=== PATIENT | male | born 1960 | race Caucasian/White ===

== ENCOUNTER 2023-03-11 18:21 | Outpatient (RCR) | payer MEDICARE, MEDICAID, SELFPAY | END 2023-04-04 23:59 | disposition home or self-care (01) | LOC: MM 18:21 | PROVIDERS: PCP Internal Medicine; Visit Provider Internal Medicine | DX: Z51.81 Encounter for therapeutic drug level monitoring (principal); Z79.01 Long term (current) use of anticoagulants ==

== ENCOUNTER 2023-03-14 07:46 | Outpatient (RCR) | payer MEDICARE, OTHER, SELFPAY | END 2023-04-11 13:52 | disposition home or self-care (01) | LOC: PT 07:46 | PROVIDERS: PCP Internal Medicine; Visit Provider Family Medicine | DX: M54.2 Cervicalgia (principal); R42 Dizziness and giddiness | CPT/HCPCS: 97012; 97110; 97140; 97163 ==

== ENCOUNTER 2023-04-01 13:20 | Outpatient (OUT) | payer OTHER, SELFPAY ==
--- NOTE | 2023-04-02 13:42 | CONS_ITS ---
CONSULTATION DATE: ??04/02/2023 TO:? Say Amato M.D. CHIEF COMPLAINT:? Includes right lower back pain. HISTORY OF PRESENT ILLNESS:? Review of systems, past medical/surgical history were obtained and documented on the health questionnaire and is available upon request. Patient is a 62-year-old male, reports having pain in the above area over the last 10 years.? It occurred spontaneously and increased gradually to its current state, where he complains to be having 5-7/10 pain, sharp in character in his lower back, worse on the right side, increased with activities such as standing, walking and performing transitioning maneuvers.? He feels most comfortable in the semi-recumbent position.? He denies any change in bowel and bladder habits or new sensorimotor changes in his lower extremities. MEDICATION:? Current medication includes tramadol.? He takes 50 mg pills, two pills at times up to t.i.d., which offers him only marginal relief.? Topiramate 50 mg two pills b.i.d. for his neuropathy and clonidine 0.1 mg b.i.d.? He was also on Coumadin 5 mg a day. His MARYLOU on today?s visit is 46. EXAM:? His examination is notable for patient having no clinical radiculopathy or myelopathy involving his lower extremities.? He had severe pain with lumbar facet loading maneuvers occurring bilaterally, markedly worse on the right than the left side, appearing most significantly in the L4 through S1 levels with associated myofascial spasm of the lumbar paravertebral muscles.? It is also noted that patient had hypoesthesia from approximately his waist on down distally.? IMPRESSION:? Our impression is patient with chronic pain secondary to lumbosacral spondylosis with facet joint loading pain clinically on the right side at L4-5, L5-S1, worse on the right than the left side; myofascial spasm of the lumbar paravertebral muscles. RECOMMENDATIONS:? I have recommended he consider undergoing CT scan of the lumbar spine without contrast for his lumbago.? I have placed him on baclofen 10 mg pills, half a pill to one pill t.i.d., initiate aquatic therapy and to proceed with a diagnostic right sided L4-5, L5-S1 facet joint injection under fluoroscopic guidance.? As part of providing excellent, safe, comprehensive care, the following was completed at our patient's visit: 1. A medication reconciliation and review to ensure accurate knowledge of current/active medications, including asking our patients to inform us about any wvmq-meh-uhsapds medications or herbal remedies/nutritional supplements/alternative remedies. 2. A review to specifically ensure our patients have had annual screening for: elevated body mass index (BMI, see intake chart for exact total), tobacco use, screening for depression, and screening for unhealthy alcohol use.? When screening is concerning, patients are provided with education and the specific recommendation to discuss the concerning health issue and treatment options with their primary care provider. SHANNA
== END 2023-04-01 13:21 | disposition home or self-care (01) ==
LOC: PM 13:22
PROVIDERS: PCP Internal Medicine; Visit Provider Anesthesiology Pain Medicine
DX: M47.817 Spondylosis without myelopathy or radiculopathy, lumbosacral region (principal); G89.29 Other chronic pain; M62.838 Other muscle spasm
CPT/HCPCS: G0463

== ENCOUNTER 2023-04-10 10:46 | Outpatient (RCR) | payer MEDICARE, MEDICAID, SELFPAY | END 2023-05-05 16:56 | disposition home or self-care (01) | LOC: MM 10:46 | PROVIDERS: PCP Internal Medicine; Visit Provider Internal Medicine | DX: Z51.81 Encounter for therapeutic drug level monitoring (principal); Z79.01 Long term (current) use of anticoagulants | CPT/HCPCS: 85610; G0463 ==

== ENCOUNTER 2023-04-16 07:32 | Outpatient (OUT) | payer MEDICARE, SELFPAY ==
--- NOTE | 2023-04-16 07:36 | CT_ITS ---
The [address] [address] Patient Name: ANDRY PIERRE MRN: [id number] date: 1960 Sex: M Assigned Patient Location: CT Current Patient Location: [facility] Accession/Order Number: [id number] Exam Date: 04/16/2023 07:43 Report Date: 04/16/2023 10:50 At the request of: MARY SANZ Procedure: CT lumbar spine wo con EXAM: CT lumbar spine wo con CLINICAL INDICATION: Lumbar Spondylosis, multiple falls COMPARISON: CT abdomen/pelvis 01/07/2023. TECHNIQUE: Multiple axial images were obtained of the lumbar spine. Soft tissue and bone windows in coronal and sagittal planes were obtained and reviewed. Dose reduction techniques were achieved by using automated exposure control and/or adjustment of mA and/or kV according to patient size and/or use of iterative reconstruction technique. FINDINGS: Normal osseous mineralization. Five nonrib-bearing lumbar-type vertebral bodies demonstrate maintained heights and anterior to posterior alignment. No fracture or traumatic malalignment. No acute prevertebral or paraspinal soft tissue abnormalities. Visualized osseous pelvis is intact. Mild multilevel spondylotic changes with varying degrees of osteophytic ridging and facet/ligamentum flavum hypertrophy. These are similar to 01/07/2023. Slight disc bulges at L3-L4 and L5-S1. No high-grade spinal canal or foraminal narrowing at any lumbar level. No acute abnormality in the visualized abdomen or pelvis. CT/CT lumbar spine wo con IMPRESSION: 1. No lumbar spine fracture or traumatic malalignment. No substantial change since 01/07/2023. 2. Mild multilevel lumbar spondylotic changes. Electronically authenticated by: AKBAR HERNANDEZ Date: 04/16/2023 10:50
== END 2023-04-16 07:33 | disposition home or self-care (01) ==
LOC: CT 07:32
PROVIDERS: PCP Family Medicine; Visit Provider Anesthesiology Pain Medicine
DX: M47.816 Spondylosis without myelopathy or radiculopathy, lumbar region (principal)
CPT/HCPCS: 72131; 85610; G0463

== ENCOUNTER 2023-04-22 07:26 | Day surgery (SDC) | payer MEDICARE, SELFPAY ==
[2023-04-22 07:56] LABS: INR 1.67; Prothrombin Time 17.2 sec (9.0-11.6)
[2023-04-22 08:32] VITALS: BP 124/88; PULSE 60; RESP 16; TEMP 36.2; O2SAT 98
[2023-04-22 08:44] LABS: Glucometer 130 mg/dL (74-106)
[2023-04-22] MEDS: BUPIVACAINE HCL 0.25% PF 25 MG/10 ML VIAL 4 ML INJ (09:07)
--- NOTE | 2023-04-22 10:08 | W.PM.PROCNOT ---
Date of procedure: 04/22/23 Pre-op diagnosis: Lumbar Spondylosis Post-op diagnosis: same Procedure: Right Lumbar L4/5, L5/S1 facet injection Under fluoroscopic guidance Solution injected: 2millilitersMarcaine 0.25% Anesthesia :none Immediate complications none Time out process compliant After informed consent obtained from the patient placed in the Prone proposition . area was prepped and draped in a sterile fashion using betadine. 25 gauge spinal needle inserted over each of the above mentioned target areas . [place] were directed towards the target under fluoroscopic guidance . after encountering each of the targets , no indication of intravascular intraneuronal or intrathecal needle tip placement. Then 0 .5 to 1 Milliliter was injected at each level. [place] removed postoperatively. patient transferred to recovery in stable condition to be discharged home after meeting criteria Surgeon: Sandy Kumar
[2023-04-22 13:29] VITALS: BP 152/82; BP 161/83; PULSE 56; RESP 20; O2SAT 95; O2SAT 96
== END 2023-04-22 09:13 | disposition home or self-care (01) ==
LOC: SURGOUT 07:27
PROVIDERS: PCP Internal Medicine; Visit Provider Anesthesiology Pain Medicine
DX: M47.816 Spondylosis without myelopathy or radiculopathy, lumbar region (principal)
CPT/HCPCS: 36415; 64493; 64494; 82948; 85610

== ENCOUNTER 2023-05-06 09:13 | Outpatient (RCR) | payer MEDICARE, MEDICAID, SELFPAY | END 2023-06-05 17:30 | disposition home or self-care (01) | LOC: MM 09:13 | PROVIDERS: PCP Family Medicine; Visit Provider Internal Medicine | DX: Z51.81 Encounter for therapeutic drug level monitoring (principal); Z79.01 Long term (current) use of anticoagulants ==

== ENCOUNTER 2023-05-15 13:35 | Outpatient (OUT) | payer MEDICARE, SELFPAY ==
--- NOTE | 2023-05-15 | CONS_ITS ---
PROCEDURE DATE: ??05/15/2023 PROCEDURE:? Trigger point injection right erector spinae muscle at the L5 level. PREOPERATIVE DIAGNOSIS:? Pain secondary to myofascial spasm. POSTOPERATIVE DIAGNOSIS:? Pain secondary to myofascial spasm. SOLUTION USED FOR INJECTION:? 2 mL of 2% lidocaine, 2 mL of 0.25% Marcaine, Kenalog 10 mg total of 5 mL and 2 mL were used for injection at the site. IMMEDIATE COMPLICATIONS:? None. PROCEDURE:? After informed consent was obtained from the patient, placed in the prone position.? Skin overlying the area was prepped with alcohol.?? A 22 gauge spinal needle was inserted over the anesthetized area and directed towards the belly of the right erector spinae muscle at the L5 level.? After having a positive twitch response, we injected 2 mL of solution.? No indication of intrathecal needle tip placement or intraneural injection.? Post procedure, needle was removed.? Patient reports reduction in pain symptoms post procedurally.? Patient had no sensory deficits post procedurally.? Also, of note, on examination today, the patient had dysesthesia and hypoesthesia overlying the distribution of the lateral cutaneous branch of the iliohypogastric nerve with myofascial spasm of the right gluteus medius muscle.? Patient had nothing to suggest any signs consistent with lumbar radiculopathy or myelopathy on today?s visit. SHANNA
== END 2023-05-15 13:36 | disposition home or self-care (01) ==
LOC: PM 13:35
PROVIDERS: PCP Internal Medicine; Visit Provider Anesthesiology Pain Medicine
DX: M62.838 Other muscle spasm (principal)
CPT/HCPCS: 20552

== ENCOUNTER 2023-05-27 12:45 | Outpatient (RCR) | payer MEDICARE, SELFPAY | END 2023-06-14 16:48 | disposition home or self-care (01) | LOC: PT 12:45 | PROVIDERS: PCP Family Medicine; Visit Provider Anesthesiology Pain Medicine | DX: M47.816 Spondylosis without myelopathy or radiculopathy, lumbar region (principal) | CPT/HCPCS: 97113; 97161; 97530 ==

== ENCOUNTER 2023-06-06 10:15 | Outpatient (RCR) | payer MEDICARE, MEDICAID, SELFPAY | END 2023-07-04 16:48 | disposition home or self-care (01) | LOC: MM 10:15 | PROVIDERS: PCP Family Medicine; Visit Provider Internal Medicine | DX: Z51.81 Encounter for therapeutic drug level monitoring (principal); Z79.01 Long term (current) use of anticoagulants ==

== ENCOUNTER 2023-06-10 10:18 | Day surgery (SDC) | payer MEDICARE, MEDICAID, SELFPAY ==
[2023-06-10 10:49] LABS: INR 3.42; Prothrombin Time 33.8 sec (9.0-11.6)
== END 2023-06-10 11:05 | disposition home or self-care (01) ==
PROVIDERS: PCP Family Medicine; Visit Provider Anesthesiology Pain Medicine
DX: Z53.8 Procedure and treatment not carried out for other reasons (principal); G57.91 Unspecified mononeuropathy of right lower limb
CPT/HCPCS: 36415; 85610

== ENCOUNTER 2023-06-24 11:37 | Day surgery (SDC) | payer MEDICARE, SELFPAY ==
[2023-06-24 12:16] LABS: Prothrombin Time 11.6 sec (9.0-11.6)
[2023-06-24 12:34] VITALS: BP 154/93; PULSE 68; RESP 16; TEMP 36.5; O2SAT 98
[2023-06-24 12:41] LABS: Glucometer 197 mg/dL (74-106)
[2023-06-24] MEDS: BUPIVACAINE HCL 0.25% PF 25 MG/10 ML VIAL 5 ML INJ (13:33)
[2023-06-24 13:35] VITALS: BP 181/101; BP 187/108; PULSE 59; RESP 20; O2SAT 96; O2SAT 97
--- NOTE | 2023-06-24 13:57 | W.PM.PROCNOT ---
Date of procedure: 06/24/23 Pre-op diagnosis: Right lateral cutaneous iliohypogastric neuritis Post-op diagnosis: same as pre-op Procedure: Right Lateral cutaneous branch Iliohypogastric nerve injection, diagnostic Performed under fluoroscopic guidance Immediate complications none Anesthesia: none Solution used for injection: In each syringe, 2 milliliters 0.25% Marcaine 2.5 mL is used for injection for each side Time out process compliant After informed consent obtained patient was brought to the procedure room placed in the prone position skin overlying the area was prepped and draped in a sterile fashion using betadine. 25 gauge spinal needle Insert over each of the target areas identified in fluoroscopy corresponding needles were advanced Under fluoroscopic guidance until the target/targets encountered , no indication of intravascular or Intraneuronal needle tip placement. Solution injected .needles removed post procedurally. patient transferred to recovery room in stable condition to be discharged home after meeting criteria Anesthesia: Local Surgeon: Snady Kumar Condition: stable
== END 2023-06-24 13:39 | disposition home or self-care (01) ==
LOC: SURGOUT 11:37
PROVIDERS: PCP Family Medicine; Visit Provider Anesthesiology Pain Medicine
DX: G57.81 Other specified mononeuropathies of right lower limb (principal); G57.11 Meralgia paresthetica, right lower limb; Z79.84 Long term (current) use of oral hypoglycemic drugs; Z79.01 Long term (current) use of anticoagulants
CPT/HCPCS: 36415; 64425; 77002; 82948; 85610

== ENCOUNTER 2023-07-03 08:00 | Outpatient (OUT) | payer MEDICARE, SELFPAY ==
--- NOTE | 2023-07-03 08:16 | P.CN_ITS ---
Consult Note: HPI Data of Consult Patient: known to practice within the last 3 years Requesting Physician: Kimmie Ayoub NP Primary Care Provider: Say Amato MD Consult Narrative Reason for consult: f/u Narrative: Jono Grace a pleasant 62 year old male presents for evaluation and management of low back pain and right LCIH neuritis. Recently underwent Right Lateral cutaneous branch Iliohypogastric nerve injection, diagnostic with 80% relief after procedure. Today rating pain 7/10 in right low back radiating down right leg. Pain is worse with walking, standing, twisting, bending, activity, stairs, activity. Medications are mildly-moderately beneficial. cc:: CC: Kimmie Ayoub NP Review of Systems ROS Status of ROS 10 or more systems reviewed and unremarkable except as noted in history and below Musculoskeletal Reports: back pain and joint pain Meds Home Medications and Allergies Home Medications Medication Instructions Recorded Confirmed Type atorvastatin 40 mg tablet 40 mg PO .QD 04/01/23 06/24/23 History baclofen 10 mg tablet 10 mg PO TID 04/01/23 06/24/23 History candesartan 8 mg tablet 8 mg PO .QD 04/01/23 06/24/23 History cetirizine 10 mg tablet 10 mg PO DAILY PRN allergy symptoms 04/01/23 06/24/23 History cholecalciferol (vitamin D3) 50 50 mcg PO DAILY 04/01/23 06/24/23 History mcg (2,000 unit) capsule (D3-2000) clonidine HCl 0.1 mg tablet 0.1 mg PO BID 04/01/23 06/24/23 History furosemide 40 mg tablet 40 mg PO BID 04/01/23 06/24/23 History insulin degludec 200 unit/mL (3 40 unit subcut BID 04/01/23 06/24/23 History mL) subcutaneous pen (Tresiba FlexTouch U-200 insulin) metformin 500 mg tablet 500 mg PO BID 04/01/23 06/24/23 History montelukast 10 mg tablet 10 mg PO .QD 04/01/23 06/24/23 History nifedipine 90 mg tablet,extended 90 mg PO .QD 04/01/23 06/24/23 History release 24 hr oxybutynin chloride 10 mg 10 mg PO .QD 04/01/23 06/24/23 History tablet,extended release 24 hr pantoprazole 40 mg tablet,delayed 40 mg PO .QD 04/01/23 06/24/23 History release potassium chloride 20 mEq 20 meq PO .QD 04/01/23 06/24/23 History tablet,extended release topiramate 50 mg tablet 50 mg PO Q12H 04/01/23 04/22/23 History tramadol 50 mg tablet 100 mg PO Q12H PRN pain 04/01/23 06/24/23 History warfarin 5 mg tablet 5 mg PO .QD 04/01/23 06/24/23 History hydrocodone 5 mg-acetaminophen 325 1 tab PO BID PRN pain 05/15/23 06/24/23 History mg tablet hydrocodone 5 mg-acetaminophen 325 1 tab PO BID PRN pain #60 tabs 05/15/23 06/24/23 Rx mg tablet Allergies Allergy/AdvReac Type Severity Reaction Status Date / Time diazepam [From Valium] Allergy Verified 06/24/23 12:42 gabapentin [From Neurontin] Allergy Verified 06/24/23 12:42 BETA BLOCKERS Allergy Headache Uncoded 06/24/23 12:42 Exam Constitutional Documenting provider has reviewed patient's vital signs: yes Common normals: no apparent distress, oriented x3, healthy appearing, alert and well nourished General appearance: cooperative Nutritional appearance: obese HENMT Common normals: normocephalic, hearing grossly normal bilaterally and moist oral mucous membranes Head and scalp: normocephalic Eye Common normals: PERRL Pupil: PERRL Neck & C-Spine Common normals: full ROM General: normal visual inspection Chest Common normals: inspection of chest normal Respiratory Common normals: normal respiratory effort, no retractions and no use of accessory muscles Back & Pelvis Lumbar spine/lower back: ROM limited, pain with ROM, lumbar spinal tenderness and straight leg raise positive right Sacroiliac joints: SI joint(s) abnormal Other: tenderness over the right LCIH nerve, positive thigh thrust, fabers, gaenslens pain following right LCIH nerve pattern radicular pain following L4-5 on right side Neuro Common normals: oriented x3, CN's II-XII intact bilaterally, moves all extremities, no focal motor deficits, no sensory deficits noted and deep tendon reflexes 2+ bilaterally Sensorium/orientation: alert Motor exam: strength 5/5 throughout and no movement abnormalities noted Psych Common normals: mental status grossly normal, thought process normal, cooperative, affect normal, speech normal and activity/motor behavior normal Speech: normal speech Thought process: normal thought process Results Additional Findings Additional findings: I have checked an [place]AR[place] report on this patient today and there are no aberrancies noted in the prescribing history.?? A drug screen was completed and reviewed within the last year, and if there has not been a drug screen completed we ordered one today to monitor higher risk, state monitored pain medication use. As part of providing excellent, safe, comprehensive care, the following was completed at our patient's visit: 1. A medication reconciliation and review to ensure accurate knowledge of current/active medications, including asking our patients to inform us about any [id number]-ycl-[id number] medications or herbal remedies/nutritional s upplements/alternative remedies. 2. A review to specifically ensure our patients have had annual screening for: elevated body mass index (BMI), tobacco use, screening for depression, and screening for unhealthy alcohol use. When screening is concerning, patients are provided with education and the specific recommendation to discuss the concerning health issue and treatment options with their primary care provider. Assessment and Plan Assessment and Plan (1) Lumbar radiculopathy, right: Assessment and Plan: The patient has had over 3 months of moderate to severe low back pain with functional impairment and inadequate response to conservative care including NSAIDS (unless there are contraindication such as concurrent blood thinners), multiple oral or topical pain medications, and home exercise program/physical therapy.? Patient has completed >6 weeks of guided home exercise program and/or formal physical therapy program without relief of their symptoms.?PT worsened pain was only able to do 2 visits. I have reviewed the imaging of the lumbar spine and no red flags were identified.? The imaging reveals radiographic findings consistent with lumbar radiculopathy ? The Oswestry Disability Index was completed, and the patient scored a 42%.? The patient noted the following:?? severe pain, pain prevents him from walking more than 100 yards, pain prevents him from sitting more than 100 yards, pain prevents him from standing more than 1 hour, because of his pain he gets less than 4 hours of sleep, pain has restricted social life and travel We discussed the risks and benefits of the procedure with the patient, and we are NOT planning on using sedation as outlined in the guidelines from Medicare unless there is a documented reason that sedation would be strongly recommended.?? ?The procedure will be completed with fluoroscopic guidance.? (2) Neuritis: Assessment and Plan: Right LCIH neuritis >80% pain relief and functional ability as a result of diagnostic injection (3) Sacroiliac joint dysfunction of right side: (4) Chronic anticoagulation: Assessment and Plan: warfarin (5) Diabetes: Plan L4-5 KORIN under fluoroscopy continue current medications, will be filling tramadol with PCP right LCIH thermal RFA under fluoroscopy f/u 2 weeks after KORIN
== END 2023-07-03 08:01 | disposition home or self-care (01) ==
LOC: PM 08:00
PROVIDERS: PCP Family Medicine; Visit Provider Nurse Practitioner
DX: M54.16 Radiculopathy, lumbar region (principal); M53.3 Sacrococcygeal disorders, not elsewhere classified; D68.318 Other hemorrhagic disorder due to intrinsic circulating anticoagulants, antibodies, or inhibitors; E11.9 Type 2 diabetes mellitus without complications; Z79.891 Long term (current) use of opiate analgesic; Z51.81 Encounter for therapeutic drug level monitoring
CPT/HCPCS: G0463

== ENCOUNTER 2023-07-07 02:36 | Outpatient (RCR) | payer MEDICARE, MEDICAID, SELFPAY | END 2023-08-05 17:40 | disposition home or self-care (01) | LOC: MM 02:36 | PROVIDERS: PCP Family Medicine; Visit Provider Internal Medicine | DX: Z51.81 Encounter for therapeutic drug level monitoring (principal); Z79.01 Long term (current) use of anticoagulants ==

== ENCOUNTER 2023-07-22 10:13 | Day surgery (SDC) | payer MEDICARE, SELFPAY ==
[2023-07-22 10:48] LABS: INR 1.05; Prothrombin Time 11.1 sec (9.0-11.6)
[2023-07-22 11:02] VITALS: BP 144/97; PULSE 76; RESP 16; TEMP 36.3; O2SAT 98
[2023-07-22 11:12] LABS: Glucometer 229 mg/dL (74-106)
[2023-07-22 11:55] VITALS: BP 157/71; PULSE 59; RESP 16; O2SAT 93
[2023-07-22] MEDS: LIDOCAINE HCL 2% PF 100 MG/5 ML VIAL 4 ML INJ (11:55)
[2023-07-22] MEDS: IOHEXOL 240 MG/ML - 10 ML VIAL INJ (11:55)
[2023-07-22] MEDS: BUPIVACAINE HCL 0.25% PF 25 MG/10 ML VIAL 2 ML INJ (11:55)
[2023-07-22] MEDS: METHYLPREDNISOLONE ACETATE 80 MG/ML VIAL INJ (11:55)
[2023-07-22] MEDS: 0.9 % SODIUM CHLORIDE 10 ML SYRINGE - SALINE FLUSH 2 ML INJ (11:55)
[2023-07-22 11:58] VITALS: BP 169/70; PULSE 72; RESP 16; O2SAT 93
--- NOTE | 2023-07-22 12:24 | P.ON_ITS ---
Date of procedure: 07/22/23 Pre-op diagnosis: Lumbar Radiculopathy Post-op diagnosis: same as pre-op Procedure: Lumbar 4/5 Epidural Steroid Injection Under fluoroscopic guidance Immediate complications none Solution used for injection: Marcaine 0.25% 2mL, 2cc Normal saline, Depo-Medrol 80mg Omnipaque 3 mL Anesthesia local 2% lidocaine up to 4ml Timeout process compliant After informed consent obtained. Patient brought to the procedure room placed in the prone position. Skin overlying the area was prepped and draped in a sterile fashion using betadine. 25 gauge needle used to raise a skin wheel with local anesthetic over the target area identified under fluoroscopy. A 17 gauge Touhy needle Was inserted over the anesthetized area and directed towards the inter- space under fluoroscopic guidance. Epidural space was identified with loss of resistance technique to air. Needle Tip placement confirmed with injection of contrast solution. Steroid solution was then injected. Anesthesia: Local Surgeon: Sandy Kumar Condition: stable
== END 2023-07-22 12:09 | disposition home or self-care (01) ==
LOC: SURGOUT 10:14
PROVIDERS: PCP Family Medicine; Visit Provider Anesthesiology Pain Medicine
DX: M54.16 Radiculopathy, lumbar region (principal); E11.9 Type 2 diabetes mellitus without complications; Z79.01 Long term (current) use of anticoagulants
CPT/HCPCS: 36415; 62323; 82948; 85610; J1040; Q9966

== ENCOUNTER 2023-08-06 08:29 | Outpatient (OUT) | payer MEDICARE, MEDICAID, SELFPAY ==
--- NOTE | 2023-08-06 09:05 | P.CN_ITS ---
Consult Note: HPI Data of Consult Requesting Physician: Kimmie Ayoub NP Primary Care Provider: Say Amato MD Consult Narrative Reason for consult: f/u Narrative: Jono Grace a pleasant 62 year old male presents for evaluation and management of chronic low back pain with radiculopathy. unfortunately patient had no relief from L4-5 interlaminar KORIN. Patient continues to have moderate to severe low back pain that is radiating into bilateral legs, pain worse on right side. Patient has fallen again since last visit. Today rating pain 8/10 in low back and bilateral hips. cc:: CC: Kimmie Ayoub NP Review of Systems ROS Status of ROS 10 or more systems reviewed and unremarkable except as noted in history and below Musculoskeletal Reports: back pain and joint pain PFSH PFSH Medical History Acid reflux ?K21.9 - Gastro-esophageal reflux disease without esophagitis (ICD-10) Angina at rest ?I20.89 - Other forms of angina pectoris (ICD-10) CHF (congestive heart failure) ?I50.9 - Heart failure, unspecified (ICD-10) COPD (chronic obstructive pulmonary disease) ?J44.9 - Chronic obstructive pulmonary disease, unspecified (ICD-10) Emphysema lung ?J43.9 - Emphysema, unspecified (ICD-10) High cholesterol ?E78.00 - Pure hypercholesterolemia, unspecified (ICD-10) Implantable loop recorder present ?Z95.818 - Presence of other cardiac implants and grafts (ICD-10) Kidney failure ?N19 - Unspecified kidney failure (ICD-10) Palpitations ?R00.2 - Palpitations (ICD-10) Stroke ?I63.9 - Cerebral infarction, unspecified (ICD-10) Surgical History H/O arthroscopic knee surgery ?Z98.890 - Other specified postprocedural states (ICD-10) H/O inguinal hernia repair ?Z98.890 - Other specified postprocedural states (ICD-10) ?Z87.19 - Personal history of other diseases of the digestive system (ICD-10) History of Achilles tendon repair ?Z98.890 - Other specified postprocedural states (ICD-10) History of ankle surgery ?Z98.890 - Other specified postprocedural states (ICD-10) History of cardiac cath ?Z98.890 - Other specified postprocedural states (ICD-10) History of carpal tunnel release ?Z98.890 - Other specified postprocedural states (ICD-10) History of hydrocelectomy ?Z98.890 - Other specified postprocedural states (ICD-10) History of sinus surgery ?Z98.890 - Other specified postprocedural states (ICD-10) History of tonsillectomy ?Z90.89 - Acquired absence of other organs (ICD-10) Hx of cholecystectomy ?Z90.49 - Acquired absence of other specified parts of digestive tract (ICD- 10) Status post deep brain stimulator placement ?Z96.89 - Presence of other specified functional implants (ICD-10) Status post emergency tracheotomy for assistance in breathing ?Z93.0 - Tracheostomy status (ICD-10) Meds Home Medications and Allergies Home Medications Medication Instructions Recorded Confirmed Type atorvastatin 40 mg tablet 40 mg PO .QD 04/01/23 07/22/23 History baclofen 10 mg tablet 10 mg PO TID 04/01/23 07/22/23 History candesartan 8 mg tablet 8 mg PO .QD 04/01/23 07/22/23 History cetirizine 10 mg tablet 10 mg PO DAILY PRN allergy symptoms 04/01/23 07/22/23 History cholecalciferol (vitamin D3) 50 50 mcg PO DAILY 04/01/23 07/22/23 History mcg (2,000 unit) capsule (D3-2000) clonidine HCl 0.1 mg tablet 0.1 mg PO BID 04/01/23 07/22/23 History furosemide 40 mg tablet 40 mg PO BID 04/01/23 07/22/23 History insulin degludec 200 unit/mL (3 40 unit subcut BID 04/01/23 07/22/23 History mL) subcutaneous pen (Tresiba FlexTouch U-200 insulin) metformin 500 mg tablet 500 mg PO BID 04/01/23 07/22/23 History montelukast 10 mg tablet 10 mg PO .QD 04/01/23 07/22/23 History nifedipine 90 mg tablet,extended 90 mg PO .QD 04/01/23 07/22/23 History release 24 hr oxybutynin chloride 10 mg 10 mg PO .QD 04/01/23 07/22/23 History tablet,extended release 24 hr pantoprazole 40 mg tablet,delayed 40 mg PO .QD 04/01/23 07/22/23 History release potassium chloride 20 mEq 20 meq PO .QD 04/01/23 07/22/23 History tablet,extended release topiramate 50 mg tablet 50 mg PO Q12H 04/01/23 07/22/23 History tramadol 50 mg tablet 100 mg PO Q12H PRN pain 04/01/23 07/22/23 History warfarin 5 mg tablet 5 mg PO .QD 04/01/23 07/22/23 History Allergies Allergy/AdvReac Type Severity Reaction Status Date / Time diazepam [From Valium] Allergy Verified 07/22/23 10:57 gabapentin [From Neurontin] Allergy Verified 07/22/23 10:57 BETA BLOCKERS Allergy Headache Uncoded 07/22/23 10:57 Exam Constitutional Documenting provider has reviewed patient's vital signs: yes Common normals: no apparent distress, oriented x3, healthy appearing, alert and well nourished General appearance: cooperative Nutritional appearance: obese HENSD Common normals: normocephalic, hearing grossly normal bilaterally and moist oral mucous membranes Head and scalp: normocephalic Eye Common normals: PERRL Pupil: PERRL Neck & C-Spine Common normals: full ROM General: normal visual inspection Chest Common normals: inspection of chest normal Respiratory Common normals: normal respiratory effort, no retractions and no use of accessory muscles Back & Pelvis Lumbar spine/lower back: ROM limited, pain with ROM, lumbar spinal tenderness and straight leg raise positive right Sacroiliac joints: SI joint(s) abnormal Other: tenderness over the right LCIH nerve, positive thigh thrust, fabers, gaenslens pain following right LCIH nerve pattern radicular pain on right side radiculopathy when standing or sitting for extended periods of time negative internal external rotation of bilateral hips, no tenderness over GTB Extremity Common normals: normal to inspection and full ROM Neuro Common normals: oriented x3, CN's II-XII intact bilaterally, moves all extremities, no focal motor deficits, no sensory deficits noted and deep tendon reflexes 2+ bilaterally Sensorium/orientation: alert Gait (neuro): antalgic Motor exam: strength 5/5 throughout and no movement abnormalities noted Psych Common normals: mental status grossly normal, thought process normal, cooperative, affect normal, speech normal and activity/motor behavior normal Speech: normal speech Thought process: normal thought process Assessment and Plan Assessment and Plan (1) Lumbar radiculopathy, right: (2) Sacroiliac joint dysfunction of right side: (3) Chronic anticoagulation: Plan unfortunately patient had no relief from L4-5 interlaminar KORIN. Patient continues to have moderate to severe low back pain that is radiating into bilateral legs, pain worse on right side. Patient has fallen again since last visit. Today rating pain 8/10 in low back and bilateral hips. Right L3-4 4-5 TFESI under ultrasound with Dr Mendiola, if continues to have right SIJ pain and weakness perform right nerve block innervating the SIJ 2 weeks after continue current medications continue HEP f/u 2 weeks after procedures
== END 2023-08-06 08:30 | disposition home or self-care (01) ==
LOC: PM 08:32
PROVIDERS: PCP Family Medicine; Visit Provider Nurse Practitioner
DX: M54.16 Radiculopathy, lumbar region (principal); R68.89 Other general symptoms and signs; Z79.01 Long term (current) use of anticoagulants
CPT/HCPCS: G0463

== ENCOUNTER 2023-08-11 09:58 | Day surgery (SDC) | payer MEDICARE, SELFPAY ==
[2023-08-11 10:20] LABS: INR 2.15; Prothrombin Time 21.8 sec (9.0-11.6)
[2023-08-11 11:15] VITALS: BP 155/97; PULSE 78; RESP 16; TEMP 36.6; O2SAT 97
[2023-08-11 11:20] LABS: Glucometer 349 mg/dL (74-106)
[2023-08-11 11:38] VITALS: BP 166/93; BP 169/99; PULSE 78; RESP 18; O2SAT 91; O2SAT 96
[2023-08-11] MEDS: TRIAMCINOLONE ACETONIDE 40 MG/ML VIAL INJ (11:38)
[2023-08-11] MEDS: BUPIVACAINE HCL 0.25% PF 25 MG/10 ML VIAL INJ (11:38)
[2023-08-11] MEDS: LIDOCAINE HCL 2% PF 100 MG/5 ML VIAL INJ (11:38)
[2023-08-11] MEDS: IOHEXOL 240 MG/ML - 10 ML VIAL INJ (11:38)
--- NOTE | 2023-08-11 11:39 | P.ON_ITS ---
Date of procedure: 08/11/23 Pre-op diagnosis: Lumbar stenosis with neurogenic claudication Post-op diagnosis: same as pre-op Procedure: Procedure: Right L3-4, L4-5 transforaminal epidural steroid injection Medications: Bupivacaine 0.5% 2cc, kenalog 40mg The patient was seen and examined in the preoperative holding area.? Informed consent was obtained and placed on the chart.? Patient was brought to the medical procedure unit and placed in the prone position where a timeout was completed verifying the correct patient, procedure site, position, and planned special equipment using sterile aseptic technique.? Under direct fluoroscopic visualization a 25-gauge Quincke tipped spinal needle was advanced to the designated neural foramen where contrast dye was injected to show adequate spread.? The needle was inserted at level right L3-4. There was no evidence of vascular or adverse uptake.? Epidural spread was appreciated.? The above- mentioned injectate was then placed in a 1.5 mL aliquot preceded by negative aspiration.? The needle was removed. The needle was inserted and the procedure repeated at level right L4-5.? The surgery site was covered.? Patient was taken to the postprocedural recovery area and monitored for an appropriate length of time before found suitable for discharge in the accompaniment of a responsible adult. Anesthesia: Local Surgeon: Ramon Mendiola Pathology: none sent Condition: stable Disposition: no change
== END 2023-08-11 11:45 | disposition home or self-care (01) ==
PROVIDERS: PCP Family Medicine; Visit Provider Anesthesiology
DX: M48.062 Spinal stenosis, lumbar region with neurogenic claudication (principal); Z79.84 Long term (current) use of oral hypoglycemic drugs; Z79.01 Long term (current) use of anticoagulants; Z79.899 Other long term (current) drug therapy
CPT/HCPCS: 36415; 64483; 64484; 64494; 85610; Q9966

== ENCOUNTER → 2023-09-22 09:09 | Day surgery (SDC) | payer MEDICARE, SELFPAY ==
[2023-09-22 09:33] LABS: INR 1.72; Prothrombin Time 17.7 sec (9.0-11.6)
[2023-09-22 10:30] VITALS: BP 130/91; PULSE 79; RESP 14; TEMP 36.3; O2SAT 96
[2023-09-22 10:45] LABS: Glucometer 443 mg/dL (74-106)
== END | disposition home or self-care (01) ==
PROVIDERS: PCP Family Medicine; Visit Provider Anesthesiology
PROC: (CPT 64450; principal; 2023-09-22 11:00)
DX: Z53.8 Procedure and treatment not carried out for other reasons (principal); M46.1 Sacroiliitis, not elsewhere classified; Z79.4 Long term (current) use of insulin
CPT/HCPCS: 64450; 36415; 82948; 85610

== ENCOUNTER 2023-09-24 13:57 | Outpatient (OUT) | payer MEDICARE, MEDICAID, SELFPAY ==
[2023-09-24 14:37] LABS: Bilirubin Urine NEGATIVE (NEGATIVE); Blood Urine NEGATIVE (NEGATIVE); Clarity Urine CLEAR (CLEAR); Color Urine LT. YELLOW (YELLOW); Glucose Urine UA >=1000 mg/dL (NEGATIVE); Ketones Urine NEGATIVE (NEGATIVE); Leukocyte Esterase Urine NEGATIVE (NEGATIVE); Nitrite Urine NEGATIVE (NEGATIVE); Protein Urine NEGATIVE (NEG/TRACE); Urobilinogen Urine 0.2 EU/dL (0.2-1.0)
[2023-09-24 15:00] LABS: Bacteria Urine NONE SEEN #/HPF (NONE SEEN); Mucus Urine TRACE (NONE SEEN); RBC Urine NONE SEEN #/HPF (0-2); Squamous Epithelial Cell Urine RARE #/LPF (NONE/RARE); WBC Urine 0-2 #/HPF (NONE SEEN)
[2023-09-24 15:01] LABS: Cast Seen? NONE SEEN #/LPF (NONE SEEN); Crystals Seen? None Seen #/HPF (None Seen)
== END 2023-09-24 13:58 | disposition home or self-care (01) ==
LOC: LAB 13:59
PROVIDERS: PCP Family Medicine; Visit Provider Family Medicine
DX: N39.0 Urinary tract infection, site not specified (principal)
CPT/HCPCS: 81001; 87086

== ENCOUNTER 2023-10-08 10:36 | Observation (INO) | payer MEDICARE, SELFPAY ==
[2023-10-08] VITALS (38 sets, daily range): BP systolic 124–166; BP diastolic 77–104; PULSE 49–79; RESP 9–55; TEMP 36.7–36.8; O2SAT 93–99; BMI 41.3
--- NOTE | 2023-10-08 | PCN_ITS ---
CARDIAC STRESS TEST Requesting Physician: Reba Hidalgo NP Procedure Date: 10/08/2023 PERFORMING PROVIDER: Benitez Ramirez M.D. INDICATION: Chest pain. STRESS TEST PROTOCOL: Lexiscan myocardial perfusion imaging. Resting heart rate: 59 Max heart rate: 81 Blood pressure, restin/84 Blood pressure, maximum: 164/86 EKG changes: No EKG changes meeting the criteria for ischemia. Symptoms: Patient had minimal chest pain after injection of Lexiscan. Pain resolved within several minutes after it started. Arrhythmias: PACs. CONCLUSION: 1. Baseline EKG demonstrates normal sinus rhythm with low voltage QRS. Septal infarct, age indeterminate noted. 2. There were no definite EKG changes meeting the criteria for ischemia post Lexiscan infusion. 3. Patient did have chest pain following Lexiscan injection; therefore, study is equivocal. 4. Please refer to separately performed and interpreted nuclear myocardial perfusion imaging. MTDD
--- NOTE | 2023-10-08 10:56 | XR_ITS ---
The [address] [address] Patient Name: ANDRY PIERRE MRN: [id number] date: 1960 Sex: M Assigned Patient Location: ER Current Patient Location: ER Accession/Order Number: [id number] Exam Date: 10/08/2023 11:15 Report Date: 10/08/2023 11:35 At the request of: ANDREWS ADLER Procedure: XR chest 1V EXAMINATION: XR chest 1V HISTORY: weak dizzy confused COMPARISON: 05/23/2022 TECHNIQUE: FINDINGS: LUNGS: No significant pulmonary parenchymal abnormalities. Low lung volumes VASCULATURE: No increased pulmonary vasculature. PLEURA: No pneumothorax, effusion, or pleural thickening. CARDIAC: No cardiomegaly or cardiac silhouette abnormality. MEDIASTINUM: No visible mass or adenopathy. BONES: No fracture or visible bone lesion. OTHER: [Neurostimulator extends off the field of view cranial leg.. XR/XR chest 1V IMPRESSION: Low volume exam, clear lungs Electronically authenticated by: MARLON BOWERS Date: 10/08/2023 11:35
--- NOTE | 2023-10-08 10:56 | ECG_ITS ---
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: : 1960 Requested By: LUIS MCCORMICK Order Number: [id number] Reading MD: LUIS MCCORMICK Measurements Intervals [place] Rate: 67 P: 90 WV: 302 QRS: 270 QRSD: 106 T: 159 QT: 422 QTc: 437 Interpretive Statements 1100 Sinus rhythm 2231 First degree AV block 3234 Anteroseptal myocardial infarction, age undetermined 3634 Inferior myocardial infarction, age undetermined 7100 Abnormal right axis deviation 0102 ARTIFACT PRESENT 9150 abnormal ECG Compared to ECG 05/10/2021 11:33:30 First degree AV block now present Myocardial infarct finding now present Right-axis deviation now present Electronically Signed On 10-09-2023 7:15:48 EST by LUIS MCCORMICK
--- NOTE | 2023-10-08 10:56 | CT_ITS ---
The [address] [address] Patient Name: ANDRY PIERRE MRN: [id number] date: 1960 Sex: M Assigned Patient Location: ER Current Patient Location: ER Accession/Order Number: [id number] Exam Date: 10/08/2023 11:15 Report Date: 10/08/2023 11:34 At the request of: ANDREWS CLOUD Procedure: CT stroke head/brain wo con EXAM: CT stroke head/brain wo con; [id number] REASON FOR EXAM: weak dizzy confused COMPARISON: CT head 05/29/2022 TECHNIQUE: Axial CT images of the head obtained without contrast. Multiplanar reformats generated at the scanner. Dose reduction technique used: Automated exposure control and/or adjustment of the mA and/or kV according to patient size and/or use of iterative reconstruction technique. FINDINGS: Parenchyma: -Mild generalized cerebral volume loss. -No midline shift or mass effect. Basilar cisterns are patent. -No acute intracranial hemorrhage. -No loss of cortical uaglde-white differentiation to indicate acute cortical infarct. Extra-axial spaces: No extra-axial fluid collection or hemorrhage. The left frontal approach deep brain stimulator is similar in position compared with 05/29/2022. The visualized portion of the lead appear intact. Ventricles: Normal in size and symmetric. Paranasal sinuses: Several mucous retention cysts in the ethmoid sinuses. No layering sinus fluid. Mastoid air cells: Visualized mastoids are clear. Orbits: No acute abnormality. Osseous: No acute findings. Soft tissues: No acute abnormality. CT/CT stroke head/brain wo con IMPRESSION: No acute intracranial abnormality demonstrated. Results of no acute intracranial abnormality conveyed to Andrews Cloud by Dr. Adams at 10/08/2023 8:33 AM PST. Electronically authenticated by: VIBHA ADAMS Date: 10/08/2023 11:34
--- NOTE | 2023-10-08 10:56 | CT_ITS ---
The [address] [address] Patient Name: ANDRY PIERRE MRN: [id number] date: 1960 Sex: M Assigned Patient Location: ER Current Patient Location: Accession/Order Number: [id number] Exam Date: 10/08/2023 11:15 Report Date: 10/08/2023 12:01 At the request of: ANDREWS ADLER Procedure: CT angio neck EXAM: CT angio head, CT angio neck HISTORY: weak dizzy confused COMPARISON: CT head performed the same day and reported separately. TECHNIQUE: Postcontrast CTA imaging of the head and neck was performed with coronal and sagittal reformats. Maximum intensity projection reformats were performed on a separate workstation. This CT exam was performed using one or more of the following dose reduction techniques: Automated exposure control, adjustment of the MA and/or kV according to patient size, or use of iterative reconstruction technique. FINDINGS: Aortic arch: Imaged portion shows no evidence of aneurysm. No significant stenosis of the major origins of the major arch vessels. Right carotid system: No evidence of significant (50% or greater) stenosis or occlusion. Left carotid system: No evidence of significant (50% or greater) stenosis or occlusion. Vertebral arteries: Codominant. No evidence of significant (50% or greater) stenosis or occlusion. Anterior circulation: No evidence of aneurysm, significant stenosis, or occlusion. Vertebrobasilar system: No evidence of aneurysm, significant stenosis, or occlusion. Venous sinuses: Grossly patent. Additional findings: Visualized portion of the lungs are clear. CT/CT angio neck IMPRESSION: No significant stenosis, large vessel occlusion or aneurysm involving the neck or intracranial arterial vasculature. Electronically authenticated by: HUGH ARCOS Date: 10/08/2023 12:01
--- NOTE | 2023-10-08 10:56 | CT_ITS ---
The [address] [address] Patient Name: ANDRY PIERRE MRN: [id number] date: 1960 Sex: M Assigned Patient Location: ER Current Patient Location: Accession/Order Number: [id number] Exam Date: 10/08/2023 11:15 Report Date: 10/08/2023 12:01 At the request of: ANDREWS ADLER Procedure: CT angio head EXAM: CT angio head, CT angio neck HISTORY: weak dizzy confused COMPARISON: CT head performed the same day and reported separately. TECHNIQUE: Postcontrast CTA imaging of the head and neck was performed with coronal and sagittal reformats. Maximum intensity projection reformats were performed on a separate workstation. This CT exam was performed using one or more of the following dose reduction techniques: Automated exposure control, adjustment of the MA and/or kV according to patient size, or use of iterative reconstruction technique. FINDINGS: Aortic arch: Imaged portion shows no evidence of aneurysm. No significant stenosis of the major origins of the major arch vessels. Right carotid system: No evidence of significant (50% or greater) stenosis or occlusion. Left carotid system: No evidence of significant (50% or greater) stenosis or occlusion. Vertebral arteries: Codominant. No evidence of significant (50% or greater) stenosis or occlusion. Anterior circulation: No evidence of aneurysm, significant stenosis, or occlusion. Vertebrobasilar system: No evidence of aneurysm, significant stenosis, or occlusion. Venous sinuses: Grossly patent. Additional findings: Visualized portion of the lungs are clear. CT/CT angio head IMPRESSION: No significant stenosis, large vessel occlusion or aneurysm involving the neck or intracranial arterial vasculature. Electronically authenticated by: HUGH ARCOS Date: 10/08/2023 12:01
--- NOTE | 2023-10-08 10:58 | ED_ITS ---
HPI - General Adult General Chief complaint: Dizziness Stated complaint: DIZZINESS Time Seen by Provider: 10/08/23 10:56 Source: patient Mode of arrival: walk-in Limitations: physical limitation History of Present Illness HPI narrative: Patient is a 66-year-old male who is coming to the Emergency Room with multitude of complaints of been ongoing for the past 2 weeks. Patient is having expressive aphasia, intermittent chest pain for the past several weeks, intermittent shortness of breath, intermittent double vision, intermittent headaches, lightheaded, dizziness and no vertigo. Patient was in Dr. AMATO office today, patient was sent to the Emergency Room for workup and evaluation. Patient has a neurologist at the [facility], that is who has placed the brain stimulator secondary to tremors to the right hand/arm. Patient was at the [facility] 2 weeks ago, To have his remote fixed tile board the brain similar. The brain stimulator has help minimize the tremors initially in the right arm, but they are starting again. Patient is also developing tremors in his left arm. Patient has been told by [facility] that he might have myasthenia gravis. Patient has a history of 3 strokes and presumed for strokes today. The 1st Stroke has significantly Caused residual decrease his sensation to The left arm and left leg. Patient has not Had any other significant symptoms Or residual symptoms for a 2nd or stroke. Patient symptoms started 2 weeks ago with expressive aphasia, double vision, impairment headaches, lightheaded, dizziness. Patient has no significant decrease in use of his arms or legs today comparatively to 2 or 3 weeks ago. Patient has no abdominal pain, nausea or vomiting. Patient's is at bedside along with a long-time friend. Patient was brought to the Emergency Room by . Patient was at Dr. Amato office initially sent to the Emergency Room for evaluation. Patient's having no significant headache at this time. . All systems are negative except as noted/marked. All systems reviewed and otherwise negative. . Nurses note and vital signs reviewed and patient is not hypoxic. Patient is very notable expressive aphasia, has Been persistent for the past 2 weeks, slightly improving in the past 2 days. Patient currently does not believe he is having any double vision. General: The patient appears well and in no apparent distress. Patient is resting comfortably on cart. Patient is not toxic, lethargic, or listless. Patient has notable expressive aphasia mild to moderate, alert and oriented ?3, GCS 15. Skin: Warm, dry, no pallor noted. There is no rash noted. No petechiae, purpura. Head: Normocephalic, atraumatic Eye: Normal conjunctiva, no drainage, EOMI. PERRL Ears, Nose, Mouth, and Throat: oral mucosa is moist. Nares patent. Mouth without vesicles. Cardiovascular: Regular Rate and Rhythm, no murmur, gallop, rub Respiratory: Patient is in no distress, no accessory muscle use, lungs are clear to auscultation, no wheezing, rales or rhonchi Back: non-tender, no CVA tenderness bilaterally to percussion. No CT LS midline pain GI: soft, obese, no tenderness to palpation, no masses appreciated. No rebound, guarding, or rigidity noted. No flank pain bilateral, No distention Musculoskeletal: Patient has full range of motion of all of the extremities, no motor, sensory, or focal neurological deficits That are new today. Patient has chronic decreased sensation to left arm and leg from previous. Neurological: A&O x3, normal speech Psychiatric: Cooperative Related Data Home Medications Medication Instructions Recorded Confirmed atorvastatin 40 mg tablet 40 mg PO .QD 04/01/23 10/08/23 candesartan 8 mg tablet 4 mg PO .QD 04/01/23 10/08/23 cetirizine 10 mg tablet 10 mg PO DAILY PRN allergy symptoms 04/01/23 10/08/23 cholecalciferol (vitamin D3) 50 50 mcg PO DAILY 04/01/23 10/08/23 mcg (2,000 unit) capsule (D3-2000) clonidine HCl 0.1 mg tablet 0.05 mg PO BID 04/01/23 10/08/23 furosemide 40 mg tablet 40 mg PO BID 04/01/23 10/08/23 montelukast 10 mg tablet 10 mg PO .QD 04/01/23 10/08/23 nifedipine 90 mg tablet,extended 90 mg PO .QD 04/01/23 10/08/23 release 24 hr oxybutynin chloride 10 mg 10 mg PO .QD 04/01/23 10/08/23 tablet,extended release 24 hr pantoprazole 40 mg tablet,delayed 40 mg PO .QD 04/01/23 10/08/23 release potassium chloride 20 mEq 20 meq PO .QD 04/01/23 10/08/23 tablet,extended release topiramate 50 mg tablet 100 mg PO Q12H 04/01/23 10/08/23 tramadol 50 mg tablet 100 mg PO Q12H PRN pain 04/01/23 10/08/23 warfarin 5 mg tablet 10 mg PO .QD 04/01/23 10/08/23 empagliflozin 10 mg tablet 10 mg PO QDAY 10/08/23 10/08/23 (Jardiance) indomethacin 50 mg capsule 50 mg PO BID 10/08/23 10/08/23 insulin degludec 100 unit/mL (3 56 unit subcut BID 10/08/23 10/08/23 mL) subcutaneous pen (Tresiba FlexTouch U-100 insulin) Allergies Allergy/AdvReac Type Severity Reaction Status Date / Time diazepam [From Valium] Allergy Verified 09/22/23 10:28 gabapentin [From Neurontin] Allergy Verified 09/22/23 10:28 BETA BLOCKERS Allergy Headache Uncoded 09/22/23 10:28 [facility] Medical History Acid reflux ?K21.9 - Gastro-esophageal reflux disease without esophagitis (ICD-10) Angina at rest ?I20.89 - Other forms of angina pectoris (ICD-10) CHF (congestive heart failure) ?I50.9 - Heart failure, unspecified (ICD-10) COPD (chronic obstructive pulmonary disease) ?J44.9 - Chronic obstructive pulmonary disease, unspecified (ICD-10) Emphysema lung ?J43.9 - Emphysema, unspecified (ICD-10) High cholesterol ?E78.00 - Pure hypercholesterolemia, unspecified (ICD-10) Implantable loop recorder present ?Z95.818 - Presence of other cardiac implants and grafts (ICD-10) Kidney failure ?N19 - Unspecified kidney failure (ICD-10) Palpitations ?R00.2 - Palpitations (ICD-10) Stroke ?I63.9 - Cerebral infarction, unspecified (ICD-10) Surgical History H/O arthroscopic knee surgery ?Z98.890 - Other specified postprocedural states (ICD-10) H/O inguinal hernia repair ?Z98.890 - Other specified postprocedural states (ICD-10) ?Z87.19 - Personal history of other diseases of the digestive system (ICD-10) History of Achilles tendon repair ?Z98.890 - Other specified postprocedural states (ICD-10) History of ankle surgery ?Z98.890 - Other specified postprocedural states (ICD-10) History of cardiac cath ?Z98.890 - Other specified postprocedural states (ICD-10) History of carpal tunnel release ?Z98.890 - Other specified postprocedural states (ICD-10) History of hydrocelectomy ?Z98.890 - Other specified postprocedural states (ICD-10) History of sinus surgery ?Z98.890 - Other specified postprocedural states (ICD-10) History of tonsillectomy ?Z90.89 - Acquired absence of other organs (ICD-10) Hx of cholecystectomy ?Z90.49 - Acquired absence of other specified parts of digestive tract (ICD- 10) Status post deep brain stimulator placement ?Z96.89 - Presence of other specified functional implants (ICD-10) Status post emergency tracheotomy for assistance in breathing ?Z93.0 - Tracheostomy status (ICD-10) Social History Smoking status: Never smoker Highest level of school completed/degree received: Bachelor's degree Exam Constitutional Vital Signs, click to edit/add: Last Vital Signs Temp 98.3 F 10/08/23 13:00 Pulse 62 10/08/23 14:40 Resp 14 10/08/23 14:40 BP 125/79 10/08/23 14:22 Pulse Ox 97 10/08/23 13:40 O2 Del Method Room Air 10/08/23 13:59 Course Vital Signs Vital signs: Vital Signs Blood Pressure 135/77 10/08/23 09:14 Temperature 98.3 F 10/08/23 13:00 Pulse Rate 62 10/08/23 14:40 Respiratory Rate 14 10/08/23 14:40 Blood Pressure 125/79 10/08/23 14:22 Pulse Oximetry 97 10/08/23 13:40 Oxygen Delivery Method Room Air 10/08/23 13:59 Medical Decision Making MDM Narrative Medical decision making narrative: CT brain showed no significant findings of acute stroke. CTA of the head and ne ck show no significant obstruction. Initially checking vision, patient had no obvious signs of all vision, blurred vision or vision changes. In the middle of patient's Emergency Room visit, one hand was covered over try and patient. I was only holding one finger up but was seen 2. With both eyes after this test, he stated at my one finger looked like to fingers as well. This is not there when I initially arrived, it has been intermittent. Patient labwork shows no significant findings. Patient's case was discussed with Dr. AMATO. When patient was examined clinic 2 weeks ago, he was there just to get the remote battery changed in fix for his brain stimulator. He was noted the patient developed thicker speech along with chest pain at that time. It is recommended the patient go to the Emergency Room at [facility] for evaluation and he did not. Patient's been having expressive aphasia for 2 weeks along vision changes, and intermittent headache, and dizziness. Patient labwork shows no significant findings. Patient does not want to be transferred back to [facility]. Dr. Amato is going to admit patient to the hospital for observation for speech therapy, physical therapy, occupational therapy, into the side of a possible rehab if needed. Patient are happy with these results. Patient did have a modified bedside swallow evaluation; See Jenn Bower RNscreen printer. Patient did have lunch with no difficulty or signs of aspiration. Lab Data Lab results reviewed: Yes I reviewed the patient's lab results Labs: Lab Results 10/08/23 10/08/23 10/08/23 Range/Units 11:01 11:02 12:06 WBC 8.1 (4.0-11.0) 10^3/uL RBC 4.85 (4.70-6.10) 10^6/uL Hgb 15.5 (14.0-18.0) g/dL Hct 46.2 (42.0-54.0) % MCV 95.3 H (80.0-94.0) fL MCH 32.0 (25.9-34.0) pg MCHC 33.5 (29.9-35.2) g/dL RDW 13.2 (11.0-15.0) % Plt Count 197 (150-450) 10^3/uL MPV 10.6 (9.5-13.5) fL Neut % (Auto) 59.7 (43.0-75.0) % Lymph % (Auto) 26.8 (20.5-60.0) % [place] % (Auto) 6.9 (1.7-12.0) % Eos % (Auto) 5.2 (0.9-7.0) % Baso % (Auto) 1.0 (0.2-2.0) % Neut # (Auto) 4.8 (1.4-6.5) 10^3/uL Lymph # (Auto) 2.2 (1.2-3.8) 10^3/uL [place] # (Auto) 0.6 (0.3-0.8) 10^3/uL Eos # (Auto) 0.4 (0.0-0.7) 10^3/uL Baso # (Auto) 0.1 (0.0-0.1) 10^3/uL Abs Immat Gran (auto) 0.03 (0.00-0.03) 10^3/uL Imm/Tot Granulo (auto) 0.4 (0.0-0.5) % PT 12.5 H (9.0-11.6) sec INR 1.19 APTT 30.4 (22.3-36.2) sec VBG pH 7.342 (7.330-7.430) VBG pCO2 43.9 (40.0-52.0) mmHg Sodium 143 (136-145) mmol/L Potassium 4.2 (3.5-5.1) mmol/L Chloride 111 H (98-107) mmol/L Carbon Dioxide 24.3 (21.0-32.0) mmol/L Anion Gap 11.9 BUN 25.0 H (7.0-18.0) mg/dL Creatinine 2.09 H (0.70-1.30) mg/dL Est GFR ( Amer) 39 L (>=60) Est GFR (Non-Af Amer) 32 L (>=60) BUN/Creatinine Ratio 12.0 Glucose 117 H (74-106) mg/dL Lactate (0.4-2.0) mmol/L Calcium 9.1 (8.5-10.1) mg/dL Magnesium (1.8-2.4) mg/dL Ammonia (11-32) umol/L Troponin I High Sens 55.4 (4.0-76.1) pg/mL NT-Pro-B Natriuret Pep (<=900.0) pg/mL TSH (0.358-3.740) uIU/mL Thyroxine (T4) (4.50-12.10) ug/dL Free T3 (2.18-3.98) pg/mL POC Glucose 71 L (74-106) mg/dL 10/08/23 Range/Units 13:13 WBC (4.0-11.0) 10^3/uL RBC (4.70-6.10) 10^6/uL Hgb (14.0-18.0) g/dL Hct (42.0-54.0) % MCV (80.0-94.0) fL MCH (25.9-34.0) pg MCHC (29.9-35.2) g/dL RDW (11.0-15.0) % Plt Count (150-450) 10^3/uL MPV (9.5-13.5) fL Neut % (Auto) (43.0-75.0) % Lymph % (Auto) (20.5-60.0) % [place] % (Auto) (1.7-12.0) % Eos % (Auto) (0.9-7.0) % Baso % (Auto) (0.2-2.0) % Neut # (Auto) (1.4-6.5) 10^3/uL Lymph # (Auto) (1.2-3.8) 10^3/uL [place] # (Auto) (0.3-0.8) 10^3/uL Eos # (Auto) (0.0-0.7) 10^3/uL Baso # (Auto) (0.0-0.1) 10^3/uL Abs Immat Gran (auto) (0.00-0.03) 10^3/uL Imm/Tot Granulo (auto) (0.0-0.5) % PT (9.0-11.6) sec INR APTT (22.3-36.2) sec VBG pH (7.330-7.430) VBG pCO2 (40.0-52.0) mmHg Sodium (136-145) mmol/L Potassium (3.5-5.1) mmol/L Chloride (98-107) mmol/L Carbon Dioxide (21.0-32.0) mmol/L Anion Gap BUN (7.0-18.0) mg/dL Creatinine (0.70-1.30) mg/dL Est GFR ( Amer) (>=60) Est GFR (Non-Af Amer) (>=60) BUN/Creatinine Ratio Glucose (74-106) mg/dL Lactate 1.0 (0.4-2.0) mmol/L Calcium (8.5-10.1) mg/dL Magnesium 2.3 (1.8-2.4) mg/dL Ammonia 15 (11-32) umol/L Troponin I High Sens 59.7 (4.0-76.1) pg/mL NT-Pro-B Natriuret Pep 103.0 (<=900.0) pg/mL TSH 0.778 (0.358-3.740) uIU/mL Thyroxine (T4) 6.20 (4.50-12.10) ug/dL Free T3 2.20 (2.18-3.98) pg/mL POC Glucose (74-106) mg/dL Imaging Data CT scan - head: Radiologist's impression: ITS Impressions Brain CT 10/08/23 10:56 IMPRESSION: No acute intracranial abnormality demonstrated. Results of no acute intracranial abnormality conveyed to Jc Cloud by Dr. Adams at 10/08/2023 8:33 AM PST. Electronically authenticated by: VIBHA ADAMS Date: 10/08/2023 11:34 Chest X-Ray 10/08/23 10:56 IMPRESSION: Low volume exam, clear lungs Electronically authenticated by: MARLON BOWERS Date: 10/08/2023 11:35 Head CTA 10/08/23 10:56 IMPRESSION: No significant stenosis, large vessel occlusion or aneurysm involving the neck or intracranial arterial vasculature. Electronically authenticated by: HUGH ARCOS Date: 10/08/2023 12:01 Neck CTA 10/08/23 10:56 IMPRESSION: No significant stenosis, large vessel occlusion or aneurysm involving the neck or intracranial arterial vasculature. Electronically authenticated by: HUGH ARCOS Date: 10/08/2023 12:01 ECG Data Attestation: I personally reviewed and interpreted this ECG as follows: (EKG interpretation. Significant artifact secondary to brain stimulator. QTC is being read as 437, rhythm noted to be 67 beats a minute. EKG reading first-degree AV block with a IL 302.) Discharge Plan Discharge Chief Complaint: Dizziness Clinical Impression: Vision changes, Expressive aphasia, CVA (cerebrovascular accident) Patient Disposition: Admitted As Inpatient Condition: Fair Discharge Date/Time: 10/08/23 13:47
[2023-10-08 11:15] LABS: pH VBG 7.342 (7.330-7.430)
[2023-10-08 11:16] LABS: PCO2 VBG 43.9 mmHg (40.0-52.0)
[2023-10-08] MEDS: 0.9 % SODIUM CHLORIDE 500 ML IV (11:27)
--- OUTSIDE RECORDS SUMMARY | 2023-10-08 11:28 | XMS_ITS | CCD ---
Author Name Unknown Address [address] [place] [address] Organization [facility] Care Team Providers Care Corn Shucker Name Role Phone Luis Mccormick MD Primary Care Provider [phone] Luis Mccormick MD Primary Care Provider [phone] Jonn GEORGE, Ahmed Unavailable Sanjay Dooley Unavailable JESUS RUSS Attending Unavailable JESUS RUSS Admitting Unavailable SELF, REFERRED Referring Unavailable LUIS MCCORMICK Primary Care Unavailable AMY REMY Surgeon Unavailable NC Procedure Practitioner Unavailab le NC Procedure Practitioner Unavailab DAVON Rivera Surgeon Unavailable DR LUIS REECE Admitting Unavailable ANNY Silva, DR SMITH Primary Care Unavailable DR LUIS REECE Consulting Unavailable DR LUIS REECE Attending Unavailable DR ROCK AVELAR Consulting Unavailable DARLENE VASQUEZ Attending Unavailable DARLENE VASQUEZ Admitting Unavailable DR LUIS REECE Primary Care Unavailable DARLENE VASQUEZ Consulting Unavailable SHAIKH Brenda DEWEY Attending Unavailable JODIE HURST Primary Care Unavailable SHAIKH DEWEY H Admitting Unavailable SOFYA SMART Attending Unavailable SOFYA SMART Admitting Unavailable DR LUIS REECE Primary Care Unavailable ALISA HOLMAN Consulting Unavailable SOFYA SMART Consulting Unavailable LOS BAIRES Consulting Unavailable BERRY, SOFYA Admitting Unavailable DR LUIS REECE Primary Care Unavailable DR ROCK AVELAR Consulting Unavailable SOFYA SMART Attending Unavailable SOFYA SMART Consulting Unavailable FAWWAD, CARMICHAEL H Attending Unavailable FAWWAD, CARMICHAEL H Admitting Unavailable HOY ., DR SMITH Primary Care Unavailable ARIS, JODIE Admitting Unavailable ARIS, JODIE Primary Care Unavailable ARIS, JODIE Attending Unavailable FAWWAD, CARMICHAEL H Admitting Unavailable HOY ., DR SMITH Primary Care Unavailable FAWWAD, CARMICHAEL H Attending Unavailable FAWWAD, CARMICHAEL H Admitting Unavailable HOY ., DR SMITH Primary Care Unavailable FAWWAD, CARMICHAEL H Attending Unavailable HOY ., DR SMITH Primary Care Unavailable FAWWAD, CARIMCHAEL H Admitting Unavailable FAWWAD, CARMICHAEL H Attending Unavailable HOY ., DR SMITH Primary Care Unavailable FAWWAD, CARMICHAEL H Admitting Unavailable FAWWAD, CARMICHAEL H Attending Unavailable FAWWAD, CARMICHAEL H Attending Unavailable FAWWAD, CARMICHAEL H Admitting Unavailable HOY ., DR SMITH Primary Care Unavailable FAWWAD, CARMICHAEL H Attending Unavailable FAWWAD, CARMICHAEL H Admitting Unavailable HOY ., DR SMITH Primary Care Unavailable HOY ., DR SMITH Primary Care Unavailable FAWWAD, CARMICHAEL H Admitting Unavailable FAWWAD, CARMICHAEL H Attending Unavailable FAWWAD, CARMICHAEL H Attending Unavailable HOY ., DR SMITH Primary Care Unavailable FAWWAD, CARMICHAEL H Admitting Unavailable LEMUEL RODRIGUEZ Attending Unavailable LEMUEL RODRIGUEZ Admitting Unavailable HOY ., DR SMITH Primary Care Unavailable LEMUEL RODRIGUEZ Consulting Unavailable FAWWAD, CARMICHAEL H Attending Unavailable FAWWAD, CARMICHAEL H Admitting Unavailable HOY ., DR SMITH Primary Care Unavailable DR ROCK AVELAR Consulting Unavailable ARIS, JODIE Admitting Unavailable ARIS, JODIE Primary Care Unavailable ARIS JODIE Attending Unavailable ARIS, JODIE Consulting Unavailable SURI BANDA Attending Unavailable SURI BANDA Admitting Unavailable ARIS, JODIE Primary Care Unavailable SURI BANDA Consulting Unavailable Luis Mccormick MD Primary Care Provider Jonn GEORGE, Saúl med Unavailable [phone] Marlena GEORGE, Ramon Morales Attending Unavailable SURI BANDA Attending Unavailable SOFYA SMART Attending Unavailable DEEPA DOYLE Referring Unavailable LEMUEL RODRIGUEZ Admitting Unavailable LEMUEL RODRIGUEZ Attending Unavailable SURI BANDA Attending Unavailable SURI BANDA Attending Unavailable SURI BANDA Attending Unavailable LUIS MCCORMICK Primary Care Unavailable SHANE PARHAM Referring Unavailable LUIS MCCORMICK Primary Care Unavailable SHANE PARHAM Attending Unavailable Allergies Allergy Classification Reported Allergen(s) Allergy Type Date of Onset Reaction(s) Facility (8 sources) beta-Blocking agent; Translations: [BETA-BLOCKERS (BETA-ADRENERGI C BLOCKING AGTS)] Drug Allergy 1 Itching, Other: See Comments [facility] (13 sources) diazePAM; Translations: [DIAZEPAM] Drug Allergy 8 Unknown [facility] (13 sources) gabapentin; Translations: [GABAPENTIN] Drug Allergy 9 Other: See Comments, Unknown [facility] (10 sources) hydrALAZINE; Translations: [HYDRALAZINE] Drug Allergy 3 Unknown [facility] (3 sources) Adrenergic Beta-Antagonist s Drug allergy Unknown appiris Other (2 sources) Adrenergic Beta-Antagonist s Drug allergy (disorder) 6 [facility] (2 sources) diazePAM Drug Allergy 6 [facility] (1 source) gabapentin Drug Allergy 9 [facility] (1 source) gabapentin Drug Allergy [address] [facility] (2 sources) beta-Blocking agent Drug Allergy 1 Itching, Other: See Comments [facility] Medications Current Medications Medication Drug Class(es) Dates Sig (Normalized) Sig (Original) amLODIPine 5 mg oral tablet (2 sources) Dihydropyridine Calcium Channel Neema End: 01-21-2022 take 1 tablet by mouth once daily amLODIPine (NORVASC) 5 mg tablet Take 5 mg by mouth once daily. 0 01/21/2022 Discontinued Comment on above: Take 5 mg by mouth o nce daily. aspirin 81 mg oral tablet (3 sources) Platelet Aggregation Inhibitor, Nonsteroidal Anti-inflammatory Drug take 1 tablet by mouth once daily Aspirin 81 81 MG 1 tablet Orally Once a day Active LEVEMIR FLEXTOUCH 100 UNIT/ ML (3 sources) LEVEMIR FLEXTOUC H 100 UNIT/ ML as directed Subcutaneous 35 UNITS TWICE A DAY Active mupirocin 0.02 mg/mg topical ointment (1 source) RNA Synthetase Inhibitor Antibacterial Start: 01-25-2022 End: 01-30-2022 apply 22 g nasal route three times daily mupirocin (BACTROBAN) 2 % ointment Apply to affected area three times daily for 5 days. Apply to each nostril via Q-tip 22 g 0 01/25/2022 01/30/2022 Active Comment on above: Apply to affected ar ea three times daily for 5 days. Apply to each nostril via Q-tip spironolactone 100 mg oral tablet (2 sources) Aldosterone Antagonist End: 01-21-2022 take 1 tablet by mouth once daily spironolactone (ALDACTONE) 100 mg tablet spironolactone 100 mg tablet take 1 tablet by mouth once daily for 4 days 0 01/21/2022 Discontinued Comment on above: spironolactone 100 m g tablet take 1 tablet by mouth once daily for 4 days Completed/Discontinued Medications Medication Drug Class(es) Dates Sig (Normalized) Sig (Original) acetaminophen 325 mg / HYDROcodone bitartrate 5 mg oral tablet (2 sources) Opioid Agonist Start: 01-30-2022 take 1 tablet by mouth every eight hours as needed for pain HYDROcodone-aceta minophen (NORCO) 5-325 mg per tablet Indications: Post-op pain Take 1 tablet by mouth every 8 hours as needed for pain. 9 tablet 0 01/30/2022 Active Comment on above: Take 1 tablet by kristen every 8 hours as needed for pain. [id number] 200 actuat albuterol 0.09 mg/actuat metered dose inhaler (11 sources) beta2-Adrenergic Agonist albuterol HFA (PROVENTIL HFA, VENTOLIN HFA) 90 mcg/actuation inhaler albuterol sulfate HFA 90 mcg/actuation aerosol inhaler 0 Active take 2 puff(s) by in halation every four hours as needed Albuterol Sulfate HFA 108 (90 Base) MCG/ACT 2puff as needed Inhalation every 4 hrs Active take 2 puff(s) by in halation every four hours as needed Albuterol Sulfate HFA 108 (90 Base) MCG/ACT 2puff as needed Inhalation every 4 hrs Active Comment on above: albuterol sulfate HF A 90 mcg/actuation aerosol inhaler ALOE VERA ORAL (8 sources) ALOE VERA ORAL T zee by mouth. 0 Active Comment on above: Take by mouth. atorvastatin 10 mg oral tablet (11 sources) HMG-CoA Reductase Inhibitor Start: 11-08-19 20 take 1 tablet by mouth once daily atorvastatin (LIPITOR) 10 mg tablet Take 1 tablet by mouth once daily. 90 tablet 1 11/08/2019 Active take 1 tablet by kristen th every twenty-four hours Atorvastatin Calcium 40 MG 1 tablet Oral ly Once a day Active Comment on above: Take 1 tablet by kristen once daily. candesartan cilexetil 8 mg oral tablet (11 sources) Angiotensin 2 Receptor Neema take 1 tablet by mouth once daily candesartan (ATACAND) 8 mg tablet Take 8 mg by mouth once daily. 0 Active Comment on above: Take 8 mg by mouth o nce daily. carbidopa 10 mg / levodopa 100 mg oral tablet (6 sources) Aromatic Amino Acid Decarboxylation Inhibitor, Aromatic Amino Acid carbidopa-levodopa (SINEMET 10-100) 10-100 mg per tablet carbidopa 10 mg-levodopa 100 mg tablet 0 Active Comment on above: carbidopa 10 mg-levo dopa 100 mg tablet cephalexin 500 mg oral capsule (2 sources) Cephalosporin Antibacterial Start: 01-31-20 22 take 1 capsule by mouth four times daily cephALEXin (KEFLEX) 500 mg capsule Take 1 capsule by mouth four times daily. 8 capsule 0 01/30/2022 Active Comment on above: Take 1 capsule by mo [facility] four times daily. cetirizine hydrochloride 10 mg oral tablet (3 sources) Histamine-1 Receptor Antagonist take 1 tablet by mouth every twenty-four hours Cetirizine HCl 10 MG 1 tablet Orally Once a day Not-Taking cloNIDine hydrochloride 0.2 mg oral tablet (11 sources) Central alpha-2 Adrenergic Agonist take 1 tablet by mouth twice daily, then take 0.2 tablet by mouth in the morning, then take 0.1 tablet by mouth in the evening cloNIDine 0.2 mg tablet Take 0.2 mg by mouth twice daily. 0.2 in AM, 0.1 in PM 0 Active take 1 tablet by mouth every eig ht hours cloNIDine HCl 0.2 MG 1 tablet Orally THREE TIMES A DAY Active Comment on above: Take 0.2 mg by mouth twice daily. Take 0.2 mg by mouth twice daily. 0.2 in AM, 0.1 in PM furosemide 40 mg oral tablet (11 sources) Loop Diuretic Start: 020 take 1 tablet by mouth twice daily furosemide (LASIX) 40 mg tablet Take 1 tablet by mouth twice daily. 0 11/08/2019 Active Comment on above: Take 1 tablet by kristen th twice daily. hyoscyamine sulfate 0.125 mg sublingual tablet (3 sources) take 1 tablet under the tongue four times daily as needed Hyoscyamine Sulfate SL 0.125 MG 1 tablet under the tongue and allow to dissolve as needed Sublingual FOUR TIMES A DAY PRN Not-Taking indomethacin 50 mg oral capsule (6 sources) Nonsteroidal Anti-inflammatory Drug take 1 capsule by mouth three times daily for pain indomethacin (INDOCIN) 50 mg capsule indomethacin 50 mg capsule take 1 capsule by mouth three times a day if needed for pain 0 Active Comment on above: indomethacin 50 mg c apsule take 1 capsule by mouth three times a day if needed for pain 3 ml insulin detemir 100 unt/ml pen injector (8 sources) Insulin Analog insulin detemir U-100 (LEVEMIR FLEXTOUCH U-100 INSULIN) 100 unit/mL (3 mL) injection pen Inject 56 Units subcutaneously every morning. 0 Active Comment on above: Inject 56 Units subc utaneously every morning. meclizine hydrochloride 25 mg oral tablet (3 sources) Antiemetic take 1 tablet by mouth every four hours as needed Meclizine HCl 25 MG 1 tablet as needed Orally EVERY 4 HOURS PRN Not-Taking montelukast 10 mg oral tablet (11 sources) Leukotriene Receptor Antagonist take 1 tablet by mouth once daily at bedtime montelukast (SINGULAIR) 10 mg tablet Take 10 mg by mouth daily at bedtime. 0 Active Comment on above: Take 10 mg by mouth daily at bedtime. NIFEdipine 90 mg osmotic 24 hr extended release oral tablet (11 sources) Dihydropyridine Calcium Channel Neema take 1 tablet by mouth once daily NIFEdipine ER (PROCARDIA XL) 90 mg 24 hr tablet nifedipine ER 90 mg tablet,extended release 24 hr take 1 tablet by mouth once daily 0 Active take 1 tablet by kristen th every twenty-four hours NIFEdipine ER 90 MG 1 tablet on an empty stomach Orally Once a day Active Comment on above: nifedipine ER 90 mg tablet,extended release 24 hr take 1 tablet by mouth once daily 24 hr oxybutynin chloride 10 mg extended release oral tablet (11 sources) Cholinergic Muscarinic Antagonist take 1 tablet by mouth once daily oxybutynin ER (DITROPAN XL) 10 mg 24 hr tablet Take 10 mg by mouth once daily. 0 Active Comment on above: Take 10 mg by mouth once daily. pantoprazole 40 mg delayed release oral tablet (11 sources) Proton Pump Inhibitor take 1 tablet by mouth once daily pantoprazole DR (PROTONIX) 40 mg tablet Take 40 mg by mouth once daily. 0 Active Comment on above: Take 40 mg by mouth once daily. microencapsulated potassium chloride 20 meq extended release oral tablet (11 sources) Start: 020 take 1 tablet by mouth once daily potassium chloride ER (KLOR-CON M20) 20 mEq tablet Take 1 tablet by mouth once daily. 0 11/08/2019 Active take 1 tablet by kristen th every twelve hours Potassium Chloride ER 20 MEQ 1 tablet wi th food Orally Twice a day Active Comment on above: Take 1 tablet by kristen th once daily. tiotropium 0.018 mg inhalation powder (11 sources) Anticholinergic tiotropium (SPIR JOANN WITH HANDIHALER) 18 mcg inhalation capsule Spiriva with HandiHaler 18 mcg and inhalation capsules 0 Active take 1 capsule by inhalation onc e daily Spiriva HandiHaler 18 MCG 1 capsule by inhaling the contents of the capsule using the HandiHaler device Inhalation Once a day Active Comment on above: Spiriva with HandiHa ler 18 mcg and inhalation capsules topiramate 50 mg oral tablet (11 sources) take 2 tablets by mouth twice daily topiramate (TOPAMAX) 50 mg tablet Take 100 mg by mouth twice daily. 0 Active Comment on above: Take 100 mg by mouth twice daily. traMADol hydrochloride 50 mg oral tablet (11 sources) Opioid Agonist take 2 tablets by mouth twice daily traMADol (ULTRAM) 50 mg tablet tramadol 50 mg tablet take 2 tablets by mouth twice a day 0 Active Comment on above: tramadol 50 mg table t take 2 tablets by mouth twice a day 7 actuat umeclidinium 0.0625 mg/actuat dry powder inhaler (6 sources) Anticholinergic take 1 puff(s) by inhalation once daily umeclidinium (INCRUSE ELLIPTA) 62.5 mcg/actuation inhaler Inhale 1 Puff as instructed once daily. 0 Active Comment on above: Inhale 1 Puff as ins tructed once daily. warfarin sodium 10 mg oral tablet (17 sources) Vitamin K Antagonist Start: 019 warfarin (COUMADIN) 10 mg tablet Take 1 tablet by mouth every 48 hours. Take 7.5mg one day, then 10mg the other day 0 10/20/2018 Active Start: 10-19-2018 warfarin (COUM ENZO) 7.5 mg tablet Take 1 tablet by mouth every 48 hours. Take 7.5mg one day, then 10mg the other day 0 10/19/2018 Active take 2 tablets by mo ut once daily Warfarin 5mg 5 mg 2 TABLETS orally ONCE A DAY Active Comment on above: Take 1 tablet by kristen every 48 hours. Take 7.5mg one day, then 10mg the other day Problems Active Problems Problem Classification Problem Date Documented Da te Episodic/Chronic Abdominal pain (4 sources) Unspecified abdominal pain; Translations: [UNSPECIFIED ABDOMINAL PAIN] Onset: 3 Episodic Acute cerebrovascular disease (2 sources) Cerebral infarction due to embolism of unspecified cerebral artery; Translations: [Cerebral infarction due to embolism of unspecified cerebral artery] Onset: 3 Chronic Chronic kidney disease (8 sources) Chronic kidney disease stage 3; Translations: [Stage 3 chronic kidney disease, unspecified whether stage 3a or 3b CKD (HCC)] Onset: 2 Chronic Chronic kidney disease (5 sources) Chronic kidney disease; Translations: [Chronic kidney disease, stage 3 unspecified] Onset: 2 Resolved: 2 Chronic obstructive pulmonary disease and bronchiectasis (8 sources) Chronic obstructive lung disease; Translations: [Chronic obstructive pulmonary disease, unspecified] Onset: 2 Chronic Congestive heart failure; nonhypertensive (16 sources) Congestive heart failure; Translations: [Heart failure, unspecified] Onset: 2 Chronic Coronary atherosclerosis and other heart disease (2 sources) Angina pectoris, unspecified; Translations: [Angina pectoris, unspecified] Onset: 3 Chronic Diabetes mellitus with complications (5 sources) Type 2 diabetes mellitus; Translations: [Type 2 diabetes mellitus with other specified complication] Onset: 2 Resolved: 2 Chronic Diabetes mellitus without complication (8 sources) Diabetes mellitus; Translations: [Type 2 diabetes mellitus without complications] 11-25-2008 Chronic Disorders of lipid metabolism (4 sources) Pure hypercholesterolemia; Translations: [Pure hypercholesterolemia, unspecified] Onset: 2 Resolved: 2 Chronic Esophageal disorders (9 sources) Gastroesophageal reflux disease; Translations: [Gastro-esophageal reflux disease without esophagitis] 11-25-2008 Chronic Essential hypertension (13 sources) Essential hypertension; Translations: [Essential (primary) hypertension] Onset: 2 Resolved: 2 07-18-2016 Chronic Hypertension with complications and secondary hypertension (4 sources) Hypertensive chronic kidney disease with stage 1 through stage 4 chronic kidney disease, or unspecified chronic kidney disease; Translations: [HTN CKD W/STAGE 1-4 CKD/UNS CKD] Onset: 2 Chronic Immunizations and screening for infectious disease (1 source) 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; Translations: [Carrier or suspected carrier of Methicillin resistant Staphylococcus aureus] Episodic Malaise and fatigue (2 sources) Other fatigue; Translations: [Weakness] Onset: 3 Episodic Mood disorders (8 sources) Recurrent major depression in partial remission; Translations: [Major depressive disorder, recurrent, in partial remission] Onset: 0 11-16-2019 Chronic Other aftercare (5 sources) Encounter for therapeutic drug level monitoring; Translations: [ENC THERAPEUTC DRUG LEVL MONITORING] Onset: 3 Episodic Other aftercare (1 source) intermodal customer service (current) use of anticoagulants; Translations: [NUCLEAR STATION OPERATOR CURRNT USE ANTICOAGULANTS] Onset: 3 Episodic Other and ill-defined cerebrovascular disease (9 sources) Cerebrovascular disease; Translations: [Other cerebrovascular disease] 11-25-2008 Chronic Other hereditary and degenerative nervous system conditions (8 sources) Shuddering attacks; Translations: [Benign shuddering attacks] 11-25-2008 Chronic Other hereditary and degenerative nervous system conditions (3 sources) Essential tremor; Translations: [Essential tremor] Chronic Other nutritional; endocrine; and metabolic disorders (9 sources) Body mass index 40+ - severely obese; Translations: [Morbid (severe) obesity due to excess calories] Onset: 9 10-09-2018 Chronic Other upper respiratory disease (8 sources) Other diseases of pharynx; Translations: [Other diseases of pharynx, not elsewhere classified] 11-25-2008 Episodic Parkinson`s disease (7 sources) Parkinson's disease; Translations: [Parkinson's disease] Onset: 2 01-21-2022 Chronic Phlebitis; thrombophlebitis and thromboembolism (8 sources) 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; Translations: [Chronic embolism and thrombosis of unspecified deep veins of proximal lower extremity, bilateral] Onset: 8 08-06-2018 Chronic Phlebitis; thrombophlebitis and thromboembolism (5 sources) Acute embolism and thrombosis of unspecified deep veins of left lower extremity; Translations: [AC EMBO THROMB UNS DP VNS LT LW EXT] Onset: 3 Episodic Residual codes; unclassified (8 sources) Obstructive sleep apnea syndrome; Translations: [Obstructive sleep apnea (adult) (pediatric)] Onset: 2 Chronic Spondylosis; intervertebral disc disorders; other back problems (9 sources) Low back pain; Translations: [Lumbago] Onset: 2 11-25-2008 Episodic Unclassified (1 source) LOW BACK PAIN, UNSPECIFIED; Translations: [LOW BACK PAIN, UNSPECIFIED] Onset: 3 Unclassified (1 source) CONTACT W/AND (SUSP) EXPOS COVID-19; Translations: [CONTACT W/AND (SUSP) EXPOS COVID-19] Onset: 2 Unclassified (1 source) CHRN KIDNEY DISEASE STG 3 UNSP; Translations: [CHRN KIDNEY DISEASE STG 3 UNSP] Onset: 2 Unclassified (2 sources) Wound Check; Translations: [Wound Check] Onset: 3 Past or Other Problems Problem Classification Problem Date Documented Da te Episodic/Chronic Fluid and electrolyte disorders (8 sources) Hypervolemia; Translations: [Fluid overload, unspecified] Onset: 10-08-2018 10-08-2018 Episodic Nonspecific chest pain (1 source) Chest pain, unspecified; Translations: [CHEST PAIN UNSPECIFIED] Onset: 05-27-2022 Episodic Other circulatory disease (4 sources) Personal history of transient ischemic attack (TIA), and cerebral infarction without residual deficits; Translations: [PERS HX TIA AND CI NO RESID DEFICIT] Onset: 05-29-2022 Episodic Other lower respiratory disease (4 sources) Other forms of dyspnea; Translations: [OTHER FORMS OF DYSPNEA] Onset: 06-24-2022 Episodic Other lower respiratory disease (1 source) Dyspnea, unspecified; Translations: [DYSPNEA UNSPECIFIED] Onset: 05-27-2022 Episodic Other nervous system disorders (8 sources) Tremor; Translations: [Tremor, unspecified] Onset: 07-24-2011 07-24-2011 Episodic Other upper respiratory disease (9 sources) Stenosis of trachea; Translations: [Other specified diseases of upper respiratory tract] Onset: 05-13-2014 05-13-2014 Episodic Pulmonary heart disease (10 sources) Infarction of lung due to embolus; Translations: [Other pulmonary embolism without acute cor pulmonale] Onset: 08-06-2018 08-06-2018 Episodic Residual codes; unclassified (8 sources) Difficult venous access; Translations: [Other specified health status] Onset: 01-21-2022 Episodic Residual codes; unclassified (8 sources) Tobacco use and exposure - finding; Translations: [Tobacco use] Onset: 01-21-2022 Episodic Syncope (2 sources) Syncope and collapse; Translations: [Syncope and collapse] Onset: 01-07-2023 Episodic Results Test Name Value Interpretation Reference Range Facility ACETYLCHO R MOD ABon 12-15-2 023 ACETYLCHOLINE RECEPT/MODULATING 3 % Normal <=[address] [facility] Comment on above: Order Comment: Speci men Type: BLOOD SPECIMEN Ordering Facility: [facility] Address: [address] [place] [id number] Result Comment: INTE RPRETIVE INFORMATION: Acetylcholine Modulating Ab Negative .......... 0-45 percent modulating Positive .......... 46 percent or greater modulating Approximately 85-90 percent of patients with myasthenia gravis (MG) express antibodies to the acetylcholine receptor (AChR), which can be divided into binding, blocking, and modulating antibodies. Binding antibody can activate complement and lead to loss of AChR. Blocking antibody may impair binding of acetylcholine to the receptor, leading to poor muscle contraction. Modulating antibody causes receptor endocytosis resulting in loss of AChR expression, which correlates most closely with clinical severity of disease. Approximately 10-15 percent of individuals with confirmed myasthenia gravis have no measurable binding, blocking, or modulating antibodies. This test was developed and its performance characteristics determined by [employer]. It has not been cleared or approved by the [place] Food and Drug Administration. This test was performed in a CLIA certified laboratory and is intended for clinical purposes. Performed By: [facility] [address] [place] [address] [employer]: Uriah Prasad MD, PhD CLIA Number: [id number] Performed By: #### A CEMOD #### [facility] CLIA [id number] [address] [place] [address] ACETYLCHOLINE REC BINDING AB on 09-19-2023 ACETYLCHOLINE BINDING, QUAL Negative Normal Negative [facility] Comment on above: Order Comment: Sherry hu Type: BLOOD SPECIMEN Ordering Facility: [facility] Address: [address] [place] [address] Result Comment: Anti -acetylcholine receptor binding antibody test is used as an aid in diagnosis of myasthenia gravis. A negative result cannot exclude myasthenia gravis. Clinical correlation is required. Performed By: #### A CHRAB #### [facility] CLIA [id number] [address] [place] [address] [place] Acetylcholine receptor binding Ab (S) [Moles/Vol] <0.02 Normal <0.[address] [facility] Comment on above: Order Comment: Sherry hu Type: BLOOD SPECIMEN Ordering Facility: [facility] Address: [address] [place] [address] Performed By: #### A CHRAB #### [facility] CLIA [id number] [place] [address] [place] ACETYLCHOLINE REC BLOCKING A Bon 09-19-2023 ACETYLCHOLINE BLOCKING, QUAL Negative Normal Negative [facility] Comment on above: Order Comment: Sherry hu Type: BLOOD SPECIMEN Ordering Facility: [facility] Address: [address] [place] [address] Result Comment: Anti -acetylcholine receptor blocking antibody test is used as an aid in diagnosis of myasthenia gravis. A negative result cannot exclude myasthenia gravis. Clinical correlation is required. Performed By: #### A CEBAB #### [facility] CLIA [id number] [address] [place] [address] STATES OF [facility] Acetylcholine receptor blocking Ab/Acetylcholine Ab.total (S) [Molar fraction] <13 Normal <[address] [facility] Comment on above: Order Comment: Speci men Type: BLOOD SPECIMEN Ordering Facility: [facility] Address: [address] [place] [address] Performed By: #### A CEBAB #### [facility] [place] [id number] [address] [place] [address] OF [place] CNOVon 09-19-2023 CNOV Office Visit (NREUS2 ) ANDRY PIERRE ([id number]) 1960 M Date Time Provider Department 09/19/23 11:00 AM SHANE PARHAM NREUS2 During your visit today, we recorded the following information about you: Pulse Blood pressure 82/minute 133/69 Shane Parham PA-C 09/19/2023 4:39 PM Signed [facility] - FOLLOW UP EVALUATION Luis Mccormick MD [address] [facility] [address] Dear Luis Mccormick MD: I had the pleasure of seeing Mr. Pierre for follow-up today. As you know he is a 62 year old ambidextrous male with a history of since . Subjective Interval History: Santos is here for DBS follow up. He recently went to check the DBS and it was found that the pt controller was not working. He was also having increased tremor. He has a new controller now but his tremors persist. He has made no changes in the DBS Over the past week he has noticed some speech changes. He has some difficulty speaking, some stuttering, but denies word finding issues. He did not seek care in a local ED as he does not like them. he has some burning chest pain that does not radiate, a feeling of occasional SOB. He has long standing neuropathy in the feet and lower legs, some subjective weakness in the legs as he states he has difficulty with stairs. several weeks ago he had a heart loop monitor implanted at an OSH. It is next to if not over the DBS IPG. Movement Disorders Medications Schedule - as of the start of the visit: Medications Questionnaires: In addition, the following areas that may be affected by abnormal involuntary movements were evaluated: Daily activities Difficulties with eating: Yes (moderate) Difficulties in dressing: Yes (mild) Difficulties with hygiene activities: Yes (slight) Difficulties with handwriting: Yes (severe) Difficulties with doing hobbies and other activities: Difficulties turning in bed: Yes (slight) Difficulties getting out of bed, car or chair: Yes (moderate) Tremors/Gait/Balance Shaking or tremors: Yes (severe) Walking and balance problems: Yes (moderate) Number of falls in the Last Month: 5 Gait freezing: Yes (moderate) Autonomic/Pain Lightheadeness on standing: Yes (severe) Urinary problems: Yes (mild) Constipation problems: 0 (none) Pain and other sensations: Yes (severe) Speech/Swallowing Speech problems: Yes (moderate) Droolin (none) Chewing and swallowing problems: Yes (moderate) Sleep/Fatigue Sleep problems: Yes (moderate) Daytime sleepiness: Yes (moderate) Fatigue: Yes (severe) Mood/Behavior Depression: PHQ-9 Score: 21 usually representing severe (20-27) depression. Anxiety: LEEROY-7 Total Score: 6 usually representing mild (5-9) anxiety. Finally, the following table shows the patient's overall global physical and mental health using the PROMIS scale: PROMIS-10 Flowsheet Row Office Visit from 09/19/2023 in [facility] PAT from 01/21/2022 in Pre Anesthesia Global Physical Health T Score 26.7 42.3 Global Mental Health T Score -- 56 0-10 Standard Pain Scale 2 3 *PROMIS-10 scoring scale: mean = 50, over 50 is above average, under 50 is below average In addition, the following Parkinson Lifestyle-associated features were evaluated: Conditions Prior to Dx: Depression: Yes Anxiety: No Melanoma: No Constipation: Yes Yelling: Yes Head Trauma: Yes Habits/exposures Prior to Dx Smoking: No Caffeinated coffee (1-cup+): No Caffeinated soda/tea (2 cups+): No Alcohol (1 bottle/shot/glass+): No Exercise (3x/wk+): Yes (but quit) Ibuprofen use (1x/wk+): Yes (but quit) Pesticides: No Welding: Yes (but quit) ALLERGIES Allergen Reactions Beta Blockers [Beta* Itching, Other: See Comments Hydralazine Unknown Headache, nausea, sick Neurontin [Gabapent* Other: See Comments, Unknown Unknown Valium [Diazepam] Unknown Was on the ground after took it Current Outpatient Medications Medication Sig Insulin Wickett, Disposable, (BD INSULIN PEN NEEDLE UF) 29 gauge x 1/2 Use as directed sq bid cetirizine (ZYRTEC) 10 mg tablet Take 1 tablet by mouth once daily. metFORMIN (GLUCOPHAGE) 500 mg tablet Take 1 tablet by mouth two times a day. candesartan (ATACAND) 8 mg tablet Take 8 mg by mouth once daily. albuterol HFA (PROVENTIL HFA, VENTOLIN HFA) 90 mcg/actuation inhaler albuterol sulfate HFA 90 mcg/actuation aerosol inhaler NIFEdipine ER (PROCARDIA XL) 90 mg 24 hr tablet nifedipine ER 90 mg tablet,extended release 24 hr take 1 tablet by mouth once daily furosemide (LASIX) 40 mg tablet Take 1 tablet by mouth twice daily. atorvastatin (LIPITOR) 10 mg tablet Take 1 tablet by mouth once daily. oxybutynin ER (DITROPAN XL) 10 mg 24 hr tablet Take 10 mg by mouth once daily. pantoprazole DR (PROTONIX) 40 mg tablet Take 40 mg by mouth once daily. warfarin (COUMADIN) 10 mg tablet Take 1 tab (more content not included)... Normal [facility] José Antonio 09-12-2023 [facility] Telephone (NREUS2) ANDRY PIERRE ([id number]) 1960 M Date Time Provider Department 09/12/23 SHANE PARHAM NREUS2 During your visit today, we recorded the following information about you: Ry Corea Sae 09/12/2023 10:46 AM Signed NI PHONE Name of caller : self Patient identified by Name and Date of . ( Andry Pierre, 1960). Yes Reason for Call : Patient with DBS says his controller has a triangle with an exclamation point on it. He says he is shaking very badly. He c/o being light headed and falling. He saw local neurologist who tried to have it checked but they said he needs to have it checked by [facility]. He says he started getting shaky about 2 months ago and it's getting worse. He says he also has a loop monitor implanted in January. Note: His info has changed (address, phone, etc.) and was transferred to update his registration. Number to return call Okay to leave a message ? Last office visit 01/21/22 with Rhianna Lam 09/12/2023 2:44 PM Signed Mr. Pierre phoned again - reports that he needs to speak with someone prior to the weekend. Shane Parham PA-C 09/12/2023 4:55 PM Signed spoke with pt today and he is getting a warning on his device that may indicate EOS but may be a connection failure. The connector may be faulty. He has a heart monitor near the IPG and that be a factor. I will have a [employer] specialist reach out to him. Sadie Hawkins 09/15/2023 10:25 AM Signed Pt called to report he spoke with [employer] rep who determined remote was bad-pt received remote overnight. Pt still shaking (2 months) and stuttering for for 2 months, dizzy and can hardly walk - [phone]. Darlene Bhatia 09/16/2023 4:24 PM Signed Patient calling to say that he had a loop monitor put in right over top of his DBS generator in January. The symptoms started after this procedure. He says he gets daily headaches and that he follows up with the cardiac team and they say that there isn't anything wrong. He wants to know if he should see surgery or neurology. Darlene Bhatia 09/16/2023 4:41 PM Signed Patient scheduled 09/19 at 11 am. Allergies As of Date: 09/12/2023 Noted Allergy Reaction BETA BLOCKERS (BETA-BLOCKERS (BET*07/24/2011 9 - Itching 14 - Other: See Comments HYDRALAZINE 05/19/2013 16 - Unknown Comments: Headache, nausea, sick NEURONTIN (GABAPENTIN) 11/25/2008 14 - Other: See Comments 16 - Unknown Comments: Unknown VALIUM (DIAZEPAM) 03/03/2008 16 - Unknown Comments: Was on the ground after took it Date Reviewed: 01/30/2022 Reviewed by: Virginia Swann RN - Fully Assessed Reason for Visit: DBS problem [Other] Prescriptions as of 09/16/2023 - cephALEXin (KEFLEX) 500 mg capsule Take 1 capsule by mouth four times daily. - HYDROcodone-acetaminophen (NORCO) 5-325 mg per tablet Take 1 tablet by mouth every 8 hours as needed for pain. - ALOE VERA ORAL Take by mouth. - candesartan (ATACAND) 8 mg tablet Take 8 mg by mouth once daily. - albuterol HFA (PROVENTIL HFA, VENTOLIN HFA) 90 mcg/actuation inhaler albuterol sulfate HFA 90 mcg/actuation aerosol inhaler - NIFEdipine ER (PROCARDIA XL) 90 mg 24 hr tablet nifedipine ER 90 mg tablet,extended release 24 hr take 1 tablet by mouth once daily - tiotropium (SPIRIVA WITH HANDIHALER) 18 mcg inhalation capsule Spiriva with HandiHaler 18 mcg and inhalation capsules - traMADol (ULTRAM) 50 mg tablet tramadol 50 mg tablet take 2 tablets by mouth twice a day - furosemide (LASIX) 40 mg tablet Take 1 tablet by mouth twice daily. - atorvastatin (LIPITOR) 10 mg tablet Take 1 tablet by mouth once daily. - potassium chloride ER (KLOR-CON M20) 20 mEq tablet Take 1 tablet by mouth once daily. - insulin detemir U-100 (LEVEMIR FLEXTOUCH U-100 INSULIN) 100 unit/mL (3 mL) injection pen Inject 56 Units subcutaneously every morning. - oxybutynin ER (DITROPAN XL) 10 mg 24 hr tablet Take 10 mg by mouth once daily. - pantoprazole DR (PROTONIX) 40 mg tablet Take 40 mg by mouth once daily. - warfarin (COUMADIN) 10 mg tablet Take 1 tablet by mouth every 48 hours. Take 7.5mg one day, then 10mg the other day - montelukast (SINGULAIR) 10 mg tablet Take 10 mg by mouth daily at bedtime. - topiramate (TOPAMAX) 50 mg tablet Take 100 mg by mouth twice daily. - cloNIDine 0.2 mg tablet Take 0.2 mg by mouth twice daily. 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 Normal [facility] Office Visiton 08-19-2023 Follow-up visit [id number] Joanie Pierre 1960 M Date Provider Department Center 08/19/2023 1596-SURI BANDA ANNITA [facility] Family History Problem Relation Age of Onset Coronary artery disease Mother Coronary artery disease Father Family Status - Relation Status Age at Mother Father Level of Service:95356 NC OFFICE/OUTPATIENT ESTABLISHED MOD MDM 30-39 MIN Normal [facility] 36on 07-23-2023 36 Called to schedule c onsult to discuss Glenny LUCAS. Pt had appointment that he had missed with pain management to discuss this. Glenny gatica called pt after missed appointment and pt asked if anyone in our facility specialized in DBS. Pt currently has [employer] DBS and would like to follow up with Dr. Lloyd instead. VM was left for pt to return my call to schedule if he chooses. [facility] José Antonio 07-07-2023 CNPN Telephone (NREUS2) ANDRY PIERRE ([id number]) 1960 M Date Time Provider Department 07/07/23 GLENN ROSE NREUS2 During your visit today, we recorded the following information about you: Rambo Sadie Raza 07/07/2023 2:49 PM Signed Via fax recd request from Dr. Kumar for surgery clearance that pt may turn off DBS during radiofrequency ablation (copy of request available in scanned docs). Kerwin if okay I can process request in Docusign for Dr. Rose's signature (tp). Kerwin Brito RN 07/10/2023 9:15 AM Addendum Spoke with tour sales representative from Dr. Kumar's office, they report they received response from us regarding surgical clearance letter indicating that safety of RF ablation has not been established for patients with DBS and therefore is not recommended per [employer]. Kerwin Brito RN Allergies As of Date: 07/07/2023 Noted Allergy Reaction BETA BLOCKERS (BETA-BLOCKERS (BET*07/24/2011 9 - Itching 14 - Other: See Comments HYDRALAZINE 05/19/2013 16 - Unknown Comments: Headache, nausea, sick NEURONTIN (GABAPENTIN) 11/25/2008 14 - Other: See Comments 16 - Unknown Comments: Unknown VALIUM (DIAZEPAM) 03/03/2008 16 - Unknown Comments: Was on the ground after took it Date Reviewed: 01/30/2022 Reviewed by: Virginia Swann RN - Fully Assessed Prescriptions as of 07/10/2023 - cephALEXin (KEFLEX) 500 mg capsule Take 1 capsule by mouth four times daily. - HYDROcodone-acetaminophen (NORCO) 5-325 mg per tablet Take 1 tablet by mouth every 8 hours as needed for pain. - ALOE VERA ORAL Take by mouth. - candesartan (ATACAND) 8 mg tablet Take 8 mg by mouth once daily. - albuterol HFA (PROVENTIL HFA, VENTOLIN HFA) 90 mcg/actuation inhaler albuterol sulfate HFA 90 mcg/actuation aerosol inhaler - NIFEdipine ER (PROCARDIA XL) 90 mg 24 hr tablet nifedipine ER 90 mg tablet,extended release 24 hr take 1 tablet by mouth once daily - tiotropium (SPIRIVA WITH HANDIHALER) 18 mcg inhalation capsule Spiriva with HandiHaler 18 mcg and inhalation capsules - traMADol (ULTRAM) 50 mg tablet tramadol 50 mg tablet take 2 tablets by mouth twice a day - furosemide (LASIX) 40 mg tablet Take 1 tablet by mouth twice daily. - atorvastatin (LIPITOR) 10 mg tablet Take 1 tablet by mouth once daily. - potassium chloride ER (KLOR-CON M20) 20 mEq tablet Take 1 tablet by mouth once daily. - insulin detemir U-100 (LEVEMIR FLEXTOUCH U-100 INSULIN) 100 unit/mL (3 mL) injection pen Inject 56 Units subcutaneously every morning. - oxybutynin ER (DITROPAN XL) 10 mg 24 hr tablet Take 10 mg by mouth once daily. - pantoprazole DR (PROTONIX) 40 mg tablet Take 40 mg by mouth once daily. - warfarin (COUMADIN) 10 mg tablet Take 1 tablet by mouth every 48 hours. Take 7.5mg one day, then 10mg the other day - montelukast (SINGULAIR) 10 mg tablet Take 10 mg by mouth daily at bedtime. - topiramate (TOPAMAX) 50 mg tablet Take 100 mg by mouth twice daily. - cloNIDine 0.2 mg tablet Take 0.2 mg by mouth twice daily. 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] 05/13/2014 Chronic deep vein thrombosis (DVT) of proximal *08/06/2018 Pulmonary embolus with infarction (HCC) [I26.99]08/06/2018 Volume overload [E87.70] 10/08/2018 Obesity, Class III, BMI >= 40 [E66.01] 10/09/2018 Recurrent major depression in partial remission*11/16/2019 Difficult intravenous access [Z78.9] 01/21/2022 Obstructive sleep apnea syndrome [G47.33] 01/21/2022 Parkinson's disease (HCC) [G20.A1] 01/21/2022 COPD (chronic obstructive pulmonary disease) (H*01/21/2022 Tobacco use [Z72.0] 01/21/2022 CHF (congestive heart failure) (HCC) [I50.9] 01/21/2022 CKD (chronic kidney disease) [N18.9] 01/21/2022 Encounter Status:Closed by KERWIN BRITO on 07/10/[address] [facility] Office Visiton 05-21-2023 Follow-up visit [id number] Joanie Pierre 1960 M Date Provider Department Center 05/21/2023 Myke-SURI BANDA [facility] Family History Problem Relation Age of Onset Coronary artery disease Mother Coronary artery disease Father Family Status - Relation Status Age at Mother Father Level of Service:58248 NC OFFICE/OUTPATIENT ESTABLISHED MOD MDM 30-39 MIN Reason for Visit and Comments: Follow-up [445109] Normal [facility] INSULINon 02-21-2023 Insulin 9.5 uIU/mL Normal 2.6-24.9 [facility] Comment on above: Performed By: #### I NSULIN #### [facility] [address] [place] [address] Dr. Miah Buck XR LSPINE 2_3 VIEWSon 2022 XR LSPINE 2_3 VIEWS EXAMINATION: XR LSPINE 2_3 VIEWS HISTORY: Low back pain , chronic; multiple falls COMPARISON: CT abdomen pelvis 01/07/2023, 01/01/2022 FINDINGS: BONES: Mild degenerative facet arthropathy L4-L5, L5-S1. No fracture, spondylolisthesis, bone lesion. DISC SPACES: No significant disc height narrowing, subluxation, or endplate abnormality. PARASPINOUS: Negative. No paraspinous abnormality is seen. OTHER: Negative. IMPRESSION: 1. No appreciable acute abnormality. 2. Mild degenerative changes. Electronically authenticated by: ROCK AVELAR Date: 2023-02-21 06:[address] [facility] BNPon 02-20-2023 Natriuretic peptide B (Bld) [Mass/Vol] 52.0 pg/mL Normal <=900.[address] [facility] Comment on above: Performed By: #### M G, CMP, BNP, TSH, CRP #### [facility] [address] [place] [address] [address] Miah Buck CBC AUTO DIFFon 02-20-2023 BASO # 0.1 103/ul Normal 0.0-0.1 [facility] Comment on above: Performed By: #### A 1C #### [facility] [address] [place] [address] Dr. Miah Buck Basophils/100 WBC (Bld) 0.8 % Normal 0.2-2.[address] [facility] Comment on above: Performed By: #### A 1C #### [facility] [address] [address] [address] Miah Buck EO # 0.3 103/ul Normal 0.0-0.[address] [facility] Comment on above: Performed By: #### A 1C #### [facility] [address] [place] [address] Dr. Miah Buck Eosinophils/100 WBC (Bld) 3.5 % Normal 0.9-7.[address] [facility] Comment on above: Performed By: #### A 1C #### [facility] [address] [place] [address] Dr. Miah Buck Erythrocyte distribution width (RBC) [Ratio] 12.7 % Normal 11.0-15.[address] [facility] Comment on above: Performed By: #### A 1C #### [facility] [address] [place] [address] Dr. Miah Buck Hematocrit (Bld) [Volume fraction] 48.8 % Normal 42.0-54.[address] [facility] Comment on above: Performed By: #### A 1C #### [facility] [address] [address] [address] Miah Buck Hemoglobin (Bld) [Mass/Vol] 16.8 g/dL Normal 14.0-18.0 [facility] Comment on above: Performed By: #### A 1C #### [facility] [address] [address] [address] Miah Buck IG # 0.04 10e3/ul Critically high 0.00-0.03 [facility] Comment on above: Performed By: #### A 1C #### [facility] [address] [address] [address] Miah Buck IG % 0.6 % Critically high 0.0-0.5 [facility] Comment on above: Performed By: #### A 1C #### [facility] [address] [place] [address] Dr. Miah Buck LYMPH # 1.9 103/ul Normal 1.2-3.8 [facility] Comment on above: Performed By: #### A 1C #### [facility] [address] [place] [address] Dr. Miah Buck Lymphocytes/100 WBC (Bld) 27.0 % Normal 20.5-60.0 [facility] Comment on above: Performed By: #### A 1C #### [facility] [address] [place] [address] Dr. Miah Buck MANUAL DIFF REQ NO Normal [facility] Comment on above: Performed By: #### A 1C #### [facility] [address] [address] [address] Miah Buck MCH (RBC) [Entitic mass] 31.5 pg Normal 25.9-34.[address] [facility] Comment on above: Performed By: #### A 1C #### [facility] [address] [place] [address] Dr. Miah Buck MCHC (RBC) [Mass/Vol] 34.4 g/dL Normal 29.9-35.[address] [facility] Comment on above: Performed By: #### A 1C #### [facility] [address] [address] [address] Miah Buck MCV (RBC) [Entitic vol] 91.4 fL Normal 80.0-94.0 [facility] Comment on above: Performed By: #### A 1C #### [facility] [address] [address] [address] Miah Buck MONO # 0.4 103/ul Normal 0.3-0.[address] [facility] Comment on above: Performed By: #### A 1C #### [facility] [address] [address] [address] Miah Buck Monocytes/100 WBC (Bld) 5.5 % Normal 1.7-12.0 [facility] Comment on above: Performed By: #### A 1C #### [facility] [address] [place] [address] Dr. Miah Buck NEUT # 4.5 103/ul Normal 1.4-6.5 [facility] Comment on above: Performed By: #### A 1C #### [facility] [address] [place] [address] Dr. Miah Buck Neutrophils/100 WBC (Bld) 62.6 % Normal 43.0-75.0 [facility] Comment on above: Performed By: #### A 1C #### [facility] [address] [place] [address] Dr. Miah Buck Platelet mean volume (Bld) [Entitic vol] 10.6 fL Normal 9.5-13.[address] [facility] Comment on above: Performed By: #### A 1C #### [facility] [address] [place] [address] Dr. Miah Buck PLT 204 103/ul Normal 150-[address] [facility] Comment on above: Performed By: #### A 1C #### [facility] [address] [place] [address] Dr. Miah Buck RBC 5.34 106/ul Normal 4.70-6.[address] [facility] Comment on above: Performed By: #### A 1C #### [facility] [address] [address] [address] Miah Buck WBC 7.2 103/ul Normal 4.0-11.0 [facility] Comment on above: Performed By: #### A 1C #### [facility] [address] [place] [address] Dr. Miah Buck DIRECT LDLon 02-20-2023 Cholesterol in LDL [Mass/Vol] 173 mg/dL Normal [facility] Comment on above: Performed By: #### A 1C #### [facility] [address] [address] [address] Miah Buck DLDL NORMAL SEE BELOW Normal [facility] Comment on above: Result Comment: <100 mg/dl OPTIMAL 100 - 129 mg/dl NEAR OR ABOVE OPTIMAL 130 - 159 mg/dl BORDERLINE HIGH 160 - 189 mg/dl HIGH >190 mg/dl VERY HIGH Performed By: #### A 1C #### [facility] [address] [place] [address] Dr. Miah Buck FREE T3on 02-20-2023 FREE T3 1.75 pg/mlL Critically low 2.18-3.98 [facility] Comment on above: Performed By: #### A 1C #### [facility] [address] [place] [address] Dr. Miah Buck GLYCOHEMOGLOBIN A1Con 2022 ADA RECOMMENDATION SEE BELOW Normal [facility] Comment on above: Result Comment: ADA RECOMMENDED LIMIT 4.0 - 6.0 ADA THERAPEUTIC TARGET < 7.0 ACTION SUGGESTED > 7.0 Performed By: #### A 1C #### [facility] [address] [place] [address] Dr. Miah Buck Glucose [Mass/Vol] 298 mg/dL Normal [facility] Comment on above: Performed By: #### A 1C #### [facility] [address] [place] [address] Dr. Miah Buck HbA1c (Bld) [Mass fraction] 12.0 % Critically high 4.5-6.2 [facility] Comment on above: Performed By: #### A 1C #### [facility] [address] [place] [address] Dr. Miah Buck LIPID PROFILEon 02-20-2023 CHOL-HDL RATIO NORM SEE BELOW Normal [facility] Comment on above: Result Comment: 3.3 - 4.4 LOW RISK 4.4 - 7.1 AVERAGE RISK 7.1 - 11.0 MODERATE RISK >11.0 HIGH RISK Performed By: #### A 1C #### [facility] [address] [address] [address] Miah Buck Cholesterol [Mass/Vol] 303 mg/dL Critically high <=200 [facility] Comment on above: Performed By: #### A 1C #### [facility] [address] [address] [address] Miah Buck Cholesterol in HDL [Mass/Vol] 33 mg/dL Critically low 40-60 [facility] Comment on above: Performed By: #### A 1C #### [facility] [address] [address] Dr. Miah Buck Cholesterol.total/ Cholesterol in HDL [Mass ratio] 9.2 {ratio} Normal [facility] Comment on above: Performed By: #### A 1C #### [facility] [address] [address] [address] Miah Buck HDL NORMAL > or = 60 mg/dl - LO W CARDIOVASCULAR RISK <40 mg/dl - HIGH CARDIOVASCULAR RISK Normal [facility] Comment on above: Performed By: #### A 1C #### [facility] [address] [address] [address] Miah Buck Triglyceride [Mass/Vol] 454 mg/dL Critically high <=150 [facility] Comment on above: Performed By: #### A 1C #### [facility] [address] [address] [address] Miah Buck VLDL CALC 90.8 mg/dL Normal [facility] Comment on above: Performed By: #### A 1C #### [facility] [address] [address] [address] Miah Buck Office Visiton 02-20-2023 Follow-up visit [id number] Joanie Pierre 1960 Date Provider Department Center 02/20/[address] [facility] Family History Problem Relation Age of Onset Coronary artery disease Mother Coronary artery disease Father Family Status - Relation Status Age at Mother Father Level of Service:01223 [place] OFFICE/OUTPATIENT ESTABLISHED MOD MDM 30-39 MIN Normal [facility] PROF 14(COMP METB)on 023 Albumin [Mass/Vol] 3.5 g/dL Normal 3.4-5.0 [facility] Comment on above: Performed By: #### A 1C #### [facility] [address] [place] [address] Dr. Miah Buck Albumin/Globulin [Mass ratio] 0.7 {ratio} Normal [facility] Comment on above: Performed By: #### A 1C #### [facility] [address] [place] [address] Dr. Miah Buck ALP [Catalytic activity/Vol] 146 U/L Critically high 46-116 [facility] Comment on above: Performed By: #### A 1C #### [facility] [address] [place] [address] Dr. Miah Buck ALT [Catalytic activity/Vol] 40 U/L Normal 16-63 [facility] Comment on above: Performed By: #### A 1C #### [facility] [address] [place] [address] Dr. Miah Buck Anion gap [Moles/Vol] 13.8 mmol/L Normal [facility] Comment on above: Performed By: #### A 1C #### [facility] [address] [place] [address] Dr. Miah Buck AST [Catalytic activity/Vol] 19 U/L Normal 15-37 [facility] Comment on above: Performed By: #### A 1C #### [facility] [address] [place] [address] Dr. Miah Buck Bilirubin [Mass/Vol] 0.4 mg/dL Normal 0.2-1.0 [facility] Comment on above: Performed By: #### A 1C #### [facility] [address] [place] [address] Dr. Miah Buck Calcium [Mass/Vol] 9.1 mg/dL Normal 8.5-10.1 [facility] Comment on above: Performed By: #### A 1C #### [facility] [address] [place] [address] Dr. Miah Buck Chloride [Moles/Vol] 99 mmol/L Normal 98-107 [facility] Comment on above: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 [place] [address], [place] CBC W/DIFFon 07-27-2021 ABS IMM GRANS 0.1 10*3/uL Normal 0.0-0.2 [facility] Comment on above: Performed By: #### 1 0070, 94288, 29559, 99872 #### [facility] [address] [place] [address], [facility] ABS NEUTROPHILS 10.2 10*3/uL High 1.6-7.6 [facility] Comment on above: Performed By: #### 1 0070, 03972, 87949, 00941 #### [facility] [address] [place] [address], [facility] Basophils (Bld) [#/Vol] 0.0 10*3/uL Normal 0.0-0.2 [facility] Comment on above: Performed By: #### 1 0, 84831, 22922, 59559 #### [facility] [address] [facility] [place] [address], [facility] Basophils/100 WBC (Bld) 0.3 % Normal 0.0-1.0 [facility] Comment on above: Performed By: #### 1 0, 87683, 58493, 07298 #### [facility] [address] [place] [address], [facility] Eosinophils (Bld) [#/Vol] 0.0 10*3/uL Normal 0.0-0.5 [facility] Comment on above: Performed By: #### 1 0, 36319, 75645, 43767 #### [facility] [address] [place] [address], [facility] Eosinophils/100 WBC (Bld) 0.0 % Normal 0.0-6.0 [facility] Comment on above: Performed By: #### 1 0070, 49062, 31649, 27451 #### [facility] [address] [facility] [place] [address], [facility] Erythrocyte distribution width (RBC) [Ratio] 13.2 % Normal 11.5-15.0 [facility] Comment on above: Performed By: #### 1 0070, 89136, 75140, 28521 #### [facility] [address] [facility]. [address] Hematocrit (Bld) [Volume fraction] 44.2 % Normal 39.0-50.0 [facility] Comment on above: Performed By: #### 1 0070, 63023, 18837, 07324 #### [facility] [address] [facility] [address] Hemoglobin (Bld) [Mass/Vol] 14.9 g/dL Normal 13.0-17.0 [facility] Comment on above: Performed By: #### 1 0, 79141, 34538, 55592 #### [facility] [address] [facility]. [address] IMMATURE GRANS 0.7 % Normal 0.0-1.0 [facility] Comment on above: Performed By: #### 1 0070, 85683, 62735, 80364 #### [facility] [address] [facility]. [address] Lymphocytes (Bld) [#/Vol] 1.0 10*3/uL Low 1.2-4.0 [facility] Comment on above: Performed By: #### 1 0, 56916, 78353, 74250 #### [facility] [address] [facility]. [address] Lymphocytes/100 WBC (Bld) 8.2 % Low 20.0-45.0 [facility] Comment on above: Performed By: #### 1 0070, 04484, 19198, 94493 #### [facility] [address] MCH (RBC) [Entitic mass] 31.2 pg Normal 27.0-33.0 [facility] Comment on above: Performed By: #### 1 0070, 38539, 23007, 82415 #### [facility] [address] [facility] [place] [address], [facility] MCHC (RBC) [Mass/Vol] 33.7 g/dL Normal 32.0-35.0 [facility] Comment on above: Performed By: #### 1 0070, 58294, 48482, 17207 #### [facility] [address] [place] [address], [facility] MCV (RBC) [Entitic vol] 92.7 fL Normal 82.0-98.0 [facility] Comment on above: Performed By: #### 1 0070, 00748, 14022, 04620 #### [facility] [address] [facility] [place] [address], [facility] Monocytes (Bld) [#/Vol] 0.9 10*3/uL Normal 0.1-1.0 [facility] Comment on above: Performed By: #### 1 0070, 51109, 12441, 36171 #### [facility] [address] [place] [address], [facility] MONOS 7.0 % Normal 5.0-12.0 [facility] Comment on above: Performed By: #### 1 0070, 23908, 42459, 52127 #### [facility] [address] [facility] [place] [address], [facility] Neutrophils/100 WBC (Bld) 83.8 % High 40.0-72.0 [facility] Comment on above: Performed By: #### 1 0070, 45178, 55754, 39077 #### [facility] [address] [facility] [place] [address], [facility] Nucleated RBC/100 WBC (Bld) [Ratio] 0 % Normal 0-0 [facility] Comment on above: Performed By: #### 1 0070, 25703, 12364, 18348 #### [facility] [address] [place] [address], [facility] PLAT CNT 198 10*3/uL Normal 150-400 [facility] Comment on above: Performed By: #### 1 0070, 88388, 13945, 69293 #### [facility] [address] [place] [address], [facility] RBC (Bld) [#/Vol] 4.77 10*6/uL Normal 4.20-5.70 [facility] Comment on above: Performed By: #### 1 0070, 51925, 13850, 42592 #### [facility] [address] [place] [address], [place] WBC (Bld) [#/Vol] 12.15 10*3/uL High 4.00-10.60 [facility] Comment on above: Performed By: #### 1 0070, 37206, 00154, 76004 #### [facility] [address] [place] [address], [facility] LIVER BATTERYon 07-27-2021 Albumin [Mass/Vol] 3.3 g/dL Low 3.5-5.7 [facility] Comment on above: Order Comment: No: D o not add to previous draw Performed By: #### 1 0070, 81053, 03871, 34324 #### [facility] [address] [place] [address], [facility] ALKALINE PHOSPH 124 IU/L High 34-104 [facility] Comment on above: Order Comment: No: D o not add to previous draw Performed By: #### 1 0070, 45433, 69563, 89365 #### [facility] [address] [place] [address], [place] ALT [Catalytic activity/Vol] 58 U/L High 7-52 [facility] Comment on above: Order Comment: No: D o not add to previous draw Performed By: #### 1 0070, 78027, 67627, 24834 #### [facility] [address] [place] [address], [place] AST [Catalytic activity/Vol] 48 U/L High 13-39 [facility] Comment on above: Order Comment: No: D o not add to previous draw Performed By: #### 1 0070, 68933, 18905, 25263 #### [facility] [address] [place] [address], [place] Bilirubin [Mass/Vol] 0.8 mg/dL Normal 0.3-1.0 [facility] Comment on above: Order Comment: No: D o not add to previous draw Performed By: #### 1 0070, 15623, 69350, 08978 #### [facility] [address] [place] [address], [facility] Bilirubin.direct [Mass/Vol] 0.3 mg/dL High 0.0-0.2 [facility] Comment on above: Order Comment: No: D o not add to previous draw Performed By: #### 1 0070, 69723, 66747, 14795 #### [facility] [address] [place] [address], [facility] Protein [Mass/Vol] 6.2 g/dL Normal 6.0-8.3 [facility] Comment on above: Order Comment: No: D o not add to previous draw Performed By: #### 1 0070, 80709, 75002, 09992 #### [facility] [address] [place] [address], [place] MAGNESIUM BLOODon 07-27-2021 Magnesium [Mass/Vol] 1.8 mg/dL Low 1.9-2.7 [facility] Comment on above: Order Comment: No: D o not add to previous draw Performed By: #### 1 0070, 16343, 12399, 84646 #### [facility] [address] [place] [address], [place] PHOSPHORUS BLOODon Phosphate [Mass/Vol] 2.9 mg/dL Normal 2.5-5.0 [facility] Comment on above: Order Comment: No: D o not add to previous draw Performed By: #### 1 0070, 43503, 84841, 84784 #### [facility] [address] POC GLUCOSE LABon 07-27-2021 Glucose [Mass/Vol] 260 mg/dL High 70-100 [facility] Comment on above: Performed By: #### 8 5499 #### [facility] [address] [place] [address], [facility] Glucose [Mass/Vol] 225 mg/dL High 70-100 [facility] Comment on above: Performed By: #### 1 0070, 41798, 57340, 34358 #### [facility] [address] [facility] [address] PROTHROMBIN TIMEon INR Coag (PPP) [Relative time] 1.22 {INR} High 0.91-1.16 [facility] Comment on above: Order Comment: No: D o not add to previous draw Result Comment: ACCC P RECOMMENDED INR FOR WARFARIN THERAPY ----- ------- CONDITION INR PROPHYLAXIS OF VENOUS THROMBOSIS 2-3 (HIGH-RISK SURGERY) TREATMENT OF VENOUS THROMBOSIS 2-3 TREATMENT OF PULMONARY EMBOLISM 2-3 PREVENTION OF SYSTEMIC EMBOLISM: 2-3 ACUTE MYOCARDIAL INFARCTION TISSUE HEART VALVES VALVULAR HEART DISEASE ATRIAL FIBRILLATION RECURRENT SYSTEMIC EMBOLISM MECHANICAL HEART VALVE 2.5-3.5 FROM: ORAL ANTICOAGULANTS. MECHANISM OF ACTION, CLINICAL EFFECTIVENESS, AND OPTIMAL THERAPEUTIC RANGE. CHEST 1995;108:231S-246S. Performed By: #### 1 0070, 63902, 83265, 74145 #### [facility] [address] [place] [address], [facility] PT Coag (PPP) [Time] 15.4 s High 12.3-14.8 [facility] Comment on above: Order Comment: No: D o not add to previous draw Result Comment: ALL RESULTS MUST BE INTERPRETED WITH RESPECT TO BLOOD DRAWING ARTIFACT OR DILUTION ERROR OF ANTICOAGULANT AT THE TIME OF SAMPLING. Performed By: #### 1 0070, 34175, 98124, 05410 #### [facility] [address] [place] [address], [facility] BASIC METABOLIC PANELon 10-2 Calcium [Mass/Vol] 8.5 mg/dL Low 8.6-10.3 [facility] Comment on above: Order Comment: No: D o not add to previous draw Performed By: #### 8 5499 #### [facility] [address] [place] [address], [facility] Chloride [Moles/Vol] 108 mmol/L High 98-107 [facility] Comment on above: Order Comment: No: D o not add to previous draw Performed By: #### 8 5499 #### [facility] [address] [place] [address], [facility] CO2 [Moles/Vol] 24 mmol/L Normal 21-31 [facility] Comment on above: Order Comment: No: D o not add to previous draw Performed By: #### 8 5499 #### [facility] [address] [place] [address], [facility] Creatinine [Mass/Vol] 1.23 mg/dL Normal 0.70-1.30 [facility] Comment on above: Order Comment: No: D o not add to previous draw Performed By: #### 8 5499 #### [facility] [address] [place] [address], [facility] eGFR- non- 60 ml/min/1.73sq m Abnormal >60 [facility] Comment on above: Order Comment: No: D o not add to previous draw Performed By: #### 8 5499 #### [facility] [address] [place] [address], [place] GFR/1.73 sq M.predicted among blacks MDRD (S/P/Bld) [Vol rate/Area] mL/min/{1.73_m2} Normal >60 [facility] Comment on above: Order Comment: No: D o not add to previous draw Performed By: #### 8 5499 #### [facility] [address] [place] [address], [place] Glucose [Mass/Vol] 141 mg/dL High 70-100 [facility] Comment on above: Order Comment: No: D o not add to previous draw Performed By: #### 8 5499 #### [facility] [address] [place] [address], [place] Potassium [Moles/Vol] 3.5 mmol/L Normal 3.5-5.1 [facility] Comment on above: Order Comment: No: D o not add to previous draw Performed By: #### 8 5499 #### [facility] [address] [place] [address], [place] Sodium [Moles/Vol] 139 mmol/L Normal 136-145 [facility] Comment on above: Order Comment: No: D o not add to previous draw Performed By: #### 8 5499 #### [facility] [address] [place] [address], [place] Urea nitrogen [Mass/Vol] 18 mg/dL Normal 7-25 [facility] Comment on above: Order Comment: No: D o not add to previous draw Performed By: #### 8 5499 #### [facility] [address] [place] [address], [place] CBC COMPLETE BLOOD COUNTon - Erythrocyte distribution width (RBC) [Ratio] 13.2 % Normal 11.5-15.0 [facility] Comment on above: Order Comment: No: D o not add to previous draw Performed By: #### 1 0070, 40473, 92977, 08169 #### [facility] [address] [place] [address], [facility] Hematocrit (Bld) [Volume fraction] 42.7 % Normal 39.0-50.0 [facility] Comment on above: Order Comment: No: D o not add to previous draw Performed By: #### 1 0070, 96621, 46446, 61081 #### [facility] [address] [place] [address], [facility] Hemoglobin (Bld) [Mass/Vol] 14.5 g/dL Normal 13.0-17.0 [facility] Comment on above: Order Comment: No: D o not add to previous draw Performed By: #### 1 0070, 77873, 87605, 45467 #### [facility] [address] [place] [address], [facility] MCH (RBC) [Entitic mass] 32.0 pg Normal 27.0-33.0 [facility] Comment on above: Order Comment: No: D o not add to previous draw Performed By: #### 1 0070, 18488, 43597, 65095 #### [facility] [address] [place] [address], [facility] MCHC (RBC) [Mass/Vol] 34.0 g/dL Normal 32.0-35.0 [facility] Comment on above: Order Comment: No: D o not add to previous draw Performed By: #### 1 0070, 12277, 13228, 74893 #### [facility] [address] [facility] [place] [id number], [facility] MCV (RBC) [Entitic vol] 94.3 fL Normal 82.0-98.0 [facility] Comment on above: Order Comment: No: D o not add to previous draw Performed By: #### 1 0070, 67073, 51479, 65847 #### [facility] [address] [place] [address], [facility] Nucleated RBC/100 WBC (Bld) [Ratio] 0 % Normal 0-0 [facility] Comment on above: Order Comment: No: D o not add to previous draw Performed By: #### 1 0070, 27311, 30783, 45397 #### [facility] [address] [place] [address], [facility] PLAT CNT 179 10*3/uL Normal 150-400 [facility] Comment on above: Order Comment: No: D o not add to previous draw Performed By: #### 1 0070, 90852, 71409, 81173 #### [facility] [address] [place] [address], [facility] RBC (Bld) [#/Vol] 4.53 10*6/uL Normal 4.20-5.70 [facility] Comment on above: Order Comment: No: D o not add to previous draw Performed By: #### 1 0070, 05587, 46380, 41405 #### [facility] [address] [place] [address], [facility] WBC (Bld) [#/Vol] 7.86 10*3/uL Normal 4.00-10.60 [facility] Comment on above: Order Comment: No: D o not add to previous draw Performed By: #### 1 0070, 81708, 38605, 35725 #### [facility] [address] [facility] [place] [address], [facility] LIVER BATTERYon 07-26-2021 Albumin [Mass/Vol] 3.2 g/dL Low 3.5-5.7 [facility] Comment on above: Order Comment: No: D o not add to previous draw Performed By: #### 0 0071, 35054 #### [facility] [address] [place] [id number], [facility] ALKALINE PHOSPH 114 IU/L High 34-104 [facility] Comment on above: Order Comment: No: D o not add to previous draw Performed By: #### 0 0071, 17012 #### [facility] [address] [place] [address], [place] ALT [Catalytic activity/Vol] 37 U/L Normal 7-52 [facility] Comment on above: Order Comment: No: D o not add to previous draw Performed By: #### 0 0071, 93054 #### [facility] [address] [place] [address], [place] AST [Catalytic activity/Vol] 28 U/L Normal 13-39 [facility] Comment on above: Order Comment: No: D o not add to previous draw Performed By: #### 0 0071, 20259 #### [facility] [address] [place] [address], [place] Bilirubin [Mass/Vol] 0.6 mg/dL Normal 0.3-1.0 [facility] Comment on above: Order Comment: No: D o not add to previous draw Performed By: #### 0 0071, 04821 #### [facility] [address] [place] [address], [place] Bilirubin.direct [Mass/Vol] 0.1 mg/dL Normal 0.0-0.2 [facility] Comment on above: Order Comment: No: D o not add to previous draw Performed By: #### 0 0071, 96794 #### [facility] [address] [place] [address], [place] Protein [Mass/Vol] 6.3 g/dL Normal 6.0-8.3 [facility] Comment on above: Order Comment: No: D o not add to previous draw Performed By: #### 0 0071, 32834 #### [facility] [address] [place] [address], [place] Operative Reporton 1 Operative Report MR#: [id number] [facility] Pt. Name: Andry Pierre Room #: 4CD [id number] Discharge Date: Birthdate: 1960 OPERATIVE REPORT DATE OF SURGERY: 07/26/2021 SURGEON: Davon Olivier M.D. Preoperative diagnosis: chronic cholecystitis, cholelithiasis, choledocholithiasis, morbid obesity Postoperative diagnosis: Same The operation was performed: Laparoscopic cholecystectomy Anesthesia: General endotracheal anesthesia Surgeon: Davon Olivier M.D. Indication: 60 years old white male with chronic cholecystitis, cholelithiasis and choledocholithiasis. He is status post ERCP. Laparoscopic cholecystectomy and possible intraoperative cholangiogram were offered to the patient, informed consent was obtained. Surgery: Patient was brought to the operative room placed on the operating table in supine position, general anesthesia was initiated. Patient's abdomen was prepped and draped in usual sterile fashion. Timeout was completed. A 5 mm Optiview trocar was inserted through right paraumbilical abdominal wall under direct visualization. CO2 insufflation was started. Patient was converted to a reverse Trendelenburg position and tilted towards the left. A 12 mm trocars were inserted through subxyphoid, two 5 mm trocarswere inserted through right subcostal abdominal wall under direct visuolization. Adhesion around the gallbladder was taken down by electrocautery and blunt dissection. Gallbladder wall has edema. Fundus of the gallbladder was retracted superiorly, infundibulum of the gallbladder was retracted laterally, blunt and electrocautery dissection around the infundibulum was performed to achieved critical view of safety. Cystic duct and the cystic artery was dissected out, which are the only 2 ductal structure into the gallbladder. Cystic duct and cystic artery were double clipped proximally and single clipped distally with a Hem-o-irene and divided with EndoShears. Gallbladder was removed from liver bed with electrocautery and placed into Endo Catch bag. Suction irrigation was performed. Hemostasis was obtained by electrocautery. Gallbladder was removed from the subxiphoid incision inside a Endocatch bag. CO2 was desufflated, the trocars were removed. Subxiphoid incision fascia was closed by 0 Vicryl interrupted suture, which was placed by Magdaleno-Mary needle. Skin of the incisions were closed by 4-0 Vicryl subcuticular suture and surgical glue. Surgery was completed without complication, I was present for entire operation, patient remained in stable condition, minimal blood loss, gallbladder was sent to permanent pathology evaluation, instrument count and sponge count were correct Electronically Signed by: Davon Olivier M.D. 07/26/2021 04:36 P Davon Olivier M.D. Date Dict: 07/26/2021/04:31 P/Davon Olivier M.D. Date Trans: 07/26/2021 04:31 P/ [id number] cc: Luis Mccormick M.D. [address] [id number] Normal [facility] POC GLUCOSE LABon 07-26-2021 Glucose [Mass/Vol] 155 mg/dL High 70-100 [facility] Comment on above: Performed By: #### 1 0070, 81541, 88478, 31598 #### [facility] [address] [place] [address], [place] Glucose [Mass/Vol] 149 mg/dL High 70-100 [facility] Comment on above: Performed By: #### 8 5499 #### [facility] [address] [place] [address], [place] Glucose [Mass/Vol] 123 mg/dL High 70-100 [facility] Comment on above: Performed By: #### 1 0070, 05262, 76764, 47629 #### [facility] [address] [place] [address], [place] Glucose [Mass/Vol] 126 mg/dL High 70-100 [facility] Comment on above: Performed By: #### 8 5499 #### [facility] [address] [place] [address], [place] PROTHROMBIN TIMEon INR Coag (PPP) [Relative time] 1.20 {INR} High 0.91-1.16 [facility] Comment on above: Order Comment: No: D o not add to previous draw Result Comment: ACCC P RECOMMENDED INR FOR WARFARIN THERAPY ----- ------- CONDITION INR PROPHYLAXIS OF VENOUS THROMBOSIS 2-3 (HIGH-RISK SURGERY) TREATMENT OF VENOUS THROMBOSIS 2-3 TREATMENT OF PULMONARY EMBOLISM 2-3 PREVENTION OF SYSTEMIC EMBOLISM: 2-3 ACUTE MYOCARDIAL INFARCTION TISSUE HEART VALVES VALVULAR HEART DISEASE ATRIAL FIBRILLATION RECURRENT SYSTEMIC EMBOLISM MECHANICAL HEART VALVE 2.5-3.5 FROM: ORAL ANTICOAGULANTS. MECHANISM OF ACTION, CLINICAL EFFECTIVENESS, AND OPTIMAL THERAPEUTIC RANGE. CHEST 1995;108:231S-246S. Performed By: #### 1 0070, 99398, 30168, 26496 #### [facility] [address] [place] [address], [facility] PT Coag (PPP) [Time] 15.2 s High 12.3-14.8 [facility] Comment on above: Order Comment: No: D o not add to previous draw Result Comment: ALL RESULTS MUST BE INTERPRETED WITH RESPECT TO BLOOD DRAWING ARTIFACT OR DILUTION ERROR OF ANTICOAGULANT AT THE TIME OF SAMPLING. Performed By: #### 1 0070, 69822, 27371, 52950 #### [facility] [address] [place] [address], [facility] APTTon 07-25-2021 aPTT Coag (Bld) [Time] 29.3 s Normal 25.0-35.0 [facility] Comment on above: Order Comment: No: D o not add to previous draw Result Comment: ALL RESULTS MUST BE INTERPRETED WITH RESPECT TO BLOOD DRAWING ARTIFACT OR DILUTION ERROR OF ANTICOAGULANT AT THE TIME OF SAMPLING. THE APTT SHOULD NOT BE USED TO MONITOR UNFRACTIONATED HEPARIN THERAPY, THIS LABORATORY NO LONGER HAS AN ESTABLISHED THERAPEUTIC RANGE BASED ON THE APTT. IT IS RECOMMENDED THAT THE UFH - HEPARIN ASSAY (ANTI-XA ACTIVITY) BE USED FOR THIS PURPOSE. Performed By: #### 1 0070, 38879, 96591, 89068 #### [facility] [address] aPTT Coag (Bld) [Time] 28.7 s Normal 25.0-35.0 [facility] Comment on above: Order Comment: No: D o not add to previous draw Result Comment: ALL RESULTS MUST BE INTERPRETED WITH RESPECT TO BLOOD DRAWING ARTIFACT OR DILUTION ERROR OF ANTICOAGULANT AT THE TIME OF SAMPLING. THE APTT SHOULD NOT BE USED TO MONITOR UNFRACTIONATED HEPARIN THERAPY, THIS LABORATORY NO LONGER HAS AN ESTABLISHED THERAPEUTIC RANGE BASED ON THE APTT. IT IS RECOMMENDED THAT THE UFH - HEPARIN ASSAY (ANTI-XA ACTIVITY) BE USED FOR THIS PURPOSE. Performed By: #### 1 0070, 52604, 42516, 16468 #### [facility] [address] BASIC METABOLIC PANELon 10-2 0-2020 Calcium [Mass/Vol] 8.3 mg/dL Low 8.6-10.3 [facility] Comment on above: Order Comment: No: D o not add to previous draw Performed By: #### 1 0, 69865, 18438, 66397 #### [facility] [address] [place] [address], [facility] Chloride [Moles/Vol] 111 mmol/L High 98-107 [facility] Comment on above: Order Comment: No: D o not add to previous draw Performed By: #### 1 0070, 27230, 34161, 97510 #### [facility] [address] [place] [address], [facility] CO2 [Moles/Vol] 26 mmol/L Normal 21-31 [facility] Comment on above: Order Comment: No: D o not add to previous draw Performed By: #### 1 0070, 62226, 58996, 10580 #### [facility] [address] [place] [address], [place] Creatinine [Mass/Vol] 1.25 mg/dL Normal 0.70-1.30 [facility] Comment on above: Order Comment: No: D o not add to previous draw Performed By: #### 1 0070, 42194, 30819, 84289 #### [facility] [address] [place] [address], [place] eGFR- non- 59 ml/min/1.73sq m Abnormal >60 [facility] Comment on above: Order Comment: No: D o not add to previous draw Performed By: #### 1 0070, 85840, 58636, 90937 #### [facility] [address] [place] [address], [place] GFR/1.73 sq M.predicted among blacks MDRD (S/P/Bld) [Vol rate/Area] mL/min/{1.73_m2} Normal >60 [facility] Comment on above: Order Comment: No: D o not add to previous draw Performed By: #### 1 0070, 85014, 26569, 75557 #### [facility] [address] [place] [address], [place] Glucose [Mass/Vol] 107 mg/dL High 70-100 [facility] Comment on above: Order Comment: No: D o not add to previous draw Performed By: #### 1 0070, 57357, 69353, 66191 #### [facility] [address] [place] [address], [place] Potassium [Moles/Vol] 3.6 mmol/L Normal 3.5-5.1 [facility] Comment on above: Order Comment: No: D o not add to previous draw Performed By: #### 1 0070, 44027, 19281, 07390 #### [facility] [address] [place] [address], [place] Sodium [Moles/Vol] 143 mmol/L Normal 136-145 [facility] Comment on above: Order Comment: No: D o not add to previous draw Performed By: #### 1 0070, 67570, 34877, 06377 #### [facility] [address] [place] [address], [facility] Urea nitrogen [Mass/Vol] 22 mg/dL Normal 7-25 [facility] Comment on above: Order Comment: No: D o not add to previous draw Performed By: #### 1 0070, 91139, 42838, 30076 #### [facility] [address] [place] [id number], [facility] CBC COMPLETE BLOOD COUNTon Erythrocyte distribution width (RBC) [Ratio] 13.3 % Normal 11.5-15.0 [facility] Comment on above: Order Comment: No: D o not add to previous draw Performed By: #### 1 0070, 29455, 19081, 01760 #### [facility] [address] [place] [id number], [facility] Hematocrit (Bld) [Volume fraction] 46.9 % Normal 39.0-50.0 [facility] Comment on above: Order Comment: No: D o not add to previous draw Performed By: #### 1 0070, 94627, 23662, 43997 #### [facility] [address] [place] [address], [facility] Hemoglobin (Bld) [Mass/Vol] 15.4 g/dL Normal 13.0-17.0 [facility] Comment on above: Order Comment: No: D o not add to previous draw Performed By: #### 1 0070, 29734, 89135, 47626 #### [facility] [address] [place] [address], [place] MCH (RBC) [Entitic mass] 31.3 pg Normal 27.0-33.0 [facility] Comment on above: Order Comment: No: D o not add to previous draw Performed By: #### 1 0070, 92087, 53705, 53950 #### [facility] [address] [place] [id number], [facility] MCHC (RBC) [Mass/Vol] 32.8 g/dL Normal 32.0-35.0 [facility] Comment on above: Order Comment: No: D o not add to previous draw Performed By: #### 1 0070, 39754, 02480, 73798 #### [facility] [address] [place] [address], [facility] MCV (RBC) [Entitic vol] 95.3 fL Normal 82.0-98.0 [facility] Comment on above: Order Comment: No: D o not add to previous draw Performed By: #### 1 0070, 38657, 76734, 76096 #### [facility] [address] [facility] [place] [id number], [facility] Nucleated RBC/100 WBC (Bld) [Ratio] 0 % Normal 0-0 [facility] Comment on above: Order Comment: No: D o not add to previous draw Performed By: #### 1 0070, 39586, 80177, 17679 #### [facility] [address] [facility] [place] [address], [facility] PLAT CNT 183 10*3/uL Normal 150-400 [facility] Comment on above: Order Comment: No: D o not add to previous draw Performed By: #### 1 0070, 79367, 27929, 26301 #### [facility] [address] [facility] [place] [address], [facility] RBC (Bld) [#/Vol] 4.92 10*6/uL Normal 4.20-5.70 [facility] Comment on above: Order Comment: No: D o not add to previous draw Performed By: #### 1 0070, 35846, 34369, 60999 #### [facility] [address] [place] [address], [place] WBC (Bld) [#/Vol] 9.70 10*3/uL Normal 4.00-10.60 [facility] Comment on above: Order Comment: No: D o not add to previous draw Performed By: #### 1 0070, 12114, 79752, 26511 #### [facility] [address] [place] [address], [facility] LIPASE BLOODon 07-25-2021 LIPASE 34 Units/L Normal 11-82 [facility] Comment on above: Order Comment: No: D o not add to previous draw Performed By: #### 1 0070, 77956, 02575, 47568 #### [facility] [address] [place] [address], [facility] LIVER BATTERYon 07-25-2021 Albumin [Mass/Vol] 3.0 g/dL Low 3.5-5.7 [facility] Comment on above: Order Comment: No: D o not add to previous draw Performed By: #### 1 0070, 22947, 68250, 14808 #### [facility] [address] [place] [address], [facility] ALKALINE PHOSPH 113 IU/L High 34-104 [facility] Comment on above: Order Comment: No: D o not add to previous draw Performed By: #### 1 0070, 37149, 70837, 91939 #### [facility] [address] [place] [address], [facility] ALT [Catalytic activity/Vol] 37 U/L Normal 7-52 [facility] Comment on above: Order Comment: No: D o not add to previous draw Performed By: #### 1 0070, 98416, 47738, 11427 #### [facility] [address] [place] [address], [place] AST [Catalytic activity/Vol] 36 U/L Normal 13-39 [facility] Comment on above: Order Comment: No: D o not add to previous draw Performed By: #### 1 0070, 20247, 03133, 35076 #### [facility] [address] [place] [address], [place] Bilirubin [Mass/Vol] 0.6 mg/dL Normal 0.3-1.0 [facility] Comment on above: Order Comment: No: D o not add to previous draw Performed By: #### 1 0070, 68875, 79919, 81974 #### [facility] [address] [place] [address], [place] Bilirubin.direct [Mass/Vol] 0.1 mg/dL Normal 0.0-0.2 [facility] Comment on above: Order Comment: No: D o not add to previous draw Performed By: #### 1 0070, 06484, 19241, 49408 #### [facility] [address] [place] [address], [place] Protein [Mass/Vol] 5.3 g/dL Low 6.0-8.3 [facility] Comment on above: Order Comment: No: D o not add to previous draw Performed By: #### 1 0070, 85581, 11295, 49010 #### [facility] [address] [place] [address], [place] POC GLUCOSE LABon 07-25-2021 Glucose [Mass/Vol] 388 mg/dL High 70-100 [facility] Comment on above: Performed By: #### 1 0070, 17236, 97681, 76359 #### [facility] [address] [place] [address], [place] Glucose [Mass/Vol] 173 mg/dL High 70-100 [facility] Comment on above: Performed By: #### 8 5499 #### [facility] [address] [place] [address], [place] Glucose [Mass/Vol] 178 mg/dL High 70-100 [facility] Comment on above: Performed By: #### 8 8479 #### [facility] [address] Glucose [Mass/Vol] 106 mg/dL High 70-100 [facility] Comment on above: Performed By: #### 1 69, 60177, 96277, 28822 #### [facility] [address] [facility] [address] PROTHROMBIN TIMEon 10-20-202 1 INR Coag (PPP) [Relative time] 1.30 {INR} High 0.91-1.16 [facility] Comment on above: Order Comment: No: D o not add to previous draw Result Comment: ACCC P RECOMMENDED INR FOR WARFARIN THERAPY ----- ------- CONDITION INR PROPHYLAXIS OF VENOUS THROMBOSIS 2-3 (HIGH-RISK SURGERY) TREATMENT OF VENOUS THROMBOSIS 2-3 TREATMENT OF PULMONARY EMBOLISM 2-3 PREVENTION OF SYSTEMIC EMBOLISM: 2-3 ACUTE MYOCARDIAL INFARCTION TISSUE HEART VALVES VALVULAR HEART DISEASE ATRIAL FIBRILLATION RECURRENT SYSTEMIC EMBOLISM MECHANICAL HEART VALVE 2.5-3.5 FROM: ORAL ANTICOAGULANTS. MECHANISM OF ACTION, CLINICAL EFFECTIVENESS, AND OPTIMAL THERAPEUTIC RANGE. CHEST 1995;108:231S-246S. Performed By: #### 1 0, 39815, 89104, 78855 #### [facility] [address] [place] [address], [facility] PT Coag (PPP) [Time] 16.2 s High 12.3-14.8 [facility] Comment on above: Order Comment: No: D o not add to previous draw Result Comment: ALL RESULTS MUST BE INTERPRETED WITH RESPECT TO BLOOD DRAWING ARTIFACT OR DILUTION ERROR OF ANTICOAGULANT AT THE TIME OF SAMPLING. Performed By: #### 1 0070, 82701, 59280, 54931 #### [facility] [address] [place] [address], [facility] UFH HEPARIN ASSAYon 07-25-20 UNFRACTIONATED HEPARIN <0.10 Critically low 0.30-0.70 [facility] Comment on above: Result Comment: Resu lts called. Accur[place] 4D [place] [address], 25-Jul-2021. Patient is not on anything that would raise the uFH value per nurse Caitlin. Rivaroxaban and Apixaban will interfere with the anti Xa assay used to monitor UFH and LMWH. Performed By: #### 1 0070, 29303, 08952, 50057 #### [facility] [address] [place] [address], [facility] UNFRACTIONATED HEPARIN <0.10 Critically low 0.30-0.70 [facility] Comment on above: Result Comment: Resu lt checked and called. Accurately read back by Caitlin Koch RN at 1024 Rivaroxaban and Apixaban will interfere with the anti Xa assay used to monitor UFH and LMWH. Performed By: #### 1 0070, 56768, 43057, 56725 #### [facility] [address] [place] [address], [facility] BASIC METABOLIC PANELon 07-06 Calcium [Mass/Vol] 8.7 mg/dL Normal 8.6-10.3 [facility] Comment on above: Order Comment: No: D o not add to previous draw Performed By: #### 0 0071, 50684 #### [facility] [address] [place] [address], [facility] Chloride [Moles/Vol] 105 mmol/L Normal 98-107 [facility] Comment on above: Order Comment: No: D o not add to previous draw Performed By: #### 0 0071, 86477 #### [facility] [address] [place] [address], [place] CO2 [Moles/Vol] 30 mmol/L Normal 21-31 [facility] Comment on above: Order Comment: No: D o not add to previous draw Performed By: #### 0 0071, 14474 #### [facility] [address] [place] [address], [facility] Creatinine [Mass/Vol] 1.52 mg/dL High 0.70-1.30 [facility] Comment on above: Order Comment: No: D o not add to previous draw Performed By: #### 0 0071, 93372 #### [facility] [address] [place] [address], [facility] eGFR- 57 ml/min/1.73sq m Abnormal >60 [facility] Comment on above: Order Comment: No: D o not add to previous draw Performed By: #### 0 0071, 96629 #### [facility] [address] [place] [address], [facility] eGFR- non- 47 ml/min/1.73sq m Abnormal >60 [facility] Comment on above: Order Comment: No: D o not add to previous draw Performed By: #### 0 0071, 61421 #### [facility] [address] [place] [address], [place] Glucose [Mass/Vol] 331 mg/dL High 70-100 [facility] Comment on above: Order Comment: No: D o not add to previous draw Performed By: #### 0 0071, 51804 #### [facility] [address] [place] [address], [place] Potassium [Moles/Vol] 4.3 mmol/L Normal 3.5-5.1 [facility] Comment on above: Order Comment: No: D o not add to previous draw Performed By: #### 0 0071, 54138 #### [facility] [address] [place] [address], [place] Sodium [Moles/Vol] 139 mmol/L Normal 136-145 [facility] Comment on above: Order Comment: No: D o not add to previous draw Performed By: #### 0 0071, 56074 #### [facility] [address] [place] [address], [facility] Urea nitrogen [Mass/Vol] 26 mg/dL High 7-25 [facility] Comment on above: Order Comment: No: D o not add to previous draw Performed By: #### 0 0071, 19797 #### [facility] [address] CBC COMPLETE BLOOD COUNTon Erythrocyte distribution width (RBC) [Ratio] 13.2 % Normal 11.5-15.0 [facility] Comment on above: Order Comment: No: D o not add to previous draw Performed By: #### 1 0070, 75948, 38914, 44401 #### [facility] [address] Hematocrit (Bld) [Volume fraction] 42.9 % Normal 39.0-50.0 [facility] Comment on above: Order Comment: No: D o not add to previous draw Performed By: #### 1 0070, 35061, 98065, 40948 #### [facility] [address] [place] [address], [facility] Hemoglobin (Bld) [Mass/Vol] 13.7 g/dL Normal 13.0-17.0 [facility] Comment on above: Order Comment: No: D o not add to previous draw Performed By: #### 1 0070, 26105, 65104, 93791 #### [facility] [address] [place] [id number], [facility] MCH (RBC) [Entitic mass] 30.9 pg Normal 27.0-33.0 [facility] Comment on above: Order Comment: No: D o not add to previous draw Performed By: #### 1 0070, 74967, 20989, 26602 #### [facility] [address] [facility] MCHC (RBC) [Mass/Vol] 31.9 g/dL Low 32.0-35.0 [facility] Comment on above: Order Comment: No: D o not add to previous draw Performed By: #### 1 0070, 49154, 40051, 59265 #### [facility] [address] [facility] [place] [place] [address], [facility] MCV (RBC) [Entitic vol] 96.6 fL Normal 82.0-98.0 [facility] Comment on above: Order Comment: No: D o not add to previous draw Performed By: #### 1 0070, 61224, 95270, 62560 #### [facility] [address] [place] [address], [facility] Nucleated RBC/100 WBC (Bld) [Ratio] 0 % Normal 0-0 [facility] Comment on above: Order Comment: No: D o not add to previous draw Performed By: #### 1 0070, 71509, 72512, 14491 #### [facility] [address] [place] [address], [facility] PLAT CNT 184 10*3/uL Normal 150-400 [facility] Comment on above: Order Comment: No: D o not add to previous draw Performed By: #### 1 0070, 22311, 33485, 71494 #### [facility] [address] [place] [address], [facility] RBC (Bld) [#/Vol] 4.44 10*6/uL Normal 4.20-5.70 [facility] Comment on above: Order Comment: No: D o not add to previous draw Performed By: #### 1 0070, 43119, 74150, 74124 #### [facility] [address] [facility] [place] [address], [facility] WBC (Bld) [#/Vol] 8.42 10*3/uL Normal 4.00-10.60 [facility] Comment on above: Order Comment: No: D o not add to previous draw Performed By: #### 1 0070, 82437, 78035, 85268 #### [address] ERCPon 07-24-2021 ERCP [facility] Department of Radiology [address] [place] [id number] Patient Name: ANDRY PIERRE : 1960 Sex: M Age: Race: White Pt. Location: [address] [place] [address] Patient Status: I Ordered Date: 07/24/2021 7:00:00 AM Completed Date: 07/24/2021 07:31 PM Requesting Provider: AMY REMY Attending Provider: AMY REMY Report Copy To: Signs & Symptoms: ERCP History: Comments: ERCP Exam: ERCP ERCP 07/24/2021 7:31 PM CLINICAL INDICATIONS: ERCP TECH COMMENTS:ERCP FL time 7.46 minutes. 470.59 mGy. # of images 11 + Dose. HFW COMPARISON: None. FINDINGS: Fluoroscopic guidance for ERCP IMPRESSION: Fluoroscopic guidance for ERCP Please see the GI procedure note for further details. Electronically signed: Khoa Chahal. Transcribed by: [email or web address], User Resident: Electronically Signed by: KHOA CHAHAL @ 07/25/2021 08:48 AM Normal [facility] Comment on above: Order Comment: ERCP Endoscopy Reporton Endoscopy Report MR#: [id number] [facility] Pt. Name: Andry Pierre Surgery Date: 07/24/2021 Room #: 4CD [id number] Date of : 1960 PROCEDURE NOTE ATTENDING: Amy Remy M.D. ENGINEER STATION MAINLINE: Cyrus Decker MD PROCEDURE: ERCP with biliary sphincterotomy, balloon sweep, and stone removal. INDICATION: This is a 60-year-old male who presented with epigastric pain and underwent CT abdomen and pelvis and was noted to have a distal CBD stone. ERCP was indicated for stone removal. Of note, the patient also has a history of peptic ulcer about 2 months ago. ANESTHESIA: General anesthesia. CONSENT: Informed consent was obtained after explaining the risks including bleeding, perforation, reaction to medication, aspiration, arrhythmia, pancreatitis (5%), surgery, and prolonged hospitalization, benefits, and alternatives to the patient. The patient verbalized understanding and agreed to proceed with procedure DESCRIPTION OF PROCEDURE: After general anesthesia was administered, the patient was placed in semiprone position. Oxygen and cardiac monitoring equipment were attached. The patient's vital signs were continuously monitored throughout the procedure. An Olympus side-viewing duodenal scope was advanced under direct vision from the patient's oral cavity into the esophagus, stomach, 1st and 2nd part of duodenum with no difficulties to the level of major papilla. An RX 44 sphincterotome loaded with 0.035 inch guidewire was then advanced to the level of major papilla and common bile duct was selectively cannulated. Initial cholangiogram showed a filling defect in distal CBD. Biliary sphincterotomy was performed. The sphincterotome was then removed and a 12-15 mm injecting below retrieval balloon catheter was then advanced over the guidewire into left intrahepatic and multiple balloon sweeps were performed and 1 CBD stone was removed. The final cholangiogram did not show any filling defect. The side-viewing scope was then removed along with the guidewire and the balloon. An Olympus adult gastroscope GIF-190 was advanced under direct vision from the patient's oral cavity into the esophagus, stomach, 1st and 2nd part of duodenum with no difficulties. The 1st and 2nd part of duodenum appeared normal. Endoscope was withdrawn into gastric antrum. Examination of gastric antrum was normal as well. On retroflexion, cardia and fundus appeared normal as well. The endoscope was withdrawn into the esophagus. 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 The rest of the esophageal examination was normal. Endoscope was then withdrawn out of the patient's oral cavity. There were no immediate complications. The patient tolerated the procedure well. IMPRESSION: 1. Filling defect in distal CBD on initial cholangiogram. Biliary sphincterotomy was performed by using 12-15 mm injecting below retrieval balloon catheter. Multiple balloon sweeps were performed and 1 stone was removed. The final cholangiogram did not show any filling defect. 2. Normal 1st and 2nd part of duodenum. 3. Normal gastric mucosa. No evidence of gastric ulcer. 4. 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 The examination of the rest of the esophageal mucosa was unremarkable. RECOMMENDATIONS: 1. N.p.o. today. 2. Consider cholecystectomy. Electronically Signed by: Amy Remy M.D. 08/09/2021 06:35 P Amy Remy M.D. I was present for the entire procedure from insertion of the scope until it was withdrawn. Date Dict: 07/24/2021/07:27 P/Cyrus Decker MD Date Trans: 07/24/2021 09:24 P/michaela [id number] cc: Luis Mccormick M.D. [address] [facility] [id number] Normal [facility] LIVER BATTERYon 07-24-2021 Albumin [Mass/Vol] 3.3 g/dL Low 3.5-5.7 [facility] Comment on above: Order Comment: No: D o not add to previous draw Performed By: #### 0 0071, [id number] #### [facility] [address] [place] [address], [facility] ALKALINE PHOSPH 106 IU/L High 34-104 [facility] Comment on above: Order Comment: No: D o not add to previous draw Performed By: #### 0 0071, 91046 #### [facility] [address] [place] [address], [place] ALT [Catalytic activity/Vol] 26 U/L Normal 7-52 [facility] Comment on above: Order Comment: No: D o not add to previous draw Performed By: #### 0 0071, [id number] #### [facility] [address] [place] [address], [place] AST [Catalytic activity/Vol] 17 U/L Normal 13-39 [facility] Comment on above: Order Comment: No: D o not add to previous draw Performed By: #### 0 0071, [id number] #### [facility] [address] [place] [address], [place] Bilirubin [Mass/Vol] 0.3 mg/dL Normal 0.3-1.0 [facility] Comment on above: Order Comment: No: D o not add to previous draw Performed By: #### 0 0071, [id number] #### [facility] [address] [place] [address], [place] Bilirubin.direct [Mass/Vol] 0.0 mg/dL Normal 0.0-0.2 [facility] Comment on above: Order Comment: No: D o not add to previous draw Performed By: #### 0 0071, 79059 #### [facility] [address] [place] [address], [place] Protein [Mass/Vol] 6.1 g/dL Normal 6.0-8.3 [facility] Comment on above: Order Comment: No: D o not add to previous draw Performed By: #### 0 0071, 16941 #### [facility] [address] [place] [address], [place] POC GLUCOSE LABon 07-24-2021 Glucose [Mass/Vol] 89 mg/dL Normal 70-100 [facility] Comment on above: Performed By: #### 8 [id number] #### [facility] [address] [place] [address], [place] Glucose [Mass/Vol] 89 mg/dL Normal 70-100 [facility] Comment on above: Performed By: #### 1 0070, 15753, 30544, 46611 #### [facility] [address] [place] [address], [place] Glucose [Mass/Vol] 166 mg/dL High 70-100 [facility] Comment on above: Performed By: #### 8 [id number] #### [facility] [address] [place] [address], [place] Glucose [Mass/Vol] 391 mg/dL High 70-100 [facility] Comment on above: Performed By: #### 8 [id number] #### [facility] [address] [place] [address], [facility] POC SARS COV2 ANTIGEN NEGATI VEon 07-24-2021 POC SARS COV2 ANTIGEN NEG Negative Normal NEGATIVE [facility] Comment on above: Result Comment: Nega tive results from patients with symptom onset beyond seven days, should be treated presumptive and confirmation with a molecular assay, if necessary, for patient management, may be performed. Negative results do not rule out SARS-CoV-2 infection and should not be used as the sole basis for treatment or patient management decisions, including infection control decisions. Negative results should be considered in the context of a patient?s recent exposures, history and the presence of clinical signs and symptoms consistent with COVID-19. The ImpervaNOW COVID-19 Ag Card is a lateral flow immunoassay intended for the qualitative detection of nucleocapsid protein antigen from SARS-CoV-2 in direct nasal swabs from individuals within the first seven days of symptom onset. Testing is limited to laboratories certified under the Clinical Laboratory Improvement Amendments of 1988 (CLIA), 42 U.S.C. ???263a, that meet the requirements to perform moderate, high or waived complexity tests. This test is authorized for use at the Point of Care (POC), i.e., in patient care settings operating under a CLIA Certificate of Waiver, Certificate of Compliance, or Certificate of Accreditation. Performed By: #### 8 [id number] #### [facility] [address] [facility] [address] PROTHROMBIN TIMEon INR Coag (PPP) [Relative time] 1.53 {INR} High 0.91-1.16 [facility] Comment on above: Order Comment: No: D o not add to previous draw Result Comment: ACCC P RECOMMENDED INR FOR WARFARIN THERAPY ----- ------- CONDITION INR PROPHYLAXIS OF VENOUS THROMBOSIS 2-3 (HIGH-RISK SURGERY) TREATMENT OF VENOUS THROMBOSIS 2-3 TREATMENT OF PULMONARY EMBOLISM 2-3 PREVENTION OF SYSTEMIC EMBOLISM: 2-3 ACUTE MYOCARDIAL INFARCTION TISSUE HEART VALVES VALVULAR HEART DISEASE ATRIAL FIBRILLATION RECURRENT SYSTEMIC EMBOLISM MECHANICAL HEART VALVE 2.5-3.5 FROM: ORAL ANTICOAGULANTS. MECHANISM OF ACTION, CLINICAL EFFECTIVENESS, AND OPTIMAL THERAPEUTIC RANGE. CHEST 1995;108:231S-246S. Performed By: #### 1 0070, 21054, 03233, 84537 #### [facility] [address] [facility] [place] [address], [facility] PT Coag (PPP) [Time] 18.3 s High 12.3-14.8 [facility] Comment on above: Order Comment: No: D o not add to previous draw Result Comment: ALL RESULTS MUST BE INTERPRETED WITH RESPECT TO BLOOD DRAWING ARTIFACT OR DILUTION ERROR OF ANTICOAGULANT AT THE TIME OF SAMPLING. Performed By: #### 1 0070, 96264, 96297, 21181 #### [facility] [address] [place] [id number], [facility] COMP METABOLIC PANELon 07-23 Albumin [Mass/Vol] 3.5 g/dL Normal 3.5-5.7 [facility] Comment on above: Order Comment: No: D o not add to previous draw Performed By: #### 8 [id number] #### [facility] [address] [place] [address], [facility] ALKALINE PHOSPH 122 IU/L High 34-104 [facility] Comment on above: Order Comment: No: D o not add to previous draw Performed By: #### 8 [id number] #### [facility] [address] [place] [address], [place] ALT [Catalytic activity/Vol] 32 U/L Normal 7-52 [facility] Comment on above: Order Comment: No: D o not add to previous draw Performed By: #### 8 [id number] #### [facility] [address] [place] [address], [place] AST [Catalytic activity/Vol] 22 U/L Normal 13-39 [facility] Comment on above: Order Comment: No: D o not add to previous draw Performed By: #### 8 [id number] #### [facility] [address] [place] [address], [place] Bilirubin [Mass/Vol] 0.4 mg/dL Normal 0.3-1.0 [facility] Comment on above: Order Comment: No: D o not add to previous draw Performed By: #### 8 [id number] #### [facility] [address] [place] [address], [place] Calcium [Mass/Vol] 8.5 mg/dL Low 8.6-10.3 [facility] Comment on above: Order Comment: No: D o not add to previous draw Performed By: #### 8 [id number] #### [facility] [address] [place] [address], [place] Chloride [Moles/Vol] 110 mmol/L High 98-107 [facility] Comment on above: Order Comment: No: D o not add to previous draw Performed By: #### 8 [id number] #### [facility] [address] [place] [address], [place] CO2 [Moles/Vol] 23 mmol/L Normal 21-31 [facility] Comment on above: Order Comment: No: D o not add to previous draw Performed By: #### 8 [id number] #### [facility] [address] [place] [address], [place] Creatinine [Mass/Vol] 1.33 mg/dL High 0.70-1.30 [facility] Comment on above: Order Comment: No: D o not add to previous draw Performed By: #### 8 [id number] #### [facility] [address] [place] [address], [place] eGFR- non- 55 ml/min/1.73sq m Abnormal >60 [facility] Comment on above: Order Comment: No: D o not add to previous draw Performed By: #### 8 [id number] #### [facility] [address] [place] [address], [place] GFR/1.73 sq M.predicted among blacks MDRD (S/P/Bld) [Vol rate/Area] mL/min/{1.73_m2} Normal >60 [facility] Comment on above: Order Comment: No: D o not add to previous draw Performed By: #### 8 [id number] #### [facility] [address] [place] [address], [place] Glucose [Mass/Vol] 198 mg/dL High 70-100 [facility] Comment on above: Order Comment: No: D o not add to previous draw Performed By: #### 8 [id number] #### [facility] [address] [place] [address], [place] Potassium [Moles/Vol] 3.5 mmol/L Normal 3.5-5.1 [facility] Comment on above: Order Comment: No: D o not add to previous draw Performed By: #### 8 [id number] #### [facility] [address] [place] [address], [place] Protein [Mass/Vol] 6.3 g/dL Normal 6.0-8.3 [facility] Comment on above: Order Comment: No: D o not add to previous draw Performed By: #### 8 [id number] #### [facility] [address] [place] [address], [place] Sodium [Moles/Vol] 142 mmol/L Normal 136-145 [facility] Comment on above: Order Comment: No: D o not add to previous draw Performed By: #### 8 [id number] #### [facility] [address] [place] [address], [place] Urea nitrogen [Mass/Vol] 25 mg/dL Normal 7-25 [facility] Comment on above: Order Comment: No: D o not add to previous draw Performed By: #### 8 [id number] #### [facility] [address] [place] [address], [place] POC GLUCOSE LABon 07-23-2021 Glucose [Mass/Vol] 325 mg/dL High 70-100 [facility] Comment on above: Performed By: #### 8 [id number] #### [facility] [address] [place] [address], [place] Glucose [Mass/Vol] 290 mg/dL High 70-100 [facility] Comment on above: Performed By: #### 1 0070, 19224, 33315, 39972 #### [facility] [address] [place] [address], [place] Glucose [Mass/Vol] 253 mg/dL High 70-100 [facility] Comment on above: Performed By: #### 1 0070, 69181, 69873, 09592 #### [facility] [address] [place] [address], [place] Glucose [Mass/Vol] 211 mg/dL High 70-100 [facility] Comment on above: Performed By: #### 8 [id number] #### [facility] [address] [facility] [address] PROTHROMBIN TIMEon INR Coag (PPP) [Relative time] 1.92 {INR} High 0.91-1.16 [facility] Comment on above: Order Comment: Dirk wn Result Comment: ACCC P RECOMMENDED INR FOR WARFARIN THERAPY ----- ------- CONDITION INR PROPHYLAXIS OF VENOUS THROMBOSIS 2-3 (HIGH-RISK SURGERY) TREATMENT OF VENOUS THROMBOSIS 2-3 TREATMENT OF PULMONARY EMBOLISM 2-3 PREVENTION OF SYSTEMIC EMBOLISM: 2-3 ACUTE MYOCARDIAL INFARCTION TISSUE HEART VALVES VALVULAR HEART DISEASE ATRIAL FIBRILLATION RECURRENT SYSTEMIC EMBOLISM MECHANICAL HEART VALVE 2.5-3.5 FROM: ORAL ANTICOAGULANTS. MECHANISM OF ACTION, CLINICAL EFFECTIVENESS, AND OPTIMAL THERAPEUTIC RANGE. CHEST 1995;108:231S-246S. Performed By: #### 8 [id number] #### [facility] [address] [facility] [place] [address], [facility] PT Coag (PPP) [Time] 21.9 s High 12.3-14.8 [facility] Comment on above: Order Comment: Unkno wn Result Comment: ALL RESULTS MUST BE INTERPRETED WITH RESPECT TO BLOOD DRAWING ARTIFACT OR DILUTION ERROR OF ANTICOAGULANT AT THE TIME OF SAMPLING. Performed By: #### 8 [id number] #### [facility] [address] [place] [address], [facility] APTTon 07-22-2021 aPTT Coag (Bld) [Time] 37.1 s High 25.0-35.0 [facility] Comment on above: Order Comment: No: D o not add to previous draw Result Comment: ALL RESULTS MUST BE INTERPRETED WITH RESPECT TO BLOOD DRAWING ARTIFACT OR DILUTION ERROR OF ANTICOAGULANT AT THE TIME OF SAMPLING. THE APTT SHOULD NOT BE USED TO MONITOR UNFRACTIONATED HEPARIN THERAPY, THIS LABORATORY NO LONGER HAS AN ESTABLISHED THERAPEUTIC RANGE BASED ON THE APTT. IT IS RECOMMENDED THAT THE [facility] - HEPARIN ASSAY (ANTI-XA ACTIVITY) BE USED FOR THIS PURPOSE. Performed By: #### 1 0070, 41496, 26183, 71604 #### [facility] [address] [place] [address], [facility] BASIC METABOLIC PANELon 10-1 Calcium [Mass/Vol] 8.3 mg/dL Low 8.6-10.3 [facility] Comment on above: Order Comment: No: D o not add to previous draw Performed By: #### 8 [id number] #### [facility] [address] [place] [id number], [facility] Chloride [Moles/Vol] 109 mmol/L High 98-107 [facility] Comment on above: Order Comment: No: D o not add to previous draw Performed By: #### 8 [id number] #### [facility] [address] [place] [address], [facility] CO2 [Moles/Vol] 28 mmol/L Normal 21-31 [facility] Comment on above: Order Comment: No: D o not add to previous draw Performed By: #### 8 [id number] #### [facility] [address] [place] [address], [facility] Creatinine [Mass/Vol] 1.48 mg/dL High 0.70-1.30 [facility] Comment on above: Order Comment: No: D o not add to previous draw Performed By: #### 8 [id number] #### [facility] [address] [place] [address], [facility] eGFR- 59 ml/min/1.73sq m Abnormal >60 [facility] Comment on above: Order Comment: No: D o not add to previous draw Performed By: #### 8 [id number] #### [facility] [address] [place] [address], [facility] eGFR- non- 48 ml/min/1.73sq m Abnormal >60 [facility] Comment on above: Order Comment: No: D o not add to previous draw Performed By: #### 8 [id number] #### [facility] [address] [place] [address], [place] Glucose [Mass/Vol] 216 mg/dL High 70-100 [facility] Comment on above: Order Comment: No: D o not add to previous draw Performed By: #### 8 [id number] #### [facility] [address] [place] [address], [place] Potassium [Moles/Vol] 4.6 mmol/L Normal 3.5-5.1 [facility] Comment on above: Order Comment: No: D o not add to previous draw Performed By: #### 8 [id number] #### [facility] [address] [place] [address], [place] Sodium [Moles/Vol] 141 mmol/L Normal 136-145 [facility] Comment on above: Order Comment: No: D o not add to previous draw Performed By: #### 8 [id number] #### [facility] [address] [place] [address], [facility] Urea nitrogen [Mass/Vol] 26 mg/dL High 7-25 [facility] Comment on above: Order Comment: No: D o not add to previous draw Performed By: #### 8 [id number] #### [facility] [address] [place] [address], [facility] CBC COMPLETE BLOOD COUNTon Erythrocyte distribution width (RBC) [Ratio] 13.2 % Normal 11.5-15.0 [facility] Comment on above: Order Comment: No: D o not add to previous draw Performed By: #### 8 [id number] #### [facility] [address] [place] [address], [facility] Hematocrit (Bld) [Volume fraction] 45.8 % Normal 39.0-50.0 [facility] Comment on above: Order Comment: No: D o not add to previous draw Performed By: #### 8 [id number] #### [facility] [address] [place] [address], [facility] Hemoglobin (Bld) [Mass/Vol] 14.8 g/dL Normal 13.0-17.0 [facility] Comment on above: Order Comment: No: D o not add to previous draw Performed By: #### 8 [id number] #### [facility] [address] [place] [address], [facility] MCH (RBC) [Entitic mass] 31.0 pg Normal 27.0-33.0 [facility] Comment on above: Order Comment: No: D o not add to previous draw Performed By: #### 8 [id number] #### [facility] [address] [place] [address], [facility] MCHC (RBC) [Mass/Vol] 32.3 g/dL Normal 32.0-35.0 [facility] Comment on above: Order Comment: No: D o not add to previous draw Performed By: #### 8 [id number] #### [facility] [address] [place] [address], [facility] MCV (RBC) [Entitic vol] 95.8 fL Normal 82.0-98.0 [facility] Comment on above: Order Comment: No: D o not add to previous draw Performed By: #### 8 [id number] #### [facility] [address] [place] [address], [facility] Nucleated RBC/100 WBC (Bld) [Ratio] 0 % Normal 0-0 [facility] Comment on above: Order Comment: No: D o not add to previous draw Performed By: #### 8 [id number] #### [facility] [address] [place] [address], [place] PLAT CNT 209 10*3/uL Normal 150-400 [facility] Comment on above: Order Comment: No: D o not add to previous draw Performed By: #### 8 [id number] #### [facility] [address] [place] [address], [place] RBC (Bld) [#/Vol] 4.78 10*6/uL Normal 4.20-5.70 [facility] Comment on above: Order Comment: No: D o not add to previous draw Performed By: #### 8 [id number] #### [facility] [address] [place] [address], [facility] WBC (Bld) [#/Vol] 8.89 10*3/uL Normal 4.00-10.60 [facility] Comment on above: Order Comment: No: D o not add to previous draw Performed By: #### 8 [id number] #### [facility] [address] [place] [address], [facility] LIVER BATTERYon 07-22-2021 Albumin [Mass/Vol] 3.2 g/dL Low 3.5-5.7 [facility] Comment on above: Performed By: #### 8 [id number] #### [facility] [address] [place] [address], [place] ALKALINE PHOSPH 111 IU/L High 34-104 [facility] Comment on above: Performed By: #### 8 [id number] #### [facility] [address] [place] [address], [place] ALT [Catalytic activity/Vol] 23 U/L Normal 7-52 [facility] Comment on above: Performed By: #### 8 [id number] #### [facility] [address] [place] [address], [place] AST [Catalytic activity/Vol] 17 U/L Normal 13-39 [facility] Comment on above: Performed By: #### 8 [id number] #### [facility] [address] [place] [address], [place] Bilirubin [Mass/Vol] 0.3 mg/dL Normal 0.3-1.0 [facility] Comment on above: Performed By: #### 8 [id number] #### [facility] [address] [place] [address], [place] Bilirubin.direct [Mass/Vol] 0.0 mg/dL Normal 0.0-0.2 [facility] Comment on above: Performed By: #### 8 [id number] #### [facility] [address] [place] [address], [place] Protein [Mass/Vol] 5.5 g/dL Low 6.0-8.3 [facility] Comment on above: Performed By: #### 8 [id number] #### [facility] [address] [place] [address], [place] MAGNESIUM BLOODon 07-22-2021 Magnesium [Mass/Vol] 2.0 mg/dL Normal 1.9-2.7 [facility] Comment on above: Order Comment: No: D o not add to previous draw Performed By: #### 8 [id number] #### [facility] [address] [place] [address], [place] PHOSPHORUS BLOODon Phosphate [Mass/Vol] 3.0 mg/dL Normal 2.5-5.0 [facility] Comment on above: Order Comment: No: D o not add to previous draw Performed By: #### 8 [id number] #### [facility] [address] [place] [address], [place] POC GLUCOSE LABon 07-22-2021 Glucose [Mass/Vol] 223 mg/dL High 70-100 [facility] Comment on above: Performed By: #### 1 0070, 73977, 86705, 19870 #### [facility] [address] [place] [address], [place] Glucose [Mass/Vol] 222 mg/dL High 70-100 [facility] Comment on above: Performed By: #### 8 [id number] #### [facility] [address] [place] [address], [facility] Glucose [Mass/Vol] 245 mg/dL High 70-100 [facility] Comment on above: Performed By: #### 8 [id number] #### [facility] [address] [place] [address], [facility] Glucose [Mass/Vol] 202 mg/dL High 70-100 [facility] Comment on above: Performed By: #### 1 0070, 93822, 16098, 12171 #### [facility] [address] [facility] [address] PROTHROMBIN TIMEon 1 INR Coag (PPP) [Relative time] 2.27 {INR} High 0.91-1.16 [facility] Comment on above: Order Comment: No: D o not add to previous draw Result Comment: ACCC P RECOMMENDED INR FOR WARFARIN THERAPY ----- ------- CONDITION INR PROPHYLAXIS OF VENOUS THROMBOSIS 2-3 (HIGH-RISK SURGERY) TREATMENT OF VENOUS THROMBOSIS 2-3 TREATMENT OF PULMONARY EMBOLISM 2-3 PREVENTION OF SYSTEMIC EMBOLISM: 2-3 ACUTE MYOCARDIAL INFARCTION TISSUE HEART VALVES VALVULAR HEART DISEASE ATRIAL FIBRILLATION RECURRENT SYSTEMIC EMBOLISM MECHANICAL HEART VALVE 2.5-3.5 FROM: ORAL ANTICOAGULANTS. MECHANISM OF ACTION, CLINICAL EFFECTIVENESS, AND OPTIMAL THERAPEUTIC RANGE. CHEST 1995;108:231S-246S. Performed By: #### 1 0070, 52395, 72810, 69247 #### [facility] [address] [place] [id number], [place] PT Coag (PPP) [Time] 24.9 s High 12.3-14.8 [facility] Comment on above: Order Comment: No: D o not add to previous draw Result Comment: ALL RESULTS MUST BE INTERPRETED WITH RESPECT TO BLOOD DRAWING ARTIFACT OR DILUTION ERROR OF ANTICOAGULANT AT THE TIME OF SAMPLING. Performed By: #### 1 [id number], [id number], [id number], [id number] #### [facility] [address] [place] [address], [place] Basic Metabolic Panelon 10-1 Calcium [Mass/Vol] 9.4 mg/dL Normal 8.2-10.2 [facility] Comment on above: Performed By: #### H EPATIC, CBC, LIPASE, BMP #### [facility] [address] Chloride [Moles/Vol] 103 mmol/L Normal 95-114 [facility] Comment on above: Performed By: #### H EPATIC, CBC, LIPASE, BMP #### [facility] [address] CO2 [Moles/Vol] 26.9 mmol/L Normal 22.0-30.0 [facility] Comment on above: Performed By: #### H EPATIC, CBC, LIPASE, BMP #### [facility] [address] [place] [id number] [place] Creatinine [Mass/Vol] 1.66 mg/dL High 0.64-1.27 [facility] Comment on above: Performed By: #### H EPATIC, CBC, LIPASE, BMP #### [facility] [address] [place] [address] [place] Creatinine Clr Calc Pharmacy 68.90 [facility] Comment on above: Performed By: #### H EPATIC, CBC, LIPASE, BMP #### [facility] [address] [place] [id number] [place] Estimated GFR ( Beata 51 [facility] Comment on above: Result Comment: GFR estimated reference range: According to KDOQI guidelines, <60 ml/min/1.73m2 is sufficient to diagnose a patient with chronic kidney disease. Performed By: #### H EPATIC, CBC, LIPASE, BMP #### [address] Estimated GFR (Non- Am 42 Normal [facility] Comment on above: Performed By: #### H EPATIC, CBC, LIPASE, BMP #### [address] Glucose [Mass/Vol] 442 mg/dL High 70-100 [facility] Comment on above: Result Comment: [facility] Glucose Reference Range is dependent on time and content of last meal. Glucose of more than 200 mg/dL in a nonstressed, ambulatory subject supports the diagnosis of Diabetes Mellitus. ADA recommended reference range Performed By: #### H EPATIC, CBC, LIPASE, BMP #### [address] Potassium [Moles/Vol] 4.1 mmol/L Normal 3.5-5.1 [facility] Comment on above: Performed By: #### H EPATIC, CBC, LIPASE, BMP #### [address] Sodium [Moles/Vol] 140 mmol/L Normal 136-146 [facility] Comment on above: Performed By: #### H EPATIC, CBC, LIPASE, BMP #### [address] Urea nitrogen [Mass/Vol] 29 mg/dL High 9-23 [facility] Comment on above: Performed By: #### H EPATIC, CBC, LIPASE, BMP #### [address] COVID-19 Antigenon 1 COVID-19 Antigen Healthcare Worker?: Y Tamera Reference Tamera Reference Negative SARS-CoV+SARS-CoV-2 (COVID-19) Ag [Presence] in Respiratory specimen by Rapid immunoassay Negative for SARS Antigen by GIOVANNA COVID19 Blank Space Tamera Disclaimer Negative results, from patients with symptom Tamera Disclaimer onset beyond five days, should be treated as Tamera Disclaimer presumptive and confirmation with a molecular Tamera Disclaimer assay, if necessary, for patient management, Tamera Disclaimer may be performed. Negative results do not rule Tamera Disclaimer out COVID-19 and should not be used as the sole Tamera Disclaimer basis for treatment or patient management Tamera Disclaimer decisions, including infection control decisions. Tamera Disclaimer Negative results should be considered in the Tamera Disclaimer context of a patient's recent exposures, history Tamera Disclaimer and the presence of clinical signs and symptoms Tamera Disclaimer consistent with COVID-19. COVID19 Blank Space Tamera Disclaimer The Tamera SARS Antigen GIOVANNA does not differentiate Tamera Disclaimer between SARS-CoV and SARS-CoV-2. COVID19 Blank Space Tamera Disclaimer This test was developed and its performance Tamera Disclaimer characteristic determined by [employer] and Tamera Disclaimer validated at [facility]. This Tamera Disclaimer test has not been FDA cleared or approved. This Tamera Disclaimer test has been authorized by FDA under an Emergency Use Tamera Disclaimer Authorization (EUA). This test has been validated Tamera Disclaimer in accordance with the FDA's Guidance Document (Policy Tamera Disclaimer for Diagnostics Testing in Laboratories Certified to Tamera Disclaimer Perform High Complexity Testing under CLIA prior to Tamera Disclaimer Emergency Use Authorization for Coronavirus Tamera Disclaimer isease-2018 during the Public Health Emergency) Tamera Disclaimer issued on January 06, 2020. This test is only authorized Tamera Disclaimer for the duration of time the declaration that Tamera Disclaimer circumstances exist justifying the authorization of Tamera Disclaimer the emergency use of in vitro diagnostic tests for Tamera Disclaimer detection of SARS-CoV-2 virus and/or diagnosis of Tamera Disclaimer COVID-19 infection under section 564(b)(1) of the Tamera Disclaimer Act, 21 U.S.C. 360bbb-3(b)(1), unless the Tamera Disclaimer authorization is terminated or revoked sooner. PERFORMED BY: [place] [address] PATHOLOGIST PELLETIZER TENDER TO [place]ADISON M.D. Normal [facility] Comment on above: Performed By: #### C OVID-19 TAMERA, SOFIANEG, COVID 19 [facility] #### [place] [id number] [facility] COVID-19 [facility] 07-21-2021 SARS-CoV-2 (COVID-19) RNA EMMY+probe Ql (Unsp spec) Negative Normal Negative [facility] Comment on above: Order Comment: Healt hcare Worker?: Y Result Comment: Testing for SARS-CoV-2 by RT-PCR This test was developed and its performance characteristics determined by Elizabeth, [employer] ([employer]) and validated at the [facility]. This test has not been FDA cleared or approved. This test has been authorized by FDA under an Emergency Use Authorization (EUA). This test has been validated in accordance with the FDA's Guidance Document (Policy for Diagnostics Testing in Laboratories Certified to Perform High Complexity Testing under CLIA prior to Emergency Use Authorization for Coronavirus Disease-2019 during the Public Health Emergency) issued on January 06, 2020. This test is only authorized for the duration of time the declaration that circumstances exist justifying the authorization of the emergency use of in vitro diagnostic tests for detection of SARS-CoV-2 virus and/or diagnosis of COVID-19 infection under section 564(b)(1) of the Act, 21 U.S.C. 360bbb-3(b)(1), unless the authorization is terminated or revoked sooner. PERFORMED BY: [place] [address] PATHOLOGIST PELLETIZER TENDER TO [place]ADISON M.D. Performed By: #### C OVID-19 TAMERA, SOFIANEG, COVID 19 [facility] #### [place] [id number] [facility] CT abdomen pelvis wo conon 1 CT abdomen pelvis wo con [facility] Main [place] [address] [place] [address] CT Scan Report Signed Patient: Andry Pierre MR#: [id number] 28 : 1960 Acct:[id number] Age/Sex: 60 / M ADM Date: 07/21/21 Loc: Room: [address] [place] [address] Type: ADM INOo Attending Dr: Feliciano Hernandez MD Ordering Provider: Michael Silva Jr, MD Date of Service: 07/21/21 CT/CT abdomen pelvis wo con: R abd pain, vomiting Copies to: MD Michael Garvey Jr, MD CT abdomen and pelvis 07/21/2021. CLINICAL DATA: Abdominal pain. TECHNIQUE: CT of the abdomen and pelvis was performed without contrast. Axial, sagittal, and coronal reconstructions were created and reviewed. This CT exam was performed using one or more of the following dose reduction techniques: Automated exposure control, adjustment of the mA and/or kV according to patient size, or use of iterative reconstruction technique. COMPARISON: None. FINDINGS: Images of the lower chest are unremarkable. The liver, spleen, pancreas, right and left kidneys, and both adrenal glands appear unremarkable. The wall the gallbladder appears mildly thickened, however, this finding is likely related to underdistention. There is cholelithiasis. The common bile duct is dilated. There appears to be a 6 mm calculus in the distal common duct. The urinary bladder appears unremarkable. No acute intestinal abnormality is identified. The appendix is not seen, however, there are no findings suspicious for acute appendicitis. No free intra-abdominal air or ascites is visualized. There are findings in the anterior abdominal wall presumably related to medicinal injections. CT/CT abdomen pelvis wo con IMPRESSION: 1. Cholelithiasis and probable choledocholithiasis. 2. Dilated common bile duct. Impression dictated by: Duke Ricks Jr., M.D.07/21/2021 9:15 AM Dictation Location: [place] [address] Transcribed By: [facility] 07/21/21914 Dictated By: Duke Ricks Jr, MD 07/21/21903 Signed By: 07/21/21914 Normal [facility] Coagulation Profileon 2020 aPTT Coag (Bld) [Time] 37.9 s High 25.1-36.5 [facility] Comment on above: Result Comment: PERF ORMED BY: [place] [address] PATHOLOGIST PELLETIZER TENDER TO [place]ADISON M.D. Performed By: #### P P #### [address] INR Coag (PPP) [Relative time] 2.0 {INR} Normal [facility] Comment on above: Result Comment: INR Therapeutic Range A) Pre- and Peroperative OAT started two weeks before surgery. NOT HIP SURGERY: 1.5 - 2.5 HIP SURGERY: 2 - 3 B) Primary and secondary prevention of venous THROMBOSIS: 2 - 3 C) Active venous thrombosis, pulmonary embolism and prevention of recurrent venous thrombosis: 2 - 3 D) Prevention of arterial thromboembolism including patients with mechanical heart valves: 3 - 4.5 Performed By: #### P P #### [facility] [address] [place] [address] PT Coag (PPP) [Time] 22.5 s High 9.0-12.9 [facility] Comment on above: Performed By: #### P P #### [address] Complete Blood Count Auto Di ffon 07-21-2021 Basophils (Bld) [#/Vol] 0.1 10*3/uL Normal 0.0-0.2 [facility] Comment on above: Result Comment: PERF ORMED BY: [place] [address] PATHOLOGIST PELLETIZER TENDER TO [place]ADISON M.D. Performed By: #### H EPATIC, CBC, LIPASE, BMP #### [address] Basophils/100 WBC (Bld) 0.6 % Normal . [facility] Comment on above: Performed By: #### H EPATIC, CBC, LIPASE, BMP #### [address] Eosinophils (Bld) [#/Vol] 0.4 10*3/uL Normal 0.0-0.45 [facility] Comment on above: Performed By: #### H EPATIC, CBC, LIPASE, BMP #### [address] Eosinophils/100 WBC (Bld) 4.3 % Normal . [facility] Comment on above: Performed By: #### H EPATIC, CBC, LIPASE, BMP #### [address] Erythrocyte distribution width (RBC) [Ratio] 13.7 % Normal 12.0-14.8 [facility] Comment on above: Performed By: #### H EPATIC, CBC, LIPASE, BMP #### [address] Hematocrit (Bld) [Volume fraction] 45.9 % Normal 38.8-50.0 [facility] Comment on above: Performed By: #### H EPATIC, CBC, LIPASE, BMP #### [address] Hemoglobin (Bld) [Mass/Vol] 15.4 g/dL Normal 13.0-17.0 [facility] Comment on above: Performed By: #### H EPATIC, CBC, LIPASE, BMP #### [address] Lymphocytes (Bld) [#/Vol] 2.9 10*3/uL Normal 1.00-4.8 [facility] Comment on above: Performed By: #### H EPATIC, CBC, LIPASE, BMP #### [address] Lymphocytes/100 WBC (Bld) 28.4 % Normal . [facility] Comment on above: Performed By: #### H EPATIC, CBC, LIPASE, BMP #### [facility] [address] MCH (RBC) [Entitic mass] 32.0 pg Normal 27.5-35.2 [facility] Comment on above: Performed By: #### H EPATIC, CBC, LIPASE, BMP #### [address] MCV (RBC) [Entitic vol] 95.2 fL Normal 83.5-101 [facility] Comment on above: Performed By: #### H EPATIC, CBC, LIPASE, BMP #### [address] Mean Corpuscular HGB Conc 33.6 g/dL Normal 32.5-35.6 [facility] Comment on above: Performed By: #### H EPATIC, CBC, LIPASE, BMP #### [place] [address] [place] Monocytes (Bld) [#/Vol] 0.7 10*3/uL Normal 0.0-0.8 [facility] Comment on above: Performed By: #### H EPATIC, CBC, LIPASE, BMP #### [place] [address] [place] Monocytes/100 WBC (Bld) 6.7 % Normal . [facility] Comment on above: Performed By: #### H EPATIC, CBC, LIPASE, BMP #### [place] [address] [place] Neutrophils (Bld) [#/Vol] 6.0 10*3/uL Normal 1.8-7.7 [facility] Comment on above: Performed By: #### H EPATIC, CBC, LIPASE, BMP #### [address] Neutrophils/100 WBC (Bld) 60.0 % Normal . [facility] Comment on above: Performed By: #### H EPATIC, CBC, LIPASE, BMP #### [address] Nucleated RBC/100 WBC (Bld) [Ratio] 0.1 % Normal 0-0.5 [facility] Comment on above: Performed By: #### H EPATIC, CBC, LIPASE, BMP #### [address] Platelet mean volume (Bld) [Entitic vol] 8.7 fL Normal 6.6-10.1 [facility] Comment on above: Performed By: #### H EPATIC, CBC, LIPASE, BMP #### [address] Platelets (Bld) [#/Vol] 215 10*3/uL Normal 150-450 [facility] Comment on above: Performed By: #### H EPATIC, CBC, LIPASE, BMP #### [address] RBC (Bld) [#/Vol] 4.83 10*6/uL Normal 3.90-5.60 [facility] Comment on above: Performed By: #### H EPATIC, CBC, LIPASE, BMP #### [address] WBC (Bld) [#/Vol] 10.0 10*3/uL Normal 4.5-11.0 [facility] Comment on above: Performed By: #### H EPATIC, CBC, LIPASE, BMP #### [address] Glucose Poct Glucometerson 1 Commemt1 Glu2: Cleaned Meter Normal [facility] Comment on above: Result Comment: PERF ORMED BY: [place] [address] PATHOLOGIST PELLETIZER TENDER TO [place] M.D. Performed By: #### H EPATIC, CBC, LIPASE, BMP #### [address] Glucose [Mass/Vol] 267 mg/dL Normal [facility] Comment on above: Result Comment: [place] Glucose Reference Range is dependent on time and content of last meal. Glucose of more than 200 mg/dL in a nonstressed, ambulatory subject supports the diagnosis of Diabetes Mellitus. Performed By: #### H EPATIC, CBC, LIPASE, BMP #### [address] Commemt1 Glu2: Cleaned Meter [facility] Comment on above: Result Comment: PERF ORMED BY: [place] [address] PATHOLOGIST PELLETIZER TENDER TO [place] M.D. Performed By: #### H EPATIC, CBC, LIPASE, BMP #### [address] Glucose [Mass/Vol] 252 mg/dL Normal [facility] Comment on above: Result Comment: [place] [facility] Glucose Reference Range is dependent on time and content of last meal. Glucose of more than 200 mg/dL in a nonstressed, ambulatory subject supports the diagnosis of Diabetes Mellitus. Performed By: #### H EPATIC, CBC, LIPASE, BMP #### [address] Commemt1 Glu2: Cleaned Meter [facility] Comment on above: Result Comment: PERF ORMED BY: [place] [address] PATHOLOGIST PELLETIZER TENDER TO [place] M.D. Performed By: #### H EPATIC, CBC, LIPASE, BMP #### [address] Glucose [Mass/Vol] 100 mg/dL Normal [facility] Comment on above: Result Comment: [place] [facility] Glucose Reference Range is dependent on time and content of last meal. Glucose of more than 200 mg/dL in a nonstressed, ambulatory subject supports the diagnosis of Diabetes Mellitus. Performed By: #### H EPATIC, CBC, LIPASE, BMP #### [address] Glucose [Mass/Vol] 140 mg/dL Normal [facility] Comment on above: Result Comment: [facility] Glucose Reference Range is dependent on time and content of last meal. Glucose of more than 200 mg/dL in a nonstressed, ambulatory subject supports the diagnosis of Diabetes Mellitus. PERFORMED BY: [place] [address] PATHOLOGIST PELLETIZER TENDER TO [place] M.D. Performed By: #### H EPATIC, CBC, LIPASE, BMP #### [address] Hepatic Panelon 07-21-2021 Albumin [Mass/Vol] 3.5 g/dL Normal 3.2-5.5 [facility] Comment on above: Performed By: #### H EPATIC, CBC, LIPASE, BMP #### [address] Albumin/Globulin [Mass ratio] 1.1 {ratio} Normal [facility] Comment on above: Performed By: #### H EPATIC, CBC, LIPASE, BMP #### [address] ALP [Catalytic activity/Vol] 115 U/L High 32- [facility] Comment on above: Performed By: #### H EPATIC, CBC, LIPASE, BMP #### [address] ALT [Catalytic activity/Vol] 30 U/L Normal 10- [facility] Comment on above: Performed By: #### H EPATIC, CBC, LIPASE, BMP #### [address] AST [Catalytic activity/Vol] 19 U/L Normal 10- [facility] Comment on above: Performed By: #### H EPATIC, CBC, LIPASE, BMP #### [address] Bilirubin [Mass/Vol] 0.7 mg/dL Normal 0.3-1.2 [facility] Comment on above: Performed By: #### H EPATIC, CBC, LIPASE, BMP #### [facility] [address] Bilirubin,Indirect Not performed Normal [facility] Comment on above: Performed By: #### H EPATIC, CBC, LIPASE, BMP #### [facility] [address] Bilirubin.indirect [Mass/Vol] mg/dL Normal 0.0-0.4 [facility] Comment on above: Performed By: #### H EPATIC, CBC, LIPASE, BMP #### [facility] [address] Globulin (S) [Mass/Vol] 3.2 g/dL Normal [facility] Comment on above: Performed By: #### H EPATIC, CBC, LIPASE, BMP #### [address] Protein [Mass/Vol] 6.7 g/dL Normal 6.1-7.9 [facility] Comment on above: Performed By: #### H EPATIC, CBC, LIPASE, BMP #### [address] Lactic Acidon 07-21-2021 Lactate [Moles/Vol] 1.2 mmol/L Normal 0.5-2.2 [facility] Comment on above: Result Comment: PERF ORMED BY: [place] [address] PATHOLOGIST PELLETIZER TENDER TO [place] M.D. Performed By: #### L ACTIC #### [facility] [address] [place] [address] Lipaseon 07-21-2021 Lipase [Catalytic activity/Vol] 43.0 U/L Normal 22-51 [facility] Comment on above: Result Comment: PERF ORMED BY: [place] [address] PATHOLOGIST PELLETIZER TENDER TO [place] M.D. Performed By: #### H EPATIC, CBC, LIPASE, BMP #### [facility] [address] Tamera Ag Negativeon 07-21-20 Tamera Ag Negative Negative Normal Negative [facility] Comment on above: Result Comment: This is a duplicate Tamera SARS Antigen (GIOVANNA) result to be used for statistical tracking purpose only. PERFORMED BY: [place] [address] PATHOLOGIST PELLETIZER TENDER TO [place] M.D. Performed By: #### C OVID-19 TAMERA, SOFIANEG, COVID 19 [facility] #### [facility] [address] Urinalysison 07-21-2021 Appearance (U) Clear Normal Clear [facility] Comment on above: Order Comment: Name Collection Type:: Clean-Voided Midstream Performed By: #### U A #### [address] Bilirubin,Urine Negative Normal Negative [facility] Comment on above: Order Comment: Name Collection Type:: Clean-Voided Midstream Performed By: #### U A #### [address] Color (U) Yellow Normal Yellow [facility] Comment on above: Order Comment: Name Collection Type:: Clean-Voided Midstream Performed By: #### U A #### [facility] [address] [place] [address] Glucose Ql (U) >=1000 High Normal [facility] Comment on above: Order Comment: Name Collection Type:: Clean-Voided Midstream Performed By: #### U A #### [facility] [address] [place] [address] [place] Ketones Ql (U) Negative Normal Negative [facility] Comment on above: Order Comment: Name Collection Type:: Clean-Voided Midstream Performed By: #### U A #### [facility] [address] [place] [address] Leukocyte esterase Test strip Ql (U) Negative Normal Negative [facility] Comment on above: Order Comment: Name Collection Type:: Clean-Voided Midstream Performed By: #### U A #### [facility] [address] [place] [address] [place] Nitrite,Urine Negative Normal Negative [facility] Comment on above: Order Comment: Name Collection Type:: Clean-Voided Midstream Performed By: #### U A #### [address] Occult Blood,Urine Negative Normal Negative [facility] Comment on above: Order Comment: Name Collection Type:: Clean-Voided Midstream Result Comment: PERF ORMED BY: [place] [address] PATHOLOGIST PELLETIZER TENDER TO [place] M.D. Performed By: #### U A #### [address] pH (U) 6.5 [pH] Normal 5.0-9.0 [facility] Comment on above: Order Comment: Name Collection Type:: Clean-Voided Midstream Performed By: #### U A #### [address] Protein,Urine Negative Normal Negative [facility] Comment on above: Order Comment: Name Collection Type:: Clean-Voided Midstream Performed By: #### U A #### [address] Specificy [place],Urine 1.026 Normal 1.001-1.030 [facility] Comment on above: Order Comment: Name Collection Type:: Clean-Voided Midstream Performed By: #### U A #### [address] Urobilinogen,Urine Normal Normal Normal [facility] Comment on above: Order Comment: Name Collection Type:: Clean-Voided Midstream Performed By: #### U A #### [address] General Surgery Office/Clini c Noteon 05-31-2021 General Surgery Office/Clinic Note Chief Complaint post operative follow up HPI Staff 6 day post operative follow up post colonoscopy and EGD with antral biopsy. Continues with right flank pain, nausea and vomiting. History of Present Illness 6 days s/p EGD and colonoscopy due to N/V, rectal bleeding; right flank/back pain; EGD with mild gastritis, bx negative for H pylori, some bile reflux; normal colonoscopy; started on Carafate but patient not taking consistently, no real improvement; taking aloe vera juice with some improvement; no wt loss documented. still with constant pain right flank/back; other symptoms improving. Review of Systems ROS - Provider Constitutional: no fever, no sweats, no weight loss. Eyes: no glasses, no blurred vision, no visual loss. ENMT: no dentures, no hoarseness, no swallowing difficulties, no hearing loss, no ear infection(s), no nose bleeds. Cardiovascular: high blood pressure, no chest pain, regular heartbeat, no heart murmur. Respiratory: no shortness of breath, no cough, no asthma, no wheezing. Gastrointestinal: mild nausea, no vomiting, no diarrhea, no constipation, no blood in stool, no change in bowel habits, no abdominal pain, no hepatitis. Genitourinary: no kidney stones, no urine infection, no dysuria. Musculoskeletal: mild pain, no weakness. Skin: no changing moles, no rash, no skin lumps. Neurologic: yes seizures, no epilepsy, no headache. Psychiatric: no emotional or psychiatric problem. Heme/Lymph: no bleeding problems, no anemia, no blood clots, no transfusions. Allergy/Immunologic: no swollen lymph nodes/glands, no IV drug abuse. Other: Additional ROS info: Except as noted in the above Review of Systems and in the History of Present Illness, all other systems have been reviewed and are negative or noncontributory. Physical Exam Vitals & Measurements T: 36.7 ?C (Temporal Artery) WT: 136.8 kg WT: 136.8 kg abd: obese, soft, normal bs, nontender, nondistended Assessment/Plan 1. Right flank pain (R10.9: Unspecified abdominal pain) suspect back/musculoskeletal etiology; will discuss with Dr Mccormick, possible pain management evaluation for trial of injection. 2. Nausea and vomiting (R11.2: Nausea with vomiting, unspecified) improved; possible component of gastroparesis/Parkinson's disease; recommend 6 small meals per day, no carbonation; call with problems/questions. 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 History of stroke Hyperlipidemia Hypertension Liver cancer Nausea and vomiting Neck pain Nocturia Parkinsons Retention of urine Right flank pain seizures Seizures Urge incontinence Urinary retention Urinary urgency Historical Arthritis Procedure/Surgical History Colonoscopy (05/23/2021), EGD - Esophagogastroduodenoscopy (05/23/2021), Implantation of electronic stimulator in brain (10/06/2008), Appendectomy, Arthritis of left ankle, Arthroscopy of knee, Carpal tunnel release, Cataracts, Drainage of abscess, Excision biopsy of lesion of skin of head or neck, Gastrocnemius recession, Hernia, Hydrocelectomy, Nasal sinus procedure, Tonsillectomy, Tracheostomy. Medications acetaminophen, 650 mg, As Directed Anoro Ellipta 62.5 mcg-25 mcg inhalation powder, 1 inh, Inhalation, Daily aspirin 81 mg Chew Tab, Chewed, Daily atorvastatin 10 mg Tab, 10 mg= 1 tab(s), Oral, Daily candesartan 8 mg Tab, 8 mg= 1 tab(s), Oral, Daily cetirizine, 10 mg, Daily cloNIDine 0.2 mg Tab, 0.2 mg= 1 tab(s), Oral, BID Diclofenac 75mg Tab-DR, 75 mg, Oral, BID furosemide 40 mg Tab, 40 mg= 1 tab(s), Oral, BID Levemir FlexTouch 100 units/mL subcutaneous solution, 56 unit, SubCutaneous montelukast 10 mg Tab, 10 mg= 1 tab(s), Oral, Daily NIFEdipine (Eqv-Procardia XL) 90 mg oral tablet, extended release oxybutynin 10 mg ER Tab, 10 mg= 1 tab(s), Oral, Daily Pantoprazole [address] Tab Potassium Chloride (Aac-Muwe-Oph M20) 20 mEq oral tablet, extended release Topamax 100 mg Tab, 100 mg= 1 tab(s), Oral, TID traMADol 100 mg oral tablet, 100 mg= 1 tab(s), Oral, BID Ventolin HFA 90 mcg/inh Aerosol, Inhalation, q6hr Vitamin D3 warfarin, 7.5 mg, Oral, TueSat warfarin, 10 mg, Oral, MonWedFri Allergies Neurontin (Stroke) Valium (Syncope) beta blockers (Headache) Social History Alcohol - Denies Alcohol Use, 07/19/2020 Tobacco Never (less than 100 in lifetime) Tobacco Use:. Former smokeless tobacco user, quit more than 30 days ago (more content not included)... [facility] Comment on above: Result Comment: Elec tronically Signed By: NOE GEORGE, Andry Das\.br\Date and Time Signed: 05/31/21 11:26 EDT Ambulatory Clinical Summaryo 05-29-2021 Ambulatory Clinical Summary {[id number]}CD:6143 68 [facility] Outside Colonoscopyon 2020 Outside Colonoscopy [id number]#1.00CD:127 [facility] Pathology Noteon 05-25-2021 Pathology Note [id number]#1.00CD:127 [facility] Provider Letter FTon 05-23 Provider Letter [facility] [place] Luis Mccormick, [facility] [place] [address] Re: ANDRY PIERRE Date of : 1960 Thank you for your referral of Andry Pierre who was seen on consultation on May 18, 2021, for Right upper quadrant pain and rectal bleeding, nausea, vomiting, and constipation. I have enclosed my consultation notes for your review. I will be happy to follow Andry should his symptoms persist. Sincerely, Andry Adames MD General Surgery [facility] Consent for Procedure/Surger yon 05-21-2021 Consent for Procedure/Surgery [id number]#[id number]:127 [facility] Immunization Recordson 05-21 Immunization Records [id number]#1.00CD:127 Normal [facility] Ambulatory Clinical Summaryo n 05-18-2021 Ambulatory Clinical Summary {[id number]}CD:6143 68 Normal Nicolas [facility] General Surgery Office/Clini c Noteon 05-18-2021 General Surgery Office/Clinic Note HPI Staff Est patient , RUQ pain x 8 wks , u/s done 05/03/[address] [facility]. recent rectal bleeding currently having nausea , vomiting and constipation x 9 days History of Present Illness 60 yo male with h/o htn, COPD, DM, CVA, DVT, on Coumadin, reports 8 week h/o constant RUQ/flank pain, intermittent nausea/vomiting and constipation; began when he was just sitting, no injury, no food trigger; has been constant ache, no fevers; so radiation of pain to flank; no urinary symptoms; some intermittent N/V; unrelated to eating; recent constipation over last several weeks, improving with Colace, probiotic/fiber; had similar problem in remote past and was hospitalized in [place] with a torn muscle; only abdominal operation RIHR x 3; recent CT scan of abdomen wnl; GB US with possible small stones adherent to fundus of gallbladder, no wall thickening or ductal dilation; normal HIDA scan; all studies personally reviewed; no h/o jaundice or pancreatitis; poor po intake, with mild recent wt loss; patient reports that he had a colonoscopy at [facility] within the last 5 years, but no records available in the system; may have been at another facility; no previous EGD. Review of Systems PHQ Score Initial Depression Screen Score: 0 ROS - Provider Constitutional: no fever, no sweats, no weight loss. Eyes: no glasses, no blurred vision, no visual loss. ENMT: no dentures, no hoarseness, no swallowing difficulties, no hearing loss, no ear infection(s), no nose bleeds. Cardiovascular: high blood pressure, no chest pain, regular heartbeat, no heart murmur. Respiratory: no shortness of breath, no cough, no asthma, no wheezing. Gastrointestinal: yes nausea, yes vomiting, no diarrhea, yes constipation, no blood in stool, yes change in bowel habits, yes abdominal pain, no hepatitis. Genitourinary: no kidney stones, no urine infection, no dysuria. Musculoskeletal: no pain, no weakness. Skin: no changing moles, no rash, no skin lumps. Neurologic: yes seizures, no epilepsy, no headache. Psychiatric: no emotional or psychiatric problem. Heme/Lymph: no bleeding problems, no anemia, no blood clots, no transfusions. Allergy/Immunologic: no swollen lymph nodes/glands, no IV drug abuse. Other: Additional ROS info: Except as noted in the above Review of Systems and in the History of Present Illness, all other systems have been reviewed and are negative or noncontributory. Physical Exam Vitals & Measurements T: 36.2 ?C (Temporal Artery) HR: 61(Peripheral) RR: 20 BP: 120/80 SpO2: 98% HT: 182.9 cm HT: 182.88 cm WT: 137.3 kg WT: 137.34 kg BMI: 41.06 HEENT: normal conjunctiva, sclera clear, no scleral icterus, EOM intact, PERRLA, oral mucosa moist without lesions. Neck: trachea midline,tracheostomy scar; no mass, symmetric, no thyromegaly or nodules, no adenopathy Respiratory: lungs CTA, respirations non labored. Cardiovascular: regular rate and rhythm, no murmur, no pedal edema or varicosities. Gastrointestinal: obese, soft, non distended, mild tenderness, RUQ/flank, no peritoneal signs; no masses, no palpable hernias, diastasis recti yes, no hepatosplenomegaly; normal bs Lymphatic: no cervical adenopathy, Musculoskeletal: normal gait, digits and nails without infection, nodes, cyanosis, clubbing. Skin: no rashes, no lesions, no ulcers, no subcutaneous nodules, induration. Psychiatric/Neuro: oriented to time, place, person, judgement normal, affect appropriate for age, insight intact, no focal deficits. Tests: labs reviewed, x-rays reviewed, review of old records completed, Discussed surgical options, risks, and possible complications with patient. Assessment/Plan 1. Abdominal pain, right upper quadrant (R10.11: Right upper quadrant pain) plan EGD and colonoscopy under anesthesia for further evaluation, informed consent obtained. 2. Change in bowel habits (R19.4: Change in bowel habit) see # 1 3. 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 [facility] Comment on above: Result Comment: Elec tronically Signed By: NOE GEORGE, Andry Daniel\Date and Time Signed: 05/18/21 15:[address] ED[address] - CT Reporton 05-17-20[address] - [address] Report [id number]#1.00CD:127 [facility] RAD - MISCon 05-17-2021 RAD - MISC [id number]#1.00CD:127 [facility] RAD - MISC [id number]#1.00CD:127 [facility] RAD - Ultrasound Reporton RAD - Ultrasound Report [id number]#1.00CD:127 [facility] RAD - Ultrasound Reporton RAD - Ultrasound Report [id number]#1.00CD:127 [facility] Physician Referralon 021 Physician Referral [id number]#1.00CD:127 [facility] Provider Letter [facility] Provider Letter [facility] [place] 23, 2021 Luis Mccormick, [address] [place] [address] [place] [address] Re: ANDRY PIERRE Date of : 1960 Thank you for your referral of Andry Pierre who was seen on consultation of excision of lump on the neck on March 14, 2021. I have enclosed my consultation notes for your review. I will be happy to follow Andry should his symptoms persist. Sincerely, Andry Adames MD General Surgery [facility] Ambulatory Clinical Summaryo n 03-14-2021 Ambulatory Clinical Summary {[id number]}CD:6143 68 [facility] Patient Educationon 03-14-20 21 Patient Education Exercising to Lose W eight Exercise is structured, repetitive physical activity to improve fitness and health. Getting regular exercise is important for everyone. It is especially important if you are overweight. Being overweight increases your risk of heart disease, stroke, diabetes, high blood pressure, and several types of cancer. Reducing your calorie intake and exercising can help you lose weight. Exercise is usually categorized as moderate or vigorous intensity. To lose weight, most people need to do a certain amount of moderate-intensity or vigorous-intensity exercise each week. Moderate-intensity exercise Moderate-intensity exercise is any activity that gets you moving enough to burn at least three times more energy (calories) than if you were sitting. Examples of moderate exercise include: ? Walking a mile in 15 minutes. ? Doing light yard work. ? Biking at an easy pace. Most people should get at least 150 minutes (2 hours and 30 minutes) a week of moderate-intensity exercise to maintain their body weight. Vigorous-intensity exercise Vigorous-intensity exercise is any activity that gets you moving enough to burn at least six times more calories than if you were sitting. When you exercise at this intensity, you should be working hard enough that you are not able to carry on a conversation. Examples of vigorous exercise include: ? Running. ? Playing a team sport, such as football, basketball, and soccer. ? Jumping rope. Most people should get at least 75 minutes (1 hour and 15 minutes) a week of vigorous-intensity exercise to maintain their body weight. How can exercise affect me? When you exercise enough to burn more calories than you eat, you lose weight. Exercise also reduces body fat and builds muscle. The more muscle you have, the more calories you burn. Exercise also: ? Improves mood. ? Reduces stress and tension. ? Improves your overall fitness, flexibility, and endurance. ? Increases bone strength. The amount of exercise you need to lose weight depends on: ? Your age. ? The type of exercise. ? Any health conditions you have. ? Your overall physical ability. Talk to your health care provider about how much exercise you need and what types of activities are safe for you. What actions can I take to lose weight? Nutrition ? Make changes to your diet as told by your health care provider or diet and verifying specialist (dietitian). This may include: ? Eating fewer calories. ? Eating more protein. ? Eating less unhealthy fats. ? Eating a diet that includes fresh fruits and vegetables, whole grains, low-fat dairy products, and lean protein. ? Avoiding foods with added fat, salt, and sugar. ? Drink plenty of water while you exercise to prevent dehydration or heat stroke. Activity ? Choose an activity that you enjoy and set realistic goals. Your health care provider can help you make an exercise plan that works for you. ? Exercise at a moderate or vigorous intensity most days of the week. ? The intensity of exercise may vary from person to person. You can tell how intense a workout is for you by paying attention to your breathing and heartbeat. Most people will notice their breathing and heartbeat get faster with more intense exercise. ? Do resistance training twice each week, such as: ? Push-ups. ? Sit-ups. ? Lifting weights. ? Using resistance bands. ? Getting short amounts of exercise can be just as helpful as long structured periods of exercise. If you have trouble finding time to exercise, try to include exercise in your daily routine. ? Get up, stretch, and walk around every 30 minutes throughout the day. ? Go for a walk during your lunch break. ? Park your car farther away from your destination. ? If you take public transportation, get off one stop early and walk the rest of the way. ? Make phone calls while standing up and walking around. ? Take the stairs instead of elevators or escalators. ? Wear comfortable clothes and shoes with good support. ? Do not exercise so much that you hurt yourself, feel dizzy, or get very short of breath. Where to find more information ? U.[place]. Department of Health and Human Services: www.[facility].gov ? Centers for Disease Control and Prevention (CDC): www.cdc.gov Contact a health care provider: ? Before starting a new exercise program. ? If you have questions or concerns about your weight. ? If you have a medical problem that keeps you from exercising. Get help right away if you have any of the following while exercising: ? Injury. ? Dizziness. ? Difficulty breathing or shortness of breath that does not go away when you stop exercising. ? Chest pain. ? Rapid heartbeat. Summary ? Being overweight increases your risk of heart disease, stroke, diabetes, high blood pressure, and several types of cancer. ? Losing weight happens when you burn more calories than (more content not included)... [facility] Physician Referralon 021 Physician Referral [id number]#1.00CD:127 [facility] Patient Correspondenceon Patient Correspondence [id number]#[id number]:127 [facility] Reminderson 01-10-2021 Reminders - From: Rosa Cuellar To: EU - Recalls Karlie; Cc: Rosa Cuellar; Sent: 08/17/2020 11:45:05 EST Show up: 08/17/2020 11:45:00 EST Subject: r/s cysto Reminder/Recall Pt cx 08/08/20 Cysto due to pt having chest pain. He needs r/s due to hematuria. 08/17/20 l/m on pts cell vm @ 11:44am.LG l/m on vm @ 2:38pm.LG l/m on pts cell vm.LG Dr. Barfield, I have been unable to reach this pt to schedule Cysto. He was the former DDM pt that you saw the same days as him. He cx his procedure and has not returned calls. Do you want reg/cert mail letters sent?LG From: Rosa Cuellar ( - Ellas Karlie) To: Larry BARFIELD MD; Cc: Rosa Cuellar; Sent: 11/02/2020 11:37:05 EST Show up: 11/02/2020 11:36:00 EST Subject: RE: r/s cysto yes certified letter please pw. Sent to Nila to send reg/cert mail letters.LG From: Rosa Cuellar To: Rosa Cuellar; Nila Norris; Sent: 11/23/2020 14:19:09 EST Show up: 11/23/2020 14:18:00 EST Subject: RE: r/s cysto Letter typed for PRW to sign. LR Pt was sent Certified/regular mail letter reg r/s cysto due to hematuria. He has not responded. Do you want discharge letters sent?LG From: Rosa Cuellar To: Larry BARFIELD MD; Cc: Rosa Cuellar; Sent: 01/05/2021 08:17:28 EDT Show up: 01/05/2021 08:17:00 EDT Subject: RE: r/s cysto From: Larry BARFIELD MD To: Rosa Cuellar; Sent: 01/08/2021 15:19:04 EDT Show up: 01/08/2021 15:18:00 EDT Subject: RE: r/s cysto yes pw. Sent to Nila Das to send discharge letters reg/cert mail.LG From: Rosa Cuellar To: Nila Norris; Cc: Rosa Cuellar; Sent: 01/09/2021 14:48:28 EDT Show up: 01/09/2021 14:48:00 EDT Subject: Send discharge letters Discharge letter typed for PRW to sign. LR Letter mailed regular/certified letter today. [facility] Provider Letteron 01-09-2021 Provider Letter (Inserted Image. Pina ble to display) January 09, 2021 ANDRY PIERRE [address] [place] [address] ANDRY PIERRE 1960 SENT VIA CERTIFIED AND REGULAR MAIL Dear Mr. Pierre, This letter is to inform you the providers of [facility] Urology/[facility], [facility] will no longer be responsible for your routine medical care due to your noncompliance. Emergency care only will be provided for the thirty (30) days following this letter. During this time period we suggest that you find another physician for your medical needs. A listing of area physicians can be found on [facility]'s website at [email or web address] or you may contact your health plan. We will be glad to forward your records to your new physician as long as we receive a signed release of records form. Sincerely, Larry Barfield M.D., F.A.C.S. [facility] [address] [place] [address]. [place] [address] [facility] Patient Correspondenceon Patient Correspondence [id number]#[id number]:127 [facility] Provider Letter Office-[facility] 11-24-2020 Provider Letter [facility] November 24, 2020 ANDRY PIERRE [address] [place] [address] ANDRY PIERRE 1960 SENT VIA CERTIFIED AND REGULAR MAIL Dear Mr. Bhandari, I am corresponding with you by certified mail due to your lack of response. You have a medical condition which requires follow up. We had you scheduled on 08/08/2020 for a cystoscopy, which is a look into the bladder due to blood in the urine found at the time of your visit. You cancelled this procedure. The office has left several messages in attempt to reschedule the procedure with no response from you. Please call my office within 2 weeks so we can get your procedure rescheduled. I cannot be responsible for your urologic care if you do not get the recommended procedure performed. Your failure to comply with this request may result in discharge from the practice due to your noncompliance. Sincerely, Larry Barfield M.D., F.A.C.S. [facility] [address], [place] [address] [facility] Reminderson 08-02-2020 Reminders - From: Radha King MA To: EU - Clinical; Sent: 07/19/2020 14:09:34 EDT Show up: 08/02/2020 14:09:00 EDT Subject: fish/cytol Reminder/Recall fish/cytol done 07/19/2020 done, sent msg to prw to review results [facility] Outside Cardiovascularon Outside Cardiovascular [id number]#[id number]:127 [facility] Outside Radiologyon 08-01-20 20 Outside Radiology [id number]#1.00CD:127 [facility] Outside Radiology [id number]#1.00CD:127 [facility] Progress Note-Physicianon Progress Note-Physician [id number]#1.00CD:127 [facility] Urology Office/Clinic Noteon 07-25-2020 Urology Office/Clinic Note Chief Complaint New Pt. HPI Staff New Pt. [facility] on 07/10/2020 due to leaking around catheter. US of kidneys done 11/17/2019. CT SCAN done 07/04/2020. Pt. states after having a Ct scan Pt. was not able to urinate and had catheter placed. Pt. does not have a history of urine retention. 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 Pt. states by a Doctor in [place] told Pt. had prostates cancer. Pt. states no biopsy was done, just a blood test. PSA was 1.39 done 07/07/20. Cath was removed at [facility] this morning. Dysuria: denies pain or burning Incomplete bladder emptying: yes pt had cath for 2 weeks placed by [facility], cath was removed this morning at [facility] Hematuria: pt states he had visible blood in cath, UA shows MODERATE Frequency: yes severe intermittent more then 7 times a day before cath was placed Urgency: yes moderate intermittent before cath was placed, pt has been on Oxybutynin for the past 2 years Nocturia: yes severe intermittent more then 7 times a night, pt states he uses urinal at least 4 times a night before cath was placed Stream: denies hesitancy, no weak stream, no start/stop stream Leaking: denies leaking before cath was placed, pt had a lot of leaking when he had cath Post void dripping: denies Wearing pads/ Depends: denies Urge incontinence: yes Stress incontinence: denies Incontinence without Sensory Awareness: denies Abdominal pain: yes occasionally Flank pain: yes occasionally Sexual complaints: denies History of Present Illness I have reviewed the previous health record information and history for this patient from Dr. Marvin I have reviewed and verified the staff HPI to be accurate for this encounter. There have been no associated fever, chills, flank pain, or blood in the urine. Denies any urinary infections since last encounter. Reviewed CT scan and [facility] ER notes Review of Systems PHQ Score Initial Depression Screen Score: 0 ROS - Provider Constitutional: denies weight loss, denies hot flashes. Eyes: denies eye problems. Gastrointestinal: denies nausea, denies vomiting. Cardiovascular: denies chest pain or angina. Integumentary: no dryness Musculoskeletal: denies musculoskeletal symptoms. ENMT: denies otolaryngeal symptoms. Respiratory: no shortness of breath. Heme/Lymph: denies easy bleeding tendency, denies easy bruising tendency. Psychiatric: no confusion, no anxiety. Genitourinary: denies dysuria, denies hematuria, denies discharge, denies urinary frequency, denies urinary hesitancy, denies nocturia, denies incontinence, denies genital sores, denies decreased libido, and denies erectile dysfunction. Physical Exam Vitals & Measurements HR: 55(Peripheral) RR: 16 BP: 148/95 HT: 183.0 cm HT: 183.0 cm WT: 136.2 kg WT: 136.2 kg BMI: 40.67 General Appearance: alert, no distress, well nourished, well developed male. Head: normocephalic . Eyes: normal orbit and globe. ENMT: normal examination of external ears. Chest: Lungs CTA, respirations non labored. Cardiovascular: regular rate and rhythm. Abdomen: soft, non distended, no tenderness, no mass or organomegaly, no hernia. Genitourinary: normal scrotum, normal testes, normal urethra, normal epididymis, normal vas deferens/spermatic cord. Flank Pain: none. Bladder: nonpalpable. Penis: normal shaft, normal glans. Prostate: normal prostate, estimated weight 35 gms, no hard nodule observed. Lymph Nodes: unremarkable palpation of the cervical area. Skin: warm, dry, no bruising. Psychiatric: cooperative, affect appropriate for age, normal judgement, euthymic mood. Assessment/Plan 1. Urinary retention (R33.9: Retention of urine, unspecified) Patient reported to [facility] ER for leaking around catheter on 07/10/20 which was placed due to unable to void a few days prior. Catheter has been removed today. He was able to urinate after removed without complications. S/P Cysto done 01/2019 which was negative. Will repeat Cysto due to gross hematuria. Patient is agreeable. The risks and benefits for cystoscopy have been discussed. The risks include bleeding, infection, and irritation of the bladder and urinary channel, among others. The patient, after being informed of procedural details and after questions have been answered, wishes to proceed. Full informed consent has been obtained. Will order Local anesthesia. Antibiotic therapy ordered. 2. Gross hematuria (R31.0: Gross hematuria) Patient reported witnessed blood in CORNEJO bag for many days. 3. BPH with urinary obstruction (N40.1: Benign prostatic hyperplasia with lower urinary tract symptoms) PSA done 07/07/20 was 1.39. Today's EDWARD on exam is benign. No nodule noted, he had a hard stool in rectal vault. He had an elevated PSA in the past. Will continue to monitor and repeat PSA in one year. This is ordered. 4. Urinary urgency (R39.15: Urgency of urination) Patient is currently taking Oxybutynin which maybe contributing t (more content not included)... [facility] Comment on above: Result Comment: Elec tronically Signed By: Yon GEORGE, Lefty Jamil\.br\Date and Time Signed: 07/25/20 12:11 EDT Urology Office/Clinic Note Chief Complaint [facility] 07/10/2020 HPI Staff [facility] on 07/10/2020 due to leaking around catheter. US of kidneys done 11/17/2019. Pt. states after having a Ct scan Pt. was not able to urinate and had catheter placed. Pt. does not have a history of urine retention. 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 Pt. states by a Doctor in [place] told Pt. had prostates cancer. Pt. states no biopsy was done, just a blood test. PSA was 1.39 done 07/07/20. Pain with urination:No Blood in urine:Severe Pt. states having red blood in cath bag. Pt. states having clots and sting like something in the bag. Incomplete bladder emptying:No Frequency:Mild Pt. states on how much he was drinking. Urgency:Moderate Before cath was placed. Nocturia:Moderate 6-7x's Hesitancy:No Stream:No strong stream Post-void dribbling:No Leaking before getting to the restroom:Moderate Pt. states before cath was put in Pt. states he was having urge incontinence. Urinary incontinence without sensory awareness:No Temporarily unable to restrain urination with body movement:No Flank/Back pain:Moderate Pt. states occasionally will have back pain. Abdominal pain:Moderate Pt. states occasionally will have abdominal pain. 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 There have been no associated fever or chills. Pt. denies any pain/burning with urination at this time. Review of Systems General: Fevers Denies, Weight Loss Denies, Weakness Denies Skin: Rash Denies, Non-healed Skin Wound Denies Blood: Bruising Denies, Bleeding Denies, Anemia Denies Eyes: Eye Problems Denies Ears: Recent Hearing Problems Denies Respiratory: Cough Denies, Coughing Blood Denies, Shortness of Breath Denies, Respiratory Infections Denies, Loud Snoring Denies Cardiovascular: Chest Pain Denies, Sensation of Irregular Heart Beat Denies Intestinal: Constipation Denies, Diarrhea Denies, Rectal Bleeding/Blood in Stool Denies Hemorrhoids Denies, Indigestion Denies, Nausea Denies, Vomiting Denies Genito-Urinary: Have you ever seen blood in your urine Yes, Have you ever been told there was blood in your urine Denies, Penile Discharge Denies, Penile Bleeding Denies, Leaking Urine (incontinence) Yes, Flank or Kidney Pain Yes, Pain relating to your bladder filling or emptying Denies, Burning with Urination Denies, Urinary Tract Infection Denies Kidney Stone Denies, Sexual Difficulties Denies Muscle-Skeletal: Joint Pain Denies, Back Pain Denies, Muscle Cramps Denies Nervous System: Headaches Denies, Seizures Denies, Blackouts Denies, Numbness Denies Weakness in a certain area of your body Denies, Tingling in a certain area of your body Denies Psychological: Confusion Denies, Anxiety Denies Other Free Text: Physical Exam Vitals & Measurements HR: 60(Peripheral) RR: 16 BP: 144/98 HT: 183.0 cm HT: 183 cm WT: 136.2 kg WT: 136.2 kg BMI: 40.67 General Appearance: alert, no distress, well nourished, well developed male. Head: normocephalic . Eyes: normal orbit and globe. ENMT: normal examination of external ears. Chest: Lungs CTA, respirations non labored. Cardiovascular: regular rate and rhythm. Abdomen: soft, non distended, no tenderness, no mass or organomegaly, no hernia. Genitourinary: normal scrotum, normal testes, normal urethra, normal epididymis, normal vas deferens/spermatic cord. circumcised, normal meatus, no palpable urethral stricture, Lt. testicle rides higher, no testes masses. Flank Pain: none. Bladder: nonpalpable. Penis: normal shaft, normal glans. Prostate: normal prostate, estimated weight 40 gms, yes hard nodule observed. Rt. sided nodule, clinical T2A. Lymph Nodes: unremarkable palpation of the cervical area. Skin: warm, dry, no bruising. chronic swelling, 2+ pretibial edema Psychiatric: cooperative, affect appropriate for age, normal judgement, euthymic mood. Assessment/Plan 1. 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 Pt's catheter has been removed in office with no complications. They have been advised to drink plenty of fluids. Pt. has been instructed to call the office in the event that they are not able to void in the next 4-6 hrs. Advised pt. to go to the ER if they experience any severe bleeding, fever over 101, and/or shaking chills. 2. Prostate nodule (N40.2: Nodular prostate without lower urinary tract symptoms) ??? Pt states that he was dx with prostate cancer 3yrs. ago by a in [place]. Pt. states that there was never a biopsy done, just a blood test. Last PSA done 07/07/2020 w/ a result of 1.39. EDWARD today - 40gms, rt. sided nodule, clinical T2A. I recommended pt. to get a bx but pt. does have other medical issues that may be higher priority. 3. Gross hematuria (R31.0: Gross hematuria) Pt. states blood in Cornejo bag along with small blood clots. Pt. states that he has had blood in his urine fo (more content not included)... [facility] Comment on above: Result Comment: Elec tronically Signed By: Yon GEORGE, Lefty Jamil\.br\Date and Time Signed: 07/25/20 11:44 EDT Lab Reportson 07-24-2020 Lab Reports [id number]:127 [facility] UroVysion Fish and Urine Cyt o ([facility])on 07-24-2020 UVFISH & UC Diagnosis Info Invalid Interpretation Code [facility] Comment on above: Result Comment: A:Ur ine,Urine:Voided Diagnosis Summary - Rare papillary groups of urothelial cells with mild cytological atypia are present. A low grade papillary urothelial neoplasm can not be excluded. Diagnosis Summary - The UroVysion FISH study detected normal copy numbers for chromosomes 3, 7, 17, and 9p21. 48 cells were analyzed in this evaluation. No evidence of aneuploidy for chromosomes 3, 7, or 17 or deletion of the 9p21 locus was found in cells present in this specimen. This test does not rule out the possibility of a low grade non-invasive papillary urothelial carcinoma. These findings should be correlated with cytology and cystoscopy results.* Microscopic Notes - Microscopic Notes - Abnormal cells 9p21 deletions: Abnormal cells aneploid events: Total cells analyzed: 48 Hematuria: Gross Description Site ID:A color Yellow fixative Alcohol Received 80 mls of slightly cloudy yellow fluid with the patient's name and, Urine on the vial. Electronically signed by : on: 07/24/2020 10:42:51 Performed By: #### 1 [id number] ####[facility] [address] [place] [address] RAD - CT Reporton 07-21-2020 RAD - CT Report [id number]:127 [facility] ED Note-Physicianon 07-20-20 ED Note-Physician [id number]:127 [facility] Formson 07-20-2020 Forms [id number]:127 [facility] Ambulatory Clinical Summaryo n 07-19-2020 Ambulatory Clinical Summary {[id number]}CD:6143 68 [facility] Ambulatory Clinical Summary {[id number]}CD:6143 68 [facility] Auth for Release of Medical Recordson 07-19-2020 Auth for Release of Medical Records [id number]:127 [facility] Patient Educationon 10-14-20 20 Patient Education Family Medicine Obesity Obesity is having too much body fat and a body mass index (BMI) of 30 or more. BMI is a number based on your height and weight. The number is an estimate of how much body fat you have. Obesity can happen if you eat more calories than you can burn by exercising or other activity. It can cause major health problems or emergencies. HOME CARE ? Exercise and be active as told by your doctor. Try: ? Using stairs when you can. ? Parking farther away from store doors. ? Gardening, biking, or walking. ? Eat healthy foods and drinks that are low in calories. Eat more fruits and vegetables. ? Limit fast food, sweets, and snack foods that are made with ingredients that are not natural (processed food ). ? Eat smaller amounts of food. ? Keep a journal and write down what you eat every day. Websites can help with this. ? Avoid drinking alcohol. Drink more water and drinks without calories. ? Take vitamins and dietary pills (supplements ) only as told by your doctor. ? Try going to weight-loss support groups or classes to help lessen stress. Dieticians and counselors may also help. GET HELP RIGHT AWAY IF: ? You have chest pain or tightness. ? You have trouble breathing or feel short of breath. ? You feel weak or have loss of feeling (numbness ) in your legs. ? You feel confused or have trouble talking. ? You have sudden changes in your vision. MAKE SURE YOU: ? Understand these instructions. ? Will watch your condition. ? Will get help right away if you are not doing well or get worse. Document Released: 12/14/2012 Document Reviewed: 12/14/2012 ExitCare? Patient Information ?2013 [email or web address]. [facility] Patient Education Family [facility] Acute Urinary Retention, Male You have been seen by a caregiver today because of your inability to urinate (pass your water). This is a common problem in elderly males. As men age their prostates become larger and block the flow of urine from the bladder. This is usually a problem that has come on gradually. It is often first noticed by having to get up at night to urinate. This is because as the prostate enlarges it is more difficult to empty the bladder completely. Treatment may involve a one time catheterization to empty the bladder. This is putting in a tube to drain your urine. Then you and your personal property assessor can decide at your earliest convenience how to handle this problem in the future. It may also be a problem that may not recur for years. Sometimes this problem can be caused by medications. In this case, all that is often necessary is to discontinue the offending agent. If you are to leave the cornejo catheter (a long, narrow, hollow tube) in and go home with a drainage system, you will need to discuss the best course of action with your caregiver. While the catheter is in, maintain a good intake of fluids. Keep the drainage bag emptied and lower than your catheter. This is so contaminated (infected) urine will not be flowing back into your bladder. This could lead to a urinary tract infection. Only take ylag-pyd-jrwtiod or prescription medicines for pain, discomfort, or fever as directed by your caregiver. SEEK IMMEDIATE MEDICAL CARE IF: You develop chills, fever, or show signs of generalized illness that occurs prior to seeing your caregiver. Document Released: 12/29/2001 Document Revised: 12/14/2012 Document Reviewed: 09/13/2009 ExitCare? Patient Information ?2014 [email or web address]. [facility] Letter [facility] Luis Mccormick [address] [place] [address] Re: ANDRY PIERRE Date of : 1960 Dr Mccormick, I saw one of your patient's today, or at least he claimed to be one of your patients. However it did not go well. While our EMR did not seems to tract this note correctly I remained concerned about this patient. To try to avoid him suffering and because of how confusing the visit was, I would prefer to speak with you. Please do give me a call and I will try to call you. Here is the paragraph that summarizes a 2 hour visit trying to determine the next steps with this complex patient. Sorry it did not go well and if the patient wants me to continue to care for him I will. If not, I understand. 59 YO male with a note signed above by Dr. Barfield but sent to him by mistake in the clinical setting of a reported history of prostate cancer based on PSA alone per pt in [facility]. Equally confusing is the fact that this patient was seen with Mahi Sue first spot where the visit went bad was when the patient complained of a new diagnosis of pancreatic cancer. This was reported to the point that he and his were teary eyed. I investigated this claim and feel most likely this patient has a possible pancreatitis on CT scan. He and his indicated he reported blood test diagnosed him with pancreatic cancer. I spent the first half of the appointment recommending he seek care for the pancreatic cancer and since he lacked clarity on this diagnosis explained if they thought he was a whipple candidate he should seek care first for his pancreatic cancer. However the more questions I asked the more concerned I became about his reported diagnosis of pancreatic cancer. Eventually I went on recorrd indicating based on a disjointed history from there that perhaps he had misconstrued a possible diagnosis of pancreatitis. While he denied drinking he did report he was diagnosed with the pancreatic cancer based on the CT that on my review of the report says pancreatitis from his ER visit where his catheter was placed. Unfortunately, equally confusing was the fact that he reported a remote history of prostate cancer in [facility] by a outside urologist without a biopsy. His medical history is extensive and very unusually he reported having a stack of papers at home but he did not bring them. This also seemed odd. I noteiced a tracheostomy scar and he reports being on a ventilator at home for a few years and reports a complex health history that was difficult to follow because of the level of complexity. In the end I was able to determine that he has prostate nodule on the right side of his prostate concerning for prostate cancer. I was able to determine that his PSA may have been very high in the past like 100 but he didn't know how high so I requested the records as I was able to determine his PSA's were done in [facility]. I began suspecting the patient was not forthcoming when he reported he used to be 600 lbs. While this may be possible he did not have the stigmata of skin loss or plastic surgery scars to reflect this degree of weight loss. But this was no matter, as it segwayed well into a discussion about the links between prostate cancer specific mortaility ant obesity possibly relating to testosterone and estrogen conversion in adipose tissue. Regardless, I felt his prior clinical nontissue diagnosis of prostate cancer was concerning as was his nodule on exam. While I was thankful that this patient did not have pancreatic cancer, I struggled to set up a prostate biopsy for him because of his coumadin and a reported history of 37 blood clots at one time in one leg and 2 seperate pulmonary emboli. Regardless, I am now equally confused that a scribed note from Nila rather than Mahi. The last report that made me feel like perhaps this patient was making outlandish claims rather than confused innocence is when toward the end of our visit after setting up a referral to vascular surgery to see if this patient with newly reported lower extremity edema that looked chronic to me represented a new blood clot in this same leg. I ordered a ultrasound of this patient's leg and I am not sure what happened to the note scribed by Mahi where we described this edema. I was not sure he would not require a IVC filter. In fact I even inquired if this patient could have a hypercoagulable state. Regardless the whoe visit was martha, and in fact after offering a referral to tertiary care center because if his tracheosty and because of blood clots and warfarin I agreed to do a biopsy to try to help him get his care locally. After setting this and the ultrasound of his newly reported edema that appeared chronic, he then toward the end of our visit reported he was urinating blood for the last [address] Mccormick his family doctor had done nothing about this . It was at this point that I indicated I was very concerned by this, this was very inconsistant with my impression of (more content not included)... [facility] RAD - CT Reporton 07-19-[address] - [address] Report [id number]:127 [facility] UroVysion Fish and Urine Cyt o ([facility])on 07-19-2020 [facility] Method of Extraction Voided [facility] Comment on above: Performed By: #### 1 [id number] ####[facility] [address] [place] [address] [facility] Number of Jars 1 Invalid Interpretation Code [facility] Comment on above: Performed By: #### 1 [id number] ####[facility] [address] [facility] [place] [address] [facility] Specimen Urine Normal [facility] Comment on above: Performed By: #### 1 [id number] ####[facility] [address] [place] [address] [facility] Type of Service Technical Only [facility] Comment on above: Performed By: #### 1 [id number] ####[facility] [address] [facility] [place] [address] Vital Signs Date Time Vital Sign Value Performing Clinician Facility 01-21-2022 07:23-0400 Body height 182.9 cm Pacc 3 Work Phone: [facility] 01-21-2022 07:23-0400 Body temperature 97.2 [degF] Pacc 3 Work Phone: [facility] 01-21-2022 07:23-0400 Body weight 140.21 kg Pacc 3 Work Phone: [facility] 01-21-2022 07:23-0400 Diastolic blood pressure 84 mm[Hg] Pacc 3 Work Phone: [facility] 01-21-2022 07:23-0400 Heart rate 57 /min Pacc 3 Work Phone: [facility] 01-21-2022 07:23-0400 SaO2% (BldA) [Mass fraction] 99 % Pacc 3 Work Phone: [facility] 01-21-2022 07:23-0400 Systolic blood pressure 134 mm[Hg] Pacc 3 Work Phone: [facility] 11-13-2021 12:20-0500 Body height 182.88 cm Sanjay Dooley Other [facility] Other 11-13-2021 12:20-0500 Body mass index (BMI) [Ratio] 42.04 kg/m2 Sanjay TrackViatena Other [facility] Other 11-13-2021 12:20-0500 Body temperature 96.2 [degF] Sanjay Dooley Other [facility] Other 11-13-2021 12:20-0500 Body weight 140.62 kg Sanjay Laroses Other [facility] Other 11-13-2021 12:20-0500 Diastolic blood pressure 60 mm[Hg] Sanjay Laroses Other [facility] Other 11-13-2021 12:20-0500 Respiratory rate 20 /min Sanjay Laroses Other [facility] Other 11-13-2021 12:20-0500 SaO2% (BldA) [Mass fraction] 96 % Sanjay Dooley Other [facility] Other 11-13-2021 12:20-0500 Systolic blood pressure 92 mm[Hg] Sanjay Dooley Other [facility] Other Encounters Encounter Date Encounter Type Care Provider Facility Start: 09-19-2023 End: 09-20-2023 ambulatory LUIS MCCORMICK Facility:[facility] Start: 09-12-2023 Telephone encounter Shane bowling PA-C Work Phone: [facility]rological Confucianist Comment on above: DBS problem Start: 08-19-2023 End: 08-19-2023 ambulatory SURI [facility] Start: 08-11-2023 End: 08-12-2023 ambulatory Ramon Mendiola MD Facility:[facility] Start: 07-17-2023 End: 07-18-2023 [facility] Start: 07-07-2023 Telephone encounter Glenn Rose MD Work Phone: Neurological Confucianist Start: 05-21-2023 End: 05-21-2023 ambulatory [facility] Start: 02-20-2023 End: 02-21-2023 [facility] Start: 02-20-2023 End: 02-20-2023 ambulatory [facility] Start: 02-03-2023 End: 03-05-2023 ambulatory H FASTAN Facility:[facility] Start: 01-17-2023 End: 01-17-2023 ambulatory SOFYA [facility] Start: 01-09-2023 End: 01-09-2023 ambulatory LEMUEL [facility] Start: 01-07-2023 End: 01-08-[address] LUIS MCCORMICK . Facility:[facility] Start: 01-06-2023 End: 01-06-2023 ambulatory [facility] Start: 01-06-2023 End: 01-31-2023 ambulatory H MACO Facility:[facility] Start: 12-04-2022 End: 01-03-2023 ambulatory CARMICHAEL H FAWWAD Facility:[facility] Start: 11-06-2022 End: 12-04-2022 ambulatory CARMICHAEL H FAWWAD Facility:[facility] Start: 10-07-2022 End: 11-06-2022 ambulatory CARMICHAEL H JAMARWVERONICA Facility:[facility] Start: 09-05-2022 End: 10-06-2022 ambulatory SHAIKH Brenda DEWEY Facility:[facility] Start: 08-06-2022 End: 09-04-[address] LUIS MCCORMICK . Facility:[facility] Start: 07-10-2022 Encounter for preprocedural laboratory examination LEMUEL RODRIGUEZ [facility] Start: 07-08-2022 End: 07-09-2022 ambulatory LEMUEL RODRIGUEZ Facility:[facility] Start: 07-08-2022 End: 07-09-2022 Encounter for preprocedural laboratory examination LEMUEL RODRIGUEZ Facility:[facility] Start: 07-08-2022 End: 08-05-[address] LUIS MCCORMICK . Facility:[facility] Start: 06-24-2022 End: 06-24-2022 ambulatory DARLENE VASQUEZ Facility:[facility] Start: 06-13-2022 End: 07-06-[address] LUIS MCCORMICK . Facility:[facility] Start: 05-29-2022 End: 05-30-2022 ambulatory SOFYA SMART Facility:[facility] Start: 05-23-2022 End: 05-24-2022 ambulatory SOFYA SMART Facility:[facility] Start: 05-06-2022 End: 06-05-2022 ambulatory SHAIKH Brenda DEWEY Facility:[facility] Start: 04-05-2022 End: 05-03-2022 ambulatory SHAIKH Brenda DEWEY Facility:[facility] Start: 01-23-2022 Telephone encounter Glenn Rose MD Work Phone: Neurological Confucianist Comment on above: Results Start: 01-21-2022 End: 01-21-2022 ambulatory [address] Work Phone: Pre Anesthesia Comment on above: Pre-op evaluation (P rimary Dx); Essential tremor; Type 2 diabetes mellitus with other specified complication, with long-term current use of insulin ([facility]); Obesity, Class III, BMI >= 40; Essential hypertension; Difficult intravenous access; Acute, but ill-defined, cerebrovascular disease; Obstructive sleep apnea syndrome; Chronic obstructive pulmonary disease, unspecified COPD type ([facility]); Tobacco use; Tracheal stenosis; Gastroesophageal reflux disease, unspecified whether esophagitis present; Pulmonary embolus with infarction ([facility]); Congestive heart failure, unspecified HF chronicity, unspecified heart failure type ([facility]); Stage 3 chronic kidney disease, unspecified whether stage 3a or 3b CKD ([facility]) 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) (Primary Dx) Start: 01-21-2022 End: 01-21-2022 Nursing evaluation of patient and report Kerwin Brito RN Work Phone: [facility] Comment on above: Essential tremor (Pr imary Dx) Start: 01-21-2022 End: 01-21-2022 Patient encounter procedure Glenn Rose MD Work Phone: [facility] Comment on above: Essential tremor (Pr imary Dx) Start: 01-21-2022 End: 01-21-2022 Admission to establishment Pacc Main 3 Work Phone: [facility] Start: 01-21-2022 End: 01-21-2022 Preprocedural examination done Pac Main 3 Work Phone: Pre Anesthesia Start: 01-04-2022 Telephone encounter Harris chowdhury MD Work Phone: [facility] Comment on above: DBS MARIA G message Start: 11-26-2021 End: 11-26-2021 ambulatory Aziz Bakhous Other appiris Other Start: 11-26-2021 Telephone encounter Aziz Bakhous [facility] Start: 11-13-2021 End: 11-13-2021 ambulatory Aziz Bakhous Other appiris Other Start: 11-13-2021 Office outpatient ne w 45 minutes Aziz Bakhous [facility] [place] Start: 11-13-2021 Telephone encounter Aziz Bakhous [facility] Start: 07-21-2021 End: 07-27-2021 ambulatory [facility] Facility:[facility] Procedures Date Procedure Procedure Detail Performing Clinician Start: 02-20-[address] CARITO MCCORMICK . Comment on above: Performed By: #### A 1C #### [facility] [address] [place] [address] Dr. Miah Buck Start: 07-26-2021 Resection of Gallbla dder, Percutaneous Endoscopic Approach DAVON OLIVIER Start: 07-24-2021 DILATION OF COMMON H EPATIC DUCT, ENDO AMY T SANDRITA Plan of Treatment Date Care Activity Detail Author Start: 02-21-2028 Prostate Cancer Screening Discussion Prostate Cancer Screening Discussion [facility] Start: 2025 Pneumococcal vaccination Pneumococcal Vaccine (3 - PPSV23 or PCV20) [facility] Start: 10-27-2023 Serum Creatinine Serum Creatinine Cl [facility] Start: 06-06-2023 Covid-19 Vaccine () Covid-19 Vaccine () [facility] Start: 06-06-2023 Influenza vaccination Influenza Vacc ine (#1) [facility] Start: 01-21-2023 HEMOGLOBIN/HEMATOCRIT HEMOGLOBIN/HEM ATOCRIT [facility] Start: 01-21-2023 SERUM CREATININE SERUM CREATININE Cl [facility] Start: 11-28-2022 SERUM CREATININE SERUM CREATININE Cl [facility] Start: 06-06-2022 Influenza vaccination INFLUENZA (Sea son Ended) [facility] Start: 04-22-2022 Hemoglobin A1c/Hemoglobin.total in Blood HBA1C [facility] Start: 01-20-2022 End: 03-22-2022 Hemoglobin A1c/Hemoglobin.total in Blood HGB A1C Lab Routine Type 2 diabetes mellitus with other specified complication, with long-term current use of insulin (HCC) Pre-op evaluation Expected: 01/20/2022, Expires: 03/22/2022 [facility] Work Phone: Comment on above: Expected: 01/20/2022 , Expires: 03/22/2022 Start: 02-03-2021 COVID-19 VACCINE (2 - Booster for Mary Ellen series) COVID-19 VACCINE (2 - Booster for Mary Ellen series) [facility] Start: 2020 Hepatitis B Vaccine (1 of 3 - Risk 3-dose series) Hepatitis B Vaccine (1 of 3 - Risk 3-dose series) [facility] Start: 2020 RSV Vaccine (1 - 1-d ose 60+ series) RSV Vaccine (1 - 1-dose 60+ series) [facility] Start: 12-12-2018 Hemoglobin A1c/Hemoglobin.total in Blood HBA1C [facility] Start: 2015 PROSTATE CANCER SCREENING DISCUSSION PROSTATE CANCER SCREENING DISCUSSION [facility] Start: 2010 SHINGRIX VACCINE (1 of 2) SHINGRIX VACCINE (1 of 2) [facility] Start: 2005 COLOGUARD (FIT-DNA) COLOGUARD (FIT-D NA) [facility] Start: 2005 Colonoscopy COLONOSCOPY [facility] Start: 2005 COLORECTAL CANCER SCREENING COLORECTAL CANCER SCREENING [facility] Start: [address] COLONOGRAPHY [facility] Start: 2005 FECAL OCCULT BLOOD FECAL OCCULT BLOO D [facility] Start: 02-16-2006 SIGMOIDOSCOPY SIGMOIDOSCOPY [facility] Start: 1990 Zoledronic acid therapy Alpha- 1 Antitrypsin Deficiency Screening [facility] Start: 1979 Urine microalbumin profile [facility] Start: 1978 ANNUAL PCP TEAM CEMENT PAVER HAKEEM DISEASE VISIT ANNUAL PCP TEAM CHRONIC DISEASE VISIT [facility] Start: 1978 BP CONTROLLED (<130/80) BP CONTROLLE D (<130/80) [facility] Start: 1978 Hepatitis B surface antibody level LDL CHOLESTEROL [facility] Start: 1978 HEPATITIS C SCREENING HEPATITIS C SC REENING [facility] Start: 1978 HIV SCREENING HIV SCREENING [facility] Start: 1970 3 comp foot exam completed DIABETIC FOOT EXAM [facility] Start: 1970 Hepatitis B screening URINE AL BUMIN:CREATININE RATIO [facility] Start: 1970 Hepatitis C antibody , confirmatory test DILATED RETINAL EXAM [facility] Hemoglobin A1c/Hemoglobin.total in Blood HGB A1C Lab Routine Type 2 diabetes mellitus with other specified complication, with long-term current use of insulin (HCC) Pre-op evaluation 01/21/2022 9:30 AM EDT [facility] Work Phone: [facility] R Lab Routine 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) Ordered: 01/21/2022 [facility] Work Phone: Comment on above: [facility]: [facility] Immunization Date Immunization Notes Care Provider Jamar ingram 07-19-2021 influenza virus vacc ine, unspecified formulation Glenn Rose MD Work Phone: [facility] 07-07-2020 Influenza, injectabl e, Madin [place] Canine Kidney, preservative free, quadrivalent Harris Faustin MD Work Phone: [facility] 08-01-2019 influenza virus vacc ine, unspecified formulation Harris Faustin MD Work Phone: [facility] 08-10-2018 influenza, injectabl e, quadrivalent, preservative free Harris Faustin MD Work Phone: [facility] 07-24-2018 Influenza, injectabl e, Madin [place] Canine Kidney, preservative free, quadrivalent Harris Faustin MD Work Phone: [facility] 09-10-2017 influenza virus vacc ine, unspecified formulation Harris Faustin MD Work Phone: [facility] 08-11-2017 pneumococcal polysaccharide vaccine, 23 valent Harris Faustin MD Work Phone: [facility] 08-05-2016 influenza virus vacc ine, unspecified formulation Harris Faustin MD Work Phone: [facility] 11-13-2015 pneumococcal conjuga te vaccine, 13 valent Harris Faustin MD Work Phone: [facility] 07-18-2015 influenza virus vacc ine, whole virus Harris Faustin MD Work Phone: [facility] 07-06-2015 influenza, high dose seasonal, preservative-free Harris Faustin MD Work Phone: [facility] 09-13-2014 influenza, injectabl e, quadrivalent, preservative free Harris Faustin MD Work Phone: [facility] 06-25-2013 influenza, seasonal, injectable, preservative free Harris Faustin MD Work Phone: [facility] 06-17-2012 influenza, seasonal, injectable Harris Faustin MD Work Phone: [facility] 09-11-2010 pneumococcal polysaccharide vaccine, 23 valent Harris Faustin MD Work Phone: [facility] Payers Date Payer Category Payer Medicaid 2021 Medicare [id number] 2021 Medicare [id number] 2021 Unknown [id number] 2019 Unknown ANTHSUNDAY [place] [employer] AN[facility]UNDAY [facility] [id number] 2019-Present [phone] [facility] [id number] [place] [address] [facility] [id number] 2019 Medicaid [id number] 1960 Unknown [id number] [id number] 47 1960 Unknown [id number] 2.16.840.1.378105.3.579.2.5 93 1960 Unknown [id number] 2.16.840.1.566384.3.579.2.5 93 1960 Unknown [id number] 2.16.840.1.465662.3.579.2.5 93 1960 Unknown [id number] 2.16.840.1.774294.3.579.2.5 93 1960 Unknown [id number] 2.16.840.1.278477.3.579.2.5 93 1960 Unknown [id number] 2.16.840.1.383194.3.579.2.5 93 1960 Unknown [id number] 2.16.840.1.540074.3.579.2.5 93 1960 Unknown [id number] 2.16.840.1.478879.3.579.2.5 93 1960 Unknown [id number] 2.16.840.1.711123.3.579.2.5 93 1960 Unknown [id number] 2.16.840.1.510448.3.579.2.5 93 1960 Unknown [id number] 2.16.840.1.872834.3.579.2.5 93 1960 Unknown [id number] 2.16.840.1.231381.3.579.2.5 93 1960 Unknown [id number] 2.16.840.1.868259.3.579.2.5 93 1960 Unknown [id number] 2.16.840.1.176657.3.579.2.5 93 1960 Unknown [id number] 2.16.840.1.754579.3.579.2.5 93 1960 Unknown [id number] 2.16.840.1.278528.3.579.2.5 93 1960 Unknown [id number] 2.16.840.1.344906.3.579.2.5 93 1960 Unknown [id number] 2.16.840.1.802074.3.579.2.5 93 1960 Unknown [id number] 2.16.840.1.268918.3.579.2.5 93 1960 Unknown [id number] 2.16.840.1.075365.3.579.2.1 1959 Private Health Insurance [id number] Unknown [id number] Social History Date Type Detail Facility Start: 05-31-2013 End: 01-21-2022 Tobacco smoking status NHIS Never smoked tobacco [facility] Work Phone: Start: 05-31-2013 Tobacco use and exposure Former smokeless tobacco user [facility] Work Phone: End: 09-17-2015 History of tobacco use Chews Tobacco [facility] Work Phone: Start: 06-15-2021 End: 01-21-2022 Alcohol intake Current non-drinker of alcohol (finding) [facility] Start: 01-04-2020 History SDOH Alcohol Frequency 1 [facility] Start: 01-04-2020 Tobacco Comment 30 years [facility] Start: 1960 Sex Assigned At Male [facility] Start: 05-31-2013 End: 01-21-2022 Tobacco use and exposure User of smokeless tobacco [facility] Work Phone: Start: 01-11-2022 End: 01-21-2022 Exposure to SARS-CoV-2 (event) Not sure [facility] Start: 01-04-2020 End: 09-10-2020 Sex Assigned At [facility] History of tobacco use Cigarette Smoker [facility] Work Phone: Start: 01-04-2020 End: 09-10-2020 History of Social function [facility] How often to you hav e a drink containing alcohol? Never [facility] Average Number of Drinks Not on file [facility] Start: 01-03-2020 Gender identity Identifies as male gender (finding) [facility] Start: 01-03-2020 Sexual orientation Heterosexual (fin oneal) [facility] Medical Equipment Procedure Code Equipment Code Equipment Origin al Text Equipment Identifier Dates Ipg Activa Sc Db s Dual Extn - [id number] Start: 06-30-2013 Comment on above: Description: ACTIVA SC Multi-program Leonor rostimulator for deep Brain Stimulation Neurostimulator Activa Sc 0-10.5v 2-250hz 0-25.5ma 2.4inx2.2in .4in - [id number] Start: 07-24-2016 Neurostimulator Activa Sc 0-10.5v 2-250hz 0-25.5ma 2.4inx2.2in .4in - [id number] Start: 06-30-2019 Neurostimulator Activa Sc 0-10.5v 2-250hz 0-25.5ma 2.4inx2.2in .4in - [id number] Start: 01-30-2022 Clinical Notes 03-22-2021 to 09-19-2023 Telephone Encounter - Shane Parham PA-C - 09/12/2023 3:08 PM ESTTelephone Encounter - Rhianna Sena - 09/12/2023 2:41 PM Yossi Brito RN - 01/22/2022 9:14 AM EDT Note Date & Type Note Facility 09-19-2023 Note HNO ID: [id number] Author: Shane Parham PA-C Service: ? Author Type: Physician [facility] Manager Type: Progress Notes Filed: 09/19/2023 4:39 PM Note Text: [facility] - FOLLOW UP EVALUATION Luis Mccormick MD [address] [facility] [address] Dear Luis Mccormick MD: I had the pleasure of seeing Mr. Pierre for follow-up today. As you know he is a 62 year old ambidextrous male with a history of since . Subjective Interval History: Santos is here for DBS follow up. He recently went to check the DBS and it was found that the pt controller was not working. He was also having increased tremor. He has a new controller now but his tremors persist. He has made no changes in the DBS Over the past week he has noticed some speech changes. He has some difficulty speaking, some stuttering, but denies word finding issues. He did not seek care in a local ED as he does not like them. he has some burning chest pain that does not radiate, a feeling of occasional SOB. He has long standing neuropathy in the feet and lower legs, some subjective weakness in the legs as he states he has difficulty with stairs. several weeks ago he had a heart loop monitor implanted at an OSH. It is next to if not over the DBS IPG. Movement Disorders Medications Schedule - as of the start of the visit: Medications Questionnaires: In addition, the following areas that may be affected by abnormal involuntary movements were evaluated: Daily activities Difficulties with eating: Yes (moderate) Difficulties in dressing: Yes (mild) Difficulties with hygiene activities: Yes (slight) Difficulties with handwriting: Yes (severe) Difficulties with doing hobbies and other activities: Difficulties turning in bed: Yes (slight) Difficulties getting out of bed, car or chair: Yes (moderate) Tremors/Gait/Balance Shaking or tremors: Yes (severe) Walking and balance problems: Yes (moderate) Number of falls in the Last Month: 5 Gait freezing: Yes (moderate) Autonomic/Pain Lightheadeness on standing: Yes (severe) Urinary problems: Yes (mild) Constipation problems: 0 (none) Pain and other sensations: Yes (severe) Speech/Swallowing Speech problems: Yes (moderate) Droolin (none) Chewing and swallowing problems: Yes (moderate) Sleep/Fatigue Sleep problems: Yes (moderate) Daytime sleepiness: Yes (moderate) Fatigue: Yes (severe) Mood/Behavior Depression: PHQ-9 Score: 21 usually representing severe (20-27) depression. Anxiety: LEEROY-7 Total Score: 6 usually representing mild (5-9) anxiety. Finally, the following table shows the patient's overall global physical and mental health using the PROMIS scale: PROMIS-10 Flowsheet Row Office Visit from 09/19/2023 in [facility] PAT from 01/21/2022 in Pre Anesthesia Global Physical Health T Score 26.7 42.3 Global Mental Health T Score -- 56 0-10 Standard Pain Scale 2 3 *PROMIS-10 scoring scale: mean = 50, over 50 is above average, under 50 is below average In addition, the following Parkinson Lifestyle-associated features were evaluated: Conditions Prior to Dx: Depression: Yes Anxiety: No Melanoma: No Constipation: Yes Yelling: Yes Head Trauma: Yes Habits/exposures Prior to Dx Smoking: No Caffeinated coffee (1-cup+): No Caffeinated soda/tea (2 cups+): No Alcohol (1 bottle/shot/glass+): No Exercise (3x/wk+): Yes (but quit) Ibuprofen use (1x/wk+): Yes (but quit) Pesticides: No Welding: Yes (but quit) ALLERGIES Allergen Reactions Beta Blockers [Beta* Itching, Other: See Comments Hydralazine Unknown Headache, nausea, sick Neurontin [Gabapent* Other: See Comments, Unknown Unknown Valium [Diazepam] Unknown Was on the ground after took it Current Outpatient Medications Medication Sig Insulin Wickett, Disposable, (BD INSULIN PEN NEEDLE UF) 29 gauge x 1/2 Use as directed sq bid cetirizine (ZYRTEC) 10 mg tablet Take 1 tablet by mouth once daily. metFORMIN (GLUCOPHAGE) 500 mg tablet Take 1 tablet by mouth two times a day. candesartan (ATACAND) 8 mg tablet Take 8 mg by mouth once daily. albuterol HFA (PROVENTIL HFA, VENTOLIN HFA) 90 mcg/actuation inhaler albuterol sulfate HFA 90 mcg/actuation aerosol inhaler NIFEdipine ER (PROCARDIA XL) 90 mg 24 hr tablet nifedipine ER 90 mg tablet,extended release 24 hr take 1 tablet by mouth once daily furosemide (LASIX) 40 mg tablet Take 1 tablet by mouth twice daily. atorvastatin (LIPITOR) 10 mg tablet Take 1 tablet by mouth once daily. oxybutynin ER (DITROPAN XL) 10 mg 24 hr tablet Take 10 mg by mouth once daily. pantoprazole DR (PROTONIX) 40 mg tablet Take 40 mg by mouth once daily. warfarin (COUMADIN) 10 mg tablet Take 1 tablet by mouth every 48 hours. Take 7.5mg one day, then 10mg the other day (Patient taking differently: Take 5 mg by mouth once daily.) montelukast (SINGULAIR) 10 mg tablet Take 10 mg by mouth daily at bedtime. c (more content not included)... [facility] 09-12-2023 Miscellaneous Notes spoke with pt today and he is getting a warning on his device that may indicate EOS but may be a connection failure. The connector may be faulty. He has a heart monitor near the IPG and that be a factor. I will have a [employer] specialist reach out to him. Mr. Pierre phoned again - reports that he needs to speak with someone prior to the weekend. NI PHONE Name of caller : self Patient identified by Name and Date of . ( Andry Pierre, 1960). Yes Reason for Call : Patient with DBS says his controller has a triangle with an exclamation point on it. He says he is shaking very badly. He c/o being light headed and falling. He saw local neurologist who tried to have it checked but they said he needs to have it checked by [facility]. He says he started getting shaky about 2 months ago and it's getting worse. He says he also has a loop monitor implanted in January. Note: His info has changed (address, phone, etc.) and was transferred to update his registration. Number to return call Okay to leave a message ? Last office visit 01/21/22 with SN documented in this encounter [facility] 08-19-2023 Note Patient here for 3 m o follow up chest pain, diastolic dysfunction, hx of DVT/PE, and syncope. Denies chest pain and SOB. C/o fatigue and weakness. Says he saw his eye doctor last week and was told he had blood behind his retina . Denies bleeding on warfarin, but has had a few falls. He says falls are due to LE weakness, not syncope. Says BP has been elevated lately. Review of Systems Constitutional: Positive for malaise/fatigue and weight loss (11# since May 2023). Cardiovascular: Positive for leg swelling (intermittent). Musculoskeletal: Positive for arthritis, back pain, falls, joint pain, muscle weakness and myalgias. Gastrointestinal: Positive for nausea. Neurological: Positive for excessive daytime sleepiness, dizziness (worsening), light-headedness and weakness. All other systems reviewed and are negative. [facility] 08-19-2023 Note PA Cardiology Consul t Note Reason for Consultation: Syncope, s/p loop implant 01/09/23 08/19/23: Here for follow up Continues to LE weakness d/t chronic back pain Loop data review shows no arrhythmia 05/21/23 HPI: here for follow up for loop data review No significant arrhythmias to correlate to his symptoms He has been experiencing lightheadedness throughout the day and shortness of breath with exertion and also experiencing exertional chest discomfort. He does not seem to be correlated with his bradycardic events. Heart rate today is in the 70s and blood pressure is 133/80 he is also been experiencing a lot of palpitations and racing heart with loop monitor does not show any arrhythmias related to the. He does get CP from time to time and is known to had non-obstuctive CAD with sluggish flow, did not tolerate nitrates due to headache. Has been having chronic back pain issues as well ---- 10/2022 HPI: He is here for follow-up He was to have loop placed but his INR was 10 at the time and therefore procedure was deferred. Patient is hesitant to moving forward with procedure. I discussed with him the benefits of having a loop and monitoring for his history of symptomatic bradycardia, CVAx3 and past syncopal episodes. He has had some palpitations recently but otherwise denies chest pain, shortness of breath, lightheadedness, SIMMONS, orthopnea, worsening LE edema. 06/28/[address] Rodriguez HPI: Andry Pierre is a 62 y.o. year old with past medical history of hypertension,, CAD with a history of PCI, CKD stage II, PAM with a history of prothrombin gene mutation and known episodes of PE and DVT who is on AC. Patient reported a history of syncope that was sudden onset. Patient did not endorse any history of vagal prodrome. During last visit, he was offered a 30d event monitor which he just got done. He had some episodes while wearing but review of these has shown no correlating AV block or arrythmia He again has CP and is currently on GDMT for CAD. PMH: CAD, HTN, DM2, CKD, PAM PSH: Past Surgical History: Procedure Laterality Date CHOLECYSTECTOMY SH: Social Determinants of Health Tobacco Use: Low Risk (05/21/2023) Patient History Smoking Tobacco Use: Never Smokeless Tobacco Use: Never Passive Exposure: Not on file Alcohol Use: Not on file Financial Resource Strain: Not on file Food Insecurity: Not on file Transportation Needs: Not on file Physical Activity: Not on file Stress: Not on file Social Connections: Not on file Intimate Partner Violence: Not on file Depression: Not on file Housing Stability: Not on file Meds: Current Outpatient Medications on File Prior to Visit Medication Sig Dispense Refill atorvastatin (Lipitor) 40 mg tablet Take 40 mg by mouth in the morning. candesartan (Atacand) 8 mg tablet Take 4 mg by mouth at bedtime. cefdinir (Omnicef) 300 mg capsule Take 600 mg by mouth in the morning. cetirizine (ZyrTEC) 10 mg tablet Take 10 mg by mouth in the morning and at bedtime. cholecalciferol, vitamin D3, 50 mcg (2,000 unit) capsule Take 2,000 Units by mouth in the morning. cloNIDine (Catapres) 0.1 mg tablet Take 0.1 mcg by mouth in the morning and at bedtime. furosemide (Lasix) 40 mg tablet Take 40 mg by mouth in the morning and at bedtime. indomethacin (Indocin) 50 mg capsule TAKE 1 CAPSULE BY MOUTH THREE TIMES A DAY NEEDED FOR PAIN WITH FOOD OR MILK insulin degludec (Tresiba FlexTouch) 100 unit/mL (3 mL) injection every 12 (twelve) hours. Jardiance 10 mg 10 mg 1 (one) time each day. metFORMIN (Glucophage) 500 mg tablet Take 500 mg by mouth with breakfast and with evening meal. montelukast (Singulair) 10 mg tablet Take 1 tablet by mouth in the morning. NIFEdipine XL (Procardia XL) 90 mg 24 hr tablet Take 1 tablet (90 mg) by mouth in the morning. 90 tablet 3 oxybutynin XL (Ditropan-XL) 10 mg 24 hr tablet Take 10 mg by mouth in the morning. pantoprazole (ProtoNix) 40 mg EC tablet Take 40 mg by mouth before breakfast. potassium chloride CR (K-Tab) 20 mEq ER tablet Take 20 mEq by mouth in the morning. tiotropium (Spiriva) [address] 1 capsule into inhaler and inhale in the morning. topiramate 50 mg tablet Take 100 mg by mouth in the morning and at bedtime. traMADol (Ultram) 50 mg tablet Take 100 mg by mouth in the morning and at bedtime. warfarin (Coumadin) 5 mg tablet Take 15 mg by mouth in the morning. Coumadin levels followed by [facility] allopurinol (Zyloprim) 100 mg tablet Take 100 mg by mouth 1 (one) time each day at the same time. amLODIPine (Norvasc) 5 mg tablet Take 1 tablet by mouth in the morning. aspirin 81 mg EC tablet Take 1 tablet by mouth in the morning. baclofen (Lioresal) 10 mg tablet TAKE 1/2-1 TABLET BY JUSTYN (more content not included)... [facility] 07-10-2023 Miscellaneous Notes Spoke with tour sales representative from Dr. Kumar's office, they report they received response from us regarding surgical clearance letter indicating that safety of RF ablation has not been established for patients with DBS and therefore is not recommended per [employer]. Kerwin Brito RN Via fax recd request from Dr. Kumar for surgery clearance that pt may turn off DBS during radiofrequency ablation (copy of request available in scanned docs). Kerwin if okay I can process request in Docus[employer] for Dr. Rose's signature (tp). documented in this encounter [facility] 05-21-2023 Note PA Cardiology Consul t Note Reason for Consultation: Syncope, 3 month follow up, s/p loop implant 01/09/23 HPI: here for follow up for loop data review No significant arrhythmias to correlate to his symptoms He has been experiencing lightheadedness throughout the day and shortness of breath with exertion and also experiencing exertional chest discomfort. He does not seem to be correlated with his bradycardic events. Heart rate today is in the 70s and blood pressure is 133/80 he is also been experiencing a lot of palpitations and racing heart with loop monitor does not show any arrhythmias related to the. He does get CP from time to time and is known to had non-obstuctive CAD with sluggish flow, did not tolerate nitrates due to headache. Has been having chronic back pain issues as well ---- 10/2022 HPI: He is here for follow-up He was to have loop placed but his INR was 10 at the time and therefore procedure was deferred. Patient is hesitant to moving forward with procedure. I discussed with him the benefits of having a loop and monitoring for his history of symptomatic bradycardia, CVAx3 and past syncopal episodes. He has had some palpitations recently but otherwise denies chest pain, shortness of breath, lightheadedness, SIMMONS, orthopnea, worsening LE edema. 06/28/[address] Rodriguez HPI: Andry Pierre is a 62 y.o. year old with past medical history of hypertension,, CAD with a history of PCI, CKD stage II, PAM with a history of prothrombin gene mutation and known episodes of PE and DVT who is on AC. Patient reported a history of syncope that was sudden onset. Patient did not endorse any history of vagal prodrome. During last visit, he was offered a 30d event monitor which he just got done. He had some episodes while wearing but review of these has shown no correlating AV block or arrythmia He again has CP and is currently on GDMT for CAD. PMH: CAD, HTN, DM2, CKD, PAM PSH: Past Surgical History: Procedure Laterality Date CHOLECYSTECTOMY SH: Social Determinants of Health Tobacco Use: Low Risk (02/20/2023) Patient History Smoking Tobacco Use: Never Smokeless Tobacco Use: Never Passive Exposure: Not on file Alcohol Use: Not on file Financial Resource Strain: Not on file Food Insecurity: Not on file Transportation Needs: Not on file Physical Activity: Not on file Stress: Not on file Social Connections: Not on file Intimate Partner Violence: Not on file Depression: Not on file Housing Stability: Not on file Meds: Current Outpatient Medications on File Prior to Visit Medication Sig Dispense Refill allopurinol (Zyloprim) 100 mg tablet Take 100 mg by mouth 1 (one) time each day at the same time. atorvastatin (Lipitor) 40 mg tablet Take 40 mg by mouth in the morning. BD Ultra-Fine Mini Pen Needle 31 gauge x 3/16 needle USE 1 NEEDLE SUBCUTANEOUSLY TWICE A DAY candesartan (Atacand) 8 mg tablet Take 8 mg by mouth at bedtime. cefdinir (Omnicef) 300 mg capsule Take 600 mg by mouth in the morning. cetirizine (ZyrTEC) 10 mg tablet Take 10 mg by mouth in the morning. cetirizine (ZyrTEC) 10 mg tablet Take 10 mg by mouth in the morning and at bedtime. cholecalciferol, vitamin D3, 50 mcg (2,000 unit) capsule Take 2,000 Units by mouth in the morning. cloNIDine (Catapres) 0.1 mg tablet Take 0.1 mcg by mouth in the morning and at bedtime. furosemide (Lasix) 40 mg tablet Take 40 mg by mouth in the morning and at bedtime. insulin degludec (Tresiba FlexTouch) 100 unit/mL (3 mL) injection every 12 (twelve) hours. linaCLOtide (Linzess) 72 mcg capsule Take 72 mcg by mouth if needed each day. metFORMIN (Glucophage) 500 mg tablet Take 500 mg by mouth with breakfast and with evening meal. montelukast (Singulair) 10 mg tablet Take 10 mg by mouth at bedtime. NIFEdipine XL (Procardia XL) 90 mg 24 hr tablet Take 1 tablet (90 mg) by mouth in the morning. 90 tablet 3 oxybutynin XL (Ditropan-XL) 10 mg 24 hr tablet Take 10 mg by mouth in the morning. pantoprazole (ProtoNix) 40 mg EC tablet Take 40 mg by mouth before breakfast. potassium chloride CR (K-Tab) 20 mEq ER tablet Take 20 mEq by mouth in the morning. tiotropium (Spiriva) [address] 1 capsule into inhaler and inhale in the morning. topiramate 50 mg tablet Take 100 mg by mouth in the morning and at bedtime. traMADol (Ultram) 50 mg tablet Take 100 mg by mouth in the morning and at bedtime. warfarin (Coumadin) 5 mg tablet Take 15 mg by mouth in the morning. Coumadin levels followed by [facility] [DISCONTINUED] NIFEdipine XL (Procardia XL) 90 mg 24 hr tablet TAKE 1 TABLET BY MOUTH EVERY DAY 90 tablet 2 No current facility-administered medications on file prior to visit. ROS: Cardio Basic Cardiovascular Symptoms: no l (more content not included)... [facility] 02-20-2023 Note [place] Cardiology Consul t Note Reason for Consultation: Syncope HPI: patient here s/p loop implant 01/09/2023 he had a wound check reported he had multiple episodes of heart fluttering and weakness. His legs gave out but he does not think he passed out but he did not feel well for about 90 minutes. loop device reviewedAnd there were several bradycardic events some nocturnal and some in the care provider. No marked patient events he is on nifedipine which is a calcium channel neema for hypertension He has been experiencing lightheadedness throughout the day and shortness of breath with exertion and also experiencing exertional chest discomfort. He does not seem to be correlated with his bradycardic events. Heart rate today is in the 70s and blood pressure is 133/80 he is also been experiencing a lot of palpitations and racing heart with loop monitor does not show any arrhythmias related to the. I discussed with him we can start with a BNP and if that is not indicative of any acute heart failure exacerbation I will proceed with stress test. patient had heart cath 2019 with nonobstructive cors ---- 10/2022 HPI: He is here for follow-up He was to have loop placed but his INR was 10 at the time and therefore procedure was deferred. Patient is hesitant to moving forward with procedure. I discussed with him the benefits of having a loop and monitoring for his history of symptomatic bradycardia, CVAx3 and past syncopal episodes. He has had some palpitations recently but otherwise denies chest pain, shortness of breath, lightheadedness, SIMMONS, orthopnea, worsening LE edema. 06/28/[address] Rodriguez HPI: Andry Pierre is a 62 y.o. year old with past medical history of hypertension,, CAD with a history of PCI, CKD stage II, PAM with a history of prothrombin gene mutation and known episodes of PE and DVT who is on AC. Patient reported a history of syncope that was sudden onset. Patient did not endorse any history of vagal prodrome. During last visit, he was offered a 30d event monitor which he just got done. He had some episodes while wearing but review of these has shown no correlating AV block or arrythmia He again has CP and is currently on GDMT for CAD. PMH: CAD, HTN, DM2, CKD, PAM PSH: Past Surgical History: Procedure Laterality Date CHOLECYSTECTOMY SH: Social Determinants of Health Tobacco Use: Low Risk Smoking Tobacco Use: Never Smokeless Tobacco Use: Never Passive Exposure: Not on file Alcohol Use: Not on file Financial Resource Strain: Not on file Food Insecurity: Not on file Transportation Needs: Not on file Physical Activity: Not on file Stress: Not on file Social Connections: Not on file Intimate Partner Violence: Not on file Depression: Not on file Housing Stability: Not on file Meds: Current Outpatient Medications on File Prior to Visit Medication Sig Dispense Refill allopurinol (Zyloprim) 100 mg tablet Take 100 mg by mouth 1 (one) time each day at the same time. atorvastatin (Lipitor) 40 mg tablet Take 40 mg by mouth in the morning. BD Ultra-Fine Mini Pen Needle 31 gauge x 3/16 needle USE 1 NEEDLE SUBCUTANEOUSLY TWICE A DAY candesartan (Atacand) 8 mg tablet Take 8 mg by mouth at bedtime. cefdinir (Omnicef) 300 mg capsule Take 600 mg by mouth in the morning. cetirizine (ZyrTEC) 10 mg tablet Take 10 mg by mouth in the morning. cetirizine (ZyrTEC) 10 mg tablet Take 10 mg by mouth in the morning and at bedtime. cholecalciferol, vitamin D3, 50 mcg (2,000 unit) capsule Take 2,000 Units by mouth in the morning. cloNIDine (Catapres) 0.1 mg tablet Take 0.1 mcg by mouth in the morning and at bedtime. furosemide (Lasix) 40 mg tablet Take 40 mg by mouth in the morning and at bedtime. insulin degludec (Tresiba FlexTouch) 100 unit/mL (3 mL) injection every 12 (twelve) hours. linaCLOtide (Linzess) 72 mcg capsule Take 72 mcg by mouth if needed each day. metFORMIN (Glucophage) 500 mg tablet Take 500 mg by mouth with breakfast and with evening meal. montelukast (Singulair) 10 mg tablet Take 10 mg by mouth at bedtime. NIFEdipine XL (Procardia XL) 90 mg 24 hr tablet TAKE 1 TABLET BY MOUTH EVERY DAY 90 tablet 2 pantoprazole (ProtoNix) 40 mg EC tablet Take 40 mg by mouth before breakfast. potassium chloride CR (K-Tab) 20 mEq ER tablet Take 20 mEq by mouth in the morning. topiramate 50 mg tablet Take 100 mg by mouth in the morning and at bedtime. traMADol (Ultram) 50 mg tablet Take 100 mg by mouth in the morning and at bedtime. warfarin (Coumadin) 5 mg tablet Take 15 mg by mouth in the morning. Coumadin levels followed by [facility] oxybutynin XL (Ditropan-XL) 10 mg 24 hr tablet Take 10 mg by mouth in the morning. No current facility-administered medications on file alia (more content not included)... [facility] 02-20-2023 Note Patient is here toda y for a one month follow up. Review of Systems Constitutional: Positive for malaise/fatigue and weight loss. HENT: Positive for ear pain. Eyes: Positive for vision loss in left eye and vision loss in right eye. Cardiovascular: Positive for chest pain. Patient states he has been having chest pain since he got the monitor place Respiratory: Positive for shortness of breath. Musculoskeletal: Positive for back pain, joint pain, joint swelling, muscle cramps and muscle weakness. Neurological: Positive for headaches, light-headedness, loss of balance, numbness and weakness. All other systems reviewed and are negative. [facility] 01-17-2023 Note Patient here for wou nd check s/p loop recorder implant 01/09/[address] Rodriguez. [facility] 04-14-2023 Note Cardiovascular Medic ine [facility] SUBJECTIVE Chief Complaint Patient presents with Wound Check Andry Pierre is a 62 y.o. male here for follow-up. HPI He had a LOOP recorder implanted 01/09/2023. He had an episode about 6 days ago where he got out of his truck and he felt like his heart was fluttering and he felt weakness and his legs gave out on him. He does not think he passed out but did not feel well for some time, about 90 minutes. His heart was racing the whole time and fluttering. He c/o fatigue. His previous syncopal episodes he would just go down without any warning. BP averaging 100-110s/80s. Patient Active Problem List Diagnosis Acute, but ill-defined, cerebrovascular disease Asthma Benign shuddering attacks CHF (congestive heart failure) ([facility]) Chronic deep vein thrombosis (DVT) of proximal vein of both lower extremities ([facility]) CKD (chronic kidney disease) Congenital heart disease COPD (chronic obstructive pulmonary disease) ([facility]) History of DVT (deep vein thrombosis) Diastolic dysfunction Difficult intravenous access Dyslipidemia Edema of lower extremity Elevated PSA Esophageal reflux Essential hypertension Hematuria, gross Hyperlipidemia Hypokalemia Low back pain BMI 45.0-49.9, adult ([facility]) Obstructive sleep apnea syndrome Other diseases of pharynx, not elsewhere classified(478.29) Parkinson's disease ([facility]) History of pulmonary embolus (PE) Recurrent major depression in partial remission ([facility]) SOB (shortness of breath) Subarachnoid bleed ([facility]) Tracheal stenosis Tremor Type 2 diabetes mellitus without complication ([facility]) Urge incontinence of urine Urinary tract infection without hematuria Volume overload Syncope and collapse 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 ([facility]) Past Medical History: Diagnosis Date Chronic kidney disease Diabetes mellitus ([facility]) Dyslipidemia Hypertension Obstructive sleep apnea Family History Problem Relation Name Age of Onset Coronary artery disease Mother Coronary artery disease Father Social History Tobacco Use Smoking status: Never Smokeless tobacco: Never Vaping Use Vaping Use: Never used Substance Use Topics Alcohol use: Not Currently Drug use: Never Allergies Allergen Reactions Beta-Blockers (Beta-Adrenergic Blocking Agts) Headache, Itching and Other Diazepam Unknown Was on the ground after took it Was on the ground after took it Gabapentin Other and Unknown Unknown Unknown Hydralazine Unknown Headache, nausea, sick Headache, nausea, sick Review of Systems Constitutional: Positive for malaise/fatigue. Negative for chills and fever. Cardiovascular: Positive for irregular heartbeat and near-syncope. Musculoskeletal: Positive for muscle weakness. OBJECTIVE Visit Vitals BP 113/81 (Patient Position: Standing) Pulse 83 Smoking Status Never Medications: Current Outpatient Medications: candesartan (Atacand) 8 mg tablet, Take 8 mg by mouth at bedtime., Disp: , Rfl: atorvastatin (Lipitor) 40 mg tablet, Take 40 mg by mouth in the morning., Disp: , Rfl: cetirizine (ZyrTEC) 10 mg tablet, Take 10 mg by mouth in the morning., Disp: , Rfl: cholecalciferol, vitamin D3, 50 mcg (2,000 unit) capsule, Take 2,000 Units by mouth in the morning., Disp: , Rfl: cloNIDine (Catapres) 0.1 mg tablet, Take 0.1 mcg by mouth in the morning and at bedtime., Disp: , Rfl: furosemide (Lasix) 40 mg tablet, Take 40 mg by mouth in the morning and at bedtime., Disp: , Rfl: linaCLOtide (Linzess) 72 mcg capsule, Take 72 mcg by mouth if needed each day., Disp: , Rfl: metFORMIN (Glucophage) 500 mg tablet, Take 500 mg by mouth with breakfast and with evening meal., Disp: , Rfl: montelukast (Singulair) 10 mg tablet, Take 10 mg by mouth at bedtime., Disp: , Rfl: NIFEdipine XL (Procardia XL) 90 mg 24 hr tablet, TAKE 1 TABLET BY MOUTH EVERY DAY, Disp: 90 tablet, Rfl: 2 oxybutynin XL (Ditropan-XL) 10 mg 24 hr tablet, Take 10 mg by mouth in the morning., Disp: , Rfl: pantoprazole (ProtoNix) 40 mg EC tablet, Take 40 mg by mouth before breakfast., Disp: , Rfl: potassium chloride CR (K-Tab) 20 mEq ER tablet, Take 20 mEq by mouth in the morning., Disp: , Rfl: topiramate 50 mg tablet, Take 100 mg by mouth in the morning and at bedtime., Disp: , Rfl: traMADol (Ultram) 50 mg tablet, Take 100 mg by mouth in the morning and at bedtime., Disp: , Rfl: warfarin (Coumadin) 5 mg tablet, Take 15 mg by mouth in the morning. Coumadin levels followed by [facility], Disp: , Rfl: Physical Exam Constitutional: Appearance: Normal appearance. He is obese. HENT: Head: Normocephalic and atraumatic. Mouth/Throat: Mouth: Mucous membranes are moist. Pharynx: Oropharynx is clear. Eyes: Extraocular Movements: Extraocular movements intact. Pupils: Pupils are equal, round, and reactive to light. C (more content not included)... [facility] 01-09-2023 Note LOOP IMPLANT PROCEDU RE NOTE DATE OF PROCEDURE: 01/09/2023 PERFORMING PHYSICIAN: Dr. Lemuel Rodriguez ENGINEER STATION MAINLINE: Dr Lucy Bella (Primary) INDICATIONS FOR PROCEDURE: 1. SVT/AF surveillance CONSENT: Patient LOCATION: EP lab PROCEDURAL SEDATION: None FLUOROSCOPY TIME: 0min PREPARATION: Preoperative antibiotics was administered. EBL:5cc SPECIMEN REMOVED: None PROCEDURES PERFORMED: 1. LOOP implant PROCEDURE NOTE: Patient was brought to the EP lab in the post absorptive state. A procedural pause was performed verifying the patient, the procedure. Sterile prep and drape were performed over the left precordium and anesthesia with 1% lidocaine was followed by a small incision was made in the 3rd intercostal space near the sternum on the left using the [employer] tool. The loop recorder was then injected subcutaneously and noted to have good sensing parameters. Technical details of the device as noted below. The skin was then closed with 3-0 absorbable monofilament suture and glue applied to hold the edges together. Tegaderm was applied to cover the wound. The patient appeared to tolerate the procedure well and was returned to the room in stable condition. No complications were immediately observed. Sensin.18mV. IMPRESSION: Successful placement of LOOP implant with excellent sensing parameters. COMPLICATIONS: None RECOMMENDATIONS: 1. Occlusive dressing to be changed after 7 days. 2. Do not wet the incision. Lemuel Rodriguez MD Cardiac Electrophysiology. [facility] 01-06-2023 Note [facility] Consul t Note Reason for Consultation: Syncope HPI: He is here for follow-up He was to have loop placed but his INR was 10 at the time and therefore procedure was deferred. Patient is hesitant to moving forward with procedure. I discussed with him the benefits of having a loop and monitoring for his history of symptomatic bradycardia, CVAx3 and past syncopal episodes. He has had some palpitations recently but otherwise denies chest pain, shortness of breath, lightheadedness, SIMMONS, orthopnea, worsening LE edema. 06/28/[address] Rodriguez HPI: Andry Pierre is a 62 y.o. year old with past medical history of hypertension,, CAD with a history of PCI, CKD stage II, PAM with a history of prothrombin gene mutation and known episodes of PE and DVT who is on AC. Patient reported a history of syncope that was sudden onset. Patient did not endorse any history of vagal prodrome. During last visit, he was offered a 30d event monitor which he just got done. He had some episodes while wearing but review of these has shown no correlating AV block or arrythmia He again has CP and is currently on GDMT for CAD. PMH: CAD, HTN, DM2, CKD, PAM PSH: Past Surgical History: Procedure Laterality Date CHOLECYSTECTOMY SH: Social Determinants of Health Tobacco Use: Low Risk Smoking Tobacco Use: Never Smokeless Tobacco Use: Never Passive Exposure: Not on file Alcohol Use: Not on file Financial Resource Strain: Not on file Food Insecurity: Not on file Transportation Needs: Not on file Physical Activity: Not on file Stress: Not on file Social Connections: Not on file Intimate Partner Violence: Not on file Depression: Not on file Housing Stability: Not on file Meds: Current Outpatient Medications on File Prior to Visit Medication Sig Dispense Refill albuterol 90 mcg/actuation inhaler Inhale 2 puffs every 6 (six) hours if needed. amLODIPine (Norvasc) 5 mg tablet Take 5 mg by mouth in the morning. atorvastatin (Lipitor) 40 mg tablet Take 40 mg by mouth in the morning. candesartan (Atacand) 16 mg tablet Take 16 mg by mouth in the morning. cetirizine (ZyrTEC) 10 mg tablet Take 10 mg by mouth in the morning. cholecalciferol, vitamin D3, 50 mcg (2,000 unit) capsule Take 2,000 Units by mouth in the morning. cloNIDine (Catapres) 0.1 mg tablet 0.1 mcg. furosemide (Lasix) 40 mg tablet Take 40 mg by mouth in the morning and at bedtime. HYDROcodone-acetaminophen ([place]) 5-325 mg tablet Take 1 tablet by mouth every 8 (eight) hours if needed. hyoscyamine 0.[address] 1 TABLET UNDER TONGUE FOUR TIMES A DAY NEEDED BEFORE EACH MEAL AND BEDTIME insulin degludec (Tresiba FlexTouch U-200) 200 unit/mL (3 mL) injection Inject 40 Units under the skin in the morning and at bedtime. insulin detemir (Levemir FlexTouch U-100 Insuln) 100 unit/mL (3 mL) pen INJECT 45 UNITS UNDER THE SKIN TWICE DAILY levalbuterol (Xopenex) 1.25 mg/3 mL nebulizer solution Inhale 1 ampule every 4 (four) hours if needed. lidocaine (Lidoderm) 5 % patch Apply 5 patches topically 1 (one) time each day. linaCLOtide (Linzess) 72 mcg capsule Take 72 mcg by mouth if needed each day. metFORMIN (Glucophage) 500 mg tablet Take 500 mg by mouth with breakfast and with evening meal. montelukast (Singulair) 10 mg tablet Take 10 mg by mouth at bedtime. NIFEdipine XL (Procardia XL) 90 mg 24 hr tablet TAKE 1 TABLET BY MOUTH EVERY DAY 90 tablet 2 oxybutynin XL (Ditropan-XL) 10 mg 24 hr tablet Take 10 mg by mouth in the morning. pantoprazole (ProtoNix) 40 mg EC tablet Take 40 mg by mouth before breakfast. potassium chloride CR (K-Tab) 20 mEq ER tablet Take 20 mEq by mouth in the morning. tiotropium (Spiriva with HandiHaler) [address] 1 capsule into inhaler and inhale if needed each day. tiZANidine (Zanaflex) 4 mg tablet Take 4 mg by mouth in the morning and at bedtime. topiramate 50 mg tablet Take 100 mg by mouth in the morning and at bedtime. traMADol (Ultram) 50 mg tablet Take 100 mg by mouth in the morning and at bedtime. umeclidinium (Incruse Ellipta) 62.5 mcg/actuation inhalation Inhale 1 puff in the morning. warfarin (Coumadin) 5 mg tablet Take 15 mg by mouth in the morning. Coumadin levels followed by [facility] No current facility-administered medications on file prior to visit. ROS: Cardio Basic Cardiovascular Symptoms: no lightheadedness, no leg edema, no syncope, no orthopnea, no PND, no claudication, Constitutional Constitutional: no fever, no night sweats, no significant weight gain, no significant weight loss, no exercise intolerance Eyes Eyes: no dry eyes, no irritation, no vision change ENMT Ears: no difficulty hearing, no ear pain Nose: no frequent nosebleeds, Mouth/Throat: no sore throat, no bleeding gums, no snoring, no dry mouth, (more content not included)... [facility] 01-06-2023 Note Patient here for 6 m o follow up syncope, CAD, hx of DVT. He did not ever have loop monitor placed. Had labs in Oct 2022. Denies recurrent syncope. Still has intermittent chest pain and SOB. Review of Systems Cardiovascular: Positive for chest pain (intermittent), dyspnea on exertion and palpitations (intermittent). Respiratory: Positive for shortness of breath. Musculoskeletal: Positive for back pain and joint pain. Neurological: Positive for headaches and light-headedness. All other systems reviewed and are negative. [facility] 01-06-2023 Note [place] Cardiology Consul t Note Reason for Consultation: Syncope HPI: He is here for follow-up He was to have loop placed but his INR was 10 at the time and therefore procedure was deferred. Patient is hesitant to moving forward with procedure. I discussed with him the benefits of having a loop and monitoring for his history of symptomatic bradycardia, CVAx3 and past syncopal episodes. He has had some palpitations recently but otherwise denies chest pain, shortness of breath, lightheadedness, SIMMONS, orthopnea, worsening LE edema. 06/28/[address] Rodriguez HPI: Andry Pierre is a 62 y.o. year old with past medical history of hypertension,, CAD with a history of PCI, CKD stage II, PAM with a history of prothrombin gene mutation and known episodes of PE and DVT who is on AC. Patient reported a history of syncope that was sudden onset. Patient did not endorse any history of vagal prodrome. During last visit, he was offered a 30d event monitor which he just got done. He had some episodes while wearing but review of these has shown no correlating AV block or arrythmia He again has CP and is currently on GDMT for CAD. PMH: CAD, HTN, DM2, CKD, PAM PSH: Past Surgical History: Procedure Laterality Date CHOLECYSTECTOMY SH: Social Determinants of Health Tobacco Use: Low Risk Smoking Tobacco Use: Never Smokeless Tobacco Use: Never Passive Exposure: Not on file Alcohol Use: Not on file Financial Resource Strain: Not on file Food Insecurity: Not on file Transportation Needs: Not on file Physical Activity: Not on file Stress: Not on file Social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 and answered all questions. Kerwin Brito RN NI PHONE Name of caller : self Relationship to patient : Self If not self Will need patient permission to release results or disclose health information with called documented in fyi. Was permission obtained from patient ? Patient identified by Name and Date of . ( Andry Pierre, 1960). Reason for Call : Patient calls today stating that he had DBS surgery in 2019. He states he is now getting an MARIA G message. The alert was noticed for the first time today. He was last seen in [facility] by Ming 11/08/2019. Number to return call [phone] Okay to leave a message ? Yes Last office visit 11/2019 with JS Next office visit with not scheduled Thank you calling [facility]. You will receive a return call within 48 hours ( or 2 business days if close to the weekend). If you feel that this is an urgent issue and needs immediate attention, it is recommended that you contact your primary care provider office or proceed to your nearest Urgent Care Center of Emergency Room ED for evaluation/treatment. documented in this encounter [facility] 11-26-2021 Evaluation note Encounter Date Diagnosis Assessment Notes Nov, Stage 3b chronic kidney disease (CKD) (ICD-10 - N18.32) appiris Other 02-08-2022 Evaluation note* Encounter Date Diagnosis Assessment Notes Treatment Notes Treatment Clinical Notes Nov, Stage 3b chronic kid rocky disease (CKD) (ICD-10 - N18.32) Patient likely has diabetic nephropathy. Baseline creatinine seems around 1.3-1.4 from July, lab. Worsening kidney function likely related to prerenal hyperglycemia induced osmotic diuresis and being on Lasix Last creatinine from September 2021 is 1. 7 mg deciliter. Patient needs better control of diabetes to attenuate chronic kidney disease progression. I will check protein creatinine ratio along with albumin creatinine ratio and renal ultrasound next visit. I will put the patient candesartan Advised the patient to stay away from NSAIDs Follow-up with the patient in 3 months Nov, Diabetic nephropathy associated with type 1 diabetes mellitus (ICD-10 - E10.21) Hemoglobin G2x-uana is below 7% to attenuate chronic kidney disease progression .patient is working with his PCP for this patient needs better control of diabetes. Patient has recent appointment with his PCP coming this week Nov, Primary hypertension (ICD-10 - I10) Patient is taking multiple blood pressure medications including clonidine, nifedipine, candesartan, and Lasix. Blood pressure is low here in the clinic. I am worried the patient may be septic since he had a fever 2 days ago. I advised the patient to go to [facility] emergency room Nov, Pure hypercholestero lemia (ICD-10 - E78.00) LDL goal in chronic kidney disease patient is less than 100 to reduce the risk of cardiovascular disease. Patient is working with his PCP/rock worker for this purpose on statin. appiris Other 10-22-2021 NoteMR#: [id number] I [facility] Pt. Name: Andry Pierre Admitted: 07/21/2021 Discharged: 07/27/2021 Date of : 1960 Physician: Jesus Russ MD DISCHARGE SUMMARY PRIMARY CARE PHYSICIAN: Dr. Al. CONSULTING PHYSICIAN: 1. General Surgery. 2. GI team. 3. Cardiology. FINAL DIAGNOSES: 1. Choledocholithiasis/cholelithiasis, status post ERCP/sphincterotomy and stone removal with laparoscopic cholecystectomy, cleared for discharge from General Surgery standpoint. 2. PE, DVT history. Last time, the patient had PE 2 years ago, on Coumadin with history of prothrombin gene mutation, off anticoagulation per GI recommendation. Recommendation to resume anticoagulation post ERCP for 5 days, which will be on July 29. The patient understands. The patient is advised to follow up with the Coumadin Clinic and PCP. 3. Insulin-dependent diabetes mellitus. 4. Essential hypertension. 5. Coronary artery disease history of PCI. 6. Chronic kidney disease stage 2. 7. Obstructive sleep apnea. 8. Chronic diastolic congestive heart failure, clinically compensated. HOSPITAL COURSE: This is a 60-year-old obese gentleman with past medical history of aforementioned comorbidities, transferred from outlying facility on account of abdominal pain, upper quadrant with concern for choledocholithiasis/cholelithiasis as per the imaging at outlying facility. The patient was referred here initially on presentation. The patient has coagulopathy with underlying Coumadin, so it was held and the patient was seen by GI in consultation and the patient was prepared for ERCP, which the patient had and tolerated well, underwent sphincterotomy with stone removal and post ERCP, General Surgery was consulted and plan was for laparoscopic cholecystectomy, which the patient had and tolerated very well. Prior to that, the patient also ordered by Cardiology team for perioperative risk assessment and the patient was deemed appropriate for surgical intervention. Overall, the patient is doing well. The patient's Coumadin was held and GI recommendations for start anticoagulation post ERCP 5 days, which will be July 29. The patient is advised to follow up with the PCP and Coumadin Clinic upon discharge for further adjustment for anticoagulation. The patient is denying any chest pain, shortness of breath, dizziness, or lightheadedness. PHYSICAL EXAMINATION: GENERAL: When examined today, hemodynamically stable. NECK: Supple. CARDIOVASCULAR: Regular rate and rhythm. ABDOMEN: Positive bowel sounds. EXTREMITIES: No pedal edema. LABORATORY DATA: Reviewed. MEDICATIONS: Per the computer reconciliation list. TIME SPENT: Time spent in coordination of care 35 minutes. Electronically Signed by: Jesus Russ MD 07/27/2021 03:23 P Jesus Russ MD Date Dict: 07/27/2021/09:28 A/Jesus Russ MD Date Trans: 07/27/2021 09:41 Sona/michaela [id number] cc: Luis Mccormick M.D. [address] [id number] Note Chief Complaint Consultation for lump on Back of the neck HPI Staff 60 year old male referred by Dr. Mccormick on consultation of excision of Lump on the neck. Was seen in 2017, surgical excision of sebaceous cyst completed 02/05/2017, pathology completed. Gradually increasing in size. C/o pain at the site and dizziness. Trouble lowering jaw towards the chest, which causes sharp pain. Taking warfarin. No bleeding, change in color, texture, or drainage. Taking Tramadol for pain PRN. History of Present Illness 60 yo male with multiple medical problems, including COPD, h/o DVT, on warfarin, h/o CVA, DMI, CAD,htn, referred for possible recurrent sebaceous cyst posterior neck; patient with pain in posterior neck, intermittent headaches and dizziness, no swelling or drainage in area of scar; no skin changes. sebaceous cyst with extensive fibrosis/scarring excised in 2017 Review of Systems PHQ Score Initial Depression Screen Score: 0 ROS - Provider Constitutional: no fever, no sweats, no weight loss. Eyes: no glasses, no blurred vision, no visual loss. ENMT: no dentures, no hoarseness, no swallowing difficulties, no hearing loss, no ear infection(s),no nose bleeds. Cardiovascular: normal blood pressure, no chest pain, regular heartbeat, no heart murmur. Respiratory: no shortness of breath, no cough, no asthma, no wheezing. Gastrointestinal: no nausea, no vomiting, no diarrhea, no constipation, no blood in stool, no change in bowel habits, no abdominal pain, no hepatitis. Genitourinary: no kidney stones, no urine infection, no dysuria. Musculoskeletal: no pain, no weakness. Skin: no changing moles, no rash, no skin lumps. Neurologic: no seizures, no epilepsy, no headache. Psychiatric: no emotional or psychiatric problem. Heme/Lymph: no bleeding problems, no anemia, no blood clots, no transfusions. Allergy/Immunologic: no swollen lymph nodes/glands, no IV drug abuse. Other: Additional ROS info: Except as noted in the above Review of Systems and in the History of Present Illness, all other systems have been reviewed and are negative or noncontributory. Physical Exam Vitals & Measurements T: 37.6 ?C (Tympanic) HR: 64(Peripheral) BP: 122/72 SpO2: 97% HT: 183.0 cm HT: 183.0 cm WT: 136.2 kg WT: 136.2 kg BMI: 40.67 HEENT: normal conjunctiva, sclera clear, no scleral icterus, EOM intact, PERRLA, oral mucosa moist without lesions. Neck: trachea midline, no mass, symmetric, no thyromegaly or nodules, no adenopathy Respiratory: lungs CTA, respirations non labored. Lymphatic: no cervical adenopathy, Musculoskeletal: normal gait, digits and nails without infection, nodes, cyanosis, clubbing. Skin: no rashes, no lesions, no ulcers, posterior neck scar well-healed, some subcutaneous thickening consistent with scar; no residual cyt, no skin changes, no drainage or open areas. Psychiatric/Neuro: oriented to time, place, person, judgement normal, affect appropriate for age, insight intact, no focal deficits. Tests: , review of old records completed, Assessment/Plan 1. Neck pain (M54.2: Cervicalgia) no evidence of recurrent cyst; palpable scar tissue due to location over joint; suspect pain and headaches/dizziness from other causes. Follow-up No qualifying data available Patient Education Exercising to Lose Weight Exercising to Lose Weight Problem List/Past Medical History Ongoing Acute CVA (cerebrovascular accident) Angina Anticoagulated Arthritis BMI 40.0-44.9, adult BPH with urinary obstruction Cellulitis of lower extremity Chronic deep vein thrombosis (DVT) of axillary vein of both upper extremities Chronic obstructive pulmonary disease CKD stage 1 Depressed Diabetes Diabetes mellitus type 1 Emphysema of lung Gout Gross hematuria Head injury Heart disease History of usp anticoagulant use History of stroke Hyperlipidemia Hypertension Liver cancer Neck pain Nocturia Parkinsons Retention of urine seizures Seizures Urge incontinence Urinary retention Urinary urgency Historical Arthritis Procedure/Surgical History Implantation of electronic stimulator in brain (10/06/2008), Appendectomy, Arthritis of left ankle,Arthroscopy of knee, Carpal tunnel release, Cataracts, Drainage of abscess, Excision biopsy of lesion of skin of head or neck, Gastrocnemius recession, Hernia, Hydrocelectomy, Nasal sinus procedure, T onsillectomy, Tracheostomy. Medications acetaminophen, 650 mg, As Directed atorvastatin 10 mg Tab, 10 mg= 1 tab(s), Oral, Daily candesartan 8 mg Tab, 8 mg= 1 tab(s), Oral, Daily cetirizine, 10 mg, Daily cloNIDine 0.2 mg Tab, 0.2 mg= 1 tab(s), Oral, BID Diclofenac 75mg Tab-DR, 75 mg, Oral, BID furosemide 40 mg Tab, 40 mg= 1 tab(s), Oral, BID Levemir FlexTouch 100 units/mL subcutaneous solution, 56 unit, SubCutaneous montelukast 10 mg Tab, 10 mg= 1 tab(s), Oral, Daily NIFEdipine (Eqv-Procardia XL) 90 mg oral tablet, extended release oxybutynin (more content not included)...[facility] Medical CenterComment on above:Result Comment: Electronically Signed By: NOE GEORGE, Andry Daniel\Date and Time Signed: 03/22/21 10:59 EDTEvaluation note* Diagnosis Pre-op evaluation- Primary Preoperative examination, unspecified Essential tremor Essential and other specified forms of tremor Type 2 diabetes mellitus with other specified complication, with long-term current use of insulin ([facility]) Obesity, Class III, BMI >= 40 Morbid obesity Essential hypertension Unspecified essential hypertension Difficult intravenous access Other specified conditions influencing health status Acute, but ill-defined, cerebrovascular disease Obstructive sleep apnea syndrome Obstructive sleep apnea (adult) (pediatric) Chronic obstructive pulmonary disease, unspecified COPD type ([facility]) Tobacco use Tobacco use disorder Tracheal stenosis Other diseases of trachea and bronchus Gastroesophageal reflux disease, unspecified whether esophagitis present Pulmonary embolus with infarction ([facility]) Other pulmonary embolism and infarction Congestive heart failure, unspecified HF chronicity, unspecified heart failure type ([facility]) Stage 3 chronic kidney disease, unspecified whether stage 3a or 3b CKD ([facility]) Essential tremor Essential and other specified forms of tremor Essential tremor Essential and other specified forms of tremor documented in this encounter [facility] note* Diagnosis 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 Essential tremor Essential and other specified forms of tremor documented in this encounter [facility] note* Diagnosis Essential tremor- Primary Essential and other specified forms of tremor Essential tremor Essential and other specified forms of tremor documented in this encounter [facility] noteNo Information[facility] Referly Other History general Narrative - Reported* Type Description Date Medical History varicose veins Medical History CHRONIC KIDNEY DISEASE STAGE 3 Medical History EDEMA OF LOWER EXTREMITY Medical History DEEP VEIN THROMBOSIS Medical History TYPE 2 DIABETES MELLITUS WITHOUT COMPLICATION Medical History DIASTOLIC DYSFUNCTION Medical History OBESITY Medical History HYPERTENSION Medical History OBSTRUCTIVE SLEEP APNEA SYNDROME Surgical History SINUS SURGERY Surgical History SLEEP APNEA SURGERY Surgical History BRAIN SURGERY PLACEMENT OF DBS Surgical History HERNIA REPAIR Surgical History CHOLECYSTECTOMY 07/2021 Surgical History COMBINES RIGHT AND LEFT HEART C ATHETERIZATION 08/2020 Surgical History GALLSTONE STUCK IN SMALL INTEST INE 07/2021 Hospitalization History SEE ABOVE Hospitalization History CELLULITUS Hospitalization History HEART FAILURE [place] [facility] Other Summary Purpose Family History No Family History Records FoundNo Family History Records FoundNo Family History Records FoundNo Family History Records FoundNo Family History Records FoundNo Family History Records FoundNo Family History Records Found Advance Directives No Advanced Directives Records FoundDocuments on File Type Date Recorded Patient Director Of Extension Work Expl anation Advance Directive(s) Advance Directive(s) 01/05/2020 5:50 AM Advance Directive(s) 06/24/2019 10:59 AM Advance Directive(s) 06/24/2019 2:04 PM Advance Directive(s) 06/24/2019 2:00 PM Advance Directive(s) 06/18/2019 12:37 PM Advance Directive(s) 07/18/2016 2:43 PM Documents on File Type Date Recorded Patient Director Of Extension Work Expl anation Advance Directive(s) 06/24/2019 2:00 PM Additional Source Comments (unrecognized sect ion and content) No Status Records FoundNo Status Records FoundNo Status Records FoundNo Status Records FoundNo Status Records FoundNo Status Records FoundNo Status Records Found INFORMATION SOURCE (unrecogn ized section and content) DATE CREATED AUTHOR 06/01/2021 [facility] DATE CREATED AUTHOR AUTHOR'S ORGANIZ ATION 10/30/2021 [facility] DATE CREATED AUTHOR AUTHOR'S ORGANIZ ATION 05/31/2022 [facility] DATE CREATED AUTHOR AUTHOR'S ORGANIZ ATION 03/14/2023 [facility] DATE CREATED AUTHOR AUTHOR'S ORGANIZ ATION 08/14/2023 [facility] DATE CREATED AUTHOR AUTHOR'S ORGANIZ ATION 08/28/2023 [facility] DATE CREATED AUTHOR AUTHOR'S ORGANIZ ATION 09/24/[address] [facility] Source Comments (unrecognize d section and content) In the event this informatio n is protected by the Federal Confidentiality of Alcohol and Drug Abuse Patient Records regulations: The Federal rules restrict any use of the information to criminally investigate or prosecute any alcohol or drug abuse patient.[facility] Hospital[facility] the event this information is protected by the Federal Confidentiality of Alcohol and Drug Abuse Patient Records regulations: The Federal rules restrict any use of the information to criminally investigate or prosecute any alcohol or drug abuse patient.[facility] HospitalIn the event this information is protected by the Federal Confidentiality of Alcohol and Drug Abuse Patient Records regulations: The Federal rules restrict any use of the information to criminally investigate or prosecute any alcohol or drug abuse patient.[facility] HospitalIn the event this information is protected by the Federal Confidentiality of Alcohol and Drug Abuse Patient Records regulations: The Federal rules restrict any use of the information to criminally investigate or prosecute any alcohol or drug abuse patient.[facility] HospitalIn the event this information is protected by the Federal Confidentiality of Alcohol and Drug Abuse Patient Records regulations: The Federal rules restrict any use of the information to criminally investigate or prosecute any alcohol or drug abuse patient.[facility] HospitalIn the event this information is protected by the Federal Confidentiality of Alcohol and Drug Abuse Patient Records regulations: The Federal rules restrict any use of the information to criminally investigate or prosecute any alcohol or drug abuse patient.[facility] HospitalIn the event this information is protected by the Federal Confidentiality of Alcohol and Drug Abuse Patient Records regulations: The Federal rules restrict any use of the information to criminally investigate or prosecute any alcohol or drug abuse patient.[facility] HospitalIn the event this information is protected by the Federal Confidentiality of Alcohol and Drug Abuse Patient Records regulations: The Federal rules restrict any use of the information to criminally investigate or prosecute any alcohol or drug abuse patient.[facility] Reason for Visit (unrecogniz ed section and content) Reason Comments DBS MARIA G message Reason Comments Pre-Op Visit Reason Comments Results Reason Comments DBS problem Care Teams (unrecognized sec tion and content) Corn Shucker Relationship Specialty Start Date End Date Luis Mccormick MD PCP - General Family Practice 07/15/16 Corn Shucker Relationship Specialty Start Date End Date Luis Mccormick MD [address] [facility] [place] [address] PCP - General Family Practice 07/15/16 Saúl Lunsford MD [address] [place] [phone] Cardiology 01/21/22 Corn Shucker Relationship Specialty Start Date End Date Luis Mccormick MD [address] [facility] [place] [address] PCP - General Family Practice 07/15/16 [facility] [address] [place] [phone] Cardiology 01/21/22 Corn Shucker Relationship Specialty Start Date End Date Luis Mccormick MD [address] [facility] [place] [address] PCP - General Family Practice 07/15/16 [facility] [address] [place] [phone] Cardiology 01/21/22 Corn Shucker Relationship Specialty Start Date End Date Luis Mccormick MD [address] [facility] [place] [address] PCP - General Family Practice 07/15/16 [facility] [address] [place] [address] Cardiology 01/21/22 Corn Shucker Relationship Specialty Start Date End Date Luis Mccormick MD PCP - General Family Medicine 07/15/16 Saúl Lunsford MD [address] [place] [phone] Cardiology 01/21/22 Corn Shucker Relationship Specialty Start Date End Date Luis Mccormick MD PCP - General Family Medicine 07/15/16 Saúl Lunsford MD [address] [place] [address] Cardiology 01/21/22 FOR RECORDS PERTAINING TO PATIENTS WHO ARE OR HAVE BEEN ENROLLED IN A CHEMICAL DEPENDENCY/SUBSTANCEABUSE PROGRAM, SOME INFORMATION MAY BE OMITTED. This clinical summary was aggregated from multiple sources. Caution should be exercised in using it in the provision of clinical care. This summary normalizes information from multiple sources, and as a consequence, information in this document may materially change the coding, format and clinical context of patient data. In addition, data may be omitted in some cases. CLINICAL DECISIONS SHOULD BE BASED ON THE PRIMARY CLINICAL RECORDS. [facility]. provides no warranty or guarantee of the accuracy or completeness of information in this document.
[2023-10-08 11:33] LABS: Basophils Absolute Auto 0.1 10^3/uL (0.0-0.1); Eosinophils Absolute Auto 0.4 10^3/uL (0.0-0.7); Eosinophils Percent Auto 5.2 % (0.9-7.0); Hematocrit 46.2 % (42.0-54.0); Hemoglobin 15.5 g/dL (14.0-18.0); Immature Granulocytes Abs Auto 0.03 10^3/uL (0.00-0.03); Immature Granulocytes Pct Auto 0.4 % (0.0-0.5); Lymphocytes Absolute Auto 2.2 10^3/uL (1.2-3.8); Lymphocytes Percent Auto 26.8 % (20.5-60.0); Mean Corpuscular HGB Conc 33.5 g/dL (29.9-35.2); Mean Corpuscular Volume 95.3 fL (80.0-94.0); Mean Platelet Volume 10.6 fL (9.5-13.5); Monocytes Absolute Auto 0.6 10^3/uL (0.3-0.8); Monocytes Percent Auto 6.9 % (1.7-12.0); Neutrophils Absolute Auto 4.8 10^3/uL (1.4-6.5); Neutrophils Percent Auto 59.7 % (43.0-75.0); Platelet Count 197 10^3/uL (150-450); Red Blood Count 4.85 10^6/uL (4.70-6.10); Red Cell Distribution Width 13.2 % (11.0-15.0); White Blood Count 8.1 10^3/uL (4.0-11.0)
[2023-10-08 11:58] LABS: Anion Gap 11.9; Calcium 9.1 mg/dL (8.5-10.1); Carbon Dioxide 24.3 mmol/L (21.0-32.0); Chloride 111 mmol/L (98-107); Estimated GFR (African America 39 (>=60); Estimated GFR (Non-African Ame 32 (>=60); Glucose 117 mg/dL (74-106); INR 1.19; Partial Thromboplastin Time 30.4 sec (22.3-36.2); Potassium 4.2 mmol/L (3.5-5.1); Prothrombin Time 12.5 sec (9.0-11.6); Sodium 143 mmol/L (136-145); Troponin I High Sensitivity 55.4 pg/mL (4.0-76.1)
[2023-10-08 12:07] LABS: Glucometer 71 mg/dL (74-106)
[2023-10-08 13:30] LABS: Ammonia 15 umol/L (11-32)
[2023-10-08 13:45] LABS: Magnesium 2.3 mg/dL (1.8-2.4); Thyroid Stimulating Hormone 0.778 uIU/mL (0.358-3.740)
[2023-10-08 13:47] LABS: Troponin I High Sensitivity 59.7 pg/mL (4.0-76.1)
--- OUTSIDE RECORDS SUMMARY | 2023-10-08 14:06 | XMS_ITS | CCD ---
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 Name Role Phone Luis Mccormcik MD Primary Care Provider [phone] Luis Mccormick MD Primary Care Provider [phone] Jonn GEORGE, Ahmed Unavailable Sanjay Dooley Unavailable JESUS RUSS Attending Unavailable JESUS RUSS Admitting Unavailable SELF, REFERRED Referring Unavailable LUIS MCCORMICK Primary Care Unavailable AMY REMY Surgeon Unavailable [place] Procedure Practitioner Unavailab le [place] Procedure Practitioner Unavailab DAVON Rivera Surgeon Unavailable [...] Care Provider Jonn GEORGE, Saúl med Unavailable [phone] Marlena GEORGE, Ramon Morales Attending Unavailable SURI [...] Drug Allergy 1 Itching, Other: See Comments [facility] (13 sources) diazePAM; Translations: [DIAZEPAM] Drug Allergy 8 Unknown [facility] (13 sources) gabapentin; Translations: [GABAPENTIN] Drug Allergy 9 Other: See Comments, Unknown [facility] (10 sources) hydrALAZINE; Translations: [HYDRALAZINE] Drug Allergy 3 Unknown [facility] (3 sources) Adrenergic Beta-Antagonist s Drug allergy Unknown [facility] Other (2 sources) Adrenergic Beta-Antagonist s Drug allergy (disorder) 6 [facility] (2 sources) diazePAM Drug Allergy 6 [facility] (1 source) gabapentin Drug Allergy 9 [facility] (1 source) gabapentin Drug Allergy 6 [facility] (2 sources) beta-Blocking agent Drug Allergy 1 Itching, Other: See Comments [facility] Medications Current Medications Medication Drug Class(es) [...] every 8 hours as needed for pain. [id number] 200 actuat albuterol 0.09 mg/actuat metered dose [...] on above: Take 1 capsule by mo [facility] four times daily. 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 It has not been cleared or approved by the US Food and Drug Administration. This test was performed in a CLIA certified laboratory and is intended for clinical purposes. Performed By: [facility] [address] [place] [address] Lead Burner Supervisor: Uriah Prasad MD, PhD CLIA Number: [id number] Performed By: #### A CEMOD #### [facility] CLIA [id number] [address] [place] [address] ACETYLCHOLINE REC BINDING AB on 09-19-2023 ACETYLCHOLINE BINDING, QUAL Negative Normal Negative [facility] Comment on above: Order Comment: Sherry hu Type: BLOOD SPECIMEN Ordering Facility: [facility] Address: [address] [place] [address] Result Comment: Anti -acetylcholine receptor binding antibody test is used as an aid in diagnosis of myasthenia gravis. A negative result cannot exclude myasthenia gravis. Clinical correlation is required. Performed By: #### A CHRAB #### [facility] CLIA [id number] [address] [place] [address] [place] Acetylcholine receptor binding Ab (S) [Moles/Vol] <0.02 Normal <0.21 [facility] Comment on above: Order Comment: Sherry hu Type: BLOOD SPECIMEN Ordering Facility: [facility] Address: [address] [place] [address] Performed By: #### A CHRAB #### [facility] CLIA [id number] [address] [place] [address] [place] ACETYLCHOLINE REC BLOCKING A Bon 09-19-2023 ACETYLCHOLINE BLOCKING, QUAL Negative Normal Negative [facility] Comment on above: Order Comment: Sherry hu Type: BLOOD SPECIMEN Ordering Facility: [facility] Address: [address] [place] [address] Result Comment: Anti -acetylcholine receptor blocking antibody test is used as an aid in diagnosis of myasthenia gravis. A negative result cannot exclude myasthenia gravis. Clinical correlation is required. Performed By: #### A CEBAB #### [facility] CLIA [id number] [address] [place] [address] STATES OF [facility] Acetylcholine receptor blocking Ab/Acetylcholine Ab.total (S) [Molar fraction] <13 Normal <21 [facility] Comment on above: Order Comment: Speci men Type: BLOOD SPECIMEN Ordering Facility: [facility] Address: [address] [place] [address] Performed By: #### A CEBAB #### [facility] [place] [id number] [address] [place] [address] OF [place] CNOVon 09-19-2023 CNOV Office Visit (NREUS2 ) ANDRY PIERRE ([id number]) 1960 M Date Time Provider Department 09/19/23 11:00 AM SHANE PARHAM NREUS2 During your visit today, we recorded the following information about you: Pulse Blood pressure 82/minute 133/69 Shane Parham PA-C 09/19/2023 4:39 PM Signed [facility] - FOLLOW UP EVALUATION Luis Mccormick MD [address] [facility] [id number] Dear Luis Mccormick MD: I had the [...] Row Office Visit from 09/19/2023 in [facility] PAT from 01/21/2022 in Pre Anesthesia [facility] [...] it Current Outpatient Medications Medication Sig Insulin [place], Disposable, (BD INSULIN PEN NEEDLE UF) 29 [...] 1 tab (more content not included)... Normal [facility] José Antonio 09-12-2023 [facility] Telephone (NREUS2) ANDRY PIERRE ([id number]) 1960 M Date Time Provider Department 09/12/23 [...] months, dizzy and can hardly walk - [phone]. Darlene Bhatia 09/16/2023 4:24 PM Signed Patient [...] with infarction (more content not included)... Normal [facility] Office Visiton 08-19-2023 Follow-up visit [id number] Joanie Pierre 1960 M Date Provider Department Center 08/19/2023 1596-SURI BANDA ANNITA White Family History Problem Relation Age of Onset Coronary artery disease Mother Coronary artery disease Father Family Status - Relation Status Age at Mother Father Level of Service:17417 [place] OFFICE/OUTPATIENT ESTABLISHED MOD MDM 30-39 MIN Normal [facility] 36on 07-23-2023 36 Called to schedule c [...] my call to schedule if he chooses. [facility] José Antonio 07-07-2023 CNPN Telephone (NREUS2) ANDRY PIERRE ([id number]) 1960 M Date Time Provider Department 07/07/23 [...] RN 07/10/2023 9:15 AM Addendum Spoke with sales representative publications from Dr. Kumar's office, they report they [...] Status:Closed by KERWIN BRITO on 07/10/23 Normal [facility] Office Visiton 05-21-2023 Follow-up visit [id number] Joanie Pierre 1960 M Date Provider Department Center 05/21/2023 Myke-SURI BANDA [facility] Family History Problem Relation Age of Onset Coronary artery disease Mother Coronary artery disease Father Family Status - Relation Status Age at Mother Father Level of Service:76967 [place] OFFICE/OUTPATIENT ESTABLISHED MOD MDM 30-39 MIN Reason for Visit and Comments: Follow-up [035024] Normal [facility] INSULINon 02-21-2023 Insulin 9.5 uIU/mL Normal 2.6-24.9 [facility] Comment on above: Performed By: #### I NSULIN #### [facility] [address] [place] [address] Dr. Miah Buck XR LSPINE 2_3 VIEWSon [...] ROCK AVELAR Date: 2023-02-21 06:19 Normal [facility] BNPon 02-20-2023 Natriuretic peptide B (Bld) [Mass/Vol] 52.0 pg/mL Normal <=900.0 [facility] Comment on above: Performed By: #### M G, CMP, BNP, TSH, CRP #### [facility] [address] [address] [address] Miah Buck CBC AUTO DIFFon 02-20-2023 BASO # 0.1 103/ul Normal 0.0-0.1 [facility] Comment on above: Performed By: #### A 1C #### [facility] [address] [place] [address] Dr. Miah Buck Basophils/100 WBC (Bld) 0.8 % Normal 0.2-2.0 [facility] Comment on above: Performed By: #### A 1C #### [facility] [address] [address] [address] Miah Buck EO # 0.3 103/ul Normal 0.0-0.7 [facility] Comment on above: Performed By: #### A 1C #### [facility] [address] [place] [address] Dr. Miah Buck Eosinophils/100 WBC (Bld) 3.5 % Normal 0.9-7.0 [facility] Comment on above: Performed By: #### A 1C #### [facility] [address] [place] [address] Dr. Miah Buck Erythrocyte distribution width (RBC) [Ratio] 12.7 % Normal 11.0-15.0 [facility] Comment on above: Performed By: #### A 1C #### [facility] [address] [place] [address] Dr. Miah Buck Hematocrit (Bld) [Volume fraction] 48.8 % Normal 42.0-54.0 [facility] Comment on above: Performed By: #### A 1C #### [facility] [address] [address] [address] Miah Buck Hemoglobin (Bld) [Mass/Vol] 16.8 g/dL Normal 14.0-18.0 [facility] Comment on above: Performed By: #### A 1C #### [facility] [address] [address] [address] Miah Buck IG # 0.04 10e3/ul Critically high 0.00-0.03 [facility] Comment on above: Performed By: #### A 1C #### [facility] [address] [address] [address] Miah Buck IG % 0.6 % Critically high 0.0-0.5 [facility] Comment on above: Performed By: #### A 1C #### [facility] [address] [place] [address] Dr. Miah Buck LYMPH # 1.9 103/ul Normal 1.2-3.8 [facility] Comment on above: Performed By: #### A 1C #### [facility] [address] [place] [address] Dr. Miah Buck Lymphocytes/100 WBC (Bld) 27.0 % Normal 20.5-60.0 [facility] Comment on above: Performed By: #### A 1C #### [facility] [address] [place] [address] Dr. Miah Buck MANUAL DIFF REQ NO Normal [facility] Comment on above: Performed By: #### A 1C #### [facility] [address] [address] [address] Miah Buck MCH (RBC) [Entitic mass] 31.5 pg Normal 25.9-34.0 [facility] Comment on above: Performed By: #### A 1C #### [facility] [address] [place] [address] Dr. Miah Buck MCHC (RBC) [Mass/Vol] 34.4 g/dL Normal 29.9-35.2 [facility] Comment on above: Performed By: #### A 1C #### [facility] [address] [address] [address] Miah Buck MCV (RBC) [Entitic vol] 91.4 fL Normal 80.0-94.0 [facility] Comment on above: Performed By: #### A 1C #### [facility] [address] [address] [address] Miah Buck MONO # 0.4 103/ul Normal 0.3-0.8 [facility] Comment on above: Performed By: #### A 1C #### [facility] [address] [address] [address] Miah Buck Monocytes/100 WBC (Bld) 5.5 % Normal 1.7-12.0 [facility] Comment on above: Performed By: #### A 1C #### [facility] [address] [place] [address] Dr. Miah Buck NEUT # 4.5 103/ul Normal 1.4-6.5 [facility] Comment on above: Performed By: #### A 1C #### [facility] [address] [place] [address] Dr. Miah Buck Neutrophils/100 WBC (Bld) 62.6 % Normal 43.0-75.0 [facility] Comment on above: Performed By: #### A 1C #### [facility] [address] [place] [address] Dr. Miah Buck Platelet mean volume (Bld) [Entitic vol] 10.6 fL Normal 9.5-13.5 [facility] Comment on above: Performed By: #### A 1C #### [facility] [address] [place] [address] Dr. Miah Buck PLT 204 103/ul Normal 150-450 [facility] Comment on above: Performed By: #### A 1C #### [facility] [address] [place] [address] Dr. Miah Buck RBC 5.34 106/ul Normal 4.70-6.10 [facility] Comment on above: Performed By: #### A 1C #### [facility] [address] [address] [address] Miah Buck WBC 7.2 103/ul Normal 4.0-11.0 [facility] Comment on above: Performed By: #### A 1C #### [facility] [address] [place] [address] Dr. Miah Buck DIRECT LDLon 02-20-2023 Cholesterol in LDL [Mass/Vol] 173 mg/dL Normal [facility] Comment on above: Performed By: #### A 1C #### [facility] [address] [address] [address] Miah Buck DLDL NORMAL SEE BELOW Normal [facility] Comment on above: Result Comment: <100 mg/dl OPTIMAL 100 - 129 mg/dl NEAR OR ABOVE OPTIMAL 130 - 159 mg/dl BORDERLINE HIGH 160 - 189 mg/dl HIGH >190 mg/dl VERY HIGH Performed By: #### A 1C #### [facility] [address] [place] [address] Dr. Miah Buck FREE T3on 02-20-2023 FREE T3 1.75 pg/mlL Critically low 2.18-3.98 [facility] Comment on above: Performed By: #### A 1C #### [facility] [address] [place] [address] Dr. Miah Buck GLYCOHEMOGLOBIN A1Con 2022 ADA RECOMMENDATION SEE BELOW Normal [facility] Comment on above: Result Comment: ADA RECOMMENDED LIMIT 4.0 - 6.0 ADA THERAPEUTIC TARGET < 7.0 ACTION SUGGESTED > 7.0 Performed By: #### A 1C #### [facility] [address] [place] [address] Dr. Miah Buck Glucose [Mass/Vol] 298 mg/dL Normal [facility] Comment on above: Performed By: #### A 1C #### [facility] [address] [place] [address] Dr. Miah Buck HbA1c (Bld) [Mass fraction] 12.0 % Critically high 4.5-6.2 [facility] Comment on above: Performed By: #### A 1C #### [facility] [address] [place] [address] Dr. Miah Buck LIPID PROFILEon 02-20-2023 CHOL-HDL RATIO NORM SEE BELOW Normal [facility] Comment on above: Result Comment: 3.3 - 4.4 LOW RISK 4.4 - 7.1 AVERAGE RISK 7.1 - 11.0 MODERATE RISK >11.0 HIGH RISK Performed By: #### A 1C #### [facility] [address] [address] [address] Miah Buck Cholesterol [Mass/Vol] 303 mg/dL Critically high <=200 [facility] Comment on above: Performed By: #### A 1C #### [facility] [address] [address] [address] Miah Buck Cholesterol in HDL [Mass/Vol] 33 mg/dL Critically low 40-60 [facility] Comment on above: Performed By: #### A 1C #### [facility] [address] [address] [address] Miah Buck Cholesterol.total/ Cholesterol in HDL [Mass ratio] 9.2 {ratio} Normal [facility] Comment on above: Performed By: #### A 1C #### [facility] [address] [address] [address] Miah Buck HDL NORMAL > or = 60 mg/dl - LO W CARDIOVASCULAR RISK <40 mg/dl - HIGH CARDIOVASCULAR RISK Normal [facility] Comment on above: Performed By: #### A 1C #### [facility] [address] [address] [address] Miah Buck Triglyceride [Mass/Vol] 454 mg/dL Critically high <=150 [facility] Comment on above: Performed By: #### A 1C #### [facility] [address] [address] [address] Miah Buck VLDL CALC 90.8 mg/dL Normal [facility] Comment on above: Performed By: #### A 1C #### [facility] [address] [address] [address] Miah Buck Office Visiton 02-20-2023 Follow-up visit [id number] Joanie Pierre 1960 Date Provider Department Center 02/20/2023 SURI FERREIRA [facility] Family History Problem Relation Age of Onset Coronary artery disease Mother Coronary artery disease Father Family Status - Relation Status Age at Mother Father Level of Service:82194 [place] OFFICE/OUTPATIENT ESTABLISHED MOD MDM 30-39 MIN Normal [facility] PROF 14(COMP METB)on 023 Albumin [Mass/Vol] 3.5 g/dL Normal 3.4-5.0 [facility] Comment on above: Performed By: #### A 1C #### [facility] [address] [place] [address] Dr. Miah Buck Albumin/Globulin [Mass ratio] 0.7 {ratio} Normal [facility] Comment on above: Performed By: #### A 1C #### [facility] [address] [place] [address] Dr. Miah Buck ALP [Catalytic activity/Vol] 146 U/L Critically high 46-116 [facility] Comment on above: Performed By: #### A 1C #### [facility] [address] [place] [address] Dr. Miah Buck ALT [Catalytic activity/Vol] 40 U/L Normal 16-63 [facility] Comment on above: Performed By: #### A 1C #### [facility] [address] [place] [address] Dr. Miah Buck Anion gap [Moles/Vol] 13.8 mmol/L Normal [facility] Comment on above: Performed By: #### A 1C #### [facility] [address] [place] [address] Dr. Miah Buck AST [Catalytic activity/Vol] 19 U/L Normal 15-37 [facility] Comment on above: Performed By: #### A 1C #### [facility] [address] [place] [address] Dr. Miah Buck Bilirubin [Mass/Vol] 0.4 mg/dL Normal 0.2-1.0 [facility] Comment on above: Performed By: #### A 1C #### [facility] [address] [place] [address] Dr. Miah Buck Calcium [Mass/Vol] 9.1 mg/dL Normal 8.5-10.1 [facility] Comment on above: Performed By: #### A 1C #### [facility] [address] [place] [address] Dr. Miah Buck Chloride [Moles/Vol] 99 mmol/L Normal 98-107 [facility] Comment on above: Performed By: #### A 1C #### [facility] [address] [place] [address] Dr. Miah Buck CO2 [Moles/Vol] 27.6 mmol/L Normal 21.0-32.0 [facility] Comment on above: Performed By: #### A 1C #### [facility] [address] [place] [address] Dr. Miah Buck Creatinine [Mass/Vol] 1.88 mg/dL Critically high 0.70-1.30 [facility] Comment on above: Performed By: #### A 1C #### [facility] [address] [place] [address] Dr. Miah Buck EGFR-AF ALGERIAN 44 mL/min/1.73m2 Critically low >=60 [facility] Comment on above: Performed By: #### A 1C #### [facility] [address] [place] [address] Dr. Miah Buck EGFR-NON AF ALGERIAN 37 mL/min/1.73m2 Critically low >=60 [facility] Comment on above: Performed By: #### A 1C #### [facility] [address] [place] [address] Dr. Miah Buck Globulin (S) [Mass/Vol] 4.7 g/dL Normal [facility] Comment on above: Performed By: #### A 1C #### [facility] [address] [place] [address] Dr. Miah Buck Glucose [Mass/Vol] 524 mg/dL Critically high 74-106 [facility] Comment on above: Performed By: #### A 1C #### [facility] [address] [place] [address] Dr. Miah Buck Potassium [Moles/Vol] 4.4 mmol/L Normal 3.5-5.1 [facility] Comment on above: Performed By: #### A 1C #### [facility] [address] [place] [address] Dr. Miah Buck Protein [Mass/Vol] 8.2 g/dL Normal 6.4-8.2 [facility] Comment on above: Performed By: #### A 1C #### [facility] [address] [place] [address] Dr. Miah Buck Sodium [Moles/Vol] 136 mmol/L Normal 136-145 [facility] Comment on above: Performed By: #### A 1C #### [facility] [address] [place] [address] Dr. Miah Buck Urea nitrogen [Mass/Vol] 21.0 mg/dL Critically high 7.0-18.0 [facility] Comment on above: Performed By: #### A 1C #### [facility] [address] [place] [address] Dr. Miah Buck Urea nitrogen/Creatinin e [Mass ratio] 11.2 mg/mg Normal [facility] Comment on above: Performed By: #### A 1C #### [facility] [address] [place] [address] Dr. Miah Buck T4on 02-20-2023 T4 [Mass/Vol] 7.80 ug/dL Normal 4.50-12.10 [facility] Comment on above: Performed By: #### A 1C #### [facility] [address] [place] [address] Dr. Miah Buck TSHon 02-20-2023 TSH 0.740 uIU/mL Normal 0.358-3.740 [facility] Comment on above: Performed By: #### A 1C #### [facility] [address] [place] [address] Dr. Miah Buck URIC ACID SERUMon 02-20-2023 Urate [Mass/Vol] 8.2 mg/dL Critically high 3.5-7.2 [facility] Comment on above: Performed By: #### A 1C #### [facility] [address] [address] [address] Miah Buck Office Visiton 01-17-2023 Follow-up visit [id number] Joanie Pierre 1960 [facility] Provider Department Center 01/17/2023 Alessandro-SOFYA SMART [facility] Family History Problem Relation Age of Onset Coronary artery disease Mother Coronary artery disease Father Family Status - Relation Status Age at Mother Father Level of Service:94156 [place] OFFICE/OUTPATIENT ESTABLISHED LOW [facility] 20-29 MIN Reason for Visit and Comments: Wound Check [[id number]] Normal [facility] HPon 01-09-2023 HP -------- Attestation signed by [...] there are no changes to the H&P. [facility] Orders Onlyon 01-09-2023 Orders Only [id number] Joanie Pierre 1960 [facility] Provider Department Center 01/09/2023 TALI REA [facility] Family History Problem Relation Age of Onset Coronary artery disease Mother Coronary artery disease Father Family Status - Relation Status Age at Mother Father Normal [facility] CREATININEon 01-07-2023 Creatinine [Mass/Vol] 2.09 mg/dL Critically high 0.70-1.30 [facility] Comment on above: Performed By: #### M G, CMP, BNP, TSH, CRP #### [facility] [address] [address] [address] Miah Buck EGFR-AF ALGERIAN 39 mL/min/1.73m2 Critically low >=60 [facility] Comment on above: Performed By: #### M G, CMP, BNP, TSH, CRP #### [facility] [address] [address] [address] Miah Buck EGFR-NON AF ALGERIAN 32 mL/min/1.73m2 Critically low >=60 [facility] Comment on above: Performed By: #### M G, CMP, BNP, TSH, CRP #### [facility] [address] [address] ABD/PELV W CONon [...] ROCK AVELAR Date: 2023-01-07 10:18 Normal [facility] Office Visiton 01-06-2023 Follow-up visit [id number] Joanie Pierre 1960 M Date Provider Department Center 01/06/2023 Myke-SURI BANDA [facility] Family History Problem Relation Age of Onset Coronary artery disease Mother Coronary artery disease Father Family Status - Relation Status Age at Mother Father Level of Service:94253 [place] OFFICE/OUTPATIENT ESTABLISHED MOD MDM 30-39 MIN Normal [facility] Covid-19 PCR (CVDTB)on SARS-CoV-2 (COVID-19) RNA EMMY+probe Ql (Unsp spec) Not detected Normal NOT DETECTED [facility] Comment on above: Result Comment: This test is not yet approved or cleared by the [place] FDA. When there are no FDA-approved or cleared tests available, and other criteria are met, FDA can make tests available under an emergency access mechanism called an Emergency Use Authorization (EUA). The EUA for this test is supported by the [place] of Health and Human Service's (HHS's) declaration [...] M G, CMP, BNP, TSH, CRP #### [facility] [address] [address] HEAD WO CONon [...] by: LOS BAIRES Date: 2022-05-29 09:41 Normal [facility] CT NECK ST WO CONon 05-29-20 CT [...] ALISA HOLMAN Date: 2022-05-29 10:26 Normal [facility] [place] VIT D 25-OH LABCORPon 2021 Vitamin D, 25-Hydroxy 27.6 ng/mL Critically low 30.0-100.0 [facility] [place] Comment on above: Result Comment: Rima min D deficiency has been defined by the [place] [employer] and an Endocrine Society practice guideline as a level of serum 25-OH vitamin D less than 20 ng/mL (1,2). The Endocrine Society went on to further define vitamin D insufficiency as a level between 21 and 29 ng/mL (2). 1. IOM ([place] [employer]). 2010. Dietary reference intakes for calcium and D. [place]: The National Academies Press. 2. Su MF, Agapito HOSKINS, Mason KAUFMAN, et al. Evaluation, treatment, and prevention of vitamin D deficiency: an Endocrine Society clinical practice guideline. JCEM. 2010; 96(7):1911-30. Performed By: #### V ITADLC #### [facility] [place] [facility] [address] [address] [address] Miah Buck XR CHEST 2 Von [...] ROCK AVELAR Date: 2022-05-24 07:37 Normal [facility] [place] BNPon 05-23-2022 Natriuretic peptide B (Bld) [Mass/Vol] 53.0 pg/mL Normal <=900.0 [facility] [place] Comment on above: Performed By: #### M G, CMP, BNP, TSH, CRP #### [facility] [place] [facility] [address] [address] [address] Miah Buck CBC AUTO DIFFon 05-23-2022 BASO # 0.1 103/ul Normal 0.0-0.1 [facility] [place] Comment on above: Performed By: #### A 1C #### [facility] [place] [facility] [address] [place] [address] Dr. Miah Buck Basophils/100 WBC (Bld) 0.7 % Normal 0.2-2.0 [facility] Comment on above: Performed By: #### A 1C #### [facility] [place] [facility] [address] [place] [address] Dr. Miah Buck EO # 0.3 103/ul Normal 0.0-0.7 [facility] [place] Comment on above: Performed By: #### A 1C #### [facility] [place] [facility] [address] [place] [address] Dr. Miah Buck Eosinophils/100 WBC (Bld) 4.0 % Normal 0.9-7.0 [facility] Comment on above: Performed By: #### A 1C #### [facility] [place] [facility] [address] [place] [address] Dr. Miah Buck Erythrocyte distribution width (RBC) [Ratio] 13.4 % Normal 11.0-15.0 [facility] Comment on above: Performed By: #### A 1C #### [facility] [place] [facility] [address] [place] [address] Dr. Miah Buck Hematocrit (Bld) [Volume fraction] 46.1 % Normal 42.0-54.0 [facility] Comment on above: Performed By: #### A 1C #### [facility] [place] [facility] [address] [place] [address] Dr. Miah Buck Hemoglobin (Bld) [Mass/Vol] 15.5 g/dL Normal 14.0-18.0 [facility] Comment on above: Performed By: #### A 1C #### [facility] [place] [facility] [address] [place] [address] Dr. Miah Buck IG # 0.03 10e3/ul Normal 0.00-0.03 [facility] Comment on above: Performed By: #### A 1C #### [facility] [place] [facility] [address] [place] [address] Dr. Miah Buck IG % 0.4 % Normal 0.0-0.5 [facility] [place] Comment on above: Performed By: #### A 1C #### [facility] [place] [facility] [address] [address] [address] Miah Buck LYMPH # 2.0 103/ul Normal 1.2-3.8 [facility] [place] Comment on above: Performed By: #### A 1C #### [facility] [place] [facility] [address] [address] [address] Miah Buck Lymphocytes/100 WBC (Bld) 28.1 % Normal 20.5-60.0 [facility] Comment on above: Performed By: #### A 1C #### [facility] [place] [facility] [address] [place] [address] Dr. Miah Buck MANUAL DIFF REQ NO Normal [facility] Comment on above: Performed By: #### A 1C #### [facility] [place] [facility] [address] [place] [address] Dr. Miah Buck MCH (RBC) [Entitic mass] 31.8 pg Normal 25.9-34.0 [facility] Comment on above: Performed By: #### A 1C #### [facility] [place] [facility] [address] [place] [address] Dr. Miah Buck MCHC (RBC) [Mass/Vol] 33.6 g/dL Normal 29.9-35.2 [facility] [place] Comment on above: Performed By: #### A 1C #### [facility] [place] [facility] [address] [place] [address] Dr. Miah Buck MCV (RBC) [Entitic vol] 94.7 fL Critically high 80.0-94.0 [facility] Comment on above: Performed By: #### A 1C #### [facility] [place] [facility] [address] [place] [address] Dr. Miah Buck MONO # 0.5 103/ul Normal 0.3-0.8 [facility] [place] Comment on above: Performed By: #### A 1C #### [facility] [place] [facility] [address] [place] [address] Dr. Miah Buck Monocytes/100 WBC (Bld) 7.1 % Normal 1.7-12.0 [facility] [place] Comment on above: Performed By: #### A 1C #### [facility] [place] [facility] [address] [place] [address] Dr. Miah Buck NEUT # 4.3 103/ul Normal 1.4-6.5 [facility] [place] Comment on above: Performed By: #### A 1C #### [facility] [place] [facility] [address] [place] [address] Dr. Miah Buck Neutrophils/100 WBC (Bld) 59.7 % Normal 43.0-75.0 [facility] [place] Comment on above: Performed By: #### A 1C #### [facility] [place] [facility] [address] [place] [address] Dr. Miah Buck Platelet mean volume (Bld) [Entitic vol] 10.6 fL Normal 9.5-13.5 [facility] [place] Comment on above: Performed By: #### A 1C #### [facility] [place] [facility] [address] [place] [address] Dr. Miah Buck PLT 209 103/ul Normal 150-450 [facility] [place] Comment on above: Performed By: #### A 1C #### [facility] [place] [facility] [address] [place] [address] Dr. Miah Buck RBC 4.87 106/ul Normal 4.70-6.10 [facility] [place] Comment on above: Performed By: #### A 1C #### [facility] [place] [facility] [address] [place] [address] Dr. Miah Buck WBC 7.2 103/ul Normal 4.0-11.0 [facility] [place] Comment on above: Performed By: #### A 1C #### [facility] [place] [facility] [address] [place] [address] Dr. Miah Buck CRPon 05-23-2022 CRP 1.0 mg/dL Normal <=1.0 [facility] [place] Comment on above: Performed By: #### M G, CMP, BNP, TSH, CRP #### [facility] [place] [facility] [address] [place] [address] Dr. Miah Buck ECHOCARDIO M/2D COMPLETEon 0 05-23-2022 ECHOCARDIO M/2D COMPLETE Patient: ANDRY PIERRE Exam Date: 05/23/2022 : 1960 Gender:M Ordering : SOFYA SMART [facility] Admission #: [id number] Family : DR LUIS MCCORMICK . Order #: [id number] CLICK HERE TO VIEW EXAM ECHOCARDIOGRAM REPORT [...] M.D. on 05/23/2022 at 18:40 Normal [facility] MAGNESIUMon 05-23-2022 Magnesium [Mass/Vol] 2.3 mg/dL Normal 1.8-2.4 [facility] [place] Comment on above: Performed By: #### M G, CMP, BNP, TSH, CRP #### [facility] [place] [facility] [address] [place] [address] Dr. Miah Buck PROF 14(COMP METB)on 022 Albumin [Mass/Vol] 3.6 g/dL Normal 3.4-5.0 [facility] Comment on above: Performed By: #### M G, CMP, BNP, TSH, CRP #### [facility] [place] [facility] [address] [place] [address] Dr. Miah Buck Albumin/Globulin [Mass ratio] 0.9 {ratio} Normal [facility] Comment on above: Performed By: #### M G, CMP, BNP, TSH, CRP #### [facility] [place] [facility] [address] [place] [address] Dr. Miah Buck ALP [Catalytic activity/Vol] 113 U/L Normal 46-116 [facility] Comment on above: Performed By: #### M G, CMP, BNP, TSH, CRP #### [facility] [place] [facility] [address] [place] [address] Dr. Miah Buck ALT [Catalytic activity/Vol] 34 U/L Normal 16-63 [facility] Comment on above: Performed By: #### M G, CMP, BNP, TSH, CRP #### [facility] [place] [facility] [address] [place] [address] Dr. Miah Buck Anion gap [Moles/Vol] 10.7 mmol/L Normal [facility] Comment on above: Performed By: #### M G, CMP, BNP, TSH, CRP #### [facility] [place] [facility] [address] [place] [address] Dr. Miah Buck AST [Catalytic activity/Vol] 23 U/L Normal 15-37 [facility] Comment on above: Performed By: #### M G, CMP, BNP, TSH, CRP #### [facility] [place] [facility] [address] [place] [address] Dr. Miah Buck Bilirubin [Mass/Vol] 0.3 mg/dL Normal 0.2-1.0 [facility] Comment on above: Performed By: #### M G, CMP, BNP, TSH, CRP #### [facility] [place] [facility] [address] [place] [address] Dr. Miah Buck Calcium [Mass/Vol] 8.9 mg/dL Normal 8.5-10.1 [facility] Comment on above: Performed By: #### M G, CMP, BNP, TSH, CRP #### [facility] [place] [facility] [address] [address] [address] Miah Buck Chloride [Moles/Vol] 105 mmol/L Normal 98-107 [facility] [place] Comment on above: Performed By: #### M G, CMP, BNP, TSH, CRP #### [facility] [place] [facility] [address] [address] [address] Miah Buck CO2 [Moles/Vol] 26.5 mmol/L Normal 21.0-32.0 [facility] Comment on above: Performed By: #### M G, CMP, BNP, TSH, CRP #### [facility] [place] [facility] [address] [place] [address] Dr. Miah Buck Creatinine [Mass/Vol] 1.73 mg/dL Critically high 0.70-1.30 [facility] Comment on above: Performed By: #### M G, CMP, BNP, TSH, CRP #### [facility] [place] [facility] [address] [address] [address] Miah Buck EGFR-AF ALGERIAN 49 mL/min/1.73m2 Critically low >=60 [facility] Comment on above: Performed By: #### M G, CMP, BNP, TSH, CRP #### [facility] [place] [facility] [address] [address] [address] Miah Buck EGFR-NON AF ALGERIAN 40 mL/min/1.73m2 Critically low >=60 [facility] Comment on above: Performed By: #### M G, CMP, BNP, TSH, CRP #### [facility] [place] [facility] [address] [address] [address] Miah Buck Globulin (S) [Mass/Vol] 4.0 g/dL Normal [facility] Comment on above: Performed By: #### M G, CMP, BNP, TSH, CRP #### [facility] [address] [address] [address] Miah Buck Glucose [Mass/Vol] 285 mg/dL Critically high 74-106 [facility] Comment on above: Performed By: #### M G, CMP, BNP, TSH, CRP #### [facility] [place] [facility] [address] [address] [address] Miah Buck Potassium [Moles/Vol] 4.2 mmol/L Normal 3.5-5.1 [facility] Comment on above: Performed By: #### M G, CMP, BNP, TSH, CRP #### [facility] [address] [address] [address] Miah Buck Protein [Mass/Vol] 7.6 g/dL Normal 6.4-8.2 [facility] Comment on above: Performed By: #### M G, CMP, BNP, TSH, CRP #### [facility] [address] [place] [address] Dr. Miah Buck Sodium [Moles/Vol] 138 mmol/L Normal 136-145 [facility] Comment on above: Performed By: #### M G, CMP, BNP, TSH, CRP #### [facility] [address] [address] [address] Miah Buck Urea nitrogen [Mass/Vol] 23.0 mg/dL Critically high 7.0-18.0 [facility] Comment on above: Performed By: #### M G, CMP, BNP, TSH, CRP #### [facility] [address] [place] [address] Dr. Miah Buck Urea nitrogen/Creatinin e [Mass ratio] 13.3 mg/mg Normal [facility] Comment on above: Performed By: #### M G, CMP, BNP, TSH, CRP #### [facility] [address] [address] [address] Miah Buck TSHon 05-23-2022 TSH 0.714 uIU/mL Normal 0.358-3.740 [facility] Comment on above: Performed By: #### M G, CMP, BNP, TSH, CRP #### [facility] [address] [address] [address] Miah Buck VITAMIN B12on 05-23-2022 Cobalamin (Vitamin B12) [Mass/Vol] 930.0 pg/mL Normal 193.0-986.0 [facility] Comment on above: Performed By: #### V ITB12 #### [facility] [address] [address] [address] Miah Buck BASIC METABOLIC PANELon 10-2 Calcium [Mass/Vol] 8.3 mg/dL Low 8.6-10.3 [facility] Comment on above: Order Comment: No: D o not add to previous draw Performed By: #### 1 0070, 95960, 55558, 06076 #### [facility] [address] [place] [address], [facility] Chloride [Moles/Vol] 105 mmol/L Normal 98-107 [facility] Comment on above: Order Comment: No: D o not add to previous draw Performed By: #### 1 0070, 07853, 29829, 79710 #### [facility] [address] [place] [address], [place] CO2 [Moles/Vol] 22 mmol/L Normal 21-31 [facility] Comment on above: Order Comment: No: D o not add to previous draw Performed By: #### 1 0070, 04099, 49804, 95644 #### [facility] [address] [place] [address], [place] Creatinine [Mass/Vol] 1.31 mg/dL High 0.70-1.30 [facility] Comment on above: Order Comment: No: D o not add to previous draw Performed By: #### 1 0070, 86837, 35942, 71158 #### [facility] [address] [place] [address], [place] eGFR- non- 56 ml/min/1.73sq m Abnormal >60 [facility] Comment on above: Order Comment: No: D o not add to previous draw Performed By: #### 1 0070, 79506, 66507, 85861 #### [facility] [address] [place] [address], [facility] GFR/1.73 sq M.predicted among blacks MDRD (S/P/Bld) [Vol rate/Area] mL/min/{1.73_m2} Normal >60 [facility] Comment on above: Order Comment: No: D o not add to previous draw Performed By: #### 1 0070, 41334, 78900, 59189 #### [facility] [address] [place] [address], [facility] Glucose [Mass/Vol] 231 mg/dL High 70-100 [facility] Comment on above: Order Comment: No: D o not add to previous draw Performed By: #### 1 0070, 35449, 91983, 48081 #### [facility] [address] [place] [address], [facility] Potassium [Moles/Vol] 3.6 mmol/L Normal 3.5-5.1 [facility] Comment on above: Order Comment: No: D o not add to previous draw Performed By: #### 1 0070, 55176, 75048, 93233 #### [facility] [address] [facility] [place] [address], [facility] Sodium [Moles/Vol] 139 mmol/L Normal 136-145 [facility] Comment on above: Order Comment: No: D o not add to previous draw Performed By: #### 1 0070, 37614, 86814, 33876 #### [facility] [address] [place] [address], [facility] Urea nitrogen [Mass/Vol] 17 mg/dL Normal 7-25 [facility] Comment on above: Order Comment: No: D o not add to previous draw Performed By: #### 1 0070, 10712, 32541, 45180 #### [facility] [address] [place] [address], [place] CBC W/DIFFon 07-27-2021 ABS IMM GRANS 0.1 10*3/uL Normal 0.0-0.2 [facility] Comment on above: Performed By: #### 1 0070, 90013, 54035, 13243 #### [facility] [address] [place] [address], [facility] ABS NEUTROPHILS 10.2 10*3/uL High 1.6-7.6 [facility] Comment on above: Performed By: #### 1 0070, 68862, 13795, 90140 #### [facility] [address] [place] [address], [facility] Basophils (Bld) [#/Vol] 0.0 10*3/uL Normal 0.0-0.2 [facility] Comment on above: Performed By: #### 1 0, 68682, 67211, 63188 #### [facility] [address] [facility] [place] [address], [facility] Basophils/100 WBC (Bld) 0.3 % Normal 0.0-1.0 [facility] Comment on above: Performed By: #### 1 0, 01275, 43579, 83974 #### [facility] [address] [place] [address], [facility] Eosinophils (Bld) [#/Vol] 0.0 10*3/uL Normal 0.0-0.5 [facility] Comment on above: Performed By: #### 1 0, 39929, 74259, 90306 #### [facility] [address] [place] [address], [facility] Eosinophils/100 WBC (Bld) 0.0 % Normal 0.0-6.0 [facility] Comment on above: Performed By: #### 1 0070, 19657, 76181, 08039 #### [facility] [address] [facility] [place] [address], [facility] Erythrocyte distribution width (RBC) [Ratio] 13.2 % Normal 11.5-15.0 [facility] Comment on above: Performed By: #### 1 0070, 20637, 34796, 45442 #### [facility] [address] [facility] [address] Hematocrit (Bld) [Volume fraction] 44.2 % Normal 39.0-50.0 [facility] Comment on above: Performed By: #### 1 0070, 40737, 18146, 13472 #### [facility] [address] [facility] [address] Hemoglobin (Bld) [Mass/Vol] 14.9 g/dL Normal 13.0-17.0 [facility] Comment on above: Performed By: #### 1 0, 25125, 28703, 23538 #### [facility] [address] [facility]. [address] IMMATURE GRANS 0.7 % Normal 0.0-1.0 [facility] Comment on above: Performed By: #### 1 0070, 04759, 30135, 95926 #### [facility] [address] [facility]. [address] Lymphocytes (Bld) [#/Vol] 1.0 10*3/uL Low 1.2-4.0 [facility] Comment on above: Performed By: #### 1 0, 83217, 59264, 78448 #### [facility] [address] [facility]. [address] Lymphocytes/100 WBC (Bld) 8.2 % Low 20.0-45.0 [facility] Comment on above: Performed By: #### 1 0070, 55904, 58573, 91467 #### [facility] [address] MCH (RBC) [Entitic mass] 31.2 pg Normal 27.0-33.0 [facility] Comment on above: Performed By: #### 1 0070, 11930, 01205, 99060 #### [facility] [address] [facility] [place] [address], [facility] MCHC (RBC) [Mass/Vol] 33.7 g/dL Normal 32.0-35.0 [facility] Comment on above: Performed By: #### 1 0070, 02500, 71215, 03211 #### [facility] [address] [place] [address], [facility] MCV (RBC) [Entitic vol] 92.7 fL Normal 82.0-98.0 [facility] Comment on above: Performed By: #### 1 0070, 44600, 44170, 91217 #### [facility] [address] [facility] [place] [address], [facility] Monocytes (Bld) [#/Vol] 0.9 10*3/uL Normal 0.1-1.0 [facility] Comment on above: Performed By: #### 1 0070, 48969, 45766, 85220 #### [facility] [address] [place] [address], [facility] MONOS 7.0 % Normal 5.0-12.0 [facility] Comment on above: Performed By: #### 1 0070, 58080, 28848, 38161 #### [facility] [address] [facility] [place] [address], [facility] Neutrophils/100 WBC (Bld) 83.8 % High 40.0-72.0 [facility] Comment on above: Performed By: #### 1 0070, 57138, 97574, 59377 #### [facility] [address] [facility] [place] [address], [facility] Nucleated RBC/100 WBC (Bld) [Ratio] 0 % Normal 0-0 [facility] Comment on above: Performed By: #### 1 0070, 77240, 96915, 40456 #### [facility] [address] [place] [address], [facility] PLAT CNT 198 10*3/uL Normal 150-400 [facility] Comment on above: Performed By: #### 1 0070, 88868, 86101, 75829 #### [facility] [address] [place] [address], [facility] RBC (Bld) [#/Vol] 4.77 10*6/uL Normal 4.20-5.70 [facility] Comment on above: Performed By: #### 1 0070, 94398, 23208, 67520 #### [facility] [address] [place] [address], [place] WBC (Bld) [#/Vol] 12.15 10*3/uL High 4.00-10.60 [facility] Comment on above: Performed By: #### 1 0070, 92274, 07989, 31864 #### [facility] [address] [place] [address], [facility] LIVER BATTERYon 07-27-2021 Albumin [Mass/Vol] 3.3 g/dL Low 3.5-5.7 [facility] Comment on above: Order Comment: No: D o not add to previous draw Performed By: #### 1 0070, 76166, 07898, 42467 #### [facility] [address] [place] [address], [facility] ALKALINE PHOSPH 124 IU/L High 34-104 [facility] Comment on above: Order Comment: No: D o not add to previous draw Performed By: #### 1 0070, 55070, 98929, 46093 #### [facility] [address] [place] [address], [place] ALT [Catalytic activity/Vol] 58 U/L High 7-52 [facility] Comment on above: Order Comment: No: D o not add to previous draw Performed By: #### 1 0070, 44351, 92123, 82328 #### [facility] [address] [place] [address], [place] AST [Catalytic activity/Vol] 48 U/L High 13-39 [facility] Comment on above: Order Comment: No: D o not add to previous draw Performed By: #### 1 0070, 75355, 24640, 01889 #### [facility] [address] [place] [address], [place] Bilirubin [Mass/Vol] 0.8 mg/dL Normal 0.3-1.0 [facility] Comment on above: Order Comment: No: D o not add to previous draw Performed By: #### 1 0070, 64160, 68495, 39828 #### [facility] [address] [place] [address], [facility] Bilirubin.direct [Mass/Vol] 0.3 mg/dL High 0.0-0.2 [facility] Comment on above: Order Comment: No: D o not add to previous draw Performed By: #### 1 0070, 15123, 58945, 99250 #### [facility] [address] [place] [address], [facility] Protein [Mass/Vol] 6.2 g/dL Normal 6.0-8.3 [facility] Comment on above: Order Comment: No: D o not add to previous draw Performed By: #### 1 0070, 11470, 65414, 08551 #### [facility] [address] [place] [address], [place] MAGNESIUM BLOODon 07-27-2021 Magnesium [Mass/Vol] 1.8 mg/dL Low 1.9-2.7 [facility] Comment on above: Order Comment: No: D o not add to previous draw Performed By: #### 1 0070, 10877, 07617, 12954 #### [facility] [address] [place] [address], [place] PHOSPHORUS BLOODon Phosphate [Mass/Vol] 2.9 mg/dL Normal 2.5-5.0 [facility] Comment on above: Order Comment: No: D o not add to previous draw Performed By: #### 1 0070, 73046, 74639, 77634 #### [facility] [address] POC GLUCOSE LABon 07-27-2021 Glucose [Mass/Vol] 260 mg/dL High 70-100 [facility] Comment on above: Performed By: #### 8 5499 #### [facility] [address] [place] [address], [facility] Glucose [Mass/Vol] 225 mg/dL High 70-100 [facility] Comment on above: Performed By: #### 1 0070, 08157, 32509, 90847 #### [facility] [address] [facility] [address] PROTHROMBIN TIMEon INR Coag (PPP) [Relative time] 1.22 {INR} High 0.91-1.16 [facility] Comment on above: Order Comment: No: [...] CHEST 1995;[id number]. Performed By: #### 1 0070, 33096, 10930, 13859 #### [facility] [address] [place] [address], [facility] PT Coag (PPP) [Time] 15.4 s High 12.3-14.8 [facility] Comment on above: Order Comment: No: D o not add to previous draw Result Comment: ALL RESULTS MUST BE INTERPRETED WITH RESPECT TO BLOOD DRAWING ARTIFACT OR DILUTION ERROR OF ANTICOAGULANT AT THE TIME OF SAMPLING. Performed By: #### 1 0070, 80721, 73602, 78017 #### [facility] [address] [place] [address], [facility] BASIC METABOLIC PANELon 10-2 Calcium [Mass/Vol] 8.5 mg/dL Low 8.6-10.3 [facility] Comment on above: Order Comment: No: D o not add to previous draw Performed By: #### 8 5499 #### [facility] [address] [place] [address], [facility] Chloride [Moles/Vol] 108 mmol/L High 98-107 [facility] [place] Comment on above: Order Comment: No: D o not add to previous draw Performed By: #### 8 5499 #### [facility] [address] [place] [address], [facility] CO2 [Moles/Vol] 24 mmol/L Normal 21-31 [facility] [place] Comment on above: Order Comment: No: D o not add to previous draw Performed By: #### 8 5499 #### [facility] [address] [place] [address], [facility] Creatinine [Mass/Vol] 1.23 mg/dL Normal 0.70-1.30 [facility] [place] Comment on above: Order Comment: No: D o not add to previous draw Performed By: #### 8 5499 #### [facility] [address] [place] [address], [facility] eGFR- non- 60 ml/min/1.73sq m Abnormal >60 [facility] [place] Comment on above: Order Comment: No: D o not add to previous draw Performed By: #### 8 5499 #### [facility] [address] [place] [address], [place] GFR/1.73 sq M.predicted among blacks MDRD (S/P/Bld) [Vol rate/Area] mL/min/{1.73_m2} Normal >60 [facility] [place] Comment on above: Order Comment: No: D o not add to previous draw Performed By: #### 8 5499 #### [facility] [address] [place] [address], [place] Glucose [Mass/Vol] 141 mg/dL High 70-100 [facility] [place] Comment on above: Order Comment: No: D o not add to previous draw Performed By: #### 8 5499 #### [facility] [address] [place] [address], [place] Potassium [Moles/Vol] 3.5 mmol/L Normal 3.5-5.1 [facility] [place] Comment on above: Order Comment: No: D o not add to previous draw Performed By: #### 8 5499 #### [facility] [address] [place] [address], [place] Sodium [Moles/Vol] 139 mmol/L Normal 136-145 [facility] [place] Comment on above: Order Comment: No: D o not add to previous draw Performed By: #### 8 5499 #### [facility] [address] [place] [address], [place] Urea nitrogen [Mass/Vol] 18 mg/dL Normal 7-25 [facility] [place] Comment on above: Order Comment: No: D o not add to previous draw Performed By: #### 8 5499 #### [facility] [address] [place] [address], [place] CBC COMPLETE BLOOD COUNTon - Erythrocyte distribution width (RBC) [Ratio] 13.2 % Normal 11.5-15.0 [facility] [place] Comment on above: Order Comment: No: D o not add to previous draw Performed By: #### 1 0070, 32692, 30314, 85155 #### [facility] [address] [place] [address], [facility] Hematocrit (Bld) [Volume fraction] 42.7 % Normal 39.0-50.0 [facility] [place] Comment on above: Order Comment: No: D o not add to previous draw Performed By: #### 1 0070, 97383, 16216, 41318 #### [facility] [address] [place] [address], [facility] Hemoglobin (Bld) [Mass/Vol] 14.5 g/dL Normal 13.0-17.0 [facility] [place] Comment on above: Order Comment: No: D o not add to previous draw Performed By: #### 1 0070, 04971, 26847, 31884 #### [facility] [address] [place] [address], [facility] MCH (RBC) [Entitic mass] 32.0 pg Normal 27.0-33.0 [facility] [place] Comment on above: Order Comment: No: D o not add to previous draw Performed By: #### 1 0070, 37034, 34925, 01638 #### [facility] [address] [place] [address], [facility] MCHC (RBC) [Mass/Vol] 34.0 g/dL Normal 32.0-35.0 [facility] [place] Comment on above: Order Comment: No: D o not add to previous draw Performed By: #### 1 0070, 28275, 35198, 84263 #### [facility] [address] [place] [id number], [facility] MCV (RBC) [Entitic vol] 94.3 fL Normal 82.0-98.0 [facility] [place] Comment on above: Order Comment: No: D o not add to previous draw Performed By: #### 1 0070, 04961, 26127, 87532 #### [facility] [address] [place] [address], [facility] Nucleated RBC/100 WBC (Bld) [Ratio] 0 % Normal 0-0 [facility] [place] Comment on above: Order Comment: No: D o not add to previous draw Performed By: #### 1 0070, 08346, 71867, 81450 #### [facility] [address] [place] [address], [facility] PLAT CNT 179 10*3/uL Normal 150-400 [facility] [place] Comment on above: Order Comment: No: D o not add to previous draw Performed By: #### 1 0070, 48942, 44690, 58637 #### [facility] [address] [place] [address], [facility] RBC (Bld) [#/Vol] 4.53 10*6/uL Normal 4.20-5.70 [facility] [place] Comment on above: Order Comment: No: D o not add to previous draw Performed By: #### 1 0070, 52395, 14612, 05687 #### [facility] [address] [place] [address], [facility] WBC (Bld) [#/Vol] 7.86 10*3/uL Normal 4.00-10.60 [facility] [place] Comment on above: Order Comment: No: D o not add to previous draw Performed By: #### 1 0070, 28519, 58747, 08232 #### [facility] [address] [place] [address], [facility] LIVER BATTERYon 07-26-2021 Albumin [Mass/Vol] 3.2 g/dL Low 3.5-5.7 [facility] [place] Comment on above: Order Comment: No: D o not add to previous draw Performed By: #### 0 0071, 50123 #### [facility] [address] [place] [id number], [facility] ALKALINE PHOSPH 114 IU/L High 34-104 [facility] [place] Comment on above: Order Comment: No: D o not add to previous draw Performed By: #### 0 0071, 52131 #### [facility] [address] [place] [address], [place] ALT [Catalytic activity/Vol] 37 U/L Normal 7-52 [facility] [place] Comment on above: Order Comment: No: D o not add to previous draw Performed By: #### 0 0071, 29247 #### [facility] [address] [place] [address], [place] AST [Catalytic activity/Vol] 28 U/L Normal 13-39 [facility] [place] Comment on above: Order Comment: No: D o not add to previous draw Performed By: #### 0 0071, 92391 #### [facility] [address] [place] [address], [place] Bilirubin [Mass/Vol] 0.6 mg/dL Normal 0.3-1.0 [facility] [place] Comment on above: Order Comment: No: D o not add to previous draw Performed By: #### 0 0071, 00469 #### [facility] [address] [place] [address], [place] Bilirubin.direct [Mass/Vol] 0.1 mg/dL Normal 0.0-0.2 [facility] [place] Comment on above: Order Comment: No: D o not add to previous draw Performed By: #### 0 0071, 58916 #### [facility] [address] [place] [address], [place] Protein [Mass/Vol] 6.3 g/dL Normal 6.0-8.3 [facility] [place] Comment on above: Order Comment: No: D o not add to previous draw Performed By: #### 0 0071, 31729 #### [facility] [address] [place] [address], [place] Operative Reporton 1 Operative Report MR#: [id number] [facility] Pt. Name: Andry Pierre Room #: [id number] Discharge Date: Birthdate: 1960 OPERATIVE REPORT DATE [...] Olivier M.D. Date Trans: 07/26/2021 04:31 P/ [id number] cc: Luis Mccormick M.D. [address] [id number] Normal [facility] [place] POC GLUCOSE LABon 07-26-2021 Glucose [Mass/Vol] 155 mg/dL High 70-100 [facility] [place] Comment on above: Performed By: #### 1 0070, 16333, 02308, 03626 #### [facility] [address] [place] [address], [place] Glucose [Mass/Vol] 149 mg/dL High 70-100 [facility] [place] Comment on above: Performed By: #### 8 5499 #### [facility] [address] [place] [address], [place] Glucose [Mass/Vol] 123 mg/dL High 70-100 [facility] [place] Comment on above: Performed By: #### 1 0070, 44584, 33804, 63906 #### [facility] [address] [place] [address], [place] Glucose [Mass/Vol] 126 mg/dL High 70-100 [facility] [place] Comment on above: Performed By: #### 8 5499 #### [facility] [address] [place] [address], [place] PROTHROMBIN TIMEon INR Coag (PPP) [Relative time] 1.20 {INR} High 0.91-1.16 [facility] [place] Comment on above: Order Comment: No: D [...] CHEST 1995;108:231S-246S. Performed By: #### 1 0070, 79264, 21442, 46470 #### [facility] [address] [place] [address], [facility] PT Coag (PPP) [Time] 15.2 s High 12.3-14.8 [facility] [place] Comment on above: Order Comment: No: D o not add to previous draw Result Comment: ALL RESULTS MUST BE INTERPRETED WITH RESPECT TO BLOOD DRAWING ARTIFACT OR DILUTION ERROR OF ANTICOAGULANT AT THE TIME OF SAMPLING. Performed By: #### 1 0070, 77195, 77757, 80630 #### [facility] [address] [place] [address], [facility] APTTon 07-25-2021 aPTT Coag (Bld) [Time] 29.3 s Normal 25.0-35.0 [facility] [place] Comment on above: Order Comment: No: D [...] THIS PURPOSE. Performed By: #### 1 0070, 16625, 82808, 91732 #### [facility] [address] aPTT Coag (Bld) [Time] 28.7 s Normal 25.0-35.0 [facility] [place] Comment on above: Order Comment: No: D [...] THIS PURPOSE. Performed By: #### 1 0070, 87723, 59462, 35169 #### [facility] [address] BASIC METABOLIC PANELon 10-2 0-2020 Calcium [Mass/Vol] 8.3 mg/dL Low 8.6-10.3 [facility] [place] Comment on above: Order Comment: No: D o not add to previous draw Performed By: #### 1 0, 84853, 40160, 32233 #### [facility] [address] [place] [address], [facility] Chloride [Moles/Vol] 111 mmol/L High 98-107 [facility] [place] Comment on above: Order Comment: No: D o not add to previous draw Performed By: #### 1 0070, 55151, 96907, 31469 #### [facility] [address] [place] [address], [facility] CO2 [Moles/Vol] 26 mmol/L Normal 21-31 [facility] [place] Comment on above: Order Comment: No: D o not add to previous draw Performed By: #### 1 0070, 18220, 08020, 53238 #### [facility] [address] [place] [address], [place] Creatinine [Mass/Vol] 1.25 mg/dL Normal 0.70-1.30 [facility] [place] Comment on above: Order Comment: No: D o not add to previous draw Performed By: #### 1 0070, 31158, 56354, 69473 #### [facility] [address] [place] [address], [place] eGFR- non- 59 ml/min/1.73sq m Abnormal >60 [facility] [place] Comment on above: Order Comment: No: D o not add to previous draw Performed By: #### 1 0070, 24022, 16310, 91858 #### [facility] [address] [place] [address], [place] GFR/1.73 sq M.predicted among blacks MDRD (S/P/Bld) [Vol rate/Area] mL/min/{1.73_m2} Normal >60 [facility] [place] Comment on above: Order Comment: No: D o not add to previous draw Performed By: #### 1 0070, 51292, 70450, 86674 #### [facility] [address] [place] [address], [place] Glucose [Mass/Vol] 107 mg/dL High 70-100 [facility] [place] Comment on above: Order Comment: No: D o not add to previous draw Performed By: #### 1 0070, 75025, 79890, 19725 #### [facility] [address] [place] [address], [place] Potassium [Moles/Vol] 3.6 mmol/L Normal 3.5-5.1 [facility] [place] Comment on above: Order Comment: No: D o not add to previous draw Performed By: #### 1 0070, 04172, 72061, 50774 #### [facility] [address] [place] [address], [place] Sodium [Moles/Vol] 143 mmol/L Normal 136-145 [facility] [place] Comment on above: Order Comment: No: D o not add to previous draw Performed By: #### 1 0070, 56270, 48178, 66978 #### [facility] [address] [place] [address], [facility] Urea nitrogen [Mass/Vol] 22 mg/dL Normal 7-25 [facility] [place] Comment on above: Order Comment: No: D o not add to previous draw Performed By: #### 1 0070, 78824, 40516, 81009 #### [facility] [address] [place] [id number], [facility] CBC COMPLETE BLOOD COUNTon Erythrocyte distribution width (RBC) [Ratio] 13.3 % Normal 11.5-15.0 [facility] [place] Comment on above: Order Comment: No: D o not add to previous draw Performed By: #### 1 0070, 18827, 17134, 91761 #### [facility] [address] [place] [id number], [facility] Hematocrit (Bld) [Volume fraction] 46.9 % Normal 39.0-50.0 [facility] [place] Comment on above: Order Comment: No: D o not add to previous draw Performed By: #### 1 0070, 12519, 91443, 03509 #### [facility] [address] [place] [address], [facility] Hemoglobin (Bld) [Mass/Vol] 15.4 g/dL Normal 13.0-17.0 [facility] [place] Comment on above: Order Comment: No: D o not add to previous draw Performed By: #### 1 0070, 57471, 04074, 08603 #### [facility] [address] [place] [address], [place] MCH (RBC) [Entitic mass] 31.3 pg Normal 27.0-33.0 [facility] [place] Comment on above: Order Comment: No: D o not add to previous draw Performed By: #### 1 0070, 42335, 66649, 46347 #### [facility] [address] [place] [id number], [facility] MCHC (RBC) [Mass/Vol] 32.8 g/dL Normal 32.0-35.0 [facility] [place] Comment on above: Order Comment: No: D o not add to previous draw Performed By: #### 1 0070, 41734, 81845, 02643 #### [facility] [address] [place] [address], [facility] MCV (RBC) [Entitic vol] 95.3 fL Normal 82.0-98.0 [facility] [place] Comment on above: Order Comment: No: D o not add to previous draw Performed By: #### 1 0070, 42668, 98097, 08032 #### [facility] [address] [facility] [place] [id number], [facility] Nucleated RBC/100 WBC (Bld) [Ratio] 0 % Normal 0-0 [facility] [place] Comment on above: Order Comment: No: D o not add to previous draw Performed By: #### 1 0070, 94077, 49698, 80347 #### [facility] [address] [facility] [place] [address], [facility] PLAT CNT 183 10*3/uL Normal 150-400 [facility] [place] Comment on above: Order Comment: No: D o not add to previous draw Performed By: #### 1 0070, 05778, 61228, 83757 #### [facility] [address] [facility] [place] [address], [facility] RBC (Bld) [#/Vol] 4.92 10*6/uL Normal 4.20-5.70 [facility] [place] Comment on above: Order Comment: No: D o not add to previous draw Performed By: #### 1 0070, 53031, 15828, 16251 #### [facility] [address] [place] [address], [place] WBC (Bld) [#/Vol] 9.70 10*3/uL Normal 4.00-10.60 [facility] [place] Comment on above: Order Comment: No: D o not add to previous draw Performed By: #### 1 0070, 28159, 26210, 21079 #### [facility] [address] [place] [address], [facility] LIPASE BLOODon 07-25-2021 LIPASE 34 Units/L Normal 11-82 [facility] [place] Comment on above: Order Comment: No: D o not add to previous draw Performed By: #### 1 0070, 93168, 60045, 86719 #### [facility] [address] [place] [address], [facility] LIVER BATTERYon 07-25-2021 Albumin [Mass/Vol] 3.0 g/dL Low 3.5-5.7 [facility] [place] Comment on above: Order Comment: No: D o not add to previous draw Performed By: #### 1 0070, 31393, 98006, 60052 #### [facility] [address] [place] [address], [facility] ALKALINE PHOSPH 113 IU/L High 34-104 [facility] [place] Comment on above: Order Comment: No: D o not add to previous draw Performed By: #### 1 0070, 35995, 10728, 13015 #### [facility] [address] [place] [address], [facility] ALT [Catalytic activity/Vol] 37 U/L Normal 7-52 [facility] [place] Comment on above: Order Comment: No: D o not add to previous draw Performed By: #### 1 0070, 59109, 70019, 71447 #### [facility] [address] [place] [address], [place] AST [Catalytic activity/Vol] 36 U/L Normal 13-39 [facility] [place] Comment on above: Order Comment: No: D o not add to previous draw Performed By: #### 1 0070, 17348, 57398, 14488 #### [facility] [address] [place] [address], [place] Bilirubin [Mass/Vol] 0.6 mg/dL Normal 0.3-1.0 [facility] [place] Comment on above: Order Comment: No: D o not add to previous draw Performed By: #### 1 0070, 64819, 37092, 28243 #### [facility] [address] [place] [address], [place] Bilirubin.direct [Mass/Vol] 0.1 mg/dL Normal 0.0-0.2 [facility] [place] Comment on above: Order Comment: No: D o not add to previous draw Performed By: #### 1 0070, 45505, 03076, 09045 #### [facility] [address] [place] [address], [place] Protein [Mass/Vol] 5.3 g/dL Low 6.0-8.3 [facility] Comment on above: Order Comment: No: D o not add to previous draw Performed By: #### 1 0070, 87329, 81970, 05892 #### [facility] [address] [place] [address], [place] POC GLUCOSE LABon 07-25-2021 Glucose [Mass/Vol] 388 mg/dL High 70-100 [facility] Comment on above: Performed By: #### 1 0070, 33349, 00981, 50245 #### [facility] [address] [place] [address], [place] Glucose [Mass/Vol] 173 mg/dL High 70-100 [facility] Comment on above: Performed By: #### 8 5499 #### [facility] [address] [place] [address], [place] Glucose [Mass/Vol] 178 mg/dL High 70-100 [facility] [place] Comment on above: Performed By: #### 8 5949 #### [facility] [address] Glucose [Mass/Vol] 106 mg/dL High 70-100 [facility] Comment on above: Performed By: #### 1 69, 12435, 11478, 45003 #### [facility] [address] [facility] [address] PROTHROMBIN TIMEon 10-20-202 1 INR Coag (PPP) [Relative time] 1.30 {INR} High 0.91-1.16 [facility] Comment on above: Order Comment: No: D [...] CHEST 1995;108:231S-246S. Performed By: #### 1 0, 88805, 47858, 74943 #### [facility] [address] [place] [address], [facility] PT Coag (PPP) [Time] 16.2 s High 12.3-14.8 [facility] Comment on above: Order Comment: No: D o not add to previous draw Result Comment: ALL RESULTS MUST BE INTERPRETED WITH RESPECT TO BLOOD DRAWING ARTIFACT OR DILUTION ERROR OF ANTICOAGULANT AT THE TIME OF SAMPLING. Performed By: #### 1 0070, 72658, 03825, 09242 #### [facility] [address] [place] [address], [facility] UFH HEPARIN ASSAYon 07-25-20 UNFRACTIONATED HEPARIN <0.10 Critically low 0.30-0.70 [facility] Comment on above: Result Comment: Resu lts called. Accur[place] 4D [place] [address], 25-Jul-2021. Patient is not on anything that would raise the uFH value per nurse Caitlin. Rivaroxaban and Apixaban will interfere with the anti Xa assay used to monitor UFH and LMWH. Performed By: #### 1 0070, 61442, 60193, 76503 #### [facility] [address] [place] [address], [facility] UNFRACTIONATED HEPARIN <0.10 Critically low 0.30-0.70 [facility] Comment on above: Result Comment: Resu lt checked and called. Accurately read back by Caitlin Koch RN at 1024 Rivaroxaban and Apixaban will interfere with the anti Xa assay used to monitor UFH and LMWH. Performed By: #### 1 0070, 77237, 22457, 43963 #### [facility] [address] [place] [address], [facility] BASIC METABOLIC PANELon 07-06 Calcium [Mass/Vol] 8.7 mg/dL Normal 8.6-10.3 [facility] Comment on above: Order Comment: No: D o not add to previous draw Performed By: #### 0 0071, 19701 #### [facility] [address] [place] [address], [facility] Chloride [Moles/Vol] 105 mmol/L Normal 98-107 [facility] Comment on above: Order Comment: No: D o not add to previous draw Performed By: #### 0 0071, 26658 #### [facility] [address] [place] [address], [place] CO2 [Moles/Vol] 30 mmol/L Normal 21-31 [facility] Comment on above: Order Comment: No: D o not add to previous draw Performed By: #### 0 0071, 95906 #### [facility] [address] [place] [address], [facility] Creatinine [Mass/Vol] 1.52 mg/dL High 0.70-1.30 [facility] Comment on above: Order Comment: No: D o not add to previous draw Performed By: #### 0 0071, 00136 #### [facility] [address] [place] [address], [facility] eGFR- 57 ml/min/1.73sq m Abnormal >60 [facility] Comment on above: Order Comment: No: D o not add to previous draw Performed By: #### 0 0071, 58324 #### [facility] [address] [place] [address], [facility] eGFR- non- 47 ml/min/1.73sq m Abnormal >60 [facility] Comment on above: Order Comment: No: D o not add to previous draw Performed By: #### 0 0071, 71004 #### [facility] [address] [place] [address], [place] Glucose [Mass/Vol] 331 mg/dL High 70-100 [facility] Comment on above: Order Comment: No: D o not add to previous draw Performed By: #### 0 0071, 48896 #### [facility] [address] [place] [address], [place] Potassium [Moles/Vol] 4.3 mmol/L Normal 3.5-5.1 [facility] Comment on above: Order Comment: No: D o not add to previous draw Performed By: #### 0 0071, 45618 #### [facility] [address] [place] [address], [place] Sodium [Moles/Vol] 139 mmol/L Normal 136-145 [facility] Comment on above: Order Comment: No: D o not add to previous draw Performed By: #### 0 0071, 87545 #### [facility] [address] [place] [address], [facility] Urea nitrogen [Mass/Vol] 26 mg/dL High 7-25 [facility] Comment on above: Order Comment: No: D o not add to previous draw Performed By: #### 0 0071, 49520 #### [facility] [address] CBC COMPLETE BLOOD COUNTon Erythrocyte distribution width (RBC) [Ratio] 13.2 % Normal 11.5-15.0 [facility] Comment on above: Order Comment: No: D o not add to previous draw Performed By: #### 1 0070, 69313, 26967, 84958 #### [facility] [address] Hematocrit (Bld) [Volume fraction] 42.9 % Normal 39.0-50.0 [facility] [place] Comment on above: Order Comment: No: D o not add to previous draw Performed By: #### 1 0070, 23025, 36626, 55698 #### [facility] [address] [place] [address], [facility] Hemoglobin (Bld) [Mass/Vol] 13.7 g/dL Normal 13.0-17.0 [facility] [place] Comment on above: Order Comment: No: D o not add to previous draw Performed By: #### 1 0070, 71429, 53816, 65241 #### [facility] [address] [place] [id number], [facility] MCH (RBC) [Entitic mass] 30.9 pg Normal 27.0-33.0 [facility] [place] Comment on above: Order Comment: No: D o not add to previous draw Performed By: #### 1 0070, 86616, 33102, 54850 #### [facility] [address] [facility] MCHC (RBC) [Mass/Vol] 31.9 g/dL Low 32.0-35.0 [facility] [place] Comment on above: Order Comment: No: D o not add to previous draw Performed By: #### 1 0070, 67690, 64307, 90539 #### [facility] [address] [facility] [place] [address], [facility] MCV (RBC) [Entitic vol] 96.6 fL Normal 82.0-98.0 [facility] [place] Comment on above: Order Comment: No: D o not add to previous draw Performed By: #### 1 0070, 03993, 57703, 92822 #### [facility] [address] [place] [address], [facility] Nucleated RBC/100 WBC (Bld) [Ratio] 0 % Normal 0-0 [facility] [place] Comment on above: Order Comment: No: D o not add to previous draw Performed By: #### 1 0070, 19586, 71358, 70696 #### [facility] [address] [place] [address], [facility] PLAT CNT 184 10*3/uL Normal 150-400 [facility] [place] Comment on above: Order Comment: No: D o not add to previous draw Performed By: #### 1 0070, 26880, 21350, 14561 #### [facility] [address] [place] [address], [facility] RBC (Bld) [#/Vol] 4.44 10*6/uL Normal 4.20-5.70 [facility] [place] Comment on above: Order Comment: No: D o not add to previous draw Performed By: #### 1 0070, 40288, 62892, 60823 #### [facility] [address] [facility] [place] [address], [facility] WBC (Bld) [#/Vol] 8.42 10*3/uL Normal 4.00-10.60 [facility] [place] Comment on above: Order Comment: No: D o not add to previous draw Performed By: #### 1 0070, 55464, 32038, 80210 #### [address] ERCPon 07-24-2021 ERCP [facility] [place] Department of Radiology [address] [place] [id number] Patient Name: ANDRY PIERRE : 1960 Sex: M Age: Race: White Pt. Location: [address] [place] [address] Patient Status: I Ordered Date: 07/24/2021 7:00:00 [...] details. Electronically signed: Khoa Chahal. Transcribed by: [email or web address], User Resident: Electronically Signed by: KOHA CHAHAL @ 07/25/2021 08:48 AM Normal [facility] [place] Comment on above: Order Comment: ERCP Endoscopy Reporton Endoscopy Report MR#: [id number] [facility] Pt. Name: Andry Pierre Surgery Date: 07/24/2021 Room #: [id number] Date of : 1960 PROCEDURE NOTE ATTENDING: Amy Remy M.D. SNAG GRINDER: Cyrus Decker MD PROCEDURE: ERCP with biliary [...] Decker MD Date Trans: 07/24/2021 09:24 P/michaela DN_[id number] cc: Luis Mccormick M.D. [address] [facility] [id number] Normal [facility] LIVER BATTERYon 07-24-2021 Albumin [Mass/Vol] 3.3 g/dL Low 3.5-5.7 [facility] [place] Comment on above: Order Comment: No: D o not add to previous draw Performed By: #### 0 0071, 52508 #### [facility] [address] [place] [address], [facility] ALKALINE PHOSPH 106 IU/L High 34-104 [facility] [place] Comment on above: Order Comment: No: D o not add to previous draw Performed By: #### 0 0071, 11264 #### [facility] [address] [place] [address], [place] ALT [Catalytic activity/Vol] 26 U/L Normal 7-52 [facility] [place] Comment on above: Order Comment: No: D o not add to previous draw Performed By: #### 0 0071, 27087 #### [facility] [address] [place] [address], [place] AST [Catalytic activity/Vol] 17 U/L Normal 13-39 [facility] [place] Comment on above: Order Comment: No: D o not add to previous draw Performed By: #### 0 0071, 44391 #### [facility] [address] [place] [address], [place] Bilirubin [Mass/Vol] 0.3 mg/dL Normal 0.3-1.0 [facility] [place] Comment on above: Order Comment: No: D o not add to previous draw Performed By: #### 0 0071, 61612 #### [facility] [address] [place] [address], [place] Bilirubin.direct [Mass/Vol] 0.0 mg/dL Normal 0.0-0.2 [facility] [place] Comment on above: Order Comment: No: D o not add to previous draw Performed By: #### 0 0071, 19215 #### [facility] [address] [place] [address], [place] Protein [Mass/Vol] 6.1 g/dL Normal 6.0-8.3 [facility] [place] Comment on above: Order Comment: No: D o not add to previous draw Performed By: #### 0 0071, 56044 #### [facility] [address] [place] [address], [place] POC GLUCOSE LABon 07-24-2021 Glucose [Mass/Vol] 89 mg/dL Normal 70-100 [facility] [place] Comment on above: Performed By: #### 8 5499 #### [facility] [address] [place] [address], [place] Glucose [Mass/Vol] 89 mg/dL Normal 70-100 [facility] [place] Comment on above: Performed By: #### 1 0070, 34640, 10197, 29020 #### [facility] [address] [place] [address], [place] Glucose [Mass/Vol] 166 mg/dL High 70-100 [facility] [place] Comment on above: Performed By: #### 8 5499 #### [facility] [address] [place] [address], [place] Glucose [Mass/Vol] 391 mg/dL High 70-100 [facility] [place] Comment on above: Performed By: #### 8 5499 #### [facility] [address] [place] [address], [facility] POC SARS COV2 ANTIGEN NEGATI VEon 07-24-2021 POC SARS COV2 ANTIGEN NEG Negative Normal NEGATIVE [facility] [place] Comment on above: Result Comment: Nega tive [...] signs and symptoms consistent with COVID-19. The [employer] COVID-19 Ag Card is a lateral flow [...] Accreditation. Performed By: #### 8 5499 #### [facility] [address] [facility] [address] PROTHROMBIN TIMEon INR Coag (PPP) [Relative time] 1.53 {INR} High 0.91-1.16 [facility] [place] Comment on above: Order Comment: No: D [...] CHEST 1995;108:231S-246S. Performed By: #### 1 0070, 53142, 32420, 20383 #### [facility] [address] [facility] [place] [address], [facility] PT Coag (PPP) [Time] 18.3 s High 12.3-14.8 [facility] [place] Comment on above: Order Comment: No: D o not add to previous draw Result Comment: ALL RESULTS MUST BE INTERPRETED WITH RESPECT TO BLOOD DRAWING ARTIFACT OR DILUTION ERROR OF ANTICOAGULANT AT THE TIME OF SAMPLING. Performed By: #### 1 0070, 42393, 05723, 75908 #### [facility] [address] [place] [id number], [facility] COMP METABOLIC PANELon 07-23 Albumin [Mass/Vol] 3.5 g/dL Normal 3.5-5.7 [facility] [place] Comment on above: Order Comment: No: D o not add to previous draw Performed By: #### 8 5499 #### [facility] [address] [place] [address], [facility] ALKALINE PHOSPH 122 IU/L High 34-104 [facility] [place] Comment on above: Order Comment: No: D o not add to previous draw Performed By: #### 8 5499 #### [facility] [address] [place] [address], [place] ALT [Catalytic activity/Vol] 32 U/L Normal 7-52 [facility] [place] Comment on above: Order Comment: No: D o not add to previous draw Performed By: #### 8 5499 #### [facility] [address] [place] [address], [place] AST [Catalytic activity/Vol] 22 U/L Normal 13-39 [facility] [place] Comment on above: Order Comment: No: D o not add to previous draw Performed By: #### 8 5499 #### [facility] [address] [place] [address], [place] Bilirubin [Mass/Vol] 0.4 mg/dL Normal 0.3-1.0 [facility] Comment on above: Order Comment: No: D o not add to previous draw Performed By: #### 8 5499 #### [facility] [address] [place] [address], [place] Calcium [Mass/Vol] 8.5 mg/dL Low 8.6-10.3 [facility] Comment on above: Order Comment: No: D o not add to previous draw Performed By: #### 8 5499 #### [facility] [address] [place] [address], [place] Chloride [Moles/Vol] 110 mmol/L High 98-107 [facility] [place] Comment on above: Order Comment: No: D o not add to previous draw Performed By: #### 8 5499 #### [facility] [address] [place] [address], [place] CO2 [Moles/Vol] 23 mmol/L Normal 21-31 [facility] [place] Comment on above: Order Comment: No: D o not add to previous draw Performed By: #### 8 5499 #### [facility] [address] [place] [address], [place] Creatinine [Mass/Vol] 1.33 mg/dL High 0.70-1.30 [facility] [place] Comment on above: Order Comment: No: D o not add to previous draw Performed By: #### 8 5499 #### [facility] [address] [place] [address], [place] eGFR- non- 55 ml/min/1.73sq m Abnormal >60 [facility] [place] Comment on above: Order Comment: No: D o not add to previous draw Performed By: #### 8 5499 #### [facility] [address] [place] [address], [place] GFR/1.73 sq M.predicted among blacks MDRD (S/P/Bld) [Vol rate/Area] mL/min/{1.73_m2} Normal >60 [facility] [place] Comment on above: Order Comment: No: D o not add to previous draw Performed By: #### 8 5499 #### [facility] [address] [place] [address], [place] Glucose [Mass/Vol] 198 mg/dL High 70-100 [facility] [place] Comment on above: Order Comment: No: D o not add to previous draw Performed By: #### 8 5499 #### [facility] [address] [place] [address], [place] Potassium [Moles/Vol] 3.5 mmol/L Normal 3.5-5.1 [facility] [place] Comment on above: Order Comment: No: D o not add to previous draw Performed By: #### 8 5499 #### [facility] [address] [place] [address], [place] Protein [Mass/Vol] 6.3 g/dL Normal 6.0-8.3 [facility] [place] Comment on above: Order Comment: No: D o not add to previous draw Performed By: #### 8 5499 #### [facility] [address] [place] [address], [place] Sodium [Moles/Vol] 142 mmol/L Normal 136-145 [facility] [place] Comment on above: Order Comment: No: D o not add to previous draw Performed By: #### 8 5499 #### [facility] [address] [place] [address], [place] Urea nitrogen [Mass/Vol] 25 mg/dL Normal 7-25 [facility] [place] Comment on above: Order Comment: No: D o not add to previous draw Performed By: #### 8 5499 #### [facility] [address] [place] [address], [place] POC GLUCOSE LABon 07-23-2021 Glucose [Mass/Vol] 325 mg/dL High 70-100 [facility] Comment on above: Performed By: #### 8 5499 #### [facility] [address] [place] [address], [place] Glucose [Mass/Vol] 290 mg/dL High 70-100 [facility] [place] Comment on above: Performed By: #### 1 0070, 99704, 19591, 45844 #### [facility] [address] [place] [address], [place] Glucose [Mass/Vol] 253 mg/dL High 70-100 [facility] Comment on above: Performed By: #### 1 0070, 78390, 14303, 76545 #### [facility] [address] [place] [address], [place] Glucose [Mass/Vol] 211 mg/dL High 70-100 [facility] Comment on above: Performed By: #### 8 5499 #### [facility] [address] [facility] [address] PROTHROMBIN TIMEon INR Coag (PPP) [Relative time] 1.92 {INR} High 0.91-1.16 [facility] Comment on above: Order Comment: Dirk wn [...] 1995;108:231S-246S. Performed By: #### 8 5499 #### [facility] [address] [facility] [place] [address], [facility] PT Coag (PPP) [Time] 21.9 s High 12.3-14.8 [facility] [place] Comment on above: Order Comment: Unkno wn Result Comment: ALL RESULTS MUST BE INTERPRETED WITH RESPECT TO BLOOD DRAWING ARTIFACT OR DILUTION ERROR OF ANTICOAGULANT AT THE TIME OF SAMPLING. Performed By: #### 8 5499 #### [facility] [address] [place] [address], [facility] APTTon 07-22-2021 aPTT Coag (Bld) [Time] 37.1 s High 25.0-35.0 [facility] [place] Comment on above: Order Comment: No: D [...] THIS PURPOSE. Performed By: #### 1 0070, 66768, 53453, 04553 #### [facility] [address] [place] [address], [facility] BASIC METABOLIC PANELon 10-1 Calcium [Mass/Vol] 8.3 mg/dL Low 8.6-10.3 [facility] Comment on above: Order Comment: No: D o not add to previous draw Performed By: #### 8 5499 #### [facility] [address] [place] [id number], [facility] Chloride [Moles/Vol] 109 mmol/L High 98-107 [facility] Comment on above: Order Comment: No: D o not add to previous draw Performed By: #### 8 5499 #### [facility] [address] [place] [address], [facility] CO2 [Moles/Vol] 28 mmol/L Normal 21-31 [facility] Comment on above: Order Comment: No: D o not add to previous draw Performed By: #### 8 5499 #### [facility] [address] [place] [address], [facility] Creatinine [Mass/Vol] 1.48 mg/dL High 0.70-1.30 [facility] [place] Comment on above: Order Comment: No: D o not add to previous draw Performed By: #### 8 5499 #### [facility] [address] [place] [address], [facility] eGFR- 59 ml/min/1.73sq m Abnormal >60 [facility] Comment on above: Order Comment: No: D o not add to previous draw Performed By: #### 8 5499 #### [facility] [address] [place] [address], [facility] eGFR- non- 48 ml/min/1.73sq m Abnormal >60 [facility] Comment on above: Order Comment: No: D o not add to previous draw Performed By: #### 8 5499 #### [facility] [address] [place] [address], [place] Glucose [Mass/Vol] 216 mg/dL High 70-100 [facility] Comment on above: Order Comment: No: D o not add to previous draw Performed By: #### 8 5499 #### [facility] [address] [place] [address], [place] Potassium [Moles/Vol] 4.6 mmol/L Normal 3.5-5.1 [facility] [place] Comment on above: Order Comment: No: D o not add to previous draw Performed By: #### 8 5499 #### [facility] [address] [place] [address], [place] Sodium [Moles/Vol] 141 mmol/L Normal 136-145 [facility] Comment on above: Order Comment: No: D o not add to previous draw Performed By: #### 8 5499 #### [facility] [address] [place] [address], [facility] Urea nitrogen [Mass/Vol] 26 mg/dL High 7-25 [facility] Comment on above: Order Comment: No: D o not add to previous draw Performed By: #### 8 5499 #### [facility] [address] [place] [address], [facility] CBC COMPLETE BLOOD COUNTon Erythrocyte distribution width (RBC) [Ratio] 13.2 % Normal 11.5-15.0 [facility] Comment on above: Order Comment: No: D o not add to previous draw Performed By: #### 8 5499 #### [facility] [address] [place] [address], [facility] Hematocrit (Bld) [Volume fraction] 45.8 % Normal 39.0-50.0 [facility] Comment on above: Order Comment: No: D o not add to previous draw Performed By: #### 8 5499 #### [facility] [address] [place] [address], [facility] Hemoglobin (Bld) [Mass/Vol] 14.8 g/dL Normal 13.0-17.0 [facility] Comment on above: Order Comment: No: D o not add to previous draw Performed By: #### 8 5499 #### [facility] [address] [place] [address], [facility] MCH (RBC) [Entitic mass] 31.0 pg Normal 27.0-33.0 [facility] Comment on above: Order Comment: No: D o not add to previous draw Performed By: #### 8 5499 #### [facility] [address] [place] [address], [facility] MCHC (RBC) [Mass/Vol] 32.3 g/dL Normal 32.0-35.0 [facility] Comment on above: Order Comment: No: D o not add to previous draw Performed By: #### 8 5499 #### [facility] [address] [place] [address], [facility] MCV (RBC) [Entitic vol] 95.8 fL Normal 82.0-98.0 [facility] Comment on above: Order Comment: No: D o not add to previous draw Performed By: #### 8 5499 #### [facility] [address] [place] [address], [facility] Nucleated RBC/100 WBC (Bld) [Ratio] 0 % Normal 0-0 [facility] Comment on above: Order Comment: No: D o not add to previous draw Performed By: #### 8 5499 #### [facility] [address] [place] [address], [place] PLAT CNT 209 10*3/uL Normal 150-400 [facility] Comment on above: Order Comment: No: D o not add to previous draw Performed By: #### 8 5499 #### [facility] [address] [place] [address], [place] RBC (Bld) [#/Vol] 4.78 10*6/uL Normal 4.20-5.70 [facility] Comment on above: Order Comment: No: D o not add to previous draw Performed By: #### 8 5499 #### [facility] [address] [place] [address], [facility] WBC (Bld) [#/Vol] 8.89 10*3/uL Normal 4.00-10.60 [facility] Comment on above: Order Comment: No: D o not add to previous draw Performed By: #### 8 5499 #### [facility] [address] [place] [address], [facility] LIVER BATTERYon 07-22-2021 Albumin [Mass/Vol] 3.2 g/dL Low 3.5-5.7 [facility] Comment on above: Performed By: #### 8 5499 #### [facility] [address] [place] [address], [place] ALKALINE PHOSPH 111 IU/L High 34-104 [facility] Comment on above: Performed By: #### 8 5499 #### [facility] [address] [place] [address], [place] ALT [Catalytic activity/Vol] 23 U/L Normal 7-52 [facility] Comment on above: Performed By: #### 8 5499 #### [facility] [address] [place] [address], [place] AST [Catalytic activity/Vol] 17 U/L Normal 13-39 [facility] Comment on above: Performed By: #### 8 5499 #### [facility] [address] [place] [address], [place] Bilirubin [Mass/Vol] 0.3 mg/dL Normal 0.3-1.0 [facility] Comment on above: Performed By: #### 8 5499 #### [facility] [address] [place] [address], [place] Bilirubin.direct [Mass/Vol] 0.0 mg/dL Normal 0.0-0.2 [facility] Comment on above: Performed By: #### 8 5499 #### [facility] [address] [place] [address], [place] Protein [Mass/Vol] 5.5 g/dL Low 6.0-8.3 [facility] Comment on above: Performed By: #### 8 5499 #### [facility] [address] [place] [address], [place] MAGNESIUM BLOODon 07-22-2021 Magnesium [Mass/Vol] 2.0 mg/dL Normal 1.9-2.7 [facility] Comment on above: Order Comment: No: D o not add to previous draw Performed By: #### 8 5499 #### [facility] [address] [place] [address], [place] PHOSPHORUS BLOODon Phosphate [Mass/Vol] 3.0 mg/dL Normal 2.5-5.0 [facility] Comment on above: Order Comment: No: D o not add to previous draw Performed By: #### 8 5499 #### [facility] [address] [place] [address], [place] POC GLUCOSE LABon 07-22-2021 Glucose [Mass/Vol] 223 mg/dL High 70-100 [facility] Comment on above: Performed By: #### 1 0070, 42776, 18645, 01675 #### [facility] [address] [place] [address], [place] Glucose [Mass/Vol] 222 mg/dL High 70-100 [facility] Comment on above: Performed By: #### 8 5499 #### [facility] [address] [place] [address], [facility] Glucose [Mass/Vol] 245 mg/dL High 70-100 [facility] Comment on above: Performed By: #### 8 5499 #### [facility] [address] [place] [address], [facility] Glucose [Mass/Vol] 202 mg/dL High 70-100 [facility] Comment on above: Performed By: #### 1 0070, 88069, 06015, 66190 #### [facility] [address] [facility] [address] PROTHROMBIN TIMEon 1 INR Coag (PPP) [Relative time] 2.27 {INR} High 0.91-1.16 [facility] Comment on above: Order Comment: No: [...] CHEST 1995;108:231S-246S. Performed By: #### 1 0070, 29798, 96711, 89565 #### [facility] [address] [place] [address], [place] PT Coag (PPP) [Time] 24.9 s High 12.3-14.8 [facility] Comment on above: Order Comment: No: D o not add to previous draw Result Comment: ALL RESULTS MUST BE INTERPRETED WITH RESPECT TO BLOOD DRAWING ARTIFACT OR DILUTION ERROR OF ANTICOAGULANT AT THE TIME OF SAMPLING. Performed By: #### 1 0070, 21688, 52044, 61298 #### [facility] [address] [place] [address], [place] Basic Metabolic Panelon 10-1 Calcium [Mass/Vol] 9.4 mg/dL Normal 8.2-10.2 [facility] Comment on above: Performed By: #### H EPATIC, CBC, LIPASE, BMP #### [facility] [address] Chloride [Moles/Vol] 103 mmol/L Normal 95-114 [facility] Comment on above: Performed By: #### H EPATIC, CBC, LIPASE, BMP #### [facility] [address] CO2 [Moles/Vol] 26.9 mmol/L Normal 22.0-30.0 [facility] Comment on above: Performed By: #### H EPATIC, CBC, LIPASE, BMP #### [facility] [address] [place] [id number] [place] Creatinine [Mass/Vol] 1.66 mg/dL High 0.64-1.27 [facility] Comment on above: Performed By: #### H EPATIC, CBC, LIPASE, BMP #### [facility] [address] [place] [address] [place] Creatinine Clr Calc Pharmacy 68.90 [facility] Comment on above: Performed By: #### H EPATIC, CBC, LIPASE, BMP #### [facility] [address] [place] [id number] [place] Estimated GFR ( Beata 51 [facility] Comment on above: Result Comment: GFR estimated reference range: According to KDOQI guidelines, <60 ml/min/1.73m2 is sufficient to diagnose a patient with chronic kidney disease. Performed By: #### H EPATIC, CBC, LIPASE, BMP #### [address] Estimated GFR (Non- Am 42 Normal [facility] Comment on above: Performed By: #### H EPATIC, CBC, LIPASE, BMP #### [address] Glucose [Mass/Vol] 442 mg/dL High 70-100 [facility] Comment on above: Result Comment: [facility] [place] Glucose Reference Range is dependent on time and content of last meal. Glucose of more than 200 mg/dL in a nonstressed, ambulatory subject supports the diagnosis of Diabetes Mellitus. ADA recommended reference range Performed By: #### H EPATIC, CBC, LIPASE, BMP #### [address] Potassium [Moles/Vol] 4.1 mmol/L Normal 3.5-5.1 [facility] Comment on above: Performed By: #### H EPATIC, CBC, LIPASE, BMP #### [address] Sodium [Moles/Vol] 140 mmol/L Normal 136-146 [facility] Comment on above: Performed By: #### H EPATIC, CBC, LIPASE, BMP #### [address] Urea nitrogen [Mass/Vol] 29 mg/dL High 9-23 [facility] Comment on above: Performed By: #### H EPATIC, CBC, LIPASE, BMP #### [address] COVID-19 Antigenon 1 COVID-19 Antigen Healthcare [...] its performance Tamera Disclaimer characteristic determined by babbel and Tamera Disclaimer validated at [facility]. This Tamera Disclaimer test has not been [...] is terminated or revoked sooner. PERFORMED BY: [place] [address] PATHOLOGIST COMPUTER TECHNOLOGY TRAINER TO [place] M.D. Normal [facility] Comment on above: Performed By: #### C OVID-19 TAMERA, SOFIANEG, COVID 19 [facility] #### [place] [id number] [facility] COVID-19 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 This test has not been FDA cleared [...] is terminated or revoked sooner. PERFORMED BY: [place] [address] PATHOLOGIST COMPUTER TECHNOLOGY TRAINER TO [place] M.D. Performed By: #### C OVID-19 TAMERA, SOFIANEG, COVID 19 [facility] #### [place] [id number] [facility] CT abdomen pelvis wo conon 1 CT abdomen pelvis wo con [facility] Main [place] [address] [place] [address] CT Scan Report Signed Patient: Andry Pierre MR#: [id number] 28 : 1960 Acct:[id number] Age/Sex: 60 / M ADM Date: 07/21/21 Loc: Room: [address] [place] [address] Type: ADM INOo Attending Dr: Feliciano Hernandez [...] Ricks Jr., M.D.07/21/2021 9:15 AM Dictation Location: [place] [address] Transcribed By: [facility] 07/21/21914 Dictated By: Duke Ricks Jr, MD 07/21/21903 Signed By: 07/21/21914 Normal [facility] Coagulation Profileon 2020 aPTT Coag (Bld) [Time] 37.9 s High 25.1-36.5 [facility] Comment on above: Result Comment: PERF ORMED BY: [place] [address] PATHOLOGIST COMPUTER TECHNOLOGY TRAINER TO [place] M.D. Performed By: #### P P #### [address] INR Coag (PPP) [Relative time] 2.0 {INR} Normal [facility] Comment on above: Result Comment: INR Therapeutic [...] 4.5 Performed By: #### P P #### [facility] [address] [place] [address] PT Coag (PPP) [Time] 22.5 s High 9.0-12.9 [facility] Comment on above: Performed By: #### P P #### [address] Complete Blood Count Auto Di ffon 07-21-2021 Basophils (Bld) [#/Vol] 0.1 10*3/uL Normal 0.0-0.2 [facility] Comment on above: Result Comment: PERF ORMED BY: [place] [address] PATHOLOGIST COMPUTER TECHNOLOGY TRAINER TO [place] M.D. Performed By: #### H EPATIC, CBC, LIPASE, BMP #### [address] Basophils/100 WBC (Bld) 0.6 % Normal . [facility] Comment on above: Performed By: #### H EPATIC, CBC, LIPASE, BMP #### [address] Eosinophils (Bld) [#/Vol] 0.4 10*3/uL Normal 0.0-0.45 [facility] Comment on above: Performed By: #### H EPATIC, CBC, LIPASE, BMP #### [address] Eosinophils/100 WBC (Bld) 4.3 % Normal . [facility] Comment on above: Performed By: #### H EPATIC, CBC, LIPASE, BMP #### [address] Erythrocyte distribution width (RBC) [Ratio] 13.7 % Normal 12.0-14.8 [facility] Comment on above: Performed By: #### H EPATIC, CBC, LIPASE, BMP #### [address] Hematocrit (Bld) [Volume fraction] 45.9 % Normal 38.8-50.0 [facility] Comment on above: Performed By: #### H EPATIC, CBC, LIPASE, BMP #### [address] Hemoglobin (Bld) [Mass/Vol] 15.4 g/dL Normal 13.0-17.0 [facility] Comment on above: Performed By: #### H EPATIC, CBC, LIPASE, BMP #### [address] Lymphocytes (Bld) [#/Vol] 2.9 10*3/uL Normal 1.00-4.8 [facility] Comment on above: Performed By: #### H EPATIC, CBC, LIPASE, BMP #### [address] Lymphocytes/100 WBC (Bld) 28.4 % Normal . [facility] Comment on above: Performed By: #### H EPATIC, CBC, LIPASE, BMP #### [facility] [address] MCH (RBC) [Entitic mass] 32.0 pg Normal 27.5-35.2 [facility] Comment on above: Performed By: #### H EPATIC, CBC, LIPASE, BMP #### [address] MCV (RBC) [Entitic vol] 95.2 fL Normal 83.5-101 [facility] Comment on above: Performed By: #### H EPATIC, CBC, LIPASE, BMP #### [address] Mean Corpuscular HGB Conc 33.6 g/dL Normal 32.5-35.6 [facility] Comment on above: Performed By: #### H EPATIC, CBC, LIPASE, BMP #### [place] [address] [place] Monocytes (Bld) [#/Vol] 0.7 10*3/uL Normal 0.0-0.8 [facility] Comment on above: Performed By: #### H EPATIC, CBC, LIPASE, BMP #### [place] [address] [place] Monocytes/100 WBC (Bld) 6.7 % Normal . [facility] Comment on above: Performed By: #### H EPATIC, CBC, LIPASE, BMP #### [place] [address] [place] Neutrophils (Bld) [#/Vol] 6.0 10*3/uL Normal 1.8-7.7 [facility] Comment on above: Performed By: #### H EPATIC, CBC, LIPASE, BMP #### [address] Neutrophils/100 WBC (Bld) 60.0 % Normal . [facility] Comment on above: Performed By: #### H EPATIC, CBC, LIPASE, BMP #### [address] Nucleated RBC/100 WBC (Bld) [Ratio] 0.1 % Normal 0-0.5 [facility] Comment on above: Performed By: #### H EPATIC, CBC, LIPASE, BMP #### [address] Platelet mean volume (Bld) [Entitic vol] 8.7 fL Normal 6.6-10.1 [facility] Comment on above: Performed By: #### H EPATIC, CBC, LIPASE, BMP #### [address] Platelets (Bld) [#/Vol] 215 10*3/uL Normal 150-450 [facility] Comment on above: Performed By: #### H EPATIC, CBC, LIPASE, BMP #### [address] RBC (Bld) [#/Vol] 4.83 10*6/uL Normal 3.90-5.60 [facility] Comment on above: Performed By: #### H EPATIC, CBC, LIPASE, BMP #### [address] WBC (Bld) [#/Vol] 10.0 10*3/uL Normal 4.5-11.0 [facility] Comment on above: Performed By: #### H EPATIC, CBC, LIPASE, BMP #### [address] Glucose Poct Glucometerson 1 Commemt1 Glu2: Cleaned Meter Normal [facility] Comment on above: Result Comment: PERF ORMED BY: [place] [address] PATHOLOGIST COMPUTER TECHNOLOGY TRAINER TO [place] M.D. Performed By: #### H EPATIC, CBC, LIPASE, BMP #### [address] Glucose [Mass/Vol] 267 mg/dL Normal [facility] Comment on above: Result Comment: [place] Glucose Reference Range is dependent on time and content of last meal. Glucose of more than 200 mg/dL in a nonstressed, ambulatory subject supports the diagnosis of Diabetes Mellitus. Performed By: #### H EPATIC, CBC, LIPASE, BMP #### [address] Commemt1 Glu2: Cleaned Meter [facility] Comment on above: Result Comment: PERF ORMED BY: [place] [address] PATHOLOGIST COMPUTER TECHNOLOGY TRAINER TO [place] M.D. Performed By: #### H EPATIC, CBC, LIPASE, BMP #### [address] Glucose [Mass/Vol] 252 mg/dL Normal [facility] Comment on above: Result Comment: [place] [facility] Glucose Reference Range is dependent on time and content of last meal. Glucose of more than 200 mg/dL in a nonstressed, ambulatory subject supports the diagnosis of Diabetes Mellitus. Performed By: #### H EPATIC, CBC, LIPASE, BMP #### [address] Commemt1 Glu2: Cleaned Meter [facility] Comment on above: Result Comment: PERF ORMED BY: [place] [address] PATHOLOGIST COMPUTER TECHNOLOGY TRAINER TO [place] M.D. Performed By: #### H EPATIC, CBC, LIPASE, BMP #### [address] Glucose [Mass/Vol] 100 mg/dL Normal [facility] Comment on above: Result Comment: [place] Glucose Reference Range is dependent on time and content of last meal. Glucose of more than 200 mg/dL in a nonstressed, ambulatory subject supports the diagnosis of Diabetes Mellitus. Performed By: #### H EPATIC, CBC, LIPASE, BMP #### [address] Glucose [Mass/Vol] 140 mg/dL Normal [facility] Comment on above: Result Comment: [facility] [place] Glucose Reference Range is dependent on time and content of last meal. Glucose of more than 200 mg/dL in a nonstressed, ambulatory subject supports the diagnosis of Diabetes Mellitus. PERFORMED BY: [place] [address] PATHOLOGIST COMPUTER TECHNOLOGY TRAINER TO [place] M.D. Performed By: #### H EPATIC, CBC, LIPASE, BMP #### [address] Hepatic Panelon 07-21-2021 Albumin [Mass/Vol] 3.5 g/dL Normal 3.2-5.5 [facility] Comment on above: Performed By: #### H EPATIC, CBC, LIPASE, BMP #### [address] Albumin/Globulin [Mass ratio] 1.1 {ratio} Normal [facility] Comment on above: Performed By: #### H EPATIC, CBC, LIPASE, BMP #### [address] ALP [Catalytic activity/Vol] 115 U/L High 32- [facility] Comment on above: Performed By: #### H EPATIC, CBC, LIPASE, BMP #### [address] ALT [Catalytic activity/Vol] 30 U/L Normal 10- [facility] Comment on above: Performed By: #### H EPATIC, CBC, LIPASE, BMP #### [address] AST [Catalytic activity/Vol] 19 U/L Normal 10- [facility] Comment on above: Performed By: #### H EPATIC, CBC, LIPASE, BMP #### [address] Bilirubin [Mass/Vol] 0.7 mg/dL Normal 0.3-1.2 [facility] Comment on above: Performed By: #### H EPATIC, CBC, LIPASE, BMP #### [facility] [address] Bilirubin,Indirect Not performed Normal [facility] Comment on above: Performed By: #### H EPATIC, CBC, LIPASE, BMP #### [facility] [address] Bilirubin.indirect [Mass/Vol] mg/dL Normal 0.0-0.4 [facility] Comment on above: Performed By: #### H EPATIC, CBC, LIPASE, BMP #### [facility] [address] Globulin (S) [Mass/Vol] 3.2 g/dL Normal [facility] Comment on above: Performed By: #### H EPATIC, CBC, LIPASE, BMP #### [address] Protein [Mass/Vol] 6.7 g/dL Normal 6.1-7.9 [facility] Comment on above: Performed By: #### H EPATIC, CBC, LIPASE, BMP #### [address] Lactic Acidon 07-21-2021 Lactate [Moles/Vol] 1.2 mmol/L Normal 0.5-2.2 [facility] Comment on above: Result Comment: PERF ORMED BY: [place] [address] PATHOLOGIST COMPUTER TECHNOLOGY TRAINER TO [place] M.D. Performed By: #### L ACTIC #### [facility] [address] [place] [address] Lipaseon 07-21-2021 Lipase [Catalytic activity/Vol] 43.0 U/L Normal 22-51 [facility] Comment on above: Result Comment: PERF ORMED BY: [place] [address] PATHOLOGIST COMPUTER TECHNOLOGY TRAINER TO [place] M.D. Performed By: #### H EPATIC, CBC, LIPASE, BMP #### [facility] [address] Tamera Ag Negativeon 07-21-20 Tamera Ag Negative Negative Normal Negative [facility] Comment on above: Result Comment: This is a duplicate Tamera SARS Antigen (GIOVANNA) result to be used for statistical tracking purpose only. PERFORMED BY: [place] [address] PATHOLOGIST COMPUTER TECHNOLOGY TRAINER TO [place] M.D. Performed By: #### C OVID-19 TAMERA, SOFIANEG, COVID 19 [facility] #### [facility] [address] Urinalysison 07-21-2021 Appearance (U) Clear Normal Clear [facility] Comment on above: Order Comment: Name Collection Type:: Clean-Voided Midstream Performed By: #### U A #### [address] Bilirubin,Urine Negative Normal Negative [facility] Comment on above: Order Comment: Name Collection Type:: Clean-Voided Midstream Performed By: #### U A #### [address] Color (U) Yellow Normal Yellow [facility] Comment on above: Order Comment: Name Collection Type:: Clean-Voided Midstream Performed By: #### U A #### [facility] [address] [place] [address] Glucose Ql (U) >=1000 High Normal [facility] Comment on above: Order Comment: Name Collection Type:: Clean-Voided Midstream Performed By: #### U A #### [facility] [address] [place] [address] [place] Ketones Ql (U) Negative Normal Negative [facility] Comment on above: Order Comment: Name Collection Type:: Clean-Voided Midstream Performed By: #### U A #### [facility] [address] [place] [address] Leukocyte esterase Test strip Ql (U) Negative Normal Negative [facility] Comment on above: Order Comment: Name Collection Type:: Clean-Voided Midstream Performed By: #### U A #### [facility] [address] [place] [address] [place] Nitrite,Urine Negative Normal Negative [facility] Comment on above: Order Comment: Name Collection Type:: Clean-Voided Midstream Performed By: #### U A #### [address] Occult Blood,Urine Negative Normal Negative [facility] Comment on above: Order Comment: Name Collection Type:: Clean-Voided Midstream Result Comment: PERF ORMED BY: [place] [address] PATHOLOGIST COMPUTER TECHNOLOGY TRAINER TO [place] M.D. Performed By: #### U A #### [address] pH (U) 6.5 [pH] Normal 5.0-9.0 [facility] Comment on above: Order Comment: Name Collection Type:: Clean-Voided Midstream Performed By: #### U A #### [address] Protein,Urine Negative Normal Negative [facility] Comment on above: Order Comment: Name Collection Type:: Clean-Voided Midstream Performed By: #### U A #### [address] Specificy [place],Urine 1.026 Normal 1.001-1.030 [facility] Comment on above: Order Comment: Name Collection Type:: Clean-Voided Midstream Performed By: #### U A #### [address] Urobilinogen,Urine Normal Normal Normal [facility] Comment on above: Order Comment: Name Collection Type:: Clean-Voided Midstream Performed By: #### U A #### [address] General Surgery Office/Clini c Noteon 05-31-2021 [...] hematuria Head injury Heart disease History of watermelon inspector anticoagulant use History of stroke Hyperlipidemia Hypertension [...] Pantoprazole [address] Tab Potassium Chloride (Zut-Dfcm-Njf M20) 20 mEq oral tablet, extended release [...] 30 days ago (more content not included)... [facility] Comment on above: Result Comment: Elec tronically Signed By: NOE GEORGE, Andry Das\.br\Date and Time Signed: 05/31/21 11:26 EDT Ambulatory Clinical Summaryo 05-29-2021 Ambulatory Clinical Summary {[id number]}CD:6143 68 [facility] Outside Colonoscopyon 2020 Outside Colonoscopy [id number]#1.00CD:127 [facility] Pathology Noteon 05-25-2021 Pathology Note [id number]#1.00CD:127 [facility] Provider Letter FTon 05-23 Provider Letter [facility] May 23, 2021 Luis Mccormick, [facility] [place] [address] Re: ANDRY PIERRE Date of : 1960 Thank you for your referral of Andry Pierre who was seen on consultation on May 18, 2021, for Right upper quadrant pain and rectal bleeding, nausea, vomiting, and constipation. I have enclosed my consultation notes for your review. I will be happy to follow Andry should his symptoms persist. Sincerely, Andry Adames MD General Surgery [facility] Consent for Procedure/Surger yon 05-21-2021 Consent for Procedure/Surgery [id number]#1.00CD:127 [facility] Immunization Recordson 05-21 Immunization Records [id number]#1.00CD:127 Normal Fidencio [facility] Ambulatory Clinical Summaryo n 05-18-2021 Ambulatory Clinical Summary {[id number]}CD:6143 68 Normal Nicolas [facility] General Surgery Office/Clini c Noteon 05-18-2021 General Surgery Office/Clinic Note HPI Staff Est patient , RUQ pain x 8 wks , u/s done 05/03/21 @ [facility]. recent rectal bleeding currently having nausea , [...] in remote past and was hospitalized in [place] with a torn muscle; only abdominal operation RIHR x 3; recent CT scan of abdomen wnl; GB US with possible small stones adherent to fundus of gallbladder, no wall thickening or ductal dilation; normal HIDA scan; all studies personally reviewed; no h/o jaundice or pancreatitis; poor po intake, with mild recent wt loss; patient reports that he had a colonoscopy at [facility] within the last 5 years, but [...] hematuria Head injury Heart disease History of watermelon inspector anticoagulant use History of stroke Hyperlipidemia Hypertension Liver cancer Nausea and vomiting Neck pain Nocturia Parkinsons Retention of urine seizures Seizures Urge incontinence Urinary retention Urinary urgency Historical Arthritis Procedure/Surgical History Implantation of electronic stimulator in 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 Normal [facility] Comment on above: Result Comment: Elec tronically Signed By: NOE GEORGE, Andry Daniel\Date and Time Signed: 05/18/21 15:05 EDT RAD - CT Reporton 05-17-2021 RAD - CT Report [id number]#1.00CD:127 Normal [facility] RAD - MISCon 05-17-2021 RAD - MISC [id number]#1.00CD:127 Normal [facility] RAD - MISC [id number]#1.00CD:127 Normal [facility] RAD - Ultrasound Reporton RAD - Ultrasound Report [id number]#1.00CD:127 Normal [facility] RAD - Ultrasound Reporton RAD - Ultrasound Report [id number]#1.00CD:127 Normal [facility] Physician Referralon 021 Physician Referral [id number]#1.00CD:127 [facility] Provider Letter [facility] Provider Letter [facility] March 23, 2021 Luis Mccormick, [address] [facility] [address] [place] [address] [place] [address] Re: ANDRY PIERRE Date of : 1960 Thank you for your referral of Andry Pierre who was seen on consultation of excision of lump on the neck on March 14, 2021. I have enclosed my consultation notes for your review. I will be happy to follow Andry should his symptoms persist. Sincerely, Andry Adames MD General Surgery [facility] Ambulatory Clinical Summaryo n 03-14-2021 Ambulatory Clinical Summary {[id number]}CD:6143 68 [facility] Patient Educationon 03-14-20 21 Patient Education [...] your health care provider or diet and ancillary specialist (dietitian). This may include: ? Eating [...] U.S. Department of Health and Human Services: www.[facility].gov ? Centers for Disease Control and Prevention [...] calories than (more content not included)... Normal [facility] Physician Referralon 021 Physician Referral [id number]#1.00CD:127 [facility] Patient Correspondenceon Patient Correspondence [id number]#1.00CD:127 [facility] Reminderson 01-10-2021 Reminders - From: Rosa [...] sign. LR Letter mailed regular/certified letter today. [facility] Provider Letteron 01-09-2021 Provider Letter (Inserted Image. Pina ble to display) January 09, 2021 ANDRY PIERRE [address] [place] [address] ANDYR PIERRE 1960 SENT VIA CERTIFIED AND REGULAR MAIL Dear Mr. Pierre, This letter is to inform you the providers of [facility], [facility] will no longer be responsible for your routine medical care due to your noncompliance. Emergency care only will be provided for the thirty (30) days following this letter. During this time period we suggest that you find another physician for your medical needs. A listing of area physicians can be found on [facility]'s website at [email or web address] or you may contact your health plan. We will be glad to forward your records to your new physician as long as we receive a signed release of records form. Sincerely, Larry Barfield M.D., F.A.C.S. [facility] [address] [place] [address]. [place] [address] [facility] Patient Correspondenceon Patient Correspondence [id number]:127 [facility] Provider Letter Office-[facility] 11-24-2020 Provider Letter Office-[facility] November 24, 2020 ANDRY PIERRE [address] [place] [address] ANDRY PIERRE 1960 SENT VIA CERTIFIED AND [...] Larry Barfield M.D., F.A.C.S. [facility] [place] [address], [place] [address] [facility] Reminderson 08-02-2020 Reminders - From: Radha King MA To: EU - Clinical; Sent: 07/19/2020 14:09:34 EDT Show up: 08/02/2020 14:09:00 EDT Subject: fish/cytol Reminder/Recall fish/cytol done 07/19/2020 done, sent msg to prw to review results [facility] Outside Cardiovascularon Outside Cardiovascular [id number]#1.00CD:127 Normal [facility] Outside Radiologyon 08-01-20 20 Outside Radiology [id number]#1.00CD:127 Normal [facility] Outside Radiology [id number]#1.00CD:127 [facility] Progress Note-Physicianon Progress Note-Physician [id number]#1.00CD:127 Normal [facility] Urology Office/Clinic Noteon 07-25-2020 Urology Office/Clinic Note Chief Complaint New Pt. HPI Staff New Pt. [facility] on 07/10/2020 due to leaking around catheter. US of kidneys done 11/17/2019. CT SCAN done 07/04/2020. Pt. states after having a Ct scan Pt. was not able to urinate and had catheter placed. Pt. does not have a history of urine retention. 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 Pt. states by a Doctor in [place] told Pt. had prostates cancer. Pt. states no biopsy was done, just a blood test. PSA was 1.39 done 07/07/20. Cath was removed at [facility] this morning. Dysuria: denies pain or burning Incomplete bladder emptying: yes pt had cath for 2 weeks placed by [facility], cath was removed this morning at [facility] Hematuria: pt states he had visible blood [...] last encounter. Reviewed CT scan and [facility] notes Review of Systems PHQ Score [...] of urine, unspecified) Patient reported to [facility] for leaking around catheter on 07/10/20 [...] contributing t (more content not included)... Normal [facility] Comment on above: Result Comment: Elec tronically Signed By: Yon GEORGE, Lefty Jamil\.br\Date and Time Signed: 07/25/20 12:11 EDT Urology Office/Clinic Note Chief Complaint [facility] 07/10/2020 HPI Staff [facility] on 07/10/2020 due to leaking around catheter. US of kidneys done 11/17/2019. Pt. states after having a Ct scan Pt. was not able to urinate and had catheter placed. Pt. does not have a history of urine retention. 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 Pt. states by a Doctor in [place] told Pt. had prostates cancer. Pt. states [...] abdominal pain. History of Present Illness Reviewed [employer] paper works. There have been no associated [...] of urine (R33.9: Retention of urine, unspecified) [employer] is here for urinary retention that started [...] prostate cancer 3yrs. ago by a in [place]. Pt. states that there was never a [...] urine fo (more content not included)... Normal [facility] Comment on above: Result Comment: Elec tronically Signed By: Yon GEORGE, Lefty Jamil\.br\Date and Time Signed: 07/25/20 11:44 EDT Lab Reportson 07-24-2020 Lab Reports [id number]:127 Normal [facility] UroVysion Fish and Urine Cyt o (P4 Labs)on 07-24-2020 UVFISH & UC Diagnosis Info Invalid Interpretation Code [facility] Comment on above: Result Comment: A:Ur [...] on: 07/24/2020 10:42:51 Performed By: #### 1 [id number] ####[facility] [address] [place] [address] RAD - CT Reporton 07-21-[address] RAD - CT Report [id number]:127 Normal [facility] ED Note-Physicianon 07-20-20 ED Note-Physician [id number]:127 Normal [facility] Formson 07-20-2020 Forms [id number]:127 [facility] Ambulatory Clinical Summaryo n 07-19-2020 Ambulatory Clinical Summary {[id number]}CD:6143 68 [facility] Ambulatory Clinical Summary {[id number]}CD:6143 68 [facility] Auth for Release of Medical Recordson 07-19-2020 Auth for Release of Medical Records [id number]:127 Normal [facility] Patient Educationon 10-14-20 20 Patient Education [...] Document Reviewed: 12/14/2012 ExitCare? Patient Information ?2013 [employer]. [facility] Patient Education [facility] Acute Urinary Retention, Male You have [...] your urine. Then you and your personal security specialist can decide at your earliest convenience how [...] to a urinary tract infection. Only take gige-xmn-jyozeys or prescription medicines for pain, discomfort, or fever as directed by your caregiver. SEEK IMMEDIATE MEDICAL CARE IF: You develop chills, fever, or show signs of generalized illness that occurs prior to seeing your caregiver. Document Released: 12/29/2001 Document Revised: 12/14/2012 Document Reviewed: 09/13/2009 ExitCare? Patient Information ?2014 [employer]. [facility] Provider [facility] Luis Mccormick [address] [place] [address] Re: ANDRY PIERRE Date of : 1960 [...] based on PSA alone per pt in [facility]. Equally confusing is the fact that [...] a remote history of prostate cancer in [facility] by a outside urologist without a [...] to determine his PSA's were done in [facility]. I began suspecting the patient was [...] impression of (more content not included)... Normal [facility] RAD - CT Reporton 07-19-[address] - [address] Report [id number]:127 Normal [facility] UroVysion Fish and Urine Cyt o ([facility]4 Labs)on 07-19-2020 [facility] Method of Extraction Voided Normal [facility] Comment on above: Performed By: #### 1 [id number] ####[facility] [id number] [place] [address] [facility] Number of Jars 1 Invalid Interpretation Code [facility] Comment on above: Performed By: #### 1 [id number] ####[facility] [address] [place] [address] [facility] Specimen Urine Normal [facility] Comment on above: Performed By: #### 1 [id number] ####[facility] [address] [place] [address] [facility] Type of Service Technical Only Normal [facility] Comment on above: Performed By: #### 1 [id number] ####[facility] [address] [place] [address] Vital Signs Date Time Vital Sign Value Performing Clinician Facility 01-21-2022 07:23-0400 Body height 182.9 cm Pacc 3 Work Phone: [facility] 01-21-2022 07:23-0400 Body temperature 97.2 [degF] Pacc 3 Work Phone: [facility] 01-21-2022 07:23-0400 Body weight 140.21 kg Pacc 3 Work Phone: [facility] 01-21-2022 07:23-0400 Diastolic blood pressure 84 mm[Hg] Pacc 3 Work Phone: [facility] 01-21-2022 07:23-0400 Heart rate 57 /min Pacc 3 Work Phone: [facility] 01-21-2022 07:23-0400 SaO2% (BldA) [Mass fraction] 99 % Pacc 3 Work Phone: [facility] 01-21-2022 07:23-0400 Systolic blood pressure 134 mm[Hg] Pacc 3 Work Phone: [facility] 11-13-2021 12:20-0500 Body height 182.88 cm Sanjay Dooley Other [facility] Other 11-13-2021 12:20-0500 Body mass index (BMI) [Ratio] 42.04 kg/m2 Sanjay WiNetworkstena Other [facility] Other 11-13-2021 12:20-0500 Body temperature 96.2 [degF] Sanjay Dooley Other [facility] Other 11-13-2021 12:20-0500 Body weight 140.62 kg Sanjay Laroses Other [facility] Other 11-13-2021 12:20-0500 Diastolic blood pressure 60 mm[Hg] Sanjay Laroses Other [facility] Other 11-13-2021 12:20-0500 Respiratory rate 20 /min Sanjay Laroses Other [facility] Other 11-13-2021 12:20-0500 SaO2% (BldA) [Mass fraction] 96 % Sanjay Dooley Other [facility] Other 11-13-2021 12:20-0500 Systolic blood pressure 92 mm[Hg] Sanjay Dooley Other [facility] Other Encounters Encounter Date Encounter Type Care Provider Facility Start: 09-19-2023 End: 09-20-2023 ambulatory LUIS MCCORMICK Facility:[facility] Start: 09-12-2023 Telephone encounter Shane bowling PA-C Work Phone: [facility] Comment on above: DBS problem Start: 08-19-2023 End: 08-19-2023 ambulatory [facility] Start: 08-11-2023 End: 08-12-2023 ambulatory Ramon Mendiola MD Facility:[facility] Start: 07-17-2023 End: 07-18[facility] Start: 07-07-2023 Telephone encounter Glenn Rose MD Work Phone: [facility] Start: 05-21-2023 End: 05-21-2023 ambulatory [facility] Start: 02-20-2023 End: 02-21-2023 [facility] Start: 02-20-2023 End: 02-20-2023 ambulatory [facility] Start: 02-03-2023 End: 03-05-2023 ambulatory H FASTAN Facility:[facility] Start: 01-17-2023 End: 01-17-2023 ambulatory SOFYA [facility] Start: 01-09-2023 End: 01-09-2023 ambulatory LEMUEL [facility] Start: 01-07-2023 End: 01-08-[address] LUIS MCCORMICK . Facility:[facility] Start: 01-06-2023 End: 01-06-2023 ambulatory [facility] Start: 01-06-2023 End: 01-31-2023 ambulatory H MACO Facility:[facility] Start: 12-04-2022 End: 01-03-2023 ambulatory CARMICHAEL H FAWWAD Facility:[facility] Start: 11-06-2022 End: 12-04-2022 ambulatory CARMICHAEL H FAWWAD Facility:[facility] Start: 10-07-2022 End: 11-06-2022 ambulatory CARMICHAEL H JAMARWVERONICA Facility:[facility] Start: 09-05-2022 End: 10-06-2022 ambulatory SHAIKH Brenda DEWEY Facility:[facility] Start: 08-06-2022 End: 09-04-[address] LUIS MCCORMICK . Facility:[facility] Start: 07-10-2022 Encounter for preprocedural laboratory examination LEMUEL RODRIGUEZ [facility] Start: 07-08-2022 End: 07-09-2022 ambulatory LEMUEL RODRIGUEZ [...] encounter Glenn Rose MD Work Phone: [facility] Comment on above: Results Start: 01-21-2022 End: 01-21-2022 ambulatory Pac Main 3 Work Phone: Pre Anesthesia Comment on above: Pre-op evaluation (P rimary Dx); Essential tremor; Type 2 diabetes mellitus with other specified complication, with long-term current use of insulin ([facility]); Obesity, Class III, BMI >= 40; Essential hypertension; Difficult intravenous access; Acute, but ill-defined, cerebrovascular disease; Obstructive sleep apnea syndrome; Chronic obstructive pulmonary disease, unspecified COPD type ([facility]); Tobacco use; Tracheal stenosis; Gastroesophageal reflux disease, unspecified whether esophagitis present; Pulmonary embolus with infarction ([facility]); Congestive heart failure, unspecified HF chronicity, unspecified heart failure type ([facility]); Stage 3 chronic kidney disease, unspecified whether stage 3a or 3b CKD ([facility]) 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) (Primary Dx) Start: 01-21-2022 End: 01-21-2022 Nursing evaluation of patient and report Kerwin Brito RN Work Phone: [facility] Comment on above: Essential tremor (Pr imary Dx) Start: 01-21-2022 End: 01-21-2022 Patient encounter procedure Glenn Rose MD Work Phone: [facility] Comment on above: Essential tremor (Pr imary Dx) Start: 01-21-2022 End: 01-21-2022 Admission to establishment Pacc Main 3 Work Phone: [facility] Start: 01-21-2022 End: 01-21-2022 Preprocedural examination done Pac Main 3 Work Phone: Pre Anesthesia Start: 01-04-2022 Telephone encounter Harris chowdhury MD Work Phone: [facility] Comment on above: DBS MARIA G message Start: 11-26-2021 End: 11-26-2021 ambulatory Aziz Bakhous Other [facility] Other Start: 11-26-2021 Telephone encounter Aziz Bakhous [facility] Start: 11-13-2021 End: 11-13-2021 ambulatory Aziz Bakhous Other [facility] Other Start: 11-13-2021 Office outpatient ne w 45 minutes Aziz Bakhous [facility] [place] Start: 11-13-2021 Telephone encounter Aziz Bakhous [facility] Start: 07-21-2021 End: 07-27-2021 ambulatory [facility] Facility:[facility] Procedures Date Procedure Procedure Detail Performing Clinician Start: 02-20-[address] CARITO MCCORMICK . Comment on above: Performed By: #### A 1C #### [facility] [address] [place] [address] Dr. Miah Buck Start: 07-26-2021 Resection of Gallbla dder, Percutaneous Endoscopic Approach DAVON OLIVIER Start: 07-24-2021 DILATION OF COMMON H EPATIC DUCT, ENDO AMY T SANDRITA Plan of Treatment Date Care Activity Detail Author Start: 02-21-2028 Prostate Cancer Screening Discussion Prostate Cancer Screening Discussion [facility] Start: 2025 Pneumococcal vaccination Pneumococcal Vaccine (3 - PPSV23 or PCV20) [facility] Start: 10-27-2023 Serum Creatinine Serum Creatinine Cl [facility] Start: 06-06-2023 Covid-19 Vaccine () Covid-19 Vaccine () [facility] Start: 06-06-2023 Influenza vaccination Influenza Vacc ine (#1) [facility] Start: 01-21-2023 HEMOGLOBIN/HEMATOCRIT HEMOGLOBIN/HEM ATOCRIT [facility] Start: 01-21-2023 SERUM CREATININE SERUM CREATININE Cl [facility] Start: 11-28-2022 SERUM CREATININE SERUM CREATININE Cl [facility] Start: 06-06-2022 Influenza vaccination INFLUENZA (Sea son Ended) [facility] Start: 04-22-2022 Hemoglobin A1c/Hemoglobin.total in Blood HBA1C [facility] Start: 01-20-2022 End: 03-22-2022 Hemoglobin A1c/Hemoglobin.total in Blood HGB A1C Lab Routine Type 2 diabetes mellitus with other specified complication, with long-term current use of insulin (HCC) Pre-op evaluation Expected: 01/20/2022, Expires: 03/22/2022 [facility] Work Phone: Comment on above: Expected: 01/20/2022 , Expires: 03/22/2022 Start: 02-03-2021 COVID-19 VACCINE (2 - Booster for Mary Ellen series) COVID-19 VACCINE (2 - Booster for Mary Ellen series) [facility] Start: 2020 Hepatitis B Vaccine (1 of 3 - Risk 3-dose series) Hepatitis B Vaccine (1 of 3 - Risk 3-dose series) [facility] Start: 2020 RSV Vaccine (1 - 1-d ose 60+ series) RSV Vaccine (1 - 1-dose 60+ series) [facility] Start: 12-12-2018 Hemoglobin A1c/Hemoglobin.total in Blood HBA1C [facility] Start: 2015 PROSTATE CANCER SCREENING DISCUSSION PROSTATE CANCER SCREENING DISCUSSION [facility] Start: 2010 SHINGRIX VACCINE (1 of 2) SHINGRIX VACCINE (1 of 2) [facility] Start: 2005 COLOGUARD (FIT-DNA) COLOGUARD (FIT-D NA) [facility] Start: 2005 Colonoscopy COLONOSCOPY [facility] Start: 2005 COLORECTAL CANCER SCREENING COLORECTAL CANCER SCREENING [facility] Start: [address] COLONOGRAPHY [facility] Start: 2005 FECAL OCCULT BLOOD FECAL OCCULT BLOO D [facility] Start: 02-16-2006 SIGMOIDOSCOPY SIGMOIDOSCOPY [facility] Start: 1990 Zoledronic acid therapy Alpha- 1 Antitrypsin Deficiency Screening [facility] Start: 1979 Urine microalbumin profile [facility] Start: 1978 ANNUAL PCP TEAM WOOL TAMPER HAKEEM DISEASE VISIT ANNUAL PCP TEAM CHRONIC DISEASE VISIT [facility] Start: 1978 BP CONTROLLED (<130/80) BP CONTROLLE D (<130/80) [facility] Start: 1978 Hepatitis B surface antibody level LDL CHOLESTEROL [facility] Start: 1978 HEPATITIS C SCREENING HEPATITIS C SC REENING [facility] Start: 1978 HIV SCREENING HIV SCREENING [facility] Start: 1970 3 comp foot exam completed DIABETIC FOOT EXAM [facility] Start: 1970 Hepatitis B screening URINE AL BUMIN:CREATININE RATIO [facility] Start: 1970 Hepatitis C antibody , confirmatory test DILATED RETINAL EXAM [facility] Hemoglobin A1c/Hemoglobin.total in Blood HGB A1C Lab Routine Type 2 diabetes mellitus with other specified complication, with long-term current use of insulin (HCC) Pre-op evaluation 01/21/2022 9:30 AM EDT [facility] Work Phone: [facility] R Lab Routine 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) Ordered: 01/21/2022 [facility] Work Phone: Comment on above: [facility]: [facility] Immunization Date Immunization Notes Care Provider Jamar ingram 07-19-2021 influenza virus vacc ine, unspecified formulation Glenn Rose MD Work Phone: [facility] 07-07-2020 Influenza, injectabl e, Madin [place] Canine Kidney, preservative free, quadrivalent Harris Faustin MD Work Phone: [facility] 08-01-2019 influenza virus vacc ine, unspecified formulation Harris Faustin MD Work Phone: [facility] 08-10-2018 influenza, injectabl e, quadrivalent, preservative free Harris Faustin MD Work Phone: [facility] 07-24-2018 Influenza, injectabl e, Madin [place] Canine Kidney, preservative free, quadrivalent Harris Faustin MD Work Phone: [facility] 09-10-2017 influenza virus vacc ine, unspecified formulation Harris Faustin MD Work Phone: [facility] 08-11-2017 pneumococcal polysaccharide vaccine, 23 valent Harris Faustin MD Work Phone: [facility] 08-05-2016 influenza virus vacc ine, unspecified formulation Harris Faustin MD Work Phone: [facility] 11-13-2015 pneumococcal conjuga te vaccine, 13 valent Harris Faustin MD Work Phone: [facility] 07-18-2015 influenza virus vacc ine, whole virus Harris Faustin MD Work Phone: [facility] 07-06-2015 influenza, high dose seasonal, preservative-free Harris Faustin MD Work Phone: [facility] 09-13-2014 influenza, injectabl e, quadrivalent, preservative free Harris Faustin MD Work Phone: [facility] 06-25-2013 influenza, seasonal, injectable, preservative free Harris Faustin MD Work Phone: [facility] 06-17-2012 influenza, seasonal, injectable Harris Faustin MD Work Phone: [facility] 09-11-2010 pneumococcal polysaccharide vaccine, 23 valent Harris Faustin MD Work Phone: [facility] Payers Date Payer Category Payer Medicaid 2021 Medicare [id number] 2021 Medicare [id number] 2021 Unknown [id number] 2019 Unknown ANTHSUNDAY [place] [employer] ANTHSUNDAY [facility] [id number] 2019-Present [phone] [facility] [id number] [place] [address] [facility] [id number] 2019 Medicaid [id number] 1960 Unknown [id number] 2.16.840.1.080464.3.579.2.6 47 1960 Unknown [id number] 2.16.840.1.836678.3.579.2.5 93 1960 Unknown [id number] 2.16.840.1.454565.3.579.2.5 93 1960 Unknown [id number] 2.16.840.1.438276.3.579.2.5 93 1960 Unknown [id number] 2.16.840.1.027234.3.579.2.5 93 1960 Unknown [id number] 2.16.840.1.519621.3.579.2.5 93 1960 Unknown [id number] 2.16.840.1.310018.3.579.2.5 93 1960 Unknown [id number] 2.16.840.1.767535.3.579.2.5 93 1960 Unknown [id number] 2.16.840.1.388273.3.579.2.5 93 1960 Unknown [id number] 2.16.840.1.341483.3.579.2.5 93 1960 Unknown [id number] 2.16.840.1.575237.3.579.2.5 93 1960 Unknown [id number] 2.16.840.1.221856.3.579.2.5 93 1960 Unknown [id number] 2.16.840.1.655253.3.579.2.5 93 1960 Unknown [id number] 2.16.840.1.149169.3.579.2.5 93 1960 Unknown [id number] 2.16.840.1.607730.3.579.2.5 93 1960 Unknown [id number] 2.16.840.1.208871.3.579.2.5 93 1960 Unknown [id number] 2.16.840.1.130585.3.579.2.5 93 1960 Unknown [id number] 2.16.840.1.853427.3.579.2.5 93 1960 Unknown [id number] 2.16.840.1.730285.3.579.2.5 93 1960 Unknown [id number] 2.16.840.1.131729.3.579.2.5 93 1960 Unknown [id number] 2.16.840.1.766244.3.579.2.1 1959 Private Health Insurance [id number] Unknown [id number] 2.16.840.1.542210.19 Social History Date Type Detail Facility Start: 05-31-2013 End: 01-21-2022 Tobacco smoking status NHIS Never smoked tobacco [facility] Work Phone: Start: 05-31-2013 Tobacco use and exposure Former smokeless tobacco user [facility] Work Phone: End: 09-17-2015 History of tobacco use Chews Tobacco [facility] Work Phone: Start: 06-15-2021 End: 01-21-2022 Alcohol intake Current non-drinker of alcohol (finding) [facility] Start: 01-04-2020 History SDOH Alcohol Frequency 1 [facility] Start: 01-04-2020 [facility] Start: 1960 Sex Assigned At Male [facility] Start: 05-31-2013 End: 01-21-2022 Tobacco use and exposure User of smokeless tobacco [facility] Work Phone: Start: 01-11-2022 End: 01-21-2022 Exposure to SARS-CoV-2 (event) Not sure [facility] Start: 01-04-2020 End: 09-10-2020 Sex Assigned At [facility] History of tobacco use Cigarette Smoker C [facility] Work Phone: Start: 01-04-2020 End: 09-10-2020 History of Social function [facility] How often to you hav e a drink containing alcohol? Never [facility] Average Number of Drinks Not on file [facility] Start: 01-03-2020 Gender identity Identifies as male gender (finding) [facility] Start: 01-03-2020 Sexual orientation Heterosexual (fin oneal) [facility] Medical Equipment Procedure Code Equipment Code Equipment Origin al Text Equipment Identifier Dates Ipg Activa Sc Db s Dual Extn - [id number] Start: 06-30-2013 Comment on above: Description: ACTIVA SC Multi-program Leonor rostimulator for deep Brain Stimulation Neurostimulator Activa Sc 0-10.5v 2-250hz 0-25.5ma 2.4inx2.2in .4in - [id number] Start: 07-24-2016 Neurostimulator Activa Sc 0-10.5v 2-250hz 0-25.5ma 2.4inx2.2in .4in - [id number] Start: 06-30-2019 Neurostimulator Activa Sc 0-10.5v 2-250hz 0-25.5ma 2.4inx2.2in .4in - [id number] Start: 01-30-2022 Clinical Notes 03-22-2021 to 09-19-2023 Telephone Encounter - Shane Parham PA-C - 09/12/2023 3:08 PM ESTTelephone Encounter - Rhianna Sena - 09/12/2023 2:41 PM Yossi Brito RN - 01/22/2022 9:14 AM EDT Note Date & Type Note Facility 09-19-2023 Note HNO ID: [id number] Author: Shane Parham PA-C Service: ? Author Type: Physician Bulk [employer] Specialist Type: Progress Notes Filed: 09/19/2023 4:39 PM Note Text: [facility] - FOLLOW UP EVALUATION Luis Mccormick MD [address] [facility] [place] [address] Dear Luis Mccormick MD: I had the [...] Row Office Visit from 09/19/2023 in [facility] PAT from 01/21/2022 in Pre Anesthesia [facility] [...] it Current Outpatient Medications Medication Sig Insulin [place], Disposable, (BD INSULIN PEN NEEDLE UF) 29 [...] at bedtime. c (more content not included)... [facility] 09-12-2023 Miscellaneous Notes spoke with pt today [...] 01/21/22 with SN documented in this encounter [facility] 08-19-2023 Note Patient here for 3 [...] All other systems reviewed and are negative. [facility] 08-19-2023 Note [facility] Reason for Consultation: [...] in the morning. Coumadin levels followed by [facility] allopurinol (Zyloprim) 100 mg tablet Take 100 mg by mouth 1 (one) time each day at the same time. amLODIPine (Norvasc) 5 mg tablet Take 1 tablet by mouth in the morning. aspirin 81 mg EC tablet Take 1 tablet by mouth in the morning. baclofen (Lioresal) 10 mg tablet TAKE 1/2-1 TABLET BY JUSTYN (more content not included)... [facility] 07-10-2023 Miscellaneous Notes Spoke with sales representative publications from Dr. Kumar's office, they report they [...] Rose's signature (tp). documented in this encounter [facility] 05-21-2023 Note [facility] Reason for Consultation: [...] in the morning. Coumadin levels followed by [facility] [DISCONTINUED] NIFEdipine XL (Procardia XL) 90 mg 24 hr tablet TAKE 1 TABLET BY MOUTH EVERY DAY 90 tablet 2 No current facility-administered medications on file prior to visit. ROS: Cardio Basic Cardiovascular Symptoms: no l (more content not included)... 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 No marked patient events he is on [...] in the morning. Coumadin levels followed by [facility] oxybutynin XL (Ditropan-XL) 10 mg 24 hr tablet Take 10 mg by mouth in the morning. No current facility-administered medications on file alia (more content not included)... [facility] 02-20-2023 Note Patient is here toda y [...] All other systems reviewed and are negative. [facility] 01-17-2023 Note Patient here for wou nd check s/p loop recorder implant 01/09/[address] Rodriguez[address] [facility] 04-14-2023 Note Cardiovascular Medic ine [facility] SUBJECTIVE Chief Complaint Patient presents with [...] Benign shuddering attacks CHF (congestive heart failure) ([facility]) Chronic deep vein thrombosis (DVT) of proximal vein of both lower extremities ([facility]) CKD (chronic kidney disease) Congenital heart disease COPD (chronic obstructive pulmonary disease) ([facility]) History of DVT (deep vein thrombosis) Diastolic dysfunction Difficult intravenous access Dyslipidemia Edema of lower extremity Elevated PSA Esophageal reflux Essential hypertension Hematuria, gross Hyperlipidemia Hypokalemia Low back pain BMI 45.0-49.9, adult ([facility]) Obstructive sleep apnea syndrome Other diseases of pharynx, not elsewhere classified(478.29) Parkinson's disease ([facility]) History of pulmonary embolus (PE) Recurrent major depression in partial remission ([facility]) SOB (shortness of breath) Subarachnoid bleed ([facility]) Tracheal stenosis Tremor Type 2 diabetes mellitus without complication ([facility]) Urge incontinence of urine Urinary tract infection without hematuria Volume overload Syncope and collapse 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 ([facility]) Past Medical History: Diagnosis Date Chronic kidney disease Diabetes mellitus ([facility]) Dyslipidemia Hypertension Obstructive sleep apnea Family History [...] in the morning. Coumadin levels followed by [facility], Disp: , Rfl: Physical Exam Constitutional: Appearance: Normal appearance. He is obese. HENT: Head: Normocephalic and atraumatic. Mouth/Throat: Mouth: Mucous membranes are moist. Pharynx: Oropharynx is clear. Eyes: Extraocular Movements: Extraocular movements intact. Pupils: Pupils are equal, round, and reactive to light. C (more content not included)... [facility] 01-09-2023 Note LOOP IMPLANT PROCEDU RE NOTE DATE OF PROCEDURE: 01/09/2023 PERFORMING PHYSICIAN: Dr. Lemuel Rodriguez SNAG GRINDER: Dr Lucy Bella (Primary) INDICATIONS FOR PROCEDURE: [...] the sternum on the left using the myBarrister tool. The loop recorder was then injected [...] the incision. Lemuel Rodriguez MD Cardiac Electrophysiology. [facility] 01-06-2023 Note [facility] Consul t Note [...] in the morning and at bedtime. HYDROcodone-acetaminophen ([place]) 5-325 mg tablet Take 1 tablet by [...] in the morning. Coumadin levels followed by [facility] No current facility-administered medications on file prior [...] no dry mouth, (more content not included)... [facility] 01-06-2023 Note Patient here for 6 m [...] All other systems reviewed and are negative. [facility] 01-06-2023 Note [facility] Consul [facility] Note Reason for Consultation: [...] for CAD. PMH: CAD, HTN, DM2, CKD, APM PSH: Past Surgical History: Procedure Laterality Date [...] in the morning and at bedtime. HYDROcodone-acetaminophen ([place]) 5-325 mg tablet Take 1 tablet by [...] in the morning. Coumadin levels followed by [facility] No current facility-administered medications on file prior [...] no dry mouth, (more content not included)... [facility] 01-24-2022 Miscellaneous Notes Spoke with patient, advised [...] Kerwin Brito RN documented in this encounter [facility] 01-22-2022 History of Present illness Narrative [...] By Kerwin Brito RN In Department: NEUROLOGICAL MU-ISM documented in this encounter [facility] 01-21-2022 History of Present illness Narrative [...] Glenn Rose MD documented in this encounter [facility] 01-21-2022 Instructions Reema Elizabeth PA-C - 01/21/2022 7:53 AM EDT PATIENT PREOPERATIVE INSTRUCTIONS Gelnn Rose MD has scheduled you for your procedure at this surgery center: [facility] [place] Scheduling Office: [phone] --[address] [place] [address]. Please read below carefully for your personalized [...] Procedures: - YOU MUST HAVE A RESPONSIBLE ADULT MANAGER TAKE YOU HOME. A CASTING WHEEL OPERATOR HELPER OR STEEL CHECKER CANNOT BE MADE A RESPONSIBLE ADULT MANAGER. - We recommend that a responsible person [...] call the Friday before. Your surgeon s marshmallow machine worker will tell you what time to call the office. - If you have not reached the departmental marshmallow machine worker by 5 P.M., call [phone] after 5 P.M. the day before your surgery. Please be aware that emergency situations arise, which may delay or change your surgical time. If this happens, we will notify you as soon as possible and regret any inconvenience. If you already have an Advance Directive, please fax a copy to [phone] or email to for it to be [...] Reema Elizabeth PA-C documented in this encounter [facility] 01-21-2022 History and physical note HISTORY [...] 40 Recurrent Major Depression in Partial Remission ([facility]) Difficult Intravenous Access Obstructive Sleep Apnea Syndrome Parkinson's Disease ([facility]) Copd (Chronic Obstructive Pulmonary Disease) ([facility]) Tobacco Use Chf (Congestive Heart Failure) ([facility]) Ckd (Chronic Kidney Disease) Subjective CHIEF COMPLAINT: [...] Benign shuddering attacks CHF (congestive heart failure) ([facility]) ? CKD (chronic kidney disease) 01/21/2022 COPD (chronic obstructive pulmonary disease) ([facility]) 01/21/2022 Depression recent hospitalization because of depression Difficult intravenous access 01/21/2022 DVT (deep venous thrombosis) ([facility]) 2000 multiple Esophageal reflux IDDM (insulin dependent diabetes mellitus) Kidney failure Lumbago Obstructive sleep apnea syndrome Other diseases of pharynx, not elsewhere classified(478.29) Parkinson's disease ([facility]) Tobacco use 01/21/2022 Tracheal stenosis Type II [...] +Tobacco chew use Cardiovascular: Negative for Recent FL, Angina, Arrhythmia, CAD, Chest Pain +DVT, PE [...] wear CPAP. COPD (chronic obstructive pulmonary disease) ([facility]) Stable, on albuterol PRN, Singulair. States he has SOB with exertion in cold weather. Denies recent use of albuterol, cough or SOB. Lungs CTA on exam. Tobacco use Rare use of tobacco chew products. 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 ESOPHAGEAL REFLUX Stable, on rx. Pulmonary embolus with infarction ([facility]) H/o PE/DVT in 2006, 2017. On warfarin, states his PCP is giving lovenox bridging instructions for surgery. CHF (congestive heart failure) ([facility]) EF 75% on echocardiogram 10/08/2018. Right heart [...] initiated at this time: Requested records from respiratory manager for chart completeness. The Following Tests/Procedures Have [...] TIME: 7:24 AM documented in this encounter [facility] 01-08-2022 Miscellaneous Notes Spoke with patient, [...] time today. He was last seen [place] [facility] by Ming 11/08/2019. Number to return call [phone] Okay to leave a message ? Yes Last office visit 11/2019 with JS Next office visit with not scheduled Thank you calling [facility] [place]. You will receive a return call within 48 hours ( or 2 business days if close to the weekend). If you feel that this is an urgent issue and needs immediate attention, it is recommended that you contact your primary care provider office or proceed to your nearest Urgent Care Center of Emergency Room ED for evaluation/treatment. documented in this encounter [facility] 11-26-2021 Evaluation note Encounter Date Diagnosis Assessment Notes Nov, Stage 3b chronic kidney disease (CKD) (ICD-10 - N18.32) [facility] Other 02-08-2022 Evaluation note* Encounter Date Diagnosis [...] 1 diabetes mellitus (ICD-10 - E10.21) Hemoglobin [id number] is below 7% to attenuate chronic kidney [...] I advised the patient to go to [facility] emergency room Nov, Pure hypercholestero lemia (ICD-10 - E78.00) LDL goal in chronic kidney disease patient is less than 100 to reduce the risk of cardiovascular disease. Patient is working with his PCP/respiratory manager for this purpose on statin. [facility] Other 10-22-2021 NoteMR#: [id number] I [facility] Pt. Name: Andry Pierre Admitted: 07/21/2021 Discharged: [...] Russ MD Date Trans: 07/27/2021 09:41 Sona/michaela [id number] cc: Luis Mccormick M.D. [address] [id number] Chief Complaint Consultation for lump [...] hematuria Head injury Heart disease History of detention anticoagulant use History of stroke Hyperlipidemia Hypertension [...] complication, with long-term current use of insulin ([facility]) Obesity, Class III, BMI >= 40 Morbid obesity Essential hypertension Unspecified essential hypertension Difficult intravenous access Other specified conditions influencing health status Acute, but ill-defined, cerebrovascular disease Obstructive sleep apnea syndrome Obstructive sleep apnea (adult) (pediatric) Chronic obstructive pulmonary disease, unspecified COPD type ([facility]) Tobacco use Tobacco use disorder Tracheal stenosis Other diseases of trachea and bronchus Gastroesophageal reflux disease, unspecified whether esophagitis present Pulmonary embolus with infarction ([facility]) Other pulmonary embolism and infarction Congestive heart failure, unspecified HF chronicity, unspecified heart failure type ([facility]) Stage 3 chronic kidney disease, unspecified whether stage 3a or 3b CKD ([facility]) Essential tremor Essential and other specified forms of tremor Essential tremor Essential and other specified forms of tremor documented in this encounter [facility] note* Diagnosis 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 Essential tremor Essential and other specified forms of tremor documented in this encounter [facility] note* Diagnosis Essential tremor- Primary Essential and other specified forms of tremor Essential tremor Essential and other specified forms of tremor documented in this encounter [facility] noteNo InformationNortR[facility] EvaluAgent Other History general Narrative - Reported* Type [...] Hospitalization History CELLULITUS Hospitalization History HEART FAILURE [employer] [employer] Other Summary Purpose Family History No Family History Records FoundNo Family History Records FoundNo Family History Records FoundNo Family History Records FoundNo Family History Records FoundNo Family History Records FoundNo Family History Records Found Advance Directives No Advanced Directives Records FoundDocuments on File Type Date Recorded 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 Advance Directive(s) Advance Directive(s) 01/05/2020 5:50 AM Advance Directive(s) 06/24/2019 10:59 AM Advance Directive(s) 06/24/2019 2:04 PM Advance Directive(s) 06/24/2019 2:00 PM Advance Directive(s) 06/18/2019 12:37 PM Advance Directive(s) 07/18/2016 2:43 PM Documents on File Type Date Recorded 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 Advance Directive(s) 06/24/2019 2:00 PM Additional Source Comments (unrecognized sect ion and content) No Status Records FoundNo Status Records FoundNo Status Records FoundNo Status Records FoundNo Status Records FoundNo Status Records FoundNo Status Records Found INFORMATION SOURCE (unrecogn ized section and content) DATE CREATED AUTHOR 06/01/2021 [facility] DATE CREATED AUTHOR AUTHOR'S ORGANIZ ATION 10/30/2021 [facility] DATE CREATED AUTHOR AUTHOR'S ORGANIZ ATION 05/31/2022 [facility] DATE CREATED AUTHOR AUTHOR'S ORGANIZ ATION 03/14/2023 [facility] DATE CREATED AUTHOR AUTHOR'S ORGANIZ ATION 08/14/2023 [facility] DATE CREATED AUTHOR AUTHOR'S ORGANIZ ATION 08/28/2023 [facility] DATE CREATED AUTHOR AUTHOR'S ORGANIZ ATION 09/24/2023 [facility] Source Comments (unrecognize d section and content) In the event this informatio n is protected by the Federal Confidentiality of Alcohol and Drug Abuse Patient Records regulations: The Federal rules restrict any use of the information to criminally investigate or prosecute any alcohol or drug abuse patient.[facility] the event this information is protected by the Federal Confidentiality of Alcohol and Drug Abuse Patient Records regulations: The Federal rules restrict any use of the information to criminally investigate or prosecute any alcohol or drug abuse patient.[facility] the event this information is protected by the Federal Confidentiality of Alcohol and Drug Abuse Patient Records regulations: The Federal rules restrict any use of the information to criminally investigate or prosecute any alcohol or drug abuse patient.[facility] the event this information is protected by the Federal Confidentiality of Alcohol and Drug Abuse Patient Records regulations: The Federal rules restrict any use of the information to criminally investigate or prosecute any alcohol or drug abuse patient.[facility] Hospital[facility] the event this information is protected by the Federal Confidentiality of Alcohol and Drug Abuse Patient Records regulations: The Federal rules restrict any use of the information to criminally investigate or prosecute any alcohol or drug abuse patient.[facility] the event this information is protected by the Federal Confidentiality of Alcohol and Drug Abuse Patient Records regulations: The Federal rules restrict any use of the information to criminally investigate or prosecute any alcohol or drug abuse patient.[facility] the event this information is protected by the Federal Confidentiality of Alcohol and Drug Abuse Patient Records regulations: The Federal rules restrict any use of the information to criminally investigate or prosecute any alcohol or drug abuse patient.[facility] the event this information is protected by the Federal Confidentiality of Alcohol and Drug Abuse Patient Records regulations: The Federal rules restrict any use of the information to criminally investigate or prosecute any alcohol or drug abuse patient.[facility] Reason for Visit (unrecogniz ed section and content) Reason Comments DBS MARIA G message Reason Comments Pre-Op Visit Reason Comments Results Reason Comments DBS problem Care Teams (unrecognized sec tion and content) Refueling Ramp Supervisor Relationship Specialty Start Date End Date Luis Mccormick MD PCP - General Family Practice 07/15/16 Refueling Ramp Supervisor Relationship Specialty Start Date End Date Luis Mccormick MD [address] [place] [facility] [place] [address] PCP - General Family Practice 07/15/16 Saúl Lunsford MD [address] [place] [facility] [phone] Cardiology 01/21/22 Refueling Ramp Supervisor Relationship Specialty Start Date End Date Luis Mccormick MD [address] [place] [facility] [place] [address] PCP - General Family Practice 07/15/16 [facility] [address] [place] [facility] [place] [phone] Cardiology 01/21/22 Refueling Ramp Supervisor Relationship Specialty Start Date End Date Luis Mccormick MD [address] [place] [facility] [place] [address] PCP - General Family Practice 07/15/16 [facility] [address] [place] [place] [address] Cardiology 01/21/22 Refueling Ramp Supervisor Relationship Specialty Start Date End Date Luis Mccormick MD [address] [place] [facility] [place] [address] PCP - General Family Practice 07/15/16 [facility] [address] [place] [place] [address] Cardiology 01/21/22 Refueling Ramp Supervisor Relationship Specialty Start Date End Date Luis Mccormick MD PCP - General Family Medicine 07/15/16 Saúl Lunsford MD [address] [place] [address] Cardiology 01/21/22 Refueling Ramp Supervisor Relationship Specialty Start Date End Date Luis Mccormick MD PCP - General Family Medicine 07/15/16 Salú Lunsford MD [address] [place] [address] Cardiology 01/21/22 FOR RECORDS PERTAINING [...] PRIMARY CLINICAL RECORDS. [facility] [facility]. provides no warranty or guarantee of the accuracy or completeness of information in this document.
[2023-10-08] MEDS: LACTATED RINGER'S SOLUTION 1,000 ML 100 ML IV (14:40)
[2023-10-08 16:12] LABS: Glucometer 132 mg/dL (74-106)
[2023-10-08 16:51] LABS: Troponin I High Sensitivity 54.4 pg/mL (4.0-76.1)
[2023-10-08] MEDS: WARFARIN SODIUM 5 MG TABLET 10 MG PO (17:30)
[2023-10-08] MEDS: TOPIRAMATE 25 MG TABLET 100 MG PO (21:17)
[2023-10-08] MEDS: CLONIDINE HCL 0.1 MG TABLET 0.05 MG PO (21:17)
[2023-10-08] MEDS: ATORVASTATIN CALCIUM 40 MG TABLET PO (21:17)
[2023-10-08 21:18] LABS: Glucometer 129 mg/dL (74-106)
[2023-10-09] VITALS (16 sets, daily range): BP systolic 134–154; BP diastolic 74–82; PULSE 54–81; RESP 18–20; TEMP 36.4–36.6; O2SAT 92–96; BMI 41.3
[2023-10-09] MEDS: TRAMADOL HCL 50 MG TABLET 100 MG PO ×4 (00:11→23:47)
[2023-10-09] MEDS: LACTATED RINGER'S SOLUTION 1,000 ML 100 ML IV ×3 (02:15→23:42)
[2023-10-09 03:11] LABS: Glucometer 139 mg/dL (74-106)
[2023-10-09] MEDS: OMEPRAZOLE 40 MG CAPSULE.DR PO (05:39)
[2023-10-09 06:02] LABS: Basophils Absolute Auto 0.1 10^3/uL (0.0-0.1); Basophils Percent Auto 0.7 % (0.2-2.0); Eosinophils Absolute Auto 0.1 10^3/uL (0.0-0.7); Eosinophils Percent Auto 1.1 % (0.9-7.0); Hematocrit 47.5 % (42.0-54.0); Hemoglobin 15.7 g/dL (14.0-18.0); Immature Granulocytes Abs Auto 0.06 10^3/uL (0.00-0.03); Immature Granulocytes Pct Auto 0.6 % (0.0-0.5); Lymphocytes Percent Auto 19.5 % (20.5-60.0); Mean Corpuscular HGB Conc 33.1 g/dL (29.9-35.2); Mean Corpuscular Hemoglobin 31.5 pg (25.9-34.0); Mean Corpuscular Volume 95.2 fL (80.0-94.0); Mean Platelet Volume 10.5 fL (9.5-13.5); Monocytes Absolute Auto 0.6 10^3/uL (0.3-0.8); Monocytes Percent Auto 5.4 % (1.7-12.0); Neutrophils Absolute Auto 7.6 10^3/uL (1.4-6.5); Neutrophils Percent Auto 72.7 % (43.0-75.0); Platelet Count 214 10^3/uL (150-450); Red Blood Count 4.99 10^6/uL (4.70-6.10); Red Cell Distribution Width 13.2 % (11.0-15.0); White Blood Count 10.5 10^3/uL (4.0-11.0)
[2023-10-09 06:11] LABS: INR 1.22; Prothrombin Time 12.8 sec (9.0-11.6)
[2023-10-09 06:19] LABS: Ammonia 19 umol/L (11-32)
[2023-10-09 06:25] LABS: Anion Gap 11.3; Carbon Dioxide 25.2 mmol/L (21.0-32.0); Chloride 111 mmol/L (98-107); Potassium 3.5 mmol/L (3.5-5.1); Sodium 144 mmol/L (136-145)
[2023-10-09 06:26] LABS: Alanine Aminotransferase 25 U/L (16-63); Albumin Globulin Ratio 0.7; Albumin Level 2.6 g/dL (3.4-5.0); Alkaline Phosphatase 92 U/L (46-116); Aspartate Amino Transferase 16 U/L (15-37); BUN Creatinine Ratio 13.3; Bilirubin Total 0.3 mg/dL (0.2-1.0); Estimated GFR (African America 54 (>=60); Estimated GFR (Non-African Ame 45 (>=60); Globulin 3.6 g/dL; Glucose 61 mg/dL (74-106); Magnesium 2.2 mg/dL (1.8-2.4); Total Protein 6.2 g/dL (6.4-8.2); Troponin I High Sensitivity 54.5 pg/mL (4.0-76.1)
[2023-10-09 07:19] LABS: Glucometer 86 mg/dL (74-106)
--- NOTE | 2023-10-09 08:06 | P.HP_ITS ---
H&P: HPI History of Present Illness Chief complaint: DIZZINESS, CVA, CP, SOB Narrative: Patient seen and evaluated in the office with having increasing chest pain. Referred him to the emergency room. Workup in the emergency room so far was negative. Does have a recent CVA. Difficulty ambulating secondary to the recent CVA. Patient was placed in observation bed overnight. Patient still having intermittent chest pain with activity. Patient also found to have acute kidney injury, still with dark urine this morning. PFSH PFSH Medical History Acid reflux ?K21.9 - Gastro-esophageal reflux disease without esophagitis (ICD-10) Angina at rest ?I20.89 - Other forms of angina pectoris (ICD-10) CHF (congestive heart failure) ?I50.9 - Heart failure, unspecified (ICD-10) COPD (chronic obstructive pulmonary disease) ?J44.9 - Chronic obstructive pulmonary disease, unspecified (ICD-10) Emphysema lung ?J43.9 - Emphysema, unspecified (ICD-10) High cholesterol ?E78.00 - Pure hypercholesterolemia, unspecified (ICD-10) Implantable loop recorder present ?Z95.818 - Presence of other cardiac implants and grafts (ICD-10) Kidney failure ?N19 - Unspecified kidney failure (ICD-10) Palpitations ?R00.2 - Palpitations (ICD-10) Stroke ?I63.9 - Cerebral infarction, unspecified (ICD-10) Surgical History H/O arthroscopic knee surgery ?Z98.890 - Other specified postprocedural states (ICD-10) H/O inguinal hernia repair ?Z98.890 - Other specified postprocedural states (ICD-10) ?Z87.19 - Personal history of other diseases of the digestive system (ICD-10) History of Achilles tendon repair ?Z98.890 - Other specified postprocedural states (ICD-10) History of ankle surgery ?Z98.890 - Other specified postprocedural states (ICD-10) History of cardiac cath ?Z98.890 - Other specified postprocedural states (ICD-10) History of carpal tunnel release ?Z98.890 - Other specified postprocedural states (ICD-10) History of hydrocelectomy ?Z98.890 - Other specified postprocedural states (ICD-10) History of sinus surgery ?Z98.890 - Other specified postprocedural states (ICD-10) History of tonsillectomy ?Z90.89 - Acquired absence of other organs (ICD-10) Hx of cholecystectomy ?Z90.49 - Acquired absence of other specified parts of digestive tract (ICD- 10) Status post deep brain stimulator placement ?Z96.89 - Presence of other specified functional implants (ICD-10) Status post emergency tracheotomy for assistance in breathing ?Z93.0 - Tracheostomy status (ICD-10) Social History Smoking status: Never smoker Highest level of school completed/degree received: Bachelor's degree Meds Home Medications and Allergies Home Medications Medication Instructions Recorded Confirmed Type atorvastatin 40 mg tablet 40 mg PO .QD 04/01/23 10/08/23 History candesartan 8 mg tablet 4 mg PO .QD 04/01/23 10/08/23 History cetirizine 10 mg tablet 10 mg PO DAILY PRN allergy symptoms 04/01/23 10/08/23 History cholecalciferol (vitamin D3) 50 50 mcg PO DAILY 04/01/23 10/08/23 History mcg (2,000 unit) capsule (D3-2000) clonidine HCl 0.1 mg tablet 0.05 mg PO BID 04/01/23 10/08/23 History furosemide 40 mg tablet 40 mg PO BID 04/01/23 10/08/23 History montelukast 10 mg tablet 10 mg PO .QD 04/01/23 10/08/23 History nifedipine 90 mg tablet,extended 90 mg PO .QD 04/01/23 10/08/23 History release 24 hr oxybutynin chloride 10 mg 10 mg PO .QD 04/01/23 10/08/23 History tablet,extended release 24 hr pantoprazole 40 mg tablet,delayed 40 mg PO .QD 04/01/23 10/08/23 History release potassium chloride 20 mEq 20 meq PO .QD 04/01/23 10/08/23 History tablet,extended release topiramate 50 mg tablet 100 mg PO Q12H 04/01/23 10/08/23 History tramadol 50 mg tablet 100 mg PO Q12H PRN pain 04/01/23 10/08/23 History warfarin 5 mg tablet 10 mg PO .QD 04/01/23 10/08/23 History empagliflozin 10 mg tablet 10 mg PO QDAY 10/08/23 10/08/23 History (Jardiance) indomethacin 50 mg capsule 50 mg PO BID 10/08/23 10/08/23 History insulin degludec 100 unit/mL (3 56 unit subcut BID 10/08/23 10/08/23 History mL) subcutaneous pen (Tresiba FlexTouch U-100 insulin) Allergies Allergy/AdvReac Type Severity Reaction Status Date / Time diazepam [From Valium] Allergy Verified 09/22/23 10:28 gabapentin [From Neurontin] Allergy Verified 09/22/23 10:28 BETA BLOCKERS Allergy Headache Uncoded 09/22/23 10:28 Exam Constitutional Vital Signs, click to edit/add: Last Vital Signs Temp 97.6 F 10/09/23 05:43 Pulse 65 10/09/23 06:00 Resp 20 10/09/23 05:43 BP 154/82 H 10/09/23 05:43 Pulse Ox 94 L 10/09/23 05:43 O2 Del Method Room Air 10/09/23 05:43 Documenting provider has reviewed patient's vital signs: yes Common normals: no apparent distress HENMT Common normals: oral mucous membranes not moist Chest Common normals: inspection of chest normal Respiratory Common normals: normal respiratory effort and no retractions Cardio Common normals: regular rate and regular rhythm Neuro Sensorium/orientation: awake, alert and oriented to person Gait (neuro): abnormal gait (See physical therapy notes) Results Labs Labs: Short CBC 10/08/23 10/09/23 Range/Units 11:01 05:28 WBC 8.1 10.5 (4.0-11.0) 10^3/uL Hgb 15.5 15.7 (14.0-18.0) g/dL Hct 46.2 47.5 (42.0-54.0) % Plt Count 197 214 (150-450) 10^3/uL BMP 10/08/23 10/09/23 11:01 05:28 Sodium 143 144 Potassium 4.2 3.5 Chloride 111 H 111 H Carbon Dioxide 24.3 25.2 BUN 25.0 H 21.0 H Creatinine 2.09 H 1.58 H Glucose 117 H 61 L Calcium 9.1 9.0 Liver Function 10/09/23 Range/Units 05:28 Total Bilirubin 0.3 (0.2-1.0) mg/dL AST 16 (15-37) U/L ALT 25 (16-63) U/L Alkaline Phosphatase 92 (46-116) U/L Albumin 2.6 L (3.4-5.0) g/dL ABG ABG results: 10/08/23 11:02 VBG pH 7.342 VBG pCO2 43.9 Assessment and Plan Assessment and Plan (1) CVA (cerebrovascular accident): (2) Expressive aphasia: (3) Diabetes: Plan Chest pain-cardiac markers negative, check on echocardiogram, consult to cardiology Patient CVA-consult to telestroke for recommendations on CVA prevention. Currently on Coumadin. Unable to get MRI scan secondary to neurostimulator in place Acute kidney injury with creatinine 1.7 times normal for him.-secondary to medication possible, held his diuretics, continue with IV fluid resuscitation slowly. Poorly controlled diabetes mellitus-fairly stable so far here. Will continue with current diet and insulin regiment. Moderate protein calorie malnutrition-diet management Patient could benefit from rehabilitation stay. Will reevaluate bed status once evaluated by telestroke.
[2023-10-09] MEDS: 0.9 % SODIUM CHLORIDE 500 ML IV (09:10)
[2023-10-09] MEDS: TOPIRAMATE 25 MG TABLET 100 MG PO ×2 (09:11→22:08)
[2023-10-09] MEDS: MONTELUKAST SODIUM 10 MG TABLET PO (09:11)
[2023-10-09] MEDS: CHOLECALCIFEROL (VITAMIN D3) 25 MCG/1,000 UNITS TABLET 50 MCG PO (09:11)
[2023-10-09] MEDS: CANAGLIFLOZIN 100 MG TABLET PO (09:11)
[2023-10-09] MEDS: ISOSORBIDE MONONITRATE 30 MG TAB.ER.24H PO (09:11)
[2023-10-09] MEDS: OXYBUTYNIN CHLORIDE 5 MG TAB XL 10 MG PO (09:11)
[2023-10-09] MEDS: NIFEdipine 30 MG TAB.ER.24 90 MG PO (09:11)
[2023-10-09] MEDS: ENOXAPARIN SODIUM 80 MG/0.8 ML SYRINGE SUBQ ×2 (09:12→22:09)
[2023-10-09] MEDS: CLONIDINE HCL 0.1 MG TABLET 0.05 MG PO ×2 (09:12→22:07)
[2023-10-09 11:32] LABS: Glucometer 178 mg/dL (74-106)
--- NOTE | 2023-10-09 12:29 | NUTR.NU ---
Dietary consult completed this date. Interviewed Jono at bedside. at bedside. Jono shared he has difficulty swallowing. Seen and evaluated by KENO CLERK 10/09/23. Bedside swallow completed. Reviewed labs abnormals BUN 21; creatinine1.58 GFR 45 L serum albumin 2.6 L glucose 178 Recommend prostat @ 30 ml po bid R/T low serum albumin
--- NOTE | 2023-10-09 12:42 | CM.NOTE ---
Pt refuses skilled therapy, pt would like to try HH services. Pt given [employer] 5 star rating for HH to make his choice.
[2023-10-09] MEDS: ACETAMINOPHEN 500 MG TABLET 1000 MG PO (13:32)
[2023-10-09] MEDS: INSULIN ASPART 300 UNIT/3 ML PEN SUBQ ×3 (13:37→23:41)
--- NOTE | 2023-10-09 13:49 | CM.NOTE ---
Pt would like to go with [facility], e-faxed clinical to [facility].
--- NOTE | 2023-10-09 14:20 | CM.NOTE ---
[facility] now unable to provide services to pt's area, updated pt. Now would like [address] Clinical faxed to [facility].
--- NOTE | 2023-10-09 15:48 | P.CACN_ITS ---
History of Present Illness History of Present Illness Consult date: 10/09/23 Requesting physician: Say Amato Consult reason: chest pain Chief complaint: DIZZINESS, CVA, CP, SOB Narrative: Patient is a 62 y/o M with PMHx of CAD (2020 cath showed non-obstructive CAD with endothelial dysfunction to RCA), chronic diastolic heart failure, HTN, DM type II, prothrombin gene mutation and hx of DVT/PE on coumadin, CVA x3, PAM, parkinson's vs myesthenia gravis s/p deep brain stimulator who presented to [facility] with c/o stroke like sx's and chest pain. He reports over the past 2 weeks his sx's of chest pain have been worsening. He experiences left sided chest pain, he thinks it may be radiating down his left arm. Occurs with stress or exertion. Can last seconds to minutes. He has also been experiencing worsening SIMMONS. He denies weight gain, orthopnea, or worsening leg swelling. He has a hx of chest pain. He was unable to tolerate Imdur in the past due to worsening headaches, and Ranexa caused him to have increased dizziness. He reports for the past 2 weeks he has tried taking Ranexa again to see if this would help with his sx's but he saw no improvement. His EKG showed artifact due to his DBS but otherwise was NSR with no acute changes. His troponin was negative. He has dizziness anytime he stands. He has not been able to do his activities like he usually does due to his chest pain, fatigue, SOB. He wonders if he may have some depression setting in as he has not been motivated to participate in things that he once enjoyed doing. Telehealth neurology has been consulted. Review of Systems ROS Constitutional Reports: fatigue Eyes Reports: change in vision (double vision) and blurry vision Ears, nose, mouth, and throat Reports: difficulty swallowing Cardiovascular Reports: chest pain, edema, lightheadedness and shortness of br eath with exertion Respiratory Reports: shortness of breath Gastrointestinal Reports: difficulty swallowing Musculoskeletal Reports: back pain Integumentary/Breast Denies: rash or changes in skin color Neurological Reports: headache, weakness in extremities, dizziness and slurred speech Psychiatric Reports: loss of interest Endocrine Reports: fatigue; Denies: excessive urination Hematologic/Lymphatic Denies: easy bruising or easy bleeding [facility] Medical History Acid reflux ?K21.9 - Gastro-esophageal reflux disease without esophagitis (ICD-10) Angina at rest ?I20.89 - Other forms of angina pectoris (ICD-10) CHF (congestive heart failure) ?I50.9 - Heart failure, unspecified (ICD-10) COPD (chronic obstructive pulmonary disease) ?J44.9 - Chronic obstructive pulmonary disease, unspecified (ICD-10) Emphysema lung ?J43.9 - Emphysema, unspecified (ICD-10) High cholesterol ?E78.00 - Pure hypercholesterolemia, unspecified (ICD-10) Implantable loop recorder present ?Z95.818 - Presence of other cardiac implants and grafts (ICD-10) Kidney failure ?N19 - Unspecified kidney failure (ICD-10) Palpitations ?R00.2 - Palpitations (ICD-10) Stroke ?I63.9 - Cerebral infarction, unspecified (ICD-10) Surgical History H/O arthroscopic knee surgery ?Z98.890 - Other specified postprocedural states (ICD-10) H/O inguinal hernia repair ?Z98.890 - Other specified postprocedural states (ICD-10) ?Z87.19 - Personal history of other diseases of the digestive system (ICD-10) History of Achilles tendon repair ?Z98.890 - Other specified postprocedural states (ICD-10) History of ankle surgery ?Z98.890 - Other specified postprocedural states (ICD-10) History of cardiac cath ?Z98.890 - Other specified postprocedural states (ICD-10) History of carpal tunnel release ?Z98.890 - Other specified postprocedural states (ICD-10) History of hydrocelectomy ?Z98.890 - Other specified postprocedural states (ICD-10) History of sinus surgery ?Z98.890 - Other specified postprocedural states (ICD-10) History of tonsillectomy ?Z90.89 - Acquired absence of other organs (ICD-10) Hx of cholecystectomy ?Z90.49 - Acquired absence of other specified parts of digestive tract (ICD- 10) Status post deep brain stimulator placement ?Z96.89 - Presence of other specified functional implants (ICD-10) Status post emergency tracheotomy for assistance in breathing ?Z93.0 - Tracheostomy status (ICD-10) Social History Smoking status: Never smoker Highest level of school completed/degree received: Bachelor's degree Meds Home Medications and Allergies Home Medications Medication Instructions Recorded Confirmed Type atorvastatin 40 mg tablet 40 mg PO .QD 04/01/23 10/08/23 History candesartan 8 mg tablet 4 mg PO .QD 04/01/23 10/08/23 History cetirizine 10 mg tablet 10 mg PO DAILY PRN allergy symptoms 04/01/23 10/08/23 History cholecalciferol (vitamin D3) 50 50 mcg PO DAILY 04/01/23 10/08/23 History mcg (2,000 unit) capsule (D3-2000) clonidine HCl 0.1 mg tablet 0.05 mg PO BID 04/01/23 10/08/23 History furosemide 40 mg tablet 40 mg PO BID 04/01/23 10/08/23 History montelukast 10 mg tablet 10 mg PO .QD 04/01/23 10/08/23 History nifedipine 90 mg tablet,extended 90 mg PO .QD 04/01/23 10/08/23 History release 24 hr oxybutynin chloride 10 mg 10 mg PO .QD 04/01/23 10/08/23 History tablet,extended release 24 hr pantoprazole 40 mg tablet,delayed 40 mg PO .QD 04/01/23 10/08/23 History release potassium chloride 20 mEq 20 meq PO .QD 04/01/23 10/08/23 History tablet,extended release topiramate 50 mg tablet 100 mg PO Q12H 04/01/23 10/08/23 History tramadol 50 mg tablet 100 mg PO Q12H PRN pain 04/01/23 10/08/23 History warfarin 5 mg tablet 10 mg PO .QD 04/01/23 10/08/23 History empagliflozin 10 mg tablet 10 mg PO QDAY 10/08/23 10/08/23 History (Jardiance) indomethacin 50 mg capsule 50 mg PO BID 10/08/23 10/08/23 History insulin degludec 100 unit/mL (3 56 unit subcut BID 10/08/23 10/08/23 History mL) subcutaneous pen (Tresiba FlexTouch U-100 insulin) Allergies Allergy/AdvReac Type Severity Reaction Status Date / Time diazepam [From Valium] Allergy Verified 09/22/23 10:28 gabapentin [From Neurontin] Allergy Verified 09/22/23 10:28 BETA BLOCKERS Allergy Headache Uncoded 09/22/23 10:28 Exam Constitutional Vital Signs, click to edit/add: Last Vital Signs Temp 97.6 F 10/09/23 05:43 Pulse 69 10/09/23 13:56 Resp 20 10/09/23 05:43 BP 154/82 H 10/09/23 05:43 Pulse Ox 96 10/09/23 11:35 O2 Del Method Room Air 10/09/23 11:35 Common normals: oriented x3 and alert General appearance: cooperative Nutritional appearance: obese HENMT Common normals: normocephalic and head/scalp atraumatic Nose: external nose normal Eye Common normals: EOMs intact bilaterally and conjunctivae normal Neck & C-Spine Common normals: full ROM, supple and no JVD Chest Common normals: inspection of chest normal Respiratory Common normals: normal respiratory effort, no use of accessory muscles and clear to auscultation bilaterally Cardio Common normals: no JVD, regular rate, regular rhythm, S1 normal heart sound, S2 normal heart sound and peripheral pulses 2+ throughout Other: trace BLE edema GI Common normals: Normal to inspection, nondistended, normoactive bowel sounds present Extremity Common normals: full ROM, no joint enlargement and no calf tenderness Neuro Common normals: oriented x3 and moves all extremities Speech: expressive aphasia Results Labs and Meds Lab results: Cardiac Enzymes 10/09/23 Range/Units 05:28 AST 16 (15-37) U/L Coagulation 10/09/23 Range/Units 05:28 PT 12.8 H (9.0-11.6) sec CBC 10/09/23 Range/Units 05:28 WBC 10.5 (4.0-11.0) 10^3/uL RBC 4.99 (4.70-6.10) 10^6/uL Hgb 15.7 (14.0-18.0) g/dL Hct 47.5 (42.0-54.0) % Plt Count 214 (150-450) 10^3/uL Neut # (Auto) 7.6 H (1.4-6.5) 10^3/uL Lymph # (Auto) 2.0 (1.2-3.8) 10^3/uL [place] # (Auto) 0.6 (0.3-0.8) 10^3/uL Eos # (Auto) 0.1 (0.0-0.7) 10^3/uL Baso # (Auto) 0.1 (0.0-0.1) 10^3/uL Comprehensive Metabolic Panel 10/09/23 Range/Units 05:28 Sodium 144 (136-145) mmol/L Potassium 3.5 (3.5-5.1) mmol/L Chloride 111 H (98-107) mmol/L Carbon Dioxide 25.2 (21.0-32.0) mmol/L BUN 21.0 H (7.0-18.0) mg/dL Creatinine 1.58 H (0.70-1.30) mg/dL Glucose 61 L (74-106) mg/dL Calcium 9.0 (8.5-10.1) mg/dL AST 16 (15-37) U/L ALT 25 (16-63) U/L Alkaline Phosphatase 92 (46-116) U/L Total Protein 6.2 L (6.4-8.2) g/dL Albumin 2.6 L (3.4-5.0) g/dL Intake and Output 10/08/23 10/09/23 10/09/23 23:59 07:59 15:59 Intake Total 1000 / 1860 1500 / 1500 Output Total 450 / 1250 800 / 1250 Balance -450 / 610 200 / 610 1500 / 1500 Intake: IV 1000 / 1500 1500 / 1500 0.9 % Sodium Chloride 500 ml @ 500 / 500 500 mls/hr IV .Q1H ONE Rx#: [id number] Lactated Ringer's Solution 1, 1000 / 1000 1000 / 1000 000 ml @ 100 mls/hr IV .Q10H JASMIN Rx#:[id number] Output: Urine 450 / 1250 800 / 1250 Other: Weight 127 kg Patient Weight 10/10/23 07:59 Weight 127 kg Imaging and Cardiology Echo: pending EKG Interpretation EKG: no acute changes (artifact noted) ECG shows: sinus rhythm Assessment and Plan Assessment and Plan (1) CVA (cerebrovascular accident): (2) Expressive aphasia: (3) Diabetes: Plan #Chest pain #Hx nonobstructive CAD per 2019 cath -He has sx's of anginal chest pain. -EKG and troponin levels were unremarkable. -He has an ECHO pending. -Recommend proceeding with stress test to assess for ischemia. If stress test is abnormal, will have to discuss timing of cardiac cath given concerns for possible recent CVA. -Resume ASA 81mg daily. Continue atorvastatin. Patient has noted intolerance to BB. #Concern for recurrent CVA, hx of CVA x3 -Telestroke consulted #HTN -BP is elevated -Recommend starting hydralazine if it remains elevated. Can start with 25mg BID and uptitrate as needed. #ADOLFO on CKD -Improving with IV fluids #Chronic HFpEF -He appers compensated on exam -BNP on admission was ~100 -Continue current dose of lasix #Hx bradycardia #Dizziness -Will reach out to [place] device [facility] to see if any alarms have been noted on LOOP recorder. Caryn Hidalgo APRN-[employer]ACQUER DIPPING MACHINE OPERATOR [facility] Cardiovascular Medicine
--- NOTE | 2023-10-09 16:04 | CM.NOTE ---
[facility] can accept patient. Updated RN and patient.
[2023-10-09 16:08] LABS: Glucometer 163 mg/dL (74-106)
--- NOTE | 2023-10-09 16:15 | NM_ITS ---
Patient Name: ANDRY PIERRE MR#: [id number] : 1960 Exam Date: 10/10/2023 Ordering Doctor: SOFYA SMART CNP RADIOLOGY REPORT PROCEDURE: NM FREDA PERF SPECT REST STR COMPARISON: None. INDICATIONS: chest pain, hx CAD TECHNIQUE: Exam Description: Stress/Rest two day protocol gated SPECT Rest Imagin.8 mCi Tc-99m Cardiolite IV on 10/11/2022 Stress Imaging 24.9 mCi Tc-99m Cardiolite IV on 10/10/2022 Exercise Protocol: 0.4 mg Lexiscan given IV Heart Rate (bpm): Rest: 59 Max: 81 PMHR: 51 Blood Pressure: Rest: 162/84 Max: 164/86 Symptoms: Rest and peak stress ECG findings were equivocal and the exercise portion of the study was Equivocal per attending physician Dr. Ramirez . For more details please see separate cardiac stress test report. FINDINGS: QUALITY OF STUDY: Excellent. PERFUSION DEFECT: LOCATION: Apical anterior. SIZE: Small (1-2 segments). SEVERITY: Mild. TYPE: Persistent. WALL MOTION: LV SIZE: Normal. 125 mL. TID / TCD: None; 1.1 LVEF: Normal. Calculated EF 56%. SUMMARY: Myocardial perfusion imaging study has ABNORMAL findings. CONCLUSION: 1. 1. No acute or reversible ischemia. 2. Small, mild fixed perfusion defect involving the anterior apex versus breast attenuation artifact. 3. Borderline ventriculomegaly, 125 mL. 4. Ejection fraction is at lower end of normal, 56% 5. Normal wall motion.. Dictated by: Moreno Winters M.D. on 10/15/2023 at 15:31 Approved by: Moreno Winters M.D. on 10/15/2023 at 15:35
--- NOTE | 2023-10-09 16:26 | CM.NOTE ---
Medicare Outpatient Observation Notice discussed with pt, pt verbalizes understanding and signs paper. Original given to pt and copy placed on pt's chart.
[2023-10-09] MEDS: ASPIRIN 81 MG TAB.CHEW PO (17:37)
[2023-10-09] MEDS: WARFARIN SODIUM 5 MG TABLET 10 MG PO (17:41)
[2023-10-09] MEDS: LOSARTAN POTASSIUM 25 MG TABLET PO (17:42)
[2023-10-09 20:19] LABS: Glucometer 221 mg/dL (74-106)
[2023-10-09] MEDS: ATORVASTATIN CALCIUM 40 MG TABLET PO (22:08)
[2023-10-10] VITALS (18 sets, daily range): BP systolic 131–145; BP diastolic 76–89; PULSE 50–86; RESP 18–20; TEMP 36.3–36.4; O2SAT 92–95
[2023-10-10] MEDS: OMEPRAZOLE 40 MG CAPSULE.DR PO (05:25)
[2023-10-10 05:37] LABS: Basophils Absolute Auto 0.1 10^3/uL (0.0-0.1); Eosinophils Absolute Auto 0.5 10^3/uL (0.0-0.7); Eosinophils Percent Auto 5.7 % (0.9-7.0); Hematocrit 45.3 % (42.0-54.0); Hemoglobin 14.8 g/dL (14.0-18.0); Immature Granulocytes Abs Auto 0.03 10^3/uL (0.00-0.03); Immature Granulocytes Pct Auto 0.4 % (0.0-0.5); Lymphocytes Absolute Auto 3.9 10^3/uL (1.2-3.8); Mean Corpuscular HGB Conc 32.7 g/dL (29.9-35.2); Mean Corpuscular Hemoglobin 31.8 pg (25.9-34.0); Mean Corpuscular Volume 97.4 fL (80.0-94.0); Mean Platelet Volume 10.3 fL (9.5-13.5); Monocytes Absolute Auto 0.6 10^3/uL (0.3-0.8); Neutrophils Absolute Auto 3.1 10^3/uL (1.4-6.5); Neutrophils Percent Auto 37.9 % (43.0-75.0); Platelet Count 210 10^3/uL (150-450); Red Blood Count 4.65 10^6/uL (4.70-6.10); Red Cell Distribution Width 13.7 % (11.0-15.0); White Blood Count 8.2 10^3/uL (4.0-11.0)
[2023-10-10 05:49] LABS: INR 1.33; Prothrombin Time 13.9 sec (9.0-11.6)
[2023-10-10 06:07] LABS: Alanine Aminotransferase 26 U/L (16-63); Albumin Globulin Ratio 0.7; Albumin Level 2.9 g/dL (3.4-5.0); Alkaline Phosphatase 93 U/L (46-116); Anion Gap 7.7; Aspartate Amino Transferase 17 U/L (15-37); BUN Creatinine Ratio 15.9; Bilirubin Total 0.3 mg/dL (0.2-1.0); Calcium 9.4 mg/dL (8.5-10.1); Carbon Dioxide 28.1 mmol/L (21.0-32.0); Chloride 109 mmol/L (98-107); Estimated GFR (African America 57 (>=60); Estimated GFR (Non-African Ame 47 (>=60); Globulin 3.9 g/dL; Glucose 60 mg/dL (74-106); Potassium 3.8 mmol/L (3.5-5.1); Sodium 141 mmol/L (136-145); Total Protein 6.8 g/dL (6.4-8.2)
[2023-10-10] MEDS: DEXTROSE 50 %-WATER 25 GM/50 ML SYRINGE IV (06:26)
[2023-10-10 07:35] LABS: Glucometer 106 mg/dL (74-106)
--- NOTE | 2023-10-10 08:29 | P.PN_ITS ---
Progress Note: Subjective Subjective Interval history: Patient still with intermittent chest pain. Pressure type. Exam Constitutional Vital Signs, click to edit/add: Last Vital Signs Temp 97.5 F L 10/10/23 05:28 Pulse 52 L 10/10/23 07:48 Resp 20 10/10/23 05:28 BP 131/76 10/10/23 05:28 Pulse Ox 92 L 10/10/23 05:28 O2 Del Method Room Air 10/10/23 05:28 Documenting provider has reviewed patient's vital signs: yes Common normals: no apparent distress HENMT Common normals: oral mucous membranes not moist Chest Common normals: inspection of chest normal Respiratory Common normals: normal respiratory effort and no retractions Cardio Common normals: regular rate and regular rhythm Neuro Sensorium/orientation: awake, alert and oriented to person Gait (neuro): abnormal gait (See physical therapy notes) Progress Note: Objective Labs Labs: Short CBC 10/10/23 Range/Units 05:11 WBC 8.2 (4.0-11.0) 10^3/uL Hgb 14.8 (14.0-18.0) g/dL Hct 45.3 (42.0-54.0) % Plt Count 210 (150-450) 10^3/uL BMP 10/10/23 05:11 Sodium 141 Potassium 3.8 Chloride 109 H Carbon Dioxide 28.1 BUN 24.0 H Creatinine 1.51 H Glucose 60 L Calcium 9.4 Liver Function 10/10/23 Range/Units 05:11 Total Bilirubin 0.3 (0.2-1.0) mg/dL AST 17 (15-37) U/L ALT 26 (16-63) U/L Alkaline Phosphatase 93 (46-116) U/L Albumin 2.9 L (3.4-5.0) g/dL Progress Note: A&P Assessment and Plan (1) CVA (cerebrovascular accident): (2) Expressive aphasia: (3) Diabetes: Plan Chest pain-cardiac markers negative, cardiogram still pending, plan from cardiology is a stress test which will need to be a 2-day stress test. If his stress test is abnormal he will be transferred to tertiary care facility Patient CVA-consult to telestroke for recommendations on CVA prevention. Maintain Coumadin dosing, is better today. Going up slowly. Continue with Haley as well. He did check in consultation recommendations from telestroke. Acute kidney injury with creatinine 1.7 times normal for him.-Slowly improving Poorly controlled diabetes mellitus-running more hypoglycemia now. Will hold his long-acting insulin and use just sliding scale Moderate protein calorie malnutrition-diet management Patient could benefit from rehabilitation stay. Will reevaluate bed status once evaluated by telestroke. ?
--- NOTE | 2023-10-10 10:46 | CM.NOTE ---
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 Pt would like script sent to [facility] in [place].
[2023-10-10] MEDS: REGADENOSON 0.4 MG/5 ML SYRINGE IV (11:08)
--- NOTE | 2023-10-10 11:08 | PT.DAILY ---
Physical Therapy Daily Note PT Daily Note/Assess Start: 10/10/23 11:08 Freq: Status: Active Protocol: Document 10/10/23 11:08 OCTAVIA (Rec: 10/10/23 11:08 OCTAVIA [id number]) Visit Not Completed Visit Not Completed Visit Not Completed Due to: Pt out of room Other Reason Visit Not Completed Attempted to see at 0950, 1030 and 1108 - pt out of room for stress test. Physical Therapy Daily Note/Assessment Time In/Time Out Time In 11:08 Time Out 11:08 Pain In Pain N/A Pain Out Pain N/A GG. Functional Abilities and Goals-Complete for Swing Bed Patients Only [id number]. Self-Care [id number]. Mobility
[2023-10-10] MEDS: ENOXAPARIN SODIUM 80 MG/0.8 ML SYRINGE SUBQ ×2 (11:39→21:34)
[2023-10-10] MEDS: CLONIDINE HCL 0.1 MG TABLET 0.05 MG PO ×2 (11:39→21:34)
[2023-10-10] MEDS: OXYBUTYNIN CHLORIDE 5 MG TAB XL 10 MG PO (11:40)
[2023-10-10] MEDS: ASPIRIN 81 MG TAB.CHEW PO (11:40)
[2023-10-10] MEDS: TOPIRAMATE 25 MG TABLET 100 MG PO ×2 (11:40→21:35)
[2023-10-10] MEDS: ISOSORBIDE MONONITRATE 30 MG TAB.ER.24H PO (11:40)
[2023-10-10] MEDS: MONTELUKAST SODIUM 10 MG TABLET PO (11:40)
[2023-10-10] MEDS: CANAGLIFLOZIN 100 MG TABLET PO (11:41)
[2023-10-10] MEDS: TRAMADOL HCL 50 MG TABLET 100 MG PO ×3 (11:41→22:39)
[2023-10-10] MEDS: ACETAMINOPHEN 500 MG TABLET 1000 MG PO ×2 (11:41→17:56)
[2023-10-10] MEDS: NIFEdipine 30 MG TAB.ER.24 90 MG PO (11:41)
[2023-10-10] MEDS: CHOLECALCIFEROL (VITAMIN D3) 25 MCG/1,000 UNITS TABLET 50 MCG PO (11:42)
--- NOTE | 2023-10-10 11:43 | CM.NOTE ---
Called [facility] for DME, message left.
[2023-10-10 11:44] LABS: Glucometer 93 mg/dL (74-106)
--- NOTE | 2023-10-10 15:08 | CM.NOTE ---
Multiple facilities were contacted regarding front wheeled walker, the only place we had luck finding that is open on day of discharge is [facility] in [facility]. They state legally they are unable to bill the patient's Medicare for DME. Pt. is willing to pay for walker out of pocket. Cost per [employer] employee is $86.89 plus tax. Pt. was informed and left note at patient's bedside with details as well as on discharge instructions for nursing to review with patient and upon discharge.
[2023-10-10] MEDS: LACTATED RINGER'S SOLUTION 1,000 ML 50 ML IV (15:38)
--- NOTE | 2023-10-10 16:33 | CM.NOTE ---
2nd Notice of Important Message From Medicare discussed with pt, pt denies questions or concerns.
[2023-10-10 16:41] LABS: Glucometer 104 mg/dL (74-106)
[2023-10-10] MEDS: LOSARTAN POTASSIUM 25 MG TABLET PO (18:02)
[2023-10-10] MEDS: WARFARIN SODIUM 5 MG TABLET 10 MG PO (18:02)
[2023-10-10 20:53] LABS: Glucometer 177 mg/dL (74-106)
[2023-10-10] MEDS: ATORVASTATIN CALCIUM 40 MG TABLET PO (21:34)
[2023-10-10] MEDS: INSULIN ASPART 300 UNIT/3 ML PEN SUBQ (21:36)
[2023-10-11] VITALS (12 sets, daily range): BP systolic 134–147; BP diastolic 78–84; PULSE 48–69; RESP 16–18; TEMP 36.4; O2SAT 91–97
[2023-10-11 06:31] LABS: Basophils Absolute Auto 0.1 10^3/uL (0.0-0.1); Basophils Percent Auto 0.9 % (0.2-2.0); Eosinophils Absolute Auto 0.4 10^3/uL (0.0-0.7); Eosinophils Percent Auto 6.1 % (0.9-7.0); Hematocrit 40.7 % (42.0-54.0); Hemoglobin 13.2 g/dL (14.0-18.0); Immature Granulocytes Abs Auto 0.04 10^3/uL (0.00-0.03); Immature Granulocytes Pct Auto 0.6 % (0.0-0.5); Lymphocytes Absolute Auto 2.7 10^3/uL (1.2-3.8); Lymphocytes Percent Auto 39.5 % (20.5-60.0); Mean Corpuscular HGB Conc 32.4 g/dL (29.9-35.2); Mean Corpuscular Hemoglobin 31.5 pg (25.9-34.0); Mean Corpuscular Volume 97.1 fL (80.0-94.0); Mean Platelet Volume 10.6 fL (9.5-13.5); Monocytes Absolute Auto 0.5 10^3/uL (0.3-0.8); Monocytes Percent Auto 7.5 % (1.7-12.0); Neutrophils Absolute Auto 3.2 10^3/uL (1.4-6.5); Neutrophils Percent Auto 45.4 % (43.0-75.0); Platelet Count 175 10^3/uL (150-450); Red Blood Count 4.19 10^6/uL (4.70-6.10); Red Cell Distribution Width 13.5 % (11.0-15.0); White Blood Count 6.9 10^3/uL (4.0-11.0)
[2023-10-11 06:47] LABS: INR 1.44
[2023-10-11 07:06] LABS: Alanine Aminotransferase 21 U/L (16-63); Albumin Globulin Ratio 0.7; Albumin Level 2.3 g/dL (3.4-5.0); Alkaline Phosphatase 74 U/L (46-116); Anion Gap 7.9; Aspartate Amino Transferase 19 U/L (15-37); BUN Creatinine Ratio 16.3; Bilirubin Total 0.2 mg/dL (0.2-1.0); Calcium 8.6 mg/dL (8.5-10.1); Chloride 111 mmol/L (98-107); Estimated GFR (African America >60 (>=60); Estimated GFR (Non-African Ame 51 (>=60); Globulin 3.3 g/dL; Glucose 102 mg/dL (74-106); Potassium 3.9 mmol/L (3.5-5.1); Sodium 142 mmol/L (136-145); Total Protein 5.6 g/dL (6.4-8.2)
[2023-10-11 09:32] LABS: Glucometer 58 mg/dL (74-106)
[2023-10-11] MEDS: DEXTROSE 50 %-WATER 25 GM/50 ML SYRINGE IV (09:34)
--- NOTE | 2023-10-11 09:55 | PM.DS1 ---
DS: Providers Provider Date of admission: 10/08/23 13:46 Primary care physician: Say Amato MD Consults: 10/08/23 12:54 Consult to Telestroke Routine Reason for consultation: 2 week old stroke 10/08/23 12:58 Occupational Therapy Eval and Treat Routine Reason for consultation: eval and treat Has provider been notified: No Physical Therapy Eval and Treat Routine Reason for consultation: Eval and Treat Has provider been notified: No Speech Therapy Eval and Treat Routine Reason for consultation: Eval and treat Has provider been notified: No 10/09/23 08:04 Consult to Bioinformatics Research Technician Routine Reason for consult:: Longterm 10/09/23 08:12 Consult to Cardiology Routine Reason for consultation: chest pain Has provider been notified: No DS: Diagnosis Discharge Diagnosis (1) CVA (cerebrovascular accident): (2) Expressive aphasia: (3) Diabetes: DS: Summary Hospital Course Hospital Course: Patient was admitted for possible progression of his CVA. Workup for that was negative. He did have some chest pain as a consult to cardiology who recommended a 2-day stress test. We are still waiting for that test to come back today. Once that is returned, likely normal based on labs and EKG, he can be discharged home in stable condition. Follow-up with neurology next week. May need further workup for heart issues as an outpatient. Time Spent with Patient Time attestation: Total time spent providing and/or coordinating discharge services: Exam Constitutional Vital Signs, click to edit/add: Last Vital Signs Temp 97.5 F L 10/11/23 05:34 Pulse 60 10/11/23 07:57 Resp 16 10/11/23 05:34 BP 147/84 H 10/11/23 05:34 Pulse Ox 92 L 10/11/23 05:34 O2 Del Method Room Air 10/11/23 05:34 Documenting provider has reviewed patient's vital signs: yes Common normals: no apparent distress HENMT Common normals: oral mucous membranes not moist Chest Common normals: inspection of chest normal Respiratory Common normals: normal respiratory effort and no retractions Cardio Common normals: regular rate and regular rhythm Neuro Sensorium/orientation: awake, alert and oriented to person Gait (neuro): abnormal gait (See physical therapy notes) DS: Data Data Completed and Pending Labs on day of discharge: Labs from last 24 hours 10/11/23 10/11/23 10/10/23 09:30 06:20 20:52 WBC 6.9 RBC 4.19 L Hgb 13.2 L Hct 40.7 L MCV 97.1 H MCH 31.5 MCHC 32.4 RDW 13.5 Plt Count 175 MPV 10.6 Neut % (Auto) 45.4 Lymph % (Auto) 39.5 [place] % (Auto) 7.5 Eos % (Auto) 6.1 Baso % (Auto) 0.9 Neut # (Auto) 3.2 Lymph # (Auto) 2.7 [place] # (Auto) 0.5 Eos # (Auto) 0.4 Baso # (Auto) 0.1 Abs Immat Gran (auto) 0.04 H Imm/Tot Granulo (auto) 0.6 H PT 15.0 H INR 1.44 Sodium 142 Potassium 3.9 Chloride 111 H Carbon Dioxide 27.0 Anion Gap 7.9 BUN 23.0 H Creatinine 1.41 H Est GFR ( Amer) >60 Est GFR (Non-Af Amer) 51 L BUN/Creatinine Ratio 16.3 Glucose 102 Calcium 8.6 Total Bilirubin 0.2 AST 19 ALT 21 Alkaline Phosphatase 74 NT-Pro-B Natriuret Pep 95.0 Total Protein 5.6 L Albumin 2.3 L Globulin 3.3 Albumin/Globulin Ratio 0.7 POC Glucose 58 L 177 H 10/10/23 10/10/23 16:40 11:43 WBC RBC Hgb Hct MCV MCH MCHC RDW Plt Count MPV Neut % (Auto) Lymph % (Auto) [place] % (Auto) Eos % (Auto) Baso % (Auto) Neut # (Auto) Lymph # (Auto) [place] # (Auto) Eos # (Auto) Baso # (Auto) Abs Immat Gran (auto) Imm/Tot Granulo (auto) PT INR Sodium Potassium Chloride Carbon Dioxide Anion Gap BUN Creatinine Est GFR ( Amer) Est GFR (Non-Af Amer) BUN/Creatinine Ratio Glucose Calcium Total Bilirubin AST ALT Alkaline Phosphatase NT-Pro-B Natriuret Pep Total Protein Albumin Globulin Albumin/Globulin Ratio POC Glucose 104 93 Discharge Plan Discharge Disposition: Home, Self-Care Condition: Fair Discharge Medications: Continued atorvastatin 40 mg tablet 40 mg PO .QD candesartan 8 mg tablet 4 mg PO .QD Rx Instructions: patient states he takes 0.5 tab but hasn't filled since 05/28 clonidine HCl 0.1 mg tablet 0.05 mg PO BID furosemide 40 mg tablet 40 mg PO BID montelukast 10 mg tablet 10 mg PO .QD nifedipine 90 mg tablet extended release 24hr 90 mg PO .QD oxybutynin chloride 10 mg tablet extended release 24hr 10 mg PO .QD pantoprazole 40 mg tablet,delayed release (DR/EC) 40 mg PO .QD potassium chloride 20 mEq tablet extended release 20 meq PO .QD topiramate 50 mg tablet 100 mg PO Q12H tramadol 50 mg tablet 100 mg PO Q12H PRN (Reason: pain) warfarin 5 mg tablet 10 mg PO .QD cetirizine 10 mg tablet 10 mg PO DAILY PRN (Reason: allergy symptoms) cholecalciferol (vitamin D3) [D3-2000] 50 mcg (2,000 unit) capsule 50 mcg PO DAILY Jardiance 10 mg tablet 10 mg PO QDAY indomethacin 50 mg capsule 50 mg PO BID insulin degludec [Tresiba FlexTouch U-100] 100 unit/mL (3 mL) insulin pen 56 unit SUBCUT BID Laboratory Mechanical Technician/Learning Consultant Instructions: to stop at [facility] in [facility] to moss picker front wheeled walker prior to or right after discharge. [facility] [phone] Forms: Portal Instructions
[2023-10-11 10:09] LABS: Glucometer 101 mg/dL (74-106)
[2023-10-11] MEDS: HYDROMORPHONE HCL 0.5 MG/0.5 ML SYRINGE IV (10:12)
--- NOTE | 2023-10-11 10:12 | PT.DAILY ---
Physical Therapy Daily Note PT Daily Note/Assess Start: 10/10/23 11:08 Freq: Status: Active Protocol: Document 10/11/23 10:08 OCTAVIA (Rec: 10/11/23 10:12 OCTAVIA [id number]) Physical Therapy Daily Note/Assessment Time In/Time Out Time In 09:15 Time Out 09:28 Pain In Pain N/A Pain Out Pain N/A Subjective Subjective Pt sitting in BS chair upon arrival. Agrees to PT. Will be going down for stress test soon. Therapeutic Exercise Time Therapeutic Exercise Minutes (minutes) 3 Therapeutic Exercise Units 0 Therapeutic Exercise Treatment Therapeutic Exercise Treatment Seated bilat LE strengthening ex complete while sitting in BS chair 10x ea - prior to standing. Standing marches and hip abd 10x ea. Therapeutic Activity Time Therapeutic Activity Minutes (minutes) 6 Therapeutic Activity Units 1 Therapeutic Activity Treatment Chair Transfer Ability Contact Guard Assist Therapeutic Activity Comments Sit>stand from BS chair to RW CGA. Pt static stands for over 5 min with dizziness reported . Pt able to perform standing marches and hip abd 10x - attempted hip flex and HR and pt is unable/apprehensive. Dizziness does limit session. Pt is returned to BS chair upon completion with call light in reach and needs met. Total Physical Therapy Time Total Therapy Minutes 9 Total Physical Therapy Units 1 Summary Daily Note Summary Fair standing tolerance. Cooperative but apprehensive with some ex. Dizziness limits session due to safety concerns.
[2023-10-11] MEDS: ASPIRIN 81 MG TAB.CHEW PO (10:20)
[2023-10-11] MEDS: TOPIRAMATE 25 MG TABLET 100 MG PO (10:20)
[2023-10-11] MEDS: ISOSORBIDE MONONITRATE 30 MG TAB.ER.24H PO (10:20)
[2023-10-11] MEDS: OXYBUTYNIN CHLORIDE 5 MG TAB XL 10 MG PO (10:20)
[2023-10-11] MEDS: CLONIDINE HCL 0.1 MG TABLET 0.05 MG PO (10:21)
[2023-10-11] MEDS: CANAGLIFLOZIN 100 MG TABLET PO (10:21)
[2023-10-11] MEDS: CHOLECALCIFEROL (VITAMIN D3) 25 MCG/1,000 UNITS TABLET 50 MCG PO (10:21)
[2023-10-11] MEDS: ENOXAPARIN SODIUM 80 MG/0.8 ML SYRINGE SUBQ (10:21)
[2023-10-11] MEDS: NIFEdipine 30 MG TAB.ER.24 90 MG PO (10:21)
[2023-10-11] MEDS: MONTELUKAST SODIUM 10 MG TABLET PO (10:21)
[2023-10-11 10:23] LABS: Glucometer 105 mg/dL (74-106)
[2023-10-11 11:26] LABS: Glucometer 80 mg/dL (74-106)
[2023-10-11] MEDS: LACTATED RINGER'S SOLUTION 1,000 ML 50 ML IV (11:44)
[2023-10-11 12:37] LABS: Glucometer 142 mg/dL (74-106)
[2023-10-11] MEDS: TRAMADOL HCL 50 MG TABLET 100 MG PO (14:35)
[2023-10-11] MEDS: ACETAMINOPHEN 500 MG TABLET 1000 MG PO (14:35)
[2023-10-11 16:10] LABS: Glucometer 189 mg/dL (74-106)
--- NOTE | 2023-10-13 16:21 | CM.DCFOLLOWU ---
1st attempt discharge follow up call made by Jorge Alberto Beltre on 10/13/23.
--- NOTE | 2023-10-14 14:09 | CM.DCFOLLOWU ---
2nd attempt discharge follow up call made by Jorge Alberto Beltre on 10/14/23, no answer at this time.
--- NOTE | 2023-10-15 14:19 | CM.DCFOLLOWU ---
Person spoke with:patient How are you feeling? blood pressure was up and sugars were low, they were checked by the Home Health nurse that came in How is your pain? no pain Did you understand your discharge instructions? yes Do you have any questions about your discharge instructions? no Were you given any prescriptions at discharge? no Were you able to get your prescriptions filled? N/A Do you understand how to take your medications as ordered? yes Do you have any questions about your follow up appointment and do you plan to keep your follow up appointment? no questions, spoke with Dr. Amato's office today in regards to blood pressure and sugars, they will be calling him back within a few hours. Advised to call them if no call is received by 4:00 Is there anything else that you would like to discuss? no Questions/Comments/Concerns/Other:
== END 2023-10-11 17:44 | disposition home or self-care (01) ==
LOC: ER 11:21 → ICU 13:51 → MS 16:32
PROVIDERS: Admitting Provider Family Medicine; Emergency Provider Emergency Medicine; PCP Family Medicine; Visit Provider Family Medicine
DX: R07.9 Chest pain, unspecified (principal); N17.9 Acute kidney failure, unspecified; E44.0 Moderate protein-calorie malnutrition; E11.65 Type 2 diabetes mellitus with hyperglycemia; I69.320 Aphasia following cerebral infarction; I69.354 Hemiplegia and hemiparesis following cerebral infarction affecting left non-dominant side; I13.0 Hypertensive heart and chronic kidney disease with heart failure and stage 1 through stage 4 chronic kidney disease, or unspecified chronic kidney disease; I50.32 Chronic diastolic (congestive) heart failure; N18.9 Chronic kidney disease, unspecified; K21.9 Gastro-esophageal reflux disease without esophagitis; J43.9 Emphysema, unspecified; E78.00 Pure hypercholesterolemia, unspecified; E66.9 Obesity, unspecified; Z68.41 Body mass index [BMI] 40.0-44.9, adult; R42 Dizziness and giddiness; H53.9 Unspecified visual disturbance; Z95.818 Presence of other cardiac implants and grafts; Z79.899 Other long term (current) drug therapy; Z79.01 Long term (current) use of anticoagulants; Z79.4 Long term (current) use of insulin; Z98.890 Other specified postprocedural states; Z90.89 Acquired absence of other organs; Z90.49 Acquired absence of other specified parts of digestive tract; Z96.89 Presence of other specified functional implants; I25.10 Atherosclerotic heart disease of native coronary artery without angina pectoris; G47.33 Obstructive sleep apnea (adult) (pediatric); Z86.718 Personal history of other venous thrombosis and embolism; Z86.711 Personal history of pulmonary embolism
CPT/HCPCS: 36415; 70450; 70496; 70498; 71045; 78452; 80048; 80053; 82140; 82800; 82948; 83605; 83735; 83880; 84436; 84443; 84481; 84484; 85025; 85610; 85730; 92507; 92522; 92523; 92610; 93005; 93017; 93306; 94667; 94668; 94761; 96372; 96374; 97140; 97162; 97530; 97535; 99285; A9500; G0378; J1170; J1650; J2785; Q3014; Q9967

== ENCOUNTER 2023-10-16 14:54 | Outpatient (RCR) | payer MEDICARE, SELFPAY | END 2023-11-05 17:12 | disposition home or self-care (01) | LOC: MM 14:54 | PROVIDERS: PCP Family Medicine; Visit Provider Internal Medicine | DX: Z51.81 Encounter for therapeutic drug level monitoring (principal); Z79.01 Long term (current) use of anticoagulants; I82.409 Acute embolism and thrombosis of unspecified deep veins of unspecified lower extremity | CPT/HCPCS: 85610; G0463 ==

== ENCOUNTER 2023-11-06 01:50 | Outpatient (RCR) | payer MEDICARE, SELFPAY | END 2023-12-04 17:21 | disposition home or self-care (01) | LOC: MM 01:50 | PROVIDERS: PCP Family Medicine; Visit Provider Internal Medicine | DX: Z51.81 Encounter for therapeutic drug level monitoring (principal); Z79.01 Long term (current) use of anticoagulants; I82.409 Acute embolism and thrombosis of unspecified deep veins of unspecified lower extremity | CPT/HCPCS: 85610; G0463 ==

== ENCOUNTER 2023-11-11 07:54 | Outpatient (OUT) | payer MEDICARE, SELFPAY ==
--- OUTSIDE RECORDS SUMMARY | 2023-11-11 07:59 | XMS_ITS | CCD ---
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 antibody test is used as an aid in diagnosis of myasthenia gravis. A negative result cannot exclude myasthenia gravis. Clinical correlation is required. Performed By: #### A CHRAB ####[facility] [id number] [place] [address] [place] Acetylcholine receptor binding Ab (S) [Moles/Vol] <0.02 Normal <0.21 [facility] Comment on above: Order Comment: Sherry hu Type: BLOOD SPECIMENOrdering Facility: [facility] Address: [address] [place] [address] Performed By: #### A CHRAB ####[facility] [id number] [place] [address] [place] ACETYLCHOLINE REC BLOCKING A Bon 09-19-2023 ACETYLCHOLINE BLOCKING, QUAL Negative Normal Negative [facility] Comment on above: Order Comment: Sherry hu Type: BLOOD SPECIMEN Ordering Facility: [facility] Address: [address] [place] [address] Result Comment: Anti -acetylcholine receptor blocking antibody test is used as an aid in diagnosis of myasthenia gravis. A negative result cannot exclude myasthenia gravis. Clinical correlation is required. Performed By: #### A CEBAB #### [facility] CLIA [id number] [address] [place] [address] [place] Acetylcholine receptor blocking Ab/Acetylcholine Ab.total (S) [Molar fraction] <13 Normal <21 [facility] Comment on above: Order Comment: Sherry hu Type: BLOOD SPECIMEN [facility]ing Facility: [facility] Address: [address] [place] [address] Performed By: #### A CEBAB #### [facility] CLIA [id number] [facility] [place] [id number] [facility] CNOVon 09-19-2023 CNOV Office Visit (NREUS2 ) ANDRY PIERRE ([id number]) 1960 M Date Time Provider Department 09/19/23 11:00 AM SHANE PARHAM NREUS2 During your visit today, we recorded the following information about you: Pulse Blood pressure 82/minute 133/69 Shane Parham PA-C 09/19/2023 4:39 PM Signed [facility] - FOLLOW UP EVALUATION Luis Mccormick MD [address] [place] [id number] Dear Luis Mccormick MD: I had the [...] Row Office Visit from 09/19/2023 in [facility]rological [facility] from 01/21/2022 in Pre Anest[facility] [...] it Current Outpatient Medications Medication Sig Insulin [place], Disposable, (BD INSULIN PEN NEEDLE UF) 29 [...] 1 tab (more content not included)... Normal [facility] 09-12-2023 [facility] Telephone (NREUS2) ANDRY PIERRE ([id number]) 1960 Date Time Provider Department 09/12/23 SHANE PARHAM NREUS2 During your visit today, we recorded the following information about you: Ry Corea 09/12/2023 10:46 AM Signed NI PHONE Name [...] Pt called to report he spoke with [employer] rep who determined remote was bad-pt received remote overnight. Pt still shaking (2 months) and stuttering for for 2 months, dizzy and can hardly walk - [phone]. Darlene Bhatia 09/16/2023 4:24 PM Signed Patient [...] with infarction (more content not included)... Normal [facility] Office Visiton 08-19-2023 Follow-up visit [id number] Joanie Pierre 1960 M Date Provider Department Center 08/19/2023 Luh6-SURI BANDA [facility] Family History Problem Relation Age of Onset Coronary artery disease Mother Coronary artery disease Father Family Status - Relation Status Age at Mother Father Level of Service:49233 [place] OFFICE/OUTPATIENT ESTABLISHED MOD MDM 30-39 MIN [facility] 36on 07-23-2023 36 Called to schedule c onsult to discuss [facility] SCS. Pt had appointment that he had missed with pain management to discuss this. [employer] rep called pt after missed appointment and pt asked if anyone in our facility specialized in DBS. Pt currently has [employer] DBS and would like to follow up with Dr. Lloyd instead. VM was left for pt to return my call to schedule if he chooses. [facility] José Antonio 07-07-2023 CNPN Telephone (NREUS2) ANDRY PIERRE ([id number]) 1960 M Date Time Provider Department 07/07/23 GLENN ROSE NRTIFFANYS2 During your visit today, we recorded the following information about you: Sadie Hawkins 07/07/2023 2:49 PM Signed Via fax recd request from Dr. Kumar for surgery clearance that pt may turn off DBS during radiofrequency ablation (copy of request available in scanned docs). Kerwin if okay I can process request in Docusign for Dr. Rose's signature (tp). Kerwin Brito RN 07/10/2023 9:15 AM Addendum Spoke with hr representative from Dr. Kumar's office, they report [...] Status:Closed by KERWIN BRITO on 07/10/23 Normal [facility] Office Visiton 05-21-2023 Follow-up visit [id number] Joanie Pierre 1960 M Date Provider Department Center 05/21/2023 Myke-SURI BANDA [facility] Family History Problem Relation Age of Onset Coronary artery disease Mother Coronary artery disease Father Family Status - Relation Status Age at Mother Father Level of Service:00849 [place] OFFICE/OUTPATIENT ESTABLISHED MOD MDM 30-39 MIN Reason for Visit and Comments: Follow-up [950081] Normal [facility] INSULINon 02-21-2023 Insulin 9.5 uIU/mL Normal 2.6-24.9 [facility] Comment on above: Performed By: #### I NSULIN #### [facility] [address] [address] [address] Miah Buck XR LSPINE 2_3 VIEWSon [...] ROCK AVELAR Date: 2023-02-21 06:19 Normal [facility] BNPon 02-20-2023 Natriuretic peptide B (Bld) [Mass/Vol] 52.0 pg/mL Normal <=900.0 [facility] Comment on above: Performed By: #### M G, CMP, BNP, TSH, CRP #### [facility] [address] [address] [address] Miah Buck CBC AUTO DIFFon 02-20-2023 BASO # 0.1 103/ul Normal 0.0-0.1 [facility] Comment on above: Performed By: #### A 1C #### [facility] [address] [place] [address] Dr. Miah Buck Basophils/100 WBC (Bld) 0.8 % Normal 0.2-2.0 [facility] Comment on above: Performed By: #### A 1C #### [facility] [address] [place] [address] Dr. Miah Buck EO # 0.3 103/ul Normal 0.0-0.7 [facility] Comment on above: Performed By: #### A 1C #### [facility] [address] [place] [address] Dr. Miah Buck Eosinophils/100 WBC (Bld) 3.5 % Normal 0.9-7.0 [facility] Comment on above: Performed By: #### A 1C #### [facility] [address] [place] [address] Dr. Miah Buck Erythrocyte distribution width (RBC) [Ratio] 12.7 % Normal 11.0-15.0 [facility] Comment on above: Performed By: #### A 1C #### [facility] [address] [place] [address] Dr. Miah Buck Hematocrit (Bld) [Volume fraction] 48.8 % Normal 42.0-54.0 [facility] Comment on above: Performed By: #### A 1C #### [facility] [address] [place] [address] Dr. Miah Buck Hemoglobin (Bld) [Mass/Vol] 16.8 g/dL Normal 14.0-18.0 [facility] Comment on above: Performed By: #### A 1C #### [facility] [address] [place] [address] Dr. Miah Buck IG # 0.04 10e3/ul Critically high 0.00-0.03 [facility] Comment on above: Performed By: #### A 1C #### [facility] [address] [place] [address] Dr. Miah Buck IG % 0.6 % Critically high 0.0-0.5 [facility] Comment on above: Performed By: #### A 1C #### [facility] [address] [place] [address] Dr. Miah Buck LYMPH # 1.9 103/ul Normal 1.2-3.8 [facility] Comment on above: Performed By: #### A 1C #### [facility] [address] [place] [address] Dr. Miah Buck Lymphocytes/100 WBC (Bld) 27.0 % Normal 20.5-60.0 [facility] Comment on above: Performed By: #### A 1C #### [facility] [address] [place] [address] Dr. Miah Buck MANUAL DIFF REQ NO Normal [facility] Comment on above: Performed By: #### A 1C #### [facility] [address] [place] [address] Dr. Miah Buck MCH (RBC) [Entitic mass] 31.5 pg Normal 25.9-34.0 [facility] Comment on above: Performed By: #### A 1C #### [facility] [address] [place] [address] Dr. Miah Buck MCHC (RBC) [Mass/Vol] 34.4 g/dL Normal 29.9-35.2 [facility] Comment on above: Performed By: #### A 1C #### [facility] [address] [place] [address] Dr. Miah Buck MCV (RBC) [Entitic vol] 91.4 fL Normal 80.0-94.0 [facility] Comment on above: Performed By: #### A 1C #### [facility] [address] [place] [address] Dr. Miah Buck MONO # 0.4 103/ul Normal 0.3-0.8 [facility] Comment on above: Performed By: #### A 1C #### [facility] [address] [place] [address] Dr. Miah Buck Monocytes/100 WBC (Bld) 5.5 % Normal 1.7-12.0 [facility] Comment on above: Performed By: #### A 1C #### [facility] [address] [place] [address] Dr. Miah Buck NEUT # 4.5 103/ul Normal 1.4-6.5 [facility] Comment on above: Performed By: #### A 1C #### [facility] [address] [place] [address] Dr. Miah Buck Neutrophils/100 WBC (Bld) 62.6 % Normal 43.0-75.0 [facility] Comment on above: Performed By: #### A 1C #### [facility] [address] [place] [address] Dr. Miah Buck Platelet mean volume (Bld) [Entitic vol] 10.6 fL Normal 9.5-13.5 [facility] Comment on above: Performed By: #### A 1C #### [facility] [address] [place] [address] Dr. Miah Buck PLT 204 103/ul Normal 150-450 [facility] Comment on above: Performed By: #### A 1C #### [facility] [address] [place] [address] Dr. Miah Buck RBC 5.34 106/ul Normal 4.70-6.10 [facility] Comment on above: Performed By: #### A 1C #### [facility] [address] [place] [address] Dr. Miah Buck WBC 7.2 103/ul Normal 4.0-11.0 [facility] Comment on above: Performed By: #### A 1C #### [facility] [address] [place] [address] Dr. Miah Buck DIRECT LDLon 02-20-2023 Cholesterol in LDL [Mass/Vol] 173 mg/dL Normal [facility] Comment on above: Performed By: #### A 1C #### [facility] [address] [place] [address] Dr. Miah Buck DLDL NORMAL SEE BELOW Normal [facility] Comment on above: Result Comment: <100 mg/dl OPTIMAL 100 - 129 mg/dl NEAR OR ABOVE OPTIMAL 130 - 159 mg/dl BORDERLINE HIGH 160 - 189 mg/dl HIGH >190 mg/dl VERY HIGH Performed By: #### A 1C #### [facility] [address] [address] [address] Miah Buck FREE T3on 02-20-2023 FREE T3 1.75 pg/mlL Critically low 2.18-3.98 [facility] Comment on above: Performed By: #### A 1C #### [facility] [address] [address] [address] Miah Buck GLYCOHEMOGLOBIN A1Con 2022 ADA RECOMMENDATION SEE BELOW Normal [facility] Comment on above: Result Comment: ADA RECOMMENDED LIMIT 4.0 - 6.0 ADA THERAPEUTIC TARGET < 7.0 ACTION SUGGESTED > 7.0 Performed By: #### A 1C #### [facility] [address] [place] [address] Dr. Miah Buck Glucose [Mass/Vol] 298 mg/dL Normal [facility] Comment on above: Performed By: #### A 1C #### [facility] [address] [place] [address] Dr. Miah Buck HbA1c (Bld) [Mass fraction] 12.0 % Critically high 4.5-6.2 [facility] Comment on above: Performed By: #### A 1C #### [facility] [address] [place] [address] Dr. Miah Buck LIPID PROFILEon 02-20-2023 CHOL-HDL RATIO NORM SEE BELOW Normal [facility] Comment on above: Result Comment: 3.3 - 4.4 LOW RISK 4.4 - 7.1 AVERAGE RISK 7.1 - 11.0 MODERATE RISK >11.0 HIGH RISK Performed By: #### A 1C #### [facility] [address] [address] [address] Miah Buck Cholesterol [Mass/Vol] 303 mg/dL Critically high <=200 [facility] Comment on above: Performed By: #### A 1C #### [facility] [address] [address] [address] Miah Buck Cholesterol in HDL [Mass/Vol] 33 mg/dL Critically low 40-60 [facility] Comment on above: Performed By: #### A 1C #### [facility] [address] [address] [address] Miah Buck Cholesterol.total/ Cholesterol in HDL [Mass ratio] 9.2 {ratio} Normal [facility] Comment on above: Performed By: #### A 1C #### [facility] [address] [address] [address] Miah Buck HDL NORMAL > or = 60 mg/dl - LO W CARDIOVASCULAR RISK <40 mg/dl - HIGH CARDIOVASCULAR RISK Normal [facility] Comment on above: Performed By: #### A 1C #### [facility] [address] [address] [address] Miah Buck Triglyceride [Mass/Vol] 454 mg/dL Critically high <=150 [facility] Comment on above: Performed By: #### A 1C #### [facility] [address] [address] [address] Miah Buck VLDL CALC 90.8 mg/dL Normal [facility] Comment on above: Performed By: #### A 1C #### [facility] [address] [address] [address] Miah Buck Office Visiton 02-20-2023 Follow-up visit [id number] Joanie Pierre 1960 M Date Provider Department Center 02/20/2023 Myke-SURI BANDA [facility] Family History Problem Relation Age of Onset Coronary artery disease Mother Coronary artery disease Father Family Status - Relation Status Age at Mother Father Level of Service:63790 [place] OFFICE/OUTPATIENT ESTABLISHED MOD MDM 30-39 MIN Normal [facility] PROF 14(COMP METB)on 023 Albumin [Mass/Vol] 3.5 g/dL Normal 3.4-5.0 [facility] Comment on above: Performed By: #### A 1C #### [facility] [address] [address] [address] Miah Buck Albumin/Globulin [Mass ratio] 0.7 {ratio} Normal [facility] Comment on above: Performed By: #### A 1C #### [facility] [address] [place] [address] Dr. Miah Buck ALP [Catalytic activity/Vol] 146 U/L Critically high 46-116 [facility] Comment on above: Performed By: #### A 1C #### [facility] [address] [address] [address] Miah Buck ALT [Catalytic activity/Vol] 40 U/L Normal 16-63 [facility] Comment on above: Performed By: #### A 1C #### [facility] [address] [place] [address] Dr. Miah Buck Anion gap [Moles/Vol] 13.8 mmol/L Normal [facility] Comment on above: Performed By: #### A 1C #### [facility] [address] [place] [address] Dr. Miah Buck AST [Catalytic activity/Vol] 19 U/L Normal 15-37 [facility] Comment on above: Performed By: #### A 1C #### [facility] [address] [place] [address] Dr. Miah Buck Bilirubin [Mass/Vol] 0.4 mg/dL Normal 0.2-1.0 [facility] Comment on above: Performed By: #### A 1C #### [facility] [address] [place] [address] Dr. Miah Buck Calcium [Mass/Vol] 9.1 mg/dL Normal 8.5-10.1 [facility] Comment on above: Performed By: #### A 1C #### [facility] [address] [place] [address] Dr. Miah Buck Chloride [Moles/Vol] 99 mmol/L Normal 98-107 [facility] Comment on above: Performed By: #### A 1C #### [facility] [address] [place] [address] Dr. Miah Buck CO2 [Moles/Vol] 27.6 mmol/L Normal 21.0-32.0 [facility] Comment on above: Performed By: #### A 1C #### [facility] [address] [place] [address] Dr. Miah Buck Creatinine [Mass/Vol] 1.88 mg/dL Critically high 0.70-1.30 [facility] Comment on above: Performed By: #### A 1C #### [facility] [address] [place] [address] Dr. Miah Buck EGFR-AF PALESTINIAN 44 mL/min/1.73m2 Critically low >=60 [facility] Comment on above: Performed By: #### A 1C #### [facility] [address] [address] [address] Miah Buck EGFR-NON AF PALESTINIAN 37 mL/min/1.73m2 Critically low >=60 [facility] Comment on above: Performed By: #### A 1C #### [facility] [address] [place] [address] Dr. Miah Buck Globulin (S) [Mass/Vol] 4.7 g/dL Normal [facility] Comment on above: Performed By: #### A 1C #### [facility] [address] [place] [address] Dr. Miah Buck Glucose [Mass/Vol] 524 mg/dL Critically high 74-106 [facility] Comment on above: Performed By: #### A 1C #### [facility] [address] [place] [address] Dr. Miah Buck Potassium [Moles/Vol] 4.4 mmol/L Normal 3.5-5.1 [facility] Comment on above: Performed By: #### A 1C #### [facility] [address] [place] [address] Dr. Miah Buck Protein [Mass/Vol] 8.2 g/dL Normal 6.4-8.2 [facility] Comment on above: Performed By: #### A 1C #### [facility] [address] [place] [address] Dr. Miah Buck Sodium [Moles/Vol] 136 mmol/L Normal 136-145 [facility] Comment on above: Performed By: #### A 1C #### [facility] [address] [place] [address] Dr. Miah Buck Urea nitrogen [Mass/Vol] 21.0 mg/dL Critically high 7.0-18.0 [facility] Comment on above: Performed By: #### A 1C #### [facility] [address] [place] [address] Dr. Miah Buck Urea nitrogen/Creatinin e [Mass ratio] 11.2 mg/mg Normal [facility] Comment on above: Performed By: #### A 1C #### [facility] [address] [place] [address] Dr. Miah Buck T4on 02-20-2023 T4 [Mass/Vol] 7.80 ug/dL Normal 4.50-12.10 [facility] Comment on above: Performed By: #### A 1C #### [facility] [address] [place] [address] Dr. Miah Buck TSHon 02-20-2023 TSH 0.740 uIU/mL Normal 0.358-3.740 [facility] Comment on above: Performed By: #### A 1C #### [facility] [address] [place] [address] Dr. Miah Buck URIC ACID SERUMon 02-20-2023 Urate [Mass/Vol] 8.2 mg/dL Critically high 3.5-7.2 [facility] Comment on above: Performed By: #### A 1C #### [facility] [address] [place] [address] Dr. Miah Buck Office Visiton 01-17-2023 Follow-up visit [id number] Joanie Pierre 1960 M Date Provider Department Center 01/17/2023 SOFYA MUNIZ [facility] Family History Problem Relation Age of Onset Coronary artery disease Mother Coronary artery disease Father Family Status - Relation Status Age at Mother Father Level of Service:83956 [place] OFFICE/OUTPATIENT ESTABLISHED LOW MDM 20-29 MIN Reason for Visit and Comments: Wound Check [[id number]] Normal [facility] HPon 01-09-2023 HP -------- Attestation signed [...] there are no changes to the H&P. Normal [facility] Orders Onlyon 01-09-2023 Orders Only [id number] Joanie Pierre 1960 M Date Provider Department Center 01/09/2023 TALI RAE [facility] Family History Problem Relation Age of Onset Coronary artery disease Mother Coronary artery disease Father Family Status - Relation Status Age at Mother Father Normal [facility] CREATININEon 01-07-2023 Creatinine [Mass/Vol] 2.09 mg/dL Critically high 0.70-1.30 [facility] Comment on above: Performed By: #### M G, CMP, BNP, TSH, CRP #### [facility] [address] [address] [address] Miah Buck EGFR-AF PALESTINIAN 39 mL/min/1.73m2 Critically low >=60 [facility] Comment on above: Performed By: #### M G, CMP, BNP, TSH, CRP #### [facility] [address] [address] [address] Miah Buck EGFR-NON AF PALESTINIAN 32 mL/min/1.73m2 Critically low >=60 [facility] Comment on above: Performed By: #### M G, CMP, BNP, TSH, CRP #### [facility] [address] [address] [address] ABD/PELV W CONon [...] ROCK AVELAR Date: 2023-01-07 10:18 Normal [facility] Office Visiton 01-06-2023 Follow-up visit [id number] Joanie Pierre 1960 M Date Provider Department Center 01/06/2023 Myke-SURI BANDA [facility] Family History Problem Relation Age of Onset Coronary artery disease Mother Coronary artery disease Father Family Status - Relation Status Age at Mother Father Level of Service:05528 [place] OFFICE/OUTPATIENT ESTABLISHED MOD MDM 30-39 MIN Normal [facility] Covid-19 PCR (CVDTB)on SARS-CoV-2 (COVID-19) RNA EMMY+probe Ql (Unsp spec) Not detected Normal NOT DETECTED [facility] Comment on above: Result Comment: This test is not yet approved or cleared by the [place] FDA. When there are no FDA-approved or cleared tests available, and other criteria are met, FDA can make tests available under an emergency access mechanism called an Emergency Use Authorization (EUA). The EUA for this test is supported by the [place] of Health and Human Service's (HHS's) declaration [...] M G, CMP, BNP, TSH, CRP #### [facility] [address] [place] [address] HEAD WO CONon [...] by: LOS BAIRES Date: 2022-05-29 09:41 Normal [facility] CT NECK ST WO CONon 05-29-20 CT [...] ALISA HOLMAN Date: 2022-05-29 10:26 Normal [facility] VIT D 25-OH [facility]on 2021 Vitamin D, 25-Hydroxy 27.6 ng/mL Critically low 30.0-100.0 [facility] Comment on above: Result Comment: Rima min D deficiency has been defined by the [place] of [employer] and an Endocrine Society practice guideline as a level of serum 25-OH vitamin D less than 20 ng/mL (1,2). The Endocrine Society went on to further define vitamin D insufficiency as a level between 21 and 29 ng/mL (2). 1. IOM ([place] of Medicine). 2010. Dietary reference intakes for calcium and D. [place]: The National Academies Press. 2. Su ELLIS, Agapito HOSKINS, Mason KAUFMAN, et al. Evaluation, treatment, and prevention of vitamin D deficiency: an Endocrine Society clinical practice guideline. JCEM. 2010; 96(7):1911-30. Performed By: #### V ITADLC #### [facility] [address] [address] [address] Miah Buck XR CHEST 2 Von [...] ROCK AVELAR Date: 2022-05-24 07:37 Normal [facility] BNPon 05-23-2022 Natriuretic peptide B (Bld) [Mass/Vol] 53.0 pg/mL Normal <=900.0 [facility] Comment on above: Performed By: #### M G, CMP, BNP, TSH, CRP #### [facility] [address] [address] [address] Miah Buck CBC AUTO DIFFon 05-23-2022 BASO # 0.1 103/ul Normal 0.0-0.1 [facility] Comment on above: Performed By: #### A 1C #### [facility] [address] [address] [address] Miah Buck Basophils/100 WBC (Bld) 0.7 % Normal 0.2-2.0 [facility] Comment on above: Performed By: #### A 1C #### [facility] [address] [address] [address] Miah Buck EO # 0.3 103/ul Normal 0.0-0.7 [facility] Comment on above: Performed By: #### A 1C #### [facility] [address] [address] [address] Miah Buck Eosinophils/100 WBC (Bld) 4.0 % Normal 0.9-7.0 [facility] Comment on above: Performed By: #### A 1C #### [facility] [address] [place] [address] Dr. Miah Buck Erythrocyte distribution width (RBC) [Ratio] 13.4 % Normal 11.0-15.0 [facility] Comment on above: Performed By: #### A 1C #### [facility] [address] [place] [address] Dr. Miah Buck Hematocrit (Bld) [Volume fraction] 46.1 % Normal 42.0-54.0 [facility] Comment on above: Performed By: #### A 1C #### [facility] [address] [place] [address] Dr. Miah Buck Hemoglobin (Bld) [Mass/Vol] 15.5 g/dL Normal 14.0-18.0 [facility] Comment on above: Performed By: #### A 1C #### [facility] [address] [place] [address] Dr. Miah Buck IG # 0.03 10e3/ul Normal 0.00-0.03 [facility] Comment on above: Performed By: #### A 1C #### [facility] [address] [place] [address] Dr. Miah Buck IG % 0.4 % Normal 0.0-0.5 [facility] Comment on above: Performed By: #### A 1C #### [facility] [address] [place] [address] Dr. Miah Buck LYMPH # 2.0 103/ul Normal 1.2-3.8 [facility] Comment on above: Performed By: #### A 1C #### [facility] [address] [place] [address] Dr. Miah Buck Lymphocytes/100 WBC (Bld) 28.1 % Normal 20.5-60.0 [facility] Comment on above: Performed By: #### A 1C #### [facility] [address] [place] [address] Dr. Miah Buck MANUAL DIFF REQ NO Normal [facility] Comment on above: Performed By: #### A 1C #### [facility] [address] [place] [address] Dr. Miah Buck MCH (RBC) [Entitic mass] 31.8 pg Normal 25.9-34.0 [facility] Comment on above: Performed By: #### A 1C #### [facility] [address] [place] [address] Dr. Miah Buck MCHC (RBC) [Mass/Vol] 33.6 g/dL Normal 29.9-35.2 [facility] Comment on above: Performed By: #### A 1C #### [facility] [address] [place] [address] Dr. Miah Buck MCV (RBC) [Entitic vol] 94.7 fL Critically high 80.0-94.0 [facility] Comment on above: Performed By: #### A 1C #### [facility] [address] [place] [address] Dr. Miah Buck MONO # 0.5 103/ul Normal 0.3-0.8 [facility] Comment on above: Performed By: #### A 1C #### [facility] [address] [place] [address] Dr. Miah Buck Monocytes/100 WBC (Bld) 7.1 % Normal 1.7-12.0 [facility] Comment on above: Performed By: #### A 1C #### [facility] [address] [place] [address] Dr. Miah Buck NEUT # 4.3 103/ul Normal 1.4-6.5 [facility] Comment on above: Performed By: #### A 1C #### [facility] [address] [place] [address] Dr. Miah Buck Neutrophils/100 WBC (Bld) 59.7 % Normal 43.0-75.0 [facility] Comment on above: Performed By: #### A 1C #### [facility] [address] [place] [address] Dr. Miah Buck Platelet mean volume (Bld) [Entitic vol] 10.6 fL Normal 9.5-13.5 [facility] Comment on above: Performed By: #### A 1C #### [facility] [address] [address] [address] Miah Buck PLT 209 103/ul Normal 150-450 [facility] Comment on above: Performed By: #### A 1C #### [facility] [address] [address] [address] Miah Buck RBC 4.87 106/ul Normal 4.70-6.10 [facility] Comment on above: Performed By: #### A 1C #### [facility] [address] [address] [address] Miah Buck WBC 7.2 103/ul Normal 4.0-11.0 [facility] Comment on above: Performed By: #### A 1C #### [facility] [address] [place] [address] Dr. Miah Buck CRPon 05-23-2022 CRP 1.0 mg/dL Normal <=1.0 [facility] Comment on above: Performed By: #### M G, CMP, BNP, TSH, CRP #### [facility] [address] [address] [address] Miah Buck ECHOCARDIO M/2D COMPLETEon 0 05-23-2022 ECHOCARDIO M/2D COMPLETE Patient: ANDRY PIERRE Exam Date: 05/23/2022 : 1960 Gender:M Ordering : SOFYA HIDALGO [facility] Admission #: [id number] Family : DR LUIS MCCORMICK . Order #: [id number] CLICK HERE TO VIEW EXAM ECHOCARDIOGRAM REPORT [...] Pearce M.D. on 05/23/2022 at 18:40 Normal [facility] MAGNESIUMon 05-23-2022 Magnesium [Mass/Vol] 2.3 mg/dL Normal 1.8-2.4 [facility] Comment on above: Performed By: #### M G, CMP, BNP, TSH, CRP #### [facility] [address] [place] [address] Dr. Miah Buck PROF 14(COMP METB)on 022 Albumin [Mass/Vol] 3.6 g/dL Normal 3.4-5.0 [facility] Comment on above: Performed By: #### M G, CMP, BNP, TSH, CRP #### [facility] [address] [address] [address] Miah Buck Albumin/Globulin [Mass ratio] 0.9 {ratio} Normal [facility] Comment on above: Performed By: #### M G, CMP, BNP, TSH, CRP #### [facility] [address] [address] [address] Miah Buck ALP [Catalytic activity/Vol] 113 U/L Normal 46-116 [facility] Comment on above: Performed By: #### M G, CMP, BNP, TSH, CRP #### [facility] [address] [address] [address] Miah Buck ALT [Catalytic activity/Vol] 34 U/L Normal 16-63 [facility] Comment on above: Performed By: #### M G, CMP, BNP, TSH, CRP #### [facility] [address] [address] [address] Miah Buck Anion gap [Moles/Vol] 10.7 mmol/L Normal [facility] Comment on above: Performed By: #### M G, CMP, BNP, TSH, CRP #### [facility] [address] [place] [address] Dr. Miah Buck AST [Catalytic activity/Vol] 23 U/L Normal 15-37 [facility] Comment on above: Performed By: #### M G, CMP, BNP, TSH, CRP #### [facility] [address] [place] [address] Dr. Miah Buck Bilirubin [Mass/Vol] 0.3 mg/dL Normal 0.2-1.0 [facility] Comment on above: Performed By: #### M G, CMP, BNP, TSH, CRP #### [facility] [address] [address] [address] Miah Buck Calcium [Mass/Vol] 8.9 mg/dL Normal 8.5-10.1 [facility] Comment on above: Performed By: #### M G, CMP, BNP, TSH, CRP #### [facility] [address] [place] [address] Dr. Miah Buck Chloride [Moles/Vol] 105 mmol/L Normal 98-107 [facility] Comment on above: Performed By: #### M G, CMP, BNP, TSH, CRP #### [facility] [address] [address] [address] Miah Buck CO2 [Moles/Vol] 26.5 mmol/L Normal 21.0-32.0 [facility] Comment on above: Performed By: #### M G, CMP, BNP, TSH, CRP #### [facility] [address] [place] [address] Dr. Miah Buck Creatinine [Mass/Vol] 1.73 mg/dL Critically high 0.70-1.30 [facility] Comment on above: Performed By: #### M G, CMP, BNP, TSH, CRP #### [facility] [address] [place] [address] Dr. Miah Buck EGFR-AF PALESTINIAN 49 mL/min/1.73m2 Critically low >=60 [facility] Comment on above: Performed By: #### M G, CMP, BNP, TSH, CRP #### [facility] [address] [place] [address] Dr. Miah Buck EGFR-NON AF PALESTINIAN 40 mL/min/1.73m2 Critically low >=60 [facility] Comment on above: Performed By: #### M G, CMP, BNP, TSH, CRP #### [facility] [address] [place] [address] Dr. Miah Buck Globulin (S) [Mass/Vol] 4.0 g/dL Normal [facility] Comment on above: Performed By: #### M G, CMP, BNP, TSH, CRP #### [facility] [address] [place] [address] Dr. Miah Buck Glucose [Mass/Vol] 285 mg/dL Critically high 74-106 T [facility] Comment on above: Performed By: #### M G, CMP, BNP, TSH, CRP #### [facility] [address] [place] [address] Dr. Miah Buck Potassium [Moles/Vol] 4.2 mmol/L Normal 3.5-5.1 [facility] Comment on above: Performed By: #### M G, CMP, BNP, TSH, CRP #### [facility] [address] [place] [address] Dr. Miah Buck Protein [Mass/Vol] 7.6 g/dL Normal 6.4-8.2 [facility] Comment on above: Performed By: #### M G, CMP, BNP, TSH, CRP #### [facility] [address] [place] [address] Dr. Miah Buck Sodium [Moles/Vol] 138 mmol/L Normal 136-145 [facility] Comment on above: Performed By: #### M G, CMP, BNP, TSH, CRP #### [facility] [address] [place] [address] Dr. Miah Buck Urea nitrogen [Mass/Vol] 23.0 mg/dL Critically high 7.0-18.0 [facility] Comment on above: Performed By: #### M G, CMP, BNP, TSH, CRP #### [facility] [address] [place] [address] Dr. Miah Buck Urea nitrogen/Creatinin e [Mass ratio] 13.3 mg/mg Normal [facility] Comment on above: Performed By: #### M G, CMP, BNP, TSH, CRP #### [facility] [address] [place] [address] Dr. Miah Buck TSHon 05-23-2022 TSH 0.714 uIU/mL Normal 0.358-3.740 [facility] Comment on above: Performed By: #### M G, CMP, BNP, TSH, CRP #### [facility] [address] [place] [address] Dr. Miah Buck VITAMIN B12on 05-23-2022 Cobalamin (Vitamin B12) [Mass/Vol] 930.0 pg/mL Normal 193.0-986.0 [facility] Comment on above: Performed By: #### V ITB12 #### [facility] [address] [place] [address] Dr. Miah Buck BASIC METABOLIC PANELon -2 Calcium [Mass/Vol] 8.3 mg/dL Low 8.6-10.3 [facility] Comment on above: Order Comment: No: D o not add to previous draw Performed By: #### 1 0070, 46795, 63074, 96231 #### [facility] [address] [place] [address], [facility] Chloride [Moles/Vol] 105 mmol/L Normal 98-107 [facility] Comment on above: Order Comment: No: D o not add to previous draw Performed By: #### 1 0070, 41322, 11155, 10040 #### [facility] [address] [place] [address], [facility] CO2 [Moles/Vol] 22 mmol/L Normal 21-31 [facility] Comment on above: Order Comment: No: D o not add to previous draw Performed By: #### 1 0070, 24980, 14875, 96183 #### [facility] [address] [place] [address], [facility] Creatinine [Mass/Vol] 1.31 mg/dL High 0.70-1.30 [facility] Comment on above: Order Comment: No: D o not add to previous draw Performed By: #### 1 0070, 61456, 33630, 62100 #### [facility] [address] [place] [address], [facility] eGFR- non- 56 ml/min/1.73sq m Abnormal >60 [facility] Comment on above: Order Comment: No: D o not add to previous draw Performed By: #### 1 0070, 21622, 35309, 71836 #### [facility] [address] [place] [id number], [facility] GFR/1.73 sq M.predicted among blacks MDRD (S/P/Bld) [Vol rate/Area] mL/min/{1.73_m2} Normal >60 [facility] Comment on above: Order Comment: No: D o not add to previous draw Performed By: #### 1 0070, 95989, 48004, 51719 #### [facility] [address] [place] [address], [place] Glucose [Mass/Vol] 231 mg/dL High 70-100 [facility] Comment on above: Order Comment: No: D o not add to previous draw Performed By: #### 1 0070, 03195, 76800, 27803 #### [facility] [address] Potassium [Moles/Vol] 3.6 mmol/L Normal 3.5-5.1 [facility] Comment on above: Order Comment: No: D o not add to previous draw Performed By: #### 1 0070, 77129, 51083, 04910 #### [facility] [address] [facility] [address] Sodium [Moles/Vol] 139 mmol/L Normal 136-145 [facility] Comment on above: Order Comment: No: D o not add to previous draw Performed By: #### 1 0070, 51775, 33830, 15730 #### [facility] [address] [facility] Urea nitrogen [Mass/Vol] 17 mg/dL Normal 7-25 [facility] Comment on above: Order Comment: No: D o not add to previous draw Performed By: #### 1 0070, 53951, 18998, 01630 #### [facility] [address] [facility] CBC W/DIFFon 07-27-2021 ABS IMM GRANS 0.1 10*3/uL Normal 0.0-0.2 [facility] Comment on above: Performed By: #### 1 0070, 10222, 41410, 80937 #### [facility] [address] [facility] ABS NEUTROPHILS 10.2 10*3/uL High 1.6-7.6 [facility] Comment on above: Performed By: #### 1 0070, 96123, 10929, 14910 #### [facility] [address] [place] [address], [facility] Basophils (Bld) [#/Vol] 0.0 10*3/uL Normal 0.0-0.2 [facility] Comment on above: Performed By: #### 1 0070, 46439, 32302, 02674 #### [facility] [address] [facility] [address], [facility] Basophils/100 WBC (Bld) 0.3 % Normal 0.0-1.0 [facility] Comment on above: Performed By: #### 1 0070, 68485, 90930, 39471 #### [facility] [address] [facility] [place] [address], [facility] Eosinophils (Bld) [#/Vol] 0.0 10*3/uL Normal 0.0-0.5 [facility] Comment on above: Performed By: #### 1 0070, 73115, 68177, 65252 #### [facility] [address] [facility] [place] [address], [facility] Eosinophils/100 WBC (Bld) 0.0 % Normal 0.0-6.0 [facility] Comment on above: Performed By: #### 1 0070, 33213, 88538, 03674 #### [facility] [address] Erythrocyte distribution width (RBC) [Ratio] 13.2 % Normal 11.5-15.0 [facility] Comment on above: Performed By: #### 1 0070, 06274, 63086, 92342 #### [facility] [address] [facility]. [address] Hematocrit (Bld) [Volume fraction] 44.2 % Normal 39.0-50.0 [facility] Comment on above: Performed By: #### 1 0070, 14329, 99831, 38017 #### [facility] [address] [facility]. [address] Hemoglobin (Bld) [Mass/Vol] 14.9 g/dL Normal 13.0-17.0 [facility] Comment on above: Performed By: #### 1 0070, 49663, 68206, 91351 #### [facility] [address] [facility] [place] [address], [facility] IMMATURE GRANS 0.7 % Normal 0.0-1.0 [facility] Comment on above: Performed By: #### 1 0070, 59410, 39480, 00888 #### [facility] [address] [place] [address], [facility] Lymphocytes (Bld) [#/Vol] 1.0 10*3/uL Low 1.2-4.0 [facility] Comment on above: Performed By: #### 1 0070, 87863, 99403, 34813 #### [facility] [address] [place] [address], [facility] Lymphocytes/100 WBC (Bld) 8.2 % Low 20.0-45.0 [facility] Comment on above: Performed By: #### 1 0, 04521, 35613, 52888 #### [facility] [address] [place] [address], [facility] MCH (RBC) [Entitic mass] 31.2 pg Normal 27.0-33.0 [facility] Comment on above: Performed By: #### 1 0070, 59808, 87127, 63258 #### [facility] [address] [place] [address], [facility] MCHC (RBC) [Mass/Vol] 33.7 g/dL Normal 32.0-35.0 [facility] Comment on above: Performed By: #### 1 0070, 25161, 59039, 71995 #### [facility] [address] [place] [address], [facility] MCV (RBC) [Entitic vol] 92.7 fL Normal 82.0-98.0 [facility] Comment on above: Performed By: #### 1 0070, 38814, 59568, 93569 #### [facility] [address] [place] [address], [facility] Monocytes (Bld) [#/Vol] 0.9 10*3/uL Normal 0.1-1.0 [facility] Comment on above: Performed By: #### 1 0070, 81677, 79737, 94044 #### [facility] [address] [place] [address], [place] MONOS 7.0 % Normal 5.0-12.0 [facility] Comment on above: Performed By: #### 1 0070, 68858, 37982, 76099 #### [facility] [address] [place] [address], [facility] Neutrophils/100 WBC (Bld) 83.8 % High 40.0-72.0 [facility] Comment on above: Performed By: #### 1 0070, 03818, 97172, 94324 #### [facility] [address] [place] [address], [facility] Nucleated RBC/100 WBC (Bld) [Ratio] 0 % Normal 0-0 [facility] Comment on above: Performed By: #### 1 0070, 66005, 18909, 08497 #### [facility] [address] [place] [address], [facility] PLAT CNT 198 10*3/uL Normal 150-400 [facility] Comment on above: Performed By: #### 1 0070, 38779, 80599, 91683 #### [facility] [address] [place] [address], [facility] RBC (Bld) [#/Vol] 4.77 10*6/uL Normal 4.20-5.70 [facility] Comment on above: Performed By: #### 1 0070, 40588, 20921, 89816 #### [facility] [address] [place] [address], [place] WBC (Bld) [#/Vol] 12.15 10*3/uL High 4.00-10.60 [facility] Comment on above: Performed By: #### 1 0070, 90372, 92801, 12414 #### [facility] [address] [place] [address], [place] LIVER BATTERYon 07-27-2021 Albumin [Mass/Vol] 3.3 g/dL Low 3.5-5.7 [facility] Comment on above: Order Comment: No: D o not add to previous draw Performed By: #### 1 0070, 24387, 10830, 49635 #### [facility] [address] [place] [address], [place] ALKALINE PHOSPH 124 IU/L High 34-104 [facility] Comment on above: Order Comment: No: D o not add to previous draw Performed By: #### 1 0070, 40304, 65277, 77957 #### [facility] [address] [place] [address], [place] ALT [Catalytic activity/Vol] 58 U/L High 7-52 [facility] Comment on above: Order Comment: No: D o not add to previous draw Performed By: #### 1 0070, 60303, 63634, 21190 #### [facility] [address] [place] [address], [place] AST [Catalytic activity/Vol] 48 U/L High 13-39 [facility] Comment on above: Order Comment: No: D o not add to previous draw Performed By: #### 1 0070, 67226, 96105, 11230 #### [facility] [address] [place] [address], [place] Bilirubin [Mass/Vol] 0.8 mg/dL Normal 0.3-1.0 [facility] Comment on above: Order Comment: No: D o not add to previous draw Performed By: #### 1 0070, 02877, 27356, 37432 #### [facility] [address] [place] [address], [place] Bilirubin.direct [Mass/Vol] 0.3 mg/dL High 0.0-0.2 [facility] Comment on above: Order Comment: No: D o not add to previous draw Performed By: #### 1 0070, 38873, 98177, 85214 #### [facility] [address] [place] [address], [facility] Protein [Mass/Vol] 6.2 g/dL Normal 6.0-8.3 [facility] Comment on above: Order Comment: No: D o not add to previous draw Performed By: #### 1 0070, 94597, 75026, 55465 #### [facility] [address] [place] [address], [facility] MAGNESIUM BLOODon 07-27-2021 Magnesium [Mass/Vol] 1.8 mg/dL Low 1.9-2.7 [facility] Comment on above: Order Comment: No: D o not add to previous draw Performed By: #### 1 0070, 14438, 20931, 59403 #### [facility] [address] [place] [address], [facility] PHOSPHORUS BLOODon Phosphate [Mass/Vol] 2.9 mg/dL Normal 2.5-5.0 [facility] Comment on above: Order Comment: No: D o not add to previous draw Performed By: #### 1 0070, 81908, 42654, 54709 #### [facility] [address] [place] [address], [facility] POC GLUCOSE LABon 07-27-2021 Glucose [Mass/Vol] 260 mg/dL High 70-100 [facility] Comment on above: Performed By: #### 8 5499 #### [facility] [address] [place] [address], [facility] Glucose [Mass/Vol] 225 mg/dL High 70-100 [facility] Comment on above: Performed By: #### 1 0070, 52817, 21969, 14737 #### [facility] [address] PROTHROMBIN TIMEon INR Coag (PPP) [Relative time] 1.22 {INR} High 0.91-1.16 [facility] Comment on above: Order Comment: No: [...] CHEST 1995;108:[id number]-[id number]. Performed By: #### 1 0070, 53708, 29947, 54399 #### [facility] [address] PT Coag (PPP) [Time] 15.4 s High 12.3-14.8 [facility] [facility] Comment on above: Order Comment: No: D o not add to previous draw Result Comment: ALL RESULTS MUST BE INTERPRETED WITH RESPECT TO BLOOD DRAWING ARTIFACT OR DILUTION ERROR OF ANTICOAGULANT AT THE TIME OF SAMPLING. Performed By: #### 1 0070, 80274, 93534, 11962 #### [facility] [address] BASIC METABOLIC PANELon 10-2 Calcium [Mass/Vol] 8.5 mg/dL Low 8.6-10.3 [facility] Comment on above: Order Comment: No: D o not add to previous draw Performed By: #### 8 5499 #### [facility] [address] [place] [address], [place] Chloride [Moles/Vol] 108 mmol/L High 98-107 [facility] Comment on above: Order Comment: No: D o not add to previous draw Performed By: #### 8 5499 #### [facility] [address] [place] [address], [place] CO2 [Moles/Vol] 24 mmol/L Normal 21-31 [facility] Comment on above: Order Comment: No: D o not add to previous draw Performed By: #### 8 5499 #### [facility] [address] [place] [address], [place] Creatinine [Mass/Vol] 1.23 mg/dL Normal 0.70-1.30 [facility] Comment on above: Order Comment: No: D o not add to previous draw Performed By: #### 8 5499 #### [facility] [address] [place] [address], [facility] eGFR- non- 60 ml/min/1.73sq m Abnormal >60 [facility] Comment on above: Order Comment: No: D o not add to previous draw Performed By: #### 8 5499 #### [facility] [address] [place] [address], [facility] GFR/1.73 sq M.predicted among blacks MDRD (S/P/Bld) [Vol rate/Area] mL/min/{1.73_m2} Normal >60 [facility] Comment on above: Order Comment: No: D o not add to previous draw Performed By: #### 8 5499 #### [facility] [address] [place] [address], [place] Glucose [Mass/Vol] 141 mg/dL High 70-100 [facility] Comment on above: Order Comment: No: D o not add to previous draw Performed By: #### 8 5499 #### [facility] [address] [place] [address], [place] Potassium [Moles/Vol] 3.5 mmol/L Normal 3.5-5.1 [facility] Comment on above: Order Comment: No: D o not add to previous draw Performed By: #### 8 5499 #### [facility] [address] [place] [address], [place] Sodium [Moles/Vol] 139 mmol/L Normal 136-145 [facility] Comment on above: Order Comment: No: D o not add to previous draw Performed By: #### 8 5499 #### [facility] [address] [place] [address], [place] Urea nitrogen [Mass/Vol] 18 mg/dL Normal 7-25 [facility] Comment on above: Order Comment: No: D o not add to previous draw Performed By: #### 8 5499 #### [facility] [address] [place] [address], [facility] CBC COMPLETE BLOOD COUNTon Erythrocyte distribution width (RBC) [Ratio] 13.2 % Normal 11.5-15.0 [facility] Comment on above: Order Comment: No: D o not add to previous draw Performed By: #### 1 0070, 58489, 23722, 50134 #### [facility] [address] [place] [address], [place] Hematocrit (Bld) [Volume fraction] 42.7 % Normal 39.0-50.0 [facility] Comment on above: Order Comment: No: D o not add to previous draw Performed By: #### 1 0070, 84471, 49538, 09945 #### [facility] [address] [place] [address], [place] Hemoglobin (Bld) [Mass/Vol] 14.5 g/dL Normal 13.0-17.0 [facility] Comment on above: Order Comment: No: D o not add to previous draw Performed By: #### 1 0070, 95214, 47267, 07915 #### [facility] [address] [place] [address], [facility] MCH (RBC) [Entitic mass] 32.0 pg Normal 27.0-33.0 [facility] Comment on above: Order Comment: No: D o not add to previous draw Performed By: #### 1 0070, 94070, 20213, 72161 #### [facility] [address] [place] [address], [facility] MCHC (RBC) [Mass/Vol] 34.0 g/dL Normal 32.0-35.0 [facility] Comment on above: Order Comment: No: D o not add to previous draw Performed By: #### 1 0070, 60429, 92688, 51538 #### [facility] [address] [place] [address], [facility] MCV (RBC) [Entitic vol] 94.3 fL Normal 82.0-98.0 [facility] Comment on above: Order Comment: No: D o not add to previous draw Performed By: #### 1 0070, 28367, 53203, 07286 #### [facility] [address] [place] [address], [facility] Nucleated RBC/100 WBC (Bld) [Ratio] 0 % Normal 0-0 [facility] Comment on above: Order Comment: No: D o not add to previous draw Performed By: #### 1 0070, 16407, 49466, 52531 #### [facility] [address] [place] [address], [facility] PLAT CNT 179 10*3/uL Normal 150-400 [facility] Comment on above: Order Comment: No: D o not add to previous draw Performed By: #### 1 0070, 74136, 34377, 66905 #### [facility] [address] [place] [address], [facility] RBC (Bld) [#/Vol] 4.53 10*6/uL Normal 4.20-5.70 [facility] Comment on above: Order Comment: No: D o not add to previous draw Performed By: #### 1 0070, 48602, 78413, 87808 #### [facility] [address] [place] [address], [place] WBC (Bld) [#/Vol] 7.86 10*3/uL Normal 4.00-10.60 [facility] Comment on above: Order Comment: No: D o not add to previous draw Performed By: #### 1 0070, 06534, 95221, 11962 #### [facility] [address] [place] [address], [facility] LIVER BATTERYon 07-26-2021 Albumin [Mass/Vol] 3.2 g/dL Low 3.5-5.7 [facility] Comment on above: Order Comment: No: D o not add to previous draw Performed By: #### 0 0071, 85929 #### [facility] [address] [place] [address], [facility] ALKALINE PHOSPH 114 IU/L High 34-104 [facility] Comment on above: Order Comment: No: D o not add to previous draw Performed By: #### 0 0071, 88000 #### [facility] [address] [place] [id number], [facility] ALT [Catalytic activity/Vol] 37 U/L Normal 7-52 [facility] Comment on above: Order Comment: No: D o not add to previous draw Performed By: #### 0 0071, 09076 #### [facility] [address] [place] [address], [place] AST [Catalytic activity/Vol] 28 U/L Normal 13-39 [facility] Comment on above: Order Comment: No: D o not add to previous draw Performed By: #### 0 0071, 93222 #### [facility] [address] [place] [address], [place] Bilirubin [Mass/Vol] 0.6 mg/dL Normal 0.3-1.0 [facility] Comment on above: Order Comment: No: D o not add to previous draw Performed By: #### 0 0071, 22084 #### [facility] [address] [place] [address], [place] Bilirubin.direct [Mass/Vol] 0.1 mg/dL Normal 0.0-0.2 [facility] Comment on above: Order Comment: No: D o not add to previous draw Performed By: #### 0 0071, 42509 #### [facility] [address] [place] [address], [place] Protein [Mass/Vol] 6.3 g/dL Normal 6.0-8.3 [facility] Comment on above: Order Comment: No: D o not add to previous draw Performed By: #### 0 0071, 14271 #### [facility] [address] [place] [address], [facility] Operative Reporton Operative Report MR#: [id number] [facility] Pt. Name: Andry Pierre Room #: [id number] Discharge Date: Birthdate: 1960 OPERATIVE REPORT DATE [...] Olivier M.D. Date Trans: 07/26/2021 04:31 P/ VALENTINE_JN:[id number] cc: Luis Mccormick M.D. [address] [id number] Normal [facility] POC GLUCOSE LABon 07-26-2021 Glucose [Mass/Vol] 155 mg/dL High 70-100 [facility] Comment on above: Performed By: #### 1 0070, 88025, 79136, 48175 #### [facility] [address] [place] [address], [facility] Glucose [Mass/Vol] 149 mg/dL High 70-100 [facility] Comment on above: Performed By: #### 8 5499 #### [facility] [address] [place] [address], [facility] Glucose [Mass/Vol] 123 mg/dL High 70-100 [facility] Comment on above: Performed By: #### 1 0070, 55145, 97198, 52001 #### [facility] [address] [place] [address], [facility] Glucose [Mass/Vol] 126 mg/dL High 70-100 [facility] Comment on above: Performed By: #### 8 5499 #### [facility] [address] [place] [address], [facility] PROTHROMBIN TIMEon 1 INR Coag (PPP) [Relative time] 1.20 {INR} High 0.91-1.16 [facility] Comment on above: Order Comment: No: [...] CHEST 1995;108:231S-246S. Performed By: #### 1 0070, 18938, 17434, 31786 #### [facility] [address] [place] [address], [facility] PT Coag (PPP) [Time] 15.2 s High 12.3-14.8 [facility] Comment on above: Order Comment: No: D o not add to previous draw Result Comment: ALL RESULTS MUST BE INTERPRETED WITH RESPECT TO BLOOD DRAWING ARTIFACT OR DILUTION ERROR OF ANTICOAGULANT AT THE TIME OF SAMPLING. Performed By: #### 1 0070, 46886, 07909, 89983 #### [facility] [address] [address], [facility] APTTon 07-25-2021 aPTT Coag (Bld) [Time] 29.3 s Normal 25.0-35.0 [facility] Comment on above: Order Comment: No: [...] THIS PURPOSE. Performed By: #### 1 0070, 73338, 07453, 86447 #### [facility] [address] [place] [address], [facility] aPTT Coag (Bld) [Time] 28.7 s Normal 25.0-35.0 [facility] Comment on above: Order Comment: No: [...] THIS PURPOSE. Performed By: #### 1 0070, 67674, 60472, 48276 #### [facility] [address] BASIC METABOLIC PANELon 10-2 0-2020 Calcium [Mass/Vol] 8.3 mg/dL Low 8.6-10.3 [facility] Comment on above: Order Comment: No: D o not add to previous draw Performed By: #### 1 0070, 67525, 10104, 83716 #### [facility] [address] [place] [address], [facility] Chloride [Moles/Vol] 111 mmol/L High 98-107 [facility] Comment on above: Order Comment: No: D o not add to previous draw Performed By: #### 1 0070, 74003, 15121, 43542 #### [facility] [address] [place] [address], [facility] CO2 [Moles/Vol] 26 mmol/L Normal 21-31 [facility] Comment on above: Order Comment: No: D o not add to previous draw Performed By: #### 1 0070, 76282, 56285, 23276 #### [facility] [address] [place] [address], [facility] Creatinine [Mass/Vol] 1.25 mg/dL Normal 0.70-1.30 [facility] Comment on above: Order Comment: No: D o not add to previous draw Performed By: #### 1 0070, 10170, 84826, 75852 #### [facility] [address] [place] [address], [facility] eGFR- non- 59 ml/min/1.73sq m Abnormal >60 [facility] Comment on above: Order Comment: No: D o not add to previous draw Performed By: #### 1 0070, 62361, 52700, 30489 #### [facility] [address] [place] [address], [place] GFR/1.73 sq M.predicted among blacks MDRD (S/P/Bld) [Vol rate/Area] mL/min/{1.73_m2} Normal >60 [facility] Comment on above: Order Comment: No: D o not add to previous draw Performed By: #### 1 0070, 92880, 48557, 45962 #### [facility] [address] [place] [address], [place] Glucose [Mass/Vol] 107 mg/dL High 70-100 [facility] Comment on above: Order Comment: No: D o not add to previous draw Performed By: #### 1 0070, 05880, 62397, 90469 #### [facility] [address] [place] [address], [place] Potassium [Moles/Vol] 3.6 mmol/L Normal 3.5-5.1 [facility] Comment on above: Order Comment: No: D o not add to previous draw Performed By: #### 1 0070, 38244, 49501, 67699 #### [facility] [address] [place] [address], [place] Sodium [Moles/Vol] 143 mmol/L Normal 136-145 [facility] Comment on above: Order Comment: No: D o not add to previous draw Performed By: #### 1 0070, 56349, 95567, 99746 #### [facility] [address] [place] [address], [place] Urea nitrogen [Mass/Vol] 22 mg/dL Normal 7-25 [facility] Comment on above: Order Comment: No: D o not add to previous draw Performed By: #### 1 0070, 37079, 89687, 63746 #### [facility] [address] [place] [address], [place] CBC COMPLETE BLOOD COUNTon 1 0-20-2021 Erythrocyte distribution width (RBC) [Ratio] 13.3 % Normal 11.5-15.0 [facility] Comment on above: Order Comment: No: D o not add to previous draw Performed By: #### 1 0070, 22301, 39812, 62388 #### [facility] [address] [place] [address], [facility] Hematocrit (Bld) [Volume fraction] 46.9 % Normal 39.0-50.0 [facility] Comment on above: Order Comment: No: D o not add to previous draw Performed By: #### 1 0070, 22715, 58122, 85604 #### [facility] [address] [place] [address], [facility] Hemoglobin (Bld) [Mass/Vol] 15.4 g/dL Normal 13.0-17.0 [facility] Comment on above: Order Comment: No: D o not add to previous draw Performed By: #### 1 0070, 90584, 89521, 44787 #### [facility] [address] [place] [address], [facility] MCH (RBC) [Entitic mass] 31.3 pg Normal 27.0-33.0 [facility] Comment on above: Order Comment: No: D o not add to previous draw Performed By: #### 1 0070, 72243, 08202, 61193 #### [facility] [address] [place] [address], [facility] MCHC (RBC) [Mass/Vol] 32.8 g/dL Normal 32.0-35.0 [facility] Comment on above: Order Comment: No: D o not add to previous draw Performed By: #### 1 0070, 46779, 24283, 91068 #### [facility] [address] [place] [address], [place] MCV (RBC) [Entitic vol] 95.3 fL Normal 82.0-98.0 [facility] Comment on above: Order Comment: No: D o not add to previous draw Performed By: #### 1 0070, 28524, 62673, 81920 #### [facility] [address] [place] [address], [facility] Nucleated RBC/100 WBC (Bld) [Ratio] 0 % Normal 0-0 [facility] Comment on above: Order Comment: No: D o not add to previous draw Performed By: #### 1 0070, 53648, 15508, 62026 #### [facility] [address] [place] [address], [facility] PLAT CNT 183 10*3/uL Normal 150-400 [facility] Comment on above: Order Comment: No: D o not add to previous draw Performed By: #### 1 0070, 65709, 93405, 87108 #### [facility] [address] [place] [address], [facility] RBC (Bld) [#/Vol] 4.92 10*6/uL Normal 4.20-5.70 [facility] Comment on above: Order Comment: No: D o not add to previous draw Performed By: #### 1 0070, 04189, 00451, 79721 #### [facility] [address] [place] [address], [facility] WBC (Bld) [#/Vol] 9.70 10*3/uL Normal 4.00-10.60 [facility] Comment on above: Order Comment: No: D o not add to previous draw Performed By: #### 1 0070, 63950, 19539, 66435 #### [facility] [address] [place] [address], [facility] LIPASE BLOODon 07-25-2021 LIPASE 34 Units/L Normal 11-82 [facility] Comment on above: Order Comment: No: D o not add to previous draw Performed By: #### 1 0070, 42600, 41983, 59661 #### [facility] [address] [place] [address], [facility] LIVER BATTERYon 07-25-2021 Albumin [Mass/Vol] 3.0 g/dL Low 3.5-5.7 [facility] Comment on above: Order Comment: No: D o not add to previous draw Performed By: #### 1 0070, 93392, 43224, 75271 #### [facility] [address] [place] [address], [facility] ALKALINE PHOSPH 113 IU/L High 34-104 [facility] Comment on above: Order Comment: No: D o not add to previous draw Performed By: #### 1 0070, 88511, 52455, 72464 #### [facility] [address] [place] [address], [facility] ALT [Catalytic activity/Vol] 37 U/L Normal 7-52 [facility] Comment on above: Order Comment: No: D o not add to previous draw Performed By: #### 1 0070, 21286, 99196, 34177 #### [facility] [address] [place] [address], [place] AST [Catalytic activity/Vol] 36 U/L Normal 13-39 [facility] Comment on above: Order Comment: No: D o not add to previous draw Performed By: #### 1 0070, 67392, 03817, 43042 #### [facility] [address] [place] [address], [place] Bilirubin [Mass/Vol] 0.6 mg/dL Normal 0.3-1.0 [facility] Comment on above: Order Comment: No: D o not add to previous draw Performed By: #### 1 0070, 80447, 81059, 84203 #### [facility] [address] [place] [address], [place] Bilirubin.direct [Mass/Vol] 0.1 mg/dL Normal 0.0-0.2 [facility] Comment on above: Order Comment: No: D o not add to previous draw Performed By: #### 1 0070, 53230, 94712, 92179 #### [facility] [address] [place] [address], [place] Protein [Mass/Vol] 5.3 g/dL Low 6.0-8.3 [facility] Comment on above: Order Comment: No: D o not add to previous draw Performed By: #### 1 0070, 56244, 46387, 71047 #### [facility] [address] [place] [address], [place] POC GLUCOSE LABon 07-25-2021 Glucose [Mass/Vol] 388 mg/dL High 70-100 [facility] Comment on above: Performed By: #### 1 0070, 36244, 25822, 37154 #### [facility] [address] [place] [address], [place] Glucose [Mass/Vol] 173 mg/dL High 70-100 [facility] Comment on above: Performed By: #### 8 5499 #### [facility] [address] [place] [address], [place] Glucose [Mass/Vol] 178 mg/dL High 70-100 [facility] Comment on above: Performed By: #### 8 5499 #### [facility] [address] [place] [address], [place] Glucose [Mass/Vol] 106 mg/dL High 70-100 [facility] Comment on above: Performed By: #### 1 0070, 35697, 04124, 64317 #### [facility] [address] [place] [address], [place] PROTHROMBIN TIMEon INR Coag (PPP) [Relative time] 1.30 {INR} High 0.91-1.16 [facility] Comment on above: Order Comment: No: [...] CHEST 1995;108:231S-246S. Performed By: #### 1 0070, 27059, 69925, 25623 #### [facility] [email or web address] PT Coag (PPP) [Time] 16.2 s High 12.3-14.8 [facility] Comment on above: Order Comment: No: D o not add to previous draw Result Comment: ALL RESULTS MUST BE INTERPRETED WITH RESPECT TO BLOOD DRAWING ARTIFACT OR DILUTION ERROR OF ANTICOAGULANT AT THE TIME OF SAMPLING. Performed By: #### 1 0070, 71690, 30978, 30272 #### [facility] [address] UFH HEPARIN ASSAYon 20 21 UNFRACTIONATED HEPARIN <0.10 Critically low 0.30-0.70 [facility] Comment on above: Result Comment: Resu lts called. Accur[place] 4D [place] [address], 25-Jul-2021. Patient is not on anything that would raise the uFH value per nurse Caitlin. Rivaroxaban and Apixaban will interfere with the anti Xa assay used to monitor UFH and LMWH. Performed By: #### 1 0070, 87308, 02218, 56657 #### [facility] [address] [place] [address], [facility] UNFRACTIONATED HEPARIN <0.10 Critically low 0.30-0.70 [facility] Comment on above: Result Comment: Resu lt checked and called. Accurately read back by Caitlin Koch RN at 1024 Rivaroxaban and Apixaban will interfere with the anti Xa assay used to monitor UFH and LMWH. Performed By: #### 1 0070, 36125, 10396, 92862 #### [facility] [address] [place] [address], [facility] BASIC METABOLIC PANELon 10-1 Calcium [Mass/Vol] 8.7 mg/dL Normal 8.6-10.3 [facility] Comment on above: Order Comment: No: D o not add to previous draw Performed By: #### 0 0071, 72445 #### [facility] [address] [place] [address], [facility] Chloride [Moles/Vol] 105 mmol/L Normal 98-107 [facility] Comment on above: Order Comment: No: D o not add to previous draw Performed By: #### 0 0071, 55542 #### [facility] [address] [place] [address], [facility] CO2 [Moles/Vol] 30 mmol/L Normal 21-31 [facility] Comment on above: Order Comment: No: D o not add to previous draw Performed By: #### 0 0071, 25761 #### [facility] [address] [place] [address], [facility] Creatinine [Mass/Vol] 1.52 mg/dL High 0.70-1.30 [facility] Comment on above: Order Comment: No: D o not add to previous draw Performed By: #### 0 0071, 42889 #### [facility] [address] [place] [address], [facility] eGFR- 57 ml/min/1.73sq m Abnormal >60 [facility] Comment on above: Order Comment: No: D o not add to previous draw Performed By: #### 0 0071, 56565 #### [facility] [address] [place] [address], [facility] eGFR- non- 47 ml/min/1.73sq m Abnormal >60 [facility] Comment on above: Order Comment: No: D o not add to previous draw Performed By: #### 0 0071, 75811 #### [facility] [address] [place] [address], [place] Glucose [Mass/Vol] 331 mg/dL High 70-100 [facility] Comment on above: Order Comment: No: D o not add to previous draw Performed By: #### 0 0071, 58128 #### [facility] [address] [place] [address], [place] Potassium [Moles/Vol] 4.3 mmol/L Normal 3.5-5.1 [facility] Comment on above: Order Comment: No: D o not add to previous draw Performed By: #### 0 0071, 75861 #### [facility] [address] [place] [address], [facility] Sodium [Moles/Vol] 139 mmol/L Normal 136-145 [facility] Comment on above: Order Comment: No: D o not add to previous draw Performed By: #### 0 0071, 29056 #### [facility] [address] [place] [address], [place] Urea nitrogen [Mass/Vol] 26 mg/dL High 7-25 [facility] Comment on above: Order Comment: No: D o not add to previous draw Performed By: #### 0 0071, 03711 #### [facility] [address] [place] [address], [place] CBC COMPLETE BLOOD COUNTon Erythrocyte distribution width (RBC) [Ratio] 13.2 % Normal 11.5-15.0 [facility] Comment on above: Order Comment: No: D o not add to previous draw Performed By: #### 1 0070, 35313, 59747, 95386 #### [facility] [address] [place] [address], [facility] Hematocrit (Bld) [Volume fraction] 42.9 % Normal 39.0-50.0 [facility] Comment on above: Order Comment: No: D o not add to previous draw Performed By: #### 1 0070, 03573, 50091, 42715 #### [facility] [address] [place] [address], [facility] Hemoglobin (Bld) [Mass/Vol] 13.7 g/dL Normal 13.0-17.0 [facility] Comment on above: Order Comment: No: D o not add to previous draw Performed By: #### 1 0070, 56453, 34980, 49149 #### [facility] [address] [place] [address], [facility] MCH (RBC) [Entitic mass] 30.9 pg Normal 27.0-33.0 [facility] Comment on above: Order Comment: No: D o not add to previous draw Performed By: #### 1 0070, 73730, 75270, 52321 #### [facility] [address] [place] [address], [facility] MCHC (RBC) [Mass/Vol] 31.9 g/dL Low 32.0-35.0 [facility] Comment on above: Order Comment: No: D o not add to previous draw Performed By: #### 1 0070, 61909, 46905, 76219 #### [facility] [address] [place] [id number], [facility] MCV (RBC) [Entitic vol] 96.6 fL Normal 82.0-98.0 [facility] Comment on above: Order Comment: No: D o not add to previous draw Performed By: #### 1 0070, 68686, 38161, 77877 #### [facility] [address] [place] [address], [facility] Nucleated RBC/100 WBC (Bld) [Ratio] 0 % Normal 0-0 [facility] Comment on above: Order Comment: No: D o not add to previous draw Performed By: #### 1 0070, 41242, 33793, 77460 #### [facility] [address] [place] [address], [facility] PLAT CNT 184 10*3/uL Normal 150-400 [facility] Comment on above: Order Comment: No: D o not add to previous draw Performed By: #### 1 0070, 66182, 36878, 79296 #### [place] [address], [facility] RBC (Bld) [#/Vol] 4.44 10*6/uL Normal 4.20-5.70 [facility] Comment on above: Order Comment: No: D o not add to previous draw Performed By: #### 1 0070, 79914, 27590, 72171 #### [place] [address], [facility] WBC (Bld) [#/Vol] 8.42 10*3/uL Normal 4.00-10.60 [facility] Comment on above: Order Comment: No: D o not add to previous draw Performed By: #### 1 0070, 94049, 30183, 72377 #### [address] ERCPon 07-24-2021 [facility] Department of Radiology [address] [place] [address] [id number] Patient Name: ANDRY PIERRE : 1960 Sex: M Age: Race: White Pt. Location: [id number] Patient Status: I Ordered Date: 07/24/2021 7:00:00 AM Completed Date: 07/24/2021 07:31 PM Requesting Provider: AYM REMY Attending Provider: AMY REMY Report Copy [...] details. Electronically signed: Khoa Chahal. Transcribed by: [email or web address], User Resident: Electronically Signed by: KHOA CHAHAL @ 07/25/2021 08:48 AM Normal [facility] Comment on above: Order Comment: ERCP Endoscopy Reporton Endoscopy Report MR#: [id number] [facility] Pt. Name: Andry Pierre Surgery Date: 07/24/2021 Room #: [id number] Date of : 1960 PROCEDURE NOTE ATTENDING: Amy Remy M.D. COMMUTER TRAIN OPERATOR: Cyrus Decker MD PROCEDURE: ERCP with biliary [...] P/Cyrus Decker MD Date Trans: 07/24/2021 09:24 P/mmo [id number] cc: Luis Mccormick M.D. [address] Yaya Sona [facility] [phone] Normal [facility] LIVER BATTERYon 07-24-2021 Albumin [Mass/Vol] 3.3 g/dL Low 3.5-5.7 [facility] Comment on above: Order Comment: No: D o not add to previous draw Performed By: #### 0 0071, 28969 #### [facility] [address] [place] [address], [facility] ALKALINE PHOSPH 106 IU/L High 34-104 [facility] Comment on above: Order Comment: No: D o not add to previous draw Performed By: #### 0 0071, 94809 #### [facility] [address] [place] [address], [facility] ALT [Catalytic activity/Vol] 26 U/L Normal 7-52 [facility] Comment on above: Order Comment: No: D o not add to previous draw Performed By: #### 0 0071, 10002 #### [facility] [address] [place] [address], [facility] AST [Catalytic activity/Vol] 17 U/L Normal 13-39 [facility] Comment on above: Order Comment: No: D o not add to previous draw Performed By: #### 0 0071, 07008 #### [facility] [address] [place] [address], [place] Bilirubin [Mass/Vol] 0.3 mg/dL Normal 0.3-1.0 [facility] Comment on above: Order Comment: No: D o not add to previous draw Performed By: #### 0 0071, 27282 #### [facility] [address] [place] [address], [place] Bilirubin.direct [Mass/Vol] 0.0 mg/dL Normal 0.0-0.2 [facility] Comment on above: Order Comment: No: D o not add to previous draw Performed By: #### 0 0071, 13804 #### [facility] [address] [place] [address], [place] Protein [Mass/Vol] 6.1 g/dL Normal 6.0-8.3 [facility] Comment on above: Order Comment: No: D o not add to previous draw Performed By: #### 0 0071, 62495 #### [facility] [address] [place] [address], [place] POC GLUCOSE LABon 07-24-2021 Glucose [Mass/Vol] 89 mg/dL Normal 70-100 [facility] Comment on above: Performed By: #### 8 5499 #### [facility] [address] [place] [address], [place] Glucose [Mass/Vol] 89 mg/dL Normal 70-100 [facility] Comment on above: Performed By: #### 1 0070, 00009, 20522, 07563 #### [facility] [address] [place] [address], [place] Glucose [Mass/Vol] 166 mg/dL High 70-100 [facility] Comment on above: Performed By: #### 8 5499 #### [facility] [address] [place] [address], [place] Glucose [Mass/Vol] 391 mg/dL High 70-100 [facility] Comment on above: Performed By: #### 8 5499 #### [facility] [address] [facility] POC SARS COV2 ANTIGEN NEGATI VEon 07-24-2021 POC SARS COV2 ANTIGEN NEG Negative Normal NEGATIVE [facility] Comment on above: Result Comment: Nega [...] signs and symptoms consistent with COVID-19. The [employer] COVID-19 Ag Card is a lateral flow [...] Accreditation. Performed By: #### 8 5499 #### [facility] [address] [facility]. [address] PROTHROMBIN TIMEon INR Coag (PPP) [Relative time] 1.53 {INR} High 0.91-1.16 [facility] Comment on above: Order Comment: No: D o not add to previous draw Result Comment: ACC P RECOMMENDED INR FOR WARFARIN THERAPY ----- [...] CHEST 1995;108:231S-246S. Performed By: #### 1 0070, 26097, 42020, 27832 #### [facility] [address] PT Coag (PPP) [Time] 18.3 s High 12.3-14.8 [facility] Comment on above: Order Comment: No: D o not add to previous draw Result Comment: ALL RESULTS MUST BE INTERPRETED WITH RESPECT TO BLOOD DRAWING ARTIFACT OR DILUTION ERROR OF ANTICOAGULANT AT THE TIME OF SAMPLING. Performed By: #### 1 0070, 50827, 93205, 47095 #### [facility] [address] COMP METABOLIC PANELon 07-23 Albumin [Mass/Vol] 3.5 g/dL Normal 3.5-5.7 [facility] Comment on above: Order Comment: No: D o not add to previous draw Performed By: #### 8 5499 #### [facility] [address] ALKALINE PHOSPH 122 IU/L High 34-104 [facility] Comment on above: Order Comment: No: D o not add to previous draw Performed By: #### 8 5499 #### [facility] [address] [facility] ALT [Catalytic activity/Vol] 32 U/L Normal 7-52 [facility] Comment on above: Order Comment: No: D o not add to previous draw Performed By: #### 8 5499 #### [facility] [address] [place] [address], [place] AST [Catalytic activity/Vol] 22 U/L Normal 13-39 [facility] Comment on above: Order Comment: No: D o not add to previous draw Performed By: #### 8 5499 #### [facility] [address] [place] [address], [place] Bilirubin [Mass/Vol] 0.4 mg/dL Normal 0.3-1.0 [facility] Comment on above: Order Comment: No: D o not add to previous draw Performed By: #### 8 5499 #### [facility] [address] [place] [address], [place] Calcium [Mass/Vol] 8.5 mg/dL Low 8.6-10.3 [facility] Comment on above: Order Comment: No: D o not add to previous draw Performed By: #### 8 5499 #### [facility] [address] [place] [address], [place] Chloride [Moles/Vol] 110 mmol/L High 98-107 [facility] Comment on above: Order Comment: No: D o not add to previous draw Performed By: #### 8 5499 #### [facility] [address] [place] [address], [place] CO2 [Moles/Vol] 23 mmol/L Normal 21-31 [facility] Comment on above: Order Comment: No: D o not add to previous draw Performed By: #### 8 5499 #### [facility] [address] [place] [address], [place] Creatinine [Mass/Vol] 1.33 mg/dL High 0.70-1.30 [facility] Comment on above: Order Comment: No: D o not add to previous draw Performed By: #### 8 5499 #### [facility] [address] [place] [address], [facility] eGFR- non- 55 ml/min/1.73sq m Abnormal >60 [facility] Comment on above: Order Comment: No: D o not add to previous draw Performed By: #### 8 5499 #### [facility] [address] [place] [address], [place] GFR/1.73 sq M.predicted among blacks MDRD (S/P/Bld) [Vol rate/Area] mL/min/{1.73_m2} Normal >60 [facility] Comment on above: Order Comment: No: D o not add to previous draw Performed By: #### 8 5499 #### [facility] [address] [place] [address], [place] Glucose [Mass/Vol] 198 mg/dL High 70-100 [facility] Comment on above: Order Comment: No: D o not add to previous draw Performed By: #### 8 5499 #### [facility] [address] [place] [address], [place] Potassium [Moles/Vol] 3.5 mmol/L Normal 3.5-5.1 [facility] Comment on above: Order Comment: No: D o not add to previous draw Performed By: #### 8 5499 #### [facility] [address] [place] [address], [place] Protein [Mass/Vol] 6.3 g/dL Normal 6.0-8.3 [facility] Comment on above: Order Comment: No: D o not add to previous draw Performed By: #### 8 5499 #### [facility] [address] [place] [address], [place] Sodium [Moles/Vol] 142 mmol/L Normal 136-145 [facility] Comment on above: Order Comment: No: D o not add to previous draw Performed By: #### 8 5499 #### [facility] [address] [place] [address], [facility] Urea nitrogen [Mass/Vol] 25 mg/dL Normal 7-25 [facility] Comment on above: Order Comment: No: D o not add to previous draw Performed By: #### 8 5499 #### [facility] [address] [place] [address], [facility] POC GLUCOSE LABon 07-23-2021 Glucose [Mass/Vol] 325 mg/dL High 70-100 [facility] Comment on above: Performed By: #### 8 5499 #### [facility] [address] [place] [address], [place] Glucose [Mass/Vol] 290 mg/dL High 70-100 [facility] Comment on above: Performed By: #### 1 0070, 08565, 95677, 64361 #### [facility] [address] [place] [address], [place] Glucose [Mass/Vol] 253 mg/dL High 70-100 [facility] Comment on above: Performed By: #### 1 0070, 44827, 74499, 75306 #### [facility] [address] [place] [address], [place] Glucose [Mass/Vol] 211 mg/dL High 70-100 [facility] Comment on above: Performed By: #### 8 5499 #### [facility] [address] [facility] [address], [facility] PROTHROMBIN TIMEon INR Coag (PPP) [Relative time] 1.92 {INR} High 0.91-1.16 [facility] Comment on above: Order Comment: Unkno wn Result Comment: ACCC P RECOMMENDED INR [...] 1995;108:231S-246S. Performed By: #### 8 5499 #### [facility] [address] PT Coag (PPP) [Time] 21.9 s High 12.3-14.8 [facility] Comment on above: Order Comment: Unkno wn Result Comment: ALL RESULTS MUST BE INTERPRETED WITH RESPECT TO BLOOD DRAWING ARTIFACT OR DILUTION ERROR OF ANTICOAGULANT AT THE TIME OF SAMPLING. Performed By: #### 8 5499 #### [facility] [address] [facility]. [address] APTTon 07-22-2021 aPTT Coag (Bld) [Time] 37.1 s High 25.0-35.0 [facility] Comment on above: Order Comment: No: [...] THIS PURPOSE. Performed By: #### 1 0070, 14884, 41764, 03602 #### [facility] [address] BASIC METABOLIC PANELon - Calcium [Mass/Vol] 8.3 mg/dL Low 8.6-10.3 [facility] Comment on above: Order Comment: No: D o not add to previous draw Performed By: #### 8 5499 #### [facility] [address] [place] [address], [place] Chloride [Moles/Vol] 109 mmol/L High 98-107 [facility] Comment on above: Order Comment: No: D o not add to previous draw Performed By: #### 8 5499 #### [facility] [address] [place] [address], [place] CO2 [Moles/Vol] 28 mmol/L Normal 21-31 [facility] Comment on above: Order Comment: No: D o not add to previous draw Performed By: #### 8 5499 #### [facility] [address] [place] [address], [place] Creatinine [Mass/Vol] 1.48 mg/dL High 0.70-1.30 [facility] Comment on above: Order Comment: No: D o not add to previous draw Performed By: #### 8 5499 #### [facility] [address] [place] [address], [facility] eGFR- 59 ml/min/1.73sq m Abnormal >60 [facility] Comment on above: Order Comment: No: D o not add to previous draw Performed By: #### 8 5499 #### [facility] [address] [place] [address], [place] eGFR- non- 48 ml/min/1.73sq m Abnormal >60 [facility] Comment on above: Order Comment: No: D o not add to previous draw Performed By: #### 8 5499 #### [facility] [address] [place] [address], [place] Glucose [Mass/Vol] 216 mg/dL High 70-100 [facility] Comment on above: Order Comment: No: D o not add to previous draw Performed By: #### 8 5499 #### [facility] [address] [place] [address], [facility] Potassium [Moles/Vol] 4.6 mmol/L Normal 3.5-5.1 [facility] Comment on above: Order Comment: No: D o not add to previous draw Performed By: #### 8 5499 #### [facility] [address] [place] [address], [place] Sodium [Moles/Vol] 141 mmol/L Normal 136-145 [facility] Comment on above: Order Comment: No: D o not add to previous draw Performed By: #### 8 5499 #### [facility] [address] [place] [address], [facility] Urea nitrogen [Mass/Vol] 26 mg/dL High 7-25 [facility] Comment on above: Order Comment: No: D o not add to previous draw Performed By: #### 8 5499 #### [facility] [address] [place] [address], [facility] CBC COMPLETE BLOOD COUNTon - Erythrocyte distribution width (RBC) [Ratio] 13.2 % Normal 11.5-15.0 [facility] Comment on above: Order Comment: No: D o not add to previous draw Performed By: #### 8 5499 #### [facility] [address] [place] [address], [place] Hematocrit (Bld) [Volume fraction] 45.8 % Normal 39.0-50.0 [facility] Comment on above: Order Comment: No: D o not add to previous draw Performed By: #### 8 5499 #### [facility] [address] [place] [address], [place] Hemoglobin (Bld) [Mass/Vol] 14.8 g/dL Normal 13.0-17.0 [facility] Comment on above: Order Comment: No: D o not add to previous draw Performed By: #### 8 5499 #### [facility] [address] [place] [address], [facility] MCH (RBC) [Entitic mass] 31.0 pg Normal 27.0-33.0 [facility] Comment on above: Order Comment: No: D o not add to previous draw Performed By: #### 8 5499 #### [facility] [address] [place] [address], [facility] MCHC (RBC) [Mass/Vol] 32.3 g/dL Normal 32.0-35.0 [facility] Comment on above: Order Comment: No: D o not add to previous draw Performed By: #### 8 5499 #### [facility] [address] [place] [address], [facility] MCV (RBC) [Entitic vol] 95.8 fL Normal 82.0-98.0 [facility] Comment on above: Order Comment: No: D o not add to previous draw Performed By: #### 8 5499 #### [facility] [address] [place] [address], [facility] Nucleated RBC/100 WBC (Bld) [Ratio] 0 % Normal 0-0 [facility] Comment on above: Order Comment: No: D o not add to previous draw Performed By: #### 8 5499 #### [facility] [address] [place] [address], [facility] PLAT CNT 209 10*3/uL Normal 150-400 [facility] Comment on above: Order Comment: No: D o not add to previous draw Performed By: #### 8 5499 #### [facility] [address] [place] [address], [facility] RBC (Bld) [#/Vol] 4.78 10*6/uL Normal 4.20-5.70 [facility] Comment on above: Order Comment: No: D o not add to previous draw Performed By: #### 8 5499 #### [facility] [address] [place] [address], [facility] WBC (Bld) [#/Vol] 8.89 10*3/uL Normal 4.00-10.60 [facility] Comment on above: Order Comment: No: D o not add to previous draw Performed By: #### 8 5499 #### [facility] [address] [place] [address], [facility] LIVER BATTERYon 07-22-2021 Albumin [Mass/Vol] 3.2 g/dL Low 3.5-5.7 [facility] Comment on above: Performed By: #### 8 5499 #### [facility] [address] [place] [address], [facility] ALKALINE PHOSPH 111 IU/L High 34-104 [facility] Comment on above: Performed By: #### 8 5499 #### [facility] [address] [place] [address], [facility] ALT [Catalytic activity/Vol] 23 U/L Normal 7-52 [facility] Comment on above: Performed By: #### 8 5499 #### [facility] [address] [place] [address], [facility] AST [Catalytic activity/Vol] 17 U/L Normal 13-39 [facility] Comment on above: Performed By: #### 8 5499 #### [facility] [address] [place] [address], [facility] Bilirubin [Mass/Vol] 0.3 mg/dL Normal 0.3-1.0 [facility] Comment on above: Performed By: #### 8 5499 #### [facility] [address] [place] [address], [facility] Bilirubin.direct [Mass/Vol] 0.0 mg/dL Normal 0.0-0.2 [facility] Comment on above: Performed By: #### 8 5499 #### [facility] [address] [place] [address], [place] Protein [Mass/Vol] 5.5 g/dL Low 6.0-8.3 [facility] Comment on above: Performed By: #### 8 5499 #### [facility] [address] [place] [address], [place] MAGNESIUM BLOODon 07-22-2021 Magnesium [Mass/Vol] 2.0 mg/dL Normal 1.9-2.7 [facility] Comment on above: Order Comment: No: D o not add to previous draw Performed By: #### 8 5499 #### [facility] [address] [place] [address], [place] PHOSPHORUS BLOODon Phosphate [Mass/Vol] 3.0 mg/dL Normal 2.5-5.0 [facility] Comment on above: Order Comment: No: D o not add to previous draw Performed By: #### 8 5499 #### [facility] [address] [place] [address], [place] POC GLUCOSE LABon 07-22-2021 Glucose [Mass/Vol] 223 mg/dL High 70-100 [facility] Comment on above: Performed By: #### 1 0070, 11764, 28602, 80920 #### [facility] [address] [place] [address], [place] Glucose [Mass/Vol] 222 mg/dL High 70-100 [facility] Comment on above: Performed By: #### 8 5499 #### [facility] [address] [place] [address], [place] Glucose [Mass/Vol] 245 mg/dL High 70-100 [facility] Comment on above: Performed By: #### 8 5499 #### [facility] [address] [place] [address], [place] Glucose [Mass/Vol] 202 mg/dL High 70-100 [facility] Comment on above: Performed By: #### 1 0070, 50352, 48624, 72221 #### [facility] [address] [place] [address], [facility] PROTHROMBIN TIMEon INR Coag (PPP) [Relative time] 2.27 {INR} High 0.91-1.16 [facility] Comment on above: Order Comment: No: [...] CHEST 1995;108:231S-246S. Performed By: #### 1 0070, 40791, 36170, 33294 #### [facility] [address] [place] [address], [facility] PT Coag (PPP) [Time] 24.9 s High 12.3-14.8 [facility] Comment on above: Order Comment: No: D o not add to previous draw Result Comment: ALL RESULTS MUST BE INTERPRETED WITH RESPECT TO BLOOD DRAWING ARTIFACT OR DILUTION ERROR OF ANTICOAGULANT AT THE TIME OF SAMPLING. Performed By: #### 1 0070, 34502, 04111, 22527 #### [facility] [address] [place] [address], [facility] Basic Metabolic Panelon 07-06 Calcium [Mass/Vol] 9.4 mg/dL Normal 8.2-10.2 [facility] Comment on above: Performed By: #### H EPATIC, CBC, LIPASE, BMP #### [facility] [address] Chloride [Moles/Vol] 103 mmol/L Normal 95-114 [facility] Comment on above: Performed By: #### H EPATIC, CBC, LIPASE, BMP #### [facility] [address] CO2 [Moles/Vol] 26.9 mmol/L Normal 22.0-30.0 [facility] Comment on above: Performed By: #### H EPATIC, CBC, LIPASE, BMP #### [address] Creatinine [Mass/Vol] 1.66 mg/dL High 0.64-1.27 [facility] Comment on above: Performed By: #### H EPATIC, CBC, LIPASE, BMP #### [address] Creatinine Clr Calc Pharmacy 68.90 [facility] Comment on above: Performed By: #### H EPATIC, CBC, LIPASE, BMP #### [address] Estimated GFR ( Beata 51 [facility] Comment on above: Result Comment: GFR estimated reference range: According to KDOQI guidelines, <60 ml/min/1.73m2 is sufficient to diagnose a patient with chronic kidney disease. Performed By: #### H EPATIC, CBC, LIPASE, BMP #### [facility] [address] [place] [address] Estimated GFR (Non- Am 42 [facility] Comment on above: Performed By: #### H EPATIC, CBC, LIPASE, BMP #### [address] Glucose [Mass/Vol] 442 mg/dL High 70-100 [facility] Comment on above: Result Comment: [facility] Glucose Reference Range is dependent on time and content of last meal. Glucose of more than 200 mg/dL in a nonstressed, ambulatory subject supports the diagnosis of Diabetes Mellitus. ADA recommended reference range Performed By: #### H EPATIC, CBC, LIPASE, BMP #### [facility] [address] Potassium [Moles/Vol] 4.1 mmol/L Normal 3.5-5.1 [facility] Comment on above: Performed By: #### H EPATIC, CBC, LIPASE, BMP #### [facility] [address] Sodium [Moles/Vol] 140 mmol/L Normal 136-146 [facility] Comment on above: Performed By: #### H EPATIC, CBC, LIPASE, BMP #### [facility] [address] Urea nitrogen [Mass/Vol] 29 mg/dL High 9-23 [facility] Comment on above: Performed By: #### H EPATIC, CBC, LIPASE, BMP #### [facility] [address] COVID-19 Antigenon 1 COVID-19 [facility] [...] its performance Tamera Disclaimer characteristic determined by [employer] and Tamera Disclaimer validated at [facility]. This Tamera Disclaimer test has not been FDA cleared or approved. This Tamera Disclaimer test has been authorized by FDA under an Emergency Use Tamera Disclaimer Authorization (EUA). This test has been validated Tamera Disclaimer in accordance with the FDA's Guidance Document (Policy Taemra Disclaimer for Diagnostics Testing in Laboratories Certified to Tamera Disclaimer Perform High Complexity Testing under CLIA prior to Tamera Disclaimer Emergency Use Authorization for Coronavirus Tamera Disclaimer iseas during the Public Health Emergency) Tamera Disclaimer [...] is terminated or revoked sooner. PERFORMED BY: [facility] [address] PATHOLOGIST COMPUTER EDUCATION TEACHER TO [place]ADISON M.D. Normal [facility] Comment on above: Performed By: #### C OVID-19 TAMERA, SOFIANEG, COVID 19 [facility] [place] #### [facility] [address] [place], [place] [id number] [facility] COVID-19 FRMCon 07-21-2021 SARS-CoV-2 (COVID-19) RNA EMMY+probe Ql (Unsp spec) Negative Normal Negative [facility] Comment on above: Order Comment: Healt hcare Worker?: Y Result Comment: Testing for SARS-CoV-2 by RT-PCR This test was developed and its performance characteristics determined by [employer]) and validated at the [facility]. This test has not been [...] is terminated or revoked sooner. PERFORMED BY: [place] [address] PATHOLOGIST COMPUTER EDUCATION TEACHER TO MADISON M.D. Performed By: #### C OVID-19 TAMERA, SOFIANEG, COVID 19 [facility] [place] #### [facility] [address] [place], [place] [id number] [facility] CT abdomen pelvis wo conon 1 CT abdomen pelvis wo con [facility] Main [place] [address] [place] [address] Scan Report Signed Patient: Andry Pierre MR#: [id number] 28 : 1960 Acct:[id number] Age/Sex: 60 / M ADM Date: 07/21/21 Loc: Room: 1P5428-5 Type: ADM INOo Attending Dr: Feliciano Hernandez [...] Ricks Jr., M.D.07/21/2021 9:15 AM Dictation Location: [place] [address] Transcribed By: [facility] 07/21/21914 Dictated By: Duke Ricks Jr, MD 07/21/21903 Signed By: 07/21/21914 Normal [facility] Coagulation Profileon 2020 aPTT Coag (Bld) [Time] 37.9 s High 25.1-36.5 [facility] Comment on above: Result Comment: PERF ORMED BY: [facility] [address] [place] [address] PATHOLOGIST COMPUTER EDUCATION TEACHER TO MADISON M.D. Performed By: #### P P #### [address] INR Coag (PPP) [Relative time] 2.0 {INR} Normal [facility] Comment on above: Result Comment: [...] 4.5 Performed By: #### P P #### [address] PT Coag (PPP) [Time] 22.5 s High 9.0-12.9 [facility] Comment on above: Performed By: #### P P #### [address] Complete Blood Count Auto Di ffon 07-21-2021 Basophils (Bld) [#/Vol] 0.1 10*3/uL Normal 0.0-0.2 [facility] Comment on above: Result Comment: PERF ORMED BY: [place] [address] PATHOLOGIST COMPUTER EDUCATION TEACHER TO MADISON M.D. Performed By: #### H EPATIC, CBC, LIPASE, BMP #### [address] Basophils/100 WBC (Bld) 0.6 % Normal . [facility] Comment on above: Performed By: #### H EPATIC, CBC, LIPASE, BMP #### [address] Eosinophils (Bld) [#/Vol] 0.4 10*3/uL Normal 0.0-0.45 [facility] Comment on above: Performed By: #### H EPATIC, CBC, LIPASE, BMP #### [address] [place] [address] [place] Eosinophils/100 WBC (Bld) 4.3 % Normal . [facility] Comment on above: Performed By: #### H EPATIC, CBC, LIPASE, BMP #### [address] Erythrocyte distribution width (RBC) [Ratio] 13.7 % Normal 12.0-14.8 [facility] Comment on above: Performed By: #### H EPATIC, CBC, LIPASE, BMP #### [address] Hematocrit (Bld) [Volume fraction] 45.9 % Normal 38.8-50.0 [facility] Comment on above: Performed By: #### H EPATIC, CBC, LIPASE, BMP #### [address] Hemoglobin (Bld) [Mass/Vol] 15.4 g/dL Normal 13.0-17.0 [facility] Comment on above: Performed By: #### H EPATIC, CBC, LIPASE, BMP #### [address] Lymphocytes (Bld) [#/Vol] 2.9 10*3/uL Normal 1.00-4.8 [facility] Comment on above: Performed By: #### H EPATIC, CBC, LIPASE, BMP #### [address] Lymphocytes/100 WBC (Bld) 28.4 % Normal . [facility] Comment on above: Performed By: #### H EPATIC, CBC, LIPASE, BMP #### [address] MCH (RBC) [Entitic mass] 32.0 pg Normal 27.5-35.2 [facility] Comment on above: Performed By: #### H EPATIC, CBC, LIPASE, BMP #### [address] MCV (RBC) [Entitic vol] 95.2 fL Normal 83.5-101 [facility] Comment on above: Performed By: #### H EPATIC, CBC, LIPASE, BMP #### [address] Mean Corpuscular HGB Conc 33.6 g/dL Normal 32.5-35.6 [facility] Comment on above: Performed By: #### H EPATIC, CBC, LIPASE, BMP #### [address] Monocytes (Bld) [#/Vol] 0.7 10*3/uL Normal 0.0-0.8 [facility] Comment on above: Performed By: #### H EPATIC, CBC, LIPASE, BMP #### [address] Monocytes/100 WBC (Bld) 6.7 % Normal . [facility] Comment on above: Performed By: #### H EPATIC, CBC, LIPASE, BMP #### [address] Neutrophils (Bld) [#/Vol] 6.0 10*3/uL Normal 1.8-7.7 [facility] Comment on above: Performed By: #### H EPATIC, CBC, LIPASE, BMP #### [address] Neutrophils/100 WBC (Bld) 60.0 % Normal . [facility] Comment on above: Performed By: #### H EPATIC, CBC, LIPASE, BMP #### [address] Nucleated RBC/100 WBC (Bld) [Ratio] 0.1 % Normal 0-0.5 [facility] Comment on above: Performed By: #### H EPATIC, CBC, LIPASE, BMP #### [address] Platelet mean volume (Bld) [Entitic vol] 8.7 fL Normal 6.6-10.1 [facility] Comment on above: Performed By: #### H EPATIC, CBC, LIPASE, BMP #### [address] [place] [address] [place] Platelets (Bld) [#/Vol] 215 10*3/uL Normal 150-450 [facility] Comment on above: Performed By: #### H EPATIC, CBC, LIPASE, BMP #### [address] RBC (Bld) [#/Vol] 4.83 10*6/uL Normal 3.90-5.60 [facility] Comment on above: Performed By: #### H EPATIC, CBC, LIPASE, BMP #### [address] WBC (Bld) [#/Vol] 10.0 10*3/uL Normal 4.5-11.0 [facility] Comment on above: Performed By: #### H EPATIC, CBC, LIPASE, BMP #### [address] Glucose Poct Glucometerson 1 Commemt1 Glu2: Cleaned Meter [facility] Comment on above: Result Comment: PERF ORMED BY: [place] [address] PATHOLOGIST COMPUTER EDUCATION TEACHER TO MADISON M.D. Performed By: #### H EPATIC, CBC, LIPASE, BMP #### [address] Glucose [Mass/Vol] 267 mg/dL Normal [facility] Comment on above: Result Comment: [facility] Glucose Reference Range is dependent on time and content of last meal. Glucose of more than 200 mg/dL in a nonstressed, ambulatory subject supports the diagnosis of Diabetes Mellitus. Performed By: #### H EPATIC, CBC, LIPASE, BMP #### [address] Commemt1 Glu2: Cleaned Meter Normal [facility] Comment on above: Result Comment: PERF ORMED BY: [place] [address] PATHOLOGIST COMPUTER EDUCATION TEACHER TO MADISON M.D. Performed By: #### H EPATIC, CBC, LIPASE, BMP #### [address] Glucose [Mass/Vol] 252 mg/dL Normal [facility] Comment on above: Result Comment: [place] Glucose Reference Range is dependent on time and content of last meal. Glucose of more than 200 mg/dL in a nonstressed, ambulatory subject supports the diagnosis of Diabetes Mellitus. Performed By: #### H EPATIC, CBC, LIPASE, BMP #### [address] Commemt1 Glu2: Cleaned Meter Normal [facility] Comment on above: Result Comment: PERF ORMED BY: [place] [address] PATHOLOGIST COMPUTER EDUCATION TEACHER TO MADISON M.D. Performed By: #### H EPATIC, CBC, LIPASE, BMP #### [address] Glucose [Mass/Vol] 100 mg/dL Normal [facility] Comment on above: Result Comment: [place] Glucose Reference Range is dependent on time and content of last meal. Glucose of more than 200 mg/dL in a nonstressed, ambulatory subject supports the diagnosis of Diabetes Mellitus. Performed By: #### H EPATIC, CBC, LIPASE, BMP #### [address] Glucose [Mass/Vol] 140 mg/dL Normal [facility] Comment on above: Result Comment: [place] Glucose Reference Range is dependent on time and content of last meal. Glucose of more than 200 mg/dL in a nonstressed, ambulatory subject supports the diagnosis of Diabetes Mellitus. PERFORMED BY: [place] [address] PATHOLOGIST COMPUTER EDUCATION TEACHER TO MADISON M.D. Performed By: #### H EPATIC, CBC, LIPASE, BMP #### [address] Hepatic Panelon 07-21-2021 Albumin [Mass/Vol] 3.5 g/dL Normal 3.2-5.5 [facility] Comment on above: Performed By: #### H EPATIC, CBC, LIPASE, BMP #### [facility] [address] [place] [address] Albumin/Globulin [Mass ratio] 1.1 {ratio} Normal [facility] Comment on above: Performed By: #### H EPATIC, CBC, LIPASE, BMP #### [facility] [address] [place] [address] ALP [Catalytic activity/Vol] 115 U/L High 32-92 [facility] Comment on above: Performed By: #### H EPATIC, CBC, LIPASE, BMP #### [facility] [address] [place] [address] ALT [Catalytic activity/Vol] 30 U/L Normal 10-60 [facility] Comment on above: Performed By: #### H EPATIC, CBC, LIPASE, BMP #### [facility] [address] [place] [address] AST [Catalytic activity/Vol] 19 U/L Normal 10-42 [facility] Comment on above: Performed By: #### H EPATIC, CBC, LIPASE, BMP #### [facility] [address] [place] [address] Bilirubin [Mass/Vol] 0.7 mg/dL Normal 0.3-1.2 [facility] Comment on above: Performed By: #### H EPATIC, CBC, LIPASE, BMP #### [facility] [address] [place] [address] Bilirubin,Indirect Not performed Normal [facility] Comment on above: Performed By: #### H EPATIC, CBC, LIPASE, BMP #### [facility] [address] [place] [address] Bilirubin.indirect [Mass/Vol] mg/dL Normal 0.0-0.4 [facility] Comment on above: Performed By: #### H EPATIC, CBC, LIPASE, BMP #### [facility] [address] [place] [address] Globulin (S) [Mass/Vol] 3.2 g/dL Normal [facility] Comment on above: Performed By: #### H EPATIC, CBC, LIPASE, BMP #### [address] Protein [Mass/Vol] 6.7 g/dL Normal 6.1-7.9 [facility] Comment on above: Performed By: #### H EPATIC, CBC, LIPASE, BMP #### [address] Lactic Acidon 07-21-2021 Lactate [Moles/Vol] 1.2 mmol/L Normal 0.5-2.2 [facility] Comment on above: Result Comment: PERF ORMED BY: [place] [address] PATHOLOGIST COMPUTER EDUCATION TEACHER TO MADISON M.D. Performed By: #### L ACTIC #### [address] Lipaseon 07-21-2021 Lipase [Catalytic activity/Vol] 43.0 U/L Normal 22-51 [facility] Comment on above: Result Comment: PERF ORMED BY: [place] [address] PATHOLOGIST COMPUTER EDUCATION TEACHER TO [place]ADISON M.D. Performed By: #### H EPATIC, CBC, LIPASE, BMP #### [address] Tamera Ag Negativeon 07-21-20 21 Tamera Ag Negative Negative Normal Negative [facility] Comment on above: Result Comment: This is a duplicate Tamera SARS Antigen (GIOVANNA) result to be used for statistical tracking purpose only. PERFORMED BY: [place] [address] PATHOLOGIST COMPUTER EDUCATION TEACHER TO MADISON M.D. Performed By: #### C OVID-19 TAMERA, SOFIANEG, COVID 19 [facility] [place] #### [address] Urinalysison 07-21-2021 Appearance (U) Clear Normal Clear [facility] Comment on above: Order Comment: Name Collection Type:: Clean-Voided Midstream Performed By: #### U A #### [facility] [address] [place] [address] [place] Bilirubin,Urine Negative Normal Negative [facility] Comment on above: Order Comment: Name Collection Type:: Clean-Voided Midstream Performed By: #### U A #### [facility] [address] [place] [address] [place] Color (U) Yellow Normal Yellow [facility] Comment on above: Order Comment: Name Collection Type:: Clean-Voided Midstream Performed By: #### U A #### [facility] [address] [place] [address] [place] Glucose Ql (U) >=1000 High Normal [facility] Comment on above: Order Comment: Name Collection Type:: Clean-Voided Midstream Performed By: #### U A #### [facility] [address] [place] [address] [place] Ketones Ql (U) Negative Normal Negative [facility] Comment on above: Order Comment: Name Collection Type:: Clean-Voided Midstream Performed By: #### U A #### [facility] [address] [place] [address] [place] Leukocyte esterase Test strip Ql (U) Negative Normal Negative [facility] Comment on above: Order Comment: Name Collection Type:: Clean-Voided Midstream Performed By: #### U A #### [facility] [address] [place] [address] [place] Nitrite,Urine Negative Normal Negative [facility] Comment on above: Order Comment: Name Collection Type:: Clean-Voided Midstream Performed By: #### U A #### [facility] [address] [place] [address] [place] Occult Blood,Urine Negative Normal Negative [facility] Comment on above: Order Comment: Name Collection Type:: Clean-Voided Midstream Result Comment: PERF ORMED BY: [place] [address] PATHOLOGIST COMPUTER EDUCATION TEACHER JIANLAN SUN M.D. Performed By: #### U A #### [facility] [address] pH (U) 6.5 [pH] Normal 5.0-9.0 [facility] Comment on above: Order Comment: Name Collection Type:: Clean-Voided Midstream Performed By: #### U A #### [address] Protein,Urine Negative Normal Negative [facility] Comment on above: Order Comment: Name Collection Type:: Clean-Voided Midstream Performed By: #### U A #### [address] Specificy [place],Urine 1.026 Normal 1.001-1.030 [facility] Comment on above: Order Comment: Name Collection Type:: Clean-Voided Midstream Performed By: #### U A #### [address] Urobilinogen,Urine Normal Normal Normal [facility] Comment on above: Order Comment: Name Collection Type:: Clean-Voided Midstream Performed By: #### U A #### [address] General Surgery Office/Clini c Noteon [...] hematuria Head injury Heart disease History of dianeticist anticoagulant use History of stroke Hyperlipidemia Hypertension [...] Pantoprazole [address] Tab Potassium Chloride (Abi-Efhw-Rgf M20) 20 mEq oral tablet, extended release [...] 30 days ago (more content not included)... Normal [facility] Comment on above: Result Comment: Elec tronically Signed By: NOE GEORGE, Andry Daniel\Date and Time Signed: 05/31/21 11:26 EDT Ambulatory Clinical Summaryo n 05-29-2021 Ambulatory Clinical Summary {[id number]}CD:6143 68 Normal [facility] Outside Colonoscopyon 2020 Outside Colonoscopy [id number]#1.00CD:127 Normal [facility] Pathology Noteon 05-25-2021 Pathology Note [id number]#1.00CD:127 Normal [facility] [place] [facility] [facility] [place] 23[place] 2021 Luis Mccormick, [facility] [place] [address] Re: ANDRY PIERRE Date of : 1960 Thank you for your referral of Andry Pierre who was seen on consultation on May 18, 2021, for Right upper quadrant pain and rectal bleeding, nausea, vomiting, and constipation. I have enclosed my consultation notes for your review. I will be happy to follow Andry should his symptoms persist. Sincerely, Andry Adames MD General Surgery [facility] Consent for Procedure/Surger yon 05-21-2021 Consent for Procedure/Surgery [id number]#1.00CD:127 [facility] Immunization Recordson 05-21 Immunization Records [id number]#1.00CD:127 Normal [facility] Ambulatory Clinical Summaryo n 05-18-2021 Ambulatory Clinical Summary {[id number]}CD:6143 68 Normal [facility] General Surgery Office/Clini c Noteon 05-18-2021 General Surgery Office/Clinic Note HPI Staff Est patient , RUQ pain x 8 wks , u/s done 05/03/21 @ [facility]. recent rectal bleeding currently having nausea , [...] in remote past and was hospitalized in [place] with a torn muscle; only abdominal operation RIHR x 3; recent CT scan of abdomen wnl; GB US with possible small stones adherent to fundus of gallbladder, no wall thickening or ductal dilation; normal HIDA scan; all studies personally reviewed; no h/o jaundice or pancreatitis; poor po intake, with mild recent wt loss; patient reports that he had a colonoscopy at [facility] within the last 5 years, but no [...] hematuria Head injury Heart disease History of dianeticist anticoagulant use History of stroke Hyperlipidemia Hypertension Liver cancer Nausea and vomiting Neck pain Nocturia Parkinsons Retention of urine seizures Seizures Urge incontinence Urinary retention Urinary urgency Historical Arthritis Procedure/Surgical History Implantation of electronic stimulator in 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 [facility] Comment on above: Result Comment: Elec tronically Signed By: NOE GEORGE, Andry Daniel\Date and Time Signed: 05/18/21 15:05 EDT RAD - CT Reporton 05-17-2021 RAD - CT Report [id number]#1.00CD:127 [facility] RAD - MISCon 05-17-2021 RAD - MISC [id number]#1.00CD:127 [facility] RAD - MISC [id number]#1.00CD:127 [facility] RAD - Ultrasound Reporton RAD - Ultrasound Report [id number]#1.00CD:127 [facility] RAD - Ultrasound Reporton RAD - Ultrasound Report [id number]#1.00CD:127 [facility] Physician Referralon 021 Physician Referral [id number]#1.00CD:127 [facility] Provider Letter [facility] Provider Letter [facility] March 23, 2021 Luis Mccormick, [facility] [place] [address] [place] [address] Re: ANDRY PIERRE Date of : 1960 Thank you for your referral of Andry Pierre who was seen on consultation of excision of lump on the neck on March 14, 2021. I have enclosed my consultation notes for your review. I will be happy to follow Andry should his symptoms persist. Sincerely, Andry Adames MD General Surgery [facility] Ambulatory Clinical Summaryo n 03-14-2021 Ambulatory Clinical Summary {[id number]}CD:6143 68 Flash [facility] Patient Educationon 03-14-20 Patient Education Exercising to Lose W eight [...] your health care provider or diet and public health nutritionist (dietitian). This may include: ? Eating fewer [...] U.S. Department of Health and Human Services: www.hhs.gov ? Centers for Disease Control and Prevention [...] calories than (more content not included)... Normal [facility] Physician Referralon Physician Referral [id number]#1.00CD:127 Normal [facility] Patient Correspondenceon Patient Correspondence [id number]#1.00CD:127 [facility] Reminderson 01-10-2021 Reminders - From: Rosa Cuellar [...] reg/cert mail letters sent?LG From: Rosa Cuellar (EU - Recalls Karlie) To: Larry BARFIELD MD; Cc: Rosa [...] sign. LR Letter mailed regular/certified letter today. Normal [facility] Provider Letteron 01-09-2021 Provider Letter (Inserted Image. Pina ble to display) January 09, 2021 ANDRY PIERRE [address] [place] [address] ANDRY PIERRE 1960 SENT VIA CERTIFIED AND REGULAR MAIL Dear Mr. Pierre, This letter is to inform you the providers of [facility] will no longer be responsible for your routine medical care due to your noncompliance. Emergency care only will be provided for the thirty (30) days following this letter. During this time period we suggest that you find another physician for your medical needs. A listing of area physicians can be found on [facility]'s website at [email or web address] or you may contact your health plan. We will be glad to forward your records to your new physician as long as we receive a signed release of records form. Sincerely, Larry Barfield M.D., GadielCSamia. [facility] [address] [place] [address] [facility] Patient Correspondenceon Patient Correspondence [id number]#1.00CD:127 Normal [facility] Provider Letter Office[facility] 11-24-2020 Provider Letter [facility] November 24, 2020 ANDRY PIERRE [address] [place] [address] ANDRY PIERRE 1960 SENT VIA CERTIFIED AND [...] to your noncompliance. Sincerely, Larry Barfield M.D., Bernadine.A.C.S. [facility] [address] [place] [address] [facility] Reminderson 08-02-2020 Reminders - From: Radha King MA To: EU - Clinical; Sent: 07/19/2020 14:09:34 EDT Show up: 08/02/2020 14:09:00 EDT Subject: fish/cytol Reminder/Recall fish/cytol done 07/19/2020 done, sent msg to prw to review results Normal [facility] Outside Cardiovascularon Outside Cardiovascular [id number]#1.00CD:127 Normal [facility] Outside Radiologyon 08-01-20 20 Outside Radiology [id number]#1.00CD:127 Normal [facility] Outside Radiology [id number]#1.00CD:127 Normal [facility] Progress Note-Physicianon Progress Note-Physician [id number]#1.00CD:127 Normal [facility] Urology Office/Clinic Noteon 07-25-2020 Urology Office/Clinic Note Chief Complaint New Pt. HPI Staff New Pt. [facility] on 07/10/2020 due to leaking around catheter. US of kidneys done 11/17/2019. CT SCAN done 07/04/2020. Pt. states after having a Ct scan Pt. was not able to urinate and had catheter placed. Pt. does not have a history of urine retention. 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 Pt. states by a Doctor in [place] told Pt. had prostates cancer. Pt. states no biopsy was done, just a blood test. PSA was 1.39 done 07/07/20. Cath was removed at [facility] this morning. Dysuria: denies pain or burning Incomplete bladder emptying: yes pt had cath for 2 weeks placed by [facility], cath was removed this morning at [facility] Hematuria: pt states he had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 not included)... [facility] 09-12-2023 Miscellaneous Notes spoke with pt [...] 01/21/22 with SN documented in this encounter [facility] 08-19-2023 Note [place] [facility] Consul t Note Reason for Consultation: [...] breath, lightheadedness, SIMMONS, orthopnea, worsening LE edema. 9/23/[address] Rodriguez HPI: Andry Pierre is [...] in the morning. Coumadin levels followed by [facility] allopurinol (Zyloprim) 100 mg tablet Take 100 mg by mouth 1 (one) time each day at the same time. amLODIPine (Norvasc) 5 mg tablet Take 1 tablet by mouth in the morning. aspirin 81 mg EC tablet Take 1 tablet by mouth in the morning. baclofen (Lioresal) 10 mg tablet TAKE 1/2-1 TABLET BY MOUT (more content not included)... [facility] 08-19-2023 Note Patient here for [...] All other systems reviewed and are negative. [facility] 07-10-2023 Miscellaneous Notes Spoke with hr representative from Dr. Kumar's office, they report [...] Rose's signature (tp). documented in this encounter [facility] 05-21-2023 Note [facility] Consul [facility] Note Reason for Consultation: [...] in the morning. Coumadin levels followed by [facility] [DISCONTINUED] NIFEdipine XL (Procardia XL) 90 mg 24 hr tablet TAKE 1 TABLET BY MOUTH EVERY DAY 90 tablet 2 No current facility-administered medications on file prior to visit. ROS: Cardio Basic Cardiovascular Symptoms: no l (more content not included)... [facility] 02-20-2023 Note Patient is here toda [...] All other systems reviewed and are negative. [facility] 02-20-2023 Note [facility] Consul [place] Note Reason for Consultation: Syncope HPI: patient here s/p loop implant 01/09/2023 he had a wound check/ reported he had multiple episodes of heart fluttering and weakness. His legs gave out but he does not think he passed out but he did not feel well for about 90 minutes. loop device reviewedAnd there were several bradycardic events some nocturnal and some in the supervisor bridges and buildings. No marked patient events he is on [...] in the morning. Coumadin levels followed by [facility] oxybutynin XL (Ditropan-XL) 10 mg 24 hr tablet Take 10 mg by mouth in the morning. No current facility-administered medications on file alia (more content not included)... [facility] 01-17-2023 Note Patient here for wou nd check s/p loop recorder implant 01/09/[address] Rodriguez[address] [facility] 01-17-2023 Note Cardiovascular Medic ine [facility] SUBJECTIVE Chief Complaint Patient presents with Wound [...] Benign shuddering attacks CHF (congestive heart failure) ([facility]) Chronic deep vein thrombosis (DVT) of proximal vein of both lower extremities ([facility]) CKD (chronic kidney disease) Congenital heart disease COPD (chronic obstructive pulmonary disease) ([facility]) History of DVT (deep vein thrombosis) Diastolic dysfunction Difficult intravenous access Dyslipidemia Edema of lower extremity Elevated PSA Esophageal reflux Essential hypertension Hematuria, gross Hyperlipidemia Hypokalemia Low back pain BMI 45.0-49.9, adult ([facility]) Obstructive sleep apnea syndrome Other diseases of pharynx, not elsewhere classified(478.29) Parkinson's disease ([facility]) History of pulmonary embolus (PE) Recurrent major depression in partial remission ([facility]) SOB (shortness of breath) Subarachnoid bleed ([facility]) Tracheal stenosis Tremor Type 2 diabetes mellitus without complication ([facility]) Urge incontinence of urine Urinary tract infection without hematuria Volume overload Syncope and collapse 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 ([facility]) Past Medical History: Diagnosis Date Chronic kidney disease Diabetes mellitus ([facility]) Dyslipidemia Hypertension Obstructive sleep apnea Family History [...] in the morning. Coumadin levels followed by [facility], Disp: , Rfl: Physical Exam Constitutional: Appearance: Normal appearance. He is obese. HENT: Head: Normocephalic and atraumatic. Mouth/Throat: Mouth: Mucous membranes are moist. Pharynx: Oropharynx is clear. Eyes: Extraocular Movements: Extraocular movements intact. Pupils: Pupils are equal, round, and reactive to light. C (more content not included)... [facility] 01-09-2023 Note LOOP IMPLANT PROCEDU RE NOTE DATE OF PROCEDURE: 01/09/2023 PERFORMING PHYSICIAN: Dr. Lemuel Rodriguez COMMUTER TRAIN OPERATOR: Dr Lucy Bella (Primary) INDICATIONS FOR PROCEDURE: [...] the sternum on the left using the [employer] tool. The loop recorder was then injected [...] the incision. Lemuel Rodriguez MD Cardiac Electrophysiology. [facility] 01-06-2023 Note Patient here for 6 [...] All other systems reviewed and are negative. [facility] 01-06-2023 Note [place] [facility] Consul [place] Note Reason for Consultation: [...] in the morning and at bedtime. HYDROcodone-acetaminophen (Holbrook) 5-325 mg tablet Take 1 tablet by [...] in the morning. Coumadin levels followed by [facility] No current facility-administered medications on file prior [...] no dry mouth, (more content not included)... [facility] 01-06-2023 Note [facility] Consul t Note Reason for Consultation: [...] in the morning and at bedtime. HYDROcodone-acetaminophen (Holbrook) 5-325 mg tablet Take 1 tablet by [...] in the morning. Coumadin levels followed by [facility] No current facility-administered medications on file prior [...] no dry mouth, (more content not included)... [facility] 01-24-2022 Miscellaneous Notes Spoke with patient, [...] Kerwin Brito RN documented in this encounter [facility] 01-22-2022 History of Present illness Narrative [...] By Kerwin Brito RN In Department: NEUROLOGICAL BUDDHISM documented in this encounter [facility] 01-21-2022 History of Present illness Narrative [...] Glenn Rose MD documented in this encounter [facility] 01-21-2022 Instructions Reema Elizabeth PA-C - 01/21/2022 7:53 AM EDT PATIENT PREOPERATIVE INSTRUCTIONS Glenn Rose MD has scheduled you for your procedure at this surgery center: [facility] [place] Scheduling Office: [phone] --[address] [place] [address]. Please read below carefully for your personalized [...] Procedures: - YOU MUST HAVE A RESPONSIBLE BURRITO MAKER TAKE YOU HOME. A SUPERVISOR MALTED MILK OR EXTRACORPOREAL CIRCULATION SPECIALIST CANNOT BE MADE A RESPONSIBLE BURRITO MAKER. - We recommend that a responsible person [...] call the Friday before. Your surgeon s thermoforming operator will tell you what time to call the office. - If you have not reached the departmental thermoforming operator by 5 P.M., call [phone] after 5 P.M. the day before your surgery. Please be aware that emergency situations arise, which may delay or change your surgical time. If this happens, we will notify you as soon as possible and regret any inconvenience. If you already have an Advance Directive, please fax a copy to [phone] or email to for it to be [...] Reema Elizabeth PA-C documented in this encounter [facility] 01-21-2022 History and physical note HISTORY [...] 40 Recurrent Major Depression in Partial Remission ([facility]) Difficult Intravenous Access Obstructive Sleep Apnea Syndrome Parkinson's Disease ([facility]) Copd (Chronic Obstructive Pulmonary Disease) ([facility]) Tobacco Use Chf (Congestive Heart Failure) ([facility]) Ckd (Chronic Kidney Disease) Subjective [...] Benign shuddering attacks CHF (congestive heart failure) ([facility]) ? CKD (chronic kidney disease) 01/21/2022 COPD (chronic obstructive pulmonary disease) ([facility]) 01/21/2022 Depression recent hospitalization because of depression Difficult intravenous access 01/21/2022 DVT (deep venous thrombosis) ([facility]) 2000 multiple Esophageal reflux IDDM (insulin dependent diabetes mellitus) Kidney failure Lumbago Obstructive sleep apnea syndrome Other diseases of pharynx, not elsewhere classified(478.29) Parkinson's disease ([facility]) Tobacco use 01/21/2022 Tracheal stenosis Type II [...] Prior to Admission medications as of 01/21/22 7963 Medication Sig Last Dose Taking ALOE VERA [...] +Tobacco chew use Cardiovascular: Negative for Recent NM, Angina, Arrhythmia, CAD, Chest Pain +DVT, PE [...] wear CPAP. COPD (chronic obstructive pulmonary disease) ([facility]) Stable, on albuterol PRN, Singulair. States he has SOB with exertion in cold weather. Denies recent use of albuterol, cough or SOB. Lungs CTA on exam. Tobacco use Rare use of tobacco chew products. 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 ESOPHAGEAL REFLUX Stable, on rx. Pulmonary embolus with infarction ([facility]) H/o PE/DVT in 2006, 2017. On warfarin, states his PCP is giving lovenox bridging instructions for surgery. CHF (congestive heart failure) ([facility]) EF 75% on echocardiogram 10/08/2018. Right heart [...] initiated at this time: Requested records from asw specialist for chart completeness. The Following Tests/Procedures Have [...] TIME: 7:24 AM documented in this encounter [facility] 01-08-2022 Miscellaneous Notes Spoke with patient, [...] time today. He was last seen in [facility] by Ming 11/08/2019. Number to return call [phone] Okay to leave a message ? Yes Last office visit 11/2019 with JS Next office visit with not scheduled Thank you calling [facility]. You will receive a return call within 48 hours ( or 2 business days if close to the weekend). If you feel that this is an urgent issue and needs immediate attention, it is recommended that you contact your primary care provider office or proceed to your nearest Urgent Care Center of Emergency Room ED for evaluation/treatment. documented in this encounter [facility] 11-26-2021 Evaluation note Encounter Date Diagnosis Assessment Notes Nov, Stage 3b chronic kidney disease (CKD) (ICD-10 - N18.32) [facility] Other 02-08-2022 Evaluation note* Encounter Date Diagnosis [...] 1 diabetes mellitus (ICD-10 - E10.21) Hemoglobin K0a-qwin is below 7% to attenuate chronic kidney [...] I advised the patient to go to [facility] emergency room Nov, Pure hypercholestero lemia (ICD-10 - E78.00) LDL goal in chronic kidney disease patient is less than 100 to reduce the risk of cardiovascular disease. Patient is working with his PCP/asw specialist for this purpose on statin. [facility] Other 10-22-2021 NoteMR#: [id number] I [facility] Pt. Name: Andry Pierre Admitted: 07/21/2021 [...] Russ MD Date Trans: 07/27/2021 09:41 Sona/michaela [id number] cc: Luis Mccormick M.D. [address] [address] Chief Complaint Consultation for lump [...] hematuria Head injury Heart disease History of dianeticist anticoagulant use History of stroke Hyperlipidemia Hypertension [...] tablet, extended release oxybutynin (more content not included)...[facility]Comment [facility] above:Result Comment: Electronically Signed By: NOE GEORGE, Andry Daniel\Date and Time Signed: 03/22/21 10:59 EDTEvaluation note* Diagnosis Pre-op evaluation- Primary Preoperative examination, unspecified Essential tremor Essential and other specified forms of tremor Type 2 diabetes mellitus with other specified complication, with long-term current use of insulin ([facility]) Obesity, Class III, BMI >= 40 Morbid obesity Essential hypertension Unspecified essential hypertension Difficult intravenous access Other specified conditions influencing health status Acute, but ill-defined, cerebrovascular disease Obstructive sleep apnea syndrome Obstructive sleep apnea (adult) (pediatric) Chronic obstructive pulmonary disease, unspecified COPD type ([facility]) Tobacco use Tobacco use disorder Tracheal stenosis Other diseases of trachea and bronchus Gastroesophageal reflux disease, unspecified whether esophagitis present Pulmonary embolus with infarction ([facility]) Other pulmonary embolism and infarction Congestive heart failure, unspecified HF chronicity, unspecified heart failure type ([facility]) Stage 3 chronic kidney disease, unspecified whether stage 3a or 3b CKD ([facility]) Essential tremor Essential and other specified forms of tremor Essential tremor Essential and other specified forms of tremor [facility] Diagnosis 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 Essential tremor Essential and other specified forms of tremor [facility]* Diagnosis Essential tremor- Primary Essential and other specified forms of tremor Essential tremor Essential and other specified forms of tremor documented in this encounter [facility] noteNo [employer] Other Evaluation note* Diagnosis Diabetic polyneuropathy associated with type 2 diabetes mellitus (HCC) [E11.42]- Primary Weakness Other malaise and fatigue Obesity, Class III, BMI 40-49.9 (morbid obesity) ([facility]) Morbid obesity documented in this encounter [facility] general Narrative - Reported* Type Description Date [...] Hospitalization History CELLULITUS Hospitalization History HEART FAILURE [facility] Other Summary Purpose Family History No Family History Records FoundNo Family History Records FoundNo Family History Records FoundNo Family History Records FoundNo Family History Records FoundNo Family History Records FoundNo Family History Records FoundNo Family History Records Found Advance Directives No Advanced Directives Records FoundDocuments on File Type Date Recorded Patient Residential Sales Consultant Expl anation Advance Directive(s) Advance Directive(s) 01/05/2020 5:50 AM Advance Directive(s) 06/24/2019 10:59 AM Advance Directive(s) 06/24/2019 2:04 PM Advance Directive(s) 06/24/2019 2:00 PM Advance Directive(s) 06/18/2019 12:37 PM Advance Directive(s) 07/18/2016 2:43 PM Documents on File Type Date Recorded Patient Residential Sales Consultant Expl anation Advance Directive(s) 06/24/2019 2:00 PM Additional Source Comments (unrecognized sect ion and content) No Status Records FoundNo Status Records FoundNo Status Records FoundNo Status Records FoundNo Status Records FoundNo Status Records FoundNo Status Records FoundNo Status Records Found INFORMATION SOURCE (unrecogn ized section and content) DATE CREATED AUTHOR 06/01/2021 [facility] DATE CREATED AUTHOR AUTHOR'S ORGANIZ ATION 10/30/[address] [facility] DATE CREATED AUTHOR AUTHOR'S ORGANIZ ATION 05/31/2022 [facility] DATE CREATED AUTHOR AUTHOR'S ORGANIZ ATION 03/14/2023 [facility] DATE CREATED AUTHOR AUTHOR'S ORGANIZ ATION 08/14/2023 [facility] DATE CREATED AUTHOR AUTHOR'S ORGANIZ ATION 10/19/2023 [facility] DATE CREATED AUTHOR AUTHOR'S ORGANIZ ATION 11/08/2023 [facility] DATE CREATED AUTHOR AUTHOR'S ORGANIZ ATION 11/10/2023 [facility] Source Comments (unrecognize d section and content) In the event this informatio n is protected by the Federal Confidentiality of Alcohol and Drug Abuse Patient Records regulations: The Federal rules restrict any use of the information to criminally investigate or prosecute any alcohol or drug abuse patient.[facility] HospitalIn the event this information is protected by the Federal Confidentiality of Alcohol and Drug Abuse Patient Records regulations: The Federal rules restrict any use of the information to criminally investigate or prosecute any alcohol or drug abuse patient.[facility] HospitalIn the event this information is protected by the Federal Confidentiality of Alcohol and Drug Abuse Patient Records regulations: The Federal rules restrict any use of the information to criminally investigate or prosecute any alcohol or drug abuse patient.[facility] HospitalIn the event this information is protected by the Federal Confidentiality of Alcohol and Drug Abuse Patient Records regulations: The Federal rules restrict any use of the information to criminally investigate or prosecute any alcohol or drug abuse patient.[facility] HospitalIn the event this information is protected by the Federal Confidentiality of Alcohol and Drug Abuse Patient Records regulations: The Federal rules restrict any use of the information to criminally investigate or prosecute any alcohol or drug abuse patient.[facility] HospitalIn the event this information is protected by the Federal Confidentiality of Alcohol and Drug Abuse Patient Records regulations: The Federal rules restrict any use of the information to criminally investigate or prosecute any alcohol or drug abuse patient.[facility] HospitalIn the event this information is protected by the Federal Confidentiality of Alcohol and Drug Abuse Patient Records regulations: The Federal rules restrict any use of the information to criminally investigate or prosecute any alcohol or drug abuse patient.[facility] HospitalIn the event this information is protected by the Federal Confidentiality of Alcohol and Drug Abuse Patient Records regulations: The Federal rules restrict any use of the information to criminally investigate or prosecute any alcohol or drug abuse patient.[facility] HospitalIn the event this information is protected by the Federal Confidentiality of Alcohol and Drug Abuse Patient Records regulations: The Federal rules restrict any use of the information to criminally investigate or prosecute any alcohol or drug abuse patient.[facility] Reason for Visit (unrecogniz ed section and content) Reason Comments DBS MARIA G message Reason Comments Pre-Op Visit Reason Comments Results Reason Comments DBS problem Reason Comments New Patient Consult Specialty Diagnoses / Procedures Referred By Felecia casillas Referred To Contact Neurology Diagnoses Weakness Procedures CONSULT TO NEUROLOGY OFFICE/OUTPATIENT NEW HIGH MDM 60-74 MINUTES Shane Parham PA-C [address] [place] [address] Referral ID Status Reason Start Date Expiration Date V isits Requested Visits Authorized [id number] Closed PCP Requested Referral 09/19/2023 09/18/2024 1 1 Care Teams (unrecognized sec tion and content) Shoe Patternmaker Relationship Specialty Start Date End Date Luis Mccormick MD PCP - General Family Practice 07/15/16 Shoe Patternmaker Relationship Specialty Start Date End Date Luis Mccormick MD [address] [place] [address] PCP - General Family Practice 07/15/16 Saúl Lunsford MD [address] [place] [address] Cardiology 01/21/22 Shoe Patternmaker Relationship Specialty Start Date End Date Luis Mccormick MD [address] [place] [address] PCP - General Family Practice 07/15/16 Saúl Lunsford MD [address] [place] [facility] [place] [place] [address] Cardiology 01/21/22 Shoe Patternmaker Relationship Specialty Start Date End Date Luis Mccormick MD [address] [place] [facility] [place] [address] PCP - General Family Practice 07/15/16 Saúl Lunsford MD [address] [place] [facility] [place] [place] [address] Cardiology 01/21/22 Shoe Patternmaker Relationship Specialty Start Date End Date Luis Mccormick MD [address] [place] [facility] [place] [place] [address] PCP - General Family Practice 07/15/16 [facility] [address] [place] [facility] [place] [place] [address] Cardiology 01/21/22 Shoe Patternmaker Relationship Specialty Start Date End Date Luis Mccormick MD PCP - General Family Medicine 07/15/16 Saúl Lunsford MD [address] [place] [facility] [place] [place] [address] Cardiology 01/21/22 Shoe Patternmaker Relationship Specialty Start Date End Date Luis Mccormick MD PCP - General Family Medicine 07/15/16 Saúl Lunsford MD [address] [place] [facility] [place] [address] Cardiology 01/21/22 Shoe Patternmaker Relationship Specialty Start Date End Date Luis Mccormick MD PCP - General Family Medicine 07/15/16 Saúl Lunsford MD [address] [place] [id number] Cardiology 01/21/22 FOR RECORDS PERTAINING TO PATIENTS [...] BE BASED ON THE PRIMARY CLINICAL RECORDS. [employer] [facility]. provides no warranty or guarantee of the accuracy or completeness of information in this document.
--- NOTE | 2023-11-11 08:03 | US_ITS ---
The [address] [address] Patient Name: ANDRY PIERRE MRN: [id number] date: 1960 Sex: M Assigned Patient Location: [facility] Current Patient Location: [facility] Accession/Order Number: [id number] Exam Date: 11/11/2023 08:04 Report Date: 11/11/2023 10:04 At the request of: LUIS MCCORMICK Procedure: US venous doppler UE LT EXAMINATION: US venous doppler UE LT HISTORY: Essential Tremor G25.0 COMPARISON: No relevant comparison available. FINDINGS: REGION: Left upper extremity THROMBI: None. COMPRESSIBILITY: Normal compressibility. FLOW: Normal waveform and antegrade flow between 5 and 20 cm/s. OTHER: None. US/US venous doppler UE LT IMPRESSION: 1. No deep vein thrombus within the left upper extremity. Electronically authenticated by: ROCK AVELAR Date: 11/11/2023 10:04
== END 2023-11-11 07:55 | disposition home or self-care (01) ==
LOC: RAD 07:56
PROVIDERS: PCP Family Medicine; Visit Provider Family Medicine
DX: R60.0 Localized edema (principal)
CPT/HCPCS: 93971

== ENCOUNTER 2023-11-13 08:11 | Outpatient (OUT) | payer MEDICARE, SELFPAY ==
--- OUTSIDE RECORDS SUMMARY | 2023-11-13 08:13 | XMS_ITS | CCD ---
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 guideline. JCEM. 2010; 96(7):1911-30. Performed By: #### V ITADLC #### [facility] [address] [address] [address] Miah Buck XR CHEST 2 Von [...] ROCK AVELAR Date: 2022-05-24 07:37 Normal [facility] BNPon 05-23-2022 Natriuretic peptide B (Bld) [Mass/Vol] 53.0 pg/mL Normal <=900.0 [facility] Comment on above: Performed By: #### M G, CMP, BNP, TSH, CRP #### [facility] [address] [address] [address] Miah Buck CBC AUTO DIFFon 05-23-2022 BASO # 0.1 103/ul Normal 0.0-0.1 [facility] Comment on above: Performed By: #### A 1C #### [facility] [address] [address] [address] Miah Buck Basophils/100 WBC (Bld) 0.7 % Normal 0.2-2.0 [facility] Comment on above: Performed By: #### A 1C #### [facility] [address] [address] [address] Miah Buck EO # 0.3 103/ul Normal 0.0-0.7 [facility] Comment on above: Performed By: #### A 1C #### [facility] [address] [address] [address] Miah Buck Eosinophils/100 WBC (Bld) 4.0 % Normal 0.9-7.0 [facility] Comment on above: Performed By: #### A 1C #### [facility] [address] [place] [address] Dr. Miah Buck Erythrocyte distribution width (RBC) [Ratio] 13.4 % Normal 11.0-15.0 [facility] Comment on above: Performed By: #### A 1C #### [facility] [address] [place] [address] Dr. Miah Buck Hematocrit (Bld) [Volume fraction] 46.1 % Normal 42.0-54.0 [facility] Comment on above: Performed By: #### A 1C #### [facility] [address] [place] [address] Dr. Miah Buck Hemoglobin (Bld) [Mass/Vol] 15.5 g/dL Normal 14.0-18.0 [facility] Comment on above: Performed By: #### A 1C #### [facility] [address] [place] [address] Dr. Miah Buck IG # 0.03 10e3/ul Normal 0.00-0.03 [facility] Comment on above: Performed By: #### A 1C #### [facility] [address] [place] [address] Dr. Miah Buck IG % 0.4 % Normal 0.0-0.5 [facility] Comment on above: Performed By: #### A 1C #### [facility] [address] [place] [address] Dr. Miah Buck LYMPH # 2.0 103/ul Normal 1.2-3.8 [facility] Comment on above: Performed By: #### A 1C #### [facility] [address] [place] [address] Dr. Miah Buck Lymphocytes/100 WBC (Bld) 28.1 % Normal 20.5-60.0 [facility] Comment on above: Performed By: #### A 1C #### [facility] [address] [place] [address] Dr. Miah Buck MANUAL DIFF REQ NO Normal [facility] Comment on above: Performed By: #### A 1C #### [facility] [address] [place] [address] Dr. Miah Buck MCH (RBC) [Entitic mass] 31.8 pg Normal 25.9-34.0 [facility] Comment on above: Performed By: #### A 1C #### [facility] [address] [place] [address] Dr. Miah Buck MCHC (RBC) [Mass/Vol] 33.6 g/dL Normal 29.9-35.2 [facility] Comment on above: Performed By: #### A 1C #### [facility] [address] [place] [address] Dr. Miah Buck MCV (RBC) [Entitic vol] 94.7 fL Critically high 80.0-94.0 [facility] Comment on above: Performed By: #### A 1C #### [facility] [address] [place] [address] Dr. Miah Bukc MONO # 0.5 103/ul Normal 0.3-0.8 [facility] Comment on above: Performed By: #### A 1C #### [facility] [address] [place] [address] Dr. Miah Buck Monocytes/100 WBC (Bld) 7.1 % Normal 1.7-12.0 [facility] Comment on above: Performed By: #### A 1C #### [facility] [address] [place] [address] Dr. Miah Buck NEUT # 4.3 103/ul Normal 1.4-6.5 [facility] Comment on above: Performed By: #### A 1C #### [facility] [address] [place] [address] Dr. Miah Buck Neutrophils/100 WBC (Bld) 59.7 % Normal 43.0-75.0 [facility] Comment on above: Performed By: #### A 1C #### [facility] [address] [place] [address] Dr. Miah Buck Platelet mean volume (Bld) [Entitic vol] 10.6 fL Normal 9.5-13.5 [facility] Comment on above: Performed By: #### A 1C #### [facility] [address] [address] [address] Miah Buck PLT 209 103/ul Normal 150-450 [facility] Comment on above: Performed By: #### A 1C #### [facility] [address] [address] [address] Miah Buck RBC 4.87 106/ul Normal 4.70-6.10 [facility] Comment on above: Performed By: #### A 1C #### [facility] [address] [address] [address] Miah Buck WBC 7.2 103/ul Normal 4.0-11.0 [facility] Comment on above: Performed By: #### A 1C #### [facility] [address] [place] [address] Dr. Miah Buck CRPon 05-23-2022 CRP 1.0 mg/dL Normal <=1.0 [facility] Comment on above: Performed By: #### M G, CMP, BNP, TSH, CRP #### [facility] [address] [address] [address] Miah Buck ECHOCARDIO M/2D COMPLETEon 0 05-23-2022 ECHOCARDIO M/2D COMPLETE Patient: ANDRY PIERRE Exam Date: 05/23/2022 : 1960 Gender:M Ordering : SOFYA HIDALGO [facility] Admission #: [id number] Family : DR LUIS MCCORMICK . Order #: [id number] CLICK HERE TO VIEW EXAM ECHOCARDIOGRAM REPORT [...] Pearce M.D. on 05/23/2022 at 18:40 Normal [facility] MAGNESIUMon 05-23-2022 Magnesium [Mass/Vol] 2.3 mg/dL Normal 1.8-2.4 [facility] Comment on above: Performed By: #### M G, CMP, BNP, TSH, CRP #### [facility] [address] [place] [address] Dr. Miah Buck PROF 14(COMP METB)on 022 Albumin [Mass/Vol] 3.6 g/dL Normal 3.4-5.0 [facility] Comment on above: Performed By: #### M G, CMP, BNP, TSH, CRP #### [facility] [address] [address] [address] Miah Buck Albumin/Globulin [Mass ratio] 0.9 {ratio} Normal [facility] Comment on above: Performed By: #### M G, CMP, BNP, TSH, CRP #### [facility] [address] [address] [address] Miah Buck ALP [Catalytic activity/Vol] 113 U/L Normal 46-116 [facility] Comment on above: Performed By: #### M G, CMP, BNP, TSH, CRP #### [facility] [address] [address] [address] Miah Buck ALT [Catalytic activity/Vol] 34 U/L Normal 16-63 [facility] Comment on above: Performed By: #### M G, CMP, BNP, TSH, CRP #### [facility] [address] [address] [address] Miah Buck Anion gap [Moles/Vol] 10.7 mmol/L Normal [facility] Comment on above: Performed By: #### M G, CMP, BNP, TSH, CRP #### [facility] [address] [place] [address] Dr. Miah Buck AST [Catalytic activity/Vol] 23 U/L Normal 15-37 [facility] Comment on above: Performed By: #### M G, CMP, BNP, TSH, CRP #### [facility] [address] [place] [address] Dr. Miah Buck Bilirubin [Mass/Vol] 0.3 mg/dL Normal 0.2-1.0 [facility] Comment on above: Performed By: #### M G, CMP, BNP, TSH, CRP #### [facility] [address] [address] [address] Miah Buck Calcium [Mass/Vol] 8.9 mg/dL Normal 8.5-10.1 [facility] Comment on above: Performed By: #### M G, CMP, BNP, TSH, CRP #### [facility] [address] [place] [address] Dr. Miah Buck Chloride [Moles/Vol] 105 mmol/L Normal 98-107 [facility] Comment on above: Performed By: #### M G, CMP, BNP, TSH, CRP #### [facility] [address] [address] [address] Miah Buck CO2 [Moles/Vol] 26.5 mmol/L Normal 21.0-32.0 [facility] Comment on above: Performed By: #### M G, CMP, BNP, TSH, CRP #### [facility] [address] [place] [address] Dr. Miah Buck Creatinine [Mass/Vol] 1.73 mg/dL Critically high 0.70-1.30 [facility] Comment on above: Performed By: #### M G, CMP, BNP, TSH, CRP #### [facility] [address] [place] [address] Dr. Miah Buck EGFR-AF QATARI 49 mL/min/1.73m2 Critically low >=60 [facility] Comment on above: Performed By: #### M G, CMP, BNP, TSH, CRP #### [facility] [address] [place] [address] Dr. Miah Buck EGFR-NON AF QATARI 40 mL/min/1.73m2 Critically low >=60 [facility] Comment on above: Performed By: #### M G, CMP, BNP, TSH, CRP #### [facility] [address] [place] [address] Dr. Miah Buck Globulin (S) [Mass/Vol] 4.0 g/dL Normal [facility] Comment on above: Performed By: #### M G, CMP, BNP, TSH, CRP #### [facility] [address] [place] [address] Dr. Miah Buck Glucose [Mass/Vol] 285 mg/dL Critically high 74-106 [facility] Comment on above: Performed By: #### M G, CMP, BNP, TSH, CRP #### [facility] [address] [place] [address] Dr. Miah Buck Potassium [Moles/Vol] 4.2 mmol/L Normal 3.5-5.1 [facility] Comment on above: Performed By: #### M G, CMP, BNP, TSH, CRP #### [facility] [address] [place] [address] Dr. Miah Buck Protein [Mass/Vol] 7.6 g/dL Normal 6.4-8.2 [facility] Comment on above: Performed By: #### M G, CMP, BNP, TSH, CRP #### [facility] [address] [place] [address] Dr. Miah Buck Sodium [Moles/Vol] 138 mmol/L Normal 136-145 [facility] Comment on above: Performed By: #### M G, CMP, BNP, TSH, CRP #### [facility] [address] [place] [address] Dr. Miah Buck Urea nitrogen [Mass/Vol] 23.0 mg/dL Critically high 7.0-18.0 [facility] Comment on above: Performed By: #### M G, CMP, BNP, TSH, CRP #### [facility] [address] [place] [address] Dr. Miah Buck Urea nitrogen/Creatinin e [Mass ratio] 13.3 mg/mg Normal [facility] Comment on above: Performed By: #### M G, CMP, BNP, TSH, CRP #### [facility] [address] [place] [address] Dr. Miah Buck TSHon 05-23-2022 TSH 0.714 uIU/mL Normal 0.358-3.740 [facility] Comment on above: Performed By: #### M G, CMP, BNP, TSH, CRP #### [facility] [address] [place] [address] Dr. Miah Buck VITAMIN B12on 05-23-2022 Cobalamin (Vitamin B12) [Mass/Vol] 930.0 pg/mL Normal 193.0-986.0 [facility] Comment on above: Performed By: #### V ITB12 #### [facility] [address] [place] [address] Dr. Miah Buck BASIC METABOLIC PANELon -2 Calcium [Mass/Vol] 8.3 mg/dL Low 8.6-10.3 [facility] Comment on above: Order Comment: No: D o not add to previous draw Performed By: #### 1 0070, 23489, 24605, 28994 #### [facility] [address] [place] [address], [facility] Chloride [Moles/Vol] 105 mmol/L Normal 98-107 [facility] Comment on above: Order Comment: No: D o not add to previous draw Performed By: #### 1 0070, 85013, 09360, 49211 #### [facility] [address] [place] [address], [facility] CO2 [Moles/Vol] 22 mmol/L Normal 21-31 [facility] Comment on above: Order Comment: No: D o not add to previous draw Performed By: #### 1 0070, 34202, 03310, 14042 #### [facility] [address] [place] [address], [facility] Creatinine [Mass/Vol] 1.31 mg/dL High 0.70-1.30 [facility] Comment on above: Order Comment: No: D o not add to previous draw Performed By: #### 1 0070, 39268, 35050, 86709 #### [facility] [address] [place] [address], [facility] eGFR- non- 56 ml/min/1.73sq m Abnormal >60 [facility] Comment on above: Order Comment: No: D o not add to previous draw Performed By: #### 1 0070, 57247, 94204, 43179 #### [facility] [address] [place] [id number], [facility] GFR/1.73 sq M.predicted among blacks MDRD (S/P/Bld) [Vol rate/Area] mL/min/{1.73_m2} Normal >60 [facility] Comment on above: Order Comment: No: D o not add to previous draw Performed By: #### 1 0070, 51510, 46398, 67878 #### [facility] [address] [place] [address], [place] Glucose [Mass/Vol] 231 mg/dL High 70-100 [facility] Comment on above: Order Comment: No: D o not add to previous draw Performed By: #### 1 0070, 88453, 26225, 03178 #### [facility] [address] Potassium [Moles/Vol] 3.6 mmol/L Normal 3.5-5.1 [facility] Comment on above: Order Comment: No: D o not add to previous draw Performed By: #### 1 0070, 61792, 11327, 06699 #### [facility] [address] [facility] Sodium [Moles/Vol] 139 mmol/L Normal 136-145 [facility] Comment on above: Order Comment: No: D o not add to previous draw Performed By: #### 1 0070, 32648, 54626, 67906 #### [facility] [address] [facility] [facility] Urea nitrogen [Mass/Vol] 17 mg/dL Normal 7-25 [facility] Comment on above: Order Comment: No: D o not add to previous draw Performed By: #### 1 0070, 23630, 64073, 74694 #### [facility] [address] [facility]. [address] CBC W/DIFFon 07-27-2021 ABS IMM GRANS 0.1 10*3/uL Normal 0.0-0.2 [facility] Comment on above: Performed By: #### 1 0070, 43472, 33985, 94665 #### [facility] [address] [facility]. [address] ABS NEUTROPHILS 10.2 10*3/uL High 1.6-7.6 [facility] Comment on above: Performed By: #### 1 0070, 90510, 54202, 35893 #### [facility] [address] [facility] [place] [address], [facility] Basophils (Bld) [#/Vol] 0.0 10*3/uL Normal 0.0-0.2 [facility] Comment on above: Performed By: #### 1 0070, 55907, 53010, 40841 #### [facility] [address] [facility] [place] [address], [facility] Basophils/100 WBC (Bld) 0.3 % Normal 0.0-1.0 [facility] Comment on above: Performed By: #### 1 0070, 96715, 29257, 96740 #### [facility] [address] [place] [address], [facility] Eosinophils (Bld) [#/Vol] 0.0 10*3/uL Normal 0.0-0.5 [facility] Comment on above: Performed By: #### 1 0070, 61609, 59474, 80594 #### [facility] [address] [place] [address], [facility] Eosinophils/100 WBC (Bld) 0.0 % Normal 0.0-6.0 [facility] Comment on above: Performed By: #### 1 0070, 39339, 70075, 10985 #### [facility] [address] Erythrocyte distribution width (RBC) [Ratio] 13.2 % Normal 11.5-15.0 [facility] Comment on above: Performed By: #### 1 0070, 37188, 95957, 10113 #### [facility] [address] [facility]. [address] Hematocrit (Bld) [Volume fraction] 44.2 % Normal 39.0-50.0 [facility] Comment on above: Performed By: #### 1 0070, 26589, 22597, 99134 #### [facility] [address] [facility]. [address] Hemoglobin (Bld) [Mass/Vol] 14.9 g/dL Normal 13.0-17.0 [facility] Comment on above: Performed By: #### 1 0070, 07909, 14151, 67082 #### [facility] [address] [facility] [place] [address], [facility] IMMATURE GRANS 0.7 % Normal 0.0-1.0 [facility] Comment on above: Performed By: #### 1 0070, 28302, 42312, 38238 #### [facility] [address] [facility] [place] [address], [facility] Lymphocytes (Bld) [#/Vol] 1.0 10*3/uL Low 1.2-4.0 [facility] Comment on above: Performed By: #### 1 0070, 88568, 15623, 96449 #### [facility] [address] [place] [address], [facility] Lymphocytes/100 WBC (Bld) 8.2 % Low 20.0-45.0 [facility] Comment on above: Performed By: #### 1 0, 17145, 90862, 10135 #### [facility] [address] [place] [address], [facility] MCH (RBC) [Entitic mass] 31.2 pg Normal 27.0-33.0 [facility] Comment on above: Performed By: #### 1 0070, 05772, 81880, 80214 #### [facility] [address] [place] [address], [facility] MCHC (RBC) [Mass/Vol] 33.7 g/dL Normal 32.0-35.0 [facility] Comment on above: Performed By: #### 1 0070, 15920, 03097, 64876 #### [facility] [address] [place] [address], [facility] MCV (RBC) [Entitic vol] 92.7 fL Normal 82.0-98.0 [facility] Comment on above: Performed By: #### 1 0070, 99231, 47429, 29486 #### [facility] [address] [place] [address], [facility] Monocytes (Bld) [#/Vol] 0.9 10*3/uL Normal 0.1-1.0 [facility] Comment on above: Performed By: #### 1 0070, 67959, 54651, 83402 #### [facility] [address] [place] [address], [place] MONOS 7.0 % Normal 5.0-12.0 [facility] Comment on above: Performed By: #### 1 0070, 64828, 70603, 16199 #### [facility] [address] [facility] [place] [address], [facility] Neutrophils/100 WBC (Bld) 83.8 % High 40.0-72.0 [facility] Comment on above: Performed By: #### 1 0070, 68475, 27038, 52674 #### [facility] [address] [facility] [place] [address], [facility] Nucleated RBC/100 WBC (Bld) [Ratio] 0 % Normal 0-0 [facility] Comment on above: Performed By: #### 1 0070, 07615, 18921, 63753 #### [facility] [address] [facility] [place] [address], [facility] PLAT CNT 198 10*3/uL Normal 150-400 [facility] Comment on above: Performed By: #### 1 0070, 27957, 05797, 00478 #### [facility] [address] [facility] [place] [address], [facility] RBC (Bld) [#/Vol] 4.77 10*6/uL Normal 4.20-5.70 [facility] Comment on above: Performed By: #### 1 0070, 34131, 16215, 16951 #### [facility] [address] [place] [id number], [place] WBC (Bld) [#/Vol] 12.15 10*3/uL High 4.00-10.60 [facility] Comment on above: Performed By: #### 1 0070, 49824, 80619, 62466 #### [facility] [address] [place] [address], [place] LIVER BATTERYon 07-27-2021 Albumin [Mass/Vol] 3.3 g/dL Low 3.5-5.7 [facility] Comment on above: Order Comment: No: D o not add to previous draw Performed By: #### 1 0070, 97202, 43344, 13625 #### [facility] [address] [place] [address], [place] ALKALINE PHOSPH 124 IU/L High 34-104 [facility] Comment on above: Order Comment: No: D o not add to previous draw Performed By: #### 1 0070, 58062, 47784, 40737 #### [facility] [address] [place] [address], [place] ALT [Catalytic activity/Vol] 58 U/L High 7-52 [facility] Comment on above: Order Comment: No: D o not add to previous draw Performed By: #### 1 0070, 17758, 23996, 26041 #### [facility] [address] [place] [address], [place] AST [Catalytic activity/Vol] 48 U/L High 13-39 [facility] Comment on above: Order Comment: No: D o not add to previous draw Performed By: #### 1 0070, 57558, 80138, 33100 #### [facility] [address] [place] [address], [place] Bilirubin [Mass/Vol] 0.8 mg/dL Normal 0.3-1.0 [facility] Comment on above: Order Comment: No: D o not add to previous draw Performed By: #### 1 0070, 57074, 86578, 16294 #### [facility] [address] [place] [address], [place] Bilirubin.direct [Mass/Vol] 0.3 mg/dL High 0.0-0.2 [facility] Comment on above: Order Comment: No: D o not add to previous draw Performed By: #### 1 0070, 64051, 51550, 43874 #### [facility] [address] [place] [address], [facility] Protein [Mass/Vol] 6.2 g/dL Normal 6.0-8.3 [facility] Comment on above: Order Comment: No: D o not add to previous draw Performed By: #### 1 0070, 45930, 80578, 34901 #### [facility] [address] [place] [address], [facility] MAGNESIUM BLOODon 07-27-2021 Magnesium [Mass/Vol] 1.8 mg/dL Low 1.9-2.7 [facility] Comment on above: Order Comment: No: D o not add to previous draw Performed By: #### 1 0070, 29372, 61958, 24915 #### [facility] [address] [place] [address], [facility] PHOSPHORUS BLOODon Phosphate [Mass/Vol] 2.9 mg/dL Normal 2.5-5.0 [facility] Comment on above: Order Comment: No: D o not add to previous draw Performed By: #### 1 0070, 38346, 83750, 79561 #### [facility] [address] [place] [address], [facility] POC GLUCOSE LABon 07-27-2021 Glucose [Mass/Vol] 260 mg/dL High 70-100 [facility] Comment on above: Performed By: #### 8 5499 #### [facility] [address] [place] [address], [facility] Glucose [Mass/Vol] 225 mg/dL High 70-100 [facility] Comment on above: Performed By: #### 1 0070, 20968, 83753, 98413 #### [facility] [address] PROTHROMBIN TIMEon INR Coag (PPP) [Relative time] 1.22 {INR} High 0.91-1.16 [facility] Comment on above: Order Comment: No: [...] CHEST 1995;108:[id number]. Performed By: #### 1 0070, 68644, 69612, 10012 #### [facility] [address] PT Coag (PPP) [Time] 15.4 s High 12.3-14.8 [facility] Comment on above: Order Comment: No: D o not add to previous draw Result Comment: ALL RESULTS MUST BE INTERPRETED WITH RESPECT TO BLOOD DRAWING ARTIFACT OR DILUTION ERROR OF ANTICOAGULANT AT THE TIME OF SAMPLING. Performed By: #### 1 0070, 32874, 31480, 94253 #### [facility] [address] BASIC METABOLIC PANELon 10-2 Calcium [Mass/Vol] 8.5 mg/dL Low 8.6-10.3 [facility] Comment on above: Order Comment: No: D o not add to previous draw Performed By: #### 8 5499 #### [facility] [address] [place] [address], [place] Chloride [Moles/Vol] 108 mmol/L High 98-107 [facility] Comment on above: Order Comment: No: D o not add to previous draw Performed By: #### 8 5499 #### [facility] [address] [place] [address], [place] CO2 [Moles/Vol] 24 mmol/L Normal 21-31 [facility] Comment on above: Order Comment: No: D o not add to previous draw Performed By: #### 8 5499 #### [facility] [address] [place] [address], [place] Creatinine [Mass/Vol] 1.23 mg/dL Normal 0.70-1.30 [facility] Comment on above: Order Comment: No: D o not add to previous draw Performed By: #### 8 5499 #### [facility] [address] [place] [address], [facility] eGFR- non- 60 ml/min/1.73sq m Abnormal >60 [facility] Comment on above: Order Comment: No: D o not add to previous draw Performed By: #### 8 5499 #### [facility] [address] [place] [address], [facility] GFR/1.73 sq M.predicted among blacks MDRD (S/P/Bld) [Vol rate/Area] mL/min/{1.73_m2} Normal >60 [facility] Comment on above: Order Comment: No: D o not add to previous draw Performed By: #### 8 5499 #### [facility] [address] [place] [address], [place] Glucose [Mass/Vol] 141 mg/dL High 70-100 [facility] Comment on above: Order Comment: No: D o not add to previous draw Performed By: #### 8 5499 #### [facility] [address] [place] [address], [place] Potassium [Moles/Vol] 3.5 mmol/L Normal 3.5-5.1 [facility] Comment on above: Order Comment: No: D o not add to previous draw Performed By: #### 8 5499 #### [facility] [address] [place] [address], [place] Sodium [Moles/Vol] 139 mmol/L Normal 136-145 [facility] Comment on above: Order Comment: No: D o not add to previous draw Performed By: #### 8 5499 #### [facility] [address] [place] [address], [place] Urea nitrogen [Mass/Vol] 18 mg/dL Normal 7-25 [facility] Comment on above: Order Comment: No: D o not add to previous draw Performed By: #### 8 5499 #### [facility] [address] [place] [address], [facility] CBC COMPLETE BLOOD COUNTon Erythrocyte distribution width (RBC) [Ratio] 13.2 % Normal 11.5-15.0 [facility] Comment on above: Order Comment: No: D o not add to previous draw Performed By: #### 1 0070, 83781, 67956, 68812 #### [facility] [address] [place] [address], [place] Hematocrit (Bld) [Volume fraction] 42.7 % Normal 39.0-50.0 [facility] Comment on above: Order Comment: No: D o not add to previous draw Performed By: #### 1 0070, 38055, 35129, 19289 #### [facility] [address] [place] [address], [place] Hemoglobin (Bld) [Mass/Vol] 14.5 g/dL Normal 13.0-17.0 [facility] Comment on above: Order Comment: No: D o not add to previous draw Performed By: #### 1 0070, 94357, 88580, 81152 #### [facility] [address] [facility] [place] [address], [facility] MCH (RBC) [Entitic mass] 32.0 pg Normal 27.0-33.0 [facility] Comment on above: Order Comment: No: D o not add to previous draw Performed By: #### 1 0070, 17395, 98534, 86001 #### [facility] [address] [facility] [place] [address], [facility] MCHC (RBC) [Mass/Vol] 34.0 g/dL Normal 32.0-35.0 [facility] Comment on above: Order Comment: No: D o not add to previous draw Performed By: #### 1 0070, 76618, 46919, 83981 #### [facility] [address] [facility] [place] [address], [facility] MCV (RBC) [Entitic vol] 94.3 fL Normal 82.0-98.0 [facility] Comment on above: Order Comment: No: D o not add to previous draw Performed By: #### 1 0070, 81117, 62599, 28775 #### [facility] [address] [facility] [place] [address], [facility] Nucleated RBC/100 WBC (Bld) [Ratio] 0 % Normal 0-0 [facility] Comment on above: Order Comment: No: D o not add to previous draw Performed By: #### 1 0070, 15321, 74000, 12946 #### [facility] [address] [facility] [place] [address], [facility] PLAT CNT 179 10*3/uL Normal 150-400 [facility] Comment on above: Order Comment: No: D o not add to previous draw Performed By: #### 1 0070, 71962, 54060, 36294 #### [facility] [address] [place] [address], [facility] RBC (Bld) [#/Vol] 4.53 10*6/uL Normal 4.20-5.70 [facility] Comment on above: Order Comment: No: D o not add to previous draw Performed By: #### 1 0070, 87055, 74128, 10591 #### [facility] [address] [place] [address], [place] WBC (Bld) [#/Vol] 7.86 10*3/uL Normal 4.00-10.60 [facility] Comment on above: Order Comment: No: D o not add to previous draw Performed By: #### 1 0070, 78279, 12010, 70282 #### [facility] [address] [place] [address], [facility] LIVER BATTERYon 07-26-2021 Albumin [Mass/Vol] 3.2 g/dL Low 3.5-5.7 [facility] Comment on above: Order Comment: No: D o not add to previous draw Performed By: #### 0 0071, 70216 #### [facility] [address] [place] [address], [facility] ALKALINE PHOSPH 114 IU/L High 34-104 [facility] Comment on above: Order Comment: No: D o not add to previous draw Performed By: #### 0 0071, 81094 #### [facility] [address] [place] [id number], [facility] ALT [Catalytic activity/Vol] 37 U/L Normal 7-52 [facility] Comment on above: Order Comment: No: D o not add to previous draw Performed By: #### 0 0071, 51849 #### [facility] [address] [place] [address], [place] AST [Catalytic activity/Vol] 28 U/L Normal 13-39 [facility] Comment on above: Order Comment: No: D o not add to previous draw Performed By: #### 0 0071, 13237 #### [facility] [address] [place] [address], [place] Bilirubin [Mass/Vol] 0.6 mg/dL Normal 0.3-1.0 [facility] Comment on above: Order Comment: No: D o not add to previous draw Performed By: #### 0 0071, 94450 #### [facility] [address] [place] [address], [place] Bilirubin.direct [Mass/Vol] 0.1 mg/dL Normal 0.0-0.2 [facility] Comment on above: Order Comment: No: D o not add to previous draw Performed By: #### 0 0071, 53145 #### [facility] [address] [place] [address], [place] Protein [Mass/Vol] 6.3 g/dL Normal 6.0-8.3 [facility] Comment on above: Order Comment: No: D o not add to previous draw Performed By: #### 0 0071, 55301 #### [facility] [address] [place] [address], [facility] Operative Reporton Operative Report MR#: [id number] I [facility] Pt. 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 Date Trans: 07/26/2021 04:31 P/ VALENTINE_JN:[id number] cc: Luis Mccormick M.D. [address] [id number] Normal [facility] POC GLUCOSE LABon 07-26-2021 Glucose [Mass/Vol] 155 mg/dL High 70-100 [facility] Comment on above: Performed By: #### 1 0070, 50878, 59664, 63599 #### [facility] [address] [place] [address], [facility] Glucose [Mass/Vol] 149 mg/dL High 70-100 [facility] Comment on above: Performed By: #### 8 5499 #### [facility] [address] [place] [address], [facility] Glucose [Mass/Vol] 123 mg/dL High 70-100 [facility] Comment on above: Performed By: #### 1 0070, 20064, 80332, 55411 #### [facility] [address] [place] [address], [facility] Glucose [Mass/Vol] 126 mg/dL High 70-100 [facility] Comment on above: Performed By: #### 8 5499 #### [facility] [address] [place] [address], [facility] PROTHROMBIN TIMEon 1 INR Coag (PPP) [Relative time] 1.20 {INR} High 0.91-1.16 [facility] Comment on above: Order Comment: No: [...] CHEST 1995;108:231S-246S. Performed By: #### 1 0070, 05821, 75764, 05757 #### [facility] [address] [place] [address], [facility] PT Coag (PPP) [Time] 15.2 s High 12.3-14.8 [facility] Comment on above: Order Comment: No: D o not add to previous draw Result Comment: ALL RESULTS MUST BE INTERPRETED WITH RESPECT TO BLOOD DRAWING ARTIFACT OR DILUTION ERROR OF ANTICOAGULANT AT THE TIME OF SAMPLING. Performed By: #### 1 0070, 00447, 14685, 94198 #### [facility] [address] [facility] [place] [address], [facility] APTTon 07-25-2021 aPTT Coag (Bld) [Time] 29.3 s Normal 25.0-35.0 [facility] Comment on above: Order Comment: No: [...] THIS PURPOSE. Performed By: #### 1 0070, 14617, 04308, 55125 #### [facility] [address] [place] [id number], [facility] aPTT Coag (Bld) [Time] 28.7 s Normal 25.0-35.0 [facility] Comment on above: Order Comment: No: [...] THIS PURPOSE. Performed By: #### 1 0070, 64144, 67748, 97012 #### [facility] [address] BASIC METABOLIC PANELon 10-2 0-2020 Calcium [Mass/Vol] 8.3 mg/dL Low 8.6-10.3 [facility] Comment on above: Order Comment: No: D o not add to previous draw Performed By: #### 1 0070, 32329, 69012, 04840 #### [facility] [address] [place] [address], [facility] Chloride [Moles/Vol] 111 mmol/L High 98-107 [facility] Comment on above: Order Comment: No: D o not add to previous draw Performed By: #### 1 0070, 28239, 42863, 27763 #### [facility] [address] [place] [address], [facility] CO2 [Moles/Vol] 26 mmol/L Normal 21-31 [facility] Comment on above: Order Comment: No: D o not add to previous draw Performed By: #### 1 0070, 24480, 51225, 14486 #### [facility] [address] [place] [address], [facility] Creatinine [Mass/Vol] 1.25 mg/dL Normal 0.70-1.30 [facility] Comment on above: Order Comment: No: D o not add to previous draw Performed By: #### 1 0070, 53768, 73440, 28601 #### [facility] [address] [place] [address], [facility] eGFR- non- 59 ml/min/1.73sq m Abnormal >60 [facility] Comment on above: Order Comment: No: D o not add to previous draw Performed By: #### 1 0070, 90152, 47524, 07526 #### [facility] [address] [place] [address], [place] GFR/1.73 sq M.predicted among blacks MDRD (S/P/Bld) [Vol rate/Area] mL/min/{1.73_m2} Normal >60 [facility] Comment on above: Order Comment: No: D o not add to previous draw Performed By: #### 1 0070, 98520, 47145, 70017 #### [facility] [address] [place] [address], [place] Glucose [Mass/Vol] 107 mg/dL High 70-100 [facility] Comment on above: Order Comment: No: D o not add to previous draw Performed By: #### 1 0070, 29511, 39537, 51675 #### [facility] [address] [place] [address], [place] Potassium [Moles/Vol] 3.6 mmol/L Normal 3.5-5.1 [facility] Comment on above: Order Comment: No: D o not add to previous draw Performed By: #### 1 0070, 17164, 10441, 98826 #### [facility] [address] [place] [address], [place] Sodium [Moles/Vol] 143 mmol/L Normal 136-145 [facility] Comment on above: Order Comment: No: D o not add to previous draw Performed By: #### 1 0070, 75811, 12910, 83042 #### [facility] [address] [place] [address], [place] Urea nitrogen [Mass/Vol] 22 mg/dL Normal 7-25 [facility] Comment on above: Order Comment: No: D o not add to previous draw Performed By: #### 1 0070, 07512, 38062, 52409 #### [facility] [address] [place] [address], [place] CBC COMPLETE BLOOD COUNTon 1 0-20-2021 Erythrocyte distribution width (RBC) [Ratio] 13.3 % Normal 11.5-15.0 [facility] Comment on above: Order Comment: No: D o not add to previous draw Performed By: #### 1 0070, 08207, 04888, 72188 #### [facility] [address] [place] [address], [facility] Hematocrit (Bld) [Volume fraction] 46.9 % Normal 39.0-50.0 [facility] Comment on above: Order Comment: No: D o not add to previous draw Performed By: #### 1 0070, 59901, 54361, 37947 #### [facility] [address] [place] [address], [facility] Hemoglobin (Bld) [Mass/Vol] 15.4 g/dL Normal 13.0-17.0 [facility] Comment on above: Order Comment: No: D o not add to previous draw Performed By: #### 1 0070, 52759, 55181, 28532 #### [facility] [address] [place] [address], [facility] MCH (RBC) [Entitic mass] 31.3 pg Normal 27.0-33.0 [facility] Comment on above: Order Comment: No: D o not add to previous draw Performed By: #### 1 0070, 26168, 17816, 64208 #### [facility] [address] [place] [address], [facility] MCHC (RBC) [Mass/Vol] 32.8 g/dL Normal 32.0-35.0 [facility] Comment on above: Order Comment: No: D o not add to previous draw Performed By: #### 1 0070, 07720, 63653, 31226 #### [facility] [address] [place] [address], [place] MCV (RBC) [Entitic vol] 95.3 fL Normal 82.0-98.0 [facility] Comment on above: Order Comment: No: D o not add to previous draw Performed By: #### 1 0070, 38103, 92657, 58006 #### [facility] [address] [place] [address], [facility] Nucleated RBC/100 WBC (Bld) [Ratio] 0 % Normal 0-0 [facility] Comment on above: Order Comment: No: D o not add to previous draw Performed By: #### 1 0070, 65527, 66918, 51788 #### [facility] [address] [place] [id number], [facility] PLAT CNT 183 10*3/uL Normal 150-400 [facility] Comment on above: Order Comment: No: D o not add to previous draw Performed By: #### 1 0070, 87528, 53639, 48599 #### [facility] [address] [place] [address], [facility] RBC (Bld) [#/Vol] 4.92 10*6/uL Normal 4.20-5.70 [facility] Comment on above: Order Comment: No: D o not add to previous draw Performed By: #### 1 0070, 30843, 27904, 44584 #### [facility] [address] [place] [address], [facility] WBC (Bld) [#/Vol] 9.70 10*3/uL Normal 4.00-10.60 [facility] Comment on above: Order Comment: No: D o not add to previous draw Performed By: #### 1 0070, 12974, 84853, 58284 #### [facility] [address] [place] [id number], [facility] LIPASE BLOODon 07-25-2021 LIPASE 34 Units/L Normal 11-82 [facility] Comment on above: Order Comment: No: D o not add to previous draw Performed By: #### 1 0070, 62444, 79148, 73747 #### [facility] [address] [place] [address], [facility] LIVER BATTERYon 07-25-2021 Albumin [Mass/Vol] 3.0 g/dL Low 3.5-5.7 [facility] Comment on above: Order Comment: No: D o not add to previous draw Performed By: #### 1 0070, 92069, 97711, 71121 #### [facility] [address] [place] [address], [facility] ALKALINE PHOSPH 113 IU/L High 34-104 [facility] Comment on above: Order Comment: No: D o not add to previous draw Performed By: #### 1 0070, 15740, 13503, 45810 #### [facility] [address] [place] [address], [facility] ALT [Catalytic activity/Vol] 37 U/L Normal 7-52 [facility] Comment on above: Order Comment: No: D o not add to previous draw Performed By: #### 1 0070, 00167, 91246, 09252 #### [facility] [address] [place] [address], [place] AST [Catalytic activity/Vol] 36 U/L Normal 13-39 [facility] Comment on above: Order Comment: No: D o not add to previous draw Performed By: #### 1 0070, 44398, 93227, 87471 #### [facility] [address] [place] [address], [place] Bilirubin [Mass/Vol] 0.6 mg/dL Normal 0.3-1.0 [facility] Comment on above: Order Comment: No: D o not add to previous draw Performed By: #### 1 0070, 85519, 97770, 62180 #### [facility] [address] [place] [address], [place] Bilirubin.direct [Mass/Vol] 0.1 mg/dL Normal 0.0-0.2 [facility] Comment on above: Order Comment: No: D o not add to previous draw Performed By: #### 1 0070, 03023, 55290, 86007 #### [facility] [address] [place] [address], [place] Protein [Mass/Vol] 5.3 g/dL Low 6.0-8.3 [facility] Comment on above: Order Comment: No: D o not add to previous draw Performed By: #### 1 0070, 30411, 65771, 88743 #### [facility] [address] [place] [address], [place] POC GLUCOSE LABon 07-25-2021 Glucose [Mass/Vol] 388 mg/dL High 70-100 [facility] Comment on above: Performed By: #### 1 0070, 00430, 88921, 65583 #### [facility] [address] [place] [address], [place] Glucose [Mass/Vol] 173 mg/dL High 70-100 [facility] Comment on above: Performed By: #### 8 5499 #### [facility] [address] [place] [address], [place] Glucose [Mass/Vol] 178 mg/dL High 70-100 [facility] Comment on above: Performed By: #### 8 5499 #### [facility] [address] [place] [address], [place] Glucose [Mass/Vol] 106 mg/dL High 70-100 [facility] Comment on above: Performed By: #### 1 0070, 41502, 36174, 02355 #### [facility] [address] [place] [address], [place] PROTHROMBIN TIMEon INR Coag (PPP) [Relative time] 1.30 {INR} High 0.91-1.16 [facility] Comment on above: Order Comment: No: [...] CHEST 1995;108:231S-246S. Performed By: #### 1 0070, 85780, 31264, 93560 #### [facility] [address] PT Coag (PPP) [Time] 16.2 s High 12.3-14.8 [facility] Comment on above: Order Comment: No: D o not add to previous draw Result Comment: ALL RESULTS MUST BE INTERPRETED WITH RESPECT TO BLOOD DRAWING ARTIFACT OR DILUTION ERROR OF ANTICOAGULANT AT THE TIME OF SAMPLING. Performed By: #### 1 0070, 14384, 67664, 69093 #### [facility] [address] UFH HEPARIN ASSAYon 20 21 UNFRACTIONATED HEPARIN <0.10 Critically low 0.30-0.70 [facility] Comment on above: Result Comment: Resu lts called. Accur[place] 4[place] [id number], 25-Jul-2021. Patient is not on anything that would raise the uFH value per nurse Caitlin. Rivaroxaban and Apixaban will interfere with the anti Xa assay used to monitor UFH and LMWH. Performed By: #### 1 0070, 31799, 26903, 95911 #### [facility] [address] [place] [address], [facility] UNFRACTIONATED HEPARIN <0.10 Critically low 0.30-0.70 [facility] Comment on above: Result Comment: Resu lt checked and called. Accurately read back by Caitlin Koch RN at 1024 Rivaroxaban and Apixaban will interfere with the anti Xa assay used to monitor UFH and LMWH. Performed By: #### 1 0070, 02464, 24841, 00635 #### [facility] [address] [place] [address], [facility] BASIC METABOLIC PANELon 10-1 Calcium [Mass/Vol] 8.7 mg/dL Normal 8.6-10.3 [facility] Comment on above: Order Comment: No: D o not add to previous draw Performed By: #### 0 0071, 13487 #### [facility] [address] [place] [address], [facility] Chloride [Moles/Vol] 105 mmol/L Normal 98-107 [facility] Comment on above: Order Comment: No: D o not add to previous draw Performed By: #### 0 0071, 52886 #### [facility] [address] [facility] [place] [address], [facility] CO2 [Moles/Vol] 30 mmol/L Normal 21-31 [facility] Comment on above: Order Comment: No: D o not add to previous draw Performed By: #### 0 0071, 50174 #### [facility] [address] [place] [address], [facility] Creatinine [Mass/Vol] 1.52 mg/dL High 0.70-1.30 [facility] Comment on above: Order Comment: No: D o not add to previous draw Performed By: #### 0 0071, 89758 #### [facility] [address] [place] [address], [facility] eGFR- 57 ml/min/1.73sq m Abnormal >60 [facility] Comment on above: Order Comment: No: D o not add to previous draw Performed By: #### 0 0071, 95478 #### [facility] [address] [place] [address], [facility] eGFR- non- 47 ml/min/1.73sq m Abnormal >60 [facility] Comment on above: Order Comment: No: D o not add to previous draw Performed By: #### 0 0071, 14145 #### [facility] [address] [place] [address], [place] Glucose [Mass/Vol] 331 mg/dL High 70-100 [facility] Comment on above: Order Comment: No: D o not add to previous draw Performed By: #### 0 0071, 95700 #### [facility] [address] [place] [address], [place] Potassium [Moles/Vol] 4.3 mmol/L Normal 3.5-5.1 [facility] Comment on above: Order Comment: No: D o not add to previous draw Performed By: #### 0 0071, 45099 #### [facility] [address] [place] [address], [facility] Sodium [Moles/Vol] 139 mmol/L Normal 136-145 [facility] Comment on above: Order Comment: No: D o not add to previous draw Performed By: #### 0 0071, 97457 #### [facility] [address] [place] [address], [place] Urea nitrogen [Mass/Vol] 26 mg/dL High 7-25 [facility] Comment on above: Order Comment: No: D o not add to previous draw Performed By: #### 0 0071, 96449 #### [facility] [address] [place] [address], [place] CBC COMPLETE BLOOD COUNTon Erythrocyte distribution width (RBC) [Ratio] 13.2 % Normal 11.5-15.0 [facility] Comment on above: Order Comment: No: D o not add to previous draw Performed By: #### 1 0070, 88765, 93200, 30265 #### [facility] [address] [place] [address], [facility] Hematocrit (Bld) [Volume fraction] 42.9 % Normal 39.0-50.0 [facility] Comment on above: Order Comment: No: D o not add to previous draw Performed By: #### 1 0070, 18902, 20997, 40107 #### [facility] [address] [place] [address], [facility] Hemoglobin (Bld) [Mass/Vol] 13.7 g/dL Normal 13.0-17.0 [facility] Comment on above: Order Comment: No: D o not add to previous draw Performed By: #### 1 0070, 47754, 49397, 60437 #### [facility] [address] [place] [address], [facility] MCH (RBC) [Entitic mass] 30.9 pg Normal 27.0-33.0 [facility] Comment on above: Order Comment: No: D o not add to previous draw Performed By: #### 1 0070, 97452, 05826, 82669 #### [facility] [address] [place] [address], [facility] MCHC (RBC) [Mass/Vol] 31.9 g/dL Low 32.0-35.0 [facility] Comment on above: Order Comment: No: D o not add to previous draw Performed By: #### 1 0070, 03691, 73770, 08776 #### [facility] [address] [place] [id number], [facility] MCV (RBC) [Entitic vol] 96.6 fL Normal 82.0-98.0 [facility] Comment on above: Order Comment: No: D o not add to previous draw Performed By: #### 1 0070, 40897, 31447, 60602 #### [facility] [address] [place] [address], [facility] Nucleated RBC/100 WBC (Bld) [Ratio] 0 % Normal 0-0 [facility] Comment on above: Order Comment: No: D o not add to previous draw Performed By: #### 1 0070, 67217, 01723, 64809 #### [facility] [address] [place] [address], [facility] PLAT CNT 184 10*3/uL Normal 150-400 [facility] Comment on above: Order Comment: No: D o not add to previous draw Performed By: #### 1 0070, 40937, 24607, 47371 #### [place] [address], [facility] RBC (Bld) [#/Vol] 4.44 10*6/uL Normal 4.20-5.70 [facility] Comment on above: Order Comment: No: D o not add to previous draw Performed By: #### 1 0070, 09185, 13102, 46629 #### [place] [address], [facility] WBC (Bld) [#/Vol] 8.42 10*3/uL Normal 4.00-10.60 [facility] Comment on above: Order Comment: No: D o not add to previous draw Performed By: #### 1 0070, 06678, 36054, 44946 #### [address] ERCPon 07-24-2021 [facility] Department of Radiology [address] [place] [address] [id number] Patient Name: ANDRY PIERRE : 1960 Sex: M Age: Race: White Pt. Location: [id number] Patient Status: I Ordered Date: 07/24/2021 7:00:00 [...] details. Electronically signed: Khoa Chahal. Transcribed by: [email or web address], User Resident: Electronically Signed by: KHOA CHAHAL @ 07/25/2021 08:48 AM Normal [facility] Comment on above: Order Comment: ERCP Endoscopy Reporton Endoscopy Report MR#: [id number] [facility] Pt. Name: Andry Pierre Surgery Date: 07/24/2021 Room #: 4CD [id number] Date of : 1960 PROCEDURE NOTE ATTENDING: Amy Remy M.D. SKID WORKER: Cyrus Decker MD PROCEDURE: ERCP with biliary [...] Decker MD Date Trans: 07/24/2021 09:24 P/mmo [id number] cc: Luis Mccormick M.D. [address] Yaya Sona [facility] [id number] Normal [facility] LIVER BATTERYon 07-24-2021 Albumin [Mass/Vol] 3.3 g/dL Low 3.5-5.7 [facility] Comment on above: Order Comment: No: D o not add to previous draw Performed By: #### 0 0071, 95154 #### [facility] [address] [place] [address], [facility] ALKALINE PHOSPH 106 IU/L High 34-104 [facility] Comment on above: Order Comment: No: D o not add to previous draw Performed By: #### 0 0071, 17682 #### [facility] [address] [place] [address], [facility] ALT [Catalytic activity/Vol] 26 U/L Normal 7-52 [facility] Comment on above: Order Comment: No: D o not add to previous draw Performed By: #### 0 0071, 43330 #### [facility] [address] [facility] [place] [address], [facility] AST [Catalytic activity/Vol] 17 U/L Normal 13-39 [facility] Comment on above: Order Comment: No: D o not add to previous draw Performed By: #### 0 0071, 63437 #### [facility] [address] [place] [address], [place] Bilirubin [Mass/Vol] 0.3 mg/dL Normal 0.3-1.0 [facility] Comment on above: Order Comment: No: D o not add to previous draw Performed By: #### 0 0071, 05713 #### [facility] [address] [place] [address], [place] Bilirubin.direct [Mass/Vol] 0.0 mg/dL Normal 0.0-0.2 [facility] Comment on above: Order Comment: No: D o not add to previous draw Performed By: #### 0 0071, 10792 #### [facility] [address] [place] [address], [place] Protein [Mass/Vol] 6.1 g/dL Normal 6.0-8.3 [facility] Comment on above: Order Comment: No: D o not add to previous draw Performed By: #### 0 0071, 17116 #### [facility] [address] [place] [address], [place] POC GLUCOSE LABon 07-24-2021 Glucose [Mass/Vol] 89 mg/dL Normal 70-100 [facility] Comment on above: Performed By: #### 8 5499 #### [facility] [address] [place] [address], [place] Glucose [Mass/Vol] 89 mg/dL Normal 70-100 [facility] Comment on above: Performed By: #### 1 0070, 68352, 24671, 52752 #### [facility] [address] [place] [address], [place] Glucose [Mass/Vol] 166 mg/dL High 70-100 [facility] Comment on above: Performed By: #### 8 5499 #### [facility] [address] [place] [address], [place] Glucose [Mass/Vol] 391 mg/dL High 70-100 [facility] Comment on above: Performed By: #### 8 5499 #### [facility] 3000 [facility]. [address] POC SARS COV2 ANTIGEN NEGATI VEon 07-24-2021 POC SARS COV2 ANTIGEN NEG Negative Normal NEGATIVE [facility] Comment on above: Result Comment: Nega [...] signs and symptoms consistent with COVID-19. The [employer] COVID-19 Ag Card is a lateral flow [...] Accreditation. Performed By: #### 8 5499 #### [facility] [address] [facility]. [address] PROTHROMBIN TIMEon INR Coag (PPP) [Relative time] 1.53 {INR} High 0.91-1.16 [facility] Comment on above: Order Comment: No: [...] CHEST 1995;108:231S-246S. Performed By: #### 1 0070, 64422, 56364, 65626 #### [facility] [address] PT Coag (PPP) [Time] 18.3 s High 12.3-14.8 [facility] Comment on above: Order Comment: No: D o not add to previous draw Result Comment: ALL RESULTS MUST BE INTERPRETED WITH RESPECT TO BLOOD DRAWING ARTIFACT OR DILUTION ERROR OF ANTICOAGULANT AT THE TIME OF SAMPLING. Performed By: #### 1 0070, 13973, 11242, 19530 #### [facility] [address] COMP METABOLIC PANELon 07-23 Albumin [Mass/Vol] 3.5 g/dL Normal 3.5-5.7 [facility] Comment on above: Order Comment: No: D o not add to previous draw Performed By: #### 8 5499 #### [facility] [address] ALKALINE PHOSPH 122 IU/L High 34-104 [facility] Comment on above: Order Comment: No: D o not add to previous draw Performed By: #### 8 5499 #### [facility] [address] [facility] ALT [Catalytic activity/Vol] 32 U/L Normal 7-52 [facility] Comment on above: Order Comment: No: D o not add to previous draw Performed By: #### 8 5499 #### [facility] [address] [place] [address], [place] AST [Catalytic activity/Vol] 22 U/L Normal 13-39 [facility] Comment on above: Order Comment: No: D o not add to previous draw Performed By: #### 8 5499 #### [facility] [address] [place] [address], [place] Bilirubin [Mass/Vol] 0.4 mg/dL Normal 0.3-1.0 [facility] Comment on above: Order Comment: No: D o not add to previous draw Performed By: #### 8 5499 #### [facility] [address] [place] [address], [place] Calcium [Mass/Vol] 8.5 mg/dL Low 8.6-10.3 [facility] Comment on above: Order Comment: No: D o not add to previous draw Performed By: #### 8 5499 #### [facility] [address] [place] [address], [place] Chloride [Moles/Vol] 110 mmol/L High 98-107 [facility] Comment on above: Order Comment: No: D o not add to previous draw Performed By: #### 8 5499 #### [facility] [address] [place] [address], [place] CO2 [Moles/Vol] 23 mmol/L Normal 21-31 [facility] Comment on above: Order Comment: No: D o not add to previous draw Performed By: #### 8 5499 #### [facility] [address] [place] [address], [place] Creatinine [Mass/Vol] 1.33 mg/dL High 0.70-1.30 [facility] Comment on above: Order Comment: No: D o not add to previous draw Performed By: #### 8 5499 #### [facility] [address] [place] [address], [facility] eGFR- non- 55 ml/min/1.73sq m Abnormal >60 [facility] Comment on above: Order Comment: No: D o not add to previous draw Performed By: #### 8 5499 #### [facility] [address] [place] [address], [place] GFR/1.73 sq M.predicted among blacks MDRD (S/P/Bld) [Vol rate/Area] mL/min/{1.73_m2} Normal >60 [facility] Comment on above: Order Comment: No: D o not add to previous draw Performed By: #### 8 5499 #### [facility] [address] [place] [address], [place] Glucose [Mass/Vol] 198 mg/dL High 70-100 [facility] Comment on above: Order Comment: No: D o not add to previous draw Performed By: #### 8 5499 #### [facility] [address] [place] [address], [place] Potassium [Moles/Vol] 3.5 mmol/L Normal 3.5-5.1 [facility] Comment on above: Order Comment: No: D o not add to previous draw Performed By: #### 8 5499 #### [facility] [address] [place] [address], [place] Protein [Mass/Vol] 6.3 g/dL Normal 6.0-8.3 [facility] Comment on above: Order Comment: No: D o not add to previous draw Performed By: #### 8 5499 #### [facility] [address] [place] [address], [place] Sodium [Moles/Vol] 142 mmol/L Normal 136-145 [facility] Comment on above: Order Comment: No: D o not add to previous draw Performed By: #### 8 5499 #### [facility] [address] [place] [address], [facility] Urea nitrogen [Mass/Vol] 25 mg/dL Normal 7-25 [facility] Comment on above: Order Comment: No: D o not add to previous draw Performed By: #### 8 5499 #### [facility] [address] [place] [address], [facility] POC GLUCOSE LABon 07-23-2021 Glucose [Mass/Vol] 325 mg/dL High 70-100 [facility] Comment on above: Performed By: #### 8 5499 #### [facility] [address] [place] [address], [place] Glucose [Mass/Vol] 290 mg/dL High 70-100 [facility] Comment on above: Performed By: #### 1 0070, 63871, 33216, 36835 #### [facility] [address] [place] [address], [place] Glucose [Mass/Vol] 253 mg/dL High 70-100 [facility] Comment on above: Performed By: #### 1 0070, 49953, 71046, 09925 #### [facility] [address] [place] [address], [place] Glucose [Mass/Vol] 211 mg/dL High 70-100 [facility] Comment on above: Performed By: #### 8 5499 #### [facility] [address] [facility] [address], [facility] PROTHROMBIN TIMEon INR Coag (PPP) [Relative time] 1.92 {INR} High 0.91-1.16 [facility] Comment on above: Order Comment: Unkno [...] 1995;108:231S-246S. Performed By: #### 8 5499 #### [facility] [address] PT Coag (PPP) [Time] 21.9 s High 12.3-14.8 [facility] Comment on above: Order Comment: Unkno wn Result Comment: ALL RESULTS MUST BE INTERPRETED WITH RESPECT TO BLOOD DRAWING ARTIFACT OR DILUTION ERROR OF ANTICOAGULANT AT THE TIME OF SAMPLING. Performed By: #### 8 5499 #### [facility] [address] [facility]. [address] APTTon 07-22-2021 aPTT Coag (Bld) [Time] 37.1 s High 25.0-35.0 [facility] Comment on above: Order Comment: No: [...] THIS PURPOSE. Performed By: #### 1 0070, 18262, 62673, 51221 #### [facility] [address] BASIC METABOLIC PANELon - Calcium [Mass/Vol] 8.3 mg/dL Low 8.6-10.3 [facility] Comment on above: Order Comment: No: D o not add to previous draw Performed By: #### 8 5499 #### [facility] [address] [place] [address], [place] Chloride [Moles/Vol] 109 mmol/L High 98-107 [facility] Comment on above: Order Comment: No: D o not add to previous draw Performed By: #### [id number] #### [facility] [address] [place] [address], [place] CO2 [Moles/Vol] 28 mmol/L Normal 21-31 [facility] Comment on above: Order Comment: No: D o not add to previous draw Performed By: #### [id number] #### [facility] [address] [place] [address], [place] Creatinine [Mass/Vol] 1.48 mg/dL High 0.70-1.30 [facility] Comment on above: Order Comment: No: D o not add to previous draw Performed By: #### [id number] #### [facility] [address] [place] [address], [facility] eGFR- 59 ml/min/1.73sq m Abnormal >60 [facility] Comment on above: Order Comment: No: D o not add to previous draw Performed By: #### 8 [id number] #### [facility] [address] [place] [address], [place] eGFR- non- 48 ml/min/1.73sq m Abnormal >60 [facility] Comment on above: Order Comment: No: D o not add to previous draw Performed By: #### 8 [id number] #### [facility] [address] [place] [address], [place] Glucose [Mass/Vol] 216 mg/dL High 70-100 [facility] Comment on above: Order Comment: No: D o not add to previous draw Performed By: #### [id number] #### [facility] [address] [place] [address], [facility] Potassium [Moles/Vol] 4.6 mmol/L Normal 3.5-5.1 [facility] Comment on above: Order Comment: No: D o not add to previous draw Performed By: #### 8 [id number] #### [facility] [address] [place] [address], [place] Sodium [Moles/Vol] 141 mmol/L Normal 136-145 [facility] Comment on above: Order Comment: No: D o not add to previous draw Performed By: #### 8 [id number] #### [facility] [address] [place] [address], [facility] Urea nitrogen [Mass/Vol] 26 mg/dL High 7-25 [facility] Comment on above: Order Comment: No: D o not add to previous draw Performed By: #### 8 [id number] #### [facility] [address] [place] [address], [facility] CBC COMPLETE BLOOD COUNTon - Erythrocyte distribution width (RBC) [Ratio] 13.2 % Normal 11.5-15.0 [facility] Comment on above: Order Comment: No: D o not add to previous draw Performed By: #### [id number] #### [facility] [address] [place] [address], [place] Hematocrit (Bld) [Volume fraction] 45.8 % Normal 39.0-50.0 [facility] Comment on above: Order Comment: No: D o not add to previous draw Performed By: #### [id number] #### [facility] [address] [place] [address], [place] Hemoglobin (Bld) [Mass/Vol] 14.8 g/dL Normal 13.0-17.0 [facility] Comment on above: Order Comment: No: D o not add to previous draw Performed By: #### 8 [id number] #### [facility] [address] [place] [id number], [facility] MCH (RBC) [Entitic mass] 31.0 pg Normal 27.0-33.0 [facility] Comment on above: Order Comment: No: D o not add to previous draw Performed By: #### [id number] #### [facility] [address] [place] [address], [facility] MCHC (RBC) [Mass/Vol] 32.3 g/dL Normal 32.0-35.0 [facility] Comment on above: Order Comment: No: D o not add to previous draw Performed By: #### 8 [id number] #### [facility] [address] [place] [id number], [facility] MCV (RBC) [Entitic vol] 95.8 fL Normal 82.0-98.0 [facility] Comment on above: Order Comment: No: D o not add to previous draw Performed By: #### 8 [id number] #### [facility] [address] [place] [id number], [facility] Nucleated RBC/100 WBC (Bld) [Ratio] 0 % Normal 0-0 [facility] Comment on above: Order Comment: No: D o not add to previous draw Performed By: #### 8 [id number] #### [facility] [address] [place] [id number], [facility] PLAT CNT 209 10*3/uL Normal 150-400 [facility] Comment on above: Order Comment: No: D o not add to previous draw Performed By: #### 8 [id number] #### [facility] [address] [place] [id number], [facility] RBC (Bld) [#/Vol] 4.78 10*6/uL Normal 4.20-5.70 [facility] Comment on above: Order Comment: No: D o not add to previous draw Performed By: #### 8 [id number] #### [facility] [address] [place] [address], [facility] WBC (Bld) [#/Vol] 8.89 10*3/uL Normal 4.00-10.60 [facility] Comment on above: Order Comment: No: D o not add to previous draw Performed By: #### 8 [id number] #### [facility] [address] [place] [address], [facility] LIVER BATTERYon 07-22-2021 Albumin [Mass/Vol] 3.2 g/dL Low 3.5-5.7 [facility] Comment on above: Performed By: #### 8 [id number] #### [facility] [address] [place] [address], [facility] ALKALINE PHOSPH 111 IU/L High 34-104 [facility] Comment on above: Performed By: #### 8 [id number] #### [facility] [address] [place] [address], [facility] ALT [Catalytic activity/Vol] 23 U/L Normal 7-52 [facility] Comment on above: Performed By: #### 8 [id number] #### [facility] [address] [place] [address], [facility] AST [Catalytic activity/Vol] 17 U/L Normal 13-39 [facility] Comment on above: Performed By: #### 8 [id number] #### [facility] [address] [place] [address], [facility] Bilirubin [Mass/Vol] 0.3 mg/dL Normal 0.3-1.0 [facility] Comment on above: Performed By: #### 8 [id number] #### [facility] [address] [place] [address], [facility] Bilirubin.direct [Mass/Vol] 0.0 mg/dL Normal 0.0-0.2 [facility] Comment on above: Performed By: #### 8 [id number] #### [facility] [address] [place] [address], [place] Protein [Mass/Vol] 5.5 g/dL Low 6.0-8.3 [facility] Comment on above: Performed By: #### 8 [id number] #### [facility] [address] [place] [address], [place] MAGNESIUM BLOODon 07-22-2021 Magnesium [Mass/Vol] 2.0 mg/dL Normal 1.9-2.7 [facility] Comment on above: Order Comment: No: D o not add to previous draw Performed By: #### 8 [id number] #### [facility] [address] [place] [address], [place] PHOSPHORUS BLOODon Phosphate [Mass/Vol] 3.0 mg/dL Normal 2.5-5.0 [facility] Comment on above: Order Comment: No: D o not add to previous draw Performed By: #### 8 [id number] #### [facility] [address] [place] [address], [place] POC GLUCOSE LABon 07-22-2021 Glucose [Mass/Vol] 223 mg/dL High 70-100 [facility] Comment on above: Performed By: #### 1 0070, 81112, [id number], [id number] #### [facility] [address] [place] [address], [place] Glucose [Mass/Vol] 222 mg/dL High 70-100 [facility] Comment on above: Performed By: #### 8 [id number] #### [facility] [address] [place] [address], [place] Glucose [Mass/Vol] 245 mg/dL High 70-100 [facility] Comment on above: Performed By: #### 8 [id number] #### [facility] [address] [place] [address], [place] Glucose [Mass/Vol] 202 mg/dL High 70-100 [facility] Comment on above: Performed By: #### 1 0070, 34817, 71959, 31884 #### [facility] [address] [place] [address], [facility] PROTHROMBIN TIMEon INR Coag (PPP) [Relative time] 2.27 {INR} High 0.91-1.16 [facility] Comment on above: Order Comment: No: [...] CHEST 1995;[id number]. Performed By: #### 1 0070, 13139, 61635, 11379 #### [facility] [address] [place] [address], [facility] PT Coag (PPP) [Time] 24.9 s High 12.3-14.8 [facility] Comment on above: Order Comment: No: D o not add to previous draw Result Comment: ALL RESULTS MUST BE INTERPRETED WITH RESPECT TO BLOOD DRAWING ARTIFACT OR DILUTION ERROR OF ANTICOAGULANT AT THE TIME OF SAMPLING. Performed By: #### 1 0070, 07315, 20100, 42841 #### [facility] [address] [place] [address], [facility] Basic Metabolic Panelon 07-06 Calcium [Mass/Vol] 9.4 mg/dL Normal 8.2-10.2 [facility] Comment on above: Performed By: #### H EPATIC, CBC, LIPASE, BMP #### [facility] [address] Chloride [Moles/Vol] 103 mmol/L Normal 95-114 [facility] Comment on above: Performed By: #### H EPATIC, CBC, LIPASE, BMP #### [facility] [address] CO2 [Moles/Vol] 26.9 mmol/L Normal 22.0-30.0 [facility] Comment on above: Performed By: #### H EPATIC, CBC, LIPASE, BMP #### [address] Creatinine [Mass/Vol] 1.66 mg/dL High 0.64-1.27 [facility] Comment on above: Performed By: #### H EPATIC, CBC, LIPASE, BMP #### [address] Creatinine Clr Calc Pharmacy 68.90 [facility] Comment on above: Performed By: #### H EPATIC, CBC, LIPASE, BMP #### [address] Estimated GFR ( Beata 51 [facility] Comment on above: Result Comment: GFR estimated reference range: According to KDOQI guidelines, <60 ml/min/1.73m2 is sufficient to diagnose a patient with chronic kidney disease. Performed By: #### H EPATIC, CBC, LIPASE, BMP #### [facility] [address] [place] [address] Estimated GFR (Non- Am 42 [facility] Comment on above: Performed By: #### H EPATIC, CBC, LIPASE, BMP #### [address] Glucose [Mass/Vol] 442 mg/dL High 70-100 [facility] Comment on above: Result Comment: [facility] Glucose Reference Range is dependent on time and content of last meal. Glucose of more than 200 mg/dL in a nonstressed, ambulatory subject supports the diagnosis of Diabetes Mellitus. ADA recommended reference range Performed By: #### H EPATIC, CBC, LIPASE, BMP #### [facility] [address] Potassium [Moles/Vol] 4.1 mmol/L Normal 3.5-5.1 [facility] Comment on above: Performed By: #### H EPATIC, CBC, LIPASE, BMP #### [facility] [address] Sodium [Moles/Vol] 140 mmol/L Normal 136-146 [facility] Comment on above: Performed By: #### H EPATIC, CBC, LIPASE, BMP #### [facility] [address] Urea nitrogen [Mass/Vol] 29 mg/dL High 9-23 [facility] Comment on above: Performed By: #### H EPATIC, CBC, LIPASE, BMP #### [facility] [address] COVID-19 Antigenon 1 COVID-19 [facility] [...] its performance Tamera Disclaimer characteristic determined by [employer] and Tamera Disclaimer validated at [facility]. This Tamera Disclaimer test has not been [...] is terminated or revoked sooner. PERFORMED BY: [facility] [place] [address] PATHOLOGIST SURGICAL GARMENT ASSEMBLER TO [place] M.D. 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 This test has not been FDA cleared [...] is terminated or revoked sooner. PERFORMED BY: [place] [address] PATHOLOGIST SURGICAL GARMENT ASSEMBLER TO [place] M.D. Performed By: #### C OVID-19 TAMERA, SOFIANEG, COVID 19 [facility] #### [facility] [address] [place], [place] [id number] [facility] CT abdomen pelvis wo conon 1 CT abdomen pelvis wo con [facility] [place] [address] [place] [id number] Scan Report Signed Patient: Andry Pierre MR#: [id number] [birth year] : 1960 Acct:[id number] Age/Sex: 60 / M ADM Date: 07/21/21 Loc: Room: 8J9824-8 Type: ADM INOo Attending Dr: Feliciano Hernandez [...] Ricks Jr., M.D.07/21/2021 9:15 AM Dictation Location: [place] [address] Transcribed By: [facility] 07/21/21914 Dictated By: Duke Ricks Jr, MD 07/21/21903 Signed By: 07/21/21914 Normal [facility] Coagulation Profileon 2020 aPTT Coag (Bld) [Time] 37.9 s High 25.1-36.5 [facility] Comment on above: Result Comment: PERF ORMED BY: [facility] [address] [place] [address] PATHOLOGIST SURGICAL GARMENT ASSEMBLER TO [place] M.D. Performed By: #### P P #### [address] INR Coag (PPP) [Relative time] 2.0 {INR} Normal [facility] Comment on above: Result Comment: INR Therapeutic [...] 4.5 Performed By: #### P P #### [address] PT Coag (PPP) [Time] 22.5 s High 9.0-12.9 [facility] Comment on above: Performed By: #### P P #### [address] Complete Blood Count Auto Di ffon 07-21-2021 Basophils (Bld) [#/Vol] 0.1 10*3/uL Normal 0.0-0.2 [facility] Comment on above: Result Comment: PERF ORMED BY: [place] [address] PATHOLOGIST SURGICAL GARMENT ASSEMBLER TO [place] M.D. Performed By: #### H EPATIC, CBC, LIPASE, BMP #### [address] Basophils/100 WBC (Bld) 0.6 % Normal . [facility] Comment on above: Performed By: #### H EPATIC, CBC, LIPASE, BMP #### [address] Eosinophils (Bld) [#/Vol] 0.4 10*3/uL Normal 0.0-0.45 [facility] Comment on above: Performed By: #### H EPATIC, CBC, LIPASE, BMP #### [address] [place] [address] [place] Eosinophils/100 WBC (Bld) 4.3 % Normal . [facility] Comment on above: Performed By: #### H EPATIC, CBC, LIPASE, BMP #### [address] Erythrocyte distribution width (RBC) [Ratio] 13.7 % Normal 12.0-14.8 [facility] Comment on above: Performed By: #### H EPATIC, CBC, LIPASE, BMP #### [address] Hematocrit (Bld) [Volume fraction] 45.9 % Normal 38.8-50.0 [facility] Comment on above: Performed By: #### H EPATIC, CBC, LIPASE, BMP #### [address] Hemoglobin (Bld) [Mass/Vol] 15.4 g/dL Normal 13.0-17.0 [facility] Comment on above: Performed By: #### H EPATIC, CBC, LIPASE, BMP #### [address] Lymphocytes (Bld) [#/Vol] 2.9 10*3/uL Normal 1.00-4.8 [facility] Comment on above: Performed By: #### H EPATIC, CBC, LIPASE, BMP #### [address] Lymphocytes/100 WBC (Bld) 28.4 % Normal . [facility] Comment on above: Performed By: #### H EPATIC, CBC, LIPASE, BMP #### [address] MCH (RBC) [Entitic mass] 32.0 pg Normal 27.5-35.2 [facility] Comment on above: Performed By: #### H EPATIC, CBC, LIPASE, BMP #### [address] MCV (RBC) [Entitic vol] 95.2 fL Normal 83.5-101 [facility] Comment on above: Performed By: #### H EPATIC, CBC, LIPASE, BMP #### [address] Mean Corpuscular HGB Conc 33.6 g/dL Normal 32.5-35.6 [facility] Comment on above: Performed By: #### H EPATIC, CBC, LIPASE, BMP #### [address] Monocytes (Bld) [#/Vol] 0.7 10*3/uL Normal 0.0-0.8 [facility] Comment on above: Performed By: #### H EPATIC, CBC, LIPASE, BMP #### [address] Monocytes/100 WBC (Bld) 6.7 % Normal . [facility] Comment on above: Performed By: #### H EPATIC, CBC, LIPASE, BMP #### [address] Neutrophils (Bld) [#/Vol] 6.0 10*3/uL Normal 1.8-7.7 [facility] Comment on above: Performed By: #### H EPATIC, CBC, LIPASE, BMP #### [address] Neutrophils/100 WBC (Bld) 60.0 % Normal . [facility] Comment on above: Performed By: #### H EPATIC, CBC, LIPASE, BMP #### [address] Nucleated RBC/100 WBC (Bld) [Ratio] 0.1 % Normal 0-0.5 [facility] Comment on above: Performed By: #### H EPATIC, CBC, LIPASE, BMP #### [address] Platelet mean volume (Bld) [Entitic vol] 8.7 fL Normal 6.6-10.1 [facility] Comment on above: Performed By: #### H EPATIC, CBC, LIPASE, BMP #### [address] [place] [address] [place] Platelets (Bld) [#/Vol] 215 10*3/uL Normal 150-450 [facility] Comment on above: Performed By: #### H EPATIC, CBC, LIPASE, BMP #### [address] RBC (Bld) [#/Vol] 4.83 10*6/uL Normal 3.90-5.60 [facility] Comment on above: Performed By: #### H EPATIC, CBC, LIPASE, BMP #### [address] WBC (Bld) [#/Vol] 10.0 10*3/uL Normal 4.5-11.0 [facility] Comment on above: Performed By: #### H EPATIC, CBC, LIPASE, BMP #### [address] Glucose Poct Glucometerson 1 Commemt1 Glu2: Cleaned Meter [facility] Comment on above: Result Comment: PERF ORMED BY: [place] [address] PATHOLOGIST SURGICAL GARMENT ASSEMBLER TO [place] M.D. Performed By: #### H EPATIC, CBC, LIPASE, BMP #### [address] Glucose [Mass/Vol] 267 mg/dL Normal [facility] Comment on above: Result Comment: [facility] Glucose Reference Range is dependent on time and content of last meal. Glucose of more than 200 mg/dL in a nonstressed, ambulatory subject supports the diagnosis of Diabetes Mellitus. Performed By: #### H EPATIC, CBC, LIPASE, BMP #### [address] Commemt1 Glu2: Cleaned Meter Normal [facility] Comment on above: Result Comment: PERF ORMED BY: [place] [address] PATHOLOGIST SURGICAL GARMENT ASSEMBLER TO [place] M.D. Performed By: #### H EPATIC, CBC, LIPASE, BMP #### [address] Glucose [Mass/Vol] 252 mg/dL Normal [facility] Comment on above: Result Comment: [place] [facility] Glucose Reference Range is dependent on time and content of last meal. Glucose of more than 200 mg/dL in a nonstressed, ambulatory subject supports the diagnosis of Diabetes Mellitus. Performed By: #### H EPATIC, CBC, LIPASE, BMP #### [address] Commemt1 Glu2: Cleaned Meter Normal [facility] Comment on above: Result Comment: PERF ORMED BY: [place] [address] PATHOLOGIST SURGICAL GARMENT ASSEMBLER TO [place] M.D. Performed By: #### H EPATIC, CBC, LIPASE, BMP #### [address] Glucose [Mass/Vol] 100 mg/dL Normal [facility] Comment on above: Result Comment: [place] [facility] Glucose Reference Range is dependent on time and content of last meal. Glucose of more than 200 mg/dL in a nonstressed, ambulatory subject supports the diagnosis of Diabetes Mellitus. Performed By: #### H EPATIC, CBC, LIPASE, BMP #### [address] Glucose [Mass/Vol] 140 mg/dL Normal [facility] Comment on above: Result Comment: [place] [facility] Glucose Reference Range is dependent on time and content of last meal. Glucose of more than 200 mg/dL in a nonstressed, ambulatory subject supports the diagnosis of Diabetes Mellitus. PERFORMED BY: [place] [address] PATHOLOGIST SURGICAL GARMENT ASSEMBLER TO [place] M.D. Performed By: #### H EPATIC, CBC, LIPASE, BMP #### [address] Hepatic Panelon 07-21-2021 Albumin [Mass/Vol] 3.5 g/dL Normal 3.2-5.5 [facility] Comment on above: Performed By: #### H EPATIC, CBC, LIPASE, BMP #### [facility] [address] [place] [address] Albumin/Globulin [Mass ratio] 1.1 {ratio} Normal [facility] Comment on above: Performed By: #### H EPATIC, CBC, LIPASE, BMP #### [facility] [address] [place] [address] ALP [Catalytic activity/Vol] 115 U/L High 32-92 [facility] Comment on above: Performed By: #### H EPATIC, CBC, LIPASE, BMP #### [facility] [address] [place] [address] ALT [Catalytic activity/Vol] 30 U/L Normal 10-60 [facility] Comment on above: Performed By: #### H EPATIC, CBC, LIPASE, BMP #### [facility] [address] [place] [address] AST [Catalytic activity/Vol] 19 U/L Normal 10-42 [facility] Comment on above: Performed By: #### H EPATIC, CBC, LIPASE, BMP #### [facility] [address] [place] [address] Bilirubin [Mass/Vol] 0.7 mg/dL Normal 0.3-1.2 [facility] Comment on above: Performed By: #### H EPATIC, CBC, LIPASE, BMP #### [facility] [address] [place] [address] Bilirubin,Indirect Not performed Normal [facility] Comment on above: Performed By: #### H EPATIC, CBC, LIPASE, BMP #### [facility] [address] [place] [address] Bilirubin.indirect [Mass/Vol] mg/dL Normal 0.0-0.4 [facility] Comment on above: Performed By: #### H EPATIC, CBC, LIPASE, BMP #### [facility] [address] [place] [address] Globulin (S) [Mass/Vol] 3.2 g/dL Normal [facility] Comment on above: Performed By: #### H EPATIC, CBC, LIPASE, BMP #### [address] Protein [Mass/Vol] 6.7 g/dL Normal 6.1-7.9 [facility] Comment on above: Performed By: #### H EPATIC, CBC, LIPASE, BMP #### [address] Lactic Acidon 07-21-2021 Lactate [Moles/Vol] 1.2 mmol/L Normal 0.5-2.2 [facility] Comment on above: Result Comment: PERF ORMED BY: [place] [address] PATHOLOGIST SURGICAL GARMENT ASSEMBLER TO [place] M.D. Performed By: #### L ACTIC #### [address] Lipaseon 07-21-2021 Lipase [Catalytic activity/Vol] 43.0 U/L Normal 22-51 [facility] Comment on above: Result Comment: PERF ORMED BY: [place] [address] PATHOLOGIST SURGICAL GARMENT ASSEMBLER TO [place] M.D. Performed By: #### H EPATIC, CBC, LIPASE, BMP #### [address] Tamera Ag Negativeon 07-21-20 21 Tamera Ag Negative Negative Normal Negative [facility] Comment on above: Result Comment: This is a duplicate Tamera SARS Antigen (GIOVANNA) result to be used for statistical tracking purpose only. PERFORMED BY: [place] [address] PATHOLOGIST SURGICAL GARMENT ASSEMBLER TO [place] M.D. Performed By: #### C OVID-19 TAMERA, SOFIANEG, COVID 19 [facility] #### [address] Urinalysison 07-21-2021 Appearance (U) Clear Normal Clear [facility] Comment on above: Order Comment: Name Collection Type:: Clean-Voided Midstream Performed By: #### U A #### [facility] [address] [place] [address] [place] Bilirubin,Urine Negative Normal Negative [facility] Comment on above: Order Comment: Name Collection Type:: Clean-Voided Midstream Performed By: #### U A #### [facility] [address] [place] [address] [place] Color (U) Yellow Normal Yellow [facility] Comment on above: Order Comment: Name Collection Type:: Clean-Voided Midstream Performed By: #### U A #### [facility] [address] [place] [address] [place] Glucose Ql (U) >=1000 High Normal [facility] Comment on above: Order Comment: Name Collection Type:: Clean-Voided Midstream Performed By: #### U A #### [facility] [address] [place] [address] [place] Ketones Ql (U) Negative Normal Negative [facility] Comment on above: Order Comment: Name Collection Type:: Clean-Voided Midstream Performed By: #### U A #### [facility] [address] [place] [address] [place] Leukocyte esterase Test strip Ql (U) Negative Normal Negative [facility] Comment on above: Order Comment: Name Collection Type:: Clean-Voided Midstream Performed By: #### U A #### [facility] [address] [place] [address] [place] Nitrite,Urine Negative Normal Negative [facility] Comment on above: Order Comment: Name Collection Type:: Clean-Voided Midstream Performed By: #### U A #### [facility] [address] [place] [address] [place] Occult Blood,Urine Negative Normal Negative [facility] Comment on above: Order Comment: Name Collection Type:: Clean-Voided Midstream Result Comment: PERF ORMED BY: [place] [address] PATHOLOGIST SURGICAL GARMENT ASSEMBLER JIANLAN SUN M.D. Performed By: #### U A #### [facility] [address] pH (U) 6.5 [pH] Normal 5.0-9.0 [facility] Comment on above: Order Comment: Name Collection Type:: Clean-Voided Midstream Performed By: #### U A #### [address] Protein,Urine Negative Normal Negative [facility] Comment on above: Order Comment: Name Collection Type:: Clean-Voided Midstream Performed By: #### U A #### [address] Specificy [place],Urine 1.026 Normal 1.001-1.030 [facility] Comment on above: Order Comment: Name Collection Type:: Clean-Voided Midstream Performed By: #### U A #### [address] Urobilinogen,Urine Normal Normal Normal [facility] Comment on above: Order Comment: Name Collection Type:: Clean-Voided Midstream Performed By: #### U A #### [address] General Surgery Office/Clini c Noteon 05-31-2021 [...] hematuria Head injury Heart disease 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 Normal [facility] Comment on above: Result Comment: Elec tronically Signed By: NEO GEORGE, Andry Daniel\Date and Time Signed: 05/31/21 11:26 EDT Ambulatory Clinical Summaryo n 05-29-2021 Ambulatory Clinical Summary {[id number]}CD:6143 68 Normal [facility] Outside Colonoscopyon 2020 Outside Colonoscopy [id number]#1.00CD:127 Normal [facility] Pathology Noteon 05-25-2021 Pathology Note [id number]#1.00CD:127 Normal [facility] May 23, 2021 Luis Mccormick, [facility] [place] [address] Re: ANDRY PIERRE Date of : 1960 [...] Andry Adames MD General Surgery [facility] Consent for Procedure/Surger yon 05-21-2021 Consent for Procedure/Surgery [id number]#1.00CD:127 [facility] Immunization Recordson 05-21 Immunization Records [id number]#1.00CD:127 Normal [facility] Ambulatory Clinical Summaryo n 05-18-2021 Ambulatory Clinical Summary {[id number]}CD:6143 68 Normal [facility] General Surgery Office/Clini c Noteon 05-18-2021 General Surgery Office/Clinic Note HPI Staff Est patient , RUQ pain x 8 wks , u/s done 05/03/21 @ [facility]. 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 [facility] Comment on above: Result Comment: Elec tronically Signed By: NEO GEORGE, Andry Daniel\Date and Time Signed: 05/18/21 15:[address] - CT Reporton 05-17-20[address] - [address] Report [id number]#1.00CD:127 [facility] RAD - MISCon 05-17-2021 RAD - MISC [id number]#1.00CD:127 [facility] RAD - MISC [id number]#1.00CD:127 [facility] RAD - Ultrasound Reporton RAD - Ultrasound Report [id number]#1.00CD:127 [facility] RAD - Ultrasound Reporton RAD - Ultrasound Report [id number]#1.00CD:127 [facility] Physician Referralon 021 Physician Referral [id number]#1.00CD:127 [facility] Provider Letter [facility] March 23, 2021 Luis Mccormick, [facility] [place] [address] [address] [place] [address] Re: ANDRY PIERRE Date of : 1960 Thank you for your referral of Andry Pierre who was seen on consultation of excision of lump on the neck on March 14, 2021. I have enclosed my consultation notes for your review. I will be happy to follow Andry should his symptoms persist. Sincerely, Andry Adames MD General Surgery [facility] Ambulatory Clinical Summaryo n 03-14-2021 Ambulatory Clinical Summary {[id number]}CD:6143 68 Flash [facility] Patient Educationon 03-14-20 Patient Education Exercising [...] your health care provider or diet and research nutritionist (dietitian). This may include: ? Eating [...] calories than (more content not included)... Normal [facility] Physician Referralon Physician Referral [id number]#1.00CD:127 Normal [facility] Patient Correspondenceon Patient Correspondence [id number]#1.00CD:127 [facility] Reminderson 01-10-2021 Reminders - From: Rosa [...] LR Letter mailed regular/certified letter today. Normal [facility] Provider Letteron 01-09-2021 Provider Letter (Inserted Image. Pina ble to display) January 09, 2021 ANDRY PIERRE [address] [place] [address] ANDRY PIERRE 1960 SENT VIA CERTIFIED AND REGULAR MAIL Dear Mr. Peirre, This letter is to inform you the providers of [facility] [employer] will no longer be responsible for your routine medical care due to your noncompliance. Emergency care only will be provided for the thirty (30) days following this letter. During this time period we suggest that you find another physician for your medical needs. A listing of area physicians can be found on [facility]'s website at [email or web address] or you may contact your health plan. We will be glad to forward your records to your new physician as long as we receive a signed release of records form. Sincerely, Larry Barfield M.D., GadielCSamia. [facility] [address] [place] [address] [facility] Patient Correspondenceon Patient Correspondence [id number]#1.00CD:127 Normal [facility] Provider Letter Office-[facility] 11-24-2020 Provider Letter [facility] November 24, 2020 ANDRY PIERRE [address] [place] [address] ANDRY PIERRE 1960 SENT VIA CERTIFIED AND [...] Larry Barfield M.D., Bernadine.A.C.S. [facility] [address], [place] [address] [facility] Reminderson 08-02-2020 Reminders - From: Radha King MA To: EU - Clinical; Sent: 07/19/2020 14:09:34 EDT Show up: 08/02/2020 14:09:00 EDT Subject: fish/cytol Reminder/Recall fish/cytol done 07/19/2020 done, sent msg to prw to review results Normal [facility] Outside Cardiovascularon Outside Cardiovascular [id number]#1.00CD:127 Normal [facility] Outside Radiologyon 08-01-20 20 Outside Radiology [id number]#1.00CD:127 Normal [facility] Outside Radiology [id number]#1.00CD:127 Normal [facility] Progress Note-Physicianon Progress Note-Physician [id number]#1.00CD:127 Normal [facility] Urology Office/Clinic Noteon 07-25-2020 Urology Office/Clinic Note [...] ago. Pt. 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 Pt. states no biopsy was done, just a blood test. PSA was 1.39 done 07/07/20. Cath was removed at [facility] this morning. Dysuria: denies pain or burning Incomplete bladder emptying: yes pt had cath for 2 weeks placed by [facility], cath was removed this morning at [facility] Hematuria: pt states he had visible [...] since last encounter. Reviewed CT scan and [facility] ER notes Review of Systems PHQ [...] Retention of urine, unspecified) Patient reported to [facility] ER for leaking around catheter on [...] contributing t (more content not included)... Normal [facility] Comment on above: Result Comment: Elec tronically Signed By: Yon GEORGE, Lefty Jamil\.br\Date and Time Signed: 07/25/20 12:11 EDT Urology Office/Clinic Note Chief Complaint [facility] 07/10/2020 HPI Staff [facility] on 07/10/2020 due to leaking around catheter. US of kidneys done 11/17/2019. Pt. states after having a Ct scan Pt. was not able to urinate and had catheter placed. Pt. does not have a history of urine retention. 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 Pt. 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 Pt. states [...] abdominal pain. History of Present Illness Reviewed [employer] paper works. 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 ago by a in [place]. Pt. states that there was never a [...] urine fo (more content not included)... Normal [facility] Comment on above: Result Comment: Elec tronically Signed By: Yon GEORGE, Lefty Jamil\.br\Date and Time Signed: 07/25/20 11:44 EDT Lab Reportson 07-24-2020 Lab Reports [id number]#1.00CD:127 Normal [facility] UroVysion Fish and Urine Cyt o ([facility])on 07-24-2020 UV[facility] & UC Diagnosis Info Invalid Interpretation Code [facility] Comment on above: Result Comment: A:Ur ine,Urine:Voided [...] on: 07/24/2020 10:42:51 Performed By: #### 1 [id number] ####[facility] [address] [place] [address] - [address] Reporton 07-21-[address] - [address] Report [id number]#1.00CD:127 [facility] ED Note-Physicianon 07-20-20 ED Note-Physician [id number]#1.00CD:127 [facility] Formson 07-20-2020 Forms [id number]#1.00CD:127 [facility] Ambulatory Clinical Summaryo n 07-19-2020 Ambulatory Clinical Summary {[id number]}CD:6143 68 [facility] Ambulatory Clinical Summary {[id number]}CD:6143 68 [facility] Auth for Release of Medical Recordson 07-19-2020 Auth for Release of Medical Records [id number]#1.00CD:127 [facility] Patient Educationon 07-19-20 Patient Education Family Medicine [...] Document Reviewed: 12/14/2012 ExitCare? Patient Information ?2013 [employer]. [facility] Patient Education Family Medicine Acute Urinary Retention, [...] your urine. Then you and your personal banking officer can decide at your earliest convenience how [...] to a urinary tract infection. Only take jnpd-uew-ohjlhpl or prescription medicines for pain, discomfort, or fever as directed by your caregiver. SEEK IMMEDIATE MEDICAL CARE IF: You develop chills, fever, or show signs of generalized illness that occurs prior to seeing your caregiver. Document Released: 12/29/2001 Document Revised: 12/14/2012 Document Reviewed: 09/13/2009 ExitCare? Patient Information ?2013 [employer]. [facility] Provider Letter [facility] Luis Mccormick [address] [place] [address] Re: ANDRY PIERRE Date of : 1960 [...] based on PSA alone per pt in [facility]. Equally confusing is the fact [...] a remote history of prostate cancer in [facility] by a outside urologist without [...] to determine his PSA's were done in [facility]. I began suspecting the patient [...] impression of (more content not included)... Normal [facility] RAD - CT Reporton 07-19-[address] Report [id number]#1.00CD:127 Normal [facility] UroVysion Fish and Urine Cyt o ( Labs)on 07-19-2020 [facility] Method of Extraction Voided Normal [facility] Comment on above: Performed By: #### 1 [id number] ####[facility] [address] [place] [address] [facility] Number of Jars 1 Invalid Interpretation Code [facility] Comment on above: Performed By: #### 1 [id number] ####[facility] [address] [place] [address] [facility] Specimen Urine Normal [facility] Comment on above: Performed By: #### 1 [id number] ####[facility] [address] [place] [address] [facility] Type of Service Technical Only Normal [facility] Comment on above: Performed By: #### 1 [id number] ####[facility] [address] [place] [address] Vital Signs Date Time Vital Sign Value Performing Clinician Facility 11-06-2023 09:57-0500 Body height 175.3 cm Obed Florian MD Work Phone: [facility] 11-06-2023 09:57-0500 Body weight 123.38 kg Obed Florian MD Work Phone: [facility] 11-06-2023 09:57-0500 Diastolic blood pressure 89 mm[Hg] Obed Florian MD Work Phone: [facility] 11-06-2023 09:57-0500 Heart rate 81 /min Obed Florian MD Work Phone: [facility] 11-06-2023 09:57-0500 SaO2% (BldA) [Mass fraction] 95 % Obed Florian MD Work Phone: [facility] 11-06-2023 09:57-0500 Systolic blood pressure 127 mm[Hg] Obed Florian MD Work Phone: [facility] 01-21-2022 07:23-0400 Body height 182.9 cm Pacc 3 Work Phone: [facility] 01-21-2022 07:23-0400 Body temperature 97.2 [degF] Pacc 3 Work Phone: [facility] 01-21-2022 07:23-0400 Body weight 140.21 kg Pacc 3 Work Phone: [facility] 01-21-2022 07:23-0400 Diastolic blood pressure 84 mm[Hg] Pacc 3 Work Phone: [facility] 01-21-2022 07:23-0400 Heart rate 57 /min Pacc 3 Work Phone: [facility] 01-21-2022 07:23-0400 SaO2% (BldA) [Mass fraction] 99 % Pacc 3 Work Phone: [facility] 01-21-2022 07:23-0400 Systolic blood pressure 134 mm[Hg] Pacc 3 Work Phone: [facility] 11-13-2021 12:20-0500 Body height 182.88 cm Sanjay Dooley Other [facility] Other 11-13-2021 12:20-0500 Body mass index (BMI) [Ratio] 42.04 kg/m2 Sanjay Dooley Other [facility] Other 11-13-2021 12:20-0500 Body temperature 96.2 [degF] Sanjay Dooley Other [facility] Other 11-13-2021 12:20-0500 Body weight 140.62 kg Sanjay Dooley Other [facility] Other 11-13-2021 12:20-0500 Diastolic blood pressure 60 mm[Hg] Sanjay Dooley Other [facility] Other 11-13-2021 12:20-0500 Respiratory rate 20 /min Sanjay Dooley Other [facility] Other 11-13-2021 12:20-0500 SaO2% (BldA) [Mass fraction] 96 % Sanjay Dooley Other [facility] Other 11-13-2021 12:20-0500 Systolic blood pressure 92 mm[Hg] Sanjay Dooley Other [facility] Other Encounters Encounter Date Encounter Type Care Provider Facility Start: 11-06-2023 End: 11-07-2023 ambulatory LUIS MCCORMICK Facility:[facility] Start: 11-06-2023 End: 11-06-2023 ambulatory LUIS MCCORMICK Facility:[facility] Start: 11-06-2023 End: 11-06-2023 Patient encounter procedure Obed Florian MD Work Phone: Neurology Comment on above: Diabetic polyneuropa thy associated with type 2 diabetes mellitus (HCC) [E11.42] (Primary Dx); Weakness; Obesity, Class III, BMI 40-49.9 (morbid obesity) (HCC) Start: 10-21-2023 End: 10-22-2023 ambulatory [facility] Start: 10-10-2023 ambulatory LUIS Licona [facility] Start: 10-08-2023 End: 10-14-2023 Emergency department patient visit [facility] Start: 09-19-2023 End: 09-20-2023 ambulatory LUIS Livan MCCORMICK Facility:[facility] Start: 09-12-2023 Telephone encounter Shane bowling PA-C Work Phone: [facility] Comment on above: DBS problem Start: 08-19-2023 End: 08-19-2023 ambulatory [facility] Start: 08-11-2023 End: 08-12-2023 ambulatory Ramon Mendiola MD Facility:[facility] Start: 07-17-2023 End: 07-18-2023 ambulatory DEE[facility] Start: 07-07-2023 Telephone encounter Glenn Rose MD Work Phone: [facility] Start: 05-21-2023 End: 05-21-2023 ambulatory [facility] Start: 02-20-2023 End: 02-21-2023 ambulatory [facility] Facility:[facility] Start: 02-20-2023 End: 02-20-2023 ambulatory [facility] Start: 02-03-2023 End: 03-05-2023 ambulatory SHAIKH Brenda DEWEY Facility:[facility] Start: 01-17-2023 End: 01-17-[address] Start: 01-09-2023 End: 01-09-2023 ambulatory [facility] Start: 01-07-2023 End: 01-08-[address] LUIS MCCORMICK . Facility:[facility] Start: 01-06-2023 End: 01-06-2023 ambulatory [facility] Start: 01-06-2023 End: 01-31-2023 ambulatory CARMICHAEL H [...] Encounter for preprocedural laboratory examination LEMUEL RODRIGUEZ [facility] Start: 07-08-2022 End: 07-09-2022 ambulatory LEMUEL [...] encounter Glenn Rose MD Work Phone: [facility] Comment on above: Results Start: 01-21-2022 End: 01-21-2022 ambulatory P[facility] 3 Work Phone: Pre Anesthesia Comment on above: Pre-op evaluation (P rimary Dx); Essential tremor; Type 2 diabetes mellitus with other specified complication, with long-term current use of insulin ([facility]); Obesity, Class III, BMI >= 40; Essential hypertension; Difficult intravenous access; Acute, but ill-defined, cerebrovascular disease; Obstructive sleep apnea syndrome; Chronic obstructive pulmonary disease, unspecified COPD type ([facility]); Tobacco use; Tracheal stenosis; Gastroesophageal reflux disease, unspecified whether esophagitis present; Pulmonary embolus with infarction ([facility]); Congestive heart failure, unspecified HF chronicity, unspecified heart failure type ([facility]); Stage 3 chronic kidney disease, unspecified whether stage 3a or 3b CKD ([facility]) 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) (Primary Dx) Start: 01-21-2022 End: 01-21-2022 Nursing evaluation of patient and report Kerwin Brito RN Work Phone: [facility] Comment on above: Essential tremor (Pr imary Dx) Start: 01-21-2022 End: 01-21-2022 Patient encounter procedure Glenn Rose MD Work Phone: [facility] Comment on above: Essential tremor (Pr imary Dx) Start: 01-21-2022 End: 01-21-2022 Admission to [facility] 3 Work Phone: [facility] Start: 01-21-2022 End: 01-21-2022 Preprocedural examination done Pacc Main 3 Work Phone: Pre Anesthesia Start: 01-04-2022 Telephone encounter Harris chowdhury MD Work Phone: [facility] Comment on above: DBS MARIA G message Start: 11-26-2021 End: 11-26-2021 ambulatory Sanjay Dooley Other [facility] Other Start: 11-26-2021 Telephone encounter Sanjay Dooley [facility] Start: 11-13-2021 End: 11-13-2021 ambulatory Sanjay Dooley Other [facility] Other Start: 11-13-2021 Office outpatient ne w 45 minutes Sanjay Dooley [facility] [place] Start: 11-13-2021 Telephone encounter Sanjay Dooley [facility] Start: 07-21-2021 End: 07-27-2021 ambulatory JESUS BAUDILIO Facility:[facility] Procedures Date Procedure Procedure Detail Performing Clinician Start: 02-20-[address] CARITO MCCORMICK . Comment on above: Performed By: #### A 1C #### [facility] [address] [place] [address] Dr. Miah Buck Start: 07-26-2021 Resection of Gallbla dder, Percutaneous Endoscopic Approach DAVON OLIVIER Start: 07-24-2021 DILATION OF COMMON H EPATIC DUCT, ENDO AMY REMY Plan of Treatment Date Care Activity Detail Author Start: 02-21-2028 Prostate Cancer Screening Discussion Prostate Cancer Screening Discussion [facility] Start: 02-21-2028 Prostate specific antigen measurement Prostate Cancer Screening Discussion [facility] Start: 2025 Pneumococcal vaccination [facility] Start: 10-27-2023 Complete blood count Hemoglobin/Juan tocrit [facility] Start: 10-27-2023 Creatinine measurement Serum Creatin ine [facility] Start: 10-27-2023 Serum Creatinine Serum Creatinine [facility] Start: 06-06-2023 Covid-19 Vaccine ( season) Covid-19 Vaccine ( season) [facility] Start: 06-06-2023 Influenza vaccination Influenza Vacc ine (#1) [facility] Start: 01-21-2023 HEMOGLOBIN/HEMATOCRIT HEMOGLOBIN/HEM ATOCRIT [facility] Start: 01-21-2023 SERUM CREATININE SERUM CREATININE Cl [facility] Start: 11-28-2022 SERUM CREATININE SERUM CREATININE [facility] Start: 06-06-2022 Influenza vaccination INFLUENZA (Sea son Ended) [facility] Start: 04-22-2022 Hemoglobin A1c measurement HbA1C [facility] Start: 04-22-2022 Hemoglobin A1c/Hemoglobin.total in Blood HBA1C [facility] Start: 01-20-2022 End: 03-22-2022 Hemoglobin A1c/Hemoglobin.total in Blood HGB A1C Lab Routine Type 2 diabetes mellitus with other specified complication, with long-term current use of insulin (HCC) Pre-op evaluation Expected: 01/20/2022, Expires: 03/22/2022 [facility] Work Phone: Comment on above: Expected: 01/20/2022 , Expires: 03/22/2022 Start: 02-03-2021 COVID-19 VACCINE (2 - Booster for Mary Ellen series) COVID-19 VACCINE (2 - Booster for Mary Ellen series) [facility] Start: 2020 Hepatitis B Vaccine (1 of 3 - Risk 3-dose series) Hepatitis B Vaccine (1 of 3 - Risk 3-dose series) [facility] Start: 2020 RSV Vaccine (1 - 1-d ose 60+ series) RSV Vaccine (1 - 1-dose 60+ series) [facility] Start: 12-12-2018 Hemoglobin A1c/Hemoglobin.total in Blood HBA1C [facility] Start: 2015 PROSTATE CANCER SCREENING DISCUSSION PROSTATE CANCER SCREENING DISCUSSION [facility] Start: 2010 SHINGRIX VACCINE (1 of 2) SHINGRIX VACCINE (1 of 2) [facility] Start: 2005 COLOGUARD (FIT-DNA) COLOGUARD (FIT-D NA) [facility] Start: 2005 Colonoscopy COLONOSCOPY [facility] Start: 2005 COLORECTAL CANCER SCREENING COLORECTAL CANCER SCREENING [facility] Start: [address] COLONOGRAPHY [facility] Start: 2005 FECAL OCCULT BLOOD FECAL OCCULT BLOO D [facility] Start: 2005 Screening for malign ant neoplasm of colon [facility] Start: 2005 SIGMOIDOSCOPY SIGMOIDOSCOPY [facility] Start: 10-07-2000 Urine microalbumin profile DTaP,Tdap,Td Vaccine (1 - Tdap) [facility] Start: 1990 Zoledronic acid therapy Alpha- 1 Antitrypsin Deficiency Screening [facility] Start: 1979 Urine microalbumin profile [facility] Start: 1978 ANNUAL PCP TEAM AIRPLANE PATROL PILOT HAKEEM DISEASE VISIT ANNUAL PCP TEAM CHRONIC DISEASE VISIT [facility] Start: 1978 BP CONTROLLED (<130/80) BP CONTROLLE D (<130/80) [facility] Start: 1978 Hepatitis B surface antibody level LDL CHOLESTEROL [facility] Start: 1978 HEPATITIS C SCREENING HEPATITIS C [facility] Start: 1978 Hepatitis C screening Hepatitis C [facility] Start: 1978 HIV SCREENING HIV SCREENING [facility] Start: 1978 HIV screening HIV Screening [facility] Start: 1970 3 comp foot exam completed DIABETIC FOOT EXAM [facility] Start: 1970 Diabetic foot examination Diabetic Foot Exam [facility] Start: 1970 Glaucoma screening Dilated Retinal E xam [facility] Start: 1970 Hepatitis B screening URINE AL BUMIN:CREATININE RATIO [facility] Start: 1970 Hepatitis C antibody , confirmatory test DILATED RETINAL EXAM [facility] Hemoglobin A1c/Hemoglobin.total in Blood HGB A1C Lab Routine Type 2 diabetes mellitus with other specified complication, with long-term current use of insulin (HCC) Pre-op evaluation 01/21/2022 9:30 AM EDT [facility] Work Phone: [facility] R Lab Routine 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) Ordered: 01/21/2022 [facility] Work Phone: Comment on above: Ordered: 01/21/2022 [facility] Immunizations Immunization Date Immunization Notes Care Provider Tierney childersgail 07-19-2021 influenza virus vacc ine, unspecified formulation Glenn Rose MD Work Phone: [facility] 07-07-2020 Influenza, injectabl e, Madin Eden Canine Kidney, preservative free, quadrivalent Harris Faustin MD Work Phone: [facility] 08-01-2019 influenza virus vacc ine, unspecified formulation Harris Faustin MD Work Phone: [facility] 08-10-2018 influenza, injectabl e, quadrivalent, preservative free Harris Faustin MD Work Phone: [facility] 07-24-2018 Influenza, injectabl e, Madin Carrizozo Canine Kidney, preservative free, quadrivalent Harris Faustin MD Work Phone: [facility] 09-10-2017 influenza virus vacc ine, unspecified formulation Harris Faustin MD Work Phone: [facility] 08-11-2017 pneumococcal polysaccharide vaccine, 23 valent Harris Faustin MD Work Phone: [facility] 08-05-2016 influenza virus vacc ine, unspecified formulation Harris Faustin MD Work Phone: [facility] 11-13-2015 pneumococcal conjuga te vaccine, 13 valent Harris Faustin MD Work Phone: [facility] 07-18-2015 influenza virus vacc ine, whole virus Harris Faustin MD Work Phone: [facility] 07-06-2015 influenza, high dose seasonal, preservative-free Harris Faustin MD Work Phone: [facility] 09-13-2014 influenza, injectabl e, quadrivalent, preservative free Harris Faustin MD Work Phone: [facility] 06-25-2013 influenza, seasonal, injectable, preservative free Harris Faustin MD Work Phone: [facility] 06-17-2012 influenza, seasonal, injectable Harris Faustin MD Work Phone: [facility] 09-11-2010 pneumococcal polysaccharide vaccine, 23 valent Harris Faustin MD Work Phone: [facility] Payers Date Payer Category Payer Medicaid 2021 Medicare [id number] 2021 Medicare [id number] 2021 Unknown [id number] 2019 Unknown ANTHSUNDAY [place] S AND BLUE [employer]IELD ANTHEM MEDIHARVEY O [id number] 2019-Present [phone] [address] [place] [address] [facility] [id number] 2019 Unknown [id number] 1960 Unknown [id number] 2.16.840.1.991421.3.579.2.6 47 1960 Unknown [id number] 2.16.840.1.027514.3.579.2.5 93 1960 Unknown [id number] 2.16.840.1.656434.3.579.2.5 93 1960 Unknown [id number] 2.16.840.1.043107.3.579.2.5 93 1960 Unknown [id number] 2.16.840.1.110776.3.579.2.5 93 1960 Unknown [id number] 2.16.840.1.977249.3.579.2.5 93 1960 Unknown [id number] 2.16.840.1.720386.3.579.2.5 93 1960 Unknown [id number] 2.16.840.1.579375.3.579.2.5 93 1960 Unknown [id number] 2.16.840.1.450544.3.579.2.5 93 1960 Unknown [id number] 2.16.840.1.010331.3.579.2.5 93 1960 Unknown [id number] 2.16.840.1.996022.3.579.2.5 93 1960 Unknown [id number] 2.16.840.1.563416.3.579.2.5 93 1960 Unknown [id number] 2.16.840.1.052105.3.579.2.5 93 1960 Unknown [id number] 2.16.840.1.195313.3.579.2.5 93 1960 Unknown [id number] 2.16.840.1.693605.3.579.2.5 93 1960 Unknown [id number] 2.16.840.1.426716.3.579.2.5 93 1960 Unknown [id number] 2.16.840.1.560848.3.579.2.5 93 1960 Unknown [id number] 2.16.840.1.790015.3.579.2.5 93 1960 Unknown [id number] 2.16.840.1.613701.3.579.2.5 93 1960 Unknown [id number] 2.16.840.1.518329.3.579.2.5 93 1960 Unknown [id number] 2.16.840.1.178698.3.579.2.1 96 1960 Unknown [id number] 2.16.840.1.391909.3.579.2.1 286 1960 Unknown [id number] 2.16.840.1.171178.3.579.2.1 286 1960 Unknown [id number] 2.16.840.1.882985.3.579.2.1 286 1960 Unknown [id number] 2.16.840.1.622609.3.579.2.1 286 1960 Unknown [id number] 2.16.840.1.617862.3.579.2.1 286 1960 Unknown [id number] 2.16.840.1.883127.3.579.2.1 286 1959 Private Health Insurance [id number] Unknown [id number] 2.16.840.1.202821.19 Social History Date Type Detail Facility Start: 05-31-2013 End: 09-19-2023 Tobacco smoking status NHIS Never smoked tobacco [facility] Work Phone: Start: 05-31-2013 Tobacco use and exposure Former smokeless tobacco user [facility] Work Phone: End: 09-17-2015 History of tobacco use Chews Tobacco [facility] Work Phone: Start: 06-15-2021 End: 11-06-2023 Alcohol intake Current non-drinker of alcohol (finding) [facility] Start: 01-04-2020 History SDOH Alcohol Frequency 1 [facility] Start: 01-04-2020 Tobacco Comment 30 years [facility] Start: 1960 Sex Assigned At Male [facility] Start: 05-31-2013 End: 09-19-2023 Tobacco use and exposure User of smokeless tobacco [facility] Work Phone: Start: 01-11-2022 End: 01-21-2022 Exposure to SARS-CoV-2 (event) Not sure [facility] Start: 01-04-2020 End: 09-10-2020 Sex Assigned At [facility] History of tobacco use Cigarette Smoker [facility] Work Phone: Start: 01-04-2020 End: 09-10-2020 History of Social function [facility] How often to you hav e a drink containing alcohol? Never [facility] Average Number of Drinks Not on file [facility] Start: 01-03-2020 Gender identity Identifies as male gender (finding) [facility] Start: 01-03-2020 Sexual orientation Heterosexual (demetrius no) [facility] Medical Equipment Procedure Code Equipment Code Equipment Origin al Text Equipment Identifier Dates Ipg Activa Sc Db s Dual Extn - [id number] Start: 06-30-2013 Comment on above: Description: ACTIVA SC Multi-program Leonor rostimulator for deep Brain Stimulation Neurostimulator Activa Sc 0-10.5v 2-250hz 0-25.5ma 2.4inx2.2in .4in - [id number] Start: 07-24-2016 Neurostimulator Activa Sc 0-10.5v 2-250hz 0-25.5ma 2.4inx2.2in .4in - [id number] Start: 06-30-2019 Neurostimulator Activa Sc 0-10.5v 2-250hz 0-25.5ma 2.4inx2.2in .4in - [id number] Start: 01-30-2022 Use as directed sq bid Comment on above: Use as directed sq bid Clinical Notes 03-22-2021 to 11-06-2023 Obed Florian MD - 11/06/2023 10:43 AM ESTTelephone Encounter - Shane Parham PA-C - 09/12/2023 3:08 PM ESTTelephone Encounter - Rhianna Sena - 09/12/2023 2:41 PM EST Note Date & Type Note Facility 11-06-2023 Note HNO ID: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 [address] Cardiology 01/21/22 Preforms Laminator Relationship Specialty Start Date End Date Luis Mccormick MD PCP - General Family Medicine 07/15/16 Saúl Lunsford MD [address] [place] [facility] [place] [phone] Cardiology 01/21/22 Preforms Laminator Relationship Specialty Start Date End Date Luis Mccormick MD PCP - General Family Medicine 07/15/16 Saúl Lunsford MD [address] [place] [phone] Cardiology 01/21/22 FOR RECORDS PERTAINING TO PATIENTS [...] BE BASED ON THE PRIMARY CLINICAL RECORDS. [employer] [facility]. provides no warranty or guarantee of the accuracy or completeness of information in this document.
--- NOTE | 2023-11-13 08:30 | CT_ITS ---
The [address] [address] Patient Name: ANDRY PIERRE MRN: [id number] date: 1960 Sex: M Assigned Patient Location: CT Current Patient Location: CT Accession/Order Number: [id number] Exam Date: 11/13/2023 08:15 Report Date: 11/13/2023 09:56 At the request of: LUIS MCCORMICK Procedure: CT chest wo con EXAM: CT chest wo con HISTORY: Edema R60.9 COMPARISON: 07/30/2018 TECHNIQUE: Axial CT images were obtained of the chest without intravenous contrast. Multiplanar reconstructions were performed. CHEST FINDINGS: Lungs/Pleura: There is a mild right infrahilar hazy pulmonary opacity. A few scattered punctate pulmonary nodules are present, some of which are calcified, likely due to remote granulomatous disease. No pleural effusion or pneumothorax. Cardiovascular: The heart is normal in size. Mild coronary artery calcifications are present. The aorta and pulmonary arteries are unremarkable. Pericardium: No effusion. Mediastinum: Unremarkable. Lymph Nodes: No lymph node enlargement identified on this nonenhanced CT. Calcified right hilar lymph node present, likely due to remote granulomatous disease. Bones: No acute osseous abnormality. Mild multilevel degenerative changes are present in the visualized spine. Soft tissues: A loop recorder device is noted at the left anterior chest wall. Upper Abdomen: Prior cholecystectomy. There are multiple punctate calcifications in the spleen, likely due to remote granulomatous disease. CT/CT chest wo con IMPRESSION: 1. Subtle right infrahilar pulmonary opacity, possibly due to trace pulmonary edema or early pneumonia. 2. A few scattered punctate pulmonary nodules are present, most of which are calcified, likely due to remote granulomatous disease. 3. Loop recorder device present. Electronically authenticated by: EILEEN BILL Date: 11/13/2023 09:56
== END 2023-11-13 08:12 | disposition home or self-care (01) ==
LOC: CT 08:11
PROVIDERS: PCP Family Medicine; Visit Provider Family Medicine
DX: R60.9 Edema, unspecified (principal)
CPT/HCPCS: 71250

== ENCOUNTER 2023-11-24 16:57 | Emergency (ER) | payer MEDICARE, SELFPAY ==
[2023-11-24 17:12] VITALS: BP 191/103; PULSE 94; RESP 20; TEMP 37.6; O2SAT 98; BMI 41.3
--- NOTE | 2023-11-24 17:17 | XR_ITS ---
The [address] [address] Patient Name: ANDRY PIERRE MRN: [id number] date: 1960 Sex: M Assigned Patient Location: ED.MAIN Current Patient Location: ER Accession/Order Number: [id number] Exam Date: 11/24/2023 17:32 Report Date: 11/24/2023 18:38 At the request of: CHECO RIVAS Procedure: XR lumbar spine 2-3V EXAM: XR lumbar spine 2-3V TECHNIQUE: AP, lateral and lumbosacral views lumbar spine HISTORY: fall COMPARISON: None. FINDINGS: No acute fracture or subluxation. Soft tissues are unremarkable. Mild degenerative endplate change at L3-L4 and L4-L5. XR/XR lumbar spine 2-3V IMPRESSION: No acute fracture or subluxation. Electronically authenticated by: ALISA HANKS Date: 11/24/2023 18:38
--- NOTE | 2023-11-24 17:17 | XR_ITS ---
The [address] [address] Patient Name: ANDRY PIERRE MRN: [id number] date: 1960 Sex: M Assigned Patient Location: ED.MAIN Current Patient Location: ER Accession/Order Number: [id number] Exam Date: 11/24/2023 17:32 Report Date: 11/24/2023 18:21 At the request of: CHECO RIVAS Procedure: XR femur LT 2V EXAM: XR femur LT 2V, XR hip LT min 2V TECHNIQUE: AP and lateral views left femur. AP and lateral views left hip. HISTORY: fall COMPARISON: None. FINDINGS: No acute fracture or dislocation. Mild degenerative change of the left hip. Soft tissues are unremarkable. Small os acetabula accessory ossicle noted. XR/XR femur LT 2V IMPRESSION: No acute fracture or dislocation. Electronically authenticated by: ALISA HANKS Date: 11/24/2023 18:21
--- NOTE | 2023-11-24 17:17 | XR_ITS ---
The [address] [address] Patient Name: ANDRY PIERRE MRN: [id number] date: 1960 Sex: M Assigned Patient Location: ED.MAIN Current Patient Location: ER Accession/Order Number: [id number] Exam Date: 11/24/2023 17:32 Report Date: 11/24/2023 18:21 At the request of: CHECO RIVAS Procedure: XR hip LT min 2V EXAM: XR femur LT 2V, XR hip LT min 2V TECHNIQUE: AP and lateral views left femur. AP and lateral views left hip. HISTORY: fall COMPARISON: None. FINDINGS: No acute fracture or dislocation. Mild degenerative change of the left hip. Soft tissues are unremarkable. Small os acetabula accessory ossicle noted. XR/XR hip LT min 2V IMPRESSION: No acute fracture or dislocation. Electronically authenticated by: ALISA HANKS Date: 11/24/2023 18:21
--- NOTE | 2023-11-24 17:18 | CT_ITS ---
The [address] [address] Patient Name: ANDRY PIERRE MRN: [id number] date: 1960 Sex: M Assigned Patient Location: ED.MAIN Current Patient Location: Accession/Order Number: [id number] Exam Date: 11/24/2023 17:32 Report Date: 11/24/2023 18:35 At the request of: CHECO RIVAS Procedure: CT head/brain wo con EXAMINATION: CT head/brain wo con TECHNIQUE: Axial CT images were obtained through the brain. Sagittal and coronal reformatted images were also obtained. Dose reduction techniques were achieved by using automated exposure control and/or adjustment of mA and/or kV according to patient size and/or use of iterative reconstruction technique. HISTORY: Fell, hit head, on Coumadin COMPARISON: None. FINDINGS: Intracranial Bleed: No evidence for acute intracranial bleed. Intracranial Mass: No evidence for mass lesion. No mass effect or midline shift. Left-sided thalamus stimulator probe noted without gross complication. Extra-axial spaces: The ventricular system is normal caliber. White/Salazar Matter: No acute cortical infarct. No significant white matter abnormality. Skull/Scalp: No evidence for skull fracture or lesion. Orbits and sinuses: The orbits appear unremarkable. The visualized paranasal sinuses are clear. CT/CT head/brain wo con IMPRESSION: No acute intracranial pathology. Electronically authenticated by: ALISA HANKS Date: 11/24/2023 18:35
--- NOTE | 2023-11-24 17:19 | ED.GENADUL1 ---
HPI - General Adult General Chief complaint: Extremity Injury, Lower Stated complaint: FELL YESTERDAY-HIP/BACK/SHOULDER PAIN Time Seen by Provider: 11/24/23 17:13 Source: family Mode of arrival: Wheelchair Limitations: no limitations History of Present Illness HPI narrative: 63-year-old male presents for pain in his left lower back and left hip and left upper leg. He fell in his bathroom and hit this area and hit the back of his head as well. He is on Coumadin. No neck pain or loss of consciousness or vomiting. No chest pain shortness of breath or abdominal pain. No injury to either arm or his right leg. The pain is moderate and worse when he moves. Related Data Home Medications Medication Instructions Recorded Confirmed atorvastatin 40 mg tablet 40 mg PO .QD 04/01/23 10/08/23 candesartan 8 mg tablet 4 mg PO .QD 04/01/23 10/08/23 cetirizine 10 mg tablet 10 mg PO DAILY PRN allergy symptoms 04/01/23 10/08/23 cholecalciferol (vitamin D3) 50 50 mcg PO DAILY 04/01/23 10/08/23 mcg (2,000 unit) capsule (D3-2000) clonidine HCl 0.1 mg tablet 0.05 mg PO BID 04/01/23 10/08/23 furosemide 40 mg tablet 40 mg PO BID 04/01/23 10/08/23 montelukast 10 mg tablet 10 mg PO .QD 04/01/23 10/08/23 nifedipine 90 mg tablet,extended 90 mg PO .QD 04/01/23 10/08/23 release 24 hr oxybutynin chloride 10 mg 10 mg PO .QD 04/01/23 10/08/23 tablet,extended release 24 hr pantoprazole 40 mg tablet,delayed 40 mg PO .QD 04/01/23 10/08/23 release potassium chloride 20 mEq 20 meq PO .QD 04/01/23 10/08/23 tablet,extended release topiramate 50 mg tablet 100 mg PO Q12H 04/01/23 10/08/23 tramadol 50 mg tablet 100 mg PO Q12H PRN pain 04/01/23 10/08/23 warfarin 5 mg tablet 10 mg PO .QD 04/01/23 10/08/23 empagliflozin 10 mg tablet 10 mg PO QDAY 10/08/23 10/08/23 (Jardiance) indomethacin 50 mg capsule 50 mg PO BID 10/08/23 10/08/23 insulin degludec 100 unit/mL (3 56 unit subcut BID 10/08/23 10/08/23 mL) subcutaneous pen (Tresiba FlexTouch U-100 insulin) Allergies Allergy/AdvReac Type Severity Reaction Status Date / Time diazepam [From Valium] Allergy Verified 09/22/23 10:28 gabapentin [From Neurontin] Allergy Verified 09/22/23 10:28 BETA BLOCKERS Allergy Headache Uncoded 09/22/23 10:28 Review of Systems ROS Narrative A ten point review of systems is negative except as noted above. [facility] Medical History Acid reflux ?K21.9 - Gastro-esophageal reflux disease without esophagitis (ICD-10) Angina at rest ?I20.89 - Other forms of angina pectoris (ICD-10) CHF (congestive heart failure) ?I50.9 - Heart failure, unspecified (ICD-10) COPD (chronic obstructive pulmonary disease) ?J44.9 - Chronic obstructive pulmonary disease, unspecified (ICD-10) Emphysema lung ?J43.9 - Emphysema, unspecified (ICD-10) High cholesterol ?E78.00 - Pure hypercholesterolemia, unspecified (ICD-10) Implantable loop recorder present ?Z95.818 - Presence of other cardiac implants and grafts (ICD-10) Kidney failure ?N19 - Unspecified kidney failure (ICD-10) Palpitations ?R00.2 - Palpitations (ICD-10) Stroke ?I63.9 - Cerebral infarction, unspecified (ICD-10) Surgical History H/O arthroscopic knee surgery ?Z98.890 - Other specified postprocedural states (ICD-10) H/O inguinal hernia repair ?Z98.890 - Other specified postprocedural states (ICD-10) ?Z87.19 - Personal history of other diseases of the digestive system (ICD-10) History of Achilles tendon repair ?Z98.890 - Other specified postprocedural states (ICD-10) History of ankle surgery ?Z98.890 - Other specified postprocedural states (ICD-10) History of cardiac cath ?Z98.890 - Other specified postprocedural states (ICD-10) History of carpal tunnel release ?Z98.890 - Other specified postprocedural states (ICD-10) History of hydrocelectomy ?Z98.890 - Other specified postprocedural states (ICD-10) History of sinus surgery ?Z98.890 - Other specified postprocedural states (ICD-10) History of tonsillectomy ?Z90.89 - Acquired absence of other organs (ICD-10) Hx of cholecystectomy ?Z90.49 - Acquired absence of other specified parts of digestive tract (ICD-10) Status post deep brain stimulator placement ?Z96.89 - Presence of other specified functional implants (ICD-10) Status post emergency tracheotomy for assistance in breathing ?Z93.0 - Tracheostomy status (ICD-10) Social History Smoking status: Never smoker Highest level of school completed/degree received: Bachelor's degree Exam Narrative Exam Narrative: Nurses note and vital signs reviewed and patient is not hypoxic. General: The patient appears no apparent distress. Skin: Warm, dry, no pallor noted. There is no rash noted. Head: Normocephalic, atraumatic; scalp shows no hematoma or abrasion. C-spine is nontender. Eye: Normal conjunctiva, no drainage Ears, Nose, Mouth, and Throat: oral mucosa is moist. Nares patent. Cardiovascular: Regular Rate and Rhythm Respiratory: Patient is in no distress, no accessory muscle use, lungs are clear to auscultation, no wheezing, rales or rhonchi Back: Tenderness present in the lower back going towards the left hip. GI: Obese and nontender Musculoskeletal: Joints have full range of motion. Right leg right arm and left arm are all nontender. Neurological: A&O x4, normal speech; he is tremorous and this is chronic according to the patient Psychiatric: Cooperative Constitutional Vital Signs, click to edit/add: Last Vital Signs Temp 99.6 F 11/24/23 17:12 Pulse 70 11/24/23 18:37 Resp 18 11/24/23 18:37 BP 148/70 H 11/24/23 18:37 Pulse Ox 99 11/24/23 18:37 Course Vital Signs Vital signs: Vital Signs Temperature 99.6 F 11/24/23 17:12 Pulse Rate 94 H 11/24/23 17:12 Respiratory Rate 20 11/24/23 17:12 Blood Pressure 191/103 H 11/24/23 17:12 Pulse Oximetry 98 11/24/23 17:12 Temperature 99.6 F 11/24/23 17:12 Pulse Rate 70 11/24/23 18:37 Respiratory Rate 18 11/24/23 18:37 Blood Pressure 148/70 H 11/24/23 18:37 Pulse Oximetry 99 11/24/23 18:37 Medical Decision Making MDM Narrative Medical decision making narrative: CAT scan and x-rays are negative. He is already on Ultram at home and he has an appointment for neurology tomorrow and the PCP appointment in 3 days and he will keep those appointments. Treatment diagnosis and follow-up were discussed with the patient and his family. Differential Diagnosis Differential Diagnosis: Fall, intracranial hemorrhage, fracture Imaging Data CT scan - head: Radiologist's impression: ITS Impressions Femur X-Ray 11/24/23 17:17 IMPRESSION: No acute fracture or dislocation. Electronically authenticated by: ALISA HANKS Date: 11/24/2023 18:21 Hip X-Ray 11/24/23 17:17 IMPRESSION: No acute fracture or dislocation. Electronically authenticated by: ALISA HANKS Date: 11/24/2023 18:21 Lumbar Spine X-Ray 11/24/23 17:17 IMPRESSION: No acute fracture or subluxation. Electronically authenticated by: ALISA HANKS Date: 11/24/2023 18:[address] 11/24/23 17:18 IMPRESSION: No acute intracranial pathology. Electronically authenticated by: ALISA HANKS Date: 11/24/2023 18:35 Discharge Plan Discharge Chief Complaint: Extremity Injury, Lower Clinical Impression: Fall Patient Disposition: Home, Self-Care Time of Disposition Decision: 18:45 Condition: Good Mode of Transportation: Private Vehicle Prescriptions / Home Meds: No Action atorvastatin 40 mg tablet 40 mg PO .QD candesartan 8 mg tablet 4 mg PO .QD Rx Instructions: patient states he takes 0.5 tab but hasn't filled since 05/28 clonidine HCl 0.1 mg tablet 0.05 mg PO BID furosemide 40 mg tablet 40 mg PO BID montelukast 10 mg tablet 10 mg PO .QD nifedipine 90 mg tablet extended release 24hr 90 mg PO .QD oxybutynin chloride 10 mg tablet extended release 24hr 10 mg PO .QD pantoprazole 40 mg tablet,delayed release (DR/EC) 40 mg PO .QD potassium chloride 20 mEq tablet extended release 20 meq PO .QD topiramate 50 mg tablet 100 mg PO Q12H tramadol 50 mg tablet 100 mg PO Q12H PRN (Reason: pain) warfarin 5 mg tablet 10 mg PO .QD cetirizine 10 mg tablet 10 mg PO DAILY PRN (Reason: allergy symptoms) cholecalciferol (vitamin D3) [D3-2000] 50 mcg (2,000 unit) capsule 50 mcg PO DAILY Jardiance 10 mg tablet 10 mg PO QDAY indomethacin 50 mg capsule 50 mg PO BID insulin degludec [Tresiba FlexTouch U-100] 100 unit/mL (3 mL) insulin pen 56 unit SUBCUT BID Instructions: Fall Prevention for Older Adults (ED), Fall Prevention (ED) Stand Alone Forms: Portal Instructions Referrals: Say Amato MD [Primary Care Provider] - 1 week
[2023-11-24 18:37] VITALS: BP 148/70; PULSE 70; RESP 18; O2SAT 99
== END 2023-11-24 18:55 | disposition home or self-care (01) ==
PROVIDERS: Emergency Provider Emergency Medicine; PCP Family Medicine
DX: Z04.3 Encounter for examination and observation following other accident (principal); M54.50 Low back pain, unspecified; M79.605 Pain in left leg; M25.552 Pain in left hip; Y92.002 Bathroom of unspecified non-institutional (private) residence as the place of occurrence of the external cause; W18.30XA Fall on same level, unspecified, initial encounter; Z79.01 Long term (current) use of anticoagulants; Z79.899 Other long term (current) drug therapy; Z79.4 Long term (current) use of insulin; K21.9 Gastro-esophageal reflux disease without esophagitis; I50.9 Heart failure, unspecified; J43.9 Emphysema, unspecified; E78.00 Pure hypercholesterolemia, unspecified; Z95.818 Presence of other cardiac implants and grafts; Z86.73 Personal history of transient ischemic attack (TIA), and cerebral infarction without residual deficits; Z90.49 Acquired absence of other specified parts of digestive tract; Z96.89 Presence of other specified functional implants
CPT/HCPCS: 70450; 72100; 73502; 73552; 99284

== ENCOUNTER 2023-11-27 08:07 | Outpatient (OUT) | payer MEDICARE, SELFPAY ==
--- NOTE | 2023-11-27 07:55 | PM.CN ---
Consult Note: HPI Data of Consult Patient: known to practice within the last 3 years Requesting Physician: Kimmie Ayoub NP Primary Care Provider: Say Amato MD Consult Narrative Reason for consult: f/u Narrative: Jono Grace a pleasant 62 year old male presents for evaluation and management of chronic low back pain with radiculopathy. Patient was unable to under go Right L3-4, L4-5 transforaminal epidural steroid injection due to high PT/INR.Patient continues to have moderate to severe low back pain that is radiating into bilateral legs, pain worse on right side. Patient has fallen again since last visit. Today rating pain 10/10 in low back and bilateral hips. Patient reports increase in pain with all activities, nothing improves his pain. Patient has failed to respond to gabapentin, lyrica, cymbalta, no relief from tramadol 100mg TID. Following with neurology who patient reports has been unable to diagnose his neurological problems. Patient continues to have tremors, increasing weakness, memory changes and forgetfulness, increase in falls. Pt has upcoming CT head/brain through Yudith GARZA at [facility] in [place], I called their office and he sees her again January 14. I have requested their most recent note. Patient reports he has been having trouble sleeping due to pain, no longer finding benefit to tramadol, is utilizing a pill organizer for his medications and his ensures he follows that. Patient has had home health services coming into the house but reports he will not have home health much longer. cc:: CC: Kimmie Ayoub NP Review of Systems ROS Status of ROS 10 or more systems reviewed and unremarkable except as noted in history and below Musculoskeletal Reports: back pain, extremity pain and muscle weakness Neurological Reports: confusion [facility] Medical History Acid reflux ?K21.9 - Gastro-esophageal reflux disease without esophagitis (ICD-10) Angina at rest ?I20.89 - Other forms of angina pectoris (ICD-10) CHF (congestive heart failure) ?I50.9 - Heart failure, unspecified (ICD-10) COPD (chronic obstructive pulmonary disease) ?J44.9 - Chronic obstructive pulmonary disease, unspecified (ICD-10) Emphysema lung ?J43.9 - Emphysema, unspecified (ICD-10) High cholesterol ?E78.00 - Pure hypercholesterolemia, unspecified (ICD-10) Implantable loop recorder present ?Z95.818 - Presence of other cardiac implants and grafts (ICD-10) Kidney failure ?N19 - Unspecified kidney failure (ICD-10) Palpitations ?R00.2 - Palpitations (ICD-10) Stroke ?I63.9 - Cerebral infarction, unspecified (ICD-10) Surgical History Status post emergency tracheotomy for assistance in breathing ?Z93.0 - Tracheostomy status (ICD-10) History of hydrocelectomy ?Z98.890 - Other specified postprocedural states (ICD-10) History of cardiac cath ?Z98.890 - Other specified postprocedural states (ICD-10) History of tonsillectomy ?Z90.89 - Acquired absence of other organs (ICD-10) History of sinus surgery ?Z98.890 - Other specified postprocedural states (ICD-10) History of carpal tunnel release ?Z98.890 - Other specified postprocedural states (ICD-10) H/O arthroscopic knee surgery ?Z98.890 - Other specified postprocedural states (ICD-10) History of ankle surgery ?Z98.890 - Other specified postprocedural states (ICD-10) History of Achilles tendon repair ?Z98.890 - Other specified postprocedural states (ICD-10) H/O inguinal hernia repair ?Z98.890 - Other specified postprocedural states (ICD-10) ?Z87.19 - Personal history of other diseases of the digestive system (ICD-10) Status post deep brain stimulator placement ?Z96.89 - Presence of other specified functional implants (ICD-10) Hx of cholecystectomy ?Z90.49 - Acquired absence of other specified parts of digestive tract (ICD-10) Social History Smoking status: Never smoker Highest level of school completed/degree received: Bachelor's degree Meds Home Medications and Allergies Home Medications Medication Instructions Recorded Confirmed Type atorvastatin 40 mg tablet 40 mg PO .QD 04/01/23 10/08/23 History candesartan 8 mg tablet 4 mg PO .QD 04/01/23 10/08/23 History cetirizine 10 mg tablet 10 mg PO DAILY PRN allergy symptoms 04/01/23 10/08/23 History cholecalciferol (vitamin D3) 50 50 mcg PO DAILY 04/01/23 10/08/23 History mcg (2,000 unit) capsule (D3-2000) clonidine HCl 0.1 mg tablet 0.05 mg PO BID 04/01/23 10/08/23 History furosemide 40 mg tablet 40 mg PO BID 04/01/23 10/08/23 History montelukast 10 mg tablet 10 mg PO .QD 04/01/23 10/08/23 History nifedipine 90 mg tablet,extended 90 mg PO .QD 04/01/23 10/08/23 History release 24 hr oxybutynin chloride 10 mg 10 mg PO .QD 04/01/23 10/08/23 History tablet,extended release 24 hr pantoprazole 40 mg tablet,delayed 40 mg PO .QD 04/01/23 10/08/23 History release potassium chloride 20 mEq 20 meq PO .QD 04/01/23 10/08/23 History tablet,extended release topiramate 50 mg tablet 100 mg PO Q12H 04/01/23 10/08/23 History tramadol 50 mg tablet 100 mg PO Q12H PRN pain 04/01/23 10/08/23 History warfarin 5 mg tablet 10 mg PO .QD 04/01/23 10/08/23 History empagliflozin 10 mg tablet 10 mg PO QDAY 10/08/23 10/08/23 History (Jardiance) indomethacin 50 mg capsule 50 mg PO BID 10/08/23 10/08/23 History insulin degludec 100 unit/mL (3 56 unit subcut BID 10/08/23 10/08/23 History mL) subcutaneous pen (Tresiba FlexTouch U-100 insulin) hydrocodone 7.5 mg-acetaminophen 1 tab PO BID PRN pain #60 tabs 11/27/23 Rx 325 mg tablet naloxone 4 mg/actuation nasal 4 mg intranasal Q2M PRN opioid 11/27/23 Rx spray (Narcan) overdose #2 ea Allergies Allergy/AdvReac Type Severity Reaction Status Date / Time diazepam [From Valium] Allergy Verified 09/22/23 10:28 gabapentin [From Neurontin] Allergy Verified 09/22/23 10:28 BETA BLOCKERS Allergy Headache Uncoded 09/22/23 10:28 Exam Constitutional Documenting provider has reviewed patient's vital signs: yes Common normals: no apparent distress, oriented x3, healthy appearing, alert and well nourished General appearance: cooperative Nutritional appearance: obese Orientation/consciousness: Yes oriented to person, Yes oriented to place, Yes oriented to time and Yes other (reports intermittent memory loss and disorientation) HENMT Common normals: normocephalic, hearing grossly normal bilaterally and moist oral mucous membranes Head and scalp: normocephalic Eye Common normals: PERRL Pupil: PERRL Neck & C-Spine Common normals: full ROM General: normal visual inspection Chest Common normals: inspection of chest normal Respiratory Common normals: normal respiratory effort, no retractions and no use of accessory muscles Back & Pelvis Lumbar spine/lower back: ROM limited, pain with ROM, lumbar spinal tenderness and straight leg raise positive right Sacroiliac joints: SI joint(s) abnormal Other: tenderness over the right LCIH nerve, positive thigh thrust, fabers, gaenslens pain following right LCIH nerve pattern radicular pain on right side radiculopathy when standing or sitting for extended periods of time negative internal external rotation of bilateral hips, no tenderness over GTB Extremity Common normals: normal to inspection and full ROM Neuro Common normals: oriented x3, CN's II-XII intact bilaterally, moves all extremities, no focal motor deficits, no sensory deficits noted and deep tendon reflexes 2+ bilaterally Sensorium/orientation: alert Gait (neuro): antalgic and assistive device used cane Motor exam: strength 5/5 throughout and no movement abnormalities noted Psych Common normals: mental status grossly normal, thought process normal, cooperative, affect normal, speech normal and activity/motor behavior normal Speech: normal speech Thought process: normal thought process Results Additional Findings Additional findings: I have checked an [place] report on this patient today and there are no aberrancies noted in the prescribing history.?? A drug screen was completed and reviewed within the last year, and if there has not been a drug screen completed we ordered one today to monitor higher risk, state monitored pain medication use. As part of providing excellent, safe, comprehensive care, the following was completed at our patient's visit: 1. A medication reconciliation and review to ensure accurate knowledge of current/active medications, including asking our patients to inform us about any [id number] medications or herbal remedies/nutritional supplements/alternative remedies. 2. A review to specifically ensure our patients have had annual screening for: elevated body mass index (BMI), tobacco use, screening for depression, and screening for unhealthy alcohol use. When screening is concerning, patients are provided with education and the specific recommendation to discuss the concerning health issue and treatment options with their primary care provider. Assessment and Plan Assessment and Plan (1) Lumbar radiculopathy, right: (2) Sacroiliac joint dysfunction of right side: (3) Chronic anticoagulation: (4) Chronic, continuous use of opioids: Assessment and Plan: I feel these medications are improving the patient's quality of life and allow them to tolerate activities of daily living as well as participate in recreational activity.? The patient does not report intolerable side effects. The patient is NOT opioid naive and non-pharmacologic and non-opioid treatment has failed to significantly relieve the patient's pain and improve functionality. The patient has a diagnosis that is related to a somatic or visceral pain etiology. ? ?? I reviewed with the patient the potential risks and side effects with the use of? opioid medications including but not limited to respiratory depression,? sedation, and even . I verified the patient has access to naloxone should? these effects occur. I advised the patient to avoid the use of any other? sedation substances including alcohol, THC, and benzodiazepines while? taking opioid medications due to the risk of compounding side effects and? detrimental outcomes. I reviewed the [employer], pain treatment agreement, urine? drug screen, and opioid start talking forms. The patient was advised to let? their family know they had Naloxone in case they would need to administer? the medication.? ?? A drug screen was completed within the last year, and no aberrancies were noted regarding their use of controlled substances. The patient understands they are subject to the terms and conditions of the pain contract that they have signed. ? ?? I have checked an [place]AR[place] report on this patient today and there are no aberrancies noted in the prescribing history.? (5) Chronic pain syndrome: Plan increase to hydrocodone-acetaminophen 7.5-325 BID PRN moderate to severe pain, tramadol 100mg TID no longer effective and hydrocodone-acetaminophen 5-325mg failed in the past. risks vs benefits discussed. continue to use pill organizer narcan discussed and prescribed continue current medications continue HEP continue f/u with neurology, we have requested records f/u 1 month
--- OUTSIDE RECORDS SUMMARY | 2023-11-27 08:11 | XMS_ITS | CCD ---
Author Name Unknown Address [address] [facility] [address] [place] [address] Organization [facility] Care Team Providers Care Mink Rancher Name Role Phone Luis Mccormick MD Primary Care Provider [phone] Luis Mccormick MD Primary Care Provider [phone] Jonn GEORGE, ab Pricemed Unavailable Omar Dooleylevi Unavailable JESUS RUSS Attending Unavailable JESUS RUSS [...] AVELAR Consulting Unavailable DARLENE VASQUEZ Attending Unavailable MEÑO VASQUEZISSA Admitting Unavailable DR LUIS REECE Primary Care Unavailable DARLENE VASQUEZ Consulting Unavailable SHAIKH Brenda DEWEY Attending Unavailable JODIE HURST Primary Care Unavailable SHAIKH Brenda DEWEY Admitting Unavailable SOFYA HIDALGO Attending Unavailable SOFYA HIDALGO Admitting Unavailable DR LUIS REECE Primary Care Unavailable ALISA HOLMAN Consulting Unavailable SOFYA HIDALGO Consulting Unavailable LOS BAIRES Consulting Unavailable BERRY, SOFYA Admitting Unavailable DR LUIS REECE Primary Care Unavailable DR ROCK AVELAR Consulting Unavailable SOFYA HIDALGO Attending Unavailable SOFYA HIDALGO Consulting Unavailable SHAIKH DEWEY H Attending Unavailable FAWWAD, CARMICHAEL H Admitting Unavailable HOY ., DR SMITH Primary Care Unavailable ARIS, JODIE Admitting Unavailable ARIS, JODIE Primary Care Unavailable ARSI, JODIE Attending Unavailable FAWWAD, CARMICHAEL H Admitting [...] HOY ., DR SMITH Primary Care Unavailable VALENTINO, DR ROCK Das Consulting Unavailable ARIS, JODIE Admitting Unavailable ARIS, JODIE Primary Care Unavailable ARIS, JODIE Attending Unavailable ARIS, JODIE Consulting Unavailable SURI BANDA Attending Unavailable SURI BANDA Admitting Unavailable ARIS, JODIE Primary Care Unavailable SURI BANDA Consulting Unavailable Luis Mccormick MD Primary Care Provider Jonn GEORGE, Ehab med Unavailable [phone] Marlena GEORGE, Ramon Morales Attending Unavailable HOY, [...] HIDALGO Attending Unavailable LEMUEL RODRIGUEZ Attending Unavailable VERONIKA, SURI Attending Unavailable LEMUEL RODRIGUEZ Admitting Unavailable JENNIFER, LEMUEL Attending Unavailable HOY, LUIS M Primary Care Unavailable HENNIGS, SHANE L Referring Unavailable HOY, LUIS M Primary Care Unavailable OBED FLORIAN Attending Unavailable HENNIGS, SHANE L Referring Unavailable HOY, LUIS M Primary Care Unavailable HENNIGS, SHANE L Referring Unavailable HOY, LUIS M Primary Care Unavailable HENNIGS, SHANE L Attending Unavailable Luis Mccormick MD Primary Care Provider [phone] Allergies Allergy Classification Reported Allergen(s) Allergy Type Date of Onset Reaction(s) Facility (9 sources) beta-Blocking agent; Translations: [BETA-BLOCKERS (BETA-ADRENERGIC BLOCKING AGTS)] Drug Allergy 07-24-20 11 Itching, Other: See Comments [facility] (15 sources) diazePAM; Translations: [DIAZEPAM] Drug Allergy 03-03-[address] [facility] (16 sources) gabapentin; Translations: [GABAPENTIN] Drug Allergy 11-25-19 09 Other: See Comments, Unknown [facility] (13 sources) hydrALAZINE; Translations: [HYDRALAZINE] Drug Allergy 05-19-[address] [facility] (3 sources) Adrenergic Beta-Antagonists Drug allergy Unknown [id number] Other (2 sources) Adrenergic Beta-Antagonists Drug allergy (disorder) 05-29-20 16 [facility] (3 sources) diazePAM Drug Allergy 05-19-20 13 [facility] (1 source) gabapentin Drug Allergy 01-23-20 19 [facility] (1 source) gabapentin Drug Allergy 05-29-20 16 [facility] (4 sources) beta-Blocking agent Drug Allergy 07-24-20 11 Itching, Other: See Comments [facility] (1 source) Neuromuscular Blocking Agents Propensity to adverse reactions to drug 05-19-20 13 [employer] NEGATED: Highlighted row has been ruled out! (1 source) Other Propensity to adverse reactions 07-29-20 13 Nausea And Vomiting [facility] [employer] Medications Current Medications Medication Drug Class(es) Dates Sig (Normalized) Sig (Original) 200 actuat albuterol 0.09 mg/actuat dry powder inhaler (13 sources) beta2-Adrenergic Agonist take 1 puff(s) by inhalation every four hours as needed albuterol sulfate (PROAIR RESPICLICK) 108 (90 Base) MCG/ACT aerosol powder inhalation Inhale 1 puff into the lungs every 4 hours as needed 0 Active albuterol HFA (P ROVENTIL HFA, VENTOLIN HFA) 90 mcg/actuation inhaler albuterol sulfate HFA 90 mcg/actuation aerosol inhaler 0 Active take 2 puff(s) by in halation every four hours as needed Albuterol Sulfate HFA 108 (90 Base) MCG/ ACT 2puff as needed Inhalation every 4 hrs Active take 2 puff(s) by in halation every four hours as needed Albuterol Sulfate HFA 108 (90 Base) MCG/ ACT 2puff as needed Inhalation every 4 hrs Active Comment on above: albuterol sulfate HF A 90 mcg/actuation aerosol inhaler amLODIPine 5 mg oral tablet (2 sources) Dihydropyridine Calcium Channel Neema End: 022 take 1 tablet by mouth once daily [...] 1 tablet Orally Once a day Active candesartan cilexetil 8 mg oral tablet (13 sources) Angiotensin 2 Receptor Neema take 1 tablet by mouth once daily candesartan (ATACAND) 8 MG tablet Take 1 tablet by mouth daily 0 Active Comment on above: Take 8 mg by mouth o nce daily. cholecalciferol 0.05 mg oral capsule (1 source) Vitamin D take 1 capsule by mouth once daily Cholecalciferol (VITAMIN D3) 50 MCG (1999) CAPS Take 1 capsule by mouth daily 0 Active cloNIDine hydrochloride 0.1 mg oral tablet (13 sources) Central alpha-2 Adrenergic Agonist take 0.5 tablet by mouth twice daily cloNIDine (CATAPRES) 0.1 MG tablet Take 0.5 tablets by mouth 2 times daily 0 Active take 1 tablet by kristen th twice daily, then take 0.2 tablet by [...] in PM furosemide 40 mg oral tablet (13 sources) Loop Diuretic Start: take 1 tablet by mouth twice daily furosemide (LASIX) 40 MG tablet TAKE 1 TABLET BY MOUTH TWICE A DAY 0 11/24/2021 Active Comment on above: Take 1 tablet by kristen th twice daily. LEVEMIR FLEXTOUCH 100 UNIT/ ML (3 sources) LEVEMIR FLEXTOUC H 100 UNIT/ ML as directed Subcutaneous 35 UNITS TWICE A DAY Active lidocaine 0.05 mg/mg medicated patch (2 sources) Antiarrhythmic, Amide Local Anesthetic Start: apply 1 dose transdermal route every twenty-four hours lidocaine (LIDODERM) 5 % Place 1 patch onto the skin every 24 hours 0 10/27/2022 Active Comment on above: Apply 1 Patch as dir ected every 24 hours. montelukast 10 mg oral tablet (13 sources) Leukotriene Receptor Antagonist Start: take 1 tablet by mouth once daily montelukast (SINGULAIR) 10 MG tablet TAKE 1 TABLET BY MOUTH EVERY DAY 0 11/24/2021 Active Comment on above: Take 10 mg by mouth daily at bedtime. mupirocin 0.02 mg/mg topical ointment (1 source) RNA Synthetase Inhibitor Antibacterial Start: End: apply 22 g nasal route three times daily mupirocin (BACTROBAN) 2 % ointment Apply to affected area three times daily for 5 days. Apply to each nostril via Q-tip 22 g 0 01/25/2022 01/30/2022 Active Comment on above: Apply to affected ar ea three times daily for 5 days. Apply to each nostril via Q-tip NIFEdipine 90 mg osmotic 24 hr extended release oral tablet (13 sources) Dihydropyridine Calcium Channel Neema Start: take 1 tablet by mouth once daily NIFEdipine (PROCARDIA XL) 90 MG extended release tablet TAKE 1 TABLET BY MOUTH EVERY DAY 0 01/13/2022 Active take 1 tablet by kristen th every twenty-four hours NIFEdipine ER 90 MG 1 tablet on an empty stomach Orally Once a day Active Comment on above: nifedipine ER 90 mg tablet,extended release 24 hr take 1 tablet by mouth once daily 24 hr oxybutynin chloride 10 mg extended release oral tablet (13 sources) Cholinergic Muscarinic Antagonist Start: 11-24-19 take 1 tablet by mouth once daily oxybutynin (DITROPAN-XL) 10 MG extended release tablet TAKE 1 TABLET BY MOUTH EVERY DAY 0 11/24/2021 Active Comment on above: Take 10 mg by mouth once daily. pantoprazole 40 mg delayed release oral tablet (13 sources) Proton Pump Inhibitor Start: 11-29-19 take 1 tablet by mouth once daily pantoprazole (PROTONIX) 40 MG tablet TAKE 1 TABLET BY MOUTH EVERY DAY 0 11/29/2021 Active Comment on above: Take 40 mg by mouth once daily. potassium chloride 20 meq extended release oral tablet (13 sources) Start: 11-24-19 take 1 tablet by mouth once daily potassium chloride (KLOR-CON M) 20 MEQ TBCR extended release tablet Take 1 tablet by mouth daily 0 11/24/2021 Active Start: 11-08-2019 take 1 tablet by kristen th once daily potassium chloride ER (KLOR-CON M20) 20 mEq tablet Take 1 tablet by mouth once daily. 0 11/08/2019 Active take 1 tablet by kristen th every twelve hours Potassium Chloride ER 20 MEQ 1 tablet with food Orally Twice a day Active Comment on above: Take 1 tablet by kristen th once daily. spironolactone 100 mg oral tablet (2 sources) Aldosterone Antagonist End: take 1 tablet by mouth once daily spironolactone (ALDACTONE) 100 mg tablet spironolactone 100 mg tablet take 1 tablet by mouth once daily for 4 days 0 01/21/2022 Discontinued Comment on above: spironolactone 100 m g tablet take 1 tablet by mouth once daily for 4 days topiramate 50 mg oral tablet (13 sources) Start: 015 take 2 tablets by mouth twice daily, then take 2 tablets by mouth twice daily topiramate (TOPAMAX) 50 MG tablet Indications: Medication refill Take 2 tablets by mouth 2 times daily take 2 tablets by mouth twice a day 120 tablet 3 08/15/2015 Active Comment on above: Take 100 mg by mouth twice daily. traMADol hydrochloride 50 mg oral tablet (13 sources) Opioid Agonist Start: 016 take 1 tablet by mouth every six hours as needed for pain traMADol (ULTRAM) 50 MG tablet Take 1 tablet by mouth every 6 hours as needed for Pain 120 tablet 0 05/16/2016 Active take 2 tablets by mouth twice da faheem traMADol (ULTRAM) 50 mg tablet tramadol 50 mg tablet take 2 tablets by mouth twice a day 0 Active Comment on above: tramadol 50 mg table t take 2 tablets by mouth twice a day Completed/Discontinued Medications Medication Drug Class(es) Dates Sig (Normalized) Sig (Original) acetaminophen 325 mg / HYDROcodone bitartrate 5 mg oral tablet (3 sources) Opioid Agonist Start: 01-30-2022 take 1 tablet by mouth every eight hours as needed for pain HYDROcodone-acetam inophen (NORCO) 5-325 mg per tablet Indications: Post-op pain Take 1 tablet by mouth every 8 hours as needed for pain. 9 tablet 0 01/30/2022 Active Comment on above: Take 1 tablet by kristen th every 8 hours as needed for pain. ALOE VERA ORAL (9 sources) ALOE VERA ORAL Take by mouth. 0 Active Comment on above: Take by mouth. atorvastatin 10 mg oral tablet (13 sources) HMG-CoA Reductase Inhibitor Start: 11-08-2019 take 1 tablet by mouth once daily atorvastatin (LIPITOR) 10 mg tablet Take 1 tablet by mouth once daily. 90 tablet 1 11/08/2019 Active Start: 09-26-2015 take 1 tablet by kristen th once daily atorvastatin (LIPITOR) 40 MG tablet Take 1 tablet by mouth daily 90 tablet 3 09/26/2015 Active Comment on above: Take 1 tablet by kristen th once daily. carbidopa 10 mg / levodopa 100 mg oral tablet (6 sources) Aromatic Amino Acid Decarboxylation Inhibitor, Aromatic Amino Acid carbidopa-levodopa (SINEMET 10-100) 10-100 mg per tablet carbidopa 10 mg-levodopa 100 mg tablet 0 Active Comment on above: carbidopa 10 mg-levo dopa 100 mg tablet cephalexin 500 mg oral capsule (3 sources) Cephalosporin Antibacterial Start: 01-31-20 take 1 capsule by mouth four times daily cephALEXin (KEFLEX) 500 mg capsule Take 1 capsule by mouth four times daily. 8 capsule 0 01/30/2022 Active Comment on above: Take 1 capsule by [facility] four times daily. cetirizine hydrochloride 10 mg oral tablet (5 sources) Histamine-1 Receptor Antagonist Start: 04-01-20 take 1 tablet by mouth once daily cetirizine (ZYRTEC) 10 mg tablet Take 1 tablet by mouth once daily. 0 04/01/2023 Active Comment on above: Take 1 tablet by [facility] once daily. empagliflozin 10 mg oral tablet (2 sources) Sodium-Glucose Cotransporter 2 Inhibitor Start: 08-28-20 take 1 tablet by mouth once JARDIANCE 10 mg tablet Take 1 tablet by mouth every afternoon. 0 08/28/2023 Active Start: 03-05-2023 JARDIANCE 10 M G tablet 1 tablet 0 03/05/2023 Active Comment on above: Take 1 tablet by [facility] every afternoon. hyoscyamine sulfate 0.125 mg sublingual tablet (3 sources) take 1 tablet under the tongue four times daily as needed Hyoscyamine Sulfate SL 0.125 MG 1 tablet under the tongue and allow to dissolve as needed Sublingual FOUR TIMES A DAY PRN Not-Taking indomethacin 50 mg oral capsule (8 sources) Nonsteroidal Anti-inflammatory Drug Start: 05-12-20 take 1 capsule by mouth three times daily as needed for pain indomethacin (INDOCIN) 50 mg capsule TAKE 1 CAPSULE BY MOUTH THREE TIMES A DAY NEEDED FOR PAIN WITH FOOD OR MILK 30 0 10/27/2023 Active take 1 capsule by [facility] three times daily for pain indomethacin (INDOCIN) 50 mg capsule indomethacin 50 mg capsule take 1 capsule by mouth three times a day if needed for pain 0 Active Comment on above: indomethacin 50 mg c apsule take 1 capsule by mouth three times a day if needed for pain TAKE 1 CAPSULE BY MO [facility] THREE TIMES A DAY NEEDED FOR PAIN WITH FOOD OR MILK 30 3 ml insulin degludec 100 unt/ml pen injector (2 sources) Insulin Analog Start: 11-05-2023 TRESIBA FLEXTOUCH U-100 100 unit/mL (3 mL) injection pen Insulin Degludec (TRESIBA FLEXTOUCH) 200 UNIT/ML SOPN Inject 40 Units into the skin in the morning and at bedtime 0 Active 3 ml insulin detemir 100 unt/ml pen [...] Not-Taking metFORMIN hydrochloride 500 mg oral tablet (2 sources) Biguanide Start: 023 take 1 tablet by mouth twice daily metFORMIN (GLUCOPHAGE) 500 mg tablet Take 1 tablet by mouth two times a day. 0 04/01/2023 Active Comment on above: Take 1 tablet by kristen two times a day. tiotropium 0.018 mg inhalation powder (12 sources) [...] HandiHa ler 18 mcg and inhalation capsules 7 actuat umeclidinium 0.0625 mg/actuat dry powder inhaler (7 sources) Anticholinergic Start: 11-05-2023 INCRUSE ELLIPTA 62.5 mcg/actuation inhaler take 1 puff(s) by inhalation onc e daily umeclidinium (INCRUSE ELLIPTA) 62.5 mcg/actuation inhaler Inhale 1 Puff as instructed once daily. 0 Active Comment on above: Inhale 1 Puff as ins tructed once daily. warfarin sodium 10 mg oral tablet (19 sources) Vitamin K Antagonist Start: 10-20-2018 warfarin (COUMADIN) 10 mg tablet Take 1 tablet by mouth every 48 hours. Take 7.5mg one day, then 10mg the other day 0 10/20/2018 Active Start: 10-19-2018 warfarin (COUM ENZO) 7.5 mg tablet Take 1 tablet by mouth every 48 hours. Take 7.5mg one day, then 10mg the other day 0 10/19/2018 Active warfarin (COUMAD IN) 5 MG tablet Take 1 tablet by mouth 0 Active take 2 tablets by mo uth once daily Warfarin 5mg 5 mg 2 TABLETS orally ONCE A DAY Active Comment on above: Take 1 tablet by kristen every 48 hours. Take 7.5mg one day, then 10mg the other day Problems Active Problems Problem Classification Problem Date Documented Da te Episodic/Chronic Abdominal hernia (1 source) Unspecified abdominal hernia without obstruction or gangrene; Translations: [Hernia of unspecified site without mention of obstruction or gangrene] 12-01-2014 Episodic Abdominal pain (4 sources) Unspecified abdominal pain; Translations: [UNSPECIFIED ABDOMINAL PAIN] Onset: 3 Episodic Acute cerebrovascular disease (3 sources) Stroke of uncertain pathology; Translations: [Cerebral infarction due to embolism of unspecified cerebral artery] Onset: 3 Chronic Asthma (1 source) Asthma; Translations: [Unspecified asthma, uncomplicated] 12-01-2014 Chronic Cardiac and circulatory congenital anomalies (1 source) Congenital heart disease; Translations: [Congenital malformation of heart, unspecified] 12-01-2014 Chronic Chronic kidney disease (12 sources) Chronic kidney disease stage 3; Translations: [Stage 3 chronic kidney disease, unspecified whether stage 3a or 3b CKD (HCC)] Onset: 4 Chronic Chronic kidney disease (5 sources) Chronic kidney disease; Translations: [Chronic kidney disease, stage 3 unspecified] Onset: 2 Resolved: 2 Chronic obstructive pulmonary disease and bronchiectasis (11 sources) Chronic obstructive lung disease; Translations: [Chronic obstructive pulmonary disease, unspecified] Onset: 4 Chronic Congestive heart failure; nonhypertensive (18 sources) Congestive heart failure; Translations: [Heart failure, unspecified] Onset: 2 Chronic Coronary atherosclerosis and other heart disease (2 sources) Angina pectoris, unspecified; Translations: [Angina pectoris, unspecified] Onset: 3 Chronic Diabetes mellitus with complications (10 sources) Type 2 diabetes mellitus; Translations: [Type 2 diabetes mellitus with other specified complication] Onset: 4 Resolved: 2 Chronic Diabetes mellitus without complication (10 sources) Diabetes mellitus; Translations: [Type 2 diabetes mellitus without complications] 11-25-2008 Chronic Disorders of lipid metabolism (5 sources) Pure hypercholesterolemia; Translations: [Pure hypercholesterolemia, unspecified] Onset: 2 Resolved: 2 Chronic Esophageal disorders (11 sources) Gastroesophageal reflux disease; Translations: [Gastro-esophageal reflux disease without esophagitis] 11-25-2008 Chronic Essential hypertension (17 sources) Essential hypertension; Translations: [Essential (primary) hypertension] Onset: 4 Resolved: 2 07-18-2016 Chronic Gout and other crystal arthropathies (1 source) Gout; Translations: [Gout, unspecified] 12-01-2014 Chronic Hypertension with complications and secondary hypertension (4 sources) Hypertensive chronic kidney disease with stage 1 through stage 4 chronic kidney disease, or unspecified chronic kidney disease; Translations: [HTN CKD W/STAGE 1-4 CKD/UNS CKD] Onset: 2 Chronic Mood disorders (10 sources) Recurrent major depression in partial remission; Translations: [Major depressive disorder, recurrent, in partial remission] Onset: 0 11-16-2019 Chronic Osteoarthritis (2 sources) Bilateral osteoarthritis of knees; Translations: [Bilateral primary osteoarthritis of knee] Onset: 4 08-18-2014 Chronic Other aftercare (5 sources) Encounter for therapeutic drug level monitoring; Translations: [ENC THERAPEUTC DRUG LEVL MONITORING] Onset: 3 Episodic Other aftercare (1 source) flag signaler (current) use of anticoagulants; Translations: [GROUP HOME CURRNT USE ANTICOAGULANTS] Onset: 3 Episodic Other and ill-defined cerebrovascular disease (10 sources) Cerebrovascular disease; Translations: [Other cerebrovascular disease] 11-25-2008 Chronic Other diseases of kidney and ureters (1 source) Kidney disease; Translations: [Disorder of kidney and ureter, unspecified] 12-01-2014 Episodic Other gastrointestinal disorders (1 source) Irritable bowel syndrome; Translations: [Irritable bowel syndrome without diarrhea] 03-28-2014 Chronic Other hereditary and degenerative nervous system [...] Chronic Other nervous system disorders (1 source) Patient encounter status; Translations: [Other chronic pain] 01-20-2015 Chronic Other nervous system disorders (10 sources) Tremor; Translations: [Tremor, unspecified] Onset: 1 07-24-2011 Episodic Other nervous system disorders (1 source) Other abnormalities of gait and mobility; Translations: [Other abnormalities of gait and mobility] Onset: 4 Episodic Other nutritional; endocrine; and metabolic disorders (11 sources) Body mass index 40+ - severely obese; Translations: [Morbid (severe) obesity due to excess calories] Onset: 9 10-09-2018 Chronic Other nutritional; endocrine; and metabolic disorders (3 sources) Morbid obesity; Translations: [Morbid (severe) obesity due to excess calories] Onset: 4 08-18-2014 Chronic Other nutritional; endocrine; and metabolic disorders (1 source) Obesity; Translations: [Obesity, unspecified] 03-28-2014 Chronic Other upper respiratory disease (1 source) Tracheostomy present; Translations: [Tracheostomy status] Onset: 1 03-28-2014 Chronic Other upper respiratory disease (9 sources) Other diseases of pharynx; Translations: [Other diseases of pharynx, not elsewhere classified] 11-25-2008 Episodic Parkinson`s disease (10 sources) Parkinson's disease; Translations: [Parkinson's disease] Onset: 5 01-21-2022 Chronic Phlebitis; thrombophlebitis and thromboembolism (9 sources) 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; Translations: [Chronic embolism and thrombosis of unspecified deep veins of proximal lower extremity, bilateral] Onset: 8 08-06-2018 Chronic Phlebitis; thrombophlebitis and thromboembolism (6 sources) Acute embolism and thrombosis of unspecified deep veins of left lower extremity; Translations: [H/O: Deep vein thrombosis] Onset: 3 Episodic Residual codes; unclassified (11 sources) Obstructive sleep apnea syndrome; Translations: [Obstructive sleep apnea (adult) (pediatric)] Onset: 4 Chronic Residual codes; unclassified (1 source) Pain, unspecified; Translations: [Pain, unspecified] Onset: 4 Episodic Residual codes; unclassified (1 source) Other specified personal risk factors, not elsewhere classified; Translations: [Other specified personal history presenting hazards to health] 12-01-2014 Episodic Spondylosis; intervertebral disc disorders; other back problems (5 sources) Degeneration of lumbar intervertebral disc; Translations: [Other intervertebral disc degeneration, lumbar region] Onset: 4 Resolved: 0 08-18-2014 Chronic Unclassified (1 source) LOW BACK PAIN, UNSPECIFIED; Translations: [LOW BACK PAIN, UNSPECIFIED] Onset: 3 Unclassified (1 source) CONTACT W/AND (SUSP) EXPOS COVID-19; Translations: [CONTACT W/AND (SUSP) EXPOS COVID-19] Onset: 2 Unclassified (1 source) CHRN KIDNEY DISEASE STG 3 UNSP; Translations: [CHRN KIDNEY DISEASE STG 3 UNSP] Onset: 2 Unclassified (2 sources) Wound Check; Translations: [Wound Check] Onset: 3 Unclassified (1 source) Intentional weight loss; Translations: [Weight loss, intentional] Onset: 5 05-15-2015 Past or Other Problems Problem Classification Problem Date Documented Da te Episodic/Chronic Acute and unspecified renal failure (1 source) Acute renal failure syndrome; Translations: [Acute kidney failure, unspecified] Onset: 03-15-2014 Episodic Fluid and electrolyte disorders (10 sources) Hypervolemia; Translations: [Fluid overload, unspecified] Onset: 03-15-2014 10-08-2018 Episodic Immunizations and screening for infectious disease (2 sources) 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; Translations: [Carrier or suspected carrier of Methicillin resistant Staphylococcus aureus] Onset: 07-18-2015 Episodic Malaise and fatigue (5 sources) Other fatigue; Translations: [Asthenia] Onset: 03-15-2014 11-06-2023 Episodic Nonspecific chest pain (1 source) Chest pain, unspecified; Translations: [CHEST PAIN UNSPECIFIED] Onset: 05-27-2022 Episodic Other aftercare (1 source) Patient encounter status; Translations: [Encounter for therapeutic drug level monitoring] Onset: 01-25-2014 08-18-2014 Episodic Other circulatory disease (4 sources) Personal history of transient ischemic attack (TIA), and cerebral infarction without residual deficits; Translations: [PERS HX TIA AND CI NO RESID DEFICIT] Onset: 05-29-2022 Episodic Other connective tissue disease (1 source) Cramp; Translations: [Cramp and spasm] Onset: 03-15-2014 Episodic Other gastrointestinal disorders (1 source) Dysphagia; Translations: [Dysphagia, unspecified] Onset: 11-28-2014 11-28-2014 Episodic Other lower respiratory disease (4 sources) Other forms of dyspnea; Translations: [OTHER FORMS OF DYSPNEA] Onset: 06-24-2022 Episodic Other lower respiratory disease (1 source) Dyspnea, unspecified; Translations: [DYSPNEA UNSPECIFIED] Onset: 05-27-2022 Episodic Other nervous system disorders (1 source) Pill rolling; Translations: [Tremor, unspecified] Onset: 03-15-2014 Episodic Other upper respiratory disease (10 sources) [...] finding; Translations: [Tobacco use] Onset: 01-21-2022 Episodic Residual codes; unclassified (1 source) Bilateral lower limb edema; Translations: [Localized edema] Onset: 03-31-2014 03-31-2014 Episodic Spondylosis; intervertebral disc disorders; other back problems (11 sources) Low back pain; Translations: [Lumbago] Onset: 01-25-2014 11-25-2008 Episodic Syncope (2 sources) Syncope and collapse; Translations: [Syncope and collapse] Onset: 01-07-2023 Episodic Results Test Name Value Interpretation Reference Range Facility CNOVon 11-06-2023 CNOV Office Visit (NENMMN ) GABBYANDRY ([id number]) 1960 M Date Time Provider Department 11/06/23 10:30 AM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 15.5 g/dL Normal 14.0-18.0 [facility] Comment on above: Performed By: #### A 1C #### [facility] [address] [place] [address] Dr. Miah Buck IG # 0.03 10e3/ul Normal 0.00-0.03 [facility] Comment on above: Performed By: #### A 1C #### [facility] [address] [place] [address] Dr. Miah Buck IG % 0.4 % Normal 0.0-0.5 [facility] Comment on above: Performed By: #### A 1C #### [facility] [address] [place] [address] Dr. Miah Buck LYMPH # 2.0 103/ul Normal 1.2-3.8 [facility] Comment on above: Performed By: #### A 1C #### [facility] [address] [place] [address] Dr. Miah Buck Lymphocytes/100 WBC (Bld) 28.1 % Normal 20.5-60.0 [facility] Comment on above: Performed By: #### A 1C #### [facility] [address] [place] [address] Dr. Miah Buck MANUAL DIFF REQ NO Normal [facility] Comment on above: Performed By: #### A 1C #### [facility] [address] [place] [address] Dr. Miah Buck MCH (RBC) [Entitic mass] 31.8 pg Normal 25.9-34.0 [facility] Comment on above: Performed By: #### A 1C #### [facility] [address] [place] [address] Dr. Miah Buck MCHC (RBC) [Mass/Vol] 33.6 g/dL Normal 29.9-35.2 [facility] Comment on above: Performed By: #### A 1C #### [facility] [address] [place] [address] Dr. Miah Buck MCV (RBC) [Entitic vol] 94.7 fL Critically high 80.0-94.0 [facility] Comment on above: Performed By: #### A 1C #### [facility] [address] [place] [address] Dr. Miah Buck MONO # 0.5 103/ul Normal 0.3-0.8 [facility] Comment on above: Performed By: #### A 1C #### [facility] [address] [place] [address] Dr. Miah Buck Monocytes/100 WBC (Bld) 7.1 % Normal 1.7-12.0 [facility] Comment on above: Performed By: #### A 1C #### [facility] [address] [place] [address] Dr. Miah Buck NEUT # 4.3 103/ul Normal 1.4-6.5 [facility] Comment on above: Performed By: #### A 1C #### [facility] [address] [place] [address] Dr. Miah Buck Neutrophils/100 WBC (Bld) 59.7 % Normal 43.0-75.0 [facility] Comment on above: Performed By: #### A 1C #### [facility] [address] [address] [address] Miah Buck Platelet mean volume (Bld) [Entitic vol] 10.6 fL Normal 9.5-13.5 [facility] Comment on above: Performed By: #### A 1C #### [facility] [address] [address] [address] Miah Buck PLT 209 103/ul Normal 150-450 [facility] Comment on above: Performed By: #### A 1C #### [facility] [address] [address] [address] Miah Buck RBC 4.87 106/ul Normal 4.70-6.10 [facility] Comment on above: Performed By: #### A 1C #### [facility] [address] [address] [address] Miah Buck WBC 7.2 103/ul Normal 4.0-11.0 [facility] Comment on above: Performed By: #### A 1C #### [facility] [address] [address] [address] Miah Buck CRPon 05-23-2022 CRP 1.0 mg/dL Normal <=1.0 [facility] Comment on above: Performed By: #### M G, CMP, BNP, TSH, CRP #### [facility] [address] [address] [address] Miah Buck ECHOCARDIO M/2D COMPLETEon 0 05-23-2022 ECHOCARDIO M/2D COMPLETE Patient: ANDRY PIERRE Exam Date: 05/23/2022 : 1960 Gender:M Ordering : SOFYA HIDALGO [facility] Admission #: [id number] Family : DR LUIS MCCORMICK . Order #: [id number] CLICK HERE TO VIEW EXAM ECHOCARDIOGRAM REPORT [...] M.D. on 05/23/2022 at 18:40 Normal [facility] MAGNESIUMon 05-23-2022 Magnesium [Mass/Vol] 2.3 mg/dL Normal 1.8-2.4 [facility] Comment on above: Performed By: #### M G, CMP, BNP, TSH, CRP #### [facility] [address] [place] [address] Dr. Miah Buck PROF 14(COMP METB)on 022 Albumin [Mass/Vol] 3.6 g/dL Normal 3.4-5.0 [facility] Comment on above: Performed By: #### M G, CMP, BNP, TSH, CRP #### [facility] [address] [address] [address] Miah Buck Albumin/Globulin [Mass ratio] 0.9 {ratio} Normal [facility] Comment on above: Performed By: #### M G, CMP, BNP, TSH, CRP #### [facility] [address] [address] [address] Miah Buck ALP [Catalytic activity/Vol] 113 U/L Normal 46-116 [facility] Comment on above: Performed By: #### M G, CMP, BNP, TSH, CRP #### [facility] [address] [address] [address] Miah Buck ALT [Catalytic activity/Vol] 34 U/L Normal 16-63 [facility] Comment on above: Performed By: #### M G, CMP, BNP, TSH, CRP #### [facility] [address] [place] [address] Dr. Miah Buck Anion gap [Moles/Vol] 10.7 mmol/L Normal [facility] Comment on above: Performed By: #### M G, CMP, BNP, TSH, CRP #### [facility] [address] [address] [address] Miah Buck AST [Catalytic activity/Vol] 23 U/L Normal 15-37 [facility] Comment on above: Performed By: #### M G, CMP, BNP, TSH, CRP #### [facility] [address] [address] [address] Miah Buck Bilirubin [Mass/Vol] 0.3 mg/dL Normal 0.2-1.0 [facility] Comment on above: Performed By: #### M G, CMP, BNP, TSH, CRP #### [facility] [address] [address] [address] Miah Buck Calcium [Mass/Vol] 8.9 mg/dL Normal 8.5-10.1 [facility] Comment on above: Performed By: #### M G, CMP, BNP, TSH, CRP #### [facility] [address] [address] [address] Miah Buck Chloride [Moles/Vol] 105 mmol/L Normal 98-107 [facility] Comment on above: Performed By: #### M G, CMP, BNP, TSH, CRP #### [facility] [address] [address] [address] Miah Buck CO2 [Moles/Vol] 26.5 mmol/L Normal 21.0-32.0 [facility] Comment on above: Performed By: #### M G, CMP, BNP, TSH, CRP #### [facility] [address] [address] [address] Miah Buck Creatinine [Mass/Vol] 1.73 mg/dL Critically high 0.70-1.30 [facility] Comment on above: Performed By: #### M G, CMP, BNP, TSH, CRP #### [facility] [address] [place] [address] Dr. Miah Buck EGFR-AF IRISH 49 mL/min/1.73m2 Critically low >=60 [facility] Comment on above: Performed By: #### M G, CMP, BNP, TSH, CRP #### [facility] [address] [place] [address] Dr. Miah Buck EGFR-NON AF IRISH 40 mL/min/1.73m2 Critically low >=60 [facility] Comment on above: Performed By: #### M G, CMP, BNP, TSH, CRP #### [facility] [address] [place] [address] Dr. Miah Buck Globulin (S) [Mass/Vol] 4.0 g/dL Normal [facility] Comment on above: Performed By: #### M G, CMP, BNP, TSH, CRP #### [facility] [address] [place] [address] Dr. Miah Buck Glucose [Mass/Vol] 285 mg/dL Critically high 74-106 [facility] Comment on above: Performed By: #### M G, CMP, BNP, TSH, CRP #### [facility] [address] [place] [address] Dr. Miah Buck Potassium [Moles/Vol] 4.2 mmol/L Normal 3.5-5.1 [facility] Comment on above: Performed By: #### M G, CMP, BNP, TSH, CRP #### [facility] [address] [address] [address] Miah Buck Protein [Mass/Vol] 7.6 g/dL Normal 6.4-8.2 [facility] Comment on above: Performed By: #### M G, CMP, BNP, TSH, CRP #### [facility] [address] [place] [address] Dr. Miah Buck Sodium [Moles/Vol] 138 mmol/L Normal 136-145 [facility] Comment on above: Performed By: #### M G, CMP, BNP, TSH, CRP #### [facility] [address] [place] [address] Dr. Miah Buck Urea nitrogen [Mass/Vol] 23.0 mg/dL Critically high 7.0-18.0 [facility] Comment on above: Performed By: #### M G, CMP, BNP, TSH, CRP #### [facility] [address] [place] [address] Dr. Miah Buck Urea nitrogen/Creatinin e [Mass ratio] 13.3 mg/mg Normal [facility] Comment on above: Performed By: #### M G, CMP, BNP, TSH, CRP #### [facility] [address] [place] [address] Dr. Miah Buck TSHon 05-23-2022 TSH 0.714 uIU/mL Normal 0.358-3.740 [facility] Comment on above: Performed By: #### M G, CMP, BNP, TSH, CRP #### [facility] [address] [place] [address] Dr. Miah Buck VITAMIN B12on 05-23-2022 Cobalamin (Vitamin B12) [Mass/Vol] 930.0 pg/mL Normal 193.0-986.0 [facility] Comment on above: Performed By: #### V ITB12 #### [facility] [address] [place] [address] Dr. Miah Buck BASIC METABOLIC PANELon 07-07 Calcium [Mass/Vol] 8.3 mg/dL Low 8.6-10.3 [facility] Comment on above: Order Comment: No: D o not add to previous draw Performed By: #### 1 0070, 55432, 56316, 84683 #### [facility] [address] [place] [address], [place] Chloride [Moles/Vol] 105 mmol/L Normal 98-107 [facility] Comment on above: Order Comment: No: D o not add to previous draw Performed By: #### 1 0070, 48259, 00670, 54675 #### [facility] [address] [place] [address], [place] CO2 [Moles/Vol] 22 mmol/L Normal 21-31 [facility] Comment on above: Order Comment: No: D o not add to previous draw Performed By: #### 1 0070, 43183, 69641, 41124 #### [facility] [address] [place] [address], [place] Creatinine [Mass/Vol] 1.31 mg/dL High 0.70-1.30 [facility] Comment on above: Order Comment: No: D o not add to previous draw Performed By: #### 1 0070, 82139, 83582, 45477 #### [facility] [address] [place] [address], [place] eGFR- non- 56 ml/min/1.73sq m Abnormal >60 [facility] Comment on above: Order Comment: No: D o not add to previous draw Performed By: #### 1 0070, 14063, 07613, 13089 #### [facility] [address] [place] [address], [place] GFR/1.73 sq M.predicted among blacks MDRD (S/P/Bld) [Vol rate/Area] mL/min/{1.73_m2} Normal >60 [facility] Comment on above: Order Comment: No: D o not add to previous draw Performed By: #### 1 0070, 34768, 52246, 32676 #### [facility] [address] [place] [address], [facility] Glucose [Mass/Vol] 231 mg/dL High 70-100 [facility] Comment on above: Order Comment: No: D o not add to previous draw Performed By: #### 1 0070, 72227, 05313, 45055 #### [facility] [address] [facility] [place] [address], [facility] Potassium [Moles/Vol] 3.6 mmol/L Normal 3.5-5.1 [facility] Comment on above: Order Comment: No: D o not add to previous draw Performed By: #### 1 0070, 08086, 39810, 85355 #### [facility] [address] [place] [address], [facility] Sodium [Moles/Vol] 139 mmol/L Normal 136-145 [facility] Comment on above: Order Comment: No: D o not add to previous draw Performed By: #### 1 0070, 53324, 32085, 07344 #### [facility] [address] [facility]. [address] Urea nitrogen [Mass/Vol] 17 mg/dL Normal 7-25 [facility] Comment on above: Order Comment: No: D o not add to previous draw Performed By: #### 1 0070, 91671, 44949, 78565 #### [facility] [address] [facility] [place] [address], [facility] CBC W/DIFFon 07-27-2021 ABS IMM GRANS 0.1 10*3/uL Normal 0.0-0.2 [facility] Comment on above: Performed By: #### 1 0070, 27594, 80283, 50668 #### [facility] [address] [place] [address], [facility] ABS NEUTROPHILS 10.2 10*3/uL High 1.6-7.6 [facility] Comment on above: Performed By: #### 1 0070, 61314, 41915, 72002 #### [facility] [address] [place] [address], [facility] Basophils (Bld) [#/Vol] 0.0 10*3/uL Normal 0.0-0.2 [facility] Comment on above: Performed By: #### 1 0070, 89735, 47270, 43937 #### [facility] [address] [place] [address], [facility] Basophils/100 WBC (Bld) 0.3 % Normal 0.0-1.0 [facility] Comment on above: Performed By: #### 1 0070, 01492, 80056, 10525 #### [facility] [address] [facility] [place] [address], [facility] Eosinophils (Bld) [#/Vol] 0.0 10*3/uL Normal 0.0-0.5 [facility] Comment on above: Performed By: #### 1 0070, 33601, 32930, 80708 #### [facility] [address] [facility] [place] [address], [facility] Eosinophils/100 WBC (Bld) 0.0 % Normal 0.0-6.0 [facility] Comment on above: Performed By: #### 1 0, 36367, 00542, 70107 #### [facility] [address] [facility] [place] [address], [facility] Erythrocyte distribution width (RBC) [Ratio] 13.2 % Normal 11.5-15.0 [facility] Comment on above: Performed By: #### 1 0070, 49390, 47305, 50514 #### [facility] [address] [facility] [place] [id number], [facility] Hematocrit (Bld) [Volume fraction] 44.2 % Normal 39.0-50.0 [facility] Comment on above: Performed By: #### 1 0070, 55769, 03941, 82187 #### [facility] [address] [facility] [place] [address], [facility] Hemoglobin (Bld) [Mass/Vol] 14.9 g/dL Normal 13.0-17.0 [facility] Comment on above: Performed By: #### 1 0070, 05170, 03750, 84628 #### [facility] [address] [facility] [place] [address], [facility] IMMATURE GRANS 0.7 % Normal 0.0-1.0 [facility] Comment on above: Performed By: #### 1 0070, 23240, 27881, 21745 #### [facility] [address] [facility] [place] [address], [facility] Lymphocytes (Bld) [#/Vol] 1.0 10*3/uL Low 1.2-4.0 [facility] Comment on above: Performed By: #### 1 0070, 69823, 24736, 16899 #### [facility] [address] Lymphocytes/100 WBC (Bld) 8.2 % Low 20.0-45.0 [facility] Comment on above: Performed By: #### 1 0070, 02602, 87106, 58356 #### [facility] [address] [facility] [place] [address], [facility] MCH (RBC) [Entitic mass] 31.2 pg Normal 27.0-33.0 [facility] Comment on above: Performed By: #### 1 0070, 23471, 11273, 07318 #### [facility] [address] [facility] [place] [address], [facility] MCHC (RBC) [Mass/Vol] 33.7 g/dL Normal 32.0-35.0 [facility] Comment on above: Performed By: #### 1 0070, 33339, 75609, 97928 #### [facility] [address] [facility] [place] [address], [facility] MCV (RBC) [Entitic vol] 92.7 fL Normal 82.0-98.0 [facility] Comment on above: Performed By: #### 1 0070, 89184, 40104, 10028 #### [facility] [address] [facility] [place] [place] [address], [facility] Monocytes (Bld) [#/Vol] 0.9 10*3/uL Normal 0.1-1.0 [facility] Comment on above: Performed By: #### 1 0070, 22286, 87205, 85720 #### [facility] [address] [place] [address], [facility] MONOS 7.0 % Normal 5.0-12.0 [facility] Comment on above: Performed By: #### 1 0070, 86586, 93513, 41547 #### [facility] [address] Neutrophils/100 WBC (Bld) 83.8 % High 40.0-72.0 [facility] Comment on above: Performed By: #### 1 0070, 15521, 01600, 75738 #### [facility] [address] [place] [address], [facility] Nucleated RBC/100 WBC (Bld) [Ratio] 0 % Normal 0-0 [facility] Comment on above: Performed By: #### 1 0070, 17758, 43714, 30298 #### [facility] [address] [place] [address], [facility] PLAT CNT 198 10*3/uL Normal 150-400 [facility] Comment on above: Performed By: #### 1 0070, 02012, 32912, 20564 #### [facility] [address] [place] [address], [facility] RBC (Bld) [#/Vol] 4.77 10*6/uL Normal 4.20-5.70 [facility] Comment on above: Performed By: #### 1 0070, 16671, 64052, 76633 #### [facility] [address] [place] [address], [facility] WBC (Bld) [#/Vol] 12.15 10*3/uL High 4.00-10.60 [facility] Comment on above: Performed By: #### 1 0070, 01251, 16287, 59457 #### [facility] [address] [place] [address], [facility] LIVER BATTERYon 07-27-2021 Albumin [Mass/Vol] 3.3 g/dL Low 3.5-5.7 [facility] Comment on above: Order Comment: No: D o not add to previous draw Performed By: #### 1 0070, 69997, 87164, 27439 #### [facility] [address] [place] [address], [facility] ALKALINE PHOSPH 124 IU/L High 34-104 [facility] Comment on above: Order Comment: No: D o not add to previous draw Performed By: #### 1 0070, 00977, 10270, 07365 #### [facility] [address] [place] [address], [place] ALT [Catalytic activity/Vol] 58 U/L High 7-52 [facility] Comment on above: Order Comment: No: D o not add to previous draw Performed By: #### 1 0070, 73924, 24733, 65371 #### [facility] [address] [place] [address], [place] AST [Catalytic activity/Vol] 48 U/L High 13-39 [facility] Comment on above: Order Comment: No: D o not add to previous draw Performed By: #### 1 0070, 96263, 02487, 16534 #### [facility] [address] [place] [address], [place] Bilirubin [Mass/Vol] 0.8 mg/dL Normal 0.3-1.0 [facility] Comment on above: Order Comment: No: D o not add to previous draw Performed By: #### 1 0070, 45956, 99295, 61050 #### [facility] [address] [place] [address], [facility] Bilirubin.direct [Mass/Vol] 0.3 mg/dL High 0.0-0.2 [facility] Comment on above: Order Comment: No: D o not add to previous draw Performed By: #### 1 0070, 55635, 64123, 56941 #### [facility] [address] [place] [address], [facility] Protein [Mass/Vol] 6.2 g/dL Normal 6.0-8.3 [facility] Comment on above: Order Comment: No: D o not add to previous draw Performed By: #### 1 0070, 14530, 82903, 26114 #### [facility] [address] [place] [address], [facility] MAGNESIUM BLOODon 07-27-2021 Magnesium [Mass/Vol] 1.8 mg/dL Low 1.9-2.7 [facility] Comment on above: Order Comment: No: D o not add to previous draw Performed By: #### 1 0070, 52240, 53456, 61277 #### [facility] [address] [place] [address], [facility] PHOSPHORUS BLOODon Phosphate [Mass/Vol] 2.9 mg/dL Normal 2.5-5.0 [facility] Comment on above: Order Comment: No: D o not add to previous draw Performed By: #### 1 0070, 24276, 18591, 71937 #### [facility] [address] [place] [address], [place] POC GLUCOSE LABon 07-27-2021 Glucose [Mass/Vol] 260 mg/dL High 70-100 [facility] Comment on above: Performed By: #### 8 5499 #### [facility] [address] Glucose [Mass/Vol] 225 mg/dL High 70-100 [facility] Comment on above: Performed By: #### 1 0, 42154, 37042, 83671 #### [facility] [address] PROTHROMBIN TIMEon 1 INR Coag (PPP) [Relative time] 1.22 {INR} High 0.91-1.16 [facility] Comment on above: Order Comment: No: D [...] CHEST 1995;108:231S-246S. Performed By: #### 1 0, 08492, 64096, 90340 #### [facility] [address] [facility] [place] [address], [facility] PT Coag (PPP) [Time] 15.4 s High 12.3-14.8 [facility] Comment on above: Order Comment: No: D o not add to previous draw Result Comment: ALL RESULTS MUST BE INTERPRETED WITH RESPECT TO BLOOD DRAWING ARTIFACT OR DILUTION ERROR OF ANTICOAGULANT AT THE TIME OF SAMPLING. Performed By: #### 1 0070, 67690, 48641, 27829 #### [facility] [address] [place] [id number], [facility] BASIC METABOLIC PANELon 10-2 Calcium [Mass/Vol] 8.5 mg/dL Low 8.6-10.3 [facility] Comment on above: Order Comment: No: D o not add to previous draw Performed By: #### 8 5499 #### [facility] [address] [place] [address], [facility] Chloride [Moles/Vol] 108 mmol/L High 98-107 [facility] Comment on above: Order Comment: No: D o not add to previous draw Performed By: #### 8 5499 #### [facility] [address] [place] [address], [facility] CO2 [Moles/Vol] 24 mmol/L Normal 21-31 [facility] Comment on above: Order Comment: No: D o not add to previous draw Performed By: #### 8 5499 #### [facility] [address] [place] [address], [facility] Creatinine [Mass/Vol] 1.23 mg/dL Normal 0.70-1.30 [facility] Comment on above: Order Comment: No: D o not add to previous draw Performed By: #### 8 5499 #### [facility] [address] [place] [id number], [facility] eGFR- non- 60 ml/min/1.73sq m Abnormal >60 [facility] Comment on above: Order Comment: No: D o not add to previous draw Performed By: #### 8 5499 #### [facility] [address] [place] [address], [facility] GFR/1.73 sq M.predicted among blacks MDRD (S/P/Bld) [Vol rate/Area] mL/min/{1.73_m2} Normal >60 [facility] Comment on above: Order Comment: No: D o not add to previous draw Performed By: #### 8 5499 #### [facility] [address] [place] [address], [place] Glucose [Mass/Vol] 141 mg/dL High 70-100 [facility] Comment on above: Order Comment: No: D o not add to previous draw Performed By: #### 8 5499 #### [facility] [address] [place] [address], [place] Potassium [Moles/Vol] 3.5 mmol/L Normal 3.5-5.1 [facility] Comment on above: Order Comment: No: D o not add to previous draw Performed By: #### 8 5499 #### [facility] [address] [place] [address], [place] Sodium [Moles/Vol] 139 mmol/L Normal 136-145 [facility] Comment on above: Order Comment: No: D o not add to previous draw Performed By: #### 8 5499 #### [facility] [address] [place] [address], [place] Urea nitrogen [Mass/Vol] 18 mg/dL Normal 7-25 [facility] Comment on above: Order Comment: No: D o not add to previous draw Performed By: #### 8 5499 #### [facility] [address] [place] [address], [facility] CBC COMPLETE BLOOD COUNTon - Erythrocyte distribution width (RBC) [Ratio] 13.2 % Normal 11.5-15.0 [facility] Comment on above: Order Comment: No: D o not add to previous draw Performed By: #### 1 0070, 30170, 12428, 07208 #### [facility] [address] [place] [address], [place] Hematocrit (Bld) [Volume fraction] 42.7 % Normal 39.0-50.0 [facility] Comment on above: Order Comment: No: D o not add to previous draw Performed By: #### 1 0070, 48586, 59945, 88071 #### [facility] [address] [place] [address], [facility] Hemoglobin (Bld) [Mass/Vol] 14.5 g/dL Normal 13.0-17.0 [facility] Comment on above: Order Comment: No: D o not add to previous draw Performed By: #### 1 0070, 11246, 50517, 27151 #### [facility] [address] [facility] [place] [place] [address], [facility] MCH (RBC) [Entitic mass] 32.0 pg Normal 27.0-33.0 [facility] Comment on above: Order Comment: No: D o not add to previous draw Performed By: #### 1 0070, 35101, 77953, 86514 #### [facility] [address] [facility] [place] [place] [address], [facility] MCHC (RBC) [Mass/Vol] 34.0 g/dL Normal 32.0-35.0 [facility] Comment on above: Order Comment: No: D o not add to previous draw Performed By: #### 1 0070, 54625, 94033, 22617 #### [facility] [address] [facility] [place] [place] [address], [facility] MCV (RBC) [Entitic vol] 94.3 fL Normal 82.0-98.0 [facility] Comment on above: Order Comment: No: D o not add to previous draw Performed By: #### 1 0070, 76444, 12231, 09495 #### [facility] [address] [place] [address], [facility] Nucleated RBC/100 WBC (Bld) [Ratio] 0 % Normal 0-0 [facility] Comment on above: Order Comment: No: D o not add to previous draw Performed By: #### 1 0070, 79379, 07466, 33475 #### [facility] [address] [place] [address], [facility] PLAT CNT 179 10*3/uL Normal 150-400 [facility] Comment on above: Order Comment: No: D o not add to previous draw Performed By: #### 1 0070, 71191, 06889, 09736 #### [facility] [address] [place] [address], [facility] RBC (Bld) [#/Vol] 4.53 10*6/uL Normal 4.20-5.70 [facility] Comment on above: Order Comment: No: D o not add to previous draw Performed By: #### 1 0070, 95295, 37626, 27596 #### [facility] [address] [place] [address], [facility] WBC (Bld) [#/Vol] 7.86 10*3/uL Normal 4.00-10.60 [facility] Comment on above: Order Comment: No: D o not add to previous draw Performed By: #### 1 0070, 85555, 46931, 10541 #### [facility] [address] [place] [address], [facility] LIVER BATTERYon 07-26-2021 Albumin [Mass/Vol] 3.2 g/dL Low 3.5-5.7 [facility] Comment on above: Order Comment: No: D o not add to previous draw Performed By: #### 0 0071, 67717 #### [facility] [address] [place] [address], [facility] ALKALINE PHOSPH 114 IU/L High 34-104 [facility] Comment on above: Order Comment: No: D o not add to previous draw Performed By: #### 0 0071, 06897 #### [facility] [address] [place] [address], [place] ALT [Catalytic activity/Vol] 37 U/L Normal 7-52 [facility] Comment on above: Order Comment: No: D o not add to previous draw Performed By: #### 0 0071, 41672 #### [facility] [address] [place] [address], [facility] AST [Catalytic activity/Vol] 28 U/L Normal 13-39 [facility] Comment on above: Order Comment: No: D o not add to previous draw Performed By: #### 0 0071, 67086 #### [facility] [address] [place] [address], [place] Bilirubin [Mass/Vol] 0.6 mg/dL Normal 0.3-1.0 [facility] Comment on above: Order Comment: No: D o not add to previous draw Performed By: #### 0 0071, 01570 #### [facility] [address] [place] [address], [facility] Bilirubin.direct [Mass/Vol] 0.1 mg/dL Normal 0.0-0.2 [facility] Comment on above: Order Comment: No: D o not add to previous draw Performed By: #### 0 0071, 26949 #### [facility] [address] [place] [id number], [place] Protein [Mass/Vol] 6.3 g/dL Normal 6.0-8.3 [facility] Comment on above: Order Comment: No: D o not add to previous draw Performed By: #### 0 0071, 97582 #### [facility] [address] Operative Reporton Operative Report MR#: [id number] [facility] Pt. Name: Andry Pierre Room #: [id number] Discharge Date: Birthdate: 1960 OPERATIVE REPORT DATE [...] Olivier M.D. Date Trans: 07/26/2021 04:31 P/ BORISJN:[id number] cc: Luis Mccormick M.D. [address], [place] [facility] [id number] Normal [facility] POC GLUCOSE LABon 07-26-2021 Glucose [Mass/Vol] 155 mg/dL High 70-100 [facility] Comment on above: Performed By: #### 1 0070, 32641, 30448, 88031 #### [facility] [address] [place] [address], [facility] Glucose [Mass/Vol] 149 mg/dL High 70-100 [facility] Comment on above: Performed By: #### 8 5499 #### [facility] [address] [place] [address], [place] Glucose [Mass/Vol] 123 mg/dL High 70-100 [facility] Comment on above: Performed By: #### 1 0070, 91982, 42310, 41380 #### [facility] [address] [place] [address], [facility] Glucose [Mass/Vol] 126 mg/dL High 70-100 [facility] Comment on above: Performed By: #### 8 5499 #### [facility] [address] [facility] [place] [address], [facility] PROTHROMBIN TIMEon INR Coag (PPP) [Relative time] 1.20 {INR} High 0.91-1.16 [facility] Comment on above: Order Comment: No: D [...] CHEST 1995;108:231S-246S. Performed By: #### 1 0070, 02751, 40176, 09457 #### [facility] [address] PT Coag (PPP) [Time] 15.2 s High 12.3-14.8 [facility] Comment on above: Order Comment: No: D o not add to previous draw Result Comment: ALL RESULTS MUST BE INTERPRETED WITH RESPECT TO BLOOD DRAWING ARTIFACT OR DILUTION ERROR OF ANTICOAGULANT AT THE TIME OF SAMPLING. Performed By: #### 1 0070, 18559, 09680, 49992 #### [facility] [address] APTTon 07-25-2021 aPTT Coag (Bld) [Time] 29.3 s Normal 25.0-35.0 [facility] Comment on above: Order Comment: No: D [...] THIS PURPOSE. Performed By: #### 1 0070, 99331, 89348, 03332 #### [facility] [address] aPTT Coag (Bld) [Time] 28.7 s Normal 25.0-35.0 [facility] Comment on above: Order Comment: No: D [...] THIS PURPOSE. Performed By: #### 1 0070, 35257, 90091, 09082 #### [facility] [address] BASIC METABOLIC PANELon 10-2 0-2020 Calcium [Mass/Vol] 8.3 mg/dL Low 8.6-10.3 [facility] Comment on above: Order Comment: No: D o not add to previous draw Performed By: #### 1 0070, 35018, 70635, 22649 #### [facility] [address] [place] [address], [facility] Chloride [Moles/Vol] 111 mmol/L High 98-107 [facility] Comment on above: Order Comment: No: D o not add to previous draw Performed By: #### 1 0070, 48815, 72027, 69104 #### [facility] [address] [place] [address], [facility] CO2 [Moles/Vol] 26 mmol/L Normal 21-31 [facility] Comment on above: Order Comment: No: D o not add to previous draw Performed By: #### 1 0070, 67653, 65717, 54315 #### [facility] [address] [place] [id number], [facility] Creatinine [Mass/Vol] 1.25 mg/dL Normal 0.70-1.30 [facility] Comment on above: Order Comment: No: D o not add to previous draw Performed By: #### 1 0070, 84957, 92226, 32877 #### [facility] [address] [place] [address], [place] eGFR- non- 59 ml/min/1.73sq m Abnormal >60 [facility] Comment on above: Order Comment: No: D o not add to previous draw Performed By: #### 1 0070, 06693, 97219, 74809 #### [facility] [address] [place] [address], [place] GFR/1.73 sq M.predicted among blacks MDRD (S/P/Bld) [Vol rate/Area] mL/min/{1.73_m2} Normal >60 [facility] Comment on above: Order Comment: No: D o not add to previous draw Performed By: #### 1 0070, 04272, 05281, 68116 #### [facility] [address] [place] [address], [place] Glucose [Mass/Vol] 107 mg/dL High 70-100 [facility] Comment on above: Order Comment: No: D o not add to previous draw Performed By: #### 1 0070, 82027, 00369, 70725 #### [facility] [address] [place] [address], [place] Potassium [Moles/Vol] 3.6 mmol/L Normal 3.5-5.1 [facility] Comment on above: Order Comment: No: D o not add to previous draw Performed By: #### 1 0070, 30793, 35550, 01510 #### [facility] [address] [place] [address], [place] Sodium [Moles/Vol] 143 mmol/L Normal 136-145 [facility] Comment on above: Order Comment: No: D o not add to previous draw Performed By: #### 1 0070, 86687, 40077, 08918 #### [facility] [address] [place] [address], [place] Urea nitrogen [Mass/Vol] 22 mg/dL Normal 7-25 [facility] Comment on above: Order Comment: No: D o not add to previous draw Performed By: #### 1 0070, 94783, 19025, 48833 #### [facility] [address] [place] [address], [facility] CBC COMPLETE BLOOD COUNTon Erythrocyte distribution width (RBC) [Ratio] 13.3 % Normal 11.5-15.0 [facility] Comment on above: Order Comment: No: D o not add to previous draw Performed By: #### 1 0070, 15004, 13250, 48358 #### [facility] [address] [place] [address], [facility] Hematocrit (Bld) [Volume fraction] 46.9 % Normal 39.0-50.0 [facility] Comment on above: Order Comment: No: D o not add to previous draw Performed By: #### 1 0070, 02633, 85901, 89616 #### [facility] [address] [place] [address], [facility] Hemoglobin (Bld) [Mass/Vol] 15.4 g/dL Normal 13.0-17.0 [facility] Comment on above: Order Comment: No: D o not add to previous draw Performed By: #### 1 0070, 64229, 25442, 05959 #### [facility] [address] [place] [address], [facility] MCH (RBC) [Entitic mass] 31.3 pg Normal 27.0-33.0 [facility] Comment on above: Order Comment: No: D o not add to previous draw Performed By: #### 1 0070, 32031, 09200, 39149 #### [facility] [address] [place] [address], [facility] MCHC (RBC) [Mass/Vol] 32.8 g/dL Normal 32.0-35.0 [facility] Comment on above: Order Comment: No: D o not add to previous draw Performed By: #### 1 0070, 06388, 31450, 14447 #### [facility] [address] [place] [address], [facility] MCV (RBC) [Entitic vol] 95.3 fL Normal 82.0-98.0 [facility] Comment on above: Order Comment: No: D o not add to previous draw Performed By: #### 1 0070, 77466, 40538, 60169 #### [facility] [address] [place] [id number], [facility] Nucleated RBC/100 WBC (Bld) [Ratio] 0 % Normal 0-0 [facility] Comment on above: Order Comment: No: D o not add to previous draw Performed By: #### 1 0070, 83130, 08128, 48291 #### [facility] [address] [facility] [place] [address], [facility] PLAT CNT 183 10*3/uL Normal 150-400 [facility] Comment on above: Order Comment: No: D o not add to previous draw Performed By: #### 1 0070, 86126, 73735, 85257 #### [facility] [address] [facility] [place] [address], [facility] RBC (Bld) [#/Vol] 4.92 10*6/uL Normal 4.20-5.70 [facility] Comment on above: Order Comment: No: D o not add to previous draw Performed By: #### 1 0070, 00628, 36951, 82931 #### [facility] [address] [place] [address], [place] WBC (Bld) [#/Vol] 9.70 10*3/uL Normal 4.00-10.60 [facility] Comment on above: Order Comment: No: D o not add to previous draw Performed By: #### 1 0070, 55688, 01774, 84420 #### [facility] [address] [place] [address], [facility] LIPASE BLOODon 07-25-2021 LIPASE 34 Units/L Normal 11-82 [facility] Comment on above: Order Comment: No: D o not add to previous draw Performed By: #### 1 0070, 31208, 80237, 15941 #### [facility] [address] [place] [address], [facility] LIVER BATTERYon 07-25-2021 Albumin [Mass/Vol] 3.0 g/dL Low 3.5-5.7 [facility] Comment on above: Order Comment: No: D o not add to previous draw Performed By: #### 1 0070, 61961, 63012, 17832 #### [facility] [address] [place] [address], [facility] ALKALINE PHOSPH 113 IU/L High 34-104 [facility] Comment on above: Order Comment: No: D o not add to previous draw Performed By: #### 1 0070, 64858, 86492, 95625 #### [facility] [address] [place] [address], [place] ALT [Catalytic activity/Vol] 37 U/L Normal 7-52 [facility] Comment on above: Order Comment: No: D o not add to previous draw Performed By: #### 1 0070, 53815, 63713, 97757 #### [facility] [address] [place] [address], [facility] AST [Catalytic activity/Vol] 36 U/L Normal 13-39 [facility] Comment on above: Order Comment: No: D o not add to previous draw Performed By: #### 1 0070, 13015, 06250, 32524 #### [facility] [address] [place] [address], [place] Bilirubin [Mass/Vol] 0.6 mg/dL Normal 0.3-1.0 [facility] Comment on above: Order Comment: No: D o not add to previous draw Performed By: #### 1 0070, 72724, 46646, 55420 #### [facility] [address] [place] [address], [place] Bilirubin.direct [Mass/Vol] 0.1 mg/dL Normal 0.0-0.2 [facility] Comment on above: Order Comment: No: D o not add to previous draw Performed By: #### 1 0070, 13671, 03454, 89980 #### [facility] [address] [place] [address], [place] Protein [Mass/Vol] 5.3 g/dL Low 6.0-8.3 [facility] Comment on above: Order Comment: No: D o not add to previous draw Performed By: #### 1 0070, 07515, 31312, 98794 #### [facility] [address] [place] [address], [place] POC GLUCOSE LABon 07-25-2021 Glucose [Mass/Vol] 388 mg/dL High 70-100 [facility] Comment on above: Performed By: #### 1 0070, 29748, 45463, 17610 #### [facility] [address] [place] [address], [place] Glucose [Mass/Vol] 173 mg/dL High 70-100 [facility] Comment on above: Performed By: #### 8 5499 #### [facility] [address] [place] [address], [place] Glucose [Mass/Vol] 178 mg/dL High 70-100 [facility] Comment on above: Performed By: #### 8 5499 #### [facility] [address] [place] [address], [place] Glucose [Mass/Vol] 106 mg/dL High 70-100 [facility] Comment on above: Performed By: #### 1 0070, 71090, 86209, 62508 #### [facility] [address] [place] [address], [place] PROTHROMBIN TIMEon 1 INR Coag (PPP) [Relative time] 1.30 {INR} High 0.91-1.16 [facility] Comment on above: Order Comment: No: D [...] CHEST 1995;108:231S-246S. Performed By: #### 1 0070, 21252, 54577, 00274 #### [facility] [address] PT Coag (PPP) [Time] 16.2 s High 12.3-14.8 [facility] Comment on above: Order Comment: No: D o not add to previous draw Result Comment: ALL RESULTS MUST BE INTERPRETED WITH RESPECT TO BLOOD DRAWING ARTIFACT OR DILUTION ERROR OF ANTICOAGULANT AT THE TIME OF SAMPLING. Performed By: #### 1 0070, 79023, 16849, 71129 #### [facility] [address] UFH HEPARIN ASSAYon 07-25-20 21 UNFRACTIONATED HEPARIN <0.10 Critically low 0.30-0.70 [facility] Comment on above: Result Comment: Resu lts called. Accurately [place], 4D [place] [address], -Jul-2021. Patient is not on anything that would raise the uFH value per nurse Caitlin. Rivaroxaban and Apixaban will interfere with the anti Xa assay used to monitor UFH and LMWH. Performed By: #### 1 0070, 11730, 55284, 48023 #### [facility] [address] [place] [address], [facility] UNFRACTIONATED HEPARIN <0.10 Critically low 0.30-0.70 [facility] Comment on above: Result Comment: Resu lt checked and called. Accurately read back by Caitlin Koch RN at 1024 Rivaroxaban and Apixaban will interfere with the anti Xa assay used to monitor UFH and LMWH. Performed By: #### 1 0070, 45077, 85230, 27644 #### [facility] [address] [place] [address], [facility] BASIC METABOLIC PANELon 10-1 Calcium [Mass/Vol] 8.7 mg/dL Normal 8.6-10.3 [facility] Comment on above: Order Comment: No: D o not add to previous draw Performed By: #### 0 0071, 76055 #### [facility] [address] [place] [address], [place] Chloride [Moles/Vol] 105 mmol/L Normal 98-107 [facility] Comment on above: Order Comment: No: D o not add to previous draw Performed By: #### 0 0071, 76621 #### [facility] [address] [place] [address], [place] CO2 [Moles/Vol] 30 mmol/L Normal 21-31 [facility] Comment on above: Order Comment: No: D o not add to previous draw Performed By: #### 0 0071, 95093 #### [facility] [address] [place] [address], [place] Creatinine [Mass/Vol] 1.52 mg/dL High 0.70-1.30 [facility] Comment on above: Order Comment: No: D o not add to previous draw Performed By: #### 0 0071, 69019 #### [facility] [address] [place] [address], [place] eGFR- 57 ml/min/1.73sq m Abnormal >60 [facility] Comment on above: Order Comment: No: D o not add to previous draw Performed By: #### 0 0071, 27818 #### [facility] [address] [place] [address], [place] eGFR- non- 47 ml/min/1.73sq m Abnormal >60 [facility] Comment on above: Order Comment: No: D o not add to previous draw Performed By: #### 0 0071, 34472 #### [facility] [address] [place] [address], [place] Glucose [Mass/Vol] 331 mg/dL High 70-100 [facility] Comment on above: Order Comment: No: D o not add to previous draw Performed By: #### 0 0071, 63091 #### [facility] [address] [place] [address], [place] Potassium [Moles/Vol] 4.3 mmol/L Normal 3.5-5.1 [facility] Comment on above: Order Comment: No: D o not add to previous draw Performed By: #### 0 0071, 14954 #### [facility] [address] [place] [address], [place] Sodium [Moles/Vol] 139 mmol/L Normal 136-145 [facility] Comment on above: Order Comment: No: D o not add to previous draw Performed By: #### 0 0071, 75236 #### [facility] [address] [place] [address], [place] Urea nitrogen [Mass/Vol] 26 mg/dL High 7-25 [facility] Comment on above: Order Comment: No: D o not add to previous draw Performed By: #### 0 0071, 00060 #### [facility] [address] [place] [address], [facility] CBC COMPLETE BLOOD COUNTon Erythrocyte distribution width (RBC) [Ratio] 13.2 % Normal 11.5-15.0 [facility] Comment on above: Order Comment: No: D o not add to previous draw Performed By: #### 1 0070, 70335, 37602, 66839 #### [facility] [address] [place] [address], [facility] Hematocrit (Bld) [Volume fraction] 42.9 % Normal 39.0-50.0 [facility] Comment on above: Order Comment: No: D o not add to previous draw Performed By: #### 1 0070, 48130, 57894, 94554 #### [facility] [address] [place] [address], [facility] Hemoglobin (Bld) [Mass/Vol] 13.7 g/dL Normal 13.0-17.0 [facility] Comment on above: Order Comment: No: D o not add to previous draw Performed By: #### 1 0070, 64350, 04148, 11955 #### [facility] [address] [place] [address], [facility] MCH (RBC) [Entitic mass] 30.9 pg Normal 27.0-33.0 [facility] Comment on above: Order Comment: No: D o not add to previous draw Performed By: #### 1 0070, 63073, 12352, 97457 #### [facility] [address] [place] [address], [facility] MCHC (RBC) [Mass/Vol] 31.9 g/dL Low 32.0-35.0 [facility] Comment on above: Order Comment: No: D o not add to previous draw Performed By: #### 1 0070, 43447, 23808, 51234 #### [facility] [address] [facility] [place] [address], [facility] MCV (RBC) [Entitic vol] 96.6 fL Normal 82.0-98.0 [facility] Comment on above: Order Comment: No: D o not add to previous draw Performed By: #### 1 0070, 65722, 71067, 13357 #### [facility] [address] [facility] [place] [address], [facility] Nucleated RBC/100 WBC (Bld) [Ratio] 0 % Normal 0-0 [facility] Comment on above: Order Comment: No: D o not add to previous draw Performed By: #### 1 0070, 47555, 54273, 12169 #### [facility] [address] [place] [address], [facility] PLAT CNT 184 10*3/uL Normal 150-400 [facility] Comment on above: Order Comment: No: D o not add to previous draw Performed By: #### 1 0070, 93563, 55491, 88169 #### [facility] [address] [place] [address], [facility] RBC (Bld) [#/Vol] 4.44 10*6/uL Normal 4.20-5.70 [facility] Comment on above: Order Comment: No: D o not add to previous draw Performed By: #### 1 0070, 56617, 01973, 55842 #### [facility] [address] [facility] [place] [address], [facility] WBC (Bld) [#/Vol] 8.42 10*3/uL Normal 4.00-10.60 [facility] Comment on above: Order Comment: No: D o not add to previous draw Performed By: #### 1 0070, 74783, 50495, 06959 #### [facility] [address] [place] [address], [facility] ERCPon 07-24-2021 [facility] Department of Radiology [address] [place], [place] [id number] Patient Name: ANDRY PIERRE : 1960 Sex: M Age: Race: White Pt. Location: [id number] Patient Status: I Ordered Date: 07/24/2021 7:00:00 [...] details. Electronically signed: Khoa Chahal. Transcribed by: [email or web address], User Resident: Electronically Signed by: KHOA CHAHAL @ 07/25/2021 08:48 AM Normal [facility] Comment on above: Order Comment: ERCP Endoscopy Reporton Endoscopy Report MR#: [id number] [facility] Pt. Name: Andry Pierre Surgery Date: 07/24/2021 Room #: [id number] Date of : 1960 PROCEDURE NOTE ATTENDING: Amy Remy M.D. SIGN ERECTOR: Cyrus Decker MD PROCEDURE: ERCP with biliary [...] Decker MD Date Trans: 07/24/2021 09:24 P/michaela [id number] cc: Luis Mccormick M.D. [address] [facility] [address] Normal [facility] LIVER BATTERYon 07-24-2021 Albumin [Mass/Vol] 3.3 g/dL Low 3.5-5.7 [facility] Comment on above: Order Comment: No: D o not add to previous draw Performed By: #### 0 0071, 99821 #### [facility] [address] [facility]. [address] ALKALINE PHOSPH 106 IU/L High 34-104 [facility] Comment on above: Order Comment: No: D o not add to previous draw Performed By: #### 0 0071, 68934 #### [facility] [address] ALT [Catalytic activity/Vol] 26 U/L Normal 7-52 [facility] Comment on above: Order Comment: No: D o not add to previous draw Performed By: #### 0 0071, 45858 #### [facility] [address] [place] [address], [place] AST [Catalytic activity/Vol] 17 U/L Normal 13-39 [facility] Comment on above: Order Comment: No: D o not add to previous draw Performed By: #### 0 0071, 96117 #### [facility] [address] [place] [address], [place] Bilirubin [Mass/Vol] 0.3 mg/dL Normal 0.3-1.0 [facility] Comment on above: Order Comment: No: D o not add to previous draw Performed By: #### 0 0071, 96260 #### [facility] [address] [place] [address], [place] Bilirubin.direct [Mass/Vol] 0.0 mg/dL Normal 0.0-0.2 [facility] Comment on above: Order Comment: No: D o not add to previous draw Performed By: #### 0 0071, 30282 #### [facility] [address] [place] [address], [place] Protein [Mass/Vol] 6.1 g/dL Normal 6.0-8.3 [facility] Comment on above: Order Comment: No: D o not add to previous draw Performed By: #### 0 0071, 76681 #### [facility] [address] [place] [address], [place] POC GLUCOSE LABon 07-24-2021 Glucose [Mass/Vol] 89 mg/dL Normal 70-100 [facility] Comment on above: Performed By: #### 8 5499 #### [facility] [address] [place] [address], [place] Glucose [Mass/Vol] 89 mg/dL Normal 70-100 [facility] Comment on above: Performed By: #### 1 0070, 57223, 36741, 11895 #### [facility] [address] [place] [address], [place] Glucose [Mass/Vol] 166 mg/dL High 70-100 [facility] Comment on above: Performed By: #### 8 5499 #### [facility] [address] [facility] [place] [address], [facility] Glucose [Mass/Vol] 391 mg/dL High 70-100 [facility] Comment on above: Performed By: #### 8 5499 #### [facility] [address] [facility]. [address] POC SARS COV2 ANTIGEN NEGATI VEon 07-24-2021 POC SARS COV2 ANTIGEN NEG Negative Normal NEGATIVE [facility] Comment on above: Result Comment: Nega tive [...] signs and symptoms consistent with COVID-19. The CiRBAW COVID-19 Ag Card is a lateral flow [...] Accreditation. Performed By: #### 8 5499 #### [facility] [address] [facility]. [address] PROTHROMBIN TIMEon 1 INR Coag (PPP) [Relative time] 1.53 {INR} High 0.91-1.16 [facility] Comment on above: Order Comment: No: D [...] CHEST 1995;108:231S-246S. Performed By: #### 1 0070, 45942, 00134, 59537 #### [facility] [address] [facility] [place] [address], [facility] PT Coag (PPP) [Time] 18.3 s High 12.3-14.8 [facility] Comment on above: Order Comment: No: D o not add to previous draw Result Comment: ALL RESULTS MUST BE INTERPRETED WITH RESPECT TO BLOOD DRAWING ARTIFACT OR DILUTION ERROR OF ANTICOAGULANT AT THE TIME OF SAMPLING. Performed By: #### 1 0070, 74043, 05667, 77280 #### [facility] [address] [place] [address], [facility] COMP METABOLIC PANELon 07-23 Albumin [Mass/Vol] 3.5 g/dL Normal 3.5-5.7 [facility] Comment on above: Order Comment: No: D o not add to previous draw Performed By: #### 8 5499 #### [facility] [address] [place] [address], [facility] ALKALINE PHOSPH 122 IU/L High 34-104 [facility] Comment on above: Order Comment: No: D o not add to previous draw Performed By: #### 8 5499 #### [facility] [address] [place] [address], [place] ALT [Catalytic activity/Vol] 32 U/L Normal 7-52 [facility] Comment on above: Order Comment: No: D o not add to previous draw Performed By: #### 8 5499 #### [facility] [address] [place] [address], [place] AST [Catalytic activity/Vol] 22 U/L Normal 13-39 [facility] Comment on above: Order Comment: No: D o not add to previous draw Performed By: #### 8 5499 #### [facility] [address] [place] [address], [place] Bilirubin [Mass/Vol] 0.4 mg/dL Normal 0.3-1.0 [facility] Comment on above: Order Comment: No: D o not add to previous draw Performed By: #### 8 5499 #### [facility] [address] [place] [address], [place] Calcium [Mass/Vol] 8.5 mg/dL Low 8.6-10.3 [facility] Comment on above: Order Comment: No: D o not add to previous draw Performed By: #### 8 5499 #### [facility] [address] [place] [address], [place] Chloride [Moles/Vol] 110 mmol/L High 98-107 [facility] Comment on above: Order Comment: No: D o not add to previous draw Performed By: #### 8 5499 #### [facility] [address] [place] [address], [place] CO2 [Moles/Vol] 23 mmol/L Normal 21-31 [facility] Comment on above: Order Comment: No: D o not add to previous draw Performed By: #### 8 5499 #### [facility] [address] [place] [address], [place] Creatinine [Mass/Vol] 1.33 mg/dL High 0.70-1.30 [facility] Comment on above: Order Comment: No: D o not add to previous draw Performed By: #### 8 5499 #### [facility] [address] [place] [address], [place] eGFR- non- 55 ml/min/1.73sq m Abnormal >60 [facility] Comment on above: Order Comment: No: D o not add to previous draw Performed By: #### 8 5499 #### [facility] [address] [place] [address], [place] GFR/1.73 sq M.predicted among blacks MDRD (S/P/Bld) [Vol rate/Area] mL/min/{1.73_m2} Normal >60 [facility] Comment on above: Order Comment: No: D o not add to previous draw Performed By: #### 8 5499 #### [facility] [address] [place] [address], [place] Glucose [Mass/Vol] 198 mg/dL High 70-100 [facility] Comment on above: Order Comment: No: D o not add to previous draw Performed By: #### 8 5499 #### [facility] [address] [place] [address], [place] Potassium [Moles/Vol] 3.5 mmol/L Normal 3.5-5.1 [facility] Comment on above: Order Comment: No: D o not add to previous draw Performed By: #### 8 5499 #### [facility] [address] [place] [address], [place] Protein [Mass/Vol] 6.3 g/dL Normal 6.0-8.3 [facility] Comment on above: Order Comment: No: D o not add to previous draw Performed By: #### 8 5499 #### [facility] [address] [place] [address], [place] Sodium [Moles/Vol] 142 mmol/L Normal 136-145 [facility] Comment on above: Order Comment: No: D o not add to previous draw Performed By: #### 8 5499 #### [facility] [address] [place] [address], [place] Urea nitrogen [Mass/Vol] 25 mg/dL Normal 7-25 [facility] Comment on above: Order Comment: No: D o not add to previous draw Performed By: #### 8 5499 #### [facility] [address] [place] [address], [place] POC GLUCOSE LABon 07-23-2021 Glucose [Mass/Vol] 325 mg/dL High 70-100 [facility] Comment on above: Performed By: #### 8 5499 #### [facility] [address] [place] [address], [place] Glucose [Mass/Vol] 290 mg/dL High 70-100 [facility] Comment on above: Performed By: #### 1 0070, 47947, 37163, 33947 #### [facility] [address] [place] [address], [place] Glucose [Mass/Vol] 253 mg/dL High 70-100 [facility] Comment on above: Performed By: #### 1 0070, 28317, 97491, 11274 #### [facility] [address] [place] [address], [place] Glucose [Mass/Vol] 211 mg/dL High 70-100 [facility] Comment on above: Performed By: #### 8 5499 #### [facility] [address] [place] [address], [place] PROTHROMBIN TIMEon 1 INR Coag (PPP) [Relative time] 1.92 {INR} High 0.91-1.16 [facility] Comment on above: Order Comment: Unkno wn [...] 1995;108:231S-246S. Performed By: #### 8 5499 #### [facility] [address] PT Coag (PPP) [Time] 21.9 s High 12.3-14.8 [facility] Comment on above: Order Comment: Dirk Result Comment: ALL RESULTS MUST BE INTERPRETED WITH RESPECT TO BLOOD DRAWING ARTIFACT OR DILUTION ERROR OF ANTICOAGULANT AT THE TIME OF SAMPLING. Performed By: #### 8 5499 #### [facility] [address] APTTon 07-22-2021 aPTT Coag (Bld) [Time] 37.1 s High 25.0-35.0 [facility] Comment on above: Order Comment: No: D [...] THIS PURPOSE. Performed By: #### 1 0070, 86842, 73600, 35059 #### [facility] [address] [place] [address], [facility] BASIC METABOLIC PANELon 10-1 Calcium [Mass/Vol] 8.3 mg/dL Low 8.6-10.3 [facility] Comment on above: Order Comment: No: D o not add to previous draw Performed By: #### 8 5499 #### [facility] [address] [place] [address], [facility] Chloride [Moles/Vol] 109 mmol/L High 98-107 [facility] Comment on above: Order Comment: No: D o not add to previous draw Performed By: #### 8 5499 #### [facility] [address] [place] [address], [facility] CO2 [Moles/Vol] 28 mmol/L Normal 21-31 [facility] Comment on above: Order Comment: No: D o not add to previous draw Performed By: #### 8 5499 #### [facility] [address] [place] [id number], [facility] Creatinine [Mass/Vol] 1.48 mg/dL High 0.70-1.30 [facility] Comment on above: Order Comment: No: D o not add to previous draw Performed By: #### 8 5499 #### [facility] [address] [place] [address], [facility] eGFR- 59 ml/min/1.73sq m Abnormal >60 [facility] Comment on above: Order Comment: No: D o not add to previous draw Performed By: #### 8 5499 #### [facility] [address] [place] [id number], [facility] eGFR- non- 48 ml/min/1.73sq m Abnormal >60 [facility] Comment on above: Order Comment: No: D o not add to previous draw Performed By: #### 8 5499 #### [facility] [address] [place] [address], [place] Glucose [Mass/Vol] 216 mg/dL High 70-100 [facility] Comment on above: Order Comment: No: D o not add to previous draw Performed By: #### 8 5499 #### [facility] [address] [place] [address], [place] Potassium [Moles/Vol] 4.6 mmol/L Normal 3.5-5.1 [facility] Comment on above: Order Comment: No: D o not add to previous draw Performed By: #### 8 5499 #### [facility] [address] [place] [address], [place] Sodium [Moles/Vol] 141 mmol/L Normal 136-145 [facility] Comment on above: Order Comment: No: D o not add to previous draw Performed By: #### 8 5499 #### [facility] [address] [place] [address], [place] Urea nitrogen [Mass/Vol] 26 mg/dL High 7-25 [facility] Comment on above: Order Comment: No: D o not add to previous draw Performed By: #### 8 5499 #### [facility] [address] [place] [address], [place] CBC COMPLETE BLOOD COUNTon Erythrocyte distribution width (RBC) [Ratio] 13.2 % Normal 11.5-15.0 [facility] Comment on above: Order Comment: No: D o not add to previous draw Performed By: #### 8 5499 #### [facility] [address] [place] [address], [place] Hematocrit (Bld) [Volume fraction] 45.8 % Normal 39.0-50.0 [facility] Comment on above: Order Comment: No: D o not add to previous draw Performed By: #### 8 5499 #### [facility] [address] [place] [address], [facility] Hemoglobin (Bld) [Mass/Vol] 14.8 g/dL Normal 13.0-17.0 [facility] Comment on above: Order Comment: No: D o not add to previous draw Performed By: #### 8 5499 #### [facility] [address] [place] [id number], [facility] MCH (RBC) [Entitic mass] 31.0 pg Normal 27.0-33.0 [facility] Comment on above: Order Comment: No: D o not add to previous draw Performed By: #### 8 5499 #### [facility] [address] [place] [address], [facility] MCHC (RBC) [Mass/Vol] 32.3 g/dL Normal 32.0-35.0 [facility] Comment on above: Order Comment: No: D o not add to previous draw Performed By: #### 8 5499 #### [facility] [address] [place] [address], [facility] MCV (RBC) [Entitic vol] 95.8 fL Normal 82.0-98.0 [facility] Comment on above: Order Comment: No: D o not add to previous draw Performed By: #### 8 5499 #### [facility] [address] [facility] [place] [address], [facility] Nucleated RBC/100 WBC (Bld) [Ratio] 0 % Normal 0-0 [facility] Comment on above: Order Comment: No: D o not add to previous draw Performed By: #### 8 5499 #### [facility] [address] [facility] [place] [address], [facility] PLAT CNT 209 10*3/uL Normal 150-400 [facility] Comment on above: Order Comment: No: D o not add to previous draw Performed By: #### 8 [id number] #### [facility] [address] [place] [address], [facility] RBC (Bld) [#/Vol] 4.78 10*6/uL Normal 4.20-5.70 [facility] Comment on above: Order Comment: No: D o not add to previous draw Performed By: #### 8 5499 #### [facility] [address] [place] [id number], [facility] WBC (Bld) [#/Vol] 8.89 10*3/uL Normal 4.00-10.60 [facility] Comment on above: Order Comment: No: D o not add to previous draw Performed By: #### 8 5499 #### [facility] [address] [place] [address], [facility] LIVER BATTERYon 07-22-2021 Albumin [Mass/Vol] 3.2 g/dL Low 3.5-5.7 [facility] Comment on above: Performed By: #### 8 [id number] #### [facility] [address] [place] [address], [facility] ALKALINE PHOSPH 111 IU/L High 34-104 [facility] Comment on above: Performed By: #### 8 [id number] #### [facility] [address] ALT [Catalytic activity/Vol] 23 U/L Normal 7-52 [facility] Comment on above: Performed By: #### 8 [id number] #### [facility] [address] AST [Catalytic activity/Vol] 17 U/L Normal 13-39 [facility] Comment on above: Performed By: #### 8 [id number] #### [facility] [address] [place] [address], [facility] Bilirubin [Mass/Vol] 0.3 mg/dL Normal 0.3-1.0 [facility] Comment on above: Performed By: #### 8 5499 #### [facility] [address] [place] [address], [place] Bilirubin.direct [Mass/Vol] 0.0 mg/dL Normal 0.0-0.2 [facility] Comment on above: Performed By: #### 8 5499 #### [facility] [address] [place] [address], [place] Protein [Mass/Vol] 5.5 g/dL Low 6.0-8.3 [facility] Comment on above: Performed By: #### 8 5499 #### [facility] [address] [place] [address], [place] MAGNESIUM BLOODon 07-22-2021 Magnesium [Mass/Vol] 2.0 mg/dL Normal 1.9-2.7 [facility] Comment on above: Order Comment: No: D o not add to previous draw Performed By: #### 8 5499 #### [facility] [address] [place] [address], [place] PHOSPHORUS BLOODon Phosphate [Mass/Vol] 3.0 mg/dL Normal 2.5-5.0 [facility] Comment on above: Order Comment: No: D o not add to previous draw Performed By: #### 8 5499 #### [facility] [address] [place] [address], [place] POC GLUCOSE LABon 07-22-2021 Glucose [Mass/Vol] 223 mg/dL High 70-100 [facility] Comment on above: Performed By: #### 1 0070, 14344, 89993, 81511 #### [facility] [address] [place] [address], [place] Glucose [Mass/Vol] 222 mg/dL High 70-100 [facility] Comment on above: Performed By: #### 8 5499 #### [facility] [address] [place] [address], [place] Glucose [Mass/Vol] 245 mg/dL High 70-100 [facility] Comment on above: Performed By: #### 8 [id number] #### [facility] 3000 [facility]. [address] Glucose [Mass/Vol] 202 mg/dL High 70-100 [facility] Comment on above: Performed By: #### 1 0070, 96841, 78491, 76641 #### [facility] [address] [facility] [address] PROTHROMBIN TIMEon 1 INR Coag (PPP) [Relative time] 2.27 {INR} High 0.91-1.16 [facility] Comment on above: Order Comment: No: D [...] CHEST 1995;108:[id number]. Performed By: #### 1 0070, 95793, 80587, 78776 #### [facility] [address] [facility]. [address] PT Coag (PPP) [Time] 24.9 s High 12.3-14.8 [facility] Comment on above: Order Comment: No: D o not add to previous draw Result Comment: ALL RESULTS MUST BE INTERPRETED WITH RESPECT TO BLOOD DRAWING ARTIFACT OR DILUTION ERROR OF ANTICOAGULANT AT THE TIME OF SAMPLING. Performed By: #### 1 0070, 71862, 12855, 87243 #### [facility] [address] [place] [address], [facility] Basic Metabolic Panelon 07-06 Calcium [Mass/Vol] 9.4 mg/dL Normal 8.2-10.2 [facility] Comment on above: Performed By: #### H EPATIC, CBC, LIPASE, BMP #### [facility] [address] Chloride [Moles/Vol] 103 mmol/L Normal 95-114 [facility] Comment on above: Performed By: #### H EPATIC, CBC, LIPASE, BMP #### [facility] [address] CO2 [Moles/Vol] 26.9 mmol/L Normal 22.0-30.0 [facility] Comment on above: Performed By: #### H EPATIC, CBC, LIPASE, BMP #### [address] Creatinine [Mass/Vol] 1.66 mg/dL High 0.64-1.27 [facility] Comment on above: Performed By: #### H EPATIC, CBC, LIPASE, BMP #### [facility] [address] [place] [address] [place] Creatinine Clr Calc Pharmacy 68.90 [facility] Comment on above: Performed By: #### H EPATIC, CBC, LIPASE, BMP #### [facility] [address] [place] [address] Estimated GFR ( Beata 51 [facility] Comment on above: Result Comment: GFR estimated reference range: According to KDOQI guidelines, <60 ml/min/1.73m2 is sufficient to diagnose a patient with chronic kidney disease. Performed By: #### H EPATIC, CBC, LIPASE, BMP #### [facility] [address] [place] [address] Estimated GFR (Non- Am 42 [facility] Comment on above: Performed By: #### H EPATIC, CBC, LIPASE, BMP #### [facility] [address] Glucose [Mass/Vol] 442 mg/dL High 70-100 [facility] Comment on above: Result Comment: [place] Glucose Reference Range is dependent on time and content of last meal. Glucose of more than 200 mg/dL in a nonstressed, ambulatory subject supports the diagnosis of Diabetes Mellitus. ADA recommended reference range Performed By: #### H EPATIC, CBC, LIPASE, BMP #### [facility] [address] Potassium [Moles/Vol] 4.1 mmol/L Normal 3.5-5.1 [facility] Comment on above: Performed By: #### H EPATIC, CBC, LIPASE, BMP #### [facility] [address] [place] [address] Sodium [Moles/Vol] 140 mmol/L Normal 136-146 [facility] Comment on above: Performed By: #### H EPATIC, CBC, LIPASE, BMP #### [facility] [address] Urea nitrogen [Mass/Vol] 29 mg/dL High 9-23 [facility] Comment on above: Performed By: #### H EPATIC, CBC, LIPASE, BMP #### [facility] [address] [place] [address] COVID-19 Antigenon 1 COVID-19 Antigen Healthcare Worker?: [...] its performance Tamera Disclaimer characteristic determined by [employer] and Tamera Disclaimer validated at [facility]. This Tamera Disclaimer test has [...] is terminated or revoked sooner. PERFORMED BY: [address] [place] [address] PATHOLOGIST [employer] M.D. Normal [facility] Comment on above: Performed By: #### C OVID-19 TAMERA, SOFIANEG, COVID 19 [facility] #### [facility] [address] [place] [address] [facility] COVID-19 FRon 07-21-2021 SARS-CoV-2 (COVID-19) RNA EMMY+probe Ql (Unsp spec) Negative Normal Negative [facility] Comment on above: Order Comment: Healt hcare Worker?: Y Result Comment: Testing for SARS-CoV-2 by RT-PCR This test was developed and its performance characteristics determined by [employer] and validated at the [facility]. This test has not been [...] is terminated or revoked sooner. PERFORMED BY: [address] [address] PATHOLOGIST [employer] M.D. Performed By: #### C OVID-19 TAMERA, SOFIANEG, COVID 19 [facility] #### [address] [place] [address] [facility] CT abdomen pelvis wo conon 1 CT abdomen pelvis wo con [facility] [address] [place] [id number] Scan Report Signed Patient: Andry Pierre MR#: [id number] 28 : 1960 Acct:[id number] Age/Sex: 60 / M ADM Date: 07/21/21 Loc: Room: [address] [place] [address] Type: ADM INOo Attending Dr: Feliciano Hernandez [...] Ricks Jr., M.D.07/21/2021 9:15 AM Dictation Location: [place] [address] Transcribed By: [facility] 07/21/21914 Dictated By: Duke Ricks Jr, MD 07/21/2104 Signed By: 07/21/2115 Normal [facility] Coagulation Profileon 2020 aPTT Coag (Bld) [Time] 37.9 s High 25.1-36.5 [facility] Comment on above: Result Comment: PERF ORMED BY: [place] [address] PATHOLOGIST [employer] M.D. Performed By: #### P P #### [address] INR Coag (PPP) [Relative time] 2.0 {INR} Normal [facility] Comment on above: Result Comment: [...] 4.5 Performed By: #### P P #### [address] PT Coag (PPP) [Time] 22.5 s High 9.0-12.9 [facility] Comment on above: Performed By: #### P P #### [address] Complete Blood Count Auto Di ffon 07-21-2021 Basophils (Bld) [#/Vol] 0.1 10*3/uL Normal 0.0-0.2 [facility] Comment on above: Result Comment: PERF ORMED BY: [place] [address] PATHOLOGIST [employer] M.D. Performed By: #### H EPATIC, CBC, LIPASE, BMP #### [address] Basophils/100 WBC (Bld) 0.6 % Normal . [facility] Comment on above: Performed By: #### H EPATIC, CBC, LIPASE, BMP #### [address] Eosinophils (Bld) [#/Vol] 0.4 10*3/uL Normal 0.0-0.45 [facility] Comment on above: Performed By: #### H EPATIC, CBC, LIPASE, BMP #### [address] Eosinophils/100 WBC (Bld) 4.3 % Normal . [facility] Comment on above: Performed By: #### H EPATIC, CBC, LIPASE, BMP #### [address] Erythrocyte distribution width (RBC) [Ratio] 13.7 % Normal 12.0-14.8 [facility] Comment on above: Performed By: #### H EPATIC, CBC, LIPASE, BMP #### [address] Hematocrit (Bld) [Volume fraction] 45.9 % Normal 38.8-50.0 [facility] Comment on above: Performed By: #### H EPATIC, CBC, LIPASE, BMP #### [address] Hemoglobin (Bld) [Mass/Vol] 15.4 g/dL Normal 13.0-17.0 [facility] Comment on above: Performed By: #### H EPATIC, CBC, LIPASE, BMP #### [address] Lymphocytes (Bld) [#/Vol] 2.9 10*3/uL Normal 1.00-4.8 [facility] Comment on above: Performed By: #### H EPATIC, CBC, LIPASE, BMP #### [address] Lymphocytes/100 WBC (Bld) 28.4 % Normal . [facility] Comment on above: Performed By: #### H EPATIC, CBC, LIPASE, BMP #### [address] MCH (RBC) [Entitic mass] 32.0 pg Normal 27.5-35.2 [facility] Comment on above: Performed By: #### H EPATIC, CBC, LIPASE, BMP #### [address] MCV (RBC) [Entitic vol] 95.2 fL Normal 83.5-101 [facility] Comment on above: Performed By: #### H EPATIC, CBC, LIPASE, BMP #### [address] Mean Corpuscular HGB Conc 33.6 g/dL Normal 32.5-35.6 [facility] Comment on above: Performed By: #### H EPATIC, CBC, LIPASE, BMP #### [address] Monocytes (Bld) [#/Vol] 0.7 10*3/uL Normal 0.0-0.8 [facility] Comment on above: Performed By: #### H EPATIC, CBC, LIPASE, BMP #### [address] Monocytes/100 WBC (Bld) 6.7 % Normal . [facility] Comment on above: Performed By: #### H EPATIC, CBC, LIPASE, BMP #### [address] Neutrophils (Bld) [#/Vol] 6.0 10*3/uL Normal 1.8-7.7 [facility] Comment on above: Performed By: #### H EPATIC, CBC, LIPASE, BMP #### [address] Neutrophils/100 WBC (Bld) 60.0 % Normal . [facility] Comment on above: Performed By: #### H EPATIC, CBC, LIPASE, BMP #### [address] Nucleated RBC/100 WBC (Bld) [Ratio] 0.1 % Normal 0-0.5 [facility] Comment on above: Performed By: #### H EPATIC, CBC, LIPASE, BMP #### [facility] [address] Platelet mean volume (Bld) [Entitic vol] 8.7 fL Normal 6.6-10.1 [facility] Comment on above: Performed By: #### H EPATIC, CBC, LIPASE, BMP #### [facility] [address] Platelets (Bld) [#/Vol] 215 10*3/uL Normal 150-450 [facility] Comment on above: Performed By: #### H EPATIC, CBC, LIPASE, BMP #### [address] RBC (Bld) [#/Vol] 4.83 10*6/uL Normal 3.90-5.60 [facility] Comment on above: Performed By: #### H EPATIC, CBC, LIPASE, BMP #### [address] WBC (Bld) [#/Vol] 10.0 10*3/uL Normal 4.5-11.0 [facility] Comment on above: Performed By: #### H EPATIC, CBC, LIPASE, BMP #### [address] Glucose Poct Glucometerson 1 Commemt1 Glu2: Cleaned Meter Normal [facility] Comment on above: Result Comment: PERF ORMED BY: [place] [address] PATHOLOGIST [employer] M.D. Performed By: #### H EPATIC, CBC, LIPASE, BMP #### [address] Glucose [Mass/Vol] 267 mg/dL Normal [facility] Comment on above: Result Comment: [facility] Glucose Reference Range is dependent on time and content of last meal. Glucose of more than 200 mg/dL in a nonstressed, ambulatory subject supports the diagnosis of Diabetes Mellitus. Performed By: #### H EPATIC, CBC, LIPASE, BMP #### [address] Commemt1 Glu2: Cleaned Meter [facility] Comment on above: Result Comment: PERF ORMED BY: [place] [address] PATHOLOGIST [employer] M.D. Performed By: #### H EPATIC, CBC, LIPASE, BMP #### [address] Glucose [Mass/Vol] 252 mg/dL Normal [facility] Comment on above: Result Comment: [place] om Glucose Reference Range is dependent on time and content of last meal. Glucose of more than 200 mg/dL in a nonstressed, ambulatory subject supports the diagnosis of Diabetes Mellitus. Performed By: #### H EPATIC, CBC, LIPASE, BMP #### [address] Commemt1 Glu2: Cleaned Meter [facility] Comment on above: Result Comment: PERF ORMED BY: [place] [address] PATHOLOGIST [employer] M.D. Performed By: #### H EPATIC, CBC, LIPASE, BMP #### [address] Glucose [Mass/Vol] 100 mg/dL Normal [facility] Comment on above: Result Comment: [place] om Glucose Reference Range is dependent on time and content of last meal. Glucose of more than 200 mg/dL in a nonstressed, ambulatory subject supports the diagnosis of Diabetes Mellitus. Performed By: #### H EPATIC, CBC, LIPASE, BMP #### [place] [address] [place] Glucose [Mass/Vol] 140 mg/dL Normal [facility] Comment on above: Result Comment: [place] om Glucose Reference Range is dependent on time and content of last meal. Glucose of more than 200 mg/dL in a nonstressed, ambulatory subject supports the diagnosis of Diabetes Mellitus. PERFORMED BY: [place] [address] PATHOLOGIST [employer] M.D. Performed By: #### H EPATIC, CBC, LIPASE, BMP #### [facility] [address] [place] [address] Hepatic Panelon 07-21-2021 Albumin [Mass/Vol] 3.5 g/dL Normal 3.2-5.5 [facility] Comment on above: Performed By: #### H EPATIC, CBC, LIPASE, BMP #### [address] Albumin/Globulin [Mass ratio] 1.1 {ratio} Normal [facility] Comment on above: Performed By: #### H EPATIC, CBC, LIPASE, BMP #### [address] ALP [Catalytic activity/Vol] 115 U/L High 32-92 [facility] Comment on above: Performed By: #### H EPATIC, CBC, LIPASE, BMP #### [address] ALT [Catalytic activity/Vol] 30 U/L Normal 10-60 [facility] Comment on above: Performed By: #### H EPATIC, CBC, LIPASE, BMP #### [address] AST [Catalytic activity/Vol] 19 U/L Normal 10-42 [facility] Comment on above: Performed By: #### H EPATIC, CBC, LIPASE, BMP #### [facility] [address] [place] [address] Bilirubin [Mass/Vol] 0.7 mg/dL Normal 0.3-1.2 [facility] Comment on above: Performed By: #### H EPATIC, CBC, LIPASE, BMP #### [facility] [address] [place] [address] Bilirubin,Indirect Not performed Normal [facility] Comment on above: Performed By: #### H EPATIC, CBC, LIPASE, BMP #### [place] [address] Bilirubin.indirect [Mass/Vol] mg/dL Normal 0.0-0.4 [facility] Comment on above: Performed By: #### H EPATIC, CBC, LIPASE, BMP #### [address] Globulin (S) [Mass/Vol] 3.2 g/dL Normal [facility] Comment on above: Performed By: #### H EPATIC, CBC, LIPASE, BMP #### [address] Protein [Mass/Vol] 6.7 g/dL Normal 6.1-7.9 [facility] Comment on above: Performed By: #### H EPATIC, CBC, LIPASE, BMP #### [address] Lactic Acidon 07-21-2021 Lactate [Moles/Vol] 1.2 mmol/L Normal 0.5-2.2 [facility] Comment on above: Result Comment: PERF ORMED BY: [place] [address] PATHOLOGIST [employer] M.D. Performed By: #### L ACTIC #### [address] Lipaseon 07-21-2021 Lipase [Catalytic activity/Vol] 43.0 U/L Normal 22-51 [facility] Comment on above: Result Comment: PERF ORMED BY: [place] [address] PATHOLOGIST [employer] M.D. Performed By: #### H EPATIC, CBC, LIPASE, BMP #### [address] Tamera Ag Negativeon 07-21-20 21 Tamera Ag Negative Negative Normal Negative [facility] Comment on above: Result Comment: This is a duplicate Tamera SARS Antigen (GIOVANNA) result to be used for statistical tracking purpose only. PERFORMED BY: [address] [place] [address] PATHOLOGIST [employer] M.D. Performed By: #### C OVID-19 TAMERA, SOFIANEG, COVID 19 [facility] #### [facility] [address] [place] [address] Urinalysison 07-21-2021 Appearance (U) Clear Normal Clear [facility] Comment on above: Order Comment: Name Collection Type:: Clean-Voided Midstream Performed By: #### U A #### [place] [address] [place] Bilirubin,Urine Negative Normal Negative [facility] Comment on above: Order Comment: Name Collection Type:: Clean-Voided Midstream Performed By: #### U A #### [address] Color (U) Yellow Normal Yellow [facility] Comment on above: Order Comment: Name Collection Type:: Clean-Voided Midstream Performed By: #### U A #### [address] Glucose Ql (U) >=1000 High Normal [facility] Comment on above: Order Comment: Name Collection Type:: Clean-Voided Midstream Performed By: #### U A #### [address] Ketones Ql (U) Negative Normal Negative [facility] Comment on above: Order Comment: Name Collection Type:: Clean-Voided Midstream Performed By: #### U A #### [place] [address] [place] Leukocyte esterase Test strip Ql (U) Negative Normal Negative [facility] Comment on above: Order Comment: Name Collection Type:: Clean-Voided Midstream Performed By: #### U A #### [place] [address] [place] Nitrite,Urine Negative Normal Negative [facility] Comment on above: Order Comment: Name Collection Type:: Clean-Voided Midstream Performed By: #### U A #### [place] [id number] [place] Occult Blood,Urine Negative Normal Negative [facility] Comment on above: Order Comment: Name Collection Type:: Clean-Voided Midstream Result Comment: PERF ORMED BY: [place] [address] PATHOLOGIST [employer] M.D. Performed By: #### U A #### [address] pH (U) 6.5 [pH] Normal 5.0-9.0 [facility] Comment on above: Order Comment: Name Collection Type:: Clean-Voided Midstream Performed By: #### U A #### [address] Protein,Urine Negative Normal Negative [facility] Comment on above: Order Comment: Name Collection Type:: Clean-Voided Midstream Performed By: #### U A #### [address] Specificy [place],Urine 1.026 Normal 1.001-1.030 [facility] Comment on above: Order Comment: Name Collection Type:: Clean-Voided Midstream Performed By: #### U A #### [address] Urobilinogen,Urine Normal Normal Normal [facility] Comment on above: Order Comment: Name Collection Type:: Clean-Voided Midstream Performed By: #### U A #### [address] General Surgery Office/Clini c Noteon 05-31-2021 [...] hematuria Head injury Heart disease History of mcc anticoagulant use History of stroke Hyperlipidemia Hypertension [...] Pantoprazole [address] Tab Potassium Chloride (Atm-Euik-Agg M20) 20 mEq oral tablet, extended release [...] 30 days ago (more content not included)... [facility] Comment on above: Result Comment: Elec tronically Signed By: NOE GEORGE, Andry Das\.br\Date and Time Signed: 05/31/21 11:26 EDT Ambulatory Clinical Summaryo n 05-29-2021 Ambulatory Clinical Summary {[id number]}CD:6143 68 [facility] Outside Colonoscopyon 2020 Outside Colonoscopy [id number]:127 [facility] Pathology Noteon 05-25-2021 Pathology Note [id number]#[id number]:127 [facility] May 23, 2021 Luis Anny, [facility] [place] [address] Re: ANDRY PIERRE Date of : 1960 Thank you for your referral of Andry Pierre who was seen on consultation on May 18, 2021, for Right upper quadrant pain and rectal bleeding, nausea, vomiting, and constipation. I have enclosed my consultation notes for your review. I will be happy to follow Andry should his symptoms persist. Sincerely, Andry Adames MD General Surgery [facility] Consent for Procedure/Surger yon 05-21-2021 Consent for Procedure/Surgery [id number]:127 [facility] Immunization Recordson 05-21 Immunization Records [id number]:127 [facility] Ambulatory Clinical Summaryo n 05-18-2021 Ambulatory Clinical Summary {[id number]}CD:6143 68 Normal [facility] General Surgery Office/Clini c Noteon 05-18-2021 General Surgery Office/Clinic Note HPI Staff Est patient , RUQ pain x 8 wks , u/s done 05/03/21 @ [facility]. recent rectal bleeding currently having nausea [...] in remote past and was hospitalized in [place] with a torn muscle; only abdominal operation RIHR x 3; recent CT scan of abdomen wnl; GB US with possible small stones adherent to fundus of gallbladder, no wall thickening or ductal dilation; normal HIDA scan; all studies personally reviewed; no h/o jaundice or pancreatitis; poor po intake, with mild recent wt loss; patient reports that he had a colonoscopy at [facility] within the last 5 years, but no [...] hematuria Head injury Heart disease History of mcc anticoagulant use History of stroke Hyperlipidemia Hypertension Liver cancer Nausea and vomiting Neck pain Nocturia Parkinsons Retention of urine seizures Seizures Urge incontinence Urinary retention Urinary urgency Historical Arthritis Procedure/Surgical History Implantation of electronic stimulator in 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 Normal [facility] Comment on above: Result Comment: Elec tronically Signed By: NOE GEORGE, Andry Farfan.br\Date and Time Signed: 05/18/21 15:[address] - CT Reporton 05-17-20[address] RAD - CT Report [id number]#1.00CD:127 Normal [facility] RAD - MISCon 05-17-2021 RAD - MISC [id number]#1.00CD:127 [facility] RAD - MISC [id number]#1.00CD:127 [facility] RAD - Ultrasound Reporton RAD - Ultrasound Report [id number]#1.00CD:127 [facility] RAD - Ultrasound Reporton RAD - Ultrasound Report [id number]#1.00CD:127 Normal [facility] Physician Referralon 021 Physician Referral [id number]#1.00CD:127 Normal [facility] Letter [facility] March 23, 2021 Luis Mccormick, [address] [place] [address] Re: ANDRY PIERRE Date of : 1960 Thank you for your referral of Andry Pierre who was seen on consultation of excision of lump on the neck on March 14, 2021. I have enclosed my consultation notes for your review. I will be happy to follow Andry should his symptoms persist. Sincerely, Andry Adames MD General Surgery [facility] Ambulatory Clinical Summaryo n 03-14-2021 Ambulatory Clinical Summary {[id number]}CD:6143 68 [facility] Patient Educationon 03-14-20 21 Patient Education Exercising [...] your health care provider or diet and energy conservation specialist (dietitian). This may include: ? Eating [...] (more content not included)... Normal [facility] Physician Referralon 021 Physician Referral [id number]#1.00CD:127 [facility] Patient Correspondenceon Patient Correspondence [id number]#1.00CD:127 [facility] Reminderson 01-10-2021 Reminders - From: Rosa Cuellar [...] sign. LR Letter mailed regular/certified letter today. [facility] Provider Letteron 01-09-2021 Provider Letter (Inserted Image. Pina ble to display) January 09, 2021 ANDRY PIERRE [address] [place] [address] ANDRY PIERRE 1960 SENT VIA CERTIFIED AND REGULAR MAIL Dear Mr. Pierre, This letter is to inform you the providers of [facility] Urology/[facility] [employer] [facility], [facility] will no longer be responsible for your routine medical care due to your noncompliance. Emergency care only will be provided for the thirty (30) days following this letter. During this time period we suggest that you find another physician for your medical needs. A listing of area physicians can be found on [facility]'s website at [email or web address] or you may contact your health plan. We will be glad to forward your records to your new physician as long as we receive a signed release of records form. Sincerely, Larry Barfield M.D., F.A.C.S. [facility] [address] [address] Normal [facility] Patient Correspondenceon Patient Correspondence [id number]#1.00CD:127 Normal [facility] Provider Letter Office-[facility] 11-24-2020 Provider Letter [facility] November 24, 2020 ANDRY PIERRE [address] [place] [address] ANDRY PIERRE 1960 SENT VIA CERTIFIED AND [...] Larry Barfield M.D., F.A.C.S. [facility] [address], [place] [address] [facility] Reminderson 08-02-2020 Reminders - From: Radha King MA To: EU - Clinical; Sent: 07/19/2020 14:09:34 EDT Show up: 08/02/2020 14:09:00 EDT Subject: fish/cytol Reminder/Recall fish/cytol done 07/19/2020 done, sent msg to prw to review results [facility] Outside Cardiovascularon Outside Cardiovascular [id number]#1.00CD:127 [facility] Outside Radiologyon 08-01-20 20 Outside Radiology [id number]#1.00CD:127 [facility] Outside Radiology [id number]#1.00CD:127 [facility] Progress Note-Physicianon Progress Note-Physician [id number]#1.00CD:127 [facility] Urology Office/Clinic Noteon 07-25-2020 Urology Office/Clinic Note Chief Complaint New Pt. HPI Staff New Pt. [facility] on 07/10/2020 due to leaking around catheter. US of kidneys done 11/17/2019. CT SCAN done 07/04/2020. Pt. states after having a Ct scan Pt. was not able to urinate and had catheter placed. Pt. does not have a history of urine retention. 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 Pt. states by a Doctor in [place] told Pt. had prostates cancer. Pt. states no biopsy was done, just a blood test. PSA was 1.39 done 07/07/20. Cath was removed at [facility] this morning. Dysuria: denies pain or burning Incomplete bladder emptying: yes pt had cath for 2 weeks placed by [facility], cath was removed this morning at [facility] Hematuria: pt states he had visible [...] since last encounter. Reviewed CT scan and [facility] ER notes Review of Systems PHQ [...] Retention of urine, unspecified) Patient reported to [facility] ER for leaking around catheter on [...] (more content not included)... Normal [facility] Comment on above: Result Comment: Elec tronically Signed By: Yon GEORGE, Lefty Jamil\.br\Date and Time Signed: 07/25/20 12:11 EDT Urology Office/Clinic Note Chief Complaint [facility] 07/10/2020 HPI Staff [facility] on 07/10/2020 due to leaking around catheter. US of kidneys done 11/17/2019. Pt. states after having a Ct scan Pt. was not able to urinate and had catheter placed. Pt. does not have a history of urine retention. 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 Pt. states by a Doctor in [place] told Pt. had prostates cancer. Pt. states [...] abdominal pain. History of Present Illness Reviewed [employer] paper works. There have been no associated [...] of urine (R33.9: Retention of urine, unspecified) [employer] is here for urinary retention that started [...] prostate cancer 3yrs. ago by a in [place]. Pt. states that there was never a [...] (more content not included)... Normal [facility] Comment on above: Result Comment: Elec tronically Signed By: Yon GEORGE, Lefty Jamil\.br\Date and Time Signed: 07/25/20 11:44 EDT Lab Reportson 07-24-2020 Lab Reports [id number]#1.00CD:127 Normal [facility] U[facility]ion Fish and Urine Cyt o ([facility])on 07-24-2020 [facility] & UC Diagnosis Info Invalid Interpretation Code [facility] Comment on above: Result Comment: A:Ur [...] on: 07/24/2020 10:42:51 Performed By: #### 1 [id number] ####[facility] [address] [place] [address] RAD - [address] Reporton 07-21-[address] - [address] Report [id number]#1.00CD:127 Normal [facility] ED Note-Physicianon 07-20-20 ED Note-Physician [id number]#1.00CD:127 Normal [facility] Formson 07-20-2020 Forms [id number]#1.00CD:127 Normal [facility] Ambulatory Clinical Summaryo n 07-19-2020 Ambulatory Clinical Summary {[id number]}CD:6143 68 [facility] Ambulatory Clinical Summary {[id number]}CD:6143 68 [facility] Auth for Release of Medical Recordson 07-19-2020 Auth for Release of Medical Records [id number]#1.00CD:127 Normal [facility] Patient Educationon 07-19-20 Patient Education Family [...] Document Reviewed: 12/14/2012 ExitCare? Patient Information ?2013 iXpert. [facility] Patient Education Family Medicine Acute Urinary Retention, [...] drain your urine. Then you and your thermograph operator can decide at your earliest convenience how [...] to a urinary tract infection. Only take iggy-qms-zrffnrq or prescription medicines for pain, discomfort, or fever as directed by your caregiver. SEEK IMMEDIATE MEDICAL CARE IF: You develop chills, fever, or show signs of generalized illness that occurs prior to seeing your caregiver. Document Released: 12/29/2001 Document Revised: 12/14/2012 Document Reviewed: 09/13/2009 ExitCare? Patient Information ?2013 iXpert. [facility] Provider Letter FTon 07-19 Provider Letter [facility] Luis Mccormick [address] [place] [address] Re: ANDRY PIERRE Date of : 1960 [...] based on PSA alone per pt in [facility]. Equally confusing is the fact that this [...] a remote history of prostate cancer in [facility] by a outside urologist without a biopsy. [...] to determine his PSA's were done in [facility]. I began suspecting the patient was not [...] (more content not included)... Normal [facility] RAD - CT Reporton 07-19-[address] - [address] Report [id number]#1.00CD:127 Normal [facility] UroVysion Fish and Urine Cyt o ([facility])on 07-19-2020 [facility] Method of Extraction Voided Normal [facility] Comment on above: Performed By: #### 1 [id number] ####[facility] [address] [place] [address] [facility] Number of Jars 1 Invalid Interpretation Code [facility] Comment on above: Performed By: #### 1 [id number] ####[facility] [address] [place] [address] [facility] Specimen Urine Normal [facility] Comment on above: Performed By: #### 1 [id number] ####[facility] [address] [place] [address] [facility] Type of Service Technical Only Normal [facility] Comment on above: Performed By: #### 1 [id number] ####Nicolas [facility] [address] [place] [id number] Vital Signs Date Time Vital Sign Value Performing Clinician Facility 11-06-2023 09:57-0500 Body height 175.3 cm Obed Florian MD Work Phone: [facility] 11-06-2023 09:57-0500 Body weight 123.38 kg Obed Florian MD Work Phone: [facility] 11-06-2023 09:57-0500 Diastolic blood pressure 89 mm[Hg] Obed Florian MD Work Phone: [facility] 11-06-2023 09:57-0500 Heart rate 81 /min Obed Florian MD Work Phone: [facility] 11-06-2023 09:57-0500 SaO2% (BldA) [Mass fraction] 95 % Obed Florian MD Work Phone: [facility] 11-06-2023 09:57-0500 Systolic blood pressure 127 mm[Hg] Obed Florian MD Work Phone: [facility] 01-21-2022 07:23-0400 Body height 182.9 cm Pacc 3 Work Phone: [facility] 01-21-2022 07:23-0400 Body temperature 97.2 [degF] Pacc 3 Work Phone: [facility] 01-21-2022 07:23-0400 Body weight 140.21 kg Pacc 3 Work Phone: [facility] 01-21-2022 07:23-0400 Diastolic blood pressure 84 mm[Hg] Pacc 3 Work Phone: [facility] 01-21-2022 07:23-0400 Heart rate 57 /min Pacc 3 Work Phone: [facility] 01-21-2022 07:23-0400 SaO2% (BldA) [Mass fraction] 99 % Pacc 3 Work Phone: [facility] 01-21-2022 07:23-0400 Systolic blood pressure 134 mm[Hg] Pacc 3 Work Phone: [facility] 11-13-2021 12:20-0500 Body height 182.88 cm Sanjay Dooley Other [email or web address] Other 11-13-2021 12:20-0500 Body mass index (BMI) [Ratio] 42.04 kg/m2 Sanjay Dooley Other [email or web address] Other 11-13-2021 12:20-0500 Body temperature 96.2 [degF] Sanjay Laroses Other [email or web address] Other 11-13-2021 12:20-0500 Body weight 140.62 kg Sanjay Laroses Other [email or web address] Other 11-13-2021 12:20-0500 Diastolic blood pressure 60 mm[Hg] Sanjay Laroses Other [email or web address] Other 11-13-2021 12:20-0500 Respiratory rate 20 /min Sanjay Dooley Other [email or web address] Other 11-13-2021 12:20-0500 SaO2% (BldA) [Mass fraction] 96 % Sanjay Laroses Other [email or web address] Other 11-13-2021 12:20-0500 Systolic blood pressure 92 mm[Hg] Sanjay Laroses Other [email or web address] Other Encounters Encounter Date Encounter Type Care Provider Facility Start: 11-19-2023 End: 11-19-2023 Subsequent hospital visit by physician M[facility] Stress Lab 1 [facility] Comment on above: Canceled (Patient co ndition) Start: 11-06-2023 End: 11-07-2023 ambulatory [facility] Facility:[facility] Start: 11-06-2023 End: 11-06-2023 ambulatory [facility] Facility:[facility] Start: 11-06-2023 End: 11-06-2023 Patient encounter procedure Obed Florian MD Work Phone: Neurology Comment on above: Diabetic polyneuropa thy associated with type 2 diabetes mellitus (HCC) [E11.42] (Primary Dx); Weakness; Obesity, Class III, BMI 40-49.9 (morbid obesity) (HCC) Start: 10-21-2023 End: 10-22-2023 ambulatory [facility] Start: 10-10-2023 ambulatory [facility] Start: 10-08-2023 End: 10-14-2023 Emergency department patient visit [facility] Start: 09-19-2023 End: 09-20-2023 ambulatory [facility] Facility:[facility] Start: 09-12-2023 Telephone encounter Shane bowling PA-C Work Phone: [facility] Comment on above: DBS problem Start: 08-19-2023 End: 08-19-2023 ambulatory [facility] Start: 08-11-2023 End: 08-12-2023 ambulatory Ramon Mendiola MD Facility:[facility] Start: 07-17-2023 End: 07-18-[address] [facility] Start: 07-07-2023 Telephone encounter Glenn Rose MD Work Phone: [facility] Start: 05-21-2023 End: 05-21-2023 ambulatory [facility] Start: 02-20-2023 End: 02-21-2023 ambulatory [facility] Facility:[facility] Start: 02-20-2023 End: 02-20-2023 ambulatory [facility] Start: 02-03-2023 End: 03-05-2023 ambulatory CARMICHAEL H FAWWAD Facility:[facility] Start: 01-17-2023 End: 01-17-2023 ambulatory SOFYA BERRY [facility] Start: 01-09-2023 End: 01-09-2023 ambulatory LEMUEL LUNDCKO [facility] Start: 01-07-2023 End: 01-08-[address] LUIS MCCORMICK . Facility:[facility] Start: 01-06-2023 End: 01-06-2023 ambulatory SURI [facility] Start: 01-06-2023 End: 01-31-2023 ambulatory CARMICHAEL H FAWWAD Facility:[facility] Start: 12-04-2022 End: 01-03-2023 ambulatory CARMICHAEL H FAWWAD Facility:[facility] Start: 11-06-2022 End: 12-04-2022 ambulatory CARMICHAEL H FAWWAD Facility:[facility] Start: 10-07-2022 End: 11-06-2022 ambulatory CARMICHAEL H FAWWAManpreet Facility:[facility] Start: 09-05-2022 End: 10-06-2022 ambulatory CARMICHAEL H FAWWAManpreet Facility:[facility] Start: 08-06-2022 End: 09-04-[address] LUIS MCCORMICK . Facility:[facility] Start: 07-10-2022 Encounter for preprocedural laboratory examination LEMUEL RODRIGUEZ [facility] Start: 07-08-2022 End: 07-09-2022 ambulatory [...] Facility:[facility] Start: 05-23-2022 End: 05-24-2022 ambulatory SOFYA BERRY Facility: Start: 05-06-2022 End: 06-05-2022 ambulatory SHAIKH Brenda DEEWY Facility:[facility] Start: 04-05-2022 End: 05-03-2022 ambulatory SHAIKH Brenda DEWEY Facility: Start: 01-23-2022 Telephone encounter Glenn Rose MD Work Phone: [facility] Comment on above: Results Start: 01-21-2022 End: 01-21-2022 ambulatory Pac Main 3 Work Phone: Pre Anesthesia Comment on above: Pre-op evaluation (P rimary Dx); Essential tremor; Type 2 diabetes mellitus with other specified complication, with long-term current use of insulin ([facility]); Obesity, Class III, BMI >= 40; Essential hypertension; Difficult intravenous access; Acute, but ill-defined, cerebrovascular disease; Obstructive sleep apnea syndrome; Chronic obstructive pulmonary disease, unspecified COPD type ([facility]); Tobacco use; Tracheal stenosis; Gastroesophageal reflux disease, unspecified whether esophagitis present; Pulmonary embolus with infarction ([facility]); Congestive heart failure, unspecified HF chronicity, unspecified heart failure type ([facility]); Stage 3 chronic kidney disease, unspecified whether stage 3a or 3b CKD ([facility]) 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) (Primary Dx) Start: 01-21-2022 End: 01-21-2022 Nursing evaluation of patient and report Kerwin Cherryville RN Work Phone: [facility] Comment on above: Essential tremor (Pr imary Dx) Start: 01-21-2022 End: 01-21-2022 Patient encounter procedure Glenn Rose MD Work Phone: [facility] Comment on above: Essential tremor (Pr imary Dx) Start: 01-21-2022 End: 01-21-2022 Admission to [facility] Pacc Main 3 Work Phone: [facility] Start: 01-21-2022 End: 01-21-2022 Preprocedural examination done Pacc Main 3 Work Phone: Pre Anesthesia Start: 01-04-2022 Telephone encounter Harris chowdhury MD Work Phone: [facility] Comment on above: DBS MARIA G message Start: 11-26-2021 End: 11-26-2021 ambulatory Sanjay Dooley Other [email or web address] Other Start: 11-26-2021 Telephone encounter Sanjay MARIE [facility] Start: 11-13-2021 End: 11-13-2021 ambulatory Sanjay Dooley Other [email or web address] Other Start: 11-13-2021 Office outpatient ne w 45 minutes Sanjay MARIE [facility] Start: 11-13-2021 Telephone encounter Sanjay MARIE Neph[facility] Start: 07-21-2021 End: 07-27-2021 ambulatory JESUS BAUDILIO Facility:[facility] Procedures Date Procedure Procedure Detail Performing Clinician Start: 02-20-[address] CARITO MCCORMICK . Comment on above: Performed By: #### A 1C #### [facility] [address] [place] [address] Dr. Miah Buck Start: 07-26-2021 Resection of Gallbladder, Percutaneous Endoscopic Approach DAVON OLIVIER Start: 07-24-2021 DILATION OF COMMON HEPATIC DUCT, ENDO ALI T SANDRITA Start: 02-24-2015 Colonoscopy Mth 1 Start: 12-01-2014 H/O: surgery S/P deep brain stimulator placement Mth 1 Plan of Treatment Date Care Activity Detail Author Start: 02-21-2028 Prostate Cancer Screening Discussion Prostate Cancer Screening Discussion [facility] Start: 02-21-2028 Prostate specific antigen measurement Prostate Cancer Screening Discussion [facility] Start: 2025 Pneumococcal 0-64 years Vaccine (3 - PPSV23 or PCV20) Pneumococcal 0-64 years Vaccine (3 - PPSV23 or PCV20) [facility] Start: [address] [facility] Start: 02-24-2025 Screening for malignant neoplasm of colon [facility] Start: 12-16-2023 End: 12-16-2023 Patient encounter procedure 12/16/2023 2:00 PM EDT Procedure visit [facility] [address] [place] [address] Evelyn Claire MD [address] [place] [address] emg: ble (has heart monitor implanted- not pacemaker) [facility] Comment on above: emg: ble (has heart monitor implanted- not pacemaker) Start: 11-28-2023 End: 11-28-2023 Patient encounter procedure 11/28/2023 1:00 PM EST Appointment [facility] Non-Invasive Cardiology [address] [id number] MEDIA - R/S W/ PT GWEN 11/19/23 BB [facility] Comment on above: MEDIA - R/S W/ PT WI FE GWEN 11/19/23 BB Start: 11-25-2023 End: 11-25-2023 Patient encounter procedure 11/25/2023 11:40 AM EST Office Visit [facility] Neurology Specialist [address] [place] [address] [address] [place] [id number] Yudith Cintron PA [address] [place] [address], [address] [place] [address] 4W swallow study double vision [facility] Neurology Specialist Comment on above: 4W swallow study cesario ble vision Start: 11-04-2023 End: 11-04-2024 Tilt table Tilt table CV Cardiac Diagnostics Routine Syncope and collapse Expected: 11/04/2023, Expires: 11/04/2024 [employer] Work Phone: Comment on above: Expected: 11/04/2023 , Expires: 11/04/2024 Start: 10-27-2023 Complete blood count Hemoglobin/Juan tocrit [facility] Start: 10-27-2023 Creatinine measurement Serum Creatin ine [facility] Start: 10-27-2023 Serum Creatinine Serum Creatinine Cl [facility] Start: 10-06-2023 Annual Wellness Visi t (Medicare Advantage) Annual Wellness Visit (Medicare Advantage) [employer] Start: 06-06-2023 Covid-19 Vaccine (2 - 2023-24 season) Covid-19 Vaccine ( season) [facility] Start: 06-06-2023 Influenza vaccination Influenza Vacc ine (#1) [facility] Start: 05-06-2023 Influenza vaccination Flu vaccine (# 1) [facility] Start: 01-21-2023 HEMOGLOBIN/HEMATOCRIT HEMOGLOBIN/HEM ATOCRIT [facility] Start: 01-21-2023 SERUM CREATININE SERUM CREATININE [facility] Start: 11-28-2022 SERUM CREATININE SERUM CREATININE [facility] Start: 06-06-2022 Influenza vaccination INFLUENZ A (Season Ended) [facility] Start: 04-22-2022 Hemoglobin A1c measurement HbA1C [facility] Start: 04-22-2022 Hemoglobin A1c/Hemoglobin.total in Blood HBA1C [facility] Start: 01-20-2022 End: 03-22-2022 Hemoglobin A1c/Hemoglobin.total in Blood HGB A1C Lab Routine Type 2 diabetes mellitus with other specified complication, with long-term current use of insulin (HCC) Pre-op evaluation Expected: 01/20/2022, Expires: 03/22/2022 [facility] Work Phone: Comment on above: Expected: 01/20/2022 , Expires: 03/22/2022 Start: 02-03-2021 COVID-19 VACCINE (2 - Booster for Mary Ellen series) COVID-19 VACCINE (2 - Booster for Mary Ellen series) [facility] Start: 2020 Hepatitis B Vaccine (1 of 3 - Risk 3-dose series) Hepatitis B Vaccine (1 of 3 - Risk 3-dose series) [facility] Start: 2020 Respiratory Syncytia l Virus (RSV) or age 60 yrs+ (1 - 1-dose 60+ series) Respiratory Syncytial Virus (RSV) or age 60 yrs+ (1 - 1-dose 60+ series) [facility] Start: 2020 RSV Vaccine (1 - 1-dose 60+ series) RSV Vaccine (1 - 1-dose 60+ series) [facility] Start: 08-19-2020 Diabetic foot examination Diabetic foot exam [facility] Start: 12-12-2018 Hemoglobin A1c/Hemoglobin.total in Blood HBA1C [facility] Start: 08-29-2016 Urine screening for protein Diabetic Alb to Cr ratio (uACR) test [facility] Start: 08-09-2016 GFR test (Diabetes, CKD 3-4, OR last GFR 15-59) GFR test (Diabetes, CKD 3-4, OR last GFR 15-59) [facility] Start: 07-18-2016 Lipid panel Lipids [facility] Start: 05-05-2016 Hemoglobin A1c measurement A1C test (Diabetic or Prediabetic) [facility] Start: 2015 PROSTATE CANCER SCREENING DISCUSSION PROSTATE CANCER SCREENING DISCUSSION [facility] Start: 07-27-2015 Glaucoma screening Diabetic retinal exam [facility] Start: 2010 Shingles vaccine (1 of 2) Shingles vaccine (1 of 2) [facility] [facility] Start: 2010 SHINGRIX VACCINE (1 of 2) SHINGRIX VACCINE (1 of 2) [facility] Start: 2005 COLOGUARD (FIT-DNA) COLOGUARD (FIT-D NA) [facility] Start: [address] [facility] Start: 2005 COLORECTAL CANCER SCREENING COLORECTAL CANCER SCREENING [facility] Start: [address] COLONOGRAPHY [facility] Start: 2005 FECAL OCCULT BLOOD FECAL OCCULT BLOO D [facility] Start: 2005 Screening for malignant neoplasm of colon [facility] Start: 2005 SIGMOIDOSCOPY SIGMOIDOSCOPY [facility] Start: 10-07-2000 Urine microalbumin profile DTaP,Tdap,Td Vaccine (1 - Tdap) [facility] Start: 1990 Zoledronic acid therapy Alpha-[address] [facility] Start: 1979 DTaP/Tdap/Td vaccine (1 - Tdap) DTaP/Tdap/Td vaccine (1 - Tdap) [facility] Start: [address] [facility] Start: 1978 ANNUAL PCP TEAM CHRONIC DISEASE VISIT ANNUAL PCP TEAM CHRONIC DISEASE VISIT [facility] Start: 1978 BP CONTROLLED (<130/80) BP CONTROLLED (<130/80) [facility] Start: 1978 Hepatitis B surface antibody level LDL CHOLESTEROL [facility] Start: 1978 HEPATITIS C SCREENING HEPATITIS C [facility] Start: 1978 Hepatitis C screening Hepatitis C [facility] Start: 1978 HIV SCREENING HIV SCREENING [facility] Start: 1978 HIV screening HIV Screening [facility] Start: 1975 HIV screening HIV screen [facility] Start: 1972 Depression Monitoring Depression Mon itoring [facility] Start: 1970 3 comp foot exam completed DIABETIC FOOT EXAM [facility] Start: 1970 Diabetic foot examination Diabetic Foot Exam [facility] Start: 1970 Glaucoma screening Dilated Retinal E xam [facility] Start: 1970 Hepatitis B screening URINE ALBUMIN:CREATININE RATIO [facility] Start: 1970 Hepatitis C antibody , confirmatory test DILATED RETINAL EXAM 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 07-07-2020 Influenza, injectabl e, Madin [place] Canine Kidney, preservative free, quadrivalent Harris Faustin MD Work Phone: [facility] 08-01-2019 influenza virus vacc ine, unspecified formulation Harris Faustin MD Work Phone: [facility] 08-10-2018 influenza, injectabl e, quadrivalent, preservative free Harris Faustin MD Work Phone: [facility] 07-24-2018 Influenza, injectabl e, Madin [place] Canine Kidney, preservative free, quadrivalent Harris Faustin MD Work Phone: [facility] 09-10-2017 influenza virus vacc ine, unspecified formulation Harirs Faustin MD Work Phone: [facility] 08-11-2017 pneumococcal polysaccharide vaccine, 23 valent Harris Faustin MD Work Phone: [facility] 08-05-2016 influenza virus vacc ine, unspecified formulation Harris Faustin MD Work Phone: [facility] 11-13-2015 pneumococcal conjuga te vaccine, 13 valent Harris Faustin MD Work Phone: [facility] 07-18-2015 influenza virus vacc ine, unspecified formulation [facility] 07-18-2015 influenza virus vacc ine, whole virus Harris Faustin MD Work Phone: [facility] 07-06-2015 influenza, high dose seasonal, preservative-free Harris Faustin MD Work Phone: [facility] 09-13-2014 influenza, injectabl e, quadrivalent, preservative free Harris Faustin MD Work Phone: [facility] 06-25-2013 influenza, seasonal, injectable, preservative free Harris Faustin MD Work Phone: [facility] 06-17-2012 influenza, seasonal, injectable Harris Faustin MD Work Phone: [facility] 09-11-2010 pneumococcal polysaccharide vaccine, 23 valent Harris Faustin MD Work Phone: [facility] Payers Date Payer Category Payer Medicaid 2021 Medicare [id number] 2021 Medicare [id number] 2021 Unknown [id number] 2019 Unknown ANTHSUNDAY [place] [employer] BLUE SHIELD THANIA [facility] [id number] 2019-Present [phone] [address] [place] [address] [facility] [id number] 2018 Unknown [id number] 1960 Unknown [id number] 2.16.840.1.066416.3.579.2.6 47 1960 Unknown [id number] 2.16.840.1.670567.3.579.2.5 93 1960 Unknown [id number] 2.16.840.1.284336.3.579.2.5 93 1960 Unknown [id number] 2.16.840.1.008420.3.579.2.5 93 1960 Unknown [id number] 2.16.840.1.965368.3.579.2.5 93 1960 Unknown [id number] 2.16.840.1.839654.3.579.2.5 93 1960 Unknown [id number] 2.16.840.1.947090.3.579.2.5 93 1960 Unknown [id number] 2.16.840.1.808574.3.579.2.5 93 1960 Unknown [id number] 2.16.840.1.473750.3.579.2.5 93 1960 Unknown [id number] 2.16.840.1.602590.3.579.2.5 93 1960 Unknown [id number] 2.16.840.1.393880.3.579.2.5 93 1960 Unknown [id number] 2.16.840.1.863090.3.579.2.5 93 1960 Unknown [id number] 2.16.840.1.842251.3.579.2.5 93 1960 Unknown [id number] 2.16.840.1.822924.3.579.2.5 93 1960 Unknown [id number] 2.16.840.1.887841.3.579.2.5 93 1960 Unknown [id number] 2.16.840.1.803062.3.579.2.5 93 1960 Unknown [id number] 2.16.840.1.768847.3.579.2.5 93 1960 Unknown [id number] 2.16.840.1.630330.3.579.2.5 93 1960 Unknown [id number] 2.16.840.1.387498.3.579.2.5 93 1960 Unknown [id number] 2.16.840.1.351651.3.579.2.5 93 1960 Unknown [id number] 2.16.840.1.019372.3.579.2.1 96 1960 Unknown [id number] 2.16.840.1.831624.3.579.2.1 286 1960 Unknown [id number] 2.16.840.1.886058.3.579.2.1 286 1960 Unknown [id number] 2.16.840.1.767496.3.579.2.1 286 1960 Unknown [id number] 2.16.840.1.192128.3.579.2.1 286 1960 Unknown [id number] 2.16.840.1.110863.3.579.2.1 286 1960 Unknown [id number] 2.16.840.1.963735.3.579.2.1 286 1959 Private Health Insurance 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 03/14/2023 [facility] DATE CREATED AUTHOR AUTHOR'S ORGANIZ ATION 08/14/2023 [facility] DATE CREATED AUTHOR AUTHOR'S ORGANIZ ATION 10/19/2023 [facility] DATE CREATED AUTHOR AUTHOR'S ORGANIZ ATION 11/08/2023 [facility] DATE CREATED AUTHOR AUTHOR'S ORGANIZ ATION 11/10/2023 [facility] Source Comments (unrecognize d section and content) In the event this informatio n is protected by the Federal Confidentiality of Alcohol and Drug Abuse Patient Records regulations: The Federal rules restrict any use of the information to criminally investigate or prosecute any alcohol or drug abuse patient.[facility] the event this information is protected by the Federal Confidentiality of Alcohol and Drug Abuse Patient Records regulations: The Federal rules restrict any use of the information to criminally investigate or prosecute any alcohol or drug abuse patient.[facility] the event this information is protected by the Federal Confidentiality of Alcohol and Drug Abuse Patient Records regulations: The Federal rules restrict any use of the information to criminally investigate or prosecute any alcohol or drug abuse patient.[facility] the event this information is protected by the Federal Confidentiality of Alcohol and Drug Abuse Patient Records regulations: The Federal rules restrict any use of the information to criminally investigate or prosecute any alcohol or drug abuse patient.[facility] the event this information is protected by the Federal Confidentiality of Alcohol and Drug Abuse Patient Records regulations: The Federal rules restrict any use of the information to criminally investigate or prosecute any alcohol or drug abuse patient.[facility] the event this information is protected by the Federal Confidentiality of Alcohol and Drug Abuse Patient Records regulations: The Federal rules restrict any use of the information to criminally investigate or prosecute any alcohol or drug abuse patient.[facility] the event this information is protected by the Federal Confidentiality of Alcohol and Drug Abuse Patient Records regulations: The Federal rules restrict any use of the information to criminally investigate or prosecute any alcohol or drug abuse patient.[facility] the event this information is protected by the Federal Confidentiality of Alcohol and Drug Abuse Patient Records regulations: The Federal rules restrict any use of the information to criminally investigate or prosecute any alcohol or drug abuse patient.[facility] the event this information is protected by the Federal Confidentiality of Alcohol and Drug Abuse Patient Records regulations: The Federal rules restrict any use of the information to criminally investigate or prosecute any alcohol or drug abuse patient.[facility] Reason for Visit (unrecogniz ed section and content) Reason Comments DBS MARIA G message Reason Comments Pre-Op Visit Reason Comments Results Reason Comments DBS problem Reason Comments New Patient Consult Specialty Diagnoses / Procedures Referred By Contac t Referred To Contact Neurology Diagnoses Weakness Procedures CONSULT TO NEUROLOGY OFFICE/OUTPATIENT [facility] 60-74 MINUTES Shane Parham PA-C [address] [place] [address] Referral ID Status Reason Start Date Expiration Date V isits Requested Visits Authorized [id number] Closed PCP Requested Referral 09/19/2023 09/18/2024 1 1 Specialty Diagnoses / Procedures Referred By Contac t Referred To Contact Diagnoses Syncope and collapse Procedures Tilt table Lemuel Rodriguez MD [id number] [place] [address] Referral ID Status Reason Start Date Expiration Date V isits Requested Visits Authorized [id number] Authorized 11/04/2023 11/03/2024 1 1 Care Teams (unrecognized sec tion and content) Mink Rancher Relationship Specialty Start Date End Date Luis Mccormick MD PCP - General Family Practice 07/15/16 Mink Rancher Relationship Specialty Start Date End Date Luis Mccormick MD [address] [place] [address] PCP - General Family Practice 07/15/16 Saúl Lunsford MD [address] [facility] [place] [phone] Cardiology 01/21/22 Mink Rancher Relationship Specialty Start Date End Date Luis Mccormick MD [address] [facility] [place] [address] PCP - General Family Practice 07/15/16 [facility] [address] [facility] [place] [address] Cardiology 01/21/22 Mink Rancher Relationship Specialty Start Date End Date Luis Mccormick MD [address] [place] [address] PCP - General Family Practice 07/15/16 Saúl Lunsford MD [address] [facility] [place] [address] Cardiology 01/21/22 Mink Rancher Relationship Specialty Start Date End Date Luis Mccormick MD [address] [facility] [place] [address] PCP - General Family Practice 07/15/16 Saúl Lunsford MD [address] [facility] [address] Cardiology 01/21/22 Mink Rancher Relationship Specialty Start Date End Date Luis Mccormick MD PCP - General Family Medicine 07/15/16 Saúl Lunsford MD [address] [facility] [phone] Cardiology 01/21/22 Mink Rancher Relationship Specialty Start Date End Date Luis Mccormick MD PCP - General Family Medicine 07/15/16 Saúl Lunsford MD [address] [facility] [place] [phone] Cardiology 01/21/22 Mink Rancher Relationship Specialty Start Date End Date Luis Mccormick MD PCP - General Family Medicine 07/15/16 Saúl Lunsford MD [address] [facility] [place] [phone] Cardiology 01/21/22 Mink Rancher Relationship Specialty Start Date End Date Luis Mccormick MD [address] [place] [address] PCP - General Family Medicine 08/11/18 FOR RECORDS PERTAINING TO PATIENTS WHO ARE [...] BE BASED ON THE PRIMARY CLINICAL RECORDS. [employer] [facility]. provides no warranty or guarantee of the accuracy or completeness of information in this document.
== END 2023-11-27 08:08 | disposition home or self-care (01) ==
PROVIDERS: PCP Family Medicine; Visit Provider Nurse Practitioner
DX: M54.16 Radiculopathy, lumbar region (principal); M53.3 Sacrococcygeal disorders, not elsewhere classified; Z79.01 Long term (current) use of anticoagulants; Z79.891 Long term (current) use of opiate analgesic; G89.4 Chronic pain syndrome
CPT/HCPCS: G0463

== ENCOUNTER 2023-12-05 03:29 | Outpatient (RCR) | payer MEDICARE, SELFPAY | END 2024-01-02 14:09 | disposition home or self-care (01) | LOC: MM 03:29 | PROVIDERS: PCP Family Medicine; Visit Provider Internal Medicine | DX: Z51.81 Encounter for therapeutic drug level monitoring (principal); Z79.01 Long term (current) use of anticoagulants; I82.409 Acute embolism and thrombosis of unspecified deep veins of unspecified lower extremity | CPT/HCPCS: 85610; G0463 ==

== ENCOUNTER 2024-01-05 00:24 | Outpatient (RCR) | payer MEDICARE, SELFPAY | END 2024-02-03 18:00 | disposition home or self-care (01) | LOC: MM 00:24 | PROVIDERS: PCP Family Medicine; Visit Provider Internal Medicine | DX: Z51.81 Encounter for therapeutic drug level monitoring (principal); Z79.01 Long term (current) use of anticoagulants; I82.409 Acute embolism and thrombosis of unspecified deep veins of unspecified lower extremity ==

== ENCOUNTER 2024-01-27 09:46 | Outpatient (OUT) | payer MEDICARE, SELFPAY ==
[2024-01-27 11:41] LABS: Anion Gap 12.5; BUN Creatinine Ratio 18.1; Calcium 9.2 mg/dL (8.5-10.1); Carbon Dioxide 29.3 mmol/L (21.0-32.0); Chloride 109 mmol/L (98-107); Estimated GFR (African America 43 (>=60); Estimated GFR (Non-African Ame 35 (>=60); Glucose 192 mg/dL (74-106); Potassium 3.8 mmol/L (3.5-5.1); Sodium 147 mmol/L (136-145)
== END 2024-01-27 09:47 | disposition home or self-care (01) ==
LOC: LAB 09:48
PROVIDERS: PCP Family Medicine; Visit Provider Nurse Practitioner Family
DX: I50.33 Acute on chronic diastolic (congestive) heart failure (principal)
CPT/HCPCS: 36415; 80048; 83880

== ENCOUNTER 2024-02-04 00:23 | Outpatient (RCR) | payer MEDICARE, SELFPAY | END 2024-03-05 11:20 | disposition home or self-care (01) | LOC: MM 00:23 | PROVIDERS: PCP Family Medicine; Visit Provider Internal Medicine | DX: Z51.81 Encounter for therapeutic drug level monitoring (principal); Z79.01 Long term (current) use of anticoagulants; I82.409 Acute embolism and thrombosis of unspecified deep veins of unspecified lower extremity ==

== ENCOUNTER 2024-02-23 07:47 | Outpatient (OUT) | payer MEDICAID, SELFPAY ==
--- NOTE | 2024-02-23 07:56 | US_ITS ---
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 FINDINGS: REGION: Bilateral lower extremities THROMBI: None. COMPRESSIBILITY: Normal compressibility. FLOW: Normal waveform and antegrade flow between 5 and 20 cm/s. OTHER: Subcutaneous edema within lower leg bilaterally. US/US venous doppler LE BI IMPRESSION: 1. No deep vein thrombus within the right or left lower extremity. Electronically authenticated by: ROCK AVELAR Date: 02/23/2024 10:43
--- OUTSIDE RECORDS SUMMARY | 2024-02-23 08:07 | XMS_ITS | CCD ---
Author Organization [facility] Care Team Providers Care Information Receptionist Name Role Phone Say Mccormick MD Primary Care Provider [phone] Say Mccormick MD Primary Care Provider [phone] Jonn GEORGE, suzanne Unavailable Sanjay Dooley Unavailable JESUS RUSS Attending Unavailable JESUS RUSS Admitting Unavailable SELF, REFERRED Referring Unavailable SAY MCCORMICK Primary Care Unavailable AMY REMY Surgeon Unavailable [place] Procedure Practitioner Unavailab le MI Procedure Practitioner Unavailab DAVON Rivera Surgeon Unavailable DR SAY REECE Admitting Unavailable DR SAY REECE Primary Care Unavailable DR SAY REECE Consulting Unavailable DR SAY REECE Attending Unavailable VALENTINO, DR ROCK Das Consulting Unavailable CHRISTINA, PRANAV Attending Unavailable MEÑO VASQUEZISSA Admitting Unavailable DR SAY REECE Primary Care Unavailable PRANAV VASQUEZ Consulting Unavailable NOEMÍ DEWEYIKH H Attending Unavailable JODIE HURST Primary Care Unavailable MACO, CARMICHAEL H Admitting Unavailable SOFYA HIDALGO Attending Unavailable SOFYA HIDALGO Admitting Unavailable DR SAY REECE Primary Care Unavailable ALISA HOLMAN Consulting Unavailable SOFYA HIDALGO Consulting Unavailable LOS BAIRES Consulting Unavailable MEÑO HIDALGOINDA Admitting Unavailable DR SAY REECE Primary Care Unavailable DR ROCK AVELAR Consulting Unavailable SOFYA HIDALGO Attending Unavailable BERRY, SOFYA Consulting Unavailable FASTAN, CARMICHAEL H Attending Unavailable MACO, CARMICHAEL H Admitting Unavailable DR ASY REECE Primary Care Unavailable ARIS, JODIE Admitting Unavailable ARIS, JODIE Primary Care Unavailable ARIS, JODIE Attending Unavailable FAWWAD, CARMICHAEL H Admitting Unavailable HOY ., DR SMITH Primary Care Unavailable FAWWAD, CARMICHAEL H Attending Unavailable FAWWAD, ACRMICHAEL H Admitting Unavailable HOY ., DR SMITH [...] Care Unavailable FAWWAD, CARMICHAEL H Admitting Unavailable DIOGENES RODRIGUEZ Attending Unavailable DIOGENES RODRIGUEZ Admitting Unavailable HOY ., DR SMITH Primary Care Unavailable DIOGENES RODRIGUEZ Consulting Unavailable FAWWAD, CARMICHAEL H Attending Unavailable FAWWAD, CARMICHAEL H Admitting Unavailable HOY ., DR SMITH Primary Care Unavailable DR ROCK AVELAR Consulting Unavailable ARIS, JODIE Admitting Unavailable ARIS, JODIE Primary Care Unavailable ARIS, JODIE Attending Unavailable ARIS, JODIE Consulting Unavailable SURI BANDA Attending Unavailable VERONIKA, SURI Admitting Unavailable ARIS, JODIE Primary Care Unavailable SURI BANDA Consulting Unavailable Say Mccormick MD Primary Care Provider Jonn GEORGE, Saúl Kovacs Unavailable [phone] Marlena GEORGE, Ramon Morales Attending Unavailable SAY MCCORMICK Primary Care Unavailable HOY, SAY M Referring Unavailable HOY, SAY M Primary Care Unavailable HOY, SAY M Referring Unavailable HOY, SAY M Primary Care Unavailable HOY, SAY M Referring Unavailable HOY, SAY M Primary Care Unavailable HOY, SAY M Primary Care Unavailable HENSHANE GONZALEZ Referring Unavailable HOY, SAY M Primary Care Unavailable OBED FLORIAN Attending Unavailable SHANE PARHAM Referring Unavailable HOY, SAY M Primary Care Unavailable HENLISA, SHANE L Referring Unavailable HOY, SAY M Primary Care Unavailable SHANE PARHAM Attending Unavailable Say Mccormick MD Primary Care Provider [phone] YUDITH MARTINEZ Referring Unavailable HOY, SAY M Primary Care Unavailable DIOGENES RODRIGUEZ Referring Unavailable HOY, SAY M Primary Care Unavailable HOY, SAY M Primary Care Unavailable CHARLEE ARCE Referring Unavailable HOY, SAY M Primary Care Unavailable SEVERIANO MORENO Consulting Unavailable JACKIE RIVAS Admitting Unavailable LORI LEBLANC Attending Unavailable CHARO SLAUGHTER Consulting Unavailable MARLON BARLOW Consulting Unavailable JEFFERY CHRISTINE Consulting Unavailable YANCY CERVANTES Attending Unavailab le JULIANY, SAY M Referring Unavailable YANCY CERVANTES Referring Unavailab YANCY Dimas Referring Unavailab DIOGENES Howe Attending Unavailable SOFYA HIDALGO Attending Unavailable SURI BANDA Attending Unavailable DEEPA DOYLE Referring Unavailable DIOGENES RODRIGUEZ Referring Unavailable SURI BANDA Attending Unavailable SURI BANDA Attending Unavailable Allergies Allergy Classification Reported Allergen(s) Allergy Type Date of Onset Reaction(s) Facility (9 sources) beta-Blocking agent; Translations: [BETA-BLOCKERS (BETA-ADRENERGIC BLOCKING AGTS)] Drug Allergy 07-24-20 11 Itching, Other: See Comments [facility] (15 sources) diazePAM; Translations: [DIAZEPAM] Drug Allergy 03-03-20 08 Unknown [facility] (17 sources) gabapentin; Translations: [GABAPENTIN] Drug Allergy 11-25-19 09 Other: See Comments, Unknown [facility] (14 sources) hydrALAZINE; Translations: [HYDRALAZINE] Drug Allergy 05-19-20 13 Unknown [facility] (3 sources) Adrenergic Beta-Antagonists Drug allergy Unknown [employer] Other (2 sources) Adrenergic Beta-Antagonists Drug allergy (disorder) 05-29-20 16 [facility] (4 sources) diazePAM Drug Allergy 05-19-20 13 [facility] (1 source) gabapentin Drug Allergy 01-23-20 19 [facility] (1 source) gabapentin Drug Allergy 05-29-20 16 [facility] (5 sources) beta-Blocking agent Drug Allergy 07-24-20 11 Itching, Other: See Comments [facility] (2 sources) Neuromuscular Blocking Agents Propensity to adverse reactions to drug 05-19-20 13 [employer] NEGATED: Highlighted row has been ruled out! (2 sources) Other Propensity to adverse reactions 07-29-20 13 Nausea And Vomiting [employer] Medications Current Medications Medication Drug Class(es) Dates Sig (Normalized) Sig (Original) Acetaminophen (1 source) Start: 11-29-2023 acetaminophen (TYLENOL) tablet 650 mg amLODIPine 5 mg oral tablet (2 sources) [...] Active candesartan cilexetil 8 mg oral tablet (14 sources) Angiotensin 2 Receptor Neema take 1 tablet by mouth once daily candesartan (ATACAND) 8 MG tablet Take 1 tablet by mouth daily 0 Active Comment on above: Take 8 mg by mouth o nce daily. cholecalciferol 0.025 mg oral tablet (3 sources) Vitamin D Start: 11-30-2023 Vitamin D (CHOLECALCIFEROL) tablet 5,000 Units End: 12-02-2023 take 1 capsule by mouth once daily Cholecalciferol (VITAMIN D3) 50 MCG (1999 UT) CAPS Take 1 capsule by mouth daily 0 12/02/2023 Discontinued (LIST CLEANUP) cloNIDine hydrochloride 0.1 mg oral tablet (19 sources) Central alpha-2 Adrenergic Agonist Start: 12-05-2023 cloNIDine (CATAPRES) tablet 0.2 mg Start: 12-02-2023 End: 12-05-2023 take 1 tablet by mouth twice daily cloNIDine (CATAPRES) 0.1 MG tablet Take 1 tablet by mouth 2 times daily 60 tablet 3 12/04/2023 Active Start: 12-01-2023 End: 12-02-2023 cloNIDine (CATAPRES) tablet 0.2 mg Start: 11-30-2023 End: 12-01-2023 cloNIDine (CATAPRES) tablet 0.1 mg End: 12-02-2023 take 0.5 tablet by mouth twice daily cloNIDine (CATAPRES) 0.1 MG tablet Take 0.5 tablets by mouth 2 times daily 0 12/02/2023 Discontinued (LIST CLEANUP) take 1 tablet by kristen th twice daily, then take 0.2 tablet by mouth in the morning, then take 0.1 tablet by mouth in the evening cloNIDine 0.2 mg tablet Take 0.2 mg by mouth twice daily. 0.2 in AM, 0.1 in PM 0 Active take 1 tablet by kristen th every eight hours cloNIDine HCl 0.2 MG 1 tablet Orally THREE TIMES A DAY Active Comment on above: Take 0.2 mg by mouth twice daily. Take 0.2 mg by mouth twice daily. 0.2 in AM, 0.1 in PM cyclobenzaprine hydrochloride 10 mg oral tablet (1 source) Muscle Relaxant Start: 2023 cyclobenzaprine (FLEXERIL) tablet 10 mg DULoxetine 20 mg delayed release oral capsule (2 sources) Serotonin and Norepinephrine Reuptake Inhibitor Start: 2023 take 1 capsule by mouth once daily DULoxetine (CYMBALTA) 20 MG extended release capsule Take 1 capsule by mouth daily 30 capsule 3 12/05/2023 Active glucagon (rdna) 1 mg injection (1 source) Antihypoglycemic Agent Start: 2023 glucagon (rDNA) injection 1 mg 1000 ml glucose 100 mg/ml injection (4 sources) Start: 2023 dextrose 10 % infusion Start: 11-30-2023 dextrose bolus 10% 125 mL Start: 11-30-2023 glucose chewab le tablet 16 g Start: 11-30-2023 End: 11-30-2023 dextrose 50 % IV solution insulin glargine 100 unt/ml injectable solution (1 source) Insulin Analog Start: 12-01-2023 insulin glargine (LANTUS) injection vial 2 Units insulin lispro 100 unt/ml injectable solution (2 sources) Insulin Analog Start: 11-30-2023 insulin lispro (HUMALOG) injection vial 0-4 Units labetalol hydrochloride 5 mg/ml injectable solution (1 source) beta-Adrenergic Neema Start: 11-30-2023 labetalol (NORMODYNE;TRANDAT E) injection 10 mg LEVEMIR FLEXTOUCH 100 UNIT/ ML (3 sources) LEVEMIR FLEXTOUC H 100 UNIT/ ML as directed Subcutaneous 35 UNITS TWICE A DAY Active lidocaine 0.05 mg/mg medicated patch (3 sources) Antiarrhythmic, Amide Local Anesthetic Start: 10-27-2022 apply 1 dose transdermal route every twenty-four hours lidocaine (LIDODERM) 5 % Place 1 patch onto the skin every 24 hours 0 10/27/2022 Active Comment on above: Apply 1 Patch as dir ected every 24 hours. 50 ml magnesium sulfate 40 mg/ml injection (1 source) Start: 11-29-2023 2,000 mg, IntraVENous, at 25 mL/hr, Administer over 2 Hours, PRN, Other, Magnesium Replacement, Starting on 11/29/23 at 2012 [facility] Replacement Action 1.4-1. 6 mg/dL & amp;nbsp; 2,000 mg Total Dose Given as 1,000 mg IVPB x 2 doses or 2,000 mg IVPB x 1 dose &n bsp; &n bsp; &n bsp; &n bsp; &n bsp; &a mp;nbsp;1.0-1.3 mg/dL 4,000 mg Total Dose &n bsp; &n bsp; &n bsp; &n bsp; &n bsp; Given as 1,000 mg IVPB x 4 doses or 2,000 mg IVPB x 2 doses L ess than 1.0 mg/dL CALL PHYSICIAN and give &n bsp; &n bsp; &n bsp; &n bsp; &n bsp; 4,000 mg Total Dose &n bsp; &n bsp; &n bsp; &n bsp; &n bsp; Given as 1,000 mg IVPB x 4 doses or 2,000 mg IVPB x 2 doses & nbsp;Infuse at 1,000 mg/hr Repeat Mag level next AM Protocol not for use in Patients with CrCl less than 30ml/min 1 ml morphine sulfate 2 mg/ml cartridge (3 sources) Opioid Agonist Start: 11-30-2023 End: 12-07-2023 morphine (PF) injection 2 mg mupirocin 0.02 mg/mg topical ointment (1 source) [...] days. Apply to each nostril via Q-tip ondansetron (ZOFRAN-ODT) disintegrating tablet 4 mg (1 source) Start: 11-29-2023 ondansetron (ZOFRAN-ODT) disintegrating tablet 4 mg 24 hr oxybutynin chloride 10 mg extended release oral tablet (14 sources) Cholinergic Muscarinic Antagonist Start: 11-24-2021 take 1 tablet by mouth once daily oxybutynin (DITROPAN-XL) 10 MG extended release tablet TAKE 1 TABLET BY MOUTH EVERY DAY 0 11/24/2021 Active Comment on above: Take 10 mg by mouth once daily. Potassium Chloride (15 sources) Start: 11-29-2023 potassium chloride (KLOR-CON M) extended release tablet 40 mEq Start: 11-24-2021 take 1 tablet by kristen th once daily potassium chloride (KLOR-CON M) 20 [...] 1 tablet by kristen th once daily. 24 hr rivastigmine 0.192 mg/hr transdermal system (2 sources) Start: apply 1 dose transdermal route once daily rivastigmine (EXELON) 4.6 MG/24HR Place 1 patch onto the skin daily 30 patch 3 12/05/2023 Active Start: 12-03-2023 rivastigmine ( EXELON) 4.6 MG/24HR 1 patch 1000 ml sodium chloride 9 mg/ml injection (3 sources) Start: 11-29-2023 IntraVENous, a t 5-250 mL/hr, PRN, if patient receiving piggyback infusions and maintenance fluids are not ordered OR KVO fluids to protect IV site / prevent frequent line interruptions/ long duration, Starting on 11/29/23 at 2011 For piggyback infusion, administer at same rate as piggyback for a total of 25 mL. Enter 25 mL into dose field and piggyback rate into rate field of order. If piggyback is infusing at a rate less than 100 mL/hr, enter 25 mL into dose field and 100 mL/hr into rate field of order. For KVO fluids, enter rate of 20 mL/hr or less into rate field of order. Start: 11-29-2023 take 1 dose intraven ously twice daily 5-40 mL, IntraVENous, EVERY 12 HOURS SCHEDULED (2 times per day), First dose on 11/29/23 at 2100, Until Discontinued For Line Patency: Peripheral IV = 5 mL; Midline or Central Line = 10 mL/lumen. If following IV push medication, administer flush at same rate as the IV push. Flush volume is determined by type of infusion therapy being given. For non-viscous solutions use: Peripheral IV = 5 mL Midline or Central Line = 10 mL/lumen For viscous solutions (i.e. blood components, parenteral nutrition, contrast media, or after obtaining blood sample) use: Peripheral IV = 10 mL Midline or Central Line = 20 mL/lumen Start: 11-29-2023 take 5-40 mL intrave nously once as needed 5-40 mL, IntraVENous, PRN, Starting on 11/29/23 at 2012, Until Discontinued, Line Care, After every IV line use For Line Patency: Peripheral IV = 5 mL; Midline or Central Line = 10 mL/lumen. If following IV push medication, administer flush at same rate as the IV push. Flush volume is determined by type of infusion therapy being given. For non-viscous solutions use: Peripheral IV = 5 mL Midline or Central Line = 10 mL/lumen For viscous solutions (i.e. blood components, parenteral nutrition, contrast media, or after obtaining blood sample) use: Peripheral IV = 10 mL Midline or Central Line = 20 mL/lumen spironolactone 100 mg oral tablet (2 sources) Aldosterone Antagonist End: 01-21-2022 take 1 tablet by mouth once daily spironolactone (ALDACTONE) 100 mg tablet spironolactone 100 mg tablet take 1 tablet by mouth once daily for 4 days 0 01/21/2022 Discontinued Comment on above: spironolactone 100 m g tablet take 1 tablet by mouth once daily for 4 days valsartan 160 mg oral tablet (3 sources) Angiotensin 2 Receptor Neema Start: 12-01-2023 valsartan (DIOVAN) tablet 160 mg Start: 11-30-2023 End: 11-30-2023 valsartan (DIOVAN) tablet 80 mg warfarin sodium 10 mg oral tablet (20 sources) Vitamin K Antagonist Start: 12-01-2023 warfarin (COUMADIN) tablet 15 mg Start: 11-30-2023 warfarin (COUM ENZO) tablet 10 mg Start: 10-20-2018 warfarin (COUM ENZO) 10 mg tablet Take 1 tablet by [...] 0 Active take 2 tablets by mo [facility] once daily Warfarin 5mg 5 mg 2 TABLETS orally ONCE A DAY Active Comment on above: Take 1 tablet by kristen every 48 hours. Take 7.5mg one day, then 10mg the other day warfarin placeholder: dosing by pharmacy (1 source) Start: 11-30-2023 warfarin placeholder: dosing by pharmacy Completed/Discontinued Medications Medication Drug Class(es) Dates Sig (Normalized) Sig (Original) acetaminophen 325 mg / HYDROcodone bitartrate 5 mg oral tablet (4 sources) Opioid Agonist Start: 11-30-2023 End: 11-29-2023 HYDROcodone-acetam inophen (NORCO) 5-325 MG per tablet 1 tablet Start: 01-30-2022 take 1 tablet by kristen every eight hours as needed for pain HYDROcodone-acetaminophen (NORCO) 5-325 mg per tablet Indications: Post-op pain Take 1 tablet by mouth every 8 hours as needed for pain. 9 tablet 0 01/30/2022 Active Comment on above: Take 1 tablet by kristen every 8 hours as needed for pain. 200 actuat albuterol 0.09 mg/actuat dry powder inhaler (14 sources) beta2-Adrenergic Agonist End: take 1 puff(s) by inhalation every four hours as needed albuterol sulfate (PROAIR RESPICLICK) 108 (90 Base) MCG/ACT aerosol powder inhalation Inhale 1 puff into the lungs every 4 hours as needed 0 12/02/2023 Discontinued (LIST CLEANUP) albuterol HFA (P ROVENTIL HFA, VENTOLIN HFA) [...] Comment on above: Take by mouth. atorvastatin 40 mg oral tablet (15 sources) HMG-CoA Reductase Inhibitor Start: 11-08-19 20 take 1 tablet by mouth once daily atorvastatin (LIPITOR) 10 mg tablet Take 1 tablet by mouth once daily. 90 tablet 1 11/08/2019 Active Start: 09-26-2015 take 40 mg by mouth once daily 40 mg, Oral, DAILY, First dose on 11/30/23 at 2100, Until Discontinued Comment on above: [facility] car[facility]opa 10 mg / levodopa [...] on above: Take 1 capsule by mo [facility] four times daily. cetirizine hydrochloride 10 mg oral tablet (6 sources) Histamine-1 Receptor Antagonist Start: 04-01-20 23 take 1 tablet by mouth once daily cetirizine (ZYRTEC) 10 mg tablet Take 1 tablet by mouth once daily. 0 04/01/2023 Active Comment on above: Take 1 tablet by kristen once daily. empagliflozin 10 mg oral tablet (3 sources) Sodium-Glucose Cotransporter 2 Inhibitor Start: 03-05-20 End: 12-02-19 take 1 tablet by mouth once JARDIANCE 10 mg tablet Take 1 tablet by mouth every afternoon. 0 08/28/2023 Active Comment on above: Take 1 tablet by kristen th every afternoon. furosemide 40 mg oral tablet (14 sources) Loop Diuretic Start: 11-08-19 End: 12-02-19 take 1 tablet by mouth twice daily furosemide (LASIX) 40 MG tablet TAKE 1 TABLET BY MOUTH TWICE A DAY 0 11/24/2021 12/02/2023 Discontinued (LIST CLEANUP) Comment on above: Take 1 tablet by kristen twice daily. 250 ml glucose 50 mg/ml / sodium chloride 4.5 mg/ml injection (1 source) Start: 11-30-19 End: 11-30-19 dextrose 5 % and 0.45 % sodium chloride infusion hyoscyamine sulfate 0.125 mg sublingual tablet (3 sources) take 1 tablet under the tongue four times daily as needed Hyoscyamine Sulfate SL 0.125 MG 1 tablet under the tongue and allow to dissolve as needed Sublingual FOUR TIMES A DAY PRN Not-Taking indomethacin 50 mg oral capsule (9 sources) Nonsteroidal Anti-inflammatory Drug Start: 05-12-20 End: 12-02-19 take 1 capsule by mouth three times daily as needed for pain indomethacin (INDOCIN) 50 MG capsule TAKE 1 CAPSULE BY MOUTH THREE TIMES A DAY NEEDED FOR PAIN WITH FOOD OR MILK for 30 0 05/12/2023 12/02/2023 Discontinued (LIST CLEANUP) take 1 capsule by mo [facility] three times daily for pain indomethacin (INDOCIN) 50 mg capsule indomethacin 50 mg capsule take 1 capsule by mouth three times a day if needed for pain 0 Active Comment on above: indomethacin 50 mg c apsule take 1 capsule by mouth three times a day if needed for pain TAKE 1 CAPSULE BY MO UTH THREE TIMES A DAY NEEDED FOR PAIN WITH FOOD OR MILK 30 3 ml insulin degludec 100 unt/ml pen injector (3 sources) Insulin Analog Start: 11-05-2023 TRESIBA FLEXTOUCH U-100 100 unit/mL (3 mL) injection pen Insulin Degludec (TRESIBA FLEXTOUCH) 200 UNIT/ML SOPN Inject 60 Units into the skin in the morning and at bedtime 0 Active Insulin Degludec (TRESIBA FLEXTOUCH) 200 UNIT/ML SOPN [...] Not-Taking metFORMIN hydrochloride 500 mg oral tablet (4 sources) Biguanide Start: 024 take 500 mg by mouth twice daily at mealtime 500 mg, Oral, 2 TIMES DAILY WITH MEALS, First dose on 11/30/23 at 0800, Until Discontinued Start: 04-01-2023 End: 12-02-2023 take 1 tablet by mouth twice daily metFORMIN (GLUCOPHAGE) 500 mg tablet Take 1 tablet by mouth two times a day. 0 04/01/2023 Active Comment on above: Take 1 tablet by kristen th two times a day. montelukast 10 mg oral tablet (15 sources) Leukotriene Receptor Antagonist Start: 11-24-19 take 10 mg by mouth once daily 10 mg, Oral, DAILY, First dose on 11/30/23 at 0900, Until Discontinued Comment on above: Take 10 mg by mouth daily at bedtime. NIFEdipine 90 mg osmotic 24 hr extended release oral tablet (15 sources) Dihydropyridine Calcium Channel Neema Start: 01-14-20 take 90 mg by mouth once daily 90 mg, Oral, DAILY, First dose on 11/30/23 at 0900, Until Discontinued Do not crush or break. take 1 tablet by kristen th every twenty-four hours NIFEdipine ER 90 MG 1 tablet on an empty stomach Orally Once a day Active Comment on above: nifedipine ER 90 mg tablet,extended release 24 hr take 1 tablet by mouth once daily pantoprazole 40 mg delayed release oral tablet (15 sources) Proton Pump Inhibitor Start: 11-29-19 22 take 40 mg by mouth once daily 40 mg, Oral, DAILY, First dose on 11/30/23 at 0900, Until Discontinued Do not crush or break. Comment on above: Take 40 mg by mouth once daily. polyethylene glycol [id number] [id number] mg powder for oral solution (1 source) Osmotic Laxative Start: 11-29-19 24 17 g, Oral, DAILY PRN, Starting on 11/29/23 at 2012, Until Discontinued, Constipation First line therapy for constipation tiotropium 0.018 mg inhalation powder (12 sources) [...] inhalation capsules topiramate 50 mg oral tablet (15 sources) Start: 4 take 1 tablet by mouth twice daily 100 mg, Oral, 2 TIMES DAILY, First dose on 11/30/23 at 0230, Until Discontinued It is not recommended to crush, break, or chew immediate release tablets due to bitter taste. Start: 08-15-2015 take 2 tablets by mo uth twice daily, then take 2 tablets by mouth twice daily topiramate (TOPAMAX) 50 MG tablet Indications: Medication refill Take 2 tablets by mouth 2 times daily take 2 tablets by mouth twice a day 120 tablet 3 08/15/2015 Active Comment on above: Take 100 mg by mouth twice daily. traMADol hydrochloride 50 mg oral tablet (14 sources) Opioid Agonist Start: 6 End: 4 take 1 tablet by mouth every six hours as needed for pain traMADol (ULTRAM) 50 MG tablet Take 1 tablet by mouth every 6 hours as needed for Pain 120 tablet 0 05/16/2016 12/02/2023 Discontinued (LIST CLEANUP) take 2 tablets by mouth twice da [...] 1 Puff as ins tructed once daily. 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 artery] Onset: 3 Chronic Asthma (2 sources) Asthma; Translations: [Unspecified asthma, uncomplicated] 12-01-2014 Chronic Blindness and vision defects (1 source) Diplopia; Translations: [Diplopia] Onset: 4 Episodic Cardiac and circulatory congenital anomalies (2 sources) Congenital heart disease; Translations: [Congenital malformation of heart, unspecified] 12-01-2014 Chronic Cardiac dysrhythmias (2 sources) Palpitations; Translations: [Palpitations] Onset: 4 Episodic Chronic kidney disease (16 sources) Chronic kidney disease stage 3; Translations: [Stage 3 chronic kidney disease, unspecified whether stage 3a or 3b CKD (HCC)] Onset: 4 Chronic Chronic kidney disease (5 sources) Chronic kidney disease; Translations: [Chronic kidney disease, stage 3 unspecified] Onset: 2 Resolved: 2 Chronic obstructive pulmonary disease and bronchiectasis (13 sources) Chronic obstructive lung disease; Translations: [Chronic obstructive pulmonary disease, unspecified] Onset: 4 Chronic Congestive heart failure; nonhypertensive (20 sources) Congestive heart failure; Translations: [Heart failure, unspecified] Onset: 2 Chronic Coronary atherosclerosis and other heart disease (2 sources) Angina pectoris, unspecified; Translations: [Angina pectoris, unspecified] Onset: 3 Chronic Diabetes mellitus with complications (17 sources) Type 2 diabetes mellitus; Translations: [Type 2 diabetes mellitus with other specified complication] Onset: 4 Resolved: 2 Chronic Diabetes mellitus without complication (11 sources) Diabetes mellitus; Translations: [Type 2 diabetes mellitus without complications] 11-25-2008 Chronic Disorders of lipid metabolism (6 sources) Pure hypercholesterolemia; Translations: [Pure hypercholesterolemia, unspecified] Onset: 2 Resolved: 2 Chronic E Codes: Fall (2 sources) Unspecified fall, sequela; Translations: [Unspecified fall, sequela] Onset: 4 Episodic Esophageal disorders (13 sources) Gastroesophageal reflux disease; Translations: [Gastro-esophageal reflux disease without esophagitis] 11-25-2008 Chronic Essential hypertension (20 sources) Essential hypertension; Translations: [Essential (primary) hypertension] Onset: 4 Resolved: 2 07-18-2016 Chronic Gout and other crystal arthropathies (2 sources) Gout; Translations: [Gout, unspecified] 12-01-2014 Chronic Hypertension with complications and secondary hypertension (6 sources) Hypertensive chronic kidney disease with stage 1 through stage 4 chronic kidney disease, or unspecified chronic kidney disease; Translations: [HTN CKD W/STAGE 1-4 CKD/UNS CKD] Onset: 2 Chronic Malaise and fatigue (8 sources) Other fatigue; Translations: [Asthenia] Onset: 4 11-06-2023 Episodic Mood disorders (11 sources) Recurrent major depression in partial remission; Translations: [Major depressive disorder, recurrent, in partial remission] Onset: 0 11-16-2019 Chronic Nonspecific chest pain (3 sources) Chest pain, unspecified; Translations: [Other chest pain] Onset: 2 Episodic Nutritional deficiencies (1 source) Vitamin D deficiency, unspecified; Translations: [Vitamin D deficiency, unspecified] Onset: 4 Chronic Osteoarthritis (4 sources) Bilateral osteoarthritis of knees; Translations: [Bilateral primary osteoarthritis of knee] Onset: 4 08-18-2014 Chronic Other aftercare (5 sources) Encounter for therapeutic drug level monitoring; Translations: [ENC THERAPEUTC DRUG LEVL MONITORING] Onset: 3 Episodic Other aftercare (1 source) residential (current) use of anticoagulants; Translations: [FASHION STYLIST CURRNT USE ANTICOAGULANTS] Onset: 3 Episodic Other aftercare (1 source) residential (current) use of insulin; Translations: [buttermaker continuous churn (current) use of insulin] Onset: 4 Episodic Other and ill-defined cerebrovascular disease (10 sources) Cerebrovascular disease; Translations: [Other cerebrovascular disease] 11-25-2008 Chronic Other circulatory disease (2 sources) Presence of other cardiac implants and grafts; Translations: [Presence of other cardiac implants and grafts] Onset: 4 Chronic Other connective tissue disease (1 source) Other symptoms and signs involving the musculoskeletal system; Translations: [Other symptoms and signs involving the musculoskeletal system] Onset: 4 Episodic Other connective tissue disease (1 source) Facial weakness; Translations: [Facial weakness] Onset: 4 Episodic Other connective tissue disease (2 sources) Recurrent falls ; Translations: [Repeated falls] Onset: 4 11-30-2023 Episodic Other diseases of kidney and ureters (2 sources) Kidney disease; Translations: [Disorder of kidney and ureter, unspecified] 12-01-2014 Episodic Other gastrointestinal disorders (2 sources) Irritable bowel syndrome; Translations: [Irritable bowel syndrome without diarrhea] 03-28-2014 Chronic Other gastrointestinal disorders (3 sources) Dysphagia; Translations: [Dysphagia, unspecified] Onset: 5 11-28-2014 Episodic Other hereditary and degenerative nervous system conditions (9 sources) Shuddering attacks; Translations: [Benign shuddering attacks] 11-25-2008 Chronic Other hereditary and degenerative nervous system conditions (5 sources) Essential tremor; Translations: [Essential tremor] Onset: 4 Chronic Other nervous system disorders (1 source) Carpal tunnel syndrome, right upper limb; Translations: [Carpal tunnel syndrome, right upper limb] Onset: 4 Chronic Other nervous system disorders (1 source) Lesion of ulnar nerve, right upper limb; Translations: [Lesion of ulnar nerve, right upper limb] Onset: 4 Chronic Other nervous system disorders (2 sources) Patient encounter status; Translations: [Other chronic pain] 01-20-2015 Chronic Other nervous system disorders (1 source) Polyneuropathy, unspecified; Translations: [Polyneuropathy, unspecified] Onset: 4 Chronic Other nervous system disorders (2 sources) Disorder of brain; Translations: [Encephalopathy, unspecified] Onset: 4 12-02-2023 Chronic Other nervous system disorders (2 sources) Neuropathy; Translations: [Polyneuropathy, unspecified] Onset: 4 12-03-2023 Chronic Other nervous system disorders (11 sources) Tremor; Translations: [Tremor, unspecified] Onset: 1 [...] Chronic Other nutritional; endocrine; and metabolic disorders (6 sources) Morbid obesity; Translations: [Morbid (severe) obesity due to excess calories] Onset: 4 08-18-2014 Chronic Other nutritional; endocrine; and metabolic disorders (2 sources) Obesity; Translations: [Obesity, unspecified] 03-28-2014 Chronic Other upper respiratory disease (2 sources) Tracheostomy present; Translations: [Tracheostomy status] Onset: 1 03-28-2014 Chronic Other upper respiratory disease (9 sources) Other diseases of pharynx; Translations: [Other diseases of pharynx, not elsewhere classified] 11-25-2008 Episodic Parkinson`s disease (12 sources) Parkinson's disease; Translations: [Parkinson's disease] Onset: 5 01-21-2022 Chronic Phlebitis; thrombophlebitis and thromboembolism (11 sources) 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; Translations: [Chronic embolism and thrombosis of unspecified deep veins of proximal lower extremity, bilateral] Onset: 8 08-06-2018 Chronic Phlebitis; thrombophlebitis and thromboembolism (7 sources) Acute embolism and thrombosis of unspecified deep veins of left lower extremity; Translations: [H/O: Deep vein thrombosis] Onset: 3 Episodic Residual codes; unclassified (14 sources) Obstructive sleep apnea syndrome; Translations: [Obstructive sleep apnea (adult) (pediatric)] Onset: 4 Chronic Residual codes; unclassified (1 source) Pain, unspecified; Translations: [Pain, unspecified] Onset: 4 Episodic Residual codes; unclassified (2 sources) Other specified personal risk factors, not elsewhere classified; Translations: [Other specified personal history presenting hazards to health] 12-01-2014 Episodic Residual codes; unclassified (1 source) Other amnesia; Translations: [Other amnesia] Onset: 4 Episodic Residual codes; unclassified (3 sources) Altered mental status, unspecified; Translations: [Altered mental status, unspecified] Onset: 4 Episodic Residual codes; unclassified (4 sources) Altered mental status; Translations: [Altered mental status, unspecified] Onset: 4 11-28-2023 Episodic Residual codes; unclassified (2 sources) Staring; Translations: [Transient alteration of awareness] Onset: 4 12-01-2023 Episodic Residual codes; unclassified (2 sources) Transient alteration of awareness; Translations: [Transient alteration of awareness] Onset: 4 12-01-2023 Episodic Spondylosis; intervertebral disc disorders; other back problems (12 sources) Degeneration of lumbar intervertebral disc; Translations: [Other intervertebral disc degeneration, lumbar region] Onset: 4 Resolved: 0 08-18-2014 Chronic Syncope (5 sources) Syncope and collapse; Translations: [Syncope and collapse] Onset: 4 12-01-2023 Episodic Unclassified (1 source) LOW BACK PAIN, UNSPECIFIED; Translations: [LOW BACK PAIN, UNSPECIFIED] Onset: 3 Unclassified (1 source) CONTACT W/AND (SUSP) EXPOS COVID-19; Translations: [CONTACT W/AND (SUSP) EXPOS COVID-19] Onset: 2 Unclassified (1 source) CHRN KIDNEY DISEASE STG 3 UNSP; Translations: [CHRN KIDNEY DISEASE STG 3 UNSP] Onset: 2 Unclassified (2 sources) Intentional weight loss; Translations: [Weight loss, intentional] Onset: 5 05-15-2015 Past or Other Problems Problem Classification Problem Date Documented Date Episodic/Chronic Acute and unspecified renal failure (2 sources) Acute renal failure syndrome; Translations: [Acute kidney failure, unspecified] Onset: 03-15-2014 Episodic Fluid and electrolyte disorders (11 sources) Hypervolemia; Translations: [Fluid overload, unspecified] Onset: 03-15-2014 10-08-2018 Episodic Immunizations and screening for infectious disease (3 sources) 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; Translations: [Carrier or suspected carrier of Methicillin resistant Staphylococcus aureus] Onset: 07-18-2015 Episodic Other aftercare (2 sources) Patient encounter status; Translations: [Encounter for therapeutic drug level monitoring] Onset: 01-25-2014 08-18-2014 Episodic Other circulatory disease (4 sources) Personal history of transient ischemic attack (TIA), and cerebral infarction without residual deficits; Translations: [PERS HX TIA AND CI NO RESID DEFICIT] Onset: 05-29-2022 Episodic Other connective tissue disease (2 sources) Cramp; Translations: [Cramp and spasm] Onset: 03-15-2014 Episodic Other lower respiratory disease (4 sources) Other forms of dyspnea; Translations: [OTHER FORMS OF DYSPNEA] Onset: 06-24-2022 Episodic Other lower respiratory disease (1 source) Dyspnea, unspecified; Translations: [DYSPNEA UNSPECIFIED] Onset: 05-27-2022 Episodic Other nervous system disorders (2 sources) Pill rolling; Translations: [Tremor, unspecified] Onset: 03-15-2014 [...] use] Onset: 01-21-2022 Episodic Residual codes; unclassified (2 sources) Bilateral lower limb edema; Translations: [Localized edema] Onset: 03-31-2014 03-31-2014 Episodic Spondylosis; intervertebral disc disorders; other back problems (12 sources) Low back pain; Translations: [Lumbago] Onset: 01-25-2014 11-25-2008 Episodic Results Test Name Value Interpretation Reference Range Facility Office Visiton 01-13-2024 Follow-up visit [id number] Joanie Pierre 1960 M Date Provider Department Center 01/13/2024 SOFYA MUNIZ Family History Problem Relation Age of Onset Coronary artery disease Mother Coronary artery disease Father Family Status - Relation Status Age at Mother Father Level of Service:70272 MI OFFICE/OUTPATIENT ESTABLISHED MOD MDM 30 MIN Normal [facility] Glucose,Whole Bloodon 2023 Glucose [Mass/Vol] 203 mg/dL High 75-110 [facility] Glucose [Mass/Vol] 206 mg/dL High 75-110 [facility] Glucose [Mass/Vol] 167 mg/dL High 75-110 [facility] Glucose [Mass/Vol] 137 mg/dL High 75-110 [facility] POC Glucose Fingerstickon Glucose [Mass/Vol] 203 mg/dL High 75 - 110 mg/dL [facility] Interpretation and review of laboratory results Abnormal [facility] Glucose [Mass/Vol] 206 mg/dL High 75 - 110 mg/dL [facility] Interpretation and review of laboratory results Abnormal [facility] Glucose [Mass/Vol] 167 mg/dL High 75 - 110 mg/dL [facility] Interpretation and review of laboratory results Abnormal [facility] Glucose [Mass/Vol] 137 mg/dL High 75 - 110 mg/dL [facility] Interpretation and review of laboratory results Abnormal [facility] PTon 12-08-2023 INR Coag (PPP) [Relative time] 3.3 {INR} Normal [facility] Comment on above: Result Comment: Therapeutic Range: Moderate Anticoagulant Intensity: INR = 2.0-3.0 High Anticoagulant Intensity: INR = 2.5-3.5 Performed By: #### P T #### [employer] [address] [place], [place] [id number] Turning Machine Operator: Jasbir Montalvo MD PT Coag (PPP) [Time] 32.3 s High 11.7-14.9 [facility] Comment on above: Performed By: #### P T #### [employer] [facility] [address] [place] [address] Turning Machine Operator: Jasbir Montalvo MD Protime-INRon 12-08-2023 INR Coag (PPP) [Relative time] 3.3 {INR} [facility] Comment on above: Therapeutic Range: Moderate Anticoagulant Intensity: INR = 2.0-3.0 High Anticoagulant Intensity: INR = 2.5-3.5 Interpretation and review of laboratory results Abnormal [facility] PT Coag (PPP) [Time] 32.3 s High [facility] Glucose,Whole Bloodon 2023 Glucose [Mass/Vol] 193 mg/dL High 75-110 [facility] Glucose [Mass/Vol] 154 mg/dL High 75-110 [facility] Glucose [Mass/Vol] 145 mg/dL High 75-110 [facility] Glucose [Mass/Vol] 132 mg/dL High 75-110 [facility] Hemoglobin and Hematocriton 12-07-2023 Hematocrit (Bld) [Volume fraction] 44.1 % 40.7 - 50.3 % [facility] Hemoglobin (Bld) [Mass/Vol] 14.0 g/dL 13.0 - 17.0 g/dL [facility] Hgb/Hcton 12-07-2023 Hematocrit (Bld) [Volume fraction] 44.1 % Normal 40.7-50.3 [facility] Comment on above: Performed By: #### P HO, CDP, RA, PT, SED, BMPX, FREDA, MG, LD, CRP, FEBC, B12FOL, PTT, C4, CCPAB, FERI, IOCAL, CORTI, CK, C3, REJEC #### [facility] [place], [place] [id number] Turning Machine Operator: Jasbir Montalvo MD Hemoglobin (Bld) [Mass/Vol] 14.0 g/dL Normal 13.0-17.0 [facility] Comment on above: Performed By: #### P HO, CDP, RA, PT, SED, BMPX, FREDA, MG, LD, CRP, FEBC, B12FOL, PTT, C4, CCPAB, FERI, IOCAL, CORTI, CK, C3, REJEC #### [facility] [employer] [address] [place] [id number] Turning Machine Operator: Jasbir Montalvo MD No Panel Informationon 12-06 [facility] POC Glucose Fingerstickon Glucose [Mass/Vol] 193 mg/dL High 75 - 110 mg/dL [facility] Interpretation and review of laboratory results Abnormal [facility] Glucose [Mass/Vol] 154 mg/dL High 75 - 110 mg/dL [facility] Interpretation and review of laboratory results Abnormal [facility] Glucose [Mass/Vol] 145 mg/dL High 75 - 110 mg/dL [facility] Interpretation and review of laboratory results Abnormal [facility] Glucose [Mass/Vol] 132 mg/dL High 75 - 110 mg/dL [facility] Interpretation and review of laboratory results Abnormal [facility] PTon 12-07-2023 INR Coag (PPP) [Relative time] 3.2 {INR} Normal [facility] Comment on above: Result Comment: Therapeutic Range: Moderate Anticoagulant Intensity: INR = 2.0-3.0 High Anticoagulant Intensity: INR = 2.5-3.5 Performed By: #### P HO, CDP, RA, PT, SED, BMPX, FREDA, MG, LD, CRP, FEBC, B12FOL, PTT, C4, CCPAB, FERI, IOCAL, CORTI, CK, C3, REJEC #### [facility] [employer] [address] [place] [id number] Turning Machine Operator: Jasbir Montalvo MD PT Coag (PPP) [Time] 32.1 s High 11.7-14.9 [facility] Comment on above: Performed By: #### P HO, CDP, RA, PT, SED, BMPX, FREDA, MG, LD, CRP, FEBC, B12FOL, PTT, C4, CCPAB, FERI, IOCAL, CORTI, CK, C3, REJEC #### [address] [phone] Turning Machine Operator: Jasbir Montalvo MD Platelet Counton 12-07-2023 Platelets (Bld) [#/Vol] 252 10*3/uL Normal 138-453 [facility] Comment on above: Performed By: #### P HO, CDP, RA, PT, SED, BMPX, FREDA, MG, LD, CRP, FEBC, B12FOL, PTT, C4, CCPAB, FERI, IOCAL, CORTI, CK, C3, REJEC #### [address] [id number] Turning Machine Operator: Jasbir Montalvo MD Platelets (Bld) [#/Vol] 252 10*3/uL [facility] Protime-INRon 12-07-2023 INR Coag (PPP) [Relative time] 3.2 {INR} [facility] Comment on above: Therapeutic Range: Moderate Anticoagulant Intensity: INR = 2.0-3.0 High Anticoagulant Intensity: INR = 2.5-3.5 Interpretation and review of laboratory results Abnormal [facility] PT Coag (PPP) [Time] 32.1 s High [facility] Glucose,Whole Bloodon 2023 Glucose [Mass/Vol] 155 mg/dL High 75-110 [facility] Glucose [Mass/Vol] 190 mg/dL High 75-110 [facility] Glucose [Mass/Vol] 176 mg/dL High 75-110 [facility] Glucose [Mass/Vol] 119 mg/dL High 75-110 [facility] POC Glucose Fingerstickon Glucose [Mass/Vol] 155 mg/dL High 75 - 110 mg/dL [facility] Interpretation and review of laboratory results Abnormal [facility] Glucose [Mass/Vol] 190 mg/dL High 75 - 110 mg/dL [facility] Interpretation and review of laboratory results Abnormal [facility] Glucose [Mass/Vol] 176 mg/dL High 75 - 110 mg/dL [facility] Interpretation and review of laboratory results Abnormal [facility] Glucose [Mass/Vol] 119 mg/dL High 75 - 110 mg/dL [facility] Interpretation and review of laboratory results Abnormal [facility] PTon 12-06-2023 INR Coag (PPP) [Relative time] 2.7 {INR} Normal [facility] Comment on above: Result Comment: Therapeutic Range: Moderate Anticoagulant Intensity: INR = 2.0-3.0 High Anticoagulant Intensity: INR = 2.5-3.5 Performed By: #### P HO, CDP, RA, PT, SED, BMPX, FREDA, MG, LD, CRP, FEBC, B12FOL, PTT, C4, CCPAB, FERI, IOCAL, CORTI, CK, C3, REJEC #### [employer] [address] [place] [id number] Turning Machine Operator: Jasbir Montalvo MD PT Coag (PPP) [Time] 28.0 s High 11.7-14.9 [facility] Comment on above: Performed By: #### P HO, CDP, RA, PT, SED, BMPX, FREDA, MG, LD, CRP, FEBC, B12FOL, PTT, C4, CCPAB, FERI, IOCAL, CORTI, CK, C3, REJEC #### [employer] [employer] [address] [place] [address] Turning Machine Operator: Jasbir Montalvo MD Protime-INRon 12-06-2023 INR Coag (PPP) [Relative time] 2.7 {INR} [facility] Comment on above: Therapeutic Range: Moderate Anticoagulant Intensity: INR = 2.0-3.0 High Anticoagulant Intensity: INR = 2.5-3.5 Interpretation and review of laboratory results Abnormal [facility] PT Coag (PPP) [Time] 28.0 s High [facility] XR FOOT RIGHT (2 VIEWS)on XR FOOT RIGHT (2 VIEWS) EXAMINATION: TWO XRAY VIEWS OF THE RIGHT FOOT 12/05/2023 11:54 pm COMPARISON: None. HISTORY: ORDERING SYSTEM PROVIDED HISTORY: foot pain TECHNOLOGIST PROVIDED HISTORY: foot pain FINDINGS: No fracture or dislocation. Mild osteoarthritic changes are present at the interphalangeal and intertarsal joints. Mild posterior calcaneal spurring is present at both the plantar and calcaneal aspects. Bone density is normal. There is diffuse soft tissue swelling of the foot. IMPRESSION: 1. No fracture or dislocation. 2. Mild osteoarthritic changes. 3. Diffuse soft tissue swelling. Interpreted by: Christian Baldwin MD Signed by: Christian Baldwin MD 12/06/23 Final result Normal [facility] XR Foot - right 2 Viewson 1. No fracture or dislocation. 2. Mild osteoarthritic changes. 3. Diffuse soft tissue swelling. [facility] EXAMINATION: TWO XRAY VIEWS OF THE RIGHT FOOT 12/05/2023 11:54 pm COMPARISON: None. HISTORY: ORDERING SYSTEM PROVIDED HISTORY: foot pain TECHNOLOGIST PROVIDED HISTORY: foot pain FINDINGS: No fracture or dislocation. Mild osteoarthritic changes are present at the interphalangeal and intertarsal joints. Mild posterior calcaneal spurring is present at both the plantar and calcaneal aspects. Bone density is normal. There is diffuse soft tissue swelling of the foot. [facility] Christian Baldwin MD - 12/06/2023 EXAMINATION: TWO XRAY VIEWS OF THE RIGHT FOOT 12/05/2023 11:54 pm COMPARISON: None. HISTORY: ORDERING SYSTEM PROVIDED HISTORY: foot pain TECHNOLOGIST PROVIDED HISTORY: foot pain FINDINGS: No fracture or dislocation. Mild osteoarthritic changes are present at the interphalangeal and intertarsal joints. Mild posterior calcaneal spurring is present at both the plantar and calcaneal aspects. Bone density is normal. There is diffuse soft tissue swelling of the foot. IMPRESSION: 1. No fracture or dislocation. 2. Mild osteoarthritic changes. 3. Diffuse soft tissue swelling. [facility] XR Foot - right 2 ViewsOrder ed By: Christian Baldwin on 12-06-2023 [facility] Work Phone: Glucose,Whole Bloodon 2023 Glucose [Mass/Vol] 160 mg/dL High 75-110 [facility] Glucose [Mass/Vol] 137 mg/dL High 75-110 [facility] Glucose [Mass/Vol] 189 mg/dL High 75-110 [facility] Glucose [Mass/Vol] 131 mg/dL High 75-110 [facility] Hemoglobin and Hematocriton 12-05-2023 Hematocrit (Bld) [Volume fraction] 42.9 % 40.7 - 50.3 % [facility] Hemoglobin (Bld) [Mass/Vol] 13.1 g/dL 13.0 - 17.0 g/dL [facility] Hgb/Hcton 12-05-2023 Hematocrit (Bld) [Volume fraction] 42.9 % Normal 40.7-50.3 [facility] Comment on above: Performed By: #### P HO, CDP, RA, PT, SED, BMPX, FREDA, MG, LD, CRP, FEBC, B12FOL, PTT, C4, CCPAB, FERI, IOCAL, CORTI, CK, C3, REJEC #### [facility] [employer] [address] [place] [id number] Turning Machine Operator: Jasbir Montalvo MD Hemoglobin (Bld) [Mass/Vol] 13.1 g/dL Normal 13.0-17.0 [facility] Comment on above: Performed By: #### P HO, CDP, RA, PT, SED, BMPX, FREDA, MG, LD, CRP, FEBC, B12FOL, PTT, C4, CCPAB, FERI, IOCAL, CORTI, CK, C3, REJEC #### [employer] [address] [place] [id number] Turning Machine Operator: Jasbir Montalvo MD No Panel Informationon 12-04 [facility] POC Glucose Fingerstickon Glucose [Mass/Vol] 160 mg/dL High 75 - 110 mg/dL [facility] Interpretation and review of laboratory results Abnormal [facility] Glucose [Mass/Vol] 137 mg/dL High 75 - 110 mg/dL [facility] Interpretation and review of laboratory results Abnormal [facility] Glucose [Mass/Vol] 189 mg/dL High 75 - 110 mg/dL [facility] Interpretation and review of laboratory results Abnormal [facility] Glucose [Mass/Vol] 131 mg/dL High 75 - 110 mg/dL [facility] Interpretation and review of laboratory results Abnormal [facility] PTon 12-05-2023 INR Coag (PPP) [Relative time] 2.6 {INR} Normal [facility] Comment on above: Result Comment: Therapeutic Range: Moderate Anticoagulant Intensity: INR = 2.0-3.0 High Anticoagulant Intensity: INR = 2.5-3.5 Performed By: #### P HO, CDP, RA, PT, SED, BMPX, FREDA, MG, LD, CRP, FEBC, B12FOL, PTT, C4, CCPAB, FERI, IOCAL, CORTI, CK, C3, REJEC #### [employer] [address] [place] [id number] Turning Machine Operator: Jasbir Montalvo MD PT Coag (PPP) [Time] 26.8 s High 11.7-14.9 [facility] Comment on above: Performed By: #### P HO, CDP, RA, PT, SED, BMPX, FREDA, MG, LD, CRP, FEBC, B12FOL, PTT, C4, CCPAB, FERI, IOCAL, CORTI, CK, C3, REJEC #### [employer] [address] [place] [id number] Turning Machine Operator: Jasbir Montalvo MD Platelet Counton 12-05-2023 Platelets (Bld) [#/Vol] 194 10*3/uL Normal 138-453 [facility] Comment on above: Performed By: #### P HO, CDP, RA, PT, SED, BMPX, FREDA, MG, LD, CRP, FEBC, B12FOL, PTT, C4, CCPAB, FERI, IOCAL, CORTI, CK, C3, REJEC #### [facility] [address] [place] [id number] Turning Machine Operator: Jasbir Montalvo MD Platelets (Bld) [#/Vol] 194 10*3/uL [facility] Protime-INRon 12-05-2023 INR Coag (PPP) [Relative time] 2.6 {INR} [facility] Comment on above: Therapeutic Range: Moderate Anticoagulant Intensity: INR = 2.0-3.0 High Anticoagulant Intensity: INR = 2.5-3.5 Interpretation and review of laboratory results Abnormal [facility] PT Coag (PPP) [Time] 26.8 s High [facility] XR Foot - right 2 Viewson Radiology Study observation (narrative) [facility] Glucose,Whole Bloodon 2023 Glucose [Mass/Vol] 181 mg/dL High 75-110 [facility] Glucose [Mass/Vol] 194 mg/dL High 75-110 [facility] Glucose [Mass/Vol] 184 mg/dL High 75-110 [facility] Glucose [Mass/Vol] 120 mg/dL High 75-110 [facility] Glucose [Mass/Vol] 161 mg/dL High 75-110 [facility] POC Glucose Fingerstickon Glucose [Mass/Vol] 181 mg/dL High 75 - 110 mg/dL [facility] Interpretation and review of laboratory results Abnormal [facility] Glucose [Mass/Vol] 194 mg/dL High 75 - 110 mg/dL [facility] Interpretation and review of laboratory results Abnormal [facility] Glucose [Mass/Vol] 184 mg/dL High 75 - 110 mg/dL [facility] Interpretation and review of laboratory results Abnormal [facility] [facility] Glucose [Mass/Vol] 120 mg/dL High 75 - 110 mg/dL [facility] Interpretation and review of laboratory results Abnormal [facility] Glucose [Mass/Vol] 161 mg/dL High 75 - 110 mg/dL [facility] Interpretation and review of laboratory results Abnormal [facility] PTon 12-04-2023 INR Coag (PPP) [Relative time] 3.0 {INR} Normal [facility] Comment on above: Result Comment: Therapeutic Range: Moderate Anticoagulant Intensity: INR = 2.0-3.0 High Anticoagulant Intensity: INR = 2.5-3.5 Performed By: #### P HO, CDP, RA, PT, SED, BMPX, FREDA, MG, LD, CRP, FEBC, B12FOL, PTT, C4, CCPAB, FERI, IOCAL, CORTI, CK, C3, REJEC #### [facility] [address] [place] [address] Turning Machine Operator: Jasbir Montalvo MD PT Coag (PPP) [Time] 30.5 s High 11.7-14.9 [facility] Comment on above: Performed By: #### P HO, CDP, RA, PT, SED, BMPX, FREDA, MG, LD, CRP, FEBC, B12FOL, PTT, C4, CCPAB, FERI, IOCAL, CORTI, CK, C3, REJEC #### [facility] [address] [place] [address] Turning Machine Operator: Jasbir Montalvo MD Protime-INRon 12-04-2023 INR Coag (PPP) [Relative time] 3.0 {INR} [facility] Comment on above: Therapeutic Range: Moderate Anticoagulant Intensity: INR = 2.0-3.0 High Anticoagulant Intensity: INR = 2.5-3.5 Interpretation and review of laboratory results Abnormal [facility] PT Coag (PPP) [Time] 30.5 s High [facility] EKG 12 LeadOrdered By: Cesar Jean on 12-03-2023 Atrial Rate 67 BPM [facility] Work Phone: P [place] 78 degrees [facility] Work Phone: P-R Interval 148 ms [facility] Work Phone: Q-T Interval 404 ms [facility] Work Phone: QRS Duration 70 ms [facility] Work Phone: QTc Calculation (Bazett) 426 ms [facility] Work Phone: R [place]rae [place] -47 degrees [facility] Work Phone: T [place] 100 degrees [facility] Work Phone: Ventricular Rate 67 BPM [facility] Work Phone: [facility] Work Phone: EKG 12 Leadon 12-03-2023 Normal sinus rhythm Left axis deviation Inferior infarct , 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 , age undetermined Abnormal ECG No previous ECGs available [facility] Lori King MD - 12/03/2023 Normal sinus rhythm Left axis deviation Inferior infarct , 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 , age undetermined Abnormal ECG No previous ECGs available [facility] Atrial Rate 66 BPM [facility] P [place] 111 degrees [facility] P-R Interval 128 ms [facility] Q-T Interval 440 ms [facility] QRS Duration 94 ms [facility] QTc Calculation (Bazett) 461 ms [facility] R [place]rae [place] -48 degrees [facility] T [place]rae [place] 12 degrees [facility] Ventricular Rate 66 BPM [facility] Normal sinus rhythm Left anterior fascicular block Anterolateral infarct (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) Abnormal ECG When compared with ECG of 01-DEC-2023 15:42, QRS duration has increased ST no longer depressed in Anterolateral leads [facility] Lori King MD - 12/03/2023 Normal sinus rhythm Left anterior fascicular block Anterolateral infarct (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) Abnormal ECG When compared with ECG of 01-DEC-2023 15:42, QRS duration has increased ST no longer depressed in Anterolateral leads [facility] Glucose,Whole Bloodon 2023 Glucose [Mass/Vol] 232 mg/dL High 75-110 [facility] Glucose [Mass/Vol] 174 mg/dL High 75-110 [facility] Glucose [Mass/Vol] 176 mg/dL High 75-110 [facility] Glucose [Mass/Vol] 83 mg/dL Normal -110 [facility] POC Glucose Fingerstickon Glucose [Mass/Vol] 232 mg/dL High 75 - 110 mg/dL [facility] Interpretation and review of laboratory results Abnormal [facility] Glucose [Mass/Vol] 174 mg/dL High 75 - 110 mg/dL [facility] Interpretation and review of laboratory results Abnormal [facility] Glucose [Mass/Vol] 176 mg/dL High 75 - 110 mg/dL [facility] Interpretation and review of laboratory results Abnormal [facility] Glucose [Mass/Vol] 83 mg/dL 75 - 110 mg/dL [facility] PTon 12-03-2023 INR Coag (PPP) [Relative time] 3.3 {INR} Normal [facility] Comment on above: Result Comment: Therapeutic Range: Moderate Anticoagulant Intensity: INR = 2.0-3.0 High Anticoagulant Intensity: INR = 2.5-3.5 Performed By: #### P HO, CDP, RA, PT, SED, BMPX, FREDA, MG, LD, CRP, FEBC, B12FOL, PTT, C4, CCPAB, FERI, IOCAL, CORTI, CK, C3, REJEC #### [facility] [address] [place] [address] [id number] Turning Machine Operator: Jasbir Montalvo MD PT Coag (PPP) [Time] 32.2 s High 11.7-14.9 [facility] Comment on above: Performed By: #### P HO, CDP, RA, PT, SED, BMPX, FREDA, MG, LD, CRP, FEBC, B12FOL, PTT, C4, CCPAB, FERI, IOCAL, CORTI, CK, C3, REJEC #### [address] [address] Turning Machine Operator: Jasbir Montalvo MD Protime-INRon 12-03-2023 INR Coag (PPP) [Relative time] 3.3 {INR} [facility] Comment on above: Therapeutic Range: Moderate Anticoagulant Intensity: INR = 2.0-3.0 High Anticoagulant Intensity: INR = 2.5-3.5 Interpretation and review of laboratory results Abnormal [facility] PT Coag (PPP) [Time] 32.2 s High [facility] Basic Metab w/rfx MGon 12-02 Anion gap [Moles/Vol] 9 mmol/L Normal 9-17 [facility] Comment on above: Performed By: #### P HO, CDP, RA, PT, SED, BMPX, FREDA, MG, LD, CRP, FEBC, B12FOL, PTT, C4, CCPAB, FERI, IOCAL, CORTI, CK, C3, REJEC #### [address] [address] Turning Machine Operator: Jasbir Montalvo MD Calcium [Mass/Vol] 8.8 mg/dL Normal 8.6-10.4 [facility] Comment on above: Performed By: #### P HO, CDP, RA, PT, SED, BMPX, FREDA, MG, LD, CRP, FEBC, B12FOL, PTT, C4, CCPAB, FERI, IOCAL, CORTI, CK, C3, REJEC #### [address] [address] Turning Machine Operator: Jasbir Montalvo MD Chloride [Moles/Vol] 109 mmol/L High 98-107 [facility] Comment on above: Performed By: #### P HO, CDP, RA, PT, SED, BMPX, FREDA, MG, LD, CRP, FEBC, B12FOL, PTT, C4, CCPAB, FERI, IOCAL, CORTI, CK, C3, REJEC #### [address] [address] Turning Machine Operator: Jasbir Montalvo MD CO2 [Moles/Vol] 22 mmol/L Normal 20-31 [facility] Comment on above: Performed By: #### P HO, CDP, RA, PT, SED, BMPX, FREDA, MG, LD, CRP, FEBC, B12FOL, PTT, C4, CCPAB, FERI, IOCAL, CORTI, CK, C3, REJEC #### [address] [address] Turning Machine Operator: Jasbir Montalvo MD Creatinine [Mass/Vol] 1.5 mg/dL High 0.7-1.2 [facility] Comment on above: Performed By: #### P HO, CDP, RA, PT, SED, BMPX, FREDA, MG, LD, CRP, FEBC, B12FOL, PTT, C4, CCPAB, FERI, IOCAL, CORTI, CK, C3, REJEC #### [address] [address] Turning Machine Operator: Jasbir Montalvo MD GFR/1.73 sq M.predicted among non-blacks MDRD (S/P/Bld) [Vol rate/Area] 52 mL/min/{1.73_m2} Low >60 [facility] Comment on above: Result Comment: These results are not intended for use in patients <18 years of age. eGFR results are calculated without a race factor using the 2020 CKD-EPI equation. Careful clinical correlation is recommended, particularly when comparing to results calculated using previous equations. The CKD-EPI equation is less accurate in patients with extremes of muscle mass, extra-renal metabolism of creatine, excessive creatine ingestion, or following therapy that affects renal tubular secretion. Performed By: #### P HO, CDP, RA, PT, SED, BMPX, FREDA, MG, LD, CRP, FEBC, B12FOL, PTT, C4, CCPAB, FERI, IOCAL, CORTI, CK, C3, REJEC #### [address] [address] Turning Machine Operator: Jasbir Montalvo MD Glucose [Mass/Vol] 165 mg/dL High 70-99 [facility] Comment on above: Performed By: #### P HO, CDP, RA, PT, SED, BMPX, FREDA, MG, LD, CRP, FEBC, B12FOL, PTT, C4, CCPAB, FERI, IOCAL, CORTI, CK, C3, REJEC #### [facility] [address] [place] [address] Turning Machine Operator: Jasbir Montalvo MD Potassium [Moles/Vol] 3.7 mmol/L Normal 3.7-5.3 [facility] Comment on above: Performed By: #### P HO, CDP, RA, PT, SED, BMPX, FREDA, MG, LD, CRP, FEBC, B12FOL, PTT, C4, CCPAB, FERI, IOCAL, CORTI, CK, C3, REJEC #### [address] [address] Turning Machine Operator: Jasbir Montalvo MD Sodium [Moles/Vol] 140 mmol/L Normal 135-144 [facility] Comment on above: Performed By: #### P HO, CDP, RA, PT, SED, BMPX, FREDA, MG, LD, CRP, FEBC, B12FOL, PTT, C4, CCPAB, FERI, IOCAL, CORTI, CK, C3, REJEC #### [facility] [address] [place], [place] [id number] Turning Machine Operator: Jasbir Montalvo MD Urea nitrogen [Mass/Vol] 36 mg/dL High 8- [facility] Comment on above: Performed By: #### P HO, CDP, RA, PT, SED, BMPX, FREDA, MG, LD, CRP, FEBC, B12FOL, PTT, C4, CCPAB, FERI, IOCAL, CORTI, CK, C3, REJEC #### [facility] [address] [place] [address] Turning Machine Operator: Jasbir Montalvo MD Basic Metabolic Panel w/ Ref sarah to MGon 12-02-2023 Anion gap [Moles/Vol] 9 mmol/L 9 - 17 mmol/L [facility] [employer] Calcium [Mass/Vol] 8.8 mg/dL 8.6 - 10. 4 mg/dL [facility] Chloride [Moles/Vol] 109 mmol/L High 98 - 107 mmol/L [facility] CO2 [Moles/Vol] 22 mmol/L 20 - 31 mmol/L [facility] Creatinine [Mass/Vol] 1.5 mg/dL High 0.7 - 1.2 mg/dL [facility] GFR/1.73 sq M.predicted MDRD (S/P/Bld) [Vol rate/Area] 52 mL/min/{1.73_m2} Low - PINF [facility] Comment on above: These results are not intended for use in patients <18 years of age. eGFR results are calculated without a race factor using the 2020 CKD-EPI equation. Careful clinical correlation is recommended, particularly when comparing to results calculated using previous equations. The CKD-EPI equation is less accurate in patients with extremes of muscle mass, extra-renal metabolism of creatine, excessive creatine ingestion, or following therapy that affects renal tubular secretion. Glucose [Mass/Vol] 165 mg/dL High 70 - 99 mg/dL [facility] Interpretation and review of laboratory results Abnormal [facility] Potassium [Moles/Vol] 3.7 mmol/L 3.7 - 5.3 mmol/L [facility] Sodium [Moles/Vol] 140 mmol/L 135 - 144 mmol/L [facility] Urea nitrogen [Mass/Vol] 36 mg/dL High 8 - 23 mg/dL [facility] CBC with Auto Differentialon 12-02-2023 Basophils (Bld) [#/Vol] 0.08 10*3/uL [facility] Basophils/100 WBC (Bld) 1 % 0 - 2 % [facility] Eosinophils (Bld) [#/Vol] 0.43 10*3/uL [facility] Eosinophils/100 WBC (Bld) 4 % 1 - 4 % [facility] Erythrocyte distribution width (RBC) [Ratio] 14.2 % 11.8 - 14.4 % [facility] Hematocrit (Bld) [Volume fraction] 46.4 % 40.7 - 50.3 % [facility] Hemoglobin (Bld) [Mass/Vol] 14.4 g/dL 13.0 - 17.0 g/dL [facility] Immature granulocytes (Bld) [#/Vol] 0.03 10*3/uL [facility] Immature granulocytes/100 WBC (Bld) 0 % 0 [facility] Lymphocytes/100 WBC (Bld) 29 % 24 - 43 % [facility] Lymphocytes/100 WBC (Bld) 3.23 % [facility] MCH (RBC) [Entitic mass] 31.2 pg 25.2 - 33.5 pg [facility] MCHC (RBC) [Mass/Vol] 31.0 g/dL 28.4 - 34.8 g/dL [facility] MCV (RBC) [Entitic vol] 100.7 fL 82.6 - 102.9 fL [facility] Monocytes/100 WBC (Bld) 8 % 3 - 12 % [facility] Monocytes/100 WBC (Bld) 0.93 % [facility] Neutrophils/100 WBC (Bld) 58 % 36 - 65 % [facility] Nucleated RBC/100 WBC (Bld) [Ratio] 0.0 % 0.0 per 100 WBC [facility] Platelet mean volume (Bld) [Entitic vol] 10.3 fL 8.1 - 13.5 fL [facility] Platelets (Bld) [#/Vol] 230 10*3/uL [facility] RBC (Bld) [#/Vol] 4.61 10*6/uL 4.21 - 5.7 7 m/uL [facility] Segmented neutrophils/100 WBC (Bld) 6.39 % [facility] WBC other (Bld) [#/Vol] 11.1 [facility] CBC with Diffon 12-02-2023 Abs. Basophil 0.08 k/uL Normal 0.00-0.20 [facility] Comment on above: Performed By: #### P HO, CDP, RA, PT, SED, BMPX, FREDA, MG, LD, CRP, FEBC, B12FOL, PTT, C4, CCPAB, FERI, IOCAL, CORTI, CK, C3, REJEC #### [facility] [address] [place] [id number] Turning Machine Operator: Jasbir Montalvo MD Abs.Imm.Granulocyte 0.03 k/uL Normal 0.00-0.30 [facility] Comment on above: Performed By: #### P HO, CDP, RA, PT, SED, BMPX, FREDA, MG, LD, CRP, FEBC, B12FOL, PTT, C4, CCPAB, FERI, IOCAL, CORTI, CK, C3, REJEC #### [facility] [address] [place], [place] [id number] Turning Machine Operator: Jasbir Montalvo MD Abs.Neutrophil (Seg) 6.39 k/uL Normal 1.50-8.10 [facility] Comment on above: Performed By: #### P HO, CDP, RA, PT, SED, BMPX, FREDA, MG, LD, CRP, FEBC, B12FOL, PTT, C4, CCPAB, FERI, IOCAL, CORTI, CK, C3, REJEC #### [address] [address] Turning Machine Operator: Jasbir Montalvo MD Basophils/100 WBC (Bld) 1 % Normal 0-2 [facility] Comment on above: Performed By: #### P HO, CDP, RA, PT, SED, BMPX, FREDA, MG, LD, CRP, FEBC, B12FOL, PTT, C4, CCPAB, FERI, IOCAL, CORTI, CK, C3, REJEC #### [address] [address] Turning Machine Operator: Jasbir Montalvo MD Eosinophils (Bld) [#/Vol] 0.43 10*3/uL Normal 0.00-0.44 [facility] Comment on above: Performed By: #### P HO, CDP, RA, PT, SED, BMPX, FREDA, MG, LD, CRP, FEBC, B12FOL, PTT, C4, CCPAB, FERI, IOCAL, CORTI, CK, C3, REJEC #### [address] [address] Turning Machine Operator: Jasbir Montalvo MD Eosinophils/100 WBC (Bld) 4 % Normal 1-4 [facility] Comment on above: Performed By: #### P HO, CDP, RA, PT, SED, BMPX, FREDA, MG, LD, CRP, FEBC, B12FOL, PTT, C4, CCPAB, FERI, IOCAL, CORTI, CK, C3, REJEC #### [address] [address] Turning Machine Operator: Jasbir Montalvo MD Erythrocyte distribution width (RBC) [Ratio] 14.2 % Normal 11.8-14.4 [facility] Comment on above: Performed By: #### P HO, CDP, RA, PT, SED, BMPX, FREDA, MG, LD, CRP, FEBC, B12FOL, PTT, C4, CCPAB, FERI, IOCAL, CORTI, CK, C3, REJEC #### [address] [address] Turning Machine Operator: Jasbir Montalvo MD Hematocrit (Bld) [Volume fraction] 46.4 % Normal 40.7-50.3 [facility] Comment on above: Performed By: #### P HO, CDP, RA, PT, SED, BMPX, FREDA, MG, LD, CRP, FEBC, B12FOL, PTT, C4, CCPAB, FERI, IOCAL, CORTI, CK, C3, REJEC #### [address] [address] Turning Machine Operator: Jasbir Montalvo MD Hemoglobin (Bld) [Mass/Vol] 14.4 g/dL Normal 13.0-17.0 [facility] Comment on above: Performed By: #### P HO, CDP, RA, PT, SED, BMPX, FREDA, MG, LD, CRP, FEBC, B12FOL, PTT, C4, CCPAB, FERI, IOCAL, CORTI, CK, C3, REJEC #### [address] [address] Turning Machine Operator: Jasbir Montalvo MD Immature granulocytes/100 WBC (Bld) 0 % Normal 0 [facility] Comment on above: Performed By: #### P HO, CDP, RA, PT, SED, BMPX, FREDA, MG, LD, CRP, FEBC, B12FOL, PTT, C4, CCPAB, FERI, IOCAL, CORTI, CK, C3, REJEC #### [address] [address] Turning Machine Operator: Jasbir Montalvo MD Lymphocytes (Bld) [#/Vol] 3.23 10*3/uL Normal 1.10-3.70 [facility] Comment on above: Performed By: #### P HO, CDP, RA, PT, SED, BMPX, FREDA, MG, LD, CRP, FEBC, B12FOL, PTT, C4, CCPAB, FERI, IOCAL, CORTI, CK, C3, REJEC #### [facility] [address] [place] [id number] Turning Machine Operator: Jasbir Montalvo MD Lymphocytes/100 WBC (Bld) 29 % Normal 24-43 [facility] Comment on above: Performed By: #### P HO, CDP, RA, PT, SED, BMPX, FREDA, MG, LD, CRP, FEBC, B12FOL, PTT, C4, CCPAB, FERI, IOCAL, CORTI, CK, C3, REJEC #### [address] [address] Turning Machine Operator: Jasbir Montalvo MD MCH (RBC) [Entitic mass] 31.2 pg Normal 25.2-33.5 [facility] Comment on above: Performed By: #### P HO, CDP, RA, PT, SED, BMPX, FREDA, MG, LD, CRP, FEBC, B12FOL, PTT, C4, CCPAB, FERI, IOCAL, CORTI, CK, C3, REJEC #### [address] [address] Turning Machine Operator: Jasbir Montalvo MD MCHC (RBC) [Mass/Vol] 31.0 g/dL Normal 28.4-34.8 [facility] Comment on above: Performed By: #### P HO, CDP, RA, PT, SED, BMPX, FREDA, MG, LD, CRP, FEBC, B12FOL, PTT, C4, CCPAB, FERI, IOCAL, CORTI, CK, C3, REJEC #### [facility] [address] [place] [address] Turning Machine Operator: Jasbir Montalvo MD MCV (RBC) [Entitic vol] 100.7 fL Normal 82.6-102.9 [facility] Comment on above: Performed By: #### P HO, CDP, RA, PT, SED, BMPX, FREDA, MG, LD, CRP, FEBC, B12FOL, PTT, C4, CCPAB, FERI, IOCAL, CORTI, CK, C3, REJEC #### [address] [address] Turning Machine Operator: Jasbir Montalvo MD Monocytes (Bld) [#/Vol] 0.93 10*3/uL Normal 0.10-1.20 [facility] Comment on above: Performed By: #### P HO, CDP, RA, PT, SED, BMPX, FREDA, MG, LD, CRP, FEBC, B12FOL, PTT, C4, CCPAB, FERI, IOCAL, CORTI, CK, C3, REJEC #### [address] [address] Turning Machine Operator: Jasbir Montalvo MD Monocytes/100 WBC (Bld) 8 % Normal 3-12 [facility] Comment on above: Performed By: #### P HO, CDP, RA, PT, SED, BMPX, FREDA, MG, LD, CRP, FEBC, B12FOL, PTT, C4, CCPAB, FERI, IOCAL, CORTI, CK, C3, REJEC #### [address] [address] Turning Machine Operator: Jasbir Montalvo MD Neutrophil (Seg) 58 % Normal 36-65 [facility] Comment on above: Performed By: #### P HO, CDP, RA, PT, SED, BMPX, FREDA, MG, LD, CRP, FEBC, B12FOL, PTT, C4, CCPAB, FERI, IOCAL, CORTI, CK, C3, REJEC #### [address] [address] Turning Machine Operator: Jasbir Montalvo MD NRBC Automated 0.0 per 100 WBC Normal 0.0 [facility] Comment on above: Performed By: #### P HO, CDP, RA, PT, SED, BMPX, FREDA, MG, LD, CRP, FEBC, B12FOL, PTT, C4, CCPAB, FERI, IOCAL, CORTI, CK, C3, REJEC #### [address] [address] Turning Machine Operator: Jasbir Montalvo MD Platelet mean volume (Bld) [Entitic vol] 10.3 fL Normal 8.1-13.5 [facility] Comment on above: Performed By: #### P HO, CDP, RA, PT, SED, BMPX, FREDA, MG, LD, CRP, FEBC, B12FOL, PTT, C4, CCPAB, FERI, IOCAL, CORTI, CK, C3, REJEC #### [address] [address] Turning Machine Operator: Jasbir Montalvo MD Platelets (Bld) [#/Vol] 230 10*3/uL Normal 138-453 [facility] Comment on above: Performed By: #### P HO, CDP, RA, PT, SED, BMPX, FREDA, MG, LD, CRP, FEBC, B12FOL, PTT, C4, CCPAB, FERI, IOCAL, CORTI, CK, C3, REJEC #### [address] [address] Turning Machine Operator: Jasbir Montalvo MD RBC (Bld) [#/Vol] 4.61 10*6/uL Normal 4.21-5.77 [facility] Comment on above: Performed By: #### P HO, CDP, RA, PT, SED, BMPX, FREDA, MG, LD, CRP, FEBC, B12FOL, PTT, C4, CCPAB, FERI, IOCAL, CORTI, CK, C3, REJEC #### [address] [address] Turning Machine Operator: Jasbir Montalvo MD WBC (Bld) [#/Vol] 11.1 10*3/uL Normal 3.5-11.3 [facility] Comment on above: Performed By: #### P HO, CDP, RA, PT, SED, BMPX, FREDA, MG, LD, CRP, FEBC, B12FOL, PTT, C4, CCPAB, FERI, IOCAL, CORTI, CK, C3, REJEC #### [facility] [address] [place] [address] [employer] Machine Operator: Jasbir Montalvo MD EEGon 12-02-2023 Ayo Torres MD 12/02/2023 3:40 PM EEG REPORT Patient: Andry Pierre Age: 63 y.o. Referring Provider: Charlee Arce PA-C History: This routine 30 minute scalp EEG was recorded with video- monitoring for a 63 y.o.. male who presented with encephalopathy. This EEG was performed to evaluate for focal and epileptiform abnormalities. Andry Pierre Current Facility-Administered Medications Medication Dose Route Frequency Provider Last Rate Last Admin warfarin (COUMADIN) tablet 15 mg 15 mg Oral Once Jamia Nur MD cloNIDine (CATAPRES) tablet 0.1 mg 0.1 mg Oral BID Lori Leblanc MD insulin glargine (LANTUS) injection vial 2 Units 2 Units SubCUTAneous Daily Polly Ramos MD 2 Units at 12/02/23 0852 atorvastatin (LIPITOR) tablet 40 mg 40 mg Oral Daily Jamia Nur MD 40 mg at 12/01/23 2252 [Held by provider] metFORMIN (GLUCOPHAGE) tablet 500 mg 500 mg Oral BID Jamia Nur MD 500 mg at 11/30/23 1055 montelukast (SINGULAIR) tablet 10 mg 10 mg Oral Daily Jamia Nur MD 10 mg at 12/02/23 0851 NIFEdipine (PROCARDIA XL) extended release tablet 90 mg 90 mg Oral Daily Jamia Nur MD 90 mg at 12/01/23 1042 pantoprazole (PROTONIX) tablet 40 mg 40 mg Oral Daily Jamia Nur MD 40 mg at 12/02/23 0851 topiramate (TOPAMAX) tablet 100 mg 100 mg Oral BID Jamia Nur MD 100 mg at 12/02/23 0851 labetalol (NORMODYNE;TRANDATE) injection 10 mg 10 mg IntraVENous Q6H PRN Jackie Rivas MD 10 mg at 11/30/23 1640 warfarin placeholder: dosing by pharmacy Other RX Placeholder Jackie Rivas MD insulin lispro (HUMALOG) injection vial 0-4 Units 0-4 Units SubCUTAneous TID WC Jackie Rivas MD 1 Units at 12/01/23 1258 insulin lispro (HUMALOG) injection vial 0-4 Units 0-4 Units SubCUTAneous Nightly Jackie Rivas MD glucose chewable tablet 16 g 4 tablet Oral PRN Jackie Rivas MD dextrose bolus 10% 125 mL 125 mL IntraVENous PRN Jackie Rivas MD Or dextrose bolus 10% 250 mL 250 mL IntraVENous PRN Jackie Rivas MD glucagon (rDNA) injection 1 mg 1 mg SubCUTAneous PRN Jackie Rivas MD dextrose 10 % infusion IntraVENous Continuous PRN Jackie Rivas MD valsartan (DIOVAN) tablet 160 mg 160 mg Oral Daily Jackie Rivas MD 160 mg at 12/02/23 0937 morphine (PF) injection 2 mg 2 mg IntraVENous Q4H PRN Jackie Rivas MD 2 mg at 12/02/23 1348 sodium chloride flush 0.9 % injection 5-40 mL 5-40 mL IntraVENous 2 times per day uSe Willams PA 10 mL at 12/02/23 0903 sodium chloride flush 0.9 % injection 5-40 mL 5-40 mL IntraVENous PRN Sue Willams PA 10 mL at 12/02/23 1348 0.9 % sodium chloride infusion IntraVENous PRN Sue Willams PA potassium chloride (KLOR-CON M) extended release tablet 40 mEq 40 mEq Oral PRN Sue Willams PA Or potassium bicarb-citric acid (EFFER-K) effervescent tablet 40 mEq 40 mEq Oral PRN Sue Willams PA Or potassium chloride 10 mEq/100 mL IVPB (Peripheral Line) 10 mEq IntraVENous PRN Sue Willams PA magnesium sulfate 2000 mg in 50 mL IVPB premix 2,000 mg IntraVENous PRN Sue Willams PA ondansetron (ZOFRAN-ODT) disintegrating tablet 4 mg 4 mg Oral Q8H PRN Sue Willams PA Or ondansetron (ZOFRAN) injection 4 mg 4 mg IntraVENous Q6H PRN Sue Willams PA polyethylene glycol (GLYCOLAX) packet 17 g 17 g Oral Daily PRN Sue Willams PA acetaminophen (TYLENOL) tablet 650 mg 650 mg Oral Q6H PRN Sue Willams PA 650 mg at 12/01/23 1057 Or acetaminophen (TYLENOL) suppository 650 mg 650 mg Rectal Q6H PRN Sue Willams PA Vitamin D (CHOLECALCIFEROL) tablet 5,000 Units 5,000 Units Oral Daily Jamia Nur MD 5,000 Units at 12/02/23 0851 Technical Description: This is a 21 channel digital EEG recording with time-locked video. Electrodes were placed in accordance with the 10-20 International System of Electrode Placement. Single lead EKG monitoring as well as temporal electrodes were included. The patient was not sleep deprived. This recording was obtained during wakefulness. EEG Description: The dominant background activity during maximal recorded wakefulness consisted of 4-5 Hz of polymorphic delta and theta activity of 25 to 35 V. The background was symmetric and continuous. There was poor anterior posterior amplitude gradient. Sleep architecture was seen with vertex waves and sleep spindles . Activation procedures were not performed. The EKG channel demonstrated a normal sinus rhythm. Interpretation This EEG was abnormal due to disorganized and slow background in polymorphic delta and theta frequency. Clinical correlation This EEG was abnormal. Disorganized and slow background suggested mild to moderate encephalopathy . Ayo Torres MD [facility] EEGOrdered By: Ayo Torres on 12-02-2023 [facility] Work Phone: Glucose,Whole Bloodon 2023 Glucose [Mass/Vol] 179 mg/dL High 75-110 [facility] Glucose [Mass/Vol] 169 mg/dL High 75-110 [facility] Glucose [Mass/Vol] 172 mg/dL High 75-110 [facility] Glucose [Mass/Vol] 117 mg/dL High 75-110 [facility] POC Glucose Fingerstickon Glucose [Mass/Vol] 179 mg/dL High 75 - 110 mg/dL [facility] Interpretation and review of laboratory results Abnormal [facility] Glucose [Mass/Vol] 169 mg/dL High 75 - 110 mg/dL [facility] Interpretation and review of laboratory results Abnormal [facility] Glucose [Mass/Vol] 172 mg/dL High 75 - 110 mg/dL [facility] Interpretation and review of laboratory results Abnormal [facility] Glucose [Mass/Vol] 117 mg/dL High 75 - 110 mg/dL [facility] Interpretation and review of laboratory results Abnormal [facility] PTon 12-02-2023 INR Coag (PPP) [Relative time] 2.8 {INR} Normal [facility] Comment on above: Result Comment: Therapeutic Range: Moderate Anticoagulant Intensity: INR = 2.0-3.0 High Anticoagulant Intensity: INR = 2.5-3.5 Performed By: #### P HO, CDP, RA, PT, SED, BMPX, FREDA, MG, LD, CRP, FEBC, B12FOL, PTT, C4, CCPAB, FERI, IOCAL, CORTI, CK, C3, REJEC #### [employer] [address] [place] [address] Turning Machine Operator: Jasbir Montalvo MD PT Coag (PPP) [Time] 28.9 s High 11.7-14.9 [facility] Comment on above: Performed By: #### P HO, CDP, RA, PT, SED, BMPX, FREDA, MG, LD, CRP, FEBC, B12FOL, PTT, C4, CCPAB, FERI, IOCAL, CORTI, CK, C3, REJEC #### [facility] [address] [place] [address] Turning Machine Operator: Jasbir Montalvo MD Protime-INRon 12-02-2023 INR Coag (PPP) [Relative time] 2.8 {INR} [facility] Comment on above: Therapeutic Range: Moderate Anticoagulant Intensity: INR = 2.0-3.0 High Anticoagulant Intensity: INR = 2.5-3.5 Interpretation and review of laboratory results Abnormal [facility] PT Coag (PPP) [Time] 28.9 s High [facility] Aldolaseon 12-01-2023 Aldolase 6.9 U/L Normal 1.2-7.6 [facility] Comment on above: Result Comment: (NOT E) This specimen is Hemolyzed. This may cause the results to be falsely increased. REFERENCE INTERVAL: Aldolase Access complete set of age- and/or gender-specific reference intervals for this test in the [facility] Test Directory ([place]). Performed By: [employer] [address] [place] [id number] Restaurant Operations Manager: Uriah Prasad MD, PhD CLIA Number: [id number] Performed By: #### P HO, CDP, RA, PT, SED, BMPX, FREDA, MG, LD, CRP, FEBC, B12FOL, PTT, C4, CCPAB, FERI, IOCAL, CORTI, CK, C3, REJEC #### [place] [address] Turning Machine Operator: Jasbir Montalvo MD Aldolase [Catalytic activity/Vol] 6.9 mU/mL 1.2 - 7.6 U/L [facility] Comment on above: (NOTE) This specimen is Hemolyzed. This may cause the results to be falsely increased. REFERENCE INTERVAL: Aldolase Access complete set of age- and/or gender-specific reference intervals for this test in the [facility] Test Directory ([facility] [place]). Performed By: [employer] [address] [place] [id number] Restaurant Operations Manager: Uriah Prasad MD, PhD CLIA Number: [id number] [facility] Anti CCPon 12-01-2023 Anti CCP 1.5 U/mL Normal 0.0-7.0 [facility] Comment on above: Result Comment: Reference Range: <7.0 Negative 7.0-10.0 Equivocal >10.0 Positive Performed By: #### P HO, CDP, RA, PT, SED, BMPX, FREDA, MG, LD, CRP, FEBC, B12FOL, PTT, C4, CCPAB, FERI, IOCAL, CORTI, CK, C3, REJEC #### [address] [address] Turning Machine Operator: Jasbir Montalvo MD Basic Metab w/rfx MGon 12-01 Anion gap [Moles/Vol] 10 mmol/L Normal 9-17 [facility] Comment on above: Performed By: #### P HO, CDP, RA, PT, SED, BMPX, FREDA, MG, LD, CRP, FEBC, B12FOL, PTT, C4, CCPAB, FERI, IOCAL, CORTI, CK, C3, REJEC #### [address] [address] Turning Machine Operator: Jasbir Montalvo MD Calcium [Mass/Vol] 8.9 mg/dL Normal 8.6-10.4 [facility] Comment on above: Performed By: #### P HO, CDP, RA, PT, SED, BMPX, FREDA, MG, LD, CRP, FEBC, B12FOL, PTT, C4, CCPAB, FERI, IOCAL, CORTI, CK, C3, REJEC #### [address] [address] Turning Machine Operator: Jasbir Montalvo MD Chloride [Moles/Vol] 108 mmol/L High 98-107 [facility] Comment on above: Performed By: #### P HO, CDP, RA, PT, SED, BMPX, FREDA, MG, LD, CRP, FEBC, B12FOL, PTT, C4, CCPAB, FERI, IOCAL, CORTI, CK, C3, REJEC #### [address] [address] Turning Machine Operator: Jasbir Montalvo MD CO2 [Moles/Vol] 22 mmol/L Normal 20-31 [facility] Comment on above: Performed By: #### P HO, CDP, RA, PT, SED, BMPX, FREDA, MG, LD, CRP, FEBC, B12FOL, PTT, C4, CCPAB, FERI, IOCAL, CORTI, CK, C3, REJEC #### [facility] [employer] [address] [place] [address] Turning Machine Operator: Jasbir Montalvo MD Creatinine [Mass/Vol] 1.6 mg/dL High 0.7-1.2 [facility] Comment on above: Performed By: #### P HO, CDP, RA, PT, SED, BMPX, FREDA, MG, LD, CRP, FEBC, B12FOL, PTT, C4, CCPAB, FERI, IOCAL, CORTI, CK, C3, REJEC #### [facility] [employer] [address] [place] [address] Turning Machine Operator: Jasbir Montalvo MD GFR/1.73 sq M.predicted among non-blacks MDRD (S/P/Bld) [Vol rate/Area] 48 mL/min/{1.73_m2} Low >60 [facility] Comment on above: Result Comment: These results are not intended for use in patients <18 years of age. eGFR results are calculated without a race factor using the 2020 CKD-EPI equation. Careful clinical correlation is recommended, particularly when comparing to results calculated using previous equations. The CKD-EPI equation is less accurate in patients with extremes of muscle mass, extra-renal metabolism of creatine, excessive creatine ingestion, or following therapy that affects renal tubular secretion. Performed By: #### P HO, CDP, RA, PT, SED, BMPX, FREDA, MG, LD, CRP, FEBC, B12FOL, PTT, C4, CCPAB, FERI, IOCAL, CORTI, CK, C3, REJEC #### [facility] [employer] [address] [place] [id number] Turning Machine Operator: Jasbir Montalvo MD Glucose [Mass/Vol] 144 mg/dL High 70-99 [facility] Comment on above: Performed By: #### P HO, CDP, RA, PT, SED, BMPX, FREDA, MG, LD, CRP, FEBC, B12FOL, PTT, C4, CCPAB, FERI, IOCAL, CORTI, CK, C3, REJEC #### [facility] [employer] [address] [place] [address] Turning Machine Operator: Jasbir Montalvo MD Potassium [Moles/Vol] 3.8 mmol/L Normal 3.7-5.3 [facility] Comment on above: Performed By: #### P HO, CDP, RA, PT, SED, BMPX, FREDA, MG, LD, CRP, FEBC, B12FOL, PTT, C4, CCPAB, FERI, IOCAL, CORTI, CK, C3, REJEC #### [address] [address] Turning Machine Operator: Jasbir Montalvo MD Sodium [Moles/Vol] 140 mmol/L Normal 135-144 [facility] Comment on above: Performed By: #### P HO, CDP, RA, PT, SED, BMPX, FREDA, MG, LD, CRP, FEBC, B12FOL, PTT, C4, CCPAB, FERI, IOCAL, CORTI, CK, C3, REJEC #### [facility] [employer] [address] [place] [id number] Turning Machine Operator: Jasbir Montalvo MD Urea nitrogen [Mass/Vol] 39 mg/dL High 05-28 [facility] Comment on above: Performed By: #### P HO, CDP, RA, PT, SED, BMPX, FREDA, MG, LD, CRP, FEBC, B12FOL, PTT, C4, CCPAB, FERI, IOCAL, CORTI, CK, C3, REJEC #### [facility] [employer] [address] [place] [id number] Turning Machine Operator: Jasbir Montalvo MD Basic Metabolic Panel w/ Ref sarah to MGon 12-01-2023 Anion gap [Moles/Vol] 10 mmol/L 9 - 17 mmol/L [facility] Calcium [Mass/Vol] 8.9 mg/dL 8.6 - 10. 4 mg/dL [facility] Chloride [Moles/Vol] 108 mmol/L High 98 - 107 mmol/L [facility] CO2 [Moles/Vol] 22 mmol/L 20 - 31 mmol/L [facility] Creatinine [Mass/Vol] 1.6 mg/dL High 0.7 - 1.2 mg/dL [facility] GFR/1.73 sq M.predicted MDRD (S/P/Bld) [Vol rate/Area] 48 mL/min/{1.73_m2} Low - PINF [facility] Comment on above: These results are not intended for use in patients <18 years of age. eGFR results are calculated without a race factor using the 2020 CKD-EPI equation. Careful clinical correlation is recommended, particularly when comparing to results calculated using previous equations. The CKD-EPI equation is less accurate in patients with extremes of muscle mass, extra-renal metabolism of creatine, excessive creatine ingestion, or following therapy that affects renal tubular secretion. Glucose [Mass/Vol] 144 mg/dL High 70 - 99 mg/dL [facility] Interpretation and review of laboratory results Abnormal [facility] Potassium [Moles/Vol] 3.8 mmol/L 3.7 - 5.3 mmol/L [facility] Sodium [Moles/Vol] 140 mmol/L 135 - 144 mmol/L [facility] Urea nitrogen [Mass/Vol] 39 mg/dL High 8 - 23 mg/dL [facility] CBC with Auto Differentialon 12-01-2023 Basophils (Bld) [#/Vol] 0.08 10*3/uL [facility] Basophils/100 WBC (Bld) 1 % 0 - 2 % [facility] Eosinophils (Bld) [#/Vol] 0.37 10*3/uL [facility] Eosinophils/100 WBC (Bld) 3 % 1 - 4 % [facility] Erythrocyte distribution width (RBC) [Ratio] 14.4 % 11.8 - 14.4 % [facility] Hematocrit (Bld) [Volume fraction] 46.3 % 40.7 - 50.3 % [facility] Hemoglobin (Bld) [Mass/Vol] 14.6 g/dL 13.0 - 17.0 g/dL [facility] Immature granulocytes (Bld) [#/Vol] 0.04 10*3/uL [facility] Immature granulocytes/100 WBC (Bld) 0 % 0 [facility] Lymphocytes/100 WBC (Bld) 25 % 24 - 43 % [facility] Lymphocytes/100 WBC (Bld) 2.76 % [facility] MCH (RBC) [Entitic mass] 31.2 pg 25.2 - 33.5 pg [facility] MCHC (RBC) [Mass/Vol] 31.5 g/dL 28.4 - 34.8 g/dL [facility] MCV (RBC) [Entitic vol] 98.9 fL 82.6 - 102.9 fL [facility] Monocytes/100 WBC (Bld) 8 % 3 - 12 % [facility] Monocytes/100 WBC (Bld) 0.82 % [facility] Neutrophils/100 WBC (Bld) 63 % 36 - 65 % [facility] Nucleated RBC/100 WBC (Bld) [Ratio] 0.0 % 0.0 per 100 WBC [facility] Platelet mean volume (Bld) [Entitic vol] 10.4 fL 8.1 - 13.5 fL [facility] Platelets (Bld) [#/Vol] 223 10*3/uL [facility] RBC (Bld) [#/Vol] 4.68 10*6/uL 4.21 - 5.7 7 m/uL [facility] Segmented neutrophils/100 WBC (Bld) 6.78 % [facility] WBC other (Bld) [#/Vol] 10.9 [facility] CBC with Diffon 12-01-2023 Abs. Basophil 0.08 k/uL Normal 0.00-0.20 [facility] Comment on above: Performed By: #### P HO, CDP, RA, PT, SED, BMPX, FREDA, MG, LD, CRP, FEBC, B12FOL, PTT, C4, CCPAB, FERI, IOCAL, CORTI, CK, C3, REJEC #### [facility] [address] [place] [id number] Turning Machine Operator: Jasbir Montalvo MD Abs.Imm.Granulocyte 0.04 k/uL Normal 0.00-0.30 [facility] Comment on above: Performed By: #### P HO, CDP, RA, PT, SED, BMPX, FREDA, MG, LD, CRP, FEBC, B12FOL, PTT, C4, CCPAB, FERI, IOCAL, CORTI, CK, C3, REJEC #### [address] [id number] Turning Machine Operator: Jasbir Montalvo MD Abs.Neutrophil (Seg) 6.78 k/uL Normal 1.50-8.10 [facility] Comment on above: Performed By: #### P HO, CDP, RA, PT, SED, BMPX, FREDA, MG, LD, CRP, FEBC, B12FOL, PTT, C4, CCPAB, FERI, IOCAL, CORTI, CK, C3, REJEC #### [address] [id number] Turning Machine Operator: Jasbir Montalvo MD Basophils/100 WBC (Bld) 1 % Normal 0-2 [facility] Comment on above: Performed By: #### P HO, CDP, RA, PT, SED, BMPX, FREDA, MG, LD, CRP, FEBC, B12FOL, PTT, C4, CCPAB, FERI, IOCAL, CORTI, CK, C3, REJEC #### [address] [id number] Turning Machine Operator: Jasbir Montalvo MD Eosinophils (Bld) [#/Vol] 0.37 10*3/uL Normal 0.00-0.44 [facility] Comment on above: Performed By: #### P HO, CDP, RA, PT, SED, BMPX, FREDA, MG, LD, CRP, FEBC, B12FOL, PTT, C4, CCPAB, FERI, IOCAL, CORTI, CK, C3, REJEC #### [address] [id number] Turning Machine Operator: Jasbir Montalvo MD Eosinophils/100 WBC (Bld) 3 % Normal 1-4 [facility] Comment on above: Performed By: #### P HO, CDP, RA, PT, SED, BMPX, FREDA, MG, LD, CRP, FEBC, B12FOL, PTT, C4, CCPAB, FERI, IOCAL, CORTI, CK, C3, REJEC #### [address] [address] Turning Machine Operator: Jasbir Montalvo MD Erythrocyte distribution width (RBC) [Ratio] 14.4 % Normal 11.8-14.4 [facility] Comment on above: Performed By: #### P HO, CDP, RA, PT, SED, BMPX, FREDA, MG, LD, CRP, FEBC, B12FOL, PTT, C4, CCPAB, FERI, IOCAL, CORTI, CK, C3, REJEC #### [address] [address] Turning Machine Operator: Jasbir Montalvo MD Hematocrit (Bld) [Volume fraction] 46.3 % Normal 40.7-50.3 [facility] Comment on above: Performed By: #### P HO, CDP, RA, PT, SED, BMPX, FREDA, MG, LD, CRP, FEBC, B12FOL, PTT, C4, CCPAB, FERI, IOCAL, CORTI, CK, C3, REJEC #### [address] [address] Turning Machine Operator: Jasbir Montalvo MD Hemoglobin (Bld) [Mass/Vol] 14.6 g/dL Normal 13.0-17.0 [facility] Comment on above: Performed By: #### P HO, CDP, RA, PT, SED, BMPX, FREDA, MG, LD, CRP, FEBC, B12FOL, PTT, C4, CCPAB, FERI, IOCAL, CORTI, CK, C3, REJEC #### [address] [phone] Turning Machine Operator: Jasbir Montalvo MD Immature granulocytes/100 WBC (Bld) 0 % Normal 0 [facility] Comment on above: Performed By: #### P HO, CDP, RA, PT, SED, BMPX, FREDA, MG, LD, CRP, FEBC, B12FOL, PTT, C4, CCPAB, FERI, IOCAL, CORTI, CK, C3, REJEC #### [address] [id number] Turning Machine Operator: Jasbir Montalvo MD Lymphocytes (Bld) [#/Vol] 2.76 10*3/uL Normal 1.10-3.70 [facility] Comment on above: Performed By: #### P HO, CDP, RA, PT, SED, BMPX, FREDA, MG, LD, CRP, FEBC, B12FOL, PTT, C4, CCPAB, FERI, IOCAL, CORTI, CK, C3, REJEC #### [address] [phone] Turning Machine Operator: Jasbir Montalvo MD Lymphocytes/100 WBC (Bld) 25 % Normal 24-43 [facility] Comment on above: Performed By: #### P HO, CDP, RA, PT, SED, BMPX, FREDA, MG, LD, CRP, FEBC, B12FOL, PTT, C4, CCPAB, FERI, IOCAL, CORTI, CK, C3, REJEC #### [place] [id number] Turning Machine Operator: Jasbir Montalvo MD MCH (RBC) [Entitic mass] 31.2 pg Normal 25.2-33.5 [facility] Comment on above: Performed By: #### P HO, CDP, RA, PT, SED, BMPX, FREDA, MG, LD, CRP, FEBC, B12FOL, PTT, C4, CCPAB, FERI, IOCAL, CORTI, CK, C3, REJEC #### [address] [phone] Turning Machine Operator: Jasbir Montalvo MD MCHC (RBC) [Mass/Vol] 31.5 g/dL Normal 28.4-34.8 [facility] Comment on above: Performed By: #### P HO, CDP, RA, PT, SED, BMPX, FREDA, MG, LD, CRP, FEBC, B12FOL, PTT, C4, CCPAB, FERI, IOCAL, CORTI, CK, C3, REJEC #### [address] [phone] Turning Machine Operator: Jasibr Montalvo MD MCV (RBC) [Entitic vol] 98.9 fL Normal 82.6-102.9 [facility] Comment on above: Performed By: #### P HO, CDP, RA, PT, SED, BMPX, FREDA, MG, LD, CRP, FEBC, B12FOL, PTT, C4, CCPAB, FERI, IOCAL, CORTI, CK, C3, REJEC #### [address] [id number] Turning Machine Operator: Jasbir Montalvo MD Monocytes (Bld) [#/Vol] 0.82 10*3/uL Normal 0.10-1.20 [facility] Comment on above: Performed By: #### P HO, CDP, RA, PT, SED, BMPX, FREDA, MG, LD, CRP, FEBC, B12FOL, PTT, C4, CCPAB, FERI, IOCAL, CORTI, CK, C3, REJEC #### [address] [id number] Turning Machine Operator: Jasbir Montalvo MD Monocytes/100 WBC (Bld) 8 % Normal 3-12 [facility] Comment on above: Performed By: #### P HO, CDP, RA, PT, SED, BMPX, FREDA, MG, LD, CRP, FEBC, B12FOL, PTT, C4, CCPAB, FERI, IOCAL, CORTI, CK, C3, REJEC #### [address] [phone] Turning Machine Operator: Jasbir Montalvo MD Neutrophil (Seg) 63 % Normal 36-65 [facility] Comment on above: Performed By: #### P HO, CDP, RA, PT, SED, BMPX, FREDA, MG, LD, CRP, FEBC, B12FOL, PTT, C4, CCPAB, FERI, IOCAL, CORTI, CK, C3, REJEC #### [address] [id number] Turning Machine Operator: Jasbir Montalvo MD NRBC Automated 0.0 per 100 WBC Normal 0.0 [facility] Comment on above: Performed By: #### P HO, CDP, RA, PT, SED, BMPX, FREDA, MG, LD, CRP, FEBC, B12FOL, PTT, C4, CCPAB, FERI, IOCAL, CORTI, CK, C3, REJEC #### [address] [phone] Turning Machine Operator: Jasbir Montalvo MD Platelet mean volume (Bld) [Entitic vol] 10.4 fL Normal 8.1-13.5 [facility] Comment on above: Performed By: #### P HO, CDP, RA, PT, SED, BMPX, FREDA, MG, LD, CRP, FEBC, B12FOL, PTT, C4, CCPAB, FERI, IOCAL, CORTI, CK, C3, REJEC #### [address] [phone] Turning Machine Operator: Jasbir Montalvo MD Platelets (Bld) [#/Vol] 223 10*3/uL Normal 138-453 [facility] Comment on above: Performed By: #### P HO, CDP, RA, PT, SED, BMPX, FREDA, MG, LD, CRP, FEBC, B12FOL, PTT, C4, CCPAB, FERI, IOCAL, CORTI, CK, C3, REJEC #### [address] [phone] Turning Machine Operator: Jasbir Montalvo MD RBC (Bld) [#/Vol] 4.68 10*6/uL Normal 4.21-5.77 [facility] Comment on above: Performed By: #### P HO, CDP, RA, PT, SED, BMPX, FREDA, MG, LD, CRP, FEBC, B12FOL, PTT, C4, CCPAB, FERI, IOCAL, CORTI, CK, C3, REJEC #### [address] [phone] Turning Machine Operator: Jasbir Montalvo MD WBC (Bld) [#/Vol] 10.9 10*3/uL Normal 3.5-11.3 [facility] Comment on above: Performed By: #### P HO, CDP, RA, PT, SED, BMPX, FREDA, MG, LD, CRP, FEBC, B12FOL, PTT, C4, CCPAB, FERI, IOCAL, CORTI, CK, C3, REJEC #### [address] [id number] Turning Machine Operator: Jasbir Montalvo MD CT CERVICAL SPINE WO CONTRAS Ton 12-01-2023 CT CERVICAL SPINE WO CONTRAST EXAMINATION: CT OF THE CERVICAL SPINE WITHOUT CONTRAST 12/01/2023 8:33 am TECHNIQUE: CT of the cervical spine was performed without the administration of intravenous contrast. Multiplanar reformatted images are provided for review. Automated exposure control, iterative reconstruction, and/or weight based adjustment of the mA/kV was utilized to reduce the radiation dose to as low as reasonably achievable. COMPARISON: None. HISTORY: ORDERING SYSTEM PROVIDED HISTORY: rule out myelopathy, radiculopathy. cannot have DISTRICT MEDICAL EXAMINER PROVIDED HISTORY: rule out myelopathy, radiculopathy. cannot have MRI FINDINGS: loss of the cervical lordosis. No fracture or subluxation. Facets are normally aligned. Odontoid is intact. Spinous processes are intact. No prevertebral soft tissue swelling. Lung apices are clear. Skull base is intact Craniocervical junction is intact. C1-2 is unremarkable C 2-3 anterior spurring at C2-3. Mild posterior spurring. C3-4 anterior spurring. Facet arthropathy uncinate spurs are more prominent on the right. Mild canal effacement. C4-5 unremarkable C5-6 loss of disc space height. Posterior spondylotic bar. Mild facet arthropathy. C6-7 posterior spondylotic bar. Mild canal effacement. C7-T1 facet arthropathy.. Mild bilateral foraminal narrowing IMPRESSION: Canal effacement at C6-7. Interpreted by: Erica Garcia MD Signed by: Erica Garcia MD 12/01/23 Final result Normal [facility] CT Cervical spine WO contras ton 12-01-2023 Canal effacement at C6-7. [facility] RIS CONSOLIDATED EXAMINATION: CT OF THE CERVICAL SPINE WITHOUT CONTRAST 12/01/2023 8:33 am TECHNIQUE: CT of the cervical spine was performed without the administration of intravenous contrast. Multiplanar reformatted images are provided for review. Automated exposure control, iterative reconstruction, and/or weight based adjustment of the mA/kV was utilized to reduce the radiation dose to as low as reasonably achievable. COMPARISON: None. HISTORY: ORDERING SYSTEM PROVIDED HISTORY: rule out myelopathy, radiculopathy. cannot have DISTRICT MEDICAL EXAMINER PROVIDED HISTORY: rule out myelopathy, radiculopathy. cannot have MRI FINDINGS: loss of the cervical lordosis. No fracture or subluxation. Facets are normally aligned. Odontoid is intact. Spinous processes are intact. No prevertebral soft tissue swelling. Lung apices are clear. Skull base is intact Craniocervical junction is intact. C1-2 is unremarkable C 2-3 anterior spurring at C2-3. Mild posterior spurring. C3-4 anterior spurring. Facet arthropathy uncinate spurs are more prominent on the right. Mild canal effacement. C4-5 unremarkable C5-6 loss of disc space height. Posterior spondylotic bar. Mild facet arthropathy. C6-7 posterior spondylotic bar. Mild canal effacement. C7-T1 facet arthropathy.. Mild bilateral foraminal narrowing [facility] RIS CONSOLIDATED Erica Garcia MD - 12/01/2023 EXAMINATION: CT OF THE CERVICAL SPINE WITHOUT CONTRAST 12/01/2023 8:33 am TECHNIQUE: CT of the cervical spine was performed without the administration of intravenous contrast. Multiplanar reformatted images are provided for review. Automated exposure control, iterative reconstruction, and/or weight based adjustment of the mA/kV was utilized to reduce the radiation dose to as low as reasonably achievable. COMPARISON: None. HISTORY: ORDERING SYSTEM PROVIDED HISTORY: rule out myelopathy, radiculopathy. cannot have DISTRICT MEDICAL EXAMINER PROVIDED HISTORY: rule out myelopathy, radiculopathy. cannot have MRI FINDINGS: loss of the cervical lordosis. No fracture or subluxation. Facets are normally aligned. Odontoid is intact. Spinous processes are intact. No prevertebral soft tissue swelling. Lung apices are clear. Skull base is intact Craniocervical junction is intact. C1-2 is unremarkable C 2-3 anterior spurring at C2-3. Mild posterior spurring. C3-4 anterior spurring. Facet arthropathy uncinate spurs are more prominent on the right. Mild canal effacement. C4-5 unremarkable C5-6 loss of disc space height. Posterior spondylotic bar. Mild facet arthropathy. C6-7 posterior spondylotic bar. Mild canal effacement. C7-T1 facet arthropathy.. Mild bilateral foraminal narrowing IMPRESSION: Canal effacement at C6-7. [facility] Study observation (narrative) [facility] Cervical spine NATASHA mcintyre tOrdered By: Erica Garcia on 12-01-2023 [facility] Work Phone: CYCLIC CITRUL PEPTIDE ANTIBO DY, IGGon 12-01-2023 Cyclic citrullinated peptide Ab IA Qn (S) 1.5 U/mL 0.0 - 7.0 U/mL [facility] Comment on above: Reference Range: <7.0 Negative 7.0-10.0 Equivocal >10.0 Positive [facility] [employer] [facility] [place] MODIFIED BARIUM SWALLOW W VIDEOon 12-01-2023 [place] MODIFIED BARIUM SWALLOW W VIDEO EXAMINATION: MODIFIED BARIUM SWALLOW WAS PERFORMED IN CONJUNCTION WITH [employer]OLOGY SERVICES TECHNIQUE: Under fluoroscopic evaluation cineradiography/videoradio graphy recordings were performed in conjunction with the speech-language pathologist (MEDICAL VIDEOGRAPHER). Various liquid, solid and/or semi-solid barium preparations were used to assess swallowing function. FLUOROSCOPY DOSE AND TYPE: Fluoro time: 2.2 minutes DAP: 123.510 dGycm2 Air kerma: 26.040 mGy COMPARISON: 12/23/2014 HISTORY: ORDERING SYSTEM PROVIDED HISTORY: aspiration TECHNOLOGIST PROVIDED HISTORY: aspiration 63-year-old male with history of aspiration FINDINGS: No penetration or aspiration with the nectar thick substance by straw, thin liquid substance by cup, pureed/pudding thick, soft solid and cookie solid substances. Trace penetration without aspiration with the thin liquid substance by straw. IMPRESSION: 1. Trace penetration without aspiration with the thin liquid substance by straw. 2. No penetration or aspiration with the above administered substances. Please see separate speech pathology report for full discussion of findings and recommendations. Interpreted by: Micah Davis MD Signed by: Micah Davis MD 12/01/23 Final result Normal [facility] 1. Trace penetration without aspiration with the thin liquid substance by straw. 2. No penetration or aspiration with the above administered substances. Please see separate speech pathology report for full discussion of findings and recommendations. [facility] EXAMINATION: MODIFIED BARIUM SWALLOW WAS PERFORMED IN CONJUNCTION WITH SPEECH PATHOLOGY SERVICES TECHNIQUE: Under fluoroscopic evaluation cineradiography/videoradio graphy recordings were performed in conjunction with the speech-language pathologist (MEDICAL VIDEOGRAPHER). Various liquid, solid and/or semi-solid barium preparations were used to assess swallowing function. FLUOROSCOPY DOSE AND TYPE: Fluoro time: 2.2 minutes DAP: 123.510 dGycm2 Air kerma: 26.040 mGy COMPARISON: 12/23/2014 HISTORY: ORDERING SYSTEM PROVIDED HISTORY: aspiration TECHNOLOGIST PROVIDED HISTORY: aspiration 63-year-old male with history of aspiration FINDINGS: No penetration or aspiration with the nectar thick substance by straw, thin liquid substance by cup, pureed/pudding thick, soft solid and cookie solid substances. Trace penetration without aspiration with the thin liquid substance by straw. [facility] Micah Davis MD - 12/01/2023 EXAMINATION: MODIFIED BARIUM SWALLOW WAS PERFORMED IN CONJUNCTION WITH SPEECH PATHOLOGY SERVICES TECHNIQUE: Under fluoroscopic evaluation cineradiography/videoradio graphy recordings were performed in conjunction with the speech-language pathologist (MEDICAL VIDEOGRAPHER). Various liquid, solid and/or semi-solid barium preparations were used to assess swallowing function. FLUOROSCOPY DOSE AND TYPE: Fluoro time: 2.2 minutes DAP: 123.510 dGycm2 Air kerma: 26.040 mGy COMPARISON: 12/23/2014 HISTORY: ORDERING SYSTEM PROVIDED HISTORY: aspiration TECHNOLOGIST PROVIDED HISTORY: aspiration 63-year-old male with history of aspiration FINDINGS: No penetration or aspiration with the nectar thick substance by straw, thin liquid substance by cup, pureed/pudding thick, soft solid and cookie solid substances. Trace penetration without aspiration with the thin liquid substance by straw. IMPRESSION: 1. Trace penetration without aspiration with the thin liquid substance by straw. 2. No penetration or aspiration with the above administered substances. Please see separate speech pathology report for full discussion of findings and recommendations. [facility] Radiology Study observation (narrative) [facility] DOZ [place] MODIFIED BARIUM SWALLOW W VIDEOOrdered By: Micah Davis on 12-01-2023 [facility] FMS [facility] DOZ Work Phone: Glucose,Whole Bloodon 2023 Glucose [Mass/Vol] 168 mg/dL High 75-110 [facility] Glucose [Mass/Vol] 108 mg/dL Normal 75-110 [facility] Glucose [Mass/Vol] 226 mg/dL High 75-110 [facility] Glucose [Mass/Vol] 150 mg/dL High 75-110 [facility] Glucose [Mass/Vol] 148 mg/dL High 75-110 [facility] POC Glucose Fingerstickon Glucose [Mass/Vol] 168 mg/dL High 75 - 110 mg/dL [facility] Interpretation and review of laboratory results Abnormal [facility] Glucose [Mass/Vol] 108 mg/dL 75 - 110 mg/dL [facility] Glucose [Mass/Vol] 226 mg/dL High 75 - 110 mg/dL [facility] Interpretation and review of laboratory results Abnormal [facility] Glucose [Mass/Vol] 150 mg/dL High 75 - 110 mg/dL [facility] Interpretation and review of laboratory results Abnormal [facility] Glucose [Mass/Vol] 148 mg/dL High 75 - 110 mg/dL [facility] Interpretation and review of laboratory results Abnormal [facility] PSA Screeningon 12-01-2023 Prostate specific Ag [Mass/Vol] 1.50 ng/mL 0.00 - 4.00 ng/mL [facility] Comment on above: The Saray ECLIA as say is used. Results obtained with different assay methods cannot be used interchangeably. [facility] PSA, Screeningon 12-01-2023 Prostatic Spec. Ag 1.50 ng/mL Normal 0.00-4.00 [facility] Comment on above: Result Comment: The Saray ECLIA assay is used. Results obtained with different assay methods cannot be used interchangeably. Performed By: #### P HO, CDP, RA, PT, SED, BMPX, FREDA, MG, LD, CRP, FEBC, B12FOL, PTT, C4, CCPAB, FERI, IOCAL, CORTI, CK, C3, REJEC #### [facility] [address] [place] [id number] Turning Machine Operator: Jasbir Montalvo MD PTon 12-01-2023 INR Coag (PPP) [Relative time] 2.8 {INR} Normal [facility] Comment on above: Result Comment: Therapeutic Range: Moderate Anticoagulant Intensity: INR = 2.0-3.0 High Anticoagulant Intensity: INR = 2.5-3.5 Performed By: #### P HO, CDP, RA, PT, SED, BMPX, FREDA, MG, LD, CRP, FEBC, B12FOL, PTT, C4, CCPAB, FERI, IOCAL, CORTI, CK, C3, REJEC #### [employer] [address] [place] [address] Turning Machine Operator: Jasbir Montalvo MD PT Coag (PPP) [Time] 28.5 s High 11.7-14.9 [facility] Comment on above: Performed By: #### P HO, CDP, RA, PT, SED, BMPX, FREDA, MG, LD, CRP, FEBC, B12FOL, PTT, C4, CCPAB, FERI, IOCAL, CORTI, CK, C3, REJEC #### [employer] [facility] [place], [place] [id number] Turning Machine Operator: Jasbir Montalvo MD Protime-INRon 12-01-2023 INR Coag (PPP) [Relative time] 2.8 {INR} [facility] Comment on above: Therapeutic Range: Moderate Anticoagulant Intensity: INR = 2.0-3.0 High Anticoagulant Intensity: INR = 2.5-3.5 Interpretation and review of laboratory results Abnormal [facility] PT Coag (PPP) [Time] 28.5 s High [facility] Troponinon 12-01-2023 Troponin, High Sens 23 ng/L High 0-22 [facility] Comment on above: Result Comment: High Sensitivity Troponin values cannot be compared with other Troponin methodologies. Performed By: #### P HO, CDP, RA, PT, SED, BMPX, FREDA, MG, LD, CRP, FEBC, B12FOL, PTT, C4, CCPAB, FERI, IOCAL, CORTI, CK, C3, REJEC #### [employer] [facility] [place], [place] [id number] Turning Machine Operator: Jasbir Montalvo MD Interpretation and review of laboratory results Abnormal [facility] Troponin I.cardiac High sensitivity method [Mass/Vol] 23 ng/L High 0 - 22 ng/L [facility] Comment on above: High Sensitivity Tro ponin values cannot be compared with other Troponin methodologies. [facility] APTTon 11-30-2023 aPTT Coag (Bld) [Time] 38.4 s High 23.0-36.5 [facility] Comment on above: Result Comment: IV Heparin Therapy Range: 66.0-92.0 sec Performed By: #### P HO, CDP, RA, PT, SED, BMPX, FREDA, MG, LD, CRP, FEBC, B12FOL, PTT, C4, CCPAB, FERI, IOCAL, CORTI, CK, C3, REJEC ####[employer] [place] [address] [id number] Lab Director: Jasbir Montalvo MD aPTT Coag (Bld) [Time] 38.4 s High [facility] Comment on above: IV Heparin Therapy Range: 66.0-92.0 sec B12/Folate Panelon 4 Cobalamin (Vitamin B12) [Mass/Vol] 397 pg/mL Normal 232-1245 [facility] Comment on above: Performed By: #### P HO, CDP, RA, PT, SED, BMPX, FREDA, MG, LD, CRP, FEBC, B12FOL, PTT, C4, CCPAB, FERI, IOCAL, CORTI, CK, C3, REJEC ####[facility] [address] [place] [address] lab Director: Jasbir Montalvo MD Folic Acid 6.2 ng/mL Normal >4.8 [facility] Comment on above: Performed By: #### P HO, CDP, RA, PT, SED, BMPX, FREDA, MG, LD, CRP, FEBC, B12FOL, PTT, C4, CCPAB, FERI, IOCAL, CORTI, CK, C3, REJEC ####[facility] [address] [place] [address] lab Director: Jasbir Montalvo MD BLOOD GAS, VENOUSon 11-30-19 24 Carboxyhemoglobin (Bld) [Mass fraction] 1.6 % 0 - 5 % [facility] Comment on above: Reference Range: Non-Smokers 0-2% Average Smoker 2-4% Heavy Smoker <10% HCO3 (Bld) [Moles/Vol] 26.1 mmol/L 24 - 30 mmol/L [facility] Interpretation and review of laboratory results Abnormal [facility] Negative Base Excess, Pop 1.1 mmol/L 0.0 - 2.0 mmol/L [facility] Oxygen saturation in Blood 84.3 % 60.0 - 85.0 % [facility] Oxygen/Inspired gas Respiratory system --on ventilator INFORMATION NOT PROVIDED [facility] pCO2, Pop 55.2 High [facility] pH, Pop 7.297 Low 7.320 - 7.420 [facility] pO2, Pop 55.2 High [facility] Basic Metab w/rfx MGon 11-30 Glucose [Mass/Vol] 49 mg/dL Low 70-99 [facility] Comment on above: Performed By: #### P HO, CDP, RA, PT, SED, BMPX, FREDA, MG, LD, CRP, FEBC, B12FOL, PTT, C4, CCPAB, FERI, IOCAL, CORTI, CK, C3, REJEC ####[facility] [address] [place] [address] [phone] Lab Director: Jasbir Montalvo MD Anion gap [Moles/Vol] 11 mmol/L Normal 9-17 [facility] Comment on above: Performed By: #### P HO, CDP, RA, PT, SED, BMPX, FREDA, MG, LD, CRP, FEBC, B12FOL, PTT, C4, CCPAB, FERI, IOCAL, CORTI, CK, C3, REJEC ####[facility] [address] [place] [address] [id number] Lab Director: Jasbir Montalvo MD Calcium [Mass/Vol] 8.9 mg/dL Normal 8.6-10.4 [facility] Comment on above: Performed By: #### P HO, CDP, RA, PT, SED, BMPX, FREDA, MG, LD, CRP, FEBC, B12FOL, PTT, C4, CCPAB, FERI, IOCAL, CORTI, CK, C3, REJEC ####[facility] [address] [place] [address] [id number] Lab Director: Jasbir Montalvo MD Chloride [Moles/Vol] 114 mmol/L High 98-107 [facility] Comment on above: Performed By: #### P HO, CDP, RA, PT, SED, BMPX, FREDA, MG, LD, CRP, FEBC, B12FOL, PTT, C4, CCPAB, FERI, IOCAL, CORTI, CK, C3, REJEC ####[address] [id number] Lab Director: Jasbir Montalvo MD CO2 [Moles/Vol] 21 mmol/L Normal 20-31 [facility] Comment on above: Performed By: #### P HO, CDP, RA, PT, SED, BMPX, FREDA, MG, LD, CRP, FEBC, B12FOL, PTT, C4, CCPAB, FERI, IOCAL, CORTI, CK, C3, REJEC ####[address] [id number] lab Director: Jasbir Montalvo MD Creatinine [Mass/Vol] 1.5 mg/dL High 0.7-1.2 [facility] Comment on above: Performed By: #### P HO, CDP, RA, PT, SED, BMPX, FREDA, MG, LD, CRP, FEBC, B12FOL, PTT, C4, CCPAB, FERI, IOCAL, CORTI, CK, C3, REJEC ####[address] [id number] lab Director: Jasbir Montalvo MD GFR/1.73 sq M.predicted among non-blacks MDRD (S/P/Bld) [Vol rate/Area] 52 mL/min/{1.73_m2} Low >60 [facility] Comment on above: Result Comment: These results are not intended for use in patients <18 years of age. eGFR results are calculated without a race factor using the 2020 CKD-EPI equation. Careful clinical correlation is recommended, particularly when comparing to results calculated using previous equations. The CKD-EPI equation is less accurate in patients with extremes of muscle mass, extra-renal metabolism of creatine, excessive creatine ingestion, or following therapy that affects renal tubular secretion. Performed By: #### P HO, CDP, RA, PT, SED, BMPX, FREDA, MG, LD, CRP, FEBC, B12FOL, PTT, C4, CCPAB, FERI, IOCAL, CORTI, CK, C3, REJEC ####[address] [address] Lab Director: Jasbir Montalvo MD Potassium [Moles/Vol] 3.7 mmol/L Normal 3.7-5.3 [facility] Comment on above: Performed By: #### P HO, CDP, RA, PT, SED, BMPX, FREDA, MG, LD, CRP, FEBC, B12FOL, PTT, C4, CCPAB, FERI, IOCAL, CORTI, CK, C3, REJEC ####[facility] [address] [place], [place] [phone] Lab Director: Jasbir Montalvo MD Sodium [Moles/Vol] 146 mmol/L High 135-144 [facility] Comment on above: Performed By: #### P HO, CDP, RA, PT, SED, BMPX, FREDA, MG, LD, CRP, FEBC, B12FOL, PTT, C4, CCPAB, FERI, IOCAL, CORTI, CK, C3, REJEC ####[facility] [address] [place], [place] [phone] lab Director: Jasbir Montalvo MD Urea nitrogen [Mass/Vol] 37 mg/dL High 8-23 [facility] Comment on above: Performed By: #### P HO, CDP, RA, PT, SED, BMPX, FREDA, MG, LD, CRP, FEBC, B12FOL, PTT, C4, CCPAB, FERI, IOCAL, CORTI, CK, C3, REJEC ####[id number] [place], [place] [id number] Lab Director: Jasbir Montalvo MD Basic Metabolic Panel w/ Ref sarah to MGon 11-30-2023 Anion gap [Moles/Vol] 11 mmol/L 9 - 17 mmol/L [facility] Calcium [Mass/Vol] 8.9 mg/dL 8.6 - 10. 4 mg/dL [facility] Chloride [Moles/Vol] 114 mmol/L High 98 - 107 mmol/L [employer] [facility] CO2 [Moles/Vol] 21 mmol/L 20 - 31 mmol/L [facility] Creatinine [Mass/Vol] 1.5 mg/dL High 0.7 - 1.2 mg/dL [facility] GFR/1.73 sq M.predicted MDRD (S/P/Bld) [Vol rate/Area] 52 mL/min/{1.73_m2} Low - PINF [facility] Comment on above: These results are not intended for use in patients <18 years of age. eGFR results are calculated without a race factor using the 2020 CKD-EPI equation. Careful clinical correlation is recommended, particularly when comparing to results calculated using previous equations. The CKD-EPI equation is less accurate in patients with extremes of muscle mass, extra-renal metabolism of creatine, excessive creatine ingestion, or following therapy that affects renal tubular secretion. Glucose [Mass/Vol] 49 mg/dL Low 70 - 99 mg/dL [facility] Interpretation and review of laboratory results Abnormal [facility] Potassium [Moles/Vol] 3.7 mmol/L 3.7 - 5.3 mmol/L [facility] Sodium [Moles/Vol] 146 mmol/L High 135 - 144 mmol/L [facility] Urea nitrogen [Mass/Vol] 37 mg/dL High 8 - 23 mg/dL [facility] C-Reactive Proteinon 024 CRP [Mass/Vol] 4.8 mg/L Normal 0.0-5.0 [facility] Comment on above: Performed By: #### P HO, CDP, RA, PT, SED, BMPX, FREDA, MG, LD, CRP, FEBC, B12FOL, PTT, C4, CCPAB, FERI, IOCAL, CORTI, CK, C3, REJEC #### [facility] [address] [place] [address] Turning Machine Operator: Jasbir Montalvo MD CRP High sensitivity method [Mass/Vol] 4.8 mg/L 0.0 - 5.0 mg/L [facility] C3on 11-30-2023 C3 146 mg/dL Normal 90-180 [facility] Comment on above: Performed By: #### P HO, CDP, RA, PT, SED, BMPX, FREDA, MG, LD, CRP, FEBC, B12FOL, PTT, C4, CCPAB, FERI, IOCAL, CORTI, CK, C3, REJEC #### [facility] [place], [place] [id number] Turning Machine Operator: Jasbir Montalvo MD C3 COMPLEMENTon 11-30-2023 Complement C3 [Mass/Vol] 146 mg/dL 90 - 180 mg/dL [facility] C4on 11-30-2023 C4 24 mg/dL Normal 10-40 [facility] Comment on above: Performed By: #### P HO, CDP, RA, PT, SED, BMPX, FREDA, MG, LD, CRP, FEBC, B12FOL, PTT, C4, CCPAB, FERI, IOCAL, CORTI, CK, C3, REJEC #### [facility] [employer] [facility] [place] [address] Turning Machine Operator: aJsbir Montalvo MD C4 COMPLEMENTon 11-30-2023 Complement C4 [Mass/Vol] 24 mg/dL 10 - 40 mg/dL [facility] CBC with Auto Differentialon 11-30-2023 Basophils (Bld) [#/Vol] 0.08 10*3/uL [facility] Basophils/100 WBC (Bld) 1 % 0 - 2 % [facility] Eosinophils (Bld) [#/Vol] 0.31 10*3/uL [facility] Eosinophils/100 WBC (Bld) 3 % 1 - 4 % [facility] Erythrocyte distribution width (RBC) [Ratio] 14.2 % 11.8 - 14.4 % [facility] Hematocrit (Bld) [Volume fraction] 49.3 % 40.7 - 50.3 % [facility] Hemoglobin (Bld) [Mass/Vol] 15.4 g/dL 13.0 - 17.0 g/dL [facility] Immature granulocytes (Bld) [#/Vol] [facility] Immature granulocytes/100 WBC (Bld) 0 % 0 [facility] Lymphocytes/100 WBC (Bld) 26 % 24 - 43 % [facility] Lymphocytes/100 WBC (Bld) 2.64 % [facility] MCH (RBC) [Entitic mass] 31.2 pg 25.2 - 33.5 pg [facility] MCHC (RBC) [Mass/Vol] 31.2 g/dL 28.4 - 34.8 g/dL [facility] MCV (RBC) [Entitic vol] 99.8 fL 82.6 - 102.9 fL [facility] Monocytes/100 WBC (Bld) 7 % 3 - 12 % [facility] Monocytes/100 WBC (Bld) 0.74 % [facility] Neutrophils/100 WBC (Bld) 63 % 36 - 65 % [facility] Nucleated RBC/100 WBC (Bld) [Ratio] 0.0 % 0.0 per 100 WBC [facility] Platelet mean volume (Bld) [Entitic vol] 10.0 fL 8.1 - 13.5 fL [facility] Platelets (Bld) [#/Vol] 214 10*3/uL [facility] RBC (Bld) [#/Vol] 4.94 10*6/uL 4.21 - 5.7 7 m/uL [facility] Segmented neutrophils/100 WBC (Bld) 6.30 % [facility] WBC other (Bld) [#/Vol] 10.1 [facility] CBC with Diffon 11-30-2023 Abs. Basophil 0.08 k/uL Normal 0.00-0.20 [facility] Comment on above: Performed By: #### P HO, CDP, RA, PT, SED, BMPX, FREDA, MG, LD, CRP, FEBC, B12FOL, PTT, C4, CCPAB, FERI, IOCAL, CORTI, CK, C3, REJEC #### [employer] [facility] [place] [address] Turning Machine Operator: Jasbir Montalvo MD Abs.Imm.Granulocyte <0.03 Normal 0.00-0.30 [facility] Comment on above: Performed By: #### P HO, CDP, RA, PT, SED, BMPX, FREDA, MG, LD, CRP, FEBC, B12FOL, PTT, C4, CCPAB, FERI, IOCAL, CORTI, CK, C3, REJEC #### [employer] [address] [place] [address] Turning Machine Operator: Jasbir Montalvo MD Abs.Neutrophil (Seg) 6.30 k/uL Normal 1.50-8.10 [facility] Comment on above: Performed By: #### P HO, CDP, RA, PT, SED, BMPX, FREDA, MG, LD, CRP, FEBC, B12FOL, PTT, C4, CCPAB, FERI, IOCAL, CORTI, CK, C3, REJEC #### [facility] [employer] [address] [place] [id number] Turning Machine Operator: Jasbir Montalvo MD Basophils/100 WBC (Bld) 1 % Normal 0-2 [facility] Comment on above: Performed By: #### P HO, CDP, RA, PT, SED, BMPX, FREDA, MG, LD, CRP, FEBC, B12FOL, PTT, C4, CCPAB, FERI, IOCAL, CORTI, CK, C3, REJEC #### [facility] [employer] [address] [place] [address] Turning Machine Operator: Jasbir Montalvo MD Eosinophils (Bld) [#/Vol] 0.31 10*3/uL Normal 0.00-0.44 [facility] Comment on above: Performed By: #### P HO, CDP, RA, PT, SED, BMPX, FREDA, MG, LD, CRP, FEBC, B12FOL, PTT, C4, CCPAB, FERI, IOCAL, CORTI, CK, C3, REJEC #### [facility] [employer] [address] [place] [address] Turning Machine Operator: Jasbir Montalvo MD Eosinophils/100 WBC (Bld) 3 % Normal 1-4 [facility] Comment on above: Performed By: #### P HO, CDP, RA, PT, SED, BMPX, FREDA, MG, LD, CRP, FEBC, B12FOL, PTT, C4, CCPAB, FERI, IOCAL, CORTI, CK, C3, REJEC #### [facility] [employer] [address] [place] [id number] Turning Machine Operator: Jasbir Montalvo MD Erythrocyte distribution width (RBC) [Ratio] 14.2 % Normal 11.8-14.4 [facility] Comment on above: Performed By: #### P HO, CDP, RA, PT, SED, BMPX, FREDA, MG, LD, CRP, FEBC, B12FOL, PTT, C4, CCPAB, FERI, IOCAL, CORTI, CK, C3, REJEC #### [address] [address] Turning Machine Operator: Jasbir Montalvo MD Hematocrit (Bld) [Volume fraction] 49.3 % Normal 40.7-50.3 [facility] Comment on above: Performed By: #### P HO, CDP, RA, PT, SED, BMPX, FREDA, MG, LD, CRP, FEBC, B12FOL, PTT, C4, CCPAB, FERI, IOCAL, CORTI, CK, C3, REJEC #### [facility] [employer] [address] [place] [address] Turning Machine Operator: Jasbir Montalvo MD Hemoglobin (Bld) [Mass/Vol] 15.4 g/dL Normal 13.0-17.0 [facility] Comment on above: Performed By: #### P HO, CDP, RA, PT, SED, BMPX, FREDA, MG, LD, CRP, FEBC, B12FOL, PTT, C4, CCPAB, FERI, IOCAL, CORTI, CK, C3, REJEC #### [facility] [employer] [address] [place] [address] Turning Machine Operator: Jasbir Montalvo MD Immature granulocytes/100 WBC (Bld) 0 % Normal 0 [facility] Comment on above: Performed By: #### P HO, CDP, RA, PT, SED, BMPX, FREDA, MG, LD, CRP, FEBC, B12FOL, PTT, C4, CCPAB, FERI, IOCAL, CORTI, CK, C3, REJEC #### [address] [address] Turning Machine Operator: Jasbir Montalvo MD Lymphocytes (Bld) [#/Vol] 2.64 10*3/uL Normal 1.10-3.70 [facility] Comment on above: Performed By: #### P HO, CDP, RA, PT, SED, BMPX, FREDA, MG, LD, CRP, FEBC, B12FOL, PTT, C4, CCPAB, FERI, IOCAL, CORTI, CK, C3, REJEC #### [address] [address] Turning Machine Operator: Jasbir Montalvo MD Lymphocytes/100 WBC (Bld) 26 % Normal 24-43 [facility] Comment on above: Performed By: #### P HO, CDP, RA, PT, SED, BMPX, FREDA, MG, LD, CRP, FEBC, B12FOL, PTT, C4, CCPAB, FERI, IOCAL, CORTI, CK, C3, REJEC #### [address] [address] Turning Machine Operator: Jasbir Montalvo MD MCH (RBC) [Entitic mass] 31.2 pg Normal 25.2-33.5 [facility] Comment on above: Performed By: #### P HO, CDP, RA, PT, SED, BMPX, FREDA, MG, LD, CRP, FEBC, B12FOL, PTT, C4, CCPAB, FERI, IOCAL, CORTI, CK, C3, REJEC #### [address] [address] Turning Machine Operator: Jasbir Montalvo MD MCHC (RBC) [Mass/Vol] 31.2 g/dL Normal 28.4-34.8 [facility] Comment on above: Performed By: #### P HO, CDP, RA, PT, SED, BMPX, FREDA, MG, LD, CRP, FEBC, B12FOL, PTT, C4, CCPAB, FERI, IOCAL, CORTI, CK, C3, REJEC #### [address] [address] Turning Machine Operator: Jasbir Montalvo MD MCV (RBC) [Entitic vol] 99.8 fL Normal 82.6-102.9 [facility] Comment on above: Performed By: #### P HO, CDP, RA, PT, SED, BMPX, FREDA, MG, LD, CRP, FEBC, B12FOL, PTT, C4, CCPAB, FERI, IOCAL, CORTI, CK, C3, REJEC #### [address] [address] Turning Machine Operator: Jasbir Montalvo MD Monocytes (Bld) [#/Vol] 0.74 10*3/uL Normal 0.10-1.20 [facility] Comment on above: Performed By: #### P HO, CDP, RA, PT, SED, BMPX, FREDA, MG, LD, CRP, FEBC, B12FOL, PTT, C4, CCPAB, FERI, IOCAL, CORTI, CK, C3, REJEC #### [address] [address] Turning Machine Operator: Jasbir Montalvo MD Monocytes/100 WBC (Bld) 7 % Normal 3-12 [facility] Comment on above: Performed By: #### P HO, CDP, RA, PT, SED, BMPX, FREDA, MG, LD, CRP, FEBC, B12FOL, PTT, C4, CCPAB, FERI, IOCAL, CORTI, CK, C3, REJEC #### [address] [address] Turning Machine Operator: Jasbir Montalvo MD Neutrophil (Seg) 63 % Normal 36-65 [facility] Comment on above: Performed By: #### P HO, CDP, RA, PT, SED, BMPX, FREDA, MG, LD, CRP, FEBC, B12FOL, PTT, C4, CCPAB, FERI, IOCAL, CORTI, CK, C3, REJEC #### [address] [address] Turning Machine Operator: Jasbir Montalvo MD NRBC Automated 0.0 per 100 WBC Normal 0.0 [facility] Comment on above: Performed By: #### P HO, CDP, RA, PT, SED, BMPX, FREDA, MG, LD, CRP, FEBC, B12FOL, PTT, C4, CCPAB, FERI, IOCAL, CORTI, CK, C3, REJEC #### [address] [address] [employer] Machine Operator: Jasbir Montalvo MD Platelet mean volume (Bld) [Entitic vol] 10.0 fL Normal 8.1-13.5 [facility] Comment on above: Performed By: #### P HO, CDP, RA, PT, SED, BMPX, FREDA, MG, LD, CRP, FEBC, B12FOL, PTT, C4, CCPAB, FERI, IOCAL, CORTI, CK, C3, REJEC #### [address] [address] [employer] Machine Operator: Jasbir Montalvo MD Platelets (Bld) [#/Vol] 214 10*3/uL Normal 138-453 [facility] Comment on above: Performed By: #### P HO, CDP, RA, PT, SED, BMPX, FREDA, MG, LD, CRP, FEBC, B12FOL, PTT, C4, CCPAB, FERI, IOCAL, CORTI, CK, C3, REJEC #### [address] [address] [employer] Machine Operator: Jasbir Montalvo MD RBC (Bld) [#/Vol] 4.94 10*6/uL Normal 4.21-5.77 [facility] Comment on above: Performed By: #### P HO, CDP, RA, PT, SED, BMPX, FREDA, MG, LD, CRP, FEBC, B12FOL, PTT, C4, CCPAB, FERI, IOCAL, CORTI, CK, C3, REJEC #### [facility] [place], [place] [id number] [employer] Operator: Jasbir Montalvo MD WBC (Bld) [#/Vol] 10.1 10*3/uL Normal 3.5-11.3 [facility] Comment on above: Performed By: #### P HO, CDP, RA, PT, SED, BMPX, FREDA, MG, LD, CRP, FEBC, B12FOL, PTT, C4, CCPAB, FERI, IOCAL, CORTI, CK, C3, REJEC #### [facility] [employer] [place], [place] [phone] Turning Machine Operator: Jasbir Montalvo MD [facility] CK [Catalytic activity/Vol] 69 U/L 39 - 308 U/L [facility] CT LUMBAR SPINE WO CONTRASTo n 11-30-2023 CT LUMBAR SPINE WO CONTRAST EXAMINATION: CT OF THE THORACIC SPINE WITHOUT CONTRAST; CT OF THE LUMBAR SPINE WITHOUT CONTRAST 11/30/2023 TECHNIQUE: CT of the thoracic spine was performed without the administration of intravenous contrast. Multiplanar reformatted images are provided for review. Automated exposure control, iterative reconstruction, and/or weight based adjustment of the mA/kV was utilized to reduce the radiation dose to as low as reasonably achievable.; CT of the lumbar spine was performed without the administration of intravenous contrast. Multiplanar reformatted images are provided for review. Adjustment of mA and/or kV according to patient size was utilized. Automated exposure control, iterative reconstruction, and/or weight based adjustment of the mA/kV was utilized to reduce the radiation dose to as low as reasonably achievable. COMPARISON: Chest 18 January 2015; chest 28 November 2023 HISTORY: ORDERING SYSTEM PROVIDED HISTORY: F/u weakness TECHNOLOGIST PROVIDED HISTORY: F/u weakness; ORDERING SYSTEM PROVIDED HISTORY: weakness TECHNOLOGIST PROVIDED HISTORY: weakness FINDINGS: CT thoracic spine: BONES/ALIGNMENT: A mild dextroscoliotic curvature in the midthoracic spine is noted. No acute fracture or traumatic malalignment is noted. Mild anterior loss in height in of T 10 of approximately 15% is noted, nonacute. Other vertebral bodies are well maintained in height. DEGENERATIVE CHANGES: Diffuse mild degenerative and degenerative disc changes are noted. No significant neural foraminal narrowing. No gross bony canal stenosis. SOFT TISSUES: No paraspinal mass is seen. Incidental hilar granulomatous changes are noted. CT lumbar spine: BONES/ALIGNMENT: Mild levo scoliotic curvature. No subluxation. The vertebral body heights are maintained. No osseous destructive lesion is seen. DEGENERATIVE CHANGES: Mild degenerative changes are present L3-L4 and L5-S1. Mild degenerative disc changes L4-L5 L5-S1. Disc protrusion L4-L5. SOFT TISSUES/RETROPERITONEUM: No paraspinal mass is seen. IMPRESSION: CT thoracic spine: Mild dextroscoliotic curvature. No acute fracture or traumatic malalignment. Chronic anterior loss in height of T10 of 15%. CT lumbar spine: No acute fracture or traumatic malalignment. Mild levo scoliotic curvature. Degenerative and degenerative disc changes L3 through S1. Interpreted by: Shanthi Mcdonough MD Signed by: Shanthi Mcdonough MD 11/30/23 Final result Normal [facility] CT THORACIC SPINE WO CONTRAS Ton 11-30-2023 CT THORACIC SPINE WO CONTRAST EXAMINATION: CT OF THE THORACIC SPINE WITHOUT CONTRAST; CT OF THE LUMBAR SPINE WITHOUT CONTRAST 11/30/2023 TECHNIQUE: CT of the thoracic spine was performed without the administration of intravenous contrast. Multiplanar reformatted images are provided for review. Automated exposure control, iterative reconstruction, and/or weight based adjustment of the mA/kV was utilized to reduce the radiation dose to as low as reasonably achievable.; CT of the lumbar spine was performed without the administration of intravenous contrast. Multiplanar reformatted images are provided for review. Adjustment of mA and/or kV according to patient size was utilized. Automated exposure control, iterative reconstruction, and/or weight based adjustment of the mA/kV was utilized to reduce the radiation dose to as low as reasonably achievable. COMPARISON: Chest 18 January 2015; chest 28 November 2023 HISTORY: ORDERING SYSTEM PROVIDED HISTORY: F/u weakness TECHNOLOGIST PROVIDED HISTORY: F/u weakness; ORDERING SYSTEM PROVIDED HISTORY: weakness TECHNOLOGIST PROVIDED HISTORY: weakness FINDINGS: CT thoracic spine: BONES/ALIGNMENT: A mild dextroscoliotic curvature in the midthoracic spine is noted. No acute fracture or traumatic malalignment is noted. Mild anterior loss in height in of T 10 of approximately 15% is noted, nonacute. Other vertebral bodies are well maintained in height. DEGENERATIVE CHANGES: Diffuse mild degenerative and degenerative disc changes are noted. No significant neural foraminal narrowing. No gross bony canal stenosis. SOFT TISSUES: No paraspinal mass is seen. Incidental hilar granulomatous changes are noted. CT lumbar spine: BONES/ALIGNMENT: Mild levo scoliotic curvature. No subluxation. The vertebral body heights are maintained. No osseous destructive lesion is seen. DEGENERATIVE CHANGES: Mild degenerative changes are present L3-L4 and L5-S1. Mild degenerative disc changes L4-L5 L5-S1. Disc protrusion L4-L5. SOFT TISSUES/RETROPERITONEUM: No paraspinal mass is seen. IMPRESSION: CT thoracic spine: Mild dextroscoliotic curvature. No acute fracture or traumatic malalignment. Chronic anterior loss in height of T10 of 15%. CT lumbar spine: No acute fracture or traumatic malalignment. Mild levo scoliotic curvature. Degenerative and degenerative disc changes L3 through S1. Interpreted by: Shanthi Mcdonough MD Signed by: Shanthi Mcdonough MD 11/30/23 Final result Normal [facility] Calcium, Ionicon 11-30-2023 Calcium [Moles/Vol] 1.21 mmol/L Normal 1.13-1.33 [facility] Comment on above: Performed By: #### P HO, CDP, RA, PT, SED, BMPX, FREDA, MG, LD, CRP, FEBC, B12FOL, PTT, C4, CCPAB, FERI, IOCAL, CORTI, CK, C3, REJEC ####[facility] [place] [address] [facility] Director: Jasbir Montalvo MD Calcium, Ionizedon Calcium.ionized (Bld) [Moles/Vol] 1.21 mmol/L 1.13 - 1.33 mmol/L [facility] Cortisolon 11-30-2023 Cortisol 15.5 ug/dL Normal 2.7-18.4 [facility] Comment on above: Result Comment: Cortisol Reference Range: AM 6.0-18.4 PM 2.7-10.5 Performed By: #### P HO, CDP, RA, PT, SED, BMPX, FREDA, MG, LD, CRP, FEBC, B12FOL, PTT, C4, CCPAB, FERI, IOCAL, CORTI, CK, C3, REJEC #### [employer] [employer] [address] [place] [id number] Turning Machine Operator: Jasbir Montalvo MD Cortisol Totalon 11-30-2023 Cortisol [Mass/Vol] 15.5 ug/dL 2.7 - 18 .4 ug/dL [facility] Comment on above: Cortisol Reference Range: AM 6.0-18.4 PM 2.7-10.5 Creatine Kinaseon 11-30-2023 CK [Catalytic activity/Vol] 69 U/L Normal 39-308 [facility] Comment on above: Performed By: #### P HO, CDP, RA, PT, SED, BMPX, FREDA, MG, LD, CRP, FEBC, B12FOL, PTT, C4, CCPAB, FERI, IOCAL, CORTI, CK, C3, REJEC #### [facility] [employer] [address] [place] [id number] Turning Machine Operator: Jasbir Montalvo MD Ferritinon 11-30-2023 Ferritin [Mass/Vol] 151 ng/mL Normal 30-400 [facility] Comment on above: Performed By: #### P HO, CDP, RA, PT, SED, BMPX, FREDA, MG, LD, CRP, FEBC, B12FOL, PTT, C4, CCPAB, FERI, IOCAL, CORTI, CK, C3, REJEC #### [facility] [employer] [address] [place] [id number] Turning Machine Operator: Jasbir Montalvo MD Ferritin [Mass/Vol] 151 ng/mL 30 - 400 ng/mL [facility] Glucose,Whole Bloodon 2023 Glucose [Mass/Vol] 231 mg/dL High 75-110 [facility] Glucose [Mass/Vol] 98 mg/dL Normal 75-110 [facility] Glucose [Mass/Vol] 154 mg/dL High 75-110 [facility] Glucose [Mass/Vol] 137 mg/dL High 75-110 [facility] Glucose [Mass/Vol] 55 mg/dL Low 75-110 [facility] Glucose [Mass/Vol] 48 mg/dL Low 75-110 [facility] Comment on above: Result Comment: Evaristo cannon Noted Iron Binding Cap.on 11-30-19 24 % Fe Saturation 24 % Normal 20-55 [facility] Comment on above: Performed By: #### P HO, CDP, RA, PT, SED, BMPX, FREDA, MG, LD, CRP, FEBC, B12FOL, PTT, C4, CCPAB, FERI, IOCAL, CORTI, CK, C3, REJEC #### [facility] [employer] [address] [place] [id number] Turning Machine Operator: Jasbir Montalvo MD Iron [Mass/Vol] 54 ug/dL Low 59-158 [facility] Comment on above: Performed By: #### P HO, CDP, RA, PT, SED, BMPX, FREDA, MG, LD, CRP, FEBC, B12FOL, PTT, C4, CCPAB, FERI, IOCAL, CORTI, CK, C3, REJEC #### [facility] [employer] [address] [place] [id number] Turning Machine Operator: Jasbir Montalvo MD Total Fe Binding Cap 224 ug/dL Low 250-450 [facility] Comment on above: Performed By: #### P HO, CDP, RA, PT, SED, BMPX, FREDA, MG, LD, CRP, FEBC, B12FOL, PTT, C4, CCPAB, FERI, IOCAL, CORTI, CK, C3, REJEC #### [facility] [employer] [address] [place] [id number] Turning Machine Operator: Jasbir Montalvo MD Unbound Fe Bind Cap 170 ug/dL Normal 112-347 [facility] Comment on above: Performed By: #### P HO, CDP, RA, PT, SED, BMPX, FREDA, MG, LD, CRP, FEBC, B12FOL, PTT, C4, CCPAB, FERI, IOCAL, CORTI, CK, C3, REJEC #### [facility] [address] [place], [place] [phone] Turning Machine Operator: Jasbir Montalvo MD Iron and TIBCon 11-30-2023 Interpretation and review of laboratory results Abnormal [facility] Iron [Mass/Vol] 54 ug/dL Low 59 - 158 ug/dL [facility] Iron binding capacity [Mass/Vol] 224 ug/dL Low 250 - 450 ug/dL [facility] Iron saturation [Mass fraction] 24 % 20 - 55 % [facility] UIBC 170 ug/dL 112 - 347 ug/dL [facility] Lactate Dehydrogenaseon 11-07 LDH [Catalytic activity/Vol] 243 U/L High 135-225 [facility] Comment on above: Performed By: #### P HO, CDP, RA, PT, SED, BMPX, FREDA, MG, LD, CRP, FEBC, B12FOL, PTT, C4, CCPAB, FERI, IOCAL, CORTI, CK, C3, REJEC #### [facility] [employer] [address] [place], [place] [phone] Turning Machine Operator: Jasbir Montalvo MD LDH [Catalytic activity/Vol] 243 U/L High 135 - 225 U/L [facility] Magnesiumon 11-30-2023 Magnesium [Mass/Vol] 2.7 mg/dL High 1.6-2.6 [facility] Comment on above: Performed By: #### P HO, CDP, RA, PT, SED, BMPX, FREDA, MG, LD, CRP, FEBC, B12FOL, PTT, C4, CCPAB, FERI, IOCAL, CORTI, CK, C3, REJEC ####[facility] [address] [place] [id number] Lab Director: Jasbir Montalvo MD Magnesium [Mass/Vol] 2.7 mg/dL High 1.6 - 2.6 mg/dL [facility] Myoglobinon 11-30-2023 Myoglobin [Mass/Vol] 59 ng/mL Normal 28-72 [facility] Comment on above: Performed By: #### P HO, CDP, RA, PT, SED, BMPX, FREDA, MG, LD, CRP, FEBC, B12FOL, PTT, C4, CCPAB, FERI, IOCAL, CORTI, CK, C3, REJEC ####[facility] [place] [address] lab Director: Jasbir Montalvo MD Myoglobin, Bloodon Myoglobin [Mass/Vol] 59 ng/mL 28 - 72 ng/mL [facility] No Panel Informationon 11-[address] [facility] [address] thoracic spine: M ild dextroscoliotic curvature. No acute fracture or traumatic malalignment. Chronic anterior loss in height of T10 of 15%. CT lumbar spine: No acute fracture or traumatic malalignment. Mild levo scoliotic curvature. Degenerative and degenerative disc changes L3 through S1. MHPN RIS CONSOLIDATED EXAMINATION: CT OF THE THORACIC SPINE WITHOUT CONTRAST; CT OF THE LUMBAR SPINE WITHOUT CONTRAST 11/30/2023 TECHNIQUE: CT of the thoracic spine was performed without the administration of intravenous contrast. Multiplanar reformatted images are provided for review. Automated exposure control, iterative reconstruction, and/or weight based adjustment of the mA/kV was utilized to reduce the radiation dose to as low as reasonably achievable.; CT of the lumbar spine was performed without the administration of intravenous contrast. Multiplanar reformatted images are provided for review. Adjustment of mA and/or kV according to patient size was utilized. Automated exposure control, iterative reconstruction, and/or weight based adjustment of the mA/kV was utilized to reduce the radiation dose to as low as reasonably achievable. COMPARISON: Chest 18 January 2015; chest 28 November 2023 HISTORY: ORDERING SYSTEM PROVIDED HISTORY: F/u weakness TECHNOLOGIST PROVIDED HISTORY: F/u weakness; ORDERING SYSTEM PROVIDED HISTORY: weakness TECHNOLOGIST PROVIDED HISTORY: weakness FINDINGS: CT thoracic spine: BONES/ALIGNMENT: A mild dextroscoliotic curvature in the midthoracic spine is noted. No acute fracture or traumatic malalignment is noted. Mild anterior loss in height in of T 10 of approximately 15% is noted, nonacute. Other vertebral bodies are well maintained in height. DEGENERATIVE CHANGES: Diffuse mild degenerative and degenerative disc changes are noted. No significant neural foraminal narrowing. No gross bony canal stenosis. SOFT TISSUES: No paraspinal mass is seen. Incidental hilar granulomatous changes are noted. CT lumbar spine: BONES/ALIGNMENT: Mild levo scoliotic curvature. No subluxation. The vertebral body heights are maintained. No osseous destructive lesion is seen. DEGENERATIVE CHANGES: Mild degenerative changes are present L3-L4 and L5-S1. Mild degenerative disc changes L4-L5 L5-S1. Disc protrusion L4-L5. SOFT TISSUES/RETROPERITONEUM: No paraspinal mass is seen. [facility] Shanthi Doyle MD - 11/30/2023 EXAMINATION: CT OF THE THORACIC SPINE WITHOUT CONTRAST; CT OF THE LUMBAR SPINE WITHOUT CONTRAST 11/30/2023 TECHNIQUE: CT of the thoracic spine was performed without the administration of intravenous contrast. Multiplanar reformatted images are provided for review. Automated exposure control, iterative reconstruction, and/or weight based adjustment of the mA/kV was utilized to reduce the radiation dose to as low as reasonably achievable.; CT of the lumbar spine was performed without the administration of intravenous contrast. Multiplanar reformatted images are provided for review. Adjustment of mA and/or kV according to patient size was utilized. Automated exposure control, iterative reconstruction, and/or weight based adjustment of the mA/kV was utilized to reduce the radiation dose to as low as reasonably achievable. COMPARISON: Chest 18 January 2015; chest 28 November 2023 HISTORY: ORDERING SYSTEM PROVIDED HISTORY: F/u weakness TECHNOLOGIST PROVIDED HISTORY: F/u weakness; ORDERING SYSTEM PROVIDED HISTORY: weakness TECHNOLOGIST PROVIDED HISTORY: weakness FINDINGS: CT thoracic spine: BONES/ALIGNMENT: A mild dextroscoliotic curvature in the midthoracic spine is noted. No acute fracture or traumatic malalignment is noted. Mild anterior loss in height in of T 10 of approximately 15% is noted, nonacute. Other vertebral bodies are well maintained in height. DEGENERATIVE CHANGES: Diffuse mild degenerative and degenerative disc changes are noted. No significant neural foraminal narrowing. No gross bony canal stenosis. SOFT TISSUES: No paraspinal mass is seen. Incidental hilar granulomatous changes are noted. CT lumbar spine: BONES/ALIGNMENT: Mild levo scoliotic curvature. No subluxation. The vertebral body heights are maintained. No osseous destructive lesion is seen. DEGENERATIVE CHANGES: Mild degenerative changes are present L3-L4 and L5-S1. Mild degenerative disc changes L4-L5 L5-S1. Disc protrusion L4-L5. SOFT TISSUES/RETROPERITONEUM: No paraspinal mass is seen. IMPRESSION: CT thoracic spine: Mild dextroscoliotic curvature. No acute fracture or traumatic malalignment. Chronic anterior loss in height of T10 of 15%. CT lumbar spine: No acute fracture or traumatic malalignment. Mild levo scoliotic curvature. Degenerative and degenerative disc changes L3 through S1. [facility] zulily DOZ Radiology Study observation (narrative) [facility] Interpretation and review of laboratory results Abnormal [facility] Interpretation and review of laboratory results Abnormal [facility] No Panel InformationOrdered By: Shanthi Mcdonough on 11-30-2023 [employer] DO[employer] Work Phone: POC Glucose Fingerstickon Glucose [Mass/Vol] 231 mg/dL High 75 - 110 mg/dL [facility] Interpretation and review of laboratory results Abnormal [facility] Glucose [Mass/Vol] 98 mg/dL 75 - 110 mg/dL [facility] Glucose [Mass/Vol] 154 mg/dL High 75 - 110 mg/dL [facility] Interpretation and review of laboratory results Abnormal [facility] Glucose [Mass/Vol] 137 mg/dL High 75 - 110 mg/dL [facility] Interpretation and review of laboratory results Abnormal [facility] Glucose [Mass/Vol] 55 mg/dL Low 75 - 110 mg/dL [facility] Interpretation and review of laboratory results Abnormal [facility] Glucose [Mass/Vol] 48 mg/dL Low 75 - 110 mg/dL [facility] Comment on above: Critical Noted Interpretation and review of laboratory results Abnormal [facility] PTon 11-30-2023 INR Coag (PPP) [Relative time] 3.0 {INR} Normal [facility] Comment on above: Result Comment: Therapeutic Range: Moderate Anticoagulant Intensity: INR = 2.0-3.0 High Anticoagulant Intensity: INR = 2.5-3.5 Performed By: #### P HO, CDP, RA, PT, SED, BMPX, FREDA, MG, LD, CRP, FEBC, B12FOL, PTT, C4, CCPAB, FERI, IOCAL, CORTI, CK, C3, REJEC ####[facility] [address] [place] [address] [id number] Lab Director: Jasbir Montalvo MD PT Coag (PPP) [Time] 30.0 s High 11.7-14.9 [facility] Comment on above: Performed By: #### P HO, CDP, RA, PT, SED, BMPX, FREDA, MG, LD, CRP, FEBC, B12FOL, PTT, C4, CCPAB, FERI, IOCAL, CORTI, CK, C3, REJEC ####[facility] [address] [place] [address] [id number] lab Director: Jasbir Montalvo MD Phosphoruson 11-30-2023 Phosphate [Mass/Vol] 3.5 mg/dL 2.5 - 4.5 mg/dL [facility] Phosphorus, Inorg.on 024 Phosphorus, Inorg. 3.5 mg/dL Normal 2.5-4.5 [facility] Comment on above: Performed By: #### P HO, CDP, RA, PT, SED, BMPX, FREDA, MG, LD, CRP, FEBC, B12FOL, PTT, C4, CCPAB, FERI, IOCAL, CORTI, CK, C3, REJEC ####[facility] [address] [place] [address] [id number] lab Director: Jasbir Montalvo MD Protime-INRon 11-30-2023 INR Coag (PPP) [Relative time] 3.0 {INR} [facility] Comment on above: Therapeutic Range: Moderate Anticoagulant Intensity: INR = 2.0-3.0 High Anticoagulant Intensity: INR = 2.5-3.5 PT Coag (PPP) [Time] 30.0 s High [facility] RA Screenon 11-30-2023 RA Screen <10 Normal <14 [facility] Comment on above: Performed By: #### P HO, CDP, RA, PT, SED, BMPX, FREDA, MG, LD, CRP, FEBC, B12FOL, PTT, C4, CCPAB, FERI, IOCAL, CORTI, CK, C3, REJEC ####[employer] [place], [place] [id number] Lab Director: Jasbir Montalvo MD RHEUMATOID FACTORon 11-30-19 24 Rheumatoid factor Nephelometry Qn (S) <10 NINF [facility] Sedimentation Rateon 024 Sedimentation Rate 18 mm/Hr Normal 0-20 [facility] Comment on above: Performed By: #### P HO, CDP, RA, PT, SED, BMPX, FREDA, MG, LD, CRP, FEBC, B12FOL, PTT, C4, CCPAB, FERI, IOCAL, CORTI, CK, C3, REJEC ####[facility] VenturesQvwfolmymoxj[address] [place] [address] [id number] Lab Director: Jasbir Montalvo MD ESR Photometric method (Bld) [Velocity] 18 [facility] Specimen Rejectionon 024 Reason for rejection Unable to perform testing: Specimen quantity not sufficient. Normal [facility] Comment on above: Performed By: #### P HO, CDP, RA, PT, SED, BMPX, FREDA, MG, LD, CRP, FEBC, B12FOL, PTT, C4, CCPAB, FERI, IOCAL, CORTI, CK, C3, REJEC #### [facility] [employer] [facility] [place] [address] Turning Machine Operator: Jasbir Montalvo MD Source of sample .BLOOD Normal [facility] Comment on above: Performed By: #### P HO, CDP, RA, PT, SED, BMPX, FREDA, MG, LD, CRP, FEBC, B12FOL, PTT, C4, CCPAB, FERI, IOCAL, CORTI, CK, C3, REJEC #### [address] [phone] Turning Machine Operator: Jasbir Montalvo MD Test ordered AALDO Normal [facility] Comment on above: Performed By: #### P HO, CDP, RA, PT, SED, BMPX, FREDA, MG, LD, CRP, FEBC, B12FOL, PTT, C4, CCPAB, FERI, IOCAL, CORTI, CK, C3, REJEC #### [address] [phone] Turning Machine Operator: Jasbir Montalvo MD T. PALLIDUM ABon 11-30-2023 T. pallidum Ab IA Ql (S) Non-Reactive NONREACTIVE [facility] Comment on above: T. pallidum antibodies are not detected. There is no serological evidence of infection with T. pallidum (early primary syphilis cannot be excluded). Retest in 2-4 weeks if syphilis is clinically suspect. [facility] T.pallidum Ab Screenon 11-30 T.pallidum Ab Screen Non-Reactive Normal [facility] Comment on above: Result Comment: T. pallidum antibodies are not detected. There is no serological evidence of infection with T. pallidum (early primary syphilis cannot be excluded). Retest in 2-4 weeks if syphilis is clinically suspect. Performed By: #### P HO, CDP, RA, PT, SED, BMPX, FREDA, MG, LD, CRP, FEBC, B12FOL, PTT, C4, CCPAB, FERI, IOCAL, CORTI, CK, C3, REJEC #### [address] [phone] Turning Machine Operator: Jasbir Montalvo MD TSH w/reflex to FT4on 2023 Thyroid Stim. Horm. 0.36 uIU/mL Normal 0.30-5.00 [facility] Comment on above: Performed By: #### P HO, CDP, RA, PT, SED, BMPX, FREDA, MG, LD, CRP, FEBC, B12FOL, PTT, C4, CCPAB, FERI, IOCAL, CORTI, CK, C3, REJEC #### [address] [id number] Turning Machine Operator: Jasbir Montalvo MD TSH with Reflexon 11-30-2023 TSH Qn 0.36 m[IU]/L [facility] Venous Blood Gaseson 024 Body Temp. 37.0 Normal [facility] Comment on above: Performed By: #### P HO, CDP, RA, PT, SED, BMPX, FREDA, MG, LD, CRP, FEBC, B12FOL, PTT, C4, CCPAB, FERI, IOCAL, CORTI, CK, C3, REJEC #### [address] [id number] Turning Machine Operator: Jasbir Montalvo MD Carboxy Hgb 1.6 % Normal 0-5 [facility] Comment on above: Result Comment: Reference Range: Non-Smokers 0-2% Average Smoker 2-4% Heavy Smoker <10% Performed By: #### P HO, CDP, RA, PT, SED, BMPX, FREDA, MG, LD, CRP, FEBC, B12FOL, PTT, C4, CCPAB, FERI, IOCAL, CORTI, CK, C3, REJEC #### [address] [phone] Turning Machine Operator: Jasbir Montalvo MD FIO2 INFORMATION NOT PROVIDED Normal [facility] Comment on above: Performed By: #### P HO, CDP, RA, PT, SED, BMPX, FREDA, MG, LD, CRP, FEBC, B12FOL, PTT, C4, CCPAB, FERI, IOCAL, CORTI, CK, C3, REJEC #### [address], [place] [phone] Turning Machine Operator: Jasbir Montalvo MD HCO3 (Bld) [Moles/Vol] 26.1 mmol/L Normal 24-30 [facility] Comment on above: Performed By: #### P HO, CDP, RA, PT, SED, BMPX, FREDA, MG, LD, CRP, FEBC, B12FOL, PTT, C4, CCPAB, FERI, IOCAL, CORTI, CK, C3, REJEC #### [address] [phone] Turning Machine Operator: Jasbir Montalvo MD Negative Base Excess 1.1 mmol/L Normal 0.0-2.0 [facility] Comment on above: Performed By: #### P HO, CDP, RA, PT, SED, BMPX, FREDA, MG, LD, CRP, FEBC, B12FOL, PTT, C4, CCPAB, FERI, IOCAL, CORTI, CK, C3, REJEC #### [address] [phone] Turning Machine Operator: Jasbir Montalvo MD Oxygen saturation in Blood 84.3 % Normal 60.0-85.0 [facility] Comment on above: Performed By: #### P HO, CDP, RA, PT, SED, BMPX, FREDA, MG, LD, CRP, FEBC, B12FOL, PTT, C4, CCPAB, FERI, IOCAL, CORTI, CK, C3, REJEC #### [address] [phone] Turning Machine Operator: Jasbir Montalvo MD pCO2 55.2 mm Hg High 39-55 [facility] [facility] Comment on above: Performed By: #### P HO, CDP, RA, PT, SED, BMPX, FREDA, MG, LD, CRP, FEBC, B12FOL, PTT, C4, CCPAB, FERI, IOCAL, CORTI, CK, C3, REJEC #### [address] [id number] Turning Machine Operator: Jasbir Montalvo MD pH (Bld) 7.297 [pH] Low 7.320-7.420 [facility] Comment on above: Performed By: #### P HO, CDP, RA, PT, SED, BMPX, FREDA, MG, LD, CRP, FEBC, B12FOL, PTT, C4, CCPAB, FERI, IOCAL, CORTI, CK, C3, REJEC #### [facility] [address] [place] [address] [id number] Turning Machine Operator: Jasbir Montalvo MD pO2 55.2 mm Hg High 30-50 [facility] Comment on above: Performed By: #### P HO, CDP, RA, PT, SED, BMPX, FREDA, MG, LD, CRP, FEBC, B12FOL, PTT, C4, CCPAB, FERI, IOCAL, CORTI, CK, C3, REJEC #### [facility] [address] [place] [address] [id number] Turning Machine Operator: Jasbir Montalvo MD Vitamin B12 & Folateon 11-30 Cobalamin (Vitamin B12) [Mass/Vol] 397 pg/mL 232 - 1245 pg/mL [facility] Folate [Mass/Vol] 6.2 ng/mL 4.8 - PINF ng/mL [facility] CT HEAD WO CONTRASTon 2023 CT HEAD WO CONTRAST EXAMINATION: CT OF THE HEAD WITHOUT CONTRAST; TWO XRAY VIEWS OF THE CHEST 11/28/2023 2:39 pm; 11/28/2023 2:40 pm TECHNIQUE: CT of the head was performed without the administration of intravenous contrast. Automated exposure control, iterative reconstruction, and/or weight based adjustment of the mA/kV was utilized to reduce the radiation dose to as low as reasonably achievable. COMPARISON: January 18, 2015 HISTORY: ORDERING SYSTEM PROVIDED HISTORY: AMS TECHNOLOGIST PROVIDED HISTORY: AMS Decision Support Exception - unselect if not a suspected or confirmed emergency medical condition->Emergency Medical Condition (MA); ORDERING SYSTEM PROVIDED HISTORY: Pain TECHNOLOGIST PROVIDED HISTORY: Pain FINDINGS: Head CT: BRAIN/VENTRICLES: There is no acute intracranial hemorrhage, mass effect or midline shift. No abnormal extra-axial fluid collection. The ugalde-white differentiation is maintained without evidence of an acute infarct. There is no evidence of hydrocephalus. A metallic probe can be seen with the tip in the left thalamus advancing from the left frontal area. No obvious complications. ORBITS: The visualized portion of the orbits demonstrate no acute abnormality. SINUSES: There is mild thickening in the ethmoid sinuses. The other sinuses are well aerated. Mastoids well aerated. SOFT TISSUES/SKULL: No acute abnormality of the visualized skull or soft tissues. Chest x-ray: The lungs are without acute focal process. There is no effusion or pneumothorax. The cardiomediastinal silhouette is without acute process. The osseous structures are without acute process. IMPRESSION: No acute chest process. No acute intracranial abnormality. Stable metallic probe inserted via the left frontal approach with the tip in the left thalamic area. No obvious complications. Interpreted by: Nathaly Oh MD Signed by: Nathaly Oh MD 11/29/23 Final result Normal [facility] Comp Metabolic Pr/rfx MGon 0 11-29-2023 AST [Catalytic activity/Vol] 18 U/L Normal <40 [facility] Comment on above: Performed By: #### P HO, CDP, RA, PT, SED, BMPX, FREDA, MG, LD, CRP, FEBC, B12FOL, PTT, C4, CCPAB, FERI, IOCAL, CORTI, CK, C3, REJEC #### [facility] [address] [place] [id number] Turning Machine Operator: Jasbir Montalvo MD Albumin [Mass/Vol] 3.4 g/dL Low 3.5-5.2 [facility] Comment on above: Performed By: #### P HO, CDP, RA, PT, SED, BMPX, FREDA, MG, LD, CRP, FEBC, B12FOL, PTT, C4, CCPAB, FERI, IOCAL, CORTI, CK, C3, REJEC #### [facility] [address] [place] [id number] Turning Machine Operator: Jasbir Montalvo MD Albumin/Glob Ratio 1.1 Normal 1.0-2.5 [facility] Comment on above: Performed By: #### P HO, CDP, RA, PT, SED, BMPX, FREDA, MG, LD, CRP, FEBC, B12FOL, PTT, C4, CCPAB, FERI, IOCAL, CORTI, CK, C3, REJEC #### [address] [id number] Turning Machine Operator: Jasbir Montalvo MD Alkaline Phos 93 U/L Normal 40-129 [facility] Comment on above: Performed By: #### P HO, CDP, RA, PT, SED, BMPX, FREDA, MG, LD, CRP, FEBC, B12FOL, PTT, C4, CCPAB, FERI, IOCAL, CORTI, CK, C3, REJEC #### [address] [id number] Turning Machine Operator: Jasbir Montalvo MD ALT [Catalytic activity/Vol] 14 U/L Normal 5-41 [facility] Comment on above: Performed By: #### P HO, CDP, RA, PT, SED, BMPX, FREDA, MG, LD, CRP, FEBC, B12FOL, PTT, C4, CCPAB, FERI, IOCAL, CORTI, CK, C3, REJEC #### [address] [id number] Turning Machine Operator: Jasbir Montalvo MD Anion gap [Moles/Vol] 11 mmol/L Normal 9-17 [facility] Comment on above: Performed By: #### P HO, CDP, RA, PT, SED, BMPX, FREDA, MG, LD, CRP, FEBC, B12FOL, PTT, C4, CCPAB, FERI, IOCAL, CORTI, CK, C3, REJEC #### [address] [id number] Turning Machine Operator: Jasbir Montalvo MD Bilirubin [Mass/Vol] 0.3 mg/dL Normal 0.3-1.2 [facility] Comment on above: Performed By: #### P HO, CDP, RA, PT, SED, BMPX, FREDA, MG, LD, CRP, FEBC, B12FOL, PTT, C4, CCPAB, FERI, IOCAL, CORTI, CK, C3, REJEC #### [address] [id number] Turning Machine Operator: Jasbir Montalvo MD Calcium [Mass/Vol] 8.9 mg/dL Normal 8.6-10.4 [facility] Comment on above: Performed By: #### P HO, CDP, RA, PT, SED, BMPX, FREDA, MG, LD, CRP, FEBC, B12FOL, PTT, C4, CCPAB, FERI, IOCAL, CORTI, CK, C3, REJEC #### [address] [id number] Turning Machine Operator: Jasbir Montalvo MD Chloride [Moles/Vol] 109 mmol/L High 98-107 [facility] Comment on above: Performed By: #### P HO, CDP, RA, PT, SED, BMPX, FREDA, MG, LD, CRP, FEBC, B12FOL, PTT, C4, CCPAB, FERI, IOCAL, CORTI, CK, C3, REJEC #### [address] [id number] Turning Machine Operator: Jasbir Montalvo MD CO2 [Moles/Vol] 24 mmol/L Normal 20-31 [facility] Comment on above: Performed By: #### P HO, CDP, RA, PT, SED, BMPX, FREDA, MG, LD, CRP, FEBC, B12FOL, PTT, C4, CCPAB, FERI, IOCAL, CORTI, CK, C3, REJEC #### [address] [id number] Turning Machine Operator: Jasbir Montalvo MD Creatinine [Mass/Vol] 1.6 mg/dL High 0.7-1.2 [facility] Comment on above: Performed By: #### P HO, CDP, RA, PT, SED, BMPX, FREDA, MG, LD, CRP, FEBC, B12FOL, PTT, C4, CCPAB, FERI, IOCAL, CORTI, CK, C3, REJEC #### [facility] [address] [place] [id number] Turning Machine Operator: Jasbir Montalvo MD GFR/1.73 sq M.predicted among non-blacks MDRD (S/P/Bld) [Vol rate/Area] 48 mL/min/{1.73_m2} Low >60 [facility] Comment on above: Result Comment: These results are not intended for use in patients <18 years of age. eGFR results are calculated without a race factor using the 2020 CKD-EPI equation. Careful clinical correlation is recommended, particularly when comparing to results calculated using previous equations. The CKD-EPI equation is less accurate in patients with extremes of muscle mass, extra-renal metabolism of creatine, excessive creatine ingestion, or following therapy that affects renal tubular secretion. Performed By: #### P HO, CDP, RA, PT, SED, BMPX, FREDA, MG, LD, CRP, FEBC, B12FOL, PTT, C4, CCPAB, FERI, IOCAL, CORTI, CK, C3, REJEC #### [facility] [address] [place] [id number] Turning Machine Operator: Jasbir Montalvo MD Glucose [Mass/Vol] 151 mg/dL High 70-99 [facility] Comment on above: Performed By: #### P HO, CDP, RA, PT, SED, BMPX, FREDA, MG, LD, CRP, FEBC, B12FOL, PTT, C4, CCPAB, FERI, IOCAL, CORTI, CK, C3, REJEC #### [facility] [address] [place] [id number] Turning Machine Operator: Jasbir Montalvo MD Potassium [Moles/Vol] 4.1 mmol/L Normal 3.7-5.3 [facility] Comment on above: Performed By: #### P HO, CDP, RA, PT, SED, BMPX, FREDA, MG, LD, CRP, FEBC, B12FOL, PTT, C4, CCPAB, FERI, IOCAL, CORTI, CK, C3, REJEC #### [facility] [address] [place] [id number] Turning Machine Operator: Jasbir Montalvo MD Protein [Mass/Vol] 6.5 g/dL Normal 6.4-8.3 [facility] Comment on above: Performed By: #### P HO, CDP, RA, PT, SED, BMPX, FREDA, MG, LD, CRP, FEBC, B12FOL, PTT, C4, CCPAB, FERI, IOCAL, CORTI, CK, C3, REJEC #### [facility] [address] [place] [id number] Turning Machine Operator: Jasbir Mnotalvo MD Sodium [Moles/Vol] 144 mmol/L Normal 135-144 [facility] Comment on above: Performed By: #### P HO, CDP, RA, PT, SED, BMPX, FREDA, MG, LD, CRP, FEBC, B12FOL, PTT, C4, CCPAB, FERI, IOCAL, CORTI, CK, C3, REJEC #### [facility] [address] [place] [id number] Turning Machine Operator: Jasbir Montalvo MD Urea nitrogen [Mass/Vol] 36 mg/dL High 8-23 [facility] Comment on above: Performed By: #### P HO, CDP, RA, PT, SED, BMPX, FREDA, MG, LD, CRP, FEBC, B12FOL, PTT, C4, CCPAB, FERI, IOCAL, CORTI, CK, C3, REJEC #### [facility] [address] [place] [id number] Turning Machine Operator: Jasbir Montalvo MD Comprehensive Metabolic Pane l w/ Reflex to MGon 11-29-2023 Albumin [Mass/Vol] 3.4 g/dL Low 3.5 - 5.2 g/dL [facility] Albumin/Globulin [Mass ratio] 1.1 {ratio} 1.0 - 2.5 [facility] ALP [Catalytic activity/Vol] 93 U/L 40 - 129 U/L [facility] ALT [Catalytic activity/Vol] 14 U/L 5 - 41 U/L [facility] Anion gap [Moles/Vol] 11 mmol/L 9 - 17 mmol/L [facility] AST [Catalytic activity/Vol] 18 U/L NINF - 40 U/L [facility] Bilirubin [Mass/Vol] 0.3 mg/dL 0.3 - 1.2 mg/dL [facility] Calcium [Mass/Vol] 8.9 mg/dL 8.6 - 10. 4 mg/dL [facility] Chloride [Moles/Vol] 109 mmol/L High 98 - 107 mmol/L [facility] CO2 [Moles/Vol] 24 mmol/L 20 - 31 mmol/L [facility] Creatinine [Mass/Vol] 1.6 mg/dL High 0.7 - 1.2 mg/dL [facility] GFR/1.73 sq M.predicted MDRD (S/P/Bld) [Vol rate/Area] 48 mL/min/{1.73_m2} Low - PINF [facility] Comment on above: These results are not intended for use in patients <18 years of age. eGFR results are calculated without a race factor using the 2020 CKD-EPI equation. Careful clinical correlation is recommended, particularly when comparing to results calculated using previous equations. The CKD-EPI equation is less accurate in patients with extremes of muscle mass, extra-renal metabolism of creatine, excessive creatine ingestion, or following therapy that affects renal tubular secretion. Glucose [Mass/Vol] 151 mg/dL High 70 - 99 mg/dL [facility] Interpretation and review of laboratory results Abnormal [facility] Potassium [Moles/Vol] 4.1 mmol/L 3.7 - 5.3 mmol/L [facility] Protein [Mass/Vol] 6.5 g/dL 6.4 - 8.3 g/dL [facility] Sodium [Moles/Vol] 144 mmol/L 135 - 144 mmol/L [facility] Urea nitrogen [Mass/Vol] 36 mg/dL High 8 - 23 mg/dL [facility] Glucose, Whole Bloodon 11-29 Glucose [Mass/Vol] 169 mg/dL High 74-100 [facility] Glucose [Mass/Vol] 236 mg/dL High 74-100 [facility] Glucose [Mass/Vol] 116 mg/dL High 74-100 [facility] Glucose [Mass/Vol] 123 mg/dL High 74-100 [facility] Glucose [Mass/Vol] 53 mg/dL Low 74-100 [facility] Glucose [Mass/Vol] 62 mg/dL Low 74-100 [facility] Glucose,Whole Bloodon 2023 Glucose [Mass/Vol] 161 mg/dL High 75-110 [facility] POC Glucose Fingerstickon Glucose [Mass/Vol] 161 mg/dL High 75 - 110 mg/dL [facility] Interpretation and review of laboratory results Abnormal [facility] XR CHEST (2 VW)on 11-29-2023 XR CHEST (2 VW) EXAMINATION: CT OF THE HEAD WITHOUT CONTRAST; TWO XRAY VIEWS OF THE CHEST 11/28/2023 2:39 pm; 11/28/2023 2:40 pm TECHNIQUE: CT of the head was performed without the administration of intravenous contrast. Automated exposure control, iterative reconstruction, and/or weight based adjustment of the mA/kV was utilized to reduce the radiation dose to as low as reasonably achievable. COMPARISON: January 18, 2015 HISTORY: ORDERING SYSTEM PROVIDED HISTORY: AMS TECHNOLOGIST PROVIDED HISTORY: AMS Decision Support Exception - unselect if not a suspected or confirmed emergency medical condition->Emergency Medical Condition (MA); ORDERING SYSTEM PROVIDED HISTORY: Pain TECHNOLOGIST PROVIDED HISTORY: Pain FINDINGS: Head CT: BRAIN/VENTRICLES: There is no acute intracranial hemorrhage, mass effect or midline shift. No abnormal extra-axial fluid collection. The ugalde-white differentiation is maintained without evidence of an acute infarct. There is no evidence of hydrocephalus. A metallic probe can be seen with the tip in the left thalamus advancing from the left frontal area. No obvious complications. ORBITS: The visualized portion of the orbits demonstrate no acute abnormality. SINUSES: There is mild thickening in the ethmoid sinuses. The other sinuses are well aerated. Mastoids well aerated. SOFT TISSUES/SKULL: No acute abnormality of the visualized skull or soft tissues. Chest x-ray: The lungs are without acute focal process. There is no effusion or pneumothorax. The cardiomediastinal silhouette is without acute process. The osseous structures are without acute process. IMPRESSION: No acute chest process. No acute intracranial abnormality. Stable metallic probe inserted via the left frontal approach with the tip in the left thalamic area. No obvious complications. Interpreted by: Nathaly Oh MD Signed by: Nathaly Oh MD 11/29/23 Final result Normal [facility] RADHA Screen w/reflexon 2023 RADHA Screen Negative Normal NEG [facility] Comment on above: Performed By: #### A XUAN, GLYHGB, CRP, SED, PE, CDP, TSHX, HIVCMB, CK, ANAX, CP, B12FOL, VD25, AHCV #### [address] [phone] Turning Machine Operator: Jasbir Montalvo MD #### ASHVIN DUARTERP #### [facility] [address] [place] [address] Turning Machine Operator: Samuel Olivia MD Anti-dsDNA 6.0 IU/mL Normal <10.0 [facility] Comment on above: Result Comment: Reference Range: <10.0 Negative 10.0-15.0 Equivocal >15.0 Positive Performed By: #### A XUAN, GLYHGB, CRP, SED, PE, CDP, TSHX, HIVCMB, CK, ANAX, CP, B12FOL, VD25, AHCV #### [facility] [address] [place] [address] [phone] Turning Machine Operator: Jasbir Montalvo MD ###PACHECO HAN #### [facility] [address] [place] [address] Turning Machine Operator: Samuel Olivia MD XUAN Screen 0.2 U/mL Normal <0.7 [facility] Comment on above: Result Comment: Reference Range: <0.7 Negative 0.7-1.0 Equivocal >1.0 Positive XUAN Screen includes U1RNP,RNP70,Sm,Ro(SS-A),La(SS-B),CENP,Scl-70,[place]-1 Performed By: #### A XUAN, GLYHGB, CRP, SED, PE, CDP, TSHX, HIVCMB, CK, ANAX, CP, B12FOL, VD25, AHCV #### [facility] [id number] Turning Machine Operator: Jasbir Montalvo MD #### PACHECO DUARTE #### [facility] [address] [place] [address] Turning Machine Operator: Samuel Olivia MD Ammoniaon 11-28-2023 Ammonia (P) [Mass/Vol] ug/dL Low 16-60 [facility] Comment on above: Performed By: #### A MON ####[facility] [place] [address] Lab Director: Marlon Mack MD Anti-Extract Nuc Agon 2023 Anti-RNP70 0.4 U/mL Normal <7.0 [facility] Comment on above: Result Comment: Reference Range: <7.0 Negative 7.0-10.0 Equivocal >10.0 Positive Performed By: #### A XUAN, GLYHGB, CRP, SED, PE, CDP, TSHX, HIVCMB, CK, ANAX, CP, B12FOL, VD25, AHCV #### [facility] [address] [place] [address] [id number] Turning Machine Operator: Jasbir Montalvo MD #### PACHECO DUARTE #### [facility] [address] [place] [address] Turning Machine Operator: Samuel Olivia MD Anti-Scleroderma <0.6 Normal <7.0 [facility] Comment on above: Result Comment: Reference Range: <7.0 Negative 7.0-10.0 Equivocal >10.0 Positive Performed By: #### A XUAN, GLYHGB, CRP, SED, PE, CDP, TSHX, HIVCMB, CK, ANAX, CP, B12FOL, VD25, AHCV #### [facility] [address] [place] [id number] Turning Machine Operator: Jasbir Montalvo MD #### PACHECO DUARTE #### [facility] [address] [place] [address] [phone] Turning Machine Operator: Samuel Olivia MD Anti-Sm 2.0 U/mL Normal <7.0 [facility] Comment on above: Result Comment: Reference Range: <7.0 Negative 7.0-10.0 Equivocal >10.0 Positive Performed By: #### A XUAN, GLYHGB, CRP, SED, PE, CDP, TSHX, HIVCMB, CK, ANAX, CP, B12FOL, VD25, AHCV #### [place] [address] Turning Machine Operator: Jasbir Montalvo MD #### PACHECO DUARTE #### [facility] [address] [place] [address] [phone] Turning Machine Operator: Samuel Olivia MD SSA 0.5 U/mL Normal <7.0 [facility] Comment on above: Result Comment: Reference Range: <7.0 Negative 7.0-10.0 Equivocal >10.0 Positive Performed By: #### A XUAN, GLYHGB, CRP, SED, PE, CDP, TSHX, HIVCMB, CK, ANAX, CP, B12FOL, VD25, AHCV #### [facility] [address] [place] [address] Turning Machine Operator: Jasbir Montalvo MD #### PACHECO DUARTE #### [facility] [address] [place] [address] [phone] Turning Machine Operator: Samuel Olivia MD SSB <0.3 Normal <7.0 [facility] Comment on above: Result Comment: Reference Range: <7.0 Negative 7.0-10.0 Equivocal >10.0 Positive Performed By: #### A XUAN, GLYHGB, CRP, SED, PE, CDP, TSHX, HIVCMB, CK, ANAX, CP, B12FOL, VD25, AHCV #### [facility] [address] [place], [place] [phone] Turning Machine Operator: Jasbir Montalvo MD #### GERALD, ALYARP #### [facility] [address] [place] [address] Turning Machine Operator: Samuel Olivia MD Basic Metabolic Profon 11-28 Anion gap [Moles/Vol] 9 mmol/L Normal 9-17 [facility] Comment on above: Performed By: #### B MP, MG, CDP, TROPI #### [address] [place] [address] Turning Machine Operator: Marlon Mack MD BUN/CRE Ratio 16 Normal 9-20 [facility] Comment on above: Performed By: #### B MP, MG, CDP, TROPI #### [address] [place] [address] Turning Machine Operator: Marlon Mack MD Calcium [Mass/Vol] 9.1 mg/dL Normal 8.6-10.4 [facility] Comment on above: Performed By: #### B MP, MG, CDP, TROPI #### [address] [place] [address] Turning Machine Operator: Marlon Mack MD Chloride [Moles/Vol] 107 mmol/L Normal 98-107 [facility] Comment on above: Performed By: #### B MP, MG, CDP, TROPI #### [address] [place] [address] Turning Machine Operator: Marlon Mack MD CO2 [Moles/Vol] 27 mmol/L Normal 20-31 [facility] Comment on above: Performed By: #### B MP, MG, CDP, TROPI #### [facility] [address] [place] [address] Turning Machine Operator: Marlon Mack MD Creatinine [Mass/Vol] 1.8 mg/dL High 0.7-1.2 [facility] Comment on above: Performed By: #### B MP, MG, CDP, TROPI #### [facility] [address] [place] [address] [place] [address] Turning Machine Operator: Marlon Mack MD GFR/1.73 sq M.predicted among non-blacks MDRD (S/P/Bld) [Vol rate/Area] 42 mL/min/{1.73_m2} Low >60 [facility] Comment on above: Result Comment: These results are not intended for use in patients <18 years of age. eGFR results are calculated without a race factor using the 2020 CKD-EPI equation. Careful clinical correlation is recommended, particularly when comparing to results calculated using previous equations. The CKD-EPI equation is less accurate in patients with extremes of muscle mass, extra-renal metabolism of creatine, excessive creatine ingestion, or following therapy that affects renal tubular secretion. Performed By: #### B MP, MG, CDP, TROPI #### [address] [place] [address] Turning Machine Operator: Marlon Mack MD Glucose [Mass/Vol] 77 mg/dL Normal 70-99 [facility] Comment on above: Performed By: #### B MP, MG, CDP, TROPI #### [facility] [address] [place] [address] [place] [address] Turning Machine Operator: Marlon Mack MD Potassium [Moles/Vol] 3.9 mmol/L Normal 3.7-5.3 [facility] Comment on above: Performed By: #### B MP, MG, CDP, TROPI #### [address] [place] [address] Turning Machine Operator: Marlon Mack MD Sodium [Moles/Vol] 143 mmol/L Normal 135-144 [facility] Comment on above: Performed By: #### B MP, MG, CDP, TROPI #### [facility] [address] [place] [address] [place], [place] [phone] Turning Machine Operator: Marlon Mack MD Urea nitrogen [Mass/Vol] 29 mg/dL High 8-23 [facility] Comment on above: Performed By: #### B MP, MG, CDP, TROPI #### [address] [place], [place] [phone] Turning Machine Operator: Marlon Mack MD CBC with Diffon 11-28-2023 Abs. Basophil 0.06 k/uL Normal 0.00-0.20 [facility] Comment on above: Performed By: #### B MP, MG, CDP, TROPI #### [address] [place], [place] [phone] Turning Machine Operator: Marlon Mack MD Abs.Imm.Granulocyte 0.04 k/uL Normal 0.00-0.30 [facility] Comment on above: Performed By: #### B MP, MG, CDP, TROPI #### [address] [place], [place] [phone] Turning Machine Operator: Marlon Mack MD Abs.Neutrophil (Seg) 6.33 k/uL Normal 1.50-8.10 [facility] Comment on above: Performed By: #### B MP, MG, CDP, TROPI #### [address] [place], [place] [phone] Turning Machine Operator: Marlon Mack MD Basophils/100 WBC (Bld) 1 % Normal 0-2 [facility] Comment on above: Performed By: #### B MP, MG, CDP, TROPI #### [address] [place], [place] [phone] Turning Machine Operator: Marlon Mack MD Eosinophils (Bld) [#/Vol] 0.25 10*3/uL Normal 0.00-0.44 [facility] Comment on above: Performed By: #### B MP, MG, CDP, TROPI #### [address] [place] [address] Turning Machine Operator: Marlon Mack MD Eosinophils/100 WBC (Bld) 3 % Normal 1-4 [facility] Comment on above: Performed By: #### B MP, MG, CDP, TROPI #### [address] [place], [place] [phone] Turning Machine Operator: Marlon Mack MD Immature granulocytes/100 WBC (Bld) 0 % Normal 0 [facility] Comment on above: Performed By: #### B MP, MG, CDP, TROPI #### [address] [place], [place] [phone] Turning Machine Operator: Marlon Mack MD Lymphocytes (Bld) [#/Vol] 2.23 10*3/uL Normal 1.10-3.70 [facility] Comment on above: Performed By: #### B MP, MG, CDP, TROPI #### [address] [place] [address] Turning Machine Operator: Marlon Mack MD Lymphocytes/100 WBC (Bld) 23 % Low 24-43 [facility] Comment on above: Performed By: #### B MP, MG, CDP, TROPI #### [address] [place], [place] [phone] Turning Machine Operator: Marlon Mack MD Monocytes (Bld) [#/Vol] 0.64 10*3/uL Normal 0.10-1.20 [facility] Comment on above: Performed By: #### B MP, MG, CDP, TROPI #### [address] [place] [address] Turning Machine Operator: Marlon Mack MD Monocytes/100 WBC (Bld) 7 % Normal 3-12 [facility] Comment on above: Performed By: #### B MP, MG, CDP, TROPI #### [facility] [address] [place] [address] Dr[address] [place], [place] [phone] Turning Machine Operator: Marlon Mack MD Neutrophil (Seg) 66 % High 36-65 [facility] Comment on above: Performed By: #### B MP, MG, CDP, TROPI #### [address] [place], [place] [id number] Turning Machine Operator: Marlon Mack MD Erythrocyte distribution width (RBC) [Ratio] 14.0 % Normal 11.8-14.4 [facility] Comment on above: Performed By: #### B MP, MG, CDP, TROPI #### [address] [place], [place] [phone] Turning Machine Operator: Marlon Mack MD Hematocrit (Bld) [Volume fraction] 48.5 % Normal 40.7-50.3 [facility] [facility] Comment on above: Performed By: #### B MP, MG, CDP, TROPI #### [address] [place], [place] [id number] Turning Machine Operator: Marlon Mack MD Hemoglobin (Bld) [Mass/Vol] 15.9 g/dL Normal 13.0-17.0 [facility] Comment on above: Performed By: #### B MP, MG, CDP, TROPI #### [address] [place], [place] [id number] Turning Machine Operator: Marlon Mack MD MCH (RBC) [Entitic mass] 31.2 pg Normal 25.2-33.5 [facility] Comment on above: Performed By: #### B MP, MG, CDP, TROPI #### [address] [place] [address] Turning Machine Operator: Marlon Mack MD MCHC (RBC) [Mass/Vol] 32.8 g/dL Normal 28.4-34.8 [facility] Comment on above: Performed By: #### B MP, MG, CDP, TROPI #### [address] [place], [place] [id number] Turning Machine Operator: Marlon Mack MD MCV (RBC) [Entitic vol] 95.3 fL Normal 82.6-102.9 [facility] Comment on above: Performed By: #### B MP, MG, CDP, TROPI #### [address] [place], [place] [id number] Turning Machine Operator: Marlon Mack MD NRBC Automated 0.0 per 100 WBC Normal 0.0 [facility] Comment on above: Performed By: #### B MP, MG, CDP, TROPI #### [address] [place], [facility]83 Turning Machine Operator: Marlon Mack MD Platelet mean volume (Bld) [Entitic vol] 9.9 fL Normal 8.1-13.5 [facility] Comment on above: Performed By: #### B MP, MG, CDP, TROPI #### [address] [place] [address] Turning Machine Operator: Marlon Mack MD Platelets (Bld) [#/Vol] 233 10*3/uL Normal 138-453 [facility] Comment on above: Performed By: #### B MP, MG, CDP, TROPI #### [address] [place], [place] [id number] Turning Machine Operator: Marlon Mack MD RBC (Bld) [#/Vol] 5.09 10*6/uL Normal 4.21-5.77 [facility] Comment on above: Performed By: #### B MP, MG, CDP, TROPI #### [address] [place] [address] Turning Machine Operator: Marlon Mack MD WBC (Bld) [#/Vol] 9.2 10*3/uL Normal 3.5-11.3 [facility] Comment on above: Performed By: #### B MP, MG, CDP, TROPI #### [facility] [address] [place], [place] [id number] Turning Machine Operator: Marlon Mack MD Glucose, Whole Bloodon 11-28 Glucose [Mass/Vol] 115 mg/dL High 74-100 [facility] Glucose [Mass/Vol] 81 mg/dL Normal 74-100 [facility] Magnesiumon 11-28-2023 Magnesium [Mass/Vol] 2.5 mg/dL Normal 1.6-2.6 [facility] Comment on above: Performed By: #### B MP, MG, CDP, TROPI #### [facility] [address] [place], [place] [id number] Turning Machine Operator: Marlon Mack MD Myasthenia Grav Pnlon 2023 Acetylchol Bind Ab 0.0 nmol/L Normal 0.0-0.4 [facility] Comment on above: Result Comment: (NOT E) Acetylcholine receptor binding antibody result is negative. Sample will not reflex to modulating antibody testing unless blocking result is 27 percent or greater. INTERPRETIVE INFORMATION: Acetylcholine Binding Ab Negative ....... 0.0 - 0.4 nmol/L Positive ....... 0.5 nmol/L or greater Approximately 85-90 percent of patients with myasthenia [...] developed and its performance characteristics determined by [employer]. It has not been cleared or approved by the [place] Food and Drug Administration. This test was performed in a CLIA certified laboratory and is intended for clinical purposes. Performed By: #### A XUAN, GLYHGB, CRP, SED, PE, CDP, TSHX, HIVCMB, CK, ANAX, CP, B12FOL, VD25, AHCV #### [facility] [address] [place] [address] Turning Machine Operator: Jasbir Montalvo MD #### PACHECO DUARTE #### [address] [address] Turning Machine Operator: Samuel Olivia MD Acetylchol Block Ab 0 % Normal 0-26 [facility] Comment on above: Result Comment: (NOT E) INTERPRETIVE INFORMATION: Acetylcholine Blocking Ab Negative ............ 0-26 percent blocking Indeterminate ....... 27-41 percent blocking Positive ............ 42 percent or greater blocking Approximately 85-90 percent of patients with myasthenia [...] developed and its performance characteristics determined by [employer]. It has not been cleared or approved by the [place] Food and Drug Administration. This test was performed in a CLIA certified laboratory and is intended for clinical purposes. Performed By: #### A XUAN, GLYHGB, CRP, SED, PE, CDP, TSHX, HIVCMB, CK, ANAX, CP, B12FOL, VD25, AHCV #### [facility] [address] [place] [address] Turning Machine Operator: Jasbir Montalvo MD #### PACHECO DUARTE #### [address] [address] Turning Machine Operator: Samuel Olivia MD Striated Musc Ab IgG <1:40 Normal <1:40 [facility] Comment on above: Result Comment: (NOT E) Striated Muscle Antibodies, IgG are not detected. No further testing will be performed. INTERPRETIVE DATA: Striated Muscle Antibodies, IgG Screen In the presence of acetylcholine receptor (AChR) antibody, striated muscle antibodies, which bind in a cross-striational pattern to skeletal and heart muscle tissue sections, are associated with late-onset myasthenia gravis (MG). Striated muscle antibodies recognize epitopes on three major muscle proteins, including: titin, ryanodine receptor (RyR) and Kv1.4 (an alpha subunit of voltage-gated potassium channel [VGKC]). Isolated cases of striated muscle antibodies may be seen in patients with certain autoimmune diseases, rheumatic fever, myocardial infarction, and following some cardiotomy procedures. This test was developed and its performance characteristics determined by [employer]. It has not been cleared or approved by the [place] Food and Drug Administration. This test was performed in a CLIA certified laboratory and is intended for clinical purposes. Performed By: #### A XUAN, GLYHGB, CRP, SED, PE, CDP, TSHX, HIVCMB, CK, ANAX, CP, B12FOL, VD25, AHCV #### [facility] [place] [address] Turning Machine Operator: Jasbir Montalvo MD #### PACHECO DUARTE #### [facility] [address] [place] [address] Turning Machine Operator: Samuel Olivia MD Titin Antibody 0.35 IV Normal 0.00-0.45 [facility] Comment on above: Result Comment: (NOT E) INTERPRETIVE INFORMATION: Titin Antibody Negative ........ 0.00 - 0.45 IV Indeterminate ... 0.46 - 0.71 IV Positive ........ 0.72 IV or greater The presence of titin antibody is associated with late onset of myasthenia gravis (MG) and a variable risk for thymoma. Titin antibody may be detected in 20-40 percent of all patients with MG; higher frequency in older population as a whole. This test was developed and its performance characteristics determined by [employer]. It has not been cleared or approved by the US Food and Drug Administration. This test was performed in a CLIA certified laboratory and is intended for clinical purposes. Performed By: [facility] [address] [place] [address] Restaurant Operations Manager: Uriah Prasad MD, PhD CLIA Number: [id number] Performed By: #### A XUAN, GLYHGB, CRP, SED, PE, CDP, TSHX, HIVCMB, CK, ANAX, CP, B12FOL, VD25, AHCV #### [address] [place], [place] [id number] Turning Machine Operator: Jasbir Montalvo MD #### AMYARELI, ALYARP #### [facility] [address], [place] [id number] Turning Machine Operator: Samuel Olivia MD Thyroid Stim. Horm.on 2023 Thyroid Stim. Horm. 0.43 uIU/mL Normal 0.30-5.00 [facility] Comment on above: Performed By: #### T SH #### [facility] [address] [place] [address] [place] [address] Turning Machine Operator: Marlon Mack MD Troponinon 11-28-2023 Troponin, High Sens 25 ng/L High 0-22 [facility] Comment on above: Result Comment: High Sensitivity Troponin values cannot be compared with other Troponin methodologies. Performed By: #### T ROPI #### [facility] [address] [place] [address] [place] [address] Turning Machine Operator: Marlon Mack MD Troponin, High Sens 24 ng/L High 022 [facility] Comment on above: Result Comment: High Sensitivity Troponin values cannot be compared with other Troponin methodologies. Performed By: #### B MP, MG, CDP, TROPI #### [address] [place] [address] Turning Machine Operator: Marlon Mack MD Lyme Dis Rflex Pnlon 024 B burgdorferi Abs, Total 0.37 IV Normal <=0.90 [facility] Comment on above: Result Comment: (NOT E) When Borrelia burgdorferi VlsE1/pepC10 assay is negative further testing is not recommended and will not be performed. REFERENCE INTERVAL: B. burgdorferi VlsE1/pepC10 Abs, YOSEPH 0.90 IV or less..........Negative: VlsE1 and pepC10 antibodies to B. burgdorferi not detected. 0.91 - 1.09 IV...........Equivocal: Repeat testing in 10-14 days may be helpful. 1.10 IV or greater.......Positive: VlsE1 and pepC10 antibodies to B. burgdorferi detected. Performed By: [facility] [address] [place] [address] Restaurant Operations Manager: Uriah Prasad MD, PhD CLIA Number: [id number] Performed By: #### A XUAN, GLYHGB, CRP, SED, PE, CDP, TSHX, HIVCMB, CK, ANAX, CP, B12FOL, VD25, AHCV #### [facility] [address] [place] [id number] Turning Machine Operator: Jasbir Montalvo MD #### PACHECO DUARTE #### [facility] [address] [place] [address] Turning Machine Operator: Samuel Olivia MD Prot. Electroph, Blon 2023 Pathologist Review: Reviewed by patholog ist: Shirley Fernando M.D. Normal [facility] Comment on above: Performed By: #### A XUAN, GLYHGB, CRP, SED, PE, CDP, TSHX, HIVCMB, CK, ANAX, CP, B12FOL, VD25, AHCV #### [facility] [address] [place] [address] Turning Machine Operator: Jasbir Montalvo MD #### PACHECO DUARTE #### [facility] [address] [place] [phone] Turning Machine Operator: Samuel Olivia MD Prot. Elect-Interp NORMAL ELECTROPHORET IC PATTERN Normal [facility] Comment on above: Performed By: #### A XUAN, GLYHGB, CRP, SED, PE, CDP, TSHX, HIVCMB, CK, ANAX, CP, B12FOL, VD25, AHCV #### [address] [address] Turning Machine Operator: Jasbir Montalvo MD #### PACHECO DUARTE #### [facility] [address], [place] [id number] Turning Machine Operator: Samuel Olivia MD B12/Folate Panelon Folic Acid 7.4 ng/mL Normal 4.8-24.2 [facility] Comment on above: Performed By: #### A XUAN, GLYHGB, CRP, SED, PE, CDP, TSHX, HIVCMB, CK, ANAX, CP, B12FOL, VD25, AHCV #### [address] [address] Turning Machine Operator: Jasbir Montalvo MD #### PACHECO DUARTE #### [facility] [address] [place] [address] Turning Machine Operator: Samuel Olivia MD Prot. Electroph, Blon 2023 Albumin [Mass/Vol] 4.2 g/dL Normal 3.2-5.2 [facility] Comment on above: Performed By: #### A XUAN, GLYHGB, CRP, SED, PE, CDP, TSHX, HIVCMB, CK, ANAX, CP, B12FOL, VD25, AHCV #### [address] [address] Turning Machine Operator: Jasbir Montalvo MD #### PACHECO DUARTE #### [facility] [address], [place] [id number] Turning Machine Operator: Samuel Olivia MD Albumin, % 59 % Normal 45-65 [facility] Comment on above: Performed By: #### A XUAN, GLYHGB, CRP, SED, PE, CDP, TSHX, HIVCMB, CK, ANAX, CP, B12FOL, VD25, AHCV #### [address] [address] Turning Machine Operator: Jasbir Montalvo MD #### ASHVIN DUARTERP #### [facility] [address] [place] [address] Turning Machine Operator: Samuel Olivia MD Hfjcl-6-tflbdlqmz 0.2 g/dL Normal 0.1-0.4 [facility] Comment on above: Performed By: #### A XUAN, GLYHGB, CRP, SED, PE, CDP, TSHX, HIVCMB, CK, ANAX, CP, B12FOL, VD25, AHCV #### [address] [address] Turning Machine Operator: Jasbir Montalvo MD #### PACHECO DUARTE #### [address] [address] Turning Machine Operator: Samuel Olivia MD [id number]-7-[id number],% 3 % Normal 3-6 [facility] Comment on above: Performed By: #### A XUAN, GLYHGB, CRP, SED, PE, CDP, TSHX, HIVCMB, CK, ANAX, CP, B12FOL, VD25, AHCV #### [address] [address] Turning Machine Operator: Jasbir Montalvo MD #### ASHVIN DUARTERP #### [facility] [address] [place] [address] Turning Machine Operator: Samuel Olivia MD Fyxbs-3-dyasrhszy 0.9 g/dL Normal 0.5-0.9 [facility] Comment on above: Performed By: #### A XUAN, GLYHGB, CRP, SED, PE, CDP, TSHX, HIVCMB, CK, ANAX, CP, B12FOL, VD25, AHCV #### [address] [address] Turning Machine Operator: Jasbir Montalvo MD #### PACHECO UDARTE #### [facility] [address] [place] [phone] Turning Machine Operator: Samuel Olivia MD Mamnn-0-cxtnvdmpj,% 13 % Normal 6-13 [facility] Comment on above: Performed By: #### A XUAN, GLYHGB, CRP, SED, PE, CDP, TSHX, HIVCMB, CK, ANAX, CP, B12FOL, VD25, AHCV #### [address] [address] Turning Machine Operator: Jasbir Montalvo MD #### PACHECO DUARTE #### [address] [address] Turning Machine Operator: Samuel Olivia MD Beta-globulins 0.8 g/dL Normal 0.5-1.1 [facility] Comment on above: Performed By: #### A XUAN, GLYHGB, CRP, SED, PE, CDP, TSHX, HIVCMB, CK, ANAX, CP, B12FOL, VD25, AHCV #### [address] [address] Turning Machine Operator: Jasbir Montalvo MD #### PACHECO DUARTE #### [facility] [address] [place] [address] Turning Machine Operator: Samuel Olivia MD Beta-globulins,% 11 % Normal 11-19 [facility] Comment on above: Performed By: #### A XUAN, GLYHGB, CRP, SED, PE, CDP, TSHX, HIVCMB, CK, ANAX, CP, B12FOL, VD25, AHCV #### [address] [address] Turning Machine Operator: Jasbir Montalvo MD #### AHSVIN DUARTERP #### [facility] [address] [place] [address] Turning Machine Operator: Samuel Olivia MD Gamma-globulins 1.0 g/dL Normal 0.5-1.5 [facility] Comment on above: Performed By: #### A XUAN, GLYHGB, CRP, SED, PE, CDP, TSHX, HIVCMB, CK, ANAX, CP, B12FOL, VD25, AHCV #### [address] [address] Turning Machine Operator: Jasbir Montalvo MD #### ASHVIN DUARTERP #### [facility] [address] [address] Turning Machine Operator: Samuel Olivia MD Gamma-globulins,% 14 % Normal 9-20 [facility] Comment on above: Performed By: #### A XUAN, GLYHGB, CRP, SED, PE, CDP, TSHX, HIVCMB, CK, ANAX, CP, B12FOL, VD25, AHCV #### [address] [address] Turning Machine Operator: Jasbir Montalvo MD #### PACHECO DUARTE #### [address] [address] Turning Machine Operator: Samuel Olivia MD Total Prot. Sum 7.1 g/dL Normal 6.3-8.2 [facility] Comment on above: Performed By: #### A XUAN, GLYHGB, CRP, SED, PE, CDP, TSHX, HIVCMB, CK, ANAX, CP, B12FOL, VD25, AHCV #### [address] [address] Turning Machine Operator: Jasbir Montalvo MD #### AMGE, ALYARP #### [facility] [address], [place] [id number] Turning Machine Operator: Samuel Olivia MD Total Prot. Sum,% 100 % Normal 98-102 [facility] Comment on above: Performed By: #### A XUAN, GLYHGB, CRP, SED, PE, CDP, TSHX, HIVCMB, CK, ANAX, CP, B12FOL, VD25, AHCV #### [address] [address] Turning Machine Operator: Jasbir Montalvo MD #### ASHVIN DUARTERP #### [facility] [address], [place] [phone] Turning Machine Operator: Samuel Olivia MD B12/Folate Panelon 4 Cobalamin (Vitamin B12) [Mass/Vol] 577 pg/mL Normal 232-1245 [facility] Comment on above: Performed By: #### A XUAN, GLYHGB, CRP, SED, PE, CDP, TSHX, HIVCMB, CK, ANAX, CP, B12FOL, VD25, AHCV #### [address] [address] Turning Machine Operator: Jasbir Montalvo MD #### PACHECO DUARTE #### [facility] [address], [place] [phone] Turning Machine Operator: Samuel Olivia MD C-Reactive Proteinon 024 CRP [Mass/Vol] 20.1 mg/L High 0.0-5.0 [facility] Comment on above: Performed By: #### A XUAN, GLYHGB, CRP, SED, PE, CDP, TSHX, HIVCMB, CK, ANAX, CP, B12FOL, VD25, AHCV #### [address] [address] Turning Machine Operator: Jasbir Montalvo MD #### AMGE, ALYARP #### [facility] [address] [place] [address] Turning Machine Operator: Samuel Olivia MD CBC with Diffon 11-25-2023 Abs. Basophil 0.09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 [place] [address] Result Comment: Anti -acetylcholine receptor blocking antibody test is used as an aid in diagnosis of myasthenia gravis. A negative result cannot exclude myasthenia gravis. Clinical correlation is required. Performed By: #### A CEBAB #### [facility] CLIA [id number] [address] [place] [address] [place] [facility] Acetylcholine receptor blocking Ab/Acetylcholine Ab.total (S) [Molar fraction] <13 Normal <21 [facility] Comment on above: Order Comment: Sherry hu Type: BLOOD SPECIMEN Ordering Facility: [facility] Address: [address] [place] [address] Performed By: #### A CEBAB #### [facility] CLIA [id number] [address] [place] [address] OF [place] CNOVon 09-19-2023 CNOV Office Visit (NREUS2 ) -- LESLYANDRY Magallanes ([id number]) 1960 M Date Time Provider Department 09/19/23 11:00 AM SHANE PARHAM NREUS2 During your visit today, we recorded the following information about you: Pulse Blood pressure 82/minute 133/69 Shane Parham PA-C 09/19/2023 4:39 PM Signed [facility] - FOLLOW UP EVALUATION Say Mccormick MD [address] [facility] [id number] Dear Say Mccormick MD: I had the pleasure of [...] Row Office Visit from 09/19/2023 in [facility] from 01/21/2022 in [facility] [...] it Current Outpatient Medications Medication Sig Insulin Ary, Disposable, (BD INSULIN PEN NEEDLE UF) 29 [...] 1 tab (more content not included)... Normal [facility] José Antonio 09-12-2023 CNPN Telephone (NREUS2) -- ANDRY PIERRE ([id number]) 1960 Date Time Provider Department 09/12/23 SHANE [...] months, dizzy and can hardly walk - [phone]. Pranav Bhatia 09/16/2023 4:24 PM Signed Patient calling [...] if he should see surgery or neurology. Pranav Bhatia 09/16/2023 4:41 PM Signed Patient scheduled [...] with infarction (more content not included)... Normal [facility] Office Visiton 08-19-2023 Follow-up visit [id number] Joanie Pierre 1960 M Date Provider Department Center 08/19/2023 1596-SURI BANDA Family History Problem Relation Age of Onset Coronary artery disease Mother Coronary artery disease Father Family Status - Relation Status Age at Mother Father Level of Service:39167 [place] OFFICE/OUTPATIENT ESTABLISHED MOD MDM 30-39 MIN Normal [facility] 36on 07-23-2023 36 Called to schedule c onsult to discuss Nevro SCS. Pt had appointment that he had missed with pain management to discuss this. Glenny gatica called pt after missed appointment and pt asked if anyone in our facility specialized in DBS. Pt currently has [employer] DBS and would like to follow up with Dr. Lloyd instead. VM was left for pt to return my call to schedule if he chooses. [facility] José Antonio 07-07-2023 CNPN Telephone (NREUS2) -- ANDRY PIERRE ([id number]) 1960 M Date Time Provider Department 07/07/23 WESLEY ROSE NREUS2 During your visit today, we [...] RN 07/10/2023 9:15 AM Addendum Spoke with public health representative from Dr. Kumar's office, they report [...] took it Date Reviewed: 01/30/2022 Reviewed by: Steffel, Virginia E, RN - Fully Assessed Prescriptions as of [...] Status:Closed by KERWIN BRITO on 07/10/23 Normal [facility] Office Visiton 05-21-2023 Follow-up visit [id number] Joanie Pierre 1960 M Date Provider Department Center 05/21/2023 Myke-SURI BANDA [facility] Family History Problem Relation Age of Onset Coronary artery disease Mother Coronary artery disease Father Family Status - Relation Status Age at Mother Father Level of Service:02721 [place] OFFICE/OUTPATIENT ESTABLISHED MOD MDM 30-39 MIN Reason for Visit and Comments: Follow-up [[id number]] Normal [facility] INSULINon 02-21-2023 Insulin 9.5 uIU/mL Normal 2.6-24.9 [facility] Comment on above: Performed By: #### I NSULIN #### [facility] [address] [place] [address] Dr. Miah Buck XR LSPINE 2_3 VIEWSon 2022 XR LSPINE 2_3 VIEWS EXAMINATION: XR LSPI NE 2_3 VIEWS HISTORY: Low back pain , [...] ROCK AVELAR Date: 2023-02-21 06:19 Normal [facility] BNPon 02-20-2023 Natriuretic peptide B (Bld) [Mass/Vol] 52.0 pg/mL Normal <=900.0 [facility] Comment on above: Performed By: #### M G, CMP, BNP, TSH, CRP #### [facility] [address] [place] [address] Dr. Miah Buck CBC AUTO DIFFon 02-20-2023 BASO # 0.1 103/ul Normal 0.0-0.1 [facility] Comment on above: Performed By: #### A 1C #### [facility] [address] [place] [address] Dr. Miah Buck Basophils/100 WBC (Bld) 0.8 % Normal 0.2-2.0 [facility] Comment on above: Performed By: #### A 1C #### [facility] [address] [place] [address] Dr. Miah Buck EO # 0.3 103/ul Normal 0.0-0.7 [facility] Comment on above: Performed By: #### A 1C #### [facility] [address] [place] [address] Dr. Miah Buck Eosinophils/100 WBC (Bld) 3.5 % Normal 0.9-7.0 [facility] Comment on above: Performed By: #### A 1C #### [facility] [address] [place] [address] Dr. Miah Buck Erythrocyte distribution width (RBC) [Ratio] 12.7 % Normal 11.0-15.0 [facility] Comment on above: Performed By: #### A 1C #### [facility] [address] [place] [address] [address] Miah Buck Hematocrit (Bld) [Volume fraction] 48.8 % Normal 42.0-54.0 [facility] Comment on above: Performed By: #### A 1C #### [facility] [address] [place] [address] Dr. Miah Buck Hemoglobin (Bld) [Mass/Vol] 16.8 g/dL Normal 14.0-18.0 [facility] Comment on above: Performed By: #### A 1C #### [facility] [address] [place] [address] Dr. Miah Buck IG # 0.04 10e3/ul Critically high 0.00-0.03 [facility] Comment on above: Performed By: #### A 1C #### [facility] [address] [place] [address] Dr. Miah Buck IG % 0.6 % Critically high 0.0-0.5 [facility] Comment on above: Performed By: #### A 1C #### [facility] [address] [place] [address] Dr. Miah Buck LYMPH # 1.9 103/ul Normal 1.2-3.8 [facility] Comment on above: Performed By: #### A 1C #### [facility] [address] [place] [address] Dr. Miah Buck Lymphocytes/100 WBC (Bld) 27.0 % Normal 20.5-60.0 [facility] Comment on above: Performed By: #### A 1C #### [facility] [address] [place] [address] Dr. Miah Buck MANUAL DIFF REQ NO Normal [facility] Comment on above: Performed By: #### A 1C #### [facility] [address] [place] [address] Dr. Miah Buck MCH (RBC) [Entitic mass] 31.5 pg Normal 25.9-34.0 [facility] Comment on above: Performed By: #### A 1C #### [facility] [address] [address] [address] Miah Buck MCHC (RBC) [Mass/Vol] 34.4 g/dL Normal 29.9-35.2 [facility] Comment on above: Performed By: #### A 1C #### [facility] [address] [address] [address] Miah Buck MCV (RBC) [Entitic vol] 91.4 fL Normal 80.0-94.0 [facility] Comment on above: Performed By: #### A 1C #### [facility] [address] [address] [address] Miah Buck MONO # 0.4 103/ul Normal 0.3-0.8 [facility] Comment on above: Performed By: #### A 1C #### [facility] [address] [place] [address] Dr. Miah Buck Monocytes/100 WBC (Bld) 5.5 % Normal 1.7-12.0 [facility] Comment on above: Performed By: #### A 1C #### [facility] [address] [place] [address] Dr. Miah Buck NEUT # 4.5 103/ul Normal 1.4-6.5 [facility] Comment on above: Performed By: #### A 1C #### [facility] [address] [place] [address] Dr. Miah Buck Neutrophils/100 WBC (Bld) 62.6 % Normal 43.0-75.0 [facility] Comment on above: Performed By: #### A 1C #### [facility] [address] [place] [address] Dr. Miah Buck Platelet mean volume (Bld) [Entitic vol] 10.6 fL Normal 9.5-13.5 [facility] Comment on above: Performed By: #### A 1C #### [facility] [address] [place] [address] Dr. Miah Buck PLT 204 103/ul Normal 150-450 [facility] Comment on above: Performed By: #### A 1C #### [facility] [address] [address] [address] Miah Buck RBC 5.34 106/ul Normal 4.70-6.10 [facility] Comment on above: Performed By: #### A 1C #### [facility] [address] [address] [address] Miah Buck WBC 7.2 103/ul Normal 4.0-11.0 [facility] Comment on above: Performed By: #### A 1C #### [facility] [address] [address] [address] Miah Buck DIRECT LDLon 02-20-2023 Cholesterol in LDL [Mass/Vol] 173 mg/dL Normal [facility] Comment on above: Performed By: #### A 1C #### [facility] [address] [place] [address] Dr. Miah Buck DLDL NORMAL SEE BELOW Normal [facility] Comment on above: Result Comment: <100 mg/dl OPTIMAL 100 - 129 mg/dl NEAR OR ABOVE OPTIMAL 130 - 159 mg/dl BORDERLINE HIGH 160 - 189 mg/dl HIGH >190 mg/dl VERY HIGH Performed By: #### A 1C #### [facility] [address] [address] [address] Miah Buck FREE T3on 02-20-2023 FREE T3 1.75 pg/mlL Critically low 2.18-3.98 [facility] Comment on above: Performed By: #### A 1C #### [facility] [address] [place] [address] Dr. Miah Buck GLYCOHEMOGLOBIN A1Con 2022 ADA RECOMMENDATION SEE BELOW Normal [facility] Comment on above: Result Comment: ADA RECOMMENDED LIMIT 4.0 - 6.0 ADA THERAPEUTIC TARGET < 7.0 ACTION SUGGESTED > 7.0 Performed By: #### A 1C #### [facility] [address] [place] [address] Dr. Miah Buck Glucose [Mass/Vol] 298 mg/dL Normal [facility] Comment on above: Performed By: #### A 1C #### [facility] [address] [place] [address] Dr. Miah Buck HbA1c (Bld) [Mass fraction] 12.0 % Critically high 4.5-6.2 [facility] Comment on above: Performed By: #### A 1C #### [facility] [address] [address] [address] Miah Buck LIPID PROFILEon 02-20-2023 CHOL-HDL RATIO NORM SEE BELOW Normal [facility] Comment on above: Result Comment: 3.3 - 4.4 LOW RISK 4.4 - 7.1 AVERAGE RISK 7.1 - 11.0 MODERATE RISK >11.0 HIGH RISK Performed By: #### A 1C #### [facility] [address] [address] [address] Miah Buck Cholesterol [Mass/Vol] 303 mg/dL Critically high <=200 [facility] Comment on above: Performed By: #### A 1C #### [facility] [address] [address] [address] Miah Buck Cholesterol in HDL [Mass/Vol] 33 mg/dL Critically low 40-60 [facility] Comment on above: Performed By: #### A 1C #### [facility] [address] [address] [address] Miah Buck Cholesterol.total/C holesterol in HDL [Mass ratio] 9.2 {ratio} Normal [facility] Comment on above: Performed By: #### A 1C #### [facility] [address] [address] [address] Miah Buck HDL NORMAL > or = 60 mg/dl - LO W CARDIOVASCULAR RISK <40 mg/dl - HIGH CARDIOVASCULAR RISK Normal [facility] Comment on above: Performed By: #### A 1C #### [facility] [address] [address] [address] Miah Buck Triglyceride [Mass/Vol] 454 mg/dL Critically high <=150 [facility] Comment on above: Performed By: #### A 1C #### [facility] [address] [address] [address] Miah Buck VLDL CALC 90.8 mg/dL Normal [facility] Comment on above: Performed By: #### A 1C #### [facility] [address] [place] [address] Dr. Miah Buck Office Visiton 02-20-2023 Follow-up visit [id number] Joanie Pierre aleja Magallanes 1960 M Date Provider Department Center 02/20/2023 [facility] Family History Problem Relation Age of Onset Coronary artery disease Mother Coronary artery disease Father Family Status - Relation Status Age at Mother Father Level of Service:09163 MI OFFICE/OUTPATIENT ESTABLISHED MOD MDM 30-39 MIN Normal [facility] PROF 14(COMP METB)on 023 Albumin [Mass/Vol] 3.5 g/dL Normal 3.4-5.0 [facility] Comment on above: Performed By: #### A 1C #### [facility] [address] [place] [address] Dr. Miah Buck Albumin/Globulin [Mass ratio] 0.7 {ratio} Normal [facility] Comment on above: Performed By: #### A 1C #### [facility] [address] [place] [address] Dr. Miah Buck ALP [Catalytic activity/Vol] 146 U/L Critically high 46-116 [facility] Comment on above: Performed By: #### A 1C #### [facility] [address] [place] [address] Dr. Miah Buck ALT [Catalytic activity/Vol] 40 U/L Normal 16-63 [facility] Comment on above: Performed By: #### A 1C #### [facility] [address] [address] [address] Miah Buck Anion gap [Moles/Vol] 13.8 mmol/L Normal [facility] Comment on above: Performed By: #### A 1C #### [facility] [address] [place] [address] Dr. Miah Buck AST [Catalytic activity/Vol] 19 U/L Normal 15-37 [facility] Comment on above: Performed By: #### A 1C #### [facility] [address] [place] [address] Dr. Miah Buck Bilirubin [Mass/Vol] 0.4 mg/dL Normal 0.2-1.0 [facility] Comment on above: Performed By: #### A 1C #### [facility] [address] [place] [address] Dr. Miah Buck Calcium [Mass/Vol] 9.1 mg/dL Normal 8.5-10.1 [facility] Comment on above: Performed By: #### A 1C #### [facility] [address] [address] [address] Miah Buck Chloride [Moles/Vol] 99 mmol/L Normal 98-107 [facility] Comment on above: Performed By: #### A 1C #### [facility] [address] [place] [address] Dr. Miah Buck CO2 [Moles/Vol] 27.6 mmol/L Normal 21.0-32.0 [facility] Comment on above: Performed By: #### A 1C #### [facility] [address] [place] [address] Dr. Miah Buck Creatinine [Mass/Vol] 1.88 mg/dL Critically high 0.70-1.30 [facility] Comment on above: Performed By: #### A 1C #### [facility] [address] [place] [address] Dr. Miah Buck EGFR-AF BELGIAN 44 mL/min/1.73m2 Critically low >=60 [facility] Comment on above: Performed By: #### A 1C #### [facility] [address] [place] [address] Dr. Miah Buck EGFR-NON AF BELGIAN 37 mL/min/1.73m2 Critically low >=60 [facility] Comment on above: Performed By: #### A 1C #### [facility] [address] [place] [address] Dr. Miah Buck Globulin (S) [Mass/Vol] 4.7 g/dL Normal [facility] Comment on above: Performed By: #### A 1C #### [facility] [address] [place] [address] Dr. Miah Buck Glucose [Mass/Vol] 524 mg/dL Critically high 74-[address] [facility] Comment on above: Performed By: #### A 1C #### [facility] [address] [address] [address] Miah Buck Potassium [Moles/Vol] 4.4 mmol/L Normal 3.5-5.1 [facility] Comment on above: Performed By: #### A 1C #### [facility] [address] [address] [address] Miah Buck Protein [Mass/Vol] 8.2 g/dL Normal 6.4-8.2 [facility] Comment on above: Performed By: #### A 1C #### [facility] [address] [place] [address] Dr. Miah Buck Sodium [Moles/Vol] 136 mmol/L Normal 136-145 [facility] Comment on above: Performed By: #### A 1C #### [facility] [address] [place] [address] Dr. Miah Buck Urea nitrogen [Mass/Vol] 21.0 mg/dL Critically high 7.0-18.0 [facility] Comment on above: Performed By: #### A 1C #### [facility] [address] [place] [address] Dr. Miah Buck Urea nitrogen/Creatinine [Mass ratio] 11.2 mg/mg Normal [facility] Comment on above: Performed By: #### A 1C #### [facility] [address] [place] [address] Dr. Miah Buck T4on 02-20-2023 T4 [Mass/Vol] 7.80 ug/dL Normal 4.50-12.10 [facility] Comment on above: Performed By: #### A 1C #### [facility] [address] [place] [address] Dr. Miah Buck TSHon 02-20-2023 TSH 0.740 uIU/mL Normal 0.358-3.740 [facility] Comment on above: Performed By: #### A 1C #### [facility] [address] [place] [address] Dr. Miah Buck URIC ACID SERUMon 02-20-2023 Urate [Mass/Vol] 8.2 mg/dL Critically high 3.5-7.2 [facility] Comment on above: Performed By: #### A 1C #### [facility] [address] [address] [address] Miah Buck CREATININEon 01-07-2023 Creatinine [Mass/Vol] 2.09 mg/dL Critically high 0.70-1.30 [facility] Comment on above: Performed By: #### M G, CMP, BNP, TSH, CRP #### [facility] [address] [address] [address] Miah Buck EGFR-AF BELGIAN 39 mL/min/1.73m2 Critically low >=60 [facility] Comment on above: Performed By: #### M G, CMP, BNP, TSH, CRP #### [facility] [address] [place] [address] Dr. Miah Buck EGFR-NON AF BELGIAN 32 mL/min/1.73m2 Critically low >=60 [facility] Comment on above: Performed By: #### M G, CMP, BNP, TSH, CRP #### [facility] [address] [place] [address] ABD/PELV W CONon [...] ROCK AVELAR Date: 2023-01-07 10:18 Normal [facility] Covid-19 PCR (CVDTBH)on SARS-CoV-2 (COVID-19) RNA EMMY+probe Ql (Unsp spec) Not detected Normal NOT DETECTED [facility] Comment on above: Result Comment: This test is not yet approved or cleared by the [place] FDA. When there are no FDA-approved or cleared tests available, and other criteria are met, FDA can make tests available under an emergency access mechanism called an Emergency Use Authorization (EUA). The EUA for this test is supported by the [place] of Health and Human Service's (HHS's) declaration [...] M G, CMP, BNP, TSH, CRP #### [facility] [address] [address] [address] HEAD WO CONon [...] LOS BAIRES Date: 2022-05-29 09:41 Normal [facility] CT NECK ST WO CONon 05-29-20 [...] ALISA HOLMAN Date: 2022-05-29 10:26 Normal [facility] VIT D 25-OH LABCORPon 2021 Vitamin D, 25-Hydroxy 27.6 ng/mL Critically low 30.0-100.0 [facility] Comment on above: Result Comment: Rima min D deficiency has been defined by the [place] of [employer] and an Endocrine Society practice guideline as a level of serum 25-OH vitamin D less than 20 ng/mL (1,2). The Endocrine Society went on to further define vitamin D insufficiency as a level between 21 and 29 ng/mL (2). 1. IOM ([place] of [employer]). 2010. Dietary reference intakes for calcium and D. [place]: The National Academies Press. 2. Su MF, Agapito HOSKINS, Mason KAUFMAN, et al. Evaluation, treatment, and prevention of vitamin D deficiency: an Endocrine Society clinical practice guideline. JCEM. 2010; 96(7):1911-30. Performed By: #### V ITADLC #### [facility] [address] [address] [address] Miah Buck XR CHEST 2 Von [...] ROCK AVELAR Date: 2022-05-24 07:37 Normal [facility] BNPon 05-23-2022 Natriuretic peptide B (Bld) [Mass/Vol] 53.0 pg/mL Normal <=900.0 [facility] Comment on above: Performed By: #### M G, CMP, BNP, TSH, CRP #### [facility] [address] [address] [address] Miah Buck CBC AUTO DIFFon 05-23-2022 BASO # 0.1 103/ul Normal 0.0-0.1 [facility] Comment on above: Performed By: #### A 1C #### [facility] [address] [address] [address] Miah Buck Basophils/100 WBC (Bld) 0.7 % Normal 0.2-2.0 [facility] Comment on above: Performed By: #### A 1C #### [facility] [address] [place] [address] Dr. Miah Buck EO # 0.3 103/ul Normal 0.0-0.7 [facility] Comment on above: Performed By: #### A 1C #### [facility] [address] [place] [address] Dr. Miah Buck Eosinophils/100 WBC (Bld) 4.0 % Normal 0.9-7.0 [facility] Comment on above: Performed By: #### A 1C #### [facility] [address] [place] [address] Dr. Miah Buck Erythrocyte distribution width (RBC) [Ratio] 13.4 % Normal 11.0-15.0 [facility] Comment on above: Performed By: #### A 1C #### [facility] [address] [place] [address] Dr. Miah Buck Hematocrit (Bld) [Volume fraction] 46.1 % Normal 42.0-54.0 [facility] Comment on above: Performed By: #### A 1C #### [facility] [address] [place] [address] Dr. Miah Buck Hemoglobin (Bld) [Mass/Vol] 15.5 g/dL Normal 14.0-18.0 [facility] Comment on above: Performed By: #### A 1C #### [facility] [address] [place] [address] Dr. Miah Buck IG # 0.03 10e3/ul Normal 0.00-0.03 [facility] Comment on above: Performed By: #### A 1C #### [facility] [address] [place] [address] Dr. Miah Buck IG % 0.4 % Normal 0.0-0.5 [facility] Comment on above: Performed By: #### A 1C #### [facility] [address] [place] [address] Dr. Miah Buck LYMPH # 2.0 103/ul Normal 1.2-3.8 [facility] Comment on above: Performed By: #### A 1C #### [facility] [address] [address] [address] Miah Buck Lymphocytes/100 WBC (Bld) 28.1 % Normal 20.5-60.0 [facility] Comment on above: Performed By: #### A 1C #### [facility] [address] [address] [address] Miah Buck MANUAL DIFF REQ NO Normal [facility] Comment on above: Performed By: #### A 1C #### [facility] [address] [place] [address] Dr. Miah Buck MCH (RBC) [Entitic mass] 31.8 pg Normal 25.9-34.0 [facility] Comment on above: Performed By: #### A 1C #### [facility] [address] [place] [address] Dr. Miah Buck MCHC (RBC) [Mass/Vol] 33.6 g/dL Normal 29.9-35.2 [facility] Comment on above: Performed By: #### A 1C #### [facility] [address] [place] [address] Dr. Miah Buck MCV (RBC) [Entitic vol] 94.7 fL Critically high 80.0-94.0 [facility] Comment on above: Performed By: #### A 1C #### [facility] [address] [place] [address] Dr. Miah Buck MONO # 0.5 103/ul Normal 0.3-0.8 [facility] Comment on above: Performed By: #### A 1C #### [facility] [address] [place] [address] Dr. Miah Buck Monocytes/100 WBC (Bld) 7.1 % Normal 1.7-12.0 [facility] Comment on above: Performed By: #### A 1C #### [facility] [address] [place] [address] Dr. Miah Buck NEUT # 4.3 103/ul Normal 1.4-6.5 [facility] Comment on above: Performed By: #### A 1C #### [facility] [address] [place] [address] Dr. Miah Buck Neutrophils/100 WBC (Bld) 59.7 % Normal 43.0-75.0 [facility] Comment on above: Performed By: #### A 1C #### [facility] [address] [place] [address] Dr. Miah Buck Platelet mean volume (Bld) [Entitic vol] 10.6 fL Normal 9.5-13.5 [facility] Comment on above: Performed By: #### A 1C #### [facility] [address] [place] [address] Dr. Miah Buck PLT 209 103/ul Normal 150-450 [facility] Comment on above: Performed By: #### A 1C #### [facility] [address] [place] [address] Dr. Miah Buck RBC 4.87 106/ul Normal 4.70-6.10 [facility] Comment on above: Performed By: #### A 1C #### [facility] [address] [address] [address] Miah Buck WBC 7.2 103/ul Normal 4.0-11.0 [facility] Comment on above: Performed By: #### A 1C #### [facility] [address] [place] [address] Dr. Miah Buck CRPon 05-23-2022 CRP 1.0 mg/dL Normal <=1.0 [facility] Comment on above: Performed By: #### M G, CMP, BNP, TSH, CRP #### [facility] [address] [place] [address] Dr. Miah Buck ECHOCARDIO M/2D COMPLETEon 0 05-23-2022 ECHOCARDIO M/2D COMPLETE Patient: ANDRY PIERREShiar Exam Date: 05/23/2022 : 1960 Gender:M Ordering : [facility] Admission #: [id number] Family : DR SAY MCCORMICK . Order #: [id number] CLICK HERE TO VIEW EXAM ECHOCARDIOGRAM REPORT [...] M.D. on 05/23/2022 at 18:40 Normal [facility] MAGNESIUMon 05-23-2022 Magnesium [Mass/Vol] 2.3 mg/dL Normal 1.8-2.4 [facility] Comment on above: Performed By: #### M G, CMP, BNP, TSH, CRP #### [facility] [address] [address] [address] Miah Buck PROF 14(COMP METB)on 022 Albumin [Mass/Vol] 3.6 g/dL Normal 3.4-5.0 [facility] Comment on above: Performed By: #### M G, CMP, BNP, TSH, CRP #### [facility] [address] [address] [address] Miah Buck Albumin/Globulin [Mass ratio] 0.9 {ratio} Normal [facility] Comment on above: Performed By: #### M G, CMP, BNP, TSH, CRP #### [facility] [address] [address] [address] Miah Buck ALP [Catalytic activity/Vol] 113 U/L Normal 46-116 [facility] Comment on above: Performed By: #### M G, CMP, BNP, TSH, CRP #### [facility] [address] [place] [address] Dr. Miah Buck ALT [Catalytic activity/Vol] 34 U/L Normal 16-63 [facility] Comment on above: Performed By: #### M G, CMP, BNP, TSH, CRP #### [facility] [address] [place] [address] Dr. Miah Buck Anion gap [Moles/Vol] 10.7 mmol/L Normal [facility] Comment on above: Performed By: #### M G, CMP, BNP, TSH, CRP #### [facility] [address] [place] [address] Dr. Miah Buck AST [Catalytic activity/Vol] 23 U/L Normal 15-37 [facility] Comment on above: Performed By: #### M G, CMP, BNP, TSH, CRP #### [facility] [address] [place] [address] Dr. Miah Buck Bilirubin [Mass/Vol] 0.3 mg/dL Normal 0.2-1.0 [facility] Comment on above: Performed By: #### M G, CMP, BNP, TSH, CRP #### [facility] [address] [place] [address] Dr. Miah Buck Calcium [Mass/Vol] 8.9 mg/dL Normal 8.5-10.1 [facility] Comment on above: Performed By: #### M G, CMP, BNP, TSH, CRP #### [facility] [address] [place] [address] Dr. Miah Buck Chloride [Moles/Vol] 105 mmol/L Normal 98-107 [facility] Comment on above: Performed By: #### M G, CMP, BNP, TSH, CRP #### [facility] [address] [place] [address] Dr. Miah Buck CO2 [Moles/Vol] 26.5 mmol/L Normal 21.0-32.0 [facility] Comment on above: Performed By: #### M G, CMP, BNP, TSH, CRP #### [facility] [address] [place] [address] Dr. Miah Buck Creatinine [Mass/Vol] 1.73 mg/dL Critically high 0.70-1.30 [facility] Comment on above: Performed By: #### M G, CMP, BNP, TSH, CRP #### [facility] [address] [place] [address] Dr. Miah Buck EGFR-AF BELGIAN 49 mL/min/1.73m2 Critically low >=60 [facility] Comment on above: Performed By: #### M G, CMP, BNP, TSH, CRP #### [facility] [address] [place] [address] Dr. Miah Buck EGFR-NON AF BELGIAN 40 mL/min/1.73m2 Critically low >=60 [facility] Comment on above: Performed By: #### M G, CMP, BNP, TSH, CRP #### [facility] [address] [place] [address] Dr. Miah Buck Globulin (S) [Mass/Vol] 4.0 g/dL Normal [facility] Comment on above: Performed By: #### M G, CMP, BNP, TSH, CRP #### [facility] [address] [place] [address] Dr. Miah Buck Glucose [Mass/Vol] 285 mg/dL Critically high 74-106 [facility] Comment on above: Performed By: #### M G, CMP, BNP, TSH, CRP #### [facility] [address] [place] [address] Dr. Miah Buck Potassium [Moles/Vol] 4.2 mmol/L Normal 3.5-5.1 [facility] Comment on above: Performed By: #### M G, CMP, BNP, TSH, CRP #### [facility] [address] [place] [address] Dr. Miah Buck Protein [Mass/Vol] 7.6 g/dL Normal 6.4-8.2 The [facility] Comment on above: Performed By: #### M G, CMP, BNP, TSH, CRP #### [facility] [address] [place] [address] Dr. Miah Buck Sodium [Moles/Vol] 138 mmol/L Normal 136-145 [facility] Comment on above: Performed By: #### M G, CMP, BNP, TSH, CRP #### [facility] [address] [place] [address] Dr. Miah Buck Urea nitrogen [Mass/Vol] 23.0 mg/dL Critically high 7.0-18.0 [facility] Comment on above: Performed By: #### M G, CMP, BNP, TSH, CRP #### [facility] [address] [place] [address] Dr. Miah Buck Urea nitrogen/Creatinine [Mass ratio] 13.3 mg/mg Normal [facility] Comment on above: Performed By: #### M G, CMP, BNP, TSH, CRP #### [facility] [address] [place] [address] Dr. Miah Buck TSHon 05-23-2022 TSH 0.714 uIU/mL Normal 0.358-3.740 [facility] Comment on above: Performed By: #### M G, CMP, BNP, TSH, CRP #### [facility] [address] [place] [address] Dr. Miah Buck VITAMIN B12on 05-23-2022 Cobalamin (Vitamin B12) [Mass/Vol] 930.0 pg/mL Normal 193.0-986.0 [facility] Comment on above: Performed By: #### V ITB12 #### [facility] [address] [place], [place] [id number] Dr. Miah Buck BASIC METABOLIC PANELon 10-2 Calcium [Mass/Vol] 8.3 mg/dL Low 8.6-10.3 The [facility] Comment on above: Order Comment: No: D o not add to previous draw Performed By: #### 1 0070, 11471, 55874, 42745 #### [facility] [address] [place] [address], [place] Chloride [Moles/Vol] 105 mmol/L Normal 98-107 [facility] Comment on above: Order Comment: No: D o not add to previous draw Performed By: #### 1 0070, 24275, 87430, 41431 #### [facility] [address] [place] [address], [place] CO2 [Moles/Vol] 22 mmol/L Normal 21-31 [facility] Comment on above: Order Comment: No: D o not add to previous draw Performed By: #### 1 0070, 00048, 07674, 04083 #### [facility] [address] [place] [address], [place] Creatinine [Mass/Vol] 1.31 mg/dL High 0.70-1.30 [facility] Comment on above: Order Comment: No: D o not add to previous draw Performed By: #### 1 0070, 73709, 42637, 12191 #### [facility] [address] [place] [address], [place] eGFR- non- 56 ml/min/1.73sq m Abnormal >60 [facility] Comment on above: Order Comment: No: D o not add to previous draw Performed By: #### 1 0070, 15227, 17787, 85904 #### [facility] [address] [place] [address], [place] GFR/1.73 sq M.predicted among blacks MDRD (S/P/Bld) [Vol rate/Area] mL/min/{1.73_m2} Normal >60 [facility] Comment on above: Order Comment: No: D o not add to previous draw Performed By: #### 1 0070, 27987, 87411, 15277 #### [facility] [address] [place] [address], [facility] Glucose [Mass/Vol] 231 mg/dL High 70-100 [facility] Comment on above: Order Comment: No: D o not add to previous draw Performed By: #### 1 0070, 07501, 11549, 82426 #### [facility] [address] [place] [address], [facility] Potassium [Moles/Vol] 3.6 mmol/L Normal 3.5-5.1 [facility] Comment on above: Order Comment: No: D o not add to previous draw Performed By: #### 1 0070, 96546, 12051, 33569 #### [facility] [address] [place] [address], [facility] Sodium [Moles/Vol] 139 mmol/L Normal 136-145 [facility] Comment on above: Order Comment: No: D o not add to previous draw Performed By: #### 1 0070, 05313, 92650, 10400 #### [facility] [address] [place] [address], [facility] Urea nitrogen [Mass/Vol] 17 mg/dL Normal 7-25 [facility] Comment on above: Order Comment: No: D o not add to previous draw Performed By: #### 1 0070, 34419, 36870, 37821 #### [facility] [address] [place] [id number], [facility] CBC W/DIFFon 07-27-2021 ABS IMM GRANS 0.1 10*3/uL Normal 0.0-0.2 [facility] Comment on above: Performed By: #### 1 0070, 02132, 03707, 81421 #### [facility] [address] [place] [address], [facility] ABS NEUTROPHILS 10.2 10*3/uL High 1.6-7.6 [facility] Comment on above: Performed By: #### 1 0070, 64697, 85495, 18938 #### [facility] [address] [place] [address], [facility] Basophils (Bld) [#/Vol] 0.0 10*3/uL Normal 0.0-0.2 [facility] Comment on above: Performed By: #### 1 0070, 87495, 40093, 45616 #### [facility] [address] [facility] [address], [facility] Basophils/100 WBC (Bld) 0.3 % Normal 0.0-1.0 [facility] Comment on above: Performed By: #### 1 0070, 97557, 51674, 87266 #### [facility] [address] [place] [address], [facility] Eosinophils (Bld) [#/Vol] 0.0 10*3/uL Normal 0.0-0.5 [facility] Comment on above: Performed By: #### 1 0070, 92631, 60728, 78338 #### [facility] [address] [facility] [place] [address], [facility] Eosinophils/100 WBC (Bld) 0.0 % Normal 0.0-6.0 [facility] Comment on above: Performed By: #### 1 0070, 98260, 11937, 47117 #### [facility] [address] [facility] [place] [address], [facility] Erythrocyte distribution width (RBC) [Ratio] 13.2 % Normal 11.5-15.0 [facility] Comment on above: Performed By: #### 1 0070, 95301, 35992, 94267 #### [facility] [address] [facility] [id number], [facility] Hematocrit (Bld) [Volume fraction] 44.2 % Normal 39.0-50.0 [facility] Comment on above: Performed By: #### 1 0070, 15379, 08400, 04659 #### [facility] [address] [facility]. [address] Hemoglobin (Bld) [Mass/Vol] 14.9 g/dL Normal 13.0-17.0 [facility] Comment on above: Performed By: #### 1 0, 53935, 54377, 23661 #### [facility] [address] [facility]. [address] IMMATURE GRANS 0.7 % Normal 0.0-1.0 [facility] Comment on above: Performed By: #### 1 0070, 32863, 92896, 46278 #### [facility] [address] Lymphocytes (Bld) [#/Vol] 1.0 10*3/uL Low 1.2-4.0 [facility] Comment on above: Performed By: #### 1 0, 52408, 90973, 93560 #### [facility] [address] Lymphocytes/100 WBC (Bld) 8.2 % Low 20.0-45.0 [facility] Comment on above: Performed By: #### 1 0, 41973, 28369, 44722 #### [facility] [address] [facility]. [address] MCH (RBC) [Entitic mass] 31.2 pg Normal 27.0-33.0 [facility] Comment on above: Performed By: #### 1 0070, 75913, 76998, 45151 #### [facility] [address] [facility]. [address] MCHC (RBC) [Mass/Vol] 33.7 g/dL Normal 32.0-35.0 [facility] Comment on above: Performed By: #### 1 0070, 63248, 05527, 93917 #### [facility] [address] [place] [address], [facility] MCV (RBC) [Entitic vol] 92.7 fL Normal 82.0-98.0 [facility] Comment on above: Performed By: #### 1 0070, 62886, 37344, 11798 #### [facility] [address] [place] [address], [facility] Monocytes (Bld) [#/Vol] 0.9 10*3/uL Normal 0.1-1.0 [facility] Comment on above: Performed By: #### 1 0070, 91673, 36027, 00702 #### [facility] [address] [facility] [place] [address], [facility] MONOS 7.0 % Normal 5.0-12.0 [facility] Comment on above: Performed By: #### 1 0070, 02410, 20380, 93253 #### [facility] [address] [facility] [place] [address], [facility] Neutrophils/100 WBC (Bld) 83.8 % High 40.0-72.0 [facility] Comment on above: Performed By: #### 1 0070, 62855, 24523, 15700 #### [facility] [address] [facility] [address], [facility] Nucleated RBC/100 WBC (Bld) [Ratio] 0 % Normal 0-0 [facility] Comment on above: Performed By: #### 1 0070, 24347, 30680, 97948 #### [facility] [address] [place] [address], [facility] PLAT CNT 198 10*3/uL Normal 150-400 [facility] Comment on above: Performed By: #### 1 0070, 18306, 90140, 53772 #### [facility] [address] [place] [address], [facility] RBC (Bld) [#/Vol] 4.77 10*6/uL Normal 4.20-5.70 [facility] Comment on above: Performed By: #### 1 0070, 55883, 87588, 36983 #### [facility] [address] [place] [address], [facility] WBC (Bld) [#/Vol] 12.15 10*3/uL High 4.00-10.60 [facility] Comment on above: Performed By: #### 1 0070, 04163, 37725, 48936 #### [facility] [address] [place] [address], [facility] LIVER BATTERYon 07-27-2021 Albumin [Mass/Vol] 3.3 g/dL Low 3.5-5.7 [facility] Comment on above: Order Comment: No: D o not add to previous draw Performed By: #### 1 0070, 16437, 98691, 60896 #### [facility] [address] [place] [address], [facility] ALKALINE PHOSPH 124 IU/L High 34-104 [facility] Comment on above: Order Comment: No: D o not add to previous draw Performed By: #### 1 0070, 36597, 66135, 86505 #### [facility] [address] [place] [address], [facility] ALT [Catalytic activity/Vol] 58 U/L High 7-52 [facility] Comment on above: Order Comment: No: D o not add to previous draw Performed By: #### 1 0070, 26926, 36453, 10113 #### [facility] [address] [place] [address], [place] AST [Catalytic activity/Vol] 48 U/L High 13-39 [facility] Comment on above: Order Comment: No: D o not add to previous draw Performed By: #### 1 0070, 64880, 93348, 32759 #### [facility] [address] [place] [address], [facility] Bilirubin [Mass/Vol] 0.8 mg/dL Normal 0.3-1.0 [facility] Comment on above: Order Comment: No: D o not add to previous draw Performed By: #### 1 0070, 25634, 25163, 78094 #### [facility] [address] [place] [address], [facility] Bilirubin.direct [Mass/Vol] 0.3 mg/dL High 0.0-0.2 [facility] Comment on above: Order Comment: No: D o not add to previous draw Performed By: #### 1 0070, 38895, 43213, 79684 #### [facility] [address] [place] [address], [facility] Protein [Mass/Vol] 6.2 g/dL Normal 6.0-8.3 [facility] Comment on above: Order Comment: No: D o not add to previous draw Performed By: #### 1 0070, 11388, 56351, 29434 #### [facility] [address] [place] [address], [facility] MAGNESIUM BLOODon 07-27-2021 Magnesium [Mass/Vol] 1.8 mg/dL Low 1.9-2.7 [facility] Comment on above: Order Comment: No: D o not add to previous draw Performed By: #### 1 0070, 33308, 76721, 48818 #### [facility] [address] [place] [address], [place] PHOSPHORUS BLOODon Phosphate [Mass/Vol] 2.9 mg/dL Normal 2.5-5.0 [facility] Comment on above: Order Comment: No: D o not add to previous draw Performed By: #### 1 0070, 48484, 64853, 90452 #### [facility] [address] [place] [address], [place] POC GLUCOSE LABon 07-27-2021 Glucose [Mass/Vol] 260 mg/dL High 70-100 [facility] Comment on above: Performed By: #### 8 5499 #### [facility] [address] [facility]. [address] Glucose [Mass/Vol] 225 mg/dL High 70-100 [facility] Comment on above: Performed By: #### 1 0070, 86761, 88563, 01225 #### [facility] [address] [facility]. [address] PROTHROMBIN TIMEon 1 INR Coag (PPP) [Relative time] 1.22 {INR} High 0.91-1.16 [facility] Comment on above: Order Comment: No: D o not add to previous draw Result Comment: ACCC P RECOMMENDED INR FOR WARFARIN THERAPY ------ ------- CONDITION INR PROPHYLAXIS OF VENOUS THROMBOSIS 2-3 (HIGH-RISK SURGERY) TREATMENT OF VENOUS THROMBOSIS 2-3 TREATMENT OF PULMONARY EMBOLISM 2-3 PREVENTION OF SYSTEMIC EMBOLISM: 2-3 ACUTE MYOCARDIAL INFARCTION TISSUE HEART VALVES VALVULAR HEART DISEASE ATRIAL FIBRILLATION RECURRENT SYSTEMIC EMBOLISM MECHANICAL HEART VALVE 2.5-3.5 FROM: ORAL ANTICOAGULANTS. MECHANISM OF ACTION, CLINICAL EFFECTIVENESS, AND OPTIMAL THERAPEUTIC RANGE. CHEST 1995;108:231S-246S. Performed By: #### 1 0, 09935, 31170, 58904 #### [facility] [address] [facility] [address] PT Coag (PPP) [Time] 15.4 s High 12.3-14.8 [facility] Comment on above: Order Comment: No: D o not add to previous draw Result Comment: ALL RESULTS MUST BE INTERPRETED WITH RESPECT TO BLOOD DRAWING ARTIFACT OR DILUTION ERROR OF ANTICOAGULANT AT THE TIME OF SAMPLING. Performed By: #### 1 0070, 96405, 61744, 19965 #### [facility] [address] [place] [id number], [place] BASIC METABOLIC PANELon 10-2 Calcium [Mass/Vol] 8.5 mg/dL Low 8.6-10.3 [facility] Comment on above: Order Comment: No: D o not add to previous draw Performed By: #### 8 5499 #### [facility] [address] [place] [address], [place] Chloride [Moles/Vol] 108 mmol/L High 98-107 [facility] Comment on above: Order Comment: No: D o not add to previous draw Performed By: #### 8 5499 #### [facility] [address] [place] [address], [place] CO2 [Moles/Vol] 24 mmol/L Normal 21-31 [facility] Comment on above: Order Comment: No: D o not add to previous draw Performed By: #### 8 5499 #### [facility] [address] [place] [address], [place] Creatinine [Mass/Vol] 1.23 mg/dL Normal 0.70-1.30 [facility] Comment on above: Order Comment: No: D o not add to previous draw Performed By: #### 8 5499 #### [facility] [address] [place] [address], [place] eGFR- non- 60 ml/min/1.73sq m Abnormal >60 [facility] Comment on above: Order Comment: No: D o not add to previous draw Performed By: #### 8 5499 #### [facility] [address] [place] [address], [place] GFR/1.73 sq M.predicted among blacks MDRD (S/P/Bld) [Vol rate/Area] mL/min/{1.73_m2} Normal >60 [facility] Comment on above: Order Comment: No: D o not add to previous draw Performed By: #### 8 5499 #### [facility] [address] [place] [address], [place] Glucose [Mass/Vol] 141 mg/dL High 70-100 [facility] Comment on above: Order Comment: No: D o not add to previous draw Performed By: #### 8 5499 #### [facility] [address] [place] [address], [place] Potassium [Moles/Vol] 3.5 mmol/L Normal 3.5-5.1 [facility] Comment on above: Order Comment: No: D o not add to previous draw Performed By: #### 8 5499 #### [facility] [address] [place] [address], [place] Sodium [Moles/Vol] 139 mmol/L Normal 136-145 [facility] Comment on above: Order Comment: No: D o not add to previous draw Performed By: #### 8 5499 #### [facility] [address] [place] [address], [place] Urea nitrogen [Mass/Vol] 18 mg/dL Normal 7-25 [facility] Comment on above: Order Comment: No: D o not add to previous draw Performed By: #### 8 5499 #### [facility] [address] [place] [address], [place] CBC COMPLETE BLOOD COUNTon - Erythrocyte distribution width (RBC) [Ratio] 13.2 % Normal 11.5-15.0 [facility] Comment on above: Order Comment: No: D o not add to previous draw Performed By: #### 1 0070, 91966, 72132, 00309 #### [facility] [address] [place] [address], [place] Hematocrit (Bld) [Volume fraction] 42.7 % Normal 39.0-50.0 [facility] Comment on above: Order Comment: No: D o not add to previous draw Performed By: #### 1 0070, 70294, 82199, 79820 #### [facility] [address] [place] [id number], [facility] Hemoglobin (Bld) [Mass/Vol] 14.5 g/dL Normal 13.0-17.0 [facility] Comment on above: Order Comment: No: D o not add to previous draw Performed By: #### 1 0070, 06161, 09341, 11992 #### [facility] [address] [facility] [place] [address], [facility] MCH (RBC) [Entitic mass] 32.0 pg Normal 27.0-33.0 [facility] Comment on above: Order Comment: No: D o not add to previous draw Performed By: #### 1 0070, 07539, 71015, 19986 #### [facility] [address] [place] [address], [facility] MCHC (RBC) [Mass/Vol] 34.0 g/dL Normal 32.0-35.0 [facility] Comment on above: Order Comment: No: D o not add to previous draw Performed By: #### 1 0070, 17257, 03302, 87090 #### [facility] [address] [place] [id number], [facility] MCV (RBC) [Entitic vol] 94.3 fL Normal 82.0-98.0 [facility] Comment on above: Order Comment: No: D o not add to previous draw Performed By: #### 1 0070, 61455, 74392, 92162 #### [facility] [address] [place] [id number], [facility] Nucleated RBC/100 WBC (Bld) [Ratio] 0 % Normal 0-0 [facility] Comment on above: Order Comment: No: D o not add to previous draw Performed By: #### 1 0070, 29275, 16522, 65224 #### [facility] [address] [place] [address], [facility] PLAT CNT 179 10*3/uL Normal 150-400 [facility] Comment on above: Order Comment: No: D o not add to previous draw Performed By: #### 1 0070, 87564, 68122, 88883 #### [facility] [address] [place] [id number], [facility] RBC (Bld) [#/Vol] 4.53 10*6/uL Normal 4.20-5.70 [facility] Comment on above: Order Comment: No: D o not add to previous draw Performed By: #### 1 0070, 51789, 38722, 94691 #### [facility] [address] [place] [address], [facility] WBC (Bld) [#/Vol] 7.86 10*3/uL Normal 4.00-10.60 [facility] Comment on above: Order Comment: No: D o not add to previous draw Performed By: #### 1 0070, 12612, 32847, 71541 #### [facility] [address] [place] [address], [facility] LIVER BATTERYon 07-26-2021 Albumin [Mass/Vol] 3.2 g/dL Low 3.5-5.7 [facility] Comment on above: Order Comment: No: D o not add to previous draw Performed By: #### 0 0071, 41372 #### [facility] [address] [place] [address], [facility] ALKALINE PHOSPH 114 IU/L High 34-104 [facility] Comment on above: Order Comment: No: D o not add to previous draw Performed By: #### 0 0071, 10749 #### [facility] [address] [place] [address], [facility] ALT [Catalytic activity/Vol] 37 U/L Normal 7-52 [facility] Comment on above: Order Comment: No: D o not add to previous draw Performed By: #### 0 0071, 85580 #### [facility] [address] [place] [address], [facility] AST [Catalytic activity/Vol] 28 U/L Normal 13-39 [facility] Comment on above: Order Comment: No: D o not add to previous draw Performed By: #### 0 0071, 38007 #### [facility] [address] [place] [address], [place] Bilirubin [Mass/Vol] 0.6 mg/dL Normal 0.3-1.0 [facility] Comment on above: Order Comment: No: D o not add to previous draw Performed By: #### 0 0071, 77488 #### [facility] [address] [place] [address], [place] Bilirubin.direct [Mass/Vol] 0.1 mg/dL Normal 0.0-0.2 [facility] Comment on above: Order Comment: No: D o not add to previous draw Performed By: #### 0 0071, 71271 #### [facility] [address] [place] [address], [place] Protein [Mass/Vol] 6.3 g/dL Normal 6.0-8.3 [facility] Comment on above: Order Comment: No: D o not add to previous draw Performed By: #### 0 0071, 49527 #### [facility] [address] [place] [address], [facility] Operative Reporton Operative Report MR#: [id number] I [facility] Pt. Name: Andry Pierre Room #: [id number] Discharge Date: Birthdate: 1960 OPERATIVE REPORT DATE [...] Olivier M.D. Date Trans: 07/26/2021 04:31 P/ [id number] cc: Say Mccormick M.D. [address] [facility] [address] Normal [facility] POC GLUCOSE LABon 07-26-2021 Glucose [Mass/Vol] 155 mg/dL High 70-100 [facility] Comment on above: Performed By: #### 1 0070, 76484, 87374, 82668 #### [facility] [address] [place] [address], [place] Glucose [Mass/Vol] 149 mg/dL High 70-100 [facility] Comment on above: Performed By: #### 8 5499 #### [facility] [address] [place] [address], [place] Glucose [Mass/Vol] 123 mg/dL High 70-100 [facility] Comment on above: Performed By: #### 1 0070, 44589, 37661, 11211 #### [facility] [address] [place] [address], [place] Glucose [Mass/Vol] 126 mg/dL High 70-100 [facility] Comment on above: Performed By: #### 8 5499 #### [facility] [address] [place] [address], [place] PROTHROMBIN TIMEon INR Coag (PPP) [Relative time] 1.20 {INR} High 0.91-1.16 [facility] Comment on above: Order Comment: No: D o not add to previous draw Result Comment: ACCC P RECOMMENDED INR FOR WARFARIN THERAPY ------ ------- CONDITION INR PROPHYLAXIS OF VENOUS THROMBOSIS 2-3 (HIGH-RISK SURGERY) TREATMENT OF VENOUS THROMBOSIS 2-3 TREATMENT OF PULMONARY EMBOLISM 2-3 PREVENTION OF SYSTEMIC EMBOLISM: 2-3 ACUTE MYOCARDIAL INFARCTION TISSUE HEART VALVES VALVULAR HEART DISEASE ATRIAL FIBRILLATION RECURRENT SYSTEMIC EMBOLISM MECHANICAL HEART VALVE 2.5-3.5 FROM: ORAL ANTICOAGULANTS. MECHANISM OF ACTION, CLINICAL EFFECTIVENESS, AND OPTIMAL THERAPEUTIC RANGE. CHEST 1995;108:231S-246S. Performed By: #### 1 0070, 60289, 53668, 82164 #### [facility] [address] [facility]. [address] PT Coag (PPP) [Time] 15.2 s High 12.3-14.8 [facility] Comment on above: Order Comment: No: D o not add to previous draw Result Comment: ALL RESULTS MUST BE INTERPRETED WITH RESPECT TO BLOOD DRAWING ARTIFACT OR DILUTION ERROR OF ANTICOAGULANT AT THE TIME OF SAMPLING. Performed By: #### 1 0070, 69994, 23711, 38494 #### [facility] [address] APTTon 07-25-2021 aPTT Coag (Bld) [Time] 29.3 s Normal 25.0-35.0 [facility] Comment on above: Order Comment: No: D [...] FOR THIS PURPOSE. Performed By: #### 1 0, 45221, 11697, 71920 #### [facility] [address] [place] [address], [facility] aPTT Coag (Bld) [Time] 28.7 s Normal 25.0-35.0 [facility] Comment on above: Order Comment: No: D [...] THIS PURPOSE. Performed By: #### 1 0070, 86707, 31028, 38385 #### [facility] [address] BASIC METABOLIC PANELon 10-2 0-2020 Calcium [Mass/Vol] 8.3 mg/dL Low 8.6-10.3 [facility] Comment on above: Order Comment: No: D o not add to previous draw Performed By: #### 1 0070, 36871, 73726, 93092 #### [facility] [address] [facility] [place] [address], [facility] Chloride [Moles/Vol] 111 mmol/L High 98-107 [facility] Comment on above: Order Comment: No: D o not add to previous draw Performed By: #### 1 0070, 88332, 54293, 87419 #### [facility] [address] [facility] [place] [address], [facility] CO2 [Moles/Vol] 26 mmol/L Normal 21-31 [facility] Comment on above: Order Comment: No: D o not add to previous draw Performed By: #### 1 0070, 99794, 10334, 56518 #### [facility] [address] [place] [id number], [facility] Creatinine [Mass/Vol] 1.25 mg/dL Normal 0.70-1.30 [facility] Comment on above: Order Comment: No: D o not add to previous draw Performed By: #### 1 0070, 45129, 87417, 79589 #### [facility] [address] [place] [address], [place] eGFR- non- 59 ml/min/1.73sq m Abnormal >60 [facility] Comment on above: Order Comment: No: D o not add to previous draw Performed By: #### 1 0070, 23761, 36034, 46126 #### [facility] [address] [place] [address], [facility] GFR/1.73 sq M.predicted among blacks MDRD (S/P/Bld) [Vol rate/Area] mL/min/{1.73_m2} Normal >60 [facility] Comment on above: Order Comment: No: D o not add to previous draw Performed By: #### 1 0070, 57107, 21698, 13379 #### [facility] [address] [place] [address], [place] Glucose [Mass/Vol] 107 mg/dL High 70-100 [facility] Comment on above: Order Comment: No: D o not add to previous draw Performed By: #### 1 0070, 68211, 45785, 58181 #### [facility] [address] [place] [address], [place] Potassium [Moles/Vol] 3.6 mmol/L Normal 3.5-5.1 [facility] Comment on above: Order Comment: No: D o not add to previous draw Performed By: #### 1 0070, 36438, 57629, 43386 #### [facility] [address] [place] [address], [place] Sodium [Moles/Vol] 143 mmol/L Normal 136-145 [facility] Comment on above: Order Comment: No: D o not add to previous draw Performed By: #### 1 0070, 04055, 22628, 67181 #### [facility] [address] [place] [address], [facility] Urea nitrogen [Mass/Vol] 22 mg/dL Normal 7-25 [facility] Comment on above: Order Comment: No: D o not add to previous draw Performed By: #### 1 0070, 40748, 12564, 37975 #### [facility] [address] [place] [address], [facility] CBC COMPLETE BLOOD COUNTon Erythrocyte distribution width (RBC) [Ratio] 13.3 % Normal 11.5-15.0 [facility] Comment on above: Order Comment: No: D o not add to previous draw Performed By: #### 1 0070, 97365, 96017, 88221 #### [facility] [address] [place] [address], [facility] Hematocrit (Bld) [Volume fraction] 46.9 % Normal 39.0-50.0 [facility] Comment on above: Order Comment: No: D o not add to previous draw Performed By: #### 1 0070, 30030, 52244, 10243 #### [facility] [address] [place] [address], [facility] Hemoglobin (Bld) [Mass/Vol] 15.4 g/dL Normal 13.0-17.0 [facility] Comment on above: Order Comment: No: D o not add to previous draw Performed By: #### 1 0070, 87223, 29127, 07084 #### [facility] [address] [place] [address], [place] MCH (RBC) [Entitic mass] 31.3 pg Normal 27.0-33.0 [facility] Comment on above: Order Comment: No: D o not add to previous draw Performed By: #### 1 0070, 11607, 89292, 89573 #### [facility] [address] [place] [address], [place] MCHC (RBC) [Mass/Vol] 32.8 g/dL Normal 32.0-35.0 [facility] Comment on above: Order Comment: No: D o not add to previous draw Performed By: #### 1 0070, 11342, 59759, 19987 #### [facility] [address] [place] [address], [facility] MCV (RBC) [Entitic vol] 95.3 fL Normal 82.0-98.0 [facility] Comment on above: Order Comment: No: D o not add to previous draw Performed By: #### 1 0070, 76556, 81250, 99248 #### [facility] [address] [place] [id number], [facility] Nucleated RBC/100 WBC (Bld) [Ratio] 0 % Normal 0-0 [facility] Comment on above: Order Comment: No: D o not add to previous draw Performed By: #### 1 0070, 91117, 32173, 95367 #### [facility] [address] [place] [id number], [place] PLAT CNT 183 10*3/uL Normal 150-400 [facility] Comment on above: Order Comment: No: D o not add to previous draw Performed By: #### 1 0070, 05713, 68612, 00120 #### [facility] [address] [place] [address], [facility] RBC (Bld) [#/Vol] 4.92 10*6/uL Normal 4.20-5.70 [facility] Comment on above: Order Comment: No: D o not add to previous draw Performed By: #### 1 0070, 79784, 92944, 04302 #### [facility] [address] [place] [address], [place] WBC (Bld) [#/Vol] 9.70 10*3/uL Normal 4.00-10.60 [facility] Comment on above: Order Comment: No: D o not add to previous draw Performed By: #### 1 0070, 16641, 54608, 70137 #### [facility] [address] [place] [address], [place] LIPASE BLOODon 07-25-2021 LIPASE 34 Units/L Normal 11-82 [facility] Comment on above: Order Comment: No: D o not add to previous draw Performed By: #### 1 0070, 34652, 64228, 18598 #### [facility] [address] [place] [address], [place] LIVER BATTERYon 07-25-2021 Albumin [Mass/Vol] 3.0 g/dL Low 3.5-5.7 [facility] Comment on above: Order Comment: No: D o not add to previous draw Performed By: #### 1 0070, 57853, 56266, 59034 #### [facility] [address] [place] [address], [place] ALKALINE PHOSPH 113 IU/L High 34-104 [facility] Comment on above: Order Comment: No: D o not add to previous draw Performed By: #### 1 0070, 27942, 94936, 15788 #### [facility] [address] [place] [address], [place] ALT [Catalytic activity/Vol] 37 U/L Normal 7-52 [facility] Comment on above: Order Comment: No: D o not add to previous draw Performed By: #### 1 0070, 67880, 54492, 12467 #### [facility] [address] [place] [address], [place] AST [Catalytic activity/Vol] 36 U/L Normal 13-39 [facility] Comment on above: Order Comment: No: D o not add to previous draw Performed By: #### 1 0070, 44429, 76830, 73595 #### [facility] [address] [place] [address], [place] Bilirubin [Mass/Vol] 0.6 mg/dL Normal 0.3-1.0 [facility] Comment on above: Order Comment: No: D o not add to previous draw Performed By: #### 1 0070, 21310, 84452, 78060 #### [facility] [address] [place] [address], [place] Bilirubin.direct [Mass/Vol] 0.1 mg/dL Normal 0.0-0.2 [facility] Comment on above: Order Comment: No: D o not add to previous draw Performed By: #### 1 0070, 50417, 60012, 50630 #### [facility] [address] [place] [address], [place] Protein [Mass/Vol] 5.3 g/dL Low 6.0-8.3 [facility] Comment on above: Order Comment: No: D o not add to previous draw Performed By: #### 1 0070, 15553, 03272, 85089 #### [facility] [address] [place] [address], [place] POC GLUCOSE LABon 07-25-2021 Glucose [Mass/Vol] 388 mg/dL High 70-100 [facility] Comment on above: Performed By: #### 1 0070, 52061, 89100, 95162 #### [facility] [address] [place] [address], [place] Glucose [Mass/Vol] 173 mg/dL High 70-100 [facility] Comment on above: Performed By: #### 8 5499 #### [facility] [address] [place] [address], [place] Glucose [Mass/Vol] 178 mg/dL High 70-100 [facility] Comment on above: Performed By: #### 8 5499 #### [facility] [address] [place] [address], [place] Glucose [Mass/Vol] 106 mg/dL High 70-100 [facility] Comment on above: Performed By: #### 1 0070, 73040, 57161, 86989 #### [facility] [address] PROTHROMBIN TIMEon 1 INR Coag (PPP) [Relative time] 1.30 {INR} High 0.91-1.16 [facility] Comment on above: Order Comment: No: D o not add to previous draw Result Comment: ACCC P RECOMMENDED INR FOR WARFARIN THERAPY ------ ------- CONDITION INR PROPHYLAXIS OF VENOUS THROMBOSIS 2-3 (HIGH-RISK SURGERY) TREATMENT OF VENOUS THROMBOSIS 2-3 TREATMENT OF PULMONARY EMBOLISM 2-3 PREVENTION OF SYSTEMIC EMBOLISM: 2-3 ACUTE MYOCARDIAL INFARCTION TISSUE HEART VALVES VALVULAR HEART DISEASE ATRIAL FIBRILLATION RECURRENT SYSTEMIC EMBOLISM MECHANICAL HEART VALVE 2.5-3.5 FROM: ORAL ANTICOAGULANTS. MECHANISM OF ACTION, CLINICAL EFFECTIVENESS, AND OPTIMAL THERAPEUTIC RANGE. CHEST 1995;108:231S-246S. Performed By: #### 1 0070, 28283, 16067, 37481 #### [facility] [address] [place] [address], [facility] PT Coag (PPP) [Time] 16.2 s High 12.3-14.8 [facility] Comment on above: Order Comment: No: D o not add to previous draw Result Comment: ALL RESULTS MUST BE INTERPRETED WITH RESPECT TO BLOOD DRAWING ARTIFACT OR DILUTION ERROR OF ANTICOAGULANT AT THE TIME OF SAMPLING. Performed By: #### 1 0070, 92105, 65139, 26740 #### [facility] [address] UFH HEPARIN ASSAYon 07-25- 21 UNFRACTIONATED HEPARIN <0.10 Critically low 0.30-0.70 [facility] Comment on above: Result Comment: Resu lts called. [place]ur[place] [address], 25-Jul-2021. Patient is not on anything that would raise the uFH value per nurse Caitlin. Rivaroxaban and Apixaban will interfere with the anti Xa assay used to monitor UFH and LMWH. Performed By: #### 1 0070, 48416, 44317, 06797 #### [facility] [address] [place] [id number], [facility] UNFRACTIONATED HEPARIN <0.10 Critically low 0.30-0.70 [facility] Comment on above: Result Comment: Resu lt checked and called. Accurately read back by Caitlin Koch RN at 1024 Rivaroxaban and Apixaban will interfere with the anti Xa assay used to monitor UFH and LMWH. Performed By: #### 1 0070, 15522, 90072, 22762 #### [facility] [address] [place] [address], [place] BASIC METABOLIC PANELon 10-1 Calcium [Mass/Vol] 8.7 mg/dL Normal 8.6-10.3 [facility] Comment on above: Order Comment: No: D o not add to previous draw Performed By: #### 0 0071, 33846 #### [facility] [address] [place] [address], [place] Chloride [Moles/Vol] 105 mmol/L Normal 98-107 [facility] Comment on above: Order Comment: No: D o not add to previous draw Performed By: #### 0 0071, 39022 #### [facility] [address] [place] [address], [place] CO2 [Moles/Vol] 30 mmol/L Normal 21-31 [facility] Comment on above: Order Comment: No: D o not add to previous draw Performed By: #### 0 0071, 78680 #### [facility] [address] [place] [address], [place] Creatinine [Mass/Vol] 1.52 mg/dL High 0.70-1.30 [facility] Comment on above: Order Comment: No: D o not add to previous draw Performed By: #### 0 0071, 08463 #### [facility] [address] [place] [address], [place] eGFR- 57 ml/min/1.73sq m Abnormal >60 [facility] Comment on above: Order Comment: No: D o not add to previous draw Performed By: #### 0 0071, 55876 #### [facility] [address] [place] [address], [place] eGFR- non- 47 ml/min/1.73sq m Abnormal >60 [facility] Comment on above: Order Comment: No: D o not add to previous draw Performed By: #### 0 0071, 05362 #### [facility] [address] [place] [address], [place] Glucose [Mass/Vol] 331 mg/dL High 70-100 [facility] Comment on above: Order Comment: No: D o not add to previous draw Performed By: #### 0 0071, 39197 #### [facility] [address] [place] [address], [place] Potassium [Moles/Vol] 4.3 mmol/L Normal 3.5-5.1 [facility] Comment on above: Order Comment: No: D o not add to previous draw Performed By: #### 0 0071, 00200 #### [facility] [address] [place] [address], [place] Sodium [Moles/Vol] 139 mmol/L Normal 136-145 [facility] Comment on above: Order Comment: No: D o not add to previous draw Performed By: #### 0 0071, 64279 #### [facility] [address] [place] [address], [place] Urea nitrogen [Mass/Vol] 26 mg/dL High 7-25 [facility] Comment on above: Order Comment: No: D o not add to previous draw Performed By: #### 0 0071, 99681 #### [facility] [address] [facility] [address] CBC COMPLETE BLOOD COUNTon Erythrocyte distribution width (RBC) [Ratio] 13.2 % Normal 11.5-15.0 [facility] Comment on above: Order Comment: No: D o not add to previous draw Performed By: #### 1 0070, 62602, 12520, 56534 #### [facility] [address] Hematocrit (Bld) [Volume fraction] 42.9 % Normal 39.0-50.0 [facility] Comment on above: Order Comment: No: D o not add to previous draw Performed By: #### 1 0070, 98092, 07736, 84523 #### [facility] [address] [place] [address], [facility] Hemoglobin (Bld) [Mass/Vol] 13.7 g/dL Normal 13.0-17.0 [facility] Comment on above: Order Comment: No: D o not add to previous draw Performed By: #### 1 0070, 74836, 14249, 68302 #### [facility] [address] [place] [address], [facility] MCH (RBC) [Entitic mass] 30.9 pg Normal 27.0-33.0 [facility] Comment on above: Order Comment: No: D o not add to previous draw Performed By: #### 1 0070, 53565, 57686, 99520 #### [facility] [address] [place] [id number], [facility] MCHC (RBC) [Mass/Vol] 31.9 g/dL Low 32.0-35.0 [facility] Comment on above: Order Comment: No: D o not add to previous draw Performed By: #### 1 0070, 68110, 08131, 84461 #### [facility] [address] [place] [address], [facility] MCV (RBC) [Entitic vol] 96.6 fL Normal 82.0-98.0 [facility] Comment on above: Order Comment: No: D o not add to previous draw Performed By: #### 1 0070, 39797, 91165, 68149 #### [facility] [address] [place] [address], [facility] Nucleated RBC/100 WBC (Bld) [Ratio] 0 % Normal 0-0 [facility] Comment on above: Order Comment: No: D o not add to previous draw Performed By: #### 1 0070, 24696, 16171, 44013 #### [facility] [address] [place] [address], [facility] PLAT CNT 184 10*3/uL Normal 150-400 [facility] Comment on above: Order Comment: No: D o not add to previous draw Performed By: #### 1 0070, 06931, 48830, 27634 #### [facility] [address] [facility] [place] [address], [facility] RBC (Bld) [#/Vol] 4.44 10*6/uL Normal 4.20-5.70 [facility] Comment on above: Order Comment: No: D o not add to previous draw Performed By: #### 1 0070, 19859, 41500, 64176 #### [facility] [address] [place] [address], [place] WBC (Bld) [#/Vol] 8.42 10*3/uL Normal 4.00-10.60 [facility] Comment on above: Order Comment: No: D o not add to previous draw Performed By: #### 1 0070, 45811, 79825, 89158 #### [facility] [address] [place] [id number], [facility] ERCPon 07-24-2021 ERCP [facility] Department of Radiology [address] [place] [id number] Patient Name: ANDRY PIERRE : 1960 Sex: M Age: Race: White Pt. Location: [id number] Patient Status: I Ordered Date: 07/24/2021 7:00:00 [...] details. Electronically signed: Khoa Chahal. Transcribed by: [email or web address], User Resident: Electronically Signed by: KHOA CHAHAL @ 07/25/2021 08:48 AM Normal [facility] Comment on above: Order Comment: ERCP Endoscopy Reporton Endoscopy Report MR#: [id number] [facility] Pt. Name: Andry Pierre Surgery Date: 07/24/2021 Room #: [id number] Date of : 1960 PROCEDURE NOTE ATTENDING: Amy Remy M.D. [employer]LECT[employer]IC [employer]OL ASSEMBLER: Cyrus Decker MD PROCEDURE: ERCP with biliary [...] Decker MD Date Trans: 07/24/2021 09:24 P/michaela DN_JN:[id number] cc: Say Mccormick M.D. [address] [facility] [id number] Normal [facility] LIVER BATTERYon 07-24-2021 Albumin [Mass/Vol] 3.3 g/dL Low 3.5-5.7 [facility] Comment on above: Order Comment: No: D o not add to previous draw Performed By: #### 0 0071, 83556 #### [facility] [address] [place] [address], [facility] ALKALINE PHOSPH 106 IU/L High 34-104 [facility] Comment on above: Order Comment: No: D o not add to previous draw Performed By: #### 0 0071, 28238 #### [facility] [address] [place] [address], [facility] ALT [Catalytic activity/Vol] 26 U/L Normal 7-52 [facility] Comment on above: Order Comment: No: D o not add to previous draw Performed By: #### 0 0071, 82999 #### [facility] [address] [place] [address], [place] AST [Catalytic activity/Vol] 17 U/L Normal 13-39 [facility] Comment on above: Order Comment: No: D o not add to previous draw Performed By: #### 0 0071, 70609 #### [facility] [address] [place] [address], [place] Bilirubin [Mass/Vol] 0.3 mg/dL Normal 0.3-1.0 [facility] Comment on above: Order Comment: No: D o not add to previous draw Performed By: #### 0 0071, 72937 #### [facility] [address] [place] [address], [place] Bilirubin.direct [Mass/Vol] 0.0 mg/dL Normal 0.0-0.2 [facility] Comment on above: Order Comment: No: D o not add to previous draw Performed By: #### 0 0071, 13029 #### [facility] [address] [place] [address], [place] Protein [Mass/Vol] 6.1 g/dL Normal 6.0-8.3 [facility] Comment on above: Order Comment: No: D o not add to previous draw Performed By: #### 0 0071, 93052 #### [facility] [address] [place] [address], [place] POC GLUCOSE LABon 07-24-2021 Glucose [Mass/Vol] 89 mg/dL Normal 70-100 [facility] Comment on above: Performed By: #### 8 5499 #### [facility] [address] [place] [address], [place] Glucose [Mass/Vol] 89 mg/dL Normal 70-100 [facility] Comment on above: Performed By: #### 1 0070, 14607, 08299, 84857 #### [facility] [address] [place] [address], [facility] Glucose [Mass/Vol] 166 mg/dL High 70-100 [facility] Comment on above: Performed By: #### 8 5499 #### [facility] [address] [place] [address], [place] Glucose [Mass/Vol] 391 mg/dL High 70-100 [facility] Comment on above: Performed By: #### 8 5499 #### [facility] [address] [place] [address], [facility] POC SARS COV2 ANTIGEN NEGATI VEon 07-24-2021 POC SARS COV2 ANTIGEN NEG Negative Normal NEGATIVE [facility] Comment on above: Result Comment: Nega tive [...] signs and symptoms consistent with COVID-19. The [employer] COVID-19 Ag Card is a lateral flow [...] Accreditation. Performed By: #### 8 5499 #### [facility] [address] [place] [address], [facility] PROTHROMBIN TIMEon 1 INR Coag (PPP) [Relative time] 1.53 {INR} High 0.91-1.16 [facility] Comment on above: Order Comment: No: D o not add to previous draw Result Comment: ACCC P RECOMMENDED INR FOR WARFARIN THERAPY ------ ------- CONDITION INR PROPHYLAXIS OF VENOUS THROMBOSIS 2-3 (HIGH-RISK SURGERY) TREATMENT OF VENOUS THROMBOSIS 2-3 TREATMENT OF PULMONARY EMBOLISM 2-3 PREVENTION OF SYSTEMIC EMBOLISM: 2-3 ACUTE MYOCARDIAL INFARCTION TISSUE HEART VALVES VALVULAR HEART DISEASE ATRIAL FIBRILLATION RECURRENT SYSTEMIC EMBOLISM MECHANICAL HEART VALVE 2.5-3.5 FROM: ORAL ANTICOAGULANTS. MECHANISM OF ACTION, CLINICAL EFFECTIVENESS, AND OPTIMAL THERAPEUTIC RANGE. CHEST 1995;108:231S-246S. Performed By: #### 1 0070, 50119, 99891, 45733 #### [facility] [address] [place] [address], [facility] PT Coag (PPP) [Time] 18.3 s High 12.3-14.8 [facility] Comment on above: Order Comment: No: D o not add to previous draw Result Comment: ALL RESULTS MUST BE INTERPRETED WITH RESPECT TO BLOOD DRAWING ARTIFACT OR DILUTION ERROR OF ANTICOAGULANT AT THE TIME OF SAMPLING. Performed By: #### 1 0070, 16061, 85969, 07940 #### [facility] [address] [place] [address], [facility] COMP METABOLIC PANELon 07-23 Albumin [Mass/Vol] 3.5 g/dL Normal 3.5-5.7 [facility] Comment on above: Order Comment: No: D o not add to previous draw Performed By: #### 8 5499 #### [facility] [address] [place] [address], [place] ALKALINE PHOSPH 122 IU/L High 34-104 [facility] [facility] Comment on above: Order Comment: No: D o not add to previous draw Performed By: #### 8 5499 #### [facility] [address] [place] [address], [place] ALT [Catalytic activity/Vol] 32 U/L Normal 7-52 [facility] Comment on above: Order Comment: No: D o not add to previous draw Performed By: #### 8 5499 #### [facility] [address] [place] [address], [place] AST [Catalytic activity/Vol] 22 U/L Normal 13-39 [facility] Comment on above: Order Comment: No: D o not add to previous draw Performed By: #### 8 5499 #### [facility] [address] [place] [address], [place] Bilirubin [Mass/Vol] 0.4 mg/dL Normal 0.3-1.0 [facility] Comment on above: Order Comment: No: D o not add to previous draw Performed By: #### 8 5499 #### [facility] [address] [place] [address], [place] Calcium [Mass/Vol] 8.5 mg/dL Low 8.6-10.3 [facility] Comment on above: Order Comment: No: D o not add to previous draw Performed By: #### 8 5499 #### [facility] [address] [place] [address], [place] Chloride [Moles/Vol] 110 mmol/L High 98-107 [facility] Comment on above: Order Comment: No: D o not add to previous draw Performed By: #### 8 5499 #### [facility] [address] [place] [address], [place] CO2 [Moles/Vol] 23 mmol/L Normal 21-31 [facility] Comment on above: Order Comment: No: D o not add to previous draw Performed By: #### 8 5499 #### [facility] [address] [place] [address], [place] Creatinine [Mass/Vol] 1.33 mg/dL High 0.70-1.30 [facility] Comment on above: Order Comment: No: D o not add to previous draw Performed By: #### 8 5499 #### [facility] [address] [place] [address], [place] eGFR- non- 55 ml/min/1.73sq m Abnormal >60 [facility] Comment on above: Order Comment: No: D o not add to previous draw Performed By: #### 8 5499 #### [facility] [address] [place] [address], [place] GFR/1.73 sq M.predicted among blacks MDRD (S/P/Bld) [Vol rate/Area] mL/min/{1.73_m2} Normal >60 [facility] Comment on above: Order Comment: No: D o not add to previous draw Performed By: #### 8 5499 #### [facility] [address] [place] [address], [place] Glucose [Mass/Vol] 198 mg/dL High 70-100 [facility] Comment on above: Order Comment: No: D o not add to previous draw Performed By: #### 8 5499 #### [facility] [address] [place] [address], [place] Potassium [Moles/Vol] 3.5 mmol/L Normal 3.5-5.1 [facility] Comment on above: Order Comment: No: D o not add to previous draw Performed By: #### 8 5499 #### [facility] [address] [place] [address], [place] Protein [Mass/Vol] 6.3 g/dL Normal 6.0-8.3 [facility] Comment on above: Order Comment: No: D o not add to previous draw Performed By: #### 8 5499 #### [facility] [address] [place] [address], [place] Sodium [Moles/Vol] 142 mmol/L Normal 136-145 [facility] Comment on above: Order Comment: No: D o not add to previous draw Performed By: #### 8 5499 #### [facility] [address] [place] [address], [place] Urea nitrogen [Mass/Vol] 25 mg/dL Normal 7-25 [facility] Comment on above: Order Comment: No: D o not add to previous draw Performed By: #### 8 5499 #### [facility] [address] [place] [address], [place] POC GLUCOSE LABon 07-23-2021 Glucose [Mass/Vol] 325 mg/dL High 70-100 [facility] Comment on above: Performed By: #### 8 5499 #### [facility] [address] [place] [address], [place] Glucose [Mass/Vol] 290 mg/dL High 70-100 [facility] Comment on above: Performed By: #### 1 0070, 44843, 68623, 03171 #### [facility] [address] [place] [address], [place] Glucose [Mass/Vol] 253 mg/dL High 70-100 [facility] Comment on above: Performed By: #### 1 0070, 05014, 22072, 04101 #### [facility] [address] [place] [address], [place] Glucose [Mass/Vol] 211 mg/dL High 70-100 [facility] Comment on above: Performed By: #### 8 5499 #### [facility] [address] [place] [address], [place] PROTHROMBIN TIMEon INR Coag (PPP) [Relative time] 1.92 {INR} High 0.91-1.16 [facility] Comment on above: Order Comment: Dirk chu Result Comment: ACCC P RECOMMENDED INR FOR WARFARIN THERAPY ------ ------- CONDITION INR PROPHYLAXIS OF VENOUS THROMBOSIS 2-3 (HIGH-RISK SURGERY) TREATMENT OF VENOUS THROMBOSIS 2-3 TREATMENT OF PULMONARY EMBOLISM 2-3 PREVENTION OF SYSTEMIC EMBOLISM: 2-3 ACUTE MYOCARDIAL INFARCTION TISSUE HEART VALVES VALVULAR HEART DISEASE ATRIAL FIBRILLATION RECURRENT SYSTEMIC EMBOLISM MECHANICAL HEART VALVE 2.5-3.5 FROM: ORAL ANTICOAGULANTS. MECHANISM OF ACTION, CLINICAL EFFECTIVENESS, AND OPTIMAL THERAPEUTIC RANGE. CHEST 1995;108:231S-246S. Performed By: #### 8 5499 #### [facility] [address] [address], [facility] PT Coag (PPP) [Time] 21.9 s High 12.3-14.8 [facility] Comment on above: Order Comment: Dirk chu Result Comment: ALL RESULTS MUST BE INTERPRETED WITH RESPECT TO BLOOD DRAWING ARTIFACT OR DILUTION ERROR OF ANTICOAGULANT AT THE TIME OF SAMPLING. Performed By: #### 8 5499 #### [facility] [address] [place] [address], [facility] APTTon 07-22-2021 aPTT Coag (Bld) [Time] 37.1 s High 25.0-35.0 [facility] Comment on above: Order Comment: No: D [...] THIS PURPOSE. Performed By: #### 1 0070, 36370, 14087, 33141 #### [facility] [address] [place] [address], [facility] BASIC METABOLIC PANELon 10- Calcium [Mass/Vol] 8.3 mg/dL Low 8.6-10.3 [facility] Comment on above: Order Comment: No: D o not add to previous draw Performed By: #### 8 5499 #### [facility] [address] [place] [address], [facility] Chloride [Moles/Vol] 109 mmol/L High 98-107 [facility] Comment on above: Order Comment: No: D o not add to previous draw Performed By: #### 8 5499 #### [facility] [address] [place] [id number], [facility] CO2 [Moles/Vol] 28 mmol/L Normal 21-31 [facility] Comment on above: Order Comment: No: D o not add to previous draw Performed By: #### 8 5499 #### [facility] [address] [place] [id number], [facility] Creatinine [Mass/Vol] 1.48 mg/dL High 0.70-1.30 [facility] Comment on above: Order Comment: No: D o not add to previous draw Performed By: #### 8 5499 #### [facility] [address] [place] [address], [facility] eGFR- 59 ml/min/1.73sq m Abnormal >60 [facility] Comment on above: Order Comment: No: D o not add to previous draw Performed By: #### 8 5499 #### [facility] [address] [place] [id number], [facility] eGFR- non- 48 ml/min/1.73sq m Abnormal >60 [facility] Comment on above: Order Comment: No: D o not add to previous draw Performed By: #### 8 5499 #### [facility] [address] [place] [address], [facility] Glucose [Mass/Vol] 216 mg/dL High 70-100 [facility] Comment on above: Order Comment: No: D o not add to previous draw Performed By: #### 8 5499 #### [facility] [address] [place] [address], [place] Potassium [Moles/Vol] 4.6 mmol/L Normal 3.5-5.1 [facility] Comment on above: Order Comment: No: D o not add to previous draw Performed By: #### 8 5499 #### [facility] [address] [place] [address], [place] Sodium [Moles/Vol] 141 mmol/L Normal 136-145 [facility] Comment on above: Order Comment: No: D o not add to previous draw Performed By: #### 8 5499 #### [facility] [address] [place] [address], [facility] Urea nitrogen [Mass/Vol] 26 mg/dL High 7-25 [facility] Comment on above: Order Comment: No: D o not add to previous draw Performed By: #### 8 5499 #### [facility] [address] [place] [address], [facility] CBC COMPLETE BLOOD COUNTon Erythrocyte distribution width (RBC) [Ratio] 13.2 % Normal 11.5-15.0 [facility] Comment on above: Order Comment: No: D o not add to previous draw Performed By: #### 8 5499 #### [facility] [address] [place] [address], [place] Hematocrit (Bld) [Volume fraction] 45.8 % Normal 39.0-50.0 [facility] Comment on above: Order Comment: No: D o not add to previous draw Performed By: #### 8 5499 #### [facility] [address] [place] [address], [facility] Hemoglobin (Bld) [Mass/Vol] 14.8 g/dL Normal 13.0-17.0 [facility] Comment on above: Order Comment: No: D o not add to previous draw Performed By: #### 8 5499 #### [facility] [address] [facility] [place] [address], [facility] MCH (RBC) [Entitic mass] 31.0 pg Normal 27.0-33.0 [facility] Comment on above: Order Comment: No: D o not add to previous draw Performed By: #### 8 5499 #### [facility] [address] [facility] MCHC (RBC) [Mass/Vol] 32.3 g/dL Normal 32.0-35.0 [facility] Comment on above: Order Comment: No: D o not add to previous draw Performed By: #### 8 5499 #### [facility] [address] [facility] [place] [address], [facility] MCV (RBC) [Entitic vol] 95.8 fL Normal 82.0-98.0 [facility] Comment on above: Order Comment: No: D o not add to previous draw Performed By: #### 8 5499 #### [facility] [address] [facility]. [address] Nucleated RBC/100 WBC (Bld) [Ratio] 0 % Normal 0-0 [facility] Comment on above: Order Comment: No: D o not add to previous draw Performed By: #### 8 5499 #### [facility] [address] [facility] [address], [facility] PLAT CNT 209 10*3/uL Normal 150-400 [facility] Comment on above: Order Comment: No: D o not add to previous draw Performed By: #### 8 5499 #### [facility] [address] [place] [address], [place] RBC (Bld) [#/Vol] 4.78 10*6/uL Normal 4.20-5.70 [facility] Comment on above: Order Comment: No: D o not add to previous draw Performed By: #### 8 5499 #### [facility] [address] [place] [address], [place] WBC (Bld) [#/Vol] 8.89 10*3/uL Normal 4.00-10.60 [facility] Comment on above: Order Comment: No: D o not add to previous draw Performed By: #### 8 5499 #### [facility] [address] [place] [address], [place] LIVER BATTERYon 07-22-2021 Albumin [Mass/Vol] 3.2 g/dL Low 3.5-5.7 [facility] Comment on above: Performed By: #### 8 5499 #### [facility] [address] [place] [address], [place] ALKALINE PHOSPH 111 IU/L High 34-104 [facility] Comment on above: Performed By: #### 8 5499 #### [facility] [address] [place] [address], [place] ALT [Catalytic activity/Vol] 23 U/L Normal 7-52 [facility] Comment on above: Performed By: #### 8 5499 #### [facility] [address] [place] [address], [place] AST [Catalytic activity/Vol] 17 U/L Normal 13-39 [facility] Comment on above: Performed By: #### 8 5499 #### [facility] [address] [place] [address], [place] Bilirubin [Mass/Vol] 0.3 mg/dL Normal 0.3-1.0 [facility] Comment on above: Performed By: #### 8 5499 #### [facility] [address] [place] [address], [place] Bilirubin.direct [Mass/Vol] 0.0 mg/dL Normal 0.0-0.2 [facility] Comment on above: Performed By: #### 8 5499 #### [facility] [address] [place] [address], [place] Protein [Mass/Vol] 5.5 g/dL Low 6.0-8.3 [facility] Comment on above: Performed By: #### 8 5499 #### [facility] [address] [place] [address], [place] MAGNESIUM BLOODon 07-22-2021 Magnesium [Mass/Vol] 2.0 mg/dL Normal 1.9-2.7 [facility] Comment on above: Order Comment: No: D o not add to previous draw Performed By: #### 8 5499 #### [facility] [address] [place] [address], [place] PHOSPHORUS BLOODon Phosphate [Mass/Vol] 3.0 mg/dL Normal 2.5-5.0 [facility] Comment on above: Order Comment: No: D o not add to previous draw Performed By: #### 8 5499 #### [facility] [address] [place] [address], [place] POC GLUCOSE LABon 07-22-2021 Glucose [Mass/Vol] 223 mg/dL High 70-100 [facility] Comment on above: Performed By: #### 1 0070, 18769, 57447, 43264 #### [facility] [address] [place] [address], [place] Glucose [Mass/Vol] 222 mg/dL High 70-100 [facility] Comment on above: Performed By: #### 8 5499 #### [facility] [address] Glucose [Mass/Vol] 245 mg/dL High 70-100 [facility] Comment on above: Performed By: #### 8 5499 #### [facility] [address] [facility] [place] [address], [facility] Glucose [Mass/Vol] 202 mg/dL High 70-100 [facility] Comment on above: Performed By: #### 1 0070, 83297, 55116, 80869 #### [facility] [address] [facility] PROTHROMBIN TIMEon 1 INR Coag (PPP) [Relative time] 2.27 {INR} High 0.91-1.16 [facility] Comment on above: Order Comment: No: D o not add to previous draw Result Comment: ACCC P RECOMMENDED INR FOR WARFARIN THERAPY ------ ------- CONDITION INR PROPHYLAXIS OF VENOUS THROMBOSIS 2-3 (HIGH-RISK SURGERY) TREATMENT OF VENOUS THROMBOSIS 2-3 TREATMENT OF PULMONARY EMBOLISM 2-3 PREVENTION OF SYSTEMIC EMBOLISM: 2-3 ACUTE MYOCARDIAL INFARCTION TISSUE HEART VALVES VALVULAR HEART DISEASE ATRIAL FIBRILLATION RECURRENT SYSTEMIC EMBOLISM MECHANICAL HEART VALVE 2.5-3.5 FROM: ORAL ANTICOAGULANTS. MECHANISM OF ACTION, CLINICAL EFFECTIVENESS, AND OPTIMAL THERAPEUTIC RANGE. CHEST 1995;108:231S-246S. Performed By: #### 1 0, 31518, 53158, 30835 #### [facility] [address] [facility] [place] [address], [facility] PT Coag (PPP) [Time] 24.9 s High 12.3-14.8 [facility] Comment on above: Order Comment: No: D o not add to previous draw Result Comment: ALL RESULTS MUST BE INTERPRETED WITH RESPECT TO BLOOD DRAWING ARTIFACT OR DILUTION ERROR OF ANTICOAGULANT AT THE TIME OF SAMPLING. Performed By: #### 1 0070, 62431, 81463, 78864 #### [facility] [address] [place] [address], [facility] Basic Metabolic Panelon 10- Calcium [Mass/Vol] 9.4 mg/dL Normal 8.2-10.2 [facility] Comment on above: Performed By: #### H EPATIC, CBC, LIPASE, BMP #### [facility] [address] Chloride [Moles/Vol] 103 mmol/L Normal 95-114 [facility] Comment on above: Performed By: #### H EPATIC, CBC, LIPASE, BMP #### [facility] [address] CO2 [Moles/Vol] 26.9 mmol/L Normal 22.0-30.0 [facility] Comment on above: Performed By: #### H EPATIC, CBC, LIPASE, BMP #### [facility] [address] [place] [address] Creatinine [Mass/Vol] 1.66 mg/dL High 0.64-1.27 [facility] Comment on above: Performed By: #### H EPATIC, CBC, LIPASE, BMP #### [facility] [address] [place] [address] [place] Creatinine Clr Calc Pharmacy 68.90 [facility] Comment on above: Performed By: #### H EPATIC, CBC, LIPASE, BMP #### [facility] [address] [place] [address] Estimated GFR ( Beata 51 [facility] Comment on above: Result Comment: GFR estimated reference range: According to KDOQI guidelines, <60 ml/min/1.73m2 is sufficient to diagnose a patient with chronic kidney disease. Performed By: #### H EPATIC, CBC, LIPASE, BMP #### [facility] [address] [place] [address] Estimated GFR (Non- Am 42 Normal [facility] Comment on above: Performed By: #### H EPATIC, CBC, LIPASE, BMP #### [facility] [address] [place] [address] Glucose [Mass/Vol] 442 mg/dL High 70-100 [facility] Comment on above: Result Comment: [place] Glucose Reference Range is dependent on time and content of last meal. Glucose of more than 200 mg/dL in a nonstressed, ambulatory subject supports the diagnosis of Diabetes Mellitus. ADA recommended reference range Performed By: #### H EPATIC, CBC, LIPASE, BMP #### [facility] [address] [place] [address] Potassium [Moles/Vol] 4.1 mmol/L Normal 3.5-5.1 [facility] Comment on above: Performed By: #### H EPATIC, CBC, LIPASE, BMP #### [facility] [address] [place] [address] Sodium [Moles/Vol] 140 mmol/L Normal 136-146 [facility] Comment on above: Performed By: #### H EPATIC, CBC, LIPASE, BMP #### [facility] [address] [place] [address] Urea nitrogen [Mass/Vol] 29 mg/dL High 9-23 [facility] Comment on above: Performed By: #### H EPATIC, CBC, LIPASE, BMP #### [facility] [address] [place] [address] COVID-19 Antigenon 1 COVID-19 Antigen Healthcare Worker?: Y Tamera Reference Tamera Reference Negative SARS-CoV+SARS-CoV-2 (COVID-19) Ag [Presence] in Respiratory specimen by Rapid immunoassay Negative for SARS Antigen by GIOVANNA COVID19 Blank Space -- Tamera Disclaimer Negative results, from patients with symptom Tamera Disclaimer onset beyond five days, should be treated as [employer]mer[employer] Disclaimer presumptive and confirmation with a molecular [...] Disclaimer consistent with COVID-19. COVID19 Blank Space -- Tamera Disclaimer The Tamera SARS Antigen GIOVANNA does not differentiate Tamera Disclaimer between SARS-CoV and SARS-CoV-2. COVID19 Blank Space -- Tamera Disclaimer This test was developed and its performance Tamera Disclaimer characteristic determined by [employer] and Tamera Disclaimer validated at [facility]. This Tamera Disclaimer test has not [...] is terminated or revoked sooner. PERFORMED BY: [facility] [address] [place] [id number] PATHOLOGIST VIDEO EDITOR TO [place]AD[place] M.D. Normal [facility] Comment on above: Performed By: #### C OVID-19 TAMERA, SOFIANEG, COVID 19 [facility] #### [facility] [address] [place] [address] [facility] COVID-19 [facility] 07-[facility]-2021 SARS-CoV-2 (COVID-19) RNA EMMY+probe Ql (Unsp spec) Negative Normal Negative [facility] Comment on above: Order Comment: Healt hcare Worker?: Y Result Comment: Testing for SARS-CoV-2 by RT-PCR This test was developed and its performance characteristics determined by [employer]) and validated at the [facility]. This test has not been FDA [...] is terminated or revoked sooner. PERFORMED BY: [facility] [address] [place] [address] PATHOLOGIST VIDEO EDITOR TO [place]AD[place] M.D. Performed By: #### C OVID-19 TAMERA, SOFIANEG, COVID 19 [facility] #### [facility] [address] [place] [id number] [facility] abdomen pelvis wo conon 1 CT abdomen pelvis wo con [facility] [place] [address] [place] [address] [address] Scan Report Signed Patient: Andry Pierre MR#: [id number] [birth year] : 1960 Acct:[id number] Age/Sex: 60 / M ADM Date: 07/21/21 Loc: Room: 0G7012-7 Type: ADM INOo Attending Dr: Feliciano Hernandez [...] Ricks Jr., M.D.07/21/2021 9:15 AM Dictation Location: [id number] Transcribed By: FRANKIE 07/21/21914 Dictated By: Duke Ricks Jr, MD 07/21/21903 Signed By: 07/21/21914 Normal [facility] Coagulation Profileon 2020 aPTT Coag (Bld) [Time] 37.9 s High 25.1-36.5 [facility] Comment on above: Result Comment: PERF ORMED BY: [place] [address] PATHOLOGIST VIDEO EDITOR TO MADISON M.D. Performed By: #### P P #### [address] INR Coag (PPP) [Relative time] 2.0 {INR} Normal [facility] Comment on above: Result Comment: INR [...] 4.5 Performed By: #### P P #### [address] PT Coag (PPP) [Time] 22.5 s High 9.0-12.9 [facility] Comment on above: Performed By: #### P P #### [address] Complete Blood Count Auto Di ffon 07-21-2021 Basophils (Bld) [#/Vol] 0.1 10*3/uL Normal 0.0-0.2 [facility] Comment on above: Result Comment: PERF ORMED BY: [place] [address] PATHOLOGIST VIDEO EDITOR TO [place]AD[place] M.D. Performed By: #### H EPATIC, CBC, LIPASE, BMP #### [address] Basophils/100 WBC (Bld) 0.6 % Normal . [facility] Comment on above: Performed By: #### H EPATIC, CBC, LIPASE, BMP #### [address] Eosinophils (Bld) [#/Vol] 0.4 10*3/uL Normal 0.0-0.45 [facility] Comment on above: Performed By: #### H EPATIC, CBC, LIPASE, BMP #### [address] Eosinophils/100 WBC (Bld) 4.3 % Normal . [facility] Comment on above: Performed By: #### H EPATIC, CBC, LIPASE, BMP #### [address] Erythrocyte distribution width (RBC) [Ratio] 13.7 % Normal 12.0-14.8 [facility] Comment on above: Performed By: #### H EPATIC, CBC, LIPASE, BMP #### [address] Hematocrit (Bld) [Volume fraction] 45.9 % Normal 38.8-50.0 [facility] Comment on above: Performed By: #### H EPATIC, CBC, LIPASE, BMP #### [address] Hemoglobin (Bld) [Mass/Vol] 15.4 g/dL Normal 13.0-17.0 [facility] Comment on above: Performed By: #### H EPATIC, CBC, LIPASE, BMP #### [address] Lymphocytes (Bld) [#/Vol] 2.9 10*3/uL Normal 1.00-4.8 [facility] Comment on above: Performed By: #### H EPATIC, CBC, LIPASE, BMP #### [address] Lymphocytes/100 WBC (Bld) 28.4 % Normal . [facility] Comment on above: Performed By: #### H EPATIC, CBC, LIPASE, BMP #### [address] MCH (RBC) [Entitic mass] 32.0 pg Normal 27.5-35.2 [facility] Comment on above: Performed By: #### H EPATIC, CBC, LIPASE, BMP #### [address] MCV (RBC) [Entitic vol] 95.2 fL Normal 83.5-101 [facility] Comment on above: Performed By: #### H EPATIC, CBC, LIPASE, BMP #### [address] Mean Corpuscular HGB Conc 33.6 g/dL Normal 32.5-35.6 [facility] Comment on above: Performed By: #### H EPATIC, CBC, LIPASE, BMP #### [address] Monocytes (Bld) [#/Vol] 0.7 10*3/uL Normal 0.0-0.8 [facility] Comment on above: Performed By: #### H EPATIC, CBC, LIPASE, BMP #### [address] Monocytes/100 WBC (Bld) 6.7 % Normal . [facility] Comment on above: Performed By: #### H EPATIC, CBC, LIPASE, BMP #### [address] Neutrophils (Bld) [#/Vol] 6.0 10*3/uL Normal 1.8-7.7 [facility] Comment on above: Performed By: #### H EPATIC, CBC, LIPASE, BMP #### [address] Neutrophils/100 WBC (Bld) 60.0 % Normal . [facility] Comment on above: Performed By: #### H EPATIC, CBC, LIPASE, BMP #### [address] Nucleated RBC/100 WBC (Bld) [Ratio] 0.1 % Normal 0-0.5 [facility] Comment on above: Performed By: #### H EPATIC, CBC, LIPASE, BMP #### [address] Platelet mean volume (Bld) [Entitic vol] 8.7 fL Normal 6.6-10.1 [facility] Comment on above: Performed By: #### H EPATIC, CBC, LIPASE, BMP #### [address] Platelets (Bld) [#/Vol] 215 10*3/uL Normal 150-450 [facility] Comment on above: Performed By: #### H EPATIC, CBC, LIPASE, BMP #### [address] RBC (Bld) [#/Vol] 4.83 10*6/uL Normal 3.90-5.60 [facility] Comment on above: Performed By: #### H EPATIC, CBC, LIPASE, BMP #### [address] WBC (Bld) [#/Vol] 10.0 10*3/uL Normal 4.5-11.0 [facility] Comment on above: Performed By: #### H EPATIC, CBC, LIPASE, BMP #### [address] Glucose Poct Glucometerson 1 Commemt1 Glu2: Cleaned Meter Normal [facility] Comment on above: Result Comment: PERF ORMED BY: [place] [address] PATHOLOGIST VIDEO EDITOR TO MADISON M.D. Performed By: #### H EPATIC, CBC, LIPASE, BMP #### [address] Glucose [Mass/Vol] 267 mg/dL Normal [facility] Comment on above: Result Comment: [facility] Glucose Reference Range is dependent on time and content of last meal. Glucose of more than 200 mg/dL in a nonstressed, ambulatory subject supports the diagnosis of Diabetes Mellitus. Performed By: #### H EPATIC, CBC, LIPASE, BMP #### [address] Commemt1 Glu2: Cleaned Meter [facility] Comment on above: Result Comment: PERF ORMED BY: [place] [address] PATHOLOGIST VIDEO EDITOR TO MADISON M.D. Performed By: #### H EPATIC, CBC, LIPASE, BMP #### [address] Glucose [Mass/Vol] 252 mg/dL Normal [facility] Comment on above: Result Comment: [place] Glucose Reference Range is dependent on time and content of last meal. Glucose of more than 200 mg/dL in a nonstressed, ambulatory subject supports the diagnosis of Diabetes Mellitus. Performed By: #### H EPATIC, CBC, LIPASE, BMP #### [address] Commemt1 Glu2: Cleaned Meter [facility] Comment on above: Result Comment: PERF ORMED BY: [place] [address] PATHOLOGIST VIDEO EDITOR TO MADISON M.D. Performed By: #### H EPATIC, CBC, LIPASE, BMP #### [address] Glucose [Mass/Vol] 100 mg/dL Normal [facility] Comment on above: Result Comment: [place] [facility] Glucose Reference Range is dependent on time and content of last meal. Glucose of more than 200 mg/dL in a nonstressed, ambulatory subject supports the diagnosis of Diabetes Mellitus. Performed By: #### H EPATIC, CBC, LIPASE, BMP #### [address] Glucose [Mass/Vol] 140 mg/dL Normal [facility] Comment on above: Result Comment: [place] [facility] Glucose Reference Range is dependent on time and content of last meal. Glucose of more than 200 mg/dL in a nonstressed, ambulatory subject supports the diagnosis of Diabetes Mellitus. PERFORMED BY: [place] [address] PATHOLOGIST VIDEO EDITOR TO MADISON M.D. Performed By: #### H EPATIC, CBC, LIPASE, BMP #### [facility] [address] [place] [address] Hepatic Panelon 07-21-2021 Albumin [Mass/Vol] 3.5 g/dL Normal 3.2-5.5 [facility] Comment on above: Performed By: #### H EPATIC, CBC, LIPASE, BMP #### [facility] [address] [place] [address] Albumin/Globulin [Mass ratio] 1.1 {ratio} Normal [facility] Comment on above: Performed By: #### H EPATIC, CBC, LIPASE, BMP #### [facility] [address] [place] [address] ALP [Catalytic activity/Vol] 115 U/L High 32-92 [facility] Comment on above: Performed By: #### H EPATIC, CBC, LIPASE, BMP #### [facility] [address] [place] [address] ALT [Catalytic activity/Vol] 30 U/L Normal 10-60 [facility] Comment on above: Performed By: #### H EPATIC, CBC, LIPASE, BMP #### [facility] [address] [place] [address] AST [Catalytic activity/Vol] 19 U/L Normal 10- [facility] Comment on above: Performed By: #### H EPATIC, CBC, LIPASE, BMP #### [facility] [address] [place] [address] Bilirubin [Mass/Vol] 0.7 mg/dL Normal 0.3-1.2 [facility] Comment on above: Performed By: #### H EPATIC, CBC, LIPASE, BMP #### [facility] [address] [place] [address] Bilirubin,Indirect Not performed Normal [facility] Comment on above: Performed By: #### H EPATIC, CBC, LIPASE, BMP #### [facility] [address] Bilirubin.indirect [Mass/Vol] mg/dL Normal 0.0-0.4 [facility] Comment on above: Performed By: #### H EPATIC, CBC, LIPASE, BMP #### [facility] [address] Globulin (S) [Mass/Vol] 3.2 g/dL Normal [facility] Comment on above: Performed By: #### H EPATIC, CBC, LIPASE, BMP #### [facility] [address] Protein [Mass/Vol] 6.7 g/dL Normal 6.1-7.9 [facility] Comment on above: Performed By: #### H EPATIC, CBC, LIPASE, BMP #### [address] Lactic Acidon 07-21-2021 Lactate [Moles/Vol] 1.2 mmol/L Normal 0.5-2.2 [facility] Comment on above: Result Comment: PERF ORMED BY: [place] [address] PATHOLOGIST VIDEO EDITOR TO MADISON M.D. Performed By: #### L ACTIC #### [facility] [address] Lipaseon 07-21-2021 Lipase [Catalytic activity/Vol] 43.0 U/L Normal 22-51 [facility] Comment on above: Result Comment: PERF ORMED BY: [place] [address] PATHOLOGIST VIDEO EDITOR TO MADISON M.D. Performed By: #### H EPATIC, CBC, LIPASE, BMP #### [facility] [address] Tamera Ag Negativeon 07-21-20 Tamera Ag Negative Negative Normal Negative [facility] Comment on above: Result Comment: This is a duplicate Tamera SARS Antigen (GIOVANNA) result to be used for statistical tracking purpose only. PERFORMED BY: [place] [address] PATHOLOGIST VIDEO EDITOR TO MADISON M.D. Performed By: #### C OVID-19 TAMERA, SOFIANEG, COVID 19 [facility] #### [facility] [address] [place] [address] [place] Urinalysison 07-21-2021 Appearance (U) Clear Normal Clear [facility] Comment on above: Order Comment: Name Collection Type:: Clean-Voided Midstream Performed By: #### U A #### [facility] [address] [place] [address] [place] Bilirubin,Urine Negative Normal Negative [facility] Comment on above: Order Comment: Name Collection Type:: Clean-Voided Midstream Performed By: #### U A #### [place] [address] [place] Color (U) Yellow Normal Yellow [facility] Comment on above: Order Comment: Name Collection Type:: Clean-Voided Midstream Performed By: #### U A #### [facility] [address] [place] [address] [place] Glucose Ql (U) >=1000 High Normal [facility] Comment on above: Order Comment: Name Collection Type:: Clean-Voided Midstream Performed By: #### U A #### [facility] [address] [place] [address] [place] Ketones Ql (U) Negative Normal Negative [facility] Comment on above: Order Comment: Name Collection Type:: Clean-Voided Midstream Performed By: #### U A #### [facility] [address] [place] [address] [place] Leukocyte esterase Test strip Ql (U) Negative Normal Negative [facility] Comment on above: Order Comment: Name Collection Type:: Clean-Voided Midstream Performed By: #### U A #### [facility] [address] [place] [address] [place] Nitrite,Urine Negative Normal Negative [facility] Comment on above: Order Comment: Name Collection Type:: Clean-Voided Midstream Performed By: #### U A #### [address] Occult Blood,Urine Negative Normal Negative [facility] Comment on above: Order Comment: Name Collection Type:: Clean-Voided Midstream Result Comment: PERF ORMED BY: [place] [address] PATHOLOGIST VIDEO EDITOR TO MADISON M.D. Performed By: #### U A #### [address] pH (U) 6.5 [pH] Normal 5.0-9.0 [facility] Comment on above: Order Comment: Name Collection Type:: Clean-Voided Midstream Performed By: #### U A #### [address] Protein,Urine Negative Normal Negative [facility] Comment on above: Order Comment: Name Collection Type:: Clean-Voided Midstream Performed By: #### U A #### [address] Specificy [place]irt[place],Urine 1.026 Normal 1.001-1.030 [facility] Comment on above: Order Comment: Name Collection Type:: Clean-Voided Midstream Performed By: #### U A #### [address] Urobilinogen,Urine Normal Normal Normal [facility] Comment on above: Order Comment: Name Collection Type:: Clean-Voided Midstream Performed By: #### U A #### [address] General Surgery Office/Clini c Noteon 05-31-2021 [...] hematuria Head injury Heart disease 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 [facility] Comment on above: Result Comment: Elec tronically Signed By: NOE GEORGE, Andry Das\.br\Date and Time Signed: 05/31/21 11:26 EDT Ambulatory Clinical Summaryo n 05-29-2021 Ambulatory Clinical Summary {[id number]}CD: [id number] [facility] Outside Colonoscopyon 2020 Outside Colonoscopy [id number]#1.00CD:127 [facility] Pathology Noteon 05-25-2021 Pathology Note [id number]#1.00CD:127 [facility] Provider Letter FTon 05-23 Provider Letter [facility] [place] 23, 2021 Say Mccormick, [address] [place] [address] Re: ANDRY PIERRE Date of : 1960 Thank you for your referral of Andry [place] who was seen on consultation on May 18, 2021, for Right upper quadrant pain and rectal bleeding, nausea, vomiting, and constipation. I have enclosed my consultation notes for your review. I will be happy to follow Andry should his symptoms persist. Sincerely, Andry Adames MD General Surgery [facility] Consent for Procedure/Surger yon 05-21-2021 Consent for Procedure/Surgery [id number]#1.00CD:127 [facility] Immunization Recordson 05-21 Immunization Records [id number]#1.00CD:127 [facility] Ambulatory Clinical Summaryo n 05-18-2021 Ambulatory Clinical Summary {[id number]}CD: [id number] Normal [facility] General Surgery Office/Clini c Noteon 05-18-2021 General Surgery Office/Clinic Note HPI Staff Est patient , RUQ pain x 8 wks , u/s done 05/03/21 @ [facility]. 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 Normal [facility] Comment on above: Result Comment: Elec tronically Signed By: NOE GEORGE, Andry Daniel\Date and Time Signed: 05/18/21 15:[address] - CT Reporton 05-17-2021 [address] - [address] Report [id number]#1.00CD:127 Normal [facility] RAD - MISCon 05-17-2021 RAD - MISC [id number]#1.00CD:127 [facility] RAD - MISC [id number]#1.00CD:127 [facility] RAD - Ultrasound Reporton RAD - Ultrasound Report [id number]#1.00CD:127 [facility] RAD - Ultrasound Reporton RAD - Ultrasound Report [id number]#1.00CD:127 Normal [facility] Physician Referralon 021 Physician Referral [id number]#1.00CD:127 [facility] Provider [facility] Provider Letter [facility] March 23, 2021 Say Mccormick, [address] [place] [address] Re: ANDRY PIERRE Date of : 1960 Thank you for your referral of Andry [place] who was seen on consultation of excision of lump on the neck on March 14, 2021. I have enclosed my consultation notes for your review. I will be happy to follow Andry should his symptoms persist. Sincerely, Andry Adames MD General Surgery [facility] Ambulatory Clinical Summaryo n 03-14-2021 Ambulatory Clinical Summary {[id number]}CD: [id number] [facility] Patient Educationon 03-14-20 Patient Education Exercising to [...] your health care provider or diet and brand marketing specialist (dietitian). This may include: ? Eating [...] U.S. Department of Health and Human Services: www.[facility].gov ? Centers for Disease Control and Prevention [...] calories than (more content not included)... Normal [facility] Physician Referralon Physician Referral [id number]:127 [facility] Patient Correspondenceon Patient Correspondence [id number]#1.00CD:127 [facility] Reminderson 01-10-2021 Reminders - From: [...] letters sent?LG From: Rosa Cuellar ( - [facility] Karlie) To: Larry BARFIELD MD; Cc: Rosa [...] LR Letter mailed regular/certified letter today. Normal [facility] Provider Letteron 01-09-2021 Provider Letter (Inserted Image. Pina ble to display) January 09, 2021 ANDRY PIERRE [address] [place] [address] ANDRY PIERRE 1960 SENT VIA CERTIFIED AND REGULAR MAIL Dear Mr. [place], This letter is to inform you the providers of [facility], [facility] will no longer be responsible for your routine medical care due to your noncompliance. Emergency care only will be provided for the thirty (30) days following this letter. During this time period we suggest that you find another physician for your medical needs. A listing of area physicians can be found on [facility]'s website at [email or web address] or you may contact your health plan. We will be glad to forward your records to your new physician as long as we receive a signed release of records form. Sincerely, Larry Barfield M.D., F.A.C.S. [facility] [address] [place] [address] Normal [facility] Patient Correspondenceon Patient Correspondence [id number]#1.00CD:127 Normal [facility] Provider Letter Office-[facility] 11-24-2020 Provider Letter Office-[facility] November 24, 2020 ANDRY PIERRE [address] [place] [address] ANDRY PIERRE 1960 SENT VIA CERTIFIED AND [...] Larry Barfield M.D., F.A.C.S. [facility] [address] [place] [address] [facility] Reminderson 08-02-2020 Reminders - From: Radha King MA To: EU - Clinical; Sent: 07/19/2020 14:09:34 EDT Show up: 08/02/2020 14:09:00 EDT Subject: fish/cytol Reminder/Recall fish/cytol done 07/19/2020 done, sent msg to prw to review results Normal [facility] Outside Cardiovascularon Outside Cardiovascular [id number]#1.00CD:127 Normal [facility] Outside Radiologyon 08-01-20 20 Outside Radiology [id number]#1.00CD:127 Normal [facility] Outside Radiology [id number]#1.00CD:127 Normal [facility] Progress Note-Physicianon Progress Note-Physician [id number]#1.00CD:127 Normal [facility] Urology Office/Clinic Noteon 07-25-2020 Urology Office/Clinic Note Chief Complaint New Pt. HPI Staff New Pt. [facility] on 07/10/2020 due to leaking around catheter. US of kidneys done 11/17/2019. CT SCAN done 07/04/2020. Pt. states after having a Ct scan Pt. was not able to urinate and had catheter placed. Pt. does not have a history of urine retention. 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 Pt. states by a Doctor in [place] told Pt. had prostates cancer. Pt. states no biopsy was done, just a blood test. PSA was 1.39 done 07/07/20. Cath was removed at [facility] this morning. Dysuria: denies pain or burning Incomplete bladder emptying: yes pt had cath for 2 weeks placed by [facility], cath was removed this morning at [facility] Hematuria: pt states he had visible blood [...] since last encounter. Reviewed CT scan and [facility] notes Review of Systems PHQ Score [...] Retention of urine, unspecified) Patient reported to [facility] ER for leaking around catheter on 07/10/20 [...] contributing t (more content not included)... Normal [facility] Comment on above: Result Comment: Elec tronically Signed By: Yon GEORGE, Lefty Jamil\.br\Date and Time Signed: 07/25/20 12:11 EDT Urology Office/Clinic Note Chief Complaint [facility] 07/10/2020 HPI Staff [facility] on 07/10/2020 due to leaking around catheter. US of kidneys done 11/17/2019. Pt. states after having a Ct scan Pt. was not able to urinate and had catheter placed. Pt. does not have a history of urine retention. 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 Pt. states by a Doctor in [place] told Pt. had prostates cancer. Pt. states [...] abdominal pain. History of Present Illness Reviewed [employer] paper works. There have been no associated [...] of urine (R33.9: Retention of urine, unspecified) [employer] is here for urinary retention that started [...] prostate cancer 3yrs. ago by a in [place]. Pt. states that there was never a [...] urine fo (more content not included)... Normal [facility] Comment on above: Result Comment: Elec tronically Signed By: Yon GEORGE, Lefty Jamil\.br\Date and Time Signed: 07/25/20 11:44 EDT Lab Reportson 07-24-2020 Lab Reports [id number]#1.00CD:127 Normal [facility] UroVysion Fish and Urine Cyt o ([facility])on 07-24-2020 UVFISH & UC Diagnosis Info Invalid Interpretation Code [facility] Comment on above: Result Comment: A:Ur ine,Urine:Voided [...] on: 07/24/2020 10:42:51 Performed By: #### 1 [id number] ####[facility] [address] [place] [address] - [address] Reporton 07-21-[address] - [address] Report [id number]#1.00CD:127 [facility] ED Note-Physicianon 07-20-20 ED Note-Physician [id number]#1.00CD:127 Normal [facility] Formson 07-20-2020 Forms [id number]#1.00CD:127 [facility] Ambulatory Clinical Summaryo n 07-19-2020 Ambulatory Clinical Summary {[id number]}CD: [id number] [facility] Ambulatory Clinical Summary {[id number]}CD: [id number] [facility] Auth for Release of Medical Recordson 07-19-2020 Auth for Release of Medical Records [id number]#1.00CD:127 [facility] Patient Educationon 07-19-20 Patient Education Family [...] Document Reviewed: 12/14/2012 ExitCare? Patient Information ?2013 [employer] [email or web address]. [facility] Patient Education Family Medicine Acute Urinary [...] your urine. Then you and your personal lines insurance agent can decide at your earliest convenience how [...] to a urinary tract infection. Only take npwh-rfs-vqfnisz or prescription medicines for pain, discomfort, or fever as directed by your caregiver. SEEK IMMEDIATE MEDICAL CARE IF: You develop chills, fever, or show signs of generalized illness that occurs prior to seeing your caregiver. Document Released: 12/29/2001 Document Revised: 12/14/2012 Document Reviewed: 09/13/2009 ExitCare? Patient Information ?2013 [place]. [facility] Provider Letter [facility] Say Mccormick [address] [place] [address] Re: ANDRY PIERRE Date of : 1960 [...] based on PSA alone per pt in [facility]. Equally confusing is the fact [...] a remote history of prostate cancer in [facility] by a outside urologist without [...] to determine his PSA's were done in [facility]. I began suspecting the patient [...] impression of (more content not included)... Normal [facility] RAD - CT Reporton 07-19-[address] - [address] Report [id number]#1.00CD:127 Normal [facility] UroVysion Fish and Urine Cyt o ([facility])on 07-19-2020 [facility] Method of Extraction Voided Normal [facility] Comment on above: Performed By: #### 1 [id number] ####[facility] [address] [place] [address] [facility] Number of Jars 1 Invalid Interpretation Code [facility] Comment on above: Performed By: #### 1 [id number] ####[facility] [address] [place] [address] [facility] Specimen Urine Normal [facility] Comment on above: Performed By: #### 1 [id number] ####[facility] [address] [place] [address] [facility] Type of Service Technical Only Normal [facility] Comment on above: Performed By: #### 1 [id number] ####[place] [id number] [place] [address] Vital Signs Date Time Vital Sign Value Performing Clinician Facility 12-08-2023 19:17-0500 Respiratory rate 18 /min Abdirahman Hunt MD [facility] 12-08-2023 16:50-0500 Body temperature 97.9 [degF] Abdirahman Hunt MD [facility] 12-08-2023 16:50-0500 Diastolic blood pressure 88 mm[Hg] Abdirahman Hunt MD [facility] 12-08-2023 16:50-0500 Heart rate 90 /min [facility] 12-08-2023 16:50-0500 SaO2% (BldA) [Mass fraction] 98 % Abdirahman Hunt MD [facility] 12-08-2023 16:50-0500 Systolic blood pressure 149 mm[Hg] [facility] 12-05-2023 15:04-0500 Body height 180.3 cm Abdirahman Hunt MD [facility] 11-30-2023 00:18-0500 Body temperature 37.0 Abdirahman Hunt MD [facility] 11-29-2023 20:00-0500 Body mass index (BMI) [Ratio] 40.96 kg/m2 Abdirahman Hunt MD [facility] 11-29-2023 20:00-0500 Body weight 133.2 kg [facility]ahman [facility] 11-06-2023 09:57-0500 Body height 175.3 cm Obed Florian MD Work Phone: [facility] 11-06-2023 09:57-0500 Body weight 123.38 kg Obed Florian MD Work Phone: [facility] 11-06-2023 09:57-0500 Diastolic blood pressure 89 mm[Hg] Obed Florian MD Work Phone: [facility] 11-06-2023 09:57-0500 Heart rate 81 /min Obed Florian MD Work Phone: [facility] 11-06-2023 09:57-0500 SaO2% (BldA) [Mass fraction] 95 % Obed Florian MD Work Phone: [facility] 11-06-2023 09:57-0500 Systolic blood pressure 127 mm[Hg] Obed Florian MD Work Phone: [facility] 01-21-2022 07:23-0400 Body height 182.9 cm Pacc 3 Work Phone: [facility] 01-21-2022 07:23-0400 Body temperature 97.2 [degF] Pacc 3 Work Phone: [facility] 01-21-2022 07:23-0400 Body weight 140.21 kg Pacc 3 Work Phone: [facility] 01-21-2022 07:23-0400 Diastolic blood pressure 84 mm[Hg] Pacc 3 Work Phone: [facility] 01-21-2022 07:23-0400 Heart rate 57 /min Pacc 3 Work Phone: [facility] 01-21-2022 07:23-0400 SaO2% (BldA) [Mass fraction] 99 % Pacc 3 Work Phone: [facility] 01-21-2022 07:23-0400 Systolic blood pressure 134 mm[Hg] Pacc 3 Work Phone: [facility] 11-13-2021 12:20-0500 Body height 182.88 cm Sanjay Dooley Other [employer] Other 11-13-2021 12:20-0500 Body mass index (BMI) [Ratio] 42.04 kg/m2 Sanjay Dooley Other [employer] Other 11-13-2021 12:20-0500 Body temperature 96.2 [degF] Sanjay Dooley Other [employer] Other 11-13-2021 12:20-0500 Body weight 140.62 kg Sanjay Laroses Other [employer] Other 11-13-2021 12:20-0500 Diastolic blood pressure 60 mm[Hg] Azlevi Laroses Other [employer] Other 11-13-2021 12:20-0500 Respiratory rate 20 /min Sanjay Laroses Other [employer] Other 11-13-2021 12:20-0500 SaO2% (BldA) [Mass fraction] 96 % Sanjay Dooley Other [employer] Other 11-13-2021 12:20-0500 Systolic blood pressure 92 mm[Hg] Sanjay Laroses Other [employer] Other Encounters Encounter Date Encounter Type Care Provider Facility Start: 01-27-2024 ambulatory [facility] Start: 01-22-2024 End: 01-22-2024 ambulatory YANCY CERVANTES Not Available Start: 01-21-2024 End: 01-21-2024 ambulatory YANCY CERVANTES Not Available Start: 01-13-2024 ambulatory SOFYA HIDALGO [facility] Start: 01-06-2024 End: 01-06-2024 ambulatory YANCY CERVANTES Not Available Start: 11-29-2023 End: 12-08-2023 Evaluation and management of inpatient CHARLEE Victor Manuel ARCE [facility] Start: 11-29-2023 End: 12-08-2023 Evaluation and management of inpatient Bayan Reji Hunt MD [facility] Stepdown Start: 11-28-2023 End: 11-29-2023 Emergency department patient visit SAY MCCORM[facility] Start: 11-28-2023 End: 12-01-2023 ambulatory [facility] Start: 11-25-2023 End: [facility]23 [facility] Start: 11-19-2023 End: 11-19-2023 Subsequent hospital visit by physician M[facility] Lab 1 [facility] Comment on above: Canceled (Patient co ndition) Start: 11-06-2023 End: 11-07-2023 ambulatory [facility] Facility:[facility] Start: 11-06-2023 End: 11-06-2023 ambulatory [facility] Facility:[facility] Start: 11-06-2023 End: 11-06-2023 Patient encounter procedure Obed Florian MD Work Phone: Neurology Comment on above: Diabetic polyneuropa thy associated with type 2 diabetes mellitus (HCC) [E11.42] (Primary Dx); Weakness; Obesity, Class III, BMI 40-49.9 (morbid obesity) (HCC) Start: 10-21-2023 End: 10-22-2023 ambulatory [facility] Start: 10-10-2023 ambulatory [facility] Start: 10-08-2023 End: 10-14-2023 Emergency department patient visit [facility] Start: 09-19-2023 End: 09-20-2023 ambulatory [facility] Facility:[facility] Start: 09-12-2023 Telephone encounter Shane bowling PA-C Work Phone: [facility] Comment on above: DBS problem Start: 08-19-2023 End: 08-19-2023 ambulatory SURI [facility] Start: 08-11-2023 End: 08-12-2023 ambulatory Ramon Mendiola MD Facility:[facility] Start: 07-17-2023 End: 07-18[facility]: 07-07-2023 Telephone encounter Wesley Rose MD Work Phone: [facility] Start: 05-21-2023 End: 05-21-2023 ambulatory [facility] Start: 02-20-2023 End: 02-21-2023 ambulatory [facility] Facility:[facility] Start: 02-20-2023 End: 02-20-2023 ambulatory [facility] Start: 02-03-2023 End: 03-05-2023 ambulatory CARMICHAEL H FAWWAD Facility:[facility]1 Start: 01-07-2023 End: 01-08-[address] SAY MCCORMICK . Facility:[facility] Start: 01-06-2023 End: 01-31-2023 ambulatory CARMICHAEL H FAWWAD Facility:[facility]1 Start: 12-04-2022 End: 01-03-2023 ambulatory CARMICHAEL H FAWWAD Facility:[facility] Start: 11-06-2022 End: 12-04-2022 ambulatory CARMICHAEL H FAWWAD Facility:[facility] Start: 10-07-2022 End: 11-06-2022 ambulatory CARMICHAEL H FAWWAD Facility:[facility] Start: 09-05-2022 End: 10-06-2022 ambulatory CARMICHAEL H FAWWAD Facility:[facility] Start: 08-06-2022 End: 09-04-[address] SAY MCCORMICK . Facility:[facility] Start: 07-10-2022 Encounter for preprocedural laboratory examination DIOGENES RODRIGUEZ [facility] Start: 07-08-2022 End: 07-09-2022 ambulatory DIOGENES RODRIGUEZ Facility:[facility] Start: 07-08-2022 End: 07-09-2022 Encounter for preprocedural laboratory examination DIOGENES RODRIGUEZ Facility:[facility] Start: 07-08-2022 End: 08-05-[address] SAY MCCORMICK . Facility:[facility] Start: 06-24-2022 End: 06-24-2022 ambulatory PRANAV VASQUEZ Facility:[facility] Start: 06-13-2022 End: 07-06-[address] SAY MCCORMICK . Facility: Start: 05-29-2022 End: 05-30-2022 ambulatory [facility] Facility: Start: 05-23-2022 End: 05-24-2022 ambulatory SOFYA BERRY Facility: Start: 05-06-2022 End: 06-05-2022 ambulatory SHAIKH Brenda DEWEY Facility: Start: 04-05-2022 End: 05-03-2022 ambulatory CARMICHAEL Brenda DEWEY Facility: Start: 01-23-2022 Telephone encounter Wesley Rose MD Work Phone: Neurological [facility] Comment on above: Results Start: 01-21-2022 End: 01-21-2022 ambulatory [facility] Work Phone: Pre Anesthesia Comment on above: Pre-op evaluation (P rimary Dx); Essential tremor; Type 2 diabetes mellitus with other specified complication, with long-term current use of insulin ([facility]); Obesity, Class III, BMI >= 40; Essential hypertension; Difficult intravenous access; Acute, but ill-defined, cerebrovascular disease; Obstructive sleep apnea syndrome; Chronic obstructive pulmonary disease, unspecified COPD type ([facility]); Tobacco use; Tracheal stenosis; Gastroesophageal reflux disease, unspecified whether esophagitis present; Pulmonary embolus with infarction ([facility]); Congestive heart failure, unspecified HF chronicity, unspecified heart failure type ([facility]); Stage 3 chronic kidney disease, unspecified whether stage 3a or 3b CKD ([facility]) 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) (Primary Dx) Start: 01-21-2022 End: 01-21-2022 Nursing evaluation of patient and report Kerwin Brito RN Work Phone: [facility] Comment on above: Essential tremor (Pr imary Dx) Start: 01-21-2022 End: 01-21-2022 Patient encounter procedure Wesley Rose MD Work Phone: [facility] Comment on above: Essential tremor (Pr imary Dx) Start: 01-21-2022 End: 01-21-2022 [facility] Work Phone: [facility] Start: 01-21-2022 End: 01-21-2022 Preprocedural examination done Pac Main 3 Work Phone: Pre Anesthesia Start: 01-04-2022 Telephone encounter Harris chowdhury MD Work Phone: Neurological [facility] Comment on above: DBS MARIA G message Start: 11-26-2021 End: 11-26-2021 ambulatory Aziz Bakhous Other [employer] Other Start: 11-26-2021 Telephone encounter Aziz Bakhous [facility] Start: 11-13-2021 End: 11-13-2021 ambulatory Aziz Bakhous Other [employer] Other Start: 11-13-2021 Office outpatient ne w 45 minutes Aziz Bakhous [facility] [place] Start: 11-13-2021 Telephone encounter Aziz Bakhous [facility] Start: 07-21-2021 End: 07-27-2021 ambulatory JESUS BAUDILIO Facility:[facility] Procedures Date Procedure Procedure Detail Performing Clinician Start: 12-08-2023 Glucose blood reagen t strip Lori Leblanc MD Work Phone: Start: 12-08-2023 Glucose blood reagen t strip Lori Leblanc MD Work Phone: Start: 12-08-2023 Glucose blood reagen t strip Lori Leblanc MD Work Phone: Start: 12-08-2023 Glucose blood reagen t strip Lori Leblanc MD Work Phone: Start: 12-08-2023 Prothrombin time Joann Nur MD Work Phone: Start: 12-07-2023 Glucose blood reagen t strip Lori Leblanc MD Work Phone: Start: 12-07-2023 Glucose blood reagen t strip Lori Leblanc MD Work Phone: Start: 12-07-2023 Glucose blood reagen t strip Lori Leblanc MD Work Phone: Start: 12-07-2023 End: 12-07-2023 Blood count platelet automated Jamia Nur MD Work Phone: Start: 12-06-2023 Glucose blood reagen t strip Lori Leblanc MD Work Phone: Start: 12-06-2023 Glucose blood reagen t strip Lori Leblanc MD Work Phone: Start: 12-06-2023 Glucose blood reagen t strip Lori Leblanc MD Work Phone: Start: 12-06-2023 End: 12-06-2023 Prothrombin time Jackie Rivas MD Work Phone: Start: 12-05-2023 Radiologic examinati on foot 2 views Rosalia Mobley REHANGER - DIRECTOR OF STUDENT FINANCIAL AID Work Phone: Start: 12-05-2023 Glucose blood reagen t strip Lori Leblanc MD Work Phone: Start: 12-05-2023 Glucose blood reagen t strip Lori Leblanc MD Work Phone: Start: 12-05-2023 Glucose blood reagen t strip Lori Leblanc MD Work Phone: Start: 12-05-2023 Glucose blood reagen t strip Lori Leblanc MD Work Phone: Start: 12-05-2023 Blood count platelet automated Jamia Nur MD Work Phone: Start: 12-04-2023 Glucose blood reagen t strip Lori Leblanc MD Work Phone: Start: 12-04-2023 Glucose blood reagen t strip Lori Leblanc MD Work Phone: Start: 12-04-2023 Glucose blood reagen t strip Lori Leblanc MD Work Phone: Start: 12-04-2023 Glucose blood reagen t strip Lori Leblanc MD Work Phone: Start: 12-04-2023 Prothrombin time Jackie Rivas MD Work Phone: Start: 12-04-2023 Glucose blood reagen t strip Lori Leblanc MD Work Phone: Start: 12-03-2023 Glucose blood reagen t strip Lori Leblanc MD Work Phone: Start: 12-03-2023 Glucose blood reagen t strip Lori Lelbanc MD Work Phone: Start: 12-03-2023 Glucose blood reagen t strip Lori Leblanc MD Work Phone: Start: 12-03-2023 Glucose blood reagen t strip Lori Leblanc MD Work Phone: Start: 12-03-2023 Prothrombin time Jackie Rivas MD Work Phone: Start: 12-02-2023 Glucose blood reagen t strip Lori Leblanc MD Work Phone: Start: 12-02-2023 Glucose blood reagen t strip Lori Leblanc MD Work Phone: Start: 12-02-2023 EEG Slick Mags i REHANGER - DIRECTOR OF STUDENT FINANCIAL AID Work Phone: Start: 12-02-2023 Glucose blood reagen t strip Lori Leblanc MD Work Phone: Start: 12-02-2023 Glucose blood reagen t strip Lori Leblanc MD Work Phone: Start: 12-02-2023 BASIC METABOLIC PANE L W/ REFLEX TO MG FOR LOW K Sue GARZA Work Phone: Start: 12-02-2023 Prothrombin time Jackie Rivas MD Work Phone: Start: 12-01-2023 Glucose blood reagen t strip Polly Ramos MD Work Phone: Start: 12-01-2023 Glucose blood reagen t strip Polly Ramos MD Work Phone: Start: 12-01-2023 Assay of troponin quantitative Halina Lugo MD Work Phone: Start: 12-01-2023 End: 12-01-2023 Ecg routine ecg w/least 12 lds i&r only Jackie Rivas MD Work Phone: Start: 12-01-2023 Glucose blood reagen t strip Polly Ramos MD Work Phone: Start: 12-01-2023 Radiologic exam swal low function contrast study Polly Ramos MD Work Phone: Start: 12-01-2023 Ct cervical spine w/ o contrast material Carmelo Mahajan DO Work Phone: Start: 12-01-2023 Glucose blood reagen t strip Polly Ramos MD Work Phone: Start: 12-01-2023 BASIC METABOLIC PANE L W/ REFLEX TO MG FOR LOW K Sue GARZA Work Phone: Start: 12-01-2023 End: 12-01-2023 Prothrombin time Jackie Rivas MD Work Phone: Start: 11-30-2023 Glucose blood reagen t strip Jackie Rivas MD Work Phone: Start: 11-30-2023 Glucose blood reagen t strip Jackie Rivas MD Work Phone: Start: 11-30-2023 Glucose blood reagen t strip Jackie Rivas MD Work Phone: Start: 11-30-2023 Glucose blood reagen t strip Jackie Rivas MD Work Phone: Start: 11-30-2023 Ct thoracic spine w/ o contrast material Crystal Romero APRN - DIRECTOR OF STUDENT FINANCIAL AID Work Phone: Start: 11-30-2023 End: 11-30-2023 Assay of aldolase Radha Lao MD Work Phone: Start: 11-30-2023 T. PALLIDUM AB Radha Lao MD Work Phone: Start: 11-30-2023 BASIC METABOLIC PANE L W/ REFLEX TO MG FOR LOW K Sue Екатерина GARZA Work Phone: Start: 11-30-2023 C-reactive protein Danelle Nur MD Work Phone: Start: 11-30-2023 Calcium ionized Jamal Nur MD Work Phone: Start: 11-30-2023 MYOGLOBIN, BLOOD Joann Nur MD Work Phone: Start: 11-30-2023 VITAMIN B12 & FOLATE Ve fidel Nur MD Work Phone: Start: 11-30-2023 Blood gases any combination ph pco2 po2 co2 hco3 Jamia Nur MD Work Phone: Start: 11-29-2023 End: 11-29-2023 Glucose blood reagent strip Abdirahman Hunt MD Start: 02-20-[address] CARITO MCCORMICK . Comment on above: Performed By: #### A 1C #### [facility] [address] [place] [address] Dr. Miah Buck Start: 07-26-2021 Resection of Gallbladder, Percutaneous Endoscopic Approach DAVON OLIVIER Start: 07-24-2021 DILATION OF COMMON HEPATIC DUCT, ENDO ALI T NAWRAS Start: 02-24-2015 Colonoscopy Mth 1 Start: 12-01-2014 H/O: surgery S/P deep brain stimulator placement Mth 1 H/O: surgery S/P deep brain stimulator placement Abdirahman Hunt MD Plan of Treatment Date Care Activity Detail Author Start: 02-21-2028 Prostate Cancer Screening Discussion Prostate Cancer Screening Discussion [facility] Start: 02-21-2028 Prostate specific antigen measurement Prostate Cancer Screening Discussion [facility] Start: 2025 Pneumococcal 0-64 years Vaccine (3 - PPSV23 or PCV20) Pneumococcal 0-64 years Vaccine (3 - PPSV23 or PCV20) [facility] Start: 2025 Pneumococcal vaccination [facility] Start: 02-24-2025 Screening for malignant neoplasm of colon [facility] Start: 12-02-2024 GFR test (Diabetes, CKD 3-4, OR last GFR 15-59) GFR test (Diabetes, CKD 3-4, OR last GFR 15-59) [facility] Start: 11-25-2024 Hemoglobin A1c measurement A1C test (Diabetic or Prediabetic) [facility] Start: 01-15-2024 End: 01-15-2024 Patient encounter procedure 01/15/2024 11:40 AM EDT Office Visit [facility] [address] [place] [address] [address] [place] [id number] [place] [address] [place] [address], [address] [place] [address] and ophthalmology referral memory [facility] Comment on above: 6W labs CT and ophth almology referral memory Start: 12-16-2023 End: 12-16-2023 Patient encounter procedure 12/16/2023 2:00 PM EDT Procedure visit [facility] [address] [place] [id number] Evelyn Claire MD [address] [place] [id number] emg: ble (has heart monitor implanted- not pacemaker) [facility] Comment on above: emg: ble (has heart monitor implanted- not pacemaker) Start: 11-28-2023 End: 11-28-2023 Patient encounter procedure 11/28/2023 1:00 PM EST Appointment [facility] Cardiology [address] [place] [address] MEDIA - R/S W/ PT GWEN 11/19/23 BB [facility] Comment on above: MEDIA - R/S W/ PT WI FE GWEN 11/19/23 BB Start: 11-25-2023 End: 11-25-2023 Patient encounter procedure 11/25/2023 11:40 AM EST Office Visit [facility] [address] [place] [address] [address] [place] [id number] Yudith Martinez PA [address] [facility], [address] [place] [address] 4W swallow study double vision [facility] Comment on above: 4W swallow study cesario ble vision Start: 11-04-2023 End: 11-04-2024 Tilt table Tilt table CV Cardiac Diagnostics Routine Syncope and collapse Expected: 11/04/2023, Expires: 11/04/2024 [facility] Work Phone: Comment on above: Expected: 11/04/2023 , Expires: 11/04/2024 Start: 10-27-2023 Complete blood count Hemoglobin/Juan tocrit [facility] Start: 10-27-2023 Creatinine measurement Serum Creatin ine [facility] Start: 10-27-2023 Serum Creatinine Serum Creatinine [facility] Start: 10-06-2023 Annual Wellness Visi t (Medicare Advantage) Annual Wellness Visit (Medicare Advantage) [facility] Start: 06-06-2023 Covid-19 Vaccine (2022- season) Covid-19 Vaccine (2022- season) [facility] Start: 06-06-2023 Influenza vaccination Influenza Vacc ine (#1) [facility] Start: 05-06-2023 Influenza vaccination Flu vaccine (# 1) [facility] Start: 01-21-2023 HEMOGLOBIN/HEMATOCRIT HEMOGLOBIN/HEM ATOCRIT [facility] Start: 01-21-2023 SERUM CREATININE SERUM CREATININE Cl [facility] Start: 11-28-2022 SERUM CREATININE SERUM CREATININE [facility] Start: 06-06-2022 Influenza vaccination INFLUENZ A (Season Ended) [facility] Start: 04-22-2022 Hemoglobin A1c measurement HbA1C [facility] Start: 04-22-2022 Hemoglobin A1c/Hemoglobin.total in Blood HBA1C [facility] Start: 01-20-2022 End: 03-22-2022 Hemoglobin A1c/Hemoglobin.total in Blood HGB A1C Lab Routine Type 2 diabetes mellitus with other specified complication, with long-term current use of insulin (HCC) Pre-op evaluation Expected: 01/20/2022, Expires: 03/22/2022 [facility] Work Phone: Comment on above: Expected: 01/20/2022 , Expires: 03/22/2022 Start: 02-03-2021 COVID-19 VACCINE (2 - Booster for Mary Ellen series) COVID-19 VACCINE (2 - Booster for Mary Ellen series) [facility] Start: 2020 Hepatitis B Vaccine (1 of 3 - Risk 3-dose series) Hepatitis B Vaccine (1 of 3 - Risk 3-dose series) [facility] Start: 2020 Respiratory Syncytia l Virus (RSV) or age 60 yrs+ (1 - 1-dose 60+ series) Respiratory Syncytial Virus (RSV) or age 60 yrs+ (1 - 1-dose 60+ series) [facility] Start: 2020 RSV Vaccine (1 - 1-dose 60+ series) RSV Vaccine (1 - 1-dose 60+ series) [facility] Start: 08-19-2020 Diabetic foot examination Diabetic foot exam [facility] Start: 12-12-2018 Hemoglobin A1c/Hemoglobin.total in Blood HBA1C [facility] Start: 08-29-2016 Urine screening for protein Diabetic Alb to Cr ratio (uACR) test [facility] Start: 08-09-2016 GFR test (Diabetes, CKD 3-4, OR last GFR 15-59) GFR test (Diabetes, CKD 3-4, OR last GFR 15-59) [facility] Start: 07-18-2016 Lipid panel Lipids [facility] Start: 05-05-2016 Hemoglobin A1c measurement A1C test (Diabetic or Prediabetic) [facility] Start: 2015 PROSTATE CANCER SCREENING DISCUSSION PROSTATE CANCER SCREENING DISCUSSION [facility] Start: 07-27-2015 Glaucoma screening Diabetic retinal exam [facility] Start: 2010 Shingles vaccine (1 of 2) Shingles vaccine (1 of 2) [facility] Start: 2010 SHINGRIX VACCINE (1 of 2) SHINGRIX VACCINE (1 of 2) [facility] Start: 2005 COLOGUARD (FIT-DNA) COLOGUARD (FIT-D NA) [facility] Start: 2005 Colonoscopy COLONOSCOPY [facility] Start: 2005 COLORECTAL CANCER SCREENING COLORECTAL CANCER SCREENING [facility] Start: [address] COLONOGRAPHY [facility] Start: 2005 FECAL OCCULT BLOOD FECAL OCCULT BLOO D [facility] Start: 2005 Screening for malignant neoplasm of colon [facility] Start: 2005 SIGMOIDOSCOPY SIGMOIDOSCOPY [facility] Start: 10-07-2000 Urine microalbumin profile DTaP,Tdap,Td Vaccine (1 - Tdap) [facility] Start: 1990 Zoledronic acid therapy Alpha-1 Antitrypsin Deficiency Screening [facility] Start: 1979 DTaP/Tdap/Td vaccine (1 - Tdap) DTaP/Tdap/Td vaccine (1 - Tdap) [employer] Start: 1979 Urine microalbumin profile [facility] Start: 1978 ANNUAL PCP TEAM CHRONIC DISEASE VISIT ANNUAL PCP TEAM CHRONIC DISEASE VISIT [facility] Start: 1978 BP CONTROLLED (<130/80) BP CONTROLLED (<130/80) [facility] Start: 1978 Hepatitis B surface antibody level LDL CHOLESTEROL [facility] Start: 1978 HEPATITIS C SCREENING HEPATITIS C [facility] Start: 1978 Hepatitis C screening Hepatitis C [facility] Start: 1978 HIV SCREENING HIV SCREENING [facility] Start: 1978 HIV screening HIV Screening [facility] Start: 1975 HIV screening HIV screen [employer] Start: 1972 Depression Monitoring Depression Mon itoring [employer] Start: 1970 3 comp foot exam completed DIABETIC FOOT EXAM [facility] Start: 1970 Diabetic foot examination Diabetic Foot Exam [facility] Start: 1970 Glaucoma screening Dilated Retinal E xam [facility] Start: 1970 Hepatitis B screening URINE ALBUMIN:CREATININE RATIO [facility] Start: 1970 Hepatitis C antibody , confirmatory test DILATED RETINAL EXAM [facility] Adult NIV/Positive Airway Pressure Adult NIV/Positive Airway Pressure Respiratory Care Routine Every 4hr until discontinued starting 11/30/2023 [employer] Comment on above: Every 4hr until disc ontinued starting 11/30/2023 Continuous pulse oximetry Pulse oximetry, continuous Respiratory Care Routine Every 4hr until discontinued starting 12/03/2023 [employer] Comment on above: Every 4hr until disc ontinued starting 12/03/2023 Glucose [Mass/volume ] in Serum or Plasma [employer] Comment on above: 4X Daily (AC & HS) u ntil discontinued starting 11/30/2023 As Needed until disc ontinued starting 11/30/2023 Hemoglobin A1c/Hemoglobin.total in Blood HGB A1C Lab Routine Type 2 diabetes mellitus with other specified complication, with long-term current use of insulin (HCC) Pre-op evaluation 01/21/2022 9:30 AM EDT [facility] Work Phone: End: 12-23-2023 Hemoglobin and Hematocrit Hemoglobin and Hematocrit Lab Routine Every Other Day for 10 Occurrences starting 12/05/2023 until 12/23/2023, 2 completed [employer] Comment on above: Every Other Day for 10 Occurrences starting 12/05/2023 until 12/23/2023, 2 completed Oxygen therapy [Minimum Data Set] Initiate Oxygen Therapy Protocol Respiratory Care Routine As Needed until discontinued starting 11/29/2023 [employer] Comment on above: As Needed until disc ontinued starting 11/29/2023 End: 12-23-2023 Platelets [#/volume] in Blood Platelet Count Lab Routine Every Other Day for 10 Occurrences starting 12/05/2023 until 12/23/2023, 2 completed [employer] Comment on above: Every Other Day for 10 Occurrences starting 12/05/2023 until 12/23/2023, 2 completed End: 12-14-2023 Protime-INR Protime-INR Lab Routine Daily for 7 Days starting 12/08/2023 until 12/14/2023, 1 completed [employer] Comment on above: Daily for 7 Days sta rting 12/08/2023 until 12/14/2023, 1 completed End: 11-30-2023 MEDICAL VIDEOGRAPHER clinical swallow evaluation MEDICAL VIDEOGRAPHER clinical swallow evaluation MEDICAL VIDEOGRAPHER Routine One Time for 1 Occurrences starting 11/30/2023 until 11/30/2023 [employer] Work Phone: Comment on above: One Time for 1 Occur rences starting 11/30/2023 until 11/30/2023 End: 11-30-2023 SPECIMEN REJECTION [facility] Comment on above: Once for 1 Occurrenc es starting 11/30/2023 until 11/30/2023 End: 11-30-2023 Speech and language therapy regime MEDICAL VIDEOGRAPHER eval and treat MEDICAL VIDEOGRAPHER Routine One Time for 1 Occurrences starting 11/30/2023 until 11/30/2023 [facility] Comment on above: One Time for 1 Occur rences starting 11/30/2023 until 11/30/2023 STAPH AUREUS PCR STAPH AUREUS PC R Lab Routine 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) Ordered: 01/21/2022 [facility] Work Phone: Comment on above: Ordered: 01/21/2022 [facility] Immunizations Immunization Date Immunization Notes Care Provider [facility] 07-19-2021 influenza virus vacc ine, unspecified formulation Wesley Rose MD Work Phone: [facility] 07-07-2020 Influenza, injectabl e, Madin Trinity Canine Kidney, preservative free, quadrivalent Harris Faustin MD Work Phone: [facility] 08-01-2019 influenza virus vacc ine, unspecified formulation Harris Faustin MD Work Phone: [facility] 08-10-2018 influenza, injectabl e, quadrivalent, preservative free Harris Faustin MD Work Phone: [facility] 07-24-2018 Influenza, injectabl e, Madin [place] Canine Kidney, preservative free, quadrivalent Harris Faustin MD Work Phone: [facility] 09-10-2017 influenza virus vacc ine, unspecified formulation Harris Faustin MD Work Phone: [facility] 08-11-2017 pneumococcal polysaccharide vaccine, 23 valent Harris Faustin MD Work Phone: [facility] 08-05-2016 influenza virus vacc ine, unspecified formulation Harris Faustin MD Work Phone: [facility] 11-13-2015 pneumococcal conjuga te vaccine, 13 valent Harris Faustin MD Work Phone: [facility] 07-18-2015 influenza virus vacc ine, unspecified formulation Mth 1 [facility] 07-18-2015 influenza virus vacc ine, whole virus Harris Faustin MD Work Phone: [facility] 07-06-2015 influenza, high dose seasonal, preservative-free Harris Faustin MD Work Phone: [facility] 09-13-2014 influenza, injectabl e, quadrivalent, preservative free Harris Faustin MD Work Phone: [facility] 06-25-2013 influenza, seasonal, injectable, preservative free Harris Faustin MD Work Phone: [facility] 06-17-2012 influenza, seasonal, injectable Harris Faustin MD Work Phone: [facility] 09-11-2010 pneumococcal polysaccharide vaccine, 23 valent Harris Faustin MD Work Phone: [facility] Payers Date Payer Category Payer Medicaid 2021 Medicare [id number] 2021 Medicare [id number] 2021 Unknown [id number] 2019 Unknown THANIA [facility] THANIA MEDIHARVEY O [id number] 2019-Present [phone] [address] [place] [address] [facility] [id number] .[id number] 2018 Unknown [id number] 1960 Unknown [id number] 2..840.1.128080.3.579.2.6 47 1960 Unknown [id number] 2..840.1.042251.3.579.2.5 93 1960 Unknown [id number] 2.16.840.1.464330.3.579.2.5 93 1960 Unknown [id number] 2.16.840.1.636640.3.579.2.5 93 1960 Unknown [id number] 2.16.840.1.863426.3.579.2.5 93 1960 Unknown [id number] 2.16.840.1.266406.3.579.2.5 93 1960 Unknown [id number] 2.16.840.1.376582.3.579.2.5 93 1960 Unknown [id number] 2.16.840.1.001662.3.579.2.5 93 1960 Unknown [id number] 2.16.840.1.372302.3.579.2.5 93 1960 Unknown [id number] 2.16.840.1.091803.3.579.2.5 93 1960 Unknown [id number] 2.16.840.1.583770.3.579.2.5 93 1960 Unknown [id number] 2.16.840.1.352952.3.579.2.5 93 1960 Unknown [id number] 2.16.840.1.038339.3.579.2.5 93 1960 Unknown [id number] 2.16.840.1.827369.3.579.2.5 93 1960 Unknown [id number] 2.16.840.1.851251.3.579.2.5 93 1960 Unknown [id number] 2.16.840.1.115713.3.579.2.5 1960 Unknown [id number] 2.16.840.1.457184.3.579.2.5 93 1960 Unknown [id number] 2.16.840.1.519467.3.579.2.5 93 1960 Unknown [id number] 2.16.840.1.906153.3.579.2.5 93 1960 Unknown [id number] 2.16.840.1.851342.3.579.2.5 93 1960 Unknown [id number] 2.16.840.1.958817.3.579.2.1 96 1960 Unknown [id number] 2.16.840.1.751162.3.579.2.1 286 1960 Unknown [id number] 2.16.840.1.682499.3.579.2.1 286 1960 Unknown [id number] 2.16.840.1.768776.3.579.2.1 286 1960 Unknown [id number] 2.16.840.1.226908.3.579.2.1 286 1960 Unknown [id number] 2.16.840.1.623764.3.579.2.1 286 1960 Unknown [id number] 2.16.840.1.054400.3.579.2.1 286 1960 Unknown [id number] 2.16.840.1.511328.3.579.2.1 77 1960 Unknown [id number] 2.16.840.1.632894.3.579.2.1 73 1960 Unknown [id number] 2.16.840.1.635840.3.579.2.1 73 1960 Unknown [id number] 2.16.840.1.481511.3.579.2.1 75 1960 Unknown [id number] 2.16.840.1.467125.3.579.2.1 259 1960 Unknown [id number] 2.16.840.1.153162.3.579.2.1 259 1960 Unknown [id number] 2.16.840.1.106979.3.579.2.1 259 1959 Private Health Insurance [id number] Unknown [id number] 2.16.840.1.692054.19 Social History Date Type Detail Facility Start: 05-31-2013 End: 10-27-2023 Tobacco smoking status NHIS Never smoked tobacco [facility] Work Phone: Start: 05-31-2013 End: 10-27-2023 Tobacco use and exposure Former smokeless tobacco user [facility] Work Phone: End: 09-17-2015 History of tobacco use Chews Tobacco [facility] Work Phone: Start: 06-15-2021 End: 11-06-2023 Alcohol intake Current non-drinker of alcohol (finding) [facility] Start: 01-04-2020 History SDOH Alcohol Frequency 1 [facility] Start: 01-04-2020 Tobacco Comment 30 years [facility] Start: 1960 Sex Assigned At Male C [facility] Start: 05-31-2013 End: 09-19-2023 Tobacco use and exposure User of smokeless tobacco [facility] Work Phone: Start: 01-11-2022 End: 01-21-2022 Exposure to SARS-CoV-2 (event) Not sure [facility] Start: 01-04-2020 End: 11-29-2023 Sex Assigned At [facility] History of tobacco use Cigarette Smoker C [facility] Work Phone: Start: 01-04-2020 End: 11-29-2023 History of Social function [facility] How often to you hav e a drink containing alcohol? Never [facility] Average Number of Drinks Not on file [facility] Start: 08-16-2019 Gender identity Identifies as male gender (finding) [facility] Start: 08-16-2019 Sexual orientation Heterosexual (fin oneal) [facility] Start: 10-28-2023 End: 12-03-2023 Alcohol intake Lifetime non-drinker (finding) [employer] Has the [employer], or [employer] threatened to shut off services in your home in past 12Mo No [employer] (I/We) worried wheth er (my/our) food would run out before (I/we) got money to buy more. Never true [employer] NEGATED: Highlighted rowStart: HERNÁN History of tobacco use Passive smoker [employer] Medical Equipment Procedure Code Equipment Code Equipment Origin al Text Equipment Identifier Dates Ipg Activa Sc Db s Dual Extn - [id number] Start: 06-30-2013 Comment on above: Description: ACTIVA SC Multi-program Leonor rostimulator for deep Brain Stimulation Neurostimulator Activa Sc 0-10.5v 2-250hz 0-25.5ma 2.4inx2.2in .4in - [id number] Start: 07-24-2016 Neurostimulator Activa Sc 0-10.5v 2-250hz 0-25.5ma 2.4inx2.2in .4in - [id number] Start: 06-30-2019 Neurostimulator Activa Sc 0-10.5v 2-250hz 0-25.5ma 2.4inx2.2in .4in - [id number] Start: 01-30-2022 [id number] Start: 06-29-2014 Comment on above: Use as directed sq bid Clinical Notes 03-22-2021 to 01-13-2024 Janneth Nelson RN - 12/08/2023 6:28 PM Janneth Dennison RN - 12/08/2023 6:01 PM Lori Fernandes MD - 12/08/2023 3:35 PM Pete Lamb PTA - 12/08/2023 2:02 PM Malorie Instr - CHERIE Note Date & Type Note Facility 01-13-2024 Note [facility] - [facility] Reason for Consultation: Syncope, s/p loop implant 01/09/23 PMHx: CAD (2019 cath showed non-obstructive CAD with endothelial dysfunction to RCA), chronic diastolic heart failure, HTN, DM type II, prothrombin gene mutation and hx of DVT/PE on coumadin, CVA x4, PAM, parkinson's vs myesthenia gravis s/p deep brain stimulator 01/13/24 He c/o being in and out of the hospital recently for multiple complaints. Likely had another stroke in October,. He was started on warfarin per neuro-interventional stroke team. He c/o worsened leg swelling and weight gain. He's up 27# in 3 months. He has been experiencing chest pains. Middle/left, radiates up to his collar bone/neck and down his left arm. Recent stress test 10/2023 was negative. He is sleeping in a recliner, he hasn't noticed orthopnea. He has noticed his urine output has decreased. He recently underwent a tilt table test. He went unresponsive during this. He was sent to [facility] for neuro eval. He continues to have issues with chest pain. He also has pain else where. He is on opiods and muscle relaxers. He is getting a new pain specialist. She is following with neurology. Work up for multiple dx. 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 His mobility has been limited. Unable to walk like he use to, he ambulates with a walker. He is having worsening issues with falls. 10/21/23 Telephone apt today for follow up [facility] for chest pain. He was seen as [...] reveals no events. Had recent ECHO at [facility] which was normal. LOOP: 08/19/23: Here for follow up Continues to [...] Dr. Rodriguez HPI: Andry Pierre is a 63 y.o. year old with past medical history [...] Connections: Not on file Intimate Partner Violence: Unknown (11/27/2023) [facility] Safety [facility] Environment Fear of Current or Ex-Partner: Not on file Emotionally Abused: Not on file Physically Abused: Not on file Sexually Abused: Not on file Physically or Sexually Abused: Not on file Depression: Not on file Housing Stability: Not on file Utilities: Not on file Meds: Current (more content not included)... [facility] 12-08-2023 History of Present illness Narrative Called report to Bee at [facility] at [phone]. Answered all questions and advised that the patient will be leaving here around 8:00 PM tonight. Attempted to call report to [facility] at [phone]. Was on hold for over 10 minutes. Images from the original note were not included. [facility] Office: [phone] Alberto Rice DO, Luciano Murphy DO, Humza James DO, Jc Maria DO, Nancy Paz MD, Naz Cruz MD, Demetrio Patel MD, Hortensia Maynard MD, Filiberto Vizcaino MD, Polly Ramos MD, Julia Blanco MD, Bibi Kim DO, Yaneli Lugo MD, Chepe Pfeiffer MD, Andry Rice DO, Jamia Nur MD, Obi Alford DO, Jacquelyn Roper MD, Almita Moya MD, Jackie Rivas MD, Kylie Morales MD, Pasha Roy MD, Daniel Swenson MD, Marvin Sneed MD, Abdirahman Hunt MD, Da Moore MD, Geneva Casiano MD, Matthew Perez, DO, Tk Connor DO, Jess Parker MD, Garett Valentine MD, Rosalia Mobley, DIRECTOR OF STUDENT FINANCIAL AID, Criss Gray, DIRECTOR OF STUDENT FINANCIAL AID, Lefty Matute, DIRECTOR OF STUDENT FINANCIAL AID, Brittny Quinones, [facility], Kacey Meeks, DIRECTOR OF STUDENT FINANCIAL AID, Sugey Barillas, DIRECTOR OF STUDENT FINANCIAL AID, Mary Jo Bonner, DIRECTOR OF STUDENT FINANCIAL AID, Kathy Granados, DIRECTOR OF STUDENT FINANCIAL AID, Sigrid Velásquez, DIRECTOR OF STUDENT FINANCIAL AID, Janine Turpin, PA-C, Sue Willams PA-C, Savi Iqbal, DIRECTOR OF STUDENT FINANCIAL AID, Beckie Mello, DIRECTOR OF STUDENT FINANCIAL AID, Nora Mace, DIRECTOR OF STUDENT FINANCIAL AID, Jyoti Rojo, VENDING TECHNICIAN, Ronda Sellers, DIRECTOR OF STUDENT FINANCIAL AID, Janell Hoyt, DIRECTOR OF STUDENT FINANCIAL AID, Caryl Gonzalez, DIRECTOR OF STUDENT FINANCIAL AID [facility] IN-PATIENT SERVICE [facility] Progress Note 12/08/2023 3:35 PM Name: Andry Pierre Acct: [id number] Room: [address] [place] [address] Day: 9 Admit Date: 11/29/2023 8:06 PM PCP: Say Mccormick MD Code Status: Full Code Subjective: C/C: chest pain and dizziness Interval History Status: not changed. NAEO Doing well this morning without complaints Bp stable today. Peer to peer denied ARU 12/04/23 Pending Placement to [facility] Brief History: Per documentation Andry Pierre is a 63 y.o. 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 and is admitted to the hospital for the management of AMS (altered mental status). Patient transferred from [place] after undergoing tilt table evaluation for concern for orthostasis on 11/28/2022 with history of recurrent episodes of dizziness with history of stroke, complicated history. tilt table test complicated by worsening acute symptoms of dizziness with chest pain with altered sensorium. Although tilt test unremarkable for orthostasis, patient was evaluated in ED with acute symptoms and recommended admission pending transfer to [facility] for neurology evaluation. Unfortunately with bed availability transfer was delayed until today. Patient with multiple somatic complaints. Describes worsening sciatica with increasing leg weakness with worsening pain status post recent fallNovember 24 with worsening radicular symptoms and neck and lumbar spine. He does describe frequent episodes of chest pain 5-6 times daily lasting minutes midsternum with crushing type symptoms radiating to his neck. Describes occasional nausea . Unintentional weight loss of 20 pounds in the past month with poor p.o. intake. Constant neck pain with recurrent headaches. Intermittent choking episodes with dysphagia. Recurrent episodes of palpitations daily lasting minutes sometimes associated with the chest pain, sometimes not with occasional shortness of breath While in [place] ED patient did develop symptomatic hypoglycemia with blood sugars in the 50s with symptoms of feeling funny . 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 Subsequently returned status post 11/24 with worsening back pain, weakness with atypical chest pain, shortness of breath. Medications: Allergies: Allergies Allergen Reactions Beta Adrenergic Blockers Other reaction(s): Headache Hydralazine Headache, nausea, sick Neuromuscular Blocking Agents [Neuromuscular Blocking Agents] After neurotin was prescribed had a stroke Neurontin [Gabapentin] Valium Was on the ground after took it Other Nausea And Vomiting Headache and nausea with some beta blockers Current Meds: Scheduled Meds: cloNIDine 0.2 mg Oral BID rivastigmine 1 patch TransDERmal Daily DULoxetine 20 mg Oral Daily insulin glargine 2 Units SubCUTAneous Daily atorvastatin 40 mg Oral Daily [Held by provider] metFORMIN 500 mg Oral BID WC montelukast 10 mg Oral Daily NIFEdipine 90 mg Oral Daily pantoprazole 40 mg Oral Daily topiramate 100 mg Oral BID warfarin placeholder: dosing by pharmacy Other RX Placeholder insulin lispro 0-4 Units SubCUTAneous TID insulin lispro 0-4 Units SubCUTAneous Nightly valsartan 160 mg Oral Daily sodium chloride flush 5-40 mL IntraVENous 2 times per day Vitamin D 5,000 Units Oral Daily Continuous Infusions: dextrose sodium chloride PRN Meds: morphine, cyclobenzaprine, labetalol, glucose, dextrose bolus OR dextrose bolus, glucagon (rDNA), dextrose, sodium chloride flush, sodium chloride, potassium chloride OR potassium alternative oral replacement OR potassium chloride, magnesium sulfate, ondansetron OR ondansetron, polyethylene glycol, acetaminophen OR acetaminophen Data: Past Medical History: has a past medical history of Arthritis, Asthma, CHF (congestive heart failure) ([facility]), CKD (chronic kidney disease) stage 2, GFR 60-89 ml/min, Clotting disorder ([facility]), Congenital heart disease, COPD (chronic obstructive pulmonary disease) ([facility]), Depression, Emphysema of lung ([facility]), GERD (gastroesophageal reflux disease), GERD (gastroesophageal reflux disease), Gout, Headache(784.0), Hernia, Hernia, History of blood clots, History of DVT (deep vein thrombosis), Hyperlipidemia, Insomnia, Irritable bowel syndrome, Kidney stones, Lumbar degenerative disc disease, Lumbar radiculopathy, Obesity, PAM (obstructive sleep apnea), Parkinson disease, Parkinson's disease, Post traumatic stress disorder, Renal disease, Rheumatoid arthritis ([facility]), Stroke ([facility]), Stroke risk, Tracheostomy in place ([facility]), Tremors of nervous system, Type II or unspecified type diabetes mellitus without mention of complication, not stated as uncontrolled, Uncontrolled hypertension, and Unspecified cerebral artery occlusion with cerebral infarction. Social History: reports that he has never smoked. He has never been exposed to tobacco smoke. He has quit using smokeless tobacco. His smokeless tobacco use included chew. He reports that he does not drink alcohol and does not use drugs. Family History: Family History Problem Relation Age of Onset Heart Disease Mother Stroke Mother Arthritis Mother High Blood Pressure Mother Heart Disease Father Stroke Father Heart Attack Father High Blood Pressure Father Cancer Paternal Grandfather Substance Abuse Sister High Blood Pressure Sister Substance Abuse Brother High Blood Pressure Maternal Grandmother Heart Disease Maternal Grandmother High Blood Pressure Paternal Grandmother Heart Disease Paternal Grandmother Vitals: BP 138/83 Pulse 77 Temp 97.6 F (36.4 C) (Oral) Resp 20 Ht 1.803 m (5' 11 ) Wt 133.2 kg (293 lb 10.4 oz) SpO2 98% BMI 40.96 kg/m Temp (24hrs), Av F (36.7 C), Min:97.6 F (36.4 C), Max:98.3 F (36.8 C) Recent Labs 12/07/23 1800 12/07/23201112/08/23 0821 12/08/23 1250 POCGLU 154* 193* 137* 167* I/O (24Hr): Intake/Output Summary (Last 24 hours) at 12/08/2023 1535 Last data filed at 12/08/2023 0859 Gross per 24 hour Intake 1460 ml Output 2075 ml Net -615 ml Labs: Hematology: Recent Labs 12/06/23 0806 12/07/23 0507 12/08/23 0319 HGB -- 14.0 -- HCT -- 44.1 -- PLT -- 252 -- INR 2.7 3.2 3.3 Chemistry: No results for input(s): NA , K , CL , CO2 , GLUCOSE , BUN , CREATININE , MG , ANIONGAP , LABGLOM , GFRAA , CALCIUM , CAION , PHOS , PSA , PROBNP , TROPHS , CKTOTAL , CKMB , CKMBINDEX , MYOGLOBIN , DIGOXIN , LACTACIDWB in the last 72 hours. Recent Labs 12/07/23 0750 12/07/23 1203 12/07/23 1800 12/07/23201112/08/23 0821 12/08/23 1250 POCGLU 132* 145* 154* 193* 137* 167* ABG: Lab Results Component Value Date/Time PH 7.413 08/22/2011 03:20 PM PCO2 41.5 08/22/2011 03:20 PM PO2ART 92.5 08/22/2011 03:20 PM UPY2PPM 26.0 08/22/2011 03:20 PM NBEA NOT REPORTED 08/22/2011 03:20 PM PBEA 1.8 08/22/2011 03:20 PM V4ENKKAS 95.6 08/22/2011 03:20 PM FIO2 INFORMATION NOT PROVIDED 11/30/2023 12:05 AM Lab Results Component Value Date/Time SPECIAL NOT REPORTED 10/20/2012 10:15 AM SPECIAL NOT REPORTED 10/20/2012 10:15 AM Lab Results Component Value Date/Time CULTURE NO GROWTH 10/20/2012 10:15 AM CULTURE 10/20/2012 10:15 AM Performed at [facility] [address] [place] [id number] Radiology: XR CHEST (2 VW) Result Date: 11/29/2023 No acute chest process. No acute intracranial abnormality. Stable metallic probe inserted via the left frontal approach with the tip in the left thalamic area. No obvious complications. CT Head WO Contrast Result Date: 11/29/2023 No acute chest process. No acute intracranial abnormality. Stable metallic probe inserted via the left frontal approach with the tip in the left thalamic area. No obvious complications. Physical Examination: General appearance: alert, cooperative and no distress Mental Status: oriented to person, place and time and normal affect Lungs: clear to auscultation bilaterally, normal effort Heart: regular rate and rhythm, no murmur Abdomen: soft, nontender, nondistended Assessment: Hospital Problems Last Modified POA * (Principal) AMS (altered mental status) 11/28/2023 Yes Lumbar degenerative disc disease (Chronic) 11/30/2023 Yes Diabetic neuropathy (HCC) (Chronic) 11/30/2023 Yes Sleep apnea, obstructive (Chronic) 11/30/2023 Yes Overview Signed 01/25/2014 12:25 PM by Servando Diego MD S/p Tracheotomy Syncope and collapse 12/01/2023 Yes Chronic kidney disease (CKD), stage III (moderate) (HCC) 11/30/2023 Yes Generalized weakness 12/02/2023 Yes CHF (congestive heart failure) (HCC) 11/30/2023 Yes Uncontrolled hypertension 11/30/2023 Yes Dysphagia 11/30/2023 Yes GERD (gastroesophageal reflux disease) 11/30/2023 Yes S/P deep brain stimulator placement 11/30/2023 Yes Spondylarthrosis 11/30/2023 Yes DM type 2 with diabetic peripheral neuropathy (HCC) 11/30/2023 Yes Altered mental status 11/29/2023 Yes Multiple falls 11/30/2023 Yes Essential tremor 11/30/2023 Yes Staring episodes 12/01/2023 Yes Altered awareness, transient 12/01/2023 Yes Acute encephalopathy 12/02/2023 Yes Neuropathy 12/03/2023 Yes Principal Problem: AMS (altered mental status) Active Problems: Lumbar degenerative disc disease Diabetic neuropathy (HCC) Sleep apnea, obstructive Syncope and collapse Chronic kidney disease (CKD), stage III (moderate) (HCC) Generalized weakness CHF (congestive heart failure) (HCC) Uncontrolled hypertension Dysphagia GERD (gastroesophageal reflux disease) S/P deep brain stimulator placement 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 * Plan: Acute encephalopathy on admission-resolved Uncontrolled hypertension-valsartan dose was increased yesterday, continue with that. Continue Procardia. Clonidine at home dose Acute on chronic weakness of lower extremities with debility-nonspecific symptoms. Follow neurology and neurosurgery o/p. Pt needs pain mgmt o/p Chest pain-has been chronic. No pleuritic component. Follow cardiology plan we were consulted yesterday. No hypoxia no shortness of breath Diabetes mellitus-A1c was 8.8 but had hypoglycemia yesterday. Currently sugars are increasing, will restart Lantus but at only 2 units and then adjust accordingly Recurrent [id number] neurology plan History of prothrombin gene mutation with prior DVT-continue Coumadin CKD stage III-continue to monitor creatinine and will need follow-up with nephrology/PCP PMA on CPAP Hx of dvt: on coumadin. Pharmacy managing Discharge planning after the above workup Lori Leblanc MD 12/08/2023 3:35 PM Physical Therapy Facility/Department: [address] [place] Physical Therapy Treatment Note Name: Andry Pierre : 1960 Date of Service: 12/08/2023 Discharge Recommendations: Patient would benefit from continued therapy after discharge PT Equipment Recommendations Equipment Needed: No Other: Pt owns walker, cane and walker Patient Diagnosis(es): There were no encounter diagnoses. Past Medical History: has a past medical history of Arthritis, Asthma, CHF (congestive heart failure) ([facility]), CKD (chronic kidney disease) stage 2, GFR 60-89 ml/min, Clotting disorder ([facility]), Congenital heart disease, COPD (chronic obstructive pulmonary disease) ([facility]), Depression, Emphysema of lung ([facility]), GERD (gastroesophageal reflux disease), GERD (gastroesophageal reflux disease), Gout, Headache(784.0), Hernia, Hernia, History of blood clots, History of DVT (deep vein thrombosis), Hyperlipidemia, Insomnia, Irritable bowel syndrome, Kidney stones, Lumbar degenerative disc disease, Lumbar radiculopathy, Obesity, PAM (obstructive sleep apnea), Parkinson disease, Parkinson's disease, Post traumatic stress disorder, Renal disease, Rheumatoid arthritis ([facility]), Stroke ([facility]), Stroke risk, Tracheostomy in place ([facility]), Tremors of nervous system, Type II or unspecified type diabetes mellitus without mention of complication, not stated as uncontrolled, Uncontrolled hypertension, and Unspecified cerebral artery occlusion with cerebral infarction. Past Surgical History: has a past surgical history that includes Appendectomy; Ankle surgery (Left); Carpal tunnel release (Right); Neck surgery; sinus surgery (10/06/2012); Knee arthroscopy (Right); brain surgery; Cardiac catheterization; tracheostomy (07/06/2013); Deep brain stimulator placement; Dialysis fistula creation (03/06/2014); Upper gastrointestinal endoscopy (05/03/2011); Colonoscopy (06/03/2003); hernia repair (Right); Upper gastrointestinal endoscopy (); Uvulopalatopharygoplasty; Colonoscopy (); and Cholecystectomy. Assessment Body Structures, Functions, Activity Limitations Requiring Skilled Therapeutic Intervention: Decreased functional mobility ;Decreased tolerance to work activity;Decreased strength;Decreased endurance;Decreased balance;Increased pain Assessment: Pt demonstrates sit to stand requiring ModA x 2 with RW. Pt was able to stand for ~3 mins. Pt attempted to amb but couldn't d/t LLE pain. Pt will continue to benefit from PT intervention to progress functional abilty and mobility needed to regain prior level of safety and function Therapy Prognosis: Good Decision Making: Medium Complexity Activity Tolerance Activity Tolerance: Patient limited by endurance;Patient limited by pain;Patient limited by fatigue Plan Physical Therapy Plan General Plan: (5-6/wks) Current Treatment Recommendations: Strengthening, Balance training, Functional mobility training, Transfer training, Endurance training, Gait training, Neuromuscular re-education, Stair training, Therapeutic activities, Home exercise program Additional Comments: Progress activity as indicated and tolerated due to fluccuating abilies Safety Devices Type of Devices: Patient at risk for falls, Left in chair, Gait belt, Call light within reach, Chair alarm in place, Telesitter in use Restraints Restraints Initially in Place: No Restrictions Restrictions/Precautions Restrictions/Precautions: Up as Tolerated, Fall Risk, General Precautions Required Braces or Orthoses?: No Position Activity Restriction Other position/activity restrictions: Up as tolerated, orthostatic checks . Pt report progressive LE weakness more frequent falls, activity as tolerated up with assist , pt had DBS in place Subjective General Patient assessed for rehabilitation services?: Yes Response To Previous Treatment: Patient with no complaints from previous session. Family / Caregiver Present: Yes (wfie) Follows Commands: Within Functional Limits General Comment Comments: Pt retired to recliner at entry with call light in reach and positioned for comfort. Subjective Subjective: RN and pt agreeable to work with therapy. Resting in recliner at entry with present.. pt states having pain in LLE no pain rating given. pt was adjusted for comfort end of session. Cognition Orientation Overall Orientation Status: Within Functional Limits Orientation Level: Oriented X4 Cognition Overall Cognitive Status: WFL Objective Bed mobility Bed Mobility Comments: Pt in chair upon entry/exit, states he has been sleeping in chair while at hospital. Transfers Sit to Stand: Moderate Assistance;2 Person Assistance Stand to Sit: Moderate Assistance;2 Person Assistance Comment: pt reports having LLE pain while standing with RW. Ambulation Comments: Pt attempted but could not step no more then a foot fwd d/t knee pain. More Ambulation?: No Stairs/Curb Stairs?: No Balance Posture: Good Sitting - Static: Good Sitting - Dynamic: Good Standing - Static: Fair Comments: Standing balance assessed to RW, Sitting balance assessed to EOC. A/AROM Exercises: Seated LE exercise program: Long Arc Quads, hip abduction/adduction, heel/toe raises, and marches Reps 20 AM-PAC - Mobility AM-PAC Basic Mobility - Inpatient How much help is needed turning from your back to your side while in a flat bed without using bedrails?: None How much help is needed moving from lying on your back to sitting on the side of a flat bed without using bedrails?: A Little How much help is needed moving to and from a bed to a chair?: A Lot How much help is needed standing up from a chair using your arms?: A Lot How much help is needed walking in hospital room?: A Lot How much help is needed climbing 3-5 steps with a railing?: A Lot AM-PAC Inpatient Mobility Raw Score : 15 AM-PAC Inpatient T-Scale Score : 39.45 Mobility Inpatient CMS 0-100% Score: 57.7 Mobility Inpatient CMS G-Code Modifier : CK Goals Short Term Goals Time Frame for Short Term Goals: 14 visits Short Term Goal 1: Pt to ambulate 50 ft mod I with least AD Short Term Goal 2: Pt to transfer from alternate surface heights with Min A demonstrating safety with AD Short Term Goal 3: Pt to ascend/descend 4 steps with Mod I and rigth railing Short Term Goal 4: Pt to be provided verbal, written and practical instruction in bilateral LE ROM exercises to improve general strength and activity tolerance. Patient Goals Patient Goals : To return home Education Patient Education Education Given To: Patient Education Provided: Role of Therapy;Plan of Care;Transfer Training Education Method: Verbal Barriers to Learning: None Education Outcome: Verbalized understanding;Continued education needed Therapy Time Individual Concurrent Group Co-treatment Time In 1331 Time Out 1349 Minutes 18 Timed Code Treatment Minutes: 18 Minutes Pete Boudreaux PTA Pharmacy Note Warfarin Consult follow-up Warfarin dose prior to admission: 17.5 mg Sun, 15 mg all other days (per medication management clinic in [place], last visit 11/11; clinic noted recent dose decrease) Warfarin indication: h/o DVT Target INR range: 2-3 Recent Labs 12/08/23 0319 INR 3.3 Recent Labs 12/07/23 0507 HGB 14.0 HCT 44.1 PLT 252 Current warfarin drug-drug interactions: / Date INR Dose 11/30 3 10 mg 12/01 2.8 15 mg 12/02 2.8 15 mg 12/03 3.3 Held 3 10 mg 12/04 2.6 10 mg 12/05 2.7 10 mg 12/06 3.2 Held 12/07 3.3 Notes: - INR supratherapeutic and trending up, will HOLD Warfain today Daily PT/INR while inpatient. Nolan Mccarty PharmD, 12/08/2023 11:58 AM Pharmacy Note Warfarin Consult follow-up Warfarin dose prior to admission: 17.5 mg Sun, 15 mg all other days (per medication management clinic in [place], last visit 11/11; clinic noted recent dose decrease) Warfarin indication: h/o DVT Target INR range: 2-3 Recent Labs 12/07/23 0507 INR 3.2 Recent Labs 12/05/23 0513 12/07/23 0507 HGB 13.1 14.0 HCT 42.9 44.1 PLT 194 252 Current warfarin drug-drug interactions: / Date INR Dose 11/30 3 10 mg 12/01 2.8 15 mg 12/02 2.8 15 mg 12/03 3.3 Held 3 10 mg 12/04 2.6 10 mg 12/05 2.7 10 mg 12/06 3.2 Notes: - INR supratherapeutic, will HOLD Warfain today Daily PT/INR while inpatient. Nolan Mccarty PharmD, 12/07/2023 9:32 AM Images from the original note were not included. [facility] Office: [phone] Alberto Rice DO, Luciano Murphy DO, Humza James DO, Jc Maria DO, Nancy Paz MD, Naz Cruz MD, Demetrio Patel MD, Hortensia Maynard MD, Filiberto Vizcaino MD, Polly Ramos MD, uJlia Blanco MD, Bibi Kim DO, Yaneli Lugo MD, Chepe Pfeiffer MD, Andry Rice DO, Jamia Nur MD, Obi Alford DO, Jacquelyn Roper MD, Almita Moya MD, Jackie Rivas MD, Kylie Morales MD, Pasha Roy MD, Daniel Swenson MD, Marvin Sneed MD, Abdirahman Hunt MD, Da Moore MD, Geneva Casiano MD, Matthew Perez, DO, Tk Connor DO, Jess Parker MD, Garett Valentine MD, Rosalia Mobley, DIRECTOR OF STUDENT FINANCIAL AID, Criss Gray, DIRECTOR OF STUDENT FINANCIAL AID, Lefty Matute, DIRECTOR OF STUDENT FINANCIAL AID, Brittny Quinones, DNP, Kacey Meeks, DIRECTOR OF STUDENT FINANCIAL AID, Sugey Barillas, DIRECTOR OF STUDENT FINANCIAL AID, Mary Jo Bonner, DIRECTOR OF STUDENT FINANCIAL AID, Kathy Granados, DIRECTOR OF STUDENT FINANCIAL AID, Sigrid Velásquez, DIRECTOR OF STUDENT FINANCIAL AID, Janine Turpin, PA-C, Sue Willams, PA-C, Savi Iqbal, DIRECTOR OF STUDENT FINANCIAL AID, Beckie Mello, DIRECTOR OF STUDENT FINANCIAL AID, Nora Mace, DIRECTOR OF STUDENT FINANCIAL AID, Jyoti Rojo, VENDING TECHNICIAN, Ronda Sellers, DIRECTOR OF STUDENT FINANCIAL AID, Janell Hoyt, DIRECTOR OF STUDENT FINANCIAL AID, Caryl Gonzalez, DIRECTOR OF STUDENT FINANCIAL AID [facility] IN-PATIENT SERVICE [facility] Progress Note 12/07/2023 9:05 AM Name: Andry Pierre Acct: [id number] Room: 0143/0143-01 Day: 8 Admit Date: 11/29/2023 8:06 PM PCP: Say Mccormick MD Code Status: Full Code Subjective: C/C: chest pain and dizziness Interval History Status: not changed. NAEO Doing well this morning without complaints Bp stable today. Peer to peer denied ARU 12/04/23 Pending Placement to [facility] Brief History: Per documentation Andry Pierre is a 63 y.o. 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 and is admitted to the hospital for the management of AMS (altered mental status). Patient transferred from [place] after undergoing tilt table evaluation for concern for orthostasis on 11/28/2022 with history of recurrent episodes of dizziness with history of stroke, complicated history. tilt table test complicated by worsening acute symptoms of dizziness with chest pain with altered sensorium. Although tilt test unremarkable for orthostasis, patient was evaluated in ED with acute symptoms and recommended admission pending transfer to [facility] for neurology evaluation. Unfortunately with bed availability transfer was delayed until today. Patient with multiple somatic complaints. Describes worsening sciatica with increasing leg weakness with worsening pain status post recent fall November 24 with worsening radicular symptoms and neck and lumbar spine. He does describe frequent episodes of chest pain 5-6 times daily lasting minutes midsternum with crushing type symptoms radiating to his neck. Describes occasional nausea . Unintentional weight loss of 20 pounds in the past month with poor p.o. intake. Constant neck pain with recurrent headaches. Intermittent choking episodes with dysphagia. Recurrent episodes of palpitations daily lasting minutes sometimes associated with the chest pain, sometimes not with occasional shortness of breath While in [place] ED patient did develop symptomatic hypoglycemia with blood sugars in the 50s with symptoms of feeling funny . 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 Subsequently returned status post fall 11/24 with worsening back pain, weakness with atypical chest pain, shortness of breath. Medications: Allergies: Allergies Allergen Reactions Beta Adrenergic Blockers Other reaction(s): Headache Hydralazine Headache, nausea, sick Neuromuscular Blocking Agents [Neuromuscular Blocking Agents] After neurotin was prescribed had a stroke Neurontin [Gabapentin] Valium Was on the ground after took it Other Nausea And Vomiting Headache and nausea with some beta blockers Current Meds: Scheduled Meds: cloNIDine 0.2 mg Oral BID rivastigmine 1 patch TransDERmal Daily DULoxetine 20 mg Oral Daily insulin glargine 2 Units SubCUTAneous Daily atorvastatin 40 mg Oral Daily [Held by provider] metFORMIN 500 mg Oral BID WC montelukast 10 mg Oral Daily NIFEdipine 90 mg Oral Daily pantoprazole 40 mg Oral Daily topiramate 100 mg Oral BID warfarin placeholder: dosing by pharmacy Other RX Placeholder insulin lispro 0-4 Units SubCUTAneous TID insulin lispro 0-4 Units SubCUTAneous Nightly valsartan 160 mg Oral Daily sodium chloride flush 5-40 mL IntraVENous 2 times per day Vitamin D 5,000 Units Oral Daily Continuous Infusions: dextrose sodium chloride PRN Meds: cyclobenzaprine, labetalol, glucose, dextrose bolus OR dextrose bolus, glucagon (rDNA), dextrose, morphine, sodium chloride flush, sodium chloride, potassium chloride OR potassium alternative oral replacement OR potassium chloride, magnesium sulfate, ondansetron OR ondansetron, polyethylene glycol, acetaminophen OR acetaminophen Data: Past Medical History: has a past medical history of Arthritis, Asthma, CHF (congestive heart failure) ([facility]), CKD (chronic kidney disease) stage 2, GFR 60-89 ml/min, Clotting disorder ([facility]), Congenital heart disease, COPD (chronic obstructive pulmonary disease) ([facility]), Depression, Emphysema of lung ([facility]), GERD (gastroesophageal reflux disease), GERD (gastroesophageal reflux disease), Gout, Headache(784.0), Hernia, Hernia, History of blood clots, History of DVT (deep vein thrombosis), Hyperlipidemia, Insomnia, Irritable bowel syndrome, Kidney stones, Lumbar degenerative disc disease, Lumbar radiculopathy, Obesity, PAM (obstructive sleep apnea), Parkinson disease, Parkinson's disease, Post traumatic stress disorder, Renal disease, Rheumatoid arthritis ([facility]), Stroke ([facility]), Stroke risk, Tracheostomy in place ([facility]), Tremors of nervous system, Type II or unspecified type diabetes mellitus without mention of complication, not stated as uncontrolled, Uncontrolled hypertension, and Unspecified cerebral artery occlusion with cerebral infarction. Social History: reports that he has never smoked. He has never been exposed to tobacco smoke. He has quit using smokeless tobacco. His smokeless tobacco use included chew. He reports that he does not drink alcohol and does not use drugs. Family History: Family History Problem Relation Age of Onset Heart Disease Mother Stroke Mother Arthritis Mother High Blood Pressure Mother Heart Disease Father Stroke Father Heart Attack Father High Blood Pressure Father Cancer Paternal Grandfather Substance Abuse Sister High Blood Pressure Sister Substance Abuse Brother High Blood Pressure Maternal Grandmother Heart Disease Maternal Grandmother High Blood Pressure Paternal Grandmother Heart Disease Paternal Grandmother Vitals: BP (!) 165/94 Pulse 78 Temp 97.9 F (36.6 C) (Oral) Resp 16 Ht 1.803 m (5' 11 ) Wt 133.2 kg (293 lb 10.4 oz) SpO2 96% BMI 40.96 kg/m Temp (24hrs), Av.7 F (36.5 C), Min:97.5 F (36.4 C), Max:98 F (36.7 C) Recent Labs 12/06/23 1259 12/06/23 1550 12/06/23201412/07/23 0750 POCGLU 176* 190* 155* 132* I/O (24Hr): Intake/Output Summary (Last 24 hours) at 12/07/2023 0905 Last data filed at 12/07/2023 0430 Gross per 24 hour Intake 1320 ml Output 1800 ml Net -480 ml Labs: Hematology: Recent Labs 12/05/23 0513 12/06/23 0806 12/07/23 0507 HGB 13.1 -- 14.0 HCT 42.9 -- 44.1 PLT 194 -- 252 INR 2.6 2.7 3.2 Chemistry: No results for input(s): NA , K , CL , CO2 , GLUCOSE , BUN , CREATININE , MG , ANIONGAP , LABGLOM , GFRAA , CALCIUM , CAION , PHOS , PSA , PROBNP , TROPHS , CKTOTAL , CKMB , CKMBINDEX , MYOGLOBIN , DIGOXIN , LACTACIDWB in the last 72 hours. Recent Labs 12/05/23202412/06/23 0742 12/06/23 1259 12/06/23 1550 12/06/23201412/07/23 0750 POCGLU 160* 119* 176* 190* 155* 132* ABG: Lab Results Component Value Date/Time PH 7.413 08/22/2011 03:20 PM PCO2 41.5 08/22/2011 03:20 PM PO2ART 92.5 08/22/2011 03:20 PM XOI4MMY 26.0 08/22/2011 03:20 PM NBEA NOT REPORTED 08/22/2011 03:20 PM PBEA 1.8 08/22/2011 03:20 PM [id number] 95.6 08/22/2011 03:20 PM FIO2 INFORMATION NOT PROVIDED 11/30/2023 12:05 AM Lab Results Component Value Date/Time SPECIAL NOT REPORTED 10/20/2012 10:15 AM SPECIAL NOT REPORTED 10/20/2012 10:15 AM Lab Results Component Value Date/Time CULTURE NO GROWTH 10/20/2012 10:15 AM CULTURE 10/20/2012 10:15 AM Performed at [facility] [address] [id number] Radiology: XR CHEST (2 VW) Result Date: 11/29/2023 No acute chest process. No acute intracranial abnormality. Stable metallic probe inserted via the left frontal approach with the tip in the left thalamic area. No obvious complications. CT Head WO Contrast Result Date: 11/29/2023 No acute chest process. No acute intracranial abnormality. Stable metallic probe inserted via the left frontal approach with the tip in the left thalamic area. No obvious complications. Physical Examination: General appearance: alert, cooperative and no distress Mental Status: oriented to person, place and time and normal affect Lungs: clear to auscultation bilaterally, normal effort Heart: regular rate and rhythm, no murmur Abdomen: soft, nontender, nondistended Assessment: Hospital Problems Last Modified POA * (Principal) AMS (altered mental status) 11/28/2023 Yes Lumbar degenerative disc disease (Chronic) 11/30/2023 Yes Diabetic neuropathy (HCC) (Chronic) 11/30/2023 Yes Sleep apnea, obstructive (Chronic) 11/30/2023 Yes Overview Signed 01/25/2014 12:25 PM by Servando Diego MD S/p Tracheotomy Syncope and collapse 12/01/2023 Yes Chronic kidney disease (CKD), stage III (moderate) (HCC) 11/30/2023 Yes Generalized weakness 12/02/2023 Yes CHF (congestive heart failure) (HCC) 11/30/2023 Yes Uncontrolled hypertension 11/30/2023 Yes Dysphagia 11/30/2023 Yes GERD (gastroesophageal reflux disease) 11/30/2023 Yes S/P deep brain stimulator placement 11/30/2023 Yes Spondylarthrosis 11/30/2023 Yes DM type 2 with diabetic peripheral neuropathy (HCC) 11/30/2023 Yes Altered mental status 11/29/2023 Yes Multiple falls 11/30/2023 Yes Essential tremor 11/30/2023 Yes Staring episodes 12/01/2023 Yes Altered awareness, transient 12/01/2023 Yes Acute encephalopathy 12/02/2023 Yes Neuropathy 12/03/2023 Yes Principal Problem: AMS (altered mental status) Active Problems: Lumbar degenerative disc disease Diabetic neuropathy (HCC) Sleep apnea, obstructive Syncope and collapse Chronic kidney disease (CKD), stage III (moderate) ([facility]) Generalized weakness CHF (congestive heart failure) (HCC) Uncontrolled hypertension Dysphagia GERD (gastroesophageal reflux disease) S/P deep brain stimulator placement 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 * Plan: Acute encephalopathy on admission-resolved Uncontrolled hypertension-valsartan dose was increased yesterday, continue with that. Continue Procardia. Clonidine at home dose Acute on chronic weakness of lower extremities with debility-nonspecific symptoms. Follow neurology and neurosurgery o/p. Pt needs pain mgmt o/p Chest pain-has been chronic. No pleuritic component. Follow cardiology plan we were consulted yesterday. No hypoxia no shortness of breath Diabetes mellitus-A1c was 8.8 but had hypoglycemia yesterday. Currently sugars are increasing, will restart Lantus but at only 2 units and then adjust accordingly Recurrent DWGs-[id number] neurology plan History of prothrombin gene mutation with prior DVT-continue Coumadin CKD stage III-continue to monitor creatinine and will need follow-up with nephrology/PCP PAM on CPAP Hx of dvt: on coumadin. Pharmacy managing Discharge planning after the above workup Lori Leblanc MD 12/07/2023 9:05 AM Images from the original note were not included. [facility] Office: [phone] Alberto Rice DO, Luciano Murphy DO, Humza James DO, Jc Maria DO, Nancy Paz MD, Naz Cruz MD, Demetrio Patel MD, Hortensia Maynard MD, Filiberto Vizcaino MD, Polly Ramos MD, Julia Blanco MD, Bibi Kim DO, Yaneli Lugo MD, Chepe Pfeiffer MD, Andry Rice DO, Jamia Nur MD, Obi Alford DO, Jacquelyn Roper MD, Almita Moya MD, Jackie Rivas MD, Kylie Morales MD, Pasha Roy MD, Daniel Swenson MD, Marvin Sneed MD, Abdirahman Hunt MD, Da Moore MD, Geneva Casiano MD, Matthew Perez DO, Tk Connor DO, Jess Parker MD, Garett Valentine MD, Rosalia Mobley, DIRECTOR OF STUDENT FINANCIAL AID, Criss Gray, DIRECTOR OF STUDENT FINANCIAL AID, Lefty Matute, DIRECTOR OF STUDENT FINANCIAL AID, Brittny Quinones, DNP, Kacey Meeks, DIRECTOR OF STUDENT FINANCIAL AID, Sugey Barillas, DIRECTOR OF STUDENT FINANCIAL AID, Mary Jo Bonner, DIRECTOR OF STUDENT FINANCIAL AID, Kathy Granados, DIRECTOR OF STUDENT FINANCIAL AID, Sigrid Velásquez, DIRECTOR OF STUDENT FINANCIAL AID, Janine Turpin, PA-C, Sue Willams, PA-C, Savi Iqbal, DIRECTOR OF STUDENT FINANCIAL AID, Beckie Mello, DIRECTOR OF STUDENT FINANCIAL AID, Nora Mace, DIRECTOR OF STUDENT FINANCIAL AID, Jyoti Rojo, VENDING TECHNICIAN, Ronda Sellers, DIRECTOR OF STUDENT FINANCIAL AID, Janell Hoyt, DIRECTOR OF STUDENT FINANCIAL AID, Caryl Goznalez, DIRECTOR OF STUDENT FINANCIAL AID [facility] IN-PATIENT SERVICE [facility] Progress Note 12/06/2023 1:56 PM Name: Andry Pierre Acct: [id number] Room: 0143/0143-01 IP Day: 7 Admit Date: 11/29/2023 8:06 PM PCP: Say Mccormick MD Code Status: Full Code Subjective: C/C: chest pain and dizziness Interval History Status: not changed. NAEO Doing well this morning without complaints Bp stable today. Peer to peer denied ARU 12/04/23 Pending Placement to [facility] Brief History: Per documentation Andry Pierre is a 63 y.o. 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 and is admitted to the hospital for the management of AMS (altered mental status). Patient transferred from [place] after undergoing tilt table evaluation for concern for orthostasis on 11/28/2022 with history of recurrent episodes of dizziness with history of stroke, complicated history. tilt table test complicated by worsening acute symptoms of dizziness with chest pain with altered sensorium. Although tilt test unremarkable for orthostasis, patient was evaluated in ED with acute symptoms and recommended admission pending transfer to [facility] for neurology evaluation. Unfortunately with bed availability transfer was delayed until today. Patient with multiple somatic complaints. Describes worsening sciatica with increasing leg weakness with worsening pain status post recent fallNovember 24 with worsening radicular symptoms and neck and lumbar spine. He does describe frequent episodes of chest pain 5-6 times daily lasting minutes midsternum with crushing type symptoms radiating to his neck. Describes occasional nausea . Unintentional weight loss of 20 pounds in the past month with poor p.o. intake. Constant neck pain with recurrent headaches. Intermittent choking episodes with dysphagia. Recurrent episodes of palpitations daily lasting minutes sometimes associated with the chest pain, sometimes not with occasional shortness of breath While in [place] ED patient did develop symptomatic hypoglycemia with blood sugars in the 50s with symptoms of feeling funny . 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 Subsequently returned status post 11/24 with worsening back pain, weakness with atypical chest pain, shortness of breath. Medications: Allergies: Allergies Allergen Reactions Beta Adrenergic Blockers Other reaction(s): Headache Hydralazine Headache, nausea, sick Neuromuscular Blocking Agents [Neuromuscular Blocking Agents] After neurotin was prescribed had a stroke Neurontin [Gabapentin] Valium Was on the ground after took it Other Nausea And Vomiting Headache and nausea with some beta blockers Current Meds: Scheduled Meds: warfarin 10 mg Oral Once cloNIDine 0.2 mg Oral BID rivastigmine 1 patch TransDERmal Daily DULoxetine 20 mg Oral Daily insulin glargine 2 Units SubCUTAneous Daily atorvastatin 40 mg Oral Daily [Held by provider] metFORMIN 500 mg Oral BID montelukast 10 mg Oral Daily NIFEdipine 90 mg Oral Daily pantoprazole 40 mg Oral Daily topiramate 100 mg Oral BID warfarin placeholder: dosing by pharmacy Other RX Placeholder insulin lispro 0-4 Units SubCUTAneous TID insulin lispro 0-4 Units SubCUTAneous Nightly valsartan 160 mg Oral Daily sodium chloride flush 5-40 mL IntraVENous 2 times per day Vitamin D 5,000 Units Oral Daily Continuous Infusions: dextrose sodium chloride PRN Meds: cyclobenzaprine, labetalol, glucose, dextrose bolus OR dextrose bolus, glucagon (rDNA), dextrose, morphine, sodium chloride flush, sodium chloride, potassium chloride OR potassium alternative oral replacement OR potassium chloride, magnesium sulfate, ondansetron OR ondansetron, polyethylene glycol, acetaminophen OR acetaminophen Data: Past Medical History: has a past medical history of Arthritis, Asthma, CHF (congestive heart failure) ([facility]), CKD (chronic kidney disease) stage 2, GFR 60-89 ml/min, Clotting disorder ([facility]), Congenital heart disease, COPD (chronic obstructive pulmonary disease) ([facility]), Depression, Emphysema of lung ([facility]), GERD (gastroesophageal reflux disease), GERD (gastroesophageal reflux disease), Gout, Headache(784.0), Hernia, Hernia, History of blood clots, History of DVT (deep vein thrombosis), Hyperlipidemia, Insomnia, Irritable bowel syndrome, Kidney stones, Lumbar degenerative disc disease, Lumbar radiculopathy, Obesity, PAM (obstructive sleep apnea), Parkinson disease, Parkinson's disease, Post traumatic stress disorder, Renal disease, Rheumatoid arthritis ([facility]), Stroke ([facility]), Stroke risk, Tracheostomy in place ([facility]), Tremors of nervous system, Type II or unspecified type diabetes mellitus without mention of complication, not stated as uncontrolled, Uncontrolled hypertension, and Unspecified cerebral artery occlusion with cerebral infarction. Social History: reports that he has never smoked. He has never been exposed to tobacco smoke. He has quit using smokeless tobacco. His smokeless tobacco use included chew. He reports that he does not drink alcohol and does not use drugs. Family History: Family History Problem Relation Age of Onset Heart Disease Mother Stroke Mother Arthritis Mother High Blood Pressure Mother Heart Disease Father Stroke Father Heart Attack Father High Blood Pressure Father Cancer Paternal Grandfather Substance Abuse Sister High Blood Pressure Sister Substance Abuse Brother High Blood Pressure Maternal Grandmother Heart Disease Maternal Grandmother High Blood Pressure Paternal Grandmother Heart Disease Paternal Grandmother Vitals: BP (!) 142/77 Pulse 70 Temp 97.7 F (36.5 C) Resp 16 Ht 1.803 m (5' 11 ) Wt 133.2 kg (293 lb 10.4 oz) SpO2 95% BMI 40.96 kg/m Temp (24hrs), Av F (36.7 C), Min:97.7 F (36.5 C), Max:98.5 F (36.9 C) Recent Labs 12/05/23 1716 12/05/23202412/06/23 0742 12/06/23 1259 POCGLU 137* 160* 119* 176* I/O (24Hr): Intake/Output Summary (Last 24 hours) at 12/06/2023 1356 Last data filed at 12/06/2023 0530 Gross per 24 hour Intake 480 ml Output 1700 ml Net -1220 ml Labs: Hematology: Recent Labs 12/04/23 0331 12/05/23 0513 12/06/23 0806 HGB -- 13.1 -- HCT -- 42.9 -- PLT -- 194 -- INR 3.0 2.6 2.7 Chemistry: No results for input(s): NA , K , CL , CO2 , GLUCOSE , BUN , CREATININE , MG , ANIONGAP , LABGLOM , GFRAA , CALCIUM , CAION , PHOS , PSA , PROBNP , TROPHS , CKTOTAL , CKMB , CKMBINDEX , MYOGLOBIN , DIGOXIN , LACTACIDWB in the last 72 hours. Recent Labs 12/05/23 0756 12/05/23 1210 12/05/23 1716 12/05/23202412/06/23 0742 12/06/23 1259 POCGLU 131* 189* 137* 160* 119* 176* ABG: Lab Results Component Value Date/Time PH 7.413 08/22/2011 03:20 PM PCO2 41.5 08/22/2011 03:20 PM PO2ART 92.5 08/22/2011 03:20 PM MAN6GYO 26.0 08/22/2011 03:20 PM NBEA NOT REPORTED 08/22/2011 03:20 PM PBEA 1.8 08/22/2011 03:20 PM T4ESYYZS 95.6 08/22/2011 03:20 PM FIO2 INFORMATION NOT PROVIDED 11/30/2023 12:05 AM Lab Results Component Value Date/Time SPECIAL NOT REPORTED 10/20/2012 10:15 AM SPECIAL NOT REPORTED 10/20/2012 10:15 AM Lab Results Component Value Date/Time CULTURE NO GROWTH 10/20/2012 10:15 AM CULTURE 10/20/2012 10:15 AM Performed at [id number] [id number] Radiology: XR CHEST (2 VW) Result Date: 11/29/2023 No acute chest process. No acute intracranial abnormality. Stable metallic probe inserted via the left frontal approach with the tip in the left thalamic area. No obvious complications. CT Head WO Contrast Result Date: 11/29/2023 No acute chest process. No acute intracranial abnormality. Stable metallic probe inserted via the left frontal approach with the tip in the left thalamic area. No obvious complications. Physical Examination: General appearance: alert, cooperative and no distress Mental Status: oriented to person, place and time and normal affect Lungs: clear to auscultation bilaterally, normal effort Heart: regular rate and rhythm, no murmur Abdomen: soft, nontender, nondistended Assessment: Hospital Problems Last Modified POA * (Principal) AMS (altered mental status) 11/28/2023 Yes Lumbar degenerative disc disease (Chronic) 11/30/2023 Yes Diabetic neuropathy (HCC) (Chronic) 11/30/2023 Yes Sleep apnea, obstructive (Chronic) 11/30/2023 Yes Overview Signed 01/25/2014 12:25 PM by Servando Diego MD S/p Tracheotomy Syncope and collapse 12/01/2023 Yes Chronic kidney disease (CKD), stage III (moderate) (HCC) 11/30/2023 Yes Generalized weakness 12/02/2023 Yes CHF (congestive heart failure) (HCC) 11/30/2023 Yes Uncontrolled hypertension 11/30/2023 Yes Dysphagia 11/30/2023 Yes GERD (gastroesophageal reflux disease) 11/30/2023 Yes S/P deep brain stimulator placement 11/30/2023 Yes Spondylarthrosis 11/30/2023 Yes DM type 2 with diabetic peripheral neuropathy (HCC) 11/30/2023 Yes Altered mental status 11/29/2023 Yes Multiple falls 11/30/2023 Yes Essential tremor 11/30/2023 Yes Staring episodes 12/01/2023 Yes Altered awareness, transient 12/01/2023 Yes Acute encephalopathy 12/02/2023 Yes Neuropathy 12/03/2023 Yes Principal Problem: AMS (altered mental status) Active Problems: Lumbar degenerative disc disease Diabetic neuropathy (HCC) Sleep apnea, obstructive Syncope and collapse Chronic kidney disease (CKD), stage III (moderate) (HCC) Generalized weakness CHF (congestive heart failure) (HCC) Uncontrolled hypertension Dysphagia GERD (gastroesophageal reflux disease) S/P deep brain stimulator placement 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 * Plan: Acute encephalopathy on admission-resolved Uncontrolled hypertension-valsartan dose was increased yesterday, continue with that. Continue Procardia. Clonidine at home dose Acute on chronic weakness of lower extremities with debility-nonspecific symptoms. Follow neurology and neurosurgery plan. CT cervical spine to be done today Chest pain-has been chronic. No pleuritic component. Follow cardiology plan we were consulted yesterday. No hypoxia no shortness of breath Diabetes mellitus-A1c was 8.8 but had hypoglycemia yesterday. Currently sugars are increasing, will restart Lantus but at only 2 units and then adjust accordingly Recurrent [id number] neurology plan History of prothrombin gene mutation with prior DVT-continue Coumadin CKD stage III-continue to monitor creatinine and will need follow-up with nephrology/PCP PAM on CPAP Discharge planning after the above workup Lori Leblanc MD 12/06/2023 1:56 PM Pharmacy Note Warfarin Consult follow-up Warfarin dose prior to admission: 17.5 mg Sun, 15 mg all other days (per medication management clinic in [place], last visit 11/11; clinic noted recent dose decrease) Warfarin indication: h/o DVT Target INR range: 2-3 Recent Labs 12/06/23 0806 INR 2.7 Recent Labs 12/05/23 0513 HGB 13.1 HCT 42.9 PLT 194 Current warfarin drug-drug interactions: / Date INR Dose 11/30 3 10 mg 12/01 2.8 15 mg 12/02 2.8 15 mg 12/03 3.3 Held 3 10 mg 12/04 2.6 10 mg 12/05 2.7 Notes: - INR therapeutic, will order Warfarin 10 mg x1 today based on earlier response to home regimen Daily PT/INR while inpatient. Nolan Mccarty PharmD, 12/06/2023 9:52 AM Pharmacy Note Warfarin Consult follow-up Warfarin dose prior to admission: 17.5 mg Sun, 15 mg all other days (per medication management clinic in [place], last visit 11/11; clinic noted recent dose decrease) Warfarin indication: h/o DVT Target INR range: 2-3 Recent Labs 12/05/23 0513 INR 2.6 Recent Labs 12/05/23 0513 HGB 13.1 HCT 42.9 PLT 194 Current warfarin drug-drug interactions: / Date INR Dose 11/30 3 10 mg 12/01 2.8 15 mg 12/02 2.8 15 mg 12/03 3.3 Held 3 10 mg 12/04 2.6 Notes: - INR therapeutic and trending down after holding dose on 12/03 - Will order Warfarin 10 mg x1 today based on earlier response to home regimen Daily PT/INR while inpatient. Nolan Mccarty PharmD, 12/05/2023 2:41 PM MEDICAL VIDEOGRAPHER ALL NOTES Speech Language Pathology [facility] Cognitive Treatment Note Date: 12/05/2023 Patient s Name: Andry Pierre Diagnosis: Patient Active Problem List Diagnosis Code COPD (chronic obstructive pulmonary disease) ([facility]) J44.9 PAM (obstructive sleep apnea) G47.33 Obesity, morbid ([facility]) E66.01 Lumbar degenerative disc disease M51.36 Lumbar radiculopathy M54.16 Lumbar facet arthropathy M47.816 Osteoarthritis of both knees M17.0 Diabetic neuropathy ([facility]) E11.40 Morbid obesity ([facility]) E66.01 Sleep apnea, obstructive G47.33 Encounter for medication monitoring Z51.81 Chronic kidney disease (CKD), stage III (moderate) ([facility]) N18.30 Hyperkalemia E87.5 Generalized weakness R53.1 Pill rolling tremor R25.1 Muscle cramps R25.2 Acute renal failure (ARF) ([facility]) N17.9 Type II or unspecified type diabetes mellitus without mention of complication, not stated as uncontrolled E11.9 Depression F32.A Irritable bowel syndrome K58.9 Obesity E66.9 CHF (congestive heart failure) ([facility]) I50.9 Parkinson disease G20.A1 Tremors of nervous system R25.[address] ([facility]) Z93.0 Bilateral lower extremity edema R60.0 CKD (chronic kidney disease) N18.9 Uncontrolled hypertension I10 Dysphagia R13.10 Hyperlipidemia E78.5 History of DVT (deep vein thrombosis) Z86.718 Congenital heart disease Q24.9 Emphysema of lung ([facility]) J43.9 Hernia K46.9 Stroke risk Z91.89 GERD (gastroesophageal reflux disease) K21.9 Asthma J45.909 Renal disease N28.9 Gout M10.9 S/P deep brain stimulator placement Z96.89 Parkinsons G20.A1 CKD (chronic kidney disease) stage 2, GFR 60-89 ml/min N18.2 Type II or unspecified type diabetes mellitus with renal manifestations, not stated as uncontrolled(250.40) E11.29 Encounter for chronic pain management G89.29 Weight loss, intentional [id number] 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 Primary osteoarthritis of both knees M17.0 DM type 2 with diabetic peripheral neuropathy ([facility]) E11.42 Need for immunization against influenza Z23 Morbid obesity due to excess calories ([facility]) E66.01 Diabetic mononeuropathy associated with diabetes mellitus due to underlying condition ([facility]) E08.41 AMS (altered mental status) R41.82 Altered mental status R41.82 Multiple falls R29.6 Essential tremor G25.0 Syncope and collapse R55 Staring episodes R40.4 Altered awareness, transient R40.4 Acute encephalopathy G93.40 Neuropathy G62.9 Pain: 0/10 Cognitive Treatment Treatment time: 950 - 1015 Subjective: [x] Alert [x] Cooperative [] Confused [] Agitated [] Lethargic Objective/Assessment: Recall: Immediate recall (4 words unrelated): 01/07 independently Delayed recall (4 words unrelated): 01/07, 3/4 independently Functional memory tasks (3-4 elements): 02/12 increased to 05/15 given min verbal and phonemic cues Problem Solving/Reasoning: Comparing sentence content: 04/12 despite given max verbal cues Inferences about paragraphs: 03/14 independently Multiple definitions: 07/15 independently Other: Pt. Stated mental exhaustion following completion of tasks. Pt. With awareness exhaustion level is not at baseline. Pt. Seen for diet upgrade. Pt. Given trials of puree, soft solid and sips of thin liquid with no s/s of aspiration. Mildly decreased mastication with soft solids, however functional. Occasional swallow delay noted. ST recommends upgrading diet to Dysphagia soft and bite/sized (Dysphagia III) continue with thin liquid. Pt. Provided with education re: safe swallow strategies. Pt. Verbalized understanding. If s/s of aspiration occur, d/c all PO and recommend NPO and repeat MBSS. Results and recommendations reported to RN. Plan: [x] Continue ST services [] Discharge from ST: Discharge recommendations: [x] Further therapy recommended at discharge.The patient should be able to tolerate at least 3 hours of therapy per day over 5 days or 15 hours over 7 days. [] Further therapy recommended at discharge. [] No therapy recommended at discharge. Completed by Tess Robert Director Learning Clinician Co-signed by Kathy Rivera M.A.CCC/MEDICAL VIDEOGRAPHER Occupational Therapy Facility/Department: [address] [place] Occupational Therapy Daily Treatment Note Name: Andry Pierre : 1960 Date of Service: 12/05/2023 Discharge Recommendations: Patient would benefit from continued therapy after discharge OT Equipment Recommendations ADL Assistive Devices: Shower Chair with back Other: weighted utensils Patient Diagnosis(es): There were no encounter diagnoses. Past Medical History: has a past medical history of Arthritis, Asthma, CHF (congestive heart failure) ([facility]), CKD (chronic kidney disease) stage 2, GFR 60-89 ml/min, Clotting disorder ([facility]), Congenital heart disease, COPD (chronic obstructive pulmonary disease) ([facility]), Depression, Emphysema of lung ([facility]), GERD (gastroesophageal reflux disease), GERD (gastroesophageal reflux disease), Gout, Headache(784.0), Hernia, Hernia, History of blood clots, History of DVT (deep vein thrombosis), Hyperlipidemia, Insomnia, Irritable bowel syndrome, Kidney stones, Lumbar degenerative disc disease, Lumbar radiculopathy, Obesity, PAM (obstructive sleep apnea), Parkinson disease, Parkinson's disease, Post traumatic stress disorder, Renal disease, Rheumatoid arthritis ([facility]), Stroke ([facility]), Stroke risk, Tracheostomy in place ([facility]), Tremors of nervous system, Type II or unspecified type diabetes mellitus without mention of complication, not stated as uncontrolled, Uncontrolled hypertension, and Unspecified cerebral artery occlusion with cerebral infarction. Past Surgical History: has a past surgical history that includes Appendectomy; Ankle surgery (Left); Carpal tunnel release (Right); Neck surgery; sinus surgery (10/06/2012); Knee arthroscopy (Right); brain surgery; Cardiac catheterization; tracheostomy (07/06/2013); Deep brain stimulator placement; Dialysis fistula creation (03/06/2014); Upper gastrointestinal endoscopy (05/03/2011); Colonoscopy (06/03/2003); hernia repair (Right); Upper gastrointestinal endoscopy (); Uvulopalatopharygoplasty; Colonoscopy (); and Cholecystectomy. Assessment Performance deficits / Impairments: Decreased functional mobility ;Decreased ADL status;Decreased strength;Decreased endurance;Decreased balance;Decreased coordination;Decreased high-level IADLs;Decreased fine motor control Assessment: Pt completed ADLs seated in recliner this date for energy conservation and d/t pain in BLEs. Pt MAX A x1 for STS from chair w/ RW and MIN A for static standing. Pt demo'd difficulty w/ weight-shifting in BLEs d/t increased pain in L knee and R foot and was unable to complete functional mobility this date. Pt would benefit from continued OT to address above deficits. Prognosis: Good Activity Tolerance Activity Tolerance: Patient Tolerated treatment well;Patient limited by pain Plan Occupational Therapy Plan Times Per Week: 3-5x Current Treatment Recommendations: Strengthening, ROM, Balance training, Functional mobility training, Endurance training, Cognitive reorientation, Gait training, Self-Care / ADL, Home management training, Coordination training Restrictions Restrictions/Precautions Restrictions/Precautions: Up as Tolerated, Fall Risk, General Precautions Required Braces or Orthoses?: No Position Activity Restriction Other position/activity restrictions: Up as tolerated, orthostatic checks . Pt report progressive LE weakness more frequent falls, activity as tolerated up with assist , pt had DBS in place Subjective General Patient assessed for rehabilitation services?: Yes Additional Pertinent Hx: fall - still in pain from fall Response to previous treatment: Patient with no complaints from previous session Family / Caregiver Present: No Diagnosis: AMS, COPD General Comment Comments: RN ok'd pt for OT this date. Pt agreeable, pleasant and cooperative t/o. Pt reported 8/10 pain in L knee and R foot. Pt in chair upon arrival, engaged in activity and was repositioned in chair for comfort w/ all needs met at end of session. Objective Safety Devices Type of Devices: Patient at risk for falls;Left in chair;Gait belt;Call light within reach;Chair alarm in place;Telesitter in use Restraints Restraints Initially in Place: No Balance Sitting: Intact (Pt sat EOC for ~50 mins to complete static/dynamic activity. Pt demo'd good trunk control t/o and had no LOB. Pt took intermittent rest breaks leaning back into chair.) Standing: With support (Pt statically stood w/ RW at chair ~2-3 mins MIN A. Pt engaged in weight-shifting while standing and demo'd difficulty lifting L foot off of floor d/t increased pain in R foot when weight-shifting.) Transfer Training Transfer Training: Yes Overall Level of Assistance: Additional time;Adaptive equipment;Maximum assistance;Assist X1 (Pt completed STS w/ RW from chair MAX A x1. Heavy reliance on B arm rests to initiate stands, reaches for RW when in forward flex posture, bears weight in BUEs on RW to health claims examiner upright posture.) Interventions: Safety awareness training (body mechanics, safety, posture) Sit to Stand: Maximum assistance;Additional time;Adaptive equipment;Assist X1 Stand to Sit: Maximum assistance;Assist X1;Additional time;Adaptive equipment ADL Grooming: Increased time to complete;Minimal assistance Grooming Skilled Clinical Factors: Pt seated in recliner to complete oral hygiene. Pt required assist for removing toothpaste cap from toothpaste d/t decreased FMC. UE Bathing: Stand by assistance;Increased time to complete;Minimal assistance UE Bathing Skilled Clinical Factors: Pt seated in recliner to bathe trunk/BUEs/underarms w/ wash cloth SBA. Pt required MIN A to reach back d/t limited functional reach. Pt also applied deodorant spray to B underarms. LE Bathing: Increased time to complete;Stand by assistance LE Bathing Skilled Clinical Factors: Pt seated in recliner to bathe B feet w/ washcloth using fig 4 tech SBA. Pt expected to require increased assist for bathing vee areas in standing position d/t decreased standing balance. UE Dressing: Stand by assistance;Increased time to complete UE Dressing Skilled Clinical Factors: Pt seated in recliner to doff/don gown. Pt able to thread BUEs through sleeves and pull up to shoulders. LE Dressing: Stand by assistance;Increased time to complete LE Dressing Skilled Clinical Factors: Pt sat in recliner to doff/don B socks using fig 4 tech SBA. Pt alternated lifting BLEs on to knee by pulling pant leg for sock mgmt. Pt expected to require increased assist to doff/don pants/underwear d/t decreased standing balance. Functional Mobility: Unable to assess(comment) Functional Mobility Skilled Clinical Factors: ALIA; pt demo'd difficulty w/ BLE advancement when standing w/ RW. Pt able to partially lift R foot off floor, increased difficulty w/ lifting L foot d/t increased pain w/ weight-shifting on R foot. Additional Comments: Pt declined LB bathing/dressing this date stating has not brought clean pants to change into at this time. Skin Care: Soap and water Bed mobility Supine to Sit: Unable to assess Sit to Supine: Unable to assess Scooting: Stand by assistance Bed Mobility Comments: Pt in chair upon entry/exit, states he has been sleeping in chair while at hospital. Cognition Overall Cognitive Status: WFL Orientation Overall Orientation Status: Within Functional Limits Orientation Level: Oriented X4 Education Given To: Patient Education Provided: Role of Therapy;ADL Adaptive Strategies;Transfer Training;Orientation;Equipment;E nergy Conservation Education Provided Comments: OT role, transfer safety, AD use, ADLs. Good return. Education Method: Verbal Barriers to Learning: None Education Outcome: Verbalized understanding;Demonstrated understanding AM-PAC - ADL AM-PAC Daily Activity - Inpatient How much help is needed for putting on and taking off regular lower body clothing?: A Lot How much help is needed for bathing (which includes washing, rinsing, drying)?: A Lot How much help is needed for toileting (which includes using toilet, bedpan, or urinal)?: A Little How much help is needed for putting on and taking off regular upper body clothing?: None How much help is needed for taking care of personal grooming?: A Little How much help for eating meals?: None AM-PAC Inpatient Daily Activity Raw Score: 18 AM-[facility] Inpatient ADL T-Scale Score : 38.66 ADL Inpatient CMS 0-100% Score: 46.65 ADL Inpatient CMS G-Code Modifier : CK Goals Short Term Goals Time Frame for Short Term Goals: By discharge pt will... Short Term Goal 1: complete LB bathing/dressing activity with SUP using LRD PRN Short Term Goal 2: complete UB bathing/dressing activity with IND Short Term Goal 3: complete all functional transfers with SUP using LRD PRN Short Term Goal 4: Demo saftey awareness during func mob household distance with SUP and 1 vc using LRD PRN Short Term Goal 5: Demo standing balance during dynamic ADL activity for 10+ mins with SUP using LRD PRN Short Term Goal 6: demo 5 step functional task with 1 or less VCs to address cog cncerns Therapy Time Individual Concurrent Group Co-treatment Time In 846 Time Out 0944 Minutes 57 Timed Code Treatment Minutes: 57 Minutes REBECA Arriola/Aleja Images from the original note were not included. [facility] Office: [phone] Alberto Rice DO, Luciano Murphy DO, Humza James DO, Jc Maria DO, Nancy Paz MD, Naz Cruz MD, Demetrio Patel MD, Hortensia Maynard MD, Filiberto Vizcaino MD, Polly Ramos MD, Julia Blanco MD, Bibi Kim DO, Yaneli Lugo MD, Chepe Pfeiffer MD, Andry Rice DO, Jamia Nur MD, Obi Alford DO, Jacquelyn Roper MD, Almita Moya MD, Jackie Rivas MD, Kylie Morales MD, Pasha Roy MD, Daniel Swenson MD, Marvin Sneed MD, Abdirahman Hunt MD, Da Moore MD, Geneva Casiano MD, Matthew Perez DO, Tk Connor DO, Jess Parker MD, Garett Valentine MD, Rosalia Mobley, DIRECTOR OF STUDENT FINANCIAL AID, Criss Gray, DIRECTOR OF STUDENT FINANCIAL AID, Lefty Matute, DIRECTOR OF STUDENT FINANCIAL AID, Brittny Quinones, DNP, Kacey Meeks, DIRECTOR OF STUDENT FINANCIAL AID, Sugey Barillas, DIRECTOR OF STUDENT FINANCIAL AID, Mary Jo Bonner, DIRECTOR OF STUDENT FINANCIAL AID, Kathy Granados, DIRECTOR OF STUDENT FINANCIAL AID, Sigrid Velásquez, DIRECTOR OF STUDENT FINANCIAL AID, Janine Turpin, PA-C, Sue Willams PA-C, Savi Iqbal, DIRECTOR OF STUDENT FINANCIAL AID, Beckie Mello, DIRECTOR OF STUDENT FINANCIAL AID, Nora Mace, DIRECTOR OF STUDENT FINANCIAL AID, Jyoti Rojo, VENDING TECHNICIAN, Ronda Sellers, DIRECTOR OF STUDENT FINANCIAL AID, Janell Hoyt, DIRECTOR OF STUDENT FINANCIAL AID, Caryl Gonzalez, DIRECTOR OF STUDENT FINANCIAL AID [facility] IN-PATIENT SERVICE [facility] Progress Note 12/05/2023 8:58 AM Name: Andry Pierre Acct: [id number] Room: [facility]/0143-[facility] Day: 6 Admit Date: 11/29/2023 8:06 PM PCP: Say Mccormick MD Code Status: Full Code Subjective: C/C: chest pain and dizziness Interval History Status: not changed. NAEO Doing well this morning without complaints Bp stable today. Peer to peer denied ARU 12/04/23 Pending Placement to [facility] Brief History: Per documentation Andry Pierre is a 63 y.o. 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 and is admitted to the hospital for the management of AMS (altered mental status). Patient transferred from [place] after undergoing tilt table evaluation for concern for orthostasis on 11/28/2022 with history of recurrent episodes of dizziness with history of stroke, complicated history. tilt table test complicated by worsening acute symptoms of dizziness with chest pain with altered sensorium. Although tilt test unremarkable for orthostasis, patient was evaluated in ED with acute symptoms and recommended admission pending transfer to [facility] for neurology evaluation. Unfortunately with bed availability transfer was delayed until today. Patient with multiple somatic complaints. Describes worsening sciatica with increasing leg weakness with worsening pain status post recent fallNovember 24 with worsening radicular symptoms and neck and lumbar spine. He does describe frequent episodes of chest pain 5-6 times daily lasting minutes midsternum with crushing type symptoms radiating to his neck. Describes occasional nausea . Unintentional weight loss of 20 pounds in the past month with poor p.o. intake. Constant neck pain with recurrent headaches. Intermittent choking episodes with dysphagia. Recurrent episodes of palpitations daily lasting minutes sometimes associated with the chest pain, sometimes not with occasional shortness of breath While in [place] ED patient did develop symptomatic hypoglycemia with blood sugars in the 50s with symptoms of feeling funny . 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 Subsequently returned status post 11/24 with worsening back pain, weakness with atypical chest pain, shortness of breath. Medications: Allergies: Allergies Allergen Reactions Beta Adrenergic Blockers Other reaction(s): Headache Hydralazine Headache, nausea, sick Neuromuscular Blocking Agents [Neuromuscular Blocking Agents] After neurotin was prescribed had a stroke Neurontin [Gabapentin] Valium Was on the ground after took it Other Nausea And Vomiting Headache and nausea with some beta blockers Current Meds: Scheduled Meds: rivastigmine 1 patch TransDERmal Daily DULoxetine 20 mg Oral Daily cloNIDine 0.1 mg Oral BID insulin glargine 2 Units SubCUTAneous Daily atorvastatin 40 mg Oral Daily [Held by provider] metFORMIN 500 mg Oral BID montelukast 10 mg Oral Daily NIFEdipine 90 mg Oral Daily pantoprazole 40 mg Oral Daily topiramate 100 mg Oral BID warfarin placeholder: dosing by pharmacy Other RX Placeholder insulin lispro 0-4 Units SubCUTAneous TID insulin lispro 0-4 Units SubCUTAneous Nightly valsartan 160 mg Oral Daily sodium chloride flush 5-40 mL IntraVENous 2 times per day Vitamin D 5,000 Units Oral Daily Continuous Infusions: dextrose sodium chloride PRN Meds: cyclobenzaprine, labetalol, glucose, dextrose bolus OR dextrose bolus, glucagon (rDNA), dextrose, morphine, sodium chloride flush, sodium chloride, potassium chloride OR potassium alternative oral replacement OR potassium chloride, magnesium sulfate, ondansetron OR ondansetron, polyethylene glycol, acetaminophen OR acetaminophen Data: Past Medical History: has a past medical history of Arthritis, Asthma, CHF (congestive heart failure) ([facility]), CKD (chronic kidney disease) stage 2, GFR 60-89 ml/min, Clotting disorder ([facility]), Congenital heart disease, COPD (chronic obstructive pulmonary disease) ([facility]), Depression, Emphysema of lung ([facility]), GERD (gastroesophageal reflux disease), GERD (gastroesophageal reflux disease), Gout, Headache(784.0), Hernia, Hernia, History of blood clots, History of DVT (deep vein thrombosis), Hyperlipidemia, Insomnia, Irritable bowel syndrome, Kidney stones, Lumbar degenerative disc disease, Lumbar radiculopathy, Obesity, PAM (obstructive sleep apnea), Parkinson disease, Parkinson's disease, Post traumatic stress disorder, Renal disease, Rheumatoid arthritis ([facility]), Stroke ([facility]), Stroke risk, Tracheostomy in place ([facility]), Tremors of nervous system, Type II or unspecified type diabetes mellitus without mention of complication, not stated as uncontrolled, Uncontrolled hypertension, and Unspecified cerebral artery occlusion with cerebral infarction. Social History: reports that he has never smoked. He has never been exposed to tobacco smoke. He has quit using smokeless tobacco. His smokeless tobacco use included chew. He reports that he does not drink alcohol and does not use drugs. Family History: Family History Problem Relation Age of Onset Heart Disease Mother Stroke Mother Arthritis Mother High Blood Pressure Mother Heart Disease Father Stroke Father Heart Attack Father High Blood Pressure Father Cancer Paternal Grandfather Substance Abuse Sister High Blood Pressure Sister Substance Abuse Brother High Blood Pressure Maternal Grandmother Heart Disease Maternal Grandmother High Blood Pressure Paternal Grandmother Heart Disease Paternal Grandmother Vitals: BP (!) 140/79 Pulse 80 Temp 98.2 F (36.8 C) (Oral) Resp 16 Ht 1.803 m (5' 11 ) Wt 133.2 kg (293 lb 10.4 oz) SpO2 93% BMI 40.96 kg/m Temp (24hrs), Av.2 F (36.8 C), Min:97.9 F (36.6 C), Max:98.4 F (36.9 C) Recent Labs 12/04/23 1211 12/04/23161312/04/23203712/05/23 0756 POCGLU 184* 194* 181* 131* I/O (24Hr): Intake/Output Summary (Last 24 hours) at 12/05/2023 0858 Last data filed at 12/05/2023 0000 Gross per 24 hour Intake 480 ml Output 850 ml Net -370 ml Labs: Hematology: Recent Labs 12/03/23 0559 12/04/23 0331 12/05/23 0513 HGB -- -- 13.1 HCT -- -- 42.9 PLT -- -- 194 INR 3.3 3.0 2.6 Chemistry: No results for input(s): NA , K , CL , CO2 , GLUCOSE , BUN , CREATININE , MG , ANIONGAP , LABGLOM , GFRAA , CALCIUM , CAION , PHOS , PSA , PROBNP , TROPHS , CKTOTAL , CKMB , CKMBINDEX , MYOGLOBIN , DIGOXIN , LACTACIDWB in the last 72 hours. Recent Labs 12/04/23 0031 12/04/23 0807 12/04/23 1211 12/04/23 1614 12/04/23203712/05/23 0756 POCGLU 161* 120* 184* 194* 181* 131* ABG: Lab Results Component Value Date/Time PH 7.413 08/22/2011 03:20 PM PCO2 41.5 08/22/2011 03:20 PM PO2ART 92.5 08/22/2011 03:20 PM TFE9GJY 26.0 08/22/2011 03:20 PM NBEA NOT REPORTED 08/22/2011 03:20 PM PBEA 1.8 08/22/2011 03:20 PM [id number] 95.6 08/22/2011 03:20 PM FIO2 INFORMATION NOT PROVIDED 11/30/2023 12:05 AM Lab Results Component Value Date/Time SPECIAL NOT REPORTED 10/20/2012 10:15 AM SPECIAL NOT REPORTED 10/20/2012 10:15 AM Lab Results Component Value Date/Time CULTURE NO GROWTH 10/20/2012 10:15 AM CULTURE 10/20/2012 10:15 AM Performed at [facility] [address] [place] [id number] Radiology: XR CHEST (2 VW) Result Date: 11/29/2023 No acute chest process. No acute intracranial abnormality. Stable metallic probe inserted via the left frontal approach with the tip in the left thalamic area. No obvious complications. CT Head WO Contrast Result Date: 11/29/2023 No acute chest process. No acute intracranial abnormality. Stable metallic probe inserted via the left frontal approach with the tip in the left thalamic area. No obvious complications. Physical Examination: General appearance: alert, cooperative and no distress Mental Status: oriented to person, place and time and normal affect Lungs: clear to auscultation bilaterally, normal effort Heart: regular rate and rhythm, no murmur Abdomen: soft, nontender, nondistended Assessment: Hospital Problems Last Modified POA * (Principal) AMS (altered mental status) 11/28/2023 Yes Lumbar degenerative disc disease (Chronic) 11/30/2023 Yes Diabetic neuropathy (HCC) (Chronic) 11/30/2023 Yes Sleep apnea, obstructive (Chronic) 11/30/2023 Yes Overview Signed 01/25/2014 12:25 PM by Servando Diego MD S/p Tracheotomy Syncope and collapse 12/01/2023 Yes Chronic kidney disease (CKD), stage III (moderate) (HCC) 11/30/2023 Yes Generalized weakness 12/02/2023 Yes CHF (congestive heart failure) (HCC) 11/30/2023 Yes Uncontrolled hypertension 11/30/2023 Yes Dysphagia 11/30/2023 Yes GERD (gastroesophageal reflux disease) 11/30/2023 Yes S/P deep brain stimulator placement 11/30/2023 Yes Spondylarthrosis 11/30/2023 Yes DM type 2 with diabetic peripheral neuropathy (HCC) 11/30/2023 Yes Altered mental status 11/29/2023 Yes Multiple falls 11/30/2023 Yes Essential tremor 11/30/2023 Yes Staring episodes 12/01/2023 Yes Altered awareness, transient 12/01/2023 Yes Acute encephalopathy 12/02/2023 Yes Neuropathy 12/03/2023 Yes Principal Problem: AMS (altered mental status) Active Problems: Lumbar degenerative disc disease Diabetic neuropathy (HCC) Sleep apnea, obstructive Syncope and collapse Chronic kidney disease (CKD), stage III (moderate) ([facility]) Generalized weakness CHF (congestive heart failure) (HCC) Uncontrolled hypertension Dysphagia GERD (gastroesophageal reflux disease) S/P deep brain stimulator placement 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 * Plan: Acute encephalopathy on admission-resolved Uncontrolled hypertension-valsartan dose was increased yesterday, continue with that. Continue Procardia. Clonidine at home dose Acute on chronic weakness of lower extremities with debility-nonspecific symptoms. Follow neurology and neurosurgery plan. CT cervical spine to be done today Chest pain-has been chronic. No pleuritic component. Follow cardiology plan we were consulted yesterday. No hypoxia no shortness of breath Diabetes mellitus-A1c was 8.8 but had hypoglycemia yesterday. Currently sugars are increasing, will restart Lantus but at only 2 units and then adjust accordingly Recurrent [id number] neurology plan History of prothrombin gene mutation with prior DVT-continue Coumadin CKD stage III-continue to monitor creatinine and will need follow-up with nephrology/PCP PAM on CPAP Discharge planning after the above workup Lori Leblanc MD 12/05/2023 8:58 AM Images from the original note were not included. [facility] Office: [phone] Alberto Rice DO, Luciano Murphy DO, Humza James DO, Jc Maria DO, Nancy Paz MD, Naz Cruz MD, Demetrio Patel MD, Hortensia Maynard MD, Filiberto Vizcaino MD, Polly Ramos MD, Julia Blanco MD, Bibi Kim DO, Yaneli Lugo MD, Chepe Pfeiffer MD, Andry Rice DO, Jamia Nur MD, Obi Alford DO, Jacquelyn Roper MD, Almita Moya MD, Jackie Rivas MD, Kylie Morales MD, Pasha Roy MD, Daniel Swenson MD, Marvin Sneed MD, Abdirahman Hunt MD, Da Moore MD, Geneva Casiano MD, Matthew Perez DO, Tk Connor DO, Jess Parker MD, Garett Valentine MD, Rosalia Mobley, DIRECTOR OF STUDENT FINANCIAL AID, Criss Gray, DIRECTOR OF STUDENT FINANCIAL AID, Lefty Matute, DIRECTOR OF STUDENT FINANCIAL AID, Brittny Quinones, DNP, Kacey Meeks, DIRECTOR OF STUDENT FINANCIAL AID, Sugey Barillas, DIRECTOR OF STUDENT FINANCIAL AID, Mary Jo Bonner, DIRECTOR OF STUDENT FINANCIAL AID, Kathy Granados, DIRECTOR OF STUDENT FINANCIAL AID, Sigrid Velásquez, DIRECTOR OF STUDENT FINANCIAL AID, Janine Turpin, PA-C, Sue Willams, PA-C, Savi Iqbal, DIRECTOR OF STUDENT FINANCIAL AID, Beckie Mello, DIRECTOR OF STUDENT FINANCIAL AID, Nora Mace, DIRECTOR OF STUDENT FINANCIAL AID, Jyoti Rojo, VENDING TECHNICIAN, Ronda Sellers, DIRECTOR OF STUDENT FINANCIAL AID, Janell Hoyt, DIRECTOR OF STUDENT FINANCIAL AID, Caryl Gonzalez, DIRECTOR OF STUDENT FINANCIAL AID [facility] IN-PATIENT SERVICE [facility] Progress Note 12/04/2023 2:59 PM Name: Andry Pierre Acct: [id number] Room: 0143/0143-01 Day: 5 Admit Date: 11/29/2023 8:06 PM PCP: Say Mccormick MD Code Status: Full Code Subjective: C/C: chest pain and dizziness Interval History Status: not changed. Patient tried to work with therapy but could not stand up. He said he felt too weak. Also felt dizzy. He says he has chronic chest pain for the last few months. Blood sugar is getting elevated now. Blood pressure is slightly on the higher side but he is allergic to multiple medications. Bp stable today. Peer to peer denied ARU 12/04/23 Pending Placement Brief History: Per documentation Andry Pierre is a 63 y.o. 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 and is admitted to the hospital for the management of AMS (altered mental status). Patient transferred from [place] after undergoing tilt table evaluation for concern for orthostasis on 11/28/2022 with history of recurrent episodes of dizziness with history of stroke, complicated history. tilt table test complicated by worsening acute symptoms of dizziness with chest pain with altered sensorium. Although tilt test unremarkable for orthostasis, patient was evaluated in ED with acute symptoms and recommended admission pending transfer to [facility] for neurology evaluation. Unfortunately with bed availability transfer was delayed until today. Patient with multiple somatic complaints. Describes worsening sciatica with increasing leg weakness with worsening pain status post recent fall November 24 with worsening radicular symptoms and neck and lumbar spine. He does describe frequent episodes of chest pain 5-6 times daily lasting minutes midsternum with crushing type symptoms radiating to his neck. Describes occasional nausea . Unintentional weight loss of 20 pounds in the past month with poor p.o. intake. Constant neck pain with recurrent headaches. Intermittent choking episodes with dysphagia. Recurrent episodes of palpitations daily lasting minutes sometimes associated with the chest pain, sometimes not with occasional shortness of breath While in [place] ED patient did develop symptomatic hypoglycemia with blood sugars in the 50s with symptoms of feeling funny . 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 Subsequently returned status post fall 11/24 with worsening back pain, weakness with atypical chest pain, shortness of breath. Medications: Allergies: Allergies Allergen Reactions Beta Adrenergic Blockers Other reaction(s): Headache Hydralazine Headache, nausea, sick Neuromuscular Blocking Agents [Neuromuscular Blocking Agents] After neurotin was prescribed had a stroke Neurontin [Gabapentin] Valium Was on the ground after took it Other Nausea And Vomiting Headache and nausea with some beta blockers Current Meds: Scheduled Meds: warfarin 10 mg Oral Once rivastigmine 1 patch TransDERmal Daily DULoxetine 20 mg Oral Daily cloNIDine 0.1 mg Oral BID insulin glargine 2 Units SubCUTAneous Daily atorvastatin 40 mg Oral Daily [Held by provider] metFORMIN 500 mg Oral BID WC montelukast 10 mg Oral Daily NIFEdipine 90 mg Oral Daily pantoprazole 40 mg Oral Daily topiramate 100 mg Oral BID warfarin placeholder: dosing by pharmacy Other RX Placeholder insulin lispro 0-4 Units SubCUTAneous TID WC insulin lispro 0-4 Units SubCUTAneous Nightly valsartan 160 mg Oral Daily sodium chloride flush 5-40 mL IntraVENous 2 times per day Vitamin D 5,000 Units Oral Daily Continuous Infusions: dextrose sodium chloride PRN Meds: cyclobenzaprine, labetalol, glucose, dextrose bolus OR dextrose bolus, glucagon (rDNA), dextrose, morphine, sodium chloride flush, sodium chloride, potassium chloride OR potassium alternative oral replacement OR potassium chloride, magnesium sulfate, ondansetron OR ondansetron, polyethylene glycol, acetaminophen OR acetaminophen Data: Past Medical History: has a past medical history of Arthritis, Asthma, CHF (congestive heart failure) ([facility]), CKD (chronic kidney disease) stage 2, GFR 60-89 ml/min, Clotting disorder ([facility]), Congenital heart disease, COPD (chronic obstructive pulmonary disease) ([facility]), Depression, Emphysema of lung ([facility]), GERD (gastroesophageal reflux disease), GERD (gastroesophageal reflux disease), Gout, Headache(784.0), Hernia, Hernia, History of blood clots, History of DVT (deep vein thrombosis), Hyperlipidemia, Insomnia, Irritable bowel syndrome, Kidney stones, Lumbar degenerative disc disease, Lumbar radiculopathy, Obesity, PAM (obstructive sleep apnea), Parkinson disease, Parkinson's disease, Post traumatic stress disorder, Renal disease, Rheumatoid arthritis (HCC), Stroke (HCC), Stroke risk, Tracheostomy in place (HCC), Tremors of nervous system, Type II or unspecified type diabetes mellitus without mention of complication, not stated as uncontrolled, Uncontrolled hypertension, and Unspecified cerebral artery occlusion with cerebral infarction. Social History: reports that he has never smoked. He has never been exposed to tobacco smoke. He has quit using smokeless tobacco. His smokeless tobacco use included chew. He reports that he does not drink alcohol and does not use drugs. Family History: Family History Problem Relation Age of Onset Heart Disease Mother Stroke Mother Arthritis Mother High Blood Pressure Mother Heart Disease Father Stroke Father Heart Attack Father High Blood Pressure Father Cancer Paternal Grandfather Substance Abuse Sister High Blood Pressure Sister Substance Abuse Brother High Blood Pressure Maternal Grandmother Heart Disease Maternal Grandmother High Blood Pressure Paternal Grandmother Heart Disease Paternal Grandmother Vitals: BP (!) 156/86 Pulse 82 Temp 98.2 F (36.8 C) (Oral) Resp 18 Ht 1.803 m (5' 11 ) Wt 133.2 kg (293 lb 10.4 oz) SpO2 93% BMI 40.96 kg/m Temp (24hrs), Av.2 F (36.8 C), Min:97.3 F (36.3 C), Max:98.8 F (37.1 C) Recent Labs 12/03/23201112/04/23 0031 12/04/23 0807 12/04/23 1211 POCGLU 232* 161* 120* 184* I/O (24Hr): Intake/Output Summary (Last 24 hours) at 12/04/2023 1459 Last data filed at 12/04/2023 1218 Gross per 24 hour Intake -- Output 1325 ml Net -1325 ml Labs: Hematology: Recent Labs 12/02/23 0523 12/03/23 0559 12/04/23 0331 WBC 11.1 -- -- RBC 4.61 -- -- HGB 14.4 -- -- HCT 46.4 -- -- MCV 100.7 -- -- MCH 31.2 -- -- MCHC 31.0 -- -- RDW 14.2 -- -- PLT 230 -- -- MPV 10.3 -- -- INR 2.8 3.3 3.0 Chemistry: Recent Labs 12/01/23 1554 12/02/23 0523 NA -- 140 K -- 3.7 CL -- 109* CO2 -- 22 GLUCOSE -- 165* BUN -- 36* CREATININE -- 1.5* ANIONGAP -- 9 LABGLOM -- 52* CALCIUM -- 8.8 TROPHS 23* -- Recent Labs 12/03/23 1208 12/03/23 1633 12/03/23201112/04/23 0031 12/04/23 0807 12/04/23 1211 POCGLU 176* 174* 232* 161* 120* 184* ABG: Lab Results Component Value Date/Time PH 7.413 08/22/2011 03:20 PM PCO2 41.5 08/22/2011 03:20 PM PO2ART 92.5 08/22/2011 03:20 PM LER4NEV 26.0 08/22/2011 03:20 PM NBEA NOT REPORTED 08/22/2011 03:20 PM PBEA 1.8 08/22/2011 03:20 PM [id number] 95.6 08/22/2011 03:20 PM FIO2 INFORMATION NOT PROVIDED 11/30/2023 12:05 AM Lab Results Component Value Date/Time SPECIAL NOT REPORTED 10/20/2012 10:15 AM SPECIAL NOT REPORTED 10/20/2012 10:15 AM Lab Results Component Value Date/Time CULTURE NO GROWTH 10/20/2012 10:15 AM CULTURE 10/20/2012 10:15 AM [facility] [address] [address] Radiology: XR CHEST (2 VW) Result Date: 11/29/2023 No acute chest process. No acute intracranial abnormality. Stable metallic probe inserted via the left frontal approach with the tip in the left thalamic area. No obvious complications. CT Head WO Contrast Result Date: 11/29/2023 No acute chest process. No acute intracranial abnormality. Stable metallic probe inserted via the left frontal approach with the tip in the left thalamic area. No obvious complications. Physical Examination: General appearance: alert, cooperative and no distress Mental Status: oriented to person, place and time and normal affect Lungs: clear to auscultation bilaterally, normal effort Heart: regular rate and rhythm, no murmur Abdomen: soft, nontender, nondistended Assessment: Hospital Problems Last Modified POA * (Principal) AMS (altered mental status) 11/28/2023 Yes Lumbar degenerative disc disease (Chronic) 11/30/2023 Yes Diabetic neuropathy (HCC) (Chronic) 11/30/2023 Yes Sleep apnea, obstructive (Chronic) 11/30/2023 Yes Overview Signed 01/25/2014 12:25 PM by Servando Diego MD S/p Tracheotomy Syncope and collapse 12/01/2023 Yes Chronic kidney disease (CKD), stage III (moderate) (HCC) 11/30/2023 Yes Generalized weakness 12/02/2023 Yes CHF (congestive heart failure) ([facility] [facility] 11/30/2023 Yes Uncontrolled hypertension 11/30/2023 Yes Dysphagia 11/30/2023 Yes GERD (gastroesophageal reflux disease) 11/30/2023 Yes S/P deep brain stimulator placement 11/30/2023 Yes Spondylarthrosis 11/30/2023 Yes DM type 2 with diabetic peripheral neuropathy (HCC) 11/30/2023 Yes Altered mental status 11/29/2023 Yes Multiple falls 11/30/2023 Yes Essential tremor 11/30/2023 Yes Staring episodes 12/01/2023 Yes Altered awareness, transient 12/01/2023 Yes Acute encephalopathy 12/02/2023 Yes Neuropathy 12/03/2023 Yes Principal Problem: AMS (altered mental status) Active Problems: Lumbar degenerative disc disease Diabetic neuropathy (HCC) Sleep apnea, obstructive Syncope and collapse Chronic kidney disease (CKD), stage III (moderate) (HCC) Generalized weakness CHF (congestive heart failure) ([facility]) Uncontrolled hypertension Dysphagia GERD (gastroesophageal reflux disease) S/P deep brain stimulator placement 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 * Plan: Acute encephalopathy on admission-resolved Uncontrolled hypertension-valsartan dose was increased yesterday, continue with that. Continue Procardia. Clonidine at home dose Acute on chronic weakness of lower extremities with debility-nonspecific symptoms. Follow neurology and neurosurgery plan. CT cervical spine to be done today Chest pain-has been chronic. No pleuritic component. Follow cardiology plan we were consulted yesterday. No hypoxia no shortness of breath Diabetes mellitus-A1c was 8.8 but had hypoglycemia yesterday. Currently sugars are increasing, will restart Lantus but at only 2 units and then adjust accordingly Recurrent [id number] neurology plan History of prothrombin gene mutation with prior DVT-continue Coumadin CKD stage III-continue to monitor creatinine and will need follow-up with nephrology/PCP PAM on CPAP Discharge planning after the above workup Lori Leblanc MD 12/04/2023 2:59 PM Peer to peer completed on 12/04/2023 and was unsuccessful. They recommend SNF instead of in patient Acute rehab facility. Physician Progress Note PATIENT: ANDRY PIERRE CSN #: [id number] : 1960 ADMIT DATE: 11/29/2023 8:06 PM DISCH DATE: RESPONDING PROVIDER #: Lori Leblanc MD QUERY TEXT: Pt admitted with AMS and has per previous query response Acute encephalopathy due to DM with hypoglycemia documented. Hypoglycemic episodes at outside hospital with blood glucose in 50s . treated with Dextrose blood glucose range since admission of 48-232. H&P notes alert and oriented and follows commands on 11/29. If possible, please document in progress notes and discharge summary further specificity regarding the type of encephalopathy: The medical record reflects the following: Risk Factors: age, DM, Clinical Indicators:admitted with AMS and has per previous query response Acute encephalopathy due to DM with hypoglycemia documented. Hypoglycemic episodes at outside hospital with blood glucose in 50s . treated with Dextrose blood glucose range since admission of 48-232. H&P notes alert and oriented and follows commands on 11/29. Treatment: blood glucose monitoring, Neurology consult, Neuro assessment Thank You Torsten ARIZMENDIN CCDS Email [email or web address] office hours M-F 6am to 2:30p Options provided: -- Metabolic encephalopathy resolved on admission -- Metabolic encephalopathy that was likely still present on admission -- Other - I will add my own diagnosis -- Disagree - Not applicable / Not valid -- Disagree - Clinically unable to determine / Unknown -- Refer to Clinical Documentation Reviewer PROVIDER RESPONSE TEXT: this patient has metabolic encephalopathy that was likely still present on admission Query created by: Abena Fernandez on 12/04/2023 11:08 AM Electronically signed by: Lori Leblanc MD 12/04/2023 2:27 PM SPEECH LANGUAGE PATHOLOGY Speech Language Pathology ST[facility] 1C [facility] Cognitive/Dysphagia Treatment Note Date: 12/04/2023 Patient s Name: Andry Pierre Diagnosis: Patient Active Problem List Diagnosis Code COPD (chronic obstructive pulmonary disease) ([facility]) J44.9 PAM (obstructive sleep apnea) G47.33 Obesity, morbid ([facility]) E66.01 Lumbar degenerative disc disease M51.36 Lumbar radiculopathy M54.16 Lumbar facet arthropathy M47.816 Osteoarthritis of both knees M17.0 Diabetic neuropathy ([facility]) E11.40 Morbid obesity ([facility]) E66.01 Sleep apnea, obstructive G47.33 Encounter for medication monitoring Z51.81 Chronic kidney disease (CKD), stage III (moderate) ([facility]) N18.30 Hyperkalemia E87.5 Generalized weakness R53.1 Pill rolling tremor R25.1 Muscle cramps R25.2 Acute renal failure (ARF) ([facility]) N17.9 Type II or unspecified type diabetes mellitus without mention of complication, not stated as uncontrolled E11.9 Depression F32.A Irritable bowel syndrome K58.9 Obesity E66.9 CHF (congestive heart failure) ([facility]) I50.9 Parkinson disease G20.A1 Tremors of nervous system R25.[address] ([facility]) Z93.0 Bilateral lower extremity edema R60.0 CKD (chronic kidney disease) N18.9 Uncontrolled hypertension I10 Dysphagia R13.10 Hyperlipidemia E78.5 History of DVT (deep vein thrombosis) Z86.718 Congenital heart disease Q24.9 Emphysema of lung ([facility]) J43.9 Hernia K46.9 Stroke risk Z91.89 GERD (gastroesophageal reflux disease) K21.9 Asthma J45.909 Renal disease N28.9 Gout M10.9 S/P deep brain stimulator placement Z96.89 Parkinsons G20.A1 CKD (chronic kidney disease) stage 2, GFR 60-89 ml/min N18.2 Type II or unspecified type diabetes mellitus with renal manifestations, not stated as uncontrolled(250.40) E11.29 Encounter for chronic pain management G89.29 Weight loss, intentional [id number] 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 Primary osteoarthritis of both knees M17.0 DM type 2 with diabetic peripheral neuropathy (HCC) E11.42 Need for immunization against influenza Z23 Morbid obesity due to excess calories (HCC) E66.01 Diabetic mononeuropathy associated with diabetes mellitus due to underlying condition (HCC) E08.41 AMS (altered mental status) R41.82 Altered mental status R41.82 Multiple falls R29.6 Essential tremor G25.0 Syncope and collapse R55 Staring episodes R40.4 Altered awareness, transient R40.4 Acute encephalopathy G93.40 Neuropathy G62.9 Pain: Patient did not complain of any pain. Cognitive Treatment Treatment time: 8922-2085 Subjective: [x] Alert [x] Cooperative [] Confused [] Agitated [] Lethargic Objective/Assessment: Attention: Sustained attention t/o. Orientation: Patient oriented x4. Recall: Delayed Image Recall (house) 90% with min cues (additional time). Organization: Category Inclusion 100% with min cues (additional time and repetition). Category Exclusion 100% with min cues. ST observed patient to have increased delay in response time. Problem Solving/Reasoning: NT Dysphagia: Patient seen for O/M treatment program. Patient completed O/M exercises X 10 X 3 sets with direct model followed by min cues. Patient unable to complete abbe maneuver despite direct models and max cues. Patient able to complete effortful swallow 12X with min cues. Patient and patient's educated re: O/M treatment program rationale and handout left at bedside. Other: Patient's present. Plan: [x] Continue ST services [] Discharge from ST: Discharge recommendations: [x] Further therapy recommended at discharge. [] No therapy recommended at discharge. Treatment completed by: Jimmy Alva, Director Learning Clinician Pharmacy Note Warfarin Consult follow-up Warfarin dose prior to admission: 17.5 mg Sun, 15 mg all other days (per medication management clinic in [place], last visit 11/11; clinic noted recent dose decrease) Warfarin indication: h/o DVT Target INR range: 2-3 Recent Labs 12/04/23 0331 INR 3.0 Recent Labs 12/02/23 0523 HGB 14.4 HCT 46.4 PLT 230 Current warfarin drug-drug interactions: No significant interactions Date INR Dose 11/30 3 10 mg 12/01 2.8 15 mg 12/02 2.8 15 mg 12/03 3.3 Held 3 Notes: - INR decreased slightly from held dose, though not significantly. Will order 10 mg dose for today, a slight reduction from their home dose. Daily PT/INR while inpatient. Images from the original note were not included. NEUROLOGY INPATIENT PROGRESS NOTE 12/04/2023 Current Exam: Chart reviewed. Discussed with RN. He was started on Exelon and Cymbalta, so far tolerating without problems. He is up in the chair, continues with LE weakness however has some fluctuation with exam. He was able to ambulate a short distance with PT yesterday, approx 15 feet. Brief History: Andry Pierre is a 63 y.o. male with H/O CHF, CKD, COPD, depression, severe essential tremor s/p left DBS (2002), prior stroke with residual left sided weakness (2003), diabetic neuropathy, who was admitted on 11/29/2023 with complaints of leg weakness. He was reportedly at a tilt table test when he became altered and was sent to the ED. Ultimately transferred to [facility]. Neurology was consulted for encephalopathy. Patient's reported episodes of confusion with occasional staring spells. No tongue bite or incontinence. EEG was done showing slowing suggesting a mild to moderate encephalopathy. Neurosurgery was consulted for patient's complaint of leg weakness who feel patient does not have any myelopathic symptomatology and symptoms are more suggestive of a diabetic neuropathy. Patient has been seen by neuromuscular neurology at the [facility] on 11/06/2023 with noted essential tremor. Prior myasthenia gravis workup has been negative. EMG reportedly showing diabetic peripheral neuropathy. He does have a DBS so is unable to have MRI studies. At that time it was noted that his exam is consistent with a longstanding history of diabetic polyneuropathy. His strength varied from a 4-5/5 during that visit with note of exam being effort dependent. Upon questioning of the duration of his weakness, he reports his lower extremity weakness has been ongoing for the last 1.5 years with a noticeable change in the last 2 months. No current facility-administered medications on file prior to encounter. Current Outpatient Medications on File Prior to Encounter Medication Sig Dispense Refill lidocaine (LIDODERM) 5 % Place 1 patch onto the skin every 24 hours candesartan (ATACAND) 8 MG tablet Take 1 tablet by mouth daily cetirizine (ZYRTEC) 10 MG tablet Take 1 tablet by mouth daily Insulin Degludec (TRESIBA FLEXTOUCH) 200 UNIT/ML SOPN Inject 60 Units into the skin in the morning and at bedtime montelukast (SINGULAIR) 10 MG tablet TAKE 1 TABLET BY MOUTH EVERY DAY NIFEdipine (PROCARDIA XL) 90 MG extended release tablet TAKE 1 TABLET BY MOUTH EVERY DAY oxybutynin (DITROPAN-XL) 10 MG extended release tablet TAKE 1 TABLET BY MOUTH EVERY DAY potassium chloride (KLOR-CON M) 20 MEQ TBCR extended release tablet Take 1 tablet by mouth daily pantoprazole (PROTONIX) 40 MG tablet TAKE 1 TABLET BY MOUTH EVERY DAY warfarin (COUMADIN) 5 MG tablet Take 1 tablet by mouth atorvastatin (LIPITOR) 40 MG tablet Take 1 tablet by mouth daily 90 tablet 3 topiramate (TOPAMAX) 50 MG tablet Take 2 tablets by mouth 2 times daily take 2 tablets by mouth twice a day 120 tablet 3 BD PEN NEEDLE ANTHONY U/F 32G X 4 MM MISC ACCU-CHEK COMPACT PLUS strip 0 Allergies: Andry Pierre is allergic to beta adrenergic blockers, hydralazine, neuromuscular blocking agents [neuromuscular blocking agents], neurontin [gabapentin], valium, and other. Past Medical History: Diagnosis Date Arthritis Asthma CHF (congestive heart failure) ([facility]) CKD (chronic kidney disease) stage 2, GFR 60-89 ml/min 02/16/2014 Clotting disorder ([facility]) Congenital heart disease COPD (chronic obstructive pulmonary disease) (HCC) Depression Emphysema of lung ([facility]) GERD (gastroesophageal reflux disease) GERD (gastroesophageal reflux disease) Gout Headache(784.0) Hernia Hernia History of blood clots History of DVT (deep vein thrombosis) Hyperlipidemia Insomnia Irritable bowel syndrome Kidney stones Lumbar degenerative disc disease 01/25/2014 Lumbar radiculopathy 01/25/2014 Obesity PAM (obstructive sleep apnea) 11/16/2013 Parkinson disease Parkinson's disease Post traumatic stress disorder Renal disease Rheumatoid arthritis ([facility]) Stroke ([facility]) 2018 Stroke risk Tracheostomy in place ([facility]) 08/22/2011 Tremors of nervous system Type II or unspecified type diabetes mellitus without mention of complication, not stated as uncontrolled Uncontrolled hypertension 06/09/2014 Unspecified cerebral artery occlusion with cerebral infarction x2 Past Surgical History: Procedure Laterality Date ANKLE SURGERY Left APPENDECTOMY BRAIN SURGERY brain stimulator CARDIAC CATHETERIZATION CARPAL TUNNEL RELEASE Right CHOLECYSTECTOMY COLONOSCOPY 06/03/2003 normal COLONOSCOPY DEEP BRAIN STIMULATOR PLACEMENT DIALYSIS FISTULA CREATION 03/06/2014 pt denies, had quiton placed for 2 emergency dialysis treatments HERNIA REPAIR Right Inguinal KNEE ARTHROSCOPY Right NECK SURGERY removed tumor out of neck SINUS SURGERY 10/06/2012 TRACHEOSTOMY 07/06/2013 removed UPPER GASTROINTESTINAL ENDOSCOPY 05/03/2011 ? polyp at GE junction UPPER GASTROINTESTINAL ENDOSCOPY chronic inflammation UVULOPALATOPHARYGOPLASTY Social History: Andry Pierre reports that he has never smoked. He has never been exposed to tobacco smoke. He has quit using smokeless tobacco. His smokeless tobacco use included chew. He reports that he does not drink alcohol and does not use drugs. Family History Problem Relation Age of Onset Heart Disease Mother Stroke Mother Arthritis Mother High Blood Pressure Mother Heart Disease Father Stroke Father Heart Attack Father High Blood Pressure Father Cancer Paternal Grandfather Substance Abuse Sister High Blood Pressure Sister Substance Abuse Brother High Blood Pressure Maternal Grandmother Heart Disease Maternal Grandmother High Blood Pressure Paternal Grandmother Heart Disease Paternal Grandmother Objective: BP (!) 152/86 Pulse 75 Temp 98.8 F (37.1 C) (Oral) Resp 20 Ht 1.803 m (5' 11 ) Wt 133.2 kg (293 lb 10.4 oz) SpO2 94% BMI 40.96 kg/m Blood pressure range: Systolic (24hrs), Av , Min:128 , Max:154 ; Diastolic (24hrs), Av, Min:81, Max:91 Review of Systems: Constitutional Negative for fever and chills HEENT Negative for ear discharge, ear pain, nosebleed Eyes Negative for photophobia, pain and discharge Respiratory Negative for hemoptysis and sputum Cardiovascular Negative for orthopnea, claudication and PND Gastrointestinal Negative for abdominal pain, diarrhea, blood in stool Musculoskeletal Negative for joint pain, negative for myalgia. + generalized weakness Skin Negative for rash or itching Endo/heme/allergies Negative for polydipsia, environmental allergy Psychiatric/behavioral Negative for suicidal ideation. Patient is not anxious NEUROLOGIC EXAMINATION GENERAL Appears comfortable and in no distress HEENT NC/ AT NECK Supple MENTAL STATUS: Alert, oriented, intact memory, no confusion, normal speech, normal language, no hallucination or delusion CRANIAL NERVES: II - Visual weiss intact to confrontation III,IV, - EOMs full, no afferent defect, no JOHN, no ptosis V - Normal facial sensation VII - Normal facial symmetry VIII - Intact hearing IX,X - Symmetrical palate XI - Symmetrical shoulder shrug XII - Midline tongue, no atrophy MOTOR FUNCTION: BUEs 4+/5 strength, BLEs 2/5 as he is unable to lift against gravity with normal bulk, normal tone and no involuntary movements, there is action tremor noted to BUE (L>R) SENSORY FUNCTION: Decreased sensation to BLE CEREBELLAR FUNCTION: Action tremor bilaterally with FTN testing, L>R REFLEX FUNCTION: Absent to BLE, no perverted reflex, no Babinski sign STATION and GAIT Not tested as he states he is not ambulatory at this time Maximum score 5 Score 3 What is the year, season, date, day, month Maximum score 5 Score 4 Where are we: State, county, town, hospital, floor? Maximum score 3 Score 3 Name 3 objects: ball, pen, car. Ask patient to repeat 3 objects. Maximum score 5 Score 1 Serial sevens from 100:93, 86, 79, 72, 65 Maximum score 3 Score 0 Recall 3 objects Maximum score 2 Score 2 Name a pencil and watch. Maximum score 1 Score 1 Repeat the following: No ifs ands or buts. Maximum score 3 Score 3 Follow 3 stage command take a paper in your hand, fold it in half, and put it on the floor. Maximum score 1 Score 1 Read and obey the following: Close your eyes Maximum score 1 Score 1 Write a sentence. Maximum score 1 Score 1 Copy a design below. Max 30 Patient s score 20 Data: Lab Results: CBC: Recent Labs 12/02/23 0523 WBC 11.1 HGB 14.4 PLT 230 BMP: Recent Labs 12/02/23 0523 NA 140 K 3.7 CL 109* CO2 22 BUN 36* CREATININE 1.5* GLUCOSE 165* Lab Results Component Value Date CHOL 203 (H) 07/18/2015 LDLCHOLESTEROL 124 07/18/2015 HDL 32 (L) 07/18/2015 TRIG 233 (H) 07/18/2015 ALT 14 11/29/2023 AST 18 11/29/2023 TSH 0.36 11/30/2023 INR 3.0 12/04/2023 LABA1C 8.8 (H) 11/25/2023 [id number] 397 11/30/2023 MG 2.7 (H) 11/30/2023 PHOS 3.5 11/30/2023 Diagnostic data reviewed: CT HEAD (11/28/23) - No acute chest process. No acute intracranial abnormality. Stable metallic probe inserted via the left frontal approach with the tip in the left thalamic area. No obvious complications. EEG (12/02/23) - This EEG was abnormal. Disorganized and slow background suggested mild to moderate encephalopathy . Impression: -Several month history of progressive memory difficulties; suspected baseline cognitive impairment -History of prior stroke with prothrombin gene mutation as well as history of DVT; on Coumadin -Essential tremor status post left DBS (2002) -Bilateral lower extremity weakness in the setting of severe diabetic neuropathy Plan: -Patient with a 20/30 on MMSE this admission; he has been started on an Exelon patch -Will trial low dose Cymbalta for patient's neuropathy symptoms. Prior intolerance to Gabapentin and Lyrica -Neurosurgery evaluated the patient with no evidence of cervical myelopathy and no surgical intervention at this time -Continue therapies -We will sign off. Please call with any questions. He will need outpatient follow up with neurology that he reports is already scheduled through his PCP in [place]. Please note that this note was generated using a voice recognition dictation software. Although every effort was made to ensure the accuracy of this automated barrel rifler broach, some errors in barrel rifler broach may have occurred. Pharmacy Note Warfarin Consult follow-up Warfarin dose prior to admission: 17.5 mg Sun, 15 mg all other days (per medication management clinic in [place], last visit 11/11; clinic noted recent dose decrease) Warfarin indication: h/o DVT Target INR range: 2-3 Recent Labs 12/03/23 0559 INR 3.3 Recent Labs 12/01/23 0606 12/02/23 0523 HGB 14.6 14.4 HCT 46.3 46.4 PLT 223 230 Current warfarin drug-drug interactions: / Date INR Dose 11/30 3 10 mg 12/01 2.8 15 mg 12/02 2.8 15 mg 12/03 3.3 Notes: - INR supratherapeutic - In anticipation of further INR increase will HOLD warfarin today - Will watch closely as there is a possibility for INR decline from held dose if the patient is sensitive to dose changes Daily PT/INR while inpatient. Nolan Mccarty PharmD, 12/03/2023 4:34 PM Physical Therapy Facility/Department: [address] [facility] Physical Therapy Daily Treatment Note Name: Andry Pierre : 1960 Date of Service: 12/03/2023 Discharge Recommendations: Patient would benefit from continued therapy after discharge PT Equipment Recommendations Equipment Needed: No Patient Diagnosis(es): There were no encounter diagnoses. Past Medical History: has a past medical history of Arthritis, Asthma, CHF (congestive heart failure) ([facility]), CKD (chronic kidney disease) stage 2, GFR 60-89 ml/min, Clotting disorder ([facility]), Congenital heart disease, COPD (chronic obstructive pulmonary disease) ([facility]), Depression, Emphysema of lung ([facility]), GERD (gastroesophageal reflux disease), GERD (gastroesophageal reflux disease), Gout, Headache(784.0), Hernia, Hernia, History of blood clots, History of DVT (deep vein thrombosis), Hyperlipidemia, Insomnia, Irritable bowel syndrome, Kidney stones, Lumbar degenerative disc disease, Lumbar radiculopathy, Obesity, PAM (obstructive sleep apnea), Parkinson disease, Parkinson's disease, Post traumatic stress disorder, Renal disease, Rheumatoid arthritis (HCC), Stroke (HCC), Stroke risk, Tracheostomy in place (HCC), Tremors of nervous system, Type II or unspecified type diabetes mellitus without mention of complication, not stated as uncontrolled, Uncontrolled hypertension, and Unspecified cerebral artery occlusion with cerebral infarction. Past Surgical History: has a past surgical history that includes Appendectomy; Ankle surgery (Left); Carpal tunnel release (Right); Neck surgery; sinus surgery (10/06/2012); Knee arthroscopy (Right); brain surgery; Cardiac catheterization; tracheostomy (07/06/2013); Deep brain stimulator placement; Dialysis fistula creation (03/06/2014); Upper gastrointestinal endoscopy (05/03/2011); Colonoscopy (06/03/2003); hernia repair (Right); Upper gastrointestinal endoscopy (); Uvulopalatopharygoplasty; Colonoscopy (); and Cholecystectomy. Assessment Body Structures, Functions, Activity Limitations Requiring Skilled Therapeutic Intervention: Decreased functional mobility ;Decreased tolerance to work activity;Decreased strength;Decreased endurance;Decreased balance;Increased pain Assessment: pt demonstrates sit to stand requiring ModA x 2, performing weight shifting within RW before attempting to ambulate. Increased time to advance LE. MinAx2 needed for gait, with chair follow. After completing 7ft of ambulating, pt rest in chair before attempting additional 8ft. pt demonstrates decreased step height and length. pt stands from sitting using bilateral UE's pushing through chair arms and LE's to stand to RW. Pt will continue to benefit from PT intervention to progress functional abilty and mobility needed to regain prior level of safety and function Therapy Prognosis: Good Activity Tolerance Activity Tolerance: Other (comment);Patient limited by endurance;Patient limited by pain;Patient limited by fatigue Plan Physical Therapy Plan General Plan: (5-6x week) Current Treatment Recommendations: Strengthening, Balance training, Functional mobility training, Transfer training, Endurance training, Gait training, Neuromuscular re-education, Stair training, Therapeutic activities, Home exercise program Additional Comments: Progress activity as indicated and tolerated due to fluccuating abilies Safety Devices Type of Devices: Patient at risk for falls, Left in chair, Gait belt, Call light within reach, Chair alarm in place Restraints Restraints Initially in Place: No Restrictions Restrictions/Precautions Restrictions/Precautions: Up as Tolerated, Fall Risk, General Precautions Required Braces or Orthoses?: No Position Activity Restriction Other position/activity restrictions: Up as tolerated, orthostatic checks . Pt report progressive LE weakness more frequent falls, activity as tolerated up with assist , pt had DBS in place Subjective General Patient assessed for rehabilitation services?: Yes Additional Pertinent Hx: 63 y.o. male who presents with bilateral lower extremity weakness Pending CT cervical spine Neuro checks per floor protocol, oethostatic monitored Response To Previous Treatment: Patient with no complaints from previous session. Family / Caregiver Present: Yes (family in room during session.) Follows Commands: Within Functional Limits General Comment Comments: pt sitting in bedside chair upon investigative writer entering room. pt retired to bedside chair with call light and bedside table within reach. BLE elevated. Chair alarm set. Subjective Subjective: RN and pt agreeable to work with therapy. pt states having pain in LLE 8/10. pt was adjusted for comfort end of session. Cognition Orientation Overall Orientation Status: Within Functional Limits Orientation Level: Oriented X4 Cognition Overall Cognitive Status: WFL Cognition Comment: pt having conversation with therapists and family throughout session. Objective Bed mobility Supine to Sit: Unable to assess (Simultaneous filing. User may not have seen previous data.) Sit to Supine: Unable to assess (Simultaneous filing. User may not have seen previous data.) Bed Mobility Comments: pt in bedside chair begining of session, and retired to bedside chair end of session. (Simultaneous filing. User may not have seen previous data.) Transfers Sit to Stand: Moderate Assistance;2 Person Assistance Stand to Sit: Moderate Assistance;2 Person Assistance Ambulation Surface: Level tile Device: Rolling Walker Other Apparatus: (chair follow) Assistance: Minimal assistance;2 Person assistance Quality of Gait: pt stood at bedside chair, in RW, requiring Ryan x1 for static standing. pt able to weight shift, heavy on RW when ambulating. Gait is very slow, increased time to advance LE. pt is motivated to move and participate. Gait Deviations: Slow Raegan;Increased PAIGE;Decreased step height;Decreased step length Distance: 7ft + 8ft with seated rest break between ambulating. Comments: No noticable LE buckling during standing/ambulating. More Ambulation?: No Balance Posture: Good Sitting - Static: Good Sitting - Dynamic: Good Standing - Static: Fair Standing - Dynamic: Fair;- Comments: Standing balance assessed to RW, Sitting balance assessed to EOC. A/AROM Exercises: Seated LE exercise program: Long Arc Quads, hip abduction/adduction, heel/toe raises, and marches. Reps: 10 OutComes Score [facility] - Mobility AM-[facility] Basic Mobility - Inpatient How much help is needed turning from your back to your side while in a flat bed without using bedrails?: None How much help is needed moving from lying on your back to sitting on the side of a flat bed without using bedrails?: A Little How much help is needed moving to and from a bed to a chair?: A Little How much help is needed standing up from a chair using your arms?: A Little How much help is needed walking in hospital room?: A Lot How much help is needed climbing 3-5 steps with a railing?: A Lot [facility] Inpatient Mobility Raw Score : 17 [facility] Inpatient T-Scale Score : 42.13 Mobility Inpatient CMS 0-100% Score: 50.57 Mobility Inpatient CMS G-Code Modifier : CK Goals Short Term Goals Time Frame for Short Term Goals: 14 visits Short Term Goal 1: Pt to ambulate 50 ft mod I with least AD Short Term Goal 2: Pt to transfer from alternate surface heights with Min A demonstrating safety with AD Short Term Goal 3: Pt to ascend/descend 4 steps with Mod I and rigth railing Short Term Goal 4: Pt to be provided verbal, written and practical instruction in bilateral LE ROM exercises to improve general strength and activity tolerance. Patient Goals Patient Goals : To return home Education Patient Education Education Given To: Patient Education Provided: Role of Therapy;Plan of Care;Transfer Training;Equipment;Fall Prevention Strategies;Home Exercise Program Education Provided Comments: Pt educated on fall risk, safety with use of walker vs cane due to progressive weakness and multiple falls. Education Method: Verbal Barriers to Learning: None Education Outcome: Verbalized understanding;Continued education needed Therapy Time Individual Concurrent Group Co-treatment Time In 1426 Time Out 1455 Minutes 29 Timed Code Treatment Minutes: 20 Minutes Co- treatment with OT warranted secondary to decreased patient safety and independence with functional mobility requiring skilled physical assistance of two professionals to simultaneously address individualized discipline goals. PT is addressing balance, BLE strengthening , while OT is addressing their individualized functional mobility/self-care task. 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 Past Medical History: has a past medical history of Arthritis, Asthma, CHF (congestive heart failure) ([facility]), CKD (chronic kidney disease) stage 2, GFR 60-89 ml/min, Clotting disorder ([facility]), Congenital heart disease, COPD (chronic obstructive pulmonary disease) ([facility]), Depression, Emphysema of lung ([facility]), GERD (gastroesophageal reflux disease), GERD (gastroesophageal reflux disease), Gout, Headache(784.0), Hernia, Hernia, History of blood clots, History of DVT (deep vein thrombosis), Hyperlipidemia, Insomnia, Irritable bowel syndrome, Kidney stones, Lumbar degenerative disc disease, Lumbar radiculopathy, Obesity, PAM (obstructive sleep apnea), Parkinson disease, Parkinson's disease, Post traumatic stress disorder, Renal disease, Rheumatoid arthritis ([facility]), Stroke ([facility]), Stroke risk, Tracheostomy in place ([facility]), Tremors of nervous system, Type II or unspecified type diabetes mellitus without mention of complication, not stated as uncontrolled, Uncontrolled hypertension, and Unspecified cerebral artery occlusion with cerebral infarction. Past Surgical History: has a past surgical history that includes Appendectomy; Ankle surgery (Left); Carpal tunnel release (Right); Neck surgery; sinus surgery (10/06/2012); Knee arthroscopy (Right); brain surgery; Cardiac catheterization; tracheostomy (07/06/2013); Deep brain stimulator placement; Dialysis fistula creation (03/06/2014); Upper gastrointestinal endoscopy (05/03/2011); Colonoscopy (06/03/2003); hernia repair (Right); Upper gastrointestinal endoscopy (); Uvulopalatopharygoplasty; Colonoscopy (); and Cholecystectomy. Assessment Performance deficits / Impairments: Decreased functional mobility ;Decreased ADL status;Decreased strength;Decreased endurance;Decreased balance;Decreased coordination;Decreased high-level IADLs;Decreased fine motor control Assessment: Pt limited by pain in LLE and decreased balance w/ standing/mobility this date. Pt completed LB dressing task while seated in recliner for energy conservation. Pt MOD A x2 for STS from chair w/ heavy reliance on B arm rests to initiate, MIN A x2 for mobility w/ RW and chair follow for pt safety d/t fatigue. Pt would benefit from continued OT to address above deficits. Prognosis: Good Activity Tolerance Activity Tolerance: Patient Tolerated treatment well;Patient limited by pain Plan Occupational Therapy Plan Times Per Week: 3-5x Current Treatment Recommendations: Strengthening, ROM, Balance training, Functional mobility training, Endurance training, Cognitive reorientation, Gait training, Self-Care / ADL, Home management training, Coordination training Restrictions Restrictions/Precautions Restrictions/Precautions: Up as Tolerated, Fall Risk, General Precautions Required Braces or Orthoses?: No Position Activity Restriction Other position/activity restrictions: Up as tolerated, orthostatic checks . Pt report progressive LE weakness more frequent falls, activity as tolerated up with assist , pt had DBS in place Subjective General Patient assessed for rehabilitation services?: Yes Additional Pertinent Hx: fall - still in pain from fall Response to previous treatment: Patient with no complaints from previous session Family / Caregiver Present: Yes (family) Diagnosis: AMS, COPD General Comment Comments: RN ok'd pt for OT/PT this date. Pt agreeable, pleasant and cooperative t/o. Pt reported 8/10 pain in LLE. Pt in chair upon arrival, engaged in activity and was repositioned in chair for comfort w/ all needs met at end of session. Objective Safety Devices Type of Devices: Patient at risk for falls;Left in chair;Gait belt;Call light within reach;Chair alarm in place Restraints Restraints Initially in Place: No Balance Sitting: With support (Pt seated in recliner for static/dynamic activity SBA ~20 mins. Pt able to sit unsupported EOC by completing trunk flexion w/ use of B arm rests. Increased time/effort needed.) Standing: With support (Pt stood w/ RW in prep for functional mobility w/ MIN A x1 for static standing d/t unsteadiness. Pt stood ~7 mins total w/ seated rest break in between d/t fatigue.) Transfer Training Transfer Training: Yes Overall Level of Assistance: Moderate assistance;Assist X2;Additional time;Adaptive equipment (2 STS completed from chair w/ RW MOD A x2. Pt heavily relied on B arm rests for initiation of stand.) Interventions: Safety awareness training;Verbal cues (body mechanics, safety) Sit to Stand: Moderate assistance;Assist X2;Additional time;Adaptive equipment Stand to Sit: Moderate assistance;Assist X2;Additional time;Adaptive equipment Gait Assistive Device: Walker, rolling;Gait belt ADL LE Dressing: Stand by assistance;Increased time to complete LE Dressing Skilled Clinical Factors: Pt sat in recliner to doff/don B socks using fig 4 tech. Pt alternated lifting BLEs on to knee by pulling pant leg for sock mgmt. Functional Mobility: Minimal assistance;Adaptive equipment;Increased time to complete Functional Mobility Skilled Clinical Factors: Pt completed functional mobility in room w/ RW MIN A x2. Pt unsteady t/o and required chair-follow for safety. Pt demos slow raegan and fatigues quickly, one rest break needed in chair. Additional Comments: Pt declined further ADLs d/t having completed them earlier in the day. Activity Tolerance Activity Tolerance: Patient limited by endurance;Patient limited by pain;Patient limited by fatigue Bed mobility Sit to Supine: Unable to assess Supine to Sit: Unable to assess Scooting: Contact guard assistance Bed Mobility Comments: Pt in chair upon entry/exit. Able to scoot and reposition in chair w/ utilization of arm rests. Cognition Overall Cognitive Status: [facility] Cognition Comment: pt having conversation with therapists and family throughout session. Orientation Overall Orientation Status: Within Functional Limits Orientation Level: Oriented X4 Education Given To: Patient;Family Education Provided: Role of Therapy;ADL Adaptive Strategies;Transfer Training;Orientation;Equipment;E nergy Conservation Education Provided Comments: OT role, transfer safety, AD use, ADLs. Good return. Education Method: Verbal Barriers to Learning: None Education Outcome: Verbalized understanding;Demonstrated understanding AM-PAC - ADL AM-PAC Daily Activity - Inpatient How much help is needed for putting on and taking off regular lower body clothing?: A Lot How much help is needed for bathing (which includes washing, rinsing, drying)?: A Lot How much help is needed for toileting (which includes using toilet, bedpan, or urinal)?: A Little How much help is needed for putting on and taking off regular upper body clothing?: A Little How much help is needed for taking care of personal grooming?: None How much help for eating meals?: None AM-P[facility] Inpatient Daily Activity Raw Score: 18 AM-[facility] Inpatient ADL T-Scale Score : 38.66 ADL Inpatient CMS 0-100% Score: 46.65 ADL Inpatient CMS G-Code Modifier : CK Goals Short Term Goals Time Frame for Short Term Goals: By discharge pt will... Short Term Goal 1: complete LB bathing/dressing activity with SUP using LRD PRN Short Term Goal 2: complete UB bathing/dressing activity with IND Short Term Goal 3: complete all functional transfers with SUP using LRD PRN Short Term Goal 4: Demo saftey awareness during func mob household distance with SUP and 1 vc using LRD PRN Short Term Goal 5: Demo standing balance during dynamic ADL activity for 10+ mins with SUP using LRD PRN Short Term Goal 6: demo 5 step functional task with 1 or less VCs to address cog cncerns Therapy Time Individual Concurrent Group Co-treatment Time In 1426 Time Out 1455 Minutes 29 Timed Code Treatment Minutes: 15 Minutes (co-tx w/ EXERCISE SCIENCE INSTRUCTOR for safety) CAROLE Arriola Physician Progress Note PATIENT: ANDRY PIERRE CSN #: [id number] : 1960 ADMIT DATE: 11/29/2023 8:06 PM DISCH DATE: RESPONDING PROVIDER #: Lori Leblanc MD QUERY TEXT: Pt presented with acute recurrent weakness . Pt noted to have documentation in 11/30 medicine notes of Acute recurrent weakness with debility with recurrent falls With prior history of stroke with residual weakness, diabetic neuropathy. Neurology consult notes states symptoms suggestive of diabetic neuropathy. in progress notes on 12/02. co morbid conditions of history of CVA, Parkinsons disease and DM. Please clarify one of the following: The medical record reflects the following: Risk Factors: age, history of CVA, dm, Parkinson disease Clinical Indicators: presented with acute recurrent weakness . Pt noted to have documentation in 11/30 medicine notes of Acute recurrent weakness with debility with recurrent falls With prior history of stroke with residual weakness, diabetic neuropathy. Neurology consult notes states symptoms suggestive of diabetic neuropathy. in progress notes on 12/02. co morbid conditions of history of CVA, Parkinsons disease and DM Treatment: Neurology progress note, CT of cervical thoracic and lumbar spine, blood glucose monitoring, Thank You Torsten LEES BSN CCDS Email [email or web address] office hours M-F 6am to 2:30p Options provided: -- Acute recurrent weakness due to diabetic neuropathy -- Acute recurrent weakness due to a sequela of CVA -- Acute recurrent weakness due to combination of diabetic neuropathy complicated by CVA sequela -- Acute recurrent weakness unrelated to previous CVA and diabetic neuropathy -- Other - I will add my own diagnosis -- Disagree - Not applicable / Not valid -- Disagree - Clinically unable to determine / Unknown -- Refer to Clinical Documentation Reviewer PROVIDER RESPONSE TEXT: Acute recurrent weakness due to diabetic neuropathy Query created by: Abena Fernandez on 12/03/2023 11:57 AM Electronically signed by: Lori Leblanc MD 12/03/2023 12:00 PM Images from the original note were not included. [facility] Office: [phone] Alberto Rice DO, Luciano Murphy DO, Humza James DO, Jc Maria DO, Nancy Paz MD, Naz Cruz MD, Demetrio Patel MD, Hortensia Maynard MD, Filiberto Vizcaino MD, Polly Ramos MD, Julia Blanco MD, Bibi Kim DO, Yaneli Lugo MD, Chepe Pfeiffer MD, Andry Rice DO, Jamia Nur MD, Obi Alford DO, Jacquelyn Roper MD, Almita Moya MD, Jackie Rivas MD, Kylie Morales MD, Pasha Roy MD, Daniel Swenson MD, Marvin Sneed MD, Abdirahman Hunt MD, Da Moore MD, Geneva Casiano MD, Matthew Perez DO, Tk Connor DO, Jess Parker MD, Garett Valentine MD, Rosalia Mobley, DIRECTOR OF STUDENT FINANCIAL AID, Criss Gray, DIRECTOR OF STUDENT FINANCIAL AID, Lefty Matute, DIRECTOR OF STUDENT FINANCIAL AID, Brittny Quinones, COLTON, Kacey Meeks, DIRECTOR OF STUDENT FINANCIAL AID, Sugey Barillas, DIRECTOR OF STUDENT FINANCIAL AID, Mary Jo Bonner, DIRECTOR OF STUDENT FINANCIAL AID, Kathy Granados, DIRECTOR OF STUDENT FINANCIAL AID, Sigrid Velásquez, DIRECTOR OF STUDENT FINANCIAL AID, Janine Turpin, PA-C, Sue Willams, PA-C, Savi Iqbal, DIRECTOR OF STUDENT FINANCIAL AID, Beckie Mello, DIRECTOR OF STUDENT FINANCIAL AID, Nora Mace, DIRECTOR OF STUDENT FINANCIAL AID, Jyoti Rojo, VENDING TECHNICIAN, Ronda Sellers, DIRECTOR OF STUDENT FINANCIAL AID, Janell Hoyt, DIRECTOR OF STUDENT FINANCIAL AID, Cayrl Gonzalez, DIRECTOR OF STUDENT FINANCIAL AID [facility] IN-PATIENT SERVICE [facility] Progress Note 12/03/2023 12:01 PM Name: Andry Pierre Acct: [id number] Room: [facility]3/0143-01 Day: 4 Admit Date: 11/29/2023 8:06 PM PCP: Say Mccormick MD Code Status: Full Code Subjective: C/C: chest pain and dizziness Interval History Status: not changed. Patient tried to work with therapy but could not stand up. He said he felt too weak. Also felt dizzy. He says he has chronic chest pain for the last few months. Blood sugar is getting elevated now. Blood pressure is slightly on the higher side but he is allergic to multiple medications. Bp stable today. Pending Placement Brief History: Per documentation Andry Pierre is a 63 y.o. 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 and is admitted to the hospital for the management of AMS (altered mental status). Patient transferred from [place] after undergoing tilt table evaluation for concern for orthostasis on 11/28/2022 with history of recurrent episodes of dizziness with history of stroke, complicated history. tilt table test complicated by worsening acute symptoms of dizziness with chest pain with altered sensorium. Although tilt test unremarkable for orthostasis, patient was evaluated in ED with acute symptoms and recommended admission pending transfer to [facility] for neurology evaluation. Unfortunately with bed availability transfer was delayed until today. Patient with multiple somatic complaints. Describes worsening sciatica with increasing leg weakness with worsening pain status post recent fall November 24 with worsening radicular symptoms and neck and lumbar spine. He does describe frequent episodes of chest pain 5-6 times daily lasting minutes midsternum with crushing type symptoms radiating to his neck. Describes occasional nausea . Unintentional weight loss of 20 pounds in the past month with poor p.o. intake. Constant neck pain with recurrent headaches. Intermittent choking episodes with dysphagia. Recurrent episodes of palpitations daily lasting minutes sometimes associated with the chest pain, sometimes not with occasional shortness of breath While in [place] ED patient did develop symptomatic hypoglycemia with blood sugars in the 50s with symptoms of feeling funny . 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 Subsequently returned status post fall 11/24 with worsening back pain, weakness with atypical chest pain, shortness of breath. Medications: Allergies: Allergies Allergen Reactions Beta Adrenergic Blockers Other reaction(s): Headache Hydralazine Headache, nausea, sick Neuromuscular Blocking Agents [Neuromuscular Blocking Agents] After neurotin was prescribed had a stroke Neurontin [Gabapentin] Valium Was on the ground after took it Other Nausea And Vomiting Headache and nausea with some beta blockers Current Meds: Scheduled Meds: cloNIDine 0.1 mg Oral BID insulin glargine 2 Units SubCUTAneous Daily atorvastatin 40 mg Oral Daily [Held by provider] metFORMIN 500 mg Oral BID WC montelukast 10 mg Oral Daily NIFEdipine 90 mg Oral Daily pantoprazole 40 mg Oral Daily topiramate 100 mg Oral BID warfarin placeholder: dosing by pharmacy Other RX Placeholder insulin lispro 0-4 Units SubCUTAneous TID insulin lispro 0-4 Units SubCUTAneous Nightly valsartan 160 mg Oral Daily sodium chloride flush 5-40 mL IntraVENous 2 times per day Vitamin D 5,000 Units Oral Daily Continuous Infusions: dextrose sodium chloride PRN Meds: labetalol, glucose, dextrose bolus OR dextrose bolus, glucagon (rDNA), dextrose, morphine, sodium chloride flush, sodium chloride, potassium chloride OR potassium alternative oral replacement OR potassium chloride, magnesium sulfate, ondansetron OR ondansetron, polyethylene glycol, acetaminophen OR acetaminophen Data: Past Medical History: has a past medical history of Arthritis, Asthma, CHF (congestive heart failure) ([facility]), CKD (chronic kidney disease) stage 2, GFR 60-89 ml/min, Clotting disorder ([facility]), Congenital heart disease, COPD (chronic obstructive pulmonary disease) ([facility]), Depression, Emphysema of lung ([facility]), GERD (gastroesophageal reflux disease), GERD (gastroesophageal reflux disease), Gout, Headache(784.0), Hernia, Hernia, History of blood clots, History of DVT (deep vein thrombosis), Hyperlipidemia, Insomnia, Irritable bowel syndrome, Kidney stones, Lumbar degenerative disc disease, Lumbar radiculopathy, Obesity, PAM (obstructive sleep apnea), Parkinson disease, Parkinson's disease, Post traumatic stress disorder, Renal disease, Rheumatoid arthritis ([facility]), Stroke ([facility]), Stroke risk, Tracheostomy in place ([facility]), Tremors of nervous system, Type II or unspecified type diabetes mellitus without mention of complication, not stated as uncontrolled, Uncontrolled hypertension, and Unspecified cerebral artery occlusion with cerebral infarction. Social History: reports that he has never smoked. He has never been exposed to tobacco smoke. He has quit using smokeless tobacco. His smokeless tobacco use included chew. He reports that he does not drink alcohol and does not use drugs. Family History: Family History Problem Relation Age of Onset Heart Disease Mother Stroke Mother Arthritis Mother High Blood Pressure Mother Heart Disease Father Stroke Father Heart Attack Father High Blood Pressure Father Cancer Paternal Grandfather Substance Abuse Sister High Blood Pressure Sister Substance Abuse Brother High Blood Pressure Maternal Grandmother Heart Disease Maternal Grandmother High Blood Pressure Paternal Grandmother Heart Disease Paternal Grandmother Vitals: BP (!) 142/91 Pulse 79 Temp 97.8 F (36.6 C) (Oral) Resp 17 Ht 1.803 m (5' 11 ) Wt 133.2 kg (293 lb 10.4 oz) SpO2 98% BMI 40.96 kg/m Temp (24hrs), Av.8 F (36.6 C), Min:97.5 F (36.4 C), Max:98 F (36.7 C) Recent Labs 12/02/23120312/02/23 16012/02/23195412/03/23 0759 POCGLU 172* 169* 179* 83 I/O (24Hr): Intake/Output Summary (Last 24 hours) at 12/03/2023 1201 Last data filed at 12/03/2023 0605 Gross per 24 hour Intake 444 ml Output 1175 ml Net -731 ml Labs: Hematology: Recent Labs 12/01/23 0606 12/02/23 0523 12/03/23 0559 WBC 10.9 11.1 -- RBC 4.68 4.61 -- HGB 14.6 14.4 -- HCT 46.3 46.4 -- MCV 98.9 100.7 -- MCH 31.2 31.2 -- MCHC 31.5 31.0 -- RDW 14.4 14.2 -- PLT 223 230 -- MPV 10.4 10.3 -- INR 2.8 2.8 3.3 Chemistry: Recent Labs 12/01/23 0612/01/23 1554 12/02/23 05 NA 140 -- 140 K 3.8 -- 3.7 CL 108* -- 109* CO2 22 -- 22 GLUCOSE 144* -- 165* BUN 39* -- 36* CREATININE 1.6* -- 1.5* ANIONGAP 10 -- 9 LABGLOM 48* -- 52* CALCIUM 8.9 -- 8.8 PSA 1.50 -- -- TROPHS -- 23* -- Recent Labs 12/01/23200312/02/23 07512/02/23 12012/02/23160512/02/23195412/03/23 0759 POCGLU 168* 117* 172* 169* 179* 83 ABG: Lab Results Component Value Date/Time PH 7.413 08/22/2011 03:20 PM PCO2 41.5 08/22/2011 03:20 PM PO2ART 92.5 08/22/2011 03:20 PM VSO7BAP 26.0 08/22/2011 03:20 PM NBEA NOT REPORTED 08/22/2011 03:20 PM PBEA 1.8 08/22/2011 03:20 PM N3PKLLYG 95.6 08/22/2011 03:20 PM FIO2 INFORMATION NOT PROVIDED 11/30/2023 12:05 AM Lab Results Component Value Date/Time SPECIAL NOT REPORTED 10/20/2012 10:15 AM SPECIAL NOT REPORTED 10/20/2012 10:15 AM Lab Results Component Value Date/Time CULTURE NO GROWTH 10/20/2012 10:15 AM CULTURE 10/20/2012 10:15 AM Performed at [facility] [address] [place] [id number] Radiology: XR CHEST (2 VW) Result Date: 11/29/2023 No acute chest process. No acute intracranial abnormality. Stable metallic probe inserted via the left frontal approach with the tip in the left thalamic area. No obvious complications. CT Head WO Contrast Result Date: 11/29/2023 No acute chest process. No acute intracranial abnormality. Stable metallic probe inserted via the left frontal approach with the tip in the left thalamic area. No obvious complications. Physical Examination: General appearance: alert, cooperative and no distress Mental Status: oriented to person, place and time and normal affect Lungs: clear to auscultation bilaterally, normal effort Heart: regular rate and rhythm, no murmur Abdomen: soft, nontender, nondistended Assessment: Hospital Problems Last Modified POA * (Principal) AMS (altered mental status) 11/28/2023 Yes Lumbar degenerative disc disease (Chronic) 11/30/2023 Yes Diabetic neuropathy (HCC) (Chronic) 11/30/2023 Yes Sleep apnea, obstructive (Chronic) 11/30/2023 Yes Overview Signed 01/25/2014 12:25 PM by Servando Diego MD S/p Tracheotomy Syncope and collapse 12/01/2023 Yes Chronic kidney disease (CKD), stage III (moderate) ([facility]) 11/30/2023 Yes Generalized weakness 12/02/2023 Yes CHF (congestive heart failure) ([facility]) 11/30/2023 Yes Uncontrolled hypertension 11/30/2023 Yes Dysphagia 11/30/2023 Yes GERD (gastroesophageal reflux disease) 11/30/2023 Yes S/P deep brain stimulator placement 11/30/2023 Yes Spondylarthrosis 11/30/2023 Yes DM type 2 with diabetic peripheral neuropathy (HCC) 11/30/2023 Yes Altered mental status 11/29/2023 Yes Multiple falls 11/30/2023 Yes Essential tremor 11/30/2023 Yes Staring episodes 12/01/2023 Yes Altered awareness, transient 12/01/2023 Yes Acute encephalopathy 12/02/2023 Yes Principal Problem: AMS (altered mental status) Active Problems: Lumbar degenerative disc disease Diabetic neuropathy (HCC) Sleep apnea, obstructive Syncope and collapse Chronic kidney disease (CKD), stage III (moderate) (HCC) Generalized weakness CHF (congestive heart failure) (HCC) Uncontrolled hypertension Dysphagia GERD (gastroesophageal reflux disease) S/P deep brain stimulator placement 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 * Plan: Acute encephalopathy on admission-resolved Uncontrolled hypertension-valsartan dose was increased yesterday, continue with that. Continue Procardia. Clonidine at home dose Acute on chronic weakness of lower extremities with debility-nonspecific symptoms. Follow neurology and neurosurgery plan. CT cervical spine to be done today Chest pain-has been chronic. No pleuritic component. Follow cardiology plan we were consulted yesterday. No hypoxia no shortness of breath Diabetes mellitus-A1c was 8.8 but had hypoglycemia yesterday. Currently sugars are increasing, will restart Lantus but at only 2 units and then adjust accordingly Recurrent CCGy-[id number] neurology plan History of prothrombin gene mutation with prior DVT-continue Coumadin CKD stage III-continue to monitor creatinine and will need follow-up with nephrology/PCP PAM on CPAP Discharge planning after the above workup Lori Leblanc MD 12/03/2023 12:01 PM Physician Progress Note PATIENT: ANDRY PIERRE CSN #: [id number] : 1960 ADMIT DATE: 11/29/2023 8:06 PM DISCH DATE: RESPONDING PROVIDER #: Lori Leblanc MD QUERY TEXT: Pt admitted presented from outside hospital where he presented with dizziness chest pain and altered sensorium . Pt noted to have documentation of Acute encephalopathy In H&P on 11/29 and noted as resolved in progress notes 11/30-12/02. Progress notes had recurrent episodes of dizziness and had hypoglycemia in outside hospital with blood sugars in 50s. also noted recurrent TIA/CVA in progress notes on 12/01 and 12/02.If possible, please clarify one of the following: The medical record reflects the following: Risk Factors: age, Parkinsons disease, history of CVA, DM Clinical Indicators:admitted presented from outside hospital where he presented with dizziness chest pain and altered sensorium . Pt noted to have documentation of Acute encephalopathy In H&P on 11/29 and noted as resolved in progress notes 11/30-12/02. Progress notes had recurrent episodes of dizziness and had hypoglycemia in outside hospital with blood sugars in 50s. also noted recurrent TIA/CVA in progress notes on 12/01 and 12/02 Treatment: Neuro consult blood glucose monitoring, Thank You Torsten LEES BSN CCDS Email [email or web address] office hours M-F 6am to 2:30p Options provided: -- Acute encephalopathy due to recurrent TIA -- Acute encephalopathy due to DM with hypoglycemia episodes -- Acute encephalopathy due to combination of TIA and DM with hypoglycemic episodes -- Acute encephalopathy unrelated to recurrent TIA and DM with hypoglycemic episodes -- Acute encephalopathy due to please specify likely cause, please specify likely cause -- Other - I will add my own diagnosis -- Disagree - Not applicable / Not valid -- Disagree - Clinically unable to determine / Unknown -- Refer to Clinical Documentation Reviewer PROVIDER RESPONSE TEXT: this patient has Acute encephalopathy due to combination of TIA and DM with hypoglycemic episodes Query created by: Abena Fernandez on 12/03/2023 11:42 AM Electronically signed by: Lori Leblanc MD 12/03/2023 11:50 AM Images from the original note were not included. NEUROLOGY INPATIENT PROGRESS NOTE 12/03/2023 Current Exam: Chart reviewed. Discussed with RN. Patient is in the chair, states he continues to have weakness to both his arms and legs. Patient reports he is not able to lift his legs off the ground at time of exam but RN does report he was able to stand and take a couple of short steps to use the restroom earlier. Brief History: Andry Pierre is a 63 y.o. male with H/O CHF, CKD, COPD, depression, severe essential tremor s/p left DBS (2002), prior stroke with residual left sided weakness (2003), diabetic neuropathy, who was admitted on 11/29/2023 with complaints of leg weakness. He was reportedly at a tilt table test when he became altered and was sent to the ED. Ultimately transferred to [facility]. Neurology was consulted for encephalopathy. Patient's reported episodes of confusion with occasional staring spells. No tongue bite or incontinence. EEG was done showing slowing suggesting a mild to moderate encephalopathy. Neurosurgery was consulted for patient's complaint of leg weakness who feel patient does not have any myelopathic symptomatology and symptoms are more suggestive of a diabetic neuropathy. Patient has been seen by neuromuscular neurology at the [facility] on 11/06/2023 with noted essential tremor. Prior myasthenia gravis workup has been negative. EMG reportedly showing diabetic peripheral neuropathy. He does have a DBS so is unable to have MRI studies. At that time it was noted that his exam is consistent with a longstanding history of diabetic polyneuropathy. His strength varied from a 4-5/5 during that visit with note of exam being effort dependent. Upon questioning of the duration of his weakness, he reports his lower extremity weakness has been ongoing for the last 1.5 years with a noticeable change in the last 2 months. No current facility-administered medications on file prior to encounter. Current Outpatient Medications on File Prior to Encounter Medication Sig Dispense Refill lidocaine (LIDODERM) 5 % Place 1 patch onto the skin every 24 hours candesartan (ATACAND) 8 MG tablet Take 1 tablet by mouth daily cetirizine (ZYRTEC) 10 MG tablet Take 1 tablet by mouth daily Insulin Degludec (TRESIBA FLEXTOUCH) 200 UNIT/ML SOPN Inject 60 Units into the skin in the morning and at bedtime montelukast (SINGULAIR) 10 MG tablet TAKE 1 TABLET BY MOUTH EVERY DAY NIFEdipine (PROCARDIA XL) 90 MG extended release tablet TAKE 1 TABLET BY MOUTH EVERY DAY oxybutynin (DITROPAN-XL) 10 MG extended release tablet TAKE 1 TABLET BY MOUTH EVERY DAY potassium chloride (KLOR-CON M) 20 MEQ TBCR extended release tablet Take 1 tablet by mouth daily pantoprazole (PROTONIX) 40 MG tablet TAKE 1 TABLET BY MOUTH EVERY DAY warfarin (COUMADIN) 5 MG tablet Take 1 tablet by mouth atorvastatin (LIPITOR) 40 MG tablet Take 1 tablet by mouth daily 90 tablet 3 topiramate (TOPAMAX) 50 MG tablet Take 2 tablets by mouth 2 times daily take 2 tablets by mouth twice a day 120 tablet 3 BD PEN NEEDLE ANTHONY U/F 32G X [address] [facility] COMPACT PLUS strip 0 Allergies: Andry Magallanes Lesly is allergic to beta adrenergic blockers, hydralazine, neuromuscular blocking agents [neuromuscular blocking agents], neurontin [gabapentin], valium, and other. Past Medical History: Diagnosis Date Arthritis Asthma CHF (congestive heart failure) ([facility]) CKD (chronic kidney disease) stage 2, GFR 60-89 ml/min 02/16/2014 Clotting disorder ([facility]) Congenital heart disease COPD (chronic obstructive pulmonary disease) ([facility]) Depression Emphysema of lung ([facility]) GERD (gastroesophageal reflux disease) GERD (gastroesophageal reflux disease) Gout Headache(784.0) Hernia Hernia History of blood clots History of DVT (deep vein thrombosis) Hyperlipidemia Insomnia Irritable bowel syndrome Kidney stones Lumbar degenerative disc disease 01/25/2014 Lumbar radiculopathy 01/25/2014 Obesity PAM (obstructive sleep apnea) 11/16/2013 Parkinson disease Parkinson's disease Post traumatic stress disorder Renal disease Rheumatoid arthritis ([facility]) Stroke ([facility]) 2018 Stroke risk Tracheostomy in place ([facility]) 08/22/2011 Tremors of nervous system Type II or unspecified type diabetes mellitus without mention of complication, not stated as uncontrolled Uncontrolled hypertension 06/09/2014 Unspecified cerebral artery occlusion with cerebral infarction x2 Past Surgical History: Procedure Laterality Date ANKLE SURGERY Left APPENDECTOMY BRAIN SURGERY brain stimulator CARDIAC CATHETERIZATION CARPAL TUNNEL RELEASE Right CHOLECYSTECTOMY COLONOSCOPY 06/03/2003 normal COLONOSCOPY DEEP BRAIN STIMULATOR PLACEMENT DIALYSIS FISTULA CREATION 03/06/2014 pt denies, had quiton placed for 2 emergency dialysis treatments HERNIA REPAIR Right Inguinal KNEE ARTHROSCOPY Right NECK SURGERY removed tumor out of neck SINUS SURGERY 10/06/2012 TRACHEOSTOMY 07/06/2013 removed UPPER GASTROINTESTINAL ENDOSCOPY 05/03/2011 ? polyp at GE junction UPPER GASTROINTESTINAL ENDOSCOPY chronic inflammation UVULOPALATOPHARYGOPLASTY Social History: Andry Magallanes Lesly reports that he has never smoked. He has never been exposed to tobacco smoke. He has quit using smokeless tobacco. His smokeless tobacco use included chew. He reports that he does not drink alcohol and does not use drugs. Family History Problem Relation Age of Onset Heart Disease Mother Stroke Mother Arthritis Mother High Blood Pressure Mother Heart Disease Father Stroke Father Heart Attack Father High Blood Pressure Father Cancer Paternal Grandfather Substance Abuse Sister High Blood Pressure Sister Substance Abuse Brother High Blood Pressure Maternal Grandmother Heart Disease Maternal Grandmother High Blood Pressure Paternal Grandmother Heart Disease Paternal Grandmother Objective: BP (!) 142/91 Pulse 79 Temp 97.8 F (36.6 C) (Oral) Resp 19 Ht 1.803 m (5' 11 ) Wt 133.2 kg (293 lb 10.4 oz) SpO2 98% BMI 40.96 kg/m Blood pressure range: Systolic (24hrs), Av , Min:119 , Max:165 ; Diastolic (24hrs), Av, Min:82, Max:95 Review of Systems: Constitutional Negative for fever and chills HEENT Negative for ear discharge, ear pain, nosebleed Eyes Negative for photophobia, pain and discharge Respiratory Negative for hemoptysis and sputum Cardiovascular Negative for orthopnea, claudication and PND Gastrointestinal Negative for abdominal pain, diarrhea, blood in stool Musculoskeletal Negative for joint pain, negative for myalgia. + generalized weakness Skin Negative for rash or itching Endo/heme/allergies Negative for polydipsia, environmental allergy Psychiatric/behavioral Negative for suicidal ideation. Patient is not anxious NEUROLOGIC EXAMINATION GENERAL Appears comfortable and in no distress HEENT NC/ AT NECK Supple MENTAL STATUS: Alert, oriented, intact memory, no confusion, normal speech, normal language, no hallucination or delusion CRANIAL NERVES: II - Visual weiss intact to confrontation III,IV, - EOMs full, no afferent defect, no JOHN, no ptosis V - Normal facial sensation VII - Normal facial symmetry VIII - Intact hearing IX,X - Symmetrical palate XI - Symmetrical shoulder shrug XII - Midline tongue, no atrophy MOTOR FUNCTION: BUEs 4+/5 strength, BLEs 2/5 as he is unable to lift against gravity with normal bulk, normal tone and no involuntary movements, there is action tremor noted to BUE (L>R) SENSORY FUNCTION: Decreased sensation to BLE CEREBELLAR FUNCTION: Action tremor bilaterally with FTN testing, L>R REFLEX FUNCTION: Absent to BLE, no perverted reflex, no Babinski sign STATION and GAIT Not tested as he states he is not ambulatory at this time Maximum score 5 Score 3 What is the year, season, date, day, month Maximum score 5 Score 4 Where are we: State, county, town, hospital, floor? Maximum score 3 Score 3 Name 3 objects: ball, pen, car. Ask patient to repeat 3 objects. Maximum score 5 Score 1 Serial sevens from 100:93, 86, 79, 72, 65 Maximum score 3 Score 0 Recall 3 objects Maximum score 2 Score 2 Name a pencil and watch. Maximum score 1 Score 1 Repeat the following: No ifs ands or buts. Maximum score 3 Score 3 Follow 3 stage command take a paper in your hand, fold it in half, and put it on the floor. Maximum score 1 Score 1 Read and obey the following: Close your eyes Maximum score 1 Score 1 Write a sentence. Maximum score 1 Score 1 Copy a design below. Max 30 Patient s score 20 Data: Lab Results: CBC: Recent Labs 12/01/23 0606 12/02/23 0523 WBC 10.9 11.1 HGB 14.6 14.4 PLT 223 230 BMP: Recent Labs 12/01/23 0606 12/02/23 0523 NA 140 140 K 3.8 3.7 CL 108* 109* CO2 22 22 BUN 39* 36* CREATININE 1.6* 1.5* GLUCOSE 144* 165* Lab Results Component Value Date CHOL 203 (H) 07/18/2015 LDLCHOLESTEROL 124 07/18/2015 HDL 32 (L) 07/18/2015 TRIG 233 (H) 07/18/2015 ALT 14 11/29/2023 AST 18 11/29/2023 TSH 0.36 11/30/2023 INR 3.3 12/03/2023 LABA1C 8.8 (H) 11/25/2023 [id number] 397 11/30/2023 MG 2.7 (H) 11/30/2023 PHOS 3.5 11/30/2023 Diagnostic data reviewed: CT HEAD (11/28/23) - No acute chest process. No acute intracranial abnormality. Stable metallic probe inserted via the left frontal approach with the tip in the left thalamic area. No obvious complications. EEG (12/02/23) - This EEG was abnormal. Disorganized and slow background suggested mild to moderate encephalopathy . Impression: -Mild cognitive impairment -History of prior stroke with prothrombin gene mutation as well as history of DVT; on Coumadin -Essential tremor status post left DBS (2002) -Bilateral lower extremity weakness in the setting of severe diabetic neuropathy Plan: -Patient with a 20/30 on MMSE today; will start on Exelon patch -Neurosurgery evaluated the patient with no evidence of cervical myelopathy and no surgical intervention at this time -Continue therapies -We will sign off. Please call with any questions. He will need outpatient follow up with neurology that he reports is already scheduled through his PCP in [place]. Please note that this note was generated using a voice recognition dictation software. Although every effort was made to ensure the accuracy of this automated barrel rifler broach, some errors in barrel rifler broach may have occurred. Associated attestation - Krystian Colvin MD - 12/03/2023 9:03 PM EST Attending Physician Statement I have discussed the case of Andry Pierre including pertinent history and exam findings with the resident/ DIRECTOR OF STUDENT FINANCIAL AID. I reviewed medications, clinical labs, x-rays and other diagnostic tests with the resident/ DIRECTOR OF STUDENT FINANCIAL AID. I have seen and examined the patient and the torre elements of the encounter have been performed by me. I agree with the assessment, plan and orders as documented by the resident. Mr Andry Pierre is a 63-year-old male with severe essential tremor, s/p left DBS (2002), prior cva with residual left-sided weakness (2003) and diabetic polyneuropathy was admitted on 11/29/2023 with c/o my legs are weak . Neurology is consulted for evaluation of encephalopathy. Presently patient is alert awake oriented x 3. Following commands well. Upon further questioning; patient's at bedside stated that patient has had episodes of confusion with occasional staring spells. But no report of tongue bite or bladder incontinence. Caregivers did not witness him having any seizure activity. 12/02/2023: Chart reviewed and discussed with caregivers. Patient has not had any episodes of staring spells. Patient was evaluated by neurosurgery and they agreed that the patient does not have myelopathic symptomatology and only symptoms suggestive of diabetic neuropathy. 12/03/2023: Chart reviewed and discussed with caregivers. Patient's at bedside. Patient is sitting in chair. Patient's stated that patient has been having memory difficulties for several months with increasing severity. She has noticed him significant difficulties for the past 6 months. Patient also stated that he was on gabapentin and pregabalin in the past and he could not tolerate those. He has been having [id number] in lower legs and feet and also has cramps at times. He has been on Flexeril. He was never tried on any other medications to help for painful neuropathy. He is requesting to be started on pain meds to help for painful neuropathy. Regarding bilateral lower extremity weakness; patient has been having fluctuating weakness. He was noted to be moving lower extremities against gravity yesterday and today he states he cannot move them at all . But caregivers noted him to be able to stand while transferring from bed to chair. Impression and Plan: Mr. Andry Pierre is a 63 y.o. male with Several month history of progressive memory difficulties; MMSE done today scoring 20/30; EEG revealing mild-moderate diffuse encephalopathy but no epileptiform discharges; will start him on Exelon 4.6mg/24 hr patch. Severe exertional/action tremor, Lt > rt; s/p DBS (2002) Hx of CVA with prothrombin gene mutation; hx of DVT; on Coumadin. Bilateral lower extremity weakness with severe diabetic neuropathy; neurosurgery evaluated for myelopathy; felt no evidence and also felt no need for myelogram. Diabetic peripheral polyneuropathy, severe; intolerance with gabapentin/pregabalin., Will start duloxetine. Comorbid uncontrolled diabetes: On insulin. Will follow with you. This note was partially created using voice recognition software and is inherently subject to errors including those of syntax and sound alike substitutions which may escape proofreading. In such instances, original meaning may be extrapolated by contextual derivation. Krystian Colvin MD 12/03/2023 4:58 PM NON INVASIVE VENTILATION PROVIDE OPTIMAL VENTILATION/ACCEPTABLE SP02 IMPLEMENT NON INVASIVE VENTILATION PROTOCOL ASSESSMENT SKIN INTEGRITY PATIENT EDUCATION NEEDED BIPAP NEEDED Images from the original note were not included. [facility] Office: [phone] Alberto Rice DO, Luciano Murphy DO, Humza James DO, Jc Maria DO, Nancy Paz MD, Naz Cruz MD, Demetrio Patel MD, Hortensia Maynard MD, Filiberto Vizcaino MD, Polly Ramos MD, Julia Blanco MD, Bibi Kim DO, Yaneli Lugo MD, Chepe Pfeiffer MD, Andry Rice DO, Jamia Nur MD, Obi Alford DO, Jacquelyn Roper MD, Almita Moya MD, Jackie Rivas MD, Kylie Morales MD, Pasha Roy MD, Daniel Swenson MD, Marvin Sneed MD, Abdirahman Hunt MD, Da Moore MD, Geneva Casiano MD, Matthew Perez DO, Tk Connor DO, Jess Parker MD, Garett Valentine MD, Rosalia Mobley, DIRECTOR OF STUDENT FINANCIAL AID, Criss Gray, DIRECTOR OF STUDENT FINANCIAL AID, Lefty Matute, DIRECTOR OF STUDENT FINANCIAL AID, Brittny Quinones, DNP, Kacey Meeks, DIRECTOR OF STUDENT FINANCIAL AID, Sugey Barillas, DIRECTOR OF STUDENT FINANCIAL AID, Mary Jo Bonner DIRECTOR OF STUDENT FINANCIAL AID, Kathy Granados, DIRECTOR OF STUDENT FINANCIAL AID, Sigrid Velásquez, DIRECTOR OF STUDENT FINANCIAL AID, Janine Turpin, PA-C, Sue Willams, PA-C, Savi Iqbal, DIRECTOR OF STUDENT FINANCIAL AID, Beckie Mello, DIRECTOR OF STUDENT FINANCIAL AID, Nora Mace, DIRECTOR OF STUDENT FINANCIAL AID, Jyoti Rojo, VENDING TECHNICIAN, Ronda Sellers, DIRECTOR OF STUDENT FINANCIAL AID, Janell Hoyt, DIRECTOR OF STUDENT FINANCIAL AID, Caryl Gonzalez, DIRECTOR OF STUDENT FINANCIAL AID [facility] IN-PATIENT SERVICE [facility] Progress Note 12/02/2023 3:11 PM Name: Andry Pierre Acct: [id number] Room: 0143/0143-01 Day: 3 Admit Date: 11/29/2023 8:06 PM PCP: Say Mccormick MD Code Status: Full Code Subjective: C/C: chest pain and dizziness Interval History Status: not changed. Patient tried to work with therapy but could not stand up. He said he felt too weak. Also felt dizzy. He says he has chronic chest pain for the last few months. Blood sugar is getting elevated now. Blood pressure is slightly on the higher side but he is allergic to multiple medications. Bp stable today. Will reduce clonidine back to home dose Pending Placement to [place] Brief History: Per documentation Andry Pierre is a 63 y.o. 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 and is admitted to the hospital for the management of AMS (altered mental status). Patient transferred from [place] after undergoing tilt table evaluation for concern for orthostasis on 11/28/2022 with history of recurrent episodes of dizziness with history of stroke, complicated history. tilt table test complicated by worsening acute symptoms of dizziness with chest pain with altered sensorium. Although tilt test unremarkable for orthostasis, patient was evaluated in ED with acute symptoms and recommended admission pending transfer to [facility] for neurology evaluation. Unfortunately with bed availability transfer was delayed until today. Patient with multiple somatic complaints. Describes worsening sciatica with increasing leg weakness with worsening pain status post recent fall November 24 with worsening radicular symptoms and neck and lumbar spine. He does describe frequent episodes of chest pain 5-6 times daily lasting minutes midsternum with crushing type symptoms radiating to his neck. Describes occasional nausea . Unintentional weight loss of 20 pounds in the past month with poor p.o. intake. Constant neck pain with recurrent headaches. Intermittent choking episodes with dysphagia. Recurrent episodes of palpitations daily lasting minutes sometimes associated with the chest pain, sometimes not with occasional shortness of breath While in [place] ED patient did develop symptomatic hypoglycemia with blood sugars in the 50s with symptoms of feeling funny . 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 Subsequently returned status post fall 11/24 with worsening back pain, weakness with atypical chest pain, shortness of breath. Medications: Allergies: Allergies Allergen Reactions Beta Adrenergic Blockers Other reaction(s): Headache Hydralazine Headache, nausea, sick Neuromuscular Blocking Agents [Neuromuscular Blocking Agents] After neurotin was prescribed had a stroke Neurontin [Gabapentin] Valium Was on the ground after took it Other Nausea And Vomiting Headache and nausea with some beta blockers Current Meds: Scheduled Meds: warfarin 15 mg Oral Once cloNIDine 0.1 mg Oral BID insulin glargine 2 Units SubCUTAneous Daily atorvastatin 40 mg Oral Daily [Held by provider] metFORMIN 500 mg Oral BID WC montelukast 10 mg Oral Daily NIFEdipine 90 mg Oral Daily pantoprazole 40 mg Oral Daily topiramate 100 mg Oral BID warfarin placeholder: dosing by pharmacy Other RX Placeholder insulin lispro 0-4 Units SubCUTAneous TID WC insulin lispro 0-4 Units SubCUTAneous Nightly valsartan 160 mg Oral Daily sodium chloride flush 5-40 mL IntraVENous 2 times per day Vitamin D 5,000 Units Oral Daily Continuous Infusions: dextrose sodium chloride PRN Meds: labetalol, glucose, dextrose bolus OR dextrose bolus, glucagon (rDNA), dextrose, morphine, sodium chloride flush, sodium chloride, potassium chloride OR potassium alternative oral replacement OR potassium chloride, magnesium sulfate, ondansetron OR ondansetron, polyethylene glycol, acetaminophen OR acetaminophen Data: Past Medical History: has a past medical history of Arthritis, Asthma, CHF (congestive heart failure) ([facility]), CKD (chronic kidney disease) stage 2, GFR 60-89 ml/min, Clotting disorder ([facility]), Congenital heart disease, COPD (chronic obstructive pulmonary disease) ([facility]), Depression, Emphysema of lung ([facility]), GERD (gastroesophageal reflux disease), GERD (gastroesophageal reflux disease), Gout, Headache(784.0), Hernia, Hernia, History of blood clots, History of DVT (deep vein thrombosis), Hyperlipidemia, Insomnia, Irritable bowel syndrome, Kidney stones, Lumbar degenerative disc disease, Lumbar radiculopathy, Obesity, PAM (obstructive sleep apnea), Parkinson disease, Parkinson's disease, Post traumatic stress disorder, Renal disease, Rheumatoid arthritis (HCC), Stroke (HCC), Stroke risk, Tracheostomy in place (HCC), Tremors of nervous system, Type II or unspecified type diabetes mellitus without mention of complication, not stated as uncontrolled, Uncontrolled hypertension, and Unspecified cerebral artery occlusion with cerebral infarction. Social History: reports that he has never smoked. He has never been exposed to tobacco smoke. He has quit using smokeless tobacco. His smokeless tobacco use included chew. He reports that he does not drink alcohol and does not use drugs. Family History: Family History Problem Relation Age of Onset Heart Disease Mother Stroke Mother Arthritis Mother High Blood Pressure Mother Heart Disease Father Stroke Father Heart Attack Father High Blood Pressure Father Cancer Paternal Grandfather Substance Abuse Sister High Blood Pressure Sister Substance Abuse Brother High Blood Pressure Maternal Grandmother Heart Disease Maternal Grandmother High Blood Pressure Paternal Grandmother Heart Disease Paternal Grandmother Vitals: BP 121/82 Pulse 68 Temp 97.9 F (36.6 C) (Oral) Resp 16 Ht 1.803 m (5' 11 ) Wt 133.2 kg (293 lb 10.4 oz) SpO2 93% BMI 40.96 kg/m Temp (24hrs), Av F (36.7 C), Min:97.6 F (36.4 C), Max:98.2 F (36.8 C) Recent Labs 12/01/23 1740 12/01/23 2004 12/02/23 0754 12/02/23 1204 POCGLU 108 168* 117* 172* I/O (24Hr): Intake/Output Summary (Last 24 hours) at 12/02/2023 1511 Last data filed at 12/02/2023 0400 Gross per 24 hour Intake 240 ml Output 650 ml Net -410 ml Labs: Hematology: Recent Labs 11/30/23 0648 12/01/23 0606 12/02/23 0523 WBC 10.1 10.9 11.1 RBC 4.94 4.68 4.61 HGB 15.4 14.6 14.4 HCT 49.3 46.3 46.4 MCV 99.8 98.9 100.7 MCH 31.2 31.2 31.2 MCHC 31.2 31.5 31.0 RDW 14.2 14.4 14.2 PLT 214 223 230 MPV 10.0 10.4 10.3 SEDRATE 18 -- -- CRP 4.8 -- -- INR 3.0 2.8 2.8 Chemistry: Recent Labs 11/30/23 0648 12/01/23 0606 12/01/23 1554 12/02/23 0523 NA 146* 140 -- 140 K 3.7 3.8 -- 3.7 CL 114* 108* -- 109* CO2 21 22 -- 22 GLUCOSE 49* 144* -- 165* BUN 37* 39* -- 36* CREATININE 1.5* 1.6* -- 1.5* MG 2.7* -- -- -- ANIONGAP 11 10 -- 9 LABGLOM 52* 48* -- 52* CALCIUM 8.9 8.9 -- 8.8 CAION 1.21 -- -- -- PHOS 3.5 -- -- -- PSA -- 1.50 -- -- TROPHS -- -- 23* -- CKTOTAL 69 -- -- -- MYOGLOBIN 59 -- -- -- Recent Labs 11/29/23 2018 11/29/23 2034 11/30/23 0648 11/30/23 0807 11/30/23 0830 11/30/23 0930 12/01/23 0812 12/01/23 1232 12/01/23 1740 12/01/23200312/02/23 0754 12/02/23 1204 PROT 6.5 -- -- -- -- -- -- -- -- -- -- -- LABALBU 3.4* -- -- -- -- -- -- -- -- -- -- -- TSH -- -- -- -- 0.36 -- -- -- -- -- -- -- AST 18 -- -- -- -- -- -- -- -- -- -- -- ALT 14 -- -- -- -- -- -- -- -- -- -- -- LDH -- -- 243* -- -- -- -- -- -- -- -- -- ALKPHOS 93 -- -- -- -- -- -- -- -- -- -- -- BILITOT 0.3 -- -- -- -- -- -- -- -- -- -- -- POCGLU -- < > -- < > -- < > 150* 226* 108 168* 117* 172* < > = values in this interval not displayed. ABG: Lab Results Component Value Date/Time PH 7.413 08/22/2011 03:20 PM PCO2 41.5 08/22/2011 03:20 PM PO2ART 92.5 08/22/2011 03:20 PM [id number] 26.0 08/22/2011 03:20 PM NBEA NOT REPORTED 08/22/2011 03:20 PM PBEA 1.8 08/22/2011 03:20 PM [id number] 95.6 08/22/2011 03:20 PM FIO2 INFORMATION NOT PROVIDED 11/30/2023 12:05 AM Lab Results Component Value Date/Time SPECIAL NOT REPORTED 10/20/2012 10:15 AM SPECIAL NOT REPORTED 10/20/2012 10:15 AM Lab Results Component Value Date/Time CULTURE NO GROWTH 10/20/2012 10:15 AM CULTURE 10/20/2012 10:15 AM Performed at [facility] [address] [place] [address] [id number] Radiology: XR CHEST (2 VW) Result Date: 11/29/2023 No acute chest process. No acute intracranial abnormality. Stable metallic probe inserted via the left frontal approach with the tip in the left thalamic area. No obvious complications. CT Head WO Contrast Result Date: 11/29/2023 No acute chest process. No acute intracranial abnormality. Stable metallic probe inserted via the left frontal approach with the tip in the left thalamic area. No obvious complications. Physical Examination: General appearance: alert, cooperative and no distress Mental Status: oriented to person, place and time and normal affect Lungs: clear to auscultation bilaterally, normal effort Heart: regular rate and rhythm, no murmur Abdomen: soft, nontender, nondistended Assessment: Hospital Problems Last Modified POA * (Principal) AMS (altered mental status) 11/28/2023 Yes Lumbar degenerative disc disease (Chronic) 11/30/2023 Yes Diabetic neuropathy (HCC) (Chronic) 11/30/2023 Yes Sleep apnea, obstructive (Chronic) 11/30/2023 Yes Overview Signed 01/25/2014 12:25 PM by Servando Diego MD S/p Tracheotomy Syncope and collapse 12/01/2023 Yes Chronic kidney disease (CKD), stage III (moderate) ([facility]) 11/30/2023 Yes CHF (congestive heart failure) (HCC) 11/30/2023 Yes Uncontrolled hypertension 11/30/2023 Yes Dysphagia 11/30/2023 Yes GERD (gastroesophageal reflux disease) 11/30/2023 Yes S/P deep brain stimulator placement 11/30/2023 Yes Spondylarthrosis 11/30/2023 Yes DM type 2 with diabetic peripheral neuropathy (HCC) 11/30/2023 Yes Altered mental status 11/29/2023 Yes Multiple falls 11/30/2023 Yes Essential tremor 11/30/2023 Yes Staring episodes 12/01/2023 Yes Altered awareness, transient 12/01/2023 Yes Principal Problem: AMS (altered mental status) Active Problems: Lumbar degenerative disc disease Diabetic neuropathy ([facility]) Sleep apnea, obstructive Syncope and collapse Chronic kidney disease (CKD), stage III (moderate) ([facility]) CHF (congestive heart failure) ([facility]) Uncontrolled hypertension Dysphagia GERD (gastroesophageal reflux disease) S/P deep brain stimulator placement 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 * Plan: Acute encephalopathy on admission-resolved Uncontrolled hypertension-valsartan dose was increased yesterday, continue with that. Continue Procardia. Clonidine at home dose Acute on chronic weakness of lower extremities with debility-nonspecific symptoms. Follow neurology and neurosurgery plan. CT cervical spine to be done today Chest pain-has been chronic. No pleuritic component. Follow cardiology plan we were consulted yesterday. No hypoxia no shortness of breath Diabetes mellitus-A1c was 8.8 but had hypoglycemia yesterday. Currently sugars are increasing, will restart Lantus but at only 2 units and then adjust accordingly Recurrent [id number] neurology plan History of prothrombin gene mutation with prior DVT-continue Coumadin CKD stage III-continue to monitor creatinine and will need follow-up with nephrology/PCP PAM on CPAP Discharge planning after the above workup Lori Leblanc MD 12/02/2023 3:11 PM MEDICAL VIDEOGRAPHER ALL NOTES Speech Language Pathology [facility] Cognitive Treatment Note Date: 12/02/2023 Patient s Name: Andry Pierre Diagnosis: Patient Active Problem List Diagnosis Code COPD (chronic obstructive pulmonary disease) ([facility]) J44.9 PAM (obstructive sleep apnea) G47.33 Obesity, morbid ([facility]) E66.01 Lumbar degenerative disc disease M51.36 Lumbar radiculopathy M54.16 Lumbar facet arthropathy M47.816 Osteoarthritis of both knees M17.0 Diabetic neuropathy ([facility]) E11.40 Morbid obesity ([facility]) E66.01 Sleep apnea, obstructive G47.33 Encounter for medication monitoring Z51.81 Chronic kidney disease (CKD), stage III (moderate) ([facility]) N18.30 Hyperkalemia E87.5 Fatigue R53.83 Pill rolling tremor R25.1 Muscle cramps R25.2 Acute renal failure (ARF) ([facility]) N17.9 Type II or unspecified type diabetes mellitus without mention of complication, not stated as uncontrolled E11.9 Depression F32.A Irritable bowel syndrome K58.9 Obesity E66.9 CHF (congestive heart failure) ([facility]) I50.9 Parkinson disease G20.A1 Tremors of nervous system R25.[address] ([facility]) Z93.0 Bilateral lower extremity edema R60.0 CKD (chronic kidney disease) N18.9 Uncontrolled hypertension I10 Dysphagia R13.10 Hyperlipidemia E78.5 History of DVT (deep vein thrombosis) Z86.718 Congenital heart disease Q24.9 Emphysema of lung ([facility]) J43.9 Hernia K46.9 Stroke risk Z91.89 GERD (gastroesophageal reflux disease) K21.9 Asthma J45.909 Renal disease N28.9 Gout M10.9 S/P deep brain stimulator placement Z96.89 Parkinsons G20.A1 CKD (chronic kidney disease) stage 2, GFR 60-89 ml/min N18.2 Type II or unspecified type diabetes mellitus with renal manifestations, not stated as uncontrolled(250.40) E11.29 Encounter for chronic pain management G89.29 Weight loss, intentional [id number] 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 Primary osteoarthritis of both knees M17.0 DM type 2 with diabetic peripheral neuropathy (HCC) E11.42 Need for immunization against influenza Z23 Morbid obesity due to excess calories (HCC) E66.01 Diabetic mononeuropathy associated with diabetes mellitus due to underlying condition (HCC) E08.41 AMS (altered mental status) R41.82 Altered mental status R41.82 Multiple falls R29.6 Essential tremor G25.0 Syncope and collapse R55 Staring episodes R40.4 Altered awareness, transient R40.4 Pain: 0/10 Cognitive Treatment Treatment time: 1409 - 143 Subjective: [x] Alert [x] Cooperative [] Confused [] Agitated [] Lethargic Objective/Assessment: Recall: Immediate recall (4 words unrelated): 4/4 independently Delayed recall (4 words unrelated): 2/4 despite given max verbal cues, 3/4 increased to 4/4 given a max verbal cue. Memory compensatory strategies used. Functional memory tasks (3-4 elements inclusion): 5/8 increased to 8/8 given mod to max verbal and visual cues Picture retention (pet store): 04/14 independently. Given 30 sec to study picture Picture retention (fishing): 06/15 independently. Given 30 sec to study picture Problem Solving/Reasoning: Word deductions: 03/11 independently Other: Pt. Stated feelings of mental exhaustion after completing activities. Pt. With awareness of deficits. Plan: [x] Continue ST services [] Discharge from ST: Discharge recommendations: [] Further therapy recommended at discharge.The patient should be able to tolerate at least 3 hours of therapy per day over 5 days or 15 hours over 7 days. [x] Further therapy recommended at discharge. [] No therapy recommended at discharge. Completed by Tess Robert Director Learning Clinician Co-signed by Sonja Madera M.S., CCC/MEDICAL VIDEOGRAPHER Pharmacy Note Warfarin Consult follow-up Warfarin dose prior to admission: 17.5 mg Sun, 15 mg all other days (per medication management clinic in [place], last visit 11/11; clinic noted recent dose decrease) Warfarin indication: h/o DVT Target INR range: 2-3 Recent Labs 12/02/23 0523 INR 2.8 Recent Labs 11/30/23 0648 12/01/23 0606 12/02/23 0523 HGB 15.4 14.6 14.4 HCT 49.3 46.3 46.4 PLT 214 223 230 Current warfarin drug-drug interactions: / Date INR Dose 11/30 3 10 mg 12/01 2.8 15 mg 12/02 2.8 Notes: - INR therapeutic, will order Warfarin 15 mg x1 today based on home regimen Daily PT/INR while inpatient. Nolan Mccarty PharmD, 12/02/2023 12:34 PM Routine EEG completed NEUROLOGY INPATIENT PROGRESS NOTE 12/02/2023 Subjective: Andry Pierre is a 63 y.o. male admitted on 11/29/2023 with AMS (altered mental status) [R41.82] Altered mental status [R41.82] Mr Andry Pierer is a 63-year-old male with severe essential tremor, s/p left DBS (2002), prior cva with residual left-sided weakness (2003) and diabetic polyneuropathy was admitted on 11/29/2023 with c/o my legs are weak . Neurology is consulted for evaluation of encephalopathy. Presently patient is alert awake oriented x 3. Following commands well. Upon further questioning; patient's at bedside stated that patient has had episodes of confusion with occasional staring spells. But no report of tongue bite or bladder incontinence. Caregivers did not witness him having any seizure activity. 12/02/2023: Chart reviewed and discussed with caregivers. Patient has not had any episodes of staring spells. Patient was evaluated by neurosurgery and they agreed that the patient does not have myelopathic symptomatology and only symptoms suggestive of diabetic neuropathy. No current facility-administered medications on file prior to encounter. Current Outpatient Medications on File Prior to Encounter Medication Sig Dispense Refill lidocaine (LIDODERM) 5 % Place 1 patch onto the skin every 24 hours indomethacin (INDOCIN) 50 MG capsule TAKE 1 CAPSULE BY MOUTH THREE TIMES A DAY NEEDED FOR PAIN WITH FOOD OR MILK for 30 (Patient not taking: Reported on 11/29/2023) JARDIANCE 10 MG tablet Take 1 tablet by mouth daily (Patient not taking: Reported on 11/29/2023) cloNIDine (CATAPRES) 0.1 MG tablet Take 0.5 tablets by mouth 2 times daily (Patient not taking: Reported on 11/29/2023) candesartan (ATACAND) 8 MG tablet Take 1 tablet by mouth daily cetirizine (ZYRTEC) 10 MG tablet Take 1 tablet by mouth daily metFORMIN (GLUCOPHAGE) 500 MG tablet Take 1 tablet by mouth 2 times daily (with meals) (Patient not taking: Reported on 11/29/2023) Insulin Degludec (TRESIBA FLEXTOUCH) 200 UNIT/ML SOPN Inject 60 Units into the skin in the morning and at bedtime Cholecalciferol (VITAMIN D3) 50 MCG (2000 UT) CAPS Take 1 capsule by mouth daily (Patient not taking: Reported on 11/29/2023) albuterol sulfate (PROAIR RESPICLICK) 108 (90 Base) MCG/ACT aerosol powder inhalation Inhale 1 puff into the lungs every 4 hours as needed (Patient not taking: Reported on 11/28/2023) furosemide (LASIX) 40 MG tablet TAKE 1 TABLET BY MOUTH TWICE A DAY (Patient not taking: Reported on 11/29/2023) montelukast (SINGULAIR) 10 MG tablet TAKE 1 TABLET BY MOUTH EVERY DAY NIFEdipine (PROCARDIA XL) 90 MG extended release tablet TAKE 1 TABLET BY MOUTH EVERY DAY oxybutynin (DITROPAN-XL) 10 MG extended release tablet TAKE 1 TABLET BY MOUTH EVERY DAY potassium chloride (KLOR-CON M) 20 MEQ TBCR extended release tablet Take 1 tablet by mouth daily pantoprazole (PROTONIX) 40 MG tablet TAKE 1 TABLET BY MOUTH EVERY DAY warfarin (COUMADIN) 5 MG tablet Take 1 tablet by mouth traMADol (ULTRAM) 50 MG tablet Take 1 tablet by mouth every 6 hours as needed for Pain (Patient not taking: Reported on 11/28/2023) 120 tablet 0 atorvastatin (LIPITOR) 40 MG tablet Take 1 tablet by mouth daily 90 tablet 3 topiramate (TOPAMAX) 50 MG tablet Take 2 tablets by mouth 2 times daily take 2 tablets by mouth twice a day 120 tablet 3 BD PEN NEEDLE ANTHONY U/F 32G X 4 MM MISC ACCU-CHEK COMPACT PLUS strip 0 Allergies: Andry Pierre is allergic to beta adrenergic blockers, hydralazine, neuromuscular blocking agents [neuromuscular blocking agents], neurontin [gabapentin], valium, and other. Past Medical History: Diagnosis Date Arthritis Asthma CHF (congestive heart failure) ([facility]) CKD (chronic kidney disease) stage 2, GFR 60-89 ml/min 02/16/2014 Clotting disorder ([facility]) Congenital heart disease COPD (chronic obstructive pulmonary disease) ([facility]) Depression Emphysema of lung ([facility]) GERD (gastroesophageal reflux disease) GERD (gastroesophageal reflux disease) Gout Headache(784.0) Hernia Hernia History of blood clots History of DVT (deep vein thrombosis) Hyperlipidemia Insomnia Irritable bowel syndrome Kidney stones Lumbar degenerative disc disease 01/25/2014 Lumbar radiculopathy 01/25/2014 Obesity PAM (obstructive sleep apnea) 11/16/2013 Parkinson disease Parkinson's disease Post traumatic stress disorder Renal disease Rheumatoid arthritis ([facility]) Stroke ([facility]) 2018 Stroke risk Tracheostomy in place ([facility]) 08/22/2011 Tremors of nervous system Type II or unspecified type diabetes mellitus without mention of complication, not stated as uncontrolled Uncontrolled hypertension 06/09/2014 Unspecified cerebral artery occlusion with cerebral infarction x2 Past Surgical History: Procedure Laterality Date ANKLE SURGERY Left APPENDECTOMY BRAIN SURGERY brain stimulator CARDIAC CATHETERIZATION CARPAL TUNNEL RELEASE Right CHOLECYSTECTOMY COLONOSCOPY 06/03/2003 normal COLONOSCOPY DEEP BRAIN STIMULATOR PLACEMENT DIALYSIS FISTULA CREATION 03/06/2014 pt denies, had quiton placed for 2 emergency dialysis treatments HERNIA REPAIR Right Inguinal KNEE ARTHROSCOPY Right NECK SURGERY removed tumor out of neck SINUS SURGERY 10/06/2012 TRACHEOSTOMY 07/06/2013 removed UPPER GASTROINTESTINAL ENDOSCOPY 05/03/2011 ? polyp at GE junction UPPER GASTROINTESTINAL ENDOSCOPY chronic inflammation UVULOPALATOPHARYGOPLASTY Medications: insulin glargine 2 Units SubCUTAneous Daily cloNIDine 0.2 mg Oral BID atorvastatin 40 mg Oral Daily [Held by provider] metFORMIN 500 mg Oral BID montelukast 10 mg Oral Daily NIFEdipine 90 mg Oral Daily pantoprazole 40 mg Oral Daily topiramate 100 mg Oral BID warfarin placeholder: dosing by pharmacy Other RX Placeholder insulin lispro 0-4 Units SubCUTAneous TID WC insulin lispro 0-4 Units SubCUTAneous Nightly valsartan 160 mg Oral Daily sodium chloride flush 5-40 mL IntraVENous 2 times per day Vitamin D 5,000 Units Oral Daily PRN Meds include: labetalol, glucose, dextrose bolus OR dextrose bolus, glucagon (rDNA), dextrose, morphine, sodium chloride flush, sodium chloride, potassium chloride OR potassium alternative oral replacement OR potassium chloride, magnesium sulfate, ondansetron OR ondansetron, polyethylene glycol, acetaminophen OR acetaminophen Objective: BP 99/72 Pulse 66 Temp 98.2 F (36.8 C) (Oral) Resp 19 Ht 1.803 m (5' 11 ) Wt 133.2 kg (293 lb 10.4 oz) SpO2 99% BMI 40.96 kg/m Blood pressure range: Systolic (24hrs), Av , Min:99 , Max:163 ; Diastolic (24hrs), Av, Min:72, Max:92 Neurologic exam with intact mentation; unremarkable cranial nerve exam; motor exam significant for 3/5 in upper extremities, 2/5 in lower extremities with atrophy in hand intrinsics; hyporeflexic DTRs throughout; with mixed action and resting tremor in bilateral upper extremities, left greater than right with no cogwheeling. Data: Lab Results: CBC: Recent Labs 11/30/23 0648 12/01/23 0606 12/02/23 0523 WBC 10.1 10.9 11.1 HGB 15.4 14.6 14.4 PLT 214 223 230 BMP: Recent Labs 11/30/23 0648 12/01/23 0606 12/02/23 0523 NA 146* 140 140 K 3.7 3.8 3.7 CL 114* 108* 109* CO2 21 22 22 BUN 37* 39* 36* CREATININE 1.5* 1.6* 1.5* GLUCOSE 49* 144* 165* No results for input(s): COLORU , PHUR , LABCAST , WBCUA , RBCUA , MUCUS , TRICHOMONAS , YEAST , BACTERIA , CLARITYU , SPECGRAV , LEUKOCYTESUR , UROBILINOGEN , BILIRUBINUR , BLOODU in the last 72 hours. Invalid input(s): NITRATE , GLUCOSEUKETONESUAMORPHOUS Lab Results Component Value Date CHOL 203 (H) 07/18/2015 LDLCHOLESTEROL 124 07/18/2015 HDL 32 (L) 07/18/2015 TRIG 233 (H) 07/18/2015 ALT 14 11/29/2023 AST 18 11/29/2023 TSH 0.36 11/30/2023 INR 2.8 12/02/2023 LABA1C 8.8 (H) 11/25/2023 [id number] 11/30/2023 MG 2.7 (H) 11/30/2023 PHOS 3.5 11/30/2023 EEG 12/02/2023: Interpretation: This EEG was abnormal due to disorganized and slow background in polymorphic delta and theta frequency. Clinical correlation: This EEG was abnormal. Disorganized and slow background suggested mild to moderate encephalopathy . Impression and Plan: Mr. Andry Pierre is a 63 y.o. male with Episodic confusion; witnessed brief staring spells as per his at bedside; EEG done this afternoon and it demonstrated mild to moderate diffuse encephalopathy but no epileptiform discharges. History of CVA with prothrombin gene mutation; history of DVT; on Coumadin anticoag. Coexisting action tremor/essential tremors; s/p left DBS (2002) Bilateral lower extremity weakness with severe diabetic neuropathy; neurosurgery evaluated for possible coexisting myelopathy; but no evidence and they felt no need for myelogram. Comorbid diabetes and hypertension: On insulin and valsartan and Procardia and clonidine as per primary team. Will follow with you. This note was partially created using voice recognition software and is inherently subject to errors including those of syntax and sound alike substitutions which may escape proofreading. In such instances, original meaning may be extrapolated by contextual derivation. MEDICAL VIDEOGRAPHER ALL NOTES Speech Language Pathology [facility] Cognitive Treatment Note Date: 12/01/2023 Patient s Name: Andry Pierre Diagnosis: Patient Active Problem List Diagnosis Code COPD (chronic obstructive pulmonary disease) ([facility]) J44.9 PAM (obstructive sleep apnea) G47.33 Obesity, morbid ([facility]) E66.01 Lumbar degenerative disc disease M51.36 Lumbar radiculopathy M54.16 Lumbar facet arthropathy M47.816 Osteoarthritis of both knees M17.0 Diabetic neuropathy ([facility]) E11.40 Morbid obesity ([facility]) E66.01 Sleep apnea, obstructive G47.33 Encounter for medication monitoring Z51.81 Chronic kidney disease (CKD), stage III (moderate) ([facility]) N18.30 Hyperkalemia E87.5 Fatigue R53.83 Pill rolling tremor R25.1 Muscle cramps R25.2 Acute renal failure (ARF) ([facility]) N17.9 Type II or unspecified type diabetes mellitus without mention of complication, not stated as uncontrolled E11.9 Depression F32.A Irritable bowel syndrome K58.9 Obesity E66.9 CHF (congestive heart failure) ([facility]) I50.9 Parkinson disease G20.A1 Tremors of nervous system R25.[address] ([facility]) Z93.0 Bilateral lower extremity edema R60.0 CKD (chronic kidney disease) N18.9 Uncontrolled hypertension I10 Dysphagia R13.10 Hyperlipidemia E78.5 History of DVT (deep vein thrombosis) Z86.718 Congenital heart disease Q24.9 Emphysema of lung ([facility]) J43.9 Hernia K46.9 Stroke risk Z91.89 GERD (gastroesophageal reflux disease) K21.9 Asthma J45.909 Renal disease N28.9 Gout M10.9 S/P deep brain stimulator placement Z96.89 Parkinsons G20.A1 CKD (chronic kidney disease) stage 2, GFR 60-89 ml/min N18.2 Type II or unspecified type diabetes mellitus with renal manifestations, not stated as uncontrolled(250.40) E11.29 Encounter for chronic pain management G89.29 Weight loss, intentional [id number] 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 Primary osteoarthritis of both knees M17.0 DM type 2 with diabetic peripheral neuropathy ([facility]) E11.42 Need for immunization against influenza Z23 Morbid obesity due to excess calories ([facility]) E66.01 Diabetic mononeuropathy associated with diabetes mellitus due to underlying condition ([facility]) E08.41 AMS (altered mental status) R41.82 Altered mental status R41.82 Multiple falls R29.6 Essential tremor G25.0 Pain: Pt. With c/o of intermittent chest pain. Cognitive Treatment Treatment time: 1339 - 1355 Subjective: [x] Alert [x] Cooperative [] Confused [] Agitated [] Lethargic Objective/Assessment: Recall: Immediate recall (3 words related): 3/3 independently Delayed recall (3 words related): 3/3, 3/3 independently. Memory compensatory strategies used. Mental manipulation (word progression): 3/3 independently Organization: Category members (list 4 each concrete): +12 independently Category members (concrete given first letter): 6/6 independently Other: Note pt. With delayed response time throughout entire session. Pt. Described difficulties with memory to be associated to stress. Plan: [x] Continue ST services [] Discharge from ST: Discharge recommendations: [x] Further therapy recommended at discharge.The patient should be able to tolerate at least 3 hours of therapy per day over 5 days or 15 hours over 7 days. [] Further therapy recommended at discharge. [] No therapy recommended at discharge. Completed by Tess Robert Director Learning Clinician Co-signed by Sonja Madera M.S. CCC/MEDICAL VIDEOGRAPHER Pharmacy Note Warfarin Consult follow-up Warfarin dose prior to admission: 17.5 mg Sun, 15 mg all other days (per medication management clinic in [place], last visit 11/11; clinic noted recent dose decrease) Warfarin indication: h/o DVT Target INR range: 2-3 Recent Labs 12/01/23 0606 INR 2.8 Recent Labs 11/28/23 1425 11/30/23 0648 12/01/23 0606 HGB 15.9 15.4 14.6 HCT 48.5 49.3 46.3 PLT 233 214 223 Current warfarin drug-drug interactions: / Date INR Dose 11/30 3 10 mg 12/01 2.8 Notes: - INR therapeutic, will order Warfarin 15 mg x1 today based on home regimen Daily PT/INR while inpatient. Nolan Mccarty PharmD, 12/01/2023 1:02 PM Physical Therapy Facility/Department: [address] [place] Physical Therapy Initial Assessment Name: Andry Pierre : 1960 Date of Service: 12/01/2023 History per EMR: Andry Pierre is a 63 y.o. male with history of prior CVAs (with h/o expressive aphasia, dysphasia), h/o seizures, DM 2, HFpEF, CKD 3, chronic thrombophila w/ +prothrombin gene mutation s/p DVT/PE 01/2023, nonobst CAD (s/p cath 2019), asthma/COPD with PAM with history of Parkinsons vs MG s/p deep brain stimulator 10/2008 who initially presented to [facility] 11/24 s/p fall in bathroom with acute left hip/upper thigh and back pain (hit head, no LOC) and is admitted to the hospital for the management of AMS (altered mental status). Discharge Recommendations: Patient would benefit from continued therapy after discharge PT Equipment Recommendations Equipment Needed: No Other: Pt owns walker, cane and walker Patient Diagnosis(es): There were no encounter diagnoses. Past Medical History: has a past medical history of Arthritis, Asthma, CHF (congestive heart failure) ([facility]), CKD (chronic kidney disease) stage 2, GFR 60-89 ml/min, Clotting disorder ([facility]), Congenital heart disease, COPD (chronic obstructive pulmonary disease) ([facility]), Depression, Emphysema of lung ([facility]), GERD (gastroesophageal reflux disease), GERD (gastroesophageal reflux disease), Gout, Headache(784.0), Hernia, Hernia, History of blood clots, History of DVT (deep vein thrombosis), Hyperlipidemia, Insomnia, Irritable bowel syndrome, Kidney stones, Lumbar degenerative disc disease, Lumbar radiculopathy, Obesity, PAM (obstructive sleep apnea), Parkinson disease, Parkinson's disease, Post traumatic stress disorder, Renal disease, Rheumatoid arthritis ([facility]), Stroke ([facility]), Stroke risk, Tracheostomy in place ([facility]), Tremors of nervous system, Type II or unspecified type diabetes mellitus without mention of complication, not stated as uncontrolled, Uncontrolled hypertension, and Unspecified cerebral artery occlusion with cerebral infarction. Past Surgical History: has a past surgical history that includes Appendectomy; Ankle surgery (Left); Carpal tunnel release (Right); Neck surgery; sinus surgery (10/06/2012); Knee arthroscopy (Right); brain surgery; Cardiac catheterization; tracheostomy (07/06/2013); Deep brain stimulator placement; Dialysis fistula creation (03/06/2014); Upper gastrointestinal endoscopy (05/03/2011); Colonoscopy (06/03/2003); hernia repair (Right); Upper gastrointestinal endoscopy (); Uvulopalatopharygoplasty; Colonoscopy (); and Cholecystectomy. Assessment Body Structures, Functions, Activity Limitations Requiring Skilled Therapeutic Intervention: Decreased functional mobility ;Decreased tolerance to work activity;Decreased strength;Decreased endurance;Decreased balance;Increased pain Assessment: Pt instructed in use of RW, educated on fall risk and complete sit <> stand x close SBA with verbal instruction using a walker. Pt able to weight shift in standing x 3 with abrupt need to sit demonstrating high fall risk . Pt has difficulty lifting bilateral LE's against gravity in sitting poor DF, unable to complete seated leg raise or march. bilatereral LE strength functionally assessed as pt stands from sitting using bilateral UE's pushing through chair arms and LE's to stand to walker with Close CGA. from chair to stand with walker.Pt will continue to benefit from PT intervention to progress functional abilty and mobility needed to regain prior level of safety and function Therapy Prognosis: Good Decision Making: Medium Complexity Clinical Presentation: evolving Requires PT Follow-Up: Yes Activity Tolerance Activity Tolerance: Patient tolerated evaluation without incident;Other (comment) Plan Physical Therapy Plan General Plan: (5-6x/wk) Current Treatment Recommendations: Strengthening, Balance training, Functional mobility training, Transfer training, Endurance training, Gait training, Neuromuscular re-education, Stair training, Therapeutic activities, Home exercise program Additional Comments: Progress activity as indicated and tolerated due to fluccuating abilies Safety Devices Type of Devices: Patient at risk for falls, Left in chair, Gait belt, Call light within reach Restraints Restraints Initially in Place: No Restrictions Restrictions/Precautions Restrictions/Precautions: Up as Tolerated, Fall Risk, General Precautions Required Braces or Orthoses?: No Position Activity Restriction Other position/activity restrictions: Up as tolerated, orthostatic checks . Pt report progressive LE weakness more frequent falls, activity as tolerated up with assist , pt had DBS in place Subjective General Chart Reviewed: Yes Patient assessed for rehabilitation services?: Yes Additional Pertinent Hx: 63 y.o. male who presents with bilateral lower extremity weakness Pending CT cervical spine Neuro checks per floor protocol, oethostatic monitored Response To Previous Treatment: Patient with no complaints from previous session. Family / Caregiver Present: No Follows Commands: Within Functional Limits Other (Comment): Pt is awake and alert up to chair upon arrival, General Comment Comments: orthostatic monitor sitting 153/91 sitting unable to obtain standing BP due to pt's poor tolearnce in standing , Pt report independent with use of cane for baseline mobility with progressive worsening general weakness, multiple falls and all over pain Subjective Subjective: left leg and hip pain and general all over pain reated between 7-07/15, Pt able to continue with assessment, nurse notified and medicated pt as ordered. Social/Functional History Social/Functional History Lives With: Spouse Type of Home: House Home Layout: Two level, Performs ADL's on one level, Able to Live on Main level with bedroom/bathroom Home Access: Stairs to enter with rails Entrance Stairs - Number of Steps: 3 Entrance Stairs - Rails: Right Bathroom Shower/Tub: Walk-in shower Bathroom Equipment: Grab bars in shower Home Equipment: Walker, rolling, Cane Has the patient had two or more falls in the past year or any fall with injury in the past year?: Yes (pt reports having 4 falls in the last few days) Receives Help From: Family ( provides help with dressing and destiny yarelis majority of cooking and cleaning.) ADL Assistance: Needs assistance Toileting: Independent Homemaking Assistance: Needs assistance Homemaking Responsibilities: Yes Ambulation Assistance: Needs assistance Transfer Assistance: Needs assistance Active Mill Feeder: No Patient's Mill Feeder Info: riends from [employer]. 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 provides help with dressing and performs the majority of home care tasks. pt struggles with careing for self d/t pain, weakness, and tremors. Vision/Hearing Vision Vision: (Pt report progressive worsening in vision) Cognition Orientation Overall Orientation Status: Impaired Orientation Level: Oriented to place;Oriented to person;Oriented to situation Cognition Overall Cognitive Status: WFL Cognition Comment: pt having fluent conversation throughout session no confusion, increased cuing or repition needed Objective Pulse: (!) 105 Heart Rate Source: Monitor BP: (!) 153/91 MAP (Calculated): 112 Respirations: 18 SpO2: 95 % O2 Device: PAP (positive airway pressure) Temp: 98.8 F (37.1 C) Observation/Palpation Posture: Good Gross Assessment AROM: Generally decreased, functional PROM: Within functional limits Strength: Generally decreased, functional Coordination: Generally decreased, functional Tone: Abnormal Sensation: Intact AROM RLE (degrees) RLE AROM: Exceptions RLE General AROM: Pt has difficulty lifting bilateral LE's against gravity in sitting poor DF, unable to complete seated leg raise or march. AROM LLE (degrees) LLE AROM : Exceptions LLE General AROM: Pt has difficulty lifting bilateral LE's against gravity in sitting poor DF, unable to complete seated leg raise or march. AROM RUE (degrees) RUE AROM : WFL AROM LUE (degrees) LUE AROM : WFL Strength RLE Strength RLE: WFL Strength LLE Strength LLE: WFL Strength RUE Strength RUE: WFL Strength LUE Strength LUE: WFL Strength Other Other: Pt has difficulty lifting bilateral LE's against gravity in sitting poor DF, unable to complete seated leg raise or march. bilatereral LE strength functionally assessed as pt stands from sitting using bilateral UE's pushing through chair arms and LE's to stand to walker with Close CGA. from chair to stand with walker. Ambulation Surface: Level tile Device: Rolling Walker Quality of Gait: Pt presents with general weakness and deconditioing unable to lift LE's against gravity, poor standing tolerance, fair abiltiy to weight shift, poor abilty to stand and initiate march with LE shaking and buckeling with abrupt need to sit x 2, stand pivot recommended at this time due to high fall risk. Gait Deviations: Slow Raegan;Increased PAIGE;Decreased step length;Decreased step height Distance: Pt unable to initiate step without LOB and abupt need to sit, complaint of pain with standing activity Comments: Pt presents with general weakness and deconditioing unable to lift LE's against gravity, poor standing tolerance, fair abiltiy to weight shift, poor abilty to stand and initiate march with LE shaking and buckeling with abrupt need to sit x 2, stand pivot recommended at this time due to high fall risk. More Ambulation?: No Stairs/Curb Stairs?: No Balance Posture: Good Sitting - Static: Good Sitting - Dynamic: Good Standing - Static: Fair Standing - Dynamic: Fair;- Comments: balance assessed in standing with use of rolling walker, unsteady in standing tolerating standing x 2 min, difficulaty weight shifting Functional Reach Test Fall Risk (Score of <10 inches is fall risk): Yes [facility] Basic Mobility - Inpatient How much help is needed turning from your back to your side while in a flat bed without using bedrails?: None How much help is needed moving from lying on your back to sitting on the side of a flat bed without using bedrails?: A Little How much help is needed moving to and from a bed to a chair?: A Little How much help is needed standing up from a chair using your arms?: A Little How much help is needed walking in hospital room?: A Lot How much help is needed climbing 3-5 steps with a railing?: A Lot [facility] Inpatient Mobility Raw Score : 17 [facility] Inpatient T-Scale Score : 42.13 Mobility Inpatient CMS 0-100% Score: 50.57 Mobility Inpatient CMS G-Code Modifier : CK Goals Short Term Goals Time Frame for Short Term Goals: 14 visits Short Term Goal 1: Pt to ambulate 50 ft mod I with least AD Short Term Goal 2: Pt to transfer from alternate surface heights with Min A demonstrating safety with AD Short Term Goal 3: Pt to ascend/descend 4 steps with Mod I and rigth railing Short Term Goal 4: Pt to be provided verbal, written and practical instruction in bilateral LE ROM exercises to improve general strength and activity tolerance. Patient Goals Patient Goals : To return home Education Patient Education Education Given To: Patient Education Provided: Role of Therapy;Plan of Care;Precautions;Transfer Training;Equipment;Fall Prevention Strategies Education Provided Comments: Pt educated on fall risk, safety with use of walker vs cane due to progressive weakness and multiple falls. Education Method: Verbal Barriers to Learning: None Education Outcome: Verbalized understanding;Continued education needed Therapy Time Individual Concurrent Group Co-treatment Time In 1130 Time Out 1216 Minutes 46 Timed Code Treatment Minutes: 30 Minutes Alice Brown PT, DPT Images from the original note were not included. [facility] Office: [phone] Alberto Rice DO, Luciano Murphy DO, Humza James DO, Jc Maria DO, Nancy Paz MD, Naz Cruz MD, Demetrio Patel MD, Hortensia Maynard MD, Filiberto Vizcaino MD, Polly Ramos MD, Julia Blanco MD, Bibi Kim, DO, Yaneli Lugo MD, Chepe Pfeiffer MD, Andry Rice, DO, Jamia Nur MD, Obi Alford, DO, Jacquelyn Roper MD, Almita Moya MD, Jackie Rivas MD, Kylie Morales MD, Pasha Roy MD, Daniel Swenson MD, Marvin Sneed MD, Abdirahman Hunt MD, Da Moore MD, Geneva Casiano MD, Matthew Perez, DO, Tk Connor DO, Jess Parker MD, Garett Valentine MD, Rosalia Mobley, DIRECTOR OF STUDENT FINANCIAL AID, Criss Gray, DIRECTOR OF STUDENT FINANCIAL AID, Lefty Matute, DIRECTOR OF STUDENT FINANCIAL AID, Brittny Quinones, DNP, Kacey Meeks, DIRECTOR OF STUDENT FINANCIAL AID, Sugey Barillas, DIRECTOR OF STUDENT FINANCIAL AID, Mary Jo Bonner, DIRECTOR OF STUDENT FINANCIAL AID, Kathy Granados, DIRECTOR OF STUDENT FINANCIAL AID, Sigrid Velásquez, DIRECTOR OF STUDENT FINANCIAL AID, Janine Turpin PA-C, KATHRIN MercedesC, Savi Iqbal, DIRECTOR OF STUDENT FINANCIAL AID, Beckie Mello, DIRECTOR OF STUDENT FINANCIAL AID, Nora Mace, DIRECTOR OF STUDENT FINANCIAL AID, Jyoti Rojo, VENDING TECHNICIAN, Ronda Sellers, DIRECTOR OF STUDENT FINANCIAL AID, Janell Hoyt, DIRECTOR OF STUDENT FINANCIAL AID, Caryl Gonzalez, DIRECTOR OF STUDENT FINANCIAL AID [facility] IN-PATIENT SERVICE [facility] Progress Note 12/01/2023 1:10 PM Name: Andry Pierre Acct: [id number] Room: 0143/0143-01 Day: 2 Admit Date: 11/29/2023 8:06 PM PCP: Say Mccormick MD Code Status: Full Code Subjective: C/C: chest pain and dizziness Interval History Status: not changed. Patient tried to work with therapy but could not stand up. He said he felt too weak. Also felt dizzy. He says he has chronic chest pain for the last few months. Blood sugar is getting elevated now. Blood pressure is slightly on the higher side but he is allergic to multiple medications. Brief History: Per documentation Andry Pierre is a 63 y.o. 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 and is admitted to the hospital for the management of AMS (altered mental status). Patient transferred from [place] after undergoing tilt table evaluation for concern for orthostasis on 11/28/2022 with history of recurrent episodes of dizziness with history of stroke, complicated history. tilt table test complicated by worsening acute symptoms of dizziness with chest pain with altered sensorium. Although tilt test unremarkable for orthostasis, patient was evaluated in ED with acute symptoms and recommended admission pending transfer to [facility] for neurology evaluation. Unfortunately with bed availability transfer was delayed until today. Patient with multiple somatic complaints. Describes worsening sciatica with increasing leg weakness with worsening pain status post recent fall November 24 with worsening radicular symptoms and neck and lumbar spine. He does describe frequent episodes of chest pain 5-6 times daily lasting minutes midsternum with crushing type symptoms radiating to his neck. Describes occasional nausea . Unintentional weight loss of 20 pounds in the past month with poor p.o. intake. Constant neck pain with recurrent headaches. Intermittent choking episodes with dysphagia. Recurrent episodes of palpitations daily lasting minutes sometimes associated with the chest pain, sometimes not with occasional shortness of breath While in [place] ED patient did develop symptomatic hypoglycemia with blood sugars in the 50s with symptoms of feeling funny . 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 Subsequently returned status post fall 11/24 with worsening back pain, weakness with atypical chest pain, shortness of breath. Medications: Allergies: Allergies Allergen Reactions Beta Adrenergic Blockers Other reaction(s): Headache Hydralazine Headache, nausea, sick Neuromuscular Blocking Agents [Neuromuscular Blocking Agents] After neurotin was prescribed had a stroke Neurontin [Gabapentin] Valium Was on the ground after took it Other Nausea And Vomiting Headache and nausea with some beta blockers Current Meds: Scheduled Meds: insulin glargine 2 Units SubCUTAneous Daily atorvastatin 40 mg Oral Daily [Held by provider] metFORMIN 500 mg Oral BID montelukast 10 mg Oral Daily NIFEdipine 90 mg Oral Daily pantoprazole 40 mg Oral Daily topiramate 100 mg Oral BID warfarin placeholder: dosing by pharmacy Other RX Placeholder insulin lispro 0-4 Units SubCUTAneous TID WC insulin lispro 0-4 Units SubCUTAneous Nightly valsartan 160 mg Oral Daily cloNIDine 0.1 mg Oral BID sodium chloride flush 5-40 mL IntraVENous 2 times per day Vitamin D 5,000 Units Oral Daily Continuous Infusions: dextrose sodium chloride PRN Meds: labetalol, glucose, dextrose bolus OR dextrose bolus, glucagon (rDNA), dextrose, morphine, sodium chloride flush, sodium chloride, potassium chloride OR potassium alternative oral replacement OR potassium chloride, magnesium sulfate, ondansetron OR ondansetron, polyethylene glycol, acetaminophen OR acetaminophen Data: Past Medical History: has a past medical history of Arthritis, Asthma, CHF (congestive heart failure) ([facility]), CKD (chronic kidney disease) stage 2, GFR 60-89 ml/min, Clotting disorder ([facility]), Congenital heart disease, COPD (chronic obstructive pulmonary disease) ([facility]), Depression, Emphysema of lung ([facility]), GERD (gastroesophageal reflux disease), GERD (gastroesophageal reflux disease), Gout, Headache(784.0), Hernia, Hernia, History of blood clots, History of DVT (deep vein thrombosis), Hyperlipidemia, Insomnia, Irritable bowel syndrome, Kidney stones, Lumbar degenerative disc disease, Lumbar radiculopathy, Obesity, PAM (obstructive sleep apnea), Parkinson disease, Parkinson's disease, Post traumatic stress disorder, Renal disease, Rheumatoid arthritis ([facility]), Stroke ([facility]), Stroke risk, Tracheostomy in place ([facility]), Tremors of nervous system, Type II or unspecified type diabetes mellitus without mention of complication, not stated as uncontrolled, Uncontrolled hypertension, and Unspecified cerebral artery occlusion with cerebral infarction. Social History: reports that he has never smoked. He has never been exposed to tobacco smoke. He has quit using smokeless tobacco. His smokeless tobacco use included chew. He reports that he does not drink alcohol and does not use drugs. Family History: Family History Problem Relation Age of Onset Heart Disease Mother Stroke Mother Arthritis Mother High Blood Pressure Mother Heart Disease Father Stroke Father Heart Attack Father High Blood Pressure Father Cancer Paternal Grandfather Substance Abuse Sister High Blood Pressure Sister Substance Abuse Brother High Blood Pressure Maternal Grandmother Heart Disease Maternal Grandmother High Blood Pressure Paternal Grandmother Heart Disease Paternal Grandmother Vitals: BP (!) 153/91 Pulse (!) 105 Temp 98.8 F (37.1 C) (Oral) Resp 18 Ht 1.803 m (5' 11 ) Wt 133.2 kg (293 lb 10.4 oz) SpO2 95% BMI 40.96 kg/m Temp (24hrs), Av.4 F (36.9 C), Min:98 F (36.7 C), Max:98.8 F (37.1 C) Recent Labs 11/30/23201412/01/23 0637 12/01/23 0812 12/01/23 1232 POCGLU 231* 148* 150* 226* I/O (24Hr): Intake/Output Summary (Last 24 hours) at 12/01/2023 1310 Last data filed at 12/01/2023 0600 Gross per 24 hour Intake 550 ml Output 600 ml Net -50 ml Labs: Hematology: Recent Labs 11/28/23 1425 11/30/23 0648 12/01/23 0606 WBC 9.2 10.1 10.9 RBC 5.09 4.94 4.68 HGB 15.9 15.4 14.6 HCT 48.5 49.3 46.3 MCV 95.3 99.8 98.9 MCH 31.2 31.2 31.2 MCHC 32.8 31.2 31.5 RDW 14.0 14.2 14.4 PLT 233 214 223 MPV 9.9 10.0 10.4 SEDRATE -- 18 -- CRP -- 4.8 -- INR -- 3.0 2.8 Chemistry: Recent Labs 11/28/23 1425 11/28/23 1555 11/29/23201711/30/23 0648 12/01/23 0606 NA 143 -- 144 146* 140 K 3.9 -- 4.1 3.7 3.8 CL 107 -- 109* 114* 108* CO2 GLUCOSE 77 -- 151* 49* 144* BUN 29* -- 36* 37* 39* CREATININE 1.8* -- 1.6* 1.5* 1.6* MG 2.5 -- -- 2.7* -- ANIONGAP 9 -- 11 11 10 LABGLOM 42* -- 48* 52* 48* CALCIUM 9.1 -- 8.9 8.9 8.9 CAION -- -- -- 1.21 -- PHOS -- -- -- 3.5 -- PSA -- -- -- -- 1.50 TROPHS 24* 25* -- -- -- CKTOTAL -- -- -- 69 -- MYOGLOBIN -- -- -- 59 -- Recent Labs 11/28/23 1425 11/28/23201411/29/23201711/29/23 2034 11/30/23 0648 11/30/23 0807 11/30/23 0830 11/30/23 0930 11/30/23 1430 11/30/23 1628 11/30/23201412/01/23 0637 12/01/23 0812 12/01/23 1232 PROT -- -- 6.5 -- -- -- -- -- -- -- -- -- -- -- LABALBU -- -- 3.4* -- -- -- -- -- -- -- -- -- -- -- TSH 0.43 -- -- -- -- -- 0.36 -- -- -- -- -- -- -- AST -- -- 18 -- -- -- -- -- -- -- -- -- -- -- ALT -- -- 14 -- -- -- -- -- -- -- -- -- -- -- LDH -- -- -- -- 243* -- -- -- -- -- -- -- -- -- ALKPHOS -- -- 93 -- -- -- -- -- -- -- -- -- -- -- BILITOT -- -- 0.3 -- -- -- -- -- -- -- -- -- -- -- AMMONIA <10* -- -- -- -- -- -- -- -- -- -- -- -- -- POCGLU -- < > -- < > -- < > -- < > 98 154* 231* 148* 150* 226* < > = values in this interval not displayed. ABG: Lab Results Component Value Date/Time PH 7.413 08/22/2011 03:20 PM PCO2 41.5 08/22/2011 03:20 PM PO2ART 92.5 08/22/2011 03:20 PM KZZ2NJT 26.0 08/22/2011 03:20 PM NBEA NOT REPORTED 08/22/2011 03:20 PM PBEA 1.8 08/22/2011 03:20 PM [id number] 95.6 08/22/2011 03:20 PM FIO2 INFORMATION NOT PROVIDED 11/30/2023 12:05 AM Lab Results Component Value Date/Time SPECIAL NOT REPORTED 10/20/2012 10:15 AM SPECIAL NOT REPORTED 10/20/2012 10:15 AM Lab Results Component Value Date/Time CULTURE NO GROWTH 10/20/2012 10:15 AM CULTURE 10/20/2012 10:15 AM Performed at [facility] [address] [id number] Radiology: XR CHEST (2 VW) Result Date: 11/29/2023 No acute chest process. No acute intracranial abnormality. Stable metallic probe inserted via the left frontal approach with the tip in the left thalamic area. No obvious complications. CT Head WO Contrast Result Date: 11/29/2023 No acute chest process. No acute intracranial abnormality. Stable metallic probe inserted via the left frontal approach with the tip in the left thalamic area. No obvious complications. Physical Examination: General appearance: alert, cooperative and no distress Mental Status: oriented to person, place and time and normal affect Lungs: clear to auscultation bilaterally, normal effort Heart: regular rate and rhythm, no murmur Abdomen: soft, nontender, nondistended Assessment: Hospital Problems Last Modified POA * (Principal) AMS (altered mental status) 11/28/2023 Yes Lumbar degenerative disc disease (Chronic) 11/30/2023 Yes Diabetic neuropathy (HCC) (Chronic) 11/30/2023 Yes Sleep apnea, obstructive (Chronic) 11/30/2023 Yes Overview Signed 01/25/2014 12:25 PM by Servando Diego MD S/p Tracheotomy Chronic kidney disease (CKD), stage III (moderate) (HCC) 11/30/2023 Yes CHF (congestive heart failure) (HCC) 11/30/2023 Yes Uncontrolled hypertension 11/30/2023 Yes Dysphagia 11/30/2023 Yes GERD (gastroesophageal reflux disease) 11/30/2023 Yes S/P deep brain stimulator placement 11/30/2023 Yes Spondylarthrosis 11/30/2023 Yes DM type 2 with diabetic peripheral neuropathy (HCC) 11/30/2023 Yes Altered mental status 11/29/2023 Yes Multiple falls 11/30/2023 Yes Essential tremor 11/30/2023 Yes Principal Problem: AMS (altered mental status) Active Problems: Lumbar degenerative disc disease Diabetic neuropathy (HCC) Sleep apnea, obstructive Chronic kidney disease (CKD), stage III (moderate) (HCC) CHF (congestive heart failure) (HCC) Uncontrolled hypertension Dysphagia GERD (gastroesophageal reflux disease) S/P deep brain stimulator placement 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 * Plan: Acute encephalopathy on admission-resolved Uncontrolled hypertension-valsartan dose was increased yesterday, continue with that. Continue Procardia. Increase the dose of clonidine Acute on chronic weakness of lower extremities with debility-nonspecific symptoms. Follow neurology and neurosurgery plan. CT cervical spine to be done today Chest pain-has been chronic. No pleuritic component. Follow cardiology plan we were consulted yesterday. No hypoxia no shortness of breath Diabetes mellitus-A1c was 8.8 but had hypoglycemia yesterday. Currently sugars are increasing, will restart Lantus but at only 2 units and then adjust accordingly Recurrent [id number] neurology plan History of prothrombin gene mutation with prior DVT-continue Coumadin CKD stage III-continue to monitor creatinine and will need follow-up with nephrology/PCP PAM on CPAP Discharge planning after the above workup Polly Ramos MD 12/01/2023 1:10 PM NEUROLOGY INPATIENT PROGRESS NOTE 12/01/2023 Subjective: Andry Pierre is a 63 y.o. male admitted on 11/29/2023 with AMS (altered mental status) [R41.82] Altered mental status [R41.82] Mr Andry Pierre is a 63-year-old male with severe essential tremor, s/p left DBS (2002), prior cva with residual left-sided weakness (2003) and diabetic polyneuropathy was admitted on 11/29/2023 with c/o my legs are weak . Neurology is consulted for evaluation of encephalopathy. Presently patient is alert awake oriented x 3. Following commands well. Upon further questioning; patient's at bedside stated that patient has had episodes of confusion with occasional staring spells. But no report of tongue bite or bladder incontinence. Caregivers did not witness him having any seizure activity. No current facility-administered medications on file prior to encounter. Current Outpatient Medications on File Prior to Encounter Medication Sig Dispense Refill lidocaine (LIDODERM) 5 % Place 1 patch onto the skin every 24 hours indomethacin (INDOCIN) 50 MG capsule TAKE 1 CAPSULE BY MOUTH THREE TIMES A DAY NEEDED FOR PAIN WITH FOOD OR MILK for 30 (Patient not taking: Reported on 11/29/2023) JARDIANCE 10 MG tablet Take 1 tablet by mouth daily (Patient not taking: Reported on 11/29/2023) cloNIDine (CATAPRES) 0.1 MG tablet Take 0.5 tablets by mouth 2 times daily (Patient not taking: Reported on 11/29/2023) candesartan (ATACAND) 8 MG tablet Take 1 tablet by mouth daily cetirizine (ZYRTEC) 10 MG tablet Take 1 tablet by mouth daily metFORMIN (GLUCOPHAGE) 500 MG tablet Take 1 tablet by mouth 2 times daily (with meals) (Patient not taking: Reported on 11/29/2023) Insulin Degludec (TRESIBA FLEXTOUCH) 200 UNIT/ML SOPN Inject 60 Units into the skin in the morning and at bedtime Cholecalciferol (VITAMIN D3) 50 MCG (1999 UT) CAPS Take 1 capsule by mouth daily (Patient not taking: Reported on 11/29/2023) albuterol sulfate (PROAIR RESPICLICK) 108 (90 Base) MCG/ACT aerosol powder inhalation Inhale 1 puff into the lungs every 4 hours as needed (Patient not taking: Reported on 11/28/2023) furosemide (LASIX) 40 MG tablet TAKE 1 TABLET BY MOUTH TWICE A DAY (Patient not taking: Reported on 11/29/2023) montelukast (SINGULAIR) 10 MG tablet TAKE 1 TABLET BY MOUTH EVERY DAY NIFEdipine (PROCARDIA XL) 90 MG extended release tablet TAKE 1 TABLET BY MOUTH EVERY DAY oxybutynin (DITROPAN-XL) 10 MG extended release tablet TAKE 1 TABLET BY MOUTH EVERY DAY potassium chloride (KLOR-CON M) 20 MEQ TBCR extended release tablet Take 1 tablet by mouth daily pantoprazole (PROTONIX) 40 MG tablet TAKE 1 TABLET BY MOUTH EVERY DAY warfarin (COUMADIN) 5 MG tablet Take 1 tablet by mouth traMADol (ULTRAM) 50 MG tablet Take 1 tablet by mouth every 6 hours as needed for Pain (Patient not taking: Reported on 11/28/2023) 120 tablet 0 atorvastatin (LIPITOR) 40 MG tablet Take 1 tablet by mouth daily 90 tablet 3 topiramate (TOPAMAX) 50 MG tablet Take 2 tablets by mouth 2 times daily take 2 tablets by mouth twice a day 120 tablet 3 BD PEN NEEDLE ANTHONY U/F 32G X 4 MM [facility] [place] ACCU-CHEK COMPACT PLUS strip 0 Allergies: Andry Pierre is allergic to beta adrenergic blockers, hydralazine, neuromuscular blocking agents [neuromuscular blocking agents], neurontin [gabapentin], valium, and other. Past Medical History: Diagnosis Date Arthritis Asthma CHF (congestive heart failure) ([facility]) CKD (chronic kidney disease) stage 2, GFR 60-89 ml/min 02/16/2014 Clotting disorder ([facility]) Congenital heart disease COPD (chronic obstructive pulmonary disease) ([facility]) Depression Emphysema of lung ([facility]) GERD (gastroesophageal reflux disease) GERD (gastroesophageal reflux disease) Gout Headache(784.0) Hernia Hernia History of blood clots History of DVT (deep vein thrombosis) Hyperlipidemia Insomnia Irritable bowel syndrome Kidney stones Lumbar degenerative disc disease 01/25/2014 Lumbar radiculopathy 01/25/2014 Obesity PAM (obstructive sleep apnea) 11/16/2013 Parkinson disease Parkinson's disease Post traumatic stress disorder Renal disease Rheumatoid arthritis (HCC) Stroke (HCC) 2018 Stroke risk Tracheostomy in place (HCC) 08/22/2011 Tremors of nervous system Type II or unspecified type diabetes mellitus without mention of complication, not stated as uncontrolled Uncontrolled hypertension 06/09/2014 Unspecified cerebral artery occlusion with cerebral infarction x2 Past Surgical History: Procedure Laterality Date ANKLE SURGERY Left APPENDECTOMY BRAIN SURGERY brain stimulator CARDIAC CATHETERIZATION CARPAL TUNNEL RELEASE Right CHOLECYSTECTOMY COLONOSCOPY 06/03/2003 normal COLONOSCOPY DEEP BRAIN STIMULATOR PLACEMENT DIALYSIS FISTULA CREATION 03/06/2014 pt denies, had quiton placed for 2 emergency dialysis treatments HERNIA REPAIR Right Inguinal KNEE ARTHROSCOPY Right NECK SURGERY removed tumor out of neck SINUS SURGERY 10/06/2012 TRACHEOSTOMY 07/06/2013 removed UPPER GASTROINTESTINAL ENDOSCOPY 05/03/2011 ? polyp at GE junction UPPER GASTROINTESTINAL ENDOSCOPY chronic inflammation UVULOPALATOPHARYGOPLASTY Medications: atorvastatin 40 mg Oral Daily [Held by provider] metFORMIN 500 mg Oral BID WC montelukast 10 mg Oral Daily NIFEdipine 90 mg Oral Daily pantoprazole 40 mg Oral Daily topiramate 100 mg Oral BID warfarin placeholder: dosing by pharmacy Other RX Placeholder insulin lispro 0-4 Units SubCUTAneous TID WC insulin lispro 0-4 Units SubCUTAneous Nightly valsartan 160 mg Oral Daily cloNIDine 0.1 mg Oral BID sodium chloride flush 5-40 mL IntraVENous 2 times per day Vitamin D 5,000 Units Oral Daily PRN Meds include: labetalol, glucose, dextrose bolus OR dextrose bolus, glucagon (rDNA), dextrose, morphine, sodium chloride flush, sodium chloride, potassium chloride OR potassium alternative oral replacement OR potassium chloride, magnesium sulfate, ondansetron OR ondansetron, polyethylene glycol, acetaminophen OR acetaminophen Objective: BP (!) 141/85 Pulse 70 Temp 98.8 F (37.1 C) (Oral) Resp 18 Ht 1.803 m (5' 11 ) Wt 133.2 kg (293 lb 10.4 oz) SpO2 92% BMI 40.96 kg/m Blood pressure range: Systolic (24hrs), Av , Min:122 , Max:186 ; Diastolic (24hrs), Av, Min:85, Max:112 Neurologic exam with intact mentation; unremarkable cranial nerve exam; motor exam significant for 3/5 in upper extremities, 2/5 in lower extremities with atrophy in hand intrinsics; hyporeflexic DTRs throughout; with mixed action and resting tremor in bilateral upper extremities, left greater than right with no cogwheeling. Data: Lab Results: CBC: Recent Labs 11/28/23 1425 11/30/23 0648 12/01/23 0606 WBC 9.2 10.1 10.9 HGB 15.9 15.4 14.6 PLT 233 214 223 BMP: Recent Labs 11/29/23 2018 11/30/23 0648 12/01/23 0606 NA 144 146* 140 K 4.1 3.7 3.8 CL 109* 114* 108* CO2 BUN 36* 37* 39* CREATININE 1.6* 1.5* 1.6* GLUCOSE 151* 49* 144* No results for input(s): COLORU , PHUR , LABCAST , WBCUA , RBCUA , MUCUS , TRICHOMONAS , YEAST , BACTERIA , CLARITYU , SPECGRAV , LEUKOCYTESUR , UROBILINOGEN , BILIRUBINUR , BLOODU in the last 72 hours. Invalid input(s): NITRATE , GLUCOSEUKETONESUAMORPHOUS Lab Results Component Value Date CHOL 203 (H) 07/18/2015 LDLCHOLESTEROL 124 07/18/2015 HDL 32 (L) 07/18/2015 TRIG 233 (H) 07/18/2015 ALT 14 11/29/2023 AST 18 11/29/2023 TSH 0.36 11/30/2023 INR 2.8 12/01/2023 LABA1C 8.8 (H) 11/25/2023 [id number] 397 11/30/2023 MG 2.7 (H) 11/30/2023 PHOS 3.5 11/30/2023 Impression and Plan: Mr. Andry Pierre is a 63 y.o. male with Episodic confusion; witnessed brief staring spells as per his at bedside; will get EEG and proceed accordingly. History of CVA with prothrombin gene mutation; history of DVT; on Coumadin anticoagulation. Coexisting action tremor/essential tremors; s/p left DBS (2002) Bilateral lower extremity weakness with severe diabetic neuropathy; neurosurgery evaluation in progress. Comorbid diabetes and hypertension: On insulin and valsartan and Procardia and clonidine as per primary team. Will follow with you. This note was partially created using voice recognition software and is inherently subject to errors including those of syntax and sound alike substitutions which may escape proofreading. In such instances, original meaning may be extrapolated by contextual derivation. Neurosurgery FANG/Resident Daily Progress Note CC:No chief complaint on file. 12/01/2023 6:20 AM Chart reviewed. No acute events overnight. No new complaints. Reports that his leg still feel numb. He reports numbness in his fingertips that is not new. He has not worked with PT yet Vitals: 11/30/23202411/30/23 2325 12/01/23 0345 12/01/23 0403 BP: (!) 137/98 (!) 122/99 (!) 126/90 Pulse: 95 75 69 68 Resp: 18 18 Temp: 98.1 F (36.7 C) 98 F (36.7 C) 98.6 F (37 C) TempSrc: Oral Oral Axillary SpO2: 93% 94% 97% 97% Weight: Height: PE: AOx3 PERRL, EOMI Motor L deltoid 5/5; R deltoid 5/5 L biceps 5/5; R biceps 5/5 L triceps 5/5; R triceps 5/5 L wrist extension 5/5; R wrist extension 5/5 L intrinsics 5/5; R intrinsics 5/5 L iliopsoas 5/5 , R iliopsoas 5/5 3-4/5 BLE exception of weaker hip flexion Tremors BUE noted Sensation: diminished BLE Lab Results Component Value Date WBC 10.1 11/30/2023 HGB 15.4 11/30/2023 HCT 49.3 11/30/2023 PLT 214 11/30/2023 CHOL 203 (H) 07/18/2015 TRIG 233 (H) 07/18/2015 HDL 32 (L) 07/18/2015 ALT 14 11/29/2023 AST 18 11/29/2023 NA 146 (H) 11/30/2023 K 3.7 11/30/2023 CL 114 (H) 11/30/2023 CREATININE 1.5 (H) 11/30/2023 BUN 37 (H) 11/30/2023 CO2 21 11/30/2023 TSH 0.36 11/30/2023 INR 3.0 11/30/2023 LABA1C 8.8 (H) 11/25/2023 CRP 4.8 11/30/2023 SEDRATE 18 11/30/[address] THORACIC SPINE WO CONTRAST Result Date: 11/30/2023 EXAMINATION: CT OF THE THORACIC SPINE WITHOUT CONTRAST; CT OF THE LUMBAR SPINE WITHOUT CONTRAST 11/30/2023 TECHNIQUE: CT of the thoracic spine was performed without the administration of intravenous contrast. Multiplanar reformatted images are provided for review. Automated exposure control, iterative reconstruction, and/or weight based adjustment of the mA/kV was utilized to reduce the radiation dose to as low as reasonably achievable.; CT of the lumbar spine was performed without the administration of intravenous contrast. Multiplanar reformatted images are provided for review. Adjustment of mA and/or kV according to patient size was utilized. Automated exposure control, iterative reconstruction, and/or weight based adjustment of the mA/kV was utilized to reduce the radiation dose to as low as reasonably achievable. COMPARISON: Chest 18 January 2015; chest 28 November 2023 HISTORY: ORDERING SYSTEM PROVIDED HISTORY: F/u weakness TECHNOLOGIST PROVIDED HISTORY: F/u weakness; ORDERING SYSTEM PROVIDED HISTORY: weakness TECHNOLOGIST PROVIDED HISTORY: weakness FINDINGS: CT thoracic spine: BONES/ALIGNMENT: A mild dextroscoliotic curvature in the midthoracic spine is noted. No acute fracture or traumatic malalignment is noted. Mild anterior loss in height in of T 10 of approximately 15% is noted, nonacute. Other vertebral bodies are well maintained in height. DEGENERATIVE CHANGES: Diffuse mild degenerative and degenerative disc changes are noted. No significant neural foraminal narrowing. No gross bony canal stenosis. SOFT TISSUES: No paraspinal mass is seen. Incidental hilar granulomatous changes are noted. CT lumbar spine: BONES/ALIGNMENT: Mild levo scoliotic curvature. No subluxation. The vertebral body heights are maintained. No osseous destructive lesion is seen. DEGENERATIVE CHANGES: Mild degenerative changes are present L3-L4 and L5-S1. Mild degenerative disc changes L4-L5 L5-S1. Disc protrusion L4-L5. SOFT TISSUES/RETROPERITONEUM: No paraspinal mass is seen. CT thoracic spine: Mild dextroscoliotic curvature. No acute fracture or traumatic malalignment. Chronic anterior loss in height of T10 of 15%. CT lumbar spine: No acute fracture or traumatic malalignment. Mild levo scoliotic curvature. Degenerative and degenerative disc changes L3 through S1. CT LUMBAR SPINE WO CONTRAST Result Date: 11/30/2023 EXAMINATION: CT OF THE THORACIC SPINE WITHOUT CONTRAST; CT OF THE LUMBAR SPINE WITHOUT CONTRAST 11/30/2023 TECHNIQUE: CT of the thoracic spine was performed without the administration of intravenous contrast. Multiplanar reformatted images are provided for review. Automated exposure control, iterative reconstruction, and/or weight based adjustment of the mA/kV was utilized to reduce the radiation dose to as low as reasonably achievable.; CT of the lumbar spine was performed without the administration of intravenous contrast. Multiplanar reformatted images are provided for review. Adjustment of mA and/or kV according to patient size was utilized. Automated exposure control, iterative reconstruction, and/or weight based adjustment of the mA/kV was utilized to reduce the radiation dose to as low as reasonably achievable. COMPARISON: Chest 18 January 2015; chest 28 November 2023 HISTORY: ORDERING SYSTEM PROVIDED HISTORY: F/u weakness TECHNOLOGIST PROVIDED HISTORY: F/u weakness; ORDERING SYSTEM PROVIDED HISTORY: weakness TECHNOLOGIST PROVIDED HISTORY: weakness FINDINGS: CT thoracic spine: BONES/ALIGNMENT: A mild dextroscoliotic curvature in the midthoracic spine is noted. No acute fracture or traumatic malalignment is noted. Mild anterior loss in height in of T 10 of approximately 15% is noted, nonacute. Other vertebral bodies are well maintained in height. DEGENERATIVE CHANGES: Diffuse mild degenerative and degenerative disc changes are noted. No significant neural foraminal narrowing. No gross bony canal stenosis. SOFT TISSUES: No paraspinal mass is seen. Incidental hilar granulomatous changes are noted. CT lumbar spine: BONES/ALIGNMENT: Mild levo scoliotic curvature. No subluxation. The vertebral body heights are maintained. No osseous destructive lesion is seen. DEGENERATIVE CHANGES: Mild degenerative changes are present L3-L4 and L5-S1. Mild degenerative disc changes L4-L5 L5-S1. Disc protrusion L4-L5. SOFT TISSUES/RETROPERITONEUM: No paraspinal mass is seen. CT thoracic spine: Mild dextroscoliotic curvature. No acute fracture or traumatic malalignment. Chronic anterior loss in height of T10 of 15%. CT lumbar spine: No acute fracture or traumatic malalignment. Mild levo scoliotic curvature. Degenerative and degenerative disc changes L3 through S1. A/P 63 y.o. male who presents with bilateral lower extremity weakness Pending CT cervical spine Neuro checks per floor protocol PT and OT Please contact neurosurgery with any changes in patients neurologic status. Tal Bennettzainabjeanmarie, SHERYL 12/01/23 6:20 AM Associated attestation - Marlon Barlow MD - 12/01/2023 10:04 PM EST I have reviewed and agree with Ms. Latham's note. I also saw and examined the patient today. He continues to have similar c/o weakness. I reviewed CTs of the spine, as well as the radiologists' reports. I am able to see records that he had an EMG done at [facility] on 11/06/23, but I am unable to access the report. A clinic note from that same day is for an encounter prior to the EMG. I do not appreciate any severe stenosis in the spine to explain his weakness, though a non-contrasted CT is a limited evaluation. A myelogram could be considered, but I think it is unlikely this would identify an underlying cause. He does not have any objective upper motor neuron signs on exam. He would also need to be off warfarin with a normal MRI to undergo a myelogram. His distribution of symptoms and exam findings are more consistent with peripheral neuropathy. I think it is unlikely that there is a surgical treatment for his symptoms. As a result, I would not plan for scheduled follow-up in my office, but he is welcome to contact me on an as needed basis. We will sign off at this time. Please contact me with questions or concerns. Occupational Therapy Facility/Department: [address] [facility] Occupational Therapy Initial Assessment Name: Andry Pierre : 1960 Date of Service: 11/30/2023 Discharge Recommendations: Patient would benefit from continued therapy after discharge OT Equipment Recommendations Equipment Needed: Yes Mobility Devices: ADL Assistive Devices ADL Assistive Devices: Shower Chair with back Other: weighted utencils Patient Diagnosis(es): There were no encounter diagnoses. Past Medical History: has a past medical history of Arthritis, Asthma, CHF (congestive heart failure) ([facility]), CKD (chronic kidney disease) stage 2, GFR 60-89 ml/min, Clotting disorder ([facility]), Congenital heart disease, COPD (chronic obstructive pulmonary disease) ([facility]), Depression, Emphysema of lung ([facility]), GERD (gastroesophageal reflux disease), GERD (gastroesophageal reflux disease), Gout, Headache(784.0), Hernia, Hernia, History of blood clots, History of DVT (deep vein thrombosis), Hyperlipidemia, Insomnia, Irritable bowel syndrome, Kidney stones, Lumbar degenerative disc disease, Lumbar radiculopathy, Obesity, PAM (obstructive sleep apnea), Parkinson disease, Parkinson's disease, Post traumatic stress disorder, Renal disease, Rheumatoid arthritis ([facility]), Stroke ([facility]), Stroke risk, Tracheostomy in place ([facility]), Tremors of nervous system, Type II or unspecified type diabetes mellitus without mention of complication, not stated as uncontrolled, Uncontrolled hypertension, and Unspecified cerebral artery occlusion with cerebral infarction. Past Surgical History: has a past surgical history that includes Appendectomy; Ankle surgery (Left); Carpal tunnel release (Right); Neck surgery; sinus surgery (10/06/2012); Knee arthroscopy (Right); brain surgery; Cardiac catheterization; tracheostomy (07/06/2013); Deep brain stimulator placement; Dialysis fistula creation (03/06/2014); Upper gastrointestinal endoscopy (05/03/2011); Colonoscopy (06/03/2003); hernia repair (Right); Upper gastrointestinal endoscopy (); Uvulopalatopharygoplasty; Colonoscopy (); and Cholecystectomy. Assessment Performance deficits / Impairments: Decreased functional mobility ;Decreased ADL status;Decreased strength;Decreased endurance;Decreased balance;Decreased coordination;Decreased high-level IADLs;Decreased fine motor control REQUIRES OT FOLLOW-UP: Yes Activity Tolerance Activity Tolerance: Patient Tolerated treatment well;Patient limited by pain Plan Occupational Therapy Plan Times Per Week: 3-5x Current Treatment Recommendations: Strengthening, ROM, Balance training, Functional mobility training, Endurance training, Cognitive reorientation, Gait training, Self-Care / ADL, Home management training, Coordination training Restrictions Restrictions/Precautions Restrictions/Precautions: Up as Tolerated, Fall Risk, General Precautions Required Braces or Orthoses?: No Subjective General Patient assessed for rehabilitation services?: Yes Additional Pertinent Hx: fall - still in pain from fall Family / Caregiver Present: Yes () Diagnosis: AMS, COPD Subjective Subjective: RN approved therapy session. Pt agreeable and willing to participate. Pt reports 10/10 pain at this time but was not grimacing or complaining of pain throughout session. distraction provided and activity increased Social/Functional History Social/Functional History Lives With: Spouse (big dog) Type of Home: House Home Layout: Two level, Performs ADL's on one level, Able to Live on Main level with bedroom/bathroom Home Access: Stairs to enter with rails Entrance Stairs - Number of Steps: 3 Entrance Stairs - Rails: Right Bathroom Shower/Tub: Walk-in shower Bathroom Equipment: Grab bars in shower Home Equipment: Walker, rolling, Cane Has the patient had two or more falls in the past year or any fall with injury in the past year?: Yes (pt reports having 4 falls in the last few days) Receives Help From: Family ( provides help with dressing and does the majority of cooking and cleaning.) ADL Assistance: Needs assistance Toileting: Independent Homemaking Assistance: Needs assistance Homemaking Responsibilities: Yes Ambulation Assistance: Needs assistance (pt reports ambulation getting progressively worse. uses cane in community and RW in the house) Transfer Assistance: Needs assistance Active Mill Feeder: No (friends from [employer]. does not drive) Occupation: On disability Additional Comments: pt reports that he has been declining and having 4 or more falls in the past month. provides help with dressing and performs the majority of home care tasks. pt struggles with caring for self d/t pain, weakness, and tremors. is not in the best health. Safety Devices Type of Devices: Patient at risk for falls;Left in chair;Gait belt;Call light within reach Restraints Restraints Initially in Place: No Bed Mobility Training Bed Mobility Training: No (pt found and retired sitting upright in recliner) Balance Sitting: (pt sat unsupported 30 mins in recliner with SUP) Standing: (PT stood 5 mins total with CGA) Transfer Training Transfer Training: Yes Overall Level of Assistance: Contact-guard assistance Sit to Stand: Contact-guard assistance Stand to Sit: Contact-guard assistance Gait Gait Training: Yes (3 steps each direction. very weak and shaky on this date. RW and gait belt) Overall Level of Assistance: Contact-guard assistance Assistive Device: Walker, rolling;Gait belt AROM: Within functional limits (WFL at all BUE jts) PROM: Generally decreased, functional Strength: Grossly decreased, non-functional (3/5 hand strength. shoulder and elbow strength NT d/t neck pain) Coordination: Generally decreased, functional (pt missed when asked to touch his nose. attempted multile times. missed x3. Thumb opposition to each finger slow and clumsy) Tone: Normal Sensation: Intact ADL Feeding: Modified independent ;Setup;Increased time to complete Feeding Skilled Clinical Factors: struggles to open containers and bring food to mouth. weak hands Grooming: Modified independent ;Increased time to complete UE Bathing: Stand by assistance;Increased time to complete LE Bathing: Contact guard assistance;Increased time to complete UE Dressing: Stand by assistance;Increased time to complete LE Dressing: Contact guard assistance;Increased time to complete Toileting: Contact guard assistance;Increased time to complete Additional Comments: pt found sitting upright in recliner. pt able to answers writers questions while sitting unsupported. pt able to don/doff bilateral socks using figure 4 position. Pt completed sit>stand transfer and took three steps forward, backward and three steps to each side. pt very unsteady when standing. pt sat to don new pants.pt able to thread pants over feet and stand to pull pants over hips. pt sat to complete ADL activities. pt washed face, brushed teeth, wash upper body and don new hospital gown. Pt retired sitting upright in recliner. pt took increased time to complete ADL tasks d/t tremor and hand weakness. Vision Vision: Impaired Vision Exceptions: Wears glasses at all times Hearing Hearing: Within functional limits Cognition Overall Cognitive Status: WFL Cognition Comment: pt having fluent conversation throughout session no confusion. increased cuing or repetition not needed Orientation Overall Orientation Status: Impaired Orientation Level: Oriented to time;Oriented to person;Disoriented to place (pt took increased time to identify time place. needed [address] [facility] and Feb (month) Education Given To: Patient () Education Provided: Role of Therapy;ADL Adaptive Strategies;Transfer Training;Plan of Care;Orientation Education Method: Demonstration;Verbal Barriers to Learning: None Education Outcome: Verbalized understanding;Demonstrated understanding AM-PAC - ADL AM-PAC Daily Activity - Inpatient How much help is needed for putting on and taking off regular lower body clothing?: A Little How much help is needed for bathing (which includes washing, rinsing, drying)?: A Little How much help is needed for toileting (which includes using toilet, bedpan, or urinal)?: A Little How much help is needed for putting on and taking off regular upper body clothing?: A Little How much help is needed for taking care of personal grooming?: None How much help for eating meals?: None AM-PAC Inpatient Daily Activity Raw Score: 20 AM-PAC Inpatient ADL T-Scale Score : 42.03 ADL Inpatient CMS 0-100% Score: 38.32 ADL Inpatient CMS G-Code Modifier : CJ Goals Short Term Goals Time Frame for Short Term Goals: By discharge pt will... Short Term Goal 1: complete LB bathing/dressing activity with SUP using LRD PRN Short Term Goal 2: complete UB bathing/dressing activity with IND Short Term Goal 3: complete all functional transfers with SUP using LRD PRN Short Term Goal 4: Demo safety awareness during func mob household distance with SUP and 1 vc using LRD PRN Short Term Goal 5: Demo standing balance during dynamic ADL activity for 10+ mins with SUP using LRD PRN Short Term Goal 6: demo 5 step functional task with 1 or less VCs to address cog concerns Therapy Time Individual Concurrent Group Co-treatment Time In 1428 Time Out 1522 Minutes 54 Timed Code Treatment Minutes: 48 Minutes Pavel Bai/[place] MEDICAL VIDEOGRAPHER ALL NOTES Facility/Department: [address] STEPDOWN CLINICAL BEDSIDE SWALLOW EVALUATION NAME: Andry Pierre : 1960 ADMISSION DATE: 11/29/2023 ADMITTING DIAGNOSIS: has COPD (chronic obstructive pulmonary disease) ([facility]); PAM (obstructive sleep apnea); Obesity, morbid (HCC); Lumbar degenerative disc disease; Lumbar radiculopathy; Lumbar facet arthropathy; Osteoarthritis of both knees; Diabetic neuropathy (HCC); Morbid obesity (HCC); Sleep apnea, obstructive; Encounter for medication monitoring; Chronic kidney disease (CKD), stage III (moderate) ([facility]); Hyperkalemia; Fatigue; Pill rolling tremor; Muscle cramps; Acute renal failure (ARF) ([facility]); Type II or unspecified type diabetes mellitus without mention of complication, not stated as uncontrolled; Depression; Irritable bowel syndrome; Obesity; CHF (congestive heart failure) ([facility]); Parkinson disease; Tremors of nervous system; Tracheostomy in place ([facility]); Bilateral lower extremity edema; CKD (chronic kidney disease); Uncontrolled hypertension; Dysphagia; Hyperlipidemia; History of DVT (deep vein thrombosis); Congenital heart disease; Emphysema of lung ([facility]); Hernia; Stroke risk; GERD (gastroesophageal reflux disease); Asthma; Renal disease; Gout; S/P deep brain stimulator placement; Parkinsons; CKD (chronic kidney disease) stage 2, GFR 60-89 ml/min; Type II or unspecified type diabetes mellitus with renal manifestations, not stated as uncontrolled(250.40); Encounter for chronic pain management; Weight loss, intentional; Spondylarthrosis; Primary osteoarthritis of both knees; DM type 2 with diabetic peripheral neuropathy ([facility]); Need for immunization against influenza; Morbid obesity due to excess calories ([facility]); Diabetic mononeuropathy associated with diabetes mellitus due to underlying condition ([facility]); AMS (altered mental status); and Altered mental status on their problem list. Recent Chest Xray/CT of Chest: 11/28/23 No acute chest process. No acute intracranial abnormality. Stable metallic probe inserted via the left frontal approach with the tip in the left thalamic area. No obvious complications. Date of Eval: 11/30/2023 Evaluating Therapist: AMALIA Khanna Current Diet level: Current Diet : NPO Current Liquid Diet : NPO Primary Complaint Andry Pierre is a 63 y.o. 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 and is admitted to the hospital for the management of AMS (altered mental status). Patient transferred from [place] after undergoing tilt table evaluation for concern for orthostasis on 11/28/2022 with history of recurrent episodes of dizziness with history of stroke, complicated history. tilt table test complicated by worsening acute symptoms of dizziness with chest pain with altered sensorium. Although tilt test unremarkable for orthostasis, patient was evaluated in ED with acute symptoms and recommended admission pending transfer to [facility] for neurology evaluation. Unfortunately with bed availability transfer was delayed until today. Patient with multiple somatic complaints. Describes worsening sciatica with increasing leg weakness with worsening pain status post recent fall November 24 with worsening radicular symptoms and neck and lumbar spine. He does describe frequent episodes of chest pain 5-6 times daily lasting minutes midsternum with crushing type symptoms radiating to his neck. Describes occasional nausea . Unintentional weight loss of 20 pounds in the past month with poor p.o. intake. Constant neck pain with recurrent headaches. Intermittent choking episodes with dysphagia. Recurrent episodes of palpitations daily lasting minutes sometimes associated with the chest pain, sometimes not with occasional shortness of breath While in [place] ED patient did develop symptomatic hypoglycemia with blood sugars in the 50s with symptoms of feeling funny . 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 Subsequently returned status post fall 11/24 with worsening back pain, weakness with atypical chest pain, shortness of breath. Pain: Pain Assessment Pain Assessment: 0-10 Pain Level: 0 Vizcaino-Whitney Pain Rating: Hurts a little bit Patient's Stated Pain Goal: 0 - No pain Pain Location: Generalized Pain Descriptors: Aching Functional Pain Assessment: Prevents or interferes some active activities and ADLs Non-Pharmaceutical Pain Intervention(s): Rest, Repositioned, Emotional support Response to Pain Intervention: Patient satisfied Side Effects: No reported side effects Reason for Referral Andry Pierre was referred for a bedside swallow evaluation to assess the efficiency of his swallow function, identify signs and symptoms of aspiration and make recommendations regarding safe dietary consistencies, effective compensatory strategies, and safe eating environment. Impression Pt presents with oral motor function WFL. Pt reports he has chronic difficulty swallowing. With all liquids and especially solids he reports globus sensation that begins at the level of the valleculae and slowly progresses through the esophagus over several mins. Pt reported this also occurred during eval. Pt demonstrated no s/s of aspiration with ice chips, tsp thin, thin by cup, thin by staw, or puree. Pt declined additional solids due to globus sensation. Given globus sensation above the level of the esophagus first, ST recommends ST recommends pt complete a modified barium swallow study. Additionally given esophageal s/s ST recommends pt have a GI consult. Until further revaluation are complete ST recommends pt consume small tsps of puree solids and small sips of thin liquid for comfort. Dysphagia Diagnosis: Suspected needs further assessment;Concerns for esophageal stage dysphagia Dysphagia Outcome Severity Scale: Level 2: Moderate Severe dysphagia- Maximum assistance or maximum use of strategies with partial PO only Treatment Plan Requires MEDICAL VIDEOGRAPHER Intervention: Yes Referral To: GI Recommended Diet and Intervention Diet Solids Recommendation: (tsp of puree as tolerated) Liquid Consistency Recommendation: (small sips of thin as tolerated) Recommendations: Modified barium swallow study Therapeutic Interventions: Patient/Family education;Diet tolerance monitoring Treatment/Goals Dysphagia Goals: The patient will tolerate instrumental swallowing procedure;The patient will tolerate recommended diet without observed clinical signs of aspiration General Chart Reviewed: Yes Behavior/Cognition: Alert;Cooperative Communication Observation: Functional Follows Directions: Simple Dentition: Some missing teeth Patient Positioning: Upright in chair Baseline Vocal Quality: Normal Oral Motor Deficits Labial: No impairment Dentition: Natural Lingual: No impairment Velum: No Impairment Mandible: No impairment Oral Phase Dysfunction Oral Phase Oral Phase: (complex textures required further assessment) Indicators of Pharyngeal Phase Dysfunction Pharyngeal Phase Pharyngeal Phase: (No overt s/s of aspiration) Pharyngeal Phase Pharyngeal Phase: (No overt s/s of aspiration) Prognosis Prognosis: Fair Prognosis Considerations: Previous Level of Function;Severity of Impairments Consulted and agree with results and recommendations: Patient;RN Education Patient Education: yes Patient Education Response: Verbalizes understanding Therapy Time [id number] Janis Velazco M.S., [facility]-MEDICAL VIDEOGRAPHER AMALIA Khanna 11/30/2023 1:24 PM MEDICAL VIDEOGRAPHER ALL NOTES Facility/Department: [address] STE[address] Initial Speech/Language/Cognitive Assessment NAME: Andry Pierre : 1960 ADMISSION DATE: 11/29/2023 ADMITTING DIAGNOSIS: has COPD (chronic obstructive pulmonary disease) ([facility]); PAM (obstructive sleep apnea); Obesity, morbid ([facility]); Lumbar degenerative disc disease; Lumbar radiculopathy; Lumbar facet arthropathy; Osteoarthritis of both knees; Diabetic neuropathy ([facility]); Morbid obesity ([facility]); Sleep apnea, obstructive; Encounter for medication monitoring; Chronic kidney disease (CKD), stage III (moderate) ([facility]); Hyperkalemia; Fatigue; Pill rolling tremor; Muscle cramps; Acute renal failure (ARF) ([facility]); Type II or unspecified type diabetes mellitus without mention of complication, not stated as uncontrolled; Depression; Irritable bowel syndrome; Obesity; CHF (congestive heart failure) ([facility]); Parkinson disease; Tremors of nervous system; Tracheostomy in place ([facility]); Bilateral lower extremity edema; CKD (chronic kidney disease); Uncontrolled hypertension; Dysphagia; Hyperlipidemia; History of DVT (deep vein thrombosis); Congenital heart disease; Emphysema of lung ([facility]); Hernia; Stroke risk; GERD (gastroesophageal reflux disease); Asthma; Renal disease; Gout; S/P deep brain stimulator placement; Parkinsons; CKD (chronic kidney disease) stage 2, GFR 60-89 ml/min; Type II or unspecified type diabetes mellitus with renal manifestations, not stated as uncontrolled(250.40); Encounter for chronic pain management; Weight loss, intentional; Spondylarthrosis; Primary osteoarthritis of both knees; DM type 2 with diabetic peripheral neuropathy ([facility]); Need for immunization against influenza; Morbid obesity due to excess calories ([facility]); Diabetic mononeuropathy associated with diabetes mellitus due to underlying condition ([facility]); AMS (altered mental status); and Altered mental status on their problem list. Date of Eval: 11/30/2023 Evaluating Therapist: AMALIA Khanna RECENT RESULTS CT OF HEAD/MRI: 11/28/23 There is no acute intracranial hemorrhage, mass effect or midline shift. No abnormal extra-axial fluid collection. The ugalde-white differentiation is maintained without evidence of an acute infarct. There is no evidence of hydrocephalus. A metallic probe can be seen with the tip in the left thalamus advancing from the left frontal area. No obvious complications. Primary Complaint: Andry Pierre is a 63 y.o. 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 and is admitted to the hospital for the management of AMS (altered mental status). Patient transferred from [place] after undergoing tilt table evaluation for concern for orthostasis on 11/28/2022 with history of recurrent episodes of dizziness with history of stroke, complicated history. tilt table test complicated by worsening acute symptoms of dizziness with chest pain with altered sensorium. Although tilt test unremarkable for orthostasis, patient was evaluated in ED with acute symptoms and recommended admission pending transfer to [facility] for neurology evaluation. Unfortunately with bed availability transfer was delayed until today. Patient with multiple somatic complaints. Describes worsening sciatica with increasing leg weakness with worsening pain status post recent fall November 24 with worsening radicular symptoms and neck and lumbar spine. He does describe frequent episodes of chest pain 5-6 times daily lasting minutes midsternum with crushing type symptoms radiating to his neck. Describes occasional nausea . Unintentional weight loss of 20 pounds in the past month with poor p.o. intake. Constant neck pain with recurrent headaches. Intermittent choking episodes with dysphagia. Recurrent episodes of palpitations daily lasting minutes sometimes associated with the chest pain, sometimes not with occasional shortness of breath While in [place] ED patient did develop symptomatic hypoglycemia with blood sugars in the 50s with symptoms of feeling funny . 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 Subsequently returned status post fall 11/24 with worsening back pain, weakness with atypical chest pain, shortness of breath. Pain: Pain Assessment Pain Assessment: 0-10 Pain Level: 0 Vizcaino-Whitney Pain Rating: Hurts a little bit Patient's Stated Pain Goal: 0 - No pain Pain Location: Generalized Pain Descriptors: Aching Functional Pain Assessment: Prevents or interferes some active activities and ADLs Non-Pharmaceutical Pain Intervention(s): Rest, Repositioned, Emotional support Response to Pain Intervention: Patient satisfied Side Effects: No reported side effects Assessment: Pt presents with mild-moderate cognitive deficits characterized by difficulties with recall, sequencing, problem solving, verbal reasoning, and thought flexibility. Pt requiring min cues for attention as well. Pt. Presents with no dysarthria, no O/M deficits at this time. ST to follow up and provide treatment to address noted deficits. Education provided. ST recommends tx 3-5x per week at this time. Recommendations: Recommendations Requires MEDICAL VIDEOGRAPHER Intervention: Yes Recommendations: Modified barium swallow study Referral To: GI Patient Education: yes Patient Education Response: Verbalizes understanding Referral To: GI Plan: Speech Therapy Prognosis Prognosis: Fair Prognosis Considerations: Previous Level of Function;Severity of Impairments Individuals consulted Consulted and agree with results and recommendations: Patient;RN Goals: Short Term Goals Goal 1: Pt will complete immediate and delayed recall tasks with 90% accuracy Goal 2: Pt will complete verbal reasoning and thought flexibility tasks with 90% accuracy Goal 3: Pt will complete problem solving and sequencing task with 90% accuracy Patient/family involved in developing goals and treatment plan: yes Subjective: Previous level of function and limitations: pt reports having increased difficulties recently, unable to clearly specify timeline or difficulties Social/Functional History Lives With: Spouse Active Mill Feeder: No Occupation: Retired Objective: Oral Motor Labial: No impairment Dentition: Natural Lingual: No impairment Velum: No Impairment Mandible: No impairment Motor Speech Apraxic Characteristics: None Intelligibility: No impairment Overall Impairment Severity: None Cognition: Orientation Overall Orientation Status: Within Normal Limits Attention Attention: Exceptions to WFL Memory Memory: Exceptions to WFL Problem Solving Problem Solving: Exceptions to WFL Abstract Reasoning Abstract Reasoning: Exceptions to WFL Safety/Judgment Safety/Judgment: Within Functional Limits Orientation: 04/11 Verbal reasoning word associations: 10/10 Sequencing: Task 1 3/4 Immediate recall: 2/3, 3/5, 0/3 Delayed recall: 0/3 3 minute delay, 0/3 7 minute delay Verbal reasoning antonyms: / Inductive reasonin/6 Verbal reasoning similarities and differences: similarities 4/4 and differences 4/4 Task insight problem solvin/3 Inductive reasoning and thought flexibility 3 reasons for... task: 2/6 Convergent thinkin/3 Deductive reasonin/5 Divergent naming (concrete): 3 Divergent naming (abstract): 4 Prognosis: Speech Therapy Prognosis Prognosis: Fair Prognosis Considerations: Previous Level of Function;Severity of Impairments Individuals consulted Consulted and agree with results and recommendations: Patient;RN Education: Patient Education: yes Patient Education Response: Verbalizes understanding Therapy Time: Individual Concurrent Group Co-treatment Time In 1145 Time Out 1157 Minutes 12 Janis Velazco M.S., [facility]-MEDICAL VIDEOGRAPHER Pharmacy Note Warfarin Consult Andry Pierre is a 63 y.o. male for whom pharmacy has been consulted to manage warfarin therapy. Consulting Physician: Dr Jamia Nur Reason for Admission: AMS Warfarin dose prior to admission: 10 MG 5 DAYS, 15 MG 2 DAYS A WEEK followed by [facility] Warfarin indication: DVT/PE Target INR range: 2.0-3.0 Past Medical History: Diagnosis Date Arthritis Asthma CHF (congestive heart failure) ([facility]) CKD (chronic kidney disease) stage 2, GFR 60-89 ml/min 02/16/2014 Clotting disorder ([facility]) Congenital heart disease COPD (chronic obstructive pulmonary disease) ([facility]) Depression Emphysema of lung ([facility]) GERD (gastroesophageal reflux disease) GERD (gastroesophageal reflux disease) Gout Headache(784.0) Hernia Hernia History of blood clots History of DVT (deep vein thrombosis) Hyperlipidemia Insomnia Irritable bowel syndrome Kidney stones Lumbar degenerative disc disease 01/25/2014 Lumbar radiculopathy 01/25/2014 Obesity PAM (obstructive sleep apnea) 11/16/2013 Parkinson disease Parkinson's disease Post traumatic stress disorder Renal disease Rheumatoid arthritis (HCC) Stroke ([facility]) 2018 Stroke risk Tracheostomy in place ([facility]) 08/22/2011 Tremors of nervous system Type II or unspecified type diabetes mellitus without mention of complication, not stated as uncontrolled Uncontrolled hypertension 06/09/2014 Unspecified cerebral artery occlusion with cerebral infarction x2 Recent Labs 11/30/23 0648 INR 3.0 Recent Labs 11/28/23 1425 11/30/23 0648 HGB 15.9 15.4 HCT 48.5 49.3 PLT 233 214 Current warfarin drug-drug interactions: Date INR Dose 11/30/2023 3.0 10 mg Will continue patient on home dose . Will monitor for any new drug interactions. Thank you for the consult. Will continue to follow. Thank you Eros Ansari PharmD, [facility] Inpatient Clinical Pharmacist [phone] Images from the original note were not included. [facility] Office: [phone] Alberto Rice DO, Luciano Murphy DO, Humza James DO, Jc Maria DO, Nancy Paz MD, Naz Cruz MD, Demetrio Patel MD, Hortensia Maynard MD, Filiberto Vizcaino MD, Polly Ramos MD, Julia Blanco MD, Bibi Kim DO, Yaneli Lugo MD, Chepe Pfeiffer MD, Andry Rice DO, Jamia Nur MD, Obi Alford DO, Jacquelyn Roper MD, Almita Moya MD, Jackie Rivas MD, Kylie Morales MD, Pasha Roy MD, Daniel Swenson MD, Marvin Sneed MD, Abdirahman Hunt MD, Da Moore MD, Geneva Casiano MD, Matthew Perez DO, Tk Connor DO, Jess Parker MD, Garett Valentine MD, Rosalia Mobley CNP, Criss Gray CNP, Lefty Matute CNP, Brittny Quinones DNP, Kacey Meeks CNP, Sugey Barillas CNP, Mary Jo Bonner CNP, Kathy Granados CNP, Sigrid Velásquez CNP, Janine Turpin PA-C, Sue Willams PA-C, Savi Iqbal CNP, Beckie Mello, DIRECTOR OF STUDENT FINANCIAL AID, Nora Mace, DIRECTOR OF STUDENT FINANCIAL AID, Jyoti Rojo, VENDING TECHNICIAN, Ronda Sellers, DIRECTOR OF STUDENT FINANCIAL AID, Janell Hoyt, DIRECTOR OF STUDENT FINANCIAL AID, Caryl Gonzalez, DIRECTOR OF STUDENT FINANCIAL AID [facility] IN-PATIENT SERVICE [facility] Progress Note 11/30/2023 7:43 AM Name: Andry Pierre Acct: [id number] Room: [address] [place] [address] Day: 1 Admit Date: 11/29/2023 8:06 PM PCP: Say Mccormick MD Code Status: Full Code Subjective: C/C: chest pain and dizziness Interval History Status: not changed. Seen and examined Complaints of intermittent chest pain, dizziness going on for months Cardiology evaluation pending Was NPO and BGs dropped to 48 D50 given and started on D5 1/ NS BGs improved and discussed with cardiology They will see patient tommorrow No need for NPO and started her on east to chew diet Speech evaluation pending Allergic to nitro, gets headaches Brief History: Per documentation Andry Pierre is a 63 y.o. 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 and is admitted to the hospital for the management of AMS (altered mental status). Patient transferred from [place] after undergoing tilt table evaluation for concern for orthostasis on 11/28/2022 with history of recurrent episodes of dizziness with history of stroke, complicated history. tilt table test complicated by worsening acute symptoms of dizziness with chest pain with altered sensorium. Although tilt test unremarkable for orthostasis, patient was evaluated in ED with acute symptoms and recommended admission pending transfer to [facility] for neurology evaluation. Unfortunately with bed availability transfer was delayed until today. Patient with multiple somatic complaints. Describes worsening sciatica with increasing leg weakness with worsening pain status post recent fall November 24 with worsening radicular symptoms and neck and lumbar spine. He does describe frequent episodes of chest pain 5-6 times daily lasting minutes midsternum with crushing type symptoms radiating to his neck. Describes occasional nausea . Unintentional weight loss of 20 pounds in the past month with poor p.o. intake. Constant neck pain with recurrent headaches. Intermittent choking episodes with dysphagia. Recurrent episodes of palpitations daily lasting minutes sometimes associated with the chest pain, sometimes not with occasional shortness of breath While in [place] ED patient did develop symptomatic hypoglycemia with blood sugars in the 50s with symptoms of feeling funny . 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 GENERATOR NEUROSTIMULATOR CRANIAL at the request of Dr. Wesley Rose for consultation. My final recommendation will [...] of Proximal Vein of Both Lower Extremities ([facility]) Pulmonary Embolus With Infarction ([facility]) Volume Overload Obesity, Class III, BMI >= 40 Recurrent Major Depression in Partial Remission ([facility]) Difficult Intravenous Access Obstructive Sleep Apnea Syndrome Parkinson's Disease (Hcc) Copd (Chronic Obstructive Pulmonary Disease) ([facility]) Tobacco Use Chf (Congestive Heart Failure) ([facility]) Ckd (Chronic Kidney Disease) Subjective CHIEF [...] Benign shuddering attacks CHF (congestive heart failure) ([facility]) ? CKD (chronic kidney disease) 01/21/2022 COPD (chronic obstructive pulmonary disease) ([facility]) 01/21/2022 Depression recent hospitalization because of depression Difficult intravenous access 01/21/2022 DVT (deep venous thrombosis) ([facility]) 2000 multiple Esophageal reflux IDDM (insulin dependent diabetes mellitus) Kidney failure Lumbago Obstructive sleep apnea syndrome Other diseases of pharynx, not elsewhere classified(478.29) Parkinson's disease ([facility]) Tobacco use 01/21/2022 Tracheal stenosis [...] +Difficult IV access Neuro: +CVA 1996, 2003, 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 +See HPI +Seizures with stroke Respiratory: Negative for Asthma, Current cough, Dyspnea, Pneumonia within 6 weeks (date) +Prior tracheostomy +PAM with surgical correction +COPD- cold with exertion, no use of albuterol in the past couple of months. +Tobacco chew use Cardiovascular: Negative for Recent IA, Angina, Arrhythmia, CAD, Chest Pain +DVT, PE [...] guidance in the past. CVA CVA in 197, 2003, 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 Denies recent CVA or TIA, not currently on ASA. Obstructive sleep apnea syndrome S/p uvulectomy, does not wear CPAP. COPD (chronic obstructive pulmonary disease) ([facility]) Stable, on albuterol PRN, Singulair. States he has SOB with exertion in cold weather. Denies recent use of albuterol, cough or SOB. Lungs CTA on exam. Tobacco use Rare use of tobacco chew products. 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 ESOPHAGEAL REFLUX Stable, on rx. Pulmonary embolus with infarction ([facility]) H/o PE/DVT in 2006, 2017. On warfarin, states his PCP is giving lovenox bridging instructions for surgery. CHF (congestive heart failure) ([facility]) EF 75% on echocardiogram 10/08/2018. Right heart cath 10/16/2018 with mild to moderately elevated right atrial pressure in absence of pulmonary HTN. On Lasix. Euvolemic on exam, denies recent SOB. Follows with cardiology, records requested. CKD (chronic kidney disease) Creatinine 1.71, eGFR 41 on 11/28/21. BMP pending. Type 2 diabetes mellitus, with long-term current use of insulin ([facility]) On Levemir. Has continuous glucose [...] initiated at this time: Requested records from freight engineer for chart completeness. The Following Tests/Procedures Have [...] TIME: 7:24 AM documented in this encounter [facility] 01-08-2022 Miscellaneous Notes Spoke with patient, his [...] time today. He was last seen in [facility] by Ming 11/08/2019. Number to return call [phone] Okay to leave a message ? Yes Last office visit 11/2019 with JS Next office visit with not scheduled Thank you calling [facility]. You will receive a return call within 48 hours ( or 2 business days if close to the weekend). If you feel that this is an urgent issue and needs immediate attention, it is recommended that you contact your primary care provider office or proceed to your nearest Urgent Care Center of Emergency Room ED for evaluation/treatment. documented in this encounter [facility] 11-26-2021 Evaluation note Encounter Date Diagnosis Assessment Notes Nov, Stage 3b chronic kidney disease (CKD) (ICD-10 - N18.32) [employer] Other 02-08-2022 Evaluation note* Encounter Date Diagnosis [...] 1 diabetes mellitus (ICD-10 - E10.21) Hemoglobin [id number] is below 7% to attenuate chronic kidney [...] I advised the patient to go to [facility] emergency room Nov, Pure hypercholestero lemia (ICD-10 - E78.00) LDL goal in chronic kidney disease patient is less than 100 to reduce the risk of cardiovascular disease. Patient is working with his PCP/freight engineer for this purpose on statin. [employer] Other 10-22-2021 NoteMR#: [id number] I [facility] Pt. Name: Andry Pierre Admitted: 07/21/2021 Discharged: [...] medical history of aforementioned comorbidities, [facility] on account of abdominal pain, upper quadrant with concern for choledocholithiasis/cholelithiasis as [facility]. The patient was referred here initially [...] A/Jesus Russ MD Date Trans: 07/27/2021 09:41 A/michaela [id number] cc: Say Mccormick M.D. 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 History of stroke Hyperlipidemia Hypertension [...] tablet, extended release oxybutynin (more content not included)...[facility]:Result Comment: Electronically Signed By: NOE GEORGE, Andry Daniel\Date and Time Signed: 03/22/21 10:59 EDTEvaluation note* Diagnosis Pre-op evaluation- Primary Preoperative examination, unspecified Essential tremor Essential and other specified forms of tremor Type 2 diabetes mellitus with other specified complication, with long-term current use of insulin ([facility]) Obesity, Class III, BMI >= 40 Morbid obesity Essential hypertension Unspecified essential hypertension Difficult intravenous access Other specified conditions influencing health status Acute, but ill-defined, cerebrovascular disease Obstructive sleep apnea syndrome Obstructive sleep apnea (adult) (pediatric) Chronic obstructive pulmonary disease, unspecified COPD type ([facility]) Tobacco use Tobacco use disorder Tracheal stenosis Other diseases of trachea and bronchus Gastroesophageal reflux disease, unspecified whether esophagitis present Pulmonary embolus with infarction ([facility]) Other pulmonary embolism and infarction Congestive heart failure, unspecified HF chronicity, unspecified heart failure type ([facility]) Stage 3 chronic kidney disease, unspecified whether stage 3a or 3b CKD ([facility]) Essential tremor Essential and other specified forms of tremor Essential tremor Essential and other specified forms of tremor documented in this encounter [facility] note* Diagnosis 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 Essential tremor Essential and other specified forms of tremor documented in this encounter [facility] note* Diagnosis Essential tremor- Primary Essential and other specified forms of tremor Essential tremor Essential and other specified forms of tremor documented in this encounter [facility] noteNo [employer] Other Evaluation note* Diagnosis Diabetic polyneuropathy associated with type 2 diabetes mellitus (HCC) [E11.42]- Primary Weakness Other malaise and fatigue Obesity, Class III, BMI 40-49.9 (morbid obesity) ([facility]) Morbid obesity documented in this encounter [facility] note* Diagnosis AMS (altered mental status)- Primary Altered mental status CHF (congestive heart failure) ([facility]) Congestive heart failure, unspecified Chronic kidney disease (CKD), stage III (moderate) ([facility]) Chronic kidney disease, Stage III (moderate) Diabetic neuropathy ([facility]) Type II or unspecified type diabetes mellitus with neurological manifestations, not stated as uncontrolled DM type 2 with diabetic peripheral neuropathy ([facility]) Type II or unspecified type diabetes mellitus with neurological manifestations, not stated as uncontrolled Dysphagia Dysphagia, unspecified GERD (gastroesophageal reflux disease) Esophageal reflux Lumbar degenerative disc disease Degeneration of lumbar or lumbosacral intervertebral disc S/P deep brain stimulator placement Sleep apnea, obstructive Obstructive sleep apnea (adult) (pediatric) Spondylarthrosis Spondylosis of unspecified site without mention of myelopathy Uncontrolled hypertension Unspecified essential hypertension Multiple falls Personal history of fall Essential tremor Essential and other specified forms of tremor Syncope and collapse Staring episodes Altered awareness, transient Transient alteration of awareness Generalized weakness Other malaise and fatigue Acute encephalopathy Encephalopathy, unspecified Neuropathy Mononeuritis of unspecified site documented in this encounter [facility] general Narrative - Reported* Type Description [...] Hospitalization History CELLULITUS Hospitalization History HEART FAILURE [employer] Other Summary Purpose Family History No Family [...] FoundDocuments on File Type Date Recorded Patient Motor And Generator Brush Maker Expl anation Advance Directive(s) Advance Directive(s) 01/05/2020 5:50 AM Advance Directive(s) 06/24/2019 10:59 AM Advance Directive(s) 06/24/2019 2:04 PM Advance Directive(s) 06/24/2019 2:00 PM Advance Directive(s) 06/18/2019 12:37 PM Advance Directive(s) 07/18/2016 2:43 PM Documents on File Type Date Recorded Patient Motor And Generator Brush Maker Expl anation Advance Directive(s) 06/24/2019 2:00 PM Latest Code Status on File Code Status Date Activated Date Inactivated Comments Full Code 03/16/2014 10:57 AM 03/18/2014 4:17 PM Code Status History Code Status Date Activated Date Inactivated Comments Full Code 03/15/2014 4:07 PM 03/16/2014 10:57 AM Latest Code Status on File Code Status Date Activated Date Inactivated Comments Full Code 11/29/2023 8:12 PM Code Status History Code Status Date Activated Date Inactivated Comments Full Code 03/16/2014 10:57 AM 03/18/2014 4:17 PM Full Code 03/15/2014 4:07 PM 03/16/2014 10:57 [...] section and content) DATE CREATED AUTHOR 06/01/2021 Fidencio Su[facility]rez [facility] DATE CREATED AUTHOR AUTHOR'S ORGANIZ ATION 10/30/2021 [facility] DATE CREATED AUTHOR AUTHOR'S ORGANIZ ATION 05/31/2022 [facility] DATE CREATED AUTHOR AUTHOR'S ORGANIZ ATION 03/14/2023 [facility] DATE CREATED AUTHOR AUTHOR'S ORGANIZ ATION 08/14/2023 [facility] DATE CREATED AUTHOR AUTHOR'S ORGANIZ ATION 10/19/2023 [facility] DATE CREATED AUTHOR AUTHOR'S ORGANIZ ATION 11/10/2023 [facility] DATE CREATED AUTHOR AUTHOR'S ORGANIZ ATION 12/05/2023 [facility] DATE CREATED AUTHOR AUTHOR'S ORGANIZ ATION 12/06/2023 [facility] DATE CREATED AUTHOR AUTHOR'S ORGANIZ ATION 12/14/2023 [facility] DATE CREATED AUTHOR AUTHOR'S ORGANIZ ATION 01/22/2024 [facility] DATE CREATED AUTHOR AUTHOR'S ORGANIZ ATION 01/28/2024 [facility] Source Comments (unrecognize d section and content) In the event this informatio n is protected by the Federal Confidentiality of Alcohol and Drug Abuse Patient Records regulations: The Federal rules restrict any use of the information to criminally investigate or prosecute any alcohol or drug abuse patient.[facility] the event this information is protected by the Federal Confidentiality of Alcohol and Drug Abuse Patient Records regulations: The Federal rules restrict any use of the information to criminally investigate or prosecute any alcohol or drug abuse patient.[facility] Center[facility] the event this information is protected by the Federal Confidentiality of Alcohol and Drug Abuse Patient Records regulations: The Federal rules restrict any use of the information to criminally investigate or prosecute any alcohol or drug abuse patient.[facility] Center[facility] the event this information is protected by the Federal Confidentiality of Alcohol and Drug Abuse Patient Records regulations: The Federal rules restrict any use of the information to criminally investigate or prosecute any alcohol or drug abuse patient.[facility] the event this information is protected by the Federal Confidentiality of Alcohol and Drug Abuse Patient Records regulations: The Federal rules restrict any use of the information to criminally investigate or prosecute any alcohol or drug abuse patient.[facility] Center[facility] the event this information is protected by the Federal Confidentiality of Alcohol and Drug Abuse Patient Records regulations: The Federal rules restrict any use of the information to criminally investigate or prosecute any alcohol or drug abuse patient.[facility] Center[facility] the event this information is protected by the Federal Confidentiality of Alcohol and Drug Abuse Patient Records regulations: The Federal rules restrict any use of the information to criminally investigate or prosecute any alcohol or drug abuse patient.[facility] Center[facility] the event this information is protected by the Federal Confidentiality of Alcohol and Drug Abuse Patient Records regulations: The Federal rules restrict any use of the information to criminally investigate or prosecute any alcohol or drug abuse patient.[facility] Center[facility] the event this information is protected by the Federal Confidentiality of Alcohol and Drug Abuse Patient Records regulations: The Federal rules restrict any use of the information to criminally investigate or prosecute any alcohol or drug abuse patient.[facility] Reason for Visit (unrecogniz ed section and content) Reason Comments DBS MARIA G message Reason Comments Pre-Op Visit Reason Comments Results Reason Comments DBS problem Reason Comments New Patient Consult Specialty Diagnoses / Procedures Referred By Contterrance t Referred To Contact Neurology Diagnoses Weakness Procedures CONSULT TO NEUROLOGY OFFICE/OUTPATIENT NEW HIGH MDM 60-74 MINUTES Shane Parham PA-C [address] [place] [address] Referral ID Status Reason Start Date Expiration Date V isits Requested Visits Authorized [id number] Closed PCP Requested Referral 09/19/2023 09/18/2024 1 1 Specialty Diagnoses / Procedures Referred By Contac t Referred To Contact Diagnoses Syncope and collapse Procedures Tilt table Diogenes Rodriguez MD [id number] [place] [address] Referral ID Status Reason Start Date Expiration Date V isits Requested Visits Authorized [id number] Authorized 11/04/2023 11/03/2024 1 1 Specialty Diagnoses / Procedures Referred By Contac t Referred To Contact Diagnoses AMS (altered mental status) Altered mental status altered mental status Stvz 1c Stepdown [address] [place] [address] [facility] [address] [place] [address] Referral ID Status Reason Start Date Expiration Date Visits Re quested Visits Authorized [id number] 1 1 Care Teams (unrecognized sec tion and content) Information Receptionist Relationship Specialty Start Date End Date Say Mccormick MD PCP - General Family Practice 07/15/16 Information Receptionist Relationship Specialty Start Date End Date Say Mccormick MD [address] [place] [address] PCP - General Family Practice 07/15/16 Saúl Lunsford MD [address] [place] [address] Cardiology 01/21/22 Information Receptionist Relationship Specialty Start Date End Date Say Mccormick MD [address] [place] [address] PCP - General Family Practice 07/15/16 Saúl Lunsford MD [address] [place] [address] Cardiology 01/21/22 Information Receptionist Relationship Specialty Start Date End Date Say Mccormick MD [address] [facility] [place] [address] PCP - General Family Practice 07/15/16 Saúl Lunsford MD [address] [place] [address] Cardiology 01/21/22 Information Receptionist Relationship Specialty Start Date End Date Say Mccormick MD [address] [facility] [place] [address] PCP - General Family Practice 07/15/16 [facility] [address] [place] [address] Cardiology 01/21/22 Information Receptionist Relationship Specialty Start Date End Date Say Mccormick MD PCP - General Family Medicine 07/15/16 [facility] [address] [place] [address] Cardiology 01/21/22 Information Receptionist Relationship Specialty Start Date End Date Say Mccormick MD PCP - General Family Medicine 07/15/16 [facility] [address] [place] [address] Cardiology 01/21/22 Information Receptionist Relationship Specialty Start Date End Date Say Mccormick MD PCP - General Family Medicine 07/15/16 Saúl Lunsford MD [address] [place] [address] Cardiology 01/21/22 Information Receptionist Relationship Specialty Start Date End Date Say Mccormick MD [address] [place] [address] PCP - General Family Medicine 08/11/18 Information Receptionist Relationship Specialty Start Date End Date Say Mccormick MD [address] [place] [address] PCP - General Family Medicine 08/11/18 Ordered Prescriptions (unrec ognized section and content) Prescription Sig Dispensed Refills Start Date End Da te rivastigmine (EXELON) 4.6 MG/24HR Place 1 patch onto the skin daily 30 patch 3 12/05/2023 cloNIDine (CATAPRES) 0.1 MG tablet Take 1 tablet by mouth 2 times daily 60 tablet 3 12/04/2023 DULoxetine (CYMBALTA) 20 MG extended release capsule Take 1 capsule by mouth daily 30 capsule 3 12/05/2023 Scheduled Active and Recently Administ ered Medications (unrecognized section and content) Medication Order 12/06/2023 12/07/2023 12/08/2023 atorvastatin (LIPITOR) tablet 40 mg 40 mg, Oral, DAILY, First dose on Fri11/30/23 at 2100, Until Discontinued 2003 (Given - Provider: Merissa Rice RN) 2012 (Given - Provider: Merissa Rice RN) 2099 (Due) cloNIDine (CATAPRES) tablet 0.2 mg 0.2 mg, Oral, 2 TIMES DAILY, First dose (after last modification) on Fri12/05/23 at 2100, Until Discontinued 805 (Given - Provider: Rachel Espana RN)2003 (Given - Provider: Merissa Rice RN) 932 (Given - Provider: Rachel Espana RN)2012 (Given - Provider: Merissa Rice RN) 904 (Given - Provider: Janneth Nelson RN)2100 (Due) DULoxetine (CYMBALTA) extended release capsule 20 mg 20 mg, Oral, DAILY, First dose on Fri12/03/23 at 1445, Until Discontinued, Do not crush or break. May add contents of capsule to apple juice or apple sauce, but not chocolate. 0806 (Given - Provider: Rachel Espana RN) 0934 (Given - Provider: Rachel Espana RN) 09 (Given - Provider: Janneth Nelson RN) insulin glargine (LANTUS) injection vial 2 Units 2 Units, SubCUTAneous, DAILY, First dose on Fri12/01/23 at 1330, Until Discontinued 08 (Given - Provider: Rachel Espana RN) 0934 (Given - Provider: Rachel Espana RN) 09 (Given - Provider: Janneth Nelson RN) insulin lispro (HUMALOG) injection vial 0-4 Units 0-4 Units, SubCUTAneous, 3 TIMES DAILY WITH MEALS, First dose on Fri11/30/23 at 1700, Until Discontinued, Corrective Low Dose Algorithm Glucose: Dose: 70-199 No Insulin 200-249 1 Unit 250-299 2 Units 300-349 3 Units Over 349 4 Units and notify physician 0744 (Not Given - Provider: Rachel Espana RN - Reason: Order parameters not met)1416 (Not Given - Provider: Rachel Espana RN - Reason: Order parameters not met)1700 (Not Given - Provider: Rachel Espana RN - Reason: Order parameters not met) 0922 (Not Given - Provider: Rachel Espana RN - Reason: Order parameters not met)1224 (Not Given - Provider: Rachel Espana RN - Reason: Order parameters not met)1827 (Not Given - Provider: Rachel Espana RN - Reason: Order parameters not met) 0900 (Not Given - Provider: Janneth Nelson RN - Reason: Order parameters not met - Comment: bs [phone] (Not Given - Provider: Janneth Nelson RN - Reason: Order parameters not met - Comment: bs [phone] (Given - Provider: Janneth Nelson RN) insulin lispro (HUMALOG) injection vial 0-4 Units 0-4 Units, SubCUTAneous, NIGHTLY, First dose on Fri24 at 2100, Until Discontinued, If continuous tube feedings/TPN/NPO, give correction dose based on result, no reduction in dose. If eating or bolus tube feeding: Corrective Bedtime Algorithm Glucose: Dose: 70-299 No Insulin 300-349 4 Units Over 349 4 Units and notify physician 2016 (Not Given - Provider: Merissa Rice RN - Reason: Order parameters not met - Comment: Blood sugar: 155) 2012 (Not Given - Provider: Merissa Rice RN - Reason: Order parameters not met - Comment: Blood sugar: 193) 1958 (Not Given - Provider: Nancy Mejia RN - Reason: Order parameters not met - Comment: 203) metFORMIN (GLUCOPHAGE) tablet 500 mg 500 mg, Oral, 2 TIMES DAILY WITH MEALS, First dose on 11/30/23 at 0800, Until Discontinued 0800 (Automatically Held)1700 (Automatically Held) 0800 (Automatically Held)1700 (Automatically Held) 0800 (Automatically Held)1700 (Automatically Held) montelukast (SINGULAIR) tablet 10 mg 10 mg, Oral, DAILY, First dose on 11/30/23 at 0900, Until Discontinued 0748 (Given - Provider: Rachel Espana RN) 0933 (Given - Provider: Rachel Espana RN) 0906 (Given - Provider: Janneth Nelson RN) NIFEdipine (PROCARDIA XL) extended release tablet 90 mg 90 mg, Oral, DAILY, First dose on 11/30/23 at 0900, Until Discontinued, Do not crush or break. 1054 (Given - Provider: Rachel Espana RN) 0950 (Given - Provider: Rachel Espana RN) 0905 (Given - Provider: Janneth Nelson RN) pantoprazole (PROTONIX) tablet 40 mg 40 mg, Oral, DAILY, First dose on 11/30/23 at 0900, Until Discontinued, Do not crush or break. 0806 (Given - Provider: Rachel Espana RN) 0934 (Given - Provider: Rachel Espana RN) 0906 (Given - Provider: Janneth Nelson RN) rivastigmine (EXELON) 4.6 MG/24HR 1 patch 1 patch, TransDERmal, Administer over 24 Hours, DAILY, First dose on Fri12/03/23 at 1445 0745 (Patch Removed - Provider: Rachel Espana RN)0748 (Patch Applied - Provider: Rachel Espana RN) 0924 (Patch Removed - Provider: Rachel Espana RN)0933 (Patch Applied - Provider: Rachel Espana RN) 0907 (Patch Removed - Provider: Janneth Nelson RN)0908 (Patch Applied - Provider: Janneth Nelson RN) sodium chloride flush 0.9 % injection 5-40 mL 5-40 mL, IntraVENous, EVERY 12 HOURS SCHEDULED (2 times per day), First dose on Fri11/29/23 at 2100, Until Discontinued, For Line Patency: Peripheral IV = 5 mL; Midline or Central Line = 10 mL/lumen. If following IV push medication, administer flush at same rate as the IV push. Flush volume is determined by type of infusion therapy being given. For non-viscous solutions use: Peripheral IV = 5 mL Midline or Central Line = 10 mL/lumen For viscous solutions (i.e. blood components, parenteral nutrition, contrast media, or after obtaining blood sample) use: Peripheral IV = 10 mL Midline or Central Line = 20 mL/lumen 0815 (Given - Provider: Rachel Espana RN)2009 (Given - Provider: Merissa Rice RN) 0942 (Given - Provider: Rachel Espana RN)2012 (Given - Provider: Merissa Rice, NABEEL) 0956 (Given - Provider: Janneth Nelson, NABEEL)2100 (Due) topiramate (TOPAMAX) tablet 100 mg 100 mg, Oral, 2 TIMES DAILY, First dose on Fri11/30/23 at 0230, Until Discontinued, It is not recommended to crush, break, or chew immediate release tablets due to bitter taste. 0748 (Given - Provider: Rachel Espana RN)2003 (Given - Provider: Merissa Rice RN) 0934 (Given - Provider: Rachel Espana RN)2012 (Given - Provider: Merissa Rice, NABEEL) 0906 (Given - Provider: Janneth Nelson RN)2100 (Due) valsartan (DIOVAN) tablet 160 mg 160 mg, Oral, DAILY, First dose (after last modification) on Fri12/01/23 at 0900, Until Discontinued, Substituted for Candesartan (ATACAND) 0748 (Given - Provider: Rachel Espana, NABEEL) 0933 (Given - Provider: Rachel Espana, NABEEL) 0906 (Given - Provider: Janneth Nelson, NABEEL) Vitamin D (CHOLECALCIFEROL) tablet 5,000 Units 5,000 Units, Oral, DAILY, First dose on 11/30/23 at 0900, Until Discontinued, Labeling may look different. 25 qgu=2754 Units. Please double check dosages. 0748 (Given - Provider: Rachel Espana RN) 0933 (Given - Provider: Rachel Espana, NABEEL) 0906 (Given - Provider: Janneth Nelson, NABEEL) warfarin (COUMADIN) tablet 10 mg (COMPLETED) 10 mg, Oral, ONCE Warfarin, 1 dose, On 12/06/23 at 1800, Indication of Use: History of DVT/PE (indefinite), What is the patient's goal INR? 2.0 - 3.0, Review INR prior to administration. Hazardous med- See facility policy for handling/disposal 7094 (Given - Provider: Rachel Espana RN) warfarin placeholder: dosing by pharmacy Please contact the pharmacy if a dose is not entered by 1600. Review INR prior to warfarin administration. PRN Medication Order 12/06/2023 12/07/2023 12/08/2023 0.9 % sodium chloride infusion IntraVENous, at 5-250 mL/hr, PRN, if patient receiving piggyback infusions and maintenance fluids are not ordered OR KVO fluids to protect IV site / prevent frequent line interruptions/ long duration, Starting on 11/29/23 at 2011, For piggyback infusion, administer at same rate as piggyback for a total of 25 mL. Enter 25 mL into dose field and piggyback rate into rate field of order. If piggyback is infusing at a rate less than 100 mL/hr, enter 25 mL into dose field and 100 mL/hr into rate field of order. For KVO fluids, enter rate of 20 mL/hr or less into rate field of order. acetaminophen (TYLENOL) suppository 650 mg(Linked Group 1) 650 mg, Rectal, EVERY 6 HOURS PRN, Starting on 11/29/23 at 2011, Until Discontinued, Pain Mild (1-3), Fever, For temp greater than 100.4 F (38 C), Administer if oral route cannot be used. acetaminophen (TYLENOL) tablet 650 mg(Linked Group 1) 650 mg, Oral, EVERY 6 HOURS PRN, Starting on Fri11/29/23 at 2011, Until Discontinued, Pain Mild (1-3), Fever, For temp greater than 100.4 F (38 C), Maximum dose of acetaminophen is 4000 mg from all sources in 24 hours. cyclobenzaprine (FLEXERIL) tablet 10 mg 10 mg, Oral, 3 TIMES DAILY PRN, Starting on Fri12/03/23 at 1202, Until Discontinued, Muscle spasms 0518 (Given - Provider: Merissa Rice, NABEEL) 0538 (Given - Provider: Merissa Rice, RN)2012 (Given - Provider: Merissa Rice, NABEEL) 0535 (Given - Provider: Merissa Rice, RN)1456 (Given - Provider: Janneth Nelson RN) dextrose 10 % infusion IntraVENous, at 100 mL/hr, CONTINUOUS PRN, if blood glucose remains LESS THAN 70 mg/dL after 2 dextrose 10% intravenous boluses or administration of glucagon, Starting on 11/30/23 at 1348, If blood glucose fails to stabilize after 2 dextrose 10% intravenous boluses or glucagon administration, start dextrose 10% infusion at 100 mL/hour and repeat blood glucose at 30 and 60 minutes. If blood glucose is GREATER THAN 70 mg/dL after 60 minutes, discontinue dextrose 10% infusion. dextrose bolus 10% 125 mL(Linked Group 2) 125 mL, IntraVENous, at 937.5 mL/hr, Administer over 8 Minutes, PRN, Other, Blood glucose 40 - 69 mg/dL and patient NOT ALERT or NPO, Starting on 11/30/23 at 1348, Repeat blood glucose in 15 minutes. If blood glucose remains LESS THAN 70 mg/dL, repeat treatment and recheck blood glucose in 15 minutes x 2. If using glycemic management system, dose as instructed per system. If blood glucose remains LESS THAN 70 mg/dL after 2 intravenous boluses start dextrose 10% at 100 mL/hour and notify provider. dextrose bolus 10% 250 mL(Linked Group 2) 250 mL, IntraVENous, at 937.5 mL/hr, Administer over 16 Minutes, PRN, Other, Blood glucose LESS THAN 40 mg/dL and patient NOT ALERT or NPO, Starting on 11/30/23 at 1348, Repeat blood glucose in 15 minutes. If blood glucose remains LESS THAN 70 mg/dL, repeat treatment and recheck blood glucose in 15 minutes x 2. If using glycemic management system, dose as instructed per system. If blood glucose remains LESS THAN 70 mg/dL after 2 intravenous boluses start dextrose 10% at 100 mL/hour and notify provider. glucagon (rDNA) injection 1 mg 1 mg, SubCUTAneous, PRN, Starting on 11/30/23 at 1348, Until Discontinued, Low blood sugar, Blood glucose LESS THAN 70 mg/dL and patient NOT ALERT or NPO and does not have IV access., After administration, attempt intravenous access and start dextrose 10% at 100 mL/hr. Repeat blood glucose in 15 minutes x 2 and notify provider. glucose chewable tablet 16 g 16 g (4 tablet), Oral, PRN, Starting on 11/30/23 at 1348, Until Discontinued, Low blood sugar, If blood glucose is LESS THAN 70 mg/dL and patient is alert and tolerating oral. Give 4 tablets (16g) Repeat blood glucose in 15 minutes. If blood glucose is LESS THAN 70 mg/dL, repeat treatment and recheck blood glucose in 15 minutes x 2. If blood glucose remains LESS THAN 70 mg/dL, notify provider. labetalol (NORMODYNE;TRANDATE) injection 10 mg 10 mg, IntraVENous, EVERY 6 HOURS PRN, Starting on 11/30/23 at 0939, Until Discontinued, High Blood Pressure, SBP > 160 magnesium sulfate 2000 mg in 50 mL IVPB premix 2,000 mg, IntraVENous, at 25 mL/hr, Administer over 2 Hours, PRN, Other, Magnesium Replacement, Starting on 11/29/23 at 2012, Mag Lab Replacement Action 1.4-1.6 mg/dL 2,000 mg Total Dose Given as 1,000 mg IVPB x 2 doses or 2,000 mg IVPB x 1 dose 1.0-1.3 mg/dL 4,000 mg Total Dose Given as 1,000 mg IVPB x 4 doses or 2,000 mg IVPB x 2 doses Less than 1.0 mg/dL CALL PHYSICIAN and give 4,000 mg Total Dose Given as 1,000 mg IVPB x 4 doses or 2,000 mg IVPB x 2 doses Infuse at 1,000 mg/hr Repeat Mag level next AM Protocol not for use in Patients with CrCl less than 30ml/min morphine (PF) injection 2 mg (CANCELED) 2 mg, IntraVENous, EVERY 4 HOURS PRN, Starting on 11/30/23 at 1446, Until 12/07/23 at 0943, Pain Severe (7-10), If oral and IV narcotics ordered, use oral first and only use IV if oral is ineffective or cannot take oral. Do Not give oral and IV within 1 hour of each other unless specifically ordered. 0242 (Given - Provider: Merissa Rice RN)0648 (Given - Provider: Merissa Rice RN)1109 (Given - Provider: Rachel Espana RN)1544 (Given - Provider: Rachel Espana RN)2004 (Given - Provider: Merissa Rice RN) 0032 (Given - Provider: Merissa Rice RN)0443 (Given - Provider: Merissa Rice RN)0934 (Given - Provider: Rachel Espana RN) morphine (PF) injection 2 mg (CANCELED) 2 mg, IntraVENous, EVERY 8 HOURS PRN, Starting on 12/07/23 at 0945, Until 12/07/23 at 2028, Pain Severe (7-10), If oral and IV narcotics ordered, use oral first and only use IV if oral is ineffective or cannot take oral. Do Not give oral and IV within 1 hour of each other unless specifically ordered. 1823 (Given - Provider: Rachel Espana RN) morphine (PF) injection 2 mg 2 mg, IntraVENous, EVERY 6 HOURS PRN, Starting on 12/07/23 at 2030, Until Discontinued, Pain Severe (7-10), If oral and IV narcotics ordered, use oral first and only use IV if oral is ineffective or cannot take oral. Do Not give oral and IV within 1 hour of each other unless specifically ordered. 0035 (Given - Provider: Merissa Rice RN)0659 (Given - Provider: Merissa Rice RN)1310 (Given - Provider: Janneth Nelson RN)1917 (Given - Provider: Janneth Nelson RN) ondansetron (ZOFRAN) injection 4 mg(Linked Group 3) 4 mg, IntraVENous, EVERY 6 HOURS PRN, Starting on 11/29/23 at 2011, Until Discontinued, Nausea, Vomiting, Administer if oral route cannot be used. ondansetron (ZOFRAN-ODT) disintegrating tablet 4 mg(Linked Group 3) 4 mg, Oral, EVERY 8 HOURS PRN, Starting on 11/29/23 at 2011, Until Discontinued, Nausea, Vomiting polyethylene glycol (GLYCOLAX) packet 17 g 17 g, Oral, DAILY PRN, Starting on 11/29/23 at 2011, Until Discontinued, Constipation, First line therapy for constipation 0934 (Given - Provider: Rachel Espana RN) potassium bicarb-citric acid (EFFER-K) effervescent tablet 40 mEq(Linked Group 4) 40 mEq, Oral, PRN, Starting on 11/29/23 at 2011, Until Discontinued, Per Potassium Replacement Protocol, Administer as alternative if patient unable to tolerate oral tablet. K Lab Replacement Action 3.1 to 3.5 40 mEq ORAL x 1 Under 3.1 Refer to IV replacement protocol Recheck K level in AM. Protocol not for use in patients with CrCl less than 30 mL/min. Do not chew or crush. Dissolve flavored tablets completely in 3 to 4 ounces of cold water; unflavored tablets may be dissolved in 3 to 4 ounces of cold juice. Patient to sip slowly over a 5 to 10 minute period. May further dilute if GI adverse effects occur. potassium chloride (KLOR-CON M) extended release tablet 40 mEq(Linked Group 4) 40 mEq, Oral, PRN, Starting on 11/29/23 at 2011, Until Discontinued, Potassium Replacement, May give alternative linked oral order (ordered as effervescent, packet, or liquid solution) if patient unable to tolerate tablet. K Lab Replacement Action 3.1 to 3.5 40 mEq ORAL x 1 Under 3.1 Refer to IV replacement protocol Recheck K level in AM. Protocol not for use in patients with CrCl less than 30 mL/min. Do not crush, chew, or suck on tablet. Tablet may also be broken in half and each half swallowed separately. potassium chloride 10 mEq/100 mL IVPB (Peripheral Line)(Linked Group 4) 10 mEq, IntraVENous, PRN, Starting on 11/29/23 at 2011, Until Discontinued, at 100 mL/hr, Potassium Replacement, K Lab Replacement Action 2.7 to 3.0 10 mEq IVPB x 6 doses (60 mEq Total) Under 2.7 CALL PROVIDER and administer 10 mEq IVPB x 6 doses (60 mEq Total) Infuse at 10 mEq/hr. Repeat Potassium lab 1 hour after final administration. Protocol not for use in patients with CrCl less than 30 mL/min. sodium chloride flush 0.9 % injection 5-40 mL 5-40 mL, IntraVENous, PRN, Starting on 11/29/23 at 2011, Until Discontinued, Line Care, After every IV line use, For Line Patency: Peripheral IV = 5 mL; Midline or Central Line = 10 mL/lumen. If following IV push medication, administer flush at same rate as the IV push. Flush volume is determined by type of infusion therapy being given. For non-viscous solutions use: Peripheral IV = 5 mL Midline or Central Line = 10 mL/lumen For viscous solutions (i.e. blood components, parenteral nutrition, contrast media, or after obtaining blood sample) use: Peripheral IV = 10 mL Midline or Central Line = 20 mL/lumen Linked Groups Order Group 1: acetaminophen (TYLENOL) tablet 650 mgJump to med 650 mg, Oral, EVERY 6 HOURS PRN, Starting on 11/29/23 at 2011, Until Discontinued, Pain Mild (1-3), Fever, For temp greater than 100.4 F (38 C)
Maximum dose of acetaminophen is 4000 mg from all sources in 24 hours.
Or acetaminophen (TYLENOL) suppository 650 mgJump to med 650 mg, Rectal, EVERY 6 HOURS PRN, Starting on 11/29/23 at 2011, Until Discontinued, Pain Mild (1-3), Fever, For temp greater than 100.4 F (38 C)
Administer if oral route cannot be used.
Group 2: dextrose bolus 10% 125 mLJump to med 125 mL, IntraVENous, at 937.5 mL/hr, Administer over 8 Minutes, PRN, Other, Blood glucose 40 - 69 mg/dL and patient NOT ALERT or NPO, Starting on 11/30/23 at 1348
Repeat blood glucose in 15 minutes. If blood glucose remains LESS THAN 70 mg/dL, repeat treatment and recheck blood glucose in 15 minutes x 2. If using glycemic management system, dose as instructed per system. If blood glucose remains LESS THAN 70 mg/dL after 2 intravenous boluses start dextrose 10% at 100 mL/hour and notify provider.
Or dextrose bolus 10% 250 mLJump to med 250 mL, IntraVENous, at 937.5 mL/hr, Administer over 16 Minutes, PRN, Other, Blood glucose LESS THAN 40 mg/dL and patient NOT ALERT or NPO, Starting on 11/30/23 at 1348
Repeat blood glucose in 15 minutes. If blood glucose remains LESS THAN 70 mg/dL, repeat treatment and recheck blood glucose in 15 minutes x 2. If using glycemic management system, dose as instructed per system. If blood glucose remains LESS THAN 70 mg/dL after 2 intravenous boluses start dextrose 10% at 100 mL/hour and notify provider.
Group 3: ondansetron (ZOFRAN-ODT) disintegrating tablet 4 mgJump to med 4 mg, Oral, EVERY 8 HOURS PRN, Starting on 11/29/23 at 2011, Until Discontinued, Nausea, Vomiting Or ondansetron (ZOFRAN) injection 4 mgJump to med 4 mg, IntraVENous, EVERY 6 HOURS PRN, Starting on 11/29/23 at 2011, Until Discontinued, Nausea, Vomiting
Administer if oral route cannot be used.
Group 4: potassium chloride (KLOR-CON M) extended release tablet 40 mEqJump to med 40 mEq, Oral, PRN, Starting on 11/29/23 at 2011, Until Discontinued, Potassium Replacement
May give alternative linked oral order (ordered as effervescent, packet, or liquid solution) if patient unable to tolerate tablet. K Lab Repla cemen t Action 3.1 to 3.5 40 mEq ORAL x 1 Under 3.1 Refer to IV replacement protocol Recheck K level in AM. Protocol not for use in patients with CrCl less than 30 mL/min. Do not crush, chew, or suck on tablet. Tablet may also be broken in half and each half swallowed separately.
Or potassium bicarb-citric acid (EFFER-K) effervescent tablet 40 mEqJump to med 40 mEq, Oral, PRN, Starting on 11/29/23 at 2011, Until Discontinued, Per Potassium Replacement Protocol
Administer as alternative if patient unable to tolerate oral tablet. K Lab Repla cemen t Action 3.1 to 3.5 40 mEq ORAL x 1 Under 3.1 Refer to IV replacement protocol Recheck K level in AM. Protocol not for use in patients with CrCl less than 30 mL/min. Do not chew or crush. Dissolve flavored tablets completely in 3 to 4 ounces of cold water; unflavored tablets may be dissolved in 3 to 4 ounces of cold juice. Patient to sip slowly over a 5 to 10 minute period. May further dilute if GI adverse effects occur.
Or potassium chloride 10 mEq/100 mL IVPB (Peripheral Line)Jump to med 10 mEq, IntraVENous, PRN, Starting on 11/29/23 at 2011, Until Discontinued, at 100 mL/hr, Potassium Replacement
K Lab Replacement Action 2.7 to 3.0 10 mEq IVPB x 6 doses (60 mEq Total) Under 2.7 CALL PROVIDER and administer 10 mEq IVPB x 6 doses (60 mEq Total) Infuse at 10 mEq/hr. Repeat Potassium lab 1 hour after final administration. Protocol not for use in patients with CrCl less than 30 mL/min.
FOR RECORDS PERTAINING TO PATIENTS WHO ARE [...] BE BASED ON THE PRIMARY CLINICAL RECORDS. [facility]. provides no warranty or guarantee of the accuracy or completeness of information in this document.
== END 2024-02-23 07:48 | disposition home or self-care (01) ==
LOC: US 07:47
PROVIDERS: PCP Family Medicine; Visit Provider Family Medicine
DX: I82.5Y3 Chronic embolism and thrombosis of unspecified deep veins of proximal lower extremity, bilateral (principal)
CPT/HCPCS: 93970

== ENCOUNTER 2024-02-24 11:44 | Outpatient (OUT) | payer MEDICAID, SELFPAY ==
--- NOTE | 2024-02-24 | CT_ITS ---
[address] [address] Patient Name: ANDRY PIERRE MRN: [id number] date: 1960 Sex: M Assigned Patient Location: CT Current Patient Location: Accession/Order Number: [id number] Exam Date: 02/24/2024 12:17 Report Date: 02/25/2024 06:43 At the request of: LUIS MCCORMICK Procedure: CT chest wo con EXAMINATION: CT chest wo con HISTORY: Aluminosis Of Lung J63.0 COMPARISON: CT chest 11/13/2023 TECHNIQUE: Multi-planar CT images were obtained without and/or with IV contrast as indicated by examination type. Axial, Coronal, and Sagittal images. Dose reduction techniques were achieved by using automated exposure control and/or adjustment of mA and/or kV according to patient size and/or use of iterative reconstruction technique. FINDINGS: LUNGS: Numerous small faint patchy opacities within the basilar segments of right lower lobe. Scattered tiny calcified and noncalcified nodules bilaterally. PLEURA: No mass, effusion, or pneumothorax. VASCULATURE: No abnormality. VINNIE: Calcified right hilar lymph nodes. MEDIASTINUM: No mass or adenopathy. CARDIAC: No enlargement, pericardial thickening, or significant calcification. Coronary artery calcifications: AORTA: No aneurysm or dissection. CHEST WALL: Anterior left chest wall loop recorder. No mass or axillary adenopathy. BONES: No bone lesion or fracture. LIMITED ABDOMEN: No suspicious findings Limited images of the upper abdomen. OTHER: Negative. CT/CT chest wo con IMPRESSION: 1. Numerous tiny faint opacities within right lower lobe which are new since prior study, while previously seen opacities have resolved, suggesting atelectasis or acute infectious infiltrates. 2. Numerous tiny calcified and noncalcified nodules scattered within the lungs, calcified right hilar lymph nodes. Findings favor chronic granulomatous disease. Electronically authenticated by: ROCK AVELAR Date: 02/25/2024 06:43
== END 2024-02-24 11:45 | disposition home or self-care (01) ==
LOC: CT 11:44
PROVIDERS: PCP Family Medicine; Visit Provider Family Medicine
DX: J63 Pneumoconiosis due to other inorganic dusts (principal); R91.8 Other nonspecific abnormal finding of lung field
CPT/HCPCS: 71250

== ENCOUNTER 2024-03-08 00:28 | Outpatient (RCR) | payer MEDICARE, SELFPAY | END 2024-04-02 10:47 | disposition home or self-care (01) | LOC: MM 00:28 | PROVIDERS: PCP Family Medicine; Visit Provider Internal Medicine | DX: Z51.81 Encounter for therapeutic drug level monitoring (principal); Z79.01 Long term (current) use of anticoagulants; I82.409 Acute embolism and thrombosis of unspecified deep veins of unspecified lower extremity ==

== ENCOUNTER 2024-03-22 20:36 | Emergency (ER) | payer MEDICARE, SELFPAY ==
[2024-03-22 20:46] VITALS: BP 193/107; PULSE 67; TEMP 37.7; O2SAT 97
--- OUTSIDE RECORDS SUMMARY | 2024-03-22 20:51 | XMS_ITS | CCD ---
Author Organization [facility] Care Team Providers Care Drop Press Hand Name Role Phone Say Mccormick MD Primary Care Provider [phone] Say Mccormick MD Primary Care Provider [phone] Jonn GEORGE, Ehab Ahmed Unavailable ThuandavidSanjay Unavailable JESUS RUSS Attending Unavailable JESUS RUSS Admitting Unavailable SELF, REFERRED Referring Unavailable SAY MCCORMICK Primary Care Unavailable AMY REMY Surgeon Unavailable [place] Procedure Practitioner Unavailab le NV Procedure Practitioner Unavailab DAVON Rivera Surgeon Unavailable DR SAY REECE Admitting Unavailable DR SAY REECE Primary Care Unavailable DR SAY REECE Consulting Unavailable DR SAY REECE Attending Unavailable VALENTINO, DR ROCK Das Consulting Unavailable PRANAV VASQUEZ Attending Unavailable PRANAV VASQUEZ Admitting Unavailable DR SAY REECE Primary Care Unavailable PRANAV VASQUEZ Consulting Unavailable SHAIKH Brenda DEWEY Attending Unavailable JODIE HURST Primary Care Unavailable SHAIKH DEWEY H Admitting Unavailable SOFYA HIDALGO Attending Unavailable SOFYA HIDALGO Admitting Unavailable DR SAY REECE Primary Care Unavailable ALISA HOLMAN Consulting Unavailable SOFYA HIDALGO Consulting Unavailable LOS BAIRES Consulting Unavailable HOWIE HIDALGOA Admitting Unavailable DR SAY REECE Primary Care Unavailable VALENTINO, DR ROCK Das Consulting Unavailable SOFYA HIDALGO Attending Unavailable SOFYA [...] Unavailable Say Mccormick MD Primary Care Provider [phone] Jonn GEORGE, Saúl Kovacs Unavailable Marlena GEORGE, Ramon Morales Attending Unavailable HOY, SYA M Primary Care Unavailable HOY, SAY M Referring Unavailable HOY, SAY M Primary Care Unavailable HOY, SAY M Referring Unavailable HOY, SAY M Primary Care Unavailable HOY, SAY M Referring Unavailable HOY, SAY M Primary Care Unavailable HOY, SAY M Primary Care Unavailable HENNIGS, SHANE L Referring Unavailable HOY, SAY M Primary Care Unavailable OBED FLORIAN Attending Unavailable HENNISANDI, SHANE L Referring Unavailable HOY, SAY M Primary Care Unavailable HENNIGS, SHANE L Referring Unavailable HOY, SAY M Primary Care Unavailable HEENA, SHANE L Attending Unavailable Say Mccormick MD Primary Care Provider [phone] YUDITH MARTINEZ Referring Unavailable HOY, SAY M Primary Care Unavailable DIOGENES RODRIGUEZ Referring Unavailable HOY, SAY M Primary Care Unavailable HOY, SAY M Primary Care Unavailable CHARLEE ARCE Referring Unavailable HOY, SAY M Primary Care Unavailable SEVERIANO MORENO Consulting Unavailable JACKIE RIVAS Admitting Unavailable LORI LEBLANC Attending Unavailable CHARO SLAUGHTER Consulting Unavailable MARLON BARLOW Consulting Unavailable JEFFERY CHRISTINE Consulting Unavailable DEEPA DOYLE Referring Unavailable DIOGENES RODRIGUEZ Referring Unavailable TIFFANIE LEIGH Referring Unavailable SOFYA HIDALGO Attending Unavailable SOFYA HIDALGO Attending Unavailable SURI BANDA Attending Unavailable SURI BANDA Attending Unavailable DIOGENES RODRIGUEZ Attending Unavailable YANCY CERVANTES Attending Unavailab le JULIANY, SAY M Referring Unavailable YANCY CERVANTES Referring Unavailab YANCY Dimas Referring Unavailab ARJUN Palumbo Attending Unavailable YANCY CERVANTES Attending Unavailab le Allergies Allergy Classification Reported Allergen(s) Allergy Type Date of Onset Reaction(s) Facility (9 sources) beta-Blocking agent; Translations: [BETA-BLOCKERS (BETA-ADRENERGIC BLOCKING AGTS)] Drug Allergy 07-24-20 11 Itching, Other: See Comments [facility] (15 sources) diazePAM; Translations: [DIAZEPAM] Drug Allergy 03-03-20 08 Unknown [facility] (17 sources) gabapentin; Translations: [GABAPENTIN] Drug Allergy 11-25-19 09 Other: See Comments, Unknown [facility] (14 sources) hydrALAZINE; Translations: [HYDRALAZINE] Drug Allergy 05-19-20 13 Unknown [facility] (3 sources) Adrenergic Beta-Antagonists Drug allergy Unknown [facility] Other (2 sources) Adrenergic Beta-Antagonists Drug allergy (disorder) 05-29-20 16 [facility] (4 sources) diazePAM Drug Allergy 05-19-20 13 [facility] (1 source) gabapentin Drug Allergy 01-23-20 19 [facility] (1 source) gabapentin Drug Allergy 05-29-20 16 [facility] (5 sources) beta-Blocking agent Drug Allergy 07-24-20 11 Itching, Other: See Comments [facility] (2 sources) Neuromuscular Blocking Agents Propensity to adverse reactions to drug 05-19-20 13 New Body MD NEGATED: Highlighted row has been ruled out! (2 sources) Other Propensity to adverse reactions 07-29-20 13 Nausea And Vomiting New Body MD Medications Current Medications Medication Drug Class(es) Dates Sig (Normalized) Sig (Original) Acetaminophen (1 source) Start: 11-29-2023 acetaminophen (TYLENOL) tablet 650 mg amLODIPine 5 mg oral tablet (2 sources) Dihydropyridine Calcium Channel Noah End: 01-21-2022 take 1 tablet by mouth [...] oral tablet (14 sources) Angiotensin 2 Receptor Noah take 1 tablet by mouth once daily [...] 5 mg/ml injectable solution (1 source) beta-Adrenergic Noah Start: 11-30-2023 labetalol (NORMODYNE;TRANDAT E) injection 10 [...] Other, Magnesium Replacement, Starting on 11/29/23 at 2011 [facility] Replacement Action 1.4-1. 6 mg/dL & [...] oral tablet (3 sources) Angiotensin 2 Receptor Noah Start: 12-01-2023 valsartan (DIOVAN) tablet 160 mg [...] 0 Active take 2 tablets by mo ut [...] Start: 01-30-2022 take 1 tablet by kristen th every eight hours as needed for pain [...] (15 sources) HMG-CoA Reductase Inhibitor Start: 11-08-19 take 1 tablet by mouth once daily atorvastatin (LIPITOR) 10 mg tablet Take 1 tablet by mouth once daily. 90 tablet 1 11/08/2019 Active Start: 09-26-2015 take 40 mg by mouth once daily 40 mg, Oral, DAILY, First dose on 11/30/23 at 2100, Until Discontinued Comment on above: [facility] carbidopa 10 mg / levodopa [...] on above: Take 1 capsule by mo [facility] four times daily. cetirizine hydrochloride 10 mg oral tablet (6 sources) Histamine-1 Receptor Antagonist Start: 04-01-20 take [...] above: Take 1 tablet by kristen every afternoon. furosemide 40 mg oral tablet [...] (LIST CLEANUP) take 1 capsule by mo [facility] three times daily for pain indomethacin (INDOCIN) 50 mg capsule indomethacin 50 mg capsule take 1 capsule by mouth three times a day if needed for pain 0 Active Comment on above: indomethacin 50 mg c apsule take 1 capsule by mouth three times a day if needed for pain TAKE 1 CAPSULE BY MO [facility] THREE TIMES A DAY NEEDED FOR PAIN [...] Comment on above: Take [facility] tablet [facility] two times a day. montelukast 10 mg oral tablet (15 sources) Leukotriene Receptor Antagonist Start: 11-24-19 take 10 mg by mouth once daily 10 mg, Oral, DAILY, First dose on 11/30/23 at 0900, Until Discontinued Comment on above: Take 10 mg by mouth daily at bedtime. NIFEdipine 90 mg osmotic 24 hr extended release oral tablet (15 sources) Dihydropyridine Calcium Channel Noah Start: 01-14-20 take 90 mg by mouth once daily 90 mg, Oral, DAILY, First dose on 11/30/23 at 0900, Until Discontinued Do not crush or break. take 1 tablet by kristen every twenty-four hours NIFEdipine ER 90 MG [...] by mouth once daily. polyethylene glycol 3350 15241 mg powder for oral solution (1 source) Osmotic Laxative Start: 11-29-19 24 17 g, Oral, DAILY PRN, Starting on 11/29/23 at 2011, Until Discontinued, Constipation First line therapy for [...] Start: 08-15-2015 take 2 tablets by mo [facility] twice daily, then take 2 tablets by [...] [UNSPECIFIED ABDOMINAL PAIN] Onset: 3 Episodic Acute and unspecified renal failure (4 sources) Acute renal failure syndrome; Translations: [Acute kidney failure, unspecified] Onset: 4 Episodic Acute cerebrovascular disease (3 sources) Stroke [...] Onset: 3 Episodic Other aftercare (1 source) 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) use of anticoagulants; Translations: [CARE HOME CURRNT USE ANTICOAGULANTS] Onset: 3 Episodic Other aftercare (1 source) 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) use of insulin; Translations: [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) use of insulin] Onset: 4 Episodic [...] Problem Classification Problem Date Documented Date Episodic/Chronic Fluid and electrolyte disorders (11 sources) Hypervolemia; [...] Value Interpretation Reference Range Facility Office Visiton 01-29-2024 Follow-up visit [id number] Joanie Pierre 1960 Date Provider Department Center 01/29/2024 SOFYA MUNIZ Family History Problem Relation Age of Onset Coronary artery disease Mother Coronary artery disease Father Family Status - Relation Status Age at Mother Father Level of Service:71632 [place] OFFICE/OUTPATIENT ESTABLISHED MOD MDM 30 MIN Normal [facility] Office Visiton 01-13-2024 Follow-up visit [id number] Joanie Pierre 1960 Date Provider Department Center 01/13/2024 SOFYA MUNIZ Family History Problem Relation Age of Onset Coronary artery disease Mother Coronary artery disease Father Family Status - Relation Status Age at Mother Father Level of Service:60091 [place] OFFICE/OUTPATIENT ESTABLISHED MOD MDM 30 MIN Normal [facility] Glucose,Whole Bloodon 2023 Glucose [Mass/Vol] 203 mg/dL High 75-110 [facility] Glucose [Mass/Vol] 206 mg/dL High 75-110 [facility] Glucose [Mass/Vol] 167 mg/dL High 75-110 [facility] Glucose [Mass/Vol] 137 mg/dL High 75-110 [facility] POC Glucose Fingerstickon Glucose [Mass/Vol] 203 mg/dL High 75 - 110 mg/dL [facility] Interpretation and review of laboratory results Abnormal [facility] Glucose [Mass/Vol] 206 mg/dL High 75 - 110 mg/dL [facility] Interpretation and review of laboratory results Abnormal [facility] Glucose [Mass/Vol] 167 mg/dL High 75 - 110 mg/dL [facility] Interpretation and review of laboratory results Abnormal [facility] Glucose [Mass/Vol] 137 mg/dL High 75 - 110 mg/dL [facility] Interpretation and review of laboratory results Abnormal [facility] PTon 12-08-2023 INR Coag (PPP) [Relative time] 3.3 {INR} Normal [facility] Comment on above: Result Comment: Therapeutic Range: Moderate Anticoagulant Intensity: INR = 2.0-3.0 High Anticoagulant Intensity: INR = 2.5-3.5 Performed By: #### P T #### [facility] [address] [place], [place] [id number] Septic Tank Servicer: Jasbir Montalvo MD PT Coag (PPP) [Time] 32.3 s High 11.7-14.9 [facility] Comment on above: Performed By: #### P T #### [employer] [address] [place], [place] [id number] Septic Tank Servicer: Jasbir Montalvo MD Protime-INRon 12-08-2023 INR Coag (PPP) [Relative time] 3.3 {INR} [facility] Comment on above: Therapeutic Range: Moderate Anticoagulant Intensity: INR = 2.0-3.0 High Anticoagulant Intensity: INR = 2.5-3.5 Interpretation and review of laboratory results Abnormal [facility] PT Coag (PPP) [Time] 32.3 s High [facility] Glucose,Whole Bloodon 2023 Glucose [Mass/Vol] 193 mg/dL High 75-110 [facility] Glucose [Mass/Vol] 154 mg/dL High 75-110 [facility] Glucose [Mass/Vol] 145 mg/dL High 75-110 [facility] Glucose [Mass/Vol] 132 mg/dL High 75-110 [facility] Hemoglobin and Hematocriton 12-07-2023 Hematocrit (Bld) [Volume fraction] 44.1 % 40.7 - 50.3 % [facility] Hemoglobin (Bld) [Mass/Vol] 14.0 g/dL 13.0 - 17.0 g/dL [facility] Hgb/Hcton 12-07-2023 Hematocrit (Bld) [Volume fraction] 44.1 % Normal 40.7-50.3 [facility] Comment on above: Performed By: #### P HO, CDP, RA, PT, SED, BMPX, FREDA, MG, LD, CRP, FEBC, B12FOL, PTT, C4, CCPAB, FERI, IOCAL, CORTI, CK, C3, REJEC #### [facility] [employer] [address] [place] [id number] [employer] Servicer: Jasbir Montalvo MD Hemoglobin (Bld) [Mass/Vol] 14.0 g/dL Normal 13.0-17.0 [facility] Comment on above: Performed By: #### P HO, CDP, RA, PT, SED, BMPX, FREDA, MG, LD, CRP, FEBC, B12FOL, PTT, C4, CCPAB, FERI, IOCAL, CORTI, CK, C3, REJEC #### [facility] [employer] [address] [place] [phone] [employer] Servicer: Jasbir Montalvo MD No Panel Informationon 12-06 [facility] [employer] POC Glucose Fingerstickon Glucose [Mass/Vol] 193 mg/dL High 75 - 110 mg/dL [facility] Interpretation and review of laboratory results Abnormal [facility] Glucose [Mass/Vol] 154 mg/dL High 75 - 110 mg/dL [facility] Interpretation and review of laboratory results Abnormal [facility] Glucose [Mass/Vol] 145 mg/dL High 75 - 110 mg/dL [facility] Interpretation and review of laboratory results Abnormal [facility] Glucose [Mass/Vol] 132 mg/dL High 75 - 110 mg/dL [facility] Interpretation and review of laboratory results Abnormal [facility] PTon 12-07-2023 INR Coag (PPP) [Relative time] 3.2 {INR} Normal [facility] Comment on above: Result Comment: Therapeutic Range: Moderate Anticoagulant Intensity: INR = 2.0-3.0 High Anticoagulant Intensity: INR = 2.5-3.5 Performed By: #### P HO, CDP, RA, PT, SED, BMPX, FREDA, MG, LD, CRP, FEBC, B12FOL, PTT, C4, CCPAB, FERI, IOCAL, CORTI, CK, C3, REJEC #### [employer] [address] [place] [phone] Sept[employer] Servicer: Jasbir Montalvo MD PT Coag (PPP) [Time] 32.1 s High 11.7-14.9 [facility] Comment on above: Performed By: #### P HO, CDP, RA, PT, SED, BMPX, FREDA, MG, LD, CRP, FEBC, B12FOL, PTT, C4, CCPAB, FERI, IOCAL, CORTI, CK, C3, REJEC #### [employer] [address] [place] [address] [phone] Sept[employer] Servicer: Jasbir Montalvo MD Platelet Counton 12-07-2023 Platelets (Bld) [#/Vol] 252 10*3/uL Normal 138-453 [facility] Comment on above: Performed By: #### P HO, CDP, RA, PT, SED, BMPX, FREDA, MG, LD, CRP, FEBC, B12FOL, PTT, C4, CCPAB, FERI, IOCAL, CORTI, CK, C3, REJEC #### [employer] [address] [place] [address] [phone] Septic Tank Servicer: Jasbir Montalvo MD Platelets (Bld) [#/Vol] 252 10*3/uL [facility] Protime-INRon 12-07-2023 INR Coag (PPP) [Relative time] 3.2 {INR} [facility] Comment on above: Therapeutic Range: Moderate Anticoagulant Intensity: INR = 2.0-3.0 High Anticoagulant Intensity: INR = 2.5-3.5 Interpretation and review of laboratory results Abnormal [facility] PT Coag (PPP) [Time] 32.1 s High [facility] Glucose,Whole Bloodon 2023 Glucose [Mass/Vol] 155 mg/dL High 75-110 [facility] Glucose [Mass/Vol] 190 mg/dL High 75-110 [facility] Glucose [Mass/Vol] 176 mg/dL High 75-110 [facility] Glucose [Mass/Vol] 119 mg/dL High 75-110 [facility] POC Glucose Fingerstickon Glucose [Mass/Vol] 155 mg/dL High 75 - 110 mg/dL [facility] Interpretation and review of laboratory results Abnormal [facility] Glucose [Mass/Vol] 190 mg/dL High 75 - 110 mg/dL [facility] Interpretation and review of laboratory results Abnormal [facility] Glucose [Mass/Vol] 176 mg/dL High 75 - 110 mg/dL [facility] Interpretation and review of laboratory results Abnormal [facility] Glucose [Mass/Vol] 119 mg/dL High 75 - 110 mg/dL [facility] Interpretation and review of laboratory results Abnormal [facility] PTon 12-06-2023 INR Coag (PPP) [Relative time] 2.7 {INR} Normal [facility] Comment on above: Result Comment: Therapeutic Range: Moderate Anticoagulant Intensity: INR = 2.0-3.0 High Anticoagulant Intensity: INR = 2.5-3.5 Performed By: #### P HO, CDP, RA, PT, SED, BMPX, FREDA, MG, LD, CRP, FEBC, B12FOL, PTT, C4, CCPAB, FERI, IOCAL, CORTI, CK, C3, REJEC #### [employer] [facility] [place], [place] [phone] Septic Tank Servicer: Jasbir Montalvo MD PT Coag (PPP) [Time] 28.0 s High 11.7-14.9 [facility] Comment on above: Performed By: #### P HO, CDP, RA, PT, SED, BMPX, FREDA, MG, LD, CRP, FEBC, B12FOL, PTT, C4, CCPAB, FERI, IOCAL, CORTI, CK, C3, REJEC #### [employer] [facility] [place] [address] Septic Tank Servicer: Jasbir Montalvo MD Protime-INRon 12-06-2023 INR Coag (PPP) [Relative time] 2.7 {INR} [facility] [employer] Comment on above: Therapeutic Range: Moderate Anticoagulant Intensity: INR = 2.0-3.0 High Anticoagulant Intensity: INR = 2.5-3.5 Interpretation and review of laboratory results Abnormal [facility] [employer] PT Coag (PPP) [Time] 28.0 s High [facility] [employer] [facility] XR FOOT RIGHT (2 VIEWS)on XR FOOT [...] Christian Baldwin MD 12/06/23 Final result Normal [facility] XR Foot - right 2 Viewson 1. No fracture or dislocation. 2. Mild osteoarthritic changes. 3. Diffuse soft tissue swelling. [facility] EXAMINATION: TWO XRAY VIEWS OF THE [...] diffuse soft tissue swelling of the foot. [facility] Christian Baldwin MD - 12/06/2023 EXAMINATION: [...] osteoarthritic changes. 3. Diffuse soft tissue swelling. [facility] XR Foot - right 2 ViewsOrder ed By: Christian Baldwin on 12-06-2023 [facility] Work Phone: Glucose,Whole Bloodon 2023 Glucose [Mass/Vol] 160 mg/dL High 75-110 [facility] Glucose [Mass/Vol] 137 mg/dL High 75-110 [facility] Glucose [Mass/Vol] 189 mg/dL High 75-110 [facility] Glucose [Mass/Vol] 131 mg/dL High 75-110 [facility] Hemoglobin and Hematocriton 12-05-2023 Hematocrit (Bld) [Volume fraction] 42.9 % 40.7 - 50.3 % [facility] Hemoglobin (Bld) [Mass/Vol] 13.1 g/dL 13.0 - 17.0 g/dL [facility] Hgb/Hcton 12-05-2023 Hematocrit (Bld) [Volume fraction] 42.9 % Normal 40.7-50.3 [facility] Comment on above: Performed By: #### P HO, CDP, RA, PT, SED, BMPX, FREDA, MG, LD, CRP, FEBC, B12FOL, PTT, C4, CCPAB, FERI, IOCAL, CORTI, CK, C3, REJEC #### [facility] [employer] [address] [place] [phone] [employer] Servicer: Jasbir Montalvo MD Hemoglobin (Bld) [Mass/Vol] 13.1 g/dL Normal 13.0-17.0 [facility] Comment on above: Performed By: #### P HO, CDP, RA, PT, SED, BMPX, FREDA, MG, LD, CRP, FEBC, B12FOL, PTT, C4, CCPAB, FERI, IOCAL, CORTI, CK, C3, REJEC #### [facility] [employer] [address] [place] [address] [phone] [employer] Servicer: Jasbir Montalvo MD No Panel Informationon 12-04 [facility] POC Glucose Fingerstickon Glucose [Mass/Vol] 160 mg/dL High 75 - 110 mg/dL [facility] Interpretation and review of laboratory results Abnormal [facility] Glucose [Mass/Vol] 137 mg/dL High 75 - 110 mg/dL [facility] Interpretation and review of laboratory results Abnormal [facility] Glucose [Mass/Vol] 189 mg/dL High 75 - 110 mg/dL [facility] Interpretation and review of laboratory results Abnormal [facility] Glucose [Mass/Vol] 131 mg/dL High 75 - 110 mg/dL [facility] Interpretation and review of laboratory results Abnormal [facility] PTon 12-05-2023 INR Coag (PPP) [Relative time] 2.6 {INR} Normal [facility] Comment on above: Result Comment: Therapeutic Range: Moderate Anticoagulant Intensity: INR = 2.0-3.0 High Anticoagulant Intensity: INR = 2.5-3.5 Performed By: #### P HO, CDP, RA, PT, SED, BMPX, FREDA, MG, LD, CRP, FEBC, B12FOL, PTT, C4, CCPAB, FERI, IOCAL, CORTI, CK, C3, REJEC #### [address] [phone] [employer] Tank Servicer: Jasbir Montalvo MD PT Coag (PPP) [Time] 26.8 s High 11.7-14.9 [facility] Comment on above: Performed By: #### P HO, CDP, RA, PT, SED, BMPX, FREDA, MG, LD, CRP, FEBC, B12FOL, PTT, C4, CCPAB, FERI, IOCAL, CORTI, CK, C3, REJEC #### [place] [phone] Septic Tank Servicer: Jasbir Montalvo MD Platelet Counton 12-05-2023 Platelets (Bld) [#/Vol] 194 10*3/uL Normal 138-453 [facility] Comment on above: Performed By: #### P HO, CDP, RA, PT, SED, BMPX, FREDA, MG, LD, CRP, FEBC, B12FOL, PTT, C4, CCPAB, FERI, IOCAL, CORTI, CK, C3, REJEC #### [address] [phone] [employer] Servicer: Jasbir Montalvo MD Platelets (Bld) [#/Vol] 194 10*3/uL [facility] Protime-INRon 12-05-2023 INR Coag (PPP) [Relative time] 2.6 {INR} [facility] Comment on above: Therapeutic Range: Moderate Anticoagulant Intensity: INR = 2.0-3.0 High Anticoagulant Intensity: INR = 2.5-3.5 Interpretation and review of laboratory results Abnormal [facility] PT Coag (PPP) [Time] 26.8 s High [facility] SERVICESZ[facility]et[facility] XR Foot - right 2 Viewson Radiology Study observation (narrative) [facility] Glucose,Whole Bloodon 2023 Glucose [Mass/Vol] 181 mg/dL High 75-110 [facility] Glucose [Mass/Vol] 194 mg/dL High 75-110 [facility] Glucose [Mass/Vol] 184 mg/dL High 75-110 [facility] Glucose [Mass/Vol] 120 mg/dL High 75-110 [facility] Glucose [Mass/Vol] 161 mg/dL High 75-110 [facility] POC Glucose Fingerstickon Glucose [Mass/Vol] 181 mg/dL High 75 - 110 mg/dL [facility]ALLight[facility] [employer] Interpretation and review of laboratory results Abnormal [facility]ITALLightpoint MedicalATRIUM HE[facility] WA[facility] BAP[facility]IL[facility] MED[facility] CENTERLightpoint Medical [employer] Glucose [Mass/Vol] 194 mg/dL High 75 - 110 mg/dL [facility] HOS[facility]ITALKG Funding [facility] Interpretation and review of laboratory results Abnormal [facility]ITALZymetis [facility]ITALZ[facility] Glucose [Mass/Vol] 184 mg/dL High 75 - 110 mg/dL [facility] Funding [facility] Interpretation and review of laboratory results Abnormal [facility] [employer] StudioATRIUM [facility] CENTERLightpoint Medical [employer] Glucose [Mass/Vol] 120 mg/dL High 75 - 110 mg/dL [facility]ITALLightpoint MedicalAD[facility] Interpretation and review of laboratory results Abnormal [facility] [employer] StudioATRIUM HE[facility] CENTERLightpoint Medical [employer] Glucose [Mass/Vol] 161 mg/dL High 75 - 110 mg/dL [facility] Interpretation and review of laboratory results Abnormal [facility] HOSPITALZymetis [facility]ITALZymetis PTon 12-04-2023 INR Coag (PPP) [Relative time] 3.0 {INR} Normal [facility] Comment on above: Result Comment: Therapeutic Range: Moderate Anticoagulant Intensity: INR = 2.0-3.0 High Anticoagulant Intensity: INR = 2.5-3.5 Performed By: #### P HO, CDP, RA, PT, SED, BMPX, FREDA, MG, LD, CRP, FEBC, B12FOL, PTT, C4, CCPAB, FERI, IOCAL, CORTI, CK, C3, REJEC #### [employer] [address], [place] [id number] [employer] Servicer: Jasbir Montalvo MD PT Coag (PPP) [Time] 30.5 s High 11.7-14.9 [facility] Comment on above: Performed By: #### P HO, CDP, RA, PT, SED, BMPX, FREDA, MG, LD, CRP, FEBC, B12FOL, PTT, C4, CCPAB, FERI, IOCAL, CORTI, CK, C3, REJEC #### [employer] [address], [place] [id number] [employer]: Jasbir Montalvo MD Protime-INRon 12-04-2023 INR Coag (PPP) [Relative time] 3.0 {INR} New [employer] MD Comment on above: Therapeutic Range: Moderate Anticoagulant Intensity: INR = 2.0-3.0 High Anticoagulant Intensity: INR = 2.5-3.5 Interpretation and review of laboratory results Abnormal New Body MD PT Coag (PPP) [Time] 30.5 s High [employer] EKG 12 LeadOrdered By: Cesar Jean on 12-03-2023 Atrial Rate 67 BPM New Body MD Work Phone: P Baxter 78 degrees New Body MD Work Phone: P-R Interval 148 ms New Body MD Work Phone: Q-T Interval 404 ms New Body MD Work Phone: QRS Duration 70 ms New Body MD Work Phone: QTc Calculation (Bazett) 426 ms New Body MD Work Phone: R Baxter -47 degrees New Body MD Work Phone: T Baxter 100 degrees New Body MD Work Phone: Ventricular Rate 67 BPM [employer] Work Phone: New Body MD Work Phone: EKG 12 Leadon 12-03-2023 Normal sinus rhythm Left axis deviation Inferior infarct , 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 , age undetermined Abnormal ECG No previous ECGs available [facility] Lori Yoder MD - 12/03/2023 Normal sinus rhythm Left axis deviation Inferior infarct , 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 , age undetermined Abnormal ECG No previous ECGs available New Body MD Atrial Rate 66 BPM [employer] P Baxter 111 degrees [place] [employer] P-R Interval 128 ms [facility] [employer] Q-T Interval 440 ms [facility] [place] QRS Duration 94 ms [facility] [employer] QTc Calculation (Bazett) 461 ms [facility] R Baxter -48 degrees [facility] [employer] T Baxter 12 degrees [facility] [place] Ventricular Rate 66 BPM [facility] [employer] Normal sinus rhythm Left anterior fascicular block Anterolateral infarct (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) Abnormal ECG When compared with ECG of 01-DEC-2023 15:42, QRS duration has increased ST no longer depressed in Anterolateral leads [facility] Lori Yoder MD - 12/03/2023 Normal sinus rhythm Left anterior fascicular block Anterolateral infarct (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) Abnormal ECG When compared with ECG of 01-DEC-2023 15:42, QRS duration has increased ST no longer depressed in Anterolateral leads [facility] Glucose,Whole Bloodon 2023 Glucose [Mass/Vol] 232 mg/dL High 75-110 [facility] Glucose [Mass/Vol] 174 mg/dL High 75-110 [facility] Glucose [Mass/Vol] 176 mg/dL High 75-110 [facility] Glucose [Mass/Vol] 83 mg/dL Normal 75-110 [facility] POC Glucose Fingerstickon Glucose [Mass/Vol] 232 mg/dL High 75 - 110 mg/dL [facility] Interpretation and review of laboratory results Abnormal [facility] Glucose [Mass/Vol] 174 mg/dL High 75 - 110 mg/dL [facility] Interpretation and review of laboratory results Abnormal [facility] Glucose [Mass/Vol] 176 mg/dL High 75 - 110 mg/dL [facility] Interpretation and review of laboratory results Abnormal [facility] Glucose [Mass/Vol] 83 mg/dL 75 - 110 mg/dL [facility] PTon 12-03-2023 INR Coag (PPP) [Relative time] 3.3 {INR} Normal [facility] Comment on above: Result Comment: Therapeutic Range: Moderate Anticoagulant Intensity: INR = 2.0-3.0 High Anticoagulant Intensity: INR = 2.5-3.5 Performed By: #### P HO, CDP, RA, PT, SED, BMPX, FREDA, MG, LD, CRP, FEBC, B12FOL, PTT, C4, CCPAB, FERI, IOCAL, CORTI, CK, C3, REJEC #### [employer] [address] [place] [address] [employer]: Jasbir Montalvo MD PT Coag (PPP) [Time] 32.2 s High 11.7-14.9 [facility] Comment on above: Performed By: #### P HO, CDP, RA, PT, SED, BMPX, FREDA, MG, LD, CRP, FEBC, B12FOL, PTT, C4, CCPAB, FERI, IOCAL, CORTI, CK, C3, REJEC #### [employer] [address] [place] [address] [employer]: Jasbir Montalvo MD Protime-INRon 12-03-2023 INR Coag (PPP) [Relative time] 3.3 {INR} [facility] Comment on above: Therapeutic Range: Moderate Anticoagulant Intensity: INR = 2.0-3.0 High Anticoagulant Intensity: INR = 2.5-3.5 Interpretation and review of laboratory results Abnormal [facility] PT Coag (PPP) [Time] 32.2 s High [facility] Basic Metab w/rfx MGon 12-02 Anion gap [Moles/Vol] 9 mmol/L Normal 9-17 [facility] Comment on above: Performed By: #### P HO, CDP, RA, PT, SED, BMPX, FREDA, MG, LD, CRP, FEBC, B12FOL, PTT, C4, CCPAB, FERI, IOCAL, CORTI, CK, C3, REJEC #### [facility] [employer] [address] [place] [phone] [employer]: Jasbir Montalvo MD Calcium [Mass/Vol] 8.8 mg/dL Normal 8.6-10.4 [facility] Comment on above: Performed By: #### P HO, CDP, RA, PT, SED, BMPX, FREDA, MG, LD, CRP, FEBC, B12FOL, PTT, C4, CCPAB, FERI, IOCAL, CORTI, CK, C3, REJEC #### [facility] [employer] [address] [place] [phone] [employer]: Jasbir Montalvo MD Chloride [Moles/Vol] 109 mmol/L High 98-107 [facility] Comment on above: Performed By: #### P HO, CDP, RA, PT, SED, BMPX, FREDA, MG, LD, CRP, FEBC, B12FOL, PTT, C4, CCPAB, FERI, IOCAL, CORTI, CK, C3, REJEC #### [facility] [employer] [address] [place] [phone] [employer]: Jasbir Montalvo MD CO2 [Moles/Vol] 22 mmol/L Normal 20-31 [facility] Comment on above: Performed By: #### P HO, CDP, RA, PT, SED, BMPX, FREDA, MG, LD, CRP, FEBC, B12FOL, PTT, C4, CCPAB, FERI, IOCAL, CORTI, CK, C3, REJEC #### [facility] [employer] [address] [place] [phone] [employer]: Jasbir Montalvo MD Creatinine [Mass/Vol] 1.5 mg/dL High 0.7-1.2 [facility] Comment on above: Performed By: #### P HO, CDP, RA, PT, SED, BMPX, FREDA, MG, LD, CRP, FEBC, B12FOL, PTT, C4, CCPAB, FERI, IOCAL, CORTI, CK, C3, REJEC #### [address] [phone] [employer]: Jasbir Montalvo MD GFR/1.73 sq M.predicted among non-blacks MDRD (S/P/Bld) [Vol rate/Area] 52 mL/min/{1.73_m2} Low >60 [facility] Comment on above: Result Comment: [...] FERI, IOCAL, CORTI, CK, C3, REJEC #### [facility] [employer] [address] [place] [phone] [employer]: Jasbir Montalvo MD Glucose [Mass/Vol] 165 mg/dL High 70-99 [facility] Comment on above: Performed By: #### P HO, CDP, RA, PT, SED, BMPX, FREDA, MG, LD, CRP, FEBC, B12FOL, PTT, C4, CCPAB, FERI, IOCAL, CORTI, CK, C3, REJEC #### [facility] [employer] [address] [place] [phone] [employer]: Jasbir Montalvo MD Potassium [Moles/Vol] 3.7 mmol/L Normal 3.7-5.3 [facility] Comment on above: Performed By: #### P HO, CDP, RA, PT, SED, BMPX, FREDA, MG, LD, CRP, FEBC, B12FOL, PTT, C4, CCPAB, FERI, IOCAL, CORTI, CK, C3, REJEC #### [facility] [address] [place] [phone] [employer]: Jasbir Montalvo MD Sodium [Moles/Vol] 140 mmol/L Normal 135-144 [facility] Comment on above: Performed By: #### P HO, CDP, RA, PT, SED, BMPX, FREDA, MG, LD, CRP, FEBC, B12FOL, PTT, C4, CCPAB, FERI, IOCAL, CORTI, CK, C3, REJEC #### [facility] [address] [place] [phone] [employer]: Jasbir Montalvo MD Urea nitrogen [Mass/Vol] 36 mg/dL High 8-23 [facility] Comment on above: Performed By: #### P HO, CDP, RA, PT, SED, BMPX, FREDA, MG, LD, CRP, FEBC, B12FOL, PTT, C4, CCPAB, FERI, IOCAL, CORTI, CK, C3, REJEC #### [facility] [employer] [address] [place] [phone] [employer]: Jasbir Montalvo MD Basic Metabolic Panel w/ Ref sarah to MGon 12-02-2023 Anion gap [Moles/Vol] 9 mmol/L 9 - 17 mmol/L [facility] Calcium [Mass/Vol] 8.8 mg/dL 8.6 - 10. 4 mg/dL [facility] Chloride [Moles/Vol] 109 mmol/L High 98 - 107 mmol/L [employer] [facility] CO2 [Moles/Vol] 22 mmol/L 20 - 31 mmol/L [facility] Creatinine [Mass/Vol] 1.5 mg/dL High 0.7 - 1.2 mg/dL [facility] GFR/1.73 sq M.predicted MDRD (S/P/Bld) [Vol rate/Area] 52 mL/min/{1.73_m2} Low - PINF [facility] Comment on above: These results are not [...] 165 mg/dL High 70 - 99 mg/dL [facility] Interpretation and review of laboratory results Abnormal [facility] Potassium [Moles/Vol] 3.7 mmol/L 3.7 - 5.3 mmol/L [facility] Sodium [Moles/Vol] 140 mmol/L 135 - 144 mmol/L [facility] Urea nitrogen [Mass/Vol] 36 mg/dL High 8 - 23 mg/dL [facility] CBC with Auto Differentialon 12-02-2023 Basophils (Bld) [#/Vol] 0.08 10*3/uL [facility] Basophils/100 WBC (Bld) 1 % 0 - 2 % [facility] Eosinophils (Bld) [#/Vol] 0.43 10*3/uL [facility] Eosinophils/100 WBC (Bld) 4 % 1 - 4 % [facility] Erythrocyte distribution width (RBC) [Ratio] 14.2 % 11.8 - 14.4 % [facility] Hematocrit (Bld) [Volume fraction] 46.4 % 40.7 - 50.3 % [facility] Hemoglobin (Bld) [Mass/Vol] 14.4 g/dL 13.0 - 17.0 g/dL [facility] Immature granulocytes (Bld) [#/Vol] 0.03 10*3/uL [facility] Immature granulocytes/100 WBC (Bld) 0 % 0 [facility] Lymphocytes/100 WBC (Bld) 29 % 24 - 43 % [facility] Lymphocytes/100 WBC (Bld) 3.23 % [facility] MCH (RBC) [Entitic mass] 31.2 pg 25.2 - 33.5 pg [facility] MCHC (RBC) [Mass/Vol] 31.0 g/dL 28.4 - 34.8 g/dL [facility] MCV (RBC) [Entitic vol] 100.7 fL 82.6 - 102.9 fL [facility] Monocytes/100 WBC (Bld) 8 % 3 - 12 % [facility] Monocytes/100 WBC (Bld) 0.93 % [facility] Neutrophils/100 WBC (Bld) 58 % 36 - 65 % [facility] Nucleated RBC/100 WBC (Bld) [Ratio] 0.0 % 0.0 per 100 WBC [facility] Platelet mean volume (Bld) [Entitic vol] 10.3 fL 8.1 - 13.5 fL [facility] Platelets (Bld) [#/Vol] 230 10*3/uL [facility] RBC (Bld) [#/Vol] 4.61 10*6/uL 4.21 - 5.7 7 m/uL [facility] Segmented neutrophils/100 WBC (Bld) 6.39 % [facility] WBC other (Bld) [#/Vol] 11.1 [facility] CBC with Diffon 12-02-2023 Abs. Basophil 0.08 k/uL Normal 0.00-0.20 [facility] Comment on above: Performed By: #### P HO, CDP, RA, PT, SED, BMPX, FREDA, MG, LD, CRP, FEBC, B12FOL, PTT, C4, CCPAB, FERI, IOCAL, CORTI, CK, C3, REJEC #### [facility] [place] [address] [employer]: Jasbir Montalvo MD Abs.Imm.Granulocyte 0.03 k/uL Normal 0.00-0.30 [facility] Comment on above: Performed By: #### P HO, CDP, RA, PT, SED, BMPX, FREDA, MG, LD, CRP, FEBC, B12FOL, PTT, C4, CCPAB, FERI, IOCAL, CORTI, CK, C3, REJEC #### [address] [address] [employer]: Jasbir Montalvo MD Abs.Neutrophil (Seg) 6.39 k/uL Normal 1.50-8.10 [facility] Comment on above: Performed By: #### P HO, CDP, RA, PT, SED, BMPX, FREDA, MG, LD, CRP, FEBC, B12FOL, PTT, C4, CCPAB, FERI, IOCAL, CORTI, CK, C3, REJEC #### [address] [address] [employer]: Jasbir Montalvo MD Basophils/100 WBC (Bld) 1 % Normal 0-2 [facility] Comment on above: Performed By: #### P HO, CDP, RA, PT, SED, BMPX, FREDA, MG, LD, CRP, FEBC, B12FOL, PTT, C4, CCPAB, FERI, IOCAL, CORTI, CK, C3, REJEC #### [address] [address] [employer]: Jasbir Montalvo MD Eosinophils (Bld) [#/Vol] 0.43 10*3/uL Normal 0.00-0.44 [facility] Comment on above: Performed By: #### P HO, CDP, RA, PT, SED, BMPX, FREDA, MG, LD, CRP, FEBC, B12FOL, PTT, C4, CCPAB, FERI, IOCAL, CORTI, CK, C3, REJEC #### [address] [address] [employer]: Jasbir Montalvo MD Eosinophils/100 WBC (Bld) 4 % Normal 1-4 [facility] Comment on above: Performed By: #### P HO, CDP, RA, PT, SED, BMPX, FREDA, MG, LD, CRP, FEBC, B12FOL, PTT, C4, CCPAB, FERI, IOCAL, CORTI, CK, C3, REJEC #### [address] [address] [employer]: Jasbir Montalvo MD Erythrocyte distribution width (RBC) [Ratio] 14.2 % Normal 11.8-14.4 [facility] Comment on above: Performed By: #### P HO, CDP, RA, PT, SED, BMPX, FREDA, MG, LD, CRP, FEBC, B12FOL, PTT, C4, CCPAB, FERI, IOCAL, CORTI, CK, C3, REJEC #### [address] [address] [employer]: Jasbir Montalvo MD Hematocrit (Bld) [Volume fraction] 46.4 % Normal 40.7-50.3 [facility] Comment on above: Performed By: #### P HO, CDP, RA, PT, SED, BMPX, FREDA, MG, LD, CRP, FEBC, B12FOL, PTT, C4, CCPAB, FERI, IOCAL, CORTI, CK, C3, REJEC #### [address] [address] [employer]: Jasbir Montalvo MD Hemoglobin (Bld) [Mass/Vol] 14.4 g/dL Normal 13.0-17.0 [facility] Comment on above: Performed By: #### P HO, CDP, RA, PT, SED, BMPX, FREDA, MG, LD, CRP, FEBC, B12FOL, PTT, C4, CCPAB, FERI, IOCAL, CORTI, CK, C3, REJEC #### [address] [address] [employer]: Jasbir Montalvo MD Immature granulocytes/100 WBC (Bld) 0 % Normal 0 [facility] Comment on above: Performed By: #### P HO, CDP, RA, PT, SED, BMPX, FREDA, MG, LD, CRP, FEBC, B12FOL, PTT, C4, CCPAB, FERI, IOCAL, CORTI, CK, C3, REJEC #### [address] [address] [employer]: Jasbir Montalvo MD Lymphocytes (Bld) [#/Vol] 3.23 10*3/uL Normal 1.10-3.70 [facility] Comment on above: Performed By: #### P HO, CDP, RA, PT, SED, BMPX, FREDA, MG, LD, CRP, FEBC, B12FOL, PTT, C4, CCPAB, FERI, IOCAL, CORTI, CK, C3, REJEC #### [address] [address] [employer]: Jasbir Montalvo MD Lymphocytes/100 WBC (Bld) 29 % Normal 24-43 [facility] Comment on above: Performed By: #### P HO, CDP, RA, PT, SED, BMPX, FREDA, MG, LD, CRP, FEBC, B12FOL, PTT, C4, CCPAB, FERI, IOCAL, CORTI, CK, C3, REJEC #### [address] [address] [employer]: Jasbir Montalvo MD MCH (RBC) [Entitic mass] 31.2 pg Normal 25.2-33.5 [facility] Comment on above: Performed By: #### P HO, CDP, RA, PT, SED, BMPX, FREDA, MG, LD, CRP, FEBC, B12FOL, PTT, C4, CCPAB, FERI, IOCAL, CORTI, CK, C3, REJEC #### [address] [address] [employer]: Jasbir Montalvo MD MCHC (RBC) [Mass/Vol] 31.0 g/dL Normal 28.4-34.8 [facility] Comment on above: Performed By: #### P HO, CDP, RA, PT, SED, BMPX, FREDA, MG, LD, CRP, FEBC, B12FOL, PTT, C4, CCPAB, FERI, IOCAL, CORTI, CK, C3, REJEC #### [address] [address] [employer]: Jasbir Montalvo MD MCV (RBC) [Entitic vol] 100.7 fL Normal 82.6-102.9 [facility] Comment on above: Performed By: #### P HO, CDP, RA, PT, SED, BMPX, FREDA, MG, LD, CRP, FEBC, B12FOL, PTT, C4, CCPAB, FERI, IOCAL, CORTI, CK, C3, REJEC #### [address] [address] [employer]: Jasbir Montalvo MD Monocytes (Bld) [#/Vol] 0.93 10*3/uL Normal 0.10-1.20 [facility] Comment on above: Performed By: #### P HO, CDP, RA, PT, SED, BMPX, FREDA, MG, LD, CRP, FEBC, B12FOL, PTT, C4, CCPAB, FERI, IOCAL, CORTI, CK, C3, REJEC #### [address] [address] [employer]: Jasbir Montalvo MD Monocytes/100 WBC (Bld) 8 % Normal 3-12 [facility] Comment on above: Performed By: #### P HO, CDP, RA, PT, SED, BMPX, FREDA, MG, LD, CRP, FEBC, B12FOL, PTT, C4, CCPAB, FERI, IOCAL, CORTI, CK, C3, REJEC #### [address] [address] [employer]: Jasbir Montalvo MD Neutrophil (Seg) 58 % Normal 36-65 [facility] Comment on above: Performed By: #### P HO, CDP, RA, PT, SED, BMPX, FREDA, MG, LD, CRP, FEBC, B12FOL, PTT, C4, CCPAB, FERI, IOCAL, CORTI, CK, C3, REJEC #### [address] [address] [employer]: Jasbir Montalvo MD NRBC Automated 0.0 per 100 WBC Normal 0.0 [facility] Comment on above: Performed By: #### P HO, CDP, RA, PT, SED, BMPX, FREDA, MG, LD, CRP, FEBC, B12FOL, PTT, C4, CCPAB, FERI, IOCAL, CORTI, CK, C3, REJEC #### [address] [address] [employer]: Jasbir Montalvo MD Platelet mean volume (Bld) [Entitic vol] 10.3 fL Normal 8.1-13.5 [facility] Comment on above: Performed By: #### P HO, CDP, RA, PT, SED, BMPX, FREDA, MG, LD, CRP, FEBC, B12FOL, PTT, C4, CCPAB, FERI, IOCAL, CORTI, CK, C3, REJEC #### [address] [address] [employer]: Jasbir Montalvo MD Platelets (Bld) [#/Vol] 230 10*3/uL Normal 138-453 [facility] Comment on above: Performed By: #### P HO, CDP, RA, PT, SED, BMPX, FREDA, MG, LD, CRP, FEBC, B12FOL, PTT, C4, CCPAB, FERI, IOCAL, CORTI, CK, C3, REJEC #### [address] [address] [employer]: Jasbir Montalvo MD RBC (Bld) [#/Vol] 4.61 10*6/uL Normal 4.21-5.77 [facility] Comment on above: Performed By: #### P HO, CDP, RA, PT, SED, BMPX, FREDA, MG, LD, CRP, FEBC, B12FOL, PTT, C4, CCPAB, FERI, IOCAL, CORTI, CK, C3, REJEC #### [place] [id number] [place], [place] [id number] [employer]: Jasbir Montalvo MD WBC (Bld) [#/Vol] 11.1 10*3/uL Normal 3.5-11.3 [facility] Comment on above: Performed By: #### P HO, CDP, RA, PT, SED, BMPX, FREDA, MG, LD, CRP, FEBC, B12FOL, PTT, C4, CCPAB, FERI, IOCAL, CORTI, CK, C3, REJEC #### [address] [id number] [employer]: Jasbir Montalvo MD EEGon 12-02-2023 Ayo Torres [...] Polly Ramos MD 2 Units at 12/02/23 0828 atorvastatin (LIPITOR) tablet 40 mg 40 mg Oral Daily Jamia Nur MD 40 mg at 12/01/23 4259 [Held by provider] metFORMIN (GLUCOPHAGE) tablet 500 [...] vial 0-4 Units 0-4 Units SubCUTAneous TID Jackie Rivas MD 1 Units at 12/01/23 [...] 5-40 mL IntraVENous 2 times per day Sue Willams PA 10 mL at 12/02/23 0903 [...] to moderate encephalopathy . Ayo Torres MD [facility] EEGOrdered By: Ayo Torres on 12-02-2023 [facility] Work Phone: Glucose,Whole Bloodon 2023 Glucose [Mass/Vol] 179 mg/dL High 75-110 [facility] Glucose [Mass/Vol] 169 mg/dL High 75-110 [facility] Glucose [Mass/Vol] 172 mg/dL High 75-110 [facility] Glucose [Mass/Vol] 117 mg/dL High 75-110 [facility] POC Glucose Fingerstickon Glucose [Mass/Vol] 179 mg/dL High 75 - 110 mg/dL [facility] [employer] Interpretation and review of laboratory results Abnormal [facility] [employer] Glucose [Mass/Vol] 169 mg/dL High 75 - 110 mg/dL [facility] Interpretation and review of laboratory results Abnormal [facility] [employer] Glucose [Mass/Vol] 172 mg/dL High 75 - 110 mg/dL [facility] Interpretation and review of laboratory results Abnormal [facility] [employer] Glucose [Mass/Vol] 117 mg/dL High 75 - 110 mg/dL [facility] [employer] Interpretation and review of laboratory results Abnormal [facility] [employer] [facility] [employer] PTon 12-02-2023 INR Coag (PPP) [Relative time] 2.8 {INR} Normal [facility] Comment on above: Result Comment: Therapeutic Range: Moderate Anticoagulant Intensity: INR = 2.0-3.0 High Anticoagulant Intensity: INR = 2.5-3.5 Performed By: #### P HO, CDP, RA, PT, SED, BMPX, FREDA, MG, LD, CRP, FEBC, B12FOL, PTT, C4, CCPAB, FERI, IOCAL, CORTI, CK, C3, REJEC #### [employer] [address] [place] [id number] [employer]: Jasbir Montalvo MD PT Coag (PPP) [Time] 28.9 s High 11.7-14.9 [facility] Comment on above: Performed By: #### P HO, CDP, RA, PT, SED, BMPX, FREDA, MG, LD, CRP, FEBC, B12FOL, PTT, C4, CCPAB, FERI, IOCAL, CORTI, CK, C3, REJEC #### [facility] [place] [address] [employer]: Jasbir Montalvo MD Protime-INRon 12-02-2023 INR Coag (PPP) [Relative time] 2.8 {INR} [facility] Comment on above: Therapeutic Range: Moderate Anticoagulant Intensity: INR = 2.0-3.0 High Anticoagulant Intensity: INR = 2.5-3.5 Interpretation and review of laboratory results Abnormal [facility] PT Coag (PPP) [Time] 28.9 s High [facility] Aldolaseon 12-01-2023 Aldolase 6.9 U/L Normal 1.2-7.6 [facility] Comment on above: Result Comment: (NOT E) This specimen is Hemolyzed. This may cause the results to be falsely increased. REFERENCE INTERVAL: Aldolase Access complete set of age- and/or gender-specific reference intervals for this test in the [employer] [facility] Test Directory ([place]). Performed By: [employer] [address] [place] [id number] [employer]ovolta[employer] Installer: Uriah Prasad MD, PhD CLIA Number: [id number] Performed By: #### P HO, CDP, RA, PT, SED, BMPX, FREDA, MG, LD, CRP, FEBC, B12FOL, PTT, C4, CCPAB, FERI, IOCAL, CORTI, CK, C3, REJEC #### [facility] [address] [place] [id number] [employer] Servicer: Jasbir Montalvo MD Aldolase [Catalytic activity/Vol] 6.9 mU/mL 1.2 - 7.6 U/L [facility] Comment on above: (NOTE) This specimen is Hemolyzed. This may cause the results to be falsely increased. REFERENCE INTERVAL: Aldolase Access complete set of age- and/or gender-specific reference intervals for this test in the [employer] [facility] Test Directory ([place]). Performed By: [employer] [address] [place] [address] [employer] Installer: Uriah Prasad MD, PhD CLIA Number: [id number] [facility] Anti CCPon 12-01-2023 Anti CCP 1.5 U/mL Normal 0.0-7.0 [facility] Comment on above: Result Comment: Reference Range: <7.0 Negative 7.0-10.0 Equivocal >10.0 Positive Performed By: #### P HO, CDP, RA, PT, SED, BMPX, FREDA, MG, LD, CRP, FEBC, B12FOL, PTT, C4, CCPAB, FERI, IOCAL, CORTI, CK, C3, REJEC #### [address] [id number] [employer] Servicer: Jasbir Montalvo MD Basic Metab w/rfx MGon 12-01 Anion gap [Moles/Vol] 10 mmol/L Normal 9-17 [facility] Comment on above: Performed By: #### P HO, CDP, RA, PT, SED, BMPX, FREDA, MG, LD, CRP, FEBC, B12FOL, PTT, C4, CCPAB, FERI, IOCAL, CORTI, CK, C3, REJEC #### [address] [address] [employer]: Jasbir Montalvo MD Calcium [Mass/Vol] 8.9 mg/dL Normal 8.6-10.4 [facility] Comment on above: Performed By: #### P HO, CDP, RA, PT, SED, BMPX, FREDA, MG, LD, CRP, FEBC, B12FOL, PTT, C4, CCPAB, FERI, IOCAL, CORTI, CK, C3, REJEC #### [address] [address] [employer]: Jasbir Montalvo MD Chloride [Moles/Vol] 108 mmol/L High 98-107 [facility] Comment on above: Performed By: #### P HO, CDP, RA, PT, SED, BMPX, FREDA, MG, LD, CRP, FEBC, B12FOL, PTT, C4, CCPAB, FERI, IOCAL, CORTI, CK, C3, REJEC #### [facility] [employer] [address] [place] [address] [employer]: Jasbir Montalvo MD CO2 [Moles/Vol] 22 mmol/L Normal 20-31 [facility] Comment on above: Performed By: #### P HO, CDP, RA, PT, SED, BMPX, FREDA, MG, LD, CRP, FEBC, B12FOL, PTT, C4, CCPAB, FERI, IOCAL, CORTI, CK, C3, REJEC #### [address] [address] [employer]: Jasbir Montalvo MD Creatinine [Mass/Vol] 1.6 mg/dL High 0.7-1.2 [facility] Comment on above: Performed By: #### P HO, CDP, RA, PT, SED, BMPX, FREDA, MG, LD, CRP, FEBC, B12FOL, PTT, C4, CCPAB, FERI, IOCAL, CORTI, CK, C3, REJEC #### [address] [address] [employer]: Jasbir Montalvo MD GFR/1.73 sq M.predicted among non-blacks MDRD (S/P/Bld) [Vol rate/Area] 48 mL/min/{1.73_m2} Low >60 [facility] Comment on above: Result Comment: [...] FERI, IOCAL, CORTI, CK, C3, REJEC #### [address] [address] [employer]: Jasbir Montalvo MD Glucose [Mass/Vol] 144 mg/dL High 70-99 [facility] Comment on above: Performed By: #### P HO, CDP, RA, PT, SED, BMPX, FREDA, MG, LD, CRP, FEBC, B12FOL, PTT, C4, CCPAB, FERI, IOCAL, CORTI, CK, C3, REJEC #### [address] [address] [employer]: Jasbir Montalvo MD Potassium [Moles/Vol] 3.8 mmol/L Normal 3.7-5.3 [facility] Comment on above: Performed By: #### P HO, CDP, RA, PT, SED, BMPX, FREDA, MG, LD, CRP, FEBC, B12FOL, PTT, C4, CCPAB, FERI, IOCAL, CORTI, CK, C3, REJEC #### [address] [address] [employer]: Jasbir Montalvo MD Sodium [Moles/Vol] 140 mmol/L Normal 135-144 [facility] Comment on above: Performed By: #### P HO, CDP, RA, PT, SED, BMPX, FREDA, MG, LD, CRP, FEBC, B12FOL, PTT, C4, CCPAB, FERI, IOCAL, CORTI, CK, C3, REJEC #### [address] [address] [employer]: Jasbir Montalvo MD Urea nitrogen [Mass/Vol] 39 mg/dL High 8-23 [facility] Comment on above: Performed By: #### P HO, CDP, RA, PT, SED, BMPX, FREDA, MG, LD, CRP, FEBC, B12FOL, PTT, C4, CCPAB, FERI, IOCAL, CORTI, CK, C3, REJEC #### [facility] [address] [id number] [employer]: Jasbir Montalvo MD Basic Metabolic Panel w/ Ref sarah to MGon 12-01-2023 Anion gap [Moles/Vol] 10 mmol/L 9 - 17 mmol/L [facility] [employer] Calcium [Mass/Vol] 8.9 mg/dL 8.6 - 10. 4 mg/dL [facility] [employer] Chloride [Moles/Vol] 108 mmol/L High 98 - 107 mmol/L [facility] CO2 [Moles/Vol] 22 mmol/L 20 - 31 mmol/L [facility] Creatinine [Mass/Vol] 1.6 mg/dL High 0.7 - 1.2 mg/dL [facility] GFR/1.73 sq M.predicted MDRD (S/P/Bld) [Vol rate/Area] 48 mL/min/{1.73_m2} Low - PINF [facility] Comment on above: These results are not [...] 144 mg/dL High 70 - 99 mg/dL [facility] Interpretation and review of laboratory results Abnormal [facility] [employer] Potassium [Moles/Vol] 3.8 mmol/L 3.7 - 5.3 mmol/L [facility] Sodium [Moles/Vol] 140 mmol/L 135 - 144 mmol/L [facility] Urea nitrogen [Mass/Vol] 39 mg/dL High 8 - 23 mg/dL [facility]AD[facility] [employer] CBC with Auto Differentialon 12-01-2023 Basophils (Bld) [#/Vol] 0.08 10*3/uL [facility] Basophils/100 WBC (Bld) 1 % 0 - 2 % [facility] Eosinophils (Bld) [#/Vol] 0.37 10*3/uL [facility] Eosinophils/100 WBC (Bld) 3 % 1 - 4 % [facility] Erythrocyte distribution width (RBC) [Ratio] 14.4 % 11.8 - 14.4 % [facility] Hematocrit (Bld) [Volume fraction] 46.3 % 40.7 - 50.3 % [facility] Hemoglobin (Bld) [Mass/Vol] 14.6 g/dL 13.0 - 17.0 g/dL [facility] Immature granulocytes (Bld) [#/Vol] 0.04 10*3/uL [facility] Immature granulocytes/100 WBC (Bld) 0 % 0 [facility] Lymphocytes/100 WBC (Bld) 25 % 24 - 43 % [facility] Lymphocytes/100 WBC (Bld) 2.76 % [facility] MCH (RBC) [Entitic mass] 31.2 pg 25.2 - 33.5 pg [facility] MCHC (RBC) [Mass/Vol] 31.5 g/dL 28.4 - 34.8 g/dL [facility] MCV (RBC) [Entitic vol] 98.9 fL 82.6 - 102.9 fL [facility] Monocytes/100 WBC (Bld) 8 % 3 - 12 % [facility] Monocytes/100 WBC (Bld) 0.82 % [facility] Neutrophils/100 WBC (Bld) 63 % 36 - 65 % [facility] Nucleated RBC/100 WBC (Bld) [Ratio] 0.0 % 0.0 per 100 WBC [facility] Platelet mean volume (Bld) [Entitic vol] 10.4 fL 8.1 - 13.5 fL [facility] Platelets (Bld) [#/Vol] 223 10*3/uL [facility] RBC (Bld) [#/Vol] 4.68 10*6/uL 4.21 - 5.7 7 m/uL [facility] Segmented neutrophils/100 WBC (Bld) 6.78 % [facility] WBC other (Bld) [#/Vol] 10.9 [facility] CBC with Diffon 12-01-2023 Abs. Basophil 0.08 k/uL Normal 0.00-0.20 [facility] Comment on above: Performed By: #### P HO, CDP, RA, PT, SED, BMPX, FREDA, MG, LD, CRP, FEBC, B12FOL, PTT, C4, CCPAB, FERI, IOCAL, CORTI, CK, C3, REJEC #### [facility] [employer] [address] [place] [address] [employer]: Jasbir Montalvo MD Abs.Imm.Granulocyte 0.04 k/uL Normal 0.00-0.30 [facility] Comment on above: Performed By: #### P HO, CDP, RA, PT, SED, BMPX, FREDA, MG, LD, CRP, FEBC, B12FOL, PTT, C4, CCPAB, FERI, IOCAL, CORTI, CK, C3, REJEC #### [facility] [employer] [address] [place] [address] [employer]: Jasbir Montalvo MD Abs.Neutrophil (Seg) 6.78 k/uL Normal 1.50-8.10 [facility] Comment on above: Performed By: #### P HO, CDP, RA, PT, SED, BMPX, FREDA, MG, LD, CRP, FEBC, B12FOL, PTT, C4, CCPAB, FERI, IOCAL, CORTI, CK, C3, REJEC #### [facility] [employer] [address] [place] [address] [employer]: Jasbir Montalvo MD Basophils/100 WBC (Bld) 1 % Normal 0-2 [facility] Comment on above: Performed By: #### P HO, CDP, RA, PT, SED, BMPX, FREDA, MG, LD, CRP, FEBC, B12FOL, PTT, C4, CCPAB, FERI, IOCAL, CORTI, CK, C3, REJEC #### [facility] [employer] [address] [place] [address] [employer]: Jasbir Montalvo MD Eosinophils (Bld) [#/Vol] 0.37 10*3/uL Normal 0.00-0.44 [facility] Comment on above: Performed By: #### P HO, CDP, RA, PT, SED, BMPX, FREDA, MG, LD, CRP, FEBC, B12FOL, PTT, C4, CCPAB, FERI, IOCAL, CORTI, CK, C3, REJEC #### [facility] [employer] [address] [place] [address] [employer]: Jasbir Montalvo MD Eosinophils/100 WBC (Bld) 3 % Normal 1-4 [facility] Comment on above: Performed By: #### P HO, CDP, RA, PT, SED, BMPX, FREDA, MG, LD, CRP, FEBC, B12FOL, PTT, C4, CCPAB, FERI, IOCAL, CORTI, CK, C3, REJEC #### [facility] [employer] [address] [place] [address] [employer]: Jasbir Montalvo MD Erythrocyte distribution width (RBC) [Ratio] 14.4 % Normal 11.8-14.4 [facility] Comment on above: Performed By: #### P HO, CDP, RA, PT, SED, BMPX, FREDA, MG, LD, CRP, FEBC, B12FOL, PTT, C4, CCPAB, FERI, IOCAL, CORTI, CK, C3, REJEC #### [facility] [employer] [address] [place] [address] [employer]: Jasbir Montalvo MD Hematocrit (Bld) [Volume fraction] 46.3 % Normal 40.7-50.3 [facility] Comment on above: Performed By: #### P HO, CDP, RA, PT, SED, BMPX, FREDA, MG, LD, CRP, FEBC, B12FOL, PTT, C4, CCPAB, FERI, IOCAL, CORTI, CK, C3, REJEC #### [facility] [employer] [address] [place] [address] [employer]: Jasbir Montalvo MD Hemoglobin (Bld) [Mass/Vol] 14.6 g/dL Normal 13.0-17.0 [facility] Comment on above: Performed By: #### P HO, CDP, RA, PT, SED, BMPX, FREDA, MG, LD, CRP, FEBC, B12FOL, PTT, C4, CCPAB, FERI, IOCAL, CORTI, CK, C3, REJEC #### [address] [address] [employer]: Jasbir Montalvo MD Immature granulocytes/100 WBC (Bld) 0 % Normal 0 [facility] Comment on above: Performed By: #### P HO, CDP, RA, PT, SED, BMPX, FREDA, MG, LD, CRP, FEBC, B12FOL, PTT, C4, CCPAB, FERI, IOCAL, CORTI, CK, C3, REJEC #### [address] [address] [employer]: Jasbir Montalvo MD Lymphocytes (Bld) [#/Vol] 2.76 10*3/uL Normal 1.10-3.70 [facility] Comment on above: Performed By: #### P HO, CDP, RA, PT, SED, BMPX, FREDA, MG, LD, CRP, FEBC, B12FOL, PTT, C4, CCPAB, FERI, IOCAL, CORTI, CK, C3, REJEC #### [facility] [employer] [address] [place] [address] [employer]: Jasbir Montalvo MD Lymphocytes/100 WBC (Bld) 25 % Normal 24-43 [facility] Comment on above: Performed By: #### P HO, CDP, RA, PT, SED, BMPX, FREDA, MG, LD, CRP, FEBC, B12FOL, PTT, C4, CCPAB, FERI, IOCAL, CORTI, CK, C3, REJEC #### [address] [address] [employer]: Jasbir Montalvo MD MCH (RBC) [Entitic mass] 31.2 pg Normal 25.2-33.5 [facility] Comment on above: Performed By: #### P HO, CDP, RA, PT, SED, BMPX, FREDA, MG, LD, CRP, FEBC, B12FOL, PTT, C4, CCPAB, FERI, IOCAL, CORTI, CK, C3, REJEC #### [address] [address] [employer]: Jasbir Montalvo MD MCHC (RBC) [Mass/Vol] 31.5 g/dL Normal 28.4-34.8 [facility] Comment on above: Performed By: #### P HO, CDP, RA, PT, SED, BMPX, FREDA, MG, LD, CRP, FEBC, B12FOL, PTT, C4, CCPAB, FERI, IOCAL, CORTI, CK, C3, REJEC #### [address] [address] [employer]: Jasbir Montalvo MD MCV (RBC) [Entitic vol] 98.9 fL Normal 82.6-102.9 [facility] Comment on above: Performed By: #### P HO, CDP, RA, PT, SED, BMPX, FREDA, MG, LD, CRP, FEBC, B12FOL, PTT, C4, CCPAB, FERI, IOCAL, CORTI, CK, C3, REJEC #### [address] [address] [employer]: Jabsir Montalvo MD Monocytes (Bld) [#/Vol] 0.82 10*3/uL Normal 0.10-1.20 [facility] Comment on above: Performed By: #### P HO, CDP, RA, PT, SED, BMPX, FREDA, MG, LD, CRP, FEBC, B12FOL, PTT, C4, CCPAB, FERI, IOCAL, CORTI, CK, C3, REJEC #### [address] [address] [employer]: Jasbir Montalvo MD Monocytes/100 WBC (Bld) 8 % Normal 3-12 [facility] Comment on above: Performed By: #### P HO, CDP, RA, PT, SED, BMPX, FREDA, MG, LD, CRP, FEBC, B12FOL, PTT, C4, CCPAB, FERI, IOCAL, CORTI, CK, C3, REJEC #### [address] [address] [employer]: Jasbir Montalvo MD Neutrophil (Seg) 63 % Normal 36-65 [facility] Comment on above: Performed By: #### P HO, CDP, RA, PT, SED, BMPX, FREDA, MG, LD, CRP, FEBC, B12FOL, PTT, C4, CCPAB, FERI, IOCAL, CORTI, CK, C3, REJEC #### [address] [address] [employer]: Jasbir Montalvo MD NRBC Automated 0.0 per 100 WBC Normal 0.0 [facility] Comment on above: Performed By: #### P HO, CDP, RA, PT, SED, BMPX, FREDA, MG, LD, CRP, FEBC, B12FOL, PTT, C4, CCPAB, FERI, IOCAL, CORTI, CK, C3, REJEC #### [address] [address] [employer]: Jasbir Montalvo MD Platelet mean volume (Bld) [Entitic vol] 10.4 fL Normal 8.1-13.5 [facility] Comment on above: Performed By: #### P HO, CDP, RA, PT, SED, BMPX, FREDA, MG, LD, CRP, FEBC, B12FOL, PTT, C4, CCPAB, FERI, IOCAL, CORTI, CK, C3, REJEC #### [address] [id number] [employer]: Jasbir Montalvo MD Platelets ([facility]) [#/Vol] 223 10*3/uL Normal 138-453 [facility] Comment on above: Performed By: #### P HO, CDP, RA, PT, SED, BMPX, FREDA, MG, LD, CRP, FEBC, B12FOL, PTT, C4, CCPAB, FERI, IOCAL, CORTI, CK, C3, REJEC #### [address] [id number] [employer]: Jasbir Montalvo MD RBC ([facility]) [#/Vol] 4.68 10*6/uL Normal 4.21-5.77 [facility] Comment on above: Performed By: #### P HO, CDP, RA, PT, SED, BMPX, FREDA, MG, LD, CRP, FEBC, B12FOL, PTT, C4, CCPAB, FERI, IOCAL, CORTI, CK, C3, REJEC #### [address] [address] [employer]: Jasbir Montalvo MD WBC (d) [#/Vol] 10.9 10*3/uL Normal 3.5-11.3 [facility] Comment on above: Performed By: #### P HO, CDP, RA, PT, SED, BMPX, FREDA, MG, LD, CRP, FEBC, B12FOL, PTT, C4, CCPAB, FERI, IOCAL, CORTI, CK, C3, REJEC #### [address] [address] [employer]: Jasbir Montalvo MD CT CERVICAL SPINE WO [...] HISTORY: rule out myelopathy, radiculopathy. cannot have SKYDIVING INSTRUCTOR PROVIDED HISTORY: rule out myelopathy, radiculopathy. cannot [...] Erica Garcia MD 12/01/23 Final result Normal [facility] CT Cervical spine WO contras ton 12-01-2023 Canal effacement at C6-7. [facility] RIS CONSOLIDATED EXAMINATION: CT OF THE CERVICAL [...] HISTORY: rule out myelopathy, radiculopathy. cannot have SKYDIVING INSTRUCTOR PROVIDED HISTORY: rule out myelopathy, radiculopathy. cannot [...] C7-T1 facet arthropathy.. Mild bilateral foraminal narrowing [facility] RIS CONSOLIDATED Erica Garcia MD - 12/01/2023 [...] HISTORY: rule out myelopathy, radiculopathy. cannot have SKYDIVING INSTRUCTOR PROVIDED HISTORY: rule out myelopathy, radiculopathy. cannot [...] foraminal narrowing IMPRESSION: Canal effacement at C6-7. [facility] Radiology Study observation (narrative) [facility] CT Cervical spine WO contras tOrdered By: Erica Garcia on 12-01-2023 [facility] Work Phone: CYCLIC CITRUL PEPTIDE ANTIBO DY, IGGon 12-01-2023 Cyclic citrullinated peptide Ab IA Qn (S) 1.5 U/mL 0.0 - 7.0 U/mL [facility] Comment on above: Reference Range: <7.0 Negative 7.0-10.0 Equivocal >10.0 Positive [facility] FL MODIFIED BARIUM SWALLOW W VIDEOon 12-01-2023 FL MODIFIED BARIUM SWALLOW W VIDEO EXAMINATION: MODIFIED BARIUM SWALLOW WAS PERFORMED IN CONJUNCTION WITH SPEECH PATHOLOGY SERVICES TECHNIQUE: Under fluoroscopic evaluation cineradiography/videoradio graphy recordings were performed in conjunction with the speech-language pathologist (LANDSCAPE ENGINEER). Various liquid, solid and/or semi-solid barium preparations [...] Micah Davis MD 12/01/23 Final result Normal [facility] 1. Trace penetration without aspiration with the thin liquid substance by straw. 2. No penetration or aspiration with the above administered substances. Please see separate speech pathology report for full discussion of findings and recommendations. [facility] RIS CONSOLIDATED EXAMINATION: MODIFIED BARIUM SWALLOW WAS PERFORMED IN CONJUNCTION WITH SPEECH PATHOLOGY SERVICES TECHNIQUE: Under fluoroscopic evaluation cineradiography/videoradio graphy recordings were performed in conjunction with the speech-language pathologist (LANDSCAPE ENGINEER). Various liquid, solid and/or semi-solid barium preparations [...] with the thin liquid substance by straw. Micah Mayen MD - 12/01/2023 EXAMINATION: MODIFIED BARIUM SWALLOW WAS PERFORMED IN CONJUNCTION WITH SPEECH PATHOLOGY SERVICES TECHNIQUE: Under fluoroscopic evaluation cineradiography/videoradio graphy recordings were performed in conjunction with the speech-language pathologist (LANDSCAPE ENGINEER). Various liquid, solid and/or semi-solid barium preparations [...] for full discussion of findings and recommendations. [facility] Radiology Study observation (narrative) [facility] FL MODIFIED BARIUM SWALLOW W VIDEOOrdered By: Micah Davis on 12-01-2023 [facility] Work Phone: Glucose,Whole Bloodon 2023 Glucose [Mass/Vol] 168 mg/dL High 75-110 [facility] Glucose [Mass/Vol] 108 mg/dL Normal 75-110 [facility] Glucose [Mass/Vol] 226 mg/dL High 75-110 [facility] Glucose [Mass/Vol] 150 mg/dL High 75-110 [facility] Glucose [Mass/Vol] 148 mg/dL High 75-110 [facility] POC Glucose Fingerstickon Glucose [Mass/Vol] 168 mg/dL High 75 - 110 mg/dL [facility] Interpretation and review of laboratory results Abnormal [facility] Glucose [Mass/Vol] 108 mg/dL 75 - 110 mg/dL [facility] Glucose [Mass/Vol] 226 mg/dL High 75 - 110 mg/dL [facility] Interpretation and review of laboratory results Abnormal [facility] Glucose [Mass/Vol] 150 mg/dL High 75 - 110 mg/dL [facility] Interpretation and review of laboratory results Abnormal [facility] Glucose [Mass/Vol] 148 mg/dL High 75 - 110 mg/dL [facility] Interpretation and review of laboratory results Abnormal [facility] PSA Screeningon 12-01-2023 Prostate specific Ag [Mass/Vol] 1.50 ng/mL 0.00 - 4.00 ng/mL [facility] Comment on above: The Saray ECLIA as say is used. Results obtained with different assay methods cannot be used interchangeably. [facility] PSA, Screeningon 12-01-2023 Prostatic Spec. Ag 1.50 ng/mL Normal 0.00-4.00 [facility] Comment on above: Result Comment: The Saray ECLIA assay is used. Results obtained with different assay methods cannot be used interchangeably. Performed By: #### P HO, CDP, RA, PT, SED, BMPX, FREDA, MG, LD, CRP, FEBC, B12FOL, PTT, C4, CCPAB, FERI, IOCAL, CORTI, CK, C3, REJEC #### [facility] [employer] [facility] [place] [address] [employer]: Jasbir Montalvo MD PTon 12-01-2023 INR Coag (PPP) [Relative time] 2.8 {INR} Normal [facility] Comment on above: Result Comment: Therapeutic Range: Moderate Anticoagulant Intensity: INR = 2.0-3.0 High Anticoagulant Intensity: INR = 2.5-3.5 Performed By: #### P HO, CDP, RA, PT, SED, BMPX, FREDA, MG, LD, CRP, FEBC, B12FOL, PTT, C4, CCPAB, FERI, IOCAL, CORTI, CK, C3, REJEC #### [employer] [address] [place] [id number] [employer] Servicer: Jasbir Montalvo MD PT Coag (PPP) [Time] 28.5 s High 11.7-14.9 [facility] Comment on above: Performed By: #### P HO, CDP, RA, PT, SED, BMPX, FREDA, MG, LD, CRP, FEBC, B12FOL, PTT, C4, CCPAB, FERI, IOCAL, CORTI, CK, C3, REJEC #### [employer] [address] [place] [id number] [employer] Servicer: Jasbir Montalvo MD Protime-INRon 12-01-2023 INR Coag (PPP) [Relative time] 2.8 {INR} [facility] Comment on above: Therapeutic Range: Moderate Anticoagulant Intensity: INR = 2.0-3.0 High Anticoagulant Intensity: INR = 2.5-3.5 Interpretation and review of laboratory results Abnormal [facility] PT Coag (PPP) [Time] 28.5 s High [facility] Troponinon 12-01-2023 Troponin, High Sens 23 ng/L High 0-22 [facility] Comment on above: Result Comment: High Sensitivity Troponin values cannot be compared with other Troponin methodologies. Performed By: #### P HO, CDP, RA, PT, SED, BMPX, FREDA, MG, LD, CRP, FEBC, B12FOL, PTT, C4, CCPAB, FERI, IOCAL, CORTI, CK, C3, REJEC #### [employer] [address] [place] [id number] [employer] Servicer: Jasbir Montalvo MD Interpretation and review of laboratory results Abnormal [facility] Troponin I.cardiac High sensitivity method [Mass/Vol] 23 ng/L High 0 - 22 ng/L [facility] Comment on above: High Sensitivity Tro ponin values cannot be compared with other Troponin methodologies. [facility] APTTon 11-30-2023 aPTT Coag (Bld) [Time] 38.4 s High 23.0-36.5 [facility] Comment on above: Result Comment: IV Heparin Therapy Range: 66.0-92.0 sec Performed By: #### P HO, CDP, RA, PT, SED, BMPX, FREDA, MG, LD, CRP, FEBC, B12FOL, PTT, C4, CCPAB, FERI, IOCAL, CORTI, CK, C3, REJEC ####[facility] [id number] [place], [place] [id number] Lab Director: Jasbir Montalvo MD aPTT Coag (Bld) [Time] 38.4 s High [facility] Comment on above: IV Heparin Therapy Range: 66.0-92.0 sec B12/Folate Panelon Cobalamin (Vitamin B12) [Mass/Vol] 397 pg/mL Normal 232-1245 [facility] Comment on above: Performed By: #### P HO, CDP, RA, PT, SED, BMPX, FREDA, MG, LD, CRP, FEBC, B12FOL, PTT, C4, CCPAB, FERI, IOCAL, CORTI, CK, C3, REJEC ####[facility] [id number] [place] [address] [id number] Lab Director: Jasbir Montalvo MD Folic Acid 6.2 ng/mL Normal >4.8 [facility] Comment on above: Performed By: #### P HO, CDP, RA, PT, SED, BMPX, FREDA, MG, LD, CRP, FEBC, B12FOL, PTT, C4, CCPAB, FERI, IOCAL, CORTI, CK, C3, REJEC ####[facility] [id number] [place] [address] [id number] Lab Director: Jasbir Montalvo MD BLOOD GAS, VENOUSon 11-30-19 Carboxyhemoglobin (Bld) [Mass fraction] 1.6 % 0 - 5 % [facility] Comment on above: Reference Range: Non-Smokers 0-2% Average Smoker 2-4% Heavy Smoker <10% HCO3 (Bld) [Moles/Vol] 26.1 mmol/L 24 - 30 mmol/L [facility] Interpretation and review of laboratory results Abnormal [facility] Negative Base Excess, Pop 1.1 mmol/L 0.0 - 2.0 mmol/L [facility] Oxygen saturation in Blood 84.3 % 60.0 - 85.0 % [facility] Oxygen/Inspired gas Respiratory system --on ventilator INFORMATION NOT PROVIDED [facility] pCO2, Pop 55.2 High [facility] pH, Pop 7.297 Low 7.320 - 7.420 [facility] pO2, Pop 55.2 High [facility] Basic Metab w/rfx MGon 11-30 Glucose [Mass/Vol] 49 mg/dL Low 70-99 [facility] Comment on above: Performed By: #### P HO, CDP, RA, PT, SED, BMPX, FREDA, MG, LD, CRP, FEBC, B12FOL, PTT, C4, CCPAB, FERI, IOCAL, CORTI, CK, C3, REJEC ####[facility] [address] [place] [address] lab Director: Jasbir Montalvo MD Anion gap [Moles/Vol] 11 mmol/L Normal 9-17 [facility] Comment on above: Performed By: #### P HO, CDP, RA, PT, SED, BMPX, FREDA, MG, LD, CRP, FEBC, B12FOL, PTT, C4, CCPAB, FERI, IOCAL, CORTI, CK, C3, REJEC ####[facility] [address] [place], [place] [id number] Lab Director: Jasbir Montalvo MD Calcium [Mass/Vol] 8.9 mg/dL Normal 8.6-10.4 [facility] Comment on above: Performed By: #### P HO, CDP, RA, PT, SED, BMPX, FREDA, MG, LD, CRP, FEBC, B12FOL, PTT, C4, CCPAB, FERI, IOCAL, CORTI, CK, C3, REJEC ####[address] [address] Lab Director: Jasbir Montalvo MD Chloride [Moles/Vol] 114 mmol/L High 98-107 [facility] Comment on above: Performed By: #### P HO, CDP, RA, PT, SED, BMPX, FREDA, MG, LD, CRP, FEBC, B12FOL, PTT, C4, CCPAB, FERI, IOCAL, CORTI, CK, C3, REJEC ####[address] [address] Lab Director: Jasbir Montalvo MD CO2 [Moles/Vol] 21 mmol/L Normal 20-31 [facility] Comment on above: Performed By: #### P HO, CDP, RA, PT, SED, BMPX, FREDA, MG, LD, CRP, FEBC, B12FOL, PTT, C4, CCPAB, FERI, IOCAL, CORTI, CK, C3, REJEC ####[address] [address] lab Director: Jasbir Montalvo MD Creatinine [Mass/Vol] 1.5 mg/dL High 0.7-1.2 [facility] Comment on above: Performed By: #### P HO, CDP, RA, PT, SED, BMPX, FREDA, MG, LD, CRP, FEBC, B12FOL, PTT, C4, CCPAB, FERI, IOCAL, CORTI, CK, C3, REJEC ####[address] [address] Lab Director: Jasbir Montalvo MD GFR/1.73 sq M.predicted among non-blacks MDRD (S/P/Bld) [Vol rate/Area] 52 mL/min/{1.73_m2} Low >60 [facility] Comment on above: Result Comment: [...] CCPAB, FERI, IOCAL, CORTI, CK, C3, REJEC ####[address] [id number] Lab Director: Jasbir Montalvo MD Potassium [Moles/Vol] 3.7 mmol/L Normal 3.7-5.3 [facility] Comment on above: Performed By: #### P HO, CDP, RA, PT, SED, BMPX, FREDA, MG, LD, CRP, FEBC, B12FOL, PTT, C4, CCPAB, FERI, IOCAL, CORTI, CK, C3, REJEC ####[address] [address] Lab Director: Jasbir Montalvo MD Sodium [Moles/Vol] 146 mmol/L High 135-144 [facility] Comment on above: Performed By: #### P HO, CDP, RA, PT, SED, BMPX, FREDA, MG, LD, CRP, FEBC, B12FOL, PTT, C4, CCPAB, FERI, IOCAL, CORTI, CK, C3, REJEC ####[address] [id number] Lab Director: Jasbir Montalvo MD Urea nitrogen [Mass/Vol] 37 mg/dL High 8-23 [facility] Comment on above: Performed By: #### P HO, CDP, RA, PT, SED, BMPX, FREDA, MG, LD, CRP, FEBC, B12FOL, PTT, C4, CCPAB, FERI, IOCAL, CORTI, CK, C3, REJEC ####[facility] [address] [place] [address] [facility] Director: Jasbir Montalvo MD Basic Metabolic Panel w/ Ref sarah to MGon 11-30-2023 Anion gap [Moles/Vol] 11 mmol/L 9 - 17 mmol/L [facility] Calcium [Mass/Vol] 8.9 mg/dL 8.6 - 10. 4 mg/dL [facility] Chloride [Moles/Vol] 114 mmol/L High 98 - 107 mmol/L [facility] CO2 [Moles/Vol] 21 mmol/L 20 - 31 mmol/L [facility] Creatinine [Mass/Vol] 1.5 mg/dL High 0.7 - 1.2 mg/dL [facility] GFR/1.73 sq M.predicted MDRD (S/P/Bld) [Vol rate/Area] 52 mL/min/{1.73_m2} Low - PINF [facility] Comment on above: These results are not [...] 49 mg/dL Low 70 - 99 mg/dL [facility] Interpretation and review of laboratory results Abnormal [facility] Potassium [Moles/Vol] 3.7 mmol/L 3.7 - 5.3 mmol/L [facility] Sodium [Moles/Vol] 146 mmol/L High 135 - 144 mmol/L [facility] Urea nitrogen [Mass/Vol] 37 mg/dL High 8 - 23 mg/dL [facility] C-Reactive Proteinon 024 CRP [Mass/Vol] 4.8 mg/L Normal 0.0-5.0 [facility] Comment on above: Performed By: #### P HO, CDP, RA, PT, SED, BMPX, FREDA, MG, LD, CRP, FEBC, B12FOL, PTT, C4, CCPAB, FERI, IOCAL, CORTI, CK, C3, REJEC #### [facility] [employer] [address] [place] [phone] [employer]: Jasbir Montalvo MD CRP High sensitivity method [Mass/Vol] 4.8 mg/L 0.0 - 5.0 mg/L [facility] C3on 11-30-2023 C3 146 mg/dL Normal 90-180 [facility] Comment on above: Performed By: #### P HO, CDP, RA, PT, SED, BMPX, FREDA, MG, LD, CRP, FEBC, B12FOL, PTT, C4, CCPAB, FERI, IOCAL, CORTI, CK, C3, REJEC #### [facility] [employer] [address] [place] [address] [employer]: Jasbir Montalvo MD C3 COMPLEMENTon 11-30-2023 Complement C3 [Mass/Vol] 146 mg/dL 90 - 180 mg/dL [facility] C4on 11-30-2023 C4 24 mg/dL Normal 10-40 [facility] Comment on above: Performed By: #### P HO, CDP, RA, PT, SED, BMPX, FREDA, MG, LD, CRP, FEBC, B12FOL, PTT, C4, CCPAB, FERI, IOCAL, CORTI, CK, C3, REJEC #### [facility] [employer] [address] [place] [address] [employer]: Jasbir Montalvo MD C4 COMPLEMENTon 11-30-2023 Complement C4 [Mass/Vol] 24 mg/dL 10 - 40 mg/dL [facility] [employer] CBC with Auto Differentialon 11-30-2023 Basophils (Bld) [#/Vol] 0.08 10*3/uL [facility] Basophils/100 WBC (Bld) 1 % 0 - 2 % [facility] Eosinophils (Bld) [#/Vol] 0.31 10*3/uL [facility] Eosinophils/100 WBC (Bld) 3 % 1 - 4 % [facility] Erythrocyte distribution width (RBC) [Ratio] 14.2 % 11.8 - 14.4 % [facility] Hematocrit (Bld) [Volume fraction] 49.3 % 40.7 - 50.3 % [facility] Hemoglobin (Bld) [Mass/Vol] 15.4 g/dL 13.0 - 17.0 g/dL [facility] Immature granulocytes (Bld) [#/Vol] [facility] Immature granulocytes/100 WBC (Bld) 0 % 0 [facility] Lymphocytes/100 WBC (Bld) 26 % 24 - 43 % [facility] Lymphocytes/100 WBC (Bld) 2.64 % [facility] MCH (RBC) [Entitic mass] 31.2 pg 25.2 - 33.5 pg [facility] MCHC (RBC) [Mass/Vol] 31.2 g/dL 28.4 - 34.8 g/dL [facility] MCV (RBC) [Entitic vol] 99.8 fL 82.6 - 102.9 fL [facility] Monocytes/100 WBC (Bld) 7 % 3 - 12 % [facility] Monocytes/100 WBC (Bld) 0.74 % [facility] Neutrophils/100 WBC (Bld) 63 % 36 - 65 % [facility] Nucleated RBC/100 WBC (Bld) [Ratio] 0.0 % 0.0 per 100 WBC [facility] Platelet mean volume (Bld) [Entitic vol] 10.0 fL 8.1 - 13.5 fL [facility] Platelets (Bld) [#/Vol] 214 10*3/uL [facility] RBC (Bld) [#/Vol] 4.94 10*6/uL 4.21 - 5.7 7 m/uL [facility] Segmented neutrophils/100 WBC (Bld) 6.30 % [facility] WBC other (Bld) [#/Vol] 10.1 [facility] CBC with Diffon 11-30-2023 Abs. Basophil 0.08 k/uL Normal 0.00-0.20 [facility] Comment on above: Performed By: #### P HO, CDP, RA, PT, SED, BMPX, FREDA, MG, LD, CRP, FEBC, B12FOL, PTT, C4, CCPAB, FERI, IOCAL, CORTI, CK, C3, REJEC #### [address] [address] [employer]: Jasbir Montalvo MD Abs.Imm.Granulocyte <0.03 Normal 0.00-0.30 [facility] Comment on above: Performed By: #### P HO, CDP, RA, PT, SED, BMPX, FREDA, MG, LD, CRP, FEBC, B12FOL, PTT, C4, CCPAB, FERI, IOCAL, CORTI, CK, C3, REJEC #### [address] [address] [employer]: Jasbir Montalvo MD Abs.Neutrophil (Seg) 6.30 k/uL Normal 1.50-8.10 [facility] Comment on above: Performed By: #### P HO, CDP, RA, PT, SED, BMPX, FREDA, MG, LD, CRP, FEBC, B12FOL, PTT, C4, CCPAB, FERI, IOCAL, CORTI, CK, C3, REJEC #### [address] [address] [employer]: Jasbir Montalvo MD Basophils/100 WBC (Bld) 1 % Normal 0-2 [facility] Comment on above: Performed By: #### P HO, CDP, RA, PT, SED, BMPX, FREDA, MG, LD, CRP, FEBC, B12FOL, PTT, C4, CCPAB, FERI, IOCAL, CORTI, CK, C3, REJEC #### [address] [address] [employer]: Jasbir Montalvo MD Eosinophils (Bld) [#/Vol] 0.31 10*3/uL Normal 0.00-0.44 [facility] Comment on above: Performed By: #### P HO, CDP, RA, PT, SED, BMPX, FREDA, MG, LD, CRP, FEBC, B12FOL, PTT, C4, CCPAB, FERI, IOCAL, CORTI, CK, C3, REJEC #### [address] [address] [employer]: Jasbir Montalvo MD Eosinophils/100 WBC (Bld) 3 % Normal 1-4 [facility] Comment on above: Performed By: #### P HO, CDP, RA, PT, SED, BMPX, FREDA, MG, LD, CRP, FEBC, B12FOL, PTT, C4, CCPAB, FERI, IOCAL, CORTI, CK, C3, REJEC #### [address] [address] [employer]: Jasbir Montalvo MD Erythrocyte distribution width (RBC) [Ratio] 14.2 % Normal 11.8-14.4 [facility] Comment on above: Performed By: #### P HO, CDP, RA, PT, SED, BMPX, FREDA, MG, LD, CRP, FEBC, B12FOL, PTT, C4, CCPAB, FERI, IOCAL, CORTI, CK, C3, REJEC #### [address] [address] [employer]: Jasbir Montalvo MD Hematocrit (Bld) [Volume fraction] 49.3 % Normal 40.7-50.3 [facility] Comment on above: Performed By: #### P HO, CDP, RA, PT, SED, BMPX, FREDA, MG, LD, CRP, FEBC, B12FOL, PTT, C4, CCPAB, FERI, IOCAL, CORTI, CK, C3, REJEC #### [address] [address] [employer]: Jasbir Montalvo MD Hemoglobin (Bld) [Mass/Vol] 15.4 g/dL Normal 13.0-17.0 [facility] Comment on above: Performed By: #### P HO, CDP, RA, PT, SED, BMPX, FREDA, MG, LD, CRP, FEBC, B12FOL, PTT, C4, CCPAB, FERI, IOCAL, CORTI, CK, C3, REJEC #### [address] [address] [employer]: Jasbir Montalvo MD Immature granulocytes/100 WBC (Bld) 0 % Normal 0 [facility] Comment on above: Performed By: #### P HO, CDP, RA, PT, SED, BMPX, FREDA, MG, LD, CRP, FEBC, B12FOL, PTT, C4, CCPAB, FERI, IOCAL, CORTI, CK, C3, REJEC #### [address] [address] [employer]: Jasbir Montalvo MD Lymphocytes (Bld) [#/Vol] 2.64 10*3/uL Normal 1.10-3.70 [facility] Comment on above: Performed By: #### P HO, CDP, RA, PT, SED, BMPX, FREDA, MG, LD, CRP, FEBC, B12FOL, PTT, C4, CCPAB, FERI, IOCAL, CORTI, CK, C3, REJEC #### [address] [address] [employer]: Jasbir Montalvo MD Lymphocytes/100 WBC (Bld) 26 % Normal 24-43 [facility] Comment on above: Performed By: #### P HO, CDP, RA, PT, SED, BMPX, FREDA, MG, LD, CRP, FEBC, B12FOL, PTT, C4, CCPAB, FERI, IOCAL, CORTI, CK, C3, REJEC #### [address] [address] [employer]: Jasbir Montalvo MD MCH (RBC) [Entitic mass] 31.2 pg Normal 25.2-33.5 [facility] Comment on above: Performed By: #### P HO, CDP, RA, PT, SED, BMPX, FREDA, MG, LD, CRP, FEBC, B12FOL, PTT, C4, CCPAB, FERI, IOCAL, CORTI, CK, C3, REJEC #### [address] [address] [employer]: Jasbir Montalvo MD MCHC (RBC) [Mass/Vol] 31.2 g/dL Normal 28.4-34.8 [facility] Comment on above: Performed By: #### P HO, CDP, RA, PT, SED, BMPX, FREDA, MG, LD, CRP, FEBC, B12FOL, PTT, C4, CCPAB, FERI, IOCAL, CORTI, CK, C3, REJEC #### [address] [address] [employer]: Jasbir Montalvo MD MCV (RBC) [Entitic vol] 99.8 fL Normal 82.6-102.9 [facility] Comment on above: Performed By: #### P HO, CDP, RA, PT, SED, BMPX, FREDA, MG, LD, CRP, FEBC, B12FOL, PTT, C4, CCPAB, FERI, IOCAL, CORTI, CK, C3, REJEC #### [address] [address] [employer]: Jasbir Montalvo MD Monocytes (Bld) [#/Vol] 0.74 10*3/uL Normal 0.10-1.20 [facility] Comment on above: Performed By: #### P HO, CDP, RA, PT, SED, BMPX, FREDA, MG, LD, CRP, FEBC, B12FOL, PTT, C4, CCPAB, FERI, IOCAL, CORTI, CK, C3, REJEC #### [address] [address] [employer]: Jasbir Montalvo MD Monocytes/100 WBC (Bld) 7 % Normal 3-12 [facility] Comment on above: Performed By: #### P HO, CDP, RA, PT, SED, BMPX, FREDA, MG, LD, CRP, FEBC, B12FOL, PTT, C4, CCPAB, FERI, IOCAL, CORTI, CK, C3, REJEC #### [address] [address] [employer]: Jasbir Montalvo MD Neutrophil (Seg) 63 % Normal 36-65 [facility] Comment on above: Performed By: #### P HO, CDP, RA, PT, SED, BMPX, FREDA, MG, LD, CRP, FEBC, B12FOL, PTT, C4, CCPAB, FERI, IOCAL, CORTI, CK, C3, REJEC #### [address] [address] [employer]: Jasbir Montalvo MD NRBC Automated 0.0 per 100 WBC Normal 0.0 [facility] Comment on above: Performed By: #### P HO, CDP, RA, PT, SED, BMPX, FREDA, MG, LD, CRP, FEBC, B12FOL, PTT, C4, CCPAB, FERI, IOCAL, CORTI, CK, C3, REJEC #### [address] [address] [employer]: Jasbir Montalvo MD Platelet mean volume (Bld) [Entitic vol] 10.0 fL Normal 8.1-13.5 [facility] Comment on above: Performed By: #### P HO, CDP, RA, PT, SED, BMPX, FREDA, MG, LD, CRP, FEBC, B12FOL, PTT, C4, CCPAB, FERI, IOCAL, CORTI, CK, C3, REJEC #### [address] [address] [employer]: Jasbir Montalvo MD Platelets (Bld) [#/Vol] 214 10*3/uL Normal 138-453 [facility] Comment on above: Performed By: #### P HO, CDP, RA, PT, SED, BMPX, FREDA, MG, LD, CRP, FEBC, B12FOL, PTT, C4, CCPAB, FERI, IOCAL, CORTI, CK, C3, REJEC #### [address] [id number] [employer]: Jasbir Montalvo MD RBC (Bld) [#/Vol] 4.94 10*6/uL Normal 4.21-5.77 [facility] Comment on above: Performed By: #### P HO, CDP, RA, PT, SED, BMPX, FREDA, MG, LD, CRP, FEBC, B12FOL, PTT, C4, CCPAB, FERI, IOCAL, CORTI, CK, C3, REJEC #### [address] [id number] [employer]: Jasbir Montalvo MD WBC (Bld) [#/Vol] 10.1 10*3/uL Normal 3.5-11.3 [facility] Comment on above: Performed By: #### P HO, CDP, RA, PT, SED, BMPX, FREDA, MG, LD, CRP, FEBC, B12FOL, PTT, C4, CCPAB, FERI, IOCAL, CORTI, CK, C3, REJEC #### [address] [id number] [employer]: Jasbir Montalvo MD [facility] CK [Catalytic activity/Vol] 69 U/L 39 - 308 U/L [facility] CT LUMBAR SPINE WO CONTRASTo n 11-30-2023 [...] Shanthi Mcdonough MD 11/30/23 Final result Normal [facility] CT THORACIC SPINE WO CONTRAS Ton 11-30-2023 [...] Shanthi Mcdonough MD 11/30/23 Final result Normal [facility] Calcium, Ionicon 11-30-2023 Calcium [Moles/Vol] 1.21 mmol/L Normal 1.13-1.33 [facility] Comment on above: Performed By: #### P HO, CDP, RA, PT, SED, BMPX, FREDA, MG, LD, CRP, FEBC, B12FOL, PTT, C4, CCPAB, FERI, IOCAL, CORTI, CK, C3, REJEC ####[facility] SouthOncoGenexPmmblncjslzd[address] [place] [address] [id number] Lab Director: Jasbir Montalvo MD Calcium, Ionizedon Calcium.ionized (Bld) [Moles/Vol] 1.21 mmol/L 1.13 - 1.33 mmol/L [facility] Cortisolon 11-30-2023 Cortisol 15.5 ug/dL Normal 2.7-18.4 [facility] Comment on above: Result Comment: Cortisol Reference Range: AM 6.0-18.4 PM 2.7-10.5 Performed By: #### P HO, CDP, RA, PT, SED, BMPX, FREDA, MG, LD, CRP, FEBC, B12FOL, PTT, C4, CCPAB, FERI, IOCAL, CORTI, CK, C3, REJEC #### [employer] [address] [place] [address] [phone] [employer]: Jasbir Montalvo MD Cortisol Totalon 11-30-2023 Cortisol [Mass/Vol] 15.5 ug/dL 2.7 - 18 .4 ug/dL [facility] Comment on above: Cortisol Reference Range: AM 6.0-18.4 PM 2.7-10.5 Creatine Kinaseon 11-30-2023 CK [Catalytic activity/Vol] 69 U/L Normal 39-308 [facility] Comment on above: Performed By: #### P HO, CDP, RA, PT, SED, BMPX, FREDA, MG, LD, CRP, FEBC, B12FOL, PTT, C4, CCPAB, FERI, IOCAL, CORTI, CK, C3, REJEC #### [facility] [address] [place] [address] [phone] [employer]: Jasbir Montalvo MD Ferritinon 11-30-2023 Ferritin [Mass/Vol] 151 ng/mL Normal 30-400 [facility] Comment on above: Performed By: #### P HO, CDP, RA, PT, SED, BMPX, FREDA, MG, LD, CRP, FEBC, B12FOL, PTT, C4, CCPAB, FERI, IOCAL, CORTI, CK, C3, REJEC #### [employer] [address] [place] [phone] [employer]: Jasbir Montalvo MD Ferritin [Mass/Vol] 151 ng/mL 30 - 400 ng/mL [facility] Glucose,Whole Bloodon 2023 Glucose [Mass/Vol] 231 mg/dL High 75-110 [facility] Glucose [Mass/Vol] 98 mg/dL Normal 75-110 [facility] Glucose [Mass/Vol] 154 mg/dL High 75-110 [facility] Glucose [Mass/Vol] 137 mg/dL High 75-110 [facility] Glucose [Mass/Vol] 55 mg/dL Low 75-110 [facility] Glucose [Mass/Vol] 48 mg/dL Low 75-110 [facility] Comment on above: Result Comment: Evaristo cannon Noted Iron Binding Cap.on 11-30-19 24 % Fe Saturation 24 % Normal 20-55 [facility] Comment on above: Performed By: #### P HO, CDP, RA, PT, SED, BMPX, FREDA, MG, LD, CRP, FEBC, B12FOL, PTT, C4, CCPAB, FERI, IOCAL, CORTI, CK, C3, REJEC #### [employer] [address] [place] [phone] [employer]: Jasbir Montalvo MD Iron [Mass/Vol] 54 ug/dL Low 59-158 [facility] Comment on above: Performed By: #### P HO, CDP, RA, PT, SED, BMPX, FREDA, MG, LD, CRP, FEBC, B12FOL, PTT, C4, CCPAB, FERI, IOCAL, CORTI, CK, C3, REJEC #### [employer] [address] [place] [phone] [employer]: Jasbir Montalvo MD Total Fe Binding Cap 224 ug/dL Low 250-450 [facility] Comment on above: Performed By: #### P HO, CDP, RA, PT, SED, BMPX, FREDA, MG, LD, CRP, FEBC, B12FOL, PTT, C4, CCPAB, FERI, IOCAL, CORTI, CK, C3, REJEC #### [employer] [address] [place] [address] [employer]: Jasbir Montalvo MD Unbound Fe Bind Cap 170 ug/dL Normal 112-347 [facility] Comment on above: Performed By: #### P HO, CDP, RA, PT, SED, BMPX, FREDA, MG, LD, CRP, FEBC, B12FOL, PTT, C4, CCPAB, FERI, IOCAL, CORTI, CK, C3, REJEC #### [facility] [employer] [address] [place] [phone] [employer]: Jasbir Montalvo MD Iron and TIBCon 11-30-2023 Interpretation and review of laboratory results Abnormal [facility] Iron [Mass/Vol] 54 ug/dL Low 59 - 158 ug/dL [facility] Iron binding capacity [Mass/Vol] 224 ug/dL Low 250 - 450 ug/dL [facility] Iron saturation [Mass fraction] 24 % 20 - 55 % [facility] UIBC 170 ug/dL 112 - 347 ug/dL [facility] Lactate Dehydrogenaseon 11-07 LDH [Catalytic activity/Vol] 243 U/L High 135-225 [facility] Comment on above: Performed By: #### P HO, CDP, RA, PT, SED, BMPX, FREDA, MG, LD, CRP, FEBC, B12FOL, PTT, C4, CCPAB, FERI, IOCAL, CORTI, CK, C3, REJEC #### [facility] [employer] [address] [place] [phone] [employer]: Jasbir Montalvo MD LDH [Catalytic activity/Vol] 243 U/L High 135 - 225 U/L [facility] Magnesiumon 11-30-2023 Magnesium [Mass/Vol] 2.7 mg/dL High 1.6-2.6 [facility] Comment on above: Performed By: #### P HO, CDP, RA, PT, SED, BMPX, FREDA, MG, LD, CRP, FEBC, B12FOL, PTT, C4, CCPAB, FERI, IOCAL, CORTI, CK, C3, REJEC ####[facility] [address] [place], [place] [id number] lab Director: Jasbir Montalvo MD Magnesium [Mass/Vol] 2.7 mg/dL High 1.6 - 2.6 mg/dL [facility] Myoglobinon 11-30-2023 Myoglobin [Mass/Vol] 59 ng/mL Normal 28-72 [facility] Comment on above: Performed By: #### P HO, CDP, RA, PT, SED, BMPX, FREDA, MG, LD, CRP, FEBC, B12FOL, PTT, C4, CCPAB, FERI, IOCAL, CORTI, CK, C3, REJEC ####[place] [id number] [place], [place] [id number] lab Director: Jasbir Montalvo MD Myoglobin, Bloodon Myoglobin [Mass/Vol] 59 ng/mL 28 - 72 ng/mL [facility] No Panel Informationon 11-[address] [facility] [address] thoracic spine: M ild dextroscoliotic curvature. No acute fracture or traumatic malalignment. Chronic anterior loss in height of T10 of 15%. CT lumbar spine: No acute fracture or traumatic malalignment. Mild levo scoliotic curvature. Degenerative and degenerative disc changes L3 through S1. PN RIS CONSOLIDATED EXAMINATION: CT OF THE THORACIC [...] SOFT TISSUES/RETROPERITONEUM: No paraspinal mass is seen. [facility] RIS CONSOLIDATED Shanthi Mcdonough MD - 11/30/2023 EXAMINATION: CT OF THE [...] and degenerative disc changes L3 through S1. [facility] [place] Radiology Study observation (narrative) [facility] Interpretation and review of laboratory results Abnormal [facility] MedicalAT[facility]ENTERLightpoint MedicalAD[facility] Interpretation and review of laboratory results Abnormal [facility] MedicalAT[facility] [place] No Panel InformationOrdered By: Shanthi Mcdonough on 11-30-2023 [facility] [place] Work Phone: POC Glucose Fingerstickon Glucose [Mass/Vol] 231 mg/dL High 75 - 110 mg/dL [facility] MedicalAD[facility] Interpretation and review of laboratory results Abnormal [facility] Glucose [Mass/Vol] 98 mg/dL 75 - 110 mg/dL [facility] MedicalAT[facility]ENTERLightpoint MedicalAD[facility] Glucose [Mass/Vol] 154 mg/dL High 75 - 110 mg/dL [facility] Interpretation and review of laboratory results Abnormal [facility] Glucose [Mass/Vol] 137 mg/dL High 75 - 110 mg/dL [facility] Interpretation and review of laboratory results Abnormal [facility] Glucose [Mass/Vol] 55 mg/dL Low 75 - 110 mg/dL [facility] Interpretation and review of laboratory results Abnormal [facility] Glucose [Mass/Vol] 48 mg/dL Low 75 - 110 mg/dL [facility] Comment on above: Critical Noted Interpretation and review of laboratory results Abnormal [facility] PTon 11-30-2023 INR Coag (PPP) [Relative time] 3.0 {INR} Normal [facility] Comment on above: Result Comment: Therapeutic Range: Moderate Anticoagulant Intensity: INR = 2.0-3.0 High Anticoagulant Intensity: INR = 2.5-3.5 Performed By: #### P HO, CDP, RA, PT, SED, BMPX, FREDA, MG, LD, CRP, FEBC, B12FOL, PTT, C4, CCPAB, FERI, IOCAL, CORTI, CK, C3, REJEC ####[facility] [id number] [place] [address] lab Director: Jasbir Montalvo MD PT Coag (PPP) [Time] 30.0 s High 11.7-14.9 [facility] Comment on above: Performed By: #### P HO, CDP, RA, PT, SED, BMPX, FREDA, MG, LD, CRP, FEBC, B12FOL, PTT, C4, CCPAB, FERI, IOCAL, CORTI, CK, C3, REJEC ####[facility] [id number] [place] [id number] lab Director: Jasbir Montalvo MD Phosphoruson 11-30-2023 Phosphate [Mass/Vol] 3.5 mg/dL 2.5 - 4.5 mg/dL [facility] Phosphorus, Inorg.on 024 Phosphorus, Inorg. 3.5 mg/dL Normal 2.5-4.5 [facility] Comment on above: Performed By: #### P HO, CDP, RA, PT, SED, BMPX, FREDA, MG, LD, CRP, FEBC, B12FOL, PTT, C4, CCPAB, FERI, IOCAL, CORTI, CK, C3, REJEC ####[facility] [address] [place], [place] [id number] lab Director: Jasbir Montalvo MD Protime-INRon 11-30-2023 INR Coag (PPP) [Relative time] 3.0 {INR} [facility] Comment on above: Therapeutic Range: Moderate Anticoagulant Intensity: INR = 2.0-3.0 High Anticoagulant Intensity: INR = 2.5-3.5 PT Coag (PPP) [Time] 30.0 s High [facility] RA Screenon 11-30-2023 RA Screen <10 Normal <14 [facility] Comment on above: Performed By: #### P HO, CDP, RA, PT, SED, BMPX, FREDA, MG, LD, CRP, FEBC, B12FOL, PTT, C4, CCPAB, FERI, IOCAL, CORTI, CK, C3, REJEC ####[facility] [address] [place], [place] [id number] lab Director: Jasbir Montalvo MD RHEUMATOID FACTORon 11-30-19 24 Rheumatoid factor Nephelometry Qn (S) <10 NINF [facility] Sedimentation Rateon 024 Sedimentation Rate 18 mm/Hr Normal 0-20 [facility] Comment on above: Performed By: #### P HO, CDP, RA, PT, SED, BMPX, FREDA, MG, LD, CRP, FEBC, B12FOL, PTT, C4, CCPAB, FERI, IOCAL, CORTI, CK, C3, REJEC ####[facility] [address] [place] [address] [id number] lab Director: Jasbir Montalvo MD ESR Photometric method (Bld) [Velocity] 18 [facility] Specimen Rejectionon 024 Reason for rejection Unable to perform testing: Specimen quantity not sufficient. [facility] Comment on above: Performed By: #### P HO, CDP, RA, PT, SED, BMPX, FREDA, MG, LD, CRP, FEBC, B12FOL, PTT, C4, CCPAB, FERI, IOCAL, CORTI, CK, C3, REJEC #### [address] [id number] [employer]: Jasbir Montalvo MD Source of sample .BLOOD Normal [facility] Comment on above: Performed By: #### P HO, CDP, RA, PT, SED, BMPX, FREDA, MG, LD, CRP, FEBC, B12FOL, PTT, C4, CCPAB, FERI, IOCAL, CORTI, CK, C3, REJEC #### [address] [id number] [employer]: Jasbir Montalvo MD Test ordered [facility] Comment on above: Performed By: #### P HO, CDP, RA, PT, SED, BMPX, FREDA, MG, LD, CRP, FEBC, B12FOL, PTT, C4, CCPAB, FERI, IOCAL, CORTI, CK, C3, REJEC #### [address] [id number] [employer]: Jasbir Montalvo MD T. PALLIDUM ABon 11-30-2023 T. pallidum Ab IA Ql (S) Non-Reactive NONREACTIVE [facility] Comment on above: T. pallidum antibodies are not detected. There is no serological evidence of infection with T. pallidum (early primary syphilis cannot be excluded). Retest in 2-4 weeks if syphilis is clinically suspect. [facility] T.pallidum Ab Screenon 11-30 T.pallidum Ab Screen Non-Reactive Normal [facility] Comment on above: Result Comment: T. pallidum antibodies are not detected. There is no serological evidence of infection with T. pallidum (early primary syphilis cannot be excluded). Retest in 2-4 weeks if syphilis is clinically suspect. Performed By: #### P HO, CDP, RA, PT, SED, BMPX, FREDA, MG, LD, CRP, FEBC, B12FOL, PTT, C4, CCPAB, FERI, IOCAL, CORTI, CK, C3, REJEC #### [facility] [employer] [address] [place] [id number] [employer]: Jasbir Montalvo MD TSH w/reflex to FT4on 2023 Thyroid Stim. Horm. 0.36 uIU/mL Normal 0.30-5.00 [facility] Comment on above: Performed By: #### P HO, CDP, RA, PT, SED, BMPX, FREDA, MG, LD, CRP, FEBC, B12FOL, PTT, C4, CCPAB, FERI, IOCAL, CORTI, CK, C3, REJEC #### [facility] [employer] [address] [place] [address] [phone] [employer]: Jasbir Montalvo MD TSH with Reflexon 11-30-2023 TSH Qn 0.36 m[IU]/L [facility] Venous Blood Gaseson 024 Body Temp. 37.0 Normal [facility] Comment on above: Performed By: #### P HO, CDP, RA, PT, SED, BMPX, FREDA, MG, LD, CRP, FEBC, B12FOL, PTT, C4, CCPAB, FERI, IOCAL, CORTI, CK, C3, REJEC #### [facility] [employer] [address] [place] [address] [employer]: Jasbir Montalvo MD Carboxy Hgb 1.6 % Normal 0-5 [facility] Comment on above: Result Comment: Reference Range: Non-Smokers 0-2% Average Smoker 2-4% Heavy Smoker <10% Performed By: #### P HO, CDP, RA, PT, SED, BMPX, FREDA, MG, LD, CRP, FEBC, B12FOL, PTT, C4, CCPAB, FERI, IOCAL, CORTI, CK, C3, REJEC #### [address] [address] [employer]: Jasbir Montalvo MD FIO2 INFORMATION NOT PROVIDED Normal [facility] Comment on above: Performed By: #### P HO, CDP, RA, PT, SED, BMPX, FREDA, MG, LD, CRP, FEBC, B12FOL, PTT, C4, CCPAB, FERI, IOCAL, CORTI, CK, C3, REJEC #### [address] [address] [employer]: Jasbir Montalvo MD HCO3 (Bld) [Moles/Vol] 26.1 mmol/L Normal 24-30 [facility] Comment on above: Performed By: #### P HO, CDP, RA, PT, SED, BMPX, FREDA, MG, LD, CRP, FEBC, B12FOL, PTT, C4, CCPAB, FERI, IOCAL, CORTI, CK, C3, REJEC #### [address] [address] [employer]: Jasbir Montalvo MD Negative Base Excess 1.1 mmol/L Normal 0.0-2.0 [facility] Comment on above: Performed By: #### P HO, CDP, RA, PT, SED, BMPX, FREDA, MG, LD, CRP, FEBC, B12FOL, PTT, C4, CCPAB, FERI, IOCAL, CORTI, CK, C3, REJEC #### [address] [address] [employer]: Jasbir Montalvo MD Oxygen saturation in Blood 84.3 % Normal 60.0-85.0 [facility] Comment on above: Performed By: #### P HO, CDP, RA, PT, SED, BMPX, FREDA, MG, LD, CRP, FEBC, B12FOL, PTT, C4, CCPAB, FERI, IOCAL, CORTI, CK, C3, REJEC #### [address] [address] [employer]: Jasbir Montalvo MD pCO2 55.2 mm Hg High 39-55 [facility] Comment on above: Performed By: #### P HO, CDP, RA, PT, SED, BMPX, FREDA, MG, LD, CRP, FEBC, B12FOL, PTT, C4, CCPAB, FERI, IOCAL, CORTI, CK, C3, REJEC #### [address] [id number] [employer]: Jasbir Montalvo MD pH (Bld) 7.297 [pH] Low 7.320-7.420 [facility] Comment on above: Performed By: #### P HO, CDP, RA, PT, SED, BMPX, FREDA, MG, LD, CRP, FEBC, B12FOL, PTT, C4, CCPAB, FERI, IOCAL, CORTI, CK, C3, REJEC #### [address] [address] [employer]: Jasbir Montalvo MD pO2 55.2 mm Hg High 30-50 [facility] Comment on above: Performed By: #### P HO, CDP, RA, PT, SED, BMPX, FREDA, MG, LD, CRP, FEBC, B12FOL, PTT, C4, CCPAB, FERI, IOCAL, CORTI, CK, C3, REJEC #### [address] [id number] [employer]: Jasbir Montalvo MD Vitamin B12 & Folateon 11-30 Cobalamin (Vitamin B12) [Mass/Vol] 397 pg/mL 232 - 1245 pg/mL [facility] [employer] Folate [Mass/Vol] 6.2 ng/mL 4.8 - PINF ng/mL [facility] [employer] [facility] [employer] CT HEAD WO CONTRASTon 2023 CT HEAD [...] Nathaly Oh MD 11/29/23 Final result Normal [facility] Comp Metabolic Pr/rfx MGon 0 11-29-2023 AST [Catalytic activity/Vol] 18 U/L Normal <40 [facility] Comment on above: Performed By: #### P HO, CDP, RA, PT, SED, BMPX, FREDA, MG, LD, CRP, FEBC, B12FOL, PTT, C4, CCPAB, FERI, IOCAL, CORTI, CK, C3, REJEC #### [facility] [employer] [address] [place] [address] [employer]: Jasbir Montalvo MD Albumin [Mass/Vol] 3.4 g/dL Low 3.5-5.2 [facility] Comment on above: Performed By: #### P HO, CDP, RA, PT, SED, BMPX, FREDA, MG, LD, CRP, FEBC, B12FOL, PTT, C4, CCPAB, FERI, IOCAL, CORTI, CK, C3, REJEC #### [address] [id number] [employer]: Jasbir Montalvo MD Albumin/Glob Ratio 1.1 Normal 1.0-2.5 [facility] Comment on above: Performed By: #### P HO, CDP, RA, PT, SED, BMPX, FREDA, MG, LD, CRP, FEBC, B12FOL, PTT, C4, CCPAB, FERI, IOCAL, CORTI, CK, C3, REJEC #### [address] [id number] [employer]: Jasbir Montalvo MD Alkaline Phos 93 U/L Normal 40-129 [facility] Comment on above: Performed By: #### P HO, CDP, RA, PT, SED, BMPX, FREDA, MG, LD, CRP, FEBC, B12FOL, PTT, C4, CCPAB, FERI, IOCAL, CORTI, CK, C3, REJEC #### [address] [id number] [employer]: Jasbir Montalvo MD ALT [Catalytic activity/Vol] 14 U/L Normal 5-41 [facility] Comment on above: Performed By: #### P HO, CDP, RA, PT, SED, BMPX, FREDA, MG, LD, CRP, FEBC, B12FOL, PTT, C4, CCPAB, FERI, IOCAL, CORTI, CK, C3, REJEC #### [address] [address] [employer]: Jasbir Montalvo MD Anion gap [Moles/Vol] 11 mmol/L Normal 9-17 [facility] Comment on above: Performed By: #### P HO, CDP, RA, PT, SED, BMPX, FREDA, MG, LD, CRP, FEBC, B12FOL, PTT, C4, CCPAB, FERI, IOCAL, CORTI, CK, C3, REJEC #### [address] [address] [employer]: Jasbir Montalvo MD Bilirubin [Mass/Vol] 0.3 mg/dL Normal 0.3-1.2 [facility] Comment on above: Performed By: #### P HO, CDP, RA, PT, SED, BMPX, FREDA, MG, LD, CRP, FEBC, B12FOL, PTT, C4, CCPAB, FERI, IOCAL, CORTI, CK, C3, REJEC #### [address] [address] [employer]: Jasbir Montalvo MD Calcium [Mass/Vol] 8.9 mg/dL Normal 8.6-10.4 [facility] Comment on above: Performed By: #### P HO, CDP, RA, PT, SED, BMPX, FREDA, MG, LD, CRP, FEBC, B12FOL, PTT, C4, CCPAB, FERI, IOCAL, CORTI, CK, C3, REJEC #### [address] [address] [employer]: Jasbir Montalvo MD Chloride [Moles/Vol] 109 mmol/L High 98-107 [facility] Comment on above: Performed By: #### P HO, CDP, RA, PT, SED, BMPX, FREDA, MG, LD, CRP, FEBC, B12FOL, PTT, C4, CCPAB, FERI, IOCAL, CORTI, CK, C3, REJEC #### [address] [address] [employer]: Jasbir Montalvo MD CO2 [Moles/Vol] 24 mmol/L Normal 20-31 [facility] Comment on above: Performed By: #### P HO, CDP, RA, PT, SED, BMPX, FREDA, MG, LD, CRP, FEBC, B12FOL, PTT, C4, CCPAB, FERI, IOCAL, CORTI, CK, C3, REJEC #### [address] [address] [employer]: Jasbir Montalvo MD Creatinine [Mass/Vol] 1.6 mg/dL High 0.7-1.2 [facility] Comment on above: Performed By: #### P HO, CDP, RA, PT, SED, BMPX, FREDA, MG, LD, CRP, FEBC, B12FOL, PTT, C4, CCPAB, FERI, IOCAL, CORTI, CK, C3, REJEC #### [address] [address] [employer]: Jasbir Montalvo MD GFR/1.73 sq M.predicted among non-blacks MDRD (S/P/Bld) [Vol rate/Area] 48 mL/min/{1.73_m2} Low >60 [facility] Comment on above: Result Comment: [...] FERI, IOCAL, CORTI, CK, C3, REJEC #### [place] [id number] [place] [address] [employer]: Jasbir Montalvo MD Glucose [Mass/Vol] 151 mg/dL High 70-99 [facility] Comment on above: Performed By: #### P HO, CDP, RA, PT, SED, BMPX, FREDA, MG, LD, CRP, FEBC, B12FOL, PTT, C4, CCPAB, FERI, IOCAL, CORTI, CK, C3, REJEC #### [address] [address] [employer]: Jasbir Montalvo MD Potassium [Moles/Vol] 4.1 mmol/L Normal 3.7-5.3 [facility] Comment on above: Performed By: #### P HO, CDP, RA, PT, SED, BMPX, FREDA, MG, LD, CRP, FEBC, B12FOL, PTT, C4, CCPAB, FERI, IOCAL, CORTI, CK, C3, REJEC #### [address] [address] [employer]: Jasbir Montalvo MD Protein [Mass/Vol] 6.5 g/dL Normal 6.4-8.3 [facility] Comment on above: Performed By: #### P HO, CDP, RA, PT, SED, BMPX, FREDA, MG, LD, CRP, FEBC, B12FOL, PTT, C4, CCPAB, FERI, IOCAL, CORTI, CK, C3, REJEC #### [address] [address] [employer]: Jasbir Montalvo MD Sodium [Moles/Vol] 144 mmol/L Normal 135-144 [facility] Comment on above: Performed By: #### P HO, CDP, RA, PT, SED, BMPX, FREDA, MG, LD, CRP, FEBC, B12FOL, PTT, C4, CCPAB, FERI, IOCAL, CORTI, CK, C3, REJEC #### [address] [address] [employer]: Jasbir Montalvo MD Urea nitrogen [Mass/Vol] 36 mg/dL High 8-23 [facility] Comment on above: Performed By: #### P HO, CDP, RA, PT, SED, BMPX, FREDA, MG, LD, CRP, FEBC, B12FOL, PTT, C4, CCPAB, FERI, IOCAL, CORTI, CK, C3, REJEC #### [facility] [address] [place] [address] [employer]: Jasbir Montalvo MD Comprehensive Metabolic Pane l w/ Reflex to MGon 11-29-2023 Albumin [Mass/Vol] 3.4 g/dL Low 3.5 - 5.2 g/dL [facility] [employer] Albumin/Globulin [Mass ratio] 1.1 {ratio} 1.0 - 2.5 [facility] [employer] ALP [Catalytic activity/Vol] 93 U/L 40 - 129 U/L [facility] [employer] ALT [Catalytic activity/Vol] 14 U/L 5 - 41 U/L [facility] Anion gap [Moles/Vol] 11 mmol/L 9 - 17 mmol/L [facility] AST [Catalytic activity/Vol] 18 U/L NINF - 40 U/L [facility] [employer] Bilirubin [Mass/Vol] 0.3 mg/dL 0.3 - 1.2 mg/dL [facility] [employer] Calcium [Mass/Vol] 8.9 mg/dL 8.6 - 10. 4 mg/dL [facility] [employer] Chloride [Moles/Vol] 109 mmol/L High 98 - 107 mmol/L [facility] [employer] CO2 [Moles/Vol] 24 mmol/L 20 - 31 mmol/L [facility] Creatinine [Mass/Vol] 1.6 mg/dL High 0.7 - 1.2 mg/dL [facility] GFR/1.73 sq M.predicted MDRD (S/P/Bld) [Vol rate/Area] 48 mL/min/{1.73_m2} Low - PINF [facility] [employer] Comment on above: These results are not [...] 151 mg/dL High 70 - 99 mg/dL [facility] Interpretation and review of laboratory results Abnormal [facility] Potassium [Moles/Vol] 4.1 mmol/L 3.7 - 5.3 mmol/L [facility] Protein [Mass/Vol] 6.5 g/dL 6.4 - 8.3 g/dL [facility] Sodium [Moles/Vol] 144 mmol/L 135 - 144 mmol/L [facility] Urea nitrogen [Mass/Vol] 36 mg/dL High 8 - 23 mg/dL [facility] Glucose, Whole Bloodon 11-29 Glucose [Mass/Vol] 169 mg/dL High 74-100 [facility] Glucose [Mass/Vol] 236 mg/dL High 74-100 [facility] Glucose [Mass/Vol] 116 mg/dL High 74-100 [facility] Glucose [Mass/Vol] 123 mg/dL High 74-100 [facility] Glucose [Mass/Vol] 53 mg/dL Low 74-100 [facility] Glucose [Mass/Vol] 62 mg/dL Low 74-100 [facility] Glucose,Whole Bloodon 2023 Glucose [Mass/Vol] 161 mg/dL High 75-110 [facility] POC Glucose Fingerstickon Glucose [Mass/Vol] 161 mg/dL High 75 - 110 mg/dL [facility] Interpretation and review of laboratory results Abnormal [facility] XR CHEST (2 VW)on 11-29-2023 XR CHEST [...] Nathaly Oh MD 11/29/23 Final result Normal [facility] RADHA Screen w/reflexon 2023 RADHA Screen Negative Normal NEG [facility] Comment on above: Performed By: #### A XUAN, GLYHGB, CRP, SED, PE, CDP, TSHX, HIVCMB, CK, ANAX, CP, B12FOL, VD25, AHCV #### [facility] [employer] [address] [place] [address] [employer]: Jasbir Montalvo MD #### GERALD ALYARP #### [facility] [employer] [address] [place] [address] [employer]: Samuel Olivia MD Anti-dsDNA 6.0 IU/mL Normal <10.0 [facility] Comment on above: Result Comment: Reference Range: <10.0 Negative 10.0-15.0 Equivocal >15.0 Positive Performed By: #### A XUAN, GLYHGB, CRP, SED, PE, CDP, TSHX, HIVCMB, CK, ANAX, CP, B12FOL, VD25, AHCV #### [address] [phone] [employer]: Jasbir Montalvo MD #### PACHECO DUARTE #### [address] [address] [employer]: Samuel Olivia MD XUAN Screen 0.2 U/mL Normal <0.7 [facility] Comment on above: Result Comment: Reference Range: <0.7 Negative 0.7-1.0 Equivocal >1.0 Positive XUAN Screen includes U1RNP,RNP70,Sm,Ro(SS-A),La(SS-B),CENP,Scl-70,[place]ina-1 Performed By: #### A XUAN, GLYHGB, CRP, SED, PE, CDP, TSHX, HIVCMB, CK, ANAX, CP, B12FOL, VD25, AHCV #### [address] [id number] [employer]: Jasbir Montalvo MD #### PACHECO DUARTE #### [address] [address] [employer]: Samuel Olivia MD Ammoniaon 11-28-2023 Ammonia (P) [Mass/Vol] ug/dL Low 16-60 [facility] Comment on above: Performed By: #### A MON ####[facility] [place] [address] Lab Director: Marlon Mack MD Anti-Extract Nuc Agon 2023 Anti-RNP70 0.4 U/mL Normal <7.0 [facility] Comment on above: Result Comment: Reference Range: <7.0 Negative 7.0-10.0 Equivocal >10.0 Positive Performed By: #### A XUAN, GLYHGB, CRP, SED, PE, CDP, TSHX, HIVCMB, CK, ANAX, CP, B12FOL, VD25, AHCV #### [address] [id number] [employer]: Jasbir Montalvo MD #### PACHECO DUARTE #### [facility] [address] [place] [address] [phone] [employer]: Samuel Olivia MD Anti-Scleroderma <0.6 Normal <7.0 [facility] Comment on above: Result Comment: Reference Range: <7.0 Negative 7.0-10.0 Equivocal >10.0 Positive Performed By: #### A XUAN, GLYHGB, CRP, SED, PE, CDP, TSHX, HIVCMB, CK, ANAX, CP, B12FOL, VD25, AHCV #### [address] [id number] [employer]: Jasbir Montalvo MD #### PACHECO DUARTE #### [facility] [address] [place] [address] [phone] [employer]: Samuel Olivia MD Anti-Sm 2.0 U/mL Normal <7.0 [facility] Comment on above: Result Comment: Reference Range: <7.0 Negative 7.0-10.0 Equivocal >10.0 Positive Performed By: #### A XUAN, GLYHGB, CRP, SED, PE, CDP, TSHX, HIVCMB, CK, ANAX, CP, B12FOL, VD25, AHCV #### [address] [id number] [employer]: Jasbir Montalvo MD #### PACHECO DUARTE #### [facility] [address] [place] [address] [employer]: Samuel Olivia MD SSA 0.5 U/mL Normal <7.0 [facility] Comment on above: Result Comment: Reference Range: <7.0 Negative 7.0-10.0 Equivocal >10.0 Positive Performed By: #### A XUAN, GLYHGB, CRP, SED, PE, CDP, TSHX, HIVCMB, CK, ANAX, CP, B12FOL, VD25, AHCV #### [address] [id number] [employer]: Jasbir Montalvo MD #### ASHVIN DUARTERP #### [facility] [address] [place] [address] [employer]: Samuel Olivia MD SSB <0.3 Normal <7.0 [facility] Comment on above: Result Comment: Reference Range: <7.0 Negative 7.0-10.0 Equivocal >10.0 Positive Performed By: #### A XUAN, GLYHGB, CRP, SED, PE, CDP, TSHX, HIVCMB, CK, ANAX, CP, B12FOL, VD25, AHCV #### [place] [address] [employer]: Jasbir Montalvo MD #### PACHECO DUARTE #### [address] [address] [employer]: Samuel Olivia MD Basic Metabolic Profon 11-28 Anion gap [Moles/Vol] 9 mmol/L Normal 9-17 [facility] Comment on above: Performed By: #### B MP, MG, CDP, TROPI #### [address] [place] [address] [employer]: Marlon Mack MD BUN/CRE Ratio 16 Normal 9-20 [facility] Comment on above: Performed By: #### B MP, MG, CDP, TROPI #### [address] [place] [address] [employer]: Marlon Mack MD Calcium [Mass/Vol] 9.1 mg/dL Normal 8.6-10.4 [facility] Comment on above: Performed By: #### B MP, MG, CDP, TROPI #### [facility] [address] [place] [address] [employer]: Marlon Mack MD Chloride [Moles/Vol] 107 mmol/L Normal 98-107 [facility] Comment on above: Performed By: #### B MP, MG, CDP, TROPI #### [facility] [address] [place] [address] [employer]: Marlon Mack MD CO2 [Moles/Vol] 27 mmol/L Normal 20-31 [facility] Comment on above: Performed By: #### B MP, MG, CDP, TROPI #### [facility] [address] [place] [address] [employer]: Marlon Mack MD Creatinine [Mass/Vol] 1.8 mg/dL High 0.7-1.2 [facility] Comment on above: Performed By: #### B MP, MG, CDP, TROPI #### [facility] [address] [place] [address] [employer]: Marlon Mack MD GFR/1.73 sq M.predicted among non-blacks MDRD (S/P/Bld) [Vol rate/Area] 42 mL/min/{1.73_m2} Low >60 [facility] Comment on above: Result Comment: These [...] #### B MP, MG, CDP, TROPI #### [facility] [address] [place] [address] [employer]: Marlon Mack MD Glucose [Mass/Vol] 77 mg/dL Normal 70-99 [facility] Comment on above: Performed By: #### B MP, MG, CDP, TROPI #### [facility] [address] [place], [place] [phone] [employer]: Marlon Mack MD Potassium [Moles/Vol] 3.9 mmol/L Normal 3.7-5.3 [facility] Comment on above: Performed By: #### B MP, MG, CDP, TROPI #### [facility] [address] [place] [address] [place], [place] [phone] [employer]: Marlon Mack MD Sodium [Moles/Vol] 143 mmol/L Normal 135-144 [facility] Comment on above: Performed By: #### B MP, MG, CDP, TROPI #### [facility] [address] [place] [address] [place], [place] [phone] [employer]: Marlon Mack MD Urea nitrogen [Mass/Vol] 29 mg/dL High -23 [facility] Comment on above: Performed By: #### B MP, MG, CDP, TROPI #### [address] [place], [place] 0555583 [employer]: Marlon Mack MD CBC with Diffon 11-28-2023 Abs. Basophil 0.06 k/uL Normal 0.00-0.20 [facility] Comment on above: Performed By: #### B MP, MG, CDP, TROPI #### [facility] [address] [place] [address] [place], [place] [phone] [employer]: Marlon Mack MD Abs.Imm.Granulocyte 0.04 k/uL Normal 0.00-0.30 [facility] Comment on above: Performed By: #### B MP, MG, CDP, TROPI #### [facility] [address] [place], [place] [phone] [employer]: Marlon Mack MD Abs.Neutrophil (Seg) 6.33 k/uL Normal 1.50-8.10 [facility] Comment on above: Performed By: #### B MP, MG, CDP, TROPI #### [facility] [address] [place] [address] Dr. [place], [place] [address] [employer]: Marlon Mack MD Basophils/100 WBC (Bld) 1 % Normal 0-2 [facility] Comment on above: Performed By: #### B MP, MG, CDP, TROPI #### [address] [place], [place] [address] [employer]: Marlon Mack MD Eosinophils (Bld) [#/Vol] 0.25 10*3/uL Normal 0.00-0.44 [facility] Comment on above: Performed By: #### B MP, MG, CDP, TROPI #### [address] [place] [address] [employer]: Marlon Mack MD Eosinophils/100 WBC (Bld) 3 % Normal 1-4 [facility] Comment on above: Performed By: #### B MP, MG, CDP, TROPI #### [address] [place], [place] [address] [employer]: Marlon Mack MD Immature granulocytes/100 WBC (Bld) 0 % Normal 0 [facility] Comment on above: Performed By: #### B MP, MG, CDP, TROPI #### [address] [place], [place] [address] [employer]: Marlon Mack MD Lymphocytes (Bld) [#/Vol] 2.23 10*3/uL Normal 1.10-3.70 [facility] Comment on above: Performed By: #### B MP, MG, CDP, TROPI #### [address] [place] [address] [employer]: Marlon Mack MD Lymphocytes/100 WBC (Bld) 23 % Low 24-43 [facility] Comment on above: Performed By: #### B MP, MG, CDP, TROPI #### [facility] [address] [place], [place] [id number] [employer]: Marlon Mack MD Monocytes (Bld) [#/Vol] 0.64 10*3/uL Normal 0.10-1.20 [facility] Comment on above: Performed By: #### B MP, MG, CDP, TROPI #### [facility] [address] [place], [facility] [facility] [employer]: Marlon Mack MD Monocytes/100 WBC (Bld) 7 % Normal 3-12 [facility] Comment on above: Performed By: #### B MP, MG, CDP, TROPI #### [address] [place], [facility] [employer]: Marlon Mack MD Neutrophil (Seg) 66 % High 36-65 [facility] Comment on above: Performed By: #### B MP, MG, CDP, TROPI #### [address] [place], [place] [id number] [employer]: Marlon Mack MD Erythrocyte distribution width (RBC) [Ratio] 14.0 % Normal 11.8-14.4 [facility] Comment on above: Performed By: #### B MP, MG, CDP, TROPI #### [address] [place], [facility] [employer]: Marlon Mack MD Hematocrit (Bld) [Volume fraction] 48.5 % Normal 40.7-50.3 [facility] Comment on above: Performed By: #### B MP, MG, CDP, TROPI #### [address] [place] [address] [employer]: Marlon Mack MD Hemoglobin (Bld) [Mass/Vol] 15.9 g/dL Normal 13.0-17.0 [facility] Comment on above: Performed By: #### B MP, MG, CDP, TROPI #### [address] [place], [facility]83 [employer]: Marlon Mack MD MCH (RBC) [Entitic mass] 31.2 pg Normal 25.2-33.5 [facility] Comment on above: Performed By: #### B MP, MG, CDP, TROPI #### [address] [place], [facility]83 [employer]: Marlon Mack MD MCHC (RBC) [Mass/Vol] 32.8 g/dL Normal 28.4-34.8 [facility] Comment on above: Performed By: #### B MP, MG, CDP, TROPI #### [address] [place] [id number] [employer]: Marlon Mack MD MCV (RBC) [Entitic vol] 95.3 fL Normal 82.6-102.9 [facility] Comment on above: Performed By: #### B MP, MG, CDP, TROPI #### [address] [place], [facility]83 [employer]: Marlon Mack MD NRBC Automated 0.0 per 100 WBC Normal 0.0 [facility] Comment on above: Performed By: #### B MP, MG, CDP, TROPI #### [address] [place], [facility]83 [employer]: Marlon Mack MD Platelet mean volume (Bld) [Entitic vol] 9.9 fL Normal 8.1-13.5 [facility] Comment on above: Performed By: #### B MP, MG, CDP, TROPI #### [address] [place] [address] [employer]: Marlon Mack MD Platelets (Bld) [#/Vol] 233 10*3/uL Normal 138-453 [facility] Comment on above: Performed By: #### B MP, MG, CDP, TROPI #### [facility] [address] [place], [place] [id number] [employer]: Marlon Mack MD RBC (Bld) [#/Vol] 5.09 10*6/uL Normal 4.21-5.77 [facility] Comment on above: Performed By: #### B MP, MG, CDP, TROPI #### [facility] [address] [place], [place] [id number] [employer]: Marlon Mack MD WBC (Bld) [#/Vol] 9.2 10*3/uL Normal 3.5-11.3 [facility] Comment on above: Performed By: #### B MP, MG, CDP, TROPI #### [facility] [address] [place] [id number] [employer]: Marlon Mack MD Glucose, Whole Bloodon 11-28 Glucose [Mass/Vol] 115 mg/dL High 74-100 [facility] Glucose [Mass/Vol] 81 mg/dL Normal 74-100 [facility] Magnesiumon 11-28-2023 Magnesium [Mass/Vol] 2.5 mg/dL Normal 1.6-2.6 [facility] Comment on above: Performed By: #### B MP, MG, CDP, TROPI #### [facility] [address] [place], [place] [id number] [employer]: Marlon Mack MD Myasthenia Grav Pnlon 2023 Acetylchol Bind Ab 0.0 nmol/L Normal 0.0-0.4 [facility] Comment on above: Result Comment: (NOT E) [...] developed and its performance characteristics determined by [employer]. It has not been cleared or approved by the [place] Food and Drug Administration. This test was performed in a CLIA certified laboratory and is intended for clinical purposes. Performed By: #### A XUAN, GLYHGB, CRP, SED, PE, CDP, TSHX, HIVCMB, CK, ANAX, CP, B12FOL, VD25, AHCV #### [address] [place] [address] [employer] Servicer: Jasbir Montalvo MD #### PACHECO DUARTE #### [facility] [address] [place] [address] [employer] Servicer: Samuel Olivia MD Acetylchol Block Ab 0 % Normal 0-26 [facility] Comment on above: Result Comment: (NOT E) [...] developed and its performance characteristics determined by [employer]. It has not been cleared or approved by the [place] Food and Drug Administration. This test was performed in a CLIA certified laboratory and is intended for clinical purposes. Performed By: #### A XUAN, GLYHGB, CRP, SED, PE, CDP, TSHX, HIVCMB, CK, ANAX, CP, B12FOL, VD25, AHCV #### [address] [id number] [employer]: Jasbir Montalvo MD #### PACHECO DUARTE #### [address] [address] [employer] Servicer: Samuel Olivia MD Striated Musc Ab IgG <1:40 Normal <1:40 [facility] Comment on above: Result Comment: (NOT E) [...] developed and its performance characteristics determined by [employer]. It has not been cleared or approved by the US Food and Drug Administration. This test was performed in a CLIA certified laboratory and is intended for clinical purposes. Performed By: #### A XUAN, GLYHGB, CRP, SED, PE, CDP, TSHX, HIVCMB, CK, ANAX, CP, B12FOL, VD25, AHCV #### [address] [id number] [employer]: Jasbir Montalvo MD #### PACHECO DUARTE #### [address] [address] [employer] Servicer: Samuel Olivia MD Titin Antibody 0.35 IV Normal 0.00-0.45 [facility] Comment on above: Result Comment: (NOT E) [...] developed and its performance characteristics determined by [employer]. It has not been cleared or approved by the US Food and Drug Administration. This test was performed in a CLIA certified laboratory and is intended for clinical purposes. Performed By: [employer] [address] [place] [address] [employer]er: Uriah Prasad MD, PhD CLIA Number: [id number] Performed By: #### A XUAN, GLYHGB, CRP, SED, PE, CDP, TSHX, HIVCMB, CK, ANAX, CP, B12FOL, VD25, AHCV #### [address] [address] [employer]: Jasbir Montalvo MD #### AMGE, ALYARP #### [address] [address] [employer]: Samuel Olivia MD Thyroid Stim. Horm.on 2023 Thyroid Stim. Horm. 0.43 uIU/mL Normal 0.30-5.00 [facility] Comment on above: Performed By: #### T SH #### [facility] [address] [place] [address] [employer] Servicer: Marlon Mack MD Troponinon 11-28-2023 Troponin, High Sens 25 ng/L High 0-22 [facility] Comment on above: Result Comment: High Sensitivity Troponin values cannot be compared with other Troponin methodologies. Performed By: #### T ROPI #### [facility] [address] [place] [address] [employer] Servicer: Marlon Mack MD Troponin, High Sens 24 ng/L High 0-22 [facility] Comment on above: Result Comment: High Sensitivity Troponin values cannot be compared with other Troponin methodologies. Performed By: #### B MP, MG, CDP, TROPI #### [facility] [address] [place] [address] [employer] Servicer: Marlon Mack MD Lyme Dis Rflex Pnlon 024 B burgdorferi Abs, Total 0.37 IV Normal <=0.90 [facility] Comment on above: Result Comment: (NOT E) [...] antibodies to B. burgdorferi detected. Performed By: [employer] [address] [place] [address] [employer]er: Uriah Prasad MD, PhD CLIA Number: [id number] Performed By: #### A XUAN, GLYHGB, CRP, SED, PE, CDP, TSHX, HIVCMB, CK, ANAX, CP, B12FOL, VD25, AHCV #### [address] [place] [address] [employer] Servicer: Jasbir Montalvo MD #### AMYARELI, ALYARP #### [employer] [address] [place] [address] [employer] Servicer: Samuel Olivia MD Prot. Electroph, Blon 2023 Pathologist Review: Reviewed by patholog ist: Shirley Fernando M.D. Normal [facility] Comment on above: Performed By: #### A XUAN, GLYHGB, CRP, SED, PE, CDP, TSHX, HIVCMB, CK, ANAX, CP, B12FOL, VD25, AHCV #### [address] [id number] [employer]: Jasbir Montalvo MD #### ASHVIN DUARTERP #### [facility] [address] [place], [place] [id number] [employer] Tank Servicer: Sameul Olivia MD Prot. Elect-Interp NORMAL ELECTROPHORET IC PATTERN Normal [facility] Comment on above: Performed By: #### A XUAN, GLYHGB, CRP, SED, PE, CDP, TSHX, HIVCMB, CK, ANAX, CP, B12FOL, VD25, AHCV #### [address] [address] [employer] Serv[employer]: Jasbir Montalvo MD #### PACHECO DUARTE #### [facility] [address] [place] [address] [employer] Servicer: Samuel Olivia MD B12/Folate Panelon Folic Acid 7.4 ng/mL Normal 4.8-24.2 [facility] Comment on above: Performed By: #### A XUAN, GLYHGB, CRP, SED, PE, CDP, TSHX, HIVCMB, CK, ANAX, CP, B12FOL, VD25, AHCV #### [address] [id number] [employer] Servicer: Jasbir Montalvo MD #### ASHVIN DUARTERP #### [facility] [address] [place] [address] [employer] Servicer: Samuel Olivia MD Prot. Electroph, Blon 2023 Albumin [Mass/Vol] 4.2 g/dL Normal 3.2-5.2 [facility] Comment on above: Performed By: #### A XUAN, GLYHGB, CRP, SED, PE, CDP, TSHX, HIVCMB, CK, ANAX, CP, B12FOL, VD25, AHCV #### [address] [address] [employer] Servicer: Jasbir Montalvo MD #### ASHVIN DUARTERP #### [facility] [address] [place], [place] [id number] [employer] Servicer: Samuel Olivia MD Albumin, % 59 % Normal 45-65 [facility] Comment on above: Performed By: #### A XUAN, GLYHGB, CRP, SED, PE, CDP, TSHX, HIVCMB, CK, ANAX, CP, B12FOL, VD25, AHCV #### [address] [address] [employer] Servicer: Jasbir Montalvo MD #### ASHVIN DUARTERP #### [facility] [address] [place] [address] [employer] Servicer: Samuel Olivia MD Txjtc-0-gvmbfclat 0.2 g/dL Normal 0.1-0.4 [facility] Comment on above: Performed By: #### A XUAN, GLYHGB, CRP, SED, PE, CDP, TSHX, HIVCMB, CK, ANAX, CP, B12FOL, VD25, AHCV #### [address] [address] [employer] Servicer: Jasbir Montalvo MD #### ASHVIN DUARTERP #### [facility] [address] [place] [address] [employer] Servicer: Samuel Olivia MD Wajqg-5-xlddzhguo,% 3 % Normal 3-6 [facility] Comment on above: Performed By: #### A XUAN, GLYHGB, CRP, SED, PE, CDP, TSHX, HIVCMB, CK, ANAX, CP, B12FOL, VD25, AHCV #### [address] [address] [employer] Servicer: Jasbir Montalvo MD #### PACHECO DUARTE #### [facility] [address] [place] [id number] [employer] Servicer: Samuel Olivia MD Mnfwf-1-ecwgyuvfa 0.9 g/dL Normal 0.5-0.9 [facility] Comment on above: Performed By: #### A XUAN, GLYHGB, CRP, SED, PE, CDP, TSHX, HIVCMB, CK, ANAX, CP, B12FOL, VD25, AHCV #### [address] [address] [employer] Servicer: Jasbir Montalvo MD #### PACHECO DUARTE #### [facility] [address] [place] [id number] [employer] Servicer: Samuel Olivia MD Nxrwj-8-ynldanyex,% 13 % Normal 6-13 [facility] Comment on above: Performed By: #### A XUAN, GLYHGB, CRP, SED, PE, CDP, TSHX, HIVCMB, CK, ANAX, CP, B12FOL, VD25, AHCV #### [place] [address] [employer] Servicer: Jasbir Montalvo MD #### PACHECO DUARTE #### [facility] [address] [place] [id number] [employer] Servicer: Samuel Olivia MD Beta-globulins 0.8 g/dL Normal 0.5-1.1 [facility] Comment on above: Performed By: #### A XUAN, GLYHGB, CRP, SED, PE, CDP, TSHX, HIVCMB, CK, ANAX, CP, B12FOL, VD25, AHCV #### [address] [address] [employer] Servicer: Jasbir Montalvo MD #### PACHECO DUARTE #### [facility] [address] [place] [address] [employer] Servicer: Samuel Olivia MD Beta-globulins,% 11 % Normal 11-19 [facility] Comment on above: Performed By: #### A XUAN, GLYHGB, CRP, SED, PE, CDP, TSHX, HIVCMB, CK, ANAX, CP, B12FOL, VD25, AHCV #### [address] [address] [employer] Servicer: Jasbir Montalvo MD #### PACHECO DUARTE #### [facility] [address] [place] [address] [employer] Servicer: Samuel Olivia MD Gamma-globulins 1.0 g/dL Normal 0.5-1.5 [facility] Comment on above: Performed By: #### A XUAN, GLYHGB, CRP, SED, PE, CDP, TSHX, HIVCMB, CK, ANAX, CP, B12FOL, VD25, AHCV #### [address] [address] [employer] Servicer: Jasbir Montalvo MD #### PACHECO DUARTE #### [facility] [address] [place] [address] [employer] Servicer: Samuel Olivia MD Gamma-globulins,% 14 % Normal 9-20 [facility] Comment on above: Performed By: #### A XUAN, GLYHGB, CRP, SED, PE, CDP, TSHX, HIVCMB, CK, ANAX, CP, B12FOL, VD25, AHCV #### [address] [address] [employer] Servicer: Jasbir Montalvo MD #### AMGE, ALYARP #### [facility] [address] [place] [address] [employer] Servicer: Samuel Olivia MD Total Prot. Sum 7.1 g/dL Normal 6.3-8.2 [facility] Comment on above: Performed By: #### A XUAN, GLYHGB, CRP, SED, PE, CDP, TSHX, HIVCMB, CK, ANAX, CP, B12FOL, VD25, AHCV #### [facility] [address] [place] [address] [employer] Servicer: Jasbir Montalvo MD #### PACHECO DUARTE #### [facility] [address] [place], [place] [id number] [employer] Servicer: Samuel Olivia MD Total Prot. Sum,% 100 % Normal 98-102 [facility] Comment on above: Performed By: #### A XUAN, GLYHGB, CRP, SED, PE, CDP, TSHX, HIVCMB, CK, ANAX, CP, B12FOL, VD25, AHCV #### [address] [address] [employer] Servicer: Jasbir Montalvo MD #### PACHECO DUARTE #### [facility] [address] [place] [address] [employer] Servicer: Samuel Olivia MD B12/Folate Panelon 4 Cobalamin (Vitamin B12) [Mass/Vol] 577 pg/mL Normal 232-1245 [facility] Comment on above: Performed By: #### A XUAN, GLYHGB, CRP, SED, PE, CDP, TSHX, HIVCMB, CK, ANAX, CP, B12FOL, VD25, AHCV #### [address] [address] [employer] Servicer: Jasbir Montalvo MD #### ASHVIN DUARTERP #### [facility] [address] [place] [address] [employer] Servicer: Samuel Olivia MD C-Reactive Proteinon 024 CRP [Mass/Vol] 20.1 mg/L High 0.0-5.0 [facility] Comment on above: Performed By: #### A XUAN, GLYHGB, CRP, SED, PE, CDP, TSHX, HIVCMB, CK, ANAX, CP, B12FOL, VD25, AHCV #### [address] [id number] [employer]icer: Jasbir Montalvo MD #### PACHECO DUARTE #### [facility] [address] [place] [phone] [employer] Servicer: Samuel Olivia MD CBC with Diffon 11-25-2023 Abs. Basophil 0.09 k/uL Normal 0.00-0.20 [facility] Comment on above: Performed By: #### A XUAN, GLYHGB, CRP, SED, PE, CDP, TSHX, HIVCMB, CK, ANAX, CP, B12FOL, VD25, AHCV #### [address] [address] [employer] Servicer: Jasbir Montalvo MD #### PACHECO DUARTE #### [facility] [address] [place] [address] [employer] Servicer: Samuel Olivia MD Abs.Imm.Granulocyte 0.05 k/uL Normal 0.00-0.30 [facility] Comment on above: Performed By: #### A XUAN, GLYHGB, CRP, SED, PE, CDP, TSHX, HIVCMB, CK, ANAX, CP, B12FOL, VD25, AHCV #### [address] [id number] [employer]icer: Jasbir Montalvo MD #### ASHVIN DUARTERP #### [facility] [address] [place] [address] [employer] Servicer: Samuel Olivia MD Abs.Neutrophil (Seg) 7.53 k/uL Normal 1.50-8.10 [facility] Comment on above: Performed By: #### A XUAN, GLYHGB, CRP, SED, PE, CDP, TSHX, HIVCMB, CK, ANAX, CP, B12FOL, VD25, AHCV #### [facility] [address] [place] [address] [employer] Servicer: Jasbir Montalvo MD #### PACHECO DUARTE #### [facility] [address] [place], [place] [id number] [employer] Servicer: Samuel Olivia MD Basophils/100 WBC (Bld) 1 % Normal 0-2 [facility] Comment on above: Performed By: #### A XUAN, GLYHGB, CRP, SED, PE, CDP, TSHX, HIVCMB, CK, ANAX, CP, B12FOL, VD25, AHCV #### [place] [address] [employer] Servicer: Jasbir Montalvo MD #### PACHECO DUARTE #### [facility] [address] [place], [place] [id number] [employer] Servicer: Samuel Olivia MD Eosinophils (Bld) [#/Vol] 0.39 10*3/uL Normal 0.00-0.44 [facility] Comment on above: Performed By: #### A XUAN, GLYHGB, CRP, SED, PE, CDP, TSHX, HIVCMB, CK, ANAX, CP, B12FOL, VD25, AHCV #### [place] [address] [employer] Servicer: Jasbir Montalvo MD #### ASHVIN DUARTERP #### [facility] [address] [place], [place] [id number] [employer] Servicer: Samuel Olivia MD Eosinophils/100 WBC (Bld) 3 % Normal 1-4 [facility] Comment on above: Performed By: #### A XUAN, GLYHGB, CRP, SED, PE, CDP, TSHX, HIVCMB, CK, ANAX, CP, B12FOL, VD25, AHCV #### [address] [address] [employer]icer: Jasbir Montalvo MD #### PACHECO DUARTE #### [facility] [address] [place] [address] [employer] Servicer: Samuel Olivia MD Erythrocyte distribution width (RBC) [Ratio] 14.6 % High 11.8-14.4 [facility] Comment on above: Performed By: #### A XUAN, GLYHGB, CRP, SED, PE, CDP, TSHX, HIVCMB, CK, ANAX, CP, B12FOL, VD25, AHCV #### [address] [address] [employer] Servicer: Jasbir Montalvo MD #### PACHECO DUARTE #### [facility] [address] [place] [address] [employer] Servicer: Samuel Olivia MD Hematocrit (Bld) [Volume fraction] 49.2 % Normal 40.7-50.3 [facility] Comment on above: Performed By: #### A XUAN, GLYHGB, CRP, SED, PE, CDP, TSHX, HIVCMB, CK, ANAX, CP, B12FOL, VD25, AHCV #### [address] [address] [employer] Servicer: Jasbir Montalvo MD #### PACHECO DUARTE #### [facility] [address] [place] [address] [employer] Servicer: Samuel Olivia MD Hemoglobin (Bld) [Mass/Vol] 15.6 g/dL Normal 13.0-17.0 [facility] Comment on above: Performed By: #### A XUAN, GLYHGB, CRP, SED, PE, CDP, TSHX, HIVCMB, CK, ANAX, CP, B12FOL, VD25, AHCV #### [address] [address] [employer] Servicer: Jasbir Montalvo MD #### ASHVIN DUARTERP #### [address] [phone] [employer] Servicer: Samuel Olivia MD Immature granulocytes/100 WBC (Bld) 0 % Normal 0 [facility] Comment on above: Performed By: #### A XUAN, GLYHGB, CRP, SED, PE, CDP, TSHX, HIVCMB, CK, ANAX, CP, B12FOL, VD25, AHCV #### [place] [address] [employer] Servicer: Jasbir Montalvo MD #### PACHECO DUARTE #### [address] [id number] [employer] Servicer: Samuel Olivia MD Lymphocytes (Bld) [#/Vol] 3.13 10*3/uL Normal 1.10-3.70 [facility] Comment on above: Performed By: #### A XUAN, GLYHGB, CRP, SED, PE, CDP, TSHX, HIVCMB, CK, ANAX, CP, B12FOL, VD25, AHCV #### [place] [address] [employer] Servicer: Jasbir Montalvo MD #### PACHECO DUARTE #### [address] [id number] [employer] Servicer: Samuel Olivia MD Lymphocytes/100 WBC (Bld) 26 % Normal 24-43 [facility] Comment on above: Performed By: #### A XUAN, GLYHGB, CRP, SED, PE, CDP, TSHX, HIVCMB, CK, ANAX, CP, B12FOL, VD25, AHCV #### [address] [id number] [employer]: Jasbir Montalvo MD #### PACHECO DUARTE #### [facility] [address] [place], [place] [id number] [employer] Servicer: Samuel Olivia MD MCH (RBC) [Entitic mass] 31.0 pg Normal 25.2-33.5 [facility] Comment on above: Performed By: #### A XUAN, GLYHGB, CRP, SED, PE, CDP, TSHX, HIVCMB, CK, ANAX, CP, B12FOL, VD25, AHCV #### [address] [id number] [employer]: Jasbir Montalvo MD #### PACHECO DUARTE #### [facility] [address] [place] [address] [employer] Servicer: Samuel Olivia MD MCHC (RBC) [Mass/Vol] 31.7 g/dL Normal 28.4-34.8 [facility] Comment on above: Performed By: #### A XUAN, GLYHGB, CRP, SED, PE, CDP, TSHX, HIVCMB, CK, ANAX, CP, B12FOL, VD25, AHCV #### [address] [id number] [employer]: Jasbir Montalvo MD #### PACHECO DUARTE #### [facility] [address] [place], [place] [id number] [employer] Servicer: Samuel Olivia MD MCV (RBC) [Entitic vol] 97.8 fL Normal 82.6-102.9 [facility] Comment on above: Performed By: #### A XUAN, GLYHGB, CRP, SED, PE, CDP, TSHX, HIVCMB, CK, ANAX, CP, B12FOL, VD25, AHCV #### [address] [address] [employer] Servicer: Jasbir Montalvo MD #### ASHVIN DUARTERP #### [facility] [address] [place], [place] [id number] [employer] Servicer: Samuel Olivia MD Monocytes (Bld) [#/Vol] 0.65 10*3/uL Normal 0.10-1.20 [facility] Comment on above: Performed By: #### A XUAN, GLYHGB, CRP, SED, PE, CDP, TSHX, HIVCMB, CK, ANAX, CP, B12FOL, VD25, AHCV #### [place] [address] [employer]: Jasbir Montalvo MD #### ASHVIN DUARTERP #### [facility] [address] [place] [address] [employer]icer: Samuel Olivia MD Monocytes/100 WBC (Bld) 6 % Normal 3-12 [facility] Comment on above: Performed By: #### A XUAN, GLYHGB, CRP, SED, PE, CDP, TSHX, HIVCMB, CK, ANAX, CP, B12FOL, VD25, AHCV #### [place] [address] [employer]icer: Jasbir Montalvo MD #### ASHVIN DUARTERP #### [facility] [address] [place], [place] [id number] [employer] Servicer: Samuel Oliiva MD Neutrophil (Seg) 64 % Normal 36-65 [facility] Comment on above: Performed By: #### A XUAN, GLYHGB, CRP, SED, PE, CDP, TSHX, HIVCMB, CK, ANAX, CP, B12FOL, VD25, AHCV #### [place] [address] [employer]icer: Jasbir Montalvo MD #### ASHVIN DUARTERP #### [facility] [address] [place], [place] [id number] [employer] Servicer: Samuel Olivia MD NRBC Automated 0.0 per 100 WBC Normal 0.0 [facility] Comment on above: Performed By: #### A XUAN, GLYHGB, CRP, SED, PE, CDP, TSHX, HIVCMB, CK, ANAX, CP, B12FOL, VD25, AHCV #### [facility] [address] [place] [address] [employer]: Jasbir Montalvo MD #### ASHVIN DUARTERP #### [facility] [address] [place], [place] [id number] [employer]: Samuel Olivia MD Platelet mean volume (Bld) [Entitic vol] 10.5 fL Normal 8.1-13.5 [facility] Comment on above: Performed By: #### A XUAN, GLYHGB, CRP, SED, PE, CDP, TSHX, HIVCMB, CK, ANAX, CP, B12FOL, VD25, AHCV #### [address] [address] [employer]icer: Jasbir Montalvo MD #### ASHVIN DUARTERP #### [facility] [address] [place], [place] [id number] [employer] Servicer: Samuel Olivia MD Platelets (Bld) [#/Vol] 251 10*3/uL Normal 138-453 [facility] Comment on above: Performed By: #### A XUAN, GLYHGB, CRP, SED, PE, CDP, TSHX, HIVCMB, CK, ANAX, CP, B12FOL, VD25, AHCV #### [address] [address] [employer]: Jasbir Montalvo MD #### GERALD ALROSIERP #### [facility] [address] [place] [address] [employer] Servicer: Samuel Olivia MD RBC (Bld) [#/Vol] 5.03 10*6/uL Normal 4.21-5.77 [facility] Comment on above: Performed By: #### A XUAN, GLYHGB, CRP, SED, PE, CDP, TSHX, HIVCMB, CK, ANAX, CP, B12FOL, VD25, AHCV #### [facility] [address] [place] [address] [employer]: Jasbir Montalvo MD #### BENJAMIN DUARTEYARP #### [facility] [address] [place] [address] [employer] Servicer: Samuel Olivia MD RBC morphology finding Nom (Bld) ANISOCYTOSIS PRESENT Normal [facility] Comment on above: Performed By: #### A XUAN, GLYHGB, CRP, SED, PE, CDP, TSHX, HIVCMB, CK, ANAX, CP, B12FOL, VD25, AHCV #### [facility] [address] [place] [address] [employer]: Jasbir Montalvo MD #### PACHECO DUARTE #### [facility] [address] [place] [address] [employer]icer: Samuel Olivia MD WBC (Bld) [#/Vol] 11.8 10*3/uL High 3.5-11.3 [facility] Comment on above: Performed By: #### A XUAN, GLYHGB, CRP, SED, PE, CDP, TSHX, HIVCMB, CK, ANAX, CP, B12FOL, VD25, AHCV #### [facility] [address] [place] [id number] [employer]: Jasbir Montalvo MD #### GERALD ALROSIERP #### [facility] [address] [place] [address] [employer] Serv[employer]: Samuel Olivia MD Comp Metabolic Profon 2023 Albumin [Mass/Vol] 4.0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 [address] Miah Buck PROF 14(COMP METB)on 023 Albumin [Mass/Vol] 3.5 g/dL Normal 3.4-5.0 [facility] Comment on above: Performed By: #### A 1C #### [facility] [address] [place] [address] Dr. Miah Buck Albumin/Globulin [Mass ratio] 0.7 {ratio} Normal [facility] Comment on above: Performed By: #### A 1C #### [facility] [address] [place] [address] Dr. Miah Buck ALP [Catalytic activity/Vol] 146 U/L Critically high 46-116 [facility] Comment on above: Performed By: #### A 1C #### [facility] [address] [address] [address] Miah Buck ALT [Catalytic activity/Vol] 40 U/L Normal 16-63 [facility] Comment on above: Performed By: #### A 1C #### [facility] [address] [address] [address] Miah Buck Anion gap [Moles/Vol] 13.8 mmol/L Normal [facility] Comment on above: Performed By: #### A 1C #### [facility] [address] [place] [address] Dr. Miah Buck AST [Catalytic activity/Vol] 19 U/L Normal 15-37 [facility] Comment on above: Performed By: #### A 1C #### [facility] [address] [address] [address] Miah Buck Bilirubin [Mass/Vol] 0.4 mg/dL Normal 0.2-1.0 [facility] Comment on above: Performed By: #### A 1C #### [facility] [address] [address] [address] Miah Buck Calcium [Mass/Vol] 9.1 mg/dL Normal 8.5-10.1 [facility] Comment on above: Performed By: #### A 1C #### [facility] [address] [address] [address] Miah Buck Chloride [Moles/Vol] 99 mmol/L Normal 98-107 [facility] Comment on above: Performed By: #### A 1C #### [facility] [address] [address] [address] Miah Buck CO2 [Moles/Vol] 27.6 mmol/L Normal 21.0-32.0 [facility] Comment on above: Performed By: #### A 1C #### [facility] [address] [address] [address] Miah Buck Creatinine [Mass/Vol] 1.88 mg/dL Critically high 0.70-1.30 [facility] Comment on above: Performed By: #### A 1C #### [facility] [address] [address] [address] Miah Buck EGFR-AF LEBANESE 44 mL/min/1.73m2 Critically low >=60 [facility] Comment on above: Performed By: #### A 1C #### [facility] [address] [address] [address] Miah Buck EGFR-NON AF LEBANESE 37 mL/min/1.73m2 Critically low >=60 [facility] Comment on above: Performed By: #### A 1C #### [facility] [address] [address] [address] Miah Buck Globulin (S) [Mass/Vol] 4.7 g/dL Normal [facility] Comment on above: Performed By: #### A 1C #### [facility] [address] [address] [address] Miah Buck Glucose [Mass/Vol] 524 mg/dL Critically high 74-106 [facility] Comment on above: Performed By: #### A 1C #### [facility] [address] [address] [address] Miah Buck Potassium [Moles/Vol] 4.4 mmol/L Normal 3.5-5.1 [facility] Comment on above: Performed By: #### A 1C #### [facility] [address] [address] [address] Miah Buck Protein [Mass/Vol] 8.2 g/dL Normal 6.4-8.2 [facility] Comment on above: Performed By: #### A 1C #### [facility] [address] [address] [address] Miah Buck Sodium [Moles/Vol] 136 mmol/L Normal 136-145 [facility] Comment on above: Performed By: #### A 1C #### [facility] [address] [address] [address] Miah Buck Urea nitrogen [Mass/Vol] 21.0 mg/dL Critically high 7.0-18.0 [facility] Comment on above: Performed By: #### A 1C #### [facility] [address] [address] [address] Miha Buck Urea nitrogen/Creatinine [Mass ratio] 11.2 mg/mg Normal [facility] Comment on above: Performed By: #### A 1C #### [facility] [address] [address] [address] Miah Buck T4on 02-20-2023 T4 [Mass/Vol] 7.80 ug/dL Normal 4.50-12.10 [facility] Comment on above: Performed By: #### A 1C #### [facility] [address] [address] [address] Miah Buck TSHon 02-20-2023 TSH 0.740 uIU/mL Normal 0.358-3.740 [facility] Comment on above: Performed By: #### A 1C #### [facility] [address] [place] [address] Dr. Miah Buck URIC ACID SERUMon 02-20-2023 Urate [Mass/Vol] 8.2 mg/dL Critically high 3.5-7.2 [facility] Comment on above: Performed By: #### A 1C #### [facility] [address] [place] [address] Dr. Miah Buck CREATININEon 01-07-2023 Creatinine [Mass/Vol] 2.09 mg/dL Critically high 0.70-1.30 [facility] Comment on above: Performed By: #### M G, CMP, BNP, TSH, CRP #### [facility] [address] [place] [address] Dr. Miah Buck EGFR-AF LEBANESE 39 mL/min/1.73m2 Critically low >=60 [facility] Comment on above: Performed By: #### M G, CMP, BNP, TSH, CRP #### [facility] [address] [place] [address] Dr. Miah Buck EGFR-NON AF LEBANESE 32 mL/min/1.73m2 Critically low >=60 [facility] Comment on above: Performed By: #### M G, CMP, BNP, TSH, CRP #### [facility] [address] [place] [address] ABD/PELV W CONon [...] ROCK AVELAR Date: 2023-01-07 10:18 Normal [facility] Covid-19 PCR (CVDTB)on SARS-CoV-2 (COVID-19) RNA EMMY+probe Ql (Unsp spec) Not detected Normal NOT DETECTED [facility] Comment on above: Result Comment: This test is not yet approved or cleared by the [place] FDA. When there are no FDA-approved or cleared tests available, and other criteria are met, FDA can make tests available under an emergency access mechanism called an Emergency Use Authorization (EUA). The EUA for this test is supported by the [place] of Health and Human Service's (HHS's) declaration [...] M G, CMP, BNP, TSH, CRP #### [facility] [address] [address] [address] HEAD WO CONon [...] [place] BA[place] Date: 2022-05-29 09:41 Normal [facility] CT NECK ST WO CONon 05-29-20 [...] by: ALISA HOLMAN Date: 2022-05-29 10:26 Normal [facility] VIT D 25-OH LABCORPon 2021 Vitamin D, 25-Hydroxy 27.6 ng/mL Critically low 30.0-100.0 [facility] Comment on above: Result Comment: Rima min D deficiency has been defined by the [place] of [employer] and an Endocrine Society practice guideline as a level of serum 25-OH vitamin D less than 20 ng/mL (1,2). The Endocrine Society went on to further define vitamin D insufficiency as a level between 21 and 29 ng/mL (2). 1. IOM ([place] of [employer]). 2010. Dietary reference intakes for calcium and D. [place]: The National Academies Press. 2. Su MF, Agapito HOSKINS, Mason KAUFMAN, et al. Evaluation, treatment, and prevention of vitamin D deficiency: an Endocrine Society clinical practice guideline. JCEM. 2010; 96(7):1911-30. Performed By: #### V ITADLC #### [facility] [address] [address] [address] Miah Buck XR CHEST 2 Von [...] ROCK AVELAR Date: 2022-05-24 07:37 Normal [facility] BNPon 05-23-2022 Natriuretic peptide B (Bld) [Mass/Vol] 53.0 pg/mL Normal <=900.0 [facility] Comment on above: Performed By: #### M G, CMP, BNP, TSH, CRP #### [facility] [address] [address] [address] Miah Buck CBC AUTO DIFFon 05-23-2022 BASO # 0.1 103/ul Normal 0.0-0.1 [facility] Comment on above: Performed By: #### A 1C #### [facility] [address] [address] [address] Miah Buck Basophils/100 WBC (Bld) 0.7 % Normal 0.2-2.0 [facility] Comment on above: Performed By: #### A 1C #### [facility] [address] [place] [address] Dr. Miah Buck EO # 0.3 103/ul Normal 0.0-0.7 [facility] Comment on above: Performed By: #### A 1C #### [facility] [address] [place] [address] Dr. Miah Buck Eosinophils/100 WBC (Bld) 4.0 % Normal 0.9-7.0 [facility] Comment on above: Performed By: #### A 1C #### [facility] [address] [place] [address] Dr. Miah Buck Erythrocyte distribution width (RBC) [Ratio] 13.4 % Normal 11.0-15.0 [facility] Comment on above: Performed By: #### A 1C #### [facility] [address] [place] [address] Dr. Miah Buck Hematocrit (Bld) [Volume fraction] 46.1 % Normal 42.0-54.0 [facility] Comment on above: Performed By: #### A 1C #### [facility] [address] [place] [address] Dr. Miah Buck Hemoglobin (Bld) [Mass/Vol] 15.5 g/dL Normal 14.0-18.0 [facility] Comment on above: Performed By: #### A 1C #### [facility] [address] [place] [address] Dr. Miah Buck IG # 0.03 10e3/ul Normal 0.00-0.03 [facility] Comment on above: Performed By: #### A 1C #### [facility] [address] [place] [address] Dr. Miah Buck IG % 0.4 % Normal 0.0-0.5 [facility] Comment on above: Performed By: #### A 1C #### [facility] [address] [place] [address] Dr. Miah Buck LYMPH # 2.0 103/ul Normal 1.2-3.8 [facility] Comment on above: Performed By: #### A 1C #### [facility] [address] [place] [address] Dr. Miah Buck Lymphocytes/100 WBC (Bld) 28.1 % Normal 20.5-60.0 [facility] Comment on above: Performed By: #### A 1C #### [facility] [address] [place] [address] Dr. Miah Buck MANUAL DIFF REQ NO Normal [facility] Comment on above: Performed By: #### A 1C #### [facility] [address] [place] [address] Dr. Miah Bukc MCH (RBC) [Entitic mass] 31.8 pg Normal 25.9-34.0 [facility] Comment on above: Performed By: #### A 1C #### [facility] [address] [place] [address] Dr. Miah Buck MCHC (RBC) [Mass/Vol] 33.6 g/dL Normal 29.9-35.2 [facility] Comment on above: Performed By: #### A 1C #### [facility] [address] [place] [address] Dr. Miah Buck MCV (RBC) [Entitic vol] 94.7 fL Critically high 80.0-94.0 [facility] Comment on above: Performed By: #### A 1C #### [facility] [address] [place] [address] Dr. Miah Buck MONO # 0.5 103/ul Normal 0.3-0.8 [facility] Comment on above: Performed By: #### A 1C #### [facility] [address] [place] [address] Dr. Miah Buck Monocytes/100 WBC (Bld) 7.1 % Normal 1.7-12.0 [facility] Comment on above: Performed By: #### A 1C #### [facility] [address] [place] [address] Dr. Miah Buck NEUT # 4.3 103/ul Normal 1.4-6.5 [facility] Comment on above: Performed By: #### A 1C #### [facility] [address] [place] [address] Dr. Miah Buck Neutrophils/100 WBC (Bld) 59.7 % Normal 43.0-75.0 [facility] Comment on above: Performed By: #### A 1C #### [facility] [address] [place] [address] Dr. Miah Buck Platelet mean volume (Bld) [Entitic vol] 10.6 fL Normal 9.5-13.5 [facility] Comment on above: Performed By: #### A 1C #### [facility] [address] [place] [address] Dr. Miah Buck PLT 209 103/ul Normal 150-450 [facility] Comment on above: Performed By: #### A 1C #### [facility] [address] [place] [address] Dr. Miah Buck RBC 4.87 106/ul Normal 4.70-6.10 [facility] Comment on above: Performed By: #### A 1C #### [facility] [address] [place] [address] Dr. Miah Buck WBC 7.2 103/ul Normal 4.0-11.0 [facility] Comment on above: Performed By: #### A 1C #### [facility] [address] [place] [address] Dr. Miah Buck CRPon 05-23-2022 CRP 1.0 mg/dL Normal <=1.0 [facility] Comment on above: Performed By: #### M G, CMP, BNP, TSH, CRP #### [facility] [address] [place] [address] Dr. Miah Buck ECHOCARDIO M/2D COMPLETEon 0 05-23-2022 ECHOCARDIO M/2D COMPLETE Patient: ANDRY PIERRE Exam Date: 05/23/2022 : 1960 Gender:M Ordering : SOF[facility]GO [facility] Admission #: [id number] Family : SAY MCCORMICK . Order #: [id number] CLICK HERE TO VIEW EXAM ECHOCARDIOGRAM REPORT [...] M.D. on 05/23/2022 at 18:40 Normal [facility] MAGNESIUMon 05-23-2022 Magnesium [Mass/Vol] 2.3 mg/dL Normal 1.8-2.4 [facility] Comment on above: Performed By: #### M G, CMP, BNP, TSH, CRP #### [facility] [address] [address] [address] Miah Buck PROF 14(COMP METB)on 022 Albumin [Mass/Vol] 3.6 g/dL Normal 3.4-5.0 [facility] Comment on above: Performed By: #### M G, CMP, BNP, TSH, CRP #### [facility] [address] [place] [address] Dr. Miah Buck Albumin/Globulin [Mass ratio] 0.9 {ratio} Normal [facility] Comment on above: Performed By: #### M G, CMP, BNP, TSH, CRP #### [facility] [address] [place] [address] Dr. Miah Buck ALP [Catalytic activity/Vol] 113 U/L Normal 46-116 [facility] Comment on above: Performed By: #### M G, CMP, BNP, TSH, CRP #### [facility] [address] [place] [address] Dr. Miah Buck ALT [Catalytic activity/Vol] 34 U/L Normal 16-63 [facility] Comment on above: Performed By: #### M G, CMP, BNP, TSH, CRP #### [facility] [address] [place] [address] Dr. Miah Buck Anion gap [Moles/Vol] 10.7 mmol/L Normal [facility] Comment on above: Performed By: #### M G, CMP, BNP, TSH, CRP #### [facility] [address] [place] [address] Dr. Miah Buck AST [Catalytic activity/Vol] 23 U/L Normal 15-37 [facility] Comment on above: Performed By: #### M G, CMP, BNP, TSH, CRP #### [facility] [address] [place] [address] Dr. Miah Buck Bilirubin [Mass/Vol] 0.3 mg/dL Normal 0.2-1.0 [facility] Comment on above: Performed By: #### M G, CMP, BNP, TSH, CRP #### [facility] [address] [place] [address] Dr. Miah Buck Calcium [Mass/Vol] 8.9 mg/dL Normal 8.5-10.1 [facility] Comment on above: Performed By: #### M G, CMP, BNP, TSH, CRP #### [facility] [address] [address] [address] Miah Buck Chloride [Moles/Vol] 105 mmol/L Normal 98-107 [facility] Comment on above: Performed By: #### M G, CMP, BNP, TSH, CRP #### [facility] [address] [address] [address] Miah Buck CO2 [Moles/Vol] 26.5 mmol/L Normal 21.0-32.0 [facility] Comment on above: Performed By: #### M G, CMP, BNP, TSH, CRP #### [facility] [address] [address] [address] Miah Buck Creatinine [Mass/Vol] 1.73 mg/dL Critically high 0.70-1.30 [facility] Comment on above: Performed By: #### M G, CMP, BNP, TSH, CRP #### [facility] [address] [address] [address] Miah Buck EGFR-AF LEBANESE 49 mL/min/1.73m2 Critically low >=60 [facility] Comment on above: Performed By: #### M G, CMP, BNP, TSH, CRP #### [facility] [address] [address] [address] Miah Buck EGFR-NON AF LEBANESE 40 mL/min/1.73m2 Critically low >=60 [facility] Comment on above: Performed By: #### M G, CMP, BNP, TSH, CRP #### [facility] [address] [address] [address] Miah Buck Globulin (S) [Mass/Vol] 4.0 g/dL Normal [facility] Comment on above: Performed By: #### M G, CMP, BNP, TSH, CRP #### [facility] [address] [address] [address] Miah Buck Glucose [Mass/Vol] 285 mg/dL Critically high 74-106 [facility] Comment on above: Performed By: #### M G, CMP, BNP, TSH, CRP #### [facility] [address] [place] [address] Dr. Miah Buck Potassium [Moles/Vol] 4.2 mmol/L Normal 3.5-5.1 [facility] Comment on above: Performed By: #### M G, CMP, BNP, TSH, CRP #### [facility] [address] [place] [address] Dr. Miah Buck Protein [Mass/Vol] 7.6 g/dL Normal 6.4-8.2 [facility] Comment on above: Performed By: #### M G, CMP, BNP, TSH, CRP #### [facility] [address] [place] [address] Dr. Miah Buck Sodium [Moles/Vol] 138 mmol/L Normal 136-145 [facility] Comment on above: Performed By: #### M G, CMP, BNP, TSH, CRP #### [facility] [address] [place] [address] Dr. Miah Buck Urea nitrogen [Mass/Vol] 23.0 mg/dL Critically high 7.0-18.0 [facility] Comment on above: Performed By: #### M G, CMP, BNP, TSH, CRP #### [facility] [address] [place] [address] Dr. Miah Buck Urea nitrogen/Creatinine [Mass ratio] 13.3 mg/mg Normal [facility] Comment on above: Performed By: #### M G, CMP, BNP, TSH, CRP #### [facility] [address] [place] [address] Dr. Miah Buck TSHon 05-23-2022 TSH 0.714 uIU/mL Normal 0.358-3.740 [facility] Comment on above: Performed By: #### M G, CMP, BNP, TSH, CRP #### [facility] [address] [place] [address] Dr. Miah Buck VITAMIN B12on 05-23-2022 Cobalamin (Vitamin B12) [Mass/Vol] 930.0 pg/mL Normal 193.0-986.0 [facility] Comment on above: Performed By: #### V ITB12 #### [facility] [address] [address] [address] Miah Buck BASIC METABOLIC PANELon 10-2 Calcium [Mass/Vol] 8.3 mg/dL Low 8.6-10.3 [facility] Comment on above: Order Comment: No: D o not add to previous draw Performed By: #### 1 0070, 51547, 80135, 13880 #### [facility] [address] [place] [address], [facility] Chloride [Moles/Vol] 105 mmol/L Normal 98-107 [facility] Comment on above: Order Comment: No: D o not add to previous draw Performed By: #### 1 0070, 32475, 49754, 25076 #### [facility] [address] [place] [address], [facility] CO2 [Moles/Vol] 22 mmol/L Normal 21-31 [facility] Comment on above: Order Comment: No: D o not add to previous draw Performed By: #### 1 0070, 78523, 25031, 21586 #### [facility] [address] [place] [address], [facility] Creatinine [Mass/Vol] 1.31 mg/dL High 0.70-1.30 [facility] Comment on above: Order Comment: No: D o not add to previous draw Performed By: #### 1 0070, 02798, 92778, 43324 #### [facility] [address] [place] [address], [place] eGFR- non- 56 ml/min/1.73sq m Abnormal >60 [facility] Comment on above: Order Comment: No: D o not add to previous draw Performed By: #### 1 0070, 42383, 40082, 21975 #### [facility] [address] [place] [address], [facility] GFR/1.73 sq M.predicted among blacks MDRD (S/P/Bld) [Vol rate/Area] mL/min/{1.73_m2} Normal >60 [facility] Comment on above: Order Comment: No: D o not add to previous draw Performed By: #### 1 0070, 16495, 45220, 43965 #### [facility] [address] [facility] [place] [address], [facility] Glucose [Mass/Vol] 231 mg/dL High 70-100 [facility] Comment on above: Order Comment: No: D o not add to previous draw Performed By: #### 1 0070, 04284, 37764, 99227 #### [facility] [address] [facility] [place] [address], [facility] Potassium [Moles/Vol] 3.6 mmol/L Normal 3.5-5.1 [facility] Comment on above: Order Comment: No: D o not add to previous draw Performed By: #### 1 0070, 83034, 11283, 55405 #### [facility] [address] [facility] [place] [address], [facility] Sodium [Moles/Vol] 139 mmol/L Normal 136-145 [facility] Comment on above: Order Comment: No: D o not add to previous draw Performed By: #### 1 0070, 14190, 53788, 09534 #### [facility] [address] [facility] [place] [address], [facility] Urea nitrogen [Mass/Vol] 17 mg/dL Normal 7-25 [facility] Comment on above: Order Comment: No: D o not add to previous draw Performed By: #### 1 0070, 01742, 68759, 08544 #### [facility] [address] [place] [id number], [facility] CBC W/DIFFon 07-27-2021 ABS IMM GRANS 0.1 10*3/uL Normal 0.0-0.2 [facility] Comment on above: Performed By: #### 1 0070, 39526, 65248, 67147 #### [facility] [address] [place] [address], [facility] CENTER ABS NEUTROPHILS 10.2 10*3/uL High 1.6-7.6 [facility] Comment on above: Performed By: #### 1 0070, 74582, 66635, 80614 #### [facility] [address] [place] [address], [facility] Basophils (Bld) [#/Vol] 0.0 10*3/uL Normal 0.0-0.2 [facility] Comment on above: Performed By: #### 1 0070, 43375, 32150, 94790 #### [facility] [address] [place] [address], [facility] Basophils/100 WBC (Bld) 0.3 % Normal 0.0-1.0 [facility] Comment on above: Performed By: #### 1 0070, 97433, 07714, 24966 #### [facility] [address] [place] [address], [facility] Eosinophils (Bld) [#/Vol] 0.0 10*3/uL Normal 0.0-0.5 [facility] Comment on above: Performed By: #### 1 0070, 36119, 09418, 13055 #### [facility] [address] [place] [address], [facility] Eosinophils/100 WBC (Bld) 0.0 % Normal 0.0-6.0 [facility] Comment on above: Performed By: #### 1 0070, 38528, 68101, 71021 #### [facility] [address] [place] [address], [facility] Erythrocyte distribution width (RBC) [Ratio] 13.2 % Normal 11.5-15.0 [facility] Comment on above: Performed By: #### 1 0070, 16917, 32498, 76921 #### [facility] [address] [facility] [place]. [address] Hematocrit (Bld) [Volume fraction] 44.2 % Normal 39.0-50.0 [facility] Comment on above: Performed By: #### 1 0070, 90173, 99094, 99132 #### [facility] [address] [facility] [address] Hemoglobin (Bld) [Mass/Vol] 14.9 g/dL Normal 13.0-17.0 [facility] Comment on above: Performed By: #### 1 0070, 92159, 10682, 95339 #### [facility] [address] [facility]. [address] IMMATURE GRANS 0.7 % Normal 0.0-1.0 [facility] Comment on above: Performed By: #### 1 0, 18944, 67865, 27083 #### [facility] [address] [facility]. [address] Lymphocytes (Bld) [#/Vol] 1.0 10*3/uL Low 1.2-4.0 [facility] Comment on above: Performed By: #### 1 0, 51175, 99741, 23189 #### [facility] [address] [facility]. [address] Lymphocytes/100 WBC (Bld) 8.2 % Low 20.0-45.0 [facility] Comment on above: Performed By: #### 1 0070, 02443, 05723, 28191 #### [facility] [address] [facility]. [address] MCH (RBC) [Entitic mass] 31.2 pg Normal 27.0-33.0 [facility] Comment on above: Performed By: #### 1 0070, 59460, 06496, 91359 #### [facility] [address] MCHC (RBC) [Mass/Vol] 33.7 g/dL Normal 32.0-35.0 [facility] Comment on above: Performed By: #### 1 0070, 72985, 60162, 34146 #### [facility] [address] [facility] [place] [address], [facility] MCV (RBC) [Entitic vol] 92.7 fL Normal 82.0-98.0 [facility] Comment on above: Performed By: #### 1 0070, 86354, 95590, 75519 #### [facility] [address] [place] [address], [facility] Monocytes (Bld) [#/Vol] 0.9 10*3/uL Normal 0.1-1.0 [facility] Comment on above: Performed By: #### 1 0, 32080, 76965, 15118 #### [facility] [address] MONOS 7.0 % Normal 5.0-12.0 [facility] Comment on above: Performed By: #### 1 0070, 32903, 17688, 45573 #### [facility] [address] Neutrophils/100 WBC (Bld) 83.8 % High 40.0-72.0 [facility] Comment on above: Performed By: #### 1 0070, 11494, 18421, 07861 #### [facility] [address] Nucleated RBC/100 WBC (Bld) [Ratio] 0 % Normal 0-0 [facility] Comment on above: Performed By: #### 1 0070, 15469, 53894, 02897 #### [facility] [address] [facility] [place] [address], [facility] PLAT CNT 198 10*3/uL Normal 150-400 [facility] Comment on above: Performed By: #### 1 0070, 92509, 92637, 39393 #### [facility] [address] [place] [address], [facility] RBC (Bld) [#/Vol] 4.77 10*6/uL Normal 4.20-5.70 [facility] Comment on above: Performed By: #### 1 0070, 69900, 41986, 98096 #### [facility] [address] [place] [address], [place] WBC (Bld) [#/Vol] 12.15 10*3/uL High 4.00-10.60 [facility] Comment on above: Performed By: #### 1 0070, 08278, 54211, 09793 #### [facility] [address] [place] [address], [facility] LIVER BATTERYon 07-27-2021 Albumin [Mass/Vol] 3.3 g/dL Low 3.5-5.7 [facility] Comment on above: Order Comment: No: D o not add to previous draw Performed By: #### 1 0070, 88961, 45660, 49139 #### [facility] [address] [facility] [place] [address], [facility] ALKALINE PHOSPH 124 IU/L High 34-104 [facility] Comment on above: Order Comment: No: D o not add to previous draw Performed By: #### 1 0070, 30809, 89231, 08650 #### [facility] [address] [place] [address], [place] ALT [Catalytic activity/Vol] 58 U/L High 7-52 [facility] Comment on above: Order Comment: No: D o not add to previous draw Performed By: #### 1 0070, 24574, 62144, 59281 #### [facility] [address] [place] [address], [place] AST [Catalytic activity/Vol] 48 U/L High 13-39 [facility] Comment on above: Order Comment: No: D o not add to previous draw Performed By: #### 1 0070, 98202, 10421, 52573 #### [facility] [address] [place] [address], [facility] Bilirubin [Mass/Vol] 0.8 mg/dL Normal 0.3-1.0 [facility] Comment on above: Order Comment: No: D o not add to previous draw Performed By: #### 1 0070, 39658, 79912, 17625 #### [facility] [address] [place] [address], [facility] Bilirubin.direct [Mass/Vol] 0.3 mg/dL High 0.0-0.2 [facility] Comment on above: Order Comment: No: D o not add to previous draw Performed By: #### 1 0070, 47538, 27097, 07382 #### [facility] [address] [place] [address], [facility] Protein [Mass/Vol] 6.2 g/dL Normal 6.0-8.3 [facility] Comment on above: Order Comment: No: D o not add to previous draw Performed By: #### 1 0070, 51769, 05061, 93497 #### [facility] [address] [place] [address], [facility] MAGNESIUM BLOODon 07-27-2021 Magnesium [Mass/Vol] 1.8 mg/dL Low 1.9-2.7 [facility] Comment on above: Order Comment: No: D o not add to previous draw Performed By: #### 1 0070, 12884, 62120, 04088 #### [facility] [address] [place] [address], [facility] PHOSPHORUS BLOODon Phosphate [Mass/Vol] 2.9 mg/dL Normal 2.5-5.0 [facility] Comment on above: Order Comment: No: D o not add to previous draw Performed By: #### 1 0070, 41595, 39886, 06411 #### [facility] [address] POC GLUCOSE LABon 07-27-2021 Glucose [Mass/Vol] 260 mg/dL High 70-100 [facility] Comment on above: Performed By: #### 8 5499 #### [facility] [address] [place] [address], [facility] Glucose [Mass/Vol] 225 mg/dL High 70-100 [facility] Comment on above: Performed By: #### 1 0070, 48777, 73277, 89609 #### [facility] [address] PROTHROMBIN TIMEon INR Coag (PPP) [Relative time] 1.22 {INR} High 0.91-1.16 [facility] Comment on above: Order Comment: No: D [...] CHEST 1995;108:231S-246S. Performed By: #### 1 0070, 54949, 71029, 59212 #### [facility] [address] [place] [address], [facility] PT Coag (PPP) [Time] 15.4 s High 12.3-14.8 [facility] Comment on above: Order Comment: No: D o not add to previous draw Result Comment: ALL RESULTS MUST BE INTERPRETED WITH RESPECT TO BLOOD DRAWING ARTIFACT OR DILUTION ERROR OF ANTICOAGULANT AT THE TIME OF SAMPLING. Performed By: #### 1 0070, 80460, 36781, 37536 #### [facility] [address] [place] [address], [facility] BASIC METABOLIC PANELon 10-2 Calcium [Mass/Vol] 8.5 mg/dL Low 8.6-10.3 [facility] Comment on above: Order Comment: No: D o not add to previous draw Performed By: #### 8 5499 #### [facility] [address] [place] [address], [facility] Chloride [Moles/Vol] 108 mmol/L High 98-107 [facility] Comment on above: Order Comment: No: D o not add to previous draw Performed By: #### 8 5499 #### [facility] [address] [facility] [place] [address], [facility] CO2 [Moles/Vol] 24 mmol/L Normal 21-31 [facility] Comment on above: Order Comment: No: D o not add to previous draw Performed By: #### 8 5499 #### [facility] [address] [facility] [place] [address], [facility] Creatinine [Mass/Vol] 1.23 mg/dL Normal 0.70-1.30 [facility] Comment on above: Order Comment: No: D o not add to previous draw Performed By: #### 8 5499 #### [facility] [address] [place] [address], [facility] eGFR- non- 60 ml/min/1.73sq m Abnormal >60 [facility] Comment on above: Order Comment: No: D o not add to previous draw Performed By: #### 8 5499 #### [facility] [address] [place] [address], [facility] GFR/1.73 sq M.predicted among blacks MDRD (S/P/Bld) [Vol rate/Area] mL/min/{1.73_m2} Normal >60 [facility] Comment on above: Order Comment: No: D o not add to previous draw Performed By: #### 8 5499 #### [facility] [address] [place] [address], [place] Glucose [Mass/Vol] 141 mg/dL High 70-100 [facility] Comment on above: Order Comment: No: D o not add to previous draw Performed By: #### 8 5499 #### [facility] [address] [place] [address], [place] Potassium [Moles/Vol] 3.5 mmol/L Normal 3.5-5.1 [facility] Comment on above: Order Comment: No: D o not add to previous draw Performed By: #### 8 5499 #### [facility] [address] [place] [address], [place] Sodium [Moles/Vol] 139 mmol/L Normal 136-145 [facility] Comment on above: Order Comment: No: D o not add to previous draw Performed By: #### 8 5499 #### [facility] [address] [place] [address], [facility] Urea nitrogen [Mass/Vol] 18 mg/dL Normal 7-25 [facility] Comment on above: Order Comment: No: D o not add to previous draw Performed By: #### 8 5499 #### [facility] [address] [place] [id number], [facility] CBC COMPLETE BLOOD COUNTon - Erythrocyte distribution width (RBC) [Ratio] 13.2 % Normal 11.5-15.0 [facility] Comment on above: Order Comment: No: D o not add to previous draw Performed By: #### 1 0070, 36662, 68734, 84673 #### [facility] [address] [place] [address], [facility] Hematocrit (Bld) [Volume fraction] 42.7 % Normal 39.0-50.0 [facility] Comment on above: Order Comment: No: D o not add to previous draw Performed By: #### 1 0070, 09906, 65497, 69305 #### [facility] [address] [place] [address], [facility] Hemoglobin (Bld) [Mass/Vol] 14.5 g/dL Normal 13.0-17.0 [facility] Comment on above: Order Comment: No: D o not add to previous draw Performed By: #### 1 0070, 64502, 67523, 94819 #### [facility] [address] [place] [address], [facility] MCH (RBC) [Entitic mass] 32.0 pg Normal 27.0-33.0 [facility] Comment on above: Order Comment: No: D o not add to previous draw Performed By: #### 1 0070, 25845, 06541, 13703 #### [facility] [address] [place] [address], [facility] MCHC (RBC) [Mass/Vol] 34.0 g/dL Normal 32.0-35.0 [facility] Comment on above: Order Comment: No: D o not add to previous draw Performed By: #### 1 0070, 21229, 60966, 93003 #### [facility] [address] [place] [address], [facility] MCV (RBC) [Entitic vol] 94.3 fL Normal 82.0-98.0 [facility] Comment on above: Order Comment: No: D o not add to previous draw Performed By: #### 1 0070, 64571, 17483, 19125 #### [facility] [address] [place] [address], [facility] Nucleated RBC/100 WBC (Bld) [Ratio] 0 % Normal 0-0 [facility] Comment on above: Order Comment: No: D o not add to previous draw Performed By: #### 1 0070, 14956, 89063, 53541 #### [facility] [address] [place] [address], [facility] PLAT CNT 179 10*3/uL Normal 150-400 [facility] Comment on above: Order Comment: No: D o not add to previous draw Performed By: #### 1 0070, 80022, 54571, 19282 #### [facility] [address] [facility] [place] [address], [facility] RBC (Bld) [#/Vol] 4.53 10*6/uL Normal 4.20-5.70 [facility] Comment on above: Order Comment: No: D o not add to previous draw Performed By: #### 1 0070, 89284, 19149, 27268 #### [facility] [address] [facility] [place] [address], [facility] WBC (Bld) [#/Vol] 7.86 10*3/uL Normal 4.00-10.60 [facility] Comment on above: Order Comment: No: D o not add to previous draw Performed By: #### 1 0070, 03951, 90150, 84638 #### [facility] [address] [place] [address], [facility] LIVER BATTERYon 07-26-2021 Albumin [Mass/Vol] 3.2 g/dL Low 3.5-5.7 [facility] Comment on above: Order Comment: No: D o not add to previous draw Performed By: #### 0 0071, 07688 #### [facility] [address] [place] [id number], [facility] ALKALINE PHOSPH 114 IU/L High 34-104 [facility] Comment on above: Order Comment: No: D o not add to previous draw Performed By: #### 0 0071, 17416 #### [facility] [address] [place] [address], [place] ALT [Catalytic activity/Vol] 37 U/L Normal 7-52 [facility] Comment on above: Order Comment: No: D o not add to previous draw Performed By: #### 0 0071, 36406 #### [facility] [address] [place] [address], [place] AST [Catalytic activity/Vol] 28 U/L Normal 13-39 [facility] Comment on above: Order Comment: No: D o not add to previous draw Performed By: #### 0 0071, 04708 #### [facility] [address] [place] [address], [place] Bilirubin [Mass/Vol] 0.6 mg/dL Normal 0.3-1.0 [facility] Comment on above: Order Comment: No: D o not add to previous draw Performed By: #### 0 0071, 51302 #### [facility] [address] [place] [address], [place] Bilirubin.direct [Mass/Vol] 0.1 mg/dL Normal 0.0-0.2 [facility] Comment on above: Order Comment: No: D o not add to previous draw Performed By: #### 0 0071, 87600 #### [facility] [address] [place] [address], [place] Protein [Mass/Vol] 6.3 g/dL Normal 6.0-8.3 [facility] Comment on above: Order Comment: No: D o not add to previous draw Performed By: #### 0 0071, 71495 #### [facility] [address] [place] [address], [place] Operative Reporton 1 Operative Report MR#: [id number] [facility] Pt. Name: Andry Pierre Room #: [id number] Discharge Date: Birthdate: 1960 OPERATIVE REPORT DATE [...] Vicryl interrupted suture, which was placed by Magdaleno-Mayr needle. Skin of the incisions were closed [...] Olivier M.D. Date Trans: 07/26/2021 04:31 P/ [id number] cc: Say Mccormick M.D. [address], [facility] [place] [facility] [id number] Normal [facility] POC GLUCOSE LABon 07-26-2021 Glucose [Mass/Vol] 155 mg/dL High 70-100 [facility] Comment on above: Performed By: #### 1 0070, 92538, 80427, 20622 #### [facility] [address] [facility] [place] [address], [place] Glucose [Mass/Vol] 149 mg/dL High 70-100 [facility] Comment on above: Performed By: #### 8 5499 #### [facility] [address] [facility] [place] [address], [place] Glucose [Mass/Vol] 123 mg/dL High 70-100 [facility] Comment on above: Performed By: #### 1 0070, 79689, 95936, 32915 #### [facility] [address] [facility] [place] [address], [place] Glucose [Mass/Vol] 126 mg/dL High 70-100 [facility] Comment on above: Performed By: #### 8 5499 #### [facility] [address] [facility] [place] [address], [place] PROTHROMBIN TIMEon 1 INR Coag (PPP) [Relative time] 1.20 {INR} High 0.91-1.16 [facility] Comment on above: Order Comment: No: [...] CHEST 1995;108:231S-246S. Performed By: #### 1 0070, 47388, 79745, 91657 #### [facility] [address] [facility] [place] [address], [facility] PT Coag (PPP) [Time] 15.2 s High 12.3-14.8 [facility] Comment on above: Order Comment: No: D o not add to previous draw Result Comment: ALL RESULTS MUST BE INTERPRETED WITH RESPECT TO BLOOD DRAWING ARTIFACT OR DILUTION ERROR OF ANTICOAGULANT AT THE TIME OF SAMPLING. Performed By: #### 1 0070, 74299, 29829, 43876 #### [facility] [address] [place] [address], [facility] APTTon 07-25-2021 aPTT Coag (Bld) [Time] 29.3 s Normal 25.0-35.0 [facility] Comment on above: Order Comment: No: [...] THIS PURPOSE. Performed By: #### 1 0070, 32154, 40219, 65921 #### [facility] [address] aPTT Coag (Bld) [Time] 28.7 s Normal 25.0-35.0 [facility] Comment on above: Order Comment: No: [...] THIS PURPOSE. Performed By: #### 1 0070, 45231, 24258, 99169 #### [facility] [address] [facility] BASIC METABOLIC PANELon 10-2 0-202 Calcium [Mass/Vol] 8.3 mg/dL Low 8.6-10.3 [facility] Comment on above: Order Comment: No: D o not add to previous draw Performed By: #### 1 0070, 07258, 15680, 86517 #### [facility] [address] [facility] [place] [address], [facility] Chloride [Moles/Vol] 111 mmol/L High 98-107 [facility] Comment on above: Order Comment: No: D o not add to previous draw Performed By: #### 1 0070, 89100, 11233, 06860 #### [facility] [address] [facility] [place] [address], [facility] CO2 [Moles/Vol] 26 mmol/L Normal 21-31 [facility] Comment on above: Order Comment: No: D o not add to previous draw Performed By: #### 1 0070, 70661, 00663, 34608 #### [facility] [address] [place] [address], [facility] Creatinine [Mass/Vol] 1.25 mg/dL Normal 0.70-1.30 [facility] Comment on above: Order Comment: No: D o not add to previous draw Performed By: #### 1 0070, 12644, 90318, 24730 #### [facility] [address] [place] [address], [facility] eGFR- non- 59 ml/min/1.73sq m Abnormal >60 [facility] Comment on above: Order Comment: No: D o not add to previous draw Performed By: #### 1 0070, 21553, 63564, 95859 #### [facility] [address] [place] [address], [facility] GFR/1.73 sq M.predicted among blacks MDRD (S/P/Bld) [Vol rate/Area] mL/min/{1.73_m2} Normal >60 [facility] Comment on above: Order Comment: No: D o not add to previous draw Performed By: #### 1 0070, 57616, 12371, 26884 #### [facility] [address] [place] [address], [facility] Glucose [Mass/Vol] 107 mg/dL High 70-100 [facility] Comment on above: Order Comment: No: D o not add to previous draw Performed By: #### 1 0070, 48367, 90743, 11664 #### [facility] [address] [place] [address], [place] Potassium [Moles/Vol] 3.6 mmol/L Normal 3.5-5.1 [facility] Comment on above: Order Comment: No: D o not add to previous draw Performed By: #### 1 0070, 98869, 83713, 96884 #### [facility] [address] [place] [address], [place] Sodium [Moles/Vol] 143 mmol/L Normal 136-145 [facility] Comment on above: Order Comment: No: D o not add to previous draw Performed By: #### 1 0070, 65769, 54180, 58145 #### [facility] [address] [place] [address], [facility] Urea nitrogen [Mass/Vol] 22 mg/dL Normal 7-25 [facility] Comment on above: Order Comment: No: D o not add to previous draw Performed By: #### 1 0070, 83091, 48601, 20787 #### [facility] [address] [place] [address], [facility] CBC COMPLETE BLOOD COUNTon Erythrocyte distribution width (RBC) [Ratio] 13.3 % Normal 11.5-15.0 [facility] Comment on above: Order Comment: No: D o not add to previous draw Performed By: #### 1 0070, 27001, 88222, 92218 #### [facility] [address] [place] [address], [facility] Hematocrit (Bld) [Volume fraction] 46.9 % Normal 39.0-50.0 [facility] Comment on above: Order Comment: No: D o not add to previous draw Performed By: #### 1 0070, 06604, 36636, 36828 #### [facility] [address] [place] [address], [facility] Hemoglobin (Bld) [Mass/Vol] 15.4 g/dL Normal 13.0-17.0 [facility] Comment on above: Order Comment: No: D o not add to previous draw Performed By: #### 1 0070, 96591, 41949, 18071 #### [facility] [address] [place] [address], [facility] MCH (RBC) [Entitic mass] 31.3 pg Normal 27.0-33.0 [facility] Comment on above: Order Comment: No: D o not add to previous draw Performed By: #### 1 0070, [id number], [id number], [id number] #### [facility] [address] [place] [address], [facility] MCHC (RBC) [Mass/Vol] 32.8 g/dL Normal 32.0-35.0 [facility] Comment on above: Order Comment: No: D o not add to previous draw Performed By: #### 1 0070, [id number], [id number], [id number] #### [facility] [address] [place] [id number], [facility] MCV (RBC) [Entitic vol] 95.3 fL Normal 82.0-98.0 [facility] Comment on above: Order Comment: No: D o not add to previous draw Performed By: #### 1 0070, [id number], [id number], [id number] #### [facility] [address] [place] [address], [facility] Nucleated RBC/100 WBC (Bld) [Ratio] 0 % Normal 0-0 [facility] Comment on above: Order Comment: No: D o not add to previous draw Performed By: #### 1 0070, 35223, 53923, 17821 #### [facility] [address] [place] [address], [facility] PLAT CNT 183 10*3/uL Normal 150-400 [facility] Comment on above: Order Comment: No: D o not add to previous draw Performed By: #### 1 0070, 14322, 65115, 32122 #### [facility] [address] [place] [address], [facility] RBC (Bld) [#/Vol] 4.92 10*6/uL Normal 4.20-5.70 [facility] Comment on above: Order Comment: No: D o not add to previous draw Performed By: #### 1 0070, 19569, 59237, 26043 #### [facility] [address] [place] [id number], [facility] WBC (Bld) [#/Vol] 9.70 10*3/uL Normal 4.00-10.60 [facility] Comment on above: Order Comment: No: D o not add to previous draw Performed By: #### 1 0070, 27605, 86947, 36358 #### [facility] [address] [place] [address], [place] LIPASE BLOODon 07-25-2021 LIPASE 34 Units/L Normal 11-82 [facility] Comment on above: Order Comment: No: D o not add to previous draw Performed By: #### 1 0070, 44262, 04357, 13010 #### [facility] [address] [place] [address], [facility] LIVER BATTERYon 07-25-2021 Albumin [Mass/Vol] 3.0 g/dL Low 3.5-5.7 [facility] Comment on above: Order Comment: No: D o not add to previous draw Performed By: #### 1 0070, 07443, 55645, 08480 #### [facility] [address] [place] [address], [place] ALKALINE PHOSPH 113 IU/L High 34-104 [facility] Comment on above: Order Comment: No: D o not add to previous draw Performed By: #### 1 0070, 86061, 65100, 03846 #### [facility] [address] [place] [address], [place] ALT [Catalytic activity/Vol] 37 U/L Normal 7-52 [facility] Comment on above: Order Comment: No: D o not add to previous draw Performed By: #### 1 0070, 23098, 87864, 06198 #### [facility] [address] [place] [address], [place] AST [Catalytic activity/Vol] 36 U/L Normal 13-39 [facility] Comment on above: Order Comment: No: D o not add to previous draw Performed By: #### 1 0070, 43634, 67687, 58077 #### [facility] [address] [place] [address], [place] Bilirubin [Mass/Vol] 0.6 mg/dL Normal 0.3-1.0 [facility] Comment on above: Order Comment: No: D o not add to previous draw Performed By: #### 1 0070, 04573, 25555, 59314 #### [facility] [address] [place] [address], [place] Bilirubin.direct [Mass/Vol] 0.1 mg/dL Normal 0.0-0.2 [facility] Comment on above: Order Comment: No: D o not add to previous draw Performed By: #### 1 0070, 81662, 81761, 66361 #### [facility] [address] [place] [address], [place] Protein [Mass/Vol] 5.3 g/dL Low 6.0-8.3 [facility] Comment on above: Order Comment: No: D o not add to previous draw Performed By: #### 1 0070, 09252, 97489, 45508 #### [facility] [address] [place] [address], [place] POC GLUCOSE LABon 07-25-2021 Glucose [Mass/Vol] 388 mg/dL High 70-100 [facility] Comment on above: Performed By: #### 1 0070, 86099, 12769, 34690 #### [facility] [address] [place] [address], [place] Glucose [Mass/Vol] 173 mg/dL High 70-100 [facility] Comment on above: Performed By: #### 8 5499 #### [facility] [address] [place] [address], [place] Glucose [Mass/Vol] 178 mg/dL High 70-100 [facility] Comment on above: Performed By: #### 8 1099 #### [facility] [address] [place] [address], [place] Glucose [Mass/Vol] 106 mg/dL High 70-100 [facility] Comment on above: Performed By: #### 1 0, 12010, 31065, 50973 #### [facility] [address] [place] [address], [facility] PROTHROMBIN TIMEon 10-20-202 1 INR Coag (PPP) [Relative time] 1.30 {INR} High 0.91-1.16 [facility] Comment on above: Order Comment: No: [...] CHEST 1995;108:231S-246S. Performed By: #### 1 0, 43383, 88903, 37799 #### [facility] [address] [place] [address], [facility] PT Coag (PPP) [Time] 16.2 s High 12.3-14.8 [facility] Comment on above: Order Comment: No: D o not add to previous draw Result Comment: ALL RESULTS MUST BE INTERPRETED WITH RESPECT TO BLOOD DRAWING ARTIFACT OR DILUTION ERROR OF ANTICOAGULANT AT THE TIME OF SAMPLING. Performed By: #### 1 0, 30957, 20467, 51527 #### [facility] [address] [place] [address], [facility] UFH HEPARIN ASSAYon 07-25-20 UNFRACTIONATED HEPARIN <0.10 Critically low 0.30-0.70 [facility] Comment on above: Result Comment: Resu lts called. [place]ur[place] [address], 25-Jul-2021. Patient is not on anything that would raise the uFH value per nurse Caitlin. Rivaroxaban and Apixaban will interfere with the anti Xa assay used to monitor UFH and LMWH. Performed By: #### 1 0070, 28435, 90698, 23196 #### [facility] [address] [place] [address], [facility] UNFRACTIONATED HEPARIN <0.10 Critically low 0.30-0.70 [facility] Comment on above: Result Comment: Resu lt checked and called. Accurately read back by Caitlin Koch RN at 1024 Rivaroxaban and Apixaban will interfere with the anti Xa assay used to monitor UFH and LMWH. Performed By: #### 1 0070, 72607, 20882, 66468 #### [facility] [address] [place] [address], [facility] BASIC METABOLIC PANELon 07-06 Calcium [Mass/Vol] 8.7 mg/dL Normal 8.6-10.3 [facility] Comment on above: Order Comment: No: D o not add to previous draw Performed By: #### 0 0071, 83739 #### [facility] [address] [place] [address], [place] Chloride [Moles/Vol] 105 mmol/L Normal 98-107 [facility] Comment on above: Order Comment: No: D o not add to previous draw Performed By: #### 0 0071, 52473 #### [facility] [address] [place] [address], [place] CO2 [Moles/Vol] 30 mmol/L Normal 21-31 [facility] Comment on above: Order Comment: No: D o not add to previous draw Performed By: #### 0 0071, 59492 #### [facility] [address] [place] [address], [place] Creatinine [Mass/Vol] 1.52 mg/dL High 0.70-1.30 [facility] Comment on above: Order Comment: No: D o not add to previous draw Performed By: #### 0 0071, 30349 #### [facility] [address] [place] [address], [facility] eGFR- 57 ml/min/1.73sq m Abnormal >60 [facility] Comment on above: Order Comment: No: D o not add to previous draw Performed By: #### 0 0071, 39486 #### [facility] [address] [place] [address], [facility] eGFR- non- 47 ml/min/1.73sq m Abnormal >60 [facility] Comment on above: Order Comment: No: D o not add to previous draw Performed By: #### 0 0071, 12433 #### [facility] [address] [place] [address], [place] Glucose [Mass/Vol] 331 mg/dL High 70-100 [facility] Comment on above: Order Comment: No: D o not add to previous draw Performed By: #### 0 0071, 44776 #### [facility] [address] [place] [address], [place] Potassium [Moles/Vol] 4.3 mmol/L Normal 3.5-5.1 [facility] Comment on above: Order Comment: No: D o not add to previous draw Performed By: #### 0 0071, 22121 #### [facility] [address] [place] [address], [place] Sodium [Moles/Vol] 139 mmol/L Normal 136-145 [facility] Comment on above: Order Comment: No: D o not add to previous draw Performed By: #### 0 0071, 46206 #### [facility] [address] [place] [address], [facility] Urea nitrogen [Mass/Vol] 26 mg/dL High 7-25 [facility] Comment on above: Order Comment: No: D o not add to previous draw Performed By: #### 0 0071, 03504 #### [facility] [address] [place] [id number], [facility] CBC COMPLETE BLOOD COUNTon Erythrocyte distribution width (RBC) [Ratio] 13.2 % Normal 11.5-15.0 [facility] Comment on above: Order Comment: No: D o not add to previous draw Performed By: #### 1 0070, 89219, 14512, 40464 #### [facility] [address] Hematocrit (Bld) [Volume fraction] 42.9 % Normal 39.0-50.0 [facility] Comment on above: Order Comment: No: D o not add to previous draw Performed By: #### 1 0070, 23075, 00035, 89051 #### [facility] [address] [place] [address], [facility] Hemoglobin (Bld) [Mass/Vol] 13.7 g/dL Normal 13.0-17.0 [facility] Comment on above: Order Comment: No: D o not add to previous draw Performed By: #### 1 0070, 82072, 05984, 12516 #### [facility] [address] [place] [address], [facility] MCH (RBC) [Entitic mass] 30.9 pg Normal 27.0-33.0 [facility] Comment on above: Order Comment: No: D o not add to previous draw Performed By: #### 1 0070, 19509, 86596, 84794 #### [facility] [address] MCHC (RBC) [Mass/Vol] 31.9 g/dL Low 32.0-35.0 [facility] Comment on above: Order Comment: No: D o not add to previous draw Performed By: #### 1 0070, 25316, 08725, 03426 #### [facility] [address] [place] [id number], [facility] MCV (RBC) [Entitic vol] 96.6 fL Normal 82.0-98.0 [facility] Comment on above: Order Comment: No: D o not add to previous draw Performed By: #### 1 0070, 94657, 08878, 60522 #### [facility] [address] [place] [address], [facility] Nucleated RBC/100 WBC (Bld) [Ratio] 0 % Normal 0-0 [facility] Comment on above: Order Comment: No: D o not add to previous draw Performed By: #### 1 0070, 12313, 07546, 73605 #### [facility] [address] [place] [address], [facility] PLAT CNT 184 10*3/uL Normal 150-400 [facility] Comment on above: Order Comment: No: D o not add to previous draw Performed By: #### 1 0070, 69179, 28014, 64570 #### [facility] [address] [facility] [place] [address], [facility] RBC (Bld) [#/Vol] 4.44 10*6/uL Normal 4.20-5.70 [facility] Comment on above: Order Comment: No: D o not add to previous draw Performed By: #### 1 0070, 48801, 14660, 08317 #### [facility] [address] [place] [id number], [facility] WBC (Bld) [#/Vol] 8.42 10*3/uL Normal 4.00-10.60 [facility] Comment on above: Order Comment: No: D o not add to previous draw Performed By: #### 1 0070, 57431, 20227, 17130 #### [address] ERCPon 07-24-2021 ERCP [facility] Department of Radiology [address] [place] [id number] Patient Name: ANDRY PIERRE : 1960 Sex: M Age: Race: White Pt. Location: [address] [place] [address] Patient Status: I Ordered Date: 07/24/2021 7:00:00 [...] details. Electronically signed: Khoa Chahal. Transcribed by: [email or web address], User Resident: Electronically Signed by: KHOA CHAHAL @ 07/25/2021 08:48 AM Normal [facility] Comment on above: Order Comment: ERCP Endoscopy Reporton Endoscopy Report MR#: [id number] [facility] Pt. Name: Andry Pierre Surgery Date: 07/24/2021 Room #: [id number] Date of : 1960 PROCEDURE NOTE ATTENDING: Amy Remy M.D. POURER CRANE LADLE: Cyrus Decker MD PROCEDURE: ERCP with biliary [...] Decker MD Date Trans: 07/24/2021 09:24 P/michaela DN_[id number] cc: Say Mccormick M.D. [address] [facility] [phone] Normal [facility] LIVER BATTERYon 07-24-2021 Albumin [Mass/Vol] 3.3 g/dL Low 3.5-5.7 [facility] Comment on above: Order Comment: No: D o not add to previous draw Performed By: #### 0 6033, 45370 #### [facility] [address] [place] [address], [facility] ALKALINE PHOSPH 106 IU/L High 34-104 [facility] Comment on above: Order Comment: No: D o not add to previous draw Performed By: #### 0 4251, 39354 #### [facility] [address] [place] [address], [place] ALT [Catalytic activity/Vol] 26 U/L Normal 7-52 [facility] Comment on above: Order Comment: No: D o not add to previous draw Performed By: #### 0 0071, 10460 #### [facility] [address] [place] [address], [place] AST [Catalytic activity/Vol] 17 U/L Normal 13-39 [facility] Comment on above: Order Comment: No: D o not add to previous draw Performed By: #### 0 0071, 06785 #### [facility] [address] [place] [address], [place] Bilirubin [Mass/Vol] 0.3 mg/dL Normal 0.3-1.0 [facility] Comment on above: Order Comment: No: D o not add to previous draw Performed By: #### 0 0071, 90570 #### [facility] [address] [place] [address], [place] Bilirubin.direct [Mass/Vol] 0.0 mg/dL Normal 0.0-0.2 [facility] Comment on above: Order Comment: No: D o not add to previous draw Performed By: #### 0 0071, 99650 #### [facility] [address] [place] [address], [place] Protein [Mass/Vol] 6.1 g/dL Normal 6.0-8.3 [facility] Comment on above: Order Comment: No: D o not add to previous draw Performed By: #### 0 0071, 22110 #### [facility] [address] [place] [address], [place] POC GLUCOSE LABon 07-24-2021 Glucose [Mass/Vol] 89 mg/dL Normal 70-100 [facility] Comment on above: Performed By: #### 8 5499 #### [facility] [address] [place] [address], [place] Glucose [Mass/Vol] 89 mg/dL Normal 70-100 [facility] Comment on above: Performed By: #### 1 0070, 34498, 86140, 08800 #### [facility] [address] [place] [address], [place] Glucose [Mass/Vol] 166 mg/dL High 70-100 [facility] Comment on above: Performed By: #### 8 5499 #### [facility] [address] [place] [address], [place] Glucose [Mass/Vol] 391 mg/dL High 70-100 [facility] Comment on above: Performed By: #### 8 5499 #### [facility] [address] [place] [address], [facility] POC SARS COV2 ANTIGEN NEGATI VEon 07-24-2021 POC SARS COV2 ANTIGEN NEG Negative Normal NEGATIVE [facility] Comment on above: Result Comment: Nega [...] signs and symptoms consistent with COVID-19. The [employer] [employer] COVID-19 Ag Card is a lateral flow [...] Accreditation. Performed By: #### 8 5499 #### [facility] [address] PROTHROMBIN TIMEon INR Coag (PPP) [Relative time] 1.53 {INR} High 0.91-1.16 [facility] Comment on above: Order Comment: No: [...] CHEST 1995;108:231S-246S. Performed By: #### 1 0070, 92561, 17992, 39954 #### [facility] [address] PT Coag (PPP) [Time] 18.3 s High 12.3-14.8 [facility] Comment on above: Order Comment: No: D o not add to previous draw Result Comment: ALL RESULTS MUST BE INTERPRETED WITH RESPECT TO BLOOD DRAWING ARTIFACT OR DILUTION ERROR OF ANTICOAGULANT AT THE TIME OF SAMPLING. Performed By: #### 1 0070, 54186, 84320, 19388 #### [facility] [address] [place] [address], [facility] COMP METABOLIC PANELon 07-23 Albumin [Mass/Vol] 3.5 g/dL Normal 3.5-5.7 [facility] Comment on above: Order Comment: No: D o not add to previous draw Performed By: #### 8 5499 #### [facility] [address] [place] [address], [place] ALKALINE PHOSPH 122 IU/L High 34-104 [facility] Comment on above: Order Comment: No: D o not add to previous draw Performed By: #### 8 5499 #### [facility] [address] [place] [address], [place] ALT [Catalytic activity/Vol] 32 U/L Normal 7-52 [facility] Comment on above: Order Comment: No: D o not add to previous draw Performed By: #### 8 5499 #### [facility] [address] [place] [address], [place] AST [Catalytic activity/Vol] 22 U/L Normal 13-39 [facility] Comment on above: Order Comment: No: D o not add to previous draw Performed By: #### 8 5499 #### [facility] [address] [place] [address], [place] Bilirubin [Mass/Vol] 0.4 mg/dL Normal 0.3-1.0 [facility] Comment on above: Order Comment: No: D o not add to previous draw Performed By: #### 8 5499 #### [facility] [address] [place] [address], [place] Calcium [Mass/Vol] 8.5 mg/dL Low 8.6-10.3 [facility] Comment on above: Order Comment: No: D o not add to previous draw Performed By: #### 8 5499 #### [facility] [address] [place] [address], [place] Chloride [Moles/Vol] 110 mmol/L High 98-107 [facility] Comment on above: Order Comment: No: D o not add to previous draw Performed By: #### 8 5499 #### [facility] [address] [place] [address], [place] CO2 [Moles/Vol] 23 mmol/L Normal 21-31 [facility] Comment on above: Order Comment: No: D o not add to previous draw Performed By: #### 8 5499 #### [facility] [address] [place] [address], [place] Creatinine [Mass/Vol] 1.33 mg/dL High 0.70-1.30 [facility] Comment on above: Order Comment: No: D o not add to previous draw Performed By: #### 8 5499 #### [facility] [address] [place] [address], [place] eGFR- non- 55 ml/min/1.73sq m Abnormal >60 [facility] Comment on above: Order Comment: No: D o not add to previous draw Performed By: #### 8 5499 #### [facility] [address] [place] [address], [place] GFR/1.73 sq M.predicted among blacks MDRD (S/P/Bld) [Vol rate/Area] mL/min/{1.73_m2} Normal >60 [facility] Comment on above: Order Comment: No: D o not add to previous draw Performed By: #### 8 5499 #### [facility] [address] [place] [address], [place] Glucose [Mass/Vol] 198 mg/dL High 70-100 [facility] Comment on above: Order Comment: No: D o not add to previous draw Performed By: #### 8 5499 #### [facility] [address] [place] [address], [place] Potassium [Moles/Vol] 3.5 mmol/L Normal 3.5-5.1 [facility] Comment on above: Order Comment: No: D o not add to previous draw Performed By: #### 8 5499 #### [facility] [address] [place] [address], [place] Protein [Mass/Vol] 6.3 g/dL Normal 6.0-8.3 [facility] Comment on above: Order Comment: No: D o not add to previous draw Performed By: #### 8 5499 #### [facility] [address] [place] [address], [place] Sodium [Moles/Vol] 142 mmol/L Normal 136-145 [facility] Comment on above: Order Comment: No: D o not add to previous draw Performed By: #### 8 5499 #### [facility] [address] [place] [address], [place] Urea nitrogen [Mass/Vol] 25 mg/dL Normal 7-25 [facility] Comment on above: Order Comment: No: D o not add to previous draw Performed By: #### 8 5499 #### [facility] [address] [place] [address], [place] POC GLUCOSE LABon 07-23-2021 Glucose [Mass/Vol] 325 mg/dL High 70-100 [facility] Comment on above: Performed By: #### 8 5499 #### [facility] [address] [place] [address], [place] Glucose [Mass/Vol] 290 mg/dL High 70-100 [facility] Comment on above: Performed By: #### 1 0070, 19268, 29200, 03498 #### [facility] [address] [place] [address], [place] Glucose [Mass/Vol] 253 mg/dL High 70-100 [facility] Comment on above: Performed By: #### 1 0070, 79920, 05979, 19161 #### [facility] [address] [place] [address], [place] Glucose [Mass/Vol] 211 mg/dL High 70-100 [facility] Comment on above: Performed By: #### 8 5499 #### [facility] [address] PROTHROMBIN TIMEon INR Coag (PPP) [Relative time] 1.92 {INR} High 0.91-1.16 [facility] Comment on above: Order Comment: Dirk [...] 1995;108:231S-246S. Performed By: #### 8 5499 #### [facility] [address] [facility] [place] [address], [facility] PT Coag (PPP) [Time] 21.9 s High 12.3-14.8 [facility] Comment on above: Order Comment: Ghassano wn Result Comment: ALL RESULTS MUST BE INTERPRETED WITH RESPECT TO BLOOD DRAWING ARTIFACT OR DILUTION ERROR OF ANTICOAGULANT AT THE TIME OF SAMPLING. Performed By: #### 8 5499 #### [facility] [address] [place] [address], [facility] APTTon 07-22-2021 aPTT Coag (Bld) [Time] 37.1 s High 25.0-35.0 [facility] Comment on above: Order Comment: No: [...] THIS PURPOSE. Performed By: #### 1 0070, 40685, 93644, 18075 #### [facility] [address] [place] [address], [facility] BASIC METABOLIC PANELon 10- Calcium [Mass/Vol] 8.3 mg/dL Low 8.6-10.3 [facility] Comment on above: Order Comment: No: D o not add to previous draw Performed By: #### 8 5499 #### [facility] [address] [place] [address], [facility] Chloride [Moles/Vol] 109 mmol/L High 98-107 [facility] Comment on above: Order Comment: No: D o not add to previous draw Performed By: #### 8 5499 #### [facility] [address] [place] [address], [facility] CO2 [Moles/Vol] 28 mmol/L Normal 21-31 [facility] Comment on above: Order Comment: No: D o not add to previous draw Performed By: #### 8 5499 #### [facility] [address] [place] [address], [facility] Creatinine [Mass/Vol] 1.48 mg/dL High 0.70-1.30 [facility] Comment on above: Order Comment: No: D o not add to previous draw Performed By: #### 8 5499 #### [facility] [address] [place] [address], [facility] eGFR- 59 ml/min/1.73sq m Abnormal >60 [facility] Comment on above: Order Comment: No: D o not add to previous draw Performed By: #### 8 5499 #### [facility] [address] [place] [address], [place] eGFR- non- 48 ml/min/1.73sq m Abnormal >60 [facility] Comment on above: Order Comment: No: D o not add to previous draw Performed By: #### 8 5499 #### [facility] [address] [place] [address], [place] Glucose [Mass/Vol] 216 mg/dL High 70-100 The [facility] Comment on above: Order Comment: No: D o not add to previous draw Performed By: #### 8 [id number] #### [facility] [address] [place] [address], [place] Potassium [Moles/Vol] 4.6 mmol/L Normal 3.5-5.1 [facility] Comment on above: Order Comment: No: D o not add to previous draw Performed By: #### 8 [id number] #### [facility] [address] [place] [address], [place] Sodium [Moles/Vol] 141 mmol/L Normal 136-145 [facility] Comment on above: Order Comment: No: D o not add to previous draw Performed By: #### 8 [id number] #### [facility] [address] [place] [address], [place] Urea nitrogen [Mass/Vol] 26 mg/dL High 7-25 [facility] Comment on above: Order Comment: No: D o not add to previous draw Performed By: #### 8 [id number] #### [facility] [address] [place] [address], [place] CBC COMPLETE BLOOD COUNTon Erythrocyte distribution width (RBC) [Ratio] 13.2 % Normal 11.5-15.0 [facility] Comment on above: Order Comment: No: D o not add to previous draw Performed By: #### 8 [id number] #### [facility] [address] [place] [address], [facility] Hematocrit (Bld) [Volume fraction] 45.8 % Normal 39.0-50.0 [facility] Comment on above: Order Comment: No: D o not add to previous draw Performed By: #### 8 [id number] #### [facility] [address] [place] [address], [facility] Hemoglobin (Bld) [Mass/Vol] 14.8 g/dL Normal 13.0-17.0 [facility] Comment on above: Order Comment: No: D o not add to previous draw Performed By: #### 8 [id number] #### [facility] [address] [place] [id number], [facility] MCH (RBC) [Entitic mass] 31.0 pg Normal 27.0-33.0 [facility] Comment on above: Order Comment: No: D o not add to previous draw Performed By: #### 8 [id number] #### [facility] [address] [place] [id number], [facility] MCHC (RBC) [Mass/Vol] 32.3 g/dL Normal 32.0-35.0 [facility] Comment on above: Order Comment: No: D o not add to previous draw Performed By: #### 8 [id number] #### [facility] [address] [place] [address], [facility] MCV (RBC) [Entitic vol] 95.8 fL Normal 82.0-98.0 [facility] Comment on above: Order Comment: No: D o not add to previous draw Performed By: #### 8 [id number] #### [facility] [address] [place] [id number], [facility] Nucleated RBC/100 WBC (Bld) [Ratio] 0 % Normal 0-0 [facility] Comment on above: Order Comment: No: D o not add to previous draw Performed By: #### 8 [id number] #### [facility] [address] [place] [address], [facility] PLAT CNT 209 10*3/uL Normal 150-400 [facility] Comment on above: Order Comment: No: D o not add to previous draw Performed By: #### 8 [id number] #### [facility] [address] [place] [id number], [facility] RBC (Bld) [#/Vol] 4.78 10*6/uL Normal 4.20-5.70 [facility] Comment on above: Order Comment: No: D o not add to previous draw Performed By: #### 8 [id number] #### [facility] [address] [place] [address], [facility] WBC (Bld) [#/Vol] 8.89 10*3/uL Normal 4.00-10.60 [facility] Comment on above: Order Comment: No: D o not add to previous draw Performed By: #### 8 [id number] #### [facility] [address] [place] [id number], [facility] LIVER BATTERYon 07-22-2021 Albumin [Mass/Vol] 3.2 g/dL Low 3.5-5.7 [facility] Comment on above: Performed By: #### 8 [id number] #### [facility] [address] [place] [address], [facility] ALKALINE PHOSPH 111 IU/L High 34-104 [facility] Comment on above: Performed By: #### 8 [id number] #### [facility] [address] [place] [address], [facility] ALT [Catalytic activity/Vol] 23 U/L Normal 7-52 [facility] Comment on above: Performed By: #### 8 [id number] #### [facility] [address] [place] [id number], [facility] AST [Catalytic activity/Vol] 17 U/L Normal 13-39 [facility] Comment on above: Performed By: #### 8 [id number] #### [facility] [address] [place] [address], [place] Bilirubin [Mass/Vol] 0.3 mg/dL Normal 0.3-1.0 [facility] Comment on above: Performed By: #### 8 [id number] #### [facility] [address] [place] [address], [place] Bilirubin.direct [Mass/Vol] 0.0 mg/dL Normal 0.0-0.2 [facility] Comment on above: Performed By: #### 8 [id number] #### [facility] [address] [place] [address], [place] Protein [Mass/Vol] 5.5 g/dL Low 6.0-8.3 [facility] Comment on above: Performed By: #### 8 [id number] #### [facility] [address] [place] [address], [place] MAGNESIUM BLOODon 07-22-2021 Magnesium [Mass/Vol] 2.0 mg/dL Normal 1.9-2.7 [facility] Comment on above: Order Comment: No: D o not add to previous draw Performed By: #### 8 [id number] #### [facility] [address] [place] [address], [place] PHOSPHORUS BLOODon Phosphate [Mass/Vol] 3.0 mg/dL Normal 2.5-5.0 [facility] Comment on above: Order Comment: No: D o not add to previous draw Performed By: #### 8 [id number] #### [facility] [address] [place] [address], [place] POC GLUCOSE LABon 07-22-2021 Glucose [Mass/Vol] 223 mg/dL High 70-100 [facility] Comment on above: Performed By: #### 1 0070, 70385, 02507, 20855 #### [facility] [address] [place] [address], [place] Glucose [Mass/Vol] 222 mg/dL High 70-100 [facility] Comment on above: Performed By: #### 8 [id number] #### [facility] [address] Glucose [Mass/Vol] 245 mg/dL High 70-100 [facility] Comment on above: Performed By: #### 8 [id number] #### [facility] [address] [place] [address], [facility] Glucose [Mass/Vol] 202 mg/dL High 70-100 [facility] Comment on above: Performed By: #### 1 0070, 67021, 59540, 73746 #### [facility] [address] [facility]. [address] PROTHROMBIN TIMEon 1 INR Coag (PPP) [Relative time] 2.27 {INR} High 0.91-1.16 [facility] Comment on above: Order Comment: No: D [...] CHEST 1995;108:[id number]. Performed By: #### 1 0070, 33274, 25837, 28559 #### [facility] [address] [place] [address], [facility] PT Coag (PPP) [Time] 24.9 s High 12.3-14.8 [facility] Comment on above: Order Comment: No: D o not add to previous draw Result Comment: ALL RESULTS MUST BE INTERPRETED WITH RESPECT TO BLOOD DRAWING ARTIFACT OR DILUTION ERROR OF ANTICOAGULANT AT THE TIME OF SAMPLING. Performed By: #### 1 0070, 00351, 69836, 30093 #### [facility] [address] [place] [address], [facility] Basic Metabolic Panelon 10- Calcium [Mass/Vol] 9.4 mg/dL Normal 8.2-10.2 [facility] Comment on above: Performed By: #### H EPATIC, CBC, LIPASE, BMP #### [facility] [address] Chloride [Moles/Vol] 103 mmol/L Normal 95-114 [facility] Comment on above: Performed By: #### H EPATIC, CBC, LIPASE, BMP #### [facility] [address] CO2 [Moles/Vol] 26.9 mmol/L Normal 22.0-30.0 [facility] Comment on above: Performed By: #### H EPATIC, CBC, LIPASE, BMP #### [facility] [address] [place] [id number] [place] Creatinine [Mass/Vol] 1.66 mg/dL High 0.64-1.27 [facility] Comment on above: Performed By: #### H EPATIC, CBC, LIPASE, BMP #### [facility] [address] [place] [id number] [place] Creatinine Clr Calc Pharmacy 68.90 [facility] Comment on above: Performed By: #### H EPATIC, CBC, LIPASE, BMP #### [facility] [address] [place] [id number] [facility] Estimated GFR ( Beata 51 [facility] Comment on above: Result Comment: GFR estimated reference range: According to KDOQI guidelines, <60 ml/min/1.73m2 is sufficient to diagnose a patient with chronic kidney disease. Performed By: #### H EPATIC, CBC, LIPASE, BMP #### [facility] [address] Estimated GFR (Non- Am 42 Normal [facility] Comment on above: Performed By: #### H EPATIC, CBC, LIPASE, BMP #### [facility] [address] Glucose [Mass/Vol] 442 mg/dL High 70-100 [facility] Comment on above: Result Comment: [facility] Glucose Reference Range is dependent on time and content of last meal. Glucose of more than 200 mg/dL in a nonstressed, ambulatory subject supports the diagnosis of Diabetes Mellitus. ADA recommended reference range Performed By: #### H EPATIC, CBC, LIPASE, BMP #### [facility] [address] Potassium [Moles/Vol] 4.1 mmol/L Normal 3.5-5.1 [facility] Comment on above: Performed By: #### H EPATIC, CBC, LIPASE, BMP #### [facility] [address] Sodium [Moles/Vol] 140 mmol/L Normal 136-146 [facility] Comment on above: Performed By: #### H EPATIC, CBC, LIPASE, BMP #### [facility] [address] [place] [address] Urea nitrogen [Mass/Vol] 29 mg/dL High 9-23 [facility] Comment on above: Performed By: #### H EPATIC, CBC, LIPASE, BMP #### [facility] [address] [place] [address] COVID-19 Antigenon 1 COVID-19 Antigen Healthcare Worker?: [...] its performance Tamera Disclaimer characteristic determined by [employer] and Tamera Disclaimer validated at [facility]. This Tamera Disclaimer test has not been [...] is terminated or revoked sooner. PERFORMED BY: [place] [address] PATHOLOGIST FULL ROLL INSPECTOR TO [place] M.D. Normal [facility] Comment on above: Performed By: #### C OVID-19 TAMERA, SOFIANEG, COVID 19 [facility] #### [address] COVID-[facility] SARS-CoV-2 (COVID-19) RNA EMMY+probe Ql (Unsp spec) Negative Normal Negative [facility] Comment on above: Order Comment: Healt hcare Worker?: Y Result Comment: Testing for SARS-CoV-2 by RT-PCR This test was developed and its performance characteristics determined by [employer]) and validated at the [facility]. This test has not been FDA cleared [...] is terminated or revoked sooner. PERFORMED BY: [place] [address] PATHOLOGIST FULL ROLL INSPECTOR TO [place] M.D. Performed By: #### C OVID-19 QUINTIN PHILIP, COVID 19 [facility] #### [facility] [address] [place] [id number] [facility] CT abdomen pelvis wo conon 1 CT abdomen pelvis wo con [facility] Main [place] [address] [place] [address] CT Scan Report Signed Patient: Andry Pierre MR#: [id number] 28 : 1960 Acct:[id number] Age/Sex: 60 / M ADM Date: 07/21/21 Loc: 4N Room: 2I6222-0 Type: ADM INOo Attending Dr: Feliciano Hernandez [...] Ricks Jr., M.D.07/21/2021 9:15 AM Dictation Location: [place] [address] Transcribed By: [facility] 07/21/21914 Dictated By: Duke Ricks Jr, MD 07/21/21903 Signed By: 07/21/21914 Normal [facility] Coagulation Profileon 2020 aPTT Coag (Bld) [Time] 37.9 s High 25.1-36.5 [facility] Comment on above: Result Comment: PERF ORMED BY: [place] [address] PATHOLOGIST FULL ROLL INSPECTOR TO [place] M.D. Performed By: #### P P #### [facility] [address] [place] [address] INR Coag (PPP) [Relative time] 2.0 {INR} Normal [facility] Comment on above: Result Comment: INR Therapeutic [...] 4.5 Performed By: #### P P #### [facility] [address] [place] [address] PT Coag (PPP) [Time] 22.5 s High 9.0-12.9 [facility] Comment on above: Performed By: #### P P #### [facility] [address] [place] [address] Complete Blood Count Auto Di ffon 07-21-2021 Basophils (Bld) [#/Vol] 0.1 10*3/uL Normal 0.0-0.2 [facility] Comment on above: Result Comment: PERF ORMED BY: [address] [place] [id number] PATHOLOGIST FULL ROLL INSPECTOR TO [place] M.D. Performed By: #### H EPATIC, CBC, LIPASE, BMP #### [address] Basophils/100 WBC (Bld) 0.6 % Normal . [facility] Comment on above: Performed By: #### H EPATIC, CBC, LIPASE, BMP #### [address] Eosinophils (Bld) [#/Vol] 0.4 10*3/uL Normal 0.0-0.45 [facility] Comment on above: Performed By: #### H EPATIC, CBC, LIPASE, BMP #### [address] Eosinophils/100 WBC (Bld) 4.3 % Normal . [facility] Comment on above: Performed By: #### H EPATIC, CBC, LIPASE, BMP #### [address] Erythrocyte distribution width (RBC) [Ratio] 13.7 % Normal 12.0-14.8 [facility] Comment on above: Performed By: #### H EPATIC, CBC, LIPASE, BMP #### [address] Hematocrit (Bld) [Volume fraction] 45.9 % Normal 38.8-50.0 [facility] Comment on above: Performed By: #### H EPATIC, CBC, LIPASE, BMP #### [address] Hemoglobin (Bld) [Mass/Vol] 15.4 g/dL Normal 13.0-17.0 [facility] Comment on above: Performed By: #### H EPATIC, CBC, LIPASE, BMP #### [address] Lymphocytes (Bld) [#/Vol] 2.9 10*3/uL Normal 1.00-4.8 [facility] Comment on above: Performed By: #### H EPATIC, CBC, LIPASE, BMP #### [place] [address] Lymphocytes/100 WBC (Bld) 28.4 % Normal . [facility] Comment on above: Performed By: #### H EPATIC, CBC, LIPASE, BMP #### [address] MCH (RBC) [Entitic mass] 32.0 pg Normal 27.5-35.2 [facility] Comment on above: Performed By: #### H EPATIC, CBC, LIPASE, BMP #### [address] MCV (RBC) [Entitic vol] 95.2 fL Normal 83.5-101 [facility] Comment on above: Performed By: #### H EPATIC, CBC, LIPASE, BMP #### [address] Mean Corpuscular HGB Conc 33.6 g/dL Normal 32.5-35.6 [facility] Comment on above: Performed By: #### H EPATIC, CBC, LIPASE, BMP #### [address] Monocytes (Bld) [#/Vol] 0.7 10*3/uL Normal 0.0-0.8 [facility] Comment on above: Performed By: #### H EPATIC, CBC, LIPASE, BMP #### [address] Monocytes/100 WBC (Bld) 6.7 % Normal . [facility] Comment on above: Performed By: #### H EPATIC, CBC, LIPASE, BMP #### [address] Neutrophils (Bld) [#/Vol] 6.0 10*3/uL Normal 1.8-7.7 [facility] Comment on above: Performed By: #### H EPATIC, CBC, LIPASE, BMP #### [address] Neutrophils/100 WBC (Bld) 60.0 % Normal . [facility] Comment on above: Performed By: #### H EPATIC, CBC, LIPASE, BMP #### [address] Nucleated RBC/100 WBC (Bld) [Ratio] 0.1 % Normal 0-0.5 [facility] Comment on above: Performed By: #### H EPATIC, CBC, LIPASE, BMP #### [address] Platelet mean volume (Bld) [Entitic vol] 8.7 fL Normal 6.6-10.1 [facility] Comment on above: Performed By: #### H EPATIC, CBC, LIPASE, BMP #### [address] Platelets (Bld) [#/Vol] 215 10*3/uL Normal 150-450 [facility] Comment on above: Performed By: #### H EPATIC, CBC, LIPASE, BMP #### [address] RBC (Bld) [#/Vol] 4.83 10*6/uL Normal 3.90-5.60 [facility] Comment on above: Performed By: #### H EPATIC, CBC, LIPASE, BMP #### [address] WBC (Bld) [#/Vol] 10.0 10*3/uL Normal 4.5-11.0 [facility] Comment on above: Performed By: #### H EPATIC, CBC, LIPASE, BMP #### [address] Glucose Poct Glucometerson 1 Commemt1 Glu2: Cleaned Meter Normal [facility] Comment on above: Result Comment: PERF ORMED BY: [place] [address] PATHOLOGIST FULL ROLL INSPECTOR TO [place] M.D. Performed By: #### H EPATIC, CBC, LIPASE, BMP #### [address] Glucose [Mass/Vol] 267 mg/dL Normal [facility] Comment on above: Result Comment: [place] [facility] Glucose Reference Range is dependent on time and content of last meal. Glucose of more than 200 mg/dL in a nonstressed, ambulatory subject supports the diagnosis of Diabetes Mellitus. Performed By: #### H EPATIC, CBC, LIPASE, BMP #### [address] Commemt1 Glu2: Cleaned Meter [facility] Comment on above: Result Comment: PERF ORMED BY: [place] [address] PATHOLOGIST FULL ROLL INSPECTOR TO [place] M.D. Performed By: #### H EPATIC, CBC, LIPASE, BMP #### [address] Glucose [Mass/Vol] 252 mg/dL Normal [facility] Comment on above: Result Comment: [place] [facility] Glucose Reference Range is dependent on time and content of last meal. Glucose of more than 200 mg/dL in a nonstressed, ambulatory subject supports the diagnosis of Diabetes Mellitus. Performed By: #### H EPATIC, CBC, LIPASE, BMP #### [address] Commemt1 Glu2: Cleaned Meter [facility] Comment on above: Result Comment: PERF ORMED BY: [place] [address] PATHOLOGIST FULL ROLL INSPECTOR TO [place] M.D. Performed By: #### H EPATIC, CBC, LIPASE, BMP #### [address] Glucose [Mass/Vol] 100 mg/dL Normal [facility] Comment on above: Result Comment: [place] [facility] Glucose Reference Range is dependent on time and content of last meal. Glucose of more than 200 mg/dL in a nonstressed, ambulatory subject supports the diagnosis of Diabetes Mellitus. Performed By: #### H EPATIC, CBC, LIPASE, BMP #### [address] Glucose [Mass/Vol] 140 mg/dL Normal [facility] Comment on above: Result Comment: [facility] Glucose Reference Range is dependent on time and content of last meal. Glucose of more than 200 mg/dL in a nonstressed, ambulatory subject supports the diagnosis of Diabetes Mellitus. PERFORMED BY: [place] [address] PATHOLOGIST FULL ROLL INSPECTOR TO [place] M.D. Performed By: #### H EPATIC, CBC, LIPASE, BMP #### [facility] [address] [place] [address] Hepatic Panelon 07-21-2021 Albumin [Mass/Vol] 3.5 g/dL Normal 3.2-5.5 [facility] Comment on above: Performed By: #### H EPATIC, CBC, LIPASE, BMP #### [facility] [address] [place] [address] Albumin/Globulin [Mass ratio] 1.1 {ratio} Normal [facility] Comment on above: Performed By: #### H EPATIC, CBC, LIPASE, BMP #### [facility] [address] [place] [address] ALP [Catalytic activity/Vol] 115 U/L High 32-92 [facility] Comment on above: Performed By: #### H EPATIC, CBC, LIPASE, BMP #### [facility] [address] [place] [address] ALT [Catalytic activity/Vol] 30 U/L Normal 10-60 [facility] Comment on above: Performed By: #### H EPATIC, CBC, LIPASE, BMP #### [facility] [address] [place] [address] AST [Catalytic activity/Vol] 19 U/L Normal 10- [facility] Comment on above: Performed By: #### H EPATIC, CBC, LIPASE, BMP #### [facility] [address] [place] [address] Bilirubin [Mass/Vol] 0.7 mg/dL Normal 0.3-1.2 [facility] Comment on above: Performed By: #### H EPATIC, CBC, LIPASE, BMP #### [facility] [address] Bilirubin,Indirect Not performed Normal [facility] Comment on above: Performed By: #### H EPATIC, CBC, LIPASE, BMP #### [facility] [address] Bilirubin.indirect [Mass/Vol] mg/dL Normal 0.0-0.4 [facility] Comment on above: Performed By: #### H EPATIC, CBC, LIPASE, BMP #### [address] Globulin (S) [Mass/Vol] 3.2 g/dL Normal [facility] Comment on above: Performed By: #### H EPATIC, CBC, LIPASE, BMP #### [address] Protein [Mass/Vol] 6.7 g/dL Normal 6.1-7.9 [facility] Comment on above: Performed By: #### H EPATIC, CBC, LIPASE, BMP #### [address] Lactic Acidon 07-21-2021 Lactate [Moles/Vol] 1.2 mmol/L Normal 0.5-2.2 [facility] Comment on above: Result Comment: PERF ORMED BY: [place] [address] PATHOLOGIST FULL ROLL INSPECTOR TO [place] M.D. Performed By: #### L ACTIC #### [address] Lipaseon 07-21-2021 Lipase [Catalytic activity/Vol] 43.0 U/L Normal 22-51 [facility] Comment on above: Result Comment: PERF ORMED BY: [place] [address] PATHOLOGIST FULL ROLL INSPECTOR TO [place] M.D. Performed By: #### H EPATIC, CBC, LIPASE, BMP #### [address] [place] [address] [place] Tamera Ag Negativeon 07-21-20 Tamera Ag Negative Negative Normal Negative [facility] Comment on above: Result Comment: This is a duplicate Tamera SARS Antigen (GIOVANNA) result to be used for statistical tracking purpose only. PERFORMED BY: [place] [address] PATHOLOGIST FULL ROLL INSPECTOR TO [place] M.D. Performed By: #### C OVID-19 TAMERA, SOFIANEG, COVID 19 [facility] #### [facility] [address] [place] [address] Urinalysison 07-21-2021 Appearance (U) Clear Normal Clear [facility] Comment on above: Order Comment: Name Collection Type:: Clean-Voided Midstream Performed By: #### U A #### [address] Bilirubin,Urine Negative Normal Negative [facility] Comment on above: Order Comment: Name Collection Type:: Clean-Voided Midstream Performed By: #### U A #### [facility] [address] [place] [address] Color (U) Yellow Normal Yellow [facility] Comment on above: Order Comment: Name Collection Type:: Clean-Voided Midstream Performed By: #### U A #### [facility] [address] [place] [address] Glucose Ql (U) >=1000 High Normal [facility] Comment on above: Order Comment: Name Collection Type:: Clean-Voided Midstream Performed By: #### U A #### [facility] [address] [place] [address] [place] Ketones Ql (U) Negative Normal Negative [facility] Comment on above: Order Comment: Name Collection Type:: Clean-Voided Midstream Performed By: #### U A #### [facility] [address] [place] [address] Leukocyte esterase Test strip Ql (U) Negative Normal Negative [facility] Comment on above: Order Comment: Name Collection Type:: Clean-Voided Midstream Performed By: #### U A #### [place] [address] [place] Nitrite,Urine Negative Normal Negative [facility] Comment on above: Order Comment: Name Collection Type:: Clean-Voided Midstream Performed By: #### U A #### [address] Occult Blood,Urine Negative Normal Negative [facility] Comment on above: Order Comment: Name Collection Type:: Clean-Voided Midstream Result Comment: PERF ORMED BY: [place] [address] PATHOLOGIST FULL ROLL INSPECTOR TO [place] M.D. Performed By: #### U A #### [address] pH (U) 6.5 [pH] Normal 5.0-9.0 [facility] Comment on above: Order Comment: Name Collection Type:: Clean-Voided Midstream Performed By: #### U A #### [address] Protein,Urine Negative Normal Negative [facility] Comment on above: Order Comment: Name Collection Type:: Clean-Voided Midstream Performed By: #### U A #### [address] Specificy [place],Urine 1.026 Normal 1.001-1.030 [facility] Comment on above: Order Comment: Name Collection Type:: Clean-Voided Midstream Performed By: #### U A #### [address] Urobilinogen,Urine Normal Normal Normal [facility] Comment on above: Order Comment: Name Collection Type:: Clean-Voided Midstream Performed By: #### U A #### [address] General Surgery Office/Clini c Noteon 05-31-2021 [...] hematuria Head injury Heart disease 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 [facility] Comment on above: Result Comment: Elec tronically Signed By: NOE GEORGE, Andry Das\.br\Date and Time Signed: 05/31/21 11:26 EDT Ambulatory Clinical Summaryo 05-29-2021 Ambulatory Clinical Summary {[id number]}CD: [id number] [facility] Outside Colonoscopyon 2020 Outside Colonoscopy [id number]#1.00CD:127 [facility] Pathology Noteon 05-25-2021 Pathology Note [id number]#1.00CD:127 [facility] Provider Letter FTon 05-23 Provider Letter [facility] May 23, 2021 [facility], [address] [place] [id number] Re: ANDRY PIERRE Date of : 1960 Thank you for your referral of Andry Pierre who was seen on consultation on May 18, 2021, for Right upper quadrant pain and rectal bleeding, nausea, vomiting, and constipation. I have enclosed my consultation notes for your review. I will be happy to follow Andry should his symptoms persist. Sincerely, Andry Adames MD General Surgery [facility] Consent for Procedure/Surger yon 05-21-2021 Consent for Procedure/Surgery [id number]#1.00CD:127 [facility] Immunization Recordson 05-21 Immunization Records [id number]#1.00CD:127 Normal [facility] Ambulatory Clinical Summaryo n 05-18-2021 Ambulatory Clinical Summary {[id number]}CD: [id number] Normal [facility] General Surgery Office/Clini c Noteon 05-18-2021 General Surgery Office/Clinic Note HPI Staff Est patient , RUQ pain x 8 wks , u/s done 05/03/21 @ [facility]. 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 Normal [facility] Comment on above: Result Comment: Elec tronically Signed By: NOE GEORGE, Andry Daniel\Date and Time Signed: 05/18/21 15:[address] - CT Reporton 05-17-2021 RAD - [address] Report [id number]#1.00CD:127 Normal [facility] RAD - MISCon 05-17-2021 RAD - MISC [id number]#1.00CD:127 Normal [facility] RAD - MISC [id number]#1.00CD:127 Normal [facility] RAD - Ultrasound Reporton RAD - Ultrasound Report [id number]#1.00CD:127 Normal [facility] RAD - Ultrasound Reporton RAD - Ultrasound Report [id number]#1.00CD:127 Normal [facility] Physician Referralon 021 Physician Referral [id number]#1.00CD:127 [facility] Provider [facility] Provider Letter [facility] March 23, 2021 [facility], [address] [place] [address] Re: ANDRY PIERRE Date of : 1960 Thank you for your referral of Andry Pierre who was seen on consultation of excision of lump on the neck on March 14, 2021. I have enclosed my consultation notes for your review. I will be happy to follow Andry should his symptoms persist. Sincerely, Andry Adames MD General Surgery [facility] Ambulatory Clinical Summaryo n 03-14-2021 Ambulatory Clinical Summary {[id number]}CD: [id number] [facility] Patient Educationon 03-14-20 Patient Education Exercising [...] your health care provider or diet and nutritional services cook (dietitian). This may include: ? Eating fewer [...] and Human Services: www.[facility].gov ? Centers for Disease Control and Prevention [...] calories than (more content not included)... Normal [facility] Physician Referralon 021 Physician Referral [id number]#1.00CD:127 [facility] Patient Correspondenceon Patient Correspondence [id number]#1.00CD:127 [facility] Reminderson 01-10-2021 Reminders - From: Rosa [...] LR Letter mailed regular/certified letter today. Normal [facility] Provider Letteron 01-09-2021 Provider Letter (Inserted Image. Pina ble to display) January 09, 2021 ANDRY PIERRE [address] [place] [address] ANDRY PIERRE 1960 SENT VIA CERTIFIED AND REGULAR MAIL Dear Mr. Pierre, This letter is to inform you the providers of [facility], [facility] will no longer be responsible for your routine medical care due to your noncompliance. Emergency care only will be provided for the thirty (30) days following this letter. During this time period we suggest that you find another physician for your medical needs. A listing of area physicians can be found on [facility]'s website at [email or web address] or you may contact your health plan. We will be glad to forward your records to your new physician as long as we receive a signed release of records form. Sincerely, Larry Barfield M.D., F.A.C.S. [facility] [address] [place] [address] [facility] Patient Correspondenceon Patient Correspondence [id number]#1.00CD:127 Normal [facility] Provider Letter Office-[facility] 11-24-2020 Provider Letter Office-[facility] November 24, 2020 ANDRY PIERRE [address] [place] [address] ANDRY PIERRE 1960 SENT VIA CERTIFIED AND [...] Larry Barfield M.D., F.A.C.S. [facility] [place] [address], [address] [place] [id number] [facility] Reminderson 08-02-2020 Reminders - From: Radha King MA To: EU - Clinical; Sent: 07/19/2020 14:09:34 EDT Show up: 08/02/2020 14:09:00 EDT Subject: fish/cytol Reminder/Recall fish/cytol done 07/19/2020 done, sent msg to prw to review results Normal [facility] Outside Cardiovascularon Outside Cardiovascular [id number]#1.00CD:127 [facility] Outside Radiologyon 08-01-20 20 Outside Radiology [id number]#1.00CD:127 [facility] Outside Radiology [id number]#1.00CD:127 Normal [facility] Progress Note-Physicianon Progress Note-Physician [id number]#1.00CD:127 Normal [facility] Urology Office/Clinic Noteon 07-25-2020 Urology Office/Clinic Note Chief Complaint New Pt. HPI Staff New Pt. [place] [facility] on 07/10/2020 due to leaking around catheter. US of kidneys done 11/17/2019. CT SCAN done 07/04/2020. Pt. states after having a Ct scan Pt. was not able to urinate and had catheter placed. Pt. does not have a history of urine retention. 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 Pt. states by a Doctor in [place] told Pt. had prostates cancer. Pt. states no biopsy was done, just a blood test. PSA was 1.39 done 07/07/20. Cath was removed at [facility] this morning. Dysuria: denies pain or burning Incomplete bladder emptying: yes pt had cath for 2 weeks placed by [facility], cath was removed this morning at [facility] Hematuria: pt states he had visible [...] since last encounter. Reviewed CT scan and [facility] ER notes Review of Systems PHQ [...] Retention of urine, unspecified) Patient reported to [facility] ER for leaking around catheter on [...] contributing t (more content not included)... Normal [facility] Comment on above: Result Comment: Elec tronically Signed By: Yon GEORGE, Lefty Jamil\.br\Date and Time Signed: 07/25/20 12:11 EDT Urology Office/Clinic Note Chief Complaint [place] [facility] 07/10/2020 HPI Staff [place] [facility] on 07/10/2020 due to leaking around catheter. US of kidneys done 11/17/2019. Pt. states after having a Ct scan Pt. was not able to urinate and had catheter placed. Pt. does not have a history of urine retention. 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 Pt. states by a Doctor in [place] told Pt. had prostates cancer. Pt. states [...] abdominal pain. 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 ago by a in [place]. Pt. states that there was never a [...] urine fo (more content not included)... Normal [facility] Comment on above: Result Comment: Elec tronically Signed By: Yon GEORGE, Lefty Jamil\.br\Date and Time Signed: 07/25/20 11:44 EDT Lab Reportson 07-24-2020 Lab Reports [id number]#1.00CD:127 Normal [facility] UroVysion Fish and Urine Cyt o ([facility])on 07-24-2020 UVFISH & UC Diagnosis Info Invalid Interpretation Code [facility] Comment on above: Result Comment: A:Ur ine,Urine:Voided [...] on: 07/24/2020 10:42:51 Performed By: #### 1 [id number] ####[facility] [address] [place] [address] - [address] Reporton 07-21-[address] - [address] Report [id number]#1.00CD:127 Normal [facility] ED Note-Physicianon 07-20-20 ED Note-Physician [id number]#1.00CD:127 Normal [facility] Formson 07-20-2020 Forms [id number]#1.00CD:127 Normal [facility] Ambulatory Clinical Summaryo n 07-19-2020 Ambulatory Clinical Summary {[id number]}CD: [id number] [facility] Ambulatory Clinical Summary {[id number]}CD: [id number] [facility] Auth for Release of Medical Recordson 07-19-2020 Auth for Release of Medical Records [id number]#1.00CD:127 Normal [facility] Patient Educationon 07-19-20 20 Patient Education Family Medicine Obesity Obesity [...] Document Reviewed: 12/14/2012 ExitCare? Patient Information ?2013 [employer]. [facility] Patient Education Family Medicine Acute Urinary [...] your urine. Then you and your personal financial planner can decide at your earliest convenience how [...] to a urinary tract infection. Only take negj-sws-pwtjeal or prescription medicines for pain, discomfort, or fever as directed by your caregiver. SEEK IMMEDIATE MEDICAL CARE IF: You develop chills, fever, or show signs of generalized illness that occurs prior to seeing your caregiver. Document Released: 12/29/2001 Document Revised: 12/14/2012 Document Reviewed: 09/13/2009 ExitCare? Patient Information ?2014 [employer]. Normal [facility] Provider Letter [facility] [address] [place] [address] Re: ANDRY PIERRE Date of : 1960 [...] based on PSA alone per pt in [facility]. Equally confusing is the fact that this [...] a remote history of prostate cancer in [facility] by a outside urologist without a biopsy. [...] to determine his PSA's were done in [facility]. I began suspecting the patient was not [...] impression of (more content not included)... Normal [facility] RAD - CT Reporton 07-19-[address] - [address] Report [id number]#1.00CD:127 Normal [facility] UroVysion Fish and Urine Cyt o ([facility])on 07-19-2020 [facility] Method of Extraction Voided Normal [facility] Comment on above: Performed By: #### 1 [id number] ####[facility] [address] [place] [address] [facility] Number of Jars 1 Invalid Interpretation Code [facility] Comment on above: Performed By: #### 1 [id number] ####[facility] [id number] [place] [address] [facility] Specimen Urine Normal [facility] Comment on above: Performed By: #### 1 [id number] ####[facility] [address] [place] [address] [facility] Type of Service Technical Only Normal [facility] Comment on above: Performed By: #### 1 [id number] ####[facility] [address] [place] [address] Vital Signs Date Time Vital Sign Value Performing Clinician Facility 12-08-2023 19:17-0500 Respiratory rate 18 /min Abdirahman Hunt MD [facility] 12-08-2023 16:50-0500 Body temperature 97.9 [degF] Abdirahman Hunt MD [facility] 12-08-2023 16:50-0500 Diastolic blood pressure 88 mm[Hg] Abdirahman Hunt MD [facility] 12-08-2023 16:50-0500 Heart rate 90 /min Abdirahman Hunt MD [facility] 12-08-2023 16:50-0500 SaO2% (BldA) [Mass fraction] 98 % Abdirahman Hunt MD [facility] 12-08-2023 16:50-0500 Systolic blood pressure 149 mm[Hg] Abdirahman Hunt MD [facility] 12-05-2023 15:04-0500 Body height 180.3 cm Abdirahman Hunt MD [facility] 11-30-2023 00:18-0500 Body temperature 37.0 Abdirahman Hunt MD [facility] 11-29-2023 20:00-0500 Body mass index (BMI) [Ratio] 40.96 kg/m2 Abdirahman Hunt MD [facility] 11-29-2023 20:00-0500 Body weight 133.2 kg Abdirahman Hunt MD [facility] 11-06-2023 09:57-0500 Body height 175.3 cm Obed Florian MD Work Phone: [facility] 11-06-2023 09:57-0500 Body weight 123.38 kg Obed Florian MD Work Phone: [facility] 11-06-2023 09:57-0500 Diastolic blood pressure 89 mm[Hg] Obed Florian MD Work Phone: [facility] 11-06-2023 09:57-0500 Heart rate 81 /min Obed Florian MD Work Phone: [facility] 11-06-2023 09:57-0500 SaO2% (BldA) [Mass fraction] 95 % Obed Florian MD Work Phone: [facility] 11-06-2023 09:57-0500 Systolic blood pressure 127 mm[Hg] Obed Florian MD Work Phone: [facility] 01-21-2022 07:23-0400 Body height 182.9 cm Pacc 3 Work Phone: [facility] 01-21-2022 07:23-0400 Body temperature 97.2 [degF] Pacc 3 Work Phone: [facility] 01-21-2022 07:23-0400 Body weight 140.21 kg Pacc 3 Work Phone: [facility] 01-21-2022 07:23-0400 Diastolic blood pressure 84 mm[Hg] Pacc 3 Work Phone: [facility] 01-21-2022 07:23-0400 Heart rate 57 /min Pacc 3 Work Phone: [facility] 01-21-2022 07:23-0400 SaO2% (BldA) [Mass fraction] 99 % Pacc 3 Work Phone: [facility] 01-21-2022 07:23-0400 Systolic blood pressure 134 mm[Hg] Pacc 3 Work Phone: [facility] 11-13-2021 12:20-0500 Body height 182.88 cm Sanjay Dooley Other [facility] 11-13-2021 12:20-0500 Body mass index (BMI) [Ratio] 42.04 kg/m2 Sanjay Laroses Other [facility] 11-13-2021 12:20-0500 Body temperature 96.2 [degF] Sanjay Laroses Other [facility] 11-13-2021 12:20-0500 Body weight 140.62 kg Azlevi Laroses Other [facility] Other 11-13-2021 12:20-0500 Diastolic blood pressure 60 mm[Hg] Azlevi Laroses Other [facility] 11-13-2021 12:20-0500 Respiratory rate 20 /min Sanjay Laroses Other [facility] 11-13-2021 12:20-0500 SaO2% (BldA) [Mass fraction] 96 % Sanjay Laroses Other [facility] 11-13-2021 12:20-0500 Systolic blood pressure 92 mm[Hg] Sanjay Laroses Other [facility] Other Encounters Encounter Date Encounter Type Care Provider Facility Start: 03-09-2024 End: 03-09-2024 ambulatory YANCY CERVANTES Not Available Start: 03-04-2024 ambulatory TIFFANIE LEIGH [facility] Start: 02-25-2024 End: 02-25-2024 ambulatory ARJUN BARONE Not Available Start: 01-29-2024 End: 01-29[facility]20[facility]: 01-27-[facility]24 ambulatory DIOGENES [facility] Start: 01-22-2024 End: 01-22-2024 ambulatory YANCY CERVANTES Not Available Start: 01-21-2024 End: 01-21-2024 ambulatory YANCY CERVANTES Not Available Start: 01-13-2024 ambulatory SOFYA BERRY [facility] Start: 01-06-2024 End: 01-06-2024 ambulatory YANCY CERVANTES Not Available Start: 11-29-2023 End: 12-08-2023 Evaluation and management of inpatient CHARLEE ARCE [facility] Start: 11-29-2023 End: 12-08-2023 Evaluation and management of inpatient Abdirahman Hunt MD [facility] Start: 11-28-2023 End: 11-29-2023 Emergency department patient visit [facility] Start: 11-28-2023 End: 12-01-2023 ambulatory [facility] Start: 11-25-2023 End: 11-26-2023 ambulatory YUDITH [facility] Start: 11-19-2023 End: 11-19-2023 Subsequent hospital visit by physician [facility] [address] [facility] Non-Invasive Cardiology Comment on above: Canceled (Patient co ndition) Start: 11-06-2023 End: 11-07-2023 ambulatory SAY Livan Victor Manuel Facility:[facility] Start: 11-06-2023 End: 11-06-2023 [facility] Start: 11-06-2023 End: 11-06-2023 Patient encounter procedure Obed Florian MD Work Phone: Neurology Comment on above: Diabetic polyneuropa thy associated with type 2 diabetes mellitus (HCC) [E11.42] (Primary Dx); Weakness; Obesity, Class III, BMI 40-49.9 (morbid obesity) (HCC) Start: 10-21-2023 End: 10-22-2023 ambulatory [facility] Start: 10-10-2023 ambulatory [facility] Start: 10-08-2023 End: 10-14-2023 Emergency department patient visit SAY MCCORMICK [facility] Start: 09-19-2023 End: 09-20-2023 ambulatory SAY MCCORMICK Facility:[facility] Start: 09-12-2023 Telephone encounter Shane bowling PA-C Work Phone: [facility] Comment on above: DBS problem Start: 08-19-2023 End: 08-19-2023 ambulatory [facility] Start: 08-11-2023 End: 08-12-2023 ambulatory Ramon Mendiola MD Facility:[facility] Start: 07-17-2023 End: 07-17-2023 ambulatory DEEPA [facility] Start: 07-07-2023 Telephone encounter Wesley Rose MD Work Phone: [facility] Start: 05-21-2023 End: 05-21-2023 ambulatory [facility] Start: 02-20-2023 End: 02-21-2023 ambulatory SURI BANDA Facility:[facility] Start: 02-03-2023 End: 03-05-2023 ambulatory SHAIKH Brenda DEWEY Facility:[facility] Start: 01-07-2023 End: 01-08-[address] SAY MCCORMICK . Facility:[facility] Start: 01-06-2023 End: 01-31-2023 ambulatory CARMICHAEL H FASTAN Facility:[facility] Start: 12-04-2022 End: 01-03-2023 ambulatory CARMICHAEL H FAWWAD Facility:[facility] Start: 11-06-2022 End: 12-04-2022 ambulatory CARMICHAEL H FAWWAD Facility:[facility] Start: 10-07-2022 End: 11-06-2022 ambulatory CARMICHAEL H FAWVERONICA Facility:[facility] Start: 09-05-2022 End: 10-06-2022 ambulatory CARMICHAEL H FAWJHOAND Facility:[facility] Start: 08-06-2022 End: 09-04-[address] SAY MCCORMICK . Facility:[facility] Start: 07-10-2022 Encounter for preprocedural laboratory examination DIOGENES [facility]ENN[facility] Start: 07-08-2022 End: 07-09-2022 ambulatory DIOGENES RODRIGUEZ Facility:[facility] Start: 07-08-2022 End: 07-09-2022 Encounter for preprocedural laboratory examination DIOGENES RODRIGUEZ Facility:[facility] Start: 07-08-2022 End: 08-05-[address] SAY MCCORMICK . Facility:[facility] Start: 06-24-2022 End: 06-24-2022 ambulatory PRANAVMARYBEL VASQUEZ Facility:[facility] Start: 06-13-2022 End: 07-06-[address] SAY MCCORMICK . Facility:[facility] Start: 05-29-2022 End: 05-30-2022 ambulatory SOFYA HIDALGO Facility:[facility] Start: 05-23-2022 End: 05-24-2022 ambulatory SOFYA BERRY Facility:[facility] Start: 05-06-2022 End: 06-05-2022 ambulatory SHAIKH Brenda DEWEY Facility:[facility] Start: 04-05-2022 End: 05-03-2022 ambulatory SHAIKH Brenda DEWEY Facility:[facility] Start: 01-23-2022 Telephone encounter Wesley Rose MD Work Phone: [facility] Comment on above: Results Start: 01-21-2022 End: 01-21-2022 ambulatory P[facility] [address] 3 Work Phone: Pre Anesthesia Comment on above: Pre-op evaluation (P rimary Dx); Essential tremor; Type 2 diabetes mellitus with other specified complication, with long-term current use of insulin ([facility]); Obesity, Class III, BMI >= 40; Essential hypertension; Difficult intravenous access; Acute, but ill-defined, cerebrovascular disease; Obstructive sleep apnea syndrome; Chronic obstructive pulmonary disease, unspecified COPD type ([facility]); Tobacco use; Tracheal stenosis; Gastroesophageal reflux disease, unspecified whether esophagitis present; Pulmonary embolus with infarction ([facility]); Congestive heart failure, unspecified HF chronicity, unspecified heart failure type ([facility]); Stage 3 chronic kidney disease, unspecified whether stage 3a or 3b CKD ([facility]) 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 Start: 01-21-2022 End: 01-21-2022 Preprocedural examination done Pacc Main 3 Work Phone: Pre Anesthesia Start: 01-04-2022 Telephone encounter Harris chowdhury MD Work Phone: [facility] Comment on above: DBS MARIA G message Start: 11-26-2021 End: 11-26-2021 ambulatory Aziz Bakhous Other [facility] Other Start: 11-26-2021 Telephone encounter Aziz Bakhous [facility] Start: 11-13-2021 End: 11-13-2021 ambulatory Aziz Bakhous Other [facility] Other Start: 11-13-2021 Office outpatient ne w 45 minutes Aziz Bakhous [facility] [place] Start: 11-13-2021 Telephone encounter Aziz Bakhous [facility] Start: 07-21-2021 End: 07-27-2021 ambulatory [facility] Facility:[facility] Procedures Date Procedure Procedure Detail [...] End: 12-07-2023 Blood count platelet automated Jamia uNr MD Work Phone: Start: 12-06-2023 Glucose blood reagen t strip Lori Leblanc MD Work Phone: Start: 12-06-2023 Glucose blood reagen t strip Lori Leblanc MD Work Phone: Start: 12-06-2023 Glucose blood reagen t strip Lori Leblanc MD Work Phone: Start: 12-06-2023 End: 12-06-2023 Prothrombin time Jackie Rivas MD Work Phone: Start: 12-05-2023 Radiologic examinati on foot 2 views Rosalia Mobley APPRENTICE COSMETOLOGIST - FIRE PROTECTION EQUIPMENT TECHNICIAN Work Phone: Start: 12-05-2023 Glucose blood reagen [...] Phone: Start: 12-02-2023 EEG [place] i APPRENTICE COSMETOLOGIST - FIRE PROTECTION EQUIPMENT TECHNICIAN Work Phone: Start: 12-02-2023 Glucose blood reagen [...] 12-01-2023 Glucose blood reagen t strip Polly aRmos MD Work Phone: Start: 12-01-2023 Assay of [...] spine w/ o contrast material Crystal Romero APPRENTICE COSMETOLOGIST - FIRE PROTECTION EQUIPMENT TECHNICIAN Work Phone: Start: 11-30-2023 End: 11-30-2023 Assay of aldolase Radha Lao MD Work Phone: Start: 11-30-2023 T. PALLIDUM AB Radha Lao MD Work Phone: Start: 11-30-2023 BASIC METABOLIC PANE L W/ REFLEX TO MG FOR LOW K Sue Willams PA Work Phone: Start: 11-30-2023 C-reactive protein Danelle [...] above: Performed By: #### A 1C #### [facility] [address] [place] [address] Dr. Miah Buck Start: 07-26-2021 Resection of Gallbladder, Percutaneous Endoscopic Approach DAVON OLIVIER Start: 07-24-2021 DILATION OF COMMON HEPATIC DUCT, ENDO ALI T NAWRKAYLEE Start: 02-24-2015 Colonoscopy Mth 1 Start: 12-01-2014 H/O: surgery S/P deep brain stimulator placement Mth 1 H/O: surgery S/P deep brain stimulator placement Abdirahman Hunt MD Plan of Treatment Date Care Activity Detail Author Start: 02-21-2028 Prostate Cancer Screening Discussion Prostate Cancer Screening Discussion [facility] Start: 02-21-2028 Prostate specific antigen measurement Prostate Cancer Screening Discussion [facility] Start: 2025 Pneumococcal 0-64 years Vaccine (3 - PPSV23 or PCV20) Pneumococcal 0-64 years Vaccine (3 - PPSV23 or PCV20) [facility] Start: 2025 Pneumococcal vaccination [facility] Start: 02-24-2025 Screening for malignant neoplasm of colon [facility] Start: 12-02-2024 GFR test (Diabetes, CKD 3-4, OR last GFR 15-59) GFR test (Diabetes, CKD 3-4, OR last GFR 15-59) [facility] Start: 11-25-2024 Hemoglobin A1c measurement A1C test (Diabetic or Prediabetic) [facility] Start: 01-15-2024 End: 01-15-2024 Patient encounter procedure 01/15/2024 11:40 AM EDT Office Visit [facility] Neurology Specialist [address] [place] [address] Yudith Martinez PA [address], [address] [place] [address] and ophthalmology referral memory [facility]ist Comment on above: 6W labs CT and ophth almology referral memory Start: 12-16-2023 End: 12-16-2023 Patient encounter procedure 12/16/2023 2:00 PM EDT Procedure visit [facility] [address] [place] [id number] Evelyn Claire MD [address] [place] [phone] emg: ble (has heart monitor implanted- not pacemaker) [facility] Comment on above: emg: ble (has heart monitor implanted- not pacemaker) Start: 11-28-2023 End: 11-28-2023 Patient encounter procedure 11/28/2023 1:00 PM EST Appointment [facility] Non-Invasive Cardiology [address] [place] [id number] MEDIA - R/S W/ PT GWEN 11/19/23 BB [employer] Non-Invasive Cardiology Comment on above: MEDIA - R/S W/ PT WI FE GWEN 11/19/23 BB Start: 11-25-2023 End: 11-25-2023 Patient encounter procedure 11/25/2023 11:40 AM EST Office Visit [facility] Neurology Specialist [address] [place] [address] Yudith Martinez PA [address], [address] [place] [address] 4W swallow study double vision [facility] Neurology Specialist Comment on above: 4W swallow study cesario ble vision Start: 11-04-2023 End: 11-04-2024 Tilt table Tilt table CV Cardiac Diagnostics Routine Syncope and collapse Expected: 11/04/2023, Expires: 11/04/2024 [employer] [facility] Funding [facility] Work Phone: Comment on above: Expected: 11/04/2023 , Expires: 11/04/2024 Start: 10-27-2023 Complete blood count Hemoglobin/Juan tocrit [facility] Start: 10-27-2023 Creatinine measurement Serum Creatin ine [facility] Start: 10-27-2023 Serum Creatinine Serum Creatinine [facility] Start: 10-06-2023 Annual Wellness Visi t (Medicare Advantage) Annual Wellness Visit (Medicare Advantage) [facility] Start: 06-06-2023 Covid-19 Vaccine ( season) Covid-19 Vaccine ( season) [facility] Start: 06-06-2023 Influenza vaccination Influenza Vacc ine (#1) [facility] Start: 05-06-2023 Influenza vaccination Flu vaccine (# 1) [facility] Start: 01-21-2023 HEMOGLOBIN/HEMATOCRIT HEMOGLOBIN/HEM ATOCRIT [facility] Start: 01-21-2023 SERUM CREATININE SERUM CREATININE Cl [facility] Start: 11-28-2022 SERUM CREATININE SERUM CREATININE [facility] Start: 06-06-2022 Influenza vaccination INFLUENZ A (Season Ended) [facility] Start: 04-22-2022 Hemoglobin A1c measurement HbA1C [facility] Start: 04-22-2022 Hemoglobin A1c/Hemoglobin.total in Blood HBA1C [facility] Start: 01-20-2022 End: 03-22-2022 Hemoglobin A1c/Hemoglobin.total in Blood HGB A1C Lab Routine Type 2 diabetes mellitus with other specified complication, with long-term current use of insulin (HCC) Pre-op evaluation Expected: 01/20/2022, Expires: 03/22/2022 [facility] Work Phone: Comment on above: Expected: 01/20/2022 , Expires: 03/22/2022 Start: 02-03-2021 COVID-19 VACCINE (2 - Booster for Mary Ellen series) COVID-19 VACCINE (2 - Booster for Mary Ellen series) [facility] Start: 2020 Hepatitis B Vaccine (1 of 3 - Risk 3-dose series) Hepatitis B Vaccine (1 of 3 - Risk 3-dose series) [facility] Start: 2020 Respiratory Syncytia l Virus (RSV) or age 60 yrs+ (1 - 1-dose 60+ series) Respiratory Syncytial Virus (RSV) or age 60 yrs+ (1 - 1-dose 60+ series) [facility] [employer] Start: 2020 RSV Vaccine (1 - 1-dose 60+ series) RSV Vaccine (1 - 1-dose 60+ series) [facility] Start: 08-19-2020 Diabetic foot examination Diabetic foot exam [facility] [employer] Start: 12-12-2018 Hemoglobin A1c/Hemoglobin.total in Blood HBA1C [facility] Start: 08-29-2016 Urine screening for protein Diabetic Alb to Cr ratio (uACR) test [facility] [employer] Start: 08-09-2016 GFR test (Diabetes, CKD 3-4, OR last GFR 15-59) GFR test (Diabetes, CKD 3-4, OR last GFR 15-59) [facility] [employer] Start: 07-18-2016 Lipid panel Lipids [facility] Start: 05-05-2016 Hemoglobin A1c measurement A1C test (Diabetic or Prediabetic) [facility] Start: 2015 PROSTATE CANCER SCREENING DISCUSSION PROSTATE CANCER SCREENING DISCUSSION [facility] Start: 07-27-2015 Glaucoma screening Diabetic retinal exam [facility] Start: 2010 Shingles vaccine (1 of 2) Shingles vaccine (1 of 2) [facility] Start: 2010 SHINGRIX VACCINE (1 of 2) SHINGRIX VACCINE (1 of 2) [facility] Start: 2005 COLOGUARD (FIT-DNA) COLOGUARD (FIT-D NA) [facility] Start: 2005 Colonoscopy COLONOSCOPY [facility] Start: 2005 COLORECTAL CANCER SCREENING COLORECTAL CANCER SCREENING [facility] Start: [address] COL[facility]HY [facility] Start: 2005 FECAL OCCULT BLOOD FECAL OCCULT BLOO D [facility] Start: 2005 Screening for malignant neoplasm of colon [facility] Start: 2005 SIGMOIDOSCOPY SIGMOIDOSCOPY [facility] Start: 10-07-2000 Urine microalbumin profile DTaP,Tdap,Td Vaccine (1 - Tdap) [facility] Start: 1990 Zoledronic acid therapy Alpha-1 Antitrypsin Deficiency Screening [facility] Start: 1979 DTaP/Tdap/Td vaccine (1 - Tdap) DTaP/Tdap/Td vaccine (1 - Tdap) [facility] Start: 1979 Urine microalbumin profile [facility] Start: 1978 ANNUAL PCP TEAM CHRONIC DISEASE VISIT ANNUAL PCP TEAM CHRONIC DISEASE VISIT [facility] Start: 1978 BP CONTROLLED (<130/80) BP CONTROLLED (<130/80) [facility] Start: 1978 Hepatitis B surface antibody level LDL CHOLESTEROL [facility] Start: 1978 HEPATITIS C SCREENING HEPATITIS C [facility] Start: 1978 Hepatitis C screening Hepatitis C [facility] Start: 1978 HIV SCREENING HIV SCREENING [facility] Start: 1978 HIV screening HIV Screening [facility] Start: 1975 HIV screening HIV screen [facility] Start: 1972 Depression Monitoring Depression Mon itoring [facility] Start: 1970 3 comp foot exam completed DIABETIC FOOT EXAM [facility] Start: 1970 Diabetic foot examination Diabetic Foot Exam [facility] Start: 1970 Glaucoma screening Dilated Retinal E xam [facility] Start: 1970 Hepatitis B screening URINE ALBUMIN:CREATININE RATIO [facility] Start: 1970 Hepatitis C antibody , confirmatory test DILATED RETINAL EXAM [facility] Adult NIV/Positive Airway Pressure Adult NIV/Positive Airway Pressure Respiratory Care Routine Every 4hr until discontinued starting 11/30/2023 New Body MD Comment on above: Every 4hr until disc ontinued starting 11/30/2023 Continuous pulse oximetry Pulse oximetry, continuous Respiratory Care Routine Every 4hr until discontinued starting 12/03/2023 New Body MD Comment on above: Every 4hr until disc ontinued starting 12/03/2023 Glucose [Mass/volume ] in Serum or Plasma New Body MD Comment on above: 4X Daily (AC & HS) u ntil discontinued starting 11/30/2023 As Needed until disc ontinued starting 11/30/2023 Hemoglobin A1c/Hemoglobin.total in Blood HGB A1C Lab Routine Type 2 diabetes mellitus with other specified complication, with long-term current use of insulin (HCC) Pre-op evaluation 01/21/2022 9:30 AM EDT [facility] Work Phone: End: 12-23-2023 Hemoglobin and Hematocrit Hemoglobin and Hematocrit Lab Routine Every Other Day for 10 Occurrences starting 12/05/2023 until 12/23/2023, 2 completed New Body MD Comment on above: Every Other Day for 10 Occurrences starting 12/05/2023 until 12/23/2023, 2 completed Oxygen therapy [Minimum Data Set] Initiate Oxygen Therapy Protocol Respiratory Care Routine As Needed until discontinued starting 11/29/2023 New Body MD Comment on above: As Needed until disc ontinued starting 11/29/2023 End: 12-23-2023 Platelets [#/volume] in Blood Platelet Count Lab Routine Every Other Day for 10 Occurrences starting 12/05/2023 until 12/23/2023, 2 completed New Body MD Comment on above: Every Other Day for 10 Occurrences starting 12/05/2023 until 12/23/2023, 2 completed End: 12-14-2023 Protime-INR Protime-INR Lab Routine Daily for 7 Days starting 12/08/2023 until 12/14/2023, 1 completed New Body MD Comment on above: Daily for 7 Days sta rting 12/08/2023 until 12/14/2023, 1 completed End: 11-30-2023 LANDSCAPE ENGINEER clinical swallow evaluation LANDSCAPE ENGINEER clinical swallow evaluation LANDSCAPE ENGINEER Routine One Time for 1 Occurrences starting 11/30/2023 until 11/30/2023 New Body MD Work Phone: Comment on above: One Time for 1 Occur rences starting 11/30/2023 until 11/30/2023 End: 11-30-2023 SPECIMEN REJECTION New Body MD Comment on above: Once for 1 Occurrenc es starting 11/30/2023 until 11/30/2023 End: 11-30-2023 Speech and language therapy regime LANDSCAPE ENGINEER eval and treat LANDSCAPE ENGINEER Routine One Time for 1 Occurrences starting 11/30/2023 until 11/30/2023 New Body MD Comment on above: One Time for 1 Occur rences starting 11/30/2023 until 11/30/2023 STAPH AUREUS PCR STAPH AUREUS PC R Lab Routine 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) Ordered: 01/21/2022 [facility] Work Phone: Comment on above: [facility]: [facility] Immunization Date Immunization Notes Care Provider [facility] 07-19-2021 influenza virus vacc ine, unspecified formulation Wesley Rose MD Work Phone: [facility] 07-07-2020 Influenza, injectabl e, Madin [place] Canine Kidney, preservative free, quadrivalent Harris Faustin MD Work Phone: [facility] 08-01-2019 influenza virus vacc ine, unspecified formulation Harris Faustin MD Work Phone: [facility] 08-10-2018 influenza, injectabl e, quadrivalent, preservative free Harris aFustin MD Work Phone: [facility] 07-24-2018 Influenza, injectabl e, Madin [place] Canine Kidney, preservative free, quadrivalent Harris Faustin MD Work Phone: [facility] 09-10-2017 influenza virus vacc ine, unspecified formulation Harris Faustin MD Work Phone: [facility] 08-11-2017 pneumococcal polysaccharide vaccine, 23 valent Harris Faustin MD Work Phone: [facility] 08-05-2016 influenza virus vacc ine, unspecified formulation Harris Faustin MD Work Phone: [facility] 11-13-2015 pneumococcal conjuga te vaccine, 13 valent Harris Faustin MD Work Phone: [facility] 07-18-2015 influenza virus vacc ine, unspecified formulation [facility] 07-18-2015 influenza virus vacc ine, whole virus Harris Faustin MD Work Phone: [facility] 07-06-2015 influenza, high dose seasonal, preservative-free Harris Faustin MD Work Phone: [facility] 09-13-2014 influenza, injectabl e, quadrivalent, preservative free Harris Faustin MD Work Phone: [facility] 06-25-2013 influenza, seasonal, injectable, preservative free Harris Faustin MD Work Phone: [facility] 06-17-2012 influenza, seasonal, injectable Harris Faustin MD Work Phone: [facility] 09-11-2010 pneumococcal polysaccharide vaccine, 23 valent Harris Faustin MD Work Phone: [facility] Payers Date Payer Category Payer Medicare [id number] 2022 Medicaid 2021 Medicare [id number] 2021 Medicare [id number] 2021 Unknown [id number] 2019 Unknown ANTHSUNDAY [facility]UE [facility] S AND BLUE SHIELD ANTHSUNDAY [facility] [id number] 2019-Present [phone] [facility] [id number] [place] [address] [facility] [id number] .[id number] 2018 Unknown [id number] 1960 Unknown [id number] 2.16.840.1.461520.3.579.2.6 47 1960 Unknown [id number] 2.16.840.1.827670.3.579.2.5 93 1960 Unknown [id number] 2.16.840.1.505605.3.579.2.5 93 1960 Unknown [id number] 2.16.840.1.281497.3.579.2.5 93 1960 Unknown [id number] 2.16.840.1.334877.3.579.2.5 93 1960 Unknown [id number] 2.16.840.1.233405.3.579.2.5 93 1960 Unknown [id number] 2.16.840.1.798848.3.579.2.5 93 1960 Unknown [id number] 2.16.840.1.439515.3.579.2.5 93 1960 Unknown [id number] 2.16.840.1.885177.3.579.2.5 93 1960 Unknown [id number] 2.16.840.1.421271.3.579.2.5 93 1960 Unknown [id number] 2.16.840.1.983398.3.579.2.5 93 1960 Unknown [id number] 2.16.840.1.996391.3.579.2.5 93 1960 Unknown [id number] 2.16.840.1.962713.3.579.2.5 93 1960 Unknown [id number] 2.16.840.1.985840.3.579.2.5 93 1960 Unknown [id number] 2.16.840.1.359785.3.579.2.5 93 1960 Unknown [id number] 2.16.840.1.510114.3.579.2.5 93 1960 Unknown [id number] 2.16.840.1.171413.3.579.2.5 93 1960 Unknown [id number] 2.16.840.1.562167.3.579.2.5 93 1960 Unknown [id number] 2.16.840.1.973014.3.579.2.5 93 1960 Unknown [id number] 2.16.840.1.424356.3.579.2.5 93 1960 Unknown [id number] 2.16.840.1.162088.3.579.2.1 96 1960 Unknown [id number] 2.16.840.1.150267.3.579.2.1 286 1960 Unknown [id number] 2.16.840.1.295427.3.579.2.1 286 1960 Unknown [id number] 2.16.840.1.170358.3.579.2.1 286 1960 Unknown [id number] 2.16.840.1.487581.3.579.2.1 286 1960 Unknown [id number] 2.16.840.1.425774.3.579.2.1 286 1960 Unknown [id number] 2.16.840.1.067007.3.579.2.1 286 1960 Unknown [id number] 2.16.840.1.170275.3.579.2.1 77 1960 Unknown [id number] 2.16.840.1.790025.3.579.2.1 73 1960 Unknown [id number] 2.16.840.1.712292.3.579.2.1 73 1960 Unknown [id number] 2.16.840.1.038097.3.579.2.1 75 1960 Unknown [id number] 2.16.840.1.681329.3.579.2.1 259 1960 Unknown [id number] 2.16.840.1.699544.3.579.2.1 259 1960 Unknown [id number] 2.16.840.1.367465.3.579.2.1 259 1960 Unknown [id number] 2.16.840.1.930946.3.579.2.1 259 1960 Unknown [id number] 2.16.840.1.122043.3.579.2.1 259 1959 Private Health Insurance [id number] Unknown [id number] 2.16.840.1.424018.19 Social History Date Type Detail Facility Start: 05-31-2013 End: 10-27-2023 Tobacco smoking status NHIS Never smoked tobacco [facility] Work Phone: Start: 05-31-2013 End: 10-27-2023 Tobacco use and exposure Former smokeless tobacco user [facility] Work Phone: End: 09-17-2015 History of tobacco use Chews Tobacco [facility] Work Phone: Start: 06-15-2021 End: 11-06-2023 Alcohol intake Current non-drinker of alcohol (finding) [facility] Start: 01-04-2020 History SDOH Alcohol Frequency 1 [facility] Start: 01-04-2020 Tobacco Comment 30 years [facility] Start: 1960 Sex Assigned At Male C [facility] Start: 05-31-2013 End: 09-19-2023 Tobacco use and exposure User of smokeless tobacco [facility] Work Phone: Start: 01-11-2022 End: 01-21-2022 Exposure to SARS-CoV-2 (event) Not sure [facility] Start: 01-04-2020 End: 11-29-2023 Sex Assigned At [facility] History of tobacco use Cigarette Smoker C [facility] Work Phone: Start: 01-04-2020 End: 11-29-2023 History of Social function [facility] How often to you hav e a drink containing alcohol? Never [facility] Average Number of Drinks Not on file [facility] Start: 08-16-2019 Gender identity Identifies as male gender (finding) [facility] Start: 08-16-2019 Sexual orientation Heterosexual (fin oneal) [facility] Start: 10-28-2023 End: 12-03-2023 Alcohol intake Lifetime non-drinker (finding) New Body MD Has the electric, [employer], oil, or water [employer] threatened to shut off services in your home in past 12Mo No New Body MD (I/We) worried whemally er (my/our) food would run out before (I/we) got money to buy more. Never true New Body MD NEGATED: Highlighted rowStart: NINF History of tobacco use Passive smoker New Body MD Medical Equipment Procedure Code Equipment Code Equipment Origin al Text Equipment Identifier Dates Ipg Activa Sc Db s Dual Extn - [id number] Start: 06-30-2013 Comment on above: Description: ACTIVA SC Multi-program Leonor rostimulator for deep Brain Stimulation Neurostimulator Activa Sc 0-10.5v 2-250hz 0-25.5ma 2.4inx2.2in .4in - [id number] Start: 07-24-2016 Neurostimulator Activa Sc 0-10.5v 2-250hz 0-25.5ma 2.4inx2.2in .4in - [id number] Start: 06-30-2019 Neurostimulator Activa Sc 0-10.5v 2-250hz 0-25.5ma 2.4inx2.2in .4in - [id number] Start: 01-30-2022 [id number], [id number] Start: 06-29-2014 Comment on above: Use as directed sq bid Clinical Notes 03-22-2021 to 01-29-2024 Janneth Nelson RN - 12/08/2023 6:28 PM Jnaneth Dennison RN - 12/08/2023 6:01 PM Lori Fernandes MD - 12/08/2023 3:35 PM Pete Lamb, HAT DESIGNER - 12/08/2023 2:02 PM ESTNata Instr - CHERIE Note Date & Type Note Facility 01-29-2024 Note [place] [facility] - [facility] Reason for Consultation: Syncope, s/p loop implant 01/09/23 PMHx: CAD (2019 cath showed non-obstructive CAD with endothelial dysfunction to RCA), chronic diastolic heart failure, HTN, DM type II, prothrombin gene mutation and hx of DVT/PE on coumadin, CVA x4, PAM, parkinson's vs myesthenia gravis s/p deep brain stimulator 01/29/24 His weight was in the 320s#, he is now down to 307#. He leg swelling is improved, he does still have some residual swelling. He is working with neurology for his new dx of CIDP. 01/13/24 He c/o being in and out [...] unresponsive during this. He was sent to [facility] for neuro eval. He continues to have [...] 10/21/23 Telephone apt today for follow up [facility] for chest pain. He was seen [...] reveals no events. Had recent ECHO at [place] which was normal. LOOP: 08/19/23: Here for [...] on file Intimate Partner Violence: Unknown (11/27/2023) [place] Safety & Environment Fear of Current or Ex-Partner: Not on file Emotionally Abused: Not on file Physically Abu (more content not included)... [facility] 01-29-2024 Note Patient here for 2 w andreafski follow up diastolic heart failure, hx of DVT/PE, chest pain, and hypertension. He states neurology diagnosed him with CIDP. Says Dr. Mccormick gave him 4 days of spironolactone 50mg and this has helped his swelling. He also said Dr. Mccormick started him on metoprolol for hypertension. He is not taking amlodipine and doesn't know why. Doesn't know if he ever was. Denies SOB. Says his chest pain isn't like it was before . Denies bleeding on warfarin. Review of Systems Constitutional: Positive for malaise/fatigue. Cardiovascular: Positive for chest pain (improving), leg swelling and palpitations ( sometimes ). Musculoskeletal: Positive for arthritis, back pain, falls, joint pain, muscle weakness and myalgias. Gastrointestinal: Positive for nausea. Neurological: Positive for excessive daytime sleepiness, dizziness, light-headedness and weakness. All other systems reviewed and are negative. [facility] 01-13-2024 Note [place] [facility] - [facility] Reason for Consultation: Syncope, s/p loop implant [...] unresponsive during this. He was sent to [facility] for neuro eval. He continues to have [...] 10/21/23 Telephone apt today for follow up [facility] for chest pain. He was seen [...] reveals no events. Had recent ECHO at [place] which was normal. LOOP: 08/19/23: Here for [...] on file Intimate Partner Violence: Unknown (11/27/2023) [place] Safety & Environment Fear of Current or Ex-Partner: Not on file Emotionally Abused: Not on file Physically Abused: Not on file Sexually Abused: Not on file Physically or Sexually Abused: Not on file Depression: Not on file Housing Stability: Not on file Utilities: Not on file Meds: Current (more content not included)... [facility] 12-08-2023 History of Present illness Narrative Called report to Bee Brennan at [phone]. Answered all questions and advised that the patient will be leaving here around 8:00 PM tonight. Attempted to call report to Mika at [phone]. Was on hold for over 10 minutes. Images from the original note were not included. [facility] Office: [phone] Alberto Rice DO, Luciano Murphy DO, Humza [...] Criss Gray CNP, Lefty Matute CNP, Brittny Quinones, COLTON, Kacey Meeks, FIRE PROTECTION EQUIPMENT TECHNICIAN, Sugey Barillas, FIRE PROTECTION EQUIPMENT TECHNICIAN, Mary Jo Bonner CNP, Kathy Granados CNP, Sigrid Velásquez CNP, Janine Turpin PARolfC, KATHRIN MercedesC, Savi Iqbal CNP, Beckie Mello, FIRE PROTECTION EQUIPMENT TECHNICIAN, Nora Mace, FIRE PROTECTION EQUIPMENT TECHNICIAN, Jyoti Rojo, DRILL OPERATOR AUTOMATIC, Ronda Sellers, SHERYL, Janell Hoyt CNP, Caryl Gonzalez, FIRE PROTECTION EQUIPMENT TECHNICIAN [facility] IN-PATIENT SERVICE [facility] Progress Note 12/08/2023 3:35 PM Name: Andry Pierre Acct: [id number] Room: [id number] Day: 9 Admit Date: 11/29/2023 8:06 PM PCP: Say Mccormick MD Code Status: Full Code Subjective: C/C: chest pain and dizziness Interval History Status: not changed. NAEO Doing well this morning without complaints Bp stable today. Peer to peer denied ARU 12/04/23 Pending Placement to SNF Brief History: Per documentation Andry Pierre is a 63 y.o. male with history of prior CVAs (with h/o expressive aphasia, dysphasia), h/o seizures, DM 2, HFpEF, CKD 3, chronic thrombophila w/ +prothrombin gene mutation s/p DVT/PE 01/2023, nonobst CAD (s/p cath 2019), asthma/COPD with PAM with history of Parkinsons vs MG s/p deep brain stimulator 10/2008 who initially presented to [facility] 11/24 s/p fall in bathroom with acute left hip/upper thigh and back pain (hit head, no LOC) presents with No chief complaint on file. and is admitted to the hospital for the management of AMS (altered mental status). Patient transferred from [place] after undergoing tilt table evaluation for concern for orthostasis on 11/28/2022 with history of recurrent episodes of dizziness with history of stroke, complicated history. tilt table test complicated by worsening acute symptoms of dizziness with chest pain with altered sensorium. Although tilt test unremarkable for orthostasis, patient was evaluated in ED with acute symptoms and recommended admission pending transfer to [facility] for neurology evaluation. Unfortunately with bed [...] with occasional shortness of breath While in [place] ED patient did develop symptomatic hypoglycemia with blood sugars in the 50s with symptoms of feeling funny . 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 Subsequently returned status post fall 11/24 with [...] of Arthritis, Asthma, CHF (congestive heart failure) ([facility]), CKD (chronic kidney disease) stage 2, GFR 60-89 ml/min, Clotting disorder ([facility]), Congenital heart disease, COPD (chronic obstructive pulmonary disease) ([facility]), Depression, Emphysema of lung ([facility]), GERD (gastroesophageal reflux disease), GERD [...] 03:20 PM PO2ART 92.5 08/22/2011 03:20 PM QXI4AAV 26.0 08/22/2011 03:20 PM NBEA NOT REPORTED 08/22/2011 03:20 PM PBEA 1.8 08/22/2011 03:20 PM [id number] 95.6 08/22/2011 03:20 PM FIO2 INFORMATION NOT PROVIDED 11/30/2023 12:05 AM Lab Results Component Value Date/Time SPECIAL NOT REPORTED 10/20/2012 10:15 AM SPECIAL NOT REPORTED 10/20/2012 10:15 AM Lab Results Component Value Date/Time CULTURE NO GROWTH 10/20/2012 10:15 AM CULTURE 10/20/2012 10:15 AM Performed at [address] [address] Radiology: XR CHEST (2 VW) Result Date: [...] 2 units and then adjust accordingly Recurrent YYUq-TOVk-uuluhx neurology plan History of prothrombin gene mutation with prior DVT-continue Coumadin CKD stage III-continue to monitor creatinine and will need follow-up with nephrology/PCP PAM on CPAP Hx of dvt: on coumadin. Pharmacy managing Discharge planning after the above workup Lori Leblanc MD 12/08/2023 3:35 PM Physical Therapy Facility/Department: [address] [place] Physical Therapy Treatment Note Name: Andry Pierre : 1960 Date of Service: 12/08/2023 Discharge Recommendations: Patient would benefit from continued therapy after discharge PT Equipment Recommendations Equipment Needed: No Other: Pt owns walker, cane and walker Patient Diagnosis(es): There were no encounter diagnoses. Past Medical History: has a past medical history of Arthritis, Asthma, CHF (congestive heart failure) ([facility]), CKD (chronic kidney disease) stage 2, GFR 60-89 ml/min, Clotting disorder ([facility]), Congenital heart disease, COPD (chronic obstructive pulmonary disease) ([facility]), Depression, Emphysema of lung ([facility]), GERD (gastroesophageal reflux disease), GERD (gastroesophageal reflux disease), Gout, Headache(784.0), Hernia, Hernia, History of blood clots, History of DVT (deep vein thrombosis), Hyperlipidemia, Insomnia, Irritable bowel syndrome, Kidney stones, Lumbar degenerative disc disease, Lumbar radiculopathy, Obesity, PAM (obstructive sleep apnea), Parkinson disease, Parkinson's disease, Post traumatic stress disorder, Renal disease, Rheumatoid arthritis ([facility]), Stroke ([facility]), Stroke risk, Tracheostomy in place ([facility]), Tremors of nervous system, Type [...] (06/03/2003); hernia repair (Right); Upper gastrointestinal endoscopy (15); Uvulopalatopharygoplasty; Colonoscopy (); and Cholecystectomy. Assessment Body [...] abduction/adduction, heel/toe raises, and marches Reps 20 AM-[facility] - Mobility AM-[facility] Basic Mobility - Inpatient How much help [...] 3-5 steps with a railing?: [facility] Raw Score : 15 AM-[facility] Inpatient T-Scale Score : 39.45 Mobility Inpatient [...] other days (per medication management clinic in [place], last visit 11/11; clinic noted recent dose [...] other days (per medication management clinic in [place], last visit 11/11; clinic noted recent dose [...] from the original note were not included. [facility] Office: [phone] Alberto Rice DO, Luciano Murphy DO, Humza [...] Criss Gray CNP, Lefty Matute CNP, Brittny Quinones, COLTON, Kacey Meeks, FIRE PROTECTION EQUIPMENT TECHNICIAN, Sugey Barillas FIRE PROTECTION EQUIPMENT TECHNICIAN, Mary Jo Bonner CNP, Kathy Granados CNP, Sigrid Velásquez FIRE PROTECTION EQUIPMENT TECHNICIAN, Janine Turpin PARolfC, KATHRIN MercedesC, Savi Iqbal FIRE PROTECTION EQUIPMENT TECHNICIAN, Beckie Mello, FIRE PROTECTION EQUIPMENT TECHNICIAN, Nora Mace, FIRE PROTECTION EQUIPMENT TECHNICIAN, Jyoti Rojo, DRILL OPERATOR AUTOMATIC, Ronda Sellers, FIRE PROTECTION EQUIPMENT TECHNICIAN, Janell Hoyt, FIRE PROTECTION EQUIPMENT TECHNICIAN, Caryl Gonzalez, FIRE PROTECTION EQUIPMENT TECHNICIAN [facility] IN-PATIENT SERVICE [facility] Progress Note 12/07/2023 9:05 AM Name: Andry Pierre Acct: [id number] Room: [id number] Day: 8 Admit Date: 11/29/2023 8:06 PM PCP: Say Mccormick MD Code Status: Full Code Subjective: C/C: chest pain and dizziness Interval History Status: not changed. SHWETHAO Doing well this morning without complaints Bp stable today. Peer to peer denied ARU 12/04/23 Pending Placement to SNF Brief History: Per documentation Andry Pierre is a 63 y.o. male with history of prior CVAs (with h/o expressive aphasia, dysphasia), h/o seizures, DM 2, HFpEF, CKD 3, chronic thrombophila w/ +prothrombin gene mutation s/p DVT/PE 01/2023, nonobst CAD (s/p cath 2019), asthma/COPD with PAM with history of Parkinsons vs MG s/p deep brain stimulator 10/2008 who initially presented to [facility] 11/24 s/p fall in bathroom with acute left hip/upper thigh and back pain (hit head, no LOC) presents with No chief complaint on file. and is admitted to the hospital for the management of AMS (altered mental status). Patient transferred from [place] after undergoing tilt table evaluation for concern for orthostasis on 11/28/2022 with history of recurrent episodes of dizziness with history of stroke, complicated history. tilt table test complicated by worsening acute symptoms of dizziness with chest pain with altered sensorium. Although tilt test unremarkable for orthostasis, patient was evaluated in ED with acute symptoms and recommended admission pending transfer to [facility] for neurology evaluation. Unfortunately with bed [...] with occasional shortness of breath While in [place] ED patient did develop symptomatic hypoglycemia with blood sugars in the 50s with symptoms of feeling funny . 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 Subsequently returned status post fall 11/24 with [...] of Arthritis, Asthma, CHF (congestive heart failure) ([facility]), CKD (chronic kidney disease) stage 2, GFR 60-89 ml/min, Clotting disorder ([facility]), Congenital heart disease, COPD (chronic obstructive pulmonary disease) ([facility]), Depression, Emphysema of lung ([facility]), GERD (gastroesophageal reflux disease), GERD [...] 03:20 PM PO2ART 92.5 08/22/2011 03:20 PM RVA6UEW 26.0 08/22/2011 03:20 PM NBEA NOT REPORTED 08/22/2011 03:20 PM PBEA 1.8 08/22/2011 03:20 PM [id number] 95.6 08/22/2011 03:20 PM FIO2 INFORMATION NOT PROVIDED 11/30/2023 12:05 AM Lab Results Component Value Date/Time SPECIAL NOT REPORTED 10/20/2012 10:15 AM SPECIAL NOT REPORTED 10/20/2012 10:15 AM Lab Results Component Value Date/Time CULTURE NO GROWTH 10/20/2012 10:15 AM CULTURE 10/20/2012 10:15 AM Performed at [address] [address] Radiology: XR CHEST (2 VW) Result Date: [...] 2 units and then adjust accordingly Recurrent LXAz-NEFb-ztvzrf neurology plan History of prothrombin gene mutation with prior DVT-continue Coumadin CKD stage III-continue to monitor creatinine and will need follow-up with nephrology/PCP PAM on CPAP Hx of dvt: on coumadin. Pharmacy managing Discharge planning after the above workup Lori Leblanc MD 12/07/2023 9:05 AM Images from the original note were not included. [facility] Office: [phone] Alberto Rice DO, Luciano Murphy DO, Humza [...] MD, Daniel Swenson MD, Marvin Sneed MD, Abdriahman Hunt MD, Da Moore MD, Geneva Casiano MD, Matthew Perez DO, Tk Connor DO, Jess Parker MD, Garett Valentine MD, Rosalia Mobley, SHERYL, Criss Gray CNP, Lefty Matute CNP, Brittny Quinones, COLTON, Kacey Meeks, FIRE PROTECTION EQUIPMENT TECHNICIAN, Sugey Barillas, FIRE PROTECTION EQUIPMENT TECHNICIAN, Mary Jo Bonner FIRE PROTECTION EQUIPMENT TECHNICIAN, Kathy Granados FIRE PROTECTION EQUIPMENT TECHNICIAN, Sigrid Velásquez FIRE PROTECTION EQUIPMENT TECHNICIAN, Janine Turpin, PARolfC, GREG Mercedes-C, Savi Iqbal, FIRE PROTECTION EQUIPMENT TECHNICIAN, Beckie Mello, FIRE PROTECTION EQUIPMENT TECHNICIAN, Nora Mace, FIRE PROTECTION EQUIPMENT TECHNICIAN, Jyoti Rojo, DRILL OPERATOR AUTOMATIC, Ronda Sellers, FIRE PROTECTION EQUIPMENT TECHNICIAN, Janell Hoyt, FIRE PROTECTION EQUIPMENT TECHNICIAN, Caryl Gonzalez, FIRE PROTECTION EQUIPMENT TECHNICIAN [facility] IN-PATIENT SERVICE [facility] Progress Note 12/06/2023 1:56 PM Name: Andry Pierre Acct: [id number] Room: [id number]/[id number] IP Day: 7 Admit Date: 11/29/2023 8:06 PM PCP: Say Mccormick MD Code Status: Full Code Subjective: C/C: chest pain and dizziness Interval History Status: not changed. NAEO Doing well this morning without complaints Bp stable today. Peer to peer denied ARU 12/04/23 Pending Placement to SNF Brief History: Per documentation Andry Pierre is a 63 y.o. male with history of prior CVAs (with h/o expressive aphasia, dysphasia), h/o seizures, DM 2, HFpEF, CKD 3, chronic thrombophila w/ +prothrombin gene mutation s/p DVT/PE 01/2023, nonobst CAD (s/p cath 2019), asthma/COPD with PAM with history of Parkinsons vs MG s/p deep brain stimulator 10/2008 who initially presented to [facility] 11/24 s/p fall in bathroom with acute left hip/upper thigh and back pain (hit head, no LOC) presents with No chief complaint on file. and is admitted to the hospital for the management of AMS (altered mental status). Patient transferred from [place] after undergoing tilt table evaluation for concern for orthostasis on 11/28/2022 with history of recurrent episodes of dizziness with history of stroke, complicated history. tilt table test complicated by worsening acute symptoms of dizziness with chest pain with altered sensorium. Although tilt test unremarkable for orthostasis, patient was evaluated in ED with acute symptoms and recommended admission pending transfer to [facility] for neurology evaluation. Unfortunately with bed [...] with occasional shortness of breath While in [place] ED patient did develop symptomatic hypoglycemia with blood sugars in the 50s with symptoms of feeling funny . 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 Subsequently returned status post fall 11/24 with [...] glucose, dextrose bolus OR dextrose bolus, glucagon ([facility]), dextrose, morphine, sodium chloride flush, sodium chloride, potassium chloride OR potassium alternative oral replacement OR potassium chloride, magnesium sulfate, ondansetron OR ondansetron, polyethylene glycol, acetaminophen OR acetaminophen Data: Past Medical History: has a past medical history of Arthritis, Asthma, CHF (congestive heart failure) ([facility]), CKD (chronic kidney disease) stage 2, GFR 60-89 ml/min, Clotting disorder ([facility]), Congenital heart disease, COPD (chronic obstructive pulmonary disease) ([facility]), Depression, Emphysema of lung (HCC), GERD (gastroesophageal reflux disease), GERD (gastroesophageal reflux disease), Gout, Headache(784.0), Hernia, Hernia, History of blood clots, History of DVT (deep vein thrombosis), Hyperlipidemia, Insomnia, Irritable bowel syndrome, Kidney stones, Lumbar degenerative disc disease, Lumbar radiculopathy, Obesity, PAM (obstructive sleep apnea), Parkinson disease, Parkinson's disease, Post traumatic stress disorder, Renal disease, Rheumatoid arthritis (HCC), Stroke (HCC), Stroke risk, Tracheostomy in place ([facility]), Tremors of nervous system, Type [...] F (36.9 C) Recent Labs 12/05/23 1716 12/05/23 2025 12/06/23 0742 12/06/23 1259 POCGLU 137* 160* 119* [...] 03:20 PM PO2ART 92.5 08/22/2011 03:20 PM GCU4DJY 26.0 08/22/2011 03:20 PM NBEA NOT REPORTED 08/22/2011 03:20 PM PBEA 1.8 08/22/2011 03:20 PM [id number] 95.6 08/22/2011 03:20 PM FIO2 INFORMATION NOT PROVIDED 11/30/2023 12:05 AM Lab Results Component Value Date/Time SPECIAL NOT REPORTED 10/20/2012 10:15 AM SPECIAL NOT REPORTED 10/20/2012 10:15 AM Lab Results Component Value Date/Time CULTURE NO GROWTH 10/20/2012 10:15 AM CULTURE 10/20/2012 10:15 AM Performed at [address] [address] Radiology: XR CHEST (2 VW) Result Date: [...] weakness 12/02/2023 Yes CHF (congestive heart failure) ([facility]) 11/30/2023 Yes Uncontrolled hypertension 11/30/2023 [...] 2 units and then adjust accordingly Recurrent CNYs-RLAh-njcwph neurology plan History of prothrombin gene mutation with prior DVT-continue Coumadin CKD stage III-continue to monitor creatinine and will need follow-up with nephrology/PCP PAM on CPAP Discharge planning after the above workup Lori Leblanc MD 12/06/2023 1:56 PM Pharmacy Note Warfarin Consult follow-up Warfarin dose prior to admission: 17.5 mg Sun, 15 mg all other days (per medication management clinic in [place], last visit 11/11; clinic noted recent dose [...] other days (per medication management clinic in [place], last visit 11/11; clinic noted recent dose [...] inpatient. Nolan Mccarty PharmD, 12/05/2023 2:41 PM LANDSCAPE ENGINEER ALL NOTES Speech Language Pathology [facility] Cognitive Treatment Note Date: 12/05/2023 Patient s Name: Andry Pierre Diagnosis: Patient Active Problem List Diagnosis Code COPD (chronic obstructive pulmonary disease) ([facility]) J44.9 PAM (obstructive sleep apnea) G47.33 Obesity, morbid ([facility]) E66.01 Lumbar degenerative disc disease M51.36 Lumbar radiculopathy M54.16 Lumbar facet arthropathy M47.816 Osteoarthritis of both knees M17.0 Diabetic neuropathy ([facility]) E11.40 Morbid obesity ([facility]) E66.01 Sleep apnea, obstructive G47.33 Encounter for medication monitoring Z51.81 Chronic kidney disease (CKD), stage III (moderate) ([facility]) N18.30 Hyperkalemia E87.5 Generalized weakness R53.1 Pill rolling tremor R25.1 Muscle cramps R25.2 Acute renal failure (ARF) ([facility]) N17.9 Type II or unspecified type diabetes mellitus without mention of complication, not stated as uncontrolled E11.9 Depression F32.A Irritable bowel syndrome K58.9 Obesity E66.9 CHF (congestive heart failure) ([facility]) I50.9 Parkinson disease G20.A1 Tremors of nervous system R25.[address] ([facility]) Z93.0 Bilateral lower extremity edema R60.0 CKD (chronic kidney disease) N18.9 Uncontrolled hypertension I10 Dysphagia R13.10 Hyperlipidemia E78.5 History of DVT (deep vein thrombosis) Z86.718 Congenital heart disease Q24.9 Emphysema of lung ([facility]) J43.9 Hernia K46.9 Stroke risk Z91.89 GERD (gastroesophageal reflux disease) K21.9 Asthma J45.909 Renal disease N28.9 Gout M10.9 S/P deep brain stimulator placement Z96.89 Parkinsons G20.A1 CKD (chronic kidney disease) stage 2, GFR 60-89 ml/min N18.2 Type II or unspecified type diabetes mellitus with renal manifestations, not stated as uncontrolled(250.40) E11.29 Encounter for chronic pain management G89.29 Weight loss, intentional [id number] 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 Stated mental exhaustion following [...] recommended at discharge. Completed by Tess Robert Mattress Finisher Clinician Co-signed by Kathy Rivera M.A.CCC/LANDSCAPE ENGINEER Occupational Therapy Facility/Department: [address] [place] Occupational Therapy Daily Treatment Note Name: Andry Pierre : 1960 Date of Service: 12/05/2023 Discharge Recommendations: Patient would benefit from continued therapy after discharge OT Equipment Recommendations ADL Assistive Devices: Shower Chair with back Other: weighted utensils Patient Diagnosis(es): There were no encounter diagnoses. Past Medical History: has a past medical history of Arthritis, Asthma, CHF (congestive heart failure) ([facility]), CKD (chronic kidney disease) stage 2, GFR 60-89 ml/min, Clotting disorder ([facility]), Congenital heart disease, COPD (chronic obstructive pulmonary disease) ([facility]), Depression, Emphysema of lung ([facility]), GERD (gastroesophageal reflux disease), GERD (gastroesophageal reflux disease), Gout, Headache(784.0), Hernia, Hernia, History of blood clots, History of DVT (deep vein thrombosis), Hyperlipidemia, Insomnia, Irritable bowel syndrome, Kidney stones, Lumbar degenerative disc disease, Lumbar radiculopathy, Obesity, PAM (obstructive sleep apnea), Parkinson disease, Parkinson's disease, Post traumatic stress disorder, Renal disease, Rheumatoid arthritis ([facility]), Stroke ([facility]), Stroke risk, Tracheostomy in place ([facility]), Tremors of nervous system, Type [...] bears weight in BUEs on 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 [facility] Office: [phone] Alberto Rice DO, Luciano Murphy DO, Humza [...] Jo Bonner CNP, Kathy Granados CNP, Sigrid Velásquez, SHERYL, Janine Turpin PA-C, KATHRIN MercedesC, Savi Iqbal CNP, Beckie Mello CNP, Nora Mace CNP, Jyoti Rojo, DRILL OPERATOR AUTOMATIC, Ronda Sellers, FIRE PROTECTION EQUIPMENT TECHNICIAN, Janell Hoyt, FIRE PROTECTION EQUIPMENT TECHNICIAN, Caryl Gonzalez, FIRE PROTECTION EQUIPMENT TECHNICIAN [facility] IN-PATIENT SERVICE [facility] Progress Note 12/05/2023 8:58 AM Name: Andry Pierre Acct: [id number] Room: [address] [place] [address] Day: 6 Admit Date: 11/29/2023 8:06 PM PCP: Say Mccormick MD Code Status: Full Code Subjective: C/C: chest pain and dizziness Interval History Status: not changed. NAEO Doing well this morning without complaints Bp stable today. Peer to peer denied ARU 12/04/23 Pending Placement to SNF Brief History: Per documentation Andry Pierre is a 63 y.o. male with history of prior CVAs (with h/o expressive aphasia, dysphasia), h/o seizures, DM 2, HFpEF, CKD 3, chronic thrombophila w/ +prothrombin gene mutation s/p DVT/PE 01/2023, nonobst CAD (s/p cath 2019), asthma/COPD with PAM with history of Parkinsons vs MG s/p deep brain stimulator 10/2008 who initially presented to [facility] 11/24 s/p fall in bathroom with acute left hip/upper thigh and back pain (hit head, no LOC) presents with No chief complaint on file. and is admitted to the hospital for the management of AMS (altered mental status). Patient transferred from [place] after undergoing tilt table evaluation for concern for orthostasis on 11/28/2022 with history of recurrent episodes of dizziness with history of stroke, complicated history. tilt table test complicated by worsening acute symptoms of dizziness with chest pain with altered sensorium. Although tilt test unremarkable for orthostasis, patient was evaluated in ED with acute symptoms and recommended admission pending transfer to [facility] for neurology evaluation. Unfortunately with bed [...] with occasional shortness of breath While in [place] ED patient did develop symptomatic hypoglycemia with blood sugars in the 50s with symptoms of feeling funny . 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 Subsequently returned status post fall 11/24 with [...] of Arthritis, Asthma, CHF (congestive heart failure) ([facility]), CKD (chronic kidney disease) stage 2, GFR 60-89 ml/min, Clotting disorder ([facility]), Congenital heart disease, COPD (chronic obstructive pulmonary disease) ([facility]), Depression, Emphysema of lung (HCC), GERD (gastroesophageal reflux disease), GERD (gastroesophageal reflux disease), Gout, Headache(784.0), Hernia, Hernia, History of blood clots, History of DVT (deep vein thrombosis), Hyperlipidemia, Insomnia, Irritable bowel syndrome, Kidney stones, Lumbar degenerative disc disease, Lumbar radiculopathy, Obesity, PAM (obstructive sleep apnea), Parkinson disease, Parkinson's disease, Post traumatic stress disorder, Renal disease, Rheumatoid arthritis ([facility]), Stroke ([facility]), Stroke risk, Tracheostomy in place ([facility]), Tremors of nervous system, Type [...] F (36.9 C) Recent Labs 12/04/23 1211 12/04/23 1614 12/04/238 12/05/23 0756 POCGLU 184* 194* 181* 131* I/O [...] 0031 12/04/23 0807 12/04/23 1211 12/04/23 1614 12/04/23 2038 12/05/23 0756 POCGLU 161* 120* 184* 194* 181* 131* ABG: Lab Results Component Value Date/Time PH 7.413 08/22/2011 03:20 PM PCO2 41.5 08/22/2011 03:20 PM PO2ART 92.5 08/22/2011 03:20 PM EST8JCY 26.0 08/22/2011 03:20 PM NBEA NOT REPORTED 08/22/2011 03:20 PM PBEA 1.8 08/22/2011 03:20 PM [id number] 95.6 08/22/2011 03:20 PM FIO2 INFORMATION NOT PROVIDED 11/30/2023 12:05 AM Lab Results Component Value Date/Time SPECIAL NOT REPORTED 10/20/2012 10:15 AM SPECIAL NOT REPORTED 10/20/2012 10:15 AM Lab Results Component Value Date/Time CULTURE NO GROWTH 10/20/2012 10:15 AM CULTURE 10/20/2012 10:15 AM Performed at [facility] [address] [place] [id number] Radiology: XR CHEST (2 VW) Result Date: [...] Chronic kidney disease (CKD), stage III (moderate) ([facility]) 11/30/2023 Yes Generalized weakness 12/02/2023 Yes CHF (congestive heart failure) ([facility]) 11/30/2023 Yes Uncontrolled hypertension 11/30/2023 [...] Chronic kidney disease (CKD), stage III (moderate) ([facility]) Generalized weakness CHF (congestive heart failure) ([facility]) Uncontrolled hypertension Dysphagia GERD (gastroesophageal [...] 2 units and then adjust accordingly Recurrent TBTk-ROEq-gladqi neurology plan History of prothrombin gene mutation with prior DVT-continue Coumadin CKD stage III-continue to monitor creatinine and will need follow-up with nephrology/PCP PAM on CPAP Discharge planning after the above workup Lori Leblanc MD 12/05/2023 8:58 AM Images from the original note were not included. [facility] Office: [phone] Alberto Rice DO, Luciano Murphy DO, Humza [...] Barillas CNP, Mary Jo Bonner CNP, Kathy Granados, FIRE PROTECTION EQUIPMENT TECHNICIAN, Sigrid Velásquez, FIRE PROTECTION EQUIPMENT TECHNICIAN, Janine Turpin, PA-C, Sue Willams, PA-C, Savi Iqbal, FIRE PROTECTION EQUIPMENT TECHNICIAN, Beckie Mello, FIRE PROTECTION EQUIPMENT TECHNICIAN, Nora Mace, FIRE PROTECTION EQUIPMENT TECHNICIAN, Jyoti Rojo, DRILL OPERATOR AUTOMATIC, Ronda Sellers, FIRE PROTECTION EQUIPMENT TECHNICIAN, Janell Hoyt, FIRE PROTECTION EQUIPMENT TECHNICIAN, Caryl Gonzalez, FIRE PROTECTION EQUIPMENT TECHNICIAN [facility] IN-PATIENT SERVICE [facility] Progress Note 12/04/2023 2:59 PM Name: Andry Pierre Acct: [id number] Room: [address] [place], [place] [address] IP Day: 5 Admit Date: 11/29/2023 8:06 PM [...] brain stimulator 10/2008 who initially presented to [facility] 11/24 s/p fall in bathroom with acute left hip/upper thigh and back pain (hit head, no LOC) presents with No chief complaint on file. and is admitted to the hospital for the management of AMS (altered mental status). Patient transferred from [place] after undergoing tilt table evaluation for concern for orthostasis on 11/28/2022 with history of recurrent episodes of dizziness with history of stroke, complicated history. tilt table test complicated by worsening acute symptoms of dizziness with chest pain with altered sensorium. Although tilt test unremarkable for orthostasis, patient was evaluated in ED with acute symptoms and recommended admission pending transfer to [facility] for neurology evaluation. Unfortunately with bed [...] with occasional shortness of breath While in [place] ED patient did develop symptomatic hypoglycemia with blood sugars in the 50s with symptoms of feeling funny . 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 Subsequently returned status post 11/24 with worsening [...] of Arthritis, Asthma, CHF (congestive heart failure) ([facility]), CKD (chronic kidney disease) stage 2, GFR 60-89 ml/min, Clotting disorder ([facility]), Congenital heart disease, COPD (chronic obstructive pulmonary disease) ([facility]), Depression, Emphysema of lung ([facility]), GERD (gastroesophageal reflux disease), GERD (gastroesophageal reflux disease), Gout, Headache(784.0), Hernia, Hernia, History of blood clots, History of DVT (deep vein thrombosis), Hyperlipidemia, Insomnia, Irritable bowel syndrome, Kidney stones, Lumbar degenerative disc disease, Lumbar radiculopathy, Obesity, PAM (obstructive sleep apnea), Parkinson disease, Parkinson's disease, Post traumatic stress disorder, Renal disease, Rheumatoid arthritis ([facility]), Stroke ([facility]), Stroke risk, Tracheostomy in place ([facility]), Tremors of nervous system, Type [...] 03:20 PM PO2ART 92.5 08/22/2011 03:20 PM WRL2MCL 26.0 08/22/2011 03:20 PM NBEA NOT REPORTED 08/22/2011 03:20 PM PBEA 1.8 08/22/2011 03:20 PM [id number] 95.6 08/22/2011 03:20 PM FIO2 INFORMATION NOT PROVIDED 11/30/2023 12:05 AM Lab Results Component Value Date/Time SPECIAL NOT REPORTED 10/20/2012 10:15 AM SPECIAL NOT REPORTED 10/20/2012 10:15 AM Lab Results Component Value Date/Time CULTURE NO GROWTH 10/20/2012 10:15 AM CULTURE 10/20/2012 10:15 AM Performed at [facility] [address] [place] [id number] Radiology: XR CHEST (2 VW) Result Date: [...] Chronic kidney disease (CKD), stage III (moderate) ([facility]) 11/30/2023 Yes Generalized weakness 12/02/2023 [...] 2 units and then adjust accordingly Recurrent ELDo-PQMe-bgzrqv neurology plan History of prothrombin gene mutation [...] Progress Note PATIENT: ANDRY PIERRE CSN #: [id number] : 1960 ADMIT DATE: 11/29/2023 8:06 PM [...] Neurology consult, Neuro assessment Thank You Torsten LEES BSN CCDS Email [email or web address] office hours M-F 6am to 2:30p Options [...] Diagnosis Code COPD (chronic obstructive pulmonary disease) ([facility]) J44.9 PAM (obstructive sleep apnea) G47.33 Obesity, morbid ([facility]) E66.01 Lumbar degenerative disc disease M51.36 Lumbar radiculopathy M54.16 Lumbar facet arthropathy M47.816 Osteoarthritis of both knees M17.0 Diabetic neuropathy ([facility]) E11.40 Morbid obesity ([facility]) E66.01 Sleep apnea, obstructive G47.33 Encounter for medication monitoring Z51.81 Chronic kidney disease (CKD), stage III (moderate) ([facility]) N18.30 Hyperkalemia E87.5 Generalized weakness R53.1 Pill rolling tremor R25.1 Muscle cramps R25.2 Acute renal failure (ARF) ([facility]) N17.9 Type II or unspecified type diabetes mellitus without mention of complication, not stated as uncontrolled E11.9 Depression F32.A Irritable bowel syndrome K58.9 Obesity E66.9 CHF (congestive heart failure) ([facility]) I50.9 Parkinson disease G20.A1 Tremors of nervous system R25.[address] ([facility]) Z93.0 Bilateral lower extremity edema R60.0 CKD (chronic kidney disease) N18.9 Uncontrolled hypertension I10 Dysphagia R13.10 Hyperlipidemia E78.5 History of DVT (deep vein thrombosis) Z86.718 Congenital heart disease Q24.9 Emphysema of lung ([facility]) J43.9 Hernia K46.9 Stroke risk Z91.89 GERD (gastroesophageal reflux disease) K21.9 Asthma J45.909 Renal disease N28.9 Gout M10.9 S/P deep brain stimulator placement Z96.89 Parkinsons G20.A1 CKD (chronic kidney disease) stage 2, GFR 60-89 ml/min N18.2 Type II or unspecified type diabetes mellitus with renal manifestations, not stated as uncontrolled(250.40) E11.29 Encounter for chronic pain management G89.29 Weight loss, intentional [id number] 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 Primary osteoarthritis of both knees M17.0 DM type 2 with diabetic peripheral neuropathy ([facility]) E11.42 Need for immunization against influenza Z23 Morbid obesity due to excess calories ([facility]) E66.01 Diabetic mononeuropathy associated with diabetes mellitus due to underlying condition ([facility]) E08.41 AMS (altered mental status) R41.82 Altered mental status R41.82 Multiple falls R29.6 Essential tremor G25.0 Syncope and collapse R55 Staring episodes R40.4 Altered awareness, transient R40.4 Acute encephalopathy G93.40 Neuropathy G62.9 Pain: Patient did not complain of any pain. Cognitive Treatment Treatment time: 9718-7297 Subjective: [x] Alert [x] Cooperative [] Confused [...] at discharge. Treatment completed by: Jimmy Alva, Mattress Finisher Clinician Pharmacy Note Warfarin Consult follow-up Warfarin dose prior to admission: 17.5 mg Sun, 15 mg all other days (per medication management clinic in [place], last visit 11/11; clinic noted recent dose [...] sent to the ED. Ultimately transferred to [facility]. Neurology was consulted for encephalopathy. Patient's reported [...] been seen by neuromuscular neurology at the [facility] on 11/06/2023 with noted essential tremor. Prior [...] MISC ACCU-CHEK COMPACT PLUS strip 0 Allergies: Dereck Kunz is allergic to beta adrenergic blockers, hydralazine, neuromuscular blocking agents [neuromuscular blocking agents], neurontin [gabapentin], valium, and other. Past Medical History: Diagnosis Date Arthritis Asthma CHF (congestive heart failure) ([facility]) CKD (chronic kidney disease) stage 2, GFR 60-89 ml/min 02/16/2014 Clotting disorder ([facility]) Congenital heart disease COPD (chronic obstructive pulmonary disease) ([facility]) Depression Emphysema of lung ([facility]) GERD (gastroesophageal reflux disease) GERD (gastroesophageal reflux disease) Gout Headache(784.0) Hernia Hernia History of blood clots History of DVT (deep vein thrombosis) Hyperlipidemia Insomnia Irritable bowel syndrome Kidney stones Lumbar degenerative disc disease 01/25/2014 Lumbar radiculopathy 01/25/2014 Obesity PAM (obstructive sleep apnea) 11/16/2013 Parkinson disease Parkinson's disease Post traumatic stress disorder Renal disease Rheumatoid arthritis ([facility]) Stroke ([facility]) 2018 Stroke risk Tracheostomy in place ([facility]) 08/22/2011 Tremors of nervous system [...] INR 3.0 12/04/2023 LABA1C 8.8 (H) 11/25/2023 [id number] 11/30/2023 MG 2.7 (H) 11/30/2023 PHOS [...] is already scheduled through his PCP in [place]. Please note that this note was generated using a voice recognition dictation software. Although every effort was made to ensure the accuracy of this automated corrosion prevention metal sprayer, some errors in corrosion prevention metal sprayer may have occurred. Pharmacy Note Warfarin Consult follow-up Warfarin dose prior to admission: 17.5 mg Sun, 15 mg all other days (per medication management clinic in [place], last visit 11/11; clinic noted recent dose [...] PharmD, 12/03/2023 4:34 PM Physical Therapy Facility/Department: [address] [place] Physical Therapy Daily Treatment Note Name: Andry Pierre : 1960 Date of Service: 12/03/2023 Discharge Recommendations: Patient would benefit from continued therapy after discharge PT Equipment Recommendations Equipment Needed: No Patient Diagnosis(es): There were no encounter diagnoses. Past Medical History: has a past medical history of Arthritis, Asthma, CHF (congestive heart failure) ([facility]), CKD (chronic kidney disease) stage 2, GFR 60-89 ml/min, Clotting disorder ([facility]), Congenital heart disease, COPD (chronic obstructive pulmonary disease) ([facility]), Depression, Emphysema of lung ([facility]), GERD (gastroesophageal reflux disease), GERD (gastroesophageal reflux disease), Gout, Headache(784.0), Hernia, Hernia, History of blood clots, History of DVT (deep vein thrombosis), Hyperlipidemia, Insomnia, Irritable bowel syndrome, Kidney stones, Lumbar degenerative disc disease, Lumbar radiculopathy, Obesity, PAM (obstructive sleep apnea), Parkinson disease, Parkinson's disease, Post traumatic stress disorder, Renal disease, Rheumatoid arthritis ([facility]), Stroke ([facility]), Stroke risk, Tracheostomy in place ([facility]), Tremors of nervous system, Type [...] (06/03/2003); hernia repair (Right); Upper gastrointestinal endoscopy (15); Uvulopalatopharygoplasty; Colonoscopy (); and Cholecystectomy. Assessment Body [...] Comments: pt sitting in bedside chair upon song writer entering room. 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 Reps: 10 OutComes Score [facility] - Mobility [facility] Basic Mobility - Inpatient How much help [...] 3-5 steps with a railing?: A Lot [facility] Inpatient Mobility Raw Score : 17 [facility] Inpatient T-Scale Score : 42.13 Mobility Inpatient [...] their individualized functional mobility/self-care task. Letty Lemon HAT DESIGNER Occupational Therapy Facility/Department: [address] [facility] Daily Treatment Note Name: Andry Pierre : 1960 Date of Service: 12/03/2023 Discharge Recommendations: Patient would benefit from continued therapy after discharge OT Equipment Recommendations ADL Assistive Devices: Shower Chair with back Other: weighted utensils Patient Diagnosis(es): There were no encounter diagnoses. Past Medical History: has a past medical history of Arthritis, Asthma, CHF (congestive heart failure) ([facility]), CKD (chronic kidney disease) stage 2, GFR 60-89 ml/min, Clotting disorder ([facility]), Congenital heart disease, COPD (chronic obstructive pulmonary disease) ([facility]), Depression, Emphysema of lung ([facility]), GERD (gastroesophageal reflux disease), GERD (gastroesophageal reflux disease), Gout, Headache(784.0), Hernia, Hernia, History of blood clots, History of DVT (deep vein thrombosis), Hyperlipidemia, Insomnia, Irritable bowel syndrome, Kidney stones, Lumbar degenerative disc disease, Lumbar radiculopathy, Obesity, PAM (obstructive sleep apnea), Parkinson disease, Parkinson's disease, Post traumatic stress disorder, Renal disease, Rheumatoid arthritis ([facility]), Stroke ([facility]), Stroke risk, Tracheostomy in place ([facility]), Tremors of nervous system, Type [...] of arm rests. Cognition Overall Cognitive Status: WFL Cognition Comment: [...] Code Treatment Minutes: 15 Minutes (co-tx w/ HAT DESIGNER for safety) CAROLE Arriola Physician Progress Note PATIENT: ANDRY PIERRE CSN #: [id number] : 1960 ADMIT DATE: 11/29/2023 8:06 PM [...] Thank You Torsten LEES BSN CCDS Email [email or web address] office hours M-F 6am to 2:30p Options [...] from the original note were not included. [facility] Office: [phone] Alberto Rice DO, Luciano Murphy DO, Humza [...] Parker MD, Garett Valentine MD, Rosalia Mobley, FIRE PROTECTION EQUIPMENT TECHNICIAN, Criss Gray, FIRE PROTECTION EQUIPMENT TECHNICIAN, Lefty Matute, FIRE PROTECTION EQUIPMENT TECHNICIAN, Brittny Quinones, DNP, Kacey Meeks, FIRE PROTECTION EQUIPMENT TECHNICIAN, Sugey Barillas, FIRE PROTECTION EQUIPMENT TECHNICIAN, Mary Jo Bonner, FIRE PROTECTION EQUIPMENT TECHNICIAN, Kathy Granados, FIRE PROTECTION EQUIPMENT TECHNICIAN, Sigrid Velásquez, FIRE PROTECTION EQUIPMENT TECHNICIAN, Janine Turpin PA-C, Sue Willams PA-C, Savi Iqbal, FIRE PROTECTION EQUIPMENT TECHNICIAN, Beckie Mello, FIRE PROTECTION EQUIPMENT TECHNICIAN, Nora Mace, FIRE PROTECTION EQUIPMENT TECHNICIAN, Jyoti Rojo, DRILL OPERATOR AUTOMATIC, Ronda Sellers, FIRE PROTECTION EQUIPMENT TECHNICIAN, Janell Hoyt, FIRE PROTECTION EQUIPMENT TECHNICIAN, Caryl Gonzalez, FIRE PROTECTION EQUIPMENT TECHNICIAN [facility] IN-PATIENT SERVICE [facility] Progress Note 12/03/2023 12:01 PM Name: Andry Pierre Acct: [id number] Room: [facility]/0143-01 Day: 4 Admit Date: 11/29/2023 8:06 PM [...] brain stimulator 10/2008 who initially presented to [facility] 11/24 s/p fall in bathroom with acute left hip/upper thigh and back pain (hit head, no LOC) presents with No chief complaint on file. and is admitted to the hospital for the management of AMS (altered mental status). Patient transferred from [place] after undergoing tilt table evaluation for concern for orthostasis on 11/28/2022 with history of recurrent episodes of dizziness with history of stroke, complicated history. tilt table test complicated by worsening acute symptoms of dizziness with chest pain with altered sensorium. Although tilt test unremarkable for orthostasis, patient was evaluated in ED with acute symptoms and recommended admission pending transfer to [facility] for neurology evaluation. Unfortunately with bed [...] with occasional shortness of breath While in [place] ED patient did develop symptomatic hypoglycemia with blood sugars in the 50s with symptoms of feeling funny . 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 Subsequently returned status post fall 11/24 with [...] of Arthritis, Asthma, CHF (congestive heart failure) ([facility]), CKD (chronic kidney disease) stage 2, GFR 60-89 ml/min, Clotting disorder ([facility]), Congenital heart disease, COPD (chronic obstructive pulmonary disease) ([facility]), Depression, Emphysema of lung ([facility]), GERD (gastroesophageal reflux disease), GERD (gastroesophageal reflux disease), Gout, Headache(784.0), Hernia, Hernia, History of blood clots, History of DVT (deep vein thrombosis), Hyperlipidemia, Insomnia, Irritable bowel syndrome, Kidney stones, Lumbar degenerative disc disease, Lumbar radiculopathy, Obesity, PAM (obstructive sleep apnea), Parkinson disease, Parkinson's disease, Post traumatic stress disorder, Renal disease, Rheumatoid arthritis ([facility]), Stroke ([facility]), Stroke risk, Tracheostomy in place ([facility]), Tremors of nervous system, Type [...] C), Max:98 F (36.7 C) Recent Labs 12/02/23 1204 12/02/23 1606 12/02/23 1955 12/03/23 0759 POCGLU 172* 169* 179* 83 I/O [...] 2.8 2.8 3.3 Chemistry: Recent Labs 12/01/23 0606 12/01/23 1554 12/02/23 0523 NA 140 -- 140 K 3.8 -- 3.7 CL 108* -- 109* CO2 22 -- 22 GLUCOSE 144* -- 165* BUN 39* -- 36* CREATININE 1.6* -- 1.5* ANIONGAP 10 -- 9 LABGLOM 48* -- 52* CALCIUM 8.9 -- 8.8 PSA 1.50 -- -- TROPHS -- 23* -- Recent Labs 12/01/23200312/02/23 0754 12/02/23 1204 12/02/23 1606 12/02/23 1955 12/03/23 0759 POCGLU 168* 117* 172* 169* 179* 83 ABG: Lab Results Component Value Date/Time PH 7.413 08/22/2011 03:20 PM PCO2 41.5 08/22/2011 03:20 PM PO2ART 92.5 08/22/2011 03:20 PM IEU5OXT 26.0 08/22/2011 03:20 PM NBEA NOT REPORTED 08/22/2011 03:20 PM PBEA 1.8 08/22/2011 03:20 PM H6DRKMUA 95.6 08/22/2011 03:20 PM FIO2 INFORMATION NOT PROVIDED 11/30/2023 12:05 AM Lab Results Component Value Date/Time SPECIAL NOT REPORTED 10/20/2012 10:15 AM SPECIAL NOT REPORTED 10/20/2012 10:15 AM Lab Results Component Value Date/Time CULTURE NO GROWTH 10/20/2012 10:15 AM CULTURE 10/20/2012 10:15 AM Performed at [facility] [address] [address] Radiology: XR CHEST (2 VW) Result Date: [...] 2 units and then adjust accordingly Recurrent WAHf-RKGx-azwxpg neurology plan History of prothrombin gene mutation with prior DVT-continue Coumadin CKD stage III-continue to monitor creatinine and will need follow-up with nephrology/PCP PAM on CPAP Discharge planning after the above workup Lori Leblanc MD 12/03/2023 12:01 PM Physician Progress Note PATIENT: ANDRY PIERRE CSN #: [id number] : 1960 ADMIT DATE: 11/29/2023 8:06 PM DISCH DATE: RESPONDING PROVIDER #: oLri Leblanc MD QUERY TEXT: Pt admitted presented [...] Thank You Torsten LEES BSN CCDS Email [email or web address] office hours M-F 6am to 2:30p Options [...] sent to the ED. Ultimately transferred to [facility]. Neurology was consulted for encephalopathy. Patient's reported [...] been seen by neuromuscular neurology at the [facility] on 11/06/2023 with noted essential tremor. Prior [...] NEEDLE ANTHONY U/F 32G X 4 MM [facility] ACCU-CHEK COMPACT PLUS strip 0 Allergies: Andry Pierre is allergic to beta adrenergic blockers, hydralazine, neuromuscular blocking agents [neuromuscular blocking agents], neurontin [gabapentin], valium, and other. Past Medical History: Diagnosis Date Arthritis Asthma CHF (congestive heart failure) ([facility]) CKD (chronic kidney disease) stage 2, GFR 60-89 ml/min 02/16/2014 Clotting disorder ([facility]) Congenital heart disease COPD (chronic obstructive pulmonary disease) ([facility]) Depression Emphysema of lung ([facility]) GERD (gastroesophageal reflux disease) GERD (gastroesophageal reflux disease) Gout Headache(784.0) Hernia Hernia History of blood clots History of DVT (deep vein thrombosis) Hyperlipidemia Insomnia Irritable bowel syndrome Kidney stones Lumbar degenerative disc disease 01/25/2014 Lumbar radiculopathy 01/25/2014 Obesity PAM (obstructive sleep apnea) 11/16/2013 Parkinson disease Parkinson's disease Post traumatic stress disorder Renal disease Rheumatoid arthritis ([facility]) Stroke ([facility]) 2018 Stroke risk Tracheostomy in place (HCC) [...] INR 3.3 12/03/2023 LABA1C 8.8 (H) 11/25/2023 [id number] 11/30/2023 MG 2.7 (H) 11/30/2023 PHOS [...] is already scheduled through his PCP in [place]. Please note that this note was generated using a voice recognition dictation software. Although every effort was made to ensure the accuracy of this automated corrosion prevention metal sprayer, some errors in corrosion prevention metal sprayer may have occurred. Associated attestation - Krystian Covlin MD - 12/03/2023 9:03 PM EST Attending Physician Statement I have discussed the case of Andry Pierre including pertinent history and exam findings with the resident/ FIRE PROTECTION EQUIPMENT TECHNICIAN. I reviewed medications, clinical labs, x-rays and other diagnostic tests with the resident/ FIRE PROTECTION EQUIPMENT TECHNICIAN. I have seen and examined the patient [...] not tolerate those. He has been having pnux-moa-jbxoyfs in lower legs and feet and also [...] from the original note were not included. [facility] Office: [phone] Alberto Rice DO, Luciano Murphy DO, Humza [...] Abdirahman Hunt MD, Da Moore MD, Geneva Casiaon MD, Matthew Perez DO, Tk Connor DO, Jess Parker MD, Garett Valentine MD, Rosalia Mobley CNP, Criss Gray CNP, Lefty Matute CNP, Brittny Quinones DNP, Kacey Meeks CNP, Sugey Barillas, SHERYL, Mary Jo Bonner CNP, Kathy Granados CNP, Sigrid Velásquez, FIRE PROTECTION EQUIPMENT TECHNICIAN, Janine Turpin, KATHRINC, Sue Willams, PARolfC, Savi Iqbal, FIRE PROTECTION EQUIPMENT TECHNICIAN, Beckie Mello, FIRE PROTECTION EQUIPMENT TECHNICIAN, Nora Mace, FIRE PROTECTION EQUIPMENT TECHNICIAN, Jyoti Rojo, ANICETO, Ronda Sellers, FIRE PROTECTION EQUIPMENT TECHNICIAN, Janell Hoyt, FIRE PROTECTION EQUIPMENT TECHNICIAN, Caryl Gonzalez, FIRE PROTECTION EQUIPMENT TECHNICIAN [facility] IN-PATIENT SERVICE [facility] Progress Note 12/02/2023 3:11 PM Name: Andry Pierre Acct: [id number] Room: 0143/0143-01 Day: 3 Admit Date: 11/29/2023 [...] back to home dose Pending Placement to [place] Brief History: Per documentation Andry Pierre is a 63 y.o. male with history of prior CVAs (with h/o expressive aphasia, dysphasia), h/o seizures, DM 2, HFpEF, CKD 3, chronic thrombophila w/ +prothrombin gene mutation s/p DVT/PE 01/2023, nonobst CAD (s/p cath 2019), asthma/COPD with PAM with history of Parkinsons vs MG s/p deep brain stimulator 10/2008 who initially presented to [facility] 11/24 s/p fall in bathroom with acute left hip/upper thigh and back pain (hit head, no LOC) presents with No chief complaint on file. and is admitted to the hospital for the management of AMS (altered mental status). Patient transferred from [place] after undergoing tilt table evaluation for concern for orthostasis on 11/28/2022 with history of recurrent episodes of dizziness with history of stroke, complicated history. tilt table test complicated by worsening acute symptoms of dizziness with chest pain with altered sensorium. Although tilt test unremarkable for orthostasis, patient was evaluated in ED with acute symptoms and recommended admission pending transfer to [facility] for neurology evaluation. Unfortunately with bed [...] with occasional shortness of breath While in [place] ED patient did develop symptomatic hypoglycemia with blood sugars in the 50s with symptoms of feeling funny . 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 Subsequently returned status post fall 11/24 with [...] of Arthritis, Asthma, CHF (congestive heart failure) ([facility]), CKD (chronic kidney disease) stage 2, GFR 60-89 ml/min, Clotting disorder ([facility]), Congenital heart disease, COPD (chronic obstructive pulmonary disease) ([facility]), Depression, Emphysema of lung ([facility]), GERD (gastroesophageal reflux disease), GERD (gastroesophageal reflux disease), Gout, Headache(784.0), Hernia, Hernia, History of blood clots, History of DVT (deep vein thrombosis), Hyperlipidemia, Insomnia, Irritable bowel syndrome, Kidney stones, Lumbar degenerative disc disease, Lumbar radiculopathy, Obesity, PAM (obstructive sleep apnea), Parkinson disease, Parkinson's disease, Post traumatic stress disorder, Renal disease, Rheumatoid arthritis ([facility]), Stroke ([facility]), Stroke risk, Tracheostomy in place ([facility]), Tremors of nervous system, Type [...] F (36.8 C) Recent Labs 12/01/23 1740 12/01/23200312/02/23 0754 12/02/23 1204 POCGLU 108 168* 117* [...] MYOGLOBIN 59 -- -- -- Recent Labs 11/29/23201711/29/23203311/30/23 0648 11/30/23 0807 11/30/23 0830 11/30/23 0930 [...] 03:20 PM PO2ART 92.5 08/22/2011 03:20 PM [id number] 26.0 08/22/2011 03:20 PM NBEA NOT REPORTED 08/22/2011 03:20 PM PBEA 1.8 08/22/2011 03:20 PM [id number] 95.6 08/22/2011 03:20 PM FIO2 INFORMATION NOT PROVIDED 11/30/2023 12:05 AM Lab Results Component Value Date/Time SPECIAL NOT REPORTED 10/20/2012 10:15 AM SPECIAL NOT REPORTED 10/20/2012 10:15 AM Lab Results Component Value Date/Time CULTURE NO GROWTH 10/20/2012 10:15 AM CULTURE 10/20/2012 10:15 AM Performed at [facility] [address] [place] [id number] Radiology: XR CHEST (2 VW) Result Date: [...] Chronic kidney disease (CKD), stage III (moderate) ([facility]) 11/30/2023 Yes CHF (congestive heart failure) ([facility]) 11/30/2023 Yes Uncontrolled hypertension 11/30/2023 Yes Dysphagia 11/30/2023 Yes GERD (gastroesophageal reflux disease) 11/30/2023 Yes S/P deep brain stimulator placement 11/30/2023 Yes Spondylarthrosis 11/30/2023 Yes DM type 2 with diabetic peripheral neuropathy ([facility]) 11/30/2023 Yes Altered mental status 11/29/2023 Yes Multiple falls 11/30/2023 Yes Essential tremor 11/30/2023 Yes Staring episodes 12/01/2023 Yes Altered awareness, transient 12/01/2023 Yes Principal Problem: AMS (altered mental status) Active Problems: Lumbar degenerative disc disease Diabetic neuropathy (HCC) Sleep apnea, obstructive Syncope and collapse Chronic kidney disease (CKD), stage III (moderate) ([facility]) CHF (congestive heart failure) ([facility]) Uncontrolled hypertension Dysphagia GERD (gastroesophageal reflux disease) S/P deep brain stimulator placement Spondylarthrosis DM type 2 with diabetic peripheral neuropathy ([facility]) Altered mental status Multiple falls Essential tremor [...] 2 units and then adjust accordingly Recurrent OYOs-MZWz-xuzanu neurology plan History of prothrombin gene mutation with prior DVT-continue Coumadin CKD stage III-continue to monitor creatinine and will need follow-up with nephrology/PCP PAM on CPAP Discharge planning after the above workup Lori Leblanc MD 12/02/2023 3:11 PM LANDSCAPE ENGINEER ALL NOTES Speech Language Pathology [facility] Cognitive Treatment Note Date: 12/02/2023 Patient s Name: Andry Pierre Diagnosis: Patient Active Problem List Diagnosis Code COPD (chronic obstructive pulmonary disease) ([facility]) J44.9 PAM (obstructive sleep apnea) G47.33 Obesity, morbid ([facility]) E66.01 Lumbar degenerative disc disease M51.36 Lumbar radiculopathy M54.16 Lumbar facet arthropathy M47.816 Osteoarthritis of both knees M17.0 Diabetic neuropathy ([facility]) E11.40 Morbid obesity ([facility]) E66.01 Sleep apnea, obstructive G47.33 Encounter for medication monitoring Z51.81 Chronic kidney disease (CKD), stage III (moderate) ([facility]) N18.30 Hyperkalemia E87.5 Fatigue R53.83 Pill rolling tremor R25.1 Muscle cramps R25.2 Acute renal failure (ARF) ([facility]) N17.9 Type II or unspecified type diabetes mellitus without mention of complication, not stated as uncontrolled E11.9 Depression F32.A Irritable bowel syndrome K58.9 Obesity E66.9 CHF (congestive heart failure) ([facility]) I50.9 Parkinson disease G20.A1 Tremors of nervous system R25.[address] ([facility]) Z93.0 Bilateral lower extremity edema R60.0 CKD (chronic kidney disease) N18.9 Uncontrolled hypertension I10 Dysphagia R13.10 Hyperlipidemia E78.5 History of DVT (deep vein thrombosis) Z86.718 Congenital heart disease Q24.9 Emphysema of lung ([facility]) J43.9 Hernia K46.9 Stroke risk Z91.89 GERD (gastroesophageal reflux disease) K21.9 Asthma J45.909 Renal disease N28.9 Gout M10.9 S/P deep brain stimulator placement Z96.89 Parkinsons G20.A1 CKD (chronic kidney disease) stage 2, GFR 60-89 ml/min N18.2 Type II or unspecified type diabetes mellitus with renal manifestations, not stated as uncontrolled(250.40) E11.29 Encounter for chronic pain management G89.29 Weight loss, intentional [id number] 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 Primary osteoarthritis of both knees M17.0 DM type 2 with diabetic peripheral neuropathy ([facility]) E11.42 Need for immunization against influenza Z23 Morbid obesity due to excess calories ([facility]) E66.01 Diabetic mononeuropathy associated with diabetes mellitus due to underlying condition ([facility]) E08.41 AMS (altered mental status) R41.82 Altered mental status R41.82 Multiple falls R29.6 Essential tremor G25.0 Syncope and collapse R55 Staring episodes R40.4 Altered awareness, transient R40.4 Pain: 0/10 Cognitive Treatment Treatment time: 1409 - 1436 Subjective: [x] Alert [x] Cooperative [] Confused [...] and visual cues Picture retention (pet store): 7/10 independently. Given 30 sec to study picture Picture retention (fishing): 9/10 independently. Given 30 sec to study picture Problem Solving/Reasoning: Word deductions: 6/6 independently Other: Pt. Stated feelings of mental [...] recommended at discharge. Completed by Tess Robert Mattress Finisher Clinician Co-signed by Sonja Madera M.S. CCC/LANDSCAPE ENGINEER Pharmacy Note Warfarin Consult follow-up Warfarin dose prior to admission: 17.5 mg Sun, 15 mg all other days (per medication management clinic in [place], last visit 11/11; clinic noted recent dose [...] home regimen Daily PT/INR while inpatient. Nolan Mccarty, Lorraine, 12/02/2023 12:34 PM Routine EEG completed NEUROLOGY [...] MISC ACCU-CHEK COMPACT PLUS strip 0 Allergies: Dereck Kunz is allergic to beta adrenergic blockers, hydralazine, neuromuscular blocking agents [neuromuscular blocking agents], neurontin [gabapentin], valium, and other. Past Medical History: Diagnosis Date Arthritis Asthma CHF (congestive heart failure) ([facility]) CKD (chronic kidney disease) stage 2, GFR 60-89 ml/min 02/16/2014 Clotting disorder ([facility]) Congenital heart disease COPD (chronic obstructive pulmonary disease) ([facility]) Depression Emphysema of lung ([facility]) GERD (gastroesophageal reflux disease) GERD (gastroesophageal reflux disease) Gout Headache(784.0) Hernia Hernia History of blood clots History of DVT (deep vein thrombosis) Hyperlipidemia Insomnia Irritable bowel syndrome Kidney stones Lumbar degenerative disc disease 01/25/2014 Lumbar radiculopathy 01/25/2014 Obesity PAM (obstructive sleep apnea) 11/16/2013 Parkinson disease Parkinson's disease Post traumatic stress disorder Renal disease Rheumatoid arthritis ([facility]) Stroke ([facility]) 2018 Stroke risk Tracheostomy in place ([facility]) 08/22/2011 Tremors of nervous system [...] INR 2.8 12/02/2023 LABA1C 8.8 (H) 11/25/2023 [id number] 397 11/30/2023 MG 2.7 (H) 11/30/2023 PHOS [...] meaning may be extrapolated by contextual derivation. LANDSCAPE ENGINEER ALL NOTES Speech Language Pathology [facility] Cognitive Treatment Note Date: 12/01/2023 Patient s Name: Andry Pierre Diagnosis: Patient Active Problem List Diagnosis Code COPD (chronic obstructive pulmonary disease) ([facility]) J44.9 PAM (obstructive sleep apnea) G47.33 Obesity, morbid ([facility]) E66.01 Lumbar degenerative disc disease M51.36 Lumbar radiculopathy M54.16 Lumbar facet arthropathy M47.816 Osteoarthritis of both knees M17.0 Diabetic neuropathy ([facility]) E11.40 Morbid obesity ([facility]) E66.01 Sleep apnea, obstructive G47.33 Encounter for medication monitoring Z51.81 Chronic kidney disease (CKD), stage III (moderate) ([facility]) N18.30 Hyperkalemia E87.5 Fatigue R53.83 Pill rolling tremor R25.1 Muscle cramps R25.2 Acute renal failure (ARF) ([facility]) N17.9 Type II or unspecified type diabetes mellitus without mention of complication, not stated as uncontrolled E11.9 Depression F32.A Irritable bowel syndrome K58.9 Obesity E66.9 CHF (congestive heart failure) ([facility]) I50.9 Parkinson disease G20.A1 Tremors of nervous system R25.[address] ([facility]) Z93.0 Bilateral lower extremity edema R60.0 CKD (chronic kidney disease) N18.9 Uncontrolled hypertension I10 Dysphagia R13.10 Hyperlipidemia E78.5 History of DVT (deep vein thrombosis) Z86.718 Congenital heart disease Q24.9 Emphysema of lung ([facility]) J43.9 Hernia K46.9 Stroke risk Z91.89 GERD (gastroesophageal reflux disease) K21.9 Asthma J45.909 Renal disease N28.9 Gout M10.9 S/P deep brain stimulator placement Z96.89 Parkinsons G20.A1 CKD (chronic kidney disease) stage 2, GFR 60-89 ml/min N18.2 Type II or unspecified type diabetes mellitus with renal manifestations, not stated as uncontrolled(250.40) E11.29 Encounter for chronic pain management G89.29 Weight loss, intentional [id number] 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 Completed by Tess Robert Mattress Finisher Clinician Co-signed by Sonja Madera M.S., CCC/LANDSCAPE ENGINEER Pharmacy Note Warfarin Consult follow-up Warfarin dose prior to admission: 17.5 mg Sun, 15 mg all other days (per medication management clinic in [place], last visit 11/11; clinic noted recent dose [...] PharmD, 12/01/2023 1:02 PM Physical Therapy Facility/Department: [address] [place] Physical Therapy Initial Assessment Name: [...] brain stimulator 10/2008 who initially presented to [facility] 11/24 s/p fall in bathroom with acute [...] of Arthritis, Asthma, CHF (congestive heart failure) ([facility]), CKD (chronic kidney disease) stage 2, GFR 60-89 ml/min, Clotting disorder ([facility]), Congenital heart disease, COPD (chronic obstructive pulmonary disease) ([facility]), Depression, Emphysema of lung (HCC), GERD (gastroesophageal reflux disease), GERD (gastroesophageal reflux [...] Needs assistance Transfer Assistance: Needs assistance Active Cattle Sorter: No Patient's Cattle Sorter Info: riends from [employer]. does not drive Mode of Transportation: [...] of <10 inches is fall risk): Yes [facility] Basic Mobility - Inpatient How much help [...] 3-5 steps with a railing?: A Lot [facility] Inpatient Mobility Raw Score : 17 [facility] Inpatient T-Scale Score : 42.13 Mobility Inpatient CMS 0-100% Score: 50.57 Mobility Inpatient [facility] G-Code Modifier : CK Goals Short Term [...] from the original note were not included. [facility] Office: [phone] Alberto Rice DO, Luciano Murphy DO, Humza James DO, Jc Maria DO, Nancy Paz MD, Naz Cruz MD, Demetrio Patel MD, Hortensia Maynard MD, Filiberto Vizcaino MD, Polly Ramos MD, Julia Blanco MD, Bibi Kim DO, Yaneli Lugo MD, Chepe Pfeiffer MD, Andry Rice DO, Jamia Nur MD, Obi Alford DO, Jacquelyn Roper MD, Almtia Moya MD, Jackie Rivas MD, Kylie Morales [...] CNP, Kathy Granados CNP, Sigrid Velásquez CNP, KATHRIN McmillanC, KATHRIN MercedesC, Savi Iqbal CNP, Beckie Mello, FIRE PROTECTION EQUIPMENT TECHNICIAN, Nora Mace, FIRE PROTECTION EQUIPMENT TECHNICIAN, Jyoti Rojo, DRILL OPERATOR AUTOMATIC, Ronda Sellers, FIRE PROTECTION EQUIPMENT TECHNICIAN, Janell Hoyt, FIRE PROTECTION EQUIPMENT TECHNICIAN, Caryl Gonzalez, FIRE PROTECTION EQUIPMENT TECHNICIAN [facility] IN-PATIENT SERVICE [facility] Progress Note 12/01/2023 1:10 PM Name: Andry Pierre Acct: [id number] Room: [address] [place] [address] Day: 2 Admit Date: 11/29/2023 8:06 PM [...] brain stimulator 10/2008 who initially presented to [facility] 11/24 s/p fall in bathroom with acute left hip/upper thigh and back pain (hit head, no LOC) presents with No chief complaint on file. and is admitted to the hospital for the management of AMS (altered mental status). Patient transferred from [place] after undergoing tilt table evaluation for concern for orthostasis on 11/28/2022 with history of recurrent episodes of dizziness with history of stroke, complicated history. tilt table test complicated by worsening acute symptoms of dizziness with chest pain with altered sensorium. Although tilt test unremarkable for orthostasis, patient was evaluated in ED with acute symptoms and recommended admission pending transfer to [facility] for neurology evaluation. Unfortunately with bed [...] with occasional shortness of breath While in [place] ED patient did develop symptomatic hypoglycemia with blood sugars in the 50s with symptoms of feeling funny . 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 Subsequently returned status post fall 11/24 with [...] of Arthritis, Asthma, CHF (congestive heart failure) ([facility]), CKD (chronic kidney disease) stage 2, GFR 60-89 ml/min, Clotting disorder ([facility]), Congenital heart disease, COPD (chronic obstructive pulmonary disease) ([facility]), Depression, Emphysema of lung ([facility]), GERD (gastroesophageal reflux disease), GERD (gastroesophageal reflux disease), Gout, Headache(784.0), Hernia, Hernia, History of blood clots, History of DVT (deep vein thrombosis), Hyperlipidemia, Insomnia, Irritable bowel syndrome, Kidney stones, Lumbar degenerative disc disease, Lumbar radiculopathy, Obesity, PAM (obstructive sleep apnea), Parkinson disease, Parkinson's disease, Post traumatic stress disorder, Renal disease, Rheumatoid arthritis ([facility]), Stroke ([facility]), Stroke risk, Tracheostomy in place ([facility]), Tremors of nervous system, Type [...] -50 ml Labs: Hematology: Recent Labs 11/28/23 14211/30/23 0648 12/01/23 0606 WBC 9.2 10.1 10.9 RBC 5.09 4.94 4.68 HGB 15.9 15.4 14.6 HCT 48.5 49.3 46.3 MCV 95.3 99.8 98.9 MCH 31.2 31.2 31.2 MCHC 32.8 31.2 31.5 RDW 14.0 14.2 14.4 PLT 233 214 223 MPV 9.9 10.0 10.4 SEDRATE -- 18 -- CRP -- 4.8 -- INR -- 3.0 2.8 Chemistry: Recent Labs 11/28/23 14211/28/23 1555 11/29/23201711/30/23 0648 12/01/23 0606 NA 143 -- 144 146* 140 K 3.9 -- 4.1 3.7 3.8 CL 107 -- 109* 114* 108* CO2 -- GLUCOSE 77 -- 151* 49* 144* BUN [...] -- -- 59 -- Recent Labs 11/28/23 14211/28/23201411/29/23201711/29/23 2034 11/30/23 0648 11/30/23 0807 11/30/23 0830 [...] 03:20 PM PO2ART 92.5 08/22/2011 03:20 PM QPV4YTW 26.0 08/22/2011 03:20 PM NBEA NOT REPORTED 08/22/2011 03:20 PM PBEA 1.8 08/22/2011 03:20 PM I7QPCDAY 95.6 08/22/2011 03:20 PM FIO2 INFORMATION NOT PROVIDED 11/30/2023 12:05 AM Lab Results Component Value Date/Time SPECIAL NOT REPORTED 10/20/2012 10:15 AM SPECIAL NOT REPORTED 10/20/2012 10:15 AM Lab Results Component Value Date/Time CULTURE NO GROWTH 10/20/2012 10:15 AM CULTURE 10/20/2012 10:15 AM Performed at [facility] [address] [place] [address] [id number] Radiology: XR CHEST (2 VW) Result Date: [...] (HCC) 11/30/2023 Yes CHF (congestive heart failure) ([facility]) 11/30/2023 Yes Uncontrolled hypertension 11/30/2023 [...] III (moderate) (HCC) CHF (congestive heart failure) ([facility]) Uncontrolled hypertension Dysphagia GERD (gastroesophageal [...] 2 units and then adjust accordingly Recurrent [id number]-siempo neurology plan History of prothrombin gene mutation [...] Date Arthritis Asthma CHF (congestive heart failure) ([facility]) CKD (chronic kidney disease) stage 2, GFR 60-89 ml/min 02/16/2014 Clotting disorder ([facility]) Congenital heart disease COPD (chronic obstructive pulmonary disease) ([facility]) Depression Emphysema of lung ([facility]) GERD (gastroesophageal reflux disease) GERD (gastroesophageal reflux disease) Gout Headache(784.0) Hernia Hernia History of blood clots History of DVT (deep vein thrombosis) Hyperlipidemia Insomnia Irritable bowel syndrome Kidney stones Lumbar degenerative disc disease 01/25/2014 Lumbar radiculopathy 01/25/2014 Obesity PAM (obstructive sleep apnea) 11/16/2013 Parkinson disease Parkinson's disease Post traumatic stress disorder Renal disease Rheumatoid arthritis ([facility]) Stroke ([facility]) 2018 Stroke risk Tracheostomy in place ([facility]) 08/22/2011 Tremors of nervous system [...] 3.7 3.8 CL 109* 114* 108* CO2 24 21 22 BUN 36* 37* 39* CREATININE 1.6* 1.5* [...] INR 2.8 12/01/2023 LABA1C 8.8 (H) 11/25/2023 [id number] 397 11/30/2023 MG 2.7 (H) 11/30/2023 PHOS [...] Pulse: 95 75 69 68 Resp: 18 Temp: 98.1 F (36.7 C) 98 [...] any changes in patients neurologic status. Tal Latham, SHERYL 12/01/23 6:20 AM Associated attestation - Marlon Barlow MD - 12/01/2023 10:04 PM EST I have reviewed and agree with Shira Noa's note. I also saw and examined the patient today. He continues to have similar c/o weakness. I reviewed CTs of the spine, as well as the radiologists' reports. I am able to see records that he had an EMG done at [facility] on 11/06/23, but I am unable to [...] with questions or concerns. Occupational Therapy Facility/Department: [address] Occupational Therapy Initial Assessment Name: Andry Pierre [...] of Arthritis, Asthma, CHF (congestive heart failure) ([facility]), CKD (chronic kidney disease) stage 2, GFR 60-89 ml/min, Clotting disorder ([facility]), Congenital heart disease, COPD (chronic obstructive pulmonary disease) ([facility]), Depression, Emphysema of lung ([facility]), GERD (gastroesophageal reflux disease), GERD (gastroesophageal reflux disease), Gout, Headache(784.0), Hernia, Hernia, History of blood clots, History of DVT (deep vein thrombosis), Hyperlipidemia, Insomnia, Irritable bowel syndrome, Kidney stones, Lumbar degenerative disc disease, Lumbar radiculopathy, Obesity, PAM (obstructive sleep apnea), Parkinson disease, Parkinson's disease, Post traumatic stress disorder, Renal disease, Rheumatoid arthritis ([facility]), Stroke ([facility]), Stroke risk, Tracheostomy in place ([facility]), Tremors of nervous system, Type [...] the house) Transfer Assistance: Needs assistance Active Cattle Sorter: No (friends from [employer]. does not drive) Occupation: On disability [...] Within functional limits Cognition Overall Cognitive Status: [facility] Cognition Comment: pt having fluent conversation throughout [...] Learning: None Education Outcome: Verbalized understanding;Demonstrated understanding [facility] Daily Activity - Inpatient How much help [...] How much help for eating meals?: None [facility] Inpatient Daily Activity Raw Score: 20 [facility] Inpatient ADL T-Scale Score : 42.03 ADL Inpatient [facility] 0-100% Score: 38.32 ADL Inpatient [facility] G-Code Modifier : CJ Goals Short Term [...] 54 Timed Code Treatment Minutes: 48 Minutes Dina Glez S/OT LANDSCAPE ENGINEER ALL NOTES Facility/Department: [address] [place] CLINICAL BEDSIDE SWALLOW EVALUATION NAME: Andry Pierre : 1960 ADMISSION DATE: 11/29/2023 ADMITTING DIAGNOSIS: has COPD (chronic obstructive pulmonary disease) ([facility]); PAM (obstructive sleep apnea); Obesity, morbid ([facility]); Lumbar degenerative disc disease; Lumbar radiculopathy; Lumbar facet arthropathy; Osteoarthritis of both knees; Diabetic neuropathy ([facility]); Morbid obesity ([facility]); Sleep apnea, obstructive; Encounter for medication monitoring; Chronic kidney disease (CKD), stage III (moderate) ([facility]); Hyperkalemia; Fatigue; Pill rolling tremor; Muscle cramps; Acute renal failure (ARF) ([facility]); Type II or unspecified type diabetes mellitus without mention of complication, not stated as uncontrolled; Depression; Irritable bowel syndrome; Obesity; CHF (congestive heart failure) ([facility]); Parkinson disease; Tremors of nervous system; Tracheostomy in place ([facility]); Bilateral lower extremity edema; CKD (chronic kidney disease); Uncontrolled hypertension; Dysphagia; Hyperlipidemia; History of DVT (deep vein thrombosis); Congenital heart disease; Emphysema of lung ([facility]); Hernia; Stroke risk; GERD (gastroesophageal reflux disease); Asthma; Renal disease; Gout; S/P deep brain stimulator placement; Parkinsons; CKD (chronic kidney disease) stage 2, GFR 60-89 ml/min; Type II or unspecified type diabetes mellitus with renal manifestations, not stated as uncontrolled(250.40); Encounter for chronic pain management; Weight loss, intentional; Spondylarthrosis; Primary osteoarthritis of both knees; DM type 2 with diabetic peripheral neuropathy ([facility]); Need for immunization against influenza; Morbid obesity due to excess calories ([facility]); Diabetic mononeuropathy associated with diabetes mellitus due to underlying condition ([facility]); AMS (altered mental status); and Altered mental status on their problem list. Recent Chest Xray/CT of Chest: 11/28/23 No acute chest process. No acute intracranial abnormality. Stable metallic probe inserted via the left frontal approach with the tip in the left thalamic area. No obvious complications. Date of Eval: 11/30/2023 Evaluating Therapist: Janis Velazco LANDSCAPE ENGINEER Current Diet level: Current Diet : NPO [...] brain stimulator 10/2008 who initially presented to [facility] 11/24 s/p fall in bathroom with acute left hip/upper thigh and back pain (hit head, no LOC) presents with No chief complaint on file. and is admitted to the hospital for the management of AMS (altered mental status). Patient transferred from [place] after undergoing tilt table evaluation for concern for orthostasis on 11/28/2022 with history of recurrent episodes of dizziness with history of stroke, complicated history. tilt table test complicated by worsening acute symptoms of dizziness with chest pain with altered sensorium. Although tilt test unremarkable for orthostasis, patient was evaluated in ED with acute symptoms and recommended admission pending transfer to [facility] for neurology evaluation. Unfortunately with bed [...] with occasional shortness of breath While in [place] ED patient did develop symptomatic hypoglycemia with blood sugars in the 50s with symptoms of feeling funny . 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 Subsequently returned status post fall 11/24 with [...] with partial PO only Treatment Plan Requires LANDSCAPE ENGINEER Intervention: Yes Referral To: GI Recommended Diet [...] Patient Education Response: Verbalizes understanding Therapy Time [id number] Janis Velazco M.S., [facility]-LANDSCAPE ENGINEER AMALIA Kahnna 11/30/2023 1:24 PM LANDSCAPE ENGINEER ALL NOTES Facility/Department: [address] STEPDOWN Initial Speech/Language/Cognitive Assessment NAME: Andry Pierre : 1960 ADMISSION DATE: 11/29/2023 ADMITTING DIAGNOSIS: has COPD (chronic obstructive pulmonary disease) ([facility]); PAM (obstructive sleep apnea); Obesity, morbid ([facility]); Lumbar degenerative disc disease; Lumbar radiculopathy; Lumbar facet arthropathy; Osteoarthritis of both knees; Diabetic neuropathy ([facility]); Morbid obesity ([facility]); Sleep apnea, obstructive; Encounter for medication monitoring; Chronic kidney disease (CKD), stage III (moderate) ([facility]); Hyperkalemia; Fatigue; Pill rolling tremor; Muscle cramps; Acute renal failure (ARF) ([facility]); Type II or unspecified type diabetes mellitus without mention of complication, not stated as uncontrolled; Depression; Irritable bowel syndrome; Obesity; CHF (congestive heart failure) ([facility]); Parkinson disease; Tremors of nervous system; Tracheostomy in place ([facility]); Bilateral lower extremity edema; CKD (chronic kidney disease); Uncontrolled hypertension; Dysphagia; Hyperlipidemia; History of DVT (deep vein thrombosis); Congenital heart disease; Emphysema of lung ([facility]); Hernia; Stroke risk; GERD (gastroesophageal reflux disease); Asthma; Renal disease; Gout; S/P deep brain stimulator placement; Parkinsons; CKD (chronic kidney disease) stage 2, GFR 60-89 ml/min; Type II or unspecified type diabetes mellitus with renal manifestations, not stated as uncontrolled(250.40); Encounter for chronic pain management; Weight loss, intentional; Spondylarthrosis; Primary osteoarthritis of both knees; DM type 2 with diabetic peripheral neuropathy (HCC); Need for immunization against influenza; Morbid obesity due to excess calories (HCC); Diabetic mononeuropathy associated with diabetes mellitus due to underlying condition (HCC); AMS (altered mental status); and Altered mental [...] brain stimulator 10/2008 who initially presented to [facility] 11/24 s/p fall in bathroom with acute left hip/upper thigh and back pain (hit head, no LOC) presents with No chief complaint on file. and is admitted to the hospital for the management of AMS (altered mental status). Patient transferred from [place] after undergoing tilt table evaluation for concern for orthostasis on 11/28/2022 with history of recurrent episodes of dizziness with history of stroke, complicated history. tilt table test complicated by worsening acute symptoms of dizziness with chest pain with altered sensorium. Although tilt test unremarkable for orthostasis, patient was evaluated in ED with acute symptoms and recommended admission pending transfer to [facility] for neurology evaluation. Unfortunately with bed [...] with occasional shortness of breath While in [place] ED patient did develop symptomatic hypoglycemia with blood sugars in the 50s with symptoms of feeling funny . 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 Subsequently returned status post fall 11/24 with [...] week at this time. Recommendations: Recommendations Requires LANDSCAPE ENGINEER Intervention: Yes Recommendations: Modified barium swallow study [...] difficulties Social/Functional History Lives With: Spouse Active Cattle Sorter: No Occupation: Retired Objective: Oral Motor Labial: [...] reasoning word associations: 10/10 Sequencing: Task 1 3/ Immediate recall: 2/3, 3/, 0/3 Delayed recall: 0/3 3 minute delay, 0/3 7 minute delay Verbal reasoning antonyms: / Inductive reasonin/6 Verbal reasoning similarities and differences: similarities 4/4 and differences 4/4 Task insight problem solvin/3 Inductive reasoning and thought flexibility 3 reasons for... task: 26 Convergent thinkin/3 Deductive reasonin/5 Divergent naming (concrete): 3 Divergent naming (abstract): 4 Prognosis: Speech Therapy Prognosis Prognosis: Fair Prognosis Considerations: Previous Level of Function;Severity of Impairments Individuals consulted Consulted and agree with results and recommendations: Patient;RN Education: Patient Education: yes Patient Education Response: Verbalizes understanding Therapy Time: Individual Concurrent Group Co-treatment Time In 1145 Time Out 1157 Minutes 12 Jansi Velazco M.S., [facility]-LANDSCAPE ENGINEER Pharmacy Note Warfarin Consult Andry Pierre is a 63 y.o. male for whom pharmacy has been consulted to manage warfarin therapy. Consulting Physician: Dr Jamia Nur Reason for Admission: AMS Warfarin dose prior to admission: 10 MG 5 DAYS, 15 MG 2 DAYS A WEEK followed by [facility] Warfarin indication: DVT/PE Target INR range: 2.0-3.0 Past Medical History: Diagnosis Date Arthritis Asthma CHF (congestive heart failure) (HCC) CKD (chronic kidney disease) stage 2, GFR 60-89 ml/min 02/16/2014 Clotting disorder (HCC) Congenital heart disease COPD (chronic obstructive pulmonary disease) (HCC) Depression Emphysema of lung (HCC) GERD (gastroesophageal reflux disease) GERD (gastroesophageal reflux disease) Gout Headache(784.0) Hernia Hernia History of blood clots History of DVT (deep vein thrombosis) Hyperlipidemia Insomnia Irritable bowel syndrome Kidney stones Lumbar degenerative disc disease 01/25/2014 Lumbar radiculopathy 01/25/2014 Obesity PAM (obstructive sleep apnea) 11/16/2013 Parkinson disease Parkinson's disease Post traumatic stress disorder Renal disease Rheumatoid arthritis (HCC) Stroke ([facility]) 2018 Stroke risk Tracheostomy in place ([facility]) 08/22/2011 Tremors of nervous system [...] Will continue to follow. Thank you Eros Ansari, PharmD, [facility] Inpatient Clinical Pharmacist [phone] Images from the original note were not included. [facility] Office: [phone] Alberto Rice DO, Luciano Murphy DO, Humza [...] Geneva Casiano MD, Matthew Perez, DO, Tk Connor, DO, Jess Parker MD, Garett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 AM Advance Directive(s) 06/24/2019 2:04 PM Advance Directive(s) 06/24/2019 2:00 PM Advance Directive(s) 06/18/2019 12:37 PM Advance Directive(s) 07/18/2016 2:43 PM Documents on File Type Date Recorded 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 Advance Directive(s) 06/24/2019 2:00 PM [...] DATE CREATED AUTHOR AUTHOR'S ORGANIZ ATION 10/30/2021 [facility] DATE CREATED AUTHOR AUTHOR'S ORGANIZ ATION 05/31/2022 [facility] DATE CREATED AUTHOR AUTHOR'S ORGANIZ ATION 03/14/2023 [facility] DATE CREATED AUTHOR AUTHOR'S ORGANIZ ATION 08/14/2023 [facility] DATE CREATED AUTHOR AUTHOR'S ORGANIZ ATION 10/19/2023 [facility] DATE CREATED AUTHOR AUTHOR'S ORGANIZ ATION 11/10/2023 [facility] DATE CREATED AUTHOR AUTHOR'S ORGANIZ ATION 12/05/2023 [facility] DATE CREATED AUTHOR AUTHOR'S ORGANIZ ATION 12/06/2023 [facility] DATE CREATED AUTHOR AUTHOR'S ORGANIZ ATION 12/14/2023 [facility] DATE CREATED AUTHOR AUTHOR'S ORGANIZ ATION 03/07/2024 [facility] DATE CREATED AUTHOR AUTHOR'S ORGANIZ ATION 03/10/2024 [facility] EPIC Source Comments (unrecognize d section and content) In the event this informatio n is protected by the Federal Confidentiality of Alcohol and Drug Abuse Patient Records regulations: The Federal rules restrict any use of the information to criminally investigate or prosecute any alcohol or drug abuse patient.[facility] the event this information is protected by the Federal Confidentiality of Alcohol and Drug Abuse Patient Records regulations: The Federal rules restrict any use of the information to criminally investigate or prosecute any alcohol or drug abuse patient.[facility] HospitalIn the event this information is protected by the Federal Confidentiality of Alcohol and Drug Abuse Patient Records regulations: The Federal rules restrict any use of the information to criminally investigate or prosecute any alcohol or drug abuse patient.[facility] HospitalIn the event this information is protected by the Federal Confidentiality of Alcohol and Drug Abuse Patient Records regulations: The Federal rules restrict any use of the information to criminally investigate or prosecute any alcohol or drug abuse patient.[facility] HospitalIn the event this information is protected by the Federal Confidentiality of Alcohol and Drug Abuse Patient Records regulations: The Federal rules restrict any use of the information to criminally investigate or prosecute any alcohol or drug abuse patient.[facility] Hospital[facility] the event this information is protected by the Federal Confidentiality of Alcohol and Drug Abuse Patient Records regulations: The Federal rules restrict any use of the information to criminally investigate or prosecute any alcohol or drug abuse patient.[facility] HospitalIn the event this information is protected by the Federal Confidentiality of Alcohol and Drug Abuse Patient Records regulations: The Federal rules restrict any use of the information to criminally investigate or prosecute any alcohol or drug abuse patient.[facility] Hospital[facility] the event this information is protected by the Federal Confidentiality of Alcohol and Drug Abuse Patient Records regulations: The Federal rules restrict any use of the information to criminally investigate or prosecute any alcohol or drug abuse patient.[facility] Hospital[facility] the event this information is protected by the Federal Confidentiality of Alcohol and Drug Abuse Patient Records regulations: The Federal rules restrict any use of the information to criminally investigate or prosecute any alcohol or drug abuse patient.[facility] Reason for Visit (unrecogniz ed section and content) Reason Comments DBS MARIA G message Reason Comments Pre-Op Visit Reason Comments Results Reason Comments DBS problem Reason Comments New Patient Consult Specialty Diagnoses / Procedures Referred By Contac t Referred To Contact Neurology Diagnoses Weakness Procedures CONSULT TO NEUROLOGY OFFICE/OUTPATIENT NEW HIGH MDM 60-74 MINUTES Shane Parham PA-C [address] [place] [address] Referral ID Status Reason Start Date Expiration Date V isits Requested Visits Authorized [id number] Closed PCP Requested Referral 09/19/2023 09/18/2024 1 1 Specialty Diagnoses / Procedures Referred By Contac t Referred To Contact Diagnoses Syncope and collapse Procedures Tilt table Diogenes Rodriguez MD [id number] [place] [address] Referral ID Status Reason Start Date Expiration Date V isits Requested Visits Authorized [id number] Authorized 11/04/2023 11/03/2024 1 1 Specialty Diagnoses / Procedures Referred By Contac t Referred To Contact Diagnoses AMS (altered mental status) Altered mental status altered mental status [facility] [address] [place] [address] [facility] [address] [place] [address] Referral ID Status Reason Start Date Expiration Date Visits Re quested Visits Authorized [id number] 1 1 Care Teams (unrecognized sec tion and content) Drop Press Hand Relationship Specialty Start Date End Date Say Mccormick MD PCP - General Family Practice 07/15/16 Drop Press Hand Relationship Specialty Start Date End Date Say Mccormick MD [address] [place] [address] PCP - General Family Practice 07/15/16 [facility] [address] [place] [facility] [phone] Cardiology 01/21/22 Drop Press Hand Relationship Specialty Start Date End Date Say Mccormick MD [address] [place] [address] PCP - General Family Practice 07/15/16 [facility] [address] [place] [address] Cardiology 01/21/22 Drop Press Hand Relationship Specialty Start Date End Date Say Mccormick MD [address] [place] [address] PCP - General Family Practice 07/15/16 [facility] [address] [place] [address] Cardiology 01/21/22 Drop Press Hand Relationship Specialty Start Date End Date Say Mccormick MD [address] [place] [address] PCP - General Family Practice 07/15/16 [facility] [address] [place] [address] Cardiology 01/21/22 Drop Press Hand Relationship Specialty Start Date End Date Say Mccormick MD PCP - General Family Medicine 07/15/16 Saúl Lunsford MD [address] [place] [phone] Cardiology 01/21/22 Drop Press Hand Relationship Specialty Start Date End Date Say Mccormick MD PCP - General Family Medicine 07/15/16 Saúl Lunsford MD [address] [place] [address] Cardiology 01/21/22 Drop Press Hand Relationship Specialty Start Date End Date Say Mccormick MD PCP - General Family Medicine 07/15/16 Saúl Lunsford MD [address] [place] [address] Cardiology 01/21/22 Drop Press Hand Relationship Specialty Start Date End Date Say Mccormick MD [address] [id number] PCP - General Family Medicine 08/11/18 Drop Press Hand Relationship Specialty Start Date End Date Say Mccormick MD [address] [place] [address] PCP - General Family Medicine 08/11/18 Ordered [...] RN) 904 (Given - Provider: Janneth Nelson RN)2099 (Due) DULoxetine (CYMBALTA) extended release capsule 20 mg 20 mg, Oral, DAILY, First dose on Fri12/03/23 at 1445, Until Discontinued, Do not crush or break. May add contents of capsule to apple juice or apple sauce, but not chocolate. 08 (Given - Provider: Rachel Espana RN) 0934 (Given - Provider: Rachel Espana RN) 09 (Given - Provider: Janneth Nelson, NABEEL) insulin glargine (LANTUS) injection vial 2 Units [...] 0-4 Units, SubCUTAneous, NIGHTLY, First dose on 11/30/23 at 2100, Until Discontinued, If continuous tube [...] Rachel Espana RN)2009 (Given - Provider: Merissa Rice, NABEEL) 0942 (Given - Provider: Rachel Espana, NABEEL)2012 (Given - Provider: Merissa Rice, RN) 0956 (Given - Provider: Janneth Nelson RN)2100 (Due) topiramate (TOPAMAX) tablet 100 mg 100 mg, Oral, 2 TIMES DAILY, First dose on 11/30/23 at 0230, Until Discontinued, It is not recommended to crush, break, or chew immediate release tablets due to bitter taste. 0748 (Given - Provider: Rachel Espana RN)2003 (Given - Provider: Merissa Rice RN) 0934 (Given - Provider: Rachel Espana RN)2012 (Given - Provider: Merissa Rice, RN) 0906 (Given - Provider: Janneth Nelson RN)2100 (Due) valsartan (DIOVAN) tablet 160 mg 160 mg, Oral, DAILY, First dose (after last modification) on 12/01/23 at 0900, Until Discontinued, Substituted for Candesartan (ATACAND) 0748 (Given - Provider: Rachel Espana RN) 0933 (Given - Provider: Rachel Espana RN) 0906 (Given - Provider: Janneth Nelson RN) Vitamin D (CHOLECALCIFEROL) tablet 5,000 Units 5,000 Units, Oral, DAILY, First dose on 11/30/23 at 0900, Until Discontinued, Labeling may look different. 25 [id number] Units. Please double check dosages. 0748 (Given - Provider: Rachel Espana RN) 0933 (Given - Provider: Rachel Espana RN) 0906 (Given - Provider: Janneth Nelson RN) warfarin (COUMADIN) tablet 10 mg (COMPLETED) 10 mg, Oral, ONCE Warfarin, 1 dose, On 12/06/23 at 1800, Indication of Use: History of DVT/PE (indefinite), What is the patient's goal INR? 2.0 - 3.0, Review INR prior to administration. Hazardous med- See facility policy for handling/disposal 8664 (Given - Provider: Rachel Espana, RN) warfarin placeholder: dosing by pharmacy Please [...] Muscle spasms 0518 (Given - Provider: Merissa Rice RN) 0538 (Given - Provider: Merissa Rice RN)2012 (Given - Provider: Merissa Rice RN) 0535 (Given - Provider: Merissa Rice RN)1456 (Given - Provider: Janneth Nelson RN) [...] Merissa Rice RN)1109 (Given - Provider: Rachel Espana, NABEEL)1544 (Given - Provider: Rachel Espana, NABEEL)2004 (Given - Provider: Merissa Rice RN) 0032 (Given - Provider: Merissa Rice RN)0443 (Given - Provider: Merissa Rice RN)0934 (Given - Provider: Rachelsona Espana RN) morphine (PF) injection 2 mg (CANCELED) 2 mg, IntraVENous, EVERY 8 HOURS PRN, Starting on 12/07/23 at 0945, Until 12/07/23 at 2027, Pain Severe (7-10), If oral and IV narcotics ordered, use oral first and only use IV if oral is ineffective or cannot take oral. Do Not give oral and IV within 1 hour of each other unless specifically ordered. 1823 (Given - Provider: Rachel Espana, NABEEL) morphine (PF) injection 2 mg 2 mg, [...] Merissa Rice RN)0659 (Given - Provider: Merissa Rice, RN)1310 (Given - Provider: Janneth Nelson RN)1917 [...] Discontinued, Constipation, First line therapy for constipation 933 (Given - Provider: Rachel Espana, NABEEL) potassium bicarb-citric acid (EFFER-K) effervescent tablet 40 [...] BE BASED ON THE PRIMARY CLINICAL RECORDS. [facility]STATZ [facility]. provides no warranty or guarantee of the accuracy or completeness of information in this document.
--- NOTE | 2024-03-22 21:10 | PC.NURSE ---
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
--- NOTE | 2024-03-22 21:16 | CT_ITS ---
[facility] [address] [place], [place] [address] Patient Name: ANDRY PIERRE MRN: [id number] date: 1960 Sex: M Assigned Patient Location: ER Current Patient Location: ED.MAIN Accession/Order Number: [id number] Exam Date: 03/22/2024 22:50 Report Date: 03/23/2024 00:17 At the request of: BASIA HEARN Procedure: CT abdomen pelvis w con EXAM: CT abdomen pelvis w con HISTORY: RLQ pain. COMPARISON: 01/07/2023. TECHNIQUE: Enhanced helical acquisition obtained through the abdomen and the pelvis. FINDINGS: Calcified right lower lobe pulmonary granuloma. The pleural spaces are clear. 6 mm cyst within hepatic segment VIII, too small to accurately characterize. Prior cholecystectomy. The spleen, pancreas and the adrenal glands are unremarkable. Mild-moderate bilateral renal cortical scarring. Stable 6 mm cyst laterally within the mid right renal cortex, too small to accurately characterize. Mild diffuse atherosclerotic disease. No enlarged lymph nodes within the abdomen or the pelvis. The appendix is not identified. No ascites or focal intraperitoneal fluid collections. CT/CT abdomen pelvis w con IMPRESSION: 1. The appendix is not identified. No secondary signs of appendicitis. No inflammatory changes within the abdomen or the pelvis. 2. Mild-moderate bilateral renal cortical scarring. 3. Subcentimeter hepatic and right renal cysts, too small to accurately characterize. Electronically authenticated by: LEANDRA DONG Date: 03/23/2024 00:17
--- NOTE | 2024-03-22 21:34 | ED_ITS ---
HPI - Abdominal Pain General Chief Complaint: Urogenital-Male Stated Complaint: Abdominal Pain UTI Time Seen by Provider: 03/22/24 20:56 Source: patient Mode of arrival: Wheelchair Limitations: no limitations History of Present Illness HPI narrative: 63-year-old male to the emergency department with chief complaint of right lower quadrant pain. Is been ongoing for 2 to 3 weeks. He reports that he has chronic pain. He reports some mild dysuria and urgency. He denies any hematuria or kidney stones. Denies any fever, sweats, chills. Has intermittent diarrhea.He took some Keflex x 3 doses at home that he had leftover from a previous illness and this seemed to help the pain. Related Data Home Medications ?Medication ?Instructions ?Recorded ?Confirmed atorvastatin 40 mg tablet 40 mg PO .QD 04/01/23 10/08/23 candesartan 8 mg tablet 4 mg PO .QD 04/01/23 10/08/23 cetirizine 10 mg tablet 10 mg PO DAILY PRN allergy symptoms 04/01/23 10/08/23 cholecalciferol (vitamin D3) 50 50 mcg PO DAILY 04/01/23 10/08/23 mcg (2,000 unit) capsule (D3-2000) clonidine HCl 0.1 mg tablet 0.05 mg PO BID 04/01/23 10/08/23 furosemide 40 mg tablet 40 mg PO BID 04/01/23 10/08/23 montelukast 10 mg tablet 10 mg PO .QD 04/01/23 10/08/23 nifedipine 90 mg tablet,extended 90 mg PO .QD 04/01/23 10/08/23 release 24 hr oxybutynin chloride 10 mg 10 mg PO .QD 04/01/23 10/08/23 tablet,extended release 24 hr pantoprazole 40 mg tablet,delayed 40 mg PO .QD 04/01/23 10/08/23 release potassium chloride 20 mEq 20 meq PO .QD 04/01/23 10/08/23 tablet,extended release topiramate 50 mg tablet 100 mg PO Q12H 04/01/23 10/08/23 tramadol 50 mg tablet 100 mg PO Q12H PRN pain 04/01/23 10/08/23 warfarin 5 mg tablet 10 mg PO .QD 04/01/23 10/08/23 empagliflozin 10 mg tablet 10 mg PO QDAY 10/08/23 10/08/23 (Jardiance) indomethacin 50 mg capsule 50 mg PO BID 10/08/23 10/08/23 insulin degludec 100 unit/mL (3 56 unit subcut BID 10/08/23 10/08/23 mL) subcutaneous pen (Tresiba FlexTouch U-100 insulin) Previous Rx's ?Medication ?Instructions ?Recorded hydrocodone 7.5 mg-acetaminophen 1 tab PO BID PRN pain #60 tabs 11/27/23 325 mg tablet naloxone 4 mg/actuation nasal 4 mg intranasal Q2M PRN opioid 11/27/23 spray (Narcan) overdose #2 ea hydrocodone 7.5 mg-acetaminophen 1 tab PO TID PRN pain #90 tabs 12/10/23 325 mg tablet hydrocodone 7.5 mg-acetaminophen 1 tab PO Q6H PRN pain #12 tabs 03/23/24 325 mg tablet ondansetron 4 mg disintegrating 4 mg PO Q8H PRN nausea and 03/23/24 tablet vomiting 4 days #16 tabs Allergies Allergy/AdvReac Type Severity Reaction Status Date / Time diazepam [From Valium] Allergy Verified 09/22/23 10:28 gabapentin [From Neurontin] Allergy Verified 09/22/23 10:28 BETA BLOCKERS Allergy Headache Uncoded 09/22/23 10:28 Review of Systems ROS Status of ROS 10 or more systems reviewed and unremark able except as noted in history and below [facility] Medical History Acid reflux ?K21.9 - Gastro-esophageal reflux disease without esophagitis (ICD-10) Angina at rest ?I20.89 - Other forms of angina pectoris (ICD-10) CHF (congestive heart failure) ?I50.9 - Heart failure, unspecified (ICD-10) COPD (chronic obstructive pulmonary disease) ?J44.9 - Chronic obstructive pulmonary disease, unspecified (ICD-10) Emphysema lung ?J43.9 - Emphysema, unspecified (ICD-10) High cholesterol ?E78.00 - Pure hypercholesterolemia, unspecified (ICD-10) Implantable loop recorder present ?Z95.818 - Presence of other cardiac implants and grafts (ICD-10) Kidney failure ?N19 - Unspecified kidney failure (ICD-10) Palpitations ?R00.2 - Palpitations (ICD-10) Stroke ?I63.9 - Cerebral infarction, unspecified (ICD-10) Surgical History Status post emergency tracheotomy for assistance in breathing ?Z93.0 - Tracheostomy status (ICD-10) History of hydrocelectomy ?Z98.890 - Other specified postprocedural states (ICD-10) History of cardiac cath ?Z98.890 - Other specified postprocedural states (ICD-10) History of tonsillectomy ?Z90.89 - Acquired absence of other organs (ICD-10) History of sinus surgery ?Z98.890 - Other specified postprocedural states (ICD-10) History of carpal tunnel release ?Z98.890 - Other specified postprocedural states (ICD-10) H/O arthroscopic knee surgery ?Z98.890 - Other specified postprocedural states (ICD-10) History of ankle surgery ?Z98.890 - Other specified postprocedural states (ICD-10) History of Achilles tendon repair ?Z98.890 - Other specified postprocedural states (ICD-10) H/O inguinal hernia repair ?Z98.890 - Other specified postprocedural states (ICD-10) ?Z87.19 - Personal history of other diseases of the digestive system (ICD-10) Status post deep brain stimulator placement ?Z96.89 - Presence of other specified functional implants (ICD-10) Hx of cholecystectomy ?Z90.49 - Acquired absence of other specified parts of digestive tract (ICD- 10) Social History Smoking status: Never smoker Highest level of school completed/degree received: Bachelor's degree Exam Narrative Exam Narrative: VITALS: I have reviewed the triage vital signs. GENERAL: Well developed, well appearing adult in no acute distress. NEURO: Alert and oriented. Moves all extremities. Face is symmetric and expressive. EYES: PERRL. No scleral icterus or conjunctival injection. No discharge. HENT: Normocephalic, atraumatic. Hearing is grossly intact. Nares grossly patent and without discharge. Mucous membranes moist. NECK: No JVD. Patient moves neck without restriction. CARDIO: Rhythm regular. Normal rate. No murmur, rub, or gallop. Pulses equal bilaterally in the upper and lower extremity. No lower extremity edema. PULM: Lungs clear to auscultation in all weiss. No wheezes, rales, or rhonchi. No conversational dyspnea. No splinting, stridor, or accessory muscle use. GI/: Abdomen is soft. Mild right lower quadrant tenderness. No rebound or guarding. Normal active bowel sounds EXTREMITIES: Symmetric muscle bulk. No joint swelling. No clubbing, cyanosis, or deformity. SKIN: Warm and dry. Normal turgor. No rash or lesions appreciated. PSYCH: Mood, affect, and interaction is appropriate to the setting. Constitutional Vital Signs, click to edit/add: Last Vital Signs Temp 99.8 F 03/22/24 20:46 Pulse 67 03/22/24 20:46 Resp 03/22/24 20:46 BP 193/107 H 03/22/24 20:46 Pulse Ox 97 03/22/24 20:46 O2 Del Method Room Air 03/22/24 20:46 Course Vital Signs Vital signs: Vital Signs Temperature 99.8 F 03/22/24 20:46 Pulse Rate 67 03/22/24 20:46 Respiratory Rate 03/22/24 20:46 Blood Pressure 193/107 H 03/22/24 20:46 Pulse Oximetry 97 03/22/24 20:46 Oxygen Delivery Method Room Air 03/22/24 20:46 Temperature 99.8 F 03/22/24 20:46 Pulse Rate 67 03/22/24 20:46 Respiratory Rate 03/22/24 20:46 Blood Pressure 193/107 H 03/22/24 20:46 Pulse Oximetry 97 03/22/24 20:46 Oxygen Delivery Method Room Air 03/22/24 20:46 MDM - Abdominal Pain MDM Narrative Medical decision making narrative: 63-year-old male to the emergency department chief complaint of right lower quadrant abdominal pain with urinary symptoms. Status post appendectomy. Vital stable, the patient is afebrile. CT scan, basic labs ordered. Morphine, Zofran ordered for symptoms. Patient agrees with this plan. Lab work without acute findings. CT scan with incidental cyst. No acute findings on imaging. Urinalysis unremarkable. Discussed findings with the patient. He will follow-up with his PCP in the next 2 to 3 days. He reports that the hydrocodone that he had leftover from Dr. Amato prescription did help the discomfort. He does not have any more this medication. I did review his OARRS. It looks as though he had a oxycodone prescription in early February. Will prescribe a short course. Return precautions were discussed. All questions were answered. The patient was discharged home Medical Records Attestation: I reviewed the patient's medical records. Lab Data Attestation: I reviewed the patient's lab results. Labs: Lab Results 03/22/24 03/22/24 Range/Units 21:25 21:42 WBC 9.4 (4.0-11.0) 10^3/uL RBC 4.49 L (4.70-6.10) 10^6/uL Hgb 14.2 (14.0-18.0) g/dL Hct 41.3 L (42.0-54.0) % MCV 92.0 (80.0-94.0) fL MCH 31.6 (25.9-34.0) pg MCHC 34.4 (29.9-35.2) g/dL RDW 17.4 H (11.0-15.0) % Plt Count 262 (150-450) 10^3/uL MPV 10.1 (9.5-13.5) fL Neut % (Auto) 63.8 (43.0-75.0) % Lymph % (Auto) 27.6 (20.5-60.0) % Borden % (Auto) 6.5 (1.7-12.0) % Eos % (Auto) 1.2 (0.9-7.0) % Baso % (Auto) 0.5 (0.2-2.0) % Neut # (Auto) 6.0 (1.4-6.5) 10^3/uL Lymph # (Auto) 2.6 (1.2-3.8) 10^3/uL Borden # (Auto) 0.6 (0.3-0.8) 10^3/uL Eos # (Auto) 0.1 (0.0-0.7) 10^3/uL Baso # (Auto) 0.1 (0.0-0.1) 10^3/uL Abs Immat Gran (auto) 0.04 H (0.00-0.03) 10^3/uL Imm/Tot Granulo (auto) 0.4 (0.0-0.5) % Sodium 139 (136-145) mmol/L Potassium 3.3 L (3.5-5.1) mmol/L Chloride 106 (98-107) mmol/L Carbon Dioxide 24.6 (21.0-32.0) mmol/L Anion Gap 11.7 BUN 24.0 H (7.0-18.0) mg/dL Creatinine 1.85 H (0.70-1.30) mg/dL Est GFR ( Amer) 45 L (>=60) Est GFR (Non-Af Amer) 37 L (>=60) BUN/Creatinine Ratio 13.0 Glucose 126 H (74-106) mg/dL Calcium 9.0 (8.5-10.1) mg/dL Total Bilirubin 0.9 (0.2-1.0) mg/dL AST 24 (15-37) U/L ALT 25 (16-63) U/L Alkaline Phosphatase 125 H (46-116) U/L Total Protein 8.9 H (6.4-8.2) g/dL Albumin 3.6 (3.4-5.0) g/dL Globulin 5.3 g/dL Albumin/Globulin Ratio 0.7 Urine Color Lt. yellow (YELLOW) Urine Clarity Clear (CLEAR) Urine pH 5.5 (5.0-9.0) Ur Specific Comfrey 1.015 (1.005-1.025) Urine Protein Negative (NEG/TRACE) mg/dL Urine Glucose (UA) >=1000 A (NEGATIVE) mg/dL Urine Ketones Negative (NEGATIVE) mg/dL Urine Occult Blood Negative (NEGATIVE) Urine Nitrite Negative (NEGATIVE) Urine Bilirubin Negative (NEGATIVE) Urine Urobilinogen 0.2 (0.2-1.0) EU/dL Ur Leukocyte Esterase Negative (NEGATIVE) Imaging Data CT scan - abdomen: Radiologist's impression: ITS Impressions Abdomen/Pelvis CT 03/22/24 21:16 IMPRESSION: 1. The appendix is not identified. No secondary signs of appendicitis. No inflammatory changes within the abdomen or the pelvis. 2. Mild-moderate bilateral renal cortical scarring. 3. Subcentimeter hepatic and right renal cysts, too small to accurately characterize. Electronically authenticated by: LEANDRA DONG Date: 03/23/2024 00:17 Discharge Plan Discharge Stand Alone Forms: Portal Instructions Chief Complaint: Urogenital-Male Clinical Impression: Abdominal pain Patient Disposition: Home, Self-Care Time of Disposition Decision: 00:15 Condition: Good Mode of Transportation: Private Vehicle Prescriptions / Home Meds: New hydrocodone-acetaminophen 7.5-325 mg tablet 1 tab PO Q6H PRN (Reason: pain) Qty: 12 0RF ondansetron 4 mg tablet,disintegrating 4 mg PO Q8H PRN (Reason: nausea and vomiting) 4 Days Qty: 16 0RF No Action atorvastatin 40 mg tablet 40 mg PO .QD candesartan 8 mg tablet 4 mg PO .QD Rx Instructions: patient states he takes 0.5 tab but hasn't filled since 05/28 clonidine HCl 0.1 mg tablet 0.05 mg PO BID furosemide 40 mg tablet 40 mg PO BID montelukast 10 mg tablet 10 mg PO .QD nifedipine 90 mg tablet extended release 24hr 90 mg PO .QD oxybutynin chloride 10 mg tablet extended release 24hr 10 mg PO .QD pantoprazole 40 mg tablet,delayed release (DR/EC) 40 mg PO .QD potassium chloride 20 mEq tablet extended release 20 meq PO .QD topiramate 50 mg tablet 100 mg PO Q12H tramadol 50 mg tablet 100 mg PO Q12H PRN (Reason: pain) warfarin 5 mg tablet 10 mg PO .QD cetirizine 10 mg tablet 10 mg PO DAILY PRN (Reason: allergy symptoms) cholecalciferol (vitamin D3) [D3-2000] 50 mcg (2,000 unit) capsule 50 mcg PO DAILY hydrocodone-acetaminophen 7.5-325 mg tablet 1 tab PO BID PRN (Reason: pain) Qty: 60 0RF naloxone [Narcan] 4 mg/actuation spray,non-aerosol 4 mg intranasal Q2M PRN (Reason: opioid overdose) Qty: 2 1RF Rx Instructions: spray 1 dose into ONE nostril; alternate nostrils w each dose until help arrives hydrocodone-acetaminophen 7.5-325 mg tablet 1 tab PO TID PRN (Reason: pain) Qty: 90 0RF Jardiance 10 mg tablet 10 mg PO QDAY indomethacin 50 mg capsule 50 mg PO BID insulin degludec [Tresiba FlexTouch U-100] 100 unit/mL (3 mL) insulin pen 56 unit SUBCUT BID Print Language: Ukrainian Instructions: Abdominal Pain (ED) Additional Instructions: Call the office of your primary care doctor to arrange for follow-up within the above-stated timeframe. Follow-up with your primary care doctor about this ED visit. You should review your labs, imaging, and diagnoses from this ED visit with your primary care physician. There may be non-emergent findings that need further evaluation. If you were prescribed medications you should discuss possi ble side-effects and drug interactions with your pharmacist. Call 911 or go to the nearest Emergency Department if you develop any new or worsening symptoms. Follow-up with your doctor about incidental cysts visualized on the kidney and liver. Take pain medications as prescribed at the lowest possible dose for the shortest time interval possible. Dispose of medications properly. Do not take with other sedating medications. Referrals: Say Amato MD [Primary Care Provider] - As soon as possible (Repeat visit in 2 to 3 days.)
[2024-03-22] MEDS: MORPHINE SULFATE 2 MG/ML SYRINGE 4 MG IV (21:48)
[2024-03-22] MEDS: ONDANSETRON PF 4 MG/2 ML VIAL IV (21:48)
[2024-03-22 21:53] LABS: Basophils Absolute Auto 0.1 10^3/uL (0.0-0.1); Basophils Percent Auto 0.5 % (0.2-2.0); Eosinophils Absolute Auto 0.1 10^3/uL (0.0-0.7); Eosinophils Percent Auto 1.2 % (0.9-7.0); Hematocrit 41.3 % (42.0-54.0); Hemoglobin 14.2 g/dL (14.0-18.0); Immature Granulocytes Abs Auto 0.04 10^3/uL (0.00-0.03); Immature Granulocytes Pct Auto 0.4 % (0.0-0.5); Lymphocytes Absolute Auto 2.6 10^3/uL (1.2-3.8); Lymphocytes Percent Auto 27.6 % (20.5-60.0); Mean Corpuscular HGB Conc 34.4 g/dL (29.9-35.2); Mean Corpuscular Hemoglobin 31.6 pg (25.9-34.0); Mean Platelet Volume 10.1 fL (9.5-13.5); Monocytes Absolute Auto 0.6 10^3/uL (0.3-0.8); Monocytes Percent Auto 6.5 % (1.7-12.0); Neutrophils Percent Auto 63.8 % (43.0-75.0); Platelet Count 262 10^3/uL (150-450); Red Blood Count 4.49 10^6/uL (4.70-6.10); Red Cell Distribution Width 17.4 % (11.0-15.0); White Blood Count 9.4 10^3/uL (4.0-11.0)
[2024-03-22 21:53] LABS: Bilirubin Urine NEGATIVE (NEGATIVE); Blood Urine NEGATIVE (NEGATIVE); Clarity Urine CLEAR (CLEAR); Color Urine LT. YELLOW (YELLOW); Glucose Urine UA >=1000 mg/dL (NEGATIVE); Ketones Urine NEGATIVE (NEGATIVE); Leukocyte Esterase Urine NEGATIVE (NEGATIVE); Nitrite Urine NEGATIVE (NEGATIVE); Protein Urine NEGATIVE (NEG/TRACE); Specific Gravity Urine 1.015 (1.005-1.025); Urobilinogen Urine 0.2 EU/dL (0.2-1.0); pH Urine 5.5 (5.0-9.0)
[2024-03-22 22:00] LABS: Urine Microscopic Indicated NO
[2024-03-22 22:11] LABS: Alanine Aminotransferase 25 U/L (16-63); Albumin Globulin Ratio 0.7; Albumin Level 3.6 g/dL (3.4-5.0); Alkaline Phosphatase 125 U/L (46-116); Anion Gap 11.7; Aspartate Amino Transferase 24 U/L (15-37); Bilirubin Total 0.9 mg/dL (0.2-1.0); Carbon Dioxide 24.6 mmol/L (21.0-32.0); Chloride 106 mmol/L (98-107); Estimated GFR (African America 45 (>=60); Estimated GFR (Non-African Ame 37 (>=60); Globulin 5.3 g/dL; Glucose 126 mg/dL (74-106); Potassium 3.3 mmol/L (3.5-5.1); Sodium 139 mmol/L (136-145); Total Protein 8.9 g/dL (6.4-8.2)
[2024-03-23 00:25] VITALS: BP 172/98; PULSE 68; O2SAT 97
== END 2024-03-23 00:50 | disposition home or self-care (01) ==
PROVIDERS: Emergency Provider Student in an Organized Health Care Education/Training Program; PCP Family Medicine
DX: R10.9 Unspecified abdominal pain (principal)
CPT/HCPCS: 36415; 74177; 80053; 81003; 85025; 96374; 96375; 99285; J2270; J2405; Q9966

== ENCOUNTER 2024-04-05 00:54 | Outpatient (RCR) | payer MEDICARE, SELFPAY | END 2024-05-05 09:49 | disposition home or self-care (01) | LOC: MM 00:54 | PROVIDERS: PCP Family Medicine; Visit Provider Internal Medicine | DX: Z51.81 Encounter for therapeutic drug level monitoring (principal); Z79.01 Long term (current) use of anticoagulants; I82.409 Acute embolism and thrombosis of unspecified deep veins of unspecified lower extremity ==

== ENCOUNTER 2024-04-29 11:10 | Outpatient (OUT) | payer MEDICARE, MEDICAID, SELFPAY ==
--- NOTE | 2024-04-29 11:21 | XR_ITS ---
The [address] [address] Patient Name: ANDRY PIERRE MRN: [id number] date: 1960 Sex: M Assigned Patient Location: [facility] Current Patient Location: Accession/Order Number: [id number] Exam Date: 04/29/2024 11:22 Report Date: 04/30/2024 08:45 At the request of: LUIS MCCORMICK Procedure: XR lumbar spine min 4V EXAMINATION: XR lumbar spine min 4V HISTORY: Low Back Pain At Multiple Sites M54.50, Compression Fracture COMPARISON: XR lumbar spine 11/24/2023 FINDINGS: BONES: Mild to moderate degenerative facet arthropathy L3-4 through L5-S1. Height and alignment of the vertebral bodies; no fracture spondylolisthesis. DISC SPACES: No significant disc height narrowing, subluxation, or endplate abnormality. PARASPINOUS: Negative. No paraspinous abnormality is seen. OTHER: Negative. XR/XR lumbar spine min 4V IMPRESSION: 1. No appreciable acute abnormality. 2. Stable mild degenerative changes. Electronically authenticated by: ROCK AVELAR Date: 04/30/2024 08:45
--- OUTSIDE RECORDS SUMMARY | 2024-04-29 11:38 | XMS_ITS | CCD ---
Author Organization [facility] Care Team Providers Care Rodbuster Name Role Phone Say Mccormick MD Primary Care Provider [phone] Say Mccormick MD Primary Care Provider [phone] Jonn GEORGE, ab P[employer]emed Unavailable [phone] Sanjay Dooley Unavailable JESUS RUSS Attending Unavailable JESUS RUSS Admitting Unavailable SELF, REFERRED Referring Unavailable SAY MCCORMICK Primary Care Unavailable AMY REMY Surgeon Unavailable NE Procedure Practitioner Unavailab le NE Procedure Practitioner Unavailab DAVON Rivera Surgeon Unavailable DR SAY REECE Admitting Unavailable DR SAY REECE Primary Care Unavailable DR SAY REECE Consulting Unavailable DR SAY REECE Attending Unavailable VALENTINO, DR ROCK Das Consulting Unavailable PRANAV VASQUEZ Attending Unavailable PRANAV VASQUEZ Admitting Unavailable DR SAY REECE Primary Care Unavailable PRANAV VASQUEZ Consulting Unavailable NOEMÍ DEWEYIKH H Attending Unavailable JODIE HURST Primary Care Unavailable FASTAN, CARMICHAEL H Admitting Unavailable SOFYA HIDALGO Attending Unavailable SOFYA HIDALGO Admitting Unavailable DR SAY REECE Primary Care Unavailable ALISA HOLMAN Consulting Unavailable SOFYA HIDALGO Consulting Unavailable LOS BAIRES Consulting Unavailable BERRY, SOFYA Admitting Unavailable DR SAY REECE Primary Care Unavailable DR ROCK AVELAR Consulting Unavailable SOFYA HIDALGO Attending Unavailable SOFYA HIDALGO Consulting Unavailable FASTAN, CARMICHAEL H Attending Unavailable FAWVERONICA, CARMICHAEL H Admitting Unavailable HOY ., DR [...] H Admitting Unavailable DIOGENES RODRIGUEZ Attending Unavailable JENNIFER, DIOGENES Admitting Unavailable HOY ., DR SMITH Primary [...] Care Provider Jonn GEORGE, Saúl med Unavailable Marlena GEORGE, Ramon Morales Attending Unavailable SAY [...] Primary Care Unavailable OBED FLORIAN Attending Unavailable HEENA, SHANE L Referring Unavailable HOY, SAY M Primary Care Unavailable HENNIGS, SHANE L Referring Unavailable HOY, SAY M Primary Care Unavailable SHANE PARHAM L Attending Unavailable Say Mccormick MD Primary Care Provider [phone] YUDITH MARTINEZ Referring Unavailable HOY, SAY M Primary Care Unavailable DIOGENES RODRIGUEZ Referring Unavailable HOY, SAY M Primary Care Unavailable HOY, SAY M Primary Care Unavailable CHARLEE ARCE Referring Unavailable HOY, SAY M Primary Care Unavailable SEVERIANO MORENO Consulting Unavailable JACKIE RIVAS Admitting Unavailable LORI LEBLANC Attending Unavailable CHARO SLAUGHTER Consulting Unavailable MARLON BARLOW Consulting Unavailable JEFFERY CHRISTINE Consulting Unavailable HOY, SAY M Primary Care Unavailable YANCY CERVANTES Attending Unavailab le HOY, SAY M Referring Unavailable YANCY CERVANTES Referring Unavailab YANCY Dimas Referring Unavailab ARJUN Palumbo Attending Unavailable YANCY CERVANTES Attending Unavailab YANCY Dimas Attending Unavailab DIOGENES Howe Referring Unavailable DIOGENES RODRIGUEZ Referring Unavailable DIOGNEES RODRIGUEZ Attending Unavailable SURI BANDA Attending Unavailable SURI BANDA Attending Unavailable SOFYA HIDALGO Attending Unavailable DEEPA DOYLE Referring Unavailable SOFYA HIDALGO Attending Unavailable DIOGENES RODRIGUEZ Referring Unavailable LEN GOMEZ Attending Unavailable TIFFANIE LEIGH Referring Unavailable DIOGENES RODRIGUEZ Referring Unavailable DIOGENES RODRIGUEZ Referring Unavailable Allergies Allergy Classification Reported Allergen(s) Allergy Type Date of Onset Reaction(s) Facility (10 sources) beta-Blocking agent; Translations: [BETA-BLOCKERS (BETA-ADRENERGIC BLOCKING AGTS)] Drug Allergy 07-24-20 11 Itching, Other: See Comments [facility] (16 sources) diazePAM; Translations: [DIAZEPAM] Drug Allergy 03-03-20 08 Unknown [facility] (18 sources) gabapentin; Translations: [GABAPENTIN] Drug Allergy 11-25-19 09 Other: See Comments, Unknown [facility] (15 sources) hydrALAZINE; Translations: [HYDRALAZINE] Drug Allergy 05-19-20 13 Unknown [facility] (3 sources) Adrenergic Beta-Antagonists Drug allergy Unknown [employer] Other (2 sources) Adrenergic Beta-Antagonists Drug allergy (disorder) 05-29-20 16 [facility] (4 sources) diazePAM Drug Allergy 05-19-20 13 [facility] (1 source) gabapentin Drug Allergy 01-23-20 19 [facility] (1 source) gabapentin Drug Allergy 05-29-20 16 [facility] (5 sources) beta-Blocking agent Drug Allergy 07-24-20 11 Itching, Other: See Comments [facility] (2 sources) Neuromuscular Blocking Agents Propensity to adverse reactions to drug 05-19-20 13 BON [employer] NEGATED: Highlighted row has been ruled out! (2 sources) Other Propensity to adverse reactions 07-29-20 13 Nausea And Vomiting [employer] Medications Current Medications Medication Drug Class(es) Dates [...] Magnesium Replacement, Starting on 11/29/23 at 2011 [facility] Lab Replacement Action 1.4-1. 6 mg/dL [...] mEq Start: 11-24-2021 take 1 tablet by rkisten th once daily potassium chloride (KLOR-CON M) [...] 0 Active take 2 tablets by mo [facility] once daily Warfarin 5mg 5 mg 2 TABLETS orally ONCE A DAY Active Comment on above: Take 1 tablet by kristen th every 48 hours. Take 7.5mg one day, [...] powder inhaler (14 sources) beta2-Adrenergic Agonist End: 4 take 1 puff(s) by inhalation every four [...] Comment on above: Take 1 capsule by [facility] four times daily. cetirizine hydrochloride 10 mg [...] Discontinued (LIST CLEANUP) take 1 capsule by [facility] three times daily for pain indomethacin (INDOCIN) 50 mg capsule indomethacin 50 mg capsule take 1 capsule by mouth three times a day if needed for pain 0 Active Comment on above: indomethacin 50 mg c apsule take 1 capsule by mouth three times a day if needed for pain TAKE 1 CAPSULE BY MO [facility] THREE TIMES A DAY NEEDED [...] tablet by kristen two times a day. montelukast 10 mg oral tablet (15 sources) Leukotriene Receptor Antagonist Start: 11-24-19 take 10 mg by mouth once daily 10 mg, Oral, DAILY, First dose on 11/30/23 at 0900, Until Discontinued Comment on above: Take 10 mg by mouth daily at bedtime. NIFEdipine 90 mg osmotic 24 hr extended release oral tablet (15 sources) Dihydropyridine Calcium Channel Noah Start: 04-10-20 22 take 90 mg by mouth once daily [...] by mouth once daily. 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 CURRNT USE ANTICOAGULANTS] Onset: 3 Episodic Other aftercare (1 source) exterminator (current) use of insulin; Translations: [exterminator (current) use of insulin] Onset: 4 Episodic [...] Translations: [Weight loss, intentional] Onset: 5 05-15-2015 Unclassified (1 source) Painful Urination Onset: 4 Unclassified (1 source) Urinary Problem Onset: 4 Past or Other Problems Problem Classification Problem [...] Value Interpretation Reference Range Facility Office Visiton 03-26-2024 Follow-up visit [id number] Joanie Pierre 1960 M Date Provider Department Center 03/26/2024 [id number] Family History Problem Relation Age of Onset Coronary artery disease Mother Coronary artery disease Father Family Status - Relation Status Age at Mother Father Level of Service:15326 NE OFFICE/OUTPATIENT ESTABLISHED MOD MDM 30 MIN Normal [facility] URN MACROSCOPIC NURon 2023 BILIRUBIN ALE Negative Normal NEG [facility] Comment on above: Performed By: #### N UM #### [facility] ([id number]) [address] [place] [address] BLOOD/HGB ALE Negative Normal NEG [facility] Comment on above: Performed By: #### N UM #### [facility] ([id number]) [address] [place] [address], [place] [address] GLUCOSE ALE >=1000 Abnormal NEG [facility] Comment on above: Performed By: #### N UM #### [facility] ([id number]) [address] [place] [address] [place] [address] KETONES ALE Negative Normal NEG [facility] Comment on above: Performed By: #### N UM #### [facility] ([id number]) [address] [place] [address] [place] [address] LEUKOCYTE ESTERASE ALE Negative Normal NEG [facility] Comment on above: Performed By: #### N UM #### [facility] ([id number]) [address] [place] [address] [place] [address] NITRITE ALE Negative Normal NEG [facility] Comment on above: Performed By: #### N UM #### [facility] ([id number]) [address] [place] [address] PH ALE 5.0 Normal 5.0-8.5 [facility] Comment on above: Performed By: #### N UM #### [facility] ([id number]) [address] [place] [address] PROTEIN ALE Negative Normal NEG [facility] Comment on above: Performed By: #### N UM #### [facility] ([id number]) [address] [place] [address] [place] [address] SPECIFIC GRAVITY ALE 1.010 Normal 1.003-1.035 [facility] Comment on above: Performed By: #### N UM #### [facility] ([id number]) [address] [place] [address] [place] [address] UROBILINOGEN ALE 0.2 eu/dL Normal <1.1 [facility] Comment on above: Performed By: #### N UM #### [facility] ([id number]) [address] [place] [address] Office Visiton 01-29-2024 Follow-up visit [id number] Joanie Pierre 1960 M Date Provider Department Center 01/29/2024 SOFYA MUNIZ [facility] Family History Problem Relation Age of Onset Coronary artery disease Mother Coronary artery disease Father Family Status - Relation Status Age at Mother Father Level of Service:27448 NE OFFICE/OUTPATIENT ESTABLISHED MOD MDM 30 MIN Normal [facility] Office Visiton 01-13-2024 Follow-up visit [id number] Joanie Pierre Sona 1960 [facility] Provider Department Center 01/13/2024 SOFYA MUNIZ ANNITA [facility] Family History Problem Relation Age of Onset Coronary artery disease Mother Coronary artery disease Father Family Status - Relation Status Age at Mother Father Level of Service:03870 NE OFFICE/OUTPATIENT ESTABLISHED MOD MDM 30 MIN Normal [facility] Glucose,Whole Bloodon 2023 Glucose [Mass/Vol] 203 mg/dL High 75-110 [facility] Glucose [Mass/Vol] 206 mg/dL High 75-110 [facility] Glucose [Mass/Vol] 167 mg/dL High 75-110 [facility] Glucose [Mass/Vol] 137 mg/dL High 75-110 [facility] POC Glucose Fingerstickon Glucose [Mass/Vol] 203 mg/dL High 75 - 110 mg/dL [facility] Interpretation and review of laboratory results Abnormal [facility]ITAL[facility] [employer] Glucose [Mass/Vol] 206 mg/dL High 75 - 110 mg/dL [facility] Interpretation and review of laboratory results Abnormal [facility] [employer] Glucose [Mass/Vol] 167 mg/dL High 75 - 110 mg/dL [facility] [employer] Interpretation and review of laboratory results Abnormal [facility] [employer] Glucose [Mass/Vol] 137 mg/dL High 75 - 110 mg/dL [facility] [employer] Interpretation and review of laboratory results Abnormal [facility] PTon 12-08-2023 INR Coag (PPP) [Relative time] 3.3 {INR} Normal [facility] Comment on above: Result Comment: Therapeutic Range: Moderate Anticoagulant Intensity: INR = 2.0-3.0 High Anticoagulant Intensity: INR = 2.5-3.5 Performed By: #### P T #### [employer] [facility] [place], [place] [id number] Coding Director: Jasbir Montalvo MD PT Coag (PPP) [Time] 32.3 s High 11.7-14.9 [facility] Comment on above: Performed By: #### P T #### [employer] [address] [place] [address] [id number] Coding Director: Jasbir Montalvo MD Protime-INRon 12-08-2023 INR Coag (PPP) [Relative time] 3.3 {INR} [facility] Comment on above: Therapeutic Range: Moderate Anticoagulant Intensity: INR = 2.0-3.0 High Anticoagulant Intensity: INR = 2.5-3.5 Interpretation and review of laboratory results Abnormal [facility] PT Coag (PPP) [Time] 32.3 s High [facility] Glucose,Whole Bloodon 2023 Glucose [Mass/Vol] 193 mg/dL High 75-110 [facility] Glucose [Mass/Vol] 154 mg/dL High 75-110 [facility] Glucose [Mass/Vol] 145 mg/dL High -110 [facility] Glucose [Mass/Vol] 132 mg/dL [place] [id number] [facility] Hemoglobin and Hematocriton 12-07-2023 Hematocrit (Bld) [Volume fraction] 44.1 % 40.7 - 50.3 % [facility] Hemoglobin (Bld) [Mass/Vol] 14.0 g/dL 13.0 - 17.0 g/dL [facility] Hgb/Hcton 12-07-2023 Hematocrit (Bld) [Volume fraction] 44.1 % Normal 40.7-50.3 [facility] Comment on above: Performed By: #### P HO, CDP, RA, PT, SED, BMPX, FREDA, MG, LD, CRP, FEBC, B12FOL, PTT, C4, CCPAB, FERI, IOCAL, CORTI, CK, C3, REJEC #### [employer] [facility] [place] [address] Coding Director: Jasbir Montalvo MD Hemoglobin (Bld) [Mass/Vol] 14.0 g/dL Normal 13.0-17.0 [facility] Comment on above: Performed By: #### P HO, CDP, RA, PT, SED, BMPX, FREDA, MG, LD, CRP, FEBC, B12FOL, PTT, C4, CCPAB, FERI, IOCAL, CORTI, CK, C3, REJEC #### [employer] [address] [place] [id number] Coding Director: Jasbir Montalvo MD No Panel Informationon 12-06 [facility] POC Glucose Fingerstickon Glucose [Mass/Vol] 193 mg/dL High 75 - 110 mg/dL [facility] Interpretation and review of laboratory results Abnormal [facility] Glucose [Mass/Vol] 154 mg/dL High 75 - 110 mg/dL [facility] Interpretation and review of laboratory results Abnormal [facility] Glucose [Mass/Vol] 145 mg/dL High 75 - 110 mg/dL [facility] Interpretation and review of laboratory results Abnormal [facility] Glucose [Mass/Vol] 132 mg/dL High 75 - 110 mg/dL [facility] Interpretation and review of laboratory results Abnormal [facility] PTon 12-07-2023 INR Coag (PPP) [Relative time] 3.2 {INR} Normal [facility] Comment on above: Result Comment: Therapeutic Range: Moderate Anticoagulant Intensity: INR = 2.0-3.0 High Anticoagulant Intensity: INR = 2.5-3.5 Performed By: #### P HO, CDP, RA, PT, SED, BMPX, FREDA, MG, LD, CRP, FEBC, B12FOL, PTT, C4, CCPAB, FERI, IOCAL, CORTI, CK, C3, REJEC #### [employer] [address] [place] [id number] Coding Director: Jasbir Montalvo MD PT Coag (PPP) [Time] 32.1 s High 11.7-14.9 [facility] Comment on above: Performed By: #### P HO, CDP, RA, PT, SED, BMPX, FREDA, MG, LD, CRP, FEBC, B12FOL, PTT, C4, CCPAB, FERI, IOCAL, CORTI, CK, C3, REJEC #### [employer] [address] [place] [address] [id number] Coding Director: Jasbir Montalvo MD Platelet Counton 12-07-2023 Platelets (Bld) [#/Vol] 252 10*3/uL Normal 138-453 [facility] Comment on above: Performed By: #### P HO, CDP, RA, PT, SED, BMPX, FREDA, MG, LD, CRP, FEBC, B12FOL, PTT, C4, CCPAB, FERI, IOCAL, CORTI, CK, C3, REJEC #### [facility] [employer] [address] [place] [address] [id number] Coding Director: Jasbir Montalvo MD Platelets (Bld) [#/Vol] 252 10*3/uL [facility]ITALFortress[facility] Protime-INRon 12-07-2023 INR Coag (PPP) [Relative time] 3.2 {INR} [facility] Comment on above: Therapeutic Range: Moderate Anticoagulant Intensity: INR = 2.0-3.0 High Anticoagulant Intensity: INR = 2.5-3.5 Interpretation and review of laboratory results Abnormal [facility] [employer] PT Coag (PPP) [Time] 32.1 s High [facility] [employer] [facility] [employer] Glucose,Whole Bloodon 2023 Glucose [Mass/Vol] 155 mg/dL High 75-110 [facility] Glucose [Mass/Vol] 190 mg/dL High 75-110 [facility] Glucose [Mass/Vol] 176 mg/dL High 75-110 [facility] Glucose [Mass/Vol] 119 mg/dL High 75-110 [facility] POC Glucose Fingerstickon Glucose [Mass/Vol] 155 mg/dL High 75 - 110 mg/dL [facility] Interpretation and review of laboratory results Abnormal [facility] Glucose [Mass/Vol] 190 mg/dL High 75 - 110 mg/dL [facility] Interpretation and review of laboratory results Abnormal [facility] Glucose [Mass/Vol] 176 mg/dL High 75 - 110 mg/dL [facility] Interpretation and review of laboratory results Abnormal [facility] Glucose [Mass/Vol] 119 mg/dL High 75 - 110 mg/dL [facility] Interpretation and review of laboratory results Abnormal [facility] PTon 12-06-2023 INR Coag (PPP) [Relative time] 2.7 {INR} Normal [facility] Comment on above: Result Comment: Therapeutic Range: Moderate Anticoagulant Intensity: INR = 2.0-3.0 High Anticoagulant Intensity: INR = 2.5-3.5 Performed By: #### P HO, CDP, RA, PT, SED, BMPX, FREDA, MG, LD, CRP, FEBC, B12FOL, PTT, C4, CCPAB, FERI, IOCAL, CORTI, CK, C3, REJEC #### [employer] [address] [place] [id number] Coding Director: Jasbir Montalvo MD PT Coag (PPP) [Time] 28.0 s High 11.7-14.9 [facility] Comment on above: Performed By: #### P HO, CDP, RA, PT, SED, BMPX, FREDA, MG, LD, CRP, FEBC, B12FOL, PTT, C4, CCPAB, FERI, IOCAL, CORTI, CK, C3, REJEC #### [employer] [address] [place] [id number] Coding Director: Jasbir Montalvo MD Protime-INRon 12-06-2023 INR Coag (PPP) [Relative time] 2.7 {INR} [facility] Comment on above: Therapeutic Range: Moderate Anticoagulant Intensity: INR = 2.0-3.0 High Anticoagulant Intensity: INR = 2.5-3.5 Interpretation and review of laboratory results Abnormal [facility] PT Coag (PPP) [Time] 28.0 s High [facility] XR FOOT RIGHT (2 VIEWS)on XR [...] Christian Baldwin MD 12/06/23 Final result Normal [facility] XR Foot - right 2 Viewson 1. No fracture or dislocation. 2. Mild osteoarthritic changes. 3. Diffuse soft tissue swelling. [facility] EXAMINATION: TWO XRAY VIEWS OF [...] diffuse soft tissue swelling of the foot. [facility] Christian Baldwin MD - 12/06/2023 [...] osteoarthritic changes. 3. Diffuse soft tissue swelling. [facility] [employer] XR Foot - right 2 ViewsOrder ed By: Christian Baldwin on 12-06-2023 [facility] [employer] Work Phone: Glucose,Whole Bloodon 2023 Glucose [Mass/Vol] 160 mg/dL High 75-110 [facility] Glucose [Mass/Vol] 137 mg/dL High 75-110 [facility] Glucose [Mass/Vol] 189 mg/dL High 75-110 [facility] Glucose [Mass/Vol] 131 mg/dL High 75-110 [facility] Hemoglobin and Hematocriton 12-05-2023 Hematocrit (Bld) [Volume fraction] 42.9 % 40.7 - 50.3 % [facility] Hemoglobin (Bld) [Mass/Vol] 13.1 g/dL 13.0 - 17.0 g/dL [facility] Hgb/Hcton 12-05-2023 Hematocrit (Bld) [Volume fraction] 42.9 % Normal 40.7-50.3 [facility] Comment on above: Performed By: #### P HO, CDP, RA, PT, SED, BMPX, FREDA, MG, LD, CRP, FEBC, B12FOL, PTT, C4, CCPAB, FERI, IOCAL, CORTI, CK, C3, REJEC #### [employer] [address] [place] [id number] Coding Director: Jasbir Montalvo MD Hemoglobin (Bld) [Mass/Vol] 13.1 g/dL Normal 13.0-17.0 [facility] Comment on above: Performed By: #### P HO, CDP, RA, PT, SED, BMPX, FREDA, MG, LD, CRP, FEBC, B12FOL, PTT, C4, CCPAB, FERI, IOCAL, CORTI, CK, C3, REJEC #### [employer] [address] [place] [id number] Coding Director: Jasbir Montalvo MD No Panel Informationon 12-04 [facility] [employer] POC Glucose Fingerstickon Glucose [Mass/Vol] 160 mg/dL High 75 - 110 mg/dL [facility] [employer] Interpretation and review of laboratory results Abnormal [facility] Glucose [Mass/Vol] 137 mg/dL High 75 - 110 mg/dL [facility] Interpretation and review of laboratory results Abnormal [facility] Glucose [Mass/Vol] 189 mg/dL High 75 - 110 mg/dL [facility] Interpretation and review of laboratory results Abnormal [facility] [employer] Glucose [Mass/Vol] 131 mg/dL High 75 - 110 mg/dL [facility] [employer] Interpretation and review of laboratory results Abnormal [facility] PTon 12-05-2023 INR Coag (PPP) [Relative time] 2.6 {INR} Normal [facility] Comment on above: Result Comment: Therapeutic Range: Moderate Anticoagulant Intensity: INR = 2.0-3.0 High Anticoagulant Intensity: INR = 2.5-3.5 Performed By: #### P HO, CDP, RA, PT, SED, BMPX, FREDA, MG, LD, CRP, FEBC, B12FOL, PTT, C4, CCPAB, FERI, IOCAL, CORTI, CK, C3, REJEC #### [employer] [address] [place] [id number] Coding Director: Jasbir Montalvo MD PT Coag (PPP) [Time] 26.8 s High 11.7-14.9 [facility] Comment on above: Performed By: #### P HO, CDP, RA, PT, SED, BMPX, FREDA, MG, LD, CRP, FEBC, B12FOL, PTT, C4, CCPAB, FERI, IOCAL, CORTI, CK, C3, REJEC #### [employer] [facility] [place], [place] [id number] Coding Director: Jasbir Montalvo MD Platelet Counton 12-05-2023 Platelets (Bld) [#/Vol] 194 10*3/uL Normal 138-453 [facility] Comment on above: Performed By: #### P HO, CDP, RA, PT, SED, BMPX, FREDA, MG, LD, CRP, FEBC, B12FOL, PTT, C4, CCPAB, FERI, IOCAL, CORTI, CK, C3, REJEC #### [employer] [facility] [place] [address] Coding Director: Jasbir Montalvo MD Platelets (Bld) [#/Vol] 194 10*3/uL [facility] Protime-INRon 12-05-2023 INR Coag (PPP) [Relative time] 2.6 {INR} [facility] [employer] Comment on above: Therapeutic Range: Moderate Anticoagulant Intensity: INR = 2.0-3.0 High Anticoagulant Intensity: INR = 2.5-3.5 Interpretation and review of laboratory results Abnormal [facility] [employer] PT Coag (PPP) [Time] 26.8 s High [facility] [employer] XR Foot - right 2 Viewson Radiology Study observation (narrative) [facility] Glucose,Whole Bloodon 2023 Glucose [Mass/Vol] 181 mg/dL High 75-110 [facility] Glucose [Mass/Vol] 194 mg/dL High 75-110 [facility] Glucose [Mass/Vol] 184 mg/dL High 75-110 [facility] Glucose [Mass/Vol] 120 mg/dL High 75-110 [facility] Glucose [Mass/Vol] 161 mg/dL High 75-110 [facility] POC Glucose Fingerstickon Glucose [Mass/Vol] 181 mg/dL High 75 - 110 mg/dL [facility] [employer] Interpretation and review of laboratory results Abnormal [facility] Glucose [Mass/Vol] 194 mg/dL High 75 - 110 mg/dL [facility] Interpretation and review of laboratory results Abnormal [facility] Glucose [Mass/Vol] 184 mg/dL High 75 - 110 mg/dL [facility] Interpretation and review of laboratory results Abnormal [facility] Glucose [Mass/Vol] 120 mg/dL High 75 - 110 mg/dL [facility] Interpretation and review of laboratory results Abnormal [facility] Glucose [Mass/Vol] 161 mg/dL High 75 - 110 mg/dL [facility] Interpretation and review of laboratory results Abnormal [facility] PTon 12-04-2023 INR Coag (PPP) [Relative time] 3.0 {INR} Normal [facility] Comment on above: Result Comment: Therapeutic Range: Moderate Anticoagulant Intensity: INR = 2.0-3.0 High Anticoagulant Intensity: INR = 2.5-3.5 Performed By: #### P HO, CDP, RA, PT, SED, BMPX, FREDA, MG, LD, CRP, FEBC, B12FOL, PTT, C4, CCPAB, FERI, IOCAL, CORTI, CK, C3, REJEC #### [facility] [employer] [address] [place] [id number] Coding Director: Jasbir Montalvo MD PT Coag (PPP) [Time] 30.5 s High 11.7-14.9 [facility] Comment on above: Performed By: #### P HO, CDP, RA, PT, SED, BMPX, FREDA, MG, LD, CRP, FEBC, B12FOL, PTT, C4, CCPAB, FERI, IOCAL, CORTI, CK, C3, REJEC #### [facility] [employer] [address] [place] [id number] Coding Director: Jasbir Montalvo MD Protime-INRon 12-04-2023 INR Coag (PPP) [Relative time] 3.0 {INR} [employer] Comment on above: Therapeutic Range: Moderate Anticoagulant Intensity: INR = 2.0-3.0 High Anticoagulant Intensity: INR = 2.5-3.5 Interpretation and review of laboratory results Abnormal [employer] PT Coag (PPP) [Time] 30.5 s High [facility] [facility] EKG 12 LeadOrdered By: Cesar Jean on 12-03-2023 Atrial Rate 67 BPM [employer] [facility] Work Phone: P Kincaid 78 degrees [employer]clude [facility] [employer] [facility] Work Phone: P-R Interval 148 ms [facility] Work Phone: Q-T Interval 404 ms [facility] Work Phone: QRS Duration 70 ms [employer] [facility] [facility] Work Phone: QTc Calculation (Bazett) 426 ms [employer] [employer] Work Phone: R Kincaid -47 degrees [employer] Work Phone: T Kincaid 100 degrees [employer] Work Phone: Ventricular Rate 67 BPM [facility] [employer] 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 , age undetermined Abnormal ECG No previous ECGs available [facility] Atrial Rate 66 BPM [facility] P Kincaid 111 degrees [facility] P-R Interval 128 ms [facility] Q-T Interval 440 ms [facility] QRS Duration 94 ms [facility] QTc Calculation (Bazett) 461 ms [facility] R Kincaid -48 degrees [facility] T Kincaid 12 degrees [facility] Ventricular Rate 66 BPM [facility] Normal sinus rhythm Left anterior fascicular block Anterolateral infarct (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) Abnormal ECG When compared with ECG of 01-DEC-2023 15:42, QRS duration has increased ST no longer depressed in Anterolateral leads Lori Vasquez MD - 12/03/2023 Normal sinus rhythm Left anterior fascicular block Anterolateral infarct (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) Abnormal ECG When compared with ECG of 01-DEC-2023 15:42, QRS duration has increased ST no longer depressed in Anterolateral leads [facility] [employer] [facility] [employer] Glucose,Whole Bloodon 2023 Glucose [Mass/Vol] 232 mg/dL High 75-110 [facility] Glucose [Mass/Vol] 174 mg/dL High 75-110 [facility] Glucose [Mass/Vol] 176 mg/dL High 75-110 [facility] Glucose [Mass/Vol] 83 mg/dL Normal 75-110 [facility] POC Glucose Fingerstickon Glucose [Mass/Vol] 232 mg/dL High 75 - 110 mg/dL [facility] [employer] Interpretation and review of laboratory results Abnormal [facility] [employer] [facility] [employer] Glucose [Mass/Vol] 174 mg/dL High 75 - 110 mg/dL [facility] [employer] Interpretation and review of laboratory results Abnormal [facility] [employer] [facility] [employer] Glucose [Mass/Vol] 176 mg/dL High 75 - 110 mg/dL [facility] Albumatic [employer] Interpretation and review of laboratory results Abnormal [facility] Glucose [Mass/Vol] 83 mg/dL 75 - 110 mg/dL [facility] [employer] [facility] [employer] PTon 12-03-2023 INR Coag (PPP) [Relative time] 3.3 {INR} Normal [facility] Comment on above: Result Comment: Therapeutic Range: Moderate Anticoagulant Intensity: INR = 2.0-3.0 High Anticoagulant Intensity: INR = 2.5-3.5 Performed By: #### P HO, CDP, RA, PT, SED, BMPX, FREDA, MG, LD, CRP, FEBC, B12FOL, PTT, C4, CCPAB, FERI, IOCAL, CORTI, CK, C3, REJEC #### [facility] [employer] [address] [place] [id number] Coding Director: Jasbir Montalvo MD PT Coag (PPP) [Time] 32.2 s High 11.7-14.9 [facility] Comment on above: Performed By: #### P HO, CDP, RA, PT, SED, BMPX, FREDA, MG, LD, CRP, FEBC, B12FOL, PTT, C4, CCPAB, FERI, IOCAL, CORTI, CK, C3, REJEC #### [address] [address] Coding Director: Jasbir Montalvo MD Protime-INRon 12-03-2023 INR Coag (PPP) [Relative time] 3.3 {INR} [facility] Comment on above: Therapeutic Range: Moderate Anticoagulant Intensity: INR = 2.0-3.0 High Anticoagulant Intensity: INR = 2.5-3.5 Interpretation and review of laboratory results Abnormal [facility] PT Coag (PPP) [Time] 32.2 s High [facility] Basic Metab w/rfx MGon 12-02 Anion gap [Moles/Vol] 9 mmol/L Normal 9-17 [facility] Comment on above: Performed By: #### P HO, CDP, RA, PT, SED, BMPX, FREDA, MG, LD, CRP, FEBC, B12FOL, PTT, C4, CCPAB, FERI, IOCAL, CORTI, CK, C3, REJEC #### [address] [address] Coding Director: Jasbir Montalvo MD Calcium [Mass/Vol] 8.8 mg/dL Normal 8.6-10.4 [facility] Comment on above: Performed By: #### P HO, CDP, RA, PT, SED, BMPX, FREDA, MG, LD, CRP, FEBC, B12FOL, PTT, C4, CCPAB, FERI, IOCAL, CORTI, CK, C3, REJEC #### [address] [address] Coding Director: Jasbir Montalvo MD Chloride [Moles/Vol] 109 mmol/L High 98-107 [facility] Comment on above: Performed By: #### P HO, CDP, RA, PT, SED, BMPX, FREDA, MG, LD, CRP, FEBC, B12FOL, PTT, C4, CCPAB, FERI, IOCAL, CORTI, CK, C3, REJEC #### [address] [address] Coding Director: Jasbir Montalvo MD CO2 [Moles/Vol] 22 mmol/L Normal 20-31 [facility] Comment on above: Performed By: #### P HO, CDP, RA, PT, SED, BMPX, FREDA, MG, LD, CRP, FEBC, B12FOL, PTT, C4, CCPAB, FERI, IOCAL, CORTI, CK, C3, REJEC #### [address] [address] Coding Director: Jasbir Montalvo MD Creatinine [Mass/Vol] 1.5 mg/dL High 0.7-1.2 [facility] Comment on above: Performed By: #### P HO, CDP, RA, PT, SED, BMPX, FREDA, MG, LD, CRP, FEBC, B12FOL, PTT, C4, CCPAB, FERI, IOCAL, CORTI, CK, C3, REJEC #### [address] [address] Coding Director: Jasbir Montalvo MD GFR/1.73 sq M.predicted among non-blacks MDRD (S/P/Bld) [Vol rate/Area] 52 mL/min/{1.73_m2} Low >60 [facility] Comment on above: Result Comment: These [...] FERI, IOCAL, CORTI, CK, C3, REJEC #### [employer] [address] [place] [id number] Coding Director: Jasbir Montalvo MD Glucose [Mass/Vol] 165 mg/dL High 70-99 [facility] Comment on above: Performed By: #### P HO, CDP, RA, PT, SED, BMPX, FREDA, MG, LD, CRP, FEBC, B12FOL, PTT, C4, CCPAB, FERI, IOCAL, CORTI, CK, C3, REJEC #### [employer] [address] [place] [address] Coding Director: Jasbir Montalvo MD Potassium [Moles/Vol] 3.7 mmol/L Normal 3.7-5.3 [facility] Comment on above: Performed By: #### P HO, CDP, RA, PT, SED, BMPX, FREDA, MG, LD, CRP, FEBC, B12FOL, PTT, C4, CCPAB, FERI, IOCAL, CORTI, CK, C3, REJEC #### [employer] [address] [place] [address] Coding Director: Jasbir Montalvo MD Sodium [Moles/Vol] 140 mmol/L Normal 135-144 [facility] Comment on above: Performed By: #### P HO, CDP, RA, PT, SED, BMPX, FREDA, MG, LD, CRP, FEBC, B12FOL, PTT, C4, CCPAB, FERI, IOCAL, CORTI, CK, C3, REJEC #### [employer] [facility] [place] [address] Coding Director: Jasbir Montalvo MD Urea nitrogen [Mass/Vol] 36 mg/dL High 8-23 [facility] Comment on above: Performed By: #### P HO, CDP, RA, PT, SED, BMPX, FREDA, MG, LD, CRP, FEBC, B12FOL, PTT, C4, CCPAB, FERI, IOCAL, CORTI, CK, C3, REJEC #### [employer] [address] [place] [address] Coding Director: Jasbir Montalvo MD Basic Metabolic Panel w/ Ref sarah to MGon 12-02-2023 Anion gap [Moles/Vol] 9 mmol/L 9 - 17 mmol/L [facility] Calcium [Mass/Vol] 8.8 mg/dL 8.6 - 10. 4 mg/dL [facility] [employer] Chloride [Moles/Vol] 109 mmol/L High 98 - 107 mmol/L [facility] CO2 [Moles/Vol] 22 mmol/L 20 - 31 mmol/L [facility] Creatinine [Mass/Vol] 1.5 mg/dL High 0.7 - 1.2 mg/dL [facility] GFR/1.73 sq M.predicted MDRD (S/P/Bld) [Vol rate/Area] 52 mL/min/{1.73_m2} Low - PINF [facility] Comment on above: These results are not [...] 165 mg/dL High 70 - 99 mg/dL [facility] [employer] Interpretation and review of laboratory results Abnormal [facility] Potassium [Moles/Vol] 3.7 mmol/L 3.7 - 5.3 mmol/L [facility] Sodium [Moles/Vol] 140 mmol/L 135 - 144 mmol/L [facility] Urea nitrogen [Mass/Vol] 36 mg/dL High 8 - 23 mg/dL [facility] CBC with Auto Differentialon 12-02-2023 Basophils (Bld) [#/Vol] 0.08 10*3/uL [facility] Basophils/100 WBC (Bld) 1 % 0 - 2 % [facility] Eosinophils (Bld) [#/Vol] 0.43 10*3/uL [facility] Eosinophils/100 WBC (Bld) 4 % 1 - 4 % [facility] Erythrocyte distribution width (RBC) [Ratio] 14.2 % 11.8 - 14.4 % [facility] Hematocrit (Bld) [Volume fraction] 46.4 % 40.7 - 50.3 % [facility] Hemoglobin (Bld) [Mass/Vol] 14.4 g/dL 13.0 - 17.0 g/dL [facility] Immature granulocytes (Bld) [#/Vol] 0.03 10*3/uL [facility] Immature granulocytes/100 WBC (Bld) 0 % 0 [facility] Lymphocytes/100 WBC (Bld) 29 % 24 - 43 % [facility] Lymphocytes/100 WBC (Bld) 3.23 % [facility] MCH (RBC) [Entitic mass] 31.2 pg 25.2 - 33.5 pg [facility] MCHC (RBC) [Mass/Vol] 31.0 g/dL 28.4 - 34.8 g/dL [facility] MCV (RBC) [Entitic vol] 100.7 fL 82.6 - 102.9 fL [facility] Monocytes/100 WBC (Bld) 8 % 3 - 12 % [facility] Monocytes/100 WBC (Bld) 0.93 % [facility] Neutrophils/100 WBC (Bld) 58 % 36 - 65 % [facility] Nucleated RBC/100 WBC (Bld) [Ratio] 0.0 % 0.0 per 100 WBC [facility] [employer] Platelet mean volume (Bld) [Entitic vol] 10.3 fL 8.1 - 13.5 fL [facility] [employer] Platelets (Bld) [#/Vol] 230 10*3/uL [facility] [employer] RBC (Bld) [#/Vol] 4.61 10*6/uL 4.21 - 5.7 7 m/uL [facility] [employer] Segmented neutrophils/100 WBC (Bld) 6.39 % [facility] [employer] WBC other (Bld) [#/Vol] 11.1 [facility] [employer] CBC with Diffon 12-02-2023 Abs. Basophil 0.08 k/uL Normal 0.00-0.20 [facility] Comment on above: Performed By: #### P HO, CDP, RA, PT, SED, BMPX, FREDA, MG, LD, CRP, FEBC, B12FOL, PTT, C4, CCPAB, FERI, IOCAL, CORTI, CK, C3, REJEC #### [facility] [employer] [address] [place] [id number] Coding Director: Jasbir Montalvo MD Abs.Imm.Granulocyte 0.03 k/uL Normal 0.00-0.30 [facility] Comment on above: Performed By: #### P HO, CDP, RA, PT, SED, BMPX, FREDA, MG, LD, CRP, FEBC, B12FOL, PTT, C4, CCPAB, FERI, IOCAL, CORTI, CK, C3, REJEC #### [facility] [employer] [address] [place] [address] Coding Director: Jasbir Montalvo MD Abs.Neutrophil (Seg) 6.39 k/uL Normal 1.50-8.10 [facility] Comment on above: Performed By: #### P HO, CDP, RA, PT, SED, BMPX, FREDA, MG, LD, CRP, FEBC, B12FOL, PTT, C4, CCPAB, FERI, IOCAL, CORTI, CK, C3, REJEC #### [address] [address] Coding Director: Jasbir Montalvo MD Basophils/100 WBC (Bld) 1 % Normal 0-2 [facility] Comment on above: Performed By: #### P HO, CDP, RA, PT, SED, BMPX, FREDA, MG, LD, CRP, FEBC, B12FOL, PTT, C4, CCPAB, FERI, IOCAL, CORTI, CK, C3, REJEC #### [address] [id number] Coding Director: Jasbir Montalvo MD Eosinophils (Bld) [#/Vol] 0.43 10*3/uL Normal 0.00-0.44 [facility] Comment on above: Performed By: #### P HO, CDP, RA, PT, SED, BMPX, FREDA, MG, LD, CRP, FEBC, B12FOL, PTT, C4, CCPAB, FERI, IOCAL, CORTI, CK, C3, REJEC #### [address] [address] Coding Director: Jasbir Montalvo MD Eosinophils/100 WBC (Bld) 4 % Normal 1-4 [facility] Comment on above: Performed By: #### P HO, CDP, RA, PT, SED, BMPX, FREDA, MG, LD, CRP, FEBC, B12FOL, PTT, C4, CCPAB, FERI, IOCAL, CORTI, CK, C3, REJEC #### [address] [id number] Coding Director: Jasbir Montalvo MD Erythrocyte distribution width (RBC) [Ratio] 14.2 % Normal 11.8-14.4 [facility] Comment on above: Performed By: #### P HO, CDP, RA, PT, SED, BMPX, FREDA, MG, LD, CRP, FEBC, B12FOL, PTT, C4, CCPAB, FERI, IOCAL, CORTI, CK, C3, REJEC #### [address] [id number] Coding Director: Jasbir Montalvo MD Hematocrit (Bld) [Volume fraction] 46.4 % Normal 40.7-50.3 [facility] Comment on above: Performed By: #### P HO, CDP, RA, PT, SED, BMPX, FREDA, MG, LD, CRP, FEBC, B12FOL, PTT, C4, CCPAB, FERI, IOCAL, CORTI, CK, C3, REJEC #### [address] [id number] Coding Director: Jasbir Montalvo MD Hemoglobin (Bld) [Mass/Vol] 14.4 g/dL Normal 13.0-17.0 [facility] Comment on above: Performed By: #### P HO, CDP, RA, PT, SED, BMPX, FREDA, MG, LD, CRP, FEBC, B12FOL, PTT, C4, CCPAB, FERI, IOCAL, CORTI, CK, C3, REJEC #### [address] [address] Coding Director: Jasbir Montalvo MD Immature granulocytes/100 WBC (Bld) 0 % Normal 0 [facility] Comment on above: Performed By: #### P HO, CDP, RA, PT, SED, BMPX, FREDA, MG, LD, CRP, FEBC, B12FOL, PTT, C4, CCPAB, FERI, IOCAL, CORTI, CK, C3, REJEC #### [address] [id number] Coding Director: Jasbir Montalvo MD Lymphocytes (Bld) [#/Vol] 3.23 10*3/uL Normal 1.10-3.70 [facility] Comment on above: Performed By: #### P HO, CDP, RA, PT, SED, BMPX, FREDA, MG, LD, CRP, FEBC, B12FOL, PTT, C4, CCPAB, FERI, IOCAL, CORTI, CK, C3, REJEC #### [address] [address] Coding Director: Jasbir Montalvo MD Lymphocytes/100 WBC (Bld) 29 % Normal 24-43 [facility] Comment on above: Performed By: #### P HO, CDP, RA, PT, SED, BMPX, FREDA, MG, LD, CRP, FEBC, B12FOL, PTT, C4, CCPAB, FERI, IOCAL, CORTI, CK, C3, REJEC #### [address] [id number] Coding Director: Jasbir Montalvo MD MCH (RBC) [Entitic mass] 31.2 pg Normal 25.2-33.5 [facility] Comment on above: Performed By: #### P HO, CDP, RA, PT, SED, BMPX, FREDA, MG, LD, CRP, FEBC, B12FOL, PTT, C4, CCPAB, FERI, IOCAL, CORTI, CK, C3, REJEC #### [address] [address] Coding Director: Jasbir Montalvo MD MCHC (RBC) [Mass/Vol] 31.0 g/dL Normal 28.4-34.8 [facility] Comment on above: Performed By: #### P HO, CDP, RA, PT, SED, BMPX, FREDA, MG, LD, CRP, FEBC, B12FOL, PTT, C4, CCPAB, FERI, IOCAL, CORTI, CK, C3, REJEC #### [address] [address] Coding Director: Jasbir Montalvo MD MCV (RBC) [Entitic vol] 100.7 fL Normal 82.6-102.9 [facility] Comment on above: Performed By: #### P HO, CDP, RA, PT, SED, BMPX, FREDA, MG, LD, CRP, FEBC, B12FOL, PTT, C4, CCPAB, FERI, IOCAL, CORTI, CK, C3, REJEC #### [address] [address] Coding Director: Jasbir Montalvo MD Monocytes (Bld) [#/Vol] 0.93 10*3/uL Normal 0.10-1.20 [facility] Comment on above: Performed By: #### P HO, CDP, RA, PT, SED, BMPX, FREDA, MG, LD, CRP, FEBC, B12FOL, PTT, C4, CCPAB, FERI, IOCAL, CORTI, CK, C3, REJEC #### [address] [address] Coding Director: Jasbir Montalvo MD Monocytes/100 WBC (Bld) 8 % Normal 3-12 [facility] Comment on above: Performed By: #### P HO, CDP, RA, PT, SED, BMPX, FREDA, MG, LD, CRP, FEBC, B12FOL, PTT, C4, CCPAB, FERI, IOCAL, CORTI, CK, C3, REJEC #### [address] [address] Coding Director: Jasbir Montalvo MD Neutrophil (Seg) 58 % Normal 36-65 [facility] Comment on above: Performed By: #### P HO, CDP, RA, PT, SED, BMPX, FREDA, MG, LD, CRP, FEBC, B12FOL, PTT, C4, CCPAB, FERI, IOCAL, CORTI, CK, C3, REJEC #### [address] [address] Coding Director: Jasbir Montalvo MD NRBC Automated 0.0 per 100 WBC Normal 0.0 [facility] Comment on above: Performed By: #### P HO, CDP, RA, PT, SED, BMPX, FREDA, MG, LD, CRP, FEBC, B12FOL, PTT, C4, CCPAB, FERI, IOCAL, CORTI, CK, C3, REJEC #### [address] [id number] Coding Director: Jasbir Montalvo MD Platelet mean volume (Bld) [Entitic vol] 10.3 fL Normal 8.1-13.5 [facility] Comment on above: Performed By: #### P HO, CDP, RA, PT, SED, BMPX, FREDA, MG, LD, CRP, FEBC, B12FOL, PTT, C4, CCPAB, FERI, IOCAL, CORTI, CK, C3, REJEC #### [address] [id number] Coding Director: Jasbir Montalvo MD Platelets (Bld) [#/Vol] 230 10*3/uL Normal 138-453 [facility] Comment on above: Performed By: #### P HO, CDP, RA, PT, SED, BMPX, FREDA, MG, LD, CRP, FEBC, B12FOL, PTT, C4, CCPAB, FERI, IOCAL, CORTI, CK, C3, REJEC #### [address] [address] Coding Director: Jasbir Montalvo MD RBC (Bld) [#/Vol] 4.61 10*6/uL Normal 4.21-5.77 [facility] Comment on above: Performed By: #### P HO, CDP, RA, PT, SED, BMPX, FREDA, MG, LD, CRP, FEBC, B12FOL, PTT, C4, CCPAB, FERI, IOCAL, CORTI, CK, C3, REJEC #### [address] [address] Coding Director: Jasbir Montalvo MD WBC (Bld) [#/Vol] 11.1 10*3/uL Normal 3.5-11.3 [facility] Comment on above: Performed By: #### P HO, CDP, RA, PT, SED, BMPX, FREDA, MG, LD, CRP, FEBC, B12FOL, PTT, C4, CCPAB, FERI, IOCAL, CORTI, CK, C3, REJEC #### [facility] [address] [id number] Coding Director: Jasbir Montalvo MD EEGon 12-02-2023 Ayo Torres [...] to moderate encephalopathy . Ayo Torres MD [facility] EEGOrdered By: Ayo Torres on 12-02-2023 [facility] Work Phone: Glucose,Whole Bloodon 2023 Glucose [Mass/Vol] 179 mg/dL High 75-110 [facility] Glucose [Mass/Vol] 169 mg/dL High 75-110 [facility] Glucose [Mass/Vol] 172 mg/dL High 75-110 [facility] Glucose [Mass/Vol] 117 mg/dL High 75-110 [facility] POC Glucose Fingerstickon Glucose [Mass/Vol] 179 mg/dL High 75 - 110 mg/dL [facility] Interpretation and review of laboratory results Abnormal [facility] Glucose [Mass/Vol] 169 mg/dL High 75 - 110 mg/dL [facility] Interpretation and review of laboratory results Abnormal [facility] Glucose [Mass/Vol] 172 mg/dL High 75 - 110 mg/dL [facility] Interpretation and review of laboratory results Abnormal [facility] Glucose [Mass/Vol] 117 mg/dL High 75 - 110 mg/dL [facility] Interpretation and review of laboratory results Abnormal [facility] PTon 12-02-2023 INR Coag (PPP) [Relative time] 2.8 {INR} Normal [facility] Comment on above: Result Comment: Therapeutic Range: Moderate Anticoagulant Intensity: INR = 2.0-3.0 High Anticoagulant Intensity: INR = 2.5-3.5 Performed By: #### P HO, CDP, RA, PT, SED, BMPX, FREDA, MG, LD, CRP, FEBC, B12FOL, PTT, C4, CCPAB, FERI, IOCAL, CORTI, CK, C3, REJEC #### [employer] [address] [place] [id number] Coding Director: Jasbir Montalvo MD PT Coag (PPP) [Time] 28.9 s High 11.7-14.9 [facility] Comment on above: Performed By: #### P HO, CDP, RA, PT, SED, BMPX, FREDA, MG, LD, CRP, FEBC, B12FOL, PTT, C4, CCPAB, FERI, IOCAL, CORTI, CK, C3, REJEC #### [employer] [address] [place] [address] Coding Director: Jasbir Montalvo MD Protime-INRon 12-02-2023 INR Coag (PPP) [Relative time] 2.8 {INR} [facility] Comment on above: Therapeutic Range: Moderate Anticoagulant Intensity: INR = 2.0-3.0 High Anticoagulant Intensity: INR = 2.5-3.5 Interpretation and review of laboratory results Abnormal [facility] PT Coag (PPP) [Time] 28.9 s High [facility] Aldolaseon 12-01-2023 Aldolase 6.9 U/L Normal 1.2-7.6 [facility] Comment on above: Result Comment: (NOT E) This specimen is Hemolyzed. This may cause the results to be falsely increased. REFERENCE INTERVAL: Aldolase Access complete set of age- and/or gender-specific reference intervals for this test in the [facility] Laboratory Test Directory ([employer]). Performed By: [facility] [employer] [address] [place] [id number] Inside [employer] Sales: Uriah Prasad MD, PhD CLIA Number: [id number] Performed By: #### P HO, CDP, RA, PT, SED, BMPX, FREDA, MG, LD, CRP, FEBC, B12FOL, PTT, C4, CCPAB, FERI, IOCAL, CORTI, CK, C3, REJEC #### [address] [id number] Coding Director: Jasbir Montalvo MD Aldolase [Catalytic activity/Vol] 6.9 mU/mL 1.2 - 7.6 U/L [facility] Comment on above: (NOTE) This specimen is Hemolyzed. This may cause the results to be falsely increased. REFERENCE INTERVAL: Aldolase Access complete set of age- and/or gender-specific reference intervals for this test in the [facility] Test Directory ([employer]). Performed By: [facility] [address] [place] [id number] Inside [employer] Sales: Uriah Prasad MD, PhD CLIA Number: [id number] [facility] Anti CCPon 12-01-2023 Anti CCP 1.5 U/mL Normal 0.0-7.0 [facility] Comment on above: Result Comment: Reference Range: <7.0 Negative 7.0-10.0 Equivocal >10.0 Positive Performed By: #### P HO, CDP, RA, PT, SED, BMPX, FREDA, MG, LD, CRP, FEBC, B12FOL, PTT, C4, CCPAB, FERI, IOCAL, CORTI, CK, C3, REJEC #### [address] [id number] Coding Director: Jasbir Montalvo MD Basic Metab w/rfx MGon 12-01 Anion gap [Moles/Vol] 10 mmol/L Normal 9-17 [facility] Comment on above: Performed By: #### P HO, CDP, RA, PT, SED, BMPX, FREDA, MG, LD, CRP, FEBC, B12FOL, PTT, C4, CCPAB, FERI, IOCAL, CORTI, CK, C3, REJEC #### [address] [id number] Coding Director: Jasbir Montalvo MD Calcium [Mass/Vol] 8.9 mg/dL Normal 8.6-10.4 [facility] Comment on above: Performed By: #### P HO, CDP, RA, PT, SED, BMPX, FREDA, MG, LD, CRP, FEBC, B12FOL, PTT, C4, CCPAB, FERI, IOCAL, CORTI, CK, C3, REJEC #### [address] [address] Coding Director: Jasbir Montalvo MD Chloride [Moles/Vol] 108 mmol/L High 98-107 [facility] Comment on above: Performed By: #### P HO, CDP, RA, PT, SED, BMPX, FREDA, MG, LD, CRP, FEBC, B12FOL, PTT, C4, CCPAB, FERI, IOCAL, CORTI, CK, C3, REJEC #### [address] [id number] Coding Director: Jasbir Montalvo MD CO2 [Moles/Vol] 22 mmol/L Normal 20-31 [facility] Comment on above: Performed By: #### P HO, CDP, RA, PT, SED, BMPX, FREDA, MG, LD, CRP, FEBC, B12FOL, PTT, C4, CCPAB, FERI, IOCAL, CORTI, CK, C3, REJEC #### [address] [id number] Coding Director: Jasbir Montalvo MD Creatinine [Mass/Vol] 1.6 mg/dL High 0.7-1.2 [facility] Comment on above: Performed By: #### P HO, CDP, RA, PT, SED, BMPX, FREDA, MG, LD, CRP, FEBC, B12FOL, PTT, C4, CCPAB, FERI, IOCAL, CORTI, CK, C3, REJEC #### [address] [id number] Coding Director: Jasbir Montalvo MD GFR/1.73 sq M.predicted among non-blacks MDRD (S/P/Bld) [Vol rate/Area] 48 mL/min/{1.73_m2} Low >60 [facility] Comment on above: Result Comment: These [...] FERI, IOCAL, CORTI, CK, C3, REJEC #### [address] [id number] Coding Director: Jasbir Montalvo MD Glucose [Mass/Vol] 144 mg/dL High 70-99 [facility] Comment on above: Performed By: #### P HO, CDP, RA, PT, SED, BMPX, FREDA, MG, LD, CRP, FEBC, B12FOL, PTT, C4, CCPAB, FERI, IOCAL, CORTI, CK, C3, REJEC #### [address] [id number] Coding Director: Jasbir Montalvo MD Potassium [Moles/Vol] 3.8 mmol/L Normal 3.7-5.3 [facility] Comment on above: Performed By: #### P HO, CDP, RA, PT, SED, BMPX, FREDA, MG, LD, CRP, FEBC, B12FOL, PTT, C4, CCPAB, FERI, IOCAL, CORTI, CK, C3, REJEC #### [facility] [employer] [address] [place] [address] Coding Director: Jasbir Montalvo MD Sodium [Moles/Vol] 140 mmol/L Normal 135-144 [facility] Comment on above: Performed By: #### P HO, CDP, RA, PT, SED, BMPX, FREDA, MG, LD, CRP, FEBC, B12FOL, PTT, C4, CCPAB, FERI, IOCAL, CORTI, CK, C3, REJEC #### [facility] [employer] [address] [place] [address] Coding Director: Jasbir Montalvo MD Urea nitrogen [Mass/Vol] 39 mg/dL High 8- [facility] Comment on above: Performed By: #### P HO, CDP, RA, PT, SED, BMPX, FREDA, MG, LD, CRP, FEBC, B12FOL, PTT, C4, CCPAB, FERI, IOCAL, CORTI, CK, C3, REJEC #### [facility] [employer] [address] [place] [id number] Coding Director: Jasbir Montalvo MD Basic Metabolic Panel w/ Ref sarah to MGon 12-01-2023 Anion gap [Moles/Vol] 10 mmol/L 9 - 17 mmol/L [facility] Calcium [Mass/Vol] 8.9 mg/dL 8.6 - 10. 4 mg/dL [facility] Chloride [Moles/Vol] 108 mmol/L High 98 - 107 mmol/L [facility] CO2 [Moles/Vol] 22 mmol/L 20 - 31 mmol/L [facility] Creatinine [Mass/Vol] 1.6 mg/dL High 0.7 - 1.2 mg/dL [facility] GFR/1.73 sq M.predicted MDRD (S/P/Bld) [Vol rate/Area] 48 mL/min/{1.73_m2} Low - PINF [facility] Comment on above: These results are [...] 144 mg/dL High 70 - 99 mg/dL [facility] Interpretation and review of laboratory results Abnormal [facility] Potassium [Moles/Vol] 3.8 mmol/L 3.7 - 5.3 mmol/L [facility] Sodium [Moles/Vol] 140 mmol/L 135 - 144 mmol/L [facility] Urea nitrogen [Mass/Vol] 39 mg/dL High 8 - 23 mg/dL [facility] CBC with Auto Differentialon 12-01-2023 Basophils (Bld) [#/Vol] 0.08 10*3/uL [facility] Basophils/100 WBC (Bld) 1 % 0 - 2 % [facility] Eosinophils (Bld) [#/Vol] 0.37 10*3/uL [facility] Eosinophils/100 WBC (Bld) 3 % 1 - 4 % [facility] Erythrocyte distribution width (RBC) [Ratio] 14.4 % 11.8 - 14.4 % [facility] Hematocrit (Bld) [Volume fraction] 46.3 % 40.7 - 50.3 % [facility] Hemoglobin (Bld) [Mass/Vol] 14.6 g/dL 13.0 - 17.0 g/dL [facility] Immature granulocytes (Bld) [#/Vol] 0.04 10*3/uL [facility] Immature granulocytes/100 WBC (Bld) 0 % 0 [facility] Lymphocytes/100 WBC (Bld) 25 % 24 - 43 % [facility] Lymphocytes/100 WBC (Bld) 2.76 % [facility] MCH (RBC) [Entitic mass] 31.2 pg 25.2 - 33.5 pg [facility] MCHC (RBC) [Mass/Vol] 31.5 g/dL 28.4 - 34.8 g/dL [facility] MCV (RBC) [Entitic vol] 98.9 fL 82.6 - 102.9 fL [facility] Monocytes/100 WBC (Bld) 8 % 3 - 12 % [facility] Monocytes/100 WBC (Bld) 0.82 % [facility] Neutrophils/100 WBC (Bld) 63 % 36 - 65 % [facility] Nucleated RBC/100 WBC (Bld) [Ratio] 0.0 % 0.0 per 100 WBC [facility] Platelet mean volume (Bld) [Entitic vol] 10.4 fL 8.1 - 13.5 fL [facility] Platelets (Bld) [#/Vol] 223 10*3/uL [facility] RBC (Bld) [#/Vol] 4.68 10*6/uL 4.21 - 5.7 7 m/uL [facility] Segmented neutrophils/100 WBC (Bld) 6.78 % [facility] WBC other (Bld) [#/Vol] 10.9 [facility] CBC with Diffon 12-01-2023 Abs. Basophil 0.08 k/uL Normal 0.00-0.20 [facility] Comment on above: Performed By: #### P HO, CDP, RA, PT, SED, BMPX, FREDA, MG, LD, CRP, FEBC, B12FOL, PTT, C4, CCPAB, FERI, IOCAL, CORTI, CK, C3, REJEC #### [facility] [address] [place] [address] Coding Director: Jasbir Montalvo MD Abs.Imm.Granulocyte 0.04 k/uL Normal 0.00-0.30 [facility] Comment on above: Performed By: #### P HO, CDP, RA, PT, SED, BMPX, FREDA, MG, LD, CRP, FEBC, B12FOL, PTT, C4, CCPAB, FERI, IOCAL, CORTI, CK, C3, REJEC #### [address] [address] Coding Director: Jasbir Montalvo MD Abs.Neutrophil (Seg) 6.78 k/uL Normal 1.50-8.10 [facility] Comment on above: Performed By: #### P HO, CDP, RA, PT, SED, BMPX, FREDA, MG, LD, CRP, FEBC, B12FOL, PTT, C4, CCPAB, FERI, IOCAL, CORTI, CK, C3, REJEC #### [address] [address] Coding Director: Jasbir Montalvo MD Basophils/100 WBC (Bld) 1 % Normal 0-2 [facility] Comment on above: Performed By: #### P HO, CDP, RA, PT, SED, BMPX, FREDA, MG, LD, CRP, FEBC, B12FOL, PTT, C4, CCPAB, FERI, IOCAL, CORTI, CK, C3, REJEC #### [address] [address] Coding Director: Jasbir Montalvo MD Eosinophils (Bld) [#/Vol] 0.37 10*3/uL Normal 0.00-0.44 [facility] Comment on above: Performed By: #### P HO, CDP, RA, PT, SED, BMPX, FREDA, MG, LD, CRP, FEBC, B12FOL, PTT, C4, CCPAB, FERI, IOCAL, CORTI, CK, C3, REJEC #### [address] [address] Coding Director: Jasbir Montalvo MD Eosinophils/100 WBC (Bld) 3 % Normal 1-4 [facility] Comment on above: Performed By: #### P HO, CDP, RA, PT, SED, BMPX, FREDA, MG, LD, CRP, FEBC, B12FOL, PTT, C4, CCPAB, FERI, IOCAL, CORTI, CK, C3, REJEC #### [address] [address] Coding Director: Jasbir Montalvo MD Erythrocyte distribution width (RBC) [Ratio] 14.4 % Normal 11.8-14.4 [facility] Comment on above: Performed By: #### P HO, CDP, RA, PT, SED, BMPX, FREDA, MG, LD, CRP, FEBC, B12FOL, PTT, C4, CCPAB, FERI, IOCAL, CORTI, CK, C3, REJEC #### [address] [address] Coding Director: Jasbir Montalvo MD Hematocrit (Bld) [Volume fraction] 46.3 % Normal 40.7-50.3 [facility] Comment on above: Performed By: #### P HO, CDP, RA, PT, SED, BMPX, FREDA, MG, LD, CRP, FEBC, B12FOL, PTT, C4, CCPAB, FERI, IOCAL, CORTI, CK, C3, REJEC #### [address] [address] Coding Director: Jasbir Montalvo MD Hemoglobin (Bld) [Mass/Vol] 14.6 g/dL Normal 13.0-17.0 [facility] Comment on above: Performed By: #### P HO, CDP, RA, PT, SED, BMPX, FREDA, MG, LD, CRP, FEBC, B12FOL, PTT, C4, CCPAB, FERI, IOCAL, CORTI, CK, C3, REJEC #### [address] [address] Coding Director: Jasbir Montalvo MD Immature granulocytes/100 WBC (Bld) 0 % Normal 0 [facility] Comment on above: Performed By: #### P HO, CDP, RA, PT, SED, BMPX, FREDA, MG, LD, CRP, FEBC, B12FOL, PTT, C4, CCPAB, FERI, IOCAL, CORTI, CK, C3, REJEC #### [address] [address] Coding Director: Jasbir Montalvo MD Lymphocytes (Bld) [#/Vol] 2.76 10*3/uL Normal 1.10-3.70 [facility] Comment on above: Performed By: #### P HO, CDP, RA, PT, SED, BMPX, FREDA, MG, LD, CRP, FEBC, B12FOL, PTT, C4, CCPAB, FERI, IOCAL, CORTI, CK, C3, REJEC #### [address] [address] Coding Director: Jasbir Montalvo MD Lymphocytes/100 WBC (Bld) 25 % Normal 24-43 [facility] Comment on above: Performed By: #### P HO, CDP, RA, PT, SED, BMPX, FREDA, MG, LD, CRP, FEBC, B12FOL, PTT, C4, CCPAB, FERI, IOCAL, CORTI, CK, C3, REJEC #### [address] [address] Coding Director: Jasbir Montalvo MD MCH (RBC) [Entitic mass] 31.2 pg Normal 25.2-33.5 [facility] Comment on above: Performed By: #### P HO, CDP, RA, PT, SED, BMPX, FREDA, MG, LD, CRP, FEBC, B12FOL, PTT, C4, CCPAB, FERI, IOCAL, CORTI, CK, C3, REJEC #### [address] [address] Coding Director: Jasbir Montalvo MD MCHC (RBC) [Mass/Vol] 31.5 g/dL Normal 28.4-34.8 [facility] Comment on above: Performed By: #### P HO, CDP, RA, PT, SED, BMPX, FREDA, MG, LD, CRP, FEBC, B12FOL, PTT, C4, CCPAB, FERI, IOCAL, CORTI, CK, C3, REJEC #### [address] [address] Coding Director: Jasbir Montalvo MD MCV (RBC) [Entitic vol] 98.9 fL Normal 82.6-102.9 [facility] Comment on above: Performed By: #### P HO, CDP, RA, PT, SED, BMPX, FREDA, MG, LD, CRP, FEBC, B12FOL, PTT, C4, CCPAB, FERI, IOCAL, CORTI, CK, C3, REJEC #### [address] [address] Coding Director: Jasbir Montalvo MD Monocytes (Bld) [#/Vol] 0.82 10*3/uL Normal 0.10-1.20 [facility] Comment on above: Performed By: #### P HO, CDP, RA, PT, SED, BMPX, FREDA, MG, LD, CRP, FEBC, B12FOL, PTT, C4, CCPAB, FERI, IOCAL, CORTI, CK, C3, REJEC #### [address] [address] Coding Director: Jasbir Montalvo MD Monocytes/100 WBC (Bld) 8 % Normal 3-12 [facility] Comment on above: Performed By: #### P HO, CDP, RA, PT, SED, BMPX, FREDA, MG, LD, CRP, FEBC, B12FOL, PTT, C4, CCPAB, FERI, IOCAL, CORTI, CK, C3, REJEC #### [address] [address] Coding Director: Jasbir Montalvo MD Neutrophil (Seg) 63 % Normal 36-65 [facility] Comment on above: Performed By: #### P HO, CDP, RA, PT, SED, BMPX, FREDA, MG, LD, CRP, FEBC, B12FOL, PTT, C4, CCPAB, FERI, IOCAL, CORTI, CK, C3, REJEC #### [address] [address] Coding Director: Jasbir Montalvo MD NRBC Automated 0.0 per 100 WBC Normal 0.0 [facility] Comment on above: Performed By: #### P HO, CDP, RA, PT, SED, BMPX, FREDA, MG, LD, CRP, FEBC, B12FOL, PTT, C4, CCPAB, FERI, IOCAL, CORTI, CK, C3, REJEC #### [address] [address] Coding Director: Jasbir Montalvo MD Platelet mean volume (Bld) [Entitic vol] 10.4 fL Normal 8.1-13.5 [facility] Comment on above: Performed By: #### P HO, CDP, RA, PT, SED, BMPX, FREDA, MG, LD, CRP, FEBC, B12FOL, PTT, C4, CCPAB, FERI, IOCAL, CORTI, CK, C3, REJEC #### [address] [address] Coding Director: Jasbir Montalvo MD Platelets (Bld) [#/Vol] 223 10*3/uL Normal 138-453 [facility] Comment on above: Performed By: #### P HO, CDP, RA, PT, SED, BMPX, FREDA, MG, LD, CRP, FEBC, B12FOL, PTT, C4, CCPAB, FERI, IOCAL, CORTI, CK, C3, REJEC #### [address] [address] Coding Director: Jasbir Montalvo MD RBC (Bld) [#/Vol] 4.68 10*6/uL Normal 4.21-5.77 [facility] Comment on above: Performed By: #### P HO, CDP, RA, PT, SED, BMPX, FREDA, MG, LD, CRP, FEBC, B12FOL, PTT, C4, CCPAB, FERI, IOCAL, CORTI, CK, C3, REJEC #### [address] [place], [place] [id number] Coding Director: Jasbir Montalvo MD WBC (Bld) [#/Vol] 10.9 10*3/uL Normal 3.5-11.3 [facility] Comment on above: Performed By: #### P HO, CDP, RA, PT, SED, BMPX, FREDA, MG, LD, CRP, FEBC, B12FOL, PTT, C4, CCPAB, FERI, IOCAL, CORTI, CK, C3, REJEC #### [facility] [employer] [address] [place] [id number] Coding Director: Jasbir Montalvo MD CT CERVICAL SPINE WO [...] HISTORY: rule out myelopathy, radiculopathy. cannot have [employer] PROVIDED HISTORY: rule out myelopathy, radiculopathy. cannot [...] Erica Garcia MD 12/01/23 Final result Normal [facility] CT Cervical spine WO contras ton 12-01-2023 Canal effacement at C6-7. [facility] RIS CONSOLIDATED EXAMINATION: CT OF THE [...] HISTORY: rule out myelopathy, radiculopathy. cannot have [employer] PROVIDED HISTORY: rule out myelopathy, radiculopathy. cannot [...] C7-T1 facet arthropathy.. Mild bilateral foraminal narrowing [facility] RIS CONSOLIDATED Erica Garcia MD - [...] HISTORY: rule out myelopathy, radiculopathy. cannot have [employer] PROVIDED HISTORY: rule out myelopathy, radiculopathy. cannot [...] foraminal narrowing IMPRESSION: Canal effacement at C6-7. [facility] Radiology Study observation (narrative) [facility] [employer] [facility] CT Cervical spine WO contras tOrdered By: Erica Garcia on 12-01-2023 [facility] Work Phone: CYCLIC CITRUL PEPTIDE ANTIBO DY, IGGon 12-01-2023 Cyclic citrullinated peptide Ab IA Qn (S) 1.5 U/mL 0.0 - 7.0 U/mL [facility] Comment on above: Reference Range: <7.0 Negative 7.0-10.0 Equivocal >10.0 Positive [facility] [place] MODIFIED BARIUM SWALLOW W VIDEOon 12-01-2023 [place] MODIFIED BARIUM SWALLOW W VIDEO EXAMINATION: MODIFIED BARIUM SWALLOW WAS PERFORMED IN CONJUNCTION WITH [employer] TECHNIQUE: Under fluoroscopic evaluation cineradiography/videoradio graphy recordings were performed in conjunction with the speech-language pathologist ([employer]). Various liquid, solid and/or semi-solid barium preparations [...] Micah Davis MD 12/01/23 Final result Normal [facility] 1. Trace penetration without aspiration with the thin liquid substance by straw. 2. No penetration or aspiration with the above administered substances. Please see separate speech pathology report for full discussion of findings and recommendations. [facility] CONSOLIDATED EXAMINATION: MODIFIED BARIUM SWALLOW WAS PERFORMED IN CONJUNCTION WITH [employer] TECHNIQUE: Under fluoroscopic evaluation cineradiography/videoradio graphy recordings were performed in conjunction with the speech-language pathologist ([employer]). Various liquid, solid and/or semi-solid barium preparations [...] with the thin liquid substance by straw. [facility] CONSOLIDATED Micah Davis MD - 12/01/2023 EXAMINATION: MODIFIED BARIUM SWALLOW WAS PERFORMED IN CONJUNCTION WITH [employer] TECHNIQUE: Under fluoroscopic evaluation cineradiography/videoradio graphy recordings were performed in conjunction with the speech-language pathologist ([employer]). Various liquid, solid and/or semi-solid barium preparations [...] for full discussion of findings and recommendations. [facility] Radiology Study observation (narrative) [facility] [employer] [place] MODIFIED BARIUM SWALLOW W VIDEOOrdered By: Micah Davis on 12-01-2023 [facility] [employer] Work Phone: Glucose,Whole Bloodon 2023 Glucose [Mass/Vol] 168 mg/dL High 75-110 [facility] Glucose [Mass/Vol] 108 mg/dL Normal 75-110 [facility] Glucose [Mass/Vol] 226 mg/dL High 75-110 [facility] Glucose [Mass/Vol] 150 mg/dL High 75-110 [facility] Glucose [Mass/Vol] 148 mg/dL High 75-110 [facility] POC Glucose Fingerstickon Glucose [Mass/Vol] 168 mg/dL High 75 - 110 mg/dL [facility] Interpretation and review of laboratory results Abnormal [facility] Glucose [Mass/Vol] 108 mg/dL 75 - 110 mg/dL [facility] Glucose [Mass/Vol] 226 mg/dL High 75 - 110 mg/dL [facility] Interpretation and review of laboratory results Abnormal [facility] Glucose [Mass/Vol] 150 mg/dL High 75 - 110 mg/dL [facility] Interpretation and review of laboratory results Abnormal [facility] Glucose [Mass/Vol] 148 mg/dL High 75 - 110 mg/dL [facility] Interpretation and review of laboratory results Abnormal [facility] PSA Screeningon 12-01-2023 Prostate specific Ag [Mass/Vol] 1.50 ng/mL 0.00 - 4.00 ng/mL [facility] Comment on above: The Saray ECLIA as say is used. Results obtained with different assay methods cannot be used interchangeably. [facility] PSA, Screeningon 12-01-2023 Prostatic Spec. Ag 1.50 ng/mL Normal 0.00-4.00 [facility] Comment on above: Result Comment: The Saray ECLIA assay is used. Results obtained with different assay methods cannot be used interchangeably. Performed By: #### P HO, CDP, RA, PT, SED, BMPX, FREDA, MG, LD, CRP, FEBC, B12FOL, PTT, C4, CCPAB, FERI, IOCAL, CORTI, CK, C3, REJEC #### [facility] [employer] [address] [place] [id number] Coding Director: Jasbir Montalvo MD PTon 12-01-2023 INR Coag (PPP) [Relative time] 2.8 {INR} Normal [facility] Comment on above: Result Comment: Therapeutic Range: Moderate Anticoagulant Intensity: INR = 2.0-3.0 High Anticoagulant Intensity: INR = 2.5-3.5 Performed By: #### P HO, CDP, RA, PT, SED, BMPX, FREDA, MG, LD, CRP, FEBC, B12FOL, PTT, C4, CCPAB, FERI, IOCAL, CORTI, CK, C3, REJEC #### [employer] [address] [place] [id number] Coding Director: Jasbir Montalvo MD PT Coag (PPP) [Time] 28.5 s High 11.7-14.9 [facility] Comment on above: Performed By: #### P HO, CDP, RA, PT, SED, BMPX, FREDA, MG, LD, CRP, FEBC, B12FOL, PTT, C4, CCPAB, FERI, IOCAL, CORTI, CK, C3, REJEC #### [employer] [address] [place] [id number] Coding Director: Jasbir Montalvo MD Protime-INRon 12-01-2023 INR Coag (PPP) [Relative time] 2.8 {INR} [facility] Comment on above: Therapeutic Range: Moderate Anticoagulant Intensity: INR = 2.0-3.0 High Anticoagulant Intensity: INR = 2.5-3.5 Interpretation and review of laboratory results Abnormal [facility] PT Coag (PPP) [Time] 28.5 s High [facility] Troponinon 12-01-2023 Troponin, High Sens 23 ng/L High 0-22 [facility] Comment on above: Result Comment: High Sensitivity Troponin values cannot be compared with other Troponin methodologies. Performed By: #### P HO, CDP, RA, PT, SED, BMPX, FREDA, MG, LD, CRP, FEBC, B12FOL, PTT, C4, CCPAB, FERI, IOCAL, CORTI, CK, C3, REJEC #### [employer] [address] [place] [id number] Coding Director: Jasbir Montalvo MD Interpretation and review of laboratory results Abnormal [facility] Troponin I.cardiac High sensitivity method [Mass/Vol] 23 ng/L High 0 - 22 ng/L [facility] Comment on above: High Sensitivity Tro ponin values cannot be compared with other Troponin methodologies. [facility] APTTon 11-30-2023 aPTT Coag (Bld) [Time] 38.4 s High 23.0-36.5 [facility] Comment on above: Result Comment: IV Heparin Therapy Range: 66.0-92.0 sec Performed By: #### P HO, CDP, RA, PT, SED, BMPX, FREDA, MG, LD, CRP, FEBC, B12FOL, PTT, C4, CCPAB, FERI, IOCAL, CORTI, CK, C3, REJEC ####[employer] [place] [id number] Lab Director: Jasbir Montalvo MD aPTT Coag (Bld) [Time] 38.4 s High [facility] Comment on above: IV Heparin Therapy Range: 66.0-92.0 sec B12/Folate Panelon Cobalamin (Vitamin B12) [Mass/Vol] 397 pg/mL Normal 232-1245 [facility] Comment on above: Performed By: #### P HO, CDP, RA, PT, SED, BMPX, FREDA, MG, LD, CRP, FEBC, B12FOL, PTT, C4, CCPAB, FERI, IOCAL, CORTI, CK, C3, REJEC ####[facility] [id number] [place], [place] [id number] Lab Director: Jasbir Montalvo MD Folic Acid 6.2 ng/mL Normal >4.8 [facility] Comment on above: Performed By: #### P HO, CDP, RA, PT, SED, BMPX, FREDA, MG, LD, CRP, FEBC, B12FOL, PTT, C4, CCPAB, FERI, IOCAL, CORTI, CK, C3, REJEC ####[facility] [id number] [place], [place] [id number] lab Director: Jasbir Montalvo MD BLOOD GAS, VENOUSon 11-30-19 Carboxyhemoglobin (Bld) [Mass fraction] 1.6 % 0 - 5 % [facility] Comment on above: Reference Range: Non-Smokers 0-2% Average Smoker 2-4% Heavy Smoker <10% HCO3 (Bld) [Moles/Vol] 26.1 mmol/L 24 - 30 mmol/L [facility] Interpretation and review of laboratory results Abnormal [facility] Negative Base Excess, Pop 1.1 mmol/L 0.0 - 2.0 mmol/L [facility] Oxygen saturation in Blood 84.3 % 60.0 - 85.0 % [facility] Oxygen/Inspired gas Respiratory system --on ventilator INFORMATION NOT PROVIDED [facility] pCO2, Pop 55.2 High [facility] pH, Pop 7.297 Low 7.320 - 7.420 [facility] pO2, Pop 55.2 High [facility] Basic Metab w/rfx MGon 11-30 Glucose [Mass/Vol] 49 mg/dL Low 70-99 [facility] Comment on above: Performed By: #### P HO, CDP, RA, PT, SED, BMPX, FREDA, MG, LD, CRP, FEBC, B12FOL, PTT, C4, CCPAB, FERI, IOCAL, CORTI, CK, C3, REJEC ####[address] [id number] [facility] Director: Jasbir Montalvo MD Anion gap [Moles/Vol] 11 mmol/L Normal 9-17 [facility] Comment on above: Performed By: #### P HO, CDP, RA, PT, SED, BMPX, FREDA, MG, LD, CRP, FEBC, B12FOL, PTT, C4, CCPAB, FERI, IOCAL, CORTI, CK, C3, REJEC ####[place] [id number] lab Director: Jasbir Montalvo MD Calcium [Mass/Vol] 8.9 mg/dL Normal 8.6-10.4 [facility] Comment on above: Performed By: #### P HO, CDP, RA, PT, SED, BMPX, FREDA, MG, LD, CRP, FEBC, B12FOL, PTT, C4, CCPAB, FERI, IOCAL, CORTI, CK, C3, REJEC ####[address] [id number] lab Director: Jasbir Montalvo MD Chloride [Moles/Vol] 114 mmol/L High 98-107 [facility] Comment on above: Performed By: #### P HO, CDP, RA, PT, SED, BMPX, FREDA, MG, LD, CRP, FEBC, B12FOL, PTT, C4, CCPAB, FERI, IOCAL, CORTI, CK, C3, REJEC ####[address] [id number] lab Director: Jasbir Montalvo MD CO2 [Moles/Vol] 21 mmol/L Normal 20-31 [facility] Comment on above: Performed By: #### P HO, CDP, RA, PT, SED, BMPX, FREDA, MG, LD, CRP, FEBC, B12FOL, PTT, C4, CCPAB, FERI, IOCAL, CORTI, CK, C3, REJEC ####[address] [id number] Lab Director: Jasbir Montalvo MD Creatinine [Mass/Vol] 1.5 mg/dL High 0.7-1.2 [facility] Comment on above: Performed By: #### P HO, CDP, RA, PT, SED, BMPX, FREDA, MG, LD, CRP, FEBC, B12FOL, PTT, C4, CCPAB, FERI, IOCAL, CORTI, CK, C3, REJEC ####[place] [id number] [place] [address] [facility] Director: Jasbir Montalvo MD GFR/1.73 sq M.predicted among non-blacks MDRD (S/P/Bld) [Vol rate/Area] 52 mL/min/{1.73_m2} Low >60 [facility] Comment on above: Result Comment: These [...] CCPAB, FERI, IOCAL, CORTI, CK, C3, REJEC ####[place] [id number] [place] [address] Lab Director: Jasbir Montalvo MD Potassium [Moles/Vol] 3.7 mmol/L Normal 3.7-5.3 [facility] Comment on above: Performed By: #### P HO, CDP, RA, PT, SED, BMPX, FREDA, MG, LD, CRP, FEBC, B12FOL, PTT, C4, CCPAB, FERI, IOCAL, CORTI, CK, C3, REJEC ####[facility] [id number] [place], [place] [id number] Lab Director: Jasbir Montalvo MD Sodium [Moles/Vol] 146 mmol/L High 135-144 [facility] Comment on above: Performed By: #### P HO, CDP, RA, PT, SED, BMPX, FREDA, MG, LD, CRP, FEBC, B12FOL, PTT, C4, CCPAB, FERI, IOCAL, CORTI, CK, C3, REJEC ####[id number] [place], [place] [id number] lab Director: Jasbir Montalvo MD Urea nitrogen [Mass/Vol] 37 mg/dL High 8 [facility] Comment on above: Performed By: #### P HO, CDP, RA, PT, SED, BMPX, FREDA, MG, LD, CRP, FEBC, B12FOL, PTT, C4, CCPAB, FERI, IOCAL, CORTI, CK, C3, REJEC ####[facility] [id number] [place], [place] [id number] lab Director: Jasbir Montalvo MD Basic Metabolic Panel w/ Ref sarah to MGon 11-30-2023 Anion gap [Moles/Vol] 11 mmol/L 9 - 17 mmol/L [facility] Calcium [Mass/Vol] 8.9 mg/dL 8.6 - 10. 4 mg/dL [facility] [employer]! Chloride [Moles/Vol] 114 mmol/L High 98 - 107 mmol/L [facility] CO2 [Moles/Vol] 21 mmol/L 20 - 31 mmol/L [facility] Creatinine [Mass/Vol] 1.5 mg/dL High 0.7 - 1.2 mg/dL [facility] GFR/1.73 sq M.predicted MDRD (S/P/Bld) [Vol rate/Area] 52 mL/min/{1.73_m2} Low - PINF [facility] Comment on above: These results are [...] 49 mg/dL Low 70 - 99 mg/dL [facility] Interpretation and review of laboratory results Abnormal [facility] Potassium [Moles/Vol] 3.7 mmol/L 3.7 - 5.3 mmol/L [facility] Sodium [Moles/Vol] 146 mmol/L High 135 - 144 mmol/L [facility] Urea nitrogen [Mass/Vol] 37 mg/dL High 8 - 23 mg/dL [facility] C-Reactive Proteinon 024 CRP [Mass/Vol] 4.8 mg/L Normal 0.0-5.0 [facility] Comment on above: Performed By: #### P HO, CDP, RA, PT, SED, BMPX, FREDA, MG, LD, CRP, FEBC, B12FOL, PTT, C4, CCPAB, FERI, IOCAL, CORTI, CK, C3, REJEC #### [facility] [employer] [address] [place] [address] [id number] Coding Director: Jasbir Montalvo MD CRP High sensitivity method [Mass/Vol] 4.8 mg/L 0.0 - 5.0 mg/L [facility] C3on 11-30-2023 C3 146 mg/dL Normal 90-180 [facility] Comment on above: Performed By: #### P HO, CDP, RA, PT, SED, BMPX, FREDA, MG, LD, CRP, FEBC, B12FOL, PTT, C4, CCPAB, FERI, IOCAL, CORTI, CK, C3, REJEC #### [employer] [address] [place], [place] [id number] Coding Director: Jasbir Montalvo MD C3 COMPLEMENTon 11-30-2023 Complement C3 [Mass/Vol] 146 mg/dL 90 - 180 mg/dL [facility] C4on 11-30-2023 C4 24 mg/dL Normal 10-40 [facility] Comment on above: Performed By: #### P HO, CDP, RA, PT, SED, BMPX, FREDA, MG, LD, CRP, FEBC, B12FOL, PTT, C4, CCPAB, FERI, IOCAL, CORTI, CK, C3, REJEC #### [employer] [address] [place] [address] Coding Director: Jasbir Montalvo MD C4 COMPLEMENTon 11-30-2023 Complement C4 [Mass/Vol] 24 mg/dL 10 - 40 mg/dL [facility] CBC with Auto Differentialon 11-30-2023 Basophils (Bld) [#/Vol] 0.08 10*3/uL [facility] Basophils/100 WBC (Bld) 1 % 0 - 2 % [facility] Eosinophils (Bld) [#/Vol] 0.31 10*3/uL [facility] Eosinophils/100 WBC (Bld) 3 % 1 - 4 % [facility] Erythrocyte distribution width (RBC) [Ratio] 14.2 % 11.8 - 14.4 % [facility] Hematocrit (Bld) [Volume fraction] 49.3 % 40.7 - 50.3 % [facility] Hemoglobin (Bld) [Mass/Vol] 15.4 g/dL 13.0 - 17.0 g/dL [facility] Immature granulocytes (Bld) [#/Vol] [facility] Immature granulocytes/100 WBC (Bld) 0 % 0 [facility] Lymphocytes/100 WBC (Bld) 26 % 24 - 43 % [facility] Lymphocytes/100 WBC (Bld) 2.64 % [facility] MCH (RBC) [Entitic mass] 31.2 pg 25.2 - 33.5 pg [facility] MCHC (RBC) [Mass/Vol] 31.2 g/dL 28.4 - 34.8 g/dL [facility] MCV (RBC) [Entitic vol] 99.8 fL 82.6 - 102.9 fL [facility] Monocytes/100 WBC (Bld) 7 % 3 - 12 % [facility] Monocytes/100 WBC (Bld) 0.74 % [facility] Neutrophils/100 WBC (Bld) 63 % 36 - 65 % [facility] Nucleated RBC/100 WBC (Bld) [Ratio] 0.0 % 0.0 per 100 WBC [facility] Platelet mean volume (Bld) [Entitic vol] 10.0 fL 8.1 - 13.5 fL [facility] Platelets (Bld) [#/Vol] 214 10*3/uL [facility] RBC (Bld) [#/Vol] 4.94 10*6/uL 4.21 - 5.7 7 m/uL [facility] Segmented neutrophils/100 WBC (Bld) 6.30 % [facility] WBC other (Bld) [#/Vol] 10.1 [facility] CBC with Diffon 11-30-2023 Abs. Basophil 0.08 k/uL Normal 0.00-0.20 [facility] Comment on above: Performed By: #### P HO, CDP, RA, PT, SED, BMPX, FREDA, MG, LD, CRP, FEBC, B12FOL, PTT, C4, CCPAB, FERI, IOCAL, CORTI, CK, C3, REJEC #### [employer] [facility] [place] [address] Coding Director: Jasbir Montalvo MD Abs.Imm.Granulocyte <0.03 Normal 0.00-0.30 [facility] Comment on above: Performed By: #### P HO, CDP, RA, PT, SED, BMPX, FREDA, MG, LD, CRP, FEBC, B12FOL, PTT, C4, CCPAB, FERI, IOCAL, CORTI, CK, C3, REJEC #### [facility] [employer] [address] [place] [address] [id number] Coding Director: Jasbir Montalvo MD Abs.Neutrophil (Seg) 6.30 k/uL Normal 1.50-8.10 [facility] Comment on above: Performed By: #### P HO, CDP, RA, PT, SED, BMPX, FREDA, MG, LD, CRP, FEBC, B12FOL, PTT, C4, CCPAB, FERI, IOCAL, CORTI, CK, C3, REJEC #### [facility] [employer] [address] [place] [address] [id number] Coding Director: Jasbir Montalvo MD Basophils/100 WBC (Bld) 1 % Normal 0-2 [facility] Comment on above: Performed By: #### P HO, CDP, RA, PT, SED, BMPX, FREDA, MG, LD, CRP, FEBC, B12FOL, PTT, C4, CCPAB, FERI, IOCAL, CORTI, CK, C3, REJEC #### [facility] [employer] [address] [place] [address] [id number] Coding Director: Jasbir Montalvo MD Eosinophils (Bld) [#/Vol] 0.31 10*3/uL Normal 0.00-0.44 [facility] Comment on above: Performed By: #### P HO, CDP, RA, PT, SED, BMPX, FREDA, MG, LD, CRP, FEBC, B12FOL, PTT, C4, CCPAB, FERI, IOCAL, CORTI, CK, C3, REJEC #### [facility] [employer] [address] [place] [id number] Coding Director: Jasbir Montalvo MD Eosinophils/100 WBC (Bld) 3 % Normal 1-4 [facility] Comment on above: Performed By: #### P HO, CDP, RA, PT, SED, BMPX, FREDA, MG, LD, CRP, FEBC, B12FOL, PTT, C4, CCPAB, FERI, IOCAL, CORTI, CK, C3, REJEC #### [address] [address] Coding Director: Jasbir Montalvo MD Erythrocyte distribution width (RBC) [Ratio] 14.2 % Normal 11.8-14.4 [facility] Comment on above: Performed By: #### P HO, CDP, RA, PT, SED, BMPX, FREDA, MG, LD, CRP, FEBC, B12FOL, PTT, C4, CCPAB, FERI, IOCAL, CORTI, CK, C3, REJEC #### [address] [address] Coding Director: Jasbir Montalvo MD Hematocrit (Bld) [Volume fraction] 49.3 % Normal 40.7-50.3 [facility] Comment on above: Performed By: #### P HO, CDP, RA, PT, SED, BMPX, FREDA, MG, LD, CRP, FEBC, B12FOL, PTT, C4, CCPAB, FERI, IOCAL, CORTI, CK, C3, REJEC #### [address] [address] Coding Director: Jasbir Montalvo MD Hemoglobin (Bld) [Mass/Vol] 15.4 g/dL Normal 13.0-17.0 [facility] Comment on above: Performed By: #### P HO, CDP, RA, PT, SED, BMPX, FREDA, MG, LD, CRP, FEBC, B12FOL, PTT, C4, CCPAB, FERI, IOCAL, CORTI, CK, C3, REJEC #### [address] [address] Coding Director: Jasbir Montalvo MD Immature granulocytes/100 WBC (Bld) 0 % Normal 0 [facility] Comment on above: Performed By: #### P HO, CDP, RA, PT, SED, BMPX, FREDA, MG, LD, CRP, FEBC, B12FOL, PTT, C4, CCPAB, FERI, IOCAL, CORTI, CK, C3, REJEC #### [facility] [employer] [address] [place] [address] [id number] Coding Director: Jasbir Montalvo MD Lymphocytes (Bld) [#/Vol] 2.64 10*3/uL Normal 1.10-3.70 [facility] Comment on above: Performed By: #### P HO, CDP, RA, PT, SED, BMPX, FREDA, MG, LD, CRP, FEBC, B12FOL, PTT, C4, CCPAB, FERI, IOCAL, CORTI, CK, C3, REJEC #### [facility] [employer] [address] [place] [id number] Coding Director: Jasbir Montalvo MD Lymphocytes/100 WBC (Bld) 26 % Normal 24-43 [facility] Comment on above: Performed By: #### P HO, CDP, RA, PT, SED, BMPX, FREDA, MG, LD, CRP, FEBC, B12FOL, PTT, C4, CCPAB, FERI, IOCAL, CORTI, CK, C3, REJEC #### [facility] [employer] [address] [place] [id number] Coding Director: Jasbir Montalvo MD MCH (RBC) [Entitic mass] 31.2 pg Normal 25.2-33.5 [facility] Comment on above: Performed By: #### P HO, CDP, RA, PT, SED, BMPX, FREDA, MG, LD, CRP, FEBC, B12FOL, PTT, C4, CCPAB, FERI, IOCAL, CORTI, CK, C3, REJEC #### [facility] [employer] [address] [place] [id number] Coding Director: Jasbir Montalvo MD MCHC (RBC) [Mass/Vol] 31.2 g/dL Normal 28.4-34.8 [facility] Comment on above: Performed By: #### P HO, CDP, RA, PT, SED, BMPX, FREDA, MG, LD, CRP, FEBC, B12FOL, PTT, C4, CCPAB, FERI, IOCAL, CORTI, CK, C3, REJEC #### [address] [address] Coding Director: Jasbir Montalvo MD MCV (RBC) [Entitic vol] 99.8 fL Normal 82.6-102.9 [facility] Comment on above: Performed By: #### P HO, CDP, RA, PT, SED, BMPX, FREDA, MG, LD, CRP, FEBC, B12FOL, PTT, C4, CCPAB, FERI, IOCAL, CORTI, CK, C3, REJEC #### [address] [address] Coding Director: Jasbir Montalvo MD Monocytes (Bld) [#/Vol] 0.74 10*3/uL Normal 0.10-1.20 [facility] Comment on above: Performed By: #### P HO, CDP, RA, PT, SED, BMPX, FREDA, MG, LD, CRP, FEBC, B12FOL, PTT, C4, CCPAB, FERI, IOCAL, CORTI, CK, C3, REJEC #### [address] [address] Coding Director: Jasbir Montalvo MD Monocytes/100 WBC (Bld) 7 % Normal 3-12 [facility] Comment on above: Performed By: #### P HO, CDP, RA, PT, SED, BMPX, FREDA, MG, LD, CRP, FEBC, B12FOL, PTT, C4, CCPAB, FERI, IOCAL, CORTI, CK, C3, REJEC #### [address] [address] Coding Director: Jasbir Montalvo MD Neutrophil (Seg) 63 % Normal 36-65 [facility] Comment on above: Performed By: #### P HO, CDP, RA, PT, SED, BMPX, FREDA, MG, LD, CRP, FEBC, B12FOL, PTT, C4, CCPAB, FERI, IOCAL, CORTI, CK, C3, REJEC #### [address] [address] Coding Director: Jasbir Montalvo MD NRBC Automated 0.0 per 100 WBC Normal 0.0 [facility] Comment on above: Performed By: #### P HO, CDP, RA, PT, SED, BMPX, FREDA, MG, LD, CRP, FEBC, B12FOL, PTT, C4, CCPAB, FERI, IOCAL, CORTI, CK, C3, REJEC #### [address] [address] Coding Director: Jasbir Montalvo MD Platelet mean volume (Bld) [Entitic vol] 10.0 fL Normal 8.1-13.5 [facility] Comment on above: Performed By: #### P HO, CDP, RA, PT, SED, BMPX, FREDA, MG, LD, CRP, FEBC, B12FOL, PTT, C4, CCPAB, FERI, IOCAL, CORTI, CK, C3, REJEC #### [address] [address] Coding Director: Jasbir Montalvo MD Platelets (Bld) [#/Vol] 214 10*3/uL Normal 138-453 [facility] Comment on above: Performed By: #### P HO, CDP, RA, PT, SED, BMPX, FREDA, MG, LD, CRP, FEBC, B12FOL, PTT, C4, CCPAB, FERI, IOCAL, CORTI, CK, C3, REJEC #### [address] [address] Coding Director: Jasbir Montalvo MD RBC (Bld) [#/Vol] 4.94 10*6/uL Normal 4.21-5.77 [facility] Comment on above: Performed By: #### P HO, CDP, RA, PT, SED, BMPX, FREDA, MG, LD, CRP, FEBC, B12FOL, PTT, C4, CCPAB, FERI, IOCAL, CORTI, CK, C3, REJEC #### [employer] [facility] [place] [address] Coding Director: Jasbir Montalvo MD WBC (Bld) [#/Vol] 10.1 10*3/uL Normal 3.5-11.3 [facility] Comment on above: Performed By: #### P HO, CDP, RA, PT, SED, BMPX, FREDA, MG, LD, CRP, FEBC, B12FOL, PTT, C4, CCPAB, FERI, IOCAL, CORTI, CK, C3, REJEC #### [employer] [address] [place], [place] [id number] Coding Director: Jasbir Montalvo MD [facility] CK [Catalytic activity/Vol] 69 U/L 39 - 308 U/L [facility] CT LUMBAR SPINE WO CONTRASTo n [...] Shanthi Mcdonough MD 11/30/23 Final result Normal [facility] CT THORACIC SPINE WO CONTRAS Ton 11-30-2023 [...] Shanthi Mcdonough MD 11/30/23 Final result Normal [facility] Calcium, Ionicon 11-30-2023 Calcium [Moles/Vol] 1.21 mmol/L Normal 1.13-1.33 [facility] Comment on above: Performed By: #### P HO, CDP, RA, PT, SED, BMPX, FREDA, MG, LD, CRP, FEBC, B12FOL, PTT, C4, CCPAB, FERI, IOCAL, CORTI, CK, C3, REJEC ####[address] [address] [facility] Director: Jasbir Montalvo MD Calcium, Ionizedon Calcium.ionized (Bld) [Moles/Vol] 1.21 mmol/L 1.13 - 1.33 mmol/L [facility] Cortisolon 11-30-2023 Cortisol 15.5 ug/dL Normal 2.7-18.4 [facility] Comment on above: Result Comment: Cortisol Reference Range: AM 6.0-18.4 PM 2.7-10.5 Performed By: #### P HO, CDP, RA, PT, SED, BMPX, FREDA, MG, LD, CRP, FEBC, B12FOL, PTT, C4, CCPAB, FERI, IOCAL, CORTI, CK, C3, REJEC #### [facility] [address] [place] [address] [phone] Coding Director: Jasbir Montalvo MD Cortisol Totalon 11-30-2023 Cortisol [Mass/Vol] 15.5 ug/dL 2.7 - 18 .4 ug/dL [facility] Comment on above: Cortisol Reference Range: AM 6.0-18.4 PM 2.7-10.5 Creatine Kinaseon 11-30-2023 CK [Catalytic activity/Vol] 69 U/L Normal 39-308 [facility] Comment on above: Performed By: #### P HO, CDP, RA, PT, SED, BMPX, FREDA, MG, LD, CRP, FEBC, B12FOL, PTT, C4, CCPAB, FERI, IOCAL, CORTI, CK, C3, REJEC #### [facility] [address] [place] [address] [id number] Coding Director: Jasbir Montalvo MD Ferritinon 11-30-2023 Ferritin [Mass/Vol] 151 ng/mL Normal 30-400 [facility] Comment on above: Performed By: #### P HO, CDP, RA, PT, SED, BMPX, FREDA, MG, LD, CRP, FEBC, B12FOL, PTT, C4, CCPAB, FERI, IOCAL, CORTI, CK, C3, REJEC #### [facility] [address] [place] [address] [id number] Coding Director: Jasbir Montalvo MD Ferritin [Mass/Vol] 151 ng/mL 30 - 400 ng/mL [facility] Glucose,Whole Bloodon 2023 Glucose [Mass/Vol] 231 mg/dL High 75-110 [facility] Glucose [Mass/Vol] 98 mg/dL Normal 75-110 [facility] Glucose [Mass/Vol] 154 mg/dL High 75-110 [facility] Glucose [Mass/Vol] 137 mg/dL High 75-110 [facility] Glucose [Mass/Vol] 55 mg/dL Low 75-110 [facility] Glucose [Mass/Vol] 48 mg/dL Low 75-110 [facility] Comment on above: Result Comment: Evaristo cannon Noted Iron Binding Cap.on 11-30-19 24 % Fe Saturation 24 % Normal 20-55 [facility] Comment on above: Performed By: #### P HO, CDP, RA, PT, SED, BMPX, FREDA, MG, LD, CRP, FEBC, B12FOL, PTT, C4, CCPAB, FERI, IOCAL, CORTI, CK, C3, REJEC #### [employer] [address] [place] [id number] Coding Director: Jasbir Montalvo MD Iron [Mass/Vol] 54 ug/dL Low 59-158 [facility] Comment on above: Performed By: #### P HO, CDP, RA, PT, SED, BMPX, FREDA, MG, LD, CRP, FEBC, B12FOL, PTT, C4, CCPAB, FERI, IOCAL, CORTI, CK, C3, REJEC #### [employer] [address] [place] [id number] Coding Director: Jasbir Montalvo MD Total Fe Binding Cap 224 ug/dL Low 250-450 [facility] Comment on above: Performed By: #### P HO, CDP, RA, PT, SED, BMPX, FREDA, MG, LD, CRP, FEBC, B12FOL, PTT, C4, CCPAB, FERI, IOCAL, CORTI, CK, C3, REJEC #### [employer] [address] [place] [id number] Coding Director: Jasbir Montalvo MD Unbound Fe Bind Cap 170 ug/dL Normal 112-347 [facility] Comment on above: Performed By: #### P HO, CDP, RA, PT, SED, BMPX, FREDA, MG, LD, CRP, FEBC, B12FOL, PTT, C4, CCPAB, FERI, IOCAL, CORTI, CK, C3, REJEC #### [address] [id number] Coding Director: Jasbir Montalvo MD Iron and TIBCon 11-30-2023 Interpretation and review of laboratory results Abnormal [facility] Iron [Mass/Vol] 54 ug/dL Low 59 - 158 ug/dL [facility] Iron binding capacity [Mass/Vol] 224 ug/dL Low 250 - 450 ug/dL [facility] Iron saturation [Mass fraction] 24 % 20 - 55 % [facility] UIBC 170 ug/dL 112 - 347 ug/dL [facility] Lactate Dehydrogenaseon 11-07 LDH [Catalytic activity/Vol] 243 U/L High 135-225 [facility] Comment on above: Performed By: #### P HO, CDP, RA, PT, SED, BMPX, FREDA, MG, LD, CRP, FEBC, B12FOL, PTT, C4, CCPAB, FERI, IOCAL, CORTI, CK, C3, REJEC #### [address] [id number] Coding Director: Jasbir Montalvo MD LDH [Catalytic activity/Vol] 243 U/L High 135 - 225 U/L [facility] Magnesiumon 11-30-2023 Magnesium [Mass/Vol] 2.7 mg/dL High 1.6-2.6 [facility] Comment on above: Performed By: #### P HO, CDP, RA, PT, SED, BMPX, FREDA, MG, LD, CRP, FEBC, B12FOL, PTT, C4, CCPAB, FERI, IOCAL, CORTI, CK, C3, REJEC ####[address] [id number] Lab Director: Jasbir Montalvo MD Magnesium [Mass/Vol] 2.7 mg/dL High 1.6 - 2.6 mg/dL [facility] Myoglobinon 11-30-2023 Myoglobin [Mass/Vol] 59 ng/mL Normal 28-72 [facility] Comment on above: Performed By: #### P HO, CDP, RA, PT, SED, BMPX, FREDA, MG, LD, CRP, FEBC, B12FOL, PTT, C4, CCPAB, FERI, IOCAL, CORTI, CK, C3, REJEC ####[facility] [place] [address] [facility] Director: Jasbir Montalvo MD Myoglobin, Bloodon Myoglobin [Mass/Vol] 59 ng/mL 28 - 72 ng/mL [facility] No Panel Informationon 11-[address] [facility] [address] thoracic spine: M ild dextroscoliotic [...] SOFT TISSUES/RETROPERITONEUM: No paraspinal mass is seen. PN RIS CONSOLIDATED Shanthi Mcdonough MD - 11/30/2023 [...] and degenerative disc changes L3 through S1. [facility] Radiology Study observation (narrative) [facility] Interpretation and review of laboratory results Abnormal [facility] Interpretation and review of laboratory results Abnormal [facility] No Panel InformationOrdered By: Shanthi Mcdonough on 11-30-2023 [facility] [employer] Phone: POC Glucose Fingerstickon Glucose [Mass/Vol] 231 mg/dL High 75 - 110 mg/dL [facility] Interpretation and review of laboratory results Abnormal [facility] Glucose [Mass/Vol] 98 mg/dL 75 - 110 mg/dL [facility] Glucose [Mass/Vol] 154 mg/dL High 75 - 110 mg/dL [facility] Interpretation and review of laboratory results Abnormal [facility] Glucose [Mass/Vol] 137 mg/dL High 75 - 110 mg/dL [facility] Interpretation and review of laboratory results Abnormal [facility] Glucose [Mass/Vol] 55 mg/dL Low 75 - 110 mg/dL [facility] Interpretation and review of laboratory results Abnormal [facility] Glucose [Mass/Vol] 48 mg/dL Low 75 - 110 mg/dL [facility] Comment on above: Critical Noted Interpretation and review of laboratory results Abnormal [facility] PTon 11-30-2023 INR Coag (PPP) [Relative time] 3.0 {INR} Normal [facility] Comment on above: Result Comment: Therapeutic Range: Moderate Anticoagulant Intensity: INR = 2.0-3.0 High Anticoagulant Intensity: INR = 2.5-3.5 Performed By: #### P HO, CDP, RA, PT, SED, BMPX, FREDA, MG, LD, CRP, FEBC, B12FOL, PTT, C4, CCPAB, FERI, IOCAL, CORTI, CK, C3, REJEC ####[address] [id number] [facility] Director: Jasbir Montalvo MD PT Coag (PPP) [Time] 30.0 s High 11.7-14.9 [facility] Comment on above: Performed By: #### P HO, CDP, RA, PT, SED, BMPX, FREDA, MG, LD, CRP, FEBC, B12FOL, PTT, C4, CCPAB, FERI, IOCAL, CORTI, CK, C3, REJEC ####[place] [id number] [facility] Director: Jasbir Montalvo MD Phosphoruson 11-30-2023 Phosphate [Mass/Vol] 3.5 mg/dL 2.5 - 4.5 mg/dL [facility] Phosphorus, Inorg.on 024 Phosphorus, Inorg. 3.5 mg/dL Normal 2.5-4.5 [facility] Comment on above: Performed By: #### P HO, CDP, RA, PT, SED, BMPX, FREDA, MG, LD, CRP, FEBC, B12FOL, PTT, C4, CCPAB, FERI, IOCAL, CORTI, CK, C3, REJEC ####[place] [id number] lab Director: Jasbir Montalvo MD Protime-INRon 11-30-2023 INR Coag (PPP) [Relative time] 3.0 {INR} [facility] Comment on above: Therapeutic Range: Moderate Anticoagulant Intensity: INR = 2.0-3.0 High Anticoagulant Intensity: INR = 2.5-3.5 PT Coag (PPP) [Time] 30.0 s High [facility] RA Screenon 11-30-2023 RA Screen <10 Normal <14 [facility] Comment on above: Performed By: #### P HO, CDP, RA, PT, SED, BMPX, FREDA, MG, LD, CRP, FEBC, B12FOL, PTT, C4, CCPAB, FERI, IOCAL, CORTI, CK, C3, REJEC ####[facility] [id number] [place], [place] [id number] Lab Director: Jasbir Montalvo MD RHEUMATOID FACTORon 11-30-19 24 Rheumatoid factor Nephelometry Qn (S) <10 NINF [facility] Sedimentation Rateon Sedimentation Rate 18 mm/Hr Normal 0-20 [facility] Comment on above: Performed By: #### P HO, CDP, RA, PT, SED, BMPX, FREDA, MG, LD, CRP, FEBC, B12FOL, PTT, C4, CCPAB, FERI, IOCAL, CORTI, CK, C3, REJEC ####[facility] [address] [place] [id number] [facility] Director: Jasbir Montalvo MD ESR Photometric method (Bld) [Velocity] 18 [facility] Specimen Rejectionon 024 Reason for rejection Unable to perform testing: Specimen quantity not sufficient. Normal [facility] Comment on above: Performed By: #### P HO, CDP, RA, PT, SED, BMPX, FREDA, MG, LD, CRP, FEBC, B12FOL, PTT, C4, CCPAB, FERI, IOCAL, CORTI, CK, C3, REJEC #### [facility] [employer] [facility] [place] [address] Coding Director: Jasbir Montalvo MD Source of sample .BLOOD Normal [facility] Comment on above: Performed By: #### P HO, CDP, RA, PT, SED, BMPX, FREDA, MG, LD, CRP, FEBC, B12FOL, PTT, C4, CCPAB, FERI, IOCAL, CORTI, CK, C3, REJEC #### [facility] [employer] [address] [place] [id number] Coding Director: Jasbir Montalvo MD Test ordered AALDO Normal [facility] Comment on above: Performed By: #### P HO, CDP, RA, PT, SED, BMPX, FREDA, MG, LD, CRP, FEBC, B12FOL, PTT, C4, CCPAB, FERI, IOCAL, CORTI, CK, C3, REJEC #### [address] [id number] Coding Director: Jasbir Montalvo MD T. PALLIDUM ABon 11-30-2023 T. pallidum Ab IA Ql (S) Non-Reactive NONREACTIVE [facility] Comment on above: T. pallidum antibodies are not detected. There is no serological evidence of infection with T. pallidum (early primary syphilis cannot be excluded). Retest in 2-4 weeks if syphilis is clinically suspect. [facility] T.pallidum Ab Screenon 11-30 T.pallidum Ab Screen Non-Reactive Normal NR [facility] Comment on above: Result Comment: T. pallidum antibodies are not detected. There is no serological evidence of infection with T. pallidum (early primary syphilis cannot be excluded). Retest in 2-4 weeks if syphilis is clinically suspect. Performed By: #### P HO, CDP, RA, PT, SED, BMPX, FREDA, MG, LD, CRP, FEBC, B12FOL, PTT, C4, CCPAB, FERI, IOCAL, CORTI, CK, C3, REJEC #### [facility] [employer] [address] [place] [id number] Coding Director: Jasbir Montalvo MD TSH w/reflex to FT4on 2023 Thyroid Stim. Horm. 0.36 uIU/mL Normal 0.30-5.00 [facility] Comment on above: Performed By: #### P HO, CDP, RA, PT, SED, BMPX, FREDA, MG, LD, CRP, FEBC, B12FOL, PTT, C4, CCPAB, FERI, IOCAL, CORTI, CK, C3, REJEC #### [address] [address] Coding Director: Jasbir Montalvo MD TSH with Reflexon 11-30-2023 TSH Qn 0.36 m[IU]/L [facility] Venous Blood Gaseson 024 Body Temp. 37.0 Normal [facility] Comment on above: Performed By: #### P HO, CDP, RA, PT, SED, BMPX, FREDA, MG, LD, CRP, FEBC, B12FOL, PTT, C4, CCPAB, FERI, IOCAL, CORTI, CK, C3, REJEC #### [address] [address] Coding Director: Jasbir Montalvo MD Carboxy Hgb 1.6 % Normal 0-5 [facility] Comment on above: Result Comment: Reference Range: Non-Smokers 0-2% Average Smoker 2-4% Heavy Smoker <10% Performed By: #### P HO, CDP, RA, PT, SED, BMPX, FREDA, MG, LD, CRP, FEBC, B12FOL, PTT, C4, CCPAB, FERI, IOCAL, CORTI, CK, C3, REJEC #### [place] [id number] Coding Director: Jasbir Montalvo MD FIO2 INFORMATION NOT PROVIDED Normal [facility] Comment on above: Performed By: #### P HO, CDP, RA, PT, SED, BMPX, FREDA, MG, LD, CRP, FEBC, B12FOL, PTT, C4, CCPAB, FERI, IOCAL, CORTI, CK, C3, REJEC #### [address] [address] Coding Director: Jasbir Montalvo MD HCO3 (Bld) [Moles/Vol] 26.1 mmol/L Normal 24-30 [facility] Comment on above: Performed By: #### P HO, CDP, RA, PT, SED, BMPX, FREDA, MG, LD, CRP, FEBC, B12FOL, PTT, C4, CCPAB, FERI, IOCAL, CORTI, CK, C3, REJEC #### [address] [address] Coding Director: Jasbir Montalvo MD Negative Base Excess 1.1 mmol/L Normal 0.0-2.0 [facility] Comment on above: Performed By: #### P HO, CDP, RA, PT, SED, BMPX, FREDA, MG, LD, CRP, FEBC, B12FOL, PTT, C4, CCPAB, FERI, IOCAL, CORTI, CK, C3, REJEC #### [address] [address] Coding Director: Jasbir Montalvo MD Oxygen saturation in Blood 84.3 % Normal 60.0-85.0 [facility] Comment on above: Performed By: #### P HO, CDP, RA, PT, SED, BMPX, FREDA, MG, LD, CRP, FEBC, B12FOL, PTT, C4, CCPAB, FERI, IOCAL, CORTI, CK, C3, REJEC #### [address] [address] Coding Director: Jasbir Montalvo MD pCO2 55.2 mm Hg High 39-55 [facility] Comment on above: Performed By: #### P HO, CDP, RA, PT, SED, BMPX, FREDA, MG, LD, CRP, FEBC, B12FOL, PTT, C4, CCPAB, FERI, IOCAL, CORTI, CK, C3, REJEC #### [address] [address] Coding Director: Jasbir Montalvo MD pH (Bld) 7.297 [pH] Low 7.320-7.420 [facility] Comment on above: Performed By: #### P HO, CDP, RA, PT, SED, BMPX, FREDA, MG, LD, CRP, FEBC, B12FOL, PTT, C4, CCPAB, FERI, IOCAL, CORTI, CK, C3, REJEC #### [facility] [employer] [facility] [place], [place] [id number] Coding Director: Jasbir Montalvo MD pO2 55.2 mm Hg High 30-50 [facility] Comment on above: Performed By: #### P HO, CDP, RA, PT, SED, BMPX, FREDA, MG, LD, CRP, FEBC, B12FOL, PTT, C4, CCPAB, FERI, IOCAL, CORTI, CK, C3, REJEC #### [facility] [employer] [facility] [place], [place] [id number] Coding Director: Jasbir Montalvo MD Vitamin B12 & Folateon 11-30 Cobalamin (Vitamin B12) [Mass/Vol] 397 pg/mL 232 - 1245 pg/mL [facility] Folate [Mass/Vol] 6.2 ng/mL 4.8 - PINF ng/mL [facility] CT HEAD WO CONTRASTon 2023 CT [...] Nathaly Oh MD 11/29/23 Final result Normal [facility] Comp Metabolic Pr/rfx MGon 0 11-29-2023 AST [Catalytic activity/Vol] 18 U/L Normal <40 [facility] Comment on above: Performed By: #### P HO, CDP, RA, PT, SED, BMPX, FREDA, MG, LD, CRP, FEBC, B12FOL, PTT, C4, CCPAB, FERI, IOCAL, CORTI, CK, C3, REJEC #### [employer] [address] [place] [address] Coding Director: Jasbir Montalvo MD Albumin [Mass/Vol] 3.4 g/dL Low 3.5-5.2 [facility] Comment on above: Performed By: #### P HO, CDP, RA, PT, SED, BMPX, FREAD, MG, LD, CRP, FEBC, B12FOL, PTT, C4, CCPAB, FERI, IOCAL, CORTI, CK, C3, REJEC #### [employer] [address] [place] [address] Coding Director: Jasbir Montalvo MD Albumin/Glob Ratio 1.1 Normal 1.0-2.5 [facility] Comment on above: Performed By: #### P HO, CDP, RA, PT, SED, BMPX, FREDA, MG, LD, CRP, FEBC, B12FOL, PTT, C4, CCPAB, FERI, IOCAL, CORTI, CK, C3, REJEC #### [address] [address] Coding Director: Jasbir Montalvo MD Alkaline Phos 93 U/L Normal 40-129 [facility] Comment on above: Performed By: #### P HO, CDP, RA, PT, SED, BMPX, FREDA, MG, LD, CRP, FEBC, B12FOL, PTT, C4, CCPAB, FERI, IOCAL, CORTI, CK, C3, REJEC #### [address] [address] Coding Director: Jasbir Montalvo MD ALT [Catalytic activity/Vol] 14 U/L Normal 5-41 [facility] Comment on above: Performed By: #### P HO, CDP, RA, PT, SED, BMPX, FREDA, MG, LD, CRP, FEBC, B12FOL, PTT, C4, CCPAB, FERI, IOCAL, CORTI, CK, C3, REJEC #### [address] [address] Coding Director: Jasbir Montalvo MD Anion gap [Moles/Vol] 11 mmol/L Normal 9-17 [facility] Comment on above: Performed By: #### P HO, CDP, RA, PT, SED, BMPX, FREDA, MG, LD, CRP, FEBC, B12FOL, PTT, C4, CCPAB, FERI, IOCAL, CORTI, CK, C3, REJEC #### [address] [address] Coding Director: Jasbir Montalvo MD Bilirubin [Mass/Vol] 0.3 mg/dL Normal 0.3-1.2 [facility] Comment on above: Performed By: #### P HO, CDP, RA, PT, SED, BMPX, FREDA, MG, LD, CRP, FEBC, B12FOL, PTT, C4, CCPAB, FERI, IOCAL, CORTI, CK, C3, REJEC #### [address] [address] Coding Director: Jasbir Montalvo MD Calcium [Mass/Vol] 8.9 mg/dL Normal 8.6-10.4 [facility] Comment on above: Performed By: #### P HO, CDP, RA, PT, SED, BMPX, FREDA, MG, LD, CRP, FEBC, B12FOL, PTT, C4, CCPAB, FERI, IOCAL, CORTI, CK, C3, REJEC #### [address] [address] Coding Director: Jasbir Montalvo MD Chloride [Moles/Vol] 109 mmol/L High 98-107 [facility] Comment on above: Performed By: #### P HO, CDP, RA, PT, SED, BMPX, FREDA, MG, LD, CRP, FEBC, B12FOL, PTT, C4, CCPAB, FERI, IOCAL, CORTI, CK, C3, REJEC #### [address] [address] Coding Director: Jasbir Montalvo MD CO2 [Moles/Vol] 24 mmol/L Normal 20-31 [facility] Comment on above: Performed By: #### P HO, CDP, RA, PT, SED, BMPX, FREDA, MG, LD, CRP, FEBC, B12FOL, PTT, C4, CCPAB, FERI, IOCAL, CORTI, CK, C3, REJEC #### [address] [address] Coding Director: Jasbir Montalvo MD Creatinine [Mass/Vol] 1.6 mg/dL High 0.7-1.2 [facility] Comment on above: Performed By: #### P HO, CDP, RA, PT, SED, BMPX, FREDA, MG, LD, CRP, FEBC, B12FOL, PTT, C4, CCPAB, FERI, IOCAL, CORTI, CK, C3, REJEC #### [address] [address] Coding Director: Jasbir Montalvo MD GFR/1.73 sq M.predicted among non-blacks MDRD (S/P/Bld) [Vol rate/Area] 48 mL/min/{1.73_m2} Low >60 [facility] Comment on above: Result Comment: These [...] FERI, IOCAL, CORTI, CK, C3, REJEC #### [address] [address] Coding Director: Jasbir Montalvo MD Glucose [Mass/Vol] 151 mg/dL High 70-99 [facility] Comment on above: Performed By: #### P HO, CDP, RA, PT, SED, BMPX, FREDA, MG, LD, CRP, FEBC, B12FOL, PTT, C4, CCPAB, FERI, IOCAL, CORTI, CK, C3, REJEC #### [address] [id number] Coding Director: Jasbir Montalvo MD Potassium [Moles/Vol] 4.1 mmol/L Normal 3.7-5.3 [facility] Comment on above: Performed By: #### P HO, CDP, RA, PT, SED, BMPX, FREDA, MG, LD, CRP, FEBC, B12FOL, PTT, C4, CCPAB, FERI, IOCAL, CORTI, CK, C3, REJEC #### [address] [place] [place], [place] [id number] Coding Director: Jasbir Montalvo MD Protein [Mass/Vol] 6.5 g/dL Normal 6.4-8.3 [facility] Comment on above: Performed By: #### P HO, CDP, RA, PT, SED, BMPX, FREDA, MG, LD, CRP, FEBC, B12FOL, PTT, C4, CCPAB, FERI, IOCAL, CORTI, CK, C3, REJEC #### [facility] [employer] [address] [place] [id number] Coding Director: Jasbir Montalvo MD Sodium [Moles/Vol] 144 mmol/L Normal 135-144 [facility] Comment on above: Performed By: #### P HO, CDP, RA, PT, SED, BMPX, FREDA, MG, LD, CRP, FEBC, B12FOL, PTT, C4, CCPAB, FERI, IOCAL, CORTI, CK, C3, REJEC #### [facility] [employer] [address] [place] [address] Coding Director: Jasbir Montalvo MD Urea nitrogen [Mass/Vol] 36 mg/dL High 05-28 [facility] Comment on above: Performed By: #### P HO, CDP, RA, PT, SED, BMPX, FREDA, MG, LD, CRP, FEBC, B12FOL, PTT, C4, CCPAB, FERI, IOCAL, CORTI, CK, C3, REJEC #### [address] [id number] Coding Director: Jasbir Montalvo MD Comprehensive Metabolic Pane l w/ Reflex to MGon 11-29-2023 Albumin [Mass/Vol] 3.4 g/dL Low 3.5 - 5.2 g/dL [facility] Albumin/Globulin [Mass ratio] 1.1 {ratio} 1.0 - 2.5 [facility] [employer] ALP [Catalytic activity/Vol] 93 U/L 40 - 129 U/L [facility] ALT [Catalytic activity/Vol] 14 U/L 5 - 41 U/L [facility] Anion gap [Moles/Vol] 11 mmol/L 9 - 17 mmol/L [facility] AST [Catalytic activity/Vol] 18 U/L NINF - 40 U/L [facility] Bilirubin [Mass/Vol] 0.3 mg/dL 0.3 - 1.2 mg/dL [facility] Calcium [Mass/Vol] 8.9 mg/dL 8.6 - 10. 4 mg/dL [facility] Chloride [Moles/Vol] 109 mmol/L High 98 - 107 mmol/L [facility] CO2 [Moles/Vol] 24 mmol/L 20 - 31 mmol/L [facility] Creatinine [Mass/Vol] 1.6 mg/dL High 0.7 - 1.2 mg/dL [facility] GFR/1.73 sq M.predicted MDRD (S/P/Bld) [Vol rate/Area] 48 mL/min/{1.73_m2} Low - PINF [facility] Comment on above: These results are [...] 151 mg/dL High 70 - 99 mg/dL [facility] Interpretation and review of laboratory results Abnormal [facility] Potassium [Moles/Vol] 4.1 mmol/L 3.7 - 5.3 mmol/L [facility] Protein [Mass/Vol] 6.5 g/dL 6.4 - 8.3 g/dL [facility] Sodium [Moles/Vol] 144 mmol/L 135 - 144 mmol/L [facility] Urea nitrogen [Mass/Vol] 36 mg/dL High 8 - 23 mg/dL [facility] Glucose, Whole Bloodon 11-29 Glucose [Mass/Vol] 169 mg/dL High 74-100 [facility] Glucose [Mass/Vol] 236 mg/dL High 74-100 [facility] Glucose [Mass/Vol] 116 mg/dL High 74-100 [facility] Glucose [Mass/Vol] 123 mg/dL High 74-100 [facility] Glucose [Mass/Vol] 53 mg/dL Low 74-100 [facility] Glucose [Mass/Vol] 62 mg/dL Low 74-100 [facility] Glucose,Whole Bloodon 2023 Glucose [Mass/Vol] 161 mg/dL High 75-110 [facility] POC Glucose Fingerstickon Glucose [Mass/Vol] 161 mg/dL High 75 - 110 mg/dL [facility] Interpretation and review of laboratory results Abnormal [facility] XR CHEST (2 VW)on 11-29-2023 XR [...] Nathaly Oh MD 11/29/23 Final result Normal [facility] RADHA Screen w/reflexon 2023 RADHA Screen Negative Normal [facility] Comment on above: Performed By: #### A XUAN, GLYHGB, CRP, SED, PE, CDP, TSHX, HIVCMB, CK, ANAX, CP, B12FOL, VD25, AHCV #### [place] [id number] Coding Director: Jasbir Montalvo MD #### ASHVIN DUARTERP #### [facility] [address], [place] [id number] Coding Director: Samuel Olivia MD Anti-dsDNA 6.0 IU/mL Normal <10.0 [facility] Comment on above: Result Comment: Reference Range: <10.0 Negative 10.0-15.0 Equivocal >15.0 Positive Performed By: #### A XUAN, GLYHGB, CRP, SED, PE, CDP, TSHX, HIVCMB, CK, ANAX, CP, B12FOL, VD25, AHCV #### [place] [address] Coding Director: Jasbir Montalvo MD #### GERALD, ALYARP #### [facility] [address] [place] [address] Coding Director: Samuel Olivia MD XUAN Screen 0.2 U/mL Normal <0.7 [facility] Comment on above: Result Comment: Reference Range: <0.7 Negative 0.7-1.0 Equivocal >1.0 Positive XUAN Screen includes U1RNP,RNP70,Sm,Ro(SS-A),La(SS-B),CENP,Scl-70,Carolina-1 Performed By: #### A XUAN, GLYHGB, CRP, SED, PE, CDP, TSHX, HIVCMB, CK, ANAX, CP, B12FOL, VD25, AHCV #### [address] [id number] Coding Director: Jasbir Montalvo MD #### PACHECO DUARTE #### [address] [address] Coding Director: Samuel Olivia MD Ammoniaon 11-28-2023 Ammonia (P) [Mass/Vol] ug/dL Low 16-60 [facility] Comment on above: Performed By: #### A MON ####[facility] [place] [address] Lab Director: Marlon Mack MD Anti-Extract Nuc Agon 2023 Anti-RNP70 0.4 U/mL Normal <7.0 [facility] Comment on above: Result Comment: Reference Range: <7.0 Negative 7.0-10.0 Equivocal >10.0 Positive Performed By: #### A XUAN, GLYHGB, CRP, SED, PE, CDP, TSHX, HIVCMB, CK, ANAX, CP, B12FOL, VD25, AHCV #### [address] [address] Coding Director: Jasbir oMntalvo MD #### PACHECO DUARTE #### [facility] [address] [place] [address] Coding Director: Samuel Olivia MD Anti-Scleroderma <0.6 Normal <7.0 [facility] Comment on above: Result Comment: Reference Range: <7.0 Negative 7.0-10.0 Equivocal >10.0 Positive Performed By: #### A XUAN, GLYHGB, CRP, SED, PE, CDP, TSHX, HIVCMB, CK, ANAX, CP, B12FOL, VD25, AHCV #### [address] [id number] Coding Director: Jasbir Montalvo MD #### PACHECO DUATRE #### [facility] [address] [place] [address] Coding Director: Samuel Olivia MD Anti-Sm 2.0 U/mL Normal <7.0 [facility] Comment on above: Result Comment: Reference Range: <7.0 Negative 7.0-10.0 Equivocal >10.0 Positive Performed By: #### A XUAN, GLYHGB, CRP, SED, PE, CDP, TSHX, HIVCMB, CK, ANAX, CP, B12FOL, VD25, AHCV #### [address] [address] Coding Director: Jasbir Montalvo MD #### PACHECO DUARTE #### [address] [address] Coding Director: Samuel Olivia MD SSA 0.5 U/mL Normal <7.0 [facility] Comment on above: Result Comment: Reference Range: <7.0 Negative 7.0-10.0 Equivocal >10.0 Positive Performed By: #### A XUAN, GLYHGB, CRP, SED, PE, CDP, TSHX, HIVCMB, CK, ANAX, CP, B12FOL, VD25, AHCV #### [place] [id number] Coding Director: Jasbir Montalvo MD #### ASHVIN DUARTERP #### [facility] [address] [place] [address] Coding Director: Samuel Olivia MD SSB <0.3 Normal <7.0 [facility] Comment on above: Result Comment: Reference Range: <7.0 Negative 7.0-10.0 Equivocal >10.0 Positive Performed By: #### A XUAN, GLYHGB, CRP, SED, PE, CDP, TSHX, HIVCMB, CK, ANAX, CP, B12FOL, VD25, AHCV #### [facility] [address] [place], [place] [id number] Coding Director: Jasbir Montalvo MD #### GERALD, ALYARP #### [facility] [address] [place] [address] Coding Director: Samuel Olivia MD Basic Metabolic Profon 11-28 Anion gap [Moles/Vol] 9 mmol/L Normal 9-17 [facility] Comment on above: Performed By: #### B MP, MG, CDP, TROPI #### [address] [place] [address] Coding Director: Marlon Mack MD BUN/CRE Ratio 16 Normal 9- [facility] Comment on above: Performed By: #### B MP, MG, CDP, TROPI #### [address] [place] [address] Coding Director: Marlon Mack MD Calcium [Mass/Vol] 9.1 mg/dL Normal 8.6-10.4 [facility] Comment on above: Performed By: #### B MP, MG, CDP, TROPI #### [address] [place] [address] Coding Director: Marlon Mack MD Chloride [Moles/Vol] 107 mmol/L Normal 98-107 [facility] Comment on above: Performed By: #### B MP, MG, CDP, TROPI #### [address] [place] [address] Coding Director: Marlon Mack MD CO2 [Moles/Vol] 27 mmol/L Normal 20-31 [facility] Comment on above: Performed By: #### B MP, MG, CDP, TROPI #### [facility] [address] [place] [address] [place] [address] Coding Director: Marlon Mack MD Creatinine [Mass/Vol] 1.8 mg/dL High 0.7-1.2 [facility] Comment on above: Performed By: #### B MP, MG, CDP, TROPI #### [facility] [address] [place] [address] Coding Director: Marlon Mack MD GFR/1.73 sq M.predicted among non-blacks MDRD (S/P/Bld) [Vol rate/Area] 42 mL/min/{1.73_m2} Low >60 [facility] Comment on above: Result Comment: These [...] #### B MP, MG, CDP, TROPI #### [facility] [address] [place] [address] [place] [address] Coding Director: Marlon Mack MD Glucose [Mass/Vol] 77 mg/dL Normal 70-99 [facility] Comment on above: Performed By: #### B MP, MG, CDP, TROPI #### [facility] [address] [place] [address] Coding Director: Marlon Mack MD Potassium [Moles/Vol] 3.9 mmol/L Normal 3.7-5.3 [facility] Comment on above: Performed By: #### B MP, MG, CDP, TROPI #### [address] [place] [address] Coding Director: Marlon Mack MD Sodium [Moles/Vol] 143 mmol/L Normal 135-144 [facility] Comment on above: Performed By: #### B MP, MG, CDP, TROPI #### [facility] [address] [place], [place] [id number] Coding Director: Marlon Mack MD Urea nitrogen [Mass/Vol] 29 mg/dL High - [facility] Comment on above: Performed By: #### B MP, MG, CDP, TROPI #### [address] [place], [facility] Coding Director: Marlon Mack MD CBC with Diffon 11-28-2023 Abs. Basophil 0.06 k/uL Normal 0.00-0.20 [facility] Comment on above: Performed By: #### B MP, MG, CDP, TROPI #### [address] [place], [facility] Coding Director: Marlon Mack MD Abs.Imm.Granulocyte 0.04 k/uL Normal 0.00-0.30 [facility] Comment on above: Performed By: #### B MP, MG, CDP, TROPI #### [address] [place], [place] [address] Coding Director: Marlon Mack MD Abs.Neutrophil (Seg) 6.33 k/uL Normal 1.50-8.10 [facility] Comment on above: Performed By: #### B MP, MG, CDP, TROPI #### [address] [place], [place] [address] Coding Director: Marlon Mack MD Basophils/100 WBC (Bld) 1 % Normal 0-2 [facility] Comment on above: Performed By: #### B MP, MG, CDP, TROPI #### [address] [place], [facility] Coding Director: Marlon Mack MD Eosinophils (Bld) [#/Vol] 0.25 10*3/uL Normal 0.00-0.44 [facility] Comment on above: Performed By: #### B MP, MG, CDP, TROPI #### [facility] [address] [place], [place] [id number] Coding Director: Marlon Mack MD Eosinophils/100 WBC (Bld) 3 % Normal 1-4 [facility] Comment on above: Performed By: #### B MP, MG, CDP, TROPI #### [facility] [address] [place] [address] Coding Director: Marlon Mack MD Immature granulocytes/100 WBC (Bld) 0 % Normal 0 [facility] Comment on above: Performed By: #### B MP, MG, CDP, TROPI #### [address] [place] [address] Coding Director: Marlon Mack MD Lymphocytes (Bld) [#/Vol] 2.23 10*3/uL Normal 1.10-3.70 [facility] Comment on above: Performed By: #### B MP, MG, CDP, TROPI #### [address] [place] [address] Coding Director: Marlon Mack MD Lymphocytes/100 WBC (Bld) 23 % Low 24-43 [facility] Comment on above: Performed By: #### B MP, MG, CDP, TROPI #### [address] [place] [address] Coding Director: Marlon Mack MD Monocytes (Bld) [#/Vol] 0.64 10*3/uL Normal 0.10-1.20 [facility] Comment on above: Performed By: #### B MP, MG, CDP, TROPI #### [address] [place] [address] Coding Director: Marlon Mack MD Monocytes/100 WBC (Bld) 7 % Normal 3-12 [facility] Comment on above: Performed By: #### B MP, MG, CDP, TROPI #### [facility] [address] [place] [address] [place], [place] [id number] Coding Director: Marlon Mack MD Neutrophil (Seg) 66 % High 36-65 [facility] Comment on above: Performed By: #### B MP, MG, CDP, TROPI #### [address] [place], [place] [id number] Coding Director: Marlon Mack MD Erythrocyte distribution width (RBC) [Ratio] 14.0 % Normal 11.8-14.4 [facility] Comment on above: Performed By: #### B MP, MG, CDP, TROPI #### [address] [place], [place] [id number] Coding Director: Marlon Mack MD Hematocrit (Bld) [Volume fraction] 48.5 % Normal 40.7-50.3 [facility] Comment on above: Performed By: #### B MP, MG, CDP, TROPI #### [address] [place], [place] [id number] Coding Director: Marlon Mack MD Hemoglobin (Bld) [Mass/Vol] 15.9 g/dL Normal 13.0-17.0 [facility] Comment on above: Performed By: #### B MP, MG, CDP, TROPI #### [address] [place], [place] [id number] Coding Director: Marlon Mack MD MCH (RBC) [Entitic mass] 31.2 pg Normal 25.2-33.5 [facility] Comment on above: Performed By: #### B MP, MG, CDP, TROPI #### [address] [place], [place] [id number] Coding Director: Marlon Mack MD MCHC (RBC) [Mass/Vol] 32.8 g/dL Normal 28.4-34.8 [facility] Comment on above: Performed By: #### B MP, MG, CDP, TROPI #### [facility] [address] [place] [address] Coding Director: Marlon Mack MD MCV (RBC) [Entitic vol] 95.3 fL Normal 82.6-102.9 [facility] Comment on above: Performed By: #### B MP, MG, CDP, TROPI #### [address] [place] [address] Coding Director: Marlon Mack MD NRBC Automated 0.0 per 100 WBC Normal 0.0 [facility] Comment on above: Performed By: #### B MP, MG, CDP, TROPI #### [address] [place] [address] Coding Director: Marlon Mack MD Platelet mean volume (Bld) [Entitic vol] 9.9 fL Normal 8.1-13.5 [facility] Comment on above: Performed By: #### B MP, MG, CDP, TROPI #### [address] [place], [id number] Coding Director: Marlon Mack MD Platelets (Bld) [#/Vol] 233 10*3/uL Normal 138-453 [facility] Comment on above: Performed By: #### B MP, MG, CDP, TROPI #### [address] [place], [id number] Coding Director: Marlon Mack MD RBC (Bld) [#/Vol] 5.09 10*6/uL Normal 4.21-5.77 [facility] Comment on above: Performed By: #### B MP, MG, CDP, TROPI #### [address] [place] [address] Coding Director: Marlon Mack MD WBC (Bld) [#/Vol] 9.2 10*3/uL Normal 3.5-11.3 [facility] Comment on above: Performed By: #### B MP, MG, CDP, TROPI #### [facility] [address] [place] [address] Coding Director: Marlon Mack MD Glucose, Whole Bloodon 11-28 Glucose [Mass/Vol] 115 mg/dL High 74-100 [facility] Glucose [Mass/Vol] 81 mg/dL Normal 74-100 [facility] Magnesiumon 11-28-2023 Magnesium [Mass/Vol] 2.5 mg/dL Normal 1.6-2.6 [facility] Comment on above: Performed By: #### B MP, MG, CDP, TROPI #### [facility] [address] [place] [address] [address] Coding Director: Marlon Mack MD Myasthenia Grav Pnlon 2023 Acetylchol Bind Ab 0.0 nmol/L Normal 0.0-0.4 [facility] Comment on above: Result Comment: (NOT E) [...] developed and its performance characteristics determined by [facility]. It has not been cleared or approved by the [place] Food and Drug Administration. This test was performed in a CLIA certified laboratory and is intended for clinical purposes. Performed By: #### A XUAN, GLYHGB, CRP, SED, PE, CDP, TSHX, HIVCMB, CK, ANAX, CP, B12FOL, VD25, AHCV #### [facility] [employer] [facility] [place], [place] [id number] Coding Director: Jasbir Montalvo MD #### PACHECO DUARTE #### [address] [address] Coding Director: Samuel Olivia MD Acetylchol Block Ab 0 % Normal 0-26 [facility] Comment on above: Result Comment: (NOT E) [...] developed and its performance characteristics determined by [facility]. It has not been cleared or approved by the [place] Food and Drug Administration. This test was performed in a CLIA certified laboratory and is intended for clinical purposes. Performed By: #### A XUNA, GLYHGB, CRP, SED, PE, CDP, TSHX, HIVCMB, CK, ANAX, CP, B12FOL, VD25, AHCV #### [facility] [place], [place] [id number] Coding Director: Jasbir Montalvo MD ###PACHECO HAN #### [address] [address] Coding Director: Samuel Olivia MD Striated Musc Ab IgG <1:40 Normal <1:40 [facility] Comment on above: Result Comment: (NOT E) [...] developed and its performance characteristics determined by [facility]. It has not been cleared or approved by the US Food and Drug Administration. This test was performed in a CLIA certified laboratory and is intended for clinical purposes. Performed By: #### A XUAN, GLYHGB, CRP, SED, PE, CDP, TSHX, HIVCMB, CK, ANAX, CP, B12FOL, VD25, AHCV #### [facility] [address] [place], [place] [id number] Coding Director: Jasbir Montalvo MD #### PACHECO DUARTE #### [facility] [address] [place] [address] Coding Director: Samuel Olivia MD Titin Antibody 0.35 IV Normal 0.00-0.45 [facility] Comment on above: Result Comment: (NOT E) [...] developed and its performance characteristics determined by [facility]. It has not been cleared or approved by the US Food and Drug Administration. This test was performed in a CLIA certified laboratory and is intended for clinical purposes. Performed By: [facility] [address] [place] [address] [employer]: Uriah Prasad MD, PhD CLIA Number: [id number] Performed By: #### A XUAN, GLYHGB, CRP, SED, PE, CDP, TSHX, HIVCMB, CK, ANAX, CP, B12FOL, VD25, AHCV #### [address] [place] [address] Coding Director: Jasbir Montalvo MD #### AMGE, ALYARP #### [facility] [address] [place], [place] [id number] Coding Director: Samuel Olivia MD Thyroid Stim. Horm.on 2023 Thyroid Stim. Horm. 0.43 uIU/mL Normal 0.30-5.00 [facility] Comment on above: Performed By: #### T SH #### [address] [place] [address] Coding Director: Marlon Mack MD Troponinon 11-28-2023 Troponin, High Sens 25 ng/L High 022 [facility] Comment on above: Result Comment: High Sensitivity Troponin values cannot be compared with other Troponin methodologies. Performed By: #### T ROPI #### [address] [place] [address] Coding Director: Marlon Mack MD Troponin, High Sens 24 ng/L High 0 [facility] Comment on above: Result Comment: High Sensitivity Troponin values cannot be compared with other Troponin methodologies. Performed By: #### B MP, MG, CDP, TROPI #### [address] [place] [address] Coding Director: Marlon Mack MD Lyme Dis Rflex Pnlon 024 B burgdorferi Abs, Total 0.37 IV Normal <=0.90 [facility] Comment on above: Result Comment: (NOT E) [...] antibodies to B. burgdorferi detected. Performed By: [facility] [address] [place] [address] [employer]: Uriah Prasad MD, PhD CLIA Number: [id number] Performed By: #### A XUAN, GLYHGB, CRP, SED, PE, CDP, TSHX, HIVCMB, CK, ANAX, CP, B12FOL, VD25, AHCV #### [address] [address] Coding Director: Jasbir Montalvo MD #### PACHECO DUARTE #### [address] [address] Coding Director: Samuel Olivia MD Prot. Electroph, Blon 2023 Pathologist Review: Reviewed by patholog ist: Shirley Fernando M.D. Normal [facility] Comment on above: Performed By: #### A XUAN, GLYHGB, CRP, SED, PE, CDP, TSHX, HIVCMB, CK, ANAX, CP, B12FOL, VD25, AHCV #### [address] [address] Coding Director: Jasbir Montalvo MD #### PACHECO DUARTE #### [address] [address] Coding Director: Samuel Olivia MD Prot. Elect-Interp NORMAL ELECTROPHORET IC PATTERN Normal [facility] Comment on above: Performed By: #### A XUAN, GLYHGB, CRP, SED, PE, CDP, TSHX, HIVCMB, CK, ANAX, CP, B12FOL, VD25, AHCV #### [address] [id number] Coding Director: Jasbir Montalvo MD #### PACHECO DUARTE #### [facility] [address] [place] [address] Coding Director: Samuel Olivia MD B12/Folate Panelon Folic Acid 7.4 ng/mL Normal 4.8-24.2 [facility] Comment on above: Performed By: #### A XUAN, GLYHGB, CRP, SED, PE, CDP, TSHX, HIVCMB, CK, ANAX, CP, B12FOL, VD25, AHCV #### [address] [address] Coding Director: Jasbir Montalvo MD #### PACHECO DUARTE #### [facility] [address] [place] [address] Coding Director: Samuel Olivia MD Prot. Electroph, Blon 2023 Albumin [Mass/Vol] 4.2 g/dL Normal 3.2-5.2 [facility] Comment on above: Performed By: #### A XUAN, GLYHGB, CRP, SED, PE, CDP, TSHX, HIVCMB, CK, ANAX, CP, B12FOL, VD25, AHCV #### [address] [id number] Coding Director: Jasbir Montalvo MD #### PACHECO DUARTE #### [facility] [address] [place] [address] Coding Director: Samuel Olivia MD Albumin, % 59 % Normal 45-65 [facility] Comment on above: Performed By: #### A XUAN, GLYHGB, CRP, SED, PE, CDP, TSHX, HIVCMB, CK, ANAX, CP, B12FOL, VD25, AHCV #### [address] [address] Coding Director: Jasbir Motnalvo MD #### PACHECO DUARTE #### [address] [id number] Coding Director: Samuel Olivia MD Rxfyl-6-kzqauztui 0.2 g/dL Normal 0.1-0.4 [facility] Comment on above: Performed By: #### A XUAN, GLYHGB, CRP, SED, PE, CDP, TSHX, HIVCMB, CK, ANAX, CP, B12FOL, VD25, AHCV #### [address] [address] Coding Director: Jasbir Montalvo MD #### PACHECO DUARTE #### [address] [address] Coding Director: Samuel Olivia MD Ojmup-6-yulmmpzak,% 3 % Normal 3-6 [facility] Comment on above: Performed By: #### A XUAN, GLYHGB, CRP, SED, PE, CDP, TSHX, HIVCMB, CK, ANAX, CP, B12FOL, VD25, AHCV #### [place] [address] Coding Director: Jasbir Montalvo MD #### PACHECO DUARTE #### [address] [id number] Coding Director: Samuel Olivia MD Jmlrm-4-xzubhizmd 0.9 g/dL Normal 0.5-0.9 [facility] Comment on above: Performed By: #### A XUAN, GLYHGB, CRP, SED, PE, CDP, TSHX, HIVCMB, CK, ANAX, CP, B12FOL, VD25, AHCV #### [address] [address] Coding Director: Jasbir Montalvo MD #### PACHCEO DUARTE #### [facility] [address] [place], [place] [id number] Coding Director: Samuel Olivia MD Mltst-4-txioateki,% 13 % Normal 6-13 [facility] Comment on above: Performed By: #### A XUAN, GLYHGB, CRP, SED, PE, CDP, TSHX, HIVCMB, CK, ANAX, CP, B12FOL, VD25, AHCV #### [address] [address] Coding Director: Jasbir Montalvo MD #### PACHECO DUARTE #### [facility] [address] [address] Coding Director: Samuel Olivia MD Beta-globulins 0.8 g/dL Normal 0.5-1.1 [facility] Comment on above: Performed By: #### A XUAN, GLYHGB, CRP, SED, PE, CDP, TSHX, HIVCMB, CK, ANAX, CP, B12FOL, VD25, AHCV #### [address] [address] Coding Director: Jasbir Montalvo MD #### PACHECO DUARTE #### [address] [address] Coding Director: Samuel Olivia MD Beta-globulins,% 11 % Normal 11-19 [facility] Comment on above: Performed By: #### A XUAN, GLYHGB, CRP, SED, PE, CDP, TSHX, HIVCMB, CK, ANAX, CP, B12FOL, VD25, AHCV #### [address] [address] Coding Director: Jasbir Montalvo MD #### AMGE, ALYARP #### [facility] [address] [place] [address] Coding Director: Samuel Olivia MD Gamma-globulins 1.0 g/dL Normal 0.5-1.5 [facility] Comment on above: Performed By: #### A XUAN, GLYHGB, CRP, SED, PE, CDP, TSHX, HIVCMB, CK, ANAX, CP, B12FOL, VD25, AHCV #### [facility] [address] [place] [address] Coding Director: Jasbir Montalvo MD #### PACHECO DUARTE #### [facility] [address] [place], [place] [id number] Coding Director: Samuel Olivia MD Gamma-globulins,% 14 % Normal 9-20 [facility] Comment on above: Performed By: #### A XUAN, GLYHGB, CRP, SED, PE, CDP, TSHX, HIVCMB, CK, ANAX, CP, B12FOL, VD25, AHCV #### [address] [id number] Coding Director: Jasbir Montalvo MD #### ASHVIN DUARTERP #### [facility] [address] [place], [place] [id number] Coding Director: Samuel Olivia MD Total Prot. Sum 7.1 g/dL Normal 6.3-8.2 [facility] Comment on above: Performed By: #### A XUAN, GLYHGB, CRP, SED, PE, CDP, TSHX, HIVCMB, CK, ANAX, CP, B12FOL, VD25, AHCV #### [address] [address] Coding Director: Jasbir Montalvo MD #### GERALD ALROSIERP #### [facility] [address] [place], [place] [id number] Coding Director: Samuel Olivia MD Total Prot. Sum,% 100 % Normal 98-102 [facility] Comment on above: Performed By: #### A XUAN, GLYHGB, CRP, SED, PE, CDP, TSHX, HIVCMB, CK, ANAX, CP, B12FOL, VD25, AHCV #### [address] [address] Coding Director: Jasbir Montalvo MD #### PACHECO DUARTE #### [facility] [address] [place] [address] Coding Director: Samuel Olivia MD B12/Folate Panelon 4 Cobalamin (Vitamin B12) [Mass/Vol] 577 pg/mL Normal 232-1245 [facility] Comment on above: Performed By: #### A XUAN, GLYHGB, CRP, SED, PE, CDP, TSHX, HIVCMB, CK, ANAX, CP, B12FOL, VD25, AHCV #### [address] [address] Coding Director: Jasbir Montalvo MD #### PACHECO DUARTE #### [facility] [address] [place], [place] [id number] Coding Director: Samuel Olivia MD C-Reactive Proteinon 024 CRP [Mass/Vol] 20.1 mg/L High 0.0-5.0 [facility] Comment on above: Performed By: #### A XUAN, GLYHGB, CRP, SED, PE, CDP, TSHX, HIVCMB, CK, ANAX, CP, B12FOL, VD25, AHCV #### [address] [address] Coding Director: Jasbir Montalvo MD #### PACHECO DUARTE #### [facility] [address] [place], [place] [id number] Coding Director: Samuel Olivia MD CBC with Diffon 11-25-2023 Abs. Basophil 0.09 k/uL Normal 0.00-0.20 [facility] Comment on above: Performed By: #### A XUAN, GLYHGB, CRP, SED, PE, CDP, TSHX, HIVCMB, CK, ANAX, CP, B12FOL, VD25, AHCV #### [address] [address] Coding Director: Jasbir Montalvo MD #### ASHVIN DUARTERP #### [facility] [address] [place], [place] [id number] Coding Director: Samuel Olivia MD Abs.Imm.Granulocyte 0.05 k/uL Normal 0.00-0.30 [facility] Comment on above: Performed By: #### A XUAN, GLYHGB, CRP, SED, PE, CDP, TSHX, HIVCMB, CK, ANAX, CP, B12FOL, VD25, AHCV #### [address] [address] Coding Director: Jasbir Montalvo MD #### PACHECO DUARTE #### [facility] [address] [place] [address] Coding Director: Samuel Olivia MD Abs.Neutrophil (Seg) 7.53 k/uL Normal 1.50-8.10 [facility] Comment on above: Performed By: #### A XUAN, GLYHGB, CRP, SED, PE, CDP, TSHX, HIVCMB, CK, ANAX, CP, B12FOL, VD25, AHCV #### [address] [address] Coding Director: Jasbir Montalvo MD #### ASHVIN DUARTERP #### [facility] [address] [place] [address] Coding Director: Samuel Olivia MD Basophils/100 WBC (Bld) 1 % Normal 0-2 [facility] Comment on above: Performed By: #### A XUAN, GLYHGB, CRP, SED, PE, CDP, TSHX, HIVCMB, CK, ANAX, CP, B12FOL, VD25, AHCV #### [address] [address] Coding Director: Jasbir Montalvo MD #### PACHECO DUARTE #### [address] [address] Coding Director: Samuel Olivia MD Eosinophils (Bld) [#/Vol] 0.39 10*3/uL Normal 0.00-0.44 [facility] Comment on above: Performed By: #### A XUAN, GLYHGB, CRP, SED, PE, CDP, TSHX, HIVCMB, CK, ANAX, CP, B12FOL, VD25, AHCV #### [place] [address] Coding Director: Jasbir Montalvo MD #### PACHECO DUARTE #### [address] [address] Coding Director: Samuel Olivia MD Eosinophils/100 WBC (Bld) 3 % Normal 1-4 [facility] Comment on above: Performed By: #### A XUAN, GLYHGB, CRP, SED, PE, CDP, TSHX, HIVCMB, CK, ANAX, CP, B12FOL, VD25, AHCV #### [place] [address] Coding Director: Jasbir Montalvo MD #### PACHECO DUARTE #### [address] [address] Coding Director: Samuel Olivia MD Erythrocyte distribution width (RBC) [Ratio] 14.6 % High 11.8-14.4 [facility] Comment on above: Performed By: #### A XUAN, GLYHGB, CRP, SED, PE, CDP, TSHX, HIVCMB, CK, ANAX, CP, B12FOL, VD25, AHCV #### [place] [address] Coding Director: Jasbir Montalvo MD #### PACHECO DUARTE #### [address] [id number] Coding Director: Samuel Olivia MD Hematocrit (Bld) [Volume fraction] 49.2 % Normal 40.7-50.3 [facility] Comment on above: Performed By: #### A XUAN, GLYHGB, CRP, SED, PE, CDP, TSHX, HIVCMB, CK, ANAX, CP, B12FOL, VD25, AHCV #### [place] [address] Coding Director: Jasbir Montalvo MD #### PACHECO DUARTE #### [address] [id number] Coding Director: Samuel Olivia MD Hemoglobin (Bld) [Mass/Vol] 15.6 g/dL Normal 13.0-17.0 [facility] Comment on above: Performed By: #### A XUAN, GLYHGB, CRP, SED, PE, CDP, TSHX, HIVCMB, CK, ANAX, CP, B12FOL, VD25, AHCV #### [place] [address] Coding Director: Jasbir Montalvo MD #### PACHECO DUARTE #### [address] [address] Coding Director: Samuel Olivia MD Immature granulocytes/100 WBC (Bld) 0 % Normal 0 [facility] Comment on above: Performed By: #### A XUAN, GLYHGB, CRP, SED, PE, CDP, TSHX, HIVCMB, CK, ANAX, CP, B12FOL, VD25, AHCV #### [address] [address] Coding Director: Jasbir Montalvo MD #### PACHECO DUARTE #### [facility] [address] [place], [place] [id number] Coding Director: Samuel Olivia MD Lymphocytes (Bld) [#/Vol] 3.13 10*3/uL Normal 1.10-3.70 [facility] Comment on above: Performed By: #### A XUAN, GLYHGB, CRP, SED, PE, CDP, TSHX, HIVCMB, CK, ANAX, CP, B12FOL, VD25, AHCV #### [address] [address] Coding Director: Jasbir Montalvo MD #### PACHECO DUARTE #### [address] [address] Coding Director: Samuel Olivia MD Lymphocytes/100 WBC (Bld) 26 % Normal 24-43 [facility] Comment on above: Performed By: #### A XUAN, GLYHGB, CRP, SED, PE, CDP, TSHX, HIVCMB, CK, ANAX, CP, B12FOL, VD25, AHCV #### [address] [id number] Coding Director: Jasbir Montalvo MD #### PACHECO DUARTE #### [facility] [address] [place], [place] [id number] Coding Director: Samuel Olivia MD MCH (RBC) [Entitic mass] 31.0 pg Normal 25.2-33.5 [facility] Comment on above: Performed By: #### A XUAN, GLYHGB, CRP, SED, PE, CDP, TSHX, HIVCMB, CK, ANAX, CP, B12FOL, VD25, AHCV #### [address] [id number] Coding Director: Jasbir Montalvo MD #### ASHVIN DUARTERP #### [facility] [address] [place] [address] Coding Director: Samuel Olivia MD MCHC (RBC) [Mass/Vol] 31.7 g/dL Normal 28.4-34.8 [facility] Comment on above: Performed By: #### A XUAN, GLYHGB, CRP, SED, PE, CDP, TSHX, HIVCMB, CK, ANAX, CP, B12FOL, VD25, AHCV #### [place] [address] Coding Director: Jasbir Montalvo MD #### ASHVIN DUARTERP #### [facility] [address] [place] [address] Coding Director: Samuel Olivia MD MCV (RBC) [Entitic vol] 97.8 fL Normal 82.6-102.9 [facility] Comment on above: Performed By: #### A XUAN, GLYHGB, CRP, SED, PE, CDP, TSHX, HIVCMB, CK, ANAX, CP, B12FOL, VD25, AHCV #### [id number] Coding Director: Jasbir Montalvo MD #### PACHECO DUARTE #### [facility] [address] [place] [address] Coding Director: Samuel Olivia MD Monocytes (Bld) [#/Vol] 0.65 10*3/uL Normal 0.10-1.20 [facility] Comment on above: Performed By: #### A XUAN, GLYHGB, CRP, SED, PE, CDP, TSHX, HIVCMB, CK, ANAX, CP, B12FOL, VD25, AHCV #### [place] [id number] Coding Director: Jasbir Montalvo MD #### AMYARELI, ALYARP #### [facility] [address] [place], [place] [id number] Coding Director: Samuel Olivia MD Monocytes/100 WBC (Bld) 6 % Normal 3-12 [facility] Comment on above: Performed By: #### A XUAN, GLYHGB, CRP, SED, PE, CDP, TSHX, HIVCMB, CK, ANAX, CP, B12FOL, VD25, AHCV #### [facility] [address] [place] [id number] Coding Director: Jasbir Montalvo MD #### ASHVIN DUARTERP #### [facility] [address] [place], [place] [id number] Coding Director: Samuel Olivia MD Neutrophil (Seg) 64 % Normal 36-65 [facility] Comment on above: Performed By: #### A XUAN, GLYHGB, CRP, SED, PE, CDP, TSHX, HIVCMB, CK, ANAX, CP, B12FOL, VD25, AHCV #### [address] [address] Coding Director: Jasbir Montalvo MD #### GERALD ALYARP #### [facility] [address] [place], [place] [id number] Coding Director: Samuel Olivia MD NRBC Automated 0.0 per 100 WBC Normal 0.0 [facility] Comment on above: Performed By: #### A XUAN, GLYHGB, CRP, SED, PE, CDP, TSHX, HIVCMB, CK, ANAX, CP, B12FOL, VD25, AHCV #### [address] [address] Coding Director: Jasbir Montalvo MD #### AMYARELI ALYARP #### [facility] [address] [place], [place] [id number] Coding Director: Samuel Olivia MD Platelet mean volume (Bld) [Entitic vol] 10.5 fL Normal 8.1-13.5 [facility] Comment on above: Performed By: #### A XUAN, GLYHGB, CRP, SED, PE, CDP, TSHX, HIVCMB, CK, ANAX, CP, B12FOL, VD25, AHCV #### [address] [address] Coding Director: Jasbir Montalvo MD #### PACHECO DUARTE #### [facility] [address] [place] [address] Coding Director: Samuel Olivia MD Platelets (Bld) [#/Vol] 251 10*3/uL Normal 138-453 [facility] Comment on above: Performed By: #### A XUAN, GLYHGB, CRP, SED, PE, CDP, TSHX, HIVCMB, CK, ANAX, CP, B12FOL, VD25, AHCV #### [address] [address] Coding Director: Jasbir Montalvo MD #### PACHECO DUARTE #### [facility] [address] [place], [place] [id number] Coding Director: Samuel Olivia MD RBC (Bld) [#/Vol] 5.03 10*6/uL Normal 4.21-5.77 [facility] Comment on above: Performed By: #### A XUAN, GLYHGB, CRP, SED, PE, CDP, TSHX, HIVCMB, CK, ANAX, CP, B12FOL, VD25, AHCV #### [place] [address] Coding Director: Jasbir Montalvo MD #### PACHECO DUARTE #### [facility] [address] [place] [address] Coding Director: Samuel Olivia MD RBC morphology finding Nom (Bld) ANISOCYTOSIS PRESENT Normal [facility] Comment on above: Performed By: #### A XUAN, GLYHGB, CRP, SED, PE, CDP, TSHX, HIVCMB, CK, ANAX, CP, B12FOL, VD25, AHCV #### [address] [address] Coding Director: Jasbir Montalvo MD #### ASHVIN DUARTERP #### [facility] [address] [place], [place] [id number] Coding Director: Samuel Olivia MD WBC (Bld) [#/Vol] 11.8 10*3/uL High 3.5-11.3 [facility] Comment on above: Performed By: #### A XUAN, GLYHGB, CRP, SED, PE, CDP, TSHX, HIVCMB, CK, ANAX, CP, B12FOL, VD25, AHCV #### [address] [address] Coding Director: Jasbir Montalvo MD #### PACHECO DUARTE #### [facility] [address] [place] [address] Coding Director: Samuel Olivia MD Comp Metabolic Profon 2023 Albumin [Mass/Vol] 4.0 g/dL Normal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 Performed By: #### A 1C #### [facility] [address] [place] [address] Dr. Miah Buck Anion gap [Moles/Vol] 13.8 mmol/L Normal [facility] Comment on above: Performed By: #### A 1C #### [facility] [address] [place] [address] Dr. Miah Buck AST [Catalytic activity/Vol] 19 U/L Normal 15-37 [facility] Comment on above: Performed By: #### A 1C #### [facility] [address] [place] [address] Dr. Miah Buck Bilirubin [Mass/Vol] 0.4 mg/dL Normal 0.2-1.0 [facility] Comment on above: Performed By: #### A 1C #### [facility] [address] [place] [address] Dr. Miah Buck Calcium [Mass/Vol] 9.1 mg/dL Normal 8.5-10.1 [facility] Comment on above: Performed By: #### A 1C #### [facility] [address] [place] [address] Dr. Miah Buck Chloride [Moles/Vol] 99 mmol/L Normal 98-107 [facility] Comment on above: Performed By: #### A 1C #### [facility] [address] [address] [address] Miah Buck CO2 [Moles/Vol] 27.6 mmol/L Normal 21.0-32.0 [facility] Comment on above: Performed By: #### A 1C #### [facility] [address] [address] [address] Miah Buck Creatinine [Mass/Vol] 1.88 mg/dL Critically high 0.70-1.30 [facility] Comment on above: Performed By: #### A 1C #### [facility] [address] [address] [address] Miah Buck EGFR-AF MACEDONIAN 44 mL/min/1.73m2 Critically low >=60 [facility] Comment on above: Performed By: #### A 1C #### [facility] [address] [address] [address] Miah Buck EGFR-NON AF MACEDONIAN 37 mL/min/1.73m2 Critically low >=60 [facility] Comment on above: Performed By: #### A 1C #### [facility] [address] [address] [address] Miah Buck Globulin (S) [Mass/Vol] 4.7 g/dL Normal [facility] Comment on above: Performed By: #### A 1C #### [facility] [address] [address] [address] Miah Buck Glucose [Mass/Vol] 524 mg/dL Critically high 74-106 [facility] Comment on above: Performed By: #### A 1C #### [facility] [address] [address] [address] Miah Buck Potassium [Moles/Vol] 4.4 mmol/L Normal 3.5-5.1 [facility] Comment on above: Performed By: #### A 1C #### [facility] [address] [address] [address] Miah Buck Protein [Mass/Vol] 8.2 g/dL Normal 6.4-8.2 [facility] Comment on above: Performed By: #### A 1C #### [facility] [address] [place] [address] Dr. Miah Buck Sodium [Moles/Vol] 136 mmol/L Normal 136-145 [facility] Comment on above: Performed By: #### A 1C #### [facility] [address] [place] [address] Dr. Miah Buck Urea nitrogen [Mass/Vol] 21.0 mg/dL Critically high 7.0-18.0 [facility] Comment on above: Performed By: #### A 1C #### [facility] [address] [place] [address] Dr. Miah Buck Urea nitrogen/Creatinine [Mass ratio] 11.2 mg/mg Normal [facility] Comment on above: Performed By: #### A 1C #### [facility] [address] [place] [address] Dr. Miah Buck T4on 02-20-2023 T4 [Mass/Vol] 7.80 ug/dL Normal 4.50-12.10 [facility] Comment on above: Performed By: #### A 1C #### [facility] [address] [place] [address] Dr. Miah Buck TSHon 02-20-2023 TSH 0.740 uIU/mL Normal 0.358-3.740 [facility] Comment on above: Performed By: #### A 1C #### [facility] [address] [place] [address] Dr. Miah Buck URIC ACID SERUMon 02-20-2023 Urate [Mass/Vol] 8.2 mg/dL Critically high 3.5-7.2 [facility] Comment on above: Performed By: #### A 1C #### [facility] [address] [place] [address] Dr. Miah Buck CREATININEon 01-07-2023 Creatinine [Mass/Vol] 2.09 mg/dL Critically high 0.70-1.30 [facility] Comment on above: Performed By: #### M G, CMP, BNP, TSH, CRP #### [facility] [address] [place], [place] [address] Dr. Miah Buck EGFR-AF MACEDONIAN 39 mL/min/1.73m2 Critically low >=60 [facility] Comment on above: Performed By: #### M G, CMP, BNP, TSH, CRP #### [facility] [address] [place], [place] [address] Dr. Miah Buck EGFR-NON AF MACEDONIAN 32 mL/min/1.73m2 Critically low >=60 [facility] Comment on above: Performed By: #### M G, CMP, BNP, TSH, CRP #### [facility] [address] [place], [place] [address] ABD/PELV W CONon 01-08-[address] ABD/PELV W CON EXAMINATION: CT ABD/ [...] Date: 2023-01-07 10:18 Normal [facility] Covid-19 PCR (CVDTBH)on SARS-CoV-2 (COVID-19) RNA EMMY+probe Ql (Unsp spec) Not detected Normal NOT DETECTED [facility] Comment on above: Result Comment: This test is not yet approved or cleared by the [place] FDA. When there are no FDA-approved or cleared tests available, and other criteria are met, FDA can make tests available under an emergency access mechanism called an Emergency Use Authorization (EUA). The EUA for this test is supported by the [place] of Health and Human Service's (HHS's) declaration [...] CMP, BNP, TSH, CRP #### [facility] [address] HEAD WO CONon [...] Date: 2022-05-29 09:41 Normal [facility] CT NECK ST WO CONon 05-29-[address] WO CON EXAMINATION: CT [...] Date: 2022-05-29 10:26 Normal [facility] VIT D 25-[place] [facility] 2021 Vitamin D, 25-Hydroxy 27.6 ng/mL Critically low 30.0-100.0 [facility] Comment on above: Result Comment: Rima min D deficiency has been defined by the [place] of [employer] and an Endocrine Society practice guideline as a level of serum 25-OH vitamin D less than 20 ng/mL (1,2). The Endocrine Society went on to further define vitamin D insufficiency as a level between 21 and 29 ng/mL (2). 1. IOM ([place] of [employer]). 2010. Dietary reference intakes for calcium and D. [place]: The National Academies Press. 2. Su MF, Agapito HOSKINS, Mason KAUFMAN, et al. Evaluation, treatment, and prevention of vitamin D deficiency: an Endocrine Society clinical practice guideline. JCEM. 2010; 96(7):1911-30. Performed By: #### V ITAD #### [facility] [address] [place] [address] Dr. Miah Buck XR CHEST 2 Von [...] Date: 2022-05-24 07:37 Normal [facility] BNPon 05-23-2022 Natriuretic peptide B (Bld) [Mass/Vol] 53.0 pg/mL Normal <=900.0 [facility] Comment on above: Performed By: #### M G, CMP, BNP, TSH, CRP #### [facility] [address] [place] [address] Dr. Miah Buck CBC AUTO DIFFon 05-23-2022 BASO # 0.1 103/ul Normal 0.0-0.1 [facility] Comment on above: Performed By: #### A 1C #### [facility] [address] [place] [address] Dr. Miah Buck Basophils/100 WBC (Bld) 0.7 % Normal 0.2-2.0 [facility] Comment on above: Performed By: #### A 1C #### [facility] [address] [place] [address] Dr. Miah Buck EO # 0.3 103/ul Normal 0.0-0.7 [facility] Comment on above: Performed By: #### A 1C #### [facility] [address] [place] [address] Dr. Miah Buck Eosinophils/100 WBC (Bld) 4.0 % Normal 0.9-7.0 [facility] Comment on above: Performed By: #### A 1C #### [facility] [address] [place] [address] Dr. Miah Buck Erythrocyte distribution width (RBC) [Ratio] 13.4 % Normal 11.0-15.0 [facility] Comment on above: Performed By: #### A 1C #### [facility] [address] [place] [address] Dr. Miah Buck Hematocrit (Bld) [Volume fraction] 46.1 % Normal 42.0-54.0 [facility] Comment on above: Performed By: #### A 1C #### [facility] [address] [place] [address] Dr. Miah Buck Hemoglobin (Bld) [Mass/Vol] 15.5 g/dL Normal 14.0-18.0 [facility] Comment on above: Performed By: #### A 1C #### [facility] [address] [place] [address] Dr. Miah Buck IG # 0.03 10e3/ul Normal 0.00-0.03 [facility] Comment on above: Performed By: #### A 1C #### [facility] [address] [place] [address] Dr. Miah Buck IG % 0.4 % Normal 0.0-0.5 [facility] Comment on above: Performed By: #### A 1C #### [facility] [address] [place] [address] Dr. Miah Buck LYMPH # 2.0 103/ul Normal 1.2-3.8 [facility] Comment on above: Performed By: #### A 1C #### [facility] [address] [place] [address] Dr. Miah Buck Lymphocytes/100 WBC (Bld) 28.1 % Normal 20.5-60.0 [facility] Comment on above: Performed By: #### A 1C #### [facility] [address] [place] [address] Dr. Miah Buck MANUAL DIFF REQ NO Normal [facility] Comment on above: Performed By: #### A 1C #### [facility] [address] [place] [address] Dr. Miah Buck MCH (RBC) [Entitic mass] 31.8 pg Normal 25.9-34.0 [facility] Comment on above: Performed By: #### A 1C #### [facility] [address] [place] [address] Dr. Miah Buck MCHC (RBC) [Mass/Vol] 33.6 g/dL Normal 29.9-35.2 [facility] Comment on above: Performed By: #### A 1C #### [facility] [address] [place] [address] Dr. Miah Buck MCV (RBC) [Entitic vol] 94.7 fL Critically high 80.0-94.0 [facility] Comment on above: Performed By: #### A 1C #### [facility] [address] [place] [address] Dr. Miah Buck MONO # 0.5 103/ul Normal 0.3-0.8 [facility] Comment on above: Performed By: #### A 1C #### [facility] [address] [place] [address] Dr. Miah Buck Monocytes/100 WBC (Bld) 7.1 % Normal 1.7-12.0 [facility] Comment on above: Performed By: #### A 1C #### [facility] [address] [place] [address] Dr. Miah Buck NEUT # 4.3 103/ul Normal 1.4-6.5 [facility] Comment on above: Performed By: #### A 1C #### [facility] [address] [place] [address] Dr. Miah Buck Neutrophils/100 WBC (Bld) 59.7 % Normal 43.0-75.0 [facility] Comment on above: Performed By: #### A 1C #### [facility] [address] [place] [address] Dr. Miah Buck Platelet mean volume (Bld) [Entitic vol] 10.6 fL Normal 9.5-13.5 [facility] Comment on above: Performed By: #### A 1C #### [facility] [address] [place] [address] Dr. Miah Buck PLT 209 103/ul Normal 150-450 [facility] Comment on above: Performed By: #### A 1C #### [facility] [address] [address] [address] Miah Buck RBC 4.87 106/ul Normal 4.70-6.10 [facility] Comment on above: Performed By: #### A 1C #### [facility] [address] [address] [address] Miah Buck WBC 7.2 103/ul Normal 4.0-11.0 [facility] Comment on above: Performed By: #### A 1C #### [facility] [address] [place] [address] Dr. Miah Buck CRPon 05-23-2022 CRP 1.0 mg/dL Normal <=1.0 [facility] Comment on above: Performed By: #### M G, CMP, BNP, TSH, CRP #### [facility] [address] [place] [address] Dr. Miah Buck ECHOCARDIO M/2D COMPLETEon 0 05-23-2022 ECHOCARDIO M/2D COMPLETE Patient: ANDRY PIERRE Exam Date: 05/23/2022 : 1960 Gender:M Ordering : SO[facility] Admission #: [id number] Family : DR SAY MCCORMICK . Order #: [id number] CLICK HERE TO VIEW EXAM ECHOCARDIOGRAM REPORT [...] Pearce M.D. on 05/23/2022 at 18:40 Normal [facility] MAGNESIUMon 05-23-2022 Magnesium [Mass/Vol] 2.3 mg/dL Normal 1.8-2.4 [facility] Comment on above: Performed By: #### M G, CMP, BNP, TSH, CRP #### [facility] [address] [address] [address] Miah Buck PROF 14(COMP METB)on 022 Albumin [Mass/Vol] 3.6 g/dL Normal 3.4-5.0 [facility] Comment on above: Performed By: #### M G, CMP, BNP, TSH, CRP #### [facility] [address] [address] [address] Miah Buck Albumin/Globulin [Mass ratio] 0.9 {ratio} Normal [facility] Comment on above: Performed By: #### M G, CMP, BNP, TSH, CRP #### [facility] [address] [address] [address] Miah Buck ALP [Catalytic activity/Vol] 113 U/L Normal 46-116 [facility] Comment on above: Performed By: #### M G, CMP, BNP, TSH, CRP #### [facility] [address] [address] [address] Miah Buck ALT [Catalytic activity/Vol] 34 U/L Normal 16-63 [facility] Comment on above: Performed By: #### M G, CMP, BNP, TSH, CRP #### [facility] [address] [address] [address] Miah Buck Anion gap [Moles/Vol] 10.7 mmol/L Normal [facility] Comment on above: Performed By: #### M G, CMP, BNP, TSH, CRP #### [facility] [address] [address] [address] Miah Buck AST [Catalytic activity/Vol] 23 U/L Normal 15-37 [facility] Comment on above: Performed By: #### M G, CMP, BNP, TSH, CRP #### [facility] [address] [place] [address] Dr. Miah Buck Bilirubin [Mass/Vol] 0.3 mg/dL Normal 0.2-1.0 [facility] Comment on above: Performed By: #### M G, CMP, BNP, TSH, CRP #### [facility] [address] [place] [address] Dr. Miah Buck Calcium [Mass/Vol] 8.9 mg/dL Normal 8.5-10.1 [facility] Comment on above: Performed By: #### M G, CMP, BNP, TSH, CRP #### [facility] [address] [address] [address] Miah Buck Chloride [Moles/Vol] 105 mmol/L Normal 98-107 [facility] Comment on above: Performed By: #### M G, CMP, BNP, TSH, CRP #### [facility] [address] [place] [address] Dr. Miah Buck CO2 [Moles/Vol] 26.5 mmol/L Normal 21.0-32.0 [facility] Comment on above: Performed By: #### M G, CMP, BNP, TSH, CRP #### [facility] [address] [address] [address] Miah Buck Creatinine [Mass/Vol] 1.73 mg/dL Critically high 0.70-1.30 [facility] Comment on above: Performed By: #### M G, CMP, BNP, TSH, CRP #### [facility] [address] [address] [address] Miah Buck EGFR-AF MACEDONIAN 49 mL/min/1.73m2 Critically low >=60 [facility] Comment on above: Performed By: #### M G, CMP, BNP, TSH, CRP #### [facility] [address] [place] [address] Dr. Miah Buck EGFR-NON AF MACEDONIAN 40 mL/min/1.73m2 Critically low >=60 [facility] Comment on above: Performed By: #### M G, CMP, BNP, TSH, CRP #### [facility] [address] [place] [address] Dr. Miah Buck Globulin (S) [Mass/Vol] 4.0 g/dL Normal [facility] Comment on above: Performed By: #### M G, CMP, BNP, TSH, CRP #### [facility] [address] [place] [address] Dr. Miah Buck Glucose [Mass/Vol] 285 mg/dL Critically high 74-106 [facility] Comment on above: Performed By: #### M G, CMP, BNP, TSH, CRP #### [facility] [address] [place] [address] Dr. Miah Buck Potassium [Moles/Vol] 4.2 mmol/L Normal 3.5-5.1 [facility] Comment on above: Performed By: #### M G, CMP, BNP, TSH, CRP #### [facility] [address] [place] [address] Dr. Miah Buck Protein [Mass/Vol] 7.6 g/dL Normal 6.4-8.2 [facility] Comment on above: Performed By: #### M G, CMP, BNP, TSH, CRP #### [facility] [address] [place] [address] Dr. Miah Buck Sodium [Moles/Vol] 138 mmol/L Normal 136-145 [facility] Comment on above: Performed By: #### M G, CMP, BNP, TSH, CRP #### [facility] [address] [address] [address] Miah Buck Urea nitrogen [Mass/Vol] 23.0 mg/dL Critically high 7.0-18.0 [facility] Comment on above: Performed By: #### M G, CMP, BNP, TSH, CRP #### [facility] [address] [place] [address] Dr. Miah Buck Urea nitrogen/Creatinine [Mass ratio] 13.3 mg/mg Normal [facility] Comment on above: Performed By: #### M G, CMP, BNP, TSH, CRP #### [facility] [address] [place] [address] Dr. Miah Buck TSHon 05-23-2022 TSH 0.714 uIU/mL Normal 0.358-3.740 [facility] Comment on above: Performed By: #### M G, CMP, BNP, TSH, CRP #### [facility] [address] [address] [address] Miah Buck VITAMIN B12on 05-23-2022 Cobalamin (Vitamin B12) [Mass/Vol] 930.0 pg/mL Normal 193.0-986.0 [facility] Comment on above: Performed By: #### V ITB12 #### [facility] [address] [place] [address] Dr. Miah Buck BASIC METABOLIC PANELon 07-07 Calcium [Mass/Vol] 8.3 mg/dL Low 8.6-10.3 [facility] Comment on above: Order Comment: No: D o not add to previous draw Performed By: #### 1 0070, 62656, 69578, 32314 #### [facility] [address] [facility] [place] [address], [facility] Chloride [Moles/Vol] 105 mmol/L Normal 98-107 [facility] Comment on above: Order Comment: No: D o not add to previous draw Performed By: #### 1 0070, 47049, 76772, 18381 #### [facility] [address] [place] [address], [facility] CO2 [Moles/Vol] 22 mmol/L Normal 21-31 [facility] Comment on above: Order Comment: No: D o not add to previous draw Performed By: #### 1 0070, 30398, 12500, 52218 #### [facility] [address] [place] [address], [facility] Creatinine [Mass/Vol] 1.31 mg/dL High 0.70-1.30 [facility] Comment on above: Order Comment: No: D o not add to previous draw Performed By: #### 1 0070, 95576, 55885, 46755 #### [facility] [address] [place] [address], [facility] eGFR- non- 56 ml/min/1.73sq m Abnormal >60 [facility] Comment on above: Order Comment: No: D o not add to previous draw Performed By: #### 1 0070, 15620, 62142, 92290 #### [facility] [address] [place] [address], [facility] GFR/1.73 sq M.predicted among blacks MDRD (S/P/Bld) [Vol rate/Area] mL/min/{1.73_m2} Normal >60 [facility] Comment on above: Order Comment: No: D o not add to previous draw Performed By: #### 1 0070, 82396, 96935, 80336 #### [facility] [address] [place] [address], [facility] Glucose [Mass/Vol] 231 mg/dL High 70-100 [facility] Comment on above: Order Comment: No: D o not add to previous draw Performed By: #### 1 0070, 07775, 52407, 39516 #### [facility] [address] Potassium [Moles/Vol] 3.6 mmol/L Normal 3.5-5.1 [facility] Comment on above: Order Comment: No: D o not add to previous draw Performed By: #### 1 0070, 87822, 84845, 28331 #### [facility] [address] [facility]. [address] Sodium [Moles/Vol] 139 mmol/L Normal 136-145 [facility] Comment on above: Order Comment: No: D o not add to previous draw Performed By: #### 1 0070, 80770, 03374, 67005 #### [facility] [address] Urea nitrogen [Mass/Vol] 17 mg/dL Normal 7-25 [facility] Comment on above: Order Comment: No: D o not add to previous draw Performed By: #### 1 0070, 89310, 99624, 37368 #### [facility] [address] [facility]. [address] CBC W/DIFFon 07-27-2021 ABS IMM GRANS 0.1 10*3/uL Normal 0.0-0.2 [facility] Comment on above: Performed By: #### 1 0070, 14650, 83895, 04047 #### [facility] [address] [facility]. [address] ABS NEUTROPHILS 10.2 10*3/uL High 1.6-7.6 [facility] Comment on above: Performed By: #### 1 0070, 71007, 76815, 39183 #### [facility] [address] [place] [address], [facility] Basophils (Bld) [#/Vol] 0.0 10*3/uL Normal 0.0-0.2 [facility] Comment on above: Performed By: #### 1 0070, 05759, 63151, 96500 #### [facility] [address] [place] [address], [facility] Basophils/100 WBC (Bld) 0.3 % Normal 0.0-1.0 [facility] Comment on above: Performed By: #### 1 0070, 99635, 51325, 17772 #### [facility] [address] [place] [id number], [facility] Eosinophils (Bld) [#/Vol] 0.0 10*3/uL Normal 0.0-0.5 [facility] Comment on above: Performed By: #### 1 0070, 44785, 47980, 37777 #### [facility] [address] [place] [address], [facility] Eosinophils/100 WBC (Bld) 0.0 % Normal 0.0-6.0 [facility] Comment on above: Performed By: #### 1 0070, 55201, 87261, 77983 #### [facility] [address] Erythrocyte distribution width (RBC) [Ratio] 13.2 % Normal 11.5-15.0 [facility] Comment on above: Performed By: #### 1 0070, 96014, 72730, 78682 #### [facility] [address] [facility] [address] Hematocrit (Bld) [Volume fraction] 44.2 % Normal 39.0-50.0 [facility] Comment on above: Performed By: #### 1 0070, 47009, 01299, 37478 #### [facility] [address] [facility] [place] [address], [facility] Hemoglobin (Bld) [Mass/Vol] 14.9 g/dL Normal 13.0-17.0 [facility] Comment on above: Performed By: #### 1 0070, 81011, 94677, 79820 #### [facility] [address] [place] [address], [facility] IMMATURE GRANS 0.7 % Normal 0.0-1.0 [facility] Comment on above: Performed By: #### 1 0, 68601, 18827, 15434 #### [facility] [address] [place] [address], [facility] Lymphocytes (Bld) [#/Vol] 1.0 10*3/uL Low 1.2-4.0 [facility] Comment on above: Performed By: #### 1 0, 02320, 63111, 73155 #### [facility] [address] Lymphocytes/100 WBC (Bld) 8.2 % Low 20.0-45.0 [facility] Comment on above: Performed By: #### 1 0, 03688, 33924, 18885 #### [facility] [address] [facility]. [address] MCH (RBC) [Entitic mass] 31.2 pg Normal 27.0-33.0 [facility] Comment on above: Performed By: #### 1 0, 65064, 48479, 03242 #### [facility] [address] [facility]. [address] MCHC (RBC) [Mass/Vol] 33.7 g/dL Normal 32.0-35.0 [facility] Comment on above: Performed By: #### 1 0, 18931, 98121, 40320 #### [facility] [address] [facility] [place] [address], [facility] MCV (RBC) [Entitic vol] 92.7 fL Normal 82.0-98.0 [facility] Comment on above: Performed By: #### 1 0, 96623, 33966, 97567 #### [facility] [address] [place] [address], [facility] Monocytes (Bld) [#/Vol] 0.9 10*3/uL Normal 0.1-1.0 [facility] Comment on above: Performed By: #### 1 0070, 61997, 89790, 06347 #### [facility] [address] [facility] [place] [address], [facility] MONOS 7.0 % Normal 5.0-12.0 [facility] Comment on above: Performed By: #### 1 0070, 77667, 93098, 99061 #### [facility] [address] [facility] [place] [address], [facility] Neutrophils/100 WBC (Bld) 83.8 % High 40.0-72.0 [facility] Comment on above: Performed By: #### 1 0070, 95771, 68739, 88549 #### [facility] [address] [place] [address], [facility] Nucleated RBC/100 WBC (Bld) [Ratio] 0 % Normal 0-0 [facility] Comment on above: Performed By: #### 1 0070, 47750, 15627, 95004 #### [facility] [address] [place] [address], [facility] PLAT CNT 198 10*3/uL Normal 150-400 [facility] Comment on above: Performed By: #### 1 0070, 65082, 73839, 23533 #### [facility] [address] [facility] [place] [address], [facility] RBC (Bld) [#/Vol] 4.77 10*6/uL Normal 4.20-5.70 [facility] Comment on above: Performed By: #### 1 0070, 06567, 40204, 53345 #### [facility] [address] [facility] [place] [address], [facility] WBC (Bld) [#/Vol] 12.15 10*3/uL High 4.00-10.60 [facility] Comment on above: Performed By: #### 1 0070, 20982, 79559, 95024 #### [facility] [address] [place] [address], [place] LIVER BATTERYon 07-27-2021 Albumin [Mass/Vol] 3.3 g/dL Low 3.5-5.7 [facility] Comment on above: Order Comment: No: D o not add to previous draw Performed By: #### 1 0070, 04736, 17332, 89249 #### [facility] [address] [place] [address], [place] ALKALINE PHOSPH 124 IU/L High 34-104 [facility] Comment on above: Order Comment: No: D o not add to previous draw Performed By: #### 1 0070, 53819, 29347, 65973 #### [facility] [address] [place] [address], [place] ALT [Catalytic activity/Vol] 58 U/L High 7-52 [facility] Comment on above: Order Comment: No: D o not add to previous draw Performed By: #### 1 0070, 24033, 22834, 51382 #### [facility] [address] [place] [address], [place] AST [Catalytic activity/Vol] 48 U/L High 13-39 [facility] Comment on above: Order Comment: No: D o not add to previous draw Performed By: #### 1 0070, 55665, 36547, 64285 #### [facility] [address] [place] [address], [place] Bilirubin [Mass/Vol] 0.8 mg/dL Normal 0.3-1.0 [facility] Comment on above: Order Comment: No: D o not add to previous draw Performed By: #### 1 0070, 20397, 32307, 11001 #### [facility] [address] [place] [address], [place] Bilirubin.direct [Mass/Vol] 0.3 mg/dL High 0.0-0.2 [facility] Comment on above: Order Comment: No: D o not add to previous draw Performed By: #### 1 0070, 90433, 52204, 74383 #### [facility] [address] [place] [address], [facility] Protein [Mass/Vol] 6.2 g/dL Normal 6.0-8.3 [facility] Comment on above: Order Comment: No: D o not add to previous draw Performed By: #### 1 0070, 06045, 66835, 82346 #### [facility] [address] [place] [address], [facility] MAGNESIUM BLOODon 07-27-2021 Magnesium [Mass/Vol] 1.8 mg/dL Low 1.9-2.7 [facility] Comment on above: Order Comment: No: D o not add to previous draw Performed By: #### 1 0070, 31062, 25926, 09549 #### [facility] [address] [place] [address], [facility] PHOSPHORUS BLOODon 1 Phosphate [Mass/Vol] 2.9 mg/dL Normal 2.5-5.0 [facility] Comment on above: Order Comment: No: D o not add to previous draw Performed By: #### 1 0070, 99343, 07671, 51139 #### [facility] [address] [place] [address], [place] POC GLUCOSE LABon 07-27-2021 Glucose [Mass/Vol] 260 mg/dL High 70-100 [facility] Comment on above: Performed By: #### 8 5499 #### [facility] [address] [place] [address], [place] Glucose [Mass/Vol] 225 mg/dL High 70-100 [facility] Comment on above: Performed By: #### 1 0070, 88967, 62633, 48596 #### [facility] [address] [place] [address], [place] PROTHROMBIN TIMEon 1 INR Coag (PPP) [Relative time] 1.22 {INR} High 0.91-1.16 [facility] Comment on above: Order Comment: No: [...] CHEST 1995;108:231S-246S. Performed By: #### 1 0070, 11614, 83863, 10360 #### [facility] [address] [facility]. [address] PT Coag (PPP) [Time] 15.4 s High 12.3-14.8 [facility] Comment on above: Order Comment: No: D o not add to previous draw Result Comment: ALL RESULTS MUST BE INTERPRETED WITH RESPECT TO BLOOD DRAWING ARTIFACT OR DILUTION ERROR OF ANTICOAGULANT AT THE TIME OF SAMPLING. Performed By: #### 1 0070, 76609, 22630, 58878 #### [facility] [address] [facility] [place] [address], [facility] BASIC METABOLIC PANELon 10-2 Calcium [Mass/Vol] 8.5 mg/dL Low 8.6-10.3 [facility] Comment on above: Order Comment: No: D o not add to previous draw Performed By: #### 8 5499 #### [facility] [address] [place] [address], [place] Chloride [Moles/Vol] 108 mmol/L High 98-107 [facility] Comment on above: Order Comment: No: D o not add to previous draw Performed By: #### 8 5499 #### [facility] [address] [place] [address], [place] CO2 [Moles/Vol] 24 mmol/L Normal 21-31 [facility] Comment on above: Order Comment: No: D o not add to previous draw Performed By: #### 8 5499 #### [facility] [address] [place] [address], [place] Creatinine [Mass/Vol] 1.23 mg/dL Normal 0.70-1.30 [facility] Comment on above: Order Comment: No: D o not add to previous draw Performed By: #### 8 5499 #### [facility] [address] [place] [address], [place] eGFR- non- 60 ml/min/1.73sq m Abnormal >60 [facility] Comment on above: Order Comment: No: D o not add to previous draw Performed By: #### 8 5499 #### [facility] [address] [place] [address], [place] GFR/1.73 sq M.predicted among blacks MDRD (S/P/Bld) [Vol rate/Area] mL/min/{1.73_m2} Normal >60 [facility] Comment on above: Order Comment: No: D o not add to previous draw Performed By: #### 8 5499 #### [facility] [address] [place] [address], [place] Glucose [Mass/Vol] 141 mg/dL High 70-100 [facility] Comment on above: Order Comment: No: D o not add to previous draw Performed By: #### 8 5499 #### [facility] [address] [place] [address], [facility] Potassium [Moles/Vol] 3.5 mmol/L Normal 3.5-5.1 [facility] Comment on above: Order Comment: No: D o not add to previous draw Performed By: #### 8 5499 #### [facility] [address] [place] [address], [facility] Sodium [Moles/Vol] 139 mmol/L Normal 136-145 [facility] Comment on above: Order Comment: No: D o not add to previous draw Performed By: #### 8 5499 #### [facility] [address] [place] [address], [facility] Urea nitrogen [Mass/Vol] 18 mg/dL Normal 7-25 [facility] Comment on above: Order Comment: No: D o not add to previous draw Performed By: #### 8 5499 #### [facility] [address] [place] [id number] CBC COMPLETE BLOOD COUNTon - Erythrocyte distribution width (RBC) [Ratio] 13.2 % Normal 11.5-15.0 [facility] Comment on above: Order Comment: No: D o not add to previous draw Performed By: #### 1 0070, 90556, 25340, 94319 #### [facility] [address] [place] [id number], [facility] Hematocrit (Bld) [Volume fraction] 42.7 % Normal 39.0-50.0 [facility] Comment on above: Order Comment: No: D o not add to previous draw Performed By: #### 1 0070, 92907, 75420, 00436 #### [facility] [address] [place] [id number], [facility] Hemoglobin (Bld) [Mass/Vol] 14.5 g/dL Normal 13.0-17.0 [facility] Comment on above: Order Comment: No: D o not add to previous draw Performed By: #### 1 0070, 96993, 92898, 75776 #### [facility] [address] [place] [address], [facility] MCH (RBC) [Entitic mass] 32.0 pg Normal 27.0-33.0 [facility] Comment on above: Order Comment: No: D o not add to previous draw Performed By: #### 1 0070, 88254, 86128, 07217 #### [facility] [address] [place] [address], [facility] MCHC (RBC) [Mass/Vol] 34.0 g/dL Normal 32.0-35.0 [facility] Comment on above: Order Comment: No: D o not add to previous draw Performed By: #### 1 0070, 71116, 59456, 46072 #### [facility] [address] [facility] [place] [address], [facility] MCV (RBC) [Entitic vol] 94.3 fL Normal 82.0-98.0 [facility] Comment on above: Order Comment: No: D o not add to previous draw Performed By: #### 1 0070, 31689, 54400, 76725 #### [facility] [address] [facility] [place] [address], [facility] Nucleated RBC/100 WBC (Bld) [Ratio] 0 % Normal 0-0 [facility] Comment on above: Order Comment: No: D o not add to previous draw Performed By: #### 1 0070, 00027, 04738, 60073 #### [facility] [address] [facility] [place] [address], [facility] PLAT CNT 179 10*3/uL Normal 150-400 [facility] Comment on above: Order Comment: No: D o not add to previous draw Performed By: #### 1 0070, 29368, 74218, 22009 #### [facility] [address] [facility] [place] [address], [facility] RBC (Bld) [#/Vol] 4.53 10*6/uL Normal 4.20-5.70 [facility] Comment on above: Order Comment: No: D o not add to previous draw Performed By: #### 1 0070, 96072, 08539, 10528 #### [facility] [address] [place] [address], [place] WBC (Bld) [#/Vol] 7.86 10*3/uL Normal 4.00-10.60 [facility] Comment on above: Order Comment: No: D o not add to previous draw Performed By: #### 1 0070, 08159, 80077, 59604 #### [facility] [address] [place] [address], [facility] LIVER BATTERYon 07-26-2021 Albumin [Mass/Vol] 3.2 g/dL Low 3.5-5.7 [facility] Comment on above: Order Comment: No: D o not add to previous draw Performed By: #### 0 0071, 44826 #### [facility] [address] [place] [address], [place] ALKALINE PHOSPH 114 IU/L High 34-104 [facility] Comment on above: Order Comment: No: D o not add to previous draw Performed By: #### 0 0071, 87013 #### [facility] [address] [place] [address], [place] ALT [Catalytic activity/Vol] 37 U/L Normal 7-52 [facility] Comment on above: Order Comment: No: D o not add to previous draw Performed By: #### 0 0071, 99466 #### [facility] [address] [place] [address], [place] AST [Catalytic activity/Vol] 28 U/L Normal 13-39 [facility] Comment on above: Order Comment: No: D o not add to previous draw Performed By: #### 0 0071, 53071 #### [facility] [address] Bilirubin [Mass/Vol] 0.6 mg/dL Normal 0.3-1.0 [facility] Comment on above: Order Comment: No: D o not add to previous draw Performed By: #### 0 0071, 27505 #### [facility] [address] [place] [address], [facility] Bilirubin.direct [Mass/Vol] 0.1 mg/dL Normal 0.0-0.2 [facility] Comment on above: Order Comment: No: D o not add to previous draw Performed By: #### 0 0071, 48871 #### [facility] [address] [place] [address], [facility] Protein [Mass/Vol] 6.3 g/dL Normal 6.0-8.3 [facility] Comment on above: Order Comment: No: D o not add to previous draw Performed By: #### 0 0071, 28908 #### [facility] [address] Operative Reporton Operative Report MR#: [id number] I [facility] Pt. Name: Andry Pierre Room #: [id number] Discharge Date: Birthdate: 1960 OPERATIVE REPORT DATE [...] Olivier M.D. Date Trans: 07/26/2021 04:31 P/ VALENTINE_ELGIN:[id number] cc: Say Mccormick M.D. [address] [facility] [address] Normal [facility] POC GLUCOSE LABon 07-26-2021 Glucose [Mass/Vol] 155 mg/dL High 70-100 [facility] Comment on above: Performed By: #### 1 0070, 13720, 06135, 38242 #### [facility] [address] [place] [address], [facility] Glucose [Mass/Vol] 149 mg/dL High 70-100 [facility] Comment on above: Performed By: #### 8 5499 #### [facility] [address] [place] [address], [facility] Glucose [Mass/Vol] 123 mg/dL High 70-100 [facility] Comment on above: Performed By: #### 1 0070, 62007, 76628, 25142 #### [facility] [address] [place] [address], [facility] Glucose [Mass/Vol] 126 mg/dL High 70-100 [facility] Comment on above: Performed By: #### 8 5499 #### [facility] [address] [facility] PROTHROMBIN TIMEon 1 INR Coag (PPP) [Relative time] 1.20 {INR} High 0.91-1.16 [facility] Comment on above: Order Comment: [...] CHEST 1995;108:231S-246S. Performed By: #### 1 0070, 52895, 03787, 35780 #### [facility] [address] [place] [address], [facility] PT Coag (PPP) [Time] 15.2 s High 12.3-14.8 [facility] Comment on above: Order Comment: No: D o not add to previous draw Result Comment: ALL RESULTS MUST BE INTERPRETED WITH RESPECT TO BLOOD DRAWING ARTIFACT OR DILUTION ERROR OF ANTICOAGULANT AT THE TIME OF SAMPLING. Performed By: #### 1 0070, 98087, 00847, 63424 #### [facility] [address] [facility]. [address] APTTon 07-25-2021 aPTT Coag (Bld) [Time] 29.3 s Normal 25.0-35.0 [facility] Comment on above: Order Comment: No: [...] THIS PURPOSE. Performed By: #### 1 0070, 49070, 29402, 14099 #### [facility] [address] [place] [address], [facility] aPTT Coag (Bld) [Time] 28.7 s Normal 25.0-35.0 [facility] Comment on above: Order Comment: No: [...] THIS PURPOSE. Performed By: #### 1 0070, 18690, 42778, 13807 #### [facility] [address] [place] [address], [facility] BASIC METABOLIC PANELon 10-2 Calcium [Mass/Vol] 8.3 mg/dL Low 8.6-10.3 [facility] Comment on above: Order Comment: No: D o not add to previous draw Performed By: #### 1 0070, 85546, 69101, 34236 #### [facility] [address] [place] [address], [facility] Chloride [Moles/Vol] 111 mmol/L High 98-107 [facility] Comment on above: Order Comment: No: D o not add to previous draw Performed By: #### 1 0070, 23576, 62701, 09457 #### [facility] [address] [place] [address], [facility] CO2 [Moles/Vol] 26 mmol/L Normal 21-31 [facility] Comment on above: Order Comment: No: D o not add to previous draw Performed By: #### 1 0070, 73069, 22559, 52202 #### [facility] [address] [place] [address], [facility] Creatinine [Mass/Vol] 1.25 mg/dL Normal 0.70-1.30 [facility] Comment on above: Order Comment: No: D o not add to previous draw Performed By: #### 1 0070, 44182, 41081, 97245 #### [facility] [address] [place] [id number], [facility] eGFR- non- 59 ml/min/1.73sq m Abnormal >60 [facility] Comment on above: Order Comment: No: D o not add to previous draw Performed By: #### 1 0070, 61010, 41107, 27606 #### [facility] [address] [place] [address], [facility] GFR/1.73 sq M.predicted among blacks MDRD (S/P/Bld) [Vol rate/Area] mL/min/{1.73_m2} Normal >60 [facility] Comment on above: Order Comment: No: D o not add to previous draw Performed By: #### 1 0070, 26251, 14467, 96508 #### [facility] [address] [place] [address], [facility] Glucose [Mass/Vol] 107 mg/dL High 70-100 [facility] Comment on above: Order Comment: No: D o not add to previous draw Performed By: #### 1 0070, 29756, 79739, 50106 #### [facility] [address] [place] [address], [facility] Potassium [Moles/Vol] 3.6 mmol/L Normal 3.5-5.1 [facility] Comment on above: Order Comment: No: D o not add to previous draw Performed By: #### 1 0070, 53230, 32510, 35957 #### [facility] [address] [place] [address], [facility] Sodium [Moles/Vol] 143 mmol/L Normal 136-145 [facility] Comment on above: Order Comment: No: D o not add to previous draw Performed By: #### 1 0070, 53224, 40278, 33656 #### [facility] [address] [place] [address], [facility] Urea nitrogen [Mass/Vol] 22 mg/dL Normal 7-25 [facility] Comment on above: Order Comment: No: D o not add to previous draw Performed By: #### 1 0070, 26642, 47831, 91758 #### [facility] [address] [place] [address], [facility] CBC COMPLETE BLOOD COUNTon Erythrocyte distribution width (RBC) [Ratio] 13.3 % Normal 11.5-15.0 [facility] Comment on above: Order Comment: No: D o not add to previous draw Performed By: #### 1 0070, 91380, 23156, 16635 #### [facility] [address] [place] [address], [facility] Hematocrit (Bld) [Volume fraction] 46.9 % Normal 39.0-50.0 [facility] Comment on above: Order Comment: No: D o not add to previous draw Performed By: #### 1 0070, 14077, 70718, 67764 #### [facility] [address] [place] [address], [facility] Hemoglobin (Bld) [Mass/Vol] 15.4 g/dL Normal 13.0-17.0 [facility] Comment on above: Order Comment: No: D o not add to previous draw Performed By: #### 1 0070, 13330, 13503, 67918 #### [facility] [address] [place] [address], [facility] MCH (RBC) [Entitic mass] 31.3 pg Normal 27.0-33.0 [facility] Comment on above: Order Comment: No: D o not add to previous draw Performed By: #### 1 0070, 78758, 57226, 09428 #### [facility] [address] [place] [address], [facility] MCHC (RBC) [Mass/Vol] 32.8 g/dL Normal 32.0-35.0 [facility] Comment on above: Order Comment: No: D o not add to previous draw Performed By: #### 1 0070, 61584, 04041, 22265 #### [facility] [address] [place] [address], [facility] MCV (RBC) [Entitic vol] 95.3 fL Normal 82.0-98.0 [facility] Comment on above: Order Comment: No: D o not add to previous draw Performed By: #### 1 0070, [id number], [id number], [id number] #### [facility] [address] [place] [address], [facility] Nucleated RBC/100 WBC (Bld) [Ratio] 0 % Normal 0-0 [facility] Comment on above: Order Comment: No: D o not add to previous draw Performed By: #### 1 0070, [id number], [id number], [id number] #### [facility] [address] [place] [address], [facility] PLAT CNT 183 10*3/uL Normal 150-400 [facility] Comment on above: Order Comment: No: D o not add to previous draw Performed By: #### 1 0070, [id number], [id number], [id number] #### [facility] [address] [facility] [place] [address], [facility] RBC (Bld) [#/Vol] 4.92 10*6/uL Normal 4.20-5.70 [facility] Comment on above: Order Comment: No: D o not add to previous draw Performed By: #### 1 0070, 67760, 26940, 96504 #### [facility] [address] [facility] [place] [address], [facility] WBC (Bld) [#/Vol] 9.70 10*3/uL Normal 4.00-10.60 [facility] Comment on above: Order Comment: No: D o not add to previous draw Performed By: #### 1 0070, 92440, 57487, 66888 #### [facility] [address] [facility] [place] [address], [place] LIPASE BLOODon 07-25-2021 LIPASE 34 Units/L Normal 11-82 [facility] Comment on above: Order Comment: No: D o not add to previous draw Performed By: #### 1 0070, 09756, 94332, 73483 #### [facility] [address] [place] [address], [place] LIVER BATTERYon 07-25-2021 Albumin [Mass/Vol] 3.0 g/dL Low 3.5-5.7 [facility] Comment on above: Order Comment: No: D o not add to previous draw Performed By: #### 1 0070, 39455, 40692, 69715 #### [facility] [address] [place] [address], [place] ALKALINE PHOSPH 113 IU/L High 34-104 [facility] Comment on above: Order Comment: No: D o not add to previous draw Performed By: #### 1 0070, 70447, 58011, 94368 #### [facility] [address] [place] [address], [place] ALT [Catalytic activity/Vol] 37 U/L Normal 7-52 [facility] Comment on above: Order Comment: No: D o not add to previous draw Performed By: #### 1 0070, 92679, 88587, 05741 #### [facility] [address] [place] [address], [place] AST [Catalytic activity/Vol] 36 U/L Normal 13-39 [facility] Comment on above: Order Comment: No: D o not add to previous draw Performed By: #### 1 0070, 68750, 99887, 31792 #### [facility] [address] [place] [address], [place] Bilirubin [Mass/Vol] 0.6 mg/dL Normal 0.3-1.0 [facility] Comment on above: Order Comment: No: D o not add to previous draw Performed By: #### 1 0070, 38466, 94857, 98421 #### [facility] [address] [place] [address], [place] Bilirubin.direct [Mass/Vol] 0.1 mg/dL Normal 0.0-0.2 [facility] Comment on above: Order Comment: No: D o not add to previous draw Performed By: #### 1 0070, 03163, 63494, 57057 #### [facility] [address] [place] [address], [facility] Protein [Mass/Vol] 5.3 g/dL Low 6.0-8.3 [facility] Comment on above: Order Comment: No: D o not add to previous draw Performed By: #### 1 0070, 08854, 43825, 83772 #### [facility] [address] [place] [address], [facility] POC GLUCOSE LABon 07-25-2021 Glucose [Mass/Vol] 388 mg/dL High 70-100 [facility] Comment on above: Performed By: #### 1 0070, 45809, 66675, 05679 #### [facility] [address] [facility] [place] [address], [facility] Glucose [Mass/Vol] 173 mg/dL High 70-100 [facility] Comment on above: Performed By: #### 8 5499 #### [facility] [address] [facility] [place] [address], [facility] Glucose [Mass/Vol] 178 mg/dL High 70-100 [facility] Comment on above: Performed By: #### 8 5499 #### [facility] [address] [facility] [place] [place] [address], [facility] Glucose [Mass/Vol] 106 mg/dL High 70-100 [facility] Comment on above: Performed By: #### 1 0070, 72314, 67651, 86893 #### [facility] [address] [facility] [place] [address], [facility] PROTHROMBIN TIMEon INR Coag (PPP) [Relative time] 1.30 {INR} High 0.91-1.16 [facility] Comment on above: Order Comment: No: [...] CHEST 1995;108:231S-246S. Performed By: #### 1 0070, 99187, 78762, 21755 #### [facility] [address] PT Coag (PPP) [Time] 16.2 s High 12.3-14.8 [facility] Comment on above: Order Comment: No: D o not add to previous draw Result Comment: ALL RESULTS MUST BE INTERPRETED WITH RESPECT TO BLOOD DRAWING ARTIFACT OR DILUTION ERROR OF ANTICOAGULANT AT THE TIME OF SAMPLING. Performed By: #### 1 0070, 52695, 31004, 00981 #### [facility] [address] UFH HEPARIN ASSAYon 07-25-20 UNFRACTIONATED HEPARIN <0.10 Critically low 0.30-0.70 [facility] Comment on above: Result Comment: Resu lts called. [place]ur[place] 4D [place] [id number], 25-Jul-2021. Patient is not on anything that would raise the uFH value per nurse Caitlin. Rivaroxaban and Apixaban will interfere with the anti Xa assay used to monitor UFH and LMWH. Performed By: #### 1 0070, 75252, 84256, 59851 #### [facility] [address] [place] [address], [facility] UNFRACTIONATED HEPARIN <0.10 Critically low 0.30-0.70 [facility] Comment on above: Result Comment: Resu lt checked and called. Accurately read back by Caitlin Koch RN at 1024 Rivaroxaban and Apixaban will interfere with the anti Xa assay used to monitor UFH and LMWH. Performed By: #### 1 0070, 30167, 71498, 60648 #### [facility] [address] [place] [address], [facility] BASIC METABOLIC PANELon 10- Calcium [Mass/Vol] 8.7 mg/dL Normal 8.6-10.3 [facility] Comment on above: Order Comment: No: D o not add to previous draw Performed By: #### 0 0071, 86328 #### [facility] [address] [place] [address], [facility] Chloride [Moles/Vol] 105 mmol/L Normal 98-107 [facility] Comment on above: Order Comment: No: D o not add to previous draw Performed By: #### 0 0071, 59916 #### [facility] [address] [place] [address], [facility] CO2 [Moles/Vol] 30 mmol/L Normal 21-31 [facility] Comment on above: Order Comment: No: D o not add to previous draw Performed By: #### 0 0071, 80470 #### [facility] [address] [place] [id number], [facility] Creatinine [Mass/Vol] 1.52 mg/dL High 0.70-1.30 [facility] Comment on above: Order Comment: No: D o not add to previous draw Performed By: #### 0 0071, 01660 #### [facility] [address] [place] [id number], [facility] eGFR- 57 ml/min/1.73sq m Abnormal >60 [facility] Comment on above: Order Comment: No: D o not add to previous draw Performed By: #### 0 0071, 65466 #### [facility] [address] [place] [address], [facility] eGFR- non- 47 ml/min/1.73sq m Abnormal >60 [facility] Comment on above: Order Comment: No: D o not add to previous draw Performed By: #### 0 0071, 05180 #### [facility] [address] [place] [address], [place] Glucose [Mass/Vol] 331 mg/dL High 70-100 [facility] Comment on above: Order Comment: No: D o not add to previous draw Performed By: #### 0 0071, 01725 #### [facility] [address] [place] [address], [place] Potassium [Moles/Vol] 4.3 mmol/L Normal 3.5-5.1 [facility] Comment on above: Order Comment: No: D o not add to previous draw Performed By: #### 0 0071, 12971 #### [facility] [address] [place] [address], [place] Sodium [Moles/Vol] 139 mmol/L Normal 136-145 [facility] Comment on above: Order Comment: No: D o not add to previous draw Performed By: #### 0 0071, 50987 #### [facility] [address] [place] [address], [place] Urea nitrogen [Mass/Vol] 26 mg/dL High 7-25 [facility] Comment on above: Order Comment: No: D o not add to previous draw Performed By: #### 0 0071, 61038 #### [facility] [address] [place] [address], [place] CBC COMPLETE BLOOD COUNTon Erythrocyte distribution width (RBC) [Ratio] 13.2 % Normal 11.5-15.0 [facility] Comment on above: Order Comment: No: D o not add to previous draw Performed By: #### 1 0070, 69666, 14371, 67529 #### [facility] [address] [place] [address], [facility] Hematocrit (Bld) [Volume fraction] 42.9 % Normal 39.0-50.0 [facility] Comment on above: Order Comment: No: D o not add to previous draw Performed By: #### 1 0070, 45181, 57993, 39720 #### [facility] [address] [place] [address], [facility] Hemoglobin (Bld) [Mass/Vol] 13.7 g/dL Normal 13.0-17.0 [facility] Comment on above: Order Comment: No: D o not add to previous draw Performed By: #### 1 0070, 67975, 01507, 01900 #### [facility] [address] [place] [address], [facility] MCH (RBC) [Entitic mass] 30.9 pg Normal 27.0-33.0 [facility] Comment on above: Order Comment: No: D o not add to previous draw Performed By: #### 1 0070, 86437, 55115, 22614 #### [facility] [address] [place] [address], [facility] MCHC (RBC) [Mass/Vol] 31.9 g/dL Low 32.0-35.0 [facility] Comment on above: Order Comment: No: D o not add to previous draw Performed By: #### 1 0070, 87073, 85356, 91387 #### [facility] [address] [place] [address], [facility] MCV (RBC) [Entitic vol] 96.6 fL Normal 82.0-98.0 [facility] Comment on above: Order Comment: No: D o not add to previous draw Performed By: #### 1 0070, 37980, 75129, 87771 #### [facility] [address] [place] [id number], [facility] Nucleated RBC/100 WBC (Bld) [Ratio] 0 % Normal 0-0 [facility] Comment on above: Order Comment: No: D o not add to previous draw Performed By: #### 1 0070, 71518, 56623, 42456 #### [facility] [address] [place] [address], [facility] PLAT CNT 184 10*3/uL Normal 150-400 [facility] Comment on above: Order Comment: No: D o not add to previous draw Performed By: #### 1 0070, 24720, 69095, 15220 #### [facility] [address] [place] [address], [facility] RBC (Bld) [#/Vol] 4.44 10*6/uL Normal 4.20-5.70 [facility] Comment on above: Order Comment: No: D o not add to previous draw Performed By: #### 1 0070, 05838, 74584, 10641 #### [facility] [address] [place] [address], [facility] WBC (Bld) [#/Vol] 8.42 10*3/uL Normal 4.00-10.60 [facility] Comment on above: Order Comment: No: D o not add to previous draw Performed By: #### 1 0070, 43753, 39585, 73660 #### [facility] [address] [place] [address], [facility] ERCPon 07-24-2021 ERCP [facility] Department of Radiology [address] [place] [id number] Patient Name: ANDRY PIERRE : 1960 Sex: M Age: Race: White Pt. Location: [id number] Patient Status: I Ordered Date: 07/24/2021 7:00:00 [...] details. Electronically signed: Khoa Chahal. Transcribed by: [email or web address], User Resident: Electronically Signed by: KHOA CHAHAL @ 07/25/2021 08:48 AM Normal [facility] Comment on above: Order Comment: ERCP Endoscopy Reporton Endoscopy Report MR#: [id number] [facility] Pt. Name: Andry Pierre Surgery Date: 07/24/2021 Room #: [facility] [id number] Date of : 1960 PROCEDURE NOTE ATTENDING: Amy Remy M.D. MANAGER STUDIO: Cyrus Decker MD PROCEDURE: ERCP with biliary [...] P/Cyrus Decker MD Date Trans: 07/24/2021 09:24 P/angeleso [id number] cc: Say Mccormick M.D. [address] [place] [address] Normal [facility] LIVER BATTERYon 07-24-2021 Albumin [Mass/Vol] 3.3 g/dL Low 3.5-5.7 [facility] Comment on above: Order Comment: No: D o not add to previous draw Performed By: #### 0 0071, 84522 #### [facility] [address] [place] [address], [place] ALKALINE PHOSPH 106 IU/L High 34-104 [facility] Comment on above: Order Comment: No: D o not add to previous draw Performed By: #### 0 0071, 82847 #### [facility] [address] [place] [address], [place] ALT [Catalytic activity/Vol] 26 U/L Normal 7-52 [facility] Comment on above: Order Comment: No: D o not add to previous draw Performed By: #### 0 0071, 27082 #### [facility] [address] [place] [address], [place] AST [Catalytic activity/Vol] 17 U/L Normal 13-39 [facility] Comment on above: Order Comment: No: D o not add to previous draw Performed By: #### 0 0071, 19473 #### [facility] [address] [place] [address], [place] Bilirubin [Mass/Vol] 0.3 mg/dL Normal 0.3-1.0 [facility] Comment on above: Order Comment: No: D o not add to previous draw Performed By: #### 0 0071, 77409 #### [facility] [address] [place] [address], [place] Bilirubin.direct [Mass/Vol] 0.0 mg/dL Normal 0.0-0.2 [facility] Comment on above: Order Comment: No: D o not add to previous draw Performed By: #### 0 0071, 39442 #### [facility] [address] [place] [address], [place] Protein [Mass/Vol] 6.1 g/dL Normal 6.0-8.3 [facility] Comment on above: Order Comment: No: D o not add to previous draw Performed By: #### 0 0071, 07734 #### [facility] [address] [place] [address], [place] POC GLUCOSE LABon 07-24-2021 Glucose [Mass/Vol] 89 mg/dL Normal 70-100 [facility] Comment on above: Performed By: #### 8 5499 #### [facility] [address] [place] [address], [place] Glucose [Mass/Vol] 89 mg/dL Normal 70-100 [facility] Comment on above: Performed By: #### 1 0070, 27906, 12364, 37465 #### [facility] [address] [place] [address], [place] Glucose [Mass/Vol] 166 mg/dL High 70-100 [facility] Comment on above: Performed By: #### 8 5499 #### [facility] [address] [place] [address], [place] Glucose [Mass/Vol] 391 mg/dL High 70-100 [facility] Comment on above: Performed By: #### 8 5499 #### [facility] [address] [place] [address], [place] POC SARS COV2 ANTIGEN NEGATI VEon 07-24-2021 POC SARS COV2 ANTIGEN NEG Negative Normal NEGATIVE [facility] Comment on above: Result Comment: Nega [...] signs and symptoms consistent with COVID-19. The [employer] COVID-19 Ag Card is a lateral flow [...] Accreditation. Performed By: #### 8 5499 #### [facility] [address] [facility]. [address] PROTHROMBIN TIMEon 1 INR Coag (PPP) [Relative time] 1.53 {INR} High 0.91-1.16 [facility] Comment on above: Order Comment: No: [...] CHEST 1995;108:231S-246S. Performed By: #### 1 0070, 96172, 97079, 62833 #### [facility] [address] [facility] [place] [address], [facility] PT Coag (PPP) [Time] 18.3 s High 12.3-14.8 [facility] Comment on above: Order Comment: No: D o not add to previous draw Result Comment: ALL RESULTS MUST BE INTERPRETED WITH RESPECT TO BLOOD DRAWING ARTIFACT OR DILUTION ERROR OF ANTICOAGULANT AT THE TIME OF SAMPLING. Performed By: #### 1 0070, 77141, 59916, 81216 #### [facility] [address] COMP METABOLIC PANELon 07-23 Albumin [Mass/Vol] 3.5 g/dL Normal 3.5-5.7 [facility] Comment on above: Order Comment: No: D o not add to previous draw Performed By: #### 8 5499 #### [facility] [address] [facility] [place] [address], [facility] ALKALINE PHOSPH 122 IU/L High 34-104 [facility] Comment on above: Order Comment: No: D o not add to previous draw Performed By: #### 8 5499 #### [facility] [address] [facility] [place] [address], [facility] ALT [Catalytic activity/Vol] 32 U/L Normal 7-52 [facility] Comment on above: Order Comment: No: D o not add to previous draw Performed By: #### 8 5499 #### [facility] [address] [facility] [place] [address], [place] AST [Catalytic activity/Vol] 22 U/L Normal 13-39 [facility] Comment on above: Order Comment: No: D o not add to previous draw Performed By: #### 8 5499 #### [facility] [address] [place] [address], [place] Bilirubin [Mass/Vol] 0.4 mg/dL Normal 0.3-1.0 [facility] Comment on above: Order Comment: No: D o not add to previous draw Performed By: #### 8 5499 #### [facility] [address] [place] [address], [place] Calcium [Mass/Vol] 8.5 mg/dL Low 8.6-10.3 [facility] Comment on above: Order Comment: No: D o not add to previous draw Performed By: #### 8 5499 #### [facility] [address] [place] [address], [place] Chloride [Moles/Vol] 110 mmol/L High 98-107 [facility] Comment on above: Order Comment: No: D o not add to previous draw Performed By: #### 8 5499 #### [facility] [address] [place] [address], [place] CO2 [Moles/Vol] 23 mmol/L Normal 21-31 [facility] Comment on above: Order Comment: No: D o not add to previous draw Performed By: #### 8 5499 #### [facility] [address] [place] [address], [place] Creatinine [Mass/Vol] 1.33 mg/dL High 0.70-1.30 [facility] Comment on above: Order Comment: No: D o not add to previous draw Performed By: #### 8 5499 #### [facility] [address] [place] [address], [place] eGFR- non- 55 ml/min/1.73sq m Abnormal >60 [facility] Comment on above: Order Comment: No: D o not add to previous draw Performed By: #### 8 5499 #### [facility] [address] [place] [address], [place] GFR/1.73 sq M.predicted among blacks MDRD (S/P/Bld) [Vol rate/Area] mL/min/{1.73_m2} Normal >60 [facility] Comment on above: Order Comment: No: D o not add to previous draw Performed By: #### 8 5499 #### [facility] [address] [place] [address], [place] Glucose [Mass/Vol] 198 mg/dL High 70-100 [facility] Comment on above: Order Comment: No: D o not add to previous draw Performed By: #### 8 5499 #### [facility] [address] [place] [address], [place] Potassium [Moles/Vol] 3.5 mmol/L Normal 3.5-5.1 [facility] Comment on above: Order Comment: No: D o not add to previous draw Performed By: #### 8 5499 #### [facility] [address] [place] [address], [place] Protein [Mass/Vol] 6.3 g/dL Normal 6.0-8.3 [facility] Comment on above: Order Comment: No: D o not add to previous draw Performed By: #### 8 5499 #### [facility] [address] [place] [address], [place] Sodium [Moles/Vol] 142 mmol/L Normal 136-145 [facility] Comment on above: Order Comment: No: D o not add to previous draw Performed By: #### 8 5499 #### [facility] [address] [place] [address], [place] Urea nitrogen [Mass/Vol] 25 mg/dL Normal 7-25 [facility] Comment on above: Order Comment: No: D o not add to previous draw Performed By: #### 8 5499 #### [facility] [address] [place] [address], [facility] POC GLUCOSE LABon 07-23-2021 Glucose [Mass/Vol] 325 mg/dL High 70-100 [facility] Comment on above: Performed By: #### 8 5499 #### [facility] [address] [place] [address], [place] Glucose [Mass/Vol] 290 mg/dL High 70-100 [facility] Comment on above: Performed By: #### 1 0070, 26231, 72312, 88608 #### [facility] [address] [place] [address], [place] Glucose [Mass/Vol] 253 mg/dL High 70-100 [facility] Comment on above: Performed By: #### 1 0070, 42115, 48773, 62295 #### [facility] [address] [place] [address], [place] Glucose [Mass/Vol] 211 mg/dL High 70-100 [facility] Comment on above: Performed By: #### 8 5499 #### [facility] [address] [place] [address], [place] PROTHROMBIN TIMEon INR Coag (PPP) [Relative time] 1.92 {INR} High 0.91-1.16 [facility] Comment on above: Order Comment: Unkno [...] 1995;108:231S-246S. Performed By: #### 8 5499 #### [facility] [address] PT Coag (PPP) [Time] 21.9 s High 12.3-14.8 [facility] Comment on above: Order Comment: Unkno wn Result Comment: ALL RESULTS MUST BE INTERPRETED WITH RESPECT TO BLOOD DRAWING ARTIFACT OR DILUTION ERROR OF ANTICOAGULANT AT THE TIME OF SAMPLING. Performed By: #### 8 5499 #### [facility] [address] APTTon 07-22-2021 aPTT Coag (Bld) [Time] 37.1 s High 25.0-35.0 [facility] Comment on above: Order Comment: No: [...] THIS PURPOSE. Performed By: #### 1 0070, 46317, 04984, 28048 #### [facility] [address] BASIC METABOLIC PANELon 07-06 Calcium [Mass/Vol] 8.3 mg/dL Low 8.6-10.3 [facility] Comment on above: Order Comment: No: D o not add to previous draw Performed By: #### 8 5499 #### [facility] [address] [place] [address], [place] Chloride [Moles/Vol] 109 mmol/L High 98-107 [facility] Comment on above: Order Comment: No: D o not add to previous draw Performed By: #### 8 5499 #### [facility] [address] [place] [address], [place] CO2 [Moles/Vol] 28 mmol/L Normal 21-31 [facility] Comment on above: Order Comment: No: D o not add to previous draw Performed By: #### 8 5499 #### [facility] [address] [place] [address], [place] Creatinine [Mass/Vol] 1.48 mg/dL High 0.70-1.30 [facility] Comment on above: Order Comment: No: D o not add to previous draw Performed By: #### 8 5499 #### [facility] [address] [place] [address], [place] eGFR- 59 ml/min/1.73sq m Abnormal >60 [facility] Comment on above: Order Comment: No: D o not add to previous draw Performed By: #### 8 5499 #### [facility] [address] [place] [address], [place] eGFR- non- 48 ml/min/1.73sq m Abnormal >60 [facility] Comment on above: Order Comment: No: D o not add to previous draw Performed By: #### 8 5499 #### [facility] [address] [place] [address], [place] Glucose [Mass/Vol] 216 mg/dL High 70-100 [facility] Comment on above: Order Comment: No: D o not add to previous draw Performed By: #### 8 [id number] #### [facility] [address] [place] [address], [place] Potassium [Moles/Vol] 4.6 mmol/L Normal 3.5-5.1 [facility] Comment on above: Order Comment: No: D o not add to previous draw Performed By: #### 8 [id number] #### [facility] [address] [place] [address], [facility] Sodium [Moles/Vol] 141 mmol/L Normal 136-145 [facility] Comment on above: Order Comment: No: D o not add to previous draw Performed By: #### 8 [id number] #### [facility] [address] [place] [address], [facility] Urea nitrogen [Mass/Vol] 26 mg/dL High 7-25 [facility] Comment on above: Order Comment: No: D o not add to previous draw Performed By: #### 8 [id number] #### [facility] [address] [place], [place] [address] CBC COMPLETE BLOOD COUNTon Erythrocyte distribution width (RBC) [Ratio] 13.2 % Normal 11.5-15.0 [facility] Comment on above: Order Comment: No: D o not add to previous draw Performed By: #### 8 [id number] #### [facility] [address] [place] [address], [place] Hematocrit (Bld) [Volume fraction] 45.8 % Normal 39.0-50.0 [facility] Comment on above: Order Comment: No: D o not add to previous draw Performed By: #### 8 [id number] #### [facility] [address] [place] [address], [place] Hemoglobin (Bld) [Mass/Vol] 14.8 g/dL Normal 13.0-17.0 [facility] Comment on above: Order Comment: No: D o not add to previous draw Performed By: #### 8 [id number] #### [facility] [address] [place] [address], [place] MCH (RBC) [Entitic mass] 31.0 pg Normal 27.0-33.0 [facility] Comment on above: Order Comment: No: D o not add to previous draw Performed By: #### 8 [id number] #### [facility] 3000 [facility]. [address] MCHC (RBC) [Mass/Vol] 32.3 g/dL Normal 32.0-35.0 [facility] Comment on above: Order Comment: No: D o not add to previous draw Performed By: #### 8 [id number] #### [facility] [address] [facility]. [address] MCV (RBC) [Entitic vol] 95.8 fL Normal 82.0-98.0 [facility] Comment on above: Order Comment: No: D o not add to previous draw Performed By: #### 8 [id number] #### [facility] [address] Nucleated RBC/100 WBC (Bld) [Ratio] 0 % Normal 0-0 [facility] Comment on above: Order Comment: No: D o not add to previous draw Performed By: #### 8 [id number] #### [facility] [address] [facility] [place] [address], [facility] PLAT CNT 209 10*3/uL Normal 150-400 [facility] Comment on above: Order Comment: No: D o not add to previous draw Performed By: #### 8 [id number] #### [facility] [address] [facility] [place] [address], [facility] RBC (Bld) [#/Vol] 4.78 10*6/uL Normal 4.20-5.70 [facility] Comment on above: Order Comment: No: D o not add to previous draw Performed By: #### 8 [id number] #### [facility] [address] [facility] [place] [address], [facility] WBC (Bld) [#/Vol] 8.89 10*3/uL Normal 4.00-10.60 [facility] Comment on above: Order Comment: No: D o not add to previous draw Performed By: #### 8 [id number] #### [facility] [address] [place] [address], [facility] LIVER BATTERYon 07-22-2021 Albumin [Mass/Vol] 3.2 g/dL Low 3.5-5.7 [facility] Comment on above: Performed By: #### 8 [id number] #### [facility] [address] [place] [address], [place] ALKALINE PHOSPH 111 IU/L High 34-104 [facility] Comment on above: Performed By: #### 8 [id number] #### [facility] [address] [place] [address], [place] ALT [Catalytic activity/Vol] 23 U/L Normal 7-52 [facility] Comment on above: Performed By: #### 8 [id number] #### [facility] [address] [place] [address], [place] AST [Catalytic activity/Vol] 17 U/L Normal 13-39 [facility] Comment on above: Performed By: #### 8 [id number] #### [facility] [address] [place] [address], [place] Bilirubin [Mass/Vol] 0.3 mg/dL Normal 0.3-1.0 [facility] Comment on above: Performed By: #### 8 [id number] #### [facility] [address] [place] [address], [place] Bilirubin.direct [Mass/Vol] 0.0 mg/dL Normal 0.0-0.2 [facility] Comment on above: Performed By: #### 8 [id number] #### [facility] [address] [place] [address], [place] Protein [Mass/Vol] 5.5 g/dL Low 6.0-8.3 [facility] Comment on above: Performed By: #### 8 [id number] #### [facility] [address] [place] [address], [place] MAGNESIUM BLOODon 07-22-2021 Magnesium [Mass/Vol] 2.0 mg/dL Normal 1.9-2.7 [facility] Comment on above: Order Comment: No: D o not add to previous draw Performed By: #### 8 [id number] #### [facility] [address] [place] [address], [place] PHOSPHORUS BLOODon 1 Phosphate [Mass/Vol] 3.0 mg/dL Normal 2.5-5.0 [facility] Comment on above: Order Comment: No: D o not add to previous draw Performed By: #### 8 [id number] #### [facility] [address] [place] [address], [place] POC GLUCOSE LABon 07-22-2021 Glucose [Mass/Vol] 223 mg/dL High 70-100 [facility] Comment on above: Performed By: #### 1 0070, 94125, 34742, 16603 #### [facility] [address] [place] [address], [place] Glucose [Mass/Vol] 222 mg/dL High 70-100 [facility] Comment on above: Performed By: #### 8 [id number] #### [facility] [address] [place] [address], [place] Glucose [Mass/Vol] 245 mg/dL High 70-100 [facility] Comment on above: Performed By: #### 8 [id number] #### [facility] [address] [place] [address], [place] Glucose [Mass/Vol] 202 mg/dL High 70-100 [facility] Comment on above: Performed By: #### 1 0070, 86252, 46573, 19486 #### [facility] [address] [place] [address], [place] PROTHROMBIN TIMEon INR Coag (PPP) [Relative time] 2.27 {INR} High 0.91-1.16 [facility] Comment on above: Order Comment: No: [...] CHEST 1995;[id number]. Performed By: #### 1 0070, 01264, 80979, 73147 #### [facility] [address] [facility]. [address] PT Coag (PPP) [Time] 24.9 s High 12.3-14.8 [facility] Comment on above: Order Comment: No: D o not add to previous draw Result Comment: ALL RESULTS MUST BE INTERPRETED WITH RESPECT TO BLOOD DRAWING ARTIFACT OR DILUTION ERROR OF ANTICOAGULANT AT THE TIME OF SAMPLING. Performed By: #### 1 0070, 13103, 16565, 85334 #### [facility] [address] Basic Metabolic Panelon 07-06 Calcium [Mass/Vol] 9.4 mg/dL Normal 8.2-10.2 [facility] Comment on above: Performed By: #### H EPATIC, CBC, LIPASE, BMP #### [facility] [address] [place] [address] [place] Chloride [Moles/Vol] 103 mmol/L Normal 95-114 [facility] Comment on above: Performed By: #### H EPATIC, CBC, LIPASE, BMP #### [facility] [address] CO2 [Moles/Vol] 26.9 mmol/L Normal 22.0-30.0 [facility] Comment on above: Performed By: #### H EPATIC, CBC, LIPASE, BMP #### [facility] [address] Creatinine [Mass/Vol] 1.66 mg/dL High 0.64-1.27 [facility] Comment on above: Performed By: #### H EPATIC, CBC, LIPASE, BMP #### [address] Creatinine Clr Calc Pharmacy 68.90 [facility] Comment on above: Performed By: #### H EPATIC, CBC, LIPASE, BMP #### [facility] [address] [place] [address] Estimated GFR ( Beata 51 [facility] Comment on above: Result Comment: GFR estimated reference range: According to KDOQI guidelines, <60 ml/min/1.73m2 is sufficient to diagnose a patient with chronic kidney disease. Performed By: #### H EPATIC, CBC, LIPASE, BMP #### [facility] [address] [place] [address] Estimated GFR (Non- Am 42 [facility] Comment on above: Performed By: #### H EPATIC, CBC, LIPASE, BMP #### [facility] [address] [place] [address] [place] Glucose [Mass/Vol] 442 mg/dL High 70-100 [facility] Comment on above: Result Comment: [place] Glucose Reference Range is dependent on time and content of last meal. Glucose of more than 200 mg/dL in a nonstressed, ambulatory subject supports the diagnosis of Diabetes Mellitus. ADA recommended reference range Performed By: #### H EPATIC, CBC, LIPASE, BMP #### [facility] [address] [place] [id number] [place] Potassium [Moles/Vol] 4.1 mmol/L Normal 3.5-5.1 [facility] Comment on above: Performed By: #### H EPATIC, CBC, LIPASE, BMP #### [facility] [address] [place] [id number] [facility] Sodium [Moles/Vol] 140 mmol/L Normal 136-146 [facility] Comment on above: Performed By: #### H EPATIC, CBC, LIPASE, BMP #### [facility] [address] Urea nitrogen [Mass/Vol] 29 mg/dL High 9-23 [facility] Comment on above: Performed By: #### H EPATIC, CBC, LIPASE, BMP #### [facility] [address] COVID-19 Antigenon 1 COVID-19 [facility] [...] its performance Tamera Disclaimer characteristic determined by [employer] and Tamera Disclaimer validated at [facility]. This Tamera Disclaimer test has not [...] terminated or revoked sooner. PERFORMED BY: [facility] [place] [address] PATHOLOGIST INSPECTOR REPAIRER TO [place] M.D. [facility] Comment on above: Performed By: #### C OVID-19 TAMERA, SOFIANEG, COVID 19 [facility] #### [facility] [address] [place], [place] [id number] [facility] COVID-19 [facility] SARS-CoV-2 (COVID-19) RNA EMMY+probe Ql (Unsp spec) Negative Normal Negative [facility] Comment on above: Order Comment: Healt hcare Worker?: Y Result Comment: Testing for SARS-CoV-2 by RT-PCR This test was developed and its performance characteristics determined by [employer]) and validated at the [facility]. This test has not been FDA [...] is terminated or revoked sooner. PERFORMED BY: [place] [address] PATHOLOGIST INSPECTOR REPAIRER TO [place]ISON M.D. Performed By: #### C OVID-19 TAMERA, SOFIANEG, COVID 19 [facility] #### [facility] [address] [place], [place] [id number] [facility] CT abdomen pelvis wo conon 1 [facility] abdomen pelvis wo con [facility] [place] [address] [place] [address] CT Scan Report Signed Patient: Andry Pierre MR#: [id number] 28 : 1960 Acct:[id number] Age/Sex: 60 / M ADM Date: 07/21/21 Loc: Room: [address] [place] [address] Type: ADM INOo Attending Dr: Feliciano Hernandez [...] Ricks Jr., M.D.07/21/2021 9:15 AM Dictation Location: [place] [address] Transcribed By: [facility] 07/21/21914 Dictated By: Duke Ricks Jr, MD 07/21/2104 Signed By: 07/21/21914 Normal [facility] Coagulation Profileon 2020 aPTT Coag (Bld) [Time] 37.9 s High 25.1-36.5 [facility] Comment on above: Result Comment: PERF ORMED BY: [address] [place] [address] PATHOLOGIST INSPECTOR REPAIRER TO [place]ADISON M.D. Performed By: #### P P #### [facility] [address] [place] [address] INR Coag (PPP) [Relative time] 2.0 {INR} Normal [facility] Comment on above: Result Comment: INR [...] 4.5 Performed By: #### P P #### [address] PT Coag (PPP) [Time] 22.5 s High 9.0-12.9 [facility] Comment on above: Performed By: #### P P #### [address] Complete Blood Count Auto Di ffon 07-21-2021 Basophils (Bld) [#/Vol] 0.1 10*3/uL Normal 0.0-0.2 [facility] Comment on above: Result Comment: PERF ORMED BY: [place] [address] PATHOLOGIST INSPECTOR REPAIRER TO [place]ISON M.D. Performed By: #### H EPATIC, CBC, LIPASE, BMP #### [address] Basophils/100 WBC (Bld) 0.6 % Normal . [facility] Comment on above: Performed By: #### H EPATIC, CBC, LIPASE, BMP #### [place] [address] [place] Eosinophils (Bld) [#/Vol] 0.4 10*3/uL Normal 0.0-0.45 [facility] Comment on above: Performed By: #### H EPATIC, CBC, LIPASE, BMP #### [place] [address] [place] Eosinophils/100 WBC (Bld) 4.3 % Normal . [facility] Comment on above: Performed By: #### H EPATIC, CBC, LIPASE, BMP #### [address] Erythrocyte distribution width (RBC) [Ratio] 13.7 % Normal 12.0-14.8 [facility] Comment on above: Performed By: #### H EPATIC, CBC, LIPASE, BMP #### [address] Hematocrit (Bld) [Volume fraction] 45.9 % Normal 38.8-50.0 [facility] Comment on above: Performed By: #### H EPATIC, CBC, LIPASE, BMP #### [address] Hemoglobin (Bld) [Mass/Vol] 15.4 g/dL Normal 13.0-17.0 [facility] Comment on above: Performed By: #### H EPATIC, CBC, LIPASE, BMP #### [address] Lymphocytes (Bld) [#/Vol] 2.9 10*3/uL Normal 1.00-4.8 [facility] Comment on above: Performed By: #### H EPATIC, CBC, LIPASE, BMP #### [address] Lymphocytes/100 WBC (Bld) 28.4 % Normal . [facility] Comment on above: Performed By: #### H EPATIC, CBC, LIPASE, BMP #### [address] MCH (RBC) [Entitic mass] 32.0 pg Normal 27.5-35.2 [facility] Comment on above: Performed By: #### H EPATIC, CBC, LIPASE, BMP #### [address] MCV (RBC) [Entitic vol] 95.2 fL Normal 83.5-101 [facility] Comment on above: Performed By: #### H EPATIC, CBC, LIPASE, BMP #### [address] [place] [address] [place] Mean Corpuscular HGB Conc 33.6 g/dL Normal 32.5-35.6 [facility] Comment on above: Performed By: #### H EPATIC, CBC, LIPASE, BMP #### [facility] [address] Monocytes (Bld) [#/Vol] 0.7 10*3/uL Normal 0.0-0.8 [facility] Comment on above: Performed By: #### H EPATIC, CBC, LIPASE, BMP #### [address] Monocytes/100 WBC (Bld) 6.7 % Normal . [facility] Comment on above: Performed By: #### H EPATIC, CBC, LIPASE, BMP #### [address] Neutrophils (Bld) [#/Vol] 6.0 10*3/uL Normal 1.8-7.7 [facility] Comment on above: Performed By: #### H EPATIC, CBC, LIPASE, BMP #### [address] Neutrophils/100 WBC (Bld) 60.0 % Normal . [facility] Comment on above: Performed By: #### H EPATIC, CBC, LIPASE, BMP #### [place] [address] [place] Nucleated RBC/100 WBC (Bld) [Ratio] 0.1 % Normal 0-0.5 [facility] Comment on above: Performed By: #### H EPATIC, CBC, LIPASE, BMP #### [facility] [address] [place] [address] [place] Platelet mean volume (Bld) [Entitic vol] 8.7 fL Normal 6.6-10.1 [facility] Comment on above: Performed By: #### H EPATIC, CBC, LIPASE, BMP #### [place] [address] [place] Platelets (Bld) [#/Vol] 215 10*3/uL Normal 150-450 [facility] Comment on above: Performed By: #### H EPATIC, CBC, LIPASE, BMP #### [facility] [address] [place] [address] RBC (Bld) [#/Vol] 4.83 10*6/uL Normal 3.90-5.60 [facility] Comment on above: Performed By: #### H EPATIC, CBC, LIPASE, BMP #### [address] WBC (Bld) [#/Vol] 10.0 10*3/uL Normal 4.5-11.0 [facility] Comment on above: Performed By: #### H EPATIC, CBC, LIPASE, BMP #### [address] Glucose Poct Glucometerson 1 Commemt1 Glu2: Cleaned Meter Normal [facility] Comment on above: Result Comment: PERF ORMED BY: [place] [address] PATHOLOGIST INSPECTOR REPAIRER TO [place] M.D. Performed By: #### H EPATIC, CBC, LIPASE, BMP #### [address] Glucose [Mass/Vol] 267 mg/dL Normal [facility] Comment on above: Result Comment: [facility] Glucose Reference Range is dependent on time and content of last meal. Glucose of more than 200 mg/dL in a nonstressed, ambulatory subject supports the diagnosis of Diabetes Mellitus. Performed By: #### H EPATIC, CBC, LIPASE, BMP #### [address] Commemt1 Glu2: Cleaned Meter [facility] Comment on above: Result Comment: PERF ORMED BY: [place] [address] PATHOLOGIST INSPECTOR REPAIRER TO [place] M.D. Performed By: #### H EPATIC, CBC, LIPASE, BMP #### [address] [place] [address] [place] Glucose [Mass/Vol] 252 mg/dL Normal [facility] Comment on above: Result Comment: [place] om Glucose Reference Range is dependent on time and content of last meal. Glucose of more than 200 mg/dL in a nonstressed, ambulatory subject supports the diagnosis of Diabetes Mellitus. Performed By: #### H EPATIC, CBC, LIPASE, BMP #### [address] Commemt1 Glu2: Cleaned Meter Normal [facility] Comment on above: Result Comment: PERF ORMED BY: [place] [address] PATHOLOGIST INSPECTOR REPAIRER TO [place] M.D. Performed By: #### H EPATIC, CBC, LIPASE, BMP #### [address] Glucose [Mass/Vol] 100 mg/dL Normal [facility] Comment on above: Result Comment: [place] om Glucose Reference Range is dependent on time and content of last meal. Glucose of more than 200 mg/dL in a nonstressed, ambulatory subject supports the diagnosis of Diabetes Mellitus. Performed By: #### H EPATIC, CBC, LIPASE, BMP #### [address] Glucose [Mass/Vol] 140 mg/dL Normal [facility] Comment on above: Result Comment: [place] om Glucose Reference Range is dependent on time and content of last meal. Glucose of more than 200 mg/dL in a nonstressed, ambulatory subject supports the diagnosis of Diabetes Mellitus. PERFORMED BY: [place] [address] PATHOLOGIST INSPECTOR REPAIRER TO [place] M.D. Performed By: #### H EPATIC, CBC, LIPASE, BMP #### [address] Hepatic Panelon 07-21-2021 Albumin [Mass/Vol] 3.5 g/dL Normal 3.2-5.5 [facility] Comment on above: Performed By: #### H EPATIC, CBC, LIPASE, BMP #### [facility] [address] Albumin/Globulin [Mass ratio] 1.1 {ratio} Normal [facility] Comment on above: Performed By: #### H EPATIC, CBC, LIPASE, BMP #### [facility] [address] ALP [Catalytic activity/Vol] 115 U/L High 32-92 [facility] Comment on above: Performed By: #### H EPATIC, CBC, LIPASE, BMP #### [facility] [address] [place] [address] ALT [Catalytic activity/Vol] 30 U/L Normal 10- [facility] Comment on above: Performed By: #### H EPATIC, CBC, LIPASE, BMP #### [facility] [address] [place] [address] AST [Catalytic activity/Vol] 19 U/L Normal 10- [facility] Comment on above: Performed By: #### H EPATIC, CBC, LIPASE, BMP #### [facility] [address] [place] [address] Bilirubin [Mass/Vol] 0.7 mg/dL Normal 0.3-1.2 [facility] Comment on above: Performed By: #### H EPATIC, CBC, LIPASE, BMP #### [facility] [address] [place] [address] Bilirubin,Indirect Not performed Normal [facility] Comment on above: Performed By: #### H EPATIC, CBC, LIPASE, BMP #### [facility] [address] [place] [address] Bilirubin.indirect [Mass/Vol] mg/dL Normal 0.0-0.4 [facility] Comment on above: Performed By: #### H EPATIC, CBC, LIPASE, BMP #### [facility] [address] [place] [address] Globulin (S) [Mass/Vol] 3.2 g/dL Normal [facility] Comment on above: Performed By: #### H EPATIC, CBC, LIPASE, BMP #### [facility] [address] Protein [Mass/Vol] 6.7 g/dL Normal 6.1-7.9 [facility] Comment on above: Performed By: #### H EPATIC, CBC, LIPASE, BMP #### [address] Lactic Acidon 07-21-2021 Lactate [Moles/Vol] 1.2 mmol/L Normal 0.5-2.2 [facility] Comment on above: Result Comment: PERF ORMED BY: [place] [address] PATHOLOGIST INSPECTOR REPAIRER TO [place] M.D. Performed By: #### L ACTIC #### [address] Lipaseon 07-21-2021 Lipase [Catalytic activity/Vol] 43.0 U/L Normal 22-51 [facility] Comment on above: Result Comment: PERF ORMED BY: [place] [address] PATHOLOGIST INSPECTOR REPAIRER TO [place] M.D. Performed By: #### H EPATIC, CBC, LIPASE, BMP #### [address] Tamera Ag Negativeon 07-21-20 21 Tamera Ag Negative Negative Normal Negative [facility] Comment on above: Result Comment: This is a duplicate [place] SARS Antigen (GIOVANNA) result to be used for statistical tracking purpose only. PERFORMED BY: [place] [address] PATHOLOGIST INSPECTOR REPAIRER TO [place] M.D. Performed By: #### C OVID-19 TAMERA, SOFIANEG, COVID 19 [facility] #### [facility] [address] [place], [place] [id number] [facility] Urinalysison 07-21-2021 Appearance (U) Clear Normal Clear [facility] Comment on above: Order Comment: Name Collection Type:: Clean-Voided Midstream Performed By: #### U A #### [facility] [address] [place] [address] [place] Bilirubin,Urine Negative Normal Negative [facility] Comment on above: Order Comment: Name Collection Type:: Clean-Voided Midstream Performed By: #### U A #### [facility] [address] [place] [address] [place] Color (U) Yellow Normal Yellow [facility] Comment on above: Order Comment: Name Collection Type:: Clean-Voided Midstream Performed By: #### U A #### [place] [address] [place] Glucose Ql (U) >=1000 High Normal [facility] Comment on above: Order Comment: Name Collection Type:: Clean-Voided Midstream Performed By: #### U A #### [address] Ketones Ql (U) Negative Normal Negative [facility] Comment on above: Order Comment: Name Collection Type:: Clean-Voided Midstream Performed By: #### U A #### [address] Leukocyte esterase Test strip Ql (U) Negative Normal Negative [facility] Comment on above: Order Comment: Name Collection Type:: Clean-Voided Midstream Performed By: #### U A #### [place] [address] [place] Nitrite,Urine Negative Normal Negative [facility] Comment on above: Order Comment: Name Collection Type:: Clean-Voided Midstream Performed By: #### U A #### [facility] [address] [place] [address] [place] Occult Blood,Urine Negative Normal Negative [facility] Comment on above: Order Comment: Name Collection Type:: Clean-Voided Midstream Result Comment: PERF ORMED BY: [place] [address] PATHOLOGIST INSPECTOR REPAIRER TO [place] M.D. Performed By: #### U A #### [place] [address] [place] pH (U) 6.5 [pH] Normal 5.0-9.0 [facility] Comment on above: Order Comment: Name Collection Type:: Clean-Voided Midstream Performed By: #### U A #### [address] Protein,Urine Negative Normal Negative [facility] Comment on above: Order Comment: Name Collection Type:: Clean-Voided Midstream Performed By: #### U A #### [address] Specificy [place],Urine 1.026 Normal 1.001-1.030 [facility] Comment on above: Order Comment: Name Collection Type:: Clean-Voided Midstream Performed By: #### U A #### [address] Urobilinogen,Urine Normal Normal Normal [facility] Comment on above: Order Comment: Name Collection Type:: Clean-Voided Midstream Performed By: #### U A #### [address] General Surgery Office/Clini c Noteon 05-31-2021 [...] hematuria Head injury Heart disease 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 Normal [facility] Comment on above: Result Comment: Elec tronically Signed By: NOE GEORGE, Andry Daniel\Date and Time Signed: 05/31/21 11:26 EDT Ambulatory Clinical Summaryo n 05-29-2021 Ambulatory Clinical Summary {[id number] [id number]}CD: [id number] [facility] Outside Colonoscopyon 2020 Outside Colonoscopy [id number]#1.00CD:127 [facility] Pathology Noteon 05-25-2021 Pathology Note [id number]#1.00CD:127 Normal [facility] Provider Letter [facility] May 23, 2021 Say Mccormick, [address] [place] [address] Re: ANDRY PIERRE Date of : 1960 Thank you for your referral of Andry Pierre who was seen on consultation on May 18, 2021, for Right upper quadrant pain and rectal bleeding, nausea, vomiting, and constipation. I have enclosed my consultation notes for your review. I will be happy to follow Andry should his symptoms persist. Sincerely, Andry Adames MD General Surgery [facility] Consent for Procedure/Surger yon 05-21-2021 Consent for Procedure/Surgery [id number]#1.00CD:127 [facility] Immunization Recordson 05-21 Immunization Records [id number]#1.00CD:127 [facility] Ambulatory Clinical Summaryo n 05-18-2021 Ambulatory Clinical Summary {[id number]}CD: [id number] [facility] General Surgery Office/Clini c Noteon 05-18-2021 General Surgery Office/Clinic Note HPI Staff Est patient , RUQ pain x 8 wks , u/s done 05/03/21 @ [facility]. recent rectal bleeding currently having nausea [...] in remote past and was hospitalized in [place] with a torn muscle; only abdominal operation RIHR x 3; recent CT scan of abdomen wnl; GB US with possible small stones adherent to fundus of gallbladder, no wall thickening or ductal dilation; normal HIDA scan; all studies personally reviewed; no h/o jaundice or pancreatitis; poor po intake, with mild recent wt loss; patient reports that he had a colonoscopy at [facility] within the last 5 years, but [...] hematuria Head injury Heart disease History of fpc anticoagulant use History of stroke Hyperlipidemia Hypertension Liver cancer Nausea and vomiting Neck pain Nocturia Parkinsons Retention of urine seizures Seizures Urge incontinence Urinary retention Urinary urgency Historical Arthritis Procedure/Surgical History Implantation of electronic stimulator in 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 [facility] Comment on above: Result Comment: Elec tronically Signed By: NOE GEORGE, Andry Das\.br\Date and Time Signed: 05/18/21 15:[address] ED[address] - CT Reporton 05-17-2021 [address] - [address] Report [id number]#1.00CD:127 [facility] RAD - MISCon 05-17-2021 RAD - MISC [id number]#1.00CD:127 [facility] RAD - MISC [id number]#1.00CD:127 [facility] RAD - Ultrasound Reporton RAD - Ultrasound Report [id number]#1.00CD:127 [facility] RAD - Ultrasound Reporton RAD - Ultrasound Report [id number]#1.00CD:127 [facility] Physician Referralon 021 Physician Referral [id number]#1.00CD:127 [facility] Provider Letter [facility]23 Provider Letter [facility] March 23, 2021 Say Mccormick, [facility] [place] [address] Re: ANDRY PIERRE Date of : 1960 Thank you for your referral of Andry Pierre who was seen on consultation of excision of lump on the neck on March 14, 2021. I have enclosed my consultation notes for your review. I will be happy to follow Andry should his symptoms persist. Sincerely, Andry Adames MD General Surgery [facility] Ambulatory Clinical Summaryo n 03-14-2021 Ambulatory Clinical Summary {[id number]-[id number]-zr-so-[id number]-tp-62-44-8d}CD: [id number] [facility] Patient Educationon 03-14-20 21 Patient Education [...] care provider or diet and nutritional services host (dietitian). This may include: ? Eating fewer [...] calories than (more content not included)... Normal [facility] Physician Referralon Physician Referral [id number]#1.00CD:127 Normal [facility] Patient Correspondenceon Patient Correspondence [id number]#1.00CD:127 [facility] Reminderson 01-10-2021 Reminders - From: Rosa Cuellar To: EU - Anand Barfield; Cc: Rosa Cuellar; Sent: 08/17/2020 11:45:05 EST [...] LR Letter mailed regular/certified letter today. Normal [facility] Provider Letteron 01-09-2021 Provider Letter (Inserted Image. Pina ble to display) January 09, 2021 ANDRY PIERRE [address] [place] [address] ANDRY PIERRE 1960 SENT VIA CERTIFIED AND REGULAR MAIL Dear Mr. Pierre, This letter is to inform you the providers of [facility] will no longer be responsible for your routine medical care due to your noncompliance. Emergency care only will be provided for the thirty (30) days following this letter. During this time period we suggest that you find another physician for your medical needs. A listing of area physicians can be found on [facility] website at [email or web address] or you may contact your health plan. We will be glad to forward your records to your new physician as long as we receive a signed release of records form. Sincerely, Larry Barfield M.D., Bernadine.Sona.CShiraS. [facility] [address] [place] [address] [facility] Patient Correspondenceon Patient Correspondence [id number]#1.00CD:127 [facility] Provider Letter Office-[facility] 11-24-2020 Provider Letter [facility] November 24, 2020 ANDRY PIERRE [address] [place] [address] ANDRY PIERRE 1960 SENT VIA CERTIFIED AND REGULAR MAIL Dear Mr. Jewellpavel, I am corresponding with you by certified [...] Larry Barfield M.D., F.A.C.S. [facility] [address], [place] [address] [facility] Reminderson 08-02-2020 Reminders - From: Radha King MA To: EU - Clinical; Sent: 07/19/2020 14:09:34 EDT Show up: 08/02/2020 14:09:00 EDT Subject: fish/cytol Reminder/Recall fish/cytol done 07/19/2020 done, sent msg to prw to review results Normal [facility] Outside Cardiovascularon Outside Cardiovascular [id number]#1.00CD:127 Normal [facility] Outside Radiologyon 08-01-20 20 Outside Radiology [id number]#1.00CD:127 Normal [facility] Outside Radiology [id number]#1.00CD:127 Normal [facility] Progress Note-Physicianon Progress Note-Physician [id number]#1.00CD:127 Normal [facility] Urology Office/Clinic Noteon 07-25-2020 Urology Office/Clinic Note Chief Complaint New Pt. HPI Staff New Pt. [place] [facility] on 07/10/2020 due to leaking around catheter. US of kidneys done 11/17/2019. CT SCAN done 07/04/2020. Pt. states after having a Ct scan Pt. was not able to urinate and had catheter placed. Pt. does not have a history of urine retention. 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 Pt. states by a Doctor in [place] told Pt. had prostates cancer. Pt. states no biopsy was done, just a blood test. PSA was 1.39 done 07/07/20. Cath was removed at [facility] this morning. Dysuria: denies pain or burning Incomplete bladder emptying: yes pt had cath for 2 weeks placed by [facility], cath was removed this morning at [facility] Hematuria: pt states he had visible [...] since last encounter. Reviewed CT scan and [facility] ER notes Review of Systems PHQ [...] Retention of urine, unspecified) Patient reported to [facility] ER for leaking around catheter on [...] contributing t (more content not included)... Normal [facility] Comment on above: Result Comment: Elec tronically Signed By: Yon GEORGE, Lefty Jamil\.br\Date and Time Signed: 07/25/20 12:11 EDT Urology Office/Clinic Note Chief Complaint [facility] 07/10/2020 HPI Staff [facility] on 07/10/2020 due to leaking around catheter. US of kidneys done 11/17/2019. Pt. states after having a Ct scan Pt. was not able to urinate and had catheter placed. Pt. does not have a history of urine retention. 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 Pt. states by a Doctor in [place] told Pt. had prostates cancer. Pt. states [...] abdominal pain. 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 There have been no associated [...] of urine (R33.9: Retention of urine, unspecified) RADIOCOMMUNICATIONS TECHNICIAN is here for urinary retention that started [...] prostate cancer 3yrs. ago by a in [place]. Pt. states that there was never a [...] urine fo (more content not included)... Normal [facility] Comment on above: Result Comment: Elec tronically Signed By: Yon GEORGE, Lefty Jamil\.br\Date and Time Signed: 07/25/20 11:44 EDT Lab Reportson 07-24-2020 Lab Reports [id number]#1.00CD:127 Normal [facility] UroVysion Fish and Urine Cyt o (P4 Labs)on 07-24-2020 UVFISH & UC Diagnosis Info Invalid Interpretation Code [facility] Comment on above: Result Comment: A:Ur ine,Urine:Voided [...] on: 07/24/2020 10:42:51 Performed By: #### 1 [id number] ####[facility] [id number] [place] [address] - [address] Reporton 07-21-[address] - [address] Report [id number]#1.00CD:127 [facility] ED Note-Physicianon 07-20-20 ED Note-Physician [id number]#1.00CD:127 [facility] Formson 07-20-2020 Forms [id number]#1.00CD:127 [facility] Ambulatory Clinical Summaryo n 07-19-2020 Ambulatory Clinical Summary {[id number]-[id number]-[id number]}CD: [id number] [facility] Ambulatory Clinical Summary {[id number]}CD: [id number] [facility] Auth for Release of Medical Recordson 07-19-2020 Auth for Release of Medical Records [id number]#1.00CD:127 [facility] Patient Educationon 07-19-20 Patient Education Family [...] Document Reviewed: 12/14/2012 ExitCare? Patient Information ?2013 [employer]. [facility] Patient Education Family Medicine Acute Urinary [...] your urine. Then you and your personal care assistant can decide at your earliest convenience how [...] to a urinary tract infection. Only take xnpw-cmt-knuyhvp or prescription medicines for pain, discomfort, or fever as directed by your caregiver. SEEK IMMEDIATE MEDICAL CARE IF: You develop chills, fever, or show signs of generalized illness that occurs prior to seeing your caregiver. Document Released: 12/29/2001 Document Revised: 12/14/2012 Document Reviewed: 09/13/2009 ExitCare? Patient Information ?2013 [employer]. Flash [facility] Provider Letter FTon 07-19 Provider Letter [facility] Say Mccormick [address] [place] [id number] Re: ANDRY PIERRE Date of : 1960 [...] based on PSA alone per pt in [facility]. Equally confusing is the fact that this [...] a remote history of prostate cancer in [facility] by a outside urologist without a biopsy. [...] to determine his PSA's were done in [facility]. I began suspecting the patient was not [...] impression of (more content not included)... Normal [facility] RAD - CT Reporton 07-19-[address] - [address] Report [id number]#1.00CD:127 Normal [facility] UroVysion Fish and Urine Cyt o ( Labs)on 07-19-2020 [facility] Method of Extraction Voided Normal [facility] Comment on above: Performed By: #### 1 [id number] ####[facility] [address] [place] [address] [facility] Number of Jars 1 Invalid Interpretation Code [facility] Comment on above: Performed By: #### 1 [id number] ####[facility] [id number] [place] [address] [facility] Specimen Urine Normal [facility] Comment on above: Performed By: #### 1 [id number] ####[facility] [id number] [place] [address] [facility] Type of Service Technical Only Normal [facility] Comment on above: Performed By: #### 1 [id number] ####[facility] [address] [place] [address] Vital Signs Date Time Vital Sign Value Performing Clinician Facility 12-08-2023 19:17-0500 Respiratory rate 18 /min Abdirahman Hunt MD [facility] 12-08-2023 16:50-0500 Body temperature 97.9 [degF] Abdirahman Hunt MD [facility] 12-08-2023 16:50-0500 Diastolic blood pressure 88 mm[Hg] Abdirahman Hunt MD [facility] [employer] [facility] 12-08-2023 16:50-0500 Heart rate 90 /min Abdirahman Hunt MD [facility] [employer] [facility] 12-08-2023 16:50-0500 SaO2% (BldA) [Mass fraction] 98 % [facility] 12-08-2023 16:50-0500 Systolic blood pressure 149 mm[Hg] [facility] 12-05-2023 15:04-0500 Body height 180.3 cm Abdirahman Hunt MD [facility] [employer] [facility] 11-30-2023 00:18-0500 Body temperature 37.0 Abdirahman Hunt MD [facility] 11-29-2023 20:00-0500 Body mass index (BMI) [Ratio] 40.96 kg/m2 Abdirahman Hunt MD [facility] [employer] [facility] 11-29-2023 20:00-0500 Body weight 133.2 kg Abdirahman Hunt MD [facility] [employer] [facility] 11-06-2023 09:57-0500 Body height 175.3 cm Obed Florian MD Work Phone: [facility] 11-06-2023 09:57-0500 Body weight 123.38 kg Obed Florian MD Work Phone: [facility] 11-06-2023 09:57-0500 Diastolic blood pressure 89 mm[Hg] Obed Florian MD Work Phone: [facility] 11-06-2023 09:57-0500 Heart rate 81 /min Obed Florian MD Work Phone: [facility] 11-06-2023 09:57-0500 SaO2% (BldA) [Mass fraction] 95 % Obed Florian MD Work Phone: [facility] 11-06-2023 09:57-0500 Systolic blood pressure 127 mm[Hg] Obed Florian MD Work Phone: [facility] 01-21-2022 07:23-0400 Body height 182.9 cm Pacc 3 Work Phone: [facility] 01-21-2022 07:23-0400 Body temperature 97.2 [degF] Pacc 3 Work Phone: [facility] 01-21-2022 07:23-0400 Body weight 140.21 kg Pacc 3 Work Phone: [facility] 01-21-2022 07:23-0400 Diastolic blood pressure 84 mm[Hg] Pacc 3 Work Phone: [facility] 01-21-2022 07:23-0400 Heart rate 57 /min Pacc 3 Work Phone: [facility] 01-21-2022 07:23-0400 SaO2% (BldA) [Mass fraction] 99 % Pacc 3 Work Phone: [facility] 01-21-2022 07:23-0400 Systolic blood pressure 134 mm[Hg] Pacc 3 Work Phone: [facility] 11-13-2021 12:20-0500 Body height 182.88 cm Sanjay Larosepavel Other [employer] Other 11-13-2021 12:20-0500 Body mass index (BMI) [Ratio] 42.04 kg/m2 Sanjay [employer] Other [employer] Other 11-13-2021 12:20-0500 Body temperature 96.2 [degF] Sanjay [employer] Other [employer] Other 11-13-2021 12:20-0500 Body weight 140.62 kg Sanjay Laroses Other [employer] Other 11-13-2021 12:20-0500 Diastolic blood pressure 60 mm[Hg] Sanjay [employer] Other [employer] Other 11-13-2021 12:20-0500 Respiratory rate 20 /min Sanjay Dooley Other [employer] Other 11-13-2021 12:20-0500 SaO2% (BldA) [Mass fraction] 96 % Sanjay Dooley Other [employer] Other 11-13-2021 12:20-0500 Systolic blood pressure 92 mm[Hg] Sanjay Dooley Other [employer] Other Encounters Encounter Date Encounter Type Care Provider Facility Start: 03-26-2024 End: 03-26-2024 ambulatory [facility] Start: 03-24-2024 End: 03-24-2024 ambulatory YANCY CERVANTES Not Available Start: 03-23-2024 ambulatory [facility] Start: 03-22-2024 End: 03-22-2024 Emergency department patient visit [facility] Start: 03-09-2024 End: 03-09-2024 ambulatory YANCY CERVANTES Not Available Start: 03-04-2024 ambulatory TIFFANIE LEIGH [facility] Start: 02-25-2024 End: 02-25-2024 ambulatory ARJUN BARONE Not Available Start: 01-29-2024 End: 01-29-2024 ambulatory [facility] Start: 01-27-2024 ambulatory [facility] Start: 01-22-2024 End: 01-22-2024 ambulatory YANCY CERVANTES Not Available Start: 01-21-2024 End: 01-21-2024 ambulatory YANCY CERVANTES Not Available Start: 01-13-2024 ambulatory [facility] Start: 01-06-2024 End: 01-06-2024 ambulatory YANCY M BILLY Not Available Start: 11-29-2023 End: 12-08-2023 Evaluation and management of inpatient CHARLEE ARCE [facility] Start: 11-29-2023 End: 12-08-2023 Evaluation and management of inpatient Stasromel Reji Hunt MD [facility] Start: 11-28-2023 End: 11-29-2023 Emergency department patient visit [facility] Start: 11-28-2023 End: 12-01-2023 ambulatory [facility] Start: 11-25-2023 End: [facility]23 [facility] Start: 11-19-2023 End: 11-19-2023 Subsequent hospital visit by physician [facility] Non-Invasive Cardiology Comment on above: Canceled (Patient co ndition) Start: 11-06-2023 End: 11-07-2023 ambulatory [facility] Facility:[place] Start: 11-06-2023 End: 11-06-2023 ambulatory [facility] Facility:[place] Start: 11-06-2023 End: 11-06-2023 Patient encounter procedure Obed Florian MD Work Phone: Neurology Comment on above: Diabetic polyneuropa thy associated with type 2 diabetes mellitus (HCC) [E11.42] (Primary Dx); Weakness; Obesity, Class III, BMI 40-49.9 (morbid obesity) (HCC) Start: 10-21-2023 End: 10-22-2023 ambulatory [facility] Start: 10-10-2023 ambulatory [facility] Start: 10-08-2023 End: 10-14-2023 Emergency department patient visit [facility] Start: 09-19-2023 End: 09-20-2023 ambulatory [facility] Facility:[place] Start: 09-12-2023 Telephone encounter Shaen bowling PA-C Work Phone: [facility] Comment on above: DBS problem Start: 08-19-2023 End: 08-19-2023 ambulatory [facility] Start: 08-11-2023 End: 08-12-2023 ambulatory Ramon Mendiola MD Facility:[facility] Start: 07-17-2023 End: 07-17-2023 [facility] Start: 07-07-2023 Telephone encounter Wesley Rose MD Work Phone: [facility] Start: 05-21-2023 End: 05-21-2023 ambulatory [facility] Start: 02-20-2023 End: 02-21-2023 ambulatory [facility] Facility:[facility] Start: 02-03-2023 End: 03-05-2023 ambulatory SHAIKH Brenda DEWEY Facility:[facility] Start: 01-07-2023 End: 01-08-[address] SAY MCCORMICK . Facility:[facility] Start: 01-06-2023 End: 01-31-2023 ambulatory CARMICHAEL Brenda ROLDANWVERONICA Facility:[facility] Start: 12-04-2022 End: 01-03-2023 ambulatory SHAIKH Brenda ROLDANWVERONICA Facility:[facility] Start: 11-06-2022 End: 12-04-2022 ambulatory SHAIKH Brenda DEWEY Facility:[facility] Start: 10-07-2022 End: 11-06-2022 ambulatory SHAIKH Brenda DEWEY Facility:[facility] Start: 09-05-2022 End: 10-06-2022 ambulatory SHAIKH Brenda EDWEY Facility:[facility] Start: 08-06-2022 End: 09-04-[address] SAY MCCORMICK . Facility:[facility] Start: 07-10-2022 Encounter for preprocedural laboratory examination DIOGENES RODRIGUEZ [facility] Start: 07-08-2022 End: 07-09-2022 ambulatory DIOGENES RODRIGUEZ [...] HIDALGO Facility:[facility] Start: 05-06-2022 End: 06-05-2022 ambulatory SHAIKH Brenda DEWEY Facility:[facility] Start: 04-05-2022 End: 05-03-2022 ambulatory SHAIKH Brenda DEWEY Facility:[facility] Start: 01-23-2022 Telephone encounter Wesley Rose MD Work Phone: [facility] Comment on above: Results Start: 01-21-2022 End: 01-21-2022 ambulatory [facility] [address] [facility] Work Phone: Pre Anesthesia Comment on above: Pre-op evaluation (P rimary Dx); Essential tremor; Type 2 diabetes mellitus with other specified complication, with long-term current use of insulin ([facility]); Obesity, Class III, BMI >= 40; Essential hypertension; Difficult intravenous access; Acute, but ill-defined, cerebrovascular disease; Obstructive sleep apnea syndrome; Chronic obstructive pulmonary disease, unspecified COPD type ([facility]); Tobacco use; Tracheal stenosis; Gastroesophageal reflux disease, unspecified whether esophagitis present; Pulmonary embolus with infarction ([facility]); Congestive heart failure, unspecified HF chronicity, unspecified heart failure type ([facility]); Stage 3 chronic kidney disease, unspecified whether stage 3a or 3b CKD ([facility]) 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) (Primary Dx) Start: 01-21-2022 End: 01-21-2022 Nursing evaluation of patient and report Kerwin Brito RN Work Phone: [facility] Comment on above: Essential tremor (Pr imary Dx) Start: 01-21-2022 End: 01-21-2022 Patient encounter procedure Wesley Rose MD Work Phone: [facility] Comment on above: Essential tremor (Pr imary Dx) Start: 01-21-2022 End: 01-21-2022 Admission to establishment Pacc Main 3 Work Phone: [facility] Start: 01-21-2022 End: 01-21-2022 Preprocedural examination done Pac Main 3 Work Phone: Pre Anesthesia Start: 01-04-2022 Telephone encounter Harris chowdhury MD Work Phone: [facility] Comment on above: DBS MARIA G message Start: 11-26-2021 End: 11-26-2021 ambulatory Aziz Bakhous Other [employer] Other Start: 11-26-2021 Telephone encounter Aziz Bakhous [facility] Start: 11-13-2021 End: 11-13-2021 ambulatory Aziz Bakhous Other [employer] Other Start: 11-13-2021 Office outpatient ne w 45 minutes Aziz Bakhous [facility] Start: 11-13-2021 Telephone encounter Aziz Bakhous [facility] Start: 07-21-2021 End: 07-27-2021 ambulatory JESUS BAUDILIO Facility:[facility] Procedures Date Procedure Procedure Detail [...] examinati on foot 2 views Rosalia Mobley [employer] - [employer]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 Work Phone: Start: 12-05-2023 Glucose blood reagen t strip Lori Leblanc MD Work Phone: Start: 12-05-2023 Glucose blood reagen t strip Lori Leblanc MD Work Phone: Start: 12-05-2023 Glucose blood reagen t strip Lori Lelbanc MD Work Phone: Start: 12-05-2023 Glucose blood [...] 12-03-2023 Glucose blood reagen t strip Lori Leblacn MD Work Phone: Start: 12-03-2023 Glucose blood [...] Phone: Start: 12-02-2023 EEG S[place] i [employer]INE [employer]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 PALLIDUM AB Radha Lao MD Work Phone: Start: 11-30-2023 BASIC METABOLIC PANE L W/ REFLEX TO MG FOR LOW K Sue GARZA Work Phone: Start: 11-30-2023 C-reactive protein Danelle Nur MD Work Phone: Start: 11-30-2023 Calcium ionized Jamal Nur MD Work Phone: Start: 11-30-2023 MYOGLOBIN, BLOOD Joann Nru MD Work Phone: Start: 11-30-2023 VITAMIN B12 & FOLATE Ve fidel uNr MD Work Phone: Start: 11-30-2023 Blood gases any combination ph pco2 po2 co2 hco3 Jamia Nur MD Work Phone: Start: 11-29-2023 End: 11-29-2023 Glucose blood reagent strip Abdirahman Hunt MD Start: 02-20-[address] CARITO MCCORMICK . Comment on above: Performed By: #### A 1C #### [facility] [address] [place] [address] Dr. Miah Buck Start: 07-26-2021 Resection of [...] Cancer Screening Discussion Prostate Cancer Screening Discussion [facility] Start: 02-21-2028 Prostate specific antigen measurement Prostate Cancer Screening Discussion [facility] Start: 2025 Pneumococcal 0-64 years Vaccine (3 - PPSV23 or PCV20) Pneumococcal 0-64 years Vaccine (3 - PPSV23 or PCV20) [facility] Start: 2025 Pneumococcal vaccination [facility] Start: 02-24-2025 Screening for malignant neoplasm of colon [facility] Start: 12-02-2024 GFR test (Diabetes, CKD 3-4, OR last GFR 15-59) GFR test (Diabetes, CKD 3-4, OR last GFR 15-59) [facility] Start: 11-25-2024 Hemoglobin A1c measurement A1C test (Diabetic or Prediabetic) [facility] Start: 01-15-2024 End: 01-15-2024 Patient encounter procedure 01/15/2024 11:40 AM EDT Office Visit [facility] Neurology Specialist [id number] [place] [id number] Yudith Martinez PA [address], [address] [place] [address] and ophthalmology referral memory [facility] Specialist Comment on above: 6W labs CT and ophth almology referral memory Start: 12-16-2023 End: 12-16-2023 Patient encounter procedure 12/16/2023 2:00 PM EDT Procedure visit [facility] [address] [place], [place] [id number] Evelyn Claire MD [address] [place] [id number] emg: ble (has heart monitor implanted- not pacemaker) [facility] Comment on above: emg: ble (has heart monitor implanted- not pacemaker) Start: 11-28-2023 End: 11-28-2023 Patient encounter procedure 11/28/2023 1:00 PM EST Appointment [facility] Non-Invasive Cardiology [address] [place] [address] MEDIA - R/S W/ PT GWEN 11/19/23 BB [facility]vasive [facility]iology Comment on above: MEDIA - R/S W/ PT WI FE GWEN 11/19/23 BB Start: 11-25-2023 End: 11-25-2023 Patient encounter procedure 11/25/2023 11:40 AM EST Office Visit [facility] [address] [place] [address] Yudith Martinez PA [address], [address] [place], [place] [id number] 4W swallow study double [facility] Comment on above: 4W swallow study cesario ble vision Start: 11-04-2023 End: 11-04-2024 Tilt table Tilt table CV Cardiac Diagnostics Routine Syncope and collapse Expected: 11/04/2023, Expires: 11/04/2024 [facility] [employer] [employer] Work Phone: Comment on above: Expected: 11/04/2023 , Expires: 11/04/2024 Start: 10-27-2023 Complete blood count Hemoglobin/Juan tocrit [facility] Start: 10-27-2023 Creatinine measurement Serum Creatin ine [facility] Start: 10-27-2023 Serum Creatinine Serum Creatinine Cl [facility] Start: 10-06-2023 Annual Wellness Visi t (Medicare Advantage) Annual Wellness Visit (Medicare Advantage) [facility] Start: 06-06-2023 Covid-19 Vaccine (2022- season) Covid-19 Vaccine ( season) [facility] Start: 06-06-2023 Influenza vaccination Influenza Vacc ine (#1) [facility] Start: 05-06-2023 Influenza vaccination Flu vaccine (# 1) [facility] Start: 01-21-2023 HEMOGLOBIN/HEMATOCRIT HEMOGLOBIN/HEM ATOCRIT [facility] Start: 01-21-2023 SERUM CREATININE SERUM CREATININE Cl [facility] Start: 11-28-2022 SERUM CREATININE SERUM CREATININE [facility] Start: 06-06-2022 Influenza vaccination INFLUENZ A (Season Ended) [facility] Start: 04-22-2022 Hemoglobin A1c measurement HbA1C [facility] Start: 04-22-2022 Hemoglobin A1c/Hemoglobin.total in Blood HBA1C [facility] Start: 01-20-2022 End: 03-22-2022 Hemoglobin A1c/Hemoglobin.total in Blood HGB A1C Lab Routine Type 2 diabetes mellitus with other specified complication, with long-term current use of insulin (HCC) Pre-op evaluation Expected: 01/20/2022, Expires: 03/22/2022 [facility] Work Phone: Comment on above: Expected: 01/20/2022 , Expires: 03/22/2022 Start: 02-03-2021 COVID-19 VACCINE (2 - Booster for Mary Ellen series) COVID-19 VACCINE (2 - Booster for Mary Ellen series) [facility] Start: 2020 Hepatitis B Vaccine (1 of 3 - Risk 3-dose series) Hepatitis B Vaccine (1 of 3 - Risk 3-dose series) [facility] Start: 2020 Respiratory Syncytia l Virus (RSV) or age 60 yrs+ (1 - 1-dose 60+ series) Respiratory Syncytial Virus (RSV) or age 60 yrs+ (1 - 1-dose 60+ series) [facility] Start: 2020 RSV Vaccine (1 - 1-dose 60+ series) RSV Vaccine (1 - 1-dose 60+ series) [facility] Start: 08-19-2020 Diabetic foot examination Diabetic foot exam [facility] Start: 12-12-2018 Hemoglobin A1c/Hemoglobin.total in Blood HBA1C [facility] Start: 08-29-2016 Urine screening for protein Diabetic Alb to Cr ratio (uACR) test [facility] Start: 08-09-2016 GFR test (Diabetes, CKD 3-4, OR last GFR 15-59) GFR test (Diabetes, CKD 3-4, OR last GFR 15-59) [facility] Start: 07-18-2016 Lipid panel Lipids [facility] Start: 05-05-2016 Hemoglobin A1c measurement A1C test (Diabetic or Prediabetic) [facility] Start: 2015 PROSTATE CANCER SCREENING DISCUSSION PROSTATE CANCER SCREENING DISCUSSION [facility] Start: 07-27-2015 Glaucoma screening Diabetic retinal exam [facility] Start: 2010 Shingles vaccine (1 of 2) Shingles vaccine (1 of 2) [facility] Start: 2010 SHINGRIX VACCINE (1 of 2) SHINGRIX VACCINE (1 of 2) [facility] Start: 2005 COLOGUARD (FIT-DNA) COLOGUARD (FIT-D NA) [facility] Start: 2005 Colonoscopy COLONOSCOPY [facility] Start: 2005 COLORECTAL CANCER SCREENING COLORECTAL CANCER SCREENING [facility] Start: [address] COLONOGRAPHY [facility] Start: 2005 FECAL OCCULT BLOOD FECAL OCCULT BLOO D [facility] Start: 2005 Screening for malignant neoplasm of colon [facility] Start: 2005 SIGMOIDOSCOPY SIGMOIDOSCOPY [facility] Start: 10-07-2000 Urine microalbumin profile DTaP,Tdap,Td Vaccine (1 - Tdap) [facility] Start: 1990 Zoledronic acid therapy Alpha-1 Antitrypsin Deficiency Screening [facility] Start: 1979 DTaP/Tdap/Td vaccine (1 - Tdap) DTaP/Tdap/Td vaccine (1 - Tdap) [employer] Start: 1979 Urine microalbumin profile [facility] Start: 1978 ANNUAL PCP TEAM CHRONIC DISEASE VISIT ANNUAL PCP TEAM CHRONIC DISEASE VISIT [facility] Start: 1978 BP CONTROLLED (<130/80) BP CONTROLLED (<130/80) [facility] Start: 1978 Hepatitis B surface antibody level LDL CHOLESTEROL [facility] Start: 1978 HEPATITIS C SCREENING [facility] Start: 1978 Hepatitis C screening Hepatitis C [facility] Start: 1978 HIV SCREENING HIV SCREENING [facility] Start: 1978 HIV screening HIV Screening [facility] Start: 1975 HIV screening HIV screen [employer] Start: 1972 [facility] Start: 1970 3 comp foot exam completed DIABETIC FOOT EXAM [facility] Start: 1970 Diabetic foot examination Diabetic Foot Exam [facility] Start: 1970 Glaucoma screening Dilated Retinal E xam [facility] Start: 1970 Hepatitis B screening URINE ALBUMIN:CREATININE RATIO [facility] Start: 1970 Hepatitis C antibody , confirmatory test DILATED RETINAL EXAM [facility] Adult NIV/Positive Airway Pressure Adult NIV/Positive Airway Pressure Respiratory Care Routine Every 4hr until discontinued starting 11/30/2023 [employer] Comment on above: Every 4hr until disc ontinued starting 11/30/2023 Continuous pulse oximetry Pulse oximetry, continuous Respiratory Care Routine Every 4hr until discontinued starting 12/03/2023 [employer] Comment on above: Every 4hr until disc ontinued starting 12/03/2023 Glucose [Mass/volume ] in Serum or Plasma [employer] Comment on above: 4X Daily (AC & HS) u ntil discontinued starting 11/30/2023 As Needed until disc ontinued starting 11/30/2023 Hemoglobin A1c/Hemoglobin.total in Blood HGB A1C Lab Routine Type 2 diabetes mellitus with other specified complication, with long-term current use of insulin (HCC) Pre-op evaluation 01/21/2022 9:30 AM EDT [facility] Work Phone: End: 12-23-2023 Hemoglobin and Hematocrit Hemoglobin and Hematocrit Lab Routine Every Other Day for 10 Occurrences starting 12/05/2023 until 12/23/2023, 2 completed [employer] Comment on above: Every Other Day for 10 Occurrences starting 12/05/2023 until 12/23/2023, 2 completed Oxygen therapy [Minimum Data Set] Initiate Oxygen Therapy Protocol Respiratory Care Routine As Needed until discontinued starting 11/29/2023 [employer] Comment on above: As Needed until disc ontinued starting 11/29/2023 End: 12-23-2023 Platelets [#/volume] in Blood Platelet Count Lab Routine Every Other Day for 10 Occurrences starting 12/05/2023 until 12/23/2023, 2 completed [employer] Comment on above: Every Other Day for 10 Occurrences starting 12/05/2023 until 12/23/2023, 2 completed End: 12-14-2023 Protime-INR Protime-INR Lab Routine Daily for 7 Days starting 12/08/2023 until 12/14/2023, 1 completed [employer] Comment on above: Daily for 7 Days sta rting 12/08/2023 until 12/14/2023, 1 completed End: 11-30-2023 [employer] clinical swallow evaluation [employer] clinical swallow evaluation [employer] Routine One Time for 1 Occurrences starting 11/30/2023 until 11/30/2023 [employer] Work Phone: Comment on above: One Time for 1 Occur rences starting 11/30/2023 until 11/30/2023 End: 11-30-2023 SPECIMEN REJECTION [facility] Comment on above: Once for 1 Occurrenc es starting 11/30/2023 until 11/30/2023 End: 11-30-2023 Speech and language therapy regime [employer] eval and treat [employer] Routine One Time for 1 Occurrences starting 11/30/2023 until 11/30/2023 [facility] Comment on above: One Time for 1 Occur rences starting 11/30/2023 until 11/30/2023 STAPH AUREUS PCR STAPH [facility] PC R Lab Routine 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) Ordered: 01/21/2022 [facility] Work Phone: Comment on above: Or[facility]: [facility] Immunization Date Immunization Notes Care Provider [facility] 07-19-2021 influenza virus vacc ine, unspecified formulation Wesley Rose MD Work Phone: [facility] 07-07-2020 Influenza, injectabl e, Madin [place] Canine Kidney, preservative free, quadrivalent Harris Faustin MD Work Phone: [facility] 08-01-2019 influenza virus vacc ine, unspecified formulation Harris Faustin MD Work Phone: [facility] 08-10-2018 influenza, injectabl e, quadrivalent, preservative free Harris Faustin MD Work Phone: [facility] 07-24-2018 Influenza, injectabl e, Madin [place] Canine Kidney, preservative free, quadrivalent Harris Faustin MD Work Phone: [facility] 09-10-2017 influenza virus vacc ine, unspecified formulation Harris Faustin MD Work Phone: [facility] 08-11-2017 pneumococcal polysaccharide vaccine, 23 valent Harris Faustin MD Work Phone: [facility] 08-05-2016 influenza virus vacc ine, unspecified formulation Harris Faustin MD Work Phone: [facility] 11-13-2015 pneumococcal conjuga te vaccine, 13 valent Harris Faustin MD Work Phone: [facility] 07-18-2015 influenza virus vacc ine, unspecified formulation Mth 1 [facility] 07-18-2015 influenza virus vacc ine, whole virus Harris Faustin MD Work Phone: [facility] 07-06-2015 influenza, high dose seasonal, preservative-free Harris Faustin MD Work Phone: [facility] 09-13-2014 influenza, injectabl e, quadrivalent, preservative free Harris Faustin MD Work Phone: [facility] 06-25-2013 influenza, seasonal, injectable, preservative free Harris Faustin MD Work Phone: [facility] 06-17-2012 influenza, seasonal, injectable Harris Faustin MD Work Phone: [facility] 09-11-2010 pneumococcal polysaccharide vaccine, 23 valent Harris Faustin MD Work Phone: [facility] Payers Date Payer Category Payer Medicare [id number] 2022 Medicaid 2021 Medicare [id number] 2021 Medicare [id number] 2021 Unknown [id number] 2019 Unknown [employer] [facility] S AND BLUE SHIELD [employer]THEM [employer] O [id number] 2019-Present [phone] [address] [place] [address] O [id number] 2018 Unknown [id number] 1960 Unknown [id number] 2.16.840.1.634120.3.579.2.6 47 1960 Unknown [id number] 2.16.840.1.459431.3.579.2.5 93 1960 Unknown [id number] 2.16.840.1.842443.3.579.2.5 93 1960 Unknown [id number] 2.16.840.1.509392.3.579.2.5 93 1960 Unknown [id number] 2.16.840.1.568818.3.579.2.5 93 1960 Unknown [id number] 2.16.840.1.531479.3.579.2.5 93 1960 Unknown [id number] 2.16.840.1.756157.3.579.2.5 93 1960 Unknown [id number] 2.16.840.1.295822.3.579.2.5 93 1960 Unknown [id number] 2.16.840.1.470443.3.579.2.5 93 1960 Unknown [id number] 2.16.840.1.452416.3.579.2.5 93 1960 Unknown [id number] 2.16.840.1.869624.3.579.2.5 93 1960 Unknown [id number] 2.16.840.1.036884.3.579.2.5 93 1960 Unknown [id number] 2.16.840.1.374090.3.579.2.5 93 1960 Unknown [id number] 2.16.840.1.373998.3.579.2.5 93 1960 Unknown [id number] 2.16.840.1.476744.3.579.2.5 93 1960 Unknown [id number] 2.16.840.1.969925.3.579.2.5 93 1960 Unknown [id number] 2.16.840.1.902636.3.579.2.5 93 1960 Unknown [id number] 2.16.840.1.949706.3.579.2.5 93 1960 Unknown [id number] 2.16.840.1.495925.3.579.2.5 93 1960 Unknown [id number] 2.16.840.1.938334.3.579.2.5 93 1960 Unknown [id number] 2.16.840.1.937586.3.579.2.1 96 1960 Unknown [id number] 2.16.840.1.359465.3.579.2.1 286 1960 Unknown [id number] 2.16.840.1.421454.3.579.2.1 286 1960 Unknown [id number] 2.16.840.1.612878.3.579.2.1 286 1960 Unknown [id number] 2.16.840.1.239353.3.579.2.1 286 1960 Unknown [id number] 2.16.840.1.451796.3.579.2.1 286 1960 Unknown [id number] 2.16.840.1.119936.3.579.2.1 286 1960 Unknown [id number] 2.16.840.1.320726.3.579.2.1 77 1960 Unknown [id number] 2.16.840.1.917565.3.579.2.1 73 1960 Unknown [id number] 2.16.840.1.523865.3.579.2.1 73 1960 Unknown [id number] 2.16.840.1.508281.3.579.2.1 75 1960 Unknown [id number] 2.16.840.1.180539.3.579.2.1 286 1960 Unknown [id number] 2.16.840.1.169985.3.579.2.1 259 1960 Unknown [id number] 2.16.840.1.464788.3.579.2.1 259 1960 Unknown [id number] 2.16.840.1.117108.3.579.2.1 259 1960 Unknown [id number] 2.16.840.1.200255.3.579.2.1 259 1960 Unknown [id number] 2.16.840.1.016283.3.579.2.1 259 1960 Unknown [id number] 2.16.840.1.840045.3.579.2.1 259 1959 Private Health Insurance [id number] Unknown [id number] 2.16.840.1.581255.19 Social History Date Type Detail Facility Start: 05-31-2013 End: 10-27-2023 Tobacco smoking status NHIS Never smoked tobacco [facility] Work Phone: Start: 05-31-2013 End: 10-27-2023 Tobacco use and exposure Former smokeless tobacco user [facility] Work Phone: End: 09-17-2015 History of tobacco use Chews Tobacco [facility] Work Phone: Start: 06-15-2021 End: 11-06-2023 Alcohol intake Current non-drinker of alcohol (finding) [facility] Start: 01-04-2020 History SDOH Alcohol Frequency 1 [facility] Start: 01-04-2020 Tobacco Comment 30 years [facility] Start: 1960 Sex Assigned At Male [facility] Start: 05-31-2013 End: 09-19-2023 Tobacco use and exposure User of smokeless tobacco [facility] Work Phone: Start: 01-11-2022 End: 01-21-2022 Exposure to SARS-CoV-2 (event) Not sure [facility] Start: 01-04-2020 End: 11-29-2023 Sex Assigned At [facility] History of tobacco use Cigarette Smoker [facility] Work Phone: Start: 01-04-2020 End: 11-29-2023 History of Social function [facility] How often to you hav e a drink containing alcohol? Never [facility] Average Number of Drinks Not on file [facility] Start: 08-16-2019 Gender identity Identifies as male gender (finding) [facility] Start: 08-16-2019 Sexual orientation Heterosexual (demetrius no) [facility] Start: 10-28-2023 End: 12-03-2023 Alcohol intake Lifetime non-drinker (finding) [employer] Has the electric, i[employer], oil, or water [employer] threatened to shut off services in your home in past 12Mo No [employer] (I/We) worried wheth er (my/our) food would run out before (I/we) got money to buy more. Never true [employer] NEGATED: Highlighted rowStart: HERNÁN History of tobacco use Passive smoker [employer] Medical Equipment Procedure Code Equipment Code Equipment Origin al Text Equipment Identifier Dates Ipg Activa Sc Db s Dual Extn - [id number] Start: 06-30-2013 Comment on above: Description: ACTIVA SC Multi-program Leonor rostimulator for deep Brain Stimulation Neurostimulator Activa Sc 0-10.5v 2-250hz 0-25.5ma 2.4inx2.2in .4in - [id number] Start: 07-24-2016 Neurostimulator Activa Sc 0-10.5v 2-250hz 0-25.5ma 2.4inx2.2in .4in - [id number] Start: 06-30-2019 Neurostimulator Activa Sc 0-10.5v 2-250hz 0-25.5ma 2.4inx2.2in .4in - [id number] Start: 01-30-2022 [id number] Start: 06-29-2014 Comment on above: Use as directed sq bid Clinical Notes 03-22-2021 to 03-26-2024 Janneth Nelson, NABEEL - 12/08/2023 6:28 PM Janneth Dennison RN - 12/08/2023 6:01 PM Lori Fernandes MD - 12/08/2023 3:35 PM Pete Lamb PTA - 12/08/2023 2:02 PM [facility] Note Date & Type Note Facility 03-26-2024 Note [facility] Note Reason for cardiology consult: Patient here for 2 mo follow up diastolic heart failure, B/L LE edema, and syncope. Chief Complaint: No cardiac complaints HPI: Andry Pierre is a 63 y.o. 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 He has severe essential tremor s/p deep brain stimulator. Also prior history of strokes. History of falls, tilt table test did not show any hemodynamic changes, it was thought to be due to severe neuropathy, he also has a loop recorder implanted. Also he has dementia. He has history of sleep apnea and morbid obesity however he states that he lost about 300 pounds and he was told no need for CPAP anymore. He was seen in January in our office for symptoms suggestive of diastolic heart failure exacerbation. His medications were adjusted. He is today here for follow-up visit. He states that he has been doing well. He denies any shortness of breath within the limited physical activities he does. He states that he has occasional brief sharp chest pains not related to exertion. He also reports occasional very brief palpitations without any other symptoms. He denies orthopnea or paroxysmal nocturnal dyspnea or dizziness. He does not walk much secondary to severe legs weakness however when he tries to walk he still falls. He denies any legs edema. Review of systems All systems were reviewed and they were negative except for the above positive findings noted in the history in addition to a lot of back pain. Past Medical History He has a past medical history of Chronic kidney disease, Diabetes mellitus (CMS/HCC), Dyslipidemia, Hypertension, and Obstructive sleep apnea. Surgical History He has a past surgical history that includes Cholecystectomy. Social History He reports that he has never smoked. He has never used smokeless tobacco. He reports that he does not currently use alcohol. He reports that he does not use drugs. Family History Family History Problem Relation Name Age of Onset Coronary artery disease Mother Coronary artery disease Father Allergies Beta-blockers (beta-adrenergic blocking agts), Diazepam, Gabapentin, and Hydralazine Medications Current Outpatient Medications: allopurinol (Zyloprim) 100 mg tablet, Take 100 mg by mouth 1 (one) time each day at the same time., Disp: , Rfl: aspirin 81 mg EC tablet, Take 1 tablet by mouth in the morning., Disp: , Rfl: atorvastatin (Lipitor) 40 mg tablet, Take 40 mg by mouth in the morning., Disp: , Rfl: baclofen (Lioresal) 10 mg tablet, TAKE 1/2-1 TABLET BY MOUTH THREE TIMES DAILY, Disp: , Rfl: candesartan (Atacand) 8 mg tablet, Take 1 tablet (8 mg) by mouth in the morning., Disp: 30 tablet, Rfl: 11 cetirizine (ZyrTEC) 10 mg tablet, Take 10 mg by mouth in the morning and at bedtime., Disp: , Rfl: cholecalciferol, vitamin D3, 50 mcg (2,000 unit) capsule, Take 2,000 Units by mouth in the morning., Disp: , Rfl: cloNIDine (Catapres) 0.1 mg tablet, Take 0.1 mcg by mouth in the morning and at bedtime., Disp: , Rfl: colchicine, gout, 0.6 mg tablet, Take 1 tablet by mouth in the morning., Disp: , Rfl: dexAMETHasone (Decadron) 2 mg tablet, TAKE 1 TABLET BY MOUTH TWICE A DAY WITH FOOD FOR 10 DAYS, Disp: , Rfl: escitalopram (Lexapro) 20 mg tablet, Take 0.5 tablets by mouth in the morning., Disp: , Rfl: furosemide (Lasix) 40 mg tablet, Take 40 mg by mouth in the morning and at bedtime., Disp: , Rfl: HYDROcodone-acetaminophen (Dayton) 5-325 mg tablet, , Disp: , Rfl: indomethacin (Indocin) 50 mg capsule, TAKE 1 CAPSULE BY MOUTH THREE TIMES A DAY NEEDED FOR PAIN WITH FOOD OR MILK, Disp: , Rfl: insulin degludec (Tresiba FlexTouch) 100 unit/mL (3 mL) injection, every 12 (twelve) hours., Disp: , Rfl: Jardiance 10 mg, Take 25 mg by mouth 1 (one) time each day., Disp: , Rfl: linaCLOtide (Linzess) 72 mcg capsule, Take 72 mcg by mouth if needed each day., Disp: , Rfl: metFORMIN (Glucophage) 500 mg tablet, Take 500 mg by mouth with breakfast and with evening meal., Disp: , Rfl: metoprolol tartrate (Lopressor) 50 mg tablet, TAKE 1 TABLET BY MOUTH TWICE A DAY WITH FOOD FOR 30 DAYS, Disp: , Rfl: montelukast (Singulair) 10 mg tablet, Take 1 tablet by mouth in the morning., Disp: , Rfl: NIFEdipine XL (Procardia XL) 90 mg 24 hr tablet, Take 1 tablet (90 mg) by mouth in the morning., Disp: 90 tablet, Rfl: 3 oxybutynin XL (Ditropan-XL) 10 mg 24 hr tablet, Take 10 mg by mouth in the morning., Disp: , Rfl: pantoprazole (ProtoNix) 40 mg EC tablet, Take 40 mg by (more content not included)... [facility] 01-29-2024 Note [place] [facility] - [facility] Reason for Consultation: Syncope, s/p loop [...] unresponsive during this. He was sent to [facility] for neuro eval. He continues to [...] 10/21/23 Telephone apt today for follow up [facility] for chest pain. He was seen [...] reveals no events. Had recent ECHO at [place] which was normal. LOOP: 08/19/23: Here for [...] on file Intimate Partner Violence: Unknown (11/27/2023) [place] Safety & Environment Fear of Current or Ex-Partner: Not on file Emotionally Abused: Not on file Physically Abu (more content not included)... [facility] 01-29-2024 Note Patient here for 2 w [place] follow up diastolic heart failure, hx of [...] systems reviewed and are negative. [facility] 01-13-2024 Note [place] [facility] - [facility] Reason for Consultation: Syncope, s/p loop [...] unresponsive during this. He was sent to [facility] for neuro eval. He continues to [...] 10/21/23 Telephone apt today for follow up [facility] for chest pain. He was seen [...] reveals no events. Had recent ECHO at [place] which was normal. LOOP: 08/19/23: Here for follow up Continues to LE horace d/t chronic back pain Loop data review [...] on file Intimate Partner Violence: Unknown (11/27/2023) [place] Safety & Environment Fear of Current or Ex-Partner: Not on file Emotionally Abused: Not on file Physically Abused: Not on file Sexually Abused: Not on file Physically or Sexually Abused: Not on file Depression: Not on file Housing Stability: Not on file Utilities: Not on file Meds: Current (more content not included)... [facility] 12-08-2023 History of Present illness Narrative Called report to Bee at [facility] at [phone]. Answered all questions and advised that the patient will be leaving here around 8:00 PM tonight. Attempted to call report to [facility] at [phone]. Was on hold for over 10 minutes. Images from the original note were not included. [facility] Office: [phone] Alberto Rice DO, Luciano Murphy DO, Humza [...] CNP, Sugey Barillas CNP, Mary Jo Bonner VEH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, Kathy Granados, VEH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, Sigrid Velásquez, VEH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, Janine Turpin, KATHRINC, Sue Willams, KATHRINC, Savi Iqbal, VEH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, Beckie Mello, VEH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, Nora Mace, VEH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, Jyoti Rojo, CLOTH COLORS EXAMINER, Ronda Sellers, VEH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, Janell Hoyt, VEH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, Caryl Gonzalez, VEH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 [facility] IN-PATIENT SERVICE [facility] Progress Note 12/08/2023 3:35 PM Name: Andry Pierre Acct: [id number] Room: [address] [place] [address] Day: 9 Admit Date: 11/29/2023 8:06 PM [...] brain stimulator 10/2008 who initially presented to [facility] 11/24 s/p fall in bathroom with acute left hip/upper thigh and back pain (hit head, no LOC) presents with No chief complaint on file. and is admitted to the hospital for the management of AMS (altered mental status). Patient transferred from [place] after undergoing tilt table evaluation for concern for orthostasis on 11/28/2022 with history of recurrent episodes of dizziness with history of stroke, complicated history. tilt table test complicated by worsening acute symptoms of dizziness with chest pain with altered sensorium. Although tilt test unremarkable for orthostasis, patient was evaluated in ED with acute symptoms and recommended admission pending transfer to [facility] for neurology evaluation. Unfortunately with bed availability [...] with occasional shortness of breath While in [place] ED patient did develop symptomatic hypoglycemia with blood sugars in the 50s with symptoms of feeling funny . 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 Subsequently returned status post fall 11/24 with [...] of Arthritis, Asthma, CHF (congestive heart failure) ([facility]), CKD (chronic kidney disease) stage 2, GFR 60-89 ml/min, Clotting disorder ([facility]), Congenital heart disease, COPD (chronic obstructive pulmonary disease) ([facility]), Depression, Emphysema of lung ([facility]), GERD (gastroesophageal reflux disease), GERD (gastroesophageal reflux disease), Gout, Headache(784.0), Hernia, Hernia, History of blood clots, History of DVT (deep vein thrombosis), Hyperlipidemia, Insomnia, Irritable bowel syndrome, Kidney stones, Lumbar degenerative disc disease, Lumbar radiculopathy, Obesity, PAM (obstructive sleep apnea), Parkinson disease, Parkinson's disease, Post traumatic stress disorder, Renal disease, Rheumatoid arthritis ([facility]), Stroke ([facility]), Stroke risk, Tracheostomy in place ([facility]), Tremors of nervous system, Type II or [...] Labs 12/07/23 0750 12/07/23 1203 12/07/23 1800 12/07/23 2012 12/08/23 0821 12/08/23 1250 POCGLU 132* 145* 154* 193* 137* 167* ABG: Lab Results Component Value Date/Time PH 7.413 08/22/2011 03:20 PM PCO2 41.5 08/22/2011 03:20 PM PO2ART 92.5 08/22/2011 03:20 PM [id number] 26.0 08/22/2011 03:20 PM NBEA NOT REPORTED 08/22/2011 03:20 PM PBEA 1.8 08/22/2011 03:20 PM [id number] 95.6 08/22/2011 03:20 PM FIO2 INFORMATION NOT PROVIDED 11/30/2023 12:05 AM Lab Results Component Value Date/Time SPECIAL NOT REPORTED 10/20/2012 10:15 AM SPECIAL NOT REPORTED 10/20/2012 10:15 AM Lab Results Component Value Date/Time CULTURE NO GROWTH 10/20/2012 10:15 AM CULTURE 10/20/2012 10:15 AM Performed at [facility] [address] [address] Radiology: XR CHEST (2 VW) Result Date: [...] Chronic kidney disease (CKD), stage III (moderate) ([facility]) 11/30/2023 Yes Generalized weakness 12/02/2023 Yes CHF (congestive heart failure) ([facility]) 11/30/2023 Yes Uncontrolled hypertension 11/30/2023 Yes Dysphagia [...] Chronic kidney disease (CKD), stage III (moderate) ([facility]) Generalized weakness CHF (congestive heart failure) ([facility]) Uncontrolled hypertension Dysphagia GERD (gastroesophageal reflux disease) [...] 2 units and then adjust accordingly Recurrent LRIa-WJQe-yzufdx neurology plan History of prothrombin gene mutation with prior DVT-continue Coumadin CKD stage III-continue to monitor creatinine and will need follow-up with nephrology/PCP PAM on CPAP Hx of dvt: on coumadin. Pharmacy managing Discharge planning after the above workup Lori Leblanc MD 12/08/2023 3:35 PM Physical Therapy Facility/Department: [address] [facility] Physical Therapy Treatment Note Name: Andry Pierre : 1960 Date of Service: 12/08/2023 Discharge Recommendations: Patient would benefit from continued therapy after discharge PT Equipment Recommendations Equipment Needed: No Other: Pt owns walker, cane and walker Patient Diagnosis(es): There were no encounter diagnoses. Past Medical History: has a past medical history of Arthritis, Asthma, CHF (congestive heart failure) ([facility]), CKD (chronic kidney disease) stage 2, GFR 60-89 ml/min, Clotting disorder ([facility]), Congenital heart disease, COPD (chronic obstructive pulmonary disease) ([facility]), Depression, Emphysema of lung ([facility]), GERD (gastroesophageal reflux disease), GERD (gastroesophageal reflux [...] previous session. Family / Caregiver Present: Yes (moises) Follows Commands: Within Functional Limits General Comment [...] abduction/adduction, heel/toe raises, and marches Reps 20 AM-[facility] - Mobility AM-[facility] Basic Mobility - Inpatient How [...] 3-5 steps with a railing?: A Lot AM-[facility] Inpatient Mobility Raw Score : 15 AM-[facility] Inpatient T-Scale Score : 39.45 [...] other days (per medication management clinic in [place], last visit 11/11; clinic noted recent dose [...] other days (per medication management clinic in [place], last visit 11/11; clinic noted recent dose [...] from the original note were not included. [facility] Office: [phone] Alberto Rice DO, Luciano Murphy DO, Humza [...] Quinones DNP, Kacey Meeks CNP, Sugey Barillas VEH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, Mary Jo Bonner, VEH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, Kathy Granados, VEH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, Sigrid Velásquez, VEH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, Janine Turpin, KATHRINC, KATHRIN MercedesC, Savi Iqbal, VEH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, Beckie Mello, VEH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, Nora Mace, VEH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, Jyoti Rojo, CLOTH COLORS EXAMINER, Ronda Sellers, VEH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, Janell Hoyt, VEH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, Caryl Gonzalez, VEH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 [facility] IN-PATIENT SERVICE [facility] Progress Note 12/07/2023 9:05 AM Name: Andry Pierre Acct: [id number] Room: [facility]01[facility]- IP Day: 8 Admit Date: 11/29/2023 8:06 [...] brain stimulator 10/2008 who initially presented to [facility] 11/24 s/p fall in bathroom with acute left hip/upper thigh and back pain (hit head, no LOC) presents with No chief complaint on file. and is admitted to the hospital for the management of AMS (altered mental status). Patient transferred from [place] after undergoing tilt table evaluation for concern for orthostasis on 11/28/2022 with history of recurrent episodes of dizziness with history of stroke, complicated history. tilt table test complicated by worsening acute symptoms of dizziness with chest pain with altered sensorium. Although tilt test unremarkable for orthostasis, patient was evaluated in ED with acute symptoms and recommended admission pending transfer to [facility] for neurology evaluation. Unfortunately with bed availability [...] with occasional shortness of breath While in [place] ED patient did develop symptomatic hypoglycemia with blood sugars in the 50s with symptoms of feeling funny . 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 Subsequently returned status post fall 11/24 with [...] of Arthritis, Asthma, CHF (congestive heart failure) ([facility]), CKD (chronic kidney disease) stage 2, GFR 60-89 ml/min, Clotting disorder ([facility]), Congenital heart disease, COPD (chronic obstructive pulmonary disease) ([facility]), Depression, Emphysema of lung ([facility]), GERD (gastroesophageal reflux disease), GERD (gastroesophageal reflux disease), Gout, Headache(784.0), Hernia, Hernia, History of blood clots, History of DVT (deep vein thrombosis), Hyperlipidemia, Insomnia, Irritable bowel syndrome, Kidney stones, Lumbar degenerative disc disease, Lumbar radiculopathy, Obesity, PAM (obstructive sleep apnea), Parkinson disease, Parkinson's disease, Post traumatic stress disorder, Renal disease, Rheumatoid arthritis ([facility]), Stroke ([facility]), Stroke risk, Tracheostomy in place ([facility]), Tremors of nervous system, Type II or [...] 03:20 PM PO2ART 92.5 08/22/2011 03:20 PM OIU9DIZ 26.0 08/22/2011 03:20 PM NBEA NOT REPORTED 08/22/2011 03:20 PM PBEA 1.8 08/22/2011 03:20 PM [id number] 95.6 08/22/2011 03:20 PM FIO2 INFORMATION NOT PROVIDED 11/30/2023 12:05 AM Lab Results Component Value Date/Time SPECIAL NOT REPORTED 10/20/2012 10:15 AM SPECIAL NOT REPORTED 10/20/2012 10:15 AM Lab Results Component Value Date/Time CULTURE NO GROWTH 10/20/2012 10:15 AM CULTURE 10/20/2012 10:15 AM Performed at [facility] [address] [place] [address] [id number] Radiology: XR CHEST (2 VW) Result Date: [...] Chronic kidney disease (CKD), stage III (moderate) ([facility]) 11/30/2023 Yes Generalized weakness 12/02/2023 Yes CHF (congestive heart failure) ([facility]) 11/30/2023 Yes Uncontrolled hypertension 11/30/2023 Yes Dysphagia [...] (HCC) Generalized weakness CHF (congestive heart failure) ([facility]) Uncontrolled hypertension Dysphagia GERD (gastroesophageal reflux disease) [...] 2 units and then adjust accordingly Recurrent VFMg-FYGr-jeiclc neurology plan History of prothrombin gene mutation with prior DVT-continue Coumadin CKD stage III-continue to monitor creatinine and will need follow-up with nephrology/PCP PAM on CPAP Hx of dvt: on coumadin. Pharmacy managing Discharge planning after the above workup Lori Leblanc MD 12/07/2023 9:05 AM Images from the original note were not included. [facility] Office: [phone] Alberto Rice DO, Luciano Murphy DO, Humza James DO, Jc Maria DO, Nancy Paz MD, Naz Cruz MD, Demetrio Patel MD, Hortensia Maynard MD, Filiberto Vizcaino MD, Polly Ramos MD, Julia Blanco MD, Bibi Kim DO, Yaneli Lugo MD, Chepe Pfeiffer MD, Andry Rice DO, Jamia Nur MD, Obi Alford DO, Jacquelyn oRper MD, Almita Moya MD, Jackie Rivas MD, Kylie Morales MD, Pasha Roy MD, Daniel Swenson MD, Marvin Sneed MD, Abdirahman Hunt MD, Da Moore MD, Geneva Casiano MD, Matthew Perez DO, Tk Connor DO, Jess Parker MD, Garett Valentine MD, Rosalia Mobley, VEH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, Criss Gray, VEH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, Lefty Matute, VEH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, Brittny Quinones, COLTON, Kacey Meeks, VEH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, Sugey Barillas, VEH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, Mary Jo Bonner, VEH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, Kathy Granados, VEH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, Sigrid Velásquez, VEH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, Janine Turpin, PA-C, Sue Willams, PA-C, Savi Iqbal, VEH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, Beckie Mello, VEH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, Nora Mace, VEH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, Jyoti Rojo, CLOTH COLORS EXAMINER, Ronda Sellers, VEH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, Janell Hoyt, VEH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, Caryl Gonzalez, VEH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 [facility] IN-PATIENT SERVICE [facility] Progress Note 12/06/2023 1:56 PM Name: Andry Pierre Acct: [id number] Room: [address] [place], [place] [id number]-[facility] Day: 7 Admit Date: 11/29/2023 8:06 PM [...] brain stimulator 10/2008 who initially presented to [facility] 11/24 s/p fall in bathroom with acute left hip/upper thigh and back pain (hit head, no LOC) presents with No chief complaint on file. and is admitted to the hospital for the management of AMS (altered mental status). Patient transferred from [place] after undergoing tilt table evaluation for concern for orthostasis on 11/28/2022 with history of recurrent episodes of dizziness with history of stroke, complicated history. tilt table test complicated by worsening acute symptoms of dizziness with chest pain with altered sensorium. Although tilt test unremarkable for orthostasis, patient was evaluated in ED with acute symptoms and recommended admission pending transfer to [facility] for neurology evaluation. Unfortunately with bed availability [...] with occasional shortness of breath While in [place] ED patient did develop symptomatic hypoglycemia with blood sugars in the 50s with symptoms of feeling funny . 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 Subsequently returned status post fall 11/24 with [...] of Arthritis, Asthma, CHF (congestive heart failure) ([facility]), CKD (chronic kidney disease) stage 2, GFR 60-89 ml/min, Clotting disorder ([facility]), Congenital heart disease, COPD (chronic obstructive pulmonary disease) ([facility]), Depression, Emphysema of lung ([facility]), GERD (gastroesophageal reflux disease), GERD (gastroesophageal reflux disease), Gout, Headache(784.0), Hernia, Hernia, History of blood clots, History of DVT (deep vein thrombosis), Hyperlipidemia, Insomnia, Irritable bowel syndrome, Kidney stones, Lumbar degenerative disc disease, Lumbar radiculopathy, Obesity, PAM (obstructive sleep apnea), Parkinson disease, Parkinson's disease, Post traumatic stress disorder, Renal disease, Rheumatoid arthritis ([facility]), Stroke ([facility]), Stroke risk, Tracheostomy in place ([facility]), Tremors of nervous system, Type II or [...] hours. Recent Labs 12/05/23 0756 12/05/23 1210 12/05/236 12/05/23202412/06/23 0742 12/06/23 1259 POCGLU 131* 189* 137* 160* 119* 176* ABG: Lab Results Component Value Date/Time PH 7.413 08/22/2011 03:20 PM PCO2 41.5 08/22/2011 03:20 PM PO2ART 92.5 08/22/2011 03:20 PM KYD3IWF 26.0 08/22/2011 03:20 PM NBEA NOT REPORTED 08/22/2011 03:20 PM PBEA 1.8 08/22/2011 03:20 PM [id number] 95.6 08/22/2011 03:20 PM FIO2 INFORMATION NOT PROVIDED 11/30/2023 12:05 AM Lab Results Component Value Date/Time SPECIAL NOT REPORTED 10/20/2012 10:15 AM SPECIAL NOT REPORTED 10/20/2012 10:15 AM Lab Results Component Value Date/Time CULTURE NO GROWTH 10/20/2012 10:15 AM CULTURE 10/20/2012 10:15 AM Performed at [facility] [address] [place], [place] [id number] Radiology: XR CHEST (2 VW) Result Date: [...] Chronic kidney disease (CKD), stage III (moderate) ([facility]) 11/30/2023 Yes Generalized weakness 12/02/2023 Yes CHF (congestive heart failure) ([facility]) 11/30/2023 Yes Uncontrolled hypertension 11/30/2023 Yes Dysphagia [...] 2 units and then adjust accordingly Recurrent PUVa-JGRp-xcwyhs neurology plan History of prothrombin gene mutation with prior DVT-continue Coumadin CKD stage III-continue to monitor creatinine and will need follow-up with nephrology/PCP PAM on CPAP Discharge planning after the above workup Lori Leblanc MD 12/06/2023 1:56 PM Pharmacy Note Warfarin Consult follow-up Warfarin dose prior to admission: 17.5 mg Sun, 15 mg all other days (per medication management clinic in [place], last visit 11/11; clinic noted recent dose [...] other days (per medication management clinic in [place], last visit 11/11; clinic noted recent dose [...] inpatient. Nolan Mccarty PharmD, 12/05/2023 2:41 PM MARKETING ASSISTANT [employer] ALL NOTES Speech Language Pathology [facility] Cognitive Treatment Note Date: 12/05/2023 Patient s Name: Andry Pierre Diagnosis: Patient Active Problem List Diagnosis Code COPD (chronic obstructive pulmonary disease) ([facility]) J44.9 PAM (obstructive sleep apnea) G47.33 Obesity, morbid ([facility]) E66.01 Lumbar degenerative disc disease M51.36 Lumbar radiculopathy M54.16 Lumbar facet arthropathy M47.816 Osteoarthritis of both knees M17.0 Diabetic neuropathy ([facility]) E11.40 Morbid obesity ([facility]) E66.01 Sleep apnea, obstructive G47.33 Encounter for medication monitoring Z51.81 Chronic kidney disease (CKD), stage III (moderate) ([facility]) N18.30 Hyperkalemia E87.5 Generalized weakness R53.1 Pill rolling tremor R25.1 Muscle cramps R25.2 Acute renal failure (ARF) ([facility]) N17.9 Type II or unspecified type diabetes mellitus without mention of complication, not stated as uncontrolled E11.9 Depression F32.A Irritable bowel syndrome K58.9 Obesity E66.9 CHF (congestive heart failure) ([facility]) I50.9 Parkinson disease G20.A1 Tremors of nervous system R25.[address] ([facility]) Z93.0 Bilateral lower extremity edema R60.0 CKD (chronic kidney disease) N18.9 Uncontrolled hypertension I10 Dysphagia R13.10 Hyperlipidemia E78.5 History of DVT (deep vein thrombosis) Z86.718 Congenital heart disease Q24.9 Emphysema of lung ([facility]) J43.9 Hernia K46.9 Stroke risk Z91.89 GERD (gastroesophageal reflux disease) K21.9 Asthma J45.909 Renal disease N28.9 Gout M10.9 S/P deep brain stimulator placement Z96.89 Parkinsons G20.A1 CKD (chronic kidney disease) stage 2, GFR 60-89 ml/min N18.2 Type II or unspecified type diabetes mellitus with renal manifestations, not stated as uncontrolled(250.40) E11.29 Encounter for chronic pain management G89.29 Weight loss, intentional [id number] 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 Completed by Tess Robert Solvent Process Extractor Operator Clinician Co-signed by Kathy Rivera M.A.CCC/MARKETING ASSISTANT [employer] Occupational Therapy Facility/Department: [address] [place] Occupational Therapy Daily Treatment Note Name: Andry Pierre : 1960 Date of Service: 12/05/2023 Discharge Recommendations: Patient would benefit from continued therapy after discharge OT Equipment Recommendations ADL Assistive Devices: Shower Chair with back Other: weighted utensils Patient Diagnosis(es): There were no encounter diagnoses. Past Medical History: has a past medical history of Arthritis, Asthma, CHF (congestive heart failure) ([facility]), CKD (chronic kidney disease) stage 2, GFR 60-89 ml/min, Clotting disorder ([facility]), Congenital heart disease, COPD (chronic obstructive pulmonary disease) ([facility]), Depression, Emphysema of lung ([facility]), GERD (gastroesophageal reflux disease), GERD (gastroesophageal reflux [...] No Diagnosis: AMS, COPD General Comment Comments: NABEEL ok'd pt for OT this date. Pt [...] weight in BUEs on RW to environmental permitting specialist upright posture.) Interventions: Safety awareness training (body [...] 57 Timed Code Treatment Minutes: 57 Minutes CARLOE Arriola Images from the original note were not included. [facility] Office: [phone] Alberto Rice DO, Luciano Murphy DO, Humza James DO, Jc Maria DO, Nancy Paz MD, Naz Cruz MD, Demetrio aPtel MD, Hortensia Maynard MD, Filiberto Vizcaino MD, Polly Ramos MD, Julia Blanco MD, Bibi Kim DO, Yaneli Lugo MD, Chepe Pfeiffer MD, Andry Rice DO, Jamia Nur MD, Obi Alford DO, Jacquelyn Roper MD, Almita Moya MD, Jackie Rivas MD, Kylie Morales MD, Pasha Roy MD, Daniel Swenson MD, Marvin Sneed MD, Abdirahman Hunt MD, Da Moore MD, Geneva Casiano MD, Matthew ePrez DO, Tk Connor DO, Jess Parker MD, Garett Valentine MD, Rosalia Mobley, VEH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, Criss Gray, VEH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, Lefty Matute, VEH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, Brittny Quinones, [facility], Kacey Meeks, VEH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, Sugey Barillas, VEH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, Mary Jo Bonner, VEH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, Kathy Granados, VEH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, Sigrid Velásquez, VEH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, Janine Turpin, PA-C, Sue Willams, PA-C, Savi Iqbal, VEH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, Beckie Mello, VEH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, Nora Mace, VEH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, Jyoti Rojo, [facility], Ronda Sellers, VEH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, Janell Hoyt, VEH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, Caryl Gonzalez, VEH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 [facility] IN-PATIENT SERVICE [facility] Progress Note 12/05/2023 8:58 AM Name: Andry Pierre Acct: [id number] Room: 0143/0143-01 IP Day: 6 Admit Date: 11/29/2023 8:06 PM [...] brain stimulator 10/2008 who initially presented to [facility] 11/24 s/p fall in bathroom with acute left hip/upper thigh and back pain (hit head, no LOC) presents with No chief complaint on file. and is admitted to the hospital for the management of AMS (altered mental status). Patient transferred from [place] after undergoing tilt table evaluation for concern for orthostasis on 11/28/2022 with history of recurrent episodes of dizziness with history of stroke, complicated history. tilt table test complicated by worsening acute symptoms of dizziness with chest pain with altered sensorium. Although tilt test unremarkable for orthostasis, patient was evaluated in ED with acute symptoms and recommended admission pending transfer to [facility] for neurology evaluation. Unfortunately with bed availability [...] with occasional shortness of breath While in [place] ED patient did develop symptomatic hypoglycemia with blood sugars in the 50s with symptoms of feeling funny . 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 Subsequently returned status post fall 11/24 with [...] of Arthritis, Asthma, CHF (congestive heart failure) ([facility]), CKD (chronic kidney disease) stage 2, GFR 60-89 ml/min, Clotting disorder ([facility]), Congenital heart disease, COPD (chronic obstructive pulmonary disease) ([facility]), Depression, Emphysema of lung ([facility]), GERD (gastroesophageal reflux disease), GERD (gastroesophageal reflux disease), Gout, Headache(784.0), Hernia, Hernia, History of blood clots, History of DVT (deep vein thrombosis), Hyperlipidemia, Insomnia, Irritable bowel syndrome, Kidney stones, Lumbar degenerative disc disease, Lumbar radiculopathy, Obesity, PAM (obstructive sleep apnea), Parkinson disease, Parkinson's disease, Post traumatic stress disorder, Renal disease, Rheumatoid arthritis ([facility]), Stroke ([facility]), Stroke risk, Tracheostomy in place ([facility]), Tremors of nervous system, Type II or [...] C) Recent Labs 12/04/23 1211 12/04/23 1614 12/04/23203712/05/23 0756 POCGLU 184* 194* 181* 131* I/O [...] 03:20 PM PO2ART 92.5 08/22/2011 03:20 PM [id number] 26.0 08/22/2011 03:20 PM NBEA NOT REPORTED 08/22/2011 03:20 PM PBEA 1.8 08/22/2011 03:20 PM [id number] 95.6 08/22/2011 03:20 PM FIO2 INFORMATION NOT PROVIDED 11/30/2023 12:05 AM Lab Results Component Value Date/Time SPECIAL NOT REPORTED 10/20/2012 10:15 AM SPECIAL NOT REPORTED 10/20/2012 10:15 AM Lab Results Component Value Date/Time CULTURE NO GROWTH 10/20/2012 10:15 AM CULTURE 10/20/2012 10:15 AM Performed at [facility] [address] [place] [id number] Radiology: XR CHEST (2 VW) Result Date: [...] Chronic kidney disease (CKD), stage III (moderate) ([facility]) 11/30/2023 Yes Generalized weakness 12/02/2023 Yes CHF [...] 2 units and then adjust accordingly Recurrent NWRk-IUIi-jyjfug neurology plan History of prothrombin gene mutation with prior DVT-continue Coumadin CKD stage III-continue to monitor creatinine and will need follow-up with nephrology/PCP PAM on CPAP Discharge planning after the above workup Lori Leblanc MD 12/05/2023 8:58 AM Images from the original note were not included. [facility] Office: [phone] Alberto Rice DO, Luciano Murphy DO, Humza [...] Parker MD, Garett Valentine MD, Rosalia Mobley, VEH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, Criss Gray, VEH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, Lefty Matute, VEH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, Brittny Quinones, [facility], Kacey Meeks, VEH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, Sugey Barillas, VEH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, Mary Jo Bonner, VEH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, Kathy Granados, VEH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, Sigrid Velásquez, VEH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, Janine Turpin, PA-C, Sue Willams, PA-C, Savi Iqbal, VEH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, Beckie Mello, VEH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, Nora Mace, VEH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, Jyoti Rojo, [facility], Ronda Sellers, VEH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, Janell Hoyt, VEH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, Caryl Gonzalez, VEH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 [facility] IN-PATIENT SERVICE [facility] Progress Note 12/04/2023 2:59 PM Name: Andry Pierre Acct: [id number] Room: 0143/0143-01 Day: 5 Admit Date: 11/29/2023 [...] brain stimulator 10/2008 who initially presented to [facility] 11/24 s/p fall in bathroom with acute left hip/upper thigh and back pain (hit head, no LOC) presents with No chief complaint on file. and is admitted to the hospital for the management of AMS (altered mental status). Patient transferred from [place] after undergoing tilt table evaluation for concern for orthostasis on 11/28/2022 with history of recurrent episodes of dizziness with history of stroke, complicated history. tilt table test complicated by worsening acute symptoms of dizziness with chest pain with altered sensorium. Although tilt test unremarkable for orthostasis, patient was evaluated in ED with acute symptoms and recommended admission pending transfer to [facility] for neurology evaluation. Unfortunately with bed availability [...] with occasional shortness of breath While in [place] ED patient did develop symptomatic hypoglycemia with blood sugars in the 50s with symptoms of feeling funny . 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 Subsequently returned status post 11/24 with worsening [...] of Arthritis, Asthma, CHF (congestive heart failure) ([facility]), CKD (chronic kidney disease) stage 2, GFR 60-89 ml/min, Clotting disorder ([facility]), Congenital heart disease, COPD (chronic obstructive pulmonary disease) ([facility]), Depression, Emphysema of lung ([facility]), GERD (gastroesophageal reflux disease), GERD (gastroesophageal reflux disease), Gout, Headache(784.0), Hernia, Hernia, History of blood clots, History of DVT (deep vein thrombosis), Hyperlipidemia, Insomnia, Irritable bowel syndrome, Kidney stones, Lumbar degenerative disc disease, Lumbar radiculopathy, Obesity, PAM (obstructive sleep apnea), Parkinson disease, Parkinson's disease, Post traumatic stress disorder, Renal disease, Rheumatoid arthritis ([facility]), Stroke ([facility]), Stroke risk, Tracheostomy in place ([facility]), Tremors of nervous system, Type II or [...] 03:20 PM PO2ART 92.5 08/22/2011 03:20 PM [id number] 26.0 08/22/2011 03:20 PM NBEA NOT REPORTED 08/22/2011 03:20 PM PBEA 1.8 08/22/2011 03:20 PM [id number] 95.6 08/22/2011 03:20 PM FIO2 INFORMATION NOT PROVIDED 11/30/2023 12:05 AM Lab Results Component Value Date/Time SPECIAL NOT REPORTED 10/20/2012 10:15 AM SPECIAL NOT REPORTED 10/20/2012 10:15 AM Lab Results Component Value Date/Time CULTURE NO GROWTH 10/20/2012 10:15 AM CULTURE 10/20/2012 10:15 AM Performed at [facility] [address] [address] Radiology: XR CHEST (2 VW) [...] Chronic kidney disease (CKD), stage III (moderate) ([facility]) Generalized weakness CHF (congestive heart failure) ([facility]) Uncontrolled hypertension Dysphagia GERD (gastroesophageal reflux disease) [...] 2 units and then adjust accordingly Recurrent AKHk-ROZk-knaftv neurology plan History of prothrombin gene mutation [...] Progress Note PATIENT: ANDRY PIERRE CSN #: [id number] : 1960 ADMIT DATE: 11/29/2023 8:06 PM [...] Thank You Torsten LEES BSN CCDS Email [email or web address] office hours M-F 6am to 2:30p Options [...] Diagnosis Code COPD (chronic obstructive pulmonary disease) ([facility]) J44.9 PAM (obstructive sleep apnea) G47.33 Obesity, morbid ([facility]) E66.01 Lumbar degenerative disc disease M51.36 Lumbar radiculopathy M54.16 Lumbar facet arthropathy M47.816 Osteoarthritis of both knees M17.0 Diabetic neuropathy ([facility]) E11.40 Morbid obesity ([facility]) E66.01 Sleep apnea, obstructive G47.33 Encounter for medication monitoring Z51.81 Chronic kidney disease (CKD), stage III (moderate) ([facility]) N18.30 Hyperkalemia E87.5 Generalized weakness R53.1 Pill rolling tremor R25.1 Muscle cramps R25.2 Acute renal failure (ARF) ([facility]) N17.9 Type II or unspecified type diabetes mellitus without mention of complication, not stated as uncontrolled E11.9 Depression F32.A Irritable bowel syndrome K58.9 Obesity E66.9 CHF (congestive heart failure) ([facility]) I50.9 Parkinson disease G20.A1 Tremors of nervous system R25.[address] ([facility]) Z93.0 Bilateral lower extremity edema R60.0 CKD (chronic kidney disease) N18.9 Uncontrolled hypertension I10 Dysphagia R13.10 Hyperlipidemia E78.5 History of DVT (deep vein thrombosis) Z86.718 Congenital heart disease Q24.9 Emphysema of lung ([facility]) J43.9 Hernia K46.9 Stroke risk Z91.89 GERD (gastroesophageal reflux disease) K21.9 Asthma J45.909 Renal disease N28.9 Gout M10.9 S/P deep brain stimulator placement Z96.89 Parkinsons G20.A1 CKD (chronic kidney disease) stage 2, GFR 60-89 ml/min N18.2 Type II or unspecified type diabetes mellitus with renal manifestations, not stated as uncontrolled(250.40) E11.29 Encounter for chronic pain management G89.29 Weight loss, intentional [id number] 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 Primary osteoarthritis of both knees M17.0 DM type 2 with diabetic peripheral neuropathy ([facility]) E11.42 Need for immunization against influenza Z23 Morbid obesity due to excess calories ([facility]) E66.01 Diabetic mononeuropathy associated with diabetes mellitus due to underlying condition ([facility]) E08.41 AMS (altered mental status) R41.82 Altered mental status R41.82 Multiple falls R29.6 Essential tremor G25.0 Syncope and collapse R55 Staring episodes R40.4 Altered awareness, transient R40.4 Acute encephalopathy G93.40 Neuropathy G62.9 Pain: Patient did not complain of any pain. Cognitive Treatment Treatment time: 0150-5565 Subjective: [x] Alert [x] Cooperative [] Confused [...] at discharge. Treatment completed by: Jimmy Alva, Solvent Process Extractor Operator Clinician Pharmacy Note Warfarin Consult follow-up Warfarin dose prior to admission: 17.5 mg Sun, 15 mg all other days (per medication management clinic in [place], last visit 11/11; clinic noted recent dose [...] sent to the ED. Ultimately transferred to [facility]. Neurology was consulted for encephalopathy. Patient's reported [...] been seen by neuromuscular neurology at the [facility] on 11/06/2023 with noted essential tremor. Prior [...] NEEDLE ANTHONY U/F 32G X 4 MM [facility] ACCU-CHEK COMPACT PLUS strip 0 Allergies: Andry Pierre is allergic to beta adrenergic blockers, hydralazine, neuromuscular blocking agents [neuromuscular blocking agents], neurontin [gabapentin], valium, and other. Past Medical History: Diagnosis Date Arthritis Asthma CHF (congestive heart failure) ([facility]) CKD (chronic kidney disease) stage 2, GFR 60-89 ml/min 02/16/2014 Clotting disorder ([facility]) Congenital heart disease COPD (chronic obstructive pulmonary disease) ([facility]) Depression Emphysema of lung ([facility]) GERD (gastroesophageal reflux disease) GERD (gastroesophageal reflux disease) Gout Headache(784.0) Hernia Hernia History of blood clots History of DVT (deep vein thrombosis) Hyperlipidemia Insomnia Irritable bowel syndrome Kidney stones Lumbar degenerative disc disease 01/25/2014 Lumbar radiculopathy 01/25/2014 Obesity PAM (obstructive sleep apnea) 11/16/2013 Parkinson disease Parkinson's disease Post traumatic stress disorder Renal disease Rheumatoid arthritis ([facility]) Stroke ([facility]) 2018 Stroke risk Tracheostomy in place ([facility]) 08/22/2011 Tremors of nervous system Type II [...] INR 3.0 12/04/2023 LABA1C 8.8 (H) 11/25/2023 [id number] 397 11/30/2023 MG 2.7 (H) 11/30/2023 PHOS [...] is already scheduled through his PCP in [place]. Please note that this note was generated using a voice recognition dictation software. Although every effort was made to ensure the accuracy of this automated stereotype finisher, some errors in stereotype finisher may have occurred. Pharmacy Note Warfarin Consult follow-up Warfarin dose prior to admission: 17.5 mg Sun, 15 mg all other days (per medication management clinic in [place], last visit 11/11; clinic noted recent dose [...] PharmD, 12/03/2023 4:34 PM Physical Therapy Facility/Department: [address] [place] Physical Therapy Daily Treatment Note Name: Andry Pierre : 1960 Date of Service: 12/03/2023 Discharge Recommendations: Patient would benefit from continued therapy after discharge PT Equipment Recommendations Equipment Needed: No Patient Diagnosis(es): There were no encounter diagnoses. Past Medical History: has a past medical history of Arthritis, Asthma, CHF (congestive heart failure) ([facility]), CKD (chronic kidney disease) stage 2, GFR 60-89 ml/min, Clotting disorder ([facility]), Congenital heart disease, COPD (chronic obstructive pulmonary disease) ([facility]), Depression, Emphysema of lung ([facility]), GERD (gastroesophageal reflux disease), GERD (gastroesophageal reflux disease), Gout, Headache(784.0), Hernia, Hernia, History of blood clots, History of DVT (deep vein thrombosis), Hyperlipidemia, Insomnia, Irritable bowel syndrome, Kidney stones, Lumbar degenerative disc disease, Lumbar radiculopathy, Obesity, PAM (obstructive sleep apnea), Parkinson disease, Parkinson's disease, Post traumatic stress disorder, Renal disease, Rheumatoid arthritis ([facility]), Stroke ([facility]), Stroke risk, Tracheostomy in place ([facility]), Tremors of nervous system, Type II or [...] Comments: pt sitting in bedside chair upon scientific technical writer entering room. pt retired to bedside chair with call light and bedside table within reach. BLE elevated. Chair alarm set. Subjective Subjective: RN and pt agreeable to work with therapy. pt states having pain in LLE 05/15. pt was adjusted for comfort end of [...] raises, and marches. Reps: 10 OutComes Score AM-PAC - Mobility AM-PAC Basic Mobility - [...] 3-5 steps with a railing?: A Lot AM-[facility] Inpatient Mobility Raw Score : 17 AM-[facility] Inpatient T-Scale Score : 42.13 Mobility Inpatient [...] their individualized functional mobility/self-care task. Letty Lemon PTA Occupational Therapy Facility/Department: [address] [place] Occupational Therapy Daily Treatment Note Name: Andry Pierre : 1960 Date of Service: 12/03/2023 Discharge Recommendations: Patient would benefit from continued therapy after discharge OT Equipment Recommendations ADL Assistive Devices: Shower Chair with back Other: weighted utensils Patient Diagnosis(es): There were no encounter diagnoses. Past Medical History: has a past medical history of Arthritis, Asthma, CHF (congestive heart failure) (HCC), CKD (chronic kidney disease) stage 2, GFR 60-89 ml/min, Clotting disorder ([facility]), Congenital heart disease, COPD (chronic obstructive pulmonary disease) ([facility]), Depression, Emphysema of lung ([facility]), GERD (gastroesophageal reflux disease), GERD (gastroesophageal reflux disease), Gout, Headache(784.0), Hernia, Hernia, History of blood clots, History of DVT (deep vein thrombosis), Hyperlipidemia, Insomnia, Irritable bowel syndrome, Kidney stones, Lumbar degenerative disc disease, Lumbar radiculopathy, Obesity, PAM (obstructive sleep apnea), Parkinson disease, Parkinson's disease, Post traumatic stress disorder, Renal disease, Rheumatoid arthritis ([facility]), Stroke ([facility]), Stroke risk, Tracheostomy in place ([facility]), Tremors of nervous system, Type II or [...] of arm rests. Cognition Overall Cognitive Status: [facility] Cognition Comment: pt having conversation with [...] Code Treatment Minutes: 15 Minutes (co-tx w/ TANGLED YARN SPOOL STRAIGHTENER for safety) CAROLE Arriola Physician Progress Note PATIENT: ANDRY PIERRE CSN #: [id number] : 1960 ADMIT DATE: 11/29/2023 8:06 PM [...] Thank You Torsten LEES BSN CCDS Email [email or web address] office hours M-F 6am to 2:30p Options [...] from the original note were not included. [facility] Office: [phone] Alberto Rice DO, Luciano Murphy DO, Humza [...] Rosalia Mobley, SHERYL, Criss Gray CNP, Lefty Matute, VEH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, Brittny Quinones, COLTON, Kacey Meeks, VEH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, Sugey Barillas, VEH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, Mary Jo Bonner VEH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, Kathy Granados VEH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, Sigrid Velásquez, VEH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, Janine Turpin, PARolfC, KATHRIN MercedesC, Savi Iqbal, VEH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, Beckie Mello, VEH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, Nora Mace, VEH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, Jyoti Rojo, CLOTH COLORS EXAMINER, Ronda Sellers, VEH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, Janell Hoyt, VEH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, Caryl Gonzalez, VEH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 [facility] IN-PATIENT SERVICE [facility] Progress Note 12/03/2023 12:01 PM Name: Andry Pierre Acct: [id number] Room: 0143/0143-01 IP Day: 4 Admit Date: 11/29/2023 8:06 PM [...] brain stimulator 10/2008 who initially presented to [facility] 11/24 s/p fall in bathroom with acute left hip/upper thigh and back pain (hit head, no LOC) presents with No chief complaint on file. and is admitted to the hospital for the management of AMS (altered mental status). Patient transferred from [place] after undergoing tilt table evaluation for concern for orthostasis on 11/28/2022 with history of recurrent episodes of dizziness with history of stroke, complicated history. tilt table test complicated by worsening acute symptoms of dizziness with chest pain with altered sensorium. Although tilt test unremarkable for orthostasis, patient was evaluated in ED with acute symptoms and recommended admission pending transfer to [facility] for neurology evaluation. Unfortunately with bed availability [...] with occasional shortness of breath While in [place] ED patient did develop symptomatic hypoglycemia with blood sugars in the 50s with symptoms of feeling funny . 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 Subsequently returned status post fall 11/24 with [...] of Arthritis, Asthma, CHF (congestive heart failure) ([facility]), CKD (chronic kidney disease) stage 2, GFR 60-89 ml/min, Clotting disorder ([facility]), Congenital heart disease, COPD (chronic obstructive pulmonary disease) ([facility]), Depression, Emphysema of lung (HCC), GERD (gastroesophageal reflux disease), GERD (gastroesophageal reflux disease), Gout, Headache(784.0), Hernia, Hernia, History of blood clots, History of DVT (deep vein thrombosis), Hyperlipidemia, Insomnia, Irritable bowel syndrome, Kidney stones, Lumbar degenerative disc disease, Lumbar radiculopathy, Obesity, PAM (obstructive sleep apnea), Parkinson disease, Parkinson's disease, Post traumatic stress disorder, Renal disease, Rheumatoid arthritis ([facility]), Stroke ([facility]), Stroke risk, Tracheostomy in place ([facility]), Tremors of nervous system, Type II or [...] -- TROPHS -- 23* -- Recent Labs 12/01/23 2004 12/02/23 0754 12/02/23 1204 12/02/23 1606 12/02/23 1955 12/03/23 0759 POCGLU 168* 117* 172* 169* 179* 83 ABG: Lab Results Component Value Date/Time PH 7.413 08/22/2011 03:20 PM PCO2 41.5 08/22/2011 03:20 PM PO2ART 92.5 08/22/2011 03:20 PM UWF2ALH 26.0 08/22/2011 03:20 PM NBEA NOT REPORTED 08/22/2011 03:20 PM PBEA 1.8 08/22/2011 03:20 PM [id number] 95.6 08/22/2011 03:20 PM FIO2 INFORMATION NOT PROVIDED 11/30/2023 12:05 AM Lab Results Component Value Date/Time SPECIAL NOT REPORTED 10/20/2012 10:15 AM SPECIAL NOT REPORTED 10/20/2012 10:15 AM Lab Results Component Value Date/Time CULTURE NO GROWTH 10/20/2012 10:15 AM CULTURE 10/20/2012 10:15 AM Performed at [facility] [address] [address] Radiology: XR CHEST (2 VW) [...] Chronic kidney disease (CKD), stage III (moderate) ([facility]) 11/30/2023 Yes Generalized weakness 12/02/2023 Yes CHF (congestive heart failure) ([facility]) 11/30/2023 Yes Uncontrolled hypertension 11/30/2023 Yes Dysphagia [...] Chronic kidney disease (CKD), stage III (moderate) ([facility] [facility]) Generalized weakness CHF (congestive heart failure) ([facility]) Uncontrolled hypertension Dysphagia GERD (gastroesophageal reflux disease) [...] 2 units and then adjust accordingly Recurrent CNQz-JRXc-rarift neurology plan History of prothrombin gene mutation with prior DVT-continue Coumadin CKD stage III-continue to monitor creatinine and will need follow-up with nephrology/PCP PAM on CPAP Discharge planning after the above workup Lori Leblanc MD 12/03/2023 12:01 PM Physician Progress Note PATIENT: ANDRY PIERRE [facility] #: [id number] : 1960 ADMIT DATE: 11/29/2023 8:06 PM [...] Thank You Torsten LEES BSN CCDS Email [email or web address] office hours M-F 6am to 2:30p Options [...] sent to the ED. Ultimately transferred to [facility]. Neurology was consulted for encephalopathy. Patient's reported [...] been seen by neuromuscular neurology at the [facility] on 11/06/2023 with noted essential tremor. Prior [...] NEEDLE ANTHONY U/F 32G X 4 MM [facility] ACCU-CHEK COMPACT PLUS strip 0 Allergies: Andry Pierre is allergic to beta adrenergic blockers, hydralazine, neuromuscular blocking agents [neuromuscular blocking agents], neurontin [gabapentin], valium, and other. Past Medical History: Diagnosis Date Arthritis Asthma CHF (congestive heart failure) ([facility]) CKD (chronic kidney disease) stage 2, GFR 60-89 ml/min 02/16/2014 Clotting disorder ([facility]) Congenital heart disease COPD (chronic obstructive pulmonary disease) ([facility]) Depression Emphysema of lung ([facility]) GERD (gastroesophageal reflux disease) GERD (gastroesophageal reflux disease) Gout Headache(784.0) Hernia Hernia History of blood clots History of DVT (deep vein thrombosis) Hyperlipidemia Insomnia Irritable bowel syndrome Kidney stones Lumbar degenerative disc disease 01/25/2014 Lumbar radiculopathy 01/25/2014 Obesity PAM (obstructive sleep apnea) 11/16/2013 Parkinson disease Parkinson's disease Post traumatic stress disorder Renal disease Rheumatoid arthritis ([facility]) Stroke ([facility]) 2018 Stroke risk Tracheostomy in place ([facility]) 08/22/2011 Tremors of nervous system Type II [...] INR 3.3 12/03/2023 LABA1C 8.8 (H) 11/25/2023 [id number] 397 11/30/2023 MG 2.7 (H) 11/30/2023 PHOS [...] is already scheduled through his PCP in [place]. Please note that this note was generated using a voice recognition dictation software. Although every effort was made to ensure the accuracy of this automated stereotype finisher, some errors in stereotype finisher may have occurred. Associated attestation - Krystian Colvin MD - 12/03/2023 9:03 PM EST Attending Physician Statement I have discussed the case of Andry Pierre including pertinent history and exam findings with the resident/ VEH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. I reviewed medications, clinical labs, x-rays and other diagnostic tests with the resident/ VEH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. I have seen and examined the patient [...] not tolerate those. He has been having [id number]-[id number]-[id number] in lower legs and feet and also [...] from the original note were not included. [facility] Office: [phone] Alberto Rice DO, Luciano Murphy DO, Humza [...] Parker MD, Garett Valentine MD, Rosalia Mobley, VEH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, Criss Gray, VEH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, Lefty Matute, VEH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, Brittny Quinones, DNP, Kacey Meeks, VEH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, Sugey Barillas, VEH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, Mary Jo Bonner, VEH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, Kathy Granados, VEH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, Sigrid Velásquez, VEH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, Janine Turpin, PA-C, Sue Willams, PA-C, Savi Iqbal, VEH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, Beckie Mello, VEH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, Nora Mace, VEH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, Jyoti Rojo, [facility], Ronda Sellers, VEH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, Janell Hoyt, VEH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, Caryl Gonzalez, VEH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 [facility] IN-PATIENT SERVICE [facility] Progress Note 12/02/2023 3:11 PM Name: Andry Pierre Acct: [id number] Room: 0143/0143-01 Day: 3 Admit Date: 11/29/2023 [...] back to home dose Pending Placement to [place] Brief History: Per documentation Andry Pierre is a 63 y.o. male with history of prior CVAs (with h/o expressive aphasia, dysphasia), h/o seizures, DM 2, HFpEF, CKD 3, chronic thrombophila w/ +prothrombin gene mutation s/p DVT/PE 01/2023, nonobst CAD (s/p cath 2019), asthma/COPD with PAM with history of Parkinsons vs MG s/p deep brain stimulator 10/2008 who initially presented to [facility] 11/24 s/p fall in bathroom with acute left hip/upper thigh and back pain (hit head, no LOC) presents with No chief complaint on file. and is admitted to the hospital for the management of AMS (altered mental status). Patient transferred from [place] after undergoing tilt table evaluation for concern for orthostasis on 11/28/2022 with history of recurrent episodes of dizziness with history of stroke, complicated history. tilt table test complicated by worsening acute symptoms of dizziness with chest pain with altered sensorium. Although tilt test unremarkable for orthostasis, patient was evaluated in ED with acute symptoms and recommended admission pending transfer to [facility] for neurology evaluation. Unfortunately with bed availability [...] with occasional shortness of breath While in [place] ED patient did develop symptomatic hypoglycemia with blood sugars in the 50s with symptoms of feeling funny . 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 Subsequently returned status post fall 11/24 with [...] of Arthritis, Asthma, CHF (congestive heart failure) ([facility]), CKD (chronic kidney disease) stage 2, GFR 60-89 ml/min, Clotting disorder ([facility]), Congenital heart disease, COPD (chronic obstructive pulmonary disease) ([facility]), Depression, Emphysema of lung ([facility]), GERD (gastroesophageal reflux disease), GERD (gastroesophageal reflux disease), Gout, Headache(784.0), Hernia, Hernia, History of blood clots, History of DVT (deep vein thrombosis), Hyperlipidemia, Insomnia, Irritable bowel syndrome, Kidney stones, Lumbar degenerative disc disease, Lumbar radiculopathy, Obesity, PAM (obstructive sleep apnea), Parkinson disease, Parkinson's disease, Post traumatic stress disorder, Renal disease, Rheumatoid arthritis ([facility]), Stroke ([facility]), Stroke risk, Tracheostomy in place ([facility]), Tremors of nervous system, Type II or [...] 2.8 Chemistry: Recent Labs 11/30/23 0648 12/01/23 0612/01/23 1554 12/02/23 0523 NA 146* 140 -- [...] MYOGLOBIN 59 -- -- -- Recent Labs 11/29/23201711/29/23203311/30/2348 11/30/23 0807 11/30/23 0830 11/30/23 0930 12/01/23 [...] 03:20 PM PO2ART 92.5 08/22/2011 03:20 PM [id number] 26.0 08/22/2011 03:20 PM NBEA NOT REPORTED 08/22/2011 03:20 PM PBEA 1.8 08/22/2011 03:20 PM [id number] 95.6 08/22/2011 03:20 PM FIO2 INFORMATION NOT PROVIDED 11/30/2023 12:05 AM Lab Results Component Value Date/Time SPECIAL NOT REPORTED 10/20/2012 10:15 AM SPECIAL NOT REPORTED 10/20/2012 10:15 AM Lab Results Component Value Date/Time CULTURE NO GROWTH 10/20/2012 10:15 AM CULTURE 10/20/2012 10:15 AM Performed at [facility] [address] [address] Radiology: XR CHEST (2 VW) Result Date: [...] Chronic kidney disease (CKD), stage III (moderate) ([facility]) 11/30/2023 Yes CHF (congestive heart failure) ([facility]) 11/30/2023 Yes Uncontrolled hypertension 11/30/2023 Yes Dysphagia [...] Problems: Lumbar degenerative disc disease Diabetic neuropathy ([facility]) Sleep apnea, obstructive Syncope and collapse Chronic kidney disease (CKD), stage III (moderate) ([facility]) CHF (congestive heart failure) ([facility]) Uncontrolled hypertension Dysphagia GERD (gastroesophageal reflux disease) S/P deep brain stimulator placement Spondylarthrosis DM type 2 with diabetic peripheral neuropathy ([facility]) Altered mental status Multiple falls Essential tremor [...] 2 units and then adjust accordingly Recurrent NPYg-BQOr-ldkgau neurology plan History of prothrombin gene mutation with prior DVT-continue Coumadin CKD stage III-continue to monitor creatinine and will need follow-up with nephrology/PCP PAM on CPAP Discharge planning after the above workup Lori Leblanc MD 12/02/2023 3:11 PM MARKETING ASSISTANT RETAIL DIVISION ALL NOTES Speech Language Pathology [facility] Cognitive Treatment Note Date: 12/02/2023 Patient s Name: Andry Pierre Diagnosis: Patient Active Problem List Diagnosis Code COPD (chronic obstructive pulmonary disease) ([facility]) J44.9 PAM (obstructive sleep apnea) G47.33 Obesity, morbid ([facility]) E66.01 Lumbar degenerative disc disease M51.36 Lumbar radiculopathy M54.16 Lumbar facet arthropathy M47.816 Osteoarthritis of both knees M17.0 Diabetic neuropathy ([facility]) E11.40 Morbid obesity ([facility]) E66.01 Sleep apnea, obstructive G47.33 Encounter for medication monitoring Z51.81 Chronic kidney disease (CKD), stage III (moderate) ([facility]) N18.30 Hyperkalemia E87.5 Fatigue R53.83 Pill rolling tremor R25.1 Muscle cramps R25.2 Acute renal failure (ARF) ([facility]) N17.9 Type II or unspecified type diabetes mellitus without mention of complication, not stated as uncontrolled E11.9 Depression F32.A Irritable bowel syndrome K58.9 Obesity E66.9 CHF (congestive heart failure) ([facility]) I50.9 Parkinson disease G20.A1 Tremors of nervous system R25.[address] ([facility]) Z93.0 Bilateral lower extremity edema R60.0 CKD (chronic kidney disease) N18.9 Uncontrolled hypertension I10 Dysphagia R13.10 Hyperlipidemia E78.5 History of DVT (deep vein thrombosis) Z86.718 Congenital heart disease Q24.9 Emphysema of lung ([facility]) J43.9 Hernia K46.9 Stroke risk Z91.89 GERD (gastroesophageal reflux disease) K21.9 Asthma J45.909 Renal disease N28.9 Gout M10.9 S/P deep brain stimulator placement Z96.89 Parkinsons G20.A1 CKD (chronic kidney disease) stage 2, GFR 60-89 ml/min N18.2 Type II or unspecified type diabetes mellitus with renal manifestations, not stated as uncontrolled(250.40) E11.29 Encounter for chronic pain management G89.29 Weight loss, intentional [id number] 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 Completed by Tess Robert Solvent Process Extractor Operator Clinician Co-signed by Sonja Madera M.S. CCC/MARKETING ASSISTANT RETAIL DIVISION Pharmacy Note Warfarin Consult follow-up Warfarin dose prior to admission: 17.5 mg Sun, 15 mg all other days (per medication management clinic in [place], last visit 11/11; clinic noted recent dose [...] NEEDLE ANTHONY U/F 32G X 4 MM [facility] ACCU-CHEK COMPACT PLUS strip 0 Allergies: Dereck Kunz is allergic to beta adrenergic blockers, hydralazine, neuromuscular blocking agents [neuromuscular blocking agents], neurontin [gabapentin], valium, and other. Past Medical History: Diagnosis Date Arthritis Asthma CHF (congestive heart failure) ([facility]) CKD (chronic kidney disease) stage 2, GFR 60-89 ml/min 02/16/2014 Clotting disorder ([facility]) Congenital heart disease COPD (chronic obstructive pulmonary disease) ([facility]) Depression Emphysema of lung ([facility]) GERD (gastroesophageal reflux disease) GERD (gastroesophageal reflux [...] (HCC) 2018 Stroke risk Tracheostomy in place ([facility]) 08/22/2011 Tremors of nervous system Type II [...] INR 2.8 12/02/2023 LABA1C 8.8 (H) 11/25/2023 [id number] 397 11/30/2023 MG 2.7 (H) 11/30/2023 PHOS 3.5 11/30/2023 EEG 12/02/2023: Interpretation: This EEG was abnormal due to disorganized and slow background in polymorphic delta and theta frequency. Clinical correlation: This EEG was abnormal. Disorganized and slow background suggested mild to moderate encephalopathy . Impression and Plan: Mr. Dereck Lesly is a 63 y.o. male with Episodic [...] meaning may be extrapolated by contextual derivation. MARKETING ASSISTANT RETAIL DIVISION ALL NOTES Speech Language Pathology [facility] Cognitive Treatment Note Date: 12/01/2023 Patient s Name: Andry Pierre Diagnosis: Patient Active Problem List Diagnosis Code COPD (chronic obstructive pulmonary disease) ([facility]) J44.9 PAM (obstructive sleep apnea) G47.33 Obesity, morbid ([facility]) E66.01 Lumbar degenerative disc disease M51.36 Lumbar radiculopathy M54.16 Lumbar facet arthropathy M47.816 Osteoarthritis of both knees M17.0 Diabetic neuropathy ([facility]) E11.40 Morbid obesity ([facility]) E66.01 Sleep apnea, obstructive G47.33 Encounter for medication monitoring Z51.81 Chronic kidney disease (CKD), stage III (moderate) ([facility]) N18.30 Hyperkalemia E87.5 Fatigue R53.83 Pill rolling tremor R25.1 Muscle cramps R25.2 Acute renal failure (ARF) ([facility]) N17.9 Type II or unspecified type diabetes mellitus without mention of complication, not stated as uncontrolled E11.9 Depression F32.A Irritable bowel syndrome K58.9 Obesity E66.9 CHF (congestive heart failure) ([facility]) I50.9 Parkinson disease G20.A1 Tremors of nervous system R25.[address] ([facility]) Z93.0 Bilateral lower extremity edema R60.0 CKD (chronic kidney disease) N18.9 Uncontrolled hypertension I10 Dysphagia R13.10 Hyperlipidemia E78.5 History of DVT (deep vein thrombosis) Z86.718 Congenital heart disease Q24.9 Emphysema of lung ([facility]) J43.9 Hernia K46.9 Stroke risk Z91.89 GERD (gastroesophageal reflux disease) K21.9 Asthma J45.909 Renal disease N28.9 Gout M10.9 S/P deep brain stimulator placement Z96.89 Parkinsons G20.A1 CKD (chronic kidney disease) stage 2, GFR 60-89 ml/min N18.2 Type II or unspecified type diabetes mellitus with renal manifestations, not stated as uncontrolled(250.40) E11.29 Encounter for chronic pain management G89.29 Weight loss, intentional [id number] 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 Completed by Tess Robert Solvent Process Extractor Operator Clinician Co-signed by Sonja Madera M.S. CCC/MARKETING ASSISTANT [employer]AIL DIVISION Pharmacy Note Warfarin Consult follow-up Warfarin dose prior to admission: 17.5 mg Sun, 15 mg all other days (per medication management clinic in [place], last visit 11/11; clinic noted recent dose [...] Daily PT/INR while inpatient. Nolan Mccarty, [place], 12/01/2023 1:02 PM Physical Therapy Facility/Department: [address] [place] Physical Therapy Initial Assessment Name: [...] brain stimulator 10/2008 who initially presented to [facility] 11/24 s/p fall in bathroom with [...] of Arthritis, Asthma, CHF (congestive heart failure) ([facility]), CKD (chronic kidney disease) stage 2, GFR 60-89 ml/min, Clotting disorder ([facility]), Congenital heart disease, COPD (chronic obstructive pulmonary disease) ([facility]), Depression, Emphysema of lung ([facility]), GERD (gastroesophageal reflux disease), GERD (gastroesophageal reflux disease), Gout, Headache(784.0), Hernia, Hernia, History of blood clots, History of DVT (deep vein thrombosis), Hyperlipidemia, Insomnia, Irritable bowel syndrome, Kidney stones, Lumbar degenerative disc disease, Lumbar radiculopathy, Obesity, PAM (obstructive sleep apnea), Parkinson disease, Parkinson's disease, Post traumatic stress disorder, Renal disease, Rheumatoid arthritis ([facility]), Stroke ([facility]), Stroke risk, Tracheostomy in place ([facility]), Tremors of nervous system, Type II or [...] Needs assistance Transfer Assistance: Needs assistance Active Community Advocate: No Patient's Community Advocate Info: riends from [facility] [employer]. does not drive Mode of Transportation: [...] person;Oriented to situation Cognition Overall Cognitive Status: [facility] Cognition Comment: pt having fluent conversation [...] of <10 inches is fall risk): Yes AM-PAC Basic Mobility - Inpatient How much [...] Lot AM-PAC Inpatient Mobility Raw Score : 17 AM-PAC Inpatient T-Scale Score : 42.13 Mobility Inpatient [...] from the original note were not included. [facility] Office: [phone] Alberto Rice DO, Luciano Murphy DO, Humza [...] Parker MD, Garett Valentine MD, Rosalia Mobley, VEH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, Criss Gray, VEH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, Lefty Matute, VEH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, Brittny Quinones, [facility], Kacey Meeks, VEH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, Sugey Barillas, VEH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, Mary Jo Bonner, VEH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, Kathy Granados, VEH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, Sigrid Velásquez, VEH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, Janine Turpin, PA-C, Sue Willams, PA-C, Savi Iqbal, VEH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, Beckie Mello, VEH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, Nora Mace, VEH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, Jyoti Rojo, CLOTH COLORS EXAMINER, Ronda Sellers, VEH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, Janell Hoyt, VEH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, Caryl Gonzalez, VEH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 [facility] IN-PATIENT SERVICE [facility] Progress Note 12/01/2023 1:10 PM Name: Andry Pierre Acct: [id number] Room: [address] [place] [address] Day: 2 Admit Date: 11/29/2023 8:06 PM [...] brain stimulator 10/2008 who initially presented to [facility] 11/24 s/p fall in bathroom with acute left hip/upper thigh and back pain (hit head, no LOC) presents with No chief complaint on file. and is admitted to the hospital for the management of AMS (altered mental status). Patient transferred from [place] after undergoing tilt table evaluation for concern for orthostasis on 11/28/2022 with history of recurrent episodes of dizziness with history of stroke, complicated history. tilt table test complicated by worsening acute symptoms of dizziness with chest pain with altered sensorium. Although tilt test unremarkable for orthostasis, patient was evaluated in ED with acute symptoms and recommended admission pending transfer to [facility] for neurology evaluation. Unfortunately with bed availability [...] with occasional shortness of breath While in [place] ED patient did develop symptomatic hypoglycemia with blood sugars in the 50s with symptoms of feeling funny . 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 Subsequently returned status post fall 11/24 with [...] of Arthritis, Asthma, CHF (congestive heart failure) ([facility]), CKD (chronic kidney disease) stage 2, GFR 60-89 ml/min, Clotting disorder ([facility]), Congenital heart disease, COPD (chronic obstructive pulmonary disease) ([facility]), Depression, Emphysema of lung ([facility]), GERD (gastroesophageal reflux disease), GERD (gastroesophageal reflux disease), Gout, Headache(784.0), Hernia, Hernia, History of blood clots, History of DVT (deep vein thrombosis), Hyperlipidemia, Insomnia, Irritable bowel syndrome, Kidney stones, Lumbar degenerative disc disease, Lumbar radiculopathy, Obesity, PAM (obstructive sleep apnea), Parkinson disease, Parkinson's disease, Post traumatic stress disorder, Renal disease, Rheumatoid arthritis ([facility]), Stroke ([facility]), Stroke risk, Tracheostomy in place ([facility]), Tremors of nervous system, Type II or [...] CL 107 -- 109* 114* 108* CO2 27 -- 24 21 22 GLUCOSE 77 -- 151* 49* 144* BUN [...] 59 -- Recent Labs 11/28/23 1425 11/28/23201411/29/23201711/29/23 20311/30/23 0648 11/30/23 0807 11/30/23 0830 11/30/23 0930 [...] 03:20 PM PO2ART 92.5 08/22/2011 03:20 PM [id number] 26.0 08/22/2011 03:20 PM NBEA NOT REPORTED 08/22/2011 03:20 PM PBEA 1.8 08/22/2011 03:20 PM [id number] 95.6 08/22/2011 03:20 PM FIO2 INFORMATION NOT PROVIDED 11/30/2023 12:05 AM Lab Results Component Value Date/Time SPECIAL NOT REPORTED 10/20/2012 10:15 AM SPECIAL NOT REPORTED 10/20/2012 10:15 AM Lab Results Component Value Date/Time CULTURE NO GROWTH 10/20/2012 10:15 AM CULTURE 10/20/2012 10:15 AM Performed at [facility] [address] [address] Radiology: XR CHEST (2 VW) Result Date: [...] 2 units and then adjust accordingly Recurrent YXYl-XBJd-rnhzyd neurology plan History of prothrombin gene mutation [...] NEEDLE ANTHONY U/F 32G X 4 MM [facility] ACCU-CHEK COMPACT PLUS strip 0 Allergies: Andry Magallanes Lesly is allergic to beta adrenergic blockers, hydralazine, neuromuscular blocking agents [neuromuscular blocking agents], neurontin [gabapentin], valium, and other. Past Medical History: Diagnosis Date Arthritis Asthma CHF (congestive heart failure) ([facility]) CKD (chronic kidney disease) stage 2, GFR 60-89 ml/min 02/16/2014 Clotting disorder ([facility]) Congenital heart disease COPD (chronic obstructive pulmonary disease) ([facility]) Depression Emphysema of lung ([facility]) GERD (gastroesophageal reflux disease) GERD (gastroesophageal reflux disease) Gout Headache(784.0) Hernia Hernia History of blood clots History of DVT (deep vein thrombosis) Hyperlipidemia Insomnia Irritable bowel syndrome Kidney stones Lumbar degenerative disc disease 01/25/2014 Lumbar radiculopathy 01/25/2014 Obesity PAM (obstructive sleep apnea) 11/16/2013 Parkinson disease Parkinson's disease Post traumatic stress disorder Renal disease Rheumatoid arthritis ([facility]) Stroke [facility] [facility] 2018 Stroke risk [address]ostomy in place ([facility]) 08/22/2011 Tremors of nervous system Type II [...] INR 2.8 12/01/2023 LABA1C 8.8 (H) 11/25/2023 [id number] 11/30/2023 MG 2.7 (H) 11/30/2023 PHOS [...] has not worked with PT yet Vitals: 11/30/23 2025 11/30/23 2325 12/01/23 0345 12/01/23 0403 BP: (!) 137/98 (!) 122/99 (!) 126/90 Pulse: 95 75 69 68 Resp: 18 18 16 Temp: 98.1 F (36.7 C) 98 F [...] any changes in patients neurologic status. Tal Latham CNP 12/01/23 6:20 AM Associated attestation - Marlon Barlow MD - 12/01/2023 10:04 PM EST I have reviewed and agree with Ms. Latham's note. I also saw and examined the patient today. He continues to have similar c/o weakness. I reviewed CTs of the spine, as well as the radiologists' reports. I am able to see records that he had an EMG done at [facility] on 11/06/23, but I am unable [...] with questions or concerns. Occupational Therapy Facility/Department: [address] [facility] Occupational Therapy Initial Assessment Name: Andry Pierre [...] of Arthritis, Asthma, CHF (congestive heart failure) ([facility]), CKD (chronic kidney disease) stage 2, GFR 60-89 ml/min, Clotting disorder ([facility]), Congenital heart disease, COPD (chronic obstructive pulmonary disease) ([facility]), Depression, Emphysema of lung ([facility]), GERD (gastroesophageal reflux disease), GERD (gastroesophageal reflux [...] the house) Transfer Assistance: Needs assistance Active Community Advocate: No (friends from [employer]. does not drive) Occupation: On disability [...] Within functional limits Cognition Overall Cognitive Status: [facility] Cognition Comment: pt having fluent conversation [...] AM-PAC Inpatient Daily Activity Raw Score: 20 AM-[facility] Inpatient ADL T-Scale Score : [...] Timed Code Treatment Minutes: 48 Minutes Pavel Bai/OT MARKETING ASSISTANT RETAIL DIVISION ALL NOTES Facility/Department: [address] [facility] EVALUATION NAME: Andry Pierre : 1960 ADMISSION DATE: 11/29/2023 ADMITTING DIAGNOSIS: has COPD (chronic obstructive pulmonary disease) ([facility]); PAM (obstructive sleep apnea); Obesity, morbid ([facility]); Lumbar degenerative disc disease; Lumbar radiculopathy; Lumbar facet arthropathy; Osteoarthritis of both knees; Diabetic neuropathy ([facility]); Morbid obesity ([facility]); Sleep apnea, obstructive; Encounter for medication monitoring; Chronic kidney disease (CKD), stage III (moderate) ([facility]); Hyperkalemia; Fatigue; Pill rolling tremor; Muscle cramps; Acute renal failure (ARF) ([facility]); Type II or unspecified type diabetes mellitus without mention of complication, not stated as uncontrolled; Depression; Irritable bowel syndrome; Obesity; CHF (congestive heart failure) ([facility]); Parkinson disease; Tremors of nervous system; Tracheostomy in place ([facility]); Bilateral lower extremity edema; CKD (chronic kidney disease); Uncontrolled hypertension; Dysphagia; Hyperlipidemia; History of DVT (deep vein thrombosis); Congenital heart disease; Emphysema of lung (HCC); Hernia; Stroke risk; GERD (gastroesophageal reflux disease); [...] brain stimulator 10/2008 who initially presented to [facility] 11/24 s/p fall in bathroom with acute left hip/upper thigh and back pain (hit head, no LOC) presents with No chief complaint on file. and is admitted to the hospital for the management of AMS (altered mental status). Patient transferred from [place] after undergoing tilt table evaluation for concern for orthostasis on 11/28/2022 with history of recurrent episodes of dizziness with history of stroke, complicated history. tilt table test complicated by worsening acute symptoms of dizziness with chest pain with altered sensorium. Although tilt test unremarkable for orthostasis, patient was evaluated in ED with acute symptoms and recommended admission pending transfer to [facility] for neurology evaluation. Unfortunately with bed availability [...] with occasional shortness of breath While in [place] ED patient did develop symptomatic hypoglycemia with blood sugars in the 50s with symptoms of feeling funny . 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 Subsequently returned status post fall 11/24 with [...] with partial PO only Treatment Plan Requires MARKETING ASSISTANT RETAIL DIVISION Intervention: Yes Referral To: GI Recommended Diet [...] Patient Education Response: Verbalizes understanding Therapy Time [id number] Janis Velazco M.S., [facility]-MARKETING ASSISTANT RETAIL DIVISION AMALIA Khanna 11/30/2023 1:24 PM MARKETING ASSISTANT RETAIL DIVISION ALL NOTES Facility/Department: [address] [facility] Initial Speech/Language/Cognitive Assessment NAME: Andry Pierre : 1960 ADMISSION DATE: 11/29/2023 ADMITTING DIAGNOSIS: has COPD (chronic obstructive pulmonary disease) ([facility]); PAM (obstructive sleep apnea); Obesity, morbid ([facility]); Lumbar degenerative disc disease; Lumbar radiculopathy; Lumbar facet arthropathy; Osteoarthritis of both knees; Diabetic neuropathy ([facility]); Morbid obesity ([facility]); Sleep apnea, obstructive; Encounter for medication monitoring; Chronic kidney disease (CKD), stage III (moderate) ([facility]); Hyperkalemia; Fatigue; Pill rolling tremor; Muscle cramps; Acute renal failure (ARF) ([facility]); Type II or unspecified type diabetes mellitus without mention of complication, not stated as uncontrolled; Depression; Irritable bowel syndrome; Obesity; CHF (congestive heart failure) ([facility]); Parkinson disease; Tremors of nervous system; Tracheostomy in place ([facility]); Bilateral lower extremity edema; CKD (chronic kidney disease); Uncontrolled hypertension; Dysphagia; Hyperlipidemia; History of DVT (deep vein thrombosis); Congenital heart disease; Emphysema of lung ([facility]); Hernia; Stroke risk; GERD (gastroesophageal reflux disease); Asthma; Renal disease; Gout; S/P deep brain stimulator placement; Parkinsons; CKD (chronic kidney disease) stage 2, GFR 60-89 ml/min; Type II or unspecified type diabetes mellitus with renal manifestations, not stated as uncontrolled(250.40); Encounter for chronic pain management; Weight loss, intentional; Spondylarthrosis; Primary osteoarthritis of both knees; DM type 2 with diabetic peripheral neuropathy ([facility]); Need for immunization against influenza; Morbid obesity due to excess calories ([facility]); Diabetic mononeuropathy associated with diabetes mellitus due to underlying condition ([facility]); AMS (altered mental status); and Altered mental [...] brain stimulator 10/2008 who initially presented to [facility] 11/24 s/p fall in bathroom with acute left hip/upper thigh and back pain (hit head, no LOC) presents with No chief complaint on file. and is admitted to the hospital for the management of AMS (altered mental status). Patient transferred from [place] after undergoing tilt table evaluation for concern for orthostasis on 11/28/2022 with history of recurrent episodes of dizziness with history of stroke, complicated history. tilt table test complicated by worsening acute symptoms of dizziness with chest pain with altered sensorium. Although tilt test unremarkable for orthostasis, patient was evaluated in ED with acute symptoms and recommended admission pending transfer to [facility] for neurology evaluation. Unfortunately with bed availability [...] with occasional shortness of breath While in [place] ED patient did develop symptomatic hypoglycemia with blood sugars in the 50s with symptoms of feeling funny . 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 Subsequently returned status post fall 11/24 with [...] week at this time. Recommendations: Recommendations Requires MARKETING ASSISTANT RETAIL DIVISION Intervention: Yes Recommendations: Modified barium swallow study [...] difficulties Social/Functional History Lives With: Spouse Active Community Advocate: No Occupation: Retired Objective: Oral Motor Labial: No impairment Dentition: Natural Lingual: No impairment Velum: No Impairment Mandible: No impairment Motor Speech Apraxic Characteristics: None Intelligibility: No impairment Overall Impairment Severity: None Cognition: Orientation Overall Orientation Status: Within Normal Limits Attention Attention: Exceptions to WFL Memory Memory: Exceptions to WFL Problem Solving Problem Solving: Exceptions to [facility] Abstract Reasoning Abstract Reasoning: Exceptions to WF Safety/Judgment Safety/Judgment: Within Functional Limits Orientation: 04/11 Verbal reasoning word associations: 1/5 Sequencing: Task 1 3/4 Immediate recall: 2/3, 3/5, 0/3 Delayed recall: 0/3 3 minute delay, 0/3 7 minute delay Verbal reasoning antonyms: 4/4 Inductive reasonin/6 Verbal reasoning similarities and differences: [...] Out 1157 Minutes 12 Janis Velazco M.S., [facility]-MARKETING ASSISTANT RETAIL DIVISION Pharmacy Note Warfarin Consult Andry Pierre is a 63 y.o. male for whom pharmacy has been consulted to manage warfarin therapy. Consulting Physician: Dr Jamia Nur Reason for Admission: AMS Warfarin dose prior to admission: 10 MG 5 DAYS, 15 MG 2 DAYS A WEEK followed by [facility] Warfarin indication: DVT/PE Target INR range: 2.0-3.0 Past Medical History: Diagnosis Date Arthritis Asthma CHF (congestive heart failure) ([facility]) CKD (chronic kidney disease) stage 2, GFR 60-89 ml/min 02/16/2014 Clotting disorder ([facility]) Congenital heart disease COPD (chronic obstructive pulmonary disease) ([facility]) Depression Emphysema of lung ([facility]) GERD (gastroesophageal reflux disease) GERD (gastroesophageal reflux disease) Gout Headache(784.0) Hernia Hernia History of blood clots History of DVT (deep vein thrombosis) Hyperlipidemia Insomnia Irritable bowel syndrome Kidney stones Lumbar degenerative disc disease 01/25/2014 Lumbar radiculopathy 01/25/2014 Obesity PAM (obstructive sleep apnea) 11/16/2013 Parkinson disease Parkinson's disease Post traumatic stress disorder Renal disease Rheumatoid arthritis ([facility]) Stroke ([facility]) 2018 Stroke risk Tracheostomy in place ([facility]) 08/22/2011 Tremors of nervous system Type II [...] to follow. Thank you Eros Ansari PharmD, [facility] Inpatient Clinical Pharmacist [phone] Images from the original note were not included. [facility] Office: [phone] Alberto Rice DO, Luciano Murphy DO, Humza James DO, Jc Maria DO, Nancy Paz MD, Naz Cruz MD, Demetrio Patel MD, Hortensia Maynard MD, Filiberto Vizcaino MD, Polly Ramos MD, Julia Blanco MD, Bibi Kim DO, Yaneli Lugo MD, Chepe fPeiffer MD, Andry Rice DO, Jamia Nur MD, Obi lAford DO, Jacquelyn Roper MD, Almita Moya MD, Jackie Rivas MD, Kylie Morales MD, Pasha Roy MD, Daniel Swenson MD, Marvin Sneed MD, Abdirahman Hunt MD, Da Moore MD, Geneva Casiano MD, Matthew Perez DO,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 information to criminally investigate or prosecute any alcohol or drug abuse patient.[facility] HospitalIn the event this information is protected by the Federal Confidentiality of Alcohol and Drug Abuse Patient Records regulations: The Federal rules restrict any use of the information to criminally investigate or prosecute any alcohol or drug abuse patient.[facility] Hospital[facility] the event this information is protected by the Federal Confidentiality of Alcohol and Drug Abuse Patient Records regulations: The Federal rules restrict any use of the information to criminally investigate or prosecute any alcohol or drug abuse patient.[facility] HospitalIn the event this information is protected by the Federal Confidentiality of Alcohol and Drug Abuse Patient Records regulations: The Federal rules restrict any use of the information to criminally investigate or prosecute any alcohol or drug abuse patient.[facility] HospitalIn the event this information is protected by the Federal Confidentiality of Alcohol and Drug Abuse Patient Records regulations: The Federal rules restrict any use of the information to criminally investigate or prosecute any alcohol or drug abuse patient.[facility] HospitalIn the event this information is protected by the Federal Confidentiality of Alcohol and Drug Abuse Patient Records regulations: The Federal rules restrict any use of the information to criminally investigate or prosecute any alcohol or drug abuse patient.[facility] HospitalIn the event this information is protected by the Federal Confidentiality of Alcohol and Drug Abuse Patient Records regulations: The Federal rules restrict any use of the information to criminally investigate or prosecute any alcohol or drug abuse patient.[facility] HospitalIn the event this information is protected by the Federal Confidentiality of Alcohol and Drug Abuse Patient Records regulations: The Federal rules restrict any use of the information to criminally investigate or prosecute any alcohol or drug abuse patient.[facility] Reason for Visit (unrecogniz ed section and content) Reason Comments DBS MARIA G message Reason Comments Pre-Op Visit Reason Comments Results Reason Comments DBS problem Reason Comments New Patient Consult Specialty Diagnoses / Procedures Referred By Felecia t Referred To Contact Neurology Diagnoses Weakness Procedures CONSULT TO NEUROLOGY OFFICE/OUTPATIENT NEW HIGH MDM 60-74 MINUTES Shane Parham PA-C [address] [place] [address] Referral ID Status Reason Start Date Expiration Date V isits Requested Visits Authorized [id number] Closed PCP Requested Referral 09/19/2023 09/18/2024 1 1 Specialty Diagnoses / Procedures Referred By Contac t Referred To Contact Diagnoses Syncope and collapse Procedures Tilt table Diogenes Rodriguez MD [id number] [place] [address] Referral ID Status Reason Start Date Expiration Date V isits Requested Visits Authorized [id number] Authorized 11/04/2023 11/03/2024 1 1 Specialty Diagnoses / Procedures Referred By Contac t Referred To Contact Diagnoses AMS (altered mental status) Altered mental status altered mental status [facility] [address] [address] [place] [address] [facility] [address] [place] [address] Referral ID Status Reason Start Date Expiration Date Visits Re quested Visits Authorized [id number] 1 1 Care Teams (unrecognized sec tion and content) Rodbuster Relationship Specialty Start Date End Date Say Mccormick MD PCP - General Family Practice 07/15/16 Rodbuster Relationship Specialty Start Date End Date Say Mccormick MD [address] [place] [address] PCP - General Family Practice 07/15/16 Saúl Lunsford MD [address] [place] [address] Cardiology 01/21/22 Rodbuster Relationship Specialty Start Date End Date Say Mccormick MD [address] [place] [address] PCP - General Family Practice 07/15/16 Saúl Lunsford MD [address] [place] [address] Cardiology 01/21/22 Rodbuster Relationship Specialty Start Date End Date Say Mccormick MD [address] [place] [address] PCP - General Family Practice 07/15/16 Saúl Lunsford MD [address] [facility] [place] [phone] Cardiology 01/21/22 Rodbuster Relationship Specialty Start Date End Date Say Mccormick MD [address] [facility] [place] [address] PCP - General Family Practice 07/15/16 Saúl Lunsford MD [address] [facility] [place] [phone] Cardiology 01/21/22 Rodbuster Relationship Specialty Start Date End Date Say Mccormick MD PCP - General Family Medicine 07/15/16 [facility] [address] [facility] [place] [address] Cardiology 01/21/22 Rodbuster Relationship Specialty Start Date End Date Say Mccormick MD PCP - General Family Medicine 07/15/16 Saúl Lunsford MD [address] [facility] [place] [phone] Cardiology 01/21/22 Rodbuster Relationship Specialty Start Date End Date Say Mccormick MD PCP - General Family Medicine 07/15/16 Saúl Lunsford MD [address] [facility] [place] [phone] Cardiology 01/21/22 Rodbuster Relationship Specialty Start Date End Date Say Mccormick MD [address] [place] [address] PCP - General Family Medicine 08/11/18 Rodbuster Relationship Specialty Start Date End Date Say Mccormick MD [address] [place] [address] PCP - General Family Medicine 08/11/18 Ordered [...] 2012 (Given - Provider: Merissa Rice RN) 2100 (Due) cloNIDine (CATAPRES) tablet 0.2 mg 0.2 mg, Oral, 2 TIMES DAILY, First dose (after last modification) on Fri12/05/23 at 2100, Until Discontinued 08 (Given - Provider: Rachel Espana RN)2003 (Given [...] 08 (Given - Provider: Rachel Espana RN) 09 (Given - Provider: Rachel Espana RN) 905 (Given - Provider: Janneth Nelson RN) insulin glargine (LANTUS) injection vial 2 Units 2 Units, SubCUTAneous, DAILY, First dose on Fri12/01/23 at 1330, Until Discontinued 08 (Given - Provider: Rachel Espana RN) 933 (Given - Provider: Rachel Espana RN) 09 (Given - Provider: Janneth Nelson RN) insulin lispro (HUMALOG) injection vial 0-4 Units 0-4 Units, SubCUTAneous, 3 TIMES DAILY WITH MEALS, First dose on 11/30/23 at 1700, Until Discontinued, Corrective Low Dose [...] Espana RN) 0905 (Given - Provider: Janneth Nelson, NABEEL) pantoprazole (PROTONIX) tablet 40 mg 40 mg, [...] Rice, NABEEL) 0906 (Given - Provider: Janneth Nelson, NABEEL)2100 (Due) valsartan (DIOVAN) tablet 160 mg 160 mg, Oral, DAILY, First dose (after last modification) on Fri12/01/23 at 0900, Until Discontinued, Substituted for Candesartan (ATACAND) 0748 (Given - Provider: Rachel Espana RN) 0933 (Given - Provider: Rachel Espana RN) 0906 (Given - Provider: Janneth Nelson, RN) Vitamin D (CHOLECALCIFEROL) tablet 5,000 Units 5,000 Units, Oral, DAILY, First dose on 11/30/23 at 0900, Until Discontinued, Labeling may look different. 25 wcg=5102 Units. Please double check dosages. 0748 (Given - Provider: Rachel Espana RN) 0933 (Given - Provider: Rachel Espana RN) 0906 (Given - Provider: Janneth Nelsno, RN) warfarin (COUMADIN) tablet 10 mg (COMPLETED) 10 mg, Oral, ONCE Warfarin, 1 dose, On 12/06/23 at 1800, Indication of Use: History of DVT/PE (indefinite), What is the patient's goal INR? 2.0 - 3.0, Review INR prior to administration. Hazardous med- See facility policy for handling/disposal 8700 (Given - Provider: Rachel Espana RN) warfarin [...] 6 HOURS PRN, Starting on 11/29/23 at 2012, Until Discontinued, Pain Mild (1-3), Fever, For temp greater than 100.4 F (38 C), Maximum dose of acetaminophen is 4000 mg from all sources in 24 hours. cyclobenzaprine (FLEXERIL) tablet 10 mg 10 mg, Oral, 3 TIMES DAILY PRN, Starting on Fri12/03/23 at 1202, Until Discontinued, Muscle spasms 0518 (Given - Provider: Merissa Rice, RN) 0538 (Given - Provider: Merissa Rice, RN)2012 (Given - Provider: Merissa Rice, RN) 0535 (Given - Provider: Merissa Rice, RN)1456 [...] Espana RN)1544 (Given - Provider: Rachel Espana RN)2005 (Given - Provider: Merissa Rice RN) 0032 [...] 6 HOURS PRN, Starting on 11/29/23 at 2012, Until Discontinued, Nausea, Vomiting, Administer if oral [...] BE BASED ON THE PRIMARY CLINICAL RECORDS. [employer] provides no warranty or guarantee of the accuracy or completeness of information in this document.
== END 2024-04-29 11:11 | disposition home or self-care (01) ==
PROVIDERS: PCP Family Medicine; Visit Provider Family Medicine
DX: M54.50 Low back pain, unspecified (principal)
CPT/HCPCS: 72110

== ENCOUNTER 2024-05-06 00:33 | Outpatient (RCR) | payer MEDICARE, MEDICAID, SELFPAY | END 2024-06-04 09:38 | disposition home or self-care (01) | LOC: MM 00:33 | PROVIDERS: PCP Family Medicine; Visit Provider Internal Medicine | DX: Z51.81 Encounter for therapeutic drug level monitoring (principal); Z79.01 Long term (current) use of anticoagulants; I82.409 Acute embolism and thrombosis of unspecified deep veins of unspecified lower extremity ==

== ENCOUNTER 2024-06-07 01:25 | Outpatient (RCR) | payer MEDICARE, MEDICAID, SELFPAY | END 2024-07-05 23:54 | disposition home or self-care (01) | LOC: MM 01:25 | PROVIDERS: PCP Family Medicine; Visit Provider Internal Medicine | DX: Z51.81 Encounter for therapeutic drug level monitoring (principal); Z79.01 Long term (current) use of anticoagulants; I82.409 Acute embolism and thrombosis of unspecified deep veins of unspecified lower extremity ==

== ENCOUNTER 2024-07-06 01:39 | Outpatient (RCR) | payer MEDICARE, MEDICAID, SELFPAY | END 2024-08-05 23:43 | disposition home or self-care (01) | LOC: MM 01:39 | PROVIDERS: PCP Family Medicine; Visit Provider Internal Medicine | DX: Z51.81 Encounter for therapeutic drug level monitoring (principal); Z79.01 Long term (current) use of anticoagulants; I82.409 Acute embolism and thrombosis of unspecified deep veins of unspecified lower extremity ==

== ENCOUNTER 2024-07-26 10:07 | Outpatient (OUT) | payer MEDICARE, MEDICAID, SELFPAY ==
--- NOTE | 2024-07-26 10:23 | XR_ITS ---
The [address] [address] Patient Name: ANDRY PIERRE MRN: [id number] date: 1960 Sex: M Assigned Patient Location: LAB Current Patient Location: Accession/Order Number: [id number] Exam Date: 07/26/2024 10:25 Report Date: 07/27/2024 09:42 At the request of: LEN GOMEZ Procedure: XR chest 2V PROCEDURE: XR chest 2V DATE: 07/26/2024 9:25 AM CDT COMPARISONS: CT chest 02/24/2024 CLINICAL INDICATION: 63 years Male Acute Chronic Heart Failure FINDINGS: The cardiomediastinal silhouette and pulmonary vasculature are within normal limits. Previous CT from 02/24/2024 described numerous tiny calcified and noncalcified nodules scattered within the lungs. These findings are not well defined on today's chest radiograph. Today's chest shows slight increase interstitial markings with the lungs are otherwise clear. There is no evidence of pleural effusion or pneumothorax. A loop recorder overlies the anterior left chest. Electronic device overlies the upper left chest with the lead extending to the left neck. XR/XR chest 2V IMPRESSION: Slight scattered increased interstitial markings. This may represent some atelectasis or small amount of chronic lung changes. Alternatively, it could represent a small amount of interstitial fluid due to congestion. Exam is otherwise within normal limits. Electronically authenticated by: NOLAN HELM Date: 07/27/2024 09:42
--- OUTSIDE RECORDS SUMMARY | 2024-07-26 10:25 | XMS_ITS | CCD ---
Author Organization [facility] ion [facility] Care Team Providers Care Trust Clerk Name Role Phone Say Mccormick MD Primary Care Provider [phone] Say Mccormick MD Primary Care Provider [phone] Jonn GEORGE, ab Kovacs Unavailable Sanjay Dooley Unavailable JESUS RUSS Attending Unavailable JESUS RUSS Admitting Unavailable SELF, REFERRED Referring Unavailable SAY MCCORMICK Primary Care Unavailable AMY REMY Surgeon Unavailable RI Procedure Practitioner Unavailab le RI Procedure Practitioner Unavailab DAVON Rivera Surgeon Unavailable ANNY Silva, DR SMITH Admitting Unavailable DR SAY REECE Primary Care Unavailable DR SAY REECE Consulting Unavailable DR SAY REECE Attending Unavailable VALENTINO, DR ROCK Das Consulting Unavailable CHRISTINA, PRANAV Attending Unavailable PRANAV VASQUEZ Admitting Unavailable DR SAY REECE Primary Care Unavailable PRANAV VASQUEZ Consulting Unavailable NOEMÍ DEWEYIKH H Attending Unavailable JODIE HURST Primary Care Unavailable MACO, CARMICHAEL H Admitting Unavailable SOFYA HIDALGO Attending Unavailable SOFYA HIDALGO Admitting Unavailable DR SAY REECE Primary Care Unavailable ALISA HOLMAN Consulting Unavailable SOFYA HIDALGO Consulting Unavailable LOS BAIRES Consulting Unavailable MÑEO HIDALGOINDA Admitting Unavailable DR SAY REECE Primary Care Unavailable DR ROCK AVELAR Consulting Unavailable SOFYA HIDALGO Attending Unavailable BERRY, SOFYA Consulting Unavailable FASTAN, CARMICHAEL H Attending Unavailable NOEMÍ DEWEYIKH H Admitting Unavailable DR SAY REECE Primary Care Unavailable ARIS, JODIE Admitting [...] Care Provider Jonn GEORGE, Saúl Kovacs Unavailable [phone] Marlena GEORGE, Ramon Morales Attending Unavailable SAY MCCORMICK Primary Care Unavailable HOY, SAY M Referring Unavailable HOY, SAY M Primary Care Unavailable HOY, SAY M Referring Unavailable HOY, SAY M Primary Care Unavailable HOY, SAY M Referring Unavailable HOY, SAY M Primary Care Unavailable HOY, SAY M Primary Care Unavailable HENNIGSSHANE L Referring Unavailable HOY, SAY M Primary Care Unavailable OBED FLORIAN Attending Unavailable HENSHANE GONZALEZ Referring Unavailable HOY, ASY M Primary Care Unavailable HENNISANDI, SHANE L Referring Unavailable HOY, SAY M Primary Care Unavailable SHANE PARHAM Attending Unavailable Say Mccormick MD Primary Care Provider [phone] YUDITH MARTINEZ Referring Unavailable HOY, SAY M Primary Care Unavailable DIOGENES RODRIGUEZ Referring Unavailable HOY, ASY M Primary Care Unavailable HOY, SAY M Primary Care Unavailable CHARLEE ARCE Referring Unavailable HOY, SAY M Primary Care Unavailable SEVERIANO MORENO Consulting Unavailable JACKIE RIVAS Admitting Unavailable LORI LEBLANC Attending Unavailable CHARO SLAUGHTER Consulting Unavailable MARLON BARLOW Consulting Unavailable JEFFERY CHRISTINE Consulting Unavailable HOY, SAY M Primary Care Unavailable YANCY CERVANTES Attending Unavailab le HOY, SAY M Referring Unavailable GRAZIANYANCY Vargas Referring Unavailab YANCY Dimas Referring Unavailab ARJUN Palumbo Attending Unavailable YANCY CERVANTES Attending Unavailab YANCY Dimas Attending Unavailab ARJUN Palumbo Attending Unavailable ARJUN BARONE Attending Unavailable DIOGENES RODRIGUEZ Referring Unavailable DIOGENES RODRIGUEZ Attending Unavailable SURI BANDA Attending Unavailable TIFFANIE LEIGH Referring Unavailable DIOGENES RODRIGUEZ Referring Unavailable DEEPA DOYLE Referring Unavailable LEN GOMEZ Attending Unavailable TIFFANIE LEIGH Referring Unavailable DIOGENES RODRIGUEZ Referring Unavailable LAURA ROSADO Attending Unavailable DIOGENES RODRIGUEZ Attending Unavailable SOFYA HIDALGO Attending Unavailable SOFYA HIDALGO Attending Unavailable DIOGENES RODRIGUEZ Referring Unavailable DIOGENES RODRIGUEZ Referring Unavailable Allergies Allergy Classification Reported Allergen(s) Allergy Type Date of Onset Reaction(s) Facility (10 sources) beta-Blocking agent; Translations: [BETA-BLOCKERS (BETA-ADRENERGIC BLOCKING AGTS)] Drug Allergy 07-24-20 11 Itching, Other: See Comments [facility] (16 sources) diazePAM; Translations: [DIAZEPAM] Drug Allergy 03-03-20 08 Unknown [facility] (18 sources) gabapentin; Translations: [GABAPENTIN] Drug Allergy 11-25-19 09 Other: See Comments, Unknown [facility] (15 sources) hydrALAZINE; Translations: [HYDRALAZINE] Drug Allergy 05-19-20 13 Unknown [facility] (3 sources) Adrenergic Beta-Antagonists Drug allergy Unknown [facility] Other (2 sources) Adrenergic Beta-Antagonists Drug allergy (disorder) 05-29-20 16 [facility] (4 sources) diazePAM Drug Allergy 05-19-20 13 [facility] (1 source) gabapentin Drug Allergy 01-23-20 19 [facility] (1 source) gabapentin Drug Allergy 05-29-20 16 [facility] (5 sources) beta-Blocking agent Drug Allergy 07-24-20 11 Itching, Other: See Comments [facility] (2 sources) Neuromuscular Blocking Agents Propensity to adverse reactions to drug 05-19-20 13 [facility] NEGATED: Highlighted row has been ruled out! (2 sources) Other Propensity to adverse reactions 07-29-20 13 Nausea And Vomiting [facility] Medications Current Medications Medication Drug Class(es) Dates [...] tablet 10 mg Start: 10-20-2018 warfarin (COUM ENOZ) 10 mg tablet Take 1 tablet by [...] 0 Active take 2 tablets by mo [facility] once daily Warfarin 5mg 5 mg 2 TABLETS orally ONCE A DAY Active Comment on above: [facility] Take 7.5mg one [...] on above: Take 1 capsule by mo [facility] four times daily. cetirizine hydrochloride 10 mg oral tablet (6 sources) Histamine-1 Receptor Antagonist Start: 04-01-20 take 1 tablet by mouth once daily cetirizine (ZYRTEC) 10 mg tablet Take 1 tablet by mouth once daily. 0 04/01/2023 Active Comment on above: Take 1 tablet by [facility] once daily. empagliflozin 10 mg oral tablet (3 sources) Sodium-Glucose Cotransporter 2 Inhibitor Start: 03-05-20 End: 12-02-19 take 1 tablet by mouth once JARDIANCE 10 mg tablet Take 1 tablet by mouth every afternoon. 0 08/28/2023 Active Comment on above: Take 1 tablet by [facility] every afternoon. furosemide 40 mg oral tablet (14 sources) Loop Diuretic Start: 11-08-19 End: 12-02-19 take 1 tablet by mouth twice daily furosemide (LASIX) 40 MG tablet TAKE 1 TABLET BY MOUTH TWICE A DAY 0 11/24/2021 12/02/2023 Discontinued (LIST CLEANUP) Comment on above: Take 1 tablet by [facility] twice daily. 250 ml glucose 50 mg/ml [...] (LIST CLEANUP) take 1 capsule by mo [facility] three times daily for pain indomethacin (INDOCIN) 50 mg capsule indomethacin 50 mg capsule take 1 capsule by mouth three times a day if needed for pain 0 Active Comment on above: indomethacin 50 mg c apsule take 1 capsule by mouth three times a day if needed for pain TAKE 1 CAPSULE BY MO [facility] THREE TIMES A DAY NEEDED FOR PAIN [...] mg oral tablet (4 sources) Biguanide Start: take 500 mg by mouth twice daily at mealtime 500 mg, Oral, 2 TIMES DAILY WITH MEALS, First dose on 11/30/23 at 0800, Until Discontinued Start: 04-01-2023 End: 12-02-2023 take 1 tablet by mouth twice daily metFORMIN (GLUCOPHAGE) 500 mg tablet Take 1 tablet by mouth two times a day. 0 04/01/2023 Active Comment on above: Take 1 tablet by [facility] two times a day. montelukast [...] sources) Dihydropyridine Calcium Channel Noah Start: 01-14-20 22 take 90 mg by mouth once [...] (15 sources) Proton Pump Inhibitor Start: 11-29-19 take 40 mg by mouth once daily 40 mg, Oral, DAILY, First dose on 11/30/23 at 0900, Until Discontinued Do not crush or break. Comment on above: Take 40 mg by mouth once daily. polyethylene glycol 3350 [id number] mg powder for oral solution (1 source) [...] heart, unspecified] 12-01-2014 Chronic Chronic kidney disease (16 sources) Chronic kidney [...] Translations: [Heart failure, unspecified] Onset: 2 Chronic Diabetes mellitus with complications (17 sources) Type 2 diabetes mellitus; Translations: [Type 2 diabetes mellitus with other specified complication] Onset: 4 Resolved: 2 Chronic Diabetes mellitus without complication (11 sources) Diabetes mellitus; Translations: [Type 2 diabetes mellitus without complications] 11-25-2008 Chronic Disorders of lipid metabolism (6 sources) Pure hypercholesterolemia; Translations: [Pure hypercholesterolemia, unspecified] Onset: 2 Resolved: 2 Chronic Esophageal disorders (13 sources) Gastroesophageal reflux disease; [...] in partial remission] Onset: 0 11-16-2019 Chronic Nutritional deficiencies (1 source) Vitamin D deficiency, unspecified; Translations: [Vitamin D deficiency, unspecified] Onset: 4 Chronic Osteoarthritis (4 sources) Bilateral osteoarthritis of knees; Translations: [Bilateral primary osteoarthritis of knee] Onset: 4 08-18-2014 Chronic Other acquired deformities (2 sources) Spondylolysis, lumbar region; Translations: [Spondylolysis, lumbar region] Onset: 4 Episodic Other aftercare (5 sources) Encounter for therapeutic drug level monitoring; Translations: [ENC THERAPEUTC DRUG LEVL MONITORING] Onset: 3 Episodic Other aftercare (1 source) retirement (current) use of anticoagulants; Translations: [EXTENSION SERVICE SPECIALIST CURRNT USE ANTICOAGULANTS] Onset: 3 Episodic Other aftercare (1 source) retirement (current) use of insulin; Translations: [retirement (current) use of insulin] Onset: 4 Episodic [...] Date Episodic/Chronic Acute and unspecified renal failure (4 sources) Acute renal failure syndrome; Translations: [Acute kidney failure, unspecified] Onset: 03-15-2014 Episodic Cardiac dysrhythmias (2 sources) Palpitations; Translations: [Palpitations] Onset: 03-23-2024 Episodic E Codes: Fall (2 sources) Unspecified fall, sequela; Translations: [Unspecified fall, sequela] Onset: 01-13-2024 Episodic Fluid and electrolyte disorders (11 sources) Hypervolemia; Translations: [Fluid overload, unspecified] Onset: 03-15-2014 10-08-2018 Episodic Immunizations and screening for infectious disease (3 sources) 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; Translations: [Carrier or suspected carrier of Methicillin resistant Staphylococcus aureus] Onset: 07-18-2015 Episodic Nonspecific chest pain (3 sources) Chest pain, unspecified; Translations: [Other chest pain] Onset: 05-27-2022 Episodic Other aftercare (2 sources) Patient encounter [...] Translations: [Lumbago] Onset: 01-25-2014 11-25-2008 Episodic Syncope (5 sources) Syncope and collapse; Translations: [Syncope and collapse] Onset: 11-28-2023 12-01-2023 Episodic Results Test Name Value Interpretation Reference Range Facility Office Visiton 07-13-2024 Follow-up visit [id number] Joanie Pierre 1960 M Date Provider Department Center 07/13/2024 Sami-DIOGENES RODRIGUEZ [facility] Family History Problem Relation Age of Onset Coronary artery disease Mother Coronary artery disease Father Family Status - Relation Status Age at Mother Father Level of Service:93319 RI OFFICE/OUTPATIENT ESTABLISHED LOW MDM 20 MIN Normal [facility] Office Visiton 06-02-2024 Follow-up visit [id number] Joanie Pierre 1960 M Date Provider Department Center 06/02/2024 LAURA RIVAS [facility] MP[facility]TH[facility] Family History Problem Relation Age of Onset Coronary artery disease Mother Coronary artery disease Father Family Status - Relation Status Age at Mother Father Level of Service:59055 RI OFFICE/OUTPATIENT NEW LOW MDM 30 MINUTES Reason for Visit and Comments: Pain [136] Normal [facility] Office Visiton 03-26-2024 Follow-up visit [id number] Joanie Pierre 1960 M Date Provider Department Center 03/26/2024 [id number] GOMEZ [facility] Family History Problem Relation Age of Onset Coronary artery disease Mother Coronary artery disease Father Family Status - Relation Status Age at Mother Father Level of Service:66931 RI OFFICE/OUTPATIENT ESTABLISHED MOD MDM 30 MIN Normal [facility] URN MACROSCOPIC NURon 2023 BILIRUBIN ALE Negative Normal NEG [facility] Comment on above: Performed By: #### N UM #### [facility] ([id number]) [address] [place] [address] BLOOD/HGB ALE Negative Normal NEG [facility] Comment on above: Performed By: #### N UM #### [facility] ([id number]) [address] [place] [address] 44758 GLUCOSE ALE >=1000 Abnormal NEG [facility] Comment on above: Performed By: #### N UM #### [facility] ([id number]) [address] [place] [address] [place] [address] KETONES ALE Negative Normal NEG [facility] Comment on above: Performed By: #### N UM #### [facility] ([id number]) [address] [place] [address] 83137 LEUKOCYTE ESTERASE ALE Negative Normal NEG [facility] Comment on above: Performed By: #### N UM #### [facility] ([id number]) [address] [place] [address] 12645 NITRITE ALE Negative Normal NEG [facility] Comment on above: Performed By: #### N UM #### [facility] ([id number]) [address] [place] [address] 09422 PH ALE 5.0 Normal 5.0-8.5 [facility] Comment on above: Performed By: #### N UM #### [facility] ([id number]) [address] [place] [address], [place] [address] PROTEIN ALE Negative Normal NEG [facility] Comment on above: Performed By: #### N UM #### [facility] ([id number]) [address] [place] [address] 68519 SPECIFIC GRAVITY ALE 1.010 Normal 1.003-1.035 [facility] Comment on above: Performed By: #### N UM #### [facility] ([id number]) [address] [place] [address] 43320 UROBILINOGEN ALE 0.2 eu/dL Normal <1.1 [facility] Comment on above: Performed By: #### N UM #### [facility] ([id number]) [address] [place] [address] Office Visiton 01-29-2024 Follow-up visit [id number] Joanie Pierre 1960 M Date Provider Department Center 01/29/2024 SOFYA MUNIZ Family History Problem Relation Age of Onset Coronary artery disease Mother Coronary artery disease Father Family Status - Relation Status Age at Mother Father Level of Service:33074 RI OFFICE/OUTPATIENT ESTABLISHED MOD MDM 30 MIN Normal [facility] Office Visiton 01-13-2024 Follow-up visit [id number] Joanie Pierre 1960 M Date Provider Department Center 01/13/2024 SOFYA MUNIZ Family History Problem Relation Age of Onset Coronary artery disease Mother Coronary artery disease Father Family Status - Relation Status Age at Mother Father Level of Service:66326 RI OFFICE/OUTPATIENT ESTABLISHED MOD MDM 30 MIN Normal [facility] Glucose,Whole Bloodon 2023 Glucose [Mass/Vol] 203 mg/dL High 75-110 [facility] Glucose [Mass/Vol] 206 mg/dL High 75-110 [facility] Glucose [Mass/Vol] 167 mg/dL High 75-110 [facility] Glucose [Mass/Vol] 137 mg/dL High 75-110 [facility] POC Glucose Fingerstickon Glucose [Mass/Vol] 203 mg/dL High 75 - 110 mg/dL [facility] Interpretation and review of laboratory results Abnormal [facility] Glucose [Mass/Vol] 206 mg/dL High 75 - 110 mg/dL [facility] Interpretation and review of laboratory results Abnormal [facility] Glucose [Mass/Vol] 167 mg/dL High 75 - 110 mg/dL [facility] Interpretation and review of laboratory results Abnormal [facility] Glucose [Mass/Vol] 137 mg/dL High 75 - 110 mg/dL [facility] Interpretation and review of laboratory results Abnormal [facility] PTon 12-08-2023 INR Coag (PPP) [Relative time] 3.3 {INR} Normal [facility] Comment on above: Result Comment: Therapeutic Range: Moderate Anticoagulant Intensity: INR = 2.0-3.0 High Anticoagulant Intensity: INR = 2.5-3.5 Performed By: #### P T #### [employer] [address] [place], [place] [id number] Yard[employer] Control Clerk: Jasbir Montalvo MD PT Coag (PPP) [Time] 32.3 s High 11.7-14.9 [facility] Comment on above: Performed By: #### P T #### [employer] [address] [place], [place] [id number] Yardage Control Clerk: Jasbir Montalvo MD Protime-INRon 12-08-2023 INR Coag (PPP) [Relative time] 3.3 {INR} [facility] Comment on above: Therapeutic Range: Moderate Anticoagulant Intensity: INR = 2.0-3.0 High Anticoagulant Intensity: INR = 2.5-3.5 Interpretation and review of laboratory results Abnormal [facility] PT Coag (PPP) [Time] 32.3 s High [facility] Glucose,Whole Bloodon 2023 Glucose [Mass/Vol] 193 mg/dL High 75-110 [facility] Glucose [Mass/Vol] 154 mg/dL High 75-110 [facility] Glucose [Mass/Vol] 145 mg/dL High 75-110 [facility] Glucose [Mass/Vol] 132 mg/dL High 75-110 [facility] Hemoglobin and Hematocriton 12-07-2023 Hematocrit (Bld) [Volume fraction] 44.1 % 40.7 - 50.3 % [facility] Hemoglobin (Bld) [Mass/Vol] 14.0 g/dL 13.0 - 17.0 g/dL [facility] Hgb/Hcton 12-07-2023 Hematocrit (Bld) [Volume fraction] 44.1 % Normal 40.7-50.3 [facility] Comment on above: Performed By: #### P HO, CDP, RA, PT, SED, BMPX, FREDA, MG, LD, CRP, FEBC, B12FOL, PTT, C4, CCPAB, FERI, IOCAL, CORTI, CK, C3, REJEC #### [employer] [address] [place] [address] Yardage Control Clerk: Jasbir Montalvo MD Hemoglobin (Bld) [Mass/Vol] 14.0 g/dL Normal 13.0-17.0 [facility] Comment on above: Performed By: #### P HO, CDP, RA, PT, SED, BMPX, FREDA, MG, LD, CRP, FEBC, B12FOL, PTT, C4, CCPAB, FERI, IOCAL, CORTI, CK, C3, REJEC #### [employer] [address] [place] [address] Yardage Control Clerk: Jasbir Montalvo MD No Panel Informationon 12-06 [facility] Manufacturers' Inventory POC Glucose Fingerstickon Glucose [Mass/Vol] 193 mg/dL High 75 - 110 mg/dL [facility] [employer] Interpretation and review of laboratory results Abnormal [facility] Manufact[employer] Inventory [facility] [employer] Glucose [Mass/Vol] 154 mg/dL High 75 - 110 mg/dL [facility] Interpretation and review of laboratory results Abnormal [facility] Glucose [Mass/Vol] 145 mg/dL High 75 - 110 mg/dL [facility] Interpretation and review of laboratory results Abnormal [facility] Glucose [Mass/Vol] 132 mg/dL High 75 - 110 mg/dL [facility] Interpretation and review of laboratory results Abnormal [facility] PTon 12-07-2023 INR Coag (PPP) [Relative time] 3.2 {INR} Normal [facility] Comment on above: Result Comment: Therapeutic Range: Moderate Anticoagulant Intensity: INR = 2.0-3.0 High Anticoagulant Intensity: INR = 2.5-3.5 Performed By: #### P HO, CDP, RA, PT, SED, BMPX, FREDA, MG, LD, CRP, FEBC, B12FOL, PTT, C4, CCPAB, FERI, IOCAL, CORTI, CK, C3, REJEC #### [employer] [address] [place], [place] [id number] Yardage Control Clerk: Jasbir Montalvo MD PT Coag (PPP) [Time] 32.1 s High 11.7-14.9 [facility] Comment on above: Performed By: #### P HO, CDP, RA, PT, SED, BMPX, FREDA, MG, LD, CRP, FEBC, B12FOL, PTT, C4, CCPAB, FERI, IOCAL, CORTI, CK, C3, REJEC #### [employer] [address] [place], [place] [phone] Yardage Control Clerk: Jasbir Montalvo MD Platelet Counton 12-07-2023 Platelets (Bld) [#/Vol] 252 10*3/uL Normal 138-453 [facility] Comment on above: Performed By: #### P HO, CDP, RA, PT, SED, BMPX, FREDA, MG, LD, CRP, FEBC, B12FOL, PTT, C4, CCPAB, FERI, IOCAL, CORTI, CK, C3, REJEC #### [facility] [address] [id number] Yardage Control Clerk: Jasbir Montalvo MD Platelets (Bld) [#/Vol] 252 10*3/uL [facility] 12-07-2023 INR Coag (PPP) [Relative time] 3.2 {INR} [facility] Comment on above: Therapeutic Range: Moderate Anticoagulant Intensity: INR = 2.0-3.0 High Anticoagulant Intensity: INR = 2.5-3.5 Interpretation and review of laboratory results Abnormal [facility] [email or web address] PT Coag (PPP) [Time] 32.1 s High [facility] Manufact[employer] Inventory Glucose,Whole Bloodon 2023 Glucose [Mass/Vol] 155 mg/dL High 75-110 [facility] Glucose [Mass/Vol] 190 mg/dL High 75-110 [facility] Glucose [Mass/Vol] 176 mg/dL High 75-110 [facility] Glucose [Mass/Vol] 119 mg/dL High 75-110 [facility] POC Glucose Fingerstickon Glucose [Mass/Vol] 155 mg/dL High 75 - 110 mg/dL [facility] Manufact[employer]' Inventory Interpretation and review of laboratory results Abnormal [facility] Glucose [Mass/Vol] 190 mg/dL High 75 - 110 mg/dL [facility] Interpretation and review of laboratory results Abnormal [facility] Glucose [Mass/Vol] 176 mg/dL High 75 - 110 mg/dL [facility] Interpretation and review of laboratory results Abnormal [facility] Glucose [Mass/Vol] 119 mg/dL High 75 - 110 mg/dL [facility] Interpretation and review of laboratory results Abnormal [email or web address] [email or web address] PTon 12-06-2023 INR Coag (PPP) [Relative time] 2.7 {INR} Normal [facility] Comment on above: Result Comment: Therapeutic Range: Moderate Anticoagulant Intensity: INR = 2.0-3.0 High Anticoagulant Intensity: INR = 2.5-3.5 Performed By: #### P HO, CDP, RA, PT, SED, BMPX, FREDA, MG, LD, CRP, FEBC, B12FOL, PTT, C4, CCPAB, FERI, IOCAL, CORTI, CK, C3, REJEC #### [employer] [address] [place] [address] Yardage Control Clerk: Jasbir Montalvo MD PT Coag (PPP) [Time] 28.0 s High 11.7-14.9 [facility] Comment on above: Performed By: #### P HO, CDP, RA, PT, SED, BMPX, FREDA, MG, LD, CRP, FEBC, B12FOL, PTT, C4, CCPAB, FERI, IOCAL, CORTI, CK, C3, REJEC #### [employer] [facility] [employer] [id number] [place] [address] Yardage Control Clerk: Jasbir Montalvo MD Protime-INRon 12-06-2023 INR Coag (PPP) [Relative time] 2.7 {INR} [facility] Comment on above: Therapeutic Range: Moderate Anticoagulant Intensity: INR = 2.0-3.0 High Anticoagulant Intensity: INR = 2.5-3.5 Interpretation and review of laboratory results Abnormal [facility] PT Coag (PPP) [Time] 28.0 s High [facility] XR FOOT RIGHT (2 VIEWS)on XR FOOT [...] Christian Baldwin MD 12/06/23 Final result Normal [facility] XR Foot - right 2 Viewson 1. No fracture or dislocation. 2. Mild osteoarthritic changes. 3. Diffuse soft tissue swelling. [facility] EXAMINATION: TWO XRAY VIEWS OF THE [...] diffuse soft tissue swelling of the foot. [facility] Christian Baldwin MD - 12/06/2023 EXAMINATION: [...] osteoarthritic changes. 3. Diffuse soft tissue swelling. [facility] XR Foot - right 2 ViewsOrder ed By: Christian Baldwin on 12-06-2023 [facility] Work Phone: Glucose,Whole Bloodon 2023 Glucose [Mass/Vol] 160 mg/dL High 75-110 [facility] Glucose [Mass/Vol] 137 mg/dL High 75-110 [facility] Glucose [Mass/Vol] 189 mg/dL High 75-110 [facility] Glucose [Mass/Vol] 131 mg/dL High 75-110 [facility] Hemoglobin and Hematocriton 12-05-2023 Hematocrit (Bld) [Volume fraction] 42.9 % 40.7 - 50.3 % [facility] Hemoglobin (Bld) [Mass/Vol] 13.1 g/dL 13.0 - 17.0 g/dL [facility] Hgb/Hcton 12-05-2023 Hematocrit (Bld) [Volume fraction] 42.9 % Normal 40.7-50.3 [facility] Comment on above: Performed By: #### P HO, CDP, RA, PT, SED, BMPX, FREDA, MG, LD, CRP, FEBC, B12FOL, PTT, C4, CCPAB, FERI, IOCAL, CORTI, CK, C3, REJEC #### [facility] Hospital[facility] [address] [place] [id number] Yardage Control Clerk: Jasbir Montalvo MD Hemoglobin (Bld) [Mass/Vol] 13.1 g/dL Normal 13.0-17.0 [facility] Comment on above: Performed By: #### P HO, CDP, RA, PT, SED, BMPX, FREDA, MG, LD, CRP, FEBC, B12FOL, PTT, C4, CCPAB, FERI, IOCAL, CORTI, CK, C3, REJEC #### [facility] Hospital[facility] [address] [place] [address] Yardage Control Clerk: Jasbir Montalvo MD No Panel Informationon 12-04 [facility] POC Glucose Fingerstickon Glucose [Mass/Vol] 160 mg/dL High 75 - 110 mg/dL [facility] Interpretation and review of laboratory results Abnormal [facility] Glucose [Mass/Vol] 137 mg/dL High 75 - 110 mg/dL [facility] Interpretation and review of laboratory results Abnormal [facility] Glucose [Mass/Vol] 189 mg/dL High 75 - 110 mg/dL [facility] Interpretation and review of laboratory results Abnormal [facility] Glucose [Mass/Vol] 131 mg/dL High 75 - 110 mg/dL [facility] Interpretation and review of laboratory results Abnormal [facility] PTon 12-05-2023 INR Coag (PPP) [Relative time] 2.6 {INR} Normal [facility] Comment on above: Result Comment: Therapeutic Range: Moderate Anticoagulant Intensity: INR = 2.0-3.0 High Anticoagulant Intensity: INR = 2.5-3.5 Performed By: #### P HO, CDP, RA, PT, SED, BMPX, FREDA, MG, LD, CRP, FEBC, B12FOL, PTT, C4, CCPAB, FERI, IOCAL, CORTI, CK, C3, REJEC #### [employer] [address] [place] [id number] Yard[employer] Clerk: Jasbir Montalvo MD PT Coag (PPP) [Time] 26.8 s High 11.7-14.9 [facility] Comment on above: Performed By: #### P HO, CDP, RA, PT, SED, BMPX, FREDA, MG, LD, CRP, FEBC, B12FOL, PTT, C4, CCPAB, FERI, IOCAL, CORTI, CK, C3, REJEC #### [employer] [address] [place] [address] [id number] Yardage Control Clerk: Jasbir Montalvo MD Platelet Counton 12-05-2023 Platelets (Bld) [#/Vol] 194 10*3/uL Normal 138-453 [facility] Comment on above: Performed By: #### P HO, CDP, RA, PT, SED, BMPX, FREDA, MG, LD, CRP, FEBC, B12FOL, PTT, C4, CCPAB, FERI, IOCAL, CORTI, CK, C3, REJEC #### [employer] [address] [place] [phone] Yardage Control Clerk: Jasbir Montalvo MD Platelets (Bld) [#/Vol] 194 10*3/uL [facility] [employer] Inventory Protime-INRon 12-05-2023 INR Coag (PPP) [Relative time] 2.6 {INR} [facility] Comment on above: Therapeutic Range: Moderate Anticoagulant Intensity: INR = 2.0-3.0 High Anticoagulant Intensity: INR = 2.5-3.5 Interpretation and review of laboratory results Abnormal [facility] PT Coag (PPP) [Time] 26.8 s High Oh [employer] [facility] X[facility] Foot - right 2 [employer]son Radiology Study observation (narrative) [facility] [employer] Glucose,Whole Bloodon 2023 Glucose [Mass/Vol] 181 mg/dL High 75-110 [facility] Glucose [Mass/Vol] 194 mg/dL High 75-110 [facility] Glucose [Mass/Vol] 184 mg/dL High 75-110 [facility] Glucose [Mass/Vol] 120 mg/dL High 75-110 [facility] Glucose [Mass/Vol] 161 mg/dL High 75-110 [facility] POC Glucose Fingerstickon Glucose [Mass/Vol] 181 mg/dL High 75 - 110 mg/dL [facility] Interpretation and review of laboratory results Abnormal [facility] Glucose [Mass/Vol] 194 mg/dL High 75 - 110 mg/dL [facility] Interpretation and review of laboratory results Abnormal [facility] Glucose [Mass/Vol] 184 mg/dL High 75 - 110 mg/dL [facility] Interpretation and review of laboratory results Abnormal [facility] Glucose [Mass/Vol] 120 mg/dL High 75 - 110 mg/dL [facility] [employer] Interpretation and review of laboratory results Abnormal [facility] Glucose [Mass/Vol] 161 mg/dL High 75 - 110 mg/dL [facility] Interpretation and review of laboratory results Abnormal [facility] PTon 12-04-2023 INR Coag (PPP) [Relative time] 3.0 {INR} Normal [facility] Comment on above: Result Comment: Therapeutic Range: Moderate Anticoagulant Intensity: INR = 2.0-3.0 High Anticoagulant Intensity: INR = 2.5-3.5 Performed By: #### P JULIAN, LEEANNA, RA, PT, SED, BMPX, FREDA, MG, LD, CRP, FEBC, B12FOL, PTT, C4, CCPAB, FERI, IOCAL, CORTI, CK, C3, REJEC #### [employer] [facility] [place] [address] Yardage Control Clerk: Jasbir Montalvo MD PT Coag (PPP) [Time] 30.5 s High 11.7-14.9 [facility] Comment on above: Performed By: #### P HO, CDP, RA, PT, SED, BMPX, FREDA, MG, LD, CRP, FEBC, B12FOL, PTT, C4, CCPAB, FERI, IOCAL, CORTI, CK, C3, REJEC #### [employer] [facility] [place] [address] Yardage Control Clerk: Jasbir Montalvo MD Protime-INRon 12-04-2023 INR Coag (PPP) [Relative time] 3.0 {INR} [employer] Comment on above: Therapeutic Range: Moderate Anticoagulant Intensity: INR = 2.0-3.0 High Anticoagulant Intensity: INR = 2.5-3.5 Interpretation and review of laboratory results Abnormal [employer] PT Coag (PPP) [Time] 30.5 s High [employer] EKG 12 LeadOrdered By: Cesar Jean on 12-03-2023 Atrial Rate 67 BPM [employer] Work Phone: P [place] 78 degrees [employer] Work Phone: P-R Interval 148 ms [employer] Work Phone: Q-T Interval 404 ms [employer] Work Phone: QRS Duration 70 ms [employer] Work Phone: QTc Calculation (Bazett) 426 ms [employer] Work Phone: R [place] -47 degrees [employer] Work Phone: T [place] 100 degrees [facility] Work Phone: Ventricular Rate 67 BPM [facility] [employer] Work Phone: [facility] Work Phone: EKG 12 Leadon 12-03-2023 Normal sinus rhythm Left axis deviation Inferior infarct , 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 , age undetermined Abnormal ECG No previous ECGs available [facility] ST[facility] Nixon MD - 12/03/2023 Normal sinus rhythm Left axis deviation Inferior infarct , 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 , age undetermined Abnormal ECG No previous ECGs available [facility] Atrial Rate 66 BPM [facility] P [place] 111 degrees [facility] P-R Interval 128 ms [facility] Q-T Interval 440 ms [facility] [employer] [facility] QRS Duration 94 ms [email or web address] QTc Calculation (Bazett) 461 ms [facility] R [place] -48 degrees [facility] T [place] 12 degrees [facility] Ventricular Rate 66 BPM [facility] [employer] Normal sinus rhythm Left anterior fascicular block Anterolateral infarct (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) Abnormal ECG When compared with ECG of 01-DEC-2023 15:42, QRS duration has increased ST no longer depressed in Anterolateral leads [facility] STLori Nixon MD - 12/03/2023 Normal sinus rhythm Left anterior fascicular block Anterolateral infarct (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) Abnormal ECG When compared with ECG of 01-DEC-2023 15:42, QRS duration has increased ST no longer depressed in Anterolateral leads [facility] Glucose,Whole Bloodon 2023 Glucose [Mass/Vol] 232 mg/dL High 75-110 [facility] Glucose [Mass/Vol] 174 mg/dL High 75-110 [facility] Glucose [Mass/Vol] 176 mg/dL High 75-110 [facility] Glucose [Mass/Vol] 83 mg/dL Normal 75-110 [facility] POC Glucose Fingerstickon Glucose [Mass/Vol] 232 mg/dL High 75 - 110 mg/dL [facility] Interpretation and review of laboratory results Abnormal [facility] Glucose [Mass/Vol] 174 mg/dL High 75 - 110 mg/dL [facility] Interpretation and review of laboratory results Abnormal [facility] Glucose [Mass/Vol] 176 mg/dL High 75 - 110 mg/dL [facility] Interpretation and review of laboratory results Abnormal [facility] Glucose [Mass/Vol] 83 mg/dL 75 - 110 mg/dL [facility] PTon 12-03-2023 INR Coag (PPP) [Relative time] 3.3 {INR} Normal [facility] Comment on above: Result Comment: Therapeutic Range: Moderate Anticoagulant Intensity: INR = 2.0-3.0 High Anticoagulant Intensity: INR = 2.5-3.5 Performed By: #### P HO, CDP, RA, PT, SED, BMPX, FREDA, MG, LD, CRP, FEBC, B12FOL, PTT, C4, CCPAB, FERI, IOCAL, CORTI, CK, C3, REJEC #### [employer] [address] [place] [id number] Yardage Control Clerk: Jasbir Montalvo MD PT Coag (PPP) [Time] 32.2 s High 11.7-14.9 [facility] Comment on above: Performed By: #### P HO, CDP, RA, PT, SED, BMPX, FREDA, MG, LD, CRP, FEBC, B12FOL, PTT, C4, CCPAB, FERI, IOCAL, CORTI, CK, C3, REJEC #### [employer] [address] [place], [place] [id number] Yardage Control Clerk: Jasbir Montalvo MD Protime-INRon 12-03-2023 INR Coag (PPP) [Relative time] 3.3 {INR} [facility] Comment on above: Therapeutic Range: Moderate Anticoagulant Intensity: INR = 2.0-3.0 High Anticoagulant Intensity: INR = 2.5-3.5 Interpretation and review of laboratory results Abnormal [facility] PT Coag (PPP) [Time] 32.2 s High [facility] Basic Metab w/rfx MGon 12-02 Anion gap [Moles/Vol] 9 mmol/L Normal 9-17 [facility] Comment on above: Performed By: #### P HO, CDP, RA, PT, SED, BMPX, FREDA, MG, LD, CRP, FEBC, B12FOL, PTT, C4, CCPAB, FERI, IOCAL, CORTI, CK, C3, REJEC #### [facility] [employer] [address] [place] [id number] Yardage Control Clerk: Jasbir Montalvo MD Calcium [Mass/Vol] 8.8 mg/dL Normal 8.6-10.4 [facility] Comment on above: Performed By: #### P HO, CDP, RA, PT, SED, BMPX, FREDA, MG, LD, CRP, FEBC, B12FOL, PTT, C4, CCPAB, FERI, IOCAL, CORTI, CK, C3, REJEC #### [address] [address] Yardage Control Clerk: Jasbir Montalvo MD Chloride [Moles/Vol] 109 mmol/L High 98-107 [facility] Comment on above: Performed By: #### P HO, CDP, RA, PT, SED, BMPX, FREDA, MG, LD, CRP, FEBC, B12FOL, PTT, C4, CCPAB, FERI, IOCAL, CORTI, CK, C3, REJEC #### [facility] [employer] [address] [place] [address] Yardage Control Clerk: Jasbir Montalvo MD CO2 [Moles/Vol] 22 mmol/L Normal 20-31 [facility] Comment on above: Performed By: #### P HO, CDP, RA, PT, SED, BMPX, FREDA, MG, LD, CRP, FEBC, B12FOL, PTT, C4, CCPAB, FERI, IOCAL, CORTI, CK, C3, REJEC #### [facility] [employer] [address] [place] [address] Yardage Control Clerk: Jasbir Montalvo MD Creatinine [Mass/Vol] 1.5 mg/dL High 0.7-1.2 [facility] Comment on above: Performed By: #### P HO, CDP, RA, PT, SED, BMPX, FREDA, MG, LD, CRP, FEBC, B12FOL, PTT, C4, CCPAB, FERI, IOCAL, CORTI, CK, C3, REJEC #### [facility] [employer] [address] [place] [address] Yardage Control Clerk: Jasbir Montalvo MD GFR/1.73 sq M.predicted among non-blacks MDRD (S/P/Bld) [Vol rate/Area] 52 mL/min/{1.73_m2} Low >60 [facility] Comment on above: Result Comment: [...] FERI, IOCAL, CORTI, CK, C3, REJEC #### [facility] [employer] [address] [place] [address] Yardage Control Clerk: Jasbir Montalvo MD Glucose [Mass/Vol] 165 mg/dL High 70-99 [facility] Comment on above: Performed By: #### P HO, CDP, RA, PT, SED, BMPX, FREDA, MG, LD, CRP, FEBC, B12FOL, PTT, C4, CCPAB, FERI, IOCAL, CORTI, CK, C3, REJEC #### [address] [address] Yardage Control Clerk: Jasbir Montalvo MD Potassium [Moles/Vol] 3.7 mmol/L Normal 3.7-5.3 [facility] Comment on above: Performed By: #### P HO, CDP, RA, PT, SED, BMPX, FREDA, MG, LD, CRP, FEBC, B12FOL, PTT, C4, CCPAB, FERI, IOCAL, CORTI, CK, C3, REJEC #### [address] [address] Yardage Control Clerk: Jasbir Montalvo MD Sodium [Moles/Vol] 140 mmol/L Normal 135-144 [facility] Comment on above: Performed By: #### P HO, CDP, RA, PT, SED, BMPX, FREDA, MG, LD, CRP, FEBC, B12FOL, PTT, C4, CCPAB, FERI, IOCAL, CORTI, CK, C3, REJEC #### [address] [address] Yardage Control Clerk: Jasbir Montalvo MD Urea nitrogen [Mass/Vol] 36 mg/dL High 8-23 [facility] Comment on above: Performed By: #### P HO, CDP, RA, PT, SED, BMPX, FREDA, MG, LD, CRP, FEBC, B12FOL, PTT, C4, CCPAB, FERI, IOCAL, CORTI, CK, C3, REJEC #### [address] [address] Yardage Control Clerk: Jasbir Montalvo MD Basic Metabolic Panel w/ Ref sarah to MGon 12-02-2023 Anion gap [Moles/Vol] 9 mmol/L 9 - 17 mmol/L [facility] Calcium [Mass/Vol] 8.8 mg/dL 8.6 - 10. 4 mg/dL [facility] Chloride [Moles/Vol] 109 mmol/L High 98 - 107 mmol/L [facility] CO2 [Moles/Vol] 22 mmol/L 20 - 31 mmol/L [facility] Creatinine [Mass/Vol] 1.5 mg/dL High 0.7 - 1.2 mg/dL [facility] GFR/1.73 sq M.predicted MDRD (S/P/Bld) [Vol rate/Area] 52 mL/min/{1.73_m2} Low - PINF [facility] Comment on above: These results are [...] 165 mg/dL High 70 - 99 mg/dL [facility] Interpretation and review of laboratory results Abnormal [facility] Potassium [Moles/Vol] 3.7 mmol/L 3.7 - 5.3 mmol/L [facility] Sodium [Moles/Vol] 140 mmol/L 135 - 144 mmol/L [facility] Urea nitrogen [Mass/Vol] 36 mg/dL High 8 - 23 mg/dL [facility] CBC with Auto Differentialon 12-02-2023 Basophils (Bld) [#/Vol] 0.08 10*3/uL [facility] Basophils/100 WBC (Bld) 1 % 0 - 2 % [facility] Eosinophils (Bld) [#/Vol] 0.43 10*3/uL [facility] Eosinophils/100 WBC (Bld) 4 % 1 - 4 % [facility] Erythrocyte distribution width (RBC) [Ratio] 14.2 % 11.8 - 14.4 % [facility] Hematocrit (Bld) [Volume fraction] 46.4 % 40.7 - 50.3 % [facility] Hemoglobin (Bld) [Mass/Vol] 14.4 g/dL 13.0 - 17.0 g/dL [facility] Immature granulocytes (Bld) [#/Vol] 0.03 10*3/uL [facility] Immature granulocytes/100 WBC (Bld) 0 % 0 [facility] Lymphocytes/100 WBC (Bld) 29 % 24 - 43 % [facility] Lymphocytes/100 WBC (Bld) 3.23 % [facility] MCH (RBC) [Entitic mass] 31.2 pg 25.2 - 33.5 pg [facility] MCHC (RBC) [Mass/Vol] 31.0 g/dL 28.4 - 34.8 g/dL [facility] MCV (RBC) [Entitic vol] 100.7 fL 82.6 - 102.9 fL [facility] Monocytes/100 WBC (Bld) 8 % 3 - 12 % [facility] Monocytes/100 WBC (Bld) 0.93 % [facility] Neutrophils/100 WBC (Bld) 58 % 36 - 65 % [facility] Nucleated RBC/100 WBC (Bld) [Ratio] 0.0 % 0.0 per 100 WBC [facility] Platelet mean volume (Bld) [Entitic vol] 10.3 fL 8.1 - 13.5 fL [facility] Platelets (Bld) [#/Vol] 230 10*3/uL [facility] RBC (Bld) [#/Vol] 4.61 10*6/uL 4.21 - 5.7 7 m/uL [facility] Segmented neutrophils/100 WBC (Bld) 6.39 % [facility] WBC other (Bld) [#/Vol] 11.1 [facility] CBC with Diffon 12-02-2023 Abs. Basophil 0.08 k/uL Normal 0.00-0.20 [facility] Comment on above: Performed By: #### P HO, CDP, RA, PT, SED, BMPX, FREDA, MG, LD, CRP, FEBC, B12FOL, PTT, C4, CCPAB, FERI, IOCAL, CORTI, CK, C3, REJEC #### [facility] [address] Yardage Control Clerk: Jasbir Montalvo MD Abs.Imm.Granulocyte 0.03 k/uL Normal 0.00-0.30 [facility] Comment on above: Performed By: #### P HO, CDP, RA, PT, SED, BMPX, FREDA, MG, LD, CRP, FEBC, B12FOL, PTT, C4, CCPAB, FERI, IOCAL, CORTI, CK, C3, REJEC #### [address] [id number] [employer] Clerk: Jasbir Montalvo MD Abs.Neutrophil (Seg) 6.39 k/uL Normal 1.50-8.10 [facility] Comment on above: Performed By: #### P HO, CDP, RA, PT, SED, BMPX, FREDA, MG, LD, CRP, FEBC, B12FOL, PTT, C4, CCPAB, FERI, IOCAL, CORTI, CK, C3, REJEC #### [address] [address] Yardage Control Clerk: Jasbir Montalvo MD Basophils/100 WBC (Bld) 1 % Normal 0-2 [facility] Comment on above: Performed By: #### P HO, CDP, RA, PT, SED, BMPX, FREDA, MG, LD, CRP, FEBC, B12FOL, PTT, C4, CCPAB, FERI, IOCAL, CORTI, CK, C3, REJEC #### [address] [id number] [employer] Clerk: Jasbir Montalvo MD Eosinophils (Bld) [#/Vol] 0.43 10*3/uL Normal 0.00-0.44 [facility] Comment on above: Performed By: #### P HO, CDP, RA, PT, SED, BMPX, FREDA, MG, LD, CRP, FEBC, B12FOL, PTT, C4, CCPAB, FERI, IOCAL, CORTI, CK, C3, REJEC #### [address] [id number] [employer] Clerk: Jasbir Montalvo MD Eosinophils/100 WBC (Bld) 4 % Normal 1-4 [facility] Comment on above: Performed By: #### P HO, CDP, RA, PT, SED, BMPX, FREDA, MG, LD, CRP, FEBC, B12FOL, PTT, C4, CCPAB, FERI, IOCAL, CORTI, CK, C3, REJEC #### [address] [id number] [employer] Clerk: Jasbir Montalvo MD Erythrocyte distribution width (RBC) [Ratio] 14.2 % Normal 11.8-14.4 [facility] Comment on above: Performed By: #### P HO, CDP, RA, PT, SED, BMPX, FREDA, MG, LD, CRP, FEBC, B12FOL, PTT, C4, CCPAB, FERI, IOCAL, CORTI, CK, C3, REJEC #### [address] [address] [employer] Control Clerk: Jasbir Montalvo MD Hematocrit (Bld) [Volume fraction] 46.4 % Normal 40.7-50.3 [facility] Comment on above: Performed By: #### P HO, CDP, RA, PT, SED, BMPX, FREDA, MG, LD, CRP, FEBC, B12FOL, PTT, C4, CCPAB, FERI, IOCAL, CORTI, CK, C3, REJEC #### [address] [address] [employer] Control Clerk: Jasbir Montalvo MD Hemoglobin (Bld) [Mass/Vol] 14.4 g/dL Normal 13.0-17.0 [facility] Comment on above: Performed By: #### P HO, CDP, RA, PT, SED, BMPX, FREDA, MG, LD, CRP, FEBC, B12FOL, PTT, C4, CCPAB, FERI, IOCAL, CORTI, CK, C3, REJEC #### [address] [id number] [employer] Clerk: Jasbir Montalvo MD Immature granulocytes/100 WBC (Bld) 0 % Normal 0 [facility] Comment on above: Performed By: #### P HO, CDP, RA, PT, SED, BMPX, FREDA, MG, LD, CRP, FEBC, B12FOL, PTT, C4, CCPAB, FERI, IOCAL, CORTI, CK, C3, REJEC #### [address] [id number] [employer] Clerk: Jasbir Montalvo MD Lymphocytes (Bld) [#/Vol] 3.23 10*3/uL Normal 1.10-3.70 [facility] Comment on above: Performed By: #### P HO, CDP, RA, PT, SED, BMPX, FREDA, MG, LD, CRP, FEBC, B12FOL, PTT, C4, CCPAB, FERI, IOCAL, CORTI, CK, C3, REJEC #### [address] [address] [employer] Control Clerk: Jasbir Montalvo MD Lymphocytes/100 WBC (Bld) 29 % Normal 24-43 [facility] Comment on above: Performed By: #### P HO, CDP, RA, PT, SED, BMPX, FREDA, MG, LD, CRP, FEBC, B12FOL, PTT, C4, CCPAB, FERI, IOCAL, CORTI, CK, C3, REJEC #### [address] [id number] [employer] Clerk: Jasbir Montalvo MD MCH (RBC) [Entitic mass] 31.2 pg Normal 25.2-33.5 [facility] Comment on above: Performed By: #### P HO, CDP, RA, PT, SED, BMPX, FREDA, MG, LD, CRP, FEBC, B12FOL, PTT, C4, CCPAB, FERI, IOCAL, CORTI, CK, C3, REJEC #### [address] [phone] [employer] Clerk: Jasbir Montalvo MD MCHC (RBC) [Mass/Vol] 31.0 g/dL Normal 28.4-34.8 [facility] Comment on above: Performed By: #### P HO, CDP, RA, PT, SED, BMPX, FREDA, MG, LD, CRP, FEBC, B12FOL, PTT, C4, CCPAB, FERI, IOCAL, CORTI, CK, C3, REJEC #### [address] [id number] [employer] Clerk: Jasbir Montalvo MD MCV (RBC) [Entitic vol] 100.7 fL Normal 82.6-102.9 [facility] Comment on above: Performed By: #### P HO, CDP, RA, PT, SED, BMPX, FREDA, MG, LD, CRP, FEBC, B12FOL, PTT, C4, CCPAB, FERI, IOCAL, CORTI, CK, C3, REJEC #### [address] [id number] [employer] Clerk: Jasbir Montalvo MD Monocytes (Bld) [#/Vol] 0.93 10*3/uL Normal 0.10-1.20 [facility] Comment on above: Performed By: #### P HO, CDP, RA, PT, SED, BMPX, FREDA, MG, LD, CRP, FEBC, B12FOL, PTT, C4, CCPAB, FERI, IOCAL, CORTI, CK, C3, REJEC #### [address] [address] [employer] Control Clerk: Jasbir Montalvo MD Monocytes/100 WBC (Bld) 8 % Normal 3-12 [facility] Comment on above: Performed By: #### P HO, CDP, RA, PT, SED, BMPX, FREDA, MG, LD, CRP, FEBC, B12FOL, PTT, C4, CCPAB, FERI, IOCAL, CORTI, CK, C3, REJEC #### [address] [address] [employer] Clerk: Jasbir Montalvo MD Neutrophil (Seg) 58 % Normal 36-65 [facility] Comment on above: Performed By: #### P HO, CDP, RA, PT, SED, BMPX, FREDA, MG, LD, CRP, FEBC, B12FOL, PTT, C4, CCPAB, FERI, IOCAL, CORTI, CK, C3, REJEC #### [address] [id number] [employer] Clerk: Jasbir Montalvo MD NRBC Automated 0.0 per 100 WBC Normal 0.0 [facility] Comment on above: Performed By: #### P HO, CDP, RA, PT, SED, BMPX, FREDA, MG, LD, CRP, FEBC, B12FOL, PTT, C4, CCPAB, FERI, IOCAL, CORTI, CK, C3, REJEC #### [address] [id number] [employer] Clerk: Jasbir Montalvo MD Platelet mean volume (Bld) [Entitic vol] 10.3 fL Normal 8.1-13.5 [facility] Comment on above: Performed By: #### P HO, CDP, RA, PT, SED, BMPX, FREDA, MG, LD, CRP, FEBC, B12FOL, PTT, C4, CCPAB, FERI, IOCAL, CORTI, CK, C3, REJEC #### [address] [id number] [employer] Clerk: Jasbir Montalvo MD Platelets (Bld) [#/Vol] 230 10*3/uL Normal 138-453 [facility] Comment on above: Performed By: #### P HO, CDP, RA, PT, SED, BMPX, FREDA, MG, LD, CRP, FEBC, B12FOL, PTT, C4, CCPAB, FERI, IOCAL, CORTI, CK, C3, REJEC #### [address] [id number] [employer] Clerk: Jasbir Montalvo MD RBC (Bld) [#/Vol] 4.61 10*6/uL Normal 4.21-5.77 [facility] Comment on above: Performed By: #### P HO, CDP, RA, PT, SED, BMPX, FREDA, MG, LD, CRP, FEBC, B12FOL, PTT, C4, CCPAB, FERI, IOCAL, CORTI, CK, C3, REJEC #### [address] [id number] [employer] Clerk: Jasbir Montalvo MD WBC (Bld) [#/Vol] 11.1 10*3/uL Normal 3.5-11.3 [facility] Comment on above: Performed By: #### P HO, CDP, RA, PT, SED, BMPX, FREDA, MG, LD, CRP, FEBC, B12FOL, PTT, C4, CCPAB, FERI, IOCAL, CORTI, CK, C3, REJEC #### [address] [address] [employer] Clerk: Jasbir Montalvo MD EEGon 12-02-2023 Ayo Torres [...] tablet 90 mg 90 mg Oral Daily Jmaia Nur MD 90 mg at 12/01/23 1042 [...] to moderate encephalopathy . Ayo Torres MD [facility] EEGOrdered By: Ayo Torres on 12-02-2023 [facility] Work Phone: Glucose,Whole Bloodon 2023 Glucose [Mass/Vol] 179 mg/dL High 75-110 [facility] Glucose [Mass/Vol] 169 mg/dL High 75-110 [facility] Glucose [Mass/Vol] 172 mg/dL High 75-110 [facility] Glucose [Mass/Vol] 117 mg/dL High 75-110 [facility] POC Glucose Fingerstickon Glucose [Mass/Vol] 179 mg/dL High 75 - 110 mg/dL [facility] Interpretation and review of laboratory results Abnormal [facility] Glucose [Mass/Vol] 169 mg/dL High 75 - 110 mg/dL [facility] Interpretation and review of laboratory results Abnormal [facility] Glucose [Mass/Vol] 172 mg/dL High 75 - 110 mg/dL [facility] Interpretation and review of laboratory results Abnormal [facility] Glucose [Mass/Vol] 117 mg/dL High 75 - 110 mg/dL [facility] Interpretation and review of laboratory results Abnormal [facility] PTon 12-02-2023 INR Coag (PPP) [Relative time] 2.8 {INR} Normal [facility] Comment on above: Result Comment: Therapeutic Range: Moderate Anticoagulant Intensity: INR = 2.0-3.0 High Anticoagulant Intensity: INR = 2.5-3.5 Performed By: #### P HO, CDP, RA, PT, SED, BMPX, FREDA, MG, LD, CRP, FEBC, B12FOL, PTT, C4, CCPAB, FERI, IOCAL, CORTI, CK, C3, REJEC #### [facility] [employer] [address] [place] [id number] Yardage Control Clerk: Jasbir Montalvo MD PT Coag (PPP) [Time] 28.9 s High 11.7-14.9 [facility] Comment on above: Performed By: #### P HO, CDP, RA, PT, SED, BMPX, FREDA, MG, LD, CRP, FEBC, B12FOL, PTT, C4, CCPAB, FERI, IOCAL, CORTI, CK, C3, REJEC #### [employer] [facility] [place] [address] Yardage Control Clerk: Jasbir Montalvo MD Protime-INRon 12-02-2023 INR Coag (PPP) [Relative time] 2.8 {INR} [facility] Comment on above: Therapeutic Range: Moderate Anticoagulant Intensity: INR = 2.0-3.0 High Anticoagulant Intensity: INR = 2.5-3.5 Interpretation and review of laboratory results Abnormal [facility] PT Coag (PPP) [Time] 28.9 s High [facility] Aldolaseon 12-01-2023 Aldolase 6.9 U/L Normal 1.2-7.6 [facility] Comment on above: Result Comment: (NOT E) This specimen is Hemolyzed. This may cause the results to be falsely increased. REFERENCE INTERVAL: Aldolase Access complete set of age- and/or gender-specific reference intervals for this test in the [facility] Test Directory ([employer] ([place])). Performed By: [facility] [address] [place] [id number] Welding Machine Operator Electroslag: Uriah Prasad MD, PhD CLIA Number: [id number] Performed By: #### P HO, CDP, RA, PT, SED, BMPX, FREDA, MG, LD, CRP, FEBC, B12FOL, PTT, C4, CCPAB, FERI, IOCAL, CORTI, CK, C3, REJEC #### [employer] [facility] [place] [address] Yardage Control Clerk: Jasbir Montalvo MD Aldolase [Catalytic activity/Vol] 6.9 mU/mL 1.2 - 7.6 U/L [facility] Comment on above: (NOTE) This specimen is Hemolyzed. This may cause the results to be falsely increased. REFERENCE INTERVAL: Aldolase Access complete set of age- and/or gender-specific reference intervals for this test in the [facility] Test Directory ([employer] ([employer])). Performed By: [facility] [address] [place] [id number] Welding Machine Operator Electroslag: Uriah Prasad MD, PhD CLIA Number: [id number] [facility] Anti CCPon 12-01-2023 Anti CCP 1.5 U/mL Normal 0.0-7.0 [facility] Comment on above: Result Comment: Reference Range: <7.0 Negative 7.0-10.0 Equivocal >10.0 Positive Performed By: #### P HO, CDP, RA, PT, SED, BMPX, FREDA, MG, LD, CRP, FEBC, B12FOL, PTT, C4, CCPAB, FERI, IOCAL, CORTI, CK, C3, REJEC #### [place] [phone] Yardage Control Clerk: Jasbir Montalvo MD Basic Metab w/rfx MGon 12-01 Anion gap [Moles/Vol] 10 mmol/L Normal 9-17 [facility] Comment on above: Performed By: #### P HO, CDP, RA, PT, SED, BMPX, FREDA, MG, LD, CRP, FEBC, B12FOL, PTT, C4, CCPAB, FERI, IOCAL, CORTI, CK, C3, REJEC #### [address] [address] Yardage Control Clerk: Jasbir Montalvo MD Calcium [Mass/Vol] 8.9 mg/dL Normal 8.6-10.4 [facility] Comment on above: Performed By: #### P HO, CDP, RA, PT, SED, BMPX, FREDA, MG, LD, CRP, FEBC, B12FOL, PTT, C4, CCPAB, FERI, IOCAL, CORTI, CK, C3, REJEC #### [address] [phone] Yardage Control Clerk: Jasbir Montalvo MD Chloride [Moles/Vol] 108 mmol/L High 98-107 [facility] Comment on above: Performed By: #### P HO, CDP, RA, PT, SED, BMPX, FREDA, MG, LD, CRP, FEBC, B12FOL, PTT, C4, CCPAB, FERI, IOCAL, CORTI, CK, C3, REJEC #### [employer] [facility] [place], [place] [phone] Yardage Control Clerk: Jasbir Montalvo MD CO2 [Moles/Vol] 22 mmol/L Normal 20-31 [facility] Comment on above: Performed By: #### P HO, CDP, RA, PT, SED, BMPX, FREDA, MG, LD, CRP, FEBC, B12FOL, PTT, C4, CCPAB, FERI, IOCAL, CORTI, CK, C3, REJEC #### [facility] [employer] [address] [place] [address] [phone] Yardage Control Clerk: Jasbir Montalvo MD Creatinine [Mass/Vol] 1.6 mg/dL High 0.7-1.2 [facility] Comment on above: Performed By: #### P HO, CDP, RA, PT, SED, BMPX, FREDA, MG, LD, CRP, FEBC, B12FOL, PTT, C4, CCPAB, FERI, IOCAL, CORTI, CK, C3, REJEC #### [facility] [employer] [address] [place] [address] [phone] Yardage Control Clerk: Jasbir Montalvo MD GFR/1.73 sq M.predicted among non-blacks MDRD (S/P/Bld) [Vol rate/Area] 48 mL/min/{1.73_m2} Low >60 [facility] Comment on above: Result Comment: [...] FERI, IOCAL, CORTI, CK, C3, REJEC #### [address] [address] Yardage Control Clerk: Jasbir Montalvo MD Glucose [Mass/Vol] 144 mg/dL High 70-99 [facility] Comment on above: Performed By: #### P HO, CDP, RA, PT, SED, BMPX, FREDA, MG, LD, CRP, FEBC, B12FOL, PTT, C4, CCPAB, FERI, IOCAL, CORTI, CK, C3, REJEC #### [address] [address] Yardage Control Clerk: Jasbir Montalvo MD Potassium [Moles/Vol] 3.8 mmol/L Normal 3.7-5.3 [facility] Comment on above: Performed By: #### P HO, CDP, RA, PT, SED, BMPX, FREDA, MG, LD, CRP, FEBC, B12FOL, PTT, C4, CCPAB, FERI, IOCAL, CORTI, CK, C3, REJEC #### [address] [address] Yardage Control Clerk: Jasbir Montalvo MD Sodium [Moles/Vol] 140 mmol/L Normal 135-144 [facility] Comment on above: Performed By: #### P HO, CDP, RA, PT, SED, BMPX, FREDA, MG, LD, CRP, FEBC, B12FOL, PTT, C4, CCPAB, FERI, IOCAL, CORTI, CK, C3, REJEC #### [address] [address] Yardage Control Clerk: Jasbir Montalvo MD Urea nitrogen [Mass/Vol] 39 mg/dL High 8-23 [facility] Comment on above: Performed By: #### P HO, CDP, RA, PT, SED, BMPX, FREDA, MG, LD, CRP, FEBC, B12FOL, PTT, C4, CCPAB, FERI, IOCAL, CORTI, CK, C3, REJEC #### [facility] [address] [phone] Yardage Control Clerk: Jasbir Montalvo MD Basic Metabolic Panel w/ Ref sarah to MGon 12-01-2023 Anion gap [Moles/Vol] 10 mmol/L 9 - 17 mmol/L [facility] Calcium [Mass/Vol] 8.9 mg/dL 8.6 - 10. 4 mg/dL [facility] Chloride [Moles/Vol] 108 mmol/L High 98 - 107 mmol/L [facility] CO2 [Moles/Vol] 22 mmol/L 20 - 31 mmol/L [facility] Creatinine [Mass/Vol] 1.6 mg/dL High 0.7 - 1.2 mg/dL [facility] GFR/1.73 sq M.predicted MDRD (S/P/Bld) [Vol rate/Area] 48 mL/min/{1.73_m2} Low - PINF [facility] Comment on above: These results are not [...] 144 mg/dL High 70 - 99 mg/dL [facility] [employer] Interpretation and review of laboratory results Abnormal [facility] Potassium [Moles/Vol] 3.8 mmol/L 3.7 - 5.3 mmol/L [facility] Sodium [Moles/Vol] 140 mmol/L 135 - 144 mmol/L [facility] Urea nitrogen [Mass/Vol] 39 mg/dL High 8 - 23 mg/dL [facility] CBC with Auto Differentialon 12-01-2023 Basophils (Bld) [#/Vol] 0.08 10*3/uL [facility] Basophils/100 WBC (Bld) 1 % 0 - 2 % [facility] Eosinophils (Bld) [#/Vol] 0.37 10*3/uL [facility] Eosinophils/100 WBC (Bld) 3 % 1 - 4 % [facility] Erythrocyte distribution width (RBC) [Ratio] 14.4 % 11.8 - 14.4 % [facility] Hematocrit (Bld) [Volume fraction] 46.3 % 40.7 - 50.3 % [facility] Hemoglobin (Bld) [Mass/Vol] 14.6 g/dL 13.0 - 17.0 g/dL [facility] Immature granulocytes (Bld) [#/Vol] 0.04 10*3/uL [facility] Immature granulocytes/100 WBC (Bld) 0 % 0 [facility] Lymphocytes/100 WBC (Bld) 25 % 24 - 43 % [facility] Lymphocytes/100 WBC (Bld) 2.76 % [facility] MCH (RBC) [Entitic mass] 31.2 pg 25.2 - 33.5 pg [facility] MCHC (RBC) [Mass/Vol] 31.5 g/dL 28.4 - 34.8 g/dL [facility] MCV (RBC) [Entitic vol] 98.9 fL 82.6 - 102.9 fL [facility] Monocytes/100 WBC (Bld) 8 % 3 - 12 % [facility] Monocytes/100 WBC (Bld) 0.82 % [facility] Neutrophils/100 WBC (Bld) 63 % 36 - 65 % [facility] Nucleated RBC/100 WBC (Bld) [Ratio] 0.0 % 0.0 per 100 WBC [facility] Platelet mean volume (Bld) [Entitic vol] 10.4 fL 8.1 - 13.5 fL [facility] Platelets (Bld) [#/Vol] 223 10*3/uL [facility] RBC (Bld) [#/Vol] 4.68 10*6/uL 4.21 - 5.7 7 m/uL [facility] Segmented neutrophils/100 WBC (Bld) 6.78 % [facility] WBC other (Bld) [#/Vol] 10.9 [facility] CBC with Diffon 12-01-2023 Abs. Basophil 0.08 k/uL Normal 0.00-0.20 [facility] Comment on above: Performed By: #### P HO, CDP, RA, PT, SED, BMPX, FREDA, MG, LD, CRP, FEBC, B12FOL, PTT, C4, CCPAB, FERI, IOCAL, CORTI, CK, C3, REJEC #### [address] [address] Yardage Control Clerk: Jasbir Montalvo MD Abs.Imm.Granulocyte 0.04 k/uL Normal 0.00-0.30 [facility] Comment on above: Performed By: #### P HO, CDP, RA, PT, SED, BMPX, FREDA, MG, LD, CRP, FEBC, B12FOL, PTT, C4, CCPAB, FERI, IOCAL, CORTI, CK, C3, REJEC #### [facility] [employer] [address] [place] [address] Yardage Control Clerk: Jasbir Montalvo MD Abs.Neutrophil (Seg) 6.78 k/uL Normal 1.50-8.10 [facility] Comment on above: Performed By: #### P HO, CDP, RA, PT, SED, BMPX, FREDA, MG, LD, CRP, FEBC, B12FOL, PTT, C4, CCPAB, FERI, IOCAL, CORTI, CK, C3, REJEC #### [facility] [employer] [address] [place], [place] [phone] Yardage Control Clerk: Jasbir Montalvo MD Basophils/100 WBC (Bld) 1 % Normal 0-2 [facility] Comment on above: Performed By: #### P HO, CDP, RA, PT, SED, BMPX, FREDA, MG, LD, CRP, FEBC, B12FOL, PTT, C4, CCPAB, FERI, IOCAL, CORTI, CK, C3, REJEC #### [address] [address] Yardage Control Clerk: Jasbir Montalvo MD Eosinophils (Bld) [#/Vol] 0.37 10*3/uL Normal 0.00-0.44 [facility] Comment on above: Performed By: #### P HO, CDP, RA, PT, SED, BMPX, FREDA, MG, LD, CRP, FEBC, B12FOL, PTT, C4, CCPAB, FERI, IOCAL, CORTI, CK, C3, REJEC #### [address] [address] Yardage Control Clerk: Jasbir Montalvo MD Eosinophils/100 WBC (Bld) 3 % Normal 1-4 [facility] Comment on above: Performed By: #### P HO, CDP, RA, PT, SED, BMPX, FREDA, MG, LD, CRP, FEBC, B12FOL, PTT, C4, CCPAB, FERI, IOCAL, CORTI, CK, C3, REJEC #### [address] [address] Yardage Control Clerk: Jasbir Montalvo MD Erythrocyte distribution width (RBC) [Ratio] 14.4 % Normal 11.8-14.4 [facility] Comment on above: Performed By: #### P HO, CDP, RA, PT, SED, BMPX, FREDA, MG, LD, CRP, FEBC, B12FOL, PTT, C4, CCPAB, FERI, IOCAL, CORTI, CK, C3, REJEC #### [address] [address] Yardage Control Clerk: Jasbir Montalvo MD Hematocrit (Bld) [Volume fraction] 46.3 % Normal 40.7-50.3 [facility] Comment on above: Performed By: #### P HO, CDP, RA, PT, SED, BMPX, FREDA, MG, LD, CRP, FEBC, B12FOL, PTT, C4, CCPAB, FERI, IOCAL, CORTI, CK, C3, REJEC #### [address] [address] Yardage Control Clerk: Jasbir Montalvo MD Hemoglobin (Bld) [Mass/Vol] 14.6 g/dL Normal 13.0-17.0 [facility] Comment on above: Performed By: #### P HO, CDP, RA, PT, SED, BMPX, FREDA, MG, LD, CRP, FEBC, B12FOL, PTT, C4, CCPAB, FERI, IOCAL, CORTI, CK, C3, REJEC #### [address] [address] Yardage Control Clerk: Jasbir Montalvo MD Immature granulocytes/100 WBC (Bld) 0 % Normal 0 [facility] Comment on above: Performed By: #### P HO, CDP, RA, PT, SED, BMPX, FREDA, MG, LD, CRP, FEBC, B12FOL, PTT, C4, CCPAB, FERI, IOCAL, CORTI, CK, C3, REJEC #### [address] [address] Yardage Control Clerk: Jasbir Montalvo MD Lymphocytes (Bld) [#/Vol] 2.76 10*3/uL Normal 1.10-3.70 [facility] Comment on above: Performed By: #### P HO, CDP, RA, PT, SED, BMPX, FREDA, MG, LD, CRP, FEBC, B12FOL, PTT, C4, CCPAB, FERI, IOCAL, CORTI, CK, C3, REJEC #### [address] [address] Yardage Control Clerk: Jasbir Montalvo MD Lymphocytes/100 WBC (Bld) 25 % Normal 24-43 [facility] Comment on above: Performed By: #### P HO, CDP, RA, PT, SED, BMPX, FREDA, MG, LD, CRP, FEBC, B12FOL, PTT, C4, CCPAB, FERI, IOCAL, CORTI, CK, C3, REJEC #### [address] [address] Yardage Control Clerk: Jasbir Montalvo MD MCH (RBC) [Entitic mass] 31.2 pg Normal 25.2-33.5 [facility] Comment on above: Performed By: #### P HO, CDP, RA, PT, SED, BMPX, FREDA, MG, LD, CRP, FEBC, B12FOL, PTT, C4, CCPAB, FERI, IOCAL, CORTI, CK, C3, REJEC #### [address] [address] Yardage Control Clerk: Jasbir Montalvo MD MCHC (RBC) [Mass/Vol] 31.5 g/dL Normal 28.4-34.8 [facility] Comment on above: Performed By: #### P HO, CDP, RA, PT, SED, BMPX, FREDA, MG, LD, CRP, FEBC, B12FOL, PTT, C4, CCPAB, FERI, IOCAL, CORTI, CK, C3, REJEC #### [address] [address] Yardage Control Clerk: Jasbir Montalvo MD MCV (RBC) [Entitic vol] 98.9 fL Normal 82.6-102.9 [facility] Comment on above: Performed By: #### P HO, CDP, RA, PT, SED, BMPX, FREDA, MG, LD, CRP, FEBC, B12FOL, PTT, C4, CCPAB, FERI, IOCAL, CORTI, CK, C3, REJEC #### [address] [address] Yardage Control Clerk: Jasbir Montalvo MD Monocytes (Bld) [#/Vol] 0.82 10*3/uL Normal 0.10-1.20 [facility] Comment on above: Performed By: #### P HO, CDP, RA, PT, SED, BMPX, FREDA, MG, LD, CRP, FEBC, B12FOL, PTT, C4, CCPAB, FERI, IOCAL, CORTI, CK, C3, REJEC #### [address] [address] Yardage Control Clerk: Jasbir Montalvo MD Monocytes/100 WBC (Bld) 8 % Normal 3-12 [facility] Comment on above: Performed By: #### P HO, CDP, RA, PT, SED, BMPX, FREDA, MG, LD, CRP, FEBC, B12FOL, PTT, C4, CCPAB, FERI, IOCAL, CORTI, CK, C3, REJEC #### [address] [address] Yardage Control Clerk: Jasbir Montalvo MD Neutrophil (Seg) 63 % Normal 36-65 [facility] Comment on above: Performed By: #### P HO, CDP, RA, PT, SED, BMPX, FREDA, MG, LD, CRP, FEBC, B12FOL, PTT, C4, CCPAB, FERI, IOCAL, CORTI, CK, C3, REJEC #### [address] [address] Yardage Control Clerk: Jasbir Montalvo MD NRBC Automated 0.0 per 100 WBC Normal 0.0 [facility] Comment on above: Performed By: #### P HO, CDP, RA, PT, SED, BMPX, FREDA, MG, LD, CRP, FEBC, B12FOL, PTT, C4, CCPAB, FERI, IOCAL, CORTI, CK, C3, REJEC #### [address] [address] Yardage Control Clerk: Jasbir Montalvo MD Platelet mean volume (Bld) [Entitic vol] 10.4 fL Normal 8.1-13.5 [facility] Comment on above: Performed By: #### P HO, CDP, RA, PT, SED, BMPX, FREDA, MG, LD, CRP, FEBC, B12FOL, PTT, C4, CCPAB, FERI, IOCAL, CORTI, CK, C3, REJEC #### [address] [address] Yardage Control Clerk: Jasbir Montalvo MD Platelets (Bld) [#/Vol] 223 10*3/uL Normal 138-453 [facility] Comment on above: Performed By: #### P HO, CDP, RA, PT, SED, BMPX, FREDA, MG, LD, CRP, FEBC, B12FOL, PTT, C4, CCPAB, FERI, IOCAL, CORTI, CK, C3, REJEC #### [address] [address] Yardage Control Clerk: Jasbir Montalvo MD RBC (Bld) [#/Vol] 4.68 10*6/uL Normal 4.21-5.77 [facility] Comment on above: Performed By: #### P HO, CDP, RA, PT, SED, BMPX, FREDA, MG, LD, CRP, FEBC, B12FOL, PTT, C4, CCPAB, FERI, IOCAL, CORTI, CK, C3, REJEC #### [address] [address] Yardage Control Clerk: Jasbir Montalvo MD WBC (Bld) [#/Vol] 10.9 10*3/uL Normal 3.5-11.3 [facility] Comment on above: Performed By: #### P HO, CDP, RA, PT, SED, BMPX, FREDA, MG, LD, CRP, FEBC, B12FOL, PTT, C4, CCPAB, FERI, IOCAL, CORTI, CK, C3, REJEC #### [address] [address] Yardage Control Clerk: Jasbir Montalvo MD CT CERVICAL SPINE WO [...] HISTORY: rule out myelopathy, radiculopathy. cannot have LICENSE CLERK PROVIDED HISTORY: rule out myelopathy, radiculopathy. cannot [...] Erica Garcia MD 12/01/23 Final result Normal [facility] CT Cervical spine WO contras ton 12-01-2023 Canal effacement at C6-7. [facility] RIS CONSOLIDATED EXAMINATION: CT OF THE CERVICAL [...] HISTORY: rule out myelopathy, radiculopathy. cannot have LICENSE CLERK PROVIDED HISTORY: rule out myelopathy, radiculopathy. cannot [...] arthropathy.. Mild bilateral foraminal narrowing [facility] RIS Erica Erazo MD - 12/01/2023 EXAMINATION: CT OF THE [...] HISTORY: rule out myelopathy, radiculopathy. cannot have LICENSE CLERK PROVIDED HISTORY: rule out myelopathy, radiculopathy. cannot [...] foraminal narrowing IMPRESSION: Canal effacement at C6-7. [facility] Radiology Study observation (narrative) [facility] CT Cervical spine WO contras tOrdered By: Erica Garcia on 12-01-2023 [facility] Work Phone: CYCLIC CITRUL PEPTIDE ANTIBO DY, IGGon 12-01-2023 Cyclic citrullinated peptide Ab IA Qn (S) 1.5 U/mL 0.0 - 7.0 U/mL [facility] Comment on above: Reference Range: <7.0 Negative 7.0-10.0 Equivocal >10.0 Positive [facility] FL MODIFIED BARIUM SWALLOW W VIDEOon 12-01-2023 FL MODIFIED BARIUM SWALLOW W VIDEO EXAMINATION: MODIFIED BARIUM SWALLOW WAS PERFORMED IN CONJUNCTION WITH SPEECH PATHOLOGY SERVICES TECHNIQUE: Under fluoroscopic evaluation cineradiography/videoradio graphy recordings were performed in conjunction with the speech-language pathologist (DATA PROCESSING OPERATOR). Various liquid, solid and/or semi-solid barium preparations [...] Micah Davis MD 12/01/23 Final result Normal [facility] 1. Trace penetration without aspiration with the thin liquid substance by straw. 2. No penetration or aspiration with the above administered substances. Please see separate speech pathology report for full discussion of findings and recommendations. [facility] RIS CONSOLIDATED EXAMINATION: MODIFIED BARIUM SWALLOW WAS PERFORMED IN CONJUNCTION WITH SPEECH PATHOLOGY SERVICES TECHNIQUE: Under fluoroscopic evaluation cineradiography/videoradio graphy recordings were performed in conjunction with the speech-language pathologist (DATA PROCESSING OPERATOR). Various liquid, solid and/or semi-solid barium preparations [...] with the thin liquid substance by straw. [facility] Micah Johnson MD - 12/01/2023 EXAMINATION: MODIFIED BARIUM SWALLOW WAS PERFORMED IN CONJUNCTION WITH SPEECH PATHOLOGY SERVICES TECHNIQUE: Under fluoroscopic evaluation cineradiography/videoradio graphy recordings were performed in conjunction with the speech-language pathologist (DATA PROCESSING OPERATOR). Various liquid, solid and/or semi-solid barium preparations [...] for full discussion of findings and recommendations. [facility] Radiology Study observation (narrative) [facility] FL MODIFIED BARIUM SWALLOW W VIDEOOrdered By: Micah Davis on 12-01-2023 [facility] Work Phone: Glucose,Whole Bloodon 2023 Glucose [Mass/Vol] 168 mg/dL High 75-110 [facility] Glucose [Mass/Vol] 108 mg/dL Normal 75-110 [facility] Glucose [Mass/Vol] 226 mg/dL High 75-110 [facility] Glucose [Mass/Vol] 150 mg/dL High 75-110 [facility] Glucose [Mass/Vol] 148 mg/dL High 75-110 [facility] POC Glucose Fingerstickon Glucose [Mass/Vol] 168 mg/dL High 75 - 110 mg/dL [facility] Interpretation and review of laboratory results Abnormal [facility] Glucose [Mass/Vol] 108 mg/dL 75 - 110 mg/dL [facility] Glucose [Mass/Vol] 226 mg/dL High 75 - 110 mg/dL [facility] Interpretation and review of laboratory results Abnormal [facility] Glucose [Mass/Vol] 150 mg/dL High 75 - 110 mg/dL [facility] Interpretation and review of laboratory results Abnormal [facility] Glucose [Mass/Vol] 148 mg/dL High 75 - 110 mg/dL [facility] Interpretation and review of laboratory results Abnormal [facility] PSA Screeningon 12-01-2023 Prostate specific Ag [Mass/Vol] 1.50 ng/mL 0.00 - 4.00 ng/mL [facility] Comment on above: The [employer] ECLIA as say is used. Results obtained with different assay methods cannot be used interchangeably. [facility] PSA, Screeningon 12-01-2023 Prostatic Spec. Ag 1.50 ng/mL Normal 0.00-4.00 [facility] Comment on above: Result Comment: The [employer] ECLIA assay is used. Results obtained with different assay methods cannot be used interchangeably. Performed By: #### P HO, CDP, RA, PT, SED, BMPX, FREDA, MG, LD, CRP, FEBC, B12FOL, PTT, C4, CCPAB, FERI, IOCAL, CORTI, CK, C3, REJEC #### [facility] [employer] [facility] [place] [address] [employer]age Control Clerk: Jasbir Montalvo MD PTon 12-01-2023 INR Coag (PPP) [Relative time] 2.8 {INR} Normal [facility] Comment on above: Result Comment: Therapeutic Range: Moderate Anticoagulant Intensity: INR = 2.0-3.0 High Anticoagulant Intensity: INR = 2.5-3.5 Performed By: #### P HO, CDP, RA, PT, SED, BMPX, FREDA, MG, LD, CRP, FEBC, B12FOL, PTT, C4, CCPAB, FERI, IOCAL, CORTI, CK, C3, REJEC #### [facility] [employer] [address] [place] [id number] [employer] Clerk: Jasbir Montalvo MD PT Coag (PPP) [Time] 28.5 s High 11.7-14.9 [facility] Comment on above: Performed By: #### P HO, CDP, RA, PT, SED, BMPX, FREDA, MG, LD, CRP, FEBC, B12FOL, PTT, C4, CCPAB, FERI, IOCAL, CORTI, CK, C3, REJEC #### [address] [id number] [employer] Clerk: Jasbir Montalvo MD Protime-INRon 12-01-2023 INR Coag (PPP) [Relative time] 2.8 {INR} [facility] Comment on above: Therapeutic Range: Moderate Anticoagulant Intensity: INR = 2.0-3.0 High Anticoagulant Intensity: INR = 2.5-3.5 Interpretation and review of laboratory results Abnormal [facility] PT Coag (PPP) [Time] 28.5 s High [facility] Troponinon 12-01-2023 Troponin, High Sens 23 ng/L High 0-22 [facility] Comment on above: Result Comment: High Sensitivity Troponin values cannot be compared with other Troponin methodologies. Performed By: #### P HO, CDP, RA, PT, SED, BMPX, FREDA, MG, LD, CRP, FEBC, B12FOL, PTT, C4, CCPAB, FERI, IOCAL, CORTI, CK, C3, REJEC #### [address] [address] [employer] Clerk: Jasbir Montalvo MD Interpretation and review of laboratory results Abnormal [facility] Troponin I.cardiac High sensitivity method [Mass/Vol] 23 ng/L High 0 - 22 ng/L [facility] Comment on above: High Sensitivity Tro ponin values cannot be compared with other Troponin methodologies. [facility] APTTon 11-30-2023 aPTT Coag (Bld) [Time] 38.4 s High 23.0-36.5 [facility] Comment on above: Result Comment: IV Heparin Therapy Range: 66.0-92.0 sec Performed By: #### P HO, CDP, RA, PT, SED, BMPX, FREDA, MG, LD, CRP, FEBC, B12FOL, PTT, C4, CCPAB, FERI, IOCAL, CORTI, CK, C3, REJEC ####[address] [address] lab Director: Jasbir Montalvo MD aPTT Coag (Bld) [Time] 38.4 s High [facility] Comment on above: IV Heparin Therapy Range: 66.0-92.0 sec B12/Folate Panelon Cobalamin (Vitamin B12) [Mass/Vol] 397 pg/mL Normal 232-1245 [facility] Comment on above: Performed By: #### P HO, CDP, RA, PT, SED, BMPX, FREDA, MG, LD, CRP, FEBC, B12FOL, PTT, C4, CCPAB, FERI, IOCAL, CORTI, CK, C3, REJEC ####[facility] [address] [place] [address] [phone] lab Director: Jasbir Montalvo MD Folic Acid 6.2 ng/mL Normal >4.8 [facility] Comment on above: Performed By: #### P HO, CDP, RA, PT, SED, BMPX, FREDA, MG, LD, CRP, FEBC, B12FOL, PTT, C4, CCPAB, FERI, IOCAL, CORTI, CK, C3, REJEC ####[facility] [address] [place] [address] [phone] Lab Director: Jasbir Montalvo MD BLOOD GAS, VENOUSon 11-30-19 Carboxyhemoglobin (Bld) [Mass fraction] 1.6 % 0 - 5 % [facility] Comment on above: Reference Range: Non-Smokers 0-2% Average Smoker 2-4% Heavy Smoker <10% HCO3 (Bld) [Moles/Vol] 26.1 mmol/L 24 - 30 mmol/L [facility] Interpretation and review of laboratory results Abnormal [facility] Negative Base Excess, Pop 1.1 mmol/L 0.0 - 2.0 mmol/L [facility] Oxygen saturation in Blood 84.3 % 60.0 - 85.0 % [facility] Oxygen/Inspired gas Respiratory system --on ventilator INFORMATION NOT PROVIDED [facility] pCO2, Pop 55.2 High [facility] pH, Pop 7.297 Low 7.320 - 7.420 [facility] pO2, Pop 55.2 High [facility] Basic Metab w/rfx MGon 11-30 Glucose [Mass/Vol] 49 mg/dL Low 70-99 [facility] Comment on above: Performed By: #### P HO, CDP, RA, PT, SED, BMPX, FREDA, MG, LD, CRP, FEBC, B12FOL, PTT, C4, CCPAB, FERI, IOCAL, CORTI, CK, C3, REJEC ####[facility] [id number] [place], [place] [phone] [facility] Director: Jasbir Montalvo MD Anion gap [Moles/Vol] 11 mmol/L Normal 9-17 [facility] Comment on above: Performed By: #### P HO, CDP, RA, PT, SED, BMPX, FREDA, MG, LD, CRP, FEBC, B12FOL, PTT, C4, CCPAB, FERI, IOCAL, CORTI, CK, C3, REJEC ####[facility] [address] [place], [place] [phone] Lab Director: Jasbir Montalvo MD Calcium [Mass/Vol] 8.9 mg/dL Normal 8.6-10.4 [facility] Comment on above: Performed By: #### P HO, CDP, RA, PT, SED, BMPX, FREDA, MG, LD, CRP, FEBC, B12FOL, PTT, C4, CCPAB, FERI, IOCAL, CORTI, CK, C3, REJEC ####[address] [phone] Lab Director: Jasbir Montalvo MD Chloride [Moles/Vol] 114 mmol/L High 98-107 [facility] Comment on above: Performed By: #### P HO, CDP, RA, PT, SED, BMPX, FREDA, MG, LD, CRP, FEBC, B12FOL, PTT, C4, CCPAB, FERI, IOCAL, CORTI, CK, C3, REJEC ####[address] [address] lab Director: Jasbir Montalvo MD CO2 [Moles/Vol] 21 mmol/L Normal 20-31 [facility] Comment on above: Performed By: #### P HO, CDP, RA, PT, SED, BMPX, FREDA, MG, LD, CRP, FEBC, B12FOL, PTT, C4, CCPAB, FERI, IOCAL, CORTI, CK, C3, REJEC ####[address] [address] Lab Director: Jasbir Montalvo MD Creatinine [Mass/Vol] 1.5 mg/dL High 0.7-1.2 [facility] Comment on above: Performed By: #### P HO, CDP, RA, PT, SED, BMPX, FREDA, MG, LD, CRP, FEBC, B12FOL, PTT, C4, CCPAB, FERI, IOCAL, CORTI, CK, C3, REJEC ####[address] [address] Lab Director: Jasbir Montalvo MD GFR/1.73 sq M.predicted among non-blacks MDRD (S/P/Bld) [Vol rate/Area] 52 mL/min/{1.73_m2} Low >60 [facility] Comment on above: Result Comment: [...] CCPAB, FERI, IOCAL, CORTI, CK, C3, REJEC ####[place] [id number] [facility] Director: Jasbir Montalvo MD Potassium [Moles/Vol] 3.7 mmol/L Normal 3.7-5.3 [facility] Comment on above: Performed By: #### P HO, CDP, RA, PT, SED, BMPX, FREDA, MG, LD, CRP, FEBC, B12FOL, PTT, C4, CCPAB, FERI, IOCAL, CORTI, CK, C3, REJEC ####[place] [id number] [facility] Director: Jasbir Montalvo MD Sodium [Moles/Vol] 146 mmol/L High 135-144 [facility] Comment on above: Performed By: #### P HO, CDP, RA, PT, SED, BMPX, FREDA, MG, LD, CRP, FEBC, B12FOL, PTT, C4, CCPAB, FERI, IOCAL, CORTI, CK, C3, REJEC ####[place] [id number] Lab Director: Jasbir Montalvo MD Urea nitrogen [Mass/Vol] 37 mg/dL High 8-23 [facility] Comment on above: Performed By: #### P HO, CDP, RA, PT, SED, BMPX, FREDA, MG, LD, CRP, FEBC, B12FOL, PTT, C4, CCPAB, FERI, IOCAL, CORTI, CK, C3, REJEC ####[facility] [address] [place] [address] lab Director: Jasbir Montalvo MD Basic Metabolic Panel w/ Ref sarah to MGon 11-30-2023 Anion gap [Moles/Vol] 11 mmol/L 9 - 17 mmol/L [facility] [employer] Calcium [Mass/Vol] 8.9 mg/dL 8.6 - 10. 4 mg/dL [facility] Chloride [Moles/Vol] 114 mmol/L High 98 - 107 mmol/L [facility] [employer] CO2 [Moles/Vol] 21 mmol/L 20 - 31 mmol/L [facility] Creatinine [Mass/Vol] 1.5 mg/dL High 0.7 - 1.2 mg/dL [facility] [employer] GFR/1.73 sq M.predicted MDRD (S/P/Bld) [Vol rate/Area] 52 mL/min/{1.73_m2} Low - PINF [facility] [employer] Comment on above: These results are not [...] 49 mg/dL Low 70 - 99 mg/dL [facility] [employer] Interpretation and review of laboratory results Abnormal [facility] Potassium [Moles/Vol] 3.7 mmol/L 3.7 - 5.3 mmol/L [facility] Sodium [Moles/Vol] 146 mmol/L High 135 - 144 mmol/L [facility] Urea nitrogen [Mass/Vol] 37 mg/dL High 8 - 23 mg/dL [facility] C-Reactive Proteinon 11-30- 024 CRP [Mass/Vol] 4.8 mg/L Normal 0.0-5.0 [facility] Comment on above: Performed By: #### P HO, CDP, RA, PT, SED, BMPX, FREDA, MG, LD, CRP, FEBC, B12FOL, PTT, C4, CCPAB, FERI, IOCAL, CORTI, CK, C3, REJEC #### [employer] [address] [place] [address] [employer] Clerk: Jasbir Montalvo MD CRP High sensitivity method [Mass/Vol] 4.8 mg/L 0.0 - 5.0 mg/L [facility] C3on 11-30-2023 C3 146 mg/dL Normal 90-180 [facility] Comment on above: Performed By: #### P HO, CDP, RA, PT, SED, BMPX, FREDA, MG, LD, CRP, FEBC, B12FOL, PTT, C4, CCPAB, FERI, IOCAL, CORTI, CK, C3, REJEC #### [facility] [employer] [address] [place] [address] [phone] [employer] Clerk: Jasbir Montalvo MD C3 COMPLEMENTon 11-30-2023 Complement C3 [Mass/Vol] 146 mg/dL 90 - 180 mg/dL [facility] [employer] C4on 11-30-2023 C4 24 mg/dL Normal 10-40 [facility] Comment on above: Performed By: #### P HO, CDP, RA, PT, SED, BMPX, FREDA, MG, LD, CRP, FEBC, B12FOL, PTT, C4, CCPAB, FERI, IOCAL, CORTI, CK, C3, REJEC #### [employer] [address] [place] [address] [employer] Clerk: Jasbir Montalvo MD C4 COMPLEMENTon 11-30-2023 Complement C4 [Mass/Vol] 24 mg/dL 10 - 40 mg/dL [facility] [employer] CBC with Auto Differentialon 11-30-2023 Basophils (Bld) [#/Vol] 0.08 10*3/uL [facility] [email or web address] Basophils/100 WBC (Bld) 1 % 0 - 2 % [facility] Eosinophils (Bld) [#/Vol] 0.31 10*3/uL [facility] Eosinophils/100 WBC (Bld) 3 % 1 - 4 % [facility] Erythrocyte distribution width (RBC) [Ratio] 14.2 % 11.8 - 14.4 % [facility] Hematocrit (Bld) [Volume fraction] 49.3 % 40.7 - 50.3 % [facility] Hemoglobin (Bld) [Mass/Vol] 15.4 g/dL 13.0 - 17.0 g/dL [facility] Immature granulocytes (Bld) [#/Vol] [facility] Immature granulocytes/100 WBC (Bld) 0 % 0 [facility] Lymphocytes/100 WBC (Bld) 26 % 24 - 43 % [facility] Lymphocytes/100 WBC (Bld) 2.64 % [facility] MCH (RBC) [Entitic mass] 31.2 pg 25.2 - 33.5 pg [facility] MCHC (RBC) [Mass/Vol] 31.2 g/dL 28.4 - 34.8 g/dL [facility] MCV (RBC) [Entitic vol] 99.8 fL 82.6 - 102.9 fL [facility] Monocytes/100 WBC (Bld) 7 % 3 - 12 % [facility] Monocytes/100 WBC (Bld) 0.74 % [facility] Neutrophils/100 WBC (Bld) 63 % 36 - 65 % [facility] Nucleated RBC/100 WBC (Bld) [Ratio] 0.0 % 0.0 per 100 WBC [facility] Platelet mean volume (Bld) [Entitic vol] 10.0 fL 8.1 - 13.5 fL [facility] Platelets (Bld) [#/Vol] 214 10*3/uL [facility] RBC (Bld) [#/Vol] 4.94 10*6/uL 4.21 - 5.7 7 m/uL [facility] Segmented neutrophils/100 WBC (Bld) 6.30 % [facility] WBC other (Bld) [#/Vol] 10.1 [facility] CBC with Diffon 11-30-2023 Abs. Basophil 0.08 k/uL Normal 0.00-0.20 [facility] Comment on above: Performed By: #### P HO, CDP, RA, PT, SED, BMPX, FREDA, MG, LD, CRP, FEBC, B12FOL, PTT, C4, CCPAB, FERI, IOCAL, CORTI, CK, C3, REJEC #### [facility] [employer] [address] [place] [address] [phone] [employer] Clerk: Jasbir Montalvo MD Abs.Imm.Granulocyte <0.03 Normal 0.00-0.30 [facility] Comment on above: Performed By: #### P HO, CDP, RA, PT, SED, BMPX, FREDA, MG, LD, CRP, FEBC, B12FOL, PTT, C4, CCPAB, FERI, IOCAL, CORTI, CK, C3, REJEC #### [facility] [employer] [address] [place] [address] [phone] [employer] Clerk: Jasbir Montalvo MD Abs.Neutrophil (Seg) 6.30 k/uL Normal 1.50-8.10 [facility] Comment on above: Performed By: #### P HO, CDP, RA, PT, SED, BMPX, FREDA, MG, LD, CRP, FEBC, B12FOL, PTT, C4, CCPAB, FERI, IOCAL, CORTI, CK, C3, REJEC #### [facility] [employer] [address] [place] [address] [phone] [employer] Clerk: Jasbir Montalvo MD Basophils/100 WBC (Bld) 1 % Normal 0-2 [facility] Comment on above: Performed By: #### P HO, CDP, RA, PT, SED, BMPX, FREDA, MG, LD, CRP, FEBC, B12FOL, PTT, C4, CCPAB, FERI, IOCAL, CORTI, CK, C3, REJEC #### [facility] [employer] [address] [place] [address] [employer] Clerk: Jasbir Montalvo MD Eosinophils (Bld) [#/Vol] 0.31 10*3/uL Normal 0.00-0.44 [facility] Comment on above: Performed By: #### P HO, CDP, RA, PT, SED, BMPX, FREDA, MG, LD, CRP, FEBC, B12FOL, PTT, C4, CCPAB, FERI, IOCAL, CORTI, CK, C3, REJEC #### [address] [address] [employer] Clerk: Jasbir Montalvo MD Eosinophils/100 WBC (Bld) 3 % Normal 1-4 [facility] Comment on above: Performed By: #### P HO, CDP, RA, PT, SED, BMPX, FREDA, MG, LD, CRP, FEBC, B12FOL, PTT, C4, CCPAB, FERI, IOCAL, CORTI, CK, C3, REJEC #### [address] [address] [employer] Clerk: Jasbir Montalvo MD Erythrocyte distribution width (RBC) [Ratio] 14.2 % Normal 11.8-14.4 [facility] Comment on above: Performed By: #### P HO, CDP, RA, PT, SED, BMPX, FREDA, MG, LD, CRP, FEBC, B12FOL, PTT, C4, CCPAB, FERI, IOCAL, CORTI, CK, C3, REJEC #### [facility] [employer] [address] [place] [address] [employer] Clerk: Jasbir Montalvo MD Hematocrit (Bld) [Volume fraction] 49.3 % Normal 40.7-50.3 [facility] Comment on above: Performed By: #### P HO, CDP, RA, PT, SED, BMPX, FREDA, MG, LD, CRP, FEBC, B12FOL, PTT, C4, CCPAB, FERI, IOCAL, CORTI, CK, C3, REJEC #### [address] [phone] [employer] Clerk: Jasbir Montalvo MD Hemoglobin (Bld) [Mass/Vol] 15.4 g/dL Normal 13.0-17.0 [facility] Comment on above: Performed By: #### P HO, CDP, RA, PT, SED, BMPX, FREDA, MG, LD, CRP, FEBC, B12FOL, PTT, C4, CCPAB, FERI, IOCAL, CORTI, CK, C3, REJEC #### [address] [phone] [employer] Clerk: Jasbir Montalvo MD Immature granulocytes/100 WBC (Bld) 0 % Normal 0 [facility] Comment on above: Performed By: #### P HO, CDP, RA, PT, SED, BMPX, FREDA, MG, LD, CRP, FEBC, B12FOL, PTT, C4, CCPAB, FERI, IOCAL, CORTI, CK, C3, REJEC #### [address] [phone] [employer] Clerk: Jasbir Montalvo MD Lymphocytes (Bld) [#/Vol] 2.64 10*3/uL Normal 1.10-3.70 [facility] Comment on above: Performed By: #### P HO, CDP, RA, PT, SED, BMPX, FREDA, MG, LD, CRP, FEBC, B12FOL, PTT, C4, CCPAB, FERI, IOCAL, CORTI, CK, C3, REJEC #### [address] [address] [employer] Clerk: Jasbir Montalvo MD Lymphocytes/100 WBC (Bld) 26 % Normal 24-43 [facility] Comment on above: Performed By: #### P HO, CDP, RA, PT, SED, BMPX, FREDA, MG, LD, CRP, FEBC, B12FOL, PTT, C4, CCPAB, FERI, IOCAL, CORTI, CK, C3, REJEC #### [address] [phone] [employer] Clerk: Jasbir Montalvo MD MCH (RBC) [Entitic mass] 31.2 pg Normal 25.2-33.5 [facility] Comment on above: Performed By: #### P HO, CDP, RA, PT, SED, BMPX, FREDA, MG, LD, CRP, FEBC, B12FOL, PTT, C4, CCPAB, FERI, IOCAL, CORTI, CK, C3, REJEC #### [address] [phone] [employer] Clerk: Jasbir Montalvo MD MCHC (RBC) [Mass/Vol] 31.2 g/dL Normal 28.4-34.8 [facility] Comment on above: Performed By: #### P HO, CDP, RA, PT, SED, BMPX, FREDA, MG, LD, CRP, FEBC, B12FOL, PTT, C4, CCPAB, FERI, IOCAL, CORTI, CK, C3, REJEC #### [address] [address] [employer] Clerk: Jasbir Montalvo MD MCV (RBC) [Entitic vol] 99.8 fL Normal 82.6-102.9 [facility] Comment on above: Performed By: #### P HO, CDP, RA, PT, SED, BMPX, FREDA, MG, LD, CRP, FEBC, B12FOL, PTT, C4, CCPAB, FERI, IOCAL, CORTI, CK, C3, REJEC #### [address] [address] [employer] Clerk: Jasbir Montalvo MD Monocytes (Bld) [#/Vol] 0.74 10*3/uL Normal 0.10-1.20 [facility] Comment on above: Performed By: #### P HO, CDP, RA, PT, SED, BMPX, FREDA, MG, LD, CRP, FEBC, B12FOL, PTT, C4, CCPAB, FERI, IOCAL, CORTI, CK, C3, REJEC #### [address] [address] [employer] Clerk: Jasbir Montalvo MD Monocytes/100 WBC (Bld) 7 % Normal 3-12 [facility] Comment on above: Performed By: #### P HO, CDP, RA, PT, SED, BMPX, FREDA, MG, LD, CRP, FEBC, B12FOL, PTT, C4, CCPAB, FERI, IOCAL, CORTI, CK, C3, REJEC #### [address] [phone] [employer] Clerk: Jasbir Montalvo MD Neutrophil (Seg) 63 % Normal 36-65 [facility] Comment on above: Performed By: #### P HO, CDP, RA, PT, SED, BMPX, FREDA, MG, LD, CRP, FEBC, B12FOL, PTT, C4, CCPAB, FERI, IOCAL, CORTI, CK, C3, REJEC #### [address] [address] [employer] Clerk: Jasbir Montalvo MD NRBC Automated 0.0 per 100 WBC Normal 0.0 [facility] Comment on above: Performed By: #### P HO, CDP, RA, PT, SED, BMPX, FREDA, MG, LD, CRP, FEBC, B12FOL, PTT, C4, CCPAB, FERI, IOCAL, CORTI, CK, C3, REJEC #### [address] [phone] [employer] Clerk: Jasbir Mnotalvo MD Platelet mean volume (Bld) [Entitic vol] 10.0 fL Normal 8.1-13.5 [facility] Comment on above: Performed By: #### P HO, CDP, RA, PT, SED, BMPX, FREDA, MG, LD, CRP, FEBC, B12FOL, PTT, C4, CCPAB, FERI, IOCAL, CORTI, CK, C3, REJEC #### [address] [place], [place] [phone] [employer] Clerk: Jasbir Montalvo MD Platelets (Bld) [#/Vol] 214 10*3/uL Normal 138-453 [facility] Comment on above: Performed By: #### P HO, CDP, RA, PT, SED, BMPX, FREDA, MG, LD, CRP, FEBC, B12FOL, PTT, C4, CCPAB, FERI, IOCAL, CORTI, CK, C3, REJEC #### [address] [phone] [employer] Clerk: Jasbir Montalvo MD RBC (Bld) [#/Vol] 4.94 10*6/uL Normal 4.21-5.77 [facility] Comment on above: Performed By: #### P HO, CDP, RA, PT, SED, BMPX, FREDA, MG, LD, CRP, FEBC, B12FOL, PTT, C4, CCPAB, FERI, IOCAL, CORTI, CK, C3, REJEC #### [address] [phone] [employer] Clerk: Jasbir Montalvo MD WBC (Bld) [#/Vol] 10.1 10*3/uL Normal 3.5-11.3 [facility] Comment on above: Performed By: #### P HO, CDP, RA, PT, SED, BMPX, FREDA, MG, LD, CRP, FEBC, B12FOL, PTT, C4, CCPAB, FERI, IOCAL, CORTI, CK, C3, REJEC #### [address] [phone] [employer] Clerk: Jasbir Montalvo MD CKon 11-30-2023 CK [Catalytic activity/Vol] 69 U/L 39 - 308 U/L [facility] CT LUMBAR SPINE WO CONTRASTo n [...] Shanthi Mcdonough MD 11/30/23 Final result Normal [facility] CT THORACIC SPINE WO CONTRAS [...] Shanthi Mcdonough MD 11/30/23 Final result Normal [facility] Calcium, Ionicon 11-30-2023 Calcium [Moles/Vol] 1.21 mmol/L Normal 1.13-1.33 [facility] Comment on above: Performed By: #### P HO, CDP, RA, PT, SED, BMPX, FREDA, MG, LD, CRP, FEBC, B12FOL, PTT, C4, CCPAB, FERI, IOCAL, CORTI, CK, C3, REJEC ####[employer] [place] [address] [phone] Lab Director: Jasbir Montalvo MD Calcium, Ionizedon Calcium.ionized (Bld) [Moles/Vol] 1.21 mmol/L 1.13 - 1.33 mmol/L [facility] Cortisolon 11-30-2023 Cortisol 15.5 ug/dL Normal 2.7-18.4 [facility] Comment on above: Result Comment: Cortisol Reference Range: AM 6.0-18.4 PM 2.7-10.5 Performed By: #### P HO, CDP, RA, PT, SED, BMPX, FREDA, MG, LD, CRP, FEBC, B12FOL, PTT, C4, CCPAB, FERI, IOCAL, CORTI, CK, C3, REJEC #### [employer] [address] [place] [address] [phone] [employer] Clerk: Jasbir Montalvo MD Cortisol Totalon 11-30-2023 Cortisol [Mass/Vol] 15.5 ug/dL 2.7 - 18 .4 ug/dL [facility] Comment on above: Cortisol Reference Range: AM 6.0-18.4 PM 2.7-10.5 Creatine Kinaseon 11-30-2023 CK [Catalytic activity/Vol] 69 U/L Normal 39-308 [facility] Comment on above: Performed By: #### P HO, CDP, RA, PT, SED, BMPX, FREDA, MG, LD, CRP, FEBC, B12FOL, PTT, C4, CCPAB, FERI, IOCAL, CORTI, CK, C3, REJEC #### [employer] [address] [place] [address] [phone] [employer] Clerk: Jasbir Montalvo MD Ferritinon 11-30-2023 Ferritin [Mass/Vol] 151 ng/mL Normal 30-400 [facility] Comment on above: Performed By: #### P HO, CDP, RA, PT, SED, BMPX, FREDA, MG, LD, CRP, FEBC, B12FOL, PTT, C4, CCPAB, FERI, IOCAL, CORTI, CK, C3, REJEC #### [employer] [address] [place] [address] [employer] Clerk: Jasbir Montalvo MD Ferritin [Mass/Vol] 151 ng/mL 30 - 400 ng/mL [facility] Glucose,Whole Bloodon 2023 Glucose [Mass/Vol] 231 mg/dL High 75-110 [facility] Glucose [Mass/Vol] 98 mg/dL Normal 75-110 [facility] Glucose [Mass/Vol] 154 mg/dL High 75-110 [facility] Glucose [Mass/Vol] 137 mg/dL High 75-110 [facility] Glucose [Mass/Vol] 55 mg/dL Low 75-110 [facility] Glucose [Mass/Vol] 48 mg/dL Low 75-110 [facility] Comment on above: Result Comment: Evaristo cannon Noted [employer] Cap.on 11-30-19 24 % Fe Saturation 24 % Normal 20-55 [facility] Comment on above: Performed By: #### P HO, CDP, RA, PT, SED, BMPX, FREDA, MG, LD, CRP, FEBC, B12FOL, PTT, C4, CCPAB, FERI, IOCAL, CORTI, CK, C3, REJEC #### [employer] [facility] [place] [address] Yardage Control Clerk: Jasbir Montalvo MD Iron [Mass/Vol] 54 ug/dL Low 59-158 [facility] Comment on above: Performed By: #### P HO, CDP, RA, PT, SED, BMPX, FREDA, MG, LD, CRP, FEBC, B12FOL, PTT, C4, CCPAB, FERI, IOCAL, CORTI, CK, C3, REJEC #### [facility] [address] [place] [address] [phone] Yardage Control Clerk: Jasbir Montalvo MD Total Fe Binding Cap 224 ug/dL Low 250-450 [facility] Comment on above: Performed By: #### P HO, CDP, RA, PT, SED, BMPX, FREDA, MG, LD, CRP, FEBC, B12FOL, PTT, C4, CCPAB, FERI, IOCAL, CORTI, CK, C3, REJEC #### [facility] [employer] [address] [place] [address] [phone] Yardage Control Clerk: Jasbir Montalvo MD Unbound Fe Bind Cap 170 ug/dL Normal 112-347 [facility] Comment on above: Performed By: #### P HO, CDP, RA, PT, SED, BMPX, FREDA, MG, LD, CRP, FEBC, B12FOL, PTT, C4, CCPAB, FERI, IOCAL, CORTI, CK, C3, REJEC #### [facility] [employer] [address] [place] [address] [phone] Yardage Control Clerk: Jasbir Montalvo MD Iron and TIBCon 11-30-2023 Interpretation and review of laboratory results Abnormal [facility] Iron [Mass/Vol] 54 ug/dL Low 59 - 158 ug/dL [facility] Iron binding capacity [Mass/Vol] 224 ug/dL Low 250 - 450 ug/dL [facility] Iron saturation [Mass fraction] 24 % 20 - 55 % [facility] UIBC 170 ug/dL 112 - 347 ug/dL [facility] Lactate Dehydrogenaseon 11-07 LDH [Catalytic activity/Vol] 243 U/L High 135-225 [facility] Comment on above: Performed By: #### P HO, CDP, RA, PT, SED, BMPX, FREDA, MG, LD, CRP, FEBC, B12FOL, PTT, C4, CCPAB, FERI, IOCAL, CORTI, CK, C3, REJEC #### [employer] [address] [place] [address] Yardage Control Clerk: Jasbir Montalvo MD LDH [Catalytic activity/Vol] 243 U/L High 135 - 225 U/L [facility] Magnesiumon 11-30-2023 Magnesium [Mass/Vol] 2.7 mg/dL High 1.6-2.6 [facility] Comment on above: Performed By: #### P HO, CDP, RA, PT, SED, BMPX, FREDA, MG, LD, CRP, FEBC, B12FOL, PTT, C4, CCPAB, FERI, IOCAL, CORTI, CK, C3, REJEC ####[employer] [id number] [place] [id number] Lab Director: Jasbir oMntalvo MD Magnesium [Mass/Vol] 2.7 mg/dL High 1.6 - 2.6 mg/dL [facility] Myoglobinon 11-30-2023 Myoglobin [Mass/Vol] 59 ng/mL Normal 28-72 [facility] Comment on above: Performed By: #### P HO, CDP, RA, PT, SED, BMPX, FREDA, MG, LD, CRP, FEBC, B12FOL, PTT, C4, CCPAB, FERI, IOCAL, CORTI, CK, C3, REJEC ####[facility] [id number] [place] [id number] Lab Director: Jasbir Montalvo MD Myoglobin, Bloodon Myoglobin [Mass/Vol] 59 ng/mL 28 - 72 ng/mL [facility] No Panel Informationon 11-30 [facility] CT thoracic spine: M ild dextroscoliotic [...] SOFT TISSUES/RETROPERITONEUM: No paraspinal mass is seen. [facility] Shanthi Mcdonough MD - 11/30/2023 [...] and degenerative disc changes L3 through S1. [facility] Radiology Study observation (narrative) [facility] Interpretation and review of laboratory results Abnormal [employer] [facility] Interpretation and review of laboratory results Abnormal [facility] No Panel InformationOrdered By: Shanthi Mcdonough on 11-30-2023 [employer] Work Phone: POC Glucose Fingerstickon Glucose [Mass/Vol] 231 mg/dL High 75 - 110 mg/dL [facility] Interpretation and review of laboratory results Abnormal [facility] [employer] [facility] Glucose [Mass/Vol] 98 mg/dL 75 - 110 mg/dL [facility] Glucose [Mass/Vol] 154 mg/dL High 75 - 110 mg/dL [facility] Interpretation and review of laboratory results Abnormal [facility] Glucose [Mass/Vol] 137 mg/dL High 75 - 110 mg/dL [facility] Interpretation and review of laboratory results Abnormal [facility] Glucose [Mass/Vol] 55 mg/dL Low 75 - 110 mg/dL [facility] Interpretation and review of laboratory results Abnormal [facility] Glucose [Mass/Vol] 48 mg/dL Low 75 - 110 mg/dL [facility] Comment on above: Critical Noted Interpretation and review of laboratory results Abnormal [facility] PTon 11-30-2023 INR Coag (PPP) [Relative time] 3.0 {INR} Normal [facility] Comment on above: Result Comment: Therapeutic Range: Moderate Anticoagulant Intensity: INR = 2.0-3.0 High Anticoagulant Intensity: INR = 2.5-3.5 Performed By: #### P HO, CDP, RA, PT, SED, BMPX, FREDA, MG, LD, CRP, FEBC, B12FOL, PTT, C4, CCPAB, FERI, IOCAL, CORTI, CK, C3, REJEC ####[facility] [id number] [place] [address] lab Director: Jasbir Montalvo MD PT Coag (PPP) [Time] 30.0 s High 11.7-14.9 [facility] Comment on above: Performed By: #### P HO, CDP, RA, PT, SED, BMPX, FREDA, MG, LD, CRP, FEBC, B12FOL, PTT, C4, CCPAB, FERI, IOCAL, CORTI, CK, C3, REJEC ####[facility] [id number] [place] [id number] lab Director: Jasbir Montalvo MD Phosphoruson 11-30-2023 Phosphate [Mass/Vol] 3.5 mg/dL 2.5 - 4.5 mg/dL [facility] Phosphorus, Inorg.on 024 Phosphorus, Inorg. 3.5 mg/dL Normal 2.5-4.5 [facility] Comment on above: Performed By: #### P HO, CDP, RA, PT, SED, BMPX, FREDA, MG, LD, CRP, FEBC, B12FOL, PTT, C4, CCPAB, FERI, IOCAL, CORTI, CK, C3, REJEC ####[employer] [place], [place] [id number] lab Director: Jasbir Montalvo MD Protime-INRon 11-30-2023 INR Coag (PPP) [Relative time] 3.0 {INR} [facility] Comment on above: Therapeutic Range: Moderate Anticoagulant Intensity: INR = 2.0-3.0 High Anticoagulant Intensity: INR = 2.5-3.5 PT Coag (PPP) [Time] 30.0 s High [facility] RA Screenon 11-30-2023 RA Screen <10 Normal <14 [facility] Comment on above: Performed By: #### P HO, CDP, RA, PT, SED, BMPX, FREDA, MG, LD, CRP, FEBC, B12FOL, PTT, C4, CCPAB, FERI, IOCAL, CORTI, CK, C3, REJEC ####[employer] [place] [address] Lab Director: Jasbir Montalvo MD RHEUMATOID FACTORon 11-30-19 24 Rheumatoid factor Nephelometry Qn (S) <10 NINF [facility] Sedimentation Rateon 024 Sedimentation Rate 18 mm/Hr Normal 0-20 [facility] Comment on above: Performed By: #### P HO, CDP, RA, PT, SED, BMPX, FREDA, MG, LD, CRP, FEBC, B12FOL, PTT, C4, CCPAB, FERI, IOCAL, CORTI, CK, C3, REJEC ####[address] [address] Lab Director: Jasbir Montalvo MD ESR Photometric method (Bld) [Velocity] 18 [facility] Specimen Rejectionon 024 Reason for rejection Unable to perform testing: Specimen quantity not sufficient. [facility] Comment on above: Performed By: #### P HO, CDP, RA, PT, SED, BMPX, FREDA, MG, LD, CRP, FEBC, B12FOL, PTT, C4, CCPAB, FERI, IOCAL, CORTI, CK, C3, REJEC #### [address] [address] Yard[employer] Control Clerk: Jasbir Montalvo MD Source of sample .BLOOD [facility] Comment on above: Performed By: #### P HO, CDP, RA, PT, SED, BMPX, FREDA, MG, LD, CRP, FEBC, B12FOL, PTT, C4, CCPAB, FERI, IOCAL, CORTI, CK, C3, REJEC #### [address] [id number] [employer] Clerk: Jasbir Montalvo MD Test ordered AALDO [facility] Comment on above: Performed By: #### P HO, CDP, RA, PT, SED, BMPX, FREDA, MG, LD, CRP, FEBC, B12FOL, PTT, C4, CCPAB, FERI, IOCAL, CORTI, CK, C3, REJEC #### [address] [phone] [employer] Control Clerk: Jasbir Montalvo MD T. PALLIDUM ABon 11-30-2023 T. pallidum Ab IA Ql (S) Non-Reactive NONREACTIVE [facility] Comment on above: T. pallidum antibodies are not detected. There is no serological evidence of infection with T. pallidum (early primary syphilis cannot be excluded). Retest in 2-4 weeks if syphilis is clinically suspect. [facility] T.pallidum Ab Screenon 11-30 T.pallidum Ab Screen Non-Reactive Normal NR [facility] Comment on above: Result Comment: [...] FERI, IOCAL, CORTI, CK, C3, REJEC #### [facility] [employer] [address] [place] [address] [phone] [employer] Clerk: Jasbir Montalvo MD TSH w/reflex to FT4on 2023 Thyroid Stim. Horm. 0.36 uIU/mL Normal 0.30-5.00 [facility] Comment on above: Performed By: #### P HO, CDP, RA, PT, SED, BMPX, FERDA, MG, LD, CRP, FEBC, B12FOL, PTT, C4, CCPAB, FERI, IOCAL, CORTI, CK, C3, REJEC #### [facility] [employer] [address] [place] [address] Yardage Control Clerk: Jasbir Montalvo MD TSH with Reflexon 11-30-2023 TSH Qn 0.36 m[IU]/L [facility] Venous Blood Gaseson 024 Body Temp. 37.0 Normal [facility] Comment on above: Performed By: #### P HO, CDP, RA, PT, SED, BMPX, FREDA, MG, LD, CRP, FEBC, B12FOL, PTT, C4, CCPAB, FERI, IOCAL, CORTI, CK, C3, REJEC #### [facility] [employer] [address] [place] [address] Yardage Control Clerk: Jasbir Montalvo MD Carboxy Hgb 1.6 % Normal 0-5 [facility] Comment on above: Result Comment: Reference Range: Non-Smokers 0-2% Average Smoker 2-4% Heavy Smoker <10% Performed By: #### P HO, CDP, RA, PT, SED, BMPX, FREDA, MG, LD, CRP, FEBC, B12FOL, PTT, C4, CCPAB, FERI, IOCAL, CORTI, CK, C3, REJEC #### [address] [address] Yardage Control Clerk: Jasbir Montalov MD FIO2 INFORMATION NOT PROVIDED Normal [facility] Comment on above: Performed By: #### P HO, CDP, RA, PT, SED, BMPX, FREDA, MG, LD, CRP, FEBC, B12FOL, PTT, C4, CCPAB, FERI, IOCAL, CORTI, CK, C3, REJEC #### [address] [phone] Yard[employer] Control Clerk: Jasbir Montalvo MD HCO3 (Bld) [Moles/Vol] 26.1 mmol/L Normal 24-30 [facility] Comment on above: Performed By: #### P HO, CDP, RA, PT, SED, BMPX, FREDA, MG, LD, CRP, FEBC, B12FOL, PTT, C4, CCPAB, FERI, IOCAL, CORTI, CK, C3, REJEC #### [address] [address] Yardage Control Clerk: Jasbir Montalvo MD Negative Base Excess 1.1 mmol/L Normal 0.0-2.0 [facility] Comment on above: Performed By: #### P HO, CDP, RA, PT, SED, BMPX, FREDA, MG, LD, CRP, FEBC, B12FOL, PTT, C4, CCPAB, FERI, IOCAL, CORTI, CK, C3, REJEC #### [address] [address] Yardage Control Clerk: Jasbir Montalvo MD Oxygen saturation in Blood 84.3 % Normal 60.0-85.0 [facility] Comment on above: Performed By: #### P HO, CDP, RA, PT, SED, BMPX, FREDA, MG, LD, CRP, FEBC, B12FOL, PTT, C4, CCPAB, FERI, IOCAL, CORTI, CK, C3, REJEC #### [address] [address] Yardage Control Clerk: Jasbir Montalvo MD pCO2 55.2 mm Hg High 39-55 [facility] Comment on above: Performed By: #### P HO, CDP, RA, PT, SED, BMPX, FREDA, MG, LD, CRP, FEBC, B12FOL, PTT, C4, CCPAB, FERI, IOCAL, CORTI, CK, C3, REJEC #### [address] [address] Yardage Control Clerk: Jasbir Montalvo MD pH (Bld) 7.297 [pH] Low 7.320-7.420 [facility] Comment on above: Performed By: #### P HO, CDP, RA, PT, SED, BMPX, FREDA, MG, LD, CRP, FEBC, B12FOL, PTT, C4, CCPAB, FERI, IOCAL, CORTI, CK, C3, REJEC #### [address] [address] Yardage Control Clerk: Jasbir Montalvo MD pO2 55.2 mm Hg High 30-50 [facility] Comment on above: Performed By: #### P HO, CDP, RA, PT, SED, BMPX, FREDA, MG, LD, CRP, FEBC, B12FOL, PTT, C4, CCPAB, FERI, IOCAL, CORTI, CK, C3, REJEC #### [address] [address] Yardage Control Clerk: Jasbir Montalvo MD Vitamin B12 & Folateon 11-30 Cobalamin (Vitamin B12) [Mass/Vol] 397 pg/mL 232 - 1245 pg/mL [facility] Folate [Mass/Vol] 6.2 ng/mL 4.8 - PINF ng/mL [facility] CT HEAD WO CONTRASTon 2023 CT HEAD [...] Nathaly Oh MD 11/29/23 Final result Normal [facility] Comp Metabolic Pr/rfx MGon 0 11-29-2023 AST [Catalytic activity/Vol] 18 U/L Normal <40 [facility] Comment on above: Performed By: #### P HO, CDP, RA, PT, SED, BMPX, FREDA, MG, LD, CRP, FEBC, B12FOL, PTT, C4, CCPAB, FERI, IOCAL, CORTI, CK, C3, REJEC #### [address] [address] Yardage Control Clerk: Jasbir Montalvo MD Albumin [Mass/Vol] 3.4 g/dL Low 3.5-5.2 [facility] Comment on above: Performed By: #### P HO, CDP, RA, PT, SED, BMPX, FREDA, MG, LD, CRP, FEBC, B12FOL, PTT, C4, CCPAB, FERI, IOCAL, CORTI, CK, C3, REJEC #### [address] [address] Yardage Control Clerk: Jasbir Montalvo MD Albumin/Glob Ratio 1.1 Normal 1.0-2.5 [facility] Comment on above: Performed By: #### P HO, CDP, RA, PT, SED, BMPX, FREDA, MG, LD, CRP, FEBC, B12FOL, PTT, C4, CCPAB, FERI, IOCAL, CORTI, CK, C3, REJEC #### [address] [address] Yardage Control Clerk: Jasbir Montalvo MD Alkaline Phos 93 U/L Normal 40-129 [facility] Comment on above: Performed By: #### P HO, CDP, RA, PT, SED, BMPX, FREDA, MG, LD, CRP, FEBC, B12FOL, PTT, C4, CCPAB, FERI, IOCAL, CORTI, CK, C3, REJEC #### [address] [address] Yardage Control Clerk: Jasbir Montalvo MD ALT [Catalytic activity/Vol] 14 U/L Normal 5-41 [facility] Comment on above: Performed By: #### P HO, CDP, RA, PT, SED, BMPX, FREDA, MG, LD, CRP, FEBC, B12FOL, PTT, C4, CCPAB, FERI, IOCAL, CORTI, CK, C3, REJEC #### [facility] [employer] [address] [place] [address] Yard[employer] Control Clerk: Jasbir Montalvo MD Anion gap [Moles/Vol] 11 mmol/L Normal 9-17 [facility] Comment on above: Performed By: #### P HO, CDP, RA, PT, SED, BMPX, FREDA, MG, LD, CRP, FEBC, B12FOL, PTT, C4, CCPAB, FERI, IOCAL, CORTI, CK, C3, REJEC #### [facility] [employer] [address] [place] [address] [phone] Yard[employer] Control Clerk: Jasbir Montalvo MD Bilirubin [Mass/Vol] 0.3 mg/dL Normal 0.3-1.2 [facility] Comment on above: Performed By: #### P HO, CDP, RA, PT, SED, BMPX, FREDA, MG, LD, CRP, FEBC, B12FOL, PTT, C4, CCPAB, FERI, IOCAL, CORTI, CK, C3, REJEC #### [facility] [employer] [address] [place] [address] Yard[employer] Control Clerk: Jasbir Montalvo MD Calcium [Mass/Vol] 8.9 mg/dL Normal 8.6-10.4 [facility] Comment on above: Performed By: #### P HO, CDP, RA, PT, SED, BMPX, FREDA, MG, LD, CRP, FEBC, B12FOL, PTT, C4, CCPAB, FERI, IOCAL, CORTI, CK, C3, REJEC #### [facility] [employer] [address] [place] [address] [phone] Yard[employer] Control Clerk: Jasbir Montalvo MD Chloride [Moles/Vol] 109 mmol/L High 98-107 [facility] Comment on above: Performed By: #### P HO, CDP, RA, PT, SED, BMPX, FREDA, MG, LD, CRP, FEBC, B12FOL, PTT, C4, CCPAB, FERI, IOCAL, CORTI, CK, C3, REJEC #### [address] [phone] [employer] Control Clerk: Jasbir Montalvo MD CO2 [Moles/Vol] 24 mmol/L Normal 20-31 [facility] Comment on above: Performed By: #### P HO, CDP, RA, PT, SED, BMPX, FREDA, MG, LD, CRP, FEBC, B12FOL, PTT, C4, CCPAB, FERI, IOCAL, CORTI, CK, C3, REJEC #### [address] [phone] [employer] Clerk: Jasbir Montalvo MD Creatinine [Mass/Vol] 1.6 mg/dL High 0.7-1.2 [facility] Comment on above: Performed By: #### P HO, CDP, RA, PT, SED, BMPX, FREDA, MG, LD, CRP, FEBC, B12FOL, PTT, C4, CCPAB, FERI, IOCAL, CORTI, CK, C3, REJEC #### [address] [phone] [employer] Clerk: Jasbir Montalvo MD GFR/1.73 sq M.predicted among non-blacks MDRD (S/P/Bld) [Vol rate/Area] 48 mL/min/{1.73_m2} Low >60 [facility] Comment on above: Result Comment: [...] FERI, IOCAL, CORTI, CK, C3, REJEC #### [address] [phone] [employer] Control Clerk: Jasbir Montalvo MD Glucose [Mass/Vol] 151 mg/dL High 70-99 [facility] Comment on above: Performed By: #### P HO, CDP, RA, PT, SED, BMPX, FREDA, MG, LD, CRP, FEBC, B12FOL, PTT, C4, CCPAB, FERI, IOCAL, CORTI, CK, C3, REJEC #### [address] [phone] [employer] Control Clerk: Jasbir Montalvo MD Potassium [Moles/Vol] 4.1 mmol/L Normal 3.7-5.3 [facility] Comment on above: Performed By: #### P HO, CDP, RA, PT, SED, BMPX, FREDA, MG, LD, CRP, FEBC, B12FOL, PTT, C4, CCPAB, FERI, IOCAL, CORTI, CK, C3, REJEC #### [place] [id number] [employer] Control Clerk: Jasbir Montalvo MD Protein [Mass/Vol] 6.5 g/dL Normal 6.4-8.3 [facility] Comment on above: Performed By: #### P HO, CDP, RA, PT, SED, BMPX, FREDA, MG, LD, CRP, FEBC, B12FOL, PTT, C4, CCPAB, FERI, IOCAL, CORTI, CK, C3, REJEC #### [address] [phone] [employer] Control Clerk: Jasbir Montalvo MD Sodium [Moles/Vol] 144 mmol/L Normal 135-144 [facility] Comment on above: Performed By: #### P HO, CDP, RA, PT, SED, BMPX, FREDA, MG, LD, CRP, FEBC, B12FOL, PTT, C4, CCPAB, FERI, IOCAL, CORTI, CK, C3, REJEC #### [address] [address] Yard[employer] Control Clerk: Jasbir Montalvo MD Urea nitrogen [Mass/Vol] 36 mg/dL High 8-23 [facility] Comment on above: Performed By: #### P HO, CDP, RA, PT, SED, BMPX, FREDA, MG, LD, CRP, FEBC, B12FOL, PTT, C4, CCPAB, FERI, IOCAL, CORTI, CK, C3, REJEC #### [facility] [address] [place] [address] Yardage Control Clerk: Jasbir Montalvo MD Comprehensive Metabolic Pane l w/ Reflex to MGon 11-29-2023 Albumin [Mass/Vol] 3.4 g/dL Low 3.5 - 5.2 g/dL [facility] Albumin/Globulin [Mass ratio] 1.1 {ratio} 1.0 - 2.5 [facility] ALP [Catalytic activity/Vol] 93 U/L 40 - 129 U/L [facility] ALT [Catalytic activity/Vol] 14 U/L 5 - 41 U/L [facility] Anion gap [Moles/Vol] 11 mmol/L 9 - 17 mmol/L [facility] AST [Catalytic activity/Vol] 18 U/L NINF - 40 U/L [facility] Bilirubin [Mass/Vol] 0.3 mg/dL 0.3 - 1.2 mg/dL [facility] Calcium [Mass/Vol] 8.9 mg/dL 8.6 - 10. 4 mg/dL [facility] Chloride [Moles/Vol] 109 mmol/L High 98 - 107 mmol/L [facility] CO2 [Moles/Vol] 24 mmol/L 20 - 31 mmol/L [facility] Creatinine [Mass/Vol] 1.6 mg/dL High 0.7 - 1.2 mg/dL [facility] GFR/1.73 sq M.predicted MDRD (S/P/Bld) [Vol rate/Area] 48 mL/min/{1.73_m2} Low - PINF [facility] Comment on above: These results are [...] 151 mg/dL High 70 - 99 mg/dL [facility] Interpretation and review of laboratory results Abnormal [facility] Potassium [Moles/Vol] 4.1 mmol/L 3.7 - 5.3 mmol/L [facility] Protein [Mass/Vol] 6.5 g/dL 6.4 - 8.3 g/dL [facility] Sodium [Moles/Vol] 144 mmol/L 135 - 144 mmol/L [facility] Urea nitrogen [Mass/Vol] 36 mg/dL High 8 - 23 mg/dL [facility] Glucose, Whole Bloodon 11-29 Glucose [Mass/Vol] 169 mg/dL High 74-100 [facility] Glucose [Mass/Vol] 236 mg/dL High 74-100 [facility] Glucose [Mass/Vol] 116 mg/dL High 74-100 [facility] Glucose [Mass/Vol] 123 mg/dL High 74-100 [facility] Glucose [Mass/Vol] 53 mg/dL Low 74-100 [facility] Glucose [Mass/Vol] 62 mg/dL Low 74-100 [facility] Glucose,Whole Bloodon 2023 Glucose [Mass/Vol] 161 mg/dL High 75-110 [facility] POC Glucose Fingerstickon Glucose [Mass/Vol] 161 mg/dL High 75 - 110 mg/dL [facility] Interpretation and review of laboratory results Abnormal [facility] XR CHEST (2 VW)on 11-29-2023 XR CHEST [...] Nathaly Oh MD 11/29/23 Final result Normal [facility] RADHA Screen w/reflexon 2023 RADHA Screen Negative Normal NEG [facility] Comment on above: Performed By: #### A XUAN, GLYHGB, CRP, SED, PE, CDP, TSHX, HIVCMB, CK, ANAX, CP, B12FOL, VD25, AHCV #### [facility] [employer] [address] [place], [place] [phone] [employer] Control Clerk: Jasbir Montalvo MD #### AMYARELI, ALYARP #### [facility] [address] [place] [address] Yardage Control Clerk: Samuel Olivia MD Anti-dsDNA 6.0 IU/mL Normal <10.0 [facility] Comment on above: Result Comment: Reference Range: <10.0 Negative 10.0-15.0 Equivocal >15.0 Positive Performed By: #### A XUAN, GLYHGB, CRP, SED, PE, CDP, TSHX, HIVCMB, CK, ANAX, CP, B12FOL, VD25, AHCV #### [address] [phone] [employer] Clerk: Jasbir Montalvo MD #### PACHECO DUARTE #### [facility] [address] [place], [place] [phone] Yardage Control Clerk: Samuel Olivia MD XUAN Screen 0.2 U/mL Normal <0.7 [facility] Comment on above: Result Comment: Reference Range: <0.7 Negative 0.7-1.0 Equivocal >1.0 Positive XUAN Screen includes U1RNP,RNP70,Sm,Ro(SS-A),La(SS-B),CENP,Scl-70,Carolina-1 Performed By: #### A XUAN, GLYHGB, CRP, SED, PE, CDP, TSHX, HIVCMB, CK, ANAX, CP, B12FOL, VD25, AHCV #### [address] [phone] Yard[employer] Control Clerk: Jasbir Montalvo MD ###PACHECO HAN #### [address] [address] Yardage Control Clerk: Samuel Olivia MD Ammoniaon 5575 Ammonia (P) [Mass/Vol] ug/dL Low 16-60 [facility] Comment on above: Performed By: #### A MON ####[facility] [place] [address] Lab Director: Marlon Mack MD Anti-Extract Nuc Agon 2023 Anti-RNP70 0.4 U/mL Normal <7.0 [facility] Comment on above: Result Comment: Reference Range: <7.0 Negative 7.0-10.0 Equivocal >10.0 Positive Performed By: #### A XUAN, GLYHGB, CRP, SED, PE, CDP, TSHX, HIVCMB, CK, ANAX, CP, B12FOL, VD25, AHCV #### [address] [address] Yardage Control Clerk: Jasbir Montalvo MD #### PACHECO DUARTE #### [address] [address] Yardage Control Clerk: Samuel Olivia MD Anti-Scleroderma <0.6 Normal <7.0 [facility] Comment on above: Result Comment: Reference Range: <7.0 Negative 7.0-10.0 Equivocal >10.0 Positive Performed By: #### A XUAN, GLYHGB, CRP, SED, PE, CDP, TSHX, HIVCMB, CK, ANAX, CP, B12FOL, VD25, AHCV #### [address] [address] Yardage Control Clerk: Jasbir Montalvo MD #### PACHECO DUARTE #### [address] [address] Yardage Control Clerk: Samuel Olivia MD Anti-Sm 2.0 U/mL Normal <7.0 [facility] Comment on above: Result Comment: Reference Range: <7.0 Negative 7.0-10.0 Equivocal >10.0 Positive Performed By: #### A XUAN, GLYHGB, CRP, SED, PE, CDP, TSHX, HIVCMB, CK, ANAX, CP, B12FOL, VD25, AHCV #### [address] [address] Yardage Control Clerk: Jasbir Montalvo MD #### ASHVIN DUARTERP #### [facility] [address] [place] [address] Yardage Control Clerk: Samuel Olivia MD SSA 0.5 U/mL Normal <7.0 [facility] Comment on above: Result Comment: Reference Range: <7.0 Negative 7.0-10.0 Equivocal >10.0 Positive Performed By: #### A XUAN, GLYHGB, CRP, SED, PE, CDP, TSHX, HIVCMB, CK, ANAX, CP, B12FOL, VD25, AHCV #### [address] [id number] Yardage Control Clerk: Jasbir Montalvo MD #### ASHVIN DUARTERP #### [facility] [address] [place], [place] [id number] Yardage Control Clerk: Samuel Olivia MD SSB <0.3 Normal <7.0 [facility] Comment on above: Result Comment: Reference Range: <7.0 Negative 7.0-10.0 Equivocal >10.0 Positive Performed By: #### A XUAN, GLYHGB, CRP, SED, PE, CDP, TSHX, HIVCMB, CK, ANAX, CP, B12FOL, VD25, AHCV #### [address] [id number] Yardage Control Clerk: Jasbir Montalvo MD #### ASHVIN DUARTERP #### [facility] [address] [place] [address] Yardage Control Clerk: Samuel Olivia MD Basic Metabolic Profon 11-28 Anion gap [Moles/Vol] 9 mmol/L Normal 06-22 [facility] Comment on above: Performed By: #### B MP, MG, CDP, TROPI #### [facility] [address] [place] [address] Yardage Control Clerk: Marlon Mack MD BUN/CRE Ratio 16 Normal 06-25 [facility] Comment on above: Performed By: #### B MP, MG, CDP, TROPI #### [facility] [address] [place] [address] Yardage Control Clerk: Marlon Mack MD Calcium [Mass/Vol] 9.1 mg/dL Normal 8.6-10.4 [facility] Comment on above: Performed By: #### B MP, MG, CDP, TROPI #### [facility] [address] [place] [address] Yardage Control Clerk: Marlon Mack MD Chloride [Moles/Vol] 107 mmol/L Normal 98-107 [facility] Comment on above: Performed By: #### B MP, MG, CDP, TROPI #### [facility] [address] [place] [address] Yardage Control Clerk: Marlon Mack MD CO2 [Moles/Vol] 27 mmol/L Normal 20-31 [facility] Comment on above: Performed By: #### B MP, MG, CDP, TROPI #### [facility] [address] [place] [address] Yardage Control Clerk: Marlon Mack MD Creatinine [Mass/Vol] 1.8 mg/dL High 0.7-1.2 [facility] Comment on above: Performed By: #### B MP, MG, CDP, TROPI #### [facility] [address] [place] [address] [employer]age Control Clerk: Marlon Mack MD GFR/1.73 sq M.predicted among non-blacks MDRD (S/P/Bld) [Vol rate/Area] 42 mL/min/{1.73_m2} Low >60 [facility] Comment on above: Result Comment: [...] #### B MP, MG, CDP, TROPI #### [facility] [address] [place] [address] [place] [place], [place] [id number] [employer] Control Clerk: Marlon Mack MD Glucose [Mass/Vol] 77 mg/dL Normal 70-99 [facility] Comment on above: Performed By: #### B MP, MG, CDP, TROPI #### [facility] [address] [place] [address] [place], [place] [id number] [employer] Control Clerk: Marlon Mack MD Potassium [Moles/Vol] 3.9 mmol/L Normal 3.7-5.3 [facility] Comment on above: Performed By: #### B MP, MG, CDP, TROPI #### [address] [place], [place] [id number] [employer] Control Clerk: Marlon Mack MD Sodium [Moles/Vol] 143 mmol/L Normal 135-144 [facility] Comment on above: Performed By: #### B MP, MG, CDP, TROPI #### [address] [place], [place] [id number] [employer] Control Clerk: Marlon Mack MD Urea nitrogen [Mass/Vol] 29 mg/dL High -23 [facility] Comment on above: Performed By: #### B MP, MG, CDP, TROPI #### [address] [place], [place] [id number] [employer] Control Clerk: Marlon Mack MD CBC with Diffon 11-28-2023 Abs. Basophil 0.06 k/uL Normal 0.00-0.20 [facility] Comment on above: Performed By: #### B MP, MG, CDP, TROPI #### [address] [place] [address] [employer] Control Clerk: Marlon Mack MD Abs.Imm.Granulocyte 0.04 k/uL Normal 0.00-0.30 [facility] Comment on above: Performed By: #### B MP, MG, CDP, TROPI #### [address] [place] [address] [employer] Control Clerk: Marlon Mack MD Abs.Neutrophil (Seg) 6.33 k/uL Normal 1.50-8.10 [facility] Comment on above: Performed By: #### B MP, MG, CDP, TROPI #### [address] [place], [place] [id number] [employer] Clerk: Marlon Mack MD Basophils/100 WBC (Bld) 1 % Normal 0-2 [facility] Comment on above: Performed By: #### B MP, MG, CDP, TROPI #### [address] [place] [id number] Yardage Control Clerk: Marlon Mack MD Eosinophils (Bld) [#/Vol] 0.25 10*3/uL Normal 0.00-0.44 [facility] Comment on above: Performed By: #### B MP, MG, CDP, TROPI #### [address] [place], [facility]83 Yardage Control Clerk: Marlon Mack MD Eosinophils/100 WBC (Bld) 3 % Normal 1-4 [facility] Comment on above: Performed By: #### B MP, MG, CDP, TROPI #### [address] [place]ung, [facility]83 Yardage Control Clerk: Marlon Mack MD Immature granulocytes/100 WBC (Bld) 0 % Normal 0 [facility] Comment on above: Performed By: #### B MP, MG, CDP, TROPI #### [address] [place], [place] [id number] Yardage Control Clerk: Marlon Mack MD Lymphocytes (Bld) [#/Vol] 2.23 10*3/uL Normal 1.10-3.70 [facility] Comment on above: Performed By: #### B MP, MG, CDP, TROPI #### [address] [place]ung, [facility]83 Yardage Control Clerk: Marlon Mack MD Lymphocytes/100 WBC (Bld) 23 % Low 24-43 [facility] Comment on above: Performed By: #### B MP, MG, CDP, TROPI #### [facility] [address] [place] [address] Dr. [place]ung, [place] [id number] Yardage Control Clerk: Marlon Mack MD Monocytes (Bld) [#/Vol] 0.64 10*3/uL Normal 0.10-1.20 [facility] Comment on above: Performed By: #### B MP, MG, CDP, TROPI #### [address] [place]ung, [place] [address] Yardage Control Clerk: Marlon Mack MD Monocytes/100 WBC (Bld) 7 % Normal 3-12 [facility] Comment on above: Performed By: #### B MP, MG, CDP, TROPI #### [address] [place]ung, [facility]83 Yardage Control Clerk: Marlon Mack MD Neutrophil (Seg) 66 % High 36-65 [facility] Comment on above: Performed By: #### B MP, MG, CDP, TROPI #### [address] [place]ung, [facility]83 Yardage Control Clerk: Marlon Mack MD Erythrocyte distribution width (RBC) [Ratio] 14.0 % Normal 11.8-14.4 [facility] Comment on above: Performed By: #### B MP, MG, CDP, TROPI #### [address] [place]ung, [facility]83 Yardage Control Clerk: Marlon Mack MD Hematocrit (Bld) [Volume fraction] 48.5 % Normal 40.7-50.3 [facility] Comment on above: Performed By: #### B MP, MG, CDP, TROPI #### [facility] [address] [place] [address] Dr. Chung, [facility]83 Yardage Control Clerk: Marlon Mack MD Hemoglobin (Bld) [Mass/Vol] 15.9 g/dL Normal 13.0-17.0 [facility] Comment on above: Performed By: #### B MP, MG, CDP, TROPI #### [address] [place] [address] Yardage Control Clerk: Marlon Mack MD MCH (RBC) [Entitic mass] 31.2 pg Normal 25.2-33.5 [facility] Comment on above: Performed By: #### B MP, MG, CDP, TROPI #### [address] [place] [address] Yardage Control Clerk: Marlon Mack MD MCHC (RBC) [Mass/Vol] 32.8 g/dL Normal 28.4-34.8 [facility] Comment on above: Performed By: #### B MP, MG, CDP, TROPI #### [address] [place] [address] Yardage Control Clerk: Marlon Mcak MD MCV (RBC) [Entitic vol] 95.3 fL Normal 82.6-102.9 [facility] Comment on above: Performed By: #### B MP, MG, CDP, TROPI #### [address] [place] [address] Yardage Control Clerk: Marlon Mack MD NRBC Automated 0.0 per 100 WBC Normal 0.0 [facility] Comment on above: Performed By: #### B MP, MG, CDP, TROPI #### [address] [place] [address] Yardage Control Clerk: Marlon Mack MD Platelet mean volume (Bld) [Entitic vol] 9.9 fL Normal 8.1-13.5 [facility] Comment on above: Performed By: #### B MP, MG, CDP, TROPI #### [address] [place], [place] 0644383 Yardage Control Clerk: Marlon Mack MD Platelets (Bld) [#/Vol] 233 10*3/uL Normal 138-453 [facility] Comment on above: Performed By: #### B MP, MG, CDP, TROPI #### [facility] [address] [place], [place] [id number] Yardage Control Clerk: Marlon Mack MD RBC (Bld) [#/Vol] 5.09 10*6/uL Normal 4.21-5.77 [facility] Comment on above: Performed By: #### B MP, MG, CDP, TROPI #### [facility] [address] [place], [place] [id number] Yardage Control Clerk: Marlon Mack MD WBC (Bld) [#/Vol] 9.2 10*3/uL Normal 3.5-11.3 [facility] Comment on above: Performed By: #### B MP, MG, CDP, TROPI #### [facility] [address] [place], [place] [id number] Yardage Control Clerk: Marlon Mack MD Glucose, Whole Bloodon 11-28 Glucose [Mass/Vol] 115 mg/dL High 74-100 [facility] Glucose [Mass/Vol] 81 mg/dL Normal 74-100 [facility] Magnesiumon 11-28-2023 Magnesium [Mass/Vol] 2.5 mg/dL Normal 1.6-2.6 [facility] Comment on above: Performed By: #### B MP, MG, CDP, TROPI #### [facility] [address] [place] [address] Yardage Control Clerk: Marlon Mack MD Myasthenia Grav Pnlon 2023 Acetylchol Bind Ab 0.0 nmol/L Normal 0.0-0.4 [facility] Comment on above: Result Comment: (NOT [...] developed and its performance characteristics determined by [facility]. It has not been cleared or approved by the [place] Food and Drug Administration. This test was performed in a CLIA certified laboratory and is intended for clinical purposes. Performed By: #### A XUAN, GLYHGB, CRP, SED, PE, CDP, TSHX, HIVCMB, CK, ANAX, CP, B12FOL, VD25, AHCV #### [facility] [employer] [facility] [place] [address] Yardage Control Clerk: Jasbir Montalvo MD #### PACHECO DUARTE #### [facility] [address] [place] [address] Yardage Control Clerk: Samuel Olivia MD Acetylchol Block Ab 0 % Normal 0-26 [facility] Comment on above: Result Comment: (NOT [...] developed and its performance characteristics determined by [facility]. It has not been cleared or approved by the [place] Food and Drug Administration. This test was performed in a CLIA certified laboratory and is intended for clinical purposes. Performed By: #### A XUAN, GLYHGB, CRP, SED, PE, CDP, TSHX, HIVCMB, CK, ANAX, CP, B12FOL, VD25, AHCV #### [address] [id number] Yardage Control Clerk: Jasbir Montalvo MD #### PACHECO DUARTE #### [address] [address] Yardage Control Clerk: Samuel Olivia MD Striated Musc Ab IgG <1:40 Normal <1:40 [facility] Comment on above: Result Comment: (NOT [...] developed and its performance characteristics determined by [facility]. It has not been cleared or approved by the [place] Food and Drug Administration. This test was performed in a CLIA certified laboratory and is intended for clinical purposes. Performed By: #### A XUAN, GLYHGB, CRP, SED, PE, CDP, TSHX, HIVCMB, CK, ANAX, CP, B12FOL, VD25, AHCV #### [facility] [place], [place] [id number] Yardage Control Clerk: Jasbir Montalvo MD #### PACHECO DUARTE #### [facility] [address] [place] [address] Yardage Control Clerk: Samuel Olivia MD Titin Antibody 0.35 IV Normal 0.00-0.45 [facility] Comment on above: Result Comment: (NOT [...] developed and its performance characteristics determined by [facility]. It has not been cleared or approved by the [place] Food and Drug Administration. This test was performed in a CLIA certified laboratory and is intended for clinical purposes. Performed By: [facility] [address] [place] [address] Welding Machine Operator [employer]: Uriah Prasad MD, PhD CLIA Number: [id number] Performed By: #### A XUAN, GLYHGB, CRP, SED, PE, CDP, TSHX, HIVCMB, CK, ANAX, CP, B12FOL, VD25, AHCV #### [address] [id number] Yardage Control Clerk: Jasbir Montalvo MD #### PACHECO DUARTE #### [facility] [address] [place] [address] Yardage Control Clerk: Samuel Olivia MD Thyroid Stim. Horm.on 2023 Thyroid Stim. Horm. 0.43 uIU/mL Normal 0.30-5.00 [facility] Comment on above: Performed By: #### T SH #### [facility] [address] [place] [address] [place] [address] Yardage Control Clerk: Marlon Mack MD Troponinon 11-28-2023 Troponin, High Sens 25 ng/L High 0-22 [facility] Comment on above: Result Comment: High Sensitivity Troponin values cannot be compared with other Troponin methodologies. Performed By: #### T ROPI #### [facility] [address] [place] [address] Yardage Control Clerk: Marlon Mack MD Troponin, High Sens 24 ng/L High 0-22 [facility] Comment on above: Result Comment: High Sensitivity Troponin values cannot be compared with other Troponin methodologies. Performed By: #### B MP, MG, CDP, TROPI #### [facility] [address] [place] [address] Yardage Control Clerk: Marlon Mack MD Lyme Dis Rflex Pnlon 024 B burgdorferi Abs, Total 0.37 IV Normal <=0.90 [facility] Comment on above: Result Comment: (NOT [...] antibodies to B. burgdorferi detected. Performed By: [facility] [address] [place] [address] Welding Machine Operator [employer]: Uriah Prasad MD, PhD CLIA Number: [id number] Performed By: #### A XUAN, GLYHGB, CRP, SED, PE, CDP, TSHX, HIVCMB, CK, ANAX, CP, B12FOL, VD25, AHCV #### [employer] [address] [place] [address] Yardage Control Clerk: Jasbir Montalvo MD #### AMGE, ALYARP #### [facility] [address] [place], [place] [id number] Yardage Control Clerk: Samuel Olivia MD Prot. Electroph, Blon 2023 Pathologist Review: Reviewed by patholog ist: Shirley Fernando M.D. Normal [facility] Comment on above: Performed By: #### A XUAN, GLYHGB, CRP, SED, PE, CDP, TSHX, HIVCMB, CK, ANAX, CP, B12FOL, VD25, AHCV #### [facility] [address] [place] [address] Yardage Control Clerk: Jasbir Montalvo MD #### PACHECO DUARTE #### [facility] [address] [place], [place] [id number] Yardage Control Clerk: Samuel Olivia MD Prot. Elect-Interp NORMAL ELECTROPHORET IC PATTERN Normal [facility] Comment on above: Performed By: #### A XUAN, GLYHGB, CRP, SED, PE, CDP, TSHX, HIVCMB, CK, ANAX, CP, B12FOL, VD25, AHCV #### [address] [address] Yardage Control Clerk: Jasbir Montalvo MD #### PACHECO DUARTE #### [facility] [address] [place], [place] [id number] Yardage Control Clerk: Samuel Olivia MD B12/Folate Panelon 4 Folic Acid 7.4 ng/mL Normal 4.8-24.2 [facility] Comment on above: Performed By: #### A XUAN, GLYHGB, CRP, SED, PE, CDP, TSHX, HIVCMB, CK, ANAX, CP, B12FOL, VD25, AHCV #### [address] [address] Yardage Control Clerk: Jasbir Montalvo MD #### ASHVIN DUARTERP #### [facility] [address] [place], [place] [id number] Yardage Control Clerk: Samuel Olivia MD Prot. Electroph, Blon 2023 Albumin [Mass/Vol] 4.2 g/dL Normal 3.2-5.2 [facility] Comment on above: Performed By: #### A XUAN, GLYHGB, CRP, SED, PE, CDP, TSHX, HIVCMB, CK, ANAX, CP, B12FOL, VD25, AHCV #### [facility] [address] [place] [address] Yardage Control Clerk: Jasbir Montalvo MD #### GERALD ALYARP #### [facility] [address] [place], [place] [id number] Yardage Control Clerk: Samuel Olivia MD Albumin, % 59 % Normal 45-65 [facility] Comment on above: Performed By: #### A XUAN, GLYHGB, CRP, SED, PE, CDP, TSHX, HIVCMB, CK, ANAX, CP, B12FOL, VD25, AHCV #### [facility] [address] [place] [id number] Yardage Control Clerk: Jasbir Montalvo MD #### ASHVIN DUARTERP #### [facility] [address] [place], [place] [id number] Yardage Control Clerk: Samuel Olivia MD Ssbvj-0-bodqdhmnu 0.2 g/dL Normal 0.1-0.4 [facility] Comment on above: Performed By: #### A XUAN, GLYHGB, CRP, SED, PE, CDP, TSHX, HIVCMB, CK, ANAX, CP, B12FOL, VD25, AHCV #### [facility] [address] [place] [id number] Yardage Control Clerk: Jasbir Montalvo MD #### GERALD ALYARP #### [facility] [address] [place], [place] [id number] Yardage Control Clerk: Samuel Olivia MD Tvxqp-[id number],% 3 % Normal 3-6 [facility] Comment on above: Performed By: #### A XUAN, GLYHGB, CRP, SED, PE, CDP, TSHX, HIVCMB, CK, ANAX, CP, B12FOL, VD25, AHCV #### [address] [address] Yardage Control Clerk: Jasbir Montalvo MD #### ASHVIN DUARTERP #### [facility] [address] [place], [place] [id number] Yardage Control Clerk: aSmuel Olivia MD Vcift-6-ahuttxgne 0.9 g/dL Normal 0.5-0.9 [facility] Comment on above: Performed By: #### A XUAN, GLYHGB, CRP, SED, PE, CDP, TSHX, HIVCMB, CK, ANAX, CP, B12FOL, VD25, AHCV #### [address] [address] Yardage Control Clerk: Jasbir Montalvo MD #### PACHECO DUARTE #### [facility] [address] [place] [address] Yardage Control Clerk: Samuel Olivia MD Vunsl-4-gnjdaivcq,% 13 % Normal 6-13 [facility] Comment on above: Performed By: #### A XUAN, GLYHGB, CRP, SED, PE, CDP, TSHX, HIVCMB, CK, ANAX, CP, B12FOL, VD25, AHCV #### [address] [address] Yardage Control Clerk: Jasbir Montalvo MD #### PACHECO DUARTE #### [facility] [address] [place] [address] Yardage Control Clerk: Samuel Olivia MD Beta-globulins 0.8 g/dL Normal 0.5-1.1 [facility] Comment on above: Performed By: #### A XUAN, GLYHGB, CRP, SED, PE, CDP, TSHX, HIVCMB, CK, ANAX, CP, B12FOL, VD25, AHCV #### [address] [address] Yardage Control Clerk: Jasbir Montalvo MD #### ASHVIN DUARTERP #### [address] [id number] Yardage Control Clerk: Samuel Olivia MD Beta-globulins,% 11 % Normal 11-19 [facility] Comment on above: Performed By: #### A XUAN, GLYHGB, CRP, SED, PE, CDP, TSHX, HIVCMB, CK, ANAX, CP, B12FOL, VD25, AHCV #### [place] [address] Yardage Control Clerk: Jasbir Montalvo MD #### PACHECO DUARTE #### [address] [address] Yardage Control Clerk: Samuel Olivia MD Gamma-globulins 1.0 g/dL Normal 0.5-1.5 [facility] Comment on above: Performed By: #### A XUAN, GLYHGB, CRP, SED, PE, CDP, TSHX, HIVCMB, CK, ANAX, CP, B12FOL, VD25, AHCV #### [place] [address] Yardage Control Clerk: Jasbir Montalvo MD #### ASHVIN DUARTERP #### [address] [address] Yardage Control Clerk: Samuel Olivia MD Gamma-globulins,% 14 % Normal 9-20 [facility] Comment on above: Performed By: #### A XUAN, GLYHGB, CRP, SED, PE, CDP, TSHX, HIVCMB, CK, ANAX, CP, B12FOL, VD25, AHCV #### [address] [address] Yardage Control Clerk: Jasbir Montalvo MD #### PACHECO DUARTE #### [facility] [address] [place] [address] Yardage Control Clerk: Samuel Olivia MD Total Prot. Sum 7.1 g/dL Normal 6.3-8.2 [facility] Comment on above: Performed By: #### A XUAN, GLYHGB, CRP, SED, PE, CDP, TSHX, HIVCMB, CK, ANAX, CP, B12FOL, VD25, AHCV #### [address] [address] Yardage Control Clerk: Jasbir Montalvo MD #### PACHECO DUARTE #### [facility] [address] [place] [address] Yardage Control Clerk: Samuel Olivia MD Total Prot. Sum,% 100 % Normal 98-102 [facility] Comment on above: Performed By: #### A XUAN, GLYHGB, CRP, SED, PE, CDP, TSHX, HIVCMB, CK, ANAX, CP, B12FOL, VD25, AHCV #### [address] [address] Yardage Control Clerk: Jasbir Montalvo MD #### PACHECO DUARTE #### [facility] [address] [place] [address] Yardage Control Clerk: Samuel Olivia MD B12/Folate Panelon 4 Cobalamin (Vitamin B12) [Mass/Vol] 577 pg/mL Normal 232-1245 [facility] Comment on above: Performed By: #### A XUAN, GLYHGB, CRP, SED, PE, CDP, TSHX, HIVCMB, CK, ANAX, CP, B12FOL, VD25, AHCV #### [address] [id number] Yardage Control Clerk: Jasbir Montalvo MD #### PACHECO DUARTE #### [facility] [address] [place] [address] Yardage Control Clerk: Samuel Olivia MD C-Reactive Proteinon 024 CRP [Mass/Vol] 20.1 mg/L High 0.0-5.0 [facility] Comment on above: Performed By: #### A XUAN, GLYHGB, CRP, SED, PE, CDP, TSHX, HIVCMB, CK, ANAX, CP, B12FOL, VD25, AHCV #### [place] [address] Yardage Control Clerk: Jasbir Montalvo MD #### PACHECO DUARTE #### [address] [address] Yardage Control Clerk: Samuel Olivia MD CBC with Diffon 11-25-2023 Abs. Basophil 0.09 k/uL Normal 0.00-0.20 [facility] Comment on above: Performed By: #### A XUAN, GLYHGB, CRP, SED, PE, CDP, TSHX, HIVCMB, CK, ANAX, CP, B12FOL, VD25, AHCV #### [place] [id number] Yardage Control Clerk: Jasbir Montalvo MD #### PACHECO DUARTE #### [facility] [address] [place] [address] Yardage Control Clerk: Samuel Olivia MD Abs.Imm.Granulocyte 0.05 k/uL Normal 0.00-0.30 [facility] Comment on above: Performed By: #### A XUAN, GLYHGB, CRP, SED, PE, CDP, TSHX, HIVCMB, CK, ANAX, CP, B12FOL, VD25, AHCV #### [address] [id number] Yardage Control Clerk: Jasbir Montalvo MD #### ASHVIN DUARTERP #### [facility] [address] [place] [address] Yardage Control Clerk: Samuel Olivia MD Abs.Neutrophil (Seg) 7.53 k/uL Normal 1.50-8.10 [facility] Comment on above: Performed By: #### A XUAN, GLYHGB, CRP, SED, PE, CDP, TSHX, HIVCMB, CK, ANAX, CP, B12FOL, VD25, AHCV #### [facility] [address] [place], [place] [id number] Yardage Control Clerk: Jasbir Montalvo MD #### ASHVIN DUARTERP #### [facility] [address] [place] [address] Yardage Control Clerk: Samuel Olivia MD Basophils/100 WBC (Bld) 1 % Normal 0-2 [facility] Comment on above: Performed By: #### A XUAN, GLYHGB, CRP, SED, PE, CDP, TSHX, HIVCMB, CK, ANAX, CP, B12FOL, VD25, AHCV #### [place] [address] Yardage Control Clerk: Jasbir Montalvo MD #### PACHECO DUARTE #### [facility] [address] [place] [address] Yardage Control Clerk: Samuel Olivia MD Eosinophils (Bld) [#/Vol] 0.39 10*3/uL Normal 0.00-0.44 [facility] Comment on above: Performed By: #### A XUAN, GLYHGB, CRP, SED, PE, CDP, TSHX, HIVCMB, CK, ANAX, CP, B12FOL, VD25, AHCV #### [facility] [address] [place] [address] Yardage Control Clerk: Jasbir Montalvo MD #### AMGE, ALYARP #### [facility] [address] [place] [address] Yardage Control Clerk: Samuel Olivia MD Eosinophils/100 WBC (Bld) 3 % Normal 1-4 [facility] Comment on above: Performed By: #### A XUAN, GLYHGB, CRP, SED, PE, CDP, TSHX, HIVCMB, CK, ANAX, CP, B12FOL, VD25, AHCV #### [address] [id number] Yardage Control Clerk: Jasbir Montalvo MD #### GERALD, ALYARP #### [facility] [address] [place], [place] [id number] Yardage Control Clerk: Samuel Olivia MD Erythrocyte distribution width (RBC) [Ratio] 14.6 % High 11.8-14.4 [facility] Comment on above: Performed By: #### A XUAN, GLYHGB, CRP, SED, PE, CDP, TSHX, HIVCMB, CK, ANAX, CP, B12FOL, VD25, AHCV #### [address] [id number] Yardage Control Clerk: Jasbir Montalvo MD #### ASHVIN DUARTERP #### [facility] [address] [place], [place] [id number] Yardage Control Clerk: Samuel Olivia MD Hematocrit (Bld) [Volume fraction] 49.2 % Normal 40.7-50.3 [facility] Comment on above: Performed By: #### A XUAN, GLYHGB, CRP, SED, PE, CDP, TSHX, HIVCMB, CK, ANAX, CP, B12FOL, VD25, AHCV #### [address] [address] Yardage Control Clerk: Jasbir Montalvo MD #### GERALD ALYARP #### [facility] [address] [place], [place] [id number] Yardage Control Clerk: Samuel Olivia MD Hemoglobin (Bld) [Mass/Vol] 15.6 g/dL Normal 13.0-17.0 [facility] Comment on above: Performed By: #### A XUAN, GLYHGB, CRP, SED, PE, CDP, TSHX, HIVCMB, CK, ANAX, CP, B12FOL, VD25, AHCV #### [address] [address] Yardage Control Clerk: Jasbir Montalvo MD #### ASHVIN DUARTERP #### [facility] [address] [place] [address] Yardage Control Clerk: Samuel Olivia MD Immature granulocytes/100 WBC (Bld) 0 % Normal 0 [facility] Comment on above: Performed By: #### A XUAN, GLYHGB, CRP, SED, PE, CDP, TSHX, HIVCMB, CK, ANAX, CP, B12FOL, VD25, AHCV #### [address] [address] Yardage Control Clerk: Jasbir Montalvo MD #### PACHECO DUARTE #### [facility] [address] [place] [id number] Yardage Control Clerk: Samuel Olivia MD Lymphocytes (Bld) [#/Vol] 3.13 10*3/uL Normal 1.10-3.70 [facility] Comment on above: Performed By: #### A XUAN, GLYHGB, CRP, SED, PE, CDP, TSHX, HIVCMB, CK, ANAX, CP, B12FOL, VD25, AHCV #### [address] [address] Yardage Control Clerk: Jasbir Montalvo MD #### ASHVIN DUARTERP #### [facility] [address] [place] [address] Yardage Control Clerk: Samuel Olivia MD Lymphocytes/100 WBC (Bld) 26 % Normal 24-43 [facility] Comment on above: Performed By: #### A XUAN, GLYHGB, CRP, SED, PE, CDP, TSHX, HIVCMB, CK, ANAX, CP, B12FOL, VD25, AHCV #### [address] [address] Yardage Control Clerk: Jasbir Montlavo MD #### ASHVIN DUARTERP #### [facility] [address] [place], [place] [id number] Yardage Control Clerk: Samuel Olivia MD MCH (RBC) [Entitic mass] 31.0 pg Normal 25.2-33.5 [facility] Comment on above: Performed By: #### A XUAN, GLYHGB, CRP, SED, PE, CDP, TSHX, HIVCMB, CK, ANAX, CP, B12FOL, VD25, AHCV #### [address] [address] Yardage Control Clerk: Jasbir Montalvo MD #### PACHECO DUARTE #### [facility] [address] [place] [address] Yardage Control Clerk: Samuel Olivia MD MCHC (RBC) [Mass/Vol] 31.7 g/dL Normal 28.4-34.8 [facility] Comment on above: Performed By: #### A XUAN, GLYHGB, CRP, SED, PE, CDP, TSHX, HIVCMB, CK, ANAX, CP, B12FOL, VD25, AHCV #### [address] [address] Yardage Control Clerk: Jasbir Montalvo MD #### ASHVIN DUARTERP #### [facility] [address] [place] [address] Yardage Control Clerk: Samuel Olivia MD MCV (RBC) [Entitic vol] 97.8 fL Normal 82.6-102.9 [facility] Comment on above: Performed By: #### A XUAN, GLYHGB, CRP, SED, PE, CDP, TSHX, HIVCMB, CK, ANAX, CP, B12FOL, VD25, AHCV #### [place] [address] Yardage Control Clerk: Jasbir Montalvo MD #### ASHVIN DUARTERP #### [facility] [address] [place] [id number] Yardage Control Clerk: Samuel Olivia MD Monocytes (Bld) [#/Vol] 0.65 10*3/uL Normal 0.10-1.20 [facility] Comment on above: Performed By: #### A XUAN, GLYHGB, CRP, SED, PE, CDP, TSHX, HIVCMB, CK, ANAX, CP, B12FOL, VD25, AHCV #### [place] [address] Yardage Control Clerk: Jasbir Montalvo MD #### ASHVIN DUARTERP #### [facility] [address] [place] [address] [phone] Yardage Control Clerk: Samuel Olivia MD Monocytes/100 WBC (Bld) 6 % Normal 3-12 [facility] Comment on above: Performed By: #### A XUAN, GLYHGB, CRP, SED, PE, CDP, TSHX, HIVCMB, CK, ANAX, CP, B12FOL, VD25, AHCV #### [place] [address] Yardage Control Clerk: Jasbir Montalvo MD #### ASHVIN DUARTERP #### [facility] [address] [place], [place] [id number] Yardage Control Clerk: Samuel Olivia MD Neutrophil (Seg) 64 % Normal 36-65 [facility] Comment on above: Performed By: #### A XUAN, GLYHGB, CRP, SED, PE, CDP, TSHX, HIVCMB, CK, ANAX, CP, B12FOL, VD25, AHCV #### [address] [address] Yardage Control Clerk: Jasbir Montalvo MD #### PACHECO DUARTE #### [facility] [address] [place], [place] [id number] Yardage Control Clerk: Samuel Olivia MD NRBC Automated 0.0 per 100 WBC Normal 0.0 [facility] Comment on above: Performed By: #### A XUAN, GLYHGB, CRP, SED, PE, CDP, TSHX, HIVCMB, CK, ANAX, CP, B12FOL, VD25, AHCV #### [place] [address] Yardage Control Clerk: Jasbir Montalvo MD #### PACHECO DUARTE #### [facility] [address] [place] [address] Yardage Control Clerk: Samuel Olivia MD Platelet mean volume (Bld) [Entitic vol] 10.5 fL Normal 8.1-13.5 [facility] Comment on above: Performed By: #### A XUAN, GLYHGB, CRP, SED, PE, CDP, TSHX, HIVCMB, CK, ANAX, CP, B12FOL, VD25, AHCV #### [address] [address] Yardage Control Clerk: Jasbir Montalvo MD #### PACHECO DUARTE #### [facility] [address], [place] [id number] Yardage Control Clerk: Samuel Olivia MD Platelets (Bld) [#/Vol] 251 10*3/uL Normal 138-453 [facility] Comment on above: Performed By: #### A XUAN, GLYHGB, CRP, SED, PE, CDP, TSHX, HIVCMB, CK, ANAX, CP, B12FOL, VD25, AHCV #### [address] [address] Yardage Control Clerk: Jasbir Montalvo MD #### ASHVIN DUARTERP #### [facility] [address], [place] [id number] Yardage Control Clerk: Samuel Olivia MD RBC (Bld) [#/Vol] 5.03 10*6/uL Normal 4.21-5.77 [facility] Comment on above: Performed By: #### A XUAN, GLYHGB, CRP, SED, PE, CDP, TSHX, HIVCMB, CK, ANAX, CP, B12FOL, VD25, AHCV #### [place] [address] Yardage Control Clerk: Jabsir Montalvo MD #### ASHVIN DUARTERP #### [facility] [address] [place] [address] Yardage Control Clerk: Samuel Olivia MD RBC morphology finding Nom (Bld) ANISOCYTOSIS PRESENT Normal [facility] Comment on above: Performed By: #### A XUAN, GLYHGB, CRP, SED, PE, CDP, TSHX, HIVCMB, CK, ANAX, CP, B12FOL, VD25, AHCV #### [place] [address] Yardage Control Clerk: Jasbir Montalvo MD #### PACHECO DUARTE #### [facility] [address] [place] [address] Yardage Control Clerk: Samuel Olivia MD WBC (Bld) [#/Vol] 11.8 10*3/uL High 3.5-11.3 [facility] Comment on above: Performed By: #### A XUAN, GLYHGB, CRP, SED, PE, CDP, TSHX, HIVCMB, CK, ANAX, CP, B12FOL, VD25, AHCV #### [place] [address] Yardage Control Clerk: Jasbir Montalvo MD #### GERALD ALROSIERP #### [facility] [address], [place] [id number] Yardage Control Clerk: Samuel Olivia MD Comp Metabolic Profon 2023 Albumin [Mass/Vol] 4.0 g/dL Normal 3.5-5.2 [facility] Comment on above: Performed By: #### A XUAN, GLYHGB, CRP, SED, PE, CDP, TSHX, HIVCMB, CK, ANAX, CP, B12FOL, VD25, AHCV #### [facility] [address] [place] [address] Yardage Control Clerk: Jasbir Montalvo MD #### GERALD ALROSIERP #### [facility] [address], [place] [id number] Yardage Control Clerk: Samuel Olivia MD Albumin/Glob Ratio 1.2 Normal 1.0-2.5 [facility] Comment on above: Performed By: #### A XUAN, GLYHGB, CRP, SED, PE, CDP, TSHX, HIVCMB, CK, ANAX, CP, B12FOL, VD25, AHCV #### [address] [address] Yardage Control Clerk: Jasbir Montalvo MD #### ASHVIN DUARTERP #### [facility] [address], [place] [id number] Yardage Control Clerk: Samuel Olivia MD Alkaline Phos 112 U/L Normal 40-129 [facility] Comment on above: Performed By: #### A XUAN, GLYHGB, CRP, SED, PE, CDP, TSHX, HIVCMB, CK, ANAX, CP, B12FOL, VD25, AHCV #### [facility] [address] [place] [address] Yardage Control Clerk: Jasbir Montalvo MD #### GERALD ALROSIERP #### [facility] [address], [place] [id number] Yardage Control Clerk: Samuel Olivia MD ALT [Catalytic activity/Vol] 28 U/L Normal 5-41 [facility] Comment on above: Performed By: #### A XUAN, GLYHGB, CRP, SED, PE, CDP, TSHX, HIVCMB, CK, ANAX, CP, B12FOL, VD25, AHCV #### [facility] [address] [place] [id number] Yardage Control Clerk: Jasbir Montalvo MD #### PACHECO DUARTE #### [facility] [address], [place] [id number] Yardage Control Clerk: Samuel Olivia MD Anion gap [Moles/Vol] 11 mmol/L Normal 9-17 [facility] Comment on above: Performed By: #### A XUAN, GLYHGB, CRP, SED, PE, CDP, TSHX, HIVCMB, CK, ANAX, CP, B12FOL, VD25, AHCV #### [address] [id number] Yardage Control Clerk: Jasbir Montalvo MD #### PACHECO DUARTE #### [facility] [address] [place] [address] Yardage Control Clerk: Samuel Olivia MD AST [Catalytic activity/Vol] 29 U/L Normal <40 [facility] Comment on above: Performed By: #### A XUAN, GLYHGB, CRP, SED, PE, CDP, TSHX, HIVCMB, CK, ANAX, CP, B12FOL, VD25, AHCV #### [address] [id number] Yardage Control Clerk: Jasbir Montalvo MD #### ASHVIN DUARTERP #### [facility] [address], [place] [id number] Yardage Control Clerk: Samuel Olivia MD Bilirubin [Mass/Vol] 0.2 mg/dL Low 0.3-1.2 [facility] Comment on above: Performed By: #### A XUAN, GLYHGB, CRP, SED, PE, CDP, TSHX, HIVCMB, CK, ANAX, CP, B12FOL, VD25, AHCV #### [address] [address] Yardage Control Clerk: Jasbir Montalvo MD #### ASHVIN DUARTERP #### [facility] [address] [place] [address] Yardage Control Clerk: Samuel Olivia MD Calcium [Mass/Vol] 9.3 mg/dL Normal 8.6-10.4 [facility] Comment on above: Performed By: #### A XUAN, GLYHGB, CRP, SED, PE, CDP, TSHX, HIVCMB, CK, ANAX, CP, B12FOL, VD25, AHCV #### [address] [address] Yardage Control Clerk: Jasbir Montalvo MD #### PACHECO DUARTE #### [facility] [address] [place] [address] Yardage Control Clerk: Samuel Olivia MD Chloride [Moles/Vol] 112 mmol/L High 98-107 [facility] Comment on above: Performed By: #### A XUAN, GLYHGB, CRP, SED, PE, CDP, TSHX, HIVCMB, CK, ANAX, CP, B12FOL, VD25, AHCV #### [address] [address] Yardage Control Clerk: Jasbir Montalvo MD #### PACHECO DUARTE #### [facility] [address] [place] [address] Yardage Control Clerk: Samuel Olivia MD CO2 [Moles/Vol] 27 mmol/L Normal 20-31 [facility] Comment on above: Performed By: #### A XUAN, GLYHGB, CRP, SED, PE, CDP, TSHX, HIVCMB, CK, ANAX, CP, B12FOL, VD25, AHCV #### [address] [id number] Yardage Control Clerk: Jasbir Montalvo MD #### ASHVIN DUARTERP #### [facility] [address], [place] [id number] Yardage Control Clerk: Samuel Olivia MD Creatinine [Mass/Vol] 2.0 mg/dL High 0.7-1.2 [facility] Comment on above: Performed By: #### A XUAN, GLYHGB, CRP, SED, PE, CDP, TSHX, HIVCMB, CK, ANAX, CP, B12FOL, VD25, AHCV #### [address] [address] Yardage Control Clerk: Jasbir Montalvo MD #### ASHVIN DUARTERP #### [facility] [address] [place] [phone] Yardage Control Clerk: Samuel Olivia MD GFR/1.73 sq M.predicted among non-blacks MDRD (S/P/Bld) [Vol rate/Area] 37 mL/min/{1.73_m2} Low >60 [facility] Comment on above: Result Comment: These [...] CK, ANAX, CP, B12FOL, VD25, AHCV #### [facility] [address] [place] [id number] Yardage Control Clerk: Jasbir Montalvo MD #### AMGE, ALYARP #### [facility] [address] [place] [address] Yardage Control Clerk: Samuel Olivia MD Glucose [Mass/Vol] 157 mg/dL High 70-99 [facility] Comment on above: Performed By: #### A XUAN, GLYHGB, CRP, SED, PE, CDP, TSHX, HIVCMB, CK, ANAX, CP, B12FOL, VD25, AHCV #### [facility] [address] [place] [address] Yardage Control Clerk: Jasbir Montalvo MD #### GERALD ALYARP #### [facility] [address], [place] [id number] Yardage Control Clerk: Samuel Olivia MD Potassium [Moles/Vol] 4.0 mmol/L Normal 3.7-5.3 [facility] Comment on above: Performed By: #### A XUAN, GLYHGB, CRP, SED, PE, CDP, TSHX, HIVCMB, CK, ANAX, CP, B12FOL, VD25, AHCV #### [address] [id number] Yardage Control Clerk: Jasbir Montalvo MD #### GERALD ALROSIERP #### [facility] [address], [place] [phone] Yardage Control Clerk: Samuel Olivia MD Protein [Mass/Vol] 7.4 g/dL Normal 6.4-8.3 [facility] Comment on above: Performed By: #### A XUAN, GLYHGB, CRP, SED, PE, CDP, TSHX, HIVCMB, CK, ANAX, CP, B12FOL, VD25, AHCV #### [address] [address] Yardage Control Clerk: Jasbir Montalvo MD #### GERALD, ALYARP #### [facility] [address] [place] [address] Yardage Control Clerk: Samuel Olivia MD Sodium [Moles/Vol] 150 mmol/L High 135-144 [facility] Comment on above: Performed By: #### A XUAN, GLYHGB, CRP, SED, PE, CDP, TSHX, HIVCMB, CK, ANAX, CP, B12FOL, VD25, AHCV #### [address] [address] Yardage Control Clerk: Jasbir Montalvo MD #### ASHVIN DUARTERP #### [facility] [address], [place] [phone] Yardage Control Clerk: Sameul Olivia MD Urea nitrogen [Mass/Vol] 29 mg/dL High 8-23 [facility] Comment on above: Performed By: #### A XUAN, GLYHGB, CRP, SED, PE, CDP, TSHX, HIVCMB, CK, ANAX, CP, B12FOL, VD25, AHCV #### [address] [address] Yardage Control Clerk: Jasbir Montalvo MD #### PACHECO DUARTE #### [facility] [address] [place] [address] Yardage Control Clerk: Samuel Olivia MD Creatine Kinaseon 11-25-2023 CK [Catalytic activity/Vol] 117 U/L Normal 39-308 [facility] Comment on above: Performed By: #### A XUAN, GLYHGB, CRP, SED, PE, CDP, TSHX, HIVCMB, CK, ANAX, CP, B12FOL, VD25, AHCV #### [address] [address] Yardage Control Clerk: Jasbir Montalvo MD #### PACHECO DUARTE #### [facility] [address] [place] [address] Yardage Control Clerk: Samuel Olivia MD HIV Ag/Abon 11-25-2023 HIV Ag/Ab Non-Reactive Normal NR [facility] Comment on above: Result Comment: No l aboratory evidence of HIV infection. If acute HIV infection is suspected, consider testing for HIV-1 RNA. Performed By: #### A XUAN, GLYHGB, CRP, SED, PE, CDP, TSHX, HIVCMB, CK, ANAX, CP, B12FOL, VD25, AHCV #### [facility] [address] [place] [address] Yardage Control Clerk: Jasbir Montalvo MD #### PACHECO DUARTE #### [facility] [address] [place] [phone] Yardage Control Clerk: Samuel Olivia MD Hemoglobin A1Con 11-25-2023 Glucose [Mass/Vol] 206 mg/dL Normal [facility] Comment on above: Result Comment: The ADA and AACC recommend providing the estimated average glucose result to permit better patient understanding of their HBA1c result. Performed By: #### A XUAN, GLYHGB, CRP, SED, PE, CDP, TSHX, HIVCMB, CK, ANAX, CP, B12FOL, VD25, AHCV #### [address] [address] Yardage Control Clerk: Jasbir Montalvo MD #### PACHECO DUARTE #### [facility] [address] [place] [address] Yardage Control Clerk: Samuel Olivia MD HbA1c (Bld) [Mass fraction] 8.8 % High 4.0-6.0 [facility] Comment on above: Performed By: #### A XUAN, GLYHGB, CRP, SED, PE, CDP, TSHX, HIVCMB, CK, ANAX, CP, B12FOL, VD25, AHCV #### [address] [address] Yardage Control Clerk: Jasbir Montalvo MD #### PACHECO DUARTE #### [facility] [address], [place] [id number] Yardage Control Clerk: Samuel Olivia MD Hep C Abon 11-25-2023 Hep C Ab Non-Reactive Normal NR [facility] Comment on above: Result Comment: The [...] CK, ANAX, CP, B12FOL, VD25, AHCV #### [address] [id number] Yardage Control Clerk: Jasbir Montalvo MD #### PACHECO DUARTE #### [address] [address] Yardage Control Clerk: Samuel Olivia MD Prot. Electroph, Blon 2023 Protein [Mass/Vol] 7.1 g/dL Normal 6.4-8.3 [facility] Comment on above: Performed By: #### A XUAN, GLYHGB, CRP, SED, PE, CDP, TSHX, HIVCMB, CK, ANAX, CP, B12FOL, VD25, AHCV #### [address] [id number] Yardage Control Clerk: Jasbir Montalvo MD #### PACHECO DUARTE #### [facility] [address] [place] [address] Yardage Control Clerk: Samuel Olivia MD Sedimentation Rateon 024 Sedimentation Rate 15 mm/Hr Normal 0-20 [facility] Comment on above: Performed By: #### A XUAN, GLYHGB, CRP, SED, PE, CDP, TSHX, HIVCMB, CK, ANAX, CP, B12FOL, VD25, AHCV #### [address] [id number] Yardage Control Clerk: Jasbir Montalvo MD #### PACHECO DUARTE #### [address] [address] Yardage Control Clerk: Samuel Olivia MD TSH w/reflex to FT4on 2023 Thyroid Stim. Horm. 0.74 uIU/mL Normal 0.30-5.[address] [facility] Comment on above: Performed By: #### A XUAN, GLYHGB, CRP, SED, PE, CDP, TSHX, HIVCMB, CK, ANAX, CP, B12FOL, VD25, AHCV #### [address] [id number] Yardage Control Clerk: Jasbir Montalvo MD #### PACHECO DUARTE #### [address] [address] Yardage Control Clerk: Samuel Olivia MD Vitamin D 25 OHon 8 Vitamin D 25 OH 16.7 ng/mL Low >29.9 [facility] Comment on above: Result Comment: Reference Range: Vitamin D status Range Deficiency <20 ng/mL Mild Deficiency 20-30 ng/mL Sufficiency 30-100 ng/mL Toxicity >100 ng/mL Performed By: #### A XUAN, GLYHGB, CRP, SED, PE, CDP, TSHX, HIVCMB, CK, ANAX, CP, B12FOL, VD25, AHCV #### [address] [id number] Yardage Control Clerk: Jasbir Montalvo MD ###PACHECO HAN #### [address] [address] Yardage Control Clerk: Samuel Olivia MD CNOVon 9 CNOV Office Visit (NENMMN ) -- ANDRY PIERRE ([id number]) 1960 [place] Date Time Provider Department 11/06/23 10:30 AM OBED FLORIAN NENMMN During your visit today, we recorded the following information about you: Pulse Blood pressure Weight Height 81/minute 127/89 123.4 kg 1.753 m Obed Florian MD 11/06/2023 12:29 PM Signed [facility] New Patient Evaluation Consulting Provider: Shane Parham PA-C [address] [facility] [id number] Consultation requested by Shane Parham PA-C for an opinion regarding weakness. My final recommendations will be communicated back to the requesting physician by way of shared medical record or letter via US mail Individuals who were included in, or assisted with the encounter were: Andry Pierre Obed Florian MD Chief Complaint/Issues: Andry Pierre is a 62 year old ambidextrous male seen in the [facility] for: Leg weakness. Medical history: [...] Suggested DBS eval with movement d/o at [facility]. Before hospital admission pt reports being [...] to PN. Being followed by a local hoop machine operator for postural dizziness, palpitations, SOB and CP. Reportedly had a loop recorder placed. Per OSH hoop machine operator, loop recorder data neg for arrhythmias. Longstanding [...] Deformity: ab (more content not included)... Normal [facility] Orders Onlyon 11-04-2023 Orders Only [id number] Joanie Pierre 1960 [facility] Provider Department Center 11/04/2023 MEGA DONAHUE ANNITA White Family History Problem Relation Age of Onset Coronary artery disease Mother Coronary artery disease Father Family Status - Relation Status Age at Mother Father Normal [facility] Telemedicineon 10-21-2023 Telemedicine [id number] Joanie Pierre 1960 [facility] Provider Department Center 10/21/2023 DIOGENES ALONSO ANNITA White Family History Problem Relation Age of Onset Coronary artery disease Mother Coronary artery disease Father Family Status - Relation Status Age at Mother Father Level of Service:15118 [place] PHYS/QHP TELEPHONE EVALUATION 11-20 MIN Normal [facility] CNPMallory 10-07[facility]2023 [facility] -- ANDRY PIERRE ([id number]) 1960 [facility] Time Provider Department 10/07/23 CRYSTAL GARNER [facility] During your visit today, we recorded [...] [Other] Prescriptions as of 10/07/2023 - Insulin [place], Disposable, (BD INSULIN PEN NEEDLE UF) 29 [...] Status:Closed by YVONNE JAY on 10/07/23 Normal [facility] ACETYLCHO R MOD ABon 023 ACETYLCHOLINE RECEPT/MODULATING 3 % Normal <=45 [facility] Comment on above: Order Comment: Speci men Type: BLOOD SPECIMEN Ordering Facility: [facility] Address: [address] [place] [address] Result Comment: INTE RPRETIVE INFORMATION: Acetylcholine Modulating [...] developed and its performance characteristics determined by [facility]. It has not been cleared or approved by the [place] Food and Drug Administration. This test was performed in a CLIA certified laboratory and is intended for clinical purposes. Performed By: [facility] [address] [place] [address] Welding Machine Operator [employer]: Uriah Prasad MD, PhD CLIA Number: [id number] Performed By: #### A CEMOD #### [facility] CLIA [id number] [address] [place] [address] ACETYLCHOLINE REC BINDING AB on 09-19-2023 ACETYLCHOLINE BINDING, QUAL Negative Normal Negative [facility] Comment on above: Order Comment: Speci men Type: BLOOD SPECIMENOrdering Facility: [facility] Address: [address] [place], [place] [facility] Result Comment: Anti -acetylcholine receptor binding antibody test is used as an aid in diagnosis of myasthenia gravis. A negative result cannot exclude myasthenia gravis. Clinical correlation is required. Performed By: #### A CHRAB ####[facility] [id number] [place] [address] [place] Acetylcholine receptor binding Ab (S) [Moles/Vol] <0.02 Normal <0.21 [facility] Comment on above: Order Comment: Sherry hu Type: BLOOD SPECIMENOrdering Facility: [facility] Address: [address] [place] [address] Performed By: #### A CHRAB ####[facility] [id number] [place] [address] [place] ACETYLCHOLINE REC BLOCKING A Bon 09-19-2023 ACETYLCHOLINE BLOCKING, QUAL Negative Normal Negative [facility] Comment on above: Order Comment: Sherry hu Type: BLOOD SPECIMEN Ordering Facility: [facility] Address: [address] [place] [address] Result Comment: Anti -acetylcholine receptor blocking antibody test is used as an aid in diagnosis of myasthenia gravis. A negative result cannot exclude myasthenia gravis. Clinical correlation is required. Performed By: #### A CEBAB #### [facility] CLIA [id number] [address] [place] [address] [place] Acetylcholine receptor blocking Ab/Acetylcholine Ab.total (S) [Molar fraction] <13 Normal <21 [facility] Comment on above: Order Comment: Sherry hu Type: BLOOD SPECIMEN Ordering Facility: [facility] Address: [address] [place] [address] Performed By: #### A CEBAB #### [facility] CLIA [id number] [address] [place] [address] [place] CNOVon 09-19-2023 CNOV Office Visit (NREUS2 ) -- ANDRY PIERRE ([id number]) 1960 M Date Time Provider Department 09/19/23 11:00 AM SHANE PARHAM NREUS2 During your visit today, we recorded the following information about you: Pulse Blood pressure 82/minute 133/69 Shane Parham PA-C 09/19/2023 4:39 PM Signed [facility] - FOLLOW UP EVALUATION Say Mccormick MD [address] [facility] [phone] Dear Say Mccormick MD: I had the [...] Row Office Visit from 09/19/2023 in [facility] from 01/21/2022 in [facility] [...] it Current Outpatient Medications Medication Sig Insulin [place], Disposable, (BD INSULIN PEN NEEDLE UF) 29 [...] 1 tab (more content not included)... Normal [place] 09-12-2023 [facility] Telephone (NREUS2) -- ANDRY PIERRE ([id number]) 1960 Date Time Provider Department 09/12/23 SHANE [...] Last office visit 01/21/22 with SN Sean Raza Rhianna 09/12/2023 2:44 PM Signed Mr. Pierre phoned [...] months, dizzy and can hardly walk - [phone]. Pranav Bhatia 09/16/2023 4:24 PM Signed Patient [...] with infarction (more content not included)... Normal [facility] Office Visiton 08-19-2023 Follow-up visit [id number] Joanie Pierre 1960 M Date Provider Department Center 08/19/2023 1596-SURI BANDA CARD [facility] Family History Problem Relation Age of Onset Coronary artery disease Mother Coronary artery disease Father Family Status - Relation Status Age at Mother Father Level of Service:31510 [place] OFFICE/OUTPATIENT ESTABLISHED MOD MDM 30-39 MIN [facility] 36on 07-23-2023 36 Called to schedule [...] my call to schedule if he chooses. [facility] José Antonio 07-07-2023 CNPN Telephone (NREUS2) -- ANDRY PIERRE ([id number]) 1960 M Date Time Provider Department 07/07/23 [...] in Docusign for Dr. Rose's signature (tp). [place], Kerwin, RN 07/10/2023 9:15 AM Addendum Spoke with sales utility representative from Dr. Kumar's office, they report [...] Status:Closed by KERWIN BRITO on 07/10/23 Normal [facility] INSULINon 02-21-2023 Insulin 9.5 uIU/mL Normal 2.6-24.9 [facility] Comment on above: Performed By: #### I NSULIN #### [facility] [address] [address] [address] Miah Buck XR LSPINE 2_3 VIEWSon [...] ROCK AVELAR Date: 2023-02-21 06:19 Normal [facility] BNPon 02-20-2023 Natriuretic peptide B (Bld) [Mass/Vol] 52.0 pg/mL Normal <=900.0 [facility] Comment on above: Performed By: #### M G, CMP, BNP, TSH, CRP #### [facility] [address] [place] [address] Dr. Miah Buck CBC AUTO DIFFon 02-20-2023 BASO # 0.1 103/ul Normal 0.0-0.1 [facility] Comment on above: Performed By: #### A 1C #### [facility] [address] [place] [address] Dr. Miah Buck Basophils/100 WBC (Bld) 0.8 % Normal 0.2-2.0 [facility] Comment on above: Performed By: #### A 1C #### [facility] [address] [place] [address] Dr. Miah Buck EO # 0.3 103/ul Normal 0.0-0.7 [facility] Comment on above: Performed By: #### A 1C #### [facility] [address] [place] [address] Dr. Miah Buck Eosinophils/100 WBC (Bld) 3.5 % Normal 0.9-7.0 [facility] Comment on above: Performed By: #### A 1C #### [facility] [address] [place] [address] Dr. Miah Buck Erythrocyte distribution width (RBC) [Ratio] 12.7 % Normal 11.0-15.0 [facility] Comment on above: Performed By: #### A 1C #### [facility] [address] [place] [address] Dr. Miah Buck Hematocrit (Bld) [Volume fraction] 48.8 % Normal 42.0-54.0 [facility] Comment on above: Performed By: #### A 1C #### [facility] [address] [place] [address] Dr. Miah Buck Hemoglobin (Bld) [Mass/Vol] 16.8 g/dL Normal 14.0-18.0 [facility] Comment on above: Performed By: #### A 1C #### [facility] [address] [place] [address] Dr. Miah Buck IG # 0.04 10e3/ul Critically high 0.00-0.03 [facility] Comment on above: Performed By: #### A 1C #### [facility] [address] [place] [address] Dr. Miah Buck IG % 0.6 % Critically high 0.0-0.5 [facility] Comment on above: Performed By: #### A 1C #### [facility] [address] [place] [address] Dr. Miah Buck LYMPH # 1.9 103/ul Normal 1.2-3.8 [facility] Comment on above: Performed By: #### A 1C #### [facility] [address] [place] [address] Dr. Miah Buck Lymphocytes/100 WBC (Bld) 27.0 % Normal 20.5-60.0 [facility] Comment on above: Performed By: #### A 1C #### [facility] [address] [place] [address] Dr. Miah Buck MANUAL DIFF REQ NO Normal [facility] Comment on above: Performed By: #### A 1C #### [facility] [address] [address] [address] Miah Buck MCH (RBC) [Entitic mass] 31.5 pg Normal 25.9-34.0 [facility] Comment on above: Performed By: #### A 1C #### [facility] [address] [place] [address] Dr. Miah Buck MCHC (RBC) [Mass/Vol] 34.4 g/dL Normal 29.9-35.2 [facility] Comment on above: Performed By: #### A 1C #### [facility] [address] [place] [address] Dr. Miah Buck MCV (RBC) [Entitic vol] 91.4 fL Normal 80.0-94.0 [facility] Comment on above: Performed By: #### A 1C #### [facility] [address] [place] [address] Dr. Miah Buck MONO # 0.4 103/ul Normal 0.3-0.8 [facility] [facility] Comment on above: Performed By: #### A 1C #### [facility] [address] [place] [address] Dr. Miah Buck Monocytes/100 WBC (Bld) 5.5 % Normal 1.7-12.0 [facility] Comment on above: Performed By: #### A 1C #### [facility] [address] [place] [address] Dr. Miah Buck NEUT # 4.5 103/ul Normal 1.4-6.5 [facility] Comment on above: Performed By: #### A 1C #### [facility] [address] [place] [address] Dr. Miah Buck Neutrophils/100 WBC (Bld) 62.6 % Normal 43.0-75.0 [facility] Comment on above: Performed By: #### A 1C #### [facility] [address] [place] [address] Dr. Miah Buck Platelet mean volume (Bld) [Entitic vol] 10.6 fL Normal 9.5-13.5 [facility] Comment on above: Performed By: #### A 1C #### [facility] [address] [address] [address] Miah Buck PLT 204 103/ul Normal 150-450 [facility] Comment on above: Performed By: #### A 1C #### [facility] [address] [address] [address] Miah Buck RBC 5.34 106/ul Normal 4.70-6.10 [facility] Comment on above: Performed By: #### A 1C #### [facility] [address] [address] [address] Miah Buck WBC 7.2 103/ul Normal 4.0-11.0 [facility] Comment on above: Performed By: #### A 1C #### [facility] [address] [place] [address] Dr. Miah Buck DIRECT LDLon 02-20-2023 Cholesterol in LDL [Mass/Vol] 173 mg/dL Normal [facility] Comment on above: Performed By: #### A 1C #### [facility] [address] [place] [address] Dr. Miah Buck DLDL NORMAL SEE BELOW Normal [facility] Comment on above: Result Comment: <100 mg/dl OPTIMAL 100 - 129 mg/dl NEAR OR ABOVE OPTIMAL 130 - 159 mg/dl BORDERLINE HIGH 160 - 189 mg/dl HIGH >190 mg/dl VERY HIGH Performed By: #### A 1C #### [facility] [address] [place] [address] Dr. Miah Buck FREE T3on 02-20-2023 FREE T3 1.75 pg/mlL Critically low 2.18-3.98 [facility] Comment on above: Performed By: #### A 1C #### [facility] [address] [place] [address] Dr. Miah Buck GLYCOHEMOGLOBIN A1Con 2022 ADA RECOMMENDATION SEE BELOW Normal [facility] Comment on above: Result Comment: ADA RECOMMENDED LIMIT 4.0 - 6.0 ADA THERAPEUTIC TARGET < 7.0 ACTION SUGGESTED > 7.0 Performed By: #### A 1C #### [facility] [address] [place], [place] [address] Dr. Miah Buck Glucose [Mass/Vol] 298 mg/dL Normal [facility] Comment on above: Performed By: #### A 1C #### [facility] [address] [address] [address] Miah Buck HbA1c (Bld) [Mass fraction] 12.0 % Critically high 4.5-6.2 [facility] Comment on above: Performed By: #### A 1C #### [facility] [address] [address] [address] Miah Buck LIPID PROFILEon 02-20-2023 CHOL-HDL RATIO NORM SEE BELOW Normal [facility] Comment on above: Result Comment: 3.3 - 4.4 LOW RISK 4.4 - 7.1 AVERAGE RISK 7.1 - 11.0 MODERATE RISK >11.0 HIGH RISK Performed By: #### A 1C #### [facility] [address] [address] [address] Miah Buck Cholesterol [Mass/Vol] 303 mg/dL Critically high <=200 [facility] Comment on above: Performed By: #### A 1C #### [facility] [address] [address] [address] Miah Buck Cholesterol in HDL [Mass/Vol] 33 mg/dL Critically low 40-60 [facility] Comment on above: Performed By: #### A 1C #### [facility] [address] [address] [address] Miah Buck Cholesterol.total/C holesterol in HDL [Mass ratio] 9.2 {ratio} Normal [facility] Comment on above: Performed By: #### A 1C #### [facility] [address] [address] [address] Miah Buck HDL NORMAL > or = 60 mg/dl - LO W CARDIOVASCULAR RISK <40 mg/dl - HIGH CARDIOVASCULAR RISK Normal [facility] Comment on above: Performed By: #### A 1C #### [facility] [address] [address] [address] Miah Buck Triglyceride [Mass/Vol] 454 mg/dL Critically high <=150 [facility] Comment on above: Performed By: #### A 1C #### [facility] [address] [place] [address] Dr. Miah Buck VLDL CALC 90.8 mg/dL Normal [facility] Comment on above: Performed By: #### A 1C #### [facility] [address] [place] [address] Dr. Miah Buck PROF 14(COMP METB)on 023 Albumin [Mass/Vol] 3.5 g/dL Normal 3.4-5.0 [facility] Comment on above: Performed By: #### A 1C #### [facility] [address] [place] [address] Dr. Miah Buck Albumin/Globulin [Mass ratio] 0.7 {ratio} Normal [facility] Comment on above: Performed By: #### A 1C #### [facility] [address] [place] [address] Dr. Miah Buck ALP [Catalytic activity/Vol] 146 U/L Critically high 46-116 [facility] Comment on above: Performed By: #### A 1C #### [facility] [address] [place] [address] Dr. Miah Buck ALT [Catalytic activity/Vol] 40 U/L Normal 16-63 [facility] Comment on above: Performed By: #### A 1C #### [facility] [address] [place] [address] Dr. Miah Buck Anion gap [Moles/Vol] 13.8 mmol/L Normal [facility] Comment on above: Performed By: #### A 1C #### [facility] [address] [place] [address] Dr. Miah Buck AST [Catalytic activity/Vol] 19 U/L Normal 15-37 [facility] Comment on above: Performed By: #### A 1C #### [facility] [address] [place] [address] Dr. Miah Buck Bilirubin [Mass/Vol] 0.4 mg/dL Normal 0.2-1.0 [facility] Comment on above: Performed By: #### A 1C #### [facility] [address] [address] [address] Miah Buck Calcium [Mass/Vol] 9.1 mg/dL Normal 8.5-10.1 [facility] Comment on above: Performed By: #### A 1C #### [facility] [address] [address] [address] Miah Buck Chloride [Moles/Vol] 99 mmol/L Normal 98-107 [facility] Comment on above: Performed By: #### A 1C #### [facility] [address] [address] [address] Miah Buck CO2 [Moles/Vol] 27.6 mmol/L Normal 21.0-32.0 [facility] Comment on above: Performed By: #### A 1C #### [facility] [address] [place] [address] Dr. Miah Buck Creatinine [Mass/Vol] 1.88 mg/dL Critically high 0.70-1.30 [facility] Comment on above: Performed By: #### A 1C #### [facility] [address] [address] [address] Miah Buck EGFR-AF POLISH 44 mL/min/1.73m2 Critically low >=60 [facility] Comment on above: Performed By: #### A 1C #### [facility] [address] [address] [address] Miah Buck EGFR-NON AF POLISH 37 mL/min/1.73m2 Critically low >=60 [facility] Comment on above: Performed By: #### A 1C #### [facility] [address] [address] [address] Miah Buck Globulin (S) [Mass/Vol] 4.7 g/dL Normal [facility] Comment on above: Performed By: #### A 1C #### [facility] [address] [address] [address] Miah Buck Glucose [Mass/Vol] 524 mg/dL Critically high 74-106 [facility] Comment on above: Performed By: #### A 1C #### [facility] [address] [address] [address] Miah Buck Potassium [Moles/Vol] 4.4 mmol/L Normal 3.5-5.1 [facility] Comment on above: Performed By: #### A 1C #### [facility] [address] [address] [address] Miah Buck Protein [Mass/Vol] 8.2 g/dL Normal 6.4-8.2 [facility] Comment on above: Performed By: #### A 1C #### [facility] [address] [address] [address] Miah Buck Sodium [Moles/Vol] 136 mmol/L Normal 136-145 [facility] Comment on above: Performed By: #### A 1C #### [facility] [address] [address] [address] Miah Buck Urea nitrogen [Mass/Vol] 21.0 mg/dL Critically high 7.0-18.0 [facility] Comment on above: Performed By: #### A 1C #### [facility] [address] [address] [address] Miah Buck Urea nitrogen/Creatinine [Mass ratio] 11.2 mg/mg Normal [facility] Comment on above: Performed By: #### A 1C #### [facility] [address] [address] [address] Miah Buck T4on 02-20-2023 T4 [Mass/Vol] 7.80 ug/dL Normal 4.50-12.10 [facility] Comment on above: Performed By: #### A 1C #### [facility] [address] [address] [address] Miah Buck TSHon 02-20-2023 TSH 0.740 uIU/mL Normal 0.358-3.740 [facility] Comment on above: Performed By: #### A 1C #### [facility] [address] [address] [address] Miah Buck URIC ACID SERUMon 02-20-2023 Urate [Mass/Vol] 8.2 mg/dL Critically high 3.5-7.2 [facility] Comment on above: Performed By: #### A 1C #### [facility] [address] [address] [address] Miah Buck CREATININEon 01-07-2023 Creatinine [Mass/Vol] 2.09 mg/dL Critically high 0.70-1.30 [facility] Comment on above: Performed By: #### M G, CMP, BNP, TSH, CRP #### [facility] [address] [address] [address] Miah Buck EGFR-AF POLISH 39 mL/min/1.73m2 Critically low >=60 [facility] Comment on above: Performed By: #### M G, CMP, BNP, TSH, CRP #### [facility] [address] [place] [address] Dr. Miah Buck EGFR-NON AF POLISH 32 mL/min/1.73m2 Critically low >=60 [facility] Comment on above: Performed By: #### M G, CMP, BNP, TSH, CRP #### [facility] [address] [place] [address] ABD/PELV W CONon [...] ROCK AVELAR Date: 2023-01-07 10:18 Normal [facility]on SARS-CoV-2 (COVID-19) RNA EMMY+probe Ql (Unsp spec) Not detected Normal NOT DETECTED [facility] Comment on above: Result Comment: This test is not yet approved or cleared by the [place] FDA. When there are no FDA-approved or cleared tests available, and other criteria are met, FDA can make tests available under an emergency access mechanism called an Emergency Use Authorization (EUA). The EUA for this test is supported by the [employer] Specialist of Health and Human Service's (HHS's) declaration [...] M G, CMP, BNP, TSH, CRP #### [facility] [address] [address] [address] HEAD WO CONon [...] LOS BAIRES Date: 2022-05-29 09:41 Normal [facility] CT NECK ST WO CONon 05-29-20 [...] ALISA HOLMAN Date: 2022-05-29 10:26 Normal [facility] VIT D 25-OH [facility]on 2021 Vitamin D, 25-Hydroxy 27.6 ng/mL Critically low 30.0-100.0 [facility] Comment on above: Result Comment: Rima min D deficiency has been defined by the [place] of [employer] and an Endocrine Society practice guideline as a level of serum 25-OH vitamin D less than 20 ng/mL (1,2). The Endocrine Society went on to further define vitamin D insufficiency as a level between 21 and 29 ng/mL (2). 1. IOM ([place] of [employer]). 2010. Dietary reference intakes for calcium and D. [place]: The National Academies Press. 2. Su MF, Agapito HOSKINS, Mason KAUFMAN, et al. Evaluation, treatment, and prevention of vitamin D deficiency: an Endocrine Society clinical practice guideline. JCEM. 2010; 96(7):1911-30. Performed By: #### V ITADLC #### [facility] [address] [address] [address] Miah Buck XR CHEST 2 Von [...] ROCK AVELAR Date: 2022-05-24 07:37 Normal [facility] BNPon 05-23-2022 Natriuretic peptide B (Bld) [Mass/Vol] 53.0 pg/mL Normal <=900.0 [facility] Comment on above: Performed By: #### M G, CMP, BNP, TSH, CRP #### [facility] [address] [address] [address] Miah Buck CBC AUTO DIFFon 05-23-2022 BASO # 0.1 103/ul Normal 0.0-0.1 [facility] Comment on above: Performed By: #### A 1C #### [facility] [address] [address] [address] Miah Buck Basophils/100 WBC (Bld) 0.7 % Normal 0.2-2.0 [facility] Comment on above: Performed By: #### A 1C #### [facility] [address] [address] [address] Miah Buck EO # 0.3 103/ul Normal 0.0-0.7 [facility] Comment on above: Performed By: #### A 1C #### [facility] [address] [place] [address] Dr. Miah Buck Eosinophils/100 WBC (Bld) 4.0 % Normal 0.9-7.0 [facility] Comment on above: Performed By: #### A 1C #### [facility] [address] [place] [address] Dr. Miah Buck Erythrocyte distribution width (RBC) [Ratio] 13.4 % Normal 11.0-15.0 [facility] Comment on above: Performed By: #### A 1C #### [facility] [address] [place] [address] Dr. Miah Buck Hematocrit (Bld) [Volume fraction] 46.1 % Normal 42.0-54.0 [facility] Comment on above: Performed By: #### A 1C #### [facility] [address] [place] [address] Dr. Miah Buck Hemoglobin (Bld) [Mass/Vol] 15.5 g/dL Normal 14.0-18.0 [facility] Comment on above: Performed By: #### A 1C #### [facility] [address] [place] [address] Dr. Miah Buck IG # 0.03 10e3/ul Normal 0.00-0.03 [facility] Comment on above: Performed By: #### A 1C #### [facility] [address] [place] [address] Dr. Miah Buck IG % 0.4 % Normal 0.0-0.5 [facility] Comment on above: Performed By: #### A 1C #### [facility] [address] [place] [address] Dr. Miah Buck LYMPH # 2.0 103/ul Normal 1.2-3.8 [facility] Comment on above: Performed By: #### A 1C #### [facility] [address] [place] [address] Dr. Miah Buck Lymphocytes/100 WBC (Bld) 28.1 % Normal 20.5-60.0 [facility] Comment on above: Performed By: #### A 1C #### [facility] [address] [place] [address] Dr. Miah Buck MANUAL DIFF REQ NO Normal [facility] Comment on above: Performed By: #### A 1C #### [facility] [address] [place] [address] Dr. Miah Buck MCH (RBC) [Entitic mass] 31.8 pg Normal 25.9-34.0 [facility] Comment on above: Performed By: #### A 1C #### [facility] [address] [place] [address] Dr. Miah Buck MCHC (RBC) [Mass/Vol] 33.6 g/dL Normal 29.9-35.2 [facility] Comment on above: Performed By: #### A 1C #### [facility] [address] [place] [address] Dr. Miah Buck MCV (RBC) [Entitic vol] 94.7 fL Critically high 80.0-94.0 [facility] Comment on above: Performed By: #### A 1C #### [facility] [address] [place] [address] Dr. Miah Buck MONO # 0.5 103/ul Normal 0.3-0.8 [facility] Comment on above: Performed By: #### A 1C #### [facility] [address] [place] [address] Dr. Miah Buck Monocytes/100 WBC (Bld) 7.1 % Normal 1.7-12.0 [facility] Comment on above: Performed By: #### A 1C #### [facility] [address] [place] [address] Dr. Miah Buck NEUT # 4.3 103/ul Normal 1.4-6.5 [facility] Comment on above: Performed By: #### A 1C #### [facility] [address] [place] [address] Dr. Miah Buck Neutrophils/100 WBC (Bld) 59.7 % Normal 43.0-75.0 [facility] Comment on above: Performed By: #### A 1C #### [facility] [address] [address] [address] Miah Buck Platelet mean volume (Bld) [Entitic vol] 10.6 fL Normal 9.5-13.5 [facility] Comment on above: Performed By: #### A 1C #### [facility] [address] [address] [address] Miah Buck PLT 209 103/ul Normal 150-450 [facility] Comment on above: Performed By: #### A 1C #### [facility] [address] [address] [address] Miah Buck RBC 4.87 106/ul Normal 4.70-6.10 [facility] Comment on above: Performed By: #### A 1C #### [facility] [address] [address] [address] Miah Buck WBC 7.2 103/ul Normal 4.0-11.0 [facility] Comment on above: Performed By: #### A 1C #### [facility] [address] [address] [address] Miah Buck CRPon 05-23-2022 CRP 1.0 mg/dL Normal <=1.0 [facility] Comment on above: Performed By: #### M G, CMP, BNP, TSH, CRP #### [facility] [address] [address] [address] Miah Buck ECHOCARDIO M/2D COMPLETEon 0 05-23-2022 ECHOCARDIO M/2D COMPLETE Patient: ANDRY PIERRE Exam Date: 05/23/2022 : 1960 Gender:M Ordering : SOFYA HIDALGO [facility] Admission #: [id number] Family : DR SAY MCCORMICK . Order #: [id number] CLICK HERE TO VIEW EXAM ECHOCARDIOGRAM REPORT [...] M.D. on 05/23/2022 at 18:40 Normal [facility] MAGNESIUMon 05-23-2022 Magnesium [Mass/Vol] 2.3 mg/dL Normal 1.8-2.4 [facility] Comment on above: Performed By: #### M G, CMP, BNP, TSH, CRP #### [facility] [address] [place] [address] Dr. Miah Buck PROF 14(COMP METB)on 022 Albumin [Mass/Vol] 3.6 g/dL Normal 3.4-5.0 [facility] Comment on above: Performed By: #### M G, CMP, BNP, TSH, CRP #### [facility] [address] [address] [address] Miah Buck Albumin/Globulin [Mass ratio] 0.9 {ratio} Normal [facility] Comment on above: Performed By: #### M G, CMP, BNP, TSH, CRP #### [facility] [address] [address] [address] Miah Buck ALP [Catalytic activity/Vol] 113 U/L Normal 46-116 [facility] Comment on above: Performed By: #### M G, CMP, BNP, TSH, CRP #### [facility] [address] [address] [address] Miah Buck ALT [Catalytic activity/Vol] 34 U/L Normal 16-63 [facility] Comment on above: Performed By: #### M G, CMP, BNP, TSH, CRP #### [facility] [address] [place] [address] Dr. Miah Buck Anion gap [Moles/Vol] 10.7 mmol/L Normal [facility] Comment on above: Performed By: #### M G, CMP, BNP, TSH, CRP #### [facility] [address] [address] [address] Miah Buck AST [Catalytic activity/Vol] 23 U/L Normal 15-37 [facility] Comment on above: Performed By: #### M G, CMP, BNP, TSH, CRP #### [facility] [address] [address] [address] Miah Buck Bilirubin [Mass/Vol] 0.3 mg/dL Normal 0.2-1.0 [facility] Comment on above: Performed By: #### M G, CMP, BNP, TSH, CRP #### [facility] [address] [address] [address] Miah Buck Calcium [Mass/Vol] 8.9 mg/dL Normal 8.5-10.1 [facility] Comment on above: Performed By: #### M G, CMP, BNP, TSH, CRP #### [facility] [address] [address] [address] Miah Buck Chloride [Moles/Vol] 105 mmol/L Normal 98-107 [facility] Comment on above: Performed By: #### M G, CMP, BNP, TSH, CRP #### [facility] [address] [address] [address] Miah Buck CO2 [Moles/Vol] 26.5 mmol/L Normal 21.0-32.0 [facility] Comment on above: Performed By: #### M G, CMP, BNP, TSH, CRP #### [facility] [address] [address] [address] Miah Buck Creatinine [Mass/Vol] 1.73 mg/dL Critically high 0.70-1.30 [facility] Comment on above: Performed By: #### M G, CMP, BNP, TSH, CRP #### [facility] [address] [place] [address] Dr. Miah Buck EGFR-AF POLISH 49 mL/min/1.73m2 Critically low >=60 [facility] Comment on above: Performed By: #### M G, CMP, BNP, TSH, CRP #### [facility] [address] [place] [address] Dr. Miah Buck EGFR-NON AF POLISH 40 mL/min/1.73m2 Critically low >=60 [facility] Comment on above: Performed By: #### M G, CMP, BNP, TSH, CRP #### [facility] [address] [place] [address] Dr. Miah Buck Globulin (S) [Mass/Vol] 4.0 g/dL Normal [facility] Comment on above: Performed By: #### M G, CMP, BNP, TSH, CRP #### [facility] [address] [place] [address] Dr. Miah Buck Glucose [Mass/Vol] 285 mg/dL Critically high 74-106 [facility] Comment on above: Performed By: #### M G, CMP, BNP, TSH, CRP #### [facility] [address] [place] [address] Dr. Miah Buck Potassium [Moles/Vol] 4.2 mmol/L Normal 3.5-5.1 [facility] Comment on above: Performed By: #### M G, CMP, BNP, TSH, CRP #### [facility] [address] [address] [address] Miah Buck Protein [Mass/Vol] 7.6 g/dL Normal 6.4-8.2 [facility] Comment on above: Performed By: #### M G, CMP, BNP, TSH, CRP #### [facility] [address] [place] [address] Dr. Miah Buck Sodium [Moles/Vol] 138 mmol/L Normal 136-145 [facility] Comment on above: Performed By: #### M G, CMP, BNP, TSH, CRP #### [facility] [address] [place] [address] Dr. Miah Buck Urea nitrogen [Mass/Vol] 23.0 mg/dL Critically high 7.0-18.0 [facility] Comment on above: Performed By: #### M G, CMP, BNP, TSH, CRP #### [facility] [address] [place] [address] Dr. Miah Buck Urea nitrogen/Creatinine [Mass ratio] 13.3 mg/mg Normal [facility] Comment on above: Performed By: #### M G, CMP, BNP, TSH, CRP #### [facility] [address] [place] [address] Dr. Miah Buck TSHon 05-23-2022 TSH 0.714 uIU/mL Normal 0.358-3.740 [facility] Comment on above: Performed By: #### M G, CMP, BNP, TSH, CRP #### [facility] [address] [place] [address] Dr. Miah Buck VITAMIN B12on 05-23-2022 Cobalamin (Vitamin B12) [Mass/Vol] 930.0 pg/mL Normal 193.0-986.0 [facility] Comment on above: Performed By: #### V ITB12 #### [facility] [address] [place] [address] Dr. Miah Buck BASIC METABOLIC PANELon 10-2 2-2021 Calcium [Mass/Vol] 8.3 mg/dL Low 8.6-10.3 [facility] Comment on above: Order Comment: No: D o not add to previous draw Performed By: #### 1 0070, [id number], [id number], [id number] #### [facility] [address] [place] [address], [place] Chloride [Moles/Vol] 105 mmol/L Normal 98-107 [facility] Comment on above: Order Comment: No: D o not add to previous draw Performed By: #### 1 0070, [id number], [id number], 93477 #### [facility] [address] [place] [address], [place] CO2 [Moles/Vol] 22 mmol/L Normal 21-31 [facility] Comment on above: Order Comment: No: D o not add to previous draw Performed By: #### 1 0070, 78425, 32687, 10988 #### [facility] [address] [place] [address], [place] Creatinine [Mass/Vol] 1.31 mg/dL High 0.70-1.30 [facility] Comment on above: Order Comment: No: D o not add to previous draw Performed By: #### 1 0070, 36217, 07241, 24685 #### [facility] [address] [place] [address], [place] eGFR- non- 56 ml/min/1.73sq m Abnormal >60 [facility] Comment on above: Order Comment: No: D o not add to previous draw Performed By: #### 1 0070, 61543, 29114, 03385 #### [facility] [address] [place] [address], [place] GFR/1.73 sq M.predicted among blacks MDRD (S/P/Bld) [Vol rate/Area] mL/min/{1.73_m2} Normal >60 [facility] Comment on above: Order Comment: No: D o not add to previous draw Performed By: #### 1 0070, 51394, 23449, 48026 #### [facility] [address] [place] [address], [facility] Glucose [Mass/Vol] 231 mg/dL High 70-100 [facility] Comment on above: Order Comment: No: D o not add to previous draw Performed By: #### 1 0070, 14635, 20282, 07991 #### [facility] [address] [facility] [place] [address], [facility] Potassium [Moles/Vol] 3.6 mmol/L Normal 3.5-5.1 [facility] Comment on above: Order Comment: No: D o not add to previous draw Performed By: #### 1 0070, 45852, 16246, 83427 #### [facility] [address] [place] [address], [facility] Sodium [Moles/Vol] 139 mmol/L Normal 136-145 [facility] Comment on above: Order Comment: No: D o not add to previous draw Performed By: #### 1 0070, 80845, 89108, 61602 #### [facility] [address] [facility] [address], [facility] Urea nitrogen [Mass/Vol] 17 mg/dL Normal 7-25 [facility] Comment on above: Order Comment: No: D o not add to previous draw Performed By: #### 1 0070, 88521, 37226, 09178 #### [facility] [address] [facility] [place] [address], [facility] CBC W/DIFFon 07-27-2021 ABS IMM GRANS 0.1 10*3/uL Normal 0.0-0.2 [facility] Comment on above: Performed By: #### 1 0070, 69023, 10519, 55390 #### [facility] [address] [place] [id number], [facility] ABS NEUTROPHILS 10.2 10*3/uL High 1.6-7.6 [facility] Comment on above: Performed By: #### 1 0070, 66492, 11037, 27574 #### [facility] [address] [place] [address], [facility] Basophils (Bld) [#/Vol] 0.0 10*3/uL Normal 0.0-0.2 [facility] Comment on above: Performed By: #### 1 0070, 66975, 38663, 92911 #### [facility] [address] [place] [address], [facility] Basophils/100 WBC (Bld) 0.3 % Normal 0.0-1.0 [facility] Comment on above: Performed By: #### 1 0070, 16977, 17288, 41736 #### [facility] [address] [facility] [place] [address], [facility] Eosinophils (Bld) [#/Vol] 0.0 10*3/uL Normal 0.0-0.5 [facility] Comment on above: Performed By: #### 1 0070, 62062, 87154, 23174 #### [facility] [address] [facility] [address], [facility] Eosinophils/100 WBC (Bld) 0.0 % Normal 0.0-6.0 [facility] Comment on above: Performed By: #### 1 0070, 02190, 69909, 91534 #### [facility] [address] [facility]. [address] Erythrocyte distribution width (RBC) [Ratio] 13.2 % Normal 11.5-15.0 [facility] Comment on above: Performed By: #### 1 0070, 86086, 06793, 40090 #### [facility] [address] [facility] [place] [place] [address], [facility] Hematocrit (Bld) [Volume fraction] 44.2 % Normal 39.0-50.0 [facility] Comment on above: Performed By: #### 1 0070, 52550, 03700, 95117 #### [facility] [address] [facility]. [address] Hemoglobin (Bld) [Mass/Vol] 14.9 g/dL Normal 13.0-17.0 [facility] Comment on above: Performed By: #### 1 0070, 44302, 92812, 01834 #### [facility] [address] [facility] [address], [facility] IMMATURE GRANS 0.7 % Normal 0.0-1.0 [facility] Comment on above: Performed By: #### 1 0070, 03553, 99055, 15742 #### [facility] [address] Lymphocytes (Bld) [#/Vol] 1.0 10*3/uL Low 1.2-4.0 [facility] Comment on above: Performed By: #### 1 0070, 68373, 86122, 61911 #### [facility] [address] Lymphocytes/100 WBC (Bld) 8.2 % Low 20.0-45.0 [facility] Comment on above: Performed By: #### 1 0070, 07583, 48104, 43265 #### [facility] [address] [facility]. [address] MCH (RBC) [Entitic mass] 31.2 pg Normal 27.0-33.0 [facility] Comment on above: Performed By: #### 1 0070, 83674, 86517, 61561 #### [facility] [address] MCHC (RBC) [Mass/Vol] 33.7 g/dL Normal 32.0-35.0 [facility] Comment on above: Performed By: #### 1 0070, 84673, 63892, 12856 #### [facility] [address] MCV (RBC) [Entitic vol] 92.7 fL Normal 82.0-98.0 [facility] Comment on above: Performed By: #### 1 0070, 50963, 35267, 53596 #### [facility] [address] [place] [address], [facility] Monocytes (Bld) [#/Vol] 0.9 10*3/uL Normal 0.1-1.0 [facility] Comment on above: Performed By: #### 1 0070, 49426, 70926, 00716 #### [facility] [address] MONOS 7.0 % Normal 5.0-12.0 [facility] Comment on above: Performed By: #### 1 0070, 08466, 06831, 15668 #### [facility] [address] Neutrophils/100 WBC (Bld) 83.8 % High 40.0-72.0 [facility] Comment on above: Performed By: #### 1 0070, 45013, 15487, 58135 #### [facility] [address] [place] [address], [facility] Nucleated RBC/100 WBC (Bld) [Ratio] 0 % Normal 0-0 [facility] Comment on above: Performed By: #### 1 0070, 38766, 45810, 52809 #### [facility] [address] [place] [address], [facility] PLAT CNT 198 10*3/uL Normal 150-400 [facility] Comment on above: Performed By: #### 1 0070, 12311, 74783, 69162 #### [facility] [address] [place] [address], [facility] RBC (Bld) [#/Vol] 4.77 10*6/uL Normal 4.20-5.70 [facility] Comment on above: Performed By: #### 1 0070, 74518, 23169, 13597 #### [facility] [address] [place] [address], [facility] WBC (Bld) [#/Vol] 12.15 10*3/uL High 4.00-10.60 [facility] Comment on above: Performed By: #### 1 0070, 09852, 87325, 62223 #### [facility] [address] [place] [address], [facility] LIVER BATTERYon 07-27-2021 Albumin [Mass/Vol] 3.3 g/dL Low 3.5-5.7 [facility] Comment on above: Order Comment: No: D o not add to previous draw Performed By: #### 1 0070, 23431, 89197, 04867 #### [facility] [address] [place] [address], [facility] ALKALINE PHOSPH 124 IU/L High 34-104 [facility] Comment on above: Order Comment: No: D o not add to previous draw Performed By: #### 1 0070, 83384, 09183, 17737 #### [facility] [address] [place] [address], [place] ALT [Catalytic activity/Vol] 58 U/L High 7-52 [facility] Comment on above: Order Comment: No: D o not add to previous draw Performed By: #### 1 0070, 61967, 49571, 26824 #### [facility] [address] [place] [address], [place] AST [Catalytic activity/Vol] 48 U/L High 13-39 [facility] Comment on above: Order Comment: No: D o not add to previous draw Performed By: #### 1 0070, 81820, 86067, 85640 #### [facility] [address] [place] [address], [place] Bilirubin [Mass/Vol] 0.8 mg/dL Normal 0.3-1.0 [facility] Comment on above: Order Comment: No: D o not add to previous draw Performed By: #### 1 0070, 60056, 67727, 40715 #### [facility] [address] [place] [address], [facility] Bilirubin.direct [Mass/Vol] 0.3 mg/dL High 0.0-0.2 [facility] Comment on above: Order Comment: No: D o not add to previous draw Performed By: #### 1 0070, 58807, 86108, 47785 #### [facility] [address] [place] [address], [facility] Protein [Mass/Vol] 6.2 g/dL Normal 6.0-8.3 [facility] Comment on above: Order Comment: No: D o not add to previous draw Performed By: #### 1 0070, 18848, 10563, 38857 #### [facility] [address] [place] [address], [facility] MAGNESIUM BLOODon 07-27-2021 Magnesium [Mass/Vol] 1.8 mg/dL Low 1.9-2.7 [facility] Comment on above: Order Comment: No: D o not add to previous draw Performed By: #### 1 0070, 63315, 67888, 89634 #### [facility] [address] [place] [address], [facility] PHOSPHORUS BLOODon Phosphate [Mass/Vol] 2.9 mg/dL Normal 2.5-5.0 [facility] Comment on above: Order Comment: No: D o not add to previous draw Performed By: #### 1 0070, 57739, 49340, 25518 #### [facility] [address] [place] [address], [place] POC GLUCOSE LABon 07-27-2021 Glucose [Mass/Vol] 260 mg/dL High 70-100 [facility] Comment on above: Performed By: #### 8 5499 #### [facility] [address] Glucose [Mass/Vol] 225 mg/dL High 70-100 [facility] Comment on above: Performed By: #### 1 0, 42956, 81835, 89368 #### [facility] [address] PROTHROMBIN TIMEon 1 INR Coag (PPP) [Relative time] 1.22 {INR} High 0.91-1.16 [facility] Comment on above: Order Comment: No: [...] CHEST 1995;108:231S-246S. Performed By: #### 1 0, 62379, 55855, 55921 #### [facility] [address] [place] [address], [facility] PT Coag (PPP) [Time] 15.4 s High 12.3-14.8 [facility] Comment on above: Order Comment: No: D o not add to previous draw Result Comment: ALL RESULTS MUST BE INTERPRETED WITH RESPECT TO BLOOD DRAWING ARTIFACT OR DILUTION ERROR OF ANTICOAGULANT AT THE TIME OF SAMPLING. Performed By: #### 1 0070, 33780, 43041, 71389 #### [facility] [address] [place] [address], [facility] BASIC METABOLIC PANELon 10-2 Calcium [Mass/Vol] 8.5 mg/dL Low 8.6-10.3 [facility] Comment on above: Order Comment: No: D o not add to previous draw Performed By: #### 8 5499 #### [facility] [address] [place] [address], [facility] Chloride [Moles/Vol] 108 mmol/L High 98-107 [facility] Comment on above: Order Comment: No: D o not add to previous draw Performed By: #### 8 5499 #### [facility] [address] [place] [address], [facility] CO2 [Moles/Vol] 24 mmol/L Normal 21-31 [facility] Comment on above: Order Comment: No: D o not add to previous draw Performed By: #### 8 5499 #### [facility] [address] [place] [id number], [facility] Creatinine [Mass/Vol] 1.23 mg/dL Normal 0.70-1.30 [facility] Comment on above: Order Comment: No: D o not add to previous draw Performed By: #### 8 5499 #### [facility] [address] [place] [address], [facility] eGFR- non- 60 ml/min/1.73sq m Abnormal >60 [facility] Comment on above: Order Comment: No: D o not add to previous draw Performed By: #### 8 5499 #### [facility] [address] [place] [address], [facility] GFR/1.73 sq M.predicted among blacks MDRD (S/P/Bld) [Vol rate/Area] mL/min/{1.73_m2} Normal >60 [facility] Comment on above: Order Comment: No: D o not add to previous draw Performed By: #### 8 5499 #### [facility] [address] [place] [address], [place] Glucose [Mass/Vol] 141 mg/dL High 70-100 [facility] Comment on above: Order Comment: No: D o not add to previous draw Performed By: #### 8 5499 #### [facility] [address] [place] [address], [place] Potassium [Moles/Vol] 3.5 mmol/L Normal 3.5-5.1 [facility] Comment on above: Order Comment: No: D o not add to previous draw Performed By: #### 8 5499 #### [facility] [address] [place] [address], [place] Sodium [Moles/Vol] 139 mmol/L Normal 136-145 [facility] Comment on above: Order Comment: No: D o not add to previous draw Performed By: #### 8 5499 #### [facility] [address] [place] [address], [place] Urea nitrogen [Mass/Vol] 18 mg/dL Normal 7-25 [facility] Comment on above: Order Comment: No: D o not add to previous draw Performed By: #### 8 5499 #### [facility] [address] [place] [address], [facility] CBC COMPLETE BLOOD COUNTon Erythrocyte distribution width (RBC) [Ratio] 13.2 % Normal 11.5-15.0 [facility] Comment on above: Order Comment: No: D o not add to previous draw Performed By: #### 1 0070, 65953, 35239, 41993 #### [facility] [address] [place] [address], [place] Hematocrit (Bld) [Volume fraction] 42.7 % Normal 39.0-50.0 [facility] Comment on above: Order Comment: No: D o not add to previous draw Performed By: #### 1 0070, 93578, 18301, 94781 #### [facility] [address] [place] [address], [facility] Hemoglobin (Bld) [Mass/Vol] 14.5 g/dL Normal 13.0-17.0 [facility] Comment on above: Order Comment: No: D o not add to previous draw Performed By: #### 1 0070, 15146, 47063, 29717 #### [facility] [address] [address], [facility] MCH (RBC) [Entitic mass] 32.0 pg Normal 27.0-33.0 [facility] Comment on above: Order Comment: No: D o not add to previous draw Performed By: #### 1 0070, 30186, 78245, 69617 #### [facility] [address] [facility] [place] [address], [facility] MCHC (RBC) [Mass/Vol] 34.0 g/dL Normal 32.0-35.0 [facility] Comment on above: Order Comment: No: D o not add to previous draw Performed By: #### 1 0070, 15707, 17150, 78490 #### [facility] [address] [facility] [id number], [facility] MCV (RBC) [Entitic vol] 94.3 fL Normal 82.0-98.0 [facility] Comment on above: Order Comment: No: D o not add to previous draw Performed By: #### 1 0070, 50424, 48784, 73463 #### [facility] [address] [facility] [place] [address], [facility] Nucleated RBC/100 WBC (Bld) [Ratio] 0 % Normal 0-0 [facility] Comment on above: Order Comment: No: D o not add to previous draw Performed By: #### 1 0070, 35331, 96420, 01774 #### [facility] [address] [place] [address], [facility] PLAT CNT 179 10*3/uL Normal 150-400 [facility] Comment on above: Order Comment: No: D o not add to previous draw Performed By: #### 1 0070, 30406, 46078, 34759 #### [facility] [address] [place] [address], [facility] RBC (Bld) [#/Vol] 4.53 10*6/uL Normal 4.20-5.70 [facility] Comment on above: Order Comment: No: D o not add to previous draw Performed By: #### 1 0070, 31425, 66642, 81011 #### [facility] [address] [place] [address], [facility] WBC (Bld) [#/Vol] 7.86 10*3/uL Normal 4.00-10.60 [facility] Comment on above: Order Comment: No: D o not add to previous draw Performed By: #### 1 0070, 32760, 72567, 18650 #### [facility] [address] [place] [address], [facility] LIVER BATTERYon 07-26-2021 Albumin [Mass/Vol] 3.2 g/dL Low 3.5-5.7 [facility] Comment on above: Order Comment: No: D o not add to previous draw Performed By: #### 0 0071, 38218 #### [facility] [address] [place] [address], [facility] ALKALINE PHOSPH 114 IU/L High 34-104 [facility] Comment on above: Order Comment: No: D o not add to previous draw Performed By: #### 0 0071, 75766 #### [facility] [address] [place] [address], [place] ALT [Catalytic activity/Vol] 37 U/L Normal 7-52 [facility] Comment on above: Order Comment: No: D o not add to previous draw Performed By: #### 0 0071, 81072 #### [facility] [address] [place] [address], [facility] AST [Catalytic activity/Vol] 28 U/L Normal 13-39 [facility] Comment on above: Order Comment: No: D o not add to previous draw Performed By: #### 0 0071, 36579 #### [facility] [address] [place] [address], [place] Bilirubin [Mass/Vol] 0.6 mg/dL Normal 0.3-1.0 [facility] Comment on above: Order Comment: No: D o not add to previous draw Performed By: #### 0 0071, 00040 #### [facility] [address] [place] [address], [place] Bilirubin.direct [Mass/Vol] 0.1 mg/dL Normal 0.0-0.2 [facility] Comment on above: Order Comment: No: D o not add to previous draw Performed By: #### 0 0071, 63363 #### [facility] [address] [place] [address], [place] Protein [Mass/Vol] 6.3 g/dL Normal 6.0-8.3 [facility] Comment on above: Order Comment: No: D o not add to previous draw Performed By: #### 0 0071, 61218 #### [facility] [address] Operative Reporton Operative Report MR#: [id number] [facility] Pt. Name: Andry Pierre Room #: [id number] Discharge Date: Birthdate: 1960 OPERATIVE REPORT DATE [...] Olivier M.D. Date Trans: 07/26/2021 04:31 P/ VALENTINE_JN:[id number] cc: Say Mccormick M.D. [address] [place] [address] Normal [facility] POC GLUCOSE LABon 07-26-2021 Glucose [Mass/Vol] 155 mg/dL High 70-100 [facility] Comment on above: Performed By: #### 1 0070, 13036, 34294, 42485 #### [facility] [address] [facility] [place] [address], [facility] Glucose [Mass/Vol] 149 mg/dL High 70-100 [facility] Comment on above: Performed By: #### 8 5499 #### [facility] [address] [facility] [place] [address], [facility] Glucose [Mass/Vol] 123 mg/dL High 70-100 [facility] Comment on above: Performed By: #### 1 0070, 26757, 70233, 26530 #### [facility] [address] [facility] [place] [address], [facility] Glucose [Mass/Vol] 126 mg/dL High 70-100 [facility] Comment on above: Performed By: #### 8 5499 #### [facility] [address] [facility]. [address] PROTHROMBIN TIMEon INR Coag (PPP) [Relative time] 1.20 {INR} High 0.91-1.16 [facility] Comment on above: Order Comment: No: D o not add to previous draw Result Comment: ACC P RECOMMENDED INR FOR WARFARIN THERAPY ------ [...] CHEST 1995;108:231S-246S. Performed By: #### 1 0070, 18278, 55592, 86899 #### [facility] [address] PT Coag (PPP) [Time] 15.2 s High 12.3-14.8 [facility] Comment on above: Order Comment: No: D o not add to previous draw Result Comment: ALL RESULTS MUST BE INTERPRETED WITH RESPECT TO BLOOD DRAWING ARTIFACT OR DILUTION ERROR OF ANTICOAGULANT AT THE TIME OF SAMPLING. Performed By: #### 1 0070, 74846, 22726, 65529 #### [facility] [address] APTTon 07-25-2021 aPTT Coag (Bld) [Time] 29.3 s Normal 25.0-35.0 [facility] Comment on above: Order Comment: [...] THIS PURPOSE. Performed By: #### 1 0070, 90173, 15639, 47073 #### [facility] [address] aPTT Coag (Bld) [Time] 28.7 s Normal 25.0-35.0 [facility] Comment on above: Order Comment: No: [...] THIS PURPOSE. Performed By: #### 1 0070, 87118, 55168, 45566 #### [facility] [address] BASIC METABOLIC PANELon 10-2 0-2020 Calcium [Mass/Vol] 8.3 mg/dL Low 8.6-10.3 [facility] Comment on above: Order Comment: No: D o not add to previous draw Performed By: #### 1 0070, 00424, 35983, 90550 #### [facility] [address] [place] [address], [facility] Chloride [Moles/Vol] 111 mmol/L High 98-107 [facility] Comment on above: Order Comment: No: D o not add to previous draw Performed By: #### 1 0070, 49411, 17689, 50452 #### [facility] [address] [place] [address], [facility] CO2 [Moles/Vol] 26 mmol/L Normal 21-31 [facility] Comment on above: Order Comment: No: D o not add to previous draw Performed By: #### 1 0070, 03830, 15316, 58692 #### [facility] [address] [place] [address], [facility] Creatinine [Mass/Vol] 1.25 mg/dL Normal 0.70-1.30 [facility] Comment on above: Order Comment: No: D o not add to previous draw Performed By: #### 1 0070, 30896, 11616, 57527 #### [facility] [address] [place] [address], [place] eGFR- non- 59 ml/min/1.73sq m Abnormal >60 [facility] Comment on above: Order Comment: No: D o not add to previous draw Performed By: #### 1 0070, 29587, 46554, 96199 #### [facility] [address] [place] [address], [place] GFR/1.73 sq M.predicted among blacks MDRD (S/P/Bld) [Vol rate/Area] mL/min/{1.73_m2} Normal >60 [facility] Comment on above: Order Comment: No: D o not add to previous draw Performed By: #### 1 0070, 51211, 03552, 96588 #### [facility] [address] [place] [address], [place] Glucose [Mass/Vol] 107 mg/dL High 70-100 [facility] Comment on above: Order Comment: No: D o not add to previous draw Performed By: #### 1 0070, 41077, 10868, 53108 #### [facility] [address] [place] [address], [place] Potassium [Moles/Vol] 3.6 mmol/L Normal 3.5-5.1 [facility] Comment on above: Order Comment: No: D o not add to previous draw Performed By: #### 1 0070, 66560, 73620, 85856 #### [facility] [address] [place] [address], [place] Sodium [Moles/Vol] 143 mmol/L Normal 136-145 [facility] Comment on above: Order Comment: No: D o not add to previous draw Performed By: #### 1 0070, 12938, 13348, 90436 #### [facility] [address] [place] [address], [place] Urea nitrogen [Mass/Vol] 22 mg/dL Normal 7-25 [facility] Comment on above: Order Comment: No: D o not add to previous draw Performed By: #### 1 0070, 06114, 50153, 46154 #### [facility] [address] [place] [id number], [facility] CBC COMPLETE BLOOD COUNTon Erythrocyte distribution width (RBC) [Ratio] 13.3 % Normal 11.5-15.0 [facility] Comment on above: Order Comment: No: D o not add to previous draw Performed By: #### 1 0070, 90909, 54811, 98484 #### [facility] [address] [place] [address], [facility] Hematocrit (Bld) [Volume fraction] 46.9 % Normal 39.0-50.0 [facility] Comment on above: Order Comment: No: D o not add to previous draw Performed By: #### 1 0070, 32871, 38605, 51488 #### [facility] [address] [place] [address], [facility] Hemoglobin (Bld) [Mass/Vol] 15.4 g/dL Normal 13.0-17.0 [facility] Comment on above: Order Comment: No: D o not add to previous draw Performed By: #### 1 0070, 21138, 02379, 82302 #### [facility] [address] [place] [address], [place] MCH (RBC) [Entitic mass] 31.3 pg Normal 27.0-33.0 [facility] Comment on above: Order Comment: No: D o not add to previous draw Performed By: #### 1 0070, 77561, 30035, 02745 #### [facility] [address] [place] [address], [place] MCHC (RBC) [Mass/Vol] 32.8 g/dL Normal 32.0-35.0 [facility] Comment on above: Order Comment: No: D o not add to previous draw Performed By: #### 1 0070, 90312, 54970, 41279 #### [facility] [address] [place] [address], [facility] MCV (RBC) [Entitic vol] 95.3 fL Normal 82.0-98.0 [facility] Comment on above: Order Comment: No: D o not add to previous draw Performed By: #### 1 0070, 28431, 91792, 17042 #### [facility] [address] [place] [id number], [facility] Nucleated RBC/100 WBC (Bld) [Ratio] 0 % Normal 0-0 [facility] Comment on above: Order Comment: No: D o not add to previous draw Performed By: #### 1 0070, 96859, 82190, 48774 #### [facility] [address] [facility] [place] [address], [facility] PLAT CNT 183 10*3/uL Normal 150-400 [facility] Comment on above: Order Comment: No: D o not add to previous draw Performed By: #### 1 0070, 71041, 47868, 88319 #### [facility] [address] [facility] [address], [facility] RBC (Bld) [#/Vol] 4.92 10*6/uL Normal 4.20-5.70 [facility] Comment on above: Order Comment: No: D o not add to previous draw Performed By: #### 1 0070, 65860, 20699, 44892 #### [facility] [address] [address], [place] WBC (Bld) [#/Vol] 9.70 10*3/uL Normal 4.00-10.60 [facility] Comment on above: Order Comment: No: D o not add to previous draw Performed By: #### 1 0070, 92082, 55904, 73214 #### [facility] [address] [place] [address], [facility] LIPASE BLOODon 07-25-2021 LIPASE 34 Units/L Normal 11-82 [facility] Comment on above: Order Comment: No: D o not add to previous draw Performed By: #### 1 0070, 49052, 87510, 67584 #### [facility] [address] [place] [address], [place] LIVER BATTERYon 07-25-2021 Albumin [Mass/Vol] 3.0 g/dL Low 3.5-5.7 [facility] Comment on above: Order Comment: No: D o not add to previous draw Performed By: #### 1 0070, 05249, 47337, 81752 #### [facility] [address] [place] [address], [facility] ALKALINE PHOSPH 113 IU/L High 34-104 [facility] Comment on above: Order Comment: No: D o not add to previous draw Performed By: #### 1 0070, 21176, 54862, 72284 #### [facility] [address] [place] [address], [place] ALT [Catalytic activity/Vol] 37 U/L Normal 7-52 [facility] Comment on above: Order Comment: No: D o not add to previous draw Performed By: #### 1 0070, 10639, 18345, 34722 #### [facility] [address] [place] [address], [place] AST [Catalytic activity/Vol] 36 U/L Normal 13-39 [facility] Comment on above: Order Comment: No: D o not add to previous draw Performed By: #### 1 0070, 55189, 65472, 30693 #### [facility] [address] [place] [address], [place] Bilirubin [Mass/Vol] 0.6 mg/dL Normal 0.3-1.0 [facility] Comment on above: Order Comment: No: D o not add to previous draw Performed By: #### 1 0070, 91499, 17135, 10351 #### [facility] [address] [place] [address], [place] Bilirubin.direct [Mass/Vol] 0.1 mg/dL Normal 0.0-0.2 [facility] Comment on above: Order Comment: No: D o not add to previous draw Performed By: #### 1 0070, 98409, 77207, 87038 #### [facility] [address] [place] [address], [place] Protein [Mass/Vol] 5.3 g/dL Low 6.0-8.3 [facility] Comment on above: Order Comment: No: D o not add to previous draw Performed By: #### 1 0070, 32741, 12101, 34204 #### [facility] [address] [place] [address], [place] POC GLUCOSE LABon 07-25-2021 Glucose [Mass/Vol] 388 mg/dL High 70-100 [facility] Comment on above: Performed By: #### 1 0070, 11235, 03542, 81613 #### [facility] [address] [place] [address], [place] Glucose [Mass/Vol] 173 mg/dL High 70-100 [facility] Comment on above: Performed By: #### 8 5499 #### [facility] [address] [place] [address], [place] Glucose [Mass/Vol] 178 mg/dL High 70-100 [facility] Comment on above: Performed By: #### 8 5499 #### [facility] [address] [place] [address], [place] Glucose [Mass/Vol] 106 mg/dL High 70-100 [facility] Comment on above: Performed By: #### 1 0070, 28755, 47865, 48539 #### [facility] [address] [place] [address], [place] PROTHROMBIN TIMEon 10-20-202 1 INR Coag (PPP) [Relative time] 1.30 {INR} High 0.91-1.16 [facility] Comment on above: Order Comment: No: [...] CHEST 1995;108:231S-246S. Performed By: #### 1 0070, 93950, 78994, 44187 #### [facility] [address] PT Coag (PPP) [Time] 16.2 s High 12.3-14.8 [facility] Comment on above: Order Comment: No: D o not add to previous draw Result Comment: ALL RESULTS MUST BE INTERPRETED WITH RESPECT TO BLOOD DRAWING ARTIFACT OR DILUTION ERROR OF ANTICOAGULANT AT THE TIME OF SAMPLING. Performed By: #### 1 0070, 10727, 21903, 51097 #### [facility] [address] UFH HEPARIN ASSAYon 07-25-20 21 UNFRACTIONATED HEPARIN <0.10 Critically low 0.30-0.70 [facility] Comment on above: Result Comment: Resu lts called. Accur[place] 4D [place] [id number], -Jul-2021. Patient is not on anything that would raise the uFH value per nurse Caitlin. Rivaroxaban and Apixaban will interfere with the anti Xa assay used to monitor UFH and LMWH. Performed By: #### 1 0070, 08314, 41811, 46446 #### [facility] [address] [place] [address], [facility] UNFRACTIONATED HEPARIN <0.10 Critically low 0.30-0.70 [facility] Comment on above: Result Comment: Resu lt checked and called. Accurately read back by Caitlin Koch RN at 1024 Rivaroxaban and Apixaban will interfere with the anti Xa assay used to monitor UFH and LMWH. Performed By: #### 1 0070, 46806, 97527, 72775 #### [facility] [address] [place] [address], [facility] BASIC METABOLIC PANELon 10-1 Calcium [Mass/Vol] 8.7 mg/dL Normal 8.6-10.3 [facility] Comment on above: Order Comment: No: D o not add to previous draw Performed By: #### 0 0071, 00863 #### [facility] [address] [place] [address], [place] Chloride [Moles/Vol] 105 mmol/L Normal 98-107 [facility] Comment on above: Order Comment: No: D o not add to previous draw Performed By: #### 0 0071, 71349 #### [facility] [address] [place] [address], [place] CO2 [Moles/Vol] 30 mmol/L Normal 21-31 [facility] Comment on above: Order Comment: No: D o not add to previous draw Performed By: #### 0 0071, 91373 #### [facility] [address] [place] [address], [place] Creatinine [Mass/Vol] 1.52 mg/dL High 0.70-1.30 [facility] Comment on above: Order Comment: No: D o not add to previous draw Performed By: #### 0 0071, 43696 #### [facility] [address] [place] [address], [place] eGFR- 57 ml/min/1.73sq m Abnormal >60 [facility] Comment on above: Order Comment: No: D o not add to previous draw Performed By: #### 0 0071, 18521 #### [facility] [address] [place] [address], [place] eGFR- non- 47 ml/min/1.73sq m Abnormal >60 [facility] Comment on above: Order Comment: No: D o not add to previous draw Performed By: #### 0 0071, 22957 #### [facility] [address] [place] [address], [place] Glucose [Mass/Vol] 331 mg/dL High 70-100 [facility] Comment on above: Order Comment: No: D o not add to previous draw Performed By: #### 0 0071, 19995 #### [facility] [address] [place] [address], [place] Potassium [Moles/Vol] 4.3 mmol/L Normal 3.5-5.1 [facility] Comment on above: Order Comment: No: D o not add to previous draw Performed By: #### 0 0071, 84318 #### [facility] [address] [place] [address], [place] Sodium [Moles/Vol] 139 mmol/L Normal 136-145 [facility] Comment on above: Order Comment: No: D o not add to previous draw Performed By: #### 0 0071, 61075 #### [facility] [address] [place] [address], [place] Urea nitrogen [Mass/Vol] 26 mg/dL High 7-25 [facility] Comment on above: Order Comment: No: D o not add to previous draw Performed By: #### 0 0071, 43828 #### [facility] [address] [place] [address], [facility] CBC COMPLETE BLOOD COUNTon Erythrocyte distribution width (RBC) [Ratio] 13.2 % Normal 11.5-15.0 [facility] Comment on above: Order Comment: No: D o not add to previous draw Performed By: #### 1 0070, 28440, 09733, 21569 #### [facility] [address] [place] [address], [facility] Hematocrit (Bld) [Volume fraction] 42.9 % Normal 39.0-50.0 [facility] Comment on above: Order Comment: No: D o not add to previous draw Performed By: #### 1 0070, 44360, 17951, 02694 #### [facility] [address] [place] [address], [facility] Hemoglobin (Bld) [Mass/Vol] 13.7 g/dL Normal 13.0-17.0 [facility] Comment on above: Order Comment: No: D o not add to previous draw Performed By: #### 1 0070, 05000, 07752, 53240 #### [facility] [address] [place] [address], [facility] MCH (RBC) [Entitic mass] 30.9 pg Normal 27.0-33.0 [facility] Comment on above: Order Comment: No: D o not add to previous draw Performed By: #### 1 0070, 57091, 48139, 63836 #### [facility] [address] [place] [address], [place] MCHC (RBC) [Mass/Vol] 31.9 g/dL Low 32.0-35.0 [facility] Comment on above: Order Comment: No: D o not add to previous draw Performed By: #### 1 0070, 98201, 94884, 96555 #### [facility] [address] [place] [address], [facility] MCV (RBC) [Entitic vol] 96.6 fL Normal 82.0-98.0 [facility] Comment on above: Order Comment: No: D o not add to previous draw Performed By: #### 1 0070, 56435, 68292, 27710 #### [facility] [address] [place] [address], [facility] Nucleated RBC/100 WBC (Bld) [Ratio] 0 % Normal 0-0 [facility] Comment on above: Order Comment: No: D o not add to previous draw Performed By: #### 1 0070, 15360, 74601, 46014 #### [facility] [address] [place] [address], [facility] PLAT CNT 184 10*3/uL Normal 150-400 [facility] Comment on above: Order Comment: No: D o not add to previous draw Performed By: #### 1 0070, 15470, 32220, 45572 #### [facility] [address] [place] [address], [facility] RBC (Bld) [#/Vol] 4.44 10*6/uL Normal 4.20-5.70 [facility] Comment on above: Order Comment: No: D o not add to previous draw Performed By: #### 1 0070, 45019, 61988, 13708 #### [facility] [address] [place] [address], [facility] WBC (Bld) [#/Vol] 8.42 10*3/uL Normal 4.00-10.60 [facility] Comment on above: Order Comment: No: D o not add to previous draw Performed By: #### 1 0070, 99433, 41446, 23633 #### [facility] [address] [place] [address], [facility] ERCPon 07-24-2021 [facility] Department of Radiology [address] [place] [address] Patient Name: ANDRY PIERRE : 1960 Sex: M Age: Race: White Pt. Location: [id number] Patient Status: I Ordered Date: 07/24/2021 7:00:00 [...] details. Electronically signed: Khoa Chahal. Transcribed by: [email or web address], User Resident: Electronically Signed by: KHOA CHAHAL @ 07/25/2021 08:48 AM Normal [facility] Comment on above: Order Comment: ERCP Endoscopy Reporton Endoscopy Report MR#: [id number] [facility] Pt. Name: Andry Pierre Surgery Date: 07/24/2021 Room #: 4CD [id number] Date of : 1960 PROCEDURE NOTE ATTENDING: Amy Remy M.D. [employer] SPECIALIST: Cyrus Decker MD PROCEDURE: ERCP with biliary [...] Decker MD Date Trans: 07/24/2021 09:24 P/michaela [id number] cc: Say Mccormick M.D. [address] [facility] [address] Normal [facility] LIVER BATTERYon 07-24-2021 Albumin [Mass/Vol] 3.3 g/dL Low 3.5-5.7 [facility] Comment on above: Order Comment: No: D o not add to previous draw Performed By: #### 0 0071, 22351 #### [facility] [address] ALKALINE PHOSPH 106 IU/L High 34-104 [facility] Comment on above: Order Comment: No: D o not add to previous draw Performed By: #### 0 0071, 11809 #### [facility] [address] ALT [Catalytic activity/Vol] 26 U/L Normal 7-52 [facility] Comment on above: Order Comment: No: D o not add to previous draw Performed By: #### 0 0071, 49613 #### [facility] [address] [place] [address], [place] AST [Catalytic activity/Vol] 17 U/L Normal 13-39 [facility] Comment on above: Order Comment: No: D o not add to previous draw Performed By: #### 0 0071, 82241 #### [facility] [address] [place] [address], [place] Bilirubin [Mass/Vol] 0.3 mg/dL Normal 0.3-1.0 [facility] Comment on above: Order Comment: No: D o not add to previous draw Performed By: #### 0 0071, 28967 #### [facility] [address] [place] [address], [place] Bilirubin.direct [Mass/Vol] 0.0 mg/dL Normal 0.0-0.2 [facility] Comment on above: Order Comment: No: D o not add to previous draw Performed By: #### 0 0071, 55804 #### [facility] [address] [place] [address], [place] Protein [Mass/Vol] 6.1 g/dL Normal 6.0-8.3 [facility] Comment on above: Order Comment: No: D o not add to previous draw Performed By: #### 0 0071, 59001 #### [facility] [address] [place] [address], [place] POC GLUCOSE LABon 07-24-2021 Glucose [Mass/Vol] 89 mg/dL Normal 70-100 [facility] Comment on above: Performed By: #### 8 5499 #### [facility] [address] [place] [address], [place] Glucose [Mass/Vol] 89 mg/dL Normal 70-100 [facility] Comment on above: Performed By: #### 1 0070, 46382, 46431, 76436 #### [facility] [address] [place] [address], [place] Glucose [Mass/Vol] 166 mg/dL High 70-100 [facility] Comment on above: Performed By: #### 8 5499 #### [facility] [address] [facility] [place] [address], [facility] Glucose [Mass/Vol] 391 mg/dL High 70-100 [facility] Comment on above: Performed By: #### 8 5499 #### [facility] [address] [facility]. [address] POC SARS COV2 ANTIGEN NEGATI VEon 07-24-2021 POC SARS COV2 ANTIGEN NEG Negative Normal NEGATIVE [facility] Comment on above: Result Comment: Nega [...] signs and symptoms consistent with COVID-19. The [employer] COVID-19 Ag Card is a lateral flow [...] Performed By: #### 8 5499 #### [facility] [address] [facility] [address] PROTHROMBIN TIMEon 1 INR Coag (PPP) [Relative time] 1.53 {INR} High 0.91-1.16 [facility] Comment on above: Order Comment: No: [...] CHEST 1995;108:231S-246S. Performed By: #### 1 0070, 72655, 03798, 32693 #### [facility] [address] [facility] [place] [address], [facility] PT Coag (PPP) [Time] 18.3 s High 12.3-14.8 [facility] Comment on above: Order Comment: No: D o not add to previous draw Result Comment: ALL RESULTS MUST BE INTERPRETED WITH RESPECT TO BLOOD DRAWING ARTIFACT OR DILUTION ERROR OF ANTICOAGULANT AT THE TIME OF SAMPLING. Performed By: #### 1 0070, 25364, 13804, 11143 #### [facility] [address] [place] [address], [facility] COMP METABOLIC PANELon 07-23 Albumin [Mass/Vol] 3.5 g/dL Normal 3.5-5.7 [facility] Comment on above: Order Comment: No: D o not add to previous draw Performed By: #### 8 5499 #### [facility] [address] [place] [address], [facility] ALKALINE PHOSPH 122 IU/L High 34-104 [facility] Comment on above: Order Comment: No: D o not add to previous draw Performed By: #### 8 5499 #### [facility] [address] [place] [address], [place] ALT [Catalytic activity/Vol] 32 U/L Normal 7-52 [facility] Comment on above: Order Comment: No: D o not add to previous draw Performed By: #### 8 5499 #### [facility] [address] [place] [address], [place] AST [Catalytic activity/Vol] 22 U/L Normal 13-39 [facility] Comment on above: Order Comment: No: D o not add to previous draw Performed By: #### 8 5499 #### [facility] [address] [place] [address], [place] Bilirubin [Mass/Vol] 0.4 mg/dL Normal 0.3-1.0 [facility] Comment on above: Order Comment: No: D o not add to previous draw Performed By: #### 8 5499 #### [facility] [address] [place] [address], [place] Calcium [Mass/Vol] 8.5 mg/dL Low 8.6-10.3 [facility] Comment on above: Order Comment: No: D o not add to previous draw Performed By: #### 8 5499 #### [facility] [address] [place] [address], [place] Chloride [Moles/Vol] 110 mmol/L High 98-107 [facility] Comment on above: Order Comment: No: D o not add to previous draw Performed By: #### 8 5499 #### [facility] [address] [place] [address], [place] CO2 [Moles/Vol] 23 mmol/L Normal 21-31 [facility] Comment on above: Order Comment: No: D o not add to previous draw Performed By: #### 8 5499 #### [facility] [address] [place] [address], [place] Creatinine [Mass/Vol] 1.33 mg/dL High 0.70-1.30 [facility] Comment on above: Order Comment: No: D o not add to previous draw Performed By: #### 8 5499 #### [facility] [address] [place] [address], [place] eGFR- non- 55 ml/min/1.73sq m Abnormal >60 [facility] Comment on above: Order Comment: No: D o not add to previous draw Performed By: #### 8 5499 #### [facility] [address] [place] [address], [place] GFR/1.73 sq M.predicted among blacks MDRD (S/P/Bld) [Vol rate/Area] mL/min/{1.73_m2} Normal >60 [facility] Comment on above: Order Comment: No: D o not add to previous draw Performed By: #### 8 5499 #### [facility] [address] [place] [address], [place] Glucose [Mass/Vol] 198 mg/dL High 70-100 [facility] Comment on above: Order Comment: No: D o not add to previous draw Performed By: #### 8 5499 #### [facility] [address] [place] [address], [place] Potassium [Moles/Vol] 3.5 mmol/L Normal 3.5-5.1 [facility] Comment on above: Order Comment: No: D o not add to previous draw Performed By: #### 8 5499 #### [facility] [address] [place] [address], [place] Protein [Mass/Vol] 6.3 g/dL Normal 6.0-8.3 [facility] Comment on above: Order Comment: No: D o not add to previous draw Performed By: #### 8 5499 #### [facility] [address] [place] [address], [place] Sodium [Moles/Vol] 142 mmol/L Normal 136-145 [facility] Comment on above: Order Comment: No: D o not add to previous draw Performed By: #### 8 5499 #### [facility] [address] [place] [address], [place] Urea nitrogen [Mass/Vol] 25 mg/dL Normal 7-25 [facility] Comment on above: Order Comment: No: D o not add to previous draw Performed By: #### 8 5499 #### [facility] [address] [place] [address], [place] POC GLUCOSE LABon 07-23-2021 Glucose [Mass/Vol] 325 mg/dL High 70-100 [facility] Comment on above: Performed By: #### 8 5499 #### [facility] [address] [place] [address], [place] Glucose [Mass/Vol] 290 mg/dL High 70-100 [facility] Comment on above: Performed By: #### 1 0070, 83048, 24605, 92141 #### [facility] [address] [place] [address], [place] Glucose [Mass/Vol] 253 mg/dL High 70-100 [facility] Comment on above: Performed By: #### 1 0070, 47133, 50981, 11790 #### [facility] [address] [place] [address], [place] Glucose [Mass/Vol] 211 mg/dL High 70-100 [facility] Comment on above: Performed By: #### 8 5499 #### [facility] [address] [place] [address], [place] PROTHROMBIN TIMEon 1 INR Coag (PPP) [Relative time] 1.92 {INR} High 0.91-1.16 [facility] Comment on above: Order Comment: Unkno [...] Performed By: #### 8 5499 #### [facility] [address] PT Coag (PPP) [Time] 21.9 s High 12.3-14.8 [facility] Comment on above: Order Comment: Dirk chu Result Comment: ALL RESULTS MUST BE INTERPRETED WITH RESPECT TO BLOOD DRAWING ARTIFACT OR DILUTION ERROR OF ANTICOAGULANT AT THE TIME OF SAMPLING. Performed By: #### 8 5499 #### [facility] [address] APTTon 07-22-2021 aPTT Coag (Bld) [Time] 37.1 s High 25.0-35.0 [facility] Comment on above: Order Comment: No: [...] THIS PURPOSE. Performed By: #### 1 0070, 65513, 39921, 17563 #### [facility] [address] [place] [address], [facility] BASIC METABOLIC PANELon 10- Calcium [Mass/Vol] 8.3 mg/dL Low 8.6-10.3 [facility] Comment on above: Order Comment: No: D o not add to previous draw Performed By: #### 8 5499 #### [facility] [address] [place] [address], [facility] Chloride [Moles/Vol] 109 mmol/L High 98-107 [facility] Comment on above: Order Comment: No: D o not add to previous draw Performed By: #### 8 5499 #### [facility] [address] [place] [address], [place] CO2 [Moles/Vol] 28 mmol/L Normal 21-31 [facility] Comment on above: Order Comment: No: D o not add to previous draw Performed By: #### 8 5499 #### [facility] [address] [place] [address], [facility] Creatinine [Mass/Vol] 1.48 mg/dL High 0.70-1.30 [facility] Comment on above: Order Comment: No: D o not add to previous draw Performed By: #### 8 5499 #### [facility] [address] [place] [address], [facility] eGFR- 59 ml/min/1.73sq m Abnormal >60 [facility] Comment on above: Order Comment: No: D o not add to previous draw Performed By: #### 8 5499 #### [facility] [address] [place] [address], [facility] eGFR- non- 48 ml/min/1.73sq m Abnormal >60 [facility] Comment on above: Order Comment: No: D o not add to previous draw Performed By: #### 8 5499 #### [facility] [address] [place] [address], [place] Glucose [Mass/Vol] 216 mg/dL High 70-100 [facility] Comment on above: Order Comment: No: D o not add to previous draw Performed By: #### 8 5499 #### [facility] [address] [place] [address], [place] Potassium [Moles/Vol] 4.6 mmol/L Normal 3.5-5.1 [facility] Comment on above: Order Comment: No: D o not add to previous draw Performed By: #### 8 [id number] #### [facility] [address] [place] [address], [place] Sodium [Moles/Vol] 141 mmol/L Normal 136-145 [facility] Comment on above: Order Comment: No: D o not add to previous draw Performed By: #### 8 5499 #### [facility] [address] [place] [address], [place] Urea nitrogen [Mass/Vol] 26 mg/dL High 7-25 [facility] Comment on above: Order Comment: No: D o not add to previous draw Performed By: #### 8 5499 #### [facility] [address] [place] [address], [place] CBC COMPLETE BLOOD COUNTon Erythrocyte distribution width (RBC) [Ratio] 13.2 % Normal 11.5-15.0 [facility] Comment on above: Order Comment: No: D o not add to previous draw Performed By: #### 8 [id number] #### [facility] [address] [place] [address], [place] Hematocrit (Bld) [Volume fraction] 45.8 % Normal 39.0-50.0 [facility] Comment on above: Order Comment: No: D o not add to previous draw Performed By: #### 8 [id number] #### [facility] [address] [place] [address], [facility] Hemoglobin (Bld) [Mass/Vol] 14.8 g/dL Normal 13.0-17.0 [facility] Comment on above: Order Comment: No: D o not add to previous draw Performed By: #### 8 5499 #### [facility] [address] [place] [id number], [facility] MCH (RBC) [Entitic mass] 31.0 pg Normal 27.0-33.0 [facility] Comment on above: Order Comment: No: D o not add to previous draw Performed By: #### 8 [id number] #### [facility] [address] [place] [address], [facility] MCHC (RBC) [Mass/Vol] 32.3 g/dL Normal 32.0-35.0 [facility] Comment on above: Order Comment: No: D o not add to previous draw Performed By: #### 8 [id number] #### [facility] [address] [place] [address], [facility] MCV (RBC) [Entitic vol] 95.8 fL Normal 82.0-98.0 [facility] Comment on above: Order Comment: No: D o not add to previous draw Performed By: #### 8 [id number] #### [facility] [address] [facility] [address] Nucleated RBC/100 WBC (Bld) [Ratio] 0 % Normal 0-0 [facility] Comment on above: Order Comment: No: D o not add to previous draw Performed By: #### 8 [id number] #### [facility] [address] [place] [address], [facility] PLAT CNT 209 10*3/uL Normal 150-400 [facility] Comment on above: Order Comment: No: D o not add to previous draw Performed By: #### 8 [id number] #### [facility] [address] [place] [address], [facility] RBC (Bld) [#/Vol] 4.78 10*6/uL Normal 4.20-5.70 [facility] Comment on above: Order Comment: No: D o not add to previous draw Performed By: #### 8 [id number] #### [facility] [address] [place] [address], [facility] WBC (Bld) [#/Vol] 8.89 10*3/uL Normal 4.00-10.60 [facility] Comment on above: Order Comment: No: D o not add to previous draw Performed By: #### 8 [id number] #### [facility] [address] [place] [address], [facility] LIVER BATTERYon 07-22-2021 Albumin [Mass/Vol] 3.2 g/dL Low 3.5-5.7 [facility] Comment on above: Performed By: #### 8 [id number] #### [facility] [address] [place] [address], [facility] ALKALINE PHOSPH 111 IU/L High 34-104 [facility] Comment on above: Performed By: #### 8 5499 #### [facility] [address] ALT [Catalytic activity/Vol] 23 U/L Normal 7-52 [facility] Comment on above: Performed By: #### 8 5499 #### [facility] [address] AST [Catalytic activity/Vol] 17 U/L Normal 13-39 [facility] Comment on above: Performed By: #### 8 5499 #### [facility] [address] [place] [address], [facility] Bilirubin [Mass/Vol] 0.3 mg/dL Normal 0.3-1.0 [facility] Comment on above: Performed By: #### 8 5499 #### [facility] [address] [place] [address], [place] Bilirubin.direct [Mass/Vol] 0.0 mg/dL Normal 0.0-0.2 [facility] Comment on above: Performed By: #### 8 5499 #### [facility] [address] [place] [address], [place] Protein [Mass/Vol] 5.5 g/dL Low 6.0-8.3 [facility] Comment on above: Performed By: #### 8 5499 #### [facility] [address] [place] [address], [place] MAGNESIUM BLOODon 07-22-2021 Magnesium [Mass/Vol] 2.0 mg/dL Normal 1.9-2.7 [facility] Comment on above: Order Comment: No: D o not add to previous draw Performed By: #### 8 5499 #### [facility] [address] [place] [address], [place] PHOSPHORUS BLOODon Phosphate [Mass/Vol] 3.0 mg/dL Normal 2.5-5.0 [facility] Comment on above: Order Comment: No: D o not add to previous draw Performed By: #### 8 5499 #### [facility] [address] [place] [address], [place] POC GLUCOSE LABon 07-22-2021 Glucose [Mass/Vol] 223 mg/dL High 70-100 [facility] Comment on above: Performed By: #### 1 0070, 65995, 00679, 73659 #### [facility] [address] [place] [address], [place] Glucose [Mass/Vol] 222 mg/dL High 70-100 [facility] Comment on above: Performed By: #### 8 5499 #### [facility] [address] [place] [address], [place] Glucose [Mass/Vol] 245 mg/dL High 70-100 [facility] Comment on above: Performed By: #### 8 5499 #### [facility] [address] Glucose [Mass/Vol] 202 mg/dL High 70-100 [facility] Comment on above: Performed By: #### 1 0070, 07137, 57718, 14899 #### [facility] [address] PROTHROMBIN TIMEon 1 INR Coag (PPP) [Relative time] 2.27 {INR} High 0.91-1.16 [facility] Comment on above: Order Comment: No: [...] CHEST 1995;108:[id number]. Performed By: #### 1 0, 39241, 39541, 11093 #### [facility] [address] PT Coag (PPP) [Time] 24.9 s High 12.3-14.8 [facility] Comment on above: Order Comment: No: D o not add to previous draw Result Comment: ALL RESULTS MUST BE INTERPRETED WITH RESPECT TO BLOOD DRAWING ARTIFACT OR DILUTION ERROR OF ANTICOAGULANT AT THE TIME OF SAMPLING. Performed By: #### 1 0070, 54472, 48758, 64010 #### [facility] [address] [place] [address], [facility] Basic Metabolic Panelon 07-06 Calcium [Mass/Vol] 9.4 mg/dL Normal 8.2-10.2 [facility] Comment on above: Performed By: #### H EPATIC, CBC, LIPASE, BMP #### [facility] [address] Chloride [Moles/Vol] 103 mmol/L Normal 95-114 [facility] Comment on above: Performed By: #### H EPATIC, CBC, LIPASE, BMP #### [facility] [address] CO2 [Moles/Vol] 26.9 mmol/L Normal 22.0-30.0 [facility] Comment on above: Performed By: #### H EPATIC, CBC, LIPASE, BMP #### [address] Creatinine [Mass/Vol] 1.66 mg/dL High 0.64-1.27 [facility] Comment on above: Performed By: #### H EPATIC, CBC, LIPASE, BMP #### [facility] [address] [place] [address] Creatinine Clr Calc Pharmacy 68.90 [facility] Comment on above: Performed By: #### H EPATIC, CBC, LIPASE, BMP #### [facility] [address] [place] [address] Estimated GFR ( Beata 51 [facility] Comment on above: Result Comment: GFR estimated reference range: According to KDOQI guidelines, <60 ml/min/1.73m2 is sufficient to diagnose a patient with chronic kidney disease. Performed By: #### H EPATIC, CBC, LIPASE, BMP #### [facility] [address] [place] [id number] [place] Estimated GFR (Non- Am 42 [facility] Comment on above: Performed By: #### H EPATIC, CBC, LIPASE, BMP #### [facility] [address] Glucose [Mass/Vol] 442 mg/dL High 70-100 [facility] Comment on above: Result Comment: [facility] Glucose Reference Range is dependent on time and content of last meal. Glucose of more than 200 mg/dL in a nonstressed, ambulatory subject supports the diagnosis of Diabetes Mellitus. ADA recommended reference range Performed By: #### H EPATIC, CBC, LIPASE, BMP #### [facility] [address] Potassium [Moles/Vol] 4.1 mmol/L Normal 3.5-5.1 [facility] Comment on above: Performed By: #### H EPATIC, CBC, LIPASE, BMP #### [facility] [address] Sodium [Moles/Vol] 140 mmol/L Normal 136-146 [facility] Comment on above: Performed By: #### H EPATIC, CBC, LIPASE, BMP #### [facility] [address] Urea nitrogen [Mass/Vol] 29 mg/dL High 9-23 [facility] Comment on above: Performed By: #### H EPATIC, CBC, LIPASE, BMP #### [facility] [address] [place] [address] COVID-19 Antigenon 1 COVID-19 Antigen Healthcare Worker?: [...] its performance Tamera Disclaimer characteristic determined by [employer] and Tamera Disclaimer validated at [facility]. This Tamera Disclaimer test has not [...] Emergency Use Authorization for Coronavirus Tamera Disclaimer is during the Public Health Emergency) Tamera Disclaimer [...] is terminated or revoked sooner. PERFORMED BY: [address] [address] PATHOLOGIST ONLINE ADVERTISING MANAGER TO [place] M.D. Normal [facility] Comment on above: Performed By: #### C OVID-19 TAMERA, SOFIANEG, COVID 19 [facility] #### [address] [address] [facility] COVID-19 FRon 07-21-2021 SARS-CoV-2 (COVID-19) RNA EMMY+probe Ql (Unsp spec) Negative Normal Negative [facility] Comment on above: Order Comment: Healt hcare Worker?: Y Result Comment: Testing for SARS-CoV-2 by RT-PCR This test was developed and its performance characteristics determined by [employer] ([employer]) and validated at the [facility]. This test has not been FDA [...] is terminated or revoked sooner. PERFORMED BY: [address] [address] PATHOLOGIST ONLINE ADVERTISING MANAGER TO [place] M.D. Performed By: #### C OVID-19 TAMERA, SOFIANEG, COVID 19 [facility] #### [address] [place] [address] [facility] CT abdomen pelvis wo conon 1 CT abdomen pelvis wo con [facility] [place] [address] [place] [address] CT Scan Report Signed Patient: Andry Pierre MR#: [id number] 28 : 1960 Acct:[id number] Age/Sex: 60 / M ADM Date: 07/21/21 Loc: Room: [address] [place] [address] Type: ADM INOo Attending Dr: Feliciano Hernandez [...] Ricks Jr., M.D.07/21/2021 9:15 AM Dictation Location: [place] [address] Transcribed By: [facility] 07/21/21 0915 Dictated By: Duke Ricks Jr, MD 07/21/2104 Signed By: 07/21/2115 Normal [facility] Coagulation Profileon 2020 aPTT Coag (Bld) [Time] 37.9 s High 25.1-36.5 [facility] Comment on above: Result Comment: PERF ORMED BY: [place] [address] PATHOLOGIST ONLINE ADVERTISING MANAGER TO [place] M.D. Performed By: #### P P #### [address] INR Coag (PPP) [Relative time] 2.0 {INR} Normal [facility] Comment on above: Result Comment: INR [...] 4.5 Performed By: #### P P #### [address] PT Coag (PPP) [Time] 22.5 s High 9.0-12.9 [facility] Comment on above: Performed By: #### P P #### [address] Complete Blood Count Auto Di ffon 07-21-2021 Basophils (Bld) [#/Vol] 0.1 10*3/uL Normal 0.0-0.2 [facility] Comment on above: Result Comment: PERF ORMED BY: [place] [address] PATHOLOGIST ONLINE ADVERTISING MANAGER TO [place] M.D. Performed By: #### H EPATIC, CBC, LIPASE, BMP #### [address] Basophils/100 WBC (Bld) 0.6 % Normal . [facility] Comment on above: Performed By: #### H EPATIC, CBC, LIPASE, BMP #### [address] Eosinophils (Bld) [#/Vol] 0.4 10*3/uL Normal 0.0-0.45 [facility] Comment on above: Performed By: #### H EPATIC, CBC, LIPASE, BMP #### [address] Eosinophils/100 WBC (Bld) 4.3 % Normal . [facility] Comment on above: Performed By: #### H EPATIC, CBC, LIPASE, BMP #### [address] Erythrocyte distribution width (RBC) [Ratio] 13.7 % Normal 12.0-14.8 [facility] Comment on above: Performed By: #### H EPATIC, CBC, LIPASE, BMP #### [address] Hematocrit (Bld) [Volume fraction] 45.9 % Normal 38.8-50.0 [facility] Comment on above: Performed By: #### H EPATIC, CBC, LIPASE, BMP #### [address] Hemoglobin (Bld) [Mass/Vol] 15.4 g/dL Normal 13.0-17.0 [facility] Comment on above: Performed By: #### H EPATIC, CBC, LIPASE, BMP #### [address] Lymphocytes (Bld) [#/Vol] 2.9 10*3/uL Normal 1.00-4.8 [facility] Comment on above: Performed By: #### H EPATIC, CBC, LIPASE, BMP #### [address] Lymphocytes/100 WBC (Bld) 28.4 % Normal . [facility] Comment on above: Performed By: #### H EPATIC, CBC, LIPASE, BMP #### [address] MCH (RBC) [Entitic mass] 32.0 pg Normal 27.5-35.2 [facility] Comment on above: Performed By: #### H EPATIC, CBC, LIPASE, BMP #### [address] MCV (RBC) [Entitic vol] 95.2 fL Normal 83.5-101 [facility] Comment on above: Performed By: #### H EPATIC, CBC, LIPASE, BMP #### [address] Mean Corpuscular HGB Conc 33.6 g/dL Normal 32.5-35.6 [facility] Comment on above: Performed By: #### H EPATIC, CBC, LIPASE, BMP #### [address] Monocytes (Bld) [#/Vol] 0.7 10*3/uL Normal 0.0-0.8 [facility] Comment on above: Performed By: #### H EPATIC, CBC, LIPASE, BMP #### [address] Monocytes/100 WBC (Bld) 6.7 % Normal . [facility] Comment on above: Performed By: #### H EPATIC, CBC, LIPASE, BMP #### [address] Neutrophils (Bld) [#/Vol] 6.0 10*3/uL Normal 1.8-7.7 [facility] Comment on above: Performed By: #### H EPATIC, CBC, LIPASE, BMP #### [address] Neutrophils/100 WBC (Bld) 60.0 % Normal . [facility] Comment on above: Performed By: #### H EPATIC, CBC, LIPASE, BMP #### [address] Nucleated RBC/100 WBC (Bld) [Ratio] 0.1 % Normal 0-0.5 [facility] Comment on above: Performed By: #### H EPATIC, CBC, LIPASE, BMP #### [address] Platelet mean volume (Bld) [Entitic vol] 8.7 fL Normal 6.6-10.1 [facility] Comment on above: Performed By: #### H EPATIC, CBC, LIPASE, BMP #### [address] Platelets (Bld) [#/Vol] 215 10*3/uL Normal 150-450 [facility] Comment on above: Performed By: #### H EPATIC, CBC, LIPASE, BMP #### [address] RBC (Bld) [#/Vol] 4.83 10*6/uL Normal 3.90-5.60 [facility] Comment on above: Performed By: #### H EPATIC, CBC, LIPASE, BMP #### [address] WBC (Bld) [#/Vol] 10.0 10*3/uL Normal 4.5-11.0 [facility] Comment on above: Performed By: #### H EPATIC, CBC, LIPASE, BMP #### [address] Glucose Poct Glucometerson 1 Commemt1 Glu2: Cleaned Meter Normal [facility] Comment on above: Result Comment: PERF ORMED BY: [place] [address] PATHOLOGIST ONLINE ADVERTISING MANAGER TO [place] M.D. Performed By: #### H EPATIC, CBC, LIPASE, BMP #### [address] Glucose [Mass/Vol] 267 mg/dL Normal [facility] Comment on above: Result Comment: [facility] Glucose Reference Range is dependent on time and content of last meal. Glucose of more than 200 mg/dL in a nonstressed, ambulatory subject supports the diagnosis of Diabetes Mellitus. Performed By: #### H EPATIC, CBC, LIPASE, BMP #### [facility] [address] [place] [address] Commemt1 Glu2: Cleaned Meter [facility] Comment on above: Result Comment: PERF ORMED BY: [place] [address] PATHOLOGIST ONLINE ADVERTISING MANAGER TO [place] M.D. Performed By: #### H EPATIC, CBC, LIPASE, BMP #### [address] Glucose [Mass/Vol] 252 mg/dL Normal [facility] Comment on above: Result Comment: [place] om Glucose Reference Range is dependent on time and content of last meal. Glucose of more than 200 mg/dL in a nonstressed, ambulatory subject supports the diagnosis of Diabetes Mellitus. Performed By: #### H EPATIC, CBC, LIPASE, BMP #### [address] Commemt1 Glu2: Cleaned Meter [facility] Comment on above: Result Comment: PERF ORMED BY: [place] [address] PATHOLOGIST ONLINE ADVERTISING MANAGER TO [place] M.D. Performed By: #### H EPATIC, CBC, LIPASE, BMP #### [address] Glucose [Mass/Vol] 100 mg/dL Normal [facility] Comment on above: Result Comment: [place] om Glucose Reference Range is dependent on time and content of last meal. Glucose of more than 200 mg/dL in a nonstressed, ambulatory subject supports the diagnosis of Diabetes Mellitus. Performed By: #### H EPATIC, CBC, LIPASE, BMP #### [facility] [address] [place] [address] [place] Glucose [Mass/Vol] 140 mg/dL Normal [facility] Comment on above: Result Comment: [place] om Glucose Reference Range is dependent on time and content of last meal. Glucose of more than 200 mg/dL in a nonstressed, ambulatory subject supports the diagnosis of Diabetes Mellitus. PERFORMED BY: [place] [address] PATHOLOGIST ONLINE ADVERTISING MANAGER TO [place] M.D. Performed By: #### H EPATIC, CBC, LIPASE, BMP #### [facility] [address] [place] [address] Hepatic Panelon 07-21-2021 Albumin [Mass/Vol] 3.5 g/dL Normal 3.2-5.5 [facility] Comment on above: Performed By: #### H EPATIC, CBC, LIPASE, BMP #### [address] Albumin/Globulin [Mass ratio] 1.1 {ratio} Normal [facility] Comment on above: Performed By: #### H EPATIC, CBC, LIPASE, BMP #### [address] ALP [Catalytic activity/Vol] 115 U/L High 32-92 [facility] Comment on above: Performed By: #### H EPATIC, CBC, LIPASE, BMP #### [address] ALT [Catalytic activity/Vol] 30 U/L Normal 10-60 [facility] Comment on above: Performed By: #### H EPATIC, CBC, LIPASE, BMP #### [address] AST [Catalytic activity/Vol] 19 U/L Normal 10-42 [facility] Comment on above: Performed By: #### H EPATIC, CBC, LIPASE, BMP #### [facility] [address] [place] [address] Bilirubin [Mass/Vol] 0.7 mg/dL Normal 0.3-1.2 [facility] Comment on above: Performed By: #### H EPATIC, CBC, LIPASE, BMP #### [address] Bilirubin,Indirect Not performed Normal [facility] Comment on above: Performed By: #### H EPATIC, CBC, LIPASE, BMP #### [address] [address] [place] Bilirubin.indirect [Mass/Vol] mg/dL Normal 0.0-0.4 [facility] Comment on above: Performed By: #### H EPATIC, CBC, LIPASE, BMP #### [address] Globulin (S) [Mass/Vol] 3.2 g/dL Normal [facility] Comment on above: Performed By: #### H EPATIC, CBC, LIPASE, BMP #### [address] Protein [Mass/Vol] 6.7 g/dL Normal 6.1-7.9 [facility] Comment on above: Performed By: #### H EPATIC, CBC, LIPASE, BMP #### [address] Lactic Acidon 07-21-2021 Lactate [Moles/Vol] 1.2 mmol/L Normal 0.5-2.2 [facility] Comment on above: Result Comment: PERF ORMED BY: [place] [address] PATHOLOGIST ONLINE ADVERTISING MANAGER TO [place] M.D. Performed By: #### L ACTIC #### [address] Lipaseon 07-21-2021 Lipase [Catalytic activity/Vol] 43.0 U/L Normal 22-51 [facility] Comment on above: Result Comment: PERF ORMED BY: [place] [address] PATHOLOGIST ONLINE ADVERTISING MANAGER TO [place] M.D. Performed By: #### H EPATIC, CBC, LIPASE, BMP #### [address] Tamera Ag Negativeon 07-21-20 Tamera Ag Negative Negative Normal Negative [facility] Comment on above: Result Comment: This is a duplicate Tamera SARS Antigen (GIOVANNA) result to be used for statistical tracking purpose only. PERFORMED BY: [address] [place] [address] PATHOLOGIST ONLINE ADVERTISING MANAGER TO [place] M.D. Performed By: #### C OVID-19 TAMERA, SOFIANEG, COVID 19 [facility] #### [facility] [address] [place] [address] Urinalysison 07-21-2021 Appearance (U) Clear Normal Clear [facility] Comment on above: Order Comment: Name Collection Type:: Clean-Voided Midstream Performed By: #### U A #### [place] [address] [place] Bilirubin,Urine Negative Normal Negative [facility] Comment on above: Order Comment: Name Collection Type:: Clean-Voided Midstream Performed By: #### U A #### [address] Color (U) Yellow Normal Yellow [facility] Comment on above: Order Comment: Name Collection Type:: Clean-Voided Midstream Performed By: #### U A #### [address] Glucose Ql (U) >=1000 High Normal [facility] Comment on above: Order Comment: Name Collection Type:: Clean-Voided Midstream Performed By: #### U A #### [address] Ketones Ql (U) Negative Normal Negative [facility] Comment on above: Order Comment: Name Collection Type:: Clean-Voided Midstream Performed By: #### U A #### [place] [address] [place] Leukocyte esterase Test strip Ql (U) Negative Normal Negative [facility] Comment on above: Order Comment: Name Collection Type:: Clean-Voided Midstream Performed By: #### U A #### [place] [address] [place] Nitrite,Urine Negative Normal Negative [facility] Comment on above: Order Comment: Name Collection Type:: Clean-Voided Midstream Performed By: #### U A #### [place] [id number] [place] Occult Blood,Urine Negative Normal Negative [facility] Comment on above: Order Comment: Name Collection Type:: Clean-Voided Midstream Result Comment: PERF ORMED BY: [place] [address] PATHOLOGIST ONLINE ADVERTISING MANAGER TO [place] M.D. Performed By: #### U A #### [address] pH (U) 6.5 [pH] Normal 5.0-9.0 [facility] Comment on above: Order Comment: Name Collection Type:: Clean-Voided Midstream Performed By: #### U A #### [address] Protein,Urine Negative Normal Negative [facility] Comment on above: Order Comment: Name Collection Type:: Clean-Voided Midstream Performed By: #### U A #### [address] Specificy [place],Urine 1.026 Normal 1.001-1.030 [facility] Comment on above: Order Comment: Name Collection Type:: Clean-Voided Midstream Performed By: #### U A #### [address] Urobilinogen,Urine Normal Normal Normal [facility] Comment on above: Order Comment: Name Collection Type:: Clean-Voided Midstream Performed By: #### U A #### [address] General Surgery Office/Clini c Noteon 05-31-2021 [...] hematuria Head injury Heart disease 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 [facility] Comment on above: Result Comment: Elec tronically Signed By: NOE GEORGE, Andry Das\.br\Date and Time Signed: 05/31/21 11:26 EDT Ambulatory Clinical Summaryo n 05-29-2021 Ambulatory Clinical Summary {[id number]}CD: [id number] [facility] Outside Colonoscopyon 2020 Outside Colonoscopy [id number]#1.00CD:127 [facility] Pathology Noteon 05-25-2021 Pathology Note [id number]#1.00CD:127 [facility] May 23, 2021 Say Anny, [facility] [place] [address] Re: ANDRY PIERRE Date of : 1960 Thank you for your referral of Andry Pierre who was seen on consultation on May 18, 2021, for Right upper quadrant pain and rectal bleeding, nausea, vomiting, and constipation. I have enclosed my consultation notes for your review. I will be happy to follow Andry should his symptoms persist. Sincerely, Andry Adames MD General Surgery [facility] Consent for Procedure/Surger yon 05-21-2021 Consent for Procedure/Surgery [id number]#1.00CD:127 [facility] Immunization Recordson 05-21 Immunization Records [id number]#1.00CD:127 [facility] Ambulatory Clinical Summaryo n 05-18-2021 Ambulatory Clinical Summary {[id number]}CD: [id number] Normal [facility] General Surgery Office/Clini c Noteon 05-18-2021 General Surgery Office/Clinic Note HPI Staff Est patient , RUQ pain x 8 wks , u/s done 05/03/21 @ [facility]. 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 Normal [facility] Comment on above: Result Comment: Elec tronically Signed By: NOE GEORGE, Andry Das\.br\Date and Time Signed: 05/18/21 15:[address] - CT Reporton 05-17-2021 RAD - CT Report [id number]#1.00CD:127 Normal [facility] RAD - MISCon 05-17-2021 RAD - MISC [id number]#1.00CD:127 [facility] RAD - MISC [id number]#1.00CD:127 [facility] RAD - Ultrasound Reporton RAD - Ultrasound Report [id number]#1.00CD:127 [facility] RAD - Ultrasound Reporton RAD - Ultrasound Report [id number]#1.00CD:127 Normal [facility] Physician Referralon 021 Physician Referral [id number]#1.00CD:127 [facility] Provider [facility] Provider Letter [facility] March 23, 2021 Say Mccormick, [address] [facility] [place] [address] [place] [address] Re: ANDRY PIERRE Date of : 1960 Thank you for your referral of Andry Pierre who was seen on consultation of excision of lump on the neck on March 14, 2021. I have enclosed my consultation notes for your review. I will be happy to follow Andry should his symptoms persist. Sincerely, Andry Adames MD General Surgery [facility] Ambulatory Clinical Summaryo n 03-14-2021 Ambulatory Clinical Summary {[id number]}CD: [id number] [facility] Patient Educationon 03-14-20 21 Patient Education [...] your health care provider or diet and animal nutritionist (dietitian). This may include: ? Eating [...] calories than (more content not included)... Normal [facility] Physician Referralon 021 Physician Referral [id number]#1.00CD:127 [facility] Patient Correspondenceon Patient Correspondence [id number]#1.00CD:127 [facility] Reminderson 01-10-2021 Reminders - From: Rosa Cuellar To: TIFFANY - Anand Barfield; Cc: Rosa Cuellar; Sent: [...] letters sent?LG From: Rosa Cuellar (EU - Recallpavel Barfield) To: Larry BARFIELD MD; Cc: Rosa Cuellar; [...] sign. LR Letter mailed regular/certified letter today. [facility] Provider Letteron 01-09-2021 Provider Letter (Inserted Image. Pina ble to display) January 09, 2021 ANDRY PIERRE [address] [place] [address] ANDRY PIERRE 1960 SENT VIA CERTIFIED AND REGULAR MAIL Dear Mr. Pierre, This letter is to inform you the providers of [facility], [facility] will no longer be responsible for your routine medical care due to your noncompliance. Emergency care only will be provided for the thirty (30) days following this letter. During this time period we suggest that you find another physician for your medical needs. A listing of area physicians can be found on [facility]'s website at [email or web address] or you may contact your health plan. We will be glad to forward your records to your new physician as long as we receive a signed release of records form. Sincerely, Larry Barfield M.D., F.A.C.S. [facility] [address] [facility] [place] [address] Normal [facility] Patient Correspondenceon Patient Correspondence [id number]#1.00CD:127 Normal [facility] Provider Letter Office-[facility] 11-24-2020 Provider Letter [facility] November 24, 2020 ANDRY PIERRE [address] [place] [address] ANDRY PIERRE 1960 SENT VIA CERTIFIED AND [...] Larry Barfield M.D., F.A.C.S. [facility] [address] [place] [address] [facility] Reminderson 08-02-2020 Reminders - From: Radha King MA To: EU - Clinical; Sent: 07/19/2020 14:09:34 EDT Show up: 08/02/2020 14:09:00 EDT Subject: fish/cytol Reminder/Recall fish/cytol done 07/19/2020 done, sent msg to prw to review results [facility] Outside Cardiovascularon Outside Cardiovascular [id number]#1.00CD:127 Normal [facility] Outside Radiologyon 08-01-20 20 Outside Radiology [id number]#1.00CD:127 Normal [facility] Outside Radiology [id number]#1.00CD:127 Normal [facility] Progress Note-Physicianon Progress Note-Physician [id number]#1.00CD:127 Normal [facility] Urology Office/Clinic Noteon 07-25-2020 Urology Office/Clinic [...] ago. Pt. 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 Pt. states no biopsy was done, just a blood test. PSA was 1.39 done 07/07/20. Cath was removed at [facility] this morning. Dysuria: denies pain or burning Incomplete bladder emptying: yes pt had cath for 2 weeks placed by [facility], cath was removed this morning at [facility] Hematuria: pt states he had visible [...] since last encounter. Reviewed CT scan and [facility] ER notes Review of Systems PHQ [...] Retention of urine, unspecified) Patient reported to [facility] ER for leaking around catheter on [...] contributing t (more content not included)... Normal [facility] Comment on above: Result Comment: Elec tronically Signed By: Yon GEORGE, Lefty Jamil\.br\Date and Time Signed: 07/25/20 12:11 EDT Urology Office/Clinic Note Chief Complaint [facility] 07/10/2020 HPI Staff [facility] on 07/10/2020 due to leaking around catheter. US of kidneys done 11/17/2019. Pt. states after having a Ct scan Pt. was not able to urinate and had catheter placed. Pt. does not have a history of urine retention. 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 Pt. 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 Pt. states [...] abdominal pain. History of Present Illness Reviewed [employer]AGE [employer] paper works. 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 ago by a in [place]. Pt. states that there was never a [...] urine fo (more content not included)... Normal [facility] Comment on above: Result Comment: Elec tronically Signed By: Yon GEORGE, Lefty Jamil\.br\Date and Time Signed: 07/25/20 11:44 EDT Lab Reportson 07-24-2020 Lab Reports [id number]#1.00CD:127 Normal [facility] UroVysion Fish and Urine Cyt o ([facility])on 07-24-2020 UVFISH & UC Diagnosis Info Invalid Interpretation Code [facility] Comment on above: Result Comment: A:Ur [...] on: 07/24/2020 10:42:51 Performed By: #### 1 [id number] ####[facility] [address] [place] [address] RAD - [address] Reporton 07-21-[address] - [address] Report [id number]#1.00CD:127 Normal [facility] ED Note-Physicianon 07-20-20 ED Note-Physician [id number]#1.00CD:127 [facility] Formson 07-20-2020 Forms [id number]#1.00CD:127 [facility] Ambulatory Clinical Summaryo n 07-19-2020 Ambulatory Clinical Summary {[id number]}CD: [id number] [facility] Ambulatory Clinical Summary {[id number]}CD: [id number] [facility] Auth for Release of Medical Recordson 07-19-2020 Auth for Release of Medical Records [id number]#1.00CD:127 [facility] Patient Educationon 07-19-20 Patient Education Family [...] Document Reviewed: 12/14/2012 ExitCare? Patient Information ?2013 [employer]. [facility] Patient Education Family Medicine Acute [...] your urine. Then you and your personal attendant can decide at your earliest convenience how [...] to a urinary tract infection. Only take ybwl-wyv-skmvdei or prescription medicines for pain, discomfort, or fever as directed by your caregiver. SEEK IMMEDIATE MEDICAL CARE IF: You develop chills, fever, or show signs of generalized illness that occurs prior to seeing your caregiver. Document Released: 12/29/2001 Document Revised: 12/14/2012 Document Reviewed: 09/13/2009 ExitCare? Patient Information ?2013 [employer]. [facility] Provider Letter FTon 07-19 Provider Letter [facility] Say Mccormick [address] [place] [address] Re: ANDRY PIERRE Date of : 1960 [...] based on PSA alone per pt in [facility]. Equally confusing is the fact that this [...] a remote history of prostate cancer in [facility] by a outside urologist without a biopsy. [...] to determine his PSA's were done in [facility]. I began suspecting the patient was not [...] impression of (more content not included)... Normal [facility] RAD - CT Reporton 07-19-[address] - [address] Report [id number]#1.00CD:127 Normal [facility] UroVysion Fish and Urine Cyt o ([facility])on 07-19-2020 [facility] Method of Extraction Voided Normal [facility] Comment on above: Performed By: #### 1 [id number] ####[facility] [address] [place] [address] [facility] Number of Jars 1 Invalid Interpretation Code [facility] Comment on above: Performed By: #### 1 [id number] ####[facility] [address] [place] [address] [facility] Specimen Urine Normal [facility] Comment on above: Performed By: #### 1 [id number] ####[facility] [address] [place] [address] [facility] Type of Service Technical Only Normal [facility] Comment on above: Performed By: #### 1 [id number] ####[facility] [address] [place] [address] Vital Signs Date Time Vital Sign Value Performing Clinician Facility 12-08-2023 19:17-0500 Respiratory rate 18 /min [facility] 12-08-2023 16:50-0500 Body temperature 97.9 [degF] Abdirahman Hunt MD [facility] 12-08-2023 16:50-0500 Diastolic blood pressure 88 mm[Hg] bAdirahman Hunt MD [facility] 12-08-2023 16:50-0500 Heart rate 90 /min [facility]dirahman Hunt [facility] 12-08-2023 16:50-0500 SaO2% (BldA) [Mass fraction] 98 % Abdirahman Hunt MD [facility] 12-08-2023 16:50-0500 Systolic blood pressure 149 mm[Hg] Abdirahman Hunt [facility] 12-05-2023 15:04-0500 Body height 180.3 cm Abdirahman Hunt MD [facility] 11-30-2023 00:18-0500 Body temperature 37.0 Abdirahman Hunt MD [facility] 11-29-2023 20:00-0500 Body mass index (BMI) [Ratio] 40.96 kg/m2 Abdirahman Hunt MD [facility] 11-29-2023 20:00-0500 Body weight 133.2 kg Abdirahman Hunt [facility] 11-06-2023 09:57-0500 Body height 175.3 cm Obed Florian MD Work Phone: [facility] 11-06-2023 09:57-0500 Body weight 123.38 kg Obed Florian MD Work Phone: [facility] 11-06-2023 09:57-0500 Diastolic blood pressure 89 mm[Hg] Obed Florian MD Work Phone: [facility] 11-06-2023 09:57-0500 Heart rate 81 /min Obed Florian MD Work Phone: [facility] 11-06-2023 09:57-0500 SaO2% (BldA) [Mass fraction] 95 % Obed Florian MD Work Phone: [facility] 11-06-2023 09:57-0500 Systolic blood pressure 127 mm[Hg] Obed Florian MD Work Phone: [facility] 01-21-2022 07:23-0400 Body height 182.9 cm Pacc 3 Work Phone: [facility] 01-21-2022 07:23-0400 Body temperature 97.2 [degF] Pacc 3 Work Phone: [facility] 01-21-2022 07:23-0400 Body weight 140.21 kg Pacc 3 Work Phone: [facility] 01-21-2022 07:23-0400 Diastolic blood pressure 84 mm[Hg] Pacc 3 Work Phone: [facility] 01-21-2022 07:23-0400 Heart rate 57 /min Pacc 3 Work Phone: [facility] 01-21-2022 07:23-0400 SaO2% (BldA) [Mass fraction] 99 % Pacc 3 Work Phone: [facility] 01-21-2022 07:23-0400 Systolic blood pressure 134 mm[Hg] Pacc 3 Work Phone: [facility] 11-13-2021 12:20-0500 Body height 182.88 cm Omarlevi Jackitena Other [facility] Other 11-13-2021 12:20-0500 Body mass index (BMI) [Ratio] 42.04 kg/m2 Sanjay Dooley Other [facility] Other 11-13-2021 12:20-0500 Body temperature 96.2 [degF] Ctlevi Laroses Other [facility] Other 11-13-2021 12:20-0500 Body weight 140.62 kg Azlevi Baklayos Other [facility] Other 11-13-2021 12:20-0500 Diastolic blood pressure 60 mm[Hg] Aziz Bakhous Other [facility] Other 11-13-2021 12:20-0500 Respiratory rate 20 /min Azlevi Bakhous Other [facility] Other 11-13-2021 12:20-0500 SaO2% (BldA) [Mass fraction] 96 % Azlevi Baklayos Other [facility] Other 11-13-2021 12:20-0500 Systolic blood pressure 92 mm[Hg] Azlevi Baklayos Other [facility] Other Encounters Encounter Date Encounter Type Care Provider Facility Start: 07-13-2024 End: 07-13-2024 ambulatory [facility] Start: 06-21-2024 End: 06-21-2024 ambulatory ARJUN BARONE Not Available Start: 06-02-2024 ambulatory LAURA ROSADO [facility] Start: 05-28-2024 End: 05-28-2024 ambulatory ARJUN BARONE Not Available Start: 05-18-2024 ambulatory TIFFANIE LEIGH [facility] Start: 03-26-2024 End: 03-26-2024 ambulatory LEN PATRICIA [facility] Start: 03-24-2024 End: 03-24-2024 ambulatory YANCY CERVANTES Not Available Start: 03-23-2024 ambulatory [facility] Start: 03-22-2024 End: 03-22-2024 Emergency department patient visit SAY MCCORMICK [facility] Start: 03-09-2024 End: 03-09-2024 ambulatory YANCY Livan BILLY Not Available Start: 03-04-2024 ambulatory TIFFANIE LU [facility] Start: 02-25-2024 End: 02-25-2024 ambulatory ARJUN BARONE Not Available Start: 01-29-2024 End: 01-29-2024 ambulatory [facility] Start: 01-27-2024 ambulatory [facility] Start: 01-22-2024 End: 01-22-2024 ambulatory YANCY Livan BILLY Not Available Start: 01-21-2024 End: 01-21-2024 ambulatory YANCY CERVANTES Not Available Start: 01-13-2024 ambulatory [facility] Start: 01-06-2024 End: 01-06-2024 ambulatory YANCY Livan BILLY Not Available Start: 11-29-2023 End: 12-08-2023 Evaluation and management of inpatient CHARLEE Rush YAZMIN [facility] Start: 11-29-2023 End: 12-08-2023 Evaluation and management of inpatient Abdirahman Hunt MD [facility] Start: 11-28-2023 End: 11-29-2023 Emergency department patient visit SAY MCCORMICK [facility] Start: 11-28-2023 End: 12-01-2023 ambulatory [facility] Start: 11-25-2023 End: 11-26-2023 [facility] Start: 11-19-2023 End: 11-19-2023 Subsequent hospital visit by physician [facility]In[facility]iology Comment on above: Canceled (Patient co ndition) Start: 11-06-2023 End: 11-07-2023 ambulatory SAY MCCORMICK Facility:[facility] Start: 11-06-2023 End: 11-06-2023 ambulatory SAY MCCORMICK Facility:[facility] Start: 11-06-2023 End: 11-06-2023 Patient encounter procedure Obde Florian MD Work Phone: Neurology Comment on above: Diabetic polyneuropa thy associated with type 2 diabetes mellitus (HCC) [E11.42] (Primary Dx); Weakness; Obesity, Class III, BMI 40-49.9 (morbid obesity) (HCC) Start: 10-21-2023 End: 10-22-2023 ambulatory [facility] Start: 10-10-2023 ambulatory [facility] Start: 10-08-2023 End: 10-14-2023 Emergency department patient visit [facility] Start: 09-19-2023 End: 09-20-2023 ambulatory [facility] Facility:[facility] Start: 09-12-2023 Telephone encounter Shane bowling PA-C Work Phone: [facility] Comment on above: DBS problem Start: 08-19-2023 End: 08-19-2023 ambulatory [facility] Start: 08-11-2023 End: 08-12-2023 ambulatory Ramon Mendiola MD Facility: [facility] Start: 07-17-2023 End: 07-17-2023 ambulatory DEEPA [facility] Start: 07-07-2023 Telephone encounter Wesley Rose MD Work Phone: [facility] Start: 02-20-2023 End: 02-21-2023 ambulatory SURI BANDA Facility:[facility] Start: 02-03-2023 End: 03-05-2023 ambulatory SHAIKH Brenda DEWEY Facility:[facility] Start: 01-07-2023 End: 01-08-[address] SAY MCCORMICK . Facility:[facility] Start: 01-06-2023 End: 01-31-2023 ambulatory SHAIKH Brenda DEWEY Facility:[facility] Start: 12-04-2022 End: 01-03-2023 ambulatory SHAIKH Brenda DEWEY Facility:[facility] Start: 11-06-2022 End: 12-04-2022 ambulatory SHAIKH Brenda MACO Facility:[facility] Start: 10-07-2022 End: 11-06-2022 ambulatory CARMICHAEL H MACO Facility:[facility] Start: 09-05-2022 End: 10-06-2022 ambulatory Brenda MACO Facility:[facility] Start: 08-06-2022 End: 09-04-[address] SAY MCCORMICK . Facility:[facility] Start: 07-10-2022 Encounter for preprocedural laboratory examination DIOGENES JENNIFER [facility] Start: 07-08-2022 End: 07-09-2022 ambulatory DIOGENES LUNDCKO Facility:[facility] Start: 07-08-2022 End: 07-09-2022 Encounter for preprocedural laboratory examination DIOGENES LUNDCKO Facility:[facility] Start: 07-08-2022 End: 08-05-[address] SAY MCCORMICK . Facility:[facility] Start: 06-24-2022 End: 06-24-2022 ambulatory PRANAV VASQUEZ Facility:[facility] Start: 06-13-2022 End: 07-06-[address] SAY MCCORMICK . Facility:[facility] Start: 05-29-2022 End: 05-30-2022 ambulatory SOFYA HIDALGO Facility:[facility] Start: 05-23-2022 End: 05-24-2022 ambulatory SOFYA HIDALGO Facility:[facility] Start: 05-06-2022 End: 06-05-2022 ambulatory Brenda MACO Facility:[facility] Start: 04-05-2022 End: 05-03-2022 ambulatory SHAIKH Brenda DEWEY Facility:[facility] Start: 01-23-2022 Telephone encounter Wesley Rose MD Work Phone: [facility] Comment on above: Results Start: 01-21-2022 End: 01-21-2022 ambulatory P[facility] 3 Work Phone: Pre Anesthesia Comment on above: Pre-op evaluation (P rimary Dx); Essential tremor; Type 2 diabetes mellitus with other specified complication, with long-term current use of insulin (HCC); Obesity, Class III, BMI >= 40; Essential [...] report Kerwin Brito RN Work Phone: [facility] Comment on above: Essential tremor (Pr imary Dx) Start: 01-21-2022 End: 01-21-2022 Patient encounter procedure Wesley Rose MD Work Phone: [facility] Comment on above: Essential tremor (Pr imary Dx) Start: 01-21-2022 End: 01-21-2022 Admission to establishment [facility] 3 Work Phone: [facility] Start: 01-21-2022 End: 01-21-2022 Preprocedural examination done Pacc Main 3 Work Phone: Pre Anesthesia Start: 01-04-2022 Telephone encounter Harris chowdhury MD Work Phone: [facility] Comment on above: DBS MARIA G message Start: 11-26-2021 End: 11-26-2021 ambulatory Sanjay Laroses Other [facility] Other Start: 11-26-2021 Telephone encounter Sanjay Laroses [facility] Start: 11-13-2021 End: 11-13-2021 ambulatory Aziz Bakhous Other [facility] Other Start: 11-13-2021 Office outpatient ne w 45 minutes Sanjay Laroses [facility] [place] Start: 11-13-2021 Telephone encounter Sanjay Laroses [facility] Start: 07-21-2021 End: 07-27-2021 ambulatory JESUS BAUDILIO Facility:[facility] Procedures Date Procedure Procedure Detail Performing [...] examinati on foot 2 views Rosalia Mobley FLIGHT COMMUNICATIONS SPECIALIST - HUMAN RESOURCES ADMIN Work Phone: Start: 12-05-2023 Glucose blood reagen [...] Phone: Start: 12-02-2023 EEG Slick Mags i FLIGHT COMMUNICATIONS SPECIALIST - HUMAN RESOURCES ADMIN Work Phone: Start: 12-02-2023 Glucose blood reagen [...] quantitative Halina Lugo MD Work Phone: Start: 6 End: 12-01-2023 Ecg routine ecg w/least 12 lds i&r only Jackie Rivas MD Work Phone: Start: 12-01-2023 Glucose blood reagen t strip Polly Ramos MD Work Phone: Start: 12-01-2023 Radiologic exam swal low function contrast study Polly Ramos MD Work Phone: Start: 12-01-2023 Ct cervical spine w/ o contrast material Carmelo Chirri DO Work Phone: Start: 12-01-2023 Glucose blood [...] thoracic spine w/ o contrast material Crystal Nick FLIGHT COMMUNICATIONS SPECIALIST - HUMAN RESOURCES ADMIN Work Phone: Start: 11-30-2023 End: 11-30-2023 Assay [...] above: Performed By: #### A 1C #### [facility] [address] [id number] [address] Miah Buck Start: 07-26-2021 Resection of Gallbladder, Percutaneous Endoscopic Approach DAVON OLIVIER Start: 07-24-2021 DILATION OF COMMON HEPATIC DUCT, ENDO ALI T NAJHONY Start: 02-24-2015 Colonoscopy Mth 1 Start: 12-01-2014 H/O: surgery S/P deep brain stimulator placement Mth 1 H/O: surgery S/P deep brain stimulator placement Abdirahman Hunt MD Plan of Treatment Date Care Activity Detail Author Start: 02-21-2028 Prostate Cancer Screening Discussion Prostate Cancer Screening Discussion [facility] Start: 02-21-2028 Prostate specific antigen measurement Prostate Cancer Screening Discussion [facility] Start: 2025 Pneumococcal 0-64 years Vaccine (3 - PPSV23 or PCV20) Pneumococcal 0-64 years Vaccine (3 - PPSV23 or PCV20) [facility] Start: 2025 Pneumococcal vaccination [facility] Start: 02-24-2025 Screening for malignant neoplasm of colon [facility] Start: 12-02-2024 GFR test (Diabetes, CKD 3-4, OR last GFR 15-59) GFR test (Diabetes, CKD 3-4, OR last GFR 15-59) [facility] Start: 11-25-2024 Hemoglobin A1c measurement A1C test (Diabetic or Prediabetic) [facility] Start: 01-15-2024 End: 01-15-2024 Patient encounter procedure 01/15/2024 11:40 AM EDT Office Visit [facility] Neurology Specialist Formerly [facility], [facility] [place] [id number] Yudith Martinez PA [address], [address] [place] [address] and ophthalmology referral memory [facility] Neurology Specialist Comment on above: 6W labs CT and ophth almology referral memory Start: 12-16-2023 End: 12-16-2023 Patient encounter procedure 12/16/2023 2:00 PM EDT Procedure visit [facility] [address] [place] [address] Evelyn Claire MD [address] [place] [address] emg: ble (has heart monitor implanted- not pacemaker) [facility] Comment on above: emg: ble (has heart monitor implanted- not pacemaker) Start: 11-28-2023 End: 11-28-2023 Patient encounter procedure 11/28/2023 1:00 PM EST Appointment [facility] Non-Invasive Cardiology [address] [place] [address] MEDIA - R/S W/ PT GWEN 11/19/23 BB [facility] Non-Invasive Cardiology Comment on above: MEDIA - R/S W/ PT WI FE GWEN 11/19/23 BB Start: 11-25-2023 End: 11-25-2023 Patient encounter procedure 11/25/2023 11:40 AM EST Office Visit [facility] Neurology Specialist [address] [place] [address] Yudith Martinez PA [address], [address] [place] [address] 4W swallow study double vision [facility] Neurology Specialist Comment on above: 4W swallow study cesario ble vision Start: 11-04-2023 End: 11-04-2024 Tilt table Tilt table CV Cardiac Diagnostics Routine Syncope and collapse Expected: 11/04/2023, Expires: 11/04/2024 [employer] Work Phone: Comment on above: Expected: 11/04/2023 , Expires: 11/04/2024 Start: 10-27-2023 Complete blood count Hemoglobin/Juan tocrit [facility] Start: 10-27-2023 Creatinine measurement Serum Creatin ine [facility] Start: 10-27-2023 Serum Creatinine Serum Creatinine Cl [facility] Start: 10-06-2023 Annual Wellness Visi t (Medicare Advantage) Annual Wellness Visit (Medicare Advantage) [facility] Start: 06-06-2023 Covid-19 Vaccine ( season) Covid-19 Vaccine ( season) [facility] Start: 06-06-2023 Influenza vaccination Influenza Vacc ine (#1) [facility] Start: 05-06-2023 Influenza vaccination Flu vaccine (# 1) [facility] Start: 01-21-2023 HEMOGLOBIN/HEMATOCRIT HEMOGLOBIN/HEM ATOCRIT [facility] Start: 01-21-2023 SERUM CREATININE SERUM CREATININE [facility] Start: 11-28-2022 SERUM CREATININE SERUM CREATININE Cl [facility] Start: 06-06-2022 Influenza vaccination INFLUENZ A (Season Ended) [facility] Start: 04-22-2022 Hemoglobin A1c measurement HbA1C [facility] Start: 04-22-2022 Hemoglobin A1c/Hemoglobin.total in Blood HBA1C [facility] Start: 01-20-2022 End: 03-22-2022 Hemoglobin A1c/Hemoglobin.total in Blood HGB A1C Lab Routine Type 2 diabetes mellitus with other specified complication, with long-term current use of insulin (HCC) Pre-op evaluation Expected: 01/20/2022, Expires: 03/22/2022 [facility] Work Phone: Comment on above: Expected: 01/20/2022 , Expires: 03/22/2022 Start: 02-03-2021 COVID-19 VACCINE (2 - Booster for Mary Ellen series) COVID-19 VACCINE (2 - Booster for Mary Ellen series) [facility] Start: 2020 Hepatitis B Vaccine (1 of 3 - Risk 3-dose series) Hepatitis B Vaccine (1 of 3 - Risk 3-dose series) [facility] Start: 2020 Respiratory Syncytia l Virus (RSV) or age 60 yrs+ (1 - 1-dose 60+ series) Respiratory Syncytial Virus (RSV) or age 60 yrs+ (1 - 1-dose 60+ series) [facility] Start: 2020 RSV Vaccine (1 - 1-dose 60+ series) RSV Vaccine (1 - 1-dose 60+ series) [facility] Start: 08-19-2020 Diabetic foot examination Diabetic foot exam [facility] Start: 12-12-2018 Hemoglobin A1c/Hemoglobin.total in Blood HBA1C [facility] Start: 08-29-2016 Urine screening for protein Diabetic Alb to Cr ratio (uACR) test [facility] Start: 08-09-2016 GFR test (Diabetes, CKD 3-4, OR last GFR 15-59) GFR test (Diabetes, CKD 3-4, OR last GFR 15-59) [facility] Start: 07-18-2016 Lipid panel Lipids [facility] Start: 05-05-2016 Hemoglobin A1c measurement A1C test (Diabetic or Prediabetic) [facility] Start: 2015 PROSTATE CANCER SCREENING DISCUSSION PROSTATE CANCER SCREENING DISCUSSION [facility] Start: 07-27-2015 Glaucoma screening Diabetic retinal exam [facility] Start: 2010 Shingles vaccine (1 of 2) Shingles vaccine (1 of 2) [facility] Start: 2010 SHINGRIX VACCINE (1 of 2) SHINGRIX VACCINE (1 of 2) [facility] Start: 2005 COLOGUARD (FIT-DNA) COLOGUARD (FIT-D NA) [facility] Start: 2005 Colonoscopy COLONOSCOPY [facility] Start: 2005 COLORECTAL CANCER SCREENING COLORECTAL CANCER SCREENING [facility] Start: [address] COLONOGRAPHY [facility] Start: 2005 FECAL OCCULT BLOOD FECAL OCCULT BLOO D [facility] Start: 2005 Screening for malignant neoplasm of colon [facility] Start: 2005 SIGMOIDOSCOPY SIGMOIDOSCOPY [facility] Start: 10-07-2000 Urine microalbumin profile DTaP,Tdap,Td Vaccine (1 - Tdap) [facility] Start: 1990 Zoledronic acid therapy Alpha-1 Antitrypsin Deficiency Screening [facility] Start: 1979 DTaP/Tdap/Td vaccine (1 - Tdap) DTaP/Tdap/Td vaccine (1 - Tdap) [facility] Start: 1979 Urine microalbumin profile [facility] Start: 1978 ANNUAL PCP TEAM CHRONIC DISEASE VISIT ANNUAL PCP TEAM CHRONIC DISEASE VISIT [facility] Start: 1978 BP CONTROLLED (<130/80) BP CONTROLLED (<130/80) [facility] Start: 1978 Hepatitis B surface antibody level LDL CHOLESTEROL [facility] Start: 1978 HEPATITIS C SCREENING HEPATITIS C [facility] Start: 1978 Hepatitis C screening Hepatitis C [facility] Start: 1978 HIV SCREENING HIV SCREENING [facility] Start: 1978 HIV screening HIV Screening [facility] Start: 1975 HIV screening HIV screen [facility] [employer] Start: 1972 Depression Monitoring Depression Mon itoring [facility] [employer] Start: 1970 3 comp foot exam completed DIABETIC FOOT EXAM [facility] Start: 1970 Diabetic foot examination Diabetic Foot Exam [facility] Start: 1970 Glaucoma screening Dilated Retinal E xam [facility] Start: 1970 Hepatitis B screening URINE ALBUMIN:CREATININE RATIO [facility] Start: 1970 Hepatitis C antibody , confirmatory test DILATED RETINAL EXAM [facility] Adult NIV/Positive Airway Pressure Adult NIV/Positive Airway Pressure Respiratory Care Routine Every 4hr until discontinued starting 11/30/2023 [employer] Comment on above: Every 4hr until disc ontinued starting 11/30/2023 Continuous pulse oximetry Pulse oximetry, continuous Respiratory Care Routine Every 4hr until discontinued starting 12/03/2023 [employer] Comment on above: Every 4hr until disc ontinued starting 12/03/2023 Glucose [Mass/volume ] in Serum or Plasma [facility] Comment on above: 4X Daily (AC & HS) u ntil discontinued starting 11/30/2023 As Needed until disc ontinued starting 11/30/2023 Hemoglobin A1c/Hemoglobin.total in Blood HGB A1C Lab Routine Type 2 diabetes mellitus with other specified complication, with long-term current use of insulin (HCC) Pre-op evaluation 01/21/2022 9:30 AM EDT [facility] Work Phone: End: 12-23-2023 Hemoglobin and Hematocrit Hemoglobin and Hematocrit Lab Routine Every Other Day for 10 Occurrences starting 12/05/2023 until 12/23/2023, 2 completed [employer] Comment on above: Every Other Day for 10 Occurrences starting 12/05/2023 until 12/23/2023, 2 completed Oxygen therapy [Minimum Data Set] Initiate Oxygen Therapy Protocol Respiratory Care Routine As Needed until discontinued starting 11/29/2023 [employer] Comment on above: As Needed until disc ontinued starting 11/29/2023 End: 12-23-2023 Platelets [#/volume] in Blood Platelet Count Lab Routine Every Other Day for 10 Occurrences starting 12/05/2023 until 12/23/2023, 2 completed [facility] Comment on above: Every Other Day for 10 Occurrences starting 12/05/2023 until 12/23/2023, 2 completed End: 12-14-2023 Protime-INR Protime-INR Lab Routine Daily for 7 Days starting 12/08/2023 until 12/14/2023, 1 completed [employer] Comment on above: Daily for 7 Days sta rting 12/08/2023 until 12/14/2023, 1 completed End: 11-30-2023 DATA PROCESSING OPERATOR clinical swallow evaluation DATA PROCESSING OPERATOR clinical swallow evaluation DATA PROCESSING OPERATOR Routine One Time for 1 Occurrences starting 11/30/2023 until 11/30/2023 [employer] Work Phone: Comment on above: One Time for 1 Occur rences starting 11/30/2023 until 11/30/2023 End: 11-30-2023 SPECIMEN REJECTION [facility] Comment on above: Once for 1 Occurrenc es starting 11/30/2023 until 11/30/2023 End: 11-30-2023 Speech and language therapy regime DATA PROCESSING OPERATOR eval and treat DATA PROCESSING OPERATOR Routine One Time for 1 Occurrences starting 11/30/2023 until 11/30/2023 [employer] Comment on above: One Time for 1 Occur rences starting 11/30/2023 until 11/30/2023 STAPH AUREUS PCR STAPH AUREUS PC R Lab Routine 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 Immun[facility] Immunization Date Immunization Notes Care Provider Tierney avera [facility] 07-19-2021 influenza virus vacc ine, unspecified formulation Wesley Rose MD Work Phone: [facility] 07-07-2020 Influenza, injectabl e, Madin [place] Canine Kidney, preservative free, quadrivalent Harris Faustin MD Work Phone: [facility] 08-01-2019 influenza virus vacc ine, unspecified formulation Harris Faustin MD Work Phone: [facility] 08-10-2018 influenza, injectabl e, quadrivalent, preservative free Harris Faustin MD Work Phone: [facility] 07-24-2018 Influenza, injectabl e, Madin [place] Canine Kidney, preservative free, quadrivalent Harris Faustin MD Work Phone: [facility] 09-10-2017 influenza virus vacc ine, unspecified formulation Harris Faustin MD Work Phone: [facility] 08-11-2017 pneumococcal polysaccharide vaccine, 23 valent Harris Faustin MD Work Phone: [facility] 08-05-2016 influenza virus vacc ine, unspecified formulation Harris Faustin MD Work Phone: [facility] 11-13-2015 pneumococcal conjuga te vaccine, 13 valent Harris Faustin MD Work Phone: [facility] 07-18-2015 influenza virus vacc ine, unspecified formulation [facility] 07-18-2015 influenza virus vacc ine, whole virus Harris Faustin MD Work Phone: [facility] 07-06-2015 influenza, high dose seasonal, preservative-free Harris Faustin MD Work Phone: [facility] 09-13-2014 influenza, injectabl e, quadrivalent, preservative free Harris Faustin MD Work Phone: [facility] 06-25-2013 influenza, seasonal, injectable, preservative free Harris Faustin MD Work Phone: [facility] 06-17-2012 influenza, seasonal, injectable Harris Faustin MD Work Phone: [facility] 09-11-2010 pneumococcal polysaccharide vaccine, 23 valent Harris Faustin MD Work Phone: [facility] Payers Date Payer Category Payer Medicare [id number] 2022 Medicaid 2021 Medicare [id number] 2021 Medicare [id number] 2021 Unknown [id number] 2019 Unknown ANTHEM BLUE CROS S AND BLUE SHIELD ANTHEM MEDIBLUE HMO [id number] 2019-Present [phone] [address] [place] [address] O [id number] [id number] .[id number] 2018 Unknown [id number] 1960 Unknown [id number] 2.16.840.1.603425.3.579.2.6 47 1960 Unknown [id number] 2.16.840.1.881186.3.579.2.5 93 1960 Unknown [id number] 2.16.840.1.932871.3.579.2.5 93 1960 Unknown [id number] 2.16.840.1.006087.3.579.2.5 93 1960 Unknown [id number] 2.16.840.1.894409.3.579.2.5 93 1960 Unknown [id number] 2.16.840.1.043875.3.579.2.5 93 1960 Unknown [id number] 2.16.840.1.937778.3.579.2.5 93 1960 Unknown [id number] 2.16.840.1.844675.3.579.2.5 93 1960 Unknown [id number] 2.16.840.1.297264.3.579.2.5 93 1960 Unknown [id number] 2.16.840.1.035341.3.579.2.5 93 1960 Unknown [id number] 2.16.840.1.340108.3.579.2.5 93 1960 Unknown [id number] 2.16.840.1.047141.3.579.2.5 93 1960 Unknown [id number] 2.16.840.1.163148.3.579.2.5 93 1960 Unknown [id number] 2.16.840.1.401985.3.579.2.5 93 1960 Unknown [id number] 2.16.840.1.000920.3.579.2.5 93 1960 Unknown [id number] 2.16.840.1.682222.3.579.2.5 93 1960 Unknown [id number] 2.16.840.1.814947.3.579.2.5 93 1960 Unknown [id number] 2.16.840.1.120523.3.579.2.5 93 1960 Unknown [id number] 2.16.840.1.426929.3.579.2.5 93 1960 Unknown [id number] 2.16.840.1.833354.3.579.2.5 93 1960 Unknown [id number] 2.16.840.1.787254.3.579.2.1 96 1960 Unknown [id number] 2.16.840.1.934512.3.579.2.1 286 1960 Unknown [id number] 2.16.840.1.727876.3.579.2.1 286 1960 Unknown [id number] 2.16.840.1.604421.3.579.2.1 286 1960 Unknown [id number] 2.16.840.1.575723.3.579.2.1 286 1960 Unknown [id number] 2.16.840.1.600610.3.579.2.1 286 1960 Unknown [id number] 2..840.1.028223.3.579.2.1 286 1960 Unknown [id number] 2.16.840.1.313771.3.579.2.1 77 1960 Unknown [id number] 2.16.840.1.868785.3.579.2.1 73 1960 Unknown [id number] 2.16.840.1.181531.3.579.2.1 73 1960 Unknown [id number] 2.840.1.439910.3.579.2.1 75 1960 Unknown [id number] .840.1.304296.3.579.2.1 286 1960 Unknown [id number] 2.840.1.756249.3.579.2.1 259 1960 Unknown [id number] 2.840.1.864107.3.579.2.1 259 1960 Unknown [id number] .840.1.509310.3.579.2.1 259 1960 Unknown [id number] .840.1.253772.3.579.2.1 259 1960 Unknown [id number] .840.1.317465.3.579.2.1 259 1960 Unknown [id number] 2..840.1.842901.3.579.2.1 259 1960 Unknown [id number] 2.840.1.258666.3.579.2.1 259 1960 Unknown [id number] 2.840.1.124389.3.579.2.1 259 1959 Private Health Insurance [id number] Unknown [id number] .[id number] Social History Date Type Detail Facility Start: 05-31-2013 End: 10-27-2023 Tobacco smoking status NHIS Never smoked tobacco [facility] Work Phone: Start: 05-31-2013 End: 10-27-2023 Tobacco use and exposure Former smokeless tobacco user [facility] Work Phone: End: 09-17-2015 History of tobacco use Chews Tobacco [facility] Work Phone: Start: 06-15-2021 End: 11-06-2023 Alcohol intake Current non-drinker of alcohol (finding) [facility] Start: 01-04-2020 History SDOH Alcohol Frequency 1 [facility] Start: 01-04-2020 Tobacco Comment 30 years [facility] Start: 1960 Sex Assigned At Male C [facility] Start: 05-31-2013 End: 09-19-2023 Tobacco use and exposure User of smokeless tobacco [facility] Work Phone: Start: 01-11-2022 End: 01-21-2022 Exposure to SARS-CoV-2 (event) Not sure [facility] Start: 01-04-2020 End: 11-29-2023 Sex Assigned At [facility] History of tobacco use Cigarette Smoker C [facility] Work Phone: Start: 01-04-2020 End: 11-29-2023 History of Social function [facility] How often to you hav e a drink containing alcohol? Never [facility] Average Number of Drinks Not on file [facility] Start: 08-16-2019 Gender identity Identifies as male gender (finding) [facility] Start: 08-16-2019 Sexual orientation Heterosexual (fin oneal) [facility] Start: 10-28-2023 End: 12-03-2023 Alcohol intake Lifetime non-drinker (finding) [employer] Has the electric, Zero[employer] s, oil, or water [employer] threatened to shut off services in your home in past 12Mo No [employer] (I/We) worried wheth er (my/our) food would run out before (I/we) got money to buy more. Never true [employer] NEGATED: Highlighted rowStart: HERNÁN History of tobacco use Passive smoker [facility] Medical Equipment Procedure Code Equipment Code Equipment Origin al Text Equipment Identifier Dates Ipg Activa Sc Db s Dual Extn - [id number] Start: 06-30-2013 Comment on above: Description: ACTIVA SC Multi-program Leonor rostimulator for deep Brain Stimulation Neurostimulator Activa Sc 0-10.5v 2-250hz 0-25.5ma 2.4inx2.2in .4in - [id number] Start: 07-24-2016 Neurostimulator Activa Sc 0-10.5v 2-250hz 0-25.5ma 2.4inx2.2in .4in - [id number] Start: 06-30-2019 Neurostimulator Activa Sc 0-10.5v 2-250hz 0-25.5ma 2.4inx2.2in .4in - [id number] Start: 01-30-2022 [id number], [id number] Start: 06-29-2014 Comment on above: Use as directed sq bid Clinical Notes 03-22-2021 to 07-13-2024 Janneth Nelson, NABEEL - 12/08/2023 6:28 PM Janneth Dennison, NABEEL - 12/08/2023 6:01 PM Lori Fernandes MD - 12/08/2023 3:35 PM Pete Lamb PTA - 12/08/2023 2:02 PM Malorie Instr - CHERIE Note Date & Type Note Facility 07-13-2024 Note Pt is here for a thr ee month follow up. [facility] Consult Note Reason for Consultation: Syncope, s/p loop implant 01/09/23 07/13/24 Patient had a loop check done which revealed multiple episodes of bradycardia but no atrial fibrillation was seen. He is limited by his LE and UE weakness from CIDP and unable to tolerate infusion treatment. 10/21/23 Telephone apt today for follow up [facility] for chest pain. He was seen [...] reveals no events. Had recent ECHO at [facility] which was normal. LOOP: ECHO 10/08/23 08/19/23: [...] Determinants of Health Tobacco Use: Low Risk (06/02/2024) Patient History Smoking Tobacco Use: Never Smokeless Tobacco Use: Never Passive Exposure: Not on file Alcohol Use: Not on file Financial Resource Strain: Not on file Food Insecurity: Not on file Transportation Needs: Not on file Physical Activity: Not on file Stress: Not on file Social Connections: Not on file Intimate Partner Violence: Unknown (06/02/2024) Humiliation, Afraid, Rape, and Kick questionnaire Fear of Current or Ex-Partner: No Emotionally Abused: Not on file Physically Abused: Not on file Sexually Abused: Not on file Depression: Not at risk (06/02/2024) PHQ-2 PHQ-2 Score: 0 Housing Stability: Not on file Utilities: Not on file Meds: Current Outpatient Medications on File Prior to Visit Medication Sig Dispense Refill allopurinol (Zyloprim) 100 mg tablet Take 100 mg by mouth 1 (one) time each day at the same time. apixaban (Eliquis) 5 mg tablet Take 5 mg by mouth in the morning and at bedtime. atorvastatin (Lipitor) 40 mg tablet Take 40 mg by mouth in the morning. candesartan (Atacand) 8 mg tablet Take 1 tablet (8 mg) by mouth in the morning. 30 tablet 11 cetirizine (ZyrTEC) 10 mg tablet Take 10 mg by mouth in the morning and at bedtime. cloNIDine (Catapres) 0.1 mg tablet Take 0.1 mcg by mouth in the morning and at bedtime. furosemide (Lasix) 40 mg tablet Take 40 mg by mouth in the morning and at bedtime. HYDROcodone-acetaminophen (Coalgood) 5-325 mg tablet indomethacin (Indocin) 50 mg capsule TAKE 1 CAPSULE BY MOUTH THREE TIMES A DAY NEEDED FOR PAIN WITH FOOD OR MILK insulin degludec (Tresiba FlexTouch) 100 unit/mL (3 mL) injection every 12 (twelve) hours. Jardiance 10 mg Take 25 mg by mouth 1 (one) (more content not included)... 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 reports no chest pain. reports numbness and weakness arms and legs Physical Exam Patient is a 63 yo male Constitutional: General Appearance: NAD and comfort comfortable. Ambulation: limited ambulation in a wheelchair Psychiatric: Orientation: oriented to time, place, and person. Mood and Affect: normal affect and mood and active and alert. Insight: good judgement. Gait and Station:he is a wheelchair Cardiovascular System: Extremities warm and well perfused Lymph Nodes: Mood and Affect: mood and affect normal. Neurologic: Sensation: not intact right leg and left foot stocking distribution Motor 0/5 hip flexion and knee extension, left quad and hip , ant tib 4/5 Head: Head: normocephalic and atraumatic. Neck: Neck: trachea midline. Lungs: Respiratory effort: no dyspnea. Lumbar spine skin intact, ttp midline, decreased ROM, no laxity Xrays Degenerative changes lumbar spine, CT shows chronic bilateral par fracture L5 Plan Case discussed with Dr Davies and CT / X-rays reviewed. [facility]G BLE Follow up with Dr Davies after EMG [facility] 03-26-2024 Note [facility] Note [...] and at bedtime., Disp: , Rfl: HYDROcodone-acetaminophen (Coalgood) 5-325 mg tablet, , Disp: , Rfl: [...] 40 mg by (more content not included)... [facility] 01-29-2024 Note Patient here for 2 w [place] follow up diastolic heart failure, hx of [...] All other systems reviewed and are negative. [facility] 01-29-2024 Note [facility] Reason for Consultation: Syncope, [...] unresponsive during this. He was sent to [facility] for neuro eval. He continues to have [...] 10/21/23 Telephone apt today for follow up [facility] for chest pain. He was seen [...] reveals no events. Had recent ECHO at [facility] which was normal. LOOP: 08/19/23: Here for [...] file Physically Abu (more content not included)... [facility] 01-13-2024 Note [facility] Reason for Consultation: Syncope, [...] unresponsive during this. He was sent to [facility] for neuro eval. He continues to have issues with chest pain. He also has pain else where. He is on opiods and muscle relaxers. He is getting a new pain specialist. She is following with neurology. Work up for multiple dx. 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 His mobility has been limited. Unable to walk like he use to, he ambulates with a walker. He is having worsening issues with falls. 10/21/23 Telephone apt today for follow up [facility] for chest pain. He was seen [...] reveals no events. Had recent ECHO at [place] which was normal. LOOP: 08/19/23: Here for [...] on file Intimate Partner Violence: Unknown (11/27/2023) [place] Safety & Environment Fear of Current or Ex-Partner: Not on file Emotionally Abused: Not on file Physically Abused: Not on file Sexually Abused: Not on file Physically or Sexually Abused: Not on file Depression: Not on file Housing Stability: Not on file Utilities: Not on file Meds: Current (more content not included)... [facility] 12-08-2023 History of Present illness Narrative Called report to Bee at [facility] at [phone]. Answered all questions and advised that the patient will be leaving here around 8:00 PM tonight. Attempted to call report to [facility] at [phone]. Was on hold for over 10 minutes. Images from the original note were not included. [facility] Office: [phone] Alberto Rice DO, Luciano Murphy DO, Humza [...] Valentine MD, Rosalia Mobley CNP, Criss Gray HUMAN RESOURCES ADMIN, Lefty Matute, HUMAN RESOURCES ADMIN, Brittny Quinones, COLTON, Kacey Meeks, HUMAN RESOURCES ADMIN, Sugey Barillas, HUMAN RESOURCES ADMIN, Mary Jo Bonner CNP, Kathy Granados, HUMAN RESOURCES ADMIN, Sigrid Velásquez, HUMAN RESOURCES ADMIN, Janine Turpin, PARolfC, Sue Willams, PA-C, Savi Iqbal, HUMAN RESOURCES ADMIN, Beckie Mello, HUMAN RESOURCES ADMIN, Nora Mace, HUMAN RESOURCES ADMIN, Jyoti Rojo, RATE ANALYST, Ronda Sellers, HUMAN RESOURCES ADMIN, Janell Hoyt, SHERYL, Caryl Gonzalez, SHERYL [facility] IN-PATIENT SERVICE [facility] Progress Note 12/08/2023 3:35 PM Name: Andry Pierre Acct: [id number] Room: 0143/0143-01 IP Day: 9 Admit Date: 11/29/2023 8:06 PM [...] brain stimulator 10/2008 who initially presented to [facility] 11/24 s/p fall in bathroom with acute left hip/upper thigh and back pain (hit head, no LOC) presents with No chief complaint on file. and is admitted to the hospital for the management of AMS (altered mental status). Patient transferred from [place] after undergoing tilt table evaluation for concern for orthostasis on 11/28/2022 with history of recurrent episodes of dizziness with history of stroke, complicated history. tilt table test complicated by worsening acute symptoms of dizziness with chest pain with altered sensorium. Although tilt test unremarkable for orthostasis, patient was evaluated in ED with acute symptoms and recommended admission pending transfer to [facility] for neurology evaluation. Unfortunately with [...] with occasional shortness of breath While in [place] ED patient did develop symptomatic hypoglycemia with blood sugars in the 50s with symptoms of feeling funny . 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 Subsequently returned status post fall 11/24 with [...] 03:20 PM PO2ART 92.5 08/22/2011 03:20 PM OEJ4VVN 26.0 08/22/2011 03:20 PM NBEA NOT REPORTED 08/22/2011 03:20 PM PBEA 1.8 08/22/2011 03:20 PM [id number] 95.6 08/22/2011 03:20 PM FIO2 INFORMATION NOT PROVIDED 11/30/2023 12:05 AM Lab Results Component Value Date/Time SPECIAL NOT REPORTED 10/20/2012 10:15 AM SPECIAL NOT REPORTED 10/20/2012 10:15 AM Lab Results Component Value Date/Time CULTURE NO GROWTH 10/20/2012 10:15 AM CULTURE 10/20/2012 10:15 AM Performed at [facility] [address] [address] Radiology: XR CHEST (2 VW) Result Date: [...] 2 units and then adjust accordingly Recurrent VUVg-JKRj-sjtdfk neurology plan History of prothrombin gene mutation with prior DVT-continue Coumadin CKD stage III-continue to monitor creatinine and will need follow-up with nephrology/PCP PAM on CPAP Hx of dvt: on coumadin. Pharmacy managing Discharge planning after the above workup Lori Leblanc MD 12/08/2023 3:35 PM Physical Therapy Facility/Department: [address] [facility] Physical Therapy Treatment Note Name: [...] abduction/adduction, heel/toe raises, and marches Reps 20 [facility] - Mobility [facility] Basic Mobility - Inpatient How much [...] 3-5 steps with a railing?: A Lot [facility] Inpatient Mobility Raw Score : 15 [facility] Inpatient T-Scale Score : 39.45 Mobility Inpatient CMS 0-100% Score: 57.7 Mobility Inpatient [facility] G-Code Modifier : CK Goals Short [...] other days (per medication management clinic in [place], last visit 11/11; clinic noted recent dose [...] Warfain today Daily PT/INR while inpatient. Nolan Mccarty, PharmManpreet, 12/08/2023 11:58 AM Pharmacy Note Warfarin Consult follow-up Warfarin dose prior to admission: 17.5 mg Sun, 15 mg all other days (per medication management clinic in [place], last visit 11/11; clinic noted recent dose [...] from the original note were not included. [facility] Office: [phone] Alberto Rice DO, Luciano Murphy DO, Humza [...] Lefty Matute CNP, Brittny Quinones, COLTON, Kacey Meeks CNP, Sugey Barillas CNP, Mary Jo Bonner HUMAN RESOURCES ADMIN, Kathy Granados, HUMAN RESOURCES ADMIN, Sigrid Velásquez, HUMAN RESOURCES ADMIN, Janine Turpin, PARolfC, Sue Willams, PARolfC, Savi Iqbal, HUMAN RESOURCES ADMIN, Beckie Mello, HUMAN RESOURCES ADMIN, Nora Mace, HUMAN RESOURCES ADMIN, Jyoti Rojo, RATE ANALYST, Ronda Sellers, HUMAN RESOURCES ADMIN, Janell Hoyt, HUMAN RESOURCES ADMIN, Caryl Gonzalez, HUMAN RESOURCES ADMIN [facility] IN-PATIENT SERVICE [facility] Progress Note 12/07/2023 9:05 AM Name: Andry Pierre Acct: [id number] Room: [address] [place] [address] Day: 8 Admit Date: 11/29/2023 8:06 PM [...] brain stimulator 10/2008 who initially presented to [facility] 11/24 s/p fall in bathroom with acute left hip/upper thigh and back pain (hit head, no LOC) presents with No chief complaint on file. and is admitted to the hospital for the management of AMS (altered mental status). Patient transferred from [place] after undergoing tilt table evaluation for concern for orthostasis on 11/28/2022 with history of recurrent episodes of dizziness with history of stroke, complicated history. tilt table test complicated by worsening acute symptoms of dizziness with chest pain with altered sensorium. Although tilt test unremarkable for orthostasis, patient was evaluated in ED with acute symptoms and recommended admission pending transfer to [facility] for neurology evaluation. Unfortunately with [...] with occasional shortness of breath While in [place] ED patient did develop symptomatic hypoglycemia with blood sugars in the 50s with symptoms of feeling funny . 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 Subsequently returned status post fall 11/24 with [...] 03:20 PM PO2ART 92.5 08/22/2011 03:20 PM REH7LVN 26.0 08/22/2011 03:20 PM NBEA NOT REPORTED 08/22/2011 03:20 PM PBEA 1.8 08/22/2011 03:20 PM T2TDFKJL 95.6 08/22/2011 03:20 PM FIO2 INFORMATION NOT PROVIDED 11/30/2023 12:05 AM Lab Results Component Value Date/Time SPECIAL NOT REPORTED 10/20/2012 10:15 AM SPECIAL NOT REPORTED 10/20/2012 10:15 AM Lab Results Component Value Date/Time CULTURE NO GROWTH 10/20/2012 10:15 AM CULTURE 10/20/2012 10:15 AM Performed at [facility] [address] [place] [address] [id number] Radiology: XR CHEST (2 VW) Result Date: [...] 2 units and then adjust accordingly Recurrent DRUt-EMXa-eajnjb neurology plan History of prothrombin gene mutation with prior DVT-continue Coumadin CKD stage III-continue to monitor creatinine and will need follow-up with nephrology/PCP PAM on CPAP Hx of dvt: on coumadin. Pharmacy managing Discharge planning after the above workup Lori Leblanc MD 12/07/2023 9:05 AM Images from the original note were not included. [facility] Office: [phone] Alberto Rice DO, Luciano Murphy DO, Humza [...] CNP, Mary Jo Bonner CNP, Kathy Granados, HUMAN RESOURCES ADMIN, Sigrid Velásquez, HUMAN RESOURCES ADMIN, Janine Turpin, KATHRINC, Sue Willams, KATHRINC, Savi Iqbal, HUMAN RESOURCES ADMIN, Beckie Mello, HUMAN RESOURCES ADMIN, Nora Mace, HUMAN RESOURCES ADMIN, Jyoti Rojo, RATE ANALYST, Ronda Sellers, HUMAN RESOURCES ADMIN, Janell Hoyt, HUMAN RESOURCES ADMIN, Caryl Gonzalez, HUMAN RESOURCES ADMIN [facility] IN-PATIENT SERVICE [facility] Progress Note 12/06/2023 1:56 PM Name: Andry Pierre Acct: [id number] Room: [address] [place] [address] IP Day: 7 Admit Date: 11/29/2023 8:06 [...] brain stimulator 10/2008 who initially presented to [facility] 11/24 s/p fall in bathroom with acute left hip/upper thigh and back pain (hit head, no LOC) presents with No chief complaint on file. and is admitted to the hospital for the management of AMS (altered mental status). Patient transferred from [place] after undergoing tilt table evaluation for concern for orthostasis on 11/28/2022 with history of recurrent episodes of dizziness with history of stroke, complicated history. tilt table test complicated by worsening acute symptoms of dizziness with chest pain with altered sensorium. Although tilt test unremarkable for orthostasis, patient was evaluated in ED with acute symptoms and recommended admission pending transfer to [facility] for neurology evaluation. Unfortunately with [...] with occasional shortness of breath While in [place] ED patient did develop symptomatic hypoglycemia with blood sugars in the 50s with symptoms of feeling funny . 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 Subsequently returned status post fall 11/24 with [...] F (36.9 C) Recent Labs 12/05/23 1716 12/05/235 12/06/23 0742 12/06/23 1259 POCGLU 137* 160* [...] Labs 12/05/23 0756 12/05/23 1210 12/05/23 1716 12/05/23 2025 12/06/23 0742 12/06/23 1259 POCGLU 131* 189* 137* 160* 119* 176* ABG: Lab Results Component Value Date/Time PH 7.413 08/22/2011 03:20 PM PCO2 41.5 08/22/2011 03:20 PM PO2ART 92.5 08/22/2011 03:20 PM BJT1XAW 26.0 08/22/2011 03:20 PM NBEA NOT REPORTED 08/22/2011 03:20 PM PBEA 1.8 08/22/2011 03:20 PM N4JQHUMN 95.6 08/22/2011 03:20 PM FIO2 INFORMATION NOT PROVIDED 11/30/2023 12:05 AM Lab Results Component Value Date/Time SPECIAL NOT REPORTED 10/20/2012 10:15 AM SPECIAL NOT REPORTED 10/20/2012 10:15 AM Lab Results Component Value Date/Time CULTURE NO GROWTH 10/20/2012 10:15 AM CULTURE 10/20/2012 10:15 AM Performed at [facility] [address] [place] [id number] Radiology: XR CHEST (2 VW) Result Date: [...] 2 units and then adjust accordingly Recurrent RHIr-QCSv-qoqbun neurology plan History of prothrombin gene mutation with prior DVT-continue Coumadin CKD stage III-continue to monitor creatinine and will need follow-up with nephrology/PCP PAM on CPAP Discharge planning after the above workup Lori Leblanc MD 12/06/2023 1:56 PM Pharmacy Note Warfarin Consult follow-up Warfarin dose prior to admission: 17.5 mg Sun, 15 mg all other days (per medication management clinic in [place], last visit 11/11; clinic noted recent dose [...] regimen Daily PT/INR while inpatient. Nolan Mccarty, PharmD, 12/06/2023 9:52 AM Pharmacy Note Warfarin Consult follow-up Warfarin dose prior to admission: 17.5 mg Sun, 15 mg all other days (per medication management clinic in [place], last visit 11/11; clinic noted recent dose [...] regimen Daily PT/INR while inpatient. 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 Completed by Tess Robert Measurement And Sensing Technician Clinician Co-signed by Kathy Rivera M.A.CCC/DATA PROCESSING OPERATOR Occupational Therapy Facility/Department: [address] [facility] Occupational Therapy Daily Treatment Note [...] [facility]), Stroke risk, Tracheostomy in place (HCC), Tremors [...] Pt engaged in weight-shifting while standing and ginette difficulty lifting L foot off of floor d/t increased pain in R foot when weight-shifting.) Transfer Training Transfer Training: Yes Overall Level of Assistance: Additional time;Adaptive equipment;Maximum assistance;Assist X1 (Pt completed STS w/ RW from chair MAX A x1. Heavy reliance on B arm rests to initiate stands, reaches for RW when in forward flex posture, bears weight in BUEs on RW to building maintenance custodian upright posture.) Interventions: Safety awareness training (body [...] Outcome: Verbalized understanding;Demonstrated understanding AM-PAC - ADL AM-[facility] Daily Activity - Inpatient How much help [...] Time Individual Concurrent Group Co-treatment Time In 08 Time Out 0944 Minutes 57 Timed Code Treatment Minutes: 57 Minutes CAROLE Arriola Images from the original note were not included. [facility] Office: [phone] Alberto Rice DO, Luciano Murhpy DO, Humza James DO, Jc Maria DO, [...] Rosalia Mobley CNP, Criss Gray CNP, Lefty Matute, HUMAN RESOURCES ADMIN, Brittny Quinones, DNP, Kacey Meeks, HUMAN RESOURCES ADMIN, Sugey Barillas, HUMAN RESOURCES ADMIN, Mary Jo Bonner, HUMAN RESOURCES ADMIN, Kathy Granados, HUMAN RESOURCES ADMIN, Sigrid Velásquez, HUMAN RESOURCES ADMIN, Janine Turpin, PA-C, Sue Willams, PA-C, Savi Iqbal, HUMAN RESOURCES ADMIN, Beckie Mello, HUMAN RESOURCES ADMIN, Nora Mace, HUMAN RESOURCES ADMIN, Jyoti Rojo, RATE ANALYST, Ronda Sellers, HUMAN RESOURCES ADMIN, Janell Hoyt, HUMAN RESOURCES ADMIN, Caryl Gonzalez, HUMAN RESOURCES ADMIN [facility] IN-PATIENT SERVICE [facility] Progress Note 12/05/2023 8:58 AM Name: Andry Pierre Acct: [id number] Room: 0143/0143-01 Day: 6 Admit Date: 11/29/2023 8:06 PM [...] brain stimulator 10/2008 who initially presented to [facility] 11/24 s/p fall in bathroom with acute left hip/upper thigh and back pain (hit head, no LOC) presents with No chief complaint on file. and is admitted to the hospital for the management of AMS (altered mental status). Patient transferred from [place] after undergoing tilt table evaluation for concern for orthostasis on 11/28/2022 with history of recurrent episodes of dizziness with history of stroke, complicated history. tilt table test complicated by worsening acute symptoms of dizziness with chest pain with altered sensorium. Although tilt test unremarkable for orthostasis, patient was evaluated in ED with acute symptoms and recommended admission pending transfer to [facility] for neurology evaluation. Unfortunately with [...] with occasional shortness of breath While in [place] ED patient did develop symptomatic hypoglycemia with blood sugars in the 50s with symptoms of feeling funny . 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 Subsequently returned status post fall 11/24 with [...] 03:20 PM PO2ART 92.5 08/22/2011 03:20 PM LUS8YWD 26.0 08/22/2011 03:20 PM NBEA NOT REPORTED 08/22/2011 03:20 PM PBEA 1.8 08/22/2011 03:20 PM Q1YKHZYB 95.6 08/22/2011 03:20 PM FIO2 INFORMATION NOT PROVIDED 11/30/2023 12:05 AM Lab Results Component Value Date/Time SPECIAL NOT REPORTED 10/20/2012 10:15 AM SPECIAL NOT REPORTED 10/20/2012 10:15 AM Lab Results Component Value Date/Time CULTURE NO GROWTH 10/20/2012 10:15 AM CULTURE 10/20/2012 10:15 AM Performed at [facility] [address] [address] Radiology: XR CHEST (2 VW) [...] (HCC) Generalized weakness CHF (congestive heart failure) (MUSC [...] 2 units and then adjust accordingly Recurrent LAYi-UHNq-plkcdj neurology plan History of prothrombin gene mutation with prior DVT-continue Coumadin CKD stage III-continue to monitor creatinine and will need follow-up with nephrology/PCP PAM on CPAP Discharge planning after the above workup Lori Leblanc MD 12/05/2023 8:58 AM Images from the original note were not included. [facility] Office: [phone] Alberto Rice DO, Luciano Murphy DO, Humza James DO, Jc Maria DO, Nancy Paz MD, Naz Cruz MD, Demetrio Patel MD, Hortensia Maynard MD, Filiberto Vizcaino MD, Polly Ramos MD, Julia Blanco MD, Bibi Kim DO, Yaneli Lugo MD, Chepe Pfeiffer MD, Andry Rice DO, Jamia Nru MD, Obi Alford DO, Jacquelyn Roper MD, Almita Moya MD, Jackie Rivas MD, Kylie Morales MD, Pasha Roy MD, Daniel Swenson MD, Marvin Sneed MD, Abdirahman Hunt MD, Da Moore MD, Geneva Casiano MD, Matthew Perez DO, Tk Connor DO, Jess Parker MD, Garett Valentine MD, Rosalia Mobley, HUMAN RESOURCES ADMIN, Criss Gray, HUMAN RESOURCES ADMIN, Lefty Matute, HUMAN RESOURCES ADMIN, Brittny Quinones, COLTON, Kacey Meeks, HUMAN RESOURCES ADMIN, Sugey Barillas, HUMAN RESOURCES ADMIN, Mary Jo Bonner, HUMAN RESOURCES ADMIN, Kathy Granados, HUMAN RESOURCES ADMIN, Sigrid Velásquez, HUMAN RESOURCES ADMIN, Janine Turpin, PA-C, Sue Willams, PA-C, Savi Iqbal, HUMAN RESOURCES ADMIN, Beckie Mello, HUMAN RESOURCES ADMIN, Nora Mace, HUMAN RESOURCES ADMIN, Jyoti Rojo, RATE ANALYST, Ronda Sellers, HUMAN RESOURCES ADMIN, Janell Hoyt, HUMAN RESOURCES ADMIN, Caryl Gonzalez, HUMAN RESOURCES ADMIN [facility] IN-PATIENT SERVICE [facility] Progress Note 12/04/2023 2:59 PM Name: Andry Pierre Acct: [id number] Room: [address] [place], [place] [address]- IP Day: 5 Admit Date: 11/29/2023 8:06 [...] brain stimulator 10/2008 who initially presented to [facility] 11/24 s/p fall in bathroom with acute left hip/upper thigh and back pain (hit head, no LOC) presents with No chief complaint on file. and is admitted to the hospital for the management of AMS (altered mental status). Patient transferred from [place] after undergoing tilt table evaluation for concern for orthostasis on 11/28/2022 with history of recurrent episodes of dizziness with history of stroke, complicated history. tilt table test complicated by worsening acute symptoms of dizziness with chest pain with altered sensorium. Although tilt test unremarkable for orthostasis, patient was evaluated in ED with acute symptoms and recommended admission pending transfer to [facility] for neurology evaluation. Unfortunately with [...] with occasional shortness of breath While in [place] ED patient did develop symptomatic hypoglycemia with blood sugars in the 50s with symptoms of feeling funny . 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 Subsequently returned status post fall 11/24 with [...] 03:20 PM PO2ART 92.5 08/22/2011 03:20 PM FJW8TJK 26.0 08/22/2011 03:20 PM NBEA NOT REPORTED 08/22/2011 03:20 PM PBEA 1.8 08/22/2011 03:20 PM C8YVPOBQ 95.6 08/22/2011 03:20 PM FIO2 INFORMATION NOT PROVIDED 11/30/2023 12:05 AM Lab Results Component Value Date/Time SPECIAL NOT REPORTED 10/20/2012 10:15 AM SPECIAL NOT REPORTED 10/20/2012 10:15 AM Lab Results Component Value Date/Time CULTURE NO GROWTH 10/20/2012 10:15 AM CULTURE 10/20/2012 10:15 AM Performed at [facility] [address] [place], [place] [id number] Radiology: XR CHEST (2 VW) Result Date: [...] 2 units and then adjust accordingly Recurrent UADr-LGEi-virubw neurology plan History of prothrombin gene mutation [...] Progress Note PATIENT: ANDRY PIERRE CSN #: [id number] : 1960 ADMIT DATE: 11/29/2023 8:06 PM [...] Thank You Torsten LEES BSN CCDS Email [email or web address] office hours M-F 6am to 2:30p Options [...] chronic pain management G89.29 Weight loss, intentional [id number] 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 Cognitive Treatment Treatment time: [id number] Subjective: [x] Alert [x] Cooperative [] Confused [...] at discharge. Treatment completed by: Jimmy Alva, Measurement And Sensing Technician Clinician Pharmacy Note Warfarin Consult follow-up Warfarin dose prior to admission: 17.5 mg Sun, 15 mg all other days (per medication management clinic in [place], last visit 11/11; clinic noted recent dose [...] sent to the ED. Ultimately transferred to [facility]. Neurology was consulted for encephalopathy. [...] been seen by neuromuscular neurology at the [facility] on 11/06/2023 with noted essential tremor. [...] NEEDLE ANTHONY U/F 32G X 4 MM [facility] strip 0 Allergies: Andry [...] polyp at GE junction UPPER GASTROINTESTINAL ENDOSCOPY 15 chronic inflammation UVULOPALATOPHARYGOPLASTY Social History: Andry Pierre [...] INR 3.0 12/04/2023 LABA1C 8.8 (H) 11/25/2023 [id number] 397 11/30/2023 MG 2.7 (H) 11/30/2023 PHOS [...] is already scheduled through his PCP in [place]. Please note that this note was generated using a voice recognition dictation software. Although every effort was made to ensure the accuracy of this automated deck supervisor, some errors in deck supervisor may have occurred. Pharmacy Note Warfarin Consult follow-up Warfarin dose prior to admission: 17.5 mg Sun, 15 mg all other days (per medication management clinic in [place], last visit 11/11; clinic noted recent dose [...] to dose changes Daily PT/INR while inpatient. Zsaneheather Mccarty PharmD, 12/03/2023 4:34 PM Physical Therapy Facility/Department: [address] [facility] Physical Therapy Daily Treatment Note [...] Comments: pt sitting in bedside chair upon service writer advisor entering room. pt retired to bedside chair with call light and bedside table within reach. BLE elevated. Chair alarm set. Subjective Subjective: RN and pt agreeable to work with therapy. pt states having pain in LLE 8/10. pt was adjusted for comfort end of session. Cognition Orientation Overall Orientation Status: Within Functional Limits Orientation Level: Oriented X4 Cognition Overall Cognitive Status: [facility] Cognition Comment: pt having conversation with therapists [...] raises, and marches. Reps: 10 OutComes Score -[facility] - Mobility [facility] Basic Mobility - Inpatient How much [...] 3-5 steps with a railing?: A Lot [facility] Inpatient Mobility Raw Score : 17 [facility] Inpatient T-Scale Score : 42.13 Mobility [...] task. Letty Lemon PTA Occupational Therapy Facility/Department: [address] [facility] Occupational Therapy Daily Treatment Note [...] of arm rests. Cognition Overall Cognitive Status: [facility] Cognition Comment: pt having conversation with therapists and family throughout session. Orientation Overall Orientation Status: Within Functional Limits Orientation Level: Oriented X4 Education Given To: Patient;Family Education Provided: Role of Therapy;ADL Adaptive Strategies;Transfer Training;Orientation;Equipment;E nergy Conservation Education Provided Comments: OT role, transfer safety, AD use, ADLs. Good return. Education Method: Verbal Barriers to Learning: None Education Outcome: Verbalized understanding;Demonstrated understanding [facility] - ADL [facility] Daily Activity - Inpatient How much help [...] How much help for eating meals?: None [facility] Inpatient Daily Activity Raw Score: 18 [facility] Inpatient ADL T-Scale Score : 38.66 ADL Inpatient CMS 0-100% Score: 46.65 ADL Inpatient [facility] G-Code Modifier : CK Goals Short [...] Code Treatment Minutes: 15 Minutes (co-tx w/ BLOOD BANK LABORATORY TECHNICIAN for safety) CAROLE Arriola Physician Progress Note PATIENT: ANDRY PIERRE CSN #: [id number] : 1960 ADMIT DATE: 11/29/2023 8:06 PM [...] Thank You Torsten LEES BSN CCDS Email [email or web address] office hours M-F 6am to 2:30p Options [...] from the original note were not included. [facility] Office: [phone] Alberto Rice DO, Luciano Murphy DO, Humza [...] Matute CNP, Brittny Quinones, COLTON, Kacey Meeks, HUMAN RESOURCES ADMIN, Sugey Barillas HUMAN RESOURCES ADMIN, Mary Jo Bonner HUMAN RESOURCES ADMIN, Kathy Granados CNP, Sigrid Velásquez CNP, Janine Turpin PARolfC, KATHRIN MercedesC, Savi Iqbal CNP, Beckie Mello HUMAN RESOURCES ADMIN, Nora Mace, HUMAN RESOURCES ADMIN, Jyoti Rojo, RATE ANALYST, Ronda Sellers, SHERYL, Janell Hoyt CNP, Caryl Gonzalez HUMAN RESOURCES ADMIN [facility] IN-PATIENT SERVICE [facility] Progress Note 12/03/2023 12:01 PM Name: Andry Pierre Acct: [id number] Room: [id number]- Day: 4 Admit Date: 11/29/2023 8:06 PM [...] brain stimulator 10/2008 who initially presented to [facility] 11/24 s/p fall in bathroom with acute left hip/upper thigh and back pain (hit head, no LOC) presents with No chief complaint on file. and is admitted to the hospital for the management of AMS (altered mental status). Patient transferred from [place] after undergoing tilt table evaluation for concern for orthostasis on 11/28/2022 with history of recurrent episodes of dizziness with history of stroke, complicated history. tilt table test complicated by worsening acute symptoms of dizziness with chest pain with altered sensorium. Although tilt test unremarkable for orthostasis, patient was evaluated in ED with acute symptoms and recommended admission pending transfer to [facility] for neurology evaluation. Unfortunately with [...] with occasional shortness of breath While in [place] ED patient did develop symptomatic hypoglycemia with blood sugars in the 50s with symptoms of feeling funny . 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 Subsequently returned status post fall 11/24 with [...] 03:20 PM PO2ART 92.5 08/22/2011 03:20 PM [id number] 26.0 08/22/2011 03:20 PM NBEA NOT REPORTED 08/22/2011 03:20 PM PBEA 1.8 08/22/2011 03:20 PM [id number] 95.6 08/22/2011 03:20 PM FIO2 INFORMATION NOT PROVIDED 11/30/2023 12:05 AM Lab Results Component Value Date/Time SPECIAL NOT REPORTED 10/20/2012 10:15 AM SPECIAL NOT REPORTED 10/20/2012 10:15 AM Lab Results Component Value Date/Time CULTURE NO GROWTH 10/20/2012 10:15 AM CULTURE 10/20/2012 10:15 AM Performed at [address] [address] Radiology: XR CHEST (2 VW) [...] 2 units and then adjust accordingly Recurrent RZPt-AECm-hejotv neurology plan History of prothrombin gene mutation with prior DVT-continue Coumadin CKD stage III-continue to monitor creatinine and will need follow-up with nephrology/PCP PAM on CPAP Discharge planning after the above workup Lori Leblanc MD 12/03/2023 12:01 PM Physician Progress Note PATIENT: ANDRY PIERRE CSN #: [id number] : 1960 ADMIT DATE: 11/29/2023 8:06 PM [...] Thank You Torsten LEES BSN CCDS Email [email or web address] office hours M-F 6am to 2:30p Options [...] sent to the ED. Ultimately transferred to [facility]. Neurology was consulted for encephalopathy. [...] been seen by neuromuscular neurology at the [facility] on 11/06/2023 with noted essential tremor. [...] NEEDLE ANTHONY U/F 32G X 4 MM [facility] strip 0 Allergies: Andry [...] INR 3.3 12/03/2023 LABA1C 8.8 (H) 11/25/2023 [id number] 397 11/30/2023 MG 2.7 (H) 11/30/2023 PHOS [...] is already scheduled through his PCP in [place]. Please note that this note was generated using a voice recognition dictation software. Although every effort was made to ensure the accuracy of this automated deck supervisor, some errors in deck supervisor may have occurred. Associated attestation - Krystian Colvin MD - 12/03/2023 9:03 PM EST Attending Physician Statement I have discussed the case of Andry Pierre including pertinent history and exam findings with the resident/ HUMAN RESOURCES ADMIN. I reviewed medications, clinical labs, x-rays and other diagnostic tests with the resident/ HUMAN RESOURCES ADMIN. I have seen and examined the patient [...] not tolerate those. He has been having rcqd-whs-vzuaqyv in lower legs and feet and also [...] from the original note were not included. [facility] Office: [phone] Alberto Rice DO, Luciano Murphy DO, Humza [...] Parker MD, Garett Valentine MD, Rosalia Mobley, HUMAN RESOURCES ADMIN, Criss Gray, HUMAN RESOURCES ADMIN, Lefty Matute, HUMAN RESOURCES ADMIN, Brittny Quinones, COLTON, Kacey Meesk, HUMAN RESOURCES ADMIN, Sugey Barillas, HUMAN RESOURCES ADMIN, Mary Jo Bonner, HUMAN RESOURCES ADMIN, Kathy Granados, HUMAN RESOURCES ADMIN, Sigrid Velásquez, HUMAN RESOURCES ADMIN, Janine Turpin, PA-C, Sue Willams, PA-C, Savi Iqbal, HUMAN RESOURCES ADMIN, Beckie Mello, HUMAN RESOURCES ADMIN, Nora Mace, HUMAN RESOURCES ADMIN, Jyoti Rojo, [facility], Ronda Sellers, HUMAN RESOURCES ADMIN, Janell Hoyt, HUMAN RESOURCES ADMIN, Caryl Gonzalez, HUMAN RESOURCES ADMIN [facility] IN-PATIENT SERVICE [facility] Progress Note 12/02/2023 3:11 PM Name: Andry Pierre Acct: [id number] Room: [address] [place] [address] Day: 3 Admit Date: 11/29/2023 8:06 PM [...] back to home dose Pending Placement to [place] Brief History: Per documentation Andry Pierre is a 63 y.o. male with history of prior CVAs (with h/o expressive aphasia, dysphasia), h/o seizures, DM 2, HFpEF, CKD 3, chronic thrombophila w/ +prothrombin gene mutation s/p DVT/PE 01/2023, nonobst CAD (s/p cath 2019), asthma/COPD with PAM with history of Parkinsons vs MG s/p deep brain stimulator 10/2008 who initially presented to [facility] 11/24 s/p fall in bathroom with acute left hip/upper thigh and back pain (hit head, no LOC) presents with No chief complaint on file. and is admitted to the hospital for the management of AMS (altered mental status). Patient transferred from [place] after undergoing tilt table evaluation for concern for orthostasis on 11/28/2022 with history of recurrent episodes of dizziness with history of stroke, complicated history. tilt table test complicated by worsening acute symptoms of dizziness with chest pain with altered sensorium. Although tilt test unremarkable for orthostasis, patient was evaluated in ED with acute symptoms and recommended admission pending transfer to [facility] for neurology evaluation. Unfortunately with [...] with occasional shortness of breath While in [place] ED patient did develop symptomatic hypoglycemia with blood sugars in the 50s with symptoms of feeling funny . 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 Subsequently returned status post fall 11/24 with [...] -410 ml Labs: Hematology: Recent Labs 11/30/23 0612/01/23 0606 12/02/23 0523 WBC 10.1 10.9 11.1 RBC 4.94 4.68 4.61 HGB 15.4 14.6 14.4 HCT 49.3 46.3 46.4 MCV 99.8 98.9 100.7 MCH 31.2 31.2 31.2 MCHC 31.2 31.5 31.0 RDW 14.2 14.4 14.2 PLT 214 223 230 MPV 10.0 10.4 10.3 SEDRATE 18 -- -- CRP 4.8 -- -- INR 3.0 2.8 2.8 Chemistry: Recent Labs 11/30/23 0612/01/23 0612/01/23 1554 12/02/23 0523 NA 146* 140 [...] 03:20 PM PO2ART 92.5 08/22/2011 03:20 PM [id number] 26.0 08/22/2011 03:20 PM NBEA NOT REPORTED 08/22/2011 03:20 PM PBEA 1.8 08/22/2011 03:20 PM [id number] 95.6 08/22/2011 03:20 PM FIO2 INFORMATION NOT PROVIDED 11/30/2023 12:05 AM Lab Results Component Value Date/Time SPECIAL NOT REPORTED 10/20/2012 10:15 AM SPECIAL NOT REPORTED 10/20/2012 10:15 AM Lab Results Component Value Date/Time CULTURE NO GROWTH 10/20/2012 10:15 AM CULTURE 10/20/2012 10:15 AM Performed at [place] [id number] Radiology: XR CHEST (2 VW) Result Date: [...] 2 units and then adjust accordingly Recurrent ZQNo-JATz-hzwjhe neurology plan History of prothrombin gene mutation with prior DVT-continue Coumadin CKD stage III-continue to monitor creatinine and will need follow-up with nephrology/PCP PAM on CPAP Discharge planning after the above workup Lori Leblanc MD 12/02/2023 3:11 PM DATA PROCESSING OPERATOR ALL NOTES Speech Language Pathology [facility] Note Date: 12/02/2023 Patient s [...] chronic pain management G89.29 Weight loss, intentional [id number] 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 Given 30 sec to study picture [...] recommended at discharge. Completed by Tess Robert Measurement And Sensing Technician Clinician Co-signed by Sonja Madera M.S. CCC/DATA PROCESSING OPERATOR Pharmacy Note Warfarin Consult follow-up Warfarin dose prior to admission: 17.5 mg Sun, 15 mg all other days (per medication management clinic in [place], last visit 11/11; clinic noted recent dose [...] NEEDLE ANTHONY U/F 32G X 4 MM [facility]US strip 0 Allergies: Andry [...] INR 2.8 12/02/2023 LABA1C 8.8 (H) 11/25/2023 [id number] 397 11/30/2023 MG 2.7 (H) 11/30/2023 PHOS [...] meaning may be extrapolated by contextual derivation. 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 Completed by Tess Robert Measurement And Sensing Technician Clinician Co-signed by Sonja Madera M.S., CCC/DATA PROCESSING OPERATOR Pharmacy Note Warfarin Consult follow-up Warfarin dose prior to admission: 17.5 mg Sun, 15 mg all other days (per medication management clinic in [place], last visit 11/11; clinic noted recent dose [...] regimen Daily PT/INR while inpatient. Nolan Mccarty, PharmD, 12/01/2023 1:02 PM Physical Therapy Facility/Department: [address] [place] Physical Therapy Initial Assessment Name: [...] brain stimulator 10/2008 who initially presented to [facility] 11/24 s/p fall in bathroom with acute [...] unable to complete seated leg raise or december. bilatereral LE strength functionally assessed as pt [...] and general all over pain reated between -07/15, Pt able to continue with assessment, nurse [...] Needs assistance Transfer Assistance: Needs assistance Active Sheet Sewer: No Patient's Sheet Sewer Info: riends from [employer]. 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 [facility] Office: [phone] Alberto Rice DO, Luciano Murphy DO, Humza James DO, cJ Maria DO, Nancy Paz MD, Naz Cruz [...] Parker MD, Garett Valentine MD, Rosalia Mobley, HUMAN RESOURCES ADMIN, Criss Gray, HUMAN RESOURCES ADMIN, Lefty Matute, HUMAN RESOURCES ADMIN, Brittny Quinones, COLTON, Kacey Meeks, HUMAN RESOURCES ADMIN, Sugey Barillas, HUMAN RESOURCES ADMIN, Mary Jo Bonner, HUMAN RESOURCES ADMIN, Kathy Granados, HUMAN RESOURCES ADMIN, Sigrid Velásquez, HUMAN RESOURCES ADMIN, Janine Turpin, PA-C, Sue Willams, PA-C, Savi Iqbal, HUMAN RESOURCES ADMIN, Beckie Mello, HUMAN RESOURCES ADMIN, Nora Mace, HUMAN RESOURCES ADMIN, Jyoti Rojo, RATE ANALYST, Ronda Sellers, HUMAN RESOURCES ADMIN, Janell Hoyt, HUMAN RESOURCES ADMIN, Caryl Gonzalez, HUMAN RESOURCES ADMIN [facility] IN-PATIENT SERVICE [facility] Progress Note 12/01/2023 1:10 PM Name: Andry Pierre Acct: [id number] Room: 0143/0143-01 Day: 2 Admit Date: 11/29/2023 [...] to multiple medications. Brief History: Per documentation Andyr Pierre is a 63 y.o. male with history of prior CVAs (with h/o expressive aphasia, dysphasia), h/o seizures, DM 2, HFpEF, CKD 3, chronic thrombophila w/ +prothrombin gene mutation s/p DVT/PE 01/2023, nonobst CAD (s/p cath 2019), asthma/COPD with PAM with history of Parkinsons vs MG s/p deep brain stimulator 10/2008 who initially presented to [facility] 11/24 s/p fall in bathroom with acute left hip/upper thigh and back pain (hit head, no LOC) presents with No chief complaint on file. and is admitted to the hospital for the management of AMS (altered mental status). Patient transferred from [place] after undergoing tilt table evaluation for concern for orthostasis on 11/28/2022 with history of recurrent episodes of dizziness with history of stroke, complicated history. tilt table test complicated by worsening acute symptoms of dizziness with chest pain with altered sensorium. Although tilt test unremarkable for orthostasis, patient was evaluated in ED with acute symptoms and recommended admission pending transfer to [facility] for neurology evaluation. Unfortunately with [...] with occasional shortness of breath While in [place] ED patient did develop symptomatic hypoglycemia with blood sugars in the 50s with symptoms of feeling funny . 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 Subsequently returned status post 11/24 with worsening [...] -- 109* 114* 108* CO2 27 -- GLUCOSE 77 -- 151* 49* 144* [...] -- 59 -- Recent Labs 11/28/23 1425 11/28/23201411/29/23201711/29/23203311/30/23 0648 11/30/23 0807 11/30/23 0830 11/30/23 0930 [...] 03:20 PM PO2ART 92.5 08/22/2011 03:20 PM [id number] 26.0 08/22/2011 03:20 PM NBEA NOT REPORTED 08/22/2011 03:20 PM PBEA 1.8 08/22/2011 03:20 PM H6OYRPEL 95.6 08/22/2011 03:20 PM FIO2 INFORMATION NOT PROVIDED 11/30/2023 12:05 AM Lab Results Component Value Date/Time SPECIAL NOT REPORTED 10/20/2012 10:15 AM SPECIAL NOT REPORTED 10/20/2012 10:15 AM Lab Results Component Value Date/Time CULTURE NO GROWTH 10/20/2012 10:15 AM CULTURE 10/20/2012 10:15 AM Performed at [facility] [address] [address] Radiology: XR CHEST (2 VW) Result Date: [...] 2 units and then adjust accordingly Recurrent IEIk-IIFg-lsradc neurology plan History of prothrombin gene mutation [...] INR 2.8 12/01/2023 LABA1C 8.8 (H) 11/25/2023 [id number] 397 11/30/2023 MG 2.7 (H) 11/30/2023 PHOS [...] 75 69 68 Resp: 18 18 16 26 Temp: 98.1 F (36.7 C) 98 F [...] EST I have reviewed and agree with hSira Armentajeanmarie's note. I also saw and examined the patient today. He continues to have similar c/o weakness. I reviewed CTs of the spine, as well as the radiologists' reports. I am able to see records that he had an EMG done at [facility] on 11/06/23, but I am unable to [...] with questions or concerns. Occupational Therapy Facility/Department: [address] [facility] Occupational Therapy Initial Assessment Name: Andry Pierre [...] the house) Transfer Assistance: Needs assistance Active Sheet Sewer: No (friends from [employer]. does not drive) Occupation: On disability [...] Within functional limits Cognition Overall Cognitive Status: [facility] Cognition Comment: pt having fluent conversation throughout [...] Inpatient CMS 0-100% Score: 38.32 ADL Inpatient [facility] G-Code Modifier : CJ Goals Short [...] Code Treatment Minutes: 48 Minutes Pavel Bai/LOREE DATA PROCESSING OPERATOR ALL NOTES Facility/Department: [address] [place] CLINICAL BEDSIDE SWALLOW EVALUATION NAME: [...] brain stimulator 10/2008 who initially presented to [facility] 11/24 s/p fall in bathroom with acute left hip/upper thigh and back pain (hit head, no LOC) presents with No chief complaint on file. and is admitted to the hospital for the management of AMS (altered mental status). Patient transferred from [place] after undergoing tilt table evaluation for concern for orthostasis on 11/28/2022 with history of recurrent episodes of dizziness with history of stroke, complicated history. tilt table test complicated by worsening acute symptoms of dizziness with chest pain with altered sensorium. Although tilt test unremarkable for orthostasis, patient was evaluated in ED with acute symptoms and recommended admission pending transfer to [facility] for neurology evaluation. Unfortunately with [...] with occasional shortness of breath While in [place] ED patient did develop symptomatic hypoglycemia with blood sugars in the 50s with symptoms of feeling funny . 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 Subsequently returned status post fall 11/24 with [...] with partial PO only Treatment Plan Requires DATA PROCESSING OPERATOR Intervention: Yes Referral To: GI Recommended Diet [...] Patient Education Response: Verbalizes understanding Therapy Time [id number] Janis Velazco M.S., [facility]-DATA PROCESSING OPERATOR AMALIA Khanna 11/30/2023 1:24 PM DATA PROCESSING OPERATOR ALL NOTES Facility/Department: [address] [facility] Initial Speech/Language/Cognitive Assessment NAME: Andry [...] Tremors of nervous system; Tracheostomy in place (HCC); Bilateral lower extremity edema; CKD (chronic kidney [...] brain stimulator 10/2008 who initially presented to [facility] 11/24 s/p fall in bathroom with acute left hip/upper thigh and back pain (hit head, no LOC) presents with No chief complaint on file. and is admitted to the hospital for the management of AMS (altered mental status). Patient transferred from [place] after undergoing tilt table evaluation for concern for orthostasis on 11/28/2022 with history of recurrent episodes of dizziness with history of stroke, complicated history. tilt table test complicated by worsening acute symptoms of dizziness with chest pain with altered sensorium. Although tilt test unremarkable for orthostasis, patient was evaluated in ED with acute symptoms and recommended admission pending transfer to [facility] for neurology evaluation. Unfortunately with [...] with occasional shortness of breath While in [place] ED patient did develop symptomatic hypoglycemia with blood sugars in the 50s with symptoms of feeling funny . 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 Subsequently returned status post 11/24 with worsening [...] week at this time. Recommendations: Recommendations Requires DATA PROCESSING OPERATOR Intervention: Yes Recommendations: Modified barium swallow study [...] difficulties Social/Functional History Lives With: Spouse Active Sheet Sewer: No Occupation: Retired Objective: Oral Motor Labial: [...] Limits Orientation: 04/11 Verbal reasoning word associations: 1/ Sequencing: Task 1 3/4 Immediate recall: 2/3, 3/5, 0/3 Delayed recall: 0/3 3 minute delay, 0/3 7 minute delay Verbal reasoning antonyms: 4/ Inductive reasonin/6 Verbal reasoning similarities and differences: [...] Out 1157 Minutes 12 Janis Velazco M.S., CCC-DATA PROCESSING OPERATOR Pharmacy Note Warfarin Consult Andry Pierre is a 63 y.o. male for whom pharmacy has been consulted to manage warfarin therapy. Consulting Physician: Dr Jamia Nur Reason for Admission: [facility] Warfarin dose prior to admission: 10 MG 5 DAYS, 15 MG 2 DAYS A WEEK followed by [facility] Warfarin indication: DVT/PE Target INR range: [...] to follow. Thank you Eros Ansari, PharmD, [facility] Inpatient Clinical Pharmacist [phone] Images from the original note were not included. [facility] Office: [phone] Alberto Rice DO, Luciano Murphy DO, Humza James DO, Jc Maria DO, Nancy Paz MD, Naz Cruz MD, Demetrio Patel MD, Hortenisa Maynard MD, Filiberto Vizcaino MD, Polly Ramos MD, Julia Blanco MD, Bibi Kim DO, Yaneli Lugo MD, Chepe Pfeiffer MD, Andry Rice DO, Jamia Nur MD, Obi Alford DO, Jacquelyn Roper MD, Almita Moya MD, Jackie Rivas MD, Kylie Moralse MD, Pasha Roy MD, Daniel Swenson MD, Marvin Sneed MD, Abdirahman Hunt MD, Da Moore MD, Geneva Casiano MD, Matthew Perez DO, Tk Connor DO, Jess Parker MD, Garett Valentine MD, Rosalia Mobley, HUMAN RESOURCES ADMIN, Criss Gray, HUMAN RESOURCES ADMIN, Lefty Matute, HUMAN RESOURCES ADMIN, Brittny Quinones, [facility], Kacey Meeks, HUMAN RESOURCES ADMIN, Sugey Barillas, HUMAN RESOURCES ADMIN, Mary Jo Bonner, HUMAN RESOURCES ADMIN, Kathy Granados, HUMAN RESOURCES ADMIN, Sigrid Velásquez, HUMAN RESOURCES ADMIN, Janine Turpin, PA-C, Sue Willams, PA-C, Savi Iqbal, HUMAN RESOURCES ADMIN, Beckie Mello, HUMAN RESOURCES ADMIN, Nora Mace, HUMAN RESOURCES ADMIN, Jyoti Rojo, RATE ANALYST, Ronda Sellers, HUMAN RESOURCES ADMIN, Janell Hoyt, HUMAN RESOURCES ADMIN, Caryl Gonzalez, HUMAN RESOURCES ADMIN [facility] IN-PATIENT SERVICE [facility] Progress Note 11/30/2023 7:43 AM Name: Andry Pierre Acct: [id number] Room: 0143/0143-01 Day: 1 Admit Date: 11/29/2023 [...] nonobst CAD (s/p cath 2019), asthma/COPD with PMA with history of Parkinsons vs MG s/p deep brain stimulator 10/2008 who initially presented to [facility] 11/24 s/p fall in bathroom with acute left hip/upper thigh and back pain (hit head, no LOC) presents with No chief complaint on file. and is admitted to the hospital for the management of AMS (altered mental status). Patient transferred from [place] after undergoing tilt table evaluation for concern for orthostasis on 11/28/2022 with history of recurrent episodes of dizziness with history of stroke, complicated history. tilt table test complicated by worsening acute symptoms of dizziness with chest pain with altered sensorium. Although tilt test unremarkable for orthostasis, patient was evaluated in ED with acute symptoms and recommended admission pending transfer to [facility] for neurology evaluation. Unfortunately with [...] with occasional shortness of breath While in [place] ED patient did develop symptomatic hypoglycemia with blood sugars in the 50s with symptoms of feeling funny . 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 Subsequently returned status post fall 11/24 with [...] Labs 11/29/23 1256 11/29/23 1537 11/29/23 1756 11/29/232033 POCGLU 116* 236* 169* 161* I/O (24Hr): [...] 03:20 PM PO2ART 92.5 08/22/2011 03:20 PM CEQ6DFS 26.0 08/22/2011 03:20 PM NBEA NOT REPORTED 08/22/2011 03:20 PM PBEA 1.8 08/22/2011 03:20 PM O5KNHYSR 95.6 08/22/2011 03:20 PM FIO2 INFORMATION NOT PROVIDED 11/30/2023 12:05 AM Lab Results Component Value Date/Time SPECIAL NOT REPORTED 10/20/2012 10:15 AM SPECIAL NOT REPORTED 10/20/2012 10:15 AM Lab Results Component Value Date/Time CULTURE NO GROWTH 10/20/2012 10:15 AM CULTURE 10/20/2012 10:15 AM Performed at [facility] [address] [place] [id number] Radiology: XR CHEST (2 VW) Result Date: [...] post prior neuro and cardiac workup at [facility]. consulted cardiology and neurology to further evaluate. [...] 7:43 AM documented in this encounter [facility] 12-04-2023 Hospital Discharge instructions Janneth Nelson RN [...] Information Primary Emergency Contact: Dariana Pierre Address: [address] [place] [address] of [place] Relation: Spouse Past Surgical History: Past Surgical History: Procedure Laterality Date ANKLE SURGERY Left APPENDECTOMY BRAIN SURGERY brain stimulator CARDIAC CATHETERIZATION CARPAL TUNNEL RELEASE Right CHOLECYSTECTOMY COLONOSCOPY 06/03/2003 normal COLONOSCOPY / DEEP BRAIN STIMULATOR PLACEMENT DIALYSIS FISTULA CREATION [...] chronic pain management G89.29 Weight loss, intentional [id number] 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 Primary osteoarthritis of both knees [...] Assisted Dressing Assisted Toileting Dependent Feeding Independent News Technical Director Independent Med Delivery whole Wound Care Documentation [...] applicable) Name: Address: Dialysis Schedule: Phone: Fax: Instructor Physical/Early Education Teacher signature: PHYSICIAN SECTION Prognosis: Good Condition at Discharge: Stable Rehab Potential (if transferring to Rehab): Good Recommended Labs or Other Treatments After Discharge: cbc and bmp in 1 week Physician Certification: I certify the above information and transfer of Andry Pierre is necessary for the continuing treatment of the diagnosis listed and that he requires Longterm Facility for greater 30 days. Update Admission H&P: No change in H&P PHYSICIAN SIGNATURE: documented in this encounter [facility] 11-06-2023 Note HNO ID: [id number] Author: CRYSTAL GARNER MD Service: ? Author [...] when applicable. EMILIANO Goodson.T Crystal Garner MD [facility] 11-06-2023 Note HNO ID: [id number] Author: OBED FLORIAN MD Service: ? Author Type: Physician Type: Progress Notes Filed: 11/06/2023 12:29 Note Text: [facility] New Patient Evaluation Consulting Provider: Shane Parham PA-C [address] [facility] [address] Consultation requested by Shane Parham PA-C for an opinion regarding weakness. My final recommendations will be communicated back to the requesting physician by way of shared medical record or letter via US mail Individuals who were included in, or assisted with the encounter were: Andry Pierre Obed Florian MD Chief Complaint/Issues: Andry Pierre is a 62 year old ambidextrous male seen in the [facility] for: Leg weakness. Medical history: Hypertension,, CAD [...] Suggested DBS eval with movement d/o at [facility]. Before hospital admission pt reports being [...] to PN. Being followed by a local hoop machine operator for postural dizziness, palpitations, SOB and CP. Reportedly had a loop recorder placed. Per OSH hoop machine operator, loop recorder data neg for arrhythmias. Longstanding [...] reactive. Extraocular mov (more content not included)... [facility] 11-06-2023 History of Present illness Narrative Images from the original note were not included. [facility] New Patient Evaluation Consulting Provider: Shane Parham PA-C [address] [facility] [id number] Consultation requested by Shane Parham PA-C for [...] year old ambidextrous male seen in the [facility] for: Leg weakness. Medical history: Hypertension,, CAD [...] Suggested DBS eval with movement d/o at [facility]. Before hospital admission pt reports being stressed [...] in 2002. Reportedly pt was told by [facility] movement d/o PA that he may have Myasthenia Gravis. Pt notes no ptosis, changes in visual acuity / ? Diplopia (since last stroke ), difficulty swallowing. No changes in speech. 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 Being followed by a local hoop machine operator for postural dizziness, palpitations, SOB and CP. Reportedly had a loop recorder placed. Per OSH hoop machine operator, loop recorder data neg for arrhythmias. Longstanding [...] 5 5 Wrist extension 5 5 Finger flexion/director of outreach 5 5 Finger extension 5 5 First [...] myasthenia gravis. Referral made by movement d/o GREG who ordered MG labs (neg) and EMG [...] hours. 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 It has not been cleared or approved by the US Food and Drug Administration. This test was performed in a CLIA certified laboratory and is intended for clinical purposes. Performed By: [facility] [address] [place] [id number] Welding Machine Operator Electroslag: Uriah Prasad MD, PhD CLIA Number: [id number] Outside Data/Labs: Subjective Patient-Entered Data: NM Treatment [...] which included preparing to see the patient, ggzy-ja-laoc patient care, completing clinical documentation, obtaining and/or reviewing separately obtained history, performing a medically appropriate examination, counseling and educating the patient/family/caregiver, and ordering medications, tests, or procedures. Obed Florian MD documented in this encounter [facility] 10-21-2023 Note [place] [facility] Consul t Note Reason for Consultation: Syncope, s/p loop implant 01/09/23 10/21/23 Telephone apt today for follow up [facility] for chest pain. He was seen [...] reveals no events. Had recent ECHO at [facility] which was normal. LOOP: ECHO 10/08/23 08/19/23: [...] in the morning and at bedtime. HYDROcodone-acetaminophen ([place]) 5-325 mg tablet indomethacin (Indocin) 50 mg [...] by mouth in (more content not included)... [facility] 09-19-2023 Note HNO ID: [id number] Author: Shane Parham PA-C Service: ? Author Type: Physician Bridge Repairer Type: Progress Notes Filed: 09/19/2023 4:39 PM Note Text: [facility] - FOLLOW UP EVALUATION Say Mccormick MD [address] [facility] [address] Dear Say Mccormick MD: I had the [...] Row Office Visit from 09/19/2023 in [facility] PAT from 01/21/2022 in Pre Anesthesia [facility] [...] it Current Outpatient Medications Medication Sig Insulin [place], Disposable, (BD INSULIN PEN NEEDLE UF) 29 [...] at bedtime. c (more content not included)... [facility] 09-12-2023 Miscellaneous Notes spoke with pt [...] 01/21/22 with SN documented in this encounter [facility] 08-19-2023 Note Patient here for 3 m [...] All other systems reviewed and are negative. [facility] 08-19-2023 Note [facility] Consul t [...] in the morning. Coumadin levels followed by [facility] allopurinol (Zyloprim) 100 mg tablet Take 100 mg by mouth 1 (one) time each day at the same time. amLODIPine (Norvasc) 5 mg tablet Take 1 tablet by mouth in the morning. aspirin 81 mg EC tablet Take 1 tablet by mouth in the morning. baclofen (Lioresal) 10 mg tablet TAKE 1/2-1 TABLET BY MOUT (more content not included)... [facility] 07-10-2023 Miscellaneous Notes Spoke with sales utility representative from Dr. Kumar's office, they report [...] Rose's signature (tp). documented in this encounter [facility] 01-24-2022 Miscellaneous Notes Spoke with patient, advised [...] Kerwin Brito RN documented in this encounter [facility] 01-22-2022 History of Present illness Narrative Pt [...] By Kerwin Brito RN In Department: NEUROLOGICAL EPISCOPAL documented in this encounter [facility] 01-21-2022 History of Present illness Narrative CC: [...] Wesley Rose MD documented in this encounter [facility] 01-21-2022 Instructions Reema Elizabeth PA-C - 01/21/2022 7:53 AM EDT PATIENT PREOPERATIVE INSTRUCTIONS Wesley Rose MD has scheduled you for your procedure at this surgery center: [facility] Scheduling Office: [phone] --[address] [place] [address]. Please read below carefully for your personalized [...] Procedures: - YOU MUST HAVE A RESPONSIBLE ENGINEER FISHING VESSEL TAKE YOU HOME. A NURSE EDUCATOR OR NUCLEAR PLANT INSTRUMENT TECHNICIAN CANNOT BE MADE A RESPONSIBLE ENGINEER FISHING VESSEL. - We recommend that a responsible person [...] call the Friday before. Your surgeon s security assistant will tell you what time to call the office. - If you have not reached the departmental security assistant by 5 P.M., call [phone] after 5 P.M. the day before your surgery. Please be aware that emergency situations arise, which may delay or change your surgical time. If this happens, we will notify you as soon as possible and regret any inconvenience. If you already have an Advance Directive, please fax a copy to [phone] or email to for it to be [...] Reema Elizabeth PA-C documented in this encounter [facility] 01-21-2022 History and physical note HISTORY AND [...] 40 Recurrent Major Depression in Partial Remission ([facility]) Difficult Intravenous Access Obstructive Sleep Apnea Syndrome Parkinson's Disease ([facility]) Copd (Chronic Obstructive Pulmonary Disease) ([facility]) Tobacco Use Chf (Congestive Heart Failure) ([facility]) Ckd (Chronic Kidney Disease) Subjective CHIEF COMPLAINT: [...] +Tobacco chew use Cardiovascular: Negative for Recent [place], Angina, Arrhythmia, CAD, Chest Pain +DVT, PE [...] [facility]) H/o PE/DVT in 2006, 2017. [...] of insulin ([facility]) On Levemir. Has continuous glucose [...] initiated at this time: Requested records from hoop machine operator for chart completeness. The Following Tests/Procedures Have [...] TIME: 7:24 AM documented in this encounter [facility] 01-08-2022 Miscellaneous Notes Spoke with patient, his [...] time today. He was last seen in [facility] 11/08/2019. Number to return call [phone] Okay to leave a message ? Yes Last office visit 11/2019 with JS Next office visit with not scheduled Thank you calling [facility]. You will receive a return call within 48 hours ( or 2 business days if close to the weekend). If you feel that this is an urgent issue and needs immediate attention, it is recommended that you contact your primary care provider office or proceed to your nearest Urgent Care Center of Emergency Room ED for evaluation/treatment. documented in this encounter [facility] 11-26-2021 Evaluation note Encounter Date Diagnosis Assessment Notes Nov, Stage 3b chronic kidney disease (CKD) (ICD-10 - N18.32) [facility] 02-08-2022 Evaluation note* Encounter Date Diagnosis [...] 1 diabetes mellitus (ICD-10 - E10.21) Hemoglobin E9x-zqgt is below 7% to attenuate chronic kidney [...] I advised the patient to go to [facility] emergency room Nov, Pure hypercholestero lemia (ICD-10 - E78.00) LDL goal in chronic kidney disease patient is less than 100 to reduce the risk of cardiovascular disease. Patient is working with his PCP/hoop machine operator for this purpose on statin. [facility] Other 10-22-2021 NoteMR#: [id number] I [facility] Pt. Name: Andry Pierre Admitted: 07/21/2021 [...] Russ MD Date Trans: 07/27/2021 09:41 A/michaela [id number] cc: Say Mccormick M.D. [address] [facility] [address] Chief Complaint Consultation for [...] hematuria Head injury Heart disease History of longterm anticoagulant use History of stroke Hyperlipidemia Hypertension [...] tablet, extended release oxybutynin (more content not included)...[facility] Comment: Electronically Signed By: [...] Chronic obstructive pulmonary disease, unspecified COPD type (HCC) Tobacco use Tobacco use disorder Tracheal stenosis [...] forms of tremor documented in this encounter [facility] note* Diagnosis 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 Essential tremor Essential and other specified forms of tremor documented in this encounter [facility] note* Diagnosis Essential tremor- Primary Essential and other specified forms of tremor Essential tremor Essential and other specified forms of tremor documented in this encounter [facility] noteNo [employer] Other Evaluation note* Diagnosis Diabetic polyneuropathy associated with type 2 diabetes mellitus ([facility]) [E11.42]- Primary Weakness Other malaise and fatigue Obesity, Class III, BMI 40-49.9 (morbid obesity) ([facility]) Morbid obesity documented in this encounter [facility] note* Diagnosis AMS (altered mental status)- Primary [...] peripheral neuropathy ([facility]) Type [...] unspecified site documented in this encounter [facility] general Narrative - Reported* Type Description Date [...] Hospitalization History CELLULITUS Hospitalization History HEART FAILURE [facility] Other Summary Purpose Family History No Family [...] FoundDocuments on File Type Date Recorded 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 Advance Directive(s) Advance Directive(s) 01/05/2020 5:50 AM Advance Directive(s) 06/24/2019 10:59 AM Advance Directive(s) 06/24/2019 2:04 PM Advance Directive(s) 06/24/2019 2:00 PM Advance Directive(s) 06/18/2019 12:37 PM Advance Directive(s) 07/18/2016 2:43 PM Documents on File Type Date Recorded 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 anation Advance Directive(s) 06/24/2019 2:00 PM [...] content) DATE CREATED AUTHOR 06/01/2021 Fidencio Suárez [facility] DATE CREATED AUTHOR AUTHOR'S ORGANIZ ATION 10/30/2021 [facility] DATE CREATED AUTHOR AUTHOR'S ORGANIZ ATION 05/31/2022 [facility] DATE CREATED AUTHOR AUTHOR'S ORGANIZ ATION 03/14/2023 [facility] DATE CREATED AUTHOR AUTHOR'S ORGANIZ ATION 08/14/2023 [facility] DATE CREATED AUTHOR AUTHOR'S ORGANIZ ATION 10/19/2023 [facility] DATE CREATED AUTHOR AUTHOR'S ORGANIZ ATION 11/10/2023 [facility] DATE CREATED AUTHOR AUTHOR'S ORGANIZ ATION 12/05/2023 [facility] DATE CREATED AUTHOR AUTHOR'S ORGANIZ ATION 12/06/2023 [facility] DATE CREATED AUTHOR AUTHOR'S ORGANIZ ATION 12/14/2023 [facility] DATE CREATED AUTHOR AUTHOR'S ORGANIZ ATION 03/24/2024 [facility] DATE CREATED AUTHOR AUTHOR'S ORGANIZ ATION 06/23/2024 [facility] DATE CREATED AUTHOR AUTHOR'S ORGANIZ ATION 07/15/2024 [facility] Source Comments (unrecognize d section and content) In the event this informatio n is protected by the Federal Confidentiality of Alcohol and Drug Abuse Patient Records regulations: The Federal rules restrict any use of the information to criminally investigate or prosecute any alcohol or drug abuse patient.[facility] the event this information is protected by the Federal Confidentiality of Alcohol and Drug Abuse Patient Records regulations: The Federal rules restrict any use of the information to criminally investigate or prosecute any alcohol or drug abuse patient.[facility] the event this information is protected by the Federal Confidentiality of Alcohol and Drug Abuse Patient Records regulations: The Federal rules restrict any use of the information to criminally investigate or prosecute any alcohol or drug abuse patient.[facility] the event this information is protected by the Federal Confidentiality of Alcohol and Drug Abuse Patient Records regulations: The Federal rules restrict any use of the information to criminally investigate or prosecute any alcohol or drug abuse patient.[facility] the event this information is protected by the Federal Confidentiality of Alcohol and Drug Abuse Patient Records regulations: The Federal rules restrict any use of the information to criminally investigate or prosecute any alcohol or drug abuse patient.[facility] the event this information is protected by the Federal Confidentiality of Alcohol and Drug Abuse Patient Records regulations: The Federal rules restrict any use of the information to criminally investigate or prosecute any alcohol or drug abuse patient.[facility] the event this information is protected by the Federal Confidentiality of Alcohol and Drug Abuse Patient Records regulations: The Federal rules restrict any use of the information to criminally investigate or prosecute any alcohol or drug abuse patient.[facility] the event this information is protected by the Federal Confidentiality of Alcohol and Drug Abuse Patient Records regulations: The Federal rules restrict any use of the information to criminally investigate or prosecute any alcohol or drug abuse patient.[facility] the event this information is protected by the Federal Confidentiality of Alcohol and Drug Abuse Patient Records regulations: The Federal rules restrict any use of the information to criminally investigate or prosecute any alcohol or drug abuse patient.[facility] Reason for Visit (unrecogniz ed section and content) Reason Comments DBS MARIA G message Reason Comments Pre-Op Visit Reason Comments Results Reason Comments DBS problem Reason Comments New Patient Consult Specialty Diagnoses / Procedures Referred By Contac t Referred To Contact Neurology Diagnoses Weakness Procedures CONSULT TO NEUROLOGY OFFICE/OUTPATIENT NEW HIGH MDM 60-74 MINUTES Shane Parham, OLAYINKA [address] [place] [address] Referral ID Status Reason Start Date Expiration Date V isits Requested Visits Authorized [id number] Closed PCP Requested Referral 09/19/2023 09/18/2024 1 1 Specialty Diagnoses / Procedures Referred By Contac t Referred To Contact Diagnoses Syncope and collapse Procedures Tilt table Diogenes Rodriguez MD [address] [place] [address] Referral ID Status Reason Start Date Expiration Date V isits Requested Visits Authorized [id number] Authorized 11/04/2023 11/03/2024 1 1 Specialty Diagnoses / Procedures Referred By Contac t Referred To Contact Diagnoses AMS (altered mental status) Altered mental status altered mental status [facility] 1c Stepdown [address] [place] [address] [facility] [address] [place] [address] Referral ID Status Reason Start Date Expiration Date Visits Re quested Visits Authorized [id number] 1 1 Care Teams (unrecognized sec tion and content) Trust Clerk Relationship Specialty Start Date End Date Say Mccormick MD PCP - General Family Practice 07/15/16 Trust Clerk Relationship Specialty Start Date End Date Say Mccormick MD [address] [place] [address] PCP - General Family Practice 07/15/16 Saúl Lunsford MD [address] [place] [id number] Cardiology 01/21/22 Trust Clerk Relationship Specialty Start Date End Date Say Mccormick MD [address] [facility] [address] PCP - General Family Practice 07/15/16 Saúl Lunsford MD [address] [place] [address] Cardiology 01/21/22 Trust Clerk Relationship Specialty Start Date End Date Say Mccormick MD [address] [facility] [address] PCP - General Family Practice 07/15/16 Saúl Lunsford MD [address] [place] [address] Cardiology 01/21/22 Trust Clerk Relationship Specialty Start Date End Date Say Mccormick MD [address] [facility] [address] PCP - General Family Practice 07/15/16 Saúl Lunsford MD [address] [place] [address] Cardiology 01/21/22 Trust Clerk Relationship Specialty Start Date End Date Say Mccormick MD PCP - General Family Medicine 07/15/16 Saúl Lunsford MD [address] [place] [address] Cardiology 01/21/22 Trust Clerk Relationship Specialty Start Date End Date Say Mccormick MD PCP - General Family Medicine 07/15/16 Saúl Lunsford MD [address] [place] [address] Cardiology 01/21/22 Trust Clerk Relationship Specialty Start Date End Date Say Mccormick MD PCP - General Family Medicine 07/15/16 Saúl Lunsford MD [address] [place] [address] Cardiology 01/21/22 Trust Clerk Relationship Specialty Start Date End Date Say Mccormick MD [address] [place] [address] PCP - General Family Medicine 08/11/18 Trust Clerk Relationship Specialty Start Date End Date Say Mccormick MD [address] [place] [address] PCP - General Family Medicine 08/11/18 Ordered Prescriptions (unrec ognized section and content) Prescription Sig Dispensed Refills Start Date End Da rivastigmine (EXELON) 4.6 MG/24HR Place 1 patch [...] dose on 11/30/23 at 2100, Until Discontinued 2003 (Given - Provider: Merissa Rice RN) 2012 (Given - Provider: Merissa Rice RN) 2100 (Due) cloNIDine (CATAPRES) tablet 0.2 mg 0.2 mg, Oral, 2 TIMES DAILY, First dose (after last modification) on Fri12/05/23 at 2100, Until Discontinued 08 (Given - Provider: Rachel Espana RN)2003 (Given - Provider: Merissa Rice RN) 09 (Given - Provider: Rachel Espana RN)2012 (Given - Provider: Merissa Rice, RN) 09 (Given - Provider: Janneth Nelson RN)2100 (Due) DULoxetine (CYMBALTA) extended release capsule 20 mg 20 mg, Oral, DAILY, First dose on Fri12/03/23 at 1445, Until Discontinued, Do not crush or break. May add contents of capsule to apple juice or apple sauce, but not chocolate. 08 (Given - Provider: Rachel Espana RN) 09 (Given - Provider: Rachel Espana RN) 09 (Given - Provider: Janneth Nelson RN) insulin glargine (LANTUS) injection vial 2 Units 2 Units, SubCUTAneous, DAILY, First dose on Fri12/01/23 at 1330, Until Discontinued 805 (Given - Provider: Rachel Espana RN) 0934 [...] Merissa Rice, NABEEL) 0942 (Given - Provider: Rahcel Espana RN)2012 (Given - Provider: Merissa Rice, RN) 0956 (Given - Provider: Janneth Nelson RN)2100 (Due) topiramate (TOPAMAX) tablet 100 mg 100 mg, Oral, 2 TIMES DAILY, First dose on 11/30/23 at 0230, Until Discontinued, It is not recommended to crush, break, or chew immediate release tablets due to bitter taste. 0748 (Given - Provider: Rachel Espana RN)2003 (Given - Provider: Merissa Rice, RN) 0934 (Given - Provider: Rachel Espana, NABEEL)2012 (Given - Provider: Merissa Rice, RN) 0906 (Given - Provider: Janneth Nelson RN)2100 (Due) valsartan (DIOVAN) tablet 160 mg 160 mg, Oral, DAILY, First dose (after last modification) on 12/01/23 at 0900, Until Discontinued, Substituted for Candesartan (ATACAND) 0748 (Given - Provider: Rachel Espana RN) 0933 (Given - Provider: Rachel Espana RN) 0906 (Given - Provider: Janneth Nelson, NABEEL) Vitamin D (CHOLECALCIFEROL) tablet 5,000 Units 5,000 Units, Oral, DAILY, First dose on 11/30/23 at 0900, Until Discontinued, Labeling may look different. 25 fsh=9268 Units. Please double check dosages. 0748 (Given [...] Hazardous med- See facility policy for handling/disposal 8662 (Given - Provider: Rachel Espana RN) warfarin [...] interruptions/ long duration, Starting on 11/29/23 at 2012, For piggyback infusion, administer at same rate [...] Rectal, EVERY 6 HOURS PRN, Starting on Fri11/29/23 [...] NABEEL) 0538 (Given - Provider: Merissa Rice, NABEEL)2013 (Given - Provider: Merissa Rice, NABEEL) 0535 (Given - Provider: Merissa Rice, NABEEL)1456 (Given - Provider: Janneth Nelson, NABEEL) dextrose 10 % infusion IntraVENous, at 100 [...] patient NOT ALERT or NPO, Starting on Fri11/30/23 at 1348, Repeat blood glucose in 15 [...] mg 1 mg, SubCUTAneous, PRN, Starting on [place] 11/30/23 at 1348, Until Discontinued, Low blood [...] Hours, PRN, Other, Magnesium Replacement, Starting on [facility] 11/29/23 at 2012, Mag Lab Replacement Action [...] Rachel Espana RN)1544 (Given - Provider: Rachel Espana, NABEEL)2005 (Given - Provider: Merissa Rice RN) 0032 (Given - Provider: Merissa Rice RN)0443 (Given - Provider: Merissa Rice RN)0934 (Given - Provider: Rachel Espana, NABEEL) morphine (PF) injection 2 mg (CANCELED) 2 mg, IntraVENous, EVERY 8 HOURS PRN, Starting on 12/07/23 at 0945, Until 12/07/23 at 2028, Pain Severe (7-10), If oral and IV narcotics ordered, use oral first and only use IV if oral is ineffective or cannot take oral. Do Not give oral and IV within 1 hour of each other unless specifically ordered. 182 (Given - Provider: Rachel Espana RN) morphine [...] Merissa Rice RN)1310 (Given - Provider: Janneth Nelson, RN)1917 (Given - Provider: Janneth Nelson, RN) ondansetron (ZOFRAN) injection 4 mg(Linked Group [...] for constipation 933 (Given - Provider: Rachel Espana RN) potassium [...] mEq, IntraVENous, PRN, Starting on 11/29/23 at 2012, Until Discontinued, at 100 mL/hr, Potassium Replacement
[...] BE BASED ON THE PRIMARY CLINICAL RECORDS. [email or web address] [facility]. provides no warranty or guarantee of the accuracy or completeness of information in this document.
[2024-07-26 11:24] LABS: Alanine Aminotransferase 16 U/L (16-63); Anion Gap 11.4; Aspartate Amino Transferase 17 U/L (15-37); BUN Creatinine Ratio 14.4; Carbon Dioxide 29.3 mmol/L (21.0-32.0); Chloride 112 mmol/L (98-107); Chol HDL Ratio 3.1; Cholesterol 124 mg/dL (<=200); Estimated GFR (African America 44 (>=60 mL/min/1.73m^2); Estimated GFR (Non-African Ame 36 (>=60 mL/min/1.73m^2); Glucose 115 mg/dL (74-106); HDL Cholesterol 40 mg/dL (40-60); LDL Cholesterol Calculated 67.6 mg/dL; Potassium 3.7 mmol/L (3.5-5.1); Sodium 149 mmol/L (136-145); Triglycerides 82 mg/dL (<=150); VLDL CHOLESTEROL 16.4 mg/dL
== END 2024-07-26 10:08 | disposition home or self-care (01) ==
LOC: LAB 10:08
PROVIDERS: PCP Family Medicine; Visit Provider Internal Medicine Cardiovascular Disease
DX: I50.33 Acute on chronic diastolic (congestive) heart failure (principal); E78.5 Hyperlipidemia, unspecified
CPT/HCPCS: 36415; 71046; 80048; 80061; 83880; 84450; 84460

== ENCOUNTER 2024-08-05 08:04 | Outpatient (OUT) | payer MEDICARE, MEDICAID, SELFPAY ==
--- OUTSIDE RECORDS SUMMARY | 2024-08-05 08:14 | XMS_ITS | CCD ---
Author Organization [facility] ion [facility] Care Team Providers Care Centrifuge Separator Tender Name Role Phone Say Mccormick MD Primary Care Provider [phone] Say Mccormick MD Primary Care Provider [phone] Jonn GEORGE, ab Kovacs Unavailable Sanjay Dooley Unavailable JESUS RUSS Attending Unavailable JESUS RUSS Admitting Unavailable SELF, REFERRED Referring Unavailable SAY MCCORMICK Primary Care Unavailable AMY REMY Surgeon Unavailable [place] Procedure Practitioner Unavailab le [place] Procedure Practitioner Unavailab DAVON Rivera Surgeon Unavailable [...] Care Provider Jonn GEORGE, Saúl Kovacs Unavailable Marlena GEORGE, [...] SAY M Primary Care Unavailable HENSHANE GONZALEZ L Referring Unavailable HOY, SAY M Primary Care Unavailable HENSHANE GONZALEZ L Attending Unavailable Say Mccormick MD Primary Care Provider [phone] YUDITH MARTINEZ Referring Unavailable HOY, SAY M [...] Unavailable HOY, SAY M Primary Care Unavailable Say Mccormick MD Primary Care Provider [phone] YANCY CERVANTES Attending Unavailab le HOY, SAY M Referring Unavailable NATALIAIANYANCY Vargas Referring Unavailab YANCY Dimas Referring Unavailab YOSSI Palumbo Attending Unavailable YANCY CERVANTES Attending Unavailab YANCY Dimas Attending Unavailab YOSSI Palumbo Attending Unavailable YOSSI BOWER Attending Unavailable YOSSI BOWER Attending Unavailable LEN CRESPO Attending Unavailable DIOGENES RODRIGUEZ Referring Unavailable SOFYA HIDALGO Attending Unavailable DIOGENES RODRIGUEZ Referring Unavailable DIOGENES RODRIGUEZ Attending Unavailable LAURA ROSADO Attending Unavailable DIOGENES RODRIGUEZ Referring Unavailable TIFFANIE LEIGH Referring Unavailable DIOGENES RODRIGUEZ Referring Unavailable DIOGENES RODRIGUEZ Referring Unavailable DIOGENES RODRIGUEZ Referring Unavailable SURI BANDA Attending Unavailable DIOGENES RODRIGUEZ Attending Unavailable SOFYA HIDALGO Attending Unavailable TIFFANIE LEIGH Referring Unavailable LEN CRESPO Attending Unavailable Allergies Allergy Classification Reported Allergen(s) Allergy Type Date of Onset Reaction(s) Facility (13 sources) beta-Blocking agent; Translations: [BETA-BLOCKERS (BETA-ADRENERGIC BLOCKING AGTS)] Drug Allergy 07-24-20 11 Itching, Other: See Comments [facility] (16 sources) diazePAM; Translations: [DIAZEPAM] Drug Allergy 03-03-20 08 Unknown [facility] (20 sources) gabapentin; Translations: [GABAPENTIN] Drug Allergy 11-25-19 09 Other: See Comments, Unknown, Other [facility] (18 sources) hydrALAZINE; Translations: [HYDRALAZINE] Drug Allergy 05-19-20 13 Unknown [facility] (3 sources) Adrenergic Beta-Antagonists Drug allergy Unknown [facility] Other (2 sources) Adrenergic Beta-Antagonists Drug allergy (disorder) 05-29-20 16 [facility] (4 sources) diazePAM Drug Allergy 05-19-20 13 [facility] (1 source) gabapentin Drug Allergy 01-23-20 19 [facility] (1 source) gabapentin Drug Allergy 05-29-20 16 [facility] (5 sources) beta-Blocking agent Drug Allergy 07-24-20 11 Itching, Other: See Comments [facility] (2 sources) Neuromuscular Blocking Agents Propensity to adverse reactions to drug 05-19-20 13 [facility] (3 sources) Diazepam Allergy to substance 03-03-20 08 Other, Unknown [facility] NEGATED: Highlighted row has been ruled out! (2 sources) Other Propensity to adverse reactions 07-29-20 13 Nausea And Vomiting [facility] Medications Current Medications Medication Drug Class(es) Dates Sig (Normalized) Sig (Original) Acetaminophen (1 source) Start: 11-29-2023 acetaminophen (TYLENOL) tablet 650 mg amitriptyline hydrochloride 25 mg oral tablet (3 sources) Tricyclic Antidepressant Start: 12-31-2023 take 1 tablet by mouth at bedtime amitriptyline (Elavil) 25 MG tablet Take 25 mg by mouth at bedtime 12/31/2023 Active amLODIPine 5 mg oral tablet (2 sources) Dihydropyridine Calcium Channel Noah End: 01-21-2022 take 1 tablet by mouth once daily amLODIPine (NORVASC) 5 mg tablet Take 5 mg by mouth once daily. 0 01/21/2022 Discontinued Comment on above: Take 5 mg by mouth o nce daily. apixaban 5 mg oral tablet (3 sources) Factor Xa Inhibitor Start: 02-12-2024 take 1 tablet by mouth in the morning Eliquis 5 MG tablet Take 5 mg by mouth in the morning and 5 mg before bedtime. 02/12/2024 Active aspirin 81 mg oral tablet (3 sources) Platelet Aggregation Inhibitor, Nonsteroidal Anti-inflammatory Drug take 1 tablet by mouth once daily Aspirin 81 81 MG 1 tablet Orally Once a day Active baclofen 10 mg oral tablet (3 sources) gamma-Aminobutyric Acid-ergic Agonist take 1 tablet by mouth in the morning, then take 1 tablet by mouth in the evening, then take 1 tablet by mouth at bedtime baclofen (Lioresal) 10 MG tablet Take 10 mg by mouth in the morning and 10 mg in the evening and 10 mg before bedtime. Active Blood Glucose Monitoring Suppl (Accu-Chek Guide Me) w/Device kit (3 sources) Start: 02-21-2023 Blood Glucose Monitoring Suppl (Accu-Chek Guide Me) w/Device kit USE DIRECTED DAILY 02/21/2023 Active candesartan cilexetil 8 mg oral tablet (17 sources) Angiotensin 2 Receptor Noah take 1 tablet by mouth once daily candesartan (Atacand) 8 MG tablet Take 8 mg by mouth Daily Active Comment on above: Take 8 mg by mouth o nce daily. cetirizine hydrochloride 10 mg oral tablet (9 sources) Histamine-1 Receptor Antagonist Start: 04-01-2023 take 1 tablet by mouth once daily cetirizine (ZyrTEC) 10 MG tablet Take 1 tablet by mouth Daily 04/01/2023 Active Comment on above: Take 1 tablet by kristen th once daily. cholecalciferol 0.025 mg oral tablet (3 sources) Vitamin D Start: 11-30-2023 Vitamin D (CHOLECALCIFEROL) tablet 5,000 Units End: 12-02-2023 take 1 capsule by mouth once daily Cholecalciferol (VITAMIN D3) 50 MCG (1999 UT) CAPS Take 1 capsule by mouth daily 0 12/02/2023 Discontinued (LIST CLEANUP) cloNIDine hydrochloride 0.1 mg oral tablet (20 sources) Central alpha-2 Adrenergic Agonist Start: 01-12-2024 take 0.05 mg by mouth in the morning cloNIDine (Catapres) 0.1 MG tablet Take 0.05 mg by mouth in the morning and 0.05 mg before bedtime. 01/12/2024 Active Start: 12-05-2023 cloNIDine (CAT APRES) tablet 0.2 mg Start: 12-02-2023 End: 12-05-2023 [...] oral tablet (1 source) Muscle Relaxant Start: cyclobenzaprine (FLEXERIL) tablet 10 mg DULoxetine 20 mg delayed release oral capsule (2 sources) Serotonin and Norepinephrine Reuptake Inhibitor Start: take 1 capsule by mouth once daily DULoxetine (CYMBALTA) 20 MG extended release capsule Take 1 capsule by mouth daily 30 capsule 3 12/05/2023 Active empagliflozin 25 mg oral tablet (6 sources) Sodium-Glucose Cotransporter 2 Inhibitor Start: take 25 mg by mouth once daily Jardiance 25 MG Take 25 mg by mouth Daily 11/27/2023 Active Start: 03-05-2023 End: 12-02-2023 take 1 tablet by mouth once JARDIANCE 10 mg tablet Guille e 1 tablet by mouth every afternoon. 0 08/28/2023 Active Comment on above: Take 1 tablet by kristen th every afternoon. glucagon (rdna) 1 mg injection (1 source) Antihypoglycemic Agent Start: 11-30-2023 glucagon (rDNA) injection 1 mg 1000 ml glucose 100 mg/ml injection (4 sources) Start: 11-30-2023 dextrose 10 % infusion Start: 11-30-2023 dextrose bolus 10% 125 mL Start: 11-30-2023 glucose chewab le tablet 16 g Start: 11-30-2023 End: 11-30-2023 dextrose 50 % IV solution 400 ml immunoglobulin g, human 100 mg/ml injection (3 sources) Human Immunoglobulin G Start: 02-27-2024 Gamunex -C 40 GM/400ML solution 02/27/2024 Active 3 ml insulin degludec 100 unt/ml pen injector (6 sources) Insulin Analog Start: 11-05-2023 Tresiba FlexTo uch 100 UNIT/ML injection Inject 60 Units under the skin 11/05/2023 Active Start: 11-05-2023 TRESIBA FLEXTO UCH U-100 100 unit/mL (3 mL) injection pen Insulin Degludec (TRESIBA FLEXTOUCH) 200 UNIT/ML SOPN Inject 60 Units into the skin in the morning and at bedtime 0 Active Insulin Degludec (TRESIBA FLEXTOUCH) 200 UNIT/ML SOPN Inject 40 Units into the skin in the morning and at bedtime 0 Active insulin glargine 100 unt/ml injectable solution (1 source) Insulin Analog Start: 12-01-2023 insulin glargine (LANTUS) injection vial 2 Units insulin lispro 100 unt/ml injectable solution (2 sources) Insulin Analog Start: 11-30-2023 insulin lispro (HUMALOG) injection vial 0-4 Units labetalol hydrochloride 5 mg/ml injectable solution (1 source) beta-Adrenergic Noah Start: 11-30-2023 labetalol (NORMODYNE;TRAND ATE) injection 10 mg LEVEMIR FLEXTOUCH 100 UNIT/ ML (3 sources) LEVEMIR FLEXTOUCH 100 UNIT/ ML as directed Subcutaneous 35 UNITS TWICE A DAY Active lidocaine 0.05 mg/mg medicated patch (3 sources) Antiarrhythmic, Amide Local Anesthetic Start: 10-27-2022 apply 1 dose transdermal route every twenty-four hours lidocaine (LIDODERM) 5 % Place 1 patch onto the skin every 24 hours 0 10/27/2022 Active Comment on above: Apply 1 Patch as dir ected every 24 hours. linaclotide 0.145 mg oral capsule (3 sources) Guanylate Cyclase-C Agonist take 1 capsule by mouth before mealtime Linzess 145 MCG capsule Take 145 mcg by mouth in the morning. Take before meals. Active 50 ml magnesium sulfate 40 mg/ml injection (1 source) Start: 11-29-2023 2,000 mg, IntraVENous, at 25 mL/hr, Administer over 2 Hours, PRN, Other, Magnesium Replacement, Starting on 11/29/23 at 2011 [facility] Replacement Action 1.4- 1.6 mg/dL &nbsp ; &nbsp ; 2,000 mg Total Dose Given as 1,000 mg IVPB x 2 doses or 2,000 mg IVPB x 1 dose &nbs p; &n bsp; &nbs p; &n bsp; &n bsp;1.0-1.3 mg/dL &nbsp ; 4,000 mg Total Dose &nbs p; &n bsp; &nbs p; Given as 1,000 mg IVPB x 4 doses or 2,000 mg IVPB x 2 doses &nbsp ;Less than 1.0 mg/dL &nbsp ; CALL PHYSICIAN and give &nbs p; &n bsp; &nbs p; &n bsp; 4,000 mg Total Dose &nbs p; &n bsp; &nbs p; &n bsp; Given as 1,000 mg IVPB x 4 doses or 2,000 mg IVPB x 2 doses &nbsp ; Infuse at 1,000 mg/hr Repea t Mag level next AM Protocol not for use in Patients with CrCl less than 30ml/min metFORMIN hydrochloride 500 mg oral tablet (7 sources) Biguanide Start: 04-01-2023 End: 12-02-2023 take 1 tablet by mouth in the morning metFORMIN (Glucophage) 500 MG tablet Take 1 tablet by mouth in the morning and 1 tablet before bedtime. 04/01/2023 Active Comment on above: Take 1 tablet by kristen two times a day. metoprolol tartrate 50 mg oral tablet (3 sources) beta-Adrenergic Noah Start: 12-25-2023 take 1 tablet by mouth once daily metoprolol tartrate (Lopressor) 50 MG tablet Take 50 mg by mouth 1 (one) time each day 12/25/2023 Active 1 ml morphine sulfate 2 mg/ml cartridge [...] days. Apply to each nostril via Q-tip naloxone hydrochloride 40 mg/ml nasal spray (3 sources) Opioid Antagonist Start: 01-12-2024 naloxone (Narcan) 4 mg/0.1 mL nasal spray PLEASE SEE ATTACHED FOR DETAILED DIRECTIONS 01/12/2024 Active NIFEdipine 90 mg osmotic 24 hr extended release oral tablet (18 sources) Dihydropyridine Calcium Channel Noah Start: 01-13-2022 take 1 tablet by mouth once daily NIFEdipine XL (Procardia XL) 90 MG 24 hr tablet Take 1 tablet by mouth Daily 05/16/2023 Active take 1 tablet by kristen th every twenty-four hours NIFEdipine ER 90 MG 1 tablet on an empty stomach Orally Once a day Active Comment on above: nifedipine ER 90 mg tablet,extended release 24 hr take 1 tablet by mouth once daily ondansetron 4 mg disintegrating oral tablet (3 sources) Serotonin-3 Receptor Antagonist Start: take 1 tablet by mouth every eight hours as needed for nausea ondansetron ODT (Zofran-ODT) 4 MG disintegrating tablet Take 4 mg by mouth every 8 (eight) hours if needed for nausea 03/23/2024 Active ondansetron (ZOFRAN-ODT) disintegrating tablet 4 mg (1 source) Start: ondansetron (ZOFRAN-ODT) disintegrating tablet 4 mg OXcarbazepine 150 mg oral tablet (5 sources) Anti-epileptic Agent Start: End: take 0.5 tablet by mouth in the morning, then take 0.5 tablet by mouth in the evening, then take 0.5 tablet by mouth at bedtime OXcarbazepine (Trileptal) 150 MG tablet Indications: CIDP (chronic inflammatory demyelinating polyneuropathy) (CMS/HCC) , 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 oxyCODONE hydrochloride 10 mg oral tablet (3 sources) Opioid Agonist Start: 02-26-2024 take 1 tablet by mouth every four hours as needed oxyCODONE (Roxicodone) 10 MG immediate release tablet TAKE 1 TO 2 TABLETS BY MOUTH EVERY 4 HOURS NEEDED FOR PAIN 02/26/2024 Active Potassium Chloride (18 sources) Start: 11-29-2023 potassium chloride (KLOR-CON M) [...] mouth once daily for 4 days topiramate 200 mg oral tablet (18 sources) Start: 01-07-2024 End: 01-06-2025 take 1 tablet by mouth in the morning topiramate (Topamax) 200 MG tablet Indications: Intention tremor Take 1 tablet (200 mg) by mouth in the morning and 1 tablet (200 mg) before bedtime. 180 tablet 3 01/07/2024 01/06/2025 Active Start: 11-30-2023 take 1 tablet by kristen twice daily 100 mg, Oral, 2 TIMES DAILY, First dose on 11/30/23 at 0230, Until Discontinued It is not recommended to crush, break, or chew immediate release tablets due to bitter taste. Start: 08-15-2015 take 2 tablets by mo [facility] twice daily, then take 2 tablets by mouth twice daily topiramate (TOPAMAX) 50 MG tablet Indications: Medication refill Take 2 tablets by mouth 2 times daily take 2 tablets by mouth twice a day 120 tablet 3 08/15/2015 Active Comment on above: Take 100 mg by mouth twice daily. 7 actuat umeclidinium 0.0625 mg/actuat dry powder inhaler (10 sources) Anticholinergic Start: 11-05-2023 Incruse Ellipta 62.5 MCG/ACT aerosol powder 11/05/2023 Active Start: 11-05-2023 INCRUSE ELLIPT A 62.5 mcg/actuation inhaler take 1 puff(s) by in halation once daily umeclidinium (INCRUSE ELLIPTA) 62.5 mcg/actuation inhaler Inhale 1 Puff as instructed once daily. 0 Active Comment on above: Inhale 1 Puff as ins tructed once daily. valsartan 160 mg oral tablet (3 sources) [...] 0 Active take 2 tablets by mo [facility] once daily Warfarin 5mg 5 mg [...] by mouth. atorvastatin 40 mg oral tablet (18 sources) HMG-CoA Reductase Inhibitor Start: 11-08-19 20 take 1 tablet by mouth once daily atorvastatin (LIPITOR) 10 mg tablet Take 1 tablet by mouth once daily. 90 tablet 1 11/08/2019 Active Start: 09-26-2015 take 40 mg by mouth once daily 40 mg, Oral, DAILY, First dose on 11/30/23 at 2100, Until Discontinued Comment on above: [facility] carbidopa 10 mg / levodopa 100 mg oral tablet (6 sources) Aromatic Amino Acid Decarboxylation Inhibitor, Aromatic Amino Acid carbidopa-levodopa (SINEMET 10-100) 10-100 mg per tablet carbidopa 10 mg-levodopa 100 mg tablet 0 Active Comment on above: carbidopa 10 mg-levo dopa 100 mg tablet cephalexin 500 mg oral capsule (3 sources) Cephalosporin Antibacterial Start: take 1 capsule by mouth four times daily cephALEXin (KEFLEX) 500 mg capsule Take 1 capsule by mouth four times daily. 8 capsule 0 01/30/2022 Active Comment on above: Take 1 capsule by mo [facility] four times daily. 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 Take with meals. Do all this for 10 days. 20 tablet 1 06/21/2024 07/30/2024 Discontinued furosemide 40 mg oral tablet (17 sources) Loop Diuretic Start: End: take 1 tablet by mouth twice daily furosemide (LASIX) 40 MG tablet TAKE 1 TABLET BY MOUTH TWICE A DAY 0 11/24/2021 12/02/2023 Discontinued (LIST CLEANUP) Comment on above: Take 1 tablet by kristen twice daily. 250 ml glucose 50 mg/ml / sodium chloride 4.5 mg/ml injection (1 source) Start: End: dextrose 5 % and 0.45 % sodium chloride infusion hyoscyamine sulfate 0.125 mg sublingual tablet (3 sources) take 1 tablet under the tongue four times daily as needed Hyoscyamine Sulfate SL 0.125 MG 1 tablet under the tongue and allow to dissolve as needed Sublingual FOUR TIMES A DAY PRN Not-Taking indomethacin 50 mg oral capsule (12 sources) Nonsteroidal Anti-inflammatory Drug Start: End: take 1 capsule by mouth three times daily as needed for pain indomethacin (INDOCIN) 50 MG capsule TAKE 1 CAPSULE BY MOUTH THREE TIMES A DAY NEEDED FOR PAIN WITH FOOD OR MILK for 30 0 05/12/2023 12/02/2023 Discontinued (LIST CLEANUP) Comment on above: indomethacin 50 mg c apsule take 1 capsule by mouth three times a day if needed for pain TAKE 1 CAPSULE BY MO [facility] THREE TIMES A DAY NEEDED FOR PAIN WITH FOOD OR MILK 30 3 ml insulin detemir 100 unt/ml pen [...] PRN Not-Taking montelukast 10 mg oral tablet (18 sources) Leukotriene Receptor Antagonist Start: take 10 mg by mouth once daily 10 mg, Oral, DAILY, First dose on 11/30/23 at 0900, Until Discontinued Comment on above: Take 10 mg by mouth daily at bedtime. pantoprazole 40 mg delayed release oral tablet (18 sources) Proton Pump Inhibitor Start: take 40 mg by mouth once daily 40 mg, Oral, DAILY, First dose on 11/30/23 at 0900, Until Discontinued Do not crush or break. Comment on above: Take 40 mg by mouth once daily. polyethylene glycol 3350 [id number] mg powder for oral solution (1 source) Osmotic Laxative Start: 17 g, Oral, DAILY PRN, Starting on [...] HandiHa ler 18 mcg and inhalation capsules traMADol hydrochloride 50 mg oral tablet (14 [...] 2 tablets by mouth twice a day Problems Active Problems Problem Classification Problem Date Documented Da te Episodic/Chronic Abdominal hernia (2 sources) Unspecified abdominal hernia without obstruction or gangrene; Translations: [Hernia of unspecified site without mention of obstruction or gangrene] 12-01-2014 Episodic Acquired foot deformities (4 sources) Bilateral foot drop; Translations: [Foot drop, right foot] Onset: 4 07-30-2024 Episodic Acute cerebrovascular disease (11 sources) Stroke of uncertain pathology; Translations: [Embolic stroke] Onset: 8 01-22-2024 Chronic Anxiety disorders (3 sources) Anxiety state; Translations: [Generalized anxiety disorder] Onset: 3 01-22-2024 Chronic Asthma (5 sources) Asthma; Translations: [Unspecified asthma, uncomplicated] Onset: 2 12-01-2014 Chronic Cardiac and circulatory congenital anomalies (5 sources) Congenital heart disease; Translations: [Congenital malformation of heart, unspecified] Onset: 2 12-01-2014 Chronic Cardiac dysrhythmias (2 sources) Palpitations; Translations: [Palpitations] Onset: 4 Episodic Chronic kidney disease (20 sources) Chronic kidney disease stage 3; Translations: [Stage 3 chronic kidney disease, unspecified whether stage 3a or 3b CKD (HCC)] Onset: 4 Chronic Chronic kidney disease (5 sources) Chronic kidney disease; Translations: [Chronic kidney disease, stage 3 unspecified] Onset: 2 Resolved: 2 Chronic obstructive pulmonary disease and bronchiectasis (16 sources) Chronic obstructive lung disease; Translations: [Chronic obstructive pulmonary disease, unspecified] Onset: 4 Chronic Congestive heart failure; nonhypertensive (20 sources) Congestive heart failure; Translations: [Heart failure, unspecified] Onset: 9 Chronic Diabetes mellitus with complications (20 sources) Type 2 diabetes mellitus; Translations: [Type 2 diabetes mellitus with other specified complication] Onset: 4 Resolved: 2 Chronic Diabetes mellitus without complication (17 sources) Diabetes mellitus; Translations: [Type 2 diabetes mellitus without complications] Onset: 0 11-25-2008 Chronic Disorders of lipid metabolism (12 sources) Pure hypercholesterolemia; Translations: [Pure hypercholesterolemia, unspecified] Onset: 2 Resolved: 2 Chronic Esophageal disorders (16 sources) Gastroesophageal reflux disease; Translations: [Gastro-esophageal reflux disease without esophagitis] Onset: 2 11-25-2008 Chronic Essential hypertension (20 sources) Essential hypertension; Translations: [Essential (primary) hypertension] Onset: 4 Resolved: 2 07-18-2016 Chronic Genitourinary symptoms and ill-defined conditions (3 sources) Urge incontinence of urine; Translations: [Urge incontinence] Onset: 9 01-22-2024 Chronic Gout and other crystal arthropathies (5 sources) Gout; Translations: [Gout, unspecified] Onset: 3 12-01-2014 Chronic Hypertension with complications and secondary hypertension (6 sources) Hypertensive chronic kidney disease with stage 1 through stage 4 chronic kidney disease, or unspecified chronic kidney disease; Translations: [HTN CKD W/STAGE 1-4 CKD/UNS CKD] Onset: 2 Chronic Mood disorders (20 sources) Recurrent major depression in partial remission; Translations: [Major depressive disorder, recurrent, in partial remission] Onset: 0 11-16-2019 Chronic Nonspecific chest pain (3 sources) Chest pain, unspecified; Translations: [Other chest pain] Onset: 2 Episodic Nutritional deficiencies (1 source) Vitamin D deficiency, unspecified; Translations: [Vitamin D deficiency, unspecified] Onset: 4 Chronic Osteoarthritis (10 sources) Bilateral osteoarthritis of knees; Translations: [Bilateral primary osteoarthritis of knee] Onset: 4 08-18-2014 Chronic Other acquired deformities (3 sources) Equinus contracture of the ankle; Translations: [Contracture, right ankle] Onset: 4 01-22-2024 Chronic Other acquired deformities (2 sources) Spondylolysis, lumbar region; Translations: [Spondylolysis, lumbar region] Onset: 4 Episodic Other aftercare (5 sources) Encounter for therapeutic drug level monitoring; Translations: [ENC THERAPEUTC DRUG LEVL MONITORING] Onset: 3 Episodic Other aftercare (1 source) intermediate manager (current) use of anticoagulants; Translations: [[facility] USE ANTICOAGULANTS] Onset: 3 Episodic Other aftercare (1 source) intermediate manager (current) use of insulin; Translations: [[facility] (current) use of insulin] Onset: 4 Episodic Other and ill-defined cerebrovascular disease (13 sources) Cerebrovascular disease; Translations: [Other cerebrovascular disease] Onset: 2 11-25-2008 Chronic Other and ill-defined heart disease (3 sources) Diastolic dysfunction; Translations: [Other ill-defined heart diseases] Onset: 0 01-22-2024 Chronic Other circulatory disease (2 sources) Presence [...] Translations: [Facial weakness] Onset: 4 Episodic Other gastrointestinal disorders (5 sources) Irritable bowel syndrome; Translations: [Irritable bowel syndrome without diarrhea] Onset: 4 03-28-2014 Chronic Other hereditary and degenerative nervous system conditions (12 sources) Shuddering attacks; Translations: [Benign shuddering attacks] Onset: 2 11-25-2008 Chronic Other hereditary and degenerative nervous system conditions (5 sources) Essential tremor; Translations: [Essential tremor] Onset: 4 Chronic Other hereditary and degenerative nervous system conditions (3 sources) Intention tremor; Translations: [Other specified forms of tremor] Onset: 4 01-07-2024 Chronic Other nervous system disorders (1 source) Carpal tunnel syndrome, right upper limb; Translations: [Carpal tunnel syndrome, right upper limb] Onset: 4 Chronic Other nervous system disorders (1 source) Lesion of ulnar nerve, right upper limb; Translations: [Lesion of ulnar nerve, right upper limb] Onset: 4 Chronic Other nervous system disorders (5 sources) Patient encounter status; Translations: [Other chronic pain] Onset: 4 01-20-2015 Chronic Other nervous system disorders (1 source) Polyneuropathy, unspecified; Translations: [Polyneuropathy, unspecified] Onset: 4 Chronic Other nervous system disorders (5 sources) Disorder of brain; Translations: [Encephalopathy, unspecified] Onset: 4 12-02-2023 Chronic Other nervous system disorders (2 sources) Neuropathy; Translations: [Polyneuropathy, unspecified] Onset: 4 12-03-2023 Chronic Other nervous system disorders (5 sources) Chronic inflammatory demyelinating polyradiculoneuropathy ; 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] Onset: 4 01-22-2024 Chronic Other nervous system disorders (2 sources) Chronic inflammatory demyelinating polyneuritis; 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] Onset: 4 Chronic Other nervous system disorders (11 sources) Tremor; Translations: [Tremor, unspecified] Onset: 1 07-24-2011 Episodic Other nervous system disorders (1 source) Other abnormalities of gait and mobility; Translations: [Other abnormalities of gait and mobility] Onset: 4 Episodic Other nutritional; endocrine; and metabolic disorders (17 sources) Body mass index 40+ - severely obese; Translations: [Morbid (severe) obesity due to excess calories] Onset: 9 10-09-2018 Chronic Other nutritional; endocrine; and metabolic disorders (9 sources) Morbid obesity; Translations: [Morbid (severe) obesity due to excess calories] Onset: 4 08-18-2014 Chronic Other nutritional; endocrine; and metabolic disorders (2 sources) Obesity; Translations: [Obesity, unspecified] 03-28-2014 Chronic Other upper respiratory disease (5 sources) Tracheostomy present; Translations: [Tracheostomy status] Onset: 1 03-28-2014 Chronic Other upper respiratory disease (9 sources) Other diseases of pharynx; Translations: [Other diseases of pharynx, not elsewhere classified] 11-25-2008 Episodic Parkinson`s disease (15 sources) Parkinson's disease; Translations: [Parkinson's disease] Onset: 5 01-21-2022 Chronic Phlebitis; thrombophlebitis and thromboembolism (14 sources) 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; Translations: [Chronic embolism and thrombosis of unspecified deep veins of proximal lower extremity, bilateral] Onset: 8 08-06-2018 Chronic Residual codes; unclassified (17 sources) Obstructive sleep apnea syndrome; Translations: [Obstructive sleep apnea (adult) (pediatric)] Onset: 4 Chronic Residual codes; unclassified (3 sources) Hypersomnia with sleep apnea; Translations: [Hypersomnia, unspecified] Onset: 3 01-22-2024 Chronic Residual codes; unclassified (2 sources) Hypersomnia, unspecified; Translations: [Hypersomnia, unspecified] Onset: 3 Chronic Residual codes; unclassified (2 sources) Sleep apnea, unspecified; Translations: [Sleep apnea, unspecified] Onset: 3 Chronic Residual codes; unclassified (1 source) Pain, unspecified; Translations: [Pain, unspecified] Onset: 4 Episodic Residual codes; unclassified (1 source) Other amnesia; Translations: [Other amnesia] Onset: 4 Episodic Residual codes; unclassified (3 sources) Altered mental status, unspecified; Translations: [Altered mental status, unspecified] Onset: 4 Episodic Residual codes; unclassified (2 sources) Localized edema; Translations: [Localized edema] Onset: 4 Episodic Spondylosis; intervertebral disc disorders; other back problems (18 sources) Degeneration of lumbar intervertebral disc; Translations: [Other intervertebral disc degeneration, lumbar region] Onset: 4 Resolved: 0 08-18-2014 Chronic Substance-related disorders (6 sources) Cocaine dependence in remission; Translations: [Cocaine dependence, in remission] Onset: 3 01-22-2024 Chronic Unclassified (1 source) LOW BACK PAIN, [...] Date Documented Da te Episodic/Chronic Abdominal pain (7 sources) Unspecified abdominal pain; Translations: [Abdominal pain] Onset: 01-07-2023 Episodic Acute and unspecified renal failure (7 sources) Acute renal failure syndrome; Translations: [Acute kidney failure, unspecified] Onset: 03-15-2014 03-02-2024 Episodic Biliary tract disease (6 sources) Common bile duct calculus; Translations: [Calculus of bile duct without cholangitis or cholecystitis without obstruction] Onset: 01-22-2024 01-22-2024 Episodic Blindness and vision defects (7 sources) Diplopia; Translations: [Disorder of refraction AND/OR accommodation] Onset: 07-17-2023 01-22-2024 Episodic E Codes: Fall (5 sources) Fall; Translations: [Unspecified fall, initial encounter] Onset: 01-13-2024 03-09-2024 Episodic Fluid and electrolyte disorders (17 sources) Hypervolemia; Translations: [Fluid overload, unspecified] Onset: 03-15-2014 10-08-2018 Episodic Genitourinary symptoms and ill-defined conditions (3 sources) Kg hematuria; Translations: [Gross hematuria] Onset: 12-01-2018 01-22-2024 Episodic Immunizations and screening for infectious disease (6 sources) 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; Translations: [Carrier or suspected carrier of Methicillin resistant Staphylococcus aureus] Onset: 07-18-2015 Episodic Malaise and fatigue (11 sources) Other fatigue; Translations: [Asthenia] Onset: 03-15-2014 11-06-2023 Episodic Other aftercare (2 sources) Patient encounter status; Translations: [Encounter for therapeutic drug level monitoring] Onset: 01-25-2014 08-18-2014 Episodic Other aftercare (3 sources) Long-term current use of anticoagulant; Translations: [MCFP (current) use of anticoagulants] Onset: 01-22-2024 01-22-2024 Episodic Other circulatory disease (4 sources) Personal history of transient ischemic attack (TIA), and cerebral infarction without residual deficits; Translations: [PERS HX TIA AND CI NO RESID DEFICIT] Onset: 05-29-2022 Episodic Other connective tissue disease (5 sources) Cramp; Translations: [Cramp and spasm] Onset: 03-15-2014 03-02-2024 Episodic Other connective tissue disease (5 sources) Recurrent falls ; Translations: [Repeated falls] Onset: 11-30-2023 11-30-2023 Episodic Other connective tissue disease (3 sources) Spasm of cervical paraspinous muscle; Translations: [Other muscle spasm] Onset: 03-24-2024 03-24-2024 Episodic Other diseases of kidney and ureters (5 sources) Kidney disease; Translations: [Disorder of kidney and ureter, unspecified] Onset: 01-29-2024 12-01-2014 Episodic Other gastrointestinal disorders (6 sources) Dysphagia; Translations: [Dysphagia, unspecified] Onset: 11-28-2014 11-28-2014 Episodic Other gastrointestinal disorders (3 sources) History of hematemesis; Translations: [Personal history of other diseases of the digestive system] Onset: 01-22-2024 01-22-2024 Episodic Other injuries and conditions due to external causes (3 sources) H/O: head injury; Translations: [Personal history of other (healed) physical injury and trauma] Onset: 01-07-2024 03-24-2024 Episodic Other lower respiratory disease (4 sources) Other forms of dyspnea; Translations: [OTHER FORMS OF DYSPNEA] Onset: 06-24-2022 Episodic Other lower respiratory disease (1 source) Dyspnea, unspecified; Translations: [DYSPNEA UNSPECIFIED] Onset: 05-27-2022 Episodic Other lower respiratory disease (3 sources) Dyspnea; Translations: [Shortness of breath] Onset: 06-28-2022 01-22-2024 Episodic Other nervous system disorders (2 sources) Pill rolling; Translations: [Tremor, unspecified] Onset: 03-15-2014 Episodic Other nervous system disorders (3 sources) Numbness; Translations: [Anesthesia of skin] Onset: 03-09-2024 03-09-2024 Episodic Other screening for suspected conditions (not mental disorders or infectious disease) (3 sources) Raised prostate specific antigen; Translations: [Elevated prostate specific antigen [PSA]] Onset: 12-01-2018 01-22-2024 Episodic Other upper respiratory disease (13 sources) Stenosis of trachea; Translations: [Other specified diseases of upper respiratory tract] Onset: 05-13-2014 05-13-2014 Episodic Phlebitis; thrombophlebitis and thromboembolism (13 sources) Acute embolism and thrombosis of unspecified deep veins of left lower extremity; Translations: [H/O: Deep vein thrombosis] Onset: 07-15-2018 Episodic Pulmonary heart disease (17 sources) Infarction of lung due to embolus; Translations: [Other pulmonary embolism without acute cor pulmonale] Onset: 08-06-2018 08-06-2018 Episodic Residual codes; unclassified (12 sources) Difficult venous access; Translations: [Other specified health status] Onset: 01-21-2022 Episodic Residual codes; unclassified (12 sources) Tobacco use and exposure - finding; Translations: [Tobacco use] Onset: 01-21-2022 Episodic Residual codes; unclassified (5 sources) Bilateral lower limb edema; Translations: [Localized edema] Onset: 03-31-2014 03-31-2014 Episodic Residual codes; unclassified (5 sources) Other specified personal risk factors, not elsewhere classified; Translations: [Other specified personal history presenting hazards to health] Onset: 01-29-2024 12-01-2014 Episodic Residual codes; unclassified (7 sources) Altered mental status; Translations: [Altered mental status, unspecified] Onset: 11-28-2023 11-28-2023 Episodic Residual codes; unclassified (5 sources) Staring; Translations: [Transient alteration of awareness] Onset: 12-01-2023 12-01-2023 Episodic Residual codes; unclassified (5 sources) Transient alteration of awareness; Translations: [Transient alteration of awareness] Onset: 12-01-2023 12-01-2023 Episodic Residual codes; unclassified (3 sources) Amnesia; Translations: [Other amnesia] Onset: 01-07-2024 01-07-2024 Episodic Residual codes; unclassified (3 sources) Edema of lower extremity; Translations: [Localized edema] Onset: 09-04-2020 01-22-2024 Episodic Skin and subcutaneous tissue infections (3 sources) Cellulitis; Translations: [Cellulitis, unspecified] Onset: 08-19-2023 01-22-2024 Episodic Spondylosis; intervertebral disc disorders; other back problems (18 sources) Low back pain; Translations: [Lumbago] Onset: 01-25-2014 11-25-2008 Episodic Syncope (8 sources) Syncope and collapse; Translations: [Syncope and collapse] Onset: 07-05-2022 12-01-2023 Episodic Urinary tract infections (3 sources) Urinary tract infectious disease; Translations: [Urinary tract infection, site not specified] Onset: 12-01-2018 01-22-2024 Episodic Results Test Name Value Interpretation Reference Range Facility 36on 07-29-2024 36 Regarding labs and C XR from 07/26/2024: MD Jodi Devlin MA The labs and Chest X Ray does not suggest heart failure, BNP normal and CX ray interstitial markings probably scars I recommend to increase clonidine to BID, reduce nifedipine to 60 mg daily, sleep in a bed and elevate legs and wear support stocking to reduce legs edema Referral to pulmonary JV. I spoke with Mr. Pierre and made him aware of med changes and other instructions per Dr. Crespo. He does not see pulmonary so I will send referral to Dr. Beatty. New RX's sent to his pharmacy. He verbalized understanding. ---Dr. Crespo- I was filling out referral paper to pulmonology and wasn't sure which diagnosis to use. I don't see documentation of SOB or SIMMONS. Please advise. Thanks. [facility] Telephoneon 07-29-2024 Telephone [id number] LeslyCarlyledonald Magallanes 1960 M Date Provider Department Center 07/29/2024 [id number] PHILLIPS Family History Problem Relation Age of Onset Coronary artery disease Mother Coronary artery disease Father Family Status - Relation Status Age at Mother Father [facility] Office Visiton 07-26-2024 Follow-up visit [id number] Carlyle Pierredonald Magallanes 1960 M Date Provider Department Center 07/26/2024 [id number] CRESPO Family History Problem Relation Age of Onset Coronary artery disease Mother Coronary artery disease Father Family Status - Relation Status Age at Mother Father Level of Service:40583 [place] OFFICE/OUTPATIENT ESTABLISHED MOD MDM 30 MIN Reason for Visit and Comments: Congestive Heart Failure [127] Chest Pain [] Leg Swelling [] - Hasn't been able to get his regular shoes on lately Palpitations [] - Sometimes Dizziness [[id number]] - Says BP at home during the evening sometimes falls to 80/40 Normal [facility] Office Visiton 07-13-2024 Follow-up visit [id number] Joanie Pierre A 1960 M Date Provider Department Center 07/13/2024 [id number] RODRIGUEZ [facility]ITA [facility] Family History Problem Relation Age of Onset Coronary artery disease Mother Coronary artery disease Father Family Status - Relation Status Age at Mother Father Level of Service:68075 [place] OFFICE/OUTPATIENT ESTABLISHED LOW MDM 20 MIN Normal [facility] Office Visiton 06-02-2024 Follow-up visit [id number] Joanie Pierre madonna Magallanes 1960 Date Provider Department Center 06/02/2024 Pia-LAURA ROSADO MP ORTHO MPORTHO Family History Problem Relation Age of Onset Coronary artery disease Mother Coronary artery disease Father Family Status - Relation Status Age at Mother Father Level of Service:91572 [place] OFFICE/OUTPATIENT NEW LOW MDM 30 MINUTES Reason for Visit and Comments: Pain [136] Normal [facility] Office Visiton 03-26-2024 Follow-up visit [id number] Joanie Pierre madonna Magallanes 1960 Date Provider Department Center 03/26/2024 [id number] CRESPO ANNITA [facility] Family History Problem Relation Age of Onset Coronary artery disease Mother Coronary artery disease Father Family Status - Relation Status Age at Mother Father Level of Service:03752 [place] OFFICE/OUTPATIENT ESTABLISHED MOD MDM 30 MIN Normal [facility] URN MACROSCOPIC NURon 2023 BILIRUBIN ALE Negative Normal NEG [facility] Comment on above: Performed By: #### N UM #### [facility] ([id number]) [address] [place] [address] BLOOD/HGB ALE Negative Normal NEG [facility] Comment on above: Performed By: #### N UM #### [facility] ([id number]) [address] [place] [address] 57419 GLUCOSE ALE >=1000 Abnormal NEG [facility] Comment on above: Performed By: #### N UM #### [facility] ([id number]) [address] [place] [address] 27100 KETONES ALE Negative Normal NEG [facility] Comment on above: Performed By: #### N UM #### [facility] ([id number]) [address] [place] [address] 46969 LEUKOCYTE ESTERASE ALE Negative Normal NEG [facility] Comment on above: Performed By: #### N UM #### [facility] ([id number]) [address] [place] [address] 26901 NITRITE ALE Negative Normal NEG [facility] Comment on above: Performed By: #### N UM #### [facility] ([id number]) [address] [place] [address] 39239 PH ALE 5.0 Normal 5.0-8.5 [facility] Comment on above: Performed By: #### N UM #### [facility] ([id number]) [address] [place] [address] 62132 PROTEIN ALE Negative Normal NEG [facility] Comment on above: Performed By: #### N UM #### [facility] ([id number]) [address] [place] [address]207 SPECIFIC GRAVITY ALE 1.010 Normal 1.003-1.035 [facility] Comment on above: Performed By: #### N UM #### [facility] ([id number]) [address] [place] [address] 40439 UROBILINOGEN ALE 0.2 eu/dL Normal <1.1 [facility] Comment on above: Performed By: #### N UM #### [facility] ([id number]) [address] [place] [address] Office Visiton 04-25-2024 Follow-up visit [id number] Joanie Pierre 1960 M Date Provider Department Center 01/29/2024 AlessandroSOFYA BLANCHARD [facility] Family History Problem Relation Age of Onset Coronary artery disease Mother Coronary artery disease Father Family Status - Relation Status Age at Mother Father Level of Service:39096 [place] OFFICE/OUTPATIENT ESTABLISHED MOD MDM 30 MIN Normal [facility] Office Visiton 01-13-2024 Follow-up visit [id number] Joanie Pierre Sona 1960 M Date Provider Department Center 01/13/2024 SOFYA [facility] Family History Problem Relation Age of Onset Coronary artery disease Mother Coronary artery disease Father Family Status - Relation Status Age at Mother Father Level of Service:84262 [place] OFFICE/OUTPATIENT ESTABLISHED MOD MDM 30 MIN Normal [facility] Glucose,Whole Bloodon 2023 Glucose [Mass/Vol] 203 mg/dL High 75-110 [facility] Glucose [Mass/Vol] 206 mg/dL High 75-110 [facility] Glucose [Mass/Vol] 167 mg/dL High 75-110 [facility] Glucose [Mass/Vol] 137 mg/dL High 75-110 [facility] POC Glucose Fingerstickon Glucose [Mass/Vol] 203 mg/dL High 75 - 110 mg/dL [facility] Interpretation and review of laboratory results Abnormal [facility] Glucose [Mass/Vol] 206 mg/dL High 75 - 110 mg/dL [facility] Interpretation and review of laboratory results Abnormal [facility] Glucose [Mass/Vol] 167 mg/dL High 75 - 110 mg/dL [facility] Interpretation and review of laboratory results Abnormal [facility] Glucose [Mass/Vol] 137 mg/dL High 75 - 110 mg/dL [facility] Interpretation and review of laboratory results Abnormal [facility] PTon 12-08-2023 INR Coag (PPP) [Relative time] 3.3 {INR} Normal [facility] Comment on above: Result Comment: Therapeutic Range: Moderate Anticoagulant Intensity: INR = 2.0-3.0 High Anticoagulant Intensity: INR = 2.5-3.5 Performed By: #### P T #### [employer] [address] [place], [place] [id number] Report Writer: Jasbir Montalvo MD PT Coag (PPP) [Time] 32.3 s High 11.7-14.9 [facility] Comment on above: Performed By: #### P T #### [employer] [address] [place], [place] [id number] Report Writer: Jasbir Montalvo MD Protime-INRon 12-08-2023 INR Coag (PPP) [Relative time] 3.3 {INR} [facility] Comment on above: Therapeutic Range: Moderate Anticoagulant Intensity: INR = 2.0-3.0 High Anticoagulant Intensity: INR = 2.5-3.5 Interpretation and review of laboratory results Abnormal [facility] Recommend PT Coag (PPP) [Time] 32.3 s High [facility] Recommend Glucose,Whole Bloodon 2023 Glucose [Mass/Vol] 193 mg/dL High 75-110 [facility] Glucose [Mass/Vol] 154 mg/dL High 75-110 [facility] Glucose [Mass/Vol] 145 mg/dL High 75-110 [facility] Glucose [Mass/Vol] 132 mg/dL High 75-110 [facility] Hemoglobin and Hematocriton 12-07-2023 Hematocrit (Bld) [Volume fraction] 44.1 % 40.7 - 50.3 % [facility] Recommend Hemoglobin (Bld) [Mass/Vol] 14.0 g/dL 13.0 - 17.0 g/dL [facility] Recommend Hgb/Hcton 12-07-2023 Hematocrit (Bld) [Volume fraction] 44.1 % Normal 40.7-50.3 [facility] Comment on above: Performed By: #### P HO, CDP, RA, PT, SED, BMPX, FREDA, MG, LD, CRP, FEBC, B12FOL, PTT, C4, CCPAB, FERI, IOCAL, CORTI, CK, C3, REJEC #### [employer] [facility] [place] [id number] Report Writer: Jasbir Montalvo MD Hemoglobin (Bld) [Mass/Vol] 14.0 g/dL Normal 13.0-17.0 [facility] Comment on above: Performed By: #### P HO, CDP, RA, PT, SED, BMPX, FREDA, MG, LD, CRP, FEBC, B12FOL, PTT, C4, CCPAB, FERI, IOCAL, CORTI, CK, C3, REJEC #### [employer] [address] [place] [id number] Report Writer: Jasbir Montalvo MD No Panel Informationon 12-06 [facility] POC Glucose Fingerstickon Glucose [Mass/Vol] 193 mg/dL High 75 - 110 mg/dL [facility] Interpretation and review of laboratory results Abnormal [facility] Glucose [Mass/Vol] 154 mg/dL High 75 - 110 mg/dL [facility] Interpretation and review of laboratory results Abnormal [facility] Glucose [Mass/Vol] 145 mg/dL High 75 - 110 mg/dL [facility] Interpretation and review of laboratory results Abnormal [facility] Glucose [Mass/Vol] 132 mg/dL High 75 - 110 mg/dL [facility] Interpretation and review of laboratory results Abnormal [facility] PTon 12-07-2023 INR Coag (PPP) [Relative time] 3.2 {INR} Normal [facility] Comment on above: Result Comment: Therapeutic Range: Moderate Anticoagulant Intensity: INR = 2.0-3.0 High Anticoagulant Intensity: INR = 2.5-3.5 Performed By: #### P HO, CDP, RA, PT, SED, BMPX, FREDA, MG, LD, CRP, FEBC, B12FOL, PTT, C4, CCPAB, FERI, IOCAL, CORTI, CK, C3, REJEC #### [facility] [email or web address] [address] [place] [address] [id number] Report Writer: Jasbir Montalvo MD PT Coag (PPP) [Time] 32.1 s High 11.7-14.9 [facility] Comment on above: Performed By: #### P HO, CDP, RA, PT, SED, BMPX, FREDA, MG, LD, CRP, FEBC, B12FOL, PTT, C4, CCPAB, FERI, IOCAL, CORTI, CK, C3, REJEC #### [facility] [email or web address] [address] [place] [id number] Report Writer: Jasbir Montalvo MD Platelet Counton 12-07-2023 Platelets (Bld) [#/Vol] 252 10*3/uL Normal 138-453 [facility] Comment on above: Performed By: #### P HO, CDP, RA, PT, SED, BMPX, FREDA, MG, LD, CRP, FEBC, B12FOL, PTT, C4, CCPAB, FERI, IOCAL, CORTI, CK, C3, REJEC #### [facility] [email or web address] [address] [place] [id number] Report Writer: Jasbir Montalvo MD Platelets (Bld) [#/Vol] 252 10*3/uL [facility] Recommend Protime-INRon 12-07-2023 INR Coag (PPP) [Relative time] 3.2 {INR} [facility] Comment on above: Therapeutic Range: Moderate Anticoagulant Intensity: INR = 2.0-3.0 High Anticoagulant Intensity: INR = 2.5-3.5 Interpretation and review of laboratory results Abnormal [facility] Recommend PT Coag (PPP) [Time] 32.1 s High [facility] Glucose,Whole Bloodon 2023 Glucose [Mass/Vol] 155 mg/dL High 75-110 [facility] Glucose [Mass/Vol] 190 mg/dL High 75-110 [facility] Glucose [Mass/Vol] 176 mg/dL High 75-110 [facility] Glucose [Mass/Vol] 119 mg/dL High 75-110 [facility] POC Glucose Fingerstickon Glucose [Mass/Vol] 155 mg/dL High 75 - 110 mg/dL [facility] Interpretation and review of laboratory results Abnormal [facility] Glucose [Mass/Vol] 190 mg/dL High 75 - 110 mg/dL [facility] Interpretation and review of laboratory results Abnormal [facility] Glucose [Mass/Vol] 176 mg/dL High 75 - 110 mg/dL [facility] Interpretation and review of laboratory results Abnormal [facility] Glucose [Mass/Vol] 119 mg/dL High 75 - 110 mg/dL [facility] Interpretation and review of laboratory results Abnormal [facility] PTon 12-06-2023 INR Coag (PPP) [Relative time] 2.7 {INR} Normal [facility] Comment on above: Result Comment: Therapeutic Range: Moderate Anticoagulant Intensity: INR = 2.0-3.0 High Anticoagulant Intensity: INR = 2.5-3.5 Performed By: #### P HO, CDP, RA, PT, SED, BMPX, FREDA, MG, LD, CRP, FEBC, B12FOL, PTT, C4, CCPAB, FERI, IOCAL, CORTI, CK, C3, REJEC #### [employer] [address] [place] [id number] Report Writer: Jasbir Montalvo MD PT Coag (PPP) [Time] 28.0 s High 11.7-14.9 [facility] Comment on above: Performed By: #### P HO, CDP, RA, PT, SED, BMPX, FREDA, MG, LD, CRP, FEBC, B12FOL, PTT, C4, CCPAB, FERI, IOCAL, CORTI, CK, C3, REJEC #### [employer] [address] [place] [address] Report Writer: Jasbir Montalvo MD Protime-INRon 12-06-2023 INR Coag (PPP) [Relative time] 2.7 {INR} [facility] Comment on above: Therapeutic Range: Moderate Anticoagulant Intensity: INR = 2.0-3.0 High Anticoagulant Intensity: INR = 2.5-3.5 Interpretation and review of laboratory results Abnormal [facility] PT Coag (PPP) [Time] 28.0 s High [facility] XR FOOT RIGHT (2 VIEWS)on XR FOOT [...] Christian Baldwin MD 12/06/23 Final result Normal [facility] XR Foot - right 2 Viewson 1. No fracture or dislocation. 2. Mild osteoarthritic changes. 3. Diffuse soft tissue swelling. [facility] EXAMINATION: TWO XRAY VIEWS [...] diffuse soft tissue swelling of the foot. [facility] Christian Baldwin MD - [...] osteoarthritic changes. 3. Diffuse soft tissue swelling. [facility] XR Foot - right 2 ViewsOrder ed By: Christian Baldwin on 12-06-2023 [facility] Work Phone: Glucose,Whole Bloodon 2023 Glucose [Mass/Vol] 160 mg/dL High 75-110 [facility] Glucose [Mass/Vol] 137 mg/dL High 75-110 [facility] Glucose [Mass/Vol] 189 mg/dL High 75-110 [facility] Glucose [Mass/Vol] 131 mg/dL High 75-110 [facility] Hemoglobin and Hematocriton 12-05-2023 Hematocrit (Bld) [Volume fraction] 42.9 % 40.7 - 50.3 % [facility] Hemoglobin (Bld) [Mass/Vol] 13.1 g/dL 13.0 - 17.0 g/dL [facility] Hgb/Hcton 12-05-2023 Hematocrit (Bld) [Volume fraction] 42.9 % Normal 40.7-50.3 [facility] Comment on above: Performed By: #### P HO, CDP, RA, PT, SED, BMPX, FREDA, MG, LD, CRP, FEBC, B12FOL, PTT, C4, CCPAB, FERI, IOCAL, CORTI, CK, C3, REJEC #### [employer] [address] [place] [id number] Report Writer: Jasbir Montalvo MD Hemoglobin (Bld) [Mass/Vol] 13.1 g/dL Normal 13.0-17.0 [facility] Comment on above: Performed By: #### P HO, CDP, RA, PT, SED, BMPX, FREDA, MG, LD, CRP, FEBC, B12FOL, PTT, C4, CCPAB, FERI, IOCAL, CORTI, CK, C3, REJEC #### [employer] [address] [place] [id number] Report Writer: Jasbir Montalvo MD No Panel Informationon 12-04 [facility] Glucose Fingerstickon Glucose [Mass/Vol] 160 mg/dL High 75 - 110 mg/dL [facility] Recommend Interpretation and review of laboratory results Abnormal [facility] Recommend Glucose [Mass/Vol] 137 mg/dL High 75 - 110 mg/dL [facility] Interpretation and review of laboratory results Abnormal [facility] Glucose [Mass/Vol] 189 mg/dL High 75 - 110 mg/dL [facility] Recommend Interpretation and review of laboratory results Abnormal [facility] Recommend Glucose [Mass/Vol] 131 mg/dL High 75 - 110 mg/dL [facility] Recommend Interpretation and review of laboratory results Abnormal [facility] PTon 12-05-2023 INR Coag (PPP) [Relative time] 2.6 {INR} Normal [facility] Comment on above: Result Comment: Therapeutic Range: Moderate Anticoagulant Intensity: INR = 2.0-3.0 High Anticoagulant Intensity: INR = 2.5-3.5 Performed By: #### P HO, CDP, RA, PT, SED, BMPX, FREDA, MG, LD, CRP, FEBC, B12FOL, PTT, C4, CCPAB, FERI, IOCAL, CORTI, CK, C3, REJEC #### [employer] [address] [place] [id number] Report Writer: Jasbir Montalvo MD PT Coag (PPP) [Time] 26.8 s High 11.7-14.9 [facility] Comment on above: Performed By: #### P HO, CDP, RA, PT, SED, BMPX, FREDA, MG, LD, CRP, FEBC, B12FOL, PTT, C4, CCPAB, FERI, IOCAL, CORTI, CK, C3, REJEC #### [employer] [address] [place] [id number] Report Writer: Jasbir Montalvo MD Platelet Counton 12-05-2023 Platelets (Bld) [#/Vol] 194 10*3/uL Normal 138-453 [facility] Comment on above: Performed By: #### P HO, CDP, RA, PT, SED, BMPX, FREDA, MG, LD, CRP, FEBC, B12FOL, PTT, C4, CCPAB, FERI, IOCAL, CORTI, CK, C3, REJEC #### [employer] [address] [place] [address] Report Writer: Jasbir Montalvo MD Platelets (Bld) [#/Vol] 194 10*3/uL [facility] Protime-INRon 12-05-2023 INR Coag (PPP) [Relative time] 2.6 {INR} [facility] Recommend Comment on above: Therapeutic Range: Moderate Anticoagulant Intensity: INR = 2.0-3.0 High Anticoagulant Intensity: INR = 2.5-3.5 Interpretation and review of laboratory results Abnormal [facility] Recommend PT Coag (PPP) [Time] 26.8 s High [facility] Recommend [facility] Foot - right 2 Viewson Radiology Study observation (narrative) [facility] Recommend Glucose,Whole Bloodon 2023 Glucose [Mass/Vol] 181 mg/dL High 75-110 [facility] Glucose [Mass/Vol] 194 mg/dL High 75-110 [facility] Glucose [Mass/Vol] 184 mg/dL High 75-110 [facility] Glucose [Mass/Vol] 120 mg/dL High 75-110 [facility] Glucose [Mass/Vol] 161 mg/dL High -110 [facility] POC Glucose Fingerstickon 02 -29-2024 Glucose [Mass/Vol] 181 mg/dL High 75 - 110 mg/dL [facility] Interpretation and review of laboratory results Abnormal [facility] Glucose [Mass/Vol] 194 mg/dL High 75 - 110 mg/dL [facility] Interpretation and review of laboratory results Abnormal [facility] Glucose [Mass/Vol] 184 mg/dL High 75 - 110 mg/dL [facility] Interpretation and review of laboratory results Abnormal [facility] Glucose [Mass/Vol] 120 mg/dL High 75 - 110 mg/dL [facility] Interpretation and review of laboratory results Abnormal [facility] Glucose [Mass/Vol] 161 mg/dL High 75 - 110 mg/dL [facility] Interpretation and review of laboratory results Abnormal [facility] PTon 12-04-2023 INR Coag (PPP) [Relative time] 3.0 {INR} Normal [facility] Comment on above: Result Comment: Therapeutic Range: Moderate Anticoagulant Intensity: INR = 2.0-3.0 High Anticoagulant Intensity: INR = 2.5-3.5 Performed By: #### P HO, CDP, RA, PT, SED, BMPX, FREDA, MG, LD, CRP, FEBC, B12FOL, PTT, C4, CCPAB, FERI, IOCAL, CORTI, CK, C3, REJEC #### [employer] [address] [place] [id number] Report Writer: Jasbir Montalvo MD PT Coag (PPP) [Time] 30.5 s High 11.7-14.9 [facility] Comment on above: Performed By: #### P HO, CDP, RA, PT, SED, BMPX, FREDA, MG, LD, CRP, FEBC, B12FOL, PTT, C4, CCPAB, FERI, IOCAL, CORTI, CK, C3, REJEC #### [employer] [address] [place] [id number] Report Writer: Jasbir Montalvo MD Protime-INRon 12-04-2023 INR Coag (PPP) [Relative time] 3.0 {INR} [employer] [facility] Comment on above: Therapeutic Range: Moderate Anticoagulant Intensity: INR = 2.0-3.0 High Anticoagulant Intensity: INR = 2.5-3.5 Interpretation and review of laboratory results Abnormal [employer] [facility] PT Coag (PPP) [Time] 30.5 s High [facility] EKG 12 LeadOrdered By: Cesar Jean on 12-03-2023 Atrial Rate 67 BPM [employer] [facility] Work Phone: P Senath 78 degrees [facility] Work Phone: P-R Interval 148 ms [employer] [facility] Work Phone: Q-T Interval 404 ms [employer] [facility] Work Phone: QRS Duration 70 ms [employer] [facility] Work Phone: QTc Calculation (Bazett) 426 ms [employer] [facility] Work Phone: R Senath -47 degrees [employer] [facility] Work Phone: T Senath 100 degrees [employer] [facility] Work Phone: Ventricular Rate 67 BPM [facility] [facility] [place] Work Phone: [employer] Work Phone: EKG 12 Leadon 12-03-2023 Normal sinus rhythm Left axis deviation Inferior infarct , 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 , age undetermined Abnormal ECG No previous ECGs available [facility] ST[facility] Nixon MD - 12/03/2023 Normal sinus rhythm Left axis deviation Inferior infarct , 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 , age undetermined Abnormal ECG No previous ECGs available [facility] Atrial Rate 66 BPM [facility] P Senath 111 degrees [facility] P-R Interval 128 ms [facility] Q-T Interval 440 ms [facility] QRS Duration 94 ms [facility] QTc Calculation (Bazett) 461 ms [facility] R Senath -48 degrees [facility] T Senath 12 degrees [facility] Ventricular Rate 66 BPM [facility] Normal sinus rhythm Left anterior fascicular block Anterolateral infarct (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) Abnormal ECG When compared with ECG of 01-DEC-2023 15:42, QRS duration has increased ST no longer depressed in Anterolateral leads [facility]V Lori King MD - 12/03/2023 Normal sinus rhythm Left anterior fascicular block Anterolateral infarct (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) Abnormal ECG When compared with ECG of 01-DEC-2023 15:42, QRS duration has increased ST no longer depressed in Anterolateral leads [facility] Glucose,Whole Bloodon 2023 Glucose [Mass/Vol] 232 mg/dL High 75-110 [facility] Glucose [Mass/Vol] 174 mg/dL High 75-110 [facility] Glucose [Mass/Vol] 176 mg/dL High 75-110 [facility] Glucose [Mass/Vol] 83 mg/dL Normal 75-110 [facility] POC Glucose Fingerstickon Glucose [Mass/Vol] 232 mg/dL High 75 - 110 mg/dL [facility] Interpretation and review of laboratory results Abnormal [facility] Glucose [Mass/Vol] 174 mg/dL High 75 - 110 mg/dL [facility] Interpretation and review of laboratory results Abnormal [facility] Glucose [Mass/Vol] 176 mg/dL High 75 - 110 mg/dL [facility] Interpretation and review of laboratory results Abnormal [facility] Glucose [Mass/Vol] 83 mg/dL 75 - 110 mg/dL [facility] PTon 12-03-2023 INR Coag (PPP) [Relative time] 3.3 {INR} Normal [facility] Comment on above: Result Comment: Therapeutic Range: Moderate Anticoagulant Intensity: INR = 2.0-3.0 High Anticoagulant Intensity: INR = 2.5-3.5 Performed By: #### P HO, CDP, RA, PT, SED, BMPX, FREDA, MG, LD, CRP, FEBC, B12FOL, PTT, C4, CCPAB, FERI, IOCAL, CORTI, CK, C3, REJEC #### [email or web address] [address] [place] [id number] Report Writer: Jasbir Montalvo MD PT Coag (PPP) [Time] 32.2 s High 11.7-14.9 [facility] Comment on above: Performed By: #### P HO, CDP, RA, PT, SED, BMPX, FREDA, MG, LD, CRP, FEBC, B12FOL, PTT, C4, CCPAB, FERI, IOCAL, CORTI, CK, C3, REJEC #### [address] [address] Report Writer: Jasbir Montalvo MD Protime-INRon 12-03-2023 INR Coag (PPP) [Relative time] 3.3 {INR} [facility] Comment on above: Therapeutic Range: Moderate Anticoagulant Intensity: INR = 2.0-3.0 High Anticoagulant Intensity: INR = 2.5-3.5 Interpretation and review of laboratory results Abnormal [facility] PT Coag (PPP) [Time] 32.2 s High [facility] Basic Metab w/rfx MGon 12-02 Anion gap [Moles/Vol] 9 mmol/L Normal 9-17 [facility] Comment on above: Performed By: #### P HO, CDP, RA, PT, SED, BMPX, FREDA, MG, LD, CRP, FEBC, B12FOL, PTT, C4, CCPAB, FERI, IOCAL, CORTI, CK, C3, REJEC #### [address] [address] Report Writer: Jasbir Montalvo MD Calcium [Mass/Vol] 8.8 mg/dL Normal 8.6-10.4 [facility] Comment on above: Performed By: #### P HO, CDP, RA, PT, SED, BMPX, FREDA, MG, LD, CRP, FEBC, B12FOL, PTT, C4, CCPAB, FERI, IOCAL, CORTI, CK, C3, REJEC #### [address] [address] Report Writer: Jasbir Montalvo MD Chloride [Moles/Vol] 109 mmol/L High 98-107 [facility] Comment on above: Performed By: #### P HO, CDP, RA, PT, SED, BMPX, FREDA, MG, LD, CRP, FEBC, B12FOL, PTT, C4, CCPAB, FERI, IOCAL, CORTI, CK, C3, REJEC #### [address] [address] Report Writer: Jasbir Montalvo MD CO2 [Moles/Vol] 22 mmol/L Normal 20-31 [facility] Comment on above: Performed By: #### P HO, CDP, RA, PT, SED, BMPX, FREDA, MG, LD, CRP, FEBC, B12FOL, PTT, C4, CCPAB, FERI, IOCAL, CORTI, CK, C3, REJEC #### [address] [address] Report Writer: Jasbir Montalvo MD Creatinine [Mass/Vol] 1.5 mg/dL High 0.7-1.2 [facility] Comment on above: Performed By: #### P HO, CDP, RA, PT, SED, BMPX, FREDA, MG, LD, CRP, FEBC, B12FOL, PTT, C4, CCPAB, FERI, IOCAL, CORTI, CK, C3, REJEC #### [address] [address] Report Writer: Jasbir Montalvo MD GFR/1.73 sq M.predicted among non-blacks MDRD (S/P/Bld) [Vol rate/Area] 52 mL/min/{1.73_m2} Low >60 [facility] Comment on above: Result Comment: These results [...] FERI, IOCAL, CORTI, CK, C3, REJEC #### [address] [address] Report Writer: Jasbir Montalvo MD Glucose [Mass/Vol] 165 mg/dL High 70-99 [facility] Comment on above: Performed By: #### P HO, CDP, RA, PT, SED, BMPX, FREDA, MG, LD, CRP, FEBC, B12FOL, PTT, C4, CCPAB, FERI, IOCAL, CORTI, CK, C3, REJEC #### [address] [address] Report Writer: Jasbir Montalvo MD Potassium [Moles/Vol] 3.7 mmol/L Normal 3.7-5.3 [facility] Comment on above: Performed By: #### P HO, CDP, RA, PT, SED, BMPX, FREDA, MG, LD, CRP, FEBC, B12FOL, PTT, C4, CCPAB, FERI, IOCAL, CORTI, CK, C3, REJEC #### [email or web address] [address] [place] [address] Report Writer: Jasbir Montalvo MD Sodium [Moles/Vol] 140 mmol/L Normal 135-144 [facility] Comment on above: Performed By: #### P HO, CDP, RA, PT, SED, BMPX, FREDA, MG, LD, CRP, FEBC, B12FOL, PTT, C4, CCPAB, FERI, IOCAL, CORTI, CK, C3, REJEC #### [employer] [address] [place], [place] [id number] Report Writer: Jasbir Montalvo MD Urea nitrogen [Mass/Vol] 36 mg/dL High 8- [facility] Comment on above: Performed By: #### P HO, CDP, RA, PT, SED, BMPX, FREDA, MG, LD, CRP, FEBC, B12FOL, PTT, C4, CCPAB, FERI, IOCAL, CORTI, CK, C3, REJEC #### [employer] [address] [place] [address] Report Writer: Jasbir Montalvo MD Basic Metabolic Panel w/ Ref sarah to MGon 12-02-2023 Anion gap [Moles/Vol] 9 mmol/L 9 - 17 mmol/L [facility] [employer] Calcium [Mass/Vol] 8.8 mg/dL 8.6 - 10. 4 mg/dL [facility] Chloride [Moles/Vol] 109 mmol/L High 98 - 107 mmol/L [facility] CO2 [Moles/Vol] 22 mmol/L 20 - 31 mmol/L [facility] Creatinine [Mass/Vol] 1.5 mg/dL High 0.7 - 1.2 mg/dL [facility] GFR/1.73 sq M.predicted MDRD (S/P/Bld) [Vol rate/Area] 52 mL/min/{1.73_m2} Low - PINF [facility] Comment on above: These results are not [...] 165 mg/dL High 70 - 99 mg/dL [facility] Interpretation and review of laboratory results Abnormal [facility] Potassium [Moles/Vol] 3.7 mmol/L 3.7 - 5.3 mmol/L [facility] Sodium [Moles/Vol] 140 mmol/L 135 - 144 mmol/L [facility] Urea nitrogen [Mass/Vol] 36 mg/dL High 8 - 23 mg/dL [facility] CBC with Auto Differentialon 12-02-2023 Basophils (Bld) [#/Vol] 0.08 10*3/uL [facility] Basophils/100 WBC (Bld) 1 % 0 - 2 % [facility] Eosinophils (Bld) [#/Vol] 0.43 10*3/uL [facility] Eosinophils/100 WBC (Bld) 4 % 1 - 4 % [facility] Erythrocyte distribution width (RBC) [Ratio] 14.2 % 11.8 - 14.4 % [facility] Hematocrit (Bld) [Volume fraction] 46.4 % 40.7 - 50.3 % [facility] Hemoglobin (Bld) [Mass/Vol] 14.4 g/dL 13.0 - 17.0 g/dL [facility] Immature granulocytes (Bld) [#/Vol] 0.03 10*3/uL [facility] Immature granulocytes/100 WBC (Bld) 0 % 0 [facility] Lymphocytes/100 WBC (Bld) 29 % 24 - 43 % [facility] Lymphocytes/100 WBC (Bld) 3.23 % [facility] MCH (RBC) [Entitic mass] 31.2 pg 25.2 - 33.5 pg [facility] MCHC (RBC) [Mass/Vol] 31.0 g/dL 28.4 - 34.8 g/dL [facility] MCV (RBC) [Entitic vol] 100.7 fL 82.6 - 102.9 fL [facility] Monocytes/100 WBC (Bld) 8 % 3 - 12 % [facility] Monocytes/100 WBC (Bld) 0.93 % [facility] Neutrophils/100 WBC (Bld) 58 % 36 - 65 % [facility] Recommend Nucleated RBC/100 WBC (Bld) [Ratio] 0.0 % 0.0 per 100 WBC [facility] Recommend Platelet mean volume (Bld) [Entitic vol] 10.3 fL 8.1 - 13.5 fL [facility] Recommend Platelets (Bld) [#/Vol] 230 10*3/uL [facility] Recommend RBC (Bld) [#/Vol] 4.61 10*6/uL 4.21 - 5.7 7 m/uL [facility] Seg[facility] neutrophils/100 WBC (Bld) 6.39 % [facility] Recommend WBC other (Bld) [#/Vol] 11.1 [facility] Recommend CBC with Diffon 12-02-2023 Abs. Basophil 0.08 k/uL Normal 0.00-0.20 [facility] Comment on above: Performed By: #### P HO, CDP, RA, PT, SED, BMPX, FREDA, MG, LD, CRP, FEBC, B12FOL, PTT, C4, CCPAB, FERI, IOCAL, CORTI, CK, C3, REJEC #### [email or web address] [address] [place] [id number] Report Writer: Jasbir Montalvo MD Abs.Imm.Granulocyte 0.03 k/uL Normal 0.00-0.30 [facility] Comment on above: Performed By: #### P HO, CDP, RA, PT, SED, BMPX, FREDA, MG, LD, CRP, FEBC, B12FOL, PTT, C4, CCPAB, FERI, IOCAL, CORTI, CK, C3, REJEC #### [email or web address] [address] [place] [id number] Report Writer: Jasbir Montalvo MD Abs.Neutrophil (Seg) 6.39 k/uL Normal 1.50-8.10 [facility] Comment on above: Performed By: #### P HO, CDP, RA, PT, SED, BMPX, FREDA, MG, LD, CRP, FEBC, B12FOL, PTT, C4, CCPAB, FERI, IOCAL, CORTI, CK, C3, REJEC #### [address] [address] Report Writer: Jasbir Montalvo MD Basophils/100 WBC (Bld) 1 % Normal 0-2 [facility] Comment on above: Performed By: #### P HO, CDP, RA, PT, SED, BMPX, FREDA, MG, LD, CRP, FEBC, B12FOL, PTT, C4, CCPAB, FERI, IOCAL, CORTI, CK, C3, REJEC #### [address] [address] Report Writer: Jasbir Montalvo MD Eosinophils (Bld) [#/Vol] 0.43 10*3/uL Normal 0.00-0.44 [facility] Comment on above: Performed By: #### P HO, CDP, RA, PT, SED, BMPX, FREDA, MG, LD, CRP, FEBC, B12FOL, PTT, C4, CCPAB, FERI, IOCAL, CORTI, CK, C3, REJEC #### [address] [address] Report Writer: Jasbir Montalvo MD Eosinophils/100 WBC (Bld) 4 % Normal 1-4 [facility] Comment on above: Performed By: #### P HO, CDP, RA, PT, SED, BMPX, FREDA, MG, LD, CRP, FEBC, B12FOL, PTT, C4, CCPAB, FERI, IOCAL, CORTI, CK, C3, REJEC #### [address] [address] Report Writer: Jasbir Montalvo MD Erythrocyte distribution width (RBC) [Ratio] 14.2 % Normal 11.8-14.4 [facility] Comment on above: Performed By: #### P HO, CDP, RA, PT, SED, BMPX, FREDA, MG, LD, CRP, FEBC, B12FOL, PTT, C4, CCPAB, FERI, IOCAL, CORTI, CK, C3, REJEC #### [address] [address] Report Writer: Jasbir Montalvo MD Hematocrit (Bld) [Volume fraction] 46.4 % Normal 40.7-50.3 [facility] Comment on above: Performed By: #### P HO, CDP, RA, PT, SED, BMPX, FREDA, MG, LD, CRP, FEBC, B12FOL, PTT, C4, CCPAB, FERI, IOCAL, CORTI, CK, C3, REJEC #### [address] [address] Report Writer: Jasbir Montalvo MD Hemoglobin (Bld) [Mass/Vol] 14.4 g/dL Normal 13.0-17.0 [facility] Comment on above: Performed By: #### P HO, CDP, RA, PT, SED, BMPX, FREDA, MG, LD, CRP, FEBC, B12FOL, PTT, C4, CCPAB, FERI, IOCAL, CORTI, CK, C3, REJEC #### [address] [address] Report Writer: Jasbir Montalvo MD Immature granulocytes/100 WBC (Bld) 0 % Normal 0 [facility] Comment on above: Performed By: #### P HO, CDP, RA, PT, SED, BMPX, FREDA, MG, LD, CRP, FEBC, B12FOL, PTT, C4, CCPAB, FERI, IOCAL, CORTI, CK, C3, REJEC #### [address] [address] Report Writer: Jasbir Montalvo MD Lymphocytes (Bld) [#/Vol] 3.23 10*3/uL Normal 1.10-3.70 [facility] Comment on above: Performed By: #### P HO, CDP, RA, PT, SED, BMPX, FREDA, MG, LD, CRP, FEBC, B12FOL, PTT, C4, CCPAB, FERI, IOCAL, CORTI, CK, C3, REJEC #### [address] [address] Report Writer: Jasbir Montalvo MD Lymphocytes/100 WBC (Bld) 29 % Normal 24-43 [facility] Comment on above: Performed By: #### P HO, CDP, RA, PT, SED, BMPX, FREDA, MG, LD, CRP, FEBC, B12FOL, PTT, C4, CCPAB, FERI, IOCAL, CORTI, CK, C3, REJEC #### [address] [address] Report Writer: Jasbir Montalvo MD MCH (RBC) [Entitic mass] 31.2 pg Normal 25.2-33.5 [facility] Comment on above: Performed By: #### P HO, CDP, RA, PT, SED, BMPX, FREDA, MG, LD, CRP, FEBC, B12FOL, PTT, C4, CCPAB, FERI, IOCAL, CORTI, CK, C3, REJEC #### [address] [address] Report Writer: Jasbir Montalvo MD MCHC (RBC) [Mass/Vol] 31.0 g/dL Normal 28.4-34.8 [facility] Comment on above: Performed By: #### P HO, CDP, RA, PT, SED, BMPX, FREDA, MG, LD, CRP, FEBC, B12FOL, PTT, C4, CCPAB, FERI, IOCAL, CORTI, CK, C3, REJEC #### [address] [address] Report Writer: Jasbir Montalvo MD MCV (RBC) [Entitic vol] 100.7 fL Normal 82.6-102.9 [facility] Comment on above: Performed By: #### P HO, CDP, RA, PT, SED, BMPX, FREDA, MG, LD, CRP, FEBC, B12FOL, PTT, C4, CCPAB, FERI, IOCAL, CORTI, CK, C3, REJEC #### [address] [address] Report Writer: Jasbir Montalvo MD Monocytes (Bld) [#/Vol] 0.93 10*3/uL Normal 0.10-1.20 [facility] Comment on above: Performed By: #### P HO, CDP, RA, PT, SED, BMPX, FREDA, MG, LD, CRP, FEBC, B12FOL, PTT, C4, CCPAB, FERI, IOCAL, CORTI, CK, C3, REJEC #### [address] [address] Report Writer: Jasbir Montalvo MD Monocytes/100 WBC (Bld) 8 % Normal 3-12 [facility] Comment on above: Performed By: #### P HO, CDP, RA, PT, SED, BMPX, FREDA, MG, LD, CRP, FEBC, B12FOL, PTT, C4, CCPAB, FERI, IOCAL, CORTI, CK, C3, REJEC #### [address] [address] Report Writer: Jasbir Montalvo MD Neutrophil (Seg) 58 % Normal 36-65 [facility] Comment on above: Performed By: #### P HO, CDP, RA, PT, SED, BMPX, FREDA, MG, LD, CRP, FEBC, B12FOL, PTT, C4, CCPAB, FERI, IOCAL, CORTI, CK, C3, REJEC #### [address] [address] Report Writer: Jasbir Montalvo MD NRBC Automated 0.0 per 100 WBC Normal 0.0 [facility] Comment on above: Performed By: #### P HO, CDP, RA, PT, SED, BMPX, FREDA, MG, LD, CRP, FEBC, B12FOL, PTT, C4, CCPAB, FERI, IOCAL, CORTI, CK, C3, REJEC #### [address] [address] Report Writer: Jasbir Montalvo MD Platelet mean volume (Bld) [Entitic vol] 10.3 fL Normal 8.1-13.5 [facility] Comment on above: Performed By: #### P HO, CDP, RA, PT, SED, BMPX, FREDA, MG, LD, CRP, FEBC, B12FOL, PTT, C4, CCPAB, FERI, IOCAL, CORTI, CK, C3, REJEC #### [address] [address] Report Writer: Jasbir Montalvo MD Platelets (Bld) [#/Vol] 230 10*3/uL Normal 138-453 [facility] [place] Comment on above: Performed By: #### P HO, CDP, RA, PT, SED, BMPX, FREDA, MG, LD, CRP, FEBC, B12FOL, PTT, C4, CCPAB, FERI, IOCAL, CORTI, CK, C3, REJEC #### [address] [id number] Report Writer: Jasbir Montalvo MD RBC (Bld) [#/Vol] 4.61 10*6/uL Normal 4.21-5.77 [facility] [place] Comment on above: Performed By: #### P HO, CDP, RA, PT, SED, BMPX, FREDA, MG, LD, CRP, FEBC, B12FOL, PTT, C4, CCPAB, FERI, IOCAL, CORTI, CK, C3, REJEC #### [address] [address] Report Writer: Jasbir Montalvo MD WBC (Bld) [#/Vol] 11.1 10*3/uL Normal 3.5-11.3 [facility] [place] Comment on above: Performed By: #### P HO, CDP, RA, PT, SED, BMPX, FREDA, MG, LD, CRP, FEBC, B12FOL, PTT, C4, CCPAB, FERI, IOCAL, CORTI, CK, C3, REJEC #### [facility] [email or web address] [address] [place] [address] Report Writer: Jasbir Montalvo MD EEGon 12-02-2023 Ayo Torres [...] to moderate encephalopathy . Ayo Torres MD [facility] EEGOrdered By: Ayo Torres on 12-02-2023 [facility] Work Phone: Glucose,Whole Bloodon 2023 Glucose [Mass/Vol] 179 mg/dL High 75-110 [facility] [place] Glucose [Mass/Vol] 169 mg/dL High 75-110 [facility] [place] Glucose [Mass/Vol] 172 mg/dL High 75-110 [facility] [place] Glucose [Mass/Vol] 117 mg/dL High 75-110 [facility] [place] POC Glucose Fingerstickon Glucose [Mass/Vol] 179 mg/dL High 75 - 110 mg/dL [facility] Interpretation and review of laboratory results Abnormal [facility] Glucose [Mass/Vol] 169 mg/dL High 75 - 110 mg/dL [facility] Interpretation and review of laboratory results Abnormal [facility] Glucose [Mass/Vol] 172 mg/dL High 75 - 110 mg/dL [facility] Interpretation and review of laboratory results Abnormal [facility] Glucose [Mass/Vol] 117 mg/dL High 75 - 110 mg/dL [facility] Interpretation and review of laboratory results Abnormal [facility] PTon 12-02-2023 INR Coag (PPP) [Relative time] 2.8 {INR} Normal [facility] [place] Comment on above: Result Comment: Therapeutic Range: Moderate Anticoagulant Intensity: INR = 2.0-3.0 High Anticoagulant Intensity: INR = 2.5-3.5 Performed By: #### P HO, CDP, RA, PT, SED, BMPX, FREDA, MG, LD, CRP, FEBC, B12FOL, PTT, C4, CCPAB, FERI, IOCAL, CORTI, CK, C3, REJEC #### [employer] [address] [place], [place] [id number] Report Writer: Jasbir Montalvo MD PT Coag (PPP) [Time] 28.9 s High 11.7-14.9 [facility] [place] Comment on above: Performed By: #### P HO, CDP, RA, PT, SED, BMPX, FREDA, MG, LD, CRP, FEBC, B12FOL, PTT, C4, CCPAB, FERI, IOCAL, CORTI, CK, C3, REJEC #### [facility] [address] [place], [place] [id number] Report Writer: Jasbir Montalvo MD Protime-INRon 12-02-2023 INR Coag (PPP) [Relative time] 2.8 {INR} [facility] Comment on above: Therapeutic Range: Moderate Anticoagulant Intensity: INR = 2.0-3.0 High Anticoagulant Intensity: INR = 2.5-3.5 Interpretation and review of laboratory results Abnormal [facility] PT Coag (PPP) [Time] 28.9 s High [facility] Aldolaseon 12-01-2023 Aldolase 6.9 U/L Normal 1.2-7.6 [facility] [place] Comment on above: Result Comment: (NOT E) This specimen is Hemolyzed. This may cause the results to be falsely increased. REFERENCE INTERVAL: Aldolase Access complete set of age- and/or gender-specific reference intervals for this test in the [employer] [facility] Test Directory ([employer]). Performed By: [employer] [address] [place] [id number] [employer] Weigher: Uriah Prasad MD, PhD CLIA Number: [id number] Performed By: #### P HO, CDP, RA, PT, SED, BMPX, FREDA, MG, LD, CRP, FEBC, B12FOL, PTT, C4, CCPAB, FERI, IOCAL, CORTI, CK, C3, REJEC #### [place] [id number] Report Writer: Jasbir Montalvo MD Aldolase [Catalytic activity/Vol] 6.9 mU/mL 1.2 - 7.6 U/L [facility] Comment on above: (NOTE) This specimen is Hemolyzed. This may cause the results to be falsely increased. REFERENCE INTERVAL: Aldolase Access complete set of age- and/or gender-specific reference intervals for this test in the [employer] [facility] Test Directory ([employer]). Performed By: [employer] [address] [place] [id number] [employer] We[employer]her: Uriah Prasad MD, PhD CLIA Number: [id number] [facility] Anti CCPon 12-01-2023 Anti CCP 1.5 U/mL Normal 0.0-7.0 [facility] [place] Comment on above: Result Comment: Reference Range: <7.0 Negative 7.0-10.0 Equivocal >10.0 Positive Performed By: #### P HO, CDP, RA, PT, SED, BMPX, FREDA, MG, LD, CRP, FEBC, B12FOL, PTT, C4, CCPAB, FERI, IOCAL, CORTI, CK, C3, REJEC #### [address] [address] Report Writer: Jasbir Montalvo MD Basic Metab w/rfx MGon 12-01 Anion gap [Moles/Vol] 10 mmol/L Normal 9-17 [facility] [place] Comment on above: Performed By: #### P HO, CDP, RA, PT, SED, BMPX, FREDA, MG, LD, CRP, FEBC, B12FOL, PTT, C4, CCPAB, FERI, IOCAL, CORTI, CK, C3, REJEC #### [address] [address] Report Writer: Jasbir Montalvo MD Calcium [Mass/Vol] 8.9 mg/dL Normal 8.6-10.4 [facility] [place] Comment on above: Performed By: #### P HO, CDP, RA, PT, SED, BMPX, FREDA, MG, LD, CRP, FEBC, B12FOL, PTT, C4, CCPAB, FERI, IOCAL, CORTI, CK, C3, REJEC #### [address] [address] Report Writer: Jasbir Montalvo MD Chloride [Moles/Vol] 108 mmol/L High 98-107 [facility] [place] Comment on above: Performed By: #### P HO, CDP, RA, PT, SED, BMPX, FREDA, MG, LD, CRP, FEBC, B12FOL, PTT, C4, CCPAB, FERI, IOCAL, CORTI, CK, C3, REJEC #### [address] [address] Report Writer: Jasbir Montalvo MD CO2 [Moles/Vol] 22 mmol/L Normal 20-31 [facility] [place] Comment on above: Performed By: #### P HO, CDP, RA, PT, SED, BMPX, FREDA, MG, LD, CRP, FEBC, B12FOL, PTT, C4, CCPAB, FERI, IOCAL, CORTI, CK, C3, REJEC #### [email or web address] [address] [place] [address] Report Writer: Jasbir Montalvo MD Creatinine [Mass/Vol] 1.6 mg/dL High 0.7-1.2 [facility] [place] Comment on above: Performed By: #### P HO, CDP, RA, PT, SED, BMPX, FREDA, MG, LD, CRP, FEBC, B12FOL, PTT, C4, CCPAB, FERI, IOCAL, CORTI, CK, C3, REJEC #### [address] [address] Report Writer: Jasbir Montalvo MD GFR/1.73 sq M.predicted among non-blacks MDRD (S/P/Bld) [Vol rate/Area] 48 mL/min/{1.73_m2} Low >60 [facility] [place] Comment on above: Result Comment: These results [...] FERI, IOCAL, CORTI, CK, C3, REJEC #### [facility] [email or web address] [address] [place] [address] Report Writer: Jasbir Montalvo MD Glucose [Mass/Vol] 144 mg/dL High 70-99 [facility] [place] Comment on above: Performed By: #### P HO, CDP, RA, PT, SED, BMPX, FREDA, MG, LD, CRP, FEBC, B12FOL, PTT, C4, CCPAB, FERI, IOCAL, CORTI, CK, C3, REJEC #### [address] [id number] Report Writer: Jasbir Montalvo MD Potassium [Moles/Vol] 3.8 mmol/L Normal 3.7-5.3 [facility] [place] Comment on above: Performed By: #### P HO, CDP, RA, PT, SED, BMPX, FREDA, MG, LD, CRP, FEBC, B12FOL, PTT, C4, CCPAB, FERI, IOCAL, CORTI, CK, C3, REJEC #### [address] [address] Report Writer: Jasbir Montalvo MD Sodium [Moles/Vol] 140 mmol/L Normal 135-144 [facility] [place] Comment on above: Performed By: #### P HO, CDP, RA, PT, SED, BMPX, FREDA, MG, LD, CRP, FEBC, B12FOL, PTT, C4, CCPAB, FERI, IOCAL, CORTI, CK, C3, REJEC #### [address] [address] Report Writer: Jasbir Montalvo MD Urea nitrogen [Mass/Vol] 39 mg/dL High 8- [facility] [place] Comment on above: Performed By: #### P HO, CDP, RA, PT, SED, BMPX, FREDA, MG, LD, CRP, FEBC, B12FOL, PTT, C4, CCPAB, FERI, IOCAL, CORTI, CK, C3, REJEC #### [address] [id number] Report Writer: Jasbir Montalvo MD Basic Metabolic Panel w/ Ref sarah to MGon 12-01-2023 Anion gap [Moles/Vol] 10 mmol/L 9 - 17 mmol/L [facility] Calcium [Mass/Vol] 8.9 mg/dL 8.6 - 10. 4 mg/dL [facility] Chloride [Moles/Vol] 108 mmol/L High 98 - 107 mmol/L [facility] CO2 [Moles/Vol] 22 mmol/L 20 - 31 mmol/L [facility] Creatinine [Mass/Vol] 1.6 mg/dL High 0.7 - 1.2 mg/dL [facility] GFR/1.73 sq M.predicted MDRD (S/P/Bld) [Vol rate/Area] 48 mL/min/{1.73_m2} Low - PINF [facility] Comment on above: These results are not [...] 144 mg/dL High 70 - 99 mg/dL [facility] Interpretation and review of laboratory results Abnormal [facility] Potassium [Moles/Vol] 3.8 mmol/L 3.7 - 5.3 mmol/L [facility] Sodium [Moles/Vol] 140 mmol/L 135 - 144 mmol/L [facility] Urea nitrogen [Mass/Vol] 39 mg/dL High 8 - 23 mg/dL [facility] CBC with Auto Differentialon 12-01-2023 Basophils (Bld) [#/Vol] 0.08 10*3/uL [facility] Basophils/100 WBC (Bld) 1 % 0 - 2 % [facility] Eosinophils (Bld) [#/Vol] 0.37 10*3/uL [facility] Eosinophils/100 WBC (Bld) 3 % 1 - 4 % [facility] Erythrocyte distribution width (RBC) [Ratio] 14.4 % 11.8 - 14.4 % [facility] Hematocrit (Bld) [Volume fraction] 46.3 % 40.7 - 50.3 % [facility] Hemoglobin (Bld) [Mass/Vol] 14.6 g/dL 13.0 - 17.0 g/dL [facility] Immature granulocytes (Bld) [#/Vol] 0.04 10*3/uL [facility] Immature granulocytes/100 WBC (Bld) 0 % 0 [facility] Lymphocytes/100 WBC (Bld) 25 % 24 - 43 % [facility] Lymphocytes/100 WBC (Bld) 2.76 % [facility] MCH (RBC) [Entitic mass] 31.2 pg 25.2 - 33.5 pg [facility] MCHC (RBC) [Mass/Vol] 31.5 g/dL 28.4 - 34.8 g/dL [facility] MCV (RBC) [Entitic vol] 98.9 fL 82.6 - 102.9 fL [facility] Monocytes/100 WBC (Bld) 8 % 3 - 12 % [facility] Monocytes/100 WBC (Bld) 0.82 % [facility] Neutrophils/100 WBC (Bld) 63 % 36 - 65 % [facility] Nucleated RBC/100 WBC (Bld) [Ratio] 0.0 % 0.0 per 100 WBC [facility] Platelet mean volume (Bld) [Entitic vol] 10.4 fL 8.1 - 13.5 fL [facility] Platelets (Bld) [#/Vol] 223 10*3/uL [facility] RBC (Bld) [#/Vol] 4.68 10*6/uL 4.21 - 5.7 7 m/uL [facility] Segmented neutrophils/100 WBC (Bld) 6.78 % [facility] WBC other (Bld) [#/Vol] 10.9 [facility] CBC with Diffon 12-01-2023 Abs. Basophil 0.08 k/uL Normal 0.00-0.20 [facility] [place] Comment on above: Performed By: #### P HO, CDP, RA, PT, SED, BMPX, FREDA, MG, LD, CRP, FEBC, B12FOL, PTT, C4, CCPAB, FERI, IOCAL, CORTI, CK, C3, REJEC #### [email or web address] [facility] [place] [id number] Report Writer: Jasbir Montalvo MD Abs.Imm.Granulocyte 0.04 k/uL Normal 0.00-0.30 [facility] [place] Comment on above: Performed By: #### P HO, CDP, RA, PT, SED, BMPX, FREDA, MG, LD, CRP, FEBC, B12FOL, PTT, C4, CCPAB, FERI, IOCAL, CORTI, CK, C3, REJEC #### [address] [address] Report Writer: Jasbir Montalvo MD Abs.Neutrophil (Seg) 6.78 k/uL Normal 1.50-8.10 [facility] [place] Comment on above: Performed By: #### P HO, CDP, RA, PT, SED, BMPX, FREDA, MG, LD, CRP, FEBC, B12FOL, PTT, C4, CCPAB, FERI, IOCAL, CORTI, CK, C3, REJEC #### [address] [address] Report Writer: Jasbir Montalvo MD Basophils/100 WBC (Bld) 1 % Normal 0-2 [facility] [place] Comment on above: Performed By: #### P HO, CDP, RA, PT, SED, BMPX, FREDA, MG, LD, CRP, FEBC, B12FOL, PTT, C4, CCPAB, FERI, IOCAL, CORTI, CK, C3, REJEC #### [address] [address] Report Writer: Jasbir Montalvo MD Eosinophils (Bld) [#/Vol] 0.37 10*3/uL Normal 0.00-0.44 [facility] [place] Comment on above: Performed By: #### P HO, CDP, RA, PT, SED, BMPX, FREDA, MG, LD, CRP, FEBC, B12FOL, PTT, C4, CCPAB, FERI, IOCAL, CORTI, CK, C3, REJEC #### [address] [address] Report Writer: Jasbir Montalvo MD Eosinophils/100 WBC (Bld) 3 % Normal 1-4 [facility] [place] Comment on above: Performed By: #### P HO, CDP, RA, PT, SED, BMPX, FREDA, MG, LD, CRP, FEBC, B12FOL, PTT, C4, CCPAB, FERI, IOCAL, CORTI, CK, C3, REJEC #### [address] [address] Report Writer: Jasbir Montalvo MD Erythrocyte distribution width (RBC) [Ratio] 14.4 % Normal 11.8-14.4 [facility] [place] Comment on above: Performed By: #### P HO, CDP, RA, PT, SED, BMPX, FREDA, MG, LD, CRP, FEBC, B12FOL, PTT, C4, CCPAB, FERI, IOCAL, CORTI, CK, C3, REJEC #### [address] [address] Report Writer: Jasbir Montalvo MD Hematocrit (Bld) [Volume fraction] 46.3 % Normal 40.7-50.3 [facility] [place] Comment on above: Performed By: #### P HO, CDP, RA, PT, SED, BMPX, FREDA, MG, LD, CRP, FEBC, B12FOL, PTT, C4, CCPAB, FERI, IOCAL, CORTI, CK, C3, REJEC #### [address] [address] Report Writer: Jasbir Montalvo MD Hemoglobin (Bld) [Mass/Vol] 14.6 g/dL Normal 13.0-17.0 [facility] [place] Comment on above: Performed By: #### P HO, CDP, RA, PT, SED, BMPX, FREDA, MG, LD, CRP, FEBC, B12FOL, PTT, C4, CCPAB, FERI, IOCAL, CORTI, CK, C3, REJEC #### [address] [address] Report Writer: Jasbir Montalvo MD Immature granulocytes/100 WBC (Bld) 0 % Normal 0 [facility] [place] Comment on above: Performed By: #### P HO, CDP, RA, PT, SED, BMPX, FREDA, MG, LD, CRP, FEBC, B12FOL, PTT, C4, CCPAB, FERI, IOCAL, CORTI, CK, C3, REJEC #### [address] [address] Report Writer: Jasbir Montalvo MD Lymphocytes (Bld) [#/Vol] 2.76 10*3/uL Normal 1.10-3.70 [facility] [place] Comment on above: Performed By: #### P HO, CDP, RA, PT, SED, BMPX, FREDA, MG, LD, CRP, FEBC, B12FOL, PTT, C4, CCPAB, FERI, IOCAL, CORTI, CK, C3, REJEC #### [address] [address] Report Writer: Jasbir Montalvo MD Lymphocytes/100 WBC (Bld) 25 % Normal 24-43 [facility] [place] Comment on above: Performed By: #### P HO, CDP, RA, PT, SED, BMPX, FREDA, MG, LD, CRP, FEBC, B12FOL, PTT, C4, CCPAB, FERI, IOCAL, CORTI, CK, C3, REJEC #### [place] [id number] Report Writer: Jasbir Montalvo MD MCH (RBC) [Entitic mass] 31.2 pg Normal 25.2-33.5 [facility] [place] Comment on above: Performed By: #### P HO, CDP, RA, PT, SED, BMPX, FREDA, MG, LD, CRP, FEBC, B12FOL, PTT, C4, CCPAB, FERI, IOCAL, CORTI, CK, C3, REJEC #### [address] [address] Report Writer: Jasbir Montalvo MD MCHC (RBC) [Mass/Vol] 31.5 g/dL Normal 28.4-34.8 [facility] [place] Comment on above: Performed By: #### P HO, CDP, RA, PT, SED, BMPX, FREDA, MG, LD, CRP, FEBC, B12FOL, PTT, C4, CCPAB, FERI, IOCAL, CORTI, CK, C3, REJEC #### [address] [id number] Report Writer: Jasbir Montalvo MD MCV (RBC) [Entitic vol] 98.9 fL Normal 82.6-102.9 [facility] [place] Comment on above: Performed By: #### P HO, CDP, RA, PT, SED, BMPX, FREDA, MG, LD, CRP, FEBC, B12FOL, PTT, C4, CCPAB, FERI, IOCAL, CORTI, CK, C3, REJEC #### [place] [id number] Report Writer: Jasbir Montalvo MD Monocytes (Bld) [#/Vol] 0.82 10*3/uL Normal 0.10-1.20 [facility] [place] Comment on above: Performed By: #### P HO, CDP, RA, PT, SED, BMPX, FREDA, MG, LD, CRP, FEBC, B12FOL, PTT, C4, CCPAB, FERI, IOCAL, CORTI, CK, C3, REJEC #### [address] [address] Report Writer: Jasbir Montalvo MD Monocytes/100 WBC (Bld) 8 % Normal 3-12 [facility] [place] Comment on above: Performed By: #### P HO, CDP, RA, PT, SED, BMPX, FREDA, MG, LD, CRP, FEBC, B12FOL, PTT, C4, CCPAB, FERI, IOCAL, CORTI, CK, C3, REJEC #### [address] [address] Report Writer: Jasbir Montalvo MD Neutrophil (Seg) 63 % Normal 36-65 [facility] Comment on above: Performed By: #### P HO, CDP, RA, PT, SED, BMPX, FREDA, MG, LD, CRP, FEBC, B12FOL, PTT, C4, CCPAB, FERI, IOCAL, CORTI, CK, C3, REJEC #### [address] [id number] Report Writer: Jasbir Montalvo MD NRBC Automated 0.0 per 100 WBC Normal 0.0 [facility] [place] Comment on above: Performed By: #### P HO, CDP, RA, PT, SED, BMPX, RFEDA, MG, LD, CRP, FEBC, B12FOL, PTT, C4, CCPAB, FERI, IOCAL, CORTI, CK, C3, REJEC #### [place] [id number] Report Writer: Jasbir Montalvo MD Platelet mean volume (Bld) [Entitic vol] 10.4 fL Normal 8.1-13.5 [facility] [place] Comment on above: Performed By: #### P HO, CDP, RA, PT, SED, BMPX, FREDA, MG, LD, CRP, FEBC, B12FOL, PTT, C4, CCPAB, FERI, IOCAL, CORTI, CK, C3, REJEC #### [address] [id number] Report Writer: Jasbir Montalvo MD Platelets (Bld) [#/Vol] 223 10*3/uL Normal 138-453 [facility] [place] Comment on above: Performed By: #### P HO, CDP, RA, PT, SED, BMPX, FREDA, MG, LD, CRP, FEBC, B12FOL, PTT, C4, CCPAB, FERI, IOCAL, CORTI, CK, C3, REJEC #### [address] [id number] Report Writer: Jasbir Montalvo MD RBC (Bld) [#/Vol] 4.68 10*6/uL Normal 4.21-5.77 [facility] [place] Comment on above: Performed By: #### P HO, CDP, RA, PT, SED, BMPX, FREDA, MG, LD, CRP, FEBC, B12FOL, PTT, C4, CCPAB, FERI, IOCAL, CORTI, CK, C3, REJEC #### [facility] [email or web address] [address] [place] [id number] Report Writer: Jasbir Montalvo MD WBC (Bld) [#/Vol] 10.9 10*3/uL Normal 3.5-11.3 [facility] [place] Comment on above: Performed By: #### P HO, CDP, RA, PT, SED, BMPX, FREDA, MG, LD, CRP, FEBC, B12FOL, PTT, C4, CCPAB, FERI, IOCAL, CORTI, CK, C3, REJEC #### [facility] [email or web address] [address] [place] [id number] Report Writer: Jasbir Montalvo MD CT CERVICAL SPINE WO [...] HISTORY: rule out myelopathy, radiculopathy. cannot have SPECIAL EVENT ASSISTANT PROVIDED HISTORY: rule out myelopathy, radiculopathy. cannot [...] Erica Garcia MD 12/01/23 Final result Normal [facility] [place] CT Cervical spine WO contras ton 12-01-2023 Canal effacement at C6-7. [facility] CONSOLIDATED EXAMINATION: CT OF THE CERVICAL SPINE [...] HISTORY: rule out myelopathy, radiculopathy. cannot have SPECIAL EVENT ASSISTANT PROVIDED HISTORY: rule out myelopathy, radiculopathy. cannot [...] C7-T1 facet arthropathy.. Mild bilateral foraminal narrowing [facility] RIS CONSOLIDATED Erica Garcia MD - 12/01/2023 [...] HISTORY: rule out myelopathy, radiculopathy. cannot have SPECIAL EVENT ASSISTANT PROVIDED HISTORY: rule out myelopathy, radiculopathy. cannot [...] foraminal narrowing IMPRESSION: Canal effacement at C6-7. [facility] Radiology Study observation (narrative) [facility] [employer] Recommend CT Cervical spine WO contras tOrdered By: Erica Garcia on 12-01-2023 [facility] Work Phone: CYCLIC CITRUL PEPTIDE ANTIBO DY, IGGon 12-01-2023 Cyclic citrullinated peptide Ab IA Qn (S) 1.5 U/mL 0.0 - 7.0 U/mL [facility] Comment on above: Reference Range: <7.0 Negative 7.0-10.0 Equivocal >10.0 Positive [facility] [employer] [facility] [place] MODIFIED BARIUM SWALLOW W VIDEOon 12-01-2023 [place] MODIFIED BARIUM SWALLOW W VIDEO EXAMINATION: MODIFIED BARIUM SWALLOW WAS PERFORMED IN CONJUNCTION WITH [employer] TECHNIQUE: Under fluoroscopic evaluation cineradiography/videoradio graphy recordings were performed in conjunction with the speech-language pathologist (VALET PARKER). Various liquid, solid and/or semi-solid barium preparations [...] Micah Davis MD 12/01/23 Final result Normal [facility] [place] 1. Trace penetration without aspiration with the thin liquid substance by straw. 2. No penetration or aspiration with the above administered substances. Please see separate speech pathology report for full discussion of findings and recommendations. [facility] CONSOL[facility] EXAMINATION: MODIFIED BARIUM SWALLOW WAS PERFORMED IN CONJUNCTION WITH [employer] PATHOLOG[employer] SERVICES TECHNIQUE: Under fluoroscopic evaluation cineradiography/videoradio graphy recordings were performed in conjunction with the speech-language pathologist (VALET PARKER). Various liquid, solid and/or semi-solid barium preparations [...] with the thin liquid substance by straw. [facility] RIS CONSOLIDATED Micah Davis MD - 12/01/2023 EXAMINATION: MODIFIED BARIUM SWALLOW WAS PERFORMED IN CONJUNCTION WITH SPEECH PATHOLOGY SERVICES TECHNIQUE: Under fluoroscopic evaluation cineradiography/videoradio graphy recordings were performed in conjunction with the speech-language pathologist (VALET PARKER). Various liquid, solid and/or semi-solid barium preparations [...] for full discussion of findings and recommendations. [facility] Radiology Study observation (narrative) [facility] Recommend [place] MODIFIED BARIUM SWALLOW W VIDEOOrdered By: Micah Davis on 12-01-2023 [facility] Work Phone: Glucose,Whole Bloodon 2023 Glucose [Mass/Vol] 168 mg/dL High 75-110 [facility] [place] Glucose [Mass/Vol] 108 mg/dL Normal 75-110 [facility] [place] Glucose [Mass/Vol] 226 mg/dL High 75-110 [facility] [place] Glucose [Mass/Vol] 150 mg/dL High 75-110 [facility] [place] Glucose [Mass/Vol] 148 mg/dL High 75-110 [facility] [place] POC Glucose Fingerstickon Glucose [Mass/Vol] 168 mg/dL High 75 - 110 mg/dL [facility] Interpretation and review of laboratory results Abnormal [facility] Glucose [Mass/Vol] 108 mg/dL 75 - 110 mg/dL [facility] Glucose [Mass/Vol] 226 mg/dL High 75 - 110 mg/dL [facility] Interpretation and review of laboratory results Abnormal [facility] Glucose [Mass/Vol] 150 mg/dL High 75 - 110 mg/dL [facility] Interpretation and review of laboratory results Abnormal [facility] Glucose [Mass/Vol] 148 mg/dL High 75 - 110 mg/dL [facility] Interpretation and review of laboratory results Abnormal [facility] PSA Screeningon 12-01-2023 Prostate specific Ag [Mass/Vol] 1.50 ng/mL 0.00 - 4.00 ng/mL [facility] Comment on above: The [employer] ECLIA as say is used. Results obtained with different assay methods cannot be used interchangeably. [facility] PSA, Screeningon 12-01-2023 Prostatic Spec. Ag 1.50 ng/mL Normal 0.00-4.00 [facility] Comment on above: Result Comment: The Saray ECLIA assay is used. Results obtained with different assay methods cannot be used interchangeably. Performed By: #### P HO, CDP, RA, PT, SED, BMPX, FREDA, MG, LD, CRP, FEBC, B12FOL, PTT, C4, CCPAB, FERI, IOCAL, CORTI, CK, C3, REJEC #### [employer] [address] [place] [id number] Report Writer: Jasbir Montalvo MD PTon 12-01-2023 INR Coag (PPP) [Relative time] 2.8 {INR} Normal [facility] Comment on above: Result Comment: Therapeutic Range: Moderate Anticoagulant Intensity: INR = 2.0-3.0 High Anticoagulant Intensity: INR = 2.5-3.5 Performed By: #### P HO, CDP, RA, PT, SED, BMPX, FREDA, MG, LD, CRP, FEBC, B12FOL, PTT, C4, CCPAB, FERI, IOCAL, CORTI, CK, C3, REJEC #### [employer] [address] [place] [id number] Report Writer: Jasbir Montalvo MD PT Coag (PPP) [Time] 28.5 s High 11.7-14.9 [facility] Comment on above: Performed By: #### P HO, CDP, RA, PT, SED, BMPX, FREDA, MG, LD, CRP, FEBC, B12FOL, PTT, C4, CCPAB, FERI, IOCAL, CORTI, CK, C3, REJEC #### [employer] [address] [place], [place] [id number] Report Writer: Jasbir Montalvo MD [employer]time-INRon 12-01-2023 INR Coag (PPP) [Relative time] 2.8 {INR} [facility] [facility] Comment on above: Therapeutic Range: Moderate Anticoagulant Intensity: INR = 2.0-3.0 High Anticoagulant Intensity: INR = 2.5-3.5 Interpretation and review of laboratory results Abnormal [facility] PT Coag (PPP) [Time] 28.5 s High [facility] Troponinon 12-01-2023 Troponin, High Sens 23 ng/L High 0-22 [facility] Comment on above: Result Comment: High Sensitivity Troponin values cannot be compared with other Troponin methodologies. Performed By: #### P HO, CDP, RA, PT, SED, BMPX, FREDA, MG, LD, CRP, FEBC, B12FOL, PTT, C4, CCPAB, FERI, IOCAL, CORTI, CK, C3, REJEC #### [employer] [facility] [place] [address] Report Writer: Jasbir Montalvo MD Interpretation and review of laboratory results Abnormal [facility] Troponin I.cardiac High sensitivity method [Mass/Vol] 23 ng/L High 0 - 22 ng/L [facility] Comment on above: High Sensitivity Tro ponin values cannot be compared with other Troponin methodologies. [facility] APTTon 11-30-2023 aPTT Coag (Bld) [Time] 38.4 s High 23.0-36.5 [facility] Comment on above: Result Comment: IV Heparin Therapy Range: 66.0-92.0 sec Performed By: #### P HO, CDP, RA, PT, SED, BMPX, FREDA, MG, LD, CRP, FEBC, B12FOL, PTT, C4, CCPAB, FERI, IOCAL, CORTI, CK, C3, REJEC ####[employer] [place] [address] Lab Director: Jasbir Montalvo MD aPTT Coag (Bld) [Time] 38.4 s High [employer] [facility] Recommend Comment on above: IV Heparin Therapy Range: 66.0-92.0 sec B12/Folate Panelon 4 Cobalamin (Vitamin B12) [Mass/Vol] 397 pg/mL Normal 232-1245 [facility] Comment on above: Performed By: #### P HO, CDP, RA, PT, SED, BMPX, FREDA, MG, LD, CRP, FEBC, B12FOL, PTT, C4, CCPAB, FERI, IOCAL, CORTI, CK, C3, REJEC ####[employer] [address] [place], [place] [id number] Lab Director: Jasbir Montalvo MD Folic Acid 6.2 ng/mL Normal >4.8 [facility] Comment on above: Performed By: #### P HO, CDP, RA, PT, SED, BMPX, FREDA, MG, LD, CRP, FEBC, B12FOL, PTT, C4, CCPAB, FERI, IOCAL, CORTI, CK, C3, REJEC ####[facility] [address] [place], [place] [id number] lab Director: Jasbir Montlavo MD BLOOD GAS, VENOUSon 11-30-19 24 Carboxyhemoglobin (Bld) [Mass fraction] 1.6 % 0 - 5 % [facility] Comment on above: Reference Range: Non-Smokers 0-2% Average Smoker 2-4% Heavy Smoker <10% HCO3 (Bld) [Moles/Vol] 26.1 mmol/L 24 - 30 mmol/L [facility] Recommend Interpretation and review of laboratory results Abnormal [facility] Negative Base Excess, Pop 1.1 mmol/L 0.0 - 2.0 mmol/L [facility] Recommend Oxygen saturation in Blood 84.3 % 60.0 - 85.0 % [facility] Oxygen/Inspired gas Respiratory system --on ventilator INFORMATION NOT PROVIDED [facility] Recommend pCO2, Pop 55.2 High [facility] pH, Pop 7.297 Low 7.320 - 7.420 [facility] Recommend pO2, Pop 55.2 High [facility] Basic Metab w/rfx MGon 11-30 Glucose [Mass/Vol] 49 mg/dL Low 70-99 [facility] Comment on above: Performed By: #### P HO, CDP, RA, PT, SED, BMPX, FREDA, MG, LD, CRP, FEBC, B12FOL, PTT, C4, CCPAB, FERI, IOCAL, CORTI, CK, C3, REJEC ####[facility] [address] [place] [address] [id number] lab Director: Jasbir Montalvo MD Anion gap [Moles/Vol] 11 mmol/L Normal 9-17 [facility] Comment on above: Performed By: #### P HO, CDP, RA, PT, SED, BMPX, FREDA, MG, LD, CRP, FEBC, B12FOL, PTT, C4, CCPAB, FERI, IOCAL, CORTI, CK, C3, REJEC ####[facility] [address] [place] [address] [id number] lab Director: Jasbir Montalvo MD Calcium [Mass/Vol] 8.9 mg/dL Normal 8.6-10.4 [facility] Comment on above: Performed By: #### P HO, CDP, RA, PT, SED, BMPX, FREDA, MG, LD, CRP, FEBC, B12FOL, PTT, C4, CCPAB, FERI, IOCAL, CORTI, CK, C3, REJEC ####[facility] [address] [place] [address] [id number] Lab Director: Jasbir Montalvo MD Chloride [Moles/Vol] 114 mmol/L High 98-107 [facility] Comment on above: Performed By: #### P HO, CDP, RA, PT, SED, BMPX, FREDA, MG, LD, CRP, FEBC, B12FOL, PTT, C4, CCPAB, FERI, IOCAL, CORTI, CK, C3, REJEC ####[address] [address] [facility] Director: Jasbir Montalvo MD CO2 [Moles/Vol] 21 mmol/L Normal 20-31 [facility] Comment on above: Performed By: #### P HO, CDP, RA, PT, SED, BMPX, FREDA, MG, LD, CRP, FEBC, B12FOL, PTT, C4, CCPAB, FERI, IOCAL, CORTI, CK, C3, REJEC ####[address] [id number] [facility] Director: Jasbir Montalvo MD Creatinine [Mass/Vol] 1.5 mg/dL High 0.7-1.2 [facility] Comment on above: Performed By: #### P HO, CDP, RA, PT, SED, BMPX, FREDA, MG, LD, CRP, FEBC, B12FOL, PTT, C4, CCPAB, FERI, IOCAL, CORTI, CK, C3, REJEC ####[address] [id number] [facility] Director: Jasbir Montalvo MD GFR/1.73 sq M.predicted among non-blacks MDRD (S/P/Bld) [Vol rate/Area] 52 mL/min/{1.73_m2} Low >60 [facility] Comment on above: Result Comment: These results [...] CCPAB, FERI, IOCAL, CORTI, CK, C3, REJEC ####[address] [place], [place] [id number] Lab Director: Jasbir Montalvo MD Potassium [Moles/Vol] 3.7 mmol/L Normal 3.7-5.3 [facility] Comment on above: Performed By: #### P HO, CDP, RA, PT, SED, BMPX, FREDA, MG, LD, CRP, FEBC, B12FOL, PTT, C4, CCPAB, FERI, IOCAL, CORTI, CK, C3, REJEC ####[facility] [address] [place], [place] [id number] Lab Director: Jasbir Montalvo MD Sodium [Moles/Vol] 146 mmol/L High 135-144 [facility] Comment on above: Performed By: #### P HO, CDP, RA, PT, SED, BMPX, FREDA, MG, LD, CRP, FEBC, B12FOL, PTT, C4, CCPAB, FERI, IOCAL, CORTI, CK, C3, REJEC ####[address] [place], [place] [id number] lab Director: Jasbir Montalvo MD Urea nitrogen [Mass/Vol] 37 mg/dL High 8-23 [facility] Comment on above: Performed By: #### P HO, CDP, RA, PT, SED, BMPX, FREDA, MG, LD, CRP, FEBC, B12FOL, PTT, C4, CCPAB, FERI, IOCAL, CORTI, CK, C3, REJEC ####[address] [place], [place] [phone] lab Director: Jasbir Montalvo MD Basic Metabolic Panel w/ Ref sarah to MGon 11-30-2023 Anion gap [Moles/Vol] 11 mmol/L 9 - 17 mmol/L [facility] Calcium [Mass/Vol] 8.9 mg/dL 8.6 - 10. 4 mg/dL [facility] Chloride [Moles/Vol] 114 mmol/L High 98 - 107 mmol/L [facility] CO2 [Moles/Vol] 21 mmol/L 20 - 31 mmol/L [facility] Creatinine [Mass/Vol] 1.5 mg/dL High 0.7 - 1.2 mg/dL [facility] GFR/1.73 sq M.predicted MDRD (S/P/Bld) [Vol rate/Area] 52 mL/min/{1.73_m2} Low - PINF [facility] Comment on above: These results are not [...] 49 mg/dL Low 70 - 99 mg/dL [facility] Interpretation and review of laboratory results Abnormal [facility] Potassium [Moles/Vol] 3.7 mmol/L 3.7 - 5.3 mmol/L [facility] Sodium [Moles/Vol] 146 mmol/L High 135 - 144 mmol/L [facility] Urea nitrogen [Mass/Vol] 37 mg/dL High 8 - 23 mg/dL [facility] C-Reactive Proteinon 024 CRP [Mass/Vol] 4.8 mg/L Normal 0.0-5.0 [facility] Comment on above: Performed By: #### P HO, CDP, RA, PT, SED, BMPX, FREDA, MG, LD, CRP, FEBC, B12FOL, PTT, C4, CCPAB, FERI, IOCAL, CORTI, CK, C3, REJEC #### [facility] [address] [place], [place] [id number] Report Writer: Jasbir Montalvo MD CRP High sensitivity method [Mass/Vol] 4.8 mg/L 0.0 - 5.0 mg/L [facility] C3on 11-30-2023 C3 146 mg/dL Normal 90-180 [facility] Comment on above: Performed By: #### P HO, CDP, RA, PT, SED, BMPX, FREDA, MG, LD, CRP, FEBC, B12FOL, PTT, C4, CCPAB, FERI, IOCAL, CORTI, CK, C3, REJEC #### [employer] [facility] [place] [address] Report Writer: Jasbir Montalvo MD C3 COMPLEMENTon 11-30-2023 Complement C3 [Mass/Vol] 146 mg/dL 90 - 180 mg/dL [facility] C4on 11-30-2023 C4 24 mg/dL Normal 10-40 [facility] Comment on above: Performed By: #### P HO, CDP, RA, PT, SED, BMPX, FREDA, MG, LD, CRP, FEBC, B12FOL, PTT, C4, CCPAB, FERI, IOCAL, CORTI, CK, C3, REJEC #### [facility] [place] [address] Report Writer: Jasbir Montalvo MD C4 COMPLEMENTon 11-30-2023 Complement C4 [Mass/Vol] 24 mg/dL 10 - 40 mg/dL [facility] CBC with Auto Differentialon 11-30-2023 Basophils (Bld) [#/Vol] 0.08 10*3/uL [facility] Basophils/100 WBC (Bld) 1 % 0 - 2 % [facility] Eosinophils (Bld) [#/Vol] 0.31 10*3/uL [facility] Eosinophils/100 WBC (Bld) 3 % 1 - 4 % [facility] Erythrocyte distribution width (RBC) [Ratio] 14.2 % 11.8 - 14.4 % [facility] Hematocrit (Bld) [Volume fraction] 49.3 % 40.7 - 50.3 % [facility] Hemoglobin (Bld) [Mass/Vol] 15.4 g/dL 13.0 - 17.0 g/dL [facility] Immature granulocytes (Bld) [#/Vol] [facility] Immature granulocytes/100 WBC (Bld) 0 % 0 [facility] Lymphocytes/100 WBC (Bld) 26 % 24 - 43 % [facility] Lymphocytes/100 WBC (Bld) 2.64 % [facility] MCH (RBC) [Entitic mass] 31.2 pg 25.2 - 33.5 pg [facility] MCHC (RBC) [Mass/Vol] 31.2 g/dL 28.4 - 34.8 g/dL [facility] MCV (RBC) [Entitic vol] 99.8 fL 82.6 - 102.9 fL [facility] Monocytes/100 WBC (Bld) 7 % 3 - 12 % [facility] Monocytes/100 WBC (Bld) 0.74 % [facility] Neutrophils/100 WBC (Bld) 63 % 36 - 65 % [facility] Nucleated RBC/100 WBC (Bld) [Ratio] 0.0 % 0.0 per 100 WBC [facility] Platelet mean volume (Bld) [Entitic vol] 10.0 fL 8.1 - 13.5 fL [facility] Platelets (Bld) [#/Vol] 214 10*3/uL [facility] RBC (Bld) [#/Vol] 4.94 10*6/uL 4.21 - 5.7 7 m/uL [facility] Segmented neutrophils/100 WBC (Bld) 6.30 % [facility] WBC other (Bld) [#/Vol] 10.1 [facility] CBC with Diffon 11-30-2023 Abs. Basophil 0.08 k/uL Normal 0.00-0.20 [facility] Comment on above: Performed By: #### P HO, CDP, RA, PT, SED, BMPX, FREDA, MG, LD, CRP, FEBC, B12FOL, PTT, C4, CCPAB, FERI, IOCAL, CORTI, CK, C3, REJEC #### [employer] [facility] [place] [address] Report Writer: Jasbir Montalvo MD Abs.Imm.Granulocyte <0.03 Normal 0.00-0.30 [facility] Comment on above: Performed By: #### P HO, CDP, RA, PT, SED, BMPX, FREDA, MG, LD, CRP, FEBC, B12FOL, PTT, C4, CCPAB, FERI, IOCAL, CORTI, CK, C3, REJEC #### [facility] [email or web address] [address] [place] [address] Report Writer: Jasbir Montalvo MD Abs.Neutrophil (Seg) 6.30 k/uL Normal 1.50-8.10 [facility] Comment on above: Performed By: #### P HO, CDP, RA, PT, SED, BMPX, FREDA, MG, LD, CRP, FEBC, B12FOL, PTT, C4, CCPAB, FERI, IOCAL, CORTI, CK, C3, REJEC #### [facility] [email or web address] [address] [place] [address] Report Writer: Jasbir Montalvo MD Basophils/100 WBC (Bld) 1 % Normal 0-2 [facility] Comment on above: Performed By: #### P HO, CDP, RA, PT, SED, BMPX, FREDA, MG, LD, CRP, FEBC, B12FOL, PTT, C4, CCPAB, FERI, IOCAL, CORTI, CK, C3, REJEC #### [facility] [email or web address] [address] [place] [address] Report Writer: Jasbir Montalvo MD Eosinophils (Bld) [#/Vol] 0.31 10*3/uL Normal 0.00-0.44 [facility] Comment on above: Performed By: #### P HO, CDP, RA, PT, SED, BMPX, FREDA, MG, LD, CRP, FEBC, B12FOL, PTT, C4, CCPAB, FERI, IOCAL, CORTI, CK, C3, REJEC #### [facility] [email or web address] [address] [place] [address] Report Writer: aJsbir Montalvo MD Eosinophils/100 WBC (Bld) 3 % Normal 1-4 [facility] Comment on above: Performed By: #### P HO, CDP, RA, PT, SED, BMPX, FREDA, MG, LD, CRP, FEBC, B12FOL, PTT, C4, CCPAB, FERI, IOCAL, CORTI, CK, C3, REJEC #### [address] [address] Report Writer: Jasbir Montalvo MD Erythrocyte distribution width (RBC) [Ratio] 14.2 % Normal 11.8-14.4 [facility] Comment on above: Performed By: #### P HO, CDP, RA, PT, SED, BMPX, FREDA, MG, LD, CRP, FEBC, B12FOL, PTT, C4, CCPAB, FERI, IOCAL, CORTI, CK, C3, REJEC #### [address] [address] Report Writer: Jasbir Montalvo MD Hematocrit (Bld) [Volume fraction] 49.3 % Normal 40.7-50.3 [facility] Comment on above: Performed By: #### P HO, CDP, RA, PT, SED, BMPX, FREDA, MG, LD, CRP, FEBC, B12FOL, PTT, C4, CCPAB, FERI, IOCAL, CORTI, CK, C3, REJEC #### [address] [address] Report Writer: Jasbir Montalvo MD Hemoglobin (Bld) [Mass/Vol] 15.4 g/dL Normal 13.0-17.0 [facility] Comment on above: Performed By: #### P HO, CDP, RA, PT, SED, BMPX, FREDA, MG, LD, CRP, FEBC, B12FOL, PTT, C4, CCPAB, FERI, IOCAL, CORTI, CK, C3, REJEC #### [address] [address] Report Writer: Jasbir Montalvo MD Immature granulocytes/100 WBC (Bld) 0 % Normal 0 [facility] Comment on above: Performed By: #### P HO, CDP, RA, PT, SED, BMPX, FREDA, MG, LD, CRP, FEBC, B12FOL, PTT, C4, CCPAB, FERI, IOCAL, CORTI, CK, C3, REJEC #### [address] [address] Report Writer: Jasbir Montalvo MD Lymphocytes (Bld) [#/Vol] 2.64 10*3/uL Normal 1.10-3.70 [facility] Comment on above: Performed By: #### P HO, CDP, RA, PT, SED, BMPX, FREDA, MG, LD, CRP, FEBC, B12FOL, PTT, C4, CCPAB, FERI, IOCAL, CORTI, CK, C3, REJEC #### [address] [address] Report Writer: Jasbir Montalvo MD Lymphocytes/100 WBC (Bld) 26 % Normal 24-43 [facility] Comment on above: Performed By: #### P HO, CDP, RA, PT, SED, BMPX, FREDA, MG, LD, CRP, FEBC, B12FOL, PTT, C4, CCPAB, FERI, IOCAL, CORTI, CK, C3, REJEC #### [address] [address] Report Writer: Jasbir Montalvo MD MCH (RBC) [Entitic mass] 31.2 pg Normal 25.2-33.5 [facility] Comment on above: Performed By: #### P HO, CDP, RA, PT, SED, BMPX, FREDA, MG, LD, CRP, FEBC, B12FOL, PTT, C4, CCPAB, FERI, IOCAL, CORTI, CK, C3, REJEC #### [address] [address] Report Writer: Jasbir Montalvo MD MCHC (RBC) [Mass/Vol] 31.2 g/dL Normal 28.4-34.8 [facility] Comment on above: Performed By: #### P HO, CDP, RA, PT, SED, BMPX, FREDA, MG, LD, CRP, FEBC, B12FOL, PTT, C4, CCPAB, FERI, IOCAL, CORTI, CK, C3, REJEC #### [address] [address] Report Writer: Jasbir Montalvo MD MCV (RBC) [Entitic vol] 99.8 fL Normal 82.6-102.9 [facility] Comment on above: Performed By: #### P HO, CDP, RA, PT, SED, BMPX, FREDA, MG, LD, CRP, FEBC, B12FOL, PTT, C4, CCPAB, FERI, IOCAL, CORTI, CK, C3, REJEC #### [place] [id number] Report Writer: Jasbir Montalvo MD Monocytes (Bld) [#/Vol] 0.74 10*3/uL Normal 0.10-1.20 [facility] Comment on above: Performed By: #### P HO, CDP, RA, PT, SED, BMPX, FREDA, MG, LD, CRP, FEBC, B12FOL, PTT, C4, CCPAB, FERI, IOCAL, CORTI, CK, C3, REJEC #### [address] [address] Report Writer: Jasbir Montalvo MD Monocytes/100 WBC (Bld) 7 % Normal 3-12 [facility] Comment on above: Performed By: #### P HO, CDP, RA, PT, SED, BMPX, FREDA, MG, LD, CRP, FEBC, B12FOL, PTT, C4, CCPAB, FERI, IOCAL, CORTI, CK, C3, REJEC #### [address] [address] Report Writer: Jasbir Montalvo MD Neutrophil (Seg) 63 % Normal 36-65 [facility] Comment on above: Performed By: #### P HO, CDP, RA, PT, SED, BMPX, FREDA, MG, LD, CRP, FEBC, B12FOL, PTT, C4, CCPAB, FERI, IOCAL, CORTI, CK, C3, REJEC #### [address] [address] Report Writer: Jasbir Montalvo MD NRBC Automated 0.0 per 100 WBC Normal 0.0 [facility] Comment on above: Performed By: #### P HO, CDP, RA, PT, SED, BMPX, FREDA, MG, LD, CRP, FEBC, B12FOL, PTT, C4, CCPAB, FERI, IOCAL, CORTI, CK, C3, REJEC #### [address] [address] Report Writer: Jasbir Montalvo MD Platelet mean volume (Bld) [Entitic vol] 10.0 fL Normal 8.1-13.5 [facility] Comment on above: Performed By: #### P HO, CDP, RA, PT, SED, BMPX, FREDA, MG, LD, CRP, FEBC, B12FOL, PTT, C4, CCPAB, FERI, IOCAL, CORTI, CK, C3, REJEC #### [address] [address] Report Writer: Jasbir Montalvo MD Platelets (Bld) [#/Vol] 214 10*3/uL Normal 138-453 [facility] Comment on above: Performed By: #### P HO, CDP, RA, PT, SED, BMPX, FREDA, MG, LD, CRP, FEBC, B12FOL, PTT, C4, CCPAB, FERI, IOCAL, CORTI, CK, C3, REJEC #### [address] [address] Report Writer: Jasbir Montalvo MD RBC (Bld) [#/Vol] 4.94 10*6/uL Normal 4.21-5.77 [facility] Comment on above: Performed By: #### P HO, CDP, RA, PT, SED, BMPX, FREDA, MG, LD, CRP, FEBC, B12FOL, PTT, C4, CCPAB, FERI, IOCAL, CORTI, CK, C3, REJEC #### [facility] [email or web address] [facility] [place], [place] [id number] Report Writer: Jasbir Montalvo MD WBC (Bld) [#/Vol] 10.1 10*3/uL Normal 3.5-11.3 [facility] Comment on above: Performed By: #### P HO, CDP, RA, PT, SED, BMPX, FREDA, MG, LD, CRP, FEBC, B12FOL, PTT, C4, CCPAB, FERI, IOCAL, CORTI, CK, C3, REJEC #### [email or web address] [facility] [place], [place] [id number] Report Writer: Jasbir Montalvo MD CKon 11-30-2023 CK [Catalytic activity/Vol] 69 U/L 39 - 308 U/L [facility] CT LUMBAR SPINE WO CONTRASTo n 11-30-2023 [...] Shanthi Mcdonough MD 11/30/23 Final result Normal [facility] CT THORACIC SPINE WO CONTRAS Ton 11-30-2023 [...] Shanthi Mcdonough MD 11/30/23 Final result Normal [facility] Calcium, Ionicon 11-30-2023 Calcium [Moles/Vol] 1.21 mmol/L Normal 1.13-1.33 [facility] Comment on above: Performed By: #### P HO, CDP, RA, PT, SED, BMPX, FREDA, MG, LD, CRP, FEBC, B12FOL, PTT, C4, CCPAB, FERI, IOCAL, CORTI, CK, C3, REJEC ####[facility] [place] [address] [facility] Director: Jasbir Montalvo MD Calcium, Ionizedon Calcium.ionized (Bld) [Moles/Vol] 1.21 mmol/L 1.13 - 1.33 mmol/L [facility] Cortisolon 11-30-2023 Cortisol 15.5 ug/dL Normal 2.7-18.4 [facility] Comment on above: Result Comment: Cortisol Reference Range: AM 6.0-18.4 PM 2.7-10.5 Performed By: #### P HO, CDP, RA, PT, SED, BMPX, FREDA, MG, LD, CRP, FEBC, B12FOL, PTT, C4, CCPAB, FERI, IOCAL, CORTI, CK, C3, REJEC #### [employer] [address] [place] [address] [id number] Report Writer: Jasbir Montalvo MD Cortisol Totalon 11-30-2023 Cortisol [Mass/Vol] 15.5 ug/dL 2.7 - 18 .4 ug/dL [facility] Comment on above: Cortisol Reference Range: AM 6.0-18.4 PM 2.7-10.5 Creatine Kinaseon 11-30-2023 CK [Catalytic activity/Vol] 69 U/L Normal 39-308 [facility] Comment on above: Performed By: #### P HO, CDP, RA, PT, SED, BMPX, FREDA, MG, LD, CRP, FEBC, B12FOL, PTT, C4, CCPAB, FERI, IOCAL, CORTI, CK, C3, REJEC #### [employer] [address] [place] [address] Report Writer: Jasbir Montalvo MD Ferritinon 11-30-2023 Ferritin [Mass/Vol] 151 ng/mL Normal 30-400 [facility] Comment on above: Performed By: #### P HO, CDP, RA, PT, SED, BMPX, FREDA, MG, LD, CRP, FEBC, B12FOL, PTT, C4, CCPAB, FERI, IOCAL, CORTI, CK, C3, REJEC #### [employer] [address] [place] [id number] Report Writer: Jasbir Montalvo MD Ferritin [Mass/Vol] 151 ng/mL 30 - 400 ng/mL [facility] Glucose,Whole Bloodon 2023 Glucose [Mass/Vol] 231 mg/dL High 75-110 [facility] Glucose [Mass/Vol] 98 mg/dL Normal 75-110 [facility] Glucose [Mass/Vol] 154 mg/dL High 75-110 [facility] Glucose [Mass/Vol] 137 mg/dL High 75-110 [facility] Glucose [Mass/Vol] 55 mg/dL Low 75-110 [facility] Glucose [Mass/Vol] 48 mg/dL Low 75-110 [facility] Comment on above: Result Comment: Crit ical Noted Iron Binding Cap.on 11-30-19 24 % Fe Saturation 24 % Normal 20-55 [facility] Comment on above: Performed By: #### P HO, CDP, RA, PT, SED, BMPX, FREDA, MG, LD, CRP, FEBC, B12FOL, PTT, C4, CCPAB, FERI, IOCAL, CORTI, CK, C3, REJEC #### [address] [address] Report Writer: Jasbir Montalvo MD Iron [Mass/Vol] 54 ug/dL Low 59-158 [facility] Comment on above: Performed By: #### P HO, CDP, RA, PT, SED, BMPX, FREDA, MG, LD, CRP, FEBC, B12FOL, PTT, C4, CCPAB, FERI, IOCAL, CORTI, CK, C3, REJEC #### [address] [address] Report Writer: Jasbir Montalvo MD Total Fe Binding Cap 224 ug/dL Low 250-450 [facility] Comment on above: Performed By: #### P HO, CDP, RA, PT, SED, BMPX, FREDA, MG, LD, CRP, FEBC, B12FOL, PTT, C4, CCPAB, FERI, IOCAL, CORTI, CK, C3, REJEC #### [facility] [email or web address] [address] [place] [id number] Report Writer: Jasbir Montalvo MD Unbound Fe Bind Cap 170 ug/dL Normal 112-347 [facility] Comment on above: Performed By: #### P HO, CDP, RA, PT, SED, BMPX, FREDA, MG, LD, CRP, FEBC, B12FOL, PTT, C4, CCPAB, FERI, IOCAL, CORTI, CK, C3, REJEC #### [address] [id number] Report Writer: Jasbir Montalvo MD Iron and TIBCon 11-30-2023 Interpretation and review of laboratory results Abnormal [facility] Iron [Mass/Vol] 54 ug/dL Low 59 - 158 ug/dL [facility] Iron binding capacity [Mass/Vol] 224 ug/dL Low 250 - 450 ug/dL [facility] Iron saturation [Mass fraction] 24 % 20 - 55 % [facility] UIBC 170 ug/dL 112 - 347 ug/dL [facility] Lactate Dehydrogenaseon 11-07 LDH [Catalytic activity/Vol] 243 U/L High 135-225 [facility] Comment on above: Performed By: #### P HO, CDP, RA, PT, SED, BMPX, FREDA, MG, LD, CRP, FEBC, B12FOL, PTT, C4, CCPAB, FERI, IOCAL, CORTI, CK, C3, REJEC #### [place] [id number] Report Writer: Jasbir Montalvo MD LDH [Catalytic activity/Vol] 243 U/L High 135 - 225 U/L [facility] Magnesiumon 11-30-2023 Magnesium [Mass/Vol] 2.7 mg/dL High 1.6-2.6 [facility] Comment on above: Performed By: #### P HO, CDP, RA, PT, SED, BMPX, FREDA, MG, LD, CRP, FEBC, B12FOL, PTT, C4, CCPAB, FERI, IOCAL, CORTI, CK, C3, REJEC ####[address] [address] Lab Director: Jasbir Montalvo MD Magnesium [Mass/Vol] 2.7 mg/dL High 1.6 - 2.6 mg/dL [facility] Myoglobinon 11-30-2023 Myoglobin [Mass/Vol] 59 ng/mL Normal 28-72 [facility] Comment on above: Performed By: #### P HO, CDP, RA, PT, SED, BMPX, FREDA, MG, LD, CRP, FEBC, B12FOL, PTT, C4, CCPAB, FERI, IOCAL, CORTI, CK, C3, REJEC ####[facility] [id number] [place] [address] [facility] Director: Jasbir Montalvo MD Myoglobin, Bloodon Myoglobin [Mass/Vol] 59 ng/mL 28 - 72 ng/mL [facility] No Panel Informationon 11-[address] [facility] [address] thoracic spine: M ild dextroscoliotic curvature. No acute fracture or traumatic malalignment. Chronic anterior loss in height of T10 of 15%. CT lumbar spine: No acute fracture or traumatic malalignment. Mild levo scoliotic curvature. Degenerative and degenerative disc changes L3 through S1. [facility] RIS CONSOLIDATED EXAMINATION: CT OF THE THORACIC [...] TISSUES/RETROPERITONEUM: No paraspinal mass is seen. [facility] Shanthi Doyle MD - 11/30/2023 EXAMINATION: CT [...] and degenerative disc changes L3 through S1. [employer] Radiology Study observation (narrative) [employer] Interpretation and review of laboratory results Abnormal [facility] [employer] [facility] Interpretation and review of laboratory results Abnormal [facility] [employer] [facility] No Panel InformationOrdered By: Shanthi Mcdonough on 11-30-2023 [employer] Work Phone: POC Glucose Fingerstickon Glucose [Mass/Vol] 231 mg/dL High 75 - 110 mg/dL [facility] [employer] [facility] Interpretation and review of laboratory results Abnormal [facility] Glucose [Mass/Vol] 98 mg/dL 75 - 110 mg/dL [facility] Glucose [Mass/Vol] 154 mg/dL High 75 - 110 mg/dL [facility] Interpretation and review of laboratory results Abnormal [facility] Glucose [Mass/Vol] 137 mg/dL High 75 - 110 mg/dL [facility] Interpretation and review of laboratory results Abnormal [facility] Glucose [Mass/Vol] 55 mg/dL Low 75 - 110 mg/dL [facility] Interpretation and review of laboratory results Abnormal [facility] Glucose [Mass/Vol] 48 mg/dL Low 75 - 110 mg/dL [facility] Recommend Comment on above: Critical Noted Interpretation and review of laboratory results Abnormal [facility] [employer] HEALTH PTon 11-30-2023 INR Coag (PPP) [Relative time] 3.0 {INR} Normal [facility] Comment on above: Result Comment: Therapeutic Range: Moderate Anticoagulant Intensity: INR = 2.0-3.0 High Anticoagulant Intensity: INR = 2.5-3.5 Performed By: #### P HO, CDP, RA, PT, SED, BMPX, FREDA, MG, LD, CRP, FEBC, B12FOL, PTT, C4, CCPAB, FERI, IOCAL, CORTI, CK, C3, REJEC ####[facility] [id number] [place] [id number] lab Director: Jasbir Montalvo MD PT Coag (PPP) [Time] 30.0 s High 11.7-14.9 [facility] Comment on above: Performed By: #### P HO, CDP, RA, PT, SED, BMPX, FREDA, MG, LD, CRP, FEBC, B12FOL, PTT, C4, CCPAB, FERI, IOCAL, CORTI, CK, C3, REJEC ####[facility] [id number] [place] [address] lab Director: Jasbir Montalvo MD Phosphoruson 11-30-2023 Phosphate [Mass/Vol] 3.5 mg/dL 2.5 - 4.5 mg/dL [facility] Phosphorus, Inorg.on 11-30- 024 Phosphorus, Inorg. 3.5 mg/dL Normal 2.5-4.5 [facility] Comment on above: Performed By: #### P HO, CDP, RA, PT, SED, BMPX, FREDA, MG, LD, CRP, FEBC, B12FOL, PTT, C4, CCPAB, FERI, IOCAL, CORTI, CK, C3, REJEC ####[place] [id number] lab Director: Jasbir Montalvo MD Protime-INRon 11-30-2023 INR Coag (PPP) [Relative time] 3.0 {INR} [facility] Comment on above: Therapeutic Range: Moderate Anticoagulant Intensity: INR = 2.0-3.0 High Anticoagulant Intensity: INR = 2.5-3.5 PT Coag (PPP) [Time] 30.0 s High [facility] RA Screenon 11-30-2023 RA Screen <10 Normal <14 [facility] Comment on above: Performed By: #### P HO, CDP, RA, PT, SED, BMPX, FREDA, MG, LD, CRP, FEBC, B12FOL, PTT, C4, CCPAB, FERI, IOCAL, CORTI, CK, C3, REJEC ####[facility] [address] [place], [place] [id number] [facility] Director: Jasbir Montalvo MD RHEUMATOID FACTORon 11-30-19 24 Rheumatoid factor Nephelometry Qn (S) <10 NINF [facility] Sedimentation Rateon Sedimentation Rate 18 mm/Hr Normal 0-20 [facility] Comment on above: Performed By: #### P HO, CDP, RA, PT, SED, BMPX, FREDA, MG, LD, CRP, FEBC, B12FOL, PTT, C4, CCPAB, FERI, IOCAL, CORTI, CK, C3, REJEC ####[facility] [id number] [place] [id number] [facility] Director: Jasbir Montalvo MD ESR Photometric method (Bld) [Velocity] 18 [facility] Specimen Rejectionon 024 Reason for rejection Unable to perform testing: Specimen quantity not sufficient. Normal [facility] Comment on above: Performed By: #### P HO, CDP, RA, PT, SED, BMPX, FREDA, MG, LD, CRP, FEBC, B12FOL, PTT, C4, CCPAB, FERI, IOCAL, CORTI, CK, C3, REJEC #### [facility] [email or web address] [facility] [place] [address] Report Writer: Jasbir Montalvo MD Source of sample .BLOOD Normal [facility] Comment on above: Performed By: #### P HO, CDP, RA, PT, SED, BMPX, FREDA, MG, LD, CRP, FEBC, B12FOL, PTT, C4, CCPAB, FERI, IOCAL, CORTI, CK, C3, REJEC #### [facility] [email or web address] [address] [place] [address] [id number] Report Writer: Jasbir Montalvo MD Test ordered AALDO Normal [facility] Comment on above: Performed By: #### P HO, CDP, RA, PT, SED, BMPX, FREDA, MG, LD, CRP, FEBC, B12FOL, PTT, C4, CCPAB, FERI, IOCAL, CORTI, CK, C3, REJEC #### [address] [id number] Report Writer: Jasbir Montalvo MD T. PALLIDUM ABon 11-30-2023 T. pallidum Ab IA Ql (S) Non-Reactive NONREACTIVE [facility] Comment on above: T. pallidum antibodies are not detected. There is no serological evidence of infection with T. pallidum (early primary syphilis cannot be excluded). Retest in 2-4 weeks if syphilis is clinically suspect. [facility] T.pallidum Ab Screenon 11-30 T.pallidum Ab Screen Non-Reactive Normal NR [facility] Comment on above: Result Comment: T. pallidum antibodies are not detected. There is no serological evidence of infection with T. pallidum (early primary syphilis cannot be excluded). Retest in 2-4 weeks if syphilis is clinically suspect. Performed By: #### P HO, CDP, RA, PT, SED, BMPX, FREDA, MG, LD, CRP, FEBC, B12FOL, PTT, C4, CCPAB, FERI, IOCAL, CORTI, CK, C3, REJEC #### [address] [id number] Report Writer: Jasbir Montalvo MD TSH w/reflex to FT4on 2023 Thyroid Stim. Horm. 0.36 uIU/mL Normal 0.30-5.00 [facility] Comment on above: Performed By: #### P HO, CDP, RA, PT, SED, BMPX, FREDA, MG, LD, CRP, FEBC, B12FOL, PTT, C4, CCPAB, FERI, IOCAL, CORTI, CK, C3, REJEC #### [address] [id number] Report Writer: Jasbir Montalvo MD TSH with Reflexon 11-30-2023 TSH Qn 0.36 m[IU]/L [facility] Venous Blood Gaseson 024 Body Temp. 37.0 Normal [facility] Comment on above: Performed By: #### P HO, CDP, RA, PT, SED, BMPX, FREDA, MG, LD, CRP, FEBC, B12FOL, PTT, C4, CCPAB, FERI, IOCAL, CORTI, CK, C3, REJEC #### [address] [id number] Report Writer: Jasbir Montalvo MD Carboxy Hgb 1.6 % Normal 0-5 [facility] Comment on above: Result Comment: Reference Range: Non-Smokers 0-2% Average Smoker 2-4% Heavy Smoker <10% Performed By: #### P HO, CDP, RA, PT, SED, BMPX, FREDA, MG, LD, CRP, FEBC, B12FOL, PTT, C4, CCPAB, FERI, IOCAL, CORTI, CK, C3, REJEC #### [address] [id number] Report Writer: Jasbir Montalvo MD FIO2 INFORMATION NOT PROVIDED Normal [facility] Comment on above: Performed By: #### P HO, CDP, RA, PT, SED, BMPX, FREDA, MG, LD, CRP, FEBC, B12FOL, PTT, C4, CCPAB, FERI, IOCAL, CORTI, CK, C3, REJEC #### [address] [id number] Report Writer: Jasbir Montalvo MD HCO3 (Bld) [Moles/Vol] 26.1 mmol/L Normal 24-30 [facility] Comment on above: Performed By: #### P HO, CDP, RA, PT, SED, BMPX, FREDA, MG, LD, CRP, FEBC, B12FOL, PTT, C4, CCPAB, FERI, IOCAL, CORTI, CK, C3, REJEC #### [address] [address] Report Writer: Jasbir Montalvo MD Negative Base Excess 1.1 mmol/L Normal 0.0-2.0 [facility] Comment on above: Performed By: #### P HO, CDP, RA, PT, SED, BMPX, FREDA, MG, LD, CRP, FEBC, B12FOL, PTT, C4, CCPAB, FERI, IOCAL, CORTI, CK, C3, REJEC #### [address] [address] Report Writer: Jasbir Montalvo MD Oxygen saturation in Blood 84.3 % Normal 60.0-85.0 [facility] Comment on above: Performed By: #### P HO, CDP, RA, PT, SED, BMPX, FREDA, MG, LD, CRP, FEBC, B12FOL, PTT, C4, CCPAB, FERI, IOCAL, CORTI, CK, C3, REJEC #### [address] [address] Report Writer: Jasbir Montalvo MD pCO2 55.2 mm Hg High 39-55 [facility] Comment on above: Performed By: #### P HO, CDP, RA, PT, SED, BMPX, FREDA, MG, LD, CRP, FEBC, B12FOL, PTT, C4, CCPAB, FERI, IOCAL, CORTI, CK, C3, REJEC #### [address] [address] Report Writer: Jasbir Montalvo MD pH (Bld) 7.297 [pH] Low 7.320-7.420 [facility] Comment on above: Performed By: #### P HO, CDP, RA, PT, SED, BMPX, FREDA, MG, LD, CRP, FEBC, B12FOL, PTT, C4, CCPAB, FERI, IOCAL, CORTI, CK, C3, REJEC #### [employer] [facility] [place], [place] [id number] Report Writer: Jasbir Montalvo MD pO2 55.2 mm Hg High 30-50 [facility] Comment on above: Performed By: #### P HO, CDP, RA, PT, SED, BMPX, FREDA, MG, LD, CRP, FEBC, B12FOL, PTT, C4, CCPAB, FERI, IOCAL, CORTI, CK, C3, REJEC #### [facility] [email or web address] [facility] [place], [place] [id number] Report Writer: Jasbir Montalvo MD Vitamin B12 & Folateon 11-30 Cobalamin (Vitamin B12) [Mass/Vol] 397 pg/mL 232 - 1245 pg/mL [facility] Folate [Mass/Vol] 6.2 ng/mL 4.8 - PINF ng/mL [facility] CT HEAD WO CONTRASTon 2023 CT HEAD [...] Nathaly Oh MD 11/29/23 Final result Normal [facility] Comp Metabolic Pr/rfx MGon 0 11-29-2023 AST [Catalytic activity/Vol] 18 U/L Normal <40 [facility] Comment on above: Performed By: #### P HO, CDP, RA, PT, SED, BMPX, FREDA, MG, LD, CRP, FEBC, B12FOL, PTT, C4, CCPAB, FERI, IOCAL, CORTI, CK, C3, REJEC #### [facility] [email or web address] [address] [place] [address] Report Writer: Jasbir Montalvo MD Albumin [Mass/Vol] 3.4 g/dL Low 3.5-5.2 [facility] Comment on above: Performed By: #### P HO, CDP, RA, PT, SED, BMPX, FREDA, MG, LD, CRP, FEBC, B12FOL, PTT, C4, CCPAB, FERI, IOCAL, CORTI, CK, C3, REJEC #### [facility] [email or web address] [address] [place], [place] [phone] Report Writer: Jasbir Montalvo MD Albumin/Glob Ratio 1.1 Normal 1.0-2.5 [facility] Comment on above: Performed By: #### P HO, CDP, RA, PT, SED, BMPX, FREDA, MG, LD, CRP, FEBC, B12FOL, PTT, C4, CCPAB, FERI, IOCAL, CORTI, CK, C3, REJEC #### [address] [address] Report Writer: Jasbir Montalvo MD Alkaline Phos 93 U/L Normal 40-129 [facility] Comment on above: Performed By: #### P HO, CDP, RA, PT, SED, BMPX, FREDA, MG, LD, CRP, FEBC, B12FOL, PTT, C4, CCPAB, FERI, IOCAL, CORTI, CK, C3, REJEC #### [address] [address] Report Writer: Jasbir Montalvo MD ALT [Catalytic activity/Vol] 14 U/L Normal 5-41 [facility] Comment on above: Performed By: #### P HO, CDP, RA, PT, SED, BMPX, FREDA, MG, LD, CRP, FEBC, B12FOL, PTT, C4, CCPAB, FERI, IOCAL, CORTI, CK, C3, REJEC #### [address] [address] Report Writer: Jasbir Montalvo MD Anion gap [Moles/Vol] 11 mmol/L Normal 9-17 [facility] Comment on above: Performed By: #### P HO, CDP, RA, PT, SED, BMPX, FREDA, MG, LD, CRP, FEBC, B12FOL, PTT, C4, CCPAB, FERI, IOCAL, CORTI, CK, C3, REJEC #### [address] [address] Report Writer: Jasbir Montalvo MD Bilirubin [Mass/Vol] 0.3 mg/dL Normal 0.3-1.2 [facility] Comment on above: Performed By: #### P HO, CDP, RA, PT, SED, BMPX, FREDA, MG, LD, CRP, FEBC, B12FOL, PTT, C4, CCPAB, FERI, IOCAL, CORTI, CK, C3, REJEC #### [facility] [email or web address] [address] [place] [address] Report Writer: Jasbir Montalvo MD Calcium [Mass/Vol] 8.9 mg/dL Normal 8.6-10.4 [facility] Comment on above: Performed By: #### P HO, CDP, RA, PT, SED, BMPX, FREDA, MG, LD, CRP, FEBC, B12FOL, PTT, C4, CCPAB, FERI, IOCAL, CORTI, CK, C3, REJEC #### [address] [address] Report Writer: Jasbir Montalvo MD Chloride [Moles/Vol] 109 mmol/L High 98-107 [facility] Comment on above: Performed By: #### P HO, CDP, RA, PT, SED, BMPX, FREDA, MG, LD, CRP, FEBC, B12FOL, PTT, C4, CCPAB, FERI, IOCAL, CORTI, CK, C3, REJEC #### [address] [address] Report Writer: Jasbir Montalvo MD CO2 [Moles/Vol] 24 mmol/L Normal 20-31 [facility] Comment on above: Performed By: #### P HO, CDP, RA, PT, SED, BMPX, FREDA, MG, LD, CRP, FEBC, B12FOL, PTT, C4, CCPAB, FERI, IOCAL, CORTI, CK, C3, REJEC #### [address] [address] Report Writer: Jasbir Montalvo MD Creatinine [Mass/Vol] 1.6 mg/dL High 0.7-1.2 [facility] Comment on above: Performed By: #### P HO, CDP, RA, PT, SED, BMPX, FREDA, MG, LD, CRP, FEBC, B12FOL, PTT, C4, CCPAB, FERI, IOCAL, CORTI, CK, C3, REJEC #### [address] [address] Report Writer: Jasbir Montalvo MD GFR/1.73 sq M.predicted among non-blacks MDRD (S/P/Bld) [Vol rate/Area] 48 mL/min/{1.73_m2} Low >60 [facility] Comment on above: Result Comment: These results [...] FERI, IOCAL, CORTI, CK, C3, REJEC #### [address] [address] Report Writer: Jasbir Montalvo MD Glucose [Mass/Vol] 151 mg/dL High 70-99 [facility] Comment on above: Performed By: #### P HO, CDP, RA, PT, SED, BMPX, FREDA, MG, LD, CRP, FEBC, B12FOL, PTT, C4, CCPAB, FERI, IOCAL, CORTI, CK, C3, REJEC #### [address] [address] Report Writer: Jasbir Montalvo MD Potassium [Moles/Vol] 4.1 mmol/L Normal 3.7-5.3 [facility] Comment on above: Performed By: #### P HO, CDP, RA, PT, SED, BMPX, FREDA, MG, LD, CRP, FEBC, B12FOL, PTT, C4, CCPAB, FERI, IOCAL, CORTI, CK, C3, REJEC #### [facility] [email or web address] [facility] [place] [address] Report Writer: Jasbir Montalvo MD Protein [Mass/Vol] 6.5 g/dL Normal 6.4-8.3 [facility] Comment on above: Performed By: #### P HO, CDP, RA, PT, SED, BMPX, FREDA, MG, LD, CRP, FEBC, B12FOL, PTT, C4, CCPAB, FERI, IOCAL, CORTI, CK, C3, REJEC #### [facility] [email or web address] [address] [place] [address] Report Writer: Jasbir Montalvo MD Sodium [Moles/Vol] 144 mmol/L Normal 135-144 [facility] Comment on above: Performed By: #### P HO, CDP, RA, PT, SED, BMPX, FREDA, MG, LD, CRP, FEBC, B12FOL, PTT, C4, CCPAB, FERI, IOCAL, CORTI, CK, C3, REJEC #### [facility] [email or web address] [address] [place] [address] Report Writer: Jasbir Montalvo MD Urea nitrogen [Mass/Vol] 36 mg/dL High 05-28 [facility] Comment on above: Performed By: #### P HO, CDP, RA, PT, SED, BMPX, FREDA, MG, LD, CRP, FEBC, B12FOL, PTT, C4, CCPAB, FERI, IOCAL, CORTI, CK, C3, REJEC #### [facility] [email or web address] [address] [place] [address] Report Writer: Jasbir Montalvo MD Comprehensive Metabolic Pane l w/ Reflex to MGon 11-29-2023 Albumin [Mass/Vol] 3.4 g/dL Low 3.5 - 5.2 g/dL [facility] Albumin/Globulin [Mass ratio] 1.1 {ratio} 1.0 - 2.5 [facility] ALP [Catalytic activity/Vol] 93 U/L 40 - 129 U/L [facility] ALT [Catalytic activity/Vol] 14 U/L 5 - 41 U/L [facility] Anion gap [Moles/Vol] 11 mmol/L 9 - 17 mmol/L [facility] AST [Catalytic activity/Vol] 18 U/L NINF - 40 U/L [facility] Bilirubin [Mass/Vol] 0.3 mg/dL 0.3 - 1.2 mg/dL [facility] Calcium [Mass/Vol] 8.9 mg/dL 8.6 - 10. 4 mg/dL [facility] Chloride [Moles/Vol] 109 mmol/L High 98 - 107 mmol/L [facility] CO2 [Moles/Vol] 24 mmol/L 20 - 31 mmol/L [facility] Creatinine [Mass/Vol] 1.6 mg/dL High 0.7 - 1.2 mg/dL [facility] GFR/1.73 sq M.predicted MDRD (S/P/Bld) [Vol rate/Area] 48 mL/min/{1.73_m2} Low - PINF [facility] Comment on above: These results are not [...] 151 mg/dL High 70 - 99 mg/dL [facility] Interpretation and review of laboratory results Abnormal [facility] Potassium [Moles/Vol] 4.1 mmol/L 3.7 - 5.3 mmol/L [facility] Protein [Mass/Vol] 6.5 g/dL 6.4 - 8.3 g/dL [facility] Sodium [Moles/Vol] 144 mmol/L 135 - 144 mmol/L [facility] Urea nitrogen [Mass/Vol] 36 mg/dL High 8 - 23 mg/dL [facility] Glucose, Whole Bloodon 11-29 Glucose [Mass/Vol] 169 mg/dL High 74-[address] [facility] Glucose [Mass/Vol] 236 mg/dL High 74-[address] [facility] Glucose [Mass/Vol] 116 mg/dL High 74-[address] [facility] Glucose [Mass/Vol] 123 mg/dL High 74-[address] [facility] Glucose [Mass/Vol] 53 mg/dL Low 74-[address] [facility] Glucose [Mass/Vol] 62 mg/dL Low 74-[address] [facility] Glucose,Whole Bloodon 2023 Glucose [Mass/Vol] 161 mg/dL High 75-110 [facility] POC Glucose Fingerstickon Glucose [Mass/Vol] 161 mg/dL High 75 - 110 mg/dL [facility] Interpretation and review of laboratory results Abnormal [facility] XR CHEST (2 VW)on 11-29-2023 XR CHEST [...] Nathaly Oh MD 11/29/23 Final result Normal [facility] RADHA Screen w/reflexon 2023 RADHA Screen Negative Normal NEG [facility] Comment on above: Performed By: #### A XUAN, GLYHGB, CRP, SED, PE, CDP, TSHX, HIVCMB, CK, ANAX, CP, B12FOL, VD25, AHCV #### [address] [id number] Report Writer: Jasbir Montalvo MD #### ASHVIN DUARTERP #### [facility] [address] [place] [address] [id number] Report Writer: Samuel Olivia MD Anti-dsDNA 6.0 IU/mL Normal <10.0 [facility] Comment on above: Result Comment: Reference Range: <10.0 Negative 10.0-15.0 Equivocal >15.0 Positive Performed By: #### A XUAN, GLYHGB, CRP, SED, PE, CDP, TSHX, HIVCMB, CK, ANAX, CP, B12FOL, VD25, AHCV #### [facility] [email or web address] [address] [place] [address] Report Writer: Jasbir Montalvo MD #### ASHVIN DUARTERP #### [facility] [address] [place], [place] [id number] Report Writer: Samuel Olivia MD XUAN Screen 0.2 U/mL Normal <0.7 [facility] Comment on above: Result Comment: Reference Range: <0.7 Negative 0.7-1.0 Equivocal >1.0 Positive XUAN Screen includes U1RNP,RNP70,Sm,Ro(SS-A),La(SS-B),CENP,Scl-70,Carolina-1 Performed By: #### A XUAN, GLYHGB, CRP, SED, PE, CDP, TSHX, HIVCMB, CK, ANAX, CP, B12FOL, VD25, AHCV #### [address] [id number] Report Writer: Jasbir Montalvo MD #### PACHECO DUARTE #### [facility] [address] [place] [address] Report Writer: Samuel Olivia MD Ammoniaon 11-28-2023 Ammonia (P) [Mass/Vol] ug/dL Low 16-[address] [facility] Comment on above: Performed By: #### A MON ####[facility] [place], [place] [id number] Lab Director: Marlon Mack MD Anti-Extract Nuc Agon 2023 Anti-RNP70 0.4 U/mL Normal <7.0 [facility] Comment on above: Result Comment: Reference Range: <7.0 Negative 7.0-10.0 Equivocal >10.0 Positive Performed By: #### A XUAN, GLYHGB, CRP, SED, PE, CDP, TSHX, HIVCMB, CK, ANAX, CP, B12FOL, VD25, AHCV #### [address] [id number] Report Writer: Jasbir Montalvo MD #### PACHECO DUARTE #### [facility] [address] [place] [address] Report Writer: Samuel Olivia MD Anti-Scleroderma <0.6 Normal <7.0 [facility] Comment on above: Result Comment: Reference Range: <7.0 Negative 7.0-10.0 Equivocal >10.0 Positive Performed By: #### A XUAN, GLYHGB, CRP, SED, PE, CDP, TSHX, HIVCMB, CK, ANAX, CP, B12FOL, VD25, AHCV #### [address] [address] Report Writer: Jasbir Montalvo MD #### PACHECO DUARTE #### [address] [id number] Report Writer: Samuel Olivia MD Anti-Sm 2.0 U/mL Normal <7.0 [facility] Comment on above: Result Comment: Reference Range: <7.0 Negative 7.0-10.0 Equivocal >10.0 Positive Performed By: #### A XUAN, GLYHGB, CRP, SED, PE, CDP, TSHX, HIVCMB, CK, ANAX, CP, B12FOL, VD25, AHCV #### [address] [address] Report Writer: Jasbir Montalvo MD #### PACHECO DUARTE #### [address] [address] Report Writer: Samuel Olivia MD SSA 0.5 U/mL Normal <7.0 [facility] Comment on above: Result Comment: Reference Range: <7.0 Negative 7.0-10.0 Equivocal >10.0 Positive Performed By: #### A XUAN, GLYHGB, CRP, SED, PE, CDP, TSHX, HIVCMB, CK, ANAX, CP, B12FOL, VD25, AHCV #### [address] [address] Report Writer: Jasbir Montalvo MD #### PACHECO DUARTE #### [facility] [address] [place] [address] Report Writer: Samuel Olivia MD SSB <0.3 Normal <7.0 [facility] Comment on above: Result Comment: Reference Range: <7.0 Negative 7.0-10.0 Equivocal >10.0 Positive Performed By: #### A XUAN, GLYHGB, CRP, SED, PE, CDP, TSHX, HIVCMB, CK, ANAX, CP, B12FOL, VD25, AHCV #### [facility] [address] [place] [address] Report Writer: Jasbir Montalvo MD #### AMGE, ALYARP #### [facility] [address] [place] [address] Report Writer: Samuel Olivia MD Basic Metabolic Profon 11-28 Anion gap [Moles/Vol] 9 mmol/L Normal 9-[address] [facility] Comment on above: Performed By: #### B MP, MG, CDP, TROPI #### [address] [place] [address] Report Writer: Marlon Mack MD BUN/CRE Ratio 16 Normal 9- [place] Comment on above: Performed By: #### B MP, MG, CDP, TROPI #### [address] [place] [address] Report Writer: Marlon Mack MD Calcium [Mass/Vol] 9.1 mg/dL Normal 8.6-10.[address] [facility] Comment on above: Performed By: #### B MP, MG, CDP, TROPI #### [address] [place] [address] Report Writer: Marlon Mack MD Chloride [Moles/Vol] 107 mmol/L Normal 98-[address] [facility] Comment on above: Performed By: #### B MP, MG, CDP, TROPI #### [address] [place] [address] Report Writer: Marlon Mack MD CO2 [Moles/Vol] 27 mmol/L Normal 20-31 [facility] Comment on above: Performed By: #### B MP, MG, CDP, TROPI #### [facility] [address] [place] [address] Report Writer: Marlon Mack MD Creatinine [Mass/Vol] 1.8 mg/dL High 0.7-1.[address] [facility] Comment on above: Performed By: #### B MP, MG, CDP, TROPI #### [facility] [address] [place] [address] Report Writer: Marlon Mack MD GFR/1.73 sq M.predicted among non-blacks MDRD (S/P/Bld) [Vol rate/Area] 42 mL/min/{1.73_m2} Low >[address] [facility] Comment [...] #### B MP, MG, CDP, TROPI #### [facility] [address] [place] [address] [place] [address] Report Writer: Marlon Mack MD Glucose [Mass/Vol] 77 mg/dL Normal 70-[address] [facility] Comment on above: Performed By: #### B MP, MG, CDP, TROPI #### [facility] [address] [place] [address] [place] [address] Report Writer: Marlon Mack MD Potassium [Moles/Vol] 3.9 mmol/L Normal 3.7-5.[address] [facility] Comment on above: Performed By: #### B MP, MG, CDP, TROPI #### [address] [place] [address] Report Writer: Marlon Mack MD Sodium [Moles/Vol] 143 mmol/L Normal 135-[address] [facility] Comment on above: Performed By: #### B MP, MG, CDP, TROPI #### [facility] [address] [place] [address] Dr. [place], [place] [id number] Report Writer: Marlon Mack MD Urea nitrogen [Mass/Vol] 29 mg/dL High - [facility] Comment on above: Performed By: #### B MP, MG, CDP, TROPI #### [facility] [address] [place] [address] Dr. [place], [place] [address] Report Writer: Marlon Mack MD CBC with Diffon 11-28-2023 Abs. Basophil 0.06 k/uL Normal 0.00-0.20 [place] Comment on above: Performed By: #### B MP, MG, CDP, TROPI #### [address] [place], [facility]83 Report Writer: Marlon Mack MD Abs.Imm.Granulocyte 0.04 k/uL Normal 0.00-0.[address] [facility] Comment on above: Performed By: #### B MP, MG, CDP, TROPI #### [address] [place], [place] [id number] Report Writer: Marlon Mack MD Abs.Neutrophil (Seg) 6.33 k/uL Normal 1.50-8.[address] [facility] Comment on above: Performed By: #### B MP, MG, CDP, TROPI #### [facility] [address] [place] [address] Dr. [place], [facility]83 Report Writer: Marlon Mack MD Basophils/100 WBC (Bld) 1 % Normal 0-[address] [facility] Comment on above: Performed By: #### B MP, MG, CDP, TROPI #### [address] [place], [place] [id number] Report Writer: Marlon Mack MD Eosinophils (Bld) [#/Vol] 0.25 10*3/uL Normal 0.00-0.[address] [facility] Comment on above: Performed By: #### B MP, MG, CDP, TROPI #### [facility] [address] [place] [address] Report Writer: Marlon Mack MD Eosinophils/100 WBC (Bld) 3 % Normal 1-[address] [facility] Comment on above: Performed By: #### B MP, MG, CDP, TROPI #### [facility] [address] [place], [facility]83 Report Writer: Marlon Mack MD Immature granulocytes/100 WBC (Bld) 0 % Normal [address] [facility] Comment on above: Performed By: #### B MP, MG, CDP, TROPI #### [facility] [address] [place], [facility]83 Report Writer: Marlon Mack MD Lymphocytes (Bld) [#/Vol] 2.23 10*3/uL Normal 1.10-3.[address] [facility] Comment on above: Performed By: #### B MP, MG, CDP, TROPI #### [address] [place] [address] Report Writer: Marlon Mack MD Lymphocytes/100 WBC (Bld) 23 % Low 24-[address] [facility] Comment on above: Performed By: #### B MP, MG, CDP, TROPI #### [address] [place], [facility]83 Report Writer: Marlon Mack MD Monocytes (Bld) [#/Vol] 0.64 10*3/uL Normal 0.10-1.[address] [facility] Comment on above: Performed By: #### B MP, MG, CDP, TROPI #### [facility] [address] [place] [address] Report Writer: Mralon Mack MD Monocytes/100 WBC (Bld) 7 % Normal 3-[address] [facility] Comment on above: Performed By: #### B MP, MG, CDP, TROPI #### [facility] [address] [place] [address] Dr. [place], [place] [id number] Report Writer: Marlon Mack MD Neutrophil (Seg) 66 % High 36-65 [facility] Comment on above: Performed By: #### B MP, MG, CDP, TROPI #### [address] [place], [place] [id number] Report Writer: Marlon Mack MD Erythrocyte distribution width (RBC) [Ratio] 14.0 % Normal 11.8-14.[address] [facility] Comment on above: Performed By: #### B MP, MG, CDP, TROPI #### [address] [place], [place] [id number] Report Writer: Marlon Mack MD Hematocrit (Bld) [Volume fraction] 48.5 % Normal 40.7-50.[address] [facility] Comment on above: Performed By: #### B MP, MG, CDP, TROPI #### [address] [place] [address] Report Writer: Marlon Mack MD Hemoglobin (Bld) [Mass/Vol] 15.9 g/dL Normal 13.0-17.[address] [facility] Comment on above: Performed By: #### B MP, MG, CDP, TROPI #### [address] [place], [place] [id number] Report Writer: Marlon Mack MD MCH (RBC) [Entitic mass] 31.2 pg Normal 25.2-33.[address] [facility] Comment on above: Performed By: #### B MP, MG, CDP, TROPI #### [address] [place], [place] [id number] Report Writer: Marlon Mack MD MCHC (RBC) [Mass/Vol] 32.8 g/dL Normal 28.4-34.[address] [facility] Comment on above: Performed By: #### B MP, MG, CDP, TROPI #### [address] [place], [facility]83 Report Writer: Marlon Mack MD MCV (RBC) [Entitic vol] 95.3 fL Normal 82.6-102.[address] [facility] Comment on above: Performed By: #### B MP, MG, CDP, TROPI #### [address] [place], [facility]83 Report Writer: Marlon Mack MD NRBC Automated 0.0 per 100 WBC Normal 0.[address] [facility] Comment on above: Performed By: #### B MP, MG, CDP, TROPI #### [address] [place], [facility]83 Report Writer: Marlon Mack MD Platelet mean volume (Bld) [Entitic vol] 9.9 fL Normal 8.1-13.[address] [facility] Comment on above: Performed By: #### B MP, MG, CDP, TROPI #### [address] [place], [place] [address] Report Writer: Marlon Mack MD Platelets (Bld) [#/Vol] 233 10*3/uL Normal 138-[address] [facility] Comment on above: Performed By: #### B MP, MG, CDP, TROPI #### [address] [place], [place] [address] Report Writer: Marlon Mack MD RBC (Bld) [#/Vol] 5.09 10*6/uL Normal 4.21-5.[address] [facility] Comment on above: Performed By: #### B MP, MG, CDP, TROPI #### [address] [place] [address] Report Writer: Marlon Mack MD WBC (Bld) [#/Vol] 9.2 10*3/uL Normal 3.5-11.[address] [facility] Comment on above: Performed By: #### B MP, MG, CDP, TROPI #### [facility] [address] [place] [address] Report Writer: Marlon Mack MD Glucose, Whole Bloodon 11-28 Glucose [Mass/Vol] 115 mg/dL High 74-[address] [facility] Glucose [Mass/Vol] 81 mg/dL Normal 74-[address] [facility] Magnesiumon 11-28-2023 Magnesium [Mass/Vol] 2.5 mg/dL Normal 1.6-2.[address] [facility] Comment on above: Performed By: #### B MP, MG, CDP, TROPI #### [facility] [address] [place] [address] Report Writer: Marlon Mack MD Myasthenia Grav Pnlon 2023 Acetylchol Bind Ab 0.0 nmol/L Normal 0.0-0.4 [facility] Comment on above: Result Comment: (NOT E) [...] developed and its performance characteristics determined by [employer]. It has not been cleared or approved by the [place] Food and Drug Administration. This test was performed in a CLIA certified laboratory and is intended for clinical purposes. Performed By: #### A XUAN, GLYHGB, CRP, SED, PE, CDP, TSHX, HIVCMB, CK, ANAX, CP, B12FOL, VD25, AHCV #### [facility] [place] [address] Report Writer: Jasbir Montalvo MD #### PACHECO DUARTE #### [address] [address] Report Writer: Samuel Olivia MD Acetylchol Block Ab 0 % Normal 0-26 [facility] Comment on above: Result Comment: (NOT E) [...] developed and its performance characteristics determined by [employer]. It has not been cleared or approved by the [place] Food and Drug Administration. This test was performed in a CLIA certified laboratory and is intended for clinical purposes. Performed By: #### A XUAN, GLYHGB, CRP, SED, PE, CDP, TSHX, HIVCMB, CK, ANAX, CP, B12FOL, VD25, AHCV #### [employer] [address] [place] [address] Report Writer: Jasbir Montalvo MD #### PACHECO DUARTE #### [facility] [address] [place] [address] Report Writer: Samuel Olivia MD Striated Musc Ab IgG <1:40 Normal <1:40 [facility] Comment on above: Result Comment: (NOT E) [...] developed and its performance characteristics determined by [employer]. It has not been cleared or approved by the [place] Food and Drug Administration. This test was performed in a CLIA certified laboratory and is intended for clinical purposes. Performed By: #### A XUAN, GLYHGB, CRP, SED, PE, CDP, TSHX, HIVCMB, CK, ANAX, CP, B12FOL, VD25, AHCV #### [place] [address] [place] [address] Report Writer: Jasbir Montalvo MD #### PACHECO DUARTE #### [facility] [address] [place] [address] Report Writer: Samuel Olivia MD Titin Antibody 0.35 IV Normal 0.00-0.45 [facility] Comment on above: Result Comment: (NOT E) [...] developed and its performance characteristics determined by [employer]. It has not been cleared or approved by the [place] Food and Drug Administration. This test was performed in a CLIA certified laboratory and is intended for clinical purposes. Performed By: [facility] [address] [place] [address] [employer]: Uriah Prasad MD, PhD CLIA Number: [id number] Performed By: #### A XUAN, GLYHGB, CRP, SED, PE, CDP, TSHX, HIVCMB, CK, ANAX, CP, B12FOL, VD25, AHCV #### [facility] [address] [place], [place] [id number] Report Writer: Jasbir Montalvo MD #### AMGE, ALYARP #### [facility] [address] [place] [address] Report Writer: Samuel Olivia MD Thyroid Stim. Horm.on 2023 Thyroid Stim. Horm. 0.43 uIU/mL Normal 0.30-5.00 [facility] Comment on above: Performed By: #### T SH #### [address] [place] [address] Report Writer: Marlon Mack MD Troponinon 11-28-2023 Troponin, High Sens 25 ng/L High [address] [facility] Comment on above: Result Comment: High Sensitivity Troponin values cannot be compared with other Troponin methodologies. Performed By: #### T ROPI #### [address] [place] [address] Report Writer: Marlon Mack MD Troponin, High Sens 24 ng/L High [address] [facility] Comment on above: Result Comment: High Sensitivity Troponin values cannot be compared with other Troponin methodologies. Performed By: #### B MP, MG, CDP, TROPI #### [address] [place] [address] Report Writer: Marlon Mack MD Lyme Dis Rflex Pnlon 024 B burgdorferi Abs, Total 0.37 IV Normal <=0.90 [facility] Comment on above: Result Comment: (NOT E) [...] antibodies to B. burgdorferi detected. Performed By: [employer] [address] [place] [id number] [employer]her: Uriah Prasad MD, PhD CLIA Number: [id number] Performed By: #### A XUAN, GLYHGB, CRP, SED, PE, CDP, TSHX, HIVCMB, CK, ANAX, CP, B12FOL, VD25, AHCV #### [place] [address] Report Writer: Jasbir Montalvo MD #### PACHECO DUARTE #### [address] [address] Report Writer: Samuel Olivia MD Prot. Electroph, Blon 2023 Pathologist Review: Reviewed by patholog ist: Shirley Fernando M.D. Normal [facility] Comment on above: Performed By: #### A XUAN, GLYHGB, CRP, SED, PE, CDP, TSHX, HIVCMB, CK, ANAX, CP, B12FOL, VD25, AHCV #### [email or web address] [address] [place] [address] Report Writer: Jasbir Montalvo MD #### PACHECO DUARTE #### [facility] [email or web address] [address] [place] [address] Report Writer: Samuel Olivia MD Prot. Elect-Interp NORMAL ELECTROPHORET IC PATTERN Normal [facility] Comment on above: Performed By: #### A XUAN, GLYHGB, CRP, SED, PE, CDP, TSHX, HIVCMB, CK, ANAX, CP, B12FOL, VD25, AHCV #### [address] [address] Report Writer: Jasbir Montalvo MD #### PACHECO DUARTE #### [facility] [address] [place], [place] [id number] Report Writer: Samuel Olivia MD B12/Folate Panelon Folic Acid 7.4 ng/mL Normal 4.8-24.2 [facility] Comment on above: Performed By: #### A XUAN, GLYHGB, CRP, SED, PE, CDP, TSHX, HIVCMB, CK, ANAX, CP, B12FOL, VD25, AHCV #### [address] [address] Report Writer: Jasbir Montalvo MD #### PACHECO DUARTE #### [facility] [address] [place] [address] Report Writer: Samuel Olivia MD Prot. Electroph, Blon 2023 Albumin [Mass/Vol] 4.2 g/dL Normal 3.2-5.2 [facility] Comment on above: Performed By: #### A XUAN, GLYHGB, CRP, SED, PE, CDP, TSHX, HIVCMB, CK, ANAX, CP, B12FOL, VD25, AHCV #### [address] [address] Report Writer: Jasbir Montalvo MD #### PACHECO DUARTE #### [facility] [address] [place] [address] Report Writer: Samuel Olivia MD Albumin, % 59 % Normal 45-65 [facility] Comment on above: Performed By: #### A XUAN, GLYHGB, CRP, SED, PE, CDP, TSHX, HIVCMB, CK, ANAX, CP, B12FOL, VD25, AHCV #### [address] [id number] Report Writer: Jasbir Montalvo MD #### ASHVIN DUARTERP #### [address] [address] Report Writer: Samuel Olivia MD Cczgt-3-vmhzltzrq 0.2 g/dL Normal 0.1-0.4 [facility] Comment on above: Performed By: #### A XUAN, GLYHGB, CRP, SED, PE, CDP, TSHX, HIVCMB, CK, ANAX, CP, B12FOL, VD25, AHCV #### [place] [address] Report Writer: Jasbir Montalvo MD #### ASHVIN DUARTERP #### [address] [address] Report Writer: Samuel Olivia MD Ktass-2-tlbgbbmty,% 3 % Normal 3-6 [facility] Comment on above: Performed By: #### A XUAN, GLYHGB, CRP, SED, PE, CDP, TSHX, HIVCMB, CK, ANAX, CP, B12FOL, VD25, AHCV #### [place] [address] Report Writer: Jasbir Montalvo MD #### ASHVIN DUARTERP #### [facility] [address] [place] [address] Report Writer: Samuel Olivia MD Eikbs-6-ezrfunwgm 0.9 g/dL Normal 0.5-0.9 [facility] Comment on above: Performed By: #### A XUAN, GLYHGB, CRP, SED, PE, CDP, TSHX, HIVCMB, CK, ANAX, CP, B12FOL, VD25, AHCV #### [address] [id number] Report Writer: Jasbir Montalvo MD #### ASHVIN DUARTERP #### [facility] [address] [place] [id number] Report Writer: Samuel Olivia MD Rttsf-9-kycfeeasl,% 13 % Normal 6-13 [facility] Comment on above: Performed By: #### A XUAN, GLYHGB, CRP, SED, PE, CDP, TSHX, HIVCMB, CK, ANAX, CP, B12FOL, VD25, AHCV #### [address] [id number] Report Writer: Jasbir Montalvo MD #### PACHECO DUARTE #### [address] [address] Report Writer: Samuel Olivia MD Beta-globulins 0.8 g/dL Normal 0.5-1.1 [facility] Comment on above: Performed By: #### A XUAN, GLYHGB, CRP, SED, PE, CDP, TSHX, HIVCMB, CK, ANAX, CP, B12FOL, VD25, AHCV #### [address] [id number] Report Writer: Jasbir Montalvo MD #### PACHECO DUARTE #### [address] [id number] Report Writer: Samuel Olivia MD Beta-globulins,% 11 % Normal 11-19 [facility] Comment on above: Performed By: #### A XUAN, GLYHGB, CRP, SED, PE, CDP, TSHX, HIVCMB, CK, ANAX, CP, B12FOL, VD25, AHCV #### [address] [id number] Report Writer: Jasbir Montalvo MD #### ASHVIN DUARTERP #### [facility] [address] [place] [address] Report Writer: Samuel Olivia MD Gamma-globulins 1.0 g/dL Normal 0.5-1.5 [facility] Comment on above: Performed By: #### A XUAN, GLYHGB, CRP, SED, PE, CDP, TSHX, HIVCMB, CK, ANAX, CP, B12FOL, VD25, AHCV #### [address] [id number] Report Writer: Jasbir Montalvo MD #### ASHVIN DUARTERP #### [facility] [address] [place] [address] Report Writer: Samuel Olivia MD Gamma-globulins,% 14 % Normal 9-20 [facility] Comment on above: Performed By: #### A XUAN, GLYHGB, CRP, SED, PE, CDP, TSHX, HIVCMB, CK, ANAX, CP, B12FOL, VD25, AHCV #### [address] [id number] Report Writer: Jasbir Montalvo MD #### ASHVIN DUARTERP #### [facility] [address] [place] [address] Report Writer: Samuel Olivia MD Total Prot. Sum 7.1 g/dL Normal 6.3-8.2 [facility] Comment on above: Performed By: #### A XUAN, GLYHGB, CRP, SED, PE, CDP, TSHX, HIVCMB, CK, ANAX, CP, B12FOL, VD25, AHCV #### [address] [id number] Report Writer: Jasbir Montalvo MD #### GERALD ALROSIERP #### [facility] [address] [place] [address] Report Writer: Samuel Olivia MD Total Prot. Sum,% 100 % Normal 98-102 [facility] Comment on above: Performed By: #### A XUAN, GLYHGB, CRP, SED, PE, CDP, TSHX, HIVCMB, CK, ANAX, CP, B12FOL, VD25, AHCV #### [address] [address] Report Writer: Jasbir Montalvo MD #### PACHECO DUARTE #### [facility] [address] [place] [address] Report Writer: Samuel Olivia MD B12/Folate Panelon 4 Cobalamin (Vitamin B12) [Mass/Vol] 577 pg/mL Normal 232-1245 [facility] Comment on above: Performed By: #### A XUAN, GLYHGB, CRP, SED, PE, CDP, TSHX, HIVCMB, CK, ANAX, CP, B12FOL, VD25, AHCV #### [address] [address] Report Writer: Jasbir Montalvo MD #### PACHECO DUARTE #### [facility] [address] [place] [address] Report Writer: Samuel Olivia MD C-Reactive Proteinon 024 CRP [Mass/Vol] 20.1 mg/L High 0.0-5.0 [facility] Comment on above: Performed By: #### A XUAN, GLYHGB, CRP, SED, PE, CDP, TSHX, HIVCMB, CK, ANAX, CP, B12FOL, VD25, AHCV #### [address] [address] Report Writer: Jasbir Montalvo MD #### PACHECO DUARTE #### [facility] [address] [place], [place] [id number] Report Writer: Samuel Olivia MD CBC with Diffon 11-25-2023 Abs. Basophil 0.09 k/uL Normal 0.00-0.20 [facility] Comment on above: Performed By: #### A XUAN, GLYHGB, CRP, SED, PE, CDP, TSHX, HIVCMB, CK, ANAX, CP, B12FOL, VD25, AHCV #### [facility] [address] [place] [address] Report Writer: Jasbir Montalvo MD #### AMYARELI ALYARP #### [facility] [address] [place], [place] [id number] Report Writer: Samuel Olivia MD Abs.Imm.Granulocyte 0.05 k/uL Normal 0.00-0.30 [facility] Comment on above: Performed By: #### A XUAN, GLYHGB, CRP, SED, PE, CDP, TSHX, HIVCMB, CK, ANAX, CP, B12FOL, VD25, AHCV #### [facility] [address] [place] [address] Report Writer: Jasbir Montalvo MD #### ASHVIN DUARTERP #### [facility] [address] [place], [place] [id number] Report Writer: Samuel Olivia MD Abs.Neutrophil (Seg) 7.53 k/uL Normal 1.50-8.10 [facility] Comment on above: Performed By: #### A XUAN, GLYHGB, CRP, SED, PE, CDP, TSHX, HIVCMB, CK, ANAX, CP, B12FOL, VD25, AHCV #### [facility] [address] [place] [address] Report Writer: Jasbir Montalvo MD #### AMYARELI ALYARP #### [facility] [address] [place], [place] [id number] Report Writer: Samuel Olivia MD Basophils/100 WBC (Bld) 1 % Normal 0-2 [facility] Comment on above: Performed By: #### A XUAN, GLYHGB, CRP, SED, PE, CDP, TSHX, HIVCMB, CK, ANAX, CP, B12FOL, VD25, AHCV #### [address] [id number] Report Writer: Jasbir Montalvo MD #### PACHECO DUARTE #### [facility] [address] [place], [place] [id number] Report Writer: Samuel Olivia MD Eosinophils (Bld) [#/Vol] 0.39 10*3/uL Normal 0.00-0.44 [facility] Comment on above: Performed By: #### A XUAN, GLYHGB, CRP, SED, PE, CDP, TSHX, HIVCMB, CK, ANAX, CP, B12FOL, VD25, AHCV #### [address] [id number] Report Writer: Jasbir Montalvo MD #### PACHECO DUARTE #### [facility] [address] [place] [address] Report Writer: Samuel Olivia MD Eosinophils/100 WBC (Bld) 3 % Normal 1-4 [facility] Comment on above: Performed By: #### A XUAN, GLYHGB, CRP, SED, PE,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 above: Performed By: #### A 1C #### [facility] [address] [place] [address] Dr. Miah Buck LYMPH # 1.9 103/ul Normal 1.2-3.8 [facility] Comment on above: Performed By: #### A 1C #### [facility] [address] [place] [address] Dr. Miah Buck Lymphocytes/100 WBC (Bld) 27.0 % Normal 20.5-60.0 [facility] Comment on above: Performed By: #### A 1C #### [facility] [address] [place] [address] Dr. Miah Buck MANUAL DIFF REQ NO Normal [facility] Comment on above: Performed By: #### A 1C #### [facility] [address] [place] [address] Dr. Miah Buck MCH (RBC) [Entitic mass] 31.5 pg Normal 25.9-34.0 [facility] Comment on above: Performed By: #### A 1C #### [facility] [address] [place] [address] Dr. Miah Buck MCHC (RBC) [Mass/Vol] 34.4 g/dL Normal 29.9-35.2 [facility] Comment on above: Performed By: #### A 1C #### [facility] [address] [place] [address] Dr. Miah Buck MCV (RBC) [Entitic vol] 91.4 fL Normal 80.0-94.0 [facility] Comment on above: Performed By: #### A 1C #### [facility] [address] [place] [address] Dr. Miah Buck MONO # 0.4 103/ul Normal 0.3-0.8 [facility] Comment on above: Performed By: #### A 1C #### [facility] [address] [place] [address] Dr. Miah Buck Monocytes/100 WBC (Bld) 5.5 % Normal 1.7-12.0 [facility] Comment on above: Performed By: #### A 1C #### [facility] [address] [address] [address] Miah Buck NEUT # 4.5 103/ul Normal 1.4-6.5 [facility] Comment on above: Performed By: #### A 1C #### [facility] [address] [place] [address] Dr. Miah Buck Neutrophils/100 WBC (Bld) 62.6 % Normal 43.0-75.0 [facility] Comment on above: Performed By: #### A 1C #### [facility] [address] [place] [address] Dr. Miah Buck Platelet mean volume (Bld) [Entitic vol] 10.6 fL Normal 9.5-13.5 [facility] Comment on above: Performed By: #### A 1C #### [facility] [address] [place] [address] Dr. Miah Buck PLT 204 103/ul Normal 150-450 [facility] Comment on above: Performed By: #### A 1C #### [facility] [address] [place] [address] Dr. Miah Buck RBC 5.34 106/ul Normal 4.70-6.10 [facility] Comment on above: Performed By: #### A 1C #### [facility] [address] [place] [address] Dr. Miah Buck WBC 7.2 103/ul Normal 4.0-11.0 [facility] Comment on above: Performed By: #### A 1C #### [facility] [address] [place] [address] Dr. Miah Buck DIRECT LDLon 02-20-2023 Cholesterol in LDL [Mass/Vol] 173 mg/dL Normal [facility] Comment on above: Performed By: #### A 1C #### [facility] [address] [place] [address] Dr. Miah Buck DLDL NORMAL SEE BELOW Normal [facility] Comment on above: Result Comment: <100 mg/dl OPTIMAL 100 - 129 mg/dl NEAR OR ABOVE OPTIMAL 130 - 159 mg/dl BORDERLINE HIGH 160 - 189 mg/dl HIGH >190 mg/dl VERY HIGH Performed By: #### A 1C #### [facility] [address] [address] [address] Miah Buck FREE T3on 02-20-2023 FREE T3 1.75 pg/mlL Critically low 2.18-3.98 [facility] Comment on above: Performed By: #### A 1C #### [facility] [address] [address] [address] Miah Buck GLYCOHEMOGLOBIN A1Con 2022 ADA RECOMMENDATION SEE BELOW Normal [facility] Comment on above: Result Comment: ADA RECOMMENDED LIMIT 4.0 - 6.0 ADA THERAPEUTIC TARGET < 7.0 ACTION SUGGESTED > 7.0 Performed By: #### A 1C #### [facility] [address] [place] [address] Dr. Miah Buck Glucose [Mass/Vol] 298 mg/dL Normal [facility] Comment on above: Performed By: #### A 1C #### [facility] [address] [place] [address] Dr. Miah Buck HbA1c (Bld) [Mass fraction] 12.0 % Critically high 4.5-6.2 [facility] Comment on above: Performed By: #### A 1C #### [facility] [address] [place] [address] Dr. Miah Buck LIPID PROFILEon 02-20-2023 CHOL-HDL RATIO NORM SEE BELOW Normal [facility] Comment on above: Result Comment: 3.3 - 4.4 LOW RISK 4.4 - 7.1 AVERAGE RISK 7.1 - 11.0 MODERATE RISK >11.0 HIGH RISK Performed By: #### A 1C #### [facility] [address] [place] [address] Dr. Miah Buck Cholesterol [Mass/Vol] 303 mg/dL Critically high <=200 [facility] Comment on above: Performed By: #### A 1C #### [facility] [address] [address] [address] Miah Buck Cholesterol in HDL [Mass/Vol] 33 mg/dL Critically low 40-60 [facility] Comment on above: Performed By: #### A 1C #### [facility] [address] [address] [address] Miah Buck Cholesterol.total/C holesterol in HDL [Mass ratio] 9.2 {ratio} Normal [facility] Comment on above: Performed By: #### A 1C #### [facility] [address] [address] [address] Miah Buck HDL NORMAL > or = 60 mg/dl - LO W CARDIOVASCULAR RISK <40 mg/dl - HIGH CARDIOVASCULAR RISK Normal [facility] Comment on above: Performed By: #### A 1C #### [facility] [address] [address] [address] Miah Buck Triglyceride [Mass/Vol] 454 mg/dL Critically high <=150 [facility] Comment on above: Performed By: #### A 1C #### [facility] [address] [place] [address] Dr. Miah Buck VLDL CALC 90.8 mg/dL Normal [facility] Comment on above: Performed By: #### A 1C #### [facility] [address] [address] [address] Miah Buck PROF 14(COMP METB)on 023 Albumin [Mass/Vol] 3.5 g/dL Normal 3.4-5.0 [facility] Comment on above: Performed By: #### A 1C #### [facility] [address] [place] [address] Dr. Miah Buck Albumin/Globulin [Mass ratio] 0.7 {ratio} Normal [facility] Comment on above: Performed By: #### A 1C #### [facility] [address] [address] [address] Miah Buck ALP [Catalytic activity/Vol] 146 U/L Critically high 46-116 [facility] Comment on above: Performed By: #### A 1C #### [facility] [address] [place] [address] Dr. Miah Buck ALT [Catalytic activity/Vol] 40 U/L Normal 16-63 [facility] Comment on above: Performed By: #### A 1C #### [facility] [address] [address] [address] Miah Buck Anion gap [Moles/Vol] 13.8 mmol/L Normal [facility] Comment on above: Performed By: #### A 1C #### [facility] [address] [address] [address] Miah Buck AST [Catalytic activity/Vol] 19 U/L Normal 15-37 [facility] Comment on above: Performed By: #### A 1C #### [facility] [address] [address] [address] Miah Buck Bilirubin [Mass/Vol] 0.4 mg/dL Normal 0.2-1.0 [facility] Comment on above: Performed By: #### A 1C #### [facility] [address] [place] [address] Dr. Miah Buck Calcium [Mass/Vol] 9.1 mg/dL Normal 8.5-10.1 [facility] Comment on above: Performed By: #### A 1C #### [facility] [address] [address] [address] Miah Buck Chloride [Moles/Vol] 99 mmol/L Normal 98-107 [facility] Comment on above: Performed By: #### A 1C #### [facility] [address] [address] [address] Miah Buck CO2 [Moles/Vol] 27.6 mmol/L Normal 21.0-32.0 [facility] Comment on above: Performed By: #### A 1C #### [facility] [address] [address] [address] Miah Buck Creatinine [Mass/Vol] 1.88 mg/dL Critically high 0.70-1.30 [facility] Comment on above: Performed By: #### A 1C #### [facility] [address] [address] [address] Miah Buck EGFR-AF SENEGALESE 44 mL/min/1.73m2 Critically low >=60 [facility] Comment on above: Performed By: #### A 1C #### [facility] [address] [address] [address] Miah Buck EGFR-NON AF SENEGALESE 37 mL/min/1.73m2 Critically low >=60 [facility] Comment on above: Performed By: #### A 1C #### [facility] [address] [address] [address] Miah Buck Globulin (S) [Mass/Vol] 4.7 g/dL Normal [facility] Comment on above: Performed By: #### A 1C #### [facility] [address] [address] [address] Miah Buck Glucose [Mass/Vol] 524 mg/dL Critically high 74-106 [facility] Comment on above: Performed By: #### A 1C #### [facility] [address] [address] [address] Miah Buck Potassium [Moles/Vol] 4.4 mmol/L Normal 3.5-5.1 [facility] Comment on above: Performed By: #### A 1C #### [facility] [address] [address] [address] Miah Buck Protein [Mass/Vol] 8.2 g/dL Normal 6.4-8.2 [facility] Comment on above: Performed By: #### A 1C #### [facility] [address] [address] [address] Miah Buck Sodium [Moles/Vol] 136 mmol/L Normal 136-145 [facility] Comment on above: Performed By: #### A 1C #### [facility] [address] [address] [address] Miah Buck Urea nitrogen [Mass/Vol] 21.0 mg/dL Critically high 7.0-18.0 [facility] Comment on above: Performed By: #### A 1C #### [facility] [address] [address] [address] Miah Buck Urea nitrogen/Creatinine [Mass ratio] 11.2 mg/mg Normal [facility] Comment on above: Performed By: #### A 1C #### [facility] [address] [place] [address] Dr. Miah Buck T4on 02-20-2023 T4 [Mass/Vol] 7.80 ug/dL Normal 4.50-12.10 [facility] Comment on above: Performed By: #### A 1C #### [facility] [address] [place] [address] Dr. Miah Buck TSHon 02-20-2023 TSH 0.740 uIU/mL Normal 0.358-3.740 [facility] Comment on above: Performed By: #### A 1C #### [facility] [address] [place] [address] Dr. Miah Buck URIC ACID SERUMon 02-20-2023 Urate [Mass/Vol] 8.2 mg/dL Critically high 3.5-7.2 [facility] Comment on above: Performed By: #### A 1C #### [facility] [address] [place] [address] Dr. Miah Buck CREATININEon 01-07-2023 Creatinine [Mass/Vol] 2.09 mg/dL Critically high 0.70-1.30 [facility] Comment on above: Performed By: #### M G, CMP, BNP, TSH, CRP #### [facility] [address] [place] [address] Dr. Miah Buck EGFR-AF SENEGALESE 39 mL/min/1.73m2 Critically low >=60 [facility] Comment on above: Performed By: #### M G, CMP, BNP, TSH, CRP #### [facility] [address] [place] [address] Dr. Miah Buck EGFR-NON AF SENEGALESE 32 mL/min/1.73m2 Critically low >=60 [facility] Comment on above: Performed By: #### M G, CMP, BNP, TSH, CRP #### [facility] [address] [place] [address] ABD/PELV W CONon [...] ROCK AVELAR Date: 2023-01-07 10:18 Normal [facility] SARS-CoV-2 (COVID-19) RNA EMMY+probe Ql (Unsp spec) Not detected Normal NOT DETECTED [facility] Comment on above: Result Comment: This test is not yet approved or cleared by the [place] FDA. When there are no FDA-approved or cleared tests available, and other criteria are met, FDA can make tests available under an emergency access mechanism called an Emergency Use Authorization (EUA). The EUA for this test is supported by the [place] of Health and Human Service's (HHS's) declaration [...] M G, CMP, BNP, TSH, CRP #### [facility] [address] [address] [address] HEAD WO CONon [...] LOS BAIRES Date: 2022-05-29 09:41 Normal [facility] CT NECK ST WO CONon 05-29-20 [...] ALISA HOLMAN Date: 2022-05-29 10:26 Normal [facility] VIT D 25-OH LABCORPon 2021 Vitamin D, 25-Hydroxy 27.6 ng/mL Critically low 30.0-100.0 [facility] Comment on above: Result Comment: Rima min D deficiency has been defined by the [place] of [employer] and an Endocrine Society practice guideline as a level of serum 25-OH vitamin D less than 20 ng/mL (1,2). The Endocrine Society went on to further define vitamin D insufficiency as a level between 21 and 29 ng/mL (2). 1. IOM ([place] of [employer]). 2010. Dietary reference intakes for calcium and D. [place]: The National Academies Press. 2. Su MF, Agapito HOSKINS, Mason KAUFMAN, et al. Evaluation, treatment, and prevention of vitamin D deficiency: an Endocrine Society clinical practice guideline. JCEM. 2010; 96(7):1911-30. Performed By: #### V ITADLC #### [facility] [address] [place] [address] Dr. Miah Buck XR CHEST 2 Von [...] ROCK AVELAR Date: 2022-05-24 07:37 Normal [facility] BNPon 05-23-2022 Natriuretic peptide B (Bld) [Mass/Vol] 53.0 pg/mL Normal <=900.0 [facility] Comment on above: Performed By: #### M G, CMP, BNP, TSH, CRP #### [facility] [address] [place] [address] Dr. Miah Buck CBC AUTO DIFFon 05-23-2022 BASO # 0.1 103/ul Normal 0.0-0.1 [facility] Comment on above: Performed By: #### A 1C #### [facility] [address] [place] [address] Dr. Miah Buck Basophils/100 WBC (Bld) 0.7 % Normal 0.2-2.0 [facility] Comment on above: Performed By: #### A 1C #### [facility] [address] [place] [address] Dr. Miah Buck EO # 0.3 103/ul Normal 0.0-0.7 [facility] Comment on above: Performed By: #### A 1C #### [facility] [address] [place] [address] Dr. Miah Buck Eosinophils/100 WBC (Bld) 4.0 % Normal 0.9-7.0 [facility] Comment on above: Performed By: #### A 1C #### [facility] [address] [place] [address] Dr. Miah Buck Erythrocyte distribution width (RBC) [Ratio] 13.4 % Normal 11.0-15.0 [facility] Comment on above: Performed By: #### A 1C #### [facility] [address] [place] [address] Dr. Miah Buck Hematocrit (Bld) [Volume fraction] 46.1 % Normal 42.0-54.0 [facility] Comment on above: Performed By: #### A 1C #### [facility] [address] [place] [address] Dr. Miah Buck Hemoglobin (Bld) [Mass/Vol] 15.5 g/dL Normal 14.0-18.0 [facility] Comment on above: Performed By: #### A 1C #### [facility] [address] [place] [address] Dr. Miah Buck IG # 0.03 10e3/ul Normal 0.00-0.03 [facility] Comment on above: Performed By: #### A 1C #### [facility] [address] [place] [address] Dr. Miah Buck IG % 0.4 % Normal 0.0-0.5 [facility] Comment on above: Performed By: #### A 1C #### [facility] [address] [place] [address] Dr. Miah Buck LYMPH # 2.0 103/ul Normal 1.2-3.8 [facility] Comment on above: Performed By: #### A 1C #### [facility] [address] [place] [address] Dr. Miah Buck Lymphocytes/100 WBC (Bld) 28.1 % Normal 20.5-60.0 [facility] Comment on above: Performed By: #### A 1C #### [facility] [address] [place] [address] Dr. Miah Buck MANUAL DIFF REQ NO Normal [facility] Comment on above: Performed By: #### A 1C #### [facility] [address] [place] [address] Dr. Miah Buck MCH (RBC) [Entitic mass] 31.8 pg Normal 25.9-34.0 [facility] Comment on above: Performed By: #### A 1C #### [facility] [address] [place] [address] Dr. Miah Buck MCHC (RBC) [Mass/Vol] 33.6 g/dL Normal 29.9-35.2 [facility] Comment on above: Performed By: #### A 1C #### [facility] [address] [place] [address] Dr. Miah Buck MCV (RBC) [Entitic vol] 94.7 fL Critically high 80.0-94.0 [facility] Comment on above: Performed By: #### A 1C #### [facility] [address] [place] [address] Dr. Miah Buck MONO # 0.5 103/ul Normal 0.3-0.8 [facility] Comment on above: Performed By: #### A 1C #### [facility] [address] [place] [address] Dr. Miah Buck Monocytes/100 WBC (Bld) 7.1 % Normal 1.7-12.0 [facility] Comment on above: Performed By: #### A 1C #### [facility] [address] [place] [address] Dr. Miah Buck NEUT # 4.3 103/ul Normal 1.4-6.5 [facility] Comment on above: Performed By: #### A 1C #### [facility] [address] [place] [address] Dr. Miah Buck Neutrophils/100 WBC (Bld) 59.7 % Normal 43.0-75.0 [facility] Comment on above: Performed By: #### A 1C #### [facility] [address] [place] [address] Dr. Miah Buck Platelet mean volume (Bld) [Entitic vol] 10.6 fL Normal 9.5-13.5 [facility] Comment on above: Performed By: #### A 1C #### [facility] [address] [place] [address] Dr. Miah Buck PLT 209 103/ul Normal 150-450 [facility] Comment on above: Performed By: #### A 1C #### [facility] [address] [place] [address] Dr. Miah Buck RBC 4.87 106/ul Normal 4.70-6.10 [facility] Comment on above: Performed By: #### A 1C #### [facility] [address] [place] [address] Dr. Miah Buck WBC 7.2 103/ul Normal 4.0-11.0 [facility] Comment on above: Performed By: #### A 1C #### [facility] [address] [place] [address] Dr. Miah Buck CRPon 05-23-2022 CRP 1.0 mg/dL Normal <=1.0 [facility] Comment on above: Performed By: #### M G, CMP, BNP, TSH, CRP #### [facility] [address] [address] [address] Miah Buck ECHOCARDIO M/2D COMPLETEon 0 05-23-2022 ECHOCARDIO M/2D COMPLETE Patient: ANDRY PIERRE Exam Date: 05/23/2022 : 1960 Gender:M Ordering : SOFYA HIDALGO [facility] Admission #: [id number] Family : DR SAY MCCORMICK . Order #: [id number] CLICK HERE TO VIEW EXAM ECHOCARDIOGRAM REPORT [...] Pearce M.D. on 05/23/2022 at 18:40 Normal [facility] MAGNESIUMon 05-23-2022 Magnesium [Mass/Vol] 2.3 mg/dL Normal 1.8-2.4 [facility] Comment on above: Performed By: #### M G, CMP, BNP, TSH, CRP #### [facility] [address] [place] [address] Dr. Miah Buck PROF 14(COMP METB)on 022 Albumin [Mass/Vol] 3.6 g/dL Normal 3.4-5.0 [facility] Comment on above: Performed By: #### M G, CMP, BNP, TSH, CRP #### [facility] [address] [place] [address] Dr. Miah Buck Albumin/Globulin [Mass ratio] 0.9 {ratio} [facility] Comment on above: Performed By: #### M G, CMP, BNP, TSH, CRP #### [facility] [address] [place] [address] Dr. Miah Buck ALP [Catalytic activity/Vol] 113 U/L Normal 46-116 [facility] Comment on above: Performed By: #### M G, CMP, BNP, TSH, CRP #### [facility] [address] [place] [address] Dr. Miah Buck ALT [Catalytic activity/Vol] 34 U/L Normal 16-63 [facility] Comment on above: Performed By: #### M G, CMP, BNP, TSH, CRP #### [facility] [address] [place] [address] Dr. Miah Buck Anion gap [Moles/Vol] 10.7 mmol/L Normal [facility] Comment on above: Performed By: #### M G, CMP, BNP, TSH, CRP #### [facility] [address] [place] [address] Dr. Miah Buck AST [Catalytic activity/Vol] 23 U/L Normal 15-37 [facility] Comment on above: Performed By: #### M G, CMP, BNP, TSH, CRP #### [facility] [address] [place] [address] Dr. Miah Buck Bilirubin [Mass/Vol] 0.3 mg/dL Normal 0.2-1.0 [facility] Comment on above: Performed By: #### M G, CMP, BNP, TSH, CRP #### [facility] [address] [place] [address] Dr. Miah Buck Calcium [Mass/Vol] 8.9 mg/dL Normal 8.5-10.1 [facility] Comment on above: Performed By: #### M G, CMP, BNP, TSH, CRP #### [facility] [address] [place] [address] Dr. Miah Buck Chloride [Moles/Vol] 105 mmol/L Normal 98-107 [facility] Comment on above: Performed By: #### M G, CMP, BNP, TSH, CRP #### [facility] [address] [place] [address] Dr. Miah Buck CO2 [Moles/Vol] 26.5 mmol/L Normal 21.0-32.0 [facility] Comment on above: Performed By: #### M G, CMP, BNP, TSH, CRP #### [facility] [address] [place] [address] Dr. Miah Buck Creatinine [Mass/Vol] 1.73 mg/dL Critically high 0.70-1.30 [facility] Comment on above: Performed By: #### M G, CMP, BNP, TSH, CRP #### [facility] [address] [place] [address] Dr. Miah Buck EGFR-AF SENEGALESE 49 mL/min/1.73m2 Critically low >=60 [facility] Comment on above: Performed By: #### M G, CMP, BNP, TSH, CRP #### [facility] [address] [place] [address] Dr. Miah Buck EGFR-NON AF SENEGALESE 40 mL/min/1.73m2 Critically low >=60 [facility] Comment on above: Performed By: #### M G, CMP, BNP, TSH, CRP #### [facility] [address] [address] [address] Miah Buck Globulin (S) [Mass/Vol] 4.0 g/dL Normal [facility] Comment on above: Performed By: #### M G, CMP, BNP, TSH, CRP #### [facility] [address] [address] [address] Miah Buck Glucose [Mass/Vol] 285 mg/dL Critically high 74-106 [facility] Comment on above: Performed By: #### M G, CMP, BNP, TSH, CRP #### [facility] [address] [place] [address] Dr. Miah Buck Potassium [Moles/Vol] 4.2 mmol/L Normal 3.5-5.1 [facility] Comment on above: Performed By: #### M G, CMP, BNP, TSH, CRP #### [facility] [address] [place] [address] Dr. Miah Buck Protein [Mass/Vol] 7.6 g/dL Normal 6.4-8.2 [facility] Comment on above: Performed By: #### M G, CMP, BNP, TSH, CRP #### [facility] [address] [place] [address] Dr. Miah Buck Sodium [Moles/Vol] 138 mmol/L Normal 136-145 [facility] Comment on above: Performed By: #### M G, CMP, BNP, TSH, CRP #### [facility] [address] [place] [address] Dr. Miah Buck Urea nitrogen [Mass/Vol] 23.0 mg/dL Critically high 7.0-18.0 [facility] Comment on above: Performed By: #### M G, CMP, BNP, TSH, CRP #### [facility] [address] [place] [address] Dr. Miah Buck Urea nitrogen/Creatinine [Mass ratio] 13.3 mg/mg Normal [facility] Comment on above: Performed By: #### M G, CMP, BNP, TSH, CRP #### [facility] [address] [place], [place] [id number] Dr. Miah Buck TSHon 05-23-2022 TSH 0.714 uIU/mL Normal 0.358-3.[address] [facility] Comment on above: Performed By: #### M G, CMP, BNP, TSH, CRP #### [facility] [address] [address] [address] Miah Buck VITAMIN B12on 05-23-2022 Cobalamin (Vitamin B12) [Mass/Vol] 930.0 pg/mL Normal 193.0-986.0 [facility] Comment on above: Performed By: #### V ITB12 #### [facility] [address] [address] [address] Miah Buck BASIC METABOLIC PANELon 07-07 Calcium [Mass/Vol] 8.3 mg/dL Low 8.6-10.3 [facility] Comment on above: Order Comment: No: D o not add to previous draw Performed By: #### 1 0070, [id number], [id number], [id number] #### [facility] [address] [place] [address], [place] Chloride [Moles/Vol] 105 mmol/L Normal 98-107 [facility] Comment on above: Order Comment: No: D o not add to previous draw Performed By: #### 1 0070, [id number], [id number], 06609 #### [facility] [address] [place] [address], [place] CO2 [Moles/Vol] 22 mmol/L Normal 21-31 [facility] Comment on above: Order Comment: No: D o not add to previous draw Performed By: #### 1 0070, [id number], 87194, 95327 #### [facility] [address] [place] [address], [place] Creatinine [Mass/Vol] 1.31 mg/dL High 0.70-1.30 [facility] Comment on above: Order Comment: No: D o not add to previous draw Performed By: #### 1 0070, [id number], 01821, 19926 #### [facility] [address] [place] [address], [place] eGFR- non- 56 ml/min/1.73sq m Abnormal >60 [facility] Comment on above: Order Comment: No: D o not add to previous draw Performed By: #### 1 0070, 71836, 62549, 65796 #### [facility] [address] [place] [address], [place] GFR/1.73 sq M.predicted among blacks MDRD (S/P/Bld) [Vol rate/Area] mL/min/{1.73_m2} Normal >60 [facility] Comment on above: Order Comment: No: D o not add to previous draw Performed By: #### 1 0070, 78315, 99231, 91104 #### [facility] [address] [place] [address], [place] Glucose [Mass/Vol] 231 mg/dL High 70-100 [facility] Comment on above: Order Comment: No: D o not add to previous draw Performed By: #### 1 0070, 57336, 06132, 48553 #### [facility] [address] [place] [address], [place] Potassium [Moles/Vol] 3.6 mmol/L Normal 3.5-5.1 [facility] Comment on above: Order Comment: No: D o not add to previous draw Performed By: #### 1 0070, 88775, 06322, 44645 #### [facility] [address] [place] [address], [place] Sodium [Moles/Vol] 139 mmol/L Normal 136-145 [facility] Comment on above: Order Comment: No: D o not add to previous draw Performed By: #### 1 0070, 74284, 38716, 03339 #### [facility] [address] [place] [address], [place] Urea nitrogen [Mass/Vol] 17 mg/dL Normal 7-25 [facility] Comment on above: Order Comment: No: D o not add to previous draw Performed By: #### 1 0070, 08517, 69448, 66786 #### [facility] [address] [place] [address], [facility] CBC W/DIFFon 07-27-2021 ABS IMM GRANS 0.1 10*3/uL Normal 0.0-0.2 [facility] Comment on above: Performed By: #### 1 0070, 79584, 52279, 18324 #### [facility] [address] [place] [address], [facility] ABS NEUTROPHILS 10.2 10*3/uL High 1.6-7.6 [facility] Comment on above: Performed By: #### 1 0070, 88391, 77269, 97086 #### [facility] [address] [place] [address], [facility] Basophils (Bld) [#/Vol] 0.0 10*3/uL Normal 0.0-0.2 [facility] Comment on above: Performed By: #### 1 0070, 02876, 96749, 65177 #### [facility] [address] [place] [address], [facility] Basophils/100 WBC (Bld) 0.3 % Normal 0.0-1.0 [facility] Comment on above: Performed By: #### 1 0070, 78680, 67158, 05328 #### [facility] [address] [place] [address], [facility] Eosinophils (Bld) [#/Vol] 0.0 10*3/uL Normal 0.0-0.5 [facility] Comment on above: Performed By: #### 1 0070, 27355, 32200, 10902 #### [facility] [address] [place] [address], [facility] Eosinophils/100 WBC (Bld) 0.0 % Normal 0.0-6.0 [facility] Comment on above: Performed By: #### 1 0070, 35465, 83743, 80745 #### [facility] [address] Erythrocyte distribution width (RBC) [Ratio] 13.2 % Normal 11.5-15.0 [facility] Comment on above: Performed By: #### 1 0, 55689, 61818, 33689 #### [facility] [address] Hematocrit (Bld) [Volume fraction] 44.2 % Normal 39.0-50.0 [facility] Comment on above: Performed By: #### 1 0, 10562, 59942, 30212 #### [facility] [address] Hemoglobin (Bld) [Mass/Vol] 14.9 g/dL Normal 13.0-17.0 [facility] Comment on above: Performed By: #### 1 0, 39630, 18977, 03863 #### [facility] [address] IMMATURE GRANS 0.7 % Normal 0.0-1.0 [facility] Comment on above: Performed By: #### 1 0, 05033, 80396, 93868 #### [facility] [address] Lymphocytes (Bld) [#/Vol] 1.0 10*3/uL Low 1.2-4.0 [facility] Comment on above: Performed By: #### 1 0070, 36635, 16853, 60730 #### [facility] [address] Lymphocytes/100 WBC (Bld) 8.2 % Low 20.0-45.0 [facility] Comment on above: Performed By: #### 1 0070, 01402, 59707, 72112 #### [facility] [address] [place] [address], [facility] MCH (RBC) [Entitic mass] 31.2 pg Normal 27.0-33.0 [facility] Comment on above: Performed By: #### 1 0070, 30237, 92952, 54857 #### [facility] [address] [place] [address], [facility] MCHC (RBC) [Mass/Vol] 33.7 g/dL Normal 32.0-35.0 [facility] Comment on above: Performed By: #### 1 0070, 67153, 60008, 71768 #### [facility] [address] [facility] [place] [address], [facility] MCV (RBC) [Entitic vol] 92.7 fL Normal 82.0-98.0 [facility] Comment on above: Performed By: #### 1 0070, 20759, 55014, 69663 #### [facility] [address] [facility] [place] [address], [facility] Monocytes (Bld) [#/Vol] 0.9 10*3/uL Normal 0.1-1.0 [facility] Comment on above: Performed By: #### 1 0070, 26121, 56278, 02605 #### [facility] [address] [facility] [address] MONOS 7.0 % Normal 5.0-12.0 [facility] Comment on above: Performed By: #### 1 0070, 64483, 95133, 35354 #### [facility] [address] [facility] [place] [address], [facility] Neutrophils/100 WBC (Bld) 83.8 % High 40.0-72.0 [facility] Comment on above: Performed By: #### 1 0070, 56758, 30639, 54076 #### [facility] [address] [facility] [address], [facility] Nucleated RBC/100 WBC (Bld) [Ratio] 0 % Normal 0-0 [facility] Comment on above: Performed By: #### 1 0070, 45044, 39048, 97054 #### [facility] [address] [place] [address], [facility] PLAT CNT 198 10*3/uL Normal 150-400 [facility] Comment on above: Performed By: #### 1 0070, 57941, 30381, 04116 #### [facility] [address] [place] [address], [facility] RBC (Bld) [#/Vol] 4.77 10*6/uL Normal 4.20-5.70 [facility] Comment on above: Performed By: #### 1 0070, 54528, 00884, 32285 #### [facility] [address] [place] [address], [facility] WBC (Bld) [#/Vol] 12.15 10*3/uL High 4.00-10.60 [facility] Comment on above: Performed By: #### 1 0070, 31659, 42339, 47638 #### [facility] [address] [place] [address], [facility] LIVER BATTERYon 07-27-2021 Albumin [Mass/Vol] 3.3 g/dL Low 3.5-5.7 [facility] Comment on above: Order Comment: No: D o not add to previous draw Performed By: #### 1 0070, 75403, 15767, 26087 #### [facility] [address] [place] [address], [facility] ALKALINE PHOSPH 124 IU/L High 34-104 [facility] Comment on above: Order Comment: No: D o not add to previous draw Performed By: #### 1 0070, 94439, 84051, 69784 #### [facility] [address] [place] [address], [facility] ALT [Catalytic activity/Vol] 58 U/L High 7-52 [facility] Comment on above: Order Comment: No: D o not add to previous draw Performed By: #### 1 0070, 07011, 07490, 17200 #### [facility] [address] [place] [address], [facility] AST [Catalytic activity/Vol] 48 U/L High 13-39 [facility] Comment on above: Order Comment: No: D o not add to previous draw Performed By: #### 1 0070, 59931, 43975, 76401 #### [facility] [address] [place] [id number], [facility] Bilirubin [Mass/Vol] 0.8 mg/dL Normal 0.3-1.0 [facility] Comment on above: Order Comment: No: D o not add to previous draw Performed By: #### 1 0070, 17329, 73707, 40004 #### [facility] [address] [place] [address], [facility] Bilirubin.direct [Mass/Vol] 0.3 mg/dL High 0.0-0.2 [facility] Comment on above: Order Comment: No: D o not add to previous draw Performed By: #### 1 0070, 69413, 01998, 66284 #### [facility] [address] [place] [address], [facility] Protein [Mass/Vol] 6.2 g/dL Normal 6.0-8.3 [facility] Comment on above: Order Comment: No: D o not add to previous draw Performed By: #### 1 0070, 91052, 48490, 01730 #### [facility] [address] [place] [address], [place] MAGNESIUM BLOODon 07-27-2021 Magnesium [Mass/Vol] 1.8 mg/dL Low 1.9-2.7 [facility] Comment on above: Order Comment: No: D o not add to previous draw Performed By: #### 1 0070, 87113, 19633, 52318 #### [facility] [address] [place] [address], [facility] PHOSPHORUS BLOODon 1 Phosphate [Mass/Vol] 2.9 mg/dL Normal 2.5-5.0 [facility] Comment on above: Order Comment: No: D o not add to previous draw Performed By: #### 1 0070, 05275, 07879, 36122 #### [facility] [address] [place] [address], [facility] POC GLUCOSE LABon 07-27-2021 Glucose [Mass/Vol] 260 mg/dL High 70-100 [facility] Comment on above: Performed By: #### 8 5499 #### [facility] [address] [place] [address], [facility] Glucose [Mass/Vol] 225 mg/dL High 70-100 [facility] Comment on above: Performed By: #### 1 0070, 70742, 40241, 46947 #### [facility] [address] [place] [address], [facility] PROTHROMBIN TIMEon 1 INR Coag (PPP) [Relative time] 1.22 {INR} High 0.91-1.16 [facility] Comment on above: Order Comment: No: [...] CHEST 1995;108:231S-246S. Performed By: #### 1 0070, 67603, 72143, 69960 #### [facility] [address] [place] [address], [facility] PT Coag (PPP) [Time] 15.4 s High 12.3-14.8 [facility] Comment on above: Order Comment: No: D o not add to previous draw Result Comment: ALL RESULTS MUST BE INTERPRETED WITH RESPECT TO BLOOD DRAWING ARTIFACT OR DILUTION ERROR OF ANTICOAGULANT AT THE TIME OF SAMPLING. Performed By: #### 1 0070, 91967, 20040, 61155 #### [facility] [address] [place] [address], [facility] BASIC METABOLIC PANELon 10-2 Calcium [Mass/Vol] 8.5 mg/dL Low 8.6-10.3 [facility] Comment on above: Order Comment: No: D o not add to previous draw Performed By: #### 8 5499 #### [facility] [address] [place] [address], [facility] Chloride [Moles/Vol] 108 mmol/L High 98-107 [facility] Comment on above: Order Comment: No: D o not add to previous draw Performed By: #### 8 5499 #### [facility] [address] [place] [address], [place] CO2 [Moles/Vol] 24 mmol/L Normal 21-31 [facility] Comment on above: Order Comment: No: D o not add to previous draw Performed By: #### 8 5499 #### [facility] [address] [place] [address], [place] Creatinine [Mass/Vol] 1.23 mg/dL Normal 0.70-1.30 [facility] Comment on above: Order Comment: No: D o not add to previous draw Performed By: #### 8 5499 #### [facility] [address] [place] [address], [place] eGFR- non- 60 ml/min/1.73sq m Abnormal >60 [facility] Comment on above: Order Comment: No: D o not add to previous draw Performed By: #### 8 5499 #### [facility] [address] [place] [address], [place] GFR/1.73 sq M.predicted among blacks MDRD (S/P/Bld) [Vol rate/Area] mL/min/{1.73_m2} Normal >60 [facility] Comment on above: Order Comment: No: D o not add to previous draw Performed By: #### 8 5499 #### [facility] [address] [place] [address], [place] Glucose [Mass/Vol] 141 mg/dL High 70-100 [facility] Comment on above: Order Comment: No: D o not add to previous draw Performed By: #### 8 5499 #### [facility] [address] [place] [address], [place] Potassium [Moles/Vol] 3.5 mmol/L Normal 3.5-5.1 [facility] Comment on above: Order Comment: No: D o not add to previous draw Performed By: #### 8 5499 #### [facility] [address] [place] [address], [place] Sodium [Moles/Vol] 139 mmol/L Normal 136-145 [facility] Comment on above: Order Comment: No: D o not add to previous draw Performed By: #### 8 5499 #### [facility] [address] [place] [address], [place] Urea nitrogen [Mass/Vol] 18 mg/dL Normal 7-25 [facility] Comment on above: Order Comment: No: D o not add to previous draw Performed By: #### 8 5499 #### [facility] [address] [place] [address], [facility] CBC COMPLETE BLOOD COUNTon Erythrocyte distribution width (RBC) [Ratio] 13.2 % Normal 11.5-15.0 [facility] Comment on above: Order Comment: No: D o not add to previous draw Performed By: #### 1 0070, 82565, 51694, 14924 #### [facility] [address] [place] [address], [facility] Hematocrit (Bld) [Volume fraction] 42.7 % Normal 39.0-50.0 [facility] Comment on above: Order Comment: No: D o not add to previous draw Performed By: #### 1 0070, 23984, 76661, 48644 #### [facility] [address] [place] [address], [facility] Hemoglobin (Bld) [Mass/Vol] 14.5 g/dL Normal 13.0-17.0 [facility] Comment on above: Order Comment: No: D o not add to previous draw Performed By: #### 1 0070, 42552, 57610, 33104 #### [facility] [address] [place] [address], [facility] MCH (RBC) [Entitic mass] 32.0 pg Normal 27.0-33.0 [facility] Comment on above: Order Comment: No: D o not add to previous draw Performed By: #### 1 0070, 60338, 59025, 49677 #### [facility] [address] [place] [address], [facility] MCHC (RBC) [Mass/Vol] 34.0 g/dL Normal 32.0-35.0 [facility] Comment on above: Order Comment: No: D o not add to previous draw Performed By: #### 1 0070, 11968, 42939, 43434 #### [facility] [address] [place] [address], [facility] MCV (RBC) [Entitic vol] 94.3 fL Normal 82.0-98.0 [facility] Comment on above: Order Comment: No: D o not add to previous draw Performed By: #### 1 0070, 77174, 15728, 76948 #### [facility] [address] [place] [address], [facility] Nucleated RBC/100 WBC (Bld) [Ratio] 0 % Normal 0-0 [facility] Comment on above: Order Comment: No: D o not add to previous draw Performed By: #### 1 0070, 07084, 79000, 01614 #### [facility] [address] [place] [address], [facility] PLAT CNT 179 10*3/uL Normal 150-400 [facility] Comment on above: Order Comment: No: D o not add to previous draw Performed By: #### 1 0070, 93307, 08498, 43828 #### [facility] [address] [facility] [place] [address], [facility] RBC (Bld) [#/Vol] 4.53 10*6/uL Normal 4.20-5.70 [facility] Comment on above: Order Comment: No: D o not add to previous draw Performed By: #### 1 0070, 94564, 59596, 98021 #### [facility] [address] [place] [id number], [place] WBC (Bld) [#/Vol] 7.86 10*3/uL Normal 4.00-10.60 [facility] Comment on above: Order Comment: No: D o not add to previous draw Performed By: #### 1 0070, 70390, 25441, 89149 #### [facility] [address] [place] [address], [place] LIVER BATTERYon 07-26-2021 Albumin [Mass/Vol] 3.2 g/dL Low 3.5-5.7 [facility] Comment on above: Order Comment: No: D o not add to previous draw Performed By: #### 0 0071, 51701 #### [facility] [address] [place] [address], [place] ALKALINE PHOSPH 114 IU/L High 34-104 [facility] Comment on above: Order Comment: No: D o not add to previous draw Performed By: #### 0 0071, 38091 #### [facility] [address] [place] [address], [place] ALT [Catalytic activity/Vol] 37 U/L Normal 7-52 [facility] Comment on above: Order Comment: No: D o not add to previous draw Performed By: #### 0 0071, 61505 #### [facility] [address] [place] [address], [place] AST [Catalytic activity/Vol] 28 U/L Normal 13-39 [facility] Comment on above: Order Comment: No: D o not add to previous draw Performed By: #### 0 0071, 50979 #### [facility] [address] [place] [address], [place] Bilirubin [Mass/Vol] 0.6 mg/dL Normal 0.3-1.0 [facility] Comment on above: Order Comment: No: D o not add to previous draw Performed By: #### 0 0071, 26225 #### [facility] [address] [place] [address], [place] Bilirubin.direct [Mass/Vol] 0.1 mg/dL Normal 0.0-0.2 [facility] Comment on above: Order Comment: No: D o not add to previous draw Performed By: #### 0 0071, 86226 #### [facility] [address] [place] [address], [place] Protein [Mass/Vol] 6.3 g/dL Normal 6.0-8.3 [facility] Comment on above: Order Comment: No: D o not add to previous draw Performed By: #### 0 0071, 21733 #### [facility] [address] Operative Reporton 1 Operative Report MR#: [id number] [facility] Pt. Name: Andry Pierre Room #: [id number] Discharge Date: Birthdate: 1960 OPERATIVE REPORT DATE [...] Olivier M.D. Date Trans: 07/26/2021 04:31 P/ [id number] cc: Say Mccormick M.D. [address], [facility] [id number] Normal [facility] POC GLUCOSE LABon 07-26-2021 Glucose [Mass/Vol] 155 mg/dL High 70-100 [facility] Comment on above: Performed By: #### 1 0070, 96630, 23016, 48176 #### [facility] [address] [facility] [place] [address], [place] Glucose [Mass/Vol] 149 mg/dL High 70-100 [facility] Comment on above: Performed By: #### 8 5499 #### [facility] [address] [place] [address], [place] Glucose [Mass/Vol] 123 mg/dL High 70-100 [facility] Comment on above: Performed By: #### 1 0070, 02351, 85797, 83812 #### [facility] [address] [facility] [place] [address], [place] Glucose [Mass/Vol] 126 mg/dL High 70-100 [facility] Comment on above: Performed By: #### 8 5499 #### [facility] [address] [facility] [address] PROTHROMBIN TIMEon 1 INR Coag (PPP) [Relative time] 1.20 {INR} High 0.91-1.16 [facility] Comment on above: Order Comment: No: [...] CHEST 1995;108:231S-246S. Performed By: #### 1 0070, 02505, 10955, 09473 #### [facility] [address] [facility] [place] [address], [facility] PT Coag (PPP) [Time] 15.2 s High 12.3-14.8 [facility] Comment on above: Order Comment: No: D o not add to previous draw Result Comment: ALL RESULTS MUST BE INTERPRETED WITH RESPECT TO BLOOD DRAWING ARTIFACT OR DILUTION ERROR OF ANTICOAGULANT AT THE TIME OF SAMPLING. Performed By: #### 1 0070, 91910, 73260, 04162 #### [facility] [address] APTTon 07-25-2021 aPTT Coag (Bld) [Time] 29.3 s Normal 25.0-35.0 [facility] Comment on above: Order Comment: No: [...] THIS PURPOSE. Performed By: #### 1 0070, 89431, 23508, 96440 #### [facility] [address] aPTT Coag (Bld) [Time] 28.7 s Normal 25.0-35.0 [facility] Comment on above: Order Comment: No: [...] THIS PURPOSE. Performed By: #### 1 0070, 12918, 14343, 98333 #### [facility] [address] BASIC METABOLIC PANELon 10-2 -2020 Calcium [Mass/Vol] 8.3 mg/dL Low 8.6-10.3 [facility] Comment on above: Order Comment: No: D o not add to previous draw Performed By: #### 1 0070, 81046, 69616, 87160 #### [facility] [address] Chloride [Moles/Vol] 111 mmol/L High 98-107 [facility] Comment on above: Order Comment: No: D o not add to previous draw Performed By: #### 1 0070, 52799, 08594, 57422 #### [facility] [address] [place] [address], [facility] CO2 [Moles/Vol] 26 mmol/L Normal 21-31 [facility] Comment on above: Order Comment: No: D o not add to previous draw Performed By: #### 1 0070, 86473, 64419, 01384 #### [facility] [address] [place] [address], [facility] Creatinine [Mass/Vol] 1.25 mg/dL Normal 0.70-1.30 [facility] Comment on above: Order Comment: No: D o not add to previous draw Performed By: #### 1 0070, 89813, 60894, 74950 #### [facility] [address] [place] [address], [facility] eGFR- non- 59 ml/min/1.73sq m Abnormal >60 [facility] Comment on above: Order Comment: No: D o not add to previous draw Performed By: #### 1 0070, 17748, 58908, 10920 #### [facility] [address] [place] [address], [facility] GFR/1.73 sq M.predicted among blacks MDRD (S/P/Bld) [Vol rate/Area] mL/min/{1.73_m2} Normal >60 [facility] Comment on above: Order Comment: No: D o not add to previous draw Performed By: #### 1 0070, 57202, 73645, 96488 #### [facility] [address] [place] [address], [facility] Glucose [Mass/Vol] 107 mg/dL High 70-100 [facility] Comment on above: Order Comment: No: D o not add to previous draw Performed By: #### 1 0070, 49610, 34219, 90960 #### [facility] [address] [place] [id number], [facility] Potassium [Moles/Vol] 3.6 mmol/L Normal 3.5-5.1 [facility] Comment on above: Order Comment: No: D o not add to previous draw Performed By: #### 1 0070, 68286, 45672, 25176 #### [facility] [address] [place] [address], [place] Sodium [Moles/Vol] 143 mmol/L Normal 136-145 [facility] Comment on above: Order Comment: No: D o not add to previous draw Performed By: #### 1 0070, 74521, 23415, 45282 #### [facility] [address] [place] [id number], [facility] Urea nitrogen [Mass/Vol] 22 mg/dL Normal 7-25 [facility] Comment on above: Order Comment: No: D o not add to previous draw Performed By: #### 1 0070, 22869, 55644, 86736 #### [facility] [address] [place] [address], [facility] CBC COMPLETE BLOOD COUNTon Erythrocyte distribution width (RBC) [Ratio] 13.3 % Normal 11.5-15.0 [facility] Comment on above: Order Comment: No: D o not add to previous draw Performed By: #### 1 0070, 45417, 69937, 22271 #### [facility] [address] [place] [address], [facility] Hematocrit (Bld) [Volume fraction] 46.9 % Normal 39.0-50.0 [facility] Comment on above: Order Comment: No: D o not add to previous draw Performed By: #### 1 0070, 99908, 46450, 70494 #### [facility] [address] [place] [address], [place] Hemoglobin (Bld) [Mass/Vol] 15.4 g/dL Normal 13.0-17.0 [facility] Comment on above: Order Comment: No: D o not add to previous draw Performed By: #### 1 0070, 48828, 02101, 73431 #### [facility] [address] [facility] [place] [address], [facility] MCH (RBC) [Entitic mass] 31.3 pg Normal 27.0-33.0 [facility] Comment on above: Order Comment: No: D o not add to previous draw Performed By: #### 1 0070, 31577, 20491, 27729 #### [facility] [address] [facility] [place] [address], [facility] MCHC (RBC) [Mass/Vol] 32.8 g/dL Normal 32.0-35.0 [facility] Comment on above: Order Comment: No: D o not add to previous draw Performed By: #### 1 0070, 61800, 67309, 41729 #### [facility] [address] [facility] [place] [address], [facility] MCV (RBC) [Entitic vol] 95.3 fL Normal 82.0-98.0 [facility] Comment on above: Order Comment: No: D o not add to previous draw Performed By: #### 1 0070, 73770, 95731, 06593 #### [facility] [address] [facility] [place] [address], [facility] Nucleated RBC/100 WBC (Bld) [Ratio] 0 % Normal 0-0 [facility] Comment on above: Order Comment: No: D o not add to previous draw Performed By: #### 1 0070, 07404, 50663, 40576 #### [facility] [address] [place] [address], [facility] PLAT CNT 183 10*3/uL Normal 150-400 [facility] Comment on above: Order Comment: No: D o not add to previous draw Performed By: #### 1 0070, [id number], [id number], [id number] #### [facility] [address] [facility] [place] [address], [facility] RBC (Bld) [#/Vol] 4.92 10*6/uL Normal 4.20-5.70 [facility] Comment on above: Order Comment: No: D o not add to previous draw Performed By: #### 1 0070, [id number], [id number], [id number] #### [facility] [address] [place] [address], [facility] WBC (Bld) [#/Vol] 9.70 10*3/uL Normal 4.00-10.60 [facility] Comment on above: Order Comment: No: D o not add to previous draw Performed By: #### 1 0070, [id number], [id number], [id number] #### [facility] [facility] [address] [place] [id number], [facility] LIPASE BLOODon 07-25-2021 LIPASE 34 Units/L Normal 11-82 [facility] Comment on above: Order Comment: No: D o not add to previous draw Performed By: #### 1 0070, 58090, 81693, 84255 #### [facility] [address] [place] [address], [facility] LIVER BATTERYon 07-25-2021 Albumin [Mass/Vol] 3.0 g/dL Low 3.5-5.7 [facility] Comment on above: Order Comment: No: D o not add to previous draw Performed By: #### 1 0070, 95966, 51559, 66136 #### [facility] [address] [place] [address], [facility] ALKALINE PHOSPH 113 IU/L High 34-104 [facility] Comment on above: Order Comment: No: D o not add to previous draw Performed By: #### 1 0070, 08979, 37588, 89942 #### [facility] [address] [place] [address], [facility] ALT [Catalytic activity/Vol] 37 U/L Normal 7-52 [facility] Comment on above: Order Comment: No: D o not add to previous draw Performed By: #### 1 0070, 48102, 56920, 20603 #### [facility] [address] [place] [address], [place] AST [Catalytic activity/Vol] 36 U/L Normal 13-39 [facility] Comment on above: Order Comment: No: D o not add to previous draw Performed By: #### 1 0070, 68773, 06015, 23017 #### [facility] [address] [place] [address], [place] Bilirubin [Mass/Vol] 0.6 mg/dL Normal 0.3-1.0 [facility] Comment on above: Order Comment: No: D o not add to previous draw Performed By: #### 1 0070, 07668, 38981, 08225 #### [facility] [address] [place] [address], [place] Bilirubin.direct [Mass/Vol] 0.1 mg/dL Normal 0.0-0.2 [facility] Comment on above: Order Comment: No: D o not add to previous draw Performed By: #### 1 0070, 50548, 27732, 85682 #### [facility] [address] [place] [address], [place] Protein [Mass/Vol] 5.3 g/dL Low 6.0-8.3 [facility] Comment on above: Order Comment: No: D o not add to previous draw Performed By: #### 1 0070, 58769, 83723, 15954 #### [facility] [address] [place] [address], [place] POC GLUCOSE LABon 07-25-2021 Glucose [Mass/Vol] 388 mg/dL High 70-100 [facility] Comment on above: Performed By: #### 1 0070, 95641, 63860, 26411 #### [facility] [address] [place] [address], [place] Glucose [Mass/Vol] 173 mg/dL High 70-100 [facility] Comment on above: Performed By: #### 8 5499 #### [facility] [address] Glucose [Mass/Vol] 178 mg/dL High 70-100 [facility] Comment on above: Performed By: #### 8 5499 #### [facility] [address] [facility] [address] Glucose [Mass/Vol] 106 mg/dL High 70-100 [facility] Comment on above: Performed By: #### 1 0070, 98938, 30817, 24354 #### [facility] [address] PROTHROMBIN TIMEon 10 1 INR Coag (PPP) [Relative time] 1.30 {INR} High 0.91-1.16 [facility] Comment on above: Order Comment: No: [...] CHEST 1995;108:231S-246S. Performed By: #### 1 0070, 33593, 29668, 02458 #### [facility] [address] [facility] [place] [address], [facility] PT Coag (PPP) [Time] 16.2 s High 12.3-14.8 [facility] Comment on above: Order Comment: No: D o not add to previous draw Result Comment: ALL RESULTS MUST BE INTERPRETED WITH RESPECT TO BLOOD DRAWING ARTIFACT OR DILUTION ERROR OF ANTICOAGULANT AT THE TIME OF SAMPLING. Performed By: #### 1 0070, 80744, 97805, 67521 #### [facility] [address] UFH HEPARIN ASSAYon 07-25-20 UNFRACTIONATED HEPARIN <0.10 Critically low 0.30-0.70 [facility] Comment on above: Result Comment: Resu lts called. [place]ur[place] [address], 25-Jul-2021. Patient is not on anything that would raise the uFH value per nurse Caitlin. Rivaroxaban and Apixaban will interfere with the anti Xa assay used to monitor UFH and LMWH. Performed By: #### 1 0070, 21418, 69579, 29025 #### [facility] [address] [facility] [address], [facility] UNFRACTIONATED HEPARIN <0.10 Critically low 0.30-0.70 [facility] Comment on above: Result Comment: Resu lt checked and called. Accurately read back by Caitlin Koch RN at 1024 Rivaroxaban and Apixaban will interfere with the anti Xa assay used to monitor UFH and LMWH. Performed By: #### 1 0070, 04728, 71307, 60497 #### [facility] [address] [place] [address], [facility] BASIC METABOLIC PANELon 07-06 Calcium [Mass/Vol] 8.7 mg/dL Normal 8.6-10.3 [facility] Comment on above: Order Comment: No: D o not add to previous draw Performed By: #### 0 0071, 75424 #### [facility] [address] [place] [address], [place] Chloride [Moles/Vol] 105 mmol/L Normal 98-107 [facility] Comment on above: Order Comment: No: D o not add to previous draw Performed By: #### 0 0071, 28891 #### [facility] [address] [place] [address], [place] CO2 [Moles/Vol] 30 mmol/L Normal 21-31 [facility] Comment on above: Order Comment: No: D o not add to previous draw Performed By: #### 0 0071, 39926 #### [facility] [address] [place] [address], [place] Creatinine [Mass/Vol] 1.52 mg/dL High 0.70-1.30 [facility] Comment on above: Order Comment: No: D o not add to previous draw Performed By: #### 0 0071, 04714 #### [facility] [address] [place] [address], [place] eGFR- 57 ml/min/1.73sq m Abnormal >60 [facility] Comment on above: Order Comment: No: D o not add to previous draw Performed By: #### 0 0071, 85313 #### [facility] [address] [place] [address], [place] eGFR- non- 47 ml/min/1.73sq m Abnormal >60 [facility] Comment on above: Order Comment: No: D o not add to previous draw Performed By: #### 0 0071, 75357 #### [facility] [address] [place] [address], [place] Glucose [Mass/Vol] 331 mg/dL High 70-100 [facility] Comment on above: Order Comment: No: D o not add to previous draw Performed By: #### 0 0071, 28302 #### [facility] [address] [place] [address], [place] Potassium [Moles/Vol] 4.3 mmol/L Normal 3.5-5.1 [facility] Comment on above: Order Comment: No: D o not add to previous draw Performed By: #### 0 0071, 51227 #### [facility] [address] [place] [id number], [facility] Sodium [Moles/Vol] 139 mmol/L Normal 136-145 [facility] Comment on above: Order Comment: No: D o not add to previous draw Performed By: #### 0 0071, 87283 #### [facility] [address] [place] [address], [facility] Urea nitrogen [Mass/Vol] 26 mg/dL High 7-25 [facility] Comment on above: Order Comment: No: D o not add to previous draw Performed By: #### 0 0071, 67901 #### [facility] [address] [place] [id number] CBC COMPLETE BLOOD COUNTon - Erythrocyte distribution width (RBC) [Ratio] 13.2 % Normal 11.5-15.0 [facility] Comment on above: Order Comment: No: D o not add to previous draw Performed By: #### 1 0070, 69004, 54632, 42075 #### [facility] [address] [place] [address], [facility] Hematocrit (Bld) [Volume fraction] 42.9 % Normal 39.0-50.0 [facility] Comment on above: Order Comment: No: D o not add to previous draw Performed By: #### 1 0070, 69453, 90145, 88287 #### [facility] [address] [place] [address], [facility] Hemoglobin (Bld) [Mass/Vol] 13.7 g/dL Normal 13.0-17.0 [facility] Comment on above: Order Comment: No: D o not add to previous draw Performed By: #### 1 0070, 28827, 02311, 67707 #### [facility] [address] [place] [address], [facility] MCH (RBC) [Entitic mass] 30.9 pg Normal 27.0-33.0 [facility] Comment on above: Order Comment: No: D o not add to previous draw Performed By: #### 1 0070, 54285, 10519, 32977 #### [facility] [address] [facility] [place] [address], [facility] MCHC (RBC) [Mass/Vol] 31.9 g/dL Low 32.0-35.0 [facility] Comment on above: Order Comment: No: D o not add to previous draw Performed By: #### 1 0070, 57388, 37350, 62116 #### [facility] [address] [facility] [place] [address], [facility] MCV (RBC) [Entitic vol] 96.6 fL Normal 82.0-98.0 [facility] Comment on above: Order Comment: No: D o not add to previous draw Performed By: #### 1 0070, 39377, 78757, 29571 #### [facility] [address] [place] [address], [facility] Nucleated RBC/100 WBC (Bld) [Ratio] 0 % Normal 0-0 [facility] Comment on above: Order Comment: No: D o not add to previous draw Performed By: #### 1 0070, 03974, 75318, 98334 #### [facility] [address] [place] [address], [facility] PLAT CNT 184 10*3/uL Normal 150-400 [facility] Comment on above: Order Comment: No: D o not add to previous draw Performed By: #### 1 0070, 09436, 04711, 01934 #### [facility] [address] [facility] [place] [address], [facility] RBC (Bld) [#/Vol] 4.44 10*6/uL Normal 4.20-5.70 [facility] Comment on above: Order Comment: No: D o not add to previous draw Performed By: #### 1 0070, 57335, 62797, 40104 #### [address] WBC (Bld) [#/Vol] 8.42 10*3/uL Normal 4.00-10.60 [facility] Comment on above: Order Comment: No: D o not add to previous draw Performed By: #### 1 0070, 93339, 02203, 53295 #### [facility] [address] [place] [address], [facility] ERCPon 07-24-2021 ERCP [facility] Department of Radiology [address] [place] [id number] Patient Name: ANDRY PIERRE : 1960 Sex: M Age: Race: White Pt. Location: [id number] Patient Status: I Ordered Date: 07/24/2021 7:00:00 [...] details. Electronically signed: Khoa Chahal. Transcribed by: [email or web address], User Resident: Electronically Signed by: KHOA LENORE @ 07/25/2021 08:48 AM Normal [facility] Comment on above: Order Comment: ERCP Endoscopy Reporton Endoscopy Report MR#: [id number] [facility] Pt. Name: Andry Pierre Surgery Date: 07/24/2021 Room #: 4CD [id number] Date of : 1960 PROCEDURE NOTE ATTENDING: Amy Remy M.D. CORPORATE WEBMASTER: Cyrus Decker MD PROCEDURE: ERCP with biliary [...] Decker MD Date Trans: 07/24/2021 09:24 P/michaela [id number] cc: Say Mccormick M.D. [address] [facility] [id number] Normal [facility] LIVER BATTERYon 07-24-2021 Albumin [Mass/Vol] 3.3 g/dL Low 3.5-5.7 [facility] Comment on above: Order Comment: No: D o not add to previous draw Performed By: #### 0 0071, 14260 #### [facility] [address] [place] [address], [place] ALKALINE PHOSPH 106 IU/L High 34-104 [facility] Comment on above: Order Comment: No: D o not add to previous draw Performed By: #### 0 0071, 62546 #### [facility] [address] [place] [address], [place] ALT [Catalytic activity/Vol] 26 U/L Normal 7-52 [facility] Comment on above: Order Comment: No: D o not add to previous draw Performed By: #### 0 0071, 56446 #### [facility] [address] [place] [address], [place] AST [Catalytic activity/Vol] 17 U/L Normal 13-39 [facility] Comment on above: Order Comment: No: D o not add to previous draw Performed By: #### 0 0071, 01522 #### [facility] [address] [place] [address], [place] Bilirubin [Mass/Vol] 0.3 mg/dL Normal 0.3-1.0 [facility] Comment on above: Order Comment: No: D o not add to previous draw Performed By: #### 0 0071, 16118 #### [facility] [address] [place] [address], [place] Bilirubin.direct [Mass/Vol] 0.0 mg/dL Normal 0.0-0.2 [facility] Comment on above: Order Comment: No: D o not add to previous draw Performed By: #### 0 0071, 02709 #### [facility] [address] [place] [address], [place] Protein [Mass/Vol] 6.1 g/dL Normal 6.0-8.3 [facility] Comment on above: Order Comment: No: D o not add to previous draw Performed By: #### 0 0071, 29810 #### [facility] [address] [place] [address], [facility] POC GLUCOSE LABon 07-24-2021 Glucose [Mass/Vol] 89 mg/dL Normal 70-100 [facility] Comment on above: Performed By: #### 8 5499 #### [facility] [address] [place] [address], [place] Glucose [Mass/Vol] 89 mg/dL Normal 70-100 [facility] Comment on above: Performed By: #### 1 0070, 84339, 92309, 49847 #### [facility] [address] [place] [address], [facility] Glucose [Mass/Vol] 166 mg/dL High 70-100 [facility] Comment on above: Performed By: #### 8 5499 #### [facility] [address] [facility] [place] [address], [facility] Glucose [Mass/Vol] 391 mg/dL High 70-100 [facility] Comment on above: Performed By: #### 8 5499 #### [facility] [address] . [place] [id number], [facility] POC SARS COV2 ANTIGEN NEGATI VEon 07-24-2021 POC SARS COV2 ANTIGEN NEG Negative Normal NEGATIVE [facility] Comment on above: Result Comment: Nega [...] signs and symptoms consistent with COVID-19. The [employer] COVID-19 Ag Card is a lateral flow [...] Accreditation. Performed By: #### 8 5499 #### [facility] [address] PROTHROMBIN TIMEon 1 INR Coag (PPP) [Relative time] 1.53 {INR} High 0.91-1.16 [facility] Comment on above: Order Comment: No: [...] CHEST 1995;108:231S-246S. Performed By: #### 1 0070, 53418, 52416, 44516 #### [facility] [address] PT Coag (PPP) [Time] 18.3 s High 12.3-14.8 [facility] Comment on above: Order Comment: No: D o not add to previous draw Result Comment: ALL RESULTS MUST BE INTERPRETED WITH RESPECT TO BLOOD DRAWING ARTIFACT OR DILUTION ERROR OF ANTICOAGULANT AT THE TIME OF SAMPLING. Performed By: #### 1 0070, 98866, 91866, 78881 #### [facility] [address] [place] [address], [place] COMP METABOLIC PANELon 07-23 Albumin [Mass/Vol] 3.5 g/dL Normal 3.5-5.7 [facility] Comment on above: Order Comment: No: D o not add to previous draw Performed By: #### 8 5499 #### [facility] [address] [place] [address], [place] ALKALINE PHOSPH 122 IU/L High 34-104 [facility] Comment on above: Order Comment: No: D o not add to previous draw Performed By: #### 8 5499 #### [facility] [address] [place] [address], [place] ALT [Catalytic activity/Vol] 32 U/L Normal 7-52 [facility] Comment on above: Order Comment: No: D o not add to previous draw Performed By: #### 8 5499 #### [facility] [address] [place] [address], [place] AST [Catalytic activity/Vol] 22 U/L Normal 13-39 [facility] Comment on above: Order Comment: No: D o not add to previous draw Performed By: #### 8 5499 #### [facility] [address] [place] [address], [place] Bilirubin [Mass/Vol] 0.4 mg/dL Normal 0.3-1.0 [facility] Comment on above: Order Comment: No: D o not add to previous draw Performed By: #### 8 5499 #### [facility] [address] [place] [address], [place] Calcium [Mass/Vol] 8.5 mg/dL Low 8.6-10.3 [facility] Comment on above: Order Comment: No: D o not add to previous draw Performed By: #### 8 5499 #### [facility] [address] [place] [address], [place] Chloride [Moles/Vol] 110 mmol/L High 98-107 [facility] Comment on above: Order Comment: No: D o not add to previous draw Performed By: #### 8 5499 #### [facility] [address] [place] [address], [place] CO2 [Moles/Vol] 23 mmol/L Normal 21-31 [facility] Comment on above: Order Comment: No: D o not add to previous draw Performed By: #### 8 5499 #### [facility] [address] [place] [address], [place] Creatinine [Mass/Vol] 1.33 mg/dL High 0.70-1.30 [facility] Comment on above: Order Comment: No: D o not add to previous draw Performed By: #### 8 5499 #### [facility] [address] [place] [address], [place] eGFR- non- 55 ml/min/1.73sq m Abnormal >60 [facility] Comment on above: Order Comment: No: D o not add to previous draw Performed By: #### 8 5499 #### [facility] [address] [place] [address], [place] GFR/1.73 sq M.predicted among blacks MDRD (S/P/Bld) [Vol rate/Area] mL/min/{1.73_m2} Normal >60 [facility] Comment on above: Order Comment: No: D o not add to previous draw Performed By: #### 8 5499 #### [facility] [address] [place] [address], [place] Glucose [Mass/Vol] 198 mg/dL High 70-100 [facility] Comment on above: Order Comment: No: D o not add to previous draw Performed By: #### 8 5499 #### [facility] [address] [place] [address], [place] Potassium [Moles/Vol] 3.5 mmol/L Normal 3.5-5.1 [facility] Comment on above: Order Comment: No: D o not add to previous draw Performed By: #### 8 5499 #### [facility] [address] [place] [address], [place] Protein [Mass/Vol] 6.3 g/dL Normal 6.0-8.3 [facility] Comment on above: Order Comment: No: D o not add to previous draw Performed By: #### 8 5499 #### [facility] [address] [place] [address], [place] Sodium [Moles/Vol] 142 mmol/L Normal 136-145 [facility] Comment on above: Order Comment: No: D o not add to previous draw Performed By: #### 8 5499 #### [facility] [address] [place] [address], [place] Urea nitrogen [Mass/Vol] 25 mg/dL Normal 7-25 [facility] Comment on above: Order Comment: No: D o not add to previous draw Performed By: #### 8 5499 #### [facility] [address] [place] [address], [place] POC GLUCOSE LABon 07-23-2021 Glucose [Mass/Vol] 325 mg/dL High 70-100 [facility] Comment on above: Performed By: #### 8 5499 #### [facility] [address] [place] [address], [place] Glucose [Mass/Vol] 290 mg/dL High 70-100 [facility] Comment on above: Performed By: #### 1 0070, 68995, 40747, 28800 #### [facility] [address] [place] [address], [place] Glucose [Mass/Vol] 253 mg/dL High 70-100 [facility] Comment on above: Performed By: #### 1 0070, 57290, 04994, 68122 #### [facility] [address] [place] [address], [facility] Glucose [Mass/Vol] 211 mg/dL High 70-100 [facility] Comment on above: Performed By: #### 8 5499 #### [facility] [address] [place] [address], [facility] PROTHROMBIN TIMEon 1 INR Coag (PPP) [Relative time] 1.92 {INR} High 0.91-1.16 [facility] Comment on above: Order Comment: Dirk [...] 1995;108:231S-246S. Performed By: #### 8 5499 #### [facility] [address] [place] [id number], [facility] PT Coag (PPP) [Time] 21.9 s High 12.3-14.8 [facility] Comment on above: Order Comment: Ghassano wn Result Comment: ALL RESULTS MUST BE INTERPRETED WITH RESPECT TO BLOOD DRAWING ARTIFACT OR DILUTION ERROR OF ANTICOAGULANT AT THE TIME OF SAMPLING. Performed By: #### 8 5499 #### [facility] [address] [place] [id number], [facility] APTTon 07-22-2021 aPTT Coag (Bld) [Time] 37.1 s High 25.0-35.0 [facility] Comment on above: Order Comment: No: [...] THIS PURPOSE. Performed By: #### 1 0070, 39602, 20778, 74047 #### [facility] [address] [place] [address], [facility] BASIC METABOLIC PANELon - Calcium [Mass/Vol] 8.3 mg/dL Low 8.6-10.3 [facility] Comment on above: Order Comment: No: D o not add to previous draw Performed By: #### 8 5499 #### [facility] [address] [place] [address], [facility] Chloride [Moles/Vol] 109 mmol/L High 98-107 [facility] Comment on above: Order Comment: No: D o not add to previous draw Performed By: #### 8 5499 #### [facility] [address] [place] [address], [facility] CO2 [Moles/Vol] 28 mmol/L Normal 21-31 [facility] Comment on above: Order Comment: No: D o not add to previous draw Performed By: #### 8 5499 #### [facility] [address] [place] [address], [facility] Creatinine [Mass/Vol] 1.48 mg/dL High 0.70-1.30 [facility] Comment on above: Order Comment: No: D o not add to previous draw Performed By: #### 8 5499 #### [facility] [address] [place] [address], [facility] eGFR- 59 ml/min/1.73sq m Abnormal >60 [facility] Comment on above: Order Comment: No: D o not add to previous draw Performed By: #### 8 5499 #### [facility] [address] [place] [address], [place] eGFR- non- 48 ml/min/1.73sq m Abnormal >60 [facility] Comment on above: Order Comment: No: D o not add to previous draw Performed By: #### 8 5499 #### [facility] [address] [place] [address], [place] Glucose [Mass/Vol] 216 mg/dL High 70-100 [facility] Comment on above: Order Comment: No: D o not add to previous draw Performed By: #### 8 5499 #### [facility] [address] [place] [address], [place] Potassium [Moles/Vol] 4.6 mmol/L Normal 3.5-5.1 [facility] Comment on above: Order Comment: No: D o not add to previous draw Performed By: #### 8 5499 #### [facility] [address] [place] [address], [place] Sodium [Moles/Vol] 141 mmol/L Normal 136-145 [facility] Comment on above: Order Comment: No: D o not add to previous draw Performed By: #### 8 5499 #### [facility] [address] [place] [address], [place] Urea nitrogen [Mass/Vol] 26 mg/dL High 7-25 [facility] Comment on above: Order Comment: No: D o not add to previous draw Performed By: #### 8 5499 #### [facility] [address] [place] [address], [facility] CBC COMPLETE BLOOD COUNTon Erythrocyte distribution width (RBC) [Ratio] 13.2 % Normal 11.5-15.0 [facility] Comment on above: Order Comment: No: D o not add to previous draw Performed By: #### 8 5499 #### [facility] [address] [place] [address], [facility] Hematocrit (Bld) [Volume fraction] 45.8 % Normal 39.0-50.0 [facility] Comment on above: Order Comment: No: D o not add to previous draw Performed By: #### 8 5499 #### [facility] [address] [place] [id number], [facility] Hemoglobin (Bld) [Mass/Vol] 14.8 g/dL Normal 13.0-17.0 [facility] Comment on above: Order Comment: No: D o not add to previous draw Performed By: #### 8 5499 #### [facility] [address] [place] [id number], [facility] MCH (RBC) [Entitic mass] 31.0 pg Normal 27.0-33.0 [facility] Comment on above: Order Comment: No: D o not add to previous draw Performed By: #### 8 5499 #### [facility] [address] [place] [address], [facility] MCHC (RBC) [Mass/Vol] 32.3 g/dL Normal 32.0-35.0 [facility] Comment on above: Order Comment: No: D o not add to previous draw Performed By: #### 8 5499 #### [facility] [address] [place] [address], [facility] MCV (RBC) [Entitic vol] 95.8 fL Normal 82.0-98.0 [facility] Comment on above: Order Comment: No: D o not add to previous draw Performed By: #### 8 [id number] #### [facility] [address] [place] [address], [facility] Nucleated RBC/100 WBC (Bld) [Ratio] 0 % Normal 0-0 [facility] Comment on above: Order Comment: No: D o not add to previous draw Performed By: #### 8 [id number] #### [facility] [address] [facility] [facility] [place] [address], [facility] PLAT CNT 209 10*3/uL Normal 150-400 [facility] Comment on above: Order Comment: No: D o not add to previous draw Performed By: #### 8 [id number] #### [facility] [address] [place] [address], [facility] RBC (Bld) [#/Vol] 4.78 10*6/uL Normal 4.20-5.70 [facility] Comment on above: Order Comment: No: D o not add to previous draw Performed By: #### 8 [id number] #### [facility] [address] [place] [address], [facility] WBC (Bld) [#/Vol] 8.89 10*3/uL Normal 4.00-10.60 [facility] Comment on above: Order Comment: No: D o not add to previous draw Performed By: #### 8 [id number] #### [facility] [address] [place] [address], [facility] LIVER BATTERYon 07-22-2021 Albumin [Mass/Vol] 3.2 g/dL Low 3.5-5.7 [facility] Comment on above: Performed By: #### 8 [id number] #### [facility] [address] [place] [address], [facility] ALKALINE PHOSPH 111 IU/L High 34-104 [facility] Comment on above: Performed By: #### 8 [id number] #### [facility] [address] [facility] [place] [address], [facility] ALT [Catalytic activity/Vol] 23 U/L Normal 7-52 [facility] Comment on above: Performed By: #### 8 [id number] #### [facility] [address] [place] [address], [facility] AST [Catalytic activity/Vol] 17 U/L Normal 13-39 [facility] Comment on above: Performed By: #### 8 5499 #### [facility] [address] [place] [address], [facility] Bilirubin [Mass/Vol] 0.3 mg/dL Normal 0.3-1.0 [facility] Comment on above: Performed By: #### 8 5499 #### [facility] [address] [place] [id number], [facility] Bilirubin.direct [Mass/Vol] 0.0 mg/dL Normal 0.0-0.2 [facility] Comment on above: Performed By: #### 8 5499 #### [facility] [address] [place] [address], [facility] Protein [Mass/Vol] 5.5 g/dL Low 6.0-8.3 [facility] Comment on above: Performed By: #### 8 [id number] #### [facility] [address] [place] [address], [facility] MAGNESIUM BLOODon 07-22-2021 Magnesium [Mass/Vol] 2.0 mg/dL Normal 1.9-2.7 [facility] Comment on above: Order Comment: No: D o not add to previous draw Performed By: #### 8 5499 #### [facility] [address] [place] [address], [facility] PHOSPHORUS BLOODon Phosphate [Mass/Vol] 3.0 mg/dL Normal 2.5-5.0 [facility] Comment on above: Order Comment: No: D o not add to previous draw Performed By: #### 8 5499 #### [facility] [address] [place] [address], [facility] POC GLUCOSE LABon 07-22-2021 Glucose [Mass/Vol] 223 mg/dL High 70-100 [facility] Comment on above: Performed By: #### 1 0070, 50541, 34481, 10444 #### [facility] [address] [place] [address], [place] Glucose [Mass/Vol] 222 mg/dL High 70-100 [facility] Comment on above: Performed By: #### 8 5499 #### [facility] [address] [place] [address], [place] Glucose [Mass/Vol] 245 mg/dL High 70-100 [facility] Comment on above: Performed By: #### 8 5499 #### [facility] [address] [place] [address], [place] Glucose [Mass/Vol] 202 mg/dL High 70-100 [facility] Comment on above: Performed By: #### 1 0070, 68876, 40342, 92876 #### [facility] [address] [place] [address], [facility] PROTHROMBIN TIMEon INR Coag (PPP) [Relative time] 2.27 {INR} High 0.91-1.16 [facility] Comment on above: Order Comment: No: [...] CHEST 1995;108:[id number]-246S. Performed By: #### 1 0070, 81212, 86339, 61393 #### [facility] [address] [place] [address], [facility] PT Coag (PPP) [Time] 24.9 s High 12.3-14.8 [facility] Comment on above: Order Comment: No: D o not add to previous draw Result Comment: ALL RESULTS MUST BE INTERPRETED WITH RESPECT TO BLOOD DRAWING ARTIFACT OR DILUTION ERROR OF ANTICOAGULANT AT THE TIME OF SAMPLING. Performed By: #### 1 0070, 78622, 51227, 01410 #### [facility] [address] Basic Metabolic Panelon 10- Calcium [Mass/Vol] 9.4 mg/dL Normal 8.2-10.2 [facility] Comment on above: Performed By: #### H EPATIC, CBC, LIPASE, BMP #### [facility] [address] [place] [address] [place] Chloride [Moles/Vol] 103 mmol/L Normal 95-114 [facility] Comment on above: Performed By: #### H EPATIC, CBC, LIPASE, BMP #### [facility] [address] [place] [id number] [place] CO2 [Moles/Vol] 26.9 mmol/L Normal 22.0-30.0 [facility] Comment on above: Performed By: #### H EPATIC, CBC, LIPASE, BMP #### [facility] [address] [place] [id number] [facility] Creatinine [Mass/Vol] 1.66 mg/dL High 0.64-1.27 [facility] Comment on above: Performed By: #### H EPATIC, CBC, LIPASE, BMP #### [facility] [address] [place] [address] [place] Creatinine Clr Calc Pharmacy 68.[address] [facility] Comment on above: Performed By: #### H EPATIC, CBC, LIPASE, BMP #### [facility] [address] [place] [address] [place] Estimated GFR ( Beata [address] [facility] Comment on above: Result Comment: GFR estimated reference range: According to KDOQI guidelines, <60 ml/min/1.73m2 is sufficient to diagnose a patient with chronic kidney disease. Performed By: #### H EPATIC, CBC, LIPASE, BMP #### [facility] [address] Estimated GFR (Non- Am [address] [facility] Comment on above: Performed By: #### H EPATIC, CBC, LIPASE, BMP #### [address] Glucose [Mass/Vol] 442 mg/dL High 70-100 [facility] Comment on above: Result Comment: [place] Glucose Reference Range is dependent on time and content of last meal. Glucose of more than 200 mg/dL in a nonstressed, ambulatory subject supports the diagnosis of Diabetes Mellitus. ADA recommended reference range Performed By: #### H EPATIC, CBC, LIPASE, BMP #### [address] Potassium [Moles/Vol] 4.1 mmol/L Normal 3.5-5.1 [facility] Comment on above: Performed By: #### H EPATIC, CBC, LIPASE, BMP #### [facility] [address] [place] [address] [place] Sodium [Moles/Vol] 140 mmol/L Normal 136-146 [facility] Comment on above: Performed By: #### H EPATIC, CBC, LIPASE, BMP #### [facility] [address] [place] [address] Urea nitrogen [Mass/Vol] 29 mg/dL High 9-23 [facility] Comment on above: Performed By: #### H EPATIC, CBC, LIPASE, BMP #### [facility] [address] [place] [id number] [facility] COVID-19 Antigenon 1 COVID-19 Antigen Healthcare Worker?: [...] its performance Tamera Disclaimer characteristic determined by [employer] and Tamera Disclaimer validated at [facility]. This Tamera Disclaimer test has not [...] is terminated or revoked sooner. PERFORMED BY: [place] [address] PATHOLOGIST HEALTH INFORMATION SYSTEMS TECHNICIAN TO [place]ADISON M.D. Normal [facility] Comment on above: Performed By: #### C OVID-19 TAMERA, SOFIANEG, COVID 19 [facility] [place] #### [address] COVID-19 [facility] 07-21-2021 SARS-CoV-2 (COVID-19) RNA EMMY+probe Ql (Unsp spec) Negative Normal Negative [facility] Comment on above: Order Comment: Healt hcare Worker?: Y Result Comment: Testing for SARS-CoV-2 by RT-PCR This test was developed and its performance characteristics determined by [facility] and validated at the [facility]. This test has not been FDA [...] is terminated or revoked sooner. PERFORMED BY: [place] [address] PATHOLOGIST HEALTH INFORMATION SYSTEMS TECHNICIAN TO [place] M.D. Performed By: #### C OVID-19 TAMERA, SOFIANEG, COVID 19 [facility] [place] #### [place] [id number] [facility] CT abdomen pelvis wo conon 1 CT abdomen pelvis wo con [facility] [place] [address] [place] [address] CT Scan Report Signed Patient: Andry Pierre MR#: [id number] 28 : 1960 Acct:[id number] Age/Sex: 60 / M ADM Date: 07/21/21 Loc: Room: 1J6682-6 Type: ADM INOo Attending Dr: Feliciano Hernandez [...] Ricks Jr., M.D.07/21/2021 9:15 AM Dictation Location: [place] [address] Transcribed By: [facility] 07/21/21914 Dictated By: Duke Ricks Jr, MD 07/21/21903 Signed By: 07/21/21914 Normal [facility] Coagulation Profileon 2020 aPTT Coag (Bld) [Time] 37.9 s High 25.1-36.5 [facility] Comment on above: Result Comment: PERF ORMED BY: [place] [address] PATHOLOGIST HEALTH INFORMATION SYSTEMS TECHNICIAN TO [place]ADISON M.D. Performed By: #### P P #### [facility] [address] [place] [address] INR Coag (PPP) [Relative time] 2.0 {INR} Normal [facility] Comment on above: Result Comment: INR [...] 4.5 Performed By: #### P P #### [facility] [address] [place] [address] PT Coag (PPP) [Time] 22.5 s High 9.0-12.9 [facility] Comment on above: Performed By: #### P P #### [address] Complete Blood Count Auto Di ffon 07-21-2021 Basophils (Bld) [#/Vol] 0.1 10*3/uL Normal 0.0-0.2 [facility] Comment on above: Result Comment: PERF ORMED BY: [place] [address] PATHOLOGIST HEALTH INFORMATION SYSTEMS TECHNICIAN TO [place]AD[place] M.D. Performed By: #### H EPATIC, CBC, LIPASE, BMP #### [address] Basophils/100 WBC (Bld) 0.6 % Normal . [facility] Comment on above: Performed By: #### H EPATIC, CBC, LIPASE, BMP #### [address] Eosinophils (Bld) [#/Vol] 0.4 10*3/uL Normal 0.0-0.45 [facility] Comment on above: Performed By: #### H EPATIC, CBC, LIPASE, BMP #### [address] Eosinophils/100 WBC (Bld) 4.3 % Normal . [facility] Comment on above: Performed By: #### H EPATIC, CBC, LIPASE, BMP #### [address] Erythrocyte distribution width (RBC) [Ratio] 13.7 % Normal 12.0-14.8 [facility] Comment on above: Performed By: #### H EPATIC, CBC, LIPASE, BMP #### [address] Hematocrit (Bld) [Volume fraction] 45.9 % Normal 38.8-50.0 [facility] Comment on above: Performed By: #### H EPATIC, CBC, LIPASE, BMP #### [address] Hemoglobin (Bld) [Mass/Vol] 15.4 g/dL Normal 13.0-17.0 [facility] Comment on above: Performed By: #### H EPATIC, CBC, LIPASE, BMP #### [address] Lymphocytes (Bld) [#/Vol] 2.9 10*3/uL Normal 1.00-4.8 [facility] Comment on above: Performed By: #### H EPATIC, CBC, LIPASE, BMP #### [address] Lymphocytes/100 WBC (Bld) 28.4 % Normal . [facility] Comment on above: Performed By: #### H EPATIC, CBC, LIPASE, BMP #### [address] MCH (RBC) [Entitic mass] 32.0 pg Normal 27.5-35.2 [facility] Comment on above: Performed By: #### H EPATIC, CBC, LIPASE, BMP #### [address] MCV (RBC) [Entitic vol] 95.2 fL Normal 83.5-101 [facility] Comment on above: Performed By: #### H EPATIC, CBC, LIPASE, BMP #### [address] Mean Corpuscular HGB Conc 33.6 g/dL Normal 32.5-35.6 [facility] Comment on above: Performed By: #### H EPATIC, CBC, LIPASE, BMP #### [address] Monocytes (Bld) [#/Vol] 0.7 10*3/uL Normal 0.0-0.8 [facility] Comment on above: Performed By: #### H EPATIC, CBC, LIPASE, BMP #### [address] Monocytes/100 WBC (Bld) 6.7 % Normal . [facility] Comment on above: Performed By: #### H EPATIC, CBC, LIPASE, BMP #### [address] Neutrophils (Bld) [#/Vol] 6.0 10*3/uL Normal 1.8-7.7 [facility] Comment on above: Performed By: #### H EPATIC, CBC, LIPASE, BMP #### [address] Neutrophils/100 WBC (Bld) 60.0 % Normal . [facility] Comment on above: Performed By: #### H EPATIC, CBC, LIPASE, BMP #### [address] Nucleated RBC/100 WBC (Bld) [Ratio] 0.1 % Normal 0-0.5 [facility] Comment on above: Performed By: #### H EPATIC, CBC, LIPASE, BMP #### [address] Platelet mean volume (Bld) [Entitic vol] 8.7 fL Normal 6.6-10.1 [facility] Comment on above: Performed By: #### H EPATIC, CBC, LIPASE, BMP #### [address] Platelets (Bld) [#/Vol] 215 10*3/uL Normal 150-450 [facility] Comment on above: Performed By: #### H EPATIC, CBC, LIPASE, BMP #### [address] RBC (Bld) [#/Vol] 4.83 10*6/uL Normal 3.90-5.60 [facility] Comment on above: Performed By: #### H EPATIC, CBC, LIPASE, BMP #### [address] WBC (Bld) [#/Vol] 10.0 10*3/uL Normal 4.5-11.0 [facility] Comment on above: Performed By: #### H EPATIC, CBC, LIPASE, BMP #### [address] Glucose Poct Glucometerson 1 0-16-2021 Commemt1 Glu2: Cleaned Meter [facility] Comment on above: Result Comment: PERF ORMED BY: [place] [address] PATHOLOGIST HEALTH INFORMATION SYSTEMS TECHNICIAN TO [place]AD[place] M.D. Performed By: #### H EPATIC, CBC, LIPASE, BMP #### [address] Glucose [Mass/Vol] 267 mg/dL Normal [facility] Comment on above: Result Comment: [place] om Glucose Reference Range is dependent on time and content of last meal. Glucose of more than 200 mg/dL in a nonstressed, ambulatory subject supports the diagnosis of Diabetes Mellitus. Performed By: #### H EPATIC, CBC, LIPASE, BMP #### [address] Commemt1 Glu2: Cleaned Meter [facility] Comment on above: Result Comment: PERF ORMED BY: [place] [address] PATHOLOGIST HEALTH INFORMATION SYSTEMS TECHNICIAN TO [place]ADISON M.D. Performed By: #### H EPATIC, CBC, LIPASE, BMP #### [address] Glucose [Mass/Vol] 252 mg/dL Normal [facility] Comment on above: Result Comment: [place] om Glucose Reference Range is dependent on time and content of last meal. Glucose of more than 200 mg/dL in a nonstressed, ambulatory subject supports the diagnosis of Diabetes Mellitus. Performed By: #### H EPATIC, CBC, LIPASE, BMP #### [address] Commemt1 Glu2: Cleaned Meter [facility] Comment on above: Result Comment: PERF ORMED BY: [place] [address] PATHOLOGIST HEALTH INFORMATION SYSTEMS TECHNICIAN TO [place] M.D. Performed By: #### H EPATIC, CBC, LIPASE, BMP #### [address] Glucose [Mass/Vol] 100 mg/dL Normal [facility] Comment on above: Result Comment: [place] om Glucose Reference Range is dependent on time and content of last meal. Glucose of more than 200 mg/dL in a nonstressed, ambulatory subject supports the diagnosis of Diabetes Mellitus. Performed By: #### H EPATIC, CBC, LIPASE, BMP #### [address] Glucose [Mass/Vol] 140 mg/dL Normal [facility] Comment on above: Result Comment: [place] om Glucose Reference Range is dependent on time and content of last meal. Glucose of more than 200 mg/dL in a nonstressed, ambulatory subject supports the diagnosis of Diabetes Mellitus. PERFORMED BY: [place] [address] PATHOLOGIST HEALTH INFORMATION SYSTEMS TECHNICIAN TO [place]ISON M.D. Performed By: #### H EPATIC, CBC, LIPASE, BMP #### [address] Hepatic Panelon 07-21-2021 Albumin [Mass/Vol] 3.5 g/dL Normal 3.2-5.5 [facility] Comment on above: Performed By: #### H EPATIC, CBC, LIPASE, BMP #### [address] Albumin/Globulin [Mass ratio] 1.1 {ratio} Normal [facility] Comment on above: Performed By: #### H EPATIC, CBC, LIPASE, BMP #### [place] [address] [place] ALP [Catalytic activity/Vol] 115 U/L High 32-92 [facility] Comment on above: Performed By: #### H EPATIC, CBC, LIPASE, BMP #### [place] [address] [place] ALT [Catalytic activity/Vol] 30 U/L Normal 10-60 [facility] Comment on above: Performed By: #### H EPATIC, CBC, LIPASE, BMP #### [address] [place] [address] [place] AST [Catalytic activity/Vol] 19 U/L Normal 10-42 [facility] Comment on above: Performed By: #### H EPATIC, CBC, LIPASE, BMP #### [facility] [address] Bilirubin [Mass/Vol] 0.7 mg/dL Normal 0.3-1.2 [facility] Comment on above: Performed By: #### H EPATIC, CBC, LIPASE, BMP #### [facility] [address] Bilirubin,Indirect Not performed Normal [facility] Comment on above: Performed By: #### H EPATIC, CBC, LIPASE, BMP #### [facility] [address] Bilirubin.indirect [Mass/Vol] mg/dL Normal 0.0-0.4 [facility] Comment on above: Performed By: #### H EPATIC, CBC, LIPASE, BMP #### [address] Globulin (S) [Mass/Vol] 3.2 g/dL Normal [facility] Comment on above: Performed By: #### H EPATIC, CBC, LIPASE, BMP #### [address] Protein [Mass/Vol] 6.7 g/dL Normal 6.1-7.9 [facility] Comment on above: Performed By: #### H EPATIC, CBC, LIPASE, BMP #### [address] Lactic Acidon 07-21-2021 Lactate [Moles/Vol] 1.2 mmol/L Normal 0.5-2.2 [facility] Comment on above: Result Comment: PERF ORMED BY: [place] [address] PATHOLOGIST HEALTH INFORMATION SYSTEMS TECHNICIAN TO [place] M.D. Performed By: #### L ACTIC #### [address] Lipaseon 07-21-2021 Lipase [Catalytic activity/Vol] 43.0 U/L Normal 22-51 [facility] Comment on above: Result Comment: PERF ORMED BY: [place] [address] PATHOLOGIST HEALTH INFORMATION SYSTEMS TECHNICIAN TO [place] M.D. Performed By: #### H EPATIC, CBC, LIPASE, BMP #### [address] Tamera Ag Negativeon 07-21-20 21 Tamera Ag Negative Negative Normal Negative [facility] Comment on above: Result Comment: This is a duplicate Tamera SARS Antigen (GIOVANNA) result to be used for statistical tracking purpose only. PERFORMED BY: [place] [address] PATHOLOGIST HEALTH INFORMATION SYSTEMS TECHNICIAN TO [place]ISON M.D. Performed By: #### C OVID-19 TAMERA, SOFIANEG, COVID 19 [facility] [place] #### [address] Urinalysison 07-21-2021 Appearance (U) Clear Normal Clear [facility] Comment on above: Order Comment: Name Collection Type:: Clean-Voided Midstream Performed By: #### U A #### [address] Bilirubin,Urine Negative Normal Negative [facility] Comment on above: Order Comment: Name Collection Type:: Clean-Voided Midstream Performed By: #### U A #### [address] Color (U) Yellow Normal Yellow [facility] Comment on above: Order Comment: Name Collection Type:: Clean-Voided Midstream Performed By: #### U A #### [address] Glucose Ql (U) >=1000 High Normal [facility] Comment on above: Order Comment: Name Collection Type:: Clean-Voided Midstream Performed By: #### U A #### [place] [id number] [place] Ketones Ql (U) Negative Normal Negative [facility] Comment on above: Order Comment: Name Collection Type:: Clean-Voided Midstream Performed By: #### U A #### [address] Leukocyte esterase Test strip Ql (U) Negative Normal Negative [facility] Comment on above: Order Comment: Name Collection Type:: Clean-Voided Midstream Performed By: #### U A #### [address] Nitrite,Urine Negative Normal Negative [facility] Comment on above: Order Comment: Name Collection Type:: Clean-Voided Midstream Performed By: #### U A #### [address] Occult Blood,Urine Negative Normal Negative [facility] Comment on above: Order Comment: Name Collection Type:: Clean-Voided Midstream Result Comment: PERF ORMED BY: [place] [address] PATHOLOGIST HEALTH INFORMATION SYSTEMS TECHNICIAN TO [place] M.D. Performed By: #### U A #### [address] pH (U) 6.5 [pH] Normal 5.0-9.0 [facility] Comment on above: Order Comment: Name Collection Type:: Clean-Voided Midstream Performed By: #### U A #### [address] Protein,Urine Negative Normal Negative [facility] Comment on above: Order Comment: Name Collection Type:: Clean-Voided Midstream Performed By: #### U A #### [address] Specificy [place],Urine 1.026 Normal 1.001-1.030 [facility] Comment on above: Order Comment: Name Collection Type:: Clean-Voided Midstream Performed By: #### U A #### [address] Urobilinogen,Urine Normal Normal Normal [facility] Comment on above: Order Comment: Name Collection Type:: Clean-Voided Midstream Performed By: #### U A #### [facility] [address] [place] [address] [facility] General Surgery Office/Clini c Noteon 05-31-2021 General [...] hematuria Head injury Heart disease 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 Normal [facility] Comment on above: Result Comment: Elec tronically Signed By: NOE GEORGE, Andry Das\.br\Date and Time Signed: 05/31/21 11:26 EDT Ambulatory Clinical Summaryo n 05-29-2021 Ambulatory Clinical Summary {[id number]}CD: [id number] [facility] Outside Colonoscopyon 2020 Outside Colonoscopy [id number]#[id number]:127 [facility] Pathology Noteon 05-25-2021 Pathology Note [id number]:127 [facility] [place] [facility] [facility] [place] 23, 2021 Say Mccormick, [facility] [place] [address] [place] [address] Re: ANDRY PIERRE Date of : 1960 Thank you for your referral of Andry Pierre who was seen on consultation on May 18, 2021, for Right upper quadrant pain and rectal bleeding, nausea, vomiting, and constipation. I have enclosed my consultation notes for your review. I will be happy to follow Andry should his symptoms persist. Sincerely, Andry Adames MD General Surgery Normal [facility] Consent for Procedure/Surger yon 05-21-2021 Consent for Procedure/Surgery [id number]:127 Normal [facility] Immunization Recordson 05-21 Immunization Records [id number]:127 Normal [facility] Ambulatory Clinical Summaryo n 05-18-2021 Ambulatory Clinical Summary {[id number]}CD: [id number] Normal [facility] General Surgery Office/Clini c Noteon 05-18-2021 General Surgery Office/Clinic Note HPI Staff Est patient , RUQ pain x 8 wks , u/s done 05/03/21 @ [facility]. recent rectal bleeding currently having nausea [...] in remote past and was hospitalized in [place] with a torn muscle; only abdominal operation RIHR x 3; recent CT scan of abdomen wnl; GB US with possible small stones adherent to fundus of gallbladder, no wall thickening or ductal dilation; normal HIDA scan; all studies personally reviewed; no h/o jaundice or pancreatitis; poor po intake, with mild recent wt loss; patient reports that he had a colonoscopy at [facility] within the last 5 years, but [...] hematuria Head injury Heart disease History of intermediate manager anticoagulant use History of stroke Hyperlipidemia Hypertension Liver cancer Nausea and vomiting Neck pain Nocturia Parkinsons Retention of urine seizures Seizures Urge incontinence Urinary retention Urinary urgency Historical Arthritis Procedure/Surgical History Implantation of electronic stimulator in 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 Normal [facility] Comment on above: Result Comment: Elec tronically Signed By: NOE GEORGE, Andry Daniel\Date and Time Signed: 05/18/21 15:[address] EDT RAD - CT Reporton 05-17-2021 RAD - CT Report [id number]#1.00CD:127 Normal [facility] RAD - MISCon 05-17-2021 RAD - MISC [id number]:127 [facility] RAD - MISC [id number]#1.00CD:127 [facility] RAD - Ultrasound Reporton RAD - Ultrasound Report [id number]#1.00CD:127 [facility] RAD - Ultrasound Reporton RAD - Ultrasound Report [id number]:127 [facility] Physician Referralon Physician Referral [id number]:127 [facility] Provider Letter [facility] March 23, 2021 Say Mccormick, [address] [place] [address] [place] [address] Re: ANDRY PIERRE Date of : 1960 Thank you for your referral of Andry Pierre who was seen on consultation of excision of lump on the neck on March 14, 2021. I have enclosed my consultation notes for your review. I will be happy to follow Andry should his symptoms persist. Sincerely, Andry Adames MD General Surgery [facility] Ambulatory Clinical Summaryo n 03-14-2021 Ambulatory Clinical Summary {[id number]}CD: [id number] [facility] Patient Educationon 03-14-20 Patient Education Exercising to [...] your health care provider or diet and dairy nutrition specialist (dietitian). This may include: ? Eating [...] calories than (more content not included)... Normal [facility] Physician Referralon 021 Physician Referral [id number]#1.00CD:127 [facility] Patient Correspondenceon Patient Correspondence [id number]#1.00CD:127 [facility] Reminderson 01-10-2021 Reminders - From: Rosa Cuellar To: EU - Recall Barfield; Cc: Rosa Cuellar; Sent: 08/17/2020 11:45:05 [...] LR Letter mailed regular/certified letter today. Normal [facility] Provider Letteron 01-09-2021 Provider Letter (Inserted Image. Pina ble to display) January 09, 2021 ANDRY PIERRE [address] [place] [address] ANDRY PIERRE 1960 SENT VIA CERTIFIED AND REGULAR MAIL Dear Mr. Pierre, This letter is to inform you the providers of [facility], [facility] will no longer be responsible for your routine medical care due to your noncompliance. Emergency care only will be provided for the thirty (30) days following this letter. During this time period we suggest that you find another physician for your medical needs. A listing of area physicians can be found on [facility]'s website at [email or web address] or you may contact your health plan. We will be glad to forward your records to your new physician as long as we receive a signed release of records form. Sincerely, Larry Barfield M.D., F.A.C.S. [facility] [address] [place] [address] [facility] Patient Correspondenceon Patient Correspondence [id number]:127 Normal [facility] Provider Letter Office-[facility] 02-19-2021 Provider Letter [facility] November 24, 2020 ANDRY PIERRE [address] [place] [address] ANDRY PIERRE A 1960 SENT VIA CERTIFIED AND REGULAR MAIL [...] Larry Barfield M.D., F.A.C.S. [facility] [address], [place] [address] [facility] Reminderson 08-02-2020 Reminders - From: Radha King MA To: EU - Clinical; Sent: 07/19/2020 14:09:34 EDT Show up: 08/02/2020 14:09:00 EDT Subject: fish/cytol Reminder/Recall fish/cytol done 07/19/2020 done, sent msg to prw to review results Normal [facility] Outside Cardiovascularon Outside Cardiovascular [id number]#1.00CD:127 Normal [facility] Outside Radiologyon 08-01-20 20 Outside Radiology [id number]#1.00CD:127 Normal [facility] Outside Radiology [id number]#1.00CD:127 Normal [facility] Progress Note-Physicianon Progress Note-Physician [id number]:127 Normal [facility] Urology Office/Clinic Noteon 07-25-2020 Urology Office/Clinic Note Chief Complaint New Pt. HPI Staff New Pt. [facility] on 07/10/2020 due to leaking around catheter. US of kidneys done 11/17/2019. CT SCAN done 07/04/2020. Pt. states after having a Ct scan Pt. was not able to urinate and had catheter placed. Pt. does not have a history of urine retention. 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 Pt. states by a Doctor in [place] told Pt. had prostates cancer. Pt. states no biopsy was done, just a blood test. PSA was 1.39 done 07/07/20. Cath was removed at [facility] this morning. Dysuria: denies pain or burning Incomplete bladder emptying: yes pt had cath for 2 weeks placed by [facility], cath was removed this morning at [facility] Hematuria: pt states he had visible [...] since last encounter. Reviewed CT scan and [facility] ER notes Review of Systems [...] Retention of urine, unspecified) Patient reported to [facility] ER for leaking around catheter [...] contributing t (more content not included)... Normal [facility] Comment on above: Result Comment: Elec tronically Signed By: Yon GEORGE, Lefty Jamil\.br\Date and Time Signed: 07/25/20 12:11 EDT Urology Office/Clinic Note Chief Complaint [facility] 07/10/2020 HPI Staff [facility] on 07/10/2020 due to leaking around catheter. US of kidneys done 11/17/2019. Pt. states after having a Ct scan Pt. was not able to urinate and had catheter placed. Pt. does not have a history of urine retention. 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 Pt. states by a Doctor in [place] told Pt. had prostates cancer. Pt. states [...] abdominal pain. 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 There have been no associated [...] of urine (R33.9: Retention of urine, unspecified) DRILLING INSPECTOR is here for urinary retention that started [...] prostate cancer 3yrs. ago by a in [place]. Pt. states that there was never a [...] urine fo (more content not included)... Normal [facility] Comment on above: Result Comment: Elec tronically Signed By: Yon GEORGE, Lefty Jamil\.br\Date and Time Signed: 07/25/20 11:44 EDT Lab Reportson 07-24-2020 Lab Reports [id number]#1.00CD:127 Normal [facility] UroVysion Fish and Urine Cyt o ([facility])on 07-24-2020 [facility] & UC Diagnosis Info Invalid Interpretation Code [facility] Comment on above: Result Comment: A:Ur ine,Urine:Voided [...] on: 07/24/2020 10:42:51 Performed By: #### 1 [id number] ####[facility] [address] [place] [address] - [address] Reporton 07-21-[address] - [address] Report [id number]#1.00CD:127 Normal [facility] ED Note-Physicianon 07-20-20 ED Note-Physician [id number]#1.00CD:127 Normal [facility] Formson 07-20-2020 Forms [id number]#1.00CD:127 Normal [facility] Ambulatory Clinical Summaryo n 07-19-2020 Ambulatory Clinical Summary {[id number]}CD: [id number] Normal [facility] Ambulatory Clinical Summary {[id number]}CD: [id number] [facility] Auth for Release of Medical Recordson 07-19-2020 Auth for Release of Medical Records [id number]#1.00CD:127 [facility] Patient Educationon 07-19-20 Patient Education Family Medicine [...] Document Reviewed: 12/14/2012 ExitCare? Patient Information ?2013 [employer] [facility]. [facility] Patient Education Family Medicine Acute Urinary Retention, [...] urine. Then you and your personal banking representative can decide at your earliest convenience how [...] to a urinary tract infection. Only take sxcc-ufz-okfwruu or prescription medicines for pain, discomfort, or fever as directed by your caregiver. SEEK IMMEDIATE MEDICAL CARE IF: You develop chills, fever, or show signs of generalized illness that occurs prior to seeing your caregiver. Document Released: 12/29/2001 Document Revised: 12/14/2012 Document Reviewed: 09/13/2009 ExitCare? Patient Information ?2013 [employer]. [facility] Provider [facility] Provider Letter [facility] Say Mccormick [address] [place] [address] Re: ANDRY PIERRE Date of : 1960 [...] on PSA alone per pt in [facility]. Equally confusing is the fact that this [...] remote history of prostate cancer in [facility] by a outside urologist without a biopsy. [...] determine his PSA's were done in [facility]. I began suspecting the patient was not [...] impression of (more content not included)... Normal [facility] RAD - CT Reporton 07-19-[address] - [address] Report [id number]#1.00CD:127 Normal [facility] UroVysion Fish and Urine Cyt o ([facility])on 07-19-2020 [facility] Method of Extraction Voided Normal [facility] Comment on above: Performed By: #### 1 [id number] ####[facility] [address] [facility] [place] [address] [facility] Number of Jars 1 Invalid Interpretation Code [facility] Comment on above: Performed By: #### 1 [id number] ####[facility] [address] [place] [address] [facility] Specimen Urine Normal [facility] Comment on above: Performed By: #### 1 [id number] ####[facility] [address] [place] [address] [facility] Type of Service Technical Only Normal [facility] Comment on above: Performed By: #### 1 [id number] ####[facility] [address] [place] [address] Vital Signs Date Time Vital Sign Value Performing Clinician Facility 12-08-2023 19:17-0500 Respiratory rate 18 /min [facility] 12-08-2023 16:50-0500 Body temperature 97.9 [degF] [facility] 12-08-2023 16:50-0500 Diastolic blood pressure 88 mm[Hg] [facility] 12-08-2023 16:50-0500 Heart rate 90 /min Abdirahman Hunt MD [facility] 12-08-2023 16:50-0500 SaO2% (BldA) [Mass fraction] 98 % [facility] 12-08-2023 16:50-0500 Systolic blood pressure 149 mm[Hg] [facility] 12-05-2023 15:04-0500 Body height 180.3 cm Abdirahman [facility] 11-30-2023 00:18-0500 Body temperature 37.0 [facility] 11-29-2023 20:00-0500 Body mass index (BMI) [Ratio] 40.96 kg/m2 Abdirahman Hunt MD [facility] 11-29-2023 20:00-0500 Body weight 133.2 kg Abdirahman Hunt MD [facility] 11-06-2023 09:57-0500 Body height 175.3 cm Obed Florian MD Work Phone: [facility] 11-06-2023 09:57-0500 Body weight 123.38 kg Obed Florian MD Work Phone: [facility] 11-06-2023 09:57-0500 Diastolic blood pressure 89 mm[Hg] Obed Florian MD Work Phone: [facility] 11-06-2023 09:57-0500 Heart rate 81 /min Obed Florian MD Work Phone: [facility] 11-06-2023 09:57-0500 SaO2% (BldA) [Mass fraction] 95 % Obed Florian MD Work Phone: [facility] 11-06-2023 09:57-0500 Systolic blood pressure 127 mm[Hg] Obed Florian MD Work Phone: [facility] 01-21-2022 07:23-0400 Body height 182.9 cm Pacc 3 Work Phone: [facility] 01-21-2022 07:23-0400 Body temperature 97.2 [degF] Pacc 3 Work Phone: [facility] 01-21-2022 07:23-0400 Body weight 140.21 kg Pacc 3 Work Phone: [facility] 01-21-2022 07:23-0400 Diastolic blood pressure 84 mm[Hg] Pacc 3 Work Phone: [facility] 01-21-2022 07:23-0400 Heart rate 57 /min Pacc 3 Work Phone: [facility] 01-21-2022 07:23-0400 SaO2% (BldA) [Mass fraction] 99 % Pac 3 Work Phone: [facility] 01-21-2022 07:23-0400 Systolic blood pressure 134 mm[Hg] Pac 3 Work Phone: [facility] 11-13-2021 12:20-0500 Body height 182.88 cm Azlevi Laroses Other [facility] Other 11-13-2021 12:20-0500 Body mass index (BMI) [Ratio] 42.04 kg/m2 Azlevi Bakhous Other [facility] Other 11-13-2021 12:20-0500 Body temperature 96.2 [degF] Aziz Bakhous Other [facility] Other 11-13-2021 12:20-0500 Body weight 140.62 kg Aziz Bakhous Other [facility] Other 11-13-2021 12:20-0500 Diastolic blood pressure 60 mm[Hg] Aziz Bakhous Other [facility] Other 11-13-2021 12:20-0500 Respiratory rate 20 /min Aziz Bakhous Other [facility] Other 11-13-2021 12:20-0500 SaO2% (BldA) [Mass fraction] 96 % Aziz Bakhous Other [facility] Other 11-13-2021 12:20-0500 Systolic blood pressure 92 mm[Hg] Aziz Bakhous Other [facility] Other Encounters Encounter Date Encounter Type Care Provider Facility Start: 07-30-2024 End: 07-30-2024 Bamboo flowsheet Yossi W Bower MD Work Phone: [facility] Start: 07-30-2024 End: 07-30-2024 Bamboo flowsheet Yossi Bower MD Work Phone: [facility] Start: 07-30-2024 End: 07-30-2024 Office outpatient visit 25 minutes Yossi Bower MD Work Phone: [facility] Comment on above: 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); Bilateral foot-drop Start: 07-30-2024 End: 07-30-2024 ambulatory YOSSI BOWER Not Available Start: 07-28-2024 ambulatory [facility] Start: 07-26-2024 End: 07-26-2024 ambulatory [facility] Start: 07-13-2024 End: 07-13-2024 ambulatory [facility] Start: 06-21-2024 End: 06-21-2024 ambulatory YOSSI BOWER Not Available Start: 06-02-2024 ambulatory [facility] Start: 05-28-2024 End: 05-28-2024 ambulatory YOSSI BOWER Not Available Start: 05-18-2024 ambulatory [facility] Start: 03-26-2024 End: 03-26-2024 ambulatory [facility] Start: 03-24-2024 End: 03-24-2024 ambulatory YANCY CERVANTES Not Available Start: 03-23-2024 ambulatory [facility] Start: 03-22-2024 End: 03-22-2024 Emergency department patient visit SAY Licona [facility] Start: 03-09-2024 End: 03-09-2024 ambulatory YANCY CERVANTES Not Available Start: 03-04-2024 ambulatory TIFFANIE [facility] Start: 02-25-2024 End: 02-25-2024 ambulatory YOSSI BOWER Not Available Start: 01-29-2024 End: 01-29-2024 ambulatory [facility] Start: 01-27-2024 ambulatory [facility] Start: 01-22-2024 End: 01-22-2024 ambulatory YANCY M BILLY Not Available Start: 01-21-2024 End: 01-21-2024 ambulatory YANCY Livan BILLY Not Available Start: 01-13-2024 ambulatory [facility] Start: 01-06-2024 End: 01-06-2024 ambulatory YANCY M BILLY Not Available Start: 11-29-2023 End: 12-08-2023 Evaluation and management of inpatient CHARLEE Rush YAZMIN [facility] Start: 11-29-2023 End: 12-08-2023 Evaluation and management of inpatient Abdirahman Hunt MD [facility] Start: 11-28-2023 End: 11-29-2023 Emergency department patient visit [facility] Start: 11-28-2023 End: 12-01-2023 [facility] Start: 11-25-2023 End: 11-26-2023 ambulatory YUDITH [facility] Start: 11-19-2023 End: 11-19-2023 Subsequent hospital visit by physician [facility] Comment on above: Canceled (Patient co ndition) Start: 11-06-2023 End: 11-07-2023 ambulatory [facility] Facility:[facility] Start: 11-06-2023 End: 11-06-2023 ambulatory [facility] Facility:[facility] Start: 11-06-2023 End: 11-06-2023 Patient encounter procedure Obed Florian MD Work Phone: Neurology Comment on above: Diabetic polyneuropa thy associated with type 2 diabetes mellitus (HCC) [E11.42] (Primary Dx); Weakness; Obesity, Class III, BMI 40-49.9 (morbid obesity) (HCC) Start: 10-21-2023 End: 10-22-2023 [facility] Start: 10-10-2023 ambulatory CLAREMONT Livan [facility] Start: 10-08-2023 End: 10-14-2023 Emergency department patient visit [facility] Start: 09-19-2023 End: 09-20-2023 ambulatory SAY Licona Victor Manuel Facility:[facility] Start: 09-12-2023 Telephone encounter Shane bowling PA-C Work Phone: [facility] Comment on above: DBS problem Start: 08-19-2023 End: 08-19-2023 ambulatory [facility] Start: 08-11-2023 End: 08-12-2023 ambulatory Ramon Mendiola MD Facility: [facility] Start: 07-07-2023 Telephone encounter Wesley Rose MD Work Phone: [facility] Start: 02-20-2023 End: 02-21-2023 ambulatory [facility] Facility:[facility] Start: 02-03-2023 End: 03-05-2023 ambulatory CARMICHAEL H [...] 07-10-2022 Encounter for preprocedural laboratory examination DIOGENES GREERO [facility] Start: 07-08-2022 End: 07-09-2022 ambulatory DIOGENES RODRIGUEZ Facility:[facility] Start: 07-08-2022 End: 07-09-2022 Encounter for preprocedural laboratory examination DIOGENES GREERO Facility:[facility] Start: 07-08-2022 End: 08-05-[address] [...] encounter Wesley Rose MD Work Phone: [facility] Comment on above: Results Start: 01-21-2022 End: 01-21-2022 ambulatory [facility] 3 Work Phone: Pre Anesthesia Comment on above: Pre-op evaluation (P rimary Dx); Essential tremor; Type 2 diabetes mellitus with other specified complication, with long-term current use of insulin ([facility]); Obesity, Class III, BMI >= 40; Essential hypertension; Difficult intravenous access; Acute, but ill-defined, cerebrovascular disease; Obstructive sleep apnea syndrome; Chronic obstructive pulmonary disease, unspecified COPD type ([facility]); Tobacco use; Tracheal stenosis; Gastroesophageal reflux disease, unspecified whether esophagitis present; Pulmonary embolus with infarction ([facility]); Congestive heart failure, unspecified HF chronicity, unspecified heart failure type ([facility]); Stage 3 chronic kidney disease, unspecified whether stage 3a or 3b CKD (HCC) 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) (Primary Dx) Start: 01-21-2022 End: 01-21-2022 Nursing evaluation of patient and report Kerwin Brito RN Work Phone: [facility] Comment on above: Essential tremor (Pr imary Dx) Start: 01-21-2022 End: 01-21-2022 Patient encounter procedure Wesley Rose MD Work Phone: [facility] Comment on above: Essential tremor (Pr imary Dx) Start: 01-21-2022 End: 01-21-2022 Admission to establishment [facility] 3 Work Phone: [facility] Start: 01-21-2022 End: 01-21-2022 Preprocedural examination done Pacc Main 3 Work Phone: Pre Anesthesia Start: 01-04-2022 Telephone encounter Harris chowdhury MD Work Phone: [facility] Comment on above: DBS MARIA G message Start: 11-26-2021 End: 11-26-2021 ambulatory Aziz Bakhous Other [facility] Other Start: 11-26-2021 Telephone encounter Aziz Bakhous [facility] Start: 11-13-2021 End: 11-13-2021 ambulatory Aziz Bakhous Other [facility] Other Start: 11-13-2021 Office outpatient ne w 45 minutes Aziz Bakhous [facility] Start: 11-13-2021 Telephone encounter Aziz Bakhous [facility] Start: 07-21-2021 End: 07-27-2021 ambulatory [facility] Facility:[facility] Procedures Date Procedure Procedure Detail Performing [...] Radiologic examinati on foot 2 views Rosalia Willissaint augustine AGER TENDER - CORRECTIONAL THERAPY DIRECTOR Work Phone: Start: 12-05-2023 Glucose blood reagen [...] Phone: Start: 12-02-2023 EEG [place] i AGER TENDER - CORRECTIONAL THERAPY DIRECTOR Work Phone: Start: 12-02-2023 Glucose blood reagen [...] spine w/ o contrast material Crystal Romero AGER TENDER - CORRECTIONAL THERAPY DIRECTOR Work Phone: Start: 11-30-2023 End: 11-30-2023 Assay [...] blood reagent strip Abdirahman Hunt MD Start: 07-17-2023 H/O: tracheostomy History of tracheo stomy Yossi Bower MD Work Phone: Start: 02-20-[address] CARITO MCCORMICK . Comment on above: Performed By: #### A 1C #### [facility] [address] [place] [address] Dr. Miah Buck Start: 07-26-2021 Resection of [...] Cancer Screening Discussion Prostate Cancer Screening Discussion [facility] Start: 02-21-2028 Prostate specific antigen measurement Prostate Cancer Screening Discussion [facility] Start: 2025 Pneumococcal 0-64 years Vaccine (3 - PPSV23 or PCV20) Pneumococcal 0-64 years Vaccine (3 - PPSV23 or PCV20) [facility] Start: 2025 Pneumococcal vaccination [facility] Start: 02-24-2025 Screening for malignant neoplasm of colon [facility] Start: 12-02-2024 GFR test (Diabetes, CKD 3-4, OR last GFR 15-59) GFR test (Diabetes, CKD 3-4, OR last GFR 15-59) [facility] Start: 11-25-2024 Hemoglobin A1c measurement A1C test (Diabetic or Prediabetic) [facility] Start: 09-24-2024 End: 09-24-2024 Patient encounter procedure 09/24/2024 11:30 AM EST [facility] [address] [id number] Yossi Bower MD [address] [facility] [address] Javier [address] [place] [address] [facility] Start: 07-30-2024 End: 07-30-2024 Patient encounter procedure 07/30/2024 11:50 AM EDT Office Visit [facility] [address] [facility] [address] [place] [address] Yossi Bower MD [address] Javier [address] [place] [address] [facility]rived [facility] Comment on above: Arrived Start: 06-06-2024 Influenza vaccination Influenza Vacc ine (#1) [facility] Start: 01-15-2024 End: 01-15-2024 Patient encounter procedure 01/15/2024 11:40 AM EDT Office Visit [facility] Neurology Specialist [address] [place] [address] [address] [place] [phone] Yudith Martinez PA [address] [facility], [address] [place], [place] [id number] [address] labs CT and ophthalmology referral memory [facility] Neurology Specialist Comment on above: 6W labs CT and ophth almology referral memory Start: 12-16-2023 End: 12-16-2023 Patient encounter procedure 12/16/2023 2:00 PM EDT Procedure visit [facility] [address] [place] [id number] Evelyn Claire MD [address] [place] [id number] emg: ble (has heart monitor implanted- not pacemaker) [facility] Comment on above: emg: ble (has heart monitor implanted- not pacemaker) Start: 11-28-2023 End: 11-28-2023 Patient encounter procedure 11/28/2023 1:00 PM EST Appointment [facility] Non-Invasive Cardiology [address] [place], [place] [id number] MEDIA - R/S W/ PT GWEN 11/19/23 BB [facility] Non-Invasive Cardiology Comment on above: MEDIA - R/S W/ PT WI FE GWEN 11/19/23 BB Start: 11-25-2023 End: 11-25-2023 Patient encounter procedure 11/25/2023 11:40 AM EST Office Visit [facility] Neurology Specialist [address] [place] [address] [address] [place] [id number] Yudith Martinez PA [address] [facility], [address] [place] [address] 4W swallow study double vision [facility] Neurology Specialist Comment on above: 4W swallow study cesario ble vision Start: 11-04-2023 End: 11-04-2024 Tilt table Tilt table CV Cardiac Diagnostics Routine Syncope and collapse Expected: 11/04/2023, Expires: 11/04/2024 [facility] Work Phone: Comment on above: Expected: 11/04/2023 , Expires: 11/04/2024 Start: 10-27-2023 Complete blood count Hemoglobin/Juan tocrit [facility] Start: 10-27-2023 Creatinine measurement Serum Creatin ine [facility] Start: 10-27-2023 Serum Creatinine Serum Creatinine Cl [facility] Start: 10-06-2023 Annual Wellness Visi t (Medicare Advantage) Annual Wellness Visit (Medicare Advantage) [facility] Start: 06-06-2023 Covid-19 Vaccine ( season) Covid-19 Vaccine ( season) [facility] Start: 06-06-2023 Influenza vaccination Influenza Vacc ine (#1) [facility] Start: 05-06-2023 Influenza vaccination Flu vaccine (# 1) [facility] Start: 01-21-2023 HEMOGLOBIN/HEMATOCRIT HEMOGLOBIN/HEM ATOCRIT [facility] Start: 01-21-2023 SERUM CREATININE SERUM CREATININE Cl [facility] Start: 11-28-2022 SERUM CREATININE SERUM CREATININE [facility] Start: 06-06-2022 Influenza vaccination INFLUENZ A (Season Ended) [facility] Start: 04-22-2022 Hemoglobin A1c measurement HbA1C [facility] Start: 04-22-2022 Hemoglobin A1c/Hemoglobin.total in Blood HBA1C [facility] Start: 01-20-2022 End: 03-22-2022 Hemoglobin A1c/Hemoglobin.total in Blood HGB A1C Lab Routine Type 2 diabetes mellitus with other specified complication, with long-term current use of insulin (HCC) Pre-op evaluation Expected: 01/20/2022, Expires: 03/22/2022 [facility] Work Phone: Comment on above: Expected: 01/20/2022 , Expires: 03/22/2022 Start: 02-03-2021 COVID-19 VACCINE (2 - Booster for Mary Ellen series) COVID-19 VACCINE (2 - Booster for Mary Ellen series) [facility] Start: 2020 Hepatitis B Vaccine (1 of 3 - Risk 3-dose series) Hepatitis B Vaccine (1 of 3 - Risk 3-dose series) [facility] Start: 2020 Respiratory Syncytia l Virus (RSV) or age 60 yrs+ (1 - 1-dose 60+ series) Respiratory Syncytial Virus (RSV) or age 60 yrs+ (1 - 1-dose 60+ series) [facility] Start: 2020 RSV Vaccine (1 - 1-dose 60+ series) RSV Vaccine (1 - 1-dose 60+ series) [facility] Start: 08-19-2020 Diabetic foot examination Diabetic foot exam [facility] Start: 12-12-2018 Hemoglobin A1c/Hemoglobin.total in Blood HBA1C [facility] Start: 08-29-2016 Urine screening for protein Diabetic Alb to Cr ratio (uACR) test [facility] Start: 08-09-2016 GFR test (Diabetes, CKD 3-4, OR last GFR 15-59) GFR test (Diabetes, CKD 3-4, OR last GFR 15-59) [facility] Start: 07-18-2016 Lipid panel Lipids [facility] Start: 05-05-2016 Hemoglobin A1c measurement A1C test (Diabetic or Prediabetic) [facility] Start: 2015 PROSTATE CANCER SCREENING DISCUSSION PROSTATE CANCER SCREENING DISCUSSION [facility] Start: 07-27-2015 Glaucoma screening Diabetic retinal exam [facility] Start: 2010 Shingles vaccine (1 of 2) Shingles vaccine (1 of 2) [facility] Start: 2010 SHINGRIX VACCINE (1 of 2) SHINGRIX VACCINE (1 of 2) [facility] Start: 2005 COLOGUARD (FIT-DNA) COLOGUARD (FIT-D NA) [facility] Start: 2005 Colonoscopy COLONOSCOPY [facility] Start: 2005 COLORECTAL CANCER SCREENING COLORECTAL CANCER SCREENING [facility] Start: [address] COLONOGRAPHY [facility] Start: 2005 FECAL OCCULT BLOOD FECAL OCCULT BLOO D [facility] Start: 2005 Screening for malignant neoplasm of colon [facility] Start: 2005 SIGMOIDOSCOPY SIGMOIDOSCOPY [facility] Start: 10-07-2000 Urine microalbumin profile DTaP,Tdap,Td Vaccine (1 - Tdap) [facility] Start: 1990 Zoledronic acid therapy Alpha-1 Antitrypsin Deficiency Screening [facility] Start: 1979 DTaP/Tdap/Td vaccine (1 - Tdap) DTaP/Tdap/Td vaccine (1 - Tdap) [employer] [facility] Start: 1979 Urine microalbumin profile [facility] Start: 1978 ANNUAL PCP TEAM CHRONIC DISEASE VISIT ANNUAL PCP TEAM CHRONIC DISEASE VISIT [facility] Start: 1978 BP CONTROLLED (<130/80) BP CONTROLLED (<130/80) [facility] Start: 1978 Hepatitis B surface antibody level LDL CHOLESTEROL [facility] Start: 1978 HEPATITIS C SCREENING HEPATITIS C [facility] Start: 1978 Hepatitis C screening Hepatitis C [facility] Start: 1978 HIV SCREENING HIV SCREENING [facility] Start: 1978 HIV screening HIV Screening [facility] Start: 1975 HIV screening HIV screen [facility] [employer] Start: 1972 Depression Monitoring Depression [facility] [employer] Start: 1970 3 comp foot exam completed DIABETIC FOOT EXAM [facility] Start: 1970 Diabetic foot examination Diabetic Foot Exam [facility] Start: 1970 Glaucoma screening Dilated Retinal E xam [facility] Start: 1970 Hepatitis B screening URINE ALBUMIN:CREATININE RATIO [facility] Start: 1970 Hepatitis C antibody , confirmatory test DILATED RETINAL EXAM [facility] Start: 1960 Screening for malignant neoplasm of colon [facility] Adult NIV/Positive Airway Pressure Adult NIV/Positive Airway Pressure Respiratory Care Routine Every 4hr until discontinued starting 11/30/2023 [employer] Comment on above: Every 4hr until disc ontinued starting 11/30/2023 Continuous pulse oximetry Pulse oximetry, continuous Respiratory Care Routine Every 4hr until discontinued starting 12/03/2023 [employer] Comment on above: Every 4hr until disc ontinued starting 12/03/2023 Glucose [Mass/volume ] in Serum or Plasma [employer] Comment on above: 4X Daily (AC & HS) u ntil discontinued starting 11/30/2023 As Needed until disc ontinued starting 11/30/2023 Hemoglobin A1c/Hemoglobin.total in Blood HGB A1C Lab Routine Type 2 diabetes mellitus with other specified complication, with long-term current use of insulin (HCC) Pre-op evaluation 01/21/2022 9:30 AM EDT [facility] Work Phone: End: 12-23-2023 Hemoglobin and Hematocrit Hemoglobin and Hematocrit Lab Routine Every Other Day for 10 Occurrences starting 12/05/2023 until 12/23/2023, 2 completed [employer] Comment on above: Every Other Day for 10 Occurrences starting 12/05/2023 until 12/23/2023, 2 completed Oxygen therapy [Minimum Data Set] Initiate Oxygen Therapy Protocol Respiratory Care Routine As Needed until discontinued starting 11/29/2023 [employer] Comment on above: As Needed until disc ontinued starting 11/29/2023 End: 12-23-2023 Platelets [#/volume] in Blood Platelet Count Lab Routine Every Other Day for 10 Occurrences starting 12/05/2023 until 12/23/2023, 2 completed [employer] Comment on above: Every Other Day for 10 Occurrences starting 12/05/2023 until 12/23/2023, 2 completed End: 12-14-2023 Protime-INR Protime-INR Lab Routine Daily for 7 Days starting 12/08/2023 until 12/14/2023, 1 completed [employer] Comment on above: Daily for 7 Days sta rting 12/08/2023 until 12/14/2023, 1 completed End: 11-30-2023 VALET PARKER clinical swallow evaluation VALET PARKER clinical swallow evaluation VALET PARKER Routine One Time for 1 Occurrences starting 11/30/2023 until 11/30/2023 [employer] Work Phone: Comment on above: One Time for 1 Occur rences starting 11/30/2023 until 11/30/2023 End: 11-30-2023 SPECIMEN REJECTION [employer] Comment on above: Once for 1 Occurrenc es starting 11/30/2023 until 11/30/2023 End: 11-30-2023 Speech and language therapy regime VALET PARKER eval and treat VALET PARKER Routine One Time for 1 Occurrences starting 11/30/2023 until 11/30/2023 [facility] Comment on above: One Time for 1 Occur rences starting 11/30/2023 until 11/30/2023 STAPH AUREUS PCR STAPH AURE[facility] PC R Lab Routine 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) Ordered: 01/21/2022 [facility] Work Phone: Comment on above: Ordered: 01/21/2022 [facility] Immunizations Immunization Date Immunization Notes Care Provider [facility] 07-19-2021 Influenza, injectabl e, Madin Montevallo Canine Kidney, preservative free, quadrivalent Yossi Bower MD Work Phone: [facility] 07-19-2021 influenza virus vacc ine, unspecified formulation Wesley Rose MD Work Phone: [facility] 07-07-2020 Influenza, injectabl e, Madin [place] Canine Kidney, preservative free, quadrivalent Harris Faustin MD Work Phone: [facility] 08-01-2019 influenza virus vacc ine, unspecified formulation Harris Faustin MD Work Phone: [facility] 08-10-2018 influenza, injectabl e, quadrivalent, preservative free Harris Faustin MD Work Phone: [facility] 07-24-2018 Influenza, injectabl e, Madin [place]vallo Canine Kidney, preservative free, quadrivalent Harris Faustin MD Work Phone: [facility] 09-10-2017 influenza virus vacc ine, unspecified formulation Harris Faustin MD Work Phone: [facility] 08-11-2017 pneumococcal polysaccharide vaccine, 23 valent Harris Faustin MD Work Phone: [facility] 08-05-2016 influenza virus vacc ine, unspecified formulation Harris Faustin MD Work Phone: [facility] 11-13-2015 pneumococcal conjuga te vaccine, 13 valent Harris Faustin MD Work Phone: [facility] 07-18-2015 influenza virus vacc ine, unspecified formulation [facility] 07-18-2015 influenza virus vacc ine, whole virus Harris Faustin MD Work Phone: [facility] 07-06-2015 influenza, high dose seasonal, preservative-free Harris Faustin MD Work Phone: [facility] 09-13-2014 influenza, injectabl e, quadrivalent, preservative free Harris Faustin MD Work Phone: [facility] 08-06-2014 influenza virus vacc ine, unspecified formulation Yossi Bower MD Work Phone: [facility] 06-25-2013 influenza, seasonal, injectable, preservative free Harris Faustin MD Work Phone: [facility] 06-17-2012 influenza, seasonal, injectable Harris Faustin MD Work Phone: [facility] 09-11-2010 pneumococcal polysaccharide vaccine, 23 valent Harris Faustin MD Work Phone: [facility] 10-06-2002 influenza virus vacc ine, unspecified formulation Yossi Bower MD Work Phone: [facility] 10-06-2000 TD(adult) unspecifie d formulation Yossi Bower MD Work Phone: [facility] Payers Date Payer Category Payer Medicare (Managed Care) [employer] [id number] 2024 Medicare [id number] 2021 Medicare [id number]. [id number] 2021 Medicare [id number] [id number]. [id number] 2021 Unknown [id number] 2019 Unknown ANTHEM BLUE CROS S AND BLUE SHIELD ANTHEM MEDIBLUE HMO [id number] 2019-Present [phone] [address] [place] [address] O [id number]. [id number] 2019 Medicaid 2018 Unknown [id number] 1960 Unknown [id number] 2.16.840.1.080498.3.579.2. 647 1960 Unknown [id number] 2.16.840.1.567803.3.579.2. 593 1960 Unknown [id number] 2.16.840.1.429942.3.579.2. 593 1960 Unknown [id number] 2.16.840.1.798368.3.579.2. 593 1960 Unknown [id number] 2.16.840.1.655755.3.579.2. 593 1960 Unknown [id number] 2.16.840.1.071466.3.579.2. 593 1960 Unknown [id number] 2.16.840.1.818466.3.579.2. 593 1960 Unknown [id number] 2.16.840.1.700860.3.579.2. 593 1960 Unknown [id number] 2.16.840.1.726903.3.579.2. 593 1960 Unknown [id number] 2.16.840.1.368881.3.579.2. 593 1960 Unknown [id number] 2.16.840.1.859435.3.579.2. 593 1960 Unknown [id number] 2.16.840.1.864927.3.579.2. 593 1960 Unknown [id number] 2.16.840.1.945376.3.579.2. 593 1960 Unknown [id number] 2.16.840.1.634906.3.579.2. 593 1960 Unknown [id number] 2.16.840.1.612298.3.579.2. 593 1960 Unknown [id number] 2.16.840.1.882939.3.579.2. 593 1960 Unknown [id number] 2.16.840.1.192746.3.579.2. 593 1960 Unknown [id number] 2.16.840.1.234856.3.579.2. 593 1960 Unknown [id number] 2.16.840.1.577432.3.579.2. 593 1960 Unknown [id number] 2.16.840.1.612613.3.579.2. 593 1960 Unknown [id number] 2.16.840.1.744291.3.579.2. 196 1960 Unknown [id number] 2.16.840.1.329237.3.579.2. 1286 1960 Unknown [id number] 2.16.840.1.251771.3.579.2. 1286 1960 Unknown [id number] 2.16.840.1.959613.3.579.2. 1286 1960 Unknown [id number] 2.16.840.1.409724.3.579.2. 1286 1960 Unknown [id number] 2.16.840.1.236005.3.579.2. 1286 1960 Unknown [id number] 2.16.840.1.325673.3.579.2. 1286 1960 Unknown [id number] 2.16.840.1.638659.3.579.2. 177 1960 Unknown [id number] 2.16.840.1.500840.3.579.2. 173 1960 Unknown [id number] 2.16.840.1.462160.3.579.2. 173 1960 Unknown [id number] 2.16.840.1.905263.3.579.2. 175 1960 Unknown [id number] 2.16.840.1.776388.3.579.2. 1286 1960 Unknown [id number] 2.16.840.1.214201.3.579.2. 1259 1960 Unknown [id number] 2.16.840.1.794574.3.579.2. 1259 1960 Unknown [id number] 2.16.840.1.687300.3.579.2. 1259 1960 Unknown [id number] 2.16.840.1.746873.3.579.2. 1259 1960 Unknown [id number] 2.16.840.1.179683.3.579.2. 1259 1960 Unknown [id number] 2.16.840.1.725295.3.579.2. 1259 1960 Unknown [id number] 2.16.840.1.159615.3.579.2. 1259 1960 Unknown [id number] 2.16.840.1.094217.3.579.2. 1259 1960 Unknown [id number] 2.16.840.1.657398.3.579.2. 1259 1959 Private Health Insurance [id number] Unknown [id number] 2.16.840.1.638188.19 Social History Date Type Detail Facility Start: 05-31-2013 End: 01-06-2024 Tobacco smoking status NHIS Never smoked tobacco [facility] Work Phone: Start: 05-31-2013 End: 10-27-2023 Tobacco use and exposure Former smokeless tobacco user [facility] Work Phone: End: 09-17-2015 History of tobacco use Chews Tobacco [facility] Work Phone: Start: 06-15-2021 End: 11-06-2023 Alcohol intake Current non-drinker of alcohol (finding) [facility] Start: 01-04-2020 History SDOH Alcohol Frequency 1 [facility] Start: 01-04-2020 Tobacco Comment 30 years [facility] Start: 1960 Sex Assigned At Male [facility] Start: 05-31-2013 End: 09-19-2023 Tobacco use and exposure User of smokeless tobacco [facility] Work Phone: Start: 01-11-2022 End: 01-21-2022 Exposure to SARS-CoV-2 (event) Not sure [facility] Start: 01-04-2020 End: 07-30-2024 Sex Assigned At [facility] History of tobacco use Cigarette Smoker [facility] Work Phone: Start: 01-04-2020 End: 07-30-2024 History of Social function [facility] How often to you hav e a drink containing alcohol? Never [facility] Average Number of Drinks Not on file [facility] Start: 08-16-2019 Gender identity Identifies as male gender (finding) [facility] Start: 08-16-2019 Sexual orientation Heterosexual (demetrius no) [facility] Start: 10-28-2023 End: 12-03-2023 Alcohol intake Lifetime non-drinker (finding) [employer] Has the electric, gas, oil, or water company threatened to shut off services in your home in past 12Mo No [employer] (I/We) worried whether (my/our) food would run out before (I/we) got money to buy more. Never true [employer] Start: 01-06-2024 Tobacco use and exposure Smokeless tobacco non-user [facility] NEGATED: Highlighted rowStart: HERNÁN History of tobacco use Passive smoker [facility] [employer] Procedure Code Equipment Code Equipment Origin al Text Equipment Identifier Dates Ipg Activa Sc Db s Dual Extn - [id number] Start: 06-30-2013 Comment on above: Description: ACTIVA SC Multi-program Leonor rostimulator for deep Brain Stimulation Neurostimulator Activa Sc 0-10.5v 2-250hz 0-25.5ma 2.4inx2.2in .4in - [id number] Start: 07-24-2016 Neurostimulator Activa Sc 0-10.5v 2-250hz 0-25.5ma 2.4inx2.2in .4in - [id number] Start: 06-30-2019 Neurostimulator Activa Sc 0-10.5v 2-250hz 0-25.5ma 2.4inx2.2in .4in - [id number] Start: 01-30-2022 [id number] Start: 06-29-2014 Comment on above: Use as directed sq bid Clinical Notes 03-22-2021 to 08-03-2024 Yossi Bower MD - 07/30/2024 11:50 AM Janneth Villa RN - 12/08/2023 6:28 PM Janneth Dennison RN - 12/08/2023 6:01 PM Lori Fernandes MD - 12/08/2023 3:35 PM [facility] - CHERIE Note Date & Type Note Facility 08-03-[address] Crespo- alba pedraza. I used abnormal CXR for pulmonary referral. Thanks. [facility] 07-30-2024 History of Present illness Narrative Images from the original note were not included. CHIEF COMPLAINT REASON FOR VISIT: CIDP HPI: Andry Pierre is a 63 y.o. male who presents for a follow up. He states his legs have been more weak. He states he has has had increased burning and swelling. He states his battery in his DBS. He was given the number to call since referral was placed. He states he has to meet with cardiology team as he has heart failure. He states he cannot stand. He is asking about AFO braces. He states he used to have some many years ago. He states the pain in his back and legs keep going to the left and right. Worse on the left. He states the pain keeps shifting. CURRENT MEDICATIONS: ALLERGIES/DISCONTINUE MEDICATIONS Current Outpatient Medications Medication Instructions amitriptyline (ELAVIL) 25 mg, Oral, Nightly atorvastatin (Lipitor) 40 MG tablet 1 tablet, Oral, Daily baclofen (LIORESAL) 10 mg, Oral, 3 times daily Blood Glucose Monitoring Suppl (Accu-Chek Guide Me) w/Device kit USE DIRECTED DAILY candesartan (ATACAND) 8 mg, Oral, Daily cetirizine (ZyrTEC) 10 MG tablet 1 tablet, Oral, Daily cloNIDine (CATAPRES) 0.05 mg, Oral, 2 times daily dexAMETHasone (DECADRON) 2 mg, Oral, 2 times daily with meals dexAMETHasone (DECADRON) 2 mg, Oral, 2 times daily with meals Eliquis 5 mg, Oral, 2 times daily furosemide (Lasix) 40 MG tablet 1 tablet, Oral, 2 times daily Gamunex-C 40 GM/400ML solution Incruse Ellipta 62.5 MCG/ACT aerosol powder indomethacin (INDOCIN) 50 mg, Oral, 2 times daily with meals Jardiance 25 mg, Oral, Daily Linzess 145 mcg, Oral, Daily before breakfast metFORMIN (Glucophage) 500 MG tablet 1 tablet, Oral, 2 times daily metoprolol tartrate (LOPRESSOR) 50 mg, Oral, Daily montelukast (SINGULAIR) 10 mg, Oral, Nightly naloxone (Narcan) 4 mg/0.1 mL nasal spray PLEASE SEE ATTACHED FOR DETAILED DIRECTIONS NIFEdipine XL (Procardia XL) 90 MG 24 hr tablet 1 tablet, Oral, Daily ondansetron ODT (ZOFRAN-ODT) 4 mg, Oral, Every 8 hours PRN OXcarbazepine (Trileptal) 150 MG tablet TAKE 1 TABLET BY MOUTH EVERY DAY IN THE MORNING AND TAKE 1 TABLET BY MOUTH DAILY AT BEDTIME oxybutynin XL (Ditropan-XL) 10 MG 24 hr tablet 1 tablet, Oral, Daily oxyCODONE (Roxicodone) 10 MG immediate release tablet TAKE 1 TO 2 TABLETS BY MOUTH EVERY 4 HOURS NEEDED FOR PAIN pantoprazole (ProtoNix) 40 MG EC tablet 1 tablet, Oral, Daily potassium chloride CR (K-Tab) 20 MEQ ER tablet 20 mEq, Oral, Daily topiramate (TOPAMAX) 200 mg, Oral, 2 times daily Tresiba FlexTouch 60 Units, Subcutaneous Allergies Allergen Reactions Beta Adrenergic Blockers Other Reaction(s): headaches, nausea Diazepam Other and Unknown Was on the ground after took it Gabapentin Other and Unknown Hydralazine Headache, nausea, sick There are no discontinued medications. PAST MEDICAL HISTORY: SURGICAL/SOCIAL/FAMILY HISTORY DEPRESSION SCREEN: Past Medical History: Diagnosis Date Depression (CMS/HCC) Diabetes mellitus (CMS/HCC) Difficulty walking Head injury Hypertension (CMS/HCC) Memory loss Stroke (CMS/HCC) Weakness of limb Past Surgical History: Procedure Laterality Date ANKLE SURGERY Left APPENDECTOMY CARPAL TUNNEL RELEASE Right CHOLECYSTECTOMY CT GUIDED TRANSVAGINAL TRANSRECTAL FLUID DRAIN 06/12/2018 CT GUIDED TRANSVAGINAL TRANSRECTAL FLUID DRAIN 06/12/2018 INSERTION / REMOVAL CRANIAL DBS GENERATOR 2020 IR LUMBAR PUNCTURE 06/12/2018 IR LUMBAR PUNCTURE 06/12/2018 KNEE SURGERY Left NECK SURGERY tumor removed TRACHEOSTOMY CLOSURE UVULOPALATOPHARYNGOPLASTY Social History Tobacco Use Smoking status: Never Smokeless tobacco: Never Family History Problem Relation Name Age of Onset Heart attack Mother Heart attack Father Kidney disease Father Depression: Not at risk (06/02/2024) Received from [facility] PHQ-2 Patient Health Questionnaire-2 Score: 0 REVIEW OF SYMPTOMS: Review of Systems Constitutional: Negative for chills, diaphoresis, fatigue and fever. HENT: Negative for ear pain, tinnitus and trouble swallowing. Eyes: Negative for photophobia and visual disturbance. Respiratory: Negative for cough and shortness of breath. Cardiovascular: Negative for palpitations and leg swelling. Gastrointestinal: Negative for abdominal pain and nausea. Genitourinary: Negative for difficulty urinating and urgency. Musculoskeletal: Negative for arthralgias, back pain, myalgias, neck pain and neck stiffness. Neurological: Negative for tremors, weakness, light-headedness and numbness. Psychiatric/Behavioral: Negative for agitation, confusion and suicidal ideas. OBJECTIVE: 05/28/2024 10:57 AM 03/24/2024 8:45 AM 01/06/2024 9:04 AM Vitals BMI 53.46 kg/m2 53.46 kg/m2 BSA (m2) 2.83 m2 2.83 m2 Systolic 144 122 Diastolic 88 80 Height (in) 5' 9 5' 9 Weight (lb) -- Visit Report Report Report Report EXAM: Neurological Exam Mental Status Awake, alert and oriented to person, place and time. Oriented to person, place and time. Recent and remote memory are intact. Speech is normal. Language is fluent with no aphasia. Attention and concentration are normal. Cranial Nerves CN II: Visual acuity is normal. Visual weiss full to confrontation. CN III, IV, : Extraocular movements intact bilaterally. Normal lids and orbits bilaterally. Pupils equal round and reactive to light bilaterally. CN V: Facial sensation is normal. CN VII: Full and symmetric facial movement. CN VIII: Hearing is normal. CN XII: Tongue midline without atrophy or fasciculations. Motor Normal muscle bulk throughout. Normal muscle tone. Right Left Wrist flexion 5 5 Wrist extension 5 5 Right Left Deltoid 5 5 Biceps 5 5 Triceps 5 5 Wrist flexor 5 5 Wrist extensor 5 5 Glutei 5 5 Iliopsoas 5 5 Quadriceps 5 5 Gastrocnemius 5 5 Anterior tibialis 5 5 Posterior tibialis 5 5 Sensory Light touch is normal in upper and lower extremities. Pinprick is normal in upper and lower extremities. Vibration is normal in upper and lower extremities. Reflexes Right Left Brachioradialis 2+ 2+ Biceps 2+ 2+ Patellar 2+ 2+ Achilles 2+ 2+ Right Plantar: downgoing Left Plantar: downgoing Right pathological reflexes: Roshni's absent. Ankle clonus absent. Left pathological reflexes: Roshni's absent. Ankle clonus absent. Coordination Udoptr-lv-xeko, rapid alternating movements and vzvn-un-njoq normal bilaterally without dysmetria. Gait Normal casual, toe, heel and tandem gait. Romberg is absent. PROCEDURE: NONE ASSESSMENT AND PLAN: Diagnoses and all orders for this visit: CIDP (chronic inflammatory demyelinating polyneuropathy) ([facility]) - OXcarbazepine (Trileptal) 150 MG tablet; Take 0.5 tablets (75 mg) by mouth in the morning and 0.5 tablets (75 mg) in the evening and 0.5 tablets (75 mg) before bedtime. - dexAMETHasone (Decadron) 2 MG tablet; Take 1 tablet (2 mg) by mouth in the morning and 1 tablet (2 mg) in the evening. Take with meals. Do all this for 10 days. 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 (CMS/HCC) - OXcarbazepine (Trileptal) 150 MG tablet; Take 0.5 tablets (75 mg) by mouth in the morning and 0.5 tablets (75 mg) in the evening and 0.5 tablets (75 mg) before bedtime. Bilateral foot-drop - General supply request: Bilateral AFO braces I will send in order for bilateral AFO brace to [facility]. Follow up 8-12 weeks. documented in this encounter [facility] 07-26-2024 Note [place] [facility] Note Reason for cardiology follow-up: Per Dr. Rodriguez for possible worsening heart failure Chief Complaint: Chest pain and worsening legs edema HPI: 07/26/2024 The patient states that he has been having on and off chest pressure going on for couple years not related to exertion because he does not exert himself a lot, sometimes brief and sometimes it lasts for the whole day when he is stressed out. Patient cannot walk much, he uses a walker only to transport himself from and to the wheelchair because of significant legs weakness. He was diagnosed with chronic inflammatory demyelinating neuropathy but he could not tolerate treatment with IV infusion due to side effects. Currently he is on Decadron. He states that sometimes he feels little short of breath. He is not on oxygen at home. The patient reports that in the past he had respiratory failure required a trach when he weighed about 600 pounds and later on he was diagnosed with a right heart failure after he underwent cardiac MRI. He used to have sleep apnea however he stopped CPAP after he lost a lot of weight. He told me that he had a sleep study couple years ago and he stopped breathing only once. He denies orthopnea or paroxysmal nocturnal dyspnea however he sleeps in recliner because of back pain. His legs edema has been worsening a lot and he has not been able to wear the compression stocking because the edema is persistent. As mentioned above the patient sleeps in a recliner and his legs are in dangling position all the time. 03/26/2024 Andry Pierre is a 63 y.o. male [...] He has a past medical history of CHF (congestive heart failure) (CMS/HCC), Chronic inflammatory demyelinating neuropathy (CMS/HCC), Chronic kidney disease, Diabetes mellitus (CMS/HCC), Dyslipidemia, Hypertension, Obstructive sleep apnea, and Pulmonary embolism (CMS/HCC). Surgical History He has a past surgical [...] at the same time., Disp: , Rfl: amitriptyline (Elavil) 25 mg tablet, TAKE 2 TABLETS BY MOUTH ONCE DAILY AT BEDTIME FOR 30 DAYS, Disp: , Rfl: apixaban (Eliquis) 5 mg tablet, Take 5 mg by mouth in the morning and at bedtime., Disp: , Rfl: atorvastatin (Lipitor) [...] D3, 50 mcg (2,000 unit) capsule, Take (more content not included)... [facility] 07-13-2024 Note Pt is here for a thr ee month follow up. [place] Cardiology Consult Note Reason for Consultation: Syncope, s/p loop implant 01/09/23 07/13/24 Patient had a loop check done which revealed multiple episodes of bradycardia but no atrial fibrillation was seen. He is limited by his LE and UE weakness from CIDP and unable to tolerate infusion treatment. 10/21/23 Telephone apt today for follow up [facility] for chest pain. He was seen as [...] reveals no events. Had recent ECHO at [place] which was normal. LOOP: ECHO 10/08/23 08/19/23: [...] in the morning and at bedtime. HYDROcodone-acetaminophen ([place]) 5-325 mg tablet indomethacin (Indocin) 50 mg capsule TAKE 1 CAPSULE BY MOUTH THREE TIMES A DAY NEEDED FOR PAIN WITH FOOD OR MILK insulin degludec (Tresiba FlexTouch) 100 unit/mL (3 mL) injection every 12 (twelve) hours. Jardiance 10 mg Take 25 mg by mouth 1 (one) (more content not included)... [facility] 06-02-2024 Note HPI Reported by patient, [...] Follow up with Dr Davies after [facility] 03-26-2024 Note [place] [facility] Note Reason for cardiology [...] history of Chronic kidney disease, Diabetes mellitus ([facility]), Dyslipidemia, Hypertension, and Obstructive sleep apnea. Surgical [...] and at bedtime., Disp: , Rfl: HYDROcodone-acetaminophen ([place]) 5-325 mg tablet, , Disp: , Rfl: [...] 40 mg by (more content not included)... [facility] 01-29-2024 Note [place] [facility]iology - [facility] Reason for Consultation: Syncope, s/p loop [...] unresponsive during this. He was sent to [facility] for neuro eval. He continues to [...] 10/21/23 Telephone apt today for follow up [facility] for chest pain. He was seen as [...] reveals no events. Had recent ECHO at [place] which was normal. LOOP: 08/19/23: Here for [...] on file Intimate Partner Violence: Unknown (11/27/2023) [place] Safety & Environment Fear of Current or Ex-Partner: Not on file Emotionally Abused: Not on file Physically Abu (more content not included)... [facility] 01-29-2024 Note Patient here for 2 w craig follow up diastolic heart failure, hx of [...] All other systems reviewed and are negative. [facility] 01-13-2024 Note [place] [facility]iology - [facility] Reason for Consultation: Syncope, s/p loop [...] unresponsive during this. He was sent to [facility] for neuro eval. He continues to have [...] 10/21/23 Telephone apt today for follow up [facility] for chest pain. He was seen as [...] reveals no events. Had recent ECHO at [place] which was normal. LOOP: 08/19/23: Here for [...] file Meds: Current (more content not included)... [facility] 12-08-2023 History of Present illness Narrative Called report to Bee Brennan at [phone]. Answered all questions and advised that the patient will be leaving here around 8:00 PM tonight. Attempted to call report to Mika at [phone]. Was on hold for over 10 minutes. Images from the original note were not included. [facility] Office: [phone] Alberto Rice DO, Luciano Murphy DO, Humza [...] Mobley CNP, Criss Gray CNP, Lefty Matute, SHERYL, Brittny Quinones DNP, Kacey Meeks CNP, Sugey Barillas CNP, Mary Jo Bonner CNP, Jodi Granados CNP, Sigrid Velásquez CNP, KATHRIN McmillanC, KATHRIN MercedesC, Savi Iqbal, CORRECTIONAL THERAPY DIRECTOR, Beckie Mello, CORRECTIONAL THERAPY DIRECTOR, Nora Mace, CORRECTIONAL THERAPY DIRECTOR, Jyoti Rojo, ANICETO, Ronda Sellers, SHERYL, Janell Hoyt, CORRECTIONAL THERAPY DIRECTOR, Caryl Gonzalze, CORRECTIONAL THERAPY DIRECTOR [facility] IN-PATIENT SERVICE [facility] Progress Note 12/08/2023 3:35 PM Name: Andry Pierre Acct: [id number] Room: 0143/0143-01 IP Day: 9 Admit Date: 11/29/2023 8:06 PM PCP: Say Mccormick MD Code Status: Full Code Subjective: C/C: chest pain and dizziness Interval History Status: not changed. DEEPTIEO Doing well this morning without complaints Bp [...] brain stimulator 10/2008 who initially presented to [facility] 11/24 s/p fall in bathroom with acute left hip/upper thigh and back pain (hit head, no LOC) presents with No chief complaint on file. and is admitted to the hospital for the management of AMS (altered mental status). Patient transferred from [facility] after undergoing tilt table evaluation for concern for orthostasis on 11/28/2022 with history of recurrent episodes of dizziness with history of stroke, complicated history. tilt table test complicated by worsening acute symptoms of dizziness with chest pain with altered sensorium. Although tilt test unremarkable for orthostasis, patient was evaluated in ED with acute symptoms and recommended admission pending transfer to [facility] for neurology evaluation. Unfortunately with bed [...] with occasional shortness of breath While in [facility] ED patient did develop symptomatic hypoglycemia with blood sugars in the 50s with symptoms of feeling funny . 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 Subsequently returned status post fall 11/24 with [...] of Arthritis, Asthma, CHF (congestive heart failure) ([facility]), CKD (chronic kidney disease) stage 2, GFR 60-89 ml/min, Clotting disorder ([facility]), Congenital heart disease, COPD (chronic obstructive pulmonary disease) ([facility]), Depression, Emphysema of lung ([facility]), GERD (gastroesophageal reflux disease), GERD [...] F (36.8 C) Recent Labs 12/07/23 1800 12/07/23 2012 12/08/23 0821 12/08/23 1250 POCGLU 154* 193* 137* [...] 03:20 PM PO2ART 92.5 08/22/2011 03:20 PM YQP2UUT 26.0 08/22/2011 03:20 PM NBEA NOT REPORTED 08/22/2011 03:20 PM PBEA 1.8 08/22/2011 03:20 PM [id number] 95.6 08/22/2011 03:20 PM FIO2 INFORMATION NOT PROVIDED 11/30/2023 12:05 AM Lab Results Component Value Date/Time SPECIAL NOT REPORTED 10/20/2012 10:15 AM SPECIAL NOT REPORTED 10/20/2012 10:15 AM Lab Results Component Value Date/Time CULTURE NO GROWTH 10/20/2012 10:15 AM CULTURE 10/20/2012 10:15 AM Performed at [facility] [address] [address] Radiology: XR CHEST (2 VW) Result Date: [...] 2 units and then adjust accordingly Recurrent VIAg-HVLb-eufxii neurology plan History of prothrombin gene mutation with prior DVT-continue Coumadin CKD stage III-continue to monitor creatinine and will need follow-up with nephrology/PCP PAM on CPAP Hx of dvt: on coumadin. Pharmacy managing Discharge planning after the above workup Lori Leblanc MD 12/08/2023 3:35 PM Physical Therapy Facility/Department: [address] [place] Physical Therapy Treatment Note Name: Andry Pierre : 1960 Date of Service: 12/08/2023 Discharge Recommendations: Patient would benefit from continued therapy after discharge PT Equipment Recommendations Equipment Needed: No Other: Pt owns walker, cane and walker Patient Diagnosis(es): There were no encounter diagnoses. Past Medical History: has a past medical history of Arthritis, Asthma, CHF (congestive heart failure) ([facility]), CKD (chronic kidney disease) stage 2, GFR 60-89 ml/min, Clotting disorder ([facility]), Congenital heart disease, COPD (chronic obstructive pulmonary disease) ([facility]), Depression, Emphysema of lung ([facility]), GERD (gastroesophageal reflux disease), GERD (gastroesophageal reflux disease), Gout, Headache(784.0), Hernia, Hernia, History of blood clots, History of DVT (deep vein thrombosis), Hyperlipidemia, Insomnia, Irritable bowel syndrome, Kidney stones, Lumbar degenerative disc disease, Lumbar radiculopathy, Obesity, PAM (obstructive sleep apnea), Parkinson disease, Parkinson's disease, Post traumatic stress disorder, Renal disease, Rheumatoid arthritis ([facility]), Stroke ([facility]), Stroke risk, Tracheostomy in place ([facility]), Tremors of nervous system, Type [...] abduction/adduction, heel/toe raises, and marches Reps 20 AM-[facility] - Mobility AM-[facility] Basic Mobility - Inpatient How much [...] 3-5 steps with a railing?: A Lot [facility] Inpatient Mobility Raw Score : 15 [facility] Inpatient T-Scale Score : 39.45 Mobility [...] other days (per medication management clinic in [place], last visit 11/11; clinic noted recent dose [...] today Daily PT/INR while inpatient. Nolan Mccarty, PharmD, 12/08/2023 11:58 AM Pharmacy Note Warfarin Consult follow-up Warfarin dose prior to admission: 17.5 mg Sun, 15 mg all other days (per medication management clinic in [place], last visit 11/11; clinic noted recent dose [...] from the original note were not included. [facility] Office: [phone] Alberto Rice DO, Luciano Murphy DO, Humza [...] Brittny Quinones DNP, Kacey Meeks CNP, Sugey Braillas CNP, Mary Jo Bonner CNP, Jodi Granados CNP, Sigrid Velásquez, CORRECTIONAL THERAPY DIRECTOR, Janine Turpin PA-C, KATHRIN MercedesC, Savi Iqbal, CORRECTIONAL THERAPY DIRECTOR, Beckie Mello, CORRECTIONAL THERAPY DIRECTOR, Nora Mace, CORRECTIONAL THERAPY DIRECTOR, Jyoti Rojo, ANICETO, Ronda Sellers, CORRECTIONAL THERAPY DIRECTOR, Janell Hoyt, CORRECTIONAL THERAPY DIRECTOR, Caryl Gonzalez, CORRECTIONAL THERAPY DIRECTOR [facility] IN-PATIENT SERVICE [facility] Progress Note 12/07/2023 9:05 AM Name: Andry Pierre Acct: [id number] Room: 0143/0143-01 IP Day: 8 Admit Date: 11/29/2023 8:06 [...] brain stimulator 10/2008 who initially presented to [facility] 11/24 s/p fall in bathroom with acute left hip/upper thigh and back pain (hit head, no LOC) presents with No chief complaint on file. and is admitted to the hospital for the management of AMS (altered mental status). Patient transferred from [facility] after undergoing tilt table evaluation for concern for orthostasis on 11/28/2022 with history of recurrent episodes of dizziness with history of stroke, complicated history. tilt table test complicated by worsening acute symptoms of dizziness with chest pain with altered sensorium. Although tilt test unremarkable for orthostasis, patient was evaluated in ED with acute symptoms and recommended admission pending transfer to [facility] for neurology evaluation. Unfortunately with bed [...] with occasional shortness of breath While in [facility] ED patient did develop symptomatic hypoglycemia with blood sugars in the 50s with symptoms of feeling funny . 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 Subsequently returned status post fall 11/24 with [...] of Arthritis, Asthma, CHF (congestive heart failure) ([facility]), CKD (chronic kidney disease) stage 2, GFR 60-89 ml/min, Clotting disorder ([facility]), Congenital heart disease, COPD (chronic obstructive pulmonary disease) ([facility]), Depression, Emphysema of lung ([facility]), GERD (gastroesophageal reflux disease), GERD [...] 03:20 PM PO2ART 92.5 08/22/2011 03:20 PM EIR7MKH 26.0 08/22/2011 03:20 PM NBEA NOT REPORTED 08/22/2011 03:20 PM PBEA 1.8 08/22/2011 03:20 PM [id number] 95.6 08/22/2011 03:20 PM FIO2 INFORMATION NOT PROVIDED 11/30/2023 12:05 AM Lab Results Component Value Date/Time SPECIAL NOT REPORTED 10/20/2012 10:15 AM SPECIAL NOT REPORTED 10/20/2012 10:15 AM Lab Results Component Value Date/Time CULTURE NO GROWTH 10/20/2012 10:15 AM CULTURE 10/20/2012 10:15 AM Performed at [facility] [address] [address] Radiology: XR CHEST (2 VW) Result Date: [...] (HCC) Generalized weakness CHF (congestive heart failure) ([facility]) Uncontrolled hypertension Dysphagia GERD (gastroesophageal [...] 2 units and then adjust accordingly Recurrent TLCh-CBDb-cwnaie neurology plan History of prothrombin gene mutation with prior DVT-continue Coumadin CKD stage III-continue to monitor creatinine and will need follow-up with nephrology/PCP PAM on CPAP Hx of dvt: on coumadin. Pharmacy managing Discharge planning after the above workup Lori Leblanc MD 12/07/2023 9:05 AM Images from the original note were not included. [facility] Office: [phone] Alberto Rice DO, Luciano Murphy DO, Humza [...] Matute CNP, Brittny Quinones, COLTON, Kacey Meeks, CORRECTIONAL THERAPY DIRECTOR, Sugey Barillas CORRECTIONAL THERAPY DIRECTOR, Mary Jo Bonner CORRECTIONAL THERAPY DIRECTOR, Jodi Granados, CORRECTIONAL THERAPY DIRECTOR, Sigrid Velásquez, CORRECTIONAL THERAPY DIRECTOR, Janine Turpin, PA-C, Sue Willams, PA-C, Savi Iqbal, CORRECTIONAL THERAPY DIRECTOR, Beckie Mello, CORRECTIONAL THERAPY DIRECTOR, Nora Mace, CORRECTIONAL THERAPY DIRECTOR, Jyoti Rojo, BENCH MECHANIC, Ronda Sellers, CORRECTIONAL THERAPY DIRECTOR, Janell Hoyt, CORRECTIONAL THERAPY DIRECTOR, Caryl Gonzalez, CORRECTIONAL THERAPY DIRECTOR [facility] IN-PATIENT SERVICE [facility] Progress Note 12/06/2023 1:56 PM Name: Andry Pierre Acct: [id number] Room: [facility]0143-01 Day: 7 Admit Date: 11/29/2023 8:06 PM [...] brain stimulator 10/2008 who initially presented to [facility] 11/24 s/p fall in bathroom with acute left hip/upper thigh and back pain (hit head, no LOC) presents with No chief complaint on file. and is admitted to the hospital for the management of AMS (altered mental status). Patient transferred from [facility] after undergoing tilt table evaluation for concern for orthostasis on 11/28/2022 with history of recurrent episodes of dizziness with history of stroke, complicated history. tilt table test complicated by worsening acute symptoms of dizziness with chest pain with altered sensorium. Although tilt test unremarkable for orthostasis, patient was evaluated in ED with acute symptoms and recommended admission pending transfer to [facility] for neurology evaluation. Unfortunately with bed [...] with occasional shortness of breath While in [facility] ED patient did develop symptomatic hypoglycemia with blood sugars in the 50s with symptoms of feeling funny . 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 Subsequently returned status post fall 11/24 with [...] of Arthritis, Asthma, CHF (congestive heart failure) ([facility]), CKD (chronic kidney disease) stage 2, GFR 60-89 ml/min, Clotting disorder ([facility]), Congenital heart disease, COPD (chronic obstructive pulmonary disease) ([facility]), Depression, Emphysema of lung (HCC), GERD (gastroesophageal reflux disease), GERD (gastroesophageal reflux disease), Gout, Headache(784.0), Hernia, Hernia, History of blood clots, History of DVT (deep vein thrombosis), Hyperlipidemia, Insomnia, Irritable bowel syndrome, Kidney stones, Lumbar degenerative disc disease, Lumbar radiculopathy, Obesity, PAM (obstructive sleep apnea), Parkinson disease, Parkinson's disease, Post traumatic stress disorder, Renal disease, Rheumatoid arthritis ([facility]), Stroke ([facility]), Stroke risk, Tracheostomy in place ([facility]), Tremors of nervous system, Type [...] Labs 12/05/23 0756 12/05/23 1210 12/05/23 1716 12/05/235 12/06/23 0742 12/06/23 1259 POCGLU 131* 189* 137* 160* 119* 176* ABG: Lab Results Component Value Date/Time PH 7.413 08/22/2011 03:20 PM PCO2 41.5 08/22/2011 03:20 PM PO2ART 92.5 08/22/2011 03:20 PM [id number] 26.0 08/22/2011 03:20 PM NBEA NOT REPORTED 08/22/2011 03:20 PM PBEA 1.8 08/22/2011 03:20 PM [id number] 95.6 08/22/2011 03:20 PM FIO2 INFORMATION NOT PROVIDED 11/30/2023 12:05 AM Lab Results Component Value Date/Time SPECIAL NOT REPORTED 10/20/2012 10:15 AM SPECIAL NOT REPORTED 10/20/2012 10:15 AM Lab Results Component Value Date/Time CULTURE NO GROWTH 10/20/2012 10:15 AM CULTURE 10/20/2012 10:15 AM Performed at [facility] [address] [address] Radiology: XR CHEST (2 VW) Result Date: [...] Chronic kidney disease (CKD), stage III (moderate) ([facility]) 11/30/2023 Yes Generalized weakness 12/02/2023 Yes CHF (congestive heart failure) ([facility]) 11/30/2023 Yes Uncontrolled hypertension 11/30/2023 [...] Chronic kidney disease (CKD), stage III (moderate) ([facility]) Generalized weakness CHF (congestive heart failure) ([facility]) Uncontrolled hypertension Dysphagia GERD (gastroesophageal [...] 2 units and then adjust accordingly Recurrent SDCt-HOJc-noqiyd neurology plan History of prothrombin gene mutation with prior DVT-continue Coumadin CKD stage III-continue to monitor creatinine and will need follow-up with nephrology/PCP PAM on CPAP Discharge planning after the above workup Lori Leblanc MD 12/06/2023 1:56 PM Pharmacy Note Warfarin Consult follow-up Warfarin dose prior to admission: 17.5 mg Sun, 15 mg all other days (per medication management clinic in [place], last visit 11/11; clinic noted recent dose [...] other days (per medication management clinic in [place], last visit 11/11; clinic noted recent dose [...] inpatient. Nolan Mccarty PharmD, 12/05/2023 2:41 PM [facility] Speech Language Pathology [facility] Cognitive Treatment Note Date: 12/05/2023 Patient s Name: Andry Pierre Diagnosis: Patient Active Problem List Diagnosis Code COPD (chronic obstructive pulmonary disease) ([facility]) J44.9 PAM (obstructive sleep apnea) G47.33 Obesity, morbid ([facility]) E66.01 Lumbar degenerative disc disease M51.36 Lumbar radiculopathy M54.16 Lumbar facet arthropathy M47.816 Osteoarthritis of both knees M17.0 Diabetic neuropathy ([facility]) E11.40 Morbid obesity ([facility]) E66.01 Sleep apnea, obstructive G47.33 Encounter for medication monitoring Z51.81 Chronic kidney disease (CKD), stage III (moderate) ([facility]) N18.30 Hyperkalemia E87.5 Generalized weakness R53.1 Pill rolling tremor R25.1 Muscle cramps R25.2 Acute renal failure (ARF) ([facility]) N17.9 Type II or unspecified type diabetes mellitus without mention of complication, not stated as uncontrolled E11.9 Depression F32.A Irritable bowel syndrome K58.9 Obesity E66.9 CHF (congestive heart failure) ([facility]) I50.9 Parkinson disease G20.A1 Tremors of nervous system R25.[address] ([facility]) Z93.0 Bilateral lower extremity edema R60.0 CKD (chronic kidney disease) N18.9 Uncontrolled hypertension I10 Dysphagia R13.10 Hyperlipidemia E78.5 History of DVT (deep vein thrombosis) Z86.718 Congenital heart disease Q24.9 Emphysema of lung (HCC) J43.9 Hernia K46.9 Stroke risk Z91.89 GERD (gastroesophageal reflux disease) K21.9 Asthma J45.909 Renal disease N28.9 Gout M10.9 S/P deep brain stimulator placement Z96.89 Parkinsons G20.A1 CKD (chronic kidney disease) stage 2, GFR 60-89 ml/min N18.2 Type II or unspecified type diabetes mellitus with renal manifestations, not stated as uncontrolled(250.40) E11.29 Encounter for chronic pain management G89.29 Weight loss, intentional [id number] 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 Primary osteoarthritis of both knees M17.0 DM type 2 with diabetic peripheral neuropathy ([facility]) E11.42 Need for immunization against influenza Z23 Morbid obesity due to excess calories ([facility]) E66.01 Diabetic mononeuropathy associated with diabetes mellitus due to underlying condition ([facility]) E08.41 AMS (altered mental status) [...] phonemic cues Problem Solving/Reasoning: Comparing sentence content: 8 despite given max verbal cues Inferences about paragraphs: 03/14 independently Multiple definitions: 10/10 independently Other: Pt. Stated mental exhaustion following [...] recommended at discharge. Completed by Tess Robert Paper Testing Supervisor Clinician Co-signed by Jodi Rivera M.A.CCC/VALET PARKER Occupational Therapy Facility/Department: [address] [facility] Occupational Therapy Daily Treatment Note Name: Andry Pierre : 1960 Date of Service: 12/05/2023 Discharge Recommendations: Patient would benefit from continued therapy after discharge OT Equipment Recommendations ADL Assistive Devices: Shower Chair with back Other: weighted utensils Patient Diagnosis(es): There were no encounter diagnoses. Past Medical History: has a past medical history of Arthritis, Asthma, CHF (congestive heart failure) ([facility]), CKD (chronic kidney disease) stage 2, GFR 60-89 ml/min, Clotting disorder ([facility]), Congenital heart disease, COPD (chronic obstructive pulmonary disease) ([facility]), Depression, Emphysema of lung ([facility]), GERD (gastroesophageal reflux disease), GERD (gastroesophageal reflux disease), Gout, Headache(784.0), Hernia, Hernia, History of blood clots, History of DVT (deep vein thrombosis), Hyperlipidemia, Insomnia, Irritable bowel syndrome, Kidney stones, Lumbar degenerative disc disease, Lumbar radiculopathy, Obesity, PAM (obstructive sleep apnea), Parkinson disease, Parkinson's disease, Post traumatic stress disorder, Renal disease, Rheumatoid arthritis ([facility]), Stroke ([facility]), Stroke risk, Tracheostomy in place ([facility]), Tremors of nervous system, Type [...] bears weight in BUEs on RW to 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 [facility] Office: [phone] Alberto Rice DO, Luciano Murphy DO, Humza [...] MD, Da Moore MD, Geneva Casiano MD, Mathtew Perez DO, Tk Connor DO, Jess Parker MD, Garett Valentine MD, Rosalia Mobley CNP, Criss Gray CNP, Lefty Matute CNP, Brittny Quinones DNP, Kacey Meeks CNP, Sugey Barillas, SHERYL, Mary Jo Bonner CNP, Jodi Granados CNP, Sigrid Velásquez CNP, Janine Turpin, PA-C, KATHRIN MercedesC, Savi Iqbal, CORRECTIONAL THERAPY DIRECTOR, Beckie Mello, CORRECTIONAL THERAPY DIRECTOR, Nora Mace, CORRECTIONAL THERAPY DIRECTOR, Jyoti Rojo, BENCH MECHANIC, Ronda Sellers, SHERYL, Janell Hoyt, CORRECTIONAL THERAPY DIRECTOR, Caryl Gonzalez, CORRECTIONAL THERAPY DIRECTOR [facility] IN-PATIENT SERVICE [facility] Progress Note 12/05/2023 8:58 AM Name: Andry Pierre Acct: [id number] Room: [address] [place] [address] IP Day: 6 Admit Date: 11/29/2023 8:06 [...] brain stimulator 10/2008 who initially presented to [facility] 11/24 s/p fall in bathroom with acute left hip/upper thigh and back pain (hit head, no LOC) presents with No chief complaint on file. and is admitted to the hospital for the management of AMS (altered mental status). Patient transferred from [facility] after undergoing tilt table evaluation for concern for orthostasis on 11/28/2022 with history of recurrent episodes of dizziness with history of stroke, complicated history. tilt table test complicated by worsening acute symptoms of dizziness with chest pain with altered sensorium. Although tilt test unremarkable for orthostasis, patient was evaluated in ED with acute symptoms and recommended admission pending transfer to [facility] for neurology evaluation. Unfortunately with bed [...] with occasional shortness of breath While in [facility] ED patient did develop symptomatic hypoglycemia with blood sugars in the 50s with symptoms of feeling funny . 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 Subsequently returned status post fall 11/24 with [...] of Arthritis, Asthma, CHF (congestive heart failure) ([facility]), CKD (chronic kidney disease) stage 2, GFR 60-89 ml/min, Clotting disorder ([facility]), Congenital heart disease, COPD (chronic obstructive pulmonary disease) ([facility]), Depression, Emphysema of lung ([facility]), GERD (gastroesophageal reflux disease), GERD (gastroesophageal reflux disease), Gout, Headache(784.0), Hernia, Hernia, History of blood clots, History of DVT (deep vein thrombosis), Hyperlipidemia, Insomnia, Irritable bowel syndrome, Kidney stones, Lumbar degenerative disc disease, Lumbar radiculopathy, Obesity, PAM (obstructive sleep apnea), Parkinson disease, Parkinson's disease, Post traumatic stress disorder, Renal disease, Rheumatoid arthritis ([facility]), Stroke ([facility]), Stroke risk, Tracheostomy in place ([facility]), Tremors of nervous system, Type [...] 03:20 PM PO2ART 92.5 08/22/2011 03:20 PM [id number] 26.0 08/22/2011 03:20 PM NBEA NOT REPORTED 08/22/2011 03:20 PM PBEA 1.8 08/22/2011 03:20 PM [id number] 95.6 08/22/2011 03:20 PM FIO2 INFORMATION NOT PROVIDED 11/30/2023 12:05 AM Lab Results Component Value Date/Time SPECIAL NOT REPORTED 10/20/2012 10:15 AM SPECIAL NOT REPORTED 10/20/2012 10:15 AM Lab Results Component Value Date/Time CULTURE NO GROWTH 10/20/2012 10:15 AM CULTURE 10/20/2012 10:15 AM Performed at [address] [address] Radiology: XR CHEST (2 VW) [...] Chronic kidney disease (CKD), stage III (moderate) ([facility]) 11/30/2023 Yes Generalized weakness 12/02/2023 Yes CHF (congestive heart failure) ([facility]) 11/30/2023 Yes Uncontrolled hypertension 11/30/2023 [...] Chronic kidney disease (CKD), stage III (moderate) ([facility]) Generalized weakness CHF (congestive heart failure) ([facility]) Uncontrolled hypertension Dysphagia GERD (gastroesophageal [...] 2 units and then adjust accordingly Recurrent [id number] neurology plan History of prothrombin gene mutation with prior DVT-continue Coumadin CKD stage III-continue to monitor creatinine and will need follow-up with nephrology/PCP PAM on CPAP Discharge planning after the above workup Lori Leblanc MD 12/05/2023 8:58 AM Images from the original note were not included. [facility] Office: [phone] Alberto Rice DO, Luciano Murphy DO, Humza [...] Matthew Perez DO, Tk Connor DO, Jess Parkre MD, Garett Valentine MD, Rosalia Mobley CNP, Criss Gray CNP, Lefty Matute CNP, Brittny Quinones, COLTON, Kacey Meeks, CORRECTIONAL THERAPY DIRECTOR, Sugey Barillas, CORRECTIONAL THERAPY DIRECTOR, Mary Jo Bonner, CORRECTIONAL THERAPY DIRECTOR, Jodi Granados, CORRECTIONAL THERAPY DIRECTOR, Sigrid Velásquez, CORRECTIONAL THERAPY DIRECTOR, Janine Turpin, PARolfC, Sue Willams, KATHRINC, Savi Iqbal, CORRECTIONAL THERAPY DIRECTOR, Beckie Mello, CORRECTIONAL THERAPY DIRECTOR, Nora Mace, CORRECTIONAL THERAPY DIRECTOR, Jyoti Rojo, BENCH MECHANIC, Ronda Sellers, CORRECTIONAL THERAPY DIRECTOR, Janell Hoyt, CORRECTIONAL THERAPY DIRECTOR, Caryl Gonzalez, CORRECTIONAL THERAPY DIRECTOR [facility] IN-PATIENT SERVICE [facility] Progress Note 12/04/2023 2:59 PM Name: Andry Pierre Acct: [id number] Room: [address] [place] [address] IP Day: 5 Admit Date: 11/29/2023 8:06 [...] brain stimulator 10/2008 who initially presented to [facility] 11/24 s/p fall in bathroom with acute left hip/upper thigh and back pain (hit head, no LOC) presents with No chief complaint on file. and is admitted to the hospital for the management of AMS (altered mental status). Patient transferred from [facility] after undergoing tilt table evaluation for concern for orthostasis on 11/28/2022 with history of recurrent episodes of dizziness with history of stroke, complicated history. tilt table test complicated by worsening acute symptoms of dizziness with chest pain with altered sensorium. Although tilt test unremarkable for orthostasis, patient was evaluated in ED with acute symptoms and recommended admission pending transfer to [facility] for neurology evaluation. Unfortunately with bed [...] with occasional shortness of breath While in [facility] ED patient did develop symptomatic hypoglycemia with blood sugars in the 50s with symptoms of feeling funny . 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 Subsequently returned status post fall 11/24 with [...] of Arthritis, Asthma, CHF (congestive heart failure) ([facility]), CKD (chronic kidney disease) stage 2, GFR 60-89 ml/min, Clotting disorder ([facility]), Congenital heart disease, COPD (chronic obstructive pulmonary disease) ([facility]), Depression, Emphysema of lung ([facility]), GERD (gastroesophageal reflux disease), GERD (gastroesophageal reflux disease), Gout, Headache(784.0), Hernia, Hernia, History of blood clots, History of DVT (deep vein thrombosis), Hyperlipidemia, Insomnia, Irritable bowel syndrome, Kidney stones, Lumbar degenerative disc disease, Lumbar radiculopathy, Obesity, PAM (obstructive sleep apnea), Parkinson disease, Parkinson's disease, Post traumatic stress disorder, Renal disease, Rheumatoid arthritis ([facility]), Stroke ([facility]), Stroke risk, Tracheostomy in place ([facility]), Tremors of nervous system, Type [...] 03:20 PM PO2ART 92.5 08/22/2011 03:20 PM [id number] 26.0 08/22/2011 03:20 PM NBEA NOT REPORTED 08/22/2011 03:20 PM PBEA 1.8 08/22/2011 03:20 PM [id number] 95.6 08/22/2011 03:20 PM FIO2 INFORMATION NOT PROVIDED 11/30/2023 12:05 AM Lab Results Component Value Date/Time SPECIAL NOT REPORTED 10/20/2012 10:15 AM SPECIAL NOT REPORTED 10/20/2012 10:15 AM Lab Results Component Value Date/Time CULTURE NO GROWTH 10/20/2012 10:15 AM CULTURE 10/20/2012 10:15 AM Performed at [facility] [address] [place], [place] [id number] Radiology: XR CHEST (2 VW) Result Date: [...] 2 units and then adjust accordingly Recurrent [id number] neurology plan History of prothrombin gene mutation [...] Progress Note PATIENT: ANDRY PIERRE CSN #: [id number] : 1960 ADMIT DATE: 11/29/2023 8:06 PM [...] Thank You Torsten LEES BSN CCDS Email [email or web address] office hours M-F 6am to 2:30p Options [...] Diagnosis Code COPD (chronic obstructive pulmonary disease) ([facility]) J44.9 PAM (obstructive sleep apnea) G47.33 Obesity, morbid ([facility]) E66.01 Lumbar degenerative disc disease M51.36 Lumbar radiculopathy M54.16 Lumbar facet arthropathy M47.816 Osteoarthritis of both knees M17.0 Diabetic neuropathy ([facility]) E11.40 Morbid obesity ([facility]) E66.01 Sleep apnea, obstructive G47.33 Encounter for medication monitoring Z51.81 Chronic kidney disease (CKD), stage III (moderate) ([facility]) N18.30 Hyperkalemia E87.5 Generalized weakness R53.1 Pill rolling tremor R25.1 Muscle cramps R25.2 Acute renal failure (ARF) ([facility]) N17.9 Type II or unspecified type diabetes mellitus without mention of complication, not stated as uncontrolled E11.9 Depression F32.A Irritable bowel syndrome K58.9 Obesity E66.9 CHF (congestive heart failure) ([facility]) I50.9 Parkinson disease G20.A1 Tremors of nervous system R25.[address] ([facility]) Z93.0 Bilateral lower extremity edema R60.0 CKD (chronic kidney disease) N18.9 Uncontrolled hypertension I10 Dysphagia R13.10 Hyperlipidemia E78.5 History of DVT (deep vein thrombosis) Z86.718 Congenital heart disease Q24.9 Emphysema of lung ([facility]) J43.9 Hernia K46.9 Stroke risk Z91.89 GERD (gastroesophageal reflux disease) K21.9 Asthma J45.909 Renal disease N28.9 Gout M10.9 S/P deep brain stimulator placement Z96.89 Parkinsons G20.A1 CKD (chronic kidney disease) stage 2, GFR 60-89 ml/min N18.2 Type II or unspecified type diabetes mellitus with renal manifestations, not stated as uncontrolled(250.40) E11.29 Encounter for chronic pain management G89.29 Weight loss, intentional [id number] 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 Primary osteoarthritis of both knees M17.0 DM type 2 with diabetic peripheral neuropathy ([facility]) E11.42 Need for immunization against influenza Z23 Morbid obesity due to excess calories ([facility]) E66.01 Diabetic mononeuropathy associated with diabetes mellitus due to underlying condition ([facility]) E08.41 AMS (altered mental status) R41.82 Altered mental status R41.82 Multiple falls R29.6 Essential tremor G25.0 Syncope and collapse R55 Staring episodes R40.4 Altered awareness, transient R40.4 Acute encephalopathy G93.40 Neuropathy G62.9 Pain: Patient did not complain of any pain. Cognitive Treatment Treatment time: [id number] Subjective: [x] Alert [x] Cooperative [] Confused [...] at discharge. Treatment completed by: Jimmy Alva, Paper Testing Supervisor Clinician Pharmacy Note Warfarin Consult follow-up Warfarin dose prior to admission: 17.5 mg Sun, 15 mg all other days (per medication management clinic in [place], last visit 11/11; clinic noted recent dose [...] sent to the ED. Ultimately transferred to [facility]. Neurology was consulted for encephalopathy. Patient's [...] been seen by neuromuscular neurology at [facility] on 11/06/2023 with noted essential [...] ANTHONY U/F 32G X 4 MM [facility] [place]PA[place] PLUS strip 0 Allergies: Anrdy Pierre is allergic to beta adrenergic blockers, hydralazine, neuromuscular blocking agents [neuromuscular blocking agents], neurontin [gabapentin], valium, and other. Past Medical History: Diagnosis Date Arthritis Asthma CHF (congestive heart failure) ([facility]) CKD (chronic kidney disease) stage 2, GFR 60-89 ml/min 02/16/2014 Clotting disorder ([facility]) Congenital heart disease COPD (chronic obstructive pulmonary disease) ([facility]) Depression Emphysema of lung ([facility]) GERD (gastroesophageal reflux disease) GERD (gastroesophageal reflux disease) Gout Headache(784.0) Hernia Hernia History of blood clots History of DVT (deep vein thrombosis) Hyperlipidemia Insomnia Irritable bowel syndrome Kidney stones Lumbar degenerative disc disease 01/25/2014 Lumbar radiculopathy 01/25/2014 Obesity PAM (obstructive sleep apnea) 11/16/2013 Parkinson disease Parkinson's disease Post traumatic stress disorder Renal disease Rheumatoid arthritis ([facility]) Stroke ([facility]) 2018 Stroke risk Tracheostomy in place ([facility]) 08/22/2011 Tremors of nervous system [...] polyp at GE junction UPPER GASTROINTESTINAL ENDOSCOPY 3/5/01549 chronic inflammation UVULOPALATOPHARYGOPLASTY Social History: Andry Pierre [...] INR 3.0 12/04/2023 LABA1C 8.8 (H) 11/25/2023 [id number] 11/30/2023 MG 2.7 (H) 11/30/2023 PHOS [...] is already scheduled through his PCP in [place]. Please note that this note was generated using a voice recognition dictation software. Although every effort was made to ensure the accuracy of this automated chocolate molder, some errors in chocolate molder may have occurred. Pharmacy Note Warfarin Consult follow-up Warfarin dose prior to admission: 17.5 mg Sun, 15 mg all other days (per medication management clinic in [place], last visit 11/11; clinic noted recent dose [...] dose changes Daily PT/INR while inpatient. Nolan Mccarty, PharmD, 12/03/2023 4:34 PM Physical Therapy Facility/Department: [address] [place] Physical Therapy Daily Treatment Note Name: Andry Pierre : 1960 Date of Service: 12/03/2023 Discharge Recommendations: Patient would benefit from continued therapy after discharge PT Equipment Recommendations Equipment Needed: No Patient Diagnosis(es): There were no encounter diagnoses. Past Medical History: has a past medical history of Arthritis, Asthma, CHF (congestive heart failure) ([facility]), CKD (chronic kidney disease) stage 2, GFR 60-89 ml/min, Clotting disorder ([facility]), Congenital heart disease, COPD (chronic obstructive pulmonary disease) ([facility]), Depression, Emphysema of lung ([facility]), GERD (gastroesophageal reflux disease), GERD (gastroesophageal reflux disease), Gout, Headache(784.0), Hernia, Hernia, History of blood clots, History of DVT (deep vein thrombosis), Hyperlipidemia, Insomnia, Irritable bowel syndrome, Kidney stones, Lumbar degenerative disc disease, Lumbar radiculopathy, Obesity, PAM (obstructive sleep apnea), Parkinson disease, Parkinson's disease, Post traumatic stress disorder, Renal disease, Rheumatoid arthritis ([facility]), Stroke ([facility]), Stroke risk, Tracheostomy in place ([facility]), Tremors of nervous system, Type [...] Comments: pt sitting in bedside chair upon abstract writer entering room. 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 Reps: 10 OutComes Score AM-[facility] - Mobility [facility] Basic Mobility - Inpatient How much [...] 3-5 steps with a railing?: A Lot [facility] Inpatient Mobility Raw Score : 17 [facility] Inpatient T-Scale Score : 42.13 Mobility [...] task. Letty Lemon PTA Occupational Therapy Facility/Department: [address] [place] Occupational Therapy Daily Treatment Note Name: Andry Pierre : 1960 Date of Service: 12/03/2023 Discharge Recommendations: Patient would benefit from continued therapy after discharge OT Equipment Recommendations ADL Assistive Devices: Shower Chair with back Other: weighted utensils Patient Diagnosis(es): There were no encounter diagnoses. Past Medical History: has a past medical history of Arthritis, Asthma, CHF (congestive heart failure) ([facility]), CKD (chronic kidney disease) stage 2, GFR 60-89 ml/min, Clotting disorder ([facility]), Congenital heart disease, COPD (chronic obstructive pulmonary disease) ([facility]), Depression, Emphysema of lung ([facility]), GERD (gastroesophageal reflux disease), GERD [...] of arm rests. 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 [employer] Office: [phone] Alberto Rice DO, Luciano Murphy DO, Humza James, DO, Jc Maria, DO, Nancy Paz MD, Naz Cruz MD, [...] Parker MD, Garett Valentine MD, Rosalia Mobley, CORRECTIONAL THERAPY DIRECTOR, Criss Gray, CORRECTIONAL THERAPY DIRECTOR, Lefty Matute, CORRECTIONAL THERAPY DIRECTOR, Brittny Quinones, DNP, Kacey Meeks, CORRECTIONAL THERAPY DIRECTOR, Sugey Barillas, CORRECTIONAL THERAPY DIRECTOR, Mary Jo Bonner, CORRECTIONAL THERAPY DIRECTOR, Jodi Granados, CORRECTIONAL THERAPY DIRECTOR, Sigrid Velásquez, CORRECTIONAL THERAPY DIRECTOR, Janine Turpin, PA-C, Sue Willams PA-C, Savi Iqbal, CORRECTIONAL THERAPY DIRECTOR, Beckie Mello, CORRECTIONAL THERAPY DIRECTOR, Nora Mace, CORRECTIONAL THERAPY DIRECTOR, Jyoti Rojo, BENCH MECHANIC, Ronda Sellers, CORRECTIONAL THERAPY DIRECTOR, Janell Hoyt, CORRECTIONAL THERAPY DIRECTOR, Caryl Gonzalez, CORRECTIONAL THERAPY DIRECTOR [facility] IN-PATIENT SERVICE [facility] Progress Note 12/03/2023 12:01 PM Name: Andry Pierre Acct: [id number] Room: [id number] Day: 4 Admit Date: 11/29/2023 [...] brain stimulator 10/2008 who initially presented to [facility] 11/24 s/p fall in bathroom with acute left hip/upper thigh and back pain (hit head, no LOC) presents with No chief complaint on file. and is admitted to the hospital for the management of AMS (altered mental status). Patient transferred from [facility] after undergoing tilt table evaluation for concern for orthostasis on 11/28/2022 with history of recurrent episodes of dizziness with history of stroke, complicated history. tilt table test complicated by worsening acute symptoms of dizziness with chest pain with altered sensorium. Although tilt test unremarkable for orthostasis, patient was evaluated in ED with acute symptoms and recommended admission pending transfer to [facility] for neurology evaluation. Unfortunately with bed [...] with occasional shortness of breath While in [facility] ED patient did develop symptomatic hypoglycemia with blood sugars in the 50s with symptoms of feeling funny . 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 Subsequently returned status post fall/19 with worsening back pain, weakness with atypical [...] of Arthritis, Asthma, CHF (congestive heart failure) ([facility]), CKD (chronic kidney disease) stage 2, GFR 60-89 ml/min, Clotting disorder ([facility]), Congenital heart disease, COPD (chronic obstructive pulmonary disease) ([facility]), Depression, Emphysema of lung ([facility]), GERD (gastroesophageal reflux disease), GERD (gastroesophageal reflux disease), Gout, Headache(784.0), Hernia, Hernia, History of blood clots, History of DVT (deep vein thrombosis), Hyperlipidemia, Insomnia, Irritable bowel syndrome, Kidney stones, Lumbar degenerative disc disease, Lumbar radiculopathy, Obesity, PAM (obstructive sleep apnea), Parkinson disease, Parkinson's disease, Post traumatic stress disorder, Renal disease, Rheumatoid arthritis ([facility]), Stroke ([facility]), Stroke risk, Tracheostomy in place ([facility]), Tremors of nervous system, Type [...] 03:20 PM PO2ART 92.5 08/22/2011 03:20 PM LWY4UEA 26.0 08/22/2011 03:20 PM NBEA NOT REPORTED 08/22/2011 03:20 PM PBEA 1.8 08/22/2011 03:20 PM [id number] 95.6 08/22/2011 03:20 PM FIO2 INFORMATION NOT PROVIDED 11/30/2023 12:05 AM Lab Results Component Value Date/Time SPECIAL NOT REPORTED 10/20/2012 10:15 AM SPECIAL NOT REPORTED 10/20/2012 10:15 AM Lab Results Component Value Date/Time CULTURE NO GROWTH 10/20/2012 10:15 AM CULTURE 10/20/2012 10:15 AM Performed at [address] [address] Radiology: XR CHEST (2 VW) [...] (HCC) Generalized weakness CHF (congestive heart failure) ([facility]) Uncontrolled hypertension Dysphagia GERD (gastroesophageal [...] 2 units and then adjust accordingly Recurrent QWEy-MJAe-fhxdhw neurology plan History of prothrombin gene mutation with prior DVT-continue Coumadin CKD stage III-continue to monitor creatinine and will need follow-up with nephrology/PCP PAM on CPAP Discharge planning after the above workup Lori Leblanc MD 12/03/2023 12:01 PM Physician Progress Note PATIENT: ANDRY PIERRE CSN #: [id number] : 1960 ADMIT DATE: 11/29/2023 8:06 PM [...] Thank You Torsten LEES BSN CCDS Email [email or web address] office hours M-F 6am to 2:30p Options [...] sent to the ED. Ultimately transferred to [facility]. Neurology was consulted for encephalopathy. Patient's [...] been seen by neuromuscular neurology [facility] on 11/06/2023 with noted essential [...] ANTHONY U/F 32G X 4 MM [facility] ACCU-CHEK COMPACT PLUS strip 0 Allergies: Andry Pierre is allergic to beta adrenergic blockers, hydralazine, neuromuscular blocking agents [neuromuscular blocking agents], neurontin [gabapentin], valium, and other. Past Medical History: Diagnosis Date Arthritis Asthma CHF (congestive heart failure) ([facility]) CKD (chronic kidney disease) stage 2, GFR 60-89 ml/min 02/16/2014 Clotting disorder ([facility]) Congenital heart disease COPD (chronic obstructive pulmonary disease) ([facility]) Depression Emphysema of lung ([facility]) GERD (gastroesophageal reflux disease) GERD [...] INR 3.3 12/03/2023 LABA1C 8.8 (H) 11/25/2023 [id number] 11/30/2023 MG 2.7 (H) 11/30/2023 PHOS [...] is already scheduled through his PCP in [place]. Please note that this note was generated using a voice recognition dictation software. Although every effort was made to ensure the accuracy of this automated chocolate molder, some errors in chocolate molder may have occurred. Associated attestation - Krystian Colvin MD - 12/03/2023 9:03 PM EST Attending Physician Statement I have discussed the case of Andry Pierre including pertinent history and exam findings with the resident/ CORRECTIONAL THERAPY DIRECTOR. I reviewed medications, clinical labs, x-rays and other diagnostic tests with the resident/ CORRECTIONAL THERAPY DIRECTOR. I have seen and examined the patient [...] not tolerate those. He has been having hkvn-dhv-occmher in lower legs and feet and also [...] from the original note were not included. [facility] Office: [phone] Alberto Rice DO, Luciano Murphy DO, Humza [...] Quinones DNP, Kacey Meeks CNP, Sugey Barillas, CORRECTIONAL THERAPY DIRECTOR, Mary Jo Bonner, CORRECTIONAL THERAPY DIRECTOR, Jodi Granados, CORRECTIONAL THERAPY DIRECTOR, Sigrid Velásquez, CORRECTIONAL THERAPY DIRECTOR, Janine Turpin, KATHRINC, KATHRIN MercedesC, Savi Iqbal, CORRECTIONAL THERAPY DIRECTOR, Beckie Mello, CORRECTIONAL THERAPY DIRECTOR, Nora Mace, CORRECTIONAL THERAPY DIRECTOR, Jyoti Rojo, BENCH MECHANIC, Ronda Sellers, CORRECTIONAL THERAPY DIRECTOR, Janell Hoyt, CORRECTIONAL THERAPY DIRECTOR, Caryl Gonzalez, CORRECTIONAL THERAPY DIRECTOR [facility] IN-PATIENT SERVICE [facility] Progress Note 12/02/2023 3:11 PM Name: Andry Pierre Acct: [id number] Room: [facility]30143-01 IP Day: 3 Admit Date: 11/29/2023 8:06 PM [...] back to home dose Pending Placement to [place] Brief History: Per documentation Andry Pierre is a 63 y.o. male with history of prior CVAs (with h/o expressive aphasia, dysphasia), h/o seizures, DM 2, HFpEF, CKD 3, chronic thrombophila w/ +prothrombin gene mutation s/p DVT/PE 01/2023, nonobst CAD (s/p cath 2019), asthma/COPD with PAM with history of Parkinsons vs MG s/p deep brain stimulator 10/2008 who initially presented to [facility] 11/24 s/p fall in bathroom with acute left hip/upper thigh and back pain (hit head, no LOC) presents with No chief complaint on file. and is admitted to the hospital for the management of AMS (altered mental status). Patient transferred from [facility] after undergoing tilt table evaluation for concern for orthostasis on 11/28/2022 with history of recurrent episodes of dizziness with history of stroke, complicated history. tilt table test complicated by worsening acute symptoms of dizziness with chest pain with altered sensorium. Although tilt test unremarkable for orthostasis, patient was evaluated in ED with acute symptoms and recommended admission pending transfer to [facility] for neurology evaluation. Unfortunately with bed [...] with occasional shortness of breath While in [facility] ED patient did develop symptomatic hypoglycemia with blood sugars in the 50s with symptoms of feeling funny . 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 Subsequently returned status post 11/24 with worsening [...] of Arthritis, Asthma, CHF (congestive heart failure) ([facility]), CKD (chronic kidney disease) stage 2, GFR 60-89 ml/min, Clotting disorder ([facility]), Congenital heart disease, COPD (chronic obstructive pulmonary disease) ([facility]), Depression, Emphysema of lung ([facility]), GERD (gastroesophageal reflux disease), GERD (gastroesophageal reflux disease), Gout, Headache(784.0), Hernia, Hernia, History of blood clots, History of DVT (deep vein thrombosis), Hyperlipidemia, Insomnia, Irritable bowel syndrome, Kidney stones, Lumbar degenerative disc disease, Lumbar radiculopathy, Obesity, PAM (obstructive sleep apnea), Parkinson disease, Parkinson's disease, Post traumatic stress disorder, Renal disease, Rheumatoid arthritis ([facility]), Stroke ([facility]), Stroke risk, Tracheostomy in place ([facility]), Tremors of nervous system, Type [...] 03:20 PM PO2ART 92.5 08/22/2011 03:20 PM [id number] 26.0 08/22/2011 03:20 PM NBEA NOT REPORTED 08/22/2011 03:20 PM PBEA 1.8 08/22/2011 03:20 PM [id number] 95.6 08/22/2011 03:20 PM FIO2 INFORMATION NOT PROVIDED 11/30/2023 12:05 AM Lab Results Component Value Date/Time SPECIAL NOT REPORTED 10/20/2012 10:15 AM SPECIAL NOT REPORTED 10/20/2012 10:15 AM Lab Results Component Value Date/Time CULTURE NO GROWTH 10/20/2012 10:15 AM CULTURE 10/20/2012 10:15 AM Performed at [facility] [id number] Radiology: XR CHEST (2 VW) Result Date: [...] Overview Signed 01/25/2014 12:25 PM by Servando iDego MD S/p Tracheotomy Syncope and collapse 12/01/2023 Yes Chronic kidney disease (CKD), stage III (moderate) ([facility]) 11/30/2023 Yes CHF (congestive heart failure) ([facility]) 11/30/2023 Yes Uncontrolled hypertension 11/30/2023 [...] III (moderate) (HCC) CHF (congestive heart failure) ([facility]) Uncontrolled hypertension Dysphagia GERD (gastroesophageal [...] 2 units and then adjust accordingly Recurrent RKKz-ZNVs-aqqmss neurology plan History of prothrombin gene mutation with prior DVT-continue Coumadin CKD stage III-continue to monitor creatinine and will need follow-up with nephrology/PCP PAM on CPAP Discharge planning after the above workup Lori Leblanc MD 12/02/2023 3:11 PM [facility] Speech Language Pathology [facility] Note Date: 12/02/2023 Patient s Name: Andry Pierre Diagnosis: Patient Active Problem List Diagnosis Code COPD (chronic obstructive pulmonary disease) ([facility]) J44.9 PAM (obstructive sleep apnea) G47.33 Obesity, morbid ([facility]) E66.01 Lumbar degenerative disc disease M51.36 Lumbar radiculopathy M54.16 Lumbar facet arthropathy M47.816 Osteoarthritis of both knees M17.0 Diabetic neuropathy ([facility]) E11.40 Morbid obesity ([facility]) E66.01 Sleep apnea, obstructive G47.33 Encounter for medication monitoring Z51.81 Chronic kidney disease (CKD), stage III (moderate) ([facility]) N18.30 Hyperkalemia E87.5 Fatigue R53.83 Pill rolling tremor R25.1 Muscle cramps R25.2 Acute renal failure (ARF) ([facility]) N17.9 Type II or unspecified type diabetes mellitus without mention of complication, not stated as uncontrolled E11.9 Depression F32.A Irritable bowel syndrome K58.9 Obesity E66.9 CHF (congestive heart failure) ([facility]) I50.9 Parkinson disease G20.A1 Tremors of nervous system R25.[address] ([facility]) Z93.0 Bilateral lower extremity edema R60.0 CKD (chronic kidney disease) N18.9 Uncontrolled hypertension I10 Dysphagia R13.10 Hyperlipidemia E78.5 History of DVT (deep vein thrombosis) Z86.718 Congenital heart disease Q24.9 Emphysema of lung ([facility]) J43.9 Hernia K46.9 Stroke risk Z91.89 GERD (gastroesophageal reflux disease) K21.9 Asthma J45.909 Renal disease N28.9 Gout M10.9 S/P deep brain stimulator placement Z96.89 Parkinsons G20.A1 CKD (chronic kidney disease) stage 2, GFR 60-89 ml/min N18.2 Type II or unspecified type diabetes mellitus with renal manifestations, not stated as uncontrolled(250.40) E11.29 Encounter for chronic pain management G89.29 Weight loss, intentional [id number] 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 Primary osteoarthritis of both knees M17.0 DM type 2 with diabetic peripheral neuropathy ([facility]) E11.42 Need for immunization against influenza Z23 Morbid obesity due to excess calories ([facility]) E66.01 Diabetic mononeuropathy associated with diabetes mellitus due to underlying condition ([facility]) E08.41 AMS (altered mental status) [...] and visual cues Picture retention (pet store): 10 independently. Given 30 sec to study picture [...] recommended at discharge. Completed by Tess Robert Paper Testing Supervisor Clinician Co-signed by Sonja Madera M.S. CCC/[facility] Pharmacy Note Warfarin Consult follow-up Warfarin dose prior to admission: 17.5 mg Sun, 15 mg all other days (per medication management clinic in [place], last visit 11/11; clinic noted recent dose [...] status) [R41.82] Altered mental status [R41.82] Mr Anrdy Pierre is a 63-year-old male with severe [...] ANTHONY U/F 32G X 4 MM [facility] [place]U-[place]K COMPACT PLUS strip 0 Allergies: Andry Magallanes Lesly is allergic to beta adrenergic blockers, hydralazine, neuromuscular blocking agents [neuromuscular blocking agents], neurontin [gabapentin], valium, and other. Past Medical History: Diagnosis Date Arthritis Asthma CHF (congestive heart failure) ([facility]) CKD (chronic kidney disease) stage 2, GFR 60-89 ml/min 02/16/2014 Clotting disorder ([facility]) Congenital heart disease COPD (chronic obstructive pulmonary disease) ([facility]) Depression Emphysema of lung ([facility]) GERD (gastroesophageal reflux disease) GERD (gastroesophageal reflux disease) Gout Headache(784.0) Hernia Hernia History of blood clots History of DVT (deep vein thrombosis) Hyperlipidemia Insomnia Irritable bowel syndrome Kidney stones Lumbar degenerative disc disease 01/25/2014 Lumbar radiculopathy 01/25/2014 Obesity PAM (obstructive sleep apnea) 11/16/2013 Parkinson disease Parkinson's disease Post traumatic stress disorder Renal disease Rheumatoid arthritis ([facility]) Stroke ([facility]) 2018 Stroke risk Tracheostomy in place ([facility]) 08/22/2011 Tremors of nervous system [...] INR 2.8 12/02/2023 LABA1C 8.8 (H) 11/25/2023 [id number] 11/30/2023 MG 2.7 (H) 11/30/2023 PHOS [...] meaning may be extrapolated by contextual derivation. [facility] Speech Language Pathology [facility] Note Date: 12/01/2023 Patient s Name: Andry Pierre Diagnosis: Patient Active Problem List Diagnosis Code COPD (chronic obstructive pulmonary disease) ([facility]) J44.9 PAM (obstructive sleep apnea) G47.33 Obesity, morbid ([facility]) E66.01 Lumbar degenerative disc disease M51.36 Lumbar radiculopathy M54.16 Lumbar facet arthropathy M47.816 Osteoarthritis of both knees M17.0 Diabetic neuropathy ([facility]) E11.40 Morbid obesity ([facility]) E66.01 Sleep apnea, obstructive G47.33 Encounter for medication monitoring Z51.81 Chronic kidney disease (CKD), stage III (moderate) ([facility]) N18.30 Hyperkalemia E87.5 Fatigue R53.83 Pill rolling tremor R25.1 Muscle cramps R25.2 Acute renal failure (ARF) ([facility]) N17.9 Type II or unspecified type diabetes mellitus without mention of complication, not stated as uncontrolled E11.9 Depression F32.A Irritable bowel syndrome K58.9 Obesity E66.9 CHF (congestive heart failure) ([facility]) I50.9 Parkinson disease G20.A1 Tremors of nervous system R25.[address] ([facility]) Z93.0 Bilateral lower extremity edema R60.0 CKD (chronic kidney disease) N18.9 Uncontrolled hypertension I10 Dysphagia R13.10 Hyperlipidemia E78.5 History of DVT (deep vein thrombosis) Z86.718 Congenital heart disease Q24.9 Emphysema of lung ([facility]) J43.9 Hernia K46.9 Stroke risk Z91.89 GERD (gastroesophageal reflux disease) K21.9 Asthma J45.909 Renal disease N28.9 Gout M10.9 S/P deep brain stimulator placement Z96.89 Parkinsons G20.A1 CKD (chronic kidney disease) stage 2, GFR 60-89 ml/min N18.2 Type II or unspecified type diabetes mellitus with renal manifestations, not stated as uncontrolled(250.40) E11.29 Encounter for chronic pain management G89.29 Weight loss, intentional [id number] 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 Completed by Tess Robert Paper Testing Supervisor Clinician Co-signed by Sonja Madera M.S., CCC/[facility] Pharmacy Note Warfarin Consult follow-up Warfarin dose prior to admission: 17.5 mg Sun, 15 mg all other days (per medication management clinic in [place], last visit 11/11; clinic noted recent dose [...] PharmD, 12/01/2023 1:02 PM Physical Therapy Facility/Department: [address] [place] Physical Therapy Initial Assessment Name: [...] brain stimulator 10/2008 who initially presented to [facility] 11/24 s/p fall in bathroom with [...] of Arthritis, Asthma, CHF (congestive heart failure) ([facility]), CKD (chronic kidney disease) stage 2, GFR 60-89 ml/min, Clotting disorder ([facility]), Congenital heart disease, COPD (chronic obstructive pulmonary disease) ([facility]), Depression, Emphysema of lung ([facility]), GERD (gastroesophageal reflux disease), GERD [...] Needs assistance Transfer Assistance: Needs assistance Active Polyethylene Bag Machine Operator: No Patient's Polyethylene Bag Machine Operator Info: riends from [employer]. does not drive Mode of Transportation: [...] of <10 inches is fall risk): Yes AM-[facility] Basic Mobility - Inpatient How much [...] 3-5 steps with a railing?: A Lot AM-[facility] Inpatient Mobility Raw Score : [address] [facility] Inpatient T-Scale Score : 42.13 Mobility Inpatient CMS 0-100% Score: 50.[address] [facility] G-Code Modifier : CK Goals Short Term [...] from the original note were not included. [facility] Office: [phone] Alberto Rice DO, Luciano Murphy DO, Humza [...] Sugey Barillas CNP, Mary Jo Bonner CNP, Jodi Granados CNP, Sigrid Velásquez CNP, KATHRIN McmillanC, KATHRIN MercedesC, Savi Iqbal, CORRECTIONAL THERAPY DIRECTOR, Beckie Mello, CORRECTIONAL THERAPY DIRECTOR, Nora Mace, CORRECTIONAL THERAPY DIRECTOR, Jyoti Rojo, ANICETO, Ronda Sellers CNP, Janell Hoyt, SHERYL, Caryl Gonzalez, CORRECTIONAL THERAPY DIRECTOR [facility] IN-PATIENT SERVICE [facility] Progress Note 12/01/2023 1:10 PM Name: Andry Pierre Acct: [id number] Room: [address] [place], [place] [address] Day: 2 Admit Date: 11/29/2023 8:06 PM [...] brain stimulator 10/2008 who initially presented to [facility] 11/24 s/p fall in bathroom with acute left hip/upper thigh and back pain (hit head, no LOC) presents with No chief complaint on file. and is admitted to the hospital for the management of AMS (altered mental status). Patient transferred from [facility] after undergoing tilt table evaluation for concern for orthostasis on 11/28/2022 with history of recurrent episodes of dizziness with history of stroke, complicated history. tilt table test complicated by worsening acute symptoms of dizziness with chest pain with altered sensorium. Although tilt test unremarkable for orthostasis, patient was evaluated in ED with acute symptoms and recommended admission pending transfer to [facility] for neurology evaluation. Unfortunately with bed [...] with occasional shortness of breath While in [facility] ED patient did develop symptomatic hypoglycemia with blood sugars in the 50s with symptoms of feeling funny . 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 Subsequently returned status post fall 11/24 with [...] of Arthritis, Asthma, CHF (congestive heart failure) ([facility]), CKD (chronic kidney disease) stage 2, GFR 60-89 ml/min, Clotting disorder ([facility]), Congenital heart disease, COPD (chronic obstructive pulmonary disease) ([facility]), Depression, Emphysema of lung ([facility]), GERD (gastroesophageal reflux disease), GERD (gastroesophageal reflux disease), Gout, Headache(784.0), Hernia, Hernia, History of blood clots, History of DVT (deep vein thrombosis), Hyperlipidemia, Insomnia, Irritable bowel syndrome, Kidney stones, Lumbar degenerative disc disease, Lumbar radiculopathy, Obesity, PAM (obstructive sleep apnea), Parkinson disease, Parkinson's disease, Post traumatic stress disorder, Renal disease, Rheumatoid arthritis ([facility]), Stroke ([facility]), Stroke risk, Tracheostomy in place ([facility]), Tremors of nervous system, Type [...] Net -50 ml Labs: Hematology: Recent Labs 11/28/23142411/30/23 0648 12/01/23 0606 WBC 9.2 10.1 10.9 [...] -- -- 59 -- Recent Labs 11/28/23 14211/28/23201411/29/23201711/29/23203311/30/23 0648 11/30/23 0807 11/30/23 0830 11/30/23 0930 [...] 03:20 PM PO2ART 92.5 08/22/2011 03:20 PM IFA2VCL 26.0 08/22/2011 03:20 PM NBEA NOT REPORTED 08/22/2011 03:20 PM PBEA 1.8 08/22/2011 03:20 PM [id number] 95.6 08/22/2011 03:20 PM FIO2 INFORMATION NOT PROVIDED 11/30/2023 12:05 AM Lab Results Component Value Date/Time SPECIAL NOT REPORTED 10/20/2012 10:15 AM SPECIAL NOT REPORTED 10/20/2012 10:15 AM Lab Results Component Value Date/Time CULTURE NO GROWTH 10/20/2012 10:15 AM CULTURE 10/20/2012 10:15 AM Performed at [facility] [address] Radiology: XR CHEST (2 VW) Result Date: [...] Chronic kidney disease (CKD), stage III (moderate) ([facility]) 11/30/2023 Yes CHF (congestive heart failure) ([facility]) 11/30/2023 Yes Uncontrolled hypertension 11/30/2023 [...] III (moderate) (HCC) CHF (congestive heart failure) ([facility]) Uncontrolled hypertension Dysphagia GERD (gastroesophageal [...] 2 units and then adjust accordingly Recurrent BIXu-DWPb-bbbyks neurology plan History of prothrombin gene mutation [...] ANTHONY U/F 32G X 4 MM [facility] ACCU-CHEK COMPACT PLUS strip 0 Allergies: Andry Pierre is allergic to beta adrenergic blockers, hydralazine, neuromuscular blocking agents [neuromuscular blocking agents], neurontin [gabapentin], valium, and other. Past Medical History: Diagnosis Date Arthritis Asthma CHF (congestive heart failure) ([facility]) CKD (chronic kidney disease) stage 2, GFR 60-89 ml/min 02/16/2014 Clotting disorder ([facility]) Congenital heart disease COPD (chronic obstructive pulmonary disease) ([facility]) Depression Emphysema of lung ([facility]) GERD (gastroesophageal reflux disease) GERD (gastroesophageal reflux disease) Gout Headache(784.0) Hernia Hernia History of blood clots History of DVT (deep vein thrombosis) Hyperlipidemia Insomnia Irritable bowel syndrome Kidney stones Lumbar degenerative disc disease 01/25/2014 Lumbar radiculopathy 01/25/2014 Obesity PAM (obstructive sleep apnea) 11/16/2013 Parkinson disease Parkinson's disease Post traumatic stress disorder Renal disease Rheumatoid arthritis ([facility]) Stroke ([facility]) 2018 Stroke risk Tracheostomy in place ([facility]) 08/22/2011 Tremors of nervous system [...] INR 2.8 12/01/2023 LABA1C 8.8 (H) 11/25/2023 [id number] 11/30/2023 MG 2.7 (H) 11/30/2023 PHOS [...] 126/90 Pulse: 95 75 69 68 Resp: Temp: 98.1 F (36.7 C) 98 F [...] with any changes in patients neurologic status. Talsona Latham CNP 12/01/23 6:20 AM Associated attestation [...] that he had an EMG done at [facility] on 11/06/23, but I am [...] with questions or concerns. Occupational Therapy Facility/Department: [address] [facility] Occupational Therapy Initial Assessment Name: Andry Pierre [...] of Arthritis, Asthma, CHF (congestive heart failure) ([facility]), CKD (chronic kidney disease) stage 2, GFR 60-89 ml/min, Clotting disorder ([facility]), Congenital heart disease, COPD (chronic obstructive pulmonary disease) ([facility]), Depression, Emphysema of lung ([facility]), GERD (gastroesophageal reflux disease), GERD (gastroesophageal reflux disease), Gout, Headache(784.0), Hernia, Hernia, History of blood clots, History of DVT (deep vein thrombosis), Hyperlipidemia, Insomnia, Irritable bowel syndrome, Kidney stones, Lumbar degenerative disc disease, Lumbar radiculopathy, Obesity, PAM (obstructive sleep apnea), Parkinson disease, Parkinson's disease, Post traumatic stress disorder, Renal disease, Rheumatoid arthritis ([facility]), Stroke ([facility]), Stroke risk, Tracheostomy in place ([facility]), Tremors of nervous system, Type [...] the house) Transfer Assistance: Needs assistance Active Polyethylene Bag Machine Operator: No (friends from [employer]. does not drive) Occupation: On disability [...] Within functional limits Cognition Overall Cognitive Status: [facility] Cognition Comment: pt having fluent conversation throughout [...] Learning: None Education Outcome: Verbalized understanding;Demonstrated understanding AM-[facility] - ADL AM-[facility] Daily Activity - Inpatient How much [...] How much help for eating meals?: None AM-[facility]patient [facility] T-Scale Score : 42.03 ADL Inpatient CMS 0-100% Score: 38.[address] [facility] G-Code Modifier : CJ Goals Short Term [...] Treatment Minutes: 48 Minutes Dina Glez S/OT [facility] [employer] NOT[employer] Facility/Department: [address] [place] CLINICAL BEDSIDE SWALLOW EVALUATION NAME: Andry Pierre : 1960 ADMISSION DATE: 11/29/2023 ADMITTING DIAGNOSIS: has COPD (chronic obstructive pulmonary disease) ([facility]); PAM (obstructive sleep apnea); Obesity, morbid ([facility]); Lumbar degenerative disc disease; Lumbar radiculopathy; Lumbar facet arthropathy; Osteoarthritis of both knees; Diabetic neuropathy ([facility]); Morbid obesity ([facility]); Sleep apnea, obstructive; Encounter for medication monitoring; Chronic kidney disease (CKD), stage III (moderate) ([facility]); Hyperkalemia; Fatigue; Pill rolling tremor; Muscle cramps; Acute renal failure (ARF) ([facility]); Type II or unspecified type diabetes mellitus without mention of complication, not stated as uncontrolled; Depression; Irritable bowel syndrome; Obesity; CHF (congestive heart failure) ([facility]); Parkinson disease; Tremors of nervous system; Tracheostomy in place ([facility]); Bilateral lower extremity edema; CKD (chronic kidney disease); Uncontrolled hypertension; Dysphagia; Hyperlipidemia; History of DVT (deep vein thrombosis); Congenital heart disease; Emphysema of lung ([facility]); Hernia; Stroke risk; GERD (gastroesophageal reflux disease); Asthma; Renal disease; Gout; S/P deep brain stimulator placement; Parkinsons; CKD (chronic kidney disease) stage 2, GFR 60-89 ml/min; Type II or unspecified type diabetes mellitus with renal manifestations, not stated as uncontrolled(250.40); Encounter for chronic pain management; Weight loss, intentional; Spondylarthrosis; Primary osteoarthritis of both knees; DM type 2 with diabetic peripheral neuropathy ([facility]); Need for immunization against influenza; Morbid obesity due to excess calories ([facility]); Diabetic mononeuropathy associated with diabetes [...] of Eval: 11/30/2023 Evaluating Therapist: Janis Velazco VALET PARKER Current Diet level: Current Diet : NPO [...] brain stimulator 10/2008 who initially presented to [facility] 11/24 s/p fall in bathroom with acute left hip/upper thigh and back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 mild to moderately elevated right atrial pressure in absence of pulmonary HTN. On Lasix. Euvolemic on exam, denies recent SOB. Follows with cardiology, records requested. CKD (chronic kidney disease) Creatinine 1.71, eGFR 41 on 11/28/21. BMP pending. Type 2 diabetes mellitus, with long-term current use of insulin ([facility]) On Levemir. Has continuous glucose [...] initiated at this time: Requested records from driver courier for chart completeness. The Following Tests/Procedures Have [...] TIME: 7:24 AM documented in this encounter [facility] 01-08-2022 Miscellaneous Notes Spoke with [...] time today. He was last seen in [facility] by Ming 11/08/2019. Number to return call [phone] Okay to leave a message ? Yes Last office visit 11/2019 with JS Next office visit with not scheduled Thank you calling [facility]. You will receive a return call within 48 hours ( or 2 business days if close to the weekend). If you feel that this is an urgent issue and needs immediate attention, it is recommended that you contact your primary care provider office or proceed to your nearest Urgent Care Center of Emergency Room ED for evaluation/treatment. documented in this encounter [facility] 11-26-2021 Evaluation note Encounter Date Diagnosis Assessment Notes Nov, Stage 3b chronic kidney disease (CKD) (ICD-10 - N18.32) [facility] Other 02-08-2022 Evaluation note* Encounter Date Diagnosis [...] 1 diabetes mellitus (ICD-10 - E10.21) Hemoglobin V5p-ynax is below 7% to attenuate chronic kidney [...] I advised the patient to go to [facility] emergency room Nov, Pure hypercholestero lemia (ICD-10 - E78.00) LDL goal in chronic kidney disease patient is less than 100 to reduce the risk of cardiovascular disease. Patient is working with his PCP/driver courier for this purpose on statin. [facility] Other 10-22-2021 NoteMR#: [id number] [facility] Pt. Name: Andry Pierre Admitted: 07/21/2021 [...] medical [facility] of aforementioned comorbidities[facility], upper quadrant with concern for choledocholithiasis/cholelithiasis [facility]. The patient was referred here [...] Russ MD Date Trans: 07/27/2021 09:41 A/michaela [id number] cc: Say Mccormick M.D. [address] [place] [address]xx[facility] Note Chief Complaint Consultation for lump on [...] hematuria Head injury Heart disease History of long-term anticoagulant use History of stroke Hyperlipidemia Hypertension [...] tablet, extended release oxybutynin (more content not included)...[facility]Comment on above:Result Comment: Electronically Signed By: NOE GEORGE, nAdry Daniel\Date and Time Signed: 03/22/21 10:59 EDTEvaluation note* Diagnosis Pre-op evaluation- Primary Preoperative examination, unspecified Essential tremor Essential and other specified forms of tremor Type 2 diabetes mellitus with other specified complication, with long-term current use of insulin ([facility]) Obesity, Class III, BMI >= 40 Morbid obesity Essential hypertension Unspecified essential hypertension Difficult intravenous access Other specified conditions influencing health status Acute, but ill-defined, cerebrovascular disease Obstructive sleep apnea syndrome Obstructive sleep apnea (adult) (pediatric) Chronic obstructive pulmonary disease, unspecified COPD type ([facility]) Tobacco use Tobacco use disorder Tracheal stenosis Other diseases of trachea and bronchus Gastroesophageal reflux disease, unspecified whether esophagitis present Pulmonary embolus with infarction ([facility]) Other pulmonary embolism and infarction Congestive heart failure, unspecified HF chronicity, unspecified heart failure type ([facility]) Stage 3 chronic kidney disease, unspecified whether stage 3a or 3b CKD ([facility]) Essential tremor Essential and other specified forms of tremor Essential tremor Essential and other specified forms of tremor documented in this encounter [facility] note* Diagnosis 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 Essential tremor Essential and other specified forms of tremor documented in this encounter [facility] note* Diagnosis Essential tremor- Primary Essential and other specified forms of tremor Essential tremor Essential and other specified forms of tremor documented in this encounter [facility] noteNo [facility] Other Evaluation note* Diagnosis Diabetic polyneuropathy associated with type 2 diabetes mellitus (HCC) [E11.42]- Primary Weakness Other malaise and fatigue Obesity, Class III, BMI 40-49.9 (morbid obesity) ([facility]) Morbid obesity documented in this encounter [facility] note* Diagnosis AMS (altered mental status)- Primary Altered mental status CHF (congestive heart failure) ([facility]) Congestive heart failure, unspecified Chronic kidney disease (CKD), stage III (moderate) ([facility]) Chronic kidney disease, Stage III (moderate) Diabetic neuropathy ([facility]) Type II or unspecified type diabetes mellitus with neurological manifestations, not stated as uncontrolled DM type 2 with diabetic peripheral neuropathy ([facility]) Type II or unspecified type [...] of unspecified site documented in this encounter [facility] note* Diagnosis CIDP (chronic inflammatory demyelinating polyneuropathy) (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) Bilateral foot-drop Other acquired deformity of ankle and foot [facility] - [facility]orted* Type Description Date [...] Hospitalization History CELLULITUS Hospitalization History HEART FAILURE [facility] Other Summary Purpose Family History No Family [...] FoundDocuments on File Type Date Recorded Patient Assessment Clinician Expl anation Advance Directive(s) Advance Directive(s) 01/05/2020 5:50 AM Advance Directive(s) 06/24/2019 10:59 AM Advance Directive(s) 06/24/2019 2:04 PM Advance Directive(s) 06/24/2019 2:00 PM Advance Directive(s) 06/18/2019 12:37 PM Advance Directive(s) 07/18/2016 2:43 PM Documents on File Type Date Recorded Patient Assessment Clinician Expl anation Advance Directive(s) 06/24/2019 2:00 PM [...] content) DATE CREATED AUTHOR 06/01/2021 Fidencio Suárez [facility] DATE CREATED AUTHOR AUTHOR'S ORGANIZ ATION 10/30/2021 [facility] DATE CREATED AUTHOR AUTHOR'S ORGANIZ ATION 05/31/2022 [facility] DATE CREATED AUTHOR AUTHOR'S ORGANIZ ATION 03/14/2023 [facility] DATE CREATED AUTHOR AUTHOR'S ORGANIZ ATION 08/14/2023 [facility] DATE CREATED AUTHOR AUTHOR'S ORGANIZ ATION 10/19/2023 [facility] DATE CREATED AUTHOR AUTHOR'S ORGANIZ ATION 11/10/2023 [facility] DATE CREATED AUTHOR AUTHOR'S ORGANIZ ATION 12/05/2023 [facility] DATE CREATED AUTHOR AUTHOR'S ORGANIZ ATION 12/06/2023 [facility] DATE CREATED AUTHOR AUTHOR'S ORGANIZ ATION 12/14/2023 [facility] DATE CREATED AUTHOR AUTHOR'S ORGANIZ ATION 03/24/2024 [facility] DATE CREATED AUTHOR AUTHOR'S ORGANIZ ATION 08/01/2024 [facility] DATE CREATED AUTHOR AUTHOR'S ORGANIZ ATION 08/04/2024 [facility] Source Comments (unrecognize d section and content) In the event this informatio n is protected by the Federal Confidentiality of Alcohol and Drug Abuse Patient Records regulations: The Federal rules restrict any use of the information to criminally investigate or prosecute any alcohol or drug abuse patient.[facility] the event this information is protected by the Federal Confidentiality of Alcohol and Drug Abuse Patient Records regulations: The Federal rules restrict any use of the information to criminally investigate or prosecute any alcohol or drug abuse patient.[facility] the event this information is protected by the Federal Confidentiality of Alcohol and Drug Abuse Patient Records regulations: The Federal rules restrict any use of the information to criminally investigate or prosecute any alcohol or drug abuse patient.[facility] the event this information is protected by the Federal Confidentiality of Alcohol and Drug Abuse Patient Records regulations: The Federal rules restrict any use of the information to criminally investigate or prosecute any alcohol or drug abuse patient.[facility] the event this information is protected by the Federal Confidentiality of Alcohol and Drug Abuse Patient Records regulations: The Federal rules restrict any use of the information to criminally investigate or prosecute any alcohol or drug abuse patient.[facility] the event this information is protected by the Federal Confidentiality of Alcohol and Drug Abuse Patient Records regulations: The Federal rules restrict any use of the information to criminally investigate or prosecute any alcohol or drug abuse patient.[facility] Center[facility] the event this information is protected by the Federal Confidentiality of Alcohol and Drug Abuse Patient Records regulations: The Federal rules restrict any use of the information to criminally investigate or prosecute any alcohol or drug abuse patient.[facility] CenterIn the event this information is protected by the Federal Confidentiality of Alcohol and Drug Abuse Patient Records regulations: The Federal rules restrict any use of the information to criminally investigate or prosecute any alcohol or drug abuse patient.[facility] Center[facility] the event this information is protected by the Federal Confidentiality of Alcohol and Drug Abuse Patient Records regulations: The Federal rules restrict any use of the information to criminally investigate or prosecute any alcohol or drug abuse patient.[facility] Reason for Visit (unrecogniz ed section and content) Reason Comments DBS MARIA G message Reason Comments Pre-Op Visit Reason Comments Results Reason Comments DBS problem Reason Comments New Patient Consult Specialty Diagnoses / Procedures Referred By Contac t Referred To Contact Neurology Diagnoses Weakness Procedures CONSULT TO NEUROLOGY OFFICE/OUTPATIENT NEW HIGH MDM 60-74 MINUTES Shane Parham PA-C [address] [place] [address] Referral ID Status Reason Start Date Expiration Date V isits Requested Visits Authorized [id number] Closed PCP Requested Referral 09/19/2023 09/18/2024 1 1 Specialty Diagnoses / Procedures Referred By Contac t Referred To Contact Diagnoses Syncope and collapse Procedures Tilt table Diogenes Rodriguez MD [id number] [place] [address] Referral ID Status Reason Start Date Expiration Date V isits Requested Visits Authorized [id number] Authorized 11/04/2023 11/03/2024 1 1 Specialty Diagnoses / Procedures Referred By Contac t Referred To Contact Diagnoses AMS (altered mental status) Altered mental status altered mental status Stvz 1c Stepdown [address] [place] [address] [facility] [address] [place] [address] Referral ID Status Reason Start Date Expiration Date Visits Re quested Visits Authorized [id number] 1 1 Care Teams (unrecognized sec tion and content) Centrifuge Separator Tender Relationship Specialty Start Date End Date Say Mccormick MD PCP - General Family Practice 07/15/16 Centrifuge Separator Tender Relationship Specialty Start Date End Date Say Mccormick MD [address] [place] [address] PCP - General Family Practice 07/15/16 Saúl Lunsford MD [address] [place] [address] Cardiology 01/21/22 Centrifuge Separator Tender Relationship Specialty Start Date End Date Say Mccormick MD [address] [place] [facility] [place] [address] PCP - General Family Practice 07/15/16 Saúl Lunsford MD [address] [place] [facility] [address] Cardiology 01/21/22 Centrifuge Separator Tender Relationship Specialty Start Date End Date Say Mccormick MD [address] [place] [facility] [place] [address] PCP - General Family Practice 07/15/16 Saúl Lunsford MD [address] [place] [facility] [address] Cardiology 01/21/22 Centrifuge Separator Tender Relationship Specialty Start Date End Date Say Mccormick MD [address] [place] [place] [address] PCP - General Family Practice 07/15/16 Saúl Lunsford MD [address] [place] [facility] [place] [address] Cardiology 01/21/22 Centrifuge Separator Tender Relationship Specialty Start Date End Date Say Mccormick MD PCP - General Family Medicine 07/15/16 Saúl Lunsford MD [address] [place] [facility] [address] Cardiology 01/21/22 Centrifuge Separator Tender Relationship Specialty Start Date End Date Say Mccormick MD PCP - General Family Medicine 07/15/16 Saúl Lunsford MD [address] [place] [facility] [address] Cardiology 01/21/22 Centrifuge Separator Tender Relationship Specialty Start Date End Date Say Mccormick MD PCP - General Family Medicine 07/15/16 Saúl Lunsford MD [address] [place] [facility] [address] Cardiology 01/21/22 Centrifuge Separator Tender Relationship Specialty Start Date End Date Say Mccormick MD [address] [place] [address] PCP - General Family Medicine 08/11/18 Centrifuge Separator Tender Relationship Specialty Start Date End Date Say Mccormick MD [address] [place] [address] PCP - General Family Medicine 08/11/18 Centrifuge Separator Tender Relationship Specialty Start Date End Date Say Mccormick MD [address] [place] [address] PCP - General Family Medicine 03/24/24 Centrifuge Separator Tender Relationship Specialty Start Date End Date Say Mccormick MD [address] [place] [address] PCP - General Family Medicine 03/24/24 Ordered Prescriptions (unrec ognized section and content) [...] RN)2012 (Given - Provider: Merissa Rice, NABEEL) 904 (Given - Provider: Janneth Nelson RN)2099 [...] RN) 09 (Given - Provider: Janneth Nelson, RN) insulin glargine (LANTUS) injection vial 2 Units 2 Units, SubCUTAneous, DAILY, First dose on Fri12/01/23 at 1330, Until Discontinued 805 (Given - Provider: Rachel Espana RN) 0934 (Given - Provider: Rachel Espana RN) 09 (Given - Provider: Janneth Nelson, NABEEL) insulin lispro (HUMALOG) injection vial 0-4 Units [...] met) 0922 (Not Given - Provider: Rachel Espana, RN - Reason: Order parameters not met)1224 (Not Given - Provider: Rachel Espana RN - Reason: Order parameters not met)1827 (Not Given - Provider: Rachel Espana RN - Reason: Order parameters not met) 0900 (Not Given - Provider: Janneth Nelson RN - Reason: Order parameters not met - Comment: bs 137)1310 (Not Given - Provider: Janenth Nelson RN - Reason: Order parameters not [...] RN) 0933 (Given - Provider: Rachel Espana, RN) 0906 (Given - Provider: Janneth Nelson RN) NIFEdipine (PROCARDIA XL) extended release tablet 90 mg 90 mg, Oral, DAILY, First dose on 11/30/23 at 0900, Until Discontinued, Do not crush or break. 1054 (Given - Provider: Rachle Espana RN) 0950 (Given - Provider: Rachel Espana RN) 0905 (Given - Provider: Janneth Nelson RN) pantoprazole (PROTONIX) tablet 40 mg 40 mg, Oral, DAILY, First dose on 11/30/23 at 0900, Until Discontinued, Do not crush or break. 0806 (Given - Provider: Rachel Espana RN) 0934 (Given - Provider: Rachel Espana, NABEEL) 0906 (Given - Provider: Janneth Nelson RN) rivastigmine (EXELON) 4.6 MG/24HR 1 patch 1 patch, TransDERmal, Administer over 24 Hours, DAILY, First dose on Fri12/03/23 at 1445 0745 (Patch Removed - Provider: Rachel Espana RN)0748 (Patch Applied - Provider: Rachel Espnaa RN) 0924 (Patch Removed - Provider: Rachel [...] Rice, NABEEL) 0942 (Given - Provider: Rachel Espana RN)2012 [...] Espana RN)2003 (Given - Provider: Merissa Rice, NABEEL) 0934 (Given - Provider: Rachel Espana RN)2012 (Given - Provider: Merissa Rice RN) 09 (Given - Provider: Janneth Nelson [...] Until Discontinued, Labeling may look different. 25 mdw=2004 Units. Please double check dosages. 0748 (Given [...] Hazardous med- See facility policy for handling/disposal 3854 (Given - Provider: Rachel Espana RN) warfarin [...] Rice RN) 0538 (Given - Provider: Merissa Rice, NABEEL)2012 (Given - Provider: Merissa Rice RN) 0535 (Given - Provider: Merissa Rice RN)1456 (Given - Provider: Janneth Nelson RN) dextrose 10 % infusion IntraVENous, at 100 mL/hr, CONTINUOUS PRN, if blood glucose remains LESS THAN 70 mg/dL after 2 dextrose 10% intravenous boluses or administration of glucagon, Starting on Fri11/30/23 at 1348, If blood glucose fails to [...] Merissa Rice RN)0648 (Given - Provider: Merissa Rice, NABEEL)1109 (Given - Provider: Rachel Espana, NABEEL)1544 (Given - Provider: Rachel Espana, RN)2004 (Given - Provider: Merissa Rice RN) 0032 (Given - Provider: Merissa Rice RN)0443 (Given - Provider: Merissa Rice, NABEEL)0934 (Given - Provider: Rachel Espana, RN) morphine (PF) injection 2 mg (CANCELED) [...] Rice RN)1310 (Given - Provider: Janneth Nelson, NABEEL)1917 (Given - Provider: Janneth Nelson, RN) ondansetron [...] BE BASED ON THE PRIMARY CLINICAL RECORDS. [employer] [facility]. provides no warranty or guarantee of the accuracy or completeness of information in this document.
--- NOTE | 2024-08-05 08:15 | NM_ITS ---
Patient Name: ANDRY PIERRE MR#: [id number] : 1960 Exam Date: 08/05/2024 Ordering Doctor: DR. LEN GOMEZ M.D. RADIOLOGY REPORT PROCEDURE: NM FREDA PERF SPECT REST STR COMPARISON: NM FREDA PERF SPECT REST STR, 10/10/2023. INDICATIONS: CHEST PAIN TECHNIQUE: Exam Description: Stress/Rest two day protocol gated SPECT Rest Imagin.9 mCi Tc-99m Cardiolite IV on 08/05/2024 Stress Imaging 26.3 mCi Tc-99m Cardiolite IV on 08/09/2024 Exercise Protocol: 0.4 mg Lexiscan given IV Heart Rate (bpm): Rest: 55 Max: 68 PMHR: 43 Blood Pressure: Rest: 140/78 Max: 140/78 Symptoms: Rest and peak stress ECG findings were normal and the exercise portion of the study was normal per attending physician Dr. Lunsford . For more details please see separate cardiac stress test report. FINDINGS: QUALITY OF STUDY: PERFUSION DEFECT: LOCATION: Mid-inferior. Apical inferior. SIZE: Small (1-2 segments). SEVERITY: Mild. TYPE: Persistent. WALL MOTION: Normal. LV SIZE: Enlarged; EDV 120 mL. TID / TCD: None; 1.2 LVEF: Normal. Calculated EF 64%. SUMMARY: Myocardial perfusion imaging study has ABNORMAL findings. CONCLUSION: 1. Small fixed defect inferior wall, RCA distribution 2. No redistribution to suggest reversible ischemia 3. Borderline enlarged left ventricle with end-diastolic volume 120 4. Normal exercise test Dictated by: Carmelo Perales MD on 08/09/2024 at 14:24 Approved by: Carmelo Perales MD on 08/09/2024 at 14:29
--- NOTE | 2024-08-05 09:40 | CA_ITS ---
Patient Name: ANDRY PIERRE MR#: [id number] : 1960 Exam Date: 08/05/2024 Ordering Doctor: DR. LEN GOMEZ M.D. ECHOCARDIOGRAM REPORT PROCEDURE: CA ECHO DOPPLER COMPLETE INDICATIONS: CHF w/low ejection fraction COMPARISON: None. DESCRIPTION: COMPLETE ECHOCARDIOGRAM Real-time transthoracic echocardiography with 2D, M-mode, spectral and color flow Doppler performed. QUALITY: Technical quality was good. LEFT VENTRICLE: Normal chamber size. Mild concentric hypertrophy. Global left ventricular systolic function is normal. LV EF: Estimated left ventricular ejection fraction is 60-65%. DIASTOLIC: Diastolic function is indeterminate. ATRIAL SEPTUM: LEFT ATRIUM: Mild dilatation. RIGHT ATRIUM: Normal chamber size. RIGHT VENTRICLE: Normal chamber size. Normal right ventricular systolic function. TRICUSPID VALVE: Normal mobility and thickness. No stenosis with mild regurgitation. Mild pulmonary hypertension. RVSP 35 mmHg MITRAL VALVE: Normal mobility and thickness. No evidence of mitral valve stenosis. Mild mitral annular calcification. Trivial mitral regurgitation. AORTIC VALVE: Normal trileaflet appearance. Thickened aortic valve. Normal leaflet mobility. No evidence of aortic valve stenosis. No aortic regurgitation. AORTIC ROOT: Normal diameter and appearance. PULMONIC VALVE: Normal thickness and mobility. No stenosis. No regurgitation. PERICARDIUM: No evidence of pericardial effusion. IVC: Collapses with inspirations. Normal size. PLEURA: CONCLUSION: 1. Mild concentric left ventricular hypertrophy with normal systolic function. LVEF is estimated at 60 to 65%. 2. Normal right ventricular size and systolic function. 3. No significant valvular dysfunction. 4. Mildly elevated right-sided pressures. Adult Echocardiography Procedure Report Left Ventricle LVEDD (3.7 - 5.6 cm): 4.56 cm LVESD (2.2 - 4.0 cm): 2.96 cm LVIVS thickness (0.6 - 1.2 cm): 1.36 cm LVPW thickness (0.5 - 1.0 cm): 1.15 cm e': 0.14 m/s E - e': 6.48 LVOT Max Gradient: 6.43 mm[Hg] LVOT Area (cm2): 1.27 m/s Peak Velocity (LVOT): 1.27 m/s Mean Velocity (LVOT): 0.81 m/s LVOT Diameter 2.16 cm Left Ventricular Ejection Fraction: 60-65 % Left Atrium LA Volume Index (2D A2C): 37.15 ml/m2 Left Atrium Systolic Dimension: 4.39 cm Mitral Valve MV E to A Ratio: 1.11 Mitral Valve A-Wave Peak Velocity: 0.83 m/s Mitral Valve E-Wave Peak Velocity: 0.93 m/s Right Ventricle RV Internal Diastolic Dimension: 3.62 cm Aorta AO Root Diam: 2.95 cm Ascending Ao Diam: 2.62 cm Aortic Valve AoV Area (Peak Jose De Jesus): 2.71 cm2, 2.71 cm2 AoV Area (VTI): 2.64 cm2, 2.64 cm2 Peak Velocity(Antegrade Flow): 1.72 m/s Peak Gradient(Antegrade Flow): 11.79 mm[Hg] Mean Velocity(Antegrade Flow): 1.09 m/s Mean Gradient(Antegrade Flow): 5.63 mm[Hg] Velocity Time Integral: 40.74 cm Tricuspid Valve Peak Velocity (Regurgitant Flow): 2.83 m/s, 2.77 m/s, 2.24 m/s Pulmonic Valve Mean Gradient: 2.32 mm[Hg], 2.66 mm[Hg] Mean Velocity: 0.71 m/s, 0.76 m/s Peak Velocity: 1.09 m/s Peak Gradient: 4.39 mm[Hg], 5.09 mm[Hg] Right Atrium Right Atrium Systolic Pressure: 47.27 ml, 47.27 ml Dictated by: Haja Pearce M.D. on 08/05/2024 at 18:58 Approved by: Haja Pearce M.D. on 08/05/2024 at 19:02
== END 2024-08-05 08:05 | disposition home or self-care (01) ==
LOC: NM 08:05
PROVIDERS: PCP Family Medicine; Visit Provider Internal Medicine Cardiovascular Disease
DX: I50.33 Acute on chronic diastolic (congestive) heart failure (principal); R07.89 Other chest pain; R60.0 Localized edema
CPT/HCPCS: 78452; 93306; A9500

== ENCOUNTER 2024-08-06 11:46 | Outpatient (RCR) | payer MEDICARE, MEDICAID, SELFPAY | END 2024-09-04 23:59 | disposition home or self-care (01) | LOC: MM 11:46 | PROVIDERS: PCP Family Medicine; Visit Provider Internal Medicine | DX: Z51.81 Encounter for therapeutic drug level monitoring (principal); Z79.01 Long term (current) use of anticoagulants; I82.409 Acute embolism and thrombosis of unspecified deep veins of unspecified lower extremity ==

== ENCOUNTER 2024-08-09 09:00 | Outpatient (OUT) | payer MEDICARE, MEDICAID, SELFPAY ==
--- NOTE | 2024-08-09 | PCN_ITS ---
CARDIAC STRESS TEST Requesting Physician: Procedure Date: 08/09/2024 INDICATION: Chest pain. METHODS: After risks, benefits, and alternatives were explained, the patient was brought to the Stress Lab in a resting and fasting state. He was connected to the appropriate hemodynamic and electrocardiographic monitoring. He underwent a pharmacological stress test. He was transferred to the Nuclear Lab for imaging. There were no complications. STRESS TEST INFORMATION: The patient received 0.4 mg of IV Lexiscan. Technetium Cardiolite was administered per protocol. Resting heart rate was 55 beats per minute, increasing to a maximum of 68 beats per minute. Resting blood pressure was 140/78, decreasing to a minimum of 120/82. No overt symptoms were reported. ELECTROCARDIOGRAPHY: Rest EKG shows sinus bradycardia. Low voltage QRS in the limb leads. Borderline EKG. During infusion and recovery: No significant ST-T wave changes noted. No significant arrhythmias seen. FINAL IMPRESSIONS: 1. No ischemic EKG changes seen on Lexiscan pharmacological stress test. 2. Nuclear images are to be read, interpreted and reported in a separate dictation. SHANNA
--- NOTE | 2024-08-09 09:58 | PC.NURSE ---
Nursing Note Cardiac Stress Test Reviewed: Medication, allergies and patient history reviewed. Stress Test: [ x] Patient tolerated stress test well. [ ] Patient unable to tolerate walking on treadmill. Switched to Lexiscan stress test. [x ] No chest pain noted per patient [ ] Chest pain that resolved prior to leaving stress lab. [ x] No dyspnea noted. [ ] Dyspnea that resolved prior to leaving stress lab. [ x] Patient left stress lab asymptomatic and hemodynamically stable. [ ] Patient taken to the Emergency Room due to non-resolving symptoms following stress test. [ ] Patient achieved target heart rate. [ ] Patient unable to achieve target heart rate. [ ] Aminophylline administered as reversal agent to Lexiscan (Regadenoson). [ ] Nitro administered. Nursing Comments: Patient has a neurological condition CIDP, with a deep brain stimulator. Patient did his best to keep hands tight to the bed to decrease the amount of artifact through out the test. Due to this he did have some left shoulder discomfort which was resolved with repositioning.
[2024-08-09] MEDS: REGADENOSON 0.4 MG/5 ML SYRINGE IV (10:02)
== END 2024-08-09 09:01 | disposition home or self-care (01) ==
LOC: CARD 09:00
PROVIDERS: PCP Family Medicine; Visit Provider Internal Medicine Cardiovascular Disease
DX: R07.89 Other chest pain (principal)
CPT/HCPCS: 93017; J2785

== ENCOUNTER 2024-09-06 03:59 | Outpatient (RCR) | payer MEDICARE, SELFPAY | END 2024-10-05 09:32 | disposition home or self-care (01) | LOC: MM 03:59 | PROVIDERS: PCP Internal Medicine Cardiovascular Disease; Visit Provider Internal Medicine | DX: Z51.81 Encounter for therapeutic drug level monitoring (principal); Z79.01 Long term (current) use of anticoagulants ==

== ENCOUNTER 2024-10-07 00:42 | Outpatient (RCR) | payer MEDICARE, SELFPAY | END 2024-11-05 15:18 | disposition home or self-care (01) | LOC: MM 00:42 | PROVIDERS: PCP Internal Medicine Cardiovascular Disease; Visit Provider Internal Medicine | DX: Z51.81 Encounter for therapeutic drug level monitoring (principal); Z79.01 Long term (current) use of anticoagulants ==

== ENCOUNTER 2024-10-21 10:33 | Emergency (ER) | payer MEDICARE, SELFPAY ==
--- NOTE | 2024-10-21 10:38 | CT_ITS ---
[address] [address] Patient Name: ANDRY PIERRE MRN: [id number] date: 1960 Sex: M Assigned Patient Location: ER Current Patient Location: Accession/Order Number: [id number] Exam Date: 10/21/2024 10:52 Report Date: 10/21/2024 11:39 At the request of: DAKOTA MARROQUIN Procedure: CT abdomen pelvis wo con EXAM: CT abdomen pelvis wo con HISTORY: sbo concern. COMPARISON: 03/22/2024. TECHNIQUE: Dose reduction techniques were achieved by using automated exposure control and/or adjustment of mA and/or kV according to patient size and/or use of iterative reconstruction technique. Noncontrast CT of the abdomen/pelvis. FINDINGS: Lung bases are clear. No focal liver abnormality. Calcified granulomata of the spleen. Distal esophagus, stomach and duodenum are normal. Cholecystectomy. Common bile duct is prominent which can be seen in postcholecystectomy patients. Pancreas is normal. Adrenal glands are normal. Kidneys are normal. No hydronephrosis. No hydroureter. No nephroureterolithiasis. No bladder stones. No focal bladder wall thickening. No colonic dilation. No pericolonic fat stranding. No small bowel dilation. No adjacent mesenteric edema. No evidence for small bowel obstruction. No inflammation at the right lower quadrant. Appendix is not seen. No retroperitoneal adenopathy. Mild atherosclerotic calcification of the abdominal aorta. No abdominal aortic aneurysm. No inguinal or pelvic adenopathy. Mild degeneration of the bilateral hip joints. Mild degeneration of the lower thoracic spine disc spaces. Vertebral body height is preserved. Moderate facet joint arthropathy at L4-L5 and L5-S1. Normal alignment of the sacrum and coccyx. CT/CT abdomen pelvis wo con IMPRESSION: 1. No acute small bowel or colonic abnormality. 2. No evidence for small bowel obstruction. 3. Cholecystectomy. 4. No hydronephrosis or hydroureter. No ureteral stones. 5. Other findings as described. Electronically authenticated by: TRICIA SHER Date: 10/21/2024 11:39
[2024-10-21 10:46] VITALS: PULSE 80; TEMP 36.2; O2SAT 97; BMI 39.1
[2024-10-21 11:03] VITALS: TEMP 36.6
[2024-10-21 11:17] VITALS: BP 90/58
[2024-10-21 11:24] LABS: Basophils Absolute Auto 0.1 10^3/uL (0.0-0.1); Basophils Percent Auto 0.8 % (0.2-2.0); Eosinophils Absolute Auto 0.4 10^3/uL (0.0-0.7); Eosinophils Percent Auto 4.3 % (0.9-7.0); Hematocrit 44.4 % (42.0-54.0); Hemoglobin 14.8 g/dL (14.0-18.0); Immature Granulocytes Abs Auto 0.03 10^3/uL (0.00-0.03); Immature Granulocytes Pct Auto 0.3 % (0.0-0.5); Lymphocytes Absolute Auto 3.1 10^3/uL (1.2-3.8); Lymphocytes Percent Auto 34.9 % (20.5-60.0); Mean Corpuscular HGB Conc 33.3 g/dL (29.9-35.2); Mean Corpuscular Hemoglobin 32.3 pg (25.9-34.0); Mean Corpuscular Volume 96.9 fL (80.0-94.0); Mean Platelet Volume 10.8 fL (9.5-13.5); Monocytes Absolute Auto 0.7 10^3/uL (0.3-0.8); Monocytes Percent Auto 7.5 % (1.7-12.0); Neutrophils Absolute Auto 4.6 10^3/uL (1.4-6.5); Neutrophils Percent Auto 52.2 % (43.0-75.0); Platelet Count 184 10^3/uL (150-450); Red Blood Count 4.58 10^6/uL (4.70-6.10); Red Cell Distribution Width 13.1 % (11.0-15.0); White Blood Count 8.9 10^3/uL (4.0-11.0)
[2024-10-21 11:43] LABS: Alanine Aminotransferase 13 U/L (16-63); Albumin Globulin Ratio 0.8; Albumin Level 3.1 g/dL (3.4-5.0); Alkaline Phosphatase 99 U/L (46-116); Anion Gap 11.4; Aspartate Amino Transferase 25 U/L (15-37); BUN Creatinine Ratio 12.3; Bilirubin Total 0.4 mg/dL (0.2-1.0); Calcium 8.6 mg/dL (8.5-10.1); Carbon Dioxide 28.8 mmol/L (21.0-32.0); Chloride 106 mmol/L (98-107); Estimated GFR (African America 40 (>=60 mL/min/1.73m^2); Estimated GFR (Non-African Ame 33 (>=60 mL/min/1.73m^2); Globulin 3.9 g/dL; Glucose 137 mg/dL (74-106); Sodium 143 mmol/L (136-145)
[2024-10-21 12:13] LABS: Potassium 3.2 mmol/L (3.5-5.1)
[2024-10-21] MEDS: ONDANSETRON PF 4 MG/2 ML VIAL IV (12:17)
[2024-10-21 13:15] VITALS: BP 120/72
--- NOTE | 2024-10-21 14:40 | ED.ABDPAIN1 ---
HPI - Abdominal Pain General Chief Complaint: Abdominal Pain Stated Complaint: ABDOMINAL PAIN RIGHT SIDE Time Seen by Provider: 10/21/24 10:38 Source: patient Mode of arrival: Wheelchair History of Present Illness HPI narrative: The patient have a chronic lower abdominal pain for the last 2 to 3 years he mentioned that this pain started almost after he had his gallbladder removed, the patient also have a history of appendectomy is coming to us with a increase in his right lower quadrant pain associated with some diarrhea and nausea and vomiting Although the patient vomiting is not a new complaint he has been taking Zofran as well as some time they tried Compazine for it and it did not help In the ER the patient already received Percocet before arrival he was not complaining of any severe pain The patient apparently was concerned about small bowel obstruction Related Data Home Medications ?Medication ?Instructions ?Recorded ?Confirmed atorvastatin 40 mg tablet 40 mg PO .QD 04/01/23 10/21/24 candesartan 8 mg tablet 4 mg PO .QD 04/01/23 10/21/24 cetirizine 10 mg tablet 10 mg PO DAILY PRN allergy symptoms 04/01/23 10/21/24 clonidine HCl 0.1 mg tablet 0.05 mg PO BID 04/01/23 10/21/24 furosemide 40 mg tablet 40 mg PO BID 04/01/23 10/21/24 montelukast 10 mg tablet 10 mg PO .QD 04/01/23 10/21/24 nifedipine 90 mg tablet,extended 90 mg PO .QD 04/01/23 10/21/24 release 24 hr pantoprazole 40 mg tablet,delayed 40 mg PO .QD 04/01/23 10/21/24 release potassium chloride 20 mEq 20 meq PO .QD 04/01/23 10/21/24 tablet,extended release topiramate 50 mg tablet 100 mg PO Q12H 04/01/23 10/21/24 empagliflozin 10 mg tablet 10 mg PO QDAY 10/08/23 10/21/24 (Jardiance) insulin degludec 100 unit/mL (3 56 unit subcut BID 10/08/23 10/21/24 mL) subcutaneous pen (Tresiba FlexTouch U-100 insulin) apixaban 2.5 mg tablet (Eliquis) 2.5 mg PO BID 10/21/24 10/21/24 bumetanide 2 mg tablet mg 10/21/24 linaclotide 145 mcg capsule mcg 10/21/24 (Linzess) metformin 500 mg tablet mg 10/21/24 metoprolol tartrate 50 mg tablet mg 10/21/24 Previous Rx's ?Medication ?Instructions ?Recorded hydrocodone 7.5 mg-acetaminophen 1 tab PO BID PRN pain #60 tabs 11/27/23 325 mg tablet naloxone 4 mg/actuation nasal 4 mg intranasal Q2M PRN opioid 11/27/23 spray (Narcan) overdose #2 ea hydrocodone 7.5 mg-acetaminophen 1 tab PO TID PRN pain #90 tabs 12/10/23 325 mg tablet hydrocodone 7.5 mg-acetaminophen 1 tab PO Q6H PRN pain #12 tabs 03/23/24 325 mg tablet ondansetron 4 mg disintegrating 4 mg PO Q8H PRN nausea and 03/23/24 tablet vomiting 4 days #16 tabs Allergies Allergy/AdvReac Type Severity Reaction Status Date / Time diazepam (From Valium) Allergy Unknown Verified 10/21/24 10:46 gabapentin (From Neurontin) Allergy Unknown Verified 10/21/24 10:46 BETA BLOCKERS Allergy Headache Uncoded 10/21/24 10:46 Review of Systems ROS Status of ROS 10 or more systems reviewed and unremarkable except as noted in history and below [facility] Medical History Acid reflux ?K21.9 - Gastro-esophageal reflux disease without esophagitis (ICD-10) Angina at rest ?I20.89 - Other forms of angina pectoris (ICD-10) CHF (congestive heart failure) ?I50.9 - Heart failure, unspecified (ICD-10) COPD (chronic obstructive pulmonary disease) ?J44.9 - Chronic obstructive pulmonary disease, unspecified (ICD-10) Emphysema lung ?J43.9 - Emphysema, unspecified (ICD-10) High cholesterol ?E78.00 - Pure hypercholesterolemia, unspecified (ICD-10) Implantable loop recorder present ?Z95.818 - Presence of other cardiac implants and grafts (ICD-10) Kidney failure ?N19 - Unspecified kidney failure (ICD-10) Palpitations ?R00.2 - Palpitations (ICD-10) Stroke ?I63.9 - Cerebral infarction, unspecified (ICD-10) Surgical History Status post emergency tracheotomy for assistance in breathing ?Z93.0 - Tracheostomy status (ICD-10) History of hydrocelectomy ?Z98.890 - Other specified postprocedural states (ICD-10) History of cardiac cath ?Z98.890 - Other specified postprocedural states (ICD-10) History of tonsillectomy ?Z90.89 - Acquired absence of other organs (ICD-10) History of sinus surgery ?Z98.890 - Other specified postprocedural states (ICD-10) History of carpal tunnel release ?Z98.890 - Other specified postprocedural states (ICD-10) H/O arthroscopic knee surgery ?Z98.890 - Other specified postprocedural states (ICD-10) History of ankle surgery ?Z98.890 - Other specified postprocedural states (ICD-10) History of Achilles tendon repair ?Z98.890 - Other specified postprocedural states (ICD-10) H/O inguinal hernia repair ?Z98.890 - Other specified postprocedural states (ICD-10) ?Z87.19 - Personal history of other diseases of the digestive system (ICD-10) Status post deep brain stimulator placement ?Z96.89 - Presence of other specified functional implants (ICD-10) Hx of cholecystectomy ?Z90.49 - Acquired absence of other specified parts of digestive tract (ICD-10) Social History Smoking status: Never smoker Highest level of school completed/degree received: Bachelor's degree Little interest or pleasure in doing things: not at all Feeling down, depressed, or hopeless: not at all Exam Narrative Exam Narrative: Nurses notes and vital signs reviewed and patient is not hypoxic. General: Well-appearing and in no apparent distress. Skin: Warm, dry, no pallor noted. No rash. Head: Normocephalic, atraumatic. Neck: Supple, non-tender. Eye: Pupils are equal, round and EOMI. No scleral icterus. Ears, Nose, Mouth, and Throat: TM are clear, no nasal mucosal hypertrophy. Oral mucosa is moist, no posterior oropharynx erythema, uvula is mid-line Cardiovascular: Regular Rate and Rhythm without murmur, gallop or rub. Respiratory: No accessory muscle use or respiratory distress. Lungs are clear to auscultation, no wheezing, rales or rhonchi Chest Wall: no tenderness Back: No midline thoracic or lumbar vertebral tenderness. No CVA tenderness Musculoskeletal: normal ROM, no calf or popliteal tenderness, no lower extremity edema/swelling GI: Abdomen is soft, non-distended. Normal bowel sounds. No masses appreciated. There is right lower quadrant tenderness on superficial palpation Constitutional Vital Signs, click to edit/add: Last Vital Signs Temp 97.8 F 10/21/24 11:03 Pulse 80 10/21/24 10:46 Resp 18 10/21/24 10:46 BP 120/72 10/21/24 13:15 Pulse Ox 97 10/21/24 10:46 O2 Del Method Room Air 10/21/24 10:46 Course Vital Signs Vital signs: Vital Signs Temperature 97.1 F L 10/21/24 10:46 Pulse Rate 80 10/21/24 10:46 Respiratory Rate 18 10/21/24 10:46 Pulse Oximetry 97 10/21/24 10:46 Oxygen Delivery Method Room Air 10/21/24 10:46 Temperature 97.8 F 10/21/24 11:03 Pulse Rate 80 10/21/24 10:46 Respiratory Rate 18 10/21/24 10:46 Blood Pressure 120/72 10/21/24 13:15 Pulse Oximetry 97 10/21/24 10:46 Oxygen Delivery Method Room Air 10/21/24 10:46 MDM - Abdominal Pain MDM Narrative Medical decision making narrative: The patient CBC and chemistry showed hypokalemia which is a chronic problem with the potassium 3.2 and the patient is taking p.o. potassium at home The patient CAT scan of the abdomen pelvis showed no acute pathology Right now the patient was discharged home during and supportive care in addition to follow-up with gastroenterology as outpatient for colonoscopy As he had his last colonoscopy done 5 years ago The patient is to follow up with primary care physician in next 2-3 days or to return to the emergency department should any of the signs or symptoms worsen or new symptoms develop. The patient agrees with the following Diagnosis and Treatment plan and the patient will be discharged home. Lab Data Labs: Lab Results 10/21/24 Range/Units 10:55 WBC 8.9 (4.0-11.0) 10^3/uL RBC 4.58 L (4.70-6.10) 10^6/uL Hgb 14.8 (14.0-18.0) g/dL Hct 44.4 (42.0-54.0) % MCV 96.9 H (80.0-94.0) fL MCH 32.3 (25.9-34.0) pg MCHC 33.3 (29.9-35.2) g/dL RDW 13.1 (11.0-15.0) % Plt Count 184 (150-450) 10^3/uL MPV 10.8 (9.5-13.5) fL Neut % (Auto) 52.2 (43.0-75.0) % Lymph % (Auto) 34.9 (20.5-60.0) % [place] % (Auto) 7.5 (1.7-12.0) % Eos % (Auto) 4.3 (0.9-7.0) % Baso % (Auto) 0.8 (0.2-2.0) % Neut # (Auto) 4.6 (1.4-6.5) 10^3/uL Lymph # (Auto) 3.1 (1.2-3.8) 10^3/uL [place] # (Auto) 0.7 (0.3-0.8) 10^3/uL Eos # (Auto) 0.4 (0.0-0.7) 10^3/uL Baso # (Auto) 0.1 (0.0-0.1) 10^3/uL Abs Immat Gran (auto) 0.03 (0.00-0.03) 10^3/uL Imm/Tot Granulo (auto) 0.3 (0.0-0.5) % Sodium 143 (136-145) mmol/L Potassium 3.2 L (3.5-5.1) mmol/L Chloride 106 (98-107) mmol/L Carbon Dioxide 28.8 (21.0-32.0) mmol/L Anion Gap 11.4 BUN 25.0 H (7.0-18.0) mg/dL Creatinine 2.04 H (0.70-1.30) mg/dL Est GFR ( Amer) 40 L (>=60 mL/min/1.73m^2) Est GFR (Non-Af Amer) 33 L (>=60 mL/min/1.73m^2) BUN/Creatinine Ratio 12.3 Glucose 137 H (74-106) mg/dL Calcium 8.6 (8.5-10.1) mg/dL Total Bilirubin 0.4 (0.2-1.0) mg/dL AST 25 (15-37) U/L ALT 13 L (16-63) U/L Alkaline Phosphatase 99 (46-116) U/L Total Protein 7.0 (6.4-8.2) g/dL Albumin 3.1 L (3.4-5.0) g/dL Globulin 3.9 g/dL Albumin/Globulin Ratio 0.8 Discharge Plan Discharge Chief Complaint: Abdominal Pain Clinical Impression: Abdominal pain Patient Disposition: Home, Self-Care Time of Disposition Decision: 13:04 Condition: Good Mode of Transportation: Private Vehicle Prescriptions / Home Meds: No Action atorvastatin 40 mg tablet 40 mg PO .QD candesartan 8 mg tablet 4 mg PO .QD Rx Instructions: patient states he takes 0.5 tab but hasn't filled since 05/28 clonidine HCl 0.1 mg tablet 0.05 mg PO BID furosemide 40 mg tablet 40 mg PO BID montelukast 10 mg tablet 10 mg PO .QD nifedipine 90 mg tablet extended release 24hr 90 mg PO .QD pantoprazole 40 mg tablet,delayed release (DR/EC) 40 mg PO .QD potassium chloride 20 mEq tablet extended release 20 meq PO .QD topiramate 50 mg tablet 100 mg PO Q12H cetirizine 10 mg tablet 10 mg PO DAILY PRN (Reason: allergy symptoms) hydrocodone-acetaminophen 7.5-325 mg tablet 1 tab PO BID PRN (Reason: pain) Qty: 60 0RF naloxone [Narcan] 4 mg/actuation spray,non-aerosol 4 mg intranasal Q2M PRN (Reason: opioid overdose) Qty: 2 1RF Rx Instructions: spray 1 dose into ONE nostril; alternate nostrils w each dose until help arrives hydrocodone-acetaminophen 7.5-325 mg tablet 1 tab PO TID PRN (Reason: pain) Qty: 90 0RF hydrocodone-acetaminophen 7.5-325 mg tablet 1 tab PO Q6H PRN (Reason: pain) Qty: 12 0RF ondansetron 4 mg tablet,disintegrating 4 mg PO Q8H PRN (Reason: nausea and vomiting) 4 Days Qty: 16 0RF Jardiance 10 mg tablet 10 mg PO QDAY insulin degludec [Tresiba FlexTouch U-100] 100 unit/mL (3 mL) insulin pen 56 unit SUBCUT BID Eliquis 2.5 mg tablet 2.5 mg PO BID metformin 500 mg tablet bumetanide 2 mg tablet metoprolol tartrate 50 mg tablet Linzess 145 mcg capsule Print Language: Martiniquais Instructions: Abdominal Pain (ED) Referrals: Say Aamto MD [Primary Care Provider] - 1 week Discharge Date/Time: 10/21/24 13:20
== END 2024-10-21 13:20 | disposition home or self-care (01) ==
PROVIDERS: Emergency Provider Emergency Medicine; PCP Family Medicine
DX: R10.31 Right lower quadrant pain (principal); Z90.49 Acquired absence of other specified parts of digestive tract; E87.6 Hypokalemia
CPT/HCPCS: 36415; 74176; 80053; 85025; 96374; 99285; J2405

== ENCOUNTER 2024-11-05 13:50 | Outpatient (OUT) | payer MEDICARE, SELFPAY ==
--- NOTE | 2024-11-05 13:52 | CT_ITS ---
[address] [address] Patient Name: ANDRY PIERRE MRN: [id number] date: 1960 Sex: M Assigned Patient Location: CT Current Patient Location: Accession/Order Number: [id number] Exam Date: 11/05/2024 14:00 Report Date: 11/08/2024 10:28 At the request of: MARILU WISE Procedure: CT chest wo con EXAMINATION: CT chest wo con HISTORY: Abnormal Finding Lung Field ; pulmonary nodules, chronic shortness of breath COMPARISON: CT chest 02/24/2024 TECHNIQUE: Axial, Coronal, and Sagittal images were created without the administration of IV contrast material. Dose reduction techniques were achieved by using automated exposure control and/or adjustment of mA and/or kV according to patient size and/or use of iterative reconstruction technique. FINDINGS: LUNGS: Scattered tiny calcified granulomas. No acute infiltrates or suspicious nodules. PLEURA: No mass, effusion, or pneumothorax. VASCULATURE: No abnormality. VINNIE: Calcified right hilar lymph nodes compatible with chronic granulomatous disease. MEDIASTINUM: No mass or pathologic adenopathy. CARDIAC: No enlargement, pericardial thickening, or pericardial effusion. Coronary Artery calcifications: Coronary calcifications are mild. AORTA: No aneurysm or dissection. CHEST WALL: Loop recorder within anterior left chest wall. No mass or axillary adenopathy BONES: No bone lesion or fracture. LIMITED ABDOMEN: No suspicious findings. Limited images of the upper abdomen. OTHER: Negative. CT/CT chest wo con IMPRESSION: 1. No acute or suspicious findings. Stable mild chronic granulomatous disease. 2. Clearing of previously seen right basilar infiltrates. Electronically authenticated by: ROCK AVELAR Date: 11/08/2024 10:28
== END 2024-11-05 13:51 | disposition home or self-care (01) ==
LOC: CT 13:50
PROVIDERS: PCP Family Medicine; Visit Provider Internal Medicine
DX: R91.8 Other nonspecific abnormal finding of lung field (principal)
CPT/HCPCS: 71250

== ENCOUNTER 2024-11-08 02:18 | Outpatient (RCR) | payer MEDICARE, SELFPAY | END 2024-12-03 13:14 | disposition home or self-care (01) | LOC: MM 02:18 | PROVIDERS: PCP Family Medicine; Visit Provider Internal Medicine | DX: Z51.81 Encounter for therapeutic drug level monitoring (principal); Z79.01 Long term (current) use of anticoagulants ==

== ENCOUNTER 2024-12-05 07:50 | Outpatient (RCR) | payer MEDICARE, SELFPAY | END 2024-12-31 13:24 | disposition home or self-care (01) | LOC: MM 07:50 | PROVIDERS: PCP Family Medicine; Visit Provider Internal Medicine | DX: Z51.81 Encounter for therapeutic drug level monitoring (principal); Z79.01 Long term (current) use of anticoagulants ==

== ENCOUNTER 2024-12-16 10:50 | Outpatient (OUT) | payer MEDICARE, SELFPAY ==
[2024-12-16 11:43] LABS: Basophils Absolute Auto 0.1 10^3/uL (0.0-0.1); Basophils Percent Auto 0.6 % (0.2-2.0); Eosinophils Absolute Auto 0.4 10^3/uL (0.0-0.7); Eosinophils Percent Auto 4.6 % (0.9-7.0); Hematocrit 40.8 % (42.0-54.0); Hemoglobin 12.9 g/dL (14.0-18.0); Immature Granulocytes Abs Auto 0.04 10^3/uL (0.00-0.03); Immature Granulocytes Pct Auto 0.4 % (0.0-0.5); Lymphocytes Absolute Auto 1.6 10^3/uL (1.2-3.8); Lymphocytes Percent Auto 17.4 % (20.5-60.0); Mean Corpuscular HGB Conc 31.6 g/dL (29.9-35.2); Mean Corpuscular Hemoglobin 30.9 pg (25.9-34.0); Mean Corpuscular Volume 97.6 fL (80.0-94.0); Mean Platelet Volume 10.5 fL (9.5-13.5); Monocytes Absolute Auto 0.5 10^3/uL (0.3-0.8); Monocytes Percent Auto 5.1 % (1.7-12.0); Neutrophils Absolute Auto 6.5 10^3/uL (1.4-6.5); Neutrophils Percent Auto 71.9 % (43.0-75.0); Platelet Count 241 10^3/uL (150-450); Red Blood Count 4.18 10^6/uL (4.70-6.10); Red Cell Distribution Width 13.3 % (11.0-15.0)
[2024-12-16 12:20] LABS: Alanine Aminotransferase 15 U/L (16-63); Albumin Globulin Ratio 0.6; Albumin Level 2.5 g/dL (3.4-5.0); Alkaline Phosphatase 114 U/L (46-116); Anion Gap 10.4; Aspartate Amino Transferase 15 U/L (15-37); BUN Creatinine Ratio 8.1; Bilirubin Total 0.2 mg/dL (0.2-1.0); Calcium 8.8 mg/dL (8.5-10.1); Carbon Dioxide 29.8 mmol/L (21.0-32.0); Chloride 109 mmol/L (98-107); Chol HDL Ratio 3.4; Cholesterol 124 mg/dL (<=200); Estimated GFR (African America 58 (>=60 mL/min/1.73m^2); Estimated GFR (Non-African Ame 47 (>=60 mL/min/1.73m^2); Free T3 1.55 pg/mL (2.18-3.98); Glucose 129 mg/dL (74-106); HDL Cholesterol 37 mg/dL (40-60); Potassium 4.2 mmol/L (3.5-5.1); Sodium 145 mmol/L (136-145); Thyroid Stimulating Hormone 1.669 uIU/mL (0.358-3.740); Total Protein 6.5 g/dL (6.4-8.2); Triglycerides 96 mg/dL (<=150); VLDL CHOLESTEROL 19.2 mg/dL
[2024-12-16 12:26] LABS: Prostate Specific Antigen Scrn 1.55 ng/mL (<=4.00)
[2024-12-16 12:30] LABS: Estimated Average Glucose 154 mg/dL
== END 2024-12-16 10:51 | disposition home or self-care (01) ==
PROVIDERS: PCP Family Medicine; Visit Provider Family Medicine
DX: Z00.00 Encounter for general adult medical examination without abnormal findings (principal); I10 Essential (primary) hypertension; R97.20 Elevated prostate specific antigen [PSA]; E78.5 Hyperlipidemia, unspecified; E11.9 Type 2 diabetes mellitus without complications; R53.83 Other fatigue
CPT/HCPCS: 36415; 80053; 80061; 83036; 84436; 84443; 84481; 85025; G0103

== ENCOUNTER 2025-01-04 04:02 | Outpatient (RCR) | payer MEDICARE, SELFPAY | END 2025-02-02 15:10 | disposition home or self-care (01) | LOC: MM 04:02 | PROVIDERS: PCP Family Medicine; Visit Provider Internal Medicine | DX: Z51.81 Encounter for therapeutic drug level monitoring (principal); Z79.01 Long term (current) use of anticoagulants ==

== ENCOUNTER 2025-02-03 04:51 | Outpatient (RCR) | payer MEDICARE, SELFPAY | END 2025-03-04 15:12 | disposition home or self-care (01) | LOC: MM 04:51 | PROVIDERS: PCP Family Medicine; Visit Provider Internal Medicine | DX: Z51.81 Encounter for therapeutic drug level monitoring (principal); Z79.01 Long term (current) use of anticoagulants ==

== ENCOUNTER 2025-03-06 07:16 | Outpatient (RCR) | payer MEDICARE, SELFPAY | END 2025-03-08 10:33 | disposition home or self-care (01) | LOC: MM 07:16 | PROVIDERS: PCP Family Medicine; Visit Provider Internal Medicine | DX: Z51.81 Encounter for therapeutic drug level monitoring (principal); Z79.01 Long term (current) use of anticoagulants ==

== ENCOUNTER 2025-04-21 08:49 | Outpatient (OUT) | payer MEDICARE, SELFPAY ==
--- NOTE | 2025-04-21 08:56 | XR_ITS ---
The [address] [address] Patient Name: ANDRY PIERRE MRN: [id number] date: 1960 Sex: M Assigned Patient Location: [facility] Current Patient Location: [facility] Accession/Order Number: [id number] Exam Date: 04/21/2025 09:43 Report Date: 04/21/2025 09:47 At the request of: LUIS MCCORMICK MD Procedure: XR shoulder LT 1V CLINICAL DATA: Left shoulder and upper arm pain for the past 2 months. No recent injury however patient has had injections in arm. LEFT HUMERUS - 2 views COMPARISON: None AP and lateral views were obtained. A battery pack overlies the scapula on both images. There is osteopenia. There is no evidence of fracture or dislocation. There are no significant soft tissue abnormalities. XR/XR shoulder LT 1V IMPRESSION: NO ACUTE BONY FINDINGS. LEFT SHOULDER - one view COMPARISON: None AP view of the pelvis was obtained. There is a battery pack which overlies the scapula with the lead extending up the neck. There is osteopenia. There are no acute fractures or dislocation within limits of this single view. There is minor hypertrophy at the acromioclavicular joint and minimal sclerosis of greater tuberosity. No soft tissue abnormalities are seen. IMPRESSION: OSTEOPENIA AND MINOR DEGENERATIVE CHANGE. NO ACUTE BONY FINDINGS WITHIN LIMITS OF THIS SINGLE PROJECTION. Impression dictated by: Alice Perez M.D. 04/21/2025 9:47 AM Dictation Location: [place] [address] Electronically authenticated by: [id number] Y Date: 04/21/2025 09:47
--- NOTE | 2025-04-21 08:56 | XR_ITS ---
The [address] [address] Patient Name: ANDRY PIERRE MRN: [id number] date: 1960 Sex: M Assigned Patient Location: [facility] Current Patient Location: [facility] Accession/Order Number: [id number] Exam Date: 04/21/2025 09:43 Report Date: 04/21/2025 09:47 At the request of: LUIS MCCORMICK MD Procedure: XR shoulder LT 1V CLINICAL DATA: Left shoulder and upper arm pain for the past 2 months. No recent injury however patient has had injections in arm. LEFT HUMERUS - 2 views COMPARISON: None AP and lateral views were obtained. A battery pack overlies the scapula on both images. There is osteopenia. There is no evidence of fracture or dislocation. There are no significant soft tissue abnormalities. XR/XR humerus LT IMPRESSION: NO ACUTE BONY FINDINGS. LEFT SHOULDER - one view COMPARISON: None AP view of the pelvis was obtained. There is a battery pack which overlies the scapula with the lead extending up the neck. There is osteopenia. There are no acute fractures or dislocation within limits of this single view. There is minor hypertrophy at the acromioclavicular joint and minimal sclerosis of greater tuberosity. No soft tissue abnormalities are seen. IMPRESSION: OSTEOPENIA AND MINOR DEGENERATIVE CHANGE. NO ACUTE BONY FINDINGS WITHIN LIMITS OF THIS SINGLE PROJECTION. Impression dictated by: Alice Perez M.D. 04/21/2025 9:47 AM Dictation Location: [place] [address] Electronically authenticated by: [id number] Y Date: 04/21/2025 09:47
== END 2025-04-21 08:50 | disposition home or self-care (01) ==
LOC: RAD 08:49
PROVIDERS: PCP Family Medicine; Visit Provider Family Medicine
DX: M79.602 Pain in left arm (principal); M85.822 Other specified disorders of bone density and structure, left upper arm
CPT/HCPCS: 73020; 73060

== ENCOUNTER 2025-04-25 13:29 | Outpatient (RCR) | payer MEDICARE, MEDICAID, SELFPAY | END 2025-05-06 13:28 | disposition home or self-care (01) | LOC: PT 13:29 | PROVIDERS: PCP Family Medicine; Visit Provider Family Medicine | DX: M79.602 Pain in left arm (principal) | CPT/HCPCS: 97110; 97163; 97535 ==

== ENCOUNTER 2025-05-06 07:14 | Outpatient (OUT) | payer MEDICARE, MEDICAID, SELFPAY ==
--- NOTE | 2025-05-06 | CT_ITS ---
The [address] [address] Patient Name: ANDRY PIERRE MRN: [id number] date: 1960 Sex: M Assigned Patient Location: LAB Current Patient Location: LAB Accession/Order Number: [id number] Exam Date: 05/06/2025 15:56 Report Date: 05/06/2025 16:01 At the request of: LUIS MCCORMICK MD Procedure: CT shoulder LT wo con CT shoulder LT wo con 05/06/2025 8:12 AM SIGNS AND SYMPTOMS: WEAKNESS OF LEFT ARM R29.898 TECHNIQUE: Multidetector CT axial slices of the left shoulder without IV contrast. Multiplanar reformats were performed and viewed on a separate workstation and reviewed to further define anatomy and possible pathology. CT was performed with one or more of the following dose reduction techniques: Automated exposure control, adjustment of the mA and/or kV according to patient size, or use of iterative reconstruction technique. COMPARISON: None. FINDINGS: There is mild narrowing of the glenohumeral joint. Mild hypertrophic changes are noted in the acromioclavicular joint. Ossification is noted along the supraspinatus tendon near the insertion suggesting calcific tendinosis. There is no fracture or dislocation. The visualized left hemithorax is grossly intact. 4 mm calcified granuloma posteriorly in the left lower lobe. There is a stimulator generator along the left chest wall lead extending into the left side of neck. Degenerative changes are noted in the cervical spine. CT/CT shoulder LT wo con IMPRESSION: No fracture or dislocation. Mild degenerative changes are noted in the glenohumeral joint and acromioclavicular joint. 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 Impression dictated by: Ricco Bahena M.D. 05/06/2025 4:01 PM [facility]ictation Location[facility] Electronically authenticated by: [id number] Y Date: 05/06/2025 16:01
--- NOTE | 2025-05-06 | CT_ITS ---
The [address] [address] Patient Name: ANDRY PIERRE MRN: [id number] date: 1960 Sex: M Assigned Patient Location: LAB Current Patient Location: LAB Accession/Order Number: [id number] Exam Date: 05/06/2025 16:13 Report Date: 05/06/2025 16:17 At the request of: LUIS MCCORMICK MD Procedure: CT head/brain wo/w con CT BRAIN WITHOUT AND WITH CONTRAST: CLINICAL HISTORY: WEAKNESS OF LEFT ARM R29.898 COMPARISON: March 24, 2024 TECHNIQUE: Contiguous axial unenhanced images were obtained through the brain. This CT exam was performed using one or more following dose reduction techniques: Automated exposure control, adjustment of the mA and/or kV according to patient size, or use of iterative reconstruction technique. FINDINGS: There is artifact arising from left-sided deep brain stimulator. There is no evidence of midline shift, intra or extra-axial fluid collection, hemorrhage or CT evidence of acute large vascular distribution stroke. Intracranial vascular calcifications. No evidence of abnormal postcontrast enhancement. Cataract surgery. Lhzf-ab-sawlwaos paranasal sinus mucosal thickening. Mastoids are clear. The surrounding soft tissues are normal. CT/CT head/brain wo/w con IMPRESSION: NO ACUTE INTRACRANIAL ABNORMALITY. No evidence abnormal postcontrast enhancement. Impression dictated by: Dayday Shah M.D. 05/06/2025 4:17 PM Dictation Location: [place] [address] Electronically authenticated by: [id number] Y Date: 05/06/2025 16:17
--- NOTE | 2025-05-06 | CT_ITS ---
The [address] [address] Patient Name: ANDRY PIERRE MRN: [id number] date: 1960 Sex: M Assigned Patient Location: LAB Current Patient Location: LAB Accession/Order Number: [id number] Exam Date: 05/06/2025 16:01 Report Date: 05/06/2025 16:08 At the request of: LUIS MCCORMICK MD Procedure: CT soft tissue neck wo con CT soft tissue neck wo con 05/06/2025 8:11 AM SIGN AND SYMPTOMS: ^WEAKNESS OF LEFT ARM R29.898 TECHNIQUE: Multi detector CT axial slices of the cervical spine were obtained without IV contrast. Volumetric acquisition sagittal, coronal, and 3-D reconstructions were performed and reviewed. CT was performed with one or more of the following dose reduction techniques: Automated exposure control, adjustment of the mA and/or kV according to patient size, or use of iterative reconstruction technique. COMPARISON: None. FINDINGS: There is preservation of the vertebral body heights. There is moderate disc height loss at C2-C3 and C3-C4. There is anterior osteophyte formation throughout. No fractures or dislocations are seen. The alignment of the cervical spine is normal. The craniocervical junction is within normal limits. Degenerative changes are noted in the atlantoaxial joint. The prevertebral soft tissues are within normal limits. The paraspinous soft tissues are within normal limits. The lung apices are unremarkable. The callosal thickening is noted in the right maxillary sinus. Atherosclerotic changes are noted in the carotid bifurcations. There is a deep brain stimulator lead along the left neck partly visualized along the thalamus on the left. CT/CT soft tissue neck wo con IMPRESSION: No fracture or dislocation. Degenerative changes are noted in the cervical spine as above. Impression dictated by: Ricco Bahena M.D. 05/06/2025 4:08 PM Dictation Location: [place] [address] Electronically authenticated by: [id number] Y Date: 05/06/2025 16:08
--- OUTSIDE RECORDS SUMMARY | 2025-05-06 07:18 | XMS_ITS | CCD ---
Author Organization [facility] Care Team Providers Care Welfare Manager Name Role Phone Say Mccormick MD Primary Care Provider [phone] Say Mccormick MD Primary Care Provider [phone] Jonn GEORGE, Ehab Ahmed Unavailable Sanjay Dooley Unavailable JESUS RUSS Attending Unavailable JESUS RUSS Admitting Unavailable SELF, REFERRED Referring Unavailable SAY MCCORMICK Primary Care Unavailable AMY REMY Surgeon Unavailable [place] Procedure Practitioner Unavailab le [place] Procedure Practitioner Unavailab DAVON Rivera Surgeon Unavailable [...] HIDALGO Consulting Unavailable LOS BAIRES Consulting Unavailable SOFYA HIDALGO Admitting Unavailable DR SAY [...] Attending Unavailable ARIS, JODIE Consulting Unavailable SURI BROWNLEE Attending Unavailable SURI BROWNLEE Admitting Unavailable ARIS, JODIE Primary Care Unavailable SURI BROWNLEE Consulting Unavailable Lm GEORGE, Say Licona Primary Care Provider [phone] Jonn GEORGE, Súal med Unavailable Marlena GEORGE, Ramon Morales Attending Unavailable HOY, SAY M Primary Care Unavailable HOY, SAY M Referring Unavailable HOY, SAY M Primary Care Unavailable HOY, SAY M Referring Unavailable HOY, SAY M Primary Care Unavailable HOY, SAY M Referring Unavailable HOY, SAY M Primary Care Unavailable HOY, SAY M Primary Care Unavailable HENNIGS, SHANE L Referring Unavailable HOY, SAY M Primary Care Unavailable OBED FLORIAN Attending Unavailable HENLISA, SHANE L Referring Unavailable HOY, SAY M Primary Care Unavailable HENNIGS, SHANE L Referring Unavailable HOY, SAY M Primary Care Unavailable SHANE PARHAM Attending Unavailable Say Mccormick MD Primary Care Provider [phone] YUDITH MARTINEZ Referring Unavailable HOY, SAY M Primary Care Unavailable DIOGENES RODRIGUEZ Referring Unavailable HOY, SAY M Primary Care Unavailable HOY, SAY M Primary Care Unavailable CHARLEE ARCE Referring Unavailable HOY, SAY M Primary Care Unavailable SEVERIANO MORENO Consulting Unavailable JACKIE RIVAS Admitting Unavailable LORI LEBLANC Attending Unavailable CHARO SLAUGHTER Consulting Unavailable MARLON BARLOW Consulting Unavailable JEFFERY CHRISTINE Consulting Unavailable Say Mccormick MD Primary Care Provider [phone] JU CERVANTES Attending Unavailab le HOY, SAY M Referring Unavailable NATALIAIANIJU Referring Unavailab le JU CERVANTES M Referring Unavailab YOSSI Palumbo Attending Unavailable JU CERVANTES Attending Unavailab le JU CERVANTES Attending Unavailab YOSSI Palumbo Attending Unavailable YOSSI BOWER Attending Unavailable YOSSI BOWER Attending Unavailable Andry LIU Attending Unavailable Say Mccormick MD Primary Care Provider [phone] HOY, SAY M Referring Unavailable HOY, SAY M Primary Care Unavailable HOY, SAY M Primary Care Unavailable TIFFANIE LEIGH Referring Unavailable DIOGENES RODRIGUEZ Referring Unavailable RICHARD ARVIZU Attending Unavailable DIOGENES RODRIGUEZ Referring Unavailable DIOGENES RODRIGUEZ Referring Unavailable DIOGENES RODRIGUEZ Attending Unavailable LEN CRESPO Attending Unavailable LAURA ROSADO Attending Unavailable GABINO, RICHARD Attending Unavailable GABINO, RICHARD Admitting Unavailable GABINO, RICHARD Attending Unavailable DIOGENES RODRIGUEZ Referring Unavailable GABINO, RICHARD Referring Unavailable MARIO VAN Attending Unavailable TIFFANIE LEIGH Referring Unavailable GABINO, RICHARD Referring Unavailable GABINO, RICHARD Referring Unavailable Allergies Allergy Classification Reported Allergen(s) Allergy Type Date of Onset Reaction(s) Facility (20 sources) beta-Blocking agent; Translations: [BETA-BLOCKERS (BETA-ADRENERGIC BLOCKING AGTS)] Drug Allergy 07-24-20 11 Itching, Other: See Comments [facility] (17 sources) diazePAM; Translations: [DIAZEPAM] Drug Allergy 03-03-20 08 Unknown [facility] (20 sources) gabapentin; Translations: [GABAPENTIN] Drug Allergy 11-25-19 09 Other: See Comments, Unknown, Other, Other (See Comments) [facility] (20 sources) hydrALAZINE; Translations: [HYDRALAZINE] Drug Allergy 05-19-20 13 Unknown [facility] (3 sources) Adrenergic Beta-Antagonists Drug allergy Unknown [facility] Other (2 sources) Adrenergic Beta-Antagonists Drug allergy (disorder) 05-29-20 16 [facility] Rep[facility] (5 sources) diazePAM; Translations: [Valium] Drug Allergy 05-19-20 13 [facility] (1 source) gabapentin Drug Allergy 01-23-20 19 [facility] (2 sources) gabapentin; Translations: [Neurontin] Drug Allergy 05-29-20 16 [facility] Repository (6 sources) beta-Blocking agent Drug Allergy 07-24-20 11 Itching, Other: See Comments, Headache [facility] (2 sources) Neuromuscular Blocking Agents Propensity to adverse reactions to drug 05-19-20 13 [facility] (10 sources) Diazepam Allergy to substance 03-03-20 08 Other, Unknown [facility] (1 source) Adrenergic Beta-Antagonists; Translations: [beta blockers] Propensity to adverse reactions (disorder) [facility] Repository NEGATED: Highlighted row has been ruled out! (2 sources) Other Propensity to adverse reactions 07-29-20 13 Nausea And Vomiting [facility] Medications Current Medications Medication Drug Class(es) Dates Sig (Normalized) Sig (Original) Acetaminophen (1 source) Start: 11-29-2023 acetaminophen (TYLENOL) tablet 650 mg amitriptyline hydrochloride 25 mg oral tablet (10 sources) Tricyclic Antidepressant Start: 12-31-2023 take 1 tablet by mouth at bedtime amitriptyline (Elavil) 25 MG tablet Take 25 mg by mouth at bedtime 12/31/2023 Active amLODIPine 5 mg oral tablet (3 sources) Dihydropyridine Calcium Channel Noah End: 01-21-2022 take 1 tablet by mouth once daily amLODIPine (NORVASC) 5 mg tablet Take 5 mg by mouth daily. Active Comment on above: Take 5 mg by mouth o nce daily. apixaban 5 mg oral tablet (10 sources) Factor Xa Inhibitor Start: 02-12-2024 take [...] day Active baclofen 10 mg oral tablet (10 sources) gamma-Aminobutyric Acid-ergic Agonist take 1 tablet by mouth in the morning, then take 1 tablet by mouth in the evening, then take 1 tablet by mouth at bedtime baclofen (Lioresal) 10 MG tablet Take 10 mg by mouth in the morning and 10 mg in the evening and 10 mg before bedtime. Active biotin 10 mg oral capsule (7 sources) Start: 05-28-2024 End: 08-26-2024 take 1 capsule by mouth in the morning biotin 10 MG capsule Indications: CIDP (chronic inflammatory demyelinating polyneuropathy) ([facility]) Take 1 capsule (10 mg) by mouth in the morning and in the evening 60 capsule 11 06/21/2024 07/21/2024 Active Blood Glucose Monitoring Suppl (Accu-Chek Guide Me) w/Device kit (10 sources) Start: 02-21-2023 Blood Glucose Monitoring Suppl (Accu-Chek Guide Me) w/Device kit USE DIRECTED DAILY 02/21/2023 Active candesartan cilexetil 8 mg oral tablet (20 sources) Angiotensin 2 Receptor Noah take 1 tablet by mouth once daily candesartan (Atacand) 8 MG tablet Take 8 mg by mouth Daily Active Comment on above: Take 8 mg by mouth o nce daily. cetirizine hydrochloride 10 mg oral tablet (16 sources) Histamine-1 Receptor Antagonist Start: 04-01-2023 take [...] End: 12-01-2023 cloNIDine (CATAPRES) tablet 0.1 mg Start: 12-17-2018 take 1 tablet by kristen th twice daily cloNIDine (CATAPRES) 0.2 mg tablet Take 0.2 mg by mouth 2 (two) times a day. 12/17/2018 Active End: 12-02-2023 take 0.5 tablet by mouth twice daily cloNIDine (CATAPRES) 0.1 MG tablet Take 0.5 tablets by mouth 2 times daily 0 12/02/2023 Discontinued (LIST CLEANUP) take 1 tablet by kristen th every eight hours cloNIDine HCl 0.2 MG 1 tablet Orally THREE TIMES A DAY Active Comment on above: Take 0.2 mg by mouth twice daily. Take 0.2 mg by mouth twice daily. 0.2 in AM, 0.1 in PM cyclobenzaprine hydrochloride 10 mg oral tablet (1 source) Muscle Relaxant Start: cyclobenzaprine (FLEXERIL) tablet 10 mg cyproheptadine hydrochloride 4 mg oral tablet (6 sources) Start: End: take 0.5 tablet by mouth once daily at bedtime cyproheptadine (Periactin) 4 MG tablet Indications: CIDP (chronic inflammatory demyelinating polyneuropathy) (CMS/HCC) Take 0.5 tablets (2 mg) by mouth at bedtime Start night prior to IVIG infusion and take daily for 7 days after 45 tablet 04/28/2024 07/27/2024 Active dexamethasone 2 mg oral tablet (18 sources) Corticosteroid Start: End: take 1 tablet by mouth in the morning dexAMETHasone (Decadron) 2 MG tablet Indications: CIDP (chronic inflammatory demyelinating polyneuropathy) (CMS/HCC) Take 1 tablet (2 mg) by mouth in the morning and 1 tablet (2 mg) in the evening. Take with meals. Do all this for 10 days. 20 tablet 1 06/21/2024 07/01/2024 Active DULoxetine 20 mg delayed release oral capsule (2 sources) Serotonin and Norepinephrine Reuptake Inhibitor Start: take 1 capsule by mouth once daily DULoxetine (CYMBALTA) 20 MG extended release capsule Take 1 capsule by mouth daily 30 capsule 3 12/05/2023 Active empagliflozin 25 mg oral tablet (13 sources) Sodium-Glucose Cotransporter 2 Inhibitor Start: take [...] ml immunoglobulin g, human 100 mg/ml injection (10 sources) Human Immunoglobulin G Start: 02-27-2024 Gamunex -C 40 GM/400ML solution 02/27/2024 Active 3 ml insulin degludec 100 unt/ml pen injector (13 sources) Insulin Analog Start: 11-05-2023 Tresiba FlexTo [...] ml insulin detemir 100 unt/ml pen injector (10 sources) Insulin Analog Start: 01-11-2019 LEVEMIR FLEXTOUCH U-100 INSULN 100 unit/mL (3 mL) insulin pen Inject 56 Units under the skin every morning before breakfast. 01/11/2019 Active Comment on above: Inject 56 Units subc utaneously every morning. insulin glargine 100 unt/ml injectable solution (1 source) Insulin Analog Start: 12-01-2023 insulin glargine (LANTUS) injection vial 2 Units insulin lispro 100 unt/ml injectable solution (2 sources) Insulin Analog Start: 11-30-2023 insulin lispro (HUMALOG) injection vial 0-4 Units labetalol hydrochloride 5 mg/ml injectable solution (1 source) beta-Adrenergic Noah Start: 11-30-2023 labetalol (NORMODYNE;TRANDA TE) injection 10 mg levalbuterol 0.417 mg/ml inhalation solution (1 source) beta2-Adrenergic Agonist levalbuterol (XOPENEX) 1.25 mg/3 mL nebulizer solution Inhale 1 ampule by nebulization every 4 (four) hours as needed for wheezing. Active LEVEMIR FLEXTOUCH 100 UNIT/ ML (3 sources) LEVEMIR FLEXTOUC H 100 UNIT/ ML as directed Subcutaneous 35 UNITS TWICE A DAY Active lidocaine 0.05 mg/mg medicated patch (4 sources) Antiarrhythmic, Amide Local Anesthetic Start: 10-27-2022 apply 1 dose transdermal route once daily, then apply 1 dose transdermal route every twelve hours lidocaine (LIDODERM) 5 % Place 1 patch on the skin daily. Remove & Discard patch within 12 hours or as directed by MD Maat patch 10/27/2022 Active Start: 10-27-2022 apply 1 dose transde rmal route every twenty-four hours lidocaine (LIDODERM) 5 % Place 1 patch onto the skin every 24 hours 0 10/27/2022 Active Comment on above: Apply 1 Patch as dir ected every 24 hours. linaclotide 0.145 mg oral capsule (10 sources) Guanylate Cyclase-C Agonist take 1 capsule by mouth before mealtime Linzess 145 MCG capsule Take 145 mcg by mouth in the morning. Take before meals. Active 50 ml magnesium sulfate 40 mg/ml injection (1 source) Start: 2,000 mg, IntraVENous, at 25 mL/hr, Administer over 2 Hours, PRN, Other, Magnesium Replacement, Starting on 11/29/23 at 2011 [facility] Replacement Action 1.4-1.6 mg/dL &a mp;nbsp; 2,000 mg Total Dose Given as 1,000 mg IVPB x 2 doses or 2,000 mg IVPB x 1 dose &nb sp; &nbs p; &nbsp ; & nbsp; &nbs p;1.0-1.3 mg/dL 4,000 mg Total Dose &nb sp; &nbs p; &nbsp ; Given as 1,000 mg IVPB x 4 doses or 2,000 mg IVPB x 2 doses Le ss than 1.0 mg/dL CALL PHYSICIAN and give &nb sp; &nbs p; &nbsp ; & nbsp; 4,000 mg Total Dose &nb sp; &nbs p; &nbsp ; & nbsp; Given as 1,000 mg IVPB x 4 doses or 2,000 mg IVPB x 2 doses &n bsp;Infuse at 1,000 mg/hr Repeat Mag level next AM Protocol not for use in Patients with CrCl less than 30ml/min meclizine hydrochloride 25 mg oral tablet (4 sources) Antiemetic take 25 mg by mouth once daily as needed meclizine HCl (MECLIZINE ORAL) Take 25 mg by mouth daily as needed. Active take 1 tablet by kristen th every four hours as needed Meclizine HCl 25 MG 1 tablet as needed Orally EVERY 4 HOURS PRN Not-Taking metFORMIN hydrochloride 500 mg oral tablet (14 sources) Biguanide Start: 04-01-2023 End: 12-02-2023 take 1 tablet by mouth in the morning metFORMIN (Glucophage) 500 MG tablet Take 1 tablet by mouth in the morning and 1 tablet before bedtime. 04/01/2023 Active Comment on above: Take 1 tablet by kristen th two times a day. metoprolol tartrate 50 mg oral tablet (10 sources) beta-Adrenergic Noah Start: 12-25-2023 take 1 [...] Q-tip naloxone hydrochloride 40 mg/ml nasal spray (10 sources) Opioid Antagonist Start: 01-12-2024 naloxone (Narcan) 4 mg/0.1 mL nasal spray PLEASE SEE ATTACHED FOR DETAILED DIRECTIONS 01/12/2024 Active NIFEdipine 90 mg osmotic 24 hr extended release oral tablet (20 sources) Dihydropyridine Calcium Channel Noah Start: 01-13-2022 [...] by mouth once daily ondansetron 4 mg oral tablet (14 sources) Serotonin-3 Receptor Antagonist Start: 05-21-20 End: 06-20-20 24 take 1 tablet by mouth every eight hours for nausea ondansetron (Zofran) 4 MG tablet Indications: CIDP (chronic inflammatory demyelinating polyneuropathy) (CMS/HCC) Take 1 tablet (4 mg) by mouth every 8 (eight) hours if needed for nausea or vomiting 30 tablet 1 05/21/2024 06/20/2024 Active Start: 03-23-2024 take 1 tablet by kristen th every eight hours as needed for nausea ondansetron ODT (Zofran-ODT) 4 MG disintegrating tablet Take 4 mg by mouth every 8 (eight) hours if needed for nausea 03/23/2024 Active Start: 10-27-2022 take 1 tablet by kristen th every eight hours as needed for nausea ondansetron ODT (ZOFRAN ODT) 4 mg disintegrating tablet Dissolve 1 tablet (4 mg total) on tongue every 8 (eight) hours as needed for nausea for up to 10 doses. 10 tablet 10/27/2022 Active ondansetron (ZOFRAN-ODT) disintegrating tablet 4 mg (1 source) Start: 11-29-2023 ondansetron (ZOFRAN-ODT) disintegrating tablet 4 mg OXcarbazepine 150 mg oral tablet (12 sources) Anti-epilept ic Agent Start: 07-30-2024 End: 10-28-2024 take 0.5 tablet by mouth in the [...] chloride 10 mg extended release oral tablet (20 sources) Cholinergic Muscarinic Antagonist Start: 11-24-2021 take 1 tablet by mouth once daily oxybutynin (DITROPAN-XL) 10 MG extended release tablet TAKE 1 TABLET BY MOUTH EVERY DAY 0 11/24/2021 Active Comment on above: Take 10 mg by mouth once daily. oxyCODONE hydrochloride 10 mg oral tablet (10 sources) Opioid Agonist Start: 02-26-2024 take 1 tablet by mouth every four hours as needed oxyCODONE (Roxicodone) 10 MG immediate release tablet TAKE 1 TO 2 TABLETS BY MOUTH EVERY 4 HOURS NEEDED FOR PAIN 02/26/2024 Active Potassium Chloride (20 sources) Start: 11-29-2023 potassium chloride (KLOR-CON M) [...] by mouth once daily. 0 11/08/2019 Active potassium chlori de (K-DUR,KLOR-CON) 10 MEQ CR tablet Take 20 mEq by mouth 2 (two) times a day. Active take 1 tablet by kristen every twelve hours Potassium Chloride ER 20 [...] by mouth once daily for 4 days thiamine 100 mg oral tablet (7 sources) Start: 05-28-2024 End: 05-28-2025 take 1 tablet by mouth in the morning thiamine (Vitamin B-1) 100 MG tablet Indications: CIDP (chronic inflammatory demyelinating polyneuropathy) (CMS/HCC) Take 1 tablet (100 mg) by mouth in the morning and in the evening 60 tablet 11 06/21/2024 07/21/2024 Active topiramate 200 mg oral tablet (20 sources) Start: 01-07-2024 End: 01-06-2025 take 1 [...] Start: 08-15-2015 take 2 tablets by mo ut twice daily, then take 2 tablets by mouth twice daily topiramate (TOPAMAX) 50 MG tablet Indications: Medication refill Take 2 tablets by mouth 2 times daily take 2 tablets by mouth twice a day 120 tablet 3 08/15/2015 Active take 1 tablet by kristen th twice daily topiramate (TOPAMAX) 100 mg tablet Take 100 mg by mouth 2 (two) times a day. Active Comment on above: Take 100 mg by mouth twice daily. 7 actuat umeclidinium 0.0625 mg/actuat dry powder inhaler (18 sources) Anticholinergic Start: 11-05-2023 Incruse Ellipta 62.5 MCG/ACT aerosol powder 11/05/2023 Active Start: 11-05-2023 INCRUSE ELLIPT A 62.5 mcg/actuation inhaler take 1 puff(s) by in halation once daily umeclidinium (INCRUSE ELLIPTA) 62.5 mcg/actuation blister with device Inhale 1 puff daily. Active Comment on above: Inhale 1 Puff [...] the other day 0 10/19/2018 Active take 1 tablet by kristen once daily, then take 7.5 mg by mouth every other day warfarin (COUMADIN) 10 mg tablet Take 10 mg by mouth daily. TAKE EVERY OTHER DAY. ALTERNATE WITH 7.5MG COUMADIN Active take 1 tablet by kristen th once daily warfarin (COUMADIN) 7.5 mg tablet Take 7.5 mg by mouth daily. Friday Active warfarin (COUMAD IN) 5 MG tablet Take 1 tablet by mouth 0 Active take 2 tablets by mo [facility] once daily Warfarin 5mg 5 mg 2 [...] by mouth. atorvastatin 40 mg oral tablet (20 sources) HMG-CoA Reductase Inhibitor Start: 11-08-19 20 take 1 tablet by mouth once daily atorvastatin (LIPITOR) 10 mg tablet Take 1 tablet by mouth once daily. 90 tablet 1 11/08/2019 Active Start: 09-26-2015 take 40 mg by mouth once daily 40 mg, Oral, DAILY, First dose on 11/30/23 at 2100, Until Discontinued Comment on above: Take 1 tablet by kristen once daily. carbidopa 10 mg / levodopa [...] on above: Take 1 capsule by [facility] four times daily. furosemide 40 mg oral tablet (20 sources) Loop Diuretic Start: 11-08-19 End: 12-02-19 take 1 tablet by mouth twice daily furosemide (LASIX) 40 MG tablet TAKE 1 TABLET BY MOUTH TWICE A DAY 0 11/24/2021 12/02/2023 Discontinued (LIST CLEANUP) Comment on above: Take 1 tablet by [facility] twice daily. 250 ml glucose 50 mg/ml [...] PRN Not-Taking indomethacin 50 mg oral capsule (19 sources) Nonsteroidal Anti-inflammatory Drug Start: 05-12-20 End: [...] needed for pain TAKE 1 CAPSULE BY [facility] THREE TIMES A DAY NEEDED FOR PAIN WITH FOOD OR MILK 30 montelukast 10 mg oral tablet (20 sources) Leukotriene Receptor Antagonist Start: 11-28-19 take 10 mg by mouth once daily 10 mg, Oral, DAILY, First dose on 11/30/23 at 0900, Until Discontinued Comment on above: Take 10 mg by mouth daily at bedtime. pantoprazole 40 mg delayed release oral tablet (20 sources) Proton Pump Inhibitor Start: 12-02-19 take 40 mg by mouth once daily 40 mg, Oral, DAILY, First dose on 11/30/23 at 0900, Until Discontinued Do not crush or break. Comment on above: Take 40 mg by mouth once daily. polyethylene glycol 3350 22424 mg powder for oral solution (1 source) [...] capsules traMADol hydrochloride 50 mg oral tablet (15 sources) Opioid Agonist Start: 6 End: 4 take 1 tablet by mouth every six hours as needed for pain traMADol (ULTRAM) 50 MG tablet Take 1 tablet by mouth every 6 hours as needed for Pain 120 tablet 0 05/16/2016 12/02/2023 Discontinued (LIST CLEANUP) take 2 tablets by mouth twice da faheem traMADol (ULTRAM) 50 mg tablet Take 100 mg by mouth 2 (two) times daily at 0800 and 1500. 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] Onset: 8 01-22-2024 Chronic Anxiety disorders (10 sources) Anxiety state; Translations: [Generalized anxiety disorder] Onset: 3 01-22-2024 Chronic Asthma (13 sources) Asthma; Translations: [Unspecified asthma, uncomplicated] Onset: 2 12-01-2014 Chronic Cardiac and circulatory congenital anomalies (13 sources) Congenital heart disease; Translations: [Congenital malformation of heart, unspecified] Onset: 2 12-01-2014 Chronic Chronic kidney disease (20 sources) Chronic kidney disease stage 3; Translations: [Stage 3 chronic kidney disease, unspecified whether stage 3a or 3b CKD (HCC)] Onset: 4 Chronic Chronic kidney disease (5 sources) Chronic kidney disease; Translations: [Chronic kidney disease, stage 3 unspecified] Onset: 2 Resolved: 2 Chronic obstructive pulmonary disease and bronchiectasis (20 sources) Chronic obstructive lung disease; Translations: [Chronic obstructive pulmonary disease, unspecified] Onset: 4 Chronic Congestive heart failure; nonhypertensive (20 sources) Congestive heart failure; Translations: [Heart failure, unspecified] Onset: 9 Chronic Diabetes mellitus with complications (20 sources) Type 2 diabetes mellitus; Translations: [Type 2 diabetes mellitus with other specified complication] Onset: 4 Resolved: 2 Chronic Diabetes mellitus without complication (20 sources) Diabetes mellitus; Translations: [Type 2 diabetes mellitus without complications] Onset: 0 11-25-2008 Chronic Disorders of lipid metabolism (20 sources) Pure hypercholesterolemia; Translations: [Pure hypercholesterolemia, unspecified] Onset: 2 Resolved: 2 Chronic Esophageal disorders (20 sources) Gastroesophageal reflux disease; Translations: [Gastro-esophageal reflux disease without esophagitis] Onset: 2 11-25-2008 Chronic Essential hypertension (20 sources) Essential hypertension; Translations: [Essential (primary) hypertension] Onset: 4 Resolved: 2 07-18-2016 Chronic Genitourinary symptoms and ill-defined conditions (11 sources) Urge incontinence of urine; Translations: [Urge incontinence] Onset: 9 01-22-2024 Chronic Gout and other crystal arthropathies (12 sources) Gout; Translations: [Gout, unspecified] Onset: 3 [...] D deficiency, unspecified] Onset: 4 Chronic Osteoarthritis (20 sources) Bilateral osteoarthritis of knees; Translations: [Bilateral primary osteoarthritis of knee] Onset: 4 08-18-2014 Chronic Other acquired deformities (10 sources) Equinus contracture of the ankle; Translations: [Contracture, right ankle] Onset: 4 01-22-2024 Chronic Other aftercare (5 sources) Encounter for therapeutic drug level monitoring; Translations: [ENC THERAPEUTC DRUG LEVL MONITORING] Onset: 3 Episodic Other aftercare (1 source) winter intern (current) use of anticoagulants; Translations: [CORRECTION CURRNT USE ANTICOAGULANTS] Onset: 3 Episodic Other aftercare (1 source) jail (current) use of insulin; Translations: [winter intern (current) use of insulin] Onset: 4 Episodic Other and ill-defined cerebrovascular disease (20 sources) Cerebrovascular disease; Translations: [Other cerebrovascular disease] Onset: 2 11-25-2008 Chronic Other and ill-defined heart disease (10 sources) Diastolic dysfunction; Translations: [Other ill-defined heart diseases] Onset: 0 01-22-2024 Chronic Other connective tissue disease (1 source) Other symptoms and signs involving the musculoskeletal system; Translations: [Other symptoms and signs involving the musculoskeletal system] Onset: 4 Episodic Other connective tissue disease (1 source) Facial weakness; Translations: [Facial weakness] Onset: 4 Episodic Other gastrointestinal disorders (12 sources) Irritable bowel syndrome; Translations: [Irritable bowel syndrome without diarrhea] Onset: 4 03-28-2014 Chronic Other hereditary and degenerative nervous system conditions (19 sources) Shuddering attacks; Translations: [Benign shuddering attacks] Onset: 2 11-25-2008 Chronic Other hereditary and degenerative nervous system conditions (6 sources) Essential tremor; Translations: [Essential tremor] Onset: 4 Chronic Other hereditary and degenerative nervous system conditions (10 sources) Intention tremor; Translations: [Other specified forms of tremor] Onset: 4 01-07-2024 Chronic Other hereditary and degenerative nervous system conditions (1 source) Essential tremor; Translations: [Essential tremor] Onset: 5 Chronic Other nervous system disorders (1 source) Carpal tunnel syndrome, right upper limb; Translations: [Carpal tunnel syndrome, right upper limb] Onset: 4 Chronic Other nervous system disorders (1 source) Lesion of ulnar nerve, right upper limb; Translations: [Lesion of ulnar nerve, right upper limb] Onset: 4 Chronic Other nervous system disorders (12 sources) Patient encounter status; Translations: [Other chronic pain] Onset: 4 01-20-2015 Chronic Other nervous system disorders (1 source) Polyneuropathy, unspecified; Translations: [Polyneuropathy, unspecified] Onset: 4 Chronic Other nervous system disorders (12 sources) Disorder of brain; Translations: [Encephalopathy, unspecified] Onset: 4 12-02-2023 Chronic Other nervous system disorders (2 sources) Neuropathy; Translations: [Polyneuropathy, unspecified] Onset: 4 12-03-2023 Chronic Other nervous system disorders (16 sources) Chronic inflammatory demyelinating polyradiculoneuropathy ; 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] Onset: 4 01-22-2024 Chronic Other nervous system disorders (2 sources) Chronic inflammatory demyelinating polyneuritis; 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] Onset: 5 Chronic Other nervous system disorders (11 sources) Tremor; Translations: [Tremor, unspecified] Onset: 1 07-24-2011 Episodic Other nervous system disorders (1 source) Other abnormalities of gait and mobility; Translations: [Other abnormalities of gait and mobility] Onset: 4 Episodic Other nutritional; endocrine; and metabolic disorders (20 sources) Body mass index 40+ - severely obese; Translations: [Morbid (severe) obesity due to excess calories] Onset: 9 10-09-2018 Chronic Other nutritional; endocrine; and metabolic disorders (16 sources) Morbid obesity; Translations: [Morbid (severe) obesity due to excess calories] Onset: 4 08-18-2014 Chronic Other nutritional; endocrine; and metabolic disorders (2 sources) Obesity; Translations: [Obesity, unspecified] 03-28-2014 Chronic Other upper respiratory disease (12 sources) Tracheostomy present; Translations: [Tracheostomy status] Onset: 1 03-28-2014 Chronic Other upper respiratory disease (9 sources) Other diseases of pharynx; Translations: [Other diseases of pharynx, not elsewhere classified] 11-25-2008 Episodic Parkinson`s disease (20 sources) Parkinson's disease; Translations: [Parkinson's disease] Onset: 5 01-21-2022 Chronic Phlebitis; thrombophlebitis and thromboembolism (19 sources) 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; Translations: [Chronic embolism and thrombosis of unspecified deep veins of proximal lower extremity, bilateral] Onset: 8 08-06-2018 Chronic Residual codes; unclassified (20 sources) Obstructive sleep apnea syndrome; Translations: [Obstructive sleep apnea (adult) (pediatric)] Onset: 4 Chronic Residual codes; unclassified (10 sources) Hypersomnia with sleep apnea; Translations: [Hypersomnia, [...] [Altered mental status, unspecified] Onset: 4 Episodic Spondylosis; intervertebral disc disorders; other back problems (20 sources) Degeneration of lumbar intervertebral disc; Translations: [Other intervertebral disc degeneration, lumbar region] Onset: 4 Resolved: 0 08-18-2014 Chronic Substance-related disorders (20 sources) Cocaine dependence in remission; Translations: [Cocaine [...] Unclassified (1 source) Urinary Problem Onset: 4 Unclassified (2 sources) Consult; Translations: [Consult] Onset: 4 Past or Other Problems Problem Classification Problem Date Documented Da te Episodic/Chronic Abdominal pain (14 sources) Unspecified abdominal pain; Translations: [Abdominal pain] Onset: 01-07-2023 Episodic Acute and unspecified renal failure (12 sources) Acute renal failure syndrome; Translations: [Acute kidney failure, unspecified] Onset: 03-15-2014 03-02-2024 Episodic Biliary tract disease (20 sources) Common bile duct calculus; Translations: [Calculus of bile duct without cholangitis or cholecystitis without obstruction] Onset: 01-22-2024 01-22-2024 Episodic Blindness and vision defects (20 sources) Diplopia; Translations: [Disorder of refraction AND/OR accommodation] Onset: 07-17-2023 01-22-2024 Episodic Cardiac dysrhythmias (2 sources) Palpitations; Translations: [Palpitations] Onset: 05-18-2024 Episodic Cataract (2 sources) Age-related nuclear cataract of left eye; Translations: [Age-related nuclear cataract, left eye] Onset: 07-20-2019 Resolved: 08-17-2019 07-20-2019 Chronic Coagulation and hemorrhagic disorders (2 sources) Spontaneous ecchymoses; Translations: [Spontaneous ecchymoses] Onset: 09-20-2024 Episodic E Codes: Fall (10 sources) Fall; Translations: [Unspecified fall, initial encounter] Onset: 03-09-2024 03-09-2024 Episodic Fluid and electrolyte disorders (20 sources) Hypervolemia; Translations: [Fluid overload, unspecified] Onset: 03-15-2014 10-08-2018 Episodic Genitourinary symptoms and ill-defined conditions (11 sources) Kg hematuria; Translations: [Gross hematuria] Onset: 12-01-2018 01-22-2024 Episodic Immunizations and screening for infectious disease (13 sources) 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; Translations: [Carrier or suspected carrier of Methicillin resistant Staphylococcus aureus] Onset: 07-18-2015 Episodic Malaise and fatigue (18 sources) Other fatigue; Translations: [Asthenia] Onset: 03-15-2014 11-06-2023 Episodic Nonspecific chest pain (3 sources) Chest pain, unspecified; Translations: [Other chest pain] Onset: 05-27-2022 Episodic Other acquired deformities (2 sources) Spondylolysis, lumbar region; Translations: [Spondylolysis, lumbar region] Onset: 06-02-2024 Episodic Other aftercare (2 sources) Patient encounter status; Translations: [Encounter for therapeutic drug level monitoring] Onset: 01-25-2014 08-18-2014 Episodic Other aftercare (10 sources) Long-term current use of anticoagulant; Translations: [jail (current) use of anticoagulants] Onset: 01-22-2024 01-22-2024 Episodic Other circulatory disease (4 sources) Personal history of transient ischemic attack (TIA), and cerebral infarction without residual deficits; Translations: [PERS HX TIA AND CI NO RESID DEFICIT] Onset: 05-29-2022 Episodic Other connective tissue disease (12 sources) Cramp; Translations: [Cramp and spasm] Onset: 03-15-2014 03-02-2024 Episodic Other connective tissue disease (12 sources) Recurrent falls ; Translations: [Repeated falls] Onset: 11-30-2023 11-30-2023 Episodic Other connective tissue disease (10 sources) Spasm of cervical paraspinous muscle; Translations: [Other muscle spasm] Onset: 03-24-2024 03-24-2024 Episodic Other diseases of kidney and ureters (12 sources) Kidney disease; Translations: [Disorder of kidney and ureter, unspecified] Onset: 01-29-2024 12-01-2014 Episodic Other gastrointestinal disorders (13 sources) Dysphagia; Translations: [Dysphagia, unspecified] Onset: 11-28-2014 11-28-2014 Episodic Other gastrointestinal disorders (10 sources) History of hematemesis; Translations: [Personal history of other diseases of the digestive system] Onset: 01-22-2024 01-22-2024 Episodic Other injuries and conditions due to external causes (10 sources) H/O: head injury; Translations: [Personal history of other (healed) physical injury and trauma] Onset: 01-07-2024 03-24-2024 Episodic Other lower respiratory disease (4 sources) Other forms of dyspnea; Translations: [OTHER FORMS OF DYSPNEA] Onset: 06-24-2022 Episodic Other lower respiratory disease (1 source) Dyspnea, unspecified; Translations: [DYSPNEA UNSPECIFIED] Onset: 05-27-2022 Episodic Other lower respiratory disease (11 sources) Dyspnea; Translations: [Shortness of breath] Onset: 06-28-2022 01-22-2024 Episodic Other nervous system disorders (2 sources) Pill rolling; Translations: [Tremor, unspecified] Onset: 03-15-2014 Episodic Other nervous system disorders (10 sources) Numbness; Translations: [Anesthesia of skin] Onset: 03-09-2024 03-09-2024 Episodic Other nervous system disorders (2 sources) Other acute postprocedural pain; Translations: [Other acute postprocedural pain] Onset: 10-14-2024 Episodic Other screening for suspected conditions (not mental disorders or infectious disease) (11 sources) Raised prostate specific antigen; Translations: [Elevated prostate specific antigen [PSA]] Onset: 12-01-2018 01-22-2024 Episodic Other upper respiratory disease (20 sources) Stenosis of trachea; Translations: [Other specified diseases of upper respiratory tract] Onset: 05-13-2014 05-13-2014 Episodic Phlebitis; thrombophlebitis and thromboembolism (20 sources) Acute embolism and thrombosis of unspecified deep veins of left lower extremity; Translations: [H/O: Deep vein thrombosis] Onset: 07-15-2018 Episodic Pulmonary heart disease (20 sources) Infarction of lung due to embolus; Translations: [Other pulmonary embolism without acute cor pulmonale] Onset: 08-06-2018 08-06-2018 Episodic Rehabilitation care; fitting of prostheses; and adjustment of devices (2 sources) Encounter for adjustment and management of neurostimulator; Translations: [Encounter for adjustment and management of neurostimulator] Onset: 09-20-2024 Episodic Residual codes; unclassified (19 sources) Difficult venous access; Translations: [Other specified health status] Onset: 01-21-2022 Episodic Residual codes; unclassified (19 sources) Tobacco use and exposure - finding; Translations: [Tobacco use] Onset: 01-21-2022 Episodic Residual codes; unclassified (12 sources) Bilateral lower limb edema; Translations: [Localized edema] Onset: 03-31-2014 03-31-2014 Episodic Residual codes; unclassified (12 sources) Other specified personal risk factors, not elsewhere classified; Translations: [Other specified personal history presenting hazards to health] Onset: 01-29-2024 12-01-2014 Episodic Residual codes; unclassified (14 sources) Altered mental status; Translations: [Altered mental status, unspecified] Onset: 11-28-2023 11-28-2023 Episodic Residual codes; unclassified (12 sources) Staring; Translations: [Transient alteration of awareness] Onset: 12-01-2023 12-01-2023 Episodic Residual codes; unclassified (12 sources) Transient alteration of awareness; Translations: [Transient alteration of awareness] Onset: 12-01-2023 12-01-2023 Episodic Residual codes; unclassified (10 sources) Amnesia; Translations: [Other amnesia] Onset: 01-07-2024 01-07-2024 Episodic Residual codes; unclassified (10 sources) Edema of lower extremity; Translations: [Localized edema] Onset: 09-04-2020 01-22-2024 Episodic Residual codes; unclassified (2 sources) Localized edema; Translations: [Localized edema] Onset: 07-26-2024 Episodic Skin and subcutaneous tissue infections (10 sources) Cellulitis; Translations: [Cellulitis, unspecified] Onset: 08-19-2023 01-22-2024 Episodic Spondylosis; intervertebral disc disorders; other back problems (20 sources) Low back pain; Translations: [Lumbago] Onset: 01-25-2014 11-25-2008 Episodic Syncope (13 sources) Syncope and collapse; Translations: [Syncope and collapse] Onset: 07-05-2022 12-01-2023 Episodic Urinary tract infections (11 sources) Urinary tract infectious disease; Translations: [Urinary tract infection, site not specified] Onset: 12-01-2018 01-22-2024 Episodic Results Test Name Value Interpretation Reference Range Facility 3612-13-2024 36 Please schedule patient for next week. For now, he can turn the stimulation off if he experiences the side effects. [facility] 36 Please schedule patient for next week. For now, he can turn the stimulation off if he experiences the side effects. [facility] 12-10-2024 36 Phone smith to patient, he describes sx as in llast message from [employer]. He states tingling started day after visit. He is going to try reaching out to [employer]. Ill await call back from Dr Van [facility] 36 I don't believe we talked about calling office if he didn't get improvement. Certainly let us know of side effects. If he is not noticing adequate tremor control, he does have ability to increase the setting on his DBS and he should do so slowly (press up button twice) and give it a few to see if there is overall better tremor control. 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 [facility] 3612-09-2024 36 Patient, Andry, called the office and stated that he was in on 11-15-24 for his DBS. Patients states that he was informed to call the office if he didn't get any improvement. Patient states no improvement from his office. Please advise. 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 Gross for CIDP management, in [facility] Office Visiton 11-29-2024 Follow-up visit [id number] Joanie Pierre 1960 M Date Provider Department Center 11/29/2024 MARIO RIVERA [facility] Family History Problem Relation Age of Onset Coronary artery disease Mother Coronary artery disease Father Family Status - Relation Status Age at Mother Father Level of Service:12240 [place] OFFICE/OUTPATIENT ESTABLISHED LOW MDM 20 MIN Reason for Visit and Comments: Tremors [[id number]] - New patient here for a essential tremors. [facility] Office Visiton 11-02-2024 Follow-up visit [id number] Joanie Pierre 1960 M Date Provider Department Center 11/02/2024 RICHARD DUARTE [facility] SURG [place] Family History Problem Relation Age of Onset Coronary artery disease Mother Coronary artery disease Father Family Status - Relation Status Age at Mother Father Level of Service:50651 [place] POSTOP FOLLOW UP VISIT RELATED TO ORIGINAL PX Reason for Visit and Comments: Post-op [483] [facility] 36on 10-15-2024 36 Spoke to and patient tonight. He notes some pain and burning at the surgical site, but he notes worse pain which extends down his arm. He states that pain began when he attempted to rise from a wheelchair after returning home from surgery. I advised that I cannot explain arm pain related to the generator site exchange. I can refill pain medication, but if he is suffering new arm pain then it would be best to have his arm evaluated for any new injury or other source of pain. He was encouraged to have arm pain evaluated if severe enough to require opioid medication for pain. Pt voiced understanding and agreement. Will place new prescription for surgical site pain. [facility] 36 Pt's called stating that the pain medication that was prescribed is not helping with his pain. Please advise. [facility] Telephoneon 10-15-2024 Telephone [id number] Joanie Pierre 1960 M Date Provider Department Center 10/15/2024 KRISTIN ALVAREZ [facility] SURG [place] Family History Problem Relation Age of Onset Coronary artery disease Mother Coronary artery disease Father Family Status - Relation Status Age at Mother Father [facility] HPon 10-14-2024 HP H&P reviewed. The patient was examined and there are no changes to the H&P. [facility] NURSNOTEon 10-14-2024 NURSNOTE Pt took home pain me d for minor pain prior to DC home. [facility] NURSNOTE DC instructions reviewed with patient and , copy given. Prescription filled and sent home with patient. [facility] OPNOTEon 10-14-2024 OPNOTE Date: 10/14/2024 Location: [facility] OR Name: Andry Pierre, : 1960, Diagnosis Pre-op Diagnosis * Parkinson's disease, unspecified whether dyskinesia present, unspecified whether manifestations fluctuate (CMS/HCC) [G20.A1] Post-op Diagnosis * Parkinson's disease, unspecified whether dyskinesia present, unspecified whether manifestations fluctuate (CMS/HCC) [G20.A1] Procedures DEEP BRAIN STIMULATOR, IPG EXCHANGE 28449 - [place] INSJ/RPLCMT CRANIAL NEUROSTIM PULSE GENERATOR Surgeons Primary: Richard Arvizu MD Procedure Summary Anesthesia: General ASA: III Estimated Blood Loss: Minimal Drains: * None in log * Implants Type Name Action Serial No. Device PERCEPT PC BRAINSENSE Implanted [id number] Device SENSIGHT CONNECTOR PLUG Implanted Device POCKET ADAPTOR FOR DEEP BRAIN STIMULATION Implanted Staff: Dispensary Clerk: Rl Drummond RN Scrub Person: Reema Gaytan CST Life Specialist: Duke Molina CSA Indications: Andry Pierre is an 63 y.o. male who is having surgery for Parkinson's disease, unspecified whether dyskinesia present, unspecified whether manifestations fluctuate (CMS/HCC) [G20.A1]. Findings: Unchanged lead impedances. Complications: None; patient tolerated the procedure well. Disposition: PACU - hemodynamically stable. Condition: stable Specimens Collected: No specimens collected during this procedure. Attending Attestation: I performed the procedure. Richard Gabino [facility] OPNOTE DEEP BRAIN STIMULATOR, IPG EXCHANGE Operative Note Date: 10/14/2024 Location: [facility] OR Name: Andry Pierre, : 1960, Diagnosis Pre-op Diagnosis * Parkinson's disease, unspecified whether dyskinesia present, unspecified whether manifestations fluctuate (CMS/HCC) [G20.A1] Post-op Diagnosis * Parkinson's disease, unspecified whether dyskinesia present, unspecified whether manifestations fluctuate (CMS/HCC) [G20.A1] Procedures DEEP BRAIN STIMULATOR, IPG EXCHANGE 55027 - [place] INSJ/RPLCMT CRANIAL NEUROSTIM PULSE GENERATOR Surgeons Primary: Richard Arvizu MD Procedure Summary Anesthesia: General ASA: III Estimated Blood Loss: Minimal Drains: * None in log * Implants Type Name Action Serial No. Device PERCEPT PC BRAINSENSE Implanted [id number] Device SENSIGHT CONNECTOR PLUG Implanted Device POCKET ADAPTOR FOR DEEP BRAIN STIMULATION Implanted Staff: Dispensary Clerk: Rl Drummond RN Scrub Person: Reema Gaytan CST Life Specialist: Duke Molina CSA Indications: Andry Pierre is an 63 y.o. male who is having surgery for Parkinson's disease, unspecified whether dyskinesia present, unspecified whether manifestations fluctuate (CMS/HCC) [G20.A1]. He has a longstanding history of essential tremor and had undergone prior left VIM DBS with placement of a left single channel pulse generator. He has undergone multiple IPG exchanges, last which was in 2021. Recently, he noted abrupt worsening of tremor in the right upper extremity. Interrogation of the Activa SC IPG revealed that it had reached its end of service. Based upon these findings, the patient was offered exchange of the existing IPG with a new percept PC device in the interest of a longer service life. After discussion of the surgery itself, its risk, its benefits, and the alternatives, he elected to proceed and informed consent was obtained. Procedure Details: The patient was brought to the operating theater. The patient was transferred from a cart to the operative table. Conscious sedation was induced without difficulty. Adequate vascular access was ensured. No Cornejo catheter was placed. It was ensured that all pressure points were padded adequately. The proposed site of surgery in the left subclavicular region was identified. The existing well-healed scar was marked. It was prepped and draped in the normal sterile fashion. A timeout was performed confirming the correct patient, procedure, and site. It was ensured that preoperative antibiotics had been delivered. The skin at the proposed site of incision along the well-healed left subclavicular wound was infiltrated with local anesthetic. The skin was opened sharply along the line of the existing well-healed scar. Dissection was carried down sharply with a #10 blade through the superficial tissues. A combination of sharp and blunt dissection with Metzenbaum scissors was used to expose the capsule surrounding the existing IPG. The capsule was opened with a #15 blade. This opening was extended with Metzenbaum scissors. Sutures anchoring the generator were identified, divided, and removed. Gentle traction was applied against the generator and it was extracted from the subclavicular pocket. Monopolar cautery was used sparingly to free the distal portion of the extensionleads. After the distal portion of the lead had been mobilized, the inferior portion of the pocket was remodeled with monopolar cautery. The wound was irrigated thoroughly. The enclosed screwdriver was used to detach the existing IPG from the distal portion of the extension lead. The existing IPG was removed from the field. A new 1 x 4 adapter was placed upon the existing older style 2 pin extension lead. A new [employer] PC generator was opened onto the field. It had been preprogrammed with the patient's existing settings. A plug was placed in one of the 2 channels of the generator. The IPG was affixed to the new adapter. It was secured with the enclosed screwdriver. Excess portions of the extension leads were wound behind the generator. It was reinserted in the subclavicular pocket. The generator was anchored to the surrounding capsule in 2 locations with 2-0 silk sutures. Interrogation of the system revealed stable impedance readings with a single low impedance and bipolar 0-3. The wound was irrigated thoroughly. Vancomycin powder was instilled within the wound to help prevent infection. The wound was closed in multiple layers with resorbable suture. Prior to skin closure, the surrounding tissue was infiltrated with Marcaine to serve as a field block. The skin was closed with Dermabond. At the conclusion of skin closure, all counts were correct x2. The drapes were removed and anesthesia was reversed. The patient's LMA was removed without difficulty. The patient was transferred to awaiting cart and then to the postanesthesia care unit in stable condition. Findings: Impeda (more content not included)... Normal [facility] POCT GLUCOSE METER UNSOLICIT ED RESULTSon 10-14-2024 Glucose [Mass/Vol] 82 mg/dL Normal 70-105 [facility] Comment on above: Order Comment: Waive d Testing in the ED is performed under the ED CLIA certificate #[id number]. Result Comment: [email or web address] Performed By: #### L [id number] #### [facility] ([facility]) [address] [place] [address] Glucose [Mass/Vol] 67 mg/dL Low 70-105 [facility] Comment on above: Order Comment: Waive d Testing in the ED is performed under the ED CLIA certificate #[id number]. Result Comment: [email or web address] Performed By: #### L [id number] ####[facility] ([facility])[address] [facility] [place] [address] Glucose [Mass/Vol] 73 mg/dL Normal 70-105 [facility] Comment on above: Order Comment: Waive d Testing in the ED is performed under the ED CLIA certificate #[id number]. Result Comment: [email or web address] Performed By: #### L [id number] #### [facility] ([facility]) [address] [address] Glucose [Mass/Vol] 59 mg/dL Low 70-105 [facility] Comment on above: Order Comment: Waive d Testing in the ED is performed under the ED CLIA certificate #[id number]. Result Comment: [email or web address] Performed By: #### L [id number] ####[facility] ([facility])[address] [place] [address] Telephoneon 09-23-2024 Telephone [phone] Joanie Pierre 1960 M Date Provider Department Center 09/23/2024 MEGA DONAHUE [facility] [place] [facility] Family History Problem Relation Age of Onset Coronary artery disease Mother Coronary artery disease Father Family Status - Relation Status Age at Mother Father Normal [facility] APTTon 09-20-2024 ACTIVATED PARTIAL THROMBOPLASTIN TIME IN PPP BY COAGULATION ASSAY 31.4 Seconds Normal 25.0-35.0 [facility] Comment on above: Result Comment: Clin ical significance of the APTT is questionable in the presence of heparin. Performed By: #### L [id number] #### [facility] ([facility]) [address] [place] [address] BASIC METABOLIC PANEL 09-05 Anion gap [Moles/Vol] 9 mmol/L Normal 7-20 [facility] Comment on above: Performed By: #### L [id number] #### [facility] ([facility]) [address] [place] [address] Calcium [Mass/Vol] 8.7 mg/dL Normal 8.6-10.3 [facility] Comment on above: Performed By: #### L [id number] #### [facility] ([facility]) [address] [place] [address] Chloride [Moles/Vol] 111 mmol/L High 98-107 [facility] Comment on above: Performed By: #### L [id number] #### [facility] ([facility]) [address] [place] [address] CO2 [Moles/Vol] 28 mmol/L Normal 21-31 [facility] Comment on above: Performed By: #### L [id number] #### [facility] ([facility]) [address] [place] [address] Creatinine [Mass/Vol] 1.87 mg/dL High 0.70-1.30 [facility] Comment on above: Performed By: #### L [id number] #### [facility] ([facility]) [address] [place] [address] GLOMERULAR FILTRATION RATE ML/MIN/1.73 SQ M.PREDICTED 39.9 mL/min/1.73m*2 Low >60.0 [facility] Comment on above: Result Comment: The [facility]???s estimated glomerular filtration rate (eGFR) will no longer include consideration of race in its calculation. The National Kidney Foundation???s eGFR Task Force developed new recommendations for the estimation of the glomerular filtration rate in the [place] They recommend immediate implementation of the new equation refit without the race variable in all laboratories because the calculation does not include race. In addition to not including race in the calculation and reporting, it included diversity in its development, and has acceptable performance characteristics and potential consequences that do not disproportionately affect any one group of individuals. Performed By: #### L [id number] #### [facility] ([facility]) [address] [place] [address] Glucose [Mass/Vol] 125 mg/dL High 70-100 [facility] Comment on above: Performed By: #### L [id number] #### [facility] ([facility]) [address] [place] [address] Potassium [Moles/Vol] 3.7 mmol/L Normal 3.5-5.1 [facility] Comment on above: Performed By: #### L [id number] #### [facility] ([facility]) [address] [place] [address] Sodium [Moles/Vol] 144 mmol/L Normal 136-145 [facility] Comment on above: Performed By: #### L [id number] #### [facility] ([facility]) [address] [place] [address] Urea nitrogen [Mass/Vol] 28 mg/dL High 7-25 [facility] Comment on above: Performed By: #### L [id number] #### [facility] ([facility]) [address] [place] [address] UREA NITROGEN/CREATININE (MASS RATIO) IN SER/PLAS 15.0 Normal [facility] Comment on above: Performed By: #### L [id number] #### [facility] ([facility]) [address] [place] [address] CBC WITH AUTO DIFFERENTIALon 09-20-2024 Basophils (Bld) [#/Vol] 0.06 10*3/uL Normal 0.00-0.20 [facility] Comment on above: Performed By: #### L [id number] #### [facility] ([facility]) [address] [facility] [place] [address] Basophils/100 WBC (Bld) 0.8 % Normal 0.0-1.0 [facility] Comment on above: Performed By: #### L [id number] #### [facility] ([facility]) [address] [place] [address] Eosinophils (Bld) [#/Vol] 0.41 10*3/uL Normal 0.00-0.50 [facility] Comment on above: Performed By: #### L [id number] #### [facility] ([facility]) [address] [place] [address] Eosinophils/100 WBC (Bld) 5.3 % Normal 0.0-6.0 [facility] Comment on above: Performed By: #### L [id number] #### [facility] ([facility]) [address] [place] [address] Erythrocyte distribution width (RBC) [Ratio] 13.8 % Normal 11.5-15.0 [facility] Comment on above: Performed By: #### L [id number] #### [facility] ([facility]) [address] [place] [address] ERYTHROCYTE MEAN CORPUSCULAR HEMOGLOBIN CONCENTRATION (G/DL) BY AUTOMATED 32.4 g/dL Normal 32.0-35.0 [facility] Comment on above: Performed By: #### L [id number] #### [facility] ([facility]) [address] [place] [address] Hematocrit (Bld) [Volume fraction] 41.7 % Normal 39.0-55.0 [facility] Comment on above: Performed By: #### L [id number] #### [facility] ([facility]) [address] [place] [address] Hemoglobin (Bld) [Mass/Vol] 13.5 g/dL Normal 13.0-17.0 [facility] Comment on above: Performed By: #### L [id number] #### [facility] ([facility]) [address] [place] [address] Immature granulocytes (Bld) [#/Vol] 0.02 10*3/uL Normal 0.00-0.20 [facility] Comment on above: Performed By: #### L [id number] #### [facility] ([facility]) [address] [place] [address] Immature granulocytes/100 WBC (Bld) 0.3 % Normal 0.0-1.0 [facility] Comment on above: Performed By: #### L [id number] #### [facility] ([facility]) [address] [place] [address] Lymphocytes (Bld) [#/Vol] 2.15 10*3/uL Normal 1.20-4.00 [facility] Comment on above: Performed By: #### L [id number] #### [facility] ([facility]) [address] [place] [address] Lymphocytes/100 WBC (Bld) 27.6 % Normal 20.0-45.0 [facility] Comment on above: Performed By: #### L [id number] #### [facility] ([facility]) [address] [place] [address] MCH (RBC) [Entitic mass] 32.2 pg Normal 27.0-33.0 [facility] Comment on above: Performed By: #### L [id number] #### [facility] ([facility]) [address] [place] [address] MCV (RBC) [Entitic vol] 99.5 fL High 82.0-98.0 [facility] Comment on above: Performed By: #### L [id number] #### [facility] ([facility]) [address] [place] [address] Monocytes (Bld) [#/Vol] 0.54 10*3/uL Normal 0.10-1.00 [facility] Comment on above: Performed By: #### L [id number] #### [facility] ([facility]) [address] [place] [address] Monocytes/100 WBC (Bld) 6.9 % Normal 5.0-12.0 [facility] Comment on above: Performed By: #### L [id number] #### [facility] ([facility]) [address] [place] [address] Neutrophils (Bld) [#/Vol] 4.62 10*3/uL Normal 1.60-7.60 [facility] Comment on above: Performed By: #### L [id number] #### [facility] ([facility]) [address] [place] [address] Neutrophils/100 WBC (Bld) 59.1 % Normal 40.0-72.0 [facility] Comment on above: Performed By: #### L [id number] #### [facility] ([facility]) [address] [place] [address] NRBC (PER 100 WBCS) BY AUTOMATED COUNT 0.0 % Normal 0 [facility] Comment on above: Performed By: #### L [id number] #### [facility] ([facility]) [address] [place] [address] PLATELETS (10*3/UL) IN BLOOD AUTOMATED COUNT 224 10*3/uL Normal 150-400 [facility] Comment on above: Performed By: #### L [id number] #### [facility] ([facility]) [address] [place] [address] RBC (Bld) [#/Vol] 4.19 10*6/uL Low 4.20-5.70 [facility] Comment on above: Performed By: #### L [id number] #### [facility] ([facility]) [address] [place] [address] WBC (Bld) [#/Vol] 7.80 10*3/uL Normal 4.00-10.60 [facility] Comment on above: Performed By: #### L [id number] #### [facility] ([facility]) [address] [place] [address] Consulton 09-20-2024 Consult [id number] Joanie Pierre Sona 1960 M Date Provider Department Center 09/20/2024 Prasanth0-RICHARD ARVIZU [facility] SURG Second Fl Family History Problem Relation Age of Onset Coronary artery disease Mother Coronary artery disease Father Family Status - Relation Status Age at Mother Father Level of Service:37135 [place] OFFICE/OP CONSLTJ NEW/EST PT MOD MDM 40 MINUTES Reason for Visit and Comments: Consult [484] - DBS battery replacement Normal [facility] HPon 09-20-2024 HP Neurosurgery Consult Chief Complaint: Deep brain stimulator implanted pulse generator of service. History of Present Illness: Andry Pierre is a 63 y.o. right-handed male who presents in kind referral from Ju Cervantes NP with [facility] neurolog[facility] in [place] for evaluation of a nonfunctional implanted pulse generator. A portion of his history is obtained from the medical record. Somewhere between 2000 and 2005 he had undergone placement of a left VIM DBS with a left single channel IPG by Dr. Glover, for treatment of essential tremor. He had undergone several IPG exchanges the last of which was in [address] [facility]. In 2019, placement of a right VIM electrode was considered at the [facility] and the patient underwent a substantial workup, but ultimately it was determined that his cardiac risk was prohibitively high. Since that time, the patient's had a number of other neurologic problems including reportedly developing CIDP. He has lost use of his legs and is now wheelchair-bound. Around 5 months ago, he noticed sudden worsening of tremor in the right upper extremity. Since that time, it has been difficult for him to perform activities of daily living with his right upper extremity, which is his dominant hand. The patient was referred to discuss exchange of the implanted pulse generator. He states that his DBS system has not been interrogated or adjusted in some time. The patient is also concerned because he has been told in the past that he had essential tremor but has more recently been told that he may have Parkinson's disease. He is unsure which portions of his current neurologic symptoms may be related to CIDP and which portions may be related to a movement disorder. Of note, he has numerous medical comorbidities including COPD, PAM, history of venous thromboembolism with anticoagulation on Eliquis, and CAD. Problem List: Patient Active Problem List Diagnosis Acute, but ill-defined, cerebrovascular disease Asthma Neuropathy CHF (congestive heart failure) ([facility]) Chronic deep vein thrombosis (DVT) of proximal vein of both lower extremities ([facility]) CKD (chronic kidney disease) Congenital heart disease COPD (chronic obstructive pulmonary disease) ([facility]) History of DVT (deep vein thrombosis) Diastolic dysfunction Difficult intravenous access Dyslipidemia Leg edema Elevated PSA Esophageal reflux Essential hypertension Hematuria, gross Hyperlipidemia Hypokalemia Low back pain BMI 45.0-49.9, adult ([facility]) Obstructive sleep apnea syndrome Other diseases of pharynx, not elsewhere classified(478.29) Parkinson's disease ([facility]) History of pulmonary embolus (PE) Recurrent major depression in partial remission ([facility]) SOB (shortness of breath) Subarachnoid bleed ([facility]) Tracheal stenosis Tremor Type 2 diabetes mellitus without complication ([facility]) Urge incontinence of urine Urinary tract infection without hematuria Volume overload Syncope and collapse 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 ([facility]) Chronic heart failure with preserved ejection fraction ([facility]) Anxiety state Cocaine dependence in remission ([facility]) Disorder of refraction and accommodation Gout History of tracheostomy Hypersomnia with sleep apnea Major depressive disorder, recurrent, moderate ([facility]) Morbid obesity ([facility]) Nondependent cannabis abuse in remission Presbyopia Cellulitis Abdominal pain Acute encephalopathy Acute renal failure (ARF) ([facility]) Altered awareness, transient Altered mental status Bilateral lower extremity edema Bilateral primary osteoarthritis of knee Choledocholithiasis Cholelithiases Chronic anticoagulation 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 Depression Diabetic mononeuropathy associated with diabetes mellitus due to underlying condition ([facility]) Diabetic neuropathy ([facility]) DVT (deep venous thrombosis) ([facility]) Dysphagia Encounter for chronic pain management Equinus contracture of right ankle History of hematemesis History of stroke Irritable bowel syndrome Lumbar facet arthropathy Lumbar radiculopathy Memory loss Multiple falls Muscle cramps Need for immunization against influenza Pulmonary embolus with infarction ([facility]) Renal disease S/P deep brain stimulator placement DJD (degenerative joint disease) Staring episodes Stroke risk Tracheostomy in place ([facility]) Type 2 diabetes mellitus with hyperglycemia ([facility]) Type II or unspecified type diabetes mellitus with renal manifestations, not stated as uncontrolled(250.40) Weakness Fall Diabetes mellitus ([facility]) Acute on chronic diastolic heart failure ([facility]) Other chest pain Past Medical History: Past Medical History: Diagnosis Date CHF (congestive heart failure) ([facility]) (more content not included)... Normal [facility] Labon 09-20-2024 Lab [id number] Joanie Pierre 1960 M Date Provider Department Center 09/20/2024 [id number] OPD LAB RESOURCE [facility] OPD DE Medical C Family History Problem Relation Age of Onset Coronary artery disease Mother Coronary artery disease Father Family Status - Relation Status Age at Mother Father Normal [facility] MRSA/MSSA DNA NASALon 2023 MRSA DNA Positive Abnormal Negative [facility] Comment on above: Order Comment: Testi ng methodology is an automated qualitative in vitro diagnostic test for the directdetection and differentiation of Staphylococcus aureus (SA) DNA and methicillin-resistant Staphylococcus aureus (MRSA) DNA from nasal swabs in patients at risk for nasal colonization. The test utilizes real-time polymerase chain reaction (PCR) for the amplification of MRSA/SA DNA and fluorogenic target-specific hybridization probes for the detection of the amplified DNA. A negative result does not preclude nasal colonization. Performed By: #### L [id number] ####[facility] ([facility]AKER)[address] [place] [address] MSSA DNA Negative Normal Negative [facility] Comment on above: Order Comment: Testi ng methodology is an automated qualitative in vitro diagnostic test for the directdetection and differentiation of Staphylococcus aureus (SA) DNA and methicillin-resistant Staphylococcus aureus (MRSA) DNA from nasal swabs in patients at risk for nasal colonization. The test utilizes real-time polymerase chain reaction (PCR) for the amplification of MRSA/SA DNA and fluorogenic target-specific hybridization probes for the detection of the amplified DNA. A negative result does not preclude nasal colonization. Performed By: #### L [id number] ####[facility] ([facility]AKER)[address] [place] [address] PROTIME-INRon 09-20-2024 INR IN PPP BY COAGULATION ASSAY 1.22 High 0.90-1.10 [facility] Comment on above: Result Comment: ACCC P RECOMMENDED INR FOR WARFARIN THERAPY CONDITION INR PROPHYLAXIS OF VENOUS THROMBOSIS 2-3 (HIGH-RISK SURGERY) TREATMENT OF VENOUS THROMBOSIS 2-3 TREATMENT OF PULMONARY EMBOLISM 2-3 PREVENTION OF SYSTEMIC EMBOLISM: 2-3 ACUTE MYOCARDIAL INFARCTION TISSUE HEART VALVES VALVULAR HEART DISEASE ATRIAL FIBRILLATION RECURRENT SYSTEMIC EMBOLISM MECHANICAL HEART VALVE 2.5-3.5 FROM: ORAL ANTICOAGULANTS. MECHANISM OF ACTION, CLINICAL EFFECTIVENESS, AND OPTIMAL THERAPEUTIC RANGE. CHEST 1995;108:231S-246S. Performed By: #### L [id number] #### [facility] ([facility]ER) [address] [place] [address] PROTHROMBIN TIME (PT) IN PPP BY COAGULATION ASSAY 15.4 Seconds High 12.3-14.8 [facility] Comment on above: Performed By: #### L [id number] #### [facility] ([facility]) [address] [place] [address] 36on 09-09-2024 36 Regarding stress emili t result from 08/05/2024: MD Jodi Devlin MA Please advise patient that his stress test did not show evidence of ischemia and it showed normal heart function. Continue current management. LM on VM. Normal [facility] 36on 08-24-2024 36 Pt infomred sleep study order sent [facility] 36 Regarding stress emili t result from 08/05/2024: MD Jodi Devlin MA Please inform patient that his stress test did not show evidence of ischemia. Also on last loop recorder he had some sinus bradycardia therefore ask him to reduce metoprolol to 25 mg twice daily and to report any events of falling on the loop recorder. Also reported his blood pressure in a week. Please also refer him for sleep study as soon as possible Thank you Dr. Cherie CLARKE for patient to return my call. [facility] 36on 07-29-2024 36 Regarding labs and CXR from 07/26/2024: MD Jodi Devlin MA The [...] of SOB or SIMMONS. Please advise. Thanks. [facility] Telephoneon 07-29-2024 Telephone [id number] Joanie Pierre 1960 M Date Provider Department Center 07/29/2024 [id number] SANZ Family History Problem Relation Age of Onset Coronary artery disease Mother Coronary artery disease Father Family Status - Relation Status Age at Mother Father [facility] Office Visiton 07-26-2024 Follow-up visit [id number] Joanie Pierre 1960 M Date Provider Department Center 07/26/2024 [id number] CRESPO Family History Problem Relation Age of Onset Coronary artery disease Mother Coronary artery disease Father Family Status - Relation Status Age at Mother Father Level of Service:69586 [place] OFFICE/OUTPATIENT ESTABLISHED MOD MDM 30 MIN Reason for Visit and Comments: Congestive Heart Failure [127] Chest Pain [] Leg Swelling [] - Hasn't been able to get his regular shoes on lately Palpitations [] - Sometimes Dizziness [] - Says BP at home during the evening sometimes falls to 80/40 Normal [facility] Office Vis[place] 07-13-2024 Follow-up visit [id number] Joanie Pierre 1960 M Date Provider Department Center 07/13/2024 241-DIOGENES RODRIGUEZ [facility] Family History Problem Relation Age of Onset Coronary artery disease Mother Coronary artery disease Father Family Status - Relation Status Age at Mother Father Level of Service:54892 [place] OFFICE/OUTPATIENT ESTABLISHED LOW MDM 20 MIN Normal [facility] Office Visiton 06-02-2024 Follow-up visit [id number] Joanie Pierre 1960 M Date Provider Department Center 06/02/2024 LAURA RIVAS MP ORTHO MPORTHO Family History Problem Relation Age of Onset Coronary artery disease Mother Coronary artery disease Father Family Status - Relation Status Age at Mother Father Level of Service:80783 [place] OFFICE/OUTPATIENT NEW LOW MDM 30 MINUTES Reason for Visit and Comments: Pain [136] Normal [facility] URN MACROSCOPIC NURon 2023 BILIRUBIN ALE Negative Normal NEG [facility] Comment on above: Performed By: #### N UM #### [facility] ([id number]) [address] [place] [address] BLOOD/HGB ALE Negative Normal NEG [facility] Comment on above: Performed By: #### N UM #### [facility] ([id number]) [address] [place] [address] GLUCOSE ALE >=1000 Abnormal NEG [facility] Comment on above: Performed By: #### N UM #### [facility] ([id number]) [address] [place] [address] KETONES ALE Negative Normal NEG [facility] Comment on above: Performed By: #### N UM #### [facility] ([id number]) [address] [place] [address] LEUKOCYTE ESTERASE ALE Negative Normal NEG [facility] Comment on above: Performed By: #### N UM #### [facility] ([id number]) [address] [place] [address] NITRITE ALE Negative Normal NEG [facility] Comment on above: Performed By: #### N UM #### [facility] ([id number]) [address] [place] [address] PH ALE 5.0 Normal 5.0-8.5 [facility] Comment on above: Performed By: #### N UM #### [facility] ([id number]) [address] [place] [address] PROTEIN ALE Negative Normal NEG [facility] Comment on above: Performed By: #### N UM #### [facility] ([id number]) [address] [place] [address] SPECIFIC GRAVITY ALE 1.010 Normal 1.003-1.035 [facility] Comment on above: Performed By: #### N UM #### [facility] ([id number]) [address] [place] [address] [place] [address] UROBILINOGEN ALE 0.2 eu/dL Normal <1.1 [facility] Comment on above: Performed By: #### N UM #### [facility] ([id number]) [address] [place] [address] Glucose,Whole Bloodon 2023 Glucose [Mass/Vol] 203 mg/dL High 75-110 [facility] Glucose [Mass/Vol] 206 mg/dL High 75-110 [facility] Glucose [Mass/Vol] 167 mg/dL High 75-110 [facility] Glucose [Mass/Vol] 137 mg/dL High 75-110 [facility] POC Glucose Fingerstickon Glucose [Mass/Vol] 203 mg/dL High 75 - 110 mg/dL [facility] Interpretation and review of laboratory results Abnormal [facility] Glucose [Mass/Vol] 206 mg/dL High 75 - 110 mg/dL [facility] Interpretation and review of laboratory results Abnormal [facility] Glucose [Mass/Vol] 167 mg/dL High 75 - 110 mg/dL [facility] Interpretation and review of laboratory results Abnormal [facility] Glucose [Mass/Vol] 137 mg/dL High 75 - 110 mg/dL [facility] Interpretation and review of laboratory results Abnormal [facility] PTon 12-08-2023 INR Coag (PPP) [Relative time] 3.3 {INR} Normal [facility] Comment on above: Result Comment: Therapeutic Range: Moderate Anticoagulant Intensity: INR = 2.0-3.0 High Anticoagulant Intensity: INR = 2.5-3.5 Performed By: #### P T #### [employer] [address] [place], [place] [id number] Chief Technology Officer: Jasbir Montalvo MD PT Coag (PPP) [Time] 32.3 s High 11.7-14.9 [facility] Comment on above: Performed By: #### P T #### [employer] [address] [place], [place] [id number] Chief Technology Officer: Jasbir Montalvo MD Protime-INRon 12-08-2023 INR Coag (PPP) [Relative time] 3.3 {INR} [facility] Comment on above: Therapeutic Range: Moderate Anticoagulant Intensity: INR = 2.0-3.0 High Anticoagulant Intensity: INR = 2.5-3.5 Interpretation and review of laboratory results Abnormal [facility] PT Coag (PPP) [Time] 32.3 s High [facility] Glucose,Whole Bloodon 2023 Glucose [Mass/Vol] 193 mg/dL High 75-110 [facility] Glucose [Mass/Vol] 154 mg/dL High 75-110 [facility] Glucose [Mass/Vol] 145 mg/dL High 75-110 [facility] Glucose [Mass/Vol] 132 mg/dL High 75-110 [facility] Hemoglobin and Hematocriton 12-07-2023 Hematocrit (Bld) [Volume fraction] 44.1 % 40.7 - 50.3 % [facility] Hemoglobin (Bld) [Mass/Vol] 14.0 g/dL 13.0 - 17.0 g/dL [facility] Hgb/Hcton 12-07-2023 Hematocrit (Bld) [Volume fraction] 44.1 % Normal 40.7-50.3 [facility] Comment on above: Performed By: #### P HO, CDP, RA, PT, SED, BMPX, FREDA, MG, LD, CRP, FEBC, B12FOL, PTT, C4, CCPAB, FERI, IOCAL, CORTI, CK, C3, REJEC #### [employer] [address] [place] [address] Chief Technology Officer: Jasbir Montalvo MD Hemoglobin (Bld) [Mass/Vol] 14.0 g/dL Normal 13.0-17.0 [facility] Comment on above: Performed By: #### P HO, CDP, RA, PT, SED, BMPX, FREDA, MG, LD, CRP, FEBC, B12FOL, PTT, C4, CCPAB, FERI, IOCAL, CORTI, CK, C3, REJEC #### [employer] [address] [place] [address] Chief Technology Officer: Jasbir Montalvo MD No Panel Informationon 12-06 [facility] [employer] 42cm POC Glucose Fingerstickon Glucose [Mass/Vol] 193 mg/dL High 75 - 110 mg/dL [facility] Interpretation and review of laboratory results Abnormal [facility] Glucose [Mass/Vol] 154 mg/dL High 75 - 110 mg/dL [facility] Interpretation and review of laboratory results Abnormal [facility] Glucose [Mass/Vol] 145 mg/dL High 75 - 110 mg/dL [facility] Interpretation and review of laboratory results Abnormal [facility] Glucose [Mass/Vol] 132 mg/dL High 75 - 110 mg/dL [facility] Interpretation and review of laboratory results Abnormal [facility] PTon 12-07-2023 INR Coag (PPP) [Relative time] 3.2 {INR} Normal [facility] Comment on above: Result Comment: Therapeutic Range: Moderate Anticoagulant Intensity: INR = 2.0-3.0 High Anticoagulant Intensity: INR = 2.5-3.5 Performed By: #### P HO, CDP, RA, PT, SED, BMPX, FREDA, MG, LD, CRP, FEBC, B12FOL, PTT, C4, CCPAB, FERI, IOCAL, CORTI, CK, C3, REJEC #### [facility] [employer] [address] [place] [address] Chief Technology Officer: Jasbir Montalvo MD PT Coag (PPP) [Time] 32.1 s High 11.7-14.9 [facility] Comment on above: Performed By: #### P HO, CDP, RA, PT, SED, BMPX, FREDA, MG, LD, CRP, FEBC, B12FOL, PTT, C4, CCPAB, FERI, IOCAL, CORTI, CK, C3, REJEC #### [facility] [employer] [address] [place] [address] Chief Technology Officer: Jasbir Montalvo MD Platelet Counton 12-07-2023 Platelets (Bld) [#/Vol] 252 10*3/uL Normal 138-453 [facility] Comment on above: Performed By: #### P HO, CDP, RA, PT, SED, BMPX, FREDA, MG, LD, CRP, FEBC, B12FOL, PTT, C4, CCPAB, FERI, IOCAL, CORTI, CK, C3, REJEC #### [facility] [address] [id number] Chief Technology Officer: Jasbir Montalvo MD Platelets (Bld) [#/Vol] 252 10*3/uL [facility] Protime-INRon 12-07-2023 INR Coag (PPP) [Relative time] 3.2 {INR} [facility] Comment on above: Therapeutic Range: Moderate Anticoagulant Intensity: INR = 2.0-3.0 High Anticoagulant Intensity: INR = 2.5-3.5 Interpretation and review of laboratory results Abnormal [facility] PT Coag (PPP) [Time] 32.1 s High [facility] Glucose,Whole Bloodon 2023 Glucose [Mass/Vol] 155 mg/dL High 75-110 [facility] Glucose [Mass/Vol] 190 mg/dL High 75-110 [facility] Glucose [Mass/Vol] 176 mg/dL High 75-110 [facility] Glucose [Mass/Vol] 119 mg/dL High 75-110 [facility] POC Glucose Fingerstickon Glucose [Mass/Vol] 155 mg/dL High 75 - 110 mg/dL [facility] Interpretation and review of laboratory results Abnormal [facility] Glucose [Mass/Vol] 190 mg/dL High 75 - 110 mg/dL [facility] Interpretation and review of laboratory results Abnormal [facility] Glucose [Mass/Vol] 176 mg/dL High 75 - 110 mg/dL [facility] Interpretation and review of laboratory results Abnormal [facility] Glucose [Mass/Vol] 119 mg/dL High 75 - 110 mg/dL [facility] Interpretation and review of laboratory results Abnormal [facility] PTon 12-06-2023 INR Coag (PPP) [Relative time] 2.7 {INR} Normal [facility] Comment on above: Result Comment: Therapeutic Range: Moderate Anticoagulant Intensity: INR = 2.0-3.0 High Anticoagulant Intensity: INR = 2.5-3.5 Performed By: #### P HO, CDP, RA, PT, SED, BMPX, FREDA, MG, LD, CRP, FEBC, B12FOL, PTT, C4, CCPAB, FERI, IOCAL, CORTI, CK, C3, REJEC #### [employer] [address] [place] [id number] Chief Technology Officer: Jasbir Montalvo MD PT Coag (PPP) [Time] 28.0 s High 11.7-14.9 [facility] Comment on above: Performed By: #### P HO, CDP, RA, PT, SED, BMPX, FREDA, MG, LD, CRP, FEBC, B12FOL, PTT, C4, CCPAB, FERI, IOCAL, CORTI, CK, C3, REJEC #### [employer] [address] [place] [address] Chief Technology Officer: Jasbir Montalvo MD Protime-INRon 12-06-2023 INR Coag (PPP) [Relative time] 2.7 {INR} [facility] Comment on above: Therapeutic Range: Moderate Anticoagulant Intensity: INR = 2.0-3.0 High Anticoagulant Intensity: INR = 2.5-3.5 Interpretation and review of laboratory results Abnormal [facility] PT Coag (PPP) [Time] 28.0 s High [facility] XR FOOT RIGHT (2 VIEWS)on XR [...] Christian Baldwin MD 12/06/23 Final result Normal [facility] XR Foot - right 2 Viewson 1. No fracture or dislocation. 2. Mild osteoarthritic changes. 3. Diffuse soft tissue swelling. [facility] EXAMINATION: TWO XRAY VIEWS OF [...] diffuse soft tissue swelling of the foot. [facility] Christian Baldwin MD - 12/06/2023 [...] osteoarthritic changes. 3. Diffuse soft tissue swelling. [facility] XR Foot - right 2 ViewsOrder ed By: Christian Baldwin on 12-06-2023 [facility] Work Phone: Glucose,Whole Bloodon 2023 Glucose [Mass/Vol] 160 mg/dL High 75-110 [facility] Glucose [Mass/Vol] 137 mg/dL High 75-110 [facility] Glucose [Mass/Vol] 189 mg/dL High 75-110 [facility] Glucose [Mass/Vol] 131 mg/dL High 75-110 [facility] Hemoglobin and Hematocriton 12-05-2023 Hematocrit (Bld) [Volume fraction] 42.9 % 40.7 - 50.3 % [facility] Hemoglobin (Bld) [Mass/Vol] 13.1 g/dL 13.0 - 17.0 g/dL [facility] Hgb/Hcton 12-05-2023 Hematocrit (Bld) [Volume fraction] 42.9 % Normal 40.7-50.3 [facility] Comment on above: Performed By: #### P HO, CDP, RA, PT, SED, BMPX, FREDA, MG, LD, CRP, FEBC, B12FOL, PTT, C4, CCPAB, FERI, IOCAL, CORTI, CK, C3, REJEC #### [facility] [address] [place] [phone] Chief Technology Officer: Jasbir Montalvo MD Hemoglobin (Bld) [Mass/Vol] 13.1 g/dL Normal 13.0-17.0 [facility] Comment on above: Performed By: #### P HO, CDP, RA, PT, SED, BMPX, FREDA, MG, LD, CRP, FEBC, B12FOL, PTT, C4, CCPAB, FERI, IOCAL, CORTI, CK, C3, REJEC #### [employer] [address] [place] [address] Chief Technology Officer: Jasbir Montalvo MD No Panel Informationon 12-04 [facility] POC Glucose Fingerstickon Glucose [Mass/Vol] 160 mg/dL High 75 - 110 mg/dL [facility] Interpretation and review of laboratory results Abnormal [facility] Glucose [Mass/Vol] 137 mg/dL High 75 - 110 mg/dL [facility] Interpretation and review of laboratory results Abnormal [facility] Glucose [Mass/Vol] 189 mg/dL High 75 - 110 mg/dL [facility] Interpretation and review of laboratory results Abnormal [facility] Glucose [Mass/Vol] 131 mg/dL High 75 - 110 mg/dL [facility] Interpretation and review of laboratory results Abnormal [facility] PTon 12-05-2023 INR Coag (PPP) [Relative time] 2.6 {INR} Normal [facility] Comment on above: Result Comment: Therapeutic Range: Moderate Anticoagulant Intensity: INR = 2.0-3.0 High Anticoagulant Intensity: INR = 2.5-3.5 Performed By: #### P HO, CDP, RA, PT, SED, BMPX, FREDA, MG, LD, CRP, FEBC, B12FOL, PTT, C4, CCPAB, FERI, IOCAL, CORTI, CK, C3, REJEC #### [facility] [employer] [address] [place] [address] Chief Technology Officer: Jasbir Montalvo MD PT Coag (PPP) [Time] 26.8 s High 11.7-14.9 [facility] Comment on above: Performed By: #### P HO, CDP, RA, PT, SED, BMPX, FREDA, MG, LD, CRP, FEBC, B12FOL, PTT, C4, CCPAB, FERI, IOCAL, CORTI, CK, C3, REJEC #### [facility] [employer] [address] [place] [address] Chief Technology Officer: Jasbir Montalvo MD Platelet Counton 12-05-2023 Platelets (Bld) [#/Vol] 194 10*3/uL Normal 138-453 [facility] Comment on above: Performed By: #### P HO, CDP, RA, PT, SED, BMPX, FREDA, MG, LD, CRP, FEBC, B12FOL, PTT, C4, CCPAB, FERI, IOCAL, CORTI, CK, C3, REJEC #### [facility] [employer] [address] [place] [address] Chief Technology Officer: Jasbir Montalvo MD Platelets (Bld) [#/Vol] 194 10*3/uL [facility] Protime-INRon 12-05-2023 INR Coag (PPP) [Relative time] 2.6 {INR} [employer] Comment on above: Therapeutic Range: Moderate Anticoagulant Intensity: INR = 2.0-3.0 High Anticoagulant Intensity: INR = 2.5-3.5 Interpretation and review of laboratory results Abnormal [facility] PT Coag (PPP) [Time] 26.8 s High [facility] [employer] XR Foot - right 2 Viewson Radiology Study observation (narrative) [employer] Glucose,Whole Bloodon 2023 Glucose [Mass/Vol] 181 mg/dL High 75-110 [facility] Glucose [Mass/Vol] 194 mg/dL High 75-110 [facility] Glucose [Mass/Vol] 184 mg/dL High 75-110 [facility] Glucose [Mass/Vol] 120 mg/dL High 75-110 [facility] Glucose [Mass/Vol] 161 mg/dL High 75-110 [facility] POC Glucose Fingerstickon Glucose [Mass/Vol] 181 mg/dL High 75 - 110 mg/dL [employer] Interpretation and review of laboratory results Abnormal [facility] [employer] [facility] Glucose [Mass/Vol] 194 mg/dL High 75 - 110 mg/dL [facility] Interpretation and review of laboratory results Abnormal [facility] Glucose [Mass/Vol] 184 mg/dL High 75 - 110 mg/dL [facility] Interpretation and review of laboratory results Abnormal [facility] Glucose [Mass/Vol] 120 mg/dL High 75 - 110 mg/dL [facility] Interpretation and review of laboratory results Abnormal [facility] Glucose [Mass/Vol] 161 mg/dL High 75 - 110 mg/dL [facility] Interpretation and review of laboratory results Abnormal [facility] 1[facility] PTon 12-04-2023 INR Coag (PPP) [Relative time] 3.0 {INR} Normal [facility] Comment on above: Result Comment: Therapeutic Range: Moderate Anticoagulant Intensity: INR = 2.0-3.0 High Anticoagulant Intensity: INR = 2.5-3.5 Performed By: #### P HO, CDP, RA, PT, SED, BMPX, FREDA, MG, LD, CRP, FEBC, B12FOL, PTT, C4, CCPAB, FERI, IOCAL, CORTI, CK, C3, REJEC #### [employer] [address] [place] [id number] Chief Technology Officer: Jasbir Montalvo MD PT Coag (PPP) [Time] 30.5 s High 11.7-14.9 [facility] Comment on above: Performed By: #### P HO, CDP, RA, PT, SED, BMPX, FREDA, MG, LD, CRP, FEBC, B12FOL, PTT, C4, CCPAB, FERI, IOCAL, CORTI, CK, C3, REJEC #### [employer] [address] [place] [address] Chief Technology Officer: Jasbir Montalvo MD Protime-INRon 12-04-2023 INR Coag (PPP) [Relative time] 3.0 {INR} [facility] Comment on above: Therapeutic Range: Moderate Anticoagulant Intensity: INR = 2.0-3.0 High Anticoagulant Intensity: INR = 2.5-3.5 Interpretation and review of laboratory results Abnormal [facility] PT Coag (PPP) [Time] 30.5 s High [facility] [employer] 42[employer] EKG 12 LeadOrdered By: Cesar Jean on 12-03-2023 Atrial Rate 67 BPM [employer] Work Phone: P [place] 78 degrees [employer] Work Phone: P-R Interval 148 ms [employer] Work Phone: Q-T Interval 404 ms [employer] Work Phone: QRS Duration 70 ms [employer] Work Phone: QTc Calculation (Bazett) 426 ms [employer] Work Phone: R [place] -47 degrees [facility] Work Phone: T [place] 100 degrees [facility] Work Phone: Ventricular Rate 67 BPM [facility] Work Phone: [facility] Work Phone: EKG 12 Leadon 12-03-2023 Normal sinus rhythm Left axis deviation Inferior infarct , 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 , age undetermined Abnormal ECG No previous ECGs available [facility] - 12/03/2023 Normal sinus rhythm Left axis deviation Inferior infarct , 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 , age undetermined Abnormal ECG No previous ECGs available [facility] Atrial Rate 66 BPM [facility] P [place] 111 degrees [facility] P-R Interval 128 ms [facility] Q-T Interval 440 ms [facility] QRS Duration 94 ms [facility] QTc Calculation (Bazett) 461 ms [facility] R [place] -48 degrees [facility] T [place] 12 degrees [facility] Ventricular Rate 66 BPM [facility] Normal sinus rhythm Left anterior fascicular block Anterolateral infarct (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) Abnormal ECG When compared with ECG of 01-DEC-2023 15:42, QRS duration has increased ST no longer depressed in Anterolateral leads [facility] ST[facility] Nixon MD - 12/03/2023 Normal sinus rhythm Left anterior fascicular block Anterolateral infarct (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) Abnormal ECG When compared with ECG of 01-DEC-2023 15:42, QRS duration has increased ST no longer depressed in Anterolateral leads [facility] Glucose,Whole Bloodon 2023 Glucose [Mass/Vol] 232 mg/dL High 75-110 [facility] Glucose [Mass/Vol] 174 mg/dL High 75-110 [facility] Glucose [Mass/Vol] 176 mg/dL High 75-110 [facility] Glucose [Mass/Vol] 83 mg/dL Normal 75-110 [facility] POC Glucose Fingerstickon Glucose [Mass/Vol] 232 mg/dL High 75 - 110 mg/dL [facility] Interpretation and review of laboratory results Abnormal [facility] Glucose [Mass/Vol] 174 mg/dL High 75 - 110 mg/dL [facility] Interpretation and review of laboratory results Abnormal [facility] Glucose [Mass/Vol] 176 mg/dL High 75 - 110 mg/dL [facility] Interpretation and review of laboratory results Abnormal [facility] Glucose [Mass/Vol] 83 mg/dL 75 - 110 mg/dL [facility] PTon 12-03-2023 INR Coag (PPP) [Relative time] 3.3 {INR} Normal [facility] Comment on above: Result Comment: Therapeutic Range: Moderate Anticoagulant Intensity: INR = 2.0-3.0 High Anticoagulant Intensity: INR = 2.5-3.5 Performed By: #### P HO, CDP, RA, PT, SED, BMPX, FREDA, MG, LD, CRP, FEBC, B12FOL, PTT, C4, CCPAB, FERI, IOCAL, CORTI, CK, C3, REJEC #### [employer] [address] [place] [id number] Chief Technology Officer: Jasbir Montalvo MD PT Coag (PPP) [Time] 32.2 s High 11.7-14.9 [facility] Comment on above: Performed By: #### P HO, CDP, RA, PT, SED, BMPX, FREDA, MG, LD, CRP, FEBC, B12FOL, PTT, C4, CCPAB, FERI, IOCAL, CORTI, CK, C3, REJEC #### [employer] [address] [place] [address] Chief Technology Officer: Jasbir Montalvo MD Protime-INRon 12-03-2023 INR Coag (PPP) [Relative time] 3.3 {INR} [facility] Comment on above: Therapeutic Range: Moderate Anticoagulant Intensity: INR = 2.0-3.0 High Anticoagulant Intensity: INR = 2.5-3.5 Interpretation and review of laboratory results Abnormal [facility] PT Coag (PPP) [Time] 32.2 s High [facility] Basic Metab w/rfx MGon 12-02 Anion gap [Moles/Vol] 9 mmol/L Normal 9-17 [facility] Comment on above: Performed By: #### P HO, CDP, RA, PT, SED, BMPX, FREDA, MG, LD, CRP, FEBC, B12FOL, PTT, C4, CCPAB, FERI, IOCAL, CORTI, CK, C3, REJEC #### [address] [address] Chief Technology Officer: Jasbir Montalvo MD Calcium [Mass/Vol] 8.8 mg/dL Normal 8.6-10.4 [facility] Comment on above: Performed By: #### P HO, CDP, RA, PT, SED, BMPX, FREDA, MG, LD, CRP, FEBC, B12FOL, PTT, C4, CCPAB, FERI, IOCAL, CORTI, CK, C3, REJEC #### [address] [address] Chief Technology Officer: Jasbir Montalvo MD Chloride [Moles/Vol] 109 mmol/L High 98-107 [facility] Comment on above: Performed By: #### P HO, CDP, RA, PT, SED, BMPX, FREDA, MG, LD, CRP, FEBC, B12FOL, PTT, C4, CCPAB, FERI, IOCAL, CORTI, CK, C3, REJEC #### [address] [address] Chief Technology Officer: Jasbir Montalvo MD CO2 [Moles/Vol] 22 mmol/L Normal 20-31 [facility] Comment on above: Performed By: #### P HO, CDP, RA, PT, SED, BMPX, FREDA, MG, LD, CRP, FEBC, B12FOL, PTT, C4, CCPAB, FERI, IOCAL, CORTI, CK, C3, REJEC #### [address] [address] Chief Technology Officer: Jasbir Montalvo MD Creatinine [Mass/Vol] 1.5 mg/dL High 0.7-1.2 [facility] Comment on above: Performed By: #### P HO, CDP, RA, PT, SED, BMPX, FREDA, MG, LD, CRP, FEBC, B12FOL, PTT, C4, CCPAB, FERI, IOCAL, CORTI, CK, C3, REJEC #### [address] [address] Chief Technology Officer: Jasbir Montalvo MD GFR/1.73 sq M.predicted among non-blacks MDRD (S/P/Bld) [Vol rate/Area] 52 mL/min/{1.73_m2} Low >60 [facility] Comment on above: Result Comment: These results [...] IOCAL, CORTI, CK, C3, REJEC #### [address] [address] Chief Technology Officer: Jasbir Montalvo MD Glucose [Mass/Vol] 165 mg/dL High 70-99 [facility] Comment on above: Performed By: #### P HO, CDP, RA, PT, SED, BMPX, FREDA, MG, LD, CRP, FEBC, B12FOL, PTT, C4, CCPAB, FERI, IOCAL, CORTI, CK, C3, REJEC #### [address] [address] Chief Technology Officer: Jasbir Montalvo MD Potassium [Moles/Vol] 3.7 mmol/L Normal 3.7-5.3 [facility] Comment on above: Performed By: #### P HO, CDP, RA, PT, SED, BMPX, FREDA, MG, LD, CRP, FEBC, B12FOL, PTT, C4, CCPAB, FERI, IOCAL, CORTI, CK, C3, REJEC #### [address] [address] Chief Technology Officer: Jasbir Montalvo MD Sodium [Moles/Vol] 140 mmol/L Normal 135-144 [facility] Comment on above: Performed By: #### P HO, CDP, RA, PT, SED, BMPX, FREDA, MG, LD, CRP, FEBC, B12FOL, PTT, C4, CCPAB, FERI, IOCAL, CORTI, CK, C3, REJEC #### [address] [address] Chief Technology Officer: Jasbir Montalvo MD Urea nitrogen [Mass/Vol] 36 mg/dL High 8- [facility] Comment on above: Performed By: #### P HO, CDP, RA, PT, SED, BMPX, FREDA, MG, LD, CRP, FEBC, B12FOL, PTT, C4, CCPAB, FERI, IOCAL, CORTI, CK, C3, REJEC #### [address] [address] Chief Technology Officer: Jasbir Montalvo MD Basic Metabolic Panel w/ Ref sarah to MGon 12-02-2023 Anion gap [Moles/Vol] 9 mmol/L 9 - 17 mmol/L [facility] Calcium [Mass/Vol] 8.8 mg/dL 8.6 - 10. 4 mg/dL [facility] Chloride [Moles/Vol] 109 mmol/L High 98 - 10 7 mmol/L [facility] CO2 [Moles/Vol] 22 mmol/L 20 - 31 mmol/L [facility] Creatinine [Mass/Vol] 1.5 mg/dL High 0.7 - 1.2 mg/dL [facility] GFR/1.73 sq M.predicted MDRD (S/P/Bld) [Vol rate/Area] 52 mL/min/{1.73_m2} Low - PINF [facility] Comment on above: These results [...] 165 mg/dL High 70 - 99 mg/dL [facility] Interpretation and review of laboratory results Abnormal [facility] Potassium [Moles/Vol] 3.7 mmol/L 3.7 - 5.3 mmol/L [facility] Sodium [Moles/Vol] 140 mmol/L 135 - 144 mmol/L [facility] Urea nitrogen [Mass/Vol] 36 mg/dL High 8 - 23 mg/dL [facility] CBC with Auto Differentialon 12-02-2023 Basophils (Bld) [#/Vol] 0.08 10*3/uL [facility] Basophils/100 WBC (Bld) 1 % 0 - 2 % [facility] Eosinophils (Bld) [#/Vol] 0.43 10*3/uL [facility] Eosinophils/100 WBC (Bld) 4 % 1 - 4 % [facility] Erythrocyte distribution width (RBC) [Ratio] 14.2 % 11.8 - 14.4 % [facility] Hematocrit (Bld) [Volume fraction] 46.4 % 40.7 - 50.3 % [facility] Hemoglobin (Bld) [Mass/Vol] 14.4 g/dL 13.0 - 17.0 g/dL [facility] Immature granulocytes (Bld) [#/Vol] 0.03 10*3/uL [facility] Immature granulocytes/100 WBC (Bld) 0 % 0 [facility] Lymphocytes/100 WBC (Bld) 29 % 24 - 43 % [facility] Lymphocytes/100 WBC (Bld) 3.23 % [facility] MCH (RBC) [Entitic mass] 31.2 pg 25.2 - 33.5 pg [facility] MCHC (RBC) [Mass/Vol] 31.0 g/dL 28.4 - 34.8 g/dL [facility] MCV (RBC) [Entitic vol] 100.7 fL 82.6 - 102.9 fL [facility] Monocytes/100 WBC (Bld) 8 % 3 - 12 % [facility] Monocytes/100 WBC (Bld) 0.93 % [facility] Neutrophils/100 WBC (Bld) 58 % 36 - 65 % [facility] Nucleated RBC/100 WBC (Bld) [Ratio] 0.0 % 0.0 per 100 WBC [facility] Platelet mean volume (Bld) [Entitic vol] 10.3 fL 8.1 - 13.5 fL [facility] Platelets (Bld) [#/Vol] 230 10*3/uL [facility] RBC (Bld) [#/Vol] 4.61 10*6/uL 4.21 - 5.7 7 m/uL [facility] Segmented neutrophils/100 WBC (Bld) 6.39 % [facility] WBC other (Bld) [#/Vol] 11.[address] [facility] CBC with Diffon 12-02-2023 Abs. Basophil 0.08 k/uL Normal 0.00-0.20 [facility] Comment on above: Performed By: #### P HO, CDP, RA, PT, SED, BMPX, FREDA, MG, LD, CRP, FEBC, B12FOL, PTT, C4, CCPAB, FERI, IOCAL, CORTI, CK, C3, REJEC #### [address] [address] Chief Technology Officer: Jasbir Montalvo MD Abs.Imm.Granulocyte 0.03 k/uL Normal 0.00-0.30 [facility] Comment on above: Performed By: #### P HO, CDP, RA, PT, SED, BMPX, FREDA, MG, LD, CRP, FEBC, B12FOL, PTT, C4, CCPAB, FERI, IOCAL, CORTI, CK, C3, REJEC #### [address] [address] Chief Technology Officer: Jasbir Montalvo MD Abs.Neutrophil (Seg) 6.39 k/uL Normal 1.50-8.10 [facility] Comment on above: Performed By: #### P HO, CDP, RA, PT, SED, BMPX, FREDA, MG, LD, CRP, FEBC, B12FOL, PTT, C4, CCPAB, FERI, IOCAL, CORTI, CK, C3, REJEC #### [address] [address] Chief Technology Officer: Jasbir Montalvo MD Basophils/100 WBC (Bld) 1 % Normal 0-2 [facility] Comment on above: Performed By: #### P HO, CDP, RA, PT, SED, BMPX, FREDA, MG, LD, CRP, FEBC, B12FOL, PTT, C4, CCPAB, FERI, IOCAL, CORTI, CK, C3, REJEC #### [address] [address] Chief Technology Officer: Jasbir Montalvo MD Eosinophils (Bld) [#/Vol] 0.43 10*3/uL Normal 0.00-0.44 [facility] Comment on above: Performed By: #### P HO, CDP, RA, PT, SED, BMPX, FREDA, MG, LD, CRP, FEBC, B12FOL, PTT, C4, CCPAB, FERI, IOCAL, CORTI, CK, C3, REJEC #### [address] [address] Chief Technology Officer: Jasbir Montalvo MD Eosinophils/100 WBC (Bld) 4 % Normal 1-4 [facility] Comment on above: Performed By: #### P HO, CDP, RA, PT, SED, BMPX, FREDA, MG, LD, CRP, FEBC, B12FOL, PTT, C4, CCPAB, FERI, IOCAL, CORTI, CK, C3, REJEC #### [address] [address] Chief Technology Officer: Jasbir Montalvo MD Erythrocyte distribution width (RBC) [Ratio] 14.2 % Normal 11.8-14.4 [facility] Comment on above: Performed By: #### P HO, CDP, RA, PT, SED, BMPX, FREDA, MG, LD, CRP, FEBC, B12FOL, PTT, C4, CCPAB, FERI, IOCAL, CORTI, CK, C3, REJEC #### [address] [address] Chief Technology Officer: Jasbir Montalvo MD Hematocrit (Bld) [Volume fraction] 46.4 % Normal 40.7-50.3 [facility] Comment on above: Performed By: #### P HO, CDP, RA, PT, SED, BMPX, FREDA, MG, LD, CRP, FEBC, B12FOL, PTT, C4, CCPAB, FERI, IOCAL, CORTI, CK, C3, REJEC #### [facility] [employer] [address] [place] [address] Chief Technology Officer: Jasbir Montalvo MD Hemoglobin (Bld) [Mass/Vol] 14.4 g/dL Normal 13.0-17.0 [facility] Comment on above: Performed By: #### P HO, CDP, RA, PT, SED, BMPX, FREDA, MG, LD, CRP, FEBC, B12FOL, PTT, C4, CCPAB, FERI, IOCAL, CORTI, CK, C3, REJEC #### [address] [address] Chief Technology Officer: Jasbir Montalvo MD Immature granulocytes/100 WBC (Bld) 0 % Normal 0 [facility] Comment on above: Performed By: #### P HO, CDP, RA, PT, SED, BMPX, FREDA, MG, LD, CRP, FEBC, B12FOL, PTT, C4, CCPAB, FERI, IOCAL, CORTI, CK, C3, REJEC #### [address] [address] Chief Technology Officer: Jasbir Montalvo MD Lymphocytes (Bld) [#/Vol] 3.23 10*3/uL Normal 1.10-3.70 [facility] Comment on above: Performed By: #### P HO, CDP, RA, PT, SED, BMPX, FREDA, MG, LD, CRP, FEBC, B12FOL, PTT, C4, CCPAB, FERI, IOCAL, CORTI, CK, C3, REJEC #### [address] [address] Chief Technology Officer: Jasbir Montalvo MD Lymphocytes/100 WBC (Bld) 29 % Normal 24-43 [facility] Comment on above: Performed By: #### P HO, CDP, RA, PT, SED, BMPX, FREDA, MG, LD, CRP, FEBC, B12FOL, PTT, C4, CCPAB, FERI, IOCAL, CORTI, CK, C3, REJEC #### [address] [address] Chief Technology Officer: Jasbir Montalvo MD MCH (RBC) [Entitic mass] 31.2 pg Normal 25.2-33.5 [facility] Comment on above: Performed By: #### P HO, CDP, RA, PT, SED, BMPX, FREDA, MG, LD, CRP, FEBC, B12FOL, PTT, C4, CCPAB, FERI, IOCAL, CORTI, CK, C3, REJEC #### [address] [address] Chief Technology Officer: Jasbir Montalvo MD MCHC (RBC) [Mass/Vol] 31.0 g/dL Normal 28.4-34.8 [facility] Comment on above: Performed By: #### P HO, CDP, RA, PT, SED, BMPX, FREDA, MG, LD, CRP, FEBC, B12FOL, PTT, C4, CCPAB, FERI, IOCAL, CORTI, CK, C3, REJEC #### [address] [address] Chief Technology Officer: Jasbir Montalvo MD MCV (RBC) [Entitic vol] 100.7 fL Normal 82.6-102.9 [facility] Comment on above: Performed By: #### P HO, CDP, RA, PT, SED, BMPX, FREDA, MG, LD, CRP, FEBC, B12FOL, PTT, C4, CCPAB, FERI, IOCAL, CORTI, CK, C3, REJEC #### [address] [address] Chief Technology Officer: Jasbir Montalvo MD Monocytes (Bld) [#/Vol] 0.93 10*3/uL Normal 0.10-1.20 [facility] Comment on above: Performed By: #### P HO, CDP, RA, PT, SED, BMPX, FREDA, MG, LD, CRP, FEBC, B12FOL, PTT, C4, CCPAB, FERI, IOCAL, CORTI, CK, C3, REJEC #### [address] [address] Chief Technology Officer: Jasbir Montalvo MD Monocytes/100 WBC (Bld) 8 % Normal 3-12 [facility] Comment on above: Performed By: #### P HO, CDP, RA, PT, SED, BMPX, FREDA, MG, LD, CRP, FEBC, B12FOL, PTT, C4, CCPAB, FERI, IOCAL, CORTI, CK, C3, REJEC #### [address] [address] Chief Technology Officer: Jasbir Montalvo MD Neutrophil (Seg) 58 % Normal 36-65 [facility] Comment on above: Performed By: #### P HO, CDP, RA, PT, SED, BMPX, FREDA, MG, LD, CRP, FEBC, B12FOL, PTT, C4, CCPAB, FERI, IOCAL, CORTI, CK, C3, REJEC #### [address] [address] Chief Technology Officer: Jasbir Montalvo MD NRBC Automated 0.0 per 100 WBC Normal 0.0 [facility] Comment on above: Performed By: #### P HO, CDP, RA, PT, SED, BMPX, FREDA, MG, LD, CRP, FEBC, B12FOL, PTT, C4, CCPAB, FERI, IOCAL, CORTI, CK, C3, REJEC #### [address] [address] Chief Technology Officer: Jasbir Montalvo MD Platelet mean volume (Bld) [Entitic vol] 10.3 fL Normal 8.1-13.5 [facility] Comment on above: Performed By: #### P HO, CDP, RA, PT, SED, BMPX, FREDA, MG, LD, CRP, FEBC, B12FOL, PTT, C4, CCPAB, FERI, IOCAL, CORTI, CK, C3, REJEC #### [address] [address] Chief Technology Officer: Jasbir Montalvo MD Platelets (Bld) [#/Vol] 230 10*3/uL Normal 138-453 [facility] Comment on above: Performed By: #### P HO, CDP, RA, PT, SED, BMPX, FREDA, MG, LD, CRP, FEBC, B12FOL, PTT, C4, CCPAB, FERI, IOCAL, CORTI, CK, C3, REJEC #### [address] [id number] Chief Technology Officer: Jasbir Montalvo MD RBC (Bld) [#/Vol] 4.61 10*6/uL Normal 4.21-5.77 [facility] Comment on above: Performed By: #### P HO, CDP, RA, PT, SED, BMPX, FREDA, MG, LD, CRP, FEBC, B12FOL, PTT, C4, CCPAB, FERI, IOCAL, CORTI, CK, C3, REJEC #### [address] [id number] Chief Technology Officer: Jasbir Montalvo MD WBC (Bld) [#/Vol] 11.1 10*3/uL Normal 3.5-11.3 [facility] Comment on above: Performed By: #### P HO, CDP, RA, PT, SED, BMPX, FREDA, MG, LD, CRP, FEBC, B12FOL, PTT, C4, CCPAB, FERI, IOCAL, CORTI, CK, C3, REJEC #### [address] [address] Chief Technology Officer: Jasbir Montalvo MD EEGon 12-02-2023 Ayo Torres [...] to moderate encephalopathy . Ayo Torres MD [facility] EEGOrdered By: Ayo Torres on 12-02-2023 [facility] Work Phone: Glucose,Whole Bloodon 2023 Glucose [Mass/Vol] 179 mg/dL High 75-110 [facility] Glucose [Mass/Vol] 169 mg/dL High 75-110 [facility] Glucose [Mass/Vol] 172 mg/dL High 75-110 [facility] Glucose [Mass/Vol] 117 mg/dL High 75-110 [facility] POC Glucose Fingerstickon Glucose [Mass/Vol] 179 mg/dL High 75 - 110 mg/dL [facility] Interpretation and review of laboratory results Abnormal [facility] Glucose [Mass/Vol] 169 mg/dL High 75 - 110 mg/dL [facility] Interpretation and review of laboratory results Abnormal [facility] Glucose [Mass/Vol] 172 mg/dL High 75 - 110 mg/dL [facility] Interpretation and review of laboratory results Abnormal [facility] Glucose [Mass/Vol] 117 mg/dL High 75 - 110 mg/dL [facility] Interpretation and review of laboratory results Abnormal [facility] PTon 12-02-2023 INR Coag (PPP) [Relative time] 2.8 {INR} Normal [facility] Comment on above: Result Comment: Therapeutic Range: Moderate Anticoagulant Intensity: INR = 2.0-3.0 High Anticoagulant Intensity: INR = 2.5-3.5 Performed By: #### P HO, CDP, RA, PT, SED, BMPX, FREDA, MG, LD, CRP, FEBC, B12FOL, PTT, C4, CCPAB, FERI, IOCAL, CORTI, CK, C3, REJEC #### [employer] [address] [place] [id number] Chief Technology Officer: Jasbir Montalvo MD PT Coag (PPP) [Time] 28.9 s High 11.7-14.9 [facility] Comment on above: Performed By: #### P HO, CDP, RA, PT, SED, BMPX, FREDA, MG, LD, CRP, FEBC, B12FOL, PTT, C4, CCPAB, FERI, IOCAL, CORTI, CK, C3, REJEC #### [employer] [facility] [place], [place] [id number] Chief Technology Officer: Jasbir Montalvo MD Protime-INRon 12-02-2023 INR Coag (PPP) [Relative time] 2.8 {INR} [facility] Comment on above: Therapeutic Range: Moderate Anticoagulant Intensity: INR = 2.0-3.0 High Anticoagulant Intensity: INR = 2.5-3.5 Interpretation and review of laboratory results Abnormal [facility] PT Coag (PPP) [Time] 28.9 s High [facility] Aldolaseon 12-01-2023 Aldolase 6.9 U/L Normal 1.2-7.6 [facility] Comment on above: Result Comment: (NOT E) This specimen is Hemolyzed. This may cause the results to be falsely increased. REFERENCE INTERVAL: Aldolase Access complete set of age- and/or gender-specific reference intervals for this test in the [facility] Test Directory (27 bards). Performed By: [employer] [address] [place] [id number] Floor Covering Contractor: Uriah Prasad MD, PhD CLIA Number: [id number] Performed By: #### P HO, CDP, RA, PT, SED, BMPX, FREDA, MG, LD, CRP, FEBC, B12FOL, PTT, C4, CCPAB, FERI, IOCAL, CORTI, CK, C3, REJEC #### [employer] [address] [place] [address] [id number] Chief Technology Officer: Jasbir Montalvo MD Aldolase [Catalytic activity/Vol] 6.9 mU/mL 1.2 - 7.6 U/L [facility] Comment on above: (NOTE) This specimen is Hemolyzed. This may cause the results to be falsely increased. REFERENCE INTERVAL: Aldolase Access complete set of age- and/or gender-specific reference intervals for this test in the [facility] Test Directory (27 bards). Performed By: [employer] [address] [place] [id number] Floor Covering Contractor: Uriah Prasad MD, PhD CLIA Number: [id number] [facility] Anti CCPon 12-01-2023 Anti CCP 1.5 U/mL Normal 0.0-7.0 [facility] Comment on above: Result Comment: Reference Range: <7.0 Negative 7.0-10.0 Equivocal >10.0 Positive Performed By: #### P HO, CDP, RA, PT, SED, BMPX, FREDA, MG, LD, CRP, FEBC, B12FOL, PTT, C4, CCPAB, FERI, IOCAL, CORTI, CK, C3, REJEC #### [address] [address] Chief Technology Officer: Jasbir Montalvo MD Basic Metab w/rfx MGon 12-01 Anion gap [Moles/Vol] 10 mmol/L Normal 9-17 [facility] Comment on above: Performed By: #### P HO, CDP, RA, PT, SED, BMPX, FREDA, MG, LD, CRP, FEBC, B12FOL, PTT, C4, CCPAB, FERI, IOCAL, CORTI, CK, C3, REJEC #### [facility] [employer] [address] [place] [address] Chief Technology Officer: Jasbir Montalvo MD Calcium [Mass/Vol] 8.9 mg/dL Normal 8.6-10.4 [facility] Comment on above: Performed By: #### P HO, CDP, RA, PT, SED, BMPX, FREDA, MG, LD, CRP, FEBC, B12FOL, PTT, C4, CCPAB, FERI, IOCAL, CORTI, CK, C3, REJEC #### [facility] [employer] [address] [place] [address] Chief Technology Officer: Jasbir Montalvo MD Chloride [Moles/Vol] 108 mmol/L High 98-107 [facility] Comment on above: Performed By: #### P HO, CDP, RA, PT, SED, BMPX, FREDA, MG, LD, CRP, FEBC, B12FOL, PTT, C4, CCPAB, FERI, IOCAL, CORTI, CK, C3, REJEC #### [facility] [employer] [address] [place] [address] Chief Technology Officer: Jasbir Montalvo MD CO2 [Moles/Vol] 22 mmol/L Normal 20- [facility] Comment on above: Performed By: #### P HO, CDP, RA, PT, SED, BMPX, FREDA, MG, LD, CRP, FEBC, B12FOL, PTT, C4, CCPAB, FERI, IOCAL, CORTI, CK, C3, REJEC #### [address] [address] Chief Technology Officer: Jasbir Montalvo MD Creatinine [Mass/Vol] 1.6 mg/dL High 0.7-1.2 [facility] Comment on above: Performed By: #### P HO, CDP, RA, PT, SED, BMPX, FREDA, MG, LD, CRP, FEBC, B12FOL, PTT, C4, CCPAB, FERI, IOCAL, CORTI, CK, C3, REJEC #### [facility] [employer] [address] [place] [address] Chief Technology Officer: Jasbir Montalvo MD GFR/1.73 sq M.predicted among non-blacks MDRD (S/P/Bld) [Vol rate/Area] 48 mL/min/{1.73_m2} Low >60 [facility] Comment on above: Result Comment: These results [...] IOCAL, CORTI, CK, C3, REJEC #### [address] [id number] Chief Technology Officer: Jasbir Montalvo MD Glucose [Mass/Vol] 144 mg/dL High 70-99 [facility] Comment on above: Performed By: #### P HO, CDP, RA, PT, SED, BMPX, FREDA, MG, LD, CRP, FEBC, B12FOL, PTT, C4, CCPAB, FERI, IOCAL, CORTI, CK, C3, REJEC #### [address] [phone] Chief Technology Officer: Jasbir Montalvo MD Potassium [Moles/Vol] 3.8 mmol/L Normal 3.7-5.3 [facility] Comment on above: Performed By: #### P HO, CDP, RA, PT, SED, BMPX, FREDA, MG, LD, CRP, FEBC, B12FOL, PTT, C4, CCPAB, FERI, IOCAL, CORTI, CK, C3, REJEC #### [address] [phone] Chief Technology Officer: Jasbir Montalvo MD Sodium [Moles/Vol] 140 mmol/L Normal 135-144 [facility] Comment on above: Performed By: #### P HO, CDP, RA, PT, SED, BMPX, FREDA, MG, LD, CRP, FEBC, B12FOL, PTT, C4, CCPAB, FERI, IOCAL, CORTI, CK, C3, REJEC #### [address] [address] Chief Technology Officer: Jasbir Montalvo MD Urea nitrogen [Mass/Vol] 39 mg/dL High 8- [facility] Comment on above: Performed By: #### P HO, CDP, RA, PT, SED, BMPX, FREDA, MG, LD, CRP, FEBC, B12FOL, PTT, C4, CCPAB, FERI, IOCAL, CORTI, CK, C3, REJEC #### [facility] [address] [place], [place] [phone] Chief Technology Officer: Jasbir Montalvo MD Basic Metabolic Panel w/ Ref sarah to MGon 12-01-2023 Anion gap [Moles/Vol] 10 mmol/L 9 - 17 mmol/L [facility] [employer] Calcium [Mass/Vol] 8.9 mg/dL 8.6 - 10. 4 mg/dL [facility] [employer] Chloride [Moles/Vol] 108 mmol/L High 98 - 10 7 mmol/L [facility] [employer] CO2 [Moles/Vol] 22 mmol/L 20 - 31 mmol/L [facility] [employer] Creatinine [Mass/Vol] 1.6 mg/dL High 0.7 - 1.2 mg/dL [facility] [employer] GFR/1.73 sq M.predicted MDRD (S/P/Bld) [Vol rate/Area] 48 mL/min/{1.73_m2} Low - PINF [facility] Comment on above: These results [...] 144 mg/dL High 70 - 99 mg/dL [facility] Interpretation and review of laboratory results Abnormal [facility] [employer] Potassium [Moles/Vol] 3.8 mmol/L 3.7 - 5.3 mmol/L [facility] [employer] Sodium [Moles/Vol] 140 mmol/L 135 - 144 mmol/L [facility] Urea nitrogen [Mass/Vol] 39 mg/dL High 8 - 23 mg/dL [facility] CBC with Auto Differentialon 12-01-2023 Basophils (Bld) [#/Vol] 0.08 10*3/uL [facility] Basophils/100 WBC (Bld) 1 % 0 - 2 % [facility] Eosinophils (Bld) [#/Vol] 0.37 10*3/uL [facility] Eosinophils/100 WBC (Bld) 3 % 1 - 4 % [facility] Erythrocyte distribution width (RBC) [Ratio] 14.4 % 11.8 - 14.4 % [facility] Hematocrit (Bld) [Volume fraction] 46.3 % 40.7 - 50.3 % [facility] Hemoglobin (Bld) [Mass/Vol] 14.6 g/dL 13.0 - 17.0 g/dL [facility] Immature granulocytes (Bld) [#/Vol] 0.04 10*3/uL [facility] Immature granulocytes/100 WBC (Bld) 0 % 0 [facility] Lymphocytes/100 WBC (Bld) 25 % 24 - 43 % [facility] Lymphocytes/100 WBC (Bld) 2.76 % [facility] MCH (RBC) [Entitic mass] 31.2 pg 25.2 - 33.5 pg [facility] MCHC (RBC) [Mass/Vol] 31.5 g/dL 28.4 - 34.8 g/dL [facility] MCV (RBC) [Entitic vol] 98.9 fL 82.6 - 102.9 fL [facility] Monocytes/100 WBC (Bld) 8 % 3 - 12 % [facility] Monocytes/100 WBC (Bld) 0.82 % [facility] Neutrophils/100 WBC (Bld) 63 % 36 - 65 % [facility] Nucleated RBC/100 WBC (Bld) [Ratio] 0.0 % 0.0 per 100 WBC [facility] Platelet mean volume (Bld) [Entitic vol] 10.4 fL 8.1 - 13.5 fL [facility] Platelets (Bld) [#/Vol] 223 10*3/uL [facility] RBC (Bld) [#/Vol] 4.68 10*6/uL 4.21 - 5.7 7 m/uL [facility] Segmented neutrophils/100 WBC (Bld) 6.78 % [facility] WBC other (Bld) [#/Vol] 10.[address] [facility] CBC with Diffon 12-01-2023 Abs. Basophil 0.08 k/uL Normal 0.00-0.20 [facility] Comment on above: Performed By: #### P HO, CDP, RA, PT, SED, BMPX, FREDA, MG, LD, CRP, FEBC, B12FOL, PTT, C4, CCPAB, FERI, IOCAL, CORTI, CK, C3, REJEC #### [facility] [employer] [address] [place] [address] Chief Technology Officer: Jasbir Montalvo MD Abs.Imm.Granulocyte 0.04 k/uL Normal 0.00-0.30 [facility] Comment on above: Performed By: #### P HO, CDP, RA, PT, SED, BMPX, FREDA, MG, LD, CRP, FEBC, B12FOL, PTT, C4, CCPAB, FERI, IOCAL, CORTI, CK, C3, REJEC #### [employer] [address] [place] [address] Chief Technology Officer: Jasbir Montalvo MD Abs.Neutrophil (Seg) 6.78 k/uL Normal 1.50-8.10 [facility] Comment on above: Performed By: #### P HO, CDP, RA, PT, SED, BMPX, FREDA, MG, LD, CRP, FEBC, B12FOL, PTT, C4, CCPAB, FERI, IOCAL, CORTI, CK, C3, REJEC #### [facility] [employer] [address] [place] [address] Chief Technology Officer: Jasbir Montlavo MD Basophils/100 WBC (Bld) 1 % Normal 0-2 [facility] Comment on above: Performed By: #### P HO, CDP, RA, PT, SED, BMPX, FREDA, MG, LD, CRP, FEBC, B12FOL, PTT, C4, CCPAB, FERI, IOCAL, CORTI, CK, C3, REJEC #### [address] [address] Chief Technology Officer: Jasbir Montalvo MD Eosinophils (Bld) [#/Vol] 0.37 10*3/uL Normal 0.00-0.44 [facility] Comment on above: Performed By: #### P HO, CDP, RA, PT, SED, BMPX, FREDA, MG, LD, CRP, FEBC, B12FOL, PTT, C4, CCPAB, FERI, IOCAL, CORTI, CK, C3, REJEC #### [address] [address] Chief Technology Officer: Jasbir Montalvo MD Eosinophils/100 WBC (Bld) 3 % Normal 1-4 [facility] Comment on above: Performed By: #### P HO, CDP, RA, PT, SED, BMPX, FREDA, MG, LD, CRP, FEBC, B12FOL, PTT, C4, CCPAB, FERI, IOCAL, CORTI, CK, C3, REJEC #### [address] [address] Chief Technology Officer: Jasbir Montalvo MD Erythrocyte distribution width (RBC) [Ratio] 14.4 % Normal 11.8-14.4 [facility] Comment on above: Performed By: #### P HO, CDP, RA, PT, SED, BMPX, FREDA, MG, LD, CRP, FEBC, B12FOL, PTT, C4, CCPAB, FERI, IOCAL, CORTI, CK, C3, REJEC #### [address] [address] Chief Technology Officer: Jasbir Montalvo MD Hematocrit (Bld) [Volume fraction] 46.3 % Normal 40.7-50.3 [facility] Comment on above: Performed By: #### P HO, CDP, RA, PT, SED, BMPX, FREDA, MG, LD, CRP, FEBC, B12FOL, PTT, C4, CCPAB, FERI, IOCAL, CORTI, CK, C3, REJEC #### [address] [address] Chief Technology Officer: Jasbir Montalvo MD Hemoglobin (Bld) [Mass/Vol] 14.6 g/dL Normal 13.0-17.0 [facility] Comment on above: Performed By: #### P HO, CDP, RA, PT, SED, BMPX, FREDA, MG, LD, CRP, FEBC, B12FOL, PTT, C4, CCPAB, FERI, IOCAL, CORTI, CK, C3, REJEC #### [address] [address] Chief Technology Officer: Jasbir Montalvo MD Immature granulocytes/100 WBC (Bld) 0 % Normal 0 [facility] Comment on above: Performed By: #### P HO, CDP, RA, PT, SED, BMPX, FREDA, MG, LD, CRP, FEBC, B12FOL, PTT, C4, CCPAB, FERI, IOCAL, CORTI, CK, C3, REJEC #### [address] [address] Chief Technology Officer: Jasbir Montalvo MD Lymphocytes (Bld) [#/Vol] 2.76 10*3/uL Normal 1.10-3.70 [facility] Comment on above: Performed By: #### P HO, CDP, RA, PT, SED, BMPX, FREDA, MG, LD, CRP, FEBC, B12FOL, PTT, C4, CCPAB, FERI, IOCAL, CORTI, CK, C3, REJEC #### [address] [address] Chief Technology Officer: Jasbir Montalvo MD Lymphocytes/100 WBC (Bld) 25 % Normal 24-43 [facility] Comment on above: Performed By: #### P HO, CDP, RA, PT, SED, BMPX, FREDA, MG, LD, CRP, FEBC, B12FOL, PTT, C4, CCPAB, FERI, IOCAL, CORTI, CK, C3, REJEC #### [address] [address] Chief Technology Officer: Jasbir Montalvo MD MCH (RBC) [Entitic mass] 31.2 pg Normal 25.2-33.5 [facility] Comment on above: Performed By: #### P HO, CDP, RA, PT, SED, BMPX, FREDA, MG, LD, CRP, FEBC, B12FOL, PTT, C4, CCPAB, FERI, IOCAL, CORTI, CK, C3, REJEC #### [address] [address] Chief Technology Officer: Jasbir Montalvo MD MCHC (RBC) [Mass/Vol] 31.5 g/dL Normal 28.4-34.8 [facility] Comment on above: Performed By: #### P HO, CDP, RA, PT, SED, BMPX, FREDA, MG, LD, CRP, FEBC, B12FOL, PTT, C4, CCPAB, FERI, IOCAL, CORTI, CK, C3, REJEC #### [address] [address] Chief Technology Officer: Jasbir Montalvo MD MCV (RBC) [Entitic vol] 98.9 fL Normal 82.6-102.9 [facility] Comment on above: Performed By: #### P HO, CDP, RA, PT, SED, BMPX, FREDA, MG, LD, CRP, FEBC, B12FOL, PTT, C4, CCPAB, FERI, IOCAL, CORTI, CK, C3, REJEC #### [address] [id number] Chief Technology Officer: Jasbir Montalvo MD Monocytes (Bld) [#/Vol] 0.82 10*3/uL Normal 0.10-1.20 [facility] Comment on above: Performed By: #### P HO, CDP, RA, PT, SED, BMPX, FREDA, MG, LD, CRP, FEBC, B12FOL, PTT, C4, CCPAB, FERI, IOCAL, CORTI, CK, C3, REJEC #### [address] [id number] Chief Technology Officer: Jasbir Montalvo MD Monocytes/100 WBC (Bld) 8 % Normal 3-12 [facility] Comment on above: Performed By: #### P HO, CDP, RA, PT, SED, BMPX, FREDA, MG, LD, CRP, FEBC, B12FOL, PTT, C4, CCPAB, FERI, IOCAL, CORTI, CK, C3, REJEC #### [place] [id number] Chief Technology Officer: Jasbir Montalvo MD Neutrophil (Seg) 63 % Normal 36-65 [facility] Comment on above: Performed By: #### P HO, CDP, RA, PT, SED, BMPX, FREDA, MG, LD, CRP, FEBC, B12FOL, PTT, C4, CCPAB, FERI, IOCAL, CORTI, CK, C3, REJEC #### [place] [id number] Chief Technology Officer: Jasbir Montalvo MD NRBC Automated 0.0 per 100 WBC Normal 0.0 [facility] Comment on above: Performed By: #### P HO, CDP, RA, PT, SED, BMPX, FREDA, MG, LD, CRP, FEBC, B12FOL, PTT, C4, CCPAB, FERI, IOCAL, CORTI, CK, C3, REJEC #### [address] [id number] Chief Technology Officer: Jasbir Montalvo MD Platelet mean volume (Bld) [Entitic vol] 10.4 fL Normal 8.1-13.5 [facility] Comment on above: Performed By: #### P HO, CDP, RA, PT, SED, BMPX, FREDA, MG, LD, CRP, FEBC, B12FOL, PTT, C4, CCPAB, FERI, IOCAL, CORTI, CK, C3, REJEC #### [address] [id number] Chief Technology Officer: Jasbir Montalvo MD Platelets (Bld) [#/Vol] 223 10*3/uL Normal 138-453 [facility] Comment on above: Performed By: #### P HO, CDP, RA, PT, SED, BMPX, FREDA, MG, LD, CRP, FEBC, B12FOL, PTT, C4, CCPAB, FERI, IOCAL, CORTI, CK, C3, REJEC #### [address] [id number] Chief Technology Officer: Jasbir Montalvo MD RBC (Bld) [#/Vol] 4.68 10*6/uL Normal 4.21-5.77 [facility] Comment on above: Performed By: #### P HO, CDP, RA, PT, SED, BMPX, FREDA, MG, LD, CRP, FEBC, B12FOL, PTT, C4, CCPAB, FERI, IOCAL, CORTI, CK, C3, REJEC #### [address] [phone] Chief Technology Officer: Jasbir Montalvo MD WBC (Bld) [#/Vol] 10.9 10*3/uL Normal 3.5-11.3 [facility] Comment on above: Performed By: #### P HO, CDP, RA, PT, SED, BMPX, FREDA, MG, LD, CRP, FEBC, B12FOL, PTT, C4, CCPAB, FERI, IOCAL, CORTI, CK, C3, REJEC #### [address] [address] Chief Technology Officer: Jasbir Montalvo MD CT CERVICAL SPINE WO MIGUELINA Solomon 12-01-2023 CT CERVICAL SPINE WO CONTRAST EXAMINATION: [...] HISTORY: rule out myelopathy, radiculopathy. cannot have CRANIOLOGIST PROVIDED HISTORY: rule out myelopathy, radiculopathy. cannot [...] Erica Garcia MD 12/01/23 Final result Normal [facility] CT Cervical spine WO miguelina solomon 12-01-2023 Canal effacement at C6-7. [facility] RIS CONSOLIDATED EXAMINATION: CT OF THE CERVICAL [...] HISTORY: rule out myelopathy, radiculopathy. cannot have CRANIOLOGIST PROVIDED HISTORY: rule out myelopathy, radiculopathy. cannot [...] facet arthropathy.. Mild bilateral foraminal narrowing [facility] Erica Erazo MD - 12/01/2023 EXAMINATION: CT [...] HISTORY: rule out myelopathy, radiculopathy. cannot have CRANIOLOGIST PROVIDED HISTORY: rule out myelopathy, radiculopathy. cannot [...] foraminal narrowing IMPRESSION: Canal effacement at C6-7. [facility] Radiology Study observation (narrative) [facility] CT Cervical spine WO contras tOrdered By: Erica Garcia on 12-01-2023 [facility] Work Phone: CYCLIC CITRUL PEPTIDE ANTIBO DY, IGGon 12-01-2023 Cyclic citrullinated peptide Ab IA Qn (S) 1.5 U/mL 0.0 - 7.0 U/mL [facility] Comment on above: Reference Range: <7.0 Negative 7.0-10.0 Equivocal >10.0 Positive [facility] FL MODIFIED BARIUM SWALLOW W VIDEOon 12-01-2023 [place] MODIFIED BARIUM SWALLOW W VIDEO EXAMINATION: MODIFIED BARIUM SWALLOW WAS PERFORMED IN CONJUNCTION WITH SPEECH PATHOLOGY SERVICES TECHNIQUE: Under fluoroscopic evaluation cineradiography/video radiography recordings were performed in conjunction with the speech-language pathologist (BOSTON CUTTER). Various liquid, solid and/or semi-solid barium preparations [...] Micah Davis MD 12/01/23 Final result Normal [facility] 1. Trace penetration without aspiration with the thin liquid substance by straw. 2. No penetration or aspiration with the above administered substances. Please see separate speech pathology report for full discussion of findings and recommendations. [facility] RIS CONSOLIDATED EXAMINATION: MODIFIED BARIUM SWALLOW WAS PERFORMED IN CONJUNCTION WITH SPEECH PATHOLOGY SERVICES TECHNIQUE: Under fluoroscopic evaluation cineradiography/video radiography recordings were performed in conjunction with the speech-language pathologist (BOSTON CUTTER). Various liquid, solid and/or semi-solid barium preparations [...] with the thin liquid substance by straw. [facility] Micah Johnson MD - 12/01/2023 EXAMINATION: MODIFIED BARIUM SWALLOW WAS PERFORMED IN CONJUNCTION WITH SPEECH PATHOLOGY SERVICES TECHNIQUE: Under fluoroscopic evaluation cineradiography/video radiography recordings were performed in conjunction with the speech-language pathologist (BOSTON CUTTER). Various liquid, solid and/or semi-solid barium preparations [...] for full discussion of findings and recommendations. [facility] Radiology Study observation (narrative) [facility] MODIFIED BARIUM SWALLOW W VIDEOOrdered By: Micah Davis on 12-01-2023 [facility] Work Phone: Glucose,Whole Bloodon 2023 Glucose [Mass/Vol] 168 mg/dL High 75-110 [facility] Glucose [Mass/Vol] 108 mg/dL Normal 75-110 [facility] Glucose [Mass/Vol] 226 mg/dL High 75-110 [facility] Glucose [Mass/Vol] 150 mg/dL High 75-110 [facility] Glucose [Mass/Vol] 148 mg/dL High 75-110 [facility] POC Glucose Fingerstickon Glucose [Mass/Vol] 168 mg/dL High 75 - 110 mg/dL [facility] Interpretation and review of laboratory results Abnormal [facility] Glucose [Mass/Vol] 108 mg/dL 75 - 110 mg/dL [facility] Glucose [Mass/Vol] 226 mg/dL High 75 - 110 mg/dL [facility] Interpretation and review of laboratory results Abnormal [facility] Glucose [Mass/Vol] 150 mg/dL High 75 - 110 mg/dL [facility] Interpretation and review of laboratory results Abnormal [facility] Glucose [Mass/Vol] 148 mg/dL High 75 - 110 mg/dL [facility] Interpretation and review of laboratory results Abnormal [facility] PSA Screeningon 12-01-2023 Prostate specific Ag [Mass/Vol] 1.50 ng/mL 0.00 - 4.00 ng/mL [facility] Comment on above: The Saray ECLIA as say is used. Results obtained with different assay methods cannot be used interchangeably. [facility] PSA, Screeningon 12-01-2023 Prostatic Spec. Ag 1.50 ng/mL Normal 0.00-4.00 [facility] Comment on above: Result Comment: The Saray ECLIA assay is used. Results obtained with different assay methods cannot be used interchangeably. Performed By: #### P HO, CDP, RA, PT, SED, BMPX, FREDA, MG, LD, CRP, FEBC, B12FOL, PTT, C4, CCPAB, FERI, IOCAL, CORTI, CK, C3, REJEC #### [facility] [employer] [facility] [place] [address] Chief Technology Officer: Jasbir Montalvo MD PTon 12-01-2023 INR Coag (PPP) [Relative time] 2.8 {INR} Normal [facility] Comment on above: Result Comment: Therapeutic Range: Moderate Anticoagulant Intensity: INR = 2.0-3.0 High Anticoagulant Intensity: INR = 2.5-3.5 Performed By: #### P HO, CDP, RA, PT, SED, BMPX, FREDA, MG, LD, CRP, FEBC, B12FOL, PTT, C4, CCPAB, FERI, IOCAL, CORTI, CK, C3, REJEC #### [address] [address] Chief Technology Officer: Jasbir Montalvo MD PT Coag (PPP) [Time] 28.5 s High 11.7-14.9 [facility] Comment on above: Performed By: #### P HO, CDP, RA, PT, SED, BMPX, FREDA, MG, LD, CRP, FEBC, B12FOL, PTT, C4, CCPAB, FERI, IOCAL, CORTI, CK, C3, REJEC #### [address] [address] Chief Technology Officer: Jasbir Montalvo MD Protime-INRon 12-01-2023 INR Coag (PPP) [Relative time] 2.8 {INR} [facility] Comment on above: Therapeutic Range: Moderate Anticoagulant Intensity: INR = 2.0-3.0 High Anticoagulant Intensity: INR = 2.5-3.5 Interpretation and review of laboratory results Abnormal [facility] PT Coag (PPP) [Time] 28.5 s High [facility] Troponinon 12-01-2023 Troponin, High Sens 23 ng/L High 0-22 [facility] Comment on above: Result Comment: High Sensitivity Troponin values cannot be compared with other Troponin methodologies. Performed By: #### P HO, CDP, RA, PT, SED, BMPX, FREDA, MG, LD, CRP, FEBC, B12FOL, PTT, C4, CCPAB, FERI, IOCAL, CORTI, CK, C3, REJEC #### [address] [address] Chief Technology Officer: Jasbir Montalvo MD Interpretation and review of laboratory results Abnormal [facility] Troponin I.cardiac High sensitivity method [Mass/Vol] 23 ng/L High 0 - 22 ng/L [facility] Comment on above: High Sensitivity Tro ponin values cannot be compared with other Troponin methodologies. [facility] APTTon 11-30-2023 aPTT Coag (Bld) [Time] 38.4 s High 23.0-36.5 [facility] Comment on above: Result Comment: IV Heparin Therapy Range: 66.0-92.0 sec Performed By: #### P HO, CDP, RA, PT, SED, BMPX, FREDA, MG, LD, CRP, FEBC, B12FOL, PTT, C4, CCPAB, FERI, IOCAL, CORTI, CK, C3, REJEC ####[facility] [id number] [place] [address] [id number] lab Director: Jasbir Montalvo MD aPTT Coag (Bld) [Time] 38.4 s High [facility] Comment on above: IV Heparin Therapy Range: 66.0-92.0 sec B12/Folate Panelon Cobalamin (Vitamin B12) [Mass/Vol] 397 pg/mL Normal 232-1245 [facility] Comment on above: Performed By: #### P HO, CDP, RA, PT, SED, BMPX, FREDA, MG, LD, CRP, FEBC, B12FOL, PTT, C4, CCPAB, FERI, IOCAL, CORTI, CK, C3, REJEC ####[facility] [id number] [place] [address] [id number] lab Director: Jasbir Montalvo MD Folic Acid 6.2 ng/mL Normal >4.8 [facility] Comment on above: Performed By: #### P HO, CDP, RA, PT, SED, BMPX, FREDA, MG, LD, CRP, FEBC, B12FOL, PTT, C4, CCPAB, FERI, IOCAL, CORTI, CK, C3, REJEC ####[facility] [id number] [place] [address] [id number] lab Director: Jasbir Montalvo MD BLOOD GAS, VENOUSon 11-30-19 Carboxyhemoglobin (Bld) [Mass fraction] 1.6 % 0 - 5 % [facility] Comment on above: Reference Range: Non-Smokers 0-2% Average Smoker 2-4% Heavy Smoker <10% HCO3 (Bld) [Moles/Vol] 26.1 mmol/L 24 - 30 mmol/L [facility] Interpretation and review of laboratory results Abnormal [facility] Negative Base Excess, Pop 1.1 mmol/L 0.0 - 2.0 mmol/L [facility] Oxygen saturation in Blood 84.3 % 60.0 - 85.0 % [facility] Oxygen/Inspired gas Respiratory system --on ventilator INFORMATION NOT PROVIDED [facility] pCO2, Pop 55.2 High [facility] pH, Pop 7.297 Low 7.320 - 7.420 [facility] pO2, Pop 55.[address] [facility] Basic Metab w/rfx MGon 11-30 Glucose [Mass/Vol] 49 mg/dL Low 70-99 [facility] Comment on above: Performed By: #### P HO, CDP, RA, PT, SED, BMPX, FREDA, MG, LD, CRP, FEBC, B12FOL, PTT, C4, CCPAB, FERI, IOCAL, CORTI, CK, C3, REJEC ####[place] [address] [facility] Director: Jasbir Montalvo MD Anion gap [Moles/Vol] 11 mmol/L Normal 9-17 [facility] Comment on above: Performed By: #### P HO, CDP, RA, PT, SED, BMPX, FREDA, MG, LD, CRP, FEBC, B12FOL, PTT, C4, CCPAB, FERI, IOCAL, CORTI, CK, C3, REJEC ####[place] [address] [place], [place] [id number] [facility] Director: Jasbir Montalvo MD Calcium [Mass/Vol] 8.9 mg/dL Normal 8.6-10.4 [facility] Comment on above: Performed By: #### P HO, CDP, RA, PT, SED, BMPX, FREDA, MG, LD, CRP, FEBC, B12FOL, PTT, C4, CCPAB, FERI, IOCAL, CORTI, CK, C3, REJEC ####[address] [id number] [facility] Director: Jasbir Montalvo MD Chloride [Moles/Vol] 114 mmol/L High 98-107 [facility] Comment on above: Performed By: #### P HO, CDP, RA, PT, SED, BMPX, FREDA, MG, LD, CRP, FEBC, B12FOL, PTT, C4, CCPAB, FERI, IOCAL, CORTI, CK, C3, REJEC ####[address] [address] lab Director: Jasbir Montalvo MD CO2 [Moles/Vol] 21 mmol/L Normal 20-31 [facility] Comment on above: Performed By: #### P HO, CDP, RA, PT, SED, BMPX, FERDA, MG, LD, CRP, FEBC, B12FOL, PTT, C4, CCPAB, FERI, IOCAL, CORTI, CK, C3, REJEC ####[address] [address] lab Director: Jasbir Montalvo MD Creatinine [Mass/Vol] 1.5 mg/dL High 0.7-1.2 [facility] Comment on above: Performed By: #### P HO, CDP, RA, PT, SED, BMPX, FREDA, MG, LD, CRP, FEBC, B12FOL, PTT, C4, CCPAB, FERI, IOCAL, CORTI, CK, C3, REJEC ####[address] [address] lab Director: Jasbir Montalvo MD GFR/1.73 sq M.predicted among non-blacks MDRD (S/P/Bld) [Vol rate/Area] 52 mL/min/{1.73_m2} Low >60 [facility] Comment on above: Result Comment: These results [...] CCPAB, FERI, IOCAL, CORTI, CK, C3, REJEC ####[place] [phone] [facility] Director: Jasbir Montalvo MD Potassium [Moles/Vol] 3.7 mmol/L Normal 3.7-5.3 [facility] Comment on above: Performed By: #### P HO, CDP, RA, PT, SED, BMPX, FREDA, MG, LD, CRP, FEBC, B12FOL, PTT, C4, CCPAB, FERI, IOCAL, CORTI, CK, C3, REJEC ####[place] [phone] [facility] Director: Jasbir Montalvo MD Sodium [Moles/Vol] 146 mmol/L High 135-144 [facility] Comment on above: Performed By: #### P HO, CDP, RA, PT, SED, BMPX, FREDA, MG, LD, CRP, FEBC, B12FOL, PTT, C4, CCPAB, FERI, IOCAL, CORTI, CK, C3, REJEC ####[address] [id number] Lab Director: Jasbir Montalvo MD Urea nitrogen [Mass/Vol] 37 mg/dL High 8-23 [facility] Comment on above: Performed By: #### P HO, CDP, RA, PT, SED, BMPX, FREDA, MG, LD, CRP, FEBC, B12FOL, PTT, C4, CCPAB, FERI, IOCAL, CORTI, CK, C3, REJEC ####[facility] Hospital[facility] Dance [id number] [place] [address] lab Director: Jasbir Montalvo MD Basic Metabolic Panel w/ Ref sarah to MGon 11-30-2023 Anion gap [Moles/Vol] 11 mmol/L 9 - 17 mmol/L [employer] Calcium [Mass/Vol] 8.9 mg/dL 8.6 - 10. 4 mg/dL [employer] Chloride [Moles/Vol] 114 mmol/L High 98 - 10 7 mmol/L [employer] CO2 [Moles/Vol] 21 mmol/L 20 - 31 mmol/L [employer] Creatinine [Mass/Vol] 1.5 mg/dL High 0.7 - 1.2 mg/dL [facility] GFR/1.73 sq M.predicted MDRD (S/P/Bld) [Vol rate/Area] 52 mL/min/{1.73_m2} Low - PINF [facility] [employer] Comment on above: These results are not [...] 49 mg/dL Low 70 - 99 mg/dL [facility] Interpretation and review of laboratory results Abnormal [facility] Potassium [Moles/Vol] 3.7 mmol/L 3.7 - 5.3 mmol/L [facility] [employer] Sodium [Moles/Vol] 146 mmol/L High 135 - 144 mmol/L [employer] Urea nitrogen [Mass/Vol] 37 mg/dL High 8 - 23 mg/dL [facility] C-Reactive Proteinon 024 CRP [Mass/Vol] 4.8 mg/L Normal 0.0-5.0 [facility] Comment on above: Performed By: #### P HO, CDP, RA, PT, SED, BMPX, FREDA, MG, LD, CRP, FEBC, B12FOL, PTT, C4, CCPAB, FERI, IOCAL, CORTI, CK, C3, REJEC #### [facility] [address] [place] [address] [id number] Chief Technology Officer: Jasbir Montalvo MD CRP High sensitivity method [Mass/Vol] 4.8 mg/L 0.0 - 5.0 mg/L [facility] C3on 11-30-2023 C3 146 mg/dL Normal 90-180 [facility] Comment on above: Performed By: #### P HO, CDP, RA, PT, SED, BMPX, FREDA, MG, LD, CRP, FEBC, B12FOL, PTT, C4, CCPAB, FERI, IOCAL, CORTI, CK, C3, REJEC #### [facility] [employer] [address] [place] [address] Chief Technology Officer: Jasbir Montalvo MD C3 COMPLEMENTon 11-30-2023 Complement C3 [Mass/Vol] 146 mg/dL 90 - 180 mg/dL [facility] C4on 11-30-2023 C4 24 mg/dL Normal 10-40 [facility] Comment on above: Performed By: #### P HO, CDP, RA, PT, SED, BMPX, FREDA, MG, LD, CRP, FEBC, B12FOL, PTT, C4, CCPAB, FERI, IOCAL, CORTI, CK, C3, REJEC #### [facility] [employer] [address] [place] [address] Chief Technology Officer: Jasbir Montalvo MD C4 COMPLEMENTon 11-30-2023 Complement C4 [Mass/Vol] 24 mg/dL 10 - 40 mg/dL [facility] CBC with Auto Differentialon 11-30-2023 Basophils (Bld) [#/Vol] 0.08 10*3/uL [facility] Basophils/100 WBC (Bld) 1 % 0 - 2 % [facility] Eosinophils (Bld) [#/Vol] 0.31 10*3/uL [facility] Eosinophils/100 WBC (Bld) 3 % 1 - 4 % [facility] Erythrocyte distribution width (RBC) [Ratio] 14.2 % 11.8 - 14.4 % [facility] Hematocrit (Bld) [Volume fraction] 49.3 % 40.7 - 50.3 % [facility] Hemoglobin (Bld) [Mass/Vol] 15.4 g/dL 13.0 - 17.0 g/dL [facility] Immature granulocytes (Bld) [#/Vol] [facility] Immature granulocytes/100 WBC (Bld) 0 % 0 [facility] Lymphocytes/100 WBC (Bld) 26 % 24 - 43 % [facility] Lymphocytes/100 WBC (Bld) 2.64 % [facility] MCH (RBC) [Entitic mass] 31.2 pg 25.2 - 33.5 pg [facility] MCHC (RBC) [Mass/Vol] 31.2 g/dL 28.4 - 34.8 g/dL [facility] MCV (RBC) [Entitic vol] 99.8 fL 82.6 - 102.9 fL [facility] Monocytes/100 WBC (Bld) 7 % 3 - 12 % [facility] Monocytes/100 WBC (Bld) 0.74 % [facility] Neutrophils/100 WBC (Bld) 63 % 36 - 65 % [facility] Nucleated RBC/100 WBC (Bld) [Ratio] 0.0 % 0.0 per 100 WBC [facility] Platelet mean volume (Bld) [Entitic vol] 10.0 fL 8.1 - 13.5 fL [facility] Platelets (Bld) [#/Vol] 214 10*3/uL [facility] RBC (Bld) [#/Vol] 4.94 10*6/uL 4.21 - 5.7 7 m/uL [facility] Segmented neutrophils/100 WBC (Bld) 6.30 % [facility] WBC other (Bld) [#/Vol] 10.[address] [facility] CBC with Diffon 11-30-2023 Abs. Basophil 0.08 k/uL Normal 0.00-0.20 [facility] Comment on above: Performed By: #### P HO, CDP, RA, PT, SED, BMPX, FREDA, MG, LD, CRP, FEBC, B12FOL, PTT, C4, CCPAB, FERI, IOCAL, CORTI, CK, C3, REJEC #### [employer] [address] [place] [address] Chief Technology Officer: Jasbir Montalvo MD Abs.Imm.Granulocyte <0.03 Normal 0.00-0.30 [facility] Comment on above: Performed By: #### P HO, CDP, RA, PT, SED, BMPX, FREDA, MG, LD, CRP, FEBC, B12FOL, PTT, C4, CCPAB, FERI, IOCAL, CORTI, CK, C3, REJEC #### [employer] [address] [place] [address] Chief Technology Officer: Jasbir Montalvo MD Abs.Neutrophil (Seg) 6.30 k/uL Normal 1.50-8.10 [facility] Comment on above: Performed By: #### P HO, CDP, RA, PT, SED, BMPX, FREDA, MG, LD, CRP, FEBC, B12FOL, PTT, C4, CCPAB, FERI, IOCAL, CORTI, CK, C3, REJEC #### [employer] [address] [place] [address] Chief Technology Officer: Jasbir Montalvo MD Basophils/100 WBC (Bld) 1 % Normal 0-2 [facility] Comment on above: Performed By: #### P HO, CDP, RA, PT, SED, BMPX, FREDA, MG, LD, CRP, FEBC, B12FOL, PTT, C4, CCPAB, FERI, IOCAL, CORTI, CK, C3, REJEC #### [address] [address] Chief Technology Officer: Jasbir Montalvo MD Eosinophils (Bld) [#/Vol] 0.31 10*3/uL Normal 0.00-0.44 [facility] Comment on above: Performed By: #### P HO, CDP, RA, PT, SED, BMPX, FREDA, MG, LD, CRP, FEBC, B12FOL, PTT, C4, CCPAB, FERI, IOCAL, CORTI, CK, C3, REJEC #### [address] [address] Chief Technology Officer: Jasbir Montalvo MD Eosinophils/100 WBC (Bld) 3 % Normal 1-4 [facility] Comment on above: Performed By: #### P HO, CDP, RA, PT, SED, BMPX, FREDA, MG, LD, CRP, FEBC, B12FOL, PTT, C4, CCPAB, FERI, IOCAL, CORTI, CK, C3, REJEC #### [address] [address] Chief Technology Officer: Jasbir Montalvo MD Erythrocyte distribution width (RBC) [Ratio] 14.2 % Normal 11.8-14.4 [facility] Comment on above: Performed By: #### P HO, CDP, RA, PT, SED, BMPX, FREDA, MG, LD, CRP, FEBC, B12FOL, PTT, C4, CCPAB, FERI, IOCAL, CORTI, CK, C3, REJEC #### [facility] [employer] [address] [place] [address] Chief Technology Officer: Jasbir Montalvo MD Hematocrit (Bld) [Volume fraction] 49.3 % Normal 40.7-50.3 [facility] Comment on above: Performed By: #### P HO, CDP, RA, PT, SED, BMPX, FREDA, MG, LD, CRP, FEBC, B12FOL, PTT, C4, CCPAB, FERI, IOCAL, CORTI, CK, C3, REJEC #### [facility] [employer] [address] [place] [address] Chief Technology Officer: Jasbir Montalvo MD Hemoglobin (Bld) [Mass/Vol] 15.4 g/dL Normal 13.0-17.0 [facility] Comment on above: Performed By: #### P HO, CDP, RA, PT, SED, BMPX, FREDA, MG, LD, CRP, FEBC, B12FOL, PTT, C4, CCPAB, FERI, IOCAL, CORTI, CK, C3, REJEC #### [facility] [employer] [address] [place] [address] Chief Technology Officer: Jasbir Montalvo MD Immature granulocytes/100 WBC (Bld) 0 % Normal 0 [facility] Comment on above: Performed By: #### P HO, CDP, RA, PT, SED, BMPX, FREDA, MG, LD, CRP, FEBC, B12FOL, PTT, C4, CCPAB, FERI, IOCAL, CORTI, CK, C3, REJEC #### [facility] [employer] [address] [place] [address] Chief Technology Officer: Jasbir Montalvo MD Lymphocytes (Bld) [#/Vol] 2.64 10*3/uL Normal 1.10-3.70 [facility] Comment on above: Performed By: #### P HO, CDP, RA, PT, SED, BMPX, FREDA, MG, LD, CRP, FEBC, B12FOL, PTT, C4, CCPAB, FERI, IOCAL, CORTI, CK, C3, REJEC #### [facility] [employer] [address] [place] [address] Chief Technology Officer: Jasbir Montalvo MD Lymphocytes/100 WBC (Bld) 26 % Normal 24-43 [facility] Comment on above: Performed By: #### P HO, CDP, RA, PT, SED, BMPX, FREDA, MG, LD, CRP, FEBC, B12FOL, PTT, C4, CCPAB, FERI, IOCAL, CORTI, CK, C3, REJEC #### [address] [address] Chief Technology Officer: Jasbir Montalvo MD MCH (RBC) [Entitic mass] 31.2 pg Normal 25.2-33.5 [facility] Comment on above: Performed By: #### P HO, CDP, RA, PT, SED, BMPX, FREDA, MG, LD, CRP, FEBC, B12FOL, PTT, C4, CCPAB, FERI, IOCAL, CORTI, CK, C3, REJEC #### [address] [address] Chief Technology Officer: Jabsir Montalvo MD MCHC (RBC) [Mass/Vol] 31.2 g/dL Normal 28.4-34.8 [facility] Comment on above: Performed By: #### P HO, CDP, RA, PT, SED, BMPX, FREDA, MG, LD, CRP, FEBC, B12FOL, PTT, C4, CCPAB, FERI, IOCAL, CORTI, CK, C3, REJEC #### [address] [address] Chief Technology Officer: Jasbir Montalvo MD MCV (RBC) [Entitic vol] 99.8 fL Normal 82.6-102.9 [facility] Comment on above: Performed By: #### P HO, CDP, RA, PT, SED, BMPX, FREDA, MG, LD, CRP, FEBC, B12FOL, PTT, C4, CCPAB, FERI, IOCAL, CORTI, CK, C3, REJEC #### [address] [address] Chief Technology Officer: Jasbir Montalvo MD Monocytes (Bld) [#/Vol] 0.74 10*3/uL Normal 0.10-1.20 [facility] Comment on above: Performed By: #### P HO, CDP, RA, PT, SED, BMPX, FREDA, MG, LD, CRP, FEBC, B12FOL, PTT, C4, CCPAB, FERI, IOCAL, CORTI, CK, C3, REJEC #### [address] [address] Chief Technology Officer: Jasbir Montalvo MD Monocytes/100 WBC (Bld) 7 % Normal 3-12 [facility] Comment on above: Performed By: #### P HO, CDP, RA, PT, SED, BMPX, FREDA, MG, LD, CRP, FEBC, B12FOL, PTT, C4, CCPAB, FERI, IOCAL, CORTI, CK, C3, REJEC #### [address] [address] Chief Technology Officer: Jasbir Montalvo MD Neutrophil (Seg) 63 % Normal 36-65 [facility] Comment on above: Performed By: #### P HO, CDP, RA, PT, SED, BMPX, FREDA, MG, LD, CRP, FEBC, B12FOL, PTT, C4, CCPAB, FERI, IOCAL, CORTI, CK, C3, REJEC #### [address] [address] Chief Technology Officer: Jasbir Montalvo MD NRBC Automated 0.0 per 100 WBC Normal 0.0 [facility] Comment on above: Performed By: #### P HO, CDP, RA, PT, SED, BMPX, FREDA, MG, LD, CRP, FEBC, B12FOL, PTT, C4, CCPAB, FERI, IOCAL, CORTI, CK, C3, REJEC #### [address] [id number] Chief Technology Officer: Jasbir Montalvo MD Platelet mean volume (Bld) [Entitic vol] 10.0 fL Normal 8.1-13.5 [facility] Comment on above: Performed By: #### P HO, CDP, RA, PT, SED, BMPX, FREDA, MG, LD, CRP, FEBC, B12FOL, PTT, C4, CCPAB, FERI, IOCAL, CORTI, CK, C3, REJEC #### [address] [id number] Chief Technology Officer: Jasbir Montalvo MD Platelets (d) [#/Vol] 214 10*3/uL Normal 138-453 [facility] Comment on above: Performed By: #### P HO, CDP, RA, PT, SED, BMPX, FREDA, MG, LD, CRP, FEBC, B12FOL, PTT, C4, CCPAB, FERI, IOCAL, CORTI, CK, C3, REJEC #### [address] [id number] Chief Technology Officer: Jasbir Montalvo MD RBC (d) [#/Vol] 4.94 10*6/uL Normal 4.21-5.77 [facility] Comment on above: Performed By: #### P HO, CDP, RA, PT, SED, BMPX, FREDA, MG, LD, CRP, FEBC, B12FOL, PTT, C4, CCPAB, FERI, IOCAL, CORTI, CK, C3, REJEC #### [address] [id number] Chief Technology Officer: Jasbir Montalvo MD WBC (Bld) [#/Vol] 10.1 10*3/uL Normal 3.5-11.3 [facility] Comment on above: Performed By: #### P HO, CDP, RA, PT, SED, BMPX, FREDA, MG, LD, CRP, FEBC, B12FOL, PTT, C4, CCPAB, FERI, IOCAL, CORTI, CK, C3, REJEC #### [address] [id number] Chief Technology Officer: Jasbir Montalvo MD CKon 11-30-2023 CK [Catalytic activity/Vol] 69 U/L 39 - 308 U/L [facility] CT LUMBAR SPINE WO CONTRASTo [...] changes L4-L5 L5-S1. Disc protrusion L4-L5. SOFT TISSUES/RETROPERITONE UM: No paraspinal mass is seen. IMPRESSION: CT thoracic spine: Mild dextroscoliotic curvature. No acute fracture or traumatic malalignment. Chronic anterior loss in height of T10 of 15%. CT lumbar spine: No acute fracture or traumatic malalignment. Mild levo scoliotic curvature. Degenerative and degenerative disc changes L3 through S1. Interpreted by: Shanthi Mcdonough MD Signed by: Shanthi Mcdonough MD 11/30/23 Final result Normal [facility] CT THORACIC SPINE WO CONTRAS Ton 11-30-2023 [...] changes L4-L5 L5-S1. Disc protrusion L4-L5. SOFT TISSUES/RETROPERITONE UM: No paraspinal mass is seen. IMPRESSION: CT thoracic spine: Mild dextroscoliotic curvature. No acute fracture or traumatic malalignment. Chronic anterior loss in height of T10 of 15%. CT lumbar spine: No acute fracture or traumatic malalignment. Mild levo scoliotic curvature. Degenerative and degenerative disc changes L3 through S1. Interpreted by: Shanthi Mcdonough MD Signed by: Shanthi Mcdonough MD 11/30/23 Final result Normal [facility] Calcium, Ionicon 11-30-2023 Calcium [Moles/Vol] 1.21 mmol/L Normal 1.13-1.33 [facility] Comment on above: Performed By: #### P HO, CDP, RA, PT, SED, BMPX, FREDA, MG, LD, CRP, FEBC, B12FOL, PTT, C4, CCPAB, FERI, IOCAL, CORTI, CK, C3, REJEC ####[employer] [place] [address] [id number] Lab Director: Jasbir Montalvo MD Calcium, Ionizedon Calcium.ionized (Bld) [Moles/Vol] 1.21 mmol/L 1.13 - 1.33 mmol/L [facility] Cortisolon 11-30-2023 Cortisol 15.5 ug/dL Normal 2.7-18.4 [facility] Comment on above: Result Comment: Cortisol Reference Range: AM 6.0-18.4 PM 2.7-10.5 Performed By: #### P HO, CDP, RA, PT, SED, BMPX, FREDA, MG, LD, CRP, FEBC, B12FOL, PTT, C4, CCPAB, FERI, IOCAL, CORTI, CK, C3, REJEC #### [employer] [address] [place] [address] [id number] Chief Technology Officer: Jasbir Montalvo MD Cortisol Totalon 11-30-2023 Cortisol [Mass/Vol] 15.5 ug/dL 2.7 - 18 .4 ug/dL [facility] Comment on above: Cortisol Reference Range: AM 6.0-18.4 PM 2.7-10.5 Creatine Kinaseon 11-30-2023 CK [Catalytic activity/Vol] 69 U/L Normal 39-308 [facility] Comment on above: Performed By: #### P HO, CDP, RA, PT, SED, BMPX, FREDA, MG, LD, CRP, FEBC, B12FOL, PTT, C4, CCPAB, FERI, IOCAL, CORTI, CK, C3, REJEC #### [employer] [address] [place] [address] [id number] Chief Technology Officer: Jasbir Montalvo MD Ferritinon 11-30-2023 Ferritin [Mass/Vol] 151 ng/mL Normal 30-400 [facility] Comment on above: Performed By: #### P HO, CDP, RA, PT, SED, BMPX, FREDA, MG, LD, CRP, FEBC, B12FOL, PTT, C4, CCPAB, FERI, IOCAL, CORTI, CK, C3, REJEC #### [facility] [place] [address] Chief Technology Officer: Jasbir Montalvo MD Ferritin [Mass/Vol] 151 ng/mL 30 - 400 ng/mL [facility] Glucose,Whole Bloodon 2023 Glucose [Mass/Vol] 231 mg/dL High 75-110 [facility] Glucose [Mass/Vol] 98 mg/dL Normal 75-110 [facility] Glucose [Mass/Vol] 154 mg/dL High 75-110 [facility] Glucose [Mass/Vol] 137 mg/dL High 75-110 [facility] Glucose [Mass/Vol] 55 mg/dL Low 75-110 [facility] Glucose [Mass/Vol] 48 mg/dL Low 75-110 [facility] Comment on above: Result Comment: Evaristo cannon Noted Iron Binding Cap.on 11-30-19 24 % Fe Saturation 24 % Normal 20-55 [facility] Comment on above: Performed By: #### P HO, CDP, RA, PT, SED, BMPX, FREDA, MG, LD, CRP, FEBC, B12FOL, PTT, C4, CCPAB, FERI, IOCAL, CORTI, CK, C3, REJEC #### [facility] [employer] [address] [place] [address] Chief Technology Officer: Jasbir Montalvo MD Iron [Mass/Vol] 54 ug/dL Low 59-158 [facility] Comment on above: Performed By: #### P HO, CDP, RA, PT, SED, BMPX, FREDA, MG, LD, CRP, FEBC, B12FOL, PTT, C4, CCPAB, FERI, IOCAL, CORTI, CK, C3, REJEC #### [employer] [address] [place] [address] Chief Technology Officer: Jasbir Montalvo MD Total Fe Binding Cap 224 ug/dL Low 250-450 [facility] Comment on above: Performed By: #### P HO, CDP, RA, PT, SED, BMPX, FREDA, MG, LD, CRP, FEBC, B12FOL, PTT, C4, CCPAB, FERI, IOCAL, CORTI, CK, C3, REJEC #### [employer] [address] [place] [address] Chief Technology Officer: Jasbir Montalvo MD Unbound Fe Bind Cap 170 ug/dL Normal 112-347 [facility] Comment on above: Performed By: #### P HO, CDP, RA, PT, SED, BMPX, FREDA, MG, LD, CRP, FEBC, B12FOL, PTT, C4, CCPAB, FERI, IOCAL, CORTI, CK, C3, REJEC #### [employer] [address] [place] [address] Chief Technology Officer: Jasbir Montalvo MD Iron and TIBCon 11-30-2023 Interpretation and review of laboratory results Abnormal [facility] Iron [Mass/Vol] 54 ug/dL Low 59 - 158 ug/dL [facility] Iron binding capacity [Mass/Vol] 224 ug/dL Low 250 - 450 ug/dL [facility] Iron saturation [Mass fraction] 24 % 20 - 55 % [facility] UIBC 170 ug/dL 112 - 347 ug/dL [facility] Lactate Dehydrogenaseon 11-07 LDH [Catalytic activity/Vol] 243 U/L High 135-225 [facility] Comment on above: Performed By: #### P HO, CDP, RA, PT, SED, BMPX, FREDA, MG, LD, CRP, FEBC, B12FOL, PTT, C4, CCPAB, FERI, IOCAL, CORTI, CK, C3, REJEC #### [employer] [facility] [place] [address] Chief Technology Officer: Jasbir Montalvo MD LDH [Catalytic activity/Vol] 243 U/L High 135 - 225 U/L [facility] Magnesiumon 11-30-2023 Magnesium [Mass/Vol] 2.7 mg/dL High 1.6-2.6 [facility] Comment on above: Performed By: #### P HO, CDP, RA, PT, SED, BMPX, FREDA, MG, LD, CRP, FEBC, B12FOL, PTT, C4, CCPAB, FERI, IOCAL, CORTI, CK, C3, REJEC ####[employer] [place] [address] Lab Director: Jasbir Montalvo MD Magnesium [Mass/Vol] 2.7 mg/dL High 1.6 - 2 .6 mg/dL [facility] Myoglobinon 11-30-2023 Myoglobin [Mass/Vol] 59 ng/mL Normal 28-72 [facility] Comment on above: Performed By: #### P HO, CDP, RA, PT, SED, BMPX, FREDA, MG, LD, CRP, FEBC, B12FOL, PTT, C4, CCPAB, FERI, IOCAL, CORTI, CK, C3, REJEC ####[employer] [place] [address] [id number] Lab Director: Jasbir Montalvo MD Myoglobin, Bloodon Myoglobin [Mass/Vol] 59 ng/mL 28 - 72 ng/mL B [facility] No Panel Informationon 11-30 [facility] CT thoracic spine: Mild dextroscoliotic curvature. No acute fracture or traumatic malalignment. Chronic anterior loss in height of T10 of 15%. CT lumbar spine: No acute fracture or traumatic malalignment. Mild levo scoliotic curvature. Degenerative and degenerative disc changes L3 through S1. [facility] RIS CONSOLIDATED EXAMINATION: CT OF THE THORACIC [...] changes L4-L5 L5-S1. Disc protrusion L4-L5. SOFT TISSUES/RETROPERITONE UM: No paraspinal mass is seen. [facility] RIS CONSOLIDATED Shanthi Mcdonough MD - 11/30/2023 [...] changes L4-L5 L5-S1. Disc protrusion L4-L5. SOFT TISSUES/RETROPERITONE UM: No paraspinal mass is seen. IMPRESSION: CT thoracic spine: Mild dextroscoliotic curvature. No acute fracture or traumatic malalignment. Chronic anterior loss in height of T10 of 15%. CT lumbar spine: No acute fracture or traumatic malalignment. Mild levo scoliotic curvature. Degenerative and degenerative disc changes L3 through S1. [facility] [employer]iology Study observation (narrative) [employer] Interpretation and review of laboratory results Abnormal [facility] Interpretation and review of laboratory results Abnormal [facility] [employer] [facility] No Panel InformationOrdered By: Shanthi Mcdonough on 11-30-2023 [employer] Work Phone: POC Glucose Fingerstickon Glucose [Mass/Vol] 231 mg/dL High 75 - 110 mg/dL [employer] Interpretation and review of laboratory results Abnormal [facility] Glucose [Mass/Vol] 98 mg/dL 75 - 110 mg/dL [facility] Glucose [Mass/Vol] 154 mg/dL High 75 - 110 mg/dL [facility] Interpretation and review of laboratory results Abnormal [facility] Glucose [Mass/Vol] 137 mg/dL High 75 - 110 mg/dL [facility] Interpretation and review of laboratory results Abnormal [facility] Glucose [Mass/Vol] 55 mg/dL Low 75 - 110 mg/dL [facility] Interpretation and review of laboratory results Abnormal [facility] Glucose [Mass/Vol] 48 mg/dL Low 75 - 110 mg/dL [facility] Comment on above: Critical Noted Interpretation and review of laboratory results Abnormal [facility] PTon 11-30-2023 INR Coag (PPP) [Relative time] 3.0 {INR} Normal [facility] Comment on above: Result Comment: Therapeutic Range: Moderate Anticoagulant Intensity: INR = 2.0-3.0 High Anticoagulant Intensity: INR = 2.5-3.5 Performed By: #### P HO, CDP, RA, PT, SED, BMPX, FREDA, MG, LD, CRP, FEBC, B12FOL, PTT, C4, CCPAB, FERI, IOCAL, CORTI, CK, C3, REJEC ####[facility] [id number] [place] [id number] lab Director: Jasbir Montalvo MD PT Coag (PPP) [Time] 30.0 s High 11.7-14.9 [facility] Comment on above: Performed By: #### P HO, CDP, RA, PT, SED, BMPX, FREDA, MG, LD, CRP, FEBC, B12FOL, PTT, C4, CCPAB, FERI, IOCAL, CORTI, CK, C3, REJEC ####[place] [id number] lab Director: Jasbir Montalvo MD Phosphoruson 11-30-2023 Phosphate [Mass/Vol] 3.5 mg/dL 2.5 - 4 .5 mg/dL [facility] Phosphorus, Inorg.on 024 Phosphorus, Inorg. 3.5 mg/dL Normal 2.5-4.5 [facility] Comment on above: Performed By: #### P HO, CDP, RA, PT, SED, BMPX, FREDA, MG, LD, CRP, FEBC, B12FOL, PTT, C4, CCPAB, FERI, IOCAL, CORTI, CK, C3, REJEC ####[facility] [id number] [place] [address] lab Director: Jasbir Montalvo MD Protime-INRon 11-30-2023 INR Coag (PPP) [Relative time] 3.0 {INR} [facility] Comment on above: Therapeutic Range: Moderate Anticoagulant Intensity: INR = 2.0-3.0 High Anticoagulant Intensity: INR = 2.5-3.5 PT Coag (PPP) [Time] 30.0 s High [facility] RA Screenon 11-30-2023 RA Screen <10 Normal <14 [facility] Comment on above: Performed By: #### P HO, CDP, RA, PT, SED, BMPX, FREDA, MG, LD, CRP, FEBC, B12FOL, PTT, C4, CCPAB, FERI, IOCAL, CORTI, CK, C3, REJEC ####[employer] [place], [place] [phone] lab Director: Jasbir Montalvo MD RHEUMATOID FACTORon 11-30-19 24 Rheumatoid factor Nephelometry Qn (S) <[address] [facility] Sedimentation Rateon 024 Sedimentation Rate 18 mm/Hr Normal 0-20 [facility] Comment on above: Performed By: #### P HO, CDP, RA, PT, SED, BMPX, FREDA, MG, LD, CRP, FEBC, B12FOL, PTT, C4, CCPAB, FERI, IOCAL, CORTI, CK, C3, REJEC ####[address] [id number] Lab Director: Jasbir Montalvo MD ESR Photometric method (Bld) [Velocity] [address] [facility] Specimen Rejectionon Reason for rejection Unable to perform testing: Specimen quantity not sufficient. [facility] Comment on above: Performed By: #### P HO, CDP, RA, PT, SED, BMPX, FREDA, MG, LD, CRP, FEBC, B12FOL, PTT, C4, CCPAB, FERI, IOCAL, CORTI, CK, C3, REJEC #### [address] [address] Chief Technology Officer: Jasbir Montalvo MD Source of sample .BLOOD [facility] Comment on above: Performed By: #### P HO, CDP, RA, PT, SED, BMPX, FREDA, MG, LD, CRP, FEBC, B12FOL, PTT, C4, CCPAB, FERI, IOCAL, CORTI, CK, C3, REJEC #### [address] [address] Chief Technology Officer: Jasbir Montalvo MD Test ordered AALDO [facility] Comment on above: Performed By: #### P HO, CDP, RA, PT, SED, BMPX, FREDA, MG, LD, CRP, FEBC, B12FOL, PTT, C4, CCPAB, FERI, IOCAL, CORTI, CK, C3, REJEC #### [address] [id number] Chief Technology Officer: Jasbir Montalvo MD T. PALLIDUM ABon 11-30-2023 T. pallidum Ab IA Ql (S) Non-Reactive NONREACTIVE [facility] Comment on above: T. pallidum antibodies are not detected. There is no serological evidence of infection with T. pallidum (early primary syphilis cannot be excluded). Retest in 2-4 weeks if syphilis is clinically suspect. [facility] T.pallidum Ab Screenon 11-30 T.pallidum Ab Screen Non-Reactive Normal NR [facility] Comment on above: Result [...] FERI, IOCAL, CORTI, CK, C3, REJEC #### [facility] [employer] [address] [place] [address] Chief Technology Officer: Jasbir Montalvo MD TSH w/reflex to FT4on 2023 Thyroid Stim. Horm. 0.36 uIU/mL Normal 0.30-5.00 [facility] Comment on above: Performed By: #### P HO, CDP, RA, PT, SED, BMPX, FREDA, MG, LD, CRP, FEBC, B12FOL, PTT, C4, CCPAB, FERI, IOCAL, CORTI, CK, C3, REJEC #### [facility] [employer] [address] [place] [address] Chief Technology Officer: Jasbir Montalvo MD TSH with Reflexon 11-30-2023 TSH Qn 0.36 m[IU]/L [facility] Venous Blood Gaseson 024 Body Temp. 37.0 Normal [facility] Comment on above: Performed By: #### P HO, CDP, RA, PT, SED, BMPX, FREDA, MG, LD, CRP, FEBC, B12FOL, PTT, C4, CCPAB, FERI, IOCAL, CORTI, CK, C3, REJEC #### [facility] [employer] [address] [place] [address] Chief Technology Officer: Jasbir Montalvo MD Carboxy Hgb 1.6 % Normal 0-5 [facility] Comment on above: Result Comment: Reference Range: Non-Smokers 0-2% Average Smoker 2-4% Heavy Smoker <10% Performed By: #### P HO, CDP, RA, PT, SED, BMPX, FREDA, MG, LD, CRP, FEBC, B12FOL, PTT, C4, CCPAB, FERI, IOCAL, CORTI, CK, C3, REJEC #### [address] [address] Chief Technology Officer: Jasbir Montalvo MD FIO2 INFORMATION NOT PROVIDED Normal [facility] Comment on above: Performed By: #### P HO, CDP, RA, PT, SED, BMPX, FREDA, MG, LD, CRP, FEBC, B12FOL, PTT, C4, CCPAB, FERI, IOCAL, CORTI, CK, C3, REJEC #### [address] [address] Chief Technology Officer: Jasbir Montalvo MD HCO3 (Bld) [Moles/Vol] 26.1 mmol/L Normal 24-30 [facility] Comment on above: Performed By: #### P HO, CDP, RA, PT, SED, BMPX, FREDA, MG, LD, CRP, FEBC, B12FOL, PTT, C4, CCPAB, FERI, IOCAL, CORTI, CK, C3, REJEC #### [address] [address] Chief Technology Officer: Jasbir Montalvo MD Negative Base Excess 1.1 mmol/L Normal 0.0-2.0 [facility] Comment on above: Performed By: #### P HO, CDP, RA, PT, SED, BMPX, FREDA, MG, LD, CRP, FEBC, B12FOL, PTT, C4, CCPAB, FERI, IOCAL, CORTI, CK, C3, REJEC #### [address] [address] Chief Technology Officer: Jasbir Montalvo MD Oxygen saturation in Blood 84.3 % Normal 60.0-85.0 [facility] Comment on above: Performed By: #### P HO, CDP, RA, PT, SED, BMPX, FREDA, MG, LD, CRP, FEBC, B12FOL, PTT, C4, CCPAB, FERI, IOCAL, CORTI, CK, C3, REJEC #### [address] [address] Chief Technology Officer: Jasbir Montalvo MD pCO2 55.2 mm Hg High 39-55 [facility] Comment on above: Performed By: #### P HO, CDP, RA, PT, SED, BMPX, FREDA, MG, LD, CRP, FEBC, B12FOL, PTT, C4, CCPAB, FERI, IOCAL, CORTI, CK, C3, REJEC #### [address] [address] Chief Technology Officer: Jasbir Montalvo MD pH (Bld) 7.297 [pH] Low 7.320-7.420 [facility] Comment on above: Performed By: #### P HO, CDP, RA, PT, SED, BMPX, FREDA, MG, LD, CRP, FEBC, B12FOL, PTT, C4, CCPAB, FERI, IOCAL, CORTI, CK, C3, REJEC #### [address] [address] Chief Technology Officer: Jasbir Montalvo MD pO2 55.2 mm Hg High 30-50 [facility] Comment on above: Performed By: #### P HO, CDP, RA, PT, SED, BMPX, FREDA, MG, LD, CRP, FEBC, B12FOL, PTT, C4, CCPAB, FERI, IOCAL, CORTI, CK, C3, REJEC #### [address] [address] Chief Technology Officer: Jasbir Montalvo MD Vitamin B12 & Folateon 11-30 Cobalamin (Vitamin B12) [Mass/Vol] 397 pg/mL 232 - 1245 pg/mL [facility] Folate [Mass/Vol] 6.2 ng/mL 4.8 - PINF ng/mL [facility] CT HEAD WO CONTRASTon 2023 CT [...] Nathaly Oh MD 11/29/23 Final result Normal [facility] Comp Metabolic Pr/rfx MGon 0 11-29-2023 AST [Catalytic activity/Vol] 18 U/L Normal <40 [facility] Comment on above: Performed By: #### P HO, CDP, RA, PT, SED, BMPX, FREDA, MG, LD, CRP, FEBC, B12FOL, PTT, C4, CCPAB, FERI, IOCAL, CORTI, CK, C3, REJEC #### [address] [address] Chief Technology Officer: Jasbir Montalvo MD Albumin [Mass/Vol] 3.4 g/dL Low 3.5-5.2 [facility] Comment on above: Performed By: #### P HO, CDP, RA, PT, SED, BMPX, FREDA, MG, LD, CRP, FEBC, B12FOL, PTT, C4, CCPAB, FERI, IOCAL, CORTI, CK, C3, REJEC #### [address] [address] Chief Technology Officer: Jasbir Montalvo MD Albumin/Glob Ratio 1.1 Normal 1.0-2.5 [facility] Comment on above: Performed By: #### P HO, CDP, RA, PT, SED, BMPX, FREDA, MG, LD, CRP, FEBC, B12FOL, PTT, C4, CCPAB, FERI, IOCAL, CORTI, CK, C3, REJEC #### [address] [address] Chief Technology Officer: Jasbir Montalvo MD Alkaline Phos 93 U/L Normal 40-129 [facility] Comment on above: Performed By: #### P HO, CDP, RA, PT, SED, BMPX, FREDA, MG, LD, CRP, FEBC, B12FOL, PTT, C4, CCPAB, FERI, IOCAL, CORTI, CK, C3, REJEC #### [address] [address] Chief Technology Officer: Jasbir Montalvo MD ALT [Catalytic activity/Vol] 14 U/L Normal 5-41 [facility] Comment on above: Performed By: #### P HO, CDP, RA, PT, SED, BMPX, FREDA, MG, LD, CRP, FEBC, B12FOL, PTT, C4, CCPAB, FERI, IOCAL, CORTI, CK, C3, REJEC #### [address] [address] Chief Technology Officer: Jasbir Montalvo MD Anion gap [Moles/Vol] 11 mmol/L Normal 9-17 [facility] Comment on above: Performed By: #### P HO, CDP, RA, PT, SED, BMPX, FREDA, MG, LD, CRP, FEBC, B12FOL, PTT, C4, CCPAB, FERI, IOCAL, CORTI, CK, C3, REJEC #### [address] [address] Chief Technology Officer: Jasbir Montalvo MD Bilirubin [Mass/Vol] 0.3 mg/dL Normal 0.3-1.2 [facility] Comment on above: Performed By: #### P HO, CDP, RA, PT, SED, BMPX, FREDA, MG, LD, CRP, FEBC, B12FOL, PTT, C4, CCPAB, FERI, IOCAL, CORTI, CK, C3, REJEC #### [address] [address] Chief Technology Officer: Jasbir Montalvo MD Calcium [Mass/Vol] 8.9 mg/dL Normal 8.6-10.4 [facility] Comment on above: Performed By: #### P HO, CDP, RA, PT, SED, BMPX, FREDA, MG, LD, CRP, FEBC, B12FOL, PTT, C4, CCPAB, FERI, IOCAL, CORTI, CK, C3, REJEC #### [address] [address] Chief Technology Officer: Jasbir Montalvo MD Chloride [Moles/Vol] 109 mmol/L High 98-107 [facility] Comment on above: Performed By: #### P HO, CDP, RA, PT, SED, BMPX, FREDA, MG, LD, CRP, FEBC, B12FOL, PTT, C4, CCPAB, FERI, IOCAL, CORTI, CK, C3, REJEC #### [address] [address] Chief Technology Officer: Jasbir Montalvo MD CO2 [Moles/Vol] 24 mmol/L Normal 20-31 [facility] Comment on above: Performed By: #### P HO, CDP, RA, PT, SED, BMPX, FREDA, MG, LD, CRP, FEBC, B12FOL, PTT, C4, CCPAB, FERI, IOCAL, CORTI, CK, C3, REJEC #### [address] [address] Chief Technology Officer: Jasbir Montalvo MD Creatinine [Mass/Vol] 1.6 mg/dL High 0.7-1.2 [facility] Comment on above: Performed By: #### P HO, CDP, RA, PT, SED, BMPX, FREDA, MG, LD, CRP, FEBC, B12FOL, PTT, C4, CCPAB, FERI, IOCAL, CORTI, CK, C3, REJEC #### [address] [address] Chief Technology Officer: Jasbir Montalvo MD GFR/1.73 sq M.predicted among non-blacks MDRD (S/P/Bld) [Vol rate/Area] 48 mL/min/{1.73_m2} Low >60 [facility] Comment on above: Result Comment: These results [...] FERI, IOCAL, CORTI, CK, C3, REJEC #### [facility] [employer] [address] [place] [address] Chief Technology Officer: Jasbir Montalvo MD Glucose [Mass/Vol] 151 mg/dL High 70-99 [facility] Comment on above: Performed By: #### P HO, CDP, RA, PT, SED, BMPX, FREDA, MG, LD, CRP, FEBC, B12FOL, PTT, C4, CCPAB, FERI, IOCAL, CORTI, CK, C3, REJEC #### [facility] [employer] [address] [place] [address] [id number] Chief Technology Officer: Jasbir Montalvo MD Potassium [Moles/Vol] 4.1 mmol/L Normal 3.7-5.3 [facility] Comment on above: Performed By: #### P HO, CDP, RA, PT, SED, BMPX, FREDA, MG, LD, CRP, FEBC, B12FOL, PTT, C4, CCPAB, FERI, IOCAL, CORTI, CK, C3, REJEC #### [facility] [employer] [address] [place] [address] Chief Technology Officer: Jasbir Montalvo MD Protein [Mass/Vol] 6.5 g/dL Normal 6.4-8.3 [facility] Comment on above: Performed By: #### P HO, CDP, RA, PT, SED, BMPX, FREDA, MG, LD, CRP, FEBC, B12FOL, PTT, C4, CCPAB, FERI, IOCAL, CORTI, CK, C3, REJEC #### [facility] [employer] [address] [place] [address] Chief Technology Officer: Jasbir Montalvo MD Sodium [Moles/Vol] 144 mmol/L Normal 135-144 [facility] Comment on above: Performed By: #### P HO, CDP, RA, PT, SED, BMPX, FREDA, MG, LD, CRP, FEBC, B12FOL, PTT, C4, CCPAB, FERI, IOCAL, CORTI, CK, C3, REJEC #### [employer] [address] [place], [place] [id number] Chief Technology Officer: Jasbir Montalvo MD Urea nitrogen [Mass/Vol] 36 mg/dL High 8- [facility] Comment on above: Performed By: #### P HO, CDP, RA, PT, SED, BMPX, FREDA, MG, LD, CRP, FEBC, B12FOL, PTT, C4, CCPAB, FERI, IOCAL, CORTI, CK, C3, REJEC #### [facility] [address] [place] [address] Chief Technology Officer: Jasbir Montalvo MD Comprehensive Metabolic Pane l w/ Reflex to MGon 11-29-2023 Albumin [Mass/Vol] 3.4 g/dL Low 3.5 - 5.2 g/dL [facility] Albumin/Globulin [Mass ratio] 1.1 {ratio} 1.0 - 2.5 [facility] ALP [Catalytic activity/Vol] 93 U/L 40 - 129 U/L [facility] ALT [Catalytic activity/Vol] 14 U/L 5 - 41 U/L [facility] Anion gap [Moles/Vol] 11 mmol/L 9 - 17 mmol/L [facility] AST [Catalytic activity/Vol] 18 U/L NINF - 40 U/L [facility] Bilirubin [Mass/Vol] 0.3 mg/dL 0.3 - 1 .2 mg/dL [facility] Calcium [Mass/Vol] 8.9 mg/dL 8.6 - 10. 4 mg/dL [facility] Chloride [Moles/Vol] 109 mmol/L High 98 - 10 7 mmol/L [facility] CO2 [Moles/Vol] 24 mmol/L 20 - 31 mmol/L [facility] Creatinine [Mass/Vol] 1.6 mg/dL High 0.7 - 1.2 mg/dL [facility] GFR/1.73 sq M.predicted MDRD (S/P/Bld) [Vol rate/Area] 48 mL/min/{1.73_m2} Low - PINF [facility] Comment on above: These results [...] 151 mg/dL High 70 - 99 mg/dL [facility] Interpretation and review of laboratory results Abnormal [facility] Potassium [Moles/Vol] 4.1 mmol/L 3.7 - 5.3 mmol/L [facility] Protein [Mass/Vol] 6.5 g/dL 6.4 - 8.3 g/dL [facility] Sodium [Moles/Vol] 144 mmol/L 135 - 144 mmol/L [facility] Urea nitrogen [Mass/Vol] 36 mg/dL High 8 - 23 mg/dL [facility] Glucose, Whole Bloodon 11-29 Glucose [Mass/Vol] 169 mg/dL High 74-100 [facility] Glucose [Mass/Vol] 236 mg/dL High 74-100 [facility] Glucose [Mass/Vol] 116 mg/dL High 74-100 [facility] Glucose [Mass/Vol] 123 mg/dL High 74-100 [facility] Glucose [Mass/Vol] 53 mg/dL Low 74-100 [facility] Glucose [Mass/Vol] 62 mg/dL Low 74-100 [facility] Glucose,Whole Bloodon 2023 Glucose [Mass/Vol] 161 mg/dL High 75-110 [facility] Glucose Fingerstickon Glucose [Mass/Vol] 161 mg/dL High 75 - 110 mg/dL [facility] Interpretation and review of laboratory results Abnormal [facility] XR CHEST (2 VW)on 11-29-2023 XR [...] Nathaly Oh MD 11/29/23 Final result Normal [facility] RADHA Screen w/reflexon 2023 RADHA Screen Negative Normal NEG [facility] Comment on above: Performed By: #### A XUAN, GLYHGB, CRP, SED, PE, CDP, TSHX, HIVCMB, CK, ANAX, CP, B12FOL, VD25, AHCV #### [employer] [address] [place] [address] Chief Technology Officer: Jasbir Montalvo MD #### AMYARELI, ALYARP #### [employer] [address] [place] [address] Chief Technology Officer: Samuel Olivia MD Anti-dsDNA 6.0 IU/mL Normal <10.0 [facility] Comment on above: Result Comment: Reference Range: <10.0 Negative 10.0-15.0 Equivocal >15.0 Positive Performed By: #### A XUAN, GLYHGB, CRP, SED, PE, CDP, TSHX, HIVCMB, CK, ANAX, CP, B12FOL, VD25, AHCV #### [address] [id number] Chief Technology Officer: Jasbir Montalvo MD #### PACHECO DUARTE #### [facility] [address] [place] [address] Chief Technology Officer: Samuel Olivia MD XUAN Screen 0.2 U/mL Normal <0.7 [facility] Comment on above: Result Comment: Reference Range: <0.7 Negative 0.7-1.0 Equivocal >1.0 Positive XUAN Screen includes U1RNP,RNP70,Sm,Ro(SS-A),La(SS-B),CENP,Scl-70,Carolina-1 Performed By: #### A XUAN, GLYHGB, CRP, SED, PE, CDP, TSHX, HIVCMB, CK, ANAX, CP, B12FOL, VD25, AHCV #### [address] [id number] Chief Technology Officer: Jasbir Montalvo MD #### PACHECO DUARTE #### [facility] [address] [place] [address] Chief Technology Officer: Samuel Olivia MD Ammoniaon 11-28-2023 Ammonia (P) [Mass/Vol] ug/dL Low 16-60 [facility] Comment on above: Performed By: #### A MON ####[facility] [place] [address] Lab Director: Marlon Mack MD Anti-Extract Nuc Agon 2023 Anti-RNP70 0.4 U/mL Normal <7.0 [facility] Comment on above: Result Comment: Reference Range: <7.0 Negative 7.0-10.0 Equivocal >10.0 Positive Performed By: #### A XUAN, GLYHGB, CRP, SED, PE, CDP, TSHX, HIVCMB, CK, ANAX, CP, B12FOL, VD25, AHCV #### [address] [id number] Chief Technology Officer: Jasbir Montalvo MD #### PACHECO DUARTE #### [facility] [address] [place] [address] Chief Technology Officer: Samuel Olivia MD Anti-Scleroderma <0.6 Normal <7.0 [facility] Comment on above: Result Comment: Reference Range: <7.0 Negative 7.0-10.0 Equivocal >10.0 Positive Performed By: #### A XUAN, GLYHGB, CRP, SED, PE, CDP, TSHX, HIVCMB, CK, ANAX, CP, B12FOL, VD25, AHCV #### [address] [address] Chief Technology Officer: Jasbir Montalvo MD #### PACHECO DUARTE #### [address] [address] Chief Technology Officer: Samuel Olivia MD Anti-Sm 2.0 U/mL Normal <7.0 [facility] Comment on above: Result Comment: Reference Range: <7.0 Negative 7.0-10.0 Equivocal >10.0 Positive Performed By: #### A XUAN, GLYHGB, CRP, SED, PE, CDP, TSHX, HIVCMB, CK, ANAX, CP, B12FOL, VD25, AHCV #### [address] [address] Chief Technology Officer: Jasbir Montalvo MD #### PACHECO DUARTE #### [facility] [address] [place] [address] Chief Technology Officer: Samuel Olivia MD SSA 0.5 U/mL Normal <7.0 [facility] Comment on above: Result Comment: Reference Range: <7.0 Negative 7.0-10.0 Equivocal >10.0 Positive Performed By: #### A XUAN, GLYHGB, CRP, SED, PE, CDP, TSHX, HIVCMB, CK, ANAX, CP, B12FOL, VD25, AHCV #### [address] [id number] Chief Technology Officer: Jasbir Montalvo MD #### ASHVIN DUARTERP #### [facility] [address] [place] [address] Chief Technology Officer: Samuel Olivia MD SSB <0.3 Normal <7.0 [facility] Comment on above: Result Comment: Reference Range: <7.0 Negative 7.0-10.0 Equivocal >10.0 Positive Performed By: #### A XUAN, GLYHGB, CRP, SED, PE, CDP, TSHX, HIVCMB, CK, ANAX, CP, B12FOL, VD25, AHCV #### [address] [phone] Chief Technology Officer: Jasbir Montalvo MD #### ASHVIN DUARTERP #### [facility] [address] [place] [address] Chief Technology Officer: Samuel Olivia MD Basic Metabolic Profon 11-28 Anion gap [Moles/Vol] 9 mmol/L Normal 9-[address] [facility] Comment on above: Performed By: #### B MP, MG, CDP, TROPI #### [address] [place] [address] Chief Technology Officer: Marlon Mack MD BUN/CRE Ratio 16 Normal 9-20 [facility] Comment on above: Performed By: #### B MP, MG, CDP, TROPI #### [address] [place] [address] Chief Technology Officer: Marlon Mack MD Calcium [Mass/Vol] 9.1 mg/dL Normal 8.6-10.4 [facility] Comment on above: Performed By: #### B MP, MG, CDP, TROPI #### [facility] [address] [place], [place] [id number] Chief Technology Officer: Marlon Mack MD Chloride [Moles/Vol] 107 mmol/L Normal 98-107 [facility] Comment on above: Performed By: #### B MP, MG, CDP, TROPI #### [facility] [address] [place] [address] Chief Technology Officer: Marlon Mack MD CO2 [Moles/Vol] 27 mmol/L Normal 20-31 [facility] Comment on above: Performed By: #### B MP, MG, CDP, TROPI #### [facility] [address] [place], [place] [id number] Chief Technology Officer: Marlon Mack MD Creatinine [Mass/Vol] 1.8 mg/dL High 0.7-1.[address] [facility] Comment on above: Performed By: #### B MP, MG, CDP, TROPI #### [facility] [address] [place] [address] Chief Technology Officer: Marlon Mack MD GFR/1.73 sq M.predicted among non-blacks MDRD (S/P/Bld) [Vol rate/Area] 42 mL/min/{1.73_m2} Low >60 [facility] Comment on above: Result Comment: These results [...] #### B MP, MG, CDP, TROPI #### [facility] [address] [place], [place] [id number] Chief Technology Officer: Marlon Mack MD Glucose [Mass/Vol] 77 mg/dL Normal 70-99 [facility] Comment on above: Performed By: #### B MP, MG, CDP, TROPI #### [facility] [address] [place], [place] [phone] Chief Technology Officer: Marlon Mack MD Potassium [Moles/Vol] 3.9 mmol/L Normal 3.7-5.[address] [facility] Comment on above: Performed By: #### B MP, MG, CDP, TROPI #### [address] [place], [place] [phone] Chief Technology Officer: Marlon Mack MD Sodium [Moles/Vol] 143 mmol/L Normal 135-144 [facility] Comment on above: Performed By: #### B MP, MG, CDP, TROPI #### [address] [place], [place] 2307983 Chief Technology Officer: Marlon Mack MD Urea nitrogen [Mass/Vol] 29 mg/dL High - [facility] Comment on above: Performed By: #### B MP, MG, CDP, TROPI #### [address] [place], [place] [phone] Chief Technology Officer: Marlon Mack MD CBC with Diffon 11-28-2023 Abs. Basophil 0.06 k/uL Normal 0.00-0.20 [facility] Comment on above: Performed By: #### B MP, MG, CDP, TROPI #### [facility] [address] [place] [address] Chief Technology Officer: Marlon Mack MD Abs.Imm.Granulocyte 0.04 k/uL Normal 0.00-0.30 [facility] Comment on above: Performed By: #### B MP, MG, CDP, TROPI #### [address] [place], [facility]83 Chief Technology Officer: Marlon Mack MD Abs.Neutrophil (Seg) 6.33 k/uL Normal 1.50-8.10 [facility] Comment on above: Performed By: #### B MP, MG, CDP, TROPI #### [address] [place], [facility]83 Chief Technology Officer: Marlon Mack MD Basophils/100 WBC (Bld) 1 % Normal 0-2 [facility] Comment on above: Performed By: #### B MP, MG, CDP, TROPI #### [address] [place], [facility]83 Chief Technology Officer: Marlon Mack MD Eosinophils (Bld) [#/Vol] 0.25 10*3/uL Normal 0.00-0.44 [facility] Comment on above: Performed By: #### B MP, MG, CDP, TROPI #### [address] [place], [facility]83 Chief Technology Officer: Marlon Mack MD Eosinophils/100 WBC (Bld) 3 % Normal 1-4 [facility] Comment on above: Performed By: #### B MP, MG, CDP, TROPI #### [address] [place], [facility]83 Chief Technology Officer: Marlon Mack MD Immature granulocytes/100 WBC (Bld) 0 % Normal 0 [facility] Comment on above: Performed By: #### B MP, MG, CDP, TROPI #### [address] [place], [facility]83 Chief Technology Officer: Marlon Mack MD Lymphocytes (Bld) [#/Vol] 2.23 10*3/uL Normal 1.10-3.70 [facility] Comment on above: Performed By: #### B MP, MG, CDP, TROPI #### [facility] [address] [place] [address] [place], [place] [id number] Chief Technology Officer: Marlon Mack MD Lymphocytes/100 WBC (Bld) 23 % Low 24-43 [facility] Comment on above: Performed By: #### B MP, MG, CDP, TROPI #### [address] [place], [place] 0100083 Chief Technology Officer: Marlon Mack MD Monocytes (Bld) [#/Vol] 0.64 10*3/uL Normal 0.10-1.20 [facility] Comment on above: Performed By: #### B MP, MG, CDP, TROPI #### [address] [place], [facility]83 Chief Technology Officer: Marlon Mack MD Monocytes/100 WBC (Bld) 7 % Normal 3-12 [facility] Comment on above: Performed By: #### B MP, MG, CDP, TROPI #### [address] [place], [facility]83 Chief Technology Officer: Marlon Mack MD Neutrophil (Seg) 66 % High 36-65 [facility] Comment on above: Performed By: #### B MP, MG, CDP, TROPI #### [address] [place], [place] [phone] Chief Technology Officer: Marlon Mack MD Erythrocyte distribution width (RBC) [Ratio] 14.0 % Normal 11.8-14.4 [facility] Comment on above: Performed By: #### B MP, MG, CDP, TROPI #### [address] [place] [address] Chief Technology Officer: Marlon Mack MD Hematocrit (Bld) [Volume fraction] 48.5 % Normal 40.7-50.3 [facility] Comment on above: Performed By: #### B MP, MG, CDP, TROPI #### [address] [place] [address] Chief Technology Officer: Marlon Mack MD Hemoglobin (Bld) [Mass/Vol] 15.9 g/dL Normal 13.0-17.0 [facility] Comment on above: Performed By: #### B MP, MG, CDP, TROPI #### [address] [place], [facility]83 Chief Technology Officer: Marlon Mack MD MCH (RBC) [Entitic mass] 31.2 pg Normal 25.2-33.5 [facility] Comment on above: Performed By: #### B MP, MG, CDP, TROPI #### [address] [place], [facility]83 Chief Technology Officer: Marlon Mack MD MCHC (RBC) [Mass/Vol] 32.8 g/dL Normal 28.4-34.[address] [facility] Comment on above: Performed By: #### B MP, MG, CDP, TROPI #### [address] [place], [facility]83 Chief Technology Officer: Marlon Mack MD MCV (RBC) [Entitic vol] 95.3 fL Normal 82.6-102.9 [facility] Comment on above: Performed By: #### B MP, MG, CDP, TROPI #### [address] [place], [facility]83 Chief Technology Officer: Marlon Mcak MD NRBC Automated 0.0 per 100 WBC Normal 0.0 [facility] Comment on above: Performed By: #### B MP, MG, CDP, TROPI #### [address] [place] [address] Chief Technology Officer: Marlon Mack MD Platelet mean volume (Bld) [Entitic vol] 9.9 fL Normal 8.1-13.5 [facility] Comment on above: Performed By: #### B MP, MG, CDP, TROPI #### [facility] [address] [place], [place] [address]1983 Chief Technology Officer: Marlon Mack MD Platelets (Bld) [#/Vol] 233 10*3/uL Normal 138-453 [facility] Comment on above: Performed By: #### B MP, MG, CDP, TROPI #### [facility] [address] [place], [place] [phone] Chief Technology Officer: Marlon Mack MD RBC (Bld) [#/Vol] 5.09 10*6/uL Normal 4.21-5.77 [facility] Comment on above: Performed By: #### B MP, MG, CDP, TROPI #### [facility] [address] [place] [address] Chief Technology Officer: Marlon Mack MD WBC (Bld) [#/Vol] 9.2 10*3/uL Normal 3.5-11.3 [facility] Comment on above: Performed By: #### B MP, MG, CDP, TROPI #### [facility] [address] [place] [address] Chief Technology Officer: Marlon Mack MD Glucose, Whole Bloodon 11-28 Glucose [Mass/Vol] 115 mg/dL High 74-100 [facility] Glucose [Mass/Vol] 81 mg/dL Normal 74-100 [facility] Magnesiumon 11-28-2023 Magnesium [Mass/Vol] 2.5 mg/dL Normal 1.6-2.6 [facility] Comment on above: Performed By: #### B MP, MG, CDP, TROPI #### [facility] [address] [place] [address] Chief Technology Officer: Marlon Mack MD Myasthenia Grav Pnlon 2023 Acetylchol Bind Ab 0.0 nmol/L Normal 0.0-0.4 [facility] Comment on above: Result Comment: (NOT [...] developed and its performance characteristics determined by [facility]. It has not been cleared or approved by the [place] Food and Drug Administration. This test was performed in a CLIA certified laboratory and is intended for clinical purposes. Performed By: #### A XUAN, GLYHGB, CRP, SED, PE, CDP, TSHX, HIVCMB, CK, ANAX, CP, B12FOL, VD25, AHCV #### [address] [place] [address] Chief Technology Officer: Jasbir Montalvo MD #### PACHECO DUARTE #### [facility] [address] [place] [address] Chief Technology Officer: Samuel Olivia MD Acetylchol Block Ab 0 % Normal 0-26 [facility] Comment on above: Result Comment: (NOT [...] developed and its performance characteristics determined by [facility]. It has not been cleared or approved by the [place] Food and Drug Administration. This test was performed in a CLIA certified laboratory and is intended for clinical purposes. Performed By: #### A XUAN, GLYHGB, CRP, SED, PE, CDP, TSHX, HIVCMB, CK, ANAX, CP, B12FOL, VD25, AHCV #### [facility] [address] [place] [address] Chief Technology Officer: Jasbir Montalvo MD #### PACHECO DUARTE #### [facility] [address] [place] [address] Chief Technology Officer: Samuel Olivia MD Striated Musc Ab IgG <1:40 Normal <1:40 [facility] Comment on above: Result Comment: (NOT [...] developed and its performance characteristics determined by [facility]. It has not been cleared or approved by the [place] Food and Drug Administration. This test was performed in a CLIA certified laboratory and is intended for clinical purposes. Performed By: #### A XUAN, GLYHGB, CRP, SED, PE, CDP, TSHX, HIVCMB, CK, ANAX, CP, B12FOL, VD25, AHCV #### [address] [place], [place] [id number] Chief Technology Officer: Jasbir Montalvo MD #### PACHECO DUARTE #### [facility] [address] [place] [address] Chief Technology Officer: Samuel Olivia MD Titin Antibody 0.35 IV Normal 0.00-0.45 [facility] Comment on above: Result Comment: (NOT [...] developed and its performance characteristics determined by [facility]. It has not been cleared or approved by the [place] Food and Drug Administration. This test was performed in a CLIA certified laboratory and is intended for clinical purposes. Performed By: [facility] [address] [place] [address] Floor Covering Contractor: Uriah Prasad MD, PhD CLIA Number: [id number] Performed By: #### A XUAN, GLYHGB, CRP, SED, PE, CDP, TSHX, HIVCMB, CK, ANAX, CP, B12FOL, VD25, AHCV #### [address] [place], [place] 4835508 Chief Technology Officer: Jasbir Montalvo MD #### PACHECO DUARTE #### [facility] [address] [place] [address] Chief Technology Officer: Samuel Olivia MD Thyroid Stim. Horm.on 2023 Thyroid Stim. Horm. 0.43 uIU/mL Normal 0.30-5.00 [facility] Comment on above: Performed By: #### T SH #### [facility] [address] [place] [address] [place] [address] Chief Technology Officer: Marlon Mack MD Troponinon 11-28-2023 Troponin, High Sens 25 ng/L [facility] 0-22 [facility] Comment on above: Result Comment: High Sensitivity Troponin values cannot be compared with other Troponin methodologies. Performed By: #### T ROPI #### [facility] [address] [place] [address] [place] [address] Chief Technology Officer: Marlon Mack MD Troponin, High Sens 24 ng/L [facility] 0-22 [facility] Comment on above: Result Comment: High Sensitivity Troponin values cannot be compared with other Troponin methodologies. Performed By: #### B MP, MG, CDP, TROPI #### [address] [place] [address] Chief Technology Officer: Marlon Mack MD Lyme Dis Rflex Pnlon 024 B burgdorferi Abs, Total 0.37 IV Normal <=0.90 [facility] Comment on above: Result Comment: (NOT [...] antibodies to B. burgdorferi detected. Performed By: [facility] [address] [place] [address] Floor Covering Contractor: Uriah Prasad MD, PhD CLIA Number: [id number] Performed By: #### A XUAN, GLYHGB, CRP, SED, PE, CDP, TSHX, HIVCMB, CK, ANAX, CP, B12FOL, VD25, AHCV #### [address] [address] Chief Technology Officer: Jasbir Montalvo MD #### ASHVIN DUARTERP #### [facility] [address] [place], [place] [phone] Chief Technology Officer: Samuel Olivia MD Prot. Electroph, Blon 2023 Pathologist Review: Reviewed by pathologist: Shirley Fernando M.D. Normal [facility] Comment on above: Performed By: #### A XUAN, GLYHGB, CRP, SED, PE, CDP, TSHX, HIVCMB, CK, ANAX, CP, B12FOL, VD25, AHCV #### [address] [id number] Chief Technology Officer: Jasbir Montalvo MD #### ASHVIN DUARTERP #### [facility] [address], [place] [id number] Chief Technology Officer: Samuel Olivia MD Prot. Elect-Interp NORMAL ELECTROPHORETIC PATTERN Normal [facility] Comment on above: Performed By: #### A XUAN, GLYHGB, CRP, SED, PE, CDP, TSHX, HIVCMB, CK, ANAX, CP, B12FOL, VD25, AHCV #### [address] [id number] Chief Technology Officer: Jasbir Montalvo MD #### PCAHECO DUARTE #### [facility] [address], [place] [id number] Chief Technology Officer: Samuel Olivia MD B12/Folate Panelon 4 Folic Acid 7.4 ng/mL Normal 4.8-24.2 [facility] Comment on above: Performed By: #### A XUAN, GLYHGB, CRP, SED, PE, CDP, TSHX, HIVCMB, CK, ANAX, CP, B12FOL, VD25, AHCV #### [address] [address] Chief Technology Officer: Jasbir Montalvo MD #### AMGE, ALYARP #### [facility] [address] [place] [address] Chief Technology Officer: Samuel Olivia MD Prot. Electroph, Blon 2023 Albumin [Mass/Vol] 4.2 g/dL Normal 3.2-5.2 [facility] Comment on above: Performed By: #### A XUAN, GLYHGB, CRP, SED, PE, CDP, TSHX, HIVCMB, CK, ANAX, CP, B12FOL, VD25, AHCV #### [address] [address] Chief Technology Officer: Jasbir Montalvo MD #### ASHVIN DUARTERP #### [facility] [address] [place] [address] Chief Technology Officer: Samuel Olivia MD Albumin, % 59 % Normal 45-65 [facility] Comment on above: Performed By: #### A XUAN, GLYHGB, CRP, SED, PE, CDP, TSHX, HIVCMB, CK, ANAX, CP, B12FOL, VD25, AHCV #### [address] [address] Chief Technology Officer: Jasbir Montalvo MD #### ASHVIN DUARTERP #### [facility] [address], [place] [id number] Chief Technology Officer: Samuel Olivia MD Ffwps-5-wsbofgenh 0.2 g/dL Normal 0.1-0.4 [facility] Comment on above: Performed By: #### A XUAN, GLYHGB, CRP, SED, PE, CDP, TSHX, HIVCMB, CK, ANAX, CP, B12FOL, VD25, AHCV #### [address] [address] Chief Technology Officer: Jasbir Montalvo MD #### ASHVIN DUARTERP #### [facility] [address], [place] [id number] Chief Technology Officer: Samuel Olivia MD Zzbic-7-uystsvkro,% 3 % Normal 3-6 [facility] Comment on above: Performed By: #### A XUAN, GLYHGB, CRP, SED, PE, CDP, TSHX, HIVCMB, CK, ANAX, CP, B12FOL, VD25, AHCV #### [facility] [address] [place] [address] [id number] Chief Technology Officer: Jasbir Montalvo MD #### PACHECO DUARTE #### [facility] [address], [place] [id number] Chief Technology Officer: Samuel Olivia MD Rfzra-8-ufjomxtho 0.9 g/dL Normal 0.5-0.9 [facility] Comment on above: Performed By: #### A XUAN, GLYHGB, CRP, SED, PE, CDP, TSHX, HIVCMB, CK, ANAX, CP, B12FOL, VD25, AHCV #### [facility] [address] [place] [address] [id number] Chief Technology Officer: Jasbir Montalvo MD #### PACHECO DUARTE #### [facility] [address], [place] [id number] Chief Technology Officer: Samuel Olivia MD Urfgw-6-jxybulbmd,% 13 % Normal 6-13 [facility] Comment on above: Performed By: #### A XUAN, GLYHGB, CRP, SED, PE, CDP, TSHX, HIVCMB, CK, ANAX, CP, B12FOL, VD25, AHCV #### [facility] [address] [place] [address] [id number] Chief Technology Officer: Jasbir Montalvo MD #### ASHVIN DUARTERP ####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 ACETYLCHOLINE BINDING, QUAL Negative Normal Negative [facility] Comment on above: Order Comment: Speci fritz Type: BLOOD SPECIMENOrdering Facility: [facility] Address: [address] [place] [address] Result Comment: Anti -acetylcholine receptor binding antibody test is used as an aid in diagnosis of myasthenia gravis. A negative result cannot exclude myasthenia gravis. Clinical correlation is required. Performed By: #### A CHRAB ####[facility] [id number] [facility] [id number] [address] [place] Acetylcholine receptor binding Ab (S) [Moles/Vol] <0.02 Normal <0.21 [facility] Comment on above: Order Comment: Speci men Type: BLOOD SPECIMENOrdering Facility: [facility] Address: [address] [place] [address] Performed By: #### A CHRAB ####[facility] [id number] [place] [address] [place] ACETYLCHOLINE REC BLOCKING A Bon 09-19-2023 ACETYLCHOLINE BLOCKING, QUAL Negative Normal Negative [facility] Comment on above: Order Comment: Sherry hu Type: BLOOD SPECIMEN Ordering Facility: [facility] Address: [address] [place] [address] Result Comment: Anti -acetylcholine receptor blocking antibody test is used as an aid in diagnosis of myasthenia gravis. A negative result cannot exclude myasthenia gravis. Clinical correlation is required. Performed By: #### A CEBAB #### [facility] CLIA [id number] [address] [place] [address] Acetylcholine receptor blocking Ab/Acetylcholine Ab.total (S) [Molar fraction] <13 Normal <21 [facility] Comment on above: Order Comment: Mati fritz Type: BLOOD SPECIMEN Ordering Facility: [facility] Address: [address] [place] [address] Performed By: #### A CEBAB #### [facility] CLIA [id number] [address] [place] [address] [facility] CNOVon 09-19-2023 CNOV Office Visit (NREUS2 ) ANDRY PIERRE ([id number]) 1960 M Date Time Provider Department 09/19/23 11:00 AM SHANE PARHAM NREUS2 During your visit today, we recorded the following information about you: Pulse Blood pressure 82/minute 133/69 Shane Parham, OLAYINKA 09/19/2023 4:39 PM Signed [facility] - FOLLOW UP EVALUATION Say Mccormick MD [phone] [facility] [id number] Dear Say Mccormick MD: I had the [...] Row Office Visit from 09/19/2023 in [facility] PAT from 01/21/2022 in [facility] [...] it Current Outpatient Medications Medication Sig Insulin [place], Disposable, (BD INSULIN PEN NEEDLE UF) 29 [...] 1 tab (more content not included)... [facility] (NREUS2) ANDRY PIERRE ([id number]) 1960 M Date Time Provider Department 09/12/23 [...] ? Last office visit 01/21/22 with Rhianna aLm 09/12/2023 2:44 PM Signed Mr. Pierre phoned [...] [employer] specialist reach out to him. [facility] 09/15/2023 10:25 AM Signed Pt called to report he spoke with [employer] rep who determined remote was bad-pt received remote overnight. Pt still shaking (2 months) and stuttering for for 2 months, dizzy and can hardly walk - [phone]. Pranav Bhatia 09/16/2023 4:24 PM Signed Patient [...] capsule by mouth four times daily. - HYDROcodone-acetamino phen (NORCO) 5-325 mg per tablet Take 1 [...] with infarction (more content not included)... Normal [facility] José Antonio 07-07-2023 CHRISTIANNE Telephone (NREUS2) LESLYANDRY ([id number]) 1960 M Date Time Provider Department 07/07/23 [...] RN 07/10/2023 9:15 AM Addendum Spoke with warehouse representative from Dr. Kumar's office, they report [...] capsule by mouth four times daily. - HYDROcodone-acetamino phen (NORCO) 5-325 mg per tablet Take 1 [...] Status:Closed by KERWIN BRITO on 07/10/23 Normal [facility] INSULINon 02-21-2023 Insulin 9.5 uIU/mL Normal 2.6-24.9 [facility] Comment on above: Performed By: #### I NSULIN #### [facility] [address] [place] [address] Dr. Miah Buck XR LSPINE 2_3 VIEWSon [...] Date: 2023-02-21 06:19 Normal [facility] BNPon 02-20-2023 Natriuretic peptide B (Bld) [Mass/Vol] 52.0 pg/mL Normal <=900.0 [facility] Comment on above: Performed By: #### M G, CMP, BNP, TSH, CRP #### [facility] [address] [place] [address] Dr. Miah Buck CBC AUTO DIFFon 02-20-2023 BASO # 0.1 103/ul Normal 0.0-0.1 [facility] Comment on above: Performed By: #### A 1C #### [facility] [address] [place] [address] Dr. Miah Buck Basophils/100 WBC (Bld) 0.8 % Normal 0.2-2.0 [facility] Comment on above: Performed By: #### A 1C #### [facility] [address] [place] [address] Dr. Miah Buck EO # 0.3 103/ul Normal 0.0-0.7 [facility] Comment on above: Performed By: #### A 1C #### [facility] [address] [place] [address] Dr. Miah Buck Eosinophils/100 WBC (Bld) 3.5 % Normal 0.9-7.0 [facility] Comment on above: Performed By: #### A 1C #### [facility] [address] [place] [address] Dr. Miah Buck Erythrocyte distribution width (RBC) [Ratio] 12.7 % Normal 11.0-15.0 [facility] Comment on above: Performed By: #### A 1C #### [facility] [address] [place] [address] Dr. Miah Buck Hematocrit (Bld) [Volume fraction] 48.8 % Normal 42.0-54.0 [facility] Comment on above: Performed By: #### A 1C #### [facility] [address] [place] [address] Dr. Miah Buck Hemoglobin (Bld) [Mass/Vol] 16.8 g/dL Normal 14.0-18.0 [facility] Comment on above: Performed By: #### A 1C #### [facility] [address] [place] [address] Dr. Miah Buck IG # 0.04 10e3/ul Critically high 0.00-0.03 [facility] Comment on above: Performed By: #### A 1C #### [facility] [address] [place] [address] Dr. Miah Buck IG % 0.6 % Critically high 0.0-0.5 [facility] Comment on above: Performed By: #### A 1C #### [facility] [address] [place] [address] Dr. Miah Buck LYMPH # 1.9 103/ul Normal 1.2-3.8 [facility] Comment on above: Performed By: #### A 1C #### [facility] [address] [place] [address] Dr. Miah Buck Lymphocytes/100 WBC (Bld) 27.0 % Normal 20.5-60.0 [facility] Comment on above: Performed By: #### A 1C #### [facility] [address] [place] [address] Dr. Miah Buck MANUAL DIFF REQ NO Normal [facility] Comment on above: Performed By: #### A 1C #### [facility] [address] [place] [address] Dr. Miah Buck MCH (RBC) [Entitic mass] 31.5 pg Normal 25.9-34.0 [facility] Comment on above: Performed By: #### A 1C #### [facility] [address] [place] [address] Dr. Miah Buck MCHC (RBC) [Mass/Vol] 34.4 g/dL Normal 29.9-35.2 [facility] Comment on above: Performed By: #### A 1C #### [facility] [address] [place] [address] Dr. Miah Buck MCV (RBC) [Entitic vol] 91.4 fL Normal 80.0-94.0 [facility] Comment on above: Performed By: #### A 1C #### [facility] [address] [place] [address] Dr. Miah Buck MONO # 0.4 103/ul Normal 0.3-0.8 [facility] Comment on above: Performed By: #### A 1C #### [facility] [address] [place] [address] Dr. Miah Buck Monocytes/100 WBC (Bld) 5.5 % Normal 1.7-12.0 [facility] Comment on above: Performed By: #### A 1C #### [facility] [address] [place] [address] Dr. Miah Buck NEUT # 4.5 103/ul Normal 1.4-6.5 [facility] Comment on above: Performed By: #### A 1C #### [facility] [address] [address] [address] Miah Buck Neutrophils/100 WBC (Bld) 62.6 % Normal 43.0-75.0 [facility] Comment on above: Performed By: #### A 1C #### [facility] [address] [address] [address] Maih Buck Platelet mean volume (Bld) [Entitic vol] 10.6 fL Normal 9.5-13.5 [facility] Comment on above: Performed By: #### A 1C #### [facility] [address] [place] [address] Dr. Miah Buck PLT 204 103/ul Normal 150-450 [facility] Comment on above: Performed By: #### A 1C #### [facility] [address] [place] [address] Dr. Miah Buck RBC 5.34 106/ul Normal 4.70-6.10 [facility] Comment on above: Performed By: #### A 1C #### [facility] [address] [place] [address] Dr. Miah Buck WBC 7.2 103/ul Normal 4.0-11.0 [facility] Comment on above: Performed By: #### A 1C #### [facility] [address] [place] [address] Dr. Miah Buck DIRECT LDLon 02-20-2023 Cholesterol in LDL [Mass/Vol] 173 mg/dL Normal [facility] Comment on above: Performed By: #### A 1C #### [facility] [address] [place] [address] Dr. Miah Buck DLDL NORMAL SEE BELOW Normal [facility] Comment on above: Result Comment: <100 mg/dl OPTIMAL 100 - 129 mg/dl NEAR OR ABOVE OPTIMAL 130 - 159 mg/dl BORDERLINE HIGH 160 - 189 mg/dl HIGH >190 mg/dl VERY HIGH Performed By: #### A 1C #### [facility] [address] [place] [address] Dr. Miah Buck FREE T3on 02-20-2023 FREE T3 1.75 pg/mlL Critically low 2.18-3.[address] [facility] Comment on above: Performed By: #### A 1C #### [facility] [address] [address] [address] Miah Buck GLYCOHEMOGLOBIN A1Con 2022 ADA RECOMMENDATION SEE BELOW Normal [facility] Comment on above: Result Comment: ADA RECOMMENDED LIMIT 4.0 - 6.0 ADA THERAPEUTIC TARGET < 7.0 ACTION SUGGESTED > 7.0 Performed By: #### A 1C #### [facility] [address] [address] [address] Miah Buck Glucose [Mass/Vol] 298 mg/dL Normal [facility] Comment on above: Performed By: #### A 1C #### [facility] [address] [address] [address] Miah Buck HbA1c (Bld) [Mass fraction] 12.0 % Critically high 4.5-6.2 [facility] Comment on above: Performed By: #### A 1C #### [facility] [address] [address] [address] Miah Buck LIPID PROFILEon 02-20-2023 CHOL-HDL RATIO NORM SEE BELOW Normal [facility] Comment on above: Result Comment: 3.3 - 4.4 LOW RISK 4.4 - 7.1 AVERAGE RISK 7.1 - 11.0 MODERATE RISK >11.0 HIGH RISK Performed By: #### A 1C #### [facility] [address] [address] [address] Miah Buck Cholesterol [Mass/Vol] 303 mg/dL Critically high <=200 [facility] Comment on above: Performed By: #### A 1C #### [facility] [address] [address] [address] Miah Buck Cholesterol in HDL [Mass/Vol] 33 mg/dL Critically low 40-60 [facility] Comment on above: Performed By: #### A 1C #### [facility] [address] [address] [address] Miah Buck Cholesterol.total/Cho lesterol in HDL [Mass ratio] 9.2 {ratio} Normal [facility] Comment on above: Performed By: #### A 1C #### [facility] [address] [place] [address] Dr. Miah Buck HDL NORMAL > or = 60 mg/dl - LO W CARDIOVASCULAR RISK <40 mg/dl - HIGH CARDIOVASCULAR RISK Normal [facility] Comment on above: Performed By: #### A 1C #### [facility] [address] [address] [address] Miah Buck Triglyceride [Mass/Vol] 454 mg/dL Critically high <=150 [facility] Comment on above: Performed By: #### A 1C #### [facility] [address] [place] [address] Dr. Miah Buck VLDL CALC 90.8 mg/dL Normal [facility] Comment on above: Performed By: #### A 1C #### [facility] [address] [place] [address] Dr. Miah Buck PROF 14(COMP METB)on 023 Albumin [Mass/Vol] 3.5 g/dL Normal 3.4-5.0 [facility] Comment on above: Performed By: #### A 1C #### [facility] [address] [place] [address] Dr. Miah Buck Albumin/Globulin [Mass ratio] 0.7 {ratio} Normal [facility] Comment on above: Performed By: #### A 1C #### [facility] [address] [place] [address] Dr. Miah Buck ALP [Catalytic activity/Vol] 146 U/L Critically high 46-116 [facility] Comment on above: Performed By: #### A 1C #### [facility] [address] [address] [address] Miah Buck ALT [Catalytic activity/Vol] 40 U/L Normal 16-63 [facility] Comment on above: Performed By: #### A 1C #### [facility] [address] [address] [address] Miah Buck Anion gap [Moles/Vol] 13.8 mmol/L Normal [facility] Comment on above: Performed By: #### A 1C #### [facility] [address] [address] [address] Miah Buck AST [Catalytic activity/Vol] 19 U/L Normal 15-37 [facility] Comment on above: Performed By: #### A 1C #### [facility] [address] [address] [address] Miah Buck Bilirubin [Mass/Vol] 0.4 mg/dL Normal 0.2-1.0 [facility] Comment on above: Performed By: #### A 1C #### [facility] [address] [address] [address] Miah Buck Calcium [Mass/Vol] 9.1 mg/dL Normal 8.5-10.1 [facility] Comment on above: Performed By: #### A 1C #### [facility] [address] [address] [address] Miah Buck Chloride [Moles/Vol] 99 mmol/L Normal 98-107 [facility] Comment on above: Performed By: #### A 1C #### [facility] [address] [address] [address] Miah Buck CO2 [Moles/Vol] 27.6 mmol/L Normal 21.0-32.0 [facility] Comment on above: Performed By: #### A 1C #### [facility] [address] [address] [address] Miah Buck Creatinine [Mass/Vol] 1.88 mg/dL Critically high 0.70-1.30 [facility] Comment on above: Performed By: #### A 1C #### [facility] [address] [address] [address] Miah Buck EGFR-AF CYMRAES 44 mL/min/1.73m2 Critically low >=60 [facility] Comment on above: Performed By: #### A 1C #### [facility] [address] [address] [address] Miah Buck EGFR-NON AF CYMRAES 37 mL/min/1.73m2 Critically low >=60 [facility] Comment on above: Performed By: #### A 1C #### [facility] [address] [address] [address] Miah Buck Globulin (S) [Mass/Vol] 4.7 g/dL Normal [facility] Comment on above: Performed By: #### A 1C #### [facility] [address] [address] [address] Miah Buck Glucose [Mass/Vol] 524 mg/dL Critically high 74-106 [facility] Comment on above: Performed By: #### A 1C #### [facility] [address] [address] [address] Miah Buck Potassium [Moles/Vol] 4.4 mmol/L Normal 3.5-5.1 [facility] Comment on above: Performed By: #### A 1C #### [facility] [address] [place] [address] Dr. Miah Buck Protein [Mass/Vol] 8.2 g/dL Normal 6.4-8.2 [facility] Comment on above: Performed By: #### A 1C #### [facility] [address] [place] [address] Dr. Miah Buck Sodium [Moles/Vol] 136 mmol/L Normal 136-145 [facility] Comment on above: Performed By: #### A 1C #### [facility] [address] [place] [address] Dr. Miah Buck Urea nitrogen [Mass/Vol] 21.0 mg/dL Critically high 7.0-18.0 [facility] Comment on above: Performed By: #### A 1C #### [facility] [address] [place] [address] Dr. Miah Buck Urea nitrogen/Creatinine [Mass ratio] 11.2 mg/mg Normal [facility] Comment on above: Performed By: #### A 1C #### [facility] [address] [address] [address] Miah Buck T4on 02-20-2023 T4 [Mass/Vol] 7.80 ug/dL Normal 4.50-12.10 [facility] Comment on above: Performed By: #### A 1C #### [facility] [address] [place] [address] Dr. Miah Buck TSHon 02-20-2023 TSH 0.740 uIU/mL Normal 0.358-3.740 [facility] Comment on above: Performed By: #### A 1C #### [facility] [address] [place] [address] Dr. Miah Buck URIC ACID SERUMon 02-20-2023 Urate [Mass/Vol] 8.2 mg/dL Critically high 3.5-7.2 [facility] Comment on above: Performed By: #### A 1C #### [facility] [address] [place] [address] Dr. Miah Buck CREATININEon 01-07-2023 Creatinine [Mass/Vol] 2.09 mg/dL Critically high 0.70-1.30 [facility] Comment on above: Performed By: #### M G, CMP, BNP, TSH, CRP #### [facility] [address] [place] [address] Dr. Miah Buck EGFR-AF CYMRAES 39 mL/min/1.73m2 Critically low >=60 [facility] Comment on above: Performed By: #### M G, CMP, BNP, TSH, CRP #### [facility] [address] [place] [address] Dr. Miah Buck EGFR-NON AF CYMRAES 32 mL/min/1.73m2 Critically low >=60 [facility] Comment on above: Performed By: #### M G, CMP, BNP, TSH, CRP #### [facility] [address] [place] [address] ABD/PELV W CONon 01-08-20 CT ABD/PELV W CON EXAMINATION: CT ABD/PELV W CON HISTORY: Abdominal pain ; right [...] Date: 2023-01-07 10:18 Normal [facility] Covid-19 PCR (CVDTB)on SARS-CoV-2 (COVID-19) RNA EMMY+probe Ql (Unsp spec) Not detected Normal NOT DETECTED [facility] Comment on above: Result Comment: This test is not yet approved or cleared by the [place] FDA. When there are no FDA-approved or cleared tests available, and other criteria are met, FDA can make tests available under an emergency access mechanism called an Emergency Use Authorization (EUA). The EUA for this test is supported by the [place] of Health and Human Service's (HHS's) declaration [...] CMP, BNP, TSH, CRP #### [facility] [address] HEAD WO CONon [...] Date: 2022-05-29 09:41 Normal [facility] CT NECK ST WO CONon [...] Date: 2022-05-29 10:26 Normal [facility] VIT D 25-OH LABCORPon 2021 Vitamin D, 25-Hydroxy 27.6 ng/mL Critically low 30.0-100.0 [facility] Comment on above: Result Comment: Rima min D deficiency has been defined by the [place] of Medicine and an Endocrine Society practice guideline as a level of serum 25-OH vitamin D less than 20 ng/mL (1,2). The Endocrine Society went on to further define vitamin D insufficiency as a level between 21 and 29 ng/mL (2). 1. IOM ([place] of Medicine). 2010. Dietary reference intakes for calcium and D. [place]: The National Academies Press. 2. Su MF, Agapito HOSKINS, Mason KAUFMAN, et al. Evaluation, treatment, and prevention of vitamin D deficiency: an Endocrine Society clinical practice guideline. JCEM. 2010; 96(7):1911-30. Performed By: #### V ITADLC #### [facility] [address] [address] [address] Miah Buck XR CHEST 2 Von [...] Date: 2022-05-24 07:37 Normal [facility] BNPon 05-23-2022 Natriuretic peptide B (Bld) [Mass/Vol] 53.0 pg/mL Normal <=900.0 [facility] Comment on above: Performed By: #### M G, CMP, BNP, TSH, CRP #### [facility] [address] [address] [address] Miah Buck CBC AUTO DIFFon 05-23-2022 BASO # 0.1 103/ul Normal 0.0-0.1 [facility] Comment on above: Performed By: #### A 1C #### [facility] [address] [place] [address] Dr. Miah Buck Basophils/100 WBC (Bld) 0.7 % Normal 0.2-2.0 [facility] Comment on above: Performed By: #### A 1C #### [facility] [address] [place] [address] Dr. Miah Buck EO # 0.3 103/ul Normal 0.0-0.7 [facility] Comment on above: Performed By: #### A 1C #### [facility] [address] [place] [address] Dr. Miah Buck Eosinophils/100 WBC (Bld) 4.0 % Normal 0.9-7.0 [facility] Comment on above: Performed By: #### A 1C #### [facility] [address] [place] [address] Dr. Miah Buck Erythrocyte distribution width (RBC) [Ratio] 13.4 % Normal 11.0-15.0 [facility] Comment on above: Performed By: #### A 1C #### [facility] [address] [place] [address] Dr. Miah Buck Hematocrit (Bld) [Volume fraction] 46.1 % Normal 42.0-54.0 [facility] Comment on above: Performed By: #### A 1C #### [facility] [address] [place] [address] Dr. Miah Buck Hemoglobin (Bld) [Mass/Vol] 15.5 g/dL Normal 14.0-18.0 [facility] Comment on above: Performed By: #### A 1C #### [facility] [address] [place] [address] Dr. Miah Buck IG # 0.03 10e3/ul Normal 0.00-0.03 [facility] Comment on above: Performed By: #### A 1C #### [facility] [address] [place] [address] Dr. Miah Buck IG % 0.4 % Normal 0.0-0.5 [facility] Comment on above: Performed By: #### A 1C #### [facility] [address] [place] [address] Dr. Miah Buck LYMPH # 2.0 103/ul Normal 1.2-3.8 [facility] Comment on above: Performed By: #### A 1C #### [facility] [address] [place] [address] Dr. Miah Buck Lymphocytes/100 WBC (Bld) 28.1 % Normal 20.5-60.0 [facility] Comment on above: Performed By: #### A 1C #### [facility] [address] [place] [address] Dr. Miah Buck MANUAL DIFF REQ NO Normal [facility] Comment on above: Performed By: #### A 1C #### [facility] [address] [place] [address] Dr. Miah Buck MCH (RBC) [Entitic mass] 31.8 pg Normal 25.9-34.0 [facility] Comment on above: Performed By: #### A 1C #### [facility] [address] [place] [address] Dr. Miah Buck MCHC (RBC) [Mass/Vol] 33.6 g/dL Normal 29.9-35.2 [facility] Comment on above: Performed By: #### A 1C #### [facility] [address] [place] [address] Dr. Miah Buck MCV (RBC) [Entitic vol] 94.7 fL Critically high 80.0-94.0 [facility] Comment on above: Performed By: #### A 1C #### [facility] [address] [place] [address] Dr. Miah Buck MONO # 0.5 103/ul Normal 0.3-0.8 [facility] Comment on above: Performed By: #### A 1C #### [facility] [address] [place] [address] Dr. Miah Buck Monocytes/100 WBC (Bld) 7.1 % Normal 1.7-12.0 [facility] Comment on above: Performed By: #### A 1C #### [facility] [address] [place] [address] Dr. Miah Buck NEUT # 4.3 103/ul Normal 1.4-6.5 [facility] Comment on above: Performed By: #### A 1C #### [facility] [address] [place] [address] Dr. Miah Buck Neutrophils/100 WBC (Bld) 59.7 % Normal 43.0-75.0 [facility] [facility] Comment on above: Performed By: #### A 1C #### [facility] [address] [place] [address] Dr. Miah Buck Platelet mean volume (Bld) [Entitic vol] 10.6 fL Normal 9.5-13.5 [facility] Comment on above: Performed By: #### A 1C #### [facility] [address] [place] [address] Dr. Miah Buck PLT 209 103/ul Normal 150-450 [facility] Comment on above: Performed By: #### A 1C #### [facility] [address] [place] [address] Dr. Miah Buck RBC 4.87 106/ul Normal 4.70-6.10 [facility] Comment on above: Performed By: #### A 1C #### [facility] [address] [place] [address] Dr. Miah Buck WBC 7.2 103/ul Normal 4.0-11.0 [facility] Comment on above: Performed By: #### A 1C #### [facility] [address] [place] [address] Dr. Miah Buck CRPon 05-23-2022 CRP 1.0 mg/dL Normal <=1.0 [facility] Comment on above: Performed By: #### M G, CMP, BNP, TSH, CRP #### [facility] [address] [place] [address] Dr. Miah Buck ECHOCARDIO M/2D COMPLETEon 0 05-23-2022 ECHOCARDIO M/2D COMPLETE Patient: ANDRY PIERRE Exam Date: 05/23/2022 : 1960 Gender:M Ordering : [facility] Admission #: [id number] Family : SAY MCCORMICK . Order #: [id number] CLICK HERE TO VIEW EXAM ECHOCARDIOGRAM REPORT [...] Pearce M.D. on 05/23/2022 at 18:40 Normal [facility] MAGNESIUMon 05-23-2022 Magnesium [Mass/Vol] 2.3 mg/dL Normal 1.8-2.4 [facility] Comment on above: Performed By: #### M G, CMP, BNP, TSH, CRP #### [facility] [address] [address] [address] Miah Buck PROF 14(COMP METB)on 022 Albumin [Mass/Vol] 3.6 g/dL Normal 3.4-5.0 [facility] Comment on above: Performed By: #### M G, CMP, BNP, TSH, CRP #### [facility] [address] [address] [address] Miah Buck Albumin/Globulin [Mass ratio] 0.9 {ratio} Normal [facility] Comment on above: Performed By: #### M G, CMP, BNP, TSH, CRP #### [facility] [address] [place] [address] Dr. Miah Buck ALP [Catalytic activity/Vol] 113 U/L Normal 46-116 [facility] Comment on above: Performed By: #### M G, CMP, BNP, TSH, CRP #### [facility] [address] [address] [address] Miah Buck ALT [Catalytic activity/Vol] 34 U/L Normal 16-63 [facility] Comment on above: Performed By: #### M G, CMP, BNP, TSH, CRP #### [facility] [address] [address] [address] Miah Buck Anion gap [Moles/Vol] 10.7 mmol/L Normal [facility] Comment on above: Performed By: #### M G, CMP, BNP, TSH, CRP #### [facility] [address] [address] [address] Miah Buck AST [Catalytic activity/Vol] 23 U/L Normal 15-37 [facility] Comment on above: Performed By: #### M G, CMP, BNP, TSH, CRP #### [facility] [address] [address] [address] Miah Buck Bilirubin [Mass/Vol] 0.3 mg/dL Normal 0.2-1.0 [facility] Comment on above: Performed By: #### M G, CMP, BNP, TSH, CRP #### [facility] [address] [place] [address] Dr. Miah Buck Calcium [Mass/Vol] 8.9 mg/dL Normal 8.5-10.1 [facility] Comment on above: Performed By: #### M G, CMP, BNP, TSH, CRP #### [facility] [address] [address] [address] iMah Buck Chloride [Moles/Vol] 105 mmol/L Normal 98-107 [facility] Comment on above: Performed By: #### M G, CMP, BNP, TSH, CRP #### [facility] [address] [place] [address] Dr. Miah Buck CO2 [Moles/Vol] 26.5 mmol/L Normal 21.0-32.0 [facility] Comment on above: Performed By: #### M G, CMP, BNP, TSH, CRP #### [facility] [address] [place] [address] Dr. Miah Buck Creatinine [Mass/Vol] 1.73 mg/dL Critically high 0.70-1.30 [facility] Comment on above: Performed By: #### M G, CMP, BNP, TSH, CRP #### [facility] [address] [place] [address] Dr. Miah Buck EGFR-AF CYMRAES 49 mL/min/1.73m2 Critically low >=60 [facility] Comment on above: Performed By: #### M G, CMP, BNP, TSH, CRP #### [facility] [address] [place] [address] Dr. Miah Buck EGFR-NON AF CYMRAES 40 mL/min/1.73m2 Critically low >=60 [facility] Comment on above: Performed By: #### M G, CMP, BNP, TSH, CRP #### [facility] [address] [place] [address] Dr. Miah Buck Globulin (S) [Mass/Vol] 4.0 g/dL Normal [facility] Comment on above: Performed By: #### M G, CMP, BNP, TSH, CRP #### [facility] [address] [address] [address] Miah Buck Glucose [Mass/Vol] 285 mg/dL Critically high 74-106 [facility] Comment on above: Performed By: #### M G, CMP, BNP, TSH, CRP #### [facility] [address] [address] [address] Miah Buck Potassium [Moles/Vol] 4.2 mmol/L Normal 3.5-5.1 [facility] Comment on above: Performed By: #### M G, CMP, BNP, TSH, CRP #### [facility] [address] [address] [address] Miah Buck Protein [Mass/Vol] 7.6 g/dL Normal 6.4-8.2 [facility] Comment on above: Performed By: #### M G, CMP, BNP, TSH, CRP #### [facility] [address] [address] [address] Miah Buck Sodium [Moles/Vol] 138 mmol/L Normal 136-145 [facility] Comment on above: Performed By: #### M G, CMP, BNP, TSH, CRP #### [facility] [address] [place] [address] Dr. Miah Buck Urea nitrogen [Mass/Vol] 23.0 mg/dL Critically high 7.0-18.0 [facility] Comment on above: Performed By: #### M G, CMP, BNP, TSH, CRP #### [facility] [address] [place] [address] Dr. Miah Buck Urea nitrogen/Creatinine [Mass ratio] 13.3 mg/mg Normal [facility] Comment on above: Performed By: #### M G, CMP, BNP, TSH, CRP #### [facility] [address] [place] [address] Dr. Miah Buck TSHon 05-23-2022 TSH 0.714 uIU/mL Normal 0.358-3.740 [facility] Comment on above: Performed By: #### M G, CMP, BNP, TSH, CRP #### [facility] [address] [address] [address] Miah Buck VITAMIN B12on 05-23-2022 Cobalamin (Vitamin B12) [Mass/Vol] 930.0 pg/mL Normal 193.0-986.0 [facility] Comment on above: Performed By: #### V ITB12 #### [facility] [address] [address] [address] Miah Buck BASIC METABOLIC PANELon 07-07 Calcium [Mass/Vol] 8.3 mg/dL Low 8.6-10.3 [facility] Comment on above: Order Comment: No: D o not add to previous draw Performed By: #### 1 0070, 94220, 86361, 04923 #### [facility] [address] [place] [address], [place] Chloride [Moles/Vol] 105 mmol/L Normal 98-107 [facility] Comment on above: Order Comment: No: D o not add to previous draw Performed By: #### 1 0070, 03652, 98850, 55594 #### [facility] [address] [place] [address], [place] CO2 [Moles/Vol] 22 mmol/L Normal 21-31 [facility] Comment on above: Order Comment: No: D o not add to previous draw Performed By: #### 1 0070, 91897, 21528, 40045 #### [facility] [address] [place] [address], [place] Creatinine [Mass/Vol] 1.31 mg/dL High 0.70-1.30 [facility] Comment on above: Order Comment: No: D o not add to previous draw Performed By: #### 1 0070, 60882, 17267, 97184 #### [facility] [address] [place] [address], [place] eGFR- non- 56 ml/min/1.73sq m Abnormal >60 [facility] Comment on above: Order Comment: No: D o not add to previous draw Performed By: #### 1 0070, 78989, 02131, 98838 #### [facility] [address] [place] [address], [place] GFR/1.73 sq M.predicted among blacks MDRD (S/P/Bld) [Vol rate/Area] mL/min/{1.73_m2} Normal >60 [facility] Comment on above: Order Comment: No: D o not add to previous draw Performed By: #### 1 0070, 66010, 36844, 75772 #### [facility] [address] [place] [address], [place] Glucose [Mass/Vol] 231 mg/dL High 70-100 [facility] Comment on above: Order Comment: No: D o not add to previous draw Performed By: #### 1 0070, 99906, 73055, 15152 #### [facility] [address] [place] [address], [place] Potassium [Moles/Vol] 3.6 mmol/L Normal 3.5-5.1 [facility] Comment on above: Order Comment: No: D o not add to previous draw Performed By: #### 1 0070, 93249, 66471, 95453 #### [facility] [address] [place] [address], [place] Sodium [Moles/Vol] 139 mmol/L Normal 136-145 [facility] Comment on above: Order Comment: No: D o not add to previous draw Performed By: #### 1 0070, 42177, 06170, 84985 #### [facility] [address] [place] [address], [place] Urea nitrogen [Mass/Vol] 17 mg/dL Normal 7-25 [facility] Comment on above: Order Comment: No: D o not add to previous draw Performed By: #### 1 0070, 54107, 13121, 82160 #### [facility] [address] [facility] [address], [facility] CBC W/DIFFon 07-27-2021 ABS IMM GRANS 0.1 10*3/uL Normal 0.0-0.2 [facility] Comment on above: Performed By: #### 1 0070, 41299, 44756, 86975 #### [facility] [address] [place] [address], [facility] ABS NEUTROPHILS 10.2 10*3/uL High 1.6-7.6 [facility] Comment on above: Performed By: #### 1 0070, 59092, 93999, 47503 #### [facility] [address] [place] [address], [facility] Basophils (Bld) [#/Vol] 0.0 10*3/uL Normal 0.0-0.2 [facility] Comment on above: Performed By: #### 1 0070, 42756, 78750, 95296 #### [facility] [address] [place] [address], [facility] Basophils/100 WBC (Bld) 0.3 % Normal 0.0-1.0 [facility] Comment on above: Performed By: #### 1 0070, 90796, 21080, 19265 #### [facility] [address] [place] [address], [facility] Eosinophils (Bld) [#/Vol] 0.0 10*3/uL Normal 0.0-0.5 [facility] Comment on above: Performed By: #### 1 0070, 53730, 56198, 40613 #### [facility] [address] [place] [address], [facility] Eosinophils/100 WBC (Bld) 0.0 % Normal 0.0-6.0 [facility] Comment on above: Performed By: #### 1 0070, 57341, 99319, 58426 #### [facility] [address] Erythrocyte distribution width (RBC) [Ratio] 13.2 % Normal 11.5-15.0 [facility] Comment on above: Performed By: #### 1 0070, 10025, 22499, 16577 #### [facility] [address] [place] [address], [facility] Hematocrit (Bld) [Volume fraction] 44.2 % Normal 39.0-50.0 [facility] Comment on above: Performed By: #### 1 0070, 52177, 72015, 51046 #### [facility] [address] [facility]. [address] Hemoglobin (Bld) [Mass/Vol] 14.9 g/dL Normal 13.0-17.0 [facility] Comment on above: Performed By: #### 1 0070, 55008, 70746, 67760 #### [facility] [address] [facility] [place] [address], [facility] IMMATURE GRANS 0.7 % Normal 0.0-1.0 [facility] Comment on above: Performed By: #### 1 0070, 33390, 67431, 05562 #### [facility] [address] [facility] [place] [place] [address], [facility] Lymphocytes (Bld) [#/Vol] 1.0 10*3/uL Low 1.2-4.0 [facility] Comment on above: Performed By: #### 1 0070, 65406, 39557, 80333 #### [facility] [address] [facility] [address], [facility] Lymphocytes/100 WBC (Bld) 8.2 % Low 20.0-45.0 [facility] Comment on above: Performed By: #### 1 0070, 09365, 24764, 41850 #### [facility] [address] MCH (RBC) [Entitic mass] 31.2 pg Normal 27.0-33.0 [facility] Comment on above: Performed By: #### 1 0070, 11116, 86417, 69681 #### [facility] [address] [facility] [address], [facility] MCHC (RBC) [Mass/Vol] 33.7 g/dL Normal 32.0-35.0 [facility] Comment on above: Performed By: #### 1 0070, 17466, 39766, 56075 #### [facility] [address] MCV (RBC) [Entitic vol] 92.7 fL Normal 82.0-98.0 [facility] Comment on above: Performed By: #### 1 0, 00734, 12539, 77612 #### [facility] [address] Monocytes (Bld) [#/Vol] 0.9 10*3/uL Normal 0.1-1.0 [facility] Comment on above: Performed By: #### 1 0070, 01143, 00300, 76819 #### [facility] [address] MONOS 7.0 % Normal 5.0-12.0 [facility] Comment on above: Performed By: #### 1 0070, 80072, 34417, 11822 #### [facility] [address] Neutrophils/100 WBC (Bld) 83.8 % High 40.0-72.0 [facility] Comment on above: Performed By: #### 1 0070, 62692, 47245, 16353 #### [facility] [address] Nucleated RBC/100 WBC (Bld) [Ratio] 0 % Normal 0-0 [facility] Comment on above: Performed By: #### 1 0070, 04129, 42324, 09313 #### [facility] [address] [place] [address], [facility] PLAT CNT 198 10*3/uL Normal 150-400 [facility] Comment on above: Performed By: #### 1 0070, 37625, 01683, 86610 #### [facility] [address] [place] [address], [facility] RBC (Bld) [#/Vol] 4.77 10*6/uL Normal 4.20-5.70 [facility] Comment on above: Performed By: #### 1 0070, 70874, 08403, 73403 #### [facility] [address] [place] [address], [facility] WBC (Bld) [#/Vol] 12.15 10*3/uL High 4.00-10.60 [facility] Comment on above: Performed By: #### 1 0070, 56236, 03341, 59669 #### [facility] [address] [place] [address], [facility] LIVER BATTERYon 07-27-2021 Albumin [Mass/Vol] 3.3 g/dL Low 3.5-5.7 [facility] Comment on above: Order Comment: No: D o not add to previous draw Performed By: #### 1 0070, 07782, 77075, 35847 #### [facility] [address] [facility] [place] [address], [facility] ALKALINE PHOSPH 124 IU/L High 34-104 [facility] Comment on above: Order Comment: No: D o not add to previous draw Performed By: #### 1 0070, 46292, 35664, 40566 #### [facility] [address] [place] [address], [facility] ALT [Catalytic activity/Vol] 58 U/L High 7-52 [facility] Comment on above: Order Comment: No: D o not add to previous draw Performed By: #### 1 0070, 82973, 88444, 11665 #### [facility] [address] [place] [address], [facility] AST [Catalytic activity/Vol] 48 U/L High 13-39 [facility] Comment on above: Order Comment: No: D o not add to previous draw Performed By: #### 1 0070, 90617, 44030, 53657 #### [facility] [address] [place] [address], [facility] Bilirubin [Mass/Vol] 0.8 mg/dL Normal 0.3-1.0 [facility] Comment on above: Order Comment: No: D o not add to previous draw Performed By: #### 1 0070, 79611, 55260, 85809 #### [facility] [address] [place] [address], [facility] Bilirubin.direct [Mass/Vol] 0.3 mg/dL High 0.0-0.2 [facility] Comment on above: Order Comment: No: D o not add to previous draw Performed By: #### 1 0070, 66611, 69643, 80300 #### [facility] [address] [place] [address], [facility] Protein [Mass/Vol] 6.2 g/dL Normal 6.0-8.3 [facility] Comment on above: Order Comment: No: D o not add to previous draw Performed By: #### 1 0070, 79263, 25249, 08672 #### [facility] [address] [place] [address], [facility] MAGNESIUM BLOODon 07-27-2021 Magnesium [Mass/Vol] 1.8 mg/dL Low 1.9-2.7 [facility] Comment on above: Order Comment: No: D o not add to previous draw Performed By: #### 1 0070, 26480, 38766, 92752 #### [facility] [address] [place] [address], [facility] PHOSPHORUS BLOODon 1 Phosphate [Mass/Vol] 2.9 mg/dL Normal 2.5-5.0 [facility] Comment on above: Order Comment: No: D o not add to previous draw Performed By: #### 1 0070, 29505, 12166, 18979 #### [facility] [address] [place] [address], [facility] POC GLUCOSE LABon 07-27-2021 Glucose [Mass/Vol] 260 mg/dL High 70-100 [facility] Comment on above: Performed By: #### 8 5499 #### [facility] [address] [place] [address], [facility] Glucose [Mass/Vol] 225 mg/dL High 70-100 [facility] Comment on above: Performed By: #### 1 0070, 38123, 86958, 73203 #### [facility] [address] [place] [address], [facility] PROTHROMBIN TIMEon 1 INR Coag (PPP) [Relative time] 1.22 {INR} High 0.91-1.16 [facility] Comment on above: Order Comment: No: D o not add to previous draw Result Comment: ACCC P RECOMMENDED INR FOR WARFARIN THERAPY -------- ------- CONDITION INR PROPHYLAXIS OF VENOUS THROMBOSIS 2-3 (HIGH-RISK SURGERY) TREATMENT OF VENOUS THROMBOSIS 2-3 TREATMENT OF PULMONARY EMBOLISM 2-3 PREVENTION OF SYSTEMIC EMBOLISM: 2-3 ACUTE MYOCARDIAL INFARCTION TISSUE HEART VALVES VALVULAR HEART DISEASE ATRIAL FIBRILLATION RECURRENT SYSTEMIC EMBOLISM MECHANICAL HEART VALVE 2.5-3.5 FROM: ORAL ANTICOAGULANTS. MECHANISM OF ACTION, CLINICAL EFFECTIVENESS, AND OPTIMAL THERAPEUTIC RANGE. CHEST 1995;108:[id number]-[id number]. Performed By: #### 1 0070, 98079, 77344, 10302 #### [facility] [address] [place] [address], [facility] PT Coag (PPP) [Time] 15.4 s High 12.3-14.8 [facility] Comment on above: Order Comment: No: D o not add to previous draw Result Comment: ALL RESULTS MUST BE INTERPRETED WITH RESPECT TO BLOOD DRAWING ARTIFACT OR DILUTION ERROR OF ANTICOAGULANT AT THE TIME OF SAMPLING. Performed By: #### 1 0070, 82760, 50908, 33856 #### [facility] [address] BASIC METABOLIC PANELon 10-2 Calcium [Mass/Vol] 8.5 mg/dL Low 8.6-10.3 [facility] Comment on above: Order Comment: No: D o not add to previous draw Performed By: #### 8 5499 #### [facility] [address] [place] [address], [facility] Chloride [Moles/Vol] 108 mmol/L High 98-107 [facility] Comment on above: Order Comment: No: D o not add to previous draw Performed By: #### 8 5499 #### [facility] [address] [place] [address], [place] CO2 [Moles/Vol] 24 mmol/L Normal 21-31 [facility] Comment on above: Order Comment: No: D o not add to previous draw Performed By: #### 8 5499 #### [facility] [address] [place] [address], [facility] Creatinine [Mass/Vol] 1.23 mg/dL Normal 0.70-1.30 [facility] Comment on above: Order Comment: No: D o not add to previous draw Performed By: #### 8 5499 #### [facility] [address] [place] [address], [place] eGFR- non- 60 ml/min/1.73sq m Abnormal >60 [facility] Comment on above: Order Comment: No: D o not add to previous draw Performed By: #### 8 5499 #### [facility] [address] [place] [address], [place] GFR/1.73 sq M.predicted among blacks MDRD (S/P/Bld) [Vol rate/Area] mL/min/{1.73_m2} Normal >60 [facility] Comment on above: Order Comment: No: D o not add to previous draw Performed By: #### 8 5499 #### [facility] [address] [place] [address], [place] Glucose [Mass/Vol] 141 mg/dL High 70-100 [facility] Comment on above: Order Comment: No: D o not add to previous draw Performed By: #### 8 5499 #### [facility] [address] [place] [address], [place] Potassium [Moles/Vol] 3.5 mmol/L Normal 3.5-5.1 [facility] Comment on above: Order Comment: No: D o not add to previous draw Performed By: #### 8 5499 #### [facility] [address] [place] [address], [place] Sodium [Moles/Vol] 139 mmol/L Normal 136-145 [facility] Comment on above: Order Comment: No: D o not add to previous draw Performed By: #### 8 5499 #### [facility] [address] [place] [address], [place] Urea nitrogen [Mass/Vol] 18 mg/dL Normal 7-25 [facility] Comment on above: Order Comment: No: D o not add to previous draw Performed By: #### 8 5499 #### [facility] [address] [place] [address], [facility] CBC COMPLETE BLOOD COUNTon Erythrocyte distribution width (RBC) [Ratio] 13.2 % Normal 11.5-15.0 [facility] Comment on above: Order Comment: No: D o not add to previous draw Performed By: #### 1 0070, 84332, 56561, 21171 #### [facility] [address] [place] [address], [facility] Hematocrit (Bld) [Volume fraction] 42.7 % Normal 39.0-50.0 [facility] Comment on above: Order Comment: No: D o not add to previous draw Performed By: #### 1 0070, 91319, 79612, 97189 #### [facility] [address] [place] [address], [facility] Hemoglobin (Bld) [Mass/Vol] 14.5 g/dL Normal 13.0-17.0 [facility] Comment on above: Order Comment: No: D o not add to previous draw Performed By: #### 1 0070, 18179, 94385, 26594 #### [facility] [address] [place] [address], [facility] MCH (RBC) [Entitic mass] 32.0 pg Normal 27.0-33.0 [facility] Comment on above: Order Comment: No: D o not add to previous draw Performed By: #### 1 0070, 98984, 48361, 96013 #### [facility] [address] [place] [id number], [facility] MCHC (RBC) [Mass/Vol] 34.0 g/dL Normal 32.0-35.0 [facility] Comment on above: Order Comment: No: D o not add to previous draw Performed By: #### 1 0070, 31551, 13276, 88631 #### [facility] [address] [place] [id number], [facility] MCV (RBC) [Entitic vol] 94.3 fL Normal 82.0-98.0 [facility] Comment on above: Order Comment: No: D o not add to previous draw Performed By: #### 1 0070, 01355, 51195, 34831 #### [facility] [address] [place] [address], [facility] Nucleated RBC/100 WBC (Bld) [Ratio] 0 % Normal 0-0 [facility] Comment on above: Order Comment: No: D o not add to previous draw Performed By: #### 1 0070, 93942, 12519, 77553 #### [facility] [address] [place] [address], [facility] PLAT CNT 179 10*3/uL Normal 150-400 [facility] Comment on above: Order Comment: No: D o not add to previous draw Performed By: #### 1 0070, 86712, 39770, 20290 #### [facility] [address] [place] [address], [facility] RBC (Bld) [#/Vol] 4.53 10*6/uL Normal 4.20-5.70 [facility] Comment on above: Order Comment: No: D o not add to previous draw Performed By: #### 1 0070, 03633, 19874, 96929 #### [facility] [address] [place] [id number], [place] WBC (Bld) [#/Vol] 7.86 10*3/uL Normal 4.00-10.60 [facility] Comment on above: Order Comment: No: D o not add to previous draw Performed By: #### 1 0070, 41809, 21081, 08284 #### [facility] [address] [place] [id number], [facility] LIVER BATTERYon 07-26-2021 Albumin [Mass/Vol] 3.2 g/dL Low 3.5-5.7 [facility] Comment on above: Order Comment: No: D o not add to previous draw Performed By: #### 0 0071, 30444 #### [facility] [address] [place] [address], [place] ALKALINE PHOSPH 114 IU/L High 34-104 [facility] Comment on above: Order Comment: No: D o not add to previous draw Performed By: #### 0 0071, 43523 #### [facility] [address] [place] [address], [place] ALT [Catalytic activity/Vol] 37 U/L Normal 7-52 [facility] Comment on above: Order Comment: No: D o not add to previous draw Performed By: #### 0 0071, 95534 #### [facility] [address] [place] [address], [place] AST [Catalytic activity/Vol] 28 U/L Normal 13-39 [facility] Comment on above: Order Comment: No: D o not add to previous draw Performed By: #### 0 0071, 07148 #### [facility] [address] [place] [address], [place] Bilirubin [Mass/Vol] 0.6 mg/dL Normal 0.3-1.0 [facility] Comment on above: Order Comment: No: D o not add to previous draw Performed By: #### 0 0071, 20677 #### [facility] [address] [place] [address], [place] Bilirubin.direct [Mass/Vol] 0.1 mg/dL Normal 0.0-0.2 [facility] Comment on above: Order Comment: No: D o not add to previous draw Performed By: #### 0 0071, 46453 #### [facility] [address] [place] [address], [place] Protein [Mass/Vol] 6.3 g/dL Normal 6.0-8.[address] Comment on above: Order Comment: No: D o not add to previous draw Performed By: #### 0 0071, 91100 #### [facility] [address] [place] [address], [facility] Operative Reporton Operative Report MR#: [id number] I [facility] Pt. Name: Andry Pierre Room #: [id number] Discharge Date: Birthdate: 1960 OPERATIVE REPORT DATE [...] Olivier M.D. Date Trans: 07/26/2021 04:31 P/ [id number] cc: Say Mccormick M.D. [address] [id number] Normal [facility] POC GLUCOSE LABon 07-26-2021 Glucose [Mass/Vol] 155 mg/dL High 70-100 [facility] Comment on above: Performed By: #### 1 0070, 57434, 29959, 32542 #### [facility] [address] [facility] [address], [place] Glucose [Mass/Vol] 149 mg/dL High 70-100 [facility] Comment on above: Performed By: #### 8 5499 #### [facility] [address] [facility] [place] [address], [place] Glucose [Mass/Vol] 123 mg/dL High 70-100 [facility] Comment on above: Performed By: #### 1 0070, 14606, 06218, 89326 #### [facility] [address] [place] [address], [facility] Glucose [Mass/Vol] 126 mg/dL High 70-100 [facility] Comment on above: Performed By: #### 8 5499 #### [facility] [address] [place] [address], [facility] PROTHROMBIN TIMEon 10--202 1 INR Coag (PPP) [Relative time] 1.20 {INR} High 0.91-1.16 [facility] Comment on above: Order Comment: No: D o not add to previous draw Result Comment: ACCC P RECOMMENDED INR FOR WARFARIN THERAPY -------- ------- CONDITION INR PROPHYLAXIS OF VENOUS THROMBOSIS 2-3 (HIGH-RISK SURGERY) TREATMENT OF VENOUS THROMBOSIS 2-3 TREATMENT OF PULMONARY EMBOLISM 2-3 PREVENTION OF SYSTEMIC EMBOLISM: 2-3 ACUTE MYOCARDIAL INFARCTION TISSUE HEART VALVES VALVULAR HEART DISEASE ATRIAL FIBRILLATION RECURRENT SYSTEMIC EMBOLISM MECHANICAL HEART VALVE 2.5-3.5 FROM: ORAL ANTICOAGULANTS. MECHANISM OF ACTION, CLINICAL EFFECTIVENESS, AND OPTIMAL THERAPEUTIC RANGE. CHEST 1995;108:231S-246S. Performed By: #### 1 0070, 36616, 95188, 50439 #### [facility] [address] [place] [address], [facility] PT Coag (PPP) [Time] 15.2 s High 12.3-14.8 [facility] Comment on above: Order Comment: No: D o not add to previous draw Result Comment: ALL RESULTS MUST BE INTERPRETED WITH RESPECT TO BLOOD DRAWING ARTIFACT OR DILUTION ERROR OF ANTICOAGULANT AT THE TIME OF SAMPLING. Performed By: #### 1 0070, 59050, 02898, 85916 #### [facility] [address] [place] [address], [facility] APTTon 07-25-2021 aPTT Coag (Bld) [Time] 29.3 s Normal 25.0-35.0 [facility] Comment on above: Order Comment: No: [...] THIS PURPOSE. Performed By: #### 1 0070, 21561, 34229, 71442 #### [facility] [address] [place] [address], [facility] aPTT Coag (Bld) [Time] 28.7 s Normal 25.0-35.0 [facility] Comment on above: Order Comment: No: D [...] THIS PURPOSE. Performed By: #### 1 0070, 06982, 60399, 55541 #### [facility] [address] [place] [address], [facility] BASIC METABOLIC PANELon 10-2 Calcium [Mass/Vol] 8.3 mg/dL Low 8.6-10.3 [facility] Comment on above: Order Comment: No: D o not add to previous draw Performed By: #### 1 0070, 12433, 43263, 11875 #### [facility] [address] [place] [id number], [place] Chloride [Moles/Vol] 111 mmol/L High 98-107 [facility] Comment on above: Order Comment: No: D o not add to previous draw Performed By: #### 1 0070, 56394, 96550, 75823 #### [facility] [address] [place] [address], [place] CO2 [Moles/Vol] 26 mmol/L Normal 21-31 [facility] Comment on above: Order Comment: No: D o not add to previous draw Performed By: #### 1 0070, 25684, 08335, 92574 #### [facility] [address] [place] [address], [facility] Creatinine [Mass/Vol] 1.25 mg/dL Normal 0.70-1.30 [facility] Comment on above: Order Comment: No: D o not add to previous draw Performed By: #### 1 0070, 19768, 24501, 23760 #### [facility] [address] [place] [address], [facility] eGFR- non- 59 ml/min/1.73sq m Abnormal >60 [facility] Comment on above: Order Comment: No: D o not add to previous draw Performed By: #### 1 0070, 93600, 93893, 93360 #### [facility] [address] [place] [id number], [facility] GFR/1.73 sq M.predicted among blacks MDRD (S/P/Bld) [Vol rate/Area] mL/min/{1.73_m2} Normal >60 [facility] Comment on above: Order Comment: No: D o not add to previous draw Performed By: #### 1 0070, 21954, 45209, 66896 #### [facility] [address] [place] [address], [place] Glucose [Mass/Vol] 107 mg/dL High 70-100 [facility] Comment on above: Order Comment: No: D o not add to previous draw Performed By: #### 1 0070, 21073, 20313, 85244 #### [facility] [address] [place] [id number], [facility] Potassium [Moles/Vol] 3.6 mmol/L Normal 3.5-5.1 [facility] Comment on above: Order Comment: No: D o not add to previous draw Performed By: #### 1 0070, 54378, 20734, 86693 #### [facility] [address] [place] [address], [place] Sodium [Moles/Vol] 143 mmol/L Normal 136-145 [facility] Comment on above: Order Comment: No: D o not add to previous draw Performed By: #### 1 0070, 15240, 29118, 84456 #### [facility] [address] [place] [id number], [facility] Urea nitrogen [Mass/Vol] 22 mg/dL Normal 7-25 [facility] Comment on above: Order Comment: No: D o not add to previous draw Performed By: #### 1 0070, 01760, 07491, 05224 #### [facility] [address] [place] [id number], [facility] CBC COMPLETE BLOOD COUNTon Erythrocyte distribution width (RBC) [Ratio] 13.3 % Normal 11.5-15.0 [facility] Comment on above: Order Comment: No: D o not add to previous draw Performed By: #### 1 0070, 44903, 75698, 93827 #### [facility] [address] [place] [address], [place] Hematocrit (Bld) [Volume fraction] 46.9 % Normal 39.0-50.0 [facility] Comment on above: Order Comment: No: D o not add to previous draw Performed By: #### 1 0070, 16043, 20874, 22458 #### [facility] [address] Hemoglobin (Bld) [Mass/Vol] 15.4 g/dL Normal 13.0-17.0 [facility] Comment on above: Order Comment: No: D o not add to previous draw Performed By: #### 1 0070, 01476, 74030, 51980 #### [facility] [address] [place] [address], [facility] MCH (RBC) [Entitic mass] 31.3 pg Normal 27.0-33.0 [facility] Comment on above: Order Comment: No: D o not add to previous draw Performed By: #### 1 0070, 81608, 14502, 29694 #### [facility] [address] [facility] MCHC (RBC) [Mass/Vol] 32.8 g/dL Normal 32.0-35.0 [facility] Comment on above: Order Comment: No: D o not add to previous draw Performed By: #### 1 0070, 39605, 84330, 85276 #### [facility] [address] [facility] [address], [facility] MCV (RBC) [Entitic vol] 95.3 fL Normal 82.0-98.0 [facility] Comment on above: Order Comment: No: D o not add to previous draw Performed By: #### 1 0070, 62388, 31430, 19184 #### [facility] [address] [facility]. [address] Nucleated RBC/100 WBC (Bld) [Ratio] 0 % Normal 0-0 [facility] Comment on above: Order Comment: No: D o not add to previous draw Performed By: #### 1 0070, 47289, 90147, 50106 #### [facility] [address] [place] [address], [facility] PLAT CNT 183 10*3/uL Normal 150-400 [facility] Comment on above: Order Comment: No: D o not add to previous draw Performed By: #### 1 0070, 61988, 69613, 83903 #### [facility] [address] [place] [address], [facility] RBC (Bld) [#/Vol] 4.92 10*6/uL Normal 4.20-5.70 [facility] Comment on above: Order Comment: No: D o not add to previous draw Performed By: #### 1 0070, 43728, 59337, 92986 #### [facility] [address] [place] [address], [facility] WBC (Bld) [#/Vol] 9.70 10*3/uL Normal 4.00-10.60 [facility] Comment on above: Order Comment: No: D o not add to previous draw Performed By: #### 1 0070, 86186, 13245, 33315 #### [facility] [address] LIPASE BLOODon 07-25-2021 LIPASE 34 Units/L Normal 11-82 [facility] Comment on above: Order Comment: No: D o not add to previous draw Performed By: #### 1 0070, 85817, 63669, 46609 #### [facility] [address] [facility] [place] [address], [facility] LIVER BATTERYon 07-25-2021 Albumin [Mass/Vol] 3.0 g/dL Low 3.5-5.7 [facility] Comment on above: Order Comment: No: D o not add to previous draw Performed By: #### 1 0070, 76824, 61527, 69886 #### [facility] [address] [place] [address], [facility] ALKALINE PHOSPH 113 IU/L High 34-104 [facility] Comment on above: Order Comment: No: D o not add to previous draw Performed By: #### 1 0070, 02767, 51141, 73212 #### [facility] [address] [place] [address], [place] ALT [Catalytic activity/Vol] 37 U/L Normal 7-52 [facility] Comment on above: Order Comment: No: D o not add to previous draw Performed By: #### 1 0070, 59546, 77766, 74111 #### [facility] [address] [place] [address], [place] AST [Catalytic activity/Vol] 36 U/L Normal 13-39 [facility] Comment on above: Order Comment: No: D o not add to previous draw Performed By: #### 1 0070, 30446, 13785, 78977 #### [facility] [address] [place] [address], [place] Bilirubin [Mass/Vol] 0.6 mg/dL Normal 0.3-1.0 [facility] Comment on above: Order Comment: No: D o not add to previous draw Performed By: #### 1 0070, 19776, 19259, 56827 #### [facility] [address] [place] [address], [place] Bilirubin.direct [Mass/Vol] 0.1 mg/dL Normal 0.0-0.2 [facility] Comment on above: Order Comment: No: D o not add to previous draw Performed By: #### 1 0070, 06853, 27747, 70574 #### [facility] [address] [place] [address], [place] Protein [Mass/Vol] 5.3 g/dL Low 6.0-8.3 [facility] Comment on above: Order Comment: No: D o not add to previous draw Performed By: #### 1 0070, 07150, 60877, 33990 #### [facility] [address] [place] [address], [place] POC GLUCOSE LABon 07-25-2021 Glucose [Mass/Vol] 388 mg/dL High 70-100 [facility] Comment on above: Performed By: #### 1 0070, 22693, 47043, 76871 #### [facility] [address] [place] [address], [facility] Glucose [Mass/Vol] 173 mg/dL High 70-100 [facility] Comment on above: Performed By: #### 8 5499 #### [facility] [address] [facility] [place] [address], [facility] Glucose [Mass/Vol] 178 mg/dL High 70-100 [facility] Comment on above: Performed By: #### 8 5499 #### [facility] [address] [facility] [place] [address], [facility] Glucose [Mass/Vol] 106 mg/dL High 70-100 [facility] Comment on above: Performed By: #### 1 0070, 32583, 27728, 08449 #### [facility] [address] [place] [address], [facility] PROTHROMBIN TIMEon 10-20-202 1 INR Coag (PPP) [Relative time] 1.30 {INR} High 0.91-1.16 [facility] Comment on above: Order Comment: No: D o not add to previous draw Result Comment: ACCC P RECOMMENDED INR FOR WARFARIN THERAPY -------- ------- CONDITION INR PROPHYLAXIS OF VENOUS THROMBOSIS 2-3 (HIGH-RISK SURGERY) TREATMENT OF VENOUS THROMBOSIS 2-3 TREATMENT OF PULMONARY EMBOLISM 2-3 PREVENTION OF SYSTEMIC EMBOLISM: 2-3 ACUTE MYOCARDIAL INFARCTION TISSUE HEART VALVES VALVULAR HEART DISEASE ATRIAL FIBRILLATION RECURRENT SYSTEMIC EMBOLISM MECHANICAL HEART VALVE 2.5-3.5 FROM: ORAL ANTICOAGULANTS. MECHANISM OF ACTION, CLINICAL EFFECTIVENESS, AND OPTIMAL THERAPEUTIC RANGE. CHEST 1995;108:231S-246S. Performed By: #### 1 0070, 97882, 03277, 97709 #### [facility] [address] [place] [address], [facility] PT Coag (PPP) [Time] 16.2 s High 12.3-14.8 [facility] Comment on above: Order Comment: No: D o not add to previous draw Result Comment: ALL RESULTS MUST BE INTERPRETED WITH RESPECT TO BLOOD DRAWING ARTIFACT OR DILUTION ERROR OF ANTICOAGULANT AT THE TIME OF SAMPLING. Performed By: #### 1 0070, 39400, 97524, 28706 #### [facility] [address] [place] [address], [facility] UFH HEPARIN ASSAYon 07-25-20 UNFRACTIONATED HEPARIN <0.10 Critically low 0.30-0.70 [facility] Comment on above: Result Comment: Resu lts called. [place] [address], 25-Jul-2021. Patient is not on anything that would raise the uFH value per nurse Caitlin. Rivaroxaban and Apixaban will interfere with the anti Xa assay used to monitor UFH and LMWH. Performed By: #### 1 0070, 78524, 74093, 21394 #### [facility] [address] [place] [address], [facility] UNFRACTIONATED HEPARIN <0.10 Critically low 0.30-0.70 [facility] Comment on above: Result Comment: Resu lt checked and called. Accurately read back by Caitlin Koch RN at 1024 Rivaroxaban and Apixaban will interfere with the anti Xa assay used to monitor UFH and LMWH. Performed By: #### 1 0070, 06191, 36059, 68495 #### [facility] [address] [place] [address], [facility] BASIC METABOLIC PANELon 10-1 9-2021 Calcium [Mass/Vol] 8.7 mg/dL Normal 8.6-10.3 [facility] Comment on above: Order Comment: No: D o not add to previous draw Performed By: #### 0 0071, 51878 #### [facility] [address] [place] [address], [place] Chloride [Moles/Vol] 105 mmol/L Normal 98-107 [facility] Comment on above: Order Comment: No: D o not add to previous draw Performed By: #### 0 0071, 13597 #### [facility] [address] [place] [address], [place] CO2 [Moles/Vol] 30 mmol/L Normal 21-31 [facility] Comment on above: Order Comment: No: D o not add to previous draw Performed By: #### 0 0071, 28633 #### [facility] [address] [place] [address], [place] Creatinine [Mass/Vol] 1.52 mg/dL High 0.70-1.30 [facility] Comment on above: Order Comment: No: D o not add to previous draw Performed By: #### 0 0071, 98380 #### [facility] [address] [place] [address], [place] eGFR- 57 ml/min/1.73sq m Abnormal >60 [facility] Comment on above: Order Comment: No: D o not add to previous draw Performed By: #### 0 0071, 81798 #### [facility] [address] [place] [address], [place] eGFR- non- 47 ml/min/1.73sq m Abnormal >60 [facility] Comment on above: Order Comment: No: D o not add to previous draw Performed By: #### 0 0071, 53046 #### [facility] [address] [place] [address], [place] Glucose [Mass/Vol] 331 mg/dL High 70-100 [facility] Comment on above: Order Comment: No: D o not add to previous draw Performed By: #### 0 0071, 93487 #### [facility] [address] [place] [id number], [facility] Potassium [Moles/Vol] 4.3 mmol/L Normal 3.5-5.1 [facility] Comment on above: Order Comment: No: D o not add to previous draw Performed By: #### 0 0071, 28262 #### [facility] [address] [place] [address], [facility] Sodium [Moles/Vol] 139 mmol/L Normal 136-145 [facility] Comment on above: Order Comment: No: D o not add to previous draw Performed By: #### 0 0071, 73586 #### [facility] [address] [place] [id number], [facility] Urea nitrogen [Mass/Vol] 26 mg/dL High 7-25 [facility] Comment on above: Order Comment: No: D o not add to previous draw Performed By: #### 0 0071, 74454 #### [facility] [address] [place] [id number], [facility] CBC COMPLETE BLOOD COUNTon Erythrocyte distribution width (RBC) [Ratio] 13.2 % Normal 11.5-15.0 [facility] Comment on above: Order Comment: No: D o not add to previous draw Performed By: #### 1 0070, 78864, 90225, 62865 #### [facility] [address] [place] [address], [facility] Hematocrit (Bld) [Volume fraction] 42.9 % Normal 39.0-50.0 [facility] Comment on above: Order Comment: No: D o not add to previous draw Performed By: #### 1 0070, 04100, 82331, 18611 #### [facility] [address] [place] [address], [facility] Hemoglobin (Bld) [Mass/Vol] 13.7 g/dL Normal 13.0-17.0 [facility] Comment on above: Order Comment: No: D o not add to previous draw Performed By: #### 1 0070, [id number] #### [facility] [address] [place] [id number], [facility] MCH (RBC) [Entitic mass] 30.9 pg Normal 27.0-33.0 [facility] Comment on above: Order Comment: No: D o not add to previous draw Performed By: #### 1 0070, [id number], [id number], [id number] #### [facility] [address] [facility] [place] [address], [facility] MCHC (RBC) [Mass/Vol] 31.9 g/dL Low 32.0-35.0 [facility] Comment on above: Order Comment: No: D o not add to previous draw Performed By: #### 1 0070, 28142, 26227, 40012 #### [facility] [address] [facility] [place] [address], [facility] MCV (RBC) [Entitic vol] 96.6 fL Normal 82.0-98.0 [facility] Comment on above: Order Comment: No: D o not add to previous draw Performed By: #### 1 0070, 78533, 27917, 03695 #### [facility] [address] [facility] [place] [address], [facility] Nucleated RBC/100 WBC (Bld) [Ratio] 0 % Normal 0-0 [facility] Comment on above: Order Comment: No: D o not add to previous draw Performed By: #### 1 0070, 12851, 09832, 30091 #### [facility] [address] [place] [address], [facility] PLAT CNT 184 10*3/uL Normal 150-400 [facility] Comment on above: Order Comment: No: D o not add to previous draw Performed By: #### 1 0070, 32363, 68756, 34961 #### [facility] [address] [place] [address], [facility] RBC (Bld) [#/Vol] 4.44 10*6/uL Normal 4.20-5.70 [facility] Comment on above: Order Comment: No: D o not add to previous draw Performed By: #### 1 0070, 83278, 06718, 91566 #### [facility] [address] [place] [address], [facility] WBC (Bld) [#/Vol] 8.42 10*3/uL Normal 4.00-10.60 [facility] Comment on above: Order Comment: No: D o not add to previous draw Performed By: #### 1 0070, 91984, 87708, 69216 #### [address] [address], [facility] ERCPon 07-24-2021 ERCP [facility] Department of Radiology [address] [place] [id number] Patient Name: ANDRY PIERRE : 1960 Sex: M Age: Race: White Pt. Location: [id number] Patient Status: I Ordered Date: 07/24/2021 7:00:00 [...] details. Electronically signed: Khoa Chahal. Transcribed by: [email or web address], User Resident: Electronically Signed by: KHOA CHAHAL @ 07/25/2021 08:48 AM Normal [facility] Comment on above: Order Comment: ERCP Endoscopy Reporton Endoscopy Report MR#: [id number] [facility] Pt. Name: Andry Pierre Surgery Date: 07/24/2021 Room #: [id number] Date of : 1960 PROCEDURE NOTE ATTENDING: Amy Remy M.D. ASSOCIATE SOFTWARE DEVELOPMENT ENGINEER: Cyrus Decker MD PROCEDURE: ERCP with biliary [...] Decker MD Date Trans: 07/24/2021 09:24 P/mmo [id number] cc: Say Mccormick M.D. [address] [place] [address] Normal [facility] LIVER BATTERYon 07-24-2021 Albumin [Mass/Vol] 3.3 g/dL Low 3.5-5.7 [facility] Comment on above: Order Comment: No: D o not add to previous draw Performed By: #### 0 0071, 90252 #### [facility] [address] [place] [address], [place] ALKALINE PHOSPH 106 IU/L High 34-104 [facility] Comment on above: Order Comment: No: D o not add to previous draw Performed By: #### 0 0071, 25982 #### [facility] [address] [place] [address], [place] ALT [Catalytic activity/Vol] 26 U/L Normal 7-52 [facility] Comment on above: Order Comment: No: D o not add to previous draw Performed By: #### 0 0071, 78219 #### [facility] [address] [place] [address], [place] AST [Catalytic activity/Vol] 17 U/L Normal 13-39 [facility] Comment on above: Order Comment: No: D o not add to previous draw Performed By: #### 0 0071, 12968 #### [facility] [address] [place] [address], [place] Bilirubin [Mass/Vol] 0.3 mg/dL Normal 0.3-1.0 [facility] Comment on above: Order Comment: No: D o not add to previous draw Performed By: #### 0 0071, 50490 #### [facility] [address] [place] [address], [place] Bilirubin.direct [Mass/Vol] 0.0 mg/dL Normal 0.0-0.2 [facility] Comment on above: Order Comment: No: D o not add to previous draw Performed By: #### 0 0071, 74419 #### [facility] [address] [place] [address], [place] Protein [Mass/Vol] 6.1 g/dL Normal 6.0-8.3 [facility] Comment on above: Order Comment: No: D o not add to previous draw Performed By: #### 0 0071, 84477 #### [facility] [address] [place] [address], [place] POC GLUCOSE LABon 07-24-2021 Glucose [Mass/Vol] 89 mg/dL Normal 70-100 [facility] Comment on above: Performed By: #### 8 5499 #### [facility] [address] [place] [address], [place] Glucose [Mass/Vol] 89 mg/dL Normal 70-100 [facility] Comment on above: Performed By: #### 1 0070, 90659, 62900, 62837 #### [facility] [address] [place] [address], [place] Glucose [Mass/Vol] 166 mg/dL High 70-100 [facility] Comment on above: Performed By: #### 8 5499 #### [facility] [address] [place] [address], [place] Glucose [Mass/Vol] 391 mg/dL High 70-100 [facility] Comment on above: Performed By: #### 8 5499 #### [facility] [address] [place] [address], [place] POC SARS COV2 ANTIGEN NEGATI VEon 07-24-2021 POC SARS COV2 ANTIGEN NEG Negative Normal NEGATIVE [facility] Comment on above: Result Comment: Nega tive [...] signs and symptoms consistent with COVID-19. The [employer] COVID-19 Ag Card is a lateral flow [...] Accreditation. Performed By: #### 8 5499 #### [address] PROTHROMBIN TIMEon 1 INR Coag (PPP) [Relative time] 1.53 {INR} High 0.91-1.16 [facility] Comment on above: Order Comment: No: D o not add to previous draw Result Comment: [facility] P RECOMMENDED INR FOR WARFARIN THERAPY -------- ------- CONDITION INR PROPHYLAXIS OF VENOUS THROMBOSIS 2-3 (HIGH-RISK SURGERY) TREATMENT OF VENOUS THROMBOSIS 2-3 TREATMENT OF PULMONARY EMBOLISM 2-3 PREVENTION OF SYSTEMIC EMBOLISM: 2-3 ACUTE MYOCARDIAL INFARCTION TISSUE HEART VALVES VALVULAR HEART DISEASE ATRIAL FIBRILLATION RECURRENT SYSTEMIC EMBOLISM MECHANICAL HEART VALVE 2.5-3.5 FROM: ORAL ANTICOAGULANTS. MECHANISM OF ACTION, CLINICAL EFFECTIVENESS, AND OPTIMAL THERAPEUTIC RANGE. CHEST 1995;108:231S-246S. Performed By: #### 1 0070, 08029, 98193, 45929 #### [facility] [address] PT Coag (PPP) [Time] 18.3 s High 12.3-14.8 [facility] Comment on above: Order Comment: No: D o not add to previous draw Result Comment: ALL RESULTS MUST BE INTERPRETED WITH RESPECT TO BLOOD DRAWING ARTIFACT OR DILUTION ERROR OF ANTICOAGULANT AT THE TIME OF SAMPLING. Performed By: #### 1 0070, 36961, 03497, 98538 #### [facility] [address] [facility]. [address] COMP METABOLIC PANELon 07-23 Albumin [Mass/Vol] 3.5 g/dL Normal 3.5-5.7 [facility] Comment on above: Order Comment: No: D o not add to previous draw Performed By: #### 8 5589 #### [facility] [address] [facility] [place] [address], [facility] ALKALINE PHOSPH 122 IU/L High 34-104 [facility] Comment on above: Order Comment: No: D o not add to previous draw Performed By: #### 8 8279 #### [facility] [address] [facility] [place] [address], [facility] ALT [Catalytic activity/Vol] 32 U/L Normal 7-52 [facility] Comment on above: Order Comment: No: D o not add to previous draw Performed By: #### 8 1872 #### [facility] [address] [facility] [place] [address], [facility] AST [Catalytic activity/Vol] 22 U/L Normal 13-39 [facility] Comment on above: Order Comment: No: D o not add to previous draw Performed By: #### 8 8039 #### [facility] [address] [place] [address], [place] Bilirubin [Mass/Vol] 0.4 mg/dL Normal 0.3-1.0 [facility] Comment on above: Order Comment: No: D o not add to previous draw Performed By: #### 8 5499 #### [facility] [address] [place] [address], [place] Calcium [Mass/Vol] 8.5 mg/dL Low 8.6-10.3 [facility] Comment on above: Order Comment: No: D o not add to previous draw Performed By: #### 8 5499 #### [facility] [address] [place] [address], [place] Chloride [Moles/Vol] 110 mmol/L High 98-107 [facility] Comment on above: Order Comment: No: D o not add to previous draw Performed By: #### 8 5499 #### [facility] [address] [place] [address], [place] CO2 [Moles/Vol] 23 mmol/L Normal 21-31 [facility] Comment on above: Order Comment: No: D o not add to previous draw Performed By: #### 8 5499 #### [facility] [address] [place] [address], [place] Creatinine [Mass/Vol] 1.33 mg/dL High 0.70-1.30 [facility] Comment on above: Order Comment: No: D o not add to previous draw Performed By: #### 8 5499 #### [facility] [address] [place] [address], [place] eGFR- non- 55 ml/min/1.73sq m Abnormal >60 [facility] Comment on above: Order Comment: No: D o not add to previous draw Performed By: #### 8 5499 #### [facility] [address] [place] [address], [place] GFR/1.73 sq M.predicted among blacks MDRD (S/P/Bld) [Vol rate/Area] mL/min/{1.73_m2} Normal >60 [facility] Comment on above: Order Comment: No: D o not add to previous draw Performed By: #### 8 5499 #### [facility] [address] [place] [address], [place] Glucose [Mass/Vol] 198 mg/dL High 70-100 [facility] Comment on above: Order Comment: No: D o not add to previous draw Performed By: #### 8 5499 #### [facility] [address] [place] [address], [place] Potassium [Moles/Vol] 3.5 mmol/L Normal 3.5-5.1 [facility] Comment on above: Order Comment: No: D o not add to previous draw Performed By: #### 8 5499 #### [facility] [address] [place] [address], [place] Protein [Mass/Vol] 6.3 g/dL Normal 6.0-8.3 [facility] Comment on above: Order Comment: No: D o not add to previous draw Performed By: #### 8 5499 #### [facility] [address] [place] [address], [place] Sodium [Moles/Vol] 142 mmol/L Normal 136-145 [facility] Comment on above: Order Comment: No: D o not add to previous draw Performed By: #### 8 5499 #### [facility] [address] [place] [address], [place] Urea nitrogen [Mass/Vol] 25 mg/dL Normal 7-25 [facility] Comment on above: Order Comment: No: D o not add to previous draw Performed By: #### 8 5499 #### [facility] [address] [place] [address], [place] POC GLUCOSE LABon 07-23-2021 Glucose [Mass/Vol] 325 mg/dL High 70-100 [facility] Comment on above: Performed By: #### 8 5499 #### [facility] [address] [place] [address], [place] Glucose [Mass/Vol] 290 mg/dL High 70-100 [facility] Comment on above: Performed By: #### 1 0070, 04914, 42279, 47594 #### [facility] [address] [place] [address], [place] Glucose [Mass/Vol] 253 mg/dL High 70-100 [facility] Comment on above: Performed By: #### 1 0070, 01975, 32570, 49675 #### [facility] [address] [place] [address], [place] Glucose [Mass/Vol] 211 mg/dL High 70-100 [facility] Comment on above: Performed By: #### 8 5499 #### [facility] [address] [place] [address], [facility] PROTHROMBIN TIMEon INR Coag (PPP) [Relative time] 1.92 {INR} High 0.91-1.16 [facility] Comment on above: Order Comment: Unkno wn Result Comment: [facility] P RECOMMENDED INR FOR WARFARIN THERAPY -------- ------- CONDITION INR PROPHYLAXIS OF VENOUS THROMBOSIS 2-3 (HIGH-RISK SURGERY) TREATMENT OF VENOUS THROMBOSIS 2-3 TREATMENT OF PULMONARY EMBOLISM 2-3 PREVENTION OF SYSTEMIC EMBOLISM: 2-3 ACUTE MYOCARDIAL INFARCTION TISSUE HEART VALVES VALVULAR HEART DISEASE ATRIAL FIBRILLATION RECURRENT SYSTEMIC EMBOLISM MECHANICAL HEART VALVE 2.5-3.5 FROM: ORAL ANTICOAGULANTS. MECHANISM OF ACTION, CLINICAL EFFECTIVENESS, AND OPTIMAL THERAPEUTIC RANGE. CHEST 1995;108:231S-246S. Performed By: #### 8 5499 #### [facility] [address] [place] [address], [facility] PT Coag (PPP) [Time] 21.9 s High 12.3-14.8 [facility] Comment on above: Order Comment: Unkno wn Result Comment: ALL RESULTS MUST BE INTERPRETED WITH RESPECT TO BLOOD DRAWING ARTIFACT OR DILUTION ERROR OF ANTICOAGULANT AT THE TIME OF SAMPLING. Performed By: #### 8 5499 #### [facility] [address] [facility] APTTon 07-22-2021 aPTT Coag (Bld) [Time] 37.1 s High 25.0-35.0 [facility] Comment on above: Order Comment: No: [...] THIS PURPOSE. Performed By: #### 1 0070, 40446, 72056, 68043 #### [facility] [address] [place] [address], [facility] BASIC METABOLIC PANELon 07-06 Calcium [Mass/Vol] 8.3 mg/dL Low 8.6-10.3 [facility] Comment on above: Order Comment: No: D o not add to previous draw Performed By: #### 8 5499 #### [facility] [address] [place] [address], [facility] Chloride [Moles/Vol] 109 mmol/L High 98-107 [facility] Comment on above: Order Comment: No: D o not add to previous draw Performed By: #### 8 5499 #### [facility] [address] [place] [address], [place] CO2 [Moles/Vol] 28 mmol/L Normal 21-31 [facility] Comment on above: Order Comment: No: D o not add to previous draw Performed By: #### 8 5499 #### [facility] [address] [place] [address], [place] Creatinine [Mass/Vol] 1.48 mg/dL High 0.70-1.30 [facility] Comment on above: Order Comment: No: D o not add to previous draw Performed By: #### 8 5499 #### [facility] [address] [place] [address], [place] eGFR- 59 ml/min/1.73sq m Abnormal >60 [facility] Comment on above: Order Comment: No: D o not add to previous draw Performed By: #### 8 5499 #### [facility] [address] [place] [address], [place] eGFR- non- 48 ml/min/1.73sq m Abnormal >60 [facility] Comment on above: Order Comment: No: D o not add to previous draw Performed By: #### 8 5499 #### [facility] [address] [place] [address], [place] Glucose [Mass/Vol] 216 mg/dL High 70-100 [facility] Comment on above: Order Comment: No: D o not add to previous draw Performed By: #### 8 5499 #### [facility] [address] [place] [address], [place] Potassium [Moles/Vol] 4.6 mmol/L Normal 3.5-5.1 [facility] Comment on above: Order Comment: No: D o not add to previous draw Performed By: #### 8 5499 #### [facility] [address] [place] [id number], [facility] Sodium [Moles/Vol] 141 mmol/L Normal 136-145 [facility] Comment on above: Order Comment: No: D o not add to previous draw Performed By: #### 8 5499 #### [facility] [address] [place] [id number], [facility] Urea nitrogen [Mass/Vol] 26 mg/dL High 7-25 [facility] Comment on above: Order Comment: No: D o not add to previous draw Performed By: #### 8 5499 #### [facility] [address] [place] [address], [facility] CBC COMPLETE BLOOD COUNTon Erythrocyte distribution width (RBC) [Ratio] 13.2 % Normal 11.5-15.0 [facility] Comment on above: Order Comment: No: D o not add to previous draw Performed By: #### 8 [id number] #### [facility] [address] [place] [address], [facility] Hematocrit (Bld) [Volume fraction] 45.8 % Normal 39.0-50.0 [facility] Comment on above: Order Comment: No: D o not add to previous draw Performed By: #### 8 [id number] #### [facility] [address] [place] [address], [facility] Hemoglobin (Bld) [Mass/Vol] 14.8 g/dL Normal 13.0-17.0 [facility] Comment on above: Order Comment: No: D o not add to previous draw Performed By: #### 8 5499 #### [facility] [address] [place] [id number], [facility] MCH (RBC) [Entitic mass] 31.0 pg Normal 27.0-33.0 [facility] Comment on above: Order Comment: No: D o not add to previous draw Performed By: #### 8 5499 #### [facility] [address] MCHC (RBC) [Mass/Vol] 32.3 g/dL Normal 32.0-35.0 [facility] Comment on above: Order Comment: No: D o not add to previous draw Performed By: #### 8 5499 #### [facility] [address] [place] [address], [facility] MCV (RBC) [Entitic vol] 95.8 fL Normal 82.0-98.0 [facility] Comment on above: Order Comment: No: D o not add to previous draw Performed By: #### 8 5499 #### [facility] [address] Nucleated RBC/100 WBC (Bld) [Ratio] 0 % Normal 0-0 [facility] Comment on above: Order Comment: No: D o not add to previous draw Performed By: #### 8 5499 #### [facility] [address] [facility] [place] [address], [facility] PLAT CNT 209 10*3/uL Normal 150-400 [facility] Comment on above: Order Comment: No: D o not add to previous draw Performed By: #### 8 [id number] #### [facility] [address] [place] [address], [facility] RBC (Bld) [#/Vol] 4.78 10*6/uL Normal 4.20-5.70 [facility] Comment on above: Order Comment: No: D o not add to previous draw Performed By: #### 8 5499 #### [facility] [address] [place] [address], [facility] WBC (Bld) [#/Vol] 8.89 10*3/uL Normal 4.00-10.60 [facility] Comment on above: Order Comment: No: D o not add to previous draw Performed By: #### 8 5499 #### [facility] [address] [place] [address], [facility] LIVER BATTERYon 07-22-2021 Albumin [Mass/Vol] 3.2 g/dL Low 3.5-5.7 [facility] Comment on above: Performed By: #### 8 [id number] #### [facility] [address] [place] [address], [facility] ALKALINE PHOSPH 111 IU/L High 34-104 [facility] Comment on above: Performed By: #### 8 5499 #### [facility] [address] [place] [address], [facility] ALT [Catalytic activity/Vol] 23 U/L Normal 7-52 [facility] Comment on above: Performed By: #### 8 5499 #### [facility] [address] [facility] [place] [address], [facility] AST [Catalytic activity/Vol] 17 U/L Normal 13-39 [facility] Comment on above: Performed By: #### 8 [id number] #### [facility] [address] [place] [address], [facility] Bilirubin [Mass/Vol] 0.3 mg/dL Normal 0.3-1.0 [facility] Comment on above: Performed By: #### 8 [id number] #### [facility] [address] [facility] [place] [address], [facility] Bilirubin.direct [Mass/Vol] 0.0 mg/dL Normal 0.0-0.2 [facility] Comment on above: Performed By: #### 8 5499 #### [facility] [address] [place] [address], [facility] Protein [Mass/Vol] 5.5 g/dL Low 6.0-8.3 [facility] Comment on above: Performed By: #### 8 [id number] #### [facility] [address] [place] [address], [place] MAGNESIUM BLOODon 07-22-2021 Magnesium [Mass/Vol] 2.0 mg/dL Normal 1.9-2.7 [facility] Comment on above: Order Comment: No: D o not add to previous draw Performed By: #### 8 [id number] #### [facility] [address] [place] [address], [place] PHOSPHORUS BLOODon Phosphate [Mass/Vol] 3.0 mg/dL Normal 2.5-5.0 [facility] Comment on above: Order Comment: No: D o not add to previous draw Performed By: #### 8 [id number] #### [facility] [address] [place] [address], [place] POC GLUCOSE LABon 07-22-2021 Glucose [Mass/Vol] 223 mg/dL High 70-100 [facility] Comment on above: Performed By: #### 1 0070, 93385, 47171, 42668 #### [facility] [address] [place] [address], [place] Glucose [Mass/Vol] 222 mg/dL High 70-100 [facility] Comment on above: Performed By: #### 8 [id number] #### [facility] [address] [place] [address], [place] Glucose [Mass/Vol] 245 mg/dL High 70-100 [facility] Comment on above: Performed By: #### 8 [id number] #### [facility] [address] [place] [address], [place] Glucose [Mass/Vol] 202 mg/dL High 70-100 [facility] Comment on above: Performed By: #### 1 0070, 11428, 55075, 52536 #### [facility] [address] [place] [address], [place] PROTHROMBIN TIMEon INR Coag (PPP) [Relative time] 2.27 {INR} High 0.91-1.16 [facility] Comment on above: Order Comment: No: D o not add to previous draw Result Comment: [facility] P RECOMMENDED INR FOR WARFARIN THERAPY -------- ------- CONDITION INR PROPHYLAXIS OF VENOUS THROMBOSIS 2-3 (HIGH-RISK SURGERY) TREATMENT OF VENOUS THROMBOSIS 2-3 TREATMENT OF PULMONARY EMBOLISM 2-3 PREVENTION OF SYSTEMIC EMBOLISM: 2-3 ACUTE MYOCARDIAL INFARCTION TISSUE HEART VALVES VALVULAR HEART DISEASE ATRIAL FIBRILLATION RECURRENT SYSTEMIC EMBOLISM MECHANICAL HEART VALVE 2.5-3.5 FROM: ORAL ANTICOAGULANTS. MECHANISM OF ACTION, CLINICAL EFFECTIVENESS, AND OPTIMAL THERAPEUTIC RANGE. CHEST 1995;108:231S-246S. Performed By: #### 1 0070, 58473, 67783, 61620 #### [facility] [address] PT Coag (PPP) [Time] 24.9 s High 12.3-14.8 [facility] Comment on above: Order Comment: No: D o not add to previous draw Result Comment: ALL RESULTS MUST BE INTERPRETED WITH RESPECT TO BLOOD DRAWING ARTIFACT OR DILUTION ERROR OF ANTICOAGULANT AT THE TIME OF SAMPLING. Performed By: #### 1 [id number], [id number], [id number], [id number] #### [facility] [address] Basic Metabolic Panelon 07-06 Calcium [Mass/Vol] 9.4 mg/dL Normal 8.2-10.2 [facility] Comment on above: Performed By: #### H EPATIC, CBC, LIPASE, BMP #### [facility] [address] [place] [address] [place] Chloride [Moles/Vol] 103 mmol/L Normal 95-114 [facility] Comment on above: Performed By: #### H EPATIC, CBC, LIPASE, BMP #### [facility] [address] CO2 [Moles/Vol] 26.9 mmol/L Normal 22.0-30.0 [facility] Comment on above: Performed By: #### H EPATIC, CBC, LIPASE, BMP #### [facility] [address] Creatinine [Mass/Vol] 1.66 mg/dL High 0.64-1.27 [facility] Comment on above: Performed By: #### H EPATIC, CBC, LIPASE, BMP #### [facility] [address] Creatinine Clr Calc Pharmacy 68.90 [facility] Comment on above: Performed By: #### H EPATIC, CBC, LIPASE, BMP #### [facility] [address] Estimated GFR ( Beata 51 [facility] Comment on above: Result Comment: GFR estimated reference range: According to KDOQI guidelines, <60 ml/min/1.73m2 is sufficient to diagnose a patient with chronic kidney disease. Performed By: #### H EPATIC, CBC, LIPASE, BMP #### [facility] [address] Estimated GFR (Non- Am 42 [facility] Comment on above: Performed By: #### H EPATIC, CBC, LIPASE, BMP #### [facility] [address] [place] [address] [place] Glucose [Mass/Vol] 442 mg/dL High 70-100 [facility] Comment on above: Result Comment: [place] Glucose Reference Range is dependent on time and content of last meal. Glucose of more than 200 mg/dL in a nonstressed, ambulatory subject supports the diagnosis of Diabetes Mellitus. ADA recommended reference range Performed By: #### H EPATIC, CBC, LIPASE, BMP #### [facility] [address] [place] [id number] [place] Potassium [Moles/Vol] 4.1 mmol/L Normal 3.5-5.1 [facility] Comment on above: Performed By: #### H EPATIC, CBC, LIPASE, BMP #### [facility] [address] [place] [id number] [facility] Sodium [Moles/Vol] 140 mmol/L Normal 136-146 [facility] Comment on above: Performed By: #### H EPATIC, CBC, LIPASE, BMP #### [facility] [address] [place] [address] [place] Urea nitrogen [Mass/Vol] 29 mg/dL High 9-23 [facility] Comment on above: Performed By: #### H EPATIC, CBC, LIPASE, BMP #### [facility] [address] COVID-19 Antigenon 1 COVID-19 [facility] [...] its performance Tamera Disclaimer characteristic determined by [employer] and Tamera Disclaimer validated at [facility]. This Tamera Disclaimer test has not [...] is terminated or revoked sooner. PERFORMED BY: [facility] [place] [address] PATHOLOGIST BELL NECK HAMMERER TO [place] M.D. 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 This test has not been FDA [...] is terminated or revoked sooner. PERFORMED BY: [place] [address] PATHOLOGIST BELL NECK HAMMERER TO [place] M.D. Performed By: #### C OVID-19 TAMERA, SOFIANEG, COVID 19 [facility] #### [facility] [address] [place], [place] [id number] [facility] CT abdomen pelvis wo conon 1 [facility] abdomen pelvis wo con [facility] Main [place] [address] [place] [address] CT Scan Report Signed Patient: Andry Pierre MR#: [id number] 28 : 1960 Acct:[id number] Age/Sex: 60 / M ADM Date: 07/21/21 Loc: 4N Room: [address] [place] [address] Type: ADM INOo Attending Dr: Feliciano Hernandez [...] Ricks Jr., M.D.07/21/2021 9:15 AM Dictation Location: [place] [address] Transcribed By: [facility] 07/21/21914 Dictated By: Duke Ricks Jr, MD 07/21/21903 Signed By: 07/21/21914 Normal [facility] Coagulation Profileon 2020 aPTT Coag (Bld) [Time] 37.9 s High 25.1-36.5 [facility] Comment on above: Result Comment: PERF ORMED BY: [address] [place] [address] PATHOLOGIST BELL NECK HAMMERER TO [place] M.D. Performed By: #### P P #### [address] INR Coag (PPP) [Relative time] 2.0 {INR} Normal [facility] Comment on above: Result Comment: INR [...] 4.5 Performed By: #### P P #### [address] PT Coag (PPP) [Time] 22.5 s High 9.0-12.9 [facility] Comment on above: Performed By: #### P P #### [address] Complete Blood Count Auto Di ffon 07-21-2021 Basophils (Bld) [#/Vol] 0.1 10*3/uL Normal 0.0-0.2 [facility] Comment on above: Result Comment: PERF ORMED BY: [place] [address] PATHOLOGIST BELL NECK HAMMERER TO [place] M.D. Performed By: #### H EPATIC, CBC, LIPASE, BMP #### [address] Basophils/100 WBC (Bld) 0.6 % Normal . [facility] Comment on above: Performed By: #### H EPATIC, CBC, LIPASE, BMP #### [address] Eosinophils (Bld) [#/Vol] 0.4 10*3/uL Normal 0.0-0.45 [facility] Comment on above: Performed By: #### H EPATIC, CBC, LIPASE, BMP #### [address] Eosinophils/100 WBC (Bld) 4.3 % Normal . [facility] Comment on above: Performed By: #### H EPATIC, CBC, LIPASE, BMP #### [address] Erythrocyte distribution width (RBC) [Ratio] 13.7 % Normal 12.0-14.8 [facility] Comment on above: Performed By: #### H EPATIC, CBC, LIPASE, BMP #### [address] Hematocrit (Bld) [Volume fraction] 45.9 % Normal 38.8-50.0 [facility] Comment on above: Performed By: #### H EPATIC, CBC, LIPASE, BMP #### [address] Hemoglobin (Bld) [Mass/Vol] 15.4 g/dL Normal 13.0-17.0 [facility] Comment on above: Performed By: #### H EPATIC, CBC, LIPASE, BMP #### [address] Lymphocytes (Bld) [#/Vol] 2.9 10*3/uL Normal 1.00-4.8 [facility] Comment on above: Performed By: #### H EPATIC, CBC, LIPASE, BMP #### [address] Lymphocytes/100 WBC (Bld) 28.4 % Normal . [facility] Comment on above: Performed By: #### H EPATIC, CBC, LIPASE, BMP #### [address] MCH (RBC) [Entitic mass] 32.0 pg Normal 27.5-35.2 [facility] Comment on above: Performed By: #### H EPATIC, CBC, LIPASE, BMP #### [address] MCV (RBC) [Entitic vol] 95.2 fL Normal 83.5-101 [facility] Comment on above: Performed By: #### H EPATIC, CBC, LIPASE, BMP #### [address] [place] [address] [place] Mean Corpuscular HGB Conc 33.6 g/dL Normal 32.5-35.6 [facility] Comment on above: Performed By: #### H EPATIC, CBC, LIPASE, BMP #### [facility] [address] Monocytes (Bld) [#/Vol] 0.7 10*3/uL Normal 0.0-0.8 [facility] Comment on above: Performed By: #### H EPATIC, CBC, LIPASE, BMP #### [address] Monocytes/100 WBC (Bld) 6.7 % Normal . [facility] Comment on above: Performed By: #### H EPATIC, CBC, LIPASE, BMP #### [address] Neutrophils (Bld) [#/Vol] 6.0 10*3/uL Normal 1.8-7.7 [facility] Comment on above: Performed By: #### H EPATIC, CBC, LIPASE, BMP #### [place] [address] [place] Neutrophils/100 WBC (Bld) 60.0 % Normal . [facility] Comment on above: Performed By: #### H EPATIC, CBC, LIPASE, BMP #### [place] [address] [place] Nucleated RBC/100 WBC (Bld) [Ratio] 0.1 % Normal 0-0.5 [facility] Comment on above: Performed By: #### H EPATIC, CBC, LIPASE, BMP #### [facility] [address] [place] [address] [place] Platelet mean volume (Bld) [Entitic vol] 8.7 fL Normal 6.6-10.1 [facility] Comment on above: Performed By: #### H EPATIC, CBC, LIPASE, BMP #### [facility] [address] [place] [address] [place] Platelets (Bld) [#/Vol] 215 10*3/uL Normal 150-450 [facility] Comment on above: Performed By: #### H EPATIC, CBC, LIPASE, BMP #### [address] RBC (Bld) [#/Vol] 4.83 10*6/uL Normal 3.90-5.60 [facility] Comment on above: Performed By: #### H EPATIC, CBC, LIPASE, BMP #### [address] WBC (Bld) [#/Vol] 10.0 10*3/uL Normal 4.5-11.0 [facility] Comment on above: Performed By: #### H EPATIC, CBC, LIPASE, BMP #### [address] Glucose Poct Glucometerson 1 Commemt1 Glu2: Cleaned Meter Normal [facility] Comment on above: Result Comment: PERF ORMED BY: [place] [address] PATHOLOGIST BELL NECK HAMMERER TO [place] M.D. Performed By: #### H EPATIC, CBC, LIPASE, BMP #### [address] Glucose [Mass/Vol] 267 mg/dL Normal [facility] Comment on above: Result Comment: [facility] Glucose Reference Range is dependent on time and content of last meal. Glucose of more than 200 mg/dL in a nonstressed, ambulatory subject supports the diagnosis of Diabetes Mellitus. Performed By: #### H EPATIC, CBC, LIPASE, BMP #### [address] Commemt1 Glu2: Cleaned Meter Normal [facility] Comment on above: Result Comment: PERF ORMED BY: [place] [address] PATHOLOGIST BELL NECK HAMMERER TO [place] M.D. Performed By: #### H EPATIC, CBC, LIPASE, BMP #### [address] [place] [address] [place] Glucose [Mass/Vol] 252 mg/dL Normal [facility] Comment on above: Result Comment: [place] om Glucose Reference Range is dependent on time and content of last meal. Glucose of more than 200 mg/dL in a nonstressed, ambulatory subject supports the diagnosis of Diabetes Mellitus. Performed By: #### H EPATIC, CBC, LIPASE, BMP #### [facility] [address] Commemt1 Glu2: Cleaned Meter Normal [facility] Comment on above: Result Comment: PERF ORMED BY: [place] [address] PATHOLOGIST BELL NECK HAMMERER TO [place] M.D. Performed By: #### H EPATIC, CBC, LIPASE, BMP #### [address] Glucose [Mass/Vol] 100 mg/dL Normal [facility] Comment on above: Result Comment: [place] om Glucose Reference Range is dependent on time and content of last meal. Glucose of more than 200 mg/dL in a nonstressed, ambulatory subject supports the diagnosis of Diabetes Mellitus. Performed By: #### H EPATIC, CBC, LIPASE, BMP #### [address] Glucose [Mass/Vol] 140 mg/dL Normal [facility] Comment on above: Result Comment: [place] om Glucose Reference Range is dependent on time and content of last meal. Glucose of more than 200 mg/dL in a nonstressed, ambulatory subject supports the diagnosis of Diabetes Mellitus. PERFORMED BY: [facility] [address] [place] [address] PATHOLOGIST BELL NECK HAMMERER TO [place] M.D. Performed By: #### H EPATIC, CBC, LIPASE, BMP #### [address] Hepatic Panelon 07-21-2021 Albumin [Mass/Vol] 3.5 g/dL Normal 3.2-5.5 [facility] Comment on above: Performed By: #### H EPATIC, CBC, LIPASE, BMP #### [facility] [address] Albumin/Globulin [Mass ratio] 1.1 {ratio} Normal [facility] Comment on above: Performed By: #### H EPATIC, CBC, LIPASE, BMP #### [facility] [address] ALP [Catalytic activity/Vol] 115 U/L High 32- [facility] Comment on above: Performed By: #### H EPATIC, CBC, LIPASE, BMP #### [facility] [address] [place] [address] ALT [Catalytic activity/Vol] 30 U/L Normal [facility] Comment on above: Performed By: #### H EPATIC, CBC, LIPASE, BMP #### [facility] [address] [place] [address] AST [Catalytic activity/Vol] 19 U/L Normal - [facility] Comment on above: Performed By: #### H EPATIC, CBC, LIPASE, BMP #### [facility] [address] [place] [address] Bilirubin [Mass/Vol] 0.7 mg/dL Normal 0.3-1.2 [facility] Comment on above: Performed By: #### H EPATIC, CBC, LIPASE, BMP #### [facility] [address] [place] [address] Bilirubin,Indirect Not performed Normal [facility] Comment on above: Performed By: #### H EPATIC, CBC, LIPASE, BMP #### [facility] [address] [place] [address] Bilirubin.indirect [Mass/Vol] mg/dL Normal 0.0-0.4 [facility] Comment on above: Performed By: #### H EPATIC, CBC, LIPASE, BMP #### [facility] [address] [place] [address] Globulin (S) [Mass/Vol] 3.2 g/dL Normal [facility] Comment on above: Performed By: #### H EPATIC, CBC, LIPASE, BMP #### [facility] [address] Protein [Mass/Vol] 6.7 g/dL Normal 6.1-7.9 [facility] Comment on above: Performed By: #### H EPATIC, CBC, LIPASE, BMP #### [facility] [address] Lactic Acidon 07-21-2021 Lactate [Moles/Vol] 1.2 mmol/L Normal 0.5-2.2 [facility] Comment on above: Result Comment: PERF ORMED BY: [place] [address] PATHOLOGIST BELL NECK HAMMERER TO [place] M.D. Performed By: #### L ACTIC #### [address] Lipaseon 07-21-2021 Lipase [Catalytic activity/Vol] 43.0 U/L Normal 22-51 [facility] Comment on above: Result Comment: PERF ORMED BY: [place] [address] PATHOLOGIST BELL NECK HAMMERER TO [place] M.D. Performed By: #### H EPATIC, CBC, LIPASE, BMP #### [facility] [address] [place] [address] Tamera Ag Negativeon 07-21-20 21 Tamera Ag Negative Negative Normal Negative [facility] Comment on above: Result Comment: This is a duplicate Tamera SARS Antigen (GIOVANNA) result to be used for statistical tracking purpose only. PERFORMED BY: [place] [address] PATHOLOGIST BELL NECK HAMMERER TO [place] M.D. Performed By: #### C OVID-19 TAMERA, SOFIANEG, COVID 19 [facility] #### [facility] [address] [place] [address] Urinalysison 07-21-2021 Appearance (U) Clear Normal Clear [facility] Comment on above: Order Comment: Name Collection Type:: Clean-Voided Midstream Performed By: #### U A #### [facility] [address] [place] [address] [place] Bilirubin,Urine Negative Normal Negative [facility] Comment on above: Order Comment: Name Collection Type:: Clean-Voided Midstream Performed By: #### U A #### [facility] [address] [place] [address] [place] Color (U) Yellow Normal Yellow [facility] Comment on above: Order Comment: Name Collection Type:: Clean-Voided Midstream Performed By: #### U A #### [facility] [address] [place] [address] Glucose Ql (U) >=1000 High Normal [facility] Comment on above: Order Comment: Name Collection Type:: Clean-Voided Midstream Performed By: #### U A #### [facility] [address] [place] [address] Ketones Ql (U) Negative Normal Negative [facility] Comment on above: Order Comment: Name Collection Type:: Clean-Voided Midstream Performed By: #### U A #### [facility] [address] [place] [address] Leukocyte esterase Test strip Ql (U) Negative Normal Negative [facility] Comment on above: Order Comment: Name Collection Type:: Clean-Voided Midstream Performed By: #### U A #### [facility] [address] [place] [address] [place] Nitrite,Urine Negative Normal Negative [facility] Comment on above: Order Comment: Name Collection Type:: Clean-Voided Midstream Performed By: #### U A #### [facility] [address] [place] [address] [place] Occult Blood,Urine Negative Normal Negative [facility] Comment on above: Order Comment: Name Collection Type:: Clean-Voided Midstream Result Comment: PERF ORMED BY: [place] [address] PATHOLOGIST BELL NECK HAMMERER TO [place] M.D. Performed By: #### U A #### [facility] [address] [place] [address] [place] pH (U) 6.5 [pH] Normal 5.0-9.0 [facility] Comment on above: Order Comment: Name Collection Type:: Clean-Voided Midstream Performed By: #### U A #### [facility] [address] Protein,Urine Negative Normal Negative [facility] Comment on above: Order Comment: Name Collection Type:: Clean-Voided Midstream Performed By: #### U A #### [facility] [address] Specificy [place],Urine 1.026 Normal 1.001-1.030 [facility] Comment on above: Order Comment: Name Collection Type:: Clean-Voided Midstream Performed By: #### U A #### [address] Urobilinogen,Urine Normal Normal Normal [facility] Comment on above: Order Comment: Name Collection Type:: Clean-Voided Midstream Performed By: #### U A #### [address] Vital Signs Date Time Vital Sign Value Performing Clinician Facility 05-28-2024 10:57-0400 Body height 175.3 cm Yossi Bower MD Work Phone: [facility] 12-08-2023 19:17-0500 Respiratory rate 18 /min Abdirahman Hunt MD [facility] 12-08-2023 16:50-0500 Body temperature 97.9 [degF] Abdirahman Hunt MD [facility] 12-08-2023 16:50-0500 Diastolic blood pressure 88 mm[Hg] Abdirahman Hunt MD [facility] 12-08-2023 16:50-0500 Heart rate 90 /min Abdirahman Hunt MD [facility] 12-08-2023 16:50-0500 SaO2% (BldA) [Mass fraction] 98 % Abdirahman Hunt MD [facility] 12-08-2023 16:50-0500 Systolic blood pressure 149 mm[Hg] Abdirahman Hunt MD [facility] 12-05-2023 15:04-0500 Body height 180.3 cm Abdirahman Hunt MD [facility] 11-30-2023 00:18-0500 Body temperature 37.0 Abdirahman Hunt MD [facility] 11-29-2023 20:00-0500 Body mass index (BMI) [Ratio] 40.96 kg/m2 Abdirahman Hunt MD [facility] 11-29-2023 20:00-0500 Body weight 133.2 kg Abdirahman Hunt MD [facility] 11-06-2023 09:57-0500 Body height 175.3 cm Obed Florian MD Work Phone: [facility] 11-06-2023 09:57-0500 Body weight 123.38 kg Obed Florian MD Work Phone: [facility] 11-06-2023 09:57-0500 Diastolic blood pressure 89 mm[Hg] Obed Florian MD Work Phone: [facility] 11-06-2023 09:57-0500 Heart rate 81 /min Obed Florian MD Work Phone: [facility] 11-06-2023 09:57-0500 SaO2% (BldA) [Mass fraction] 95 % Obed Florian MD Work Phone: [facility] 11-06-2023 09:57-0500 Systolic blood pressure 127 mm[Hg] Obed Florian MD Work Phone: [facility] 01-21-2022 07:23-0400 Body height 182.9 cm Pacc 3 Work Phone: [facility] 01-21-2022 07:23-0400 Body temperature 97.2 [degF] Pac 3 Work Phone: [facility] 01-21-2022 07:23-0400 Body weight 140.21 kg Pacc 3 Work Phone: [facility] 04-18-2022 07:23-0400 Diastolic blood pressure 84 mm[Hg] Pacc 3 Work Phone: [facility] 01-21-2022 07:23-0400 Heart rate 57 /min Pacc 3 Work Phone: [facility] 01-21-2022 07:23-0400 SaO2% (BldA) [Mass fraction] 99 % Pacc 3 Work Phone: [facility] 01-21-2022 07:23-0400 Systolic blood pressure 134 mm[Hg] Pacc 3 Work Phone: [facility] 11-13-2021 12:20-0500 Body height 182.88 cm Sanjay Laroses Other [facility] Other 11-13-2021 12:20-0500 Body mass index (BMI) [Ratio] 42.04 kg/m2 Sanjay Laroses Other [facility] Other 11-13-2021 12:20-0500 Body temperature 96.2 [degF] Azlevi Laroses Other [facility] Other 11-13-2021 12:20-0500 Body weight 140.62 kg Sanjay Laroses Other [facility] Other 11-13-2021 12:20-0500 Diastolic blood pressure 60 mm[Hg] Aziz Thuans Other [facility] Other 11-13-2021 12:20-0500 Respiratory rate 20 /min Azlevi Laroses Other [facility] Other 11-13-2021 12:20-0500 SaO2% (BldA) [Mass fraction] 96 % Azlevi Laroses Other [facility] Other 11-13-2021 12:20-0500 Systolic blood pressure 92 mm[Hg] Sanjay Dooley Other [facility] Other Encounters Encounter Date Encounter Type Care Provider Facility Start: [facility]: 02-08-2025 amb[facility] Start: 11-29-2024 ambulatory [facility] Start: 11-08-2024 ambulatory [facility] Start: 11-02-2024 End: 11-02-2024 [facility] Start: 10-14-2024 End: 10-14-2024 [facility] Start: 09-20-2024 End: 09-20-2024 [facility] Start: 09-20-2024 End: 09-20-2024 [facility] Start: 09-16-2024 ambulatory [facility] Start: 08-12-2024 End: 08-12-2024 Telephone encounter Yossi Bower MD Work Phone: [facility] Start: 08-09-2024 ambulatory [facility] Start: 07-30-2024 End: 07-30-2024 Bamboo flowsheet Yossi Bower MD Work Phone: [facility] Start: 07-30-2024 End: 07-30-2024 Bamboo flowsheet Yossi Bower MD Work Phone: [facility] Start: 07-30-2024 End: 07-30-2024 Office outpatient visit 25 minutes Yossi Bower MD Work Phone: [facility] Comment on above: CIDP (chronic inflam matory demyelinating polyneuropathy) (CMS/HCC) (Primary Dx); 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 ([facility]); Bilateral foot-drop Start: 07-30-2024 End: 07-30-2024 ambulatory YOSSI BOWER Not Available Start: 07-28-2024 ambulatory [facility] Start: 07-26-2024 End: 07-26-2024 ambulatory [facility] Start: 07-13-2024 End: 07-13-2024 ambulatory [facility] Start: 06-21-2024 End: 06-21-2024 ambulatory YOSSI BOWER Not Available Start: 06-21-2024 End: 06-21-2024 Kay Bower MD Work Phone: [facility] Start: 06-21-2024 End: 06-21-2024 Kay Bower MD Work Phone: [facility] Start: 06-21-2024 End: 06-21-2024 Phys/qhp telephone evaluation 11-20 min Yossi Bower MD Work Phone: [facility] Comment on above: Diabetic mononeuropa thy associated with diabetes mellitus due to underlying condition ([facility]) (Primary Dx); CIDP (chronic inflammatory demyelinating polyneuropathy) ([facility]) Start: 06-02-2024 [facility]: 05-28-2024 End: 05-28-2024 Mikhailboo nancy Bower MD Work Phone: [facility] Start: 05-28-2024 End: 05-28-2024 [employer] Bower MD Work Phone: [facility] Start: 05-28-2024 End: 05-28-2024 Office outpatient visit 25 minutes Yossi Bower MD Work Phone: [facility] Comment on above: CIDP (chronic inflam matory demyelinating polyneuropathy) ([facility]) (Primary Dx) Start: 05-28-2024 End: 05-28-2024 ambulatory YOSSI BOWER Not Available Start: 05-18-2024 ambulatory TIFFANIE LU [facility] Start: 03-24-2024 End: 03-24-2024 ambulatory JU M BILLY Not Available Start: 03-22-2024 End: 03-22-2024 Emergency department patient visit SAY MCCORMICK [facility] Start: 03-09-2024 End: 03-09-2024 ambulatory JU Livan NATALIAJASPERAlicia Not Available Start: 02-25-2024 End: 02-25-2024 ambulatory YOSSI BOWER Not Available Start: 01-29-2024 End: 02-01-2024 Katie Irwin MD Work Phone: [facility] Start: 01-22-2024 End: 01-22-2024 ambulatory JU Livan BILLY Not Available Start: 01-21-2024 End: 01-21-2024 ambulatory JU CERVANTES Not Available Start: 01-06-2024 End: 01-06-2024 ambulatory JUJULIO CERVANTES Not Available Start: 11-29-2023 End: 12-08-2023 Evaluation and management of inpatient CHARLEE ARCE [facility] Start: 11-29-2023 End: 12-08-2023 Evaluation and management of inpatient Abdirahman Hunt MD [facility] 1C Stepdown Start: 11-28-2023 End: 11-29-2023 Emergency department patient visit SAY MCCORMICK [facility] Start: 11-28-2023 End: 12-01-2023 ambulatory DIOGENES JENNIFER [facility] Start: 11-25-2023 End: 11-26-[address] [facility] Start: 11-19-2023 End: 11-19-2023 Subsequent hospital visit by physician [facility] Comment on above: Canceled (Patient co ndition) Start: 11-06-2023 End: 11-07-2023 ambulatory SAY Licona Victor Manuel Facility:[facility] Start: 11-06-2023 End: 11-06-2023 ambulatory SAY Livan [facility] Facility:[facility] Start: 11-06-2023 End: 11-06-2023 Patient encounter procedure Obed Florian MD Work Phone: Neurology Comment on above: Diabetic polyneuropa thy associated with type 2 diabetes mellitus (HCC) [E11.42] (Primary Dx); Weakness; Obesity, Class III, BMI 40-49.9 (morbid obesity) (HCC) Start: 10-10-2023 ambulatory [facility] Start: 10-08-2023 End: 10-14-2023 Emergency department patient visit [facility] Start: 09-19-2023 End: 09-20-2023 ambulatory [facility] Facility:[facility] Start: 09-12-2023 Telephone encounter Shane bowling PA-C Work Phone: [facility] Comment on above: DBS problem Start: 08-11-2023 End: 08-12-2023 ambulatory Ramon Mendiola MD Facility: [place] Start: 07-07-2023 Telephone encounter Wesley Rose MD Work Phone: [facility] Start: 02-20-2023 End: 02-21-2023 ambulatory SURI BROWNLEE Facility:[facility] Start: 02-03-2023 End: 03-05-2023 ambulatory SHAIKH Brenda DEWEY Facility:[facility] Start: 01-07-2023 End: 01-08-[address] SAY MCCORMICK . Facility:[facility] Start: 01-06-2023 End: 01-31-2023 ambulatory SHAIKH Brenda DEWEY Facility:[facility] Start: 12-04-2022 End: 01-03-2023 ambulatory SHAIKH Brenda DEWEY Facility:[facility] Start: 11-06-2022 End: 12-04-2022 ambulatory SHAIKH Brenda DEWEY Facility:[facility] Start: 10-07-2022 End: 11-06-2022 ambulatory SHAIKH Brenda CHEVERONICA Facility:[facility] Start: 09-05-2022 End: 10-06-2022 ambulatory CARMICHAEL H MACO Facility:[facility] Start: 08-06-2022 End: 09-04-[address] SAY MCCORMICK . Facility:[facility] Start: 07-10-2022 Encounter for preprocedural laboratory examination DIOGENES GREERO [facility] Start: 07-08-2022 End: 07-09-2022 ambulatory DIOGENES RODRIGUEZ Facility:[facility] Start: 07-08-2022 End: 07-09-2022 Encounter for preprocedural laboratory examination DIOGENES GREERO Facility:[facility] Start: 07-08-2022 End: 08-05-[address] SAY MCCORMICK . Facility:[facility] Start: 06-24-2022 End: 06-24-2022 ambulatory PRANAVMARYBEL BERNARDS Facility:[facility] Start: 06-13-2022 End: 07-06-[address] SAY MCCORMICK . Facility:[facility] Start: 05-29-2022 End: 05-30-2022 ambulatory SOFYA HIDALGO Facility:[facility] Start: 05-23-2022 End: 05-24-2022 ambulatory SOFYA ZUNIGACKER Facility:[facility] Start: 05-06-2022 End: 06-05-2022 ambulatory SHAIKH Brenda DEWEY Facility:[facility] Start: 04-05-2022 End: 05-03-2022 ambulatory CARMICHAELJACEK ROLDANSHELDONAmy Facility:[facility] Start: 01-23-2022 Telephone encounter Wesley Rose MD Work Phone: [facility] Comment on above: Results Start: 01-21-2022 End: [...] whether esophagitis present; Pulmonary embolus with infarction (HCC); Congestive heart failure, unspecified HF chronicity, unspecified heart failure type (HCC); Stage 3 chronic kidney disease, unspecified whether stage 3a or 3b CKD (HCC) 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) (Primary Dx) Start: 01-21-2022 End: 01-21-2022 Nursing evaluation of patient and report Kerwin Brito RN Work Phone: [facility] Comment on above: Essential tremor (Pr imary Dx) Start: 01-21-2022 End: 01-21-2022 Patient encounter procedure Wesley Rose MD Work Phone: [facility] Comment on above: Essential tremor (Pr imary Dx) Start: 01-21-2022 End: 01-21-2022 Admission to establishment [facility] Main 3 Work Phone: [facility] Start: 01-21-2022 End: 01-21-2022 Preprocedural examination done Pacc Main 3 Work Phone: Pre Anesthesia Start: 01-04-2022 Telephone encounter Harris chowdhury MD Work Phone: [facility] Comment on above: DBS MARIA G message Start: 11-26-2021 End: 11-26-2021 ambulatory Sanjay Dooley Other [employer] Other Start: 11-26-2021 Telephone encounter Sanjay Dooley [facility] Start: 11-13-2021 End: 11-13-2021 ambulatory Sanjay Dooley Other [employer] Other Start: 11-13-2021 Office outpatient ne w 45 minutes Sanjay Dooley [facility] Neptali Start: 11-13-2021 Telephone encounter Sanjay Dooley [facility] Start: 07-21-2021 End: 07-27-2021 ambulatory JESUS RUSS Facility:[facility] Start: 05-29-2021 ambulatory Andry LIU Facility :[facility] Procedures Date Procedure Procedure Detail Performing Clinician [...] examinati on foot 2 views Rosalia Mobley [employer] - [employer]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[employer]ER Work Phone: Start: 12-05-2023 Glucose blood reagen [...] Phone: Start: 12-02-2023 EEG [employer]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 Comment on above: Performed By: #### A 1C #### [facility] [address] [address] [address] Miah Buck Start: 07-26-2021 Resection of Gallbladder, Percutaneous Endoscopic Approach [facility]ADISONARELI OLIVIER Start: 07-24-2021 DILATION OF COMMON HEPATIC DUCT, ENDO ALI T NAWRAS Start: 02-24-2015 Colonoscopy Mth 1 Start: 12-01-2014 H/O: surgery S/P deep brain stimulator placement Mth 1 H/O: surgery S/P deep brain stimulator placement Abdirahman Hunt MD Plan of Treatment Date Care Activity Detail Author Start: 02-21-2028 Prostate Cancer Screening Discussion Prostate Cancer Screening Discussion [facility] Start: 02-21-2028 Prostate specific antigen measurement Prostate Cancer Screening Discussion [facility] Start: 2025 Pneumococcal 0-64 years Vaccine (3 - PPSV23 or PCV20) Pneumococcal 0-64 years Vaccine (3 - PPSV23 or PCV20) [facility] Start: 2025 Pneumococcal vaccination [facility] Start: 02-24-2025 Screening for malignant neoplasm of colon [facility] Start: 12-02-2024 GFR test (Diabetes, CKD 3-4, OR last GFR 15-59) GFR test (Diabetes, CKD 3-4, OR last GFR 15-59) [facility] Start: 11-25-2024 Hemoglobin A1c measurement A1C test (Diabetic or Prediabetic) [facility] Start: 09-24-2024 End: 09-24-2024 Patient encounter procedure 09/24/2024 11:30 AM EST Office Visit [facility] [address] [place] [address] Yossi Bower MD [address] [place] [address] [id number] [facility] Start: 07-30-2024 End: 07-30-2024 Patient encounter procedure [facility] Comment on above: Arrived Start: 06-21-2024 End: 06-21-2024 Patient encounter procedure 06/21/2024 12:00 PM EDT Office Visit [facility] [address] [place] [phone] Yossi Bower MD [address] [place] [address] [phone] [facility] Start: 06-06-2024 Influenza vaccination [facility] Start: 05-28-2024 End: 05-28-2024 Patient encounter procedure 05/28/2024 11:40 AM EDT Office Visit [facility] [address] [place] [address] Yossi Bower MD [address] [place] [phone] Arrived [facility] Comment on above: Arrived Start: 01-15-2024 End: 01-15-2024 Patient encounter procedure 01/15/2024 11:40 AM EDT Office Visit [facility] Neu[facility] Specialist [address] [place] [address] [address] [place] [phone] [place] [address] [place] [address], [address] [place] [address] and ophthalmology referral [facility] Neurology Specialist Comment on above: 6W labs CT and ophthalmology referral [facility] Start: 12-16-2023 End: 12-16-2023 Patient encounter procedure 12/16/2023 2:00 PM EDT Procedure visit [facility] [address] [place] [id number] Evelyn Claire MD [address] [place] [id number] emg: ble (has heart monitor implanted- not pacemaker) [facility] Comment on above: emg: ble (has heart monitor implanted- n ot pacemaker) Start: 11-28-2023 End: 11-28-2023 Patient encounter procedure 11/28/2023 1:00 PM EST Appointment [facility] [address] [place] [address] MEDIA - R/S W/ PT GWEN 11[facility]19/23 [facility] Comment on above: MEDIA - R/S W/ PT GWEN 11/19/23 BB Start: 11-25-2023 End: 11-25-2023 Patient encounter procedure 11/25/2023 11:40 AM EST Office Visit [facility] [address] [place] [phone] Yudith Martinez PA [address], [address] [place] [address] 4W swallow study double vision [facility] Comment on above: 4W swallow study double vision Start: 11-04-2023 End: 11-04-2024 Tilt table Tilt table [facility] Card[facility] Diagnostics Routine Syncope and collapse Expected: 11/04/2023, Expires: 11/04/2024 [employer] Work Phone: Comment on above: Expected: 11/04/2023, Expires: Start: 10-27-2023 Adult BMI Screening Adult BMI Screening [employer] tem Start: 10-27-2023 Complete blood count Hemoglobin/Hematocrit [facility] Start: 10-27-2023 Creatinine measurement Serum Creatinine [facility] Start: 10-27-2023 Serum Creatinine Serum Creatinine [facility] Start: 10-27-2023 Tobacco Screening Tobacco Screening [employer] [facility] Start: 10-06-2023 Annual Wellness Visit (Medicare Advantage) Annual Wellness Visit (Medicare Advantage) [employer] Start: 06-06-2023 Covid-19 Vaccine ( season) Covid-19 Vaccine ( season) [facility] Start: 06-06-2023 Influenza vaccination Influenza Vaccine (#1) [facility] Start: 05-06-2023 Influenza vaccination Flu vaccine (#1) [employer] Start: 01-21-2023 HEMOGLOBIN/HEMATOCRIT HEMOGLOBIN/HEMATOCRIT [facility] Start: 01-21-2023 SERUM CREATININE SERUM CREATININE [facility] Start: 11-28-2022 SERUM CREATININE SERUM CREATININE [facility] Start: 06-06-2022 Influenza vaccination INFLUENZA (Season Ended) [facility] Start: 04-22-2022 Hemoglobin A1c measurement HbA1C [facility] Start: 04-22-2022 Hemoglobin A1c/Hemoglobin.total in Blood HBA1C [facility] Start: 01-20-2022 End: 03-22-2022 Hemoglobin A1c/Hemoglobin.total in Blood HGB A1C Lab Routine Type 2 diabetes mellitus with other specified complication, with long-term current use of insulin (HCC) Pre-op evaluation Expected: 01/20/2022, Expires: 03/22/2022 [facility] Work Phone: Comment on above: Expected: 01/20/2022, Expires: 2 Start: 02-03-2021 COVID-19 VACCINE (2 - Booster for Mary Ellen series) COVID-19 VACCINE (2 - Booster for Mary Ellen series) [facility] Start: 2020 Hepatitis B Vaccine (1 of 3 - Risk 3-dose series) Hepatitis B Vaccine (1 of 3 - Risk 3-dose series) [facility] Start: 2020 Respiratory Syncytial Virus (RSV) or age 60 yrs+ (1 - 1-dose 60+ series) Respiratory Syncytial Virus (RSV) or age 60 yrs+ (1 - 1-dose 60+ series) [facility] Start: 2020 RSV Vaccine (1 - 1-dose 60+ series) RSV Vaccine (1 - 1-dose 60+ series) [facility] Start: 08-19-2020 Diabetic foot examination Diabetic foot exam [facility] Start: 12-12-2018 Hemoglobin A1c/Hemoglobin.total in Blood HBA1C [facility] Start: 08-29-2016 Urine screening for protein Diabetic Alb to Cr ratio (uACR) test [facility] Start: 08-09-2016 GFR test (Diabetes, CKD 3-4, OR last GFR 15-59) GFR test (Diabetes, CKD 3-4, OR last GFR 15-59) [facility] Start: 07-18-2016 Lipid panel Lipids [facility] Start: 05-05-2016 Hemoglobin A1c measurement A1C test (Diabetic or Prediabetic) [facility] Start: 2015 PROSTATE CANCER SCREENING DISCUSSION PROSTATE CANCER SCREENING DISCUSSION [facility] Start: 07-27-2015 Glaucoma screening Diabetic retinal exam [facility] Start: 2010 Administration of varicella zoster vaccine Zoster (Shingles) Vaccine (1 of 2) [facility] Start: 2010 Shingles vaccine (1 of 2) Shingles vaccine (1 of 2) [facility] Start: 2010 SHINGRIX VACCINE (1 of 2) SHINGRIX VACCINE (1 of 2) [facility] Start: 2005 COLOGUARD (FIT-DNA) COLOGUARD (FIT-DNA) [facility] Start: 2005 Colonoscopy COLONOSCOPY [facility] Start: 2005 COLORECTAL CANCER SCREENING COLORECTAL CANCER SCREENING [facility] Start: [address] COLONOGRAPHY [facility] Start: 2005 FECAL OCCULT BLOOD FECAL OCCULT BLOOD [facility] Start: 2005 Screening for malignant neoplasm of colon [facility] Start: 2005 SIGMOIDOSCOPY SIGMOIDOSCOPY [facility] Start: 10-07-2000 Urine microalbumin profile DTaP,Tdap,Td Vaccine (1 - Tdap) [facility] Start: 1990 Zoledronic acid therapy Alpha-1 Antitrypsin Deficiency Screening [facility] Start: 1979 DTaP,Tdap and Td Vaccines (1 - Tdap) DTaP,Tdap and Td Vaccines (1 - Tdap) [facility] Start: 1979 DTaP/Tdap/Td vaccine (1 - Tdap) DTaP/Tdap/Td vaccine (1 - Tdap) [facility] Start: 1979 Urine microalbumin profile [facility] Start: 1978 ANNUAL PCP TEAM CHRONIC DISEASE VISIT ANNUAL PCP TEAM CHRONIC DISEASE VISIT [facility] Start: 1978 BP CONTROLLED (<130/80) BP CONTROLLED (<130/80) [facility] Start: 1978 Hepatitis B surface antibody level LDL CHOLESTEROL [facility] Start: 1978 HEPATITIS C SCREENING HEPATITIS C SCREENING [facility] Start: 1978 Hepatitis C screening Hepatitis C Screening [facility] Start: 1978 HIV SCREENING HIV SCREENING [facility] Start: 1978 HIV screening HIV Screening [facility] Start: 1975 HIV screening HIV screen [facility] [employer] Start: 1972 Depression Monitoring Depression Monitoring [employer] Start: 1972 Depression Screening Depression Screening [employer] Start: 1970 3 comp foot exam completed DIABETIC FOOT EXAM [facility] Start: 1970 Diabetic foot examination Diabetic Foot Exam [facility] Start: 1970 Glaucoma screening Dilated Retinal Exam [facility] Start: 1970 Hepatitis B screening URINE ALBUMIN:CREATININE RATIO [facility] Start: 1970 Hepatitis C antibody, confirmatory test DILATED RETINAL EXAM [facility] Start: 1960 Screening for malignant neoplasm of colon [facility] NIV/Positive Airway Pressure Adult NIV/Positive Airway Pressure Respiratory Care Routine Every 4hr until discontinued starting 11/30/2023 [employer] Comment on above: Every 4hr until discontinued starting Continuous pulse oximetry Pulse oximetry, continuous Respiratory Care Routine Every 4hr until discontinued starting 12/03/2023 [employer] Comment on above: Every 4hr until discontinued starting Glucose [Mass/volume ] in Serum or Plasma [employer] Comment on above: 4X Daily (AC & HS) until discontinued st arting 11/30/2023 As Needed until disc ontinued starting 11/30/2023 Hemoglobin A1c/Hemoglobin.total in Blood HGB A1C Lab Routine Type 2 diabetes mellitus with other specified complication, with long-term current use of insulin (HCC) Pre-op evaluation 01/21/2022 9:30 AM EDT [facility] Work Phone: End: 12-23-2023 Hemoglobin and Hematocrit Hemoglobin and Hematocrit Lab Routine Every Other Day for 10 Occurrences starting 12/05/2023 until 12/23/2023, 2 completed [employer] Comment on above: Every Other Day for 10 Occurrences start ing 12/05/2023 until 12/23/2023, 2 completed Oxygen therapy [[facility]] Initiate Oxygen Therapy Protocol Respiratory Care Routine As Needed until discontinued starting 11/29/2023 [employer] Comment on above: As Needed until discontinued starting End: 12-23-2023 Platelets [#/volume] in Blood Platelet Count Lab Routine Every Other Day for 10 Occurrences starting 12/05/2023 until 12/23/2023, 2 completed [employer] Comment on above: Every Other Day for 10 Occurrences start ing 12/05/2023 until 12/23/2023, 2 completed End: 12-14-2023 Protime-INR Protime-INR Lab Routine Daily for 7 Days starting 12/08/2023 until 12/14/2023, 1 completed [employer] Comment on above: Daily for 7 Days starting 12/08/2023 unt il 12/14/2023, 1 completed End: 11-30-2023 [facility] clinical swallow evaluation [facility] clinical swallow evaluation [facility] Routine One Time for 1 Occurrences starting 11/30/2023 until 11/30/2023 [employer] Work Phone: Comment on above: One Time for 1 Occurrences starting 11/07 until 11/30/2023 End: 11-30-2023 SPECIMEN REJECTION [employer] Comment on above: Once for 1 Occurrences starting 11/30/19 until 11/30/2023 End: 11-30-2023 Speech and language therapy regime [facility]TER eval and treat [facility] Routine One Time for 1 Occurrences starting 11/30/2023 until 11/30/2023 [employer] Comment on above: One Time for 1 Occurrences starting 11/07 until 11/30/2023 STAPH AUREUS PCR STAPH [facility] PC R Lab Routine 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) Ordered: 01/21/2022 [facility] Work Phone: Comment on above: Ordered: 01/21/2022 [facility] Immunizations Immunization Date Immunization Notes Care Provider Fa [facility] 07-19-2021 Influenza, injectabl e, [place] Canine Kidney, preservative free, quadrivalent Yossi Bower MD Work Phone: [facility] 07-19-2021 influenza virus vaccine, unspecified formulation Wesley Rose MD Work Phone: [facility] 07-07-2020 Influenza, injectabl e, [place] [place] Canine Kidney, preservative free, quadrivalent Harris Faustin MD Work Phone: [facility] 08-01-2019 influenza virus vaccine, unspecified formulation Harris Faustin MD Work Phone: [facility] 08-10-2018 influenza, injectabl e, quadrivalent, preservative free Harris Faustin MD Work Phone: [facility] 07-24-2018 Influenza, injectabl e, Madin [place] Canine Kidney, preservative free, quadrivalent Harris Faustin MD Work Phone: [facility] 09-10-2017 influenza virus vaccine, unspecified formulation Harris Faustin MD Work Phone: [facility] 08-11-2017 pneumococcal polysaccharide vaccine, 23 valent Harris Faustin MD Work Phone: [facility] 08-05-2016 influenza virus vaccine, unspecified formulation Harris Faustin MD Work Phone: [facility] 11-13-2015 pneumococcal conjuga te vaccine, 13 valent Harris Faustin MD Work Phone: [facility] 07-18-2015 influenza virus vaccine, unspecified formulation [address] 07-18-2015 influenza virus vaccine, whole virus Harris Faustin MD Work Phone: [facility] 07-18-2015 influenza, seasonal, injectable Laura Irwin MD Work Phone: [facility] 07-06-2015 influenza, high dose seasonal, preservative-free Harris Faustin MD Work Phone: [facility] 09-13-2014 influenza, injectabl e, quadrivalent, preservative free Harris Faustin MD Work Phone: [facility] 08-06-2014 influenza virus vaccine, unspecified formulation Yossi Bower MD Work Phone: [facility] 06-25-2013 influenza, seasonal, injectable, preservative free Harris Faustin MD Work Phone: [facility] 06-17-2012 influenza, seasonal, injectable Harris Faustin MD Work Phone: [facility] 09-11-2010 pneumococcal polysaccharide vaccine, 23 valent Harris Faustin MD Work Phone: [facility] 10-06-2002 influenza virus vaccine, unspecified formulation Yossi Bower MD Work Phone: [facility] 10-06-2000 TD(adult) unspecifie d formulation Yossi Bower MD Work Phone: [facility] Payers Date Payer Category Payer Medicare (Managed Care) [facility] Member Subscriber Plan / Payer (Effective 2024-Present) Name: LeslyAndry Relation to Subscriber: Self Name: Andry Pierre Payer ID: Not on file Group ID: [id number] Type: Not on file Address: [address] [place] [id number] 2024 Medicare [id number] 2021 Medicare [id number] 2021 Medicare [id number]. [id number] 2021 Unknown [id number] 2021 Unknown [id number] 2019 Unknown [employer]IA [employer] THANIA MASCORRO O [id number] 2019-Present [phone] [address] [place] [id number] [facility] [id number]. [id number] 2019 Medicaid 2018 Unknown [id number] 1960 Unknown [id number] 2.16.840.1.168524.3.579.2. 647 1960 Unknown [id number] 2.16.840.1.764252.3.579.2. 593 1960 Unknown [id number] 2.16.840.1.568436.3.579.2. 593 1960 Unknown [id number] 2.16.840.1.292819.3.579.2. 593 1960 Unknown [id number] 2.16.840.1.880912.3.579.2. 593 1960 Unknown [id number] 2.16.840.1.415138.3.579.2. 593 1960 Unknown [id number] 2.16.840.1.681938.3.579.2. 593 1960 Unknown [id number] 2.16.840.1.590893.3.579.2. 593 1960 Unknown [id number] 2.16.840.1.288928.3.579.2. 593 1960 Unknown [id number] 2.16.840.1.653254.3.579.2. 593 1960 Unknown [id number] 2.16.840.1.663797.3.579.2. 593 1960 Unknown [id number] 2.16.840.1.982271.3.579.2. 593 1960 Unknown [id number] 2.16.840.1.845094.3.579.2. 593 1960 Unknown [id number] 2.16.840.1.079437.3.579.2. 593 1960 Unknown [id number] 2.16.840.1.092499.3.579.2. 593 1960 Unknown [id number] 2.16.840.1.495832.3.579.2. 593 1960 Unknown [id number] 2.16.840.1.365063.3.579.2. 593 1960 Unknown [id number] 2.16.840.1.567077.3.579.2. 593 1960 Unknown [id number] 2.16.840.1.892578.3.579.2. 593 1960 Unknown [id number] 2.16.840.1.069648.3.579.2. 593 1960 Unknown [id number] 2.16.840.1.326415.3.579.2. 196 1960 Unknown [id number] 2.16.840.1.200219.3.579.2. 1286 1960 Unknown [id number] 2.16.840.1.508755.3.579.2. 1286 1960 Unknown [id number] 2.16.840.1.716758.3.579.2. 1286 1960 Unknown [id number] 2.16.840.1.104239.3.579.2. 1286 1960 Unknown [id number] 2.16.840.1.810091.3.579.2. 1286 1960 Unknown [id number] 2.16.840.1.820047.3.579.2. 1286 1960 Unknown [id number] 2.16.840.1.937014.3.579.2. 177 1960 Unknown [id number] 2.16.840.1.111835.3.579.2. 173 1960 Unknown [id number] 2.16.840.1.769478.3.579.2. 173 1960 Unknown [id number] 2.16.840.1.068762.3.579.2. 175 1960 Unknown [id number] 2.16.840.1.940360.3.579.2. 1259 1960 Unknown [id number] 2.16.840.1.069202.3.579.2. 1259 1960 Unknown [id number] 2.16.840.1.556892.3.579.2. 1259 1960 Unknown [id number] 2.16.840.1.773741.3.579.2. 1259 1960 Unknown [id number] 2.16.840.1.601920.3.579.2. 9 1960 Unknown [id number] 2.16.840.1.676871.3.579.2. 9 1960 Unknown [id number] 2.16.840.1.141212.3.579.2. 1259 1960 Unknown [id number] 2.16.840.1.503569.3.579.2. 1259 1960 Unknown [id number] 2.16.840.1.407474.3.579.2. 9 1960 Unknown [id number] 2.16.840.1.846307.3.579.2. 727 1960 Unknown [id number] 2.16.840.1.377494.3.579.2. 1286 1960 Unknown [id number] 2.16.840.1.618281.3.579.2. 1286 1959 Private Health Insurance [id number] Unknown [id number] 2.16.840.1.021728.19 Social History Date Type Detail Facility Start: 05-31-2013 End: 06-12-2018 Tobacco smoking status NHIS Never smoked tobacco [facility] Work Phone: Start: 05-31-2013 End: 06-12-2018 Tobacco use and exposure Former smokeless tobacco user [facility] Work Phone: End: 09-17-2015 History of tobacco use Chews Tobacco [facility] Work Phone: Start: 06-15-2021 End: 10-27-2022 Alcohol intake Current non-drinker of alcohol (finding) [facility] Start: 01-04-2020 History SDOH Alcohol Frequency 1 [facility] Start: 01-04-2020 Tobacco Comment 30 years [facility] Start: 1960 Sex Assigned At Male C [facility] Start: 05-31-2013 End: 09-19-2023 Tobacco use and exposure User of smokeless tobacco [facility] Work Phone: Start: 01-11-2022 End: 01-21-2022 Exposure to SARS-CoV-2 (event) Not sure [facility] Start: 01-04-2020 End: 11-16-2020 Sex Assigned At [facility] History of tobacco use Cigarette Smoker [facility] Work Phone: Start: 01-04-2020 End: 11-16-2020 History of Social function [facility] How often to you hav e a drink containing alcohol? Never [facility] Average Number of Drinks Not on file [facility] Start: 08-16-2019 Gender identity Identifies as male gender (finding) [facility] Start: 08-16-2019 Sexual orientation Heterosexual (fin ding) [facility] Start: 10-28-2023 End: 12-03-2023 Alcohol intake Lifetime non-drinker (finding) [facility] Has the electric, gas, oil, or water company threatened to shut off services in your home in past 12Mo No [facility] (I/We) worried whether (my/our) food would run out before (I/we) got money to buy more. Never true [facility] Start: 01-06-2024 Tobacco use and exposure Smokeless tobacco non-user [facility] Start: 1960 Sex assigned at Not on file P [place] NEGATED: Highlighted rowStart: NINF History of tobacco use Passive smoker [facility] Medical Equipment Procedure Code Equipment Code Equipment Origin al Text Equipment Identifier Dates Ipg Activa Sc Db s Dual Extn - [id number][facility] Start: 06-30-2013 Comment on above: Description: ACTIVA SC Multi-program Leonor rostimulator for deep Brain Stimulation Neurostimulator Activa Sc 0-10.5v 2-250hz 0-25.5ma 2.4inx2.2in .4in - [id number][facility] Start: 07-24-2016 Neurostimulator Activa Sc 0-10.5v 2-250hz 0-25.5ma 2.4inx2.2in .4in - [id number][facility] Start: 06-30-2019 Neurostimulator Activa Sc 0-10.5v 2-250hz 0-25.5ma 2.4inx2.2in .4in - [id number][facility] Start: 01-30-2022 [id number], [id number] Start: 06-29-2014 Comment on above: Use as directed sq bid Nicholas Iol 0d +18d Mod L Acrsf Rpl [id number] - [id number] - [id number][facility] Start: 07-20-2019 Nicholas Iol 0d +18d Mod L Acrsf Rpl [id number] - [id number] - [id number][facility] Start: 08-17-2019 Clinical Notes 07-27-2021 to 11-29-2024 Telephone Encounter - Cheryl Mcdonough - 08/12/2024 8:56 AM ESTTelephone Encounter - Cheryl Mcdonough - 08/12/2024 8:56 AM Magdalena Bower MD - 07/30/2024 11:50 AM EDTDischarge Instr - CHERIE Note Date & Type Note Facility 11-29-2024 Note Multidisciplinary de ep brain stimulation clinic Provider: Mario Van MD 11/29/24 HPI: nAdry Pierre is a 64 y.o. male with essential tremor, seen in multidisciplinary DBS clinic today for initial DBS programming. Left VIM DBS was placed for essential tremor around [id number] at [facility]. Later he was re-evaluated for right VIM DBS but was deemed poor surgical candidate. His IPG was nonfunctioning since mid 2023 and eventually had IPG replacement with Dr. Arvizu on 10/14/2024 and put on the following setting: C+1-, 90us, 185 Hz, 3.3mA which was using estimated constant current settings based on his constant voltage settings from prior system. He noticed improvement in tremor compared to pre-op but worse than before IPG stopped working. He report trouble doing ADL including holding utensil, and woodworking which he was previously able to do. Current Medication: Topiramate 200 mg bid Previous Medication: Gabapentin - stroke?, pregabalin - leg muscle cramp, propranolol - ineffective even at high dose He also has CIDP, previously unable to tolerate IVIG infusion due to significant leg swelling. His last infusion was more than 1 year ago and has been having progressively worsening weakness, neuropathic pain, and numbness. He is wheelchair bound due to weakness. Deep brain stimulation: left unilateral VIM DBS Neurosurgeon: Dr. Glover (DBS) Dr. Arvizu (pulse generator replacement 2024) Device: left Activa SC deep brain stimulator ([id number]?), Percept PC 2024 DBS implant date: 2005, IPG Mopolar impedance WNL Bipolar 0-3 low Initial setting left: Active program: group A Case+ 1- Amplitude:3.3mA Pulse Width:90 us Frequency:185 Hz Mopolar impedance WNL Bipolar 0-3 low Settings tried today and effects: C+1- 90us, 185Hz 3.3-3.6 incremental improvement in postural tremor, intention tremor. Higher stimulation, transient right thumb and index finger and facial paresthesia C+2- 90us, 185Hz 3.5 started showing improvement in tremor C+2- 90us, 185Hz incremental improvement in postural tremor, improvement in intention tremor 4.5 - 5.2 slight right facial pulling transient 2+1- 90us, 185Hz 3.0- 4.3 incremental improvement in intention tremor, postural tremor improved at 3.5, no side effects 2+1- 90us, 185Hz 4.5 mA intention tremor worsening 2+1- 90us, 175 - 195 Hz 3.0 no significant change 1+2- 90us, 185Hz 4.0 - 4.6 postural tremor almost gone, improvement intention tremor, no side effects Final setting left: Active program: group A 2+1- Amplitude:3.0 mA Pulse Width: Frequency:185 Patient Limit: 3.0-3.5mA Past Medical History: Diagnosis Date CHF (congestive heart failure) ([facility]/HCC) Chronic inflammatory demyelinating neuropathy ([facility]/HCC) Chronic kidney disease CIDP (chronic inflammatory demyelinating polyneuropathy) ([facility]) Diabetes mellitus (CMS/HCC) Dyslipidemia GERD (gastroesophageal reflux disease) Hypertension Obstructive sleep apnea Pulmonary embolism ([facility]/HCC) Past Surgical History: Procedure Laterality Date ANKLE SURGERY Bilateral CARDIAC SURGERY loop recorder CHOLECYSTECTOMY DEEP BRAIN STIMULATOR PLACEMENT 10/14/2024 IPG replacement, [facility], Dr. Arvizu INSERTION / REMOVAL CRANIAL DBS GENERATOR SMALL INTESTINE SURGERY Family History Problem Relation Name Age of Onset Coronary artery disease Mother Coronary artery disease Father Allergies Allergen Reactions Beta-Blockers (Beta-Adrenergic Blocking Agts) Headache, Itching and Other Diazepam Unknown Was on the ground after took it Was on the ground after took it Other reaction(s): Allergy: ANAPHYLAXIS; Gabapentin Other and Unknown Unknown Unknown Hydralazine Unknown Headache, nausea, sick Headache, nausea, sick Medication Documentation Review Audit Reviewed by Kristin Saucedo MA ([employer]) on 11/02/24 at 1410 Medication Order Taking? Sig Documenting Provider Last Dose Status allopurinol (Zyloprim) 100 mg tablet [id number] Yes Take 100 mg by mouth 1 (one) time each day at the same time. Historical ProviderMD Taking Active amitriptyline (Elavil) 25 mg tablet [id number] Yes TAKE 2 TABLETS BY MOUTH ONCE DAILY AT BEDTIME FOR 30 DAYS Historical ProviderMD Taking Active apixaban (Eliquis) 5 mg tablet [id number] Yes Take 5 mg by mouth in the morning and at bedtime. Historical ProviderMD Taking Active atorvastatin (Lipitor) 40 mg tablet [id number] Yes Take 40 mg by mouth at bedtime. Historical Provider, Taking Active baclofen (Lioresal) 10 mg tablet [id number] Yes TAKE 1/2-1 TABLET BY MOUTH THREE TIMES DAILY Historical ProviderMD Taking Active candesartan (Atacand) 8 mg tablet [id number] Take 1 tablet (8 mg) by mouth in the morning. Suri Brownlee MD 07/26/24 1948 cetirizine (ZyrTEC) 10 mg tablet [id number] Yes Take 10 mg by mouth in the morning and at bedtime. Historical ProviderMD Taking Active cholecalciferol, vitamin D3, 50 mcg (2,000 unit) (more content not included)... [facility] 11-02-2024 Note Neurosurgery Clinic Note Chief Complaint: Postop. Interval History: Andry Pierre is a 64 y.o. year-old male who presents for postoperative follow-up after undergoing an exchange of an existing left Activa SC deep brain stimulator pulse generator with a new percept PC generator. He had presented with end of service of the system. He has a longstanding history of left unilateral VIM DBS. He denies difficulty with his wound. He denies substantial pain at the surgical site. After reinitiation of stimulation, tremor in his right upper extremity appears worse than at his baseline. Andry Pierre is a 63 y.o. right-handed male who presents in kind referral from Ju Cervantes NP with [facility] neurology in [place] for evaluation of a nonfunctional implanted pulse generator. A portion of his history is obtained from the medical record. Somewhere between 2000 and 2005 he had undergone placement of a left VIM DBS with a left single channel IPG by Dr. Glover, for treatment of essential tremor. He had undergone several IPG exchanges the last of which was in [address] [facility]. In 2019, placement of a right VIM electrode was considered at the [facility] and the patient underwent a substantial workup, but ultimately it was determined that his cardiac risk was prohibitively high. Since that time, the patient's had a number of other neurologic problems including reportedly developing CIDP. He has lost use of his legs and is now wheelchair-bound. Around 5 months ago, he noticed sudden worsening of tremor in the right upper extremity. Since that time, it has been difficult for him to perform activities of daily living with his right upper extremity, which is his dominant hand. The patient was referred to discuss exchange of the implanted pulse generator. He states that his DBS system has not been interrogated or adjusted in some time. The patient is also concerned because he has been told in the past that he had essential tremor but has more recently been told that he may have Parkinson's disease. He is unsure which portions of his current neurologic symptoms may be related to CIDP and which portions may be related to a movement disorder. Of note, he has numerous medical comorbidities including COPD, PAM, history of venous thromboembolism with anticoagulation on Eliquis, and CAD. Problem List: Patient Active Problem List Diagnosis Acute, but ill-defined, cerebrovascular disease Asthma Neuropathy CHF (congestive heart failure) ([facility]/HCC) Chronic deep vein thrombosis (DVT) of proximal vein of both lower extremities ([facility]/HCC) CKD (chronic kidney disease) Congenital heart disease COPD (chronic obstructive pulmonary disease) ([facility]) History of DVT (deep vein thrombosis) Diastolic dysfunction Difficult intravenous access Dyslipidemia Leg edema Elevated PSA Esophageal reflux Essential hypertension Hematuria, gross Hyperlipidemia Hypokalemia Low back pain BMI 45.0-49.9, adult ([facility]) Obstructive sleep apnea syndrome Other diseases of pharynx, not elsewhere classified(478.29) Parkinson's disease ([facility]) History of pulmonary embolus (PE) Recurrent major depression in partial remission SOB (shortness of breath) Subarachnoid bleed ([facility]) Tracheal stenosis Tremor Type 2 diabetes mellitus without complication ([facility]) Urge incontinence of urine Urinary tract infection without hematuria Volume overload Syncope and collapse 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 ([facility]) Chronic heart failure with preserved ejection fraction ([facility]) Anxiety state Cocaine dependence in remission ([facility]) Disorder of refraction and accommodation Gout History of tracheostomy Hypersomnia with sleep apnea Major depressive disorder, recurrent, moderate ([facility]) Morbid obesity ([facility]) Nondependent cannabis abuse in remission Presbyopia Cellulitis Abdominal pain Acute encephalopathy Acute renal failure (ARF) Altered awareness, transient Altered mental status Bilateral lower extremity edema Bilateral primary osteoarthritis of knee Choledocholithiasis Cholelithiases Chronic anticoagulation 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 Depression Diabetic mononeuropathy associated with diabetes mellitus due to underlying condition ([facility]) Diabetic neuropathy ([facility]) DVT (deep venous thrombosis) ([facility]) Dysphagia Encounter for chronic pain management Equinus contracture of right ankle History of hematemesis History of stroke Irritable bowel syndrome Lumbar facet arthropathy Lumbar radiculopathy Memory loss Multiple falls Muscle cramps Need for immunization against influenza Pulmonary embolus with infarction ([facility]) Renal disease S/P deep brain stimulator placement DJD (degenerative joint disease) Staring ep (more content not included)... [facility] 10-14-2024 Note Patient: Andry arthur Procedure Summary Date: 10/14/24 Room / Location: [facility] OPERATING ROOM 03 / [facility] Operating Room Anesthesia Start: 736 Anesthesia Stop: 826 Procedure: DEEP BRAIN STIMULATOR, IPG EXCHANGE Diagnosis: Parkinson's disease, unspecified whether dyskinesia present, unspecified whether manifestations fluctuate (CMS/HCC) (Parkinson's disease, unspecified whether dyskinesia present, unspecified whether manifestations fluctuate (CMS/HCC) [G20.A1]) Surgeons: Richard Arvizu MD Responsible Provider: Apolinar Morgan MD Anesthesia Type: MAC ASA Status: 3 Anesthesia Type: MAC Vitals Value Taken Time BP 105/65 10/14/24824 Temp 36 ???C (96.8 ???F) 10/14/24824 Pulse 55 10/14/24824 Resp 16 10/14/24824 SpO2 93 % 10/14/24824 Anesthesia Post Evaluation Patient location during evaluation: PACU Patient participation: complete - patient participated Level of consciousness: awake and alert Pain management: adequate Airway patency: patent Cardiovascular status: acceptable Respiratory status: acceptable Hydration status: acceptable Comments: Baseline neuro function. Patient is hemodynamically stable and is able to be discharged from PACU per anesthesia protocol. No notable events documented. [facility] 10-14-2024 Note Patient: Andry arthur Procedure Information Date/Time: 10/14/24729 Procedure: DEEP BRAIN STIMULATOR, IPG EXCHANGE - Standard OR Bed, Supine, [employer] REP NOTIFIED 10/04 JK Location: [facility] OPERATING ROOM 03 / [facility] Operating Room Surgeons: Richard Arvizu MD Relevant Problems Anesthesia Previously diagnosed sleep apnea, discontinued CPAP use after significant weight loss. (+) Obstructive sleep apnea syndrome Cardio Recent loop recorder insertion without arrythmia. Denies chest pain. Nonambulatory in setting of parkinson's and demyelinating disease. (+) CHF (congestive heart failure) (CMS/HCC) (+) Chronic deep vein thrombosis (DVT) of proximal vein of both lower extremities (CMS/HCC) (+) DVT (deep venous thrombosis) (CMS/HCC) (+) Essential hypertension Endo DM2 on oral medication. (+) Type 2 diabetes mellitus with hyperglycemia (CMS/HCC) (+) Type 2 diabetes mellitus without complication (CMS/HCC) GI (+) Esophageal reflux /Renal CKD, creatinine 1.87 (+) Acute renal failure (ARF) ([facility]/HCC) (+) CKD (chronic kidney disease) (+) Renal disease Neuro/Psych CIDP, left sided weakness. Right lower extremity 0/5 strength and numb. Relates history of four strokes in the past. (+) 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 ([facility]/HCC) Pulmonary (+) Asthma (+) COPD (chronic obstructive pulmonary disease) (CMS/[facility]) Other History of DVT, on eliquis which has been held. Echocardiogram 08/06/2024: EF 60-65%, mildly elevated right sided pressures. No valvular abnormalities. Stress test 08/10/2024: No ischemic changes Clinical information reviewed: Tobacco Allergies Meds Med Hx Surg Hx Fam Hx Soc Hx Physical Exam Airway Mallampati: II TM distance: >3 FB Neck ROM: full Cardiovascular - normal exam Dental Comments: Poor dentition throughout. Missing and broken teeth. Pulmonary (+) decreased breath sounds Abdominal (+) obese Anesthesia Plan ASA 3 MAC (MAC with standard ASA monitors, GETA if needed as backup. GA would have more risks associated, ie, possible post-op vent, cardiac issues.) The patient is not a current smoker. Patient did not smoke on day of procedure. Education provided regarding risk of obstructive sleep apnea. intravenous induction Postoperative administration of opioids is intended. Anesthetic plan and risks discussed with patient. Use of blood products discussed with patient who consented to blood products. Plan discussed with attending and resident. Additional Equipment Requests [facility] 09-20-2024 Note Neurosurgery Consult Chief Complaint: Deep brain stimulator implanted pulse generator of service. History of Present Illness: Andry Pierre is a 63 y.o. right-handed male who presents in kind referral from Ju Cervantes NP with [facility] neurology in [place] for evaluation of a nonfunctional implanted pulse generator. A portion of his history is obtained from the medical record. Somewhere between 2000 and 2005 he had undergone placement of a left VIM DBS with a left single channel IPG by Dr. Glover, for treatment of essential tremor. He had undergone several IPG exchanges the last of which was in [address] [facility]. In 2019, placement of a right VIM electrode was considered at the [facility] and the patient underwent a substantial workup, but ultimately it was determined that his cardiac risk was prohibitively high. Since that time, the patient's had a number of other neurologic problems including reportedly developing CIDP. He has lost use of his legs and is now wheelchair-bound. Around 5 months ago, he noticed sudden worsening of tremor in the right upper extremity. Since that time, it has been difficult for him to perform activities of daily living with his right upper extremity, which is his dominant hand. The patient was referred to discuss exchange of the implanted pulse generator. He states that his DBS system has not been interrogated or adjusted in some time. The patient is also concerned because he has been told in the past that he had essential tremor but has more recently been told that he may have Parkinson's disease. He is unsure which portions of his current neurologic symptoms may be related to CIDP and which portions may be related to a movement disorder. Of note, he has numerous medical comorbidities including COPD, PAM, history of venous thromboembolism with anticoagulation on Eliquis, and CAD. Problem List: Patient Active Problem List Diagnosis Acute, but ill-defined, cerebrovascular disease Asthma Neuropathy CHF (congestive heart failure) ([facility]) Chronic deep vein thrombosis (DVT) of proximal vein of both lower extremities ([facility]) CKD (chronic kidney disease) Congenital heart disease COPD (chronic obstructive pulmonary disease) ([facility]) History of DVT (deep vein thrombosis) Diastolic dysfunction Difficult intravenous access Dyslipidemia Leg edema Elevated PSA Esophageal reflux Essential hypertension Hematuria, gross Hyperlipidemia Hypokalemia Low back pain BMI 45.0-49.9, adult ([facility]) Obstructive sleep apnea syndrome Other diseases of pharynx, not elsewhere classified(478.29) Parkinson's disease ([facility]) History of pulmonary embolus (PE) Recurrent major depression in partial remission ([facility]) SOB (shortness of breath) Subarachnoid bleed ([facility]) Tracheal stenosis Tremor Type 2 diabetes mellitus without complication ([facility]) Urge incontinence of urine Urinary tract infection without hematuria Volume overload Syncope and collapse 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 ([facility]) Chronic heart failure with preserved ejection fraction ([facility]) Anxiety state Cocaine dependence in remission ([facility]) Disorder of refraction and accommodation Gout History of tracheostomy Hypersomnia with sleep apnea Major depressive disorder, recurrent, moderate ([facility]) Morbid obesity ([facility]) Nondependent cannabis abuse in remission Presbyopia Cellulitis Abdominal pain Acute encephalopathy Acute renal failure (ARF) ([facility]) Altered awareness, transient Altered mental status Bilateral lower extremity edema Bilateral primary osteoarthritis of knee Choledocholithiasis Cholelithiases Chronic anticoagulation 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 Depression Diabetic mononeuropathy associated with diabetes mellitus due to underlying condition ([facility]) Diabetic neuropathy ([facility]) DVT (deep venous thrombosis) ([facility]) Dysphagia Encounter for chronic pain management Equinus contracture of right ankle History of hematemesis History of stroke Irritable bowel syndrome Lumbar facet arthropathy Lumbar radiculopathy Memory loss Multiple falls Muscle cramps Need for immunization against influenza Pulmonary embolus with infarction ([facility]) Renal disease S/P deep brain stimulator placement DJD (degenerative joint disease) Staring episodes Stroke risk Tracheostomy in place ([facility]) Type 2 diabetes mellitus with hyperglycemia ([facility]) Type II or unspecified type diabetes mellitus with renal manifestations, not stated as uncontrolled(250.40) Weakness Fall Diabetes mellitus ([facility]) Acute on chronic diastolic heart failure ([facility]) Other chest pain Past Medical History: Past Medical History: Diagnosis Date CHF (congestive heart failure) ([facility]) (more content not included)... [facility] 08-12-2024 Telephone encounter Note Patient called in stating he talked to hospital regarding referral for battery change and they did not receive. I re-faxed this successfully, as well as the AFO braces order to [facility] as he has not heard from them either. Patient states the Oxycodone and Trileptal are not helping with his pain - if there is anything you can suggest or prescribe to help please advise. [facility] 08-12-2024 Miscellaneous Notes Patient called in stating he talked to hospital regarding referral for battery change and they did not receive. I re-faxed this successfully, as well as the AFO braces order to [facility] as he has not heard from them either. Patient states the Oxycodone and Trileptal are not helping with his pain - if there is anything you can suggest or prescribe to help please advise. documented in this encounter [facility] 08-03-[address] Crespo- alba pedraza. I used abnormal CXR for pulmonary referral. Thanks. [facility] 07-30-2024 History of Present illness Narrative Images [...] reflexes: Roshni's absent. Ankle clonus absent. Coordination Ylgjih-rk-axgq, rapid alternating movements and dyfy-jw-clfc normal bilaterally without dysmetria. Gait Normal casual, toe, heel and tandem gait. Romberg is absent. PROCEDURE: NONE ASSESSMENT AND PLAN: Diagnoses and all orders for this visit: CIDP (chronic inflammatory demyelinating polyneuropathy) ([facility]) - OXcarbazepine (Trileptal) 150 MG [...] (CVA) due to embolism of cerebral artery ([facility]) - OXcarbazepine (Trileptal) 150 MG tablet; Take 0.5 tablets (75 mg) by mouth in the morning and 0.5 tablets (75 mg) in the evening and 0.5 tablets (75 mg) before bedtime. Bilateral foot-drop - General supply request: Bilateral AFO braces I will send in order for bilateral AFO brace to [facility]. Follow up 8-12 weeks. documented in this encounter [facility] 07-26-2024 Note [place] [facility] Note Reason for cardiology [...] unit) capsule, Take (more content not included)... [facility] 07-13-2024 Note Pt is here for a thr ee month follow up. [place] [facility] Consult Note Reason for Consultation: Syncope, s/p loop implant 01/09/23 07/13/24 Patient had a loop check done which revealed multiple episodes of bradycardia but no atrial fibrillation was seen. He is limited by his LE and UE weakness from CIDP and unable to tolerate infusion treatment. 10/21/23 Telephone apt today for follow up [facility] for chest pain. He was seen [...] reveals no events. Had recent ECHO at [place] which was normal. LOOP: ECHO 10/08/23 08/19/23: [...] in the morning and at bedtime. HYDROcodone-acetaminophen ([place]) 5-325 mg tablet indomethacin (Indocin) 50 mg capsule TAKE 1 CAPSULE BY MOUTH THREE TIMES A DAY NEEDED FOR PAIN WITH FOOD OR MILK insulin degludec (Tresiba FlexTouch) 100 unit/mL (3 mL) injection every 12 (twelve) hours. Jardiance 10 mg Take 25 mg by mouth 1 (one) (more content not included)... [facility] 06-21-2024 History of Present illness Narrative Images from the original note were not included. CHIEF COMPLAINT REASON FOR VISIT : HPI: Andry Pierre is a 63 y.o. male who presents for phone visit and is at home for this and does consent for na telephone interview CURRENT MEDICATIONS: ALLERGIES/DISCONTINUE MEDICATIONS Current Outpatient Medications Medication Instructions amitriptyline (ELAVIL) 25 mg, Oral, Nightly atorvastatin (Lipitor) 40 MG tablet 1 tablet, Oral, Daily baclofen (LIORESAL) 10 mg, Oral, 3 times daily biotin 10 mg, Oral, 2 times daily (05/21) Blood Glucose Monitoring Suppl (Accu-Chek Guide Me) w/Device kit USE DIRECTED DAILY candesartan (ATACAND) 8 mg, Oral, Daily cetirizine (ZyrTEC) 10 MG tablet 1 tablet, Oral, Daily cloNIDine (CATAPRES) 0.05 mg, Oral, 2 times daily cyproheptadine (PERIACTIN) 2 mg, Oral, Nightly, Start night prior to IVIG infusion and take daily for 7 days after dexAMETHasone (DECADRON) 2 mg, Oral, 2 times [...] MEQ ER tablet 20 mEq, Oral, Daily thiamine (VITAMIN B-1) 100 mg, Oral, 2 times daily (05/21) topiramate (TOPAMAX) 200 mg, Oral, 2 times daily Tresiba FlexTouch 60 Units, Subcutaneous Allergies Allergen Reactions Beta Adrenergic Blockers Other Reaction(s): headaches, nausea Diazepam Other and Unknown Was on the ground after took it Gabapentin Other and Unknown Hydralazine Headache, nausea, sick Medications Discontinued During This Encounter Medication Reason thiamine (Vitamin B-1) 100 MG tablet Reorder biotin 10 MG capsule Reorder PAST MEDICAL HISTORY: SURGICAL/SOCIAL/FAMILY HISTORY DEPRESSION SCREEN: [...] 0 REVIEW OF SYMPTOMS: Review of Systems OBJECTIVE: 05/28/2024 10:57 AM 03/24/2024 8:45 AM 01/06/2024 9:04 AM Vitals BMI 53.46 kg/m2 53.46 kg/m2 BSA (m2) 2.83 m2 2.83 m2 Systolic 144 122 Diastolic 88 80 Height (in) 5' 9 5' 9 Visit Report Report Report Report EXAM: Neurological Exam PROCEDURE: NONE ASSESSMENT AND PLAN: Diagnoses and all orders for this visit: Diabetic mononeuropathy associated with diabetes mellitus due to underlying condition ([facility]) CIDP (chronic inflammatory demyelinating polyneuropathy) ([facility]) - thiamine (Vitamin B-1) 100 MG tablet; Take 1 tablet (100 mg) by mouth in the morning and in the evening - biotin 10 MG capsule; Take 1 capsule (10 mg) by mouth in the morning and in the evening - dexAMETHasone (Decadron) 2 MG tablet; Take 1 tablet (2 mg) by mouth in the morning and 1 tablet (2 mg) in the evening. Take with meals. Do all this for 10 days. -I counseled the patient on the possible side effects and interactions of medications. documented in this encounter [facility] 06-02-2024 Note HPI Reported by patient, [...] Follow up with Dr Davies after EMG [facility] 05-28-2024 History of Present illness Narrative Images from the original note were not included. CHIEF COMPLAINT REASON FOR VISIT: CIDP, weakness, numbness, tremor, hx of stroke, back pain HPI: Andry Pierre is a 63 y.o. male who presents for a follow up. He states he did not do good with the IVIG infusion. States it took him 4 days to start feeling a little better. He states he felt like everything drained out of him. He states that he felt like he was dying. He states it has been about a month. He states he feels like he is losing strength. States he is in a lot of pain. He cannot do anything with his left leg. He states his left knee goes out on him. He does usually wear a brace. He states if he goes to take a shower or anything it will go out on him. He is in a power wheel chair today. He has been using it for about 3 weeks. Which does help him with mobility. 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 He states all his fingers are numb. He states he recently stopped the Topamax about 3 weeks ago. But he states he is back on it. He states he has burning and tingling in his feet. He states he got bit by a spider about 3 years ago and he has a [place] around it and pain. He states everything else started around July last year. He states he has been getting worse. 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 The steroids do help with the pain. But he did take one this morning and he still has pain. States he fell off a scaffold back in and he states he cannot lay flat in bed. He has to sleep in a recliner. He states he did have a couple injections in the past for his back. States he did make an appt for next week to see a spine surgeon. He states his vision is going bad fast. He states he cannot stand for any long period of time or even sitting for a long period of time due to the severity of the back pain. CURRENT MEDICATIONS: ALLERGIES/DISCONTINUE MEDICATIONS Current Outpatient Medications [...] (CATAPRES) 0.05 mg, Oral, 2 times daily cyproheptadine (PERIACTIN) 2 mg, Oral, Nightly, Start night prior to IVIG infusion and take daily for 7 days after dexAMETHasone (DECADRON) 2 mg, Oral, 2 times [...] hr tablet 1 tablet, Oral, Daily ondansetron (ZOFRAN) 4 mg, Oral, Every 8 hours PRN ondansetron ODT (ZOFRAN-ODT) 4 mg, Oral, Every [...] Heart attack Father Kidney disease Father Depression: At risk (11/04/2023) [facility] PHQ-2 PHQ-2 score: 4 REVIEW OF SYMPTOMS: Review of Systems Constitutional: Negative for chills, diaphoresis, fatigue and fever. HENT: Negative for ear pain, tinnitus and trouble swallowing. Eyes: Negative for photophobia and visual disturbance. Respiratory: Negative for cough and shortness of breath. Cardiovascular: Negative for palpitations and leg swelling. Gastrointestinal: Negative for abdominal pain and nausea. Genitourinary: Negative for difficulty urinating and urgency. Musculoskeletal: Positive for back pain and gait problem. Negative for arthralgias, myalgias, neck pain and neck stiffness. Neurological: Positive for weakness and numbness. Negative for tremors and light-headedness. Psychiatric/Behavioral: Positive for sleep disturbance. Negative for agitation, confusion and suicidal ideas. OBJECTIVE: 05/28/2024 10:57 AM 03/24/2024 8:45 AM 01/06/2024 9:04 AM Vitals BMI 53.46 kg/m2 53.46 kg/m2 BSA (m2) 2.83 m2 2.83 m2 Systolic 144 122 Diastolic 88 80 Height (in) 5' 9 5' 9 Visit Report Report Report Report EXAM: Neurological [...] reflexes: Roshni's absent. Ankle clonus absent. Coordination Lpogwa-zg-cjfj, rapid alternating movements and patu-fw-ghmv normal bilaterally without dysmetria. Gait Normal casual, toe, heel and tandem gait. Romberg is absent. PROCEDURE: NONE ASSESSMENT AND PLAN: Diagnoses and all orders for this visit: CIDP (chronic inflammatory demyelinating polyneuropathy) ([facility]) Start thiamine (Vitamin B-1) 100 MG tablet; Take 1 tablet (100 mg) by mouth Daily Start biotin 10 MG capsule; Take 1 capsule (10 mg) by mouth Daily Total time 20 minutes spent reviewing records, performing medically appropriate exam, counseling , education, ordering medication, tests, and/or procedures, documenting health information into the health record, communicating results to the patient, and coordinating care. Follow up documented in this encounter [facility] 01-29-2024 Miscellaneous Notes Primary care or clinic needs to prescribe this, not the ortho surgeon [facility] Telephone encounter Note Primary care or clinic needs to prescribe this, not the ortho surgeon [facility] Work Phone: 12-08-2023 History of Present illness Narrative Called report to Bee at [facility] at [phone]. Answered all questions and advised that the patient will be leaving here around 8:00 PM tonight. Attempted to call report to [facility] at [phone]. Was on hold for over 10 minutes. Images from the original note were not included. [facility] Office: [phone] Alberto Rice DO, Luciano Murphy DO, Humza [...] Gray CNP, Lefty Matute CNP, Brittny Quinones, [place], Kacey Meeks CNP, Sugey Barillas, MARBLE MACHINE TENDER, Mary Jo Bonner, MARBLE MACHINE TENDER, Jodi Granados, MARBLE MACHINE TENDER, Sigrid Velásquez, MARBLE MACHINE TENDER, KATHRIN McmillanC, KATHRIN MercedesC, Savi Iqbal MARBLE MACHINE TENDER, Beckie Mello MARBLE MACHINE TENDER, Nora Mace, MARBLE MACHINE TENDER, Jyoti Rojo, BATTERY ENGINEER, Ronda Sellers, MARBLE MACHINE TENDER, Janell Hoyt MARBLE MACHINE TENDER, Caryl Gonzalez MARBLE MACHINE TENDER [facility] IN-PATIENT SERVICE [facility] Progress Note 12/08/2023 3:35 PM Name: Andry Pierre Acct: [id number] Room: 0143/0143-01 Day: 9 Admit Date: 11/29/2023 8:06 PM [...] brain stimulator 10/2008 who initially presented to [facility] 11/24 s/p fall in bathroom with acute left hip/upper thigh and back pain (hit head, no LOC) presents with No chief complaint on file. and is admitted to the hospital for the management of AMS (altered mental status). Patient transferred from [place] after undergoing tilt table evaluation for concern for orthostasis on 11/28/2022 with history of recurrent episodes of dizziness with history of stroke, complicated history. tilt table test complicated by worsening acute symptoms of dizziness with chest pain with altered sensorium. Although tilt test unremarkable for orthostasis, patient was evaluated in ED with acute symptoms and recommended admission pending transfer to [facility] for neurology evaluation. Unfortunately with [...] with occasional shortness of breath While in [place] ED patient did develop symptomatic hypoglycemia with blood sugars in the 50s with symptoms of feeling funny . Status post treatment per hypoglycemia protocol S/p multiple admissions recently at [place] for recurrent stroke like symptoms with dizziness and orthostasis with chest pain, SOB, worsening aphasia x2-3 weeks [employer]. Subsequently returned status post fall 11/24 with [...] Asthma, CHF (congestive heart failure) ([facility]), CKD (chronic kidney disease) stage 2, GFR 60-89 ml/min, Clotting disorder ([facility]), Congenital heart disease, COPD (chronic obstructive pulmonary disease) ([facility]), Depression, Emphysema of lung ([facility]), GERD (gastroesophageal reflux disease), GERD [...] 03:20 PM PO2ART 92.5 08/22/2011 03:20 PM [id number] 26.0 08/22/2011 03:20 PM NBEA NOT REPORTED 08/22/2011 03:20 PM PBEA 1.8 08/22/2011 03:20 PM [id number] 95.6 08/22/2011 03:20 PM FIO2 INFORMATION NOT PROVIDED 11/30/2023 12:05 AM Lab Results Component Value Date/Time SPECIAL NOT REPORTED 10/20/2012 10:15 AM SPECIAL NOT REPORTED 10/20/2012 10:15 AM Lab Results Component Value Date/Time CULTURE NO GROWTH 10/20/2012 10:15 AM CULTURE 10/20/2012 10:15 AM Performed at [place] [id number] Radiology: XR CHEST (2 VW) Result Date: [...] disease (CKD), stage III (moderate) ([facility]) 11/30/2023 Yes Generalized weakness 12/02/2023 Yes CHF (congestive heart failure) ([facility]) 11/30/2023 Yes Uncontrolled hypertension 11/30/2023 [...] disease (CKD), stage III (moderate) ([facility]) Generalized weakness CHF (congestive heart failure) ([facility]) Uncontrolled hypertension Dysphagia GERD (gastroesophageal [...] 2 units and then adjust accordingly Recurrent WNIx-PAXv-vbhtzn neurology plan History of prothrombin gene mutation with prior DVT-continue Coumadin CKD stage III-continue to monitor creatinine and will need follow-up with nephrology/PCP PAM on CPAP Hx of dvt: on coumadin. Pharmacy managing Discharge planning after the above workup Lori Leblanc MD 12/08/2023 3:35 PM Physical Therapy Facility/Department: [address] [place] Physical Therapy Treatment Note Name: Andry Pierre : 1960 Date of Service: 12/08/2023 Discharge Recommendations: Patient would benefit from continued therapy after discharge PT Equipment Recommendations Equipment Needed: No Other: Pt owns walker, cane and walker Patient Diagnosis(es): There were no encounter diagnoses. Past Medical History: has a past medical history of Arthritis, Asthma, CHF (congestive heart failure) ([facility]), CKD (chronic kidney disease) stage 2, GFR 60-89 ml/min, Clotting disorder ([facility]), Congenital heart disease, COPD (chronic obstructive pulmonary disease) ([facility]), Depression, Emphysema of lung ([facility]), GERD (gastroesophageal reflux disease), GERD (gastroesophageal reflux disease), Gout, Headache(784.0), Hernia, Hernia, History of blood clots, History of DVT (deep vein thrombosis), Hyperlipidemia, Insomnia, Irritable bowel syndrome, Kidney stones, Lumbar degenerative disc disease, Lumbar radiculopathy, Obesity, PAM (obstructive sleep apnea), Parkinson disease, Parkinson's disease, Post traumatic stress disorder, Renal disease, Rheumatoid arthritis ([facility]), Stroke ([facility]), Stroke risk, Tracheostomy in place ([facility]), Tremors of nervous system, Type [...] abduction/adduction, heel/toe raises, and marches Reps 20 AM-[facility] - Mobility AM-[facility] Basic Mobility - Inpatient How much help [...] 3-5 steps with a railing?: [facility] Raw Score : 15 AM-[facility] Inpatient T-Scale Score : 39.45 Mobility Inpatient [...] other days (per medication management clinic in [place], last visit 11/11; clinic noted recent dose [...] other days (per medication management clinic in [place], last visit 11/11; clinic noted recent dose [...] from the original note were not included. [facility] Office: [phone] Alberto Rice DO, Luciano Murphy DO, Humza [...] Matute CNP, Brittny Quinones, COLTON, Kacey Meeks, MARBLE MACHINE TENDER, Sugey Barillas, MARBLE MACHINE TENDER, Mary Jo Bonner MARBLE MACHINE TENDER, Jodi Granados, MARBLE MACHINE TENDER, Sigrid Velásquez MARBLE MACHINE TENDER, KATHRIN McmillanC, KATHRIN MercedesC, Savi Iqbal MARBLE MACHINE TENDER, Beckie Mello MARBLE MACHINE TENDER, Nora Mace, MARBLE MACHINE TENDER, Jyoti Rojo, BATTERY ENGINEER, Ronda Sellers, MARBLE MACHINE TENDER, Janell Hoyt CNP, Caryl Gonzalez, MARBLE MACHINE TENDER [facility] IN-PATIENT SERVICE [facility] Progress Note 12/07/2023 9:05 AM Name: Andry Pierre Acct: [id number] Room: 0143/0143-01 Day: 8 Admit Date: 11/29/2023 [...] brain stimulator 10/2008 who initially presented to [facility] 11/24 s/p fall in bathroom with acute left hip/upper thigh and back pain (hit head, no LOC) presents with No chief complaint on file. and is admitted to the hospital for the management of AMS (altered mental status). Patient transferred from [place] after undergoing tilt table evaluation for concern for orthostasis on 11/28/2022 with history of recurrent episodes of dizziness with history of stroke, complicated history. tilt table test complicated by worsening acute symptoms of dizziness with chest pain with altered sensorium. Although tilt test unremarkable for orthostasis, patient was evaluated in ED with acute symptoms and recommended admission pending transfer to [facility] for neurology evaluation. Unfortunately with [...] with occasional shortness of breath While in [place] ED patient did develop symptomatic hypoglycemia with blood sugars in the 50s with symptoms of feeling funny . Status post treatment per hypoglycemia protocol S/p multiple admissions recently at [place] for recurrent stroke like symptoms with dizziness and orthostasis with chest pain, SOB, worsening aphasia x2-3 weeks [employer]. Subsequently returned status post fall 11/24 with [...] Asthma, CHF (congestive heart failure) ([facility]), CKD (chronic kidney disease) stage 2, GFR 60-89 ml/min, Clotting disorder ([facility]), Congenital heart disease, COPD (chronic obstructive pulmonary disease) ([facility]), Depression, Emphysema of lung ([facility]), GERD (gastroesophageal reflux disease), GERD [...] 03:20 PM PO2ART 92.5 08/22/2011 03:20 PM TRY6XPS 26.0 08/22/2011 03:20 PM NBEA NOT REPORTED 08/22/2011 03:20 PM PBEA 1.8 08/22/2011 03:20 PM [id number] 95.6 08/22/2011 03:20 PM FIO2 INFORMATION NOT PROVIDED 11/30/2023 12:05 AM Lab Results Component Value Date/Time SPECIAL NOT REPORTED 10/20/2012 10:15 AM SPECIAL NOT REPORTED 10/20/2012 10:15 AM Lab Results Component Value Date/Time CULTURE NO GROWTH 10/20/2012 10:15 AM CULTURE 10/20/2012 10:15 AM Performed at [address] [id number] Radiology: XR CHEST (2 VW) [...] 2 units and then adjust accordingly Recurrent IVOt-VGRx-epcewq neurology plan History of prothrombin gene mutation with prior DVT-continue Coumadin CKD stage III-continue to monitor creatinine and will need follow-up with nephrology/PCP PAM on CPAP Hx of dvt: on coumadin. Pharmacy managing Discharge planning after the above workup Lori Leblanc MD 12/07/2023 9:05 AM Images from the original note were not included. [facility] Office: [phone] Alebrto Rice DO, Luciano Murphy DO, Humza James [...] Quinones DNP, Kacey Meeks CNP, Sugey Barillas, MARBLE MACHINE TENDER, Mary Jo Bonner MARBLE MACHINE TENDER, Jodi Granados CNP, Sigrid Velásquez MARBLE MACHINE TENDER, aJnine Turpin PA-C, Sue Willams PA-C, Savi Iqbal MARBLE MACHINE TENDER, Beckie Mello, MARBLE MACHINE TENDER, Nora Mace, MARBLE MACHINE TENDER, Jyoti Rojo, BATTERY ENGINEER, Ronda Sellers, MARBLE MACHINE TENDER, Janell Hoyt, MARBLE MACHINE TENDER, Caryl Gonzalez, MARBLE MACHINE TENDER [facility] IN-PATIENT SERVICE [facility] Progress Note 12/06/2023 1:56 PM Name: Andry Pierre Acct: [id number] Room: [address] [place] [address] IP Day: 7 Admit Date: 11/29/2023 8:06 [...] brain stimulator 10/2008 who initially presented to [facility] 11/24 s/p fall in bathroom with acute left hip/upper thigh and back pain (hit head, no LOC) presents with No chief complaint on file. and is admitted to the hospital for the management of AMS (altered mental status). Patient transferred from [place] after undergoing tilt table evaluation for concern for orthostasis on 11/28/2022 with history of recurrent episodes of dizziness with history of stroke, complicated history. tilt table test complicated by worsening acute symptoms of dizziness with chest pain with altered sensorium. Although tilt test unremarkable for orthostasis, patient was evaluated in ED with acute symptoms and recommended admission pending transfer to [facility] for neurology evaluation. Unfortunately with [...] with occasional shortness of breath While in [place] ED patient did develop symptomatic hypoglycemia with blood sugars in the 50s with symptoms of feeling funny . Status post treatment per hypoglycemia protocol S/p multiple admissions recently at [place] for recurrent stroke like symptoms with dizziness and orthostasis with chest pain, SOB, worsening aphasia x2-3 weeks [employer]. Subsequently returned status post fall 11/24 with [...] Asthma, CHF (congestive heart failure) ([facility]), CKD (chronic kidney disease) stage 2, GFR 60-89 ml/min, Clotting disorder ([facility]), Congenital heart disease, COPD (chronic obstructive pulmonary disease) ([facility]), Depression, Emphysema of lung ([facility]), GERD (gastroesophageal reflux disease), GERD [...] 03:20 PM PO2ART 92.5 08/22/2011 03:20 PM [id number] 26.0 08/22/2011 03:20 PM NBEA NOT REPORTED 08/22/2011 03:20 PM PBEA 1.8 08/22/2011 03:20 PM [id number] 95.6 08/22/2011 03:20 PM FIO2 INFORMATION NOT PROVIDED 11/30/2023 12:05 AM Lab Results Component Value Date/Time SPECIAL NOT REPORTED 10/20/2012 10:15 AM SPECIAL NOT REPORTED 10/20/2012 10:15 AM Lab Results Component Value Date/Time CULTURE NO GROWTH 10/20/2012 10:15 AM CULTURE 10/20/2012 10:15 AM Performed at [address] [id number] Radiology: XR CHEST (2 VW) Result Date: [...] 2 units and then adjust accordingly Recurrent OJFg-PTZe-dkyjuj neurology plan History of prothrombin gene mutation with prior DVT-continue Coumadin CKD stage III-continue to monitor creatinine and will need follow-up with nephrology/PCP PAM on CPAP Discharge planning after the above workup Lori Leblanc MD 12/06/2023 1:56 PM Pharmacy Note Warfarin Consult follow-up Warfarin dose prior to admission: 17.5 mg Sun, 15 mg all other days (per medication management clinic in [place], last visit 11/11; clinic noted recent dose [...] other days (per medication management clinic in [place], last visit 11/11; clinic noted recent dose [...] inpatient. Nolan Mccarty PharmD, 12/05/2023 2:41 PM [employer] ALL NOTES Speech Language Pathology [facility] Cognitive Treatment Note Date: 12/05/2023 Patient s Name: Andry Pierre Diagnosis: Patient Active Problem List Diagnosis Code COPD (chronic obstructive pulmonary disease) ([facility]) J44.9 PAM (obstructive sleep apnea) G47.33 Obesity, morbid ([facility]) E66.01 Lumbar degenerative disc disease M51.36 Lumbar radiculopathy M54.16 Lumbar facet arthropathy M47.816 Osteoarthritis of both knees M17.0 Diabetic neuropathy ([facility]) E11.40 Morbid obesity ([facility]) E66.01 Sleep apnea, obstructive G47.33 Encounter for medication monitoring Z51.81 Chronic kidney disease (CKD), stage III (moderate) ([facility]) N18.30 Hyperkalemia E87.5 Generalized weakness R53.1 Pill rolling tremor R25.1 Muscle cramps R25.2 Acute renal failure (ARF) ([facility]) N17.9 Type II or unspecified type diabetes mellitus without mention of complication, not stated as uncontrolled E11.9 Depression F32.A Irritable bowel syndrome K58.9 Obesity E66.9 CHF (congestive heart failure) ([facility]) I50.9 Parkinson disease G20.A1 Tremors of nervous system R25.[address] ([facility]) Z93.0 Bilateral lower extremity edema R60.0 CKD (chronic kidney disease) N18.9 Uncontrolled hypertension I10 Dysphagia R13.10 Hyperlipidemia E78.5 History of DVT (deep vein thrombosis) Z86.718 Congenital heart disease Q24.9 Emphysema of lung ([facility]) J43.9 Hernia K46.9 Stroke risk Z91.89 GERD (gastroesophageal reflux disease) K21.9 Asthma J45.909 Renal disease N28.9 Gout M10.9 S/P deep brain stimulator placement Z96.89 Parkinsons G20.A1 CKD (chronic kidney disease) stage 2, GFR 60-89 ml/min N18.2 Type II or unspecified type diabetes mellitus with renal manifestations, not stated as uncontrolled(250.40) E11.29 Encounter for chronic pain management G89.29 Weight loss, intentional [id number] 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 Completed by Tess Robert Photography Teacher Clinician Co-signed by Jodi Rivera M.A.CCC/[employer] Occupational Therapy Facility/Department: [address] [facility] Occupational Therapy Daily Treatment Note Name: Andry Pierre : 1960 Date of Service: 12/05/2023 Discharge Recommendations: Patient would benefit from continued therapy after discharge OT Equipment Recommendations ADL Assistive Devices: Shower Chair with back Other: weighted utensils Patient Diagnosis(es): There were no encounter diagnoses. Past Medical History: has a past medical history of Arthritis, Asthma, CHF (congestive heart failure) ([facility]), CKD (chronic kidney disease) stage 2, GFR 60-89 ml/min, Clotting disorder ([facility]), Congenital heart disease, COPD (chronic obstructive pulmonary disease) ([facility]), Depression, Emphysema of lung ([facility]), GERD (gastroesophageal reflux disease), GERD (gastroesophageal reflux disease), Gout, Headache(784.0), Hernia, Hernia, History of blood clots, History of DVT (deep vein thrombosis), Hyperlipidemia, Insomnia, Irritable bowel syndrome, Kidney stones, Lumbar degenerative disc disease, Lumbar radiculopathy, Obesity, PAM (obstructive sleep apnea), Parkinson disease, Parkinson's disease, Post traumatic stress disorder, Renal disease, Rheumatoid arthritis ([facility]), Stroke ([facility]), Stroke risk, Tracheostomy in place ([facility]), Tremors of nervous system, Type [...] Pt engaged in weight-shifting while standing and raulitoo'amy difficulty lifting L foot off of floor d/t increased pain in R foot when weight-shifting.) Transfer Training Transfer Training: Yes Overall Level of Assistance: Additional time;Adaptive equipment;Maximum assistance;Assist X1 (Pt completed STS w/ RW from chair MAX A x1. 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 [facility] Office: [phone] Alberto Rice DO, Luciano Murphy DO, Humza James DO, Jc Maria DO, Nancy Paz MD, Naz Cruz MD, Demetrio Patel MD, Hortensia Maynard MD, Filiberto Vizcaino MD, Polyl Ramos MD, Julia Blanco MD, Bibi Kim [...] CNP, Criss Gray CNP, Lefty Matute CNP, Brittyn Quinones DNP, Kacey Meeks MARBLE MACHINE TENDER, Sugey Barillas CNP, Mary Jo Bonner CNP, Jodi Granados MARBLE MACHINE TENDER, Sigrid Velásquez, MARBLE MACHINE TENDER, Janine Turpin, PA-C, Sue Willams, PA-C, Savi Iqbal, MARBLE MACHINE TENDER, Beckie Mello, MARBLE MACHINE TENDER, Nora Mace, MARBLE MACHINE TENDER, Jyoti Rojo, BATTERY ENGINEER, Ronda Sellers, MARBLE MACHINE TENDER, Janell Hoyt, MARBLE MACHINE TENDER, Caryl Gonzalez, MARBLE MACHINE TENDER [facility] IN-PATIENT SERVICE [facility] Progress Note 12/05/2023 8:58 AM Name: Andry Pierre Acct: [id number] Room: 0143/0143-01 IP Day: 6 Admit Date: [...] brain stimulator 10/2008 who initially presented to [facility] 11/24 s/p fall in bathroom with acute left hip/upper thigh and back pain (hit head, no LOC) presents with No chief complaint on file. and is admitted to the hospital for the management of AMS (altered mental status). Patient transferred from [place] after undergoing tilt table evaluation for concern for orthostasis on 11/28/2022 with history of recurrent episodes of dizziness with history of stroke, complicated history. tilt table test complicated by worsening acute symptoms of dizziness with chest pain with altered sensorium. Although tilt test unremarkable for orthostasis, patient was evaluated in ED with acute symptoms and recommended admission pending transfer to [facility] for neurology evaluation. Unfortunately with [...] with occasional shortness of breath While in [place] ED patient did develop symptomatic hypoglycemia with blood sugars in the 50s with symptoms of feeling funny . Status post treatment per hypoglycemia protocol S/p multiple admissions recently at [place] for recurrent stroke like symptoms with dizziness and orthostasis with chest pain, SOB, worsening aphasia x2-3 weeks [employer]. Subsequently returned status post fall 11/24 with [...] Asthma, CHF (congestive heart failure) ([facility]), CKD (chronic kidney disease) stage 2, GFR 60-89 ml/min, Clotting disorder ([facility]), Congenital heart disease, COPD (chronic obstructive pulmonary disease) ([facility]), Depression, Emphysema of lung ([facility]), GERD (gastroesophageal reflux disease), GERD (gastroesophageal reflux disease), Gout, Headache(784.0), Hernia, Hernia, History of blood clots, History of DVT (deep vein thrombosis), Hyperlipidemia, Insomnia, Irritable bowel syndrome, Kidney stones, Lumbar degenerative disc disease, Lumbar radiculopathy, Obesity, PAM (obstructive sleep apnea), Parkinson disease, Parkinson's disease, Post traumatic stress disorder, Renal disease, Rheumatoid arthritis ([facility]), Stroke ([facility]), Stroke risk, Tracheostomy in place ([facility]), Tremors of nervous system, Type [...] 03:20 PM PO2ART 92.5 08/22/2011 03:20 PM [id number] 26.0 08/22/2011 03:20 PM NBEA NOT REPORTED 08/22/2011 03:20 PM PBEA 1.8 08/22/2011 03:20 PM [id number] 95.6 08/22/2011 03:20 PM FIO2 INFORMATION NOT PROVIDED 11/30/2023 12:05 AM Lab Results Component Value Date/Time SPECIAL NOT REPORTED 10/20/2012 10:15 AM SPECIAL NOT REPORTED 10/20/2012 10:15 AM Lab Results Component Value Date/Time CULTURE NO GROWTH 10/20/2012 10:15 AM CULTURE 10/20/2012 10:15 AM Performed at [facility] [address] [place] [id number] Radiology: XR CHEST (2 VW) Result Date: [...] disease (CKD), stage III (moderate) ([facility]) 11/30/2023 Yes Generalized weakness 12/02/2023 Yes CHF (congestive heart failure) ([facility]) 11/30/2023 Yes Uncontrolled hypertension 11/30/2023 [...] disease (CKD), stage III (moderate) ([facility]) Generalized weakness CHF (congestive heart failure) ([facility]) Uncontrolled hypertension Dysphagia GERD (gastroesophageal [...] 2 units and then adjust accordingly Recurrent PVRn-OYKt-tfvhbi neurology plan History of prothrombin gene mutation with prior DVT-continue Coumadin CKD stage III-continue to monitor creatinine and will need follow-up with nephrology/PCP PAM on CPAP Discharge planning after the above workup Lori Leblanc MD 12/05/2023 8:58 AM Images from the original note were not included. [facility] Office: [phone] Alberto Rice DO, Luciano Murphy DO, Humza [...] DO, Tk Connor DO, Jess Parker MD, Gartet Valentine MD, Rosalia Mobley CNP, Criss Gray CNP, Lefty Matute CNP, Brittny Quinones DNP, Kacey Meeks CNP, Sugey Barillas CNP, Mayr Jo Bonner CNP, Jodi Granados CNP, Sigrid Velásquez MARBLE MACHINE TENDER, Janine Turpin, KATHRINC, Sue Willams, PARolfC, Savi Iqbal, MARBLE MACHINE TENDER, Beckie Mello, MARBLE MACHINE TENDER, Nora Mace, MARBLE MACHINE TENDER, Jyoti Rojo, ANICETO, Ronda eSllers, SHERYL, Janell Hoyt, SHERYL, Caryl Gonzalez, MARBLE MACHINE TENDER [facility] IN-PATIENT SERVICE [facility] Progress Note 12/04/2023 2:59 PM Name: Andry Pierre Acct: [id number] Room: 0143/0143-01 Day: 5 Admit Date: 11/29/2023 [...] brain stimulator 10/2008 who initially presented to [facility] 11/24 s/p fall in bathroom with acute left hip/upper thigh and back pain (hit head, no LOC) presents with No chief complaint on file. and is admitted to the hospital for the management of AMS (altered mental status). Patient transferred from [place] after undergoing tilt table evaluation for concern for orthostasis on 11/28/2022 with history of recurrent episodes of dizziness with history of stroke, complicated history. tilt table test complicated by worsening acute symptoms of dizziness with chest pain with altered sensorium. Although tilt test unremarkable for orthostasis, patient was evaluated in ED with acute symptoms and recommended admission pending transfer to [facility] for neurology evaluation. Unfortunately with [...] with occasional shortness of breath While in [place] ED patient did develop symptomatic hypoglycemia with blood sugars in the 50s with symptoms of feeling funny . Status post treatment per hypoglycemia protocol S/p multiple admissions recently at [place] for recurrent stroke like symptoms with dizziness and orthostasis with chest pain, SOB, worsening aphasia x2-3 weeks [employer]. Subsequently returned status post fall 11/24 with [...] Asthma, CHF (congestive heart failure) ([facility]), CKD (chronic kidney disease) stage 2, GFR 60-89 ml/min, Clotting disorder ([facility]), Congenital heart disease, COPD (chronic obstructive pulmonary disease) ([facility]), Depression, Emphysema of lung ([facility]), GERD (gastroesophageal reflux disease), GERD (gastroesophageal reflux disease), Gout, Headache(784.0), Hernia, Hernia, History of blood clots, History of DVT (deep vein thrombosis), Hyperlipidemia, Insomnia, Irritable bowel syndrome, Kidney stones, Lumbar degenerative disc disease, Lumbar radiculopathy, Obesity, PAM (obstructive sleep apnea), Parkinson disease, Parkinson's disease, Post traumatic stress disorder, Renal disease, Rheumatoid arthritis ([facility]), Stroke ([facility]), Stroke risk, Tracheostomy in place ([facility]), Tremors of nervous system, Type [...] 03:20 PM PO2ART 92.5 08/22/2011 03:20 PM [id number] 26.0 08/22/2011 03:20 PM NBEA NOT REPORTED 08/22/2011 03:20 PM PBEA 1.8 08/22/2011 03:20 PM [id number] 95.6 08/22/2011 03:20 PM FIO2 INFORMATION NOT PROVIDED 11/30/2023 12:05 AM Lab Results Component Value Date/Time SPECIAL NOT REPORTED 10/20/2012 10:15 AM SPECIAL NOT REPORTED 10/20/2012 10:15 AM Lab Results Component Value Date/Time CULTURE NO GROWTH 10/20/2012 10:15 AM CULTURE 10/20/2012 10:15 AM Performed at [facility] [address] [address] Radiology: XR CHEST (2 VW) Result Date: [...] disease (CKD), stage III (moderate) ([facility]) 11/30/2023 Yes Generalized weakness 12/02/2023 [...] 2 units and then adjust accordingly Recurrent OIDe-JYLs-twrjqg neurology plan History of prothrombin gene mutation with prior DVT-continue Coumadin CKD stage III-continue to monitor creatinine and will need follow-up with nephrology/PCP PAM on CPAP Discharge planning after the above workup Lori Leblanc MD 12/04/2023 2:59 PM Peer to peer completed on 12/04/2023 and was unsuccessful. They recommend SNF instead of in patient Acute rehab facility. Physician Progress Note PATIENT: ANDRY PIERRE [facility] #: [id number] : 1960 ADMIT DATE: 11/29/2023 8:06 PM [...] Thank You Torsten LEES BSN CCDS Email [email or web address] office hours M-F 6am to 2:30p Options [...] pulmonary disease) ([facility]) J44.9 PAM (obstructive sleep apnea) G47.33 Obesity, morbid ([facility]) E66.01 Lumbar degenerative disc disease M51.36 Lumbar radiculopathy M54.16 Lumbar facet arthropathy M47.816 Osteoarthritis of both knees M17.0 Diabetic neuropathy ([facility]) E11.40 Morbid obesity ([facility]) E66.01 Sleep apnea, obstructive G47.33 Encounter for medication monitoring Z51.81 Chronic kidney disease (CKD), stage III (moderate) ([facility]) N18.30 Hyperkalemia E87.5 Generalized weakness R53.1 Pill rolling tremor R25.1 Muscle cramps R25.2 Acute renal failure (ARF) ([facility]) N17.9 Type II or unspecified type diabetes mellitus without mention of complication, not stated as uncontrolled E11.9 Depression F32.A Irritable bowel syndrome K58.9 Obesity E66.9 CHF (congestive heart failure) ([facility]) I50.9 Parkinson disease G20.A1 Tremors of nervous system R25.[address] ([facility]) Z93.0 Bilateral lower extremity edema R60.0 CKD (chronic kidney disease) N18.9 Uncontrolled hypertension I10 Dysphagia R13.10 Hyperlipidemia E78.5 History of DVT (deep vein thrombosis) Z86.718 Congenital heart disease Q24.9 Emphysema of lung ([facility]) J43.9 Hernia K46.9 Stroke risk Z91.89 GERD (gastroesophageal reflux disease) K21.9 Asthma J45.909 Renal disease N28.9 Gout M10.9 S/P deep brain stimulator placement Z96.89 Parkinsons G20.A1 CKD (chronic kidney disease) stage 2, GFR 60-89 ml/min N18.2 Type II or unspecified type diabetes mellitus with renal manifestations, not stated as uncontrolled(250.40) E11.29 Encounter for chronic pain management G89.29 Weight loss, intentional [id number] 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 Primary osteoarthritis of both knees M17.0 DM type 2 with diabetic peripheral neuropathy ([facility]) E11.42 Need for immunization against influenza Z23 Morbid obesity due to excess calories ([facility]) E66.01 Diabetic mononeuropathy associated with diabetes mellitus due to underlying condition ([facility]) E08.41 AMS (altered mental status) R41.82 Altered mental status R41.82 Multiple falls R29.6 Essential tremor G25.0 Syncope and collapse R55 Staring episodes R40.4 Altered awareness, transient R40.4 Acute encephalopathy G93.40 Neuropathy G62.9 Pain: Patient did not complain of any pain. Cognitive Treatment Treatment time: [id number] Subjective: [x] Alert [x] Cooperative [] Confused [...] at discharge. Treatment completed by: Jimmy Alva, Photography Teacher Clinician Pharmacy Note Warfarin Consult follow-up Warfarin dose prior to admission: 17.5 mg Sun, 15 mg all other days (per medication management clinic in [place], last visit 11/11; clinic noted recent dose [...] sent to the ED. Ultimately transferred to [facility]. Neurology was consulted for encephalopathy. Patient's [...] been seen by neuromuscular neurology at the [facility] on 11/06/2023 with noted essential [...] NEEDLE ANTHONY U/F 32G X 4 MM [facility] ACCU-CHEK COMPACT PLUS strip 0 Allergies: Andry Magallanes Lesly is allergic to beta adrenergic blockers, hydralazine, neuromuscular blocking agents [neuromuscular blocking agents], neurontin [gabapentin], valium, and other. Past Medical History: Diagnosis Date Arthritis Asthma CHF (congestive heart failure) ([facility]) CKD (chronic kidney disease) stage 2, GFR 60-89 ml/min 02/16/2014 Clotting disorder ([facility]) Congenital heart disease COPD (chronic obstructive pulmonary disease) ([facility]) Depression Emphysema of lung ([facility]) GERD (gastroesophageal reflux disease) GERD (gastroesophageal reflux disease) Gout Headache(784.0) Hernia Hernia History of blood clots History of DVT (deep vein thrombosis) Hyperlipidemia Insomnia Irritable bowel syndrome Kidney stones Lumbar degenerative disc disease 01/25/2014 Lumbar radiculopathy 01/25/2014 Obesity PAM (obstructive sleep apnea) 11/16/2013 Parkinson disease Parkinson's disease Post traumatic stress disorder Renal disease Rheumatoid arthritis ([facility]) Stroke ([facility]) 2018 Stroke risk Tracheostomy in place ([facility]) 08/22/2011 Tremors of nervous system [...] INR 3.0 12/04/2023 LABA1C 8.8 (H) 11/25/2023 [id number] 11/30/2023 MG 2.7 (H) 11/30/2023 PHOS [...] is already scheduled through his PCP in [place]. Please note that this note was generated using a voice recognition dictation software. Although every effort was made to ensure the accuracy of this automated nib adjuster, some errors in nib adjuster may have occurred. Pharmacy Note Warfarin Consult follow-up Warfarin dose prior to admission: 17.5 mg Sun, 15 mg all other days (per medication management clinic in [place], last visit 11/11; clinic noted recent dose [...] PharmD, 12/03/2023 4:34 PM Physical Therapy Facility/Department: [address] [place] Physical Therapy Daily Treatment Note Name: Andry Pierre : 1960 Date of Service: 12/03/2023 Discharge Recommendations: Patient would benefit from continued therapy after discharge PT Equipment Recommendations Equipment Needed: No Patient Diagnosis(es): There were no encounter diagnoses. Past Medical History: has a past medical history of Arthritis, Asthma, CHF (congestive heart failure) ([facility]), CKD (chronic kidney disease) stage 2, GFR 60-89 ml/min, Clotting disorder ([facility]), Congenital heart disease, COPD (chronic obstructive pulmonary disease) ([facility]), Depression, Emphysema of lung ([facility]), GERD (gastroesophageal reflux disease), GERD (gastroesophageal reflux disease), Gout, Headache(784.0), Hernia, Hernia, History of blood clots, History of DVT (deep vein thrombosis), Hyperlipidemia, Insomnia, Irritable bowel syndrome, Kidney stones, Lumbar degenerative disc disease, Lumbar radiculopathy, Obesity, PAM (obstructive sleep apnea), Parkinson disease, Parkinson's disease, Post traumatic stress disorder, Renal disease, Rheumatoid arthritis ([facility]), Stroke ([facility]), Stroke risk, Tracheostomy in place ([facility]), Tremors of nervous system, Type [...] Comments: pt sitting in bedside chair upon commercial insurance underwriter entering room. pt retired to bedside chair [...] raises, and marches. Reps: 10 OutComes Score [facility] - Mobility [facility] Basic Mobility - Inpatient How much [...] 3-5 steps with a railing?: A Lot [facility] Inpatient Mobility Raw Score : 17 [facility] Inpatient T-Scale Score : 42.13 Mobility Inpatient CMS 0-100% Score: 50.57 Mobility Inpatient [facility] G-Code Modifier : CK Goals Short Term [...] task. Letty Lemon PTA Occupational Therapy Facility/Department[facility] [address] [facility] Occup[facility] Therapy Daily Treatment Note Name: Andry Pierre : 1960 Date of Service: 12/03/2023 Discharge Recommendations: Patient would benefit from continued therapy after discharge OT Equipment Recommendations ADL Assistive Devices: Shower Chair with back Other: weighted utensils Patient Diagnosis(es): There were no encounter diagnoses. Past Medical History: has a past medical history of Arthritis, Asthma, CHF (congestive heart failure) ([facility]), CKD (chronic kidney disease) stage 2, GFR 60-89 ml/min, Clotting disorder ([facility]), Congenital heart disease, COPD (chronic obstructive pulmonary disease) ([facility]), Depression, Emphysema of lung ([facility]), GERD (gastroesophageal reflux disease), GERD (gastroesophageal reflux disease), Gout, Headache(784.0), Hernia, Hernia, History of blood clots, History of DVT (deep vein thrombosis), Hyperlipidemia, Insomnia, Irritable bowel syndrome, Kidney stones, Lumbar degenerative disc disease, Lumbar radiculopathy, Obesity, PAM (obstructive sleep apnea), Parkinson disease, Parkinson's disease, Post traumatic stress disorder, Renal disease, Rheumatoid arthritis ([facility]), Stroke ([facility]), Stroke risk, Tracheostomy in place ([facility]), Tremors of nervous system, Type [...] of arm rests. Cognition Overall Cognitive Status: [facility] Cognition Comment: pt having conversation with [...] Code Treatment Minutes: 15 Minutes (co-tx w/ [employer] for safety) CAROLE Arriola Physician Progress Note PATIENT: ANDRY PIERRE CSN #: [id number] : 1960 ADMIT DATE: 11/29/2023 8:06 PM [...] Thank You Torsten LEES BSN CCDS Email [email or web address] office hours M-F 6am to 2:30p Options [...] from the original note were not included. [facility] Office: [phone] Alberto Rice DO, Luciano Murphy DO, Humza [...] Parker MD, Garett Valentine MD, Rosalia Mobley, MARBLE MACHINE TENDER, Criss Gray, MARBLE MACHINE TENDER, Lefty Matute, MARBLE MACHINE TENDER, Brittny Quinones, [facility], Kacey Meeks, MARBLE MACHINE TENDER, Sugey Barillas, MARBLE MACHINE TENDER, Mary Jo Bonner, MARBLE MACHINE TENDER, Jodi Granados, MARBLE MACHINE TENDER, Sigrid Velásquez, MARBLE MACHINE TENDER, Janine Turpin, PA-C, Sue Willams, PA-C, Savi Iqbal, MARBLE MACHINE TENDER, Beckie Mello, MARBLE MACHINE TENDER, Nora Mace, MARBLE MACHINE TENDER, Jyoti Rojo, BATTERY ENGINEER, Ronda Sellers, MARBLE MACHINE TENDER, Janell Hoyt, MARBLE MACHINE TENDER, Caryl Gonzalez, MARBLE MACHINE TENDER [facility] IN-PATIENT SERVICE [facility] Progress Note 12/03/2023 12:01 PM Name: Andry Pierre Acct: [id number] Room: 0143/0143-01 Day: 4 Admit Date: 11/29/2023 8:06 PM [...] brain stimulator 10/2008 who initially presented to [facility] 11/24 s/p fall in bathroom with acute left hip/upper thigh and back pain (hit head, no LOC) presents with No chief complaint on file. and is admitted to the hospital for the management of AMS (altered mental status). Patient transferred from [place] after undergoing tilt table evaluation for concern for orthostasis on 11/28/2022 with history of recurrent episodes of dizziness with history of stroke, complicated history. tilt table test complicated by worsening acute symptoms of dizziness with chest pain with altered sensorium. Although tilt test unremarkable for orthostasis, patient was evaluated in ED with acute symptoms and recommended admission pending transfer to [facility] for neurology evaluation. Unfortunately with [...] with occasional shortness of breath While in [place] ED patient did develop symptomatic hypoglycemia with blood sugars in the 50s with symptoms of feeling funny . Status post treatment per hypoglycemia protocol S/p multiple admissions recently at [place] for recurrent stroke like symptoms with dizziness and orthostasis with chest pain, SOB, worsening aphasia x2-3 weeks [employer]. Subsequently returned status post 11/24 with worsening [...] Asthma, CHF (congestive heart failure) ([facility]), CKD (chronic kidney disease) stage 2, GFR 60-89 ml/min, Clotting disorder ([facility]), Congenital heart disease, COPD (chronic obstructive pulmonary disease) ([facility]), Depression, Emphysema of lung ([facility]), GERD (gastroesophageal reflux disease), GERD (gastroesophageal reflux disease), Gout, Headache(784.0), Hernia, Hernia, History of blood clots, History of DVT (deep vein thrombosis), Hyperlipidemia, Insomnia, Irritable bowel syndrome, Kidney stones, Lumbar degenerative disc disease, Lumbar radiculopathy, Obesity, PAM (obstructive sleep apnea), Parkinson disease, Parkinson's disease, Post traumatic stress disorder, Renal disease, Rheumatoid arthritis ([facility]), Stroke ([facility]), Stroke risk, Tracheostomy in place ([facility]), Tremors of nervous system, Type [...] 03:20 PM PO2ART 92.5 08/22/2011 03:20 PM [id number] 26.0 08/22/2011 03:20 PM NBEA NOT REPORTED 08/22/2011 03:20 PM PBEA 1.8 08/22/2011 03:20 PM [id number] 95.6 08/22/2011 03:20 PM FIO2 INFORMATION NOT PROVIDED 11/30/2023 12:05 AM Lab Results Component Value Date/Time SPECIAL NOT REPORTED 10/20/2012 10:15 AM SPECIAL NOT REPORTED 10/20/2012 10:15 AM Lab Results Component Value Date/Time CULTURE NO GROWTH 10/20/2012 10:15 AM CULTURE 10/20/2012 10:15 AM Performed at [facility] [address] Radiology: XR CHEST (2 VW) Result Date: [...] 2 units and then adjust accordingly Recurrent AJRr-HKEd-qudulk neurology plan History of prothrombin gene mutation with prior DVT-continue Coumadin CKD stage III-continue to monitor creatinine and will need follow-up with nephrology/PCP PAM on CPAP Discharge planning after the above workup Lori Leblanc MD 12/03/2023 12:01 PM Physician Progress Note PATIENT: ANDRY PIERRE CSN #: [id number] : 1960 ADMIT DATE: 11/29/2023 8:06 PM [...] Thank You Torsten LEES BSN CCDS Email [email or web address] office hours M-F 6am to 2:30p Options [...] sent to the ED. Ultimately transferred to [facility]. Neurology was consulted for encephalopathy. Patient's [...] been seen by neuromuscular neurology at the [facility] on 11/06/2023 with noted essential [...] NEEDLE ANTHONY U/F 32G X 4 MM [employer] ACCU-CHEK COMPACT PLUS strip 0 Allergies: Andry Pierre is allergic to beta adrenergic blockers, hydralazine, neuromuscular blocking agents [neuromuscular blocking agents], neurontin [gabapentin], valium, and other. Past Medical History: Diagnosis Date Arthritis Asthma CHF (congestive heart failure) ([facility]) CKD (chronic kidney disease) stage 2, GFR 60-89 ml/min 02/16/2014 Clotting disorder ([facility]) Congenital heart disease COPD (chronic obstructive pulmonary disease) ([facility]) Depression Emphysema of lung ([facility]) GERD (gastroesophageal reflux disease) GERD (gastroesophageal reflux disease) Gout Headache(784.0) Hernia Hernia History of blood clots History of DVT (deep vein thrombosis) Hyperlipidemia Insomnia Irritable bowel syndrome Kidney stones Lumbar degenerative disc disease 01/25/2014 Lumbar radiculopathy 01/25/2014 Obesity PAM (obstructive sleep apnea) 11/16/2013 Parkinson disease Parkinson's disease Post traumatic stress disorder Renal disease Rheumatoid arthritis ([facility]) Stroke ([facility]) 2018 Stroke risk Tracheostomy in place ([facility]) 08/22/2011 Tremors of nervous system [...] INR 3.3 12/03/2023 LABA1C 8.8 (H) 11/25/2023 [id number] 397 11/30/2023 MG 2.7 (H) 11/30/2023 PHOS [...] is already scheduled through his PCP in [place]. Please note that this note was generated using a voice recognition dictation software. Although every effort was made to ensure the accuracy of this automated nib adjuster, some errors in nib adjuster may have occurred. Associated attestation - Krystian Colvin MD - 12/03/2023 9:03 PM EST Attending Physician Statement I have discussed the case of Andry Pierre including pertinent history and exam findings with the resident/ MARBLE MACHINE TENDER. I reviewed medications, clinical labs, x-rays and other diagnostic tests with the resident/ MARBLE MACHINE TENDER. I have seen and examined the patient [...] not tolerate those. He has been having zksi-ckd-pzqyjdy in lower legs and feet and also [...] from the original note were not included. [facility] Office: [phone] Alberto Rice DO, Luciano Murphy DO, Humza [...] Lefty Matute CNP, Brittny Quinones DNP, Kacey Meeks, SHERYL, Sugey Barillas CNP, Mary Jo Bonner CNP, Jodi Granados CNP, Sigrid Velásquez CNP, KATHRIN McmillanC, KATHRIN MercedesC, Savi Iqbal, MARBLE MACHINE TENDER, Beckie Mello, MARBLE MACHINE TENDER, Nora Mace, MARBLE MACHINE TENDER, Jyoti Rojo, ANICETO, Ronda Sellers, SHERYL, Janell Hoyt, SHERYL, Caryl Gonzalez, MARBLE MACHINE TENDER [facility] IN-PATIENT SERVICE [facility] Progress Note 12/02/2023 3:11 PM Name: Andry Pierre Acct: [id number] Room: [address] [place] [address] Day: 3 Admit Date: 11/29/2023 8:06 PM [...] back to home dose Pending Placement to [place] Brief History: Per documentation Andry Pierre is a 63 y.o. male with history of prior CVAs (with h/o expressive aphasia, dysphasia), h/o seizures, DM 2, HFpEF, CKD 3, chronic thrombophila w/ +prothrombin gene mutation s/p DVT/PE 01/2023, nonobst CAD (s/p cath 2019), asthma/COPD with PAM with history of Parkinsons vs MG s/p deep brain stimulator 10/2008 who initially presented to [facility] 11/24 s/p fall in bathroom with acute left hip/upper thigh and back pain (hit head, no LOC) presents with No chief complaint on file. and is admitted to the hospital for the management of AMS (altered mental status). Patient transferred from [place] after undergoing tilt table evaluation for concern for orthostasis on 11/28/2022 with history of recurrent episodes of dizziness with history of stroke, complicated history. tilt table test complicated by worsening acute symptoms of dizziness with chest pain with altered sensorium. Although tilt test unremarkable for orthostasis, patient was evaluated in ED with acute symptoms and recommended admission pending transfer to [facility] for neurology evaluation. Unfortunately with [...] with occasional shortness of breath While in [place] ED patient did develop symptomatic hypoglycemia with blood sugars in the 50s with symptoms of feeling funny . Status post treatment per hypoglycemia protocol S/p multiple admissions recently at [place] for recurrent stroke like symptoms with dizziness and orthostasis with chest pain, SOB, worsening aphasia x2-3 weeks [employer]. Subsequently returned status post fall 11/24 with [...] Asthma, CHF (congestive heart failure) ([facility]), CKD (chronic kidney disease) stage 2, GFR 60-89 ml/min, Clotting disorder ([facility]), Congenital heart disease, COPD (chronic obstructive pulmonary disease) ([facility]), Depression, Emphysema of lung ([facility]), GERD (gastroesophageal reflux disease), GERD (gastroesophageal reflux disease), Gout, Headache(784.0), Hernia, Hernia, History of blood clots, History of DVT (deep vein thrombosis), Hyperlipidemia, Insomnia, Irritable bowel syndrome, Kidney stones, Lumbar degenerative disc disease, Lumbar radiculopathy, Obesity, PAM (obstructive sleep apnea), Parkinson disease, Parkinson's disease, Post traumatic stress disorder, Renal disease, Rheumatoid arthritis ([facility]), Stroke ([facility]), Stroke risk, Tracheostomy in place ([facility]), Tremors of nervous system, Type [...] Max:98.2 F (36.8 C) Recent Labs 12/01/23 17412/01/23200312/02/23 0754 12/02/23 1204 POCGLU 108 168* 117* [...] MYOGLOBIN 59 -- -- -- Recent Labs 11/29/23201711/29/234 11/30/2348 11/30/23 0807 11/30/23 0830 11/30/23 0930 12/01/23 0812 12/01/23 1232 12/01/23 1740 12/01/23200312/02/23 07512/02/23 1204 PROT 6.5 -- -- -- -- [...] 03:20 PM PO2ART 92.5 08/22/2011 03:20 PM LSD7FOB 26.0 08/22/2011 03:20 PM NBEA NOT REPORTED 08/22/2011 03:20 PM PBEA 1.8 08/22/2011 03:20 PM [id number] 95.6 08/22/2011 03:20 PM FIO2 INFORMATION NOT PROVIDED 11/30/2023 12:05 AM Lab Results Component Value Date/Time SPECIAL NOT REPORTED 10/20/2012 10:15 AM SPECIAL NOT REPORTED 10/20/2012 10:15 AM Lab Results Component Value Date/Time CULTURE NO GROWTH 10/20/2012 10:15 AM CULTURE 10/20/2012 10:15 AM Performed at [facility] [address] [address] Radiology: XR CHEST (2 VW) Result Date: [...] disease (CKD), stage III (moderate) ([facility]) 11/30/2023 Yes CHF (congestive heart failure) ([facility]) 11/30/2023 Yes Uncontrolled hypertension 11/30/2023 [...] (HCC) CHF (congestive heart failure) ([facility]) Uncontrolled hypertension Dysphagia GERD (gastroesophageal reflux disease) S/P deep brain stimulator placement Spondylarthrosis DM type 2 with diabetic peripheral neuropathy ([facility]) Altered mental status Multiple falls [...] 2 units and then adjust accordingly Recurrent STCn-DSZx-pehots neurology plan History of prothrombin gene mutation with prior DVT-continue Coumadin CKD stage III-continue to monitor creatinine and will need follow-up with nephrology/PCP PAM on CPAP Discharge planning after the above workup Lori Leblanc MD 12/02/2023 3:11 PM [employer] Speech Language Pathology [facility] Cognitive Treatment Note Date: 12/02/2023 Patient s Name: Andry Pierre Diagnosis: Patient Active Problem List Diagnosis Code COPD (chronic obstructive pulmonary disease) ([facility]) J44.9 PAM (obstructive sleep apnea) G47.33 Obesity, morbid ([facility]) E66.01 Lumbar degenerative disc disease M51.36 Lumbar radiculopathy M54.16 Lumbar facet arthropathy M47.816 Osteoarthritis of both knees M17.0 Diabetic neuropathy ([facility]) E11.40 Morbid obesity ([facility]) E66.01 Sleep apnea, obstructive G47.33 Encounter for medication monitoring Z51.81 Chronic kidney disease (CKD), stage III (moderate) ([facility]) N18.30 Hyperkalemia E87.5 Fatigue R53.83 Pill rolling tremor R25.1 Muscle cramps R25.2 Acute renal failure (ARF) ([facility]) N17.9 Type II or unspecified type diabetes mellitus without mention of complication, not stated as uncontrolled E11.9 Depression F32.A Irritable bowel syndrome K58.9 Obesity E66.9 CHF (congestive heart failure) ([facility]) I50.9 Parkinson disease G20.A1 Tremors of nervous system R25.[address] ([facility]) Z93.0 Bilateral lower extremity edema [...] chronic pain management G89.29 Weight loss, intentional [id number] 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 Given 30 sec to study [...] recommended at discharge. Completed by Tess Robert Photography Teacher Clinician Co-signed by Sonja Madera M.S. CCC/[facility] Pharmacy Note Warfarin Consult follow-up Warfarin dose prior to admission: 17.5 mg Sun, 15 mg all other days (per medication management clinic in [place], last visit 11/11; clinic noted recent dose [...] NEEDLE ANTHONY U/F 32G X 4 MM [facility] ACCU-CHEK COMPACT PLUS strip 0 Allergies: Andry Magallanes Lesly is allergic to beta adrenergic blockers, hydralazine, neuromuscular blocking agents [neuromuscular blocking agents], neurontin [gabapentin], valium, and other. Past Medical History: Diagnosis Date Arthritis Asthma CHF (congestive heart failure) ([facility]) CKD (chronic kidney disease) stage 2, GFR 60-89 ml/min 02/16/2014 Clotting disorder ([facility]) Congenital heart disease COPD (chronic obstructive pulmonary disease) ([facility]) Depression Emphysema of lung ([facility]) GERD (gastroesophageal reflux disease) GERD (gastroesophageal reflux disease) Gout Headache(784.0) Hernia Hernia History of blood clots History of DVT (deep vein thrombosis) Hyperlipidemia Insomnia Irritable bowel syndrome Kidney stones Lumbar degenerative disc disease 01/25/2014 Lumbar radiculopathy 01/25/2014 Obesity PAM (obstructive sleep apnea) 11/16/2013 Parkinson disease Parkinson's disease Post traumatic stress disorder Renal disease Rheumatoid arthritis ([facility]) Stroke ([facility]) 2018 Stroke risk Tracheostomy in place ([facility]) 08/22/2011 Tremors of nervous system [...] UPPER GASTROINTESTINAL ENDOSCOPY 15 chronic inflammation UVULOPALATOPHARYGOPLASTY Medications: insulin glargine 2 [...] INR 2.8 12/02/2023 LABA1C 8.8 (H) 11/25/2023 [id number] 397 11/30/2023 MG 2.7 (H) 11/30/2023 PHOS [...] meaning may be extrapolated by contextual derivation. [facility] Speech Language Pathology [facility] Cognitive Treatment Note Date: 12/01/2023 Patient s Name: Andry Pierre Diagnosis: Patient Active Problem List Diagnosis Code COPD (chronic obstructive pulmonary disease) ([facility]) J44.9 PAM (obstructive sleep apnea) G47.33 Obesity, morbid ([facility]) E66.01 Lumbar degenerative disc disease M51.36 Lumbar radiculopathy M54.16 Lumbar facet arthropathy M47.816 Osteoarthritis of both knees M17.0 Diabetic neuropathy ([facility]) E11.40 Morbid obesity ([facility]) E66.01 Sleep apnea, obstructive G47.33 Encounter for medication monitoring Z51.81 Chronic kidney disease (CKD), stage III (moderate) ([facility]) N18.30 Hyperkalemia E87.5 Fatigue R53.83 Pill rolling tremor R25.1 Muscle cramps R25.2 Acute renal failure (ARF) ([facility]) N17.9 Type II or unspecified type diabetes mellitus without mention of complication, not stated as uncontrolled E11.9 Depression F32.A Irritable bowel syndrome K58.9 Obesity E66.9 CHF (congestive heart failure) ([facility]) I50.9 Parkinson disease G20.A1 Tremors of nervous system R25.[address] ([facility]) Z93.0 Bilateral lower extremity edema R60.0 CKD (chronic kidney disease) N18.9 Uncontrolled hypertension I10 Dysphagia R13.10 Hyperlipidemia E78.5 History of DVT (deep vein thrombosis) Z86.718 Congenital heart disease Q24.9 Emphysema of lung ([facility]) J43.9 Hernia K46.9 Stroke risk Z91.89 GERD (gastroesophageal reflux disease) K21.9 Asthma J45.909 Renal disease N28.9 Gout M10.9 S/P deep brain stimulator placement Z96.89 Parkinsons G20.A1 CKD (chronic kidney disease) stage 2, GFR 60-89 ml/min N18.2 Type II or unspecified type diabetes mellitus with renal manifestations, not stated as uncontrolled(250.40) E11.29 Encounter for chronic pain management G89.29 Weight loss, intentional [id number] 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 Completed by Tess Robert Photography Teacher Clinician Co-signed by Sonja Madera M.S. CCC/[facility] Pharmacy Note Warfarin Consult follow-up Warfarin dose prior to admission: 17.5 mg Sun, 15 mg all other days (per medication management clinic in [place], last visit 11/11; clinic noted recent dose [...] PharmD, 12/01/2023 1:02 PM Physical Therapy Facility/Department: [address] [place] Physical Therapy Initial Assessment Name: [...] brain stimulator 10/2008 who initially presented to [facility] 11/24 s/p fall in [...] Asthma, CHF (congestive heart failure) ([facility]), CKD (chronic kidney disease) stage 2, GFR 60-89 ml/min, Clotting disorder ([facility]), Congenital heart disease, COPD (chronic obstructive pulmonary disease) ([facility]), Depression, Emphysema of lung (HCC), [...] Needs assistance Transfer Assistance: Needs assistance Active Development Chemist: No Patient's Development Chemist Info: riends from [employer]. does not drive Mode of Transportation: [...] of <10 inches is fall risk): Yes [facility] Basic Mobility - Inpatient How much [...] 3-5 steps with a railing?: A Lot [facility] Inpatient Mobility Raw Score : 17 [facility] Inpatient T-Scale Score : 42.13 Mobility Inpatient CMS 0-100% Score: 50.57 Mobility Inpatient [facility] G-Code Modifier : CK Goals Short Term [...] from the original note were not included. [facility] Office: [phone] Alberto Rice DO, Luciano Murphy DO, Humza [...] Jodi Granados CNP, Sigrid Velásquez CNP, Janine Turpin PA-C, Sue Willams PA-C, Savi Iqbal CNP, Beckie Mello CNP, Nora Mace CNP, Jyoti Rojo, BATTERY ENGINEER, Ronda Sellers, MARBLE MACHINE TENDER, Janell Hoyt, MARBLE MACHINE TENDER, Caryl Gonzalez, MARBLE MACHINE TENDER [facility] IN-PATIENT SERVICE [facility] Progress Note 12/01/2023 1:10 PM Name: Andry Pierre Acct: [id number] Room: [address] [place] [address] Day: 2 Admit Date: 11/29/2023 8:06 PM [...] brain stimulator 10/2008 who initially presented to [facility] 11/24 s/p fall in bathroom with acute left hip/upper thigh and back pain (hit head, no LOC) presents with No chief complaint on file. and is admitted to the hospital for the management of AMS (altered mental status). Patient transferred from [place] after undergoing tilt table evaluation for concern for orthostasis on 11/28/2022 with history of recurrent episodes of dizziness with history of stroke, complicated history. tilt table test complicated by worsening acute symptoms of dizziness with chest pain with altered sensorium. Although tilt test unremarkable for orthostasis, patient was evaluated in ED with acute symptoms and recommended admission pending transfer to [facility] for neurology evaluation. Unfortunately with [...] with occasional shortness of breath While in [place] ED patient did develop symptomatic hypoglycemia with blood sugars in the 50s with symptoms of feeling funny . Status post treatment per hypoglycemia protocol S/p multiple admissions recently at [place] for recurrent stroke like symptoms with dizziness and orthostasis with chest pain, SOB, worsening aphasia x2-3 weeks [employer]. Subsequently returned status post fall 11/24 with [...] GFR 60-89 ml/min, Clotting disorder ([facility]), Congenital heart disease, COPD (chronic obstructive pulmonary disease) ([facility]), Depression, Emphysema of lung (HCC), GERD (gastroesophageal reflux disease), GERD (gastroesophageal reflux disease), Gout, Headache(784.0), Hernia, Hernia, History of blood clots, History of DVT (deep vein thrombosis), Hyperlipidemia, Insomnia, Irritable bowel syndrome, Kidney stones, Lumbar degenerative disc disease, Lumbar radiculopathy, Obesity, PAM (obstructive sleep apnea), Parkinson disease, Parkinson's disease, Post traumatic stress disorder, Renal disease, Rheumatoid arthritis ([facility]), Stroke ([facility]), Stroke risk, Tracheostomy in place ([facility]), Tremors of nervous system, Type [...] INR -- 3.0 2.8 Chemistry: Recent Labs 11/28/23142411/28/23 1555 11/29/23201711/30/23 0648 12/01/23 0606 NA 143 [...] 03:20 PM PO2ART 92.5 08/22/2011 03:20 PM KZM8VRK 26.0 08/22/2011 03:20 PM NBEA NOT REPORTED 08/22/2011 03:20 PM PBEA 1.8 08/22/2011 03:20 PM [id number] 95.6 08/22/2011 03:20 PM FIO2 INFORMATION NOT PROVIDED 11/30/2023 12:05 AM Lab Results Component Value Date/Time SPECIAL NOT REPORTED 10/20/2012 10:15 AM SPECIAL NOT REPORTED 10/20/2012 10:15 AM Lab Results Component Value Date/Time CULTURE NO GROWTH 10/20/2012 10:15 AM CULTURE 10/20/2012 10:15 AM Performed at [facility] [address] [place] [id number] Radiology: XR CHEST (2 VW) Result Date: [...] 2 units and then adjust accordingly Recurrent HYHq-DANt-mvsurx neurology plan History of prothrombin gene mutation with prior DVT-continue Coumadin CKD stage III-continue to monitor creatinine and will need follow-up with nephrology/PCP PAM on CPAP Discharge planning after the above workup Polly Ramos MD 12/01/2023 1:10 PM NEUROLOGY INPATIENT PROGRESS NOTE 12/01/2023 Subjective: Anrdy Pierre is a 63 y.o. male admitted on 11/29/2023 with AMS (altered mental status) [R41.82] Altered mental status [R41.82] Mr Andry iPerre is a 63-year-old male with severe essential [...] NEEDLE ANTHON[facility] U/F 32[facility] X [facility] strip 0 Allergies: Andry Pierre is allergic to beta adrenergic blockers, hydralazine, neuromuscular blocking agents [neuromuscular blocking agents], neurontin [gabapentin], valium, and other. Past Medical History: Diagnosis Date Arthritis Asthma CHF (congestive heart failure) ([facility]) CKD (chronic kidney disease) stage 2, GFR 60-89 ml/min 02/16/2014 Clotting disorder ([facility]) Congenital heart disease COPD (chronic obstructive pulmonary disease) ([facility]) Depression Emphysema of lung ([facility]) GERD (gastroesophageal reflux disease) GERD (gastroesophageal reflux disease) Gout Headache(784.0) Hernia Hernia History of blood clots History of DVT (deep vein thrombosis) Hyperlipidemia Insomnia Irritable bowel syndrome Kidney stones Lumbar degenerative disc disease 01/25/2014 Lumbar radiculopathy 01/25/2014 Obesity PAM (obstructive sleep apnea) 11/16/2013 Parkinson disease Parkinson's disease Post traumatic stress disorder Renal disease Rheumatoid arthritis ([facility]) Stroke ([facility]) 2018 Stroke risk Tracheostomy in place ([facility]) 08/22/2011 Tremors of nervous system [...] INR 2.8 12/01/2023 LABA1C 8.8 (H) 11/25/2023 [id number] 397 11/30/2023 MG 2.7 (H) 11/30/2023 PHOS [...] has not worked with PT yet Vitals: 11/30/235 11/30/23 2325 12/01/23 0345 12/01/23 0403 BP: [...] any changes in patients neurologic status. Tal SHERYL Latham 12/01/23 6:20 AM Associated attestation - Marlon Barlow MD - 12/01/2023 10:04 PM EST I have reviewed and agree with Ms. Latham's note. I also saw and examined the patient today. He continues to have similar c/o weakness. I reviewed CTs of the spine, as well as the radiologists' reports. I am able to see records that he had an EMG done at [facility] on 11/06/23, but I am unable to [...] with questions or concerns. Occupational Therapy Facility/Department: [address] [facility] Initial Assessment Name: Andry Pierre [...] Asthma, CHF (congestive heart failure) ([facility]), CKD (chronic kidney disease) stage 2, GFR 60-89 ml/min, Clotting disorder ([facility]), Congenital heart disease, COPD (chronic obstructive pulmonary disease) ([facility]), Depression, Emphysema of lung ([facility]), GERD (gastroesophageal reflux disease), GERD (gastroesophageal reflux disease), Gout, Headache(784.0), Hernia, Hernia, History of blood clots, History of DVT (deep vein thrombosis), Hyperlipidemia, Insomnia, Irritable bowel syndrome, Kidney stones, Lumbar degenerative disc disease, Lumbar radiculopathy, Obesity, PAM (obstructive sleep apnea), Parkinson disease, Parkinson's disease, Post traumatic stress disorder, Renal disease, Rheumatoid arthritis ([facility]), Stroke ([facility]), Stroke risk, Tracheostomy in place ([facility]), Tremors of nervous system, Type [...] the house) Transfer Assistance: Needs assistance Active Development Chemist: No (friends from [employer]. does not drive) Occupation: On disability [...] brushed teeth, wash upper body and don [facility] gown. Pt retired sitting upright in recliner. pt took increased time to complete ADL tasks d/t tremor and hand weakness. Vision Vision: Impaired Vision Exceptions: Wears glasses at all times Hearing Hearing: Within functional limits Cognition Overall Cognitive Status: [facility] Cognition Comment: pt having fluent conversation [...] Learning: None Education Outcome: Verbalized understanding;Demonstrated understanding AM-[facility] - ADL AM-PAC Daily Activity - Inpatient [...] AM-PAC Inpatient Daily Activity Raw Score: 20 AM-[facility] Inpatient ADL T-Scale Score : 42.03 ADL Inpatient CMS 0-100% Score: 38.32 ADL Inpatient [facility] G-Code Modifier : CJ Goals Short Term [...] Code Treatment Minutes: 48 Minutes Dina Glez S/LOREE BOSTON CUTTER ALL NOTES Facility/Department: [address] [facility] CLINICAL BEDSIDE SWALLOW EVALUATION NAME: Andry Pierre : 1960 ADMISSION DATE: 11/29/2023 ADMITTING DIAGNOSIS: has COPD (chronic obstructive pulmonary disease) ([facility]); PAM (obstructive sleep apnea); Obesity, morbid ([facility]); Lumbar degenerative disc disease; Lumbar radiculopathy; Lumbar facet arthropathy; Osteoarthritis of both knees; Diabetic neuropathy ([facility]); Morbid obesity ([facility]); Sleep apnea, obstructive; Encounter for medication monitoring; Chronic kidney disease (CKD), stage III (moderate) ([facility]); Hyperkalemia; Fatigue; Pill rolling tremor; Muscle cramps; Acute renal failure (ARF) ([facility]); Type II or unspecified type diabetes mellitus without mention of complication, not stated as uncontrolled; Depression; Irritable bowel syndrome; Obesity; CHF (congestive heart failure) ([facility]); Parkinson disease; Tremors of nervous system; Tracheostomy in place ([facility]); Bilateral lower extremity edema; CKD (chronic kidney disease); Uncontrolled hypertension; Dysphagia; Hyperlipidemia; History of DVT (deep vein thrombosis); Congenital heart disease; Emphysema of lung ([facility]); Hernia; Stroke risk; GERD (gastroesophageal [...] 2 with diabetic peripheral neuropathy ([facility]); Need for immunization against influenza; Morbid obesity due to excess calories ([facility]); Diabetic mononeuropathy associated with diabetes mellitus due to underlying condition ([facility]); AMS (altered mental status); and [...] brain stimulator 10/2008 who initially presented to [facility] 11/24 s/p fall in bathroom with acute left hip/upper thigh and back pain (hit head, no LOC) presents with No chief complaint on file. and is admitted to the hospital for the management of AMS (altered mental status). Patient transferred from [place] after undergoing tilt table evaluation for concern for orthostasis on 11/28/2022 with history of recurrent episodes of dizziness with history of stroke, complicated history. tilt table test complicated by worsening acute symptoms of dizziness with chest pain with altered sensorium. Although tilt test unremarkable for orthostasis, patient was evaluated in ED with acute symptoms and recommended admission pending transfer to [facility] for neurology evaluation. Unfortunately with [...] with occasional shortness of breath While in [place] ED patient did develop symptomatic hypoglycemia with blood sugars in the 50s with symptoms of feeling funny . Status post treatment per hypoglycemia protocol S/p multiple admissions recently at [place] for recurrent stroke like symptoms with dizziness and orthostasis with chest pain, SOB, worsening aphasia x2-3 weeks [employer]ILINGS [employer]. Subsequently returned status post fall 11/24 with [...] with partial PO only Treatment Plan Requires BOSTON CUTTER Intervention: Yes Referral To: GI Recommended Diet [...] Patient Education Response: Verbalizes understanding Therapy Time [id number] Janis Velazco M.S., [facility] AMALIA Khanna 11/30/2023 1:24 PM BOSTON C[employer]TER ALL NOTES Facility/Department: [address] [facility] Initial Speech/Language/Cognitive Assessment NAME: Andry Pierre : 1960 ADMISSION DATE: 11/29/2023 ADMITTING DIAGNOSIS: has COPD (chronic obstructive pulmonary disease) ([facility]); PMA (obstructive sleep apnea); Obesity, morbid ([facility]); Lumbar degenerative disc disease; Lumbar radiculopathy; Lumbar facet arthropathy; Osteoarthritis of both knees; Diabetic neuropathy ([facility]); Morbid obesity ([facility]); Sleep apnea, obstructive; Encounter for medication monitoring; Chronic kidney disease (CKD), stage III (moderate) ([facility]); Hyperkalemia; Fatigue; Pill rolling tremor; Muscle cramps; Acute renal failure (ARF) ([facility]); Type II or unspecified type diabetes mellitus without mention of complication, not stated as uncontrolled; Depression; Irritable bowel syndrome; Obesity; CHF (congestive heart failure) ([facility]); Parkinson disease; Tremors of nervous system; Tracheostomy in place ([facility]); Bilateral lower extremity edema; CKD (chronic kidney disease); Uncontrolled hypertension; Dysphagia; Hyperlipidemia; History of DVT (deep vein thrombosis); Congenital heart disease; Emphysema of lung ([facility]); Hernia; Stroke risk; GERD (gastroesophageal [...] brain stimulator 10/2008 who initially presented to [facility] 11/24 s/p fall in bathroom with acute left hip/upper thigh and back pain (hit head, no LOC) presents with No chief complaint on file. and is admitted to the hospital for the management of AMS (altered mental status). Patient transferred from [place] after undergoing tilt table evaluation for concern for orthostasis on 11/28/2022 with history of recurrent episodes of dizziness with history of stroke, complicated history. tilt table test complicated by worsening acute symptoms of dizziness with chest pain with altered sensorium. Although tilt test unremarkable for orthostasis, patient was evaluated in ED with acute symptoms and recommended admission pending transfer to [facility] for neurology evaluation. Unfortunately with [...] with occasional shortness of breath While in [place] ED patient did develop symptomatic hypoglycemia with blood sugars in the 50s with symptoms of feeling funny . Status post treatment per hypoglycemia protocol S/p multiple admissions recently at [place] for recurrent stroke like symptoms with dizziness and orthostasis with chest pain, SOB, worsening aphasia x2-3 weeks [employer]. Subsequently returned status post fall 11/24 with [...] week at this time. Recommendations: Recommendations Requires BOSTON CUTTER Intervention: Yes Recommendations: Modified barium swallow study [...] difficulties Social/Functional History Lives With: Spouse Active Development Chemist: No Occupation: Retired Objective: Oral Motor Labial: [...] Sequencing: Task 1 3/ Immediate recall: 2/3, 3, 0/3 Delayed recall: 0/3 3 minute delay, 0/3 7 minute delay Verbal reasoning antonyms: / Inductive reasonin/6 Verbal reasoning similarities and differences: similarities / and differences / Task insight problem solvin/3 Inductive reasoning and thought flexibility 3 reasons for... task: 6 Convergent thinkin/3 Deductive reasonin/5 Divergent naming (concrete): 3 Divergent naming (abstract): 4 Prognosis: Speech Therapy Prognosis Prognosis: Fair Prognosis Considerations: Previous Level of Function;Severity of Impairments Individuals consulted Consulted and agree with results and recommendations: Patient;RN Education: Patient Education: yes Patient Education Response: Verbalizes understanding Therapy Time: Individual Concurrent Group Co-treatment Time In 1145 Time Out 1157 Minutes 12 Janis Velazco M.S., [facility] Pharmacy Note Warfarin Consult Andry Pierre is a 63 y.o. male for whom pharmacy has been consulted to manage warfarin therapy. Consulting Physician: Dr Jamia Nur Reason for Admission: AMS Warfarin dose prior to admission: 10 MG 5 DAYS, 15 MG 2 DAYS A WEEK followed by [facility] Warfarin indication: DVT/PE Target INR range: [...] disease Rheumatoid arthritis (HCC) Stroke ([facility]) 2018 Stroke risk Tracheostomy in place ([facility]) 08/22/2011 Tremors of nervous system [...] to follow. Thank you Eros Ansari, PharmD, [facility] Inpatient Clinical Pharmacist [phone] Images from the original note were not included. [facility] Office: [phone] Alberto Rice DO, Luciano Murphy DO, Humza [...] Parker MD, Garett Valentine MD, Rosalia Mobley, MARBLE MACHINE TENDER, Criss Gray, MARBLE MACHINE TENDER, Lefty Matute, MARBLE MACHINE TENDER, Brittny Quinones, [facility], Kacey Meeks, MARBLE MACHINE TENDER, Sugey Barillas, MARBLE MACHINE TENDER, Mary Jo Bonner, MARBLE MACHINE TENDER, Jodi Granados, MARBLE MACHINE TENDER, Sigrid Velásquez, MARBLE MACHINE TENDER, Janine Turpin, PARolfC, Sue Willams PARolfC, Savi Iqbal, MARBLE MACHINE TENDER, Beckie Mello, MARBLE MACHINE TENDER, Nora Mace, MARBLE MACHINE TENDER, Jyoti Rojo, BATTERY ENGINEER, Ronda Sellers, MARBLE MACHINE TENDER, Janell Hoyt, MARBLE MACHINE TENDER, Caryl Gonzalez, MARBLE MACHINE TENDER [facility] IN-PATIENT SERVICE [facility] Progress Note 11/30/2023 7:43 AM Name: Andry Pierre Acct: [id number] Room: [facility][note 3]0143-[facility] Day: 1 Admit Date: 11/29/2023 8:06 PM [...] brain stimulator 10/2008 who initially presented to [facility] 11/24 s/p fall in bathroom with acute left hip/upper thigh and back pain (hit head, no LOC) presents with No chief complaint on file. and is admitted to the hospital for the management of AMS (altered mental status). Patient transferred from [place] after undergoing tilt table evaluation for concern for orthostasis on 11/28/2022 with history of recurrent episodes of dizziness with history of stroke, complicated history. tilt table test complicated by worsening acute symptoms of dizziness with chest pain with altered sensorium. Although tilt test unremarkable for orthostasis, patient was evaluated in ED with acute symptoms and recommended admission pending transfer to [facility] for neurology evaluation. Unfortunately with [...] with occasional shortness of breath While in [place] ED patient did develop symptomatic hypoglycemia with blood sugars in the 50s with symptoms of feeling funny . Status post treatment per hypoglycemia protocol S/p multiple admissions recently at [place] for recurrent stroke like symptoms with dizziness and orthostasis with chest pain, SOB, worsening aphasia x2-3 weeks [employer]. Subsequently returned status post 11/24 with worsening [...] Asthma, CHF (congestive heart failure) ([facility]), CKD (chronic kidney disease) stage 2, GFR 60-89 ml/min, Clotting disorder ([facility]), Congenital heart disease, COPD (chronic obstructive pulmonary disease) ([facility]), Depression, Emphysema of lung ([facility]), GERD (gastroesophageal reflux disease), GERD (gastroesophageal reflux disease), Gout, Headache(784.0), Hernia, Hernia, History of blood clots, History of DVT (deep vein thrombosis), Hyperlipidemia, Insomnia, Irritable bowel syndrome, Kidney stones, Lumbar degenerative disc disease, Lumbar radiculopathy, Obesity, PAM (obstructive sleep apnea), Parkinson disease, Parkinson's disease, Post traumatic stress disorder, Renal disease, Rheumatoid arthritis ([facility]), Stroke ([facility]), Stroke risk, Tracheostomy in place ([facility]), Tremors of nervous system, Type [...] Max:98.5 F (36.9 C) Recent Labs 11/29/23 12511/29/23153611/29/[id number]/29/232033 POCGLU 116* 236* 169* 161* I/O (24Hr): [...] -- -- -- 59 Recent Labs 11/28/23 14211/28/23201411/29/23 0337 11/29/23 0815 11/29/23 1256 11/29/23 1537 11/29/23175511/29/23201711/29/23203311/30/23 0648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 warranty or guarantee of the accuracy or completeness of information in this document.
[2025-05-06 07:32] LABS: Estimated GFR (African America 53 (>=60 mL/min/1.73m^2); Estimated GFR (Non-African Ame 44 (>=60 mL/min/1.73m^2)
== END 2025-05-06 07:15 | disposition home or self-care (01) ==
LOC: LAB 07:14
PROVIDERS: PCP Family Medicine; Visit Provider Family Medicine
DX: R29.898 Other symptoms and signs involving the musculoskeletal system (principal); R41.82 Altered mental status, unspecified; M50.30 Other cervical disc degeneration, unspecified cervical region; Z96.82 Presence of neurostimulator
CPT/HCPCS: 36415; 70470; 70490; 73200; 82565; Q9966

== ENCOUNTER 2025-06-09 10:29 | Outpatient (OUT) | payer MEDICARE, SELFPAY ==
--- OUTSIDE RECORDS SUMMARY | 2025-06-09 10:31 | XMS_ITS | Encounter Summary ---
Author Organization [facility] Address [address] [place] [address] Care Team Providers Care Historic Interpreter Name Role Phone Martine Kovacs MD Primary Care Provider [phone] Say Amato MD Primary Care Provider [phone] Saúl Lunsford MD Unavailable [phone] Source Comments In the event this information is protected by the Federal Confidentiality of Alcohol and Drug AbusePatient Records regulations: The Federal rules restrict any use of the information to criminally investigate or prosecute any alcohol or drug abuse patient.[facility] Encounter Details Date Type Department Care Team (Late st Contact Info) Description 12/09/2014 Patient Msg Medical Records [address] [place] [address] Provider, [facility] RE: Appointment Cancellation Request Social History Tobacco Use Types Packs/Day Years Used Date Smoking Tobacco: Never Cigarettes Smokeless Tobacco: Current Chew Comments:PATIENT CHEWS TOBAC CO - can every 4 days Alcohol Use Standard Drinks/Week Comments No 0 (1 standard drink = 0.6 oz pur e alcohol) Sex and Gender Information Value Date Recorded Sex Assigned at Male 01/03/2020 10:39 PM EDT Legal Sex Male 8:13 AM EST Gender Identity Male 01/03/2020 10:39 PM EDT Sexual Orientation Straight 01/03/2020 10 :39 PM EDT documented as of this encounter Functional Status * Are you deaf or do you have serious difficulty hearing? Answer Date of Assessment Author No 05/13/2014 9:49 AM EDT Delilah Washington (Rn)(Hist), RN * Are you blind or do you have serious difficulty seeing, even when wearing glasses? Answer Date of Assessment Author No 05/13/2014 9:49 AM AUNDREAT Delilah Washington (Rn)(Hist), RN * Do you have serious difficulty walking or climbing stairs? Answer Date of Assessment Author Yes 05/13/2014 9:49 AM AUNDREAT Delilah Washington (Rn)(Hist), RN * Do you have difficulty dressing or bathing? Answer Date of Assessment Author No 05/13/2014 9:49 AM EDT Delilah Washington (Rn)(Hist), RN * Because of a physical, mental, or emotional condition, do you have difficulty doing errands alone such as visiting a doctor's office or shopping? Answer Date of Assessment Author Yes 05/13/2014 9:49 AM Delilah Scales (Rn)(Hist), RN documented as of this encounter Mental Status * Because of a physical, mental, or emotional condition, do you have serious difficulty concentrating, remembering, or making decisions? Answer Entry Date Author Yes 05/13/2014 9:49 AM Delilah Scales (Rn)(Hist), RN documented in this encounter Plan of Treatment Not on file documented as of this encounter Visit Diagnoses Not on filedocumented in this encounter Care Teams Historic Interpreter Relationship Specialty Start Date End Date Martine Kovacs MD [address] [place] [address] PCP - General 11/15/08 07/14/16 Say Amato MD [address] [place] [address] PCP - General Family Medicine 07/15/16 Saúl Lunsford MD [address] [place] [address] Cardiology 01/21/22 documented as of this encounter
--- OUTSIDE RECORDS SUMMARY | 2025-06-09 10:31 | XMS_ITS | Encounter Summary ---
Author Organization [facility] Address [address] [place] [address] Care Team Providers Care Software Application Tester Name Role Phone Martine Kovacs MD Primary Care Provider [phone] Say Amato MD Primary Care Provider [phone] Saúl Lunsford MD Unavailable [phone] Source Comments In the event this information is protected by the Federal Confidentiality of Alcohol and Drug AbusePatient Records regulations: The Federal rules restrict any use of the information to criminally investigate or prosecute any alcohol or drug abuse patient.[facility] Encounter Details Date Type Department Care Team (Late st Contact Info) Description 12/09/2014 Patient Msg Medical Records [address] [place] [address] Provider, Ccf RE: Request an Appointment Social History Tobacco Use Types Packs/Day Years [...] AM AUNDREAT Delilah Washington (Rn)(Hist), RN * Are you blind or do you have serious difficulty seeing, even when wearing glasses? Answer Date of Assessment Author No 05/13/2014 9:49 AM AUNDREAT Delilah Washington (Rn)(Hist), RN * Do you have serious difficulty walking or climbing stairs? Answer Date of Assessment Author Yes 05/13/2014 9:49 AM Delilah Scales (Rn)(Hist), RN * Do you have difficulty dressing or bathing? Answer Date of Assessment Author No 05/13/2014 9:49 AM AUNDREAT Delilah Washington (Rn)(Hist), RN * Because of [...] on filedocumented in this encounter Care Teams Software Application Tester Relationship Specialty Start Date End Date Martine Kovacs MD [address] [place] [address] PCP - General 11/15/08 07/14/16 Say Amato MD [address] [place] [address] PCP - General Family Medicine 07/15/16 Saúl Lunsford MD [address] [place] [address] Cardiology 01/21/22 documented as of this encounter
--- OUTSIDE RECORDS SUMMARY | 2025-06-09 10:31 | XMS_ITS | Encounter Summary ---
Author Organization [facility] Address [address] [place] [address] Care Team Providers Care Examination Scorer Name Role Phone Martine Kovacs MD Primary Care Provider [phone] Say Amato MD Primary Care Provider [phone] Saúl Lunsford MD Unavailable [phone] Source Comments In the event this information is protected by the Federal Confidentiality of Alcohol and Drug AbusePatient Records regulations: The Federal rules restrict any use of the information to criminally investigate or prosecute any alcohol or drug abuse patient.[facility] Encounter Details Date Type Department Care Team (Late st Contact Info) Description 09/14/2014 Patient Msg Medical Records [address] [place] [address] Provider, Ccf RE: Appointment Cancellation Request Social [...] on filedocumented in this encounter Care Teams Examination Scorer Relationship Specialty Start Date End Date Martine Kovacs MD [address] [place] [address] PCP - General 11/15/08 07/14/16 Say Amato MD [address] [place] [address] PCP - General Family Medicine 07/15/16 Saúl Lunsford MD [address] [place] [address] Cardiology 01/21/22 documented as of this encounter
--- OUTSIDE RECORDS SUMMARY | 2025-06-09 10:32 | XMS_ITS | Encounter Summary ---
Author Organization [facility] Address [address] [place] [address] Care Team Providers Care Fluid Dynamicist Name Role Phone Martine Kovacs MD Primary Care Provider [phone] Say Amato MD Primary Care Provider [phone] Saúl Lunsford MD Unavailable [phone] Source Comments In the event this information is protected by the Federal Confidentiality of Alcohol and Drug AbusePatient Records regulations: The Federal rules restrict any use of the information to criminally investigate or prosecute any alcohol or drug abuse patient.[facility] Encounter Details Date Type Department Care Team (Late st Contact Info) Description 10/23/2013 Patient Msg Medical Records [address] [place] [address] Provider, Ccf Appointment Cancellation Request Social History Tobacco Use Types Packs/Day Years Used Date Smoking Tobacco: Never Cigarettes Smokeless Tobacco: Current Chew Comments:PATIENT CHEWS TOBAC CO Alcohol Use Standard Drinks/Week Comments No 0 (1 standard drink = 0.6 oz pur e alcohol) Sex and Gender Information Value Date Recorded Sex Assigned at Male 01/03/2020 10:39 PM EDT Legal Sex Male 8:13 AM EST Gender Identity Male 01/03/2020 10:39 PM EDT Sexual Orientation Straight 01/03/2020 10 :39 PM EDT documented as of this encounter Plan of Treatment Not on file documented as of this encounter Visit Diagnoses Not on filedocumented in this encounter Care Teams Fluid Dynamicist Relationship Specialty Start Date End Date Martine Kovacs MD [address] [place] [address] PCP - General 11/15/08 07/14/16 Say Amato MD [address] [place] [address] PCP - General Family Medicine 07/15/16 Saúl Lunsford MD [address] [place] [address] Cardiology 01/21/22 documented as of this encounter
--- OUTSIDE RECORDS SUMMARY | 2025-06-09 10:32 | XMS_ITS | Encounter Summary ---
Author Organization [facility] Address [address] [place] [address] Care Team Providers Care Drying Oven Attendant Name Role Phone Say Amato MD Primary Care Provider [phone] Saúl Lunsford MD Unavailable [phone] Reason for Visit * Reason Comments Med Refill Encounter Details Date Type Department Care Team ([facility] st Contact Info) Description 04/04/2023 Refill [facility] Heart at [facility] [address] [place] [address] Caryn Hidalgo, CARBURETOR EXPERT [address] [place] [address] Social History Tobacco Use Types Packs/Day Years Used Date Smoking Tobacco: Never Smokeless Tobacco: Never Alcohol Use Standard Drinks/Week Comments Not Currently 0 (1 standard drink = 0.6 oz pur e alcohol) Sex and Gender Information Value Date Recorded Sex Assigned at Male 07/15/2022 7:14 AM EDT Legal Sex Male 9:46 PM EDT Gender Identity Male 07/15/2022 7:14 AM EDT Sexual Orientation Heterosexual or Straight 07/06 7:14 AM EDT documented as of this encounter Plan of Treatment Not on file documented as of this encounter Visit Diagnoses Not on filedocumented in this encounter Additional Health Concerns Infection Onset Date Last Indicated Resolved Time MRSA 09/20/2024 09/20/2024 documented as of this encounter Care Teams Drying Oven Attendant Relationship Specialty Start Date End Date Say Amato MD [address] [facility] [place] [address] PCP - General 05/27/22 Saúl Lunsford MD [address] [place] [address] Consulting Physician Cardiology 09/20/24 documented as of this encounter
--- OUTSIDE RECORDS SUMMARY | 2025-06-09 10:32 | XMS_ITS | Encounter Summary ---
Author Organization [facility] Address [address] [place] [address] Care Team Providers Care Senior Sales Associate Name Role Phone Say Amato MD Primary Care Provider [phone] Saúl Lunsford MD Unavailable [phone] Reason for Visit * Reason Comments Med Refill Encounter Details Date Type Department Care Team ([facility] st Contact Info) Description 10/20/2023 Refill [facility] Heart at [facility] [address] [place] [address] Caryn Hidalgo, COMPACTING MACHINE OPERATOR/TENDER [address] [place] [address] Social History Tobacco Use Types [...] documented as of this encounter Care Teams Senior Sales Associate Relationship Specialty Start Date End Date Say Amato MD [address] [facility] [place] [address] PCP - General 05/27/22 Saúl Lunsford MD [address] [place] [address] Consulting Physician Cardiology 09/20/24 documented as of this encounter
--- OUTSIDE RECORDS SUMMARY | 2025-06-09 10:32 | XMS_ITS | Encounter Summary ---
Author Organization [facility] Address [address] [place] [address] Care Team Providers Care Nutter Up Name Role Phone Say Amato MD Primary Care Provider [phone] Saúl Lunsford MD Unavailable [phone] Encounter Details Date Type Department Care Team (Late st Contact Info) Description 04/09/2025 Orders Only [facility] [address] [place] [id number] Lemuel Spain MD [address] [place] [address] Social History Tobacco Use Types Packs/Day Years Used Date Smoking Tobacco: Never Smokeless Tobacco: Never Alcohol Use Standard Drinks/Week Comments Not Currently 0 (1 standard drink = 0.6 oz pur e alcohol) Humiliation, Afraid, Rape, a nd Kick questionnaire Answer Date Recorded Within the last year, have y ou been afraid of your partner or ex-partner? Patient unable to answer 11/02/2024 Emotionally Abused Not on file 11/02/2024 Physically Abused Not on file 11/02/2024 Sexually Abused Not on file 11/02/2024 PHQ-2 Answer Date Recorded Patient Health Questionnaire-2 Score 0 11/29/2024 Sex and Gender Information Value Date Recorded Sex Assigned at Male 07/15/2022 7:14 AM EDT Legal Sex Male 9:46 PM EDT Gender Identity Male 07/15/2022 7:14 AM EDT Sexual Orientation Heterosexual or Straight 07/06 7:14 AM EDT documented as of this encounter Plan of Treatment Not on file documented as of this encounter Procedures Procedure Name Priority Date/Time Associated Diagnosis Comments CARDIAC DEVICE CHECK - REMOTE - LOOP RECORDER (ILR) Routine 04/09/2025 12:00 AM EDT documented in this encounter Results * Cardiac device check - Remote loop recorder (ILR) (04/09/2025 12:00 AM EDT) Anatomical Region Laterality Modality Other 04/09/2025 Lemuel Spain MD CV IMPLANTABLE CARDIAC DEVICE PA OCEDURES Final Result documented in this encounter Visit Diagnoses Not on filedocumented in this encounter Additional Health Concerns Infection Onset Date Last Indicated Resolved Time MRSA 09/20/2024 09/20/2024 documented as of this encounter Care Teams Nutter Up Relationship Specialty Start Date End Date Say Amato MD [address] [facility] [address] [address] PCP - General 05/27/22 Saúl Lunsford MD [address] [place] [address] Consulting Physician Cardiology 09/20/24 documented as of this encounter
--- OUTSIDE RECORDS SUMMARY | 2025-06-09 10:32 | XMS_ITS | Encounter Summary ---
Author Organization [facility] Address [address] [place] [address] Care Team Providers Care Patternmaker Sample Name Role Phone Say Amato MD Primary Care Provider [phone] Reason for Visit * Reason Comments Med Refill Encounter Details Date Type Department Care Team (Late st Contact Info) Description 06/01/2025 Refill [facility] [address] [facility] [address] [place] [phone] Ju Bautista, NUCLEAR CHEMISTRY TECHNICIAN [address] [id number] Intention tremor Social History Tobacco Use Types Packs/Day Years Used Date Smoking Tobacco: Never Smokeless Tobacco: Never Sex and Gender Information Value Date Recorded Sex Assigned at Male 01/06/2024 8:14 AM EDT Legal Sex Male 7:41 PM EDT Gender Identity Male 01/06/2024 8:14 AM EDT Sexual Orientation Not on file documented as of this encounter Plan of Treatment Not on file documented as of this encounter Visit Diagnoses Diagnosis Intention tremor Essential and other specified forms of tremor documented in this encounter Care Teams Patternmaker Sample Relationship Specialty Start Date End Date Say Amato MD PCP - General Family Medicine 03/24/24 documented as of this encounter
--- OUTSIDE RECORDS SUMMARY | 2025-06-09 10:32 | XMS_ITS | Encounter Summary ---
Author Organization [facility] Address [address] [place] [address] Care Team Providers Care Metallurgy Laboratory Technician Name Role Phone Say Amato MD Primary Care Provider [phone] Saúl Lunsford MD Unavailable [phone] Reason for Visit * Reason Comments Med Refill Encounter Details Date Type Department Care Team (Late st Contact Info) Description 05/15/2023 Refill [facility] Cardiology [address] [place] [phone] Darlene Gloria, COLLECTION TELLER [address] [place] [address] Benign hypertensive heart disease with heart failure (CMS/HCC) Social History Tobacco Use Types Packs/Day Years [...] as of this encounter Visit Diagnoses Diagnosis Benign hypertensive heart disease with heart failure (CMS/HCC) documented in this encounter Additional Health Concerns Infection Onset Date Last Indicated Resolved Time MRSA 09/20/2024 09/20/2024 documented as of this encounter Care Teams Metallurgy Laboratory Technician Relationship Specialty Start Date End Date Say Amato MD [address] [facility] [address] [address] PCP - General 05/27/22 Saúl Lunsford MD [address] [place] [address] Consulting Physician Cardiology 09/20/24 documented as of this encounter
--- OUTSIDE RECORDS SUMMARY | 2025-06-09 10:32 | XMS_ITS | Clinical Summary ---
Author Organization [facility] Address [address] [place] [address] Care Team Providers Care Cylinder Machine Operator Pulp Drier Name Role Phone Say Amato MD Primary Care Provider [phone] Saúl Lunsford MD Unavailable [phone] Allergies Active Allergy Reactions Criticality Noted Date Comments Beta-Blockers (Beta-Adrenergic Blocking Agts) Itching,Other: See Comments 07/24/2011 Hydralazine Unknown 05/19/2013 Headache, nausea, sick Gabapentin Other: See Comments,Unknown 11/25/2008 Unknown Diazepam Unknown 03/03/2008 Was on the ground after took it Medications * This document contains information received from the source organization and may not represent a complete record from that organization. cloNIDine 0.2 mg tablet Take 0.2 mg by mouth twice daily. 0.2 in AM, 0.1 in PM Active topiramate (TOPAMAX) 50 mg tablet Take 100 mg by mouth twice daily. Active montelukast (SINGULAIR) 10 mg tablet Take 10 mg by mouth daily at bedtime. Active warfarin (COUMADIN) 10 mg tablet Take 1 tablet by mouth every 48 hours. Take 7.5mg one day, then 10mg the other day 9 Active Additional Information Patient taking differently: 5 mgORALDAILY, (No instructions reported), Reason: Dosage Adjustment, Reported on 09/19/2023 insulin detemir U-100 (LEVEMIR FLEXTOUCH U-100 INSULIN) 100 unit/mL (3 mL) injection pen Inject 56 Units subcutaneously every morning. Active oxybutynin ER (DITROPAN XL) 10 mg 24 hr tablet Take 10 mg by mouth once daily. Active pantoprazole DR (PROTONIX) 40 mg tablet Take 40 mg by mouth once daily. Active furosemide (LASIX) 40 mg tablet Take 1 tablet by mouth twice daily. 0 Active atorvastatin (LIPITOR) 10 mg tablet Take 1 tablet by mouth once daily. 90 tablet 1 0 Active potassium chloride ER (KLOR-CON M20) 20 mEq tablet Take 1 tablet by mouth once daily. 0 Active albuterol HFA (PROVENTIL HFA, VENTOLIN HFA) 90 mcg/actuation inhaler albuterol sulfate HFA 90 mcg/actuation aerosol inhaler Active NIFEdipine ER (PROCARDIA XL) 90 mg 24 hr tablet nifedipine ER 90 mg tablet,extended release 24 hr take 1 tablet by mouth once daily Active tiotropium (SPIRIVA WITH HANDIHALER) 18 mcg inhalation capsule Spiriva with HandiHaler 18 mcg and inhalation capsules Active traMADol (ULTRAM) 50 mg tablet tramadol 50 mg tablet take 2 tablets by mouth twice a day Active candesartan (ATACAND) 8 mg tablet Take 8 mg by mouth once daily. Active ALOE VERA ORAL Take by mouth. Active cephALEXin (KEFLEX) 500 mg capsule Take 1 capsule by mouth four times daily. 8 capsule 2 Active Additional Information Patient not taking.Reason: Discontinued by Patient, Reported on 11/06/2023 HYDROcodone-ac etaminophen (NORCO) 5-325 mg per tabletIndicati ons:Post-op pain Take 1 tablet by mouth every 8 hours as needed for pain. 9 tablet 2 Active Additional Information Patient not taking.Reason: Discontinued by Patient, Reported on 11/06/2023 Insulin [place], Disposable, (BD INSULIN PEN NEEDLE UF) 29 gauge x / Use as directed sq bid Active cetirizine (ZYRTEC) 10 mg tablet Take 1 tablet by mouth once daily. 3 Active metFORMIN (GLUCOPHAGE) 500 mg tablet Take 1 tablet by mouth two times a day. 3 Active JARDIANCE 10 mg tablet Take 1 tablet by mouth every afternoon. 3 Active indomethacin (INDOCIN) 50 mg capsule TAKE 1 CAPSULE BY MOUTH THREE TIMES A DAY NEEDED FOR PAIN WITH FOOD OR MILK 30 4 Active TRESIBA FLEXTOUCH U-100 100 unit/mL (3 mL) injection pen 4 Active lidocaine (LIDODERM) 5 % Apply 1 Patch as directed every 24 hours. 3 Active INCRUSE ELLIPTA 62.5 mcg/actuation inhaler 4 Active Active Problems Problem Noted Date Diagnosed Date Difficult intravenous access 01/21/2022 Assessment & Plan (01/21/2022 7:44 AM EDT): Has required US guidance in the past. Obstructive sleep apnea syndrome 01/21/2022 Assessment & Plan (01/21/2022 8:13 AM EDT): S/p uvulectomy, does not wear CPAP. Parkinson's disease 01/21/2022 COPD (chronic obstructive pulmonary disease) Assessment & Plan (01/21/2022 8:22 AM EDT): Stable, on albuterol PRN, Singulair. States he has SOB with exertion in cold weather. Denies recent use of albuterol, cough or SOB. Lungs CTA on exam. Tobacco use 01/21/2022 Assessment & Plan (01/21/2022 8:15 AM EDT): Rare use of tobacco chew products. CHF (congestive heart failure) 01/21/2022 Overview (01/21/2022): ? Assessment & Plan (01/22/2022 3:34 PM EDT): EF 55-60% on echocardiogram 07/09/2021. Right heart cath 10/16/2018 with mild to moderately elevated right atrial pressure in absence of pulmonary HTN. On Lasix. Euvolemic on exam, denies recent SOB. Follows with cardiology. CKD (chronic kidney disease) 01/21/2022 Assessment & Plan (01/21/2022 8:21 AM EDT): Creatinine 1.71, eGFR 41 on 11/28/21. BMP pending. Recurrent major depression in partial remission 11/16/2019 Obesity, Class III, BMI >= 40 10/09/2018 Assessment & Plan (01/21/2022 7:42 AM EDT): Body mass index is 41.92 kg/m . Volume overload 10/08/2018 Chronic deep vein thrombosis (DVT) of proximal vein of both lower extremities 08/06/2018 Pulmonary embolus with infarction 08/06/2018 Assessment & Plan (01/22/2022 7:39 AM EDT): H/o PE/DVT in 2006, 2018. Prothrombin gene mutation. On warfarin, states his PCP is giving lovenox bridging instructions for surgery. Tracheal stenosis 05/13/2014 Assessment & Plan (01/21/2022 8:15 AM EDT): Had tracheostomy, closure in 2010. Tremor 07/24/2011 Type 2 diabetes mellitus, wi th long-term current use of insulin Assessment & Plan (01/21/2022 8:21 AM EDT): On Levemir. Has continuous glucose monitor. HgA1C pending. Essential hypertension Assessment & Plan (01/21/2022 7:43 AM EDT): Stable, on rx. BP 134/84 in office today. Esophageal reflux Assessment & Plan (01/21/2022 8:16 AM EDT): Stable, on rx. 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 Denies recent CVA or TIA, not currently on ASA. Benign shuddering attacks Immunizations Immunization Administration Dates Next Due influenza (HD-IIV3) vaccine, age 65+ yr, high dose, trivalent, PF (FLUZONE HIGH-DOSE) 07/06/2015 influenza (IIV3) vaccine, tr ivalent (AFLURIA, FLULAVAL, FLUVIRIN, FLUZONE) 06/17/2012 influenza (IIV3) vaccine, tr ivalent, PF (AFLURIA, FLUARIX, FLULAVAL, FLUVIRIN, FLUZONE) 06/25/2013 influenza (IIV4) vaccine, ag e 6 mo - 64 yr, quadrivalent, PF (AFLURIA, FLUARIX, FLULAVAL, FLUZONE) 08/10/2018,09/13/2014 influenza (ccIIV4) vaccine, age 6+ mo, quadrivalent, PF (FLUCELVAX) 07/07/2020,07/24/2018 influenza vaccine, unspecified formulation 08/01,09/10/2017,08/05/2016 influenza vaccine, whole virus 07/18/2015 pneumococcal conjugate (PCV1 3) vaccine, 13 valent (PREVNAR 13) 11/13/2015 pneumococcal polysaccharide (PPV23) vaccine, 23 valent (PNEUMOVAX 23) 08/11/2017,09/11/2010 Family History Medical History Relation Comments Ischemic Heart Disease Father CABG X3 Heart disease Maternal Grandmother Ischemic Heart Disease Mother at t he age of 63 Heart disease Paternal Grandmother Anesthesia Problems No Family History Relation Status Comments Father Maternal Grandmother Mother Paternal Grandmother Social History Tobacco Use Types Packs/Day Years Used Date Smoking Tobacco: Never Cigarettes Smokeless Tobacco: Current Chew Last attempted to quit: 09/17/2015 Tobacco Cessation:Ready to Q uit: Not Asked; Counseling Given: Not Answered Alcohol Use Standard Drinks/Week Comments No 0 (1 standard drink = 0.6 oz pur e alcohol) AUDIT-C Answer Date Recorded Q1: How often do you have a drink containing alc ohol? Never 01/04/2020 Average Number of Drinks Not on file 020 Frequency of Binge Drinking Not on file 12/06 PHQ-2 Answer Date Recorded PHQ-2 score 4 11/04/2023 Area Deprivation Index Answer Date Benigno rded National Score (1-100), lower number is lower ri sk Not on file 09/10/2020 State Score (1-10), lower number is lower risk N ot on file 09/10/2020 Data from: https://www.neighborhoodatlas.medicine.[facility]/. Last address used for calculation Not on file 09/10/2020 Sex and Gender Information Value Date Recorded Sex Assigned at Male 01/03/2020 10:39 PM EDT Legal Sex Male 8:13 AM EST Gender Identity Male 01/03/2020 10:39 PM EDT Sexual Orientation Straight 01/03/2020 10 :39 PM EDT Last Filed Vital Signs Vital Sign Reading Time Taken Comments Blood Pressure 127/89 11/06/2023 9:57 AM EST Pulse 81 11/06/2023 9:57 AM EST Temperature 36 C (96.8 F) 01/30/2022 5:56 PM EDT Respiratory Rate 16 01/30/2022 5:56 PM EDT Oxygen Saturation 95% 11/06/2023 9:57 AM EST Inhaled Oxygen Concentration - - Weight 123.4 kg (272 lb) 11/06/2023 9:57 AM EST Height 175.3 cm (5' 9 ) 11/06/2023 9:57 AM EST Body Mass Index 40.17 11/06/2023 9:57 AM EST Plan of Treatment Health Maintenance Due Date Last Done Comments Diabetic Foot Exam 1970 Dilated Retinal Exam 1970 Urine Albumin:Creatinine Ratio 1970 Annual PCP Team Chronic Dise ase Visit 1978 Anxiety Screening 1978 HIV Screening 1978 Hepatitis C Screening 1978 LDL Cholesterol 1978 DTaP,Tdap,Td Vaccine (1 - Tdap) 10/07/[address] Colonography 2005 Cologuard (FIT-DNA) 2005 Colonoscopy 2005 Colorectal Cancer Screening 2005 Fecal Occult Blood 2005 Sigmoidoscopy 2005 Shingrix Vaccine (1 of 2) 2010 RSV Vaccine (1 - Risk 60-74 years 1-dose series) 2020 HbA1C 04/22/2022 01/21/2022, 09/0 06/2018, 06/14/2018 Pneumococcal Vaccine: 50+ (3 of 3 - PCV20 or PCV21) 08/11/2022 08/11/2017, 11/13/2015, 09/11/2010 Hemoglobin/Hematocrit 10/27/2023 10/27/2022 , 01/21/2022, 06/15/2021, Additional history exists Serum Creatinine 10/27/2023 10/27/2022, , 11/28/2021, Additional history exists Medicare Advantage Annual [facility] Visit 10/06/2024 Influenza Vaccine (#1) 2025 , 07/07/2020, 08/01/2019, Additional history exists Prostate Cancer Screening Discussion 02/21/2028 02/20/2023 Medical Devices Implanted Type Area Public Speaker Device Identifier Shelf Expiration Date Model / Serial / Lot Ipg Activa Sc Dbs Dual Extn - [id number] Implanted:Qty: 1 on 06/30/2013 at [facility] Neurostimulator Left: Chest [employer] 10/19/2014 [id number] / [id number] / N/A Description:ACTIVA SC Multi- program Neurostimulator for deep Brain Stimulation Neurostimulator Activa Sc 0-10.5v 2-250hz 0-25.5ma 2.4inx2.2in .4in - [id number] Implanted:Qty: 1 on 07/24/2016 at [facility] Neurostimulator Left: Chest Wall [employer] 12/03/2017 [id number] / / [id number] 32H Neurostimulator Activa Sc 0-10.5v 2-250hz 0-25.5ma 2.4inx2.2in .4in - [id number] Implanted: 019 at [facility] (Quantity not on file) Neurostimulator Left: Chest [employer] 07/03/2020 [id number] / [id number] 46H / Neurostimulator Activa Sc 0-10.5v 2-250hz 0-25.5ma 2.4inx2.2in .4in - [id number] Implanted:Qty: 1 on 01/30/2022 at [facility] Neurostimulator [employer] 03/02/2023 [id number] / [id number] 64H / Procedures Procedure Name Priority Date/Time Associated Diagnosis Comments HEMOGLOBIN A1C Routine 01/21/2022 9:30 AM EDT Type 2 diabetes mellitus with other specified complication, with long-term current use of insulin (HCC) Pre-op evaluation CBC AUTO WO DIFF Routine 01/21/2022 9:30 AM EDT Essential tremor BASIC METABOLIC PANEL Routine 01/21/2022 9:30 AM EDT Essential tremor from Last 3 Months or Most Recently Relevant to Health Maintenance Results * (ABNORMAL) HGB A1C (01/21/2022 9:30 AM EDT) Hemoglobin A1C 8.3(H) 4.3 - 5.6 % 01/21/2022 8:36 PM EDT [facility] Comment:Vincentian Diabetes As sociation guidelines indicate that patients with HgbA1c in the range 5.7-6.4% are at increased risk for development of diabetes, and intervention by lifestyle modification may be beneficial. HgbA1c greater or equal to 6.5% is considered diagnostic of diabetes. Estimated Average Glucose 192 mg/dL 01/21/2022 8:36 PM EDT [facility] Comment:eAG: (Estimated aver age glucose) is a calculated value from HgbA1c and is housing management representative of the average blood glucose level in the last 2-3 month period. Blood BLOOD SPECIMEN / Unknown Venipuncture / Unknown 01/21/2022 9:30 AM EDT 01/21/2022 9:30 AM EDT us Reema Valdes PA-C LABORATORY Final Result [facility] [address] [address], * CBC (01/21/2022 9:30 AM EDT) WBC 8.54 3.70 - 11.00 k/uL 01/21/2022 11:25 AM EDT [facility] RBC 4.94 4.20 - 6.00 m/uL 01/21/2022 11:25 AM EDT [facility] Hemoglobin 15.5 13.0 - 17.0 g/dL 01/21/2022 11:25 AM EDT [facility] Hematocrit 48.6 39.0 - 51.0 % 01/21/2022 11:25 AM EDT [facility] MCV 98.4 80.0 - 100.0 fL 01/21/2022 11:25 AM EDT [facility] MCH 31.4 26.0 - 34.0 pg 01/21/2022 11:25 AM EDT [facility] MCHC 31.9 30.5 - 36.0 g/dL 01/21/2022 11:25 AM EDT [facility] RDW-CV 14.6 11.5 - 15.0 % 01/21/2022 11:25 AM EDT [facility] Platelet Count 171 150 - 400 k/uL 01/21/2022 11:25 AM EDT [facility] MPV 11.1 9.0 - 12.7 fL 01/21/2022 11:25 AM EDT [facility] Absolute nRBC <0.01 <0.01 k/uL 01/21/2022 11:25 AM EDT [facility] Blood BLOOD SPECIMEN / Unknown Venipuncture / Unknown 01/21/2022 9:30 AM EDT 01/21/2022 9:30 AM EDT Paul Maguire PA-C LABORATORY Final Result [facility] [place] [address], * (ABNORMAL) BASIC METABOLIC PNL (01/21/2022 9:30 AM EDT) [facility] Glucose 62(L) 74 - 99 mg/dL 01/21/2022 1:40 PM EDT [facility] Comment: The [place] Diabetes Association (ADA) provides guidance for cutoff values for fasting glucose and random glucose. The ADA defines fasting as no caloric intake for at least 8 hours. Fasting plasma glucose results between 100 to 125 mg/dL indicate increased risk for diabetes (prediabetes). Fasting plasma glucose results greater than or equal to 126 mg/dL meet the criteria for diagnosis of diabetes. In the absence of unequivocal hyperglycemia, results should be confirmed by repeat testing. In a patient with classic symptoms of hyperglycemia or hyperglycemic crisis, random plasma glucose results greater than or equal to 200 mg/dL meet the criteria for diagnosis of diabetes. Reference: Standards of Medical Care in Diabetes 2016, [place] Diabetes Association. Diabetes Care. 2016.39(Suppl 1). BUN 29(H) 9 - 24 mg/dL 01/21/2022 1:[address] [facility] Creatinine 1.61(H) 0.73 - 1.22 mg/dL 01/21/2022 1:[address] [facility] Sodium 149(H) 136 - 144 mmol/L 01/21/2022 1:[address] [facility] Potassium 4.1 3.7 - 5.1 mmol/L 01/21/2022 1:[address] [facility] Chloride 111(H) 97 - 105 mmol/L 01/21/2022 1:40 PM T [facility] CO2 27 22 - 30 mmol/L 01/21/2022 1:[address] [facility] Anion Gap 11 9 - 18 mmol/L 01/21/2022 1:[address] [facility] Calcium, Total 9.3 8.5 - 10.2 mg/dL 01/21/2022 1:[address] [facility] Estimated Glomerular Filtration Rate 48(L) >=60 mL/min/1. 73m 01/21/2022 1:[address] [facility] Comment:Estimated Glomerular Filtration Rate (eGFR) is calculated using the 2020 CKD-EPI creatinine equation. This equation utilizes serum creatinine, sex, and age as parameters. The creatinine assay has traceable calibration to isotope dilution- mass spectrometry. Refer to KDIGO guidelines for clinical interpretation. In patients with unstable renal function, e.g. those with acute kidney injury, the eGFR may not accurately reflect actual GFR. Blood BLOOD SPECIMEN / Unknown Venipuncture / Unknown 01/21/2022 9:30 AM EDT 01/21/2022 9:30 AM EDT us Paul Maguire PA-C LABORATORY Final Result [facility] [address] [place] [address], [place] from Last 3 Months or Most Recently Relevant to Health Maintenance Insurance [facility] DUAL COMPLETE HMO POS SNP Member Subscriber Plan / Payer (Ef fective 2023-Present) Name:Jono Grace Relation to Subscriber:Self Name:Jono Grace Payer ID:[id number] (NAIC) Group ID:[id number] Type:Medicare Address: [address] Advance Directives Documents on File Type Date Recorded Patient Director Of Land Acquisition Expl anation Advance Directive(s) 06/24/2019 2:00 PM Care Teams Cylinder Machine Operator Pulp Drier Relationship Specialty Start Date End Date Say Amato MD PCP - General Family Medicine 07/15/16 Saúl Lunsford MD Cardiology 01/21/22
--- OUTSIDE RECORDS SUMMARY | 2025-06-09 10:32 | XMS_ITS | Encounter Summary ---
Author Organization [facility] Address [address] [place] [address] Care Team Providers Care Glue Mill Operator Name Role Phone Say Amato MD Primary Care Provider [phone] Saúl Lunsford MD Unavailable [phone] Source Comments In the event this information is protected by the Federal Confidentiality of Alcohol and Drug AbusePatient Records regulations: The Federal rules restrict any use of the information to criminally investigate or prosecute any alcohol or drug abuse patient.[facility] Encounter Details Date Type Department Care Team (Late st Contact Info) Description 06/16/2019 Patient Msg Medical Records [address] [place] [address] Provider, [facility] RE: Patient Registration Completed Social History Tobacco Use Types Packs/Day Years Used Date Smoking Tobacco: Never Cigarettes Smokeless Tobacco: Former Chew Quit: 09/17/2015 Alcohol Use Standard Drinks/Week Comments No 0 [...] hearing? Answer Date of Assessment Author No 10/19/2018 2:00 PM Lisha Sewell RN * Are you blind or do you have serious difficulty seeing, even when wearing glasses? Answer Date of Assessment Author No 10/19/2018 2:00 PM Lisha Sewell RN * Do you have serious difficulty walking or climbing stairs? Answer Date of Assessment Author Yes 10/19/2018 2:00 PM Lisha Sewell RN * Do you have difficulty dressing or bathing? Answer Date of Assessment Author No 10/19/2018 2:00 PM Lisha Sewell RN * Because of a physical, mental, or emotional condition, do you have difficulty doing errands alone such as visiting a doctor's office or shopping? Answer Date of Assessment Author Yes 10/19/2018 2:00 PM Lisha Sewell RN documented as of this encounter Mental Status * Because of a physical, mental, or emotional condition, do you have serious difficulty concentrating, remembering, or making decisions? Answer Entry Date Author Yes 10/19/2018 2:00 PM Lisha Sewell RN documented in this encounter Plan of Treatment Not on file documented as of this encounter Visit Diagnoses Not on filedocumented in this encounter Care Teams Glue Mill Operator Relationship Specialty Start Date End Date Say Amato MD PCP - General Family Medicine 07/15/16 Saúl Lunsford MD Cardiology 01/21/22 documented as of this encounter
--- OUTSIDE RECORDS SUMMARY | 2025-06-09 10:32 | XMS_ITS | Encounter Summary ---
Author Organization [facility] Address [address] [place] [address] Care Team Providers Care Control Specialist Name Role Phone Say Amato MD Primary Care Provider [phone] Saúl Lunsford MD Unavailable [phone] Reason for Visit * Reason Comments Med Refill Encounter Details Date Type Department Care Team (Late st Contact Info) Description 01/24/2023 Refill [facility] [address] [place] [address] Caryn Hidalgo, PRODUCTION SUPPLY EQUIPMENT TENDER [address] [place] [address] Social History Tobacco Use Types [...] Heterosexual or Straight 07/06 7:14 AM EDT COVID-19 Exposure Response Date Recorded In the last 10 days, have yo u been in contact with someone who was confirmed or suspected to have Coronavirus/COVID-19? No / Unsure 01/17/2023 9:01 AM EDT documented as of this encounter Plan of Treatment Not on file documented as of this encounter Visit Diagnoses Not on filedocumented in this encounter Additional Health Concerns Infection Onset Date Last Indicated Resolved Time MRSA 09/20/2024 09/20/2024 documented as of this encounter Care Teams Control Specialist Relationship Specialty Start Date End Date Say Amato MD [address] [facility] [address] [address] PCP - General 05/27/22 Saúl Lunsford MD [address] [place] [address] Consulting Physician Cardiology 09/20/24 documented as of this encounter
--- OUTSIDE RECORDS SUMMARY | 2025-06-09 10:32 | XMS_ITS | Encounter Summary ---
Author Organization [employer] Address [id number] [address] [place] [address] Care Team Providers Care Fruit Washer Name Role Phone Say Amato MD Primary Care Provider [phone] Reason for Visit * Reason Onset Date Comments Ins out of network 11/15/2022 Encounter Details Date Type Department Care Team (Late st Contact Info) Description 11/15/2022 Telephone [facility] Neurology [address] [place] [id number] Brandi George Ins out of network Social History Tobacco Use Types Packs/Day Years Used Date Smoking Tobacco: Never Smokeless Tobacco: Former Chew Quit: 10/06/2014 Alcohol Use Standard Drinks/Week Comments No 0 (1 standard drink = 0.6 oz pur e alcohol) Childcare Answer Date Recorded Childcare Unknown 03/17/2019 Employment Answer Date Recorded Employment Unknown 03/17/2019 Hunger Screening Answer Date Recorded Within the past 12 months we worried whether our food would run out before we got money to buy more. Never True 10/27/2022 Within the past 12 months th e food we bought just didn't last and we didn't have money to get more. Never True 10/27/2022 Purpose - Life Answer Date Recorded Purpose and direction in life Unknown Sex and Gender Information Value Date Recorded Sex Assigned at Not on file Legal Sex Male 12:11 PM EDT Gender Identity Not on file Sexual Orientation Not on file COVID-19 Exposure Response Date Recorded In the last month, have you been in contact with someone who was confirmed or suspected to have Coronavirus / COVID-19? No / Unsure 10/27/2022 11:04 AM EST documented as of this encounter Miscellaneous Notes * Telephone Encounter - Brandi Ariel - 11/15/2022 1:46 PM EST Received new patient referral. Please call patient to schedule a new patient appointment for Parkinson's disease. *[facility] OR OFFER DR. HILARIO, DR. NATHAN IN [place] Please make sure to verify patient insurance. PLEASE VERIFY IF THIS IS WORKERS COMP AND DOCUMENT (We do not accept any new workers comp cases) * Telephone Encounter - Roderick Corona - 11/15/2022 1:46 PM EST Patient's insurance is out of network. [facility] Medicare Advantage documented in this encounter Plan of Treatment Not on file documented as of this encounter Visit Diagnoses Not on filedocumented in this encounter Care Teams Fruit Washer Relationship Specialty Start Date End Date Say Amato MD PCP - General 06/15/18 documented as of this encounter
--- OUTSIDE RECORDS SUMMARY | 2025-06-09 10:32 | XMS_ITS | Encounter Summary ---
Author Organization [facility] Address [address] [place] [address] Care Team Providers Care Wall Cleaner Name Role Phone Say Amato MD Primary Care Provider [phone] Saúl Lunsford MD Unavailable [phone] Source Comments In the event this information is protected by the Federal Confidentiality of Alcohol and Drug AbusePatient Records regulations: The Federal rules restrict any use of the information to criminally investigate or prosecute any alcohol or drug abuse patient.[facility] Encounter Details Date Type Department Care Team (Late st Contact Info) Description 06/15/2019 Patient Msg Neurological [facility] [address] [place] [id number] Provider, [facility] instructions Social History Tobacco Use Types Packs/Day Years [...] on filedocumented in this encounter Care Teams Wall Cleaner Relationship Specialty Start Date End Date Say Amato MD PCP - General Family Medicine 07/15/16 Saúl Lunsford MD Cardiology 01/21/22 documented as of this encounter
--- OUTSIDE RECORDS SUMMARY | 2025-06-09 10:32 | XMS_ITS | Encounter Summary ---
Author Organization [facility] Address [address] [place] [address] Care Team Providers Care Senior Engineering Manager Name Role Phone Martine Kovacs MD Primary Care Provider [phone] Say Amato MD Primary Care Provider [phone] Saúl Lunsford MD Unavailable [phone] Source Comments In the event this information is protected by the Federal Confidentiality of Alcohol and Drug AbusePatient Records regulations: The Federal rules restrict any use of the information to criminally investigate or prosecute any alcohol or drug abuse patient.[facility] Encounter Details Date Type Department Care Team (Late st Contact Info) Description 11/15/2008 Patient Msg Medical Records [address] [place] [address] Provider, [facility] RE: Patient Registration Completed Social History Tobacco Use Types Packs/Day Years Used Date Smoking Tobacco: Never Alcohol Use Standard Drinks/Week Comments Not Asked 0 (1 standard drink = 0.6 oz [...] on filedocumented in this encounter Care Teams Senior Engineering Manager Relationship Specialty Start Date End Date Martine Kovacs MD [address] [place] [address] PCP - General 11/15/08 07/14/16 Say Amato MD [address] [place] [id number] PCP - General Family Medicine 07/15/16 Saúl Lunsford MD [address] [place] [address] Cardiology 01/21/22 documented as of this encounter
--- OUTSIDE RECORDS SUMMARY | 2025-06-09 10:32 | XMS_ITS | Clinical Summary ---
Author Organization [employer] Address [id number] [address] [place] [address] Care Team Providers Care Chuck Wagon Cook Name Role Phone Say Amato MD Primary Care Provider [phone] Allergies Active Allergy Reactions Criticality Noted Date Comments Beta-Blockers (Beta-Adrenergic Blocking Agts) Headache 06/12/2018 Diazepam 05/19/2013 Was on the ground after took it Gabapentin Other (See Comments) 11/25/2008 Unknown Hydralazine 05/19/2013 Headache, nausea, sick Medications atorvastatin (LIPITOR) 10 mg tablet Take 10 mg by mouth nightly. Active topiramate (TOPAMAX) 100 mg tablet Take 100 mg by mouth 2 (two) times a day. Active furosemide (LASIX) 40 mg tablet Take 40 mg by mouth 2 (two) times a day before meals. Active meclizine HCl (MECLIZINE ORAL) Take 25 mg by mouth daily as needed. Active potassium chloride (K-DUR,KLOR-CON) 10 MEQ CR tablet Take 20 mEq by mouth 2 (two) times a day. Active warfarin (COUMADIN) 7.5 mg tablet Take 7.5 mg by mouth daily. Friday Active traMADol (ULTRAM) 50 mg tablet Take 100 mg by mouth 2 (two) times daily at 0800 and 1500. Active montelukast (SINGULAIR) 10 mg tablet Take 10 mg by mouth daily. 11/28/19 Active pantoprazole (PROTONIX) 40 mg EC tablet Take 40 mg by mouth daily. 12/02/19 19 Active cloNIDine (CATAPRES) 0.2 mg tablet Take 0.2 mg by mouth 2 (two) times a day. 12/18/19 Active levalbuterol (XOPENEX) 1.25 mg/3 mL nebulizer solution Inhale 1 ampule by nebulization every 4 (four) hours as needed for wheezing. Active warfarin (COUMADIN) 10 mg tablet Take 10 mg by mouth daily. TAKE EVERY OTHER DAY. ALTERNATE WITH 7.5MG COUMADIN Active LEVEMIR FLEXTOUCH U-100 INSULN 100 unit/mL (3 mL) insulin pen Inject 56 Units under the skin every morning before breakfast. 01/12/20 Active amLODIPine (NORVASC) 5 mg tablet Take 5 mg by mouth daily. Active oxybutynin XL (DITROPAN-XL) 10 mg 24 hr tablet Take 10 mg by mouth daily. Active umeclidinium (INCRUSE ELLIPTA) 62.5 mcg/actuation blister with device Inhale 1 puff daily. Active lidocaine (LIDODERM) 5 % Place 1 patch on the skin daily. Remove & Discard patch within 12 hours or as directed by MD 30 patch 10/27/19 Active ondansetron ODT (ZOFRAN ODT) 4 mg disintegrating tablet Dissolve 1 tablet (4 mg total) on tongue every 8 (eight) hours as needed for nausea for up to 10 doses. 10 tablet 10/27/19 23 Active apixaban (ELIQUIS) 5 mg tablet Take 1 tablet (5 mg total) by mouth in the morning and 1 tablet (5 mg total) before bedtime. Active Active Problems Problem Noted Date Diagnosed Date Hypokalemia 12/22/2018 Hematuria, gross 12/01/2018 Urinary tract infection without hematuria 2018 Overview (01/05/2019): 12/01/18: Proteus UTI November 18, 2018 with gross hematuria. 01/05/19: Negative CT and normal cysto. Urge incontinence of urine 12/01/2018 Overview (01/05/2019): 12/01/18: Urge incontinence. Will eval further with hematuria workup 01/05/19: Rx for oxybutynin 5 mg bid provided Elevated PSA 12/01/2018 Overview (12/01/2018): psa was 4.34. Was checked at time of uti which can falsely elevate this. In light of his significant comorbidities it is very unlikely this is significant Low back pain 11/06/2018 CHF (congestive heart failure) 11/06/2018 Subarachnoid bleed 06/12/2018 Asthma BMI 45.0-49.9, adult Obstructive sleep apnea syndrome Overview (12/09/2018): resolved after wt lost Overview: S/p Tracheotomy Hyperlipidemia Essential hypertension SOB (shortness of breath) Congenital heart disease Resolved Problems Problem Noted Date Diagnosed Date Resolved Date Age-related nuclear cataract, right 08/17/2019 08/17/2019 Age-related nuclear cataract, left 07/20/2019 07/20/2019 Immunizations Immunization Administration Dates Next Due Influenza, Im Trivalent Preservative 07/18/2015 Family History Medical History Relation Name Comments Kidney disease Father eddie grace Heart disease Mother cate pinto Relation Name Status Comments Father eddie grace Mother cate pinto Social History Tobacco Use Types Packs/Day Years [...] on file Sexual Orientation Not on file Last Filed Vital Signs Vital Sign Reading Time Taken Comments Blood Pressure 166/102 03/22/2024 7:06 PM EDT Pulse 65 03/22/2024 7:06 PM EDT Temperature 37.3 C (99.2 F) 03/22/2024 7:06 PM EDT Respiratory Rate 20 03/22/2024 7:06 PM EDT Oxygen Saturation 97% 03/22/2024 7:06 PM EDT Inhaled Oxygen Concentration - - Weight 130.2 kg (287 lb) 03/22/2024 7:06 PM EDT Height 182.9 cm (6') 03/22/2024 7:06 PM EDT Body Mass Index 38.92 03/22/2024 7:06 PM EDT Plan of Treatment Health Maintenance Due Date Last Done Comments Depression Screening 1972 DTaP,Tdap and Td Vaccines (1 - Tdap) 10/07/2000 10/06/2000 Zoster (Shingles) Vaccine (1 of 2) 2010 COVID-19 Vaccine (2 - 2023-2 5 season) 2024 12/09/2020 Adult BMI Screening 03/22/2025 03/22/2024 Tobacco Screening 03/22/2025 03/22/2024 Influenza Vaccine 06/06/2025 07/19/2021, , 08/01/2019, Additional history exists Medical Devices Implanted Type Area Patent Prosecution Attorney Device Identifier Shelf Expiration Date Model / Serial / Lot Nicholas Iol 0d +18d [facility] - [id number] - [id number] Implanted:Qty: 1 on 07/20/2019 by Nikki Ibarra MD at [facility] Lens [employer] 05/05/2023 [id number] 18.0 / [id number] / Nicholas Iol 0d +18d Mod [facility] 97788 - [id number] - [id number] Implanted:Qty: 1 on 08/17/2019 by Nikki Ibarra MD at [facility] Lens Right: Eye [employer] 05/05/2024 SN60WF 18.0 / [id number] / Insurance [place]ICAID [place] [employer] MEDICARE [place] [employer] MEDICARE Advance Directives * Full Code (Latest Code Status on File) Date Activated Date Inactivated Comments 06/12/2018 2:07 AM 06/16/2018 6:47 PM Care Teams Chuck Wagon Cook Relationship Specialty Start Date End Date Say Amato MD PCP - General 06/15/18
--- OUTSIDE RECORDS SUMMARY | 2025-06-09 10:32 | XMS_ITS | Encounter Summary ---
Author Organization [facility] Address [facility] [place] [address] Care Team Providers Care Psychometrist Name Role Phone Say Amato MD Primary Care Provider [phone] Saúl Lunsford MD Unavailable [phone] Source Comments In the event this information is protected by the Federal Confidentiality of Alcohol and Drug AbusePatient Records regulations: The Federal rules restrict any use of the information to criminally investigate or prosecute any alcohol or drug abuse patient.[facility] Encounter Details Date Type Department Care Team (Late st Contact Info) Description 06/30/2019 [facility] M[facility] [address] [place] [address] Glenn Blair MD [address] [place] [address] Social History Tobacco Use Types Packs/Day Years [...] on filedocumented in this encounter Care Teams Psychometrist Relationship Specialty Start Date End Date Say Amato MD PCP - General Family Medicine 07/15/16 Saúl Lunsford MD Cardiology 01/21/22 documented as of this encounter
--- OUTSIDE RECORDS SUMMARY | 2025-06-09 10:32 | XMS_ITS | Encounter Summary ---
Author Organization [facility] Address [address] [place] [address] Care Team Providers Care Pallet Stone Inserter Name Role Phone Martine Kovacs MD Primary Care Provider Say Amato MD Primary Care Provider [phone] Saúl Lunsford MD Unavailable [phone] Source Comments In the event this information is protected by the Federal Confidentiality of Alcohol and Drug AbusePatient Records regulations: The Federal rules restrict any use of the information to criminally investigate or prosecute any alcohol or drug abuse patient.[facility] Encounter Details Date Type Department Care Team (Late st Contact Info) Description 08/12/2013 Patient Msg Medical Records [address] [place] [address] Provider, [facility] Medical Procedure Social History Tobacco Use Types Packs/Day Years [...] on filedocumented in this encounter Care Teams Pallet Stone Inserter Relationship Specialty Start Date End Date Martine Kovacs MD [address] [place] [address] PCP - General 11/15/08 07/14/16 Say Amato MD [address] [place] [address] PCP - General Family Medicine 07/15/16 Saúl Lunsford MD [address] [place] [address] Cardiology 01/21/22 documented as of this encounter
--- OUTSIDE RECORDS SUMMARY | 2025-06-09 10:32 | XMS_ITS | Encounter Summary ---
Author Organization [facility] Address [address] [place] [address] Care Team Providers Care Blue Line Trimmer Name Role Phone Say Amato MD Primary Care Provider [phone] Saúl Lunsford MD Unavailable [phone] Source Comments In the event this information is protected by the Federal Confidentiality of Alcohol and Drug AbusePatient Records regulations: The Federal rules restrict any use of the information to criminally investigate or prosecute any alcohol or drug abuse patient.[facility] Encounter Details Date Type Department Care Team (Latest Contact Info) Description 08/03/2018 H&P External-Non[facility] Provider, External, [facility] Do not enter address information under generic External Provider. Social History Tobacco Use Types Packs/Day Years [...] AM EDT Delilah Washington (Rn)(Hist), RN * Do you have serious difficulty walking or climbing stairs? Answer Date of Assessment Author Yes 05/13/2014 9:49 AM EDT Delilah Washington (Rn)(Hist), RN * Do you have difficulty dressing or bathing? Answer Date of Assessment Author No 05/13/2014 9:49 AM AUNDREAT Delilah Washington (Rn)(Hist), RN * Because of a physical, mental, or emotional condition, do you have difficulty doing errands alone such as visiting a doctor's office or shopping? Answer Date of Assessment Author Yes 05/13/2014 9:49 AM EDT Delilah Washington (Rn)(Hist), RN documented as of this encounter Mental Status * Because of a physical, mental, or emotional condition, do you have serious difficulty concentrating, remembering, or making decisions? Answer Entry Date Author Yes 05/13/2014 9:49 AM AUNDREAT Delilah Washington (Rn)(Hist), RN documented in this encounter Plan of Treatment Not on file documented as of this encounter Visit Diagnoses Not on filedocumented in this encounter Care Teams Blue Line Trimmer Relationship Specialty Start Date End Date Say Amato MD PCP - General Family Medicine 07/15/16 Saúl Lunsford MD Cardiology 01/21/22 documented as of this encounter
--- OUTSIDE RECORDS SUMMARY | 2025-06-09 10:32 | XMS_ITS | Encounter Summary ---
Author Organization [facility] Address [address] [place] [address] Care Team Providers Care Bank Operations Officer Name Role Phone Say Amato MD Primary Care Provider [phone] Saúl Lunsford MD Unavailable [phone] Source Comments In the event this information is protected by the Federal Confidentiality of Alcohol and Drug AbusePatient Records regulations: The Federal rules restrict any use of the information to criminally investigate or prosecute any alcohol or drug abuse patient.[facility] Encounter Details Date Type Department Care Team (Late st Contact Info) Description 12/20/2019 Patient Msg Medical Records [address] [place] [address] Provider, [facility] RE: Patient Registration Completed Social History Tobacco Use Types Packs/Day Years Used Date Smoking Tobacco: Never Cigarettes Smokeless Tobacco: Former Chew Quit: 09/17/2015 Alcohol Use Standard Drinks/Week Comments No 0 (1 standard drink = 0.6 oz pur e alcohol) PHQ-2 Answer Date Recorded PHQ-2 Score 0 11/02/2019 Sex and Gender Information Value Date Recorded [...] on filedocumented in this encounter Care Teams Bank Operations Officer Relationship Specialty Start Date End Date Say Amato MD PCP - General Family Medicine 07/15/16 Saúl Lunsford MD Cardiology 01/21/22 documented as of this encounter
--- OUTSIDE RECORDS SUMMARY | 2025-06-09 10:32 | XMS_ITS | Encounter Summary ---
Author Organization [facility] Address [address] [place] [address] Care Team Providers Care Centrifuge Operator Name Role Phone Martine Kovacs MD Primary Care Provider [phone] Say Amato MD Primary Care Provider [phone] Saúl Lunsford MD Unavailable [phone] Source Comments In the event this information is protected by the Federal Confidentiality of Alcohol and Drug AbusePatient Records regulations: The Federal rules restrict any use of the information to criminally investigate or prosecute any alcohol or drug abuse patient.[facility] Encounter Details Date Type Department Care Team (Late st Contact Info) Description 10/22/2013 Patient Msg Medical Records [address] [place] [address] Provider, [facility] RE: Patient Registration Completed Social [...] on filedocumented in this encounter Care Teams Centrifuge Operator Relationship Specialty Start Date End Date Martine Kovacs MD [address] [place] [address] PCP - General 11/15/08 07/14/16 Say Amato MD [address] [place] [address] PCP - General Family Medicine 07/15/16 Saúl Lunsford MD [address] [place] [address] Cardiology 01/21/22 documented as of this encounter
--- OUTSIDE RECORDS SUMMARY | 2025-06-09 10:32 | XMS_ITS | Encounter Summary ---
Author Organization [facility] Address [address] [place] [address] Care Team Providers Care Radiation Engineer Name Role Phone Say Amato MD Primary Care Provider [phone] Saúl Lunsford MD Unavailable [phone] Source Comments In the event this information is protected by the Federal Confidentiality of Alcohol and Drug AbusePatient Records regulations: The Federal rules restrict any use of the information to criminally investigate or prosecute any alcohol or drug abuse patient.[facility] Encounter Details Date Type Department Care Team (Late st Contact Info) Description 11/23/2019 Patient Msg Neurological Gnosticism [address] [place] [address] Paul Maguire PA-C [address] [place] [address] [facility] Social History Tobacco Use Types Packs/Day Years [...] on filedocumented in this encounter Care Teams Radiation Engineer Relationship Specialty Start Date End Date Say Amato MD PCP - General Family Medicine 07/15/16 Saúl Lunsford MD Cardiology 01/21/22 documented as of this encounter
--- OUTSIDE RECORDS SUMMARY | 2025-06-09 10:32 | XMS_ITS | Clinical Summary ---
Author Organization [facility] Address [address] [place] [address] Care Team Providers Care C Iron Worker Name Role Phone Say Amato MD Primary Care Provider [phone] Saúl Lunsford MD Unavailable [phone] Allergies Active Allergy Reactions Criticality Noted Date Comments Beta-Blockers (Beta-Adrenergic Blocking Agts) Headache,Itching,Oth er 07/24/2011 Diazepam Unknown 03/03/2008 Was on the ground after took it Was on the ground after took it Other reaction(s): Allergy: ANAPHYLAXIS; Gabapentin Other,Unknown 11/25/2008 Unknown Unknown Hydralazine Unknown 05/19/2013 Headache, nausea, sick Headache, nausea, sick Medications atorvastatin (Lipitor) 40 mg tablet Take 40 mg by mouth at bedtime. Active cholecalciferol, vitamin D3, 50 mcg (2,000 unit) capsule Take 2,000 Units by mouth in the morning. Active furosemide (Lasix) 40 mg tablet Take 40 mg by mouth in the morning and at bedtime. Active linaCLOtide (Linzess) 72 mcg capsule Take 72 mcg by mouth if needed each day. Active metFORMIN (Glucophage) 500 mg tablet Take 500 mg by mouth with breakfast and with evening meal. Active oxybutynin XL (Ditropan-XL) 10 mg 24 hr tablet Take 10 mg by mouth in the morning. Active pantoprazole (ProtoNix) 40 mg EC tablet Take 40 mg by mouth before breakfast. Active potassium chloride CR (K-Tab) 20 mEq ER tablet Take 20 mEq by mouth in the morning. Active topiramate 50 mg tablet Take 200 mg by mouth in the morning and at bedtime. Active allopurinol (Zyloprim) 100 mg tablet Take 100 mg by mouth 1 (one) time each day at the same time. Active insulin degludec (Tresiba FlexTouch) 100 unit/mL (3 mL) injection every 12 (twelve) hours. Active cetirizine (ZyrTEC) 10 mg tablet Take 10 mg by mouth in the morning and at bedtime. Active tiotropium (Spiriva) [address] 1 capsule into inhaler and inhale in the morning. Active NIFEdipine XL (Procardia XL) 90 mg 24 hr tabletIndication s:Benign hypertensive heart disease with heart failure (CMS/HCC) Take 1 tablet (90 mg) by mouth in the morning. 90 tablet 3 05/16/20 23 Active candesartan (Atacand) 8 mg tabletIndication s:Systolic congestive heart failure, unspecified HF chronicity (CMS/HCC) Take 1 tablet (8 mg) by mouth in the morning. 30 tablet 11 05/21/20 23 Active baclofen (Lioresal) 10 mg tablet TAKE 1/2-1 TABLET BY MOUTH THREE TIMES DAILY 04/01/20 23 Active colchicine, gout, 0.6 mg tablet Take 1 tablet by mouth in the morning. 02/29/20 15 Active Jardiance 10 mg Take 25 mg by mouth 1 (one) time each day. 03/05/20 23 Active escitalopram (Lexapro) 20 mg tablet Take 0.5 tablets by mouth in the morning. 02/29/20 15 Active indomethacin (Indocin) 50 mg capsule TAKE 1 CAPSULE BY MOUTH THREE TIMES A DAY NEEDED FOR PAIN WITH FOOD OR MILK 05/12/20 23 Active montelukast (Singulair) 10 mg tablet Take 1 tablet by mouth in the morning. Active dexAMETHasone (Decadron) 2 mg tablet TAKE 1 TABLET BY MOUTH TWICE A DAY WITH FOOD FOR 10 DAYS 01/22/20 24 Active metoprolol tartrate (Lopressor) 50 mg tablet TAKE 1 TABLET BY MOUTH TWICE A DAY WITH FOOD FOR 30 DAYS 01/21/20 24 Active rivastigmine (Exelon) 3 mg capsule every 12 (twelve) hours. 01/13/20 24 Active apixaban (Eliquis) 5 mg tablet Take 5 mg by mouth in the morning and at bedtime. 02/12/20 24 Active amitriptyline (Elavil) 25 mg tablet TAKE 2 TABLETS BY MOUTH ONCE DAILY AT BEDTIME FOR 30 DAYS 02/16/20 24 Active thiamine (Vitamin B-1) 100 mg tablet Take 100 mg by mouth in the morning. Active lactulose 10 gram/15 mL solution TAKE 30 ML BY MOUTH TWICE DAILY FOR 30 DAYS 10/30/19 25 Active oxyCODONE (Roxicodone) 10 mg immediate release tablet every 8 (eight) hours. 11/17/19 25 Active cloNIDine (Catapres) 0.1 mg tabletIndication s:Benign hypertensive heart disease with heart failure (CMS/HCC) Take 1 tablet by mouth twice daily 180 tablet 1 06/01/20 25 Active NIFEdipine XL (Procardia XL) 60 mg 24 hr tabletIndication s:Benign hypertensive heart disease with heart failure (CMS/HCC) Take 1 tablet (60 mg) by mouth in the morning. 30 tablet 1 06/01/20 25 026 Active cloNIDine (Catapres) 0.1 mg tabletIndication s:Benign hypertensive heart disease with heart failure (CMS/HCC) Take 1 tablet (0.1 mg) by mouth two times daily. 180 tablet 3 07/29/20 24 025 Discontinued NIFEdipine CC (Adalat CC) 60 mg 24 hr tabletIndication s:Benign hypertensive heart disease with heart failure (CMS/HCC) Take 1 tablet (60 mg) by mouth once daily as directed. Do not crush, chew, or split. 90 tablet 3 07/29/20 24 025 Discontinued Active Problems Problem Noted Date Diagnosed Date Essential tremor 11/29/2024 Acute on chronic diastolic heart failure 024 Other chest pain 07/26/2024 Fall 03/09/2024 Depression 01/29/2024 01/29/2024 Diabetic mononeuropathy asso ciated with diabetes mellitus due to underlying condition 01/29/2024 01/29/2024 Encounter for chronic pain management 01/29/2024 01/29/2024 Irritable bowel syndrome 01/29/2024 024 Renal disease 01/29/2024 01/29/2024 Stroke risk 01/29/2024 01/29/2024 Abdominal pain 01/22/2024 01/29/2024 Choledocholithiasis 01/22/2024 01/29/2024 Cholelithiases 01/22/2024 01/29/2024 Chronic anticoagulation 01/22/2024 01/29/20 CIDP (chronic inflammatory demyelinating polyneu ropathy) 01/22/2024 01/29/2024 Equinus contracture of right ankle 01/22/2024 01/29/2024 History of hematemesis 01/22/2024 DJD (degenerative joint disease) 01/22/2024 01/29/2024 Type 2 diabetes mellitus with hyperglycemia 01/0401/29/2024 Diabetes mellitus 01/22/2024 History of stroke 01/07/2024 01/29/2024 Memory loss 01/07/2024 01/29/2024 Acute encephalopathy 12/02/2023 01/29/2024 Altered awareness, transient 12/01/2023 Staring episodes 12/01/2023 01/29/2024 Multiple falls 11/30/2023 01/29/2024 Altered mental status 11/28/2023 01/29/2024 Cellulitis 08/19/2023 08/19/2023 Anxiety state 07/17/2023 07/17/2023 Cocaine dependence in remission 07/17/2023 07/17/2023 Disorder of refraction and accommodation 023 07/17/2023 Gout 07/17/2023 07/17/2023 Overview (07/17/2023): February 28, 2015 Entered By: HARMEET LITTLE Comment: Rt foot History of tracheostomy 07/17/2023 07/17/20 23 Overview (07/17/2023): February 28, 2015 Entered By: HARMEET LITTLE Comment: Has stoma, trach removed 09/2013 Hypersomnia with sleep apnea 07/17/202309/2023 Major depressive disorder, recurrent, moderate 1 07/17/2023 Morbid obesity 07/17/2023 07/17/2023 Nondependent cannabis abuse in remission 023 07/17/2023 Presbyopia 07/17/2023 07/17/2023 Chronic heart failure with preserved ejection fr action 02/20/2023 Cerebrovascular accident (CV A) due to embolism of cerebral artery 01/06/2023 Syncope and collapse 07/05/2022 Overview (07/05/2022): Added automatically from request for surgery [id number] Acute, but ill-defined, cerebrovascular disease 06/28/2022 Overview (06/28/2022): Last Assessment & Plan: CVA in , 2003, 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 Denies recent CVA or TIA, not currently on ASA. Asthma 06/28/2022 Neuropathy 06/28/2022 Congenital heart disease 06/28/2022 Esophageal reflux 06/28/2022 Overview (06/28/2022): Last Assessment & Plan: Stable, on rx. Hyperlipidemia 06/28/2022 BMI 45.0-49.9, adult 06/28/2022 Other diseases of pharynx, not elsewhere classif ied(478.29) 06/28/2022 SOB (shortness of breath) 06/28/2022 COPD (chronic obstructive pulmonary disease) Overview (06/28/2022): Last Assessment & Plan: Stable, on albuterol PRN, Singulair. States he has SOB with exertion in cold weather. Denies recent use of albuterol, cough or SOB. Lungs CTA on exam. Difficult intravenous access 01/21/2022 Overview (06/28/2022): Last Assessment & Plan: Has required US guidance in the past. Parkinson's disease 01/21/2022 Dyslipidemia 12/11/2021 CKD (chronic kidney disease) 09/04/2020 Overview (06/28/2022): Last Assessment & Plan: Creatinine 1.71, eGFR 41 on 11/28/21. BMP pending. Diastolic dysfunction 09/04/2020 Leg edema 09/04/2020 Essential hypertension 09/04/2020 Overview (06/28/2022): Last Assessment & Plan: Stable, on rx. BP 134/84 in office today. Obstructive sleep apnea syndrome 09/04/2020 Overview (06/28/2022): Last Assessment & Plan: S/p uvulectomy, does not wear CPAP. resolved after wt lost Overview: S/p Tracheotomy Type 2 diabetes mellitus without complication Recurrent major depression in partial remission 11/16/2019 Hypokalemia 12/22/2018 Elevated PSA 12/01/2018 Overview (06/28/2022): psa was 4.34. Was checked at time of uti which can falsely elevate this. In light of his significant comorbidities it is very unlikely this is significant Hematuria, gross 12/01/2018 Urge incontinence of urine 12/01/2018 Overview (06/28/2022): 12/01/18: Urge incontinence. Will eval further with hematuria workup 01/05/19: Rx for oxybutynin 5 mg bid provided Urinary tract infection without hematuria 2018 Overview (06/28/2022): 12/01/18: Proteus UTI November 18, 2018 with gross hematuria. 01/05/19: Negative CT and normal cysto. CHF (congestive heart failure) 11/06/2018 Overview (06/28/2022): ? Last Assessment & Plan: EF 55-60% on echocardiogram 07/09/2021. Right heart cath 10/16/2018 with mild to moderately elevated right atrial pressure in absence of pulmonary HTN. On Lasix. Euvolemic on exam, denies recent SOB. Follows with cardiology. Low back pain 11/06/2018 Volume overload 10/08/2018 Chronic deep vein thrombosis (DVT) of proximal vein of both lower extremities 08/06/2018 History of pulmonary embolus (PE) 08/06/2018 Overview (06/28/2022): Last Assessment & Plan: H/o PE/DVT in 2006, 2017. Prothrombin gene mutation. On warfarin, states his PCP is giving lovenox bridging instructions for surgery. Pulmonary embolus with infarction 08/06/2018 01/29/2024 Overview (01/29/2024): Last Assessment & Plan: H/o PE/DVT in 2006, 2017. Prothrombin gene mutation. On warfarin, states his PCP is giving lovenox bridging instructions for surgery. 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 Bilateral lower extremity edema 03/31/2014 01/29/2024 Acute renal failure (ARF) 03/15/20142023 Muscle cramps 03/15/2014 01/29/2024 Weakness 03/15/2014 01/29/2024 Bilateral primary osteoarthritis of knee 014 01/29/2024 Degeneration of intervertebral disc of lumbar re gion 01/25/2014 01/29/2024 Diabetic neuropathy 01/25/2014 01/29/2024 Lumbar facet arthropathy 01/25/2014 024 Lumbar radiculopathy 01/25/2014 01/29/[address] 08/22/2011 01/29/2024 Tremor 07/24/2011 Resolved Problems Problem Noted Date Diagnosed Date Resolved Date Tobacco use 01/21/2022 01/02/2023 Overview (06/28/2022): Last Assessment & Plan: Rare use of tobacco chew products. Encounters Date Type Department Care Team Description 06/01/2025 Refill [facility] at [place] [address] [place] [id number] Trev Crespo MD Benign hypertensive heart disease with heart failure ([facility]) 04/09/2025 Orders Only [facility] [address] [place] [address] Lemuel Spain MD 03/29/2025 9:55 PM EDT Ancillary Procedure [facility] [address] [place] [address] Awareness of heartbeats from Last 3 Months Immunizations Immunization Administration Dates Next Due Influenza Whole 07/18/2015 Influenza, High Dose Seasona l, Preservative Free 07/06/2015 Influenza, Unspecified 08/01/2019,2016,08/05/2016,08/06,10/06/2002 Influenza, injectable, MDCK, preservative free, quadrivalent 07/19/2021,07/07/2020,07/24/2018 Influenza, injectable, quadr ivalent, preservative free 08/10/2018,09/13/2014 Influenza, seasonal, injectable 06/17/2012 Influenza, seasonal, injecta ble, preservative free, 6 moonths & older 06/25/2013 Pneumococcal Conjugate PCV 13 11/13/2015 Pneumococcal Polysaccharide PPV23 08/11/2017,04/2010 Td (adult), unspecified 10/06/2000 Family History Medical History Relation Name Comments Coronary artery disease Father Coronary artery disease Mother Relation Name Status Comments Father Mother Social History Tobacco Use Types Packs/Day Years Used Date Smoking Tobacco: Never Smokeless Tobacco: Never Tobacco Cessation:Counseling Given: Not Answered Alcohol Use Standard Drinks/Week Comments Not Currently [...] Heterosexual or Straight 07/06 7:14 AM EDT Last Filed Vital Signs Vital Sign Reading Time Taken Comments Blood Pressure 143/83 11/29/2024 12:52 PM EST Pulse 62 11/29/2024 12:52 PM EST Temperature 36.6 C (97.8 F) 11/02/2024 2:08 PM EST Respiratory Rate 18 11/29/2024 12:5 2 PM EST Oxygen Saturation 97% 11/29/2024 12: 52 PM EST Inhaled Oxygen Concentration - - Weight 120 kg (265 lb) 11/29/2024 12:52 PM EST Patient states last weight was with coat on Height 175.3 cm (5' 9 ) 11/02/2024 2:08 PM EST Body Mass Index 39.13 11/02/2024 2:08 PM EST Plan of Treatment Health Maintenance Due Date Last Done Comments CT Colonography 1960 Colonoscopy 1960 Colorectal Cancer Screening 1960 Diabetes: Hemoglobin A1C 1960 FIT-DNA 1960 FIT 1960 FOBT 1960 Medicare Annual Wellness (AWV) 1960 Medicare Initial Physical (IPPE) 1960 Sigmoidoscopy 1960 Diabetes: Retinopathy Screening 1970 Adult Tetanus 10/06/2010 10/06/2000, 10/06/2000 Zoster Vaccines (1 of 2) 2010 Diabetes: Urine Protein Screening 08/29/2016 08/29/2015 Pneumococcal Vaccine: Pediatrics (0 to 5 Years) and At-Risk Patients (6 to 64 Years) (3 of 3 - PCV20 or PCV21) 08/11/2022 08/11/2017, 11/13/2015, 09/11/2010 COVID-19 Vaccine (2 - season) 2025 12/09/2020, 12/09/2020 Influenza Vaccine (#1) 2025 , 07/07/2020, 08/01/2019, Additional history exists Depression Screening 11/29/2025 11/29/2024 HIB Vaccines Aged Out No longer eligi ble based on patient's age to complete this topic HPV Vaccines Aged Out No longer eligi ble based on patient's age to complete this topic IPV Vaccines Aged Out No longer eligi ble based on patient's age to complete this topic Meningococcal B Vaccine Aged Out No l onger eligible based on patient's age to complete this topic Meningococcal Vaccine Aged Out No rose raul eligible based on patient's age to complete this topic Rotavirus Vaccines Aged Out No longer eligible based on patient's age to complete this topic Medical Devices Implanted Type Area Paraeducator Device Identifier Shelf Expiration Date Model / Serial / Lot Percept Brainsense Implanted:Qty: 1 on 10/14/2024 by Richard Lloyd MD at [facility] Device Left: Chest [employer] 04/02/2025 [id number] / [id number] / Sensight Connector Plug Implanted:Qty: 1 on 10/14/2024 by Richard Lloyd MD at [facility] Device Left: Chest [employer] 09/15/2025 [id number] / / [id number] Pocket Adaptor For Deep Brain Stimulation Implanted:Qty: 1 on 10/14/2024 by Richard Lloyd MD at [facility] Device Left: Chest Medtronic 07/02/2027 [id number] / / [id number] Description:No Charge for Po cket Adaptor per Rep(Victor Hugo) Monitor,Steven Lentz,Luxdx - [id number] - [id number] Implanted:Qty: 1 on 01/09/2023 by Lemuel Spani MD at [facility] Implantable Loop Recorder [employer] 05/27/2024 [id number] / [id number] / Procedures Procedure Name Priority Date/Time Associated Diagnosis Comments CARDIAC DEVICE CHECK CHECK - REMOTE Routine 04/21/2025 6:05 PM EDT Awareness of heartbeats CARDIAC DEVICE CHECK - REMOTE - LOOP RECORDER (ILR) Routine 04/09/2025 12:00 AM EDT from Last 3 Months Results * CARDIAC DEVICE CHECK - REMOTE - LOOP RECORDER (ILR) (04/21/2025 6:05 PM EDT) us Magan Padilla MD CV IMPLANTABLE CARDIAC DEVICE CO OCEDURES Final Result CPACS * Cardiac device check - Remote loop recorder (ILR) (04/09/2025 12:00 AM EDT) Anatomical Region Laterality Modality Other 04/09/2025 us Lemuel Spain MD CV IMPLANTABLE CARDIAC DEVICE CO OCEDURES Final Result from Last 3 Months Additional Health Concerns Infection Onset Date Last Indicated MRSA 09/20/2024 09/20/2024 Insurance [employer] MEDICARE Care Teams C Iron Worker Relationship Specialty Start Date End Date Say Amato MD [address] [facility] [address] PCP - General 05/27/22 Saúl Lunsford MD [address] [place] [address] Consulting Physician Cardiology 09/20/24
--- OUTSIDE RECORDS SUMMARY | 2025-06-09 10:32 | XMS_ITS | Encounter Summary ---
Author Organization [facility] Address [id number] [address] [place] [address] Care Team Providers Care Book Shelver Name Role Phone Say Amato MD Primary Care Provider [phone] Reason for Visit * Reason Comments Med Refill Encounter Details Date Type Department Care Team (Late st Contact Info) Description 05/31/2023 Refill [facility] [address] [place] [phone] Raul Irwin MD [address] [place] [address] Social History Tobacco Use Types Packs/Day Years [...] on file Sexual Orientation Not on file documented as of this encounter Miscellaneous Notes * Telephone Encounter - Raul Irwin MD - 05/31/2023 7:57 AM EDT THIS IS NOT A MEDICATION THAT IS PRESCRIBED BY THE [facility]. documented in this encounter Plan of Treatment Not on file documented as of this encounter Visit Diagnoses Not on filedocumented in this encounter Care Teams Book Shelver Relationship Specialty Start Date End Date Say Amato MD PCP - General 06/15/18 documented as of this encounter
--- OUTSIDE RECORDS SUMMARY | 2025-06-09 10:32 | XMS_ITS | Encounter Summary ---
Author Organization [facility] Address [address] [place] [address] Care Team Providers Care Gas Specialist Name Role Phone Martine Kovacs MD Primary Care Provider [phone] Say Amato MD Primary Care Provider [phone] Saúl Lunsford MD Unavailable [phone] Source Comments In the event this information is protected by the Federal Confidentiality of Alcohol and Drug AbusePatient Records regulations: The Federal rules restrict any use of the information to criminally investigate or prosecute any alcohol or drug abuse patient.[facility] Encounter Details Date Type Department Care Team (Late st Contact Info) Description 08/10/2013 Patient Msg Medical Records [address] [place] [address] Provider, [facility] instructions Social History Tobacco Use Types [...] on filedocumented in this encounter Care Teams Gas Specialist Relationship Specialty Start Date End Date Martine Kovacs MD [address] [place] [address] PCP - General 11/15/08 07/14/16 Say Amato MD [address] [place] [address] PCP - General Family Medicine 07/15/16 Saúl Lunsford MD [address] [place] [address] Cardiology 01/21/22 documented as of this encounter
--- OUTSIDE RECORDS SUMMARY | 2025-06-09 10:32 | XMS_ITS | Encounter Summary ---
Author Organization [facility] Address [address] [place] [address] Care Team Providers Care Dental Associate Name Role Phone Say Amato MD Primary Care Provider [phone] Saúl Lunsford MD Unavailable [phone] Reason for Visit * Reason Comments Med Refill Encounter Details Date Type Department Care Team (Late st Contact Info) Description 02/21/2023 Refill [facility] Heart at [facility] [address] [place] [address] Caryn Hidalgo, ESTATE PLANNER [address] [place] [address] Social History Tobacco Use Types [...] suspected to have Coronavirus/COVID-19? No / Unsure 02/20/2023 9:27 AM EDT documented as of this encounter Plan of Treatment Not on file documented as of this encounter Visit Diagnoses Not on filedocumented in this encounter Additional Health Concerns Infection Onset Date Last Indicated Resolved Time MRSA 09/20/2024 09/20/2024 documented as of this encounter Care Teams Dental Associate Relationship Specialty Start Date End Date Say Amato MD [address] [facility] [address] [address] PCP - General 05/27/22 Saúl Lunsford MD [address] [place] [address] Consulting Physician Cardiology 09/20/24 documented as of this encounter
--- OUTSIDE RECORDS SUMMARY | 2025-06-09 10:32 | XMS_ITS | Encounter Summary ---
Author Organization [facility] Address [address] [place] [address] Care Team Providers Care Face Painter Name Role Phone aSy Amato MD Primary Care Provider [phone] Saúl Lunsford MD Unavailable [phone] Reason for Visit * Reason Comments Med Refill Encounter Details Date Type Department Care Team (Late st Contact Info) Description 06/01/2025 [facility] [address] [place] [address] Trev Crespo MD [address] [place] [address] Benign hypertensive heart disease with heart failure (CMS/[facility]) Social History Tobacco Use Types Packs/Day Years [...] documented as of this encounter Care Teams Face Painter Relationship Specialty Start Date End Date Say Amato MD [address] [facility] [place] [address] PCP - General 05/27/22 Súal Lunsford MD [address] [place] [address] Consulting Physician Cardiology 09/20/24 documented as of this encounter
--- OUTSIDE RECORDS SUMMARY | 2025-06-09 10:32 | XMS_ITS | Encounter Summary ---
Author Organization [facility] Address [address] [place] [address] Care Team Providers Care Hydrator Operator Name Role Phone Martine Kovacs MD Primary Care Provider [phone] Say Amato MD Primary Care Provider [phone] Saúl Lunsford MD Unavailable [phone] Source Comments In the event this information is protected by the Federal Confidentiality of Alcohol and Drug AbusePatient Records regulations: The Federal rules restrict any use of the information to criminally investigate or prosecute any alcohol or drug abuse patient.[facility] Encounter Details Date Type Department Care Team (Late st Contact Info) Description 11/15/2008 Patient Msg Medical Records [address] [place] [address] Provider, [facility] Patient Registration Social History Tobacco Use Types Packs/Day Years [...] on filedocumented in this encounter Care Teams Hydrator Operator Relationship Specialty Start Date End Date Martine Kovacs MD [address] [place] [address] PCP - General 11/15/08 07/14/16 Say Amato MD [address] [place] [address] PCP - General Family Medicine 07/15/16 Saúl Lunsford MD [address] [place] [address] Cardiology 01/21/22 documented as of this encounter
--- OUTSIDE RECORDS SUMMARY | 2025-06-09 10:32 | XMS_ITS | Encounter Summary ---
Author Organization [facility] Address [id number] [address] [place] [address] Care Team Providers Care Teletype Operator Name Role Phone Say Amato MD Primary Care Provider [phone] Reason for Visit * Reason Comments Med Refill Encounter Details Date Type Department Care Team (Late st Contact Info) Description 11/23/2023 Refill [facility]/Trauma and Adult Reconstruction [address] [facility] [address] [address] [place] [phone] Raul Irwin MD [address] [place] [address] Social History Tobacco Use Types [...] Telephone Encounter - Raul Irwin MD - 11/23/2023 10:13 AM EST Warfarin should be reordered by his medical doctors. documented in this encounter Plan of Treatment Not on file documented as of this encounter Visit Diagnoses Not on filedocumented in this encounter Care Teams Teletype Operator Relationship Specialty Start Date End Date Say Amato MD PCP - General 06/15/18 documented as of this encounter
--- OUTSIDE RECORDS SUMMARY | 2025-06-09 10:32 | XMS_ITS | Encounter Summary ---
Author Organization [facility] Address [address] [place] [address] Care Team Providers Care Manager Of Business Name Role Phone Say Amato MD Primary Care Provider [phone] Reason for Visit * Reason Comments Med Refill Encounter Details Date Type Department Care Team (Late st Contact Info) Description 06/01/2025 Refill [facility] [address] [facility] [address] [place] [phone] Ju Bautista, LIFE SCIENCE TEACHER [address] [id number] Intention tremor Social History Tobacco Use Types [...] tremor documented in this encounter Care Teams Manager Of Business Relationship Specialty Start Date End Date Say Amato MD PCP - General Family Medicine 03/24/24 documented as of this encounter
--- OUTSIDE RECORDS SUMMARY | 2025-06-09 10:32 | XMS_ITS | Encounter Summary ---
Author Organization [facility] Address [address] [place] [address] Care Team Providers Care Rotary Drill Rig Operator Name Role Phone Say Amato MD Primary Care Provider [phone] Saúl Lunsford MD Unavailable [phone] Reason for Visit * Reason Comments Med Refill Encounter Details Date Type Department Care Team (Late st Contact Info) Description 03/09/2023 Refill [facility] [address] [place] [address] Caryn Hidalgo, TRANSFUSION AIDE [address] [place] [address] Social History Tobacco Use Types [...] documented as of this encounter Care Teams Rotary Drill Rig Operator Relationship Specialty Start Date End Date Say Amato MD [address] [facility] [address] [address] PCP - General 05/27/22 Saúl Lunsford MD [address] [place] [address] Consulting Physician Cardiology 09/20/24 documented as of this encounter
--- OUTSIDE RECORDS SUMMARY | 2025-06-09 10:32 | XMS_ITS | Encounter Summary ---
Author Organization [facility] Address [address] [place] [address] Care Team Providers Care Document Design Specialist Name Role Phone Say Amato MD Primary Care Provider [phone] Saúl Lunsford MD Unavailable [phone] Source Comments In the event this information is protected by the Federal Confidentiality of Alcohol and Drug AbusePatient Records regulations: The Federal rules restrict any use of the information to criminally investigate or prosecute any alcohol or drug abuse patient.[facility] Encounter Details Date Type Department Care Team (Late st Contact Info) Description 06/07/2021 Patient Msg Cancer Appts [address] [place] [address] Provider, Ccf Appointment Reminder Social History Tobacco Use Types Packs/Day Years Used Date Smoking Tobacco: Never Cigarettes Smokeless Tobacco: Former Chew Quit: 09/17/2015 Comments:30 years Alcohol Use Standard Drinks/Week Comments No 0 (1 standard drink = 0.6 oz pur e alcohol) AUDIT-C Answer Date Recorded Q1: How often do you have a drink containing alc ohol? Never 01/04/2020 Average Number of Drinks Not on file 020 Frequency of Binge Drinking Not on file 12/06 PHQ-2 Answer Date Recorded PHQ-2 score 2 12/30/2019 Area Deprivation Index Answer Date Benigno rded National Score (1-100), lower number is lower ri sk Not on file 09/10/2020 State Score (1-10), lower number is lower risk N ot on file 09/10/2020 Data from: https://www.neighborhoodatlas.medicine.[facility]/. Last address used for calculation Not on file 09/10/2020 Sex and Gender Information Value Date Recorded Sex Assigned at Male 01/03/2020 10:39 PM EDT Legal Sex Male 8:13 AM EST Gender Identity Male 01/03/2020 10:39 PM EDT Sexual Orientation Straight 01/03/2020 10 :39 PM EDT COVID-19 Exposure Response Date Recorded In the last month, have you been in contact with someone who was confirmed or suspected to have Coronavirus / COVID-19? No / Unsure 06/07/2021 9:04 AM EDT documented as of this encounter Functional [...] on filedocumented in this encounter Care Teams Document Design Specialist Relationship Specialty Start Date End Date Say Amato MD PCP - General Family Medicine 07/15/16 Saúl Lunsford MD Cardiology 01/21/22 documented as of this encounter
--- OUTSIDE RECORDS SUMMARY | 2025-06-09 10:32 | XMS_ITS | Encounter Summary ---
Author Organization [facility] Address [address] [place] [address] Care Team Providers Care Vice President Business & Corporate Development Name Role Phone Martine Kovacs MD Primary Care Provider [phone] Say Amato MD Primary Care Provider [phone] Saúl Lunsford MD Unavailable [phone] Source Comments In the event this information is protected by the Federal Confidentiality of Alcohol and Drug AbusePatient Records regulations: The Federal rules restrict any use of the information to criminally investigate or prosecute any alcohol or drug abuse patient.[facility] Encounter Details Date Type Department Care Team (Late st Contact Info) Description 10/14/2013 Patient Msg Medical Records [address] [place] [address] Provider, Ccf Patient Registration Completed Social History Tobacco Use [...] on filedocumented in this encounter Care Teams Vice President Business & Corporate Development Relationship Specialty Start Date End Date Martine Kovacs MD [address] [place] [address] PCP - General 11/15/08 07/14/16 Say Amato MD [address] [place] [address] PCP - General Family Medicine 07/15/16 Saúl Lunsford MD [address] [place] [address] Cardiology 01/21/22 documented as of this encounter
--- OUTSIDE RECORDS SUMMARY | 2025-06-09 10:32 | XMS_ITS | Encounter Summary ---
Author Organization [facility] Address [address] [place] [address] Care Team Providers Care Binder Technician Name Role Phone Martine Kovacs MD Primary Care Provider [phone] Say Amato MD Primary Care Provider [phone] Saúl Lunsford MD Unavailable [phone] Source Comments In the event this information is protected by the Federal Confidentiality of Alcohol and Drug AbusePatient Records regulations: The Federal rules restrict any use of the information to criminally investigate or prosecute any alcohol or drug abuse patient.[facility] Encounter Details Date Type Department Care Team (Late st Contact Info) Description 10/29/2013 Patient Msg Medical Records [address] [place] [address] Provider, Ccf Appointment Cancellation Request Social History [...] on filedocumented in this encounter Care Teams Binder Technician Relationship Specialty Start Date End Date Martine Kovacs MD [address] [place] [address] PCP - General 11/15/08 07/14/16 Say Amato MD [address] [place] [address] PCP - General Family Medicine 07/15/16 Saúl Lunsford MD [address] [place] [address] Cardiology 01/21/22 documented as of this encounter
--- OUTSIDE RECORDS SUMMARY | 2025-06-09 10:32 | XMS_ITS | Encounter Summary ---
Author Organization [facility] Address [id number] [address] [place] [address] Care Team Providers Care Spanish Speaking Babysitter Name Role Phone Say Amato MD Primary Care Provider [phone] Encounter Details Date Type Department Care Team (Late st Contact Info) Description 10/10/2023 Orders Only [facility] [address] [place] [phone] Transcribe, Orders Support User Pain (Primary Dx) Social History Tobacco Use Types Packs/Day Years [...] on file documented as of this encounter Results * Non [facility] Echo (10/08/2023 3:10 PM EST) us Scanning Provider External CV ECHO ORDERABLES Fi nal Result XCELERA * CT angiogram head (10/08/2023 11:25 AM EST) us Scanning Provider External IMG CT ORDERABLES Fin al Result * CT angiogram carotid (10/08/2023 11:20 AM EST) us Scanning Provider External IMG CT ORDERABLES Fin al Result * CT brain without contrast (10/08/2023 11:15 AM EST) us Scanning Provider External IMG CT ORDERABLES Fin al Result * X-ray chest 1 view (10/08/2023 11:05 AM EST) us Scanning Provider External IMG DIAGNOSTIC IMAGIN G ORDERABLES Final Result documented in this encounter Visit Diagnoses Diagnosis Pain- Primary Generalized pain documented in this encounter Care Teams Spanish Speaking Babysitter Relationship Specialty Start Date End Date Say Amato MD PCP - General 06/15/18 documented as of this encounter
--- OUTSIDE RECORDS SUMMARY | 2025-06-09 10:32 | XMS_ITS | Clinical Summary ---
Author Organization [facility] Address [address] [place] [address] Care Team Providers Care Data Capture Clerk Name Role Phone Say Amato MD Primary Care Provider [phone] Allergies Active Allergy Reactions Criticality Noted Date Comments Beta Adrenergic Blockers 01/06/2024 Other Reaction(s): headaches, nausea Diazepam Other,Unknown 03/03/2008 Was on the ground after took it Gabapentin Other,Unknown 11/25/2008 Hydralazine 05/19/2013 Headache, nausea, sick Medications Incruse Ellipta 62.5 MCG/ACT aerosol powder 11/05/19 24 Active potassium chloride CR (K-Tab) 20 MEQ ER tablet Take 20 mEq by mouth Daily Active pantoprazole (ProtoNix) 40 MG EC tablet Take 1 tablet by mouth Daily Active oxybutynin XL (Ditropan-XL) 10 MG 24 hr tablet Take 1 tablet by mouth Daily Active NIFEdipine XL (Procardia XL) 90 MG 24 hr tablet Take 1 tablet by mouth Daily 05/16/20 23 Active montelukast (Singulair) 10 MG tablet Take 10 mg by mouth at bedtime Active metoprolol tartrate (Lopressor) 50 MG tablet Take 50 mg by mouth 1 (one) time each day 12/25/19 24 Active metFORMIN (Glucophage) 500 MG tablet Take 1 tablet by mouth in the morning and 1 tablet before bedtime. 04/01/20 23 Active Linzess 145 MCG capsule Take 145 mcg by mouth in the morning. Take before meals. Active Tresiba FlexTouch 100 UNIT/ML injection Inject 60 Units under the skin 11/05/19 24 Active indomethacin (Indocin) 50 MG capsule Take 50 mg by mouth in the morning and 50 mg in the evening. Take with meals. Active furosemide (Lasix) 40 MG tablet Take 1 tablet by mouth in the morning and 1 tablet before bedtime. Active Jardiance 25 MG Take 25 mg by mouth Daily 11/27/19 24 Active cetirizine (ZyrTEC) 10 MG tablet Take 1 tablet by mouth Daily 04/01/20 23 Active candesartan (Atacand) 8 MG tablet Take 8 mg by mouth Daily Active baclofen (Lioresal) 10 MG tablet Take 10 mg by mouth in the morning and 10 mg in the evening and 10 mg before bedtime. Active atorvastatin (Lipitor) 40 MG tablet Take 1 tablet by mouth Daily Active amitriptyline (Elavil) 25 MG tablet Take 25 mg by mouth at bedtime 12/31/19 24 Active Blood Glucose Monitoring Suppl (Accu-Chek Guide Me) w/Device kit USE DIRECTED DAILY 02/22/20 23 Active Eliquis 5 MG tablet Take 5 mg by mouth in the morning and 5 mg before bedtime. 02/12/20 24 Active cloNIDine (Catapres) 0.1 MG tablet Take 0.05 mg by mouth in the morning and 0.05 mg before bedtime. 01/12/20 24 Active Gamunex-C 40 GM/400ML solution 02/27/20 24 Active naloxone (Narcan) 4 mg/0.1 mL nasal spray PLEASE SEE ATTACHED FOR DETAILED DIRECTIONS 01/12/20 24 Active oxyCODONE (Roxicodone) 10 MG immediate release tablet TAKE 1 TO 2 TABLETS BY MOUTH EVERY 4 HOURS NEEDED FOR PAIN 02/26/20 24 Active ondansetron ODT (Zofran-ODT) 4 MG disintegrating tablet Take 4 mg by mouth every 8 (eight) hours if needed for nausea 03/23/20 24 Active dexAMETHasone (Decadron) 2 MG tabletIndications :CIDP (chronic inflammatory demyelinating polyneuropathy) ([facility]) Take 1 tablet (2 mg) by mouth in the morning and 1 tablet (2 mg) in the evening. Take with meals. Do all this for 10 days. 20 tablet 1 07/30/20 24 Active OXcarbazepine (Trileptal) 150 MG tabletIndications :CIDP (chronic inflammatory demyelinating polyneuropathy) ([facility]),Cerebrovasc ular 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 ([facility]) TAKE 1/2 (ONE-HALF) TABLET BY MOUTH THREE TIMES DAILY (MORNING, EVENING AND BEFORE BEDTIME) 45 tablet 10/26/19 25 Active topiramate (Topamax) 200 MG tabletIndications :Intention tremor TAKE 1 TABLET BY MOUTH TWICE DAILY IN THE MORNING AND AT BEDTIME 180 tablet 3 06/01/20 25 Active topiramate (Topamax) 200 MG tabletIndications :Intention tremor TAKE 1 TABLET BY MOUTH TWICE DAILY (MORNING AND BEDTIME) 180 tablet 3 06/01/20 25 Active topiramate (Topamax) 200 MG tabletIndications :Intention tremor TAKE 1 TABLET BY MOUTH TWICE DAILY (MORNING AND BEDTIME) 180 tablet 04/28/20 25 2024 Discontinued Active Problems Problem Noted Date Diagnosed Date Bilateral foot-drop 08/03/2024 Acute on chronic diastolic heart failure 024 Cervical paraspinal muscle spasm 03/24/2024 Fall 03/09/2024 Numbness 03/09/2024 Depression 01/29/2024 Diabetic mononeuropathy asso ciated with diabetes mellitus due to underlying condition 01/29/2024 Encounter for chronic pain management 01/29/2024 Irritable bowel syndrome 01/29/2024 Renal disease 01/29/2024 Stroke risk 01/29/2024 CIDP (chronic inflammatory demyelinating polyneu ropathy) 01/22/2024 Abdominal pain 01/22/2024 Choledocholithiasis 01/22/2024 Cholelithiases 01/22/2024 Chronic anticoagulation 01/22/2024 Stage 3 chronic kidney disease 01/22/2024 Diabetes mellitus 01/22/2024 DJD (degenerative joint disease) 01/22/2024 Equinus contracture of right ankle 01/22/2024 History of hematemesis 01/22/2024 Type 2 diabetes mellitus with hyperglycemia 01/04 Intention tremor 01/07/2024 Degenerative disc disease, lumbar 01/07/2024 Weakness 01/07/2024 Memory loss 01/07/2024 History of head injury 01/07/2024 Acute encephalopathy 12/02/2023 Altered awareness, transient 12/01/2023 Staring episodes 12/01/2023 Multiple falls 11/30/2023 Altered mental status 11/28/2023 Cellulitis 08/19/2023 Anxiety state 07/17/2023 Cocaine dependence in remission 07/17/2023 Disorder of refraction and accommodation 023 Gout 07/17/2023 Overview (01/22/2024): February 28, 2015 Entered By: HARMEET LITTLE Comment: Rt foot History of tracheostomy 07/17/2023 Overview (01/22/2024): February 28, 2015 Entered By: HARMEET LITTLE Comment: Has stoma, trach removed 09/2013 Hypersomnia with sleep apnea 07/17/2023 Major depressive disorder, recurrent, moderate 1 Nondependent cannabis abuse in remission 023 Presbyopia 07/17/2023 Chronic heart failure with preserved ejection fr action 02/20/2023 Cerebrovascular accident (CV A) due to embolism of cerebral artery 01/06/2023 Syncope and collapse 07/05/2022 Overview (01/22/2024): Added automatically from request for surgery [id number] Acute, but ill-defined, cerebrovascular disease 06/28/2022 Overview (01/22/2024): Last Assessment & Plan: CVA in , 2003, 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 Denies recent CVA or TIA, not currently on ASA. Last Assessment & Plan: CVA in , 2003, 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 Denies recent CVA or TIA, not currently on ASA. Asthma 06/28/2022 Benign shuddering attacks 06/28/2022 BMI 45.0-49.9, adult 06/28/2022 Congenital heart disease ([facility]) 06/28/2022 Esophageal reflux 06/28/2022 Overview (01/22/2024): Last Assessment & Plan: Stable, on rx. Last Assessment & Plan: Stable, on rx. Hyperlipidemia 06/28/2022 SOB (shortness of breath) 06/28/2022 COPD (chronic obstructive pulmonary disease) Overview (01/22/2024): Last Assessment & Plan: Stable, on albuterol PRN, Singulair. States he has SOB with exertion in cold weather. Denies recent use of albuterol, cough or SOB. Lungs CTA on exam. Last Assessment & Plan: Stable, on albuterol PRN, Singulair. States he has SOB with exertion in cold weather. Denies recent use of albuterol, cough or SOB. Lungs CTA on exam. Difficult intravenous access 01/21/2022 Overview (01/22/2024): Last Assessment & Plan: Has required US guidance in the past. Last Assessment & Plan: Has required US guidance in the past. Parkinson's disease 01/21/2022 Tobacco use 01/21/2022 Overview (01/22/2024): Last Assessment & Plan: Rare use of tobacco chew products. Dyslipidemia 12/11/2021 CKD (chronic kidney disease) 09/04/2020 Overview (01/22/2024): Last Assessment & Plan: Creatinine 1.71, eGFR 41 on 11/28/21. BMP pending. Last Assessment & Plan: Creatinine 1.71, eGFR 41 on 11/28/21. BMP pending. Diastolic dysfunction 09/04/2020 Edema of lower extremity 09/04/2020 Essential hypertension 09/04/2020 Overview (01/22/2024): Last Assessment & Plan: Stable, on rx. BP 134/84 in office today. Last Assessment & Plan: Stable, on rx. BP 134/84 in office today. Morbid obesity 09/04/2020 Obstructive sleep apnea syndrome 09/04/2020 Overview (01/22/2024): Last Assessment & Plan: S/p uvulectomy, does not wear CPAP. resolved after wt lost Overview: S/p Tracheotomy resolved after wt lost Overview: S/p Tracheotomy Last Assessment & Plan: S/p uvulectomy, does not wear CPAP. Type 2 diabetes mellitus without complication Recurrent major depression in partial remission 11/16/2019 Hypokalemia 12/22/2018 Elevated PSA 12/01/2018 Overview (01/22/2024): psa was 4.34. Was checked at time of uti which can falsely elevate this. In light of his significant comorbidities it is very unlikely this is significant psa was 4.34. Was checked at time of uti which can falsely elevate this. In light of his significant comorbidities it is very unlikely this is significant Hematuria, gross 12/01/2018 Urinary tract infection without hematuria 2018 Overview (01/22/2024): 12/01/18: Proteus UTI November 18, 2018 with gross hematuria. 01/05/19: Negative CT and normal cysto. 12/01/18: Proteus UTI November 18, 2018 with gross hematuria. 01/05/19: Negative CT and normal cysto. Urge incontinence of urine 12/01/2018 Overview (01/22/2024): 12/01/18: Urge incontinence. Will eval further with hematuria workup 01/05/19: Rx for oxybutynin 5 mg bid provided 12/01/18: Urge incontinence. Will eval further with hematuria workup 01/05/19: Rx for oxybutynin 5 mg bid provided CHF (congestive heart failure) 11/06/2018 Overview (01/22/2024): ? Last Assessment & Plan: EF 55-60% on echocardiogram 07/09/2021. Right heart cath 10/16/2018 with mild to moderately elevated right atrial pressure in absence of pulmonary HTN. On Lasix. Euvolemic on exam, denies recent SOB. Follows with cardiology. ? Last Assessment & Plan: EF 55-60% on echocardiogram 07/09/2021. Right heart cath 10/16/2018 with mild to moderately elevated right atrial pressure in absence of pulmonary HTN. On Lasix. Euvolemic on exam, denies recent SOB. Follows with cardiology. Low back pain 11/06/2018 Obesity, Class III, BMI 40-49.9 (morbid obesity) 10/09/2018 Overview (01/22/2024): Last Assessment & Plan: Body mass index is 41.92 kg/m . Volume overload 10/08/2018 Chronic deep vein thrombosis (DVT) of proximal vein of both lower extremities 08/06/2018 History of pulmonary embolus (PE) 08/06/2018 Overview (01/22/2024): Last Assessment & Plan: H/o PE/DVT in 2006, 2017. Prothrombin gene mutation. On warfarin, states his PCP is giving lovenox bridging instructions for surgery. Pulmonary embolus with infarction 08/06/2018 Overview (01/22/2024): Last Assessment & Plan: H/o PE/DVT in 2006, 2017. Prothrombin gene mutation. On warfarin, states his PCP is giving lovenox bridging instructions for surgery. 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 Last Assessment & Plan: Had tracheostomy, closure in 2010. Bilateral lower extremity edema 03/31/2014 Acute renal failure (ARF) 03/15/2014 Muscle cramps 03/15/2014 Bilateral primary osteoarthritis of knee 014 Diabetic neuropathy 01/25/2014 Lumbar radiculopathy 01/25/2014 Lumbar facet arthropathy 01/25/[address] 08/22/2011 Encounters Date Type Department Care Team Description 06/01/2025 Refill [facility] [address] [place] [address] Ju Bautista, PIPE OUT WORKER Intention tremor 06/01/2025 Refill [facility] [address] [place] [phone] Ju Bautista, PIPE OUT WORKER Intention tremor 04/28/2025 Refill [facility] [address] [place] [phone] Ju Bautista, TERESO Intention tremor (Primary Dx) from Last 3 Months Immunizations Immunization Administration Dates Next Due Influenza Whole 07/18/2015 Influenza, High Dose Seasona l, Preservative Free 07/06/2015 Influenza, Unspecified 08/01/2019,2016,08/05/2016,08/06,10/06/2002 Influenza, injectable, MDCK, preservative free, quadrivalent 07/19/2021,07/07/2020,07/24/2018 Influenza, injectable, quadr ivalent, preservative free 08/10/2018,09/13/2014 Influenza, seasonal, injectable 06/17/2012 Influenza, seasonal, injecta ble, preservative free 06/25/2013 Pneumococcal Conjugate PCV 13 11/13/2015 Pneumococcal Polysaccharide PPSV23 08/11/2017, Td (adult), unspecified 10/06/2000 Family History Medical History Relation Name Comments Heart attack Father Kidney disease Father Heart attack Mother Relation Name Status Comments Father Mother Social History Tobacco Use Types Packs/Day Years Used Date Smoking Tobacco: Never Smokeless Tobacco: Never Tobacco Cessation:Counseling Given: Not Answered Sex and Gender Information Value Date Recorded Sex Assigned at Male 01/06/2024 8:14 AM EDT Legal Sex Male 7:41 PM EDT Gender Identity Male 01/06/2024 8:14 AM EDT Sexual Orientation Not on file Last Filed Vital Signs Vital Sign Reading Time Taken Comments Blood Pressure 144/88 03/24/2024 8:45 AM EDT Pulse - - Temperature - - Respiratory Rate - - Oxygen Saturation - - Inhaled Oxygen Concentration - - Weight 164 kg (362 lb) 09/22/2018 12:00 PM EST Height 175.3 cm (5' 9 ) 05/28/2024 10:57 AM EDT Body Mass Index 49.1 09/22/2018 12:00 PM EST Plan of Treatment Health Maintenance Due Date Last Done Comments CT Colonography 1960 Colonoscopy 1960 Colorectal Cancer Screening 1960 FIT-DNA 1960 FIT 1960 FOBT 1960 Sigmoidoscopy 1960 Influenza Vaccine (#1) 2025 , 07/07/2020, 08/01/2019, Additional history exists Insurance [employer] [place]ICAID [place] Care Teams Data Capture Clerk Relationship Specialty Start Date End Date Say Amato MD PCP - General Family Medicine 03/24/24
--- OUTSIDE RECORDS SUMMARY | 2025-06-09 10:32 | XMS_ITS | Encounter Summary ---
Author Organization [facility] Address [address] [place] [address] Care Team Providers Care Farm Machinery Engine Mechanic Name Role Phone Martine Kovacs MD Primary Care Provider [phone] Say Amato MD Primary Care Provider [phone] Saúl Lunsford MD Unavailable [phone] Source Comments In the event this information is protected by the Federal Confidentiality of Alcohol and Drug AbusePatient Records regulations: The Federal rules restrict any use of the information to criminally investigate or prosecute any alcohol or drug abuse patient.[facility] Encounter Details Date Type Department Care Team (Late st Contact Info) Description 07/13/2016 Patient Msg Medical Records [address] [place] [address] Provider, Ccf RE: Patient Registration Completed Social [...] on filedocumented in this encounter Care Teams Farm Machinery Engine Mechanic Relationship Specialty Start Date End Date Martine Kovacs MD [address] [place] [address] PCP - General 11/15/08 07/14/16 Say Amato MD [address] [place] [address] PCP - General Family Medicine 07/15/16 Saúl Lunsford MD [address] [place] [address] Cardiology 01/21/22 documented as of this encounter
--- OUTSIDE RECORDS SUMMARY | 2025-06-09 10:32 | XMS_ITS | Encounter Summary ---
Author Organization [facility] Address [address] [place] [id number] Care Team Providers Care Material Controller Name Role Phone Say Amato MD Primary Care Provider [phone] Saúl Lunsford MD Unavailable [phone] Source Comments In the event this information is protected by the Federal Confidentiality of Alcohol and Drug AbusePatient Records regulations: The Federal rules restrict any use of the information to criminally investigate or prosecute any alcohol or drug abuse patient.[facility] Encounter Details Date Type Department Care Team (Late st Contact Info) Description 09/22/2023 Patient Msg Neurology [address] [phone] Provider, [facility] Requested EMG Appointment Social History Tobacco Use Types Packs/Day Years Used Date Smoking Tobacco: Never Cigarettes Smokeless Tobacco: Current Chew Last attempted to quit: 09/17/2015 Alcohol Use Standard Drinks/Week Comments No 0 (1 standard drink = 0.6 oz pur e alcohol) AUDIT-C Answer Date Recorded Q1: How often do you have a drink containing alc ohol? Never 01/04/2020 Average Number of Drinks Not on file 020 Frequency of Binge Drinking Not on file 12/06 PHQ-2 Answer Date Recorded PHQ-2 score 6 09/17/2023 Area Deprivation Index Answer Date Benigno rded National Score (1-100), lower number is lower ri sk Not on file 09/10/2020 State Score (1-10), lower number is lower risk N ot on file 09/10/2020 Data from: https://www.neighborhoodatlas.med[facility]/. Last address used for calculation Not [...] on filedocumented in this encounter Care Teams Material Controller Relationship Specialty Start Date End Date Say Amato MD PCP - General Family Medicine 07/15/16 Saúl Lunsford MD Cardiology 01/21/22 documented as of this encounter
--- OUTSIDE RECORDS SUMMARY | 2025-06-09 10:40 | XMS_ITS | CCD ---
Author Organization [facility] Care Team Providers Care Hotel Service Manager Name Role Phone Say Mccormick MD Primary Care Provider [phone] Say Mccormick MD Primary Care Provider [phone] Jonn GEORGE, ab med Unavailable ThuandavidSanjay Unavailable JESUS RUSS Attending Unavailable JESUS RUSS Admitting Unavailable SELF, REFERRED Referring Unavailable SAY MCCORMICK Primary Care Unavailable AMY REMY Surgeon Unavailable [place] Procedure Practitioner Unavailab le [place] Procedure Practitioner Unavailab DAVON Rivera Surgeon Unavailable ANNY Silva, DR SMITH Admitting Unavailable ANNY Silva, DR SMITH Primary Care Unavailable ANNY Silva, DR SMITH Consulting Unavailable DR SAY REECE Attending Unavailable VALENTINO, DR ROCK Das Consulting Unavailable PRANAV VASQUEZ Attending Unavailable CHRISTINA, PRANAV Admitting Unavailable DR SAY REECE Primary Care Unavailable PRANAV VASQUEZ Consulting Unavailable FASTAN, CARMICHAEL H Attending Unavailable JODIE HURST Primary Care Unavailable FASTAN, CARMICHAEL H Admitting Unavailable SOFYA HIDALGO Attending Unavailable HOWIE HIDALGOA Admitting Unavailable DR SAY REECE Primary Care Unavailable ALISA HOLMAN Consulting Unavailable BERRY, SOFYA Consulting Unavailable LOS BAIRES Consulting Unavailable BERRY, SOFYA Admitting Unavailable DR SAY REECE Primary Care Unavailable DR ROCK AVELAR Consulting Unavailable SOFYA HIDALGO Attending Unavailable HOWIE HIDALGOA Consulting Unavailable FAWWAD, CARMICHAEL H Attending Unavailable FASTAN, CARMICHAEL H Admitting Unavailable DR SAY REECE Primary Care Unavailable JODIE HURST Admitting Unavailable ARIS, JODIE Primary Care Unavailable [...] Primary Care Unavailable SURI BROWNLEE Consulting Unavailable Say Mccormick MD Primary Care Provider [phone] Jonn GEORGE, Saúl Kovacs Unavailable Marlena GEORGE, Ramon Morales Attending Unavailable SAY MCCORMICK Primary Care Unavailable SAY MCCORMICK Referring Unavailable SAY MCCORMICK Primary Care Unavailable HOY, SAY M Referring Unavailable HOY, SAY M Primary Care Unavailable HOY, SAY M Referring Unavailable HOY, SAY M Primary Care Unavailable HOY, SAY M Primary Care Unavailable HENNIGS, SHANE L Referring Unavailable HOY, SAY M Primary Care Unavailable OBED FLORIAN Attending Unavailable SHANE PARHAM L Referring Unavailable HOY, SAY M Primary Care Unavailable HENNISANDI, SHANE L Referring Unavailable HOY, SAY M Primary Care Unavailable SHANE PARHAM L Attending Unavailable Say Mccormick MD Primary Care Provider [phone] YUDITH MARTINEZ Referring Unavailable HOY, SAY M Primary Care Unavailable JENNIFERDIOGENES ACUNA Referring Unavailable HOY, SAY M Primary Care Unavailable HOY, SAY M Primary Care Unavailable CHARLEE ARCE Referring Unavailable HOY, SAY M Primary Care Unavailable SEVERIANO MORENO Consulting Unavailable JACKIE RIVAS Admitting Unavailable LORI LEBLANC Attending Unavailable CHARO SLAUGHTER Consulting Unavailable MARLON BARLOW Consulting Unavailable JEFFERY CHRISTINE Consulting Unavailable Say Mccormick MD Primary Care Provider [phone] JU CERVANTES Attending Unavailab le HOY, SAY M Referring Unavailable JU CERVANTES Referring Unavailab JU Dimas Referring Unavailab YOSSI Palumbo Attending Unavailable JU CERVANTES Attending Unavailab JU Dimas Attending Unavailab YOSSI Palumbo Attending Unavailable YOSSI BOWER Attending Unavailable YOSSI BOWER Attending Unavailable Andry LIU Attending Unavailable Say Mccormick MD Primary Care Provider [phone] HOY, SAY M Referring Unavailable HOY, SAY M Primary Care Unavailable HOY, SAY M Primary Care Unavailable TIFFANIE LEIGH Referring Unavailable DIOGENES RODRIGUEZ Referring Unavailable RICHARD ARVIZU Attending Unavailable DIOGENES RODRIGUEZ Referring Unavailable DIOGENES RODRIGUEZ Referring Unavailable DIOGENES RODRIGUEZ Attending Unavailable LEN GOMEZ Attending Unavailable LAURA ROSADO Attending Unavailable RICHARD ARVIZU Attending Unavailable LICO ARVIZUSTAIR Admitting Unavailable LICO ARVIZUSTAIR Attending Unavailable DIOGENES RODRIGUEZ Referring Unavailable GABINO, RICHARD Referring Unavailable MARIO VAN Attending Unavailable TIFFANIE LEIGH Referring Unavailable GABINO, RICHARD Referring Unavailable GABINO, RICHARD Referring Unavailable Say Mccormick MD Primary Care Provider [phone] Allergies Allergy Classification Reported Allergen(s) Allergy Type Date of Onset Reaction(s) Facility (20 sources) beta-Blocking agent; Translations: [BETA-BLOCKERS (BETA-ADRENERGIC BLOCKING AGTS)] Drug Allergy 07-24-20 11 Itching, Other: See Comments [facility] (17 sources) diazePAM; Translations: [DIAZEPAM] Drug Allergy 03-03-20 08 Unknown [facility] (20 sources) gabapentin; Translations: [GABAPENTIN] Drug Allergy 11-25-19 09 Other: See Comments, Unknown, Other, Other (See Comments) [facility] (20 sources) hydrALAZINE; Translations: [HYDRALAZINE] Drug Allergy 05-19-20 13 Unknown [facility] (3 sources) Adrenergic Beta-Antagonists Drug allergy Unknown [facility] Other (2 sources) Adrenergic Beta-Antagonists Drug allergy (disorder) 05-29-20 16 [facility] (5 sources) diazePAM; Translations: [Valium] Drug Allergy 05-19-20 13 [facility] (1 source) gabapentin Drug Allergy 01-23-20 19 [facility] (2 sources) gabapentin; Translations: [Neurontin] Drug Allergy 05-29-20 [address] [facility] Rep[facility] (6 sources) beta-Blocking agent Drug Allergy 07-24-20 11 Itching, Other: See Comments, Headache [facility] (2 sources) Neuromuscular Blocking Agents Propensity to adverse reactions to drug 05-19-20 13 [facility] (12 sources[facility] Diazepam Allergy to substance 03-03-20 08 Other, Unknown [facility] (1 source) Adrenergic Beta-Antagonists; Translations: [beta blockers] Propensity to adverse reactions (disorder) [facility] Repository NEGATED: Highlighted row has been ruled out! (2 sources) Other Propensity to adverse reactions 07-29-20 13 Nausea And Vomiting [facility] Medications Current Medications Medication Drug Class(es) Dates Sig (Normalized) Sig (Original) Acetaminophen (1 source) Start: 11-29-2023 acetaminophen (TYLENOL) tablet 650 mg amitriptyline hydrochloride 25 mg oral tablet (12 sources) Tricyclic Antidepressant Start: 12-31-2023 take 1 [...] nce daily. apixaban 5 mg oral tablet (12 sources) Factor Xa Inhibitor Start: 02-12-2024 take [...] day Active baclofen 10 mg oral tablet (12 sources) gamma-Aminobutyric Acid-ergic Agonist take 1 tablet [...] capsule Indications: CIDP (chronic inflammatory demyelinating polyneuropathy) ([facility]) Take 1 capsule (10 mg) by mouth in the morning and in the evening 60 capsule 11 06/21/2024 07/21/2024 Active Blood Glucose Monitoring Suppl (Accu-Chek Guide Me) w/Device kit (12 sources) Start: 02-21-2023 Blood Glucose Monitoring Suppl [...] daily. cetirizine hydrochloride 10 mg oral tablet (18 sources) Histamine-1 Receptor Antagonist Start: 04-01-2023 take [...] 07/27/2024 Active dexamethasone 2 mg oral tablet (20 sources) Corticosteroid Start: End: take 1 tablet by mouth in the morning dexAMETHasone (Decadron) 2 MG tablet Indications: CIDP (chronic inflammatory demyelinating polyneuropathy) (HCC) Take 1 tablet (2 mg) by mouth in the morning and 1 tablet (2 mg) in the evening. Take with meals. Do all this for 10 days. 20 tablet 1 07/30/2024 Active DULoxetine 20 mg delayed release oral capsule (2 sources) Serotonin and Norepinephrine Reuptake Inhibitor Start: take 1 capsule by mouth once daily DULoxetine (CYMBALTA) 20 MG extended release capsule Take 1 capsule by mouth daily 30 capsule 3 12/05/2023 Active empagliflozin 25 mg oral tablet (15 sources) Sodium-Glucose Cotransporter 2 Inhibitor Start: take [...] ml immunoglobulin g, human 100 mg/ml injection (12 sources) Human Immunoglobulin G Start: 02-27-2024 Gamunex -C 40 GM/400ML solution 02/27/2024 Active 3 ml insulin degludec 100 unt/ml pen injector (15 sources) Insulin Analog Start: 11-05-2023 Tresiba FlexTo [...] 12 hours or as directed by MD Mata patch 10/27/2022 Active Start: 10-27-2022 apply 1 dose transde rmal route every twenty-four hours lidocaine (LIDODERM) 5 % Place 1 patch onto the skin every 24 hours 0 10/27/2022 Active Comment on above: Apply 1 Patch as dir ected every 24 hours. linaclotide 0.145 mg oral capsule (12 sources) Guanylate Cyclase-C Agonist take 1 capsule [...] Not-Taking metFORMIN hydrochloride 500 mg oral tablet (16 sources) Biguanide Start: 04-01-2023 End: 12-02-2023 take 1 tablet by mouth in the morning metFORMIN (Glucophage) 500 MG tablet Take 1 tablet by mouth in the morning and 1 tablet before bedtime. 04/01/2023 Active Comment on above: Take 1 tablet by kristen th two times a day. metoprolol tartrate 50 mg oral tablet (12 sources) beta-Adrenergic Noah Start: 12-25-2023 take 1 [...] Q-tip naloxone hydrochloride 40 mg/ml nasal spray (12 sources) Opioid Antagonist Start: 01-12-2024 naloxone (Narcan) [...] once daily ondansetron 4 mg oral tablet (16 sources) Serotonin-3 Receptor Antagonist Start: 05-21-20 End: 06-20-20 take 1 tablet by mouth every eight hours for nausea ondansetron (Zofran) 4 MG tablet Indications: CIDP (chronic inflammatory demyelinating polyneuropathy) ([facility]) Take 1 tablet (4 mg) by mouth [...] 4 mg OXcarbazepine 150 mg oral tablet (14 sources) Anti-epilept ic Agent Start: 07-30-2024 End: 10-28-2024 take 0.5 tablet by mouth three times daily at bedtime OXcarbazepine (Trileptal) 150 MG tablet Indications: CIDP (chronic inflammatory demyelinating polyneuropathy) (HCC) , 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 oxyCODONE hydrochloride 10 mg oral tablet (12 sources) Opioid Agonist Start: 02-26-2024 take 1 [...] day. Active take 1 tablet by kristen th [...] tablet Indications: CIDP (chronic inflammatory demyelinating polyneuropathy) ([facility]) Take 1 tablet (100 mg) by mouth in the morning and in the evening 60 tablet 11 06/21/2024 07/21/2024 Active topiramate 200 mg oral tablet (20 sources) Start: 04-28-2025 End: 06-01-2025 take 1 tablet by mouth twice daily at bedtime topiramate (Topamax) 200 MG tablet Indications: Intention tremor TAKE 1 TABLET BY MOUTH TWICE DAILY (MORNING AND BEDTIME) 180 tablet 3 06/01/2025 Active Start: 01-07-2024 End: 01-06-2025 take 1 tablet by mouth in the morning topiramate (Topamax) 200 MG tablet Indications: Intention tremor Take 1 tablet (200 mg) by mouth in the morning and 1 tablet (200 mg) before bedtime. 180 tablet 3 01/07/2024 01/06/2025 Active Start: 11-30-2023 take 1 tablet by kristen th twice daily 100 mg, Oral, 2 TIMES [...] actuat umeclidinium 0.0625 mg/actuat dry powder inhaler (20 sources) Anticholinergic Start: 11-05-2023 Incruse Ellipta 62.5 [...] 0 Active take 2 tablets by mo [facility] once daily Warfarin 5mg 5 mg 2 [...] Comment on above: Take 1 capsule by [facility] four times daily. furosemide 40 mg oral tablet (20 sources) Loop Diuretic Start: 11-08-19 End: 12-02-19 take 1 tablet by mouth twice daily furosemide (LASIX) 40 MG tablet TAKE 1 TABLET BY MOUTH TWICE A DAY 0 11/24/2021 12/02/2023 Discontinued (LIST CLEANUP) Comment on above: Take 1 tablet by [facility] twice daily. 250 ml glucose 50 mg/ml [...] PRN Not-Taking indomethacin 50 mg oral capsule (20 sources) Nonsteroidal Anti-inflammatory Drug Start: 05-12-20 End: [...] needed for pain TAKE 1 CAPSULE BY [facility] THREE TIMES A DAY NEEDED [...] by mouth once daily. polyethylene glycol 3350 [id number] mg powder for oral solution (1 source) [...] mention of obstruction or gangrene] 12-01-2014 Episodic Acute cerebrovascular disease (20 sources) Stroke of uncertain pathology; Translations: [Embolic stroke] Onset: 8 01-22-2024 Chronic Anxiety disorders (12 sources) Anxiety state; Translations: [Generalized anxiety disorder] Onset: 3 01-22-2024 Chronic Asthma (15 sources) Asthma; Translations: [Unspecified asthma, uncomplicated] Onset: 2 12-01-2014 Chronic Cardiac and circulatory congenital anomalies (15 sources) Congenital heart disease; Translations: [Congenital malformation [...] 07-18-2016 Chronic Genitourinary symptoms and ill-defined conditions (13 sources) Urge incontinence of urine; Translations: [Urge incontinence] Onset: 9 01-22-2024 Chronic Gout and other crystal arthropathies (14 sources) Gout; Translations: [Gout, unspecified] Onset: 3 [...] Onset: 4 08-18-2014 Chronic Other acquired deformities (12 sources) Equinus contracture of the ankle; Translations: [Contracture, right ankle] Onset: 4 01-22-2024 Chronic Other aftercare (5 sources) Encounter for therapeutic drug level monitoring; Translations: [ENC THERAPEUTC DRUG LEVL MONITORING] Onset: 3 Episodic Other aftercare (1 source) FPC (current) use of anticoagulants; Translations: [IN [employer] USE ANTICOAGULANTS] Onset: 3 Episodic Other aftercare (1 source) superintendent terminal (current) use of insulin; Translations: [superintendent terminal (current) use of insulin] Onset: 4 Episodic Other and ill-defined cerebrovascular disease (20 sources) Cerebrovascular disease; Translations: [Other cerebrovascular disease] Onset: 2 11-25-2008 Chronic Other and ill-defined heart disease (12 sources) Diastolic dysfunction; Translations: [Other ill-defined heart diseases] Onset: 0 01-22-2024 Chronic Other connective tissue disease (1 source) Other symptoms and signs involving the musculoskeletal system; Translations: [Other symptoms and signs involving the musculoskeletal system] Onset: 4 Episodic Other connective tissue disease (1 source) Facial weakness; Translations: [Facial weakness] Onset: 4 Episodic Other gastrointestinal disorders (14 sources) Irritable bowel syndrome; Translations: [Irritable bowel syndrome without diarrhea] Onset: 4 03-28-2014 Chronic Other hereditary and degenerative nervous system conditions (20 sources) Shuddering attacks; Translations: [Benign shuddering attacks] Onset: 2 11-25-2008 Chronic Other hereditary and degenerative nervous system conditions (6 sources) Essential tremor; Translations: [Essential tremor] Onset: 4 Chronic Other hereditary and degenerative nervous system conditions (14 sources) Intention tremor; Translations: [Other specified forms [...] Onset: 4 Chronic Other nervous system disorders (14 sources) Patient encounter status; Translations: [Other chronic pain] Onset: 4 01-20-2015 Chronic Other nervous system disorders (1 source) Polyneuropathy, unspecified; Translations: [Polyneuropathy, unspecified] Onset: 4 Chronic Other nervous system disorders (14 sources) Disorder of brain; Translations: [Encephalopathy, unspecified] Onset: 4 12-02-2023 Chronic Other nervous system disorders (2 sources) Neuropathy; Translations: [Polyneuropathy, unspecified] Onset: 4 12-03-2023 Chronic Other nervous system disorders (18 sources) Chronic inflammatory demyelinating polyradiculoneuropathy ; Translations: [...] Chronic Other nutritional; endocrine; and metabolic disorders (18 sources) Morbid obesity; Translations: [Morbid (severe) obesity due to excess calories] Onset: 4 08-18-2014 Chronic Other nutritional; endocrine; and metabolic disorders (2 sources) Obesity; Translations: [Obesity, unspecified] 03-28-2014 Chronic Other upper respiratory disease (14 sources) Tracheostomy present; Translations: [Tracheostomy status] Onset: 1 03-28-2014 Chronic Other upper respiratory disease (9 sources) Other diseases of pharynx; Translations: [Other diseases of pharynx, not elsewhere classified] 11-25-2008 Episodic Parkinson`s disease (20 sources) Parkinson's disease; Translations: [Parkinson's disease] Onset: 5 01-21-2022 Chronic Phlebitis; thrombophlebitis and thromboembolism (20 sources) 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; Translations: [Chronic embolism and thrombosis of unspecified deep veins of proximal lower extremity, bilateral] Onset: 8 08-06-2018 Chronic Residual codes; unclassified (20 sources) Obstructive sleep apnea syndrome; Translations: [Obstructive sleep apnea (adult) (pediatric)] Onset: 4 Chronic Residual codes; unclassified (12 sources) Hypersomnia with sleep apnea; Translations: [Hypersomnia, [...] Date Documented Da te Episodic/Chronic Abdominal pain (16 sources) Unspecified abdominal pain; Translations: [Abdominal pain] Onset: 01-07-2023 Episodic Acquired foot deformities (9 sources) Bilateral foot drop; Translations: [Foot drop, right foot] Onset: 08-03-2024 07-30-2024 Episodic Acute and unspecified renal failure (14 sources) Acute renal failure syndrome; Translations: [Acute [...] ecchymoses] Onset: 09-20-2024 Episodic E Codes: Fall (12 sources) Fall; Translations: [Unspecified fall, initial encounter] Onset: 03-09-2024 03-09-2024 Episodic Fluid and electrolyte disorders (20 sources) Hypervolemia; Translations: [Fluid overload, unspecified] Onset: 03-15-2014 10-08-2018 Episodic Genitourinary symptoms and ill-defined conditions (13 sources) Kg hematuria; Translations: [Gross hematuria] Onset: 12-01-2018 01-22-2024 Episodic Immunizations and screening for infectious disease (15 sources) 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; Translations: [Carrier or suspected carrier of Methicillin resistant Staphylococcus aureus] Onset: 07-18-2015 Episodic Malaise and fatigue (20 sources) Other fatigue; Translations: [Asthenia] Onset: 03-15-2014 11-06-2023 Episodic Nonspecific chest pain (3 sources) Chest pain, unspecified; Translations: [Other chest pain] Onset: 05-27-2022 Episodic Other acquired deformities (2 sources) Spondylolysis, lumbar region; Translations: [Spondylolysis, lumbar region] Onset: 06-02-2024 Episodic Other aftercare (2 sources) Patient encounter status; Translations: [Encounter for therapeutic drug level monitoring] Onset: 01-25-2014 08-18-2014 Episodic Other aftercare (12 sources) Long-term current use of anticoagulant; Translations: [superintendent terminal (current) use of anticoagulants] Onset: 01-22-2024 01-22-2024 Episodic Other circulatory disease (4 sources) Personal history of transient ischemic attack (TIA), and cerebral infarction without residual deficits; Translations: [PERS HX TIA AND CI NO RESID DEFICIT] Onset: 05-29-2022 Episodic Other connective tissue disease (14 sources) Cramp; Translations: [Cramp and spasm] Onset: 03-15-2014 03-02-2024 Episodic Other connective tissue disease (14 sources) Recurrent falls ; Translations: [Repeated falls] Onset: 11-30-2023 11-30-2023 Episodic Other connective tissue disease (12 sources) Spasm of cervical paraspinous muscle; Translations: [Other muscle spasm] Onset: 03-24-2024 03-24-2024 Episodic Other diseases of kidney and ureters (14 sources) Kidney disease; Translations: [Disorder of kidney and ureter, unspecified] Onset: 01-29-2024 12-01-2014 Episodic Other gastrointestinal disorders (15 sources) Dysphagia; Translations: [Dysphagia, unspecified] Onset: 11-28-2014 11-28-2014 Episodic Other gastrointestinal disorders (12 sources) History of hematemesis; Translations: [Personal history of other diseases of the digestive system] Onset: 01-22-2024 01-22-2024 Episodic Other injuries and conditions due to external causes (12 sources) H/O: head injury; Translations: [Personal history of other (healed) physical injury and trauma] Onset: 01-07-2024 03-24-2024 Episodic Other lower respiratory disease (4 sources) Other forms of dyspnea; Translations: [OTHER FORMS OF DYSPNEA] Onset: 06-24-2022 Episodic Other lower respiratory disease (1 source) Dyspnea, unspecified; Translations: [DYSPNEA UNSPECIFIED] Onset: 05-27-2022 Episodic Other lower respiratory disease (13 sources) Dyspnea; Translations: [Shortness of breath] Onset: 06-28-2022 01-22-2024 Episodic Other nervous system disorders (2 sources) Pill rolling; Translations: [Tremor, unspecified] Onset: 03-15-2014 Episodic Other nervous system disorders (12 sources) Numbness; Translations: [Anesthesia of skin] Onset: 03-09-2024 03-09-2024 Episodic Other nervous system disorders (2 sources) Other acute postprocedural pain; Translations: [Other acute postprocedural pain] Onset: 10-14-2024 Episodic Other screening for suspected conditions (not mental disorders or infectious disease) (13 sources) Raised prostate specific antigen; Translations: [Elevated [...] neurostimulator] Onset: 09-20-2024 Episodic Residual codes; unclassified (20 sources) Difficult venous access; Translations: [Other specified health status] Onset: 01-21-2022 Episodic Residual codes; unclassified (20 sources) Tobacco use and exposure - finding; Translations: [Tobacco use] Onset: 01-21-2022 Episodic Residual codes; unclassified (14 sources) Bilateral lower limb edema; Translations: [Localized edema] Onset: 03-31-2014 03-31-2014 Episodic Residual codes; unclassified (14 sources) Other specified personal risk factors, not elsewhere classified; Translations: [Other specified personal history presenting hazards to health] Onset: 01-29-2024 12-01-2014 Episodic Residual codes; unclassified (16 sources) Altered mental status; Translations: [Altered mental status, unspecified] Onset: 11-28-2023 11-28-2023 Episodic Residual codes; unclassified (14 sources) Staring; Translations: [Transient alteration of awareness] Onset: 12-01-2023 12-01-2023 Episodic Residual codes; unclassified (14 sources) Transient alteration of awareness; Translations: [Transient alteration of awareness] Onset: 12-01-2023 12-01-2023 Episodic Residual codes; unclassified (12 sources) Amnesia; Translations: [Other amnesia] Onset: 01-07-2024 01-07-2024 Episodic Residual codes; unclassified (12 sources) Edema of lower extremity; Translations: [Localized edema] Onset: 09-04-2020 01-22-2024 Episodic Residual codes; unclassified (2 sources) Localized edema; Translations: [Localized edema] Onset: 07-26-2024 Episodic Skin and subcutaneous tissue infections (12 sources) Cellulitis; Translations: [Cellulitis, unspecified] Onset: 08-19-2023 01-22-2024 Episodic Spondylosis; intervertebral disc disorders; other back problems (20 sources) Low back pain; Translations: [Lumbago] Onset: 01-25-2014 11-25-2008 Episodic Syncope (15 sources) Syncope and collapse; Translations: [Syncope and collapse] Onset: 07-05-2022 12-01-2023 Episodic Urinary tract infections (13 sources) Urinary tract infectious disease; Translations: [Urinary tract infection, site not specified] Onset: 12-01-2018 01-22-2024 Episodic Results Test Name Value Interpretation Reference Range Facility 3612-13-2024 36 Please schedule patient for next week. For now, he can turn the stimulation off if he experiences the side effects. [facility] 36 Please schedule patient for next week. For now, he can turn the stimulation off if he experiences the side effects. [facility] 12-10-2024 36 Phone smith to patient, he describes sx as in llast message from [employer]. He states tingling started day after visit. He is going to try reaching out to [employer]. Ill await call back from Dr aVn [facility] 36 I don't believe we [...] better tremor control. 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 [facility] 3612-09-2024 36 Patient, Andry, called the office and stated that he was in on 11-15-24 for his DBS. Patients states that he was informed to call the office if he didn't get any improvement. Patient states no improvement from his office. Please advise. [facility] 3711-29-2024 37 Final setting left: Active program: group A 2+1- [employer]:3.0 mA Pulse Width: Frequency:185 Patient Limit: 3.0-3.5 mA Please contact Victor Hugo Sandoval ([employer] Rep) regarding how to use your robot programmer [phone] Please follow up with your neurologist regarding CIDP, numbness, weakness, pain Referral to Dr. Gross for CIDP management, in [facility] Office Visiton 11-29-2024 Follow-up visit [id number] Joanie Pierre aleja Magallanes 1960 M Date Provider Department Center 11/29/2024 MARIO RIVERA MP NEURO Medical [facility] Family History Problem Relation Age of Onset Coronary artery disease Mother Coronary artery disease Father Family Status - Relation Status Age at Mother Father Level of Service:11534 [place] OFFICE/OUTPATIENT ESTABLISHED LOW MDM 20 MIN Reason for Visit and Comments: Tremors [119882] - New patient here for a essential tremors. [facility] Office Visiton 11-02-2024 Follow-up visit [id number] Joanie Pierre aleja Magallanes 1960 M Date Provider Department Center 11/02/2024 RICHARD DUARTE [facility] SURG [place] Family History Problem Relation Age of Onset Coronary artery disease Mother Coronary artery disease Father Family Status - Relation Status Age at Mother Father Level of Service:53155 [place] POSTOP FOLLOW UP VISIT RELATED TO ORIGINAL PX Reason for Visit and Comments: Post-op [483] [facility] 36on 10-15-2024 36 Spoke to [...] place new prescription for surgical site pain. [facility] 36 Pt's called stating that the pain medication that was prescribed is not helping with his pain. Please advise. [facility] Telephoneon 10-15-2024 Telephone [id number] Joanie Pierre 1960 M Date Provider Department Center 10/15/2024 KRISTIN ALVAREZ [facility] [place] Family History Problem Relation Age of Onset Coronary artery disease Mother Coronary artery disease Father Family Status - Relation Status Age at Mother Father [facility] HPon 10-14-2024 HP H&P reviewed. The patient was examined and there are no changes to the H&P. [facility] NURSNOTEon 10-14-2024 NURSNOTE Pt took home pain me d for minor pain prior to DC home. [facility] NURSNOTE DC instructions reviewed with patient and , copy given. Prescription filled and sent home with patient. [facility] OPNOTEon 10-14-2024 OPNOTE Date: 10/14/2024 Location: [facility] OR Name: Andry Pierre, : 1960, Diagnosis Pre-op Diagnosis * Parkinson's disease, unspecified whether dyskinesia present, unspecified whether manifestations fluctuate (CMS/HCC) [G20.A1] Post-op Diagnosis * Parkinson's disease, unspecified whether dyskinesia present, unspecified whether manifestations fluctuate (CMS/HCC) [G20.A1] Procedures DEEP BRAIN STIMULATOR, IPG EXCHANGE 03226 - [place] INSJ/RPLCMT CRANIAL NEUROSTIM PULSE GENERATOR Surgeons Primary: Richard Arvizu MD Procedure Summary Anesthesia: General ASA: III Estimated Blood Loss: Minimal Drains: * None in log * Implants Type Name Action Serial No. Device PERCEPT PC BRAINSENSE Implanted [id number] Device SENSIGHT CONNECTOR PLUG Implanted Device POCKET ADAPTOR FOR DEEP BRAIN STIMULATION Implanted Staff: Paper Reclaiming Machine Operator: Rl Drummond RN Scrub Person: Reema Gaytan CST Communications Associate: Duke Molina CSA Indications: Andry Pierre is an 63 y.o. male who is having surgery for Parkinson's disease, unspecified whether dyskinesia present, unspecified whether manifestations fluctuate (CMS/HCC) [G20.A1]. Findings: Unchanged lead impedances. Complications: None; patient tolerated the procedure well. Disposition: PACU - hemodynamically stable. Condition: stable Specimens Collected: No specimens collected during this procedure. Attending Attestation: I performed the procedure. Richard Gabino [facility] OPNOTE DEEP BRAIN STIMULATOR, IPG EXCHANGE Operative Note Date: 10/14/2024 Location: [facility] OR Name: Andry Pierre, : 1960, Diagnosis Pre-op Diagnosis * Parkinson's disease, unspecified whether dyskinesia present, unspecified whether manifestations fluctuate (CMS/HCC) [G20.A1] Post-op Diagnosis * Parkinson's disease, unspecified whether dyskinesia present, unspecified whether manifestations fluctuate (CMS/HCC) [G20.A1] Procedures DEEP BRAIN STIMULATOR, IPG EXCHANGE 01517 - [place] INSJ/RPLCMT CRANIAL NEUROSTIM PULSE GENERATOR Surgeons Primary: Richard Arvizu MD Procedure Summary Anesthesia: General ASA: III Estimated Blood Loss: Minimal Drains: * None in log * Implants Type Name Action Serial No. Device PERCEPT PC BRAINSENSE Implanted [id number] Device SENSIGHT CONNECTOR PLUG Implanted Device POCKET ADAPTOR FOR DEEP BRAIN STIMULATION Implanted Staff: Paper Reclaiming Machine Operator: Rl Drummond RN Scrub Person: Reema Gaytan CST Communications Associate: Duke Molina CSA Indications: Andry Pierre is [...] style 2 pin extension lead. A new [employer] PC generator was opened onto the field. [...] Findings: Impeda (more content not included)... Normal [facility] POCT GLUCOSE METER UNSOLICIT ED RESULTSon 10-14-2024 Glucose [Mass/Vol] 82 mg/dL Normal 70-105 [facility] Comment on above: Order Comment: Waive d Testing in the ED is performed under the ED CLIA certificate #[id number]. Result Comment: [email or web address] Performed By: #### L [id number] #### [facility] ([facility]) [address] [facility] [place] [place] [address] Glucose [Mass/Vol] 67 mg/dL Low 70-105 [facility] Comment on above: Order Comment: Waive d Testing in the ED is performed under the ED CLIA certificate #[id number]. Result Comment: eyou ng12 Performed By: #### L [id number] ####[facility] ([facility])[address] [facility] [place] [address] Glucose [Mass/Vol] 73 mg/dL Normal 70-105 [facility] Comment on above: Order Comment: Waive d Testing in the ED is performed under the ED CLIA certificate #[id number]. Result Comment: eyou [email or web address] Performed By: #### L [id number] #### [facility] ([facility]) [address] [facility] [place] [address] Glucose [Mass/Vol] 59 mg/dL Low 70-105 [facility] Comment on above: Order Comment: Waive d Testing in the ED is performed under the ED CLIA certificate #[id number]. Result Comment: eyou [email or web address] Performed By: #### L [id number] ####[facility] ([facility])[address] [place] [address] Telephoneon 09-23-2024 Telephone [phone] Joanie Pierre 1960 M Date Provider Department Center 09/23/2024 MEGA DONAHUE CARD [facility] Family History Problem Relation Age of Onset Coronary artery disease Mother Coronary artery disease Father Family Status - Relation Status Age at Mother Father Normal [facility] APTTon 09-20-2024 ACTIVATED PARTIAL THROMBOPLASTIN TIME IN PPP BY COAGULATION ASSAY 31.4 Seconds Normal 25.0-35.0 [facility] Comment on above: Result Comment: Clin ical significance of the APTT is questionable in the presence of heparin. Performed By: #### L [id number] #### [facility] ([facility]) [address] [place] [address] BASIC METABOLIC PANEL 09-05 Anion gap [Moles/Vol] 9 mmol/L Normal 7-20 [facility] Comment on above: Performed By: #### L [id number] #### [facility] ([facility]) [address] [place] [address] Calcium [Mass/Vol] 8.7 mg/dL Normal 8.6-10.3 [facility] Comment on above: Performed By: #### L [id number] #### [facility] ([facility]) [address] [place] [address] Chloride [Moles/Vol] 111 mmol/L High 98-[address] [facility] Comment on above: Performed By: #### L [id number] #### [facility] ([facility]) [address] [place] [address] CO2 [Moles/Vol] 28 mmol/L Normal 21-31 [facility] Comment on above: Performed By: #### L [id number] #### [facility] ([facility]) [address] [place] [address] Creatinine [Mass/Vol] 1.87 mg/dL High 0.70-1.30 [facility] Comment on above: Performed By: #### L [id number] #### [facility] ([facility]) [address] [place] [address] GLOMERULAR FILTRATION RATE ML/MIN/1.73 SQ M.PREDICTED 39.9 mL/min/1.73m*2 Low >60.0 [facility] Comment on above: Result Comment: [facility]???s estimated glomerular filtration rate (eGFR) will no [...] individuals. Performed By: #### L [id number] #### [facility] ([facility]) [address] [place] [address] Glucose [Mass/Vol] 125 mg/dL High 70-100 [facility] Comment on above: Performed By: #### L [id number] #### [facility] ([facility]) [address] [place] [address] Potassium [Moles/Vol] 3.7 mmol/L Normal 3.5-5.1 [facility] Comment on above: Performed By: #### L [id number] #### [facility] ([facility]) [address] [place] [address] Sodium [Moles/Vol] 144 mmol/L Normal 136-145 [facility] Comment on above: Performed By: #### L [id number] #### [facility] ([facility]) [address] [place] [address] Urea nitrogen [Mass/Vol] 28 mg/dL High 7-25 [facility] Comment on above: Performed By: #### L [id number] #### [facility] ([facility]) [address] [place] [address] UREA NITROGEN/CREATININE (MASS RATIO) IN SER/PLAS 15.0 Normal [facility] Comment on above: Performed By: #### L [id number] #### [facility] ([facility]) [address] [place] [address] CBC WITH AUTO DIFFERENTIALon 09-20-2024 Basophils (Bld) [#/Vol] 0.06 10*3/uL Normal 0.00-0.20 [facility] Comment on above: Performed By: #### L [id number] #### [facility] ([facility]) [address] [place] [address] Basophils/100 WBC (Bld) 0.8 % Normal 0.0-1.0 [facility] Comment on above: Performed By: #### L [id number] #### [facility] ([facility]) [address] [place] [address] Eosinophils (Bld) [#/Vol] 0.41 10*3/uL Normal 0.00-0.50 [facility] Comment on above: Performed By: #### L [id number] #### [facility] ([facility]) [address] [place] [address] Eosinophils/100 WBC (Bld) 5.3 % Normal 0.0-6.0 [facility] Comment on above: Performed By: #### L [id number] #### [facility] ([facility]) [address] [place] [address] Erythrocyte distribution width (RBC) [Ratio] 13.8 % Normal 11.5-15.0 [facility] Comment on above: Performed By: #### L [id number] #### [facility] ([facility]) [address] [place] [address] ERYTHROCYTE MEAN CORPUSCULAR HEMOGLOBIN CONCENTRATION (G/DL) BY AUTOMATED 32.4 g/dL Normal 32.0-35.0 [facility] Comment on above: Performed By: #### L [id number] #### [facility] ([facility]) [address] [place] [address] Hematocrit (Bld) [Volume fraction] 41.7 % Normal 39.0-55.0 [facility] Comment on above: Performed By: #### L [id number] #### [facility] ([facility]) [address] [place] [address] Hemoglobin (Bld) [Mass/Vol] 13.5 g/dL Normal 13.0-17.0 [facility] Comment on above: Performed By: #### L [id number] #### [facility] ([facility]) [address] [place] [address] Immature granulocytes (Bld) [#/Vol] 0.02 10*3/uL Normal 0.00-0.20 [facility] Comment on above: Performed By: #### L [id number] #### [facility] ([facility]) [address] [place] [address] Immature granulocytes/100 WBC (Bld) 0.3 % Normal 0.0-1.0 [facility] Comment on above: Performed By: #### L [id number] #### [facility] ([facility]) [address] [place] [address] Lymphocytes (Bld) [#/Vol] 2.15 10*3/uL Normal 1.20-4.00 [facility] Comment on above: Performed By: #### L [id number] #### [facility] ([facility]) [address] [place] [address] Lymphocytes/100 WBC (Bld) 27.6 % Normal 20.0-45.0 [facility] Comment on above: Performed By: #### L [id number] #### [facility] ([facility]) [address] [place] [address] MCH (RBC) [Entitic mass] 32.2 pg Normal 27.0-33.0 [facility] Comment on above: Performed By: #### L [id number] #### [facility] ([facility]) [address] [place] [address] MCV (RBC) [Entitic vol] 99.5 fL High 82.0-98.0 [facility] Comment on above: Performed By: #### L [id number] #### [facility] ([facility]) [address] [place] [address] Monocytes (Bld) [#/Vol] 0.54 10*3/uL Normal 0.10-1.00 [facility] Comment on above: Performed By: #### L [id number] #### [facility] ([facility]) [address] [place] [address] Monocytes/100 WBC (Bld) 6.9 % Normal 5.0-12.0 [facility] Comment on above: Performed By: #### L [id number] #### [facility] ([facility]) [address] [place] [address] Neutrophils (Bld) [#/Vol] 4.62 10*3/uL Normal 1.60-7.60 [facility] Comment on above: Performed By: #### L [id number] #### [facility] ([facility]) [address] [place] [address] Neutrophils/100 WBC (Bld) 59.1 % Normal 40.0-72.0 [facility] Comment on above: Performed By: #### L [id number] #### [facility] ([facility]) [address] [place] [address] NRBC (PER 100 WBCS) BY AUTOMATED COUNT 0.0 % Normal 0 [facility] Comment on above: Performed By: #### L [id number] #### [facility] ([facility]) [address] [place] [address] PLATELETS (10*3/UL) IN BLOOD AUTOMATED COUNT 224 10*3/uL Normal 150-400 [facility] Comment on above: Performed By: #### L [id number] #### [facility] ([facility]) [address] [place] [address] RBC (Bld) [#/Vol] 4.19 10*6/uL Low 4.20-5.70 [facility] Comment on above: Performed By: #### L [id number] #### [facility] ([facility]) [address] [place] [address] WBC (Bld) [#/Vol] 7.80 10*3/uL Normal 4.00-10.60 [facility] Comment on above: Performed By: #### L [id number] #### [facility] ([place]) [address] [place] [address] Consulton 09-20-2024 Consult [id number] Joanie Pierre Sona 1960 M Date Provider Department Center 09/20/2024 Melba-RICHARD ARVIZU [facility] SURG [place] Family History Problem Relation Age of Onset Coronary artery disease Mother Coronary artery disease Father Family Status - Relation Status Age at Mother Father Level of Service:51209 [place] OFFICE/OP CONSLTJ NEW/EST PT MOD MDM 40 MINUTES Reason for Visit and Comments: Consult [484] - DBS battery replacement Normal [facility] HPon 09-20-2024 HP Neurosurgery Consult Chief Complaint: Deep brain stimulator implanted pulse generator of service. History of Present Illness: Andry Pierre is a 63 y.o. right-handed male who presents in kind referral from Ju Cervantes NP with [facility] neurology in [place] for evaluation of a nonfunctional implanted pulse generator. A portion of his history is obtained from the medical record. Somewhere between 2000 and 2005 he had undergone placement of a left VIM DBS with a left single channel IPG by Dr. Glover, for treatment of essential tremor. He had undergone several IPG exchanges the last of which was in 2019 at the [facility]. In 2020, placement of a right VIM electrode was considered at the [facility] and the patient underwent a substantial workup, [...] disease Asthma Neuropathy CHF (congestive heart failure) ([facility]) Chronic deep vein thrombosis (DVT) of proximal vein of both lower extremities ([facility]) CKD (chronic kidney disease) Congenital heart disease COPD (chronic obstructive pulmonary disease) ([facility]) History of DVT (deep vein thrombosis) Diastolic dysfunction Difficult intravenous access Dyslipidemia Leg edema Elevated PSA Esophageal reflux Essential hypertension Hematuria, gross Hyperlipidemia Hypokalemia Low back pain BMI 45.0-49.9, adult ([facility]) Obstructive sleep apnea syndrome Other diseases of pharynx, not elsewhere classified(478.29) Parkinson's disease ([facility]) History of pulmonary embolus (PE) Recurrent major depression in partial remission ([facility]) SOB (shortness of breath) Subarachnoid bleed ([facility]) Tracheal stenosis Tremor Type 2 diabetes mellitus without complication ([facility]) Urge incontinence of urine Urinary tract infection without hematuria Volume overload Syncope and collapse 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 ([facility]) Chronic heart failure with preserved ejection fraction ([facility]) Anxiety state Cocaine dependence in remission ([facility]) Disorder of refraction and accommodation Gout History of tracheostomy Hypersomnia with sleep apnea Major depressive disorder, recurrent, moderate ([facility]) Morbid obesity ([facility]) Nondependent cannabis abuse in remission Presbyopia Cellulitis Abdominal pain Acute encephalopathy Acute renal failure (ARF) ([facility]) Altered awareness, transient Altered mental status Bilateral lower extremity edema Bilateral primary osteoarthritis of knee Choledocholithiasis Cholelithiases Chronic anticoagulation Chronic inflammatory demyelinating polyneuritis ([facility]) Degeneration of intervertebral disc of lumbar region Depression Diabetic mononeuropathy associated with diabetes mellitus due to underlying condition ([facility]) Diabetic neuropathy ([facility]) DVT (deep venous thrombosis) ([facility]) Dysphagia Encounter for chronic pain management Equinus contracture of right ankle History of hematemesis History of stroke Irritable bowel syndrome Lumbar facet arthropathy Lumbar radiculopathy Memory loss Multiple falls Muscle cramps Need for immunization against influenza Pulmonary embolus with infarction ([facility]) Renal disease S/P deep brain stimulator placement DJD (degenerative joint disease) Staring episodes Stroke risk Tracheostomy in place ([facility]) Type 2 diabetes mellitus with hyperglycemia ([facility]) Type II or unspecified type diabetes mellitus with renal manifestations, not stated as uncontrolled(250.40) Weakness Fall Diabetes mellitus ([facility]) Acute on chronic diastolic heart failure ([facility]) Other chest pain Past Medical History: Past Medical History: Diagnosis Date CHF (congestive heart failure) ([facility]) (more content not included)... Normal [facility] Labon 09-20-2024 Lab [id number] Joanie Pierre 1960 M Date Provider Department Center 09/20/2024 [id number]-[facility]PD LAB RESOURCE [facility] Family History Problem Relation Age of Onset Coronary artery disease Mother Coronary artery disease Father Family Status - Relation Status Age at Mother Father Normal [facility] MRSA/MSSA DNA NASALon 2023 MRSA DNA Positive Abnormal Negative [facility] Comment on above: Order Comment: Testi ng [...] preclude nasal colonization. Performed By: #### L [id number] ####[facility] ([facility])[address] [place] [address] MSSA DNA Negative Normal Negative [facility] Comment on above: Order Comment: Testi ng [...] preclude nasal colonization. Performed By: #### L [id number] ####[facility] ([facility])[address] [place] [address] PROTIME-INRon 09-20-2024 INR IN PPP BY COAGULATION ASSAY 1.22 High 0.90-1.10 [facility] Comment on above: Result Comment: ACCC P [...] 1995;108:[id number]-246S. Performed By: #### L [id number] #### [facility] ([facility]) [address] [place] [address] PROTHROMBIN TIME (PT) IN PPP BY COAGULATION ASSAY 15.4 Seconds High 12.3-14.8 [facility] Comment on above: Performed By: #### L [id number] #### [facility] ([facility]) [address] [place] [address] 36on 09-09-2024 36 Regarding stress emili t result from 08/05/2024: MD Jodi Devlin MA Please advise patient that his stress test did not show evidence of ischemia and it showed normal heart function. Continue current management. LM on VM. [facility] 36on 08-24-2024 36 Pt infomred sleep study order sent [facility] 36 Regarding stress emili t [...] CLARKE for patient to return my call. [facility] 36on 07-29-2024 36 Regarding labs [...] med changes and other instructions per Dr. Gomez. He does not see pulmonary so I will send referral to Dr. Beatty. New RX's sent to his pharmacy. He verbalized understanding. ---Dr. Gomez- I was filling out referral paper to pulmonology and wasn't sure which diagnosis to use. I don't see documentation of SOB or SIMMONS. Please advise. Thanks. [facility] Telephoneon 07-29-2024 Telephone [id number] Joanie Pierre 1960 M Date Provider Department Center 07/29/2024 928-JODI PHILLIPS Family History Problem Relation Age of Onset Coronary artery disease Mother Coronary artery disease Father Family Status - Relation Status Age at Mother Father [facility] Office Visiton 07-26-2024 Follow-up visit [id number] Joanie Pierre 1960 M Date Provider Department Center 07/26/2024 [id number]-HFMYQXLEN GOMEZ Family History Problem Relation Age of Onset Coronary artery disease Mother Coronary artery disease Father Family Status - Relation Status Age at Mother Father Level of Service:36977 [place] OFFICE/OUTPATIENT ESTABLISHED MOD MDM 30 MIN Reason for Visit and Comments: Congestive Heart Failure [127] Chest Pain [] Leg Swelling [] - Hasn't been able to get his regular shoes on lately Palpitations [] - Sometimes Dizziness [] - Says BP at home during the evening sometimes falls to 80/40 Normal [facility] Office Visiton 07-13-2024 Follow-up visit [id number] Joanie Pierre 1960 M Date Provider Department Center 07/13/2024 Sami-DIOGENES RODRIGUEZ [facility] Family History Problem Relation Age of Onset Coronary artery disease Mother Coronary artery disease Father Family Status - Relation Status Age at Mother Father Level of Service:42815 [place] OFFICE/OUTPATIENT ESTABLISHED LOW MDM 20 MIN Normal [facility] [facility] Office Visiton 06-02-2024 Follow-up visit [id number] Joanie Pierre 1960 Date Provider Department Center 06/02/2024 LAURA RIVAS MP ORTHO MPORTHO Family History Problem Relation Age of Onset Coronary artery disease Mother Coronary artery disease Father Family Status - Relation Status Age at Mother Father Level of Service:53644 [place] OFFICE/OUTPATIENT NEW LOW MDM 30 MINUTES Reason for Visit and Comments: Pain [136] Normal [facility] URN MACROSCOPIC NURon 2023 BILIRUBIN ALE Negative Normal NEG [facility] Comment on above: Performed By: #### N UM #### [facility] ([id number]) [address] [place] [address] 74750 BLOOD/HGB ALE Negative Normal NEG [facility] Comment on above: Performed By: #### N UM #### [facility] ([id number]) [address] [place] [address] 14313 GLUCOSE ALE >=1000 Abnormal NEG [facility] Comment on above: Performed By: #### N UM #### [facility] ([id number]) [address] [place] [address] 57126 KETONES ALE Negative Normal NEG [facility] Comment on above: Performed By: #### N UM #### [facility] ([id number]) [address] [place] [address] 26017 LEUKOCYTE ESTERASE ALE Negative Normal NEG [facility] Comment on above: Performed By: #### N UM #### [facility] ([id number]) [address] [place] [address] 58367 NITRITE ALE Negative Normal NEG [facility] Comment on above: Performed By: #### N UM #### [facility] ([id number]) [address] [place] [address] 25718 PH ALE 5.0 Normal 5.0-8.5 [facility] Comment on above: Performed By: #### N UM #### [facility] ([id number]) [address] [place] [address] 86024 PROTEIN ALE Negative Normal NEG [facility] Comment on above: Performed By: #### N UM #### [facility] ([id number]) [address] [place] [address] 23907 SPECIFIC GRAVITY ALE 1.010 Normal 1.003-1.035 [facility] Comment on above: Performed By: #### N UM #### [facility] ([id number]) [address] [place] [address] 50711 UROBILINOGEN ALE 0.2 eu/dL Normal <1.1 [facility] Comment on above: Performed By: #### N UM #### [facility] ([id number]) [address] [place] [address] 26220 Glucose,Whole Bloodon 2023 Glucose [Mass/Vol] 203 mg/dL High 75-110 [facility] Glucose [Mass/Vol] 206 mg/dL High 75-110 [facility] Glucose [Mass/Vol] 167 mg/dL High 75-110 [facility] Glucose [Mass/Vol] 137 mg/dL High 75-110 [facility] POC Glucose Fingerstickon Glucose [Mass/Vol] 203 mg/dL High 75 - 110 mg/dL [facility] Interpretation and review of laboratory results Abnormal [facility] Glucose [Mass/Vol] 206 mg/dL High 75 - 110 mg/dL [facility] Interpretation and review of laboratory results Abnormal [facility] Glucose [Mass/Vol] 167 mg/dL High 75 - 110 mg/dL [facility] Interpretation and review of laboratory results Abnormal [facility] Glucose [Mass/Vol] 137 mg/dL High 75 - 110 mg/dL [facility] Interpretation and review of laboratory results Abnormal [facility] PTon 12-08-2023 INR Coag (PPP) [Relative time] 3.3 {INR} Normal [facility] Comment on above: Result Comment: Therapeutic Range: Moderate Anticoagulant Intensity: INR = 2.0-3.0 High Anticoagulant Intensity: INR = 2.5-3.5 Performed By: #### P T #### [employer] [address] [place], [place] [id number] Compliance Tester: Jasbir Montalvo MD PT Coag (PPP) [Time] 32.3 s High 11.7-14.9 [facility] Comment on above: Performed By: #### P T #### [employer] [address] [place], [place] [id number] Compliance Tester: Jasbir Montalvo MD Protime-INRon 12-08-2023 INR Coag (PPP) [Relative time] 3.3 {INR} [facility] Comment on above: Therapeutic Range: Moderate Anticoagulant Intensity: INR = 2.0-3.0 High Anticoagulant Intensity: INR = 2.5-3.5 Interpretation and review of laboratory results Abnormal [facility] PT Coag (PPP) [Time] 32.3 s High [facility] Glucose,Whole Bloodon 2023 Glucose [Mass/Vol] 193 mg/dL High 75-110 [facility] Glucose [Mass/Vol] 154 mg/dL High 75-110 [facility] Glucose [Mass/Vol] 145 mg/dL High 75-110 [facility] Glucose [Mass/Vol] 132 mg/dL High 75-110 [facility] Hemoglobin and Hematocriton 12-07-2023 Hematocrit (Bld) [Volume fraction] 44.1 % 40.7 - 50.3 % [facility] Hemoglobin (Bld) [Mass/Vol] 14.0 g/dL 13.0 - 17.0 g/dL [facility] Hgb/Hcton 12-07-2023 Hematocrit (Bld) [Volume fraction] 44.1 % Normal 40.7-50.3 [facility] Comment on above: Performed By: #### P HO, CDP, RA, PT, SED, BMPX, FREDA, MG, LD, CRP, FEBC, B12FOL, PTT, C4, CCPAB, FERI, IOCAL, CORTI, CK, C3, REJEC #### [employer] [address] [place] [phone] Compliance Tester: Jasbir Montalvo MD Hemoglobin (Bld) [Mass/Vol] 14.0 g/dL Normal 13.0-17.0 [facility] Comment on above: Performed By: #### P HO, CDP, RA, PT, SED, BMPX, FREDA, MG, LD, CRP, FEBC, B12FOL, PTT, C4, CCPAB, FERI, IOCAL, CORTI, CK, C3, REJEC #### [facility] [address] [place] [address] Compliance Tester: Jasbir Montalvo MD No Panel Informationon 12-06 [facility] POC Glucose Fingerstickon Glucose [Mass/Vol] 193 mg/dL High 75 - 110 mg/dL [facility] Interpretation and review of laboratory results Abnormal [facility] Glucose [Mass/Vol] 154 mg/dL High 75 - 110 mg/dL [facility] Interpretation and review of laboratory results Abnormal [facility] Glucose [Mass/Vol] 145 mg/dL High 75 - 110 mg/dL [facility] Interpretation and review of laboratory results Abnormal [facility] Glucose [Mass/Vol] 132 mg/dL High 75 - 110 mg/dL [facility] Interpretation and review of laboratory results Abnormal [facility] PTon 12-07-2023 INR Coag (PPP) [Relative time] 3.2 {INR} Normal [facility] Comment on above: Result Comment: Therapeutic Range: Moderate Anticoagulant Intensity: INR = 2.0-3.0 High Anticoagulant Intensity: INR = 2.5-3.5 Performed By: #### P HO, CDP, RA, PT, SED, BMPX, FREDA, MG, LD, CRP, FEBC, B12FOL, PTT, C4, CCPAB, FERI, IOCAL, CORTI, CK, C3, REJEC #### [facility] [address] [place] [address] Compliance Tester: Jasbir Montalvo MD PT Coag (PPP) [Time] 32.1 s High 11.7-14.9 [facility] Comment on above: Performed By: #### P HO, CDP, RA, PT, SED, BMPX, FREDA, MG, LD, CRP, FEBC, B12FOL, PTT, C4, CCPAB, FERI, IOCAL, CORTI, CK, C3, REJEC #### [facility] [address] [place] [address] Compliance Tester: Jasbir Montalvo MD Platelet Counton 12-07-2023 Platelets (Bld) [#/Vol] 252 10*3/uL Normal 138-453 [facility] Comment on above: Performed By: #### P HO, CDP, RA, PT, SED, BMPX, FREDA, MG, LD, CRP, FEBC, B12FOL, PTT, C4, CCPAB, FERI, IOCAL, CORTI, CK, C3, REJEC #### [facility] [place] [address] Compliance Tester: Jasbir Montalvo MD Platelets (Bld) [#/Vol] 252 10*3/uL [facility] [employer] Protime-INRon 12-07-2023 INR Coag (PPP) [Relative time] 3.2 {INR} [facility] Comment on above: Therapeutic Range: Moderate Anticoagulant Intensity: INR = 2.0-3.0 High Anticoagulant Intensity: INR = 2.5-3.5 Interpretation and review of laboratory results Abnormal [facility] [email or web address] PT Coag (PPP) [Time] 32.1 s High [facility] Glucose,Whole Bloodon 2023 Glucose [Mass/Vol] 155 mg/dL High 75-110 [facility] Glucose [Mass/Vol] 190 mg/dL High 75-110 [facility] Glucose [Mass/Vol] 176 mg/dL High 75-110 [facility] Glucose [Mass/Vol] 119 mg/dL High 75-110 [facility] POC Glucose Fingerstickon Glucose [Mass/Vol] 155 mg/dL High 75 - 110 mg/dL [facility] Interpretation and review of laboratory results Abnormal [facility] Glucose [Mass/Vol] 190 mg/dL High 75 - 110 mg/dL [facility] Interpretation and review of laboratory results Abnormal [facility] Glucose [Mass/Vol] 176 mg/dL High 75 - 110 mg/dL [facility] Interpretation and review of laboratory results Abnormal [facility] Glucose [Mass/Vol] 119 mg/dL High 75 - 110 mg/dL [facility] Interpretation and review of laboratory results Abnormal [facility] [employer] PTon 12-06-2023 INR Coag (PPP) [Relative time] 2.7 {INR} Normal [facility] Comment on above: Result Comment: Therapeutic Range: Moderate Anticoagulant Intensity: INR = 2.0-3.0 High Anticoagulant Intensity: INR = 2.5-3.5 Performed By: #### P HO, CDP, RA, PT, SED, BMPX, FREDA, MG, LD, CRP, FEBC, B12FOL, PTT, C4, CCPAB, FERI, IOCAL, CORTI, CK, C3, REJEC #### [employer] [address] [place] [address] [id number] Compliance Tester: Jasbir Montalvo MD PT Coag (PPP) [Time] 28.0 s High 11.7-14.9 [facility] Comment on above: Performed By: #### P HO, CDP, RA, PT, SED, BMPX, FREDA, MG, LD, CRP, FEBC, B12FOL, PTT, C4, CCPAB, FERI, IOCAL, CORTI, CK, C3, REJEC #### [employer] [address] [place] [phone] Compliance Tester: Jasbir Montalvo MD Protime-INRon 12-06-2023 INR Coag (PPP) [Relative time] 2.7 {INR} [facility] Comment on above: Therapeutic Range: Moderate Anticoagulant Intensity: INR = 2.0-3.0 High Anticoagulant Intensity: INR = 2.5-3.5 Interpretation and review of laboratory results Abnormal [facility] PT Coag (PPP) [Time] 28.0 s High [facility] XR FOOT RIGHT (2 VIEWS)on XR [...] Christian Baldwin MD 12/06/23 Final result Normal [facility] XR Foot - right 2 Viewson 1. No fracture or dislocation. 2. Mild osteoarthritic changes. 3. Diffuse soft tissue swelling. [facility] EXAMINATION: TWO XRAY VIEWS [...] diffuse soft tissue swelling of the foot. [facility] Christian Baldwin MD - [...] changes. 3. Diffuse soft tissue swelling. [facility] XR Foot - right 2 ViewsOrder ed By: Christian Baldwin on 12-06-2023 [facility] Work Phone: Glucose,Whole Bloodon 2023 Glucose [Mass/Vol] 160 mg/dL High 75-110 [facility] Glucose [Mass/Vol] 137 mg/dL High 75-110 [facility] Glucose [Mass/Vol] 189 mg/dL High 75-110 [facility] Glucose [Mass/Vol] 131 mg/dL High 75-110 [facility] Hemoglobin and Hematocriton 12-05-2023 Hematocrit (Bld) [Volume fraction] 42.9 % 40.7 - 50.3 % [facility] Hemoglobin (Bld) [Mass/Vol] 13.1 g/dL 13.0 - 17.0 g/dL [facility] Hgb/Hcton 12-05-2023 Hematocrit (Bld) [Volume fraction] 42.9 % Normal 40.7-50.3 [facility] Comment on above: Performed By: #### P HO, CDP, RA, PT, SED, BMPX, FREDA, MG, LD, CRP, FEBC, B12FOL, PTT, C4, CCPAB, FERI, IOCAL, CORTI, CK, C3, REJEC #### [facility] [address] [place] [phone] Compliance Tester: Jasbir Montalvo MD Hemoglobin (Bld) [Mass/Vol] 13.1 g/dL Normal 13.0-17.0 [facility] Comment on above: Performed By: #### P HO, CDP, RA, PT, SED, BMPX, FREDA, MG, LD, CRP, FEBC, B12FOL, PTT, C4, CCPAB, FERI, IOCAL, CORTI, CK, C3, REJEC #### [facility] [address] [place] [phone] Compliance Tester: Jasbir Montalvo MD No Panel Informationon 12-04 [facility] POC Glucose Fingerstickon Glucose [Mass/Vol] 160 mg/dL High 75 - 110 mg/dL [facility] Interpretation and review of laboratory results Abnormal [facility] Glucose [Mass/Vol] 137 mg/dL High 75 - 110 mg/dL [facility] Interpretation and review of laboratory results Abnormal [facility] Glucose [Mass/Vol] 189 mg/dL High 75 - 110 mg/dL [facility] Interpretation and review of laboratory results Abnormal [facility] Glucose [Mass/Vol] 131 mg/dL High 75 - 110 mg/dL [facility] Interpretation and review of laboratory results Abnormal [facility] PTon 12-05-2023 INR Coag (PPP) [Relative time] 2.6 {INR} Normal [facility] Comment on above: Result Comment: Therapeutic Range: Moderate Anticoagulant Intensity: INR = 2.0-3.0 High Anticoagulant Intensity: INR = 2.5-3.5 Performed By: #### P HO, CDP, RA, PT, SED, BMPX, FREDA, MG, LD, CRP, FEBC, B12FOL, PTT, C4, CCPAB, FERI, IOCAL, CORTI, CK, C3, REJEC #### [facility] [address] [place] [phone] Compliance Tester: Jasbir Montalvo MD PT Coag (PPP) [Time] 26.8 s High 11.7-14.9 [facility] Comment on above: Performed By: #### P HO, CDP, RA, PT, SED, BMPX, FREDA, MG, LD, CRP, FEBC, B12FOL, PTT, C4, CCPAB, FERI, IOCAL, CORTI, CK, C3, REJEC #### [facility] [address] [place] [phone] Compliance Tester: Jasbir Montalvo MD Platelet Counton 12-05-2023 Platelets (Bld) [#/Vol] 194 10*3/uL Normal 138-453 [facility] Comment on above: Performed By: #### P HO, CDP, RA, PT, SED, BMPX, FREDA, MG, LD, CRP, FEBC, B12FOL, PTT, C4, CCPAB, FERI, IOCAL, CORTI, CK, C3, REJEC #### [facility] [address] [place] [phone] Compliance Tester: Jasbir Montalvo MD Platelets (Bld) [#/Vol] 194 10*3/uL [facility] Protime-INRon 12-05-2023 INR Coag (PPP) [Relative time] 2.6 {INR} [facility] Comment on above: Therapeutic Range: Moderate Anticoagulant Intensity: INR = 2.0-3.0 High Anticoagulant Intensity: INR = 2.5-3.5 Interpretation and review of laboratory results Abnormal [facility] [employer] [facility] PT Coag (PPP) [Time] 26.8 s High [facility] XR Foot - right 2 Viewson Radiology Study observation (narrative) [facility] Glucose,Whole Bloodon 2023 Glucose [Mass/Vol] 181 mg/dL High 75-110 [facility] Glucose [Mass/Vol] 194 mg/dL High 75-110 [facility] Glucose [Mass/Vol] 184 mg/dL High 75-110 [facility] Glucose [Mass/Vol] 120 mg/dL High 75-110 [facility] Glucose [Mass/Vol] 161 mg/dL High 75-110 [facility] POC Glucose Fingerstickon Glucose [Mass/Vol] 181 mg/dL High 75 - 110 mg/dL [facility] Interpretation and review of laboratory results Abnormal [facility] Glucose [Mass/Vol] 194 mg/dL High 75 - 110 mg/dL [facility]ITALClass [facility] Interpretation and review of laboratory results Abnormal [facility] Glucose [Mass/Vol] 184 mg/dL High 75 - 110 mg/dL [facility] Interpretation and review of laboratory results Abnormal [facility] Glucose [Mass/Vol] 120 mg/dL High 75 - 110 mg/dL [facility] Interpretation and review of laboratory results Abnormal [facility] Glucose [Mass/Vol] 161 mg/dL High 75 - 110 mg/dL [facility] Interpretation and review of laboratory results Abnormal [facility]NoL[facility]No[facility] PTon 12-04-2023 INR Coag (PPP) [Relative time] 3.0 {INR} Normal [facility] Comment on above: Result Comment: Therapeutic Range: Moderate Anticoagulant Intensity: INR = 2.0-3.0 High Anticoagulant Intensity: INR = 2.5-3.5 Performed By: #### P HO, CDP, RA, PT, SED, BMPX, FREDA, MG, LD, CRP, FEBC, B12FOL, PTT, C4, CCPAB, FERI, IOCAL, CORTI, CK, C3, REJEC #### [employer] [facility] [place], [place] [id number] Compliance Tester: Jasbir Montalvo MD PT Coag (PPP) [Time] 30.5 s High 11.7-14.9 [facility] Comment on above: Performed By: #### P HO, CDP, RA, PT, SED, BMPX, FREDA, MG, LD, CRP, FEBC, B12FOL, PTT, C4, CCPAB, FERI, IOCAL, CORTI, CK, C3, REJEC #### [employer] [facility] [place] [address] Compliance Tester: Jasbir Montalvo MD Protime-INRon 12-04-2023 INR Coag (PPP) [Relative time] 3.0 {INR} [facility] Comment on above: Therapeutic Range: Moderate Anticoagulant Intensity: INR = 2.0-3.0 High Anticoagulant Intensity: INR = 2.5-3.5 Interpretation and review of laboratory results Abnormal [employer] PT Coag (PPP) [Time] 30.5 s High [facility] [employer] [facility] [employer] EKG 12 LeadOrdered By: Cesar Jean on 12-03-2023 Atrial Rate 67 BPM [employer] Work Phone: P [place] 78 degrees [employer] Work Phone: P-R Interval 148 ms [employer] Work Phone: Q-T Interval 404 ms [employer] Work Phone: QRS Duration 70 ms [employer] Work Phone: QTc Calculation (Bazett) 426 ms [employer] Work Phone: R [place] -47 degrees [employer] Work Phone: T [place] 100 degrees [facility] Work Phone: Ventricular Rate 67 BPM [facility] [employer] Work Phone: [facility] Work Phone: EKG 12 Leadon 12-03-2023 Normal sinus rhythm Left axis deviation Inferior infarct , 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 , age undetermined Abnormal ECG No previous ECGs available [facility] MD - 12/03/2023 Normal sinus rhythm Left axis deviation Inferior infarct , 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 , age undetermined Abnormal ECG No previous ECGs available [facility] Atrial Rate 66 BPM [facility] P [place] 111 degrees [facility] P-R Interval 128 ms [facility] Q-T Interval 440 ms [facility] QRS Duration 94 ms [facility] QTc Calculation (Bazett) 461 ms [facility] R [place] -48 degrees [facility] T [place] 12 degrees [facility] Ventricular Rate 66 BPM [facility] [employer] Normal sinus rhythm Left anterior fascicular block Anterolateral infarct (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) Abnormal ECG When compared with ECG of 01-DEC-2023 15:42, QRS duration has increased ST no longer depressed in Anterolateral leads [facility] Lori Yoder MD - 12/03/2023 Normal sinus rhythm Left anterior fascicular block Anterolateral infarct (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) Abnormal ECG When compared with ECG of 01-DEC-2023 15:42, QRS duration has increased ST no longer depressed in Anterolateral leads [facility] Glucose,Whole Bloodon 2023 Glucose [Mass/Vol] 232 mg/dL High 75-110 [facility] Glucose [Mass/Vol] 174 mg/dL High 75-110 [facility] Glucose [Mass/Vol] 176 mg/dL High 75-110 [facility] Glucose [Mass/Vol] 83 mg/dL Normal 75-110 [facility] POC Glucose Fingerstickon Glucose [Mass/Vol] 232 mg/dL High 75 - 110 mg/dL [facility] Interpretation and review of laboratory results Abnormal [facility] Glucose [Mass/Vol] 174 mg/dL High 75 - 110 mg/dL [facility] Interpretation and review of laboratory results Abnormal [facility] Glucose [Mass/Vol] 176 mg/dL High 75 - 110 mg/dL [facility] Interpretation and review of laboratory results Abnormal [facility] Glucose [Mass/Vol] 83 mg/dL 75 - 110 mg/dL [facility] PTon 12-03-2023 INR Coag (PPP) [Relative time] 3.3 {INR} Normal [facility] Comment on above: Result Comment: Therapeutic Range: Moderate Anticoagulant Intensity: INR = 2.0-3.0 High Anticoagulant Intensity: INR = 2.5-3.5 Performed By: #### P HO, CDP, RA, PT, SED, BMPX, FREDA, MG, LD, CRP, FEBC, B12FOL, PTT, C4, CCPAB, FERI, IOCAL, CORTI, CK, C3, REJEC #### [employer] [address] [place] [phone] Compliance Tester: Jasbir Montalvo MD PT Coag (PPP) [Time] 32.2 s High 11.7-14.9 [facility] Comment on above: Performed By: #### P HO, CDP, RA, PT, SED, BMPX, FREDA, MG, LD, CRP, FEBC, B12FOL, PTT, C4, CCPAB, FERI, IOCAL, CORTI, CK, C3, REJEC #### [facility] [address] [place] [phone] Compliance Tester: Jasbir Montalvo MD Protime-INRon 12-03-2023 INR Coag (PPP) [Relative time] 3.3 {INR} [facility] Comment on above: Therapeutic Range: Moderate Anticoagulant Intensity: INR = 2.0-3.0 High Anticoagulant Intensity: INR = 2.5-3.5 Interpretation and review of laboratory results Abnormal [facility] PT Coag (PPP) [Time] 32.2 s High [facility] Basic Metab w/rfx MGon 12-02 Anion gap [Moles/Vol] 9 mmol/L Normal 9-17 [facility] Comment on above: Performed By: #### P HO, CDP, RA, PT, SED, BMPX, FREDA, MG, LD, CRP, FEBC, B12FOL, PTT, C4, CCPAB, FERI, IOCAL, CORTI, CK, C3, REJEC #### [address] [address] Compliance Tester: Jasbir Montalvo MD Calcium [Mass/Vol] 8.8 mg/dL Normal 8.6-10.4 [facility] Comment on above: Performed By: #### P HO, CDP, RA, PT, SED, BMPX, FREDA, MG, LD, CRP, FEBC, B12FOL, PTT, C4, CCPAB, FERI, IOCAL, CORTI, CK, C3, REJEC #### [address] [address] Compliance Tester: Jasbir Montalvo MD Chloride [Moles/Vol] 109 mmol/L High 98-107 [facility] Comment on above: Performed By: #### P HO, CDP, RA, PT, SED, BMPX, FREDA, MG, LD, CRP, FEBC, B12FOL, PTT, C4, CCPAB, FERI, IOCAL, CORTI, CK, C3, REJEC #### [place] [id number] Compliance Tester: aJsbir Montalvo MD CO2 [Moles/Vol] 22 mmol/L Normal 20-31 [facility] Comment on above: Performed By: #### P HO, CDP, RA, PT, SED, BMPX, FREDA, MG, LD, CRP, FEBC, B12FOL, PTT, C4, CCPAB, FERI, IOCAL, CORTI, CK, C3, REJEC #### [address] [address] Compliance Tester: Jasbir Montalvo MD Creatinine [Mass/Vol] 1.5 mg/dL High 0.7-1.2 [facility] Comment on above: Performed By: #### P HO, CDP, RA, PT, SED, BMPX, FREDA, MG, LD, CRP, FEBC, B12FOL, PTT, C4, CCPAB, FERI, IOCAL, CORTI, CK, C3, REJEC #### [address] [address] Compliance Tester: Jasbir Montalvo MD GFR/1.73 sq M.predicted among non-blacks MDRD (S/P/Bld) [Vol rate/Area] 52 mL/min/{1.73_m2} Low >60 [facility] Comment on above: Result [...] FERI, IOCAL, CORTI, CK, C3, REJEC #### [address] [id number] Compliance Tester: Jasbir Montalvo MD Glucose [Mass/Vol] 165 mg/dL High 70-99 [facility] Comment on above: Performed By: #### P HO, CDP, RA, PT, SED, BMPX, FREDA, MG, LD, CRP, FEBC, B12FOL, PTT, C4, CCPAB, FERI, IOCAL, CORTI, CK, C3, REJEC #### [address] [address] Compliance Tester: Jasbir Montalvo MD Potassium [Moles/Vol] 3.7 mmol/L Normal 3.7-5.3 [facility] Comment on above: Performed By: #### P HO, CDP, RA, PT, SED, BMPX, FREDA, MG, LD, CRP, FEBC, B12FOL, PTT, C4, CCPAB, FERI, IOCAL, CORTI, CK, C3, REJEC #### [address] [address] Compliance Tester: Jasbir Montalvo MD Sodium [Moles/Vol] 140 mmol/L Normal 135-144 [facility] Comment on above: Performed By: #### P HO, CDP, RA, PT, SED, BMPX, FREDA, MG, LD, CRP, FEBC, B12FOL, PTT, C4, CCPAB, FERI, IOCAL, CORTI, CK, C3, REJEC #### [address] [address] Compliance Tester: Jasbir Montalvo MD Urea nitrogen [Mass/Vol] 36 mg/dL High 8-23 [facility] Comment on above: Performed By: #### P HO, CDP, RA, PT, SED, BMPX, FREDA, MG, LD, CRP, FEBC, B12FOL, PTT, C4, CCPAB, FERI, IOCAL, CORTI, CK, C3, REJEC #### [address] [address] Compliance Tester: Jasbir Montalvo MD Basic Metabolic Panel w/ Ref sarah to MGon 12-02-2023 Anion gap [Moles/Vol] 9 mmol/L 9 - 17 mmol/L [facility] Calcium [Mass/Vol] 8.8 mg/dL 8.6 - 10. 4 mg/dL [facility] Chloride [Moles/Vol] 109 mmol/L High 98 - 10 7 mmol/L [facility] CO2 [Moles/Vol] 22 mmol/L 20 - 31 mmol/L [facility] Creatinine [Mass/Vol] 1.5 mg/dL High 0.7 - 1.2 mg/dL [facility] GFR/1.73 sq M.predicted MDRD (S/P/Bld) [Vol rate/Area] 52 mL/min/{1.73_m2} Low - PINF [facility] Comment on above: These results [...] mg/dL High 70 - 99 mg/dL [facility] Interpretation and review of laboratory results Abnormal [facility] Potassium [Moles/Vol] 3.7 mmol/L 3.7 - 5.3 mmol/L [facility] Sodium [Moles/Vol] 140 mmol/L 135 - 144 mmol/L [facility] Urea nitrogen [Mass/Vol] 36 mg/dL High 8 - 23 mg/dL [facility] CBC with Auto Differentialon 12-02-2023 Basophils (Bld) [#/Vol] 0.08 10*3/uL [facility] Basophils/100 WBC (Bld) 1 % 0 - 2 % [facility] Eosinophils (Bld) [#/Vol] 0.43 10*3/uL [facility] Eosinophils/100 WBC (Bld) 4 % 1 - 4 % [facility] Erythrocyte distribution width (RBC) [Ratio] 14.2 % 11.8 - 14.4 % [facility] Hematocrit (Bld) [Volume fraction] 46.4 % 40.7 - 50.3 % [facility] Hemoglobin (Bld) [Mass/Vol] 14.4 g/dL 13.0 - 17.0 g/dL [facility] Immature granulocytes (Bld) [#/Vol] 0.03 10*3/uL [facility] Immature granulocytes/100 WBC (Bld) 0 % 0 [facility] Lymphocytes/100 WBC (Bld) 29 % 24 - 43 % [facility] Lymphocytes/100 WBC (Bld) 3.23 % [facility] MCH (RBC) [Entitic mass] 31.2 pg 25.2 - 33.5 pg [facility] MCHC (RBC) [Mass/Vol] 31.0 g/dL 28.4 - 34.8 g/dL [facility] MCV (RBC) [Entitic vol] 100.7 fL 82.6 - 102.9 fL [facility] Monocytes/100 WBC (Bld) 8 % 3 - 12 % [facility] Monocytes/100 WBC (Bld) 0.93 % [facility] Neutrophils/100 WBC (Bld) 58 % 36 - 65 % [facility] Nucleated RBC/100 WBC (Bld) [Ratio] 0.0 % 0.0 per 100 WBC [facility] Platelet mean volume (Bld) [Entitic vol] 10.3 fL 8.1 - 13.5 fL [facility] Platelets (Bld) [#/Vol] 230 10*3/uL [facility] RBC (Bld) [#/Vol] 4.61 10*6/uL 4.21 - 5.7 7 m/uL [facility] Segmented neutrophils/100 WBC (Bld) 6.39 % [facility] WBC other (Bld) [#/Vol] 11.1 [facility] CBC with Diffon 12-02-2023 Abs. Basophil 0.08 k/uL Normal 0.00-0.20 [facility] Comment on above: Performed By: #### P HO, CDP, RA, PT, SED, BMPX, FREDA, MG, LD, CRP, FEBC, B12FOL, PTT, C4, CCPAB, FERI, IOCAL, CORTI, CK, C3, REJEC #### [address] [address] Compliance Tester: Jasbir Montalvo MD Abs.Imm.Granulocyte 0.03 k/uL Normal 0.00-0.30 [facility] Comment on above: Performed By: #### P HO, CDP, RA, PT, SED, BMPX, FREDA, MG, LD, CRP, FEBC, B12FOL, PTT, C4, CCPAB, FERI, IOCAL, CORTI, CK, C3, REJEC #### [address] [id number] Compliance Tester: Jasbir Montalvo MD Abs.Neutrophil (Seg) 6.39 k/uL Normal 1.50-8.10 [facility] Comment on above: Performed By: #### P HO, CDP, RA, PT, SED, BMPX, FREDA, MG, LD, CRP, FEBC, B12FOL, PTT, C4, CCPAB, FERI, IOCAL, CORTI, CK, C3, REJEC #### [address] [address] Compliance Tester: Jasbir Montalvo MD Basophils/100 WBC (Bld) 1 % Normal 0-2 [facility] Comment on above: Performed By: #### P HO, CDP, RA, PT, SED, BMPX, FREDA, MG, LD, CRP, FEBC, B12FOL, PTT, C4, CCPAB, FERI, IOCAL, CORTI, CK, C3, REJEC #### [address] [address] Compliance Tester: Jasbir Montalvo MD Eosinophils (Bld) [#/Vol] 0.43 10*3/uL Normal 0.00-0.44 [facility] Comment on above: Performed By: #### P HO, CDP, RA, PT, SED, BMPX, FREDA, MG, LD, CRP, FEBC, B12FOL, PTT, C4, CCPAB, FERI, IOCAL, CORTI, CK, C3, REJEC #### [facility] [address] [place] [address] Compliance Tester: Jasbir Montalvo MD Eosinophils/100 WBC (Bld) 4 % Normal 1-4 [facility] Comment on above: Performed By: #### P HO, CDP, RA, PT, SED, BMPX, FREDA, MG, LD, CRP, FEBC, B12FOL, PTT, C4, CCPAB, FERI, IOCAL, CORTI, CK, C3, REJEC #### [address] [id number] Compliance Tester: Jasbir Montalvo MD Erythrocyte distribution width (RBC) [Ratio] 14.2 % Normal 11.8-14.4 [facility] Comment on above: Performed By: #### P HO, CDP, RA, PT, SED, BMPX, FREDA, MG, LD, CRP, FEBC, B12FOL, PTT, C4, CCPAB, FERI, IOCAL, CORTI, CK, C3, REJEC #### [address] [address] Compliance Tester: Jasbir Montalvo MD Hematocrit (Bld) [Volume fraction] 46.4 % Normal 40.7-50.3 [facility] Comment on above: Performed By: #### P HO, CDP, RA, PT, SED, BMPX, FREDA, MG, LD, CRP, FEBC, B12FOL, PTT, C4, CCPAB, FERI, IOCAL, CORTI, CK, C3, REJEC #### [facility] [address] [place] [address] Compliance Tester: Jasbir Montalvo MD Hemoglobin (Bld) [Mass/Vol] 14.4 g/dL Normal 13.0-17.0 [facility] Comment on above: Performed By: #### P HO, CDP, RA, PT, SED, BMPX, FREDA, MG, LD, CRP, FEBC, B12FOL, PTT, C4, CCPAB, FERI, IOCAL, CORTI, CK, C3, REJEC #### [address] [address] Compliance Tester: Jasbir Montalvo MD Immature granulocytes/100 WBC (Bld) 0 % Normal 0 [facility] Comment on above: Performed By: #### P HO, CDP, RA, PT, SED, BMPX, FREDA, MG, LD, CRP, FEBC, B12FOL, PTT, C4, CCPAB, FERI, IOCAL, CORTI, CK, C3, REJEC #### [address] [id number] Compliance Tester: Jasbir Montalvo MD Lymphocytes (Bld) [#/Vol] 3.23 10*3/uL Normal 1.10-3.70 [facility] Comment on above: Performed By: #### P HO, CDP, RA, PT, SED, BMPX, FREDA, MG, LD, CRP, FEBC, B12FOL, PTT, C4, CCPAB, FERI, IOCAL, CORTI, CK, C3, REJEC #### [address] [address] Compliance Tester: Jasbir Montalvo MD Lymphocytes/100 WBC (Bld) 29 % Normal 24-43 [facility] Comment on above: Performed By: #### P HO, CDP, RA, PT, SED, BMPX, FREDA, MG, LD, CRP, FEBC, B12FOL, PTT, C4, CCPAB, FERI, IOCAL, CORTI, CK, C3, REJEC #### [address] [id number] Compliance Tester: Jasbir Montalvo MD MCH (RBC) [Entitic mass] 31.2 pg Normal 25.2-33.5 [facility] Comment on above: Performed By: #### P HO, CDP, RA, PT, SED, BMPX, FREDA, MG, LD, CRP, FEBC, B12FOL, PTT, C4, CCPAB, FERI, IOCAL, CORTI, CK, C3, REJEC #### [address] [address] Compliance Tester: Jasbir Montalvo MD MCHC (RBC) [Mass/Vol] 31.0 g/dL Normal 28.4-34.8 [facility] Comment on above: Performed By: #### P HO, CDP, RA, PT, SED, BMPX, FREDA, MG, LD, CRP, FEBC, B12FOL, PTT, C4, CCPAB, FERI, IOCAL, CORTI, CK, C3, REJEC #### [address] [address] Compliance Tester: Jasbir Montalvo MD MCV (RBC) [Entitic vol] 100.7 fL Normal 82.6-102.9 [facility] Comment on above: Performed By: #### P HO, CDP, RA, PT, SED, BMPX, FREDA, MG, LD, CRP, FEBC, B12FOL, PTT, C4, CCPAB, FERI, IOCAL, CORTI, CK, C3, REJEC #### [address] [address] Compliance Tester: Jasbir Montalvo MD Monocytes (Bld) [#/Vol] 0.93 10*3/uL Normal 0.10-1.20 [facility] Comment on above: Performed By: #### P HO, CDP, RA, PT, SED, BMPX, FREDA, MG, LD, CRP, FEBC, B12FOL, PTT, C4, CCPAB, FERI, IOCAL, CORTI, CK, C3, REJEC #### [address] [address] Compliance Tester: Jasbir Montalvo MD Monocytes/100 WBC (Bld) 8 % Normal 3-12 [facility] Comment on above: Performed By: #### P HO, CDP, RA, PT, SED, BMPX, FREDA, MG, LD, CRP, FEBC, B12FOL, PTT, C4, CCPAB, FERI, IOCAL, CORTI, CK, C3, REJEC #### [address] [address] Compliance Tester: Jasbir Montalvo MD Neutrophil (Seg) 58 % Normal 36-65 [facility] Comment on above: Performed By: #### P HO, CDP, RA, PT, SED, BMPX, FREDA, MG, LD, CRP, FEBC, B12FOL, PTT, C4, CCPAB, FERI, IOCAL, CORTI, CK, C3, REJEC #### [address] [id number] Compliance Tester: Jasbir Montalvo MD NRBC Automated 0.0 per 100 WBC Normal 0.0 [facility] Comment on above: Performed By: #### P HO, CDP, RA, PT, SED, BMPX, FREDA, MG, LD, CRP, FEBC, B12FOL, PTT, C4, CCPAB, FERI, IOCAL, CORTI, CK, C3, REJEC #### [address] [id number] Compliance Tester: Jasbir Montalvo MD Platelet mean volume (Bld) [Entitic vol] 10.3 fL Normal 8.1-13.5 [facility] Comment on above: Performed By: #### P HO, CDP, RA, PT, SED, BMPX, FREDA, MG, LD, CRP, FEBC, B12FOL, PTT, C4, CCPAB, FERI, IOCAL, CORTI, CK, C3, REJEC #### [address] [id number] Compliance Tester: Jasbir Montalvo MD Platelets (Bld) [#/Vol] 230 10*3/uL Normal 138-453 [facility] Comment on above: Performed By: #### P HO, CDP, RA, PT, SED, BMPX, FREDA, MG, LD, CRP, FEBC, B12FOL, PTT, C4, CCPAB, FERI, IOCAL, CORTI, CK, C3, REJEC #### [address] [id number] Compliance Tester: Jasbir Montalvo MD RBC (Bld) [#/Vol] 4.61 10*6/uL Normal 4.21-5.77 [facility] Comment on above: Performed By: #### P HO, CDP, RA, PT, SED, BMPX, FREDA, MG, LD, CRP, FEBC, B12FOL, PTT, C4, CCPAB, FERI, IOCAL, CORTI, CK, C3, REJEC #### [address] [id number] Compliance Tester: Jasbir Montalvo MD WBC (Bld) [#/Vol] 11.1 10*3/uL Normal 3.5-11.3 [facility] Comment on above: Performed By: #### P HO, CDP, RA, PT, SED, BMPX, FREDA, MG, LD, CRP, FEBC, B12FOL, PTT, C4, CCPAB, FERI, IOCAL, CORTI, CK, C3, REJEC #### [address] [address] Compliance Tester: Jasbir Montalvo MD EEGon 12-02-2023 Ayo Torres [...] moderate encephalopathy . Ayo Torres MD [facility] EEGOrdered By: Ayo Torres on 12-02-2023 [facility] Work Phone: Glucose,Whole Bloodon 2023 Glucose [Mass/Vol] 179 mg/dL High 75-110 [facility] Glucose [Mass/Vol] 169 mg/dL High 75-110 [facility] Glucose [Mass/Vol] 172 mg/dL High 75-110 [facility] Glucose [Mass/Vol] 117 mg/dL High 75-110 [facility] POC Glucose Fingerstickon Glucose [Mass/Vol] 179 mg/dL High 75 - 110 mg/dL [facility] Interpretation and review of laboratory results Abnormal [facility] Glucose [Mass/Vol] 169 mg/dL High 75 - 110 mg/dL [facility] Interpretation and review of laboratory results Abnormal [facility] Glucose [Mass/Vol] 172 mg/dL High 75 - 110 mg/dL [facility] Interpretation and review of laboratory results Abnormal [facility] Glucose [Mass/Vol] 117 mg/dL High 75 - 110 mg/dL [facility] Interpretation and review of laboratory results Abnormal [facility] PTon 12-02-2023 INR Coag (PPP) [Relative time] 2.8 {INR} Normal [facility] Comment on above: Result Comment: Therapeutic Range: Moderate Anticoagulant Intensity: INR = 2.0-3.0 High Anticoagulant Intensity: INR = 2.5-3.5 Performed By: #### P HO, CDP, RA, PT, SED, BMPX, FREDA, MG, LD, CRP, FEBC, B12FOL, PTT, C4, CCPAB, FERI, IOCAL, CORTI, CK, C3, REJEC #### [facility] [address] [place] [address] Compliance Tester: Jasbir Montalvo MD PT Coag (PPP) [Time] 28.9 s High 11.7-14.9 [facility] Comment on above: Performed By: #### P HO, CDP, RA, PT, SED, BMPX, FREDA, MG, LD, CRP, FEBC, B12FOL, PTT, C4, CCPAB, FERI, IOCAL, CORTI, CK, C3, REJEC #### [employer] [facility] [place] [address] Compliance Tester: Jasbir Montalvo MD Protime-INRon 12-02-2023 INR Coag (PPP) [Relative time] 2.8 {INR} [facility] Comment on above: Therapeutic Range: Moderate Anticoagulant Intensity: INR = 2.0-3.0 High Anticoagulant Intensity: INR = 2.5-3.5 Interpretation and review of laboratory results Abnormal [facility] PT Coag (PPP) [Time] 28.9 s High [facility] Aldolaseon 12-01-2023 Aldolase 6.9 U/L Normal 1.2-7.6 [facility] Comment on above: Result Comment: (NOT E) This specimen is Hemolyzed. This may cause the results to be falsely increased. REFERENCE INTERVAL: Aldolase Access complete set of age- and/or gender-specific reference intervals for this test in the [employer] Laboratory Test Directory (BackTrack). Performed By: [facility] [address] [place] [id number] Sock Mender: Uriah Prasad MD, PhD CLIA Number: [id number] Performed By: #### P HO, CDP, RA, PT, SED, BMPX, FREDA, MG, LD, CRP, FEBC, B12FOL, PTT, C4, CCPAB, FERI, IOCAL, CORTI, CK, C3, REJEC #### [facility] [place] [address] Compliance Tester: Jasbir Montalvo MD Aldolase [Catalytic activity/Vol] 6.9 mU/mL 1.2 - 7.6 U/L [facility] Comment on above: (NOTE) This specimen is Hemolyzed. This may cause the results to be falsely increased. REFERENCE INTERVAL: Aldolase Access complete set of age- and/or gender-specific reference intervals for this test in the [employer] Laboratory Test Directory (BackTrack). Performed By: [facility] [address] [place] [id number] Sock Mender: Uriah Prasad MD, PhD CLIA Number: [id number] [facility] Anti CCPon 12-01-2023 Anti CCP 1.5 U/mL Normal 0.0-7.0 [facility] Comment on above: Result Comment: Reference Range: <7.0 Negative 7.0-10.0 Equivocal >10.0 Positive Performed By: #### P HO, CDP, RA, PT, SED, BMPX, FREDA, MG, LD, CRP, FEBC, B12FOL, PTT, C4, CCPAB, FERI, IOCAL, CORTI, CK, C3, REJEC #### [address] [address] Compliance Tester: Jasbir Montalvo MD Basic Metab w/rfx MGon 12-01 Anion gap [Moles/Vol] 10 mmol/L Normal 9-17 [facility] Comment on above: Performed By: #### P HO, CDP, RA, PT, SED, BMPX, FREDA, MG, LD, CRP, FEBC, B12FOL, PTT, C4, CCPAB, FERI, IOCAL, CORTI, CK, C3, REJEC #### [address] [address] Compliance Tester: Jasbir Montalvo MD Calcium [Mass/Vol] 8.9 mg/dL Normal 8.6-10.4 [facility] Comment on above: Performed By: #### P HO, CDP, RA, PT, SED, BMPX, FREDA, MG, LD, CRP, FEBC, B12FOL, PTT, C4, CCPAB, FERI, IOCAL, CORTI, CK, C3, REJEC #### [address] [address] Compliance Tester: Jasbir Montalvo MD Chloride [Moles/Vol] 108 mmol/L High 98-107 [facility] Comment on above: Performed By: #### P HO, CDP, RA, PT, SED, BMPX, FREDA, MG, LD, CRP, FEBC, B12FOL, PTT, C4, CCPAB, FERI, IOCAL, CORTI, CK, C3, REJEC #### [address] [id number] Compliance Tester: Jasbir Montalvo MD CO2 [Moles/Vol] 22 mmol/L Normal 20-31 [facility] Comment on above: Performed By: #### P HO, CDP, RA, PT, SED, BMPX, FREDA, MG, LD, CRP, FEBC, B12FOL, PTT, C4, CCPAB, FERI, IOCAL, CORTI, CK, C3, REJEC #### [address] [id number] Compliance Tester: Jasbir Montalvo MD Creatinine [Mass/Vol] 1.6 mg/dL High 0.7-1.2 [facility] Comment on above: Performed By: #### P HO, CDP, RA, PT, SED, BMPX, FREDA, MG, LD, CRP, FEBC, B12FOL, PTT, C4, CCPAB, FERI, IOCAL, CORTI, CK, C3, REJEC #### [address] [phone] Compliance Tester: Jasbir Montalvo MD GFR/1.73 sq M.predicted among non-blacks MDRD (S/P/Bld) [Vol rate/Area] 48 mL/min/{1.73_m2} Low >60 [facility] Comment on above: Result [...] FERI, IOCAL, CORTI, CK, C3, REJEC #### [address] [address] Compliance Tester: Jasbir Montalvo MD Glucose [Mass/Vol] 144 mg/dL High 70-99 [facility] Comment on above: Performed By: #### P HO, CDP, RA, PT, SED, BMPX, FREDA, MG, LD, CRP, FEBC, B12FOL, PTT, C4, CCPAB, FERI, IOCAL, CORTI, CK, C3, REJEC #### [address] [address] Compliance Tester: Jasbir Montalvo MD Potassium [Moles/Vol] 3.8 mmol/L Normal 3.7-5.3 [facility] Comment on above: Performed By: #### P HO, CDP, RA, PT, SED, BMPX, FREDA, MG, LD, CRP, FEBC, B12FOL, PTT, C4, CCPAB, FERI, IOCAL, CORTI, CK, C3, REJEC #### [address] [address] Compliance Tester: Jasbir Montalvo MD Sodium [Moles/Vol] 140 mmol/L Normal 135-144 [facility] Comment on above: Performed By: #### P HO, CDP, RA, PT, SED, BMPX, FREDA, MG, LD, CRP, FEBC, B12FOL, PTT, C4, CCPAB, FERI, IOCAL, CORTI, CK, C3, REJEC #### [address] [address] Compliance Tester: Jasbir Montalvo MD Urea nitrogen [Mass/Vol] 39 mg/dL High 8-23 [facility] Comment on above: Performed By: #### P HO, CDP, RA, PT, SED, BMPX, FREDA, MG, LD, CRP, FEBC, B12FOL, PTT, C4, CCPAB, FERI, IOCAL, CORTI, CK, C3, REJEC #### [facility] [place] [id number] Compliance Tester: Jasbir Montalvo MD Basic Metabolic Panel w/ Ref sarah to MGon 12-01-2023 Anion gap [Moles/Vol] 10 mmol/L 9 - 17 mmol/L [facility] Calcium [Mass/Vol] 8.9 mg/dL 8.6 - 10. 4 mg/dL [facility] [employer] Chloride [Moles/Vol] 108 mmol/L High 98 - 10 7 mmol/L [facility] [employer] CO2 [Moles/Vol] 22 mmol/L 20 - 31 mmol/L [facility] Creatinine [Mass/Vol] 1.6 mg/dL High 0.7 - 1.2 mg/dL [facility] GFR/1.73 sq M.predicted MDRD (S/P/Bld) [Vol rate/Area] 48 mL/min/{1.73_m2} Low - PINF [facility] Comment on above: These results are not [...] 144 mg/dL High 70 - 99 mg/dL [facility] Interpretation and review of laboratory results Abnormal [facility] Potassium [Moles/Vol] 3.8 mmol/L 3.7 - 5.3 mmol/L [facility] Sodium [Moles/Vol] 140 mmol/L 135 - 144 mmol/L [facility] Urea nitrogen [Mass/Vol] 39 mg/dL High 8 - 23 mg/dL [facility] CBC with Auto Differentialon 12-01-2023 Basophils (Bld) [#/Vol] 0.08 10*3/uL [facility] Basophils/100 WBC (Bld) 1 % 0 - 2 % [facility] Eosinophils (Bld) [#/Vol] 0.37 10*3/uL [facility] Eosinophils/100 WBC (Bld) 3 % 1 - 4 % [facility] Erythrocyte distribution width (RBC) [Ratio] 14.4 % 11.8 - 14.4 % [facility] Hematocrit (Bld) [Volume fraction] 46.3 % 40.7 - 50.3 % [facility] Hemoglobin (Bld) [Mass/Vol] 14.6 g/dL 13.0 - 17.0 g/dL [facility] Immature granulocytes (Bld) [#/Vol] 0.04 10*3/uL [facility] Immature granulocytes/100 WBC (Bld) 0 % 0 [facility] Lymphocytes/100 WBC (Bld) 25 % 24 - 43 % [facility] Lymphocytes/100 WBC (Bld) 2.76 % [facility] MCH (RBC) [Entitic mass] 31.2 pg 25.2 - 33.5 pg [facility] MCHC (RBC) [Mass/Vol] 31.5 g/dL 28.4 - 34.8 g/dL [facility] MCV (RBC) [Entitic vol] 98.9 fL 82.6 - 102.9 fL [facility] Monocytes/100 WBC (Bld) 8 % 3 - 12 % [facility] Monocytes/100 WBC (Bld) 0.82 % [facility] Neutrophils/100 WBC (Bld) 63 % 36 - 65 % [facility] Nucleated RBC/100 WBC (Bld) [Ratio] 0.0 % 0.0 per 100 WBC [facility] Platelet mean volume (Bld) [Entitic vol] 10.4 fL 8.1 - 13.5 fL [facility] Platelets (Bld) [#/Vol] 223 10*3/uL [facility] RBC (Bld) [#/Vol] 4.68 10*6/uL 4.21 - 5.7 7 m/uL [facility] Segmented neutrophils/100 WBC (Bld) 6.78 % [facility] WBC other (Bld) [#/Vol] 10.9 [facility] CBC with Diffon 12-01-2023 Abs. Basophil 0.08 k/uL Normal 0.00-0.20 [facility] Comment on above: Performed By: #### P HO, CDP, RA, PT, SED, BMPX, FREDA, MG, LD, CRP, FEBC, B12FOL, PTT, C4, CCPAB, FERI, IOCAL, CORTI, CK, C3, REJEC #### [facility] [address] [place] [id number] Compliance Tester: Jasbir Montalvo MD Abs.Imm.Granulocyte 0.04 k/uL Normal 0.00-0.30 [facility] Comment on above: Performed By: #### P HO, CDP, RA, PT, SED, BMPX, FREDA, MG, LD, CRP, FEBC, B12FOL, PTT, C4, CCPAB, FERI, IOCAL, CORTI, CK, C3, REJEC #### [facility] [address] [place] [address] Compliance Tester: Jasbir Montalvo MD Abs.Neutrophil (Seg) 6.78 k/uL Normal 1.50-8.10 [facility] Comment on above: Performed By: #### P HO, CDP, RA, PT, SED, BMPX, FREDA, MG, LD, CRP, FEBC, B12FOL, PTT, C4, CCPAB, FERI, IOCAL, CORTI, CK, C3, REJEC #### [facility] [address] [place] [address] Compliance Tester: Jasbir Montalvo MD Basophils/100 WBC (Bld) 1 % Normal 0-2 [facility] Comment on above: Performed By: #### P HO, CDP, RA, PT, SED, BMPX, FREDA, MG, LD, CRP, FEBC, B12FOL, PTT, C4, CCPAB, FERI, IOCAL, CORTI, CK, C3, REJEC #### [address] [address] Compliance Tester: Jasbir Montalvo MD Eosinophils (Bld) [#/Vol] 0.37 10*3/uL Normal 0.00-0.44 [facility] Comment on above: Performed By: #### P HO, CDP, RA, PT, SED, BMPX, FREDA, MG, LD, CRP, FEBC, B12FOL, PTT, C4, CCPAB, FERI, IOCAL, CORTI, CK, C3, REJEC #### [address] [address] Compliance Tester: Jasbir Montalvo MD Eosinophils/100 WBC (Bld) 3 % Normal 1-4 [facility] Comment on above: Performed By: #### P HO, CDP, RA, PT, SED, BMPX, FREDA, MG, LD, CRP, FEBC, B12FOL, PTT, C4, CCPAB, FERI, IOCAL, CORTI, CK, C3, REJEC #### [address] [address] Compliance Tester: Jasbir Montalvo MD Erythrocyte distribution width (RBC) [Ratio] 14.4 % Normal 11.8-14.4 [facility] Comment on above: Performed By: #### P HO, CDP, RA, PT, SED, BMPX, FREDA, MG, LD, CRP, FEBC, B12FOL, PTT, C4, CCPAB, FERI, IOCAL, CORTI, CK, C3, REJEC #### [address] [address] Compliance Tester: Jasbir Montalvo MD Hematocrit (Bld) [Volume fraction] 46.3 % Normal 40.7-50.3 [facility] Comment on above: Performed By: #### P HO, CDP, RA, PT, SED, BMPX, FREDA, MG, LD, CRP, FEBC, B12FOL, PTT, C4, CCPAB, FERI, IOCAL, CORTI, CK, C3, REJEC #### [address] [address] Compliance Tester: Jasbir Montalvo MD Hemoglobin (Bld) [Mass/Vol] 14.6 g/dL Normal 13.0-17.0 [facility] Comment on above: Performed By: #### P HO, CDP, RA, PT, SED, BMPX, FREDA, MG, LD, CRP, FEBC, B12FOL, PTT, C4, CCPAB, FERI, IOCAL, CORTI, CK, C3, REJEC #### [address] [address] Compliance Tester: Jasbir Montalvo MD Immature granulocytes/100 WBC (Bld) 0 % Normal 0 [facility] Comment on above: Performed By: #### P HO, CDP, RA, PT, SED, BMPX, FREDA, MG, LD, CRP, FEBC, B12FOL, PTT, C4, CCPAB, FERI, IOCAL, CORTI, CK, C3, REJEC #### [address] [address] Compliance Tester: Jasbir Montalvo MD Lymphocytes (Bld) [#/Vol] 2.76 10*3/uL Normal 1.10-3.70 [facility] Comment on above: Performed By: #### P HO, CDP, RA, PT, SED, BMPX, FREDA, MG, LD, CRP, FEBC, B12FOL, PTT, C4, CCPAB, FERI, IOCAL, CORTI, CK, C3, REJEC #### [address] [address] Compliance Tester: Jasbir Montalvo MD Lymphocytes/100 WBC (Bld) 25 % Normal 24-43 [facility] Comment on above: Performed By: #### P HO, CDP, RA, PT, SED, BMPX, FREDA, MG, LD, CRP, FEBC, B12FOL, PTT, C4, CCPAB, FERI, IOCAL, CORTI, CK, C3, REJEC #### [address] [address] Compliance Tester: Jasbir Montalvo MD MCH (RBC) [Entitic mass] 31.2 pg Normal 25.2-33.5 [facility] Comment on above: Performed By: #### P HO, CDP, RA, PT, SED, BMPX, FREDA, MG, LD, CRP, FEBC, B12FOL, PTT, C4, CCPAB, FERI, IOCAL, CORTI, CK, C3, REJEC #### [address] [address] Compliance Tester: Jasbir Montalvo MD MCHC (RBC) [Mass/Vol] 31.5 g/dL Normal 28.4-34.8 [facility] Comment on above: Performed By: #### P HO, CDP, RA, PT, SED, BMPX, FREDA, MG, LD, CRP, FEBC, B12FOL, PTT, C4, CCPAB, FERI, IOCAL, CORTI, CK, C3, REJEC #### [address] [address] Compliance Tester: Jasbir Montalvo MD MCV (RBC) [Entitic vol] 98.9 fL Normal 82.6-102.9 [facility] Comment on above: Performed By: #### P HO, CDP, RA, PT, SED, BMPX, FREDA, MG, LD, CRP, FEBC, B12FOL, PTT, C4, CCPAB, FERI, IOCAL, CORTI, CK, C3, REJEC #### [address] [address] Compliance Tester: Jasbir Montalvo MD Monocytes (Bld) [#/Vol] 0.82 10*3/uL Normal 0.10-1.20 [facility] Comment on above: Performed By: #### P HO, CDP, RA, PT, SED, BMPX, FREDA, MG, LD, CRP, FEBC, B12FOL, PTT, C4, CCPAB, FERI, IOCAL, CORTI, CK, C3, REJEC #### [address] [address] Compliance Tester: Jasbir Montalvo MD Monocytes/100 WBC (Bld) 8 % Normal 3-12 [facility] Comment on above: Performed By: #### P HO, CDP, RA, PT, SED, BMPX, FREDA, MG, LD, CRP, FEBC, B12FOL, PTT, C4, CCPAB, FERI, IOCAL, CORTI, CK, C3, REJEC #### [address] [address] Compliance Tester: Jasbir Montalvo MD Neutrophil (Seg) 63 % Normal 36-65 [facility] Comment on above: Performed By: #### P HO, CDP, RA, PT, SED, BMPX, FREDA, MG, LD, CRP, FEBC, B12FOL, PTT, C4, CCPAB, FERI, IOCAL, CORTI, CK, C3, REJEC #### [address] [address] Compliance Tester: Jasbir Montalvo MD NRBC Automated 0.0 per 100 WBC Normal 0.0 [facility] Comment on above: Performed By: #### P HO, CDP, RA, PT, SED, BMPX, FREDA, MG, LD, CRP, FEBC, B12FOL, PTT, C4, CCPAB, FERI, IOCAL, CORTI, CK, C3, REJEC #### [address] [address] Compliance Tester: Jasbir Montalvo MD Platelet mean volume (Bld) [Entitic vol] 10.4 fL Normal 8.1-13.5 [facility] Comment on above: Performed By: #### P HO, CDP, RA, PT, SED, BMPX, FREDA, MG, LD, CRP, FEBC, B12FOL, PTT, C4, CCPAB, FERI, IOCAL, CORTI, CK, C3, REJEC #### [address] [address] Compliance Tester: Jasbir Montalvo MD Platelets (Bld) [#/Vol] 223 10*3/uL Normal 138-453 [facility] Comment on above: Performed By: #### P HO, CDP, RA, PT, SED, BMPX, FREDA, MG, LD, CRP, FEBC, B12FOL, PTT, C4, CCPAB, FERI, IOCAL, CORTI, CK, C3, REJEC #### [address] [address] Compliance Tester: Jasbir Montalvo MD RBC (Bld) [#/Vol] 4.68 10*6/uL Normal 4.21-5.77 [facility] Comment on above: Performed By: #### P HO, CDP, RA, PT, SED, BMPX, FREDA, MG, LD, CRP, FEBC, B12FOL, PTT, C4, CCPAB, FERI, IOCAL, CORTI, CK, C3, REJEC #### [address] [address] Compliance Tester: Jasbir Montalvo MD WBC (Bld) [#/Vol] 10.9 10*3/uL Normal 3.5-11.3 [facility] Comment on above: Performed By: #### P HO, CDP, RA, PT, SED, BMPX, FREDA, MG, LD, CRP, FEBC, B12FOL, PTT, C4, CCPAB, FERI, IOCAL, CORTI, CK, C3, REJEC #### [address] [address] Compliance Tester: Jasbir Montalvo MD CT CERVICAL SPINE WO [...] HISTORY: rule out myelopathy, radiculopathy. cannot have TOWER CONTROL OPERATOR PROVIDED HISTORY: rule out myelopathy, radiculopathy. cannot [...] Erica Garcia MD 12/01/23 Final result Normal [facility] CT Cervical spine WO contras ton 12-01-2023 Canal effacement at C6-7. [facility] RIS CONSOLIDATED EXAMINATION: CT OF THE [...] HISTORY: rule out myelopathy, radiculopathy. cannot have TOWER CONTROL OPERATOR PROVIDED HISTORY: rule out myelopathy, radiculopathy. cannot [...] C7-T1 facet arthropathy.. Mild bilateral foraminal narrowing PN [facility] Erica Erazo MD - 12/01/2023 EXAMINATION: CT [...] HISTORY: rule out myelopathy, radiculopathy. cannot have TOWER CONTROL OPERATOR PROVIDED HISTORY: rule out myelopathy, radiculopathy. cannot [...] narrowing IMPRESSION: Canal effacement at C6-7. [facility] Radiology Study observation (narrative) [facility] CT Cervical spine WO contras tOrdered By: Ercia Ramas on 12-01-2023 [employer] Work Phone: CYCLIC CITRUL PEPTIDE ANTIBO DY, IGGon 12-01-2023 Cyclic citrullinated peptide Ab IA Qn (S) 1.5 U/mL 0.0 - 7.0 U/mL [facility] Comment on above: Reference Range: <7.0 Negative 7.0-10.0 Equivocal >10.0 Positive [facility] [employer] [place] MODIFIED BARIUM SWALLOW W VIDEOon 12-01-2023 [place] MODIFIED BARIUM SWALLOW W VIDEO EXAMINATION: MODIFIED BARIUM SWALLOW WAS PERFORMED IN CONJUNCTION WITH SPEECH PATHOLOGY SERVICES TECHNIQUE: Under fluoroscopic evaluation cineradiography/video radiography recordings were performed in conjunction with the speech-language pathologist (CONTRACTING OFFICER). Various liquid, solid and/or semi-solid barium preparations [...] Micah Davis MD 12/01/23 Final result Normal [facility] 1. Trace penetration without aspiration with the thin liquid substance by straw. 2. No penetration or aspiration with the above administered substances. Please see separate speech pathology report for full discussion of findings and recommendations. [facility] RIS CONSOLIDATED EXAMINATION: MODIFIED BARIUM SWALLOW WAS PERFORMED IN CONJUNCTION WITH SPEECH PATHOLOGY SERVICES TECHNIQUE: Under fluoroscopic evaluation cineradiography/video radiography recordings were performed in conjunction with the speech-language pathologist (CONTRACTING OFFICER). Various liquid, solid and/or semi-solid barium preparations [...] with the thin liquid substance by straw. [facility] Micah Johnson MD - 12/01/2023 EXAMINATION: MODIFIED BARIUM SWALLOW WAS PERFORMED IN CONJUNCTION WITH SPEECH PATHOLOGY SERVICES TECHNIQUE: Under fluoroscopic evaluation cineradiography/video radiography recordings were performed in conjunction with the speech-language pathologist (CONTRACTING OFFICER). Various liquid, solid and/or semi-solid barium preparations [...] full discussion of findings and recommendations. [facility] Radiology Study observation (narrative) [facility] MODIFIED BARIUM SWALLOW W VIDEOOrdered By: Micah Davis on 12-01-2023 [facility] Work Phone: Glucose,Whole Bloodon 2023 Glucose [Mass/Vol] 168 mg/dL High 75-110 [facility] Glucose [Mass/Vol] 108 mg/dL Normal 75-110 [facility] Glucose [Mass/Vol] 226 mg/dL High 75-110 [facility] Glucose [Mass/Vol] 150 mg/dL High 75-110 [facility] Glucose [Mass/Vol] 148 mg/dL High 75-110 [facility] POC Glucose Fingerstickon Glucose [Mass/Vol] 168 mg/dL High 75 - 110 mg/dL [facility] Interpretation and review of laboratory results Abnormal [facility] Glucose [Mass/Vol] 108 mg/dL 75 - 110 mg/dL [facility] Glucose [Mass/Vol] 226 mg/dL High 75 - 110 mg/dL [facility] Interpretation and review of laboratory results Abnormal [facility] Glucose [Mass/Vol] 150 mg/dL High 75 - 110 mg/dL [facility] Interpretation and review of laboratory results Abnormal [facility] Glucose [Mass/Vol] 148 mg/dL High 75 - 110 mg/dL [facility] Interpretation and review of laboratory results Abnormal [facility] PSA Screeningon 12-01-2023 Prostate specific Ag [Mass/Vol] 1.50 ng/mL 0.00 - 4.00 ng/mL [facility] Comment on above: The Saray ECLIA as say is used. Results obtained with different assay methods cannot be used interchangeably. [facility] PSA, Screeningon 12-01-2023 Prostatic Spec. Ag 1.50 ng/mL Normal 0.00-4.00 [facility] Comment on above: Result Comment: The Saray ECLIA assay is used. Results obtained with different assay methods cannot be used interchangeably. Performed By: #### P HO, CDP, RA, PT, SED, BMPX, FREDA, MG, LD, CRP, FEBC, B12FOL, PTT, C4, CCPAB, FERI, IOCAL, CORTI, CK, C3, REJEC #### [facility] [place] [address] Compliance Tester: Jasbir Montalvo MD PTon 12-01-2023 INR Coag (PPP) [Relative time] 2.8 {INR} Normal [facility] Comment on above: Result Comment: Therapeutic Range: Moderate Anticoagulant Intensity: INR = 2.0-3.0 High Anticoagulant Intensity: INR = 2.5-3.5 Performed By: #### P HO, CDP, RA, PT, SED, BMPX, FREDA, MG, LD, CRP, FEBC, B12FOL, PTT, C4, CCPAB, FERI, IOCAL, CORTI, CK, C3, REJEC #### [facility] [address] [place] [phone] Compliance Tester: Jasbir Montalvo MD PT Coag (PPP) [Time] 28.5 s High 11.7-14.9 [facility] Comment on above: Performed By: #### P HO, CDP, RA, PT, SED, BMPX, FREDA, MG, LD, CRP, FEBC, B12FOL, PTT, C4, CCPAB, FERI, IOCAL, CORTI, CK, C3, REJEC #### [address] [address] Compliance Tester: Jasbir Montalvo MD Protime-INRon 12-01-2023 INR Coag (PPP) [Relative time] 2.8 {INR} [facility] Comment on above: Therapeutic Range: Moderate Anticoagulant Intensity: INR = 2.0-3.0 High Anticoagulant Intensity: INR = 2.5-3.5 Interpretation and review of laboratory results Abnormal [facility] PT Coag (PPP) [Time] 28.5 s High [facility] Troponinon 12-01-2023 Troponin, High Sens 23 ng/L High 0-22 [facility] Comment on above: Result Comment: High Sensitivity Troponin values cannot be compared with other Troponin methodologies. Performed By: #### P HO, CDP, RA, PT, SED, BMPX, FREDA, MG, LD, CRP, FEBC, B12FOL, PTT, C4, CCPAB, FERI, IOCAL, CORTI, CK, C3, REJEC #### [address] [address] Compliance Tester: Jasbir Montalvo MD Interpretation and review of laboratory results Abnormal [facility] Troponin I.cardiac High sensitivity method [Mass/Vol] 23 ng/L High 0 - 22 ng/L [facility] Comment on above: High Sensitivity Tro ponin values cannot be compared with other Troponin methodologies. [facility] APTTon 11-30-2023 aPTT Coag (Bld) [Time] 38.4 s High 23.0-36.5 [facility] Comment on above: Result Comment: IV Heparin Therapy Range: 66.0-92.0 sec Performed By: #### P HO, CDP, RA, PT, SED, BMPX, FREDA, MG, LD, CRP, FEBC, B12FOL, PTT, C4, CCPAB, FERI, IOCAL, CORTI, CK, C3, REJEC ####[address] [address] lab Director: Jasbir Montalvo MD aPTT Coag (Bld) [Time] 38.4 s High [facility] Comment on above: IV Heparin Therapy Range: 66.0-92.0 sec B12/Folate Panelon Cobalamin (Vitamin B12) [Mass/Vol] 397 pg/mL Normal 232-1245 [facility] Comment on above: Performed By: #### P HO, CDP, RA, PT, SED, BMPX, FREDA, MG, LD, CRP, FEBC, B12FOL, PTT, C4, CCPAB, FERI, IOCAL, CORTI, CK, C3, REJEC ####[facility] [address] [place] [address] [id number] lab Director: Jasbir Montalvo MD Folic Acid 6.2 ng/mL Normal >4.8 [facility] Comment on above: Performed By: #### P HO, CDP, RA, PT, SED, BMPX, FREDA, MG, LD, CRP, FEBC, B12FOL, PTT, C4, CCPAB, FERI, IOCAL, CORTI, CK, C3, REJEC ####[facility] [address] [place] [address] [id number] Lab Director: Jasbir Montalvo MD BLOOD GAS, VENOUSon 11-30-19 Carboxyhemoglobin (Bld) [Mass fraction] 1.6 % 0 - 5 % [facility] Comment on above: Reference Range: Non-Smokers 0-2% Average Smoker 2-4% Heavy Smoker <10% HCO3 (Bld) [Moles/Vol] 26.1 mmol/L 24 - 30 mmol/L [facility] Interpretation and review of laboratory results Abnormal [facility] Negative Base Excess, Pop 1.1 mmol/L 0.0 - 2.0 mmol/L [facility] Oxygen saturation in Blood 84.3 % 60.0 - 85.0 % [facility] Oxygen/Inspired gas Respiratory system --on ventilator INFORMATION NOT PROVIDED [facility] pCO2, Pop 55.2 High [facility] pH, Pop 7.297 Low 7.320 - 7.420 [facility] pO2, Pop 55.2 High [facility] Basic Metab w/rfx MGon 11-30 Glucose [Mass/Vol] 49 mg/dL Low 70-99 [facility] Comment on above: Performed By: #### P HO, CDP, RA, PT, SED, BMPX, FREDA, MG, LD, CRP, FEBC, B12FOL, PTT, C4, CCPAB, FERI, IOCAL, CORTI, CK, C3, REJEC ####[place] [id number] [facility] Director: Jasbir Montalvo MD Anion gap [Moles/Vol] 11 mmol/L Normal 9-17 [facility] Comment on above: Performed By: #### P HO, CDP, RA, PT, SED, BMPX, FREDA, MG, LD, CRP, FEBC, B12FOL, PTT, C4, CCPAB, FERI, IOCAL, CORTI, CK, C3, REJEC ####[place] [id number] [facility] Director: Jasbir Montalvo MD Calcium [Mass/Vol] 8.9 mg/dL Normal 8.6-10.4 [facility] Comment on above: Performed By: #### P HO, CDP, RA, PT, SED, BMPX, FREDA, MG, LD, CRP, FEBC, B12FOL, PTT, C4, CCPAB, FERI, IOCAL, CORTI, CK, C3, REJEC ####[address] [id number] [facility] Director: Jasbir Montalvo MD Chloride [Moles/Vol] 114 mmol/L High 98-107 [facility] Comment on above: Performed By: #### P HO, CDP, RA, PT, SED, BMPX, FREDA, MG, LD, CRP, FEBC, B12FOL, PTT, C4, CCPAB, FERI, IOCAL, CORTI, CK, C3, REJEC ####[address] [address] [facility] Director: Jasbir Montalvo MD CO2 [Moles/Vol] 21 mmol/L Normal 20-31 [facility] Comment on above: Performed By: #### P HO, CDP, RA, PT, SED, BMPX, FREDA, MG, LD, CRP, FEBC, B12FOL, PTT, C4, CCPAB, FERI, IOCAL, CORTI, CK, C3, REJEC ####[address] [address] lab Director: Jasbir Montalvo MD Creatinine [Mass/Vol] 1.5 mg/dL High 0.7-1.2 [facility] Comment on above: Performed By: #### P HO, CDP, RA, PT, SED, BMPX, FREDA, MG, LD, CRP, FEBC, B12FOL, PTT, C4, CCPAB, FERI, IOCAL, CORTI, CK, C3, REJEC ####[address] [id number] lab Director: Jasbir Montalvo MD GFR/1.73 sq M.predicted among non-blacks MDRD (S/P/Bld) [Vol rate/Area] 52 mL/min/{1.73_m2} Low >60 [facility] Comment on above: Result [...] IOCAL, CORTI, CK, C3, REJEC ####[place] [id number] [facility] Director: Jasbir Montalvo MD Potassium [Moles/Vol] 3.7 mmol/L Normal 3.7-5.3 [facility] Comment on above: Performed By: #### P HO, CDP, RA, PT, SED, BMPX, FREDA, MG, LD, CRP, FEBC, B12FOL, PTT, C4, CCPAB, FERI, IOCAL, CORTI, CK, C3, REJEC ####[place] [id number] [facility] Director: Jasbir Montalvo MD Sodium [Moles/Vol] 146 mmol/L High 135-144 [facility] Comment on above: Performed By: #### P HO, CDP, RA, PT, SED, BMPX, FREDA, MG, LD, CRP, FEBC, B12FOL, PTT, C4, CCPAB, FERI, IOCAL, CORTI, CK, C3, REJEC ####[place] [id number] Lab Director: Jasbir Montalvo MD Urea nitrogen [Mass/Vol] 37 mg/dL High 8-23 [facility] Comment on above: Performed By: #### P HO, CDP, RA, PT, SED, BMPX, FREDA, MG, LD, CRP, FEBC, B12FOL, PTT, C4, CCPAB, FERI, IOCAL, CORTI, CK, C3, REJEC ####[facility] [address] [place] [address] Lab Director: Jasbir Montalvo MD Basic Metabolic Panel w/ Ref sarah to MGon 11-30-2023 Anion gap [Moles/Vol] 11 mmol/L 9 - 17 mmol/L [facility] [employer] Calcium [Mass/Vol] 8.9 mg/dL 8.6 - 10. 4 mg/dL [facility] Chloride [Moles/Vol] 114 mmol/L High 98 - 10 7 mmol/L [facility] CO2 [Moles/Vol] 21 mmol/L 20 - 31 mmol/L [facility] Creatinine [Mass/Vol] 1.5 mg/dL High 0.7 - 1.2 mg/dL [facility] GFR/1.73 sq M.predicted MDRD (S/P/Bld) [Vol rate/Area] 52 mL/min/{1.73_m2} Low - PINF [facility] [employer] Comment on above: These results are not [...] 49 mg/dL Low 70 - 99 mg/dL [facility] [employer] Interpretation and review of laboratory results Abnormal [facility] Potassium [Moles/Vol] 3.7 mmol/L 3.7 - 5.3 mmol/L [facility] Sodium [Moles/Vol] 146 mmol/L High 135 - 144 mmol/L [facility] [employer] Urea nitrogen [Mass/Vol] 37 mg/dL High 8 - 23 mg/dL [facility] C-Reactive Proteinon 02-25-2 024 CRP [Mass/Vol] 4.8 mg/L Normal 0.0-5.0 [facility] Comment on above: Performed By: #### P HO, CDP, RA, PT, SED, BMPX, FREDA, MG, LD, CRP, FEBC, B12FOL, PTT, C4, CCPAB, FERI, IOCAL, CORTI, CK, C3, REJEC #### [employer] [address] [place] [id number] Compliance Tester: Jasbir Montalvo MD CRP High sensitivity method [Mass/Vol] 4.8 mg/L 0.0 - 5.0 mg/L [facility] [employer] C3on 11-30-2023 C3 146 mg/dL Normal 90-180 [facility] Comment on above: Performed By: #### P HO, CDP, RA, PT, SED, BMPX, FREDA, MG, LD, CRP, FEBC, B12FOL, PTT, C4, CCPAB, FERI, IOCAL, CORTI, CK, C3, REJEC #### [employer] [address] [place] [phone] Compliance Tester: Jasbir Montalvo MD C3 COMPLEMENTon 11-30-2023 Complement C3 [Mass/Vol] 146 mg/dL 90 - 180 mg/dL [facility] [employer] C4on 11-30-2023 C4 24 mg/dL Normal 10-40 [facility] Comment on above: Performed By: #### P HO, CDP, RA, PT, SED, BMPX, FREDA, MG, LD, CRP, FEBC, B12FOL, PTT, C4, CCPAB, FERI, IOCAL, CORTI, CK, C3, REJEC #### [employer] [address] [place] [phone] Compliance Tester: Jasbir Montalvo MD C4 COMPLEMENTon 11-30-2023 Complement C4 [Mass/Vol] 24 mg/dL 10 - 40 mg/dL [facility] [employer] CBC with Auto Differentialon 11-30-2023 Basophils (Bld) [#/Vol] 0.08 10*3/uL [facility] [employer] [facility] [employer] Basophils/100 WBC (Bld) 1 % 0 - 2 % [facility] Eosinophils (Bld) [#/Vol] 0.31 10*3/uL [facility] Eosinophils/100 WBC (Bld) 3 % 1 - 4 % [facility] Erythrocyte distribution width (RBC) [Ratio] 14.2 % 11.8 - 14.4 % [facility] Hematocrit (Bld) [Volume fraction] 49.3 % 40.7 - 50.3 % [facility] Hemoglobin (Bld) [Mass/Vol] 15.4 g/dL 13.0 - 17.0 g/dL [facility] Immature granulocytes (Bld) [#/Vol] [facility] Immature granulocytes/100 WBC (Bld) 0 % 0 [facility] Lymphocytes/100 WBC (Bld) 26 % 24 - 43 % [facility] Lymphocytes/100 WBC (Bld) 2.64 % [facility] MCH (RBC) [Entitic mass] 31.2 pg 25.2 - 33.5 pg [facility] MCHC (RBC) [Mass/Vol] 31.2 g/dL 28.4 - 34.8 g/dL [facility] MCV (RBC) [Entitic vol] 99.8 fL 82.6 - 102.9 fL [facility] Monocytes/100 WBC (Bld) 7 % 3 - 12 % [facility] Monocytes/100 WBC (Bld) 0.74 % [facility] Neutrophils/100 WBC (Bld) 63 % 36 - 65 % [facility] Nucleated RBC/100 WBC (Bld) [Ratio] 0.0 % 0.0 per 100 WBC [facility] Platelet mean volume (Bld) [Entitic vol] 10.0 fL 8.1 - 13.5 fL [facility] Platelets (Bld) [#/Vol] 214 10*3/uL [facility] RBC (Bld) [#/Vol] 4.94 10*6/uL 4.21 - 5.7 7 m/uL [facility] Segmented neutrophils/100 WBC (Bld) 6.30 % [facility] WBC other (Bld) [#/Vol] 10.1 [facility] CBC with Diffon 11-30-2023 Abs. Basophil 0.08 k/uL Normal 0.00-0.20 [facility] Comment on above: Performed By: #### P HO, CDP, RA, PT, SED, BMPX, FREDA, MG, LD, CRP, FEBC, B12FOL, PTT, C4, CCPAB, FERI, IOCAL, CORTI, CK, C3, REJEC #### [facility] [address] [place] [phone] Compliance Tester: Jasbir Montalvo MD Abs.Imm.Granulocyte <0.03 Normal 0.00-0.30 [facility] Comment on above: Performed By: #### P HO, CDP, RA, PT, SED, BMPX, FREDA, MG, LD, CRP, FEBC, B12FOL, PTT, C4, CCPAB, FERI, IOCAL, CORTI, CK, C3, REJEC #### [facility] [address] [place] [phone] Compliance Tester: Jasbir Montalvo MD Abs.Neutrophil (Seg) 6.30 k/uL Normal 1.50-8.10 [facility] Comment on above: Performed By: #### P HO, CDP, RA, PT, SED, BMPX, FREDA, MG, LD, CRP, FEBC, B12FOL, PTT, C4, CCPAB, FERI, IOCAL, CORTI, CK, C3, REJEC #### [facility] [address] [place] [phone] Compliance Tester: Jasbir Montalvo MD Basophils/100 WBC (Bld) 1 % Normal 0-2 [facility] Comment on above: Performed By: #### P HO, CDP, RA, PT, SED, BMPX, FREDA, MG, LD, CRP, FEBC, B12FOL, PTT, C4, CCPAB, FERI, IOCAL, CORTI, CK, C3, REJEC #### [address] [id number] Compliance Tester: Jasbir Montalvo MD Eosinophils (Bld) [#/Vol] 0.31 10*3/uL Normal 0.00-0.44 [facility] Comment on above: Performed By: #### P HO, CDP, RA, PT, SED, BMPX, FREDA, MG, LD, CRP, FEBC, B12FOL, PTT, C4, CCPAB, FERI, IOCAL, CORTI, CK, C3, REJEC #### [facility] [address] [place] [address] [phone] Compliance Tester: Jasbir Montalvo MD Eosinophils/100 WBC (Bld) 3 % Normal 1-4 [facility] Comment on above: Performed By: #### P HO, CDP, RA, PT, SED, BMPX, FREDA, MG, LD, CRP, FEBC, B12FOL, PTT, C4, CCPAB, FERI, IOCAL, CORTI, CK, C3, REJEC #### [address] [id number] Compliance Tester: Jasbir Montalvo MD Erythrocyte distribution width (RBC) [Ratio] 14.2 % Normal 11.8-14.4 [facility] Comment on above: Performed By: #### P HO, CDP, RA, PT, SED, BMPX, FREDA, MG, LD, CRP, FEBC, B12FOL, PTT, C4, CCPAB, FERI, IOCAL, CORTI, CK, C3, REJEC #### [address] [phone] Compliance Tester: Jasbir Montalvo MD Hematocrit (Bld) [Volume fraction] 49.3 % Normal 40.7-50.3 [facility] Comment on above: Performed By: #### P HO, CDP, RA, PT, SED, BMPX, FREDA, MG, LD, CRP, FEBC, B12FOL, PTT, C4, CCPAB, FERI, IOCAL, CORTI, CK, C3, REJEC #### [facility] [address] [place] [address] [phone] Compliance Tester: Jasbir Montalvo MD Hemoglobin (Bld) [Mass/Vol] 15.4 g/dL Normal 13.0-17.0 [facility] Comment on above: Performed By: #### P HO, CDP, RA, PT, SED, BMPX, FREDA, MG, LD, CRP, FEBC, B12FOL, PTT, C4, CCPAB, FERI, IOCAL, CORTI, CK, C3, REJEC #### [facility] [address] [place] [address] [id number] Compliance Tester: Jasbir Montalvo MD Immature granulocytes/100 WBC (Bld) 0 % Normal 0 [facility] Comment on above: Performed By: #### P HO, CDP, RA, PT, SED, BMPX, FREDA, MG, LD, CRP, FEBC, B12FOL, PTT, C4, CCPAB, FERI, IOCAL, CORTI, CK, C3, REJEC #### [address] [id number] Compliance Tester: Jasbir Montalvo MD Lymphocytes (Bld) [#/Vol] 2.64 10*3/uL Normal 1.10-3.70 [facility] Comment on above: Performed By: #### P HO, CDP, RA, PT, SED, BMPX, FREDA, MG, LD, CRP, FEBC, B12FOL, PTT, C4, CCPAB, FERI, IOCAL, CORTI, CK, C3, REJEC #### [facility] [address] [place] [id number] Compliance Tester: Jasbir Montalvo MD Lymphocytes/100 WBC (Bld) 26 % Normal 24-43 [facility] Comment on above: Performed By: #### P HO, CDP, RA, PT, SED, BMPX, FREDA, MG, LD, CRP, FEBC, B12FOL, PTT, C4, CCPAB, FERI, IOCAL, CORTI, CK, C3, REJEC #### [address] [id number] Compliance Tester: Jasbir Montalvo MD MCH (RBC) [Entitic mass] 31.2 pg Normal 25.2-33.5 [facility] Comment on above: Performed By: #### P HO, CDP, RA, PT, SED, BMPX, FREDA, MG, LD, CRP, FEBC, B12FOL, PTT, C4, CCPAB, FERI, IOCAL, CORTI, CK, C3, REJEC #### [address] [id number] Compliance Tester: Jasbir Montalvo MD MCHC (RBC) [Mass/Vol] 31.2 g/dL Normal 28.4-34.8 [facility] Comment on above: Performed By: #### P HO, CDP, RA, PT, SED, BMPX, FREDA, MG, LD, CRP, FEBC, B12FOL, PTT, C4, CCPAB, FERI, IOCAL, CORTI, CK, C3, REJEC #### [address] [id number] Compliance Tester: Jasbir Montalvo MD MCV (RBC) [Entitic vol] 99.8 fL Normal 82.6-102.9 [facility] [facility] Comment on above: Performed By: #### P HO, CDP, RA, PT, SED, BMPX, FREDA, MG, LD, CRP, FEBC, B12FOL, PTT, C4, CCPAB, FERI, IOCAL, CORTI, CK, C3, REJEC #### [address] [address] Compliance Tester: Jasbir Montalvo MD Monocytes (Bld) [#/Vol] 0.74 10*3/uL Normal 0.10-1.20 [facility] Comment on above: Performed By: #### P HO, CDP, RA, PT, SED, BMPX, FREDA, MG, LD, CRP, FEBC, B12FOL, PTT, C4, CCPAB, FERI, IOCAL, CORTI, CK, C3, REJEC #### [address] [address] Compliance Tester: Jasbir Montalvo MD Monocytes/100 WBC (Bld) 7 % Normal 3-12 [facility] Comment on above: Performed By: #### P HO, CDP, RA, PT, SED, BMPX, FREDA, MG, LD, CRP, FEBC, B12FOL, PTT, C4, CCPAB, FERI, IOCAL, CORTI, CK, C3, REJEC #### [address] [id number] Compliance Tester: Jasbir Montalvo MD Neutrophil (Seg) 63 % Normal 36-65 [facility] Comment on above: Performed By: #### P HO, CDP, RA, PT, SED, BMPX, FREDA, MG, LD, CRP, FEBC, B12FOL, PTT, C4, CCPAB, FERI, IOCAL, CORTI, CK, C3, REJEC #### [address] [address] Compliance Tester: Jasbir Montalvo MD NRBC Automated 0.0 per 100 WBC Normal 0.0 [facility] Comment on above: Performed By: #### P HO, CDP, RA, PT, SED, BMPX, FREDA, MG, LD, CRP, FEBC, B12FOL, PTT, C4, CCPAB, FERI, IOCAL, CORTI, CK, C3, REJEC #### [address] [id number] Compliance Tester: Jasbir Montalvo MD Platelet mean volume (Bld) [Entitic vol] 10.0 fL Normal 8.1-13.5 [facility] Comment on above: Performed By: #### P HO, CDP, RA, PT, SED, BMPX, FREDA, MG, LD, CRP, FEBC, B12FOL, PTT, C4, CCPAB, FERI, IOCAL, CORTI, CK, C3, REJEC #### [facility] [address] [place] [address] [phone] Compliance Tester: Jasbir Montalvo MD Platelets (Bld) [#/Vol] 214 10*3/uL Normal 138-453 [facility] Comment on above: Performed By: #### P HO, CDP, RA, PT, SED, BMPX, FREDA, MG, LD, CRP, FEBC, B12FOL, PTT, C4, CCPAB, FERI, IOCAL, CORTI, CK, C3, REJEC #### [address] [phone] Compliance Tester: Jasbir Montalvo MD RBC (Bld) [#/Vol] 4.94 10*6/uL Normal 4.21-5.77 [facility] Comment on above: Performed By: #### P HO, CDP, RA, PT, SED, BMPX, FREDA, MG, LD, CRP, FEBC, B12FOL, PTT, C4, CCPAB, FERI, IOCAL, CORTI, CK, C3, REJEC #### [address] [phone] Compliance Tester: Jasbir Montalvo MD WBC (Bld) [#/Vol] 10.1 10*3/uL Normal 3.5-11.3 [facility] Comment on above: Performed By: #### P HO, CDP, RA, PT, SED, BMPX, FREDA, MG, LD, CRP, FEBC, B12FOL, PTT, C4, CCPAB, FERI, IOCAL, CORTI, CK, C3, REJEC #### [address] [address] Compliance Tester: Jasbir Montalvo MD CKon 11-30-2023 CK [Catalytic activity/Vol] 69 U/L 39 - 308 U/L [facility] CT LUMBAR SPINE WO CONTRASTo [...] Shanthi Mcdonough MD 11/30/23 Final result Normal [facility] CT THORACIC SPINE WO CONTRAS Ton [...] Shanthi Mcdonough MD 11/30/23 Final result Normal [facility] Calcium, Ionicon 11-30-2023 Calcium [Moles/Vol] 1.21 mmol/L Normal 1.13-1.33 [facility] Comment on above: Performed By: #### P HO, CDP, RA, PT, SED, BMPX, FREDA, MG, LD, CRP, FEBC, B12FOL, PTT, C4, CCPAB, FERI, IOCAL, CORTI, CK, C3, REJEC ####[facility] [place] [address] [id number] Lab Director: Jasbir Montalvo MD Calcium, Ionizedon Calcium.ionized (Bld) [Moles/Vol] 1.21 mmol/L 1.13 - 1.33 mmol/L [facility] Cortisolon 11-30-2023 Cortisol 15.5 ug/dL Normal 2.7-18.4 [facility] Comment on above: Result Comment: Cortisol Reference Range: AM 6.0-18.4 PM 2.7-10.5 Performed By: #### P HO, CDP, RA, PT, SED, BMPX, FREDA, MG, LD, CRP, FEBC, B12FOL, PTT, C4, CCPAB, FERI, IOCAL, CORTI, CK, C3, REJEC #### [facility] [address] [place] [address] [phone] Compliance Tester: Jasbir Montalvo MD Cortisol Totalon 11-30-2023 Cortisol [Mass/Vol] 15.5 ug/dL 2.7 - 18 .4 ug/dL [facility] Comment on above: Cortisol Reference Range: AM 6.0-18.4 PM 2.7-10.5 Creatine Kinaseon 11-30-2023 CK [Catalytic activity/Vol] 69 U/L Normal 39-308 [facility] Comment on above: Performed By: #### P HO, CDP, RA, PT, SED, BMPX, FREDA, MG, LD, CRP, FEBC, B12FOL, PTT, C4, CCPAB, FERI, IOCAL, CORTI, CK, C3, REJEC #### [facility] [address] [place] [address] [phone] Compliance Tester: Jasbir Montalvo MD Ferritinon 11-30-2023 Ferritin [Mass/Vol] 151 ng/mL Normal 30-400 [facility] Comment on above: Performed By: #### P HO, CDP, RA, PT, SED, BMPX, FREDA, MG, LD, CRP, FEBC, B12FOL, PTT, C4, CCPAB, FERI, IOCAL, CORTI, CK, C3, REJEC #### [facility] [place] [address] Compliance Tester: Jasbir Montalvo MD Ferritin [Mass/Vol] 151 ng/mL 30 - 400 ng/mL [facility] Glucose,Whole Bloodon 2023 Glucose [Mass/Vol] 231 mg/dL High 75-110 [facility] Glucose [Mass/Vol] 98 mg/dL Normal 75-110 [facility] Glucose [Mass/Vol] 154 mg/dL High 75-110 [facility] Glucose [Mass/Vol] 137 mg/dL High 75-110 [facility] Glucose [Mass/Vol] 55 mg/dL Low 75-110 [facility] Glucose [Mass/Vol] 48 mg/dL Low 75-110 [facility] Comment on above: Result Comment: Evaristo cannon Noted Iron Binding Cap.on 11-30-19 24 % Fe Saturation 24 % Normal 20-55 [facility] Comment on above: Performed By: #### P HO, CDP, RA, PT, SED, BMPX, FREDA, MG, LD, CRP, FEBC, B12FOL, PTT, C4, CCPAB, FERI, IOCAL, CORTI, CK, C3, REJEC #### [facility] [place] [address] Compliance Tester: Jasbir Montalvo MD Iron [Mass/Vol] 54 ug/dL Low 59-158 [facility] Comment on above: Performed By: #### P HO, CDP, RA, PT, SED, BMPX, FREDA, MG, LD, CRP, FEBC, B12FOL, PTT, C4, CCPAB, FERI, IOCAL, CORTI, CK, C3, REJEC #### [facility] [facility] [place] [address] Compliance Tester: Jasbir Montalvo MD Total Fe Binding Cap 224 ug/dL Low 250-450 [facility] Comment on above: Performed By: #### P HO, CDP, RA, PT, SED, BMPX, FREDA, MG, LD, CRP, FEBC, B12FOL, PTT, C4, CCPAB, FERI, IOCAL, CORTI, CK, C3, REJEC #### [facility] [facility] [address] [place] [phone] Compliance Tester: Jasbir Montalvo MD Unbound Fe Bind Cap 170 ug/dL Normal 112-347 [facility] Comment on above: Performed By: #### P HO, CDP, RA, PT, SED, BMPX, FREDA, MG, LD, CRP, FEBC, B12FOL, PTT, C4, CCPAB, FERI, IOCAL, CORTI, CK, C3, REJEC #### [facility] [address] [place] [phone] Compliance Tester: Jasbir Montalvo MD Iron and TIBCon 11-30-2023 Interpretation and review of laboratory results Abnormal [facility] Iron [Mass/Vol] 54 ug/dL Low 59 - 158 ug/dL [facility] Iron binding capacity [Mass/Vol] 224 ug/dL Low 250 - 450 ug/dL [facility] Iron saturation [Mass fraction] 24 % 20 - 55 % [facility] UIBC 170 ug/dL 112 - 347 ug/dL [facility] Lactate Dehydrogenaseon 11-07 LDH [Catalytic activity/Vol] 243 U/L High 135-225 [facility] Comment on above: Performed By: #### P HO, CDP, RA, PT, SED, BMPX, FREDA, MG, LD, CRP, FEBC, B12FOL, PTT, C4, CCPAB, FERI, IOCAL, CORTI, CK, C3, REJEC #### [facility] [facility] [place] [address] Compliance Tester: Jasbir Montalvo MD LDH [Catalytic activity/Vol] 243 U/L High 135 - 225 U/L [facility] Magnesiumon 11-30-2023 Magnesium [Mass/Vol] 2.7 mg/dL High 1.6-2.6 [facility] Comment on above: Performed By: #### P HO, CDP, RA, PT, SED, BMPX, FREDA, MG, LD, CRP, FEBC, B12FOL, PTT, C4, CCPAB, FERI, IOCAL, CORTI, CK, C3, REJEC ####[facility] [place], [place] [phone] Lab Director: Jasbir Montalvo MD Magnesium [Mass/Vol] 2.7 mg/dL High 1.6 - 2 .6 mg/dL [facility] Myoglobinon 11-30-2023 Myoglobin [Mass/Vol] 59 ng/mL Normal 28-72 [facility] Comment on above: Performed By: #### P HO, CDP, RA, PT, SED, BMPX, FREDA, MG, LD, CRP, FEBC, B12FOL, PTT, C4, CCPAB, FERI, IOCAL, CORTI, CK, C3, REJEC ####[facility] [facility] [place] [address] [id number] Lab Director: Jasbir Montalvo MD Myoglobin, Bloodon Myoglobin [Mass/Vol] 59 ng/mL 28 - 72 ng/mL [facility] No Panel Informationon 11-30 [facility] CT thoracic spine: Mild dextroscoliotic curvature. No [...] TISSUES/RETROPERITONE UM: No paraspinal mass is seen. [facility] RIS CONSOLIDATED Shanthi Mcdonough MD - 11/30/2023 [...] and degenerative disc changes L3 through S1. [employer] Radiology Study observation (narrative) [employer] Interpretation and review of laboratory results Abnormal [employer] Interpretation and review of laboratory results Abnormal [employer] [facility] [employer] No Panel InformationOrdered By: Shanthi Mcdonough on 11-30-2023 [employer] Work Phone: POC Glucose Fingerstickon Glucose [Mass/Vol] 231 mg/dL High 75 - 110 mg/dL [employer] Interpretation and review of laboratory results Abnormal [facility] Glucose [Mass/Vol] 98 mg/dL 75 - 110 mg/dL [facility] Glucose [Mass/Vol] 154 mg/dL High 75 - 110 mg/dL [facility] Interpretation and review of laboratory results Abnormal [facility] Glucose [Mass/Vol] 137 mg/dL High 75 - 110 mg/dL [facility] Interpretation and review of laboratory results Abnormal [facility] Glucose [Mass/Vol] 55 mg/dL Low 75 - 110 mg/dL [facility] Interpretation and review of laboratory results Abnormal [facility] Glucose [Mass/Vol] 48 mg/dL Low 75 - 110 mg/dL [facility] Comment on above: Critical Noted Interpretation and review of laboratory results Abnormal [facility] PTon 11-30-2023 INR Coag (PPP) [Relative time] 3.0 {INR} Normal [facility] Comment on above: Result Comment: Therapeutic Range: Moderate Anticoagulant Intensity: INR = 2.0-3.0 High Anticoagulant Intensity: INR = 2.5-3.5 Performed By: #### P HO, CDP, RA, PT, SED, BMPX, FREDA, MG, LD, CRP, FEBC, B12FOL, PTT, C4, CCPAB, FERI, IOCAL, CORTI, CK, C3, REJEC ####[facility] [address] [place], [place] [id number] lab Director: Jasbir Mnotalvo MD PT Coag (PPP) [Time] 30.0 s High 11.7-14.9 [facility] Comment on above: Performed By: #### P HO, CDP, RA, PT, SED, BMPX, FREDA, MG, LD, CRP, FEBC, B12FOL, PTT, C4, CCPAB, FERI, IOCAL, CORTI, CK, C3, REJEC ####[facility] [address] [place] [address] [id number] lab Director: Jasbir Montalvo MD Phosphoruson 11-30-2023 Phosphate [Mass/Vol] 3.5 mg/dL 2.5 - 4 .5 mg/dL [facility] Phosphorus, Inorg.on 024 Phosphorus, Inorg. 3.5 mg/dL Normal 2.5-4.5 [facility] Comment on above: Performed By: #### P HO, CDP, RA, PT, SED, BMPX, FREDA, MG, LD, CRP, FEBC, B12FOL, PTT, C4, CCPAB, FERI, IOCAL, CORTI, CK, C3, REJEC ####[facility] [address] [place], [place] [id number] lab Director: Jasbir Montalvo MD Protime-INRon 11-30-2023 INR Coag (PPP) [Relative time] 3.0 {INR} [facility] Comment on above: Therapeutic Range: Moderate Anticoagulant Intensity: INR = 2.0-3.0 High Anticoagulant Intensity: INR = 2.5-3.5 PT Coag (PPP) [Time] 30.0 s High [facility] RA Screenon 11-30-2023 RA Screen <10 Normal <14 [facility] Comment on above: Performed By: #### P HO, CDP, RA, PT, SED, BMPX, FREDA, MG, LD, CRP, FEBC, B12FOL, PTT, C4, CCPAB, FERI, IOCAL, CORTI, CK, C3, REJEC ####[facility] [place] [address] [id number] Lab Director: Jasbir Montalvo MD RHEUMATOID FACTORon 11-30-19 24 Rheumatoid factor Nephelometry Qn (S) <10 NINF [facility] Sedimentation Rateon 024 Sedimentation Rate 18 mm/Hr Normal 0-20 [facility] Comment on above: Performed By: #### P HO, CDP, RA, PT, SED, BMPX, FREDA, MG, LD, CRP, FEBC, B12FOL, PTT, C4, CCPAB, FERI, IOCAL, CORTI, CK, C3, REJEC ####[address] [id number] Lab Director: Jasbir Montalvo MD ESR Photometric method (Bld) [Velocity] 18 [facility] Specimen Rejectionon 024 Reason for rejection Unable to perform testing: Specimen quantity not sufficient. [facility] Comment on above: Performed By: #### P HO, CDP, RA, PT, SED, BMPX, FREDA, MG, LD, CRP, FEBC, B12FOL, PTT, C4, CCPAB, FERI, IOCAL, CORTI, CK, C3, REJEC #### [address] [id number] Compliance Tester: Jasbir Montalvo MD Source of sample .BLOOD [facility] Comment on above: Performed By: #### P HO, CDP, RA, PT, SED, BMPX, FREDA, MG, LD, CRP, FEBC, B12FOL, PTT, C4, CCPAB, FERI, IOCAL, CORTI, CK, C3, REJEC #### [address] [phone] Compliance Tester: Jasbir Montalvo MD Test ordered AALDO [facility] Comment on above: Performed By: #### P HO, CDP, RA, PT, SED, BMPX, FREDA, MG, LD, CRP, FEBC, B12FOL, PTT, C4, CCPAB, FERI, IOCAL, CORTI, CK, C3, REJEC #### [address] [phone] Compliance Tester: Jasbir Montalvo MD T. PALLIDUM ABon 11-30-2023 T. pallidum Ab IA Ql (S) Non-Reactive NONREACTIVE [facility] Comment on above: T. pallidum antibodies are not detected. There is no serological evidence of infection with T. pallidum (early primary syphilis cannot be excluded). Retest in 2-4 weeks if syphilis is clinically suspect. [facility] T.pallidum Ab Screenon 11-30 T.pallidum Ab Screen Non-Reactive Normal NR [facility] Comment on above: Result Comment: T. pallidum antibodies are not detected. There is no serological evidence of infection with T. pallidum (early primary syphilis cannot be excluded). Retest in 2-4 weeks if syphilis is clinically suspect. Performed By: #### P HO, CDP, RA, PT, SED, BMPX, FREDA, MG, LD, CRP, FEBC, B12FOL, PTT, C4, CCPAB, FERI, IOCAL, CORTI, CK, C3, REJEC #### [facility] [address] [place] [phone] Compliance Tester: Jasbir Montalvo MD TSH w/reflex to FT4on 2023 Thyroid Stim. Horm. 0.36 uIU/mL Normal 0.30-5.00 [facility] Comment on above: Performed By: #### P HO, CDP, RA, PT, SED, BMPX, FREDA, MG, LD, CRP, FEBC, B12FOL, PTT, C4, CCPAB, FERI, IOCAL, CORTI, CK, C3, REJEC #### [facility] [address] [place] [phone] Compliance Tester: Jasbir Montalvo MD TSH with Reflexon 11-30-2023 TSH Qn 0.36 m[IU]/L [facility] Venous Blood Gaseson 024 Body Temp. 37.0 Normal [facility] Comment on above: Performed By: #### P HO, CDP, RA, PT, SED, BMPX, FREDA, MG, LD, CRP, FEBC, B12FOL, PTT, C4, CCPAB, FERI, IOCAL, CORTI, CK, C3, REJEC #### [facility] [address] [place] [phone] Compliance Tester: Jasbir Montalvo MD Carboxy Hgb 1.6 % Normal 0-5 [facility] Comment on above: Result Comment: Reference Range: Non-Smokers 0-2% Average Smoker 2-4% Heavy Smoker <10% Performed By: #### P HO, CDP, RA, PT, SED, BMPX, FREDA, MG, LD, CRP, FEBC, B12FOL, PTT, C4, CCPAB, FERI, IOCAL, CORTI, CK, C3, REJEC #### [address] [id number] Compliance Tester: Jasbir Montalvo MD FIO2 INFORMATION NOT PROVIDED Normal [facility] Comment on above: Performed By: #### P HO, CDP, RA, PT, SED, BMPX, FREDA, MG, LD, CRP, FEBC, B12FOL, PTT, C4, CCPAB, FERI, IOCAL, CORTI, CK, C3, REJEC #### [address] [id number] Compliance Tester: Jasbir Montalvo MD HCO3 (Bld) [Moles/Vol] 26.1 mmol/L Normal 24-30 [facility] Comment on above: Performed By: #### P HO, CDP, RA, PT, SED, BMPX, FREDA, MG, LD, CRP, FEBC, B12FOL, PTT, C4, CCPAB, FERI, IOCAL, CORTI, CK, C3, REJEC #### [address] [id number] Compliance Tester: Jasbir Montalvo MD Negative Base Excess 1.1 mmol/L Normal 0.0-2.0 [facility] Comment on above: Performed By: #### P HO, CDP, RA, PT, SED, BMPX, FREDA, MG, LD, CRP, FEBC, B12FOL, PTT, C4, CCPAB, FERI, IOCAL, CORTI, CK, C3, REJEC #### [address] [id number] Compliance Tester: Jasbir Montalvo MD Oxygen saturation in Blood 84.3 % Normal 60.0-85.0 [facility] Comment on above: Performed By: #### P HO, CDP, RA, PT, SED, BMPX, FREDA, MG, LD, CRP, FEBC, B12FOL, PTT, C4, CCPAB, FERI, IOCAL, CORTI, CK, C3, REJEC #### [address] [id number] Compliance Tester: Jasbir Montalvo MD pCO2 55.2 mm Hg High 39-55 [facility] Comment on above: Performed By: #### P HO, CDP, RA, PT, SED, BMPX, FREDA, MG, LD, CRP, FEBC, B12FOL, PTT, C4, CCPAB, FERI, IOCAL, CORTI, CK, C3, REJEC #### [address] [address] Compliance Tester: Jasbir Montalvo MD pH (Bld) 7.297 [pH] Low 7.320-7.420 [facility] Comment on above: Performed By: #### P HO, CDP, RA, PT, SED, BMPX, FREDA, MG, LD, CRP, FEBC, B12FOL, PTT, C4, CCPAB, FERI, IOCAL, CORTI, CK, C3, REJEC #### [address] [address] Compliance Tester: Jasbir Montalvo MD [facility] 55.2 mm Hg High 30-50 [facility] Comment on above: Performed By: #### P HO, CDP, RA, PT, SED, BMPX, FREDA, MG, LD, CRP, FEBC, B12FOL, PTT, C4, CCPAB, FERI, IOCAL, CORTI, CK, C3, REJEC #### [address] [address] Compliance Tester: Jasbir Montalvo MD Vitamin B12 & Folateon 11-30 Cobalamin (Vitamin B12) [Mass/Vol] 397 pg/mL 232 - 1245 pg/mL [facility] Folate [Mass/Vol] 6.2 ng/mL 4.8 - PINF ng/mL [facility] CT HEAD WO CONTRASTon 2023 CT [...] Nathaly Oh MD 11/29/23 Final result Normal [facility] Comp Metabolic Pr/rfx MGon 0 11-29-2023 AST [Catalytic activity/Vol] 18 U/L Normal <40 [facility] Comment on above: Performed By: #### P HO, CDP, RA, PT, SED, BMPX, FREDA, MG, LD, CRP, FEBC, B12FOL, PTT, C4, CCPAB, FERI, IOCAL, CORTI, CK, C3, REJEC #### [address] [id number] Compliance Tester: Jasbir Montalvo MD Albumin [Mass/Vol] 3.4 g/dL Low 3.5-5.2 [facility] Comment on above: Performed By: #### P HO, CDP, RA, PT, SED, BMPX, FREDA, MG, LD, CRP, FEBC, B12FOL, PTT, C4, CCPAB, FERI, IOCAL, CORTI, CK, C3, REJEC #### [address] [id number] Compliance Tester: Jasbir Montalvo MD Albumin/Glob Ratio 1.1 Normal 1.0-2.5 [facility] Comment on above: Performed By: #### P HO, CDP, RA, PT, SED, BMPX, FREDA, MG, LD, CRP, FEBC, B12FOL, PTT, C4, CCPAB, FERI, IOCAL, CORTI, CK, C3, REJEC #### [address] [address] Compliance Tester: Jasbir Montalvo MD Alkaline Phos 93 U/L Normal 40-129 [facility] Comment on above: Performed By: #### P HO, CDP, RA, PT, SED, BMPX, FREDA, MG, LD, CRP, FEBC, B12FOL, PTT, C4, CCPAB, FERI, IOCAL, CORTI, CK, C3, REJEC #### [address] [address] Compliance Tester: Jasbir Montalvo MD ALT [Catalytic activity/Vol] 14 U/L Normal 5-41 [facility] Comment on above: Performed By: #### P HO, CDP, RA, PT, SED, BMPX, FREDA, MG, LD, CRP, FEBC, B12FOL, PTT, C4, CCPAB, FERI, IOCAL, CORTI, CK, C3, REJEC #### [facility] [address] [place] [phone] Compliance Tester: Jasbir Montalvo MD Anion gap [Moles/Vol] 11 mmol/L Normal 9-17 [facility] Comment on above: Performed By: #### P HO, CDP, RA, PT, SED, BMPX, FREDA, MG, LD, CRP, FEBC, B12FOL, PTT, C4, CCPAB, FERI, IOCAL, CORTI, CK, C3, REJEC #### [address] [address] Compliance Tester: Jasbir Montalvo MD Bilirubin [Mass/Vol] 0.3 mg/dL Normal 0.3-1.2 [facility] Comment on above: Performed By: #### P HO, CDP, RA, PT, SED, BMPX, FREDA, MG, LD, CRP, FEBC, B12FOL, PTT, C4, CCPAB, FERI, IOCAL, CORTI, CK, C3, REJEC #### [address] [address] Compliance Tester: Jasbir Montalvo MD Calcium [Mass/Vol] 8.9 mg/dL Normal 8.6-10.4 [facility] Comment on above: Performed By: #### P HO, CDP, RA, PT, SED, BMPX, FREDA, MG, LD, CRP, FEBC, B12FOL, PTT, C4, CCPAB, FERI, IOCAL, CORTI, CK, C3, REJEC #### [facility] [address] [place] [address] Compliance Tester: Jasbir Montalvo MD Chloride [Moles/Vol] 109 mmol/L High 98-107 [facility] Comment on above: Performed By: #### P HO, CDP, RA, PT, SED, BMPX, FREDA, MG, LD, CRP, FEBC, B12FOL, PTT, C4, CCPAB, FERI, IOCAL, CORTI, CK, C3, REJEC #### [address] [address] Compliance Tester: Jasbir Montalvo MD CO2 [Moles/Vol] 24 mmol/L Normal 20-31 [facility] Comment on above: Performed By: #### P HO, CDP, RA, PT, SED, BMPX, FREDA, MG, LD, CRP, FEBC, B12FOL, PTT, C4, CCPAB, FERI, IOCAL, CORTI, CK, C3, REJEC #### [address] [id number] Compliance Tester: Jasbir Montalvo MD Creatinine [Mass/Vol] 1.6 mg/dL High 0.7-1.2 [facility] Comment on above: Performed By: #### P HO, CDP, RA, PT, SED, BMPX, FREDA, MG, LD, CRP, FEBC, B12FOL, PTT, C4, CCPAB, FERI, IOCAL, CORTI, CK, C3, REJEC #### [address] [address] Compliance Tester: Jasbir Montalvo MD GFR/1.73 sq M.predicted among non-blacks MDRD (S/P/Bld) [Vol rate/Area] 48 mL/min/{1.73_m2} Low >60 [facility] Comment on above: Result [...] FERI, IOCAL, CORTI, CK, C3, REJEC #### [address] [id number] Compliance Tester: Jasbir Montalvo MD Glucose [Mass/Vol] 151 mg/dL High 70-99 [facility] Comment on above: Performed By: #### P HO, CDP, RA, PT, SED, BMPX, FREDA, MG, LD, CRP, FEBC, B12FOL, PTT, C4, CCPAB, FERI, IOCAL, CORTI, CK, C3, REJEC #### [address] [id number] Compliance Tester: Jasbir Montalvo MD Potassium [Moles/Vol] 4.1 mmol/L Normal 3.7-5.3 [facility] Comment on above: Performed By: #### P HO, CDP, RA, PT, SED, BMPX, FREDA, MG, LD, CRP, FEBC, B12FOL, PTT, C4, CCPAB, FERI, IOCAL, CORTI, CK, C3, REJEC #### [address] [id number] Compliance Tester: Jasbir Montalvo MD Protein [Mass/Vol] 6.5 g/dL Normal 6.4-8.3 [facility] Comment on above: Performed By: #### P HO, CDP, RA, PT, SED, BMPX, FREDA, MG, LD, CRP, FEBC, B12FOL, PTT, C4, CCPAB, FERI, IOCAL, CORTI, CK, C3, REJEC #### [address] [id number] Compliance Tester: Jasbir Montalvo MD Sodium [Moles/Vol] 144 mmol/L Normal 135-144 [facility] Comment on above: Performed By: #### P HO, CDP, RA, PT, SED, BMPX, FREDA, MG, LD, CRP, FEBC, B12FOL, PTT, C4, CCPAB, FERI, IOCAL, CORTI, CK, C3, REJEC #### [address] [id number] Compliance Tester: Jasbir Montalvo MD Urea nitrogen [Mass/Vol] 36 mg/dL High 8- [facility] Comment on above: Performed By: #### P HO, CDP, RA, PT, SED, BMPX, FREDA, MG, LD, CRP, FEBC, B12FOL, PTT, C4, CCPAB, FERI, IOCAL, CORTI, CK, C3, REJEC #### [facility] [address] [place], [place] [id number] Compliance Tester: Jasbir Montalvo MD Comprehensive Metabolic Pane l w/ Reflex to MGon 11-29-2023 Albumin [Mass/Vol] 3.4 g/dL Low 3.5 - 5.2 g/dL [facility] Albumin/Globulin [Mass ratio] 1.1 {ratio} 1.0 - 2.5 [facility] ALP [Catalytic activity/Vol] 93 U/L 40 - 129 U/L [facility] ALT [Catalytic activity/Vol] 14 U/L 5 - 41 U/L [facility] Anion gap [Moles/Vol] 11 mmol/L 9 - 17 mmol/L [facility] AST [Catalytic activity/Vol] 18 U/L NINF - 40 U/L [facility] Bilirubin [Mass/Vol] 0.3 mg/dL 0.3 - 1 .2 mg/dL [facility] Calcium [Mass/Vol] 8.9 mg/dL 8.6 - 10. 4 mg/dL [facility] Chloride [Moles/Vol] 109 mmol/L High 98 - 10 7 mmol/L [facility] CO2 [Moles/Vol] 24 mmol/L 20 - 31 mmol/L [facility] Creatinine [Mass/Vol] 1.6 mg/dL High 0.7 - 1.2 mg/dL [facility] GFR/1.73 sq M.predicted MDRD (S/P/Bld) [Vol rate/Area] 48 mL/min/{1.73_m2} Low - PINF [facility] Comment on above: These results [...] mg/dL High 70 - 99 mg/dL [facility] Interpretation and review of laboratory results Abnormal [facility] Potassium [Moles/Vol] 4.1 mmol/L 3.7 - 5.3 mmol/L [facility] Protein [Mass/Vol] 6.5 g/dL 6.4 - 8.3 g/dL [facility] Sodium [Moles/Vol] 144 mmol/L 135 - 144 mmol/L [facility] Urea nitrogen [Mass/Vol] 36 mg/dL High 8 - 23 mg/dL [facility] Glucose, Whole Bloodon 11-29 Glucose [Mass/Vol] 169 mg/dL High 74-100 [facility] Glucose [Mass/Vol] 236 mg/dL High 74-100 [facility] Glucose [Mass/Vol] 116 mg/dL High 74-100 [facility] Glucose [Mass/Vol] 123 mg/dL High 74-100 [facility] Glucose [Mass/Vol] 53 mg/dL Low 74-100 [facility] Glucose [Mass/Vol] 62 mg/dL Low 74-100 [facility] Glucose,Whole Bloodon 2023 Glucose [Mass/Vol] 161 mg/dL High 75-110 [facility] POC Glucose Fingerstickon Glucose [Mass/Vol] 161 mg/dL High 75 - 110 mg/dL [facility] Interpretation and review of laboratory results Abnormal [facility] XR CHEST (2 VW)on 11-29-2023 XR [...] Nathaly Oh MD 11/29/23 Final result Normal [facility] RADHA Screen w/reflexon 2023 RADHA Screen Negative Normal NEG [facility] Comment on above: Performed By: #### A XUAN, GLYHGB, CRP, SED, PE, CDP, TSHX, HIVCMB, CK, ANAX, CP, B12FOL, VD25, AHCV #### [facility] [address] [place] [address] Compliance Tester: Jasbir Montalvo MD #### AMYARELI, ALYARP #### [facility] [address] [place], [place] [id number] Compliance Tester: Samuel Olivia MD Anti-dsDNA 6.0 IU/mL Normal <10.0 [facility] Comment on above: Result Comment: Reference Range: <10.0 Negative 10.0-15.0 Equivocal >15.0 Positive Performed By: #### A XUAN, GLYHGB, CRP, SED, PE, CDP, TSHX, HIVCMB, CK, ANAX, CP, B12FOL, VD25, AHCV #### [address] [id number] Compliance Tester: Jasbir Montalvo MD #### PACHECO DUARTE #### [facility] [address] [place] [address] Compliance Tester: Samuel Olivia MD XUAN Screen 0.2 U/mL Normal <0.7 [facility] Comment on above: Result Comment: Reference Range: <0.7 Negative 0.7-1.0 Equivocal >1.0 Positive XUAN Screen includes U1RNP,RNP70,Sm,Ro(SS-A),La(SS-B),CENP,Scl-70,Carolina-1 Performed By: #### A XUAN, GLYHGB, CRP, SED, PE, CDP, TSHX, HIVCMB, CK, ANAX, CP, B12FOL, VD25, AHCV #### [address] [id number] Compliance Tester: Jasbir Montalvo MD #### PACHECO DUARTE #### [facility] [address] [place] [address] Compliance Tester: Samuel Olivia MD Ammoniaon 6 Ammonia (P) [Mass/Vol] ug/dL Low 16-60 [facility] Comment on above: Performed By: #### A MON ####[facility] [place] [address] Lab Director: Marlon Mack MD Anti-Extract Nuc Agon 2023 Anti-RNP70 0.4 U/mL Normal <7.0 [facility] Comment on above: Result Comment: Reference Range: <7.0 Negative 7.0-10.0 Equivocal >10.0 Positive Performed By: #### A XUAN, GLYHGB, CRP, SED, PE, CDP, TSHX, HIVCMB, CK, ANAX, CP, B12FOL, VD25, AHCV #### [address] [address] Compliance Tester: Jasbir Montalvo MD #### PACHECO DUARTE #### [facility] [address] [place] [address] Compliance Tester: Samuel Olivia MD Anti-Scleroderma <0.6 Normal <7.0 [facility] Comment on above: Result Comment: Reference Range: <7.0 Negative 7.0-10.0 Equivocal >10.0 Positive Performed By: #### A XUAN, GLYHGB, CRP, SED, PE, CDP, TSHX, HIVCMB, CK, ANAX, CP, B12FOL, VD25, AHCV #### [address] [address] Compliance Tester: Jasbir Montalvo MD #### PACHECO DUARTE #### [facility] [address] [place] [address] Compliance Tester: Samuel Olivia MD Anti-Sm 2.0 U/mL Normal <7.0 [facility] Comment on above: Result Comment: Reference Range: <7.0 Negative 7.0-10.0 Equivocal >10.0 Positive Performed By: #### A XUAN, GLYHGB, CRP, SED, PE, CDP, TSHX, HIVCMB, CK, ANAX, CP, B12FOL, VD25, AHCV #### [address] [address] Compliance Tester: Jasbir Montalvo MD #### PACHECO DUARTE #### [facility] [address] [place] [address] Compliance Tester: Samuel Olivia MD SSA 0.5 U/mL Normal <7.0 [facility] Comment on above: Result Comment: Reference Range: <7.0 Negative 7.0-10.0 Equivocal >10.0 Positive Performed By: #### A XUAN, GLYHGB, CRP, SED, PE, CDP, TSHX, HIVCMB, CK, ANAX, CP, B12FOL, VD25, AHCV #### [address] [id number] Compliance Tester: Jasbir Montalvo MD #### ASHVIN DUARTERP #### [facility] [address] [place] [address] Compliance Tester: Samuel Olivia MD SSB <0.3 Normal <7.0 [facility] Comment on above: Result Comment: Reference Range: <7.0 Negative 7.0-10.0 Equivocal >10.0 Positive Performed By: #### A XUAN, GLYHGB, CRP, SED, PE, CDP, TSHX, HIVCMB, CK, ANAX, CP, B12FOL, VD25, AHCV #### [address] [id number] Compliance Tester: Jasbir Montalvo MD #### ASHVIN DUARTERP #### [facility] [address] [place] [address] Compliance Tester: Samuel Olivia MD Basic Metabolic Profon 11-28 Anion gap [Moles/Vol] 9 mmol/L Normal - [facility] Comment on above: Performed By: #### B MP, MG, CDP, TROPI #### [address] [place] [address] Compliance Tester: Marlon Mack MD BUN/CRE Ratio 16 Normal - [facility] Comment on above: Performed By: #### B MP, MG, CDP, TROPI #### [facility] [address] [place] [address] Compliance Tester: Marlon Mack MD Calcium [Mass/Vol] 9.1 mg/dL Normal 8.6-10.4 [facility] Comment on above: Performed By: #### B MP, MG, CDP, TROPI #### [facility] [address] [place], [place] [id number] Compliance Tester: Marlon Mack MD Chloride [Moles/Vol] 107 mmol/L Normal 98-107 [facility] Comment on above: Performed By: #### B MP, MG, CDP, TROPI #### [facility] [address] [place] [address] Compliance Tester: Marlon Mack MD CO2 [Moles/Vol] 27 mmol/L Normal 20-31 [facility] Comment on above: Performed By: #### B MP, MG, CDP, TROPI #### [facility] [address] [place] [address] Compliance Tester: Marlon Mack MD Creatinine [Mass/Vol] 1.8 mg/dL High 0.7-1.2 [facility] Comment on above: Performed By: #### B MP, MG, CDP, TROPI #### [facility] [address] [place] [address] Compliance Tester: Marlon Mack MD GFR/1.73 sq M.predicted among non-blacks MDRD (S/P/Bld) [Vol rate/Area] 42 mL/min/{1.73_m2} Low >60 [facility] Comment on above: Result Comment: These results [...] #### B MP, MG, CDP, TROPI #### [facility] [address] [place], [place] [id number] Compliance Tester: Marlon Mack MD Glucose [Mass/Vol] 77 mg/dL Normal 70-99 [facility] Comment on above: Performed By: #### B MP, MG, CDP, TROPI #### [address] [place], [place] [id number] Compliance Tester: Marlon Mack MD Potassium [Moles/Vol] 3.9 mmol/L Normal 3.7-5.3 [facility] Comment on above: Performed By: #### B MP, MG, CDP, TROPI #### [address] [place], [place] [id number] Compliance Tester: Marlon Mack MD Sodium [Moles/Vol] 143 mmol/L Normal 135-144 [facility] Comment on above: Performed By: #### B MP, MG, CDP, TROPI #### [address] [place], [place] [id number] Compliance Tester: Marlon Mack MD Urea nitrogen [Mass/Vol] 29 mg/dL High - [facility] Comment on above: Performed By: #### B MP, MG, CDP, TROPI #### [address] [place] [address] Compliance Tester: Marlon Mack MD CBC with Diffon 11-28-2023 Abs. Basophil 0.06 k/uL Normal 0.00-0.20 [facility] Comment on above: Performed By: #### B MP, MG, CDP, TROPI #### [address] [place] [address] Compliance Tester: Marlon Mack MD Abs.Imm.Granulocyte 0.04 k/uL Normal 0.00-0.30 [facility] Comment on above: Performed By: #### B MP, MG, CDP, TROPI #### [address] [place] [address] Compliance Tester: Marlon Mack MD Abs.Neutrophil (Seg) 6.33 k/uL Normal 1.50-8.10 [facility] Comment on above: Performed By: #### B MP, MG, CDP, TROPI #### [address] [place] [address] Compliance Tester: Marlon Mack MD Basophils/100 WBC (Bld) 1 % Normal 0-2 [facility] Comment on above: Performed By: #### B MP, MG, CDP, TROPI #### [address] [place], [facility]83 Compliance Tester: Marlon Mack MD Eosinophils (Bld) [#/Vol] 0.25 10*3/uL Normal 0.00-0.44 [facility] Comment on above: Performed By: #### B MP, MG, CDP, TROPI #### [address] [place], [facility]83 Compliance Tester: Marlon Mack MD Eosinophils/100 WBC (Bld) 3 % Normal 1-4 [facility] Comment on above: Performed By: #### B MP, MG, CDP, TROPI #### [address] [place], [facility]83 Compliance Tester: Marlon Mack MD Immature granulocytes/100 WBC (Bld) 0 % Normal 0 [facility] Comment on above: Performed By: #### B MP, MG, CDP, TROPI #### [address] [place], [facility]83 Compliance Tester: Marlon Mack MD Lymphocytes (Bld) [#/Vol] 2.23 10*3/uL Normal 1.10-3.70 [facility] Comment on above: Performed By: #### B MP, MG, CDP, TROPI #### [address] [place], [place] [address]83 Compliance Tester: Marlon Mack MD Lymphocytes/100 WBC (Bld) 23 % Low 24-43 [facility] Comment on above: Performed By: #### B MP, MG, CDP, TROPI #### [address] [place], [place] [id number] Compliance Tester: Marlon Mack MD Monocytes (Bld) [#/Vol] 0.64 10*3/uL Normal 0.10-1.20 [facility] Comment on above: Performed By: #### B MP, MG, CDP, TROPI #### [address] [place], [place] [id number] Compliance Tester: Marlon Mack MD Monocytes/100 WBC (Bld) 7 % Normal 3-12 [facility] Comment on above: Performed By: #### B MP, MG, CDP, TROPI #### [address] [place], [facility]83 Compliance Tester: Marlon Mack MD Neutrophil (Seg) 66 % High 36-65 [facility] Comment on above: Performed By: #### B MP, MG, CDP, TROPI #### [address] [place], [facility]83 Compliance Tester: Marlon Mack MD Erythrocyte distribution width (RBC) [Ratio] 14.0 % Normal 11.8-14.4 [facility] Comment on above: Performed By: #### B MP, MG, CDP, TROPI #### [address] [place] [address] Compliance Tester: Marlon Mack MD Hematocrit (Bld) [Volume fraction] 48.5 % Normal 40.7-50.3 [facility] Comment on above: Performed By: #### B MP, MG, CDP, TROPI #### [address] [place] [address] Compliance Tester: Marlon Mack MD Hemoglobin (Bld) [Mass/Vol] 15.9 g/dL Normal 13.0-17.0 [facility] Comment on above: Performed By: #### B MP, MG, CDP, TROPI #### [address] [place], [facility]83 Compliance Tester: Marlon Mack MD MCH (RBC) [Entitic mass] 31.2 pg Normal 25.2-33.5 [facility] Comment on above: Performed By: #### B MP, MG, CDP, TROPI #### [address] [place], [facility]83 Compliance Tester: Marlon Mack MD MCHC (RBC) [Mass/Vol] 32.8 g/dL Normal 28.4-34.8 [facility] Comment on above: Performed By: #### B MP, MG, CDP, TROPI #### [address] [place], [facility]83 Compliance Tester: Marlon Mack MD MCV (RBC) [Entitic vol] 95.3 fL Normal 82.6-102.9 [facility] Comment on above: Performed By: #### B MP, MG, CDP, TROPI #### [address] [place], [facility]83 Compliance Tester: Marlon Mack MD NRBC Automated 0.0 per 100 WBC Normal 0.0 [facility] Comment on above: Performed By: #### B MP, MG, CDP, TROPI #### [address] [place] [address] Compliance Tester: Marlon Mack MD Platelet mean volume (Bld) [Entitic vol] 9.9 fL Normal 8.1-13.5 [facility] Comment on above: Performed By: #### B MP, MG, CDP, TROPI #### [facility] [address] [place], [place] [id number] Compliance Tester: Marlon Mack MD Platelets (Bld) [#/Vol] 233 10*3/uL Normal 138-453 [facility] Comment on above: Performed By: #### B MP, MG, CDP, TROPI #### [facility] [address] [place] [address] Compliance Tester: Marlon Mack MD RBC (Bld) [#/Vol] 5.09 10*6/uL Normal 4.21-5.77 [facility] Comment on above: Performed By: #### B MP, MG, CDP, TROPI #### [facility] [address] [place], [place] [id number] Compliance Tester: Marlon Mack MD WBC (Bld) [#/Vol] 9.2 10*3/uL Normal 3.5-11.3 [facility] Comment on above: Performed By: #### B MP, MG, CDP, TROPI #### [facility] [address] [place] [address] Compliance Tester: Marlon Mack MD Glucose, Whole Bloodon 11-28 Glucose [Mass/Vol] 115 mg/dL High 74-100 [facility] Glucose [Mass/Vol] 81 mg/dL Normal 74-100 [facility] Magnesiumon 11-28-2023 Magnesium [Mass/Vol] 2.5 mg/dL Normal 1.6-2.6 [facility] Comment on above: Performed By: #### B MP, MG, CDP, TROPI #### [facility] [address] [place] [address] Compliance Tester: Marlon Mack MD Myasthenia Grav Pnlon 2023 Acetylchol Bind Ab 0.0 nmol/L Normal 0.0-0.4 [facility] Comment on above: Result Comment: (NOT [...] developed and its performance characteristics determined by [facility]. It has not been cleared or approved by the [place] Food and Drug Administration. This test was performed in a CLIA certified laboratory and is intended for clinical purposes. Performed By: #### A XUAN, GLYHGB, CRP, SED, PE, CDP, TSHX, HIVCMB, CK, ANAX, CP, B12FOL, VD25, AHCV #### [address] [place] [address] Compliance Tester: Jasbir Montalvo MD #### PACHECO DUARTE #### [facility] [address] [place] [address] Compliance Tester: Samuel Olivia MD Acetylchol Block Ab 0 % Normal 0-26 [facility] Comment on above: Result Comment: (NOT [...] developed and its performance characteristics determined by [facility]. It has not been cleared or approved by the [place] Food and Drug Administration. This test was performed in a CLIA certified laboratory and is intended for clinical purposes. Performed By: #### A XUAN, GLYHGB, CRP, SED, PE, CDP, TSHX, HIVCMB, CK, ANAX, CP, B12FOL, VD25, AHCV #### [facility] [place], [place] [id number] Compliance Tester: Jasbir Montalvo MD #### PACHECO DUARTE #### [facility] [address] [place] [address] Compliance Tester: Samuel Olivia MD Striated Musc Ab IgG <1:40 Normal <1:[address] [facility] Comment on above: Result Comment: [...] developed and its performance characteristics determined by [facility]. It has not been cleared or approved by the [place] Food and Drug Administration. This test was performed in a CLIA certified laboratory and is intended for clinical purposes. Performed By: #### A XUAN, GLYHGB, CRP, SED, PE, CDP, TSHX, HIVCMB, CK, ANAX, CP, B12FOL, VD25, AHCV #### [facility] [address] [place], [place] [id number] Compliance Tester: Jasbir Montalvo MD #### PACHECO DUARTE #### [address] [address] Compliance Tester: Samuel Olivia MD Titin Antibody 0.35 IV Normal 0.00-0.45 [facility] Comment on above: Result Comment: (NOT [...] developed and its performance characteristics determined by [facility]. It has not been cleared or approved by the [place] Food and Drug Administration. This test was performed in a CLIA certified laboratory and is intended for clinical purposes. Performed By: [facility] [address] [place] [address] Sock Mender: Uriah Prasad MD, PhD CLIA Number: [id number] Performed By: #### A XUAN, GLYHGB, CRP, SED, PE, CDP, TSHX, HIVCMB, CK, ANAX, CP, B12FOL, VD25, AHCV #### [address] [place], [place] [id number] Compliance Tester: Jasbir Montalvo MD #### PACHECO DUARTE #### [facility] [address] [place] [address] Compliance Tester: Samuel Olivia MD Thyroid Stim. Horm.on 2023 Thyroid Stim. Horm. 0.43 uIU/mL Normal 0.30-5.00 [facility] Comment on above: Performed By: #### T SH #### [facility] [address] [place] [address] Compliance Tester: Marlon Mack MD Troponinon 11-28-2023 Troponin, High Sens 25 ng/L High 0-22 [facility] Comment on above: Result Comment: High Sensitivity Troponin values cannot be compared with other Troponin methodologies. Performed By: #### T ROPI #### [facility] [address] [place] [address] Compliance Tester: Marlon Mack MD Troponin, High Sens 24 ng/L High 0-22 [facility] Comment on above: Result Comment: High Sensitivity Troponin values cannot be compared with other Troponin methodologies. Performed By: #### B MP, MG, CDP, TROPI #### [facility] [address] [place] [address] Compliance Tester: Marlon Mack MD Lyme Dis Rflex Pnlon 024 B burgdorferi Abs, Total 0.37 IV Normal <=0.90 [facility] Comment on above: Result Comment: (NOT [...] antibodies to B. burgdorferi detected. Performed By: [facility] [address] [place] [address] Sock Mender: Uriah Prasad MD, PhD CLIA Number: [id number] Performed By: #### A XUAN, GLYHGB, CRP, SED, PE, CDP, TSHX, HIVCMB, CK, ANAX, CP, B12FOL, VD25, AHCV #### [address] [address] Compliance Tester: Jasbir Montalvo MD #### ASHVIN DUARTERP #### [facility] [address] [place], [place] [id number] Compliance Tester: Samuel Olivia MD Prot. Electroph, Blon 2023 Pathologist Review: Reviewed by pathologist: Shirley Fernando M.D. Normal [facility] Comment on above: Performed By: #### A XUAN, GLYHGB, CRP, SED, PE, CDP, TSHX, HIVCMB, CK, ANAX, CP, B12FOL, VD25, AHCV #### [facility] [address] [place] [address] Compliance Tester: Jasbir Montalvo MD #### ASHVIN DUARTERP #### [facility] [address] [place], [place] [id number] Compliance Tester: Samuel Olivia MD Prot. Elect-Interp NORMAL ELECTROPHORETIC PATTERN Normal [facility] Comment on above: Performed By: #### A XUAN, GLYHGB, CRP, SED, PE, CDP, TSHX, HIVCMB, CK, ANAX, CP, B12FOL, VD25, AHCV #### [address] [address] Compliance Tester: Jasbir Montalvo MD #### PCAHECO DUARTE #### [facility] [address] [place] [address] Compliance Tester: Samuel Olivia MD B12/Folate Panelon 4 Folic Acid 7.4 ng/mL Normal 4.8-24.2 [facility] Comment on above: Performed By: #### A XUAN, GLYHGB, CRP, SED, PE, CDP, TSHX, HIVCMB, CK, ANAX, CP, B12FOL, VD25, AHCV #### [address] [address] Compliance Tester: Jasbir Montalvo MD #### ASHVIN DUARTERP #### [facility] [address] [place], [place] [id number] Compliance Tester: Samuel Olivia MD Prot. Electroph, Blon 2023 Albumin [Mass/Vol] 4.2 g/dL Normal 3.2-5.2 [facility] Comment on above: Performed By: #### A XUAN, GLYHGB, CRP, SED, PE, CDP, TSHX, HIVCMB, CK, ANAX, CP, B12FOL, VD25, AHCV #### [facility] [address] [place] [id number] Compliance Tester: Jasbir Montalvo MD #### PACHECO DUARTE #### [facility] [address] [place], [place] [id number] Compliance Tester: Samuel Olivia MD Albumin, % 59 % Normal 45-65 [facility] Comment on above: Performed By: #### A XUAN, GLYHGB, CRP, SED, PE, CDP, TSHX, HIVCMB, CK, ANAX, CP, B12FOL, VD25, AHCV #### [address] [id number] Compliance Tester: Jasbir Montalvo MD #### ASHVIN DUARTERP #### [facility] [address] [place], [place] [id number] Compliance Tester: Samuel Olivia MD Adthq-0-lmdvmzwkt 0.2 g/dL Normal 0.1-0.4 [facility] Comment on above: Performed By: #### A XUAN, GLYHGB, CRP, SED, PE, CDP, TSHX, HIVCMB, CK, ANAX, CP, B12FOL, VD25, AHCV #### [address] [address] Compliance Tester: Jasbir Montalvo MD #### ASHVIN DUARTERP #### [facility] [address] [place], [place] [id number] Compliance Tester: Samuel Olivia MD Otvwj-1-ovxygltmd,% 3 % Normal 3-6 [facility] Comment on above: Performed By: #### A XUAN, GLYHGB, CRP, SED, PE, CDP, TSHX, HIVCMB, CK, ANAX, CP, B12FOL, VD25, AHCV #### [facility] [address] [place] [address] Compliance Tester: Jasbir Montalvo MD #### PACHECO DUARTE #### [facility] [address] [place] [address] Compliance Tester: Samuel Olivia MD Erego-5-xpgjonoig 0.9 g/dL Normal 0.5-0.9 [facility] Comment on above: Performed By: #### A XUAN, GLYHGB, CRP, SED, PE, CDP, TSHX, HIVCMB, CK, ANAX, CP, B12FOL, VD25, AHCV #### [address] [address] Compliance Tester: Jasbir Montalvo MD #### PACHECO DUARTE #### [facility] [address] [place] [address] Compliance Tester: Samuel Olivia MD Tplvq-8-udhuhkgfs,% 13 % Normal 6-13 [facility] Comment on above: Performed By: #### A XUAN, GLYHGB, CRP, SED, PE, CDP, TSHX, HIVCMB, CK, ANAX, CP, B12FOL, VD25, AHCV #### [address] [address] Compliance Tester: Jasbir Montalvo MD #### PACHECO DUARTE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 Negative [facility] Comment on above: Order Comment: Sherry hu Type: BLOOD SPECIMEN Ordering Facility: [facility] Address: [address] [place] [address] Result Comment: Anti -acetylcholine receptor blocking antibody test is used as an aid in diagnosis of myasthenia gravis. A negative result cannot exclude myasthenia gravis. Clinical correlation is required. Performed By: #### A CEBAB #### [facility] [place] [id number] [address] [place] [address] Acetylcholine receptor blocking Ab/Acetylcholine Ab.total (S) [Molar fraction] <13 Normal <21 [facility] Comment on above: Order Comment: Sherry hu Type: BLOOD SPECIMEN Ordering Facility: [facility] Address: [address] [place] [address] Performed By: #### A CEBAB #### [facility] CLIA [id number] [address] [place] [address] OF BEATA CNOVon 09-19-2023 CNOV Office Visit (NREUS2 ) ANDRY PIERRE ([id number]) 1960 M Date Time Provider Department 09/19/23 11:00 AM SHANE PARHAM NREUS2 During your visit today, we recorded the following information about you: Pulse Blood pressure 82/minute 133/69 Shane Parham PA-C 09/19/2023 4:39 PM Signed [facility] - FOLLOW UP EVALUATION Say Mccormick MD [facility] [id number] Dear Say Mccormick MD: I had the pleasure of seeing Mr. iPerre for follow-up today. As you know he [...] it Current Outpatient Medications Medication Sig Insulin [place], Disposable, (BD INSULIN PEN NEEDLE UF) 29 [...] 1 tab (more content not included)... Normal [facility]20[facility] LESLYANDRY ([id number]) 1960 Date Time Provider Department 09/12/23 SHANE [...] Pt called to report he spoke with [employer] rep who determined remote was bad-pt received remote overnight. Pt still shaking (2 months) and stuttering for for 2 months, dizzy and can hardly walk - [phone]. Pranav Bhatia 09/16/2023 4:24 PM Signed Patient [...] with infarction (more content not included)... Normal [facility] José Antonio 07-07-2023 SHERYLN Telephone (NREUS2) ANDRY PIERRE ([id number]) 1960 M Date Time Provider Department 07/07/23 [...] RN 07/10/2023 9:15 AM Addendum Spoke with electroplating sales representative from Dr. Kumar's office, they [...] Status:Closed by KERWIN BRITO on 07/10/23 Normal [facility] INSULINon 02-21-2023 Insulin 9.5 uIU/mL Normal 2.6-24.9 [facility] Comment on above: Performed By: #### I NSULIN #### [facility] [address] [address] [address] Miah Buck XR LSPINE 2_3 VIEWSon [...] Date: 2023-02-21 06:[address] [facility] BNPon 02-20-2023 Natriuretic peptide B (Bld) [Mass/Vol] 52.0 pg/mL Normal <=900.0 [facility] Comment on above: Performed By: #### M G, CMP, BNP, TSH, CRP #### [facility] [address] [address] [address] Miah Buck CBC AUTO DIFFon 02-20-2023 BASO # 0.1 103/ul Normal 0.0-0.1 [facility] Comment on above: Performed By: #### A 1C #### [facility] [address] [address] [address] Miah Buck Basophils/100 WBC (Bld) 0.8 % Normal 0.2-2.0 [facility] Comment on above: Performed By: #### A 1C #### [facility] [address] [place] [address] Dr. Miah Buck EO # 0.3 103/ul Normal 0.0-0.7 [facility] Comment on above: Performed By: #### A 1C #### [facility] [address] [place] [address] Dr. Miah Buck Eosinophils/100 WBC (Bld) 3.5 % Normal 0.9-7.0 [facility] Comment on above: Performed By: #### A 1C #### [facility] [address] [place] [address] Dr. Miah Buck Erythrocyte distribution width (RBC) [Ratio] 12.7 % Normal 11.0-15.0 [facility] Comment on above: Performed By: #### A 1C #### [facility] [address] [place] [address] Dr. Miah Buck Hematocrit (Bld) [Volume fraction] 48.8 % Normal 42.0-54.0 [facility] Comment on above: Performed By: #### A 1C #### [facility] [address] [place] [address] Dr. Maih Buck Hemoglobin (Bld) [Mass/Vol] 16.8 g/dL Normal 14.0-18.0 [facility] Comment on above: Performed By: #### A 1C #### [facility] [address] [place] [address] Dr. Miah Buck IG # 0.04 10e3/ul Critically high 0.00-0.03 [facility] Comment on above: Performed By: #### A 1C #### [facility] [address] [place] [address] Dr. Miah Buck IG % 0.6 % Critically high 0.0-0.5 [facility] Comment on above: Performed By: #### A 1C #### [facility] [address] [place] [address] Dr. Miah Buck LYMPH # 1.9 103/ul Normal 1.2-3.8 [facility] Comment on above: Performed By: #### A 1C #### [facility] [address] [place] [address] Dr. Miah Buck Lymphocytes/100 WBC (Bld) 27.0 % Normal 20.5-60.0 [facility] Comment on above: Performed By: #### A 1C #### [facility] [address] [place] [address] Dr. Miah Buck MANUAL DIFF REQ NO Normal [facility] Comment on above: Performed By: #### A 1C #### [facility] [address] [place] [address] Dr. Miah Buck MCH (RBC) [Entitic mass] 31.5 pg Normal 25.9-34.0 [facility] Comment on above: Performed By: #### A 1C #### [facility] [address] [place] [address] Dr. Miah Buck MCHC (RBC) [Mass/Vol] 34.4 g/dL Normal 29.9-35.2 [facility] Comment on above: Performed By: #### A 1C #### [facility] [address] [place] [address] Dr. Miah Buck MCV (RBC) [Entitic vol] 91.4 fL Normal 80.0-94.0 [facility] Comment on above: Performed By: #### A 1C #### [facility] [address] [place] [address] Dr. Miah Buck MONO # 0.4 103/ul Normal 0.3-0.8 [facility] Comment on above: Performed By: #### A 1C #### [facility] [address] [place] [address] Dr. Miah Buck Monocytes/100 WBC (Bld) 5.5 % Normal 1.7-12.0 [facility] Comment on above: Performed By: #### A 1C #### [facility] [address] [place] [address] Dr. Maih Buck NEUT # 4.5 103/ul Normal 1.4-6.5 [facility] Comment on above: Performed By: #### A 1C #### [facility] [address] [address] [address] Miah Buck Neutrophils/100 WBC (Bld) 62.6 % Normal 43.0-75.0 [facility] Comment on above: Performed By: #### A 1C #### [facility] [address] [address] [address] Miah Buck Platelet mean volume (Bld) [Entitic vol] 10.6 fL Normal 9.5-13.5 [facility] Comment on above: Performed By: #### A 1C #### [facility] [address] [address] [address] Miah Buck PLT 204 103/ul Normal 150-450 [facility] Comment on above: Performed By: #### A 1C #### [facility] [address] [place] [address] Dr. Miah Buck RBC 5.34 106/ul Normal 4.70-6.[address] [facility] Comment on above: Performed By: #### A 1C #### [facility] [address] [place] [address] Dr. Miah Buck WBC 7.2 103/ul Normal 4.0-11.0 [facility] Comment on above: Performed By: #### A 1C #### [facility] [address] [place] [address] Dr. Miah Buck DIRECT LDLon 02-20-2023 Cholesterol in LDL [Mass/Vol] 173 mg/dL Normal [facility] Comment on above: Performed By: #### A 1C #### [facility] [address] [place] [address] Dr. Miah Buck DLDL NORMAL SEE BELOW Normal [facility] Comment on above: Result Comment: <100 mg/dl OPTIMAL 100 - 129 mg/dl NEAR OR ABOVE OPTIMAL 130 - 159 mg/dl BORDERLINE HIGH 160 - 189 mg/dl HIGH >190 mg/dl VERY HIGH Performed By: #### A 1C #### [facility] [address] [place] [address] Dr. Miah Buck FREE T3on 02-20-2023 FREE T3 1.75 pg/mlL Critically low 2.18-3.98 [facility] Comment on above: Performed By: #### A 1C #### [facility] [address] [address] [address] Miah Buck GLYCOHEMOGLOBIN A1Con 2022 ADA RECOMMENDATION SEE BELOW Normal [facility] Comment on above: Result Comment: ADA RECOMMENDED LIMIT 4.0 - 6.0 ADA THERAPEUTIC TARGET < 7.0 ACTION SUGGESTED > 7.0 Performed By: #### A 1C #### [facility] [address] [address] [address] Miah Buck Glucose [Mass/Vol] 298 mg/dL Normal [facility] Comment on above: Performed By: #### A 1C #### [facility] [address] [address] [address] Miah Buck HbA1c (Bld) [Mass fraction] 12.0 % Critically high 4.5-6.2 [facility] Comment on above: Performed By: #### A 1C #### [facility] [address] [address] [address] Miah Buck LIPID PROFILEon 02-20-2023 CHOL-HDL RATIO NORM SEE BELOW Normal [facility] Comment on above: Result Comment: 3.3 - 4.4 LOW RISK 4.4 - 7.1 AVERAGE RISK 7.1 - 11.0 MODERATE RISK >11.0 HIGH RISK Performed By: #### A 1C #### [facility] [address] [address] [address] Miah Buck Cholesterol [Mass/Vol] 303 mg/dL Critically high <=200 [facility] Comment on above: Performed By: #### A 1C #### [facility] [address] [address] [address] Miah Buck Cholesterol in HDL [Mass/Vol] 33 mg/dL Critically low 40-60 [facility] Comment on above: Performed By: #### A 1C #### [facility] [address] [address] [address] Miah Buck Cholesterol.total/Cho lesterol in HDL [Mass ratio] 9.2 {ratio} Normal [facility] Comment on above: Performed By: #### A 1C #### [facility] [address] [address] [address] Miah Buck HDL NORMAL > or = 60 mg/dl - LO W CARDIOVASCULAR RISK <40 mg/dl - HIGH CARDIOVASCULAR RISK Normal [facility] Comment on above: Performed By: #### A 1C #### [facility] [address] [address] [address] Miah Buck Triglyceride [Mass/Vol] 454 mg/dL Critically high <=150 [facility] Comment on above: Performed By: #### A 1C #### [facility] [address] [address] [address] Miah Buck VLDL CALC 90.8 mg/dL Normal [facility] Comment on above: Performed By: #### A 1C #### [facility] [address] [place] [address] Dr. Miah Buck PROF 14(COMP METB)on 023 Albumin [Mass/Vol] 3.5 g/dL Normal 3.4-5.0 [facility] Comment on above: Performed By: #### A 1C #### [facility] [address] [place] [address] Dr. Miah Buck Albumin/Globulin [Mass ratio] 0.7 {ratio} Normal [facility] Comment on above: Performed By: #### A 1C #### [facility] [address] [place] [address] Dr. Miah Buck ALP [Catalytic activity/Vol] 146 U/L Critically high 46-116 [facility] Comment on above: Performed By: #### A 1C #### [facility] [address] [address] [address] Miah Buck ALT [Catalytic activity/Vol] 40 U/L Normal 16-63 [facility] Comment on above: Performed By: #### A 1C #### [facility] [address] [place] [address] Dr. Miah Buck Anion gap [Moles/Vol] 13.8 mmol/L Normal [facility] Comment on above: Performed By: #### A 1C #### [facility] [address] [address] [address] Miah Buck AST [Catalytic activity/Vol] 19 U/L Normal 15-37 [facility] Comment on above: Performed By: #### A 1C #### [facility] [address] [address] [address] Miah Buck Bilirubin [Mass/Vol] 0.4 mg/dL Normal 0.2-1.0 [facility] Comment on above: Performed By: #### A 1C #### [facility] [address] [address] [address] Miah Buck Calcium [Mass/Vol] 9.1 mg/dL Normal 8.5-10.1 [facility] Comment on above: Performed By: #### A 1C #### [facility] [address] [place] [address] Dr. Miah Buck Chloride [Moles/Vol] 99 mmol/L Normal 98-107 [facility] Comment on above: Performed By: #### A 1C #### [facility] [address] [address] [address] Miah Buck CO2 [Moles/Vol] 27.6 mmol/L Normal 21.0-32.0 [facility] Comment on above: Performed By: #### A 1C #### [facility] [address] [address] [address] Miah Buck Creatinine [Mass/Vol] 1.88 mg/dL Critically high 0.70-1.30 [facility] Comment on above: Performed By: #### A 1C #### [facility] [address] [address] [address] Miah Buck EGFR-AF CITIZEN OF [place] 44 mL/min/1.73m2 Critically low >=60 [facility] Comment on above: Performed By: #### A 1C #### [facility] [address] [address] [address] Miah Buck EGFR-NON AF CITIZEN OF [place] 37 mL/min/1.73m2 Critically low >=[address] [facility] Comment on above: Performed By: #### A 1C #### [facility] [address] [address] [address] Miah Buck Globulin (S) [Mass/Vol] 4.7 g/dL Normal [facility] Comment on above: Performed By: #### A 1C #### [facility] [address] [address] [address] Miah Buck Glucose [Mass/Vol] 524 mg/dL Critically high 74-106 [facility] Comment on above: Performed By: #### A 1C #### [facility] [address] [address] [address] Miah Buck Potassium [Moles/Vol] 4.4 mmol/L Normal 3.5-5.1 [facility] Comment on above: Performed By: #### A 1C #### [facility] [address] [place] [address] Dr. Miah Buck Protein [Mass/Vol] 8.2 g/dL Normal 6.4-8.2 [facility] Comment on above: Performed By: #### A 1C #### [facility] [address] [place] [address] Dr. Miah Buck Sodium [Moles/Vol] 136 mmol/L Normal 136-145 [facility] Comment on above: Performed By: #### A 1C #### [facility] [address] [place] [address] Dr. Miah Buck Urea nitrogen [Mass/Vol] 21.0 mg/dL Critically high 7.0-18.0 [facility] Comment on above: Performed By: #### A 1C #### [facility] [address] [place] [address] Dr. Miah Buck Urea nitrogen/Creatinine [Mass ratio] 11.2 mg/mg Normal [facility] Comment on above: Performed By: #### A 1C #### [facility] [address] [place] [address] Dr. Miah Buck T4on 02-20-2023 T4 [Mass/Vol] 7.80 ug/dL Normal 4.50-12.10 [facility] Comment on above: Performed By: #### A 1C #### [facility] [address] [place] [address] Dr. Miah Buck TSHon 02-20-2023 TSH 0.740 uIU/mL Normal 0.358-3.740 [facility] Comment on above: Performed By: #### A 1C #### [facility] [address] [place] [address] Dr. Miah Buck URIC ACID SERUMon 02-20-2023 Urate [Mass/Vol] 8.2 mg/dL Critically high 3.5-7.2 [facility] Comment on above: Performed By: #### A 1C #### [facility] [address] [place] [address] Dr. Miah Buck CREATININEon 01-07-2023 Creatinine [Mass/Vol] 2.09 mg/dL Critically high 0.70-1.30 [facility] Comment on above: Performed By: #### M G, CMP, BNP, TSH, CRP #### [facility] [address] [place] [address] Dr. Miah Buck EGFR-AF [place]IZ[place] 39 mL/min/1.73m2 Critically low >=60 [facility] Comment on above: Performed By: #### M G, CMP, BNP, TSH, CRP #### [facility] [address] [place] [address] Dr. Miah Buck EGFR-NON AF [place]IZ[place] 32 mL/min/1.73m2 Critically low >=60 [facility] Comment on above: Performed By: #### M G, CMP, BNP, TSH, CRP #### [facility] [address] [place] [address] ABD/PELV W CONon [...] Date: 2023-01-07 10:[address] [facility] Covid-19 PCR (CVDTB)on SARS-CoV-2 (COVID-19) RNA EMMY+probe Ql (Unsp spec) Not detected Normal NOT DETECTED [facility] Comment on above: Result Comment: This test is not yet approved or cleared by the [place] FDA. When there are no FDA-approved or cleared tests available, and other criteria are met, FDA can make tests available under an emergency access mechanism called an Emergency Use Authorization (EUA). The EUA for this test is supported by the [place] of Health and Human Service's (HHS's) declaration [...] CMP, BNP, TSH, CRP #### [facility] [address] [address] [address] HEAD WO CONon [...] Date: 2022-05-29 09:41 Normal [address] [facility] CT NECK ST WO CONon [...] Date: 2022-05-29 10:[address] Normal [address] [facility] VIT D 25-OH LABCORPon 2021 Vitamin D, 25-Hydroxy 27.6 ng/mL Critically low 30.0-100.[address] [facility] Comment on above: Result Comment: Rima min D deficiency has been defined by the [place] of [employer] and an Endocrine Society practice guideline as a level of serum 25-OH vitamin D less than 20 ng/mL (1,2). The Endocrine Society went on to further define vitamin D insufficiency as a level between 21 and 29 ng/mL (2). 1. IOM ([place] of Medicine). 2010. Dietary reference intakes for calcium and D. [place]: The National Academies Press. 2. Su MF, Agapito HOSKINS, Mason KAUFMAN, et al. Evaluation, treatment, and prevention of vitamin D deficiency: an Endocrine Society clinical practice guideline. JCEM. 2010; 96(7):1911-30. Performed By: #### V ITADLC #### [facility] [address] [address] [address] Miah Buck XR CHEST 2 Von [...] Date: 2022-05-24 07:[address] [facility] BNPon 05-23-2022 Natriuretic peptide B (Bld) [Mass/Vol] 53.0 pg/mL Normal <=900.[address] [facility] Comment on above: Performed By: #### M G, CMP, BNP, TSH, CRP #### [facility] [address] [address] [address] Miah Buck CBC AUTO DIFFon 05-23-2022 BASO # 0.1 103/ul Normal 0.0-0.1 [facility] Comment on above: Performed By: #### A 1C #### [facility] [address] [place] [address] Dr. Miah Buck Basophils/100 WBC (Bld) 0.7 % Normal 0.2-2.0 [facility] Comment on above: Performed By: #### A 1C #### [facility] [address] [place] [address] Dr. Miah Buck EO # 0.3 103/ul Normal 0.0-0.7 [facility] Comment on above: Performed By: #### A 1C #### [facility] [address] [place] [address] Dr. Miah Buck Eosinophils/100 WBC (Bld) 4.0 % Normal 0.9-7.0 [facility] Comment on above: Performed By: #### A 1C #### [facility] [address] [place] [address] Dr. Miah Buck Erythrocyte distribution width (RBC) [Ratio] 13.4 % Normal 11.0-15.0 [facility] Comment on above: Performed By: #### A 1C #### [facility] [address] [place] [address] Dr. Miah Buck Hematocrit (Bld) [Volume fraction] 46.1 % Normal 42.0-54.0 [facility] Comment on above: Performed By: #### A 1C #### [facility] [address] [place] [address] Dr. Miah Buck Hemoglobin (Bld) [Mass/Vol] 15.5 g/dL Normal 14.0-18.0 [facility] Comment on above: Performed By: #### A 1C #### [facility] [address] [place] [address] Dr. Miah Buck IG # 0.03 10e3/ul Normal 0.00-0.03 [facility] Comment on above: Performed By: #### A 1C #### [facility] [address] [place] [address] Dr. Miah Buck IG % 0.4 % Normal 0.0-0.5 [facility] Comment on above: Performed By: #### A 1C #### [facility] [address] [place] [address] Dr. Miah Buck LYMPH # 2.0 103/ul Normal 1.2-3.8 [facility] Comment on above: Performed By: #### A 1C #### [facility] [address] [place] [address] Dr. Miah Buck Lymphocytes/100 WBC (Bld) 28.1 % Normal 20.5-60.0 [facility] Comment on above: Performed By: #### A 1C #### [facility] [address] [place] [address] Dr. Miah Buck MANUAL DIFF REQ NO Normal [facility] Comment on above: Performed By: #### A 1C #### [facility] [address] [place] [address] Dr. Miah Buck MCH (RBC) [Entitic mass] 31.8 pg Normal 25.9-34.0 [facility] Comment on above: Performed By: #### A 1C #### [facility] [address] [place] [address] Dr. Miah Buck MCHC (RBC) [Mass/Vol] 33.6 g/dL Normal 29.9-35.2 [facility] Comment on above: Performed By: #### A 1C #### [facility] [address] [place] [address] Dr. Miah Buck MCV (RBC) [Entitic vol] 94.7 fL Critically high 80.0-94.0 [facility] Comment on above: Performed By: #### A 1C #### [facility] [address] [place] [address] Dr. Miah Buck MONO # 0.5 103/ul Normal 0.3-0.8 [facility] Comment on above: Performed By: #### A 1C #### [facility] [address] [place] [address] Dr. Miah Buck Monocytes/100 WBC (Bld) 7.1 % Normal 1.7-12.0 [facility] Comment on above: Performed By: #### A 1C #### [facility] [address] [place] [address] Dr. Miah Buck NEUT # 4.3 103/ul Normal 1.4-6.5 [facility] Comment on above: Performed By: #### A 1C #### [facility] [address] [place] [address] Dr. Miah Buck Neutrophils/100 WBC (Bld) 59.7 % Normal 43.0-75.0 [facility] Comment on above: Performed By: #### A 1C #### [facility] [address] [place] [address] Dr. Miah Buck Platelet mean volume (Bld) [Entitic vol] 10.6 fL Normal 9.5-13.5 [facility] Comment on above: Performed By: #### A 1C #### [facility] [address] [place] [address] Dr. Miah Buck PLT 209 103/ul Normal 150-[address] [facility] Comment on above: Performed By: #### A 1C #### [facility] [address] [place] [address] Dr. Miah Buck RBC 4.87 106/ul Normal 4.70-6.[address] [facility] Comment on above: Performed By: #### A 1C #### [facility] [address] [place] [address] Dr. Miah Buck WBC 7.2 103/ul Normal 4.0-11.[address] [facility] Comment on above: Performed By: #### A 1C #### [facility] [address] [place] [address] Dr. Miah Buck CRPon 05-23-2022 CRP 1.0 mg/dL Normal <=1.0 [facility] Comment on above: Performed By: #### M G, CMP, BNP, TSH, CRP #### [facility] [address] [place] [address] Dr. Miah Buck ECHOCARDIO M/2D COMPLETEon 0 05-23-2022 ECHOCARDIO M/2D COMPLETE Patient: ANDRY PIERRE Exam Date: 05/23/2022 : 1960 Gender:M Ordering : SOFYA HIDALGO [facility] Admission #: [id number] Family : DR WESTONLAS ANNY . Order #: [id number] CLICK HERE TO VIEW EXAM ECHOCARDIOGRAM REPORT [...] 6. No pericardial effusion. Dictated by: Haja Peacre M.D. on 05/23/2022 at 18:37 Approved by: Haja Pearce M.D. on 05/23/2022 at 18:40 Normal [facility] MAGNESIUMon 05-23-2022 Magnesium [Mass/Vol] 2.3 mg/dL Normal 1.8-2.4 [facility] Comment on above: Performed By: #### M G, CMP, BNP, TSH, CRP #### [facility] [address] [place] [address] Dr. Miah Buck PROF 14(COMP METB)on 022 Albumin [Mass/Vol] 3.6 g/dL Normal 3.4-5.0 [facility] Comment on above: Performed By: #### M G, CMP, BNP, TSH, CRP #### [facility] [address] [place] [address] Dr. Miah Buck Albumin/Globulin [Mass ratio] 0.9 {ratio} Normal [facility] Comment on above: Performed By: #### M G, CMP, BNP, TSH, CRP #### [facility] [address] [place] [address] Dr. Miah Buck ALP [Catalytic activity/Vol] 113 U/L Normal 46-116 [facility] Comment on above: Performed By: #### M G, CMP, BNP, TSH, CRP #### [facility] [address] [place] [address] Dr. Miah Buck ALT [Catalytic activity/Vol] 34 U/L Normal 16-63 [facility] Comment on above: Performed By: #### M G, CMP, BNP, TSH, CRP #### [facility] [address] [place] [address] Dr. Miah Buck Anion gap [Moles/Vol] 10.7 mmol/L Normal [facility] Comment on above: Performed By: #### M G, CMP, BNP, TSH, CRP #### [facility] [address] [place] [address] Dr. Miah Buck AST [Catalytic activity/Vol] 23 U/L Normal 15-37 [facility] Comment on above: Performed By: #### M G, CMP, BNP, TSH, CRP #### [facility] [address] [place] [address] Dr. Miah Buck Bilirubin [Mass/Vol] 0.3 mg/dL Normal 0.2-1.0 [facility] Comment on above: Performed By: #### M G, CMP, BNP, TSH, CRP #### [facility] [address] [address] [address] Miah Buck Calcium [Mass/Vol] 8.9 mg/dL Normal 8.5-10.1 [facility] Comment on above: Performed By: #### M G, CMP, BNP, TSH, CRP #### [facility] [address] [address] [address] Miah Buck Chloride [Moles/Vol] 105 mmol/L Normal 98-107 [facility] Comment on above: Performed By: #### M G, CMP, BNP, TSH, CRP #### [facility] [address] [place] [address] Dr. Miah Buck CO2 [Moles/Vol] 26.5 mmol/L Normal 21.0-32.0 [facility] Comment on above: Performed By: #### M G, CMP, BNP, TSH, CRP #### [facility] [address] [place] [address] Dr. Miah Buck Creatinine [Mass/Vol] 1.73 mg/dL Critically high 0.70-1.30 [facility] Comment on above: Performed By: #### M G, CMP, BNP, TSH, CRP #### [facility] [address] [place] [address] Dr. Miah Buck EGFR-AF [place]IZ[place] 49 mL/min/1.73m2 Critically low >=60 [facility] Comment on above: Performed By: #### M G, CMP, BNP, TSH, CRP #### [facility] [address] [place] [address] Dr. Miah Buck EGFR-NON AF CITIZEN [place] 40 mL/min/1.73m2 Critically low >=60 [facility] Comment on above: Performed By: #### M G, CMP, BNP, TSH, CRP #### [facility] [address] [place] [address] Dr. Miah Buck Globulin (S) [Mass/Vol] 4.0 g/dL Normal [facility] Comment on above: Performed By: #### M G, CMP, BNP, TSH, CRP #### [facility] [address] [address] [address] Miah Buck Glucose [Mass/Vol] 285 mg/dL Critically high 74-106 [facility] Comment on above: Performed By: #### M G, CMP, BNP, TSH, CRP #### [facility] [address] [place] [address] Dr. Miah Buck Potassium [Moles/Vol] 4.2 mmol/L Normal 3.5-5.1 [facility] Comment on above: Performed By: #### M G, CMP, BNP, TSH, CRP #### [facility] [address] [address] [address] Miah Buck Protein [Mass/Vol] 7.6 g/dL Normal 6.4-8.2 [facility] Comment on above: Performed By: #### M G, CMP, BNP, TSH, CRP #### [facility] [address] [place] [address] Dr. Miah Buck Sodium [Moles/Vol] 138 mmol/L Normal 136-145 [facility] Comment on above: Performed By: #### M G, CMP, BNP, TSH, CRP #### [facility] [address] [place] [address] Dr. Miah Buck Urea nitrogen [Mass/Vol] 23.0 mg/dL Critically high 7.0-18.0 [facility] Comment on above: Performed By: #### M G, CMP, BNP, TSH, CRP #### [facility] [address] [place] [address] Dr. Miah Buck Urea nitrogen/Creatinine [Mass ratio] 13.3 mg/mg Normal [facility] Comment on above: Performed By: #### M G, CMP, BNP, TSH, CRP #### [facility] [address] [place] [address] Dr. Miah Buck TSHon 05-23-2022 TSH 0.714 uIU/mL Normal 0.358-3.740 [facility] Comment on above: Performed By: #### M G, CMP, BNP, TSH, CRP #### [facility] [address] [place], [place] [address] Dr. Miah Buck VITAMIN B12on 05-23-2022 Cobalamin (Vitamin B12) [Mass/Vol] 930.0 pg/mL Normal 193.0-986.0 [facility] Comment on above: Performed By: #### V ITB12 #### [facility] [address] [address] [address] Miah Buck BASIC METABOLIC PANELon 07-07 Calcium [Mass/Vol] 8.3 mg/dL Low 8.6-10.3 [facility] Comment on above: Order Comment: No: D o not add to previous draw Performed By: #### 1 0070, 90633, 50296, 81689 #### [facility] [address] [place] [address], [facility] Chloride [Moles/Vol] 105 mmol/L Normal 98-107 [facility] Comment on above: Order Comment: No: D o not add to previous draw Performed By: #### 1 0070, 80458, 10266, 86348 #### [facility] [address] [place] [address], [place] CO2 [Moles/Vol] 22 mmol/L Normal 21-31 [facility] Comment on above: Order Comment: No: D o not add to previous draw Performed By: #### 1 0070, 08881, 99364, 01955 #### [facility] [address] [place] [address], [place] Creatinine [Mass/Vol] 1.31 mg/dL High 0.70-1.30 [facility] Comment on above: Order Comment: No: D o not add to previous draw Performed By: #### 1 0070, 45137, 11786, 13551 #### [facility] [address] [place] [address], [place] eGFR- non- 56 ml/min/1.73sq m Abnormal >60 [facility] Comment on above: Order Comment: No: D o not add to previous draw Performed By: #### 1 0070, 10789, 94640, 77457 #### [facility] [address] [place] [address], [place] GFR/1.73 sq M.predicted among blacks MDRD (S/P/Bld) [Vol rate/Area] mL/min/{1.73_m2} Normal >60 [facility] Comment on above: Order Comment: No: D o not add to previous draw Performed By: #### 1 0070, 40521, 16177, 63275 #### [facility] [address] [place] [address], [place] Glucose [Mass/Vol] 231 mg/dL High 70-100 [facility] Comment on above: Order Comment: No: D o not add to previous draw Performed By: #### 1 0070, 64857, 39485, 26929 #### [facility] [address] [place] [address], [place] Potassium [Moles/Vol] 3.6 mmol/L Normal 3.5-5.1 [facility] Comment on above: Order Comment: No: D o not add to previous draw Performed By: #### 1 0070, 26854, 00693, 67037 #### [facility] [address] [place] [address], [place] Sodium [Moles/Vol] 139 mmol/L Normal 136-145 [facility] Comment on above: Order Comment: No: D o not add to previous draw Performed By: #### 1 0070, 55708, 62050, 33865 #### [facility] [address] [place] [address], [place] Urea nitrogen [Mass/Vol] 17 mg/dL Normal 7-25 [facility] Comment on above: Order Comment: No: D o not add to previous draw Performed By: #### 1 0070, 69267, 49377, 48921 #### [facility] [address] [facility] [place] [address], [facility] CBC W/DIFFon 07-27-2021 ABS IMM GRANS 0.1 10*3/uL Normal 0.0-0.2 [facility] Comment on above: Performed By: #### 1 0070, 32144, 78531, 26022 #### [facility] [address] [facility] [place] [address], [facility] ABS NEUTROPHILS 10.2 10*3/uL High 1.6-7.6 [facility] Comment on above: Performed By: #### 1 0070, 74121, 62062, 96689 #### [facility] [address] [place] [address], [facility] Basophils (Bld) [#/Vol] 0.0 10*3/uL Normal 0.0-0.2 [facility] Comment on above: Performed By: #### 1 0070, 59748, 98993, 18636 #### [facility] [address] [place] [address], [facility] Basophils/100 WBC (Bld) 0.3 % Normal 0.0-1.0 [facility] Comment on above: Performed By: #### 1 0070, 59579, 64842, 85326 #### [facility] [address] [facility] [place] [address], [facility] Eosinophils (Bld) [#/Vol] 0.0 10*3/uL Normal 0.0-0.5 [facility] Comment on above: Performed By: #### 1 0070, 79731, 09122, 65579 #### [facility] [address] [place] [address], [facility] Eosinophils/100 WBC (Bld) 0.0 % Normal 0.0-6.0 [facility] Comment on above: Performed By: #### 1 0070, 41276, 33454, 77533 #### [facility] [address] [place] [address], [facility] Erythrocyte distribution width (RBC) [Ratio] 13.2 % Normal 11.5-15.0 [facility] Comment on above: Performed By: #### 1 0070, 47211, 25550, 93445 #### [facility] [address] [place] [address], [facility] Hematocrit (Bld) [Volume fraction] 44.2 % Normal 39.0-50.0 [facility] Comment on above: Performed By: #### 1 0070, 70728, 52248, 51835 #### [facility] [address] [place] [address], [facility] Hemoglobin (Bld) [Mass/Vol] 14.9 g/dL Normal 13.0-17.0 [facility] Comment on above: Performed By: #### 1 0070, 53329, 03324, 96696 #### [facility] [address] [place] [address], [facility] IMMATURE GRANS 0.7 % Normal 0.0-1.0 [facility] Comment on above: Performed By: #### 1 0070, 74731, 74320, 67358 #### [facility] [address] [place] [address], [facility] Lymphocytes (Bld) [#/Vol] 1.0 10*3/uL Low 1.2-4.0 [facility] Comment on above: Performed By: #### 1 0070, 52849, 83350, 85917 #### [facility] [address] [place] [address], [facility] Lymphocytes/100 WBC (Bld) 8.2 % Low 20.0-45.0 [facility] Comment on above: Performed By: #### 1 0070, 57144, 42374, 23525 #### [facility] [address] [place] [address], [facility] MCH (RBC) [Entitic mass] 31.2 pg Normal 27.0-33.0 [facility] Comment on above: Performed By: #### 1 0070, 37648, 96282, 40471 #### [facility] [address] [place] [id number], [facility] MCHC (RBC) [Mass/Vol] 33.7 g/dL Normal 32.0-35.0 [facility] Comment on above: Performed By: #### 1 0070, 43902, 88964, 10708 #### [facility] [address] [place] [address], [facility] MCV (RBC) [Entitic vol] 92.7 fL Normal 82.0-98.0 [facility] Comment on above: Performed By: #### 1 0, 44396, 99103, 34394 #### [facility] [address] [place] [address], [facility] Monocytes (Bld) [#/Vol] 0.9 10*3/uL Normal 0.1-1.0 [facility] Comment on above: Performed By: #### 1 0070, 23949, 23258, 91545 #### [facility] [address] [place] [address], [facility] MONOS 7.0 % Normal 5.0-12.0 [facility] Comment on above: Performed By: #### 1 0, 66998, 60619, 55840 #### [facility] [address] [place] [address], [facility] Neutrophils/100 WBC (Bld) 83.8 % High 40.0-72.0 [facility] Comment on above: Performed By: #### 1 0070, 40290, 17599, 66605 #### [facility] [address] [place] [address], [facility] Nucleated RBC/100 WBC (Bld) [Ratio] 0 % Normal 0-0 [facility] Comment on above: Performed By: #### 1 0070, 32439, 09675, 36411 #### [facility] [address] [place] [address], [facility] PLAT CNT 198 10*3/uL Normal 150-400 [facility] Comment on above: Performed By: #### 1 0070, 33008, 23034, 35578 #### [facility] [address] [place] [address], [facility] RBC (Bld) [#/Vol] 4.77 10*6/uL Normal 4.20-5.70 [facility] Comment on above: Performed By: #### 1 0070, 48869, 95950, 40308 #### [facility] [address] [place] [address], [facility] WBC (Bld) [#/Vol] 12.15 10*3/uL High 4.00-10.60 [facility] Comment on above: Performed By: #### 1 0070, 06459, 89885, 76615 #### [facility] [address] [place] [id number], [facility] LIVER BATTERYon 07-27-2021 Albumin [Mass/Vol] 3.3 g/dL Low 3.5-5.7 [facility] Comment on above: Order Comment: No: D o not add to previous draw Performed By: #### 1 0070, 17498, 99715, 31986 #### [facility] [address] [place] [address], [facility] ALKALINE PHOSPH 124 IU/L High 34-104 [facility] Comment on above: Order Comment: No: D o not add to previous draw Performed By: #### 1 0070, 80131, 63967, 33800 #### [facility] [address] [place] [address], [facility] ALT [Catalytic activity/Vol] 58 U/L High 7-52 [facility] Comment on above: Order Comment: No: D o not add to previous draw Performed By: #### 1 0070, 89426, 74808, 75370 #### [facility] [address] [place] [address], [facility] AST [Catalytic activity/Vol] 48 U/L High 13-39 [facility] Comment on above: Order Comment: No: D o not add to previous draw Performed By: #### 1 0070, 91752, 02773, 29926 #### [facility] [address] [place] [address], [place] Bilirubin [Mass/Vol] 0.8 mg/dL Normal 0.3-1.0 [facility] Comment on above: Order Comment: No: D o not add to previous draw Performed By: #### 1 0070, 87196, 81439, 70898 #### [facility] [address] [place] [address], [facility] Bilirubin.direct [Mass/Vol] 0.3 mg/dL High 0.0-0.2 [facility] Comment on above: Order Comment: No: D o not add to previous draw Performed By: #### 1 0070, 20714, 70365, 69453 #### [facility] [address] [place] [address], [place] Protein [Mass/Vol] 6.2 g/dL Normal 6.0-8.3 [facility] Comment on above: Order Comment: No: D o not add to previous draw Performed By: #### 1 0070, 90543, 33724, 61958 #### [facility] [address] [place] [address], [place] MAGNESIUM BLOODon 07-27-2021 Magnesium [Mass/Vol] 1.8 mg/dL Low 1.9-2.7 [facility] Comment on above: Order Comment: No: D o not add to previous draw Performed By: #### 1 0070, 63830, 47727, 76346 #### [facility] [address] [place] [address], [facility] PHOSPHORUS BLOODon 1 Phosphate [Mass/Vol] 2.9 mg/dL Normal 2.5-5.0 [facility] Comment on above: Order Comment: No: D o not add to previous draw Performed By: #### 1 0070, 51626, 22095, 42900 #### [facility] [address] [place] [address], [facility] POC GLUCOSE LABon 07-27-2021 Glucose [Mass/Vol] 260 mg/dL High 70-100 [facility] Comment on above: Performed By: #### 8 5499 #### [facility] [address] [place] [address], [facility] Glucose [Mass/Vol] 225 mg/dL High 70-100 [facility] Comment on above: Performed By: #### 1 0070, 46670, 35546, 80493 #### [facility] [address] [place] [address], [facility] PROTHROMBIN TIMEon 1 INR Coag (PPP) [Relative time] 1.22 {INR} High 0.91-1.16 [facility] Comment on above: Order Comment: No: [...] CHEST 1995;108:[id number]. Performed By: #### 1 0070, 66629, 42281, 39111 #### [facility] [address] [place] [address], [facility] PT Coag (PPP) [Time] 15.4 s High 12.3-14.8 [facility] Comment on above: Order Comment: No: D o not add to previous draw Result Comment: ALL RESULTS MUST BE INTERPRETED WITH RESPECT TO BLOOD DRAWING ARTIFACT OR DILUTION ERROR OF ANTICOAGULANT AT THE TIME OF SAMPLING. Performed By: #### 1 0070, 01570, 57816, 86536 #### [facility] [address] [place] [id number], [facility] BASIC METABOLIC PANELon 10-2 Calcium [Mass/Vol] 8.5 mg/dL Low 8.6-10.3 [facility] Comment on above: Order Comment: No: D o not add to previous draw Performed By: #### 8 5499 #### [facility] [address] [place] [address], [facility] Chloride [Moles/Vol] 108 mmol/L High 98-107 [facility] Comment on above: Order Comment: No: D o not add to previous draw Performed By: #### 8 5499 #### [facility] [address] [place] [address], [place] CO2 [Moles/Vol] 24 mmol/L Normal 21-31 [facility] Comment on above: Order Comment: No: D o not add to previous draw Performed By: #### 8 5499 #### [facility] [address] [place] [address], [place] Creatinine [Mass/Vol] 1.23 mg/dL Normal 0.70-1.30 [facility] Comment on above: Order Comment: No: D o not add to previous draw Performed By: #### 8 5499 #### [facility] [address] [place] [address], [place] eGFR- non- 60 ml/min/1.73sq m Abnormal >60 [facility] Comment on above: Order Comment: No: D o not add to previous draw Performed By: #### 8 5499 #### [facility] [address] [place] [address], [place] GFR/1.73 sq M.predicted among blacks MDRD (S/P/Bld) [Vol rate/Area] mL/min/{1.73_m2} Normal >60 [facility] Comment on above: Order Comment: No: D o not add to previous draw Performed By: #### 8 5499 #### [facility] [address] [place] [address], [place] Glucose [Mass/Vol] 141 mg/dL High 70-[address] [facility] Comment on above: Order Comment: No: D o not add to previous draw Performed By: #### 8 5499 #### [facility] [address] [place] [address], [place] Potassium [Moles/Vol] 3.5 mmol/L Normal 3.5-5.1 [facility] Comment on above: Order Comment: No: D o not add to previous draw Performed By: #### 8 5499 #### [facility] [address] [place] [address], [place] Sodium [Moles/Vol] 139 mmol/L Normal 136-145 [facility] Comment on above: Order Comment: No: D o not add to previous draw Performed By: #### 8 5499 #### [facility] [address] [place] [address], [place] Urea nitrogen [Mass/Vol] 18 mg/dL Normal 7-25 [facility] Comment on above: Order Comment: No: D o not add to previous draw Performed By: #### 8 5499 #### [facility] [address] [place] [address], [facility] CBC COMPLETE BLOOD COUNTon Erythrocyte distribution width (RBC) [Ratio] 13.2 % Normal 11.5-15.0 [facility] Comment on above: Order Comment: No: D o not add to previous draw Performed By: #### 1 0070, 36266, 96371, 65973 #### [facility] [address] [place] [address], [facility] Hematocrit (Bld) [Volume fraction] 42.7 % Normal 39.0-50.0 [facility] Comment on above: Order Comment: No: D o not add to previous draw Performed By: #### 1 0070, 45910, 46155, 95123 #### [facility] [address] [place] [address], [facility] Hemoglobin (Bld) [Mass/Vol] 14.5 g/dL Normal 13.0-17.0 [facility] Comment on above: Order Comment: No: D o not add to previous draw Performed By: #### 1 0070, 46212, 21281, 26860 #### [facility] [address] [place] [address], [facility] MCH (RBC) [Entitic mass] 32.0 pg Normal 27.0-33.0 [facility] Comment on above: Order Comment: No: D o not add to previous draw Performed By: #### 1 0070, 74736, 58335, 80646 #### [facility] [address] [place] [address], [place] MCHC (RBC) [Mass/Vol] 34.0 g/dL Normal 32.0-35.0 [facility] Comment on above: Order Comment: No: D o not add to previous draw Performed By: #### 1 0070, 94739, 84012, 44875 #### [facility] [address] [place] [address], [facility] MCV (RBC) [Entitic vol] 94.3 fL Normal 82.0-98.0 [facility] Comment on above: Order Comment: No: D o not add to previous draw Performed By: #### 1 0070, 74156, 94079, 36867 #### [facility] [address] [place] [id number], [facility] Nucleated RBC/100 WBC (Bld) [Ratio] 0 % Normal 0-0 [facility] Comment on above: Order Comment: No: D o not add to previous draw Performed By: #### 1 0070, 38310, 93278, 11758 #### [facility] [address] [place] [address], [facility] PLAT CNT 179 10*3/uL Normal 150-400 [facility] Comment on above: Order Comment: No: D o not add to previous draw Performed By: #### 1 0070, 69285, 53369, 38675 #### [facility] [address] [place] [address], [facility] RBC (Bld) [#/Vol] 4.53 10*6/uL Normal 4.20-5.70 [facility] Comment on above: Order Comment: No: D o not add to previous draw Performed By: #### 1 0070, 63032, 02409, 75593 #### [facility] [address] [place] [id number], [facility] WBC (Bld) [#/Vol] 7.86 10*3/uL Normal 4.00-10.60 [facility] Comment on above: Order Comment: No: D o not add to previous draw Performed By: #### 1 0070, 63262, 81281, 63261 #### [facility] [address] [place] [address], [facility] LIVER BATTERYon 07-26-2021 Albumin [Mass/Vol] 3.2 g/dL Low 3.5-5.7 [facility] Comment on above: Order Comment: No: D o not add to previous draw Performed By: #### 0 0071, 17562 #### [facility] [address] [place] [address], [place] ALKALINE PHOSPH 114 IU/L High 34-104 [facility] Comment on above: Order Comment: No: D o not add to previous draw Performed By: #### 0 0071, 28427 #### [facility] [address] [place] [address], [place] ALT [Catalytic activity/Vol] 37 U/L Normal 7-52 [facility] Comment on above: Order Comment: No: D o not add to previous draw Performed By: #### 0 0071, 99594 #### [facility] [address] [place] [address], [place] AST [Catalytic activity/Vol] 28 U/L Normal 13-39 [facility] Comment on above: Order Comment: No: D o not add to previous draw Performed By: #### 0 0071, 33674 #### [facility] [address] [place] [address], [place] Bilirubin [Mass/Vol] 0.6 mg/dL Normal 0.3-1.0 [facility] Comment on above: Order Comment: No: D o not add to previous draw Performed By: #### 0 0071, 70698 #### [facility] [address] [place] [address], [place] Bilirubin.direct [Mass/Vol] 0.1 mg/dL Normal 0.0-0.2 [facility] Comment on above: Order Comment: No: D o not add to previous draw Performed By: #### 0 0071, 65331 #### [facility] [address] [place] [address], [place] Protein [Mass/Vol] 6.3 g/dL Normal 6.0-8.3 [facility] Comment on above: Order Comment: No: D o not add to previous draw Performed By: #### 0 0071, 51318 #### [facility] [address] Operative Reporton Operative Report MR#: [id number] [facility] Pt. Name: Andry Pierre Room #: [id number] [id number] Discharge Date: Birthdate: 1960 OPERATIVE REPORT DATE [...] Olivier M.D. Date Trans: 07/26/2021 04:31 P/ [id number] cc: Say Mccormick M.D. [address] [address] Normal [facility] POC GLUCOSE LABon 07-26-2021 Glucose [Mass/Vol] 155 mg/dL High 70-100 [facility] Comment on above: Performed By: #### 1 0070, 57328, 08703, 81610 #### [facility] [address] [facility] [place] [address], [place] Glucose [Mass/Vol] 149 mg/dL High 70-100 [facility] Comment on above: Performed By: #### 8 5499 #### [facility] [address] [place] [address], [place] Glucose [Mass/Vol] 123 mg/dL High 70-100 [facility] Comment on above: Performed By: #### 1 0070, 76456, 97116, 22075 #### [facility] [address] [facility] [place] [address], [facility] Glucose [Mass/Vol] 126 mg/dL High 70-100 [facility] Comment on above: Performed By: #### 8 5499 #### [facility] [address] [facility] [place] [address], [facility] PROTHROMBIN TIMEon 10-21-202 1 INR Coag (PPP) [Relative time] 1.20 {INR} High 0.91-1.16 [facility] Comment on above: Order Comment: No: [...] CHEST 1995;108:231S-246S. Performed By: #### 1 0070, 14884, 33879, 00306 #### [facility] [address] [place] [address], [facility] PT Coag (PPP) [Time] 15.2 s High 12.3-14.8 [facility] Comment on above: Order Comment: No: D o not add to previous draw Result Comment: ALL RESULTS MUST BE INTERPRETED WITH RESPECT TO BLOOD DRAWING ARTIFACT OR DILUTION ERROR OF ANTICOAGULANT AT THE TIME OF SAMPLING. Performed By: #### 1 0070, 63051, 65383, 10887 #### [facility] [address] [place] [address], [facility] APTTon 07-25-2021 aPTT Coag (Bld) [Time] 29.3 s Normal 25.0-35.0 [facility] Comment on above: Order Comment: No: [...] THIS PURPOSE. Performed By: #### 1 0070, 95913, 35467, 44748 #### [facility] [address] [facility] [place] [address], [facility] aPTT Coag (Bld) [Time] 28.7 s Normal 25.0-35.0 [facility] Comment on above: Order Comment: No: [...] THIS PURPOSE. Performed By: #### 1 0070, 33090, 78412, 91148 #### [facility] [address] [place] [id number], [facility] BASIC METABOLIC PANELon 10-2 Calcium [Mass/Vol] 8.3 mg/dL Low 8.6-10.3 [facility] Comment on above: Order Comment: No: D o not add to previous draw Performed By: #### 1 0070, 94068, 60572, 98250 #### [facility] [address] [place] [id number], [facility] Chloride [Moles/Vol] 111 mmol/L High 98-107 [facility] Comment on above: Order Comment: No: D o not add to previous draw Performed By: #### 1 0070, 90465, 19796, 87928 #### [facility] [address] [place] [address], [facility] CO2 [Moles/Vol] 26 mmol/L Normal 21-31 [facility] Comment on above: Order Comment: No: D o not add to previous draw Performed By: #### 1 0070, 58993, 82254, 46245 #### [facility] [address] [place] [address], [facility] Creatinine [Mass/Vol] 1.25 mg/dL Normal 0.70-1.30 [facility] Comment on above: Order Comment: No: D o not add to previous draw Performed By: #### 1 0070, 29349, 15041, 25865 #### [facility] [address] eGFR- non- 59 ml/min/1.73sq m Abnormal >60 [facility] Comment on above: Order Comment: No: D o not add to previous draw Performed By: #### 1 0070, 78140, 38307, 25554 #### [facility] [address] [place] [address], [facility] GFR/1.73 sq M.predicted among blacks MDRD (S/P/Bld) [Vol rate/Area] mL/min/{1.73_m2} Normal >60 [facility] Comment on above: Order Comment: No: D o not add to previous draw Performed By: #### 1 0070, 53929, 45173, 75829 #### [facility] [address] [place] [id number], [facility] Glucose [Mass/Vol] 107 mg/dL High 70-100 [facility] Comment on above: Order Comment: No: D o not add to previous draw Performed By: #### 1 0070, 71648, 48816, 13222 #### [facility] [address] [place] [address], [place] Potassium [Moles/Vol] 3.6 mmol/L Normal 3.5-5.1 [facility] Comment on above: Order Comment: No: D o not add to previous draw Performed By: #### 1 0070, 27870, 99090, 07007 #### [facility] [address] [place] [address], [place] Sodium [Moles/Vol] 143 mmol/L Normal 136-145 [facility] Comment on above: Order Comment: No: D o not add to previous draw Performed By: #### 1 0070, 53504, 04411, 73780 #### [facility] [address] [place] [address], [place] Urea nitrogen [Mass/Vol] 22 mg/dL Normal 7-25 [facility] Comment on above: Order Comment: No: D o not add to previous draw Performed By: #### 1 0070, 86243, 19529, 33285 #### [facility] [address] [place] [address], [place] CBC COMPLETE BLOOD COUNTon Erythrocyte distribution width (RBC) [Ratio] 13.3 % Normal 11.5-15.0 [facility] Comment on above: Order Comment: No: D o not add to previous draw Performed By: #### 1 0070, 68460, 72987, 07475 #### [facility] [address] [place] [address], [place] Hematocrit (Bld) [Volume fraction] 46.9 % Normal 39.0-50.0 [facility] Comment on above: Order Comment: No: D o not add to previous draw Performed By: #### 1 0070, 61233, 86405, 82571 #### [facility] [address] [place] [address], [place] Hemoglobin (Bld) [Mass/Vol] 15.4 g/dL Normal 13.0-17.0 [facility] Comment on above: Order Comment: No: D o not add to previous draw Performed By: #### 1 0070, 38213, 83123, 74574 #### [facility] [address] [place] [id number], [facility] MCH (RBC) [Entitic mass] 31.3 pg Normal 27.0-33.0 [facility] Comment on above: Order Comment: No: D o not add to previous draw Performed By: #### 1 0070, 49084, 43059, 14432 #### [facility] [address] [place] [address], [facility] MCHC (RBC) [Mass/Vol] 32.8 g/dL Normal 32.0-35.0 [facility] Comment on above: Order Comment: No: D o not add to previous draw Performed By: #### 1 0070, 66063, 09407, 45971 #### [facility] [address] [place] [id number], [facility] MCV (RBC) [Entitic vol] 95.3 fL Normal 82.0-98.0 [facility] Comment on above: Order Comment: No: D o not add to previous draw Performed By: #### 1 0070, 09990, 83910, 29578 #### [facility] [address] [facility] [place] [address], [facility] Nucleated RBC/100 WBC (Bld) [Ratio] 0 % Normal 0-0 [facility] Comment on above: Order Comment: No: D o not add to previous draw Performed By: #### 1 0070, 84160, 11149, 38576 #### [facility] [address] [place] [id number], [facility] PLAT CNT 183 10*3/uL Normal 150-400 [facility] Comment on above: Order Comment: No: D o not add to previous draw Performed By: #### 1 0070, 60949, 68633, 42195 #### [facility] [address] [place] [address], [facility] RBC (Bld) [#/Vol] 4.92 10*6/uL Normal 4.20-5.70 [facility] Comment on above: Order Comment: No: D o not add to previous draw Performed By: #### 1 0070, 69273, 64587, 28836 #### [facility] [address] [place] [id number], [facility] WBC (Bld) [#/Vol] 9.70 10*3/uL Normal 4.00-10.60 [facility] Comment on above: Order Comment: No: D o not add to previous draw Performed By: #### 1 0070, 16592, 52756, 52573 #### [facility] [address] [facility] [place] [address], [facility] LIPASE BLOODon 07-25-2021 LIPASE 34 Units/L Normal 11-82 [facility] Comment on above: Order Comment: No: D o not add to previous draw Performed By: #### 1 0070, 87196, 92923, 53628 #### [facility] [address] [facility] [place] [address], [facility] LIVER BATTERYon 07-25-2021 Albumin [Mass/Vol] 3.0 g/dL Low 3.5-5.7 [facility] Comment on above: Order Comment: No: D o not add to previous draw Performed By: #### 1 0070, 20029, 97156, 27211 #### [facility] [address] [facility] [place] [address], [facility] ALKALINE PHOSPH 113 IU/L High 34-104 [facility] Comment on above: Order Comment: No: D o not add to previous draw Performed By: #### 1 0070, 29564, 22888, 78199 #### [facility] [address] [place] [id number], [facility] ALT [Catalytic activity/Vol] 37 U/L Normal 7-52 [facility] Comment on above: Order Comment: No: D o not add to previous draw Performed By: #### 1 0070, 00109, 27312, 20838 #### [facility] [address] [place] [address], [place] AST [Catalytic activity/Vol] 36 U/L Normal 13-39 [facility] Comment on above: Order Comment: No: D o not add to previous draw Performed By: #### 1 0070, 11466, 26293, 11473 #### [facility] [address] [place] [address], [place] Bilirubin [Mass/Vol] 0.6 mg/dL Normal 0.3-1.0 [facility] Comment on above: Order Comment: No: D o not add to previous draw Performed By: #### 1 0070, 88908, 61176, 51688 #### [facility] [address] [place] [address], [facility] Bilirubin.direct [Mass/Vol] 0.1 mg/dL Normal 0.0-0.2 [facility] Comment on above: Order Comment: No: D o not add to previous draw Performed By: #### 1 0070, 60812, 26825, 47049 #### [facility] [address] [place] [address], [place] Protein [Mass/Vol] 5.3 g/dL Low 6.0-8.3 [facility] Comment on above: Order Comment: No: D o not add to previous draw Performed By: #### 1 0070, 10671, 38564, 52473 #### [facility] [address] [place] [address], [place] POC GLUCOSE LABon 07-25-2021 Glucose [Mass/Vol] 388 mg/dL High 70-100 [facility] Comment on above: Performed By: #### 1 0070, 18624, 00657, 51752 #### [facility] [address] [place] [address], [facility] Glucose [Mass/Vol] 173 mg/dL High 70-100 [facility] Comment on above: Performed By: #### 8 5499 #### [facility] [address] [place] [address], [facility] Glucose [Mass/Vol] 178 mg/dL High 70-100 [facility] Comment on above: Performed By: #### 8 5499 #### [facility] [address] [place] [address], [facility] Glucose [Mass/Vol] 106 mg/dL High 70-100 [facility] Comment on above: Performed By: #### 1 0070, 51790, 38911, 01351 #### [facility] [address] PROTHROMBIN TIMEon 1020-202 1 INR Coag (PPP) [Relative time] 1.30 {INR} High 0.91-1.16 [facility] Comment on above: Order Comment: No: [...] CHEST 1995;108:231S-246S. Performed By: #### 1 0070, 09229, 45602, 55387 #### [facility] [address] PT Coag (PPP) [Time] 16.2 s High 12.3-14.8 [facility] Comment on above: Order Comment: No: D o not add to previous draw Result Comment: ALL RESULTS MUST BE INTERPRETED WITH RESPECT TO BLOOD DRAWING ARTIFACT OR DILUTION ERROR OF ANTICOAGULANT AT THE TIME OF SAMPLING. Performed By: #### 1 0070, 58574, 94758, 25414 #### [facility] [address] [facility] [address] UFH HEPARIN ASSAYon 07-25-20 UNFRACTIONATED HEPARIN <0.10 Critically low 0.30-0.70 [facility] Comment on above: Result Comment: Resu lts called. Accur[place] 4D [place] [id number], 25-Jul-2021. Patient is not on anything that would raise the uFH value per nurse Caitlin. Rivaroxaban and Apixaban will interfere with the anti Xa assay used to monitor UFH and LMWH. Performed By: #### 1 0070, 86838, 74365, 22206 #### [facility] [address] [place] [address], [facility] UNFRACTIONATED HEPARIN <0.10 Critically low 0.30-0.70 [facility] Comment on above: Result Comment: Resu lt checked and called. Accurately read back by Caitlin Koch RN at 1024 Rivaroxaban and Apixaban will interfere with the anti Xa assay used to monitor UFH and LMWH. Performed By: #### 1 0070, 42569, 75985, 28638 #### [facility] [address] [place] [address], [facility] BASIC METABOLIC PANELon 10-1 Calcium [Mass/Vol] 8.7 mg/dL Normal 8.6-10.3 [facility] Comment on above: Order Comment: No: D o not add to previous draw Performed By: #### 0 0071, 28272 #### [facility] [address] [place] [address], [place] Chloride [Moles/Vol] 105 mmol/L Normal 98-107 [facility] Comment on above: Order Comment: No: D o not add to previous draw Performed By: #### 0 0071, 64366 #### [facility] [address] [place] [address], [place] CO2 [Moles/Vol] 30 mmol/L Normal 21-31 [facility] Comment on above: Order Comment: No: D o not add to previous draw Performed By: #### 0 0071, 32625 #### [facility] [address] [place] [address], [place] Creatinine [Mass/Vol] 1.52 mg/dL High 0.70-1.30 [facility] Comment on above: Order Comment: No: D o not add to previous draw Performed By: #### 0 0071, 16791 #### [facility] [address] [place] [address], [place] eGFR- 57 ml/min/1.73sq m Abnormal >60 [facility] Comment on above: Order Comment: No: D o not add to previous draw Performed By: #### 0 0071, 82943 #### [facility] [address] [place] [address], [place] eGFR- non- 47 ml/min/1.73sq m Abnormal >60 [facility] Comment on above: Order Comment: No: D o not add to previous draw Performed By: #### 0 0071, 31445 #### [facility] [address] [place] [address], [place] Glucose [Mass/Vol] 331 mg/dL High 70-100 [facility] Comment on above: Order Comment: No: D o not add to previous draw Performed By: #### 0 0071, 38114 #### [facility] [address] [place] [id number], [facility] Potassium [Moles/Vol] 4.3 mmol/L Normal 3.5-5.1 [facility] Comment on above: Order Comment: No: D o not add to previous draw Performed By: #### 0 0071, 35960 #### [facility] [address] [place] [address], [place] Sodium [Moles/Vol] 139 mmol/L Normal 136-145 [facility] Comment on above: Order Comment: No: D o not add to previous draw Performed By: #### 0 0071, 76964 #### [facility] [address] [place] [id number], [facility] Urea nitrogen [Mass/Vol] 26 mg/dL High 7-25 [facility] Comment on above: Order Comment: No: D o not add to previous draw Performed By: #### 0 0071, 02403 #### [facility] [address] [place] [address], [facility] CBC COMPLETE BLOOD COUNTon - Erythrocyte distribution width (RBC) [Ratio] 13.2 % Normal 11.5-15.0 [facility] Comment on above: Order Comment: No: D o not add to previous draw Performed By: #### 1 0070, 58093, 24711, 45986 #### [facility] [address] [place] [address], [place] Hematocrit (Bld) [Volume fraction] 42.9 % Normal 39.0-50.0 [facility] Comment on above: Order Comment: No: D o not add to previous draw Performed By: #### 1 0070, 91762, 89855, 31149 #### [facility] [address] Hemoglobin (Bld) [Mass/Vol] 13.7 g/dL Normal 13.0-17.0 [facility] Comment on above: Order Comment: No: D o not add to previous draw Performed By: #### 1 0070, 18599, 70448, 61217 #### [facility] [address] [place] [address], [facility] MCH (RBC) [Entitic mass] 30.9 pg Normal 27.0-33.0 [facility] Comment on above: Order Comment: No: D o not add to previous draw Performed By: #### 1 0070, 34266, 03454, 82750 #### [facility] [address] [facility]. [address] MCHC (RBC) [Mass/Vol] 31.9 g/dL Low 32.0-35.0 [facility] Comment on above: Order Comment: No: D o not add to previous draw Performed By: #### 1 0070, 08131, 48033, 48957 #### [facility] [address] [facility] [place] [address], [facility] MCV (RBC) [Entitic vol] 96.6 fL Normal 82.0-98.0 [facility] Comment on above: Order Comment: No: D o not add to previous draw Performed By: #### 1 0070, 37681, 21318, 69987 #### [facility] [address] [facility]. [address] Nucleated RBC/100 WBC (Bld) [Ratio] 0 % Normal 0-0 [facility] Comment on above: Order Comment: No: D o not add to previous draw Performed By: #### 1 0070, 16997, 60290, 04961 #### [facility] [address] [place] [address], [facility] PLAT CNT 184 10*3/uL Normal 150-400 [facility] Comment on above: Order Comment: No: D o not add to previous draw Performed By: #### 1 0070, 36800, 73427, 74149 #### [facility] [address] [facility] [place] [address], [facility] RBC (Bld) [#/Vol] 4.44 10*6/uL Normal 4.20-5.70 [facility] Comment on above: Order Comment: No: D o not add to previous draw Performed By: #### 1 0070, 46899, 81363, 44164 #### [facility] [address] [place] [address], [facility] WBC (Bld) [#/Vol] 8.42 10*3/uL Normal 4.00-10.60 [facility] Comment on above: Order Comment: No: D o not add to previous draw Performed By: #### 1 0070, 51530, 01523, 50427 #### [facility] [address] ERCPon 07-24-2021 ERCP [facility] Department of Radiology [address] [place] [id number] Patient Name: ANDRY PIERRE : 1960 Sex: M Age: Race: White Pt. Location: [id number] Patient Status: I Ordered Date: 07/24/2021 7:00:00 [...] details. Electronically signed: Khoa Chahal. Transcribed by: [email or web address], User Resident: Electronically Signed by: KHOA CHAHAL @ 07/25/2021 08:48 AM Normal [facility] Comment on above: Order Comment: ERCP Endoscopy Reporton Endoscopy Report MR#: [id number] [facility] Pt. Name: Andry Pierre Surgery Date: 07/24/2021 Room #: [id number] Date of : 1960 PROCEDURE NOTE ATTENDING: Amy Remy M.D. INTEGRATION PROJECT MANAGER: Cyrus Decker MD PROCEDURE: ERCP with biliary [...] Decker MD Date Trans: 07/24/2021 09:24 P/michaela [id number] cc: Say Mccormick M.D. [place] [id number] [facility] [place] [address] Normal [facility] LIVER BATTERYon 07-24-2021 Albumin [Mass/Vol] 3.3 g/dL Low 3.5-5.7 [facility] Comment on above: Order Comment: No: D o not add to previous draw Performed By: #### 0 0071, 28451 #### [facility] [address] [place] [address], [place] ALKALINE PHOSPH 106 IU/L High 34-104 [facility] Comment on above: Order Comment: No: D o not add to previous draw Performed By: #### 0 0071, 00273 #### [facility] [address] [place] [address], [place] ALT [Catalytic activity/Vol] 26 U/L Normal 7-52 [facility] Comment on above: Order Comment: No: D o not add to previous draw Performed By: #### 0 0071, 47401 #### [facility] [address] [place] [address], [place] AST [Catalytic activity/Vol] 17 U/L Normal 13-39 [facility] Comment on above: Order Comment: No: D o not add to previous draw Performed By: #### 0 0071, [id number] #### [facility] [address] [place] [address], [place] Bilirubin [Mass/Vol] 0.3 mg/dL Normal 0.3-1.0 [facility] Comment on above: Order Comment: No: D o not add to previous draw Performed By: #### 0 0071, 00576 #### [facility] [address] [place] [address], [place] Bilirubin.direct [Mass/Vol] 0.0 mg/dL Normal 0.0-0.2 [facility] Comment on above: Order Comment: No: D o not add to previous draw Performed By: #### 0 0071, 95800 #### [facility] [address] [place] [address], [place] Protein [Mass/Vol] 6.1 g/dL Normal 6.0-8.3 [facility] Comment on above: Order Comment: No: D o not add to previous draw Performed By: #### 0 0071, 33963 #### [facility] [address] [place] [address], [place] POC GLUCOSE LABon 07-24-2021 Glucose [Mass/Vol] 89 mg/dL Normal 70-100 [facility] Comment on above: Performed By: #### 8 [id number] #### [facility] [address] [place] [address], [place] Glucose [Mass/Vol] 89 mg/dL Normal 70-100 [facility] Comment on above: Performed By: #### 1 0070, 55481, 30647, 48504 #### [facility] [address] [place] [address], [place] Glucose [Mass/Vol] 166 mg/dL High 70-100 [facility] Comment on above: Performed By: #### 8 5499 #### [facility] [address] [place] [address], [place] Glucose [Mass/Vol] 391 mg/dL High 70-100 [facility] Comment on above: Performed By: #### 8 5499 #### [facility] [address] [place] [address], [place] POC SARS COV2 ANTIGEN NEGATI VEon 07-24-2021 POC SARS COV2 ANTIGEN NEG Negative Normal NEGATIVE [facility] Comment on above: Result Comment: Nega [...] signs and symptoms consistent with COVID-19. The SOAK ([employer]) COVID-19 Ag Card is a lateral flow [...] Accreditation. Performed By: #### 8 [id number] #### [address] PROTHROMBIN TIMEon 1 INR Coag (PPP) [Relative time] 1.53 {INR} High 0.91-1.16 [facility] Comment on above: Order Comment: No: [...] CHEST 1995;108:231S-246S. Performed By: #### 1 0070, 61281, 67762, 03062 #### [facility] [address] [place] [address], [facility] PT Coag (PPP) [Time] 18.3 s High 12.3-14.8 [facility] Comment on above: Order Comment: No: D o not add to previous draw Result Comment: ALL RESULTS MUST BE INTERPRETED WITH RESPECT TO BLOOD DRAWING ARTIFACT OR DILUTION ERROR OF ANTICOAGULANT AT THE TIME OF SAMPLING. Performed By: #### 1 0070, 97724, 33000, 63546 #### [facility] [address] COMP METABOLIC PANELon 07-23 Albumin [Mass/Vol] 3.5 g/dL Normal 3.5-5.7 [facility] Comment on above: Order Comment: No: D o not add to previous draw Performed By: #### 8 [id number] #### [facility] [address] [place] [address], [facility] ALKALINE PHOSPH 122 IU/L High 34-104 [facility] Comment on above: Order Comment: No: D o not add to previous draw Performed By: #### 8 5499 #### [facility] [address] [place] [address], [facility] ALT [Catalytic activity/Vol] 32 U/L Normal 7-52 [facility] Comment on above: Order Comment: No: D o not add to previous draw Performed By: #### 8 5499 #### [facility] [address] [place] [address], [facility] AST [Catalytic activity/Vol] 22 U/L Normal 13-39 [facility] Comment on above: Order Comment: No: D o not add to previous draw Performed By: #### 8 5499 #### [facility] [address] [place] [address], [place] Bilirubin [Mass/Vol] 0.4 mg/dL Normal 0.3-1.0 [facility] Comment on above: Order Comment: No: D o not add to previous draw Performed By: #### 8 5499 #### [facility] [address] [place] [address], [place] Calcium [Mass/Vol] 8.5 mg/dL Low 8.6-10.3 [facility] Comment on above: Order Comment: No: D o not add to previous draw Performed By: #### 8 5499 #### [facility] [address] [place] [address], [place] Chloride [Moles/Vol] 110 mmol/L High 98-107 [facility] Comment on above: Order Comment: No: D o not add to previous draw Performed By: #### 8 5499 #### [facility] [address] [place] [address], [place] CO2 [Moles/Vol] 23 mmol/L Normal 21-31 [facility] Comment on above: Order Comment: No: D o not add to previous draw Performed By: #### 8 5499 #### [facility] [address] [place] [address], [place] Creatinine [Mass/Vol] 1.33 mg/dL High 0.70-1.30 [facility] Comment on above: Order Comment: No: D o not add to previous draw Performed By: #### 8 5499 #### [facility] [address] [place] [address], [place] eGFR- non- 55 ml/min/1.73sq m Abnormal >60 [facility] Comment on above: Order Comment: No: D o not add to previous draw Performed By: #### 8 5499 #### [facility] [address] [place] [address], [place] GFR/1.73 sq M.predicted among blacks MDRD (S/P/Bld) [Vol rate/Area] mL/min/{1.73_m2} Normal >60 [facility] Comment on above: Order Comment: No: D o not add to previous draw Performed By: #### 8 5499 #### [facility] [address] [place] [address], [place] Glucose [Mass/Vol] 198 mg/dL High 70-100 [facility] Comment on above: Order Comment: No: D o not add to previous draw Performed By: #### 8 5499 #### [facility] [address] [place] [address], [place] Potassium [Moles/Vol] 3.5 mmol/L Normal 3.5-5.1 [facility] Comment on above: Order Comment: No: D o not add to previous draw Performed By: #### 8 5499 #### [facility] [address] [place] [address], [place] Protein [Mass/Vol] 6.3 g/dL Normal 6.0-8.3 [facility] Comment on above: Order Comment: No: D o not add to previous draw Performed By: #### 8 5499 #### [facility] [address] [place] [address], [place] Sodium [Moles/Vol] 142 mmol/L Normal 136-145 [facility] Comment on above: Order Comment: No: D o not add to previous draw Performed By: #### 8 5499 #### [facility] [address] [place] [address], [place] Urea nitrogen [Mass/Vol] 25 mg/dL Normal 7-25 [facility] Comment on above: Order Comment: No: D o not add to previous draw Performed By: #### 8 [id number] #### [facility] [address] [place] [address], [place] POC GLUCOSE LABon 07-23-2021 Glucose [Mass/Vol] 325 mg/dL High 70-100 [facility] Comment on above: Performed By: #### 8 5499 #### [facility] [address] [place] [address], [facility] Glucose [Mass/Vol] 290 mg/dL High 70-100 [facility] Comment on above: Performed By: #### 1 0070, 62656, 31094, 94235 #### [facility] [address] [place] [address], [place] Glucose [Mass/Vol] 253 mg/dL High 70-100 [facility] Comment on above: Performed By: #### 1 0070, 96951, 32398, 81779 #### [facility] [address] [place] [address], [place] Glucose [Mass/Vol] 211 mg/dL High 70-100 [facility] Comment on above: Performed By: #### 8 5499 #### [facility] [address] [place] [address], [facility] PROTHROMBIN TIMEon INR Coag (PPP) [Relative time] 1.92 {INR} High 0.91-1.16 [facility] Comment on above: Order Comment: Unkno [...] 1995;108:231S-246S. Performed By: #### 8 5499 #### [facility] [address] [place] [address], [facility] PT Coag (PPP) [Time] 21.9 s High 12.3-14.8 [facility] Comment on above: Order Comment: Unkno wn Result Comment: ALL RESULTS MUST BE INTERPRETED WITH RESPECT TO BLOOD DRAWING ARTIFACT OR DILUTION ERROR OF ANTICOAGULANT AT THE TIME OF SAMPLING. Performed By: #### 8 [id number] #### [facility] [address] [facility] [address] APTTon 07-22-2021 aPTT Coag (Bld) [Time] 37.1 s High 25.0-35.0 [facility] Comment on above: Order Comment: No: [...] THIS PURPOSE. Performed By: #### 1 0070, 42053, 49270, 50177 #### [facility] [address] [facility] [place] [address], [facility] BASIC METABOLIC PANELon 10- Calcium [Mass/Vol] 8.3 mg/dL Low 8.6-10.3 [facility] Comment on above: Order Comment: No: D o not add to previous draw Performed By: #### 8 5499 #### [facility] [address] [facility] [place] [address], [facility] Chloride [Moles/Vol] 109 mmol/L High 98-107 [facility] Comment on above: Order Comment: No: D o not add to previous draw Performed By: #### 8 [id number] #### [facility] [address] [place] [address], [place] CO2 [Moles/Vol] 28 mmol/L Normal 21-31 [facility] Comment on above: Order Comment: No: D o not add to previous draw Performed By: #### 8 5499 #### [facility] [address] [place] [address], [facility] Creatinine [Mass/Vol] 1.48 mg/dL High 0.70-1.30 [facility] Comment on above: Order Comment: No: D o not add to previous draw Performed By: #### 8 5499 #### [facility] [address] [place] [address], [facility] eGFR- 59 ml/min/1.73sq m Abnormal >60 [facility] Comment on above: Order Comment: No: D o not add to previous draw Performed By: #### 8 5499 #### [facility] [address] [place] [address], [facility] eGFR- non- 48 ml/min/1.73sq m Abnormal >60 [facility] Comment on above: Order Comment: No: D o not add to previous draw Performed By: #### 8 5499 #### [facility] [address] [place] [address], [place] Glucose [Mass/Vol] 216 mg/dL High 70-100 [facility] Comment on above: Order Comment: No: D o not add to previous draw Performed By: #### 8 5499 #### [facility] [address] [place] [address], [place] Potassium [Moles/Vol] 4.6 mmol/L Normal 3.5-5.1 [facility] Comment on above: Order Comment: No: D o not add to previous draw Performed By: #### 8 5499 #### [facility] [address] [place] [id number], [facility] Sodium [Moles/Vol] 141 mmol/L Normal 136-145 [facility] Comment on above: Order Comment: No: D o not add to previous draw Performed By: #### 8 5499 #### [facility] [address] [place] [id number], [facility] Urea nitrogen [Mass/Vol] 26 mg/dL High 7-25 [facility] Comment on above: Order Comment: No: D o not add to previous draw Performed By: #### 8 5499 #### [facility] [address] CBC COMPLETE BLOOD COUNTon - Erythrocyte distribution width (RBC) [Ratio] 13.2 % Normal 11.5-15.0 [facility] Comment on above: Order Comment: No: D o not add to previous draw Performed By: #### 8 [id number] #### [facility] [address] [place] [address], [facility] Hematocrit (Bld) [Volume fraction] 45.8 % Normal 39.0-50.0 [facility] Comment on above: Order Comment: No: D o not add to previous draw Performed By: #### 8 [id number] #### [facility] [address] [place] [id number], [facility] Hemoglobin (Bld) [Mass/Vol] 14.8 g/dL Normal 13.0-17.0 [facility] Comment on above: Order Comment: No: D o not add to previous draw Performed By: #### 8 [id number] #### [facility] [address] [place] [id number], [facility] MCH (RBC) [Entitic mass] 31.0 pg Normal 27.0-33.0 [facility] Comment on above: Order Comment: No: D o not add to previous draw Performed By: #### 8 [id number] #### [facility] [address] [place] [id number], [facility] MCHC (RBC) [Mass/Vol] 32.3 g/dL Normal 32.0-35.0 [facility] Comment on above: Order Comment: No: D o not add to previous draw Performed By: #### 8 [id number] #### [facility] [address] [place] [id number], [facility] MCV (RBC) [Entitic vol] 95.8 fL Normal 82.0-98.0 [facility] Comment on above: Order Comment: No: D o not add to previous draw Performed By: #### 8 5499 #### [facility] [address] [place] [id number], [facility] Nucleated RBC/100 WBC (Bld) [Ratio] 0 % Normal 0-0 [facility] Comment on above: Order Comment: No: D o not add to previous draw Performed By: #### 8 [id number] #### [facility] [address] [place] [id number], [facility] PLAT CNT 209 10*3/uL Normal 150-400 [facility] Comment on above: Order Comment: No: D o not add to previous draw Performed By: #### 8 5499 #### [facility] [address] [place] [address], [facility] RBC (Bld) [#/Vol] 4.78 10*6/uL Normal 4.20-5.70 [facility] Comment on above: Order Comment: No: D o not add to previous draw Performed By: #### 8 [id number] #### [facility] [address] [place] [id number], [facility] WBC (Bld) [#/Vol] 8.89 10*3/uL Normal 4.00-10.60 [facility] Comment on above: Order Comment: No: D o not add to previous draw Performed By: #### 8 [id number] #### [facility] [address] [place] [address], [facility] LIVER BATTERYon 07-22-2021 Albumin [Mass/Vol] 3.2 g/dL Low 3.5-5.7 [facility] Comment on above: Performed By: #### 8 [id number] #### [facility] [address] [place] [address], [facility] ALKALINE PHOSPH 111 IU/L High 34-104 [facility] Comment on above: Performed By: #### 8 [id number] #### [facility] [address] [place] [address], [facility] ALT [Catalytic activity/Vol] 23 U/L Normal 7-52 [facility] Comment on above: Performed By: #### 8 [id number] #### [facility] [address] [place] [address], [facility] AST [Catalytic activity/Vol] 17 U/L Normal 13-39 [facility] Comment on above: Performed By: #### 8 [id number] #### [facility] [address] [place] [address], [facility] Bilirubin [Mass/Vol] 0.3 mg/dL Normal 0.3-1.0 [facility] Comment on above: Performed By: #### 8 5499 #### [facility] [address] [place] [address], [facility] Bilirubin.direct [Mass/Vol] 0.0 mg/dL Normal 0.0-0.2 [facility] Comment on above: Performed By: #### 8 5499 #### [facility] [address] [place] [address], [facility] Protein [Mass/Vol] 5.5 g/dL Low 6.0-8.3 [facility] Comment on above: Performed By: #### 8 5499 #### [facility] [address] [place] [address], [place] MAGNESIUM BLOODon 07-22-2021 Magnesium [Mass/Vol] 2.0 mg/dL Normal 1.9-2.7 [facility] Comment on above: Order Comment: No: D o not add to previous draw Performed By: #### 8 5499 #### [facility] [address] [place] [address], [place] PHOSPHORUS BLOODon 1 Phosphate [Mass/Vol] 3.0 mg/dL Normal 2.5-5.0 [facility] Comment on above: Order Comment: No: D o not add to previous draw Performed By: #### 8 5499 #### [facility] [address] [place] [address], [place] POC GLUCOSE LABon 07-22-2021 Glucose [Mass/Vol] 223 mg/dL High 70-100 [facility] Comment on above: Performed By: #### 1 0070, 07418, 88156, 55416 #### [facility] [address] [place] [address], [place] Glucose [Mass/Vol] 222 mg/dL High 70-100 [facility] Comment on above: Performed By: #### 8 5499 #### [facility] [address] [place] [address], [place] Glucose [Mass/Vol] 245 mg/dL High 70-100 [facility] Comment on above: Performed By: #### 8 5499 #### [facility] [address] [place] [address], [place] Glucose [Mass/Vol] 202 mg/dL High 70-100 [facility] Comment on above: Performed By: #### 1 0070, 67989, 22032, 49592 #### [facility] [address] [place] [address], [place] PROTHROMBIN TIMEon 1 INR Coag (PPP) [Relative time] 2.27 {INR} High 0.91-1.16 [facility] Comment on above: Order Comment: No: [...] CHEST 1995;108:231S-246S. Performed By: #### 1 0070, 73780, 97026, 74597 #### [facility] [address] [facility]. [address] PT Coag (PPP) [Time] 24.9 s High 12.3-14.8 [facility] Comment on above: Order Comment: No: D o not add to previous draw Result Comment: ALL RESULTS MUST BE INTERPRETED WITH RESPECT TO BLOOD DRAWING ARTIFACT OR DILUTION ERROR OF ANTICOAGULANT AT THE TIME OF SAMPLING. Performed By: #### 1 0070, 09471, 32305, 86953 #### [facility] [address] [facility] [place] [address], [facility] Basic Metabolic Panelon 10 Calcium [Mass/Vol] 9.4 mg/dL Normal 8.2-10.2 [facility] Comment on above: Performed By: #### H EPATIC, CBC, LIPASE, BMP #### [facility] [address] [place] [address] [place] Chloride [Moles/Vol] 103 mmol/L Normal 95-114 [facility] Comment on above: Performed By: #### H EPATIC, CBC, LIPASE, BMP #### [facility] [address] CO2 [Moles/Vol] 26.9 mmol/L Normal 22.0-30.0 [facility] Comment on above: Performed By: #### H EPATIC, CBC, LIPASE, BMP #### [facility] [address] Creatinine [Mass/Vol] 1.66 mg/dL High 0.64-1.27 [facility] Comment on above: Performed By: #### H EPATIC, CBC, LIPASE, BMP #### [facility] [address] Creatinine Clr Calc Pharmacy 68.90 [facility] Comment on above: Performed By: #### H EPATIC, CBC, LIPASE, BMP #### [facility] [address] Estimated GFR ( Beata 51 [facility] Comment on above: Result Comment: GFR estimated reference range: According to KDOQI guidelines, <60 ml/min/1.73m2 is sufficient to diagnose a patient with chronic kidney disease. Performed By: #### H EPATIC, CBC, LIPASE, BMP #### [facility] [address] [place] [address] Estimated GFR (Non- Am 42 [facility] Comment on above: Performed By: #### H EPATIC, CBC, LIPASE, BMP #### [facility] [address] [place] [address] [place] Glucose [Mass/Vol] 442 mg/dL High 70-100 [facility] Comment on above: Result Comment: [place] Glucose Reference Range is dependent on time and content of last meal. Glucose of more than 200 mg/dL in a nonstressed, ambulatory subject supports the diagnosis of Diabetes Mellitus. ADA recommended reference range Performed By: #### H EPATIC, CBC, LIPASE, BMP #### [facility] [address] Potassium [Moles/Vol] 4.1 mmol/L Normal 3.5-5.1 [facility] Comment on above: Performed By: #### H EPATIC, CBC, LIPASE, BMP #### [facility] [address] [place] [id number] [facility] Sodium [Moles/Vol] 140 mmol/L Normal 136-146 [facility] Comment on above: Performed By: #### H EPATIC, CBC, LIPASE, BMP #### [facility] [address] Urea nitrogen [Mass/Vol] 29 mg/dL High 9-23 [facility] Comment on above: Performed By: #### H EPATIC, CBC, LIPASE, BMP #### [facility] [address] COVID-19 Antigenon 1 COVID-19 [facility] [...] its performance Tamera Disclaimer characteristic determined by [employer] and Tamera Disclaimer validated at [facility]. This Tamera Disclaimer test has [...] Emergency Use Authorization for Coronavirus Tamera Disclaimer during the Public Health Emergency) Tamera Disclaimer [...] is terminated or revoked sooner. PERFORMED BY: [facility] [place] [address] PATHOLOGIST BERRY PICKER MACHINE OPERATOR TO [place] M.D. 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 This test has not been [...] is terminated or revoked sooner. PERFORMED BY: [place] [address] PATHOLOGIST BERRY PICKER MACHINE OPERATOR TO [place]ADISON M.D. Performed By: #### C OVID-19 TAMERA, SOFIANEG, COVID 19 [facility] [place] [facility] [place] #### [address] [address] [facility] abdomen pelvis wo conon 1 CT abdomen pelvis wo con [facility] [place] [address] [place] [address] CT Scan Report Signed Patient: Andry Pierre MR#: [id number] 28 : 1960 Acct:[id number] Age/Sex: 60 / M ADM Date: 07/21/21 Loc: Room: [address] [place] [address] Type: ADM INOo Attending Dr: Feliciano Hernandez [...] Ricks Jr., M.D.07/21/2021 9:15 AM Dictation Location: [place] [address] Transcribed By: [facility] 07/21/21914 Dictated By: Duke Ricks Jr, MD 07/21/21903 Signed By: 07/21/21914 Normal [facility] Coagulation Profileon 2020 aPTT Coag (Bld) [Time] 37.9 s High 25.1-36.5 [facility] Comment on above: Result Comment: PERF ORMED BY: [address] [place] [address] PATHOLOGIST BERRY PICKER MACHINE OPERATOR TO [place]ADISON M.D. Performed By: #### P P #### [address] INR Coag (PPP) [Relative time] 2.0 {INR} Normal [facility] Comment on above: Result Comment: [...] 4.5 Performed By: #### P P #### [address] PT Coag (PPP) [Time] 22.5 s High 9.0-12.9 [facility] Comment on above: Performed By: #### P P #### [address] Complete Blood Count Auto Di ffon 07-21-2021 Basophils (Bld) [#/Vol] 0.1 10*3/uL Normal 0.0-0.2 [facility] Comment on above: Result Comment: PERF ORMED BY: [place] [address] PATHOLOGIST BERRY PICKER MACHINE OPERATOR TO [place] M.D. Performed By: #### H EPATIC, CBC, LIPASE, BMP #### [address] Basophils/100 WBC (Bld) 0.6 % Normal . [facility] [facility] Comment on above: Performed By: #### H EPATIC, CBC, LIPASE, BMP #### [address] Eosinophils (Bld) [#/Vol] 0.4 10*3/uL Normal 0.0-0.45 [facility] Comment on above: Performed By: #### H EPATIC, CBC, LIPASE, BMP #### [address] Eosinophils/100 WBC (Bld) 4.3 % Normal . [facility] Comment on above: Performed By: #### H EPATIC, CBC, LIPASE, BMP #### [address] Erythrocyte distribution width (RBC) [Ratio] 13.7 % Normal 12.0-14.8 [facility] Comment on above: Performed By: #### H EPATIC, CBC, LIPASE, BMP #### [address] Hematocrit (Bld) [Volume fraction] 45.9 % Normal 38.8-50.0 [facility] Comment on above: Performed By: #### H EPATIC, CBC, LIPASE, BMP #### [address] Hemoglobin (Bld) [Mass/Vol] 15.4 g/dL Normal 13.0-17.0 [facility] Comment on above: Performed By: #### H EPATIC, CBC, LIPASE, BMP #### [address] Lymphocytes (Bld) [#/Vol] 2.9 10*3/uL Normal 1.00-4.8 [facility] Comment on above: Performed By: #### H EPATIC, CBC, LIPASE, BMP #### [address] Lymphocytes/100 WBC (Bld) 28.4 % Normal . [facility] Comment on above: Performed By: #### H EPATIC, CBC, LIPASE, BMP #### [address] MCH (RBC) [Entitic mass] 32.0 pg Normal 27.5-35.2 [facility] Comment on above: Performed By: #### H EPATIC, CBC, LIPASE, BMP #### [address] MCV (RBC) [Entitic vol] 95.2 fL Normal 83.5-101 [facility] Comment on above: Performed By: #### H EPATIC, CBC, LIPASE, BMP #### [address] Mean Corpuscular HGB Conc 33.6 g/dL Normal 32.5-35.6 [facility] Comment on above: Performed By: #### H EPATIC, CBC, LIPASE, BMP #### [facility] [address] [place] [address] Monocytes (Bld) [#/Vol] 0.7 10*3/uL Normal 0.0-0.8 [facility] Comment on above: Performed By: #### H EPATIC, CBC, LIPASE, BMP #### [address] Monocytes/100 WBC (Bld) 6.7 % Normal . [facility] Comment on above: Performed By: #### H EPATIC, CBC, LIPASE, BMP #### [address] Neutrophils (Bld) [#/Vol] 6.0 10*3/uL Normal 1.8-7.7 [facility] Comment on above: Performed By: #### H EPATIC, CBC, LIPASE, BMP #### [address] Neutrophils/100 WBC (Bld) 60.0 % Normal . [facility] Comment on above: Performed By: #### H EPATIC, CBC, LIPASE, BMP #### [address] Nucleated RBC/100 WBC (Bld) [Ratio] 0.1 % Normal 0-0.5 [facility] Comment on above: Performed By: #### H EPATIC, CBC, LIPASE, BMP #### [facility] [address] [place] [address] Platelet mean volume (Bld) [Entitic vol] 8.7 fL Normal 6.6-10.1 [facility] Comment on above: Performed By: #### H EPATIC, CBC, LIPASE, BMP #### [facility] [address] [place] [address] [place] Platelets (Bld) [#/Vol] 215 10*3/uL Normal 150-450 [facility] Comment on above: Performed By: #### H EPATIC, CBC, LIPASE, BMP #### [facility] [address] RBC (Bld) [#/Vol] 4.83 10*6/uL Normal 3.90-5.[address] [facility] Comment on above: Performed By: #### H EPATIC, CBC, LIPASE, BMP #### [address] WBC (Bld) [#/Vol] 10.0 10*3/uL Normal 4.5-11.[address] [facility] Comment on above: Performed By: #### H EPATIC, CBC, LIPASE, BMP #### [address] Glucose Poct Glucometerson 1 Commemt1 Glu2: Cleaned Meter Normal [facility] Comment on above: Result Comment: PERF ORMED BY: [place] [address] PATHOLOGIST BERRY PICKER MACHINE OPERATOR TO MADISON M.D. Performed By: #### H EPATIC, CBC, LIPASE, BMP #### [address] Glucose [Mass/Vol] 267 mg/dL Normal [facility] Comment on above: Result Comment: [place] Glucose Reference Range is dependent on time and content of last meal. Glucose of more than 200 mg/dL in a nonstressed, ambulatory subject supports the diagnosis of Diabetes Mellitus. Performed By: #### H EPATIC, CBC, LIPASE, BMP #### [address] Commemt1 Glu2: Cleaned Meter Normal [facility] Comment on above: Result Comment: PERF ORMED BY: [place] [address] PATHOLOGIST BERRY PICKER MACHINE OPERATOR TO [place]ADISON M.D. Performed By: #### H EPATIC, CBC, LIPASE, BMP #### [address] Glucose [Mass/Vol] 252 mg/dL Normal [facility] Comment on above: Result Comment: [place] om Glucose Reference Range is dependent on time and content of last meal. Glucose of more than 200 mg/dL in a nonstressed, ambulatory subject supports the diagnosis of Diabetes Mellitus. Performed By: #### H EPATIC, CBC, LIPASE, BMP #### [facility] [address] [place] [address] Commemt1 Glu2: Cleaned Meter Normal [facility] Comment on above: Result Comment: PERF ORMED BY: [place] [address] PATHOLOGIST BERRY PICKER MACHINE OPERATOR TO [place]ADISON M.D. Performed By: #### H EPATIC, CBC, LIPASE, BMP #### [address] Glucose [Mass/Vol] 100 mg/dL Normal [facility] Comment on above: Result Comment: [place] om Glucose Reference Range is dependent on time and content of last meal. Glucose of more than 200 mg/dL in a nonstressed, ambulatory subject supports the diagnosis of Diabetes Mellitus. Performed By: #### H EPATIC, CBC, LIPASE, BMP #### [address] Glucose [Mass/Vol] 140 mg/dL Normal [facility] Comment on above: Result Comment: [place] om Glucose Reference Range is dependent on time and content of last meal. Glucose of more than 200 mg/dL in a nonstressed, ambulatory subject supports the diagnosis of Diabetes Mellitus. PERFORMED BY: [place] [address] PATHOLOGIST BERRY PICKER MACHINE OPERATOR TO [place]ADISON M.D. Performed By: #### H EPATIC, CBC, LIPASE, BMP #### [facility] [address] [place] [address] Hepatic Panelon 07-21-2021 Albumin [Mass/Vol] 3.5 g/dL Normal 3.2-5.5 [facility] Comment on above: Performed By: #### H EPATIC, CBC, LIPASE, BMP #### [facility] [address] [place] [address] Albumin/Globulin [Mass ratio] 1.1 {ratio} Normal [facility] Comment on above: Performed By: #### H EPATIC, CBC, LIPASE, BMP #### [facility] [address] ALP [Catalytic activity/Vol] 115 U/L High 32-92 [facility] Comment on above: Performed By: #### H EPATIC, CBC, LIPASE, BMP #### [facility] [address] [place] [address] ALT [Catalytic activity/Vol] 30 U/L Normal 10-60 [facility] Comment on above: Performed By: #### H EPATIC, CBC, LIPASE, BMP #### [facility] [address] [place] [address] AST [Catalytic activity/Vol] 19 U/L Normal 10-42 [facility] Comment on above: Performed By: #### H EPATIC, CBC, LIPASE, BMP #### [facility] [address] [place] [address] Bilirubin [Mass/Vol] 0.7 mg/dL Normal 0.3-1.2 [facility] Comment on above: Performed By: #### H EPATIC, CBC, LIPASE, BMP #### [facility] [address] [place] [address] Bilirubin,Indirect Not performed Normal [facility] Comment on above: Performed By: #### H EPATIC, CBC, LIPASE, BMP #### [facility] [address] [place] [address] Bilirubin.indirect [Mass/Vol] mg/dL Normal 0.0-0.4 [facility] Comment on above: Performed By: #### H EPATIC, CBC, LIPASE, BMP #### [facility] [address] [place] [address] Globulin (S) [Mass/Vol] 3.2 g/dL Normal [facility] Comment on above: Performed By: #### H EPATIC, CBC, LIPASE, BMP #### [facility] [address] Protein [Mass/Vol] 6.7 g/dL Normal 6.1-7.9 [facility] Comment on above: Performed By: #### H EPATIC, CBC, LIPASE, BMP #### [address] Lactic Acidon 07-21-2021 Lactate [Moles/Vol] 1.2 mmol/L Normal 0.5-2.[address] [facility] Comment on above: Result Comment: PERF ORMED BY: [place] [address] PATHOLOGIST BERRY PICKER MACHINE OPERATOR TO MADISON M.D. Performed By: #### L ACTIC #### [address] Lipaseon 07-21-2021 Lipase [Catalytic activity/Vol] 43.0 U/L Normal 22-51 [facility] Comment on above: Result Comment: PERF ORMED BY: [place] [address] PATHOLOGIST BERRY PICKER MACHINE OPERATOR TO [place]ADISON M.D. Performed By: #### H EPATIC, CBC, LIPASE, BMP #### [address] Tamera Ag Negativeon 07-21-20 21 Tamera Ag Negative Negative Normal Negative [facility] Comment on above: Result Comment: This is a duplicate Tamera SARS Antigen (GIOVANNA) result to be used for statistical tracking purpose only. PERFORMED BY: [place] [address] PATHOLOGIST BERRY PICKER MACHINE OPERATOR TO MADISON M.D. Performed By: #### C OVID-19 TAMERA, SOFIANEG, COVID 19 [facility] [place] #### [address] Urinalysison 07-21-2021 Appearance (U) Clear Normal Clear [facility] Comment on above: Order Comment: Name Collection Type:: Clean-Voided Midstream Performed By: #### U A #### [facility] [address] [place] [address] [place] Bilirubin,Urine Negative Normal Negative [facility] Comment on above: Order Comment: Name Collection Type:: Clean-Voided Midstream Performed By: #### U A #### [facility] [address] [place] [address] [place] Color (U) Yellow Normal Yellow [facility] Comment on above: Order Comment: Name Collection Type:: Clean-Voided Midstream Performed By: #### U A #### [place] [address] [place] Glucose Ql (U) >=1000 High Normal [facility] Comment on above: Order Comment: Name Collection Type:: Clean-Voided Midstream Performed By: #### U A #### [address] Ketones Ql (U) Negative Normal Negative [facility] Comment on above: Order Comment: Name Collection Type:: Clean-Voided Midstream Performed By: #### U A #### [address] Leukocyte esterase Test strip Ql (U) Negative Normal Negative [facility] Comment on above: Order Comment: Name Collection Type:: Clean-Voided Midstream Performed By: #### U A #### [place] [address] [place] Nitrite,Urine Negative Normal Negative [facility] Comment on above: Order Comment: Name Collection Type:: Clean-Voided Midstream Performed By: #### U A #### [facility] [address] [place] [address] [place] Occult Blood,Urine Negative Normal Negative [facility] Comment on above: Order Comment: Name Collection Type:: Clean-Voided Midstream Result Comment: PERF ORMED BY: [place] [address] PATHOLOGIST BERRY PICKER MACHINE OPERATOR TO [place]ADISON M.D. Performed By: #### U A #### [facility] [address] [place] [address] [place] pH (U) 6.5 [pH] Normal 5.0-9.0 [facility] Comment on above: Order Comment: Name Collection Type:: Clean-Voided Midstream Performed By: #### U A #### [address] Protein,Urine Negative Normal Negative [facility] Comment on above: Order Comment: Name Collection Type:: Clean-Voided Midstream Performed By: #### U A #### [address] Specificy [place],Urine 1.026 Normal 1.001-1.030 [facility] Comment on above: Order Comment: Name Collection Type:: Clean-Voided Midstream Performed By: #### U A #### [address] Urobilinogen,Urine Normal Normal Normal [facility] Comment on above: Order Comment: Name Collection Type:: Clean-Voided Midstream Performed By: #### U A #### [address] Vital Signs Date Time Vital Sign Value Performing Clinician Facility 05-28-2024 10:57-0400 Body height 175.3 cm Yossi Bower MD Work Phone: [facility] 12-08-2023 19:17-0500 Respiratory rate 18 /min Abdirahman Hunt MD [facility] 12-08-2023 16:50-0500 Body temperature 97.9 [degF] Abdirahman Hunt MD [facility] 12-08-2023 16:50-0500 Diastolic blood pressure 88 mm[Hg] Abdirahman Hunt MD [facility] 12-08-2023 16:50-0500 Heart rate 90 /min Abdirahman Hunt MD [facility] 12-08-2023 16:50-0500 SaO2% (BldA) [Mass fraction] 98 % Abdirahman Hunt MD [facility] 12-08-2023 16:50-0500 Systolic blood pressure 149 mm[Hg] Abdirahman Hunt MD [facility] 12-05-2023 15:04-0500 Body height 180.3 cm Abdirahman Hunt MD [facility] 11-30-2023 00:18-0500 Body temperature 37.0 Abdirahman Hunt MD [facility] 11-29-2023 20:00-0500 Body mass index (BMI) [Ratio] 40.96 kg/m2 Abdirahman Hunt MD [facility] 11-29-2023 20:00-0500 Body weight 133.2 kg Abdirahman Hunt MD [facility] 11-06-2023 09:57-0500 Body height 175.3 cm Obed Florian MD Work Phone: [facility] 11-06-2023 09:57-0500 Body weight 123.38 kg Obed Florian MD Work Phone: [facility] 11-06-2023 09:57-0500 Diastolic blood pressure 89 mm[Hg] Obed Florian MD Work Phone: [facility] 11-06-2023 09:57-0500 Heart rate 81 /min Obed Florian MD Work Phone: [facility] 11-06-2023 09:57-0500 SaO2% (BldA) [Mass fraction] 95 % Obed Florian MD Work Phone: [facility] 11-06-2023 09:57-0500 Systolic blood pressure 127 mm[Hg] Obed Florian MD Work Phone: [facility] 01-21-2022 07:23-0400 Body height 182.9 cm Pacc 3 Work Phone: [facility] 01-21-2022 07:23-0400 Body temperature 97.2 [degF] Pacc 3 Work Phone: [facility] 01-21-2022 07:23-0400 Body weight 140.21 kg Pacc 3 Work Phone: [facility] 01-21-2022 07:23-0400 Diastolic blood pressure 84 mm[Hg] Pacc 3 Work Phone: [facility] 01-21-2022 07:23-0400 Heart rate 57 /min Pacc 3 Work Phone: [facility] 01-21-2022 07:23-0400 SaO2% (BldA) [Mass fraction] 99 % Pacc 3 Work Phone: [facility] 01-21-2022 07:23-0400 Systolic blood pressure 134 mm[Hg] Pacc 3 Work Phone: [facility] 11-13-2021 12:20-0500 Body height 182.88 cm Azlevi Laroses Other [facility] Other 11-13-2021 12:20-0500 Body mass index (BMI) [Ratio] 42.04 kg/m2 Azlevi Laroses Other [facility] Other 11-13-2021 12:20-0500 Body temperature 96.2 [degF] Azlevi Laroses Other [facility] Other 11-13-2021 12:20-0500 Body weight 140.62 kg Aziz Bakhous Other [facility] Other 11-13-2021 12:20-0500 Diastolic blood pressure 60 mm[Hg] Aziz Bakhous Other [facility] Other 11-13-2021 12:20-0500 Respiratory rate 20 /min Aziz Bakhous Other [facility] Other 11-13-2021 12:20-0500 SaO2% (BldA) [Mass fraction] 96 % Aziz Bakhous Other [facility] Other 11-13-2021 12:20-0500 Systolic blood pressure 92 mm[Hg] Sanjay Dooley Other [employer] Other Encounters Encounter Date Encounter Type Care Provider Facility Start: 06-01-2025 End: 06-01-2025 Katie Cervantes NP Work Phone: [facility] Comment on above: Intention tremor Start: 04-21-2025 ambulatory TIFFANIE [facility] Start: 02-08-2025 ambulatory [facility] Start: 11-29-2024 ambulatory [facility] Start: 11-08-2024 ambulatory [facility] Start: 11-02-2024 End: 11-02-2024 [facility] Start: 10-14-2024 End: 10-14-2024 [facility] Start: 09-20-2024 End: 09-20-2024 [facility] Start: 09-20-2024 End: 09-20-2024 [facility] Start: 09-16-[address] [facility] Start: 08-12-2024 End: 08-12-2024 Telephone encounter Yossi Bower MD Work Phone: [facility] Start: 08-09-2024 ambulatory [facility] Start: 07-30-2024 End: 07-30-2024 Kay flowswestley Bower MD Work Phone: [facility] Start: 07-30-2024 End: 07-30-2024 Kay flowsheet Yossi Bower MD Work Phone: [facility] Start: 07-30-2024 End: 07-30-2024 Office outpatient visit 25 minutes Yossi Bower MD Work Phone: [facility] Comment on above: CIDP (chronic inflam matory demyelinating polyneuropathy) ([facility]) (Primary Dx); 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 ([facility]); Bilateral foot-drop Start: 07-30-2024 End: 07-30-2024 ambulatory YOSSI BOWER Not Available Start: 07-28-2024 ambulatory [facility] Start: 07-26-2024 End: 07-26-2024 ambulatory [facility] Start: 07-13-2024 End: 07-13-2024 ambulatory [facility] Start: 06-21-2024 End: 06-21-2024 ambulatory YOSSI BOWER Not Available Start: 06-21-2024 End: 06-21-2024 Kay Bower MD Work Phone: [facility] Start: 06-21-2024 End: 06-21-2024 Sherrillo nancy Bower MD Work Phone: [facility] Start: 06-21-2024 End: 06-21-2024 Phys/qhp telephone evaluation 11-20 min Yossi Bower MD Work Phone: [facility] Comment on above: Diabetic mononeuropa thy associated with diabetes mellitus due to underlying condition ([facility]) (Primary Dx); CIDP (chronic inflammatory demyelinating polyneuropathy) ([facility]) Start: 06-02-2024 ambulatory LAURA Sona [facility] Start: 05-28-2024 End: 05-28-2024 Mikhailboo nancy Bower MD Work Phone: [facility] Start: 05-28-2024 End: 05-28-2024 Mikhailboo nancy Bower MD Work Phone: [facility] Start: 05-28-2024 End: 05-28-2024 Office outpatient visit 25 minutes Yossi Bower MD Work Phone: [facility] Comment on above: CIDP (chronic inflam matory demyelinating polyneuropathy) ([facility]) (Primary Dx) Start: 05-28-2024 End: 05-28-2024 ambulatory YOSSI BOWER Not Available Start: 05-18-2024 ambulatory TIFFANIE LU [facility] Start: 03-24-2024 End: 03-24-2024 ambulatory JU CERVANTES Not Available Start: 03-22-2024 End: 03-22-2024 Emergency department patient visit [facility] Start: 03-09-2024 End: 03-09-2024 ambulatory JU CERVANTES Not Available Start: 02-25-2024 End: 02-25-2024 ambulatory YOSSI BOWER Not Available Start: 01-29-2024 End: 02-01-2024 Katie Irwin MD Work Phone: [facility] Start: 01-22-2024 End: 01-22-2024 ambulatory JU CERVANTES Not Available Start: 01-21-2024 End: 01-21-2024 ambulatory JU CERVANTES Not Available Start: 01-06-2024 End: 01-06-2024 ambulatory JU ALYI Not Available Start: 11-29-2023 End: 12-08-2023 Evaluation and management of inpatient CHARLEE [facility] Start: 11-29-2023 End: 12-08-2023 Evaluation and management of inpatient Abdirahman Hunt MD [facility] Stepdown Start: 11-28-2023 End: 11-29-2023 Emergency department patient visit [facility] Start: 11-28-2023 End: 12-01-2023 ambulatory DIOGENES JENNIFER [facility] Start: 11-25-2023 End: 11-26-2023 ambulatory YUDITH MARTINEZ [facility] Start: 11-19-2023 End: 11-19-2023 Subsequent hospital visit by physician [facility] 1 [facility] Non-Invasive Cardiology Comment on above: Canceled (Patient co ndition) Start: 11-06-2023 End: 11-07-2023 ambulatory [facility] Facility:[facility] Start: 11-06-2023 End: 11-06-2023 ambulatory [facility] Facility:[facility] Start: 11-06-2023 End: 11-06-2023 Patient encounter procedure Obed Florian MD Work Phone: Neurology Comment on above: Diabetic polyneuropa thy associated with type 2 diabetes mellitus (HCC) [E11.42] (Primary Dx); Weakness; Obesity, Class III, BMI 40-49.9 (morbid obesity) (HCC) Start: 10-10-2023 ambulatory [facility] Start: 10-08-2023 End: 10-14-2023 Emergency department patient visit [facility] Start: 09-19-2023 End: 09-20-2023 ambulatory [facility] Facility:[facility] Start: 09-12-2023 Telephone encounter Shane bowling PA-C Work Phone: [facility] Comment on above: DBS problem Start: 08-11-2023 End: 08-12-2023 ambulatory Ramon Mendiola MD Facility: [facility] Start: 07-07-2023 Telephone encounter Wesley Rose MD Work Phone: [facility] Start: 02-20-2023 End: 02-21-2023 ambulatory SURI BROWNLEE Facility:[facility] Start: 02-03-2023 End: 03-05-2023 ambulatory SHAIKH Brenda DEWEY Facility:[facility] Start: 01-07-2023 End: 01-08-[address] SAY MCCORMICK . Facility:[facility] Start: 01-06-2023 End: 01-31-2023 ambulatory SHAIKH Brenda DEWEY Facility:[facility] Start: 12-04-2022 End: 01-03-2023 ambulatory SHAIKH Brenda DEWEY Facility:[facility] Start: 11-06-2022 End: 12-04-2022 ambulatory SHAIKH Brenda SIMOND Facility:[facility] Start: 10-07-2022 End: 11-06-2022 ambulatory SHAIKH Brenda SIMOND Facility:[facility] Start: 09-05-2022 End: 10-06-2022 ambulatory CARMICHAEL H MACO Facility:[facility] Start: 08-06-2022 End: 09-04-[address] SAY MCCORMICK . Facility:[facility] Start: 07-10-2022 Encounter for preprocedural laboratory examination DIOGENES RODRIGUEZ [facility] Start: 07-08-2022 End: 07-09-2022 ambulatory DIOGENES LUNDCKO [...] HIDALGO Facility:[facility] Start: 05-06-2022 End: 06-05-2022 ambulatory CARMICHAELJACEK ROLDANSTAN Facility:[facility] Start: 04-05-2022 End: 05-03-2022 ambulatory CARMICHAELJACEK CHEJHOANManpreet Facility:[facility] Start: 01-23-2022 Telephone encounter Wesley Rose [...] Chronic obstructive pulmonary disease, unspecified COPD type ([facility]); Tobacco use; Tracheal stenosis; Gastroesophageal reflux disease, unspecified whether esophagitis present; Pulmonary embolus with infarction ([facility]); Congestive heart failure, unspecified HF chronicity, unspecified heart failure type ([facility]); Stage 3 chronic kidney disease, unspecified whether stage 3a or 3b CKD ([facility]) 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 [...] establishment Pacc Main 3 Work Phone: [facility] Start: 01-21-2022 End: 01-21-2022 Preprocedural examination done Pacc Main 3 Work Phone: Pre Anesthesia Start: 01-04-2022 Telephone encounter Harris chowdhury MD Work Phone: [facility] Comment on above: DBS MARIA G message Start: 11-26-2021 End: 11-26-2021 ambulatory Sanjay Dooley Other [employer] Other Start: 11-26-2021 Telephone encounter Sanjay Dooley [facility] Start: 11-13-2021 End: 11-13-2021 ambulatory Sanjay Baklayos Other [employer] Other Start: 11-13-2021 Office outpatient ne w 45 minutes Sanjay Dooley [facility] Start: 11-13-2021 Telephone encounter Sanjay Dooley [facility] Start: 07-21-2021 End: 07-27-2021 ambulatory JESUS BAUDILIO Facility:[facility] Start: 05-29-2021 ambulatory Andry LIU Facility :[facility] Procedures Date Procedure Procedure Detail Performing [...] examinati on foot 2 views Rosalia Mobley [employer] Work Phone: Start: 12-05-2023 Glucose blood reagen [...] Phone: Start: 12-02-2023 EEG [employer] Work Phone: Start: 12-02-2023 Glucose blood reagen [...] quantitative Halina Lugo MD Work Phone: Start: 3 End: 12-01-2023 Ecg routine ecg w/least 12 lds i&r only Jackie Rivas MD Work Phone: Start: 12-01-2023 Glucose blood reagen t strip Polly Ramos MD Work Phone: Start: 12-01-2023 Radiologic exam swal low function contrast study Polly Ramos MD Work Phone: Start: 12-01-2023 Ct cervical spine w/ o contrast material Carmelo Pearsonri DO Work Phone: Start: 12-01-2023 Glucose blood [...] spine w/ o contrast material Crystal Nick [employer] Work Phone: Start: 11-30-2023 End: 11-30-2023 Assay [...] By: #### A 1C #### [facility] [address] [address] [address] Miah Buck Start: 07-26-2021 Resection of [...] Discussion Prostate Cancer Screening Discussion [facility] Start: 02-21-2028 Prostate specific antigen measurement Prostate Cancer Screening Discussion [facility] Start: 2025 Pneumococcal 0-64 years Vaccine (3 - PPSV23 or PCV20) Pneumococcal 0-64 years Vaccine (3 - PPSV23 or PCV20) [facility] Start: 2025 Pneumococcal vaccination [facility] Start: 06-06-2025 Influenza vaccination Influenza Vaccine (#1) [facility] Start: 02-24-2025 Screening for malignant neoplasm of colon [facility] Start: 12-02-2024 GFR test (Diabetes, CKD 3-4, OR last GFR 15-59) GFR test (Diabetes, CKD 3-4, OR last GFR 15-59) [facility] Start: 11-25-2024 Hemoglobin A1c measurement A1C test (Diabetic or Prediabetic) [facility] Start: 09-24-2024 End: 09-24-2024 Patient encounter procedure 09/24/2024 11:30 AM EST Office Visit [facility] [address] [place] [address] Yossi Bower MD [address] [place] [address] [facility] Start: 07-30-2024 End: 07-30-2024 Patient encounter procedure [facility] Comment on above: Arrived Start: 06-21-2024 End: 06-21-2024 Patient encounter procedure 06/21/2024 12:00 PM EDT Office Visit [facility] [address] [place] [address] Yossi Bower MD [address] [facility] [address], [place] [id number] [facility] Start: 06-06-2024 Influenza vaccination [facility] Start: 05-28-2024 End: 05-28-2024 Patient encounter procedure 05/28/2024 11:40 AM EDT [facility] [address] [facility] [address] [place] [address] Yossi Bower MD [address] [facility] [address], [place] [id number] Arrived [facility] Comment on above: Arrived Start: 01-15-2024 End: 01-15-2024 Patient encounter procedure 01/15/2024 11:40 AM EDT Office Visit [facility] Neurology Specialist [address] [place] [address] [address] [place] [phone] [place] [address] [place] [address], [address] [place], [place] [address] [address]W labs CT and ophthalmology referral [facility] Neurology Specialist Comment on above: 6W labs CT and ophthalmology referral [facility] Start: 12-16-2023 End: 12-16-2023 Patient encounter procedure 12/16/2023 2:00 PM EDT Procedure visit [facility] Physical Medicine and Rehabilitation [address] [place] [address] Evelyn Claire MD [address] [place] [address] emg: ble (has heart monitor implanted- not pacemaker) [facility] Comment on above: emg: ble (has heart monitor implanted- n ot pacemaker) Start: 11-28-2023 End: 11-28-2023 Patient encounter procedure 11/28/2023 1:00 PM EST Appointment [facility] Non-Invasive Cardiology [address] [phone] MEDIA - R/S W/ PT GWEN 11/19/23 BB [facility] Non-Invasive Cardiology Comment on above: MEDIA - R/S W/ PT GWEN 11/19/23 BB Start: 11-25-2023 End: 11-25-2023 Patient encounter procedure 11/25/2023 11:40 AM EST Office Visit [facility] Neurology Specialist [address] [place] [address] [place] [phone] Yudith Martinez PA [address] [place] [address], [address] [place], [place] [phone] 4W swallow study double vision [facility] Neurology Specialist Comment on above: 4W swallow study double vision Start: 11-04-2023 End: 11-04-2024 Tilt table Tilt table CV Cardiac Diagnostics Routine Syncope and collapse Expected: 11/04/2023, Expires: 11/04/2024 [facility] [employer] Work Phone: Comment on above: Expected: 11/04/2023, Expires: Start: 10-27-2023 Adult BMI Screening [facility] Start: 10-27-2023 Complete blood count Hemoglobin/Hematocrit [facility] Start: 10-27-2023 Creatinine measurement Serum Creatinine [facility] Start: 10-27-2023 Serum Creatinine Serum Creatinine [facility] Start: 10-27-2023 Tobacco Screening [facility] Start: 10-06-2023 Annual Wellness Visit (Medicare Advantage) Annual Wellness Visit (Medicare Advantage) [facility] Start: 06-06-2023 Covid-19 Vaccine () Covid-19 Vaccine ( season) [facility] Start: 06-06-2023 Influenza vaccination Influenza Vaccine (#1) [facility] Start: 05-06-2023 Influenza vaccination Flu vaccine (#1) [facility] Start: 01-21-2023 HEMOGLOBIN/HEMATOCRIT HEMOGLOBIN/HEMATOCRIT [facility] Start: 01-21-2023 SERUM CREATININE SERUM CREATININE [facility] Start: 11-28-2022 SERUM CREATININE SERUM CREATININE [facility] Start: 06-06-2022 Influenza vaccination INFLUENZA (Season Ended) [facility] Start: 04-22-2022 Hemoglobin A1c measurement HbA1C [facility] Start: 04-22-2022 Hemoglobin A1c/Hemoglobin.total in Blood HBA1C [facility] Start: 01-20-2022 End: 03-22-2022 Hemoglobin A1c/Hemoglobin.total in Blood HGB A1C Lab Routine Type 2 diabetes mellitus with other specified complication, with long-term current use of insulin (HCC) Pre-op evaluation Expected: 01/20/2022, Expires: 03/22/2022 [facility] Work Phone: Comment on above: Expected: 01/20/2022, Expires: 2 Start: 02-03-2021 COVID-19 VACCINE (2 - Booster for Mary Ellen series) COVID-19 VACCINE (2 - Booster for Mary Ellen series) [facility] Start: 2020 Hepatitis B Vaccine (1 of 3 - Risk 3-dose series) Hepatitis B Vaccine (1 of 3 - Risk 3-dose series) [facility] Start: 2020 Respiratory Syncytial Virus (RSV) or age 60 yrs+ (1 - 1-dose 60+ series) Respiratory Syncytial Virus (RSV) or age 60 yrs+ (1 - 1-dose 60+ series) [facility] Start: 2020 RSV Vaccine (1 - 1-dose 60+ series) RSV Vaccine (1 - 1-dose 60+ series) [facility] Start: 08-19-2020 Diabetic foot examination Diabetic foot exam [facility] Start: 12-12-2018 Hemoglobin A1c/Hemoglobin.total in Blood HBA1C [facility] Start: 08-29-2016 Urine screening for protein Diabetic Alb to Cr ratio (uACR) test [facility] Start: 08-09-2016 GFR test (Diabetes, CKD 3-4, OR last GFR 15-59) GFR test (Diabetes, CKD 3-4, OR last GFR 15-59) [facility] Start: 07-18-2016 Lipid panel Lipids [facility] Start: 05-05-2016 Hemoglobin A1c measurement A1C test (Diabetic or Prediabetic) [facility] Start: 2015 PROSTATE CANCER SCREENING DISCUSSION PROSTATE CANCER SCREENING DISCUSSION [facility] Start: 07-27-2015 Glaucoma screening Diabetic retinal exam [facility] Start: 2010 Administration of varicella zoster vaccine Zoster (Shingles) Vaccine (1 of 2) [facility] Start: 2010 Shingles vaccine (1 of 2) Shingles vaccine (1 of 2) [facility] Start: 2010 SHINGRIX VACCINE (1 of 2) SHINGRIX VACCINE (1 of 2) [facility] Start: 2005 COLOGUARD (FIT-DNA) COLOGUARD (FIT-DNA) [facility] Start: 2005 Colonoscopy COLONOSCOPY [facility] Start: 2005 COLORECTAL CANCER SCREENING COLORECTAL CANCER SCREENING [facility] Start: [address] COLONOGRAPHY [facility] Start: 2005 FECAL OCCULT BLOOD FECAL OCCULT BLOOD [facility] Start: 2005 Screening for malignant neoplasm of colon [facility] Start: 2005 SIGMOIDOSCOPY SIGMOIDOSCOPY [facility] Start: 10-07-2000 Urine microalbumin profile DTaP,Tdap,Td Vaccine (1 - Tdap) [facility] Start: 1990 Zoledronic acid therapy Alpha-1 Antitrypsin Deficiency Screening [facility] Start: 1979 DTaP,Tdap and Td Vaccines (1 - Tdap) DTaP,Tdap and Td Vaccines (1 - Tdap) [facility] Start: 1979 DTaP/Tdap/Td vaccine (1 - Tdap) DTaP/Tdap/Td vaccine (1 - Tdap) [facility] Start: 1979 Urine microalbumin profile [facility] Start: 1978 ANNUAL PCP TEAM CHRONIC DISEASE VISIT ANNUAL PCP TEAM CHRONIC DISEASE VISIT [facility] Start: 1978 BP CONTROLLED (<130/80) BP CONTROLLED (<130/80) [facility] Start: 1978 Hepatitis B surface antibody level LDL CHOLESTEROL [facility] Start: 1978 HEPATITIS C SCREENING HEPATITIS C SCREENING [facility] Start: 1978 Hepatitis C screening Hepatitis C Screening [facility] Start: 1978 HIV SCREENING HIV SCREENING [facility] Start: 1978 HIV screening HIV Screening [facility] Start: 1975 HIV screening HIV screen [facility] Start: 1972 Depression Monitoring Depression Monitoring [employer] Start: 1972 Depression Screening Depression Screening [facility] Start: 1970 3 comp foot exam completed DIABETIC FOOT EXAM [facility] Start: 1970 Diabetic foot examination Diabetic Foot Exam [facility] Start: 1970 Glaucoma screening Dilated Retinal Exam [facility] Start: 1970 Hepatitis B screening URINE ALBUMIN:CREATININE RATIO [facility] Start: 1970 Hepatitis C antibody, confirmatory test DILATED RETINAL EXAM [facility] Start: 1960 Screening for malignant neoplasm of colon [facility] Healthcare Adult NIV/Positive Airway Pressure Adult NIV/Positive Airway Pressure Respiratory Care Routine Every 4hr until discontinued starting 11/30/2023 [employer] [facility] Comment on above: Every 4hr until discontinued starting Continuous pulse oximetry Pulse oximetry, continuous Respiratory Care Routine Every 4hr until discontinued starting 12/03/2023 [employer] [facility] Comment on above: Every 4hr until discontinued starting Glucose [Mass/volume ] in Serum or Plasma [facility] Comment on above: 4X Daily (AC & HS) until discontinued st arting 11/30/2023 As Needed until disc ontinued starting 11/30/2023 Hemoglobin A1c/Hemoglobin.total in Blood HGB A1C Lab Routine Type 2 diabetes mellitus with other specified complication, with long-term current use of insulin (HCC) Pre-op evaluation 01/21/2022 9:30 AM EDT [facility] Work Phone: End: 12-23-2023 Hemoglobin and Hematocrit Hemoglobin and Hematocrit Lab Routine Every Other Day for 10 Occurrences starting 12/05/2023 until 12/23/2023, 2 completed [employer] [facility] Comment on above: Every Other Day for 10 Occurrences start ing 12/05/2023 until 12/23/2023, 2 completed Oxygen therapy [[facility] Data Set] Initiate Oxygen Therapy Protocol Respiratory Care Routine As Needed until discontinued starting 11/29/2023 [employer] [facility] [facility] Comment on above: As Needed until discontinued starting End: 12-23-2023 Platelets [#/volume] in Blood Platelet Count Lab Routine Every Other Day for 10 Occurrences starting 12/05/2023 until 12/23/2023, 2 completed [employer] [facility] [facility] Comment on above: Every Other Day for 10 Occurrences start ing 12/05/2023 until 12/23/2023, 2 completed End: 12-14-2023 Protime-INR Protime-INR Lab Routine Daily for 7 Days starting 12/08/2023 until 12/14/2023, 1 completed [employer] [facility] [facility] Comment on above: Daily for 7 Days starting 12/08/2023 unt il 12/14/2023, 1 completed End: 11-30-2023 CONTRACTING OFFICER clinical swallow evaluation CONTRACTING OFFICER clinical swallow evaluation CONTRACTING OFFICER Routine One Time for 1 Occurrences starting 11/30/2023 until 11/30/2023 [employer] [facility] Work Phone: Comment on above: One Time for 1 Occurrences starting 11/07 until 11/30/2023 End: 11-30-2023 SPECIMEN REJECTION [employer] [facility] [facility] Comment on above: Once for 1 Occurrences starting 11/30/19 until 11/30/2023 End: 11-30-2023 Speech and language therapy regime CONTRACTING OFFICER eval and treat CONTRACTING OFFICER Routine One Time for 1 Occurrences starting 11/30/2023 until 11/30/2023 [employer] [facility] [facility] Comment on above: One Time for 1 Occurrences starting 11/07 until 11/30/2023 STAPH AUREUS PCR STAPH AUREUS PC R Lab Routine 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) Ordered: 01/21/2022 [facility] Work Phone: Comment on above: Ordered: 01/21/2022 [facility] Immunizations Immunization Date Immunization Notes Care Provider Tierney ingram 07-19-2021 Influenza, injectabl e, Madin [place] Canine Kidney, preservative free, quadrivalent Yossi Bower MD Work Phone: [facility] 07-19-2021 influenza virus vaccine, unspecified formulation Wesley Rose MD Work Phone: [facility] 07-07-2020 Influenza, injectabl e, Madin [place] Canine Kidney, preservative free, quadrivalent Harris Faustin MD Work Phone: [facility] 08-01-2019 influenza virus vaccine, unspecified formulation Harris Faustin MD Work Phone: [facility] 08-10-2018 influenza, injectabl e, quadrivalent, preservative free Harris Faustin MD Work Phone: [facility] 07-24-2018 Influenza, injectabl e, Madin [place] Canine Kidney, preservative free, quadrivalent Harris Faustin MD Work Phone: [facility] 09-10-2017 influenza virus vaccine, unspecified formulation Harris Faustin MD Work Phone: [facility] 08-11-2017 pneumococcal polysaccharide vaccine, 23 valent Harris Faustin MD Work Phone: [facility] 08-05-2016 influenza virus vaccine, unspecified formulation Harris Faustin MD Work Phone: [facility] 11-13-2015 pneumococcal conjuga te vaccine, 13 valent Harris Faustin MD Work Phone: [facility] 07-18-2015 influenza virus vaccine, unspecified formulation [address] 07-18-2015 influenza virus vaccine, whole virus Harris Faustin MD Work Phone: [facility] 07-18-2015 influenza, seasonal, injectable Laura Irwin MD Work Phone: [facility] 07-06-2015 influenza, high dose seasonal, preservative-free Harris Faustin MD Work Phone: [facility] 09-13-2014 influenza, injectabl e, quadrivalent, preservative free Harris Faustin MD Work Phone: [facility] 08-06-2014 influenza virus vaccine, unspecified formulation Yossi Bower MD Work Phone: [facility] 06-25-2013 influenza, seasonal, injectable, preservative free Harris Faustin MD Work Phone: [facility] 06-17-2012 influenza, seasonal, injectable Harris Faustin MD Work Phone: [facility] 09-11-2010 pneumococcal polysaccharide vaccine, 23 valent Harris Faustin MD Work Phone: [facility] 10-06-2002 influenza virus vaccine, unspecified formulation Yossi Bower MD Work Phone: [facility] 10-06-2000 TD(adult) unspecifie d formulation Yossi Bower MD Work Phone: [facility] Payers Date Payer Category Payer Medicare (Managed Care) THANIA VILLANUEVA [id number] 2024 Medicare [id number] 2021 Medicare [id number]. [id number] 2021 Medicare [id number] [id number]. [id number] 2021 Unknown [id number] 2021 Unknown [id number] 2019 Unknown [place] [employer] [facility] [id number] 2019-Present [phone] [facility] [id number] [place] [address] [facility] [id number]. [id number] 2019 Medicaid 2018 Unknown [id number] 1960 Unknown [id number] 2.16.840.1.703279.3.579.2. 647 1960 Unknown [id number] 2.16.840.1.419820.3.579.2. 593 1960 Unknown [id number] 2.16.840.1.555194.3.579.2. 593 1960 Unknown [id number] 2.16.840.1.837000.3.579.2. 593 1960 Unknown [id number] 2.16.840.1.875299.3.579.2. 593 1960 Unknown [id number] 2.16.840.1.750938.3.579.2. 593 1960 Unknown [id number] 2.16.840.1.203881.3.579.2. 593 1960 Unknown [id number] 2.16.840.1.479435.3.579.2. 593 1960 Unknown [id number] 2.16.840.1.677247.3.579.2. 593 1960 Unknown [id number] 2.16.840.1.753275.3.579.2. 593 1960 Unknown [id number] 2.16.840.1.520554.3.579.2. 593 1960 Unknown [id number] 2.16.840.1.415950.3.579.2. 593 1960 Unknown [id number] 2.16.840.1.824017.3.579.2. 593 1960 Unknown [id number] 2.16.840.1.525392.3.579.2. 593 1960 Unknown [id number] 2.16.840.1.779940.3.579.2. 593 1960 Unknown [id number] 2.16.840.1.151265.3.579.2. 593 1960 Unknown [id number] 2.16.840.1.850583.3.579.2. 593 1960 Unknown [id number] 2.16.840.1.669878.3.579.2. 593 1960 Unknown [id number] 2.16.840.1.705072.3.579.2. 593 1960 Unknown [id number] 2.16.840.1.822636.3.579.2. 593 1960 Unknown [id number] 2.16.840.1.680775.3.579.2. 196 1960 Unknown [id number] 2.16.840.1.855721.3.579.2. 1286 1960 Unknown [id number] 2.16.840.1.918211.3.579.2. 1286 1960 Unknown [id number] 2.16.840.1.974524.3.579.2. 1286 1960 Unknown [id number] 2.16.840.1.317824.3.579.2. 1286 1960 Unknown [id number] 2.16.840.1.376695.3.579.2. 1286 1960 Unknown [id number] 2.16.840.1.296855.3.579.2. 1286 1960 Unknown [id number] 2.16.840.1.759033.3.579.2. 177 1960 Unknown [id number] 2.16.840.1.617619.3.579.2. 173 1960 Unknown [id number] 2.16.840.1.551971.3.579.2. 173 1960 Unknown [id number] 2.16.840.1.768604.3.579.2. 175 1960 Unknown [id number] 2.16.840.1.655523.3.579.2. 1259 1960 Unknown [id number] 2.16.840.1.516898.3.579.2. 1259 1960 Unknown [id number] 2.16.840.1.644307.3.579.2. 9 1960 Unknown [id number] 2.16.840.1.916545.3.579.2. 1259 1960 Unknown [id number] 2.16.840.1.532984.3.579.2. 1259 1960 Unknown [id number] 2.16.840.1.132716.3.579.2. 1259 1960 Unknown [id number] 2.16.840.1.459819.3.579.2. 1259 1960 Unknown [id number] 2.16.840.1.492840.3.579.2. 1259 1960 Unknown [id number] 2.16.840.1.683948.3.579.2. 1259 1960 Unknown [id number] 2.16.840.1.955486.3.579.2. 727 1960 Unknown [id number] 2.16.840.1.695516.3.579.2. 1286 1960 Unknown [id number] 2.16.840.1.462572.3.579.2. 1286 1959 Private Health Insurance [id number] Unknown [id number] 2..840.1.270963.19 Social History Date Type Detail Facility Start: 05-31-2013 End: 01-06-2024 Tobacco smoking status NHIS Never smoked tobacco [facility] Work Phone: Start: 05-31-2013 End: 06-12-2018 Tobacco use and exposure Former smokeless tobacco user [facility] Work Phone: End: 09-17-2015 History of tobacco use Chews Tobacco [facility] Work Phone: Start: 06-15-2021 End: 10-27-2022 Alcohol intake Current non-drinker of alcohol (finding) [facility] Start: 01-04-2020 History SDOH Alcohol Frequency 1 [facility] Start: 01-04-2020 Tobacco Comment [address] [facility] Start: 1960 Sex Assigned At Male [facility] Start: 05-31-2013 End: 09-19-2023 Tobacco use and exposure User of smokeless tobacco [facility] Work Phone: Start: 01-11-2022 End: 01-21-2022 Exposure to SARS-CoV-2 (event) Not sure [facility] Start: 01-04-2020 End: 07-30-2024 Sex Assigned At [facility] History of tobacco use Cigarette Smoker [facility] Work Phone: Start: 01-04-2020 End: 07-30-2024 History of Social function [facility] How often to you hav e a drink containing alcohol? Never [facility] Average Number of Drinks Not on file [facility] Start: 08-16-2019 Gender identity Identifies as male gender (finding) [facility] Start: 08-16-2019 Sexual orientation Heterosexual (fin ding) [facility] Start: 10-28-2023 End: 12-03-2023 Alcohol intake Lifetime non-drinker (finding) [employer] Has the electric, gas, oil, or water company threatened to shut off services in your home in past 12Mo No [employer] (I/We) worried whether (my/our) food would run out before (I/we) got money to buy more. Never true [employer] [facility] Start: 01-06-2024 Tobacco use and exposure Smokeless tobacco non-user [facility] Start: 1960 Sex assigned at Not on file P [employer] [facility] NEGATED: Highlighted rowStart: NINF History of tobacco use Passive smoker [facility] Medical Equipment Procedure Code Equipment Code Equipment Origin al Text Equipment Identifier Dates Ipg Activa Sc Db s Dual Extn - [id number] Start: 06-30-2013 Comment on above: Description: ACTIVA SC Multi-program Leonor rostimulator for deep Brain Stimulation Neurostimulator Activa Sc 0-10.5v 2-250hz 0-25.5ma 2.4inx2.2in .4in - [id number]_[email or web address] Start: 07-24-2016 Neurostimulator Activa Sc 0-10.5v 2-250hz 0-25.5ma 2.4inx2.2in .4in - [id number]_[email or web address] Start: 06-30-2019 Neurostimulator Activa Sc 0-10.5v 2-250hz 0-25.5ma 2.4inx2.2in .4in - [id number]_[facility] Start: 01-30-2022 [id number] Start: 06-29-2014 Comment on above: Use as directed sq bid Nicholas Iol 0d +18d Mod L Acrsf Rpl [id number] - [id number] - [id number]_[facility] Start: 07-20-2019 Nicholas Iol 0d +18d Mod L Acrsf Rpl [id number] - [id number] - [id number]_[facility] Start: 08-17-2019 Clinical Notes 07-27-2021 to 11-29-2024 Telephone Encounter - Cheryl Mcdonough - 08/12/2024 8:56 AM ESTTelephone Encounter - Cheryl Mcdonough - 08/12/2024 8:56 AM Magdalena Bower MD - 07/30/2024 11:50 AM EDTDischarge Instr - CHERIE Note Date & Type Note Facility 11-29-2024 Note Multidisciplinary de ep brain stimulation clinic Provider: Mario Van MD 11/29/24 HPI: Andry Pierre is a 64 y.o. male with essential tremor, seen in multidisciplinary DBS clinic today for initial DBS programming. Left VIM DBS was placed for essential tremor around [id number] at [facility]. Later he was re-evaluated for right VIM [...] Device: left Activa SC deep brain stimulator ([id number]?), [employer] 2024 DBS implant date: 2005, IPG [...] History: Diagnosis Date CHF (congestive heart failure) ([facility]) Chronic inflammatory demyelinating neuropathy ([facility]) Chronic kidney disease CIDP (chronic inflammatory demyelinating polyneuropathy) ([facility]) Diabetes mellitus ([facility]) Dyslipidemia GERD (gastroesophageal reflux disease) Hypertension Obstructive sleep apnea Pulmonary embolism ([facility]) Past Surgical History: Procedure Laterality Date ANKLE SURGERY Bilateral CARDIAC SURGERY loop recorder CHOLECYSTECTOMY DEEP BRAIN STIMULATOR PLACEMENT 10/14/2024 IPG replacement, [facility], Dr. Arvizu INSERTION / REMOVAL CRANIAL [...] Review Audit Reviewed by Kristin Saucedo MA (Wharfinger Chief) on 11/02/24 at 1410 Medication Order Taking? Sig Documenting Provider Last Dose Status allopurinol (Zyloprim) 100 mg tablet [id number] Yes Take 100 mg by mouth 1 (one) time each day at the same time. Historical ProviderMD Taking Active amitriptyline (Elavil) 25 mg tablet [id number] Yes TAKE 2 TABLETS BY MOUTH ONCE DAILY AT BEDTIME FOR 30 DAYS Historical ProviderMD Taking Active apixaban (Eliquis) 5 mg tablet [id number] Yes Take 5 mg by mouth in the morning and at bedtime. Historical Provider, Taking Active atorvastatin (Lipitor) 40 mg tablet [id number] Yes Take 40 mg by mouth at bedtime. Historical Provider, Taking Active baclofen (Lioresal) 10 mg tablet [id number] Yes TAKE 1/2-1 TABLET BY MOUTH THREE TIMES DAILY Historical ProviderMD Taking Active candesartan (Atacand) 8 mg tablet [id number] Take 1 tablet (8 mg) by mouth in the morning. Suri Brownlee MD 07/26/24 4731 cetirizine (ZyrTEC) 10 mg tablet [id number] Yes Take 10 mg by mouth in the morning and at bedtime. Historical Provider, Taking Active cholecalciferol, vitamin D3, 50 mcg (2,000 unit) (more content not included)... [facility] 11-02-2024 Note Neurosurgery Clinic Note Chief Complaint: [...] kind referral from Ju Cervantes NP with [facility] neurology in [place] for evaluation of a nonfunctional implanted pulse generator. A portion of his history is obtained from the medical record. Somewhere between 2000 and 2005 he had undergone placement of a left VIM DBS with a left single channel IPG by Dr. Glover, for treatment of essential tremor. He had undergone several IPG exchanges the last of which was in 2019 at the [facility]. In 2019, placement of a right VIM electrode was considered at the [facility] and the patient underwent a substantial workup, [...] disease Asthma Neuropathy CHF (congestive heart failure) ([facility]) Chronic deep vein thrombosis (DVT) of proximal vein of both lower extremities ([facility]) CKD (chronic kidney disease) Congenital heart disease COPD (chronic obstructive pulmonary disease) ([facility]) History of DVT (deep vein thrombosis) Diastolic dysfunction Difficult intravenous access Dyslipidemia Leg edema Elevated PSA Esophageal reflux Essential hypertension Hematuria, gross Hyperlipidemia Hypokalemia Low back pain BMI 45.0-49.9, adult ([facility]) Obstructive sleep apnea syndrome Other diseases of pharynx, not elsewhere classified(478.29) Parkinson's disease ([facility]) History of pulmonary embolus (PE) Recurrent major depression in partial remission SOB (shortness of breath) Subarachnoid bleed ([facility]) Tracheal stenosis Tremor Type 2 diabetes mellitus without complication ([facility]) Urge incontinence of urine Urinary tract infection without hematuria Volume overload Syncope and collapse 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 ([facility]) Chronic heart failure with preserved ejection fraction ([facility]) Anxiety state Cocaine dependence in remission ([facility]) Disorder of refraction and accommodation Gout History of tracheostomy Hypersomnia with sleep apnea Major depressive disorder, recurrent, moderate ([facility]) Morbid obesity ([facility]) Nondependent cannabis abuse in remission Presbyopia Cellulitis Abdominal pain Acute encephalopathy Acute renal failure (ARF) Altered awareness, transient Altered mental status Bilateral lower extremity edema Bilateral primary osteoarthritis of knee Choledocholithiasis Cholelithiases Chronic anticoagulation Chronic inflammatory demyelinating polyneuritis ([facility]) Degeneration of intervertebral disc of lumbar region Depression Diabetic mononeuropathy associated with diabetes mellitus due to underlying condition ([facility]) Diabetic neuropathy ([facility]) DVT (deep venous thrombosis) ([facility]) Dysphagia Encounter for chronic pain management Equinus contracture of right ankle History of hematemesis History of stroke Irritable bowel syndrome Lumbar facet arthropathy Lumbar radiculopathy Memory loss Multiple falls Muscle cramps Need for immunization against influenza Pulmonary embolus with infarction ([facility]) Renal disease S/P deep brain stimulator placement DJD (degenerative joint disease) Staring ep (more content not included)... [facility] 10-14-2024 Note Patient: Andry arthur Procedure Summary Date: 10/14/24 Room / Location: [facility] OPERATING ROOM 03 / [facility] Operating Room Anesthesia Start: 736 Anesthesia Stop: 826 Procedure: DEEP BRAIN STIMULATOR, IPG EXCHANGE Diagnosis: Parkinson's disease, unspecified whether dyskinesia present, unspecified whether manifestations fluctuate (CMS/HCC) (Parkinson's disease, unspecified whether dyskinesia present, unspecified whether manifestations fluctuate (CMS/HCC) [G20.A1]) Surgeons: Richard Arvizu MD Responsible Provider: Apolinar Morgan MD Anesthesia Type: MAC ASA Status: 3 Anesthesia Type: MAC Vitals Value Taken Time BP 105/65 10/14/24 0825 Temp 36 ???C (96.8 ???F) 10/14/24 08 Pulse 55 10/14/24 08 Resp 16 10/14/24 0825 SpO2 93 % 10/14/24 0825 Anesthesia Post Evaluation Patient location during evaluation: PACU Patient participation: complete - patient participated Level of consciousness: awake and alert Pain management: adequate Airway patency: patent Cardiovascular status: acceptable Respiratory status: acceptable Hydration status: acceptable Comments: Baseline neuro function. Patient is hemodynamically stable and is able to be discharged from PACU per anesthesia protocol. No notable events documented. [facility] 10-14-2024 Note Patient: Andry arthur Procedure Information Date/Time: 10/14/24729 Procedure: DEEP BRAIN STIMULATOR, IPG EXCHANGE - Standard OR Bed, Supine, [employer] REP NOTIFIED 10/04 JK Location: [facility] OPERATING ROOM 03 / [facility] Operating Room Surgeons: Richard Arvizu MD Relevant [...] (+) Type 2 diabetes mellitus with hyperglycemia ([facility]) (+) Type 2 diabetes mellitus without complication ([facility]) GI (+) Esophageal reflux /Renal CKD, creatinine 1.87 (+) Acute renal failure (ARF) ([facility]) (+) CKD (chronic kidney disease) (+) Renal disease Neuro/Psych CIDP, left sided weakness. Right lower extremity 0/5 strength and numb. Relates history of four strokes in the past. (+) 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 ([facility]) Pulmonary (+) Asthma (+) COPD (chronic obstructive pulmonary disease) ([facility]) Other History of DVT, on eliquis which [...] with attending and resident. Additional Equipment Requests [facility] 09-20-2024 Note Neurosurgery Consult Chief Complaint: Deep brain stimulator implanted pulse generator of service. History of Present Illness: Andry Pierre is a 63 y.o. right-handed male who presents in kind referral from Ju Cervantes NP with [facility] neurology in [place] for evaluation of a nonfunctional implanted pulse generator. A portion of his history is obtained from the medical record. Somewhere between 2000 and 2005 he had undergone placement of a left VIM DBS with a left single channel IPG by Dr. Glover, for treatment of essential tremor. He had undergone several IPG exchanges the last of which was in 2019 at the [facility]. In 2019, placement of a right VIM electrode was considered at the [facility] and the patient underwent a substantial workup, [...] disease Asthma Neuropathy CHF (congestive heart failure) ([facility]) Chronic deep vein thrombosis (DVT) of proximal vein of both lower extremities ([facility]) CKD (chronic kidney disease) Congenital heart disease COPD (chronic obstructive pulmonary disease) ([facility]) History of DVT (deep vein thrombosis) Diastolic dysfunction Difficult intravenous access Dyslipidemia Leg edema Elevated PSA Esophageal reflux Essential hypertension Hematuria, gross Hyperlipidemia Hypokalemia Low back pain BMI 45.0-49.9, adult ([facility]) Obstructive sleep apnea syndrome Other diseases of pharynx, not elsewhere classified(478.29) Parkinson's disease ([facility]) History of pulmonary embolus (PE) Recurrent major depression in partial remission ([facility]) SOB (shortness of breath) Subarachnoid bleed ([facility]) Tracheal stenosis Tremor Type 2 diabetes mellitus without complication ([facility]) Urge incontinence of urine Urinary tract infection without hematuria Volume overload Syncope and collapse 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 ([facility]) Chronic heart failure with preserved ejection fraction ([facility]) Anxiety state Cocaine dependence in remission ([facility]) Disorder of refraction and accommodation Gout History of tracheostomy Hypersomnia with sleep apnea Major depressive disorder, recurrent, moderate ([facility]) Morbid obesity ([facility]) Nondependent cannabis abuse in remission Presbyopia Cellulitis Abdominal pain Acute encephalopathy Acute renal failure (ARF) ([facility]) Altered awareness, transient Altered mental status Bilateral lower extremity edema Bilateral primary osteoarthritis of knee Choledocholithiasis Cholelithiases Chronic anticoagulation Chronic inflammatory demyelinating polyneuritis ([facility]) Degeneration of intervertebral disc of lumbar region Depression Diabetic mononeuropathy associated with diabetes mellitus due to underlying condition ([facility]) Diabetic neuropathy ([facility]) DVT (deep venous thrombosis) ([facility]) Dysphagia Encounter for chronic pain management Equinus contracture of right ankle History of hematemesis History of stroke Irritable bowel syndrome Lumbar facet arthropathy Lumbar radiculopathy Memory loss Multiple falls Muscle cramps Need for immunization against influenza Pulmonary embolus with infarction ([facility]) Renal disease S/P deep brain stimulator placement DJD (degenerative joint disease) Staring episodes Stroke risk Tracheostomy in place ([facility]) Type 2 diabetes mellitus with hyperglycemia ([facility]) Type II or unspecified type diabetes mellitus with renal manifestations, not stated as uncontrolled(250.40) Weakness Fall Diabetes mellitus ([facility]) Acute on chronic diastolic heart failure ([facility]) Other chest pain Past Medical History: Past Medical History: Diagnosis Date CHF (congestive heart failure) ([facility]) (more content not included)... [facility] 08-12-2024 Telephone encounter Note Patient called in [...] suggest or prescribe to help please advise. [facility] 08-12-2024 Miscellaneous Notes Patient called in stating [...] help please advise. documented in this encounter [facility] 08-03-[address] Gomez- alba pedraza. I used abnormal CXR for pulmonary referral. Thanks. [facility] 07-30-2024 History of Present illness Narrative [...] Not at risk (06/02/2024) Received from [facility] PHQ-2 Patient Health Questionnaire-2 Score: 0 [...] reflexes: Roshni's absent. Ankle clonus absent. Coordination Vurzat-wf-wpia, rapid alternating movements and bezj-iu-ldtf normal bilaterally without dysmetria. Gait Normal casual, toe, heel and tandem gait. Romberg is absent. PROCEDURE: NONE ASSESSMENT AND PLAN: Diagnoses and all orders for this visit: CIDP (chronic inflammatory demyelinating polyneuropathy) ([facility]) - OXcarbazepine (Trileptal) 150 MG tablet; Take [...] (CVA) due to embolism of cerebral artery ([facility]) - OXcarbazepine (Trileptal) 150 MG tablet; Take 0.5 tablets (75 mg) by mouth in the morning and 0.5 tablets (75 mg) in the evening and 0.5 tablets (75 mg) before bedtime. Bilateral foot-drop - General supply request: Bilateral AFO braces I will send in order for bilateral AFO brace to [facility]. Follow up 8-12 weeks. documented in this encounter [facility] 07-26-2024 Note [place] [facility] Note Reason for cardiology [...] medical history of CHF (congestive heart failure) (CMS/[facility]), Chronic inflammatory demyelinating neuropathy (CMS/HCC), Chronic kidney [...] unit) capsule, Take (more content not included)... [facility] 07-13-2024 Note Pt is here for a thr ee month follow up. [facility] Consult Note Reason for Consultation: Syncope, s/p loop implant 01/09/23 07/13/24 Patient had a loop check done which revealed multiple episodes of bradycardia but no atrial fibrillation was seen. He is limited by his LE and UE weakness from CIDP and unable to tolerate infusion treatment. 10/21/23 Telephone apt today for follow up [facility] for chest pain. He was seen [...] reveals no events. Had recent ECHO at [place] which was normal. LOOP: ECHO 10/08/23 08/19/23: [...] in the morning and at bedtime. HYDROcodone-acetaminophen ([place]) 5-325 mg tablet indomethacin (Indocin) 50 mg capsule TAKE 1 CAPSULE BY MOUTH THREE TIMES A DAY NEEDED FOR PAIN WITH FOOD OR MILK insulin degludec (Tresiba FlexTouch) 100 unit/mL (3 mL) injection every 12 (twelve) hours. Jardiance 10 mg Take 25 mg by mouth 1 (one) (more content not included)... [facility] 06-21-2024 History of Present illness Narrative Images from the original note were not included. CHIEF COMPLAINT REASON FOR VISIT : HPI: Anrdy Pierre is a 63 y.o. male who [...] SCREEN: Past Medical History: Diagnosis Date Depression (CMS/[facility]) Diabetes mellitus (CMS/HCC) Difficulty walking Head injury [...] Not at risk (06/02/2024) Received from [facility] PHQ-2 Patient Health Questionnaire-2 Score: 0 [...] with diabetes mellitus due to underlying condition ([facility]/HCC) CIDP (chronic inflammatory demyelinating polyneuropathy) ([facility]) - thiamine (Vitamin B-1) 100 MG tablet; [...] interactions of medications. documented in this encounter [facility] 06-02-2024 Note HPI Reported by patient, [...] Follow up with Dr Davies after [facility] 05-28-2024 History of Present illness Narrative Images [...] with mobility. 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 He states all his fingers are numb. He states he recently stopped the Topamax about 3 weeks ago. But he states he is back on it. He states he has burning and tingling in his feet. He states he got bit by a spider about 3 years ago and he has a [place] around it and pain. He states everything else started around July last year. He states he has been getting worse. 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 The steroids do [...] Father Depression: At risk (11/04/2023) Received from [facility] PHQ-2 PHQ-2 score: 4 REVIEW OF SYMPTOMS: [...] reflexes: Roshni's absent. Ankle clonus absent. Coordination Xhyfsy-zk-vogm, rapid alternating movements and bomh-lu-wlpk normal bilaterally without dysmetria. Gait Normal casual, toe, heel and tandem gait. Romberg is absent. PROCEDURE: NONE ASSESSMENT AND PLAN: Diagnoses and all orders for this visit: CIDP (chronic inflammatory demyelinating polyneuropathy) ([facility]) Start thiamine (Vitamin B-1) 100 MG tablet; [...] care. Follow up documented in this encounter [facility] 01-29-2024 Miscellaneous Notes Primary care or clinic needs to prescribe this, not the ortho surgeon [facility] encounter Note Primary care or clinic needs to prescribe this, not the ortho surgeon [facility] Work Phone: 12-08-2023 History of Present illness Narrative Called report to Bee najera [place] of [facility] at [phone]. Answered all questions and advised that the patient will be leaving here around 8:00 PM tonight. Attempted to call report to [facility] [place] at [phone]. Was on hold for over 10 minutes. Images from the original note were not included. [facility] Office: [phone] Alberto Rice DO, Luciano Murphy DO, Humza [...] Kylie Morales MD, Pasha Roy MD, Daniel Swenosn MD, Marvin Sneed MD, Abdirahman Hunt MD, Da Moore MD, Geneva Casiano MD, Matthew Perez DO, Tk Connor DO, Jess Parker MD, Garett Valentine MD, Rosalia Mobley CNP, Criss Gray CNP, Lefty Matute CNP, Brittny Quinones, COLTON, Kacey Meeks, SHERYL, Sugey Barillas CNP, Mary Jo Bonner FACTORY PROCESS WORKERS, Jodi Granados, FACTORY PROCESS WORKERS, Sigrid Velásquez FACTORY PROCESS WORKERS, Janine Turpin PA-C, Sue Willams PA-C, Savi Iqbal CNP, Beckie Mello FACTORY PROCESS WORKERS, Nora Mace, FACTORY PROCESS WORKERS, Jyoti Rojo, PAVER INSTALLER, Ronda Sellers, FACTORY PROCESS WORKERS, Janell Hoyt, FACTORY PROCESS WORKERS, Caryl Gonzalez, FACTORY PROCESS WORKERS [facility] IN-PATIENT SERVICE [facility] Progress Note 12/08/2023 3:35 PM Name: Andry Pierre Acct: [id number] Room: [facility]0143-01 IP Day: 9 Admit Date: 11/29/2023 8:06 [...] brain stimulator 10/2008 who [address] [facility] 11/24 s/p fall in bathroom with acute left hip/upper thigh and back pain (hit head, no LOC) presents with No chief complaint on file. and is admitted to the hospital for the management of AMS (altered mental status). Patient transferred from [place] after undergoing tilt table evaluation for concern for orthostasis on 11/28/2022 with history of recurrent episodes of dizziness with history of stroke, complicated history. tilt table test complicated by worsening acute symptoms of dizziness with chest pain with altered sensorium. Although tilt test unremarkable for orthostasis, patient was evaluated in ED with acute symptoms and recommended admission [facility]. Unfortunately with bed [...] with occasional shortness of breath While in [place] ED patient did develop symptomatic hypoglycemia with blood sugars in the 50s with symptoms of feeling funny . 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 Subsequently returned status post fall 11/24 with [...] of Arthritis, Asthma, CHF (congestive heart failure) ([facility]), CKD (chronic kidney disease) stage 2, GFR 60-89 ml/min, Clotting disorder ([facility]), Congenital heart disease, COPD (chronic obstructive pulmonary disease) ([facility]), Depression, Emphysema of lung ([facility]), GERD (gastroesophageal reflux disease), GERD (gastroesophageal reflux [...] 03:20 PM PO2ART 92.5 08/22/2011 03:20 PM WKE6BIM 26.0 08/22/2011 03:20 PM NBEA NOT REPORTED 08/22/2011 03:20 PM PBEA 1.8 08/22/2011 03:20 PM Q4TDOAUX 95.6 08/22/2011 03:20 PM FIO2 INFORMATION NOT PROVIDED 11/30/2023 12:05 AM Lab Results Component Value Date/Time SPECIAL NOT REPORTED 10/20/2012 10:15 AM SPECIAL NOT REPORTED 10/20/2012 10:15 AM Lab Results Component Value Date/Time CULTURE NO GROWTH 10/20/2012 10:15 AM CULTURE 10/20/2012 10:15 AM Performed at [address] [address] Radiology: XR CHEST (2 VW) [...] weakness 12/02/2023 Yes CHF (congestive heart failure) ([facility]) 11/30/2023 Yes Uncontrolled hypertension 11/30/2023 Yes Dysphagia [...] Chronic kidney disease (CKD), stage III (moderate) ([facility]) Generalized weakness CHF (congestive heart failure) ([facility]) Uncontrolled hypertension Dysphagia GERD (gastroesophageal reflux disease) [...] 2 units and then adjust accordingly Recurrent EWZe-ULSd-togcyl neurology plan History of prothrombin gene mutation with prior DVT-continue Coumadin CKD stage III-continue to monitor creatinine and will need follow-up with nephrology/PCP PAM on CPAP Hx of dvt: on coumadin. Pharmacy managing Discharge planning after the above workup Lori Leblanc MD 12/08/2023 3:35 PM Physical Therapy Facility/Department: [address] [place] Physical Therapy Treatment Note Name: Andry Pierre : 1960 Date of Service: 12/08/2023 Discharge Recommendations: Patient would benefit from continued therapy after discharge PT Equipment Recommendations Equipment Needed: No Other: Pt owns walker, cane and walker Patient Diagnosis(es): There were no encounter diagnoses. Past Medical History: has a past medical history of Arthritis, Asthma, CHF (congestive heart failure) ([facility]), CKD (chronic kidney disease) stage 2, GFR 60-89 ml/min, Clotting disorder ([facility]), Congenital heart disease, COPD (chronic obstructive pulmonary disease) ([facility]), Depression, Emphysema of lung ([facility]), GERD (gastroesophageal reflux disease), GERD (gastroesophageal reflux disease), Gout, Headache(784.0), Hernia, Hernia, History of blood clots, History of DVT (deep vein thrombosis), Hyperlipidemia, Insomnia, Irritable bowel syndrome, Kidney stones, Lumbar degenerative disc disease, Lumbar radiculopathy, Obesity, PAM (obstructive sleep apnea), Parkinson disease, Parkinson's disease, Post traumatic stress disorder, Renal disease, Rheumatoid arthritis ([facility]), Stroke ([facility]), Stroke risk, Tracheostomy in place ([facility]), Tremors of nervous system, Type II or [...] previous session. Family / Caregiver Present: Yes (wfdennis) Follows Commands: Within Functional Limits General Comment [...] abduction/adduction, heel/toe raises, and marches Reps 20 [facility] - Mobility [facility] Basic Mobility - Inpatient How much help [...] 3-5 steps with a railing?: A Lot [facility] Inpatient Mobility Raw [facility] Inpatient T-Scale Score : 39.45 Mobility Inpatient CMS 0-100% Score: 57.7 Mobility Inpatient [facility] G-Code Modifier : CK Goals Short [...] other days (per medication management clinic in [place], last visit 11/11; clinic noted recent dose [...] today Daily PT/INR while inpatient. Nolan Mccarty, Lorraine, 12/08/2023 11:58 AM Pharmacy Note Warfarin Consult follow-up Warfarin dose prior to admission: 17.5 mg Sun, 15 mg all other days (per medication management clinic in [place], last visit 11/11; clinic noted recent dose [...] today Daily PT/INR while inpatient. Nolan Mccarty, JohanaD, 12/07/2023 9:32 AM Images from the original note were not included. [facility] Office: [phone] Alberto Rice DO, Luciano Murphy DO, Humza [...] Brittny Quinones, COLTON, Kacey Meeks CNP, Sugey Barillas, FACTORY PROCESS WORKERS, Mary Jo Bonner, FACTORY PROCESS WORKERS, Jodi Granados FACTORY PROCESS WORKERS, Sigrid Velásquez FACTORY PROCESS WORKERS, Janine Turpin PA-C, Sue Willams PA-C, Savi Iqbal, FACTORY PROCESS WORKERS, Beckie Mello, FACTORY PROCESS WORKERS, Nora Mace, FACTORY PROCESS WORKERS, Jyoti Rojo, PAVER INSTALLER, Ronda Sellers, FACTORY PROCESS WORKERS, Janell Hoyt, FACTORY PROCESS WORKERS, Caryl Gonzalez, FACTORY PROCESS WORKERS [facility] IN-PATIENT SERVICE [facility] Progress Note 12/07/2023 9:05 AM Name: Andry Pierre Acct: [id number] Room: [address] [place] [address]- IP Day: 8 Admit Date: 11/29/2023 8:06 [...] brain stimulator 10/2008 who [address] presented to [facility] 11/24 s/p fall in bathroom with acute left hip/upper thigh and back pain (hit head, no LOC) presents with No chief complaint on file. and is admitted to the hospital for the management of AMS (altered mental status). Patient transferred from [place] after undergoing tilt table evaluation for concern for orthostasis on 11/28/2022 with history of recurrent episodes of dizziness with history of stroke, complicated history. tilt table test complicated by worsening acute symptoms of dizziness with chest pain with altered sensorium. Although tilt test unremarkable for orthostasis, patient was evaluated in ED with acute symptoms and recommended admission [facility]. Unfortunately with bed [...] with occasional shortness of breath While in [place] ED patient did develop symptomatic hypoglycemia with blood sugars in the 50s with symptoms of feeling funny . 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 Subsequently returned status post fall 11/24 with [...] of Arthritis, Asthma, CHF (congestive heart failure) ([facility]), CKD (chronic kidney disease) stage 2, GFR 60-89 ml/min, Clotting disorder ([facility]), Congenital heart disease, COPD (chronic obstructive pulmonary disease) ([facility]), Depression, Emphysema of lung ([facility]), GERD (gastroesophageal reflux disease), GERD (gastroesophageal reflux [...] 03:20 PM PO2ART 92.5 08/22/2011 03:20 PM [id number] 26.0 08/22/2011 03:20 PM NBEA NOT REPORTED 08/22/2011 03:20 PM PBEA 1.8 08/22/2011 03:20 PM [id number] 95.6 08/22/2011 03:20 PM FIO2 INFORMATION NOT PROVIDED 11/30/2023 12:05 AM Lab Results Component Value Date/Time SPECIAL NOT REPORTED 10/20/2012 10:15 AM SPECIAL NOT REPORTED 10/20/2012 10:15 AM Lab Results Component Value Date/Time CULTURE NO GROWTH 10/20/2012 10:15 AM CULTURE 10/20/2012 10:15 AM Performed at [address] [id number] Radiology: XR CHEST (2 VW) Result Date: [...] 2 units and then adjust accordingly Recurrent EQOx-BHHt-xdruay neurology plan History of prothrombin gene mutation with prior DVT-continue Coumadin CKD stage III-continue to monitor creatinine and will need follow-up with nephrology/PCP PAM on CPAP Hx of dvt: on coumadin. Pharmacy managing Discharge planning after the above workup Lori Leblanc MD 12/07/2023 9:05 AM Images from the original note were not included. [facility] Office: [phone] Alberto Rice DO, Luciano Murphy DO, Humza [...] MD, Garett Valentine MD, Rosalia Mobley CNP, rCiss Gray CNP, Lefty Matute CNP, Brittny Quinones DNP, Kacey Meeks CNP, Sugey Barillas CNP, Mary Jo Bonner CNP, Jodi Granados CNP, Sigrid Velásquez CNP, Janine Turpin PA-C, KATHRIN MercedesC, Savi Iqbal CNP, Beckie Mello, FACTORY PROCESS WORKERS, Nora Mace, FACTORY PROCESS WORKERS, Jyoti Rojo, PAVER INSTALLER, Ronda Sellers, FACTORY PROCESS WORKERS, Janell Hoyt, FACTORY PROCESS WORKERS, Caryl Gonzalez, FACTORY PROCESS WORKERS [facility] IN-PATIENT SERVICE [facility] Progress Note 12/06/2023 1:56 PM Name: Andry Pierre Acct: [id number] Room: [address] [place] [address] Day: 7 Admit Date: 11/29/2023 8:06 PM [...] brain stimulator 10/2008 who initially presented to [facility] 11/24 s/p fall in bathroom with acute left hip/upper thigh and back pain (hit head, no LOC) presents with No chief complaint on file. and is admitted to the hospital for the management of AMS (altered mental status). Patient transferred from [place] after undergoing tilt table evaluation for concern for orthostasis on 11/28/2022 with history of recurrent episodes of dizziness with history of stroke, complicated history. tilt table test complicated by worsening acute symptoms of dizziness with chest pain with altered sensorium. Although tilt test unremarkable for orthostasis, patient was evaluated in ED with acute symptoms and recommended admission pending [facility]. Unfortunately with bed [...] with occasional shortness of breath While in [place] ED patient did develop symptomatic hypoglycemia with blood sugars in the 50s with symptoms of feeling funny . 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 Subsequently returned status post fall 11/24 with [...] stage 2, GFR 60-89 ml/min, Clotting disorder ([facility]), Congenital heart disease, COPD (chronic obstructive pulmonary disease) ([facility]), Depression, Emphysema of lung ([facility]), GERD (gastroesophageal reflux disease), GERD (gastroesophageal reflux disease), Gout, Headache(784.0), Hernia, Hernia, History of blood clots, History of DVT (deep vein thrombosis), Hyperlipidemia, Insomnia, Irritable bowel syndrome, Kidney stones, Lumbar degenerative disc disease, Lumbar radiculopathy, Obesity, PAM (obstructive sleep apnea), Parkinson disease, Parkinson's disease, Post traumatic stress disorder, Renal disease, Rheumatoid arthritis ([facility]), Stroke ([facility]), Stroke risk, Tracheostomy in place ([facility]), Tremors of nervous system, Type II or [...] 03:20 PM PO2ART 92.5 08/22/2011 03:20 PM [id number] 26.0 08/22/2011 03:20 PM NBEA NOT REPORTED 08/22/2011 03:20 PM PBEA 1.8 08/22/2011 03:20 PM [id number] 95.6 08/22/2011 03:20 PM FIO2 INFORMATION NOT PROVIDED 11/30/2023 12:05 AM Lab Results Component Value Date/Time SPECIAL NOT REPORTED 10/20/2012 10:15 AM SPECIAL NOT REPORTED 10/20/2012 10:15 AM Lab Results Component Value Date/Time CULTURE NO GROWTH 10/20/2012 10:15 AM CULTURE 10/20/2012 10:15 AM [facility] [address] [address] Radiology: XR CHEST (2 VW) [...] Chronic kidney disease (CKD), stage III (moderate) ([facility]) 11/30/2023 Yes Generalized weakness 12/02/2023 Yes CHF (congestive heart failure) ([facility]) 11/30/2023 Yes Uncontrolled hypertension 11/30/2023 Yes Dysphagia [...] Chronic kidney disease (CKD), stage III (moderate) ([facility]) Generalized weakness CHF (congestive heart failure) ([facility]) Uncontrolled hypertension Dysphagia GERD (gastroesophageal reflux disease) [...] 2 units and then adjust accordingly Recurrent NJCa-VTFq-hzxcip neurology plan History of prothrombin gene mutation with prior DVT-continue Coumadin CKD stage III-continue to monitor creatinine and will need follow-up with nephrology/PCP PAM on CPAP Discharge planning after the above workup Lori Leblanc MD 12/06/2023 1:56 PM Pharmacy Note Warfarin Consult follow-up Warfarin dose prior to admission: 17.5 mg Sun, 15 mg all other days (per medication management clinic in [place], last visit 11/11; clinic noted recent dose [...] other days (per medication management clinic in [place], last visit 11/11; clinic noted recent dose [...] Daily PT/INR while inpatient. Nolan Mccarty, Lorraine, 12/05/2023 2:41 PM CONTRACTING OFFICER ALL NOTES Speech Language Pathology [facility] Cognitive Treatment Note Date: 12/05/2023 Patient s Name: Andry Pierre Diagnosis: Patient Active Problem List Diagnosis Code COPD (chronic obstructive pulmonary disease) ([facility]) J44.9 PAM (obstructive sleep apnea) G47.33 Obesity, morbid ([facility]) E66.01 Lumbar degenerative disc disease M51.36 Lumbar radiculopathy M54.16 Lumbar facet arthropathy M47.816 Osteoarthritis of both knees M17.0 Diabetic neuropathy ([facility]) E11.40 Morbid obesity ([facility]) E66.01 Sleep apnea, obstructive G47.33 Encounter for medication monitoring Z51.81 Chronic kidney disease (CKD), stage III (moderate) ([facility]) N18.30 Hyperkalemia E87.5 Generalized weakness R53.1 Pill rolling tremor R25.1 Muscle cramps R25.2 Acute renal failure (ARF) ([facility]) N17.9 Type II or unspecified type diabetes mellitus without mention of complication, not stated as uncontrolled E11.9 Depression F32.A Irritable bowel syndrome K58.9 Obesity E66.9 CHF (congestive heart failure) ([facility]) I50.9 Parkinson disease G20.A1 Tremors of nervous system R25.[address] ([facility]) Z93.0 Bilateral lower extremity edema R60.0 CKD [...] chronic pain management G89.29 Weight loss, intentional [id number] 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 Completed by Tess Robert Wire Hanger Clinician Co-signed by Jodi Rivera M.A.CCC/CONTRACTING OFFICER Occupational Therapy Facility/Department: [address] [place] Occupational Therapy Daily Treatment Note Name: Andry Pierre : 1960 Date of Service: 12/05/2023 Discharge Recommendations: Patient would benefit from continued therapy after discharge OT Equipment Recommendations ADL Assistive Devices: Shower Chair with back Other: weighted utensils Patient Diagnosis(es): There were no encounter diagnoses. Past Medical History: has a past medical history of Arthritis, Asthma, CHF (congestive heart failure) ([facility]), CKD (chronic kidney disease) stage 2, GFR 60-89 ml/min, Clotting disorder ([facility]), Congenital heart disease, COPD (chronic obstructive pulmonary disease) ([facility]), Depression, Emphysema of lung ([facility]), GERD (gastroesophageal reflux disease), GERD (gastroesophageal reflux disease), Gout, Headache(784.0), Hernia, Hernia, History of blood clots, History of DVT (deep vein thrombosis), Hyperlipidemia, Insomnia, Irritable bowel syndrome, Kidney stones, Lumbar degenerative disc disease, Lumbar radiculopathy, Obesity, PAM (obstructive sleep apnea), Parkinson disease, Parkinson's disease, Post traumatic stress disorder, Renal disease, Rheumatoid arthritis ([facility]), Stroke ([facility]), Stroke risk, Tracheostomy in place ([facility]), Tremors of nervous system, Type II or [...] bears weight in BUEs on 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 [facility] Office: [phone] Alberto Rice DO, Luciano Murphy DO, Humza [...] Jo Bonner CNP, Jodi Granados CNP, Sigrid Velásquze, FACTORY PROCESS WORKERS, Janine Turpin, PARolfC, Sue Willams, PARolfC, Savi Iqbal, FACTORY PROCESS WORKERS, Beckie Mello, FACTORY PROCESS WORKERS, Nora Mace, FACTORY PROCESS WORKERS, Jyoti Rojo, PAVER INSTALLER, Ronda Sellers, FACTORY PROCESS WORKERS, Janell Hoyt, FACTORY PROCESS WORKERS, Caryl Gonzalez, FACTORY PROCESS WORKERS [facility] IN-PATIENT SERVICE [facility] Progress Note 12/05/2023 8:58 AM Name: Andry Pierre Acct: [id number] Room: 0143/0143-01 IP Day: 6 Admit Date: [...] brain stimulator 10/2008 who initially presented to [facility] 11/24 s/p fall in bathroom with acute left hip/upper thigh and back pain (hit head, no LOC) presents with No chief complaint on file. and is admitted to the hospital for the management of AMS (altered mental status). Patient transferred from [place] after undergoing tilt table evaluation for concern for orthostasis on 11/28/2022 with history of recurrent episodes of dizziness with history of stroke, complicated history. tilt table test complicated by worsening acute symptoms of dizziness with chest pain with altered sensorium. Although tilt test unremarkable for orthostasis, patient was evaluated in ED with acute symptoms and recommended admission [facility]. Unfortunately with bed [...] with occasional shortness of breath While in [place] ED patient did develop symptomatic hypoglycemia with blood sugars in the 50s with symptoms of feeling funny . 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 Subsequently returned status post fall 11/24 with [...] of Arthritis, Asthma, CHF (congestive heart failure) ([facility]), CKD (chronic kidney disease) stage 2, GFR 60-89 ml/min, Clotting disorder ([facility]), Congenital heart disease, COPD (chronic obstructive pulmonary disease) ([facility]), Depression, Emphysema of lung ([facility]), GERD (gastroesophageal reflux disease), GERD (gastroesophageal reflux disease), Gout, Headache(784.0), Hernia, Hernia, History of blood clots, History of DVT (deep vein thrombosis), Hyperlipidemia, Insomnia, Irritable bowel syndrome, Kidney stones, Lumbar degenerative disc disease, Lumbar radiculopathy, Obesity, PAM (obstructive sleep apnea), Parkinson disease, Parkinson's disease, Post traumatic stress disorder, Renal disease, Rheumatoid arthritis ([facility]), Stroke ([facility]), Stroke risk, Tracheostomy in place ([facility]), Tremors of nervous system, Type II or [...] 03:20 PM PO2ART 92.5 08/22/2011 03:20 PM [id number] 26.0 08/22/2011 03:20 PM NBEA NOT REPORTED 08/22/2011 03:20 PM PBEA 1.8 08/22/2011 03:20 PM [id number] 95.6 08/22/2011 03:20 PM FIO2 INFORMATION NOT PROVIDED 11/30/2023 12:05 AM Lab Results Component Value Date/Time SPECIAL NOT REPORTED 10/20/2012 10:15 AM SPECIAL NOT REPORTED 10/20/2012 10:15 AM Lab Results Component Value Date/Time CULTURE NO GROWTH 10/20/2012 10:15 AM CULTURE 10/20/2012 10:15 AM Performed at [email or web address] [address] [address] Radiology: XR CHEST (2 VW) Result Date: [...] Chronic kidney disease (CKD), stage III (moderate) ([facility]) 11/30/2023 Yes Generalized weakness 12/02/2023 Yes CHF (congestive heart failure) ([facility]) 11/30/2023 Yes Uncontrolled hypertension 11/30/2023 Yes Dysphagia [...] (HCC) Generalized weakness CHF (congestive heart failure) ([facility]) Uncontrolled hypertension Dysphagia GERD (gastroesophageal reflux disease) [...] 2 units and then adjust accordingly Recurrent DLLs-QGMx-ncjubj neurology plan History of prothrombin gene mutation with prior DVT-continue Coumadin CKD stage III-continue to monitor creatinine and will need follow-up with nephrology/PCP PAM on CPAP Discharge planning after the above workup Lori Leblanc MD 12/05/2023 8:58 AM Images from the original note were not included. [facility] Office: [phone] Alberto Rice DO, Luciano Murphy DO, Humza James DO, Jc Maria DO, Nancy Paz MD, Naz Cruz MD, Demetrio Patel MD, Hortensia Maynard MD, Filiberto Vizcaino MD, Polly Ramos MD, Julia Blanco MD, Bibi Kim DO, Yaneli Lugo MD, Chepe Pfeiffer MD, Adnry Rice DO, Jamia Nur MD, Obi Alford DO, Jacquelyn Roper MD, Almita Moya MD, Jackie Rivas MD, Kylie Morales MD, Pasha Roy MD, Daniel Swenson MD, Marvin Sneed MD, Abdirahman Hunt MD, Da Moore MD, Geneva Casiano MD, Matthew Perez DO, Tk Connor DO, Jess Parker MD, Garett Valentine MD, Rosalia Mobley, FACTORY PROCESS WORKERS, Criss Gray, FACTORY PROCESS WORKERS, Lefty Matute, FACTORY PROCESS WORKERS, Brittny Quinones, COLTON, Kacey Meeks, FACTORY PROCESS WORKERS, Sugey Barillas, FACTORY PROCESS WORKERS, Mary Jo Bonner, FACTORY PROCESS WORKERS, Jodi Granados, FACTORY PROCESS WORKERS, Sigrid Velásquez, FACTORY PROCESS WORKERS, Janine Turpin, PA-C, Sue Willams, PA-C, Savi Iqbal, FACTORY PROCESS WORKERS, Beckie Mello, FACTORY PROCESS WORKERS, Nora Mace, FACTORY PROCESS WORKERS, Jyoti Rojo, PAVER INSTALLER, Ronda Sellers, FACTORY PROCESS WORKERS, Janell Hoyt, SHERYL, Caryl Gonzalez, FACTORY PROCESS WORKERS [facility] IN-PATIENT SERVICE [facility] Progress Note 12/04/2023 2:59 PM Name: Andry Pierre Acct: [id number] Room: 0143/0143-01 Day: 5 Admit Date: 11/29/2023 [...] brain stimulator 10/2008 who initially presented to [facility] 11/24 s/p fall in bathroom with acute left hip/upper thigh and back pain (hit head, no LOC) presents with No chief complaint on file. and is admitted to the hospital for the management of AMS (altered mental status). Patient transferred from [place] after undergoing tilt table evaluation for concern for orthostasis on 11/28/2022 with history of recurrent episodes of dizziness with history of stroke, complicated history. tilt table test complicated by worsening acute symptoms of dizziness with chest pain with altered sensorium. Although tilt test unremarkable for orthostasis, patient was evaluated in ED with acute symptoms and recommended admission [facility]. Unfortunately with bed [...] with occasional shortness of breath While in [place] ED patient did develop symptomatic hypoglycemia with blood sugars in the 50s with symptoms of feeling funny . 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 Subsequently returned status post fall 11/24 with [...] of Arthritis, Asthma, CHF (congestive heart failure) ([facility]), CKD (chronic kidney disease) stage 2, GFR 60-89 ml/min, Clotting disorder ([facility]), Congenital heart disease, COPD (chronic obstructive pulmonary disease) ([facility]), Depression, Emphysema of lung ([facility]), GERD (gastroesophageal reflux disease), GERD (gastroesophageal reflux disease), Gout, Headache(784.0), Hernia, Hernia, History of blood clots, History of DVT (deep vein thrombosis), Hyperlipidemia, Insomnia, Irritable bowel syndrome, Kidney stones, Lumbar degenerative disc disease, Lumbar radiculopathy, Obesity, PAM (obstructive sleep apnea), Parkinson disease, Parkinson's disease, Post traumatic stress disorder, Renal disease, Rheumatoid arthritis ([facility]), Stroke ([facility]), Stroke risk, Tracheostomy in place ([facility]), Tremors of nervous system, Type II or [...] 03:20 PM PO2ART 92.5 08/22/2011 03:20 PM FUS6GBJ 26.0 08/22/2011 03:20 PM NBEA NOT REPORTED 08/22/2011 03:20 PM PBEA 1.8 08/22/2011 03:20 PM F9VSUSKC 95.6 08/22/2011 03:20 PM FIO2 INFORMATION NOT PROVIDED 11/30/2023 12:05 AM Lab Results Component Value Date/Time SPECIAL NOT REPORTED 10/20/2012 10:15 AM SPECIAL NOT REPORTED 10/20/2012 10:15 AM Lab Results Component Value Date/Time CULTURE NO GROWTH 10/20/2012 10:15 AM CULTURE 10/20/2012 10:15 AM Performed at [email or web address] [address] [id number] Radiology: XR CHEST (2 VW) Result Date: [...] Chronic kidney disease (CKD), stage III (moderate) ([facility]) 11/30/2023 Yes Generalized weakness 12/02/2023 Yes CHF (congestive heart failure) ([facility]) 11/30/2023 Yes Uncontrolled hypertension 11/30/2023 Yes Dysphagia [...] Chronic kidney disease (CKD), stage III (moderate) ([facility]) Generalized weakness CHF (congestive heart failure) ([facility]) Uncontrolled hypertension Dysphagia GERD (gastroesophageal reflux disease) [...] 2 units and then adjust accordingly Recurrent RASe-XHSg-plvibn neurology plan History of prothrombin gene mutation [...] Progress Note PATIENT: ANDRY PIERRE CSN #: [id number] : 1960 ADMIT DATE: 11/29/2023 8:06 PM [...] Thank You Torsten LEES BSN CCDS Email [email or web address] office hours M-F 6am to 2:30p Options [...] Diagnosis Code COPD (chronic obstructive pulmonary disease) ([facility]) J44.9 PAM (obstructive sleep apnea) G47.33 Obesity, morbid ([facility]) E66.01 Lumbar degenerative disc disease M51.36 Lumbar radiculopathy M54.16 Lumbar facet arthropathy M47.816 Osteoarthritis of both knees M17.0 Diabetic neuropathy ([facility]) E11.40 Morbid obesity ([facility]) E66.01 Sleep apnea, obstructive G47.33 Encounter for medication monitoring Z51.81 Chronic kidney disease (CKD), stage III (moderate) ([facility]) N18.30 Hyperkalemia E87.5 Generalized weakness R53.1 Pill rolling tremor R25.1 Muscle cramps R25.2 Acute renal failure (ARF) ([facility]) N17.9 Type II or unspecified type diabetes mellitus without mention of complication, not stated as uncontrolled E11.9 Depression F32.A Irritable bowel syndrome K58.9 Obesity E66.9 CHF (congestive heart failure) ([facility]) I50.9 Parkinson disease G20.A1 Tremors of nervous system R25.[address] ([facility]) Z93.0 Bilateral lower extremity edema R60.0 CKD (chronic kidney disease) N18.9 Uncontrolled hypertension I10 Dysphagia R13.10 Hyperlipidemia E78.5 History of DVT (deep vein thrombosis) Z86.718 Congenital heart disease Q24.9 Emphysema of lung ([facility]) J43.9 Hernia K46.9 Stroke risk Z91.89 GERD (gastroesophageal reflux disease) K21.9 Asthma J45.909 Renal disease N28.9 Gout M10.9 S/P deep brain stimulator placement Z96.89 Parkinsons G20.A1 CKD (chronic kidney disease) stage 2, GFR 60-89 ml/min N18.2 Type II or unspecified type diabetes mellitus with renal manifestations, not stated as uncontrolled(250.40) E11.29 Encounter for chronic pain management G89.29 Weight loss, intentional [id number] 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 Primary osteoarthritis of both knees M17.0 DM type 2 with diabetic peripheral neuropathy ([facility]) E11.42 Need for immunization against influenza Z23 Morbid obesity due to excess calories ([facility]) E66.01 Diabetic mononeuropathy associated with diabetes mellitus due to underlying condition ([facility]) E08.41 AMS (altered mental status) R41.82 Altered mental status R41.82 Multiple falls R29.6 Essential tremor G25.0 Syncope and collapse R55 Staring episodes R40.4 Altered awareness, transient R40.4 Acute encephalopathy G93.40 Neuropathy G62.9 Pain: Patient did not complain of any pain. Cognitive Treatment Treatment time: [id number] Subjective: [x] Alert [x] Cooperative [] Confused [...] at discharge. Treatment completed by: Jimmy Alva, Wire Hanger Clinician Pharmacy Note Warfarin Consult follow-up Warfarin dose prior to admission: 17.5 mg Sun, 15 mg all other days (per medication management clinic in [place], last visit 11/11; clinic noted recent dose [...] sent to the ED. Ultimately transferred to [facility]. Neurology was consulted for encephalopathy. Patient's [...] been seen by neuromuscular neurology at the [facility] on 11/06/2023 with noted essential tremor. [...] NEEDLE ANTHONY U/F 32G X 4 MM [facility] ACCU-CHEK COMPACT PLUS strip 0 Allergies: Andry Pierre is allergic to beta adrenergic blockers, hydralazine, neuromuscular blocking agents [neuromuscular blocking agents], neurontin [gabapentin], valium, and other. Past Medical History: Diagnosis Date Arthritis Asthma CHF (congestive heart failure) ([facility]) CKD (chronic kidney disease) stage 2, GFR 60-89 ml/min 02/16/2014 Clotting disorder ([facility]) Congenital heart disease COPD (chronic obstructive pulmonary disease) ([facility]) Depression Emphysema of lung ([facility]) GERD (gastroesophageal reflux disease) GERD (gastroesophageal reflux disease) Gout Headache(784.0) Hernia Hernia History of blood clots History of DVT (deep vein thrombosis) Hyperlipidemia Insomnia Irritable bowel syndrome Kidney stones Lumbar degenerative disc disease 01/25/2014 Lumbar radiculopathy 01/25/2014 Obesity PAM (obstructive sleep apnea) 11/16/2013 Parkinson disease Parkinson's disease Post traumatic stress disorder Renal disease Rheumatoid arthritis ([facility]) Stroke ([facility]) 2018 Stroke risk Tracheostomy in place ([facility]) 08/22/2011 Tremors of nervous system Type II [...] INR 3.0 12/04/2023 LABA1C 8.8 (H) 11/25/2023 [id number] 11/30/2023 MG 2.7 (H) 11/30/2023 PHOS [...] is already scheduled through his PCP in [place]. Please note that this note was generated using a voice recognition dictation software. Although every effort was made to ensure the accuracy of this automated tmd teacher assistant, some errors in tmd teacher assistant may have occurred. Pharmacy Note Warfarin Consult follow-up Warfarin dose prior to admission: 17.5 mg Sun, 15 mg all other days (per medication management clinic in [place], last visit 11/11; clinic noted recent dose [...] to dose changes Daily PT/INR while inpatient. Nolna Mccarty PharmD, 12/03/2023 4:34 PM Physical Therapy Facility/Department: [address] [place] Physical Therapy Daily Treatment Note Name: Andry Pierre : 1960 Date of Service: 12/03/2023 Discharge Recommendations: Patient would benefit from continued therapy after discharge PT Equipment Recommendations Equipment Needed: No Patient Diagnosis(es): There were no encounter diagnoses. Past Medical History: has a past medical history of Arthritis, Asthma, CHF (congestive heart failure) ([facility]), CKD (chronic kidney disease) stage 2, GFR 60-89 ml/min, Clotting disorder (HCC), Congenital heart disease, COPD (chronic obstructive pulmonary disease) ([facility]), Depression, Emphysema of lung (HCC), GERD (gastroesophageal reflux disease), GERD (gastroesophageal reflux disease), Gout, Headache(784.0), Hernia, Hernia, History of blood clots, History of DVT (deep vein thrombosis), Hyperlipidemia, Insomnia, Irritable bowel syndrome, Kidney stones, Lumbar degenerative disc disease, Lumbar radiculopathy, Obesity, PMA (obstructive sleep apnea), Parkinson disease, Parkinson's disease, Post traumatic stress disorder, Renal disease, Rheumatoid arthritis ([facility]), Stroke ([facility]), Stroke risk, Tracheostomy in place ([facility]), Tremors of nervous system, Type II or [...] Comments: pt sitting in bedside chair upon continuity writer entering room. 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 Reps: 10 OutComes Score [facility] - Mobility [facility] Basic Mobility - Inpatient How much [...] 3-5 steps with a railing?: A Lot [facility] Inpatient Mobility Raw Score : 17 [facility] Inpatient T-Scale Score : 42.13 Mobility [...] task. Letty Lemon PTA Occupational Therapy Facility/Department: [address] [place] Occupational Therapy Daily Treatment Note Name: Andry Pierre : 1960 Date of Service: 12/03/2023 Discharge Recommendations: Patient would benefit from continued therapy after discharge OT Equipment Recommendations ADL Assistive Devices: Shower Chair with back Other: weighted utensils Patient Diagnosis(es): There were no encounter diagnoses. Past Medical History: has a past medical history of Arthritis, Asthma, CHF (congestive heart failure) ([facility]), CKD (chronic kidney disease) stage 2, GFR 60-89 ml/min, Clotting disorder ([facility]), Congenital heart disease, COPD (chronic obstructive pulmonary disease) ([facility]), Depression, Emphysema of lung ([facility]), GERD (gastroesophageal reflux disease), GERD (gastroesophageal reflux [...] of arm rests. Cognition Overall Cognitive Status: [facility] Cognition Comment: pt having conversation with [...] Code Treatment Minutes: 15 Minutes (co-tx w/ FITTING ROOM ASSOCIATE for safety) CAROLE Arriola Physician Progress Note PATIENT: ANDRY PIERRE CSN #: [id number] : 1960 ADMIT DATE: 11/29/2023 8:06 PM [...] Thank You Torsten LEES BSN CCDS Email [email or web address] office hours M-F 6am to 2:30p Options [...] from the original note were not included. [facility] Office: [phone] Alberto Rice DO, Luciano Murphy DO, Humza [...] Parker MD, Garett Valentine MD, Rosalia Mobley, FACTORY PROCESS WORKERS, Criss Gray, FACTORY PROCESS WORKERS, Lefty Matute, FACTORY PROCESS WORKERS, Brittny Quinones, DNP, Kacey Meeks, FACTORY PROCESS WORKERS, Sugey Barillas, FACTORY PROCESS WORKERS, Mary Jo Bonner, FACTORY PROCESS WORKERS, Jodi Granados, FACTORY PROCESS WORKERS, Sigrid Velásquez, FACTORY PROCESS WORKERS, Janine Turpin, PA-C, Sue Willams, PA-C, Savi Iqbal, FACTORY PROCESS WORKERS, Beckie Mello, FACTORY PROCESS WORKERS, Nora Mace, FACTORY PROCESS WORKERS, Jyoti Rojo, PAVER INSTALLER, Ronda Sellers, FACTORY PROCESS WORKERS, Janell Hoyt, FACTORY PROCESS WORKERS, Caryl Gonzalez, FACTORY PROCESS WORKERS [facility] IN-PATIENT SERVICE [facility] Progress Note 12/03/2023 12:01 PM Name: Andry Pierre Acct: [id number] Room: 0143/0143-01 Day: 4 Admit Date: 11/29/2023 [...] brain stimulator 10/2008 who [address] to [facility] 11/24 s/p fall in bathroom with acute left hip/upper thigh and back pain (hit head, no LOC) presents with No chief complaint on file. and is admitted to the hospital for the management of AMS (altered mental status). Patient transferred from [place] after undergoing tilt table evaluation for concern for orthostasis on 11/28/2022 with history of recurrent episodes of dizziness with history of stroke, complicated history. tilt table test complicated by worsening acute symptoms of dizziness with chest pain with altered sensorium. Although tilt test unremarkable for orthostasis, patient was evaluated in ED with acute symptoms and recommended admission [facility]. Unfortunately with bed [...] with occasional shortness of breath While in [place] ED patient did develop symptomatic hypoglycemia with blood sugars in the 50s with symptoms of feeling funny . 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 Subsequently returned status post fall 11/24 with [...] of Arthritis, Asthma, CHF (congestive heart failure) ([facility]), CKD (chronic kidney disease) stage 2, GFR 60-89 ml/min, Clotting disorder ([facility]), Congenital heart disease, COPD (chronic obstructive pulmonary disease) ([facility]), Depression, Emphysema of lung ([facility]), GERD (gastroesophageal reflux disease), GERD (gastroesophageal reflux [...] 12/01/23200312/02/23 0754 12/02/23 1204 12/02/23 1606 12/02/23 19512/03/23 0759 POCGLU 168* 117* 172* 169* 179* 83 ABG: Lab Results Component Value Date/Time PH 7.413 08/22/2011 03:20 PM PCO2 41.5 08/22/2011 03:20 PM PO2ART 92.5 08/22/2011 03:20 PM [id number] 26.0 08/22/2011 03:20 PM NBEA NOT REPORTED 08/22/2011 03:20 PM PBEA 1.8 08/22/2011 03:20 PM [id number] 95.6 08/22/2011 03:20 PM FIO2 INFORMATION NOT PROVIDED 11/30/2023 12:05 AM Lab Results Component Value Date/Time SPECIAL NOT REPORTED 10/20/2012 10:15 AM SPECIAL NOT REPORTED 10/20/2012 10:15 AM Lab Results Component Value Date/Time CULTURE NO GROWTH 10/20/2012 10:15 AM CULTURE 10/20/2012 10:15 AM Performed at [email or web address] [address] [address] Radiology: XR CHEST (2 VW) Result Date: [...] Chronic kidney disease (CKD), stage III (moderate) ([facility]) 11/30/2023 Yes Generalized weakness 12/02/2023 Yes CHF (congestive heart failure) ([facility]) 11/30/2023 Yes Uncontrolled hypertension 11/30/2023 Yes Dysphagia [...] (HCC) Generalized weakness CHF (congestive heart failure) ([facility]) Uncontrolled hypertension Dysphagia GERD (gastroesophageal reflux disease) [...] 2 units and then adjust accordingly Recurrent NTIr-SFIg-cndgaw neurology plan History of prothrombin gene mutation with prior DVT-continue Coumadin CKD stage III-continue to monitor creatinine and will need follow-up with nephrology/PCP PAM on CPAP Discharge planning after the above workup Lori Leblanc MD 12/03/2023 12:01 PM Physician Progress Note PATIENT: ANDRY PIERRE CSN #: [id number] : 1960 ADMIT DATE: 11/29/2023 8:06 PM [...] consult blood glucose monitoring, Thank You Torsten ARIZMENDIN CCDS Email [email or web address] office hours M-F 6am to 2:30p Options [...] sent to the ED. Ultimately transferred to [facility]. Neurology was consulted for encephalopathy. Patient's [...] been seen by neuromuscular neurology at the [facility] on 11/06/2023 with noted essential tremor. [...] NEEDLE ANTHONY U/F 32G X 4 MM [facility] ACCU-CHEK COMPACT PLUS strip 0 Allergies: Andry Magallanes Lesly is allergic to beta adrenergic blockers, hydralazine, neuromuscular blocking agents [neuromuscular blocking agents], neurontin [gabapentin], valium, and other. Past Medical History: Diagnosis Date Arthritis Asthma CHF (congestive heart failure) ([facility]) CKD (chronic kidney disease) stage 2, GFR 60-89 ml/min 02/16/2014 Clotting disorder ([facility]) Congenital heart disease COPD (chronic obstructive pulmonary disease) ([facility]) Depression Emphysema of lung ([facility]) GERD (gastroesophageal reflux disease) GERD (gastroesophageal reflux disease) Gout Headache(784.0) Hernia Hernia History of blood clots History of DVT (deep vein thrombosis) Hyperlipidemia Insomnia Irritable bowel syndrome Kidney stones Lumbar degenerative disc disease 01/25/2014 Lumbar radiculopathy 01/25/2014 Obesity PAM (obstructive sleep apnea) 11/16/2013 Parkinson disease Parkinson's disease Post traumatic stress disorder Renal disease Rheumatoid arthritis (HCC) Stroke ([facility]) 2018 Stroke risk Tracheostomy in place ([facility]) 08/22/2011 Tremors of nervous system Type II [...] INR 3.3 12/03/2023 LABA1C 8.8 (H) 11/25/2023 [id number] 397 11/30/2023 MG 2.7 (H) 11/30/2023 PHOS [...] is already scheduled through his PCP in [place]. Please note that this note was generated using a voice recognition dictation software. Although every effort was made to ensure the accuracy of this automated tmd teacher assistant, some errors in tmd teacher assistant may have occurred. Associated attestation - Krystian Colvin MD - 12/03/2023 9:03 PM EST Attending Physician Statement I have discussed the case of Andry Pierre including pertinent history and exam findings with the resident/ FACTORY PROCESS WORKERS. I reviewed medications, clinical labs, x-rays and other diagnostic tests with the resident/ FACTORY PROCESS WORKERS. I have seen and examined the patient [...] not tolerate those. He has been having [id number] in lower legs and feet and also [...] from the original note were not included. [facility] Office: [phone] Alberto Rice DO, Luciano Murphy DO, Humza [...] Garett Valentine MD, Rosalia Mobley CNP, Criss Gray, FACTORY PROCESS WORKERS, Lefty Matute, FACTORY PROCESS WORKERS, Brittny Quinones, DNP, Kacey Meeks, FACTORY PROCESS WORKERS, Sugey Barillas, FACTORY PROCESS WORKERS, Mary Jo Bonner, FACTORY PROCESS WORKERS, Jodi Granados, FACTORY PROCESS WORKERS, Sigrid Velásquez, FACTORY PROCESS WORKERS, Janine Turpin, PA-C, Sue Willams, PA-C, Savi Iqbal, FACTORY PROCESS WORKERS, Beckie Mello, FACTORY PROCESS WORKERS, Nora Mace, FACTORY PROCESS WORKERS, Jyoti Rojo, PAVER INSTALLER, Ronda Sellers, FACTORY PROCESS WORKERS, Janell Hoyt, FACTORY PROCESS WORKERS, Caryl Gonzalez, FACTORY PROCESS WORKERS [facility] IN-PATIENT SERVICE [facility] Progress Note 12/02/2023 3:11 PM Name: Andry Pierre Acct: [id number] Room: 0143/0143-01 Day: 3 Admit Date: 11/29/2023 [...] back to home dose Pending Placement to [facility] Brief History: Per documentation Andry Pierre is a 63 y.o. male with history of prior CVAs (with h/o expressive aphasia, dysphasia), h/o seizures, DM 2, HFpEF, CKD 3, chronic thrombophila w/ +prothrombin gene mutation s/p DVT/PE 01/2023, nonobst CAD (s/p cath 2019), asthma/COPD with PAM with history of Parkinsons vs MG s/p deep brain stimulator 10/2008 who initially presented to [facility] 11/24 s/p fall in bathroom with acute left hip/upper thigh and back pain (hit head, no LOC) presents with No chief complaint on file. and is admitted to the hospital for the management of AMS (altered mental status). Patient transferred from [place] after undergoing tilt table evaluation for concern for orthostasis on 11/28/2022 with history of recurrent episodes of dizziness with history of stroke, complicated history. tilt table test complicated by worsening acute symptoms of dizziness with chest pain with altered sensorium. Although tilt test unremarkable for orthostasis, patient was evaluated in ED with acute symptoms and recommended admission [facility]. Unfortunately with bed [...] with occasional shortness of breath While in [place] ED patient did develop symptomatic hypoglycemia with blood sugars in the 50s with symptoms of feeling funny . 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 Subsequently returned status post fall 11/24 with [...] of Arthritis, Asthma, CHF (congestive heart failure) ([facility]), CKD (chronic kidney disease) stage 2, GFR 60-89 ml/min, Clotting disorder ([facility]), Congenital heart disease, COPD (chronic obstructive pulmonary disease) ([facility]), Depression, Emphysema of lung ([facility]), GERD (gastroesophageal reflux disease), GERD (gastroesophageal reflux disease), Gout, Headache(784.0), Hernia, Hernia, History of blood clots, History of DVT (deep vein thrombosis), Hyperlipidemia, Insomnia, Irritable bowel syndrome, Kidney stones, Lumbar degenerative disc disease, Lumbar radiculopathy, Obesity, PAM (obstructive sleep apnea), Parkinson disease, Parkinson's disease, Post traumatic stress disorder, Renal disease, Rheumatoid arthritis ([facility]), Stroke ([facility]), Stroke risk, Tracheostomy in place ([facility]), Tremors of nervous system, Type II or [...] ml Labs: Hematology: Recent Labs 11/30/23 0612/01/23 0612/02/23 0523 WBC 10.1 10.9 11.1 RBC 4.94 4.68 4.61 HGB 15.4 14.6 14.4 HCT 49.3 46.3 46.4 MCV 99.8 98.9 100.7 MCH 31.2 31.2 31.2 MCHC 31.2 31.5 31.0 RDW 14.2 14.4 14.2 PLT 214 223 230 MPV 10.0 10.4 10.3 SEDRATE 18 -- -- CRP 4.8 -- -- INR 3.0 2.8 2.8 Chemistry: Recent Labs 11/30/2364712/01/2360512/01/23 1554 12/02/23 0523 NA 146* 140 -- [...] 0930 12/01/23 0812 12/01/23 1232 12/01/23 1740 12/01/23200312/02/2375312/02/23 1204 PROT 6.5 -- -- -- -- [...] 03:20 PM PO2ART 92.5 08/22/2011 03:20 PM [id number] 26.0 08/22/2011 03:20 PM NBEA NOT REPORTED 08/22/2011 03:20 PM PBEA 1.8 08/22/2011 03:20 PM [id number] 95.6 08/22/2011 03:20 PM FIO2 INFORMATION NOT PROVIDED 11/30/2023 12:05 AM Lab Results Component Value Date/Time SPECIAL NOT REPORTED 10/20/2012 10:15 AM SPECIAL NOT REPORTED 10/20/2012 10:15 AM Lab Results Component Value Date/Time CULTURE NO GROWTH 10/20/2012 10:15 AM CULTURE 10/20/2012 10:15 AM Performed at [address] [place] [address] Radiology: XR CHEST (2 VW) Result Date: [...] (HCC) 11/30/2023 Yes CHF (congestive heart failure) ([facility]) 11/30/2023 Yes Uncontrolled hypertension 11/30/2023 Yes Dysphagia [...] III (moderate) (HCC) CHF (congestive heart failure) ([facility]) Uncontrolled hypertension Dysphagia GERD (gastroesophageal reflux disease) [...] 2 units and then adjust accordingly Recurrent OCOl-DKCt-iiysuh neurology plan History of prothrombin gene mutation with prior DVT-continue Coumadin CKD stage III-continue to monitor creatinine and will need follow-up with nephrology/PCP PAM on CPAP Discharge planning after the above workup Lori Leblanc MD 12/02/2023 3:11 PM CONTRACTING OFFICER ALL NOTES Speech Language Pathology [facility] Cognitive Treatment Note Date: 12/02/2023 Patient s Name: Andry Pierre Diagnosis: Patient Active Problem List Diagnosis Code COPD (chronic obstructive pulmonary disease) ([facility]) J44.9 PAM (obstructive sleep apnea) G47.33 Obesity, morbid ([facility]) E66.01 Lumbar degenerative disc disease M51.36 Lumbar radiculopathy M54.16 Lumbar facet arthropathy M47.816 Osteoarthritis of both knees M17.0 Diabetic neuropathy ([facility]) E11.40 Morbid obesity ([facility]) E66.01 Sleep apnea, obstructive G47.33 Encounter for medication monitoring Z51.81 Chronic kidney disease (CKD), stage III (moderate) ([facility]) N18.30 Hyperkalemia E87.5 Fatigue R53.83 Pill rolling tremor R25.1 Muscle cramps R25.2 Acute renal failure (ARF) ([facility]) N17.9 Type II or unspecified type diabetes mellitus without mention of complication, not stated as uncontrolled E11.9 Depression F32.A Irritable bowel syndrome K58.9 Obesity E66.9 CHF (congestive heart failure) ([facility]) I50.9 Parkinson disease G20.A1 Tremors of nervous system R25.[address] ([facility]) Z93.0 Bilateral lower extremity edema R60.0 CKD (chronic kidney disease) N18.9 Uncontrolled hypertension I10 Dysphagia R13.10 Hyperlipidemia E78.5 History of DVT (deep vein thrombosis) Z86.718 Congenital heart disease Q24.9 Emphysema of lung ([facility]) J43.9 Hernia K46.9 Stroke risk Z91.89 GERD (gastroesophageal reflux disease) K21.9 Asthma J45.909 Renal disease N28.9 Gout M10.9 S/P deep brain stimulator placement Z96.89 Parkinsons G20.A1 CKD (chronic kidney disease) stage 2, GFR 60-89 ml/min N18.2 Type II or unspecified type diabetes mellitus with renal manifestations, not stated as uncontrolled(250.40) E11.29 Encounter for chronic pain management G89.29 Weight loss, intentional [id number] 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 Functional memory tasks (3-4 elements inclusion): 8 increased to 8/8 given mod to max [...] recommended at discharge. Completed by Tess Robert Wire Hanger Clinician Co-signed by Sonja Madera M.S. CCC/CONTRACTING OFFICER Pharmacy Note Warfarin Consult follow-up Warfarin dose prior to admission: 17.5 mg Sun, 15 mg all other days (per medication management clinic in [place], last visit 11/11; clinic noted recent dose [...] NEEDLE ANTHONY U/F 32G X 4 MM [facility] ACCU-CHEK COMPACT PLUS strip 0 Allergies: Andry Pierre is allergic to beta adrenergic blockers, hydralazine, neuromuscular blocking agents [neuromuscular blocking agents], neurontin [gabapentin], valium, and other. Past Medical History: Diagnosis Date Arthritis Asthma CHF (congestive heart failure) ([facility]) CKD (chronic kidney disease) stage 2, GFR 60-89 ml/min 02/16/2014 Clotting disorder ([facility]) Congenital heart disease COPD (chronic obstructive pulmonary disease) ([facility]) Depression Emphysema of lung ([facility]) GERD (gastroesophageal reflux disease) GERD (gastroesophageal reflux disease) Gout Headache(784.0) Hernia Hernia History of blood clots History of DVT (deep vein thrombosis) Hyperlipidemia Insomnia Irritable bowel syndrome Kidney stones Lumbar degenerative disc disease 01/25/2014 Lumbar radiculopathy 01/25/2014 Obesity PAM (obstructive sleep apnea) 11/16/2013 Parkinson disease Parkinson's disease Post traumatic stress disorder Renal disease Rheumatoid arthritis ([facility]) Stroke ([facility]) 2018 Stroke risk Tracheostomy in place ([facility]) 08/22/2011 Tremors of nervous system Type II [...] INR 2.8 12/02/2023 LABA1C 8.8 (H) 11/25/2023 [id number] 397 11/30/2023 MG 2.7 (H) 11/30/2023 PHOS [...] meaning may be extrapolated by contextual derivation. CONTRACTING OFFICER ALL NOTES Speech Language Pathology [facility] Cognitive Treatment Note Date: 12/01/2023 Patient s Name: Andry Pierre Diagnosis: Patient Active Problem List Diagnosis Code COPD (chronic obstructive pulmonary disease) ([facility]) J44.9 PAM (obstructive sleep apnea) G47.33 Obesity, morbid ([facility]) E66.01 Lumbar degenerative disc disease M51.36 Lumbar radiculopathy M54.16 Lumbar facet arthropathy M47.816 Osteoarthritis of both knees M17.0 Diabetic neuropathy ([facility]) E11.40 Morbid obesity ([facility]) E66.01 Sleep apnea, obstructive G47.33 Encounter for medication monitoring Z51.81 Chronic kidney disease (CKD), stage III (moderate) ([facility]) N18.30 Hyperkalemia E87.5 Fatigue R53.83 Pill rolling tremor R25.1 Muscle cramps R25.2 Acute renal failure (ARF) ([facility]) N17.9 Type II or unspecified type diabetes mellitus without mention of complication, not stated as uncontrolled E11.9 Depression F32.A Irritable bowel syndrome K58.9 Obesity E66.9 CHF (congestive heart failure) ([facility]) I50.9 Parkinson disease G20.A1 Tremors of nervous system R25.[address] ([facility]) Z93.0 Bilateral lower extremity edema R60.0 CKD (chronic kidney disease) N18.9 Uncontrolled hypertension I10 Dysphagia R13.10 Hyperlipidemia E78.5 History of DVT (deep vein thrombosis) Z86.718 Congenital heart disease Q24.9 Emphysema of lung ([facility]) J43.9 Hernia K46.9 Stroke risk Z91.89 GERD (gastroesophageal reflux disease) K21.9 Asthma J45.909 Renal disease N28.9 Gout M10.9 S/P deep brain stimulator placement Z96.89 Parkinsons G20.A1 CKD (chronic kidney disease) stage 2, GFR 60-89 ml/min N18.2 Type II or unspecified type diabetes mellitus with renal manifestations, not stated as uncontrolled(250.40) E11.29 Encounter for chronic pain management G89.29 Weight loss, intentional [id number] 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 Completed by Tess Robert Wire Hanger Clinician Co-signed by Sonja Madera M.S., CCC/CONTRACTING OFFICER Pharmacy Note Warfarin Consult follow-up Warfarin dose prior to admission: 17.5 mg Sun, 15 mg all other days (per medication management clinic in [place], last visit 11/11; clinic noted recent dose [...] PharmD, 12/01/2023 1:02 PM Physical Therapy Facility/Department: [address] [facility] Physical Therapy Initial Assessment Name: [...] brain stimulator 10/2008 who [address] to [facility] 11/24 s/p fall in bathroom with [...] of Arthritis, Asthma, CHF (congestive heart failure) ([facility]), CKD (chronic kidney disease) stage 2, GFR 60-89 ml/min, Clotting disorder ([facility]), Congenital heart disease, COPD (chronic obstructive pulmonary disease) ([facility]), Depression, Emphysema of lung ([facility]), GERD (gastroesophageal reflux disease), GERD (gastroesophageal reflux [...] and general all over pain reated between 7-10/10, Pt able to continue with assessment, nurse [...] Needs assistance Transfer Assistance: Needs assistance Active Professor Of Religion: No Patient's Professor Of Religion Info: riends from [employer]. does not drive Mode of Transportation: [...] shift, poor abilty to stand and initiate december with LE shaking and buckeling with abrupt [...] of <10 inches is fall risk): Yes [facility] Basic Mobility - Inpatient How much help [...] 3-5 steps with a railing?: A Lot [facility] Inpatient Mobility Raw Score : 17 [facility] Inpatient T-Scale Score : 42.13 Mobility Inpatient CMS 0-100% Score: 50.57 Mobility Inpatient [facility] G-Code Modifier : CK Goals Short [...] from the original note were not included. [facility] Office: [phone] Alberto Rice DO, Luciano Murphy DO, Humza [...] Meeks CNP, Sugey Barillas CNP, Mary Jo Bonner, FACTORY PROCESS WORKERS, oJdi Granados, FACTORY PROCESS WORKERS, Sigrid Velásquez, FACTORY PROCESS WORKERS, Janine Turpin, PARolfC, Sue Willams, PA-C, Savi Iqbal, FACTORY PROCESS WORKERS, Beckie Mello, FACTORY PROCESS WORKERS, Nora Mace, FACTORY PROCESS WORKERS, Jyoti Rojo, PAVER INSTALLER, Ronda Sellers, FACTORY PROCESS WORKERS, Janell Hoyt, FACTORY PROCESS WORKERS, Caryl Gonzalez, FACTORY PROCESS WORKERS [facility] IN-PATIENT SERVICE [facility] Progress Note 12/01/2023 1:10 PM Name: Andry Pierre Acct: [id number] Room: [address] [place] [address] Day: 2 Admit Date: 11/29/2023 8:06 PM [...] brain stimulator 10/2008 who initially presented to [facility] 11/24 s/p fall in bathroom with acute left hip/upper thigh and back pain (hit head, no LOC) presents with No chief complaint on file. and is admitted to the hospital for the management of AMS (altered mental status). Patient transferred from [place] after undergoing tilt table evaluation for concern for orthostasis on 11/28/2022 with history of recurrent episodes of dizziness with history of stroke, complicated history. tilt table test complicated by worsening acute symptoms of dizziness with chest pain with altered sensorium. Although tilt test unremarkable for orthostasis, patient was evaluated in ED with acute symptoms and recommended admission [facility]. Unfortunately with bed [...] with occasional shortness of breath While in [place] ED patient did develop symptomatic hypoglycemia with blood sugars in the 50s with symptoms of feeling funny . 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 Subsequently returned status post fall 11/24 with [...] of Arthritis, Asthma, CHF (congestive heart failure) ([facility]), CKD (chronic kidney disease) stage 2, GFR 60-89 ml/min, Clotting disorder ([facility]), Congenital heart disease, COPD (chronic obstructive pulmonary disease) ([facility]), Depression, Emphysema of lung ([facility]), GERD (gastroesophageal reflux disease), GERD (gastroesophageal reflux disease), Gout, Headache(784.0), Hernia, Hernia, History of blood clots, History of DVT (deep vein thrombosis), Hyperlipidemia, Insomnia, Irritable bowel syndrome, Kidney stones, Lumbar degenerative disc disease, Lumbar radiculopathy, Obesity, PAM (obstructive sleep apnea), Parkinson disease, Parkinson's disease, Post traumatic stress disorder, Renal disease, Rheumatoid arthritis ([facility]), Stroke ([facility]), Stroke risk, Tracheostomy in place ([facility]), Tremors of nervous system, Type II or [...] -- 59 -- Recent Labs 11/28/23 1425 11/28/23201411/29/23201711/29/234 11/30/24 0648 11/30/23 0807 11/30/23 0830 11/30/23 0930 [...] 03:20 PM PO2ART 92.5 08/22/2011 03:20 PM [id number] 26.0 08/22/2011 03:20 PM NBEA NOT REPORTED 08/22/2011 03:20 PM PBEA 1.8 08/22/2011 03:20 PM [id number] 95.6 08/22/2011 03:20 PM FIO2 INFORMATION NOT PROVIDED 11/30/2023 12:05 AM Lab Results Component Value Date/Time SPECIAL NOT REPORTED 10/20/2012 10:15 AM SPECIAL NOT REPORTED 10/20/2012 10:15 AM Lab Results Component Value Date/Time CULTURE NO GROWTH 10/20/2012 10:15 AM CULTURE 10/20/2012 10:15 AM Performed at [facility] [address] [place] [id number] Radiology: XR CHEST (2 VW) Result Date: [...] Chronic kidney disease (CKD), stage III (moderate) ([facility]) 11/30/2023 Yes CHF (congestive heart failure) ([facility]) [...] Chronic kidney disease (CKD), stage III (moderate) ([facility]) CHF (congestive heart failure) ([facility]) Uncontrolled hypertension [...] 2 units and then adjust accordingly Recurrent KTBb-UCPk-mzeksr neurology plan History of prothrombin gene mutation [...] NEEDLE ANTHONY U/F 32G X 4 MM [facility] ACCU-CHEK COMPACT PLUS strip 0 Allergies: Andry Pierre is allergic to beta adrenergic blockers, hydralazine, neuromuscular blocking agents [neuromuscular blocking agents], neurontin [gabapentin], valium, and other. Past Medical History: Diagnosis Date Arthritis Asthma CHF (congestive heart failure) ([facility]) CKD (chronic kidney disease) stage 2, GFR 60-89 ml/min 02/16/2014 Clotting disorder ([facility]) Congenital heart disease COPD (chronic obstructive pulmonary disease) ([facility]) Depression Emphysema of lung ([facility]) GERD (gastroesophageal reflux disease) GERD (gastroesophageal reflux disease) Gout Headache(784.0) Hernia Hernia History of blood clots History of DVT (deep vein thrombosis) Hyperlipidemia Insomnia Irritable bowel syndrome Kidney stones Lumbar degenerative disc disease 01/25/2014 Lumbar radiculopathy 01/25/2014 Obesity PAM (obstructive sleep apnea) 11/16/2013 Parkinson disease Parkinson's disease Post traumatic stress disorder Renal disease Rheumatoid arthritis ([facility]) Stroke ([facility]) 2018 Stroke risk Tracheostomy in place ([facility]) 08/22/2011 Tremors of nervous system Type II [...] INR 2.8 12/01/2023 LABA1C 8.8 (H) 11/25/2023 [id number] 397 11/30/2023 MG 2.7 (H) 11/30/2023 PHOS [...] that he had an EMG done at [facility] on 11/06/23, but I am unable [...] with questions or concerns. Occupational Therapy Facility/Department: [address] [facility] Occupational Therapy Initial Assessment Name: Andry [...] of Arthritis, Asthma, CHF (congestive heart failure) ([facility]), CKD (chronic kidney disease) stage 2, GFR 60-89 ml/min, Clotting disorder ([facility]), Congenital heart disease, COPD (chronic obstructive pulmonary disease) ([facility]), Depression, Emphysema of lung ([facility]), GERD (gastroesophageal reflux disease), GERD (gastroesophageal reflux disease), Gout, Headache(784.0), Hernia, Hernia, History of blood clots, History of DVT (deep vein thrombosis), Hyperlipidemia, Insomnia, Irritable bowel syndrome, Kidney stones, Lumbar degenerative disc disease, Lumbar radiculopathy, Obesity, PAM (obstructive sleep apnea), Parkinson disease, Parkinson's disease, Post traumatic stress disorder, Renal disease, Rheumatoid arthritis ([facility]), Stroke ([facility]), Stroke risk, Tracheostomy in place ([facility]), Tremors of nervous system, Type II or [...] the house) Transfer Assistance: Needs assistance Active Professor Of Religion: No (friends from [employer]. does not drive) Occupation: On disability [...] Within functional limits Cognition Overall Cognitive Status: [facility] Cognition Comment: pt having fluent conversation [...] Inpatient CMS 0-100% Score: 38.32 ADL Inpatient [facility] G-Code Modifier : CJ Goals Short [...] Treatment Minutes: 48 Minutes Dina Glez S/OT CONTRACTING OFFICER ALL NOTES Facility/Department: [address] [facility] CLINICAL BEDSIDE SWALLOW EVALUATION NAME: Andry Pierre : 1960 ADMISSION DATE: 11/29/2023 ADMITTING DIAGNOSIS: has COPD (chronic obstructive pulmonary disease) ([facility]); PAM (obstructive sleep apnea); Obesity, morbid ([facility]); Lumbar degenerative disc disease; Lumbar radiculopathy; Lumbar facet arthropathy; Osteoarthritis of both knees; Diabetic neuropathy ([facility]); Morbid obesity ([facility]); Sleep apnea, obstructive; Encounter for medication monitoring; Chronic kidney disease (CKD), stage III (moderate) ([facility]); Hyperkalemia; Fatigue; Pill rolling tremor; Muscle cramps; Acute renal failure (ARF) ([facility]); Type II or unspecified type diabetes mellitus without mention of complication, not stated as uncontrolled; Depression; Irritable bowel syndrome; Obesity; CHF (congestive heart failure) ([facility]); Parkinson disease; Tremors of nervous system; Tracheostomy in place ([facility]); Bilateral lower extremity edema; CKD (chronic kidney disease); Uncontrolled hypertension; Dysphagia; Hyperlipidemia; History of DVT (deep vein thrombosis); Congenital heart disease; Emphysema of lung ([facility]); Hernia; Stroke risk; GERD (gastroesophageal reflux disease); Asthma; Renal disease; Gout; S/P deep brain stimulator placement; Parkinsons; CKD (chronic kidney disease) stage 2, GFR 60-89 ml/min; Type II or unspecified type diabetes mellitus with renal manifestations, not stated as uncontrolled(250.40); Encounter for chronic pain management; Weight loss, intentional; Spondylarthrosis; Primary osteoarthritis of both knees; DM type 2 with diabetic peripheral neuropathy ([facility]); Need for immunization against influenza; Morbid obesity [...] of Eval: 11/30/2023 Evaluating Therapist: Janis Velazco CONTRACTING OFFICER Current Diet level: Current Diet : NPO [...] brain stimulator 10/2008 who initially presented to [facility] 11/24 s/p fall in bathroom with acute left hip/upper thigh and back pain (hit head, no LOC) presents with No chief complaint on file. and is admitted to the hospital for the management of AMS (altered mental status). Patient transferred from [place] after undergoing tilt table evaluation for concern for orthostasis on 11/28/2022 with history of recurrent episodes of dizziness with history of stroke, complicated history. tilt table test complicated by worsening acute symptoms of dizziness with chest pain with altered sensorium. Although tilt test unremarkable for orthostasis, patient was evaluated in ED with acute symptoms and recommended admission [facility]. Unfortunately with bed [...] with occasional shortness of breath While in [place] ED patient did develop symptomatic hypoglycemia with blood sugars in the 50s with symptoms of feeling funny . 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 ([facility]) Bilateral foot-drop Other acquired deformity of ankle and foot documented in this encounter [facility]* Diagnosis CIDP (chronic inflammatory demyelinating polyneuropathy) ([facility])- Primary Chronic inflammatory demyelinating polyneuritis documented in this encounter [facility] Healthcare[facility] note* Diagnosis Diabetic mononeuropathy associated with diabetes mellitus due to underlying condition ([facility])- Primary CIDP (chronic inflammatory demyelinating polyneuropathy) ([facility]) Chronic inflammatory demyelinating polyneuritis documented in this encounter [facility] HealthcareEvaluation note* Diagnosis Intention tremor Essential and other specified forms of tremor documented in this encounter [facility] [...] Hospitalization History CELLULITUS Hospitalization History HEART FAILURE [employer] Other InstructionsNot on filedocumented in this encounter [facility] Summary Purpose Family History No Family [...] Documents on File Type Date Recorded 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 Advance Directive(s) Advance Directive(s) 01/05/2020 5:50 AM Advance Directive(s) 06/24/2019 10:59 AM Advance Directive(s) 06/24/2019 2:04 PM Advance Directive(s) 06/24/2019 2:00 PM Advance Directive(s) 06/18/2019 12:37 PM Advance Directive(s) 07/18/2016 2:43 PM Documents on File Type Date Recorded 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 Advance Directive(s) 06/24/2019 2:00 PM [...] section and content) DATE CREATED AUTHOR 10/30/2021 [facility] DATE CREATED AUTHOR AUTHOR'S ORGANIZ ATION 05/31/2022 [facility] DATE CREATED AUTHOR AUTHOR'S ORGANIZ ATION 03/14/2023 [facility] DATE CREATED AUTHOR AUTHOR'S ORGANIZ ATION 08/14/2023 [facility] DATE CREATED AUTHOR AUTHOR'S ORGANIZ ATION 10/19/2023 [facility] DATE CREATED AUTHOR AUTHOR'S ORGANIZ ATION 11/10/2023 [facility] DATE CREATED AUTHOR AUTHOR'S ORGANIZ ATION 12/05/2023 [facility] DATE CREATED AUTHOR AUTHOR'S ORGANIZ ATION 12/06/2023 [facility] DATE CREATED AUTHOR AUTHOR'S ORGANIZ ATION 12/14/2023 [facility] DATE CREATED AUTHOR AUTHOR'S ORGANIZ ATION 08/01/2024 [facility] DATE CREATED AUTHOR AUTHOR'S ORGANIZ ATION 10/26/2024 [facility] DATE CREATED AUTHOR AUTHOR'S ORGANIZ ATION 02/11/2025 [facility] DATE CREATED AUTHOR AUTHOR'S DAMARI SAHU 04/25/2025 [facility] Source Comments (unrecognize d section and content) In the event this informatio n is protected by the Federal Confidentiality of Alcohol and Drug Abuse Patient Records regulations: The Federal rules restrict any use of the information to criminally investigate or prosecute any alcohol or drug abuse patient.[facility] the event this information is protected by the Federal Confidentiality of Alcohol and Drug Abuse Patient Records regulations: The Federal rules restrict any use of the information to criminally investigate or prosecute any alcohol or drug abuse patient.[facility] Hospital[facility] the event this information is protected by the Federal Confidentiality of Alcohol and Drug Abuse Patient Records regulations: The Federal rules restrict any use of the information to criminally investigate or prosecute any alcohol or drug abuse patient.[facility] Hospital[facility] the event this information is protected by the Federal Confidentiality of Alcohol and Drug Abuse Patient Records regulations: The Federal rules restrict any use of the information to criminally investigate or prosecute any alcohol or drug abuse patient.[facility] Hospital[facility] the event this information is protected by the Federal Confidentiality of Alcohol and Drug Abuse Patient Records regulations: The Federal rules restrict any use of the information to criminally investigate or prosecute any alcohol or drug abuse patient.[facility] Hospital[facility] the event this information is protected by the Federal Confidentiality of Alcohol and Drug Abuse Patient Records regulations: The Federal rules restrict any use of the information to criminally investigate or prosecute any alcohol or drug abuse patient.[facility] Hospital[facility] the event this information is protected by the Federal Confidentiality of Alcohol and Drug Abuse Patient Records regulations: The Federal rules restrict any use of the information to criminally investigate or prosecute any alcohol or drug abuse patient.[facility] Hospital[facility] the event this information is protected by the Federal Confidentiality of Alcohol and Drug Abuse Patient Records regulations: The Federal rules restrict any use of the information to criminally investigate or prosecute any alcohol or drug abuse patient.[facility] Hospital[facility] the event this information is protected by the Federal Confidentiality of Alcohol and Drug Abuse Patient Records regulations: The Federal rules restrict any use of the information to criminally investigate or prosecute any alcohol or drug abuse patient.[facility] Reason for Visit (unrecogniz ed section and content) Reason Comments DBS MARIA G message Reason Comments Pre-Op Visit Reason Comments Results Reason Comments DBS problem Reason Comments New Patient Consult Specialty Diagnoses / Procedures Referred By Contac t Referred To Contact Neurology Diagnoses Weakness Procedures CONSULT TO NEUROLOGY OFFICE/OUTPATIENT NEW HIGH MDM 60-74 MINUTES Shane Parham PA-C [address] [place] [address] Referral ID Status Reason Start Date Expiration Date V isits Requested Visits Authorized [id number] Closed PCP Requested Referral 09/19/2023 09/18/2024 1 1 Specialty Diagnoses / Procedures Referred By Contac t Referred To Contact Diagnoses Syncope and collapse Procedures Tilt table Diogenes Rodriguez MD [id number] [place] [address] Referral ID Status Reason Start Date Expiration Date V isits Requested Visits Authorized [id number] Authorized 11/04/2023 11/03/2024 1 1 Specialty Diagnoses / Procedures Referred By Contac t Referred To Contact Diagnoses AMS (altered mental status) Altered mental status altered mental status [facility] [address] [place] [address] [facility] [address] [place] [address] Referral ID Status Reason Start Date Expiration Date Visits Re quested Visits Authorized [id number] 1 1 Reason Comments Med Refill Care Teams (unrecognized sec tion and content) Hotel Service Manager Relationship Specialty Start Date End Date Say Mccormick MD PCP - General Family Practice 07/15/16 Hotel Service Manager Relationship Specialty Start Date End Date Say Mccormick MD [address] [place] [address] PCP - General Family Practice 07/15/16 Saúl Lunsford MD [address] [place] [address] Cardiology 01/21/22 Hotel Service Manager Relationship Specialty Start Date End Date Say Mccormick MD [address] [place] [address] PCP - General Family Practice 07/15/16 [facility] [address] [place] [address] Cardiology 01/21/22 Hotel Service Manager Relationship Specialty Start Date End Date Say Mccormick MD [address] [place] [address] PCP - General Family Practice 07/15/16 [facility] [address] [place] [address] Cardiology 01/21/22 Hotel Service Manager Relationship Specialty Start Date End Date Say Mccormick MD [address] [place] [address] PCP - General Family Practice 07/15/16 Saúl Lunsford MD [address] [facility] [place] [address] Cardiology 01/21/22 Hotel Service Manager Relationship Specialty Start Date End Date Say Mccormick MD PCP - General Family Medicine 07/15/16 Saúl Lunsford MD [address] [facility] [address] Cardiology 01/21/22 Hotel Service Manager Relationship Specialty Start Date End Date Say Mccormick MD PCP - General Family Medicine 07/15/16 Saúl Lunsford MD [address] [facility] [address] Cardiology 01/21/22 Hotel Service Manager Relationship Specialty Start Date End Date Say Mccormick MD PCP - General Family Medicine 07/15/16 Saúl Lunsford MD [address] [facility] [address] Cardiology 01/21/22 Hotel Service Manager Relationship Specialty Start Date End Date Say Mccormick MD [address] [place] [facility] [place] [address] PCP - General Family Medicine 08/11/18 Hotel Service Manager Relationship Specialty Start Date End Date Say Mccormick MD [address] [facility] [place] [address] PCP - General Family Medicine 08/11/18 Hotel Service Manager Relationship Specialty Start Date End Date Say Mccormick MD [address] [place] [facility] [place] [address] PCP - General Family Medicine 03/24/24 Hotel Service Manager Relationship Specialty Start Date End Date Say Mccormick MD [address] [facility], [facility] PCP - General Family Medicine 03/24/24 Hotel Service Manager Relationship Specialty Start Date End Date Say Mccormick MD [address] [facility], [facility] PCP - General Family Medicine 03/24/24 Hotel Service Manager Relationship Specialty Start Date End Date Say Mccormick MD [address] [facility], [facility] PCP - General Family Medicine 03/24/24 Hotel Service Manager Relationship Specialty Start Date End Date Say Mccormick MD [address] [facility], [facility] PCP - General Family Medicine 03/24/24 Hotel Service Manager Relationship Specialty Start Date End Date Say Mccormick MD [address] [facility], [facility] PCP - General Family Medicine 03/24/24 Hotel Service Manager Relationship Specialty Start Date End Date Say Mccormick MD [address] [place] [facility] [place] [address] PCP - General Family Medicine 03/24/24 Hotel Service Manager Relationship Specialty Start Date End Date Say Mccormick MD [address] [place] [address] PCP - General 06/15/18 Hotel Service Manager Relationship Specialty Start Date End Date Say Mccormick MD PCP - General Family Medicine 03/24/24 Ordered [...] RN)2003 (Given - Provider: Merissa Rice RN) 0933 (Given - Provider: Rachel Espana RN)2012 (Given [...] 0906 (Given - Provider: Janneth Nelson RN) insulin [...] First dose on 11/29/23 at 2100, Until Discontinued, For Line Patency: [...] RN)2012 (Given - Provider: Merissa Rice RN) 0956 (Given - Provider: Janneth eNlson RN)2100 (Due) topiramate (TOPAMAX) tablet 100 mg 100 mg, Oral, 2 TIMES DAILY, First dose on 11/30/23 at 0230, Until Discontinued, It is not recommended to crush, break, or chew immediate release tablets due to bitter taste. 0748 (Given - Provider: Rachel Espana RN)2003 (Given - Provider: Merissa Rice RN) 0934 (Given - Provider: Rachel Espana, NABEEL)2012 (Given - Provider: Merissa Rice RN) 09 (Given - Provider: Janneth Nelson, RN)2100 (Due) valsartan (DIOVAN) tablet 160 mg 160 mg, Oral, DAILY, First dose (after last modification) on 12/01/23 at 0900, Until Discontinued, Substituted for Candesartan (ATACAND) 0748 (Given - Provider: Rachel Espana RN) 0933 (Given - Provider: Rachel Espana RN) 09 (Given - Provider: Janneth Nelson, NABEEL) Vitamin D (CHOLECALCIFEROL) tablet 5,000 Units 5,000 Units, Oral, DAILY, First dose on 11/30/23 at 0900, Until Discontinued, Labeling may look different. 25 [id number] Units. Please double check dosages. 0748 (Given - Provider: Rachel Espana, RN) 0933 (Given - Provider: Rachel Espana, RN) 0906 (Given - Provider: Janneth Nelson RN) warfarin (COUMADIN) tablet 10 mg (COMPLETED) 10 mg, Oral, ONCE Warfarin, 1 dose, On 12/06/23 at 1800, Indication of Use: History of DVT/PE (indefinite), What is the patient's goal INR? 2.0 - 3.0, Review INR prior to administration. Hazardous med- See facility policy for handling/disposal 4104 (Given - Provider: Rachel Espana, NABEEL) warfarin placeholder: dosing by pharmacy Please contact [...] Espana, NABEEL)1544 (Given - Provider: Rachel Espana, NABEEL)2005 (Given - Provider: Merissa Rice RN) 0032 (Given - Provider: Merissa Rice RN)0443 (Given - Provider: Merissa Rice RN)0934 (Given - Provider: Rachel Espana RN) morphine (PF) injection 2 mg (CANCELED) 2 mg, IntraVENous, EVERY 8 HOURS PRN, Starting on 12/07/23 at 0945, Until 12/07/23 at 8, Pain Severe (7-10), If oral and IV [...] Janneth Nelson RN)1917 (Given - Provider: Janneth Nelson, NABEEL) ondansetron (ZOFRAN) injection 4 mg(Linked Group 3) [...] 17 g, Oral, DAILY PRN, Starting on 2/24/24 at 2011, Until Discontinued, Constipation, First line [...] BE BASED ON THE PRIMARY CLINICAL RECORDS. [facility]. provides no warranty or guarantee of the accuracy or completeness of information in this document.
--- NOTE | 2025-06-09 11:37 | PM.CN ---
Consult Note: HPI Data of Consult Patient: known to practice within the last 3 years Consult date: 06/09/25 Requesting Physician: Kimmie Ayoub NP Primary Care Provider: Say Amato MD Consult Narrative Reason for consult: nerve pain Narrative: Destiny Grace a pleasant 64 year old male presents for evaluation of chronic inflammatory demyelinating polyneuropathy. pt is on oxycodone 10-20mg tid through pcp with minimal relief, cannot take NSAIDs due to eliquis and hx of DVT/CVA/PE. pt has allergies to gabapentin and lyrica, failed duloxetine. hx of deep brain stimulator with lead fractures, cannot undergo surgery due to risks. not current following with neurology. cc:: CC: Kimmie Ayoub NP Review of Systems ROS Musculoskeletal Reports: back pain, neck pain and extremity pain PFSH PFSH Medical History Acid reflux ?K21.9 - Gastro-esophageal reflux disease without esophagitis (ICD-10) Angina at rest ?I20.89 - Other forms of angina pectoris (ICD-10) CHF (congestive heart failure) ?I50.9 - Heart failure, unspecified (ICD-10) COPD (chronic obstructive pulmonary disease) ?J44.9 - Chronic obstructive pulmonary disease, unspecified (ICD-10) Emphysema lung ?J43.9 - Emphysema, unspecified (ICD-10) High cholesterol ?E78.00 - Pure hypercholesterolemia, unspecified (ICD-10) Implantable loop recorder present ?Z95.818 - Presence of other cardiac implants and grafts (ICD-10) Kidney failure ?N19 - Unspecified kidney failure (ICD-10) Palpitations ?R00.2 - Palpitations (ICD-10) Stroke ?I63.9 - Cerebral infarction, unspecified (ICD-10) Surgical History Status post emergency tracheotomy for assistance in breathing ?Z93.0 - Tracheostomy status (ICD-10) History of hydrocelectomy ?Z98.890 - Other specified postprocedural states (ICD-10) History of cardiac cath ?Z98.890 - Other specified postprocedural states (ICD-10) History of tonsillectomy ?Z90.89 - Acquired absence of other organs (ICD-10) History of sinus surgery ?Z98.890 - Other specified postprocedural states (ICD-10) History of carpal tunnel release ?Z98.890 - Other specified postprocedural states (ICD-10) H/O arthroscopic knee surgery ?Z98.890 - Other specified postprocedural states (ICD-10) History of ankle surgery ?Z98.890 - Other specified postprocedural states (ICD-10) History of Achilles tendon repair ?Z98.890 - Other specified postprocedural states (ICD-10) H/O inguinal hernia repair ?Z98.890 - Other specified postprocedural states (ICD-10) ?Z87.19 - Personal history of other diseases of the digestive system (ICD-10) Status post deep brain stimulator placement ?Z96.89 - Presence of other specified functional implants (ICD-10) Hx of cholecystectomy ?Z90.49 - Acquired absence of other specified parts of digestive tract (ICD-10) Social History Smoking status: Never smoker Highest level of school completed/degree received: Bachelor's degree Little interest or pleasure in doing things: not at all Feeling down, depressed, or hopeless: not at all Meds Home Medications and Allergies Home Medications ?Medication ?Instructions ?Recorded ?Confirmed ?Type atorvastatin 40 mg tablet 40 mg PO .QD 04/01/23 10/21/24 History candesartan 8 mg tablet 4 mg PO .QD 04/01/23 10/21/24 History cetirizine 10 mg tablet 10 mg PO DAILY PRN allergy symptoms 04/01/23 10/21/24 History clonidine HCl 0.1 mg tablet 0.05 mg PO BID 04/01/23 10/21/24 History furosemide 40 mg tablet 40 mg PO BID 04/01/23 10/21/24 History montelukast 10 mg tablet 10 mg PO .QD 04/01/23 10/21/24 History nifedipine 90 mg tablet,extended 90 mg PO .QD 04/01/23 10/21/24 History release 24 hr pantoprazole 40 mg tablet,delayed 40 mg PO .QD 04/01/23 10/21/24 History release potassium chloride 20 mEq 20 meq PO .QD 04/01/23 10/21/24 History tablet,extended release topiramate 50 mg tablet 100 mg PO Q12H 04/01/23 10/21/24 History empagliflozin 10 mg tablet 10 mg PO QDAY 10/08/23 10/21/24 History (Jardiance) insulin degludec 100 unit/mL (3 56 unit subcut BID 10/08/23 10/21/24 History mL) subcutaneous pen (Tresiba FlexTouch U-100 insulin) hydrocodone 7.5 mg-acetaminophen 1 tab PO BID PRN pain #60 tabs 11/27/23 10/21/24 Rx 325 mg tablet naloxone 4 mg/actuation nasal 4 mg intranasal Q2M PRN opioid 11/27/23 10/21/24 Rx spray (Narcan) overdose #2 ea hydrocodone 7.5 mg-acetaminophen 1 tab PO TID PRN pain #90 tabs 12/10/23 Rx 325 mg tablet hydrocodone 7.5 mg-acetaminophen 1 tab PO Q6H PRN pain #12 tabs 03/23/24 Rx 325 mg tablet ondansetron 4 mg disintegrating 4 mg PO Q8H PRN nausea and 03/23/24 10/21/24 Rx tablet vomiting 4 days #16 tabs apixaban 2.5 mg tablet (Eliquis) 2.5 mg PO BID 10/21/24 10/21/24 History bumetanide 2 mg tablet mg 10/21/24 History linaclotide 145 mcg capsule mcg 10/21/24 History (Linzess) metformin 500 mg tablet mg 10/21/24 History metoprolol tartrate 50 mg tablet mg 10/21/24 History Allergies Allergy/AdvReac Type Severity Reaction Status Date / Time diazepam (From Valium) Allergy Unknown Verified 10/21/24 10:46 gabapentin (From Neurontin) Allergy Unknown Verified 10/21/24 10:46 BETA BLOCKERS Allergy Headache Uncoded 10/21/24 10:46 Exam Constitutional Documenting provider has reviewed patient's vital signs: yes Common normals: no apparent distress, oriented x3 and alert General appearance: cooperative HENMT Common normals: normocephalic, hearing grossly normal bilaterally and moist oral mucous membranes Head and scalp: normocephalic Eye Common normals: PERRL Pupil: PERRL Neck & C-Spine General: normal visual inspection Cervical spine: cervical ROM abnormal and pain with cervical ROM Chest Common normals: inspection of chest normal Respiratory Common normals: normal respiratory effort, no retractions and no use of accessory muscles Neuro Common normals: oriented x3 Sensorium/orientation: alert Gait (neuro): unable to assess gait Other: strength 3/5 in BUE and BLE Psych Common normals: mental status grossly normal, thought process normal, cooperative, affect normal, speech normal and activity/motor behavior normal Speech: normal speech Thought process: normal thought process Assessment and Plan Assessment and Plan (1) Chronic inflammatory demyelinating polyneuritis: (2) Chronic, continuous use of opioids: Plan 64 year old male presents for evaluation of chronic pain secondary to chronic inflammatory demyelinating polyneuritis, unfortunately we will not be able to provide treatment for this patient. I have recommended he establsih with neurology as recommended by his PCP and we will place a referral to [facility] pain program for consultation.
== END 2025-06-09 10:30 | disposition home or self-care (01) ==
PROVIDERS: PCP Family Medicine; Visit Provider Nurse Practitioner
DX: G61.81 Chronic inflammatory demyelinating polyneuritis (principal); Z79.891 Long term (current) use of opiate analgesic
CPT/HCPCS: G0463